=== PATIENT | female | born 1960 | race Caucasian/White ===

== ENCOUNTER 2023-05-18 07:38 | Outpatient (OUT) | payer OTHER, SELFPAY ==
--- NOTE | 2023-05-18 08:07 | P.CN_ITS ---
Consult Note: HPI Data of Consult Patient: new to practice Requesting Physician: Eda Christianson NP Primary Care Provider: Non-Staff Physician, MD Consult Narrative Reason for consult: establish care Narrative: Carmen Casiano a pleasant 62 year old female presents for evaluation and management on right hip pain that radiates into right lateral thigh, also has chronic low back pain with right sided radiculopathy. Pain 8/10 describes as a pulling sensation. Patients family doctor prescribed an anti-inflammatory and flexeril which is providing mild relief. No recent imaging or PT. KYLIE 58% cc:: CC: Eda Christianson NP Review of Systems ROS Status of ROS 10 or more systems reviewed and unremarkable except as noted in history and below Musculoskeletal Reports: back pain Exam Constitutional Documenting provider has reviewed patient's vital signs: yes Common normals: no apparent distress, oriented x3, healthy appearing, alert and well nourished General appearance: cooperative Nutritional appearance: obese HENMT Common normals: normocephalic, hearing grossly normal bilaterally and moist oral mucous membranes Head and scalp: normocephalic Eye Common normals: PERRL Pupil: PERRL Neck & C-Spine Common normals: full ROM General: normal visual inspection Chest Common normals: inspection of chest normal Respiratory Common normals: normal respiratory effort, no retractions and no use of a ccessory muscles Back & Pelvis Lumbar spine/lower back: ROM limited, pain with ROM and straight leg raise positive right Sacroiliac joints: SI joints normal Extremity Common normals: normal to inspection and full ROM Other: negative internal and external rotation of hip, no tenderness over GTB pain and pain with touch over right IT band pattern Extremity image (front): 1. Neuro Common normals: oriented x3, CN's II-XII intact bilaterally, moves all extremities, no focal motor deficits, no sensory deficits noted, deep tendon reflexes 2+ bilaterally and gait normal Sensorium/orientation: alert Motor exam: strength 5/5 throughout and no movement abnormalities noted Psych Common normals: mental status grossly normal, thought process normal, cooperative, affect normal, speech normal and activity/motor behavior normal Speech: normal speech Thought process: normal thought process Assessment and Plan Assessment and Plan (1) Iliotibial band tendonitis of right side: (2) Iliotibial band syndrome: (3) Lumbar stenosis: (4) Lumbar radiculopathy: (5) Lumbar spondylosis: (6) Lumbar degenerative disc disease: (7) Obesity: Assessment and Plan: The patient was counseled that proper dietary changes and consistent participation in a home exercise plan can lead to weight loss. Weight loss can help to improve functionality in patients with chronic pain.? Plan continue current medications through PCP finding benefit start topical OTC difclofenac to affected right IT band as discussed today BID- TID PRN PT for low back pain with radiculopathy and right IT band syndrome/tendonitis, patient would like to go to [facility] right IT band injection with Dr Palmer continue chiropractor care as tolerated no additional imaging at this time, reviewed [facility] spine xray from earlier this year which shows DDD, lumbar facet arthropathy f/u 6 weeks to further evaluate LBP with radiculopathy and assess right IT band pain
== END 2023-05-18 07:39 | disposition home or self-care (01) ==
PROVIDERS: Visit Provider Nurse Practitioner
DX: M76.31 Iliotibial band syndrome, right leg (principal); M77.9 Enthesopathy, unspecified; M48.061 Spinal stenosis, lumbar region without neurogenic claudication; M54.16 Radiculopathy, lumbar region; M47.816 Spondylosis without myelopathy or radiculopathy, lumbar region; M51.36 Other intervertebral disc degeneration, lumbar region; E66.9 Obesity, unspecified
CPT/HCPCS: G0463

== ENCOUNTER 2023-05-30 15:18 | Outpatient (OUT) | payer OTHER, SELFPAY ==
--- NOTE | 2023-05-30 16:00 | PM.CN ---
Consult Note: HPI Data of Consult Patient: known to practice within the last 3 years Consult date: 05/30/23 Requesting Physician: Calvin Palmer MD Primary Care Provider: Non-Staff Physician, Consult Narrative Reason for consult: right hip pain Narrative: 62yof who presents for assessment. pain in right hip with radiation down lateral aspect of right thigh. tenderness to palpation of right greater troch bursa. engages in provider directed home exercise program, with minimal benefit. utilizes celebrex. denies adverse med side effects or loss of bowel or bladder control. cc:: CC: Calvin Palmer MD Review of Systems ROS Status of ROS 10 or more systems reviewed and unremarkable except as noted in history and below Meds Home Medications and Allergies Home Medications Medication Instructions Recorded Confirmed Type aripiprazole 2 mg tablet (Abilify) 2 mg PO DAILY 05/18/23 05/18/23 History celecoxib 200 mg capsule (Celebrex) 200 mg PO BID PRN pain 05/18/23 05/18/23 History cholecalciferol (vitamin D3) 50 50 mcg PO DAILY 05/18/23 05/18/23 History mcg (2,000 unit) capsule (Vitamin D3) empagliflozin 10 mg tablet 10 mg PO DAILY 05/18/23 05/18/23 History (Jardiance) fluoxetine 20 mg capsule 40 mg PO DAILY 05/18/23 05/18/23 History furosemide 40 mg tablet 40 mg PO DAILY 05/18/23 05/18/23 History glipizide 2.5 mg tablet 2.5 mg PO DAILY 05/18/23 05/18/23 History pantoprazole 40 mg tablet,delayed 40 mg PO DAILY 05/18/23 05/18/23 History release potassium chloride 20 mEq 20 meq PO DAILY 05/18/23 05/18/23 History tablet,extended release(part/cryst) (Klor-Con M) rosuvastatin 40 mg tablet 40 mg PO DAILY 05/18/23 05/18/23 History sacubitril 24 mg-valsartan 26 mg 1 tab PO BID 05/18/23 05/18/23 History tablet (Entresto) spironolactone 25 mg tablet 25 mg PO DAILY 05/18/23 05/18/23 History tizanidine 4 mg tablet 4 mg PO TID PRN muscle spasticity 05/18/23 05/18/23 History Allergies Allergy/AdvReac Type Severity Reaction Status Date / Time No Known Drug Allergies Allergy Verified 05/18/23 08:49 Exam Narrative Exam Narrative: Psych-alert and oriented x 3.? Attentive and appropriate, constitutionally normal, displays normal mood and affect per situation.? There are no obvious deficits in memory, reasoning, or intellect.? Skin-no obvious rashes, bruising, erythema noted to the patient's area of pain. Extremities- extremities are warm with minimal edema and palpable pulses. Hip-tenderness to palpation is noted over the right greater trochanter..? Pain is elicited with internal and external rotation of the hip.? Hip provocative maneuvers are positive and consistent with the patient's normal pain.? Coordination remains intact.? Gait remains antalgic. Assessment and Plan Assessment and Plan (1) Lumbar spondylosis: (2) Lumbar stenosis: (3) Trochanteric bursitis of right hip: Plan 62yof who presents for assessment. worsening right sided hip pain. tenderness over right greater trochanter. given symptoms and failure to respond to conservative measures, prudent to attempt right trochanteric bursa injection. she is in agreement. medications reviewed, no changes. follow up in 3 months or sooner, if needed. Procedure: Right greater trochanteric bursa injection Medications: Bupivacaine 0.25% 4cc, kenalog 40mg I explained the details of the procedure to the patient including the risks, benefits and alternatives. We had an informed discussion and the patient verbalized understanding and signed the consent form. All questions were answered appropriately.? A time out was performed.? The skin overlying the right lateral hip was prepped with alcohol x3. A sterile syringe containing the above medication was attached to a 25 gauge, 3.5 inch needle under strict aseptic technique. The greater trochanter and point of tenderness was palpated. At this point, the needle was then advanced through the subcutaneous tissue down to os. The needle was withdrawn slightly and the contents of the syringe were gently injected without any resistance. The needle was removed and pressure was applied to the injection site to decrease the incidence of ecchymosis and hematoma formation.? A sterile bandage was applied. Post procedural instructions were given to the patient.
== END 2023-05-30 15:19 | disposition home or self-care (01) ==
LOC: PM 15:18
PROVIDERS: Visit Provider Anesthesiology
DX: M47.816 Spondylosis without myelopathy or radiculopathy, lumbar region (principal); M48.061 Spinal stenosis, lumbar region without neurogenic claudication; M70.61 Trochanteric bursitis, right hip
CPT/HCPCS: 20610

== ENCOUNTER 2023-06-09 12:48 | Outpatient (OUT) | payer OTHER, SELFPAY ==
--- NOTE | 2023-06-09 15:27 | P.CN_ITS ---
Consult Note: HPI Data of Consult Patient: known to practice within the last 3 years Requesting Physician: Calvin Palmer MD Primary Care Provider: Non-Staff Physician, Consult Narrative Reason for consult: f/u Narrative: Carmen Casiano a pleasant 62 year old female presents for evaluation and management of chronic right hip pain today 02/10. Patient reporting 75% ongoing pain relief from right GTB injection. Patient continues to have throbbing pain in posterior lumbar spine radiating to right hip area. cc:: CC: Calvin Palmer MD Review of Systems ROS Status of ROS 10 or more systems reviewed and unremark able except as noted in history and below Musculoskeletal Reports: back pain Meds Home Medications and Allergies Home Medications Medication Instructions Recorded Confirmed Type aripiprazole 2 mg tablet (Abilify) 2 mg PO DAILY 05/18/23 05/18/23 History celecoxib 200 mg capsule (Celebrex) 200 mg PO BID PRN pain 05/18/23 05/18/23 History cholecalciferol (vitamin D3) 50 50 mcg PO DAILY 05/18/23 05/18/23 History mcg (2,000 unit) capsule (Vitamin D3) empagliflozin 10 mg tablet 10 mg PO DAILY 05/18/23 05/18/23 History (Jardiance) fluoxetine 20 mg capsule 40 mg PO DAILY 05/18/23 05/18/23 History furosemide 40 mg tablet 40 mg PO DAILY 05/18/23 05/18/23 History glipizide 2.5 mg tablet 2.5 mg PO DAILY 05/18/23 05/18/23 History pantoprazole 40 mg tablet,delayed 40 mg PO DAILY 05/18/23 05/18/23 History release potassium chloride 20 mEq 20 meq PO DAILY 05/18/23 05/18/23 History tablet,extended release(part/cryst) (Klor-Con M) rosuvastatin 40 mg tablet 40 mg PO DAILY 05/18/23 05/18/23 History sacubitril 24 mg-valsartan 26 mg 1 tab PO BID 05/18/23 05/18/23 History tablet (Entresto) spironolactone 25 mg tablet 25 mg PO DAILY 05/18/23 05/18/23 History tizanidine 4 mg tablet 4 mg PO TID PRN muscle spasticity 05/18/23 05/18/23 History Allergies Allergy/AdvReac Type Severity Reaction Status Date / Time No Known Drug Allergies Allergy Verified 05/18/23 08:49 Exam Constitutional Documenting provider has reviewed patient's vital signs: yes Common normals: no apparent distress, oriented x3, healthy appearing, alert and well nourished General appearance: cooperative Nutritional appearance: obese HENMT Common normals: normocephalic, hearing grossly normal bilaterally and moist oral mucous membranes Head and scalp: normocephalic Eye Common normals: PERRL Pupil: PERRL Neck & C-Spine Common normals: full ROM General: normal visual inspection Chest Common normals: inspection of chest normal Respiratory Common normals: normal respiratory effort, no retractions and no use of accessory muscles Back & Pelvis Lumbar spine/lower back: ROM limited, pain with ROM and straight leg raise negative bilaterally Sacroiliac joints: SI joints normal Extremity Common normals: normal to inspection and full ROM Other: negative internal and external rotation of hip, no tenderness over GTB Neuro Common normals: oriented x3, CN's II-XII intact bilaterally, moves all extremities, no focal motor deficits, no sensory deficits noted, deep tendon reflexes 2+ bilaterally and gait normal Sensorium/orientation: alert Motor exam: strength 5/5 throughout and no movement abnormalities noted Psych Common normals: mental status grossly normal, thought process normal, cooperative, affect normal, speech normal and activity/motor behavior normal Speech: normal speech Thought process: normal thought process Assessment and Plan Assessment and Plan (1) Lumbar spondylosis: (2) Trochanteric bursitis of right hip: (3) Obesity: Qualifiers: Obesity type: due to excess calories Obesity classification: unspecified obesity classification Serious obesity comorbidity presence: unspecified whether serious comorbidity present Qualified Code(s): E66.09 - Other obesity due to excess calories Plan PT never started, pt will start consider bilateral L4-5 l5-S1 mbb x2 continue current medications f/u 6 weeks
== END 2023-06-09 12:49 | disposition home or self-care (01) ==
LOC: PM 12:48
PROVIDERS: Visit Provider Anesthesiology
DX: M47.816 Spondylosis without myelopathy or radiculopathy, lumbar region (principal); M70.61 Trochanteric bursitis, right hip; E66.09 Other obesity due to excess calories
CPT/HCPCS: G0463

== ENCOUNTER 2024-01-25 12:52 | Outpatient (OUT) | payer OTHER, SELFPAY ==
--- NOTE | 2024-01-25 13:52 | P.CN_ITS ---
Consult Note: HPI Data of Consult Patient: known to practice within the last 3 years Requesting Physician: Eda Christianson NP Primary Care Provider: Non-Staff Physician, MD Consult Narrative Reason for consult: low back right leg pain Narrative: Carmen Casiano a pleasant 63 year old female presents for evaluation and management of lumbar stenosis with NC. Patient following with NS who recommends right L4-5 TFESI prior to surgical intervention. Patient has failed to benefit from greater than 6 weeks of PT/HEP, tylenol, motrin, gabapentin 300mg TID, and tramadol 50mg PRN. cc:: CC: Eda Christianson NP Review of Systems ROS Status of ROS 10 or more systems reviewed and unremark able except as noted in history and below Musculoskeletal Reports: back pain Meds Home Medications and Allergies Home Medications ?Medication ?Instructions ?Recorded ?Confirmed ?Type aripiprazole 2 mg tablet (Abilify) 2 mg PO DAILY 05/18/23 05/18/23 History celecoxib 200 mg capsule (Celebrex) 200 mg PO BID PRN pain 05/18/23 05/18/23 History cholecalciferol (vitamin D3) 50 50 mcg PO DAILY 05/18/23 05/18/23 History mcg (2,000 unit) capsule (Vitamin D3) empagliflozin 10 mg tablet 10 mg PO DAILY 05/18/23 05/18/23 History (Jardiance) fluoxetine 20 mg capsule 40 mg PO DAILY 05/18/23 05/18/23 History furosemide 40 mg tablet 40 mg PO DAILY 05/18/23 05/18/23 History glipizide 2.5 mg tablet 2.5 mg PO DAILY 05/18/23 05/18/23 History pantoprazole 40 mg tablet,delayed 40 mg PO DAILY 05/18/23 05/18/23 History release potassium chloride 20 mEq 20 meq PO DAILY 05/18/23 05/18/23 History tablet,extended release(part/cryst) (Klor-Con M) rosuvastatin 40 mg tablet 40 mg PO DAILY 05/18/23 05/18/23 History sacubitril 24 mg-valsartan 26 mg 1 tab PO BID 05/18/23 05/18/23 History tablet (Entresto) spironolactone 25 mg tablet 25 mg PO DAILY 05/18/23 05/18/23 History tizanidine 4 mg tablet 4 mg PO TID PRN muscle spasticity 05/18/23 05/18/23 History Allergies Allergy/AdvReac Type Severity Reaction Status Date / Time No Known Drug Allergies Allergy Verified 05/18/23 08:49 Exam Constitutional Documenting provider has reviewed patient's vital signs: yes Common normals: no apparent distress, oriented x3, healthy appearing, alert and well nourished General appearance: cooperative Nutritional appearance: obese HENMT Common normals: normocephalic, hearing grossly normal bilaterally and moist oral mucous membranes Head and scalp: normocephalic Eye Common normals: PERRL Pupil: PERRL Neck & C-Spine Common normals: full ROM General: normal visual inspection Chest Common normals: inspection of chest normal Respiratory Common normals: normal respiratory effort, no retractions and no use of accessory muscles Back & Pelvis Lumbar spine/lower back: ROM limited, pain with ROM and straight leg raise positive right Sacroiliac joints: SI joints normal Other: pain following right L4,5,S1 dermatomal pattern strength 4/5 in RLE, 5/5 in LLE Extremity Common normals: normal to inspection and full ROM Other: negative internal and external rotation of hip, no tenderness over GTB Neuro Common normals: oriented x3, CN's II-XII intact bilaterally, moves all extremities, no focal motor deficits, no sensory deficits noted and deep tendon reflexes 2+ bilaterally Sensorium/orientation: alert Gait (neuro): antalgic Motor exam: no movement abnormalities noted Psych Common normals: mental status grossly normal, thought process normal, cooperative, affect normal, speech normal and activity/motor behavior normal Speech: normal speech Thought process: normal thought process Results Additional Findings Additional findings: If on a controlled substance or opioids, I have checked an [place] report on this patient and there are no aberrancies noted in the prescribing history.??If on a controlled substance or opioid a drug screen was completed and reviewed within the last year, and if there has not been a drug screen completed we ordered one today to monitor higher risk, state monitored pain medication use. As part of providing excellent, safe, comprehensive care, the following was completed at our patient's visit: 1. A medication reconciliation and review to ensure accurate knowledge of current/active medications, including asking our patients to inform us about any [id number] medications or herbal remedies/nutritional supplements/alternative remedies. 2. A review to specifically ensure our patients have had annual screening for screening for depression, screening for tobacco use, and screening for unhealthy alcohol use. For concerning screenings had a discussion with the patient, provided patient education, and recommended follow-up with primary care provider when appropriate. If patient noted with a risk of falling, they received education on strength, gait, and balance training to prevent future risk of falling. Assessment and Plan Assessment and Plan (1) Lumbar stenosis with neurogenic claudication: (2) Lumbar radiculopathy: Plan right L4-5 L5-S1 TFESI under fluoroscopy risks vs benefits reviewed continue medications through PCP/NS f/u 2 weeks after RON[facility]
== END 2024-01-25 12:53 | disposition home or self-care (01) ==
LOC: PM 12:53
PROVIDERS: Visit Provider Nurse Practitioner
DX: M48.062 Spinal stenosis, lumbar region with neurogenic claudication (principal); M54.16 Radiculopathy, lumbar region
CPT/HCPCS: G0463

== ENCOUNTER 2024-02-06 08:42 | Day surgery (SDC) | payer OTHER, SELFPAY ==
[2024-02-06 08:53] VITALS: BP 158/89; PULSE 67; TEMP 36.3; O2SAT 97
--- OUTSIDE RECORDS SUMMARY | 2024-02-06 09:03 | XMS_ITS | CCD ---
Author Organization [facility] Inform ion [facility] Care Team Providers Care Metal Grinder Name Role Phone Mulu Dean Primary Care Provider Mulu DEAN Primary Care Physician [phone] Myron Rust Primary Care Physician Jermaine CREDIT COLLECTIONS CLERK - UPPER MARKER, Mulu Primary Care Pro vider NON STAFF Primary Care Provider Unavailabl e DO Joo Ramos Emergency Provider MD Marilyn Sun Admit Provider [phone] MD Marilyn Sun Attending Provider DO Joo Ramos Emergency Provider MD Marilyn Sun Admit Provider MD José Sanchez Attending Provider MD Lupis Schwartz Primary Care Provider Marilyn Sun Admitting Unavailable José Sanchez Attending Unavailable Lupis Schwartz Primary Care Unavailable Lupis SCHWARTZ Primary Care Physician Jermaine CREDIT COLLECTIONS CLERK - UPPER MARKER, Mulu Primary Care Pro vider Yocasta MOREJON - Myron VILLATORO Primary Care Provider MYRON RUST Referring Unavailable MYRON RUST Primary Care Unavailable Myron Rust Primary Care Physician KAMALJIT MENENDEZ Attending Unavailable KAMALJIT MENENDEZ Referring Unavailable YOCASTA, MYRON Primary Care Unavailable ALIRIO RAMIREZ Referring Unavailab le YOCASTA, MYRON Primary Care Unavailable NATHANIEL, MIHIR Referring Unavailable YOCASTA, MYRON Primary Care Unavailable KAMALJIT MENENDEZ Referring Unavailable YOCASTA, MYRON Primary Care Unavailable YOCASTA, MYRON Referring Unavailable YOCASTA, MYRON Primary Care Unavailable YOCASTA, MYRON Referring Unavailable YOCASTA, MYRON Primary Care Unavailable YOCASTA, MYRON Referring Unavailable YOCASTA, MYRON Primary Care Unavailable NATHANIEL, MIHIR Referring Unavailable YOCASTA, MYRON Primary Care Unavailable NATHANIEL, MIHIR Referring Unavailable YOCASTA, MYRON Primary Care Unavailable YOCASTA, MYRON Primary Care Unavailable AURA MENONELIN Attending Unavailable LYNSEY VESELIN Attending Unavailable YOCASTA, MYRON Primary Care Unavailable NATHANIEL, MIHIR Referring Unavailable YOCASTA, MYRON Primary Care Unavailable Alirio Ramirez Referring UnavailAlirio Martinez Admitting UnavailAlirio Martinez Consulting Unavaila Alirio Brandon Attending UnavailMD Alirio Martinez Consulting Unava ilAlirio Bird Consulting Unavaila ble Walker Phillip Attending Unavaila ble Walker Phillip Attending Unavaila Scott Rivera Attending Unavailable Yocasta, MSN, CREDIT COLLECTIONS CLERK-UPPER MARKER Myron Hamilton Attending U navailable Yocasta, MSN, CREDIT COLLECTIONS CLERK-UPPER MARKER Myron Hamilton Attending U navailable Yocasta, MSN, CREDIT COLLECTIONS CLERK-UPPER MARKER Myron Hamilton Attending U navailable Yocasta, MSN, CREDIT COLLECTIONS CLERK-UPPER MARKER Myron Hamilton Attending U navailable Yocasta, MSN, CREDIT COLLECTIONS CLERK-UPPER MARKER Myron Hamilton Attending U navailable Ansley Carrero Attending Unavailable Yocasta, MSN, CREDIT COLLECTIONS CLERK-UPPER MARKER Myron L. Attending U navailable Yocasta, MSN, CREDIT COLLECTIONS CLERK-UPPER MARKER Myron Hamilton Attending U navailable Yocasta, MSN, CREDIT COLLECTIONS CLERK-UPPER MARKER Myron Hamilton Attending U navailable NONE, XXXX Referring Unavailable Alirio Ramirez Attending Unavaila Alirio Brandon Attending Unavaila ble NONE, XXXX Referring Unavailable Walker Phillip Talal Admitting Unavaila ble Walker Phillip Talal Attending Walker Banegas Referring Viktoria velazquez Allergies Allergy Classification Reported Allergen(s) Allergy Type Date of Onset Reaction(s) Facility amLODIPine (1 source) amLODIPine; Translations: [amlodipine] Drug Allergy Leg Edema [facility] Angiotensin Converting Enzyme (DESMOND) Inhibitors (1 source) Lisinopril; Translations: [lisinopril] Drug Allergy Persistent cough (finding), Tongue swelling (finding) [facility] metFORMIN (1 source) metFORMIN; Translations: [metformin] Drug Allergy Diarrhea (finding) [facility] (20 sources) amLODIPine; Translations: [amlodipine] Drug Allergy Leg Edema [facility] (20 sources) Lisinopril; Translations: [lisinopril] Drug Allergy Persistent cough (finding), Tongue swelling (finding) [facility] (20 sources) metFORMIN; Translations: [metformin] Drug Allergy Diarrhea (finding) [facility] (1 source) No Known Medication Allergies; Translations: [No Known Medication Allergies] Propensity to adverse reactions (disorder) [facility] Repository Medications Current Medications Medication Drug Class(es) Dates Sig (Normalized) Sig (Original) albuterol 0.83 mg/ml inhalation solution (20 sources) beta2-Adrenergic Agonist Start: 10-11-2023 take 2.5 mg by inhalation every six hours albuterol 0.083% Inh Rochelle 3 mL 2.5 mg, 3 mL, Inhalation, q6hr Shortness of breath or wheezing, 100 EA, Refill(s) 1, [facility] #[id number], 168, cm, 10/11/23 14:32:00 EDT, Height/Length Dosing, 160.2, kg, 10/11/23 14:32:00 EDT, Weight Dosing Start Date: 10/11/23 Status: Ordered Start: 05-21-2021 albuterol (PRO VENTIL) nebulizer solution 2.5 mg Start: 03-17-2020 albuterol (PRO VENTIL) nebulizer solution 2.5 mg Start: 09-07-2019 albuterol (PRO VENTIL) nebulizer solution 2.5 mg take 2 puff(s) by in halation every four hours as needed for wheezing albuterol sulfate HFA 108 (90 Base) MCG/ACT inhaler Inhale 2 puffs into the lungs every 4 hours as needed for Wheezing 0 Active take 2 puff(s) by in halation every four hours as needed for wheezing albuterol sulfate HFA 108 (90 Base) MCG/ACT inhaler Inhale 2 puffs into the lungs every 4 hours as needed for Wheezing 0 Active Alcohol wipes (20 sources) Start: 04-13-2022 Alcohol wipes Alcohol wipes, See Instructions, 100 EA, 3, Use to check BS daily dx E11.9, [facility] #[id number], Supply, 163, cm, 12/30/21 11:09:00 EDT, Height/Length Dosing, 154, kg, 12/30/21 11:09:00 EDT, Weight Dosing Start Date: 04/13/22 Status: Ordered Start: 06-03-2021 Alcohol wipes Alcohol wipes, See Instructions, 300 EA, 3, Use to check BS TID and PRN dx E11.9, [facility], Supply, 170, cm, 05/27/21 8:31:00 EST, Height/Length Dosing, 157.8, kg, 05/27/21 8:31:00 EST, Weight Dosing Start Date: 06/03/21 Status: Ordered ARIPiprazole 2 mg oral tablet (20 sources) Atypical Antipsychotic Start: 01-19-2024 take 1 tablet by mouth once daily Abilify 2 mg Tab 2 mg = 1 tab(s), Oral, Daily, # 90 tab(s), Refills(s) 3, Pharmacy: [facility] #[id number], 167.6, cm, 12/23/23 10:59:00 EDT, Height/Length Dosing, 136, kg, 12/23/23 10:59:00 EDT, Weight Dosing Start Date: 01/19/24 Status: Ordered Start: 12-30-2021 take 1 tablet by manish th once daily Abilify 2 mg Tab 2 mg = 1 tab(s), Oral, Daily, # 90 tab(s), Refills(s) 3, Pharmacy: [facility] #[id number], 167, cm, 01/11/23 11:15:00 EDT, Height/Length Dosing, 138, kg, 01/11/23 11:15:00 EDT, Weight Dosing Start Date: 01/14/23 Status: Ordered ARIPiprazole (AB ILIFY PO) Abilify 0 Active atorvastatin 80 mg oral tablet (20 sources) HMG-CoA Reductase Inhibitor take 1 tablet by mouth once daily atorvastatin (LIPITOR) 80 MG tablet Take 1 tablet by mouth nightly 0 Active Blood Pressure Kit - XL Cuff (1 source) Start: Blood Pressure Kit - XL Cuff Blood Pressure Kit - XL Cuff, See Instructions, 1 EA, 0, Use at home daily, [facility], Supply, 170, cm, 10/02/19 13:41:00 EDT, Height/Length Measured, 156, kg, 10/02/19 13:41:00 EDT, Weight Measured Start Date: 10/02/19 Status: Ordered calcium chloride 0.0014 meq/ml / potassium chloride 0.004 meq/ml / sodium chloride 0.103 meq/ml / sodium lactate 0.028 meq/ml injectable solution (2 sources) Start: End: lactated ringers infusion celecoxib 200 mg oral capsule (3 sources) Nonsteroidal Anti-inflammatory Drug Start: take 1 capsule by mouth twice daily as needed for pain CeleBREX 200 mg Cap 200 mg = 1 cap(s), Oral, BID, PRN as needed for pain, with food, # 60 cap(s), Refills(s) 0, [facility]: [facility][id number], 167, cm, 05/09/23 8:15:00 EST, Height/Length Dosing, 145.6, kg, 05/09/23 8:15:00 EST, Weight Dosing Start Date: 05/09/23 Status: Ordered cholecalciferol 0.125 mg oral capsule (7 sources) Vitamin D Start: 023 take 1 capsule by mouth once daily at mealtime D 5000 125 MCG (5000 UT) CAPS capsule take 1 capsule by mouth once daily with food 0 10/14/2022 Active 0.5 ml dulaglutide 3 mg/ml auto-injector (20 sources) GLP-1 Receptor Agonist Start: 024 Trulicity Pen 1.5 mg/0.5 mL subcutaneous solution See Instructions, inject 1 AND 1/2 milligrams subcutaneously weekly, # 2 mL, Refills(s) 0, Pharmacy: [facility] #[id number], 167.6, cm, 12/23/23 10:59:00 EDT, Height/Length Dosing, 136, kg, 12/23/23 10:59:00 EDT, Weight Dosing Start Date: 01/17/24 Status: Ordered Start: 12-22-2023 inject 1.5 mg by sub cutaneous injection every week Trulicity Pen 1.5 mg/0.5 mL subcutaneous solution 1.5 mg, SubCutaneous, qWeek, # 4 EA, Refills(s) 0, Pharmacy: [facility] #[id number], 168, cm, 12/06/23 14:55:00 EDT, Height/Length Dosing, 139, kg, 12/06/23 14:55:00 EDT, Weight Dosing Start Date: 12/22/23 Status: Ordered Start: 10-11-2023 inject 1.5 mg by sub cutaneous injection every week Trulicity Pen 1.5 mg/0.5 mL subcutaneous solution 1.5 mg, SubCutaneous, qWeek, # 4 EA, Refills(s) 0, Pharmacy: [facility] #[id number], 168, cm, 10/11/23 14:32:00 EDT, Height/Length Dosing, 160.2, kg, 10/11/23 14:32:00 EDT, Weight Dosing Start Date: 10/11/23 Status: Ordered Start: 09-13-2022 Dulaglutide 0. 75 MG/0.5ML SOPN Inject 0.75 mg into the skin 0 09/13/2022 Active empagliflozin 10 mg oral tablet (20 sources) Sodium-Glucose Cotransporter 2 Inhibitor Start: 08-29-2023 take 1 tablet by mouth once daily Jardiance 10 mg oral tablet 10 mg, Oral, Daily, # 90 tab(s), Refills(s) 2, [id number], 167, cm, 08/10/23 14:24:00 EST, Height/Length Dosing, 151.4, kg, 08/10/23 14:24:00 EST, Weight Dosing Start Date: 08/29/23 Status: Ordered Start: 09-22-2022 empagliflozin (JARDIANCE) 10 MG tablet Take by mouth 0 09/22/2022 Active FLUoxetine 20 mg oral capsule (20 sources) Serotonin Reuptake Inhibitor Start: 09-23-2023 take 2 capsules by mouth once daily FLUoxetine 20 mg Cap 40 mg = 2 cap(s), Oral, Daily, # 180 cap(s), Refills(s) 1, [facility]: [facility] #[id number], 167, cm, 08/10/23 14:24:00 EST, Height/Length Dosing, 151.4, kg, 08/10/23 14:24:00 EST, Weight Dosing Start Date: 09/23/23 Status: Ordered Start: 03-30-2023 take 2 capsules by m outh once daily FLUoxetine 20 mg Cap 40 mg = 2 cap(s), Oral, Daily, covering for Krissy Rust, # 180 cap(s), Refills(s) 1, [facility][id number], 167, cm, 03/18/23 11:56:00 EDT, Height/Length Dosing, 136.6, kg, 03/18/23 11:56:00 EDT, Weight Dosing Start Date: 03/30/23 Status: Ordered Start: 10-08-2022 take 2 capsules by m outh once daily FLUoxetine 20 mg Cap 40 mg = 2 cap(s), Oral, Daily, # 180 cap(s), Refills(s) 1, [facility]acy: [facility] #[id number], 167, cm, 09/29/22 11:37:00 EDT, Height/Length Dosing, 149.2, kg, 09/29/22 11:37:00 EDT, Weight Dosing Start Date: 10/08/22 Status: Ordered Start: 09-10-2022 take 40 mg by mouth once daily Fluoxetine Active 40 MG PO Daily September 10, 2022 1:00am Start: 04-13-2022 take 2 capsules by m outh once daily FLUoxetine 20 mg Cap 40 mg = 2 cap(s), Oral, Daily, # 180 cap(s), Refills(s) 1, [facility][id number], 163, cm, 12/30/21 11:09:00 EDT, Height/Length Dosing, 154, kg, 12/30/21 11:09:00 EDT, Weight Dosing Start Date: 04/13/22 Status: Ordered Start: 04-07-2021 take 2 capsules by m outh once daily FLUoxetine 20 mg Cap 40 mg = 2 cap(s), Oral, Daily, # 180 cap(s), Refills(s) 1, Pharmacy: [facility], 170, cm, 10/13/20 9:06:00 EDT, Height/Length Dosing, 153.3, kg, 10/13/20 9:06:00 EDT, Weight Dosing Start Date: 04/07/21 Status: Ordered take 1 capsule by mo uth once daily FLUoxetine (PROZAC) 40 MG capsule Take 1 capsule by mouth nightly 0 Active fluticasone / salmeterol (20 sources) Corticosteroid, beta2-Adrenergic Agonist Start: 09-16-2022 Fluticasone-Salmeterol (ADVAIR DISKUS IN) See Instructions, Refill(s) 0 0 09/16/2022 Active Start: 09-16-2022 Advair Diskus 100 mcg-50 mcg inhalation powder See Instructions, Refill(s) 0 Start Date: 09/16/22 Status: Ordered Start: 09-14-2022 Fluticasone Pr opion-Salmeterol (Advair Diskus) 100-50 mcg/dose blister with device Active 1 INH INHALATION Twice daily 60 September 14, 2022 12:00am furosemide 40 mg oral tablet (20 sources) Loop Diuretic Start: 08-10-2023 take 1 tablet by mouth once daily furosemide 40 mg Tab 40 mg = 1 tab(s), Oral, Daily, # 90 tab(s), Refills(s) 1, [facility]: [facility] #[id number], 167, cm, 08/10/23 14:24:00 EST, Height/Length Dosing, 151.4, kg, 08/10/23 14:24:00 EST, Weight Dosing Start Date: 08/10/23 Status: Ordered Start: 09-22-2022 Lasix 20 mg Ta b 20 mg = 1 tab(s), Oral, As Directed, # 30 tab(s), Refills(s) 1, [facility]acy: [facility] #[id number], 167, cm, 09/29/22 11:37:00 EDT, Height/Length Dosing, 149.2, kg, 09/29/22 11:37:00 EDT, Weight Dosing Start Date: 09/29/22 Status: Ordered Start: 09-16-2022 take 1 tablet by manish th once daily furosemide 40 mg Tab 40 mg = 1 tab(s), Oral, Daily, # 90 tab(s), Refills(s) 1, Pharmacy: [facility] #[id number], 167, cm, 11/26/22 13:06:00 EDT, Height/Length Dosing, 140, kg, 11/26/22 13:06:00 EDT, Weight Dosing Start Date: 12/27/22 Status: Ordered Start: 09-14-2022 take 1 tablet by manish th once daily Furosemide (Lasix) 40 mg tablet Active 40 MG PO Daily September 14, 2022 12:00am Start: 08-20-2022 take 2 tablets by mo [facility] once daily Lasix 20 mg Tab 40 mg = 2 tab(s), Oral, Daily, Take with potassium supplment., # 180 tab(s), Refills(s) 5, [facility]: [facility] #[id number], 163, cm, 08/20/22 14:05:00 EST, Height/Length Dosing, 155, kg, 08/20/22 14:05:00 EST, Weight Dosing Start Date: 08/20/22 Status: Ordered Start: 07-27-2021 End: 09-14-2022 take 20 mg by mouth once daily Furosemide Discontinued 20 MG PO Daily September 10, 2022 1:00am September 14, 2022 11:24am glipiZIDE er 2.5 mg 24 hr extended release oral tablet (20 sources) Sulfonylurea Start: 09-23-2023 take 1 tablet by mouth once daily glipiZIDE 2.5 mg ER Tab 2.5 mg = 1 tab(s), Oral, Daily, # 90 tab(s), Refills(s) 1, Pharmacy: [facility] #[id number], 167, cm, 08/10/23 14:24:00 EST, Height/Length Dosing, 151.4, kg, 08/10/23 14:24:00 EST, Weight Dosing Start Date: 09/23/23 Status: Ordered Start: 10-08-2022 take 1 tablet by manish th once daily glipiZIDE (GLUCOTROL XL) 2.5 MG extended release tablet Take 1 tablet by mouth daily 0 10/08/2022 Active Start: 04-13-2022 take 1 tablet by manish th once daily glipiZIDE 2.5 mg ER Tab 2.5 mg = 1 tab(s), Oral, Daily, # 90 tab(s), Refills(s) 1, [id number], 163, cm, 12/30/21 11:09:00 EDT, Height/Length Dosing, 154, kg, 12/30/21 11:09:00 EDT, Weight Dosing Start Date: 04/13/22 Status: Ordered Start: 12-30-2021 take 1 tablet by manish once daily glipiZIDE 2.5 mg ER Tab 2.5 mg = 1 tab(s), Oral, Daily, # 90 tab(s), Refills(s) 1, Pharmacy: [facility], 163, cm, 12/30/21 11:09:00 EDT, Height/Length Dosing, 154, kg, 12/30/21 11:09:00 EDT, Weight Dosing Start Date: 12/30/21 Status: Ordered Glucometer (20 sources) Start: 06-03-2021 Glucometer Glucometer, See Instructions, 1 EA, 0, Glucometer to test BS TID and PRN dx E11.9, [facility], Supply, 170, cm, 05/27/21 8:31:00 EST, Height/Length Dosing, 157.8, kg, 05/27/21 8:31:00 EST, Weight Dosing Start Date: 06/03/21 Status: Ordered Glucose (1 source) Start: 06-03-2021 Glucose Kit Glucose Kit, See Instructions, 1 EA, 0, Glucose meter. Include autolet, matching test strips, lancets, & alcohol wipes, #300 or as allowed by insurance; Test TID and PRN. DX: E11.9, [facility], [facility], 170, cm, 05/27/21 8:31:00 EST, Height... Start Date: 06/03/21 Status: Ordered hydroCHLOROthiazide 50 mg oral tablet (20 sources) Thiazide Diuretic Start: 04-13-2022 take 1 tablet by mouth once daily hydrochlorothiazide 50 mg Tab 50 mg = 1 tab(s), Oral, Daily, # 90 tab(s), Refills(s) 1, [facility]: [facility] #[id number], 163, cm, 12/30/21 11:09:00 EDT, Height/Length Dosing, 154, kg, 12/30/21 11:09:00 EDT, Weight Dosing Start Date: 04/13/22 Status: Ordered Start: 08-03-2021 take 1 tablet by [facility] once daily hydrochlorothiazide 50 mg Tab 50 mg = 1 tab(s), Oral, Daily, # 30 tab(s), Refills(s) 5, Pharmacy: [facility], 170, cm, 07/28/21 10:34:00 EST, Height/Length Dosing, 152, kg, 07/28/21 10:34:00 EST, Weight Dosing Start Date: 08/03/21 Status: Ordered take 2 tablets by [facility] once daily hydroCHLOROthiazide (HYDRODIURIL) 25 MG tablet Take 2 tablets by mouth daily 0 Active take 1 tablet by [facility] once daily hydroCHLOROthiazide (HYDRODIURIL) 25 MG tablet Take 25 mg by mouth daily 0 Active icosapent ethyl 1000 mg oral capsule (1 source) Start: 05-29-2021 Vascepa 1 g oral capsule 2 gram = 2 cap(s), Oral, BID, # 120 cap(s), Refills(s) 5, Pharmacy: [facility], 170, cm, 05/27/21 8:31:00 EST, Height/Length Dosing, 157.8, kg, 05/27/21 8:31:00 EST, Weight Dosing Start Date: 05/29/21 Status: Ordered loratadine 10 mg oral tablet (20 sources) Start: 09-23-2020 take 1 tablet by mouth once daily as needed loratadine 10 mg Tab 10 mg = 1 tab(s), Oral, Daily, PRN as needed for allergy symptoms, # 90 tab(s), Refills(s) 3, Pharmacy: [facility] #[id number], 163, cm, 12/30/21 11:09:00 EDT, Height/Length Dosing, 154, kg, 12/30/21 11:09:00 EDT, Weight Dosing Start Date: 04/13/22 Status: Ordered losartan potassium 50 mg oral tablet (17 sources) Angiotensin 2 Receptor Shiv Start: 08-20-2022 losartan (COZAAR) 50 MG tablet Take by mouth 0 08/20/2022 Active meloxicam (7 sources) Nonsteroidal Anti-inflammatory Drug MELOXICAM PO Meloxicam 0 Active metFORMIN hydrochloride 500 mg oral tablet (18 sources) Biguanide Start: 08-24-2021 take 1 tablet by mouth twice daily at mealtime metformin 500 mg oral tablet 500 mg = 1 tab(s), Oral, BID, with meals, # 60 tab(s), Refills(s) 2, Pharmacy: [facility] , 170, cm, 07/28/21 10:34:00 EST, Height/Length Dosing, 152, kg, 07/28/21 10:34:00 EST, Weight Dosing Start Date: 08/24/21 Status: Ordered montelukast 10 mg oral tablet (20 sources) Leukotriene Receptor Antagonist Start: 10-16-2019 take 1 tablet by mouth once daily in the evening Singulair 10 mg Tab 10 mg = 1 tab(s), Oral, qPM, # 30 tab(s), Refills(s) 2, Pharmacy: [facility] , 170, cm, 10/16/19 9:09:00 EDT, Height/Length Measured, 154.3, kg, 10/16/19 9:09:00 EDT, Weight Measured Start Date: 10/16/19 Status: Ordered 24 hr nicotine 0.875 mg/hr transdermal system (6 sources) Cholinergic Nicotinic Agonist Start: 09-22-2022 End: 10-06-2022 nicotine 21 mg/24 hr Transderm ER Film 1 patch(es), Topical, Daily for 14 day(s), 14 EA, Refill(s) 0, [facility] #[id number], 167, cm, 09/22/22 8:24:00 EDT, Height/Length Dosing, 157.4, kg, 09/22/22 8:24:00 EDT, Weight Dosing Start Date: 09/22/22 Stop Date: 10/06/22 Status: Ordered omeprazole 20 mg delayed release oral capsule (17 sources) Proton Pump Inhibitor take 1 capsule by mouth once daily omeprazole (PRILOSEC) 20 MG delayed release capsule Take 1 capsule by mouth daily 0 Active pantoprazole 40 mg delayed release oral tablet (20 sources) Proton Pump Inhibitor Start: 09-01-2019 take 1 tablet by mouth once daily Pantoprazole [address] Tab 40 mg = 1 tab(s), Oral, Daily, # 90 tab(s), Refills(s) 3, [facility]acy: [facility] #[id number], 167, cm, 01/11/23 11:15:00 EDT, Height/Length Dosing, 138, kg, 01/11/23 11:15:00 EDT, Weight Dosing Start Date: 02/10/23 Status: Ordered rosuvastatin calcium 40 mg oral tablet (20 sources) HMG-CoA Reductase Inhibitor Start: 06-28-2023 take 1 tablet by mouth once daily Crestor 40 mg Tab 40 mg = 1 tab(s), Oral, Daily, # 90 tab(s), Refills(s) 3, [facility]acy: [facility] #[id number], 167, cm, 05/09/23 8:15:00 EST, Height/Length Dosing, 145.6, kg, 05/09/23 8:15:00 EST, Weight Dosing Start Date: 06/28/23 Status: Ordered Start: 10-08-2022 take 1 tablet by manish th once daily Crestor 40 mg Tab 40 mg = 1 tab(s), Oral, Daily, # 90 tab(s), Refills(s) 1, [facility]: [facility] #[id number], 167, cm, 09/29/22 11:37:00 EDT, Height/Length Dosing, 149.2, kg, 09/29/22 11:37:00 EDT, Weight Dosing Start Date: 10/08/22 Status: Ordered Start: 04-13-2022 take 1 tablet by manish th once daily Crestor 40 mg Tab 40 mg = 1 tab(s), Oral, Daily, # 90 tab(s), Refills(s) 1, [facility]: [facility] #[id number], 163, cm, 12/30/21 11:09:00 EDT, Height/Length Dosing, 154, kg, 12/30/21 11:09:00 EDT, Weight Dosing Start Date: 04/13/22 Status: Ordered Start: 12-30-2021 take 1 tablet by [facility] once daily Crestor 40 mg Tab 40 mg = 1 tab(s), Oral, Daily, # 30 tab(s), Refills(s) 5, Pharmacy: [facility], 163, cm, 12/30/21 11:09:00 EDT, Height/Length Dosing, 154, kg, 12/30/21 11:09:00 EDT, Weight Dosing Start Date: 12/30/21 Status: Ordered sacubitril 24 mg / valsartan 26 mg oral tablet (18 sources) Angiotensin 2 Receptor Shiv Start: 09-29-2022 End: 05-11-2023 take 1 tablet by mouth twice daily ENTRESTO 24-26 MG per tablet take 1 tablet by mouth twice a day (STOP LOSARTAN 50MG) 0 11/30/2022 Active 0.25 mg, 0.5 mg dose 1.5 ml semaglutide 1.34 mg/ml pen injector (9 sources) Start: 09-06-2022 Semaglutide,0. 25 or 0.5MG/DOS, 2 MG/1.5ML SOPN Inject 0.25 mg into the skin 0 09/06/2022 Active 3 ml sodium chloride 9 mg/ml injection (2 sources) Start: 03-17-2020 sodium chlorid e flush 0.9 % injection 10 mL Start: 03-17-2020 sodium chlorid e flush 0.9 % injection 10 mL spironolactone 25 mg oral tablet (20 sources) Aldosterone Antagonist Start: 10-11-2023 End: 04-08-2024 take 1 tablet by mouth once daily spironolactone 25 mg Tab 25 mg = 1 tab(s), Oral, Daily, X 90 day(s), # 90 tab(s), Refills(s) 1, [facility]: [facility] #[id number], 168, cm, 10/11/23 14:32:00 EDT, Height/Length Dosing, 160.2, kg, 10/11/23 14:32:00 EDT, Weight Dosing Start Date: 10/11/23 Stop Date: 04/08/24 Status: Ordered Start: 12-14-2022 spironolactone (ALDACTONE) 25 MG tablet Start: 09-20-2022 take 1 tablet by manish th twice daily spironolactone 25 mg Tab 25 mg = 1 tab(s), Oral, BID, # 60 tab(s), Refills(s) 4, Pharmacy: [facility] #[id number], 163, cm, 09/06/22 11:28:00 EST, Height/Length Dosing, 154, kg, 09/06/22 11:28:00 EST, Weight Dosing Start Date: 09/20/22 Status: Ordered Start: 09-10-2022 take 25 mg by mouth twice daily Spironolactone Active 25 MG PO Twice daily September 10, 2022 1:00am Start: 08-23-2022 take 1 tablet by manish th twice daily spironolactone 25 mg Tab 25 mg = 1 tab(s), Oral, BID, # 60 tab(s), Refills(s) 0, Pharmacy: [facility] #[id number], 163, cm, 08/20/22 14:05:00 EST, Height/Length Dosing, 155, kg, 08/20/22 14:05:00 EST, Weight Dosing Start Date: 08/23/22 Status: Ordered Symbicort 160/4.5 inhalation aerosol with adapter (5 sources) Start: 07-23-2022 Symbicort 160/ 4.5 inhalation aerosol with adapter 2 puff(s), Inhalation, BID, 1 EA, Refill(s) 5, rinse mouth and throat after use, [facility] #[id number], 163, cm, 12/30/21 11:09:00 EDT, Height/Length Dosing, 154, kg, 12/30/21 11:09:00 EDT, Weight Dosing Start Date: 07/23/22 Status: Ordered Start: 10-26-2021 take 2 puff(s) by in halation twice daily Symbicort 160/4.5 inhalation aerosol with adapter 2 puff(s), Inhalation, BID, 1 EA, Refill(s) 5, rinse mouth and throat after use, [facility], 170, cm, 07/28/21 10:34:00 EST, Height/Length Dosing, 152, kg, 07/28/21 10:34:00 EST, Weight Dosing Start Date: 10/26/21 Status: Ordered 60 actuat tiotropium 0.58714 mg/actuat inhalation spray (20 sources) Anticholinergic Start: 12-30-2021 take 2 puff(s) by inhalation once daily Spiriva Respimat 1.25 mcg/inh inhalation aerosol 2 puff(s), Inhalation, Daily, 3 EA, Refill(s) 3, [facility], 163, cm, 12/30/21 11:09:00 EDT, Height/Length Dosing, 154, kg, 12/30/21 11:09:00 EDT, Weight Dosing Start Date: 12/30/21 Status: Ordered tiotropium (SPIR JOHANN RESPIMAT) 1.25 MCG/ACT AERS inhaler Inhale 2 puffs into the lungs daily 0 Active tiZANidine 4 mg oral tablet (13 sources) Central alpha-2 Adrenergic Agonist Start: 05-09-2023 take 1 tablet by mouth every eight hours as needed for muscle spasms tiZANidine 4 mg Tab 4 mg = 1 tab(s), Oral, q8hr, PRN Spasm, # 30 tab(s), Refills(s) 0, Pharmacy: [facility] #[id number], 167, cm, 05/09/23 8:15:00 EST, Height/Length Dosing, 145.6, kg, 05/09/23 8:15:00 EST, Weight Dosing Start Date: 05/09/23 Status: Ordered Start: 04-26-2023 take 1 tablet by manish th every eight hours as needed for muscle spasms tiZANidine 4 mg Tab 4 mg = 1 tab(s), Oral, q8hr, PRN Spasm, # 20 tab(s), Refills(s) 0, Pharmacy: [facility] #[id number], 167, cm, 04/26/23 11:10:00 EDT, Height/Length Dosing, 141.8, kg, 04/26/23 11:10:00 EDT, Weight Dosing Start Date: 04/26/23 Status: Ordered traMADol hydrochloride 50 mg oral tablet (4 sources) Opioid Agonist Start: 01-09-2024 take 1 tablet by mouth every six hours as needed for pain traMADOL 50 mg Tab 50 mg = 1 tab(s), Oral, q6hr, PRN for pain, # 28 tab(s), Refills(s) 0, Pharmacy: [facility] #[id number], 167.6, cm, 12/23/23 10:59:00 EDT, Height/Length Dosing, 136, kg, 12/23/23 10:59:00 EDT, Weight Dosing Start Date: 01/09/24 Status: Ordered Start: 11-25-2023 take 1 tablet by manish th every six hours as needed for pain traMADOL 50 mg Tab 50 mg = 1 tab(s), Oral, q6hr, PRN for pain, # 28 tab(s), Refills(s) 0, Pharmacy: [facility] #[id number], 168, cm, 11/25/23 14:36:00 EDT, Height/Length Dosing, 141.8, kg, 11/25/23 14:36:00 EDT, Weight Dosing Start Date: 11/25/23 Status: Ordered traZODone hydrochloride 50 mg oral tablet (20 sources) Serotonin Reuptake Inhibitor Start: 10-11-2023 take 1 tablet by mouth once daily at bedtime traZODONE 50 mg Tab 50 mg = 1 tab(s), Oral, Once a day (at bedtime), # 30 tab(s), Refills(s) 0, Pharmacy: [facility] #[id number], 168, cm, 10/11/23 14:32:00 EDT, Height/Length Dosing, 160.2, kg, 10/11/23 14:32:00 EDT, Weight Dosing Start Date: 10/11/23 Status: Ordered Start: 08-10-2023 take 1 tablet by manish once daily at bedtime traZODONE 50 mg Tab 50 mg = 1 tab(s), Oral, Once a day (at bedtime), # 30 tab(s), Refills(s) 0, Pharmacy: [facility] #[id number], 167, cm, 08/10/23 14:24:00 EST, Height/Length Dosing, 151.4, kg, 08/10/23 14:24:00 EST, Weight Dosing Start Date: 08/10/23 Status: Ordered Start: 10-20-2020 take 2 tablets by mo [facility] once daily at bedtime as needed traZODONE 150 mg Tab 300 mg = 2 tab(s), Oral, Once a day (at bedtime), PRN Insomnia, # 180 tab(s), Refills(s) 1, [facility], 170, cm, 10/13/20 9:06:00 EDT, Height/Length Dosing, 153.3, kg, 10/13/20 9:06:00 EDT, Weight Dosing Start Date: 10/20/20 Status: Ordered take 1 tablet by manish th once daily as needed for sleep traZODone (DESYREL) 150 MG tablet Take 1 tablet by mouth nightly as needed for Sleep 0 Active take 2 tablets by mo sch once daily traZODone (DESYREL) 150 MG tablet Take 300 mg by mouth nightly 0 Active varenicline 1 mg oral tablet (16 sources) Partial Cholinergic Nicotinic Agonist Start: 10-18-2022 take 1 tablet by mouth twice daily after mealtime varenicline 1 mg oral tablet 1 mg = 1 tab(s), Oral, BID, after meals, # 60 tab(s), Refills(s) 4, [facility][id number], 167.5, cm, 10/18/22 13:30:00 EDT, Height/Length Dosing, 147, kg, 10/18/22 13:30:00 EDT, Weight Dosing Start Date: 10/18/22 Status: Ordered Start: 10-18-2022 take 1 tablet by manish once daily, then take 1 tablet by mouth twice daily, then take 2 tablets by mouth twice daily varenicline 0.5 mg oral tablet See Instructions, 1 po daily x3 days then 1 po BID x4 days. Follow this with 1 mg BID prescription varenicline, # 11 tab(s), Refills(s) 0, [facility]: [facility] #[id number], 167.5, cm, 10/18/22 13:30:00 EDT, Height/Length Dosing, 147, kg, 10/18/22 13:30:00 EDT, Weight Dosing Start Date: 10/18/22 Status: Ordered Completed/Discontinued Medications Medication Drug Class(es) Dates Sig (Normalized) Sig (Original) 60 actuat budesonide 0.08 mg/actuat / formoterol fumarate 0.0045 mg/actuat metered dose inhaler (20 sources) Corticosteroid, beta2-Adrenergic Agonist Start: 09-11-2019 End: 03-17-2020 take 2 puff(s) by inhalation twice daily budesonide-formoter ol (SYMBICORT) 80-4.5 MCG/ACT AERO Inhale 2 puffs into the lungs 2 times daily 1 Inhaler 3 09/11/2019 03/17/2020 Discontinued (LIST CLEANUP) take 2 puff(s) by in halation twice daily budesonide-formoterol (SYMBICORT) 160-4. 5 MCG/ACT AERO Inhale 2 puffs into the lungs 2 times daily 0 Active iohexol (OMNIPAQUE 240) injection 20 mL (1 source) Start: 02-07-2020 End: 02-07-2020 iohexol (OMNIPAQUE 240) injection 20 mL iopamidol (ISOVUE-370) 76 % injection 75 mL (1 source) Start: 02-07-2020 End: 02-07-2020 iopamidol (ISOVUE-370) 76 % injection 75 mL ipratropium bromide 0.2 mg/ml inhalation solution (1 source) Anticholinergic Start: 10-14-2022 End: 10-14-2022 ipratropium (ATROVENT) 0.02 % nebulizer solution 0.5 mg Nebulizer Machine (20 sources) Start: 10-11-2023 Nebulizer Mach ine Nebulizer Machine, See Instructions, 1 EA, 0, Nebulizer Machine, [facility] #[id number], Supply, 168, cm, 10/11/23 14:32:00 EDT, Height/Length Dosing, 160.2, kg, 10/11/23 14:32:00 EDT, Weight Dosing Start Date: 10/11/23 Status: Ordered Start: 10-02-2019 Nebulizer Mach ine Nebulizer Machine, See Instructions, 1 EA, 0, Nebulizer Machine, [facility] #16, Supply, 170, cm, 10/02/19 13:41:00 EDT, Height/Length Measured, 156, kg, 10/02/19 13:41:00 EDT, Weight Measured Start Date: 10/02/19 Status: Ordered Nebulizer Tubing and Mouthpiece Kit (20 sources) Start: 10-11-2023 Nebulizer Tubi ng and Mouthpiece Kit Nebulizer Tubing and Mouthpiece Kit, See Instructions, 1 kit(s), 0, Nebulizer Tubing and Mouthpiece Kit, [facility] #[id number], Supply, 168, cm, 10/11/23 14:32:00 EDT, Height/Length Dosing, 160.2, kg, 10/11/23 14:32:00 EDT, Weight Dosing Start Date: 10/11/23 Status: Ordered Start: 10-02-2019 Nebulizer Tubi ng and Mouthpiece Kit Nebulizer Tubing and Mouthpiece Kit, See Instructions, 1 kit(s), 0, Nebulizer Tubing and Mouthpiece Kit, [employer] #[id number], Supply, 170, cm, 10/02/19 13:41:00 EDT, Height/Length Measured, 156, kg, 10/02/19 13:41:00 EDT, Weight Measured Start Date: 10/02/19 Status: Ordered polyethylene glycol 3350 529559 mg / potassium chloride 2970 mg / sodium bicarbonate 6740 mg / sodium chloride 5860 mg / sodium sulfate 97898 mg powder for oral solution (1 source) Osmotic Laxative Start: 03-17-2020 End: 03-17-2020 polyethylene glycol (GoLYTELY) solution 4,000 mL Start: 03-17-2020 End: 03-17-2020 polyethylene glycol (GoLYTEL Y) solution 4,000 mL potassium chloride 20 meq extended release oral tablet (20 sources) Start: 08-14-2023 take 1 tablet by mouth once daily as needed potassium chloride 20 mEq ER Tab 20 mEq = 1 tab(s), Oral, Daily, PRN PRN, Take with Lasix, # 30 tab(s), Refills(s) 5, Pharmacy: [facility] #[id number], 167, cm, 08/10/23 14:24:00 EST, Height/Length Dosing, 151.4, kg, 08/10/23 14:24:00 EST, Weight Dosing Start Date: 08/14/23 Status: Ordered Start: 12-12-2022 potassium chlo ride (KLOR-CON M) 20 MEQ extended release tablet Start: 06-15-2021 take 1 tablet by manish th once daily as needed potassium chloride 20 mEq ER Tab 20 mEq = 1 tab(s), Oral, Daily, PRN PRN, Take with Lasix, # 30 tab(s), Refills(s) 5, [facility]: [facility] #[id number], 167, cm, 11/26/22 13:06:00 EDT, Height/Length Dosing, 140, kg, 11/26/22 13:06:00 EDT, Weight Dosing Start Date: 01/10/23 Status: Ordered predniSONE 20 mg oral tablet (11 sources) Start: 04-26-2023 predniSONE 20 mg Tab 20 mg = 1 tab(s), Oral, As Directed, Take three tabs by mouth for one day, then two tabs for one day, then one tab for one day, # 6 tab(s), Refills(s) 0, [facility]acy: [facility] #[id number], 167, cm, 04/26/23 11:10:00 EDT, Height/Length Dosing, 141.8, kg, 04/26/23 11:10:00 EDT, Weight Dosing Start Date: 04/26/23 Status: Ordered Start: 09-16-2022 predniSONE 10 mg Tab See Instructions, take 6 tabs daily x 3days, then 5 tabs daily x 3 days, then 4 tabs daily x 3 days, then 3 tabs daily x 3 days, then 2 tabs daily x 3 days, then 1 tabs daily x 3 days., Refills(s) 0 Start Date: 09/16/22 Status: Ordered Start: 09-14-2022 take 60 mg by mouth once daily, then take 40 mg by mouth once daily, then take 20 mg by mouth once daily, then take 10 mg by mouth once daily Prednisone Active 10 MG PO Daily 40 September 14, 2022 12:00am take 60mg daily for 3 days, then 40mg daily for 3 days, then 20mg daily for 3 days, then 10mg daily for 3 days and stop. Ventolin HFA 90 mcg/inh Aerosol (3 sources) Start: 04-13-2022 take 1 dose by inhalation four times daily Ventolin HFA 90 mcg/inh Aerosol 2 puff(s), Inhalation, QID Cough, 1 EA, Refill(s) 1, [facility] #[id number], 163, cm, 12/30/21 11:09:00 EDT, Height/Length Dosing, 154, kg, 12/30/21 11:09:00 EDT, Weight Dosing Start Date: 04/13/22 Status: Ordered Start: 09-23-2020 take 2 puff(s) by in halation four times daily Ventolin HFA 90 mcg/inh Aerosol 2 puff(s), Inhalation, QID Cough, 1 EA, Refill(s) 0, [facility], 170, cm, 09/22/20 10:15:00 EDT, Height/Length Dosing, 155.5, kg, 09/22/20 10:15:00 EDT, Weight Dosing Start Date: 09/23/20 Status: Ordered Ventolin HFA 90 mcg/inh Aerosol-Adpt (20 sources) Start: 10-01-2022 take 1 dose by inhalation every six hours Ventolin HFA 90 mcg/inh Aerosol-Adpt 2 puff(s), Inhalation, q6hr for wheezing, 1 EA, Refill(s) 1, [facility] #[id number], 167, cm, 09/29/22 11:37:00 EDT, Height/Length Dosing, 149.2, kg, 09/29/22 11:37:00 EDT, Weight Dosing Start Date: 10/01/22 Status: Ordered Start: 07-23-2022 take 2 puff(s) by in halation every six hours for wheezing Ventolin HFA 90 mcg/inh Aerosol-Adpt 2 puff(s), Inhalation, q6hr for wheezing, 18 gram, Refill(s) 1, [facility] #[id number], 163, cm, 12/30/21 11:09:00 EDT, Height/Length Dosing, 154, kg, 12/30/21 11:09:00 EDT, Weight Dosing Start Date: 07/23/22 Status: Ordered Vitamin D3 5000 intl units oral capsule (17 sources) Start: 10-14-2022 take 1 capsule by mouth once daily at mealtime Vitamin D3 5000 intl units oral capsule 5,000 International_Unit = 1 cap(s), Oral, Daily, with food, # 100 cap(s), Refills(s) 1, Pharmacy: [facility] #[id number], 170, cm, 10/13/22 9:06:00 EDT, Height/Length Dosing, 149.2, kg, 09/29/22 11:37:00 EDT, Weight Dosing Start Date: 10/14/22 Status: Ordered Problems Active Problems Problem Classification Problem Date Documented Da te Episodic/Chronic Alcohol-related disorders (20 sources) Alcohol abuse; Translations: [Alcohol abuse, uncomplicated] Onset: 3 Chronic Asthma (20 sources) Uncomplicated moderate persistent asthma; Translations: [Moderate persistent asthma, uncomplicated] Onset: 2 Chronic Benign neoplasm of uterus (20 sources) Uterine leiomyoma 03-04-2020 Episodic Chronic obstructive pulmonary disease and bronchiectasis (20 sources) Acute exacerbation of chronic obstructive airways disease; Translations: [Chronic obstructive pulmonary disease with (acute) exacerbation] Onset: 3 09-10-2022 Chronic Congestive heart failure; nonhypertensive (20 sources) Right ventricular failure; Translations: [Right heart failure, unspecified] Onset: 3 Chronic Diabetes mellitus with complications (20 sources) Complication due to diabetes mellitus; Translations: [Type 2 diabetes mellitus with other specified complication] Onset: 2 Chronic Diabetes mellitus without complication (1 source) Hyperglycemia; Translations: [Elevated blood sugar] Episodic Disorders of lipid metabolism (20 sources) Hyperlipidemia; Translations: [Mixed hyperlipidemia] Onset: 3 03-12-2019 Chronic Esophageal disorders (20 sources) Gastroesophageal reflux disease; Translations: [Gastroesophageal reflux disease without esophagitis] Onset: 3 09-22-2020 Chronic Essential hypertension (20 sources) Essential hypertension; Translations: [Essential (primary) hypertension] Onset: 2 Chronic Fluid and electrolyte disorders (20 sources) Hypokalemia; Translations: [Hypokalemia] Onset: 3 Episodic Gastrointestinal hemorrhage (1 source) Hematochezia 07-28-2021 Episodic Immunizations and screening for infectious disease (1 source) Vaccination given; Translations: [Encounter for immunization] Onset: 3 Episodic Malaise and fatigue (1 source) Fatigue; Translations: [Other fatigue] Episodic Miscellaneous mental health disorders (20 sources) Chronic insomnia; Translations: [Psychophysiologic insomnia] Onset: 3 01-16-2019 Chronic Mood disorders (20 sources) Severe major depression, single episode, without psychotic features; Translations: [Major depressive disorder, single episode, severe without psychotic features] Onset: 2 Chronic Nonspecific chest pain (5 sources) Chest pain; Translations: [Chest pain, unspecified] 09-10-2022 Episodic Nutritional deficiencies (20 sources) Vitamin D deficiency; Translations: [Decreased vitamin D] 01-16-2019 Chronic Osteoarthritis (20 sources) Osteoarthritis; Translations: [Unspecified osteoarthritis, unspecified site] Onset: 8 04-26-2018 Chronic Osteoarthritis (9 sources) Osteoarthritis of left knee joint; Translations: [Degenerative arthritis of left knee] Onset: 8 03-16-2018 Other aftercare (4 sources) Long-term current use of drug therapy; Translations: [Other retirement (current) drug therapy] Onset: 3 Episodic Other and unspecified benign neoplasm (20 sources) Tubular adenoma of colon 03-20-2020 Episodic Other and unspecified benign neoplasm (14 sources) Polyp of colon; Translations: [Polyp of colon] Onset: 3 Episodic Other and unspecified benign neoplasm (8 sources) History of polyp of colon; Translations: [Personal history of colonic polyps] Onset: 4 Episodic Other connective tissue disease (20 sources) Artificial knee joint present; Translations: [Presence of left artificial knee joint] Onset: 8 03-16-2018 Chronic Other connective tissue disease (1 source) History of total knee arthroplasty 01-16-2019 Chronic Other connective tissue disease (1 source) Pain in left lower limb; Translations: [Pain in left leg] Onset: 3 Episodic Other connective tissue disease (1 source) Pain in right lower limb; Translations: [Pain in right leg] Onset: 3 Episodic Other connective tissue disease (17 sources) Weakness of left hand; Translations: [Other symptoms and signs involving the musculoskeletal system] Episodic Other connective tissue disease (1 source) Paraparesis; Translations: [Other symptoms and signs involving the musculoskeletal system] Episodic Other female genital disorders (1 source) Hypertrophy of uterus; Translations: [Hypertrophy of uterus] Episodic Other female genital disorders (1 source) Enlarged uterus 02-13-2020 Episodic Other hereditary and degenerative nervous system conditions (20 sources) Restless legs 01-16-2019 Chronic Other inflammatory condition of skin (20 sources) Granuloma annulare 05-14-2021 Episodic Other liver diseases (20 sources) Steatosis of liver; Translations: [Fatty (change of) liver, not elsewhere classified] Onset: 3 02-13-2020 Chronic Other liver diseases (20 sources) Elevated liver enzymes level 09-06-2022 Episodic Other liver diseases (1 source) Increased aspartate transaminase level; Translations: [Elevation of levels of liver transaminase levels] Onset: 3 Episodic Other liver diseases (9 sources) Large liver; Translations: [Hepatomegaly, not elsewhere classified] Onset: 4 Episodic Other lower respiratory disease (7 sources) Dyspnea; Translations: [Shortness of breath] Episodic Other lower respiratory disease (2 sources) Shortness of breath; Translations: [Shortness of breath] 09-10-2022 Episodic Other lower respiratory disease (1 source) Dyspnea, unspecified; Translations: [Dyspnea, unspecified] Onset: 4 Episodic Other nervous system disorders (16 sources) Neurogenic claudication 10-18-2022 Episodic Other non-traumatic joint disorders (3 sources) Pain in right hip joint; Translations: [Pain in right hip] Onset: 4 Episodic Other non-traumatic joint disorders (14 sources) Hip pain 08-10-2023 Episodic Other non-traumatic joint disorders (3 sources) Pain in right hip; Translations: [Pain in right hip] Onset: 4 Episodic Other nutritional; endocrine; and metabolic disorders (20 sources) Morbid obesity; Translations: [Morbid (severe) obesity due to excess calories] Onset: 2 Chronic Other nutritional; endocrine; and metabolic disorders (20 sources) Body mass index 40+ - severely obese; Translations: [Body mass index (BMI) 50.0-59.9, adult] Onset: 2 Chronic Other nutritional; endocrine; and metabolic disorders (16 sources) Severe obesity 11-25-2022 Chronic Other nutritional; endocrine; and metabolic disorders (1 source) Obesity; Translations: [Other obesity due to excess calories] Chronic Other nutritional; endocrine; and metabolic disorders (2 sources) Morbid (severe) obesity due to excess calories; Translations: [Morbid (severe) obesity due to excess calories] Onset: 4 Chronic Other nutritional; endocrine; and metabolic disorders (2 sources) Body mass index (BMI) 50.0-59.9, adult; Translations: [Body mass index (BMI) 50.0-59.9, adult] Onset: 4 Chronic Other screening for suspected conditions (not mental disorders or infectious disease) (10 sources) Screening for malignant neoplasm of colon done; Translations: [Encounter for screening for malignant neoplasm of colon] Onset: 3 Episodic Other skin disorders (20 sources) Multiple skin tags 05-14-2021 Episodic Other skin disorders (20 sources) Senile hyperkeratosis 08-08-2019 Episodic Residual codes; unclassified (20 sources) Obstructive sleep apnea syndrome; Translations: [Obstructive sleep apnea (adult) (pediatric)] Onset: 3 Chronic Residual codes; unclassified (2 sources) Obstructive sleep apnea (adult) (pediatric); Translations: [Obstructive sleep apnea (adult) (pediatric)] Onset: 4 Chronic Residual codes; unclassified (3 sources) Preoperative state; Translations: [Pre-operative clearance] Episodic Residual codes; unclassified (2 sources) Tobacco user; Translations: [Tobacco use] Episodic Residual codes; unclassified (20 sources) Edema of lower extremity 05-07-2019 Episodic Residual codes; unclassified (1 source) Family history of malignant neoplasm of liver 01-31-2020 Episodic Residual codes; unclassified (1 source) FH: Stomach cancer 01-31-2020 Episodic Residual codes; unclassified (8 sources) Localized edema; Translations: [Localized edema] Onset: 3 Episodic Residual codes; unclassified (1 source) Bilateral lower limb edema; Translations: [Localized edema] Episodic Residual codes; unclassified (3 sources) Current drinker; Translations: [Alcohol use, unspecified, uncomplicated] Onset: 3 Episodic Residual codes; unclassified (1 source) Localized edema; Translations: [Localized edema] Onset: 4 Episodic Respiratory failure; insufficiency; arrest (adult) (4 sources) Acute respiratory failure; Translations: [Acute respiratory failure with hypoxia] 09-10-2022 Episodic Respiratory failure; insufficiency; arrest (adult) (1 source) Respiratory failure; insufficiency; arrest (adult); Translations: [Acute respiratory failure with hypoxia] Onset: 3 Spondylosis; intervertebral disc disorders; other back problems (20 sources) Sciatica; Translations: [Sciatica, unspecified side] Onset: 3 Episodic Substance-related disorders (20 sources) Nicotine dependence; Translations: [Nicotine dependence, cigarettes, uncomplicated] Onset: 3 Chronic Substance-related disorders (6 sources) Marijuana user 10-31-2023 Episodic Unclassified (14 sources) Cancer cervix screening status 08-19-2022 Unclassified (20 sources) Patient encounter status 08-19-2022 Unclassified (16 sources) Finding relating to alcohol drinking behavior 10-18-2022 Unclassified (6 sources) Liver function test increased 10-31-2023 Past or Other Problems Problem Classification Problem Date Documented Da te Episodic/Chronic Abdominal pain (20 sources) Right lower quadrant pain; Translations: [Nonspecific abdominal pain] Onset: 03-17-2020 03-17-2020 Episodic Diseases of mouth; excluding dental (20 sources) Leukedema of tongue; Translations: [Other disturbances of oral epithelium, including tongue] Onset: 10-08-2020 10-08-2020 Episodic Other upper respiratory disease (20 sources) Hoarse; Translations: [Dysphonia] Onset: 10-08-2020 10-08-2020 Episodic Syncope (20 sources) Syncope and collapse; Translations: [Syncope and collapse] Onset: 06-18-2018 06-18-2018 Episodic Results Test Name Value Interpretation Reference Range Facil ity Heart and Vascular Office/Cl inic Noteon 01-28-2024 Heart and Vascular Office/Clinic Note [facility] and V[facility] Office/Clinic Note Chief Complaint 6 week F/U History of Present Illness Carmen Bledsoe is a 63-year-old female patient who presents for a follow up after evaluation for possible congestive heart failure. The patient has undergone a stress test in the past but not recently. She agrees not to undergo a stress test as she is doing well and to do a 6-month follow-up. The patient is experiencing severe hip issues. She had no further questions. The patient is currently in her 61st day of abstinence from alcohol and has reported an overall improvement in her condition. She has not engaged in any rehabilitation programs. Review of Systems PHQ Score Initial Depression Screen Score: 0 SCORE Constitutional: no fever, no sweats, no weakness Skin: no rash, no lesions, no bruising/petechiae ENMT: no sore throat, no congestion, no hoarseness Respiratory: no shortness of breath, no cough, no orthopnea, no wheezing Cardiovascular: no chest pain, no palpitations, no edema Gastrointestinal: no nausea, no vomiting, no diarrhea, no GI bleeding Genitourinary: no anuria/oliguria no hematuria Musculoskeletal: no back pain, no trauma Neurologic: no headache, no dizziness, no numbness, no weakness Psychiatric: no sleeping problems, no irritability, no anxiety/depression. Heme/Lymph: no bleeding tendency, no bruising tendency Allergy/Immunologic: no recurrent infections, no impaired immunity Additional ROS info: Except as noted in the above Review of Systems and in the History of Present Illness all other systems have been reviewed and are negative or noncontributory Physical Exam Vitals & Measurements HR: 86(Peripheral) BP: 124/80 SpO2: 94% HT: 66 in HT: 168 cm WT: 139.0 kg WT: 305.8 lb BMI: 49.25 General: alert, no acute distress Skin: warm, dry intact Head: atraumatic, normocephalic Neck: trachea midline, no JVD, no bruit Eye: normal conjunctiva, sclera clear ENMT: oral mucosa moist Cardiovascular: regular rate and rhythm, no murmur, normal peripheral perfusion Respiratory: lungs CTA, respirations non labored Chest wall: no deformity. Gastrointestinal: soft, non-distended, no tenderness, no guarding. Back: no tenderness, normal ROM, normal alignment. Extremities: no edema, no deformity, no trauma Neurological: oriented x 4, LOC appropriate for age, sensation equal & normal bilaterally, speech normal Psychiatric: cooperative, affect appropriate for age, normal judgement, normal psychiatric thoughts. Assessment/Plan Follow-up for possible congestive heart failure. The patient's laboratory studies suggest she is not in heart failure. Given her overall well-being, a stress test is not deemed necessary at this time. Follow up. The patient is scheduled for a follow-up visit in 6 months. ATTESTATION: Documentation services were performed after patient or guardian consented to allow [employer] to record this visit. BUD military logistics specialist and provider reviewed before signing. BUD: Tyra Manatad/pasted by: Josse Nava Portions of this record may have been created with voice recognition artificial intelligence software, specifically [employer], [employer] and or [employer]. Substitutions may have occurred due to the inherent limitations of voice recognition and artificial intelligence software. Follow-up No qualifying data available Problem List/Past Medical History Ongoing Alcohol problem drinking Benign hypertension Bilateral hip pain Bilateral leg edema BMI 50.0-59.9, adult Chronic insomnia Cigarette smoker Class 3 severe obesity due to excess calories with serious comorbidity in adult Elevated LFTs Elevated liver transaminase level Encounter for medication management Fatty liver GA (granuloma annulare) GERD (gastroesophageal reflux disease) Heart failure with preserved ejection fraction Hepatomegaly History of alcohol abuse History of colon polyps Hypokalemia Left hand weakness Low vitamin D level Marijuana user Medication management Mixed hyperlipidemia Moderate persistent asthma Neurogenic claudication Obstructive sleep apnea Restless leg syndrome Right hip pain Sciatica Seborrheic keratoses Severe major depression Skin tags, multiple acquired Smoker Type 2 diabetes mellitus with morbid obesity Uterine fibroid Historical COPD exacerbation Tubular adenoma of colon Procedure/Surgical History Colonoscopy (03/17/2020), Eye/lens implant bilat, Knee replacement, L foot bunion/reconstruction . Medications Abilify 2 mg Tab, 2 mg= 1 tab(s), Oral, Daily, 3 refills Advair Diskus 100 mcg-50 mcg inhalation powder, See Instructions albuterol 0.083% Inh Rochelle 3 mL, 2.5 mg= 3 mL, Inhalation, q6hr, PRN, 1 refills Alcohol wipes, See Instructions, 3 refills Crestor 40 mg Tab, 40 mg= 1 tab(s), Oral, Daily, 3 refills FLUoxetine 20 mg Cap, 40 mg= 2 cap(s), Oral, Daily, 1 refills furosemide 4 (more content not included)... Normal [facility] Comment on above: Result Comment: Elec tronically Signed By: Adam SAMPSON, Alirio Hooper\.br\Date and Time Signed: 01/28/24 09:35 EDT\.br\Electronically Co-Signed By: Josse Nava\.br\Date and Time Co-Signed: 12/06/23 16:45 EDT Coding Summary.on 12-28-2023 Coding Summary. YAHRLrbf83MJw5cXu+PG h lYWQ+UK5OHZMfX13clEJw gH8tN5NQSPyADrbfVTWOM BsCEfOyjgVrRA5liDNjKU Ju IC8+WD3nHYGoYqechUNad 3M5bYE0G70lvy6nUGmfpM V7LQAuRnQvdbfsg0ormUq 6IDcuNmluOyBt UPCneK88AYZ3aW74Gw11r OAqmZLcf9zujRn6XgOrVI TnTSP3hWbbCHpjs4HaTTN mE57txFNbp2K0 FGVwiNipaZYxVvWetHO4x K5hZKewgzsmx2jnooqcQn x8wm30jLZsd6F6pCK9C9A viwT1CBVojTYk KalbvJYWaO9ehaudf0ogw dqhBdOwAXKbZLt3NGk4PF DpaQshRhJsTV30BFW0XCL zxqAiU5MvWZUo tGxcTyI8i0I1Qt0HC3AHD khrC7WGECTWSDzfcWI+PC 23pc07H5LhPvovZkg5CXK qAEG2aUJ6mP6u IPPbMMatm6U1gQB2C6Jwc cNysi9jg9luPOMfONroU4 1qyOOos6N6FTOuqPN5MOJ dpFsyFlRixQ26 Oyc+XUFbwVitt6AiGwfrz 9zpp0beyNa5RrttMKAehk LbhYtmGIM4f3NiXq1ySWO fsOL9rYL1zM0f NlVlYdV6RXtvL260RdJud BXyAygyF11oS0VpaSG+PH EzEbu3UAPevVhzYW7bX9X hZGRpbmctbGVm xGheIK9eLLVtdwjzIQIpz T7fACEeR7g5JcSyGuP8UI mbM7VlKRRrqaomMa02gB8 fVvKgCzF5RSii G2DjkuV5VRLaaCPsWDouY WB5V52cw7I7JJIcPSEiVV T8wDF5yD2mdZehzbkymHB mdDsgdmVydGlj JAksIXadJ914XSIxbRcnI kNvZGluZyBEYXRlOiAgMD YvMjYvMjAyNDwvdGQ+PHR yNLZ5sInjYDVk gNOcFYekHu4cpIuynYcvP Q9mZANklctxCNGoyA0iPD ZlyEHcrZmrYN7jBXOtjxp vc137XhDoZBB5 EMEbkBZoX6JvdM1iHxFgD BSiHVNbI1JbtPMqROiyK3 40KYniOiO0ICYpsxGaZ8K sLWFsaWduOiB0 i5O1Op1Qn0AqywlbK7Lph EUmQxDjDgdpXSc6U0QcUu wvdHI+WO19QYFsXQ58NCb 9HTB4nZgxTBtf LFQiJ3ZfdM7qNqKgEQYtW GRkOyc+PHRhYmxlIHdpZH RoPScxMDAlJyBzdHlsZT0 eCo9gOKWoILSg lYgytYIgPgGyd5biQCXlT CgfGF0hsPhaV9VehNE1QY Rvf0r6Rv48P68xF9BzqZR +EEKxeTJ5kZA2 aL7bEhVxOkX9OXxgU212W cKwnBLoHccir2wuh4rklT b5YzC2DKNovkYzyTesNIW 1g9KkGq79Q37y IHdpZHRoPSIxNSUiIHZhb Rbwhq0gtJ6aCe6+PGNvbC O8pYO5bA2mKeBkGkC1JVq hS788DrXisEXi Eegtj1hdo5pvyGc9ClLrB ELwgqAwxHloBPX5p9YaDx 72A1GkwNfyt7WhWvz0by5 0jEAmh4E0uJK2 H5PkXLGbwevtuVSpkDtjP K7fHXFxfzccCNGorV2wCW VoN4k8IfTrQhL9WEovJ2K qdqK0ATSopWFs MYEonWYAvB8yyojxf4xrs opwPmPtIQCdUEc5OXk9WS DqgMpyXsNlOJE8VcP8XFU 7wUKrhI3euVdg udmurP3cHem+SKY2iLWti FUEPT7aZmruwSI+PHRkIH Y3zGawIEjyBFDrbO5tWAN pN7v9YhGcWgX9 SPxqN0ZxlsT7EOCbzCWbD LAhfUIBgB1ovvfia0izem pyQsBqJEJlSEp8WQl6HXU saWduOiBsZWZ0 DiB7AZD2rVEjyB4ldEnjs wdukR5sHso+QmlydGggRG N9ZGi8Q0YvTqd0HAYghKq bIF5lyRGvDKph Sl2hfVhnvUgiKC5sCVFmm cznn934JtDkb9yoOZHcqP OzQWlyLQV5I55lf4N7FDR lNVOnDXQ5uDV5 tK1ynHilyrjujELcyAjpg pYbmSudLTziTHtwE878YP UhfEkgVlBkDHx8R6OtIcr 1NUJjiJlfOL5p uSEfDDiuVe3heShexCovR S1oKYRwxljcr099LoMql9 chGHZnrJZgMCgfXZW8S70 nf4F1VEFmGVVy TXC1zFR9aP4kqIxqovkqa GVmdDsgdmVydGljYWwtYW brT340RJIfrUvcWkYbsCg 8H7EzDai5MMOw jSghBN8kpBLeHApbQn6mv ErwoCriLZ9dALSfgclzq0 97VlSnp2vuMDSkdUCrGJq uVGL4B68fm0N8 PHPuVLEsXXA6cQW4jJ1du GlnbjogbGVmdDsgdmVydG hyZIphJEhqI420VHOpePe nPlBhdGllbnQg FKswCDa4T6BoPvllzJX+P R69JOCrDE56zBBppMVta8 tlkFw3QlEvQUMyIFF0sQj sNXikh4GcIAYn U76rmUNnp6S7DHAnmQpjt JFmKsWybJC7bN2lPZuvnt ihv8ovvsslGzktf5aoff4 5xR48B74mVBtg ZHRoPSIzMCUiIHZhbGlnb y6apL6yVi0+AQKswZD0bY C9kL3mDSHdWvR3LQpxB17 9InRvcCIvPjxj l8omk2qmaZj6FjH2ZOBwy nZqyFcvFUM0n9ItJt37R5 9sIHdpZHRoPSIyMCUiIHZ ikLychf8okJ4d Ii8+USFgvOE0qSL4eR2hY lSzUxZ9RQtmQ439NgElhE LpQybxJ22yT1ZofVQ+PHR zSls3FVNpwIuo IH6kuHVhZJmyJf7cGCN9V pJnQhHwLHcdM3LvLGBvpt pnisrtiHH3YXPcYSZwxS2 2Jk0hxBoiCXXy cVCBaV7kgvwll1mtkwdwO cXyLLXuTHk9ZWb5XJCtfP dlTsLvYYA5IeP2JLO5xFP axL3ahDypvdxh mB9sC5YkMLFsqegpZo27y P6kQyKfRvG1WWoeVmo+U0 lEMnUmPItXClRQLZ52MT2 0rIRka8P0iOO3 U7LhIHUmsovyagciuAM0O QBiNGHukE37cNUwBJtaGo 3rk4G3s016URFqPYSycA4 6Jp8kfCoeOLQs uEIRnK2wrkvyu0oeehjrK iQtGTCsQDf6XLy6HSNkbK deIpHdDLW2XlM3FPE6rKG yrB6snQrhrzfr bS6nTwl+MFPfRJDaXGv2J zwvdGQ+HTAiHLU1eZqtWE cwEVSjmN7nUYEwJ2e3LkW pHyX0MWznK2Yl LUUiyxkiKr67gO5cLwEjD iY2MIctL0GiluS0PSFlkV YvPLakFIK9U74kw2D2XRA wQTLbWXU5jDW3 hF3naPimpdkymWVfmKttb cWluNphMTmzTQcaM277TT RvcDsnPjYxIFllYXJzPC9 0ED21cUEem6M6 vTQ7B3CoKSAyhtmusvdck SU2NNLkLMXakS84iSIjYQ icDw3xf7E2r432FOKaAPA plC04Rf1gvNkw PDSjhCYUaS4nqeqip0afq otmGlBvXZCrAVh0DSc6ZA EzaPxeGhQyMSI8OaQ7TDK 3dJGuwG9moCfk gnmqoY1mDyq+RmVtYWxlP I68MJ97gEXek2J2yZV9G4 HpXJNgzpbaczycfQX4SFH nBDQkaU68fQNk UMwyLg1en0N8c846FJLbH AYggK19Uu3qrUaxRONlgI NFsX6iemjpp1gbnwkvVbB uAVAkQOr7HQo0 JFPxxTlgQvJqOQX9AeZ3C ZX0aIOasK3gqBajzidngU 9wOyc+Y0P3kFN3jLXtqZb vdGQ+FX63ii76 G3WuEzjoEkn3EUCgBHC7f CJ1vO7nALWaMEwnw2K3jV N2R7NhstCkja0mb5oeGBX pVZpyB54heGBb r3Y1STPhzJQ7VODdwEflX bHvnI10Muc+PGNvbGdyb3 AtDllzk6mks7yvpRb6OtB wJSIgdmFsaWdu KRZ5c5IvTe76W53sLPpmK HRoPSIzMCUiIHZhbGlnbj 6ysK9nHb6+JTNwjCI0yOJ 7hN3bMkSmJqZ9 URgrU915LoJzmRVfSjhsw 4zdy1skfBs1ZtDzRMHvxa UpoPrtFCY9f0SbNl42H6S isKjjk1QaInq2 uv36jPKqx5J7uJA1F4GdX QDnyjtxlELloGfoOU0dPD DdhuqaVCZmiW8jIIEkY7f 0OsZrWxV1KSav P9JowaI8OFUdmFLlROXhk MWLzE2ytynkz4ejdaqmBy KfLQViTNk7UIx3UCGuzFi lAsCkHGI9EmV4 SIU3xWZthG2icXdmtwfiy G9wOyc+SUw3z0zmsATwQZ 4ksLA1EJ09OC68xGPdp5E 3bKG1M7TfTWIb rfyitbnzcGN7IZZiLDVcp I27Ep7mvWkiHp8tRSEvQK C7IFOoqVIeO8BhvZ3bIkB aVSTsZJSjG0Dv eVAwZSqpK498TBsbRbN2Q RSndyZkC3IiSMEwyKipDz L7a4T4Af1NIC53ZZ40RJ2 5kYAke7H5zJF7 F7QfCCDbilvxwujxrEA5U QRzGSIjwL74Xu8tcYqeCc 7pRTQdCGK2MYKqpTGsA0X awF6fKeJhBPVr FBQxX5OxpXNuQKwsI861E ZlsKaQ4QQLxkyHxG8PrDV SekWptDcL6o7B6Ux4SXv6 2ON36FR55zYBo g1M8mWT3P6PsQURdmhneo rdqdOX2NOBsQDErwY00Ev 7uxXxuWd4tPVCcLXK0FSQ dzQMfY0SrgK2l SsPwYBBeGGJdP0JtoZSbV FazE533ILioTvY6WJGgus VxQ2KcCCQcfZymUfB9d6N 1Le3LZJdwvqu9 N2OnGmcmxLP+SI63JPRyK K57pPHnbVZoy3fklGe6Hj TbWGPxTWT8mIvrSMktg4F oDOCyR06ggDPh p2T5RZSztOeho (more content not included)... Normal [facility] Surgical Pathology Reporton 12-28-2023 Surgical Pathology Report [facility] [address] [place] [address]- Surgical Pathology Report Collected Date/Time: 12/23/2023 12:39 EDT Pathologist: Mariusz Robins MD Received Date/Time: 12/26/2023 07:36 EDT Marjan SAMPSON, Walker Phillip MD, Walker Pritchett 07 Surgical Pathology Report - 12/28/2023 09:37 EDT - Auth (Verified) Final Diagnosis A: POLYP, ASCENDING COLON, POLYPECTOMY: - Tubular adenoma B: POLYP, TRANSVERSE COLON, POLYPECTOMY: - Fragments of tubulovillous adenoma(s) (Electronic Signature) Shahram. Julienne MD 12/28/2023 09:37 Clinical Information Elevated LFTs, history of alcohol abuse, history of colon polyps, smoker Pre-Op Diagnosis: Elevated LFTs, history of alcohol abuse, history of colon polyps, smoker Procedure: Colonoscopy Post-Op Diagnosis: 1. Redundant colon 2. 2.5 cm semipedunculated polyp in the transverse colon, resected using EMR technique, injected 4 ml of Everlift resected using hot snare. Once clip was placed to prevent bleeding at end of the procedure. Specimen(s) Received A: Ascending colon polyp B: Transverse colon polyp Gross Description A: Received in formalin labeled with patient name, number, and ascending colon polyp are multiple fragments of miller tissue ranging from 0.2 cm up to 0.5 cm in greatest dimension measuring in aggregate 0.8 x 0.5 x 0.1 cm. The specimen is entirely submitted in one cassette. B: Received in formalin labeled with patient name, number, and transverse colon polyp are multiple fragments of miller tissue measuring in aggregate 2.5 x 0.8 x 0.1 cm. Also received is a larger polypoid tissue measuring 1.4 x 1.1 x 1 cm. The apparent point of attachment is inked blue. The specimen is trisected and the specimen is entirely submitted in a total of two cassettes: B1 - Multiple fragments B2 - Larger polyp (DC) DC:MCA Microscopic Description Microscopic examination performed unless gross only specified. Normal [facility] Comment on above: Performed By: #### [id number] #### [facility] [address] [place] [address] Consenton 12-26-2023 Consent [id number]# 1.00TIFF Normal [facility] Discharge Instructionson Discharge Instructions [id number]# 1.00TIFF Normal [facility] Main OR Intraoperative Recor don 12-26-2023 Main OR Intraoperative Record IntraOp Document Type FT Summary Primary Physician: Walker Phillip MD Finalized Date/Time: 12/26/23 11:06:58 Pt. Name: CARMEN BLEDSOE/Sex: 1960 Female Med Rec #: [id number] Physician: Walker Phillip MD Financial #: [id number] Pt. Type: O Room/Bed: / Admit/Disch: 12/23/23 10:01:45 - 12/23/23 23:59:59 Institution: Case Times FT Entry 1 Patient Times In Room 12/23/23 12:15:00 Out Room 12/23/23 12:57:00 Procedure Times Start 12/23/23 12:22:00 Stop 12/23/23 12:53:00 Anesthesia Times Start 12/23/23 12:15:00 Stop 12/23/23 12:57:00 Time at [place] 12/23/23 12:34:00 Last Modified By: Migel MURRAY, Felicia Lee 12/23/23 12:57:37 General Comments: 12/26/23 Chart opened for charge review per Barbie Galeano RN. [place] Case Attendance FT Entry 1 Entry 2 Entry 3 Case Attendee Bria PAZ, Charlene Lainez RN, Ray Graham Role Performed Anesthesiologist Old Coin Dealer - Primary Staff - Other General Accounting Manager Time In 12/23/23 12:15:00 12/23/23 12:15:00 12/23/23 12:15:00 Time Out 12/23/23 12:57:00 06/21/24 12:57:00 12/23/23 12:57:00 Procedure COLONOSCOPY(.) COLONOSCOPY(.) COLONOSCOPY(.) Comments Dr. Benz is supervising Last Modified By: Felicia Lainez RN, RN, Felicia Ingram RN 12/23/23 12:57:38 12/23/23 12:57:38 12/23/23 12:57:38 Entry 4 Entry 5 Case Attendee Mini GARZA, Mayte Phillip MD, Walker Pritchett Role Performed Scrub - Primary Surgeon - Primary Time In 12/23/23 12:15:00 12/23/23 12:15:00 Time Out 12/23/23 12:57:00 12/23/23 12:57:00 Procedure COLONOSCOPY(.) COLONOSCOPY(.) Comments Last Modified By: Migel MURRAY, Felicia Ingram RN 12/23/23 12:57:38 12/23/23 12:57:38 Perioperative Protocols FT Pre-Care Text: Implements protective measures prior to operative or invasive procedure, confirms identity before the operative or invasive procedure, verifies operative procedure, surgical site, and laterality Entry 1 Procedure(s) COLONOSCOPY(.) Patient Identity Birthday, ID Band Verified (select at Check, Patient least 2): Participation Consents / H and P Anesthesia Consent, Operative Site N/A Verified HandP, Surgery/Procedure Marking Verified Consent Surgical Site No Laterality Verified n/a Verified Procedure Verified Yes Correct Patient Yes Position Verified Availability Equipment, Medication Prep Dry n/a Verified (If Applicable) PreOp Antibiotic No Time Out Charlene Fraesr CRNA, Given Participants Felicia Lainez RN, Ray Gutierrez Schafer CST, Marjan Mcdermott MD, Walker Pritchett Time Out Complete 12/23/23 12:20:00 Outcomes Met? Yes Last Modified By: Felicia Lainez RN 12/23/23 12:20:53 Post-Care Text: The patient is free from signs and symptoms of injury caused by extraneous objects Allergy Information FT Pre-Care Text: Verifies allergies Entry 1 Allergies Reviewed? Yes Allergies Reviewed Self/Patient With Outcomes Met? Yes Last Modified By: Felicia Lainez RN 12/23/23 12:21:00 Post-Care Text: The patient received appropriate medication(s) safely administered during the perioperative period Surgical Procedures FT Entry 1 Procedure Description Procedure COLONOSCOPY Modifiers . Surgeon Description Colonoscopy with ascending colon polypectomy and transverse colon polyp lifted with everlift, removed with hot snare, x1 hemmoclip applied to site. Primary Procedure Yes Primary Surgeon Marjan SAMPSON, Walker Pritchett Start 12/23/23 12:22:00 Stop 12/23/23 12:53:00 Anesthesia Type General Surgical Service Gastroenterology Wound Class 2 - Clean-Contaminated Last Modified By: Felicia Lainez RN 12/23/23 12:55:34 General Case Data FT Pre-Care Text: Classifies surgical wound, implements aseptic technique, initiates traffic control Entry 1 Case Information OR ENDO 1 FT Case Level Level 2 Wound Class 2 - Clean-Contaminated Specialty Gastroenterology ASA Class 3 Preop Diagnosis Elevated LFTs, history Postop Same As Preop No of alcohol abuse, history of colon polyps, smoker Postop Diagnosis Ascending colon polyp, Outcomes Met? Yes transverse polyps Last Modified By: Froylan MURRAY, BSN, Kimberly 12/26/23 11:06:03 Post-Care Text: The patient is free from signs and symptoms of infection Skin Assessment (Pre Procedure) FT Pre-Care Text: Implements protective measures to prevent skin/ tissue injury due to thermal or mechanical sources Evaluates for signs and symptoms of physical injury to skin and tissue Entry 1 Skin Integrity Intact, [place], Warm, and Skin Abnormality No Dry Outcomes Met? Yes Last Modified By: Felicia Lainez RN 12/23/23 12:25:30 Post-Care Text: The patient is free from signs and symptoms of injury caused by extraneous objects Patient Positioning FT Pre-Care Text: Identifies physical alterations that require additional precautions for procedure-specific posit (more content not included)... [facility] Consent for Treatmenton 12-03 Consent for Treatment [id number]#1 .00TIFF [facility] Discharge Instructionson Discharge Instructions CARMEN BLEDSOE :1960 Visit Date:12/23/2023 Inpatient Discharge Instructions Your Care Team Admitting Physician - Walker Phillip MD Referring Physician - Walker Phillip MD Reason for Your Visit ELEVATED LFTS, HEPATOMEGALY, HX OF ALCOHOL ABUSE, HX OF COLON POLYPS, SMOKER Your Diagnosis Colon polyps Tests Performed Pathology Tissue Exam -- Results Pending -- Please visit your patient portal for your results or contact your primary care physician. This Is Your Medications List Misc Prescription (Alcohol wipes) Misc Prescription (Glucometer) Misc Prescription (Lancets) Misc Prescription (Nebulizer Machine) Misc Prescription (Nebulizer Tubing and Mouthpiece Kit) Misc Prescription (Test Strips) albuterol (Ventolin HFA 90 mcg/inh Aerosol-Adpt) albuterol (albuterol 0.083% Inh Rochelle 3 mL) aripiprazole (Abilify 2 mg Tab) cholecalciferol (Vitamin D3 5000 intl units oral capsule) dulaglutide (Trulicity Pen 1.5 mg/0.5 mL subcutaneous solution) empagliflozin (Jardiance 10 mg oral tablet) fluoxetine (FLUoxetine 20 mg Cap) fluticasone-salmetero l (Advair Diskus 100 mcg-50 mcg inhalation powder) furosemide (furosemide 40 mg Tab) glipiZIDE (glipiZIDE 2.5 mg ER Tab) montelukast (Singulair 10 mg Tab) pantoprazole (Pantoprazole [address] Tab) potassium chloride (potassium chloride 20 mEq ER Tab) rosuvastatin (Crestor 40 mg Tab) spironolactone (spironolactone 25 mg Tab) tiotropium (Spiriva Respimat 1.25 mcg/inh inhalation aerosol) tizanidine (tiZANidine 4 mg Tab) tramadol (traMADOL 50 mg Tab) trazodone (traZODONE 50 mg Tab) Procedure History Colonoscopy (03/17/2020), Eye/lens implant bilat, Knee replacement, L foot bunion/reconstruction . Discharge Vitals Temperature (Temporal Artery) 36.6 ?C Heart Rate (Monitored) 85 Respiratory Rate 15 Blood Pressure 141/95 Height 167.6 cm Weight 136 kg BMI 48.42 What to do next Instructions From Your Doctor Event Name Event Result Discharge Activity Resume normal activities in 24 hours Discharge Restrictions No driving for 24 hrs Call Your Doctor For Persistent or heavy bleeding Discharge Instructions Discharge Instructions Previously Scheduled Follow-Up Appointments Tuesday 10:30 AM EDT With: Where: [facility] Tuesday 10:00 AM EDT With: Walker Phillip MD Where: [facility] [address] [place] [address]- \.br\ Tuesday 1:00 PM EST \.br\ With: Adam SAMPSON, Alirio Hooper\.br\ Where: [facility]\.br\ New Follow Up Appointments after Discharge\.br\ Follow Up with Marjan SAMPSON, Walker Pritchett, [facility] When: \.br\ Comments:\.br\ Call Office in 2 weeks for results or follow-up Appt. \.br\ Where:\.br\ [address], [address] [facility] [address]\.br\ [place] [address]-\.br\ [phone]\.br\ Medications\.br\ What How Much When Why Instructions Next Dose\.br\ Unchanged albuterol (albuterol 0.083% Inh Rochelle 3 mL) 3 Milliliter Inhalation Every 6 hours as needed for Shortness of breath or wheezing\.br\ Unchanged albuterol (Ventolin HFA 90 mcg/ inh Aerosol-Adpt) 2 Puffs Inhalation Every 6 hours as needed for for wheezing\.br\ Unchanged aripiprazole (Abilify 2 mg Tab) 1 Tablets By Mouth Every day\.br\ Unchanged cholecalciferol (Vitamin D3 5000 intl units oral capsule) 1 Capsules By Mouth Every day with food \.br\ Unchanged dulaglutide (Trulicity Pen 1.5 mg/ 0.5 mL subcutaneous solution) 1.5 Milligram Subcutaneous Every week\.br\ Unchanged empagliflozin (Jardiance 10 mg oral tablet) 10 Milligram By Mouth Every day\.br\ Unchanged fluoxetine (FLUoxetine 20 mg Cap) 2 Capsules By Mouth Every day\.br\ Unchanged fluticasone-salm eterol (Advair Diskus 100 mcg-50 mcg inhalation powder) See instructions\.br \ Unchanged furosemide (furosemide 40 mg Tab) 1 Tablets By Mouth Every day\.br\ Unchanged glipiZIDE (glipiZIDE 2.5 mg ER Tab) 1 Tablets By Mouth Every day\.br\ Unchanged Misc Prescription (Alcohol wipes) See instructions Use to check BS daily dx E11.9 \.br\ Unchanged Misc Prescription (Glucometer) See instructions Glucometer to test BS TID and PRN dx E11.9 \.br\ Unchanged Misc Prescription (Lancets) See instructions Use to check BS daily dx E11.9 \.br\ Unchanged Misc Prescription (Nebulizer Machine) See instructions Moderate persistent asthma Nebulizer Machine \.br\ Unchanged Misc Prescription (Nebulizer Tubing and Mouthpiece Kit) See instructions Moderate persistent asthma Nebulizer Tubing and Mouthpiece Kit \.br\ Unchanged Misc Prescription (Test Strips) See instructions Type 2 diabetes mellitus with morbid obesity Use to test BS daily \.br\ Unchanged montelukast (Singulair 10 mg Tab) 1 Tablets By Mouth Once a day (in the evening) Moderate persistent asthma\.br\ Unchanged pantoprazole (Pantoprazole [address] Tab) 1 Tablets By Mouth Every day\.br\ Unchanged potassium chloride (potassium chloride 20 mEq ER Tab) 1 Tablets By Mouth Every day as needed for PRN Take with Lasix \.br\ Unchanged rosuvastatin (Crestor 40 mg Tab) 1 Tablets By Mouth Every day\.br\ Unchanged spironolactone (spironolactone 25 mg Tab) 1 Tablets By Mouth Every day Duration: 90 Days\.br\ Unchanged tiotropium (Spiriva Respimat 1.25 mcg/ inh inhalation aerosol) 2 Puffs Inhalation Every day\.br\ Unchanged tizanidine (tiZANidine 4 mg Tab) 1 Tablets By Mouth Every 8 hours as needed for Spasm\.br\ Unchanged tramadol (traMADOL 50 mg Tab) 1 Tablets By Mouth Every 6 hours as needed for for pain\.br\ Unchanged trazodone (traZODONE 50 mg Tab) 1 Tablets By Mouth Once a day (at bedtime)\.br\ Test Results\.br\ No qualifying data available.\.br\ Allergies\.br\ amLODIPine (Leg Edema)\.br\ lisinopril (Persistent cough, Tongue swelling)\.br\ metFORMIN (Diarrhea)\.br\ Problems\.br\ Ongoing - Any problem that you are currently receiving treatment for.\.br\ Alcohol problem drinking\.br\ Benign hypertension\.br \ Bilateral hip pain\.br\ Bilateral leg edema\.br\ BMI 50.0-59.9, adult\.br\ Chronic insomnia\.br\ Cigarette smoker\.br\ Class 3 severe obesity due to excess calories with serious comorbidity in adult\.br\ Elevated LFTs\.br\ Elevated liver transaminase level\.br\ Encounter for medication management\.br\ Fatty liver\.br\ GA (granuloma annulare)\.br\ GERD (gastroesophagea l reflux disease)\.br\ Heart failure with preserved ejection fraction\.br\ Hepatomegaly\.br \ History of alcohol abuse\.br\ History of colon polyps\.br\ Hypokalemia\.br\ Left hand weakness\.br\ Low vitamin D level\.br\ Marijuana user\.br\ Medication management\.br\ Mixed hyperlipidemia\. br\ Moderate persistent asthma\.br\ Neurogenic claudication\.br \ Obstructive sleep apnea\.br\ Restless leg syndrome\.br\ Right hip pain\.br\ Sciatica\.br\ Seborrheic keratoses\.br\ Severe major depression\.br\ Skin tags, multiple acquired\.br\ Smoker\.br\ Type 2 diabetes mellitus with morbid obesity\.br\ Uterine fibroid\.br\ Historical - Any problem that you are no longer receiving treatment for.\.br\ COPD exacerbation\.br \ Tubular adenoma of colon\.br\ Devices Implanted/Remove d This Visit\.br\ Notice: You have devices implanted this visit that may not be MRI compatible.\.br\ Implanted\.br\ Undefined Procedure\.br\ Body Site Undefined\.br\ CAUTERY ERBE UNIT 12/23/2023\.br\ Education Materials\.br\ \.br\ Colonoscopy\.br\ Care After Surgery\.br\ \.br\ Please read the instructions outlined below and refer to this sheet in the next few weeks. These discharge instructions provide you with general information on caring for yourself after you leave the hospital. Your doctor may also give you specific instructions. While your treatment has been planned according to the most current medical practices available, unavoidable complications occasionally occur. If you have any problems or questions after discharge, please call your doctor.\.br\ \.br\ ACTIVITY\.br\ You may resume your regular activity, but move at a slower pace for the next 24 hours.\.br\ Take frequent rest periods for the next 24 hours.\.br\ Walking will help get rid of the air and reduce the bloated feeling in your abdomen (belly).\.br\ No driving for 24 hours (because of the anesthesia (medicine) used during the test).\.br\ You may shower.\.br\ Do not sign any important legal documents or operate any machinery for 24 hours (because of the anesthesia used during the test).\.br\ \.br\ NUTRITION\.br\ Drink plenty of fluids.\.br\ You may resume your normal diet as instructed by your doctor.\.br\ Begin with a light meal and progress to your normal diet. Heavy or fried foods are harder to digest and may make you feel nauseated (sick to your stomach).\.br\ Avoid alcoholic beverages for 24 hours or as instructed.\.br\ \.br\ MEDICATIONS\.br\ You may resume your normal medications unless your doctor tells you otherwise.\.br\ \.br\ WHAT YOU CAN EXPECT TODAY\.br\ Some feelings of bloating in the abdomen.\.br\ Passage of more gas than usual.\.br\ Spotting of blood in your stool or on the toilet paper.\.br\ \.br\ FOLLOW-UP\.br\ Your doctor will discuss the results of your test with you.\.br\ \.br\ SEEK IMMEDIATE MEDICAL ATTENTION IF:\.br\ There is more than a spotting of blood in your stool.\.br\ There is abdominal distention (your abdomen is swollen).\.br\ There is vomiting.\.br\ You have a temperature over 101.5 F.\.br\ There is abdominal pain or discomfort that is severe or gets worse throughout the day.\.br\ Common Emergency Awareness Tips\.br\ IS IT A STROKE?\.br\ Act FAST and Check for these signs:\.br\ FACE\.br\ Does the face look uneven?\.br\ ARM\.br\ Does one arm drift down?\.br\ SPEECH\.br\ Does their speech sound strange?\.br\ TIME\.br\ Call at any sign of stroke\.br\ Heart Attack Signs\.br\ Chest discomfort: Most heart attacks involve discomf [facility] Comment on above: Result Comment: Elec tronically Signed By: Anais Valentine RN\.br\Date and Time Signed: 12/23/23 13:18 EDT Endoscopic Procedure Report - Otheron 12-23-2023 Endoscopic Procedure Report - Other Patient: CARMEN BLEDSOE Age: 63 years Sex: Female : 1960 Associated Diagnoses: None Author: Walker Phillip MD Pre-Procedure Procedure Date 12/23/2023 12:56:00 . Procedure Type: Colonoscopy with removal of tumor(s), polyp(s), or other lesion(s) by cold snare technique. Procedure provider Performed by Walker Phillip MD. Current history and physical Reviewed. Colonoscopy ([id number]) on 03/17/2020 at 59 Years. L foot bunion/reconstruction . Eye/lens implant bilat. Knee replacement ([id number]).. Past Medical History Resolved Tubular adenoma of colon ([id number]): Resolved. COPD exacerbation ([id number]): Resolved.. Family History Liver cancer Father () Hypertension Sister Brother Mother () Stomach cancer Mother () . Procedure History Colonoscopy ([id number]) on 03/17/2020 at 59 Years. L foot bunion/reconstruction . Eye/lens implant bilat. Knee replacement ([id number]).. Colorectal neoplasm risk assessment High risk Previous history of polyps. . Informed Consent After discussing the rationale, risks and benefits, and alternatives to this procedure, the patient provided signed consent for the procedure. Pre-procedure diagnosis: History of colon polyps. Medications (Selected) Inpatient Medications Ordered Lactated Ringers IV Rochelle 1000 mL 1,000 mL: 1,000 mL, IV, 100 mL/hr, Routine, Start date 12/23/23 10:12:00 EDT, 10 hour(s), Total volume (mL): 1,000, 139 kg, 2.55, m2 Lactated Ringers IV Rochelle 1000 mL 1,000 mL: 1,000 mL, IV, 100 mL/hr, Routine, Start date 12/23/23 11:25:00 EDT, 10 hour(s), Total volume (mL): 1,000, 136 kg, 2.52, m2 Sodium Chloride 0.9% IV Rochelle 1000 mL 1,000 mL: 1,000 mL, IV, 20 mL/hr, Routine, Start date 12/23/23 6:43:00 EDT, 50 hour(s), Total volume (mL): 1,000, 139 kg, 2.55, m2 Prescriptions Prescribed Abilify 2 mg Tab: 2 mg = 1 tab(s), Oral, Daily, # 90 tab(s), Refills(s) 3, Pharmacy: [id number], 167, cm, 01/11/23 11:15:00 EDT, Height/Length Dosing, 138, kg, 01/11/23 11:15:00 EDT, Weight Dosing Alcohol wipes: Alcohol wipes, See Instructions, 100 EA, 3, Use to check BS daily dx E11.9, [id number], Supply, 163, cm, 12/30/21 11:09:00 EDT, Height/Length Dosing, 154, kg, 12/30/21 11:09:00 EDT, Weight Dosing Crestor 40 mg Tab: 40 mg = 1 tab(s), Oral, Daily, # 90 tab(s), Refills(s) 3, Pharmacy: [facility] #[id number], 167, cm, 05/09/23 8:15:00 EST, Height/Length Dosing, 145.6, kg, 05/09/23 8:15:00 EST, Weight Dosing FLUoxetine 20 mg Cap: 40 mg = 2 cap(s), Oral, Daily, # 180 cap(s), Refills(s) 1, Pharmacy: [facility] #[id number], 167, cm, 08/10/23 14:24:00 EST, Height/Length Dosing, 151.4, kg, 08/10/23 14:24:00 EST, Weight Dosing Glucometer: Glucometer, See Instructions, 1 EA, 0, Glucometer to test BS TID and PRN dx E11.9, [facility], Supply, 170, cm, 05/27/21 8:31:00 EST, Height/Length Dosing, 157.8, kg, 05/27/21 8:31:00 EST, Weight Dosing Jardiance 10 mg oral tablet: 10 mg, Oral, Daily, # 90 tab(s), Refills(s) 2, [facility]acy: [facility] #[id number], 167, cm, 08/10/23 14:24:00 EST, Height/Length Dosing, 151.4, kg, 08/10/23 14:24:00 EST, Weight Dosing Lancets: Lancets, See Instructions, 100 EA, 3, Use to check BS daily dx E11.9, [facility] #[id number], Supply, 163, cm, 12/30/21 11:09:00 EDT, Height/Length Dosing, 154, kg, 12/30/21 11:09:00 EDT, Weight Dosing Nebulizer Machine: Nebulizer Machine, See Instructions, 1 EA, 0, Nebulizer Machine, [facility] #[id number], Supply, 168, cm, 10/11/23 14:32:00 EDT, Height/Length Dosing, 160.2, kg, 10/11/23 14:32:00 EDT, Weight Dosing Nebulizer Tubing and Mouthpiece Kit: Nebulizer Tubing and Mouthpiece Kit, See Instructions, 1 kit(s), 0, Nebulizer Tubing and Mouthpiece Kit, [facility] #[id number], Supply, 168, cm, 10/11/23 14:32:00 EDT, Height/Length Dosing, 160.2, kg, 10/11/23 14:32:00 EDT, Weight Dosing Pantoprazole [address] Tab: 40 mg = 1 tab(s), Oral, Daily, # 90 tab(s), Refills(s) 3, [facility]acy: [facility] #[id number], 167, cm, 01/11/23 11:15:00 EDT, Height/Length Dosing, 138, kg, 01/11/23 11:15:00 EDT, Weight Dosing Singulair 10 mg Tab: 10 mg = 1 tab(s), Oral, qPM, # 30 tab(s), Refills(s) 2, Pharmacy: [facility], 170, cm, 10/16/19 9:09:00 EDT, Height/Length Measured, 154.3, kg, 10/16/19 9:09:00 EDT, Weight Measured Spiriva Respimat 1.25 mcg/inh inhalation aerosol: 2 puff(s), Inhalation, Daily, 3 EA, Refill(s) 3, [facility], 163, cm, 12/30/21 11:09:00 EDT, Height/Length Dosing, 154, kg, 12/30/21 11:09:00 EDT, Weight Dosing Test Strips: Test Strips, See Instructions, 100 EA, 3, Use to test BS daily, [facility] #[id number], Supply, 167.5, cm, 10/18/22 13:30:00 EDT, Height/Length Dosing, 147, kg, 10/18/22 13:30:00 EDT, Weight Dosing Trulicity Pen 1.5 mg/0.5 mL subcutaneous solution: 1.5 mg, SubCutaneous, qWeek, # 4 EA, Refills(s) 0, Pharmacy: [facility] #[id number], 168, cm, 12/06/23 14:55:00 EDT, Height/Length Dosing, 139, kg, 12/06/23 14:55:00 EDT, Weight Dosing Ventolin HFA 90 mcg/inh Aerosol-Adpt: 2 (more content not included)... Normal [facility] Comment on above: Result Comment: Elec tronically Signed By: Walker Phillip MD\.br\Date and Time Signed: 12/23/23 12:58 EDT Main OR PACU I Recordon 12-03 Main OR PACU I Record PACU Phase I Document Type FT Summary Primary Physician: Walker Phillip MD Finalized Date/Time: 12/23/23 13:44:10 Pt. Name: CARMEN BLEDSOE/Sex: 1960 Female Med Rec #: [id number] Physician: Walker Phillip MD Financial #: [id number] Pt. Type: O Room/Bed: / Admit/Disch: 12/23/23 10:01:45 - Institution: Case Times PACU I FT Pre-Care Text: Identifies barriers to communication and implements measures to provide psychological support Develops individualized plan of care, and ensures continuity of care Maintains patient's dignity and privacy, and maintains patient confidentiality Identifies and reports philosophical, cultural, and spiritual beliefs and values Identifies individual values and wishes concerning care Implements aseptic technique, and administers prescribed antibiotic therapy and immunizing agents as ordered Evaluates postoperative tissue perfusion Implements thermoregulation measures, and monitors body temperature Evaluates postoperative respiratory status Evaluates postoperative cardiac status Evaluates postoperative neurological status Assesses pain control, collaborated in initiating patient-controlled analgesia and implements alternative methods of pain control Verifies allergies, administers prescribed medications and solutions, evaluates response to medications Entry 1 In PACU I 12/23/23 13:00:00 Discharge from PACU 12/23/23 13:30:00 I Outcomes Met? Yes Last Modified By: Anais Valentine RN 12/23/23 13:43:58 Post-Care Text: The patient demonstrates knowledge of the expected response to the operative or invasive procedure The patient's care is consistent with the individualized perioperative plan of care The patient's right to privacy is maintained The patient's value system, lifestyle, ethnicity, and culture are considered, respected, and incorporated into the perioperative plan of care The patient participates in decisions affecting his or her perioperative plan of care The patient is free from signs and symptoms of infection The patient has wound/tissue perfusion consistent with or improved from baseline levels established preoperatively The patient is at or returning to normothermia at the conclusion of the immediate postoperative period The patient's respiratory function is consistent with or improved from baseline levels established preoperatively The patient's cardiovascular status is consistent with or improved from baseline levels established preoperatively The patient's cardiovascular status is consistent with or improved from baseline levels established preoperatively The patient demonstrates and/or reports adequate pain control throughout the perioperative period The patient received appropriate medication(s), safely administered during the perioperative period Acuity Level PACU I FT Entry 1 Start Time 12/23/23 13:00:00 Stop Time 12/23/23 13:30:00 Acuity Level Acuity Level I Last Modified By: Anais Valentine RN 12/23/23 13:44:08 Finalized By: Anais Valentine RN Document Signatures Signed By: Anais Valentine RN 12/23/23 13:44 [facility] Main OR Preoperative Recordo n 12-23-2023 Main OR Preoperative Record Holding Area Document Type FT Summary Primary Physician: Walker Phillip MD Finalized Date/Time: 12/23/23 10:57:22 Pt. Name: CARMEN BLEDSOE D.O.B./Sex: 1960 Female Med Rec #: [id number] Physician: Walker Phillip MD Financial #: [id number] Pt. Type: O Room/Bed: / Admit/Disch: 12/23/23 10:01:45 - Institution: Case Times Holding FT Pre-Care Text: Verifies consent for planned procedure, identifies individual values and wishes concerning care, includes family members in perioperative teaching Secures patient's records' belongings, and valuables, maintains patient's dignity and privacy, and maintains patient confidentiality Entry 1 In Holding 12/23/23 10:45:00 Outcomes Met? Yes Last Modified By: Jannet Adorno RN 12/23/23 10:56:11 Post-Care Text: The patient participates in decisions affecting his or her perioperative plan of care The patient's right to privacy is maintained Surgery Checklist FT Entry 1 Patient Birthday, ID Band Procedure History and Physical, Identification: Check, Patient Verification: Surgical Consent, With Participation Patient NPO after Midnight: Yes Date/Time: 12/23/23 08:00:00 Personal Items bilateral knee Limitations: n/a Comment: replacement, left foot metal implant, clothes, shoes Complaints of Pain: Yes Pain Comment: 01/10 right hip pain Operative Site n/a Marked By: n/a Marking: Availability Equipment Verified: Does Patient Smoke Yes If Yes to Smoking. 1/2 pack per day Cigars or Cigarettes. How much per day? Patient states Yes Comment - Adult Becca- friend postop adult Supervision supervision available Case Cancelled in No Holding Area see comments below for reason Last Modified By: Jannet Adorno RN 12/23/23 10:57:20 General Comments: Pt finished colon prep at 0800, states stool is clear liquid green, has been NPO since. /,RN Finalized By: Jannet Adorno RN Document Signatures Signed By: Jannet Adorno RN 12/23/23 10:57 Normal [facility] Monitor Recordon 12-23-2023 Monitor Record [id number]# 1.00TIFF Normal [facility] Nursing Narrative Noteon Nursing Narrative Note Unable to obtain accurate testing after attempt x2 RN d/t pt body habitus. Normal [facility] Patient Education - Texton 0 12-23-2023 Patient Education - Text Colonoscopy Care After Surgery Please read the instructions outlined below and refer to this sheet in the next few weeks. These discharge instructions provide you with general information on caring for yourself after you leave the hospital. Your doctor may also give you specific instructions. While your treatment has been planned according to the most current medical practices available, unavoidable complications occasionally occur. If you have any problems or questions after discharge, please call your doctor. ACTIVITY You may resume your regular activity, but move at a slower pace for the next 24 hours. Take frequent rest periods for the next 24 hours. Walking will help get rid of the air and reduce the bloated feeling in your abdomen (belly). No driving for 24 hours (because of the anesthesia (medicine) used during the test). You may shower. Do not sign any important legal documents or operate any machinery for 24 hours (because of the anesthesia used during the test). NUTRITION Drink plenty of fluids. You may resume your normal diet as instructed by your doctor. Begin with a light meal and progress to your normal diet. Heavy or fried foods are harder to digest and may make you feel nauseated (sick to your stomach). Avoid alcoholic beverages for 24 hours or as instructed. MEDICATIONS You may resume your normal medications unless your doctor tells you otherwise. WHAT YOU CAN EXPECT TODAY Some feelings of bloating in the abdomen. Passage of more gas than usual. Spotting of blood in your stool or on the toilet paper. FOLLOW-UP Your doctor will discuss the results of your test with you. SEEK IMMEDIATE MEDICAL ATTENTION IF: There is more than a spotting of blood in your stool. There is abdominal distention (your abdomen is swollen). There is vomiting. You have a temperature over 101.5 F. There is abdominal pain or discomfort that is severe or gets worse throughout the day. Normal [facility] Progress Note-Physicianon Progress Note-Physician Patient: CARMEN BLEDSOE Age: 63 years Sex: Female : 1960 Associated Diagnoses: None Author: Zaid Benz MD Postoperative Information Postoperative disposition: Postoperative disposition: To PACU. Optimetrix number: Optimetrix number [id number]. Anesthetic utilized: General. Health Status Allergies: Allergic Reactions (Selected) Severe AmLODIPine- Leg edema. Lisinopril- Tongue swelling and persistent cough. Nonallergic Reactions (Selected) Severity Not Documented MetFORMIN- Diarrhea. Physical Examination Vital Signs 12/23/2023 13:25 EDT Heart Rate Monitored 78 bpm Respiratory Rate Monitored 24 br/min Systolic Blood Pressure 166 mmHg HI Diastolic Blood Pressure 84 mmHg Mean Arterial Pressure, Cuff 111 mmHg SpO2 98 % 12/23/2023 13:15 EDT Heart Rate Monitored 69 bpm Respiratory Rate Monitored 17 br/min Systolic Blood Pressure 155 mmHg HI Diastolic Blood Pressure 89 mmHg Mean Arterial Pressure, Cuff 111 mmHg SpO2 99 % 12/23/2023 13:10 EDT Heart Rate Monitored 85 bpm Respiratory Rate Monitored 15 br/min Systolic Blood Pressure 141 mmHg HI Diastolic Blood Pressure 95 mmHg HI Mean Arterial Pressure, Cuff 110 mmHg SpO2 99 % 12/23/2023 13:05 EDT Heart Rate Monitored 86 bpm Respiratory Rate Monitored 15 br/min Systolic Blood Pressure 148 mmHg HI Diastolic Blood Pressure 96 mmHg HI Mean Arterial Pressure, Cuff 113 mmHg SpO2 97 % 12/23/2023 13:00 EDT Temperature Temporal Artery 36.5 DegC Heart Rate Monitored 96 bpm Respiratory Rate Monitored 27 br/min Systolic Blood Pressure 141 mmHg HI Diastolic Blood Pressure 74 mmHg Blood Pressure Location Left arm Mean Arterial Pressure, Cuff 96 mmHg SpO2 98 % Pain Assessment: Controlled. General: Awake, Appropriate. Respiratory: Adequate air exchange. Cardiovascular: Stable. Neurological Assessment Anesthetic outcome No anesthetic complications noted. Adequate pain relief. Review / Management Condition: Stable. Plan Transfer/Discharge: Transfer/Discharge Discharge when meets criteria ( To home ). Normal [facility] Comment on above: Result Comment: Elec tronically Signed By: Zaid Benz MD\.br\Date and Time Signed: 12/23/23 14:27 EDT Progress Note-Physician Patient: CARMEN BLEDSOE Age: 63 years Sex: Female : 1960 Associated Diagnoses: None Author: Zaid Benz MD Preoperative Information Anesthesia Preop Info: Time patient last ate or drank 12/23/2023 00:00:00. Anesthesia history: Patient history: None. Family history+: None. Informed consent: Signed by patient. Re-evaluation prior to induction: Initial evaluation reviewed: No significant change. Review of Systems Eye Ear/Nose/Mouth/Throat Respiratory: No shortness of breath, No cough. Cardiovascular: No chest pain, No palpitations, No syncope. Musculoskeletal Neurologic Health Status Allergies: Allergic Reactions (Selected) Severe AmLODIPine- Leg edema. Lisinopril- Tongue swelling and persistent cough. Nonallergic Reactions (Selected) Severity Not Documented MetFORMIN- Diarrhea., Allergies (3) Active Severity Reaction lisinopril Severe Tongue swelling, Persistent cough amLODIPine Severe Leg Edema metFORMIN Diarrhea Current medications: (Selected) Inpatient Medications Ordered Sodium Chloride 0.9% IV Rochelle 1000 mL 1,000 mL: 1,000 mL, IV, 20 mL/hr, Routine, Start date 12/23/23 6:43:00 EDT, 50 hour(s), Total volume (mL): 1,000, 139 kg, 2.55, m2 Prescriptions Prescribed Abilify 2 mg Tab: 2 mg = 1 tab(s), Oral, Daily, # 90 tab(s), Refills(s) 3, Pharmacy: [facility] #[id number], 167, cm, 01/11/23 11:15:00 EDT, Height/Length Dosing, 138, kg, 01/11/23 11:15:00 EDT, Weight Dosing Alcohol wipes: Alcohol wipes, See Instructions, 100 EA, 3, Use to check BS daily dx E11.9, [facility] #[id number], Supply, 163, cm, 12/30/21 11:09:00 EDT, Height/Length Dosing, 154, kg, 12/30/21 11:09:00 EDT, Weight Dosing Crestor 40 mg Tab: 40 mg = 1 tab(s), Oral, Daily, # 90 tab(s), Refills(s) 3, Pharmacy: [facility] #[id number], 167, cm, 05/09/23 8:15:00 EST, Height/Length Dosing, 145.6, kg, 05/09/23 8:15:00 EST, Weight Dosing FLUoxetine 20 mg Cap: 40 mg = 2 cap(s), Oral, Daily, # 180 cap(s), Refills(s) 1, Pharmacy: [facility] #[id number], 167, cm, 08/10/23 14:24:00 EST, Height/Length Dosing, 151.4, kg, 08/10/23 14:24:00 EST, Weight Dosing Glucometer: Glucometer, See Instructions, 1 EA, 0, Glucometer to test BS TID and PRN dx E11.9, [facility], Supply, 170, cm, 05/27/21 8:31:00 EST, Height/Length Dosing, 157.8, kg, 05/27/21 8:31:00 EST, Weight Dosing Jardiance 10 mg oral tablet: 10 mg, Oral, Daily, # 90 tab(s), Refills(s) 2, Pharmacy: [facility] #[id number], 167, cm, 08/10/23 14:24:00 EST, Height/Length Dosing, 151.4, kg, 08/10/23 14:24:00 EST, Weight Dosing Lancets: Lancets, See Instructions, 100 EA, 3, Use to check BS daily dx E11.9, [facility] #[id number], Supply, 163, cm, 12/30/21 11:09:00 EDT, Height/Length Dosing, 154, kg, 12/30/21 11:09:00 EDT, Weight Dosing Nebulizer Machine: Nebulizer Machine, See Instructions, 1 EA, 0, Nebulizer Machine, [facility] #[id number], Supply, 168, cm, 10/11/23 14:32:00 EDT, Height/Length Dosing, 160.2, kg, 10/11/23 14:32:00 EDT, Weight Dosing Nebulizer Tubing and Mouthpiece Kit: Nebulizer Tubing and Mouthpiece Kit, See Instructions, 1 kit(s), 0, Nebulizer Tubing and Mouthpiece Kit, [facility] #38896, Supply, 168, cm, 10/11/23 14:32:00 EDT, Height/Length Dosing, 160.2, kg, 10/11/23 14:32:00 EDT, Weight Dosing Pantoprazole [address] Tab: 40 mg = 1 tab(s), Oral, Daily, # 90 tab(s), Refills(s) 3, Pharmacy: [facility] #[id number], 167, cm, 01/11/23 11:15:00 EDT, Height/Length Dosing, 138, kg, 01/11/23 11:15:00 EDT, Weight Dosing Singulair 10 mg Tab: 10 mg = 1 tab(s), Oral, qPM, # 30 tab(s), Refills(s) 2, Pharmacy: [facility], 170, cm, 10/16/19 9:09:00 EDT, Height/Length Measured, 154.3, kg, 10/16/19 9:09:00 EDT, Weight Measured Spiriva Respimat 1.25 mcg/inh inhalation aerosol: 2 puff(s), Inhalation, Daily, 3 EA, Refill(s) 3, [facility], 163, cm, 12/30/21 11:09:00 EDT, Height/Length Dosing, 154, kg, 12/30/21 11:09:00 EDT, Weight Dosing Test Strips: Test Strips, See Instructions, 100 EA, 3, Use to test BS daily, [facility] #[id number], Supply, 167.5, cm, 10/18/22 13:30:00 EDT, Height/Length Dosing, 147, kg, 10/18/22 13:30:00 EDT, Weight Dosing Trulicity Pen 1.5 mg/0.5 mL subcutaneous solution: 1.5 mg, SubCutaneous, qWeek, # 4 EA, Refills(s) 0, Pharmacy: [facility] #[id number], 168, cm, 12/06/23 14:55:00 EDT, Height/Length Dosing, 139, kg, 12/06/23 14:55:00 EDT, Weight Dosing Ventolin HFA 90 mcg/inh Aerosol-Adpt: 2 puff(s), Inhalation, q6hr for wheezing, 1 EA, Refill(s) 1, [facility] #[id number], 167, cm, 09/29/22 11:37:00 EDT, Height/Length Dosing, 149.2, kg, 09/29/22 11:37:00 EDT, Weight Dosing Vitamin D3 5000 intl units oral capsule: 5,000 International_Unit = 1 cap(s), Oral, Daily, with food, # 100 cap(s), Refills(s) 1, Pharmacy: [facility] #[id number], 170, cm, 10/13/22 9:06:00 EDT, Height/Length Dosing, 149.2, kg, 09/29/22 11:37:00 EDT, Weight Dosing albuterol 0.083% Inh Rochelle 3 mL: 2.5 mg, 3 mL, Inhalation, q6hr Shortness of breath or wheezing, 100 EA, Refill(s) 1, [facility] #85302, 168, cm, 10/11/23 14:32: (more content not included)... Normal [facility] Comment on above: Result Comment: Elec tronically Signed By: Demar SAMPSON, Zaid Hooper\.br\Date and Time Signed: 12/23/23 11:24 EDT RAD - MRI Reporton RAD - MRI Report [id number]#1. 00TIFF Normal [facility] MRI LUMBAR SPINE WO CONTRAST on 12-22-2023 MRI LUMBAR SPINE WO CONTRAST HISTORY: Low back pain with right hip pain for the past 6 months. MRI LUMBAR SPINE WO CONTRAST: 12/19/2023 2:57 PM EDT COMPARISON: Radiographs lumbar spine 10/19/2022. TECHNIQUE: Sagittal T1, T2, STIR, axial T1 and axial T2-weighted images of the lumbar spine were obtained. FINDINGS: Several images are slightly degraded by motion artifact. There is a mild rotatory dextroconvex scoliosis of the lumbar spine centered at the L3-L4 level. There is mild degenerative grade 1 retrolisthesis of 2 mm again seen at the L1-L2 through the L4-L5 level. There is no compression fracture. There is mild chronic anterior wedging of the L1 vertebral body which is probably physiologic in nature. There is multilevel discogenic disease of the visualized lower thoracic spine and lumbar spine. This appears moderately severe on the right at the L4-L5 level. The bone marrow signal intensity appears age appropriate. The conus medullaris is not studied in detail, but it appears grossly unremarkable. T11-T12 level: There is a small right paracentral disc protrusion causing mild narrowing of the right lateral recess. No central spinal canal stenosis or foraminal narrowing. T12-L1 level: No significant disc protrusion, spinal canal stenosis, or foraminal narrowing is seen. L1-L2 level: There is a small posterior disc-osteophyte complex without spinal canal stenosis or foraminal narrowing. There is mild-moderate facet joint arthropathy. L2-L3 level: There is a small posterior disc-osteophyte complex. Superimposed on this disc-osteophyte complex is a small left paracentral/left foraminal disc extrusion with mild cranial and caudal migration into the region of the left lateral recess and the superior aspect of the left foramen. This combines with mild facet joint arthropathy to cause moderate-severe left foraminal narrowing and mild narrowing of the left lateral recess. No central spinal canal stenosis or right foraminal narrowing. L3-L4 level: There is a small posterior disc-osteophyte complex without significant spinal canal stenosis or foraminal narrowing. There is moderate right facet joint arthropathy. L4-L5 level: There is a small posterior disc-osteophyte complex more prominent in the right foraminal/far lateral region and this combines with disc space narrowing and moderate- severe facet joint arthropathy on the right to cause severe right foraminal narrowing. There is also mild left foraminal narrowing. No central spinal canal stenosis. L5-S1 level: There is a small posterior disc bulge causing mild bilateral foraminal narrowing. No central spinal canal stenosis. There is severe facet joint arthropathy and there are bilateral facet joint effusions. There is bone marrow edema-like signal within the adjacent articular processes, worse on the right than the left. This bone marrow edema also extends into the right L5 pedicle. IMPRESSION: 1. Mild rotatory dextroconvex scoliosis of the lumbar spine with multilevel foraminal narrowing at the L2-L3, L4-L5, and L5-S1 level secondary to factors described above. This appears most severe on the right at the L4-L5 level. 2. No central spinal canal stenosis of the lumbar spine. 3. There is multilevel facet joint arthropathy and this appears severe bilaterally at the L5-S1 level where there are bilateral facet joint effusions. There is probable reactive bone marrow edema-like signal within the adjacent articular processes bilaterally at this level, which is worse on the right than the left and this may be a source of pain. Interpreted by: Dwayne Ruffin MD Signed by: Dwayne Ruffin MD 12/22/23 Final result Normal [facility] Insurance Correspondenceon 0 12-13-2023 Insurance Correspondence [id number]# 1.00TIFF [facility] Physician Orderon 12-07-2023 Physician Order [id number]# 1.00TIFF [facility] Ambulatory Visit Summaryon 0 12-06-2023 Ambulatory Visit Summary CARMEN BLEDSOE :1960 Visit Date:12/06/2023 Ambulatory Visit Instructions Your Care Team Attending Physician - Adam SAMPSON, Alirio Hooper Primary Care Physician - Yocasta MSN, CREDIT COLLECTIONS CLERK-UPPER MARKER, Myron Hamilton Referring Physician - NONE, XXXX This Is Your Medications List Misc Prescription (Alcohol wipes) Misc Prescription (Glucometer) Misc Prescription (Lancets) Misc Prescription (Nebulizer Machine) Misc Prescription (Nebulizer Tubing and Mouthpiece Kit) Misc Prescription (Test Strips) albuterol (Ventolin HFA 90 mcg/inh Aerosol-Adpt) albuterol (albuterol 0.083% Inh Rochelle 3 mL) aripiprazole (Abilify 2 mg Tab) cholecalciferol (Vitamin D3 5000 intl units oral capsule) dulaglutide (Trulicity Pen 1.5 mg/0.5 mL subcutaneous solution) empagliflozin (Jardiance 10 mg oral tablet) fluoxetine (FLUoxetine 20 mg Cap) fluticasone-salmetero l (Advair Diskus 100 mcg-50 mcg inhalation powder) furosemide (furosemide 40 mg Tab) glipiZIDE (glipiZIDE 2.5 mg ER Tab) montelukast (Singulair 10 mg Tab) pantoprazole (Pantoprazole [address] Tab) potassium chloride (potassium chloride 20 mEq ER Tab) rosuvastatin (Crestor 40 mg Tab) spironolactone (spironolactone 25 mg Tab) tiotropium (Spiriva Respimat 1.25 mcg/inh inhalation aerosol) tizanidine (tiZANidine 4 mg Tab) tramadol (traMADOL 50 mg Tab) trazodone (traZODONE 50 mg Tab) Procedures Performed Colonoscopy (03/17/2020), Eye/lens implant bilat, Knee replacement, L foot bunion/reconstruction . Discharge Vitals Heart Rate (Peripheral) 86 Blood Pressure 124/80 Height 168 cm Height 66 in Weight 139.0 kg Weight 305.8 lb BMI 49.25 What to do next Scheduled Follow-Up Appointments Tuesday 10:30 AM EDT With: Where: [facility] Tuesday 12:00 PM EDT With: Where: [facility] Tuesday 10:45 AM EDT With: Marjan SAMPSON, Walker Pritchett Where: [facility] Normal [address] [place] [address]- \.br\ Tuesday 1:00 PM EST \.br\ With: Adam SAMPSON, Alirio Hooper\.br\ Where: [facility]\.br\ Medications\.br\ What How Much When Why Instructions\.br \ Unchanged albuterol (albuterol 0.083% Inh Rochelle 3 mL) 3 Milliliter Inhalation Every 6 hours as needed for Shortness of breath or wheezing\.br\ Unchanged albuterol (Ventolin HFA 90 mcg/ inh Aerosol-Adpt) 2 Puffs Inhalation Every 6 hours as needed for for wheezing\.br\ Unchanged aripiprazole (Abilify 2 mg Tab) 1 Tablets By Mouth Every day\.br\ Unchanged cholecalciferol (Vitamin D3 5000 intl units oral capsule) 1 Capsules By Mouth Every day with food \.br\ Unchanged dulaglutide (Trulicity Pen 1.5 mg/ 0.5 mL subcutaneous solution) 1.5 Milligram Subcutaneous Every week\.br\ Unchanged empagliflozin (Jardiance 10 mg oral tablet) 10 Milligram By Mouth Every day\.br\ Unchanged fluoxetine (FLUoxetine 20 mg Cap) 2 Capsules By Mouth Every day\.br\ Unchanged fluticasone-salm eterol (Advair Diskus 100 mcg-50 mcg inhalation powder) See instructions\.br \ Unchanged furosemide (furosemide 40 mg Tab) 1 Tablets By Mouth Every day\.br\ Unchanged glipiZIDE (glipiZIDE 2.5 mg ER Tab) 1 Tablets By Mouth Every day\.br\ Unchanged Misc Prescription (Alcohol wipes) See instructions Use to check BS daily dx E11.9 \.br\ Unchanged Misc Prescription (Glucometer) See instructions Glucometer to test BS TID and PRN dx E11.9 \.br\ Unchanged Misc Prescription (Lancets) See instructions Use to check BS daily dx E11.9 \.br\ Unchanged Misc Prescription (Nebulizer Machine) See instructions Moderate persistent asthma Nebulizer Machine \.br\ Unchanged Misc Prescription (Nebulizer Tubing and Mouthpiece Kit) See instructions Moderate persistent asthma Nebulizer Tubing and Mouthpiece Kit \.br\ Unchanged Misc Prescription (Test Strips) See instructions Type 2 diabetes mellitus with morbid obesity Use to test BS daily \.br\ Unchanged montelukast (Singulair 10 mg Tab) 1 Tablets By Mouth Once a day (in the evening) Moderate persistent asthma\.br\ Unchanged pantoprazole (Pantoprazole [address] Tab) 1 Tablets By Mouth Every day\.br\ Unchanged potassium chloride (potassium chloride 20 mEq ER Tab) 1 Tablets By Mouth Every day as needed for PRN Take with Lasix \.br\ Unchanged rosuvastatin (Crestor 40 mg Tab) 1 Tablets By Mouth Every day\.br\ Unchanged spironolactone (spironolactone 25 mg Tab) 1 Tablets By Mouth Every day Duration: 90 Days\.br\ Unchanged tiotropium (Spiriva Respimat 1.25 mcg/ inh inhalation aerosol) 2 Puffs Inhalation Every day\.br\ Unchanged tizanidine (tiZANidine 4 mg Tab) 1 Tablets By Mouth Every 8 hours as needed for Spasm\.br\ Unchanged tramadol (traMADOL 50 mg Tab) 1 Tablets By Mouth Every 6 hours as needed for for pain\.br\ Unchanged trazodone (traZODONE 50 mg Tab) 1 Tablets By Mouth Once a day (at bedtime)\.br\ Allergies\.br\ amLODIPine (Leg Edema)\.br\ lisinopril (Persistent cough, Tongue swelling)\.br\ metFORMIN (Diarrhea)\.br\ Problems\.br\ Ongoing - Any problem that you are currently receiving treatment for.\.br\ Alcohol problem drinking\.br\ Benign hypertension\.br \ Bilateral hip pain\.br\ Bilateral leg edema\.br\ BMI 50.0-59.9, adult\.br\ Chronic insomnia\.br\ Cigarette smoker\.br\ Class 3 severe obesity due to excess calories with serious comorbidity in adult\.br\ Elevated LFTs\.br\ Elevated liver transaminase level\.br\ Encounter for medication management\.br\ Fatty liver\.br\ GA (granuloma annulare)\.br\ GERD (gastroesophagea l reflux disease)\.br\ Heart failure with preserved ejection fraction\.br\ Hepatomegaly\.br \ History of alcohol abuse\.br\ History of colon polyps\.br\ Hypokalemia\.br\ Left hand weakness\.br\ Low vitamin D level\.br\ Marijuana user\.br\ Medication management\.br\ Mixed hyperlipidemia\. br\ Moderate persistent asthma\.br\ Neurogenic claudication\.br \ Obstructive sleep apnea\.br\ Restless leg syndrome\.br\ Right hip pain\.br\ Sciatica\.br\ Seborrheic keratoses\.br\ Severe major depression\.br\ Skin tags, multiple acquired\.br\ Smoker\.br\ Type 2 diabetes mellitus with morbid obesity\.br\ Uterine fibroid\.br\ Historical - Any problem that you are no longer receiving treatment for.\.br\ COPD exacerbation\.br \ Tubular adenoma of colon\.br\ Patient Survey\.br\ You may receive a survey via text or e-mail asking about your office visit. Please share your experience with us by completing your survey. We appreciate your feedback and thank you for choosing us for your care.\.br\ \.br\ [facility] Consent for Treatmenton 06-0 Consent for Treatment [id number] Normal [facility] Ambulatory Visit Summaryon 0 11-25-2023 Ambulatory Visit Summary CARMEN BLEDSOE :1960 Visit Date:11/25/2023 Ambulatory Visit Instructions Your Diagnosis Benign hypertension Hepatomegaly Type 2 diabetes mellitus with morbid obesity Alcohol problem drinking Class 3 severe obesity due to excess calories with serious comorbidity in adult, Morbid (severe) obesity due to excess calories BMI 50.0-59.9, adult Your Care Team Attending Physician - Yocasta MSN, CREDIT COLLECTIONS CLERK-UPPER MARKER, Myron Hamilton Primary Care Physician - Yocasta MSN, CREDIT COLLECTIONS CLERK-Myron VILLATORO This Is Your Medications List tramadol (traMADOL 50 mg Tab) Contact prescribing physician if questions or concerns Misc Prescription (Alcohol wipes) Misc Prescription (Glucometer) Misc Prescription (Lancets) Misc Prescription (Nebulizer Machine) Misc Prescription (Nebulizer Tubing and Mouthpiece Kit) Misc Prescription (Test Strips) albuterol (Ventolin HFA 90 mcg/inh Aerosol-Adpt) albuterol (albuterol 0.083% Inh Rochelle 3 mL) aripiprazole (Abilify 2 mg Tab) cholecalciferol (Vitamin D3 5000 intl units oral capsule) dulaglutide (Trulicity Pen 1.5 mg/0.5 mL subcutaneous solution) empagliflozin (Jardiance 10 mg oral tablet) fluoxetine (FLUoxetine 20 mg Cap) fluticasone-salmetero l (Advair Diskus 100 mcg-50 mcg inhalation powder) furosemide (furosemide 40 mg Tab) glipiZIDE (glipiZIDE 2.5 mg ER Tab) montelukast (Singulair 10 mg Tab) pantoprazole (Pantoprazole [address] Tab) potassium chloride (potassium chloride 20 mEq ER Tab) rosuvastatin (Crestor 40 mg Tab) spironolactone (spironolactone 25 mg Tab) tiotropium (Spiriva Respimat 1.25 mcg/inh inhalation aerosol) tizanidine (tiZANidine 4 mg Tab) trazodone (traZODONE 50 mg Tab) [Image Removed: STOP]Stop taking these medications predniSONE (predniSONE 20 mg Tab) Procedures Performed Colonoscopy (03/17/2020), Eye/lens implant bilat, Knee replacement, L foot bunion/reconstruction . Discharge Vitals Temperature (Temporal Artery) 36 ?C Heart Rate (Peripheral) 89 Respiratory Rate 22 Blood Pressure 138/80 Height 168 cm Height 66 in Weight 141.8 kg Weight 311.96 lb BMI 50.24 What to do next Scheduled Follow-Up Appointments Tuesday 3:15 PM EDT With: Adam SAMPSON, Alirio Hooper Where: [facility] Tuesday 10:30 AM EDT With: Where: [facility] Tuesday 12:00 PM EDT With: Where: [facility] Tuesday 10:45 AM EDT With: Marjan SAMPSON, Walker Pritchett Where: [facility] Normal [address] [place] [address]- \.br\ You Need to Schedule the Following Appointments\.br \ Follow Up with Yocasta SMITH, CREDIT COLLECTIONS CLERK-IRVING, Myron Hamilton When: In 3 months\.br\ Comments:\.br\ chronic care\.br\ Where:\.br\ [facility]\.br\ [place] [address]\.br\ Medications\.br\ What How Much When Why Instructions\.br \ Changed tramadol (traMADOL 50 mg Tab) 1 Tablets By Mouth Every 6 hours as needed for for pain Pickup at [id number]\.br\ Unchanged albuterol (albuterol 0.083% Inh Rochelle 3 mL) 3 Milliliter Inhalation Every 6 hours as needed for Shortness of breath or wheezing Contact prescribing physician if questions or concerns \.br\ Unchanged albuterol (Ventolin HFA 90 mcg/ inh Aerosol-Adpt) 2 Puffs Inhalation Every 6 hours as needed for for wheezing Contact prescribing physician if questions or concerns \.br\ Unchanged aripiprazole (Abilify 2 mg Tab) 1 Tablets By Mouth Every day Contact prescribing physician if questions or concerns \.br\ Unchanged cholecalciferol (Vitamin D3 5000 intl units oral capsule) 1 Capsules By Mouth Every day with food Contact prescribing physician if questions or concerns \.br\ Unchanged dulaglutide (Trulicity Pen 1.5 mg/ 0.5 mL subcutaneous solution) 1.5 Milligram Subcutaneous Every week Contact prescribing physician if questions or concerns \.br\ Unchanged empagliflozin (Jardiance 10 mg oral tablet) 10 Milligram By Mouth Every day Contact prescribing physician if questions or concerns \.br\ Unchanged fluoxetine (FLUoxetine 20 mg Cap) 2 Capsules By Mouth Every day Contact prescribing physician if questions or concerns \.br\ Unchanged fluticasone-salm eterol (Advair Diskus 100 mcg-50 mcg inhalation powder) See instructions Contact prescribing physician if questions or concerns \.br\ Unchanged furosemide (furosemide 40 mg Tab) 1 Tablets By Mouth Every day Contact prescribing physician if questions or concerns \.br\ Unchanged glipiZIDE (glipiZIDE 2.5 mg ER Tab) 1 Tablets By Mouth Every day Contact prescribing physician if questions or concerns \.br\ Unchanged Misc Prescription (Alcohol wipes) See instructions Use to check BS daily dx E11.9 Contact prescribing physician if questions or concerns \.br\ Unchanged Misc Prescription (Glucometer) See instructions Glucometer to test BS TID and PRN dx E11.9 Contact prescribing physician if questions or concerns \.br\ Unchanged Misc Prescription (Lancets) See instructions Use to check BS daily dx E11.9 Contact prescribing physician if questions or concerns \.br\ Unchanged Misc Prescription (Nebulizer Machine) See instructions Moderate persistent asthma Nebulizer Machine Contact prescribing physician if questions or concerns \.br\ Unchanged Misc Prescription (Nebulizer Tubing and Mouthpiece Kit) See instructions Moderate persistent asthma Nebulizer Tubing and Mouthpiece Kit Contact prescribing physician if questions or concerns \.br\ Unchanged Misc Prescription (Test Strips) See instructions Type 2 diabetes mellitus with morbid obesity Use to test BS daily Contact prescribing physician if questions or concerns \.br\ Unchanged montelukast (Singulair 10 mg Tab) 1 Tablets By Mouth Once a day (in the evening) Moderate persistent asthma Contact prescribing physician if questions or concerns \.br\ Unchanged pantoprazole (Pantoprazole [address] Tab) 1 Tablets By Mouth Every day Contact prescribing physician if questions or concerns \.br\ Unchanged potassium chloride (potassium chloride 20 mEq ER Tab) 1 Tablets By Mouth Every day as needed for PRN Take with Lasix Contact prescribing physician if questions or concerns \.br\ Unchanged rosuvastatin (Crestor 40 mg Tab) 1 Tablets By Mouth Every day Contact prescribing physician if questions or concerns \.br\ Unchanged spironolactone (spironolactone 25 mg Tab) 1 Tablets By Mouth Every day Duration: 90 Days Contact prescribing physician if questions or concerns \.br\ Unchanged tiotropium (Spiriva Respimat 1.25 mcg/ inh inhalation aerosol) 2 Puffs Inhalation Every day Contact prescribing physician if questions or concerns \.br\ Unchanged tizanidine (tiZANidine 4 mg Tab) 1 Tablets By Mouth Every 8 hours as needed for Spasm Contact prescribing physician if questions or concerns \.br\ Unchanged trazodone (traZODONE 50 mg Tab) 1 Tablets By Mouth Once a day (at bedtime) Contact prescribing physician if questions or concerns \.br\ Pharmacy Information\.br\ [id number]: [address] [place], [place] [id number] [phone]\.br\ \.br\ What How Much When Comments\.br\ Stop Taking predniSONE (predniSONE 20 mg Tab) 1 Tablets By Mouth As Directed Take three tabs by mouth for one day, then two tabs for one day, then one tab for one day \.br\ Allergies\.br\ amLODIPine (Leg Edema)\.br\ lisinopril (Persistent cough, Tongue swelling)\.br\ metFORMIN (Diarrhea)\.br\ Problems\.br\ Ongoing - Any problem that you are currently receiving treatment for.\.br\ Alcohol problem drinking\.br\ Benign hypertension\.br \ Bilateral leg edema\.br\ BMI 50.0-59.9, adult\.br\ Chronic insomnia\.br\ Cigarette smoker\.br\ Class 3 severe obesity due to excess calories with serious comorbidity in adult\.br\ Elevated LFTs\.br\ Elevated liver transaminase level\.br\ Encounter for medication management\.br\ Fatty liver\.br\ GA (granuloma annulare)\.br\ GERD (gastroesophagea l reflux disease)\.br\ Heart failure with preserved ejection fraction\.br\ Hepatomegaly\.br \ History of alcohol abuse\.br\ History of colon polyps\.br\ Hypokalemia\.br\ Left hand weakness\.br\ Low vitamin D level\.br\ Marijuana user\.br\ Medication management\.br\ Mixed hyperlipidemia\. br\ Moderate persistent asthma\.br\ Neurogenic claudication\.br \ Obstructive sleep apnea\.br\ Restless leg syndrome\.br\ Right hip pain\.br\ Sciatica\.br\ Seborrheic keratoses\.br\ Severe major depression\.br\ Skin tags, multiple acquired\.br\ Smoker\.br\ Type 2 diabetes mellitus with morbid obesity\.br\ Uterine fibroid\.br\ Historical - Any problem that you are no longer receiving treatment for.\.br\ COPD exacerbation\.br \ Tubular adenoma of colon\.br\ Patient Survey\.br\ You may receive a survey via text or e-mail asking about your office visit. Please share your experience with us by completing your survey. We appreciate your feedback and thank you for choosing us for your care.\.br\ Education Materials\.br\ Hepatomegaly\.br \ \.br\ Hepatomegaly is when a person's liver is larger than normal. Some health problems can cause the liver to get bigger. Some people may have an enlarged liver but do not know it.\.br\ What are the causes?\.br\ This condition may be caused by:\.br\ ? \.br\ Cirrhosis. This is long-term (chronic) liver damage that is often caused by drinking too much alcohol. Cirrhosis is also caused by certain diseases, infection, and some medicines.\.br\ ? \.br\ Hepatitis. This is an infection of the liver.\.br\ ? \.br\ Fatty liver disease.\.br\ ? \.br\ Conditions that cause minerals or trace elements to accumulate in the liver, such as Eliezer disease.\.br\ ? \.br\ Cancer. The disease may start in the liver or start somewhere else in the body and spread to the liver.\.br\ ? \.br\ Heart or blood vessel disease. These can cause hepatomegaly if blood backs up into the liver.\.br\ In some cases, the cause of the condition is not known.\.br\ What increases the risk?\.br\ You are more likely to develop this condition if you:\.br\ ? \.br\ Drink too much alcohol.\.br\ ? \.br\ Have diabetes.\.br\ ? \.br\ Are obese.\.br\ ? \.br\ Are exposed to hepa [facility] Family Medicine Office/Clini c Noteon 11-25-2023 Family Medicine Office/Clinic Note Chief Complaint Here for 1 month follow up HPI Staff Patient is here for follow up on hypertension. How often are you checking your blood pressure? daily What are your average readings? doesnt have with her Are you compliant with your diet? yes Do you exercise? no Are you compliant with your medications? yes Are you having difficulty affording your medications? no Do you have side effects from the medication? no Do you have any of the following symptoms? Chest Pain? no Palpitations? no CARMONA/SOB? no Headache? no Peripheral Edema? no Light Headedness? no Patient is here for follow up on Diabetes. How often are you checking your blood sugars? What are your average readings? Are you compliant with your diet? Do you exercise? Are you compliant with your medications? Yes Last A1c - Hgb A1C %: 6.3 % High (08/20/22 15:02:00) Eye Exam? Foot Exam? Do you have any of the following symptoms? Vision problems? No GI-Nausea/committing/ bloating? No Lightheadedness? No Paresthesias, Ulcerations or sores? No History of Present Illness a 63-year-old female who presents for a 1-month chronic care follow-up. HPI staff / Chief Complaint confirmed with the patient Social: The patient is _ ; _ since _ The patient is _ currently working; _ years The patient has _ child(jesus) _ grandchild(jesus) _ great grandchild(jesus) Screening: Colon Cancer screening: _ with a _ year f/u recommended; this patient does _ have family history of colon cancer Breast cancer screening: _ ; this patient does _ have a family history of breast cancer Pap smear: _ DEXA: _ Labs: 08/10/2023 at [facility] Diabetes/ prediabetes: Eye exam: _ done by _ Foot exam: 08/10/2023 done by Omari VILLATORO A1c: Hgb A1C %: 6.3 % High (08/20/22 15:02:00) Smokers/ former smokers: Low dose lung CT: _ List of Providers: Length Control Tester: DR Ramirez Care Clinician: Dr Phillip Orthopaedics: Dr Martinez LABS Cr/eGFR: eGFR: >60 (08/05/2023) Creatinine: 0.6 mg/dL (08/10/2023) A1c: Hgb A1C %: 5.4% (08/10/2023) TSH: TSH: 4.64 mcIU/mL (08/20/22 15:02:00) Vit D: No qualifying data available. LDL: LDL Direct: 67 mg/dL (08/10/2023) Lipids: Chol: 206 mg/dL (08/10/2023) HDL: 95 mg/dL (08/10/2023) LDL Direct: 67 mg/dL (08/10/2023) Microalbumin: U Microalb: >12 mcg/mL (08/10/2023) Future Appointments [facility] Appt. Date: 12/06/2023 3:15 PM Scheduled Provider: Adam SAMPSON, Alirio Hooper [address] [place] [address], [address] Fax: [phone] [address] [place] [address], [address] Phone: -- Fax: -- [address] [place] [address], [address] Phone: -- Fax: -- [facility] Appt. Date: 12/23/2023 10:30 AM Scheduled Provider: ENDO 3 FT Phone: -- Fax: -- [facility] Appt. Date: 12/23/2023 12:00 PM Scheduled Provider: ENDO 1 FT Phone: -- Fax: -- [facility] App[facility]. Date: 01/13/2024 10:45 AM Scheduled Provider: Walker Phillip MD [address] [place] [address], [address], [address] Phone: [phone] Fax: [phone] The patient has transitioned to using a scooter-like walker instead of a wheelchair. She has multiple appointments scheduled, including scopes and a visit with the GI doctor in 12/2023. She is scheduled for a liver ultrasound and a colonoscopy in 12/2023. She requests a refill for tramadol 50 mg, originally prescribed by Dr. Menendez, an orthopedic surgeon during her visit on 11/21/2023. She adheres to a medication regimen every 6 hours, resulting in partial alleviation of symptoms, but not achieving complete relief. She is currently working on losing weight to alleviate stress on the knees and hips. The patient reports minimal physical activity, primarily involving going up and down the steps to access the laundry room and her house. She mentions being able to descend the steps without difficulty but struggles slightly when ascending. However, she emphasized that she is not sedentary and does not spend much time sitting around at home. She has an appointment with Dr. Menendez, who subsequently ordered a back and hip MRI. The patient will schedule an appointment with him after completing the MRI. The patient reports a significant weight loss of 40 pounds since 10/11/2023. She denies any respiratory issues, including an absence of increased shortness of breath, and no signs of lower extremity edema. She attributes the edema in her lower extremities to alcohol consumption. She has a significant weight loss, going from 350 pounds to 311 pounds. She has been engaging in mindful eating habits and making significant dietary changes by eliminating bread and potatoes from her diet, as well as a reduction in her sodium intake. The patient reports being sober for a period of 51 days and expresses commitment to maintaining sobriety long-term. She expresses fear of consuming alcohol due to past negative relapse experience (more content not included)... Normal [facility] Comment on above: Result Comment: Elec tronically Signed By: Yocasta SMITH, CREDIT COLLECTIONS CLERK- Myron VILLATORO\.br\Date and Time Signed: 11/25/23 20:36 EDT\.br\Electronically Co-Signed By: Seven Ruelas\.br\Date and Time Co-Signed: 11/25/23 16:37 EDT Patient Educationon 11-24-19 Patient Education Hepatomegaly Hepatomegaly is when a person's liver is larger than normal. Some health problems can cause the liver to get bigger. Some people may have an enlarged liver but do not know it. What are the causes? This condition may be caused by: ? Cirrhosis. This is long-term (chronic) liver damage that is often caused by drinking too much alcohol. Cirrhosis is also caused by certain diseases, infection, and some medicines. ? Hepatitis. This is an infection of the liver. ? Fatty liver disease. ? Conditions that cause minerals or trace elements to accumulate in the liver, such as Eliezer disease. ? Cancer. The disease may start in the liver or start somewhere else in the body and spread to the liver. ? Heart or blood vessel disease. These can cause hepatomegaly if blood backs up into the liver. In some cases, the cause of the condition is not known. What increases the risk? You are more likely to develop this condition if you: ? Drink too much alcohol. ? Have diabetes. ? Are obese. ? Are exposed to hepatitis B or hepatitis C. What are the signs or symptoms? Symptoms of this condition include: ? Abdominal pain on the right side. ? Fatigue. ? Loss of appetite. ? Nausea. ? Vomiting. ? The skin or the white parts of your eyes turning yellow (jaundice). In some cases, there are no symptoms of this condition. How is this diagnosed? This condition may be diagnosed with your medical history and a physical exam. Your health care provider may press on the right side of your abdomen to feel your liver. This is a way to check if the edge of your liver sticks out below your rib cage. You may also have other tests, including: ? Blood tests. These tests check whether your liver is working properly. Tests may also check for infection. ? Imaging tests, such as: ? CT scan. ? MRI. ? Ultrasound. ? Liver biopsy. For this test, a small sample of liver tissue is removed to be looked at under a microscope. How is this treated? Treatment for hepatomegaly depends on the cause of your condition. Follow these instructions at home: What you need to do at home depends on what is causing the condition. You may be asked to follow these instructions. Medicines ? Take [id number] and prescription medicines only as told by your health care provider. ? Do not start taking any new medicine unless your health care provider has approved. These include [id number] medicines, vitamins, herbs, and supplements. Some of these can hurt your liver. General instructions ? Maintain a healthy weight. ? Follow a healthy diet. Eat plenty of fruits, vegetables, and whole grains. ? Do not drink alcohol. ? Do not use any products that contain nicotine or tobacco. These products include cigarettes, chewing tobacco, and vaping devices, such as e-cigarettes. If you need help quitting, ask your health care provider. ? Keep all follow-up visits. This is important. Contact a health care provider if: ? You have increased pain in your abdomen. ? You have persistent vomiting. ? You have new symptoms. ? Your symptoms get worse. Get help right away if: ? You have bright red blood in your vomit, or your vomit looks like coffee grounds. ? You have chest pain. ? You have trouble breathing. These symptoms may be an emergency. Get help right away. Call 911. ? Do not wait to see if the symptoms will go away. ? Do not drive yourself to the hospital. Summary ? Hepatomegaly is when a person's liver is larger than normal. ? Symptoms of this condition include pain in the abdomen, fatigue, loss of appetite, nausea, vomiting, and jaundice. ? This condition may be diagnosed with your medical history, a physical exam, and tests. ? Follow instructions about how to care for yourself at home. ? Get help right away if you vomit blood, have chest pain, or have trouble breathing. This information is not intended to replace advice given to you by your health care provider. Make sure you discuss any questions you have with your health care provider. Document Revised: 05/19/2022 Document Reviewed: 05/19/2022 [employer] Patient Education ? 2022 [employer]. Endocrinology Type 2 Diabetes Mellitus, Self-Care, Adult Caring for yourself after you have been diagnosed with type 2 diabetes (type 2 diabetes mellitus) means keeping your blood sugar (glucose) under control with a balance of: ? Nutrition. ? Exercise. ? Lifestyle changes. ? Medicines or insulin, if needed. ? Support from your team of health care providers and others. What are the risks? Having type 2 diabetes can put you at risk for other long-term (chronic) conditions, such as heart disease and kidney disease. Your health care provider may prescribe medicines to help prevent complications from diabetes. How to monitor your blood glucose ? Check your blood glucose every (more content not included)... Normal [facility] Basic Metabolic Profon 11-16 Anion gap [Moles/Vol] 10 mmol/L Normal - [facility] Comment on above: Performed By: #### B MP, BNP ####[facility] [address] [place] [address] Lab Director: Yury Caba MD BUN/CRE Ratio 20 Normal - [facility] Comment on above: Performed By: #### B MP, BNP ####[facility] [address] [place] [address] lab Director: Yury Caba MD Calcium [Mass/Vol] 9.2 mg/dL Normal 8.6-10.4 [facility] Comment on above: Performed By: #### B MP, BNP ####[facility] [address] [place] [address] Lab Director: Yury Caba MD Chloride [Moles/Vol] 99 mmol/L Normal 98-107 [facility] Comment on above: Performed By: #### B MP, BNP ####[facility] [address] [place] [address] lab Director: Yury Caba MD CO2 [Moles/Vol] 24 mmol/L Normal 20-[address] [facility] Comment on above: Performed By: #### B MP, BNP ####[facility] [address] [place] [address] lab Director: Yury Caba MD Creatinine [Mass/Vol] 0.7 mg/dL Normal 0.5-0.9 [facility] Comment on above: Performed By: #### B MP, BNP ####[facility] [address] [place] [address] lab Director: Yury Caba MD GFR/1.73 sq M.predicted among non-blacks MDRD (S/P/Bld) [Vol rate/Area] mL/min/{1.73_m2} Normal >60 [facility] Comment on above: Result Comment: These results are not intended for use in patients <18 years of age. eGFR results are calculated without a race factor using the 2020 CKD-EPI equation. Careful clinical correlation is recommended, particularly when comparing to results calculated using previous equations. The CKD-EPI equation is less accurate in patients with extremes of muscle mass, extra-renal metabolism of creatine, excessive creatine ingestion, or following therapy that affects renal tubular secretion. Performed By: #### B MP, BNP ####[facility] [address] [place] [address] lab Director: Yury Caba MD Glucose [Mass/Vol] 107 mg/dL High 70-99 [facility] Comment on above: Performed By: #### B MP, BNP ####[facility] [address] [place] [address] Lab Director: Yury Caba MD Potassium [Moles/Vol] 4.7 mmol/L Normal 3.7-5.3 [facility] Comment on above: Performed By: #### B MP, BNP ####[facility] [address] [place] [address] Lab Director: Yury Caba MD Sodium [Moles/Vol] 133 mmol/L Low 135-144 [facility] Comment on above: Performed By: #### B MP, BNP ####[facility] [address] [place] [address] lab Director: Yury Caba MD Urea nitrogen [Mass/Vol] 14 mg/dL Normal 8-23 [facility] Comment on above: Performed By: #### B MP, BNP ####[facility] [address] [place] [address] Lab Director: Yury Caba MD Brain Natri. Peptideon 11-16 Natriuretic peptide B (Bld) [Mass/Vol] 164 pg/mL Normal <300 [facility] Comment on above: Result Comment: An age-independent cutoff point of 300 pg/ml has a 98% negative predictive value excluding acute heart failure. Performed By: #### B MP, BNP ####[facility] [address] [place], [place] [phone] Director: Yury Caba MD Outside [facility]son 11-17-2023 Outside Labs [id number] .00TIFF Normal [facility] Consent for Treatmenton Consent for Treatment [id number] .00TIFF Normal [facility] Consent for Procedure/Surger yon 11-04-2023 Consent for Procedure/Surgery [id number] .00TIFF Normal [facility] FL ARTHR/ASP/INJ MAJOR JT/BU RSA RT WO USon 11-04-2023 FL ARTHR/ASP/INJ MAJOR JT/BURSA RT WO US Begin Addendum #1 FLUORO DOSE: 84. 497 mGy Reference air kerma (Ka,r) Interpreted by: Casa Minor Jr., MD Signed by: Casa Minor Jr., MD 11/04/23 Edited Result - FINAL Normal [facility] FL ARTHROGRAM RIGHT HIP S AN D Ion 11-04-2023 FL ARTHROGRAM RIGHT HIP S AND I Begin Addendum #1 FLUORO DOSE: 84. 497 mGy Reference air kerma (Ka,r) Interpreted by: Casa Minor Jr., MD Signed by: Casa Minor Jr., MD 11/04/23 Edited Result - FINAL Normal [facility] FL GUIDED NEEDLE PLACEMENTon 11-04-2023 FL GUIDED NEEDLE PLACEMENT Begin Addendum #1 FLUORO DOSE: 84. 497 mGy Reference air kerma (Ka,r) Interpreted by: Casa Minor Jr., MD Signed by: Casa Minor Jr., MD 11/04/23 Edited Result - FINAL [facility] Ambulatory Visit Summaryon 0 11-02-2023 Ambulatory Visit Summary CARMEN BLEDSOE :1960 Visit Date:11/02/2023 Ambulatory Visit Instructions Your Diagnosis Elevated LFTs Hepatomegaly History of alcohol abuse History of colon polyps Smoker Your Care Team Attending Physician - Marjan SAMPSON, Walker Pritchett Primary Care Physician - Yocasta MSN, CREDIT COLLECTIONS CLERK-UPPER MARKER, Mryon Hamilton This Is Your Medications List Contact prescribing physician if questions or concerns Misc Prescription (Alcohol wipes) Misc Prescription (Glucometer) Misc Prescription (Lancets) Misc Prescription (Nebulizer Machine) Misc Prescription (Nebulizer Tubing and Mouthpiece Kit) Misc Prescription (Test Strips) albuterol (Ventolin HFA 90 mcg/inh Aerosol-Adpt) albuterol (albuterol 0.083% Inh Rochelle 3 mL) aripiprazole (Abilify 2 mg Tab) cholecalciferol (Vitamin D3 5000 intl units oral capsule) dulaglutide (Trulicity Pen 1.5 mg/0.5 mL subcutaneous solution) empagliflozin (Jardiance 10 mg oral tablet) fluoxetine (FLUoxetine 20 mg Cap) fluticasone-salmetero l (Advair Diskus 100 mcg-50 mcg inhalation powder) furosemide (furosemide 40 mg Tab) glipiZIDE (glipiZIDE 2.5 mg ER Tab) montelukast (Singulair 10 mg Tab) pantoprazole (Pantoprazole [address] Tab) potassium chloride (potassium chloride 20 mEq ER Tab) predniSONE (predniSONE 20 mg Tab) rosuvastatin (Crestor 40 mg Tab) spironolactone (spironolactone 25 mg Tab) tiotropium (Spiriva Respimat 1.25 mcg/inh inhalation aerosol) tizanidine (tiZANidine 4 mg Tab) trazodone (traZODONE 50 mg Tab) Procedures Performed Colonoscopy (03/17/2020), Eye/lens implant bilat, Knee replacement, L foot bunion/reconstruction . Discharge Vitals Heart Rate (Peripheral) 78 Respiratory Rate 18 Blood Pressure 118/60 Height 168 cm Height 66 in What to do next Scheduled Follow-Up Appointments Tuesday 3:00 PM EDT With: Where: [facility] 2023 3:00 PM EDT With: Where: [facility] Invalid Interpretation Code [address] [place] [address]- \.br\ Tuesday 3:15 PM EDT \.br\ With: Alirio Ramirez MD\.br\ Where: [facility]\.br\ Tuesday 10:30 AM EDT \.br\ With:\.br\ [facility]br\ Tuesday 12:00 PM EDT \.br\ With:\.br\ [facility]\.br\ Tuesday 10:45 AM EDT \.br\ With: Marjan SAMPSON, Walker Pritchett\.br\ Where: [facility] Gastroenterology Office/Clin ic Noteon 11-02-2023 Gastroenterology Office/Clinic Note Chief Complaint elevated LFT's, hepatomegaly, hx ETOH abuse HPI Staff Patient is a 62 year old female who was referred by Yocasta for elevated LFT's and hepatomegaly. Hx alcohol abuse, current smoker (cigarettes), marijuana user, hx of pain pill use (stopped at age 52). Father had liver cancer. Mother had stomach cancer. No fam. hx colon cancer. Denies blood thinner use. liver 08/24/23 @ [facility]: IMPRESSION: Hepatomegaly and hepatic steatosis. EGD/Colon 03/17/20 @ [facility]: POSTOPERATIVE DIAGNOSES: 1. Antral gastritis. 2. Pedunculated polyp, proximal ascending colon, greater than 1 cm in diameter. 3. Small pedunculated polyps x3 (ascending x2, transverse x1). 4. Sessile polyps x4 (transverse x1, descending x1, sigmoid x2). Pathology: -- Diagnosis -- 1. ANTRUM BIOPSIES: MODERATE CHRONIC INACTIVE GASTRITIS. NEGATIVE FOR HELICOBACTER PYLORI ON IMMUNOSTAIN. 2. TRANSVERSE COLON POLYP BIOPSY: TUBULAR ADENOMA. 3. PROXIMAL AND ASCENDING COLON POLYP BIOPSY: TUBULAR ADENOMA. 4. DESCENDING COLON POLYP BIOPSY: TUBULAR ADENOMA. 5. SIGMOID COLON POLYPSX2: TUBULAR ADENOMAS. 6. ASCENDING COLON POLYP BIOPSY: TUBULAR ADENOMA. CBC/CMP 08/10/23 @ [facility]: RBC: (L) 3.78 MCV (H) 102.6 Alk phos: (H) 169 ALT: (H) 84 AST (H) 83 History of Present Illness stopped drinking 4 weeks ago, asymptomatic Review of Systems PHQ Score Initial Depression Screen Score: 0 SCORE Physical Exam Vitals & Measurements HR: 78(Peripheral) RR: 18 BP: 118/60 HT: 66 in HT: 168 cm General: in Nad Abdomen: Soft, NTND Assessment/Plan 1. Elevated LFTs (R79.89: Other specified abnormal findings of blood chemistry) Mild elevation, AST more than ALT, pattern suggestive of alcohol-related, hepatomegaly is likely due to fatty liver due to alcohol abuse, although she has also high risk for nonalcoholic fatty liver disease with obesity and diabetes Congratulated for alcohol abstinence Will get chronic liver disease panel Ordered: [id number] KIM w/Reflex if POS Antimitochondrial Antibody, Quantitative Colonoscopy (Hospital Procedure) Comprehensive Metabolic Panel Current tobacco smoker 1034F E&M of New Patient Moderate 45-59 Min 94330 EGD Endoscopy (Hospital Procedure) Ferritin Fibroscan (Hospital Procedure) HCV Antibody RFX to Quant PCR Hep B Core Ab, Tot Hepatitis A Virus (HAV) Antibody, Total Hepatitis B Surface Antibody Hepatitis B Surface Antigen IgG, Quant. Iron Level Most recent diastolic blood pressure <80 mm Hg 3078F PT Smooth Muscle Antibody Screen Systolic BP <130 mm Hg (Most Recent) 3074F TIBC Calculated 2. Hepatomegaly (R16.0: Hepatomegaly, not elsewhere classified) Ordered: Colonoscopy (Hospital Procedure) E&M of New Patient Moderate 45-59 Min 06434 EGD Endoscopy (Hospital Procedure) 3. History of alcohol abuse (F10.11: Alcohol abuse, in remission) Ordered: Colonoscopy (Hospital Procedure) E&M of New Patient Moderate 45-59 Min 66080 EGD Endoscopy (Hospital Procedure) 4. History of colon polyps (Z86.010: Personal history of colonic polyps) Had multiple TA's 2019, repeat colonoscopy Ordered: Colonoscopy (Hospital Procedure) E&M of New Patient Moderate 45-59 Min 98299 EGD Endoscopy (Hospital Procedure) 5. Smoker (F17.200: Nicotine dependence, unspecified, uncomplicated) Consulted Ordered: Colonoscopy (Hospital Procedure) E&M of New Patient Moderate 45-59 Min 78670 EGD Endoscopy (Hospital Procedure) Follow-up No qualifying data available Problem List/Past Medical History Ongoing Alcohol problem drinking Benign hypertension Bilateral leg edema BMI 50.0-59.9, adult Chronic insomnia Cigarette smoker Class 3 severe obesity due to excess calories with serious comorbidity in adult Elevated LFTs Elevated liver transaminase level Encounter for medication management Fatty liver GA (granuloma annulare) GERD (gastroesophageal reflux disease) Heart failure with preserved ejection fraction Hepatomegaly History of alcohol abuse History of colon polyps Hypokalemia Left hand weakness Low vitamin D level Marijuana user Medication management Mixed hyperlipidemia Moderate persistent asthma Neurogenic claudication Obstructive sleep apnea Restless leg syndrome Right hip pain Sciatica Seborrheic keratoses Severe major depression Skin tags, multiple acquired Smoker Type 2 diabetes mellitus with morbid obesity Uterine fibroid Historical COPD exacerbation Tubular adenoma of colon Procedure/Surgical History Colonoscopy (03/17/2020), Eye/lens implant bilat, Knee replacement, L foot bunion/reconstruction . Medications Abilify 2 mg Tab, 2 mg= 1 tab(s), Oral, Daily, 3 refills Advair Diskus 100 mcg-50 mcg inhalation powder, See Instructions albuterol 0.083% Inh Rochelle 3 mL, 2.5 mg= 3 mL, Inhalation, q6hr, PRN, 1 refills Alcohol wipes, See Instructions, 3 refills Crestor 40 mg Tab, 4 (more content not included)... Normal [facility] Comment on above: Result Comment: Elec tronically Signed By: Marjan SAMPSON, Walker Pritchett\.br\Date and Time Signed: 11/02/23 11:03 EDT Physician Orderon 10-28-2023 Physician Order [id number]# 1.00TIFF [facility] Family Medicine Office/Clini c Noteon 10-27-2023 Family Medicine Office/Clinic Note Chief Complaint Pt presents for 2 week f/u Valentino leg swelling. No concerns History of Present Illness a 62-year-old female presenting today for a follow-up for dyspnea and bilateral lower extremity edema. Her sister accompanies her to this appointment. HPI staff / Chief Complaint confirmed with the patient Social: The patient is Not ; The patient is _ currently working; _ years The patient has _ child(jesus) _ grandchild(jesus) _ great grandchild(jesus) Screening: Colon Cancer screening: _ with a _ year f/u recommended; this patient does _ have family history of colon cancer Breast cancer screening: _ ; this patient does _ have a family history of breast cancer Pap smear: years DEXA: NA Labs: 2022 Diabetes/ prediabetes: Eye exam: _ done by _ Foot exam: 08/10/2023 done by Omari VILLATORO A1c: Hgb A1C %: 6.3 % High (08/20/22 15:02:00) Smokers/ former smokers: Low dose lung CT: _ List of Providers: Length Control Tester: Dr Ramirez Gastrointestinal: Dr Phillip LABS Cr/eGFR: eGFR: >60 (10/06/22 09:23:00) Creatinine: 0.8 mg/dL (10/06/22 09:23:00) A1c: Hgb A1C %: 6.3 % High (08/20/22 15:02:00) TSH: TSH: 4.64 mcIU/mL (08/20/22 15:02:00) Vit D: No qualifying data available. LDL: LDL Direct: 61 mg/dL (08/20/22 15:02:00) Lipids: Chol: 139 mg/dL (08/20/22 15:02:00) HDL: 61 mg/dL (08/20/22 15:02:00) LDL Direct: 61 mg/dL (08/20/22 15:02:00) Tri mg/dL (08/20/22 15:02:00) VLDL: 28 mg/dL (08/20/22 15:02:00) Microalbumin: U Microalb: 4.6 mcg/mL (08/20/22 15:02:00) Future Appointments [facility] Appt. Date: 11/02/2023 10:30 AM Scheduled Provider: Walker Phillip MD [address] [facility] [address] [place], [address] Phone: [phone] Fax: [phone] [facility] SERGEI Yarbrough Appt. Date: 11/10/2023 3:00 PM Scheduled Provider: SERGEI Yarbrough Nurse Phone: -- Fax: -- .[facility] Appt. Date: 12/06/2023 3:15 PM Scheduled Provider: Adam SAMPSON, Alirio Hooper [address] [place], [address] Fax: [phone] She admitted that she relapsed on her drinking and started drinking heavy on the rum after being sober. States after going to the ER and having a health scare of the heart failure and lower extremity edema and difficulty breathing she has since stopped. Still continues to smoke. States the edema in her legs have since improved. Still feels weak but declines physical therapy. Sisters questioning alcohol rehab or even an AA meeting, patient declines. States she has gotten rid of all of her alcohol out of her house and she is not hiding any bottles anywhere. She is aware that her drinking is what is put her in the situation she is in now. Does have a appointment with the GI doctor up at [facility] for her hepatomegaly and elevated liver. She is due for her colonoscopy, and she is well aware that the GI doctor will probably have her do 1 and she is okay with that. States what ever she needs to do. Still becomes short of breath when ambulating longer distances. Did use the wheelchair to get into the office today Review of Systems PHQ Score Initial Depression Screen Score: 1 SCORE Negative as stated in the HPI. Physical Exam Vitals & Measurements HR: 77(Peripheral) RR: 16 BP: 122/78 SpO2: 99% HT: 66 in HT: 168 cm WT: 148.3 kg WT: 326.26 lb BMI: 52.54 Constitutional: Well-groomed, well-nourished, no signs of acute distress. HEENT: Head normocephalic, sclera is clear. Cardiothoracic: Heart rate and rhythm is regular strong, normal S1 and S2. No murmurs, rubs, or bruits auscultated. Lower extremity edema +1., peripheral pulses +2 Respiratory: Expiratory wheezes noted in the lungs. Respirations regular nonlabored. Abdomen/GI: Abdomen soft nondistended. Active bowel sounds x 4. Musculoskeletal: Gait is steady but weak, full range of motion. Wheelchair used in the office. Integument: No rashes or lesions noted to the exposed skin. Psychiatric: Alert and oriented x 3, pleasant, no mood changes. Assessment/Plan 1. Heart failure with preserved ejection fraction (I50.30: Unspecified diastolic (congestive) heart failure) Does follow-up with Dr. Ramirez in the [place] office. Has been on her Lasix and spironolactone. At her last visit she informing that she was out of her spironolactone so she was just taking the Lasix. The ER doctor had her double up on the Lasix. I did send in for refill on this proctoscopy on the last visit. Overall the swelling has come down her legs. Breathing seems to be better as well. She is following up with Dr. Ramirez in 6 weeks. Will continue to follow his regimen. 2. Bilateral leg edema (R60.0: Localized edema) Lower extremity edema has improved, inform her she still has her compression stockings at home I will start wearing them since her legs are down that will help keep the edema down as well. Continue taking the Lasix and spironolactone as prescribed. If she needs a refill she needs to let the office (more content not included)... Normal [facility] Comment on above: Result Comment: Elec tronically Signed By: Yocasta SMITH, Myron MUÑOZ CNP\.br\Date and Time Signed: 10/27/23 08:09 EDT\.br\Electronically Co-Signed By: Safia Greenberg\.br\Date and Time Co-Signed: 10/26/23 16:02 EDT Ambulatory Visit Summaryon 0 10-26-2023 Ambulatory Visit Summary CARMEN BLEDSOE :1960 Visit Date:10/26/2023 Ambulatory Visit Instructions Your Diagnosis Heart failure with preserved ejection fraction Bilateral leg edema Alcohol problem drinking Class 3 severe obesity due to excess calories with serious comorbidity in adult BMI 50.0-59.9, adult Lipid screening Your Care Team Attending Physician - Yocasta SMITH, Myron ESPINO Primary Care Physician - Yocasta SMITH, Myron ESPINO This Is Your Medications List Misc Prescription (Alcohol wipes) Misc Prescription (Glucometer) Misc Prescription (Lancets) Misc Prescription (Nebulizer Machine) Misc Prescription (Nebulizer Tubing and Mouthpiece Kit) Misc Prescription (Test Strips) albuterol (Ventolin HFA 90 mcg/inh Aerosol-Adpt) albuterol (albuterol 0.083% Inh Rochelle 3 mL) aripiprazole (Abilify 2 mg Tab) cholecalciferol (Vitamin D3 5000 intl units oral capsule) dulaglutide (Trulicity Pen 1.5 mg/0.5 mL subcutaneous solution) empagliflozin (Jardiance 10 mg oral tablet) fluoxetine (FLUoxetine 20 mg Cap) fluticasone-salmetero l (Advair Diskus 100 mcg-50 mcg inhalation powder) furosemide (furosemide 40 mg Tab) glipiZIDE (glipiZIDE 2.5 mg ER Tab) montelukast (Singulair 10 mg Tab) pantoprazole (Pantoprazole [address] Tab) potassium chloride (potassium chloride 20 mEq ER Tab) predniSONE (predniSONE 20 mg Tab) rosuvastatin (Crestor 40 mg Tab) spironolactone (spironolactone 25 mg Tab) tiotropium (Spiriva Respimat 1.25 mcg/inh inhalation aerosol) tizanidine (tiZANidine 4 mg Tab) trazodone (traZODONE 50 mg Tab) Procedures Performed Colonoscopy (03/17/2020), Eye/lens implant bilat, Knee replacement, L foot bunion/reconstruction . Discharge Vitals Heart Rate (Peripheral) 77 Respiratory Rate 16 Blood Pressure 122/78 Height 168 cm Height 66 in Weight 148.3 kg Weight 326.26 lb BMI 52.54 What to do next Scheduled Follow-Up Appointments Tuesday 10:30 AM EDT With: Marjan SAMPSON, Walker Pritchett Where: [facility] Invalid Interpretation Code [address] [place] [address]- \.br\ Tuesday 2:40 PM EDT \.br\ With: Yocasta SMITH, CREDIT COLLECTIONS CLERK-UPPER MARKER, Myron Hamilton\.br\ Where: [facility] Insurance Correspondenceon 0 10-26-2023 Insurance Correspondence [id number]# 1.00TIFF [facility] Patient Educationon 10-26-19 24 Patient Education Cardiovascular Heart Failure, Self-Care Heart failure is a serious condition. The following information explains the things you need to do to take care of yourself after a heart failure diagnosis. You may be asked to change your diet, take certain medicines, and make other lifestyle changes in order to stay as healthy as possible. Your health care provider may also give you more specific instructions. If you have problems or questions, contact your health care provider. What are the risks? Having heart failure puts you at higher risk for certain problems. These problems can get worse if you do not take good care of yourself. Problems may include: ? Damage to the kidneys, liver, or lungs. ? Malnutrition. ? Abnormal heart rhythms. ? Blood clotting issues that could cause a stroke. Supplies needed: ? Scale for monitoring weight. ? Blood pressure monitor. ? Notebook. ? Medicines. How to care for yourself when you have heart failure Medicines Take mtnh-bep-rtaxayy and prescription medicines only as told by your health care provider. Medicines reduce the workload of your heart, slow the progression of heart failure, and improve symptoms. Take your medicines every day. ? Do not stop taking your medicine unless your health care provider tells you to do so. ? Do not skip any dose of medicine. ? Refill your prescriptions before you run out of medicine. ? Talk with your health care provider if you cannot afford your medicines. Eating and drinking ? Eat heart-healthy foods. Talk with a dietitian to make an eating plan that is right for you. ? Limit salt (sodium) if told by your health care provider. Sodium restriction may reduce symptoms of heart failure. Ask a dietitian to recommend heart-healthy seasonings. ? Use healthy cooking methods instead of frying. Healthy methods include roasting, grilling, broiling, baking, poaching, steaming, and stir-frying. ? Choose foods that contain no trans fat and are low in saturated fat and cholesterol. Healthy choices include fresh or frozen fruits and vegetables, fish, lean meats, legumes, fat-free or low-fat dairy products, and whole-grain or high-fiber foods. ? Limit your fluid intake, if directed by your health care provider. Fluid restriction may reduce symptoms of heart failure. Alcohol use ? Do not drink alcohol if: ? Your health care provider tells you not to drink. ? Your heart was damaged by alcohol, or you have severe heart failure. ? You are , may be , or are planning to become . ? If you drink alcohol: ? Limit how much you have to: ? 0?1 drink a day for women. ? 0?2 drinks a day for men. ? Know how much alcohol is in your drink. In the [place] one drink equals one 12 oz bottle of beer (355 mL), one 5 oz glass of wine (148 mL), or one 1? oz glass of hard liquor (44 mL). Lifestyle ? Do not use any products that contain nicotine or tobacco. These products include cigarettes, chewing tobacco, and vaping devices, such as e-cigarettes. If you need help quitting, ask your health care provider. ? Do not use nicotine gum or patches before talking to your health care provider. ? Do not use illegal drugs. ? Work with your health care provider to safely reach the right body weight. ? Do physical activity if told by your health care provider. Talk to your health care provider before you begin an exercise if: ? You are an older adult. ? You have severe heart failure. ? Learn to manage stress. If you need help to do this, ask your health care provider. ? Participate in or seek physical rehabilitation as needed to keep or improve your independence and quality of life. ? Participate in a cardiac rehabilitation program, which is a treatment program to improve your health and well-being through exercise training, education, and counseling. ? Plan rest periods when you get tired. Monitoring important information ? Weigh yourself every day. This will help you to notice if too much fluid is building up in your body. ? Weigh yourself every morning after you urinate and before you eat breakfast. ? Wear the same amount of clothing each time you weigh yourself. ? Record your daily weight. Provide your health care provider with your weight record. ? Monitor and record your pulse and blood pressure as told by your health care provider. Dealing with extreme temperatures ? If the weather is extremely hot: ? Avoid vigorous physical activity. ? Use air conditioning or fans, or find a cooler location. ? Avoid caffeine and alcohol. ? Wear loose-fitting, lightweight, and light-colored clothing. ? If the weather is extremely cold: ? Avoid vigorous activity. ? Layer your clothes. ? Wear mittens or gloves, a hat, and a face covering when you go outside. ? Avoid alcohol. Follow these instructions at home: ? Stay up to date with vaccines. Pneu (more content not included)... Normal [facility] Ambulatory Visit Summaryon 0 10-25-2023 Ambulatory Visit Summary CARMEN BLEDSOE :1960 Visit Date:10/25/2023 Ambulatory Visit Instructions Your Diagnosis Benign hypertension Mixed hyperlipidemia Bilateral leg edema Your Care Team Attending Physician - Adam SAMPSON, Alirio Briggs. Primary Care Physician - Yocasta MSN, CREDIT COLLECTIONS CLERK-UPPER MARKER, Myron Hamilton Referring Physician - NONE, XXXX This Is Your Medications List Misc Prescription (Alcohol wipes) Misc Prescription (Glucometer) Misc Prescription (Lancets) Misc Prescription (Nebulizer Machine) Misc Prescription (Nebulizer Tubing and Mouthpiece Kit) Misc Prescription (Test Strips) albuterol (Ventolin HFA 90 mcg/inh Aerosol-Adpt) albuterol (albuterol 0.083% Inh Rochelle 3 mL) aripiprazole (Abilify 2 mg Tab) cholecalciferol (Vitamin D3 5000 intl units oral capsule) dulaglutide (Trulicity Pen 1.5 mg/0.5 mL subcutaneous solution) empagliflozin (Jardiance 10 mg oral tablet) fluoxetine (FLUoxetine 20 mg Cap) fluticasone-salmetero l (Advair Diskus 100 mcg-50 mcg inhalation powder) furosemide (furosemide 40 mg Tab) glipiZIDE (glipiZIDE 2.5 mg ER Tab) montelukast (Singulair 10 mg Tab) pantoprazole (Pantoprazole [address] Tab) potassium chloride (potassium chloride 20 mEq ER Tab) predniSONE (predniSONE 20 mg Tab) rosuvastatin (Crestor 40 mg Tab) spironolactone (spironolactone 25 mg Tab) tiotropium (Spiriva Respimat 1.25 mcg/inh inhalation aerosol) tizanidine (tiZANidine 4 mg Tab) trazodone (traZODONE 50 mg Tab) Procedures Performed Colonoscopy (03/17/2020), Eye/lens implant bilat, Knee replacement, L foot bunion/reconstruction . Discharge Vitals Heart Rate (Peripheral) 96 Blood Pressure 128/76 Height 168 cm Height 66 in Weight 148.9 kg Weight 327.58 lb BMI 52.76 What to do next Scheduled Follow-Up Appointments Tuesday 1:20 PM EDT With: Yocasta MSN, CREDIT COLLECTIONS CLERK-UPPER MARKER, Myron Hamilton Where: [facility] Invalid Interpretation Code [address] [id number]- \.br\ 2023 3:00 PM EDT \.br\ With:\.br\ [facility] Consent for Treatmenton 10-03 Consent for Treatment [id number] Normal [facility] Heart and Vascular Office/Cl inic Noteon 10-25-2023 Heart and Vascular Office/Clinic Note Chief Complaint B/L EDEMA History of Present Illness 62-year-old female with history of bilateral lower extremity edema and diastolic heart failure as well as obesity, tobacco smoking, hypertension, hyperlipidemia. Negative stress test last year. Recently was having increased shortness of breath and lower extremity swelling went to [facility], and was told to take extra furosemide twice a day for 1 week and then stop. She did this and has lost 14 pounds is feeling much better much less short of breath. She states that just prior to that event she had been drinking quite heavily straight rum in large quantities. She is now sober for 20 days. She also has some kind of liver problem that they are investigating possibly POOLE. Review of Systems PHQ Score Initial Depression Screen Score: 0 SCORE Constitutional: no fever, no chills, no weakness, no fatigue Respiratory: no shortness of breath, no cough, no orthopnea, no wheezing Cardiovascular: no chest pain, no palpitations, no edema Neuro: no dizziness no light headed no syncope Additional ROS info: Except as noted in the above Review of Systems and in the History of Present Illness all other systems have been reviewed and are negative or noncontributory. Physical Exam Vitals & Measurements HR: 96(Peripheral) BP: 128/76 SpO2: 67% HT: 66 in HT: 168 cm WT: 148.9 kg WT: 327.58 lb BMI: 52.76 General: alert, no acute distress Neck: Supple, noJVD nocarotid bruit Cardiovascular: regular rate and rhythm, no murmur normal peripheral perfusion Respiratory: Lungs CTA, respirations non labored Extremities: Trivial to 1+ edema Neurological: oriented x 4, LOC appropriate for age, sensation equal & normal bilaterally, speech normal Skin: Warm, dry, intact- no rash or concerning lesions Assessment/Plan Unclear if patient has developed an episode of diastolic heart failure possibly related to heavy alcohol intake. Could be new systolic heart failure. Will get an echocardiogram and a BNP/BMP and evaluate for heart failure. She is doing better at this point in time so we will not change her diuretics. Her blood pressure is reasonably well-controlled. She will follow-up in 6 weeks and we will discuss medication changes 1. Benign hypertension (I10: Essential (primary) hypertension) 2. Mixed hyperlipidemia (E78.2: Mixed hyperlipidemia) 3. Bilateral leg edema (R60.0: Localized edema) Follow-up No qualifying data available Problem List/Past Medical History Ongoing Alcohol problem drinking Benign hypertension Bilateral leg edema BMI 50.0-59.9, adult Chronic insomnia Cigarette smoker Class 3 severe obesity due to excess calories with serious comorbidity in adult Elevated liver transaminase level Encounter for medication management Fatty liver GA (granuloma annulare) GERD (gastroesophageal reflux disease) Heart failure with preserved ejection fraction Hypokalemia Left hand weakness Low vitamin D level Medication management Mixed hyperlipidemia Moderate persistent asthma Neurogenic claudication Obstructive sleep apnea Restless leg syndrome Right hip pain Sciatica Seborrheic keratoses Severe major depression Skin tags, multiple acquired Type 2 diabetes mellitus with morbid obesity Uterine fibroid Historical COPD exacerbation Tubular adenoma of colon Procedure/Surgical History Colonoscopy (03/17/2020), Eye/lens implant bilat, Knee replacement, L foot bunion/reconstruction . Medications Abilify 2 mg Tab, 2 mg= 1 tab(s), Oral, Daily, 3 refills Advair Diskus 100 mcg-50 mcg inhalation powder, See Instructions albuterol 0.083% Inh Rochelle 3 mL, 2.5 mg= 3 mL, Inhalation, q6hr, PRN, 1 refills Alcohol wipes, See Instructions, 3 refills Crestor 40 mg Tab, 40 mg= 1 tab(s), Oral, Daily, 3 refills FLUoxetine 20 mg Cap, 40 mg= 2 cap(s), Oral, Daily, 1 refills furosemide 40 mg Tab, 40 mg= 1 tab(s), Oral, Daily, 1 refills glipiZIDE 2.5 mg ER Tab, 2.5 mg= 1 tab(s), Oral, Daily, 1 refills Glucometer, See Instructions Jardiance 10 mg oral tablet, 10 mg, Oral, Daily, 2 refills Lancets, See Instructions, 3 refills Nebulizer Machine, See Instructions Nebulizer Tubing and Mouthpiece Kit, See Instructions Pantoprazole [address] Tab, 40 mg= 1 tab(s), Oral, Daily, 3 refills potassium chloride 20 mEq ER Tab, 20 mEq= 1 tab(s), Oral, Daily, PRN, 5 refills predniSONE 20 mg Tab, 20 mg= 1 tab(s), Oral, As Directed Singulair 10 mg Tab, 10 mg= 1 tab(s), Oral, qPM, 2 refills Spiriva Respimat 1.25 mcg/inh inhalation aerosol, 2 puff(s), Inhalation, Daily, 3 refills spironolactone 25 mg Tab, 25 mg= 1 tab(s), Oral, Daily, 1 refills Test Strips, See Instructions, 3 refills tiZANidine 4 mg Tab, 4 mg= 1 tab(s), Oral, q8hr, PRN traZODONE 50 mg Tab, 50 mg= 1 tab(s), Oral, Once a day (at bedtime) Trulicity Pen 1.5 mg/0.5 mL subcutaneous solution, 1.5 mg, SubCutaneous, qWeek Ventolin HFA 90 mcg/inh Aerosol-Adpt, 2 puff(s), Inhalation, q6hr, PRN, 1 refills Vi (more content not included)... Normal [facility] Comment on above: Result Comment: Elec tronically Signed By: Adam SAMPSON, Alirio Hooper\.br\Date and Time Signed: 10/25/23 15:21 EDT Ambulatory Visit Summaryon 0 10-11-2023 Ambulatory Visit Summary CARMEN BLEDSOE :1960 Visit Date:10/11/2023 Ambulatory Visit Instructions Your Diagnosis Heart failure with preserved ejection fraction Type 2 diabetes mellitus with morbid obesity Benign hypertension Class 3 severe obesity due to excess calories with serious comorbidity in adult BMI 50.0-59.9, adult Your Care Team Attending Physician - Yocasta MSN, CREDIT COLLECTIONS CLERK-UPPER MARKERMyron Primary Care Physician - Yocasta MSN, CREDIT COLLECTIONS CLERK-UPPER MARKERMyron This Is Your Medications List Misc Prescription (Nebulizer Machine) Misc Prescription (Nebulizer Tubing and Mouthpiece Kit) albuterol (albuterol 0.083% Inh Rochelle 3 mL) dulaglutide (Trulicity Pen 1.5 mg/0.5 mL subcutaneous solution) spironolactone (spironolactone 25 mg Tab) trazodone (traZODONE 50 mg Tab) Contact prescribing physician if questions or concerns Misc Prescription (Alcohol wipes) Misc Prescription (Glucometer) Misc Prescription (Lancets) [facility] [place] (Test Strips) albuterol (Ventolin HFA 90 mcg/inh Aerosol-Adpt) aripiprazole (Abilify 2 mg Tab) cholecalciferol (Vitamin D3 5000 intl units oral capsule) empagliflozin (Jardiance 10 mg oral tablet) fluoxetine (FLUoxetine 20 mg Cap) fluticasone-salmetero l (Advair Diskus 100 mcg-50 mcg inhalation powder) furosemide (furosemide 40 mg Tab) glipiZIDE (glipiZIDE 2.5 mg ER Tab) montelukast (Singulair 10 mg Tab) pantoprazole (Pantoprazole [address] Tab) potassium chloride (potassium chloride 20 mEq ER Tab) predniSONE (predniSONE 20 mg Tab) rosuvastatin (Crestor 40 mg Tab) tiotropium (Spiriva Respimat 1.25 mcg/inh inhalation aerosol) tizanidine (tiZANidine 4 mg Tab) varenicline (varenicline 0.5 mg oral tablet) varenicline (varenicline 1 mg oral tablet) [Image Removed: STOP]Stop taking these medications celecoxib (CeleBREX 200 mg Cap) Procedures Performed Colonoscopy (03/17/2020), Eye/lens implant bilat, Knee replacement, L foot bunion/reconstruction . Discharge Vitals Temperature (Oral) 37 ?C Heart Rate (Peripheral) 65 Respiratory Rate 20 Blood Pressure 144/90 Height 168 cm Height 66 in Weight 160.2 kg Weight 352.44 lb BMI 56.76 What to do next Scheduled Follow-Up Appointments Tuesday 3:00 PM EDT With: Adam SAMPSON, Alirio Hooper Where: [facility] Tuesday 1:20 PM EDT With: Yocasta SMITH, CREDIT COLLECTIONS CLERK-Myron VILLATORO Where: [facility] [address] [place] [id number] \.br\ You Need to Schedule the Following Appointments\.br \ Follow Up with Yocasta SMITH, DARLEEN-Myron VILLATORO When: In 2 weeks\.br\ Comments:\.br\ chronic care\.br\ Where:\.br\ [facility]\.br\ [place] [address]\.br\ Medications\.br\ What How Much When Why Instructions\.br \ New albuterol (albuterol 0.083% Inh Rochelle 3 mL) 3 Milliliter Inhalation Every 6 hours as needed for Shortness of breath or wheezing Refills: 1 Pickup at [facility] #[id number]\.br\ Changed dulaglutide (Trulicity Pen 1.5 mg/ 0.5 mL subcutaneous solution) 1.5 Milligram Subcutaneous Every week Pickup at [facility] #[id number]\.br\ Changed spironolactone (spironolactone 25 mg Tab) 1 Tablets By Mouth Every day Duration: 90 Days Pickup at [facility] #[id number]\.br\ Unchanged Misc Prescription (Nebulizer Machine) See instructions Moderate persistent asthma Nebulizer Machine Pickup at [facility] #[id number]\.br\ Unchanged Misc Prescription (Nebulizer Tubing and Mouthpiece Kit) See instructions Moderate persistent asthma Nebulizer Tubing and Mouthpiece Kit Pickup at [facility] #[id number]\.br\ Unchanged trazodone (traZODONE 50 mg Tab) 1 Tablets By Mouth Once a day (at bedtime) Pickup at [facility] #[id number]\.br\ Unchanged albuterol (Ventolin HFA 90 mcg/ inh Aerosol-Adpt) 2 Puffs Inhalation Every 6 hours as needed for for wheezing Contact prescribing physician if questions or concerns \.br\ Unchanged aripiprazole (Abilify 2 mg Tab) 1 Tablets By Mouth Every day Contact prescribing physician if questions or concerns \.br\ Unchanged cholecalciferol (Vitamin D3 5000 intl units oral capsule) 1 Capsules By Mouth Every day with food Contact prescribing physician if questions or concerns \.br\ Unchanged empagliflozin (Jardiance 10 mg oral tablet) 10 Milligram By Mouth Every day Contact prescribing physician if questions or concerns \.br\ Unchanged fluoxetine (FLUoxetine 20 mg Cap) 2 Capsules By Mouth Every day Contact prescribing physician if questions or concerns \.br\ Unchanged fluticasone-salm eterol (Advair Diskus 100 mcg-50 mcg inhalation powder) See instructions Contact prescribing physician if questions or concerns \.br\ Unchanged furosemide (furosemide 40 mg Tab) 1 Tablets By Mouth Every day Contact prescribing physician if questions or concerns \.br\ Unchanged glipiZIDE (glipiZIDE 2.5 mg ER Tab) 1 Tablets By Mouth Every day Contact prescribing physician if questions or concerns \.br\ Unchanged Misc Prescription (Alcohol wipes) See instructions Use to check BS daily dx E11.9 Contact prescribing physician if questions or concerns \.br\ Unchanged Misc Prescription (Glucometer) See instructions Glucometer to test BS TID and PRN dx E11.9 Contact prescribing physician if questions or concerns \.br\ Unchanged Misc Prescription (Lancets) See instructions Use to check BS daily dx E11.9 Contact prescribing physician if questions or concerns \.br\ Unchanged Misc Prescription (Test Strips) See instructions Type 2 diabetes mellitus with morbid obesity Use to test BS daily Contact prescribing physician if questions or concerns \.br\ Unchanged montelukast (Singulair 10 mg Tab) 1 Tablets By Mouth Once a day (in the evening) Moderate persistent asthma Contact prescribing physician if questions or concerns \.br\ Unchanged pantoprazole (Pantoprazole [address] Tab) 1 Tablets By Mouth Every day Contact prescribing physician if questions or concerns \.br\ Unchanged potassium chloride (potassium chloride 20 mEq ER Tab) 1 Tablets By Mouth Every day as needed for PRN Take with Lasix Contact prescribing physician if questions or concerns \.br\ Unchanged predniSONE (predniSONE 20 mg Tab) 1 Tablets By Mouth As Directed Take three tabs by mouth for one day, then two tabs for one day, then one tab for one day Contact prescribing physician if questions or concerns \.br\ Unchanged rosuvastatin (Crestor 40 mg Tab) 1 Tablets By Mouth Every day Contact prescribing physician if questions or concerns \.br\ Unchanged tiotropium (Spiriva Respimat 1.25 mcg/ inh inhalation aerosol) 2 Puffs Inhalation Every day Contact prescribing physician if questions or concerns \.br\ Unchanged tizanidine (tiZANidine 4 mg Tab) 1 Tablets By Mouth Every 8 hours as needed for Spasm Contact prescribing physician if questions or concerns \.br\ Unchanged varenicline (varenicline 0.5 mg oral tablet) See instructions 1 po daily x3 days then 1 po BID x4 days. Follow this with 1 mg BID prescription varenicline Contact prescribing physician if questions or concerns \.br\ Unchanged varenicline (varenicline 1 mg oral tablet) 1 Tablets By Mouth 2 times a day after meals Contact prescribing physician if questions or concerns \.br\ Pharmacy Information\.br\ [facility] #[id number]: [address] [place] [id number] [phone]\.br\ \.br\ What How Much When Comments\.br\ Stop Taking celecoxib (CeleBREX 200 mg Cap) 1 Capsules By Mouth 2 times a day as needed for as needed for pain with food \.br\ Allergies\.br\ amLODIPine (Leg Edema)\.br\ lisinopril (Persistent cough, Tongue swelling)\.br\ metFORMIN (Diarrhea)\.br\ Problems\.br\ Ongoing - Any problem that you are currently receiving treatment for.\.br\ Alcohol problem drinking\.br\ Benign hypertension\.br \ Bilateral leg edema\.br\ BMI 50.0-59.9, adult\.br\ Chronic insomnia\.br\ Cigarette smoker\.br\ Class 3 severe obesity due to excess calories with serious comorbidity in adult\.br\ Elevated liver transaminase level\.br\ Encounter for medication management\.br\ Fatty liver\.br\ GA (granuloma annulare)\.br\ GERD (gastroesophagea l reflux disease)\.br\ Heart failure with preserved ejection fraction\.br\ Hypokalemia\.br\ Left hand weakness\.br\ Low vitamin D level\.br\ Medication management\.br\ Mixed hyperlipidemia\. br\ Moderate persistent asthma\.br\ Neurogenic claudication\.br \ Obstructive sleep apnea\.br\ Restless leg syndrome\.br\ Right hip pain\.br\ Sciatica\.br\ Seborrheic keratoses\.br\ Severe major depression\.br\ Skin tags, multiple acquired\.br\ Type 2 diabetes mellitus with morbid obesity\.br\ Uterine fibroid\.br\ Historical - Any problem that you are no longer receiving treatment for.\.br\ COPD exacerbation\.br \ Tubular adenoma of colon\.br\ Patient Survey\.br\ You may receive a survey via text or e-mail asking about your office visit. Please share your experience with us by completing your survey. We appreciate your feedback and thank you for choosing us for your care.\.br\ Education Materials\.br\ Type 2 Diabetes Mellitus, Self-Care, Adult\.br\ Caring for yourself after you have been diagnosed with type 2 diabetes (type 2 diabetes mellitus) means keeping your blood sugar (glucose) under control with a balance of:\.br\ ? \.br\ Nutrition.\.br\ ? \.br\ Exercise.\.br\ ? \.br\ Lifestyle changes.\.br\ ? \.br\ Medicines or insulin, if needed.\.br\ ? \.br\ Support from your team of health care providers and others.\.br\ What are the risks?\.br\ Having type 2 diabetes can put you at risk for other long-term (chronic) conditions, such as heart disease and kidney disease. Your health care provider may prescribe medicines to help prevent complications from diabetes.\.br\ How to monitor your blood glucose\.br\ \.br\ ? \.br\ Check your blood glucose every day or as often as told by your health care provider.\.br\ ? \.br\ Have your A1C (hemoglobin A1C) level checked two or more times a year, or as often as told by your health care provider.\.br\ ? \.br\ Your health care provider will set personalized treatment goals for you. Generally, the [facility] Family Medicine Office/Clini c Noteon 10-11-2023 Family Medicine Office/Clinic Note Chief Complaint Pt presents for [facility] F/U 10/06/23 for difficulty breathing. Valentino leg swelling HPI Staff ER followup: Hospital: [facility] Visit date:[id number] 10/06/23 Symptoms the patient presented with: difficulty breathing Symptom onset/injury onset: Testing Performed: New medications: New specialist involved Therapy ordered: Next appointment date: Current concerns: Pt C/O valentino leg swelling. History of Present Illness a 62-year-old female presenting today for an ER visit due to difficulty breathing. She is accompanied by her sister. She was recently at [facility] for difficulty breathing. She was found to be in congestive heart failure. She ran out of her sporadic down, she says she called the office to get it refilled but has not heard of anything from us. Unable to find any messages sent to the office for refill. ER physician told her to double up on her Lasix for the next 5 days, she states that has helped with the breathing as well as decreasing the edema. She expressed her edema was in all of her extremities her abdomen as well as her face. Her sisters noticed an improvement since doubling up on the Lasix. She also states that she received a breathing treatment and that tremendously helped with her breathing as well. She is inquiring a refill on her nebulizer at home. She has not checked her blood sugars anytime recently. She is currently on Trulicity. She states that the ER physician suggested her switching to Ozempic to help with the weight loss. Does note that she is on a low dose of Trulicity. She knows if she loses weight this will help tremendously with her hip pain. Which she did have steroid injection, that provided relief for her for only 2 weeks. She realizes that on the way she could have surgery on her hip is if she loses the weight. Currently she denies any chest pain or difficulty breathing at rest. She does become short winded when she does anything strenuous. Overall she just wants to get better and finally to improve. She does have an appointment with Dr. Ramirez October 25, 2023 for follow-up. She also received a referral from me to gastrointestinal at [facility] for further evaluation of her hepatomegaly with elevated liver enzymes. Currently denies nausea/vomiting/diarr hea, states swelling continues in her lower extremity well. Denies any headaches or blurry vision. Review of Systems PHQ Score Initial Depression Screen Score: 0 SCORE Negative as stated in the HPI. Physical Exam Vitals & Measurements T: 37 ?C(Oral) HR: 65(Peripheral) RR: 20 BP: 142/90 SpO2: 95% HT: 66 in HT: 168 cm WT: 160.2 kg WT: 352.44 lb BMI: 56.76 Constitutional: Well-groomed, well-nourished, no signs of acute distress. HEENT: Head normocephalic, sclera is clear. Cardiothoracic: Heart rate and rhythm is regular strong, normal S1 and S2. No murmurs, rubs, or bruits auscultated. Bilateral peripheral edema, peripheral pulses +2 Respiratory: Lung sounds with expiratory wheezes posteriorly without crackles or rhonchi, respirations regular nonlabored. Abdomen/GI: Abdomen soft, round, and she is accompanied by her sister. Nondistended. Musculoskeletal: Gait is steady, full range of motion. Integument: No rashes or lesions noted to the exposed skin. Psychiatric: Alert and oriented x 3, pleasant, no mood changes. Assessment/Plan 1. Heart failure with preserved ejection fraction (I50.30: Unspecified diastolic (congestive) heart failure) The patient was recently admitted to [facility] on 10/06/2023 due to respiratory distress, which led to a diagnosis of heart failure. She exhausted her spironolactone supply and was subsequently advised to double her Lasix dosage, with the final dose scheduled for today. We will send her a refill for her spironolactone. She has an appointment scheduled with her lithographic artist, Dr. Ramirez, later this month. Given her recent weight gain, it is evident that fluid accumulation results in a resurgence of her condition. She is also scheduled to consult with a legal billing specialist for an enlarged liver. I am concerned about with everything going on with her and her fluid retention. Lungs actually sound pretty good minus the expiratory wheezes. Will have her follow-up with me every 2 weeks for close the monitoring until we can get her stabilized., She will also monitor her weight at home and report it to Dr. Ramirez. We will wait for the recommendation from Dr. Ramirez. 2. Type 2 diabetes mellitus with morbid obesity (E11.69: Type 2 diabetes mellitus with other specified complication) The patient is advised to continue monitoring her blood glucose levels. Her Trulicity dosage will be increased to 1.5 mg, with the aim of reducing her weight. Jardiance will also be continued. She will follow up with me every 2 weeks until we can get everything situated between her breathing and her diabetes. The importance of the following were all reviewed with the patient: -Take medications as pres (more content not included)... Normal [facility] Comment on above: Result Comment: Elec tronically Signed By: Yocasta SMITH, CREDIT COLLECTIONS CLERK- Myron VILLATORO\.br\Date and Time Signed: 10/11/23 20:33 EDT\.br\Electronically Co-Signed By: Safia Greenberg\.br\Date and Time Co-Signed: 10/11/23 19:41 EDT Patient Educationon 10-10-19 Patient Education Cardiovascular Heart Failure Exacerbation Heart failure is a condition in which the heart has trouble pumping blood. This may mean that the heart cannot pump enough blood out to the body or that the heart does not fill up with enough blood. When this happens, parts of the body do not get the blood and oxygen they need to function properly. This can cause symptoms such as breathing problems, tiredness (fatigue), swelling, and confusion. Heart failure exacerbation refers to heart failure symptoms that get worse. The symptoms may get worse suddenly or develop slowly over time. Heart failure exacerbation is a serious medical problem that should be treated right away. What are the causes? A heart failure exacerbation can be triggered by: ? Not taking your heart failure medicines correctly. ? Infections. ? Eating an unhealthy diet or a diet that is high in salt (sodium). ? Drinking too much fluid. ? Drinking alcohol. ? Using drugs, such as cocaine or methamphetamine. ? Not exercising. Other causes include: ? Other heart conditions such as an irregular heart rhythm (arrhythmia). ? Worsening heart valve function. ? Low blood counts (anemia). ? Other medical problems, such as kidney failure, thyroid problems, or diabetes mellitus. Sometimes the cause of the exacerbation is not known. What are the signs or symptoms? When heart failure symptoms suddenly or slowly get worse, this may be a sign of heart failure exacerbation. Symptoms of heart failure include: ? Shortness of breath during activity or exercise. ? A cough that does not go away. ? Swelling of the legs, ankles, feet, or abdomen. ? Losing or gaining weight for no reason. ? Trouble breathing when lying down. ? Increased heart rate or irregular heartbeat. ? Fatigue. ? Feeling light-headed, dizzy, or close to fainting. ? Nausea or lack of appetite. How is this diagnosed? This condition is diagnosed based on: ? Your symptoms and medical history. ? A physical exam. You may also have tests, including: ? Electrocardiogram (ECG). This test measures the electrical activity of your heart. ? Echocardiogram. This test uses sound waves to take a picture of your heart to see how well it works. ? Blood tests. ? Imaging tests, such as: ? Chest X-ray. ? MRI. ? Ultrasound. ? Stress test. This test examines how well your heart functions while you exercise on a treadmill or exercise bike. If you cannot exercise, medicines may be used to increase your heartbeat in place of exercise. ? Cardiac catheterization. During this test, a thin, flexible tube (catheter) is inserted into a blood vessel and threaded up to your heart. This test allows your health care provider to check the arteries that lead to your heart (coronary arteries). ? Right heart catheterization. During this test, the pressure in your heart is measured. How is this treated? This condition may be treated by: ? Adjusting your heart medicines. ? Maintaining a healthy lifestyle. This includes: ? Eating a heart-healthy diet that is low in sodium. ? Not using products that contain nicotine or tobacco. ? Regular exercise. ? Monitoring your fluid intake. ? Monitoring your weight and reporting changes to your health care provider. ? Not using alcohol or drugs. ? Treating sleep apnea, if you have this condition. ? Surgery. This may include: ? Placing a pacemaker to improve heart function (cardiac resynchronization therapy). ? Implanting a device that can correct heart rhythm problems (implantable cardioverter defibrillator). ? Implanting a pulmonary arterial pressure monitor to monitor your fluid balance. ? Connecting a device to your heart to help it pump blood (ventricular assist device). ? Heart transplant. Follow these instructions at home: Medicines ? Take [id number] and prescription medicines only as told by your health care provider. ? Do not stop taking your medicines or change the amount you take. If you are having problems or side effects from your medicines, talk to your health care provider. ? If you are having difficulty paying for your medicines, contact a case management social worker or your clinic. There are many programs to assist with medicine costs. ? Talk to your health care provider before starting any new medicines or supplements. ? Make sure your health care provider and pharmacist have a list of all the medicines you are taking. Eating and drinking ? Avoid drinking alcohol. ? Eat a heart-healthy diet as told by your health care provider. This includes: ? Plenty of fruits and vegetables. ? Lean proteins. ? Low-fat dairy. ? Whole grains. ? Foods that are low in sodium. Activity ? Exercise regularly as told by your health care provider. Balance exercise with rest. ? Ask your health care provider what activities are safe for you. This includes sexual activity, exercise, and daily tasks (more content not included)... Normal [facility] ED Note-Physicianon 10-07-19 ED Note-Physician [id number] .[id number] Normal [facility] Basic Metabolic Profon 10-05 Anion gap [Moles/Vol] 12 mmol/L Normal 9-17 [facility] Comment on above: Performed By: #### B LOAN REVIEW ANALYST, DIME, BMP, TROPI, CDP #### [facility] [address] [place], [place] [id number] Casing Puller: Yury Caba MD Calcium [Mass/Vol] 9.0 mg/dL Normal 8.6-10.4 [facility] Comment on above: Performed By: #### B LOAN REVIEW ANALYST, DIME, BMP, TROPI, CDP #### [facility] [address] [place] [address] Casing Puller: Yury Caba MD Chloride [Moles/Vol] 100 mmol/L Normal 98-107 [facility] Comment on above: Performed By: #### B LOAN REVIEW ANALYST, DIME, BMP, TROPI, CDP #### [facility] [address] [place] [address] Casing Puller: Yury Caba MD CO2 [Moles/Vol] 24 mmol/L Normal 20-[address] [facility] Comment on above: Performed By: #### B LOAN REVIEW ANALYST, DIME, BMP, TROPI, CDP #### [facility] [address] [place] [address] Casing Puller: Yury Caba MD Creatinine [Mass/Vol] 0.5 mg/dL Normal 0.5-0.9 [facility] Comment on above: Performed By: #### B LOAN REVIEW ANALYST, DIME, BMP, TROPI, CDP #### [facility] [address] [place] [address] Casing Puller: Yury Caba MD GFR/1.73 sq M.predicted among non-blacks MDRD (S/P/Bld) [Vol rate/Area] mL/min/{1.73_m2} Normal >60 [facility] Comment on above: Result Comment: These results are not intended for use in patients <18 years of age. eGFR results are calculated without a race factor using the 2020 CKD-EPI equation. Careful clinical correlation is recommended, particularly when comparing to results calculated using previous equations. The CKD-EPI equation is less accurate in patients with extremes of muscle mass, extra-renal metabolism of creatine, excessive creatine ingestion, or following therapy that affects renal tubular secretion. Performed By: #### B MARCIAL, DIME, BMP, TROPI, CDP #### [facility] [address] [place] [address] Casing Puller: Yury Caba MD Glucose [Mass/Vol] 122 mg/dL High 70-99 [facility] Comment on above: Performed By: #### B MARCIAL DIME BMP, TROPI, CDP #### [facility] [address] [place] [address] Casing Puller: Yury Caba MD Potassium [Moles/Vol] 3.4 mmol/L Low 3.7-5.3 [facility] Comment on above: Performed By: #### B ADRIEL CEJAE, BMP, TROPI, CDP #### [facility] [address] [place] [address] Casing Puller: Yury Caba MD Sodium [Moles/Vol] 136 mmol/L Normal 135-144 [facility] Comment on above: Performed By: #### B MARCIAL, ADRIELE, BMP, TROPI, CDP #### [facility] [address] [place] [address] Casing Puller: Yury Caba MD Urea nitrogen [Mass/Vol] 14 mg/dL Normal 8-23 [facility] Comment on above: Performed By: #### B LOAN REVIEW ANALYST, DIME, BMP, TROPI, CDP #### [facility] [address] [place] [address] Casing Puller: Yury Caba MD Brain Natri. Peptideon 10-05 Natriuretic peptide B (Bld) [Mass/Vol] 3161 pg/mL High <300 [facility] Comment on above: Result Comment: An age-independent cutoff point of 300 pg/ml has a 98% negative predictive value excluding acute heart failure. Performed By: #### B LOAN REVIEW ANALYST, DIME, BMP, TROPI, CDP #### [facility] [address] [place] [id number] Casing Puller: Yury Caba MD CBC with Diffon 10-06-2023 Abs. Basophil 0.02 k/uL Normal 0.00-0.20 [facility] Comment on above: Performed By: #### B LOAN REVIEW ANALYST, DIME, BMP, TROPI, CDP #### [facility] [address] [place] [address] Casing Puller: Yury Caba MD Abs.Imm.Granulocyte 0.02 k/uL Normal 0.00-0.30 [facility] Comment on above: Performed By: #### B LOAN REVIEW ANALYST, DIME, BMP, TROPI, CDP #### [facility] [address] [place] [address] Casing Puller: Yury Caba MD Abs.Neutrophil (Seg) 4.75 k/uL Normal 2.5-7.0 [facility] Comment on above: Performed By: #### B LOAN REVIEW ANALYST, DIME, BMP, TROPI, CDP #### [facility] [address] [place] [address] Casing Puller: Yury Caba MD Basophils/100 WBC (Bld) 0 % Normal 0-2 [facility] Comment on above: Performed By: #### B LOAN REVIEW ANALYST, DIME, BMP, TROPI, CDP #### [facility] [address] [place] [address] Casing Puller: Yury Caba MD Eosinophils (Bld) [#/Vol] 0.03 10*3/uL Normal 0.00-0.40 [facility] Comment on above: Performed By: #### B LOAN REVIEW ANALYST, DIME, BMP, TROPI, CDP #### [facility] [address] [place], [place] [id number] Casing Puller: Yury Caba MD Eosinophils/100 WBC (Bld) 1 % Normal 0-5 [facility] Comment on above: Performed By: #### B LOAN REVIEW ANALYST, DIME, BMP, TROPI, CDP #### [facility] [address] [place] [id number] Casing Puller: Yury Caba MD Erythrocyte distribution width (RBC) [Ratio] 13.8 % Normal 12.1-15.2 [facility] Comment on above: Performed By: #### B LOAN REVIEW ANALYST, DIME, BMP, TROPI, CDP #### [facility] [address] [place] [address] Casing Puller: Yury Caba MD Hematocrit (Bld) [Volume fraction] 36.4 % Normal 36.0-46.0 [facility] Comment on above: Performed By: #### B LOAN REVIEW ANALYST, DIME, BMP, TROPI, CDP #### [facility] [address] [place] [id number] Casing Puller: Yury Caba MD Hemoglobin (Bld) [Mass/Vol] 12.5 g/dL Normal 12.0-16.0 [facility] Comment on above: Performed By: #### B LOAN REVIEW ANALYST, DIME, BMP, TROPI, CDP #### [facility] [address] [place] [address] Casing Puller: Yury Caba MD Immature granulocytes/100 WBC (Bld) 0 % Normal 0-5 [facility] Comment on above: Performed By: #### B LOAN REVIEW ANALYST, DIME, BMP, TROPI, CDP #### [facility] [address] [place] [address] Casing Puller: Yury Caba MD Lymphocytes (Bld) [#/Vol] 0.54 10*3/uL Low 1.00-4.80 [facility] Comment on above: Performed By: #### B LOAN REVIEW ANALYST, DIME, BMP, TROPI, CDP #### [facility] [address] [place] [id number] Casing Puller: Yury Caba MD Lymphocytes/100 WBC (Bld) 9 % Low 15-40 [facility] Comment on above: Performed By: #### B LOAN REVIEW ANALYST, DIME, BMP, TROPI, CDP #### [facility] [address] [place] [address] Casing Puller: Yury Caba MD MCH (RBC) [Entitic mass] 34.1 pg High 26.0-34.0 [facility] Comment on above: Performed By: #### B LOAN REVIEW ANALYST, DIME, BMP, TROPI, CDP #### [facility] [address] [place] [address] Casing Puller: Yury Caba MD MCHC (RBC) [Mass/Vol] 34.3 g/dL Normal 31.0-37.0 [facility] Comment on above: Performed By: #### B LOAN REVIEW ANALYST, DIME, BMP, TROPI, CDP #### [facility] [address] [place] [address] Casing Puller: Yury Caba MD MCV (RBC) [Entitic vol] 99.2 fL Normal 80.0-100.0 [facility] Comment on above: Performed By: #### B LOAN REVIEW ANALYST, DIME, BMP, TROPI, CDP #### [facility] [address] [place] [address] Casing Puller: Yury Caba MD Monocytes (Bld) [#/Vol] 0.47 10*3/uL Normal 0.00-1.00 [facility] Comment on above: Performed By: #### B LOAN REVIEW ANALYST, DIME, BMP, TROPI, CDP #### [facility] [address] [place] [id number] Casing Puller: Yury Caba MD Monocytes/100 WBC (Bld) 8 % Normal 4-8 [facility] Comment on above: Performed By: #### B LOAN REVIEW ANALYST, DIME, BMP, TROPI, CDP #### [facility] [address] [place], [place] [phone] ([phone] Casing Puller: Yury Caba MD Neutrophil (Seg) 82 % High 47-75 [facility] Comment on above: Performed By: #### B LOAN REVIEW ANALYST, DIME, BMP, TROPI, CDP #### [facility] [address] [place], [place] [phone] ([phone] Casing Puller: Yury Caba MD Platelet mean volume (Bld) [Entitic vol] 9.0 fL Normal 6.0-12.0 [facility] Comment on above: Performed By: #### B LOAN REVIEW ANALYST, DIME, BMP, TROPI, CDP #### [facility] [address] [place], [place] [phone] ([phone] Casing Puller: Yury Caba MD Platelets (Bld) [#/Vol] 176 10*3/uL Normal 140-450 [facility] Comment on above: Performed By: #### B LOAN REVIEW ANALYST, DIME, BMP, TROPI, CDP #### [facility] [address] [place], [place] [phone] ([phone] Casing Puller: Yury Caba MD RBC (Bld) [#/Vol] 3.67 10*6/uL Low 4.00-5.20 [facility] Comment on above: Performed By: #### B LOAN REVIEW ANALYST, DIME, BMP, TROPI, CDP #### [facility] [address] [place], [place] [phone] ([phone] Casing Puller: Yury Caba MD WBC (Bld) [#/Vol] 5.8 10*3/uL Normal 3.5-11.0 [facility] Comment on above: Performed By: #### B LOAN REVIEW ANALYST, DIME, BMP, TROPI, CDP #### [facility] [address] [place] [address] Casing Puller: Yury Caba MD D-Dimer Teston 10-06-2023 D-Dimer Test 0.68 ug/mL FEU High 0.00-0.59 [facility] Comment on above: Result Comment: When combined with a low clinical probability, a D dimer value of <0.50 ug/mL FEU is considered negative for DVT and PE (negative predictive value of 98%, sensitivity of 97%). If this test is not being used to help rule out DVT and PE, then the following reference range should be utilized: 0.00 - 0.59 ug/mL FEU. The D-Dimer assay is intended for use as an aid in the diagnosis of venous thromboembolism (DVT and PE) and the results should be interpreted in conjunction with the patient's medical history, clinical presentation, and other findings. Elevated levels of D-dimer activity can be seen in any state of coagulation activation and is not recommended in patients with therapeutic dose anticoagulant therapy for >24 hours, fibrinolytic therapy within the previous 7 days, trauma or surgery within the previous 4 weeks, disseminated malignancies, aortic aneurysm, sepsis, severe infections, pneumonia, severe skin infections, liver cirrhosis, advanced age, coronary disease, diabetes, and . A very low percentage of patients with DVT may yield D-dimer results below the cutoff of 0.5 ug/mL FEU. This is known to be more prevalent in patients with distal DVT. Performed By: #### B LOAN REVIEW ANALYST, DIME, BMP, TROPI, CDP #### [facility] [address] [place], [place] [phone] Casing Puller: Yury Caba MD RAD - MISCon 10-06-2023 RAD - MISC [id number] .00TIFF Normal [facility] Troponinon 10-06-2023 Troponin, High Sens 27 ng/L High 0-14 [facility] Comment on above: Result Comment: High Sensitivity Troponin values cannot be compared with other Troponin methodologies. Performed By: #### B LOAN REVIEW ANALYST, DIME, BMP, TROPI, CDP #### [facility] [address] [place] [address] Casing Puller: Yury Caba MD XR CHEST (2 VW)on 10-06-2023 XR CHEST (2 VW) EXAM: XR CHEST (2 VW ) HISTORY: Shortness of breath COMPARISON: None. IMPRESSION: FINDINGS/IMPRESSION: 1. Shallow breath with clear lungs. 2. Mild cardiomegaly. Interpreted by: Casa Minor Jr., MD Signed by: Casa Minor Jr., MD 10/06/23 Final result Normal [facility] Diagnostic Testson Diagnostic Tests [id number] .00TIFF Normal [facility] RAD - Ultrasound Reporton RAD - Ultrasound Report [id number] .00TIFF Normal [facility] US LIVERon 08-24-2023 US LIVER EXAMINATION: RIGHT UPPER QUADRANT ULTRASOUND 08/24/2023 12:37 pm COMPARISON: None. HISTORY: ORDERING SYSTEM PROVIDED HISTORY: Localized edema FINDINGS: LIVER: Liver shows increased echogenicity suggesting hepatic steatosis without focal lesion. Liver 22 cm in length. BILIARY SYSTEM: Gallbladder is unremarkable without evidence of pericholecystic fluid, wall thickening or stones. Negative sonographic Martinez's sign. Common bile duct is within normal limits measuring 4 mm. RIGHT KIDNEY: The right kidney is grossly unremarkable without evidence of hydronephrosis. PANCREAS: Visualized portions of the pancreas are unremarkable. OTHER: No evidence of right upper quadrant ascites. IMPRESSION: Hepatomegaly and hepatic steatosis. Interpreted by: Braulio Crawley DO Signed by: Braulio Crawley DO 08/24/23 Final result Normal [facility] Phone Visit - Telehealthon 08-11-2023 Family Medicine Phone Visit - Telehealth Chief Complaint Here for 6 month check, right hip pain,, medication refills trazadone, and water pills History of Present Illness 62-year-old female who presents here today for a 6-month chronic care follow-up. She complains of soreness to her bilateral lower extremities, left side greater than other with redness which radiates up to her knees. She had right hip pain.She describes her pain as bone to bone. Her pain is rated as 10 out of 10 today. Her pain is typically rated as a 7 to 8 out of 10. Her symptoms started a couple of days ago. Approximately 3 weeks ago, she attended physical therapy 5 to 6 times. Her pain was severe when coming home from physical therapy, so it was not beneficial for her. She denies any chest pain, or dyspnea. Her that the soreness decreased to the point that it was normal until the soreness suddenly resumed. She tries to elevate her legs especially when she is sitting. Her hip issue had worsen. The patient has not monitored her blood glucose at home recently. Today, she ate eggs, hash, and 1piece of toast with jelly. 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 She denies any blurry vision. She had cataract surgery. Her blood pressure is within normal limits. She denies any polydipsia or polyphagia. She reports of polyuria. She is due for mammogram, Pap smear, and colonoscopy. She has decreased her smoking to 5 to 6 cigarettes per day from 10 cigarettes per day. Review of Systems PHQ Score Initial Depression Screen Score: 0 SCORE Negative as stated in the HPI. Physical Exam Vitals & Measurements T: 36.6 ?C(Temporal Artery) HR: 90(Peripheral) RR: 20 BP: 124/70 SpO2: 95% HT: 66 in HT: 167 cm WT: 151.4 kg WT: 333.08 lb BMI: 54.29 Constitutional: Well-groomed, well-nourished, no signs of acute distress. HEENT: Head normocephalic, sclera is clear. Cardiothoracic: Heart rate and rhythm is regular strong, normal S1 and S2. No murmurs, rubs, or bruits auscultated. Bilateral lower extremity edema +3, left greater than the right lower extremity. peripheral pulses +2 Respiratory: Lung sounds are clear throughout, respirations regular nonlabored. Abdomen/GI: Abdomen soft nondistended. Musculoskeletal: Gait is steady, full range of motion. Integument: Bilateral lower extremity very erythema with warmth. No drainage or open wounds noted Psychiatric: Alert and oriented x 3, pleasant, no mood changes. Diabetic Foot Exam Decreased Monofilament Sensation Foot: Left - Abnormal, Right - Abnormal Bunions/Foot Deformity: Left - Normal, Right - Normal Abnormal Pulse Foot: Left - Normal, Right - Normal Skin Lesions Foot: Left - Normal, Right - Normal Foot Exam Result: Abnormal foot exam Assessment/Plan 1. Type 2 diabetes mellitus with morbid obesity (E11.69: Type 2 diabetes mellitus with other specified complication) The importance of the following were all reviewed with the patient: -Take medications as prescribed. -Exercise and diet as discussed. -Monitoring blood sugar and HgBA1c regularly. -Monitoring urine microalbumin regularly to check for kidney damage. -Annual eye exams to prevent blindness. -Proper foot care and regularly checking feet to prevent sores and possibly loss of limbs. Currently she is not monitoring her blood sugars at home. Highly encouraged her to do so. I am worried about her lower extremity being swollen, will red, and warm to touch. We will go ahead and get some blood work done and check her A1c if well answer glucose. Will continue trulicity, jardiance, and glipizide, will make adjustments accordingly to the lab results.. Ordered: CBC w/ Auto Diff Comprehensive Metabolic Panel HgbA1c Lipid Panel Microalbumin Level Urine 2. Severe major depression (F32.2: Major depressive disorder, single episode, severe without psychotic features) she is currently on abilify and fluoxetine. Her PHQ-9 score was a 3. Notify fluoxetine seems to be working well with her, will continue the medication as previously prescribed. Ordered: CBC w/ Auto Diff Comprehensive Metabolic Panel HgbA1c Lipid Panel Microalbumin Level Urine 3. Heart failure with preserved ejection fraction (I50.30: Unspecified diastolic (congestive) heart failure) She currently follows up with Dr. Ramirez, lithographic artist. She had an echo last done August 2022 which showed EF of 60% and right atrium enlarged. She also had a stress test done October 2022. She last saw him January 11, 2023. He is well aware of the lower leg edema did do a venous duplex which was negative for reflux and clots. She is already on Lasix. Will go ahead and get her annual blood work at this time to reevaluate labs. Ordered: CBC w/ Auto Diff Comprehensive Metabolic Panel HgbA1c Lipid Panel Microalbumin Level Urine 4. Benign hypertension (I10: Essential (primary) hypertension) The importance of the following were all reviewed with the patient: -Take medications as prescribed. There are simple Li (more content not included)... Normal [facility] Comment on above: Result Comment: Elec tronically Signed By: Yocasta SMITH, CREDIT COLLECTIONS CLERK- UPPER MARKER, Myron Hamilton\.br\Date and Time Signed: 08/11/23 13:07 EST\.br\Electronically Co-Signed By: Safia Greenberg\.br\Date and Time Co-Signed: 08/10/23 17:17 EST Hemoglobin A1Con 08-11-2023 Glucose [Mass/Vol] 108 mg/dL Normal [facility] Comment on above: Result Comment: The ADA and AACC recommend providing the estimated average glucose result to permit better patient understanding of their HBA1c result. Performed By: #### G LYHGB, LIPR, URNMAB ####[facility] [address] [place] [address] Lab Director: Agusto Ferrell MD#### DYLAN ANNE CP, ZFAST ####[facility] [address] [place], [place] [address])[phone] Director: Yury Caba MD HbA1c (Bld) [Mass fraction] 5.4 % Normal 4.0-6.0 [facility] Comment on above: Performed By: #### G LYHGB, LIPR, URNMAB ####[facility] [address] [place] [address] lab Director: Agusto Ferrell MD#### DYLAN ANNE CP, ZFAST ####[facility] [address] [place], [place] [address])[phone] Director: Yury Caba MD Lab Reportson 08-11-2023 Lab Reports [id number] .[id number] Normal [facility] Lipid Panelon 08-11-2023 Cholesterol [Mass/Vol] 206 mg/dL High NINF - 200 mg/dL [facility] Comment on above: Cholesterol Guidelines: <200 Desirable 200-240 Borderline >240 Undesirable Cholesterol in HDL [Mass/Vol] 95 mg/dL 40 - PINF mg/dL [facility] Comment on above: HDL Guidelines: <40 Undesirable 40-59 Borderline >59 Desirable Cholesterol in LDL [Mass/Vol] 67 mg/dL 0 - 130 mg/dL [facility] Comment on above: LDL Guidelines: <100 Desirable 100-129 Near to/above Desirable 130-159 Borderline >159 Undesirable Direct (measured) LDL and calculated LDL are not interchangeable tests. Cholesterol.total/Ch olesterol in HDL [Mass ratio] 2.2 {ratio} NINF - 5 [facility] Interpretation and review of laboratory results Abnormal [facility] Triglyceride [Mass/Vol] 221 mg/dL High NINF - 150 mg/dL [facility] Comment on above: Triglyceride Guidelines: <150 Desirable 150-199 Borderline 200-499 High >499 Very high Based on AHA Guidelines for fasting triglyceride, April 2012. [facility] Lipid Profileon 08-11-2023 Cholesterol [Mass/Vol] 206 mg/dL High <200 [facility] Comment on above: Result Comment: Cholesterol Guidelines: <200 Desirable 200-240 Borderline >240 Undesirable Performed By: #### G LYHGB, LIPR, URNMAB ####[facility] [address] [place] [address] Lab Director: Agusto Ferrell MD#### DYLAN ANNE CP, ZFAST ####[facility] [address] [place] [address] lab Director: Yury Caba MD Cholesterol in HDL [Mass/Vol] 95 mg/dL Normal >40 [facility] Comment on above: Result Comment: HDL Guidelines: <40 Undesirable 40-59 Borderline >59 Desirable Performed By: #### G LYHGB, LIPR, URNMAB ####[facility] [address] [place] [address] Lab Director: Agusto Ferrell MD#### DYLAN ANNE CP, ZFAST ####[facility] [address] [place], [place] [id number] Lab Director: Yury Caba MD Cholesterol in LDL [Mass/Vol] 67 mg/dL Normal 0-130 [facility] Comment on above: Result Comment: LDL Guidelines: <100 Desirable 100-129 Near to/above Desirable 130-159 Borderline >159 Undesirable Direct (measured) LDL and calculated LDL are not interchangeable tests. Performed By: #### G LYHGB, LIPR, URNMAB ####[facility] [address] [place] [address] Lab Director: Agusto Ferrell MD#### DYLAN ANNE, TAINA, ZFAST ####[facility] [address] [place], [place] [phone] Director: Yury Caba MD Cholesterol.total/Ch olesterol in HDL [Mass ratio] 2.2 {ratio} Normal <5 [facility] Comment on above: Performed By: #### G LYHGB, LIPR, URNMAB ####[facility] [address] [place] [address] Lab Director: Agusto Ferrell MD#### DYLAN ANNE, TAINA, ZFAST ####[facility] [address] [place] [address] Lab Director: Yury Caba MD Triglyceride [Mass/Vol] 221 mg/dL High <150 [facility] Comment on above: Result Comment: Triglyceride Guidelines: <150 Desirable 150-199 Borderline 200-499 High >499 Very high Based on AHA Guidelines for fasting triglyceride, April 2012. Performed By: #### G LYHGB, LIPR, URNMAB ####[facility] [address] [place] [address] Lab Director: Agusto Ferrell MD#### DYLAN ANNE CP, ZFAST ####[facility] [address] [place], [place] [phone] Director: Yury Caba MD Microalb.,Random Uron 2023 Creatinine [Mass/Vol] 45.3 mg/dL Normal 28.0-217.0 [facility] Comment on above: Performed By: #### G LYHGB, LIPR, URNMAB ####[facility] [address] [place] [address] Lab Director: Agusto Ferrell MD#### DIME, CDP, CP, ZFAST ####[facility] [address] [place] [address] lab Director: Yury Caba MD Microalb/Creat Ratio Can not be calculated Normal <25 [facility] Comment on above: Performed By: #### G LYHGB, LIPR, URNMAB ####[facility] [address] [place] [address] lab Director: Agusto Ferrell MD#### DIME, CDP, CP, ZFAST ####[facility] [address] [place] [address] lab Director: Yury Caba MD Microalbumin conc. <12 Normal <21 [facility] Comment on above: Performed By: #### G LYHGB, LIPR, URNMAB ####[facility] [address] [place] [address] lab Director: Agusto Ferrell MD#### DIMDarlene, CDP, CP, ZFAST ####[facility] [address] [place] [address] Lab Director: Yury Caba MD Microalbumin, Uron 4 Albumin DL <= 20 mg/L (U) [Mass/Vol] mg/L [facility] - 21 mg/L [facility] Albumin/Creatinine DL <= 20 mg/L (U) [Ratio] Can not be calculated [facility] Creatinine (U) [Mass/Vol] 45.3 mg/dL 28.0 - 217.0 mg/dL [facility] Physician Referralon 024 Physician Referral [id number] Normal [facility] RAD - MISCon 08-11-2023 RAD - MIS [id number] .00TIFF Normal [facility] XR HIP 2-3 VW W PELVIS RIGHT on 08-11-2023 XR HIP 2-3 VW W PELVIS RIGHT EXAM: XR HIP 2-3 VW W PELVIS RIGHT to 01/21/2024 HISTORY: Right hip pain COMPARISON: CT pelvis 02/07/2020 TECHNIQUE: AP view the pelvis and AP and lateral views of the right hip FINDINGS: The pelvis shows no fracture. There is no separation of the symphysis pubis or the sacroiliac joints. There is narrowing of the right hip joint space. Right hip shows no fracture or stress injury. IMPRESSION: Moderate degenerative joint space narrowing involves right hip without an acute osseous abnormality identified. Interpreted by: Zaid Romero MD Signed by: Zaid Romero MD 08/11/23 Final result Normal [facility] XR Pelvis and Hip - right 2 Viewson 08-11-2023 Moderate degenerative joint space narrowing involves right hip without an acute osseous abnormality identified. [facility] EXAM: XR HIP 2-3 VW W PELVIS RIGHT to 01/21/2024 HISTORY: Right hip pain COMPARISON: CT pelvis 02/07/2020 TECHNIQUE: AP view the pelvis and AP and lateral views of the right hip FINDINGS: The pelvis shows no fracture. There is no separation of the symphysis pubis or the sacroiliac joints. There is narrowing of the right hip joint space. Right hip shows no fracture or stress injury. [facility] Zaid Romero MD - 08/11/2023 EXAM: XR HIP 2-3 VW W PELVIS RIGHT to 01/21/2024 HISTORY: Right hip pain COMPARISON: CT pelvis 02/07/2020 TECHNIQUE: AP view the pelvis and AP and lateral views of the right hip FINDINGS: The pelvis shows no fracture. There is no separation of the symphysis pubis or the sacroiliac joints. There is narrowing of the right hip joint space. Right hip shows no fracture or stress injury. IMPRESSION: Moderate degenerative joint space narrowing involves right hip without an acute osseous abnormality identified. [facility] XR Pelvis and Hip - right 2 ViewsOrdered By: Zaid Romero on 08-11-2023 [facility] Work Phone: Ambulatory Visit Summaryon 0 08-10-2023 Ambulatory Visit Summary CARMEN BLEDSOE :1960 Visit Date:08/10/2023 Ambulatory Visit Instructions Your Diagnosis Type 2 diabetes mellitus with morbid obesity Severe major depression Heart failure with preserved ejection fraction Benign hypertension Mixed hyperlipidemia Right hip pain Moderate persistent asthma Obstructive sleep apnea Cigarette smoker Class 3 severe obesity due to excess calories with serious comorbidity in adult BMI 50.0-59.9, adult Lipid screening Medication management Bilateral leg edema Tests Performed XR Hip 2-3 Views Right -- Results Pending -- Please visit your patient portal for your results or contact your primary care physician. Your Care Team Attending Physician - Yocasta SMITH, DARLEEN-Myron VILLATORO Primary Care Physician - Yocasta SMITH, CREDIT COLLECTIONS CLERK-Myron VILLATORO This Is Your Medications List furosemide (furosemide 40 mg Tab) trazodone (traZODONE 50 mg Tab) Contact prescribing physician if questions or concerns Misc Prescription (Alcohol wipes) Misc Prescription (Glucometer) Misc Prescription (Lancets) Misc Prescription (Nebulizer Machine) Misc Prescription (Nebulizer Tubing and Mouthpiece Kit) Misc Prescription (Test Strips) albuterol (Ventolin HFA 90 mcg/inh Aerosol-Adpt) aripiprazole (Abilify 2 mg Tab) celecoxib (CeleBREX 200 mg Cap) cholecalciferol (Vitamin D3 5000 intl units oral capsule) dulaglutide (Trulicity Pen 0.75 mg/0.5 mL subcutaneous solution) empagliflozin (Jardiance 10 mg oral tablet) fluoxetine (FLUoxetine 20 mg Cap) fluticasone-salmetero l (Advair Diskus 100 mcg-50 mcg inhalation powder) glipiZIDE (glipiZIDE 2.5 mg ER Tab) montelukast (Singulair 10 mg Tab) pantoprazole (Pantoprazole [address] Tab) potassium chloride (potassium chloride 20 mEq ER Tab) predniSONE (predniSONE 20 mg Tab) rosuvastatin (Crestor 40 mg Tab) tiotropium (Spiriva Respimat 1.25 mcg/inh inhalation aerosol) tizanidine (tiZANidine 4 mg Tab) varenicline (varenicline 0.5 mg oral tablet) varenicline (varenicline 1 mg oral tablet) Procedures Performed Colonoscopy (03/17/2020), Eye/lens implant bilat, Knee replacement, L foot bunion/reconstruction . Discharge Vitals Temperature (Temporal Artery) 36.6 ?C Heart Rate (Peripheral) 90 Respiratory Rate 20 Blood Pressure 124/70 Height 167 cm Height 66 in Weight 151.4 kg Weight 333.08 lb BMI 54.29 What to do next You Need to Schedule the Following Appointments Follow Up with Yocasta MSN, CREDIT COLLECTIONS CLERK-UPPER MARKER, Myron Hamilton When: In 6 months Comments: chronic care Where: [address] [place] [phone] Someone Will Contact You Regarding These Appointments [facility] Referral, Patient choice/referral by family/friend, Orthopaedics, Zenon Segura, 08/10/23 15:07:00 EST, Right hip pain Medications What How Much When Why Instructions New trazodone (traZODONE 50 mg Tab) 1 Tablets By Mouth Once a day (at bedtime) Pickup at [id number] Unchanged furosemide (furosemide 40 mg Tab) 1 Tablets By Mouth Every day Pickup at [facility] #[id number] Unchanged albuterol (Ventolin HFA 90 mcg/ inh Aerosol-Adpt) 2 Puffs Inhalation Every 6 hours as needed for for wheezing Contact prescribing physician if questions or concerns Unchanged aripiprazole (Abilify 2 mg Tab) 1 Tablets By Mouth Every day Contact prescribing physician if questions or concerns Unchanged celecoxib (CeleBREX 200 mg Cap) 1 Capsules By Mouth 2 times a day as needed for as needed for pain with food Contact prescribing physician if questions or concerns Unchanged cholecalciferol (Vitamin D3 5000 intl units oral capsule) 1 Capsules By Mouth Every day with food Contact prescribing physician if questions or concerns Unchanged dulaglutide (Trulicity Pen 0.75 mg/ 0.5 mL subcutaneous solution) 0.75 Milligram Subcutaneous Every week Type 2 diabetes mellitus with morbid obesity Contact prescribing physician if questions or concerns Unchanged empagliflozin (Jardiance 10 mg oral tablet) 10 Milligram By Mouth Every day Contact prescribing physician if questions or concerns Unchanged fluoxetine (FLUoxetine 20 mg Cap) 2 Capsules By Mouth Every day covering for Krissy Rust Contact prescribing physician if questions or concerns Unchanged fluticasone-salmetero l (Advair Diskus 100 mcg-50 mcg inhalation powder) See instructions Contact prescribing physician if questions or concerns Unchanged glipiZIDE (glipiZIDE 2.5 mg ER Tab) 1 Tablets By Mouth Every day Covering for Krissy Rust Contact prescribing physician if questions or concerns Unchanged Misc Prescription (Alcohol wipes) See instructions Use to check BS daily dx E11.9 Contact prescribing physician if questions or concerns Unchanged Misc Prescription (Glucometer) See instructions Glucometer to test BS TID and PRN dx E11.9 Contact prescribing physician if questions or concerns Unchanged Misc Prescription (Lancets) See instructions Use to check BS daily dx E11.9 Contact prescribing (more content not included)... Normal [facility] Ambulatory Visit Summary CARMEN BLEDSOE :1960 Visit Date:08/10/2023 Ambulatory Visit Instructions Your Diagnosis Type 2 diabetes mellitus with morbid obesity Severe major depression Heart failure with preserved ejection fraction Benign hypertension Mixed hyperlipidemia Right hip pain Moderate persistent asthma Obstructive sleep apnea Cigarette smoker Class 3 severe obesity due to excess calories with serious comorbidity in adult BMI 50.0-59.9, adult Lipid screening Medication management Bilateral leg edema Tests Performed XR Hip 2-3 Views Right -- Results Pending -- Please visit your patient portal for your results or contact your primary care physician. Your Care Team Attending Physician - Yocasta SMITH, CREDIT COLLECTIONS CLERK-Myron VILLATORO Primary Care Physician - Yocasta SMITH, CREDIT COLLECTIONS CLERK-Myron VILLATORO This Is Your Medications List furosemide (furosemide 40 mg Tab) trazodone (traZODONE 50 mg Tab) Contact prescribing physician if questions or concerns Misc Prescription (Alcohol wipes) Misc Prescription (Glucometer) Misc Prescription (Lancets) Misc Prescription (Nebulizer Machine) Misc Prescription (Nebulizer Tubing and Mouthpiece Kit) Misc Prescription (Test Strips) albuterol (Ventolin HFA 90 mcg/inh Aerosol-Adpt) aripiprazole (Abilify 2 mg Tab) celecoxib (CeleBREX 200 mg Cap) cholecalciferol (Vitamin D3 5000 intl units oral capsule) dulaglutide (Trulicity Pen 0.75 mg/0.5 mL subcutaneous solution) empagliflozin (Jardiance 10 mg oral tablet) fluoxetine (FLUoxetine 20 mg Cap) fluticasone-salmetero l (Advair Diskus 100 mcg-50 mcg inhalation powder) glipiZIDE (glipiZIDE 2.5 mg ER Tab) montelukast (Singulair 10 mg Tab) pantoprazole (Pantoprazole [address] Tab) potassium chloride (potassium chloride 20 mEq ER Tab) predniSONE (predniSONE 20 mg Tab) rosuvastatin (Crestor 40 mg Tab) tiotropium (Spiriva Respimat 1.25 mcg/inh inhalation aerosol) tizanidine (tiZANidine 4 mg Tab) varenicline (varenicline 0.5 mg oral tablet) varenicline (varenicline 1 mg oral tablet) Procedures Performed Colonoscopy (03/17/2020), Eye/lens implant bilat, Knee replacement, L foot bunion/reconstruction . Discharge Vitals Temperature (Temporal Artery) 36.6 ?C Heart Rate (Peripheral) 90 Respiratory Rate 20 Blood Pressure 124/70 Height 167 cm Height 66 in Weight 151.4 kg Weight 333.08 lb BMI 54.29 What to do next You Need to Schedule the Following Appointments Follow Up with Yocasta SMITH, CREDIT COLLECTIONS CLERK-UPPER MARKER, Myron Hamilton When: In 6 months Comments: chronic care Where: [address] [place] [phone] Someone Will Contact You Regarding These Appointments [facility] [place]ulatory Referral, Patient choice/referral by family/friend, Orthopaedics, Zenon Segura, 08/10/23 15:07:00 EST, Right hip pain Medications What How Much When Why Instructions New trazodone (traZODONE 50 mg Tab) 1 Tablets By Mouth Once a day (at bedtime) Pickup at [facility] #[id number] Unchanged furosemide (furosemide 40 mg Tab) 1 Tablets By Mouth Every day Pickup at [facility] #[id number] Unchanged albuterol (Ventolin HFA 90 mcg/ inh Aerosol-Adpt) 2 Puffs Inhalation Every 6 hours as needed for for wheezing Contact prescribing physician if questions or concerns Unchanged aripiprazole (Abilify 2 mg Tab) 1 Tablets By Mouth Every day Contact prescribing physician if questions or concerns Unchanged celecoxib (CeleBREX 200 mg Cap) 1 Capsules By Mouth 2 times a day as needed for as needed for pain with food Contact prescribing physician if questions or concerns Unchanged cholecalciferol (Vitamin D3 5000 intl units oral capsule) 1 Capsules By Mouth Every day with food Contact prescribing physician if questions or concerns Unchanged dulaglutide (Trulicity Pen 0.75 mg/ 0.5 mL subcutaneous solution) 0.75 Milligram Subcutaneous Every week Type 2 diabetes mellitus with morbid obesity Contact prescribing physician if questions or concerns Unchanged empagliflozin (Jardiance 10 mg oral tablet) 10 Milligram By Mouth Every day Contact prescribing physician if questions or concerns Unchanged fluoxetine (FLUoxetine 20 mg Cap) 2 Capsules By Mouth Every day covering for Krissy Rust Contact prescribing physician if questions or concerns Unchanged fluticasone-salmetero l (Advair Diskus 100 mcg-50 mcg inhalation powder) See instructions Contact prescribing physician if questions or concerns Unchanged glipiZIDE (glipiZIDE 2.5 mg ER Tab) 1 Tablets By Mouth Every day Covering for Krissy Rust Contact prescribing physician if questions or concerns Unchanged Misc Prescription (Alcohol wipes) See instructions Use to check BS daily dx E11.9 Contact prescribing physician if questions or concerns Unchanged Misc Prescription (Glucometer) See instructions Glucometer to test BS TID and PRN dx E11.9 Contact prescribing physician if questions or concerns Unchanged Misc Prescription (Lancets) See instructions Use to check BS daily dx E11.9 Contact prescribing (more content not included)... Normal [facility] CBC with Auto Differentialon 08-10-2023 Basophils (Bld) [#/Vol] 0.03 10*3/uL [facility] Basophils/100 WBC (Bld) 1 % 0 - 2 % [facility] Eosinophils (Bld) [#/Vol] 0.03 10*3/uL [facility] Eosinophils/100 WBC (Bld) 1 % 0 - 5 % [facility] Erythrocyte distribution width (RBC) [Ratio] 14.6 % 12.1 - 15.2 % [facility] Hematocrit (Bld) [Volume fraction] 38.8 % 36.0 - 46.0 % [facility] Hemoglobin (Bld) [Mass/Vol] 12.8 g/dL 12.0 - 16.0 g/dL [facility] Immature granulocytes (Bld) [#/Vol] 0.01 10*3/uL [facility] Immature granulocytes/100 WBC (Bld) 0 % 0 - 5 % [facility] Interpretation and review of laboratory results Abnormal [facility] Lymphocytes/100 WBC (Bld) 22 % 15 - 40 % [facility] Lymphocytes/100 WBC (Bld) 0.98 % Low [facility] MCH (RBC) [Entitic mass] 33.9 pg 26.0 - 34.0 pg [facility] MCHC (RBC) [Mass/Vol] 33.0 g/dL 31.0 - 37.0 g/dL [facility] MCV (RBC) [Entitic vol] 102.6 fL High 80.0 - 100.0 fL [facility] Monocytes/100 WBC (Bld) 8 % 4 - 8 % [facility] Monocytes/100 WBC (Bld) 0.34 % [facility] Neutrophils/100 WBC (Bld) 68 % 47 - 75 % [facility] Platelet mean volume (Bld) [Entitic vol] 9.0 fL 6.0 - 12.0 fL [facility] Platelets (Bld) [#/Vol] 192 10*3/uL [facility] RBC (Bld) [#/Vol] 3.78 10*6/uL Low 4.00 - 5.20 m/uL [facility] Segmented neutrophils/100 WBC (Bld) 2.99 % [facility] WBC other (Bld) [#/Vol] 4.4 [facility] CBC with Diffon 08-10-2023 Abs. Basophil 0.03 k/uL Normal 0.00-0.20 [facility] Comment on above: Performed By: #### G LYHGB, LIPR, URNMAB ####[facility] [address] [place] [address] Lab Director: Agusto Ferrell MD#### DAYANA, DYLAN, CP, ZFAST ####[facility] [address] [place] [address] Lab Director: Yury Caba MD Abs.Imm.Granulocyte 0.01 k/uL Normal 0.00-0.30 [facility] Comment on above: Performed By: #### G LYHGB, LIPR, URNMAB ####[place] [address] Lab Director: Agusto Ferrell MD#### DIME, CDP, CP, ZFAST ####[facility] [address] [place], [place] [address])[phone] Director: Yury Caba MD Abs.Neutrophil (Seg) 2.99 k/uL Normal 2.5-7.0 [facility] Comment on above: Performed By: #### G LYHGB, LIPR, URNMAB ####[place], [place] [address])[phone] Director: Agusto Ferrell MD#### DIME, CDP, CP, ZFAST ####[facility] [address] [place], [place] [address])[phone] Director: Yury Caba MD Basophils/100 WBC (Bld) 1 % Normal 0-2 [facility] Comment on above: Performed By: #### G LYHGB, LIPR, URNMAB ####[place] [address] Lab Director: Agusto Ferrell MD#### DAYANA, CDP, CP, ZFAST ####[facility] [address] [place], [place] [address])[phone] Director: Yury Caba MD Eosinophils (Bld) [#/Vol] 0.03 10*3/uL Normal 0.00-0.40 [facility] Comment on above: Performed By: #### G LYHGB, LIPR, URNMAB ####[place] [address] Lab Director: Agusto Ferrell MD#### DIME, CDP, CP, ZFAST ####[facility] Vgn3731 [place] [address] Lab Director: Yury Caba MD Eosinophils/100 WBC (Bld) 1 % Normal 0-5 [facility] Comment on above: Performed By: #### G LYHGB, LIPR, URNMAB ####[facility] S[address] [place], [place] [id number] Lab Director: Agusto Ferrell MD#### DIME, CDP, CP, ZFAST ####[facility] Sax[address] [place], [place] [id number] Lab Director: Yury Caba MD Erythrocyte distribution width (RBC) [Ratio] 14.6 % Normal 12.1-15.2 [facility] Comment on above: Performed By: #### G LYHGB, LIPR, URNMAB ####[address] [address] Lab Director: Agusto Ferrell MD#### DIME, CDP, CP, ZFAST ####[facility] Xjn1034 [place], [place] [id number] Lab Director: Yury Caba MD Hematocrit (Bld) [Volume fraction] 38.8 % Normal 36.0-46.0 [facility] Comment on above: Performed By: #### G LYHGB, LIPR, URNMAB ####[address] [address] Lab Director: Agusto Ferrell MD#### DIME, CDP, CP, ZFAST ####[facility] Bee0346 [place], [place] [id number] Lab Director: Yury Caba MD Hemoglobin (Bld) [Mass/Vol] 12.8 g/dL Normal 12.0-16.0 [facility] Comment on above: Performed By: #### G LYHGB, LIPR, URNMAB ####[address] [place] [address] Lab Director: Agusto Ferrell MD#### DIMDarlene, DYLAN, CP, ZFAST ####[facility] Azc9177 [place] [address] Lab Director: Yury Caba MD Immature granulocytes/100 WBC (Bld) 0 % Normal 0-5 [facility] Comment on above: Performed By: #### G LYHGB, LIPR, URNMAB ####[facility] Qwebfqrscekb0527 [place] [address] Lab Director: Agusto Ferrell MD#### DIMDarlene, CDP, CP, ZFAST ####[facility] Rgp7690 [place], [place] [phone] Lab Director: Yury Caba MD Lymphocytes (Bld) [#/Vol] 0.98 10*3/uL Low 1.00-4.80 [facility] Comment on above: Performed By: #### G LYHGB, LIPR, URNMAB ####[facility] [place] [address] Lab Director: Agusto Ferrell MD#### DIMDarlene, DYLAN, CP, ZFAST ####[facility] Qfd2080 [place] [address] Lab Director: Yury Caba MD Lymphocytes/100 WBC (Bld) 22 % Normal 15-40 [facility] Comment on above: Performed By: #### G LYHGB, LIPR, URNMAB ####[facility] Iwsmff[address]obvk6444 [place] [address] Lab Director: Agusto Ferrell MD#### DIME, CDP, CP, ZFAST ####[facility] Abd0234 [place], [place] [phone] Director: Yury Caba MD MCH (RBC) [Entitic mass] 33.9 pg Normal 26.0-34.0 [facility] Comment on above: Performed By: #### G LYHGB, LIPR, URNMAB ####[address] [place] [address] Lab Director: Agusto Ferrell MD#### DAYANA, DYLAN, CP, ZFAST ####[facility] Jqu4700 [place] [address] Lab Director: Yury Caba MD MCHC (RBC) [Mass/Vol] 33.0 g/dL Normal 31.0-37.0 [facility] Comment on above: Performed By: #### G LYHGB, LIPR, URNMAB ####[address] [address] Lab Director: Agusto Ferrell MD#### DAYANA, DYLAN, CP, ZFAST ####[facility] [address] [place] [phone] Lab Director: Yury Caba MD MCV (RBC) [Entitic vol] 102.6 fL High 80.0-100.0 [facility] Comment on above: Performed By: #### G LYHGB, LIPR, URNMAB ####[address] [address] Lab Director: Agusto Ferrell MD#### DYLAN ANNE, CP, ZFAST ####[facility] Otu2614 [place] [address] Lab Director: Yury Caba MD Monocytes (Bld) [#/Vol] 0.34 10*3/uL Normal 0.00-1.00 [facility] Comment on above: Performed By: #### G LYHGB, LIPR, URNMAB ####[address] [place], [place] [phone] Lab Director: Agusto Ferrell MD#### DIME, CDP, CP, ZFAST ####[facility] Ncf4897 [place] [address] Lab Director: Yury Caba MD Monocytes/100 WBC (Bld) 8 % Normal 4-8 [facility] Comment on above: Performed By: #### G LYHGB, LIPR, URNMAB ####[facility] [address]fa[address] [place], [place] [address])[phone] Director: Agusto Ferrell MD#### DIME, CDP, CP, ZFAST ####[facility] Ulj[address] [place], [place] [address])[phone] Director: Yury Caba MD Neutrophil (Seg) 68 % Normal 47-75 [facility] Comment on above: Performed By: #### G LYHGB, LIPR, URNMAB ####[place] [address] Lab Director: Agusto Ferrell MD#### DIME, CDP, CP, ZFAST ####[facility] Nsm3644 [place], [place] [address])[phone] Director: Yury Caba MD Platelet mean volume (Bld) [Entitic vol] 9.0 fL Normal 6.0-12.0 [facility] Comment on above: Performed By: #### G LYHGB, LIPR, URNMAB ####[address] [place] [address] Lab Director: Agusto Ferrell MD#### DIME, CDP, CP, ZFAST ####[facility] Hay[address] [place] [address] Lab Director: Yury Caba MD Platelets (Bld) [#/Vol] 192 10*3/uL Normal 140-450 [facility] Comment on above: Performed By: #### G LYHGB, LIPR, URNMAB ####[address] [place] [address] Lab Director: Agusto Ferrell MD#### DIME, CDP, CP, ZFAST ####[facility] Tmk6500 [place] [address] Lab Director: Yury Caba MD RBC (Bld) [#/Vol] 3.78 10*6/uL Low 4.00-5.20 [facility] Comment on above: Performed By: #### G LYHGB, LIPR, URNMAB ####[facility] [address]ia[address] [place] [address] Lab Director: Agusto Ferrell MD#### DIME, CDP, CP, ZFAST ####[facility] Gfx6661 [place] [address] Lab Director: Yury Caba MD WBC (Bld) [#/Vol] 4.4 10*3/uL Normal 3.5-11.0 [facility] Comment on above: Performed By: #### G LYHGB, LIPR, URNMAB ####[facility] Ig[address]mrwlml0238 [place] [address] Lab Director: Agusto Ferrell MD#### DIME, CDP, CP, ZFAST ####[facility] Vcv2273 [place] [address] Lab Director: Yury Caba MD Comp Metabolic Profon 2023 Albumin [Mass/Vol] 4.3 g/dL Normal 3.5-5.2 [facility] Comment on above: Performed By: #### G LYHGB, LIPR, URNMAB ####[facility] Qe[address]ys[address] [place], [place] [phone] Director: Agusto Ferrell MD#### DIME, CDP, CP, ZFAST ####[facility] Psv7569 [place] [address] Lab Director: Yury Caba MD Alkaline Phos 169 U/L High 35-104 [facility] Comment on above: Performed By: #### G LYHGB, LIPR, URNMAB ####[facility] [address]cfli5633 [place] [address] Lab Director: Agusto Ferrell MD#### DAYANA, DYLAN, CP, ZFAST ####[facility] Qul0962 [place], [place] [phone] Director: Yury Caba MD ALT [Catalytic activity/Vol] 84 U/L High 5-33 [facility] Comment on above: Performed By: #### G LYHGB, LIPR, URNMAB ####[address] [place] [address] Lab Director: Agusto Ferrell MD#### DYLAN ANNE, CP, ZFAST ####[facility] Wsw0889 [place] [address] Lab Director: Yury Caba MD Anion gap [Moles/Vol] 13 mmol/L Normal 9-17 [facility] Comment on above: Performed By: #### G LYHGB, LIPR, URNMAB ####[facility] [address]dzkc3544 [place] [address] Lab Director: Agusto Ferrell MD#### DIMDarlene, DYLAN, CP, ZFAST ####[facility] Uhe2050 [place] [address] Lab Director: Yury Caba MD AST [Catalytic activity/Vol] 83 U/L High <32 [facility] Comment on above: Performed By: #### G LYHGB, LIPR, URNMAB ####[facility] [address]tud[address]175 [place] [address] Lab Director: Agusto Ferrell MD#### DIME, CDP, CP, ZFAST ####[facility] Ved2543 [place] [address] lab Director: Yury Caba MD Bilirubin [Mass/Vol] 0.4 mg/dL Normal 0.3-1.2 [facility] Comment on above: Performed By: #### G LYHGB, LIPR, URNMAB ####[facility] [address]ke8577 [place] [address] Lab Director: Agusto Ferrell MD#### DIME, CDP, CP, ZFAST ####[facility] Xbl5900 [place] [address]([facility])[phone] Director: Yury Caba MD BUN/CRE Ratio 17 Normal 9-20 [facility] Comment on above: Performed By: #### G LYHGB, LIPR, URNMAB ####[address] [address] Lab Director: Agusto Ferrell MD#### DAYANA, CDP, CP, ZFAST ####[facility] Zoc8495 [place], [place] 1474690 lab Director: Yury Caba MD Calcium [Mass/Vol] 9.3 mg/dL Normal 8.6-10.4 [facility] Comment on above: Performed By: #### G LYHGB, LIPR, URNMAB ####[facility] [address] [place] [address] Lab Director: Agusto Ferrell MD#### DIME, CDP, CP, ZFAST ####[facility] Bdl5603 [place] [address] Lab Director: Yury Caba MD Chloride [Moles/Vol] 98 mmol/L Normal 98-107 [facility] Comment on above: Performed By: #### G LYHGB, LIPR, URNMAB ####[address] [place] [address] Lab Director: Agusto Ferrell MD#### DYLAN ANNE CP, ZFAST ####[facility] Gyh4038 [place] [address] Lab Director: Yury Caba MD CO2 [Moles/Vol] 26 mmol/L Normal 20-[address] [facility] Comment on above: Performed By: #### G LYHGB, LIPR, URNMAB ####[facility] [address]qs1240 [place] [address] Lab Director: Agusto Ferrell MD#### DYLAN ANNE CP, ZFAST ####[facility] Tml0284 [place], [place] [phone] Lab Director: Yury Caba MD Creatinine [Mass/Vol] 0.6 mg/dL Normal 0.5-0.9 [facility] Comment on above: Performed By: #### G LYHGB, LIPR, URNMAB ####[address] [address] Lab Director: Agusto Ferrell MD#### DYLAN ANNE, CP, ZFAST ####[facility] Qhc9145 [place] [address] Lab Director: Yury Caba MD GFR/1.73 sq M.predicted among non-blacks MDRD (S/P/Bld) [Vol rate/Area] mL/min/{1.73_m2} Normal >60 [facility] Comment on above: Result Comment: These results are not intended for use in patients <18 years of age. eGFR results are calculated without a race factor using the 2020 CKD-EPI equation. Careful clinical correlation is recommended, particularly when comparing to results calculated using previous equations. The CKD-EPI equation is less accurate in patients with extremes of muscle mass, extra-renal metabolism of creatine, excessive creatine ingestion, or following therapy that affects renal tubular secretion. Performed By: #### G LYHGB, LIPR, URNMAB ####[facility] [address]fy[address]99 [place] [address] Lab Director: Agusto Ferrell MD#### DYLAN ANNE, CP, ZFAST ####[facility] S[address] [place] [address] Lab Director: Yury Caba MD Glucose [Mass/Vol] 91 mg/dL Normal 70-99 [facility] Comment on above: Performed By: #### G LYHGB, LIPR, URNMAB ####[facility] M[address]uwc9985 [place] [address] Lab Director: Agusto Ferrell MD#### DYLAN ANNE, CP, ZFAST ####[facility] Ipr7658 [place], [place] [phone] Director: Yury Caba MD Potassium [Moles/Vol] 4.3 mmol/L Normal 3.7-5.3 [facility] Comment on above: Performed By: #### G LYHGB, LIPR, URNMAB ####[facility] [address]j7482 [place] [address] Lab Director: Agusto Ferrell MD#### DYLAN ANNE, CP, ZFAST ####[facility] [address] [place] [address] Lab Director: Yury Caba MD Protein [Mass/Vol] 7.2 g/dL Normal 6.4-8.3 [facility] Comment on above: Performed By: #### G LYHGB, LIPR, URNMAB ####[facility] [address] [place], [place] [phone] Director: Agusto Ferrell MD#### DAYANA, DYLAN, CP, ZFAST ####[facility] Er[address] [place], [place] [phone] Director: Yury Caba MD Sodium [Moles/Vol] 137 mmol/L Normal 135-144 [facility] Comment on above: Performed By: #### G LYHGB, LIPR, URNMAB ####[facility] K[address]jbv[address]152 [place], [place] 1093108 Lab Director: Agusto Ferrell MD#### DYLAN ANNE, CP, ZFAST ####[facility] Jzk6828 [place], [place] [phone] lab Director: Yury Caba MD Urea nitrogen [Mass/Vol] 10 mg/dL Normal 8-23 [facility] Comment on above: Performed By: #### G LYHGB, LIPR, URNMAB ####[facility] F[address] [place], [place] [phone] lab Director: Agusto Ferrell MD#### DYLAN ANNE, CP, ZFAST ####[facility] Ing[address] [place], [place] [phone] lab Director: Yury Caba MD Comprehensive Metabolic Pane [facility] 08-10-2023 Albumin [Mass/Vol] 4.3 g/dL 3.5 - 5.2 g/dL [facility] ALP [Catalytic activity/Vol] 169 U/L High 35 - 104 U/L [facility] ALT [Catalytic activity/Vol] 84 U/L High 5 - 33 U/L [facility] Anion gap [Moles/Vol] 13 mmol/L 9 - 17 mmol/L [facility] AST [Catalytic activity/Vol] 83 U/L High NINF - 32 U/L [facility] Bilirubin [Mass/Vol] 0.4 mg/dL 0.3 - 1.2 mg/dL [facility] Calcium [Mass/Vol] 9.3 mg/dL 8.6 - 10.4 mg/dL [facility] Chloride [Moles/Vol] 98 mmol/L 98 - 107 mmol/L [facility] CO2 [Moles/Vol] 26 mmol/L 20 - 31 mmol/L [facility] Creatinine [Mass/Vol] 0.6 mg/dL 0.5 - 0.9 mg/dL [facility] GFR/1.73 sq M.predicted MDRD (S/P/Bld) [Vol rate/Area] - PINF [facility] Comment on above: These results are not intended for use in patients <18 years of age. eGFR results are calculated without a race factor using the 2020 CKD-EPI equation. Careful clinical correlation is recommended, particularly when comparing to results calculated using previous equations. The CKD-EPI equation is less accurate in patients with extremes of muscle mass, extra-renal metabolism of creatine, excessive creatine ingestion, or following therapy that affects renal tubular secretion. Glucose [Mass/Vol] 91 mg/dL 70 - 99 mg/dL [facility] Interpretation and review of laboratory results Abnormal [facility] Potassium [Moles/Vol] 4.3 mmol/L 3.7 - 5.3 mmol/L [facility] Protein [Mass/Vol] 7.2 g/dL 6.4 - 8.3 g/dL [facility] Sodium [Moles/Vol] 137 mmol/L 135 - 144 mmol/L [facility] Urea nitrogen [Mass/Vol] 10 mg/dL 8 - 23 mg/dL [facility] Urea nitrogen/Creatinine [Mass ratio] 17 mg/mg 9 - 20 [facility] D-Dimer Teston 08-10-2023 D-Dimer Test 0.51 ug/mL FEU Normal 0.00-0.59 [facility] Comment on above: Result Comment: When combined with a low clinical probability, a D dimer value of <0.50 ug/mL FEU is considered negative for DVT and PE (negative predictive value of 98%, sensitivity of 97%). If this test is not being used to help rule out DVT and PE, then the following reference range should be utilized: 0.00 - 0.59 ug/mL FEU. The D-Dimer assay is intended for use as an aid in the diagnosis of venous thromboembolism (DVT and PE) and the results should be interpreted in conjunction with the patient's medical history, clinical presentation, and other findings. Elevated levels of D-dimer activity can be seen in any state of coagulation activation and is not recommended in patients with therapeutic dose anticoagulant therapy for >24 hours, fibrinolytic therapy within the previous 7 days, trauma or surgery within the previous 4 weeks, disseminated malignancies, aortic aneurysm, sepsis, severe infections, pneumonia, severe skin infections, liver cirrhosis, advanced age, coronary disease, diabetes, and . A very low percentage of patients with DVT may yield D-dimer results below the cutoff of 0.5 ug/mL FEU. This is known to be more prevalent in patients with distal DVT. Performed By: #### G LYHGB, LIPR, URNMAB ####[address] [place] [address] Lab Director: Agusto Ferrell MD#### DYLAN ANNE, CP, ZFAST ####[facility] [address] [place], [place] [phone] lab Director: Yury Caba MD D-Dimer, [facility] Fibrin D-dimer FEU (PPP) [Mass/Vol] 0.51 [facility] Comment on above: When combined with a low clinical probability, a D dimer value of <0.50 ug/mL FEU is considered negative for DVT and PE (negative predictive value of 98%, sensitivity of 97%). If this test is not being used to help rule out DVT and PE, then the following reference range should be utilized: 0.00 - 0.59 ug/mL FEU. The D-Dimer assay is intended for use as an aid in the diagnosis of venous thromboembolism (DVT and PE) and the results should be interpreted in conjunction with the patient's medical history, clinical presentation, and other findings. Elevated levels of D-dimer activity can be seen in any state of coagulation activation and is not recommended in patients with therapeutic dose anticoagulant therapy for >24 hours, fibrinolytic therapy within the previous 7 days, trauma or surgery within the previous 4 weeks, disseminated malignancies, aortic aneurysm, sepsis, severe infections, pneumonia, severe skin infections, liver cirrhosis, advanced age, coronary disease, diabetes, and . A very low percentage of patients with DVT may yield D-dimer results below the cutoff of 0.5 ug/mL FEU. This is known to be more prevalent in patients with distal DVT. [facility] Patient fasting?on 4 Patient fasting? Patient Refused Normal [facility] Comment on above: Performed By: #### G LYHGB, LIPR, URNMAB ####[facility] [address] [place] [address] lab Director: Agusto Ferrell MD#### DAYANA, DYLAN, CP, ZFAST ####[facility] [address] [place], [place] [phone] lab Director: Yury Caba MD XR Pelvis and Hip - right 2 Viewson 08-10-2023 Radiology Study observation (narrative) [facility] Patient Educationon 08-09-19 24 Patient Education Cardiovascular Hypertension, Adult High blood pressure (hypertension) is when the force of blood pumping through the arteries is too strong. The arteries are the blood vessels that carry blood from the heart throughout the body. Hypertension forces the heart to work harder to pump blood and may cause arteries to become narrow or stiff. Untreated or uncontrolled hypertension can lead to a heart attack, heart failure, a stroke, kidney disease, and other problems. A blood pressure reading consists of a higher number over a lower number. Ideally, your blood pressure should be below 120/80. The first ( top ) number is called the systolic pressure. It is a measure of the pressure in your arteries as your heart beats. The second ( bottom ) number is called the diastolic pressure. It is a measure of the pressure in your arteries as the heart relaxes. What are the causes? The exact cause of this condition is not known. There are some conditions that result in high blood pressure. What increases the risk? Certain factors may make you more likely to develop high blood pressure. Some of these risk factors are under your control, including: ? Smoking. ? Not getting enough exercise or physical activity. ? Being overweight. ? Having too much fat, sugar, calories, or salt (sodium) in your diet. ? Drinking too much alcohol. Other risk factors include: ? Having a personal history of heart disease, diabetes, high cholesterol, or kidney disease. ? Stress. ? Having a family history of high blood pressure and high cholesterol. ? Having obstructive sleep apnea. ? Age. The risk increases with age. What are the signs or symptoms? High blood pressure may not cause symptoms. Very high blood pressure (hypertensive crisis) may cause: ? Headache. ? Fast or irregular heartbeats (palpitations). ? Shortness of breath. ? Nosebleed. ? Nausea and vomiting. ? Vision changes. ? Severe chest pain, dizziness, and seizures. How is this diagnosed? This condition is diagnosed by measuring your blood pressure while you are seated, with your arm resting on a flat surface, your legs uncrossed, and your feet flat on the floor. The cuff of the blood pressure monitor will be placed directly against the skin of your upper arm at the level of your heart. Blood pressure should be measured at least twice using the same arm. Certain conditions can cause a difference in blood pressure between your right and left arms. If you have a high blood pressure reading during one visit or you have normal blood pressure with other risk factors, you may be asked to: ? Return on a different day to have your blood pressure checked again. ? Monitor your blood pressure at home for 1 week or longer. If you are diagnosed with hypertension, you may have other blood or imaging tests to help your health care provider understand your overall risk for other conditions. How is this treated? This condition is treated by making healthy lifestyle changes, such as eating healthy foods, exercising more, and reducing your alcohol intake. You may be referred for counseling on a healthy diet and physical activity. Your health care provider may prescribe medicine if lifestyle changes are not enough to get your blood pressure under control and if: ? Your systolic blood pressure is above 130. ? Your diastolic blood pressure is above 80. Your personal target blood pressure may vary depending on your medical conditions, your age, and other factors. Follow these instructions at home: Eating and drinking ? Eat a diet that is high in fiber and potassium, and low in sodium, added sugar, and fat. An example of this eating plan is called the DASH diet. DASH stands for Dietary Approaches to Stop Hypertension. To eat this way: ? Eat plenty of fresh fruits and vegetables. Try to fill one half of your plate at each meal with fruits and vegetables. ? Eat whole grains, such as whole-wheat pasta, brown rice, or whole-grain bread. Fill about one fourth of your plate with whole grains. ? Eat or drink low-fat dairy products, such as skim milk or low-fat yogurt. ? Avoid fatty cuts of meat, processed or cured meats, and poultry with skin. Fill about one fourth of your plate with lean proteins, such as fish, chicken without skin, beans, eggs, or tofu. ? Avoid pre-made and processed foods. These tend to be higher in sodium, added sugar, and fat. ? Reduce your daily sodium intake. Many people with hypertension should eat less than 1,500 mg of sodium a day. ? Do not drink alcohol if: ? Your health care provider tells you not to drink. ? You are , may be , or are planning to become . ? If you drink alcohol: ? Limit how much you have to: ? 0?1 drink a day for women. ? 0?2 drinks a day for men. ? Know how much alcohol is in your drink. In the [place] one drink equals one 12 oz bottle of beer (355 mL), one 5 oz glass of wine (148 mL), or one 1? oz glass (more content not included)... Normal [facility] Ambulatory Visit Summaryon 1 07-09-2022 Ambulatory Visit Summary CARMEN BLEDSOE :1960 Visit Date:05/09/2023 Ambulatory Visit Instructions Your Diagnosis BMI 50.0-59.9, adult Class 3 severe obesity due to excess calories with serious comorbidity in adult Lumbar back pain with radiculopathy affecting right lower extremity Your Care Team Attending Physician - Magan LEONARD, Ansley Schneider Primary Care Physician - Yocasta MSN, CREDIT COLLECTIONS CLERK-UPPER MARKER, Myron Hamilton This Is Your Medications List Misc Prescription (Alcohol wipes) Misc Prescription (Glucometer) Misc Prescription (Lancets) Misc Prescription (Nebulizer Machine) Misc Prescription (Nebulizer Tubing and Mouthpiece Kit) Misc Prescription (Test Strips) albuterol (Ventolin HFA 90 mcg/inh Aerosol-Adpt) aripiprazole (Abilify 2 mg Tab) cholecalciferol (Vitamin D3 5000 intl units oral capsule) dulaglutide (Trulicity Pen 0.75 mg/0.5 mL subcutaneous solution) empagliflozin (Jardiance 10 mg oral tablet) fluoxetine (FLUoxetine 20 mg Cap) fluticasone-salmetero l (Advair Diskus 100 mcg-50 mcg inhalation powder) furosemide (furosemide 40 mg Tab) glipiZIDE (glipiZIDE 2.5 mg ER Tab) montelukast (Singulair 10 mg Tab) pantoprazole (Pantoprazole [address] Tab) potassium chloride (potassium chloride 20 mEq ER Tab) predniSONE (predniSONE 20 mg Tab) rosuvastatin (Crestor 40 mg Tab) sacubitril-valsartan (Entresto 24 mg-26 mg oral tablet) tiotropium (Spiriva Respimat 1.25 mcg/inh inhalation aerosol) tizanidine (tiZANidine 4 mg Tab) varenicline (varenicline 0.5 mg oral tablet) varenicline (varenicline 1 mg oral tablet) Procedures Performed Colonoscopy (03/17/2020), Eye/lens implant bilat, Knee replacement, L foot bunion/reconstruction . Discharge Vitals Temperature (Temporal Artery) 36.8 ?C Heart Rate (Peripheral) 77 Respiratory Rate 18 Blood Pressure 120/74 Height 167 cm Height 66 in Weight 145.6 kg Weight 320.32 lb BMI 52.21 What to do next Scheduled Follow-Up Appointments Tuesday 1:00 PM EST With: Where: [facility] Tuesday 2:00 PM EST With: Yocasta MSN, CREDIT COLLECTIONS CLERK-UPPER MARKER, Myron Hamilton Where: [facility] [place] [facility] Family Medicine Office/Clini c Noteon 05-09-2023 Family Medicine Office/Clinic Note Chief Complaint Leg pain- Hip to knee x1 month HPI Staff Back Pain Onset: 1 month Injury: no Location: _ right hip to knee Characteristics: sharp Relief: some movement, Aleve will help some Severity: 04/12 Hx of back issues? no Numbness/Tingling: Numbness in foot Weakness: yes Gait: now using a cane to walk Was in ER, given pain shot only relieved for 4hrs History of Present Illness I have reviewed staff HPI and it is correct. Carmen Bledsoe is a 62-year-old female presents to the office for concerns regarding acute back pain with right sided radiculopathy that has been going on for approximately 1 month. The patient was previously seen in the office on 04/27/2023 for sciatic pain. The patient was prescribed a course of steroids and muscle relaxer. Patient presented to the emergency department on 04/29/2023 with continued concerns. Patient was given Toradol injection while in the emergency room with minimal work-up completed. Patient notes some improvement with Aleve rates the severity as a 10 out of 10 with some numbness and tingling in the foot, in her right foot. She also notes some weaknesses. The patient reports a 1-month history of numbness and tingling in her right foot. She mentions a similar episode 15 years ago but now localized from her hip to knee. She sought emergency care, receiving a pain shot that provided temporary relief for 4 hours. Despite taking the maximum recommended dose of Aleve 3 tablets per day simultaneously, the pain remains largely unrelieved. She described it as sharp, and exacerbated in the morning, severely impeding her ability to walk. The pain is mitigated temporarily by sitting in a recliner and using a heating pad, which offers better relief compared to a cold pad. She is scheduled for her third chiropractic session on 05/10/2023. She underwent bilateral knee replacements 6 weeks apart. She denies recent falls, injuries, or hip surgeries. She has been taking 6 steroids without substantial improvement. She took muscle relaxers, though offering slight relief, also caused drowsiness. She denies there is any swelling on the affected side compared to the other, mentioning she cannot discern any difference because it was fat. She denies experiencing any back pain. She is uncertain about proper cane usage. Her blood sugar levels have remained stable with the use of steroids. She requires a refill for her tizanidine 4 mg. Patient has no other questions or concerns at this time. Review of Systems PHQ Score Initial Depression Screen Score: 0 Negative unless stated in HPI. Physical Exam Vitals & Measurements T: 36.8 ?C(Temporal Artery) HR: 77(Peripheral) RR: 18 BP: 120/74 SpO2: 96% HT: 66 in HT: 167 cm WT: 145.6 kg WT: 320.32 lb BMI: 52.21 General: Morbidly Obese female, well hydrated, appears mildly uncomfortable, in no acute distress. Lungs: Normal respiratory effort and clear to auscultation Cardio: Regular rate and rhythm, normal S1 and S2, no murmur, no rub Neurologic: Grossly normal Lymph Nodes: No cervical adenopathy, nodes normal Mental Status: Alert and oriented x3. Normal mood and affect Musculoskeletal: Significant tenderness over the right SI joint and hip and lateral aspect of the right knee. Difficulty with ambulation due to significant discomfort. Assessment/Plan 1. Lumbar back pain with radiculopathy affecting right lower extremity (M54.16: Radiculopathy, lumbar region) Prescription for Celebrex 200 mg twice daily sent to local pharmacy. Advised the patient to take twice daily and to not use any other anti-inflammatories including Aleve or ibuprofen. In conjunction, advised the patient can use Tylenol for breakthrough pain. Continue with ice and heat alternation as well as stretching. Advised patient referral to pain management will be given. Refill for tizanidine also sent to local pharmacy, reminded patient this medication can be sedating and to use with caution when driving. The patient was also provided with a handout on how to properly walk with a cane for assistance. 2. BMI 50.0-59.9, adult (Z68.43: Body mass index [BMI] 50.0-59.9, adult) The standard range for ages 18 and older is >=18.5 and < 25 kg/m2. Your BMI today was above this range, this falls in the overweight to obese category and there are medical benefits to weight loss. We can offer counselling, referral, and/or medical support in addressing this problem. Your BMI and weight management will be followed at subsequent visits. 3. Class 3 severe obesity due to excess calories with serious comorbidity in adult (E66.01: Morbid (severe) obesity due to excess calories) See above problem #3. Patient verbalized understanding and is agreeable to plan and course of treatment. This documentation was completed by voice-activated device and software. Inaccuracies compared to the original dictation of this provider are possible although this document has been overread and corrected. Portions of this record may h (more content not included)... [facility] Comment on above: Result Comment: Elec tronically Signed By: Ansley Carrero PA-C\.br\Date and Time Signed: 05/09/23 22:11 EST\.br\Electronically Co-Signed By: Grisel Knox.br\Date and Time Co-Signed: 05/09/23 11:41 EST Patient Educationon 05-09-20 23 Patient Education Orthopedics Back Exercises The following exercises strengthen the muscles that help to support the trunk (torso) and back. They also help to keep the lower back flexible. Doing these exercises can help to prevent or lessen existing low back pain. ? If you have back pain or discomfort, try doing these exercises 2?3 times each day or as told by your health care provider. ? As your pain improves, do them once each day, but increase the number of times that you repeat the steps for each exercise (do more repetitions). ? To prevent the recurrence of back pain, continue to do these exercises once each day or as told by your health care provider. Do exercises exactly as told by your health care provider and adjust them as directed. It is normal to feel mild stretching, pulling, tightness, or discomfort as you do these exercises, but you should stop right away if you feel sudden pain or your pain gets worse. Exercises Single knee to chest Repeat these steps 3?5 times for each le. Lie on your back on a firm bed or the floor with your legs extended. 2. Bring one knee to your chest. Your other leg should stay extended and in contact with the floor. 3. Hold your knee in place by grabbing your knee or thigh with both hands and hold. 4. Pull on your knee until you feel a gentle stretch in your lower back or buttocks. 5. Hold the stretch for 10?30 seconds. 6. Slowly release and straighten your leg. Pelvic tilt Repeat these steps 5?10 times: 1. Lie on your back on a firm bed or the floor with your legs extended. 2. Bend your knees so they are pointing toward the ceiling and your feet are flat on the floor. 3. Tighten your lower abdominal muscles to press your lower back against the floor. This motion will tilt your pelvis so your tailbone points up toward the ceiling instead of pointing to your feet or the floor. 4. With gentle tension and even breathing, hold this position for 5?10 seconds. Cat-cow Repeat these steps until your lower back becomes more flexible: 1. Get into a [id number] position on a firm bed or the floor. Keep your hands under your shoulders, and keep your knees under your hips. You may place padding under your knees for comfort. 2. Let your head hang down toward your chest. Contract your abdominal muscles and point your tailbone toward the floor so your lower back becomes rounded like the back of a cat. 3. Hold this position for 5 seconds. 4. Slowly lift your head, let your abdominal muscles relax, and point your tailbone up toward the ceiling so your back forms a sagging arch like the back of a cow. 5. Hold this position for 5 seconds. Press-ups Repeat these steps 5?10 times: 1. Lie on your abdomen (face-down) on a firm bed or the floor. 2. Place your palms near your head, about shoulder-width apart. 3. Keeping your back as relaxed as possible and keeping your hips on the floor, slowly straighten your arms to raise the top half of your body and lift your shoulders. Do not use your back muscles to raise your upper torso. You may adjust the placement of your hands to make yourself more comfortable. 4. Hold this position for 5 seconds while you keep your back relaxed. 5. Slowly return to lying flat on the floor. Bridges Repeat these steps 10 times: 1. Lie on your back on a firm bed or the floor. 2. Bend your knees so they are pointing toward the ceiling and your feet are flat on the floor. Your arms should be flat at your sides, next to your body. 3. Tighten your buttocks muscles and lift your buttocks off the floor until your waist is at almost the same height as your knees. You should feel the muscles working in your buttocks and the back of your thighs. If you do not feel these muscles, slide your feet 1?2 inches (2.5?5 cm) farther away from your buttocks. 4. Hold this position for 3?5 seconds. 5. Slowly lower your hips to the starting position, and allow your buttocks muscles to relax completely. If this exercise is too easy, try doing it with your arms crossed over your chest. Abdominal crunches Repeat these steps 5?10 times: 1. Lie on your back on a firm bed or the floor with your legs extended. 2. Bend your knees so they are pointing toward the ceiling and your feet are flat on the floor. 3. Cross your arms over your chest. 4. Tip your chin slightly toward your chest without bending your neck. 5. Tighten your abdominal muscles and slowly raise your torso high enough to lift your shoulder blades a tiny bit off the floor. Avoid raising your torso higher than that because it can put too much stress on your lower back and does not help to strengthen your abdominal muscles. 6. Slowly return to your starting position. Back lifts Re (more content not included)... [facility] ED Note-Physicianon 05-02-20 ED Note-Physician [id number]#1. 00TIFF [facility] Family Medicine Office/Clini c Noteon 04-27-2023 Family Medicine Office/Clinic Note Chief Complaint Here for groin and outside of right leg from hip to knee pulling in her groin area. Going on for about 2 weeks. Using Aleve, ibuprofen and icy hot heating pad. Nothing helping permanently just temporary reflief. History of Present Illness 62-year-old female presenting today for sciatica pain to the right leg. This has been going on for 2 weeks now, she has been alternating between Motrin and Aleve. She has also been using heating pad as well as ice, but finds that heating pad to be more beneficial. She has not tried any stretches or exercises at home. Does have numbness and tingling sensation going from the right hip area to the groin down to the thigh to the knee. Does states she has had injections many years ago for the pain. Has never tried physical therapy. Besides the heat, nothing else seems to be relieving the pain. Denies any bladder/bowel incontinence. Becoming more difficult to walk. Review of Systems PHQ Score Initial Depression Screen Score: 0 Negative as stated in the HPI. Physical Exam Vitals & Measurements T: 37 ?C(Temporal Artery) HR: 78(Peripheral) RR: 18 BP: 128/70 SpO2: 98% HT: 66 in HT: 167 cm WT: 141.8 kg WT: 311.96 lb BMI: 50.84 Constitutional: Well-groomed, well-nourished, no signs of acute distress. HEENT: Head normocephalic, sclera is clear. Cardiothoracic: Heart rate and rhythm is regular strong, normal S1 and S2. No murmurs, rubs, or bruits auscultated. No peripheral edema, peripheral pulses +2 Respiratory: Lung sounds are clear throughout, respirations regular nonlabored. Abdomen/GI: Abdomen soft nondistended. Musculoskeletal: Gait is steady with a limp, pain to the right leg with maneuver Integument: No rashes or lesions noted to the exposed skin. Psychiatric: Alert and oriented x 3, pleasant, no mood changes. Assessment/Plan 1. Sciatica (M54.30: Sciatica, unspecified side) Has had issues with sciatica pain years ago when she had injection. At this time pain is not getting any better with the use of NSAIDs, ice, and heat. We will go ahead and start her on some oral steroids as well as muscle relaxer. Pamphlet was given on sciatica exercises. Did discuss if no improvement she may need to follow-up with an injection. May need a referral to Ortho for that. We also discussed physical therapy she would like to try these exercises at home first and then will let the office know if symptoms worsen. 2. Type 2 diabetes mellitus with morbid obesity (E11.69: Type 2 diabetes mellitus with other specified complication) The importance of the following were all reviewed with the patient: -Take medications as prescribed. -Exercise and diet as discussed. -Monitoring blood sugar and HgBA1c regularly. -Monitoring urine microalbumin regularly to check for kidney damage. -Annual eye exams to prevent blindness. -Proper foot care and regularly checking feet to prevent sores and possibly loss of limbs. Did discuss that the prednisone side effect could cause the blood sugars to go up even as high as 400. Encouraged her to monitor closely if the blood sugars do not start coming back down after the use of steroids to let the office know. 3. Class 3 severe obesity due to excess calories with serious comorbidity in adult, (E66.01: Morbid (severe) obesity due to excess calories)Morbid (severe) obesity due to excess calories Calorie restriction along with routine aerobic exercises discussed in order to avoid hypertension, osteoarthritis, metabolic syndrome and/or worsening of chronic underlying disease states. Encouraged to limit sugary drinks, foods high in sodium, as well as alcohol. 4. BMI 45.0-49.9, adult (Z68.42: Body mass index [BMI] 45.0-49.9, adult) See #3. This note was created by the assist of a speech-recognition program although the intention is to generate a document that actually reflects the content of the visit, no guarantees can be provided that every mistake has been identified and corrected by editing. Follow-up With When Contact Information Yocasta SMITH, Myron ESPINO Only if needed [address] [place] [phone] Additional Instructions: Patient Education Sciatica Back Exercises Problem List/Past Medical History Ongoing Alcohol problem drinking Benign hypertension Bilateral leg edema BMI 45.0-49.9, adult Breast cancer screening by mammogram Chronic insomnia Cigarette smoker Class 3 severe obesity due to excess calories with serious comorbidity in adult Colon cancer screening Elevated liver transaminase level Encounter for medication management Fatty liver GA (granuloma annulare) GERD (gastroesophageal reflux disease) Heart failure with preserved ejection fraction Hypokalemia Left hand weakness Low vitamin D level Mixed hyperlipidemia Moderate persistent asthma Neurogenic claudication Obstructive sleep apnea Restless leg syndrome Sciatica Screen for colon cancer Seborrheic keratoses Severe major depression Skin (more content not included)... [facility] Comment on above: Result Comment: Elec tronically Signed By: Yocasta SMITH, Myron MUÑOZ CNP\.br\Date and Time Signed: 04/27/23 13:35 EDT Ambulatory Visit Summaryon 1 Ambulatory Visit Summary CARMEN BLEDSOE :1960 Visit Date:04/26/2023 Ambulatory Visit Instructions Your Diagnosis Sciatica Type 2 diabetes mellitus with morbid obesity Class 3 severe obesity due to excess calories with serious comorbidity in adult, Morbid (severe) obesity due to excess calories BMI 45.0-49.9, adult Your Care Team Attending Physician - SRINIVAS Pereyra Tammy L. Primary Care Physician - SRINIVAS Pereyra Tammy L. This Is Your Medications List predniSONE (predniSONE 20 mg Tab) tizanidine (tiZANidine 4 mg Tab) Contact prescribing physician if questions or concerns Misc Prescription (Alcohol wipes) Misc Prescription (Glucometer) Misc Prescription (Lancets) Misc Prescription (Nebulizer Machine) Misc Prescription (Nebulizer Tubing and Mouthpiece Kit) Misc Prescription (Test Strips) albuterol (Ventolin HFA 90 mcg/inh Aerosol-Adpt) aripiprazole (Abilify 2 mg Tab) cholecalciferol (Vitamin D3 5000 intl units oral capsule) dulaglutide (Trulicity Pen 0.75 mg/0.5 mL subcutaneous solution) empagliflozin (Jardiance 10 mg oral tablet) fluoxetine (FLUoxetine 20 mg Cap) fluticasone-salmetero l (Advair Diskus 100 mcg-50 mcg inhalation powder) furosemide (furosemide 40 mg Tab) glipiZIDE (glipiZIDE 2.5 mg ER Tab) montelukast (Singulair 10 mg Tab) pantoprazole (Pantoprazole [address] Tab) potassium chloride (potassium chloride 20 mEq ER Tab) rosuvastatin (Crestor 40 mg Tab) sacubitril-valsartan (Entresto 24 mg-26 mg oral tablet) tiotropium (Spiriva Respimat 1.25 mcg/inh inhalation aerosol) varenicline (varenicline 0.5 mg oral tablet) varenicline (varenicline 1 mg oral tablet) Procedures Performed Colonoscopy (03/17/2020), Eye/lens implant bilat, Knee replacement, L foot bunion/reconstruction . Discharge Vitals Temperature (Temporal Artery) 37 ?C Heart Rate (Peripheral) 78 Respiratory Rate 18 Blood Pressure 128/70 Height 167 cm Height 66 in Weight 141.8 kg Weight 311.96 lb BMI 50.84 What to do next Scheduled Follow-Up Appointments Tuesday 2:00 PM EST With: Yocasta SMITH, CREDIT COLLECTIONS CLERK-IRVING, Myron Hamilton Where: [facility] [place] [facility] Insurance Correspondenceon 1 Insurance Correspondence [id number]# 1.00TIFF [facility] Patient Educationon 04-25-20 Patient Education Orthopedics Sciatica Sciatica is pain, numbness, weakness, or tingling along the path of the sciatic nerve. The sciatic nerve starts in the lower back and runs down the back of each leg. The nerve controls the muscles in the lower leg and in the back of the knee. It also provides feeling (sensation) to the back of the thigh, the lower leg, and the sole of the foot. Sciatica is a symptom of another medical condition that pinches or puts pressure on the sciatic nerve. Sciatica most often only affects one side of the body. Sciatica usually goes away on its own or with treatment. In some cases, sciatica may come back (recur). What are the causes? This condition is caused by pressure on the sciatic nerve or pinching of the nerve. This may be the result of: ? A disk in between the bones of the spine bulging out too far (herniated disk). ? Age-related changes in the spinal disks. ? A pain disorder that affects a muscle in the buttock. ? Extra bone growth near the sciatic nerve. ? A break (fracture) of the pelvis. ? . ? Tumor. This is rare. What increases the risk? The following factors may make you more likely to develop this condition: ? Playing sports that place pressure or stress on the spine. ? Having poor strength and flexibility. ? A history of back injury or surgery. ? Sitting for long periods of time. ? Doing activities that involve repetitive bending or lifting. ? Obesity. What are the signs or symptoms? Symptoms can vary from mild to very severe, and they may include: ? Any of these problems in the lower back, leg, hip, or buttock: ? Mild tingling, numbness, or dull aches. ? Burning sensations. ? Sharp pains. ? Numbness in the back of the calf or the sole of the foot. ? Leg weakness. ? Severe back pain that makes movement difficult. Symptoms may get worse when you cough, sneeze, or laugh, or when you sit or stand for long periods of time. How is this diagnosed? This condition may be diagnosed based on: ? Your symptoms and medical history. ? A physical exam. ? Blood tests. ? Imaging tests, such as: ? X-rays. ? MRI. ? CT scan. How is this treated? In many cases, this condition improves on its own without treatment. However, treatment may include: ? Reducing or modifying physical activity. ? Exercising and stretching. ? Icing and applying heat to the affected area. ? Medicines that help to: ? Relieve pain and swelling. ? Relax your muscles. ? Injections of medicines that help to relieve pain, irritation, and inflammation around the sciatic nerve (steroids). ? Surgery. Follow these instructions at home: Medicines ? Take [id number] and prescription medicines only as told by your health care provider. ? Ask your health care provider if the medicine prescribed to you: ? Requires you to avoid driving or using heavy machinery. ? Can cause constipation. You may need to take these actions to prevent or treat constipation: ? Drink enough fluid to keep your urine pale yellow. ? Take [id number] or prescription medicines. ? Eat foods that are high in fiber, such as beans, whole grains, and fresh fruits and vegetables. ? Limit foods that are high in fat and processed sugars, such as fried or sweet foods. Managing pain ? If directed, put ice on the affected area. ? Put ice in a plastic bag. ? Place a towel between your skin and the bag. ? Leave the ice on for 20 minutes, 2?3 times a day. ? If directed, apply heat to the affected area. Use the heat source that your health care provider recommends, such as a moist heat pack or a heating pad. ? Place a towel between your skin and the heat source. ? Leave the heat on for 20?30 minutes. ? Remove the heat if your skin turns bright red. This is especially important if you are unable to feel pain, heat, or cold. You may have a greater risk of getting burned. Activity ? Return to your normal activities as told by your health care provider. Ask your health care provider what activities are safe for you. ? Avoid activities that make your symptoms worse. ? Take brief periods of rest throughout the day. ? When you rest for longer periods, mix in some mild activity or stretching between periods of rest. This will help to prevent stiffness and pain. ? Avoid sitting for long periods of time without moving. Get up and move around at least one time each hour. ? Exercise and stretch regularly, as told by your health care provider. ? Do not lift anything that is heavier than 10 lb (4.5 kg) while you have symptoms of sciatica. When you do not have symptoms, you should still avoid heavy lifting, especially repetitive heavy lifting. ? When you lift objects, always use proper lifting technique, which includes: ? Bending your knees. ? Keeping the load close to your body. (more content not included)... [facility] Physician Orderon 03-25-2023 Physician Order [id number]:[address] [facility] Ambulatory Visit Summaryon 0 03-18-2023 Ambulatory Visit Summary CARMEN BLEDSOE :1960 Visit Date:03/18/2023 Ambulatory Visit Instructions Your Diagnosis Chronic insomnia Benign hypertension Type 2 diabetes mellitus with morbid obesity Obstructive sleep apnea Cigarette smoker Class 3 severe obesity due to excess calories with serious comorbidity in adult, Morbid (severe) obesity due to excess calories BMI 50.0-59.9, adult Immunization due Your Care Team Attending Physician - Yocasta SMITH, DARLEEN-Myron VILLATORO Primary Care Physician - Yocasta SMITH, DARLEEN-Myron VILLATORO This Is Your Medications List dulaglutide (Trulicity Pen 0.75 mg/0.5 mL subcutaneous solution) Contact prescribing physician if questions or concerns Misc Prescription (Alcohol wipes) Misc Prescription (Glucometer) Misc Prescription (Lancets) Misc Prescription (Nebulizer Machine) Misc Prescription (Nebulizer Tubing and Mouthpiece Kit) Misc Prescription (Test Strips) albuterol (Ventolin HFA 90 mcg/inh Aerosol-Adpt) aripiprazole (Abilify 2 mg Tab) cholecalciferol (Vitamin D3 5000 intl units oral capsule) empagliflozin (Jardiance 10 mg oral tablet) fluoxetine (FLUoxetine 20 mg Cap) fluticasone-salmetero l (Advair Diskus 100 mcg-50 mcg inhalation powder) furosemide (furosemide 40 mg Tab) glipiZIDE (glipiZIDE 2.5 mg ER Tab) montelukast (Singulair 10 mg Tab) pantoprazole (Pantoprazole [address] Tab) potassium chloride (potassium chloride 20 mEq ER Tab) rosuvastatin (Crestor 40 mg Tab) sacubitril-valsartan (Entresto 24 mg-26 mg oral tablet) tiotropium (Spiriva Respimat 1.25 mcg/inh inhalation aerosol) varenicline (varenicline 0.5 mg oral tablet) varenicline (varenicline 1 mg oral tablet) Procedures Performed Colonoscopy (03/17/2020), Eye/lens implant bilat, Knee replacement, L foot bunion/reconstruction . Discharge Vitals Temperature (Temporal Artery) 36.5 ?C Heart Rate (Peripheral) 78 Respiratory Rate 16 Blood Pressure 122/64 Height 167 cm Height 66 in Weight 136.6 kg Weight 300.52 lb BMI 48.98 What to do next Scheduled Follow-Up Appointments Tuesday 10:00 AM EDT With: Adam SAMPSON, Alirio Hooper Where: [facility] [place] Tuesday 2:00 PM EST With: Yocasta SMITH, Myron ESPINO Where: [facility] Family [facility] Ambulatory Visit Summary CARMEN BLEDSOE :1960 Visit Date:03/18/2023 Ambulatory Visit Instructions Your Diagnosis Chronic insomnia Benign hypertension Type 2 diabetes mellitus with morbid obesity Obstructive sleep apnea Cigarette smoker Class 3 severe obesity due to excess calories with serious comorbidity in adult, Morbid (severe) obesity due to excess calories BMI 50.0-59.9, adult Immunization due Your Care Team Attending Physician - SRINIVAS Pereyra Tammy L. Primary Care Physician - SRINIVAS Pereyra Tammy L. This Is Your Medications List dulaglutide (Trulicity Pen 0.75 mg/0.5 mL subcutaneous solution) Contact prescribing physician if questions or concerns Misc Prescription (Alcohol wipes) Misc Prescription (Glucometer) Misc Prescription (Lancets) Misc Prescription (Nebulizer Machine) Misc Prescription (Nebulizer Tubing and Mouthpiece Kit) Misc Prescription (Test Strips) albuterol (Ventolin HFA 90 mcg/inh Aerosol-Adpt) aripiprazole (Abilify 2 mg Tab) cholecalciferol (Vitamin D3 5000 intl units oral capsule) empagliflozin (Jardiance 10 mg oral tablet) fluoxetine (FLUoxetine 20 mg Cap) fluticasone-salmetero l (Advair Diskus 100 mcg-50 mcg inhalation powder) furosemide (furosemide 40 mg Tab) glipiZIDE (glipiZIDE 2.5 mg ER Tab) montelukast (Singulair 10 mg Tab) pantoprazole (Pantoprazole [address] Tab) potassium chloride (potassium chloride 20 mEq ER Tab) rosuvastatin (Crestor 40 mg Tab) sacubitril-valsartan (Entresto 24 mg-26 mg oral tablet) tiotropium (Spiriva Respimat 1.25 mcg/inh inhalation aerosol) varenicline (varenicline 0.5 mg oral tablet) varenicline (varenicline 1 mg oral tablet) Procedures Performed Colonoscopy (03/17/2020), Eye/lens implant bilat, Knee replacement, L foot bunion/reconstruction . Discharge Vitals Temperature (Temporal Artery) 36.5 ?C Heart Rate (Peripheral) 78 Respiratory Rate 16 Blood Pressure 122/64 Height 167 cm Height 66 in Weight 136.6 kg Weight 300.52 lb BMI 48.98 What to do next Scheduled Follow-Up Appointments Tuesday 10:00 AM EDT With: Adam SAMPSON, Alirio Hooper Where: [facility] [place] Tuesday 2:00 PM EST With: Yocasta SMITH, CREDIT COLLECTIONS CLERK-UPPER MARKER, Myron Hamilton Where: [facility] Consent for Flu Vaccineon Consent for Flu Vaccine [id number]:127 [facility] Family Medicine Office/Clini c Noteon 03-18-2023 Family Medicine Office/Clinic Note Chief Complaint Here to discuss insomnia, has been having issues with it for couple months, Tried tylenol pm, trazadone 500mg two nothing helping. Is using her cpap regularly History of Present Illness a 62-year-old female who presents here today for increased insomnia. The patient's sleep quality is poor. She is tired all day, and will doze off, but nothing happens. She averages between 3 to 4 hours of sleep per night and sometimes not even 3 hours. She utilizes a CPAP machine, which keeps track of her sleep. It has been approximately 5 to 10 years since her last sleep study. She has tried trazodone 50 mg, Benadryl, and Tylenol PM in the past, which have not provided her with any relief. She has never tried melatonin. Did express that it has been quite a while since her last sleep study. She feels that this has been greater than 10 years. Her CPAP machine she expresses is just as old, she is even unsure of where she obtained the machine. She has lost 47 pounds. She has been eating a plant-based diet. She is doing well on Trulicity and she believes that it is helping her with her weight. Her blood glucose levels at home have been consistently satisfactory. . She needs a refill on her Trulicity. Review of Systems PHQ Score Initial Depression Screen Score: 0 Negative as stated in the HPI. Physical Exam Vitals & Measurements T: 36.5 ?C(Temporal Artery) HR: 78(Peripheral) RR: 16 BP: 122/64 SpO2: 94% HT: 66 in HT: 167 cm WT: 136.6 kg WT: 300.52 lb BMI: 48.98 Constitutional: Well-groomed, well-nourished, no signs of acute distress. HEENT: Head normocephalic, sclera is clear. Neck circumference is 43 cm. Cardiothoracic: Heart rate and rhythm is regular strong, normal S1 and S2. No murmurs, rubs, or bruits auscultated. No peripheral edema, peripheral pulses +2 Respiratory: Lung sounds are clear throughout, respirations regular nonlabored. Abdomen/GI: Abdomen soft nondistended. Musculoskeletal: Gait is steady, full range of motion. Integument: No rashes or lesions noted to the exposed skin. Psychiatric: Alert and oriented x 3, pleasant, no mood changes. Assessment/Plan 1. Chronic insomnia (F51.04: Psychophysiologic insomnia) She has expressed concerns for increased insomnia, only sleeping 3 to 4 hours at a time and finding herself napping at least an hour during the day. Overall she is trying to lose weight she has already lost 47 pounds and is monitoring her nutrition status much better. Concern for prescribing sleep aid due to her history of sleep apnea as well as a sleep study greater than 10 years. Did discuss obtaining a new sleep study to reevaluate not only her sleep apnea but her machine is well, maybe it needs to be adjusted. Patient expressed that she never thought of that and that would be a good idea. She is even unsure when or how old her machine is. We will go ahead and initiate a sleep study to reevaluate as well as have her try melatonin at night. We will follow-up after her sleep study. Ordered: influenza virus vaccine, inactivated, 0.5 mL, Injection, IntraMuscular, Once, Stop date 03/18/23 13:00:00 EDT, Routine, Start date 03/18/23 13:00:00 EDT Sleep Study with therapy - CPAP 2. Benign hypertension (I10: Essential (primary) hypertension) The importance of the following were all reviewed with the patient: -Take medications as prescribed. There are simple Lifestyle Modifications that you can do to reduce your blood pressure. -Weight Reduction -Follow the DASH eating plan. -Reduce Sodium (Salt) Intake to 2000mg per day. -Use Moderation when consuming alcohol. - To improve your health we recommend increasing your level of moderate exercise to at least 2.5 hrs per week. Since losing weight she has noticed that her blood pressure has been stabilizing and overall controlled. We will continue monitoring and continue her weight loss. Ordered: influenza virus vaccine, inactivated, 0.5 mL, Injection, IntraMuscular, Once, Stop date 03/18/23 13:00:00 EDT, Routine, Start date 03/18/23 13:00:00 EDT 3. Type 2 diabetes mellitus with morbid obesity (E11.69: Type 2 diabetes mellitus with other specified complication) The importance of the following were all reviewed with the patient: -Take medications as prescribed. -Exercise and diet as discussed. -Monitoring blood sugar and HgBA1c regularly. -Monitoring urine microalbumin regularly to check for kidney damage. -Annual eye exams to prevent blindness. -Proper foot care and regularly checking feet to prevent sores and possibly loss of limbs. Since on Trulicity she states that her blood sugar is well managed and controlled at home. She has lost 47 pounds and is continuing monitoring her nutrition status. She has a chronic care follow-up appointment with me in May we will reevaluate her A1c then. Ordered: dulaglutide, 0.75 mg, SubCutaneous, qWeek, # 4 EA, Refills(s) 3, Pharmacy: [facility][id number], 167, cm, 03/18/23 11:56:00 EDT, Height/Length Dosing, 136.6, kg (more content not included)... Normal [facility] Comment on above: Result Comment: Elec tronically Signed By: Yocasta SMITH, CREDIT COLLECTIONS CLERK- Myron VILLATORO\.br\Date and Time Signed: 03/18/23 16:40 EDT\.br\Electronically Co-Signed By: Bevier, Amanda Navarro P\.br\Date and Time Co-Signed: 03/18/23 15:22 EDT\.br\Electronically Co-Signed By: Amanda Lopez\.br\Date and Time Co-Signed: 03/18/23 15:31 EDT Patient Educationon 03-17-20 Patient Education Endocrinology Type 2 Diabetes Mellitus, Self-Care, Adult Caring for yourself after you have been diagnosed with type 2 diabetes (type 2 diabetes mellitus) means keeping your blood sugar (glucose) under control with a balance of: ? Nutrition. ? Exercise. ? Lifestyle changes. ? Medicines or insulin, if needed. ? Support from your team of health care providers and others. What are the risks? Having type 2 diabetes can put you at risk for other long-term (chronic) conditions, such as heart disease and kidney disease. Your health care provider may prescribe medicines to help prevent complications from diabetes. How to monitor your blood glucose ? Check your blood glucose every day or as often as told by your health care provider. ? Have your A1C (hemoglobin A1C) level checked two or more times a year, or as often as told by your health care provider. ? Your health care provider will set personalized treatment goals for you. Generally, the goal of treatment is to maintain the following blood glucose levels: ? Before meals: 80?130 mg/dL (4.4?7.2 mmol/L). ? After meals: below 180 mg/dL (10 mmol/L). ? A1C level: less than 7%. How to manage hyperglycemia and hypoglycemia Hyperglycemia symptoms Hyperglycemia, also called high blood glucose, occurs when blood glucose is too high. Make sure you know the early signs of hyperglycemia, such as: ? Increased thirst. ? Hunger. ? Feeling very tired. ? Needing to urinate more often than usual. ? Blurry vision. Hypoglycemia symptoms Hypoglycemia, also called low blood glucose, occurs with a blood glucose level at or below 70 mg/dL (3.9 mmol/L). Diabetes medicines lower your blood glucose and can cause hypoglycemia. The risk for hypoglycemia increases during or after exercise, during sleep, during illness, and when skipping meals or not eating for a long time (fasting). It is important to know the symptoms of hypoglycemia and treat it right away. Always have a 15-gram rapid-acting carbohydrate snack with you to treat low blood glucose. Family members and close friends should also know the symptoms and understand how to treat hypoglycemia, in case you are not able to treat yourself. Symptoms may include: ? Hunger. ? Anxiety. ? Sweating and feeling clammy. ? Dizziness or feeling light-headed. ? Sleepiness. ? Increased heart rate. ? Irritability. ? Tingling or numbness around the mouth, lips, or tongue. ? Restless sleep. Severe hypoglycemia is when your blood glucose level is at or below 54 mg/dL (3 mmol/L). Severe hypoglycemia is an emergency. Do not wait to see if the symptoms will go away. Get medical help right away. Call your local emergency services (911 in the [place] Do not drive yourself to the hospital. If you have severe hypoglycemia and you cannot eat or drink, you may need glucagon. A family member or close friend should learn how to check your blood glucose and how to give you glucagon. Ask your health care provider if you need to have an emergency glucagon kit available. Follow these instructions at home: Medicines ? Take prescribed insulin or diabetes medicines as told by your health care provider. ? Do not run out of insulin or other diabetes medicines. Plan ahead so you always have these available. ? If you use insulin, adjust your dosage based on your physical activity and what foods you eat. Your health care provider will tell you how to adjust your dosage. ? Take banl-ypc-jyneblk and prescription medicines only as told by your health care provider. Eating and drinking What you eat and drink affects your blood glucose and your insulin dosage. Making good choices helps to control your diabetes and prevent other health problems. A healthy meal plan includes eating lean proteins, complex carbohydrates, fresh fruits and vegetables, low-fat dairy products, and healthy fats. Make an appointment to see a registered dietitian to help you create an eating plan that is right for you. Make sure that you: ? Follow instructions from your health care provider about eating or drinking restrictions. ? Drink enough fluid to keep your urine pale yellow. ? Keep a record of the carbohydrates that you eat. Do this by reading food labels and learning the standard serving sizes of foods. ? Follow your sick-day plan whenever you cannot eat or drink as usual. Make this plan in advance with your health care provider. Activity ? Stay active. Exercise regularly, as told by your health care provider. This may include: ? Stretching and doing strength exercises, such as yoga or weight lifting, two or more times a week. ? Doing 150 minutes or more of moderate-intensity or vigorous-intensity exercise each week. This could be brisk walking, biking, or water aerobics. ? Spread out your activity over 3 or more days of the week. ? Do not go more than 2 days in a row without doing some kind of physical activity. (more content not included)... Normal [facility] VL DUP LOWER EXTREMITY VENOU S BILATERALon 12-01-2022 Negative. [facility] EXAM: VL DUP LOWER EXTREMITY VENOUS BILATERAL REFLUX STUDY. HISTORY: Bilateral leg swelling and pain, 3 months. Fatigue, unspecified type. COMPARISON: None. TECHNIQUE: Compression and augmentation with velocity measurements of the superficial venous system both lower extremities. Evaluation of the deep venous system bilaterally for thrombus. FINDINGS: No reflux. No thrombus from the groin through the calf within the superficial or deep system bilaterally. [facility] Casa Minor Jr., MD - 12/01/2022 EXAM: VL DUP LOWER EXTREMITY VENOUS BILATERAL REFLUX STUDY. HISTORY: Bilateral leg swelling and pain, 3 months. Fatigue, unspecified type. COMPARISON: None. TECHNIQUE: Compression and augmentation with velocity measurements of the superficial venous system both lower extremities. Evaluation of the deep venous system bilaterally for thrombus. FINDINGS: No reflux. No thrombus from the groin through the calf within the superficial or deep system bilaterally. IMPRESSION: Negative. [employer] Phone: Radiology Study observation (narrative) [employer] Phone: VL DUP LOWER EXTREMITY VENOU S BILATERALOrdered By: Casa Minor on 12-01-2022 [employer] Phone: XR CERVICAL SPINE (4-5 VIEWS )on 10-19-2022 FINDINGS/IMPRESSION: 1. Moderate disc space narrowing and anterior osteophyte formation from C4-C5 inferiorly. 2. Intervertebral foramina show minimal narrowing bilaterally due to facet and uncovertebral osteophytes. 3. No fracture. [facility] EXAM: XR CERVICAL SPINE (4-5 VIEWS). HISTORY: Left hand weakness. COMPARISON: None. [facility] Casa Minor Jr., MD - 10/19/2022 EXAM: XR CERVICAL SPINE (4-5 VIEWS). HISTORY: Left hand weakness. COMPARISON: None. IMPRESSION: FINDINGS/IMPRESSION: 1. Moderate disc space narrowing and anterior osteophyte formation from C4-C5 inferiorly. 2. Intervertebral foramina show minimal narrowing bilaterally due to facet and uncovertebral osteophytes. 3. No fracture. [employer] Phone: Radiology Study observation (narrative) [employer] Phone: XR CERVICAL SPINE (4-5 VIEWS )Ordered By: Casa Minor on 10-19-2022 [employer] Phone: XR LUMBAR SPINE (MIN 4 VIEWS )on 10-19-2022 FINDINGS/IMPRESSION: 1. Moderate to moderately severe diffuse disc space narrowing and osteophyte formation similar to previous. 2. Mild facet degenerative change L4-L5 and L5-S1. 3. No fracture or pars defects. 4. Slight convex right lumbar curve unchanged. [facility] EXAM: XR LUMBAR SPIN E (MIN 4 VIEWS) HISTORY: Weakness of both legs COMPARISON: CT abdomen and pelvis 02/07/2020. [facility] Casa Minor Jr., MD - 10/19/2022 EXAM: XR LUMBAR SPINE (MIN 4 VIEWS) HISTORY: Weakness of both legs COMPARISON: CT abdomen and pelvis 02/07/2020. IMPRESSION: FINDINGS/IMPRESSION: 1. Moderate to moderately severe diffuse disc space narrowing and osteophyte formation similar to previous. 2. Mild facet degenerative change L4-L5 and L5-S1. 3. No fracture or pars defects. 4. Slight convex right lumbar curve unchanged. [employer] Phone: Radiology Study observation (narrative) [employer] Phone: XR LUMBAR SPINE (MIN 4 VIEWS )Ordered By: Casa Minor on 10-19-2022 [employer] Phone: Glucose, Whole Bloodon 10-15 Glucose [Mass/Vol] 127 mg/dL High 65 - 99 mg/dL [facility] Interpretation and review of laboratory results Abnormal [facility] POCT glucoseOrdered By: Dilan Prescott on 10-15-2022 Interpretation and review of laboratory results Normal [facility] QC OK? y [facility] Brain Natriuretic Peptideon 10-14-2022 Natriuretic peptide B (Bld) [Mass/Vol] 42 pg/mL NINF - 300 pg/mL [facility] Comment on above: An age-independent cutoff point of 300 pg/ml has a 98% negative predictive value excluding acute heart failure. CBC with Auto Differentialon 10-14-2022 Absolute Eos # 0.10 [place] [facility] Absolute Lymph # 1.60 [facility] Absolute [place] # 0.40 [facility] RS [facility] Basophils (Bld) [#/Vol] 0.00 10*3/uL [facility] Basophils/100 WBC (Bld) 1 % 0 - 2 % [facility] Differential Type YES [facility] Eosinophils/100 WBC (Bld) 2 % 0 - 5 % [facility] Hematocrit (Bld) [Volume fraction] 41.4 % 36 - 46 % [facility] Hemoglobin (Bld) [Mass/Vol] 13.5 g/dL 12.0 - 16.0 g/dL [facility] Interpretation and review of laboratory results Abnormal [facility] Lymphocytes/100 WBC (Bld) 24 % 15 - 40 % [facility] MCH (RBC) [Entitic mass] 30.8 pg 26 - 34 pg [facility] MCHC (RBC) [Mass/Vol] 32.7 g/dL 31 - 37 g/dL [facility] MCV (RBC) [Entitic vol] 94.3 fL 80 - 100 fL [facility] Monocytes/100 WBC (Bld) 5 % 4 - 8 % [facility] Platelet distribution width (Bld) [Ratio] 16.4 % High 12.1 - 15.2 % [facility] Platelets (Bld) [#/Vol] 264 10*3/uL [facility] RBC (Bld) [#/Vol] 4.39 10*6/uL 4.0 - 5.2 m/uL B [facility] Segmented neutrophils/100 WBC (Bld) 68 % 47 - 75 % [facility] Segs Absolute 4.70 [facility] WBC (Bld) [#/Vol] 6.9 10*3/uL [facility] CMPon 10-14-2022 Albumin [Mass/Vol] 4.4 g/dL 3.5 - 5.2 g/dL [facility] ALP [Catalytic activity/Vol] 86 U/L 35 - 104 U/L [facility] ALT [Catalytic activity/Vol] 33 U/L 5 - 33 U/L [facility] Anion gap [Moles/Vol] 14 mmol/L 9 - 17 mmol/L [facility] AST [Catalytic activity/Vol] 29 U/L NINF - 32 U/L [facility] Bilirubin [Mass/Vol] 0.3 mg/dL 0.3 - 1.2 mg/dL [facility] Calcium [Mass/Vol] 8.8 mg/dL 8.6 - 10.4 mg/dL [facility] Chloride [Moles/Vol] 96 mmol/L Low 98 - 107 mmol/L [facility] CO2 [Moles/Vol] 23 mmol/L 20 - 31 mmol/L [facility] Creatinine [Mass/Vol] 0.8 mg/dL 0.50 - 0.90 mg/dL [facility] GFR/1.73 sq M.predicted MDRD (S/P/Bld) [Vol rate/Area] - PINF [facility] Comment on above: These results are not intended for use in patients <18 years of age. eGFR results are calculated without a race factor using the 2020 CKD-EPI equation. Careful clinical correlation is recommended, particularly when comparing to results calculated using previous equations. The CKD-EPI equation is less accurate in patients with extremes of muscle mass, extra-renal metabolism of creatine, excessive creatine ingestion, or following therapy that affects renal tubular secretion. Glucose [Mass/Vol] 108 mg/dL High 70 - 99 mg/dL [facility] Potassium [Moles/Vol] 3.9 mmol/L 3.7 - 5.3 mmol/L [facility] Protein [Mass/Vol] 7.4 g/dL 6.4 - 8.3 g/dL [facility] Sodium [Moles/Vol] 133 mmol/L Low 135 - 144 mmol/L [facility] Urea nitrogen [Mass/Vol] 11 mg/dL 6 - 20 mg/dL [facility] Urea nitrogen/Creatinine (Bld) [Mass ratio] 14 9 - 20 [facility] Ethanolon 10-14-2022 Ethanol [Mass/Vol] 230 mg/dL High NINF - 10 mg/dL [facility] Ethanol percent 0.23 % [facility] No Panel Informationon 10-14 [facility] Interpretation and review of laboratory results Abnormal [facility] Troponinon 10-14-2022 Troponin I.cardiac DL <= 0.01 ng/mL [Mass/Vol] 6 ng/L 0 - 14 ng/L [facility] Comment on above: High Sensitivity Tro ponin values cannot be compared with other Troponin methodologies. XR CHEST PORTABLEon 10-15-19 23 1. Mild cardiomegaly. 2. Mild bibasilar atelectasis. [facility] EXAM: XR CHEST PORTABLE HISTORY: Reason for exam:->sob COMPARISON: Portable chest from 06/18/2018. TECHNIQUE: Portable chest was done at 9:46 PM. FINDINGS: Trachea, mediastinum and diaphragm are unremarkable. Heart size is mildly prominent. Mild bibasilar atelectasis is noted. No effusion or nodule or thorax is noted. Bony elements are intact. [facility] [place], - 10/14/2022 EXAM: XR CHEST PORTABLE HISTORY: Reason for exam:->sob COMPARISON: Portable chest from 06/18/2018. TECHNIQUE: Portable chest was done at 9:46 PM. FINDINGS: Trachea, mediastinum and diaphragm are unremarkable. Heart size is mildly prominent. Mild bibasilar atelectasis is noted. No effusion or nodule or thorax is noted. Bony elements are intact. IMPRESSION: 1. Mild cardiomegaly. 2. Mild bibasilar atelectasis. [employer] Work Phone: Radiology Study observation (narrative) [employer] Phone: XR CHEST PORTABLEOrdered By: Monroe Grant on 10-14-2022 [employer] Work Phone: CKon 10-13-2022 CK [Catalytic activity/Vol] 39 U/L 26 - 192 U/L [employer] [facility] Vitamin D 25 Hydroxyon 10-13 25-hydroxyvitamin D3 [Mass/Vol] 19.9 ng/mL Low 29.9 - PINF ng/mL [employer] Comment on above: Reference Range: Vitamin D status Range Deficiency <20 ng/mL Mild Deficiency 20-30 ng/mL Sufficiency 30-100 ng/mL Toxicity >100 ng/mL Interpretation and review of laboratory results Abnormal [employer] [facility] CHEMISTRYOrdered By: SYSTEM SYSTEM on 10-06-2022 Anion gap [Moles/Vol] 11 mmol/L Normal 6 - 16 mEq/L [facility] Calcium [Mass/Vol] 9.2 mg/dL Normal 8.9 - 11.1 mg/dL [facility] Chloride [Moles/Vol] 100 mmol/L Low 101 - 111 mmol/ L [facility] CO2 [Moles/Vol] 28 mmol/L Normal 21 - 31 mmol/L [facility] Creatinine [Mass/Vol] 0.8 mg/dL Normal 0.5 - 1.3 mg/dL [facility] GFR/1.73 sq M.predicted among blacks MDRD (S/P/Bld) [Vol rate/Area] mL/min/1.73 m2 Normal >=59mL/min/1.[address] [facility] Chem S GFR/1.73 sq M.predicted among non-blacks MDRD (S/P/Bld) [Vol rate/Area] mL/min/1.73 m2 Normal >=59mL/min/1.[address] [facility] Chem S Glucose [Mass/Vol] 180 mg/dL Normal 55 - 199 mg/dL [facility] Remisol Magnesium [Mass/Vol] 2.4 mg/dL Normal 1.3 - 2.4 mg/dL [facility] Remisol Potassium [Moles/Vol] 4.2 mmol/L Normal 3.5 - 5.3 mmol/L [facility] Remisol Sodium [Moles/Vol] 135 mmol/L Normal 135 - 145 mmol/L [facility] Remisol Urea nitrogen [Mass/Vol] 12 mg/dL Normal 5 - 21 mg/dL [facility] Remisol Urea nitrogen/Creatinine [Mass ratio] 15 mg/mg Normal 10 - [address] [facility] Remisol CHEMISTRYOrdered By: SYSTEM SYSTEM on 09-29-2022 Magnesium [Mass/Vol] 2.8 mg/dL High 1.3 - 2.4 mg/dL [facility] Glucometer (BldC) [M ass/Vol]Ordered By: José Sanchez on 09-14-2022 Glucose [Mass/Vol] 248 mg/dL [facility] Comment on above: Random Glucose Refer ence Range is dependent on time and content of last meal. Glucose of more than 200 mg/dL in a nonstressed, ambulatory subject supports the diagnosis of Diabetes Mellitus. Glucose Poct Glucometerson 0 09-14-2022 Glucose [Mass/Vol] 248 mg/dL Normal [facility] Comment on above: Result Comment: [place] Glucose Reference Range is dependent on time and content of last meal. Glucose of more than 200 mg/dL in a nonstressed, ambulatory subject supports the diagnosis of Diabetes Mellitus. PERFORMED BY: [facility] [address] [place] [address] PATHOLOGIST MARKETING SERVICES SPECIALIST EZRA MCCLAIN M.D. Performed By: #### G LULS #### Point of Care testing , Glucose [Mass/Vol] 253 mg/dL Normal [facility] Comment on above: Result Comment: [place] Glucose Reference Range is dependent on time and content of last meal. Glucose of more than 200 mg/dL in a nonstressed, ambulatory subject supports the diagnosis of Diabetes Mellitus. PERFORMED BY: [facility] [address] [place] [address] PATHOLOGIST MARKETING SERVICES SPECIALIST EZRA MCCLAIN M.D. Performed By: #### G FLYNN #### Point of Care testing , Alanine aminotransferase [En zymatic activity/volume] in Serum or PlasmaOrdered By: Obartur Mejiaomar on 09-13-2022 ALT [Catalytic activity/Vol] 59 U/L 7-52 [facility] Albumin [Mass/volume] in Ser um or Plasma by Bromocresol green (BCG) dye binding methoOrdered By: Obsruthidamiryam Mejiaomar on 09-13-2022 Albumin BCG dye [Mass/Vol] 4.6 g/dL 3.5-5.7 [facility] Alkaline phosphatase [Enzyma tic activity/volume] in Serum or PlasmaOrdered By: Obsruthidamiryam Mejiaomar on 09-13-2022 ALP [Catalytic activity/Vol] 103 U/L 34-104 [facility] Aspartate aminotransferase [ Enzymatic activity/volume] in Serum or PlasmaOrdered By: Obsruthidamiryam Mejiaomar on 09-13-2022 AST [Catalytic activity/Vol] 80 U/L 13-39 [facility] Basophils Auto (Bld) [#/Vol] Ordered By: Obsruthida Robertoomar on 09-13-2022 Basophils (Bld) [#/Vol] 0.0 10*3/uL 0.0-0.2 [facility] Basophils/100 WBC Auto (Bld) Ordered By: [facility] Robertoomar on 09-13-2022 Basophils/100 WBC (Bld) 0.2 % . [facility] Bilirubin.total [Mass/volume ] in Serum or PlasmaOrdered By: Obsruthidamiryam Mejiaomar on 09-13-2022 Bilirubin [Mass/Vol] 0.4 mg/dL 0.3-1.0 [facility] Calcium [Mass/volume] in Ser um or PlasmaOrdered By: Obsruthidamiryam Daromar on 09-13-2022 Calcium [Mass/Vol] 9.1 mg/dL 8.6-10.3 [facility] Carbon dioxide, total [Moles /volume] in Serum or PlasmaOrdered By: Obsruthidamiryam Mejiaomar on 09-13-2022 CO2 [Moles/Vol] 29.3 mmol/L 21.0-31.0 [facility] Chloride [Moles/volume] in S caitlyn or PlasmaOrdered By: Marilyn Sun on 09-13-2022 Chloride [Moles/Vol] 96 mmol/L 98-107 [facility] Complete Blood Count Auto Di ffon 09-13-2022 Basophils (Bld) [#/Vol] 0.0 10*3/uL Normal 0.0-0.2 [facility] Comment on above: Result Comment: PERF ORMED BY: [facility] [place] [address] PATHOLOGIST MARKETING SERVICES SPECIALIST EZRA MCCLAIN M.D. Performed By: #### G LULS #### Point of Care testing , Basophils/100 WBC (Bld) 0.2 % Normal . [facility] Comment on above: Performed By: #### G LULS #### Point of Care testing , Eosinophils (Bld) [#/Vol] 0.0 10*3/uL Normal 0.0-0.45 [facility] Comment on above: Performed By: #### G LULS #### Point of Care testing , Eosinophils/100 WBC (Bld) 0.0 % Normal . [facility] Comment on above: Performed By: #### G LULS #### Point of Care testing , Erythrocyte distribution width (RBC) [Ratio] 18.2 % High 11.9-15.3 [facility] Comment on above: Performed By: #### G LULS #### Point of Care testing , Hematocrit (Bld) [Volume fraction] 38.3 % Normal 34.0-46.4 [facility] Comment on above: Performed By: #### G LULS #### Point of Care testing , Hemoglobin (Bld) [Mass/Vol] 12.7 g/dL Normal 11.8-15.4 [facility] Comment on above: Performed By: #### G LULS #### Point of Care testing , Lymphocytes (Bld) [#/Vol] 0.5 10*3/uL Low 1.00-4.8 [facility] Comment on above: Performed By: #### G LULS #### Point of Care testing , Lymphocytes/100 WBC (Bld) 6.4 % Normal . [facility] Comment on above: Performed By: #### G LULS #### Point of Care testing , MCH (RBC) [Entitic mass] 31.7 pg Normal 24.7-34.3 [facility] Comment on above: Performed By: #### G LULS #### Point of Care testing , MCV (RBC) [Entitic vol] 95.9 fL Normal 80-100 [facility] Comment on above: Performed By: #### G LULS #### Point of Care testing , Mean Corpuscular HGB Conc 33.1 g/dL Normal 32.0-35.0 [facility] Comment on above: Performed By: #### G LULS #### Point of Care testing , Monocytes (Bld) [#/Vol] 0.3 10*3/uL Normal 0.0-0.8 [facility] Comment on above: Performed By: #### G LULS #### Point of Care testing , Monocytes/100 WBC (Bld) 3.8 % Normal . [facility] Comment on above: Performed By: #### G LULS #### Point of Care testing , Neutrophils (Bld) [#/Vol] 6.8 10*3/uL Normal 1.8-7.7 [facility] Comment on above: Performed By: #### G LULS #### Point of Care testing , Neutrophils/100 WBC (Bld) 89.6 % Normal . [facility] Comment on above: Performed By: #### G LULS #### Point of Care testing , NRBC% 0.0 /100{WBC} Normal 0-0.5 [facility] Comment on above: Performed By: #### G LULS #### Point of Care testing , Platelet mean volume (Bld) [Entitic vol] 7.5 fL Normal 6.3-10.7 [facility] Comment on above: Performed By: #### G LULS #### Point of Care testing , Platelets (Bld) [#/Vol] 201 10*3/uL Normal 150-450 [facility] Comment on above: Performed By: #### Loly PRUETT #### Point of Care testing , RBC (Bld) [#/Vol] 4.00 10*6/uL Normal 3.60-5.00 [facility] Comment on above: Performed By: #### Loly RPUETT #### Point of Care testing , WBC (Bld) [#/Vol] 7.6 10*3/uL Normal 3.8-11.6 [facility] Comment on above: Performed By: #### Loly PRUETT #### Point of Care testing , Comprehensive Metabolic Pane usman 09-13-2022 Albumin [Mass/Vol] 4.6 g/dL Normal 3.5-5.7 [facility] Comment on above: Performed By: #### Loly PRUETT #### Point of Care testing , Albumin/Globulin [Mass ratio] 1.7 {ratio} Normal [facility] Comment on above: Performed By: ###Kailey PRUETT #### Point of Care testing , ALP [Catalytic activity/Vol] 103 U/L Normal 34-104 [facility] Comment on above: Performed By: ###Kailey PRUETT #### Point of Care testing , ALT [Catalytic activity/Vol] 59 U/L High 7-52 [facility] Comment on above: Performed By: #### Loly PRUETT #### Point of Care testing , Anion gap [Moles/Vol] Not performed Normal 6.0-15.0 [facility] Comment on above: Performed By: #### Loly PRUETT #### Point of Care testing , AST [Catalytic activity/Vol] 80 U/L High 13-39 [facility] Comment on above: Performed By: #### Loly PRUETT #### Point of Care testing , Bilirubin [Mass/Vol] 0.4 mg/dL Normal 0.3-1.0 [facility] Comment on above: Performed By: #### Loly PRUETT #### Point of Care testing , Calcium [Mass/Vol] 9.1 mg/dL Normal 8.6-10.3 [facility] Comment on above: Performed By: #### G ROSALIELS #### Point of Care testing , Chloride [Moles/Vol] 96 mmol/L Low 98-107 [facility] Comment on above: Performed By: #### G ROSALIELS #### Point of Care testing , CO2 [Moles/Vol] 29.3 mmol/L Normal 21.0-31.0 [facility] Comment on above: Performed By: #### G LULS #### Point of Care testing , Creatinine [Mass/Vol] 0.85 mg/dL Normal 0.60-1.20 [facility] Comment on above: Performed By: #### G ROSALIELS #### Point of Care testing , Creatinine Clr Calc Pharmacy 104.67 [facility] Comment on above: Result Comment: PERF ORMED BY: [facility] [address] [place] [address] PATHOLOGIST MARKETING SERVICES SPECIALIST EZRA MCCLAIN M.D. Performed By: #### G LULS #### Point of Care testing , GFR/1.73 sq M.predicted MDRD (S/P/Bld) [Vol rate/Area] mL/min/{1.73_m2} [facility] Comment on above: Performed By: #### G ROSALIELS #### Point of Care testing , Globulin (S) [Mass/Vol] 2.7 g/dL [facility] Comment on above: Performed By: #### G ROSALIELS #### Point of Care testing , Glucose [Mass/Vol] 284 mg/dL High 74-109 [facility] Comment on above: Result Comment: [place] Glucose Reference Range is dependent on time and content of last meal. Glucose of more than 200 mg/dL in a nonstressed, ambulatory subject supports the diagnosis of Diabetes Mellitus. ADA recommended reference range Performed By: #### G LULS #### Point of Care testing , Potassium Normal 3.5-5.1 [facility] Comment on above: Result Comment: Spec imen hemolyzed, redraw requested Performed By: #### G LULS #### Point of Care testing , Protein [Mass/Vol] 7.3 g/dL Normal 6.4-8.9 [facility] Comment on above: Performed By: #### G LULS #### Point of Care testing , Sodium [Moles/Vol] 134 mmol/L Low 136-145 [facility] Comment on above: Performed By: #### G LULS #### Point of Care testing , Urea nitrogen [Mass/Vol] 37 mg/dL High 7-25 [facility] Comment on above: Performed By: #### G LULS #### Point of Care testing , Creatinine [Mass/volume] in Serum or PlasmaOrdered By: Marilyn Sun on 09-13-2022 Creatinine [Mass/Vol] 0.85 mg/dL 0.60-1.20 [facility] Eosinophils Auto (Bld) [#/Vo l]Ordered By: Marilyn Sun on 09-13-2022 Eosinophils (Bld) [#/Vol] 0.0 10*3/uL 0.0-0.45 [facility] Eosinophils/100 WBC Auto (Bl d)Ordered By: Marilyn Riosr on 09-13-2022 Eosinophils/100 WBC (Bld) 0.0 % . [facility] Erythrocyte distribution wid th Auto (RBC) [Ratio]Ordered By: Marilyn Sun on 09-13-2022 Erythrocyte distribution width (RBC) [Ratio] 18.2 % 11.9-15.3 [facility] Globulin Calc (S) [Mass/Vol] Ordered By: Marilyn Sun on 09-13-2022 Globulin (S) [Mass/Vol] 2.7 g/dL [facility] Glucose Poct Glucometerson 0 09-13-2022 Commemt1 Glu2: Cleaned Meter Normal [facility] Comment on above: Result Comment: PERF ORMED BY: [facility] [place] [address] PATHOLOGIST MARKETING SERVICES SPECIALIST EZRA MCCLAIN M.D. Performed By: #### G LULS #### Point of Care testing , Glucose [Mass/Vol] 375 mg/dL Normal [facility] Comment on above: Result Comment: [place] om Glucose Reference Range is dependent on time and content of last meal. Glucose of more than 200 mg/dL in a nonstressed, ambulatory subject supports the diagnosis of Diabetes Mellitus. Performed By: #### G LULS #### Point of Care testing , Glucose [Mass/Vol] 360 mg/dL Normal [facility] Comment on above: Result Comment: [place] om Glucose Reference Range is dependent on time and content of last meal. Glucose of more than 200 mg/dL in a nonstressed, ambulatory subject supports the diagnosis of Diabetes Mellitus. PERFORMED BY: [place] [id number] PATHOLOGIST MARKETING SERVICES SPECIALIST EZRA MCCLAIN M.D. Performed By: #### C MP, CBC #### [address] Glucose [Mass/Vol] 348 mg/dL Normal [facility] Comment on above: Result Comment: [place] om Glucose Reference Range is dependent on time and content of last meal. Glucose of more than 200 mg/dL in a nonstressed, ambulatory subject supports the diagnosis of Diabetes Mellitus. PERFORMED BY: [place] [phone] PATHOLOGIST MARKETING SERVICES SPECIALIST EZRA MCCLAIN M.D. Performed By: #### G LULS #### Point of Care testing , Commemt1 Glu2: Cleaned Meter Normal [facility] Comment on above: Result Comment: PERF ORMED BY: [place] [address] PATHOLOGIST MARKETING SERVICES SPECIALIST EZRA MCCLAIN M.D. Performed By: #### G LULS #### Point of Care testing , Glucose [Mass/Vol] 261 mg/dL Normal [facility] Comment on above: Result Comment: [place] om Glucose Reference Range is dependent on time and content of last meal. Glucose of more than 200 mg/dL in a nonstressed, ambulatory subject supports the diagnosis of Diabetes Mellitus. Performed By: #### G LULS #### Point of Care testing , Glucose [Mass/volume] in Ser um or PlasmaOrdered By: Marilyn Sun on 09-13-2022 Glucose [Mass/Vol] 284 mg/dL 74-109 [facility] Comment on above: ADA recommended refe rence rangeRandom Glucose Reference Range is dependent on time and content of last meal. Glucose of more than 200 mg/dL in a nonstressed, ambulatory subject supports the diagnosis of Diabetes Mellitus. Hematocrit Auto (Bld) [Volum e fraction]Ordered By: Marilyn Sun on 09-13-2022 Hematocrit (Bld) [Volume fraction] 38.3 % 34.0-46.4 [facility] Hemoglobin [Mass/volume] in BloodOrdered By: Marilyn Sun on 09-13-2022 Hemoglobin (Bld) [Mass/Vol] 12.7 g/dL 11.8-15.4 [facility] Laboratory - Chemistry and C hemistry - challengeOrdered By: Marilyn Sun on 09-13-2022 GFR/1.73 sq M.predicted MDRD (S/P/Bld) [Vol rate/Area] mL/min/{1.73_m2} [facility] Leukocytes [#/volume] correc jeffrey for nucleated erythrocytes in Blood by Automated counOrdered By: Marilyn Sun on 09-13-2022 WBC corrected for nucl RBC Auto (Bld) [#/Vol] 7.6 10*3/uL 3.8-11.6 [facility] Lymphocytes Auto (Bld) [#/Vo l]Ordered By: Marilyn Sun on 09-13-2022 Lymphocytes (Bld) [#/Vol] 0.5 10*3/uL 1.00-4.8 [facility] Lymphocytes/100 WBC Auto (Bl d)Ordered By: Marilyn Sun on 09-13-2022 Lymphocytes/100 WBC (Bld) 6.4 % . [facility] MCH Auto (RBC) [Entitic mass ]Ordered By: Marilyn Sun on 09-13-2022 MCH (RBC) [Entitic mass] 31.7 pg 24.7-34.3 [facility] MCHC Auto (RBC) [Mass/Vol]Or dered By: Marilyn Sun on 09-13-2022 MCHC (RBC) [Mass/Vol] 33.1 g/dL 32.0-35.0 [facility] MCV Auto (RBC) [Entitic vol] Ordered By: Marilyn Riosr on 09-13-2022 MCV (RBC) [Entitic vol] 95.9 fL 80-100 [facility] Monocytes Auto (Bld) [#/Vol] Ordered By: Marilyn Riosr on 09-13-2022 Monocytes (Bld) [#/Vol] 0.3 10*3/uL 0.0-0.8 [facility] Monocytes/100 WBC Auto (Bld) Ordered By: Marilyn Riosr on 09-13-2022 Monocytes/100 WBC (Bld) 3.8 % . [facility] Neutrophils Auto (Bld) [#/Vo l]Ordered By: Marilyn Sun on 09-13-2022 Neutrophils (Bld) [#/Vol] 6.8 10*3/uL 1.8-7.7 [facility] Neutrophils/100 WBC Auto (Bl d)Ordered By: Marilyn Sun on 09-13-2022 Neutrophils/100 WBC (Bld) 89.6 % . [facility] No Panel InformationOrdered By: José Sanchez on 09-13-2022 Bedside Glucose Comment Glu2: cleaned meter [facility] No Panel InformationOrdered By: Marilyn Sun on 09-13-2022 Pharmacy Creatinine Clearance (Chem 104.67 [facility] Nucleated erythrocytes [Pres ence] in Blood by Automated countOrdered By: Marilyn Sun on 09-13-2022 Nucleated RBC Auto Ql (Bld) 0.0 /100{WBC} 0-0.5 [facility] Platelet mean volume Auto (B ld) [Entitic vol]Ordered By: Marilyn Sun on 09-13-2022 Platelet mean volume (Bld) [Entitic vol] 7.5 fL 6.3-10.7 [facility] Platelets Auto (Bld) [#/Vol] Ordered By: Obaydah Daromar on 09-13-2022 Platelets (Bld) [#/Vol] 201 10*3/uL 150-450 [facility] Potassium [Moles/volume] in Serum or PlasmaOrdered By: Obaydah Daromar on 09-13-2022 Potassium [Moles/Vol] 4.5 mmol/L 3.5-5.1 [facility] Protein [Mass/volume] in Ser um or PlasmaOrdered By: Obaydah Daromar on 09-13-2022 Protein [Mass/Vol] 7.3 g/dL 6.4-8.9 [facility] RBC Auto (Bld) [#/Vol]Ordere d By: Obsruthidah Daromar on 09-13-2022 RBC (Bld) [#/Vol] 4.00 10*6/uL 3.60-5.00 [facility] Redraw Potassiumon Potassium [Moles/Vol] 4.5 mmol/L Normal 3.5-5.1 [facility] Comment on above: Order Comment: FIRST SPECMEN HEMOLYZED Result Comment: PERF ORMED BY: [facility] [address] [place] [address] PATHOLOGIST MARKETING SERVICES SPECIALIST EZRA MCCLAIN M.D. Performed By: #### G LULS #### Point of Care testing , Serum or plasma albumin/glob ulin mass ratioOrdered By: Rockydamiryam Mejiaomar on 09-13-2022 Albumin/Globulin [Mass ratio] 1.7 {ratio} [facility] Serum or plasma anion gap de terminationOrdered By: Obsruthidah Daromar on 09-13-2022 Anion gap [Moles/Vol] TNP [facility] Comment on above: Test not performed Sodium [Moles/volume] in Ser um or PlasmaOrdered By: Obsruthidah Daromar on 09-13-2022 Sodium [Moles/Vol] 134 mmol/L 136-145 [facility] Urea nitrogen [Mass/volume] in Serum or PlasmaOrdered By: Obsruthidah Robertoomar on 09-13-2022 Urea nitrogen [Mass/Vol] 37 mg/dL 725 [facility] WBC Auto (Bld) [#/Vol]Ordere d By: Marilyn Mejiaomar on 09-13-2022 WBC (Bld) [#/Vol] 7.6 10*3/uL 3.8-11.6 [facility] Complete Blood Count Auto Di ffon 09-12-2022 Basophils (Bld) [#/Vol] 0.0 10*3/uL Normal 0.0-0.2 [facility] Comment on above: Result Comment: PERF ORMED BY: [place] [address] PATHOLOGIST MARKETING SERVICES SPECIALIST EZRA MCCLAIN M.D. Performed By: #### H S TROP #### [address] Basophils/100 WBC (Bld) 0.2 % Normal . [facility] Comment on above: Performed By: #### H S TROP #### [address] Eosinophils (Bld) [#/Vol] 0.0 10*3/uL Normal 0.0-0.45 [facility] Comment on above: Performed By: #### H S TROP #### [address] Eosinophils/100 WBC (Bld) 0.0 % Normal . [facility] Comment on above: Performed By: #### H S TROP #### [address] Erythrocyte distribution width (RBC) [Ratio] 17.5 % High 11.9-15.3 [facility] Comment on above: Performed By: #### H S TROP #### [address] Hematocrit (Bld) [Volume fraction] 36.3 % Normal 34.0-46.4 [facility] Comment on above: Performed By: #### H S TROP #### [place] [address] Hemoglobin (Bld) [Mass/Vol] 12.0 g/dL Normal 11.8-15.4 [facility] Comment on above: Performed By: #### H S TROP #### [address] Lymphocytes (Bld) [#/Vol] 0.3 10*3/uL Low 1.00-4.8 [facility] Comment on above: Performed By: #### H S TROP #### [address] Lymphocytes/100 WBC (Bld) 4.1 % Normal . [facility] Comment on above: Performed By: #### H S TROP #### [address] MCH (RBC) [Entitic mass] 31.7 pg Normal 24.7-34.3 [facility] Comment on above: Performed By: #### H S TROP #### [address] MCV (RBC) [Entitic vol] 95.9 fL Normal 80-100 [facility] Comment on above: Performed By: #### H S TROP #### [address] Mean Corpuscular HGB Conc 33.1 g/dL Normal 32.0-35.0 [facility] Comment on above: Performed By: #### H S TROP #### [address] Monocytes (Bld) [#/Vol] 0.3 10*3/uL Normal 0.0-0.8 [facility] Comment on above: Performed By: #### H S TROP #### [place] [address] [place] Monocytes/100 WBC (Bld) 3.8 % Normal . [facility] Comment on above: Performed By: #### H S TROP #### [place] [address] [place] Neutrophils (Bld) [#/Vol] 6.3 10*3/uL Normal 1.8-7.7 [facility] Comment on above: Performed By: #### H S TROP #### [address] Neutrophils/100 WBC (Bld) 91.9 % Normal . [facility] Comment on above: Performed By: #### H S TROP #### [facility] [address] NRBC% 0.0 /100{WBC} Normal 0-0.5 [facility] Comment on above: Performed By: #### H S TROP #### [address] Platelet mean volume (Bld) [Entitic vol] 7.5 fL Normal 6.3-10.7 [facility] Comment on above: Performed By: #### H S TROP #### [address] Platelets (Bld) [#/Vol] 177 10*3/uL Normal 150-450 [facility] Comment on above: Performed By: #### H S TROP #### [address] RBC (Bld) [#/Vol] 3.79 10*6/uL Normal 3.60-5.00 [facility] Comment on above: Performed By: #### H S TROP #### [address] WBC (Bld) [#/Vol] 6.8 10*3/uL Normal 3.8-11.6 [facility] Comment on above: Performed By: #### H S TROP #### [address] Comprehensive Metabolic Pane usman 09-12-2022 Albumin [Mass/Vol] 4.1 g/dL Normal 3.5-5.7 [facility] Comment on above: Performed By: #### H S TROP #### [address] Albumin/Globulin [Mass ratio] 1.6 {ratio} Normal [facility] Comment on above: Performed By: #### H S TROP #### [facility] [address] [place] [address] ALP [Catalytic activity/Vol] 101 U/L Normal 34-104 [facility] Comment on above: Performed By: #### H S TROP #### [facility] [address] ALT [Catalytic activity/Vol] 45 U/L Normal 7-52 [facility] Comment on above: Performed By: #### H S TROP #### [facility] [address] [place] [address] Anion gap [Moles/Vol] 12.8 mmol/L Normal 6.0-15.0 [facility] Comment on above: Performed By: #### H S TROP #### [facility] [address] [place] [address] AST [Catalytic activity/Vol] 55 U/L High 13-39 [facility] Comment on above: Performed By: #### H S TROP #### [address] Bilirubin [Mass/Vol] 0.4 mg/dL Normal 0.3-1.0 [facility] Comment on above: Performed By: #### H S TROP #### [facility] [address] [place] [address] Calcium [Mass/Vol] 8.8 mg/dL Normal 8.6-10.3 [facility] Comment on above: Performed By: #### H S TROP #### [facility] [address] [place] [address] [place] Chloride [Moles/Vol] 96 mmol/L Low 98-107 [facility] Comment on above: Performed By: #### H S TROP #### [facility] [address] [place] [address] CO2 [Moles/Vol] 28.8 mmol/L Normal 21.0-31.0 [facility] Comment on above: Performed By: #### H S TROP #### [address] Creatinine [Mass/Vol] 0.90 mg/dL Normal 0.60-1.20 [facility] Comment on above: Performed By: #### H S TROP #### [address] Creatinine Clr Calc Pharmacy 100.[address] [facility] Comment on above: Result Comment: PERF ORMED BY: [place] [address] PATHOLOGIST MARKETING SERVICES SPECIALIST EZRA MCCLAIN M.D. Performed By: #### H S TROP #### [address] GFR/1.73 sq M.predicted MDRD (S/P/Bld) [Vol rate/Area] mL/min/{1.73_m2} Normal [facility] Comment on above: Performed By: #### H S TROP #### [address] Globulin (S) [Mass/Vol] 2.5 g/dL Normal [facility] Comment on above: Performed By: #### H S TROP #### [address] Glucose [Mass/Vol] 289 mg/dL High 74-109 [facility] Comment on above: Result Comment: [place] Glucose Reference Range is dependent on time and content of last meal. Glucose of more than 200 mg/dL in a nonstressed, ambulatory subject supports the diagnosis of Diabetes Mellitus. ADA recommended reference range Performed By: #### H S TROP #### [address] Potassium [Moles/Vol] 4.6 mmol/L Normal 3.5-5.1 [facility] Comment on above: Performed By: #### H S TROP #### [address] Protein [Mass/Vol] 6.6 g/dL Normal 6.4-8.9 [facility] Comment on above: Performed By: #### H S TROP #### [facility] [address] [place] [address] [place] Sodium [Moles/Vol] 133 mmol/L Low 136-145 [facility] Comment on above: Performed By: #### H S TROP #### [facility] [address] Urea nitrogen [Mass/Vol] 29 mg/dL High 7-25 [facility] Comment on above: Performed By: #### H S TROP #### [facility] [address] Glucose Poct Glucometerson 0 - Commemt1 Glu2: Cleaned Meter [facility] Comment on above: Result Comment: PERF ORMED BY: [place] [address] PATHOLOGIST MARKETING SERVICES SPECIALIST EZRA MCCLAIN M.D. Performed By: #### C MP, CBC #### [address] Glucose [Mass/Vol] 203 mg/dL Normal [facility] Comment on above: Result Comment: [place] om Glucose Reference Range is dependent on time and content of last meal. Glucose of more than 200 mg/dL in a nonstressed, ambulatory subject supports the diagnosis of Diabetes Mellitus. Performed By: #### C MP, CBC #### [facility] [address] [place] [address] Commemt1 Glu2: Cleaned Meter Normal [facility] Comment on above: Result Comment: PERF ORMED BY: [place] [address] PATHOLOGIST MARKETING SERVICES SPECIALIST EZRA MCCLAIN M.D. Performed By: #### G LULS #### Point of Care testing , Glucose [Mass/Vol] 331 mg/dL Normal [facility] Comment on above: Result Comment: [place] om Glucose Reference Range is dependent on time and content of last meal. Glucose of more than 200 mg/dL in a nonstressed, ambulatory subject supports the diagnosis of Diabetes Mellitus. Performed By: #### G LULS #### Point of Care testing , Commemt1 Glu2: Cleaned Meter Normal [facility] Comment on above: Result Comment: PERF ORMED BY: [place] [address] PATHOLOGIST MARKETING SERVICES SPECIALIST EZRA MCCLAIN M.D. Performed By: #### C MP, CBC #### [address] Glucose [Mass/Vol] 282 mg/dL Normal [facility] Comment on above: Result Comment: [place] om Glucose Reference Range is dependent on time and content of last meal. Glucose of more than 200 mg/dL in a nonstressed, ambulatory subject supports the diagnosis of Diabetes Mellitus. Performed By: #### C MP, CBC #### [address] Commemt1 Glu2: Cleaned Meter Normal [facility] Comment on above: Result Comment: PERF ORMED BY: [place] [address] PATHOLOGIST MARKETING SERVICES SPECIALIST EZRA MCCLAIN M.D. Performed By: #### C MP, CBC #### [address] Glucose [Mass/Vol] 219 mg/dL Normal [facility] Comment on above: Result Comment: [place] om Glucose Reference Range is dependent on time and content of last meal. Glucose of more than 200 mg/dL in a nonstressed, ambulatory subject supports the diagnosis of Diabetes Mellitus. Performed By: #### C MP, CBC #### [address] Complete Blood Count Auto Di ffon 09-11-2022 Basophils (Bld) [#/Vol] 0.1 10*3/uL Normal 0.0-0.2 [facility] Comment on above: Result Comment: PERF ORMED BY: [place] [address] PATHOLOGIST MARKETING SERVICES SPECIALIST EZRA MCCLAIN M.D. Performed By: #### C MP, CBC #### [facility] [address] [place] [address] [place] Basophils/100 WBC (Bld) 1.1 % Normal . [facility] Comment on above: Performed By: #### C MP, CBC #### [facility] [address] [place] [address] [place] Eosinophils (Bld) [#/Vol] 0.0 10*3/uL Normal 0.0-0.45 [facility] Comment on above: Performed By: #### C MP, CBC #### [facility] [address] Eosinophils/100 WBC (Bld) 0.0 % Normal . [facility] Comment on above: Performed By: #### C MP, CBC #### [address] Erythrocyte distribution width (RBC) [Ratio] 17.5 % High 11.9-15.3 [facility] Comment on above: Performed By: #### C MP, CBC #### [address] Hematocrit (Bld) [Volume fraction] 38.9 % Normal 34.0-46.4 [facility] Comment on above: Performed By: #### C MP, CBC #### [address] Hemoglobin (Bld) [Mass/Vol] 12.7 g/dL Normal 11.8-15.4 [facility] Comment on above: Performed By: #### C MP, CBC #### [facility] [address] [place] [address] [place] Lymphocytes (Bld) [#/Vol] 0.3 10*3/uL Low 1.00-4.8 [facility] Comment on above: Performed By: #### C MP, CBC #### [facility] [address] [place] [address] [place] Lymphocytes/100 WBC (Bld) 4.7 % Normal . [facility] Comment on above: Performed By: #### C MP, CBC #### [facility] [address] MCH (RBC) [Entitic mass] 31.7 pg Normal 24.7-34.3 [facility] Comment on above: Performed By: #### C MP, CBC #### [address] MCV (RBC) [Entitic vol] 96.7 fL Normal 80-100 [facility] Comment on above: Performed By: #### C MP, CBC #### [address] Mean Corpuscular HGB Conc 32.8 g/dL Normal 32.0-35.0 [facility] Comment on above: Performed By: #### C MP, CBC #### [address] Monocytes (Bld) [#/Vol] 0.1 10*3/uL Normal 0.0-0.8 [facility] Comment on above: Performed By: #### C MP, CBC #### [address] Monocytes/100 WBC (Bld) 0.9 % Normal . [facility] Comment on above: Performed By: #### C MP, CBC #### [address] Neutrophils (Bld) [#/Vol] 6.0 10*3/uL Normal 1.8-7.7 [facility] Comment on above: Performed By: #### C MP, CBC #### [address] Neutrophils/100 WBC (Bld) 93.3 % Normal . [facility] Comment on above: Performed By: #### C MP, CBC #### [address] NRBC% 0.2 /100{WBC} Normal 0-0.5 [facility] Comment on above: Performed By: #### C MP, CBC #### [address] Platelet mean volume (Bld) [Entitic vol] 7.5 fL Normal 6.3-10.7 [facility] Comment on above: Performed By: #### C MP, CBC #### [address] Platelets (Bld) [#/Vol] 185 10*3/uL Normal 150-450 [facility] Comment on above: Performed By: #### C MP, CBC #### [address] RBC (Bld) [#/Vol] 4.02 10*6/uL Normal 3.60-5.00 [facility] Comment on above: Performed By: #### C MP, CBC #### [address] WBC (Bld) [#/Vol] 6.4 10*3/uL Normal 3.8-11.6 [facility] Comment on above: Performed By: #### C MP, CBC #### [address] Comprehensive Metabolic Pane usman 09-11-2022 Albumin [Mass/Vol] 4.5 g/dL Normal 3.5-5.7 [facility] Comment on above: Performed By: #### C MP, CBC #### [address] Albumin/Globulin [Mass ratio] 1.5 {ratio} Normal [facility] Comment on above: Performed By: #### C MP, CBC #### [address] ALP [Catalytic activity/Vol] 130 U/L High 34-104 [facility] Comment on above: Performed By: #### C MP, CBC #### [address] ALT [Catalytic activity/Vol] 59 U/L High 7-52 [facility] Comment on above: Performed By: #### C MP, CBC #### [address] Anion gap [Moles/Vol] Not performed Normal 6.0-15.0 [facility] Comment on above: Performed By: #### C MP, CBC #### [facility] [address] AST [Catalytic activity/Vol] 90 U/L High 13-39 [facility] Comment on above: Performed By: #### C MP, CBC #### [facility] [address] Bilirubin [Mass/Vol] 0.5 mg/dL Normal 0.3-1.0 [facility] Comment on above: Performed By: #### C MP, CBC #### [facility] [address] Calcium [Mass/Vol] 9.3 mg/dL Normal 8.6-10.3 [facility] Comment on above: Performed By: #### C MP, CBC #### [facility] [address] Chloride [Moles/Vol] 94 mmol/L Low 98-107 [facility] Comment on above: Performed By: #### C MP, CBC #### [facility] [address] [place] [address] CO2 [Moles/Vol] 28.7 mmol/L Normal 21.0-31.0 [facility] Comment on above: Performed By: #### C MP, CBC #### [facility] [address] [place] [address] Creatinine [Mass/Vol] 0.87 mg/dL Normal 0.60-1.20 [facility] Comment on above: Performed By: #### C MP, CBC #### [facility] [address] [place] [address] [place] Creatinine Clr Calc Pharmacy 104.[address] [facility] Comment on above: Result Comment: PERF ORMED BY: [place] [address] PATHOLOGIST MARKETING SERVICES SPECIALIST EZRA MCCLAIN M.D. Performed By: #### C MP, CBC #### [address] GFR/1.73 sq M.predicted MDRD (S/P/Bld) [Vol rate/Area] mL/min/{1.73_m2} Normal [facility] Comment on above: Performed By: #### C MP, CBC #### [address] Globulin (S) [Mass/Vol] 3.0 g/dL Normal [facility] Comment on above: Performed By: #### C MP, CBC #### [address] Glucose [Mass/Vol] 222 mg/dL Significant change up 74-109 [facility] Comment on above: Result Comment: [facility] Glucose Reference Range is dependent on time and content of last meal. Glucose of more than 200 mg/dL in a nonstressed, ambulatory subject supports the diagnosis of Diabetes Mellitus. ADA recommended reference range Performed By: #### C MP, CBC #### [address] Potassium Normal 3.5-5.1 [facility] Comment on above: Result Comment: Spec imen hemolyzed, redraw requested Performed By: #### C MP, CBC #### [address] Protein [Mass/Vol] 7.5 g/dL Normal 6.4-8.9 [facility] Comment on above: Performed By: #### C MP, CBC #### [address] Sodium [Moles/Vol] 135 mmol/L Low 136-145 [facility] Comment on above: Performed By: #### C MP, CBC #### [address] Urea nitrogen [Mass/Vol] 28 mg/dL High 7-25 [facility] Comment on above: Performed By: #### C MP, CBC #### [address] [facility] echo transthoracicon [facility] echo transthoracic [facility] [place] [address] [place] [address] Echocardiogram Signed Patient: Carmen Bledsoe MR#: [id number] 9 : 1960 Acct:[id number] Age/Sex: 61 / F ADM Date: 09/10/22 Loc: Room: [address] [place] [address] Type: ADM IN Attending Dr: Marilyn Sun MD Ordering Provider: Marilyn Sun MD Date of Service: 09/10/2204/25/1327 [facility] echo transthoracic: Chest Pain/CHF Copies to: MD Marilyn Tang MD Weight: 351 lb Performed By: PANTERA Banegas BSA: 2.5 m2 BP: 114/67 mmHg HR: 92 Reason For Study: Chest Pain/CHF History: COPD, HTN, Hyperlipidemia, Sleep apnea, LV Enlargement, Smoker, [place] use Interpretation Summary The left ventricular wall motion is normal. Mild concentric left ventricular hypertrophy. Ejection Fraction = 60-65%. A variety of Doppler measurements indicate impaired left ventricular relaxation, which is associated with grade I/IV or mild diastolic dysfunction. The left atrium appears mildly dilated. Borderline aortic root dilatation. The aortic root is 3.8 cm Trivial valvular aortic stenosis. The aortic valve maximum pressure gradient is 22 mmHg. The aortic valve mean gradient is 12 mmHg. There is no comparison study available. Procedure/Quality: A two-dimensional transthoracic echocardiogram was performed. A two-dimensional transthoracic echocardiogram with color flow and Doppler was performed. The study was technically good in quality. Left Ventricle: The left ventricular size is normal. Mild concentric left ventricular hypertrophy. Ejection Fraction = 60-65%. A variety of Doppler measurements indicate impaired left ventricular relaxation, which is associated with grade I/IV or mild diastolic dysfunction. The left ventricular wall motion is normal. Left Atrium: The left atrium appears mildly dilated. Right Atrium: The right atrium appears normal in size. Right Ventricle: The right ventricular size, thickness and function are normal. Aortic Valve: The aortic valve is not well visualized. Trivial valvular aortic stenosis. The aortic valve maximum pressure gradient is 22 mmHg. The aortic valve mean gradient is 12 mmHg. No aortic regurgitation is present. Mitral Valve: The mitral valve is normal in structure and function. There is no mitral regurgitation noted. Tricuspid Valve: The tricuspid valve is normal in structure and function. No tricuspid regurgitation. Pulmonic Valve: The pulmonic valve is normal in structure and function. Arteries: Borderline aortic root dilatation. The aortic root is 3.8 cm. Pericardium/Pleura: No pericardial effusion seen. There is no pleural effusion. IVC/Hepatic Viens: The inferior vena cava is normal in size, with a normal collapsibility index. Measurements with Normals IVSd: 1.1 cm (0.7-1.1 cm)LVIDd: 5.7 cm (3.7-5.4 cm) LVPWd: 1.2 cm (0.7-1.1 cm)LVIDs: 3.3 cm (2.3-3.6 cm) LA dimension: 4.8 cm (2.3-4.0 cm)Ao root diam: 3.6 cm(2.0-3.6 cm) asc Aorta Diam: 3.7 cm(2.1-3.4cm) Doppler with Normals RVSP(TR): 27.9 mmHg (18-35mmHg) LV V1 max: 113.8 cm/sec (0.7-1.7m/s)MV E max jairon: 123.0 cm/sec(0.8-1.3m/s) MV A max jairon: 142.6 cm/sec(0.0-0.0m/s) MV E/A: 0.86 (<1.5) MMode/2D Measurements Calculations RVDd: 3.5 cm FS: 41.9 % Ao root area: LVOT diam: 2.3 cm TAPSE: 2.2 cm EDV(Teich): 10.3 cm2 LVOT area: 4.1 cm2 RV S Jairon: 159.7 ml 18.8 cm/sec ESV(Teich): 44.4 ml EF(Teich): 72.2 % __ LVLd ap4: 6.9 cm SV(MOD-sp4): LAV(MOD-sp4): LA A2 area: 12.3 cm2 EDV(MOD-sp4): 30.8 ml 49.6 ml 59.0 ml LAV(MOD-sp2): LA A4 area: 19.0 cm2 LVLs ap4: 6.0 cm 27.6 ml LA length (vol): ESV(MOD-sp4): 5.9 cm 28.2 ml LA vol: 33.6 ml EF(MOD-sp4): 52.2 % LA vol index: 13.7 ml/m2 Doppler Measurements Calculations MV V2 max: E/E' lat: 9.5 MV P1/2t max jairon: Ao V2 max: 169.7 cm/sec E/E' med: 5.0 162.9 cm/sec 237.5 cm/sec MV max PG: MV P1/2t: 55.2 msec Ao max P.5 mmHg 22.6 mmHg MV V2 mean: MVA(P1/2t): 4.0 cm2 Ao mean P.2 cm/sec MV dec slope: 12.7 mmHg MV mean P.1 cm/sec2 Ao V2 mean: 5.8 mmHg 169.7 cm/sec MV V2 VTI: 40.8 cm Ao V2 VTI: 49.9 cm MVA(VTI): 2.4 cm2 FLAVIA(I,D): 1.9 cm2 FLAVIA(V,D): 2.0 cm2 __ LV V1 max PG: TV max PG: TR max jairon: 5.2 mmHg 18.0 mmHg 211.7 cm/sec LV V1 mean PG: TR max P.9 mmHg 2.3 mmHg RAP systole: 10.0 mmHg LV V1 mean: 69.3 cm/sec LV V1 VTI: 23.8 cm Transcribed By: SCV Performed At: 09/11/22 0727 Signed By: Maikol Siddiqui MD 09/11/22 1155 [facility] Glucose Poct Glucometerson 0 09-11-2022 Commemt1 Glu2: Cleaned Meter [facility] Comment on above: Result Comment: PERF ORMED BY: [place] [address] PATHOLOGIST MARKETING SERVICES SPECIALIST EZRA MCCLAIN M.D. Performed By: #### C MP, CBC #### [place] [address] [place] Glucose [Mass/Vol] 236 mg/dL Normal [facility] Comment on above: Result Comment: [place] om Glucose Reference Range is dependent on time and content of last meal. Glucose of more than 200 mg/dL in a nonstressed, ambulatory subject supports the diagnosis of Diabetes Mellitus. Performed By: #### C MP, CBC #### [place] [address] [place] Glucose [Mass/Vol] 289 mg/dL Normal [facility] Comment on above: Result Comment: [place] om Glucose Reference Range is dependent on time and content of last meal. Glucose of more than 200 mg/dL in a nonstressed, ambulatory subject supports the diagnosis of Diabetes Mellitus. PERFORMED BY: [place] [address] PATHOLOGIST MARKETING SERVICES SPECIALIST EZRA MCCLAIN M.D. Performed By: #### H S TROP #### [place] [address] [place] Glucose [Mass/Vol] 297 mg/dL Normal [facility] Comment on above: Result Comment: [place] om Glucose Reference Range is dependent on time and content of last meal. Glucose of more than 200 mg/dL in a nonstressed, ambulatory subject supports the diagnosis of Diabetes Mellitus. PERFORMED BY: [facility] [address] [place] [address] PATHOLOGIST MARKETING SERVICES SPECIALIST EZRA MCCLAIN M.D. Performed By: #### C MP, CBC #### [facility] [address] [place], [place] [address] [place] Glucose [Mass/Vol] 226 mg/dL Normal [facility] Comment on above: Result Comment: [place] om Glucose Reference Range is dependent on time and content of last meal. Glucose of more than 200 mg/dL in a nonstressed, ambulatory subject supports the diagnosis of Diabetes Mellitus. PERFORMED BY: [place] [address] PATHOLOGIST MARKETING SERVICES SPECIALIST EZRA MCCLAIN M.D. Performed By: #### G LULS #### Point of Care testing , Redraw Potassiumon Potassium [Moles/Vol] 4.5 mmol/L Normal 3.5-5.1 [facility] Comment on above: Result Comment: PERF ORMED BY: [place] [address] PATHOLOGIST MARKETING SERVICES SPECIALIST EZRA MCCLAIN M.D. Performed By: #### H S TROP #### [facility] [address] [place] [address] Troponin I High Sensitivityo n 09-11-2022 Troponin I High Sensitivity 5.3 pg/mL Normal 0.0-15.0 [facility] Comment on above: Result Comment: PERF ORMED BY: [place] [id number] PATHOLOGIST MARKETING SERVICES SPECIALIST EZRA MCCLAIN M.D. Performed By: #### C MP, CBC #### [facility] [address] [place] [address] [place] A1C with Estimated Average G luon 09-10-2022 Glucose [Mass/Vol] 128 mg/dL Normal [facility] Comment on above: Order Comment: Comme nt add on Result Comment: PERF ORMED BY: [place] [phone] PATHOLOGIST MARKETING SERVICES SPECIALIST EZRA MCCLAIN M.D. Performed By: #### C MP, CBC #### [facility] [address] [place] [address] [place] HbA1c (Bld) [Mass fraction] 6.1 % High 4.3-5.6 [facility] Comment on above: Order Comment: Comme nt add on Result Comment: Incr eased risk for diabetes: 5.7 - 6.4 diabetes: >6.4 glycemic control for adults with diabetes: <7.0 Performed By: #### C MP, CBC #### [facility] [address] Activated partial thrombopla stin time (aPTT) in platelet poor plasma by coagulation aOrdered By: Joo Ramos on 09-10-2022 aPTT Coag (PPP) [Time] 31.2 s 25.1-36.5 [facility] Alanine aminotransferase [En zymatic activity/volume] in Serum or PlasmaOrdered By: Joo Ramos on 09-10-2022 ALT [Catalytic activity/Vol] 50 U/L 7-52 [facility] Albumin [Mass/volume] in Ser um or Plasma by Bromocresol green (BCG) dye binding methoOrdered By: Joo Ramos on 09-10-2022 Albumin BCG dye [Mass/Vol] 4.4 g/dL 3.5-5.7 [facility] Alkaline phosphatase [Enzyma tic activity/volume] in Serum or PlasmaOrdered By: Joo Ramos on 09-10-2022 ALP [Catalytic activity/Vol] 121 U/L 34-104 [facility] Aspartate aminotransferase [ Enzymatic activity/volume] in Serum or PlasmaOrdered By: Joo Ramos on 09-10-2022 AST [Catalytic activity/Vol] 71 U/L 13-39 [facility] B-Type Natriuretic Peptideon 09-10-2022 Natriuretic peptide B (Bld) [Mass/Vol] 6.0 pg/mL Normal 5-100 [facility] Comment on above: Result Comment: PERF ORMED BY: [place] [address] PATHOLOGIST MARKETING SERVICES SPECIALIST EZRA MCCLAIN M.D. Performed By: #### C MP, CBC #### [facility] [address] Basic Metabolic Panelon 09-01 Anion gap [Moles/Vol] 13.7 mmol/L Normal 6.0-15.0 [facility] Comment on above: Performed By: #### C MP, CBC #### [facility] [address] Calcium [Mass/Vol] 9.6 mg/dL Normal 8.6-10.3 [facility] Comment on above: Performed By: #### C MP, CBC #### [facility] [address] [place] [address] [place] Chloride [Moles/Vol] 99 mmol/L Normal 98-107 [facility] Comment on above: Performed By: #### C MP, CBC #### [facility] [address] [place] [address] [place] CO2 [Moles/Vol] 29.0 mmol/L Normal 21.0-31.0 [facility] Comment on above: Performed By: #### C MP, CBC #### [facility] [address] [place] [address] [place] Creatinine [Mass/Vol] 0.83 mg/dL Normal 0.60-1.20 [facility] Comment on above: Performed By: #### C MP, CBC #### [facility] [address] [place] [address] [place] Creatinine Clr Calc Pharmacy 109.[address] [facility] Comment on above: Result Comment: PERF ORMED BY: [place] [address] PATHOLOGIST MARKETING SERVICES SPECIALIST EZRA MCCLAIN M.D. Performed By: #### C MP, CBC #### [facility] [address] [place] [address] [place] GFR/1.73 sq M.predicted MDRD (S/P/Bld) [Vol rate/Area] mL/min/{1.73_m2} Normal [facility] Comment on above: Performed By: #### C MP, CBC #### [facility] [address] [place] [address] [place] Glucose [Mass/Vol] 91 mg/dL Normal 74-109 [facility] Comment on above: Result Comment: [place] Glucose Reference Range is dependent on time and content of last meal. Glucose of more than 200 mg/dL in a nonstressed, ambulatory subject supports the diagnosis of Diabetes Mellitus. ADA recommended reference range Performed By: #### C MP, CBC #### [facility] [address] [place] [address] [place] Potassium [Moles/Vol] 4.7 mmol/L Normal 3.5-5.1 [facility] Comment on above: Performed By: #### C MP, CBC #### [facility] [address] Sodium [Moles/Vol] 137 mmol/L Normal 136-145 [facility] Comment on above: Performed By: #### C MP, CBC #### [facility] [address] Urea nitrogen [Mass/Vol] 24 mg/dL Normal 7-25 [facility] Comment on above: Performed By: #### C MP, CBC #### [facility] [address] Basophils Auto (Bld) [#/Vol] Ordered By: Joo Ramos on 09-10-2022 Basophils (Bld) [#/Vol] 0.1 10*3/uL 0.0-0.2 [facility] Basophils/100 WBC Auto (Bld) Ordered By: Joo Ramos on 09-10-2022 Basophils/100 WBC (Bld) 1.1 % . [facility] Bilirubin Test strip Ql (U)O rdered By: Joo Ramos on 09-10-2022 Bilirubin Ql (U) Negative Negative [facility] Bilirubin.direct [Mass/volum e] in Serum or PlasmaOrdered By: Joo Ramos on 09-10-2022 Bilirubin.direct [Mass/Vol] 0.10 mg/dL 0.03-0.18 [facility] Bilirubin.total [Mass/volume ] in Serum or PlasmaOrdered By: Joo Ramos on 09-10-2022 Bilirubin [Mass/Vol] 0.4 mg/dL 0.3-1.0 [facility] BioFire Not Detectedon 09-10 BioFire Not Detected Not detected Normal Not Detecte [facility] Comment on above: Result Comment: This is a duplicate RP2.1 COVID (PCR) result to be used for statistical tracking purpose only. PERFORMED BY: [facility] [address] [place] [address] PATHOLOGIST MARKETING SERVICES SPECIALIST EZRA MCCLAIN M.D. Performed By: #### C MP, CBC #### [facility] [address] [place] [address] COVID-19 Detected/Not Detect edOrdered By: Marilyn Sun on 09-10-2022 SARS-CoV-2 (COVID-19) RNA TERESO+non-probe Ql (Nph) Not detected Not Detecte [facility] Comment on above: This is a duplicate RP2.1 COVID (PCR) result to be used for statistical tracking purpose only. Calcium [Mass/volume] in Ser um or PlasmaOrdered By: Joo Ramos on 09-10-2022 Calcium [Mass/Vol] 9.6 mg/dL 8.6-10.3 [facility] Carbon dioxide, total [Moles /volume] in Serum or PlasmaOrdered By: Joo Ramos on 09-10-2022 CO2 [Moles/Vol] 29.0 mmol/L 21.0-31.0 [facility] Chloride [Moles/volume] in S caitlyn or PlasmaOrdered By: Joo Ramos on 09-10-2022 Chloride [Moles/Vol] 99 mmol/L 98-107 [facility] Cholesterol [Mass/volume] in Serum or PlasmaOrdered By: Marilyn Sun on 09-10-2022 Cholesterol [Mass/Vol] 169 mg/dL 140-200 [facility] Comment on above: Chol less than 200 m g/dl low riskChol 201-239 mg/dl borderline riskChol 240 mg/dl and greater high risk Cholesterol in LDL Calc [Mas s/Vol]Ordered By: Marilyn Sun on 09-10-2022 Cholesterol in LDL [Mass/Vol] 62 mg/dL 0-100 [facility] Comment on above: LDL ATP III CLASSIFI CATIONLDL less than 100 mg/dL OptimalLDL 100-129 mg/dL Near or above optimalLDL 130-159 mg/dL Borderline highLDL 160-189 mg/dL HighLDL greater than 189 mg/dL Very high Cholesterol in VLDL Calc [Ma ss/Vol]Ordered By: Marilyn Sun on 09-10-2022 Cholesterol in VLDL [Mass/Vol] 34 mg/dL [facility] Color Auto (U)Ordered By: Tod Ramos on 09-10-2022 Color (U) Yellow Yellow [facility] Complete Blood Count Auto Di ffon 09-10-2022 Basophils (Bld) [#/Vol] 0.1 10*3/uL Normal 0.0-0.2 [facility] Comment on above: Result Comment: PERF ORMED BY: [place] [address] PATHOLOGIST MARKETING SERVICES SPECIALIST ERZA MCCLAIN M.D. Performed By: #### C MP, CBC #### [address] Basophils/100 WBC (Bld) 1.1 % Normal . [facility] Comment on above: Performed By: #### C MP, CBC #### [place] [address] [place] Eosinophils (Bld) [#/Vol] 0.1 10*3/uL Normal 0.0-0.45 [facility] Comment on above: Performed By: #### C MP, CBC #### [facility] [address] [place] [address] [place] Eosinophils/100 WBC (Bld) 1.6 % Normal . [facility] Comment on above: Performed By: #### C MP, CBC #### [address] Erythrocyte distribution width (RBC) [Ratio] 17.5 % High 11.9-15.3 [facility] Comment on above: Performed By: #### C MP, CBC #### [facility] [address] [place] [address] [place] Hematocrit (Bld) [Volume fraction] 37.7 % Normal 34.0-46.4 [facility] Comment on above: Performed By: #### C MP, CBC #### [address] Hemoglobin (Bld) [Mass/Vol] 12.5 g/dL Normal 11.8-15.4 [facility] Comment on above: Performed By: #### C MP, CBC #### [facility] [address] Lymphocytes (Bld) [#/Vol] 1.1 10*3/uL Normal 1.00-4.8 [facility] Comment on above: Performed By: #### C MP, CBC #### [facility] [address] Lymphocytes/100 WBC (Bld) 21.5 % Normal . [facility] Comment on above: Performed By: #### C MP, CBC #### [facility] [address] MCH (RBC) [Entitic mass] 31.8 pg Normal 24.7-34.3 [facility] Comment on above: Performed By: #### C MP, CBC #### [address] MCV (RBC) [Entitic vol] 96.1 fL Normal 80-100 [facility] Comment on above: Performed By: #### C MP, CBC #### [address] Mean Corpuscular HGB Conc 33.1 g/dL Normal 32.0-35.0 [facility] Comment on above: Performed By: #### C MP, CBC #### [address] Monocytes (Bld) [#/Vol] 0.3 10*3/uL Normal 0.0-0.8 [facility] Comment on above: Performed By: #### C MP, CBC #### [facility] [address] [place] [address] [place] Monocytes/100 WBC (Bld) 18.14 % Normal 0.00-20.00 [facility] Comment on above: Performed By: #### C MP, CBC #### [facility] [address] [place] [address] [place] Monocytes/100 WBC (Bld) 5.1 % Normal . [facility] Comment on above: Performed By: #### C MP, CBC #### [facility] [address] [place] [id number] [place] Neutrophils (Bld) [#/Vol] 3.7 10*3/uL Normal 1.8-7.7 [facility] Comment on above: Performed By: #### C MP, CBC #### [facility] [address] [place] [id number] [place] Neutrophils/100 WBC (Bld) 70.7 % Normal . [facility] Comment on above: Performed By: #### C MP, CBC #### [facility] [address] [place] [address] [place] NRBC% 0.3 /100{WBC} Normal 0-0.5 [facility] Comment on above: Performed By: #### C MP, CBC #### [facility] [address] Platelet mean volume (Bld) [Entitic vol] 7.2 fL Normal 6.3-10.7 [facility] Comment on above: Performed By: #### C MP, CBC #### [facility] [address] [place] [address] [place] Platelets (Bld) [#/Vol] 180 10*3/uL Normal 150-450 [facility] Comment on above: Performed By: #### C MP, CBC #### [facility] [address] [place] [address] [place] RBC (Bld) [#/Vol] 3.92 10*6/uL Normal 3.60-5.00 [facility] Comment on above: Performed By: #### C MP, CBC #### [facility] [address] [place] [address] [place] WBC (Bld) [#/Vol] 5.2 10*3/uL Normal 3.8-11.6 [facility] Comment on above: Performed By: #### C MP, CBC #### [facility] [address] [place] [id number] [place] Creatine Kinaseon 09-10-2022 CK [Catalytic activity/Vol] 39 U/L Normal 30-223 [facility] Comment on above: Performed By: #### C MP, CBC #### [place] [id number] [facility] Creatine kinase [Enzymatic a ctivity/volume] in Serum or PlasmaOrdered By: Joo Ramos on 09-10-2022 CK [Catalytic activity/Vol] 39 U/L 30-223 [facility] Creatinine [Mass/volume] in Serum or PlasmaOrdered By: Joo Ramos on 09-10-2022 Creatinine [Mass/Vol] 0.83 mg/dL 0.60-1.20 [facility] ECG 12 lead ECGon 09-10-2022 ECG 12 lead ECG [facility] [address] [place] [id number] Electrocardiograph Report Signed Patient: Carmen Bledsoe MR#: [id number] 9 : 1960 Acct:[id number] Age/Sex: 61 / F ADM Date: 09/10/22 Loc: Room: [address] [place] [address] Type: ADM IN Attending Dr: Marilyn Sun MD Ordering Provider: Marilyn Sun MD Date of Service: 09/10/2204/25/1527 ECG/ECG 12 lead ECG: chest pain Copies to: Test Reason : Blood Pressure : / mmHG Vent. Rate : 093 BPM Atrial Rate : 093 BPM P-R Int : 154 ms QRS Dur : 088 ms QT Int : 350 ms P-R-T Axes : 061 -07 049 degrees QTc Int : 435 ms Normal sinus rhythm Cannot rule out Anterior infarct (cited on or before 10-SEP-2022) Abnormal ECG When compared with ECG of 10-SEP-2022 11:23, (Unconfirmed) No significant change was found Confirmed by MAIKOL SIDDIQUI MD ([id number]) on 09/11/2022 6:53:53 AM Referred By: Electronically Signed By:MAIKOL SIDDIQUI MD Transcribed By: MUS Signed By Maikol Siddiqui MD 0 09/11/[address] [facility] ECG 12 lead ECG [facility] [address] [place] [id number] Electrocardiograph Report Signed Patient: Carmen Bledsoe MR#: [id number] 9 : 1960 Acct:[id number] Age/Sex: 61 / F ADM Date: 09/10/22 Loc: Room: [address] [place] [address] Type: ADM IN Attending Dr: Marilyn Sun MD Ordering Provider: Joo Ramos DO Date of Service: 09/10/2204/25/1113 ECG/ECG 12 lead ECG: Chest Pain Copies to: Test Reason : Blood Pressure : / mmHG Vent. Rate : 078 BPM Atrial Rate : 078 BPM P-R Int : 180 ms QRS Dur : 078 ms QT Int : 364 ms P-R-T Axes : 056 027 026 degrees QTc Int : 414 ms Normal sinus rhythm Cannot rule out Anterior infarct , age undetermined Abnormal ECG No previous ECGs available Confirmed by Joo Ramos [place] ([id number]) on 09/10/2022 6:56:24 PM Referred By: Electronically Signed By:Joo Ramos DO Transcribed By: MUS Signed By Joo Ramos DO [address] [facility] Eosinophils Auto (Bld) [#/Vo l]Ordered By: Joo Ramos on 09-10-2022 Eosinophils (Bld) [#/Vol] 0.1 10*3/uL 0.0-0.45 [facility] Eosinophils/100 WBC Auto (Bl d)Ordered By: Joo Ramos on 09-10-2022 Eosinophils/100 WBC (Bld) 1.6 % . [facility] Erythrocyte distribution wid th Auto (RBC) [Ratio]Ordered By: Joo Ramos on 09-10-2022 Erythrocyte distribution width (RBC) [Ratio] 17.5 % 11.9-15.3 [facility] Globulin Calc (S) [Mass/Vol] Ordered By: Joo Ramos on 09-10-2022 Globulin (S) [Mass/Vol] 2.7 g/dL [facility] Glucose Poct Glucometerson 0 09-10-2022 Glucose [Mass/Vol] 188 mg/dL Normal [facility] Comment on above: Result Comment: [place] Glucose Reference Range is dependent on time and content of last meal. Glucose of more than 200 mg/dL in a nonstressed, ambulatory subject supports the diagnosis of Diabetes Mellitus. PERFORMED BY: [facility] [address] [place] [address] PATHOLOGIST MARKETING SERVICES SPECIALIST EZRA MCCLAIN M.D. Performed By: #### G LULS #### Point of Care testing , Glucose [Mass/Vol] 118 mg/dL Normal [facility] Comment on above: Result Comment: [facility] Glucose Reference Range is dependent on time and content of last meal. Glucose of more than 200 mg/dL in a nonstressed, ambulatory subject supports the diagnosis of Diabetes Mellitus. PERFORMED BY: [facility] [address] [place] [address] PATHOLOGIST MARKETING SERVICES SPECIALIST EZRA MCCLAIN M.D. Performed By: #### G LULS #### Point of Care testing , Glucose [Mass/volume] in Ser um or PlasmaOrdered By: Joo Ramos on 09-10-2022 Glucose [Mass/Vol] 91 mg/dL 74-109 [facility] Comment on above: ADA recommended refe rence rangeRandom Glucose Reference Range is dependent on time and content of last meal. Glucose of more than 200 mg/dL in a nonstressed, ambulatory subject supports the diagnosis of Diabetes Mellitus. Glucose mean value [Mass/vol ume] in Blood Estimated from glycated hemoglobinOrdered By: Marilyn Sun on 09-10-2022 Average glucose Estimated from glycated hemoglobin (Bld) [Mass/Vol] 128 mg/dL [facility] Hematocrit Auto (Bld) [Volum e fraction]Ordered By: Joo Ramos on 09-10-2022 Hematocrit (Bld) [Volume fraction] 37.7 % 34.0-46.4 [facility] Hemoglobin A1c percentageOrd ered By: Marilyn Sun on 09-10-2022 HbA1c (Bld) [Mass fraction] 6.1 % 4.3-5.6 [facility] Comment on above: Increased risk for d iabetes: 5.7 - 6.4diabetes: >6.4glycemic control for adults with diabetes: <7.0 Hemoglobin [Mass/volume] in BloodOrdered By: Joo Ramos on 09-10-2022 Hemoglobin (Bld) [Mass/Vol] 12.5 g/dL 11.8-15.4 [facility] Hepatic Panelon 09-10-2022 Albumin [Mass/Vol] 4.4 g/dL Normal 3.5-5.7 [facility] Comment on above: Performed By: #### C MP, CBC #### [facility] [address] Albumin/Globulin [Mass ratio] 1.6 {ratio} Normal [facility] Comment on above: Performed By: #### C MP, CBC #### [facility] [address] ALP [Catalytic activity/Vol] 121 U/L High 34-104 [facility] Comment on above: Performed By: #### C MP, CBC #### [facility] [address] [place] [id number] [facility] ALT [Catalytic activity/Vol] 50 U/L Normal 7-52 [facility] Comment on above: Performed By: #### C MP, CBC #### [facility] [address] [place] [id number] [place] AST [Catalytic activity/Vol] 71 U/L High 13-39 [facility] Comment on above: Performed By: #### C MP, CBC #### [facility] [address] [place] [id number] [facility] Bilirubin [Mass/Vol] 0.4 mg/dL Normal 0.3-1.0 [facility] Comment on above: Performed By: #### C MP, CBC #### [facility] [address] [place] [address] [place] Bilirubin,Indirect 0.3 mg/dL Normal [facility] Comment on above: Performed By: #### C MP, CBC #### [facility] [address] [place] [id number] [place] Bilirubin.indirect [Mass/Vol] 0.10 mg/dL Normal 0.03-0.18 [facility] Comment on above: Performed By: #### C MP, CBC #### [facility] [address] [place] [address] [place] Globulin (S) [Mass/Vol] 2.7 g/dL Normal [facility] Comment on above: Performed By: #### C MP, CBC #### [facility] [address] [place] [address] [facility] Protein [Mass/Vol] 7.1 g/dL Normal 6.4-8.9 [facility] Comment on above: Performed By: #### C MP, CBC #### [facility] [address] [place] [id number] [facility] Ketones Auto test strip (U) [Mass/Vol]Ordered By: Joo Ramos on 09-10-2022 Ketones (U) [Mass/Vol] Negative Negative [facility] Laboratory - Chemistry and C hemistry - challengeOrdered By: Joo Ramos on 09-10-2022 GFR/1.73 sq M.predicted MDRD (S/P/Bld) [Vol rate/Area] mL/min/{1.73_m2} [facility] Laboratory - CoagulationOrde red By: Joo Ramos on 09-10-2022 PT Coag (PPP) [Time] 11.8 s 9.0-12.9 [facility] Leukocytes [#/volume] correc jeffrey for nucleated erythrocytes in Blood by Automated counOrdered By: Joo Ramos on 09-10-2022 WBC corrected for nucl RBC Auto (Bld) [#/Vol] 5.2 10*3/uL 3.8-11.6 [facility] Lipid Panelon 09-10-2022 Cholesterol [Mass/Vol] 169 mg/dL Normal 140-200 [facility] Comment on above: Order Comment: Comme nt add on Result Comment: Chol less than 200 mg/dl low risk Chol 201-239 mg/dl borderline risk Chol 240 mg/dl and greater high risk Performed By: #### C MP, CBC #### [facility] [address] [place] [id number] [place] Cholesterol in HDL [Mass/Vol] 73 mg/dL Normal 35-85 [facility] Comment on above: Order Comment: Comme nt add on Result Comment: HDL CHOL ATP-III CLASSIFICATION Cardiovascular Risk HDL > or equal to 60 mg/dL LOW HDL < 40 mg/dL HIGH Performed By: #### C MP, CBC #### [facility] [address] Cholesterol.total/Ch olesterol in HDL [Mass ratio] 2.3 {ratio} Normal <5.0 [facility] Comment on above: Order Comment: Comme nt add on Result Comment: PERF ORMED BY: [place] [address] PATHOLOGIST MARKETING SERVICES SPECIALIST EZRA MCCLAIN M.D. Performed By: #### C MP, CBC #### [address] LDL Cholesterol,Calculat ed 62 mg/dL Normal 0-100 [facility] Comment on above: Order Comment: Comme nt add on Result Comment: LDL ATP III CLASSIFICATION LDL less than 100 mg/dL Optimal LDL 100-129 mg/dL Near or above optimal LDL 130-159 mg/dL Borderline high LDL 160-189 mg/dL High LDL greater than 189 mg/dL Very high Performed By: #### C MP, CBC #### [address] Triglyceride w/Reflex 172 mg/dL High 0-149 [facility] Comment on above: Order Comment: Comme nt add on Result Comment: TRIG ATP III CLASSIFICATION TRIG less than 150 mg/dL Normal TRIG 150-199 mg/dL Borderline high TRIG 200-500 mg/dL High TRIG greater than 500 mg/dL Very high Standard traceable to the Center for Disease Conrtrol and Prevention (CDC) test method. Performed By: #### C MP, CBC #### [facility] [address] VLDL CHOLESTEROL 34 mg/dL Normal [facility] Comment on above: Order Comment: Comme nt add on Performed By: #### C MP, CBC #### [facility] [address] Lymphocytes Auto (Bld) [#/Vo l]Ordered By: Joo Ramos on 09-10-2022 Lymphocytes (Bld) [#/Vol] 1.1 10*3/uL 1.00-4.8 [facility] Lymphocytes/100 WBC Auto (Bl d)Ordered By: Joo Ramos on 09-10-2022 Lymphocytes/100 WBC (Bld) 21.5 % . [facility] MCH Auto (RBC) [Entitic mass ]Ordered By: Joo Ramos on 09-10-2022 MCH (RBC) [Entitic mass] 31.8 pg 24.7-34.3 [facility] MCHC Auto (RBC) [Mass/Vol]Or dered By: Joo Ramos on 09-10-2022 MCHC (RBC) [Mass/Vol] 33.1 g/dL 32.0-35.0 [facility] MCV Auto (RBC) [Entitic vol] Ordered By: Joo Ramos on 09-10-2022 MCV (RBC) [Entitic vol] 96.1 fL 80-100 [facility] Monocyte distribution width [Entitic volume] in Blood by AutomatedOrdered By: Joo Ramos on 09-10-2022 Monocyte distribution width Auto (Bld) [Entitic vol] 18.14 % 0.00-20.00 [facility] Monocytes Auto (Bld) [#/Vol] Ordered By: Joo Ramos on 09-10-2022 Monocytes (Bld) [#/Vol] 0.3 10*3/uL 0.0-0.8 [facility] Monocytes/100 WBC Auto (Bld) Ordered By: Joo Ramos on 09-10-2022 Monocytes/100 WBC (Bld) 5.1 % . [facility] Natriuretic peptide B [Mass/ Vol]Ordered By: oJo Ramos on 09-10-2022 Natriuretic peptide B (Bld) [Mass/Vol] 6.0 pg/mL 5-100 [facility] Neutrophils Auto (Bld) [#/Vo l]Ordered By: Joo Ramos on 09-10-2022 Neutrophils (Bld) [#/Vol] 3.7 10*3/uL 1.8-7.7 [facility] Neutrophils/100 WBC Auto (Bl d)Ordered By: Joo Ramos on 09-10-2022 Neutrophils/100 WBC (Bld) 70.7 % . [facility] Nitrite Test strip Ql (U)Ord ered By: Joo Ramos on 09-10-2022 Nitrite Ql (U) Negative Negative [facility] No Panel InformationOrdered By: Joo Ramos on 09-10-2022 Pharmacy Creatinine Clearance (Chem 109.50 [facility] Nucleated erythrocytes [Pres ence] in Blood by Automated countOrdered By: Joo Ramos on 09-10-2022 Nucleated RBC Auto Ql (Bld) 0.3 /100{WBC} 0-0.5 [facility] Partial Thromboplastin Timeo n 09-10-2022 aPTT Coag (Bld) [Time] 31.2 s Normal 25.1-36.5 [facility] Comment on above: Result Comment: PERF ORMED BY: [place] [address] PATHOLOGIST MARKETING SERVICES SPECIALIST EZRA MCCLAIN M.D. Performed By: #### C MP, CBC #### [address] Platelet mean volume Auto (B ld) [Entitic vol]Ordered By: Joo Ramos on 09-10-2022 Platelet mean volume (Bld) [Entitic vol] 7.2 fL 6.3-10.7 [facility] Platelet poor plasma interna tional normalized ratio (INR) by coagulation assay (relatOrdered By: Joo Ramos on 09-10-2022 INR Coag (PPP) [Relative time] 1.0 {INR} [facility] Comment on above: INR Therapeutic Rang e A) Pre- and Peroperative OAT started two weeks before surgery. NOT HIP SURGERY: 1.5 - 2.5 HIP SURGERY: 2 - 3B) Primary and secondary prevention of venous THROMBOSIS: 2 - 3C) Active venous thrombosis, pulmonary embolismand prevention of recurrent venous thrombosis: 2 - 3D) Prevention of arterial thromboembolismincluding patients with mechanical heart valves: 3 - 4.5 Platelets Auto (Bld) [#/Vol] Ordered By: Joo Ramos on 09-10-2022 Platelets (Bld) [#/Vol] 180 10*3/uL 150-450 [facility] Potassium [Moles/volume] in Serum or PlasmaOrdered By: Joo Ramos on 09-10-2022 Potassium [Moles/Vol] 4.7 mmol/L 3.5-5.1 [facility] Protein Auto test strip (U) [Mass/Vol]Ordered By: Joo Ramos on 09-10-2022 Protein (U) [Mass/Vol] Negative Negative [facility] Protein [Mass/volume] in Ser um or PlasmaOrdered By: Joo Ramos on 09-10-2022 Protein [Mass/Vol] 7.1 g/dL 6.4-8.9 [facility] Prothrombin Time INRon 09-10 INR Coag (PPP) [Relative time] 1.0 {INR} Normal [facility] Comment on above: Result Comment: INR Therapeutic Range A) Pre- and Peroperative OAT started two weeks before surgery. NOT HIP SURGERY: 1.5 - 2.5 HIP SURGERY: 2 - 3 B) Primary and secondary prevention of venous THROMBOSIS: 2 - 3 C) Active venous thrombosis, pulmonary embolism and prevention of recurrent venous thrombosis: 2 - 3 D) Prevention of arterial thromboembolism including patients with mechanical heart valves: 3 - 4.5 Performed By: #### C MP, CBC #### [facility] [address] PT Coag (PPP) [Time] 11.8 s Normal 9.0-12.9 [facility] Comment on above: Performed By: #### C MP, CBC #### [facility] [address] RBC Auto (Bld) [#/Vol]Ordere d By: Joo Ramos on 09-10-2022 RBC (Bld) [#/Vol] 3.92 10*6/uL 3.60-5.00 [facility] Respiratory (Upper) Panel, P CRon 09-10-2022 Respiratory (Upper) Panel, PCR Adenovirus Not detected Bordetella parapertussis Not detected Chlamydia pneumoniae Not detected Coronavirus 229E Not detected Coronavirus HKU1 Not detected Coronavirus NL63 Not detected Coronavirus OC43 Not detected Influenza A Not detected Influenza B Not detected Human Metapneumovirus Not detected Mycoplasma pneumoniae Not detected Parainfluenza Virus 1 Not detected Parainfluenza Virus 2 Not detected Parainfluenza Virus 3 Not detected Parainfluenza Virus 4 Not detected Bordetella pertussis-ptxP Not detected Human Rhino/Enterovirus Not detected Resp. Syncytial Virus Not detected COVID-19 Detected/Not Detected Not detected PERFORMED BY: [facility] [address] [place] [address] PATHOLOGIST MARKETING SERVICES SPECIALIST EZRA MCCLAIN M.D. Normal [facility] Comment on above: Performed By: #### C MP, CBC #### [facility] [address] Respiratory pathogens DNA an d RNA panel - Nasopharynx by TERESO with non-probe detectionOrdered By: Marilyn Sun on 09-10-2022 Respiratory pathogens DNA and RNA panel TERESO+non-probe (Nph) [facility] Serum or plasma albumin/glob ulin mass ratioOrdered By: Joo Ramos on 09-10-2022 Albumin/Globulin [Mass ratio] 1.6 {ratio} [facility] Serum or plasma anion gap de terminationOrdered By: Joo Ramos on 09-10-2022 Anion gap [Moles/Vol] 13.7 mmol/L 6.0-15.0 [facility] Serum or plasma high density lipoprotein (HDL) cholesterol measurementOrdered By: Marilyn Sun on 09-10-2022 Cholesterol in HDL [Mass/Vol] 73 mg/dL 35-85 [facility] Comment on above: HDL CHOL ATP-III CLA SSIFICATION Cardiovascular RiskHDL > or equal to 60 mg/dL LOWHDL < 40 mg/dL HIGH Serum or plasma non-glucuron idated bilirubin measurement (mass/volume)Ordered By: Joo Ramos on 09-10-2022 Bilirubin.indirect [Mass/Vol] 0.3 mg/dL [facility] Serum or plasma total choles terol/high density lipoprotein (HDL) cholesterol mass ratOrdered By: Marilyn Sun on 09-10-2022 Cholesterol.total/Ch olesterol in HDL [Mass ratio] 2.3 {ratio} <5.0 [facility] Sodium [Moles/volume] in Ser um or PlasmaOrdered By: Joo Ramos on 09-10-2022 Sodium [Moles/Vol] 137 mmol/L 136-145 [facility] Specific gravity Auto test s trip (U) [Rel density]Ordered By: Joo Ramos on 09-10-2022 Specific gravity (U) [Rel density] 1.005 1.001-1.030 [facility] Triglyceride [Mass/volume] i n Serum or PlasmaOrdered By: Marilyn Sun on 09-10-2022 Triglyceride [Mass/Vol] 172 mg/dL 0-149 [facility] Comment on above: TRIG ATP III CLASSIF ICATIONTRIG less than 150 mg/dL NormalTRIG 150-199 mg/dL Borderline highTRIG 200-500 mg/dL High TRIG greater than 500 mg/dL Very highStandard traceable to the Center for Disease Conrtrol and Prevention (CDC) test method. Troponin I High Sensitivityo n 09-10-2022 Troponin I High Sensitivity 6.3 pg/mL Normal 0.0-15.0 [facility] Comment on above: Result Comment: PERF ORMED BY: [place] [address] PATHOLOGIST MARKETING SERVICES SPECIALIST EZRA MCCLAIN M.D. Performed By: #### H S TROP #### [facility] [address] [place] [address] Troponin I High Sensitivity 6.6 pg/mL Normal 0.0-15.0 [facility] Comment on above: Result Comment: PERF ORMED BY: [place] [address] PATHOLOGIST MARKETING SERVICES SPECIALIST EZRA MCCLAIN M.D. Performed By: #### H S TROP #### [facility] [address] [place] [address] Troponin I High Sensitivity 6.3 pg/mL Normal 0.0-15.0 [facility] Comment on above: Result Comment: PERF ORMED BY: [place] [address] PATHOLOGIST MARKETING SERVICES SPECIALIST EZRA MCCLAIN M.D. Performed By: #### C MP, CBC #### [facility] [address] [place] [address] [place] Troponin I.cardiac [Mass/vol ume] in Serum or Plasma by Detection limit <= 0.01 ng/Ordered By: Marilyn Sun on 09-10-2022 Troponin I.cardiac DL <= 0.01 ng/mL [Mass/Vol] 5.3 pg/mL 0.0-15.0 [facility] Troponin I.cardiac [Mass/vol ume] in Serum or Plasma by Detection limit <= 0.01 ng/Ordered By: Joo Ramos on 09-10-2022 Troponin I.cardiac DL <= 0.01 ng/mL [Mass/Vol] 6.3 pg/mL 0.0-15.0 [facility] Urea nitrogen [Mass/volume] in Serum or PlasmaOrdered By: Joo Ramos on 09-10-2022 Urea nitrogen [Mass/Vol] 24 mg/dL 7-25 [facility] Urinalysison 09-10-2022 Appearance (U) Clear Normal Clear [facility] Comment on above: Order Comment: Name Collection Type:: Clean-Voided Midstream Performed By: #### C MP, CBC #### [facility] [address] [place] [address] [place] Bilirubin,Urine Negative Normal Negative [facility] Comment on above: Order Comment: Name Collection Type:: Clean-Voided Midstream Performed By: #### C MP, CBC #### [facility] [address] [place] [address] [place] Color (U) Yellow Normal Yellow [facility] Comment on above: Order Comment: Name Collection Type:: Clean-Voided Midstream Performed By: #### C MP, CBC #### [facility] [address] [place] [id number] [place] Glucose Ql (U) Normal Normal Normal [facility] Comment on above: Order Comment: Name Collection Type:: Clean-Voided Midstream Performed By: #### C MP, CBC #### [facility] [address] [place] [id number] [place] Ketones Ql (U) Negative Normal Negative [facility] Comment on above: Order Comment: Name Collection Type:: Clean-Voided Midstream Performed By: #### C MP, CBC #### [facility] [address] Leukocyte esterase Test strip Ql (U) Negative Normal Negative [facility] Comment on above: Order Comment: Name Collection Type:: Clean-Voided Midstream Performed By: #### C MP, CBC #### [facility] [address] [place] [address] [place] Nitrite,Urine Negative Normal Negative [facility] Comment on above: Order Comment: Name Collection Type:: Clean-Voided Midstream Performed By: #### C MP, CBC #### [address] Occult Blood,Urine Negative Normal Negative [facility] Comment on above: Order Comment: Name Collection Type:: Clean-Voided Midstream Result Comment: PERF ORMED BY: [place] [address] PATHOLOGIST MARKETING SERVICES SPECIALIST EZRA MCCLAIN M.D. Performed By: #### C MP, CBC #### [place] [address] [place] pH (U) 5.5 [pH] Normal 5.0-9.0 [facility] Comment on above: Order Comment: Name Collection Type:: Clean-Voided Midstream Performed By: #### C MP, CBC #### [place] [address] [place] Protein,Urine Negative Normal Negative [facility] Comment on above: Order Comment: Name Collection Type:: Clean-Voided Midstream Performed By: #### C MP, CBC #### [place] [address] [place] Specificy [place],Urine 1.005 Normal 1.001-1.030 [facility] Comment on above: Order Comment: Name Collection Type:: Clean-Voided Midstream Performed By: #### C MP, CBC #### [facility] [address] [place] [address] [place] Urobilinogen,Urine Normal Normal Normal [facility] Comment on above: Order Comment: Name Collection Type:: Clean-Voided Midstream Performed By: #### C MP, CBC #### [facility] [address] Urine clarity by refractomet ry automatedOrdered By: Joo Ramos on 09-10-2022 Clarity Refractometry automated (U) Clear Clear [facility] Urine glucose measurement by automated test strip (mass/volume)Ordered By: Joo Ramos on 09-10-2022 Glucose Auto test strip (U) [Mass/Vol] Normal mg/dL Normal [facility] Urine hemoglobin detection b y automated test stripOrdered By: Joo Ramos on 09-10-2022 Hemoglobin Auto test strip Ql (U) Negative Negative [facility] Urine leukocyte esterase det ection by automated test stripOrdered By: Joo Ramos on 09-10-2022 Leukocyte esterase Auto test strip Ql (U) Negative Negative [facility] Urobilinogen Auto test strip (U) [Mass/Vol]Ordered By: Joo Ramos on 09-10-2022 Urobilinogen (U) [Mass/Vol] Normal mg/dL Normal [facility] WBC Auto (Bld) [#/Vol]Ordere d By: Joo Ramos on 09-10-2022 WBC (Bld) [#/Vol] 5.2 10*3/uL 3.8-11.6 [facility] XR chest 2V*on 09-10-2022 XR chest 2V* [facility] [address] [place] [address] [place] [address] XRay Report Signed Patient: Carmen Bledsoe MR#: [id number] 9 : 1960 Acct:[id number] Age/Sex: 61 / F ADM Date: 09/10/22 Loc: ER Room: Type: PRE ER Attending Dr: Copies to: Joo Ramos DO Ordering Provider: Joo Ramos DO Date of Service: 09/10/22 XR/XR chest 2V*: Chest Pain Chest 2 views CLINICAL HISTORY: Recent diagnosis of enlarged ventricle. Shortness of breath, fatigue, chest pressure, bilateral leg swelling. COMPARISON: None FINDINGS: Cardiomegaly with mild vascular congestion. No consolidation pneumothorax pleural effusion or free air. XR/XR chest 2V* IMPRESSION: CARDIOMEGALY WITH MILD VASCULAR CONGESTION SUGGESTING UNDERLYING CHF. NO CONSOLIDATION TO SUGGEST PNEUMONIA. Impression dictated by: Jacques Vicente Jr., DFrancoOFranco09/10/2022 11:55 AM Dictation Location: [place] [address] Transcribed By: [facility] 09/10/22 115 Dictated By: Jacques Vicente Jr, DO 09/10/22 115 Signed By: 09/10/[address] [facility] pH Auto test strip (U)Ordere d By: Joo Ramos on 09-10-2022 pH (U) 5.5 [pH] 5.0-9.0 [facility] CHEMISTRYOrdered By: SYSTEM SYSTEM on 09-06-2022 Anion gap [Moles/Vol] 12 mmol/L Normal 6 - 16 mEq/L [facility] Calcium [Mass/Vol] 8.9 mg/dL Normal 8.9 - 11.1 mg/dL [facility] Chloride [Moles/Vol] 96 mmol/L Low 101 - 111 mmol/ L [facility] CO2 [Moles/Vol] 29 mmol/L Normal 21 - 31 mmol/L [facility] Creatinine [Mass/Vol] 0.9 mg/dL Normal 0.5 - 1.3 mg/dL [facility] Remisol GFR/1.73 sq M.predicted among blacks MDRD (S/P/Bld) [Vol rate/Area] mL/min/1.73 m2 Normal >=59mL/min/1.[address] [facility] Chem S GFR/1.73 sq M.predicted among non-blacks MDRD (S/P/Bld) [Vol rate/Area] mL/min/1.73 m2 Normal >=59mL/min/1.[address] [facility] Chem S Glucose [Mass/Vol] 102 mg/dL Normal 55 - 199 mg/dL [facility] Potassium [Moles/Vol] 4.3 mmol/L Normal 3.5 - 5.3 mmol/L [facility] Sodium [Moles/Vol] 133 mmol/L Low 135 - 145 mmol/L [facility] Remisol Urea nitrogen [Mass/Vol] 17 mg/dL Normal 5 - 21 mg/dL [facility]isol Urea nitrogen/Creatinine [Mass ratio] 19 mg/mg Normal 10 - 20 [facility] Remisol CHEMISTRYOrdered By: SYSTEM SYSTEM on 08-20-2022 Albumin [Mass/Vol] 4.1 g/dL Normal 3.3 - 5.0 gm/dL [facility] Remisol Albumin/Globulin [Mass ratio] 1.2 {ratio} Normal 1.1 - 2.2 [facility] Remisol ALP [Catalytic activity/Vol] 110 [iU]/d High 21 - 98 Int._Unit/L [facility] Rem[facility] ALT No additional P-5'-P [Catalytic activity/Vol] 55 [iU]/d High 6 - 46 Int._Unit/L [facility] Anion gap [Moles/Vol] 17 mmol/L High 6 - 16 mEq/L [facility] AST [Catalytic activity/Vol] 89 [iU]/d High 5 - 43 Int._Unit/L [facility] Bilirubin [Mass/Vol] 0.7 mg/dL Normal 0.0 - 1.1 mg/dL [facility] Calcium [Mass/Vol] 8.7 mg/dL Low 8.9 - 11.1 mg/dL [facility] Chloride [Moles/Vol] 89 mmol/L Low 101 - 111 mmol/ L [facility] Cholesterol [Mass/Vol] 139 mg/dL Normal 120 - 200 mg/dL [facility] Cholesterol in HDL [Mass/Vol] 61 mg/dL Invalid Interpretation Code [facility] Cholesterol in LDL [Mass/Vol] 61 mg/dL Normal <=129mg/dL [facility] Cholesterol in VLDL [Mass/Vol] 28 mg/dL Normal 7 - 40 mg/dL [facility] CO2 [Moles/Vol] 29 mmol/L Normal 21 - 31 mmol/L [facility] Creatinine [Mass/Vol] 0.7 mg/dL Normal 0.5 - 1.3 mg/dL [facility] GFR/1.73 sq M.predicted among blacks MDRD (S/P/Bld) [Vol rate/Area] mL/min/1.73 m2 Normal >=59mL/min/1.73 m2 [facility] Chem S GFR/1.73 sq M.predicted among non-blacks MDRD (S/P/Bld) [Vol rate/Area] mL/min/1.73 m2 Normal >=59mL/min/1.73 m2 [facility] Chem S Globulin (S) [Mass/Vol] 3.5 g/dL Normal 1.4 - 4.0 gm/dL [facility] Glucose [Mass/Vol] 80 mg/dL Normal 55 - 199 mg/dL [facility] Potassium [Moles/Vol] 3.3 mmol/L Low 3.5 - 5.3 mmol/L [facility] Protein [Mass/Vol] 7.6 g/dL Normal 6.0 - 7.8 gm/dL [facility] Remisol Sodium [Moles/Vol] 132 mmol/L Low 135 - 145 mmol/L [facility] Triglyceride [Mass/Vol] 139 mg/dL Normal <=149mg/dL [facility] TSH Qn 4.64 m[IU]/L Normal 0.34 - 5.60 mcIU/mL [facility] Urea nitrogen [Mass/Vol] 16 mg/dL Normal 5 - 21 mg/dL [facility] Urea nitrogen/Creatinine [Mass ratio] 23 mg/mg High 10 - 20 [facility] CHEMISTRYOrdered By: Hilario Leos on 08-20-2022 Albumin DL <= 20 mg/L (U) [Mass/Vol] 4.6 microgram/mL Normal 0.0 - 19.0 mcg/mL [facility] CHEMISTRYOrdered By: Alfredo wayne on 08-20-2022 HbA1c (Bld) [Mass fraction] 6.3 % High <=5.9% [facility] HEMATOLOGYOrdered By: Arlene Andrade on 08-20-2022 Erythrocyte distribution width (RBC) [Ratio] 16.6 % High 10.9 - 14.2 % [facility] Hematocrit (Bld) [Volume fraction] 42.3 % Normal 34.0 - 46.0 % [facility] Hemoglobin (Bld) [Mass/Vol] 13.7 g/dL Normal 12.0 - 16.0 gm/dL [facility] MCH (RBC) [Entitic mass] 30.6 pg Normal 27.0 - 34.0 pg [facility] MCHC (RBC) [Mass/Vol] 32.4 g/dL Normal 31.4 - 36.0 gm/dL [facility] MCV (RBC) [Entitic vol] 94.5 fL Normal 80.0 - 100.0 fL [facility] Platelet mean volume (Bld) [Entitic vol] 7.7 fL Normal 6.4 - 10.8 fL [facility] Platelets (Bld) [#/Vol] 203.0 E9/L Normal 150.0 - 500.0 E9/L [facility] RBC (Bld) [#/Vol] 4.5 E12/L Normal 4.3 - 5.9 E12/L [facility] WBC corrected for nucl RBC Auto (Bld) [#/Vol] 7.1 E9/L Normal 4.0 - 11.0 E9/L [facility] XR CHEST (2 VW)on 05-21-2021 Negative chest. [facility] RIS CONSOLIDATED EXAM: XR CHEST (2 VW ) HISTORY: R06.02 shortness of breath, obstructive sleep apnea. COMPARISON: Chest 09/06/2019 TECHNIQUE: 2 views chest FINDINGS: Heart size normal. Lungs clear. Bony thorax and upper abdomen normal. [facility] RIS CONSOLIDATED Casa Minor Jr., MD - 05/21/2021 EXAM: XR CHEST (2 VW) HISTORY: R06.02 shortness of breath, obstructive sleep apnea. COMPARISON: Chest 09/06/2019 TECHNIQUE: 2 views chest FINDINGS: Heart size normal. Lungs clear. Bony thorax and upper abdomen normal. IMPRESSION: Negative chest. Rep Phone: Radiology Study observation (narrative) Rep Phone: XR CHEST (2 VW)Ordered By: Chester Minor on 05-21-2021 Rep Phone: COVID-19on 03-17-2020 SARS-CoV-2, Rapid Not Detected Not Detected [place], [place] Comment on above: Rapid NAAT: The specimen is NEGATIVE for SARS-CoV-2, the novel coronavirus associated with COVID-19. The ID NOW COVID-19 assay is designed to detect the virus that causes COVID-19 in patients with signs and symptoms of infection who are suspected of COVID-19. An individual without symptoms of COVID-19 and who is not shedding SARS-CoV-2 virus would expect to have a negative (not detected) result in this assay. Negative results should be treated as presumptive and, if inconsistent with clinical signs and symptoms or necessary for patient management, should be tested with an alternative molecular assay. Negative results do not preclude SARS-CoV-2 infection and should not be used as the sole basis for patient management decisions. Fact sheet for Healthcare Providers: https://www.fda.gov/media/998180/download Fact sheet for Patients: https://www.fda.gov/media/903789/download Methodology: Isothermal Nucleic Acid Amplification Source .THROAT [place], [place] Otheron 03-17-2020 SARS-CoV-2 [place], [place] US PELVIS COMPLETEon 020 1. 8 cm intrauterine fibroid. 2. Likely vascular polyp in the cervix. [place], [place] EXAM: US PELVIS COMPLETE HISTORY: N85.2. Enlarged uterus on CT. COMPARISON: CT abdomen and pelvis 02/07/2020. TECHNIQUE: Transabdominal and transvaginal scan pelvis. FINDINGS: There is a 8 cm intramural uterine fibroid which obscures the endometrial stripe. A vascular polyp 1.2 x 0.5 x 0.3 cm is likely present in the cervix. Uterus: 11.7 cm longitudinal by 7.7 x 5.5 cm. Right ovary: 3.1 x 2.1 x 1.4 cm. Left ovary: 2.8 x 2.0 x 1.3 cm. [place], [place] Dre, pn Incoming Radiant Results From [facility] - 02/19/2020 4:19 PM EDT EXAM: US PELVIS COMPLETE HISTORY: N85.2. Enlarged uterus on CT. COMPARISON: CT abdomen and pelvis 02/07/2020. TECHNIQUE: Transabdominal and transvaginal scan pelvis. FINDINGS: There is a 8 cm intramural uterine fibroid which obscures the endometrial stripe. A vascular polyp 1.2 x 0.5 x 0.3 cm is likely present in the cervix. Uterus: 11.7 cm longitudinal by 7.7 x 5.5 cm. Right ovary: 3.1 x 2.1 x 1.4 cm. Left ovary: 2.8 x 2.0 x 1.3 cm. IMPRESSION: 1. 8 cm intrauterine fibroid. 2. Likely vascular polyp in the cervix. [place], [place] BUN & creatinineon 0 Creatinine [Mass/Vol] 0.81 mg/dL 0.5 - 0.9 mg/dL [place] GFR >60 >60 mL/min [place] GFR Non- >60 >60 mL/min [place] GFR/1.73 sq M predicted among non-blacks MDRD (S/P/Bld) [Vol rate/Area] [place] Comment on above: Average GFR for 50-5 9 years old: 93 mL/min/1.73sq m Chronic Kidney Disease: <60 mL/min/1.73sq m Kidney failure: <15 mL/min/1.73sq m eGFR calculated using average adult body mass. Additional eGFR calculator available at: http://www.[employer]imbix/multiple_crcl_2012.htm GFR/1.73 sq M predicted among non-blacks MDRD (S/P/Bld) [Vol rate/Area] NOT REPORTED [place], [place] Urea nitrogen [Mass/Vol] 15 mg/dL 6 - 20 mg/dL [place] CT ABDOMEN PELVIS W IV CONTR AST Additional Contrast? Oralon 02-07-2020 No acute process in the abdomen or pelvis. Enlarged, fatty liver. Prominent, bulky uterus, a nonspecific finding that may be related to underlying fibroids or adenomyosis. [place], [place] EXAMINATION: CT ABDOMEN PELVIS W IV CONTRAST HISTORY: Right lower quadrant pain and nausea COMPARISON: None. TECHNIQUE: CT examination of the abdomen and pelvis following the administration of 75 mL Isovue-370 intravenous contrast and 20 mL Omnipaque 240 oral contrast. Coronal and sagittal reformations were performed. Dose reduction techniques were achieved by using automated exposure control and/or adjustment of mA and/or kV according to patient size and/or use of iterative reconstruction technique. FINDINGS: The lung bases are clear. The liver is enlarged, measuring up to 22.6 cm in craniocaudal dimension, and demonstrates diffusely decreased attenuation, compatible with steatosis. No definite focal hepatic lesions. No biliary dilation. The spleen, pancreas, and adrenal glands appear unremarkable. The kidneys enhance symmetrically without evidence of focal lesion or hydronephrosis. No bowel wall thickening or dilation. The appendix is unremarkable. The urinary bladder appears unremarkable. The uterus is bulky and prominent in size. No adnexal mass. Atherosclerotic calcification of the normal caliber abdominal aorta and its branches. No lymphadenopathy, free fluid or free air. Chronic degenerative changes in the thoracolumbar spine. [place], [place] Dre, Mhpn Incoming Radiant Results From [employer] - 02/07/2020 3:09 PM EDT EXAMINATION: CT ABDOMEN PELVIS W IV CONTRAST HISTORY: Right lower quadrant pain and nausea COMPARISON: None. TECHNIQUE: CT examination of the abdomen and pelvis following the administration of 75 mL Isovue-370 intravenous contrast and 20 mL Omnipaque 240 oral contrast. Coronal and sagittal reformations were performed. Dose reduction techniques were achieved by using automated exposure control and/or adjustment of mA and/or kV according to patient size and/or use of iterative reconstruction technique. FINDINGS: The lung bases are clear. The liver is enlarged, measuring up to 22.6 cm in craniocaudal dimension, and demonstrates diffusely decreased attenuation, compatible with steatosis. No definite focal hepatic lesions. No biliary dilation. The spleen, pancreas, and adrenal glands appear unremarkable. The kidneys enhance symmetrically without evidence of focal lesion or hydronephrosis. No bowel wall thickening or dilation. The appendix is unremarkable. The urinary bladder appears unremarkable. The uterus is bulky and prominent in size. No adnexal mass. Atherosclerotic calcification of the normal caliber abdominal aorta and its branches. No lymphadenopathy, free fluid or free air. Chronic degenerative changes in the thoracolumbar spine. IMPRESSION: No acute process in the abdomen or pelvis. Enlarged, fatty liver. Prominent, bulky uterus, a nonspecific finding that may be related to underlying fibroids or adenomyosis. [place], [place] CBC Auto Differentialon Basophils (Bld) [#/Vol] 0.00 10*3/uL [place], [place] Basophils/100 WBC (Bld) 0 % 0 - 2 % [place], [place] Differential Type YES [place], [place] Eosinophils (Bld) [#/Vol] 0.10 10*3/uL [place] Eosinophils/100 WBC (Bld) 1 % 0 - 5 % [place] Erythrocyte distribution width (RBC) [Ratio] 15.7 % High 12.1 - 15.2 % [place] Hematocrit (Bld) [Volume fraction] 37.6 % 36 - 46 % [place] Hemoglobin (Bld) [Mass/Vol] 12.4 g/dL 12 - 16 g/dL [place] Interpretation and review of laboratory results Abnormal [place] Lymphocytes (Bld) [#/Vol] 1.40 10*3/uL [place], [place] Lymphocytes/100 WBC (Bld) 20 % 15 - 40 % [place] MCH (RBC) [Entitic mass] 29.0 pg 26 - 34 pg [place] MCHC (RBC) [Mass/Vol] 33.0 g/dL 31 - 37 g/dL [place] MCV (RBC) [Entitic vol] 87.9 fL 80 - 100 fL [place], [place] Monocytes (Bld) [#/Vol] 0.40 10*3/uL [place], [place] Monocytes/100 WBC (Bld) 6 % 4 - 8 % [place] Platelet mean volume (Bld) [Entitic vol] NOT REPORTED 6 - 12 fL [place] Platelets (Bld) [#/Vol] NOT REPORTED [place] Platelets (Bld) [#/Vol] 268 10*3/uL [place] RBC (Bld) [#/Vol] 4.28 10*6/uL 4 - 5.2 m/uL [place] RBC morphology finding Nom (Bld) NOT REPORTED [place] Segmented neutrophils/100 WBC (Bld) 73 % 47 - 75 % [place] Segs Absolute 5.10 [place] WBC (Bld) [#/Vol] 7.1 10*3/uL [place] WBC (Bld) [#/Vol] NOT REPORTED per 100 WBC [place] WBC Morphology NOT REPORTED [place] Comprehensive Metabolic Pane usman 09-06-2019 Albumin [Mass/Vol] 4.5 g/dL 3.5 - 5.2 g/dL [place] Albumin/Globulin [Mass ratio] NOT REPORTED [place] ALP [Catalytic activity/Vol] 92 U/L 35 - 104 U/L [place] ALT [Catalytic activity/Vol] 28 U/L 5 - 33 U/L [place] Anion gap [Moles/Vol] 13 mmol/L 9 - 17 mmol/L [place] AST [Catalytic activity/Vol] 19 U/L <32 [place], [place] Bilirubin Ql (U) 0.40 mg/dL 0.3 - 1.2 mg/dL [place] Bun/Cre Ratio 26 High [place] Calcium [Mass/Vol] 10.2 mg/dL 8.6 - 10.4 mg/dL [place] Chloride [Moles/Vol] 99 mmol/L 98 - 107 mmol/L [place] CO2 [Moles/Vol] 28 mmol/L 20 - 31 mmol/L [place] Creatinine [Mass/Vol] 0.86 mg/dL 0.5 - 0.9 mg/dL [place] GFR >60 >60 mL/min [place] GFR Non- >60 >60 mL/min [place] GFR/1.73 sq M predicted among non-blacks MDRD (S/P/Bld) [Vol rate/Area] NOT REPORTED [place] GFR/1.73 sq M predicted among non-blacks MDRD (S/P/Bld) [Vol rate/Area] [place] Comment on above: Average GFR for 50-5 9 years old: 93 mL/min/1.73sq m Chronic Kidney Disease: <60 mL/min/1.73sq m Kidney failure: <15 mL/min/1.73sq m eGFR calculated using average adult body mass. Additional eGFR calculator available at: http://www.globalrph.com/multiple_crcl_2012.htm Glucose [Mass/Vol] 121 mg/dL High 70 - 99 mg/dL [place] Potassium [Moles/Vol] 4.6 mmol/L 3.7 - 5.3 mmol/L [place] Protein [Mass/Vol] 7.7 g/dL 6.4 - 8.3 g/dL [place] Sodium [Moles/Vol] 140 mmol/L 135 - 144 mmol/L [place] Urea nitrogen [Mass/Vol] 22 mg/dL High 6 - 20 mg/dL [place] Hemoglobin A1Con 09-06-2019 Glucose [Mass/Vol] 128 mg/dL [place], [place] Comment on above: The ADA and AACC rec ommend providing the estimated average glucose result to permit better patient understanding of their HBA1c result. HbA1c (Bld) [Mass fraction] 6.1 % High 4.8 - 5.9 % [place] Interpretation and review of laboratory results Abnormal [place] Lipid Panelon 09-06-2019 Cholesterol [Mass/Vol] 166 mg/dL <200 [place], [place] Comment on above: Cholesterol Guidelines: <200 Desirable 200-240 Borderline >240 Undesirable Cholesterol in HDL [Mass/Vol] 39 mg/dL Low >40 [place] Comment on above: HDL Guidelines: <40 Undesirable 40-59 Borderline >59 Desirable Cholesterol in LDL [Mass/Vol] 71 mg/dL 0 - 130 mg/dL [place] Comment on above: LDL Guidelines: <100 Desirable 100-129 Near to/above Desirable 130-159 Borderline >159 Undesirable Direct (measured) LDL and calculated LDL are not interchangeable tests. Cholesterol in VLDL [Mass/Vol] NOT REPORTED High 1 - 30 mg/dL [place] Cholesterol.total/Ch olesterol in HDL [Mass ratio] 4.3 {ratio} <5 [place] Triglyceride [Mass/Vol] 280 mg/dL High <150 [place] Comment on above: Triglyceride Guidelines: <150 Desirable 150-199 Borderline 200-499 High >499 Very high Based on AHA Guidelines for fasting triglyceride, April 2012. Magnesiumon 09-06-2019 Magnesium [Mass/Vol] 1.9 mg/dL 1.6 - 2.6 mg/dL [facility]2019 Interpretation and review of laboratory results Abnormal [facility] CT Immature granulocytes (Bld) [#/Vol] NOT REPORTED 0 % [place] Patient Fasting?on 0 Patient Fasting? yes Irais [facility] CT TSH with Reflexon 09-06-2019 TSH Qn 2.01 m[IU]/L [place] Vitamin D 25 Hydroxyon 09-05 Interpretation and review of laboratory results Abnormal [place], [place] Vit D, 25-Hydroxy 29.5 ng/mL Low 30 - 100 ng/mL [facility] CT Comment on above: Reference Range: Vitamin D status Range Deficiency <20 ng/mL Mild Deficiency 20-30 ng/mL Sufficiency 30-100 ng/mL Toxicity >100 ng/mL XR CHEST STANDARD (2 VW)on 0 09-06-2019 No evidence of acute disease in the chest or change from 02/23/2018. [place] CHEST, TWO VIEWS, 09/06/2019: CLINICAL HISTORY: Shortness of breath for 2-3 months. TECHNIQUE: A PA view and two lateral views of the chest. COMPARISON: 02/23/2018. FINDINGS: Cardiac size is upper range of normal and unchanged. Pulmonary vascularity is normal. There is a small band of scar in the right mid-lower lung zone, unchanged. The lungs are otherwise clear. The costophrenic angles are sharp. There is mild chronic decrease in height of multiple consecutive mid and lower thoracic vertebral bodies with mild-moderate changes of degenerative disc disease throughout this region of the thoracic spine, unchanged. There is mild atherosclerotic calcification and tortuosity of the thoracic aorta. [place] Dre, Mhpn Incoming Radiant Results From [facility] - 09/06/2019 10:11 PM EST CHEST, TWO VIEWS, 09/06/2019: CLINICAL HISTORY: Shortness of breath for 2-3 months. TECHNIQUE: A PA view and two lateral views of the chest. COMPARISON: 02/23/2018. FINDINGS: Cardiac size is upper range of normal and unchanged. Pulmonary vascularity is normal. There is a small band of scar in the right mid-lower lung zone, unchanged. The lungs are otherwise clear. The costophrenic angles are sharp. There is mild chronic decrease in height of multiple consecutive mid and lower thoracic vertebral bodies with mild-moderate changes of degenerative disc disease throughout this region of the thoracic spine, unchanged. There is mild atherosclerotic calcification and tortuosity of the thoracic aorta. IMPRESSION: No evidence of acute disease in the chest or change from 02/23/2018. [place] Vital Signs Date Time Vital Sign Value Performing Clinician Joaquín rolle 12-23-2023 13:25-0400 Diastolic blood pressure 84 mm[Hg] Cardoso Sarmini [facility] 12-23-2023 13:25-0400 Heart rate 78 /min Cardoso Sarmini [facility] 12-23-2023 13:25-0400 Mean blood pressure 111 mm[Hg] Cardoso Sarmini [facility] 12-23-2023 13:25-0400 Respiratory rate 24 /min Cardoso Sarmini [facility] 12-23-2023 13:25-0400 SaO2% (BldA) [Mass fraction] 98 % Cardoso Sarmini [facility] 12-23-2023 13:25-0400 Systolic blood pressure 166 mm[Hg] Cardoso Sarmini [facility] 12-23-2023 13:15-0400 Diastolic blood pressure 89 mm[Hg] Cardoso Sarmini [facility] [place] 12-23-2023 13:15-0400 Heart rate 69 /min Cardoso Sarmini [facility] 12-23-2023 13:15-0400 Mean blood pressure 111 mm[Hg] Cardoso Sarmini [facility] 12-23-2023 13:15-0400 Respiratory rate 17 /min Cardoso Sarmini [facility] 12-23-2023 13:15-0400 SaO2% (BldA) [Mass fraction] 99 % Cardoso Sarmini [facility] 12-23-2023 13:15-0400 Systolic blood pressure 155 mm[Hg] Cardoso Sarmini [facility] 12-23-2023 13:10-0400 Diastolic blood pressure 95 mm[Hg] Cardoso Sarmini [facility] 12-23-2023 13:10-0400 Heart rate 85 /min Cardoso Sarmini [facility] 12-23-2023 13:10-0400 Mean blood pressure 110 mm[Hg] Cardoso Sarmini [facility] 12-23-2023 13:10-0400 Respiratory rate 15 /min Cardoso Sarmini [facility] 12-23-2023 13:10-0400 SaO2% (BldA) [Mass fraction] 99 % Cardoso Sarmini [facility] 12-23-2023 13:10-0400 Systolic blood pressure 141 mm[Hg] Cardoso Sarmini [facility] 12-23-2023 13:00-0400 Body temperature 97.7 [degF] Cardoso Sarmini [facility] 12-23-2023 10:45-0400 Blood Pressure Location Cardoso Sarmini [facility] 12-23-2023 10:45-0400 Body temperature 97.88 [degF] Walker Phillip [facility] [place] 12-06-2023 14:51-0400 Blood Pressure Location Alirio Ramirez [facility] [place] 12-06-2023 14:51-0400 Diastolic blood pressure 80 mm[Hg] Alirio Ramirez [facility] 12-06-2023 14:51-0400 Heart rate 86 /min Alirio Ramirez [facility] 12-06-2023 14:51-0400 SaO2% (BldA) [Mass fraction] 94 % Alirio Ramirez [facility] 12-06-2023 14:51-0400 Systolic blood pressure 124 mm[Hg] Alirio Ramirez [facility] 11-25-2023 14:30-0400 Blood Pressure Location Myron Rebolledoant [facility] 11-25-2023 14:30-0400 Body temperature 96.8 [degF] Myron Yocasta [facility] 11-25-2023 14:30-0400 Diastolic blood pressure 80 mm[Hg] Myron Yocasta [facility] 11-25-2023 14:30-0400 Heart rate 89 /min Myron Yocasta [facility] 11-25-2023 14:30-0400 Respiratory rate 22 /min Myron Yocasta [facility] 11-25-2023 14:30-0400 SaO2% (BldA) [Mass fraction] 98 % Myron Yocasta [facility] 11-25-2023 14:30-0400 Systolic blood pressure 138 mm[Hg] Myron Yocasta [facility] 11-02-2023 10:06-0400 Blood Pressure Location Cardoso Sarmini [facility] 11-02-2023 10:06-0400 Diastolic blood pressure 60 mm[Hg] Cardoso Sarmini [facility] 11-02-2023 10:06-0400 Heart rate 78 /min Cardoso Sarmini [facility] 11-02-2023 10:06-0400 Respiratory rate 18 /min Cardoso Sarmini [facility] 11-02-2023 10:06-0400 Systolic blood pressure 118 mm[Hg] Cardoso Sarmini [facility] 10-26-2023 13:12-0400 Blood Pressure Location Myron Yocasta [facility] 10-26-2023 13:12-0400 Diastolic blood pressure 78 mm[Hg] Myron Yocasta [facility] 10-26-2023 13:12-0400 Heart rate 77 /min Myron Yocasta [facility] 10-26-2023 13:12-0400 Respiratory rate 16 /min Myron Yocasta [facility] 10-26-2023 13:12-0400 SaO2% (BldA) [Mass fraction] 99 % Myron Yocasta [facility] 10-26-2023 13:12-0400 Systolic blood pressure 122 mm[Hg] Myron Yocasta [facility] 10-25-2023 14:56-0400 Blood Pressure Location Alirio Ramirez [facility] [place] 10-25-2023 14:56-0400 Diastolic blood pressure 76 mm[Hg] Alirio Ramirez [facility] 10-25-2023 14:56-0400 Heart rate 96 /min Alirio Ramirez [facility] 10-25-2023 14:56-0400 SaO2% (BldA) [Mass fraction] 67 % Alirio Ramirez [facility] [place] 10-25-2023 14:56-0400 Systolic blood pressure 128 mm[Hg] Alirio Ramirez [facility] 10-11-2023 17:33-0400 Diastolic blood pressure 90 mm[Hg] Myron Yocasta [facility] 10-11-2023 17:33-0400 Mean blood pressure 107 mm[Hg] Myron Yocasta [facility] 10-11-2023 17:33-0400 Systolic blood pressure 142 mm[Hg] Myron Yocasta [facility] 10-11-2023 14:21-0400 Blood Pressure Location Myron Yocasta [facility] 10-11-2023 14:21-0400 Body temperature 98.6 [degF] Myron Yocasta [facility] 10-11-2023 14:21-0400 Diastolic blood pressure 90 mm[Hg] Myron Yocasta [facility] 10-11-2023 14:21-0400 Heart rate 65 /min Myron Yocasta [facility] 10-11-2023 14:21-0400 Respiratory rate 20 /min Myron Yocasta [facility] 10-11-2023 14:21-0400 SaO2% (BldA) [Mass fraction] 95 % Myron Yocasta [facility] 10-11-2023 14:21-0400 Systolic blood pressure 144 mm[Hg] Myron Yocasta [facility] 08-10-2023 14:19-0500 Blood Pressure Location Myron Yocasta [facility] 08-10-2023 14:19-0500 Body temperature 97.88 [degF] Myron Yocasta [facility] 08-10-2023 14:19-0500 Diastolic blood pressure 70 mm[Hg] Myron Yocasta [facility] 08-10-2023 14:19-0500 Heart rate 90 /min Myron Yocasta [facility] 08-10-2023 14:19-0500 Respiratory rate 20 /min Myron Yocasta [facility] 08-10-2023 14:19-0500 SaO2% (BldA) [Mass fraction] 95 % Myron Yocasta [facility] 08-10-2023 14:19-0500 Systolic blood pressure 124 mm[Hg] Myron Yocasta [facility] 05-09-2023 08:04-0500 Blood Pressure Location Ansley Carrero [facility] 05-09-2023 08:04-0500 Body temperature 98.24 [degF] Ansley Carrero [facility] 05-09-2023 08:04-0500 Diastolic blood pressure 74 mm[Hg] Ansley Carrero [facility] 05-09-2023 08:04-0500 Heart rate 77 /min Ansley Carrero [facility] 05-09-2023 08:04-0500 Respiratory rate 18 /min Ansley Carrero [facility] 05-09-2023 08:04-0500 SaO2% (BldA) [Mass fraction] 96 % Ansley Carrero [facility] 05-09-2023 08:04-0500 Systolic blood pressure 120 mm[Hg] Ansley Carrero [facility] 04-26-2023 10:59-0400 Blood Pressure Location Myron Yocasta [facility] 04-26-2023 10:59-0400 Body temperature 98.6 [degF] Myron Yocasta [facility] 04-26-2023 10:59-0400 Diastolic blood pressure 70 mm[Hg] Myron Yocasta [facility] 04-26-2023 10:59-0400 Heart rate 78 /min Myron Yocasta [facility] 04-26-2023 10:59-0400 Respiratory rate 18 /min Myron Yocasta [facility] 04-26-2023 10:59-0400 SaO2% (BldA) [Mass fraction] 98 % Myron Yocasta [facility] 04-26-2023 10:59-0400 Systolic blood pressure 128 mm[Hg] Myron Yocasta [facility] 03-18-2023 11:51-0400 Blood Pressure Location Myron Yocasta [facility] 03-18-2023 11:51-0400 Body temperature 97.7 [degF] Myron Yocasta [facility] 03-18-2023 11:51-0400 Diastolic blood pressure 64 mm[Hg] Myron Yocasta [facility] 03-18-2023 11:51-0400 Heart rate 78 /min Myron Yocasta [facility] 03-18-2023 11:51-0400 Respiratory rate 16 /min Myron Yocasta [facility] 03-18-2023 11:51-0400 SaO2% (BldA) [Mass fraction] 94 % Myron Yocasta [facility] 03-18-2023 11:51-0400 Systolic blood pressure 122 mm[Hg] Myron Yocasta [facility] 10-15-2022 05:30-0400 Diastolic blood pressure 75 mm[Hg] Demetra Cruz MD [facility]: [facility] 10-15-2022 05:30-0400 Heart rate 98 /min Demetra Cruz MD Work [facility] 10-15-2022 05:30-0400 Respiratory rate 21 /min Demetra Cruz MD Work Phone: [employer] 10-15-2022 05:30-0400 Systolic blood pressure 119 mm[Hg] Demetra Cruz MD Work Phone: [employer] 10-15-2022 05:15-0400 SaO2% (BldA) [Mass fraction] 89 % Demetra Cruz MD Work Phone: [employer] 10-14-2022 21:50-0400 Body height 170.2 cm Demetra Cruz MD Work Phone: [employer] 10-14-2022 21:50-0400 Body mass index (BMI) [Ratio] 51.22 kg/m2 Demetra Cruz MD Work Phone: [employer] 10-14-2022 21:50-0400 Body temperature 98.1 [degF] Demetra Cruz MD Work Phone: [employer] 10-14-2022 21:50-0400 Body weight 148.33 kg Demetra Cruz MD Work Phone: [employer] 10-13-2022 08:55-0400 Blood Pressure Location Carmen Haley [facility] [place] 10-13-2022 08:55-0400 Diastolic blood pressure 76 mm[Hg] Carmen Haley [facility] [place] 10-13-2022 08:55-0400 Heart rate 79 /min Carmen Haley [facility] [place] 10-13-2022 08:55-0400 SaO2% (BldA) [Mass fraction] 93 % Carmen Haley [facility] [place] 10-13-2022 08:55-0400 Systolic blood pressure 128 mm[Hg] Carmen Haley [facility] [place] 09-29-2022 11:33-0400 Blood Pressure Location Carmen Haley [facility] 09-29-2022 11:33-0400 Diastolic blood pressure 72 mm[Hg] Carmen Haley [facility] 09-29-2022 11:33-0400 Heart rate 90 /min Carmen Haley [facility] 09-29-2022 11:33-0400 SaO2% (BldA) [Mass fraction] 93 % Carmen Haley [facility] [place] 09-29-2022 11:33-0400 Systolic blood pressure 128 mm[Hg] Carmen Haley [facility] [place] 09-24-2022 14:40-0400 Blood Pressure Location Lupis Qoture [facility] 09-24-2022 14:40-0400 Body temperature 97.16 [degF] Lupis Qoture [facility] 09-24-2022 14:40-0400 Diastolic blood pressure 82 mm[Hg] Lupis BROWN [facility] 09-24-2022 14:40-0400 Heart rate 83 /min Lupis BROWN [facility] 09-24-2022 14:40-0400 Respiratory rate 24 /min Lupis BROWN [facility] 09-24-2022 14:40-0400 SaO2% (BldA) [Mass fraction] 92 % Lupis BROWN [facility] 09-24-2022 14:40-0400 Systolic blood pressure 106 mm[Hg] Lupis BROWN [facility] 09-22-2022 08:08-0400 Blood Pressure Location Carmen Haley [facility] [place] 09-22-2022 08:08-0400 Diastolic blood pressure 78 mm[Hg] Carmen Marksa [facility] 09-22-2022 08:08-0400 Heart rate 72 /min Carmen Haley [facility] 09-22-2022 08:08-0400 SaO2% (BldA) [Mass fraction] 94 % Carmenkeisha Haley [facility] [place] 09-22-2022 08:08-0400 Systolic blood pressure 136 mm[Hg] Carmen Marksa [facility] [place] 09-14-2022 11:55-0400 Heart rate 79 /min DO Joo Rachel Work Phone: [facility] 09-14-2022 11:55-0400 Respiratory rate 20 /min DO Joo Rachel Work Phone: [facility] 09-14-2022 08:41-0400 SaO2% (BldA) [Mass fraction] 95 % DO Joo Rachel Work Phone: [facility] 09-14-2022 07:36-0400 Diastolic blood pressure 85 mm[Hg] DO Joo Rachel Work Phone: [facility] 09-14-2022 07:36-0400 Systolic blood pressure 134 mm[Hg] DO Joo Rachel Work Phone: [facility] 09-14-2022 05:21-0400 Body weight 153.9 kg DO Joo Rachel Work Phone: [facility] 09-14-2022 03:46-0400 Body temperature 98.1 [degF] DO Joo Rachel Work Phone: [facility] 09-13-2022 15:35-0400 Body height 160.02 cm DO Joo Rachel Work Phone: [facility] 09-11-2022 20:33-0500 Inhaled oxygen flow rate 2 L/min DO Joo Rachel Work Phone: [facility] 09-10-2022 14:03-0500 Diastolic blood pressure 57 mm[Hg] [facility] 09-10-2022 14:03-0500 Heart rate 86 /min [facility] 09-10-2022 14:03-0500 Inhaled oxygen flow rate 2 L/min [facility] 09-10-2022 14:03-0500 Respiratory rate 20 /min [facility] 09-10-2022 14:03-0500 SaO2% (BldA) [Mass fraction] 98 % [facility] 09-10-2022 14:03-0500 Systolic blood pressure 117 mm[Hg] [facility] 09-10-2022 11:11-0500 Body height 160.[address] [facility] 09-10-2022 11:11-0500 Body temperature 97.6 [degF] [facility] 09-10-2022 11:11-0500 Body weight [address] [facility] 09-06-2022 11:23-0500 Blood Pressure Location Lupis Qoture [facility] 09-06-2022 11:23-0500 Body temperature 97.16 [degF] Lupis Qoture [facility] 09-06-2022 11:23-0500 Diastolic blood pressure 80 mm[Hg] Lupis Qoture [facility] 09-06-2022 11:23-0500 Heart rate 83 /min Lupis Qoture [facility] 09-06-2022 11:23-0500 Respiratory rate 28 /min Lupis Qoture [facility] 09-06-2022 11:23-0500 SaO2% (BldA) [Mass fraction] 94 % Lupis Qoture [facility] 09-06-2022 11:23-0500 Systolic blood pressure 138 mm[Hg] Lupis Qoture [facility] 08-20-2022 15:03-0500 Diastolic blood pressure 86 mm[Hg] Lupis Qoture [facility] 08-20-2022 15:03-0500 Mean blood pressure 114 mm[Hg] Lupis Qoture [facility] 08-20-2022 15:03-0500 Systolic blood pressure 170 mm[Hg] Lupis Qoture [facility] 08-20-2022 13:59-0500 Blood Pressure Location Lupis Qoture [facility] 08-20-2022 13:59-0500 Body temperature 96.98 [degF] Lupis Qoture [facility] 08-20-2022 13:59-0500 Diastolic blood pressure 102 mm[Hg] Lupis Qoture [facility] 08-20-2022 13:59-0500 Heart rate 77 /min Lupis Qoture [facility] 08-20-2022 13:59-0500 Respiratory rate 28 /min Lupis Qoture [facility] 08-20-2022 13:59-0500 SaO2% (BldA) [Mass fraction] 97 % Lupis Qoture [facility] 08-20-2022 13:59-0500 Systolic blood pressure 178 mm[Hg] Lupis SCHWARTZ [facility] 12-30-2021 11:01-0400 Blood Pressure Location Parish RUBIO [facility] 12-30-2021 11:01-0400 Body temperature 98.42 [degF] Parish RUBIO [facility] 12-30-2021 11:01-0400 Diastolic blood pressure 90 mm[Hg] Parish RUBIO [facility] 12-30-2021 11:01-0400 Heart rate 73 /min Parish RUBIO [facility] 12-30-2021 11:01-0400 SaO2% (BldA) [Mass fraction] 96 % Parish RUBIO [facility] 12-30-2021 11:01-0400 Systolic blood pressure 124 mm[Hg] Parish RUBIO [facility] 07-09-2021 08:54-0500 Body height 167.6 cm [employer] Work Phone: [employer] 07-09-2021 08:54-0500 Body mass index (BMI) [Ratio] 55.17 kg/m2 [employer] Work Phone: [employer] 07-09-2021 08:54-0500 Body weight 155.04 kg [employer] Work Phone: [employer] 07-02-2021 09:46-0500 Body height 167.6 cm [employer] Work Phone: [employer] 07-02-2021 09:46-0500 Body mass index (BMI) [Ratio] 56.27 kg/m2 [employer] Work Phone: [employer] 07-02-2021 09:46-0500 Body weight 158.12 kg [employer] Work Phone: [employer] 03-17-2020 12:10-0400 BP Diastolic 84 mm[Hg] [employer] [place] 03-17-2020 12:10-0400 BP Systolic 133 mm[Hg] [employer] [facility] [place] 03-17-2020 12:10-0400 Pulse (Heart Rate) 62 /min [facility] [employer] [facility] [place] 03-17-2020 12:10-0400 Pulse Oximetry 99 % [facility] [employer] [facility] [place] 03-17-2020 12:10-0400 Respiratory Rate 18 /min [employer] [place], [place] 03-17-2020 11:39-0400 Body Temperature 98.4 [degF] [employer] [facility], [place] 03-17-2020 08:43-0400 BMI (Body Mass Index) 51.84 kg/m2 [employer] [facility] [place] 03-17-2020 08:43-0400 Body weight 150.14 kg [employer] [facility] [place] 03-17-2020 08:43-0400 Height 170.2 cm [employer] [facility] [place] 09-07-2019 13:09-0500 Pulse [facility]ximetry 97 % [facility] [place] [facility] [place] Encounters Encounter Date Encounter Type Care Provider Facility Start: 01-27-2024 End: 01-27-2024 ambulatory Walker Phillip Facility:[facility] Start: 01-27-2024 End: 01-27-2024 Patient encounter procedure Walker Phillip [facility] Start: 12-23-2023 End: 12-23-2023 ambulatory Cardoso Talal Derekmini [facility] Start: 12-23-2023 End: 12-23-2023 Patient encounter procedure Cardoso Talal Derekmini [facility] [place] Start: 12-19-2023 End: 12-21-2023 ambulatory KAMALJIT Chavez [facility] Start: 12-06-2023 End: 12-06-2023 ambulatory XXXX NONE Facility[facility] Start: 12-06-2023 End: 12-06-2023 Patient encounter procedure Alirio Ramirez [facility] [place] Start: 11-25-2023 End: 11-25-2023 ambulatory LUIS, CREDIT COLLECTIONS CLERK-UPPER MARKER Myron Rust Facility:[facility] Start: 11-25-2023 End: 11-25-2023 Patient encounter procedure Myron Rust [facility] Start: 11-17-2023 End: 11-17-20[facility]: 11-10-2023 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, CREDIT COLLECTIONS CLERK-UPPER MARKER Myron Rust Facility:[facility] Start: 11-08-2023 End: 11-08-2023 ambulatory Alirio Ramirez Facility:[facility] Start: 11-08-2023 End: 11-08-2023 Patient encounter procedure Alirio Ramirez [facility] Start: 11-02-2023 End: 11-02-2023 ambulatory Cardoso Talal Derekmini Facility:[facility] Start: 11-02-2023 End: 11-02-2023 Patient encounter procedure Cardoso Talal Derekmini [facility] Start: 10-26-2023 End: 10-26-2023 ambulatory LUIS, CREDIT COLLECTIONS CLERK-UPPER MARKER Myron Rust Facility:[facility] Start: 10-26-2023 End: 10-26-2023 [facility] Start: 10-25-2023 End: 10-25-2023 ambulatory Alirio Ramirez Facility:[facility] Start: 10-25-2023 End: 10-25-2023 Patient encounter procedure Alirio Ramirez [facility] [place] Start: 10-11-2023 End: 10-11-2023 ambulatory LUIS, CREDIT COLLECTIONS CLERK-UPPER MARKER Myron Rust Facility:[facility] Start: 10-11-2023 End: 10-11-2023 [facility] Start: 10-06-2023 End: 10-06-2023 Emergency department patient visit [facility] Start: 08-30-2023 End: 09-01-2023 ambulatory KAMALJIT Chavez [facility] Start: 08-29-2023 ambulatory Scott Yanes lity:[facility] Start: 08-24-2023 End: 08-27-2023 ambulatory [facility] Start: 08-10-2023 End: 08-12-2023 ambulatory [facility] Start: 08-10-2023 End: 08-12-2023 Subsequent hospital visit by physician Krysten Additional Xray At [facility] Comment on above: Right hip pain Start: 08-10-2023 End: 08-10-2023 ambulatory LUIS, CREDIT COLLECTIONS CLERK-UPPER MARKER Myron Rust Facility:[facility] Start: 08-10-2023 End: 08-10-2023 Patient encounter procedure Myron Rust [facility] Start: 07-21-2023 End: 07-21-2023 Subsequent hospital visit by physician Arlene Dickens [facility] Start: 07-20-2023 End: 07-20-2023 Subsequent hospital visit by physician Monico Sheppard PTA [facility] Start: 07-14-2023 End: 07-14-2023 Subsequent hospital visit by physician Arlene Dickens [facility] Start: 07-11-2023 End: 07-11-2023 ambulatory [facility] Start: 07-08-2023 End: 07-08-2023 Subsequent hospital visit by physician Arlene Dickens [facility] Start: 07-07-2023 End: 07-07-2023 [facility] Start: 07-06-2023 End: 07-06-2023 Subsequent hospital visit by physician Arlene Dickens [facility] Start: 07-06-2023 [facility] Start: 06-21-2023 End: 06-21-2023 [facility] Start: 05-10-2023 End: 06-14-2023 Pre-admission assessment Justyna Grijalva [facility] Start: 05-09-2023 End: 05-09-2023 ambulatory Ansley Carrero Facility:[facility] Start: 05-09-2023 End: 05-09-2023 Patient encounter procedure Ansley Carrero [facility] Start: 04-29-2023 End: 04-29-2023 Emergency department patient visit [facility] Start: 04-26-2023 End: 04-26-2023 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, CREDIT COLLECTIONS CLERK-UPPER MARKER Myron Rust Facility:[facility] Start: 04-26-2023 End: 04-26-2023 Patient encounter procedure Myron Rust [facility] Start: 03-18-2023 End: 03-18-2023 ambulatory DARLEEN SMITH-UPPER MARKER Myron Joy Yocasta Facility:[facility] Start: 03-18-2023 End: 03-18-2023 [facility] Start: 12-01-2022 End: 12-03-2022 [facility] Comment on above: Fatigue, unspecified type; Screening, lipid Start: 11-26-2022 End: 11-26-2022 Patient encounter procedure Myron Rust [facility] Start: 10-19-2022 ambulatory Facility:[id number] Start: 10-19-2022 End: 01-18-2023 Recurring Carmen Haley [facility] Start: 10-19-2022 End: 10-21-2022 Subsequent hospital visit by physician Paul Additional Xray At [facility] Radiology Comment on above: Left hand weakness Weakness of both leg s Start: 10-14-2022 End: 10-15-2022 Emergency department patient visit Demetra Cruz MD Work Phone: [facility] ED Comment on above: Alcohol abuse (Prima ry Dx) Start: 10-13-2022 End: 10-13-2022 Subsequent hospital visit by physician Mulu Dean CREDIT COLLECTIONS CLERK - UPPER MARKER Work Phone: [facility] Laboratory Start: 10-13-2022 End: 10-14-2022 Pre-admission assessment Carmen Haley [facility] Start: 10-06-2022 End: 10-06-2022 Lab Drop off Lupis Chavez EFREN [facility] Start: 10-06-2022 End: 10-06-2022 Patient encounter procedure Lupis Chavez EFREN [facility] Start: 09-29-2022 End: 09-29-2022 Lab Drop off Carmen Kandy Sudha [facility] Start: 09-29-2022 End: 09-30-2022 Pre-admission assessment Carmen Gaitan Jerrivickkasey [facility] Start: 09-27-2022 End: 09-27-2022 Lab Drop off Myron Rust [facility] Start: 09-27-2022 End: 09-27-2022 Patient encounter procedure Myron Rust [facility] Start: 09-24-2022 End: 09-24-2022 Patient encounter procedure Lupis SCHWARTZ [facility] Start: 09-22-2022 End: 09-22-2022 Patient encounter procedure Carmen Gaitan Jerrivickkasey [facility] Start: 09-13-2022 ambulatory Facility:U Start: 09-10-2022 End: 09-14-2022 Evaluation and management of inpatient Marilyn Sun Facility:[facility] Start: 09-10-2022 ambulatory Facility:[id number] Start: 09-10-2022 End: 09-14-2022 Evaluation and management of inpatient [facility] Work Phone: Start: 09-06-2022 End: 09-06-2022 Lab Drop off Lupis Chavez EFREN [facility] Start: 09-06-2022 End: 09-06-2022 Patient encounter procedure Lupis Chavez EFREN [facility] Start: 08-27-2022 End: 08-27-2022 Subsequent hospital visit by physician [facility] Echo Room [facility] ECHO Comment on above: Hypertension, unspec ified type; Bilateral leg edema Start: 08-20-2022 End: 08-20-2022 Lab Drop off Lupis Chavez EFREN [facility] [place] Start: 08-20-2022 End: 08-20-2022 Patient encounter procedure Lupis SCHWARTZ [facility] [place] Start: 12-30-2021 End: 12-30-2021 Patient encounter procedure Parish RUBIO [facility] [place] Start: 07-13-2021 End: 07-13-2021 Subsequent hospital visit by physician CAITLYN Gardner RD Work Phone: [facility] Diet and Nutrition Comment on above: Arrived Start: 07-09-2021 End: 07-09-2021 Subsequent hospital visit by physician [facility] Diabetes Education Work Phone: [facility] Diabetic Education Start: 07-02-2021 End: 07-02-2021 Subsequent hospital visit by physician [facility] Diabetes Education Work Phone: [place] Diabetic Education Start: 05-21-2021 End: 05-23-2021 Subsequent hospital visit by physician [facility] Additional Xray At [facility] Radiology Comment on above: SOB (shortness of br eath); Obstructive sleep apnea (adult) (pediatric); Moderate persistent asthma without complication Start: 05-21-2021 End: 05-23-2021 Subsequent hospital visit by physician [facility] Pulmonary Function formerly [facility] PFT Comment on above: SOB (shortness of br eath); Obstructive sleep apnea syndrome; Moderate persistent asthma without complication; Tobacco abuse Start: 03-17-2020 End: 03-17-2020 Subsequent hospital visit by physician Glenn Malik Work Phone: [facility] Start: 03-17-2020 End: 03-17-2020 Subsequent hospital visit by physician [facility] Covid19 Pat Screening Schedule [facility] PRE ADMIT Comment on above: Arrived Start: 02-19-2020 End: 02-21-2020 Subsequent hospital visit by physician [facility] Ultrasound Room [facility] Ultrasound Comment on above: Hypertrophy of uteru s; Right lower quadrant pain Start: 02-07-2020 End: 02-09-2020 Subsequent hospital visit by physician [facility] Cat Scan Room [facility] CT Scan Comment on above: RLQ abdominal pain Start: 09-07-2019 End: 09-07-2019 Subsequent hospital visit by physician [facility] Pulmonary Function formerly [facility] PFT Comment on above: SOB (shortness of br eath) Start: 09-06-2019 End: 09-08-2019 Subsequent hospital visit by physician [facility] Dig Rad 1 [facility] Laboratory Comment on above: Syncope and collapse ; Pre-operative clearance; Essential hypertension; Hyperlipidemia, unspecified hyperlipidemia type; Vitamin D deficiency; SOB (shortness of breath); Elevated blood sugar Syncope and collapse ; Pre-operative clearance; Essential hypertension; Hyperlipidemia, unspecified hyperlipidemia type; Vitamin D deficiency Procedures Date Procedure Procedure Detail Performing Clinician Start: 12-23-2023 Colonoscopic polypectomy Walker Phillip Start: 08-10-2023 Radex hip unilateral with pelvis 2-3 views Myron Rust CREDIT COLLECTIONS CLERK - UPPER MARKER Work Phone: Start: 08-10-2023 Comprehensive metabo lic panel Myron Rust CREDIT COLLECTIONS CLERK - UPPER MARKER Work Phone: Start: 08-10-2023 Lipid panel Myron Fair nt CREDIT COLLECTIONS CLERK - UPPER MARKER Work Phone: Start: 08-10-2023 Urine albumin quantitative Myron Rust CREDIT COLLECTIONS CLERK - UPPER MARKER Work Phone: Start: 12-01-2022 Dup-scan xtr veins complete bilateral study Carmen Haley DO Work Phone: Start: 10-19-2022 End: 10-19-2022 Radex spine cervical 4 or 5 views Lupis Schwartz MD Work Phone: Start: 10-15-2022 Gluc bld gluc mntr d ev cleared fda spec home use Demetra Cruz MD Work Phone: Start: 10-15-2022 Gluc bld gluc mntr d ev cleared fda spec home use Demetra Cruz MD Work Phone: Start: 10-14-2022 Radiologic exam ches t single view Demetra Cruz MD Work Phone: Start: 10-14-2022 Assay of ethanol Demetra Cruz MD Work Phone: Start: 10-14-2022 Comprehensive metabo lic panel Demetra Cruz MD Work Phone: Start: 10-14-2022 Ecg routine ecg w/le ast 12 lds w/i&r Demetra Cruz MD Work Phone: Start: 10-13-2022 Creatine kinase total K althea Dean CREDIT COLLECTIONS CLERK - UPPER MARKER Work Phone: Start: 09-10-2022 Respiratory Panel (PCR) DO Joo Ramos Work Phone: Start: 09-10-2022 Plain chest X-ray Start: 05-21-2021 Radiologic exam ches t 2 views Mulu Duganjose CREDIT COLLECTIONS CLERK - UPPER MARKER Work Phone: Start: 03-17-2020 Nebulizer therapy Glenn Tracy Malik Work Phone: Start: 03-17-2020 COVID-19 Cameron Jau regui Work Phone: Start: 03-17-2020 Colonoscopy [facility] Jessie briggs Start: 03-17-2020 Colonoscopy Lupis HEART Rosa Start: 02-19-2020 Us pelvic nonobstetr ic real-time image complete Mulu Dean Work Phone: Start: 02-07-2020 Ct abdomen & pelvis w/contrast material Mulu [employer] Work Phone: Start: 02-07-2020 Assay of urea nitrog en quantitative [facility] Trago Work Phone: Start: 09-07-2019 NEBULIZER TX INTERMITTENT Nito Back Work Phone: Start: 09-06-2019 Radiologic exam ches t 2 views Joselito Hsu Work Phone: Start: 09-06-2019 25 hydroxy includes fractions if performed Joselito Hsu Work Phone: Start: 09-06-2019 Assay of magnesium Joselito Hsu Work Phone: Start: 09-06-2019 Assay of thyroid stimulating hormone tsh Joselito Hsu Work Phone: Start: 09-06-2019 Blood count complete auto&auto difrntl wbc Joselito Hsu Work Phone: Start: 09-06-2019 Comprehensive metabo lic panel Joselito Hsu Work Phone: Start: 09-06-2019 Hemoglobin glycosyla jeffrey a1c Joselito Hsu Work Phone: Start: 09-06-2019 Lipid panel Joselito Coco Wendy holleykasey Work Phone: Start: 09-06-2019 PATIENT FASTING? Joselito Hsu Work Phone: Arthroplasty of knee Carmen W iarda Eye/lens implant bilat Parish RUBIO L foot bunion/reconstruction Parish RUBIO Plan of Treatment Date Care Activity Detail Author Start: 04-10-2030 DTaP/Tdap/Td vaccine (3 - Td or Tdap) DTaP/Tdap/Td vaccine (3 - Td or Tdap) [facility] Start: 03-17-2030 Screening for malignant neoplasm of colon [facility] Start: 11-16-2027 Pneumococcal 0-64 years Vaccine (2 of 2 - PPSV23) Pneumococcal 0-64 years Vaccine (2 of 2 - PPSV23) [facility] Start: 10-27-2024 DTaP/Tdap/Td vaccine (2 - Td) DTaP/Tdap/Td vaccine (2 - Td) [facility] [place] Start: 02-22-2024 ambulatory Ambulatory Facility:[facility] Start: 07-21-2023 End: 07-21-2023 Patient encounter procedure 07/21/2023 10:30 AM EST Appointment [facility] [address] [place] [address] Arlene Dickens C-Lumbar DDD-Mihir Nathaniel [facility] Comment on above: [facility]-Lumbar DDD-Mihir Nathaniel Start: 07-19-2023 End: 07-19-2023 Patient encounter procedure 07/19/2023 10:30 AM EST Appointment [facility] [address] [place] [address] Ana Blank, PT [facility]-Lumbar DDD-Mihir Nathaniel [facility] Comment on above: [facility] DDD-Mihir Nathaniel Start: 07-14-2023 End: 07-14-2023 Patient encounter procedure 07/14/2023 10:30 AM EST Appointment [facility] [address] [address] Arlene Dickens C-Lumbar DDD-Mihir Nathaniel [facility] Comment on above: [facility] DDD-Mihir Nathaniel Start: 07-11-2023 End: 07-11-2023 Patient encounter procedure 07/11/2023 10:30 AM EST Appointment [facility] [address] [place] [address] Ana Blank, PT [facility] DDD-Mihir Nathaniel [facility] Comment on above: [facility] Bert Christianson Start: 12-15-2022 End: 12-15-2022 Patient encounter procedure 12/15/2022 Office Visit Gastroenterology Racheal Braden, CREDIT COLLECTIONS CLERK - UPPER MARKER [address] [address] [facility] Gastroenterology Start: 2022 Respiratory Syncytial Virus (RSV) or age 60 yrs+ (1 - 1-dose 60+ series) Respiratory Syncytial Virus (RSV) or age 60 yrs+ (1 - 1-dose 60+ series) [facility] Start: 10-26-2022 End: 10-26-2022 Patient encounter procedure 10/26/2022 Office Visit Cardiology Joselito Hsu MD [address] [place] [id number] [facility] 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 Start: 09-11-2022 Comprehensive metabolic 2000 panel - Serum or Plasma [facility] Start: 09-11-2022 [facility] Start: 09-10-2022 [facility] Start: 09-10-2022 [facility] Start: 09-10-2022 Referral to Java Flex Developer [facility] Start: 09-10-2022 End: 09-10-2022 [facility] Start: 09-10-[address] [facility] Start: 09-10-2022 [facility] Start: 09-08-2021 End: 09-08-2021 Patient encounter procedure 09/08/2021 Appointment Diabetes Services [facility] Diabetic Education Start: 07-13-2021 End: 07-13-2021 Patient encounter procedure 07/13/2021 Appointment IP Unit Case Parish RD, LD [facility] Diet and Nutrition Start: 07-09-2021 End: 07-09-2021 Patient encounter procedure 07/09/2021 Appointment Diabetes Services [facility] Diabetic Education Start: 07-06-2021 End: 07-06-2021 Patient encounter procedure 07/06/2021 Appointment IP Unit Марина Case, RD, LD [facility] Start: 04-10-2021 Pneumococcal 0-64 years Vaccine (2 - PCV) Pneumococcal 0-64 years Vaccine (2 - PCV) [facility] [employer] [facility] Start: 04-07-2021 COVID-19 Vaccine (3 - Booster for Pfizer series) COVID-19 Vaccine (3 - Booster for Pfizer series) [facility] Start: 02-06-2021 Creatinine measurement Creatinine monitoring [facility] Start: 09-29-2020 Breast cancer screen Breast cancer screen [place], [place] Start: 09-29-2020 Screening for malignant neoplasm of breast Breast cancer screen [facility] Start: 09-05-2020 A1C test (Diabetic or Prediabetic) A1C test (Diabetic or Prediabetic) [place] Start: 09-05-2020 Creatinine monitoring Creatinine monitoring [place], [place] Start: 09-05-2020 HbA1c (Bld) [Mass fraction] A1C test (Diabetic or Prediabetic) [place] Start: 09-05-2020 Hemoglobin A1c measurement A1C test (Diabetic or Prediabetic) [facility] Start: 09-05-2020 Lipid panel [facility] Start: 09-05-2020 Lipid screen Lipid screen [place] Start: 09-05-2020 Potassium monitoring Potassium monitoring [facility] Start: 09-03-2020 Shingles Vaccine (2 of 3) Shingles Vaccine (2 of 3) [facility] Start: 09-03-2020 Shingles vaccine (3 of 3) Shingles vaccine (3 of 3) [facility] Start: 03-31-2020 End: 03-31-2020 Office Visit 03/31/2020 Office Visit General Surgery Glenn Malik MD [address] [place] [address] [address] [place] [address] [facility] Case Management Social Worker Claudia Yarbrough Start: 03-04-2020 Influenza vaccination Flu vaccine (#1) [place], [place] Start: 02-28-2020 End: 02-28-2020 Office Visit 02/28/2020 Office Visit General Surgery Glenn Malik MD [address] [place] [address] [address] [place] [address] [phone] [facility] Case Management Social Worker Claudia Yarbrough Start: 09-07-2019 End: 09-07-2019 Appointment 09/07/2019 Appointment Pulmonary Function Testing [facility] PFT Start: 06-19-2019 Creatinine monitoring Creatinine monitoring [place] Start: 06-19-2019 Potassium monitoring Potassium monitoring [place] Start: 2012 Colon cancer screen colonoscopy Colon cancer screen colonoscopy [place], [place] Start: 2012 Screening for malignant neoplasm of colon Colon cancer screen colonoscopy [place], [place] Start: 2012 Shingles Vaccine (1 of 2) Shingles Vaccine (1 of 2) [place] Start: 11-16-2007 Screening for malignant neoplasm of colon [facility] Start: 1992 Screening for malignant neoplasm of cervix [facility] Start: 11-16-1983 Cervical cancer screen Cervical cancer screen [place], [place] Start: 11-16-1983 Screening for malignant neoplasm of cervix [facility] Start: 1980 Hepatitis C screening Hepatitis C screen [facility] Start: 1977 HIV screen HIV screen [place], [place] Start: 1977 HIV screening HIV screen [facility] Start: 1974 Depression Screen Depression Screen [facility] Start: 1972 Lipid screen Lipid screen [place], [place] Start: 1962 Hepatitis C screen Hepatitis C screen [place], [place] Start: 1962 Hepatitis C screening Hepatitis C screen [facility] Calculated LDL cholesterol level [facility] End: 03-17-2020 CEA CEA Lab Routine One Time for 1 Occurrences starting 03/17/2020 until 03/17/2020 [place] Comment on above: One Time for 1 Occurrences starting 03/04 until 03/17/2020 CEA CEA Lab Routine 03/17/2020 12:00 PM EDT [place] Cholesterol.total/Ch ol esterol in HDL [Mass Ratio] in Serum or Plasma [facility] End: 08-27-2022 Echocardiogram complete Echocardiogram complete Echocardiography Routine Hypertension, unspecified type Bilateral leg edema 1 Occurrences starting 08/27/2022 until 08/27/2022 [employer] Phone: Comment on above: 1 Occurrences starting 08/27/2022 until 08/27/2022 EKG 12 Lead EKG 12 Lead ECG Routine Syncope and collapse Pre-operative clearance Essential hypertension Hyperlipidemia, unspecified hyperlipidemia type Vitamin D deficiency 09/06/2019 11:05 AM EST [facility] Lead EKG 12 Lead ECG STAT 10/14/2022 9:44 PM EDT [employer] Phone: End: 09-07-2019 Full PFT Study With Bronchodilator Full PFT Study With Bronchodilator PFT Routine SOB (shortness of breath) 1 Occurrences starting 09/07/2019 until 09/07/2019 [facility] Comment on above: 1 Occurrences starting 09/07/2019 until 09/07/2019 End: 05-21-2021 Full PFT Study With Bronchodilator Full PFT Study With Bronchodilator PFT Routine SOB (shortness of breath) Obstructive sleep apnea syndrome Moderate persistent asthma without complication Tobacco abuse 1 Occurrences starting 05/21/2021 until 05/21/2021 Rep Phone: Comment on above: 1 Occurrences starting 05/21/2021 until 05/21/2021 Glucose measurement estimated from glycated hemoglobin [facility] H. PYLORI DETECTION [facility] Comment on above: Release Upon Ordering for 1 Occurrences starting 03/17/2020 Hemoglobin A1c/Hemoglobin.total in Blood [facility] End: 08-10-2023 Hemoglobin A1c/Hemoglobin.total in Blood [employer] Phone: Comment on above: Once for 1 Occurrences starting 08/10/19 24 until 08/10/2023 Oxygen therapy [Minimum Data Set] Initiate Oxygen Therapy Protocol Respiratory Care Routine Daily until discontinued starting 03/17/2020 [employer] Comment on above: Daily until discontinued starting 2019 End: 10-14-2022 Oxygen therapy [Minimum Data Set] Initiate Oxygen Therapy Protocol Respiratory Care STAT One Time for 1 Occurrences starting 10/14/2022 until 10/14/2022 [employer] Phone: Comment on above: One Time for 1 Occurrences starting 10/02 until 10/14/2022 Patient Education Heart Failure, Adult (DC) [facility] Work Phone: End: 08-10-2023 Patient Fasting? PARIS NORWOODKUNAL SEGURA RORY BARRETO Comment on above: Once for 1 Occurrences starting 08/10/19 24 until 08/10/2023 Patient referral [facility] Work Phone: Surgical Pathology Surgical Path ology Lab Routine Release Upon Ordering for 1 Occurrences starting 03/17/2020 [place] Comment on above: Release Upon Ordering for 1 Occurrences starting 03/17/2020 End: 02-19-2020 US NON OB TRANSVAGINAL US NON OB TRANSVAGINAL Imaging Routine Hypertrophy of uterus Right lower quadrant pain 1 Occurrences starting 02/19/2020 until 02/19/2020 [place] Comment on above: 1 Occurrences starting 02/19/2020 until 02/19/2020 US NON OB TRANSVAGINAL US NON OB TRANSVAGINAL Imaging Routine Hypertrophy of uterus Right lower quadrant pain 02/19/2020 2:36 PM EDT [place], [place] VLDL cholesterol measurement [facility] Immunizations Immunization Date Immunization Notes Care Provider Jeronimo wilcox 03-18-2023 influenza, injectabl e, quadrivalent, preservative free Myron Rust [facility] 05-11-2022 influenza virus vaccine, unspecified formulation Lupis SCHWARTZ [facility] 05-11-2022 SARS-CoV-2 (COVID-19 ) [id number] Lupis SCHWARTZ [facility] 12-15-2021 COVID-19 mRNA, Comirnaty (Pfizer) [facility] 12-15-2021 SARS-CoV-2 mRNA (gpgygxumjyi-xlwc-ormvm se) vaccine Lupis SCHWARTZ [facility] 06-12-2021 SARS-CoV-2 (COVID-19 ) mRNA BNT-162b2 vax [employer] [facility] 05-05-2021 influenza virus vaccine, unspecified formulation LupisLuristic [facility] 10-06-2020 SARS-CoV-2 (COVID-19 ) mRNA BNT-162b2 [employer] [facility] 09-16-2020 SARS-CoV-2 (COVID-19 ) mRNA BNT-162b2 vax [employer] [facility] 07-09-2020 zoster vaccine, live Parish L YNCH [facility] [place] 04-10-2020 influenza virus vaccine, unspecified formulation Parish RUBIO [facility] [place] 04-10-2020 pneumococcal polysaccharide vaccine, 23 valent Parish RUBIO [facility] [place] 04-10-2020 tetanus toxoid, unspecified formulation Parish RUBIO [facility] [place] 04-10-2020 zoster vaccine, live Parish L YNCH [facility] [place] 05-08-2019 influenza virus vaccine, unspecified formulation Parish RUBIO [facility] [place] 04-24-2018 influenza virus vaccine, unspecified formulation Parish RUBIO [facility] [place] 03-19-2018 influenza virus vaccine, unspecified formulation [facility] 12-16-2017 pneumococcal polysaccharide vaccine, 23 valent Lupis EFREN [facility] [place] 10-27-2014 tetanus toxoid, redu karen diphtheria toxoid, and acellular pertussis vaccine, adsorbed Lupis SCHWARTZ [facility] [place] Payers Date Payer Category Payer Self-pay 2017 Private Health Insurance [employer] xxxxxxxxx 2017-Present [phone] [address] [place] [address] xxxxxxxxx [id number] 2017 Private Health Insurance [id number]. [id number] 2017 Private Health Insurance [id number] 1.2.840.144214.1.13.239.2. 7.3.175430.315 1962 Unknown [id number] 2.840.1.593854.3.579.2. 356 1962 Unknown [id number] 2.16840.1.637651.3.579.2. 356 1962 Unknown [id number] 2.16.840.1.443041.3.579.2. 173 1962 Unknown [id number] 2.16.840.1.798547.3.579.2. 174 1962 Unknown [id number] 2.16.840.1.105064.3.579.2. 174 1962 Unknown [id number] 2.16.840.1.529956.3.579.2. 174 1962 Unknown [id number] 2.16840.1.564025.3.579.2. 174 1962 Unknown [id number] 2.16.840.1.356110.3.579.2. 174 1962 Unknown [id number] 2.16.840.1.071242.3.579.2. 174 1962 Unknown [id number] 2.16.840.1.479108.3.579.2. 174 1962 Unknown [id number] 2.16.840.1.325474.3.579.2. 174 1962 Unknown [id number] 2.16.840.1.643522.3.579.2. 174 1962 Unknown [id number] 2.16.840.1.093429.3.579.2. 174 1962 Unknown [id number] 2.16.840.1.147840.3.579.2. 174 1962 Unknown [id number] 2.16.840.1.202013.3.579.2. 174 1962 Unknown [id number] 2.16.840.1.422898.3.579.2. 1962 Unknown [id number] 2.16.840.1.772693.3.579.2. 1962 Unknown [id number] 2.16.840.1.693978.3.579.2. 1962 Unknown [id number] 2.16.840.1.619207.3.579.2. 72 1962 Unknown [id number] 2.16.840.1.487866.3.579.2. 1962 Unknown [id number] 2.16.840.1.129290.3.579.2. 1962 Unknown [id number] 2.16.840.1.031788.3.579.2. 72 1962 Unknown [id number] 2.16.840.1.607151.3.579.2. 727 1962 Unknown [id number] 2.16.840.1.969088.3.579.2. 727 1962 Unknown [id number] 2.16.840.1.232563.3.579.2. 727 1962 Unknown [id number] 2.16.840.1.407488.3.579.2. 727 1962 Unknown [id number] 2.16.840.1.158941.3.579.2. 727 1962 Unknown [id number] 2.16.840.1.726411.3.579.2. 727 1962 Unknown [id number] 2.16.840.1.567742.3.579.2. 727 1962 Unknown [id number] 2.16.840.1.459574.3.579.2. 727 1962 Unknown [id number] 2.16.840.1.074480.3.579.2. 727 Unknown [id number] 2.16.840.1.323241.3.579.2. 531 Social History Date Type Detail Facility Start: 09-06-2019 End: 10-14-2022 Tobacco smoking status NHIS Current every day smoker [place], [place] History of tobacco use Cigarette Smoker [place] Start: 09-06-2019 End: 12-15-2022 Cigarettes smoked current (pack per day) - Reported [place] Start: 09-06-2019 End: 12-15-2022 Alcohol intake Current drinker of alcohol (finding) [place] Start: 02-23-2018 Tobacco Comment 5 cigarettes/day [place] Start: 02-23-2018 Alcohol Comment occas. Irais [place] Start: 1960 Sex Assigned At Not on file [place] Start: 09-06-2019 End: 10-14-2022 Tobacco use and exposure Never used [place] Start: 10-04-2022 End: 10-14-2022 Exposure to SARS-CoV-2 (event) Not sure [place] Start: 12-30-2021 End: 12-06-2023 Tobacco smoking status Heavy tobacco smoker (finding) [facility] [place] Tobacco smoking status Never Gabriella [facility] [place] Start: 10-14-2022 End: 12-15-2022 Sex Assigned At Female [facility] [place] Start: 09-10-2022 End: 09-10-2022 Tobacco smoking status NHIS Smoker (finding) [facility] Start: 1960 Sex Assigned At Female F [facility] Start: 10-15-2022 History SDOH Alcohol Frequency 2 [employer] Work Phone: Start: 10-15-2022 History SDOH Alcohol Std Drinks 5 [employer] Work Phone: Start: 10-15-2022 History SDOH Alcohol Binge 4 [employer] Work Phone: Start: 10-14-2022 Alcohol Comment patient had 2 bottles of rum today [employer] Work Phone: How often to you hav e a drink containing alcohol? Monthly or less [employer] How many standard drinks containing alcohol do you have on a typical day? 10 or more [employer] How often do you hav e 6 or more drinks on 1 occasion? Weekly [employer] Medical Equipment Procedure Code Equipment Code Equipment Origin al Text Equipment Identifier Dates Cement Smartghv W/ Gent 40gr Must Order 20ea [id number] Start: 03-15-2018 Cement Smartghv W/ Gent 40gr Must Order 20ea [id number] Start: 03-15-2018 Cement Smartghv W/ Gent 40gr Must Order 20ea [id number] Start: 04-26-2018 Impl Knee Patell a Asym [id number] Start: 04-26-2018 Lancets, See Instructions, 300 EA, 3, Use to check BS TID and PRN dx E11.9, [facility], Supply, 170, cm, 05/27/21 8:31:00 EST, Height/Length Dosing, 157.8, kg, 05/27/21 8:31:00 EST, Weight Dosing Start: 06-03-2021 Test Strips, See Instructions, 300 EA, 3, Use to test BS TID and PRN dx E11.9, [facility], Supply, 170, cm, 05/27/21 8:31:00 EST, Height/Length Dosing, 157.8, kg, 05/27/21 8:31:00 EST, Weight Dosing Start: 06-03-2021 Lancets, See Instructions, 100 EA, 3, Use to check BS daily dx E11.9, [id number], Supply, 163, cm, 12/30/21 11:09:00 EDT, Height/Length Dosing, 154, kg, 12/30/21 11:09:00 EDT, Weight Dosing Start: 04-13-2022 Test Strips, See Instructions, 100 EA, 3, Use to test BS daily dx E11.9, [id number], Supply, 163, cm, 12/30/21 11:09:00 EDT, Height/Length Dosing, 154, kg, 12/30/21 11:09:00 EDT, Weight Dosing Start: 04-13-2022 Lancets, See Instructions, 100 EA, 3, Use to check BS daily dx E11.9, [facility][id number], Supply, 163, cm, 12/30/21 11:09:00 EDT, Height/Length Dosing, 154, kg, 12/30/21 11:09:00 EDT, Weight Dosing Start: 04-13-2022 Test Strips, See Instructions, 100 EA, 3, Use to test BS daily dx E11.9, [facility][id number], Supply, 163, cm, 12/30/21 11:09:00 EDT, Height/Length Dosing, 154, kg, 12/30/21 11:09:00 EDT, Weight Dosing Start: 04-13-2022 Lancets, See Instructions, 100 EA, 3, Use to check BS daily dx E11.9, [facility][id number], Supply, 163, cm, 12/30/21 11:09:00 EDT, Height/Length Dosing, 154, kg, 12/30/21 11:09:00 EDT, Weight Dosing Start: 04-13-2022 Test Strips, See Instructions, 100 EA, 3, Use to test BS daily dx E11.9, [facility] #[id number], Supply, 163, cm, 12/30/21 11:09:00 EDT, Height/Length Dosing, 154, kg, 12/30/21 11:09:00 EDT, Weight Dosing Start: 04-13-2022 Lancets, See Instructions, 100 EA, 3, Use to check BS daily dx E11.9, [facility] #[id number], Supply, 163, cm, 12/30/21 11:09:00 EDT, Height/Length Dosing, 154, kg, 12/30/21 11:09:00 EDT, Weight Dosing Start: 04-13-2022 Test Strips, See Instructions, 100 EA, 3, Use to test BS daily dx E11.9, [facility] #[id number], Supply, 163, cm, 12/30/21 11:09:00 EDT, Height/Length Dosing, 154, kg, 12/30/21 11:09:00 EDT, Weight Dosing Start: 04-13-2022 Lancets, See Instructions, 100 EA, 3, Use to check BS daily dx E11.9, [facility] #[id number], Supply, 163, cm, 12/30/21 11:09:00 EDT, Height/Length Dosing, 154, kg, 12/30/21 11:09:00 EDT, Weight Dosing Start: 04-13-2022 Test Strips, See Instructions, 100 EA, 3, Use to test BS daily dx E11.9, [facility] #[id number], Supply, 163, cm, 12/30/21 11:09:00 EDT, Height/Length Dosing, 154, kg, 12/30/21 11:09:00 EDT, Weight Dosing Start: 04-13-2022 Lancets, See Instructions, 100 EA, 3, Use to check BS daily dx E11.9, [facility] #[id number], Supply, 163, cm, 12/30/21 11:09:00 EDT, Height/Length Dosing, 154, kg, 12/30/21 11:09:00 EDT, Weight Dosing Start: 04-13-2022 Test Strips, See Instructions, 100 EA, 3, Use to test BS daily dx E11.9, [facility] #[id number], Supply, 163, cm, 12/30/21 11:09:00 EDT, Height/Length Dosing, 154, kg, 12/30/21 11:09:00 EDT, Weight Dosing Start: 04-13-2022 Lancets, See Instructions, 100 EA, 3, Use to check BS daily dx E11.9, [facility] #[id number], Supply, 163, cm, 12/30/21 11:09:00 EDT, Height/Length Dosing, 154, kg, 12/30/21 11:09:00 EDT, Weight Dosing Start: 04-13-2022 Test Strips, See Instructions, 100 EA, 3, Use to test BS daily dx E11.9, [facility] #[id number], Supply, 163, cm, 12/30/21 11:09:00 EDT, Height/Length Dosing, 154, kg, 12/30/21 11:09:00 EDT, Weight Dosing Start: 04-13-2022 Lancets, See Instructions, 100 EA, 3, Use to check BS daily dx E11.9, [facility] #[id number], Supply, 163, cm, 12/30/21 11:09:00 EDT, Height/Length Dosing, 154, kg, 12/30/21 11:09:00 EDT, Weight Dosing Start: 04-13-2022 Test Strips, See Instructions, 100 EA, 3, Use to test BS daily dx E11.9, [facility] #[id number], Supply, 163, cm, 12/30/21 11:09:00 EDT, Height/Length Dosing, 154, kg, 12/30/21 11:09:00 EDT, Weight Dosing Start: 04-13-2022 Lancets, See Instructions, 100 EA, 3, Use to check BS daily dx E11.9, [facility] #[id number], Supply, 163, cm, 12/30/21 11:09:00 EDT, Height/Length Dosing, 154, kg, 12/30/21 11:09:00 EDT, Weight Dosing Start: 04-13-2022 Test Strips, See Instructions, 100 EA, 3, Use to test BS daily dx E11.9, [facility] #[id number], Supply, 163, cm, 12/30/21 11:09:00 EDT, Height/Length Dosing, 154, kg, 12/30/21 11:09:00 EDT, Weight Dosing Start: 04-13-2022 Lancets, See Instructions, 100 EA, 3, Use to check BS daily dx E11.9, [facility] #[id number], Supply, 163, cm, 12/30/21 11:09:00 EDT, Height/Length Dosing, 154, kg, 12/30/21 11:09:00 EDT, Weight Dosing Start: 04-13-2022 Test Strips, See Instructions, 100 EA, 3, Use to test BS daily dx E11.9, [facility] #[id number], Supply, 163, cm, 12/30/21 11:09:00 EDT, Height/Length Dosing, 154, kg, 12/30/21 11:09:00 EDT, Weight Dosing Start: 04-13-2022 Lancets, See Instructions, 100 EA, 3, Use to check BS daily dx E11.9, [facility] #[id number], Supply, 163, cm, 12/30/21 11:09:00 EDT, Height/Length Dosing, 154, kg, 12/30/21 11:09:00 EDT, Weight Dosing Start: 04-13-2022 Test Strips, See Instructions, 100 EA, 3, Use to test BS daily dx E11.9, [facility] #[id number], Supply, 163, cm, 12/30/21 11:09:00 EDT, Height/Length Dosing, 154, kg, 12/30/21 11:09:00 EDT, Weight Dosing Start: 04-13-2022 Lancets, See Instructions, 100 EA, 3, Use to check BS daily dx E11.9, [facility] #[id number], Supply, 163, cm, 12/30/21 11:09:00 EDT, Height/Length Dosing, 154, kg, 12/30/21 11:09:00 EDT, Weight Dosing Start: 04-13-2022 Test Strips, See Instructions, 100 EA, 3, Use to test BS daily dx E11.9, [facility] #[id number], Supply, 163, cm, 12/30/21 11:09:00 EDT, Height/Length Dosing, 154, kg, 12/30/21 11:09:00 EDT, Weight Dosing Start: 04-13-2022 Lancets, See Instructions, 100 EA, 3, Use to check BS daily dx E11.9, [facility] #[id number], Supply, 163, cm, 12/30/21 11:09:00 EDT, Height/Length Dosing, 154, kg, 12/30/21 11:09:00 EDT, Weight Dosing Start: 04-13-2022 Test Strips, See Instructions, 100 EA, 3, Use to test BS daily dx E11.9, [facility] #[id number], Supply, 163, cm, 12/30/21 11:09:00 EDT, Height/Length Dosing, 154, kg, 12/30/21 11:09:00 EDT, Weight Dosing Start: 04-13-2022 Lancets, See Instructions, 100 EA, 3, Use to check BS daily dx E11.9, [facility] #[id number], Supply, 163, cm, 12/30/21 11:09:00 EDT, Height/Length Dosing, 154, kg, 12/30/21 11:09:00 EDT, Weight Dosing Start: 04-13-2022 Test Strips, See Instructions, 100 EA, 3, Use to test BS daily dx E11.9, [facility] #[id number], Supply, 163, cm, 12/30/21 11:09:00 EDT, Height/Length Dosing, 154, kg, 12/30/21 11:09:00 EDT, Weight Dosing Start: 04-13-2022 Lancets, See Instructions, 100 EA, 3, Use to check BS daily dx E11.9, [facility] #[id number], Supply, 163, cm, 12/30/21 11:09:00 EDT, Height/Length Dosing, 154, kg, 12/30/21 11:09:00 EDT, Weight Dosing Start: 04-13-2022 Test Strips, See Instructions, 100 EA, 3, Use to test BS daily, [facility] #[id number], Supply, 167.5, cm, 10/18/22 13:30:00 EDT, Height/Length Dosing, 147, kg, 10/18/22 13:30:00 EDT, Weight Dosing Start: 10-19-2022 Lancets, See Instructions, 100 EA, 3, Use to check BS daily dx E11.9, [facility] #[id number], Supply, 163, cm, 12/30/21 11:09:00 EDT, Height/Length Dosing, 154, kg, 12/30/21 11:09:00 EDT, Weight Dosing Start: 04-13-2022 Test Strips, See Instructions, 100 EA, 3, Use to test BS daily, [facility] #[id number], Supply, 167.5, cm, 10/18/22 13:30:00 EDT, Height/Length Dosing, 147, kg, 10/18/22 13:30:00 EDT, Weight Dosing Start: 10-19-2022 Lancets, See Instructions, 100 EA, 3, Use to check BS daily dx E11.9, [facility] #[id number], Supply, 163, cm, 12/30/21 11:09:00 EDT, Height/Length Dosing, 154, kg, 12/30/21 11:09:00 EDT, Weight Dosing Start: 04-13-2022 Test Strips, See Instructions, 100 EA, 3, Use to test BS daily, [facility] #[id number], Supply, 167.5, cm, 10/18/22 13:30:00 EDT, Height/Length Dosing, 147, kg, 10/18/22 13:30:00 EDT, Weight Dosing Start: 10-19-2022 Lancets, See Instructions, 100 EA, 3, Use to check BS daily dx E11.9, [facility] #[id number], Supply, 163, cm, 12/30/21 11:09:00 EDT, Height/Length Dosing, 154, kg, 12/30/21 11:09:00 EDT, Weight Dosing Start: 04-13-2022 Test Strips, See Instructions, 100 EA, 3, Use to test BS daily, [facility] #[id number], Supply, 167.5, cm, 10/18/22 13:30:00 EDT, Height/Length Dosing, 147, kg, 10/18/22 13:30:00 EDT, Weight Dosing Start: 10-19-2022 Lancets, See Instructions, 100 EA, 3, Use to check BS daily dx E11.9, [facility] #[id number], Supply, 163, cm, 12/30/21 11:09:00 EDT, Height/Length Dosing, 154, kg, 12/30/21 11:09:00 EDT, Weight Dosing Start: 04-13-2022 Test Strips, See Instructions, 100 EA, 3, Use to test BS daily, [facility] #[id number], Supply, 167.5, cm, 10/18/22 13:30:00 EDT, Height/Length Dosing, 147, kg, 10/18/22 13:30:00 EDT, Weight Dosing Start: 10-19-2022 Lancets, See Instructions, 100 EA, 3, Use to check BS daily dx E11.9, [facility] #[id number], Supply, 163, cm, 12/30/21 11:09:00 EDT, Height/Length Dosing, 154, kg, 12/30/21 11:09:00 EDT, Weight Dosing Start: 04-13-2022 Test Strips, See Instructions, 100 EA, 3, Use to test BS daily, [facility] #[id number], Supply, 167.5, cm, 10/18/22 13:30:00 EDT, Height/Length Dosing, 147, kg, 10/18/22 13:30:00 EDT, Weight Dosing Start: 10-19-2022 Lancets, See Instructions, 100 EA, 3, Use to check BS daily dx E11.9, [facility] #[id number], Supply, 163, cm, 12/30/21 11:09:00 EDT, Height/Length Dosing, 154, kg, 12/30/21 11:09:00 EDT, Weight Dosing Start: 04-13-2022 Test Strips, See Instructions, 100 EA, 3, Use to test BS daily, [facility] #[id number], Supply, 167.5, cm, 10/18/22 13:30:00 EDT, Height/Length Dosing, 147, kg, 10/18/22 13:30:00 EDT, Weight Dosing Start: 10-19-2022 Lancets, See Instructions, 100 EA, 3, Use to check BS daily dx E11.9, [facility] #[id number], Supply, 163, cm, 12/30/21 11:09:00 EDT, Height/Length Dosing, 154, kg, 12/30/21 11:09:00 EDT, Weight Dosing Start: 04-13-2022 Test Strips, See Instructions, 100 EA, 3, Use to test BS daily, [facility] #[id number], Supply, 167.5, cm, 10/18/22 13:30:00 EDT, Height/Length Dosing, 147, kg, 10/18/22 13:30:00 EDT, Weight Dosing Start: 10-19-2022 Lancets, See Instructions, 100 EA, 3, Use to check BS daily dx E11.9, [facility] #[id number], Supply, 163, cm, 12/30/21 11:09:00 EDT, Height/Length Dosing, 154, kg, 12/30/21 11:09:00 EDT, Weight Dosing Start: 04-13-2022 Test Strips, See Instructions, 100 EA, 3, Use to test BS daily, [facility] #[id number], Supply, 167.5, cm, 10/18/22 13:30:00 EDT, Height/Length Dosing, 147, kg, 10/18/22 13:30:00 EDT, Weight Dosing Start: 10-19-2022 Lancets, See Instructions, 100 EA, 3, Use to check BS daily dx E11.9, [facility] #[id number], Supply, 163, cm, 12/30/21 11:09:00 EDT, Height/Length Dosing, 154, kg, 12/30/21 11:09:00 EDT, Weight Dosing Start: 04-13-2022 Test Strips, See Instructions, 100 EA, 3, Use to test BS daily, [facility] #[id number], Supply, 167.5, cm, 10/18/22 13:30:00 EDT, Height/Length Dosing, 147, kg, 10/18/22 13:30:00 EDT, Weight Dosing Start: 10-19-2022 Lancets, See Instructions, 100 EA, 3, Use to check BS daily dx E11.9, [facility] #[id number], Supply, 163, cm, 12/30/21 11:09:00 EDT, Height/Length Dosing, 154, kg, 12/30/21 11:09:00 EDT, Weight Dosing Start: 04-13-2022 Test Strips, See Instructions, 100 EA, 3, Use to test BS daily, [facility] #[id number], Supply, 167.5, cm, 10/18/22 13:30:00 EDT, Height/Length Dosing, 147, kg, 10/18/22 13:30:00 EDT, Weight Dosing Start: 10-19-2022 Lancets, See Instructions, 100 EA, 3, Use to check BS daily dx E11.9, [facility] #[id number], Supply, 163, cm, 12/30/21 11:09:00 EDT, Height/Length Dosing, 154, kg, 12/30/21 11:09:00 EDT, Weight Dosing Start: 04-13-2022 Test Strips, See Instructions, 100 EA, 3, Use to test BS daily, [facility] #[id number], Supply, 167.5, cm, 10/18/22 13:30:00 EDT, Height/Length Dosing, 147, kg, 10/18/22 13:30:00 EDT, Weight Dosing Start: 10-19-2022 Lancets, See Instructions, 100 EA, 3, Use to check BS daily dx E11.9, [facility] #[id number], Supply, 163, cm, 12/30/21 11:09:00 EDT, Height/Length Dosing, 154, kg, 12/30/21 11:09:00 EDT, Weight Dosing Start: 04-13-2022 Test Strips, See Instructions, 100 EA, 3, Use to test BS daily, [facility] #[id number], Supply, 167.5, cm, 10/18/22 13:30:00 EDT, Height/Length Dosing, 147, kg, 10/18/22 13:30:00 EDT, Weight Dosing Start: 10-19-2022 Lancets, See Instructions, 100 EA, 3, Use to check BS daily dx E11.9, [facility] #[id number], Supply, 163, cm, 12/30/21 11:09:00 EDT, Height/Length Dosing, 154, kg, 12/30/21 11:09:00 EDT, Weight Dosing Start: 04-13-2022 Test Strips, See Instructions, 100 EA, 3, Use to test BS daily, [facility] #[id number], Supply, 167.5, cm, 10/18/22 13:30:00 EDT, Height/Length Dosing, 147, kg, 10/18/22 13:30:00 EDT, Weight Dosing Start: 10-19-2022 Unknown Unknown 12/23/23 Non Biological Unknown FDA Start: 12-23-2023 Lancets, See Instructions, 100 EA, 3, Use to check BS daily dx E11.9, [facility] #[id number], Supply, 163, cm, 12/30/21 11:09:00 EDT, Height/Length Dosing, 154, kg, 12/30/21 11:09:00 EDT, Weight Dosing Start: 04-13-2022 Test Strips, See Instructions, 100 EA, 3, Use to test BS daily, [facility] #[id number], Supply, 167.5, cm, 10/18/22 13:30:00 EDT, Height/Length Dosing, 147, kg, 10/18/22 13:30:00 EDT, Weight Dosing Start: 10-19-2022 Unknown Unknown 12/23/23 Non Biological Unknown FDA Start: 12-23-2023 Lancets, See Instructions, 100 EA, 3, Use to check BS daily dx E11.9, [facility] #[id number], Supply, 163, cm, 12/30/21 11:09:00 EDT, Height/Length Dosing, 154, kg, 12/30/21 11:09:00 EDT, Weight Dosing Start: 04-13-2022 Test Strips, See Instructions, 100 EA, 3, Use to test BS daily, [facility] #[id number], Supply, 167.5, cm, 10/18/22 13:30:00 EDT, Height/Length Dosing, 147, kg, 10/18/22 13:30:00 EDT, Weight Dosing Start: 10-19-2022 Goals Date Patient Goal Desired Activity /State Functional Status Date Assessment Result Facility 12-23-2023 Functional Status N/A [facility] 12-06-2023 Functional Status No [facility] 11-25-2023 Functional Status N/A [facility] 11-02-2023 Functional Status N/A [facility] 10-26-2023 Functional Status N/A [facility] 10-25-2023 Functional Status No [facility] 10-11-2023 Functional Status N/A [facility] 08-10-2023 Functional Status N/A [facility] 05-09-2023 Functional Status N/A [facility] 04-26-2023 Functional Status N/A [facility] 03-18-2023 Functional Status N/A [facility] 11-26-2022 Functional Status N/A [facility] 10-13-2022 Functional Status No [facility] 09-29-2022 Functional Status No [facility] 09-24-2022 Functional Status N/A [facility] 09-22-2022 Functional Status No [facility] 09-14-2022 Functional status [facility] at [facility] Work Phone: 09-06-2022 Functional Status N/A [facility] 08-20-2022 Functional Status N/A [facility] 12-30-2021 Functional Status N/A [facility] Mental Status Date Assessment Result Facility 09-14-2022 Cognitive function Cognitive Sta tus Patient at [facility] Work Phone: Clinical Notes 07-02-2021 to 12-26-2023 Note Date & Type Note Facility 12-26-2023 Note [id number] [facility] 12-23-2023 Hospital Discharg e instructions Patient Education 12/23/2023 13:17:05 Colonoscopy, Care After Surgery Salam (CUSTOM) Colonoscopy Care After Surgery Please read the instructions outlined below and refer to this sheet in the next few weeks. These discharge instructions provide you with general information on caring for yourself after you leave the hospital. Your doctor may also give you specific instructions. While your treatment has been planned according to the most current medical practices available, unavoidable complications occasionally occur. If you have any problems or questions after discharge, please call your doctor. ACTIVITY You may resume your regular activity, but move at a slower pace for the next 24 hours. Take frequent rest periods for the next 24 hours. Walking will help get rid of the air and reduce the bloated feeling in your abdomen (belly). No driving for 24 hours (because of the anesthesia (medicine) used during the test). You may shower. Do not sign any important legal documents or operate any machinery for 24 hours (because of the anesthesia used during the test). NUTRITION Drink plenty of fluids. You may resume your normal diet as instructed by your doctor. Begin with a light meal and progress to your normal diet. Heavy or fried foods are harder to digest and may make you feel nauseated (sick to your stomach). Avoid alcoholic beverages for 24 hours or as instructed. MEDICATIONS You may resume your normal medications unless your doctor tells you otherwise. WHAT YOU CAN EXPECT TODAY Some feelings of bloating in the abdomen. Passage of more gas than usual. Spotting of blood in your stool or on the toilet paper. FOLLOW-UP Your doctor will discuss the results of your test with you. SEEK IMMEDIATE MEDICAL ATTENTION IF: There is more than a spotting of blood in your stool. There is abdominal distention (your abdomen is swollen). There is vomiting. You have a temperature over 101.5 F. There is abdominal pain or discomfort that is severe or gets worse throughout the day. Follow Up Care 11/02/2023 11:19:36 With:Marjan SAMPSON, KAMALJIT Rosa, [facility] Address: [address] [place] [address], [address] [phone] [phone] When: Unknown Comments:Call Office in 2 weeks for results or follow-up Appt. [facility] 12-23-2023 Evaluation + Plan note Extrac jeffrey from: Title:ANES Post-operative Note---General Author: Zaid Benz MD Date:12/23/23 Plan Transfer/Discharge: Transfer/Discharge Discharge when meets criteria ( To home ). Extracted from: Title:ANES Pre-operative Note 2022 Author:Zaid Rojas Date:12/23/23 Plan [place] [employer] (ASA) physical status classification: Class III. Anesthetic Preoperative Plan: Anesthesia General. Future Appointments Appointment Date:01/27/2024 10:00:00 AM Scheduled Provider:Marjan SAMPSON, Walker Pritchett Location[facility] Appointment Type:BADH Follow Up Appointment Date:02/22/2024 01:20:00 PM Scheduled Provider:Yocasta SMITH, CREDIT COLLECTIONS CLERK-Myron VILLATORO Location:[facility] Appointment Type:FM Open Appointment Date:06/05/2024 01:00:00 PM Scheduled Provider:Alirio Ramirez MD [facility] [place] Appoint[facility] Type:Cardiology Follow Up (FT) Future Scheduled Tests Laboratory* Hep B Core Ab, Tot 11/02/23 * Foghh-3-Kivptyxajna 11/02/23 * B-Type Natriuretic Peptide 10/25/23 * Antimitochondrial Antibody, Quantitative 11/02/23 * Smooth Muscle Antibody Screen 11/02/23 * KIM w/Reflex if POS 11/02/23 * IgG, Quant. 11/02/23 * TIBC Calculated 11/02/23 * Hepatitis A Virus (HAV) Antibody, Total 11/02/23 * HCV Antibody RFX to Quant PCR 11/02/23 * Basic Metabolic Panel 10/25/23 * Comprehensive Metabolic Panel 11/02/23 * Ferritin 11/02/23 * Hepatitis B Surface Antibody 11/02/23 * Hepatitis B Surface Antigen 11/02/23 * Iron Level 11/02/23 * PT 11/02/23 [facility]05-23-2024 Hospital Discharge instructions Patient Education 11/24/2023 19:09:12 Hepatomegaly Hepatomegaly Hepatomegaly is when a person's liver is larger than normal. Some health problems can cause the liver to get bigger. Some people may have an enlarged liver but do not know it. What are the causes? This condition may be caused by: Cirrhosis. This is long-term (chronic) liver damage that is often caused by drinking too much alcohol. Cirrhosis is also caused by certain diseases, infection, and some medicines. Hepatitis. This is an infection of the liver. Fatty liver disease. Conditions that cause minerals or trace elements to accumulate in the liver, such as Eliezer disease. Cancer. The disease may start in the liver or start somewhere else in the body and spread to the liver. Heart or blood vessel disease. These can cause hepatomegaly if blood backs up into the liver. In some cases, the cause of the condition is not known. What increases the risk? You are more likely to develop this condition if you: Drink too much alcohol. Have diabetes. Are obese. Are exposed to hepatitis B or hepatitis C. What are the signs or symptoms? Symptoms of this condition include: Abdominal pain on the right side. Fatigue. Loss of appetite. Nausea. Vomiting. The skin or the white parts of your eyes turning yellow (jaundice). In some cases, there are no symptoms of this condition. How is this diagnosed? This condition may be diagnosed with your medical history and a physical exam. Your health care provider may press on the right side of your abdomen to feel your liver. This is a way to check if the edge of your liver sticks out below your rib cage. You may also have other tests, including: Blood tests. These tests check whether your liver is working properly. Tests may also check for infection. Imaging tests, such as: ?CT scan. ?MRI. ?Ultrasound. Liver biopsy. For this test, a small sample of liver tissue is removed to be looked at under a microscope. How is this treated? Treatment for hepatomegaly depends on the cause of your condition. Follow these instructions at home: What you need to do at home depends on what is causing the condition. You may be asked to follow these instructions. Medicines Take fxrs-sij-ojjwntp and prescription medicines only as told by your health care provider. Do not start taking any new medicine unless your health care provider has approved. These include uctw-zra-vqwzveb medicines, vitamins, herbs, and supplements. Some of these can hurt your liver. General instructions Maintain a healthy weight. Follow a healthy diet. Eat plenty of fruits, vegetables, and whole grains. Do not drink alcohol. Do not use any products that contain nicotine or tobacco. These products include cigarettes, chewing tobacco, and vaping devices, such as e-cigarettes. If you need help quitting, ask your health careprovider. Keep all follow-up visits. This is important. Contact a health care provider if: You have increased pain in your abdomen. You have persistent vomiting. You have new symptoms. Your symptoms get worse. Get help right away if: You have bright red blood in your vomit, or your vomit looks like coffee grounds. You have chest pain. You have trouble breathing. These symptoms may be an emergency. Get help right away. Call 911. Do not wait to see if the symptoms will go away. Do not drive yourself to the hospital. Summary Hepatomegaly is when a person's liver is larger than normal. Symptoms of this condition include pain in the abdomen, fatigue, loss of appetite, nausea, vomiting, and jaundice. This condition may be diagnosed with your medical history, a physical exam, and tests. Follow instructions about how to care for yourself at home. Get help right away if you vomit blood, have chest pain, or have trouble breathing. This information is not intended to replace advice given to you by your health care provider. Make sure you discuss any questions you have with your health care provider. Document Revised: 05/19/2022 Document Reviewed: 05/19/2022 [employer] Patient Education 2022 [employer]. 11/24/2023 19:09:12 Hepatomegaly Hepatomegaly Hepatomegaly is when a person's liver is larger than normal. Some health problems can cause the liver to get bigger. Some people may have an enlarged liver but do not know it. What are the causes? This condition may be caused by: Cirrhosis. This is long-term (chronic) liver damage that is often caused by drinking too much alcohol. Cirrhosis is also caused by certain diseases, infection, and some medicines. Hepatitis. This is an infection of the liver. Fatty liver disease. Conditions that cause minerals or trace elements to accumulate in the liver, such as Eliezer disease. Cancer. The disease may start in the liver or start somewhere else in the body and spread to the liver. Heart or blood vessel disease. These can cause hepatomegaly if blood backs up into the liver. In some cases, the cause of the condition is not known. What increases the risk? You are more likely to develop this condition if you: Drink too much alcohol. Have diabetes. Are obese. Are exposed to hepatitis B or hepatitis C. What are the signs or symptoms? Symptoms of this condition include: Abdominal pain on the right side. Fatigue. Loss of appetite. Nausea. Vomiting. The skin or the white parts of your eyes turning yellow (jaundice). In some cases, there are no symptoms of this condition. How is this diagnosed? This condition may be diagnosed with your medical history and a physical exam. Your health care provider may press on the right side of your abdomen to feel your liver. This is a way to check if the edge of your liver sticks out below your rib cage. You may also have other tests, including: Blood tests. These tests check whether your liver is working properly. Tests may also check for infection. Imaging tests, such as: ?CT scan. ?MRI. ?Ultrasound. Liver biopsy. For this test, a small sample of liver tissue is removed to be looked at under a microscope. How is this treated? Treatment for hepatomegaly depends on the cause of your condition. Follow these instructions at home: What you need to do at home depends on what is causing the condition. You may be asked to follow these instructions. Medicines Take haee-dfn-ukgkhaj and prescription medicines only as told by your health care provider. Do not start taking any new medicine unless your health care provider has approved. These include hgjk-mjp-lwvzbpd medicines, vitamins, herbs, and supplements. Some of these can hurt your liver. General instructions Maintain a healthy weight. Follow a healthy diet. Eat plenty of fruits, vegetables, and whole grains. Do not drink alcohol. Do not use any products that contain nicotine or tobacco. These products include cigarettes, chewing tobacco, and vaping devices, such as e-cigarettes. If you need help quitting, ask your health careprovider. Keep all follow-up visits. This is important. Contact a health care provider if: You have increased pain in your abdomen. You have persistent vomiting. You have new symptoms. Your symptoms get worse. Get help right away if: You have bright red blood in your vomit, or your vomit looks like coffee grounds. You have chest pain. You have trouble breathing. These symptoms may be an emergency. Get help right away. Call 911. Do not wait to see if the symptoms will go away. Do not drive yourself to the hospital. Summary Hepatomegaly is when a person's liver is larger than normal. Symptoms of this condition include pain in the abdomen, fatigue, loss of appetite, nausea, vomiting, and jaundice. This condition may be diagnosed with your medical history, a physical exam, and tests. Follow instructions about how to care for yourself at home. Get help right away if you vomit blood, have chest pain, or have trouble breathing. This information is not intended to replace advice given to you by your health care provider. Make sure you discuss any questions you have with your health care provider. Document Revised: 05/19/2022 Document Reviewed: 05/19/2022 [employer] Patient Education 2022 [employer] 11/24/2023 19:09:07 Type 2 Diabetes Mellitus, Self-Care, Adult Type 2 Diabetes Mellitus, Self-Care, Adult Caring for yourself after you have been diagnosed with type 2 diabetes (type 2 diabetes mellitus) means keeping your blood sugar (glucose) under control with a balance of: Nutrition. Exercise. Lifestyle changes. Medicines or insulin, if needed. Support from your team of health care providers and others. What are the risks? Having type 2 diabetes can put you at risk for other long-term (chronic) conditions, such as heart disease and kidney disease. Your health care provider may prescribe medicines to help prevent complications from diabetes. How to monitor your blood glucose Check your blood glucose every day or as often as told by your health care provider. Have your A1C (hemoglobin A1C) level checked two or more times a year, or as often as told by your health care provider. Your health care provider will set personalized treatment goals for you. Generally, the goal of treatment is to maintain the following blood glucose levels: ?Before meals: 80 130 mg/dL (4.4 7.2 mmol/L). ?After meals: below 180 mg/dL (10 mmol/L). ?A1C level: less than 7%. How to manage hyperglycemia and hypoglycemia Hyperglycemia symptoms Hyperglycemia, also called high blood glucose, occurs when blood glucose is too high. Make sure youknow the early signs of hyperglycemia, such as: Increased thirst. Hunger. Feeling very tired. Needing to urinate more often than usual. Blurry vision. Hypoglycemia symptoms Hypoglycemia, also called low blood glucose, occurs with a blood glucose level at or below 70 mg/dL(3.9 mmol/L). Diabetes medicines lower your blood glucose and can cause hypoglycemia. The risk for hypoglycemia increases during or after exercise, during sleep, during illness, and when skipping meals or not eating for a long time (fasting). It is important to know the symptoms of hypoglycemia and treat it right away. Always have a 85-bncgruzlw-qlcywt carbohydrate snack with you to treat low blood glucose. Family members and close friends should also know the symptoms and understand how to treat hypoglycemia, in case you are not able to treat yourself. Symptoms may include: Hunger. Anxiety. Sweating and feeling clammy. Dizziness or feeling light-headed. Sleepiness. Increased heart rate. Irritability. Tingling or numbness around the mouth, lips, or tongue. Restless sleep. Severe hypoglycemia is when your blood glucose level is at or below 54 mg/dL (3 mmol/L). Severe hypoglycemia is an emergency. Do not wait to see if the symptoms will go away. Get medical help right away. Call your local emergency services (911 in the [place] Do not drive yourself to the hospital. If you have severe hypoglycemia and you cannot eat or drink, you may need glucagon. A family memberor close friend should learn how to check your blood glucose and how to give you glucagon. Ask yourhealth care provider if you need to have an emergency glucagon kit available. Follow these instructions at home: Medicines Take prescribed insulin or diabetes medicines as told by your health care provider. Do not run out of insulin or other diabetes medicines. Plan ahead so you always have these available. If you use insulin, adjust your dosage based on your physical activity and what foods you eat. Yourhealth care provider will tell you how to adjust your dosage. Take okqw-fbo-rqgriro and prescription medicines only as told by your health care provider. Eating and drinking What you eat and drink affects your blood glucose and your insulin dosage. Making good choices helps to control your diabetes and prevent other health problems. A healthy meal plan includes eating lean proteins, complex carbohydrates, fresh fruits and vegetables, low-fat dairy products, and healthy fats. Make an appointment to see a registered dietitian to help you create an eating plan that is right for you. Make sure that you: Follow instructions from your health care provider about eating or drinking restrictions. Drink enough fluid to keep your urine pale yellow. Keep a record of the carbohydrates that you eat. Do this by reading food labels and learning the standard serving sizes of foods. Follow your sick-day plan whenever you cannot eat or drink as usual. Make this plan in advance withyour health care provider. Activity Stay active. Exercise regularly, as told by your health care provider. This may include: ?Stretching and doing strength exercises, such as yoga or weight lifting, two or more times a week. ?Doing 150 minutes or more of moderate-intensity or vigorous-intensity exercise each week. This could be brisk walking, biking, or water aerobics. ?Spread out your activity over 3 or more days of the week. ?Do not go more than 2 days in a row without doing some kind of physical activity. When you start a new exercise or activity, work with your health care provider to adjust your insulin, medicines, or food intake as needed. Lifestyle Do not use any products that contain nicotine or tobacco. These products include cigarettes, chewing tobacco, and vaping devices, such as e-cigarettes. If you need help quitting, ask your health careprovider. If you drink alcohol and your health care provider says that it is safe for you: ?Limit how much you have to: ?0 1 drink a day for women who are not . ?0 2 drinks a day for men. ?Know how much alcohol is in your drink. In the [place] one drink equals one 12 oz bottle of beer (355 mL), one 5 oz glass of wine (148 mL), or one 1 oz glass of hard liquor (44 mL). Learn to manage stress. If you need help with this, ask your health care provider. Take care of your body Keep your immunizations up to date. In addition to getting vaccinations as told by your health careprovider, it is recommended that you get vaccinated against the following illnesses: ?The flu (influenza). Get a flu shot every year. ?Pneumonia. ?Hepatitis B. Schedule an eye exam soon after your diagnosis, and then one time every year after that. Check your skin and feet every day for cuts, bruises, redness, blisters, or sores. Schedule a foot exam with your health care provider once every year. [place] your teeth and gums two times a day, and floss one or more times a day. Visit your dentist one or more times every 6 months. Maintain a healthy weight. General instructions Share your diabetes management plan with people in your workplace, school, and household. Carry a medical alert card or wear medical alert jewelry. Keep all follow-up visits. This is important. Questions to ask your health care provider Should I meet with a certified diabetes care and adult secondary education instructor? Where can I find a support group for people with diabetes? Where to find more information For help and guidance and for more information about diabetes, please visit: [place] Diabetes Association (ADA): www.diabetes.org [place] Association of Diabetes Care and Education Specialists (ADCES): www.diabeteseducator.org International Diabetes Federation (IDF): www.idf.org Summary Caring for yourself after you have been diagnosed with type 2 diabetes (type 2 diabetes mellitus) means keeping your blood sugar (glucose) under control with a balance of nutrition, exercise, lifestyle changes, and medicine. Check your blood glucose every day, as often as told by your health care provider. Having diabetes can put you at risk for other long-term (chronic) conditions, such as heart diseaseand kidney disease. Your health care provider may prescribe medicines to help prevent complicationsfrom diabetes. Share your diabetes management plan with people in your workplace, school, and household. Keep all follow-up visits. This is important. This information is not intended to replace advice given to you by your health care provider. Make sure you discuss any questions you have with your health care provider. Document Revised: 11/18/2021 Document Reviewed: 11/18/2021 [employer] Patient Education 2022 [employer]. 11/24/2023 19:09:06 Mediterranean Diet Mediterranean Diet A Mediterranean diet refers to food and lifestyle choices that are based on the traditions of countries located on the [place] Sea. It focuses on eating more fruits, vegetables, whole grains, beans, nuts, seeds, and heart-healthy fats, and eating less dairy, meat, eggs, and processed foods with added sugar, salt, and fat. This way of eating has been shown to help prevent certain conditions and improve outcomes for people who have chronic diseases, like kidney disease and heart disease. What are tips for following this plan? Reading food labels Check the serving size of packaged foods. For foods such as rice and pasta, the serving size refersto the amount of cooked product, not dry. Check the total fat in packaged foods. Avoid foods that have saturated fat or trans fats. Check the ingredient list for added sugars, such as corn syrup. Shopping Buy a variety of foods that offer a balanced diet, including: ?Fresh fruits and vegetables (produce). ?Grains, beans, nuts, and seeds. Some of these may be available in unpackaged forms or large amounts (in bulk). ?Fresh seafood. ?Poultry and eggs. ?Low-fat dairy products. Buy whole ingredients instead of prepackaged foods. Buy fresh fruits and vegetables in-season from local farmers markets. Buy plain frozen fruits and vegetables. If you do not have access to quality fresh seafood, buy precooked frozen shrimp or canned fish, such as tuna, salmon, or sardines. Stock your pantry so you always have certain foods on hand, such as olive oil, canned tuna, canned tomatoes, rice, pasta, and beans. Cooking Cook foods with extra-virgin olive oil instead of using butter or other vegetable oils. Have meat as a side dish, and have vegetables or grains as your main dish. This means having meat in small portions or adding small amounts of meat to foods like pasta or stew. Use beans or vegetables instead of meat in common dishes like chili or lasagna. [place] with different cooking methods. Try roasting, broiling, steaming, and saut ing vegetables. Add frozen vegetables to soups, stews, pasta, or rice. Add nuts or seeds for added healthy fats and plant protein at each meal. You can add these to yogurt, salads, or vegetable dishes. Marinate fish or vegetables using olive oil, lemon juice, garlic, and fresh herbs. Meal planning Plan to eat one vegetarian meal one day each week. Try to work up to two vegetarian meals, if possible. Eat seafood two or more times a week. Have healthy snacks readily available, such as: ?Vegetable sticks with hummus. ?[place] yogurt. ?Fruit and nut trail mix. Eat balanced meals throughout the week. This includes: ?Fruit: 2 3 servings a day. ?Vegetables: 4 5 servings a day. ?Low-fat dairy: 2 servings a day. ?Fish, poultry, or lean meat: 1 serving a day. ?Beans and legumes: 2 or more servings a week. ?Nuts and seeds: 1 2 servings a day. ?Whole grains: 6 8 servings a day. ?Extra-virgin olive oil: 3 4 servings a day. Limit red meat and sweets to only a few servings a month. Lifestyle Cook and eat meals together with your family, when possible. Drink enough fluid to keep your urine pale yellow. Be physically active every day. This includes: ?Aerobic exercise like running or swimming. ?Leisure activities like gardening, walking, or housework. Get 7 8 hours of sleep each night. If recommended by your health care provider, drink red wine in moderation. This means 1 glass a dayfor non women and 2 glasses a day for men. A glass of wine equals 5 oz (150 mL). What foods should I eat? Fruits Apples. Apricots. Avocado. Berries. Bananas. Cherries. Dates. Figs. Grapes. [place]ilah. Melon. Oranges.Peaches. Plums. Pomegranate. Vegetables Artichokes. Beets. Broccoli. Cabbage. Carrots. Eggplant. Green beans. Chard. Kale. Spinach. Onions.Leeks. Peas. Squash. Tomatoes. Peppers. Radishes. Grains Whole-grain pasta. Brown rice. Bulgur wheat. Polenta. Couscous. Whole-wheat bread. Oatmeal. Quinoa. Meats and other proteins Beans. Almonds. [place] seeds. [place] nuts. Peanuts. Cod. [place]. Scallops. Shrimp. Tuna. Tilapia. Clams. Oysters. Eggs. Poultry without skin. Dairy Low-fat milk. Cheese. [place] yogurt. Fats and oils Extra-virgin olive oil. Avocado oil. Grapeseed oil. Beverages Water. Red wine. Herbal tea. Sweets and desserts [place] yogurt with honey. Baked apples. Poached pears. [place] mix. Seasonings and condiments Basil. Cilantro. Coriander. Cumin. Mint. Parsley. Jose. [place]. Tarragon. Garlic. Oregano. Thyme.Pepper. Balsamic vinegar. Tahini. Hummus. Tomato sauce. Olives. Mushrooms. The items listed above may not be a complete list of foods and beverages you can eat. Contact a dietitian for more information. What foods should I limit? This is a list of foods that should be eaten rarely or only on special occasions. Fruits Fruit canned in syrup. Vegetables Deep-fried potatoes ([place] citizen fries). Grains Prepackaged pasta or rice dishes. Prepackaged cereal with added sugar. Prepackaged snacks with added sugar. Meats and other proteins Beef. Pork. [place]. Poultry with skin. Hot dogs. [place]. Dairy Ice cream. Sour cream. Whole milk. Fats and oils Butter. Canola oil. Vegetable oil. Beef fat (tallow). Lard. Beverages Juice. Sugar-sweetened soft drinks. Beer. Liquor and spirits. Sweets and desserts Cookies. Cakes. Pies. Candy. Seasonings and condiments Mayonnaise. Pre-made sauces and marinades. The items listed above may not be a complete list of foods and beverages you should limit. Contact a dietitian for more information. Summary The Mediterranean diet includes both food and lifestyle choices. Eat a variety of fresh fruits and vegetables, beans, nuts, seeds, and whole grains. Limit the amount of red meat and sweets that you eat. If recommended by your health care provider, drink red wine in moderation. This means 1 glass a dayfor non women and 2 glasses a day for men. A glass of wine equals 5 oz (150 mL). This information is not intended to replace advice given to you by your health care provider. Make sure you discuss any questions you have with your health care provider. Document Revised: 07/25/2020 Document Reviewed: 05/22/2020 [employer] Patient Education 2022 [employer]. Follow Up Care 10/26/2023 14:06:56 With:Yocasta SMITH, CREDIT COLLECTIONS CLERK-UPPER MARKER, Myron Hamilton Address: [address] [place] [phone] When:Within 3 Month(s) Comments:chronic care [facility] [place] 05-09-2024 NoteEchocardiology Procedure Exam Date/Time Accession # Ordering Dr. Ferrer Transthoracic 11/08/2023 15:28 EDT [id number] Adam SAMPSON, Alirio Hooper CPT code 02121 47037 Reason for Exam (Echo Transthoracic Complete) I50.30;Other (please specify) Report [facility] [address] [place] [address] Adult Echocardiogram Report Name: CARMEN BLEDSOE Study Date: 11/08/2023 02:50 PM BP: 128/85 mmHg Patient [place] [id number] [facility] [place] 66 : 1960 Gender: Female Height: 6 in Age: 62 yrs Ethnicity: [facility] Weight: 328 lb Reason For Study: CHF BSA: 0.43 m2 History: High Cholesterol,HTN,Smoker-Yes,Morbid obesity Ordering Physician: Adam^Alirio^D. Referring Physician: Alirio Ramirez Performed By: Philomena Gusman, ALFMS, RVT Interpretation Summary Grossly normal LV and RV. No significant valve disease. Cannot exclude regional wall motion abnormality. No estimated PA pressure. Impaired diastolic relaxation. Procedure A complete two-dimensional transthoracic echocardiogram was performed (2D, M- mode, spectral and color flow Doppler). Study quality is poor. Limited views were obtained. Left Ventricle The left ventricle is normal in size. There is normal left ventricular wall thickness. Ejection Fraction = 60-65%. The left ventricular wall motion is normal. Grade I diastolic dysfunction, (abnormal relaxation pattern). Left Atrium The left atrial size is normal. Right Atrium Right atrial size is normal. Echocardiology Report Right Ventricle The right ventricular systolic function is normal. The right ventricle is normal size. The right ventricular wall motion is normal. Aortic Valve The aortic valve is trileaflet. No aortic regurgitation. There is no aortic stenosis. Mitral Valve The mitral valve is normal in structure and function. There is no mitral regurgitation noted. No mitral valve stenosis. Tricuspid Valve Structurally normal tricuspid valve. No evidence of tricuspid regurgitation. Right ventricular systolic pressure is normal. Pulmonic Valve No evidence of stenosis. There is no pulmonic valve regurgitation. Arteries The aortic root is normal in size. Normal ascending aorta. Pulmonary artery diameter is normal. Venous The inferior vena cava is normal in size, and collapses normally with respiration. Effusion There is no pericardial effusion. MMode/2D Measurements & Calculations RVDd: 3.3 cm LVIDd: 4.9 cm FS: 31.3 % Ao root diam: 3.5 cm IVSd: 1.2 cm LVIDs: 3.4 cm EDV(Teich): 114.4 ml Ao root area: 9.8 cm2 LVPWd: 1.2 cm ESV(Teich): 47.0 ml LA dimension: 4.8 cm EF(Teich): 58.9 % asc Aorta Diam: 4.3 cm LVOT diam: 3.2 cm LVLd ap4: 7.6 cm SV(MOD-sp4): 53.7 ml LVOT area: 8.1 cm2 EDV(MOD-sp4): 91.9 ml LVLs ap4: 6.6 cm ESV(MOD-sp4): 38.2 ml EF(MOD-sp4): 58.4 % TAPSE: 2.5 cm RV Base_phl: 3.7 cm RVIDd/LVIDd: 0.67 RV Length_phl: 7.7 cm RV Mid_phl: 4.3 cm Doppler Measurements & Calculations MV E max jairon: 69.7 cm/sec MV dec time: 0.23 sec Ao V2 max: 134.0 cm/sec LV V1 max P.9 mmHg MV A max jairon: 73.4 cm/sec Ao max P.2 mmHg LV V1 mean P.0 mmHg MV E/A: 0.95 Ao V2 mean: 89.0 cm/sec LV V1 max: 85.4 cm/sec Lat Peak E' Jairon: 8.6 cm/sec Ao mean P.0 mmHg LV V1 mean: 55.5 cm/sec E/E' Lat: 8.1 Ao V2 VTI: 24.7 cm LV V1 VTI: 17.7 cm Echocardiology Report Med Peak E' Jairon: 7.7 cm/sec FLAVIA(I,D): 5.8 cm2 E/E' Med: 9.0 FLAVIA(V,D): 5.1 cm2 SV(LVOT): 142.7 ml AV VR: 0.64 FLAVIA(VTI)/BSA_phl: 13.4 FINAL REPORT Dictated: 11/08/2023 2:50 pm Alirio Ramirez MD Signed (Electronic Signature): 11/10/2023 10:36 am Signed by: Alirio Ramirez MD Transcribed by: [facility] Technologist: [facility]04-24-2024 Hospital Discharge instructions Patient Education 10/26/2023 08:53:49 Peripheral Edema Peripheral Edema Peripheral edema is swelling that is caused by a buildup of fluid. Peripheral edema most often affects the lower legs, ankles, and feet. It can also develop in the arms, hands, and face. The area of the body that has peripheral edema will look swollen. It may also feel heavy or warm. Your clothes may start to feel tight. Pressing on the area may make a temporary dent in your skin (pitting edema).You may not be able to move your swollen arm or leg as much as usual. There are many causes of peripheral edema. It can happen because of a complication of other conditions such as heart failure, kidney disease, or a problem with your circulation. It also can be a sideeffect of certain medicines or happen because of an infection. It often happens to women during . Sometimes, the cause is not known. Follow these instructions at home: Managing pain, stiffness, and swelling Raise (elevate) your legs while you are sitting or lying down. Move around often to prevent stiffness and to reduce swelling. Do not sit or stand for long periods of time. Do not wear tight clothing. Do not wear garters on your upper legs. Exercise your legs to get your circulation going. This helps to move the fluid back into your bloodvessels, and it may help the swelling go down. Wear compression stockings as told by your health care provider. These stockings help to prevent blood clots and reduce swelling in your legs. It is important that these are the correct size. These stockings should be prescribed by your doctor to prevent possible injuries. If elastic bandages or wraps are recommended, use them as told by your health care provider. Medicines Take mjkq-ugy-gjxhxrf and prescription medicines only as told by your health care provider. Your health care provider may prescribe medicine to help your body get rid of excess water (diuretic). Take this medicine if you are told to take it. General instructions Eat a low-salt (low-sodium) diet as told by your health care provider. Sometimes, eating less salt may reduce swelling. Pay attention to any changes in your symptoms. Moisturize your skin daily to help prevent skin from cracking and draining. Keep all follow-up visits. This is important. Contact a health care provider if: You have a fever. You have swelling in only one leg. You have increased swelling, redness, or pain in one or both of your legs. You have drainage or sores at the area where you have edema. Get help right away if: You have edema that starts suddenly or is getting worse, especially if you are or have a medical condition. You develop shortness of breath, especially when you are lying down. You have pain in your chest or abdomen. You feel weak. You feel like you will faint. These symptoms may be an emergency. Get help right away. Call 911. Do not wait to see if the symptoms will go away. Do not drive yourself to the hospital. Summary Peripheral edema is swelling that is caused by a buildup of fluid. Peripheral edema most often affects the lower legs, ankles, and feet. Move around often to prevent stiffness and to reduce swelling. Do not sit or stand for long periodsof time. Pay attention to any changes in your symptoms. Contact a health care provider if you have edema that starts suddenly or is getting worse, especially if you are or have a medical condition. Get help right away if you develop shortness of breath, especially when lying down. This information is not intended to replace advice given to you by your health care provider. Make sure you discuss any questions you have with your health care provider. Document Revised: 02/22/2022 Document Reviewed: 02/22/2022 [employer] Patient Education 2022 [employer]. 10/26/2023 08:53:45 Heart Failure, Self-Care Heart Failure, Self-Care Heart failure is a serious condition. The following information explains the things you need to do to take care of yourself after a heart failure diagnosis. You may be asked to change your diet, takecertain medicines, and make other lifestyle changes in order to stay as healthy as possible. Your health care provider may also give you more specific instructions. If you have problems or questions,contact your health care provider. What are the risks? Having heart failure puts you at higher risk for certain problems. These problems can get worse if you do not take good care of yourself. Problems may include: Damage to the kidneys, liver, or lungs. Malnutrition. Abnormal heart rhythms. Blood clotting issues that could cause a stroke. Supplies needed: Scale for monitoring weight. Blood pressure monitor. Notebook. Medicines. How to care for yourself when you have heart failure Medicines Take ldle-rml-aqehsrp and prescription medicines only as told by your health care provider. Medicines reduce the workload of your heart, slow the progression of heart failure, and improve symptoms. Take your medicines every day. Do not stop taking your medicine unless your health care provider tells you to do so. Do not skip any dose of medicine. Refill your prescriptions before you run out of medicine. Talk with your health care provider if you cannot afford your medicines. Eating and drinking Eat heart-healthy foods. Talk with a dietitian to make an eating plan that is right for you. ?Limit salt (sodium) if told by your health care provider. Sodium restriction may reduce symptoms of heart failure. Ask a dietitian to recommend heart-healthy seasonings. ?Use healthy cooking methods instead of frying. Healthy methods include roasting, grilling, broiling, baking, poaching, steaming, and stir-frying. ?Choose foods that contain no trans fat and are low in saturated fat and cholesterol. Healthy choices include fresh or frozen fruits and vegetables, fish, lean meats, legumes, fat-free or low-fat dairy products, and whole-grain or high-fiber foods. Limit your fluid intake, if directed by your health care provider. Fluid restriction may reduce symptoms of heart failure. Alcohol use Do not drink alcohol if: ?Your health care provider tells you not to drink. ?Your heart was damaged by alcohol, or you have severe heart failure. ?You are , may be , or are planning to become . If you drink alcohol: ?Limit how much you have to: ?0 1 drink a day for women. ?0 2 drinks a day for men. ?Know how much alcohol is in your drink. In the [place] one drink equals one 12 oz bottle of beer (355 mL), one 5 oz glass of wine (148 mL), or one 1 oz glass of hard liquor (44 mL). Lifestyle Do not use any products that contain nicotine or tobacco. These products include cigarettes, chewing tobacco, and vaping devices, such as e-cigarettes. If you need help quitting, ask your health careprovider. ?Do not use nicotine gum or patches before talking to your health care provider. Do not use illegal drugs. Work with your health care provider to safely reach the right body weight. Do physical activity if told by your health care provider. Talk to your health care provider beforeyou begin an exercise if: ?You are an older adult. ?You have severe heart failure. Learn to manage stress. If you need help to do this, ask your health care provider. Participate in or seek physical rehabilitation as needed to keep or improve your independence and quality of life. Participate in a cardiac rehabilitation program, which is a treatment program to improve your health and well-being through exercise training, education, and counseling. Plan rest periods when you get tired. Monitoring important information Weigh yourself every day. This will help you to notice if too much fluid is building up in your body. ?Weigh yourself every morning after you urinate and before you eat breakfast. ?Wear the same amount of clothing each time you weigh yourself. ?Record your daily weight. Provide your health care provider with your weight record. Monitor and record your pulse and blood pressure as told by your health care provider. Dealing with extreme temperatures If the weather is extremely hot: ?Avoid vigorous physical activity. ?Use air conditioning or fans, or find a cooler location. ?Avoid caffeine and alcohol. ?Wear loose-fitting, lightweight, and light-colored clothing. If the weather is extremely cold: ?Avoid vigorous activity. ?Layer your clothes. ?Wear mittens or gloves, a hat, and a face covering when you go outside. ?Avoid alcohol. Follow these instructions at home: Stay up to date with vaccines. Pneumococcal and flu (influenza) vaccines are especially important in preventing infections of the airways. Keep all follow-up visits. This is important. Contact a health care provider if you: Gain 2 3 lb (1 1.4 kg) in 24 hours or 5 lb (2.3 kg) in a week. Have increasing shortness of breath. Are unable to participate in your usual physical activities. Get tired easily. Cough more than normal, especially with physical activity. Lose your appetite or feel nauseous. Have any swelling or more swelling in areas such as your hands, feet, ankles, or abdomen. Are unable to sleep because it is hard to breathe. Feel like your heart is beating quickly (palpitations). Become dizzy or light-headed when you stand up. Have feelings of depression or sadness. Get help right away if you: Have trouble breathing. Notice, or your family notices, a change in your awareness, such as having trouble staying awake orconcentrating. Have pain or discomfort in your chest. Have an episode of fainting (syncope). These symptoms may represent a serious problem that is an emergency. Do not wait to see if the symptoms will go away. Get medical help right away. Call your local emergency services (911 in the [place] Do not drive yourself to the hospital. Summary Heart failure is a serious condition. To care for yourself, you may be asked to change your diet, take certain medicines, and make other lifestyle changes. Take your medicines every day. Do not stop taking them unless your health care provider tells you to do so. Limit salt and eat heart-healthy foods, such as fresh or frozen fruits and vegetables, fish, lean meats, legumes, fat-free or low-fat dairy products, and whole-grain or high-fiber foods. Ask your health care provider if you have any alcohol restrictions. You may have to stop drinking alcohol if you have severe heart failure. Contact your health care provider if you notice problems, such as rapid weight gain or a fast heartbeat. Get help right away if you faint or have chest pain or trouble breathing. This information is not intended to replace advice given to you by your health care provider. Make sure you discuss any questions you have with your health care provider. Document Revised: 09/28/2022 Document Reviewed: 01/10/2021 [employer] Patient Education 2022 [employer]. 10/26/2023 08:53:36 DASH Eating Plan DASH Eating Plan DASH stands for Dietary Approaches to Stop Hypertension. The DASH eating plan is a healthy eating plan that has been shown to: Reduce high blood pressure (hypertension). Reduce your risk for type 2 diabetes, heart disease, and stroke. Help with weight loss. What are tips for following this plan? Reading food labels Check food labels for the amount of salt (sodium) per serving. Choose foods with less than 5 percent of the Daily Value of sodium. Generally, foods with less than 300 milligrams (mg) of sodium per serving fit into this eating plan. To find whole grains, look for the word whole as the first word in the ingredient list. Shopping Buy products labeled as low-sodium or no salt added. Buy fresh foods. Avoid canned foods and pre-made or frozen meals. Cooking Avoid adding salt when cooking. Use salt-free seasonings or herbs instead of table salt or sea salt. Check with your health care provider or pharmacist before using salt substitutes. Do not hodges foods. Cook foods using healthy methods such as baking, boiling, grilling, roasting, andbroiling instead. Cook with heart-healthy oils, such as olive, canola, avocado, soybean, or sunflower oil. Meal planning Eat a balanced diet that includes: ?4 or more servings of fruits and 4 or more servings of vegetables each day. Try to fill one-half of your plate with fruits and vegetables. ?6 8 servings of whole grains each day. ?Less than 6 oz (170 g) of lean meat, poultry, or fish each day. A 3-oz (85-g) serving of meat is about the same size as a deck of cards. One egg equals 1 oz (28 g). ?2 3 servings of low-fat dairy each day. One serving is 1 cup (237 mL). ?1 serving of nuts, seeds, or beans 5 times each week. ?2 3 servings of heart-healthy fats. Healthy fats called omega-3 fatty acids are found in foods such as walnuts, flaxseeds, fortified milks, and eggs. These fats are also found in cold-water fish, such as sardines, salmon, and mackerel. Limit how much you eat of: ?Canned or prepackaged foods. ?Food that is high in trans fat, such as some fried foods. ?Food that is high in saturated fat, such as fatty meat. ?Desserts and other sweets, sugary drinks, and other foods with added sugar. ?Full-fat dairy products. Do not salt foods before eating. Do not eat more than 4 egg yolks a week. Try to eat at least 2 vegetarian meals a week. Eat more home-cooked food and less restaurant, buffet, and fast food. Lifestyle When eating at a restaurant, ask that your food be prepared with less salt or no salt, if possible. If you drink alcohol: ?Limit how much you use to: ?0 1 drink a day for women who are not . ?0 2 drinks a day for men. ?Be aware of how much alcohol is in your drink. In the [place] one drink equals one 12 oz bottle of beer (355 mL), one 5 oz glass of wine (148 mL), or one 1 oz glass of hard liquor (44 mL). General information Avoid eating more than 2,300 mg of salt a day. If you have hypertension, you may need to reduce your sodium intake to 1,500 mg a day. Work with your health care provider to maintain a healthy body weight or to lose weight. Ask what an ideal weight is for you. Get at least 30 minutes of exercise that causes your heart to beat faster (aerobic exercise) most days of the week. Activities may include walking, swimming, or biking. Work with your health care provider or dietitian to adjust your eating plan to your individual calorie needs. What foods should I eat? Fruits All fresh, dried, or frozen fruit. Canned fruit in natural juice (without added sugar). Vegetables Fresh or frozen vegetables (raw, steamed, roasted, or grilled). Low-sodium or reduced-sodium tomatoand vegetable juice. Low-sodium or reduced-sodium tomato sauce and tomato paste. Low-sodium or reduced-sodium canned vegetables. Grains Whole-grain or whole-wheat bread. Whole-grain or whole-wheat pasta. Brown rice. Oatmeal. Quinoa. Bulgur. Whole-grain and low-sodium cereals. Emma bread. Low- fat, low-sodium crackers. Whole-wheat flour tortillas. Meats and other proteins Skinless chicken or turkey. Ground chicken or turkey. Pork with fat trimmed off. Fish and seafood. Egg whites. Dried beans, peas, or lentils. Unsalted nuts, nut butters, and seeds. Unsalted canned beans. Lean cuts of beef with fat trimmed off. Low-sodium, lean precooked or cured meat, such as sausages or meat loaves. Dairy Low-fat (1%) or fat-free (skim) milk. Reduced-fat, low-fat, or fat-free cheeses. Nonfat, low-sodiumricotta or cottage cheese. Low-fat or nonfat yogurt. Low-fat, low-sodium cheese. Fats and oils Soft margarine without trans fats. Vegetable oil. Reduced-fat, low-fat, or light mayonnaise and salad dressings (reduced-sodium). Canola, safflower, olive, avocado, soybean, and sunflower oils. Avocado. Seasonings and condiments Herbs. Spices. Seasoning mixes without salt. Other foods Unsalted popcorn and pretzels. Fat-free sweets. The items listed above may not be a complete list of foods and beverages you can eat. Contact a dietitian for more information. What foods should I avoid? Fruits Canned fruit in a light or heavy syrup. Fried fruit. Fruit in cream or butter sauce. Vegetables Creamed or fried vegetables. Vegetables in a cheese sauce. Regular canned vegetables (not low-sodium or reduced-sodium). Regular canned tomato sauce and paste (not low-sodium or reduced-sodium). Regular tomato and vegetable juice (not low-sodium or reduced-sodium). Pickles. Olives. Grains Baked goods made with fat, such as croissants, muffins, or some breads. Dry pasta or rice meal packs. Meats and other proteins Fatty cuts of meat. Ribs. Fried meat. Manjarrez. Bologna, salami, and other precooked or cured meats, such as sausages or meat loaves. Fat from the back of a pig (fatback). Bratwurst. Salted nuts and seeds. Canned beans with added salt. Canned or smoked fish. Whole eggs or egg yolks. Chicken or turkey with skin. Dairy Whole or 2% milk, cream, and ekrh-nsf-fxuf. Whole or full-fat cream cheese. Whole-fat or sweetened yogurt. Full-fat cheese. Nondairy creamers. Whipped toppings. Processed cheese and cheese spreads. Fats and oils Butter. Stick margarine. Lard. Shortening. Ghee. Manjarrez fat. Tropical oils, such as coconut, palm kernel, or palm oil. Seasonings and condiments Onion salt, garlic salt, seasoned salt, table salt, and sea salt. Worcestershire sauce. Tartar sauce. Barbecue sauce. Teriyaki sauce. Soy sauce, including reduced-sodium. Steak sauce. Canned and packaged gravies. Fish sauce. Oyster sauce. Cocktail sauce. Store-bought horseradish. Ketchup. Mustard. Meat flavorings and tenderizers. Bouillon cubes. Hot sauces. Pre-made or packaged marinades. Pre-made or packaged taco seasonings. Relishes. Regular salad dressings. Other foods Salted popcorn and pretzels. The items listed above may not be a complete list of foods and beverages you should avoid. Contact a dietitian for more information. Where to find more information National Heart, Lung, and Blood [place]: www.nhlbi.nih.gov [employer]: www.heart.org Academy of Nutrition and Dietetics: www.eatright.org National Kidney Foundation: www.kidney.org Summary The DASH eating plan is a healthy eating plan that has been shown to reduce high blood pressure (hypertension). It may also reduce your risk for type 2 diabetes, heart disease, and stroke. When on the DASH eating plan, aim to eat more fresh fruits and vegetables, whole grains, lean proteins, low-fat dairy, and heart-healthy fats. With the DASH eating plan, you should limit salt (sodium) intake to 2,300 mg a day. If you have hypertension, you may need to reduce your sodium intake to 1,500 mg a day. Work with your health care provider or dietitian to adjust your eating plan to your individual calorie needs. This information is not intended to replace advice given to you by your health care provider. Make sure you discuss any questions you have with your health care provider. Document Revised: 05/23/2020 Document Reviewed: 05/23/2020 [employer] Patient Education 2022 [employer]. Follow Up Care 10/11/2023 15:08:26 With:Yocasta SMITH, CREDIT COLLECTIONS CLERK-UPPER MARKER, Myron Hamilton Address: [address] [place] [phone] When:Within 1 Month(s) [facility] [place] 04-08-2024 Hospital Discharge instructions Patient Education 10/10/2023 07:17:25 Type 2 Diabetes Mellitus, Self-Care, Adult Type 2 Diabetes Mellitus, Self-Care, Adult Caring for yourself after you have been diagnosed with type 2 diabetes (type 2 diabetes mellitus) means keeping your blood sugar (glucose) under control with a balance of: Nutrition. Exercise. Lifestyle changes. Medicines or insulin, if needed. Support from your team of health care providers and others. What are the risks? Having type 2 diabetes can put you at risk for other long-term (chronic) conditions, such as heart disease and kidney disease. Your health care provider may prescribe medicines to help prevent complications from diabetes. How to monitor your blood glucose Check your blood glucose every day or as often as told by your health care provider. Have your A1C (hemoglobin A1C) level checked two or more times a year, or as often as told by your health care provider. Your health care provider will set personalized treatment goals for you. Generally, the goal of treatment is to maintain the following blood glucose levels: ?Before meals: 80 130 mg/dL (4.4 7.2 mmol/L). ?After meals: below 180 mg/dL (10 mmol/L). ?A1C level: less than 7%. How to manage hyperglycemia and hypoglycemia Hyperglycemia symptoms Hyperglycemia, also called high blood glucose, occurs when blood glucose is too high. Make sure youknow the early signs of hyperglycemia, such as: Increased thirst. Hunger. Feeling very tired. Needing to urinate more often than usual. Blurry vision. Hypoglycemia symptoms Hypoglycemia, also called low blood glucose, occurs with a blood glucose level at or below 70 mg/dL(3.9 mmol/L). Diabetes medicines lower your blood glucose and can cause hypoglycemia. The risk for hypoglycemia increases during or after exercise, during sleep, during illness, and when skipping meals or not eating for a long time (fasting). It is important to know the symptoms of hypoglycemia and treat it right away. Always have a 16-jahxbdtkl-hlsixl carbohydrate snack with you to treat low blood glucose. Family members and close friends should also know the symptoms and understand how to treat hypoglycemia, in case you are not able to treat yourself. Symptoms may include: Hunger. Anxiety. Sweating and feeling clammy. Dizziness or feeling light-headed. Sleepiness. Increased heart rate. Irritability. Tingling or numbness around the mouth, lips, or tongue. Restless sleep. Severe hypoglycemia is when your blood glucose level is at or below 54 mg/dL (3 mmol/L). Severe hypoglycemia is an emergency. Do not wait to see if the symptoms will go away. Get medical help right away. Call your local emergency services (911 in the [place] Do not drive yourself to the hospital. If you have severe hypoglycemia and you cannot eat or drink, you may need glucagon. A family memberor close friend should learn how to check your blood glucose and how to give you glucagon. Ask yourhealth care provider if you need to have an emergency glucagon kit available. Follow these instructions at home: Medicines Take prescribed insulin or diabetes medicines as told by your health care provider. Do not run out of insulin or other diabetes medicines. Plan ahead so you always have these available. If you use insulin, adjust your dosage based on your physical activity and what foods you eat. Yourhealth care provider will tell you how to adjust your dosage. Take zxfv-gpi-opcdvcf and prescription medicines only as told by your health care provider. Eating and drinking What you eat and drink affects your blood glucose and your insulin dosage. Making good choices helps to control your diabetes and prevent other health problems. A healthy meal plan includes eating lean proteins, complex carbohydrates, fresh fruits and vegetables, low-fat dairy products, and healthy fats. Make an appointment to see a registered dietitian to help you create an eating plan that is right for you. Make sure that you: Follow instructions from your health care provider about eating or drinking restrictions. Drink enough fluid to keep your urine pale yellow. Keep a record of the carbohydrates that you eat. Do this by reading food labels and learning the standard serving sizes of foods. Follow your sick-day plan whenever you cannot eat or drink as usual. Make this plan in advance withyour health care provider. Activity Stay active. Exercise regularly, as told by your health care provider. This may include: ?Stretching and doing strength exercises, such as yoga or weight lifting, two or more times a week. ?Doing 150 minutes or more of moderate-intensity or vigorous-intensity exercise each week. This could be brisk walking, biking, or water aerobics. ?Spread out your activity over 3 or more days of the week. ?Do not go more than 2 days in a row without doing some kind of physical activity. When you start a new exercise or activity, work with your health care provider to adjust your insulin, medicines, or food intake as needed. Lifestyle Do not use any products that contain nicotine or tobacco. These products include cigarettes, chewing tobacco, and vaping devices, such as e-cigarettes. If you need help quitting, ask your health careprovider. If you drink alcohol and your health care provider says that it is safe for you: ?Limit how much you have to: ?0 1 drink a day for women who are not . ?0 2 drinks a day for men. ?Know how much alcohol is in your drink. In the [place] one drink equals one 12 oz bottle of beer (355 mL), one 5 oz glass of wine (148 mL), or one 1 oz glass of hard liquor (44 mL). Learn to manage stress. If you need help with this, ask your health care provider. Take care of your body Keep your immunizations up to date. In addition to getting vaccinations as told by your health careprovider, it is recommended that you get vaccinated against the following illnesses: ?The flu (influenza). Get a flu shot every year. ?Pneumonia. ?Hepatitis B. Schedule an eye exam soon after your diagnosis, and then one time every year after that. Check your skin and feet every day for cuts, bruises, redness, blisters, or sores. Schedule a foot exam with your health care provider once every year. [place] your teeth and gums two times a day, and floss one or more times a day. Visit your dentist one or more times every 6 months. Maintain a healthy weight. General instructions Share your diabetes management plan with people in your workplace, school, and household. Carry a medical alert card or wear medical alert jewelry. Keep all follow-up visits. This is important. Questions to ask your health care provider Should I meet with a certified diabetes care and adult secondary education instructor? Where can I find a support group for people with diabetes? Where to find more information For help and guidance and for more information about diabetes, please visit: [place] Diabetes [employer] (ADA): www.diabetes.org [employer] Diabetes Care and Education Specialists (ADCES): www.diabeteseducator.org International Diabetes Federation (IDF): www.idf.org Summary Caring for yourself after you have been diagnosed with type 2 diabetes (type 2 diabetes mellitus) means keeping your blood sugar (glucose) under control with a balance of nutrition, exercise, lifestyle changes, and medicine. Check your blood glucose every day, as often as told by your health care provider. Having diabetes can put you at risk for other long-term (chronic) conditions, such as heart diseaseand kidney disease. Your health care provider may prescribe medicines to help prevent complicationsfrom diabetes. Share your diabetes management plan with people in your workplace, school, and household. Keep all follow-up visits. This is important. This information is not intended to replace advice given to you by your health care provider. Make sure you discuss any questions you have with your health care provider. Document Revised: 11/18/2021 Document Reviewed: 11/18/2021 [employer] Patient Education 2022 [employer]. 10/10/2023 07:17:21 Heart Failure Exacerbation Heart Failure Exacerbation Heart failure is a condition in which the heart has trouble pumping blood. This may mean that the heart cannot pump enough blood out to the body or that the heart does not fill up with enough blood. When this happens, parts of the body do not get the blood and oxygen they need to function properly.This can cause symptoms such as breathing problems, tiredness (fatigue), swelling, and confusion. Heart failure exacerbation refers to heart failure symptoms that get worse. The symptoms may get worse suddenly or develop slowly over time. Heart failure exacerbation is a serious medical problem that should be treated right away. What are the causes? A heart failure exacerbation can be triggered by: Not taking your heart failure medicines correctly. Infections. Eating an unhealthy diet or a diet that is high in salt (sodium). Drinking too much fluid. Drinking alcohol. Using drugs, such as cocaine or methamphetamine. Not exercising. Other causes include: Other heart conditions such as an irregular heart rhythm (arrhythmia). Worsening heart valve function. Low blood counts (anemia). Other medical problems, such as kidney failure, thyroid problems, or diabetes mellitus. Sometimes the cause of the exacerbation is not known. What are the signs or symptoms? When heart failure symptoms suddenly or slowly get worse, this may be a sign of heart failure exacerbation. Symptoms of heart failure include: Shortness of breath during activity or exercise. A cough that does not go away. Swelling of the legs, ankles, feet, or abdomen. Losing or gaining weight for no reason. Trouble breathing when lying down. Increased heart rate or irregular heartbeat. Fatigue. Feeling light-headed, dizzy, or close to fainting. Nausea or lack of appetite. How is this diagnosed? This condition is diagnosed based on: Your symptoms and medical history. A physical exam. You may also have tests, including: Electrocardiogram (ECG). This test measures the electrical activity of your heart. Echocardiogram. This test uses sound waves to take a picture of your heart to see how well it works. Blood tests. Imaging tests, such as: ?Chest X-ray. ?MRI. ?Ultrasound. Stress test. This test examines how well your heart functions while you exercise on a treadmill or exercise bike. If you cannot exercise, medicines may be used to increase your heartbeat in place of exercise. Cardiac catheterization. During this test, a thin, flexible tube (catheter) is inserted into a blood vessel and threaded up to your heart. This test allows your health care provider to check the arteries that lead to your heart (coronary arteries). Right heart catheterization. During this test, the pressure in your heart is measured. How is this treated? This condition may be treated by: Adjusting your heart medicines. Maintaining a healthy lifestyle. This includes: ?Eating a heart-healthy diet that is low in sodium. ?Not using products that contain nicotine or tobacco. ?Regular exercise. ?Monitoring your fluid intake. ?Monitoring your weight and reporting changes to your health care provider. ?Not using alcohol or drugs. Treating sleep apnea, if you have this condition. Surgery. This may include: ?Placing a pacemaker to improve heart function (cardiac resynchronization therapy). ?Implanting a device that can correct heart rhythm problems (implantable cardioverter defibrillator). ?Implanting a pulmonary arterial pressure monitor to monitor your fluid balance. ?Connecting a device to your heart to help it pump blood (ventricular assist device). ?Heart transplant. Follow these instructions at home: Medicines Take dpdo-czw-cgftlne and prescription medicines only as told by your health care provider. Do not stop taking your medicines or change the amount you take. If you are having problems or sideeffects from your medicines, talk to your health care provider. If you are having difficulty paying for your medicines, contact a case management social worker or your clinic. There are many programs to assist with medicine costs. Talk to your health care provider before starting any new medicines or supplements. Make sure your health care provider and pharmacist have a list of all the medicines you are taking. Eating and drinking Avoid drinking alcohol. Eat a heart-healthy diet as told by your health care provider. This includes: ?Plenty of fruits and vegetables. ?Lean proteins. ?Low-fat dairy. ?Whole grains. ?Foods that are low in sodium. Activity Exercise regularly as told by your health care provider. Balance exercise with rest. Ask your health care provider what activities are safe for you. This includes sexual activity, exercise, and daily tasks at home or work. Lifestyle Do not use any products that contain nicotine or tobacco. These products include cigarettes, chewing tobacco, and vaping devices, such as e-cigarettes. If you need help quitting, ask your health careprovider. Maintain a healthy weight. Ask your health care provider what weight is healthy for you. Consider joining a patient support group. This can help with emotional problems you may have, such as stress and anxiety. Do not use drugs. General instructions Stay up to date with vaccines. Talk to your health care provider about flu and pneumonia vaccines. Keep a list of medicines that you are taking. This may help in emergency situations. Keep all follow-up visits. This is important. Contact a health care provider if: You have questions about your medicines or you miss a dose. You feel anxious, depressed, or stressed. You develop swelling in your feet, ankles, legs, or abdomen. You develop a cough. You have a fever. You have trouble sleeping. You gain 2 3 lb (1 1.4 kg) in 24 hours or 5 lb (2.3 kg) in a week. Get help right away if: You have chest pain or pressure. You have shortness of breath while resting. You have severe fatigue. You are confused. You have severe dizziness. You have a rapid or irregular heartbeat. You have nausea or you vomit. You have a cough that is worse at night or you cannot lie flat. You have severe depression or sadness. These symptoms may represent a serious problem that is an emergency. Do not wait to see if the symptoms will go away. Get medical help right away. Call your local emergency services (911 in the [place] Do not drive yourself to the hospital. Summary When heart failure symptoms get worse, it is called heart failure exacerbation. Common causes of this condition include taking medicines incorrectly, infections, and drinking alcohol. This condition may be treated by adjusting medicines, maintaining a healthy lifestyle, or surgery. Do not stop taking your medicines or change the amount you take. If you are having problems or sideeffects from your medicines, talk to your health care provider. This information is not intended to replace advice given to you by your health care provider. Make sure you discuss any questions you have with your health care provider. Document Revised: 09/28/2022 Document Reviewed: 01/10/2021 [employer] Patient Education 2022 [employer]. Follow Up Care 10/07/2023 10:35:27 With:Yocasta SMITH, CREDIT COLLECTIONS CLERK-Myron VILLATORO Address: [address] [place] [phone] When:Within 2 Week(s) Comments:chronic care [facility] 02-07-2024 Evaluation + Plan note Diagnostic Tests Pending * CBC w/ Auto Diff 08/10/23 * Comprehensive Metabolic Panel 08/10/23 * HgbA1c 08/10/23 * Lipid Panel 08/10/23 * Microalbumin Level Urine 08/10/23 * D-Dimer 08/10/23 Future Scheduled Tests Laboratory* Vitamin D 25 Hydroxy 10/13/22 * Creatine Kinase 10/13/22 Radiology* US LE Venous Duplex Insufficiency Bilat 10/13/22 [facility] 02-06-2024 Hospital Discharge instructions Patient Education 08/09/2023 20:20:17 Managing Depression, Adult Managing Depression, Adult Depression is a mental health condition that affects your thoughts, feelings, and actions. Being diagnosed with depression can bring you relief if you did not know why you have felt or behaved a certain way. It could also leave you feeling overwhelmed with uncertainty about your future. Preparing yourself to manage your symptoms can help you feel more positive about your future. How to manage lifestyle changes Managing stress Stress is your body's reaction to life changes and events, both good and bad. Stress can add to your feelings of depression. Learning to manage your stress can help lessen your feelings of depression. Try some of the following approaches to reducing your stress (stress reduction techniques): Listen to music that you enjoy and that inspires you. Try using a meditation beto or take a meditation class. Develop a practice that helps you connect with your spiritual self. Walk in nature, pray, or go to a place of church. Do some deep breathing. To do this, inhale slowly through your nose. Pause at the top of your inhale for a few seconds and then exhale slowly, letting your muscles relax. Practice yoga to help relax and work your muscles. Choose a stress reduction technique that suits your lifestyle and personality. These techniques take time and practice to develop. Set aside 5 15 minutes a day to do them. Therapists can offer training in these techniques. Other things you can do to manage stress include: Keeping a stress diary. Knowing your limits and saying no when you think something is too much. Paying attention to how you react to certain situations. You may not be able to control everything,but you can change your reaction. Adding humor to your life by watching funny films or TV shows. Making time for activities that you enjoy and that relax you. Medicines Medicines, such as antidepressants, are often a part of treatment for depression. Talk with your pharmacist or health care provider about all the medicines, supplements, and herbal products that you take, their possible side effects, and what medicines and other products are safe to take together. Make sure to report any side effects you may have to your health care provider. Relationships Your health care provider may suggest family therapy, couples therapy, or individual therapy as part of your treatment. How to recognize changes Everyone responds differently to treatment for depression. As you recover from depression, you may start to: Have more interest in doing activities. Feel less hopeless. Have more energy. Overeat less often, or have a better appetite. Have better mental focus. It is important to recognize if your depression is not getting better or is getting worse. The symptoms you had in the beginning may return, such as: Tiredness (fatigue) or low energy. Eating too much or too little. Sleeping too much or too little. Feeling restless, agitated, or hopeless. Trouble focusing or making decisions. Unexplained physical complaints. Feeling irritable, angry, or aggressive. If you or your family members notice these symptoms coming back, let your health care provider knowright away. Follow these instructions at home: Activity Try to get some form of exercise each day, such as walking, biking, swimming, or lifting weights. Practice stress reduction techniques. Engage your mind by taking a class or doing some volunteer work. Lifestyle Get the right amount and quality of sleep. Cut down on using caffeine, tobacco, alcohol, and other potentially harmful substances. Eat a healthy diet that includes plenty of vegetables, fruits, whole grains, low-fat dairy products, and lean protein. Do not eat a lot of foods that are high in solid fats, added sugars, or salt (sodium). General instructions Take qbbj-cla-rcngsvl and prescription medicines only as told by your health care provider. Keep all follow-up visits as told by your health care provider. This is important. Where to find support Talking to others Friends and family members can be sources of support and guidance. Talk to trusted friends or family members about your condition. Explain your symptoms to them, and let them know that you are working with a health care provider to treat your depression. Tell friends and family members how they also can be helpful. Finances Find appropriate mental health providers that fit with your financial situation. Talk with your health care provider about options to get reduced prices on your medicines. Where to find more information You can find support in your area from: Anxiety and Depression Association of [place] (ADAA): www.adaa.org Mental Health [place]: www.mentalhealth[place].net [employer] [place] on Mental Illness: www.param.org Contact a health care provider if: You stop taking your antidepressant medicines, and you have any of these symptoms: ?Nausea. ?Headache. ?Light-headedness. ?Chills and body aches. ?Not being able to sleep (insomnia). You or your friends and family think your depression is getting worse. Get help right away if: You have thoughts of hurting yourself or others. If you ever feel like you may hurt yourself or others, or have thoughts about taking your own life,get help right away. Go to your nearest emergency department or: Call your local emergency services (056 in the [place] Call a suicide crisis helpline, such as the National Suicide Prevention Lifeline at or 786 in the [place] This is open 24 hours a day in the [place] Text the Crisis Text Line at 545852 (in the [place] Summary If you are diagnosed with depression, preparing yourself to manage your symptoms is a good way to feel positive about your future. Work with your health care provider on a management plan that includes stress reduction techniques,medicines (if applicable), therapy, and healthy lifestyle habits. Keep talking with your health care provider about how your treatment is working. If you have thoughts about taking your own life, call a suicide crisis helpline or text a crisis text line. This information is not intended to replace advice given to you by your health care provider. Make sure you discuss any questions you have with your health care provider. Document Revised: 01/13/2022 Document Reviewed: 04/30/2020 [employer] Patient Education 2022 [employer] 08/09/2023 20:20:14 Hypertension, Adult Hypertension, Adult High blood pressure (hypertension) is when the force of blood pumping through the arteries is too strong. The arteries are the blood vessels that carry blood from the heart throughout the body. Hypertension forces the heart to work harder to pump blood and may cause arteries to become narrow or stiff. Untreated or uncontrolled hypertension can lead to a heart attack, heart failure, a stroke, kidney disease, and other problems. A blood pressure reading consists of a higher number over a lower number. Ideally, your blood pressure should be below 120/80. The first ( top ) number is called the systolic pressure. It is a measure of the pressure in your arteries as your heart beats. The second ( bottom ) number is called the diastolic pressure. It is a measure of the pressure in your arteries as the heart relaxes. What are the causes? The exact cause of this condition is not known. There are some conditions that result in high bloodpressure. What increases the risk? Certain factors may make you more likely to develop high blood pressure. Some of these risk factorsare under your control, including: Smoking. Not getting enough exercise or physical activity. Being overweight. Having too much fat, sugar, calories, or salt (sodium) in your diet. Drinking too much alcohol. Other risk factors include: Having a personal history of heart disease, diabetes, high cholesterol, or kidney disease. Stress. Having a family history of high blood pressure and high cholesterol. Having obstructive sleep apnea. Age. The risk increases with age. What are the signs or symptoms? High blood pressure may not cause symptoms. Very high blood pressure (hypertensive crisis) may cause: Headache. Fast or irregular heartbeats (palpitations). Shortness of breath. Nosebleed. Nausea and vomiting. Vision changes. Severe chest pain, dizziness, and seizures. How is this diagnosed? This condition is diagnosed by measuring your blood pressure while you are seated, with your arm resting on a flat surface, your legs uncrossed, and your feet flat on the floor. The cuff of the bloodpressure monitor will be placed directly against the skin of your upper arm at the level of your heart. Blood pressure should be measured at least twice using the same arm. Certain conditions can cause a difference in blood pressure between your right and left arms. If you have a high blood pressure reading during one visit or you have normal blood pressure with other risk factors, you may be asked to: Return on a different day to have your blood pressure checked again. Monitor your blood pressure at home for 1 week or longer. If you are diagnosed with hypertension, you may have other blood or imaging tests to help your health care provider understand your overall risk for other conditions. How is this treated? This condition is treated by making healthy lifestyle changes, such as eating healthy foods, exercising more, and reducing your alcohol intake. You may be referred for counseling on a healthy diet and physical activity. Your health care provider may prescribe medicine if lifestyle changes are not enough to get your blood pressure under control and if: Your systolic blood pressure is above 130. Your diastolic blood pressure is above 80. Your personal target blood pressure may vary depending on your medical conditions, your age, and other factors. Follow these instructions at home: Eating and drinking Eat a diet that is high in fiber and potassium, and low in sodium, added sugar, and fat. An exampleof this eating plan is called the DASH diet. DASH stands for Dietary Approaches to Stop Hypertension. To eat this way: ?Eat plenty of fresh fruits and vegetables. Try to fill one half of your plate at each meal with fruits and vegetables. ?Eat whole grains, such as whole-wheat pasta, brown rice, or whole-grain bread. Fill about one fourth of your plate with whole grains. ?Eat or drink low-fat dairy products, such as skim milk or low-fat yogurt. ?Avoid fatty cuts of meat, processed or cured meats, and poultry with skin. Fill about one fourth of your plate with lean proteins, such as fish, chicken without skin, beans, eggs, or tofu. ?Avoid pre-made and processed foods. These tend to be higher in sodium, added sugar, and fat. Reduce your daily sodium intake. Many people with hypertension should eat less than 1,500 mg of sodium a day. Do not drink alcohol if: ?Your health care provider tells you not to drink. ?You are , may be , or are planning to become . If you drink alcohol: ?Limit how much you have to: ?0 1 drink a day for women. ?0 2 drinks a day for men. ?Know how much alcohol is in your drink. In the [place] one drink equals one 12 oz bottle of beer (355 mL), one 5 oz glass of wine (148 mL), or one 1 oz glass of hard liquor (44 mL). Lifestyle Work with your health care provider to maintain a healthy body weight or to lose weight. Ask what an ideal weight is for you. Get at least 30 minutes of exercise that causes your heart to beat faster (aerobic exercise) most days of the week. Activities may include walking, swimming, or biking. Include exercise to strengthen your muscles (resistance exercise), such as Pilates or lifting weights, as part of your weekly exercise routine. Try to do these types of exercises for 30 minutes at least 3 days a week. Do not use any products that contain nicotine or tobacco. These products include cigarettes, chewing tobacco, and vaping devices, such as e-cigarettes. If you need help quitting, ask your health careprovider. Monitor your blood pressure at home as told by your health care provider. Keep all follow-up visits. This is important. Medicines Take twod-kaw-bvgndyh and prescription medicines only as told by your health care provider. Follow directions carefully. Blood pressure medicines must be taken as prescribed. Do not skip doses of blood pressure medicine. Doing this puts you at risk for problems and can makethe medicine less effective. Ask your health care provider about side effects or reactions to medicines that you should watch for. Contact a health care provider if you: Think you are having a reaction to a medicine you are taking. Have headaches that keep coming back (recurring). Feel dizzy. Have swelling in your ankles. Have trouble with your vision. Get help right away if you: Develop a severe headache or confusion. Have unusual weakness or numbness. Feel faint. Have severe pain in your chest or abdomen. Vomit repeatedly. Have trouble breathing. These symptoms may be an emergency. Get help right away. Call 911. Do not wait to see if the symptoms will go away. Do not drive yourself to the hospital. Summary Hypertension is when the force of blood pumping through your arteries is too strong. If this condition is not controlled, it may put you at risk for serious complications. Your personal target blood pressure may vary depending on your medical conditions, your age, and other factors. For most people, a normal blood pressure is less than 120/80. Hypertension is treated with lifestyle changes, medicines, or a combination of both. Lifestyle changes include losing weight, eating a healthy, low-sodium diet, exercising more, and limiting alcohol. This information is not intended to replace advice given to you by your health care provider. Make sure you discuss any questions you have with your health care provider. Document Revised: 04/27/2022 Document Reviewed: 04/27/2022 [employer] Patient Education 2022 [employer]. 08/09/2023 20:20:10 Type 2 Diabetes Mellitus, Self-Care, Adult Type 2 Diabetes Mellitus, Self-Care, Adult Caring for yourself after you have been diagnosed with type 2 diabetes (type 2 diabetes mellitus) means keeping your blood sugar (glucose) under control with a balance of: Nutrition. Exercise. Lifestyle changes. Medicines or insulin, if needed. Support from your team of health care providers and others. What are the risks? Having type 2 diabetes can put you at risk for other long-term (chronic) conditions, such as heart disease and kidney disease. Your health care provider may prescribe medicines to help prevent complications from diabetes. How to monitor your blood glucose Check your blood glucose every day or as often as told by your health care provider. Have your A1C (hemoglobin A1C) level checked two or more times a year, or as often as told by your health care provider. Your health care provider will set personalized treatment goals for you. Generally, the goal of treatment is to maintain the following blood glucose levels: ?Before meals: 80 130 mg/dL (4.4 7.2 mmol/L). ?After meals: below 180 mg/dL (10 mmol/L). ?A1C level: less than 7%. How to manage hyperglycemia and hypoglycemia Hyperglycemia symptoms Hyperglycemia, also called high blood glucose, occurs when blood glucose is too high. Make sure youknow the early signs of hyperglycemia, such as: Increased thirst. Hunger. Feeling very tired. Needing to urinate more often than usual. Blurry vision. Hypoglycemia symptoms Hypoglycemia, also called low blood glucose, occurs with a blood glucose level at or below 70 mg/dL(3.9 mmol/L). Diabetes medicines lower your blood glucose and can cause hypoglycemia. The risk for hypoglycemia increases during or after exercise, during sleep, during illness, and when skipping meals or not eating for a long time (fasting). It is important to know the symptoms of hypoglycemia and treat it right away. Always have a 51-qdjmuqdjz-xjapsn carbohydrate snack with you to treat low blood glucose. Family members and close friends should also know the symptoms and understand how to treat hypoglycemia, in case you are not able to treat yourself. Symptoms may include: Hunger. Anxiety. Sweating and feeling clammy. Dizziness or feeling light-headed. Sleepiness. Increased heart rate. Irritability. Tingling or numbness around the mouth, lips, or tongue. Restless sleep. Severe hypoglycemia is when your blood glucose level is at or below 54 mg/dL (3 mmol/L). Severe hypoglycemia is an emergency. Do not wait to see if the symptoms will go away. Get medical help right away. Call your local emergency services (911 in the [place] Do not drive yourself to the hospital. If you have severe hypoglycemia and you cannot eat or drink, you may need glucagon. A family memberor close friend should learn how to check your blood glucose and how to give you glucagon. Ask yourhealth care provider if you need to have an emergency glucagon kit available. Follow these instructions at home: Medicines Take prescribed insulin or diabetes medicines as told by your health care provider. Do not run out of insulin or other diabetes medicines. Plan ahead so you always have these available. If you use insulin, adjust your dosage based on your physical activity and what foods you eat. Yourhealth care provider will tell you how to adjust your dosage. Take eipp-uro-zybncle and prescription medicines only as told by your health care provider. Eating and drinking What you eat and drink affects your blood glucose and your insulin dosage. Making good choices helps to control your diabetes and prevent other health problems. A healthy meal plan includes eating lean proteins, complex carbohydrates, fresh fruits and vegetables, low-fat dairy products, and healthy fats. Make an appointment to see a registered dietitian to help you create an eating plan that is right for you. Make sure that you: Follow instructions from your health care provider about eating or drinking restrictions. Drink enough fluid to keep your urine pale yellow. Keep a record of the carbohydrates that you eat. Do this by reading food labels and learning the standard serving sizes of foods. Follow your sick-day plan whenever you cannot eat or drink as usual. Make this plan in advance withyour health care provider. Activity Stay active. Exercise regularly, as told by your health care provider. This may include: ?Stretching and doing strength exercises, such as yoga or weight lifting, two or more times a week. ?Doing 150 minutes or more of moderate-intensity or vigorous-intensity exercise each week. This could be brisk walking, biking, or water aerobics. ?Spread out your activity over 3 or more days of the week. ?Do not go more than 2 days in a row without doing some kind of physical activity. When you start a new exercise or activity, work with your health care provider to adjust your insulin, medicines, or food intake as needed. Lifestyle Do not use any products that contain nicotine or tobacco. These products include cigarettes, chewing tobacco, and vaping devices, such as e-cigarettes. If you need help quitting, ask your health careprovider. If you drink alcohol and your health care provider says that it is safe for you: ?Limit how much you have to: ?0 1 drink a day for women who are not . ?0 2 drinks a day for men. ?Know how much alcohol is in your drink. In the [place] one drink equals one 12 oz bottle of beer (355 mL), one 5 oz glass of wine (148 mL), or one 1 oz glass of hard liquor (44 mL). Learn to manage stress. If you need help with this, ask your health care provider. Take care of your body Keep your immunizations up to date. In addition to getting vaccinations as told by your health careprovider, it is recommended that you get vaccinated against the following illnesses: ?The flu (influenza). Get a flu shot every year. ?Pneumonia. ?Hepatitis B. Schedule an eye exam soon after your diagnosis, and then one time every year after that. Check your skin and feet every day for cuts, bruises, redness, blisters, or sores. Schedule a foot exam with your health care provider once every year. [place] your teeth and gums two times a day, and floss one or more times a day. Visit your dentist one or more times every 6 months. Maintain a healthy weight. General instructions Share your diabetes management plan with people in your workplace, school, and household. Carry a medical alert card or wear medical alert jewelry. Keep all follow-up visits. This is important. Questions to ask your health care provider Should I meet with a certified diabetes care and adult secondary education instructor? Where can I find a support group for people with diabetes? Where to find more information For help and guidance and for more information about diabetes, please visit: [place] Diabetes Association (ADA): www.diabetes.org [place] [employer] of Diabetes Care and Education Specialists (ADCES): www.diabeteseducator.org International Diabetes Federation (IDF): www.idf.org Summary Caring for yourself after you have been diagnosed with type 2 diabetes (type 2 diabetes mellitus) means keeping your blood sugar (glucose) under control with a balance of nutrition, exercise, lifestyle changes, and medicine. Check your blood glucose every day, as often as told by your health care provider. Having diabetes can put you at risk for other long-term (chronic) conditions, such as heart diseaseand kidney disease. Your health care provider may prescribe medicines to help prevent complicationsfrom diabetes. Share your diabetes management plan with people in your workplace, school, and household. Keep all follow-up visits. This is important. This information is not intended to replace advice given to you by your health care provider. Make sure you discuss any questions you have with your health care provider. Document Revised: 11/18/2021 Document Reviewed: 11/18/2021 [employer] Patient Education 2022 [employer]. 08/09/2023 20:20:09 Health Risks of Smoking Health Risks of Smoking Smoking tobacco is very bad for your health. Tobacco smoke contains many toxic chemicals that can damage every part of your body. Secondhand smoke can be harmful to those around you. Tobacco or nicotine use can cause many long-term (chronic) diseases. Smoking is difficult to quit because a chemical in tobacco, called nicotine, causes addiction or dependence. When you smoke and inhale, nicotine is absorbed quickly into your bloodstream through yourlungs. Both inhaled and non-inhaled nicotine may be addictive. How can quitting affect me? There are health benefits of quitting smoking. Some benefits happen right away and others take time. Benefits may include: Blood flow, blood pressure, heart rate, and lung capacity may begin to improve. However, any lung damage that has already occurred cannot be repaired. Respiratory symptoms from smoking, such as nasal congestion and cough, may improve over time. Your risk of heart disease, stroke, and cancer is reduced. The overall quality of your health may improve. You may save money, as you will not spend money on tobacco products and may spend less money on smoking-related health issues. What can increase my risk? Smoking harms nearly every organ in the body. People who smoke tobacco have a shorter life expectancy and an increased risk of many serious medical problems. These include: More respiratory infections, such as colds and pneumonia. Cancer. Heart disease. Stroke. Chronic respiratory diseases. Delayed wound healing and increased risk of complications during surgery. Problems with reproduction, , and childbirth, such as infertility, early (premature) births, stillbirths, and defects. Secondhand smoke exposure to children increases the risk of: Sudden infant syndrome (SIDS). Infections in the nose, throat, or airways (respiratory infections). Chronic respiratory symptoms. What actions can I take to quit? Smoking is an addiction that affects both your body and your mind, and long-time habits can be hardto change. Your health care provider can recommend: Nicotine replacement products, such as patches, gum, and nasal sprays. Use these products only as directed. Do not replace cigarette smoking with electronic cigarettes, which are commonly called e-cigarettes. The safety of e-cigarettes is not known, and some may contain harmful chemicals. Programs and community resources, which may include group support, education, or talk therapy. Prescription medicines to help reduce cravings. A combination of two or more quit methods, which may increase the success of quitting. Where to find support Follow the recommendations from your health care provider about support groups and other assistance. You can also visit: [place]. Department of Health and Human Services: www.smokefree.gov [employer] Lung Association: www.freedomfromsmoking.org [place] Heart Association: www.heart.org Where to find more information Centers for Disease Control and Prevention: www.cdc.gov World Health Organization: www.who.int Summary Smoking tobacco is very bad for your health. Tobacco smoke contains many toxic chemicals that can damage every part of the body. Smoking is difficult to quit because a chemical in tobacco, called nicotine, causes addiction or dependence. There are immediate and long-term health benefits of quitting smoking. A combination of two or more quit methods may increase the success of quitting. This information is not intended to replace advice given to you by your health care provider. Make sure you discuss any questions you have with your health care provider. Document Revised: 06/22/2022 Document Reviewed: 06/22/2022 [employer] Patient Education 2022 [employer] 08/09/2023 20:20:08 DASH Eating Plan DASH Eating Plan DASH stands for Dietary Approaches to Stop Hypertension. The DASH eating plan is a healthy eating plan that has been shown to: Reduce high blood pressure (hypertension). Reduce your risk for type 2 diabetes, heart disease, and stroke. Help with weight loss. What are tips for following this plan? Reading food labels Check food labels for the amount of salt (sodium) per serving. Choose foods with less than 5 percent of the Daily Value of sodium. Generally, foods with less than 300 milligrams (mg) of sodium per serving fit into this eating plan. To find whole grains, look for the word whole as the first word in the ingredient list. Shopping Buy products labeled as low-sodium or no salt added. Buy fresh foods. Avoid canned foods and pre-made or frozen meals. Cooking Avoid adding salt when cooking. Use salt-free seasonings or herbs instead of table salt or sea salt. Check with your health care provider or pharmacist before using salt substitutes. Do not hodges foods. Cook foods using healthy methods such as baking, boiling, grilling, roasting, andbroiling instead. Cook with heart-healthy oils, such as olive, canola, avocado, soybean, or sunflower oil. Meal planning Eat a balanced diet that includes: ?4 or more servings of fruits and 4 or more servings of vegetables each day. Try to fill one-half of your plate with fruits and vegetables. ?6 8 servings of whole grains each day. ?Less than 6 oz (170 g) of lean meat, poultry, or fish each day. A 3-oz (85-g) serving of meat is about the same size as a deck of cards. One egg equals 1 oz (28 g). ?2 3 servings of low-fat dairy each day. One serving is 1 cup (237 mL). ?1 serving of nuts, seeds, or beans 5 times each week. ?2 3 servings of heart-healthy fats. Healthy fats called omega-3 fatty acids are found in foods such as walnuts, flaxseeds, fortified milks, and eggs. These fats are also found in cold-water fish, such as sardines, salmon, and mackerel. Limit how much you eat of: ?Canned or prepackaged foods. ?Food that is high in trans fat, such as some fried foods. ?Food that is high in saturated fat, such as fatty meat. ?Desserts and other sweets, sugary drinks, and other foods with added sugar. ?Full-fat dairy products. Do not salt foods before eating. Do not eat more than 4 egg yolks a week. Try to eat at least 2 vegetarian meals a week. Eat more home-cooked food and less restaurant, buffet, and fast food. Lifestyle When eating at a restaurant, ask that your food be prepared with less salt or no salt, if possible. If you drink alcohol: ?Limit how much you use to: ?0 1 drink a day for women who are not . ?0 2 drinks a day for men. ?Be aware of how much alcohol is in your drink. In the [place] one drink equals one 12 oz bottle of beer (355 mL), one 5 oz glass of wine (148 mL), or one 1 oz glass of hard liquor (44 mL). General information Avoid eating more than 2,300 mg of salt a day. If you have hypertension, you may need to reduce your sodium intake to 1,500 mg a day. Work with your health care provider to maintain a healthy body weight or to lose weight. Ask what an ideal weight is for you. Get at least 30 minutes of exercise that causes your heart to beat faster (aerobic exercise) most days of the week. Activities may include walking, swimming, or biking. Work with your health care provider or dietitian to adjust your eating plan to your individual calorie needs. What foods should I eat? Fruits All fresh, dried, or frozen fruit. Canned fruit in natural juice (without added sugar). Vegetables Fresh or frozen vegetables (raw, steamed, roasted, or grilled). Low-sodium or reduced-sodium tomatoand vegetable juice. Low-sodium or reduced-sodium tomato sauce and tomato paste. Low-sodium or reduced-sodium canned vegetables. Grains Whole-grain or whole-wheat bread. Whole-grain or whole-wheat pasta. Brown rice. Oatmeal. Quinoa. Bulgur. Whole-grain and low-sodium cereals. Emma bread. Low- fat, low-sodium crackers. Whole-wheat flour tortillas. Meats and other proteins Skinless chicken or turkey. Ground chicken or turkey. Pork with fat trimmed off. Fish and seafood. Egg whites. Dried beans, peas, or lentils. Unsalted nuts, nut butters, and seeds. Unsalted canned beans. Lean cuts of beef with fat trimmed off. Low-sodium, lean precooked or cured meat, such as sausages or meat loaves. Dairy Low-fat (1%) or fat-free (skim) milk. Reduced-fat, low-fat, or fat-free cheeses. Nonfat, low-sodiumricotta or cottage cheese. Low-fat or nonfat yogurt. Low-fat, low-sodium cheese. Fats and oils Soft margarine without trans fats. Vegetable oil. Reduced-fat, low-fat, or light mayonnaise and salad dressings (reduced-sodium). Canola, safflower, olive, avocado, soybean, and sunflower oils. Avocado. Seasonings and condiments Herbs. Spices. Seasoning mixes without salt. Other foods Unsalted popcorn and pretzels. Fat-free sweets. The items listed above may not be a complete list of foods and beverages you can eat. Contact a dietitian for more information. What foods should I avoid? Fruits Canned fruit in a light or heavy syrup. Fried fruit. Fruit in cream or butter sauce. Vegetables Creamed or fried vegetables. Vegetables in a cheese sauce. Regular canned vegetables (not low-sodium or reduced-sodium). Regular canned tomato sauce and paste (not low-sodium or reduced-sodium). Regular tomato and vegetable juice (not low-sodium or reduced-sodium). Pickles. Olives. Grains Baked goods made with fat, such as croissants, muffins, or some breads. Dry pasta or rice meal packs. Meats and other proteins Fatty cuts of meat. Ribs. Fried meat. Manjarrez. Bologna, salami, and other precooked or cured meats, such as sausages or meat loaves. Fat from the back of a pig (fatback). Bratwurst. Salted nuts and seeds. Canned beans with added salt. Canned or smoked fish. Whole eggs or egg yolks. Chicken or turkey with skin. Dairy Whole or 2% milk, cream, and [id number]. Whole or full-fat cream cheese. Whole-fat or sweetened yogurt. Full-fat cheese. Nondairy creamers. Whipped toppings. Processed cheese and cheese spreads. Fats and oils Butter. Stick margarine. Lard. Shortening. Ghee. Manjarrez fat. Tropical oils, such as coconut, palm kernel, or palm oil. Seasonings and condiments Onion salt, garlic salt, seasoned salt, table salt, and sea salt. Worcestershire sauce. Tartar sauce. Barbecue sauce. Teriyaki sauce. Soy sauce, including reduced-sodium. Steak sauce. Canned and packaged gravies. Fish sauce. Oyster sauce. Cocktail sauce. Store-bought horseradish. Ketchup. Mustard. Meat flavorings and tenderizers. Bouillon cubes. Hot sauces. Pre-made or packaged marinades. Pre-made or packaged taco seasonings. Relishes. Regular salad dressings. Other foods Salted popcorn and pretzels. The items listed above may not be a complete list of foods and beverages you should avoid. Contact a dietitian for more information. Where to find more information National Heart, Lung, and Blood [place]: www.nhlbi.nih.gov [place] Heart Association: www.heart.org Academy of Nutrition and Dietetics: www.eatright.org National Kidney Foundation: www.kidney.org Summary The DASH eating plan is a healthy eating plan that has been shown to reduce high blood pressure (hypertension). It may also reduce your risk for type 2 diabetes, heart disease, and stroke. When on the DASH eating plan, aim to eat more fresh fruits and vegetables, whole grains, lean proteins, low-fat dairy, and heart-healthy fats. With the DASH eating plan, you should limit salt (sodium) intake to 2,300 mg a day. If you have hypertension, you may need to reduce your sodium intake to 1,500 mg a day. Work with your health care provider or dietitian to adjust your eating plan to your individual calorie needs. This information is not intended to replace advice given to you by your health care provider. Make sure you discuss any questions you have with your health care provider. Document Revised: 05/23/2020 Document Reviewed: 05/23/2020 [employer] Patient Education 2022 [employer]. Follow Up Care 11/26/2022 13:53:51 With:Yocasta SMITH, CREDIT COLLECTIONS CLERK-Myron VILLATORO Address: [address] [place] [id number] When:Within 6 Month(s) Comments:chronic care [facility] [place] 01-18-2024 History of Present illness Narrative* Arlene Zuñiga - 07/21/2023 10:30 AM EST Occupational Therapy [facility] Date: 07/21/2023 Patient Name: Carmen Bledsoe DOB: 1960 Pt Cancelled Appt due to left voice mail with no reason for cancel. Arlene Zuñiga Date: 07/21/2023 [facility] History of Present illness Narrative* Lisseth Luu - 07/20/2023 3:00 PM EST [facility]: [facility] Patient Name: Carmen Bledsoe DOB: 1960 Patient called to cancel Appt., did not state a reason for cancellation. Lisseth Luu Date: 07/20/2023 [facility] History of Present illness Narrative* Lisseth Luu - 07/14/2023 10:30 AM EST [facility]: [facility] Patient Name: Carmen Bledsoe : 1960 Patient called to cancel, did not give a reason. She said she will be at her next scheduled appointment on 07/19/23. Lisseth Luu Date: 07/14/2023 [facility] History of Present illness Narrative* Arlene Zuñiga - 07/08/2023 1:30 PM EST Occupational Therapy [facility] Date: 07/08/2023 Patient Name: Carmen Bledsoe : 1960 Pt Cancelled Appt due to no reason for cancel. Arlene uZñiga Date: 07/08/2023 [facility] History of Present illness Narrative* Shock, Fariba Sepulveda - 07/06/2023 10:30 AM EST Physical Therapy [facility] Date: 07/06/2023 Patient Name: Carmen Bledsoe : 1960 Patient is not able to a make this appointment, she rescheduled for tomorrow. Fariba Omer Date: 07/06/2023 documented in [facility] Hospital Discharge instructions Patient Education 05/09/2023 22:10:36 Back Exercises Back Exercises The following exercises strengthen the muscles that help to support the trunk (torso) and back. They also help to keep the lower back flexible. Doing these exercises can help to prevent or lessen existing low back pain. If you have back pain or discomfort, try doing these exercises 2 3 times each day or as told by your health care provider. As your pain improves, do them once each day, but increase the number of times that you repeat the steps for each exercise (do more repetitions). To prevent the recurrence of back pain, continue to do these exercises once each day or as told by your health care provider. Do exercises exactly as told by your health care provider and adjust them as directed. It is normalto feel mild stretching, pulling, tightness, or discomfort as you do these exercises, but you should stop right away if you feel sudden pain or your pain gets worse. Exercises Single knee to chest Repeat these steps 3 5 times for each le.Lie on your back on a firm bed or the floor with your legs extended. 2.Bring one knee to your chest. Your other leg should stay extended and in contact with the floor. 3.Hold your knee in place by grabbing your knee or thigh with both hands and hold. 4.Pull on your knee until you feel a gentle stretch in your lower back or buttocks. 5.Hold the stretch for 10 30 seconds. 6.Slowly release and straighten your leg. Pelvic tilt Repeat these steps 5 10 times: 1.Lie on your back on a firm bed or the floor with your legs extended. 2.Bend your knees so they are pointing toward the ceiling and your feet are flat on the floor. 3.Tighten your lower abdominal muscles to press your lower back against the floor. This motion willtilt your pelvis so your tailbone points up toward the ceiling instead of pointing to your feet or the floor. 4.With gentle tension and even breathing, hold this position for 5 10 seconds. Cat-cow Repeat these steps until your lower back becomes more flexible: 1.Get into a [id number] position on a firm bed or the floor. Keep your hands under your shoulders, and keep your knees under your hips. You may place padding under your knees for comfort. 2.Let your head hang down toward your chest. Contract your abdominal muscles and point your tailbone toward the floor so your lower back becomes rounded like the back of a cat. 3.Hold this position for 5 seconds. 4.Slowly lift your head, let your abdominal muscles relax, and point your tailbone up toward the ceiling so your back forms a sagging arch like the back of a cow. 5.Hold this position for 5 seconds. Press-ups Repeat these steps 5 10 times: 1.Lie on your abdomen (face-down) on a firm bed or the floor. 2.Place your palms near your head, about shoulder-width apart. 3.Keeping your back as relaxed as possible and keeping your hips on the floor, slowly straighten your arms to raise the top half of your body and lift your shoulders. Do not use your back muscles to raise your upper torso. You may adjust the placement of your hands to make yourself more comfortable. 4.Hold this position for 5 seconds while you keep your back relaxed. 5.Slowly return to lying flat on the floor. Bridges Repeat these steps 10 times: 1.Lie on your back on a firm bed or the floor. 2.Bend your knees so they are pointing toward the ceiling and your feet are flat on the floor. Yourarms should be flat at your sides, next to your body. 3.Tighten your buttocks muscles and lift your buttocks off the floor until your waist is at almost the same height as your knees. You should feel the muscles working in your buttocks and the back of your thighs. If you do not feel these muscles, slide your feet 1 2 inches (2.5 5 cm) farther away from your buttocks. 4.Hold this position for 3 5 seconds. 5.Slowly lower your hips to the starting position, and allow your buttocks muscles to relax completely. If this exercise is too easy, try doing it with your arms crossed over your chest. Abdominal crunches Repeat these steps 5 10 times: 1.Lie on your back on a firm bed or the floor with your legs extended. 2.Bend your knees so they are pointing toward the ceiling and your feet are flat on the floor. 3.Cross your arms over your chest. 4.Tip your chin slightly toward your chest without bending your neck. 5.Tighten your abdominal muscles and slowly raise your torso high enough to lift your shoulder blades a tiny bit off the floor. Avoid raising your torso higher than that because it can put too much stress on your lower back and does not help to strengthen your abdominal muscles. 6.Slowly return to your starting position. Back lifts Repeat these steps 5 10 times: 1.Lie on your abdomen (face-down) with your arms at your sides, and rest your forehead on the floor. 2.Tighten the muscles in your legs and your buttocks. 3.Slowly lift your chest off the floor while you keep your hips pressed to the floor. Keep the backof your head in line with the curve in your back. Your eyes should be looking at the floor. 4.Hold this position for 3 5 seconds. 5.Slowly return to your starting position. Contact a health care provider if: Your back pain or discomfort gets much worse when you do an exercise. Your worsening back pain or discomfort does not lessen within 2 hours after you exercise. If you have any of these problems, stop doing these exercises right away. Do not do them again unless your health care provider says that you can. Get help right away if: You develop sudden, severe back pain. If this happens, stop doing the exercises right away. Do not do them again unless your health care provider says that you can. This information is not intended to replace advice given to you by your health care provider. Make sure you discuss any questions you have with your health care provider. Document Revised: 12/15/2021 Document Reviewed: 09/02/2021 [employer] Patient Education 2022 [employer]. Follow Up Care 05/06/2023 08:05:37 With:Ansley Carrero PA-C Address: [address] [employer], [place] [address], [place] [address] [phone] When: only if needed Comments:Only if needed [facility] [place] 10-23-2023 Hospital Discharge instructions Patient Education 04/25/2023 19:33:58 Sciatica Sciatica Sciatica is pain, numbness, weakness, or tingling along the path of the sciatic nerve. The sciatic nerve starts in the lower back and runs down the back of each leg. The nerve controls the muscles inthe lower leg and in the back of the knee. It also provides feeling (sensation) to the back of the thigh, the lower leg, and the sole of the foot. Sciatica is a symptom of another medical condition th at pinches or puts pressure on the sciatic nerve. Sciatica most often only affects one side of the body. Sciatica usually goes away on its own or with treatment. In some cases, sciatica may come back (recur). What are the causes? This condition is caused by pressure on the sciatic nerve or pinching of the nerve. This may be theresult of: A disk in between the bones of the spine bulging out too far (herniated disk). Age-related changes in the spinal disks. A pain disorder that affects a muscle in the buttock. Extra bone growth near the sciatic nerve. A break (fracture) of the pelvis. . Tumor. This is rare. What increases the risk? The following factors may make you more likely to develop this condition: Playing sports that place pressure or stress on the spine. Having poor strength and flexibility. A history of back injury or surgery. Sitting for long periods of time. Doing activities that involve repetitive bending or lifting. Obesity. What are the signs or symptoms? Symptoms can vary from mild to very severe, and they may include: Any of these problems in the lower back, leg, hip, or buttock: ?Mild tingling, numbness, or dull aches. ?Burning sensations. ?Sharp pains. Numbness in the back of the calf or the sole of the foot. Leg weakness. Severe back pain that makes movement difficult. Symptoms may get worse when you cough, sneeze, or laugh, or when you sit or stand for long periods of time. How is this diagnosed? This condition may be diagnosed based on: Your symptoms and medical history. A physical exam. Blood tests. Imaging tests, such as: ?X-rays. ?MRI. ?CT scan. How is this treated? In many cases, this condition improves on its own without treatment. However, treatment may include: Reducing or modifying physical activity. Exercising and stretching. Icing and applying heat to the affected area. Medicines that help to: ?Relieve pain and swelling. ?Relax your muscles. Injections of medicines that help to relieve pain, irritation, and inflammation around the sciatic nerve (steroids). Surgery. Follow these instructions at home: Medicines Take gjjh-iah-qhremjf and prescription medicines only as told by your health care provider. Ask your health care provider if the medicine prescribed to you: ?Requires you to avoid driving or using heavy machinery. ?Can cause constipation. You may need to take these actions to prevent or treat constipation: ?Drink enough fluid to keep your urine pale yellow. ?Take qhaz-sas-enjoumj or prescription medicines. ?Eat foods that are high in fiber, such as beans, whole grains, and fresh fruits and vegetables. ?Limit foods that are high in fat and processed sugars, such as fried or sweet foods. Managing pain If directed, put ice on the affected area. ?Put ice in a plastic bag. ?Place a towel between your skin and the bag. ?Leave the ice on for 20 minutes, 2 3 times a day. If directed, apply heat to the affected area. Use the heat source that your health care provider recommends, such as a moist heat pack or a heating pad. ?Place a towel between your skin and the heat source. ?Leave the heat on for 20 30 minutes. ?Remove the heat if your skin turns bright red. This is especially important if you are unable to feel pain, heat, or cold. You may have a greater risk of getting burned. Activity Return to your normal activities as told by your health care provider. Ask your health care provider what activities are safe for you. Avoid activities that make your symptoms worse. Take brief periods of rest throughout the day. ?When you rest for longer periods, mix in some mild activity or stretching between periods of rest.This will help to prevent stiffness and pain. ?Avoid sitting for long periods of time without moving. Get up and move around at least one time each hour. Exercise and stretch regularly, as told by your health care provider. Do not lift anything that is heavier than 10 lb (4.5 kg) while you have symptoms of sciatica. When you do not have symptoms, you should still avoid heavy lifting, especially repetitive heavy lifting. When you lift objects, always use proper lifting technique, which includes: ?Bending your knees. ?Keeping the load close to your body. ?Avoiding twisting. General instructions Maintain a healthy weight. Excess weight puts extra stress on your back. Wear supportive, comfortable shoes. Avoid wearing high heels. Avoid sleeping on a mattress that is too soft or too hard. A mattress that is firm enough to support your back when you sleep may help to reduce your pain. Keep all follow-up visits as told by your health care provider. This is important. Contact a health care provider if: You have pain that: ?Wakes you up when you are sleeping. ?Gets worse when you lie down. ?Is worse than you have experienced in the past. ?Lasts longer than 4 weeks. You have an unexplained weight loss. Get help right away if: You are not able to control when you urinate or have bowel movements (incontinence). You have: ?Weakness in your lower back, pelvis, buttocks, or legs that gets worse. ?Redness or swelling of your back. ?A burning sensation when you urinate. Summary Sciatica is pain, numbness, weakness, or tingling along the path of the sciatic nerve. This condition is caused by pressure on the sciatic nerve or pinching of the nerve. Sciatica can cause pain, numbness, or tingling in the lower back, legs, hips, and buttocks. Treatment often includes rest, exercise, medicines, and applying ice or heat. This information is not intended to replace advice given to you by your health care provider. Make sure you discuss any questions you have with your health care provider. Document Revised: 07/09/2019 Document Reviewed: 07/09/2019 [employer] Patient Education 2022 [employer]. 04/25/2023 19:33:56 Back Exercises Back Exercises The following exercises strengthen the muscles that help to support the trunk (torso) and back. They also help to keep the lower back flexible. Doing these exercises can help to prevent or lessen existing low back pain. If you have back pain or discomfort, try doing these exercises 2 3 times each day or as told by your health care provider. As your pain improves, do them once each day, but increase the number of times that you repeat the steps for each exercise (do more repetitions). To prevent the recurrence of back pain, continue to do these exercises once each day or as told by your health care provider. Do exercises exactly as told by your health care provider and adjust them as directed. It is normalto feel mild stretching, pulling, tightness, or discomfort as you do these exercises, but you should stop right away if you feel sudden pain or your pain gets worse. Exercises Single knee to chest Repeat these steps 3 5 times for each le.Lie on your back on a firm bed or the floor with your legs extended. 2.Bring one knee to your chest. Your other leg should stay extended and in contact with the floor. 3.Hold your knee in place by grabbing your knee or thigh with both hands and hold. 4.Pull on your knee until you feel a gentle stretch in your lower back or buttocks. 5.Hold the stretch for 10 30 seconds. 6.Slowly release and straighten your leg. Pelvic tilt Repeat these steps 5 10 times: 1.Lie on your back on a firm bed or the floor with your legs extended. 2.Bend your knees so they are pointing toward the ceiling and your feet are flat on the floor. 3.Tighten your lower abdominal muscles to press your lower back against the floor. This motion willtilt your pelvis so your tailbone points up toward the ceiling instead of pointing to your feet or the floor. 4.With gentle tension and even breathing, hold this position for 5 10 seconds. Cat-cow Repeat these steps until your lower back becomes more flexible: 1.Get into a gaufp-klq-mpbzs position on a firm bed or the floor. Keep your hands under your shoulders, and keep your knees under your hips. You may place padding under your knees for comfort. 2.Let your head hang down toward your chest. Contract your abdominal muscles and point your tailbone toward the floor so your lower back becomes rounded like the back of a cat. 3.Hold this position for 5 seconds. 4.Slowly lift your head, let your abdominal muscles relax, and point your tailbone up toward the ceiling so your back forms a sagging arch like the back of a cow. 5.Hold this position for 5 seconds. Press-ups Repeat these steps 5 10 times: 1.Lie on your abdomen (face-down) on a firm bed or the floor. 2.Place your palms near your head, about shoulder-width apart. 3.Keeping your back as relaxed as possible and keeping your hips on the floor, slowly straighten your arms to raise the top half of your body and lift your shoulders. Do not use your back muscles to raise your upper torso. You may adjust the placement of your hands to make yourself more comfortable. 4.Hold this position for 5 seconds while you keep your back relaxed. 5.Slowly return to lying flat on the floor. Bridges Repeat these steps 10 times: 1.Lie on your back on a firm bed or the floor. 2.Bend your knees so they are pointing toward the ceiling and your feet are flat on the floor. Yourarms should be flat at your sides, next to your body. 3.Tighten your buttocks muscles and lift your buttocks off the floor until your waist is at almost the same height as your knees. You should feel the muscles working in your buttocks and the back of your thighs. If you do not feel these muscles, slide your feet 1 2 inches (2.5 5 cm) farther away from your buttocks. 4.Hold this position for 3 5 seconds. 5.Slowly lower your hips to the starting position, and allow your buttocks muscles to relax completely. If this exercise is too easy, try doing it with your arms crossed over your chest. Abdominal crunches Repeat these steps 5 10 times: 1.Lie on your back on a firm bed or the floor with your legs extended. 2.Bend your knees so they are pointing toward the ceiling and your feet are flat on the floor. 3.Cross your arms over your chest. 4.Tip your chin slightly toward your chest without bending your neck. 5.Tighten your abdominal muscles and slowly raise your torso high enough to lift your shoulder blades a tiny bit off the floor. Avoid raising your torso higher than that because it can put too much stress on your lower back and does not help to strengthen your abdominal muscles. 6.Slowly return to your starting position. Back lifts Repeat these steps 5 10 times: 1.Lie on your abdomen (face-down) with your arms at your sides, and rest your forehead on the floor. 2.Tighten the muscles in your legs and your buttocks. 3.Slowly lift your chest off the floor while you keep your hips pressed to the floor. Keep the backof your head in line with the curve in your back. Your eyes should be looking at the floor. 4.Hold this position for 3 5 seconds. 5.Slowly return to your starting position. Contact a health care provider if: Your back pain or discomfort gets much worse when you do an exercise. Your worsening back pain or discomfort does not lessen within 2 hours after you exercise. If you have any of these problems, stop doing these exercises right away. Do not do them again unless your health care provider says that you can. Get help right away if: You develop sudden, severe back pain. If this happens, stop doing the exercises right away. Do not do them again unless your health care provider says that you can. This information is not intended to replace advice given to you by your health care provider. Make sure you discuss any questions you have with your health care provider. Document Revised: 12/15/2021 Document Reviewed: 09/02/2021 [employer] Patient Education 2022 [employer]. Follow Up Care 04/21/2023 13:02:20 With:Yocasta SMITH, CREDIT COLLECTIONS CLERK-UPPER MARKER, Myron Hamilton Address: [address] [place] [phone] When: only if needed [facility] [place] 09-14-2023 Hospital Discharge instructions Patient Education 03/17/2023 14:43:00 Type 2 Diabetes Mellitus, Self-Care, Adult Type 2 Diabetes Mellitus, Self-Care, Adult Caring for yourself after you have been diagnosed with type 2 diabetes (type 2 diabetes mellitus) means keeping your blood sugar (glucose) under control with a balance of: Nutrition. Exercise. Lifestyle changes. Medicines or insulin, if needed. Support from your team of health care providers and others. What are the risks? Having type 2 diabetes can put you at risk for other long-term (chronic) conditions, such as heart disease and kidney disease. Your health care provider may prescribe medicines to help prevent complications from diabetes. How to monitor your blood glucose Check your blood glucose every day or as often as told by your health care provider. Have your A1C (hemoglobin A1C) level checked two or more times a year, or as often as told by your health care provider. Your health care provider will set personalized treatment goals for you. Generally, the goal of treatment is to maintain the following blood glucose levels: ?Before meals: 80 130 mg/dL (4.4 7.2 mmol/L). ?After meals: below 180 mg/dL (10 mmol/L). ?A1C level: less than 7%. How to manage hyperglycemia and hypoglycemia Hyperglycemia symptoms Hyperglycemia, also called high blood glucose, occurs when blood glucose is too high. Make sure youknow the early signs of hyperglycemia, such as: Increased thirst. Hunger. Feeling very tired. Needing to urinate more often than usual. Blurry vision. Hypoglycemia symptoms Hypoglycemia, also called low blood glucose, occurs with a blood glucose level at or below 70 mg/dL(3.9 mmol/L). Diabetes medicines lower your blood glucose and can cause hypoglycemia. The risk for hypoglycemia increases during or after exercise, during sleep, during illness, and when skipping meals or not eating for a long time (fasting). It is important to know the symptoms of hypoglycemia and treat it right away. Always have a 99-moipmqeow-mzmyyl carbohydrate snack with you to treat low blood glucose. Family members and close friends should also know the symptoms and understand how to treat hypoglycemia, in case you are not able to treat yourself. Symptoms may include: Hunger. Anxiety. Sweating and feeling clammy. Dizziness or feeling light-headed. Sleepiness. Increased heart rate. Irritability. Tingling or numbness around the mouth, lips, or tongue. Restless sleep. Severe hypoglycemia is when your blood glucose level is at or below 54 mg/dL (3 mmol/L). Severe hypoglycemia is an emergency. Do not wait to see if the symptoms will go away. Get medical help right away. Call your local emergency services (911 in the [place] Do not drive yourself to the hospital. If you have severe hypoglycemia and you cannot eat or drink, you may need glucagon. A family memberor close friend should learn how to check your blood glucose and how to give you glucagon. Ask yourhealth care provider if you need to have an emergency glucagon kit available. Follow these instructions at home: Medicines Take prescribed insulin or diabetes medicines as told by your health care provider. Do not run out of insulin or other diabetes medicines. Plan ahead so you always have these available. If you use insulin, adjust your dosage based on your physical activity and what foods you eat. Yourhealth care provider will tell you how to adjust your dosage. Take oohr-ysv-ivjgcoo and prescription medicines only as told by your health care provider. Eating and drinking What you eat and drink affects your blood glucose and your insulin dosage. Making good choices helps to control your diabetes and prevent other health problems. A healthy meal plan includes eating lean proteins, complex carbohydrates, fresh fruits and vegetables, low-fat dairy products, and healthy fats. Make an appointment to see a registered dietitian to help you create an eating plan that is right for you. Make sure that you: Follow instructions from your health care provider about eating or drinking restrictions. Drink enough fluid to keep your urine pale yellow. Keep a record of the carbohydrates that you eat. Do this by reading food labels and learning the standard serving sizes of foods. Follow your sick-day plan whenever you cannot eat or drink as usual. Make this plan in advance withyour health care provider. Activity Stay active. Exercise regularly, as told by your health care provider. This may include: ?Stretching and doing strength exercises, such as yoga or weight lifting, two or more times a week. ?Doing 150 minutes or more of moderate-intensity or vigorous-intensity exercise each week. This could be brisk walking, biking, or water aerobics. ?Spread out your activity over 3 or more days of the week. ?Do not go more than 2 days in a row without doing some kind of physical activity. When you start a new exercise or activity, work with your health care provider to adjust your insulin, medicines, or food intake as needed. Lifestyle Do not use any products that contain nicotine or tobacco. These products include cigarettes, chewing tobacco, and vaping devices, such as e-cigarettes. If you need help quitting, ask your health careprovider. If you drink alcohol and your health care provider says that it is safe for you: ?Limit how much you have to: ?0 1 drink a day for women who are not . ?0 2 drinks a day for men. ?Know how much alcohol is in your drink. In the [place] one drink equals one 12 oz bottle of beer (355 mL), one 5 oz glass of wine (148 mL), or one 1 oz glass of hard liquor (44 mL). Learn to manage stress. If you need help with this, ask your health care provider. Take care of your body Keep your immunizations up to date. In addition to getting vaccinations as told by your health careprovider, it is recommended that you get vaccinated against the following illnesses: ?The flu (influenza). Get a flu shot every year. ?Pneumonia. ?Hepatitis B. Schedule an eye exam soon after your diagnosis, and then one time every year after that. Check your skin and feet every day for cuts, bruises, redness, blisters, or sores. Schedule a foot exam with your health care provider once every year. [place] your teeth and gums two times a day, and floss one or more times a day. Visit your dentist one or more times every 6 months. Maintain a healthy weight. General instructions Share your diabetes management plan with people in your workplace, school, and household. Carry a medical alert card or wear medical alert jewelry. Keep all follow-up visits. This is important. Questions to ask your health care provider Should I meet with a certified diabetes care and adult secondary education instructor? Where can I find a support group for people with diabetes? Where to find more information For help and guidance and for more information about diabetes, please visit: [place] [employer] (ADA): www.diabetes.org [place] [employer] Care and Education Specialists (ADCES): www.diabeteseducator.org International Diabetes Federation (IDF): www.idf.org Summary Caring for yourself after you have been diagnosed with type 2 diabetes (type 2 diabetes mellitus) means keeping your blood sugar (glucose) under control with a balance of nutrition, exercise, lifestyle changes, and medicine. Check your blood glucose every day, as often as told by your health care provider. Having diabetes can put you at risk for other long-term (chronic) conditions, such as heart diseaseand kidney disease. Your health care provider may prescribe medicines to help prevent complicationsfrom diabetes. Share your diabetes management plan with people in your workplace, school, and household. Keep all follow-up visits. This is important. This information is not intended to replace advice given to you by your health care provider. Make sure you discuss any questions you have with your health care provider. Document Revised: 11/18/2021 Document Reviewed: 11/18/2021 [employer] Patient Education 2022 [employer]. 03/17/2023 14:42:58 DASH Eating Plan DASH Eating Plan DASH stands for Dietary Approaches to Stop Hypertension. The DASH eating plan is a healthy eating plan that has been shown to: Reduce high blood pressure (hypertension). Reduce your risk for type 2 diabetes, heart disease, and stroke. Help with weight loss. What are tips for following this plan? Reading food labels Check food labels for the amount of salt (sodium) per serving. Choose foods with less than 5 percent of the Daily Value of sodium. Generally, foods with less than 300 milligrams (mg) of sodium per serving fit into this eating plan. To find whole grains, look for the word whole as the first word in the ingredient list. Shopping Buy products labeled as low-sodium or no salt added. Buy fresh foods. Avoid canned foods and pre-made or frozen meals. Cooking Avoid adding salt when cooking. Use salt-free seasonings or herbs instead of table salt or sea salt. Check with your health care provider or pharmacist before using salt substitutes. Do not hodges foods. Cook foods using healthy methods such as baking, boiling, grilling, roasting, andbroiling instead. Cook with heart-healthy oils, such as olive, canola, avocado, soybean, or sunflower oil. Meal planning Eat a balanced diet that includes: ?4 or more servings of fruits and 4 or more servings of vegetables each day. Try to fill one-half of your plate with fruits and vegetables. ?6 8 servings of whole grains each day. ?Less than 6 oz (170 g) of lean meat, poultry, or fish each day. A 3-oz (85-g) serving of meat is about the same size as a deck of cards. One egg equals 1 oz (28 g). ?2 3 servings of low-fat dairy each day. One serving is 1 cup (237 mL). ?1 serving of nuts, seeds, or beans 5 times each week. ?2 3 servings of heart-healthy fats. Healthy fats called omega-3 fatty acids are found in foods such as walnuts, flaxseeds, fortified milks, and eggs. These fats are also found in cold-water fish, such as sardines, salmon, and mackerel. Limit how much you eat of: ?Canned or prepackaged foods. ?Food that is high in trans fat, such as some fried foods. ?Food that is high in saturated fat, such as fatty meat. ?Desserts and other sweets, sugary drinks, and other foods with added sugar. ?Full-fat dairy products. Do not salt foods before eating. Do not eat more than 4 egg yolks a week. Try to eat at least 2 vegetarian meals a week. Eat more home-cooked food and less restaurant, buffet, and fast food. Lifestyle When eating at a restaurant, ask that your food be prepared with less salt or no salt, if possible. If you drink alcohol: ?Limit how much you use to: ?0 1 drink a day for women who are not . ?0 2 drinks a day for men. ?Be aware of how much alcohol is in your drink. In the [place] one drink equals one 12 oz bottle of beer (355 mL), one 5 oz glass of wine (148 mL), or one 1 oz glass of hard liquor (44 mL). General information Avoid eating more than 2,300 mg of salt a day. If you have hypertension, you may need to reduce your sodium intake to 1,500 mg a day. Work with your health care provider to maintain a healthy body weight or to lose weight. Ask what an ideal weight is for you. Get at least 30 minutes of exercise that causes your heart to beat faster (aerobic exercise) most days of the week. Activities may include walking, swimming, or biking. Work with your health care provider or dietitian to adjust your eating plan to your individual calorie needs. What foods should I eat? Fruits All fresh, dried, or frozen fruit. Canned fruit in natural juice (without added sugar). Vegetables Fresh or frozen vegetables (raw, steamed, roasted, or grilled). Low-sodium or reduced-sodium tomatoand vegetable juice. Low-sodium or reduced-sodium tomato sauce and tomato paste. Low-sodium or reduced-sodium canned vegetables. Grains Whole-grain or whole-wheat bread. Whole-grain or whole-wheat pasta. Brown rice. Oatmeal. Quinoa. Bulgur. Whole-grain and low-sodium cereals. Emma bread. Low- fat, low-sodium crackers. Whole-wheat flour tortillas. Meats and other proteins Skinless chicken or turkey. Ground chicken or turkey. Pork with fat trimmed off. Fish and seafood. Egg whites. Dried beans, peas, or lentils. Unsalted nuts, nut butters, and seeds. Unsalted canned beans. Lean cuts of beef with fat trimmed off. Low-sodium, lean precooked or cured meat, such as sausages or meat loaves. Dairy Low-fat (1%) or fat-free (skim) milk. Reduced-fat, low-fat, or fat-free cheeses. Nonfat, low-sodiumricotta or cottage cheese. Low-fat or nonfat yogurt. Low-fat, low-sodium cheese. Fats and oils Soft margarine without trans fats. Vegetable oil. Reduced-fat, low-fat, or light mayonnaise and salad dressings (reduced-sodium). Canola, safflower, olive, avocado, soybean, and sunflower oils. Avocado. Seasonings and condiments Herbs. Spices. Seasoning mixes without salt. Other foods Unsalted popcorn and pretzels. Fat-free sweets. The items listed above may not be a complete list of foods and beverages you can eat. Contact a dietitian for more information. What foods should I avoid? Fruits Canned fruit in a light or heavy syrup. Fried fruit. Fruit in cream or butter sauce. Vegetables Creamed or fried vegetables. Vegetables in a cheese sauce. Regular canned vegetables (not low-sodium or reduced-sodium). Regular canned tomato sauce and paste (not low-sodium or reduced-sodium). Regular tomato and vegetable juice (not low-sodium or reduced-sodium). Pickles. Olives. Grains Baked goods made with fat, such as croissants, muffins, or some breads. Dry pasta or rice meal packs. Meats and other proteins Fatty cuts of meat. Ribs. Fried meat. Manjarrez. Bologna, salami, and other precooked or cured meats, such as sausages or meat loaves. Fat from the back of a pig (fatback). Bratwurst. Salted nuts and seeds. Canned beans with added salt. Canned or smoked fish. Whole eggs or egg yolks. Chicken or turkey with skin. Dairy Whole or 2% milk, cream, and racv-egm-fynm. Whole or full-fat cream cheese. Whole-fat or sweetened yogurt. Full-fat cheese. Nondairy creamers. Whipped toppings. Processed cheese and cheese spreads. Fats and oils Butter. Stick margarine. Lard. Shortening. Ghee. Manjarrez fat. Tropical oils, such as coconut, palm kernel, or palm oil. Seasonings and condiments Onion salt, garlic salt, seasoned salt, table salt, and sea salt. Worcestershire sauce. Tartar sauce. Barbecue sauce. Teriyaki sauce. Soy sauce, including reduced-sodium. Steak sauce. Canned and packaged gravies. Fish sauce. Oyster sauce. Cocktail sauce. Store-bought horseradish. Ketchup. Mustard. Meat flavorings and tenderizers. Bouillon cubes. Hot sauces. Pre-made or packaged marinades. Pre-made or packaged taco seasonings. Relishes. Regular salad dressings. Other foods Salted popcorn and pretzels. The items listed above may not be a complete list of foods and beverages you should avoid. Contact a dietitian for more information. Where to find more information National Heart, Lung, and Blood [place]: www.nhlbi.nih.gov [place] [employer]: www.heart.org Academy of Nutrition and Dietetics: www.eatright.org National Kidney Foundation: www.kidney.org Summary The DASH eating plan is a healthy eating plan that has been shown to reduce high blood pressure (hypertension). It may also reduce your risk for type 2 diabetes, heart disease, and stroke. When on the DASH eating plan, aim to eat more fresh fruits and vegetables, whole grains, lean proteins, low-fat dairy, and heart-healthy fats. With the DASH eating plan, you should limit salt (sodium) intake to 2,300 mg a day. If you have hypertension, you may need to reduce your sodium intake to 1,500 mg a day. Work with your health care provider or dietitian to adjust your eating plan to your individual calorie needs. This information is not intended to replace advice given to you by your health care provider. Make sure you discuss any questions you have with your health care provider. Document Revised: 05/23/2020 Document Reviewed: 05/23/2020 [employer] Patient Education 2022 [employer]. 03/17/2023 14:42:56 Insomnia Insomnia Insomnia is a sleep disorder that makes it difficult to fall asleep or stay asleep. Insomnia can cause fatigue, low energy, difficulty concentrating, mood swings, and poor performance at work or school. There are three different ways to classify insomnia: Difficulty falling asleep. Difficulty staying asleep. Waking up too early in the morning. Any type of insomnia can be long-term (chronic) or short-term (acute). Both are common. Short-term insomnia usually lasts for 3 months or less. Chronic insomnia occurs at least three times a week forlonger than 3 months. What are the causes? Insomnia may be caused by another condition, situation, or substance, such as: Having certain mental health conditions, such as anxiety and depression. Using caffeine, alcohol, tobacco, or drugs. Having gastrointestinal conditions, such as gastroesophageal reflux disease (GERD). Having certain medical conditions. These include: ?Asthma. ?Alzheimer's disease. ?Stroke. ?Chronic pain. ?An overactive thyroid gland (hyperthyroidism). Other sleep disorders, such as restless legs syndrome and sleep apnea. Menopause. Sometimes, the cause of insomnia may not be known. What increases the risk? Risk factors for insomnia include: Gender. Females are affected more often than males. Age. Insomnia is more common as people get older. Stress and certain medical and mental health conditions. Lack of exercise. Having an irregular work schedule. This may include working night shifts and traveling between different time zones. What are the signs or symptoms? If you have insomnia, the main symptom is having trouble falling asleep or having trouble staying asleep. This may lead to other symptoms, such as: Feeling tired or having low energy. Feeling nervous about going to sleep. Not feeling rested in the morning. Having trouble concentrating. Feeling irritable, anxious, or depressed. How is this diagnosed? This condition may be diagnosed based on: Your symptoms and medical history. Your health care provider may ask about: ?Your sleep habits. ?Any medical conditions you have. ?Your mental health. A physical exam. How is this treated? Treatment for insomnia depends on the cause. Treatment may focus on treating an underlying condition that is causing the insomnia. Treatment may also include: Medicines to help you sleep. Counseling or therapy. Lifestyle adjustments to help you sleep better. Follow these instructions at home: Eating and drinking Limit or avoid alcohol, caffeinated beverages, and products that contain nicotine and tobacco, especially close to bedtime. These can disrupt your sleep. Do not eat a large meal or eat spicy foods right before bedtime. This can lead to digestive discomfort that can make it hard for you to sleep. Sleep habits Keep a sleep diary to help you and your health care provider figure out what could be causing your insomnia. Write down: ?When you sleep. ?When you wake up during the night. ?How well you sleep and how rested you feel the next day. ?Any side effects of medicines you are taking. ?What you eat and drink. Make your bedroom a dark, comfortable place where it is easy to fall asleep. ?Put up shades or blackout curtains to block light from outside. ?Use a white noise machine to block noise. ?Keep the temperature cool. Limit screen use before bedtime. This includes: ?Not watching TV. ?Not using your smartphone, tablet, or computer. Stick to a routine that includes going to bed and waking up at the same times every day and night. This can help you fall asleep faster. Consider making a quiet activity, such as reading, part of your nighttime routine. Try to avoid taking naps during the day so that you sleep better at night. Get out of bed if you are still awake after 15 minutes of trying to sleep. Keep the lights down, but try reading or doing a quiet activity. When you feel sleepy, go back to bed. General instructions Take jeun-bne-ipbvbew and prescription medicines only as told by your health care provider. Exercise regularly as told by your health care provider. However, avoid exercising in the hours right before bedtime. Use relaxation techniques to manage stress. Ask your health care provider to suggest some techniques that may work well for you. These may include: ?Breathing exercises. ?Routines to release muscle tension. ?Visualizing peaceful scenes. Make sure that you drive carefully. Do not drive if you feel very sleepy. Keep all follow-up visits. This is important. Contact a health care provider if: You are tired throughout the day. You have trouble in your daily routine due to sleepiness. You continue to have sleep problems, or your sleep problems get worse. Get help right away if: You have thoughts about hurting yourself or someone else. Get help right away if you feel like you may hurt yourself or others, or have thoughts about takingyour own life. Go to your nearest emergency room or: Call 911. Call the National Suicide Prevention Lifeline at or 149. This is open 24 hours a day. Text the Crisis Text Line at 995760. Summary Insomnia is a sleep disorder that makes it difficult to fall asleep or stay asleep. Insomnia can be long-term (chronic) or short-term (acute). Treatment for insomnia depends on the cause. Treatment may focus on treating an underlying condition that is causing the insomnia. Keep a sleep diary to help you and your health care provider figure out what could be causing your insomnia. This information is not intended to replace advice given to you by your health care provider. Make sure you discuss any questions you have with your health care provider. Document Revised: 05/31/2022 Document Reviewed: 05/31/2022 [employer] Patient Education 2022 [employer]. Follow Up Care 03/15/2023 07:59:17 With:Yocasta SMITH, CREDIT COLLECTIONS CLERK-UPPER MARKER, Myron Hamilton Address: [address] [place] [phone] When: only if needed Comments:keep may appt, fax sleep study to [facility] [place] 05-25-2023 Hospital Discharge instructions Patient Education 11/25/2022 15:14:33 Heart Failure Eating Plan Heart Failure Eating Plan Heart failure, also called congestive heart failure, occurs when your heart does not pump blood well enough to meet your body's needs for oxygen-rich blood. Heart failure is a long-term (chronic) condition. Living with heart failure can be challenging. Following your health care provider's instructions about a healthy lifestyle and working with a dietitian to choose the right foods may help to improve your symptoms. An eating plan for someone with heart failure will include changes that limit the intake of salt (sodium) and unhealthy fat. What are tips for following this plan? Reading food labels Check food labels for the amount of sodium per serving. Choose foods that have less than 140 mg (milligrams) of sodium in each serving. Check food labels for the number of calories per serving. This is important if you need to limit your daily calorie intake to lose weight. Check food labels for the serving size. If you eat more than one serving, you will be eating more sodium and calories than what is listed on the label. Look for foods that are labeled as sodium-free, very low sodium, or low sodium. ?Foods labeled as reduced sodium or lightly salted may still have more sodium than what is recommended for you. Cooking Avoid adding salt when cooking. Ask your health care provider or dietitian before using salt substitutes. Season food with salt-free seasonings, spices, or herbs. Check the label of seasoning mixes to makesure they do not contain salt. Cook with heart-healthy oils, such as olive, canola, soybean, or sunflower oil. Do not hodges foods. Cook foods using low-fat methods, such as baking, boiling, grilling, and broiling. Limit unhealthy fats when cooking by: ?Removing the skin from poultry, such as chicken. ?Removing all visible fats from meats. ?Skimming the fat off from stews, soups, and gravies before serving them. Meal planning Limit your intake of: ?Processed, canned, or prepackaged foods. ?Foods that are high in trans fat, such as fried foods. ?Sweets, desserts, sugary drinks, and other foods with added sugar. ?Full-fat dairy products, such as whole milk. Eat a balanced diet. This may include: ?4 5 servings of fruit each day and 4 5 servings of vegetables each day. At each meal, try to fill one-half of your plate with fruits and vegetables. ?Up to 6 8 servings of whole grains each day. ?Up to 2 servings of lean meat, poultry, or fish each day. One serving of meat is equal to 3 oz (85g). This is about the same size as a deck of cards. ?2 servings of low-fat dairy each day. ?Heart-healthy fats. Healthy fats called omega-3 fatty acids are found in foods such as flaxseed and cold-water fish like sardines, salmon, and mackerel. Aim to eat 25 35 g (grams) of fiber a day. Foods that are high in fiber include apples, broccoli, carrots, beans, peas, and whole grains. Do not add salt or condiments that contain salt (such as soy sauce) to foods before eating. When eating at a restaurant, ask that your food be prepared with less salt or no salt, if possible. Try to eat 2 or more vegetarian meals each week. Eat more home-cooked food and eat less restaurant, buffet, and fast food. General information Do not eat more than 2,300 mg of sodium a day. The amount of sodium that is recommended for you maybe lower, depending on your condition. Maintain a healthy body weight as directed. Ask your health care provider what a healthy weight is for you. ?Check your weight every day. ?Work with your health care provider and dietitian to make a plan that is right for you to lose weight or maintain your current weight. Limit how much fluid you drink. Ask your health care provider or dietitian how much fluid you can have each day. Limit or avoid alcohol as told by your health care provider or dietitian. Recommended foods Fruits All fresh, frozen, and canned fruits. Dried fruits, such as raisins, prunes, and cranberries. Vegetables All fresh vegetables. Vegetables that are frozen without sauce or added salt. Low-sodium or sodium-free canned vegetables. Grains Bread with less than 80 mg of sodium per slice. Whole-wheat pasta, quinoa, and brown rice. Oats andoatmeal. Barley. Millet. Grits and cream of wheat. Whole- grain and whole-wheat cold cereal. Meats and other protein foods Lean cuts of meat. Skinless chicken and turkey. Fish with high omega-3 fatty acids, such as salmon,sardines, and other cold-water fishes. Eggs. Dried beans, peas, and edamame. Unsalted nuts and nut butters. Dairy Low-fat or nonfat (skim) milk and dried milk. Rice milk, soy milk, and almond milk. Low-fat or nonfat yogurt. Small amounts of reduced-sodium block cheese. Low-sodium cottage cheese. Fats and oils [place], canola, soybean, flaxseed, avocado, or sunflower oil. Sweets and desserts Applesauce. Granola bars. Sugar-free pudding and gelatin. Frozen fruit bars. Seasoning and other foods Fresh and dried herbs. Lemon or [place] ore[place] juice. Vinegar. Low-sodium ketchup. Salt- free marinades, saladdressings, sauces, and seasonings. The items listed above may not be a complete list of foods and beverages you can eat. Contact a dietitian for more information. Foods to avoid Fruits Fruits that are dried with sodium-containing preservatives. Vegetables Canned vegetables. Frozen vegetables with sauce or seasonings. Creamed vegetables. Tunisian fries. Onion rings. Pickled vegetables and sauerkraut. Grains Bread with more than 80 mg of sodium per slice. Hot or cold cereal with more than 140 mg sodium perserving. Salted pretzels and crackers. Prepackaged breadcrumbs. Bagels, croissants, and biscuits. Meats and other protein foods Ribs and chicken wings. Manjarrez, ham, pepperoni, bologna, salami, and packaged luncheon meats. Hot dogs, bratwurst, and sausage. Canned meat. Smoked meat and fish. Salted nuts and seeds. Dairy Whole milk, zeym-jle-bnxe, and cream. Buttermilk. Processed cheese, cheese spreads, and cheese curds. Regular cottage cheese. Feta cheese. Shredded cheese. String cheese. Fats and oils Butter, lard, shortening, ghee, and manjarrez fat. Canned and packaged gravies. Seasoning and other foods Onion salt, garlic salt, table salt, and sea salt. Marinades. Regular salad dressings. Relishes, pickles, and olives. Meat flavorings and tenderizers, and bouillon cubes. Horseradish, ketchup, and mustard. [facility] sauce. Teriyaki sauce, soy sauce (including reduced sodium). Hot sauce and Tabasco sauce. Steak sauce, fish sauce, oyster sauce, and cocktail sauce. Taco seasonings. Barbecue sauce. Tartar sauce. The items listed above may not be a complete list of foods and beverages you should avoid. Contact a dietitian for more information. Summary A heart failure eating plan includes changes that limit your intake of sodium and unhealthy fat, and it may help you lose weight or maintain a healthy weight. Your health care provider may also recommend limiting how much fluid you drink. Most people with heart failure should eat no more than 2,300 mg of salt (sodium) a day. The amount of sodium that is recommended for you may be lower, depending on your condition. Contact your health care provider or dietitian before making any major changes to your diet. This information is not intended to replace advice given to you by your health care provider. Make sure you discuss any questions you have with your health care provider. Document Revised: 02/02/2021 Document Reviewed: 02/02/2021 [employer] Patient Education 2022 [employer]. 11/25/2022 15:14:21 DASH Eating Plan DASH Eating Plan DASH stands for Dietary Approaches to Stop Hypertension. The DASH eating plan is a healthy eating plan that has been shown to: Reduce high blood pressure (hypertension). Reduce your risk for type 2 diabetes, heart disease, and stroke. Help with weight loss. What are tips for following this plan? Reading food labels Check food labels for the amount of salt (sodium) per serving. Choose foods with less than 5 percent of the Daily Value of sodium. Generally, foods with less than 300 milligrams (mg) of sodium per serving fit into this eating plan. To find whole grains, look for the word whole as the first word in the ingredient list. Shopping Buy products labeled as low-sodium or no salt added. Buy fresh foods. Avoid canned foods and pre-made or frozen meals. Cooking Avoid adding salt when cooking. Use salt-free seasonings or herbs instead of table salt or sea salt. Check with your health care provider or pharmacist before using salt substitutes. Do not hodges foods. Cook foods using healthy methods such as baking, boiling, grilling, roasting, andbroiling instead. Cook with heart-healthy oils, such as olive, canola, avocado, soybean, or sunflower oil. Meal planning Eat a balanced diet that includes: ?4 or more servings of fruits and 4 or more servings of vegetables each day. Try to fill one-half of your plate with fruits and vegetables. ?6 8 servings of whole grains each day. ?Less than 6 oz (170 g) of lean meat, poultry, or fish each day. A 3-oz (85-g) serving of meat is about the same size as a deck of cards. One egg equals 1 oz (28 g). ?2 3 servings of low-fat dairy each day. One serving is 1 cup (237 mL). ?1 serving of nuts, seeds, or beans 5 times each week. ?2 3 servings of heart-healthy fats. Healthy fats called omega-3 fatty acids are found in foods such as walnuts, flaxseeds, fortified milks, and eggs. These fats are also found in cold-water fish, such as sardines, salmon, and mackerel. Limit how much you eat of: ?Canned or prepackaged foods. ?Food that is high in trans fat, such as some fried foods. ?Food that is high in saturated fat, such as fatty meat. ?Desserts and other sweets, sugary drinks, and other foods with added sugar. ?Full-fat dairy products. Do not salt foods before eating. Do not eat more than 4 egg yolks a week. Try to eat at least 2 vegetarian meals a week. Eat more home-cooked food and less restaurant, buffet, and fast food. Lifestyle When eating at a restaurant, ask that your food be prepared with less salt or no salt, if possible. If you drink alcohol: ?Limit how much you use to: ?0 1 drink a day for women who are not . ?0 2 drinks a day for men. ?Be aware of how much alcohol is in your drink. In the [place] one drink equals one 12 oz bottle of beer (355 mL), one 5 oz glass of wine (148 mL), or one 1 oz glass of hard liquor (44 mL). General information Avoid eating more than 2,300 mg of salt a day. If you have hypertension, you may need to reduce your sodium intake to 1,500 mg a day. Work with your health care provider to maintain a healthy body weight or to lose weight. Ask what an ideal weight is for you. Get at least 30 minutes of exercise that causes your heart to beat faster (aerobic exercise) most days of the week. Activities may include walking, swimming, or biking. Work with your health care provider or dietitian to adjust your eating plan to your individual calorie needs. What foods should I eat? Fruits All fresh, dried, or frozen fruit. Canned fruit in natural juice (without added sugar). Vegetables Fresh or frozen vegetables (raw, steamed, roasted, or grilled). Low-sodium or reduced-sodium tomatoand vegetable juice. Low-sodium or reduced-sodium tomato sauce and tomato paste. Low-sodium or reduced-sodium canned vegetables. Grains Whole-grain or whole-wheat bread. Whole-grain or whole-wheat pasta. Brown rice. Oatmeal. Quinoa. Bulgur. Whole-grain and low-sodium cereals. Emma bread. Low- fat, low-sodium crackers. Whole-wheat flour tortillas. Meats and other proteins Skinless chicken or turkey. Ground chicken or turkey. Pork with fat trimmed off. Fish and seafood. Egg whites. Dried beans, peas, or lentils. Unsalted nuts, nut butters, and seeds. Unsalted canned beans. Lean cuts of beef with fat trimmed off. Low-sodium, lean precooked or cured meat, such as sausages or meat loaves. Dairy Low-fat (1%) or fat-free (skim) milk. Reduced-fat, low-fat, or fat-free cheeses. Nonfat, low-sodiumricotta or cottage cheese. Low-fat or nonfat yogurt. Low-fat, low-sodium cheese. Fats and oils Soft margarine without trans fats. Vegetable oil. Reduced-fat, low-fat, or light mayonnaise and salad dressings (reduced-sodium). Canola, safflower, olive, avocado, soybean, and sunflower oils. Avocado. Seasonings and condiments Herbs. Spices. Seasoning mixes without salt. Other foods Unsalted popcorn and pretzels. Fat-free sweets. The items listed above may not be a complete list of foods and beverages you can eat. Contact a dietitian for more information. What foods should I avoid? Fruits Canned fruit in a light or heavy syrup. Fried fruit. Fruit in cream or butter sauce. Vegetables Creamed or fried vegetables. Vegetables in a cheese sauce. Regular canned vegetables (not low-sodium or reduced-sodium). Regular canned tomato sauce and paste (not low-sodium or reduced-sodium). Regular tomato and vegetable juice (not low-sodium or reduced-sodium). Pickles. Olives. Grains Baked goods made with fat, such as croissants, muffins, or some breads. Dry pasta or rice meal packs. Meats and other proteins Fatty cuts of meat. Ribs. Fried meat. Manjarrez. Bologna, salami, and other precooked or cured meats, such as sausages or meat loaves. Fat from the back of a pig (fatback). Bratwurst. Salted nuts and seeds. Canned beans with added salt. Canned or smoked fish. Whole eggs or egg yolks. Chicken or turkey with skin. Dairy Whole or 2% milk, cream, and [id number]. Whole or full-fat cream cheese. Whole-fat or sweetened yogurt. Full-fat cheese. Nondairy creamers. Whipped toppings. Processed cheese and cheese spreads. Fats and oils Butter. Stick margarine. Lard. Shortening. Ghee. Manjarrez fat. Tropical oils, such as coconut, palm kernel, or palm oil. Seasonings and condiments Onion salt, garlic salt, seasoned salt, table salt, and sea salt. [facility] sauce. Tartar sauce. Barbecue sauce. Teriyaki sauce. Soy sauce, including reduced-sodium. Steak sauce. Canned and packaged gravies. Fish sauce. Oyster sauce. Cocktail sauce. Store-bought horseradish. Ketchup. Mustard. Meat flavorings and tenderizers. Bouillon cubes. Hot sauces. Pre-made or packaged marinades. Pre-made or packaged taco seasonings. Relishes. Regular salad dressings. Other foods Salted popcorn and pretzels. The items listed above may not be a complete list of foods and beverages you should avoid. Contact a dietitian for more information. Where to find more information National Heart, Lung, and Blood [place]: www.nhlbi.nih.gov [place] [employer]: www.heart.org Academy of Nutrition and Dietetics: www.eatright.org National Kidney Foundation: www.kidney.org Summary The DASH eating plan is a healthy eating plan that has been shown to reduce high blood pressure (hypertension). It may also reduce your risk for type 2 diabetes, heart disease, and stroke. When on the DASH eating plan, aim to eat more fresh fruits and vegetables, whole grains, lean proteins, low-fat dairy, and heart-healthy fats. With the DASH eating plan, you should limit salt (sodium) intake to 2,300 mg a day. If you have hypertension, you may need to reduce your sodium intake to 1,500 mg a day. Work with your health care provider or dietitian to adjust your eating plan to your individual calorie needs. This information is not intended to replace advice given to you by your health care provider. Make sure you discuss any questions you have with your health care provider. Document Revised: 05/23/2020 Document Reviewed: 05/23/2020 [employer] Patient Education 2022 [employer]. Follow Up Care 11/10/2022 07:47:50 With:Yocasta SMITH, CREDIT COLLECTIONS CLERK-UPPER MARKER, Myron Hamilton Address: [address] [place] [phone] When:Within 6 Month(s) Comments:chronic care [facility] [place] 04-12-2023 Hospital Discharge instructions Patient Education 10/13/2022 08:14:29 Heart Failure, Self Care Heart Failure, Self Care Heart failure is a serious condition. This document explains the things you need to do to take careof yourself after a heart failure diagnosis. You may be asked to change your diet, take certain medicines, and make other lifestyle changes in order to stay as healthy as possible. Your health care provider may also give you more specific instructions. If you have problems or questions, contact your health care provider. What are the risks? Having heart failure puts you at higher risk for certain problems. These problems can get worse if you do not take good care of yourself. Problems may include: Blood clotting problems. This may cause a stroke. Damage to the kidneys, liver, or lungs. Abnormal heart rhythms. Supplies needed: Scale for monitoring weight. Blood pressure monitor. Notebook. Medicines. How to care for yourself when you have heart failure Medicines Take [id number] and prescription medicines only as told by your health care provider. Medicines reduce the workload of your heart, slow the progression of heart failure, and improve symptoms. Take your medicines every day. Do not stop taking your medicine unless your health care provider tells you to do so. Do not skip any dose of medicine. Refill your prescriptions before you run out of medicine. Eating and drinking Eat heart-healthy foods. Talk with a dietitian to make an eating plan that is right for you. ?Choose foods that contain no trans fat and are low in saturated fat and cholesterol. Healthy choices include fresh or frozen fruits and vegetables, fish, lean meats, legumes, fat-free or low-fat dairy products, and whole-grain or high-fiber foods. ?Limit salt (sodium) if told by your health care provider. Sodium restriction may reduce symptoms of heart failure. Ask a dietitian to recommend heart-healthy seasonings. ?Use healthy cooking methods instead of frying. Healthy methods include roasting, grilling, broiling, baking, poaching, steaming, and stir-frying. Limit your fluid intake, if directed by your health care provider. Fluid restriction may reduce symptoms of heart failure. Alcohol use Do not drink alcohol if: ?Your health care provider tells you not to drink. ?Your heart was damaged by alcohol, or you have severe heart failure. ?You are , may be , or are planning to become . If you drink alcohol: ?Limit how much you use to: ?0 1 drink a day for women. ?0 2 drinks a day for men. ?Be aware of how much alcohol is in your drink. In the [place] one drink equals one 12 oz bottle of beer (355 mL), one 5 oz glass of wine (148 mL), or one 1 oz glass of hard liquor (44 mL). Lifestyle Do not use any products that contain nicotine or tobacco, such as cigarettes, e- cigarettes, and chewing tobacco. If you need help quitting, ask your health care provider. ?Do not use nicotine gum or patches before talking to your health care provider. Do not use illegal drugs. Work with your health care provider to safely reach the right body weight. Do physical activity if told by your health care provider. Talk to your health care provider beforeyou begin an exercise if: ?You are an older adult. ?You have severe heart failure. Learn to manage stress. If you need help to do this, ask your health care provider. Participate in or seek rehabilitation as needed to keep or improve your independence and quality oflife. Plan rest periods when you get tired. Monitoring important information Weigh yourself every day. This will help you to notice if too much fluid is building up in your body. ?Weigh yourself every morning after you urinate and before you eat breakfast. ?Wear the same amount of clothing each time you weigh yourself. ?Record your daily weight. Provide your health care provider with your weight record. Monitor and record your pulse and blood pressure as told by your health care provider. Dealing with extreme temperatures If the weather is extremely hot: ?Avoid vigorous physical activity. ?Use air conditioning or fans, or find a cooler location. ?Avoid caffeine and alcohol. ?Wear loose-fitting, lightweight, and light-colored clothing. If the weather is extremely cold: ?Avoid vigorous activity. ?Layer your clothes. ?Wear mittens or gloves, a hat, and a scarf when you go outside. ?Avoid alcohol. Follow these instructions at home: Stay up to date with vaccines. Pneumococcal and flu (influenza) vaccines are especially important in preventing infections of the airways. Keep all follow-up visits as told by your health care provider. This is important. Contact a health care provider if you: Have a rapid weight gain. Have increasing shortness of breath. Are unable to participate in your usual physical activities. Get tired easily. Cough more than normal, especially with physical activity. Lose your appetite or feel nauseous. Have any swelling or more swelling in areas such as your hands, feet, ankles, or abdomen. Are unable to sleep because it is hard to breathe. Feel like your heart is beating quickly (palpitations). Become dizzy or light-headed when you stand up. Get help right away if you: Have trouble breathing. Notice or your family notices a change in your awareness, such as having trouble staying awake or concentrating. Have pain or discomfort in your chest. Have an episode of fainting (syncope). These symptoms may represent a serious problem that is an emergency. Do not wait to see if the symptoms will go away. Get medical help right away. Call your local emergency services (911 in the [place] Do not drive yourself to the hospital. Summary Heart failure is a serious condition. To care for yourself, you may be asked to change your diet, take certain medicines, and make other lifestyle changes. Take your medicines every day. Do not stop taking them unless your health care provider tells you to do so. Eat heart-healthy foods, such as fresh or frozen fruits and vegetables, fish, lean meats, legumes, fat-free or low-fat dairy products, and whole-grain or high-fiber foods. Ask your health care provider if you have any alcohol restrictions. You may have to stop drinking alcohol if you have severe heart failure. Contact your health care provider if you notice problems, such as rapid weight gain or a fast heartbeat. Get help right away if you faint, or have chest pain or trouble breathing. This information is not intended to replace advice given to you by your health care provider. Make sure you discuss any questions you have with your health care provider. Document Released: 10/03/2019 Document Revised: 10/02/2019 Document Reviewed: 10/03/2019 [employer] Patient Education 2020 [employer]. 10/13/2022 08:14:26 Heart Failure Medicines Heart Failure Medicines Heart failure is a condition in which the heart cannot pump enough blood through the body. This cancause symptoms such as shortness of breath, fatigue, and confusion. There are two types of heart failure: Heart failure with reduced ejection fraction. In this type, the heart muscle is weak. Heart failure with preserved ejection fraction. In this type, the heart muscle does not fill with blood properly and may be stiff. There is no cure for heart failure. However, being treated with medicines and following your healthcare provider's instructions about a healthy lifestyle can help you stay active, avoid problems, and live longer. Talk to your health care provider about all medicines that you are taking, how often you should take them, and what possible problems (side effects) they may cause. Talk with your health care provider if you have difficulty affording your medicines. What are some common medicines for heart failure? The medicines that are prescribed for you will depend on your symptoms, the type of heart failure you have, and the cause of your heart failure. In some cases, you may need to take more than one medicine. You will be prescribed the following medicines according to your type of heart failure: Heart failure with reduced ejection fraction Beta-blockers. Angiotensin-converting enzyme (DESMOND) inhibitors. Angiotensin II receptor blockers (ARBs). Angiotensin receptor neprilysin inhibitors (ARNIs). Aldosterone antagonists. Diuretics. Digoxin. Nitrates. Heart failure with preserved ejection fraction Medicines to control blood pressure, including: ?Beta-blockers. ?Angiotensin-converting enzyme (DESMOND) inhibitors. ?Angiotensin II receptor blockers (ARBs). Diuretics. Aldosterone antagonists. What should I know about beta-blockers? These medicines lower your blood pressure and slow your heart rate. This helps to lessen your heart's workload. They can help to relieve chest pain (angina). They can help to improve your heart's ability to pump. They may cause asthma attacks and shortness of breath. Because these medicines slow your heart rate, it is important not to overwork yourself while exercising. Talk to your health care provider about what your target heart rate should be while you exercise. These medicines can hide the symptoms of low blood sugar (glucose), which is also called hypoglycemia. If you have diabetes, make sure to check your blood glucose carefully. If you have hypoglycemia,talk to your health care provider about adjusting your medicines. Beta-blockers may make you feel dizzy or light-headed at first. Do not drive or use heavy machinerywhen you first start these medicines. Ask your health care provider when it is safe for you to drive. What should I know about DESMOND inhibitors or ARBs? These medicines help to widen arteries and veins. This action lowers your blood pressure and lessens the strain on your heart, making it easier for your heart to pump. They can help to lessen the symptoms of heart failure. ARBs are often used if a person cannot take DESMOND inhibitors. DESMOND inhibitors may cause a dry cough. In rare cases, DESMOND inhibitors and ARBs can cause swelling of the tongue or lips, other swelling, taste problems, and skin rashes. If these symptoms occur, stop taking the medicines and contact your health care provider. Do not take DESMOND inhibitors if you are or may become . These medicines can cause health problems in an unborn baby. These medicines may cause dizziness. You may need regular checkups and blood tests to monitor how they are working. What should I know about ARNIs? These medicines are a combination of an ARB and another medicine. They lower your blood pressure. Side effects may include dry cough, dizziness, low blood pressure, and kidney problems. Do not take ARNIs if you are already taking DESMOND inhibitors or ARBs. You may notice increased urination when taking these medicines. ARNIs can raise the amount of potassium in the blood. Your potassium levels will be monitored regularly by your health care provider. What should I know about aldosterone antagonists? They help the body to remove excess sodium through urination. This helps to lessen the amount of blood that the heart needs to pump. They can also help to lower blood pressure and improve the heart's ability to pump blood. They may cause dizziness, diarrhea, coughing, or flu-like symptoms. They should not be used if you have type 2 diabetes. They can raise the amount of potassium in the blood. Your potassium levels will be monitored regularly by your health care provider. These medicines can make men's breasts large and tender. What should I know about diuretics? Diuretics are medicines that help the body get rid of excess fluid through urination. They can alsohelp lessen your heart's workload. They help to lessen fluid buildup in the lungs, ankles, and feet. They help to lower your blood pressure. They can worsen problems with controlling urination (urinary incontinence). They may cause dizziness, headaches, muscle cramps, and an upset stomach. They can cause weak muscles, dry mouth, or confusion. It is important to drink plenty of fluids while taking these medicines, especially while exercising or on hot days. What should I know about digoxin? Digoxin helps the heart pump more blood efficiently. It also lowers your heart rate. It can help ease heart failure symptoms and may be used if other medicines do not work. It can also help with irregular heartbeat (arrhythmia). It may cause stomach problems, fatigue, headache, drowsiness, or vision problems. What should I know about nitrates? Nitrates relax the blood vessels and increase oxygen and blood supply to the heart. They also lowerthe blood pressure. They are usually taken to lessen chest pain. They may cause headaches, flushing, or irregular heartbeat. Summary A healthy lifestyle and treatment with medicine will relieve symptoms of heart failure. In some cases, you may need to take more than one medicine. It is important to talk to your health care provider about how often you should take your medicines. Do not skip a dose or change your dosage. Talk to your health care provider about possible side effects of these medicines. This information is not intended to replace advice given to you by your health care provider. Make sure you discuss any questions you have with your health care provider. Document Released: 11/04/2017 Document Revised: 07/05/2018 Document Reviewed: 11/04/2017 [employer] Patient Education 2020 [employer]. 10/13/2022 08:14:22 Heart Failure Eating Plan Heart Failure Eating Plan Heart failure, also called congestive heart failure, occurs when your heart does not pump blood well enough to meet your body's needs for oxygen-rich blood. Heart failure is a long-term (chronic) condition. Living with heart failure can be challenging. However, following your health care provider'sinstructions about a healthy lifestyle and working with a diet and youth nutritional monitor (dietitian) to choose the right foods may help to improve your symptoms. What are tips for following this plan? Reading food labels Check food labels for the amount of sodium per serving. Choose foods that have less than 140 mg (milligrams) of sodium in each serving. Check food labels for the number of calories per serving. This is important if you need to limit your daily calorie intake to lose weight. Check food labels for the serving size. If you eat more than one serving, you will be eating more sodium and calories than what is listed on the label. Look for foods that are labeled as sodium-free, very low sodium, or low sodium. ?Foods labeled as reduced sodium or lightly salted may still have more sodium than what is recommended for you. Cooking Avoid adding salt when cooking. Ask your health care provider or dietitian before using salt substitutes. Season food with salt-free seasonings, spices, or herbs. Check the label of seasoning mixes to makesure they do not contain salt. Cook with heart-healthy oils, such as olive, canola, soybean, or sunflower oil. Do not hodges foods. Cook foods using low-fat methods, such as baking, boiling, grilling, and broiling. Limit unhealthy fats when cooking by: ?Removing the skin from poultry, such as chicken. ?Removing all visible fats from meats. ?Skimming the fat off from stews, soups, and gravies before serving them. Meal planning Limit your intake of: ?Processed, canned, or pre-packaged foods. ?Foods that are high in trans fat, such as fried foods. ?Sweets, desserts, sugary drinks, and other foods with added sugar. ?Full-fat dairy products, such as whole milk. Eat a balanced diet that includes: ?4 5 servings of fruit each day and 4 5 servings of vegetables each day. At each meal, try to fill half of your plate with fruits and vegetables. ?Up to 6 8 servings of whole grains each day. ?Up to 2 servings of lean meat, poultry, or fish each day. One serving of meat is equal to 3 oz. This is about the same size as a deck of cards. ?2 servings of low-fat dairy each day. ?Heart-healthy fats. Healthy fats called omega-3 fatty acids are found in foods such as flaxseed and cold-water fish like sardines, salmon, and mackerel. Aim to eat 25 35 g (grams) of fiber a day. Foods that are high in fiber include apples, broccoli, carrots, beans, peas, and whole grains. Do not add salt or condiments that contain salt (such as soy sauce) to foods before eating. When eating at a restaurant, ask that your food be prepared with less salt or no salt, if possible. Try to eat 2 or more vegetarian meals each week. Eat more home-cooked food and eat less restaurant, buffet, and fast food. General information Do not eat more than 2,300 mg of salt (sodium) a day. The amount of sodium that is recommended for you may be lower, depending on your condition. Maintain a healthy body weight as directed. Ask your health care provider what a healthy weight is for you. ?Check your weight every day. ?Work with your health care provider and dietitian to make a plan that is right for you to lose weight or maintain your current weight. Limit how much fluid you drink. Ask your health care provider or dietitian how much fluid you can have each day. Limit or avoid alcohol as told by your health care provider or dietitian. Recommended foods The items listed may not be a complete list. Talk with your dietitian about what dietary choices are best for you. Fruits All fresh, frozen, and canned fruits. Dried fruits, such as raisins, prunes, and cranberries. Vegetables All fresh vegetables. Vegetables that are frozen without sauce or added salt. Low-sodium or sodium-free canned vegetables. Grains Bread with less than 80 mg of sodium per slice. Whole-wheat pasta, quinoa, and brown rice. Oats andoatmeal. Barley. Millet. Grits and cream of wheat. Whole- grain and whole-wheat cold cereal. Meats and other protein foods Lean cuts of meat. Skinless chicken and turkey. Fish with high omega-3 fatty acids, such as salmon,sardines, and other cold-water fishes. Eggs. Dried beans, peas, and edamame. Unsalted nuts and nut butters. Dairy Low-fat or nonfat (skim) milk and dried milk. Rice milk, soy milk, and almond milk. Low-fat or nonfat yogurt. Small amounts of reduced-sodium block cheese. Low-sodium cottage cheese. Fats and oils [place], canola, soybean, flaxseed, or sunflower oil. Avocado. Sweets and desserts Apple sauce. Granola bars. Sugar-free pudding and gelatin. Frozen fruit bars. Seasoning and other foods Fresh and dried herbs. Lemon or [place] ore[place] juice. Vinegar. Low-sodium ketchup. Salt- free marinades, saladdressings, sauces, and seasonings. The items listed above may not be a complete list of foods and beverages you can eat. Contact a dietitian for more information. Foods to avoid The items listed may not be a complete list. Talk with your dietitian about what dietary choices are best for you. Fruits Fruits that are dried with sodium-containing preservatives. Vegetables Canned vegetables. Frozen vegetables with sauce or seasonings. Creamed vegetables. [place] fries. Onion rings. Pickled vegetables and sauerkraut. Grains Bread with more than 80 mg of sodium per slice. Hot or cold cereal with more than 140 mg sodium perserving. Salted pretzels and crackers. Pre-packaged breadcrumbs. Bagels, croissants, and biscuits. Meats and other protein foods Ribs and chicken wings. Manjarrez, ham, pepperoni, bologna, salami, and packaged luncheon meats. Hot dogs, bratwurst, and sausage. Canned meat. Smoked meat and fish. Salted nuts and seeds. Dairy Whole milk, uain-[id number]-rgzs, and cream. Buttermilk. Processed cheese, cheese spreads, and cheese curds. Regular cottage cheese. Feta cheese. Shredded cheese. String cheese. Fats and oils Butter, lard, shortening, ghee, and manjarrez fat. Canned and packaged gravies. Seasoning and other foods Onion salt, garlic salt, table salt, and sea salt. Marinades. Regular salad dressings. Relishes, pickles, and olives. Meat flavorings and tenderizers, and bouillon cubes. Horseradish, ketchup, and mustard. Worcestershire sauce. Teriyaki sauce, soy sauce (including reduced sodium). Hot sauce and Tabasco sauce. Steak sauce, fish sauce, oyster sauce, and cocktail sauce. Taco seasonings. Barbecue sauce. Tartar sauce. The items listed above may not be a complete list of foods and beverages you should avoid. Contact a dietitian for more information. Summary A heart failure eating plan includes changes that limit your intake of sodium and unhealthy fat, and it may help you lose weight or maintain a healthy weight. Your health care provider may also recommend limiting how much fluid you drink. Most people with heart failure should eat no more than 2,300 mg of salt (sodium) a day. The amount of sodium that is recommended for you may be lower, depending on your condition. Contact your health care provider or dietitian before making any major changes to your diet. This information is not intended to replace advice given to you by your health care provider. Make sure you discuss any questions you have with your health care provider. Document Released: 11/04/2017 Document Revised: 08/16/2019 Document Reviewed: 11/04/2017 [employer] Patient Education 2020 [employer] 10/13/2022 08:14:21 Heart Failure and Exercise Heart Failure and Exercise Heart failure is a condition in which the heart does not fill or pump enough blood and oxygen to support your body and its functions. Heart failure is a long-term (chronic) condition. Living with heart failure can be challenging. However, following your health care provider's instructions about a healthy lifestyle may help improve your symptoms. This includes choosing the right exercise plan. Doing daily physical activity is important after a diagnosis of heart failure. You may have some activity restrictions, so talk to your health care provider before doing any exercises. What are the benefits of exercise? Exercise may: Make your heart muscles stronger. Lower your blood pressure. Lower your cholesterol. Help you lose weight. Help your bones stay strong. Improve your blood circulation. Help your body use oxygen better. This relieves symptoms such as fatigue and shortness of breath. Help your mental health by lowering the risk of depression and other problems. Improve your quality of life. Decrease your chance of hospital admission for heart failure. What is an exercise plan? An exercise plan is a set of specific exercises and training activities. You will work with your health care provider to create the exercise plan that works for you. The plan may include: Different types of exercises and how to do them. Cardiac rehabilitation exercises. These are supervised programs that are designed to strengthen your heart. What are strengthening exercises? Strengthening exercises are a type of physical activity that involves using resistance to improve your muscle strength. Strengthening exercises usually have repetitive motions. These types of exercises can include: Lifting weights. Using weight machines. Using resistance tubes and bands. Using kettlebells. Using your body weight, such as doing push-ups or squats. What are balance exercises? Balance exercises are another type of physical activity. They strengthen the muscles of the back, stomach, and pelvis (core muscles) and improve your balance. They can also lower your risk of falling. These types of exercises can include: Standing on one leg. Walking backward, sideways, and in a straight line. Standing up after sitting, without using your hands. Shifting your weight from one leg to the other. Lifting one leg in front of you. Doing olivia chi. This is a type of exercise that uses slow movements and deep breathing. How can I increase my flexibility? Having better flexibility can keep you from falling. It can also lengthen your muscles, improve your range of motion, and help your joints. You can increase your flexibility by: Doing olivia chi. Doing yoga. Stretching. How much aerobic exercise should I get? Aerobic exercises strengthen your breathing and circulation system and increase your body's use of oxygen. Examples of aerobic exercise include biking, walking, running, and swimming. Talk to your health care provider to find out how much aerobic exercise is safe for you. To do these exercises: Start exercising slowly, limiting the amount of time at first. You may need to start with 5 minutesof aerobic exercise every day. Slowly add more minutes until you can safely do at least 30 minutes of exercise at least 4 days a week. Summary Daily physical activity is important after a diagnosis of heart failure. Exercise can make your heart muscles stronger. It also offers other benefits that will improve yourhealth. Talk to your health care provider before doing any exercises. This information is not intended to replace advice given to you by your health care provider. Make sure you discuss any questions you have with your health care provider. Document Released: 11/01/2017 Document Revised: 11/04/2017 Document Reviewed: 11/01/2017 [employer] Patient Education 2020 [employer] 10/13/2022 08:14:18 Form - Daily Weight Record Daily Weight Record It is important to weigh yourself daily. To do this: Make sure you use a reliable scale. Use the same scale each day. Keep this daily weight chart near your scale. Weigh yourself each morning at the same time. Before weighing yourself: ?Take off your shoes. ?Make sure you are wearing the same amount of clothing each day. Write down your weight in the spaces on the form. Compare today's weight to yesterday's weight. Bring this form with you to your follow-up visits with your health care provider. Call your health care provider if you have concerns about your weight, including rapid weight gain or loss. Date: Weight: Date: Weight: Date: Weight: Date: Weight: Date: Weight: Date: Weight: Date: Weight: Date: Weight: Date: Weight: Date: Weight: Date: Weight: Date: Weight: Date: Weight: Date: Weight: Date: Weight: Date: Weight: Date: Weight: Date: Weight: Date: Weight: Date: Weight: Date: Weight: Date: Weight: Date: Weight: Date: Weight: Date: Weight: Date: Weight: Date: Weight: Date: Weight: Date: Weight: Date: Weight: Date: Weight: Date: Weight: Date: Weight: Date: Weight: Date: Weight: Date: Weight: Date: Weight: Date: Weight: Date: Weight: Date: Weight: Date: Weight: Date: Weight: Date: Weight: Date: Weight: Date: Weight: Date: Weight: Date: Weight: Date: Weight: Date: Weight: Date: Weight: This information is not intended to replace advice given to you by your health care provider. Make sure you discuss any questions you have with your health care provider. Document Released: 09/01/2007 Document Revised: 06/19/2018 Document Reviewed: 06/19/2018 [employer] Patient Education 2020 [employer]. Follow Up Care 09/29/2022 12:46:37 With:Carmen Haley DO Address: When:Within 1 Month(s) [facility] [place]03-29-2023 Hospital Discharge instructions Patient Education 09/29/2022 12:38:18 Steps to Quit Smoking Steps to Quit Smoking Smoking tobacco is the leading cause of preventable . It can affect almost every organ in the body. Smoking puts you and those around you at risk for developing many serious chronic diseases. Quitting smoking can be difficult, but it is one of the best things that you can do for your health. It is never too late to quit. How do I get ready to quit? When you decide to quit smoking, create a plan to help you succeed. Before you quit: Pick a date to quit. Set a date within the next 2 weeks to give you time to prepare. Write down the reasons why you are quitting. Keep this list in places where you will see it often. Tell your family, friends, and co-workers that you are quitting. Support from your loved ones can make quitting easier. Talk with your health care provider about your options for quitting smoking. Find out what treatment options are covered by your health insurance. Identify people, places, things, and activities that make you want to smoke (triggers). Avoid them. What first steps can I take to quit smoking? Throw away all cigarettes at home, at work, and in your car. Throw away smoking accessories, such as ashtrays and lighters. Clean your car. Make sure to empty the ashtray. Clean your home, including curtains and carpets. What strategies can I use to quit smoking? Talk with your health care provider about combining strategies, such as taking medicines while you are also receiving in-person counseling. Using these two strategies together makes you more likely to succeed in quitting than if you used either strategy on its own. If you are or , talk with your health care provider about finding counseling or other support strategies to quit smoking. Do not take medicine to help you quit smoking unless your health care provider tells you to do so. To quit smoking: Quit right away Quit smoking completely, instead of gradually reducing how much you smoke over a period of time. Research shows that stopping smoking right away is more successful than gradually quitting. Attend in-person counseling to help you build problem-solving skills. You are more likely to succeed in quitting if you attend counseling sessions regularly. Even short sessions of 10 minutes can be effective. Take medicine You may take medicines to help you quit smoking. Some medicines require a prescription and some youcan purchase [id number]. Medicines may have nicotine in them to replace the nicotine in cigarettes. Medicines may: Help to stop cravings. Help to relieve withdrawal symptoms. Your health care provider may recommend: Nicotine patches, gum, or lozenges. Nicotine inhalers or sprays. Non-nicotine medicine that is taken by mouth. Find resources Find resources and support systems that can help you to quit smoking and remain smoke-free after you quit. These resources are most helpful when you use them often. They include: Online chats with a counselor. Telephone quitlines. Printed self-help materials. Support groups or group counseling. Text messaging programs. Mobile phone apps or applications. Use apps that can help you stick to your quit plan by providing reminders, tips, and encouragement. There are many free apps for mobile devices as well as websites.Examples include Quit Guide from the CDC and smokefree.gov What things can I do to make it easier to quit? Reach out to your family and friends for support and encouragement. Call telephone quitlines (4-107-EPHU-NOW), reach out to support groups, or work with a counselor for support. Ask people who smoke to avoid smoking around you. Avoid places that trigger you to smoke, such as bars, parties, or smoke-break areas at work. Spend time with people who do not smoke. Lessen the stress in your life. Stress can be a smoking trigger for some people. To lessen stress, try: ?Exercising regularly. ?Doing deep-breathing exercises. ?Doing yoga. ?Meditating. ?Performing a body scan. This involves closing your eyes, scanning your body from head to toe, and noticing which parts of your body are particularly tense. Try to relax the muscles in those areas. How will I feel when I quit smoking? Day 1 to 3 weeks Within the first 24 hours of quitting smoking, you may start to feel withdrawal symptoms. These symptoms are usually most noticeable 2 3 days after quitting, but they usually do not last for more than 2 3 weeks. You may experience these symptoms: Mood swings. Restlessness, anxiety, or irritability. Trouble concentrating. Dizziness. Strong cravings for sugary foods and nicotine. Mild weight gain. Constipation. Nausea. Coughing or a sore throat. Changes in how the medicines that you take for unrelated issues work in your body. Depression. Trouble sleeping (insomnia). Week 3 and afterward After the first 2 3 weeks of quitting, you may start to notice more positive results, such as: Improved sense of smell and taste. Decreased coughing and sore throat. Slower heart rate. Lower blood pressure. Clearer skin. The ability to breathe more easily. Fewer sick days. Quitting smoking can be very challenging. Do not get discouraged if you are not successful the first time. Some people need to make many attempts to quit before they achieve long-term success. Do your best to stick to your quit plan, and talk with your health care provider if you have any questionsor concerns. Summary Smoking tobacco is the leading cause of preventable . Quitting smoking is one of the best things that you can do for your health. When you decide to quit smoking, create a plan to help you succeed. Quit smoking right away, not slowly over a period of time. When you start quitting, seek help from your health care provider, family, or friends. This information is not intended to replace advice given to you by your health care provider. Make sure you discuss any questions you have with your health care provider. Document Released: 06/14/2002 Document Revised: 09/07/2019 Document Reviewed: 09/08/2019 [employer] Patient Education 2020 [employer] 09/29/2022 12:38:01 Heart Failure Eating Plan Heart Failure Eating Plan Heart failure, also called congestive heart failure, occurs when your heart does not pump blood well enough to meet your body's needs for oxygen-rich blood. Heart failure is a long-term (chronic) condition. Living with heart failure can be challenging. However, following your health care provider'sinstructions about a healthy lifestyle and working with a diet and youth nutritional monitor (dietitian) to choose the right foods may help to improve your symptoms. What are tips for following this plan? Reading food labels Check food labels for the amount of sodium per serving. Choose foods that have less than 140 mg (milligrams) of sodium in each serving. Check food labels for the number of calories per serving. This is important if you need to limit your daily calorie intake to lose weight. Check food labels for the serving size. If you eat more than one serving, you will be eating more sodium and calories than what is listed on the label. Look for foods that are labeled as sodium-free, very low sodium, or low sodium. ?Foods labeled as reduced sodium or lightly salted may still have more sodium than what is recommended for you. Cooking Avoid adding salt when cooking. Ask your health care provider or dietitian before using salt substitutes. Season food with salt-free seasonings, spices, or herbs. Check the label of seasoning mixes to makesure they do not contain salt. Cook with heart-healthy oils, such as olive, canola, soybean, or sunflower oil. Do not hodges foods. Cook foods using low-fat methods, such as baking, boiling, grilling, and broiling. Limit unhealthy fats when cooking by: ?Removing the skin from poultry, such as chicken. ?Removing all visible fats from meats. ?Skimming the fat off from stews, soups, and gravies before serving them. Meal planning Limit your intake of: ?Processed, canned, or pre-packaged foods. ?Foods that are high in trans fat, such as fried foods. ?Sweets, desserts, sugary drinks, and other foods with added sugar. ?Full-fat dairy products, such as whole milk. Eat a balanced diet that includes: ?4 5 servings of fruit each day and 4 5 servings of vegetables each day. At each meal, try to fill half of your plate with fruits and vegetables. ?Up to 6 8 servings of whole grains each day. ?Up to 2 servings of lean meat, poultry, or fish each day. One serving of meat is equal to 3 oz. This is about the same size as a deck of cards. ?2 servings of low-fat dairy each day. ?Heart-healthy fats. Healthy fats called omega-3 fatty acids are found in foods such as flaxseed and cold-water fish like sardines, salmon, and mackerel. Aim to eat 25 35 g (grams) of fiber a day. Foods that are high in fiber include apples, broccoli, carrots, beans, peas, and whole grains. Do not add salt or condiments that contain salt (such as soy sauce) to foods before eating. When eating at a restaurant, ask that your food be prepared with less salt or no salt, if possible. Try to eat 2 or more vegetarian meals each week. Eat more home-cooked food and eat less restaurant, buffet, and fast food. General information Do not eat more than 2,300 mg of salt (sodium) a day. The amount of sodium that is recommended for you may be lower, depending on your condition. Maintain a healthy body weight as directed. Ask your health care provider what a healthy weight is for you. ?Check your weight every day. ?Work with your health care provider and dietitian to make a plan that is right for you to lose weight or maintain your current weight. Limit how much fluid you drink. Ask your health care provider or dietitian how much fluid you can have each day. Limit or avoid alcohol as told by your health care provider or dietitian. Recommended foods The items listed may not be a complete list. Talk with your dietitian about what dietary choices are best for you. Fruits All fresh, frozen, and canned fruits. Dried fruits, such as raisins, prunes, and cranberries. Vegetables All fresh vegetables. Vegetables that are frozen without sauce or added salt. Low-sodium or sodium-free canned vegetables. Grains Bread with less than 80 mg of sodium per slice. Whole-wheat pasta, quinoa, and brown rice. Oats andoatmeal. Barley. Millet. Grits and cream of wheat. Whole- grain and whole-wheat cold cereal. Meats and other protein foods Lean cuts of meat. Skinless chicken and turkey. Fish with high omega-3 fatty acids, such as salmon,sardines, and other cold-water fishes. Eggs. Dried beans, peas, and edamame. Unsalted nuts and nut butters. Dairy Low-fat or nonfat (skim) milk and dried milk. Rice milk, soy milk, and almond milk. Low-fat or nonfat yogurt. Small amounts of reduced-sodium block cheese. Low-sodium cottage cheese. Fats and oils [place], canola, soybean, flaxseed, or sunflower oil. Avocado. Sweets and desserts Apple sauce. Granola bars. Sugar-free pudding and gelatin. Frozen fruit bars. Seasoning and other foods Fresh and dried herbs. Lemon or [place] ore[place] juice. Vinegar. Low-sodium ketchup. Salt- free marinades, saladdressings, sauces, and seasonings. The items listed above may not be a complete list of foods and beverages you can eat. Contact a dietitian for more information. Foods to avoid The items listed may not be a complete list. Talk with your dietitian about what dietary choices are best for you. Fruits Fruits that are dried with sodium-containing preservatives. Vegetables Canned vegetables. Frozen vegetables with sauce or seasonings. Creamed vegetables. [place] fries. Onion rings. Pickled vegetables and sauerkraut. Grains Bread with more than 80 mg of sodium per slice. Hot or cold cereal with more than 140 mg sodium perserving. Salted pretzels and crackers. Pre-packaged breadcrumbs. Bagels, croissants, and biscuits. Meats and other protein foods Ribs and chicken wings. Manjarrez, ham, pepperoni, bologna, salami, and packaged luncheon meats. Hot dogs, bratwurst, and sausage. Canned meat. Smoked meat and fish. Salted nuts and seeds. Dairy Whole milk, [id number], and cream. Buttermilk. Processed cheese, cheese spreads, and cheese curds. Regular cottage cheese. Feta cheese. Shredded cheese. String cheese. Fats and oils Butter, lard, shortening, ghee, and manjarrez fat. Canned and packaged gravies. Seasoning and other foods Onion salt, garlic salt, table salt, and sea salt. Marinades. Regular salad dressings. Relishes, pickles, and olives. Meat flavorings and tenderizers, and bouillon cubes. Horseradish, ketchup, and mustard. Worcestershire sauce. Teriyaki sauce, soy sauce (including reduced sodium). Hot sauce and Tabasco sauce. Steak sauce, fish sauce, oyster sauce, and cocktail sauce. Taco seasonings. Barbecue sauce. Tartar sauce. The items listed above may not be a complete list of foods and beverages you should avoid. Contact a dietitian for more information. Summary A heart failure eating plan includes changes that limit your intake of sodium and unhealthy fat, and it may help you lose weight or maintain a healthy weight. Your health care provider may also recommend limiting how much fluid you drink. Most people with heart failure should eat no more than 2,300 mg of salt (sodium) a day. The amount of sodium that is recommended for you may be lower, depending on your condition. Contact your health care provider or dietitian before making any major changes to your diet. This information is not intended to replace advice given to you by your health care provider. Make sure you discuss any questions you have with your health care provider. Document Released: 11/04/2017 Document Revised: 08/16/2019 Document Reviewed: 11/04/2017 [employer] Patient Education 2020 [employer] 09/29/2022 12:37:57 Form - Daily Weight Record Daily Weight Record It is important to weigh yourself daily. To do this: Make sure you use a reliable scale. Use the same scale each day. Keep this daily weight chart near your scale. Weigh yourself each morning at the same time. Before weighing yourself: ?Take off your shoes. ?Make sure you are wearing the same amount of clothing each day. Write down your weight in the spaces on the form. Compare today's weight to yesterday's weight. Bring this form with you to your follow-up visits with your health care provider. Call your health care provider if you have concerns about your weight, including rapid weight gain or loss. Date: Weight: Date: Weight: Date: Weight: Date: Weight: Date: Weight: Date: Weight: Date: Weight: Date: Weight: Date: Weight: Date: Weight: Date: Weight: Date: Weight: Date: Weight: Date: Weight: Date: Weight: Date: Weight: Date: Weight: Date: Weight: Date: Weight: Date: Weight: Date: Weight: Date: Weight: Date: Weight: Date: Weight: Date: Weight: Date: Weight: Date: Weight: Date: Weight: Date: Weight: Date: Weight: Date: Weight: Date: Weight: Date: Weight: Date: Weight: Date: Weight: Date: Weight: Date: Weight: Date: Weight: Date: Weight: Date: Weight: Date: Weight: Date: Weight: Date: Weight: Date: Weight: Date: Weight: Date: Weight: Date: Weight: Date: Weight: Date: Weight: Date: Weight: This information is not intended to replace advice given to you by your health care provider. Make sure you discuss any questions you have with your health care provider. Document Released: 09/01/2007 Document Revised: 06/19/2018 Document Reviewed: 06/19/2018 [employer] Patient Education 2019 [employer]. Follow Up Care 09/22/2022 10:08:32 With:Carmen Haley DO Address: When:Within 2 Week(s) [facility] [place]03-24-2023 Hospital Discharge instructions Patient Education 09/24/2022 15:45:06 Blood Glucose Monitoring, Adult Blood Glucose Monitoring, Adult Monitoring your blood sugar (glucose) is an important part of managing your diabetes (diabetes mellitus). Blood glucose monitoring involves checking your blood glucose as often as directed and keeping a record (log) of your results over time. Checking your blood glucose regularly and keeping a blood glucose log can: Help you and your health care provider adjust your diabetes management plan as needed, including your medicines or insulin. Help you understand how food, exercise, illnesses, and medicines affect your blood glucose. Let you know what your blood glucose is at any time. You can quickly find out if you have low bloodglucose (hypoglycemia) or high blood glucose (hyperglycemia). Your health care provider will set individualized treatment goals for you. Your goals will be basedon your age, other medical conditions you have, and how you respond to diabetes treatment. Generally, the goal of treatment is to maintain the following blood glucose levels: Before meals (preprandial): 80 130 mg/dL (4.4 7.2 mmol/L). After meals (postprandial): below 180 mg/dL (10 mmol/L). A1c level: less than 7%. Supplies needed: Blood glucose meter. Test strips for your meter. Each meter has its own strips. You must use the strips that came with your meter. A needle to prick your finger (lancet). Do not use a lancet more than one time. A device that holds the lancet (lancing device). A journal or log book to write down your results. How to check your blood glucose 1.Wash your hands with soap and water. 2.Prick the side of your finger (not the tip) with the lancet. Use a different finger each time. 3.Gently rub the finger until a small drop of blood appears. 4.Follow instructions that come with your meter for inserting the test strip, applying blood to thestrip, and using your blood glucose meter. 5.Write down your result and any notes. Some meters allow you to use areas of your body other than your finger (alternative sites) to test your blood. The most common alternative sites are: Forearm. Thigh. Palm of the hand. If you think you may have hypoglycemia, or if you have a history of not knowing when your blood glucose is getting low (hypoglycemia unawareness), do not use alternative sites. Use your finger instead. Alternative sites may not be as accurate as the fingers, because blood flow is slower in these areas. This means that the result you get may be delayed, and it may be different from the result thatyou would get from your finger. Follow these instructions at home: Blood glucose log Every time you check your blood glucose, write down your result. Also write down any notes about things that may be affecting your blood glucose, such as your diet and exercise for the day. This information can help you and your health care provider: ?Look for patterns in your blood glucose over time. ?Adjust your diabetes management plan as needed. Check if your meter allows you to download your records to a computer. Most glucose meters store a record of glucose readings in the meter. If you have type 1 diabetes: Check your blood glucose 2 or more times a day. Also check your blood glucose: ?Before every insulin injection. ?Before and after exercise. ?Before meals. ?2 hours after a meal. ?Occasionally between 2:00 a.m. and 3:00 a.m., as directed. ?Before potentially dangerous tasks, like driving or using heavy machinery. ?At bedtime. You may need to check your blood glucose more often, up to 6 10 times a day, if you: ?Use an insulin pump. ?Need multiple daily injections (MDI). ?Have diabetes that is not well-controlled. ?Are ill. ?Have a history of severe hypoglycemia. ?Have hypoglycemia unawareness. If you have type 2 diabetes: If you take insulin or other diabetes medicines, check your blood glucose 2 or more times a day. If you are on intensive insulin therapy, check your blood glucose 4 or more times a day. Occasionally, you may also need to check between 2:00 a.m. and 3:00 a.m., as directed. Also check your blood glucose: ?Before and after exercise. ?Before potentially dangerous tasks, like driving or using heavy machinery. You may need to check your blood glucose more often if: ?Your medicine is being adjusted. ?Your diabetes is not well-controlled. ?You are ill. General tips Always keep your supplies with you. If you have questions or need help, all blood glucose meters have a 24-hour hotline phone number that you can call. You may also contact your health care provider. After you use a few boxes of test strips, adjust (calibrate) your blood glucose meter by following instructions that came with your meter. Contact a health care provider if: Your blood glucose is at or above 240 mg/dL (13.3 mmol/L) for 2 days in a row. You have been sick or have had a fever for 2 days or longer, and you are not getting better. You have any of the following problems for more than 6 hours: ?You cannot eat or drink. ?You have nausea or vomiting. ?You have diarrhea. Get help right away if: Your blood glucose is lower than 54 mg/dL (3 mmol/L). You become confused or you have trouble thinking clearly. You have difficulty breathing. You have moderate or large ketone levels in your urine. Summary Monitoring your blood sugar (glucose) is an important part of managing your diabetes (diabetes mellitus). Blood glucose monitoring involves checking your blood glucose as often as directed and keeping a record (log) of your results over time. Your health care provider will set individualized treatment goals for you. Your goals will be basedon your age, other medical conditions you have, and how you respond to diabetes treatment. Every time you check your blood glucose, write down your result. Also write down any notes about things that may be affecting your blood glucose, such as your diet and exercise for the day. This information is not intended to replace advice given to you by your health care provider. Make sure you discuss any questions you have with your health care provider. Document Released: 06/22/2004 Document Revised: 04/13/2019 Document Reviewed: 11/29/2016 [employer] Patient Education 2020 [employer]. Follow Up Care 09/13/2022 14:16:08 With:Yocasta SMITH, CREDIT COLLECTIONS CLERK-UPPER MARKER, Myron Hamilton Address: [address] [place] [phone] When: Unknown Comments:see nurse for Dr Haley's lab Tuesday. Next primary care visit in November [facility] [place] 03-22-2023 Hospital Discharge instructions Patient Education 09/22/2022 09:54:52 Heart Failure, Diagnosis Heart Failure, Diagnosis Heart failure is a condition in which the heart has trouble pumping blood because it has become weak or stiff. This means that the heart does not pump blood well enough for the body to stay healthy. For some people with heart failure, fluid may back up into the lungs. There may also be swelling (edema) in the lower legs. Heart failure is usually a long-term (chronic) condition. It is important for you to take good care of yourself and follow the treatment plan from your health care provider. What are the causes? This condition may be caused by: High blood pressure (hypertension). Hypertension causes the heart muscle to work harder than normal. This makes the heart stiff or weak. Coronary artery disease, or CAD. CAD is the buildup of cholesterol and fat (plaque) in the arteriesof the heart. Heart attack, also called myocardial infarction. This injures the heart muscle, making it hard for the heart to pump blood. Abnormal heart valves. The valves do not open and close properly, forcing the heart to pump harder to keep the blood flowing. Heart muscle disease (cardiomyopathy or myocarditis). This is damage to the heart muscle. It can increase the risk of heart failure. Lung disease. The heart works harder when the lungs are not healthy. Abnormal heart rhythms. These can lead to heart failure. What increases the risk? The risk of heart failure increases as a person ages. This condition is also more likely to developin people who: Are overweight. Are male. Smoke or chew tobacco. Abuse alcohol or illegal drugs. Have taken medicines that can damage the heart, such as chemotherapy drugs. Have diabetes. Have abnormal heart rhythms. Have thyroid problems. Have low blood counts (anemia). What are the signs or symptoms? Symptoms of this condition include: Shortness of breath with activity, such as when climbing stairs. A cough that does not go away. Swelling of the feet, ankles, legs, or abdomen. Losing weight for no reason. Trouble breathing when lying flat (orthopnea). Waking from sleep because of the need to sit up and get more air. Rapid heartbeat. Tiredness (fatigue) and loss of energy. Feeling light-headed, dizzy, or close to fainting. Loss of appetite. Nausea. Waking up more often during the night to urinate (nocturia). Confusion. How is this diagnosed? This condition is diagnosed based on: Your medical history, symptoms, and a physical exam. Diagnostic tests, which may include: ?Echocardiogram. ?Electrocardiogram (ECG). ?Chest X-ray. ?Blood tests. ?Exercise stress test. ?Radionuclide scans. ?Cardiac catheterization and angiogram. How is this treated? Treatment for this condition is aimed at managing the symptoms of heart failure. Medicines Treatment may include medicines that: Help lower blood pressure by relaxing (dilating) the blood vessels. These medicines are called DESMOND inhibitors (angiotensin-converting enzyme) and ARBs (angiotensin receptor blockers). Cause the kidneys to remove salt and water from the blood through urination (diuretics). Improve heart muscle strength and prevent the heart from beating too fast (beta blockers). Increase the force of the heartbeat (digoxin). Healthy behavior changes Treatment may also include making healthy lifestyle changes, such as: Reaching and staying at a healthy weight. Quitting smoking or chewing tobacco. Eating heart-healthy foods. Limiting or avoiding alcohol. Stopping the use of illegal drugs. Being physically active. Other treatments Other treatments may include: Procedures to open blocked arteries or repair damaged valves. Placing a pacemaker to improve heart function (cardiac resynchronization therapy). Placing a device to treat serious abnormal heart rhythms (implantable cardioverter defibrillator, or ICD). Placing a device to improve the pumping ability of the heart (left ventricular assist device, or LVAD). Receiving a healthy heart from a donor (heart transplant). This is done when other treatments have not helped. Follow these instructions at home: Manage other health conditions as told by your health care provider. These may include hypertension, diabetes, thyroid disease, or abnormal heart rhythms. Get ongoing education and support as needed. Learn as much as you can about heart failure. Keep all follow-up visits as told by your health care provider. This is important. Summary Heart failure is a condition in which the heart has trouble pumping blood because it has become weak or stiff. This condition is caused by high blood pressure and other diseases of the heart and lungs. Symptoms of this condition include shortness of breath, tiredness (fatigue), nausea, and swelling of the feet, ankles, legs, or abdomen. Treatments for this condition may include medicines, lifestyle changes, and surgery. Manage other health conditions as told by your health care provider. This information is not intended to replace advice given to you by your health care provider. Make sure you discuss any questions you have with your health care provider. Document Released: 06/20/2006 Document Revised: 09/07/2019 Document Reviewed: 09/07/2019 [employer] Patient Education 2019 [employer]. 09/22/2022 09:54:51 Heart Failure Medicines Heart Failure Medicines Heart failure is a condition in which the heart cannot pump enough blood through the body. This cancause symptoms such as shortness of breath, fatigue, and confusion. There are two types of heart failure: Heart failure with reduced ejection fraction. In this type, the heart muscle is weak. Heart failure with preserved ejection fraction. In this type, the heart muscle does not fill with blood properly and may be stiff. There is no cure for heart failure. However, being treated with medicines and following your healthcare provider's instructions about a healthy lifestyle can help you stay active, avoid problems, and live longer. Talk to your health care provider about all medicines that you are taking, how often you should take them, and what possible problems (side effects) they may cause. Talk with your health care provider if you have difficulty affording your medicines. What are some common medicines for heart failure? The medicines that are prescribed for you will depend on your symptoms, the type of heart failure you have, and the cause of your heart failure. In some cases, you may need to take more than one medicine. You will be prescribed the following medicines according to your type of heart failure: Heart failure with reduced ejection fraction Beta-blockers. Angiotensin-converting enzyme (DESMOND) inhibitors. Angiotensin II receptor blockers (ARBs). Angiotensin receptor neprilysin inhibitors (ARNIs). Aldosterone antagonists. Diuretics. Digoxin. Nitrates. Heart failure with preserved ejection fraction Medicines to control blood pressure, including: ?Beta-blockers. ?Angiotensin-converting enzyme (DESMOND) inhibitors. ?Angiotensin II receptor blockers (ARBs). Diuretics. Aldosterone antagonists. What should I know about beta-blockers? These medicines lower your blood pressure and slow your heart rate. This helps to lessen your heart's workload. They can help to relieve chest pain (angina). They can help to improve your heart's ability to pump. They may cause asthma attacks and shortness of breath. Because these medicines slow your heart rate, it is important not to overwork yourself while exercising. Talk to your health care provider about what your target heart rate should be while you exercise. These medicines can hide the symptoms of low blood sugar (glucose), which is also called hypoglycemia. If you have diabetes, make sure to check your blood glucose carefully. If you have hypoglycemia,talk to your health care provider about adjusting your medicines. Beta-blockers may make you feel dizzy or light-headed at first. Do not drive or use heavy machinerywhen you first start these medicines. Ask your health care provider when it is safe for you to drive. What should I know about DESMOND inhibitors or ARBs? These medicines help to widen arteries and veins. This action lowers your blood pressure and lessens the strain on your heart, making it easier for your heart to pump. They can help to lessen the symptoms of heart failure. ARBs are often used if a person cannot take DESMOND inhibitors. DESMOND inhibitors may cause a dry cough. In rare cases, DESMOND inhibitors and ARBs can cause swelling of the tongue or lips, other swelling, taste problems, and skin rashes. If these symptoms occur, stop taking the medicines and contact your health care provider. Do not take DESMOND inhibitors if you are or may become . These medicines can cause health problems in an unborn baby. These medicines may cause dizziness. You may need regular checkups and blood tests to monitor how they are working. What should I know about ARNIs? These medicines are a combination of an ARB and another medicine. They lower your blood pressure. Side effects may include dry cough, dizziness, low blood pressure, and kidney problems. Do not take ARNIs if you are already taking DESMOND inhibitors or ARBs. You may notice increased urination when taking these medicines. ARNIs can raise the amount of potassium in the blood. Your potassium levels will be monitored regularly by your health care provider. What should I know about aldosterone antagonists? They help the body to remove excess sodium through urination. This helps to lessen the amount of blood that the heart needs to pump. They can also help to lower blood pressure and improve the heart's ability to pump blood. They may cause dizziness, diarrhea, coughing, or flu-like symptoms. They should not be used if you have type 2 diabetes. They can raise the amount of potassium in the blood. Your potassium levels will be monitored regularly by your health care provider. These medicines can make men's breasts large and tender. What should I know about diuretics? Diuretics are medicines that help the body get rid of excess fluid through urination. They can alsohelp lessen your heart's workload. They help to lessen fluid buildup in the lungs, ankles, and feet. They help to lower your blood pressure. They can worsen problems with controlling urination (urinary incontinence). They may cause dizziness, headaches, muscle cramps, and an upset stomach. They can cause weak muscles, dry mouth, or confusion. It is important to drink plenty of fluids while taking these medicines, especially while exercising or on hot days. What should I know about digoxin? Digoxin helps the heart pump more blood efficiently. It also lowers your heart rate. It can help ease heart failure symptoms and may be used if other medicines do not work. It can also help with irregular heartbeat (arrhythmia). It may cause stomach problems, fatigue, headache, drowsiness, or vision problems. What should I know about nitrates? Nitrates relax the blood vessels and increase oxygen and blood supply to the heart. They also lowerthe blood pressure. They are usually taken to lessen chest pain. They may cause headaches, flushing, or irregular heartbeat. Summary A healthy lifestyle and treatment with medicine will relieve symptoms of heart failure. In some cases, you may need to take more than one medicine. It is important to talk to your health care provider about how often you should take your medicines. Do not skip a dose or change your dosage. Talk to your health care provider about possible side effects of these medicines. This information is not intended to replace advice given to you by your health care provider. Make sure you discuss any questions you have with your health care provider. Document Released: 11/04/2017 Document Revised: 07/05/2018 Document Reviewed: 11/04/2017 [employer] Patient Education 2020 [employer]. 09/22/2022 09:54:49 Heart Failure Eating Plan Heart Failure Eating Plan Heart failure, also called congestive heart failure, occurs when your heart does not pump blood well enough to meet your body's needs for oxygen-rich blood. Heart failure is a long-term (chronic) condition. Living with heart failure can be challenging. However, following your health care provider'sinstructions about a healthy lifestyle and working with a diet and youth nutritional monitor (dietitian) to choose the right foods may help to improve your symptoms. What are tips for following this plan? Reading food labels Check food labels for the amount of sodium per serving. Choose foods that have less than 140 mg (milligrams) of sodium in each serving. Check food labels for the number of calories per serving. This is important if you need to limit your daily calorie intake to lose weight. Check food labels for the serving size. If you eat more than one serving, you will be eating more sodium and calories than what is listed on the label. Look for foods that are labeled as sodium-free, very low sodium, or low sodium. ?Foods labeled as reduced sodium or lightly salted may still have more sodium than what is recommended for you. Cooking Avoid adding salt when cooking. Ask your health care provider or dietitian before using salt substitutes. Season food with salt-free seasonings, spices, or herbs. Check the label of seasoning mixes to makesure they do not contain salt. Cook with heart-healthy oils, such as olive, canola, soybean, or sunflower oil. Do not hodges foods. Cook foods using low-fat methods, such as baking, boiling, grilling, and broiling. Limit unhealthy fats when cooking by: ?Removing the skin from poultry, such as chicken. ?Removing all visible fats from meats. ?Skimming the fat off from stews, soups, and gravies before serving them. Meal planning Limit your intake of: ?Processed, canned, or pre-packaged foods. ?Foods that are high in trans fat, such as fried foods. ?Sweets, desserts, sugary drinks, and other foods with added sugar. ?Full-fat dairy products, such as whole milk. Eat a balanced diet that includes: ?4 5 servings of fruit each day and 4 5 servings of vegetables each day. At each meal, try to fill half of your plate with fruits and vegetables. ?Up to 6 8 servings of whole grains each day. ?Up to 2 servings of lean meat, poultry, or fish each day. One serving of meat is equal to 3 oz. This is about the same size as a deck of cards. ?2 servings of low-fat dairy each day. ?Heart-healthy fats. Healthy fats called omega-3 fatty acids are found in foods such as flaxseed and cold-water fish like sardines, salmon, and mackerel. Aim to eat 25 35 g (grams) of fiber a day. Foods that are high in fiber include apples, broccoli, carrots, beans, peas, and whole grains. Do not add salt or condiments that contain salt (such as soy sauce) to foods before eating. When eating at a restaurant, ask that your food be prepared with less salt or no salt, if possible. Try to eat 2 or more vegetarian meals each week. Eat more home-cooked food and eat less restaurant, buffet, and fast food. General information Do not eat more than 2,300 mg of salt (sodium) a day. The amount of sodium that is recommended for you may be lower, depending on your condition. Maintain a healthy body weight as directed. Ask your health care provider what a healthy weight is for you. ?Check your weight every day. ?Work with your health care provider and dietitian to make a plan that is right for you to lose weight or maintain your current weight. Limit how much fluid you drink. Ask your health care provider or dietitian how much fluid you can have each day. Limit or avoid alcohol as told by your health care provider or dietitian. Recommended foods The items listed may not be a complete list. Talk with your dietitian about what dietary choices are best for you. Fruits All fresh, frozen, and canned fruits. Dried fruits, such as raisins, prunes, and cranberries. Vegetables All fresh vegetables. Vegetables that are frozen without sauce or added salt. Low-sodium or sodium-free canned vegetables. Grains Bread with less than 80 mg of sodium per slice. Whole-wheat pasta, quinoa, and brown rice. Oats andoatmeal. Barley. Millet. Grits and cream of wheat. Whole- grain and whole-wheat cold cereal. Meats and other protein foods Lean cuts of meat. Skinless chicken and turkey. Fish with high omega-3 fatty acids, such as salmon,sardines, and other cold-water fishes. Eggs. Dried beans, peas, and edamame. Unsalted nuts and nut butters. Dairy Low-fat or nonfat (skim) milk and dried milk. Rice milk, soy milk, and almond milk. Low-fat or nonfat yogurt. Small amounts of reduced-sodium block cheese. Low-sodium cottage cheese. Fats and oils [place], canola, soybean, flaxseed, or sunflower oil. Avocado. Sweets and desserts Apple sauce. Granola bars. Sugar-free pudding and gelatin. Frozen fruit bars. Seasoning and other foods Fresh and dried herbs. Lemon or [place] juice. Vinegar. Low-sodium ketchup. Salt- free marinades, saladdressings, sauces, and seasonings. The items listed above may not be a complete list of foods and beverages you can eat. Contact a dietitian for more information. Foods to avoid The items listed may not be a complete list. Talk with your dietitian about what dietary choices are best for you. Fruits Fruits that are dried with sodium-containing preservatives. Vegetables Canned vegetables. Frozen vegetables with sauce or seasonings. Creamed vegetables. [place] fries. Onion rings. Pickled vegetables and sauerkraut. Grains Bread with more than 80 mg of sodium per slice. Hot or cold cereal with more than 140 mg sodium perserving. Salted pretzels and crackers. Pre-packaged breadcrumbs. Bagels, croissants, and biscuits. Meats and other protein foods Ribs and chicken wings. Manjarrez, ham, pepperoni, bologna, salami, and packaged luncheon meats. Hot dogs, bratwurst, and sausage. Canned meat. Smoked meat and fish. Salted nuts and seeds. Dairy Whole milk, [id number], and cream. Buttermilk. Processed cheese, cheese spreads, and cheese curds. Regular cottage cheese. Feta cheese. Shredded cheese. String cheese. Fats and oils Butter, lard, shortening, ghee, and manjarrez fat. Canned and packaged gravies. Seasoning and other foods Onion salt, garlic salt, table salt, and sea salt. Marinades. Regular salad dressings. Relishes, pickles, and olives. Meat flavorings and tenderizers, and bouillon cubes. Horseradish, ketchup, and mustard. Worcestershire sauce. Teriyaki sauce, soy sauce (including reduced sodium). Hot sauce and Tabasco sauce. Steak sauce, fish sauce, oyster sauce, and cocktail sauce. Taco seasonings. Barbecue sauce. Tartar sauce. The items listed above may not be a complete list of foods and beverages you should avoid. Contact a dietitian for more information. Summary A heart failure eating plan includes changes that limit your intake of sodium and unhealthy fat, and it may help you lose weight or maintain a healthy weight. Your health care provider may also recommend limiting how much fluid you drink. Most people with heart failure should eat no more than 2,300 mg of salt (sodium) a day. The amount of sodium that is recommended for you may be lower, depending on your condition. Contact your health care provider or dietitian before making any major changes to your diet. This information is not intended to replace advice given to you by your health care provider. Make sure you discuss any questions you have with your health care provider. Document Released: 11/04/2017 Document Revised: 08/16/2019 Document Reviewed: 11/04/2017 [employer] Patient Education 2020 [employer]. 09/22/2022 09:54:44 Heart Failure Action Plan Heart Failure Action Plan A heart failure action plan helps you understand what to do when you have symptoms of heart failure. Follow the plan that was created by you and your health care provider. Review your plan each time you visit your health care provider. Red zone These signs and symptoms mean you should get medical help right away: You have trouble breathing when resting. You have a dry cough that is getting worse. You have swelling or pain in your legs or abdomen that is getting worse. You suddenly gain more than 2 3 lb (0.9 1.4 kg) in a day, or more than 5 lb (2.3 kg) in one week. This amount may be more or less depending on your condition. You have trouble staying awake or you feel confused. You have chest pain. You do not have an appetite. You pass out. If you experience any of these symptoms: Call your local emergency services (911 in the [place] right away or seek help at the emergency department of the nearest hospital. Yellow zone These signs and symptoms mean your condition may be getting worse and you should make some changes: You have trouble breathing when you are active or you need to sleep with extra pillows. You have swelling in your legs or abdomen. You gain 2 3 lb (0.9 1.4 kg) in one day, or 5 lb (2.3 kg) in one week. This amount may be more or less depending on your condition. You get tired easily. You have trouble sleeping. You have a dry cough. If you experience any of these symptoms: Contact your health care provider within the next day. Your health care provider may adjust your medicines. Green zone These signs mean you are doing well and can continue what you are doing: You do not have shortness of breath. You have very little swelling or no new swelling. Your weight is stable (no gain or loss). You have a normal activity level. You do not have chest pain or any other new symptoms. Follow these instructions at home: Take wncn-pav-zrvwjpa and prescription medicines only as told by your health care provider. Weigh yourself daily. Your target weight is lb ( kg). ?Call your health care provider if you gain more than lb ( kg) in a day, or more than lb ( kg) in one week. Eat a heart-healthy diet. Work with a diet and youth nutritional monitor (dietitian) to create an eatingplan that is best for you. Keep all follow-up visits as told by your health care provider. This is important. Where to find more information [place] [employer]: www.heart.org Summary Follow the action plan that was created by you and your health care provider. Get help right away if you have any symptoms in the Red zone. This information is not intended to replace advice given to you by your health care provider. Make sure you discuss any questions you have with your health care provider. Document Released: 07/30/2017 Document Revised: 06/02/2018 Document Reviewed: 07/30/2017 [employer] Patient Education 2020 [employer] 09/22/2022 09:53:36 Pulmonary Edema Pulmonary Edema Pulmonary edema is a condition in which fluid collects in the air sacs of the lung. This makes it hard for the lungs to fill with air. It also prevents the lungs from moving oxygen into the bloodstream, which can affect other organs, such as the brain and kidneys. Pulmonary edema is an emergency and should be treated immediately. There are two main types of pulmonary edema: Cardiogenic. This means the pulmonary edema was caused by a problem with the heart. Noncardiogenic. This means the pulmonary edema was caused by something other than the heart, such as an injury to the lung. What are the causes? This condition is commonly caused by heart failure. When this happens, the heart is not able to properly pump blood through the body. This can lead to increased pressure in the heart and blood building up in the veins around the lungs. When blood builds up in these veins, fluid gets pushed into theair sacs of the lung. Heart failure may be caused by: Coronary artery disease. High blood pressure. Viral infection of the heart (myocarditis). Leaky or stiff heart valves. Irregular heartbeat (arrhythmia). Fluid buildup caused by kidney problems. Other causes include: Infection in the lungs (pneumonia), blood (sepsis), or other part of the body. Severe injury to the chest. Lung injury from heat or toxins, such as breathing in smoke or poisonous gas. Inhaling vomit or water (pulmonaryaspiration). Certain medicines. High altitude. What are the signs or symptoms? Symptoms of this condition include: Shortness of breath. Coughing with frothy or bloody mucus. Wheezing. Feeling like you cannot get enough air. Shallow and fast breathing. Skin that is cool and damp, and has a pale or bluish color. How is this diagnosed? This condition is diagnosed based on: Your medical history. A physical exam. Your symptoms. You may also have other tests, including: Chest X-ray. Chest CT scan. Blood tests, including checking the amount of oxygen in the blood. Sputum culture. This test checks for infection in the mucus that you cough up from your lungs. Electrocardiogram. This measures the electrical signals of the heart. Echocardiogram. This uses an ultrasound to evaluate the health of the heart. How is this treated? Initial treatment for this condition focuses on relieving your symptoms. Treatment depends on the underlying cause of the condition. This may include: Oxygen therapy. The oxygen may be given through tubes in your nose or through a face mask. In severe cases, a breathing tube is inserted into the windpipe and hooked up to a breathing machine (ventilator). Medicines. These may include medicines to: ?Help the body get rid of extra water (diuretics). ?Help the heart pump blood properly. ?Prevent or destroy blood clots. If poor heart function is the cause, treatment may also include: Procedures to open blocked arteries, repair damaged heart valves, or remove some of the damaged heart muscle. A pacemaker to help with heart function. A procedure that uses electric shocks to regulate heart rate (cardioversion). If an infection is the cause, treatment may include antibiotic medicines. Follow these instructions at home: Medicines Take jhcd-xym-gczogzz and prescription medicines only as told by your health care provider. If you were prescribed an antibiotic, take it as told by your health care provider. Do not stop taking the antibiotic even if you start to feel better. Have a plan with information about each medicine you take. This should include: ?Why you take the medicine. ?Possible side effects. ?Best time of day to take it. ?Foods to take with it, or foods to avoid when taking it. ?When to call your health care provider. Make a list of each medicine, vitamin, or herbal supplement you take. Keep the list with you at alltimes. Show it to your health care provider at each visit and before starting a new medicine. Update the list as you add or stop medicines. Lifestyle Exercise regularly as told by your health care provider. It is important to do it safely. You can do this by: ?Pacing your activities to avoid shortness of breath or chest pain. ?Resting for at least 1 hour before and after meals. ?Asking about cardiac rehabilitation programs. These may include education, exercise plans, and counseling. Eat a heart-healthy diet that is low in salt (sodium), saturated fat, and cholesterol. Your health care provider may recommend foods that are high in fiber, such as fresh fruits and vegetables, wholegrains, and beans. Do not use any products that contain nicotine or tobacco, such as cigarettes and e-cigarettes. If you need help quitting, ask your health care provider. General instructions Maintain a healthy weight. Keep a record of your weight: ?Record your hospital or clinic weight. When you get home, compare it to your scale and record yourweight. ?Weigh yourself first thing each morning after you urinate and before you eat breakfast. Wear the same amount of clothing each time. Record the weights. ?Share your weight record with your health care provider. Daily weights are important in detecting the body's retention of excess fluid. ?Tell your health care provider right away if you gain weight quickly. Your medicines may need to be adjusted. Check and record your blood pressure as often as told by your health care provider. Bring the records with you to clinic visits. Consider therapy or joining a support group. This may help with any stress, fear, or anxiety. Keep all follow-up visits as told by your health care provider. This is important. Get help right away if: You gain weight quickly. You have severe chest pain, especially if the pain is crushing or pressure-like and spreads to the arms, back, neck, or jaw. You have more swelling in your hands, feet, ankles, or abdomen. You have nausea. You have unusual sweating or your skin turns blue or pale. Your shortness of breath gets worse. You have dizziness, blurred vision, a headache, or unsteadiness. Your blood pressure is higher than 180/120. You cough up bloody mucus (sputum). You cannot sleep because it is hard to breathe. You feel a racing heart beat (palpitations). You have anxiety or a feeling that you cannot get enough air. These symptoms may represent a serious problem that is an emergency. Do not wait to see if the symptoms will go away. Get medical help right away. Call your local emergency services (911 in the [place] Do not drive yourself to the hospital. Summary Pulmonary edema is a condition in which fluid collects in the air sacs of your lungs. If left untreated, it can lead to a medical emergency. This condition is most commonly caused by heart failure. Other causes can include infections or injury to the lungs. Take ojtl-eyy-bpbupon and prescription medicines only as told by your health care provider. This information is not intended to replace advice given to you by your health care provider. Make sure you discuss any questions you have with your health care provider. Document Released: 09/10/2003 Document Revised: 06/02/2018 Document Reviewed: 08/31/2017 [employer] Patient Education 2020 [employer] 09/22/2022 09:53:16 Steps to Quit Smoking Steps to Quit Smoking Smoking tobacco is the leading cause of preventable . It can affect almost every organ in the body. Smoking puts you and those around you at risk for developing many serious chronic diseases. Quitting smoking can be difficult, but it is one of the best things that you can do for your health. It is never too late to quit. How do I get ready to quit? When you decide to quit smoking, create a plan to help you succeed. Before you quit: Pick a date to quit. Set a date within the next 2 weeks to give you time to prepare. Write down the reasons why you are quitting. Keep this list in places where you will see it often. Tell your family, friends, and co-workers that you are quitting. Support from your loved ones can make quitting easier. Talk with your health care provider about your options for quitting smoking. Find out what treatment options are covered by your health insurance. Identify people, places, things, and activities that make you want to smoke (triggers). Avoid them. What first steps can I take to quit smoking? Throw away all cigarettes at home, at work, and in your car. Throw away smoking accessories, such as ashtrays and lighters. Clean your car. Make sure to empty the ashtray. Clean your home, including curtains and carpets. What strategies can I use to quit smoking? Talk with your health care provider about combining strategies, such as taking medicines while you are also receiving in-person counseling. Using these two strategies together makes you more likely to succeed in quitting than if you used either strategy on its own. If you are or , talk with your health care provider about finding counseling or other support strategies to quit smoking. Do not take medicine to help you quit smoking unless your health care provider tells you to do so. To quit smoking: Quit right away Quit smoking completely, instead of gradually reducing how much you smoke over a period of time. Research shows that stopping smoking right away is more successful than gradually quitting. Attend in-person counseling to help you build problem-solving skills. You are more likely to succeed in quitting if you attend counseling sessions regularly. Even short sessions of 10 minutes can be effective. Take medicine You may take medicines to help you quit smoking. Some medicines require a prescription and some youcan purchase zeux-vfc-pleijub. Medicines may have nicotine in them to replace the nicotine in cigarettes. Medicines may: Help to stop cravings. Help to relieve withdrawal symptoms. Your health care provider may recommend: Nicotine patches, gum, or lozenges. Nicotine inhalers or sprays. Non-nicotine medicine that is taken by mouth. Find resources Find resources and support systems that can help you to quit smoking and remain smoke-free after you quit. These resources are most helpful when you use them often. They include: Online chats with a counselor. Telephone quitlines. Printed self-help materials. Support groups or group counseling. Text messaging programs. Mobile phone apps or applications. Use apps that can help you stick to your quit plan by providing reminders, tips, and encouragement. There are many free apps for mobile devices as well as websites.Examples include Quit Guide from the CDC and smokefree.gov What things can I do to make it easier to quit? Reach out to your family and friends for support and encouragement. Call telephone quitlines (NOW), reach out to support groups, or work with a counselor for support. Ask people who smoke to avoid smoking around you. Avoid places that trigger you to smoke, such as bars, parties, or smoke-break areas at work. Spend time with people who do not smoke. Lessen the stress in your life. Stress can be a smoking trigger for some people. To lessen stress, try: ?Exercising regularly. ?Doing deep-breathing exercises. ?Doing yoga. ?Meditating. ?Performing a body scan. This involves closing your eyes, scanning your body from head to toe, and noticing which parts of your body are particularly tense. Try to relax the muscles in those areas. How will I feel when I quit smoking? Day 1 to 3 weeks Within the first 24 hours of quitting smoking, you may start to feel withdrawal symptoms. These symptoms are usually most noticeable 2 3 days after quitting, but they usually do not last for more than 2 3 weeks. You may experience these symptoms: Mood swings. Restlessness, anxiety, or irritability. Trouble concentrating. Dizziness. Strong cravings for sugary foods and nicotine. Mild weight gain. Constipation. Nausea. Coughing or a sore throat. Changes in how the medicines that you take for unrelated issues work in your body. Depression. Trouble sleeping (insomnia). Week 3 and afterward After the first 2 3 weeks of quitting, you may start to notice more positive results, such as: Improved sense of smell and taste. Decreased coughing and sore throat. Slower heart rate. Lower blood pressure. Clearer skin. The ability to breathe more easily. Fewer sick days. Quitting smoking can be very challenging. Do not get discouraged if you are not successful the first time. Some people need to make many attempts to quit before they achieve long-term success. Do your best to stick to your quit plan, and talk with your health care provider if you have any questionsor concerns. Summary Smoking tobacco is the leading cause of preventable . Quitting smoking is one of the best things that you can do for your health. When you decide to quit smoking, create a plan to help you succeed. Quit smoking right away, not slowly over a period of time. When you start quitting, seek help from your health care provider, family, or friends. This information is not intended to replace advice given to you by your health care provider. Make sure you discuss any questions you have with your health care provider. Document Released: 06/14/2002 Document Revised: 09/07/2019 Document Reviewed: 09/08/2019 [employer] Patient Education 2020 [employer] 09/22/2022 09:53:10 Health Risks of Smoking Health Risks of Smoking Smoking cigarettes is very bad for your health. Tobacco smoke has over 200 known poisons in it. It contains the poisonous gases nitrogen oxide and carbon monoxide. There are over 60 chemicals in tobacco smoke that cause cancer. Smoking is difficult to quit because a chemical in tobacco, called nicotine, causes addiction or dependence. When you smoke and inhale, nicotine is absorbed rapidly into the bloodstream through your lungs. Both inhaled and non-inhaled nicotine may be addictive. What are the risks of cigarette smoke? Cigarette smokers have an increased risk of many serious medical problems, including: Lung cancer. Lung disease, such as pneumonia, bronchitis, and emphysema. Chest pain (angina) and heart attack because the heart is not getting enough oxygen. Heart disease and peripheral blood vessel disease. High blood pressure (hypertension). Stroke. Oral cancer, including cancer of the lip, mouth, or voice box. Bladder cancer. Pancreatic cancer. Cervical cancer. complications, including premature . Stillbirths and smaller babies, defects, and genetic damage to sperm. Early menopause. Lower estrogen level for women. Infertility. Facial wrinkles. Blindness. Increased risk of broken bones (fractures). Senile dementia. Stomach ulcers and internal bleeding. Delayed wound healing and increased risk of complications during surgery. Even smoking lightly shortens your life expectancy by several years. Because of secondhand smoke exposure, children of smokers have an increased risk of the following: Sudden infant syndrome (SIDS). Respiratory infections. Lung cancer. Heart disease. Ear infections. What are the benefits of quitting? There are many health benefits of quitting smoking. Here are some of them: Within days of quitting smoking, your risk of having a heart attack decreases, your blood flow improves, and your lung capacity improves. Blood pressure, pulse rate, and breathing patterns start returning to normal soon after quitting. Within months, your lungs may clear up completely. Quitting for 10 years reduces your risk of developing lung cancer and heart disease to almost that of a nonsmoker. People who quit may see an improvement in their overall quality of life. How do I quit smoking? Smoking is an addiction with both physical and psychological effects, and longtime habits can be hard to change. Your health care provider can recommend: Programs and community resources, which may include group support, education, or talk therapy. Prescription medicines to help reduce cravings. Nicotine replacement products, such as patches, gum, and nasal sprays. Use these products only as directed. Do not replace cigarette smoking with electronic cigarettes, which are commonly called e-cigarettes. The safety of e-cigarettes is not known, and some may contain harmful chemicals. A combination of two or more of these methods. Where to find more information [employer]: www.lung.org [employer]: www.cancer.org Summary Smoking cigarettes is very bad for your health. Cigarette smokers have an increased risk of many serious medical problems, including several cancers, heart disease, and stroke. Smoking is an addiction with both physical and psychological effects, and longtime habits can be hard to change. By stopping right away, you can greatly reduce the risk of medical problems for you and your family. To help you quit smoking, your health care provider can recommend programs, community resources, prescription medicines, and nicotine replacement products such as patches, gum, and nasal sprays. This information is not intended to replace advice given to you by your health care provider. Make sure you discuss any questions you have with your health care provider. Document Released: 07/28/2005 Document Revised: 09/21/2018 Document Reviewed: 06/24/2017 [employer] Patient Education 2020 [employer] 09/22/2022 09:52:53 Cooking With Less Salt Cooking With Less Salt Cooking with less salt is one way to reduce the amount of sodium you get from food. Depending on your condition and overall health, your health care provider or diet and youth nutritional monitor (dietitian) may recommend that you reduce your sodium intake. Most people should have less than 2,300 milligrams (mg) of sodium each day. If you have high blood pressure (hypertension), you may need to limit your sodium to 1,500 mg each day. Follow the tips below to help reduce your sodium intake. What do I need to know about cooking with less salt? Shopping Buy sodium-free or low-sodium products. Look for the following words on food labels: ?Low-sodium. ?Sodium-free. ?Reduced-sodium. ?No salt added. ?Unsalted. Buy fresh or frozen vegetables. Avoid canned vegetables. Avoid buying meats or protein foods that have been injected with broth or saline solution. Avoid cured or smoked meats, such as hot dogs, manjarrez, salami, ham, and bologna. Reading food labels Check the food label before buying or using packaged ingredients. Look for products with no more than 140 mg of sodium in one serving. Do not choose foods with salt as one of the first three ingredients on the ingredients list. If salt is one of the first three ingredients, it usually means the item is high in sodium, because ingredients are listed in order of amount in the food item. Cooking Use herbs, seasonings without salt, and spices as substitutes for salt in foods. Use sodium-free baking soda when baking. [place], braise, or roast foods to add flavor with less salt. Avoid adding salt to pasta, rice, or hot cereals while cooking. Drain and rinse canned vegetables before use. Avoid adding salt when cooking sweets and desserts. Cook with low-sodium ingredients. What are some salt alternatives? The following are herbs, seasonings, and spices that can be used instead of salt to give taste to your food. Herbs should be fresh or dried. Do not choose packaged mixes. Next to the name of the herb, spice, or seasoning are some examples of foods you can pair it with. Herbs [place] leaves Soups, meat and vegetable dishes, and spaghetti sauce. Basil [place] dishes, soups, pasta, and fish dishes. Cilantro Meat, poultry, and vegetable dishes. [place] powder Marinades and [place]inean dishes. Chives Salad dressings and potato dishes. Cumin [place] dishes, couscous, and meat dishes. Dill Fish dishes, sauces, and salads. Fennel Meat and vegetable dishes, breads, and cookies. Garlic (do not use garlic salt) [place] dishes, meat dishes, salad dressings, and sauces. Marjoram Soups, potato dishes, and meat dishes. Oregano Pizza and spaghetti sauce. Parsley Salads, soups, pasta, and meat dishes. Zakia And[place] dishes, salad dressings, soups, and red meats. Saffron Fish dishes, pasta, and some poultry dishes. Jose Stuffings and sauces. Tarragon Fish and poultry dishes. Thyme Stuffing, meat, and fish dishes. Seasonings Lemon juice Fish dishes, poultry dishes, vegetables, and salads. Vinegar Salad dressings, vegetables, and fish dishes. Spices Cinnamon Sweet dishes, such as cakes, cookies, and puddings. Cloves Gingerbread, puddings, and marinades for meats. [place] Vegetable dishes, fish and poultry dishes, and stir-hodges dishes. Kristy Vegetables dishes, fish dishes, and stir-hodges dishes. Nutmeg Pasta, vegetables, poultry, fish dishes, and custard. What are some low-sodium ingredients and foods? Fresh or frozen fruits and vegetables with no sauce added. Fresh or frozen whole meats, poultry, and fish with no sauce added. Eggs. Noodles, pasta, quinoa, rice. Shredded or puffed wheat or puffed rice. Regular or quick oats. Milk, yogurt, hard cheeses, and low-sodium cheeses. Good cheese choices include Serbian, [place], and mozzarella. Always check the label for the serving size and sodium content. Unsalted butter or margarine. Unsalted nuts. Sherbet or ice cream (keep to cup per serving). Homemade pudding. Sodium-free baking soda and baking powder. This is not a complete list of low-sodium ingredients and foods. Contact your dietitian for more options. Summary Cooking with less salt is one way to reduce the amount of sodium that you get from food. Buy sodium-free or low-sodium products. Check the food label before using or buying packaged ingredients. Use herbs, seasonings without salt, and spices as substitutes for salt in foods. This information is not intended to replace advice given to you by your health care provider. Make sure you discuss any questions you have with your health care provider. Document Released: 06/20/2006 Document Revised: 06/02/2018 Document Reviewed: 06/28/2017 [employer] Patient Education 2020 [employer] 09/22/2022 09:52:44 BMI for Adults BMI for Adults Body mass index (BMI) is a number that is calculated from a person's weight and height. BMI may help to estimate how much of a person's weight is composed of fat. BMI can help identify those who may be at higher risk for certain medical problems. How is BMI used with adults? BMI is used as a screening tool to identify possible weight problems. It is used to check whether aperson is obese, overweight, healthy weight, or underweight. How is BMI calculated? BMI measures your weight and compares it to your height. This can be done either in [place] ([place] or metric measurements. Note that charts are available to help you find your BMI quickly and easily without having to do these calculations yourself. To calculate your BMI in [place] measurements, your health care provider will: 1.Measure your weight in pounds (lb). 2.Multiply the number of pounds by 703. For example, for a person who weighs 180 lb, multiply that number by 703, which equals 126,540. 3.Measure your height in inches (in). Then multiply that number by itself to get a measurement called inches squared. For example, for a person who is 70 in tall, the inches squared measurement is 70 in x 70 in, which equals 4900 inches squared. 4.Divide the total from Step 2 (number of lb x 703) by the total from Step 3 (inches squared): 126,540 4900 = 25.8. This is your BMI. To calculate your BMI in metric measurements, your health care provider will: 1.Measure your weight in kilograms (kg). 2.Measure your height in meters (m). Then multiply that number by itself to get a measurement called meters squared. For example, for a person who is 1.75 m tall, the meters squared measurement is 1.75 m x 1.75 m, which is equal to 3.1 meters squared. 3.Divide the number of kilograms (your weight) by the meters squared number. In this example: 70 3.1 = 22.6. This is your BMI. How is BMI interpreted? To interpret your results, your health care provider will use BMI charts to identify whether you are underweight, normal weight, overweight, or obese. The following guidelines will be used: Underweight: BMI less than 18.5. Normal weight: BMI between 18.5 and 24.9. Overweight: BMI between 25 and 29.9. Obese: BMI of 30 and above. Please note: Weight includes both fat and muscle, so someone with a muscular build, such as an athlete, may havea BMI that is higher than 24.9. In cases like these, BMI is not an accurate measure of body fat. To determine if excess body fat is the cause of a BMI of 25 or higher, further assessments may needto be done by a health care provider. BMI is usually interpreted in the same way for men and women. Why is BMI a useful tool? BMI is useful in two ways: Identifying a weight problem that may be related to a medical condition, or that may increase the risk for medical problems. Promoting lifestyle and diet changes in order to reach a healthy weight. Summary Body mass index (BMI) is a number that is calculated from a person's weight and height. BMI may help to estimate how much of a person's weight is composed of fat. BMI can help identify those who may be at higher risk for certain medical problems. BMI can be measured using Maldivian measurements or metric measurements. To interpret your results, your health care provider will use BMI charts to identify whether you are underweight, normal weight, overweight, or obese. This information is not intended to replace advice given to you by your health care provider. Make sure you discuss any questions you have with your health care provider. Document Released: 03/01/2005 Document Revised: 06/02/2018 Document Reviewed: 05/03/2018 [employer] Patient Education 2020 [employer]. Follow Up Care 09/17/2022 09:26:53 With:Carmen Haley DO Address: When:09/29/2022 [facility]03-13-2023 Progress note Author José Sanchez [facility] September 13, 2022 9:31pm Note Date/Time September 13, 2022 9:3 1pm [facility] [address] [place] [address] Hospitalist Progress Note Signed Patient: Carmen Bledsoe MR#: [id number] : 1960 Acct:[id number] Age/Sex: 61 / F Adm Date: 3 Loc: 4 Room: [address] [place] [address] Type: ADM IN Attending Dr: José Sanchez MD Copies to: ~ Date of Service: 09/13/2022 Subjective Subjective Narrative: Patient seen and examined. Per RN patient required Ativan couple hours ago based on CIWA scale. She appears anxious but denies any other withdrawal symptoms. States that she is determined to quit alcohol and has all the supportshe needs at home to help her stay sober and does not want to go to rehab. Exam Physical Exam Vital Signs: Temp Pulse Resp BP Pulse Ox O2 Del Method O2 Flow Rate 97.4 F L 82 20 136/84 93 L Room Air 2 09/13/22 20:00 09/13/22 20:46 09/13/22 20:46 09/13/22 20:00 09/13/22 20:00 09/13/22 20:15 09/11/22 20:33 Narrative: General: Awake, alert, oriented x3 not in acute distress HEENT: Normocephalic, atraumatic, PERRLA, normal mucosa Cardiovascular: Regular rate and rhythm , S1-S2 heard, no murmurs or gallops Lungs: No wheezing or rhonchi heard Gastrointestinal: Soft, nontender, bowel sounds heard Extremities: No edema Neurological: no sensory or motor deficit Skin: Dry and warm, no rashes or lesions Psych: Normal mood and affect Objective Lab Results 09/13/22 03:53 09/13/22 06:31 Meds Allergies and Active Meds Allergies No Known Allergies Allergy (Verified 09/10/22 11:10) Active Meds: Active Medications Generic Name Dose Route Start Last Admin Trade Name Freq PRN Reason Stop Dose Admin Acetaminophen 650 mg 09/10/22 13:25 09/13/22 20:27 Acetaminophen 325 Mg Tablet PO 09/10/23 13:24 650 mg Q6HR PRN Administration Pain Scale 1 - 3 or fever Al Hydrox/Mg Hydrox/Simethicone 30 ml 09/10/22 15:56 Mag Hydrox/Al Hydrox/Simeth 30 Ml Udc PO 09/10/23 15:55 Q4H PRN Indigestion Albuterol 2.5 mg 09/10/22 15:40 Albuterol Neb 2.5 Mg/3 Ml Vial.Neb INHALATION 09/10/23 15:39 Q3H PRN Shortness Of Breath Albuterol/Ipratropium 3 ml 09/10/22 16:00 09/13/22 20:45 Ipratropium/Albuterol 0.5-3 Mg 3 Ml Ampul.Neb INHALATION 09/10/23 15:59 3 ml QID.RESP BRISEIDA Administration Aripiprazole 2 mg 09/11/22 09:00 09/13/22 09:02 Aripiprazole 2 Mg Tablet PO 09/11/23 08:59 2 mg DAILY BRISEIDA Administration Aspirin 81 mg 09/11/22 09:00 09/13/22 09:01 Aspirin 81 Mg Tablet. PO 09/11/23 08:59 81 mg DAILY BRISEIDA Administration Atorvastatin Calcium 20 mg 09/11/22 09:00 09/13/22 09:02 Atorvastatin 20 Mg Tablet PO 09/11/23 08:59 20 mg DAILY BRISEIDA Administration Chlordiazepoxide HCl 50 mg 09/13/22 14:00 09/13/22 13:45 Chlordiazepoxide 25 Mg Capsule PO 03/12/23 13:59 50 mg TID BRISEIDA Administration Dextrose 0 gm 09/10/22 13:38 Dextrose 50% In Water 25 Gm/50 Ml Syringe IV-PUSH 09/10/23 13:37 PRN PRN Hypoglycemia Dextrose 0 gm 09/10/22 15:22 Dextrose 50% In Water 25 Gm/50 Ml Syringe IV-PUSH 09/10/23 15:21 PRN PRN Hypoglycemia Docusate Sodium 100 mg 09/10/22 13:25 Docusate 100 Mg Capsule PO 09/10/23 13:24 BID PRN Constipation Enoxaparin Sodium 40 mg 09/11/22 10:00 09/13/22 11:23 Enoxaparin 40 Mg/0.4 Ml Syringe SUBCUT 09/11/23 09:59 40 mg DAILY@10 BRISEIDA Administration Fluoxetine HCl 40 mg 09/11/22 09:00 09/13/22 09:01 Fluoxetine 20 Mg Capsule PO 09/11/23 08:59 40 mg DAILY BRISEIDA Administration Folic Acid 1 mg 09/11/22 09:00 09/13/22 09:02 Folic Acid 1 Mg Tablet PO 09/11/23 08:59 1 mg DAILY BRISEIDA Administration Furosemide 40 mg 09/10/22 16:00 09/13/22 16:03 Furosemide 40 Mg/4 Ml Vial IV-PUSH 09/10/23 15:59 40 mg BID@0800,1600 BRISEIDA Administration Glipizide 2.5 mg 09/11/22 09:30 09/13/22 09:02 Glipizide 2.5 Mg Tab.Er.24 PO 09/11/23 09:29 2.5 mg DAILY BRISEIDA Administration Glucose 0 gm 09/10/22 13:38 Dextrose 40% Gel 15 Gm Tube PO 09/10/23 13:37 PRN PRN Hypoglycemia Glucose 0 gm 09/10/22 15:22 Dextrose 40% Gel 15 Gm Tube PO 09/10/23 15:21 PRN PRN Hypoglycemia Guaifenesin 1,200 mg 09/10/22 21:00 09/13/22 20:26 Guaifenesin 600 Mg Tab.Er.12h PO 09/10/23 20:59 1,200 mg BID BRISEIDA Administration Hydralazine HCl 10 mg 09/11/22 23:39 09/11/22 23:54 Hydralazine 20 Mg/Ml Vial IV-PUSH 09/11/23 23:38 10 mg Q4H PRN Administration FOR SBP >180 Azithromycin 500 mg in 250 mls @ 250 mls/hr 09/10/22 16:00 09/13/22 16:03 Zithromax IV 09/15/22 15:59 250 mls/hr Q24H BRISEIDA Administration Insulin Aspart 0 units 09/10/22 17:00 09/13/22 16:35 Insulin Aspart 300 Units/3 Ml Insuln.Pen SUBCUT 09/10/23 16:59 12 units TID.WM.HS BRISEIDA Administration Protocol Lorazepam 0 mg 09/10/22 15:56 09/13/22 20:26 Lorazepam 1 Mg Tablet PO 03/09/23 15:55 1 mg PROTOCOL PRN Administration Alcohol Withdrawal Protocol Lorazepam 0 mg 09/10/22 15:56 Lorazepam 2 Mg/Ml Vial IV-PUSH 03/09/23 15:55 PROTOCOL PRN Alcohol Withdrawal Protocol Losartan Potassium 50 mg 09/11/22 09:00 09/13/22 09:02 Losartan 50 Mg Tablet PO 09/11/23 08:59 50 mg DAILY BRISEIDA Administration Methylprednisolone Sodium Succinate 60 mg 09/10/22 15:20 09/13/22 20:27 Methylprednisolone Sod Succ/Pf 40 Mg/Ml (1ml) Vial IV-PUSH 09/10/23 15:19 60 mg Q12HR BRISEIDA Administration Morphine Sulfate 2 mg 09/10/22 13:25 Morphine Sulfate 2 Mg/Ml Vial IV-PUSH Q4H PRN Pain Scale 8 - 10 Multivitamins 1 tab 09/11/22 09:00 09/13/22 09:02 Multivitamin 1 Tab Tablet PO 09/11/23 08:59 1 tab DAILY BRISEIDA Administration Nicotine 1 each 09/10/22 17:30 09/13/22 17:18 Nicotine Patch 14 Mg/24hr 1 Each Patch.Td24 TRANSDERML 09/23/22 17:31 1 each Q24H BRISEIDA Administration Nitroglycerin 0.4 mg 09/10/22 15:38 Nitroglycerin 0.4 Mg Tab.Subl SUBLINGUAL 09/10/23 15:37 Q5MIN.X3 PRN Chest Pain Pantoprazole Sodium 40 mg 09/11/22 09:00 09/13/22 09:02 Pantoprazole 40 Mg Tablet.Dr PO 09/11/23 08:59 40 mg DAILY BRISEIDA Administration Potassium Chloride 20 meq 09/11/22 09:00 09/13/22 09:01 Potassium Chloride Er 20 Meq Tab.Er.Prt PO 09/11/23 08:59 20 meq DAILY BRISEIDA Administration Promethazine HCl 12.5 mg 09/10/22 15:31 09/12/22 05:36 Promethazine 25 Mg/Ml Vial IV-PUSH 09/10/23 15:30 12.5 mg Q6H PRN Administration Nausea And Vomiting Sennosides 1 tab 09/10/22 13:25 Sennosides 8.6 Mg Tablet PO 09/10/23 13:24 BID PRN Constipation Sodium Chloride 0 ml 09/10/22 11:10 09/12/22 21:17 Sodium Chloride 0.9 % 10 Ml Syringe IV-PUSH 09/10/23 11:09 10 ml PRN PRN Administration Flush Sodium Chloride 10 ml 09/10/22 15:31 Sodium Chloride 0.9 % 10 Ml Vial.Pf INJECTION 09/10/23 15:30 PRN PRN Promethazine Dilution Spironolactone 25 mg 09/10/22 21:00 09/13/22 20:27 Spironolactone 25 Mg Tablet PO 09/10/23 20:59 25 mg BID BRISEIDA Administration Thiamine HCl 100 mg 09/10/22 21:00 09/13/22 20:27 Thiamine 100 Mg Tablet PO 09/10/23 20:59 100 mg BID BRISEIDA Administration A&P - Hospitalist Assessment/Plan (1) Acute respiratory failure with hypoxia: (2) Acute exacerbation of CHF (congestive heart failure): (3) COPD with acute exacerbation: Plan Acute hypoxic respiratory failure secondary to acute diastolic CHF and acute COPD exacerbations Acute decompensated systolic vs diastolic Congestive heart failure exacerbation -Patient with leg edema, shortness of breath. BNP WNL which is nonspecific in obesity. -Chest x-ray showed vascular congestion, cardiomegaly -Echocardiogram showed EF 60 to 65%, mild diastolic dysfunction -Fluid restriction 1.5 L daily -Low-sodium diet 2g daily -Continue IV Lasix 40 mg BID -Continue Aldactone -Beta-shiv when patient stabilized -Oxygen supplementation as needed -Monitor electrolytes while on diuretics Acute COPD exacerbation BRENDA on CPAP at home -Afebrile, no leukocytosis -Chest x-ray showing b/l infiltrates -Respiratory panel negative -Continue azithromycin x 5 days -Continue DuoNebs QID -Continue Solumedrol 60 q12h -Mucinex as directed -PEP as directed -Monitor for fever/leukocytosis -BiPAP at night and as needed. May use her home CPAP -Counseled on smoking cessation Chest pain, rule out ACS -Denies chest pain at this time, states it had improved after breathing treatment, likely to be pulmonary related. -Serial troponin negative x 4. -Echo noted and reviewed ? -Given full dose aspirin. Continue Aspirin and continue statin -Patient at high risk for cardiovascular event. Has multiple risk factors, HTN, HLD, DM, Morbid obesity, active smoker -Lipid profile and HbA1c acceptable -Sublingual NG PRN -Monitor for chest pain Alcohol withdrawal syndrome Alcohol use disorder High risk for alcohol withdrawal with impending DTs -Patient drinks multiple mixed drinks of alcohol on daily basis -Continue Thiamine and folate supplements -Continue CIWA protocol. Requiring multiple doses of Ativan -Increased Librium to 100 mg TID standing along with CIWA -Ativan PRN per CIWA -GI ppx with Omeprazole -Monitor for withdrawal symptoms -At high risk for DTs -Low threshold for ICU upgrade if showing any signs of DTs or CIWA >10 -Insert Bueno catheter since patient at risk of imbalance while withdrawing fromalcohol -maintain fall and seizure precautions Chronic conditions DM: insulin sliding scale for now. Adjusted. Continue home meds as appropriate Diet: Carb consistent, healthy heart, fluid restriction DVT ppx: SCDs, Lovenox GI ppx: Protonix Code status: Full Disposition: Anticipate discharge tomorrow Documented By: José Sanchez MD 09/13/222127 Signed By: <Electronically signed by José Sanchez MD> 09/13/222130 [facility] Work Phone: 1(327) 945-710703-12-2023 Progress note Author Marilyn Sun [facility] September 12, 2022 12:22pm Note Date/Time September 12, 2022 12: 13pm [facility] [address] [place] [address] Hospitalist Progress Note Signed Patient: Carmen Bledsoe MR#: [id number] : 1960 Acct:[id number] Age/Sex: 61 / F Adm Date: 3 Loc: Room: [address] [place] [address] Type: ADM IN Attending Dr: Marilyn Sun MD Copies to: ~ Date of Service: 09/12/2022 Subjective Subjective Narrative: Patient was seen and examined at bedside this morning. Respiratory sheppard, she isimproving and responding well to treatment and current management. Had withdrawal symptoms started to show. CIWA score this morning around 5. She is requiring multiple doses of Ativan along with standing doses of Librium. Patient was somnolent this morning, however she was able to answer questions andstates that she is feeling better. She did report nausea and vomiting and occasional headaches. will continue to monitor and provide symptomatic relief. Exam Physical Exam Vital Signs: Temp Pulse Resp BP Pulse Ox O2 Del Method O2 Flow Rate 97.9 F 81 20 155/88 H 94 L Room Air 2 09/12/22 11:59 09/12/22 12:00 09/12/22 12:00 09/12/22 11:59 09/12/22 11:59 09/12/22 11:59 09/11/22 20:33 Narrative: Const General: somnolent, more comfortable today, in no acute distress, morbidly obese HEENT Normal oropharyngeal mucosa without any ulcers or exudates Eyes: Conjunctiva normal Pulmonary Auscultation: diminished breath sounds, no crackles, no wheezes Cardiovascular Rate: normal rate Rhythm: regular rhythm Heart Sounds: S1 normal, S2 normal and no murmurs GI Inspection: obese Palpation: soft, not firm and nontender. No rigidity or rebound. Deferred Neuro General: alert, awake but somnolent. No obvious new focal deficit Musculoskeletal: normal range of motion Extrem General: no cyanosis, + pedal edema b/l Skin: no significant ulcers, no rash noted Psych Appearance: appropriate affect. Grossly normal Objective Lab Results 09/12/22 04:21 09/12/22 04:21 Meds Allergies and Active Meds Allergies No Known Allergies Allergy (Verified 09/10/22 11:10) Active Meds: Active Medications Generic Name Dose Route Start Last Admin Trade Name Freq PRN Reason Stop Dose Admin Acetaminophen 650 mg 09/10/22 13:25 09/12/22 03:31 Acetaminophen 325 Mg Tablet PO 09/10/23 13:24 650 mg Q6HR PRN Administration Pain Scale 1 - 3 or fever Al Hydrox/Mg Hydrox/Simethicone 30 ml 09/10/22 15:56 Mag Hydrox/Al Hydrox/Simeth 30 Ml Udc PO 09/10/23 15:55 Q4H PRN Indigestion Albuterol 2.5 mg 09/10/22 15:40 Albuterol Neb 2.5 Mg/3 Ml Vial.Neb INHALATION 09/10/23 15:39 Q3H PRN Shortness Of Breath Albuterol/Ipratropium 3 ml 09/10/22 16:00 09/12/22 12:00 Ipratropium/Albuterol 0.5-3 Mg 3 Ml Ampul.Neb INHALATION 09/10/23 15:59 3 ml QID.RESP BRISEIDA Administration Aripiprazole 2 mg 09/11/22 09:00 09/12/22 08:58 Aripiprazole 2 Mg Tablet PO 09/11/23 08:59 2 mg DAILY BRISEIDA Administration Aspirin 81 mg 09/11/22 09:00 09/12/22 08:58 Aspirin 81 Mg Tablet.Dr PO 09/11/23 08:59 81 mg DAILY BRISEIDA Administration Atorvastatin Calcium 20 mg 09/11/22 09:00 09/12/22 08:58 Atorvastatin 20 Mg Tablet PO 09/11/23 08:59 20 mg DAILY BRISEIDA Administration Chlordiazepoxide HCl 100 mg 09/11/22 22:00 09/12/22 08:57 Chlordiazepoxide 25 Mg Capsule PO 03/10/23 21:59 100 mg TID BRISEIDA Administration Dextrose 0 gm 09/10/22 13:38 Dextrose 50% In Water 25 Gm/50 Ml Syringe IV-PUSH 09/10/23 13:37 PRN PRN Hypoglycemia Dextrose 0 gm 09/10/22 15:22 Dextrose 50% In Water 25 Gm/50 Ml Syringe IV-PUSH 09/10/23 15:21 PRN PRN Hypoglycemia Docusate Sodium 100 mg 09/10/22 13:25 Docusate 100 Mg Capsule PO 09/10/23 13:24 BID PRN Constipation Enoxaparin Sodium 40 mg 09/11/22 10:00 09/12/22 10:21 Enoxaparin 40 Mg/0.4 Ml Syringe SUBCUT 09/11/23 09:59 40 mg DAILY@10 BRISEIDA Administration Fluoxetine HCl 40 mg 09/11/22 09:00 09/12/22 08:57 Fluoxetine 20 Mg Capsule PO 09/11/23 08:59 40 mg DAILY BRISEIDA Administration Folic Acid 1 mg 09/11/22 09:00 09/12/22 08:57 Folic Acid 1 Mg Tablet PO 09/11/23 08:59 1 mg DAILY BRISEIDA Administration Furosemide 40 mg 09/10/22 16:00 09/12/22 08:57 Furosemide 40 Mg/4 Ml Vial IV-PUSH 09/10/23 15:59 40 mg BID@0800,1600 BRISEIDA Administration Glipizide 2.5 mg 09/11/22 09:30 09/12/22 08:58 Glipizide 2.5 Mg Tab.Er.24 PO 03/10/24 09:29 2.5 mg DAILY BRISEIDA Administration Glucose 0 gm 09/10/22 13:38 Dextrose 40% Gel 15 Gm Tube PO 09/10/23 13:37 PRN PRN Hypoglycemia Glucose 0 gm 09/10/22 15:22 Dextrose 40% Gel 15 Gm Tube PO 09/10/23 15:21 PRN PRN Hypoglycemia Guaifenesin 1,200 mg 09/10/22 21:00 09/12/22 08:57 Guaifenesin 600 Mg Tab.Er.12h PO 09/10/23 20:59 1,200 mg BID BRISEIDA Administration Hydralazine HCl 10 mg 09/11/22 23:39 09/11/22 23:54 Hydralazine 20 Mg/Ml Vial IV-PUSH 09/11/23 23:38 10 mg Q4H PRN Administration FOR SBP >180 Azithromycin 500 mg in 250 mls @ 250 mls/hr 09/10/22 16:00 09/11/22 16:03 Zithromax IV 09/15/22 15:59 250 mls/hr Q24H BRISEIDA Administration Insulin Aspart 0 units 09/10/22 17:00 09/12/22 08:58 Insulin Aspart 300 Units/3 Ml Insuln.Pen SUBCUT 09/10/23 16:59 4 units TID.WM.HS BRISEIDA Administration Protocol Lorazepam 0 mg 09/10/22 15:56 09/12/22 05:33 Lorazepam 1 Mg Tablet PO 03/09/23 15:55 3 mg PROTOCOL PRN Administration Alcohol Withdrawal Protocol Lorazepam 0 mg 09/10/22 15:56 Lorazepam 2 Mg/Ml Vial IV-PUSH 03/09/23 15:55 PROTOCOL PRN Alcohol Withdrawal Protocol Losartan Potassium 50 mg 09/11/22 09:00 09/12/22 08:58 Losartan 50 Mg Tablet PO 09/11/23 08:59 50 mg DAILY BRISEIDA Administration Methylprednisolone Sodium Succinate 60 mg 09/10/22 15:20 09/12/22 08:57 Methylprednisolone Sod Succ/Pf 40 Mg/Ml (1ml) Vial IV-PUSH 09/10/23 15:19 60 mg Q12HR BRISEIDA Administration Morphine Sulfate 2 mg 09/10/22 13:25 Morphine Sulfate 2 Mg/Ml Vial IV-PUSH Q4H PRN Pain Scale 8 - 10 Multivitamins 1 tab 09/11/22 09:00 09/12/22 08:57 Multivitamin 1 Tab Tablet PO 09/11/23 08:59 1 tab DAILY BRISEIDA Administration Nicotine 1 each 09/10/22 17:30 09/11/22 17:16 Nicotine Patch 14 Mg/24hr 1 Each Patch.Td24 TRANSDERML 09/23/22 17:31 1 each Q24H BRISEIDA Administration Nitroglycerin 0.4 mg 09/10/22 15:38 Nitroglycerin 0.4 Mg Tab.Subl SUBLINGUAL 09/10/23 15:37 Q5MIN.X3 PRN Chest Pain Pantoprazole Sodium 40 mg 09/11/22 09:00 09/12/22 08:57 Pantoprazole 40 Mg Tablet.Dr PO 09/11/23 08:59 40 mg DAILY BRISEIDA Administration Potassium Chloride 20 meq 09/11/22 09:00 09/12/22 08:58 Potassium Chloride Er 20 Meq Tab.Er.Prt PO 09/11/23 08:59 20 meq DAILY BRISEIDA Administration Promethazine HCl 12.5 mg 09/10/22 15:31 09/12/22 05:36 Promethazine 25 Mg/Ml Vial IV-PUSH 09/10/23 15:30 12.5 mg Q6H PRN Administration Nausea And Vomiting Sennosides 1 tab 09/10/22 13:25 Sennosides 8.6 Mg Tablet PO 09/10/23 13:24 BID PRN Constipation Sodium Chloride 0 ml 09/10/22 11:10 09/10/22 12:31 Sodium Chloride 0.9 % 10 Ml Syringe IV-PUSH 09/10/23 11:09 10 ml PRN PRN Administration Flush Sodium Chloride 10 ml 09/10/22 15:31 Sodium Chloride 0.9 % 10 Ml Vial.Pf INJECTION 09/10/23 15:30 PRN PRN Promethazine Dilution Spironolactone 25 mg 09/10/22 21:00 09/12/22 08:58 Spironolactone 25 Mg Tablet PO 09/10/23 20:59 25 mg BID BRISEIDA Administration Thiamine HCl 100 mg 09/10/22 21:00 09/12/22 08:57 Thiamine 100 Mg Tablet PO 09/10/23 20:59 100 mg BID BRISEIDA Administration A&P - Hospitalist Assessment/Plan (1) Acute respiratory failure with hypoxia: (2) Acute exacerbation of CHF (congestive heart failure): (3) COPD with acute exacerbation: Plan Acute hypoxic respiratory failure secondary to acute diastolic CHF and acute COPD exacerbations Acute decompensated systolic vs diastolic Congestive heart failure exacerbation -Patient with leg edema, shortness of breath. BNP WNL which is nonspecific in obesity. -Chest x-ray showed vascular congestion, cardiomegaly -Echocardiogram showed EF 60 to 65%, mild diastolic dysfunction -Fluid restriction 1.5 L daily -Low-sodium diet 2g daily -Continue IV Lasix 40 mg BID -Continue Aldactone -Beta-shiv when patient stabilized -Oxygen supplementation as needed -Monitor electrolytes while on diuretics Acute COPD exacerbation BRENDA on CPAP at home -Afebrile, no leukocytosis -Chest x-ray showing b/l infiltrates -Respiratory panel negative -Continue azithromycin x 5 days -Continue DuoNebs QID -Continue Solumedrol 60 q12h -Mucinex as directed -PEP as directed -Monitor for fever/leukocytosis -BiPAP at night and as needed. May use her home CPAP -Counseled on smoking cessation Chest pain, rule out ACS -Denies chest pain at this time, states it had improved after breathing treatment, likely to be pulmonary related. -Serial troponin negative x 4. -Echo noted and reviewed ? -Given full dose aspirin. Continue Aspirin and continue statin -Patient at high risk for cardiovascular event. Has multiple risk factors, HTN, HLD, DM, Morbid obesity, active smoker -Lipid profile and HbA1c acceptable -Sublingual NG PRN -Monitor for chest pain Alcohol withdrawal syndrome Alcohol use disorder High risk for alcohol withdrawal with impending DTs -Patient drinks multiple mixed drinks of alcohol on daily basis -Continue Thiamine and folate supplements -Continue CIWA protocol. Requiring multiple doses of Ativan -Increased Librium to 100 mg TID standing along with CIWA -Ativan PRN per CIWA -She does have nausea, vomiting, will address with IV antiemetics -GI ppx with Omeprazole -Monitor for withdrawal symptoms -At high risk for DTs -Low threshold for ICU upgrade if showing any signs of DTs or CIWA >10 -Insert Bueno catheter since patient at risk of imbalance while withdrawing fromalcohol -maintain fall and seizure precautions Chronic conditions DM: insulin sliding scale for now. Adjusted. Continue home meds as appropriate Diet: Carb consistent, healthy heart, fluid restriction DVT ppx: SCDs, Lovenox GI ppx: Protonix Code status: Full Disposition: inpatient status Patient is improving and responding well to treatment respiratory sheppard, however,she is at high risk for DTs as she started showing symptoms of withdrawal which might get worse over the next 24-48 hours, for which she will need hospitalization with close monitoring and appropriate assessment and medicationsadministrations to control her symptoms. Low threshold for ICU if showing any signs of DTs. Marilyn Escobedo MD Internal Medicine Hospitalist Attending Physician Documented By: Marilyn Sun MD 09/12/22 12 11 Signed By: <Electronically signed by Marilyn Sun MD> 09/12/[address] [facility] Work Phone: [phone]) 570-503303-11-2023 History and physical note Author Marilyn Sun [facility] September 11, 2022 11:38am Note Date/Time September 10, 2022 1:3 6pm [facility] [address] [place] [address] Hospitalist H&P Signed with Addenda Patient: Carmen Bledsoe MR#: [id number] : 1960 Acct:[id number] Age/Sex: 61 / F Adm Date: 3 Loc: Room: [address] [place] [address] Type: ADM IN Attending Dr: Marilyn Sun MD Copies to: NON STAFF Marilyn Sun MD~ ADDENDUM2 My physical exam on admission: Const General: in moderate distress, morbidly obese, ill-appearing. HEENT Normal oropharyngeal mucosa without any ulcers or exudates Eyes: Conjunctiva normal Pulmonary Auscultation: diminished breath sounds, b/l crackles, no wheezes Cardiovascular Rate: normal rate Rhythm: regular rhythm Heart Sounds: S1 normal, S2 normal and no murmurs GI Inspection: obese Palpation: soft, not firm and nontender. No rigidity or rebound. Deferred Neuro General: alert, awake and oriented x3. No obvious new focal deficit Musculoskeletal: normal range of motion Extrem General: no cyanosis,? ++ pedal edema b/l Skin: no significant ulcers, no rash noted Psych Appearance: appropriate affect. Grossly normal Addendum Documented By: Marilyn Sun MD 09/11/22 1138 Addendum Signed By: <Electronically signed by Marilyn Sun MD> 09/11/22 1138 ADDENDUM1 Add to my assessment and plan: Alcohol use disorder High risk for alcohol withdrawal with impending DTs -Patient drinks multiple mixed drinks of alcohol on daily basis -Start Thiamine and folate supplements -initiate CIWA protocol -Will start Librium 25 mg TID standing along with CIWA -Ativan PRN per CIWA -Address nausea, vomiting with IV antiemetics -GI ppx with Omeprazole -Monitor for withdrawal symptoms Addendum Documented By: Marilyn Sun MD 09/10/22 1559 Addendum Signed By: <Electronically signed by Marilyn Sun MD> 09/10/22 1559 HPI DATE OF EXAMINATION: 09/10/22 CHIEF COMPLAINT: Chest pain/SOB HISTORY OF PRESENT ILLNESS: Patient is a 61-year-old female past medical history of diabetes, COPD, CHF, tobacco use, hypertension, GERD, hyperlipidemia, BRENDA on CPAP at home presented to the ER due to chest pain and worsening shortness of breath and lower extremity swelling over the past month. Patient denies any nausea or vomiting. She does report productive cough over the past few days with yellow sputum. Denies any fever or chills. She does report history of COPD, had PFT and was told she has COPD. she admits smoking 1/2 pack daily for many years. Patient also has BRENDA and uses by CPAP at night. In the ER, patient was found with significant lower extremities swelling as well as shortness of breath with desaturation upon minimal exertion. She was placed on oxygen supplements with improvement in saturation. Decision was made to admit for further evaluation and management. Review of Systems Review of Systems All other systems reviewed & are negative unless noted below or in HPI Review of systems: 10 systems are reviewed and are negative except as mentioned elsewhere in the documentation PMFSH Vaccinated for COVID-19?: Yes Medical History Anxiety COPD (chronic obstructive pulmonary disease) Depression Fatty liver HLD (hyperlipidemia) HTN (hypertension) Left ventricular enlargement Sleep apnea Family History Other HTN (hypertension) Social History Smoking Status: Current every day smoker Tobacco Type: cigarettes Substance Use Type: Marijuana Meds Medications and Allergies Allergies No Known Allergies Allergy (Verified 09/10/22 11:10) Home Medications aripiprazole 2 mg tablet 2 mg PO DAILY 09/10/22 [History Confirmed 09/10/22] fluoxetine 20 mg capsule 40 mg PO DAILY 09/10/22 [History Confirmed 09/10/22] furosemide 20 mg tablet 20 mg PO DAILY 09/10/22 [History Confirmed 09/10/22] glipizide 2.5 mg tablet, extended release 24 hr 2.5 mg PO DAILY 09/10/22 [History Confirmed 09/10/22] losartan 50 mg tablet 50 mg PO DAILY 09/10/22 [History Confirmed 09/10/22] pantoprazole 40 mg tablet,delayed release 40 mg PO DAILY 09/10/22 [History Confirmed 09/10/22] potassium chloride 20 mEq tablet,extended release 20 meq PO DAILY 09/10/22 [History Confirmed 09/10/22] rosuvastatin 40 mg tablet 40 mg PO DAILY 09/10/22 [History Confirmed 09/10/22] spironolactone 25 mg tablet 25 mg PO BID 09/10/22 [History Confirmed 09/10/22] Exam Physical Exam Vital Signs: Temp Pulse Resp BP Pulse Ox O2 Del Method 97.6 F 77 20 114/67 94 L Room Air 09/10/22 11:11 09/10/22 12:30 09/10/22 11:11 09/10/22 12:30 09/10/22 11:11 09/10/22 11:11 Results Lab Results Labs: Laboratory Last Values Corrected WBC 5.2 X10E3/uL (3.8-11.6) 09/10/22 11:26 Uncorrected WBC Count 5.2 x10E3/uL (3.8-11.6) 09/10/22 11:26 RBC 3.92 X10E6/uL (3.60-5.00) 09/10/22 11:26 Hgb 12.5 g/dL (11.8-15.4) 09/10/22 11:26 Hct 37.7 % (34.0-46.4) 09/10/22 11:26 MCV 96.1 fl (80-100) 09/10/22 11: MCH 31.8 pg (24.7-34.3) 09/10/22 11: MCHC 33.1 g/dL (32.0-35.0) 09/10/22 11: RDW 17.5 % (11.9-15.3) H 09/10/22 11: Plt Count 180 x10E3/uL (150-450) 09/10/22 11: MPV 7.2 fl (6.3-10.7) 09/10/22 11: Neut % (Auto) 70.7 % (.) 09/10/22 11: Lymph % (Auto) 21.5 % (.) 09/10/22 11: [place] % (Auto) 5.1 % (.) 09/10/22 11: Eos % (Auto) 1.6 % (.) 09/10/22 11: Baso % (Auto) 1.1 % (.) 09/10/22 11: Nucleat RBC Rel Count 0.3 /100 WBC (0-0.5) 09/10/22 11: Neut # (Auto) 3.7 x10E3/uL (1.8-7.7) 09/10/22 11: Lymph # (Auto) 1.1 x10E3/uL (1.00-4.8) 09/10/22 11: [place] # (Auto) 0.3 x10E3/uL (0.0-0.8) 09/10/22 11: Eos # (Auto) 0.1 x10E3/uL (0.0-0.45) 09/10/22 11: Baso # (Auto) 0.1 x10E3/uL (0.0-0.2) 09/10/22 11: Monocyte Dist Width 18.14 % (0.00-20.00) 09/10/22 11: PT 11.8 Seconds (9.0-12.9) 09/10/22 11: INR 1.0 09/10/22 11: APTT 31.2 Seconds (25.1-36.5) 09/10/22 11: PHA Creatinine Clear 109.50 09/10/22 11:26 Sodium 137 mmol/L (136-145) 09/10/22 11:26 Potassium 4.7 mmol/L (3.5-5.1) 09/10/22 11:26 Chloride 99 mmol/L (98-107) 09/10/22 11:26 Carbon Dioxide 29.0 mmol/L (21.0-31.0) 09/10/22 11:26 Anion Gap 13.7 mEq/L (6.0-15.0) 09/10/22 11:26 BUN 24 mg/dL (7-25) 09/10/22 11:26 Creatinine 0.83 mg/dL (0.60-1.20) 09/10/22 11:26 Est GFR (CKD-EPI) > 60.0 09/10/22 11:26 Glucose 91 mg/dL (74-109) 09/10/22 11:26 Calcium 9.6 mg/dL (8.6-10.3) 09/10/22 11:26 Total Bilirubin 0.4 mg/dl (0.3-1.0) 09/10/22 11:26 Direct Bilirubin 0.10 mg/dL (0.03-0.18) 09/10/22 11:26 Indirect Bilirubin 0.3 mg/dL 09/10/22 11:26 AST 71 U/L (13-39) H 09/10/22 11:26 ALT 50 U/L (7-52) 09/10/22 11:26 Alkaline Phosphatase 121 U/L (34-104) H 09/10/22 11:26 Total Creatine Kinase 39 U/L (30-223) 09/10/22 11:26 Troponin I High Sens 6.3 pg/mL (0.0-15.0) 09/10/22 11:26 B-Natriuretic Peptide 6.0 pg/mL (5-100) 09/10/22 11:26 Total Protein 7.1 gm/dL (6.4-8.9) 09/10/22 11:26 Albumin 4.4 gm/dL (3.5-5.7) 09/10/22 11:26 Globulin 2.7 gm/dL 09/10/22 11:26 Albumin/Globulin Ratio 1.6 09/10/22 11:26 A&P - Hospitalist Assessment/Plan (1) Acute respiratory failure with hypoxia: (2) Acute exacerbation of CHF (congestive heart failure): (3) COPD with acute exacerbation: Plan Acute hypoxic respiratory failure secondary to acute CHF and acute COPD exacerbations Acute decompensated systolic vs diastolic Congestive heart failure exacerbation -Patient with leg edema, shortness of breath. BNP WNL which is nonspecific in obesity. -Chest x-ray showed vascular congestion, cardiomegaly -Check echocardiogram -Fluid restriction 1.5 L daily -Low-sodium diet 2g daily -Start IV Lasix 40 mg BID -Continue Aldactone -Beta-shiv when patient stabilized -Oxygen supplementation as needed -Monitor electrolytes while on diuretics Acute COPD exacerbation BRENDA on CPAP at home -Afebrile, no leukocytosis -Chest x-ray showing b/l infiltrates -Check Respiratory panel -Start Azithromycin x 5 days -Start DuoNebs QID -Start Solumedrol 60 q12h -Give Mag sulfate 2 g IV -Mucinex as directed -PEP as directed -Monitor for fever/leukocytosis -BiPAP at night and as needed. May use her home CPAP -Counseled on smoking cessation Chest pain, rule out ACS -Follow up serial troponin and EKG -If troponin trends up, will start full anticoagulation and consult cardiology -Echo ordered -Given full dose aspirin. Start Aspirin and continue statin -Patient at high risk for cardiovascular event. Has multiple risk factors, HTN, HLD, DM, Morbid obesity, active smoker -Check Lipid profile and HbA1c -Sublingual NG PRN -Monitor for chest pain Chronic conditions DM: insulin sliding scale for now Continue home meds as appropriate Diet: Carb consistent, healthy heart, fluid restriction DVT ppx: SCDs, Lovenox GI ppx: Protonix Code status: Full Disposition: inpatient status Discussed with patient at bedside. All questions answered. In agreement with theabove plan -Based on my assessment and evaluation at this time, our working diagnosis as mentioned above, patient will require hospitalization for the reasons as listed above. I anticipate more than two midnights hospital stay to address the underlying acute illness. Marilyn Escobedo MD Internal Medicine Hospitalist Attending Physician Documented By: Marilyn Sun MD 09/10/22 13 34 Signed By: <Electronically signed by Marilyn Sun MD> 09/10/22 2820 [facility] Work Phone: 1(418) 212-712003-11-2023 Progress note Author Marilyn Sun [facility] September 11, 2022 11:36am Note Date/Time September 11, 2022 11: 07am [facility] [address] [place] [address] Hospitalist Progress Note Signed Patient: Carmen Bledsoe MR#: [id number] : 1960 Acct:[id number] Age/Sex: 61 / F Adm Date: 3 Loc: 4N Room: [address] [place] [address] Type: ADM IN Attending Dr: Marilyn Sun MD Copies to: ~ Date of Service: 09/11/2022 Subjective Subjective Narrative: Patient was seen and examined at bedside this morning. She states feeling better respiratory sheppard. Remained afebrile and hemodynamically stable. Denies nausea, vomiting. Weaning off oxygen. She did have tremors, sweating which are withdrawal symptoms from alcohol overnight required higher doses of Ativan and Librium. She is at high risk for DTs given heavy alcohol consumption. Exam Physical Exam Vital Signs: Temp Pulse Resp BP Pulse Ox O2 Del Method O2 Flow Rate 97.6 F 95 H 18 148/92 H 95 Nasal Cannula 1 09/11/22 08:11 09/11/22 08:53 09/11/22 08:53 09/11/22 08:11 09/11/22 08:11 09/11/22 08:53 09/11/22 08:53 Narrative: Const General: cooperative, more comfortable today, in no acute distress, morbidly obese HEENT Normal oropharyngeal mucosa without any ulcers or exudates Eyes: Conjunctiva normal Pulmonary Auscultation: diminished breath sounds, no crackles, no wheezes Cardiovascular Rate: normal rate Rhythm: regular rhythm Heart Sounds: S1 normal, S2 normal and no murmurs GI Inspection: obese Palpation: soft, not firm and nontender. No rigidity or rebound. Deferred Neuro General: alert, awake and oriented x3. No obvious new focal deficit Musculoskeletal: normal range of motion Extrem General: no cyanosis, ++ pedal edema b/l Skin: no significant ulcers, no rash noted Psych Appearance: appropriate affect. Grossly normal Objective Lab Results 09/11/22 04:40 09/11/22 06:06 Microbiology Results Microbiology 09/10/22 16:40 Nasopharyngeal Respiratory Panel (PCR) - Final Meds Allergies and Active Meds Allergies No Known Allergies Allergy (Verified 09/10/22 11:10) Active Meds: Active Medications Generic Name Dose Route Start Last Admin Trade Name Saskia PRN Reason Stop Dose Admin Acetaminophen 650 mg 09/10/22 13:25 09/11/22 04:04 Acetaminophen 325 Mg Tablet PO 09/10/23 13:24 650 mg Q6HR PRN Administration Pain Scale 1 - 3 or fever Al Hydrox/Mg Hydrox/Simethicone 30 ml 09/10/22 15:56 Mag Hydrox/Al Hydrox/Simeth 30 Ml Udc PO 09/10/23 15:55 Q4H PRN Indigestion Albuterol 2.5 mg 09/10/22 15:40 Albuterol Neb 2.5 Mg/3 Ml Vial.Neb INHALATION 09/10/23 15:39 Q3H PRN Shortness Of Breath Albuterol/Ipratropium 3 ml 09/10/22 16:00 09/11/22 08:53 Ipratropium/Albuterol 0.5-3 Mg 3 Ml Ampul.Neb INHALATION 09/10/23 15:59 3 ml QID.RESP BRISEIDA Administration Aripiprazole 2 mg 09/11/22 09:00 09/11/22 08:39 Aripiprazole 2 Mg Tablet PO 09/11/23 08:59 2 mg DAILY BRISEIDA Administration Aspirin 81 mg 09/11/22 09:00 09/11/22 08:38 Aspirin 81 Mg Tablet. PO 09/11/23 08:59 81 mg DAILY BRISEIDA Administration Atorvastatin Calcium 20 mg 09/11/22 09:00 09/11/22 08:38 Atorvastatin 20 Mg Tablet PO 09/11/23 08:59 20 mg DAILY BRISEIDA Administration Chlordiazepoxide HCl 50 mg 09/11/22 09:00 09/11/22 08:38 Chlordiazepoxide 25 Mg Capsule PO 03/10/23 08:59 50 mg TID BRISEIDA Administration Dextrose 0 gm 09/10/22 13:38 Dextrose 50% In Water 25 Gm/50 Ml Syringe IV-PUSH 09/10/23 13:37 PRN PRN Hypoglycemia Dextrose 0 gm 09/10/22 15:22 Dextrose 50% In Water 25 Gm/50 Ml Syringe IV-PUSH 09/10/23 15:21 PRN PRN Hypoglycemia Docusate Sodium 100 mg 09/10/22 13:25 Docusate 100 Mg Capsule PO 09/10/23 13:24 BID PRN Constipation Enoxaparin Sodium 40 mg 09/11/22 10:00 09/11/22 09:49 Enoxaparin 40 Mg/0.4 Ml Syringe SUBCUT 09/11/23 09:59 40 mg DAILY@10 BRISEIDA Administration Fluoxetine HCl 40 mg 09/11/22 09:00 09/11/22 08:39 Fluoxetine 20 Mg Capsule PO 09/11/23 08:59 40 mg DAILY BRISEIDA Administration Folic Acid 1 mg 09/11/22 09:00 09/11/22 08:38 Folic Acid 1 Mg Tablet PO 09/11/23 08:59 1 mg DAILY BRISEIDA Administration Furosemide 40 mg 09/10/22 16:00 09/11/22 08:39 Furosemide 40 Mg/4 Ml Vial IV-PUSH 09/10/23 15:59 40 mg BID@0800,1600 BRISEIDA Administration Glipizide 2.5 mg 09/11/22 09:30 Glipizide 2.5 Mg Tab.Er.24 PO 09/11/23 09:29 DAILY BRISEIDA Glucose 0 gm 09/10/22 13:38 Dextrose 40% Gel 15 Gm Tube PO 09/10/23 13:37 PRN PRN Hypoglycemia Glucose 0 gm 09/10/22 15:22 Dextrose 40% Gel 15 Gm Tube PO 09/10/23 15:21 PRN PRN Hypoglycemia Guaifenesin 1,200 mg 09/10/22 21:00 09/11/22 08:39 Guaifenesin 600 Mg Tab.Er.12h PO 09/10/23 20:59 1,200 mg BID BRISEIDA Administration Azithromycin 500 mg in 250 mls @ 250 mls/hr 09/10/22 16:00 09/10/22 18:30 Zithromax IV 09/15/22 15:59 250 mls/hr Q24H BRISEIDA Administration Insulin Aspart 0 units 09/10/22 17:00 09/11/22 08:40 Insulin Aspart 300 Units/3 Ml Insuln.Pen SUBCUT 09/10/23 16:59 3 units TID.WM.HS BRISEIDA Administration Protocol Lorazepam 0 mg 09/10/22 15:56 09/11/22 04:04 Lorazepam 1 Mg Tablet PO 03/09/23 15:55 3 mg PROTOCOL PRN Administration Alcohol Withdrawal Protocol Lorazepam 0 mg 09/10/22 15:56 Lorazepam 2 Mg/Ml Vial IV-PUSH 03/09/23 15:55 PROTOCOL PRN Alcohol Withdrawal Protocol Losartan Potassium 50 mg 09/11/22 09:00 09/11/22 08:38 Losartan 50 Mg Tablet PO 09/11/23 08:59 50 mg DAILY BRISEIDA Administration Methylprednisolone Sodium Succinate 60 mg 09/10/22 15:20 09/11/22 09:49 Methylprednisolone Sod Succ/Pf 40 Mg/Ml (1ml) Vial IV-PUSH 09/10/23 15:19 60 mg Q12HR BRISEIDA Administration Morphine Sulfate 2 mg 09/10/22 13:25 Morphine Sulfate 2 Mg/Ml Vial IV-PUSH Q4H PRN Pain Scale 8 - 10 Multivitamins 1 tab 09/11/22 09:00 09/11/22 08:38 Multivitamin 1 Tab Tablet PO 09/11/23 08:59 1 tab DAILY BRISEIDA Administration Nicotine 1 each 09/10/22 17:30 09/10/22 17:43 Nicotine Patch 14 Mg/24hr 1 Each Patch.Td24 TRANSDERML 09/23/22 17:31 1 each Q24H BRISEIDA Administration Nitroglycerin 0.4 mg 09/10/22 15:38 Nitroglycerin 0.4 Mg Tab.Subl SUBLINGUAL 09/10/23 15:37 Q5MIN.X3 PRN Chest Pain Pantoprazole Sodium 40 mg 09/11/22 09:00 09/11/22 08:38 Pantoprazole 40 Mg Tablet.Dr PO 09/11/23 08:59 40 mg DAILY BRISEIDA Administration Potassium Chloride 20 meq 09/11/22 09:00 09/11/22 08:38 Potassium Chloride Er 20 Meq Tab.Er.Prt PO 09/11/23 08:59 20 meq DAILY BRISEIDA Administration Promethazine HCl 12.5 mg 09/10/22 15:31 Promethazine 25 Mg/Ml Vial IV-PUSH 09/10/23 15:30 Q6H PRN Nausea And Vomiting Sennosides 1 tab 09/10/22 13:25 Sennosides 8.6 Mg Tablet PO 09/10/23 13:24 BID PRN Constipation Sodium Chloride 0 ml 09/10/22 11:10 09/10/22 12:31 Sodium Chloride 0.9 % 10 Ml Syringe IV-PUSH 09/10/23 11:09 10 ml PRN PRN Administration Flush Sodium Chloride 10 ml 09/10/22 15:31 Sodium Chloride 0.9 % 10 Ml Vial.Pf INJECTION 09/10/23 15:30 PRN PRN Promethazine Dilution Spironolactone 25 mg 09/10/22 21:00 09/11/22 08:39 Spironolactone 25 Mg Tablet PO 09/10/23 20:59 25 mg BID BRISEIDA Administration Thiamine HCl 100 mg 09/10/22 21:00 09/11/22 08:38 Thiamine 100 Mg Tablet PO 09/10/23 20:59 100 mg BID BRISEIDA Administration A&P - Hospitalist Assessment/Plan (1) Acute respiratory failure with hypoxia: (2) Acute exacerbation of CHF (congestive heart failure): (3) COPD with acute exacerbation: Plan Acute hypoxic respiratory failure secondary to acute CHF and acute COPD exacerbations Acute decompensated systolic vs diastolic Congestive heart failure exacerbation -Patient responding well to treatment, feeling better today. Continue to wean off oxygen. -Pending echocardiogram -Fluid restriction 1.5 L daily -Low-sodium diet 2g daily -Continue IV Lasix 40 mg BID -Continue Aldactone -Beta-shiv when patient stabilized -Oxygen supplementation as needed -Monitor electrolytes while on diuretics Acute COPD exacerbation BRENDA on CPAP at home -Remained afebrile, no leukocytosis -Chest x-ray showing b/l infiltrates -Respiratory panel- negative -Continue Azithromycin x 5 days -Continue DuoNebs QID -Continue Solumedrol 60 q12h -Mucinex as directed -PEP as directed -Monitor for fever/leukocytosis -BiPAP at night and as needed. May use her home CPAP -Counseled on smoking cessation Chest pain, rule out ACS -Denies chest pain at this time, states it improves after breathing treatment, likely to be pulmonary related. -Serial troponin negative x 4. -Echo pending -Given full dose aspirin. Start Aspirin and continue statin -Patient at high risk for cardiovascular event. Has multiple risk factors, HTN, HLD, DM, Morbid obesity, active smoker -Lipid profile and HbA1c acceptable -Sublingual NG PRN -Monitor for chest pain Alcohol withdrawal syndrome Alcohol use disorder High risk for alcohol withdrawal with impending DTs -Patient drinks multiple mixed drinks of alcohol on daily basis -Continue Thiamine and folate supplements -initiate CIWA protocol -Increased Librium to 50 mg TID standing along with CIWA -Ativan PRN per CIWA -Address nausea, vomiting with IV antiemetics -GI ppx with Omeprazole -Monitor for withdrawal symptoms -At high risk for DTs -Will transfer to for close monitoring Chronic conditions DM: insulin sliding scale for now Continue home meds as appropriate Diet: Carb consistent, healthy heart, fluid restriction DVT ppx: SCDs, Lovenox GI ppx: Protonix Code status: Full Disposition: inpatient status Discussed with patient and her sister at bedside. All questions answered. In agreement with the above plan Patient is responding well to our medical management, however, she is at high risk for DTs. DTs usually appears at 48-72 hours from last drink. Her last drinkwas Tuesday 3 am. Patient has made her decision to quit alcohol and understands the risks and consequences of alcohol abuse. Discussed with her regarding hospital stay to monitor for DTs and will probably need ICU if this happens. Patient in agreement with the plan. Will transfer to [facility] for now. Marilyn Escobedo MD Internal Medicine Hospitalist Attending Physician Documented By: Marilyn Sun MD 09/11/22 11 04 Signed By: <Electronically signed by Marilyn Sun MD> 09/11/22 1139 [facility] Work Phone: 1(730) 857-486203-06-2023 Hospital Discharge instructions Patient Education 09/06/2022 12:23:58 Hypokalemia Hypokalemia Hypokalemia means that the amount of potassium in the blood is lower than normal. Potassium is a chemical (electrolyte) that helps regulate the amount of fluid in the body. It also stimulates muscle tightening (contraction) and helps nerves work properly. Normally, most of the body's potassium is inside cells, and only a very small amount is in the blood. Because the amount in the blood is so small, minor changes to potassium levels in the blood can be life-threatening. What are the causes? This condition may be caused by: Antibiotic medicine. Diarrhea or vomiting. Taking too much of a medicine that helps you have a bowel movement (laxative)can cause diarrhea and lead to hypokalemia. Chronic kidney disease (CKD). Medicines that help the body get rid of excess fluid (diuretics). Eating disorders, such as bulimia. Low magnesium levels in the body. Sweating a lot. What are the signs or symptoms? Symptoms of this condition include: Weakness. Constipation. Fatigue. Muscle cramps. Mental confusion. Skipped heartbeats or irregular heartbeat (palpitations). Tingling or numbness. How is this diagnosed? This condition is diagnosed with a blood test. How is this treated? This condition may be treated by: Taking potassium supplements by mouth. Adjusting the medicines that you take. Eating more foods that contain a lot of potassium. If your potassium level is very low, you may need to get potassium through an IV and be monitored in the hospital. Follow these instructions at home: Take [id number] and prescription medicines only as told by your health care provider. This includes vitamins and supplements. Eat a healthy diet. A healthy diet includes fresh fruits and vegetables, whole grains, healthy fats, and lean proteins. If instructed, eat more foods that contain a lot of potassium. This includes: ?Nuts, such as peanuts and pistachios. ?Seeds, such as sunflower seeds and pumpkin seeds. ?Peas, lentils, and reaves beans. ?Whole grain and bran cereals and breads. ?Fresh fruits and vegetables, such as apricots, avocado, bananas, cantaloupe, kiwi, oranges, tomatoes, asparagus, and potatoes. ?Jean juice. ?Tomato juice. ?Red meats. ?Yogurt. Keep all follow-up visits as told by your health care provider. This is important. Contact a health care provider if you: Have weakness that gets worse. Feel your heart pounding or racing. Vomit. Have diarrhea. Have diabetes (diabetes mellitus) and you have trouble keeping your blood sugar (glucose) in your target range. Get help right away if you: Have chest pain. Have shortness of breath. Have vomiting or diarrhea that lasts for more than 2 days. Faint. Summary Hypokalemia means that the amount of potassium in the blood is lower than normal. This condition is diagnosed with a blood test. Hypokalemia may be treated by taking potassium supplements, adjusting the medicines that you take, or eating more foods that are high in potassium. If your potassium level is very low, you may need to get potassium through an IV and be monitored in the hospital. This information is not intended to replace advice given to you by your health care provider. Make sure you discuss any questions you have with your health care provider. Document Released: 06/20/2006 Document Revised: 01/31/2019 Document Reviewed: 01/31/2019 [employer] Patient Education 2020 [employer]. Follow Up Care 08/23/2022 15:13:00 With:Yocasta SMITH, CREDIT COLLECTIONS CLERK-UPPER MARKER, Myron Hamilton Address: [address] [place] [phone] When: Unknown Comments:telephone result to maribel. See referrals [facility] [place] 02-09-2023 Hospital Discharge instructions Patient Education 08/12/2022 15:35:40 Diabetes Mellitus and Exercise Diabetes Mellitus and Exercise Exercising regularly is important for your overall health, especially when you have diabetes (diabetes mellitus). Exercising is not only about losing weight. It has many other health benefits, such as increasing muscle strength and bone density and reducing body fat and stress. This leads to improved fitness, flexibility, and endurance, all of which result in better overall health. Exercise has additional benefits for people with diabetes, including: Reducing appetite. Helping to lower and control blood glucose. Lowering blood pressure. Helping to control amounts of fatty substances (lipids) in the blood, such as cholesterol and triglycerides. Helping the body to respond better to insulin (improving insulin sensitivity). Reducing how much insulin the body needs. Decreasing the risk for heart disease by: ?Lowering cholesterol and triglyceride levels. ?Increasing the levels of good cholesterol. ?Lowering blood glucose levels. What is my activity plan? Your health care provider or certified rehabilitation counselor can help you make a plan for the type and frequency of exercise (activity plan) that works for you. Make sure that you: Do at least 150 minutes of moderate-intensity or vigorous-intensity exercise each week. This could be brisk walking, biking, or water aerobics. ?Do stretching and strength exercises, such as yoga or weightlifting, at least 2 times a week. ?Spread out your activity over at least 3 days of the week. Get some form of physical activity every day. ?Do not go more than 2 days in a row without some kind of physical activity. ?Avoid being inactive for more than 30 minutes at a time. Take frequent breaks to walk or stretch. Choose a type of exercise or activity that you enjoy, and set realistic goals. Start slowly, and gradually increase the intensity of your exercise over time. What do I need to know about managing my diabetes? Check your blood glucose before and after exercising. ?If your blood glucose is 240 mg/dL (13.3 mmol/L) or higher before you exercise, check your urine for ketones. If you have ketones in your urine, do not exercise until your blood glucose returns to normal. ?If your blood glucose is 100 mg/dL (5.6 mmol/L) or lower, eat a snack containing 15 20 grams of carbohydrate. Check your blood glucose 15 minutes after the snack to make sure that your level is above 100 mg/dL (5.6 mmol/L) before you start your exercise. Know the symptoms of low blood glucose (hypoglycemia) and how to treat it. Your risk for hypoglycemia increases during and after exercise. Common symptoms of hypoglycemia can include: ?Hunger. ?Anxiety. ?Sweating and feeling clammy. ?Confusion. ?Dizziness or feeling light-headed. ?Increased heart rate or palpitations. ?Blurry vision. ?Tingling or numbness around the mouth, lips, or tongue. ?Tremors or shakes. ?Irritability. Keep a rapid-acting carbohydrate snack available before, during, and after exercise to help preventor treat hypoglycemia. Avoid injecting insulin into areas of the body that are going to be exercised. For example, avoid injecting insulin into: ?The arms, when playing tennis. ?The legs, when jogging. Keep records of your exercise habits. Doing this can help you and your health care provider adjust your diabetes management plan as needed. Write down: ?Food that you eat before and after you exercise. ?Blood glucose levels before and after you exercise. ?The type and amount of exercise you have done. ?When your insulin is expected to peak, if you use insulin. Avoid exercising at times when your insulin is peaking. When you start a new exercise or activity, work with your health care provider to make sure the activity is safe for you, and to adjust your insulin, medicines, or food intake as needed. Drink plenty of water while you exercise to prevent dehydration or heat stroke. Drink enough fluid to keep your urine clear or pale yellow. Summary Exercising regularly is important for your overall health, especially when you have diabetes (diabetes mellitus). Exercising has many health benefits, such as increasing muscle strength and bone density and reducing body fat and stress. Your health care provider or certified rehabilitation counselor can help you make a plan for the type and frequency of exercise (activity plan) that works for you. When you start a new exercise or activity, work with your health care provider to make sure the activity is safe for you, and to adjust your insulin, medicines, or food intake as needed. This information is not intended to replace advice given to you by your health care provider. Make sure you discuss any questions you have with your health care provider. Document Released: 09/09/2004 Document Revised: 01/12/2018 Document Reviewed: 11/29/2016 [employer] Patient Education 2020 [employer]. Follow Up Care 08/12/2022 10:06:58 With:Yocasta SMITH, CREDIT COLLECTIONS CLERK-IRVING, Myron Hamilton Address: [address] [place] [phone] When: Unknown Comments:Echo order for [place]. Telephone result to patient [facility] [place] 06-29-2022 Hospital Discharge instructions Patient Education 12/30/2021 13:01:22 Heart Disease Prevention Heart Disease Prevention Heart disease is the leading cause of in the world. Coronary artery disease is the most common cause of heart disease. This condition results when cholesterol and other substances (plaque) build up inside the alvarado of the blood vessels that supply your heart muscle (arteries). This buildup inarteries is called atherosclerosis. You can take actions to lower your risk of heart disease. How can heart disease affect me? Heart disease can cause many unpleasant symptoms and complications, such as: Chest pain (angina). Reduced or blocked blood flow to your heart. This can cause: ?Irregular heartbeats (arrhythmias). ?Heart attack. ?Heart failure. What can increase my risk? The following factors may make you more likely to develop this condition: High blood pressure (hypertension). High cholesterol. Smoking. A diet high in saturated fats or trans fats. Lack of physical activity. Obesity. Drinking too much alcohol. Diabetes. Having a family history of heart disease. What actions can I take to prevent heart disease? Nutrition Eat a heart-healthy eating plan as told by your health care provider. Examples include the DASH (Dietary Approaches to Stop Hypertension) eating plan or the Mediterranean diet. Generally, it is recommended that you: ?Eat less salt (sodium). Ask your health care provider how much sodium is safe for you. Most peopleshould have less than 2,300 mg each day. ?Limit unhealthy fats, such as saturated and trans fats, in your diet. You can do this by eating low-fat dairy products, eating less red meat, and avoiding processed foods. ?Eat healthy fats (omega-3 fatty acids). These are found in fish, such as mackerel or salmon. ?Eat more fruits and vegetables. You should try to fill one-half of your plate with fruits and vegetables at each meal. ?Eat more whole grains. ?Avoid foods and drinks that have added sugars. Lifestyle Get regular exercise. This is one of the most important things you can do for your health. Generally, it is recommended that you: ?Exercise for at least 30 minutes on most days of the week (150 minutes each week). The exercise should increase your heart rate and make you sweat (aerobic exercise). ?Add strength exercises on at least 2 days each week. Do not use any products that contain nicotine or tobacco, such as cigarettes and e-cigarettes. These can damage your heart and blood vessels. If you need help quitting, ask your health care provider. Alcohol use Do not drink alcohol if: ?Your health care provider tells you not to drink. ?You are , may be , or are planning to become . If you drink alcohol, limit how much you have: ?0 1 drink a day for women. ?0 2 drinks a day for men. Be aware of how much alcohol is in your drink. In the [place] one drink equals one typical bottle of beer (12 oz), one-half glass of wine (5 oz), or one shot of hard liquor (1 oz). Medicines Take [id number] and prescription medicines only as told by your health care provider. Ask your health care provider whether you should take an aspirin every day. Taking aspirin may helpreduce your risk of heart disease and stroke. Depending on your risk factors, your health care provider may prescribe medicines to lower your risk of heart disease or to control related conditions. You may take medicine to: ?Lower cholesterol. ?Control blood pressure. ?Control diabetes. General information Keep your blood pressure under control, as recommended by your health care provider. For most healthy people, the upper number of your blood pressure (systolic) should be no higher than 120, and the lower number (diastolic) no higher than 80. Treatment may be needed if your blood pressure is higherthan 130/80. Have your blood pressure checked at least every two years. Your health care provider may check yourblood pressure more often if you have high blood pressure. After age 20, have your cholesterol checked every 4 6 years. If you have risk factors for heart disease, you may need to have it checked more frequently. Treatment may be needed if your cholesterol is high. Have your body mass index (BMI) checked every year. Your health care provider can calculate your BMI from your height and weight. Work with your health care provider to lose weight, if needed, or to maintain a healthy weight. Where to find more information: Centers for Disease Control and Prevention: www.cdc.gov/heartdisease [place] [employer]: www.heart.org ?Take a free online heart disease risk quiz to better understand your personal risk factors. Summary Heart disease is the leading cause of in the world. Heart disease can cause chest pain, abnormal heart rhythms, heart attack, and heart failure. High blood pressure, high cholesterol, and smoking are the main risk factors for heart disease, although other factors also contribute. You can take actions to lower your chances of developing heart disease. Work with your health care provider to reduce your risk by following a heart-healthy diet, being physically active, and controlling your weight, blood pressure, and cholesterol level. This information is not intended to replace advice given to you by your health care provider. Make sure you discuss any questions you have with your health care provider. Document Released: 02/01/2005 Document Revised: 07/05/2018 Document Reviewed: 07/05/2018 [employer] Patient Education 2020 [employer] Follow Up Care 12/24/2021 08:31:22 With:Parish PATE Address: [address] [place] [phone] When:Within 6 Month(s) [facility] [place] 01-10-2022 History of Present illness Narrative* Case Parish RD, LD - 07/13/2021 10:00 AM EST MNT provided for Diabetes Food and nutrition-related knowledge deficit related to Lack of previous MNT/currently undergoing MNT as evidenced by New diagnosis of Diabetes Client data Ht: 66 Wt: 348.6# BMI: 56.3 (obese III) Weight changes: 340.6# in office CBW: 154.8 kg BMR: 2209 calories Est. total calorie needs: ~[phone] Client overall goal for weight is for weight losses towards a healthier BMI. Current eating patternincludes 2 meals a day usually, not quite adopting the recommended 3 meal eating pattern recommended just yet. Has been cutting out breads and focusing on more protein items. Specifically, using boiled eggs often, or tuna (as entire meal). At other times, will consume 3 pieces of pizza, or consume foods from community, including vincentian food or fast foods. Has not been reading food labels, nor measuring foods. Does not currently look up nutrition information for restaurant items. Her use of whole grains, whole fruits and vegetables appear much lower than recommended quantities. There is an excess of portions and alcohol (whiskey) per recall. Activity includes 10 minutes a day on treadmill. Client presents for MNT today with self. Client was educated on carbohydrate counting with the following goals at meals and snacks: Breakfast: 45 grams Lunch: 45 grams Supper: 45 grams Bedtime Snack: 15 grams Client received information on limiting fat in diet to lessen heart disease risk, with goals of: Total Fat: 50 grams Saturated Fat: 10 grams Trans Fat: 0 grams daily Discussed and provided literature on: Carbohydrate counting, utilizing materials: Choose Your Foodsbook for meal planning, Food Label, MyPlate and individual carbohydrate counts (as noted above). Provided sample menu to illustrate how to incorporate variety 3 meals a day and discussed ways that cli ent could be successful. Reinforced importance of measuring portions and reading food labels for Total Carbohydrate and Serving Sizes. Walked through meal pattern with client, incorporating foods that she likes. Discussed moderation for alcohol and educated on caloric impact (counterproductive to her desired weight losses). Did reinforce the good work she is doing with water consumption and initiating exercise. Client goals: Measure food portions Read food labels for Total Carbohydrate and Serving Size Establish 3 meals daily and keep consistent meal timing Avoid excess fat, saturated fat and trans fats Continue to build up on exercise program Use MyPlate and sample menu as templates for nutrition balance Look up restaurant and fast food information via computer or smartphone Consider getting a food scale to weigh out portions of items like baked potato, home baked goods Limit alcohol (moderation is one drink per day) Continue to utilize water as primary beverage Expected compliance: Fair to Good. Client appeared eager to learn and was attentive throughout our meeting. She desires weight losses and was encouraged that she was 8# down from last value. Client appears to be in a contemplative to action phase of change. Recommend follow up as needed. RD name and phone number provided. Thank you for the referral. Education session duration: 60 minutes; ([phone]). Reminder to ordering Physician/Provider: Diabetes and CKD (non-dialysis) patients may have 2 hours of MNT education in subsequent years. Hours can be spread over any number of visits. documented in this [employer] Phone: [phone] 590-229201-06-2022 History of Present illness Narrative* Sarah Salmon RN - 07/09/2021 9:00 AM EST Diabetes Self-Management Education Record Class3 Topics: 1 The natural course of diabetes 2 Recognizing the fact that it may become more difficult to keep your blood glucose within your target range 3 The potential long-term complications of diabetes 4 How to delay or reduce the risk of long-term complications by keeping your blood glucose on target 5 The importance of checking for long-term complications and knowing your ABCs 6 How oral diabetes medications work 7 How other diabetes medications work 8 Defining the different types of insulin Progress Note: Carmen here for diabetes education class 3. Carmen was recently diagnosed with type 2 DM. Her A1C was 7%. She continues taking metformin 500 mg twice daily with no missed doses this pastweek. She has been monitoring her blood sugar 3 times a day but forgot her blood sugar log. She does not give a range but recalls that her morning sugars are often in the 120's. Glucose this morning at home was 105 then 153 in this office at 0900. She has not eaten yet this morning but has taken her medication. For supper at 4:00 PM yesterday she had chicken strips and salad. She has not eaten since because she thought it was best not to eat at night. Carmen has not been reading labels or counting carbohydrates but states she has been watching portions, cut out bread, and has not been eating anything after supper this past week. Reviewed ADA's recommendation for healthy eating and carbohydrate counting. Reviewed and strongly encouraged eating 3 meals a day at about the same time everyday and adding a small night time snack. She continues to walk on her treadmill for 10 minutes some days but has been finding it more difficult d/t the continued sleepiness and lack of motivation she has been experiencing. Discussed all class 3 topics including a diabetes care schedule. Encouraged to schedule eye and dental exam appts soon. Diabetes education 3 month f/up scheduled for 09-08-21 at 9:00 AM. Will follow and support as needed. Encouraged to call with questions or concerns. Wt Readings from Last 3 Encounters: 07/09/21 (!) 341 lb 12.8 oz (155 kg) 07/02/21 (!) 348 lb 9.6 oz (158.1 kg) 06/17/21 (!) 350 lb 3.2 oz (158.8 kg) Participant Name: Carmen Bledsoe Referring Provider: DARLEEN Bernardo NP [place] to learning: Considerations: []Language []Emotional []Health Literacy []Cognitive []Memory changes []Financial []Cultural []Zoroastrianism []Vision []Hearing []Speech []Lack of desire []Literacy []Psycho- social [x]None [x] Covid-19 group restrictions If considerations are noted, accommodations made: Individual Identified barriers to learning/self management: None The following information was discussed: [x] Diabetes disease process and treatment options [x] Healthy nutrition, carbohydrate counting, meal planning [x] Monitoring blood glucose and other parameters; interpreting and using results [x] Acute complications--prevention, detection and treatment [x] Medication management and safety [x] Incorporating physical activity into lifestyle [x] Exercise for Health, Reducing Risks for Heart Disease, Diabetes and Heart Health [x] Preventing, through risk reduction behaviors, detecting, and treating chronic complications [x] Sick Day management [x] Developing personalized strategies to address psychosocial issues and concerns [x] Developing personalized strategies to promote health and behavior change through goalsetting, behavior change strategies aimed at risk reduction [x] Special situations--disaster planning, travel, social activities [x] Foot, skin, and dental care Session Assessment & Evaluation Ratings: 1=Needs Instruction 2=Needs Review 3=Comprehends Ramirez Points 4=Demonstrates Understanding/Competency NC=Not Covered N/A=Not Applicable Initial Assess Date: 06-11-21 2nd Visit Date: 06/17/21 3rd Visit Date: 07/02/21 4th Visit Date: 07-09-21 Comments S.O.C=Stage of Change/Readiness to change: Pre=Pre-contemplation stage--not thinking about changing C=Contemplation stage ambivalent about changing P=Preparation stage--prepared to made a specific change A=Action stage--committed to modify behaviors M=Maintenance and relapse prevention--incorporating new behavior Participant Stated Goal Healthy eating- Eat 3 meals/day, read labels, count CHO Participant Stated Goal S.O.C [] PRE [] C [x] P [] A [] M S.O.C [] PRE [] C [] P [] A [] M S.O.C [] PRE [] C [] P [x] A [] M S.O.C [] PRE [] C [] P [] A [] M S.O.C [] PRE [] C [] P [x] A [] M S.O.C [] PRE [] C [] P [] A [] M S.O.C [] PRE [] C [] P [] A [x] M S.O.C [] PRE [] C [] P [] A [] M Current main goal attainment frequency: [] Never [x] Some [x] Half 07/09/21 [] Most [] All Participant confidence to master goal this visit: [] Excellent [x] Good [] Fair [] Poor Current main goal attainment frequency: [] Never [] Some [] Half [] Most [] All Participant confidence to master goal this visit: [] Excellent [] Good [] Fair [] Poor Session Topics & Learning Objectives: Comments: Diabetes disease process & Treatment process: Define diabetes & prediabetes; identify own type of diabetes; role of the pancreas; signs/symptoms; diagnostic criteria; prevention and treatmentoptions; contributing factors. Rating [x] 1 [] 2 [] 3 [] 4 [] NC [] N/A Rating [] 1 [] 2 [x] 3 [] 4 [] NC [] N/A Rating [] 1 [x] 2 [] 3 [] 4 [] NC [] N/A Rating [] 1 [] 2 [] 3 [] 4 [] NC [] N/A Incorporating nutritional management into lifestyle: Describe effect of type, amount & timing of food on blood glucose; Describe basic meal planning techniques & current nutrition guidelines;Correctly read food labels & demonstrate CHO counting & portion control with personalized meal plan. Rating [x] 1 [] 2 [] 3 [] 4 [] NC [] N/A Rating [] 1 [] 2 [x] 3 [] 4 [] NC [] N/A Rating [] 1 [x] 2 [] 3 [] 4 [] NC [] N/A Rating [] 1 [x] 2 [] 3 [] 4 [] NC [] N/A 07-02-21 Has not started working on diet because of Abigail. Given a one week food diary and asked to record everything she eats and to bring to next visit. Encouraged set times for meals. She agrees to eat within an hour of getting up, and to eat at regular times throughout the day. Carmen feels she will be able to adhere to this schedule: 5:00 AM check glucose and eat a slice of toast and a boiled egg 10:00 AM have some cottage cheese and peaches 2:00 PM check glucose and have lunch 6:00 PM check glucose and have supper 8:00 PM small bedtime snack with her choice of carb and protein Incorporating physical activity into lifestyle: State effect of exercise on blood glucose levels. Identifies personal exercise plan and contraindications. Discussed safety tips while exercising. Rating [x] 1 [] 2 [] 3 [] 4 [] NC [] N/A Rating [] 1 [] 2 [x] 3 [] 4 [] NC [] N/A Rating [] 1 [x] 2 [] 3 [] 4 [] NC [] N/A Rating [] 1 [] 2 [] 3 [] 4 [] NC [] N/A Using medications safely: State effect of diabetes medicines on diabetes; Name diabetes medication taking, action, timing & side effects. Rating [x] 1 [] 2 [] 3 [] 4 [] NC [] N/A Rating [] 1 [] 2 [] 3 [] 4 [] NC [] N/A Rating [] 1 [] 2 [] 3 [] 4 [] NC [] N/A Rating [] 1 [] 2 [x] 3 [] 4 [] NC [] N/A Described action of metformin and when to take. Insulin/injectable- Appropriate injection site; proper storage; proper technique; safe needle disposal. Rating [] 1 [] 2 [] 3 [] 4 [] NC [] N/A Rating [] 1 [] 2 [] 3 [] 4 [] NC [] N/A Rating [] 1 [] 2 [] 3 [] 4 [] NC [] N/A Rating [] 1 [] 2 [] 3 [] 4 [] NC [] N/A Monitoring blood glucose, interpreting and using results: Identify recommended blood glucose targets, personal targets, A1C target, importance of logging glucose,appropriate techniques and problem solving.Safe lancet disposal. Rating [x] 1 [] 2 [] 3 [] 4 [] NC [] N/A Rating [] 1 [] 2 [x] 3 [] 4 [] NC [] N/A Rating [] 1 [x] 2 [] 3 [] 4 [] NC [] N/A Rating [] 1 [] 2 [] 3 [] 4 [] NC [] N/A Prevention, detection & treatment of acute complications: List symptoms of hyper- and hypoglycemia; Describe how to treat low blood sugar & actions for lowering high blood glucose levels. Prevention and treatment strategies. Rating [x] 1 [] 2 [] 3 [] 4 [] NC [] N/A Rating [] 1 [] 2 [x] 3 [] 4 [] NC [] N/A Rating [] 1 [x] 2 [] 3 [] 4 [] NC [] N/A Rating [] 1 [] 2 [] 3 [] 4 [] NC [] N/A Describe sick day guidelines and indications for physician notification. Rating [] 1 [] 2 [] 3 [] 4 [] NC [] N/A Rating [] 1 [] 2 [] 3 [] 4 [] NC [] N/A Rating [] 1 [] 2 [x] 3 [] 4 [] NC [] N/A Rating [] 1 [] 2 [] 3 [] 4 [] NC [] N/A Prevention, detection & treatment of chronic complications: Define the natural course of diabetes & describe the relationship of blood glucose levels to assistant terminal manager complications of diabetes.Identify preventative measures and standard of care. Rating [] 1 [] 2 [] 3 [] 4 [] NC [] N/A Rating [] 1 [] 2 [] 3 [] 4 [] NC [] N/A Rating [] 1 [] 2 [] 3 [] 4 [] NC [] N/A Rating [] 1 [] 2 [x] 3 [] 4 [] NC [] N/A 07-02-21 Talks about the need to stop smoking. States she has the patches but has not started usingthem yet. Is still in the thinking about it stage because she enjoys it. Encouraged to start bywriting down her goals for the new year and why she wants to make the necessary changes. Developing strategies to address psychosocial issues: Describe feelings about living with diabetes;Identify support needed & support network. Describe how stress, depression, and anxiety affect blood glucose. Identify coping strategies. Rating [x] 1 [] 2 [] 3 [] 4 [] NC [] N/A Rating [] 1 [] 2 [] 3 [] 4 [] NC [] N/A Rating [] 1 [] 2 [] 3 [] 4 [] NC [] N/A Rating [] 1 [] 2 [] 3 [] 4 [] NC [] N/A Developing strategies to promote health/change behavior: Define the ABCs of diabetes; Identify appropriate screenings, schedule & personal plan for screenings. Identify 7 self-care behaviors. Benefits, challenges and strategies for behavioral change. Rating [x] 1 [] 2 [] 3 [] 4 [] NC [] N/A Rating [] 1 [] 2 [] 3 [] 4 [] NC [] N/A Rating [] 1 [] 2 [x] 3 [] 4 [] NC [] N/A Rating [] 1 [] 2 [x] 3 [] 4 [] NC [] N/A Time spent with patient: 65 Minutes Next Appointment: 09-08-21 at 0900 3 month follow-up; 07-13-21 at 1000 with dietitian Instruction Method: [x]Lecture/Discussion []Power Point Presentation [x]Handouts []Return Demonstration Education Materials/Equipment Provided: [x]Self-Management Initial assessment ADA Where do I Begin? Living with Type 2 diabetes booklet; Diet meal planning basics, handout on diabetes education classes, hyper/hypoglycemia signs/symptoms and treatment handout; Diabetes zones; Support plan resource list. [x]Self-Management Class 1 Exercise handouts, Diabetes: Your Take Control Guide booklet. [x] Self-Management Class 2 - Traveling with Diabetes , Dining Out With Diabetes , Coping with Diabetes , Diabetes Disaster Planning , Know Your Numbers/Diabetes Care Checklist , High Blood Sugar, Low Blood Sugar . [x] Self-Management Class 3 Risk Factors for CVD , foot care tips sheet and How to pick the right shoe , Medications Used To Treat Diabetes , How To Care For Your Teeth and Gums , Vaccinations For Adults with Diabetes , Type 2 diabetes and the role of GLP-1 . []Self-Management 3 month follow-up []Glucose Meter []Insulin Kit []Other Handouts/Booklets given: [x] How To Thrive: A Guide for Your Journey with Diabetes [x] Daily Diabetic Meal Planning Guide [] Nutrition in the Fast [place] [x] Resources for People With Diabetes [] Other Diabetes Self Management Support Plan: To assist and support your continued progress in managing your diabetes following education- ( x ) Gym or exercise program of your choice. (Suggestions: [employer], Circuit training, any exercise facility and your local Physical Therapy or Cardiac Rehabilitation exercise Program) ( ) Library ( x ) ADA website: Http://www.diabetes.org ( ) Http: //www.[employer]/-russ/faq.htm ( ) Diabetes Forecast [place] you may get this information on the ADA web site. ( ) Diabetes Interview - [place] ( ) Diabetes Self Management (bi-monthly magazine) ( x ) Support group: [place] third Tuesday of the month at 9 am ( ) Health Journeys Image Paths (relaxation tapes for people with Diabetes) ( ) Your suggestions: Sarah Salmon RN [facility] Diabetes clinic educator 07/09/2021 10:17 AM [facility] Phone: 1(216) 318-527412-30-2021 History of Present illness Narrative* Sarah Salmon RN - 07/02/2021 10:00 AM EST Diabetes Self-Management Education Record Class 2 Topics: 1 What blood glucose and insulin are 2 Blood glucose targets and how you feel when your blood glucose is in and out of your target ranges 3 Monitoring and knowing your A1C 4 What can make blood glucose go up and down and preventing high and low blood glucose 5 Using your monitoring results to manage your diabetes 6 Sick days with diabetes 7 Dining out and special events 8 Diabetes disaster planning Progress Note: Carmen here for diabetes education class 2. Carmen was recently diagnosed with type 2 DM with an A1C of 7%. She is taking metformin 500 mg twice daily with one missed dose. She has been monitoring her blood sugar 3 times a day with her morning blood sugars ranging 112 - 165. Reviewed ramirez times to monitor. Reviewed hyper/hypoglycemia. Blood sugar was 178 in this office at 0940. She has not eaten yet this morning. For supper at 6:30 PM last night she had fried ham and macaroni and cheese. Carmen has not been reading labels or counting carbohydrates. States I haven't been trying because of [place]. She continues to eats 2 main meals a day, never eating breakfast. Reviewed he althy eating and carbohydrate counting, stressing the importance of eating 3 meals a day at about the same time everyday and adding a small night time snack. She continues to walk on her treadmill for 10 minutes some-most days but has not started working onincreasing time. Carmen gets up at around 4 AM daily and gets very sleepy during the day and takes a nap sitting up in [her] chair. States she feels more sleepy and unmotivated lately and wonders if it is related to any new medications she is taking. Discussed all class 2 topics. Diabetes education class 3 scheduled for 07-09-21 at 9:00 AM. Will follow and support as needed. Encouraged to call with questions or concerns. Participant Name: Carmen Bledsoe Referring Provider: DARLEEN Bernardo NP [place] to learning: Considerations: []Language []Emotional []Health Literacy []Cognitive []Memory changes []Financial []Cultural []Zoroastrianism []Vision []Hearing []Speech []Lack of desire []Literacy []Psycho- social [x]None [x] Covid-19 group restrictions If considerations are noted, accommodations made: Individual Identified barriers to learning/self management: None The following information was discussed: [x] Diabetes disease process and treatment options [x] Healthy nutrition, carbohydrate counting, meal planning [x] Monitoring blood glucose and other parameters; interpreting and using results [x] Acute complications--prevention, detection and treatment [] Medication management and safety [x] Incorporating physical activity into lifestyle [x] Exercise for Health, Reducing Risks for Heart Disease, Diabetes and Heart Health [] Preventing, through risk reduction behaviors, detecting, and treating chronic complications [x] Sick Day management [x] Developing personalized strategies to address psychosocial issues and concerns [x] Developing personalized strategies to promote health and behavior change through goalsetting, behavior change strategies aimed at risk reduction [x] Special situations--disaster planning, travel, social activities [] Foot, skin, and dental care Session Assessment & Evaluation Ratings: 1=Needs Instruction 2=Needs Review 3=Comprehends Ramirez Points 4=Demonstrates Understanding/Competency NC=Not Covered N/A=Not Applicable Initial Assess Date: 06-11-21 2nd Visit Date: 06/17/21 3rd Visit Date: 07/02/21 4th Visit Date: Comments S.O.C=Stage of Change/Readiness to change: Pre=Pre-contemplation stage--not thinking about changing C=Contemplation stage ambivalent about changing P=Preparation stage--prepared to made a specific change A=Action stage--committed to modify behaviors M=Maintenance and relapse prevention--incorporating new behavior Participant Stated Goal Healthy eating- Eat 3 meals/day, read labels, count CHO Participant Stated Goal S.O.C [] PRE [] C [x] P [] A [] M S.O.C [] PRE [] C [] P [] A [] M S.O.C [] PRE [] C [] P [x] A [] M S.O.C [] PRE [] C [] P [] A [] M S.O.C [] PRE [] C [] P [x] A [] M S.O.C [] PRE [] C [] P [] A [] M S.O.C [] PRE [] C [] P [] A [] M S.O.C [] PRE [] C [] P [] A [] M Current main goal attainment frequency: [] Never [x] Some [] Half [] Most [] All Participant confidence to master goal this visit: [] Excellent [x] Good [] Fair [] Poor Current main goal attainment frequency: [] Never [] Some [] Half [] Most [] All Participant confidence to master goal this visit: [] Excellent [] Good [] Fair [] Poor Session Topics & Learning Objectives: Comments: Diabetes disease process & Treatment process: Define diabetes & prediabetes; identify own type of diabetes; role of the pancreas; signs/symptoms; diagnostic criteria; prevention and treatmentoptions; contributing factors. Rating [x] 1 [] 2 [] 3 [] 4 [] NC [] N/A Rating [] 1 [] 2 [x] 3 [] 4 [] NC [] N/A Rating [] 1 [x] 2 [] 3 [] 4 [] NC [] N/A Rating [] 1 [] 2 [] 3 [] 4 [] NC [] N/A Incorporating nutritional management into lifestyle: Describe effect of type, amount & timing of food on blood glucose; Describe basic meal planning techniques & current nutrition guidelines;Correctly read food labels & demonstrate CHO counting & portion control with personalized meal plan. Rating [x] 1 [] 2 [] 3 [] 4 [] NC [] N/A Rating [] 1 [] 2 [x] 3 [] 4 [] NC [] N/A Rating [] 1 [x] 2 [] 3 [] 4 [] NC [] N/A Rating [] 1 [] 2 [] 3 [] 4 [] NC [] N/A 07-02-21 Has not started working on diet because of [place]. Given a one week food diary and asked to record everything she eats and to bring to next visit. Encouraged set times for meals. She agrees to eat within an hour of getting up, and to eat at regular times throughout the day. Carmen feels she will be able to adhere to this schedule: 5:00 AM check glucose and eat a slice of toast and a boiled egg 10:00 AM have some cottage cheese and peaches 2:00 PM check glucose and have lunch 6:00 PM check glucose and have supper 8:00 PM small bedtime snack with her choice of carb and protein Incorporating physical activity into lifestyle: State effect of exercise on blood glucose levels. Identifies personal exercise plan and contraindications. Discussed safety tips while exercising. Rating [x] 1 [] 2 [] 3 [] 4 [] NC [] N/A Rating [] 1 [] 2 [x] 3 [] 4 [] NC [] N/A Rating [] 1 [x] 2 [] 3 [] 4 [] NC [] N/A Rating [] 1 [] 2 [] 3 [] 4 [] NC [] N/A Using medications safely: State effect of diabetes medicines on diabetes; Name diabetes medication taking, action, timing & side effects. Rating [x] 1 [] 2 [] 3 [] 4 [] NC [] N/A Rating [] 1 [] 2 [] 3 [] 4 [] NC [] N/A Rating [] 1 [] 2 [] 3 [] 4 [] NC [] N/A Rating [] 1 [] 2 [] 3 [] 4 [] NC [] N/A Described action of metformin and when to take. Insulin/injectable- Appropriate injection site; proper storage; proper technique; safe needle disposal. Rating [] 1 [] 2 [] 3 [] 4 [] NC [] N/A Rating [] 1 [] 2 [] 3 [] 4 [] NC [] N/A Rating [] 1 [] 2 [] 3 [] 4 [] NC [] N/A Rating [] 1 [] 2 [] 3 [] 4 [] NC [] N/A Monitoring blood glucose, interpreting and using results: Identify recommended blood glucose targets, personal targets, A1C target, importance of logging glucose,appropriate techniques and problem solving.Safe lancet disposal. Rating [x] 1 [] 2 [] 3 [] 4 [] NC [] N/A Rating [] 1 [] 2 [x] 3 [] 4 [] NC [] N/A Rating [] 1 [x] 2 [] 3 [] 4 [] NC [] N/A Rating [] 1 [] 2 [] 3 [] 4 [] NC [] N/A Prevention, detection & treatment of acute complications: List symptoms of hyper- and hypoglycemia; Describe how to treat low blood sugar & actions for lowering high blood glucose levels. Prevention and treatment strategies. Rating [x] 1 [] 2 [] 3 [] 4 [] NC [] N/A Rating [] 1 [] 2 [x] 3 [] 4 [] NC [] N/A Rating [] 1 [x] 2 [] 3 [] 4 [] NC [] N/A Rating [] 1 [] 2 [] 3 [] 4 [] NC [] N/A Describe sick day guidelines and indications for physician notification. Rating [] 1 [] 2 [] 3 [] 4 [] NC [] N/A Rating [] 1 [] 2 [] 3 [] 4 [] NC [] N/A Rating [] 1 [] 2 [x] 3 [] 4 [] NC [] N/A Rating [] 1 [] 2 [] 3 [] 4 [] NC [] N/A Prevention, detection & treatment of chronic complications: Define the natural course of diabetes & describe the relationship of blood glucose levels to assistant terminal manager complications of diabetes.Identify preventative measures and standard of care. Rating [] 1 [] 2 [] 3 [] 4 [] NC [] N/A Rating [] 1 [] 2 [] 3 [] 4 [] NC [] N/A Rating [] 1 [] 2 [] 3 [] 4 [] NC [] N/A Rating [] 1 [] 2 [] 3 [] 4 [] NC [] N/A 07-02-21 Talks about the need to stop smoking. States she has the patches but has not started usingthem yet. Is still in the thinking about it stage because she enjoys it. Encouraged to start bywriting down her goals for the new year and why she wants to make the necessary changes. Developing strategies to address psychosocial issues: Describe feelings about living with diabetes;Identify support needed & support network. Describe how stress, depression, and anxiety affect blood glucose. Identify coping strategies. Rating [x] 1 [] 2 [] 3 [] 4 [] NC [] N/A Rating [] 1 [] 2 [] 3 [] 4 [] NC [] N/A Rating [] 1 [] 2 [] 3 [] 4 [] NC [] N/A Rating [] 1 [] 2 [] 3 [] 4 [] NC [] N/A Developing strategies to promote health/change behavior: Define the ABCs of diabetes; Identify appropriate screenings, schedule & personal plan for screenings. Identify 7 self-care behaviors. Benefits, challenges and strategies for behavioral change. Rating [x] 1 [] 2 [] 3 [] 4 [] NC [] N/A Rating [] 1 [] 2 [] 3 [] 4 [] NC [] N/A Rating [] 1 [] 2 [x] 3 [] 4 [] NC [] N/A Rating [] 1 [] 2 [] 3 [] 4 [] NC [] N/A Time spent with patient: 65 Minutes Next Appointment: 07-06-21 at 0900 with dietitian; 07-09-21 at 0900 Instruction Method: [x]Lecture/Discussion []Power Point Presentation [x]Handouts []Return Demonstration Education Materials/Equipment Provided: [x]Self-Management Initial assessment ADA Where do I Begin? Living with Type 2 diabetes booklet; Diet meal planning basics, handout on diabetes education classes, hyper/hypoglycemia signs/symptoms and treatment handout; Diabetes zones; Support plan resource list. [x]Self-Management Class 1 Exercise handouts, Diabetes: Your Take Control Guide booklet. [x] Self-Management Class 2 - Traveling with Diabetes , Dining Out With Diabetes , Coping with Diabetes , Diabetes Disaster Planning , Know Your Numbers/Diabetes Care Checklist , High Blood Sugar, Low Blood Sugar . [] Self-Management Class 3 Risk Factors for CVD , foot care tips sheet and How to pick the right shoe , Medications Used To Treat Diabetes , How To Care For Your Teeth and Gums , Vaccinations ForAdults with Diabetes , Type 2 diabetes and the role of GLP-1 . Healthy Interactions Map Continuing Your Journey . []Self-Management 3 month follow-up []Glucose Meter []Insulin Kit []Other Handouts/Booklets given: [x] How To Thrive: A Guide for Your Journey with Diabetes [x] Daily Diabetic Meal Planning Guide [] Nutrition in the Fast [place] [x] Resources for People With Diabetes [] Other Diabetes Self Management Support Plan: To assist and support your continued progress in managing your diabetes following education- ( x ) Gym or exercise program of your choice. (Suggestions: [employer], Circuit training, any exercise facility and your local Physical Therapy or Cardiac Rehabilitation exercise Program) ( ) Library ( x ) ADA website: Http://www.diabetes.org ( ) Http: //www.[employer]/-russ/faq.htm ( ) Diabetes Forecast [place] you may get this information on the ADA web site. ( ) Diabetes Interview - [place] ( ) Diabetes Self Management (bi-monthly magazine) ( x ) Support group: [place] third Tuesday of the month at 9 am ( ) Health Journeys Image Paths (relaxation tapes for people with Diabetes) ( ) Your suggestions: Sarah Salmon RN [facility] Diabetes clinic educator 07/02/2021 10:41 AM documented in this [facility] Work Phone: evaluation + Plan note Future Appointments Appointment Date:07/09/2022 11:00:00 AM Scheduled Provider:Parish PATE Location:[facility] Appointment Type:[facility] Evaluation + Plan [facility] Evaluation + Plan note Future Appointments Appointment Date:09/24/2022 02:40:00 PM Scheduled Provider:Lupis SCHWARTZ MD, FAAFP Location:[facility] Appointment Type: ER/Hospital Follow Up Appointment Date:09/29/2022 11:30:00 AM Scheduled Provider:Carmen Haley DO [facility] [place] Appointment Type:Cardiology Follow Up (FT) Future Scheduled Tests Laboratory* B-Type Natriuretic Peptide 09/22/22 * Basic Metabolic Panel 09/22/22 * Basic Metabolic Panel 09/22/22 Radiology* NM Myocardial Spect Rest/Stress 2 Day 09/22/[facility] Future Appointments Appointment Date:09/27/2022 10:40:00 AM Scheduled Provider: Location:[facility] Appointment Type:FM Nurse Visit Appointment Date:09/29/2022 11:30:00 AM Scheduled Provider:Carmen Haley DO [facility] Appointment Type:Cardiology Follow Up (FT) Appointment Date:11/26/2022 02:40:00 PM Scheduled Provider:SRINIVAS Pereyra Tammy L. Location:[facility] Appointment Type: Open Future Scheduled Tests Laboratory* B-Type Natriuretic Peptide 09/22/22 * Basic Metabolic Panel 09/22/22 * Basic Metabolic Panel 09/22/22 Radiology* NM Myocardial Spect Rest/Stress 2 Day 09/22/22 [facility] Evaluation + Plan note Future Appointments Appointment Date:09/29/2022 11:30:00 AM Scheduled Provider:Carmen Haley DO Location:[facility] Appointment Type:Cardiology Follow Up (FT) Appointment Date:11/26/2022 02:40:00 PM Scheduled Provider:SRINIVAS Pereyra Tammy L. Location:[facility] Appointment Type: Open Future Scheduled Tests Laboratory* Basic Metabolic Panel 09/22/22 Radiology* NM Myocardial Spect Rest/Stress 2 Day 09/22/22 [facility] Evaluation + Plan note Future Appointments Appointment Date:09/29/2022 11:30:00 AM Scheduled Provider:Carmen Haley DO [facility] Appointment Type:Cardiology Follow Up (FT) Appointment Date:11/26/2022 02:40:00 PM Scheduled Provider:SRINIVAS Pereyra Tammy L. Location:[facility] Appointment Type: Open Diagnostic Tests Pending * Basic Metabolic Panel 09/27/22 Future Scheduled Tests Laboratory* Basic Metabolic Panel 09/22/22 Radiology* NM Myocardial Spect Rest/Stress 2 Day 09/22/22 [facility] Future Appointments Appointment Date:10/13/2022 09:00:00 AM Scheduled Provider:Carmen Haley DO [facility] Appointment Type:Cardiology Follow Up (FT) Appointment Date:10/18/2022 01:40:00 PM Scheduled Provider:Lupis SCHWARTZ MD, FAAFP Location:[facility] Appointment Type: Open Appointment Date:11/26/2022 02:40:00 PM Scheduled Provider:SRINIVAS Pereyra Tammy L. Location:[facility] Appointment Type: Open Future Scheduled Tests Laboratory* Basic Metabolic Panel 09/22/22 Radiology* NM Myocardial Spect Rest/Stress 2 Day 09/22/22 [facility] + Plan note Future Appointments Appointment Date:10/13/2022 09:00:00 AM Scheduled Provider:Carmen Haley DO [facility] Appointment Type:Cardiology Follow Up (FT) Appointment Date:10/18/2022 01:40:00 PM Scheduled Provider:Lupis SCHWARTZ MD, FAAFP Location:[facility] Appointment Type:FM Open Appointment Date:10/19/2022 02:00:00 PM Scheduled Provider: [facility] Appoint[facility] Type:CV EKG (FT) Appointment Date:10/19/2022 02:30:00 PM Scheduled Provider: [facility] Appointment Type:NM Myocard Spect Multi Rest/Stress-Res Appointment Date:10/19/2022 03:30:00 PM Scheduled Provider: [facility] Appointment Type:NM Myocard Spect Multi Rest/Stress - R Appointment Date:10/20/2022 02:30:00 PM Scheduled Provider: [facility] Appointment Type:NM Myocard Spect MultiRest/Stress-Stre Appointment Date:10/20/2022 03:30:00 PM Scheduled Provider: [facility] Appointment Type:NM Myocard Spect Multi Rest/Stress - S Appointment Date:11/26/2022 02:40:00 PM Scheduled Provider:SRINIVAS Pereyra Tammy L. Location:[facility] Appointment Type: Open Future Scheduled Tests Radiology* NM Myocardial Spect Rest/Stress 2 Day 10/19/22 [facility] [place] Evaluation + Plan note Future Appointments Appointment Date:10/18/2022 01:40:00 PM Scheduled Provider:Lupis SCHWARTZ MD, FAAFP Location:[facility] Appointment Type:FM Open Appointment Date:10/19/2022 02:00:00 PM Scheduled Provider: [facility] Appoint[facility] Type:CV EKG () Appointment Date:10/19/2022 02:30:00 PM Scheduled Provider: [facility] Appointment Type:NM Myocard Spect Multi Rest/Stress-Res Appointment Date:10/19/2022 03:30:00 PM Scheduled Provider: [facility] Appointment Type:NM Myocard Spect Multi Rest/Stress - R Appointment Date:10/20/2022 02:30:00 PM Scheduled Provider: [facility] Appointment Type:NM Myocard Spect MultiRest/Stress-Stre Appointment Date:10/20/2022 03:30:00 PM Scheduled Provider: [facility] Appointment Type:NM Myocard Spect Multi Rest/Stress - S Appointment Date:11/26/2022 02:40:00 PM Scheduled Provider:Yocasta SMITH, DARLEEN-Myron VILLATORO Location:[facility] Appointment Type: Open Future Scheduled Tests Laboratory* Vitamin D 25 Hydroxy 10/13/22 * Creatine Kinase 10/13/22 Radiology* US LE Venous Duplex Insufficiency Bilat 10/13/22 * US PVR Lower EXT Complete Bilat 10/13/22 * NM Myocardial Spect Rest/Stress 2 Day 10/19/22 [facility] Future Appointments Appointment Date:05/30/2023 02:00:00 PM Scheduled Provider:Yocasta SMITH, DARLEEN-Myron VILLATORO Location:[facility] Appointment Type: Open Future Scheduled Tests Laboratory* Vitamin D 25 Hydroxy 10/13/22 * Creatine Kinase 10/13/22 Radiology* US LE Venous Duplex Insufficiency Bilat 10/13/22 [facility] [place] Evaluation + Plan note Future Appointments Appointment Date:04/26/2023 10:00:00 AM Scheduled Provider:Alirio Ramirez MD [facility] Appointment Type:Cardiology Follow Up (FT) Appointment Date:05/30/2023 02:00:00 PM Scheduled Provider:SRINIVAS Pereyra Tammy L. Location:[facility] Appointment Type: Open Future Scheduled Tests Laboratory* Vitamin D 25 Hydroxy 10/13/22 * Creatine Kinase 10/13/22 Radiology* US LE Venous Duplex Insufficiency Bilat 10/13/22 * US PVR Lower EXT Complete Bilat 01/11/23 [facility] [place] Future Appointments Appointment Date:05/09/2023 01:00:00 PM Scheduled Provider: [facility] Appoint[facility] Type:US Duplex Procedures (FT) Appointment Date:05/30/2023 02:00:00 PM Scheduled Provider:SRINIVAS Pereyra Tammy L. Location:[facility] Appointment Type: Open Future Scheduled Tests Laboratory* Vitamin D 25 Hydroxy 10/13/22 * Creatine Kinase 10/13/22 Radiology* US PVR w/ Exercise 05/09/23 * US LE Venous Duplex Insufficiency Bilat 10/13/22 [facility] [place] Evaluation + Plan note Future Appointments Appointment Date:07/25/2023 02:00:00 PM Scheduled Provider:SRINIVAS Pereyra Tammy L. Location:[facility] Appointment Type: Open Future Scheduled Tests Laboratory* Vitamin D 25 Hydroxy 10/13/22 * Creatine Kinase 10/13/22 Radiology* US LE Venous Duplex Insufficiency Bilat 10/13/22 [facility] [place] Future Appointments Appointment Date:10/25/2023 03:00:00 PM Scheduled Provider:Alirio Ramirez MD [facility] Appointment Type:Cardiology Follow Up (FT) Appointment Date:10/26/2023 01:20:00 PM Scheduled Provider:SRINIVAS Pereyra Tammy L. Location:[facility] Appointment Type:FM Open Appointment Date:11/02/2023 10:30:00 AM Scheduled Provider:Walker Phillip MD Location[facility] App[facility]ment Type:[facility] New Patient Future Scheduled Tests Laboratory* Vitamin D 25 Hydroxy 10/13/22 * Creatine Kinase 10/13/22 Radiology* US LE Venous Duplex Insufficiency Bilat 10/13/22 [facility] [place] Evaluation + Plan note Future Appointments Appointment Date:10/26/2023 01:20:00 PM Scheduled Provider:SRINIVAS Pereyra Tammy L. [facility]: Open Appointment Date:11/02/2023 10:30:00 AM Scheduled Provider:Walker Phillip MD Location[facility] App[facility]ment Type:[facility] New Patient Appointment Date:11/10/2023 03:00:00 PM Scheduled Provider: [facility]: Nurse Visit Appointment Date:12/06/2023 03:15:00 PM Scheduled Provider:Alirio Ramirez MD [facility] Appointment Type:Cardiology Follow Up (FT) Future Scheduled Tests Laboratory* B-Type Natriuretic Peptide 10/25/23 * Basic Metabolic Panel 10/25/23 Radiology* Echo Transthoracic Complete 10/25/23 [facility] Future Appointments Appointment Date:11/02/2023 10:30:00 AM Scheduled Provider:Walker Phillip MD Location:[facility] Appointment Type:[facility] New Patient Appointment Date:11/08/2023 03:00:00 PM Scheduled Provider: [facility] [place] Appointment Type:CV Echo (FT) Appointment Date:11/10/2023 03:00:00 PM Scheduled Provider: [facility] Type:FM Nurse Visit Appointment Date:11/25/2023 02:40:00 PM Scheduled Provider:SRINIVAS Pereyra Tammy L. [facility] Type: Open Appointment Date:12/06/2023 03:15:00 PM Scheduled Provider:Alirio Ramirez MD [facility] Appointment Type:Cardiology Follow Up (FT) Future Scheduled Tests Laboratory* B-Type Natriuretic Peptide 10/25/23 * Basic Metabolic Panel 10/25/23 Radiology* Echo Transthoracic Complete 11/08/23 [facility] [place] Evaluation + Plan note Future Appointments Appointment Date:11/08/2023 03:00:00 PM Scheduled Provider: [facility] [place] Appointment Type:CV Echo (FT) Appointment Date:11/10/2023 03:00:00 PM Scheduled Provider: [facility] Type:FM Nurse Visit Appointment Date:11/25/2023 02:40:00 PM Scheduled Provider:Yocasta MSN, CREDIT COLLECTIONS CLERK-IRVING, Myron Hamilton [facility] Type:FM Open Appointment Date:12/06/2023 03:15:00 PM Scheduled Provider:Alirio Ramirez MD [facility] [place] Appoint[facility] Type:Cardiology Follow Up (FT) Appointment Date:12/23/2023 10:30:00 AM Scheduled Provider: [facility] Appointment Type:Surgery FT Appointment Date:12/23/2023 12:00:00 PM Scheduled Provider: Location:[facility] Appointment Type:Surgery FT Appointment Date:01/13/2024 10:45:00 AM Scheduled Provider:Walker Phillip MD Location:[facility] Appointment Type:[facility] Follow Up Future Scheduled Tests Laboratory* Hep B Core Ab, Tot 11/02/23 * Ukcsc-6-Jlmvrvtgjnd 11/02/23 * B-Type Natriuretic Peptide 10/25/23 * Antimitochondrial Antibody, Quantitative 11/02/23 * Smooth Muscle Antibody Screen 11/02/23 * KIM w/Reflex if POS 11/02/23 * IgG, Quant. 11/02/23 * TIBC Calculated 11/02/23 * Hepatitis A Virus (HAV) Antibody, Total 11/02/23 * HCV Antibody RFX to Quant PCR 11/02/23 * Basic Metabolic Panel 10/25/23 * Comprehensive Metabolic Panel 11/02/23 * Ferritin 11/02/23 * Hepatitis B Surface Antibody 11/02/23 * Hepatitis B Surface Antigen 11/02/23 * Iron Level 11/02/23 * PT 11/02/23 Radiology* Echo Transthoracic Complete 11/08/23 [facility] Evaluation + Plan note Future Appointments Appointment Date:11/10/2023 03:00:00 PM Scheduled Provider: Location:[facility] Appointment Type:FM Nurse Visit Appointment Date:11/25/2023 02:40:00 PM Scheduled Provider:Yocasta SMITH, CREDIT COLLECTIONS CLERK-Myron VILLATORO Location:[facility] Appointment Type:FM Open Appointment Date:12/06/2023 03:15:00 PM Scheduled Provider:Alirio Ramirez MD [facility] Appointment Type:Cardiology Follow Up (FT) Appointment Date:12/23/2023 10:30:00 AM Scheduled Provider: Location:[facility] Appointment Type:Surgery FT Appointment Date:12/23/2023 12:00:00 PM Scheduled Provider: Location:[facility] Surgical [facility] Appointment Type:Surgery FT Appointment Date:01/13/2024 10:45:00 AM Scheduled Provider:Walker Phillip MD Location:[facility] Appointment Type:[facility] Follow Up Future Scheduled Tests Laboratory* Hep B Core Ab, Tot 11/02/23 * Ffoag-4-Gfrmgdxiibq 11/02/23 * B-Type Natriuretic Peptide 10/25/23 * Antimitochondrial Antibody, Quantitative 11/02/23 * Smooth Muscle Antibody Screen 11/02/23 * KIM w/Reflex if POS 11/02/23 * IgG, Quant. 11/02/23 * TIBC Calculated 11/02/23 * Hepatitis A Virus (HAV) Antibody, Total 11/02/23 * HCV Antibody RFX to Quant PCR 11/02/23 * Basic Metabolic Panel 10/25/23 * Comprehensive Metabolic Panel 11/02/23 * Ferritin 11/02/23 * Hepatitis B Surface Antibody 11/02/23 * Hepatitis B Surface Antigen 11/02/23 * Iron Level 11/02/23 * PT 11/02/23 [facility] Future App[facility]ments Appointment Date:12/06/2023 03:15:00 PM Scheduled Provider:Alriio Ramirez MD [facility] Appointment Type:Cardiology Follow Up (FT) Appointment Date:12/23/2023 10:30:00 AM Scheduled Provider: Location:[facility] Appointment Type:Surgery FT Appointment Date:12/23/2023 12:00:00 PM Scheduled Provider: Location:[facility] Appointment Type:Surgery FT Appointment Date:01/13/2024 10:45:00 AM Scheduled Provider:Walker Phillip MD Location:[facility] Appointment Type:[facility] Follow Up Appointment Date:02/22/2024 01:20:00 PM Scheduled Provider:Yocasta SMITH, Myron ESPINO Location:[facility] Appointment Type: Open Future Scheduled Tests Laboratory* Hep B Core Ab, Tot 11/02/23 * Wlogm-2-Ujgqwcmimsz 11/02/23 * B-Type Natriuretic Peptide 10/25/23 * Antimitochondrial Antibody, Quantitative 11/02/23 * Smooth Muscle Antibody Screen 11/02/23 * KIM w/Reflex if POS 11/02/23 * IgG, Quant. 11/02/23 * TIBC Calculated 11/02/23 * Hepatitis A Virus (HAV) Antibody, Total 11/02/23 * HCV Antibody RFX to Quant PCR 11/02/23 * Basic Metabolic Panel 10/25/23 * Comprehensive Metabolic Panel 11/02/23 * Ferritin 11/02/23 * Hepatitis B Surface Antibody 11/02/23 * Hepatitis B Surface Antigen 11/02/23 * Iron Level 11/02/23 * PT 11/02/23 [facility] [place] Evaluation + Plan note Future Appointments Appointment Date:12/23/2023 10:30:00 AM Scheduled Provider: Location:[facility] Appointment Type:Surgery FT Appointment Date:12/23/2023 12:00:00 PM Scheduled Provider: Location:[facility] Appointment Type:Surgery FT Appointment Date:01/13/2024 10:45:00 AM Scheduled Provider:Walker Phillip MD Location:[facility] Appointment Type:[facility] Follow Up Appointment Date:02/22/2024 01:20:00 PM Scheduled Provider:Yocasta SMITH, Myron ESPINO Location:[facility] Appointment Type: Open Appointment Date:06/05/2024 01:00:00 PM Scheduled Provider:Alirio Ramirez MD [facility] [place] Appoint[facility] Type:Cardiology Follow Up (FT) Future Scheduled Tests Laboratory* Hep B Core Ab, Tot 11/02/23 * Iadvl-2-Pholejjnnac 11/02/23 * B-Type Natriuretic Peptide 10/25/23 * Antimitochondrial Antibody, Quantitative 11/02/23 * Smooth Muscle Antibody Screen 11/02/23 * KIM w/Reflex if POS 11/02/23 * IgG, Quant. 11/02/23 * TIBC Calculated 11/02/23 * Hepatitis A Virus (HAV) Antibody, Total 11/02/23 * HCV Antibody RFX to Quant PCR 11/02/23 * Basic Metabolic Panel 10/25/23 * Comprehensive Metabolic Panel 11/02/23 * Ferritin 11/02/23 * Hepatitis B Surface Antibody 11/02/23 * Hepatitis B Surface Antigen 11/02/23 * Iron Level 11/02/23 * PT 11/02/23 [facility] Future Appointments Appointment Date:02/22/2024 01:20:00 PM Scheduled Provider:Yocasta MSN, CREDIT COLLECTIONS CLERK-UPPER MARKER, Myron Hamilton Location:[facility] [place] Appointment Type: Open Appointment Date:06/05/2024 01:00:00 PM Scheduled Provider:Adam SAMPSON, Alirio Hooper [facility] Appointment Type:Cardiology Follow Up (FT) Future Scheduled Tests Laboratory* Hep B Core Ab, Tot 11/02/23 * Yfbuu-4-Hixlprviwdk 11/02/23 * B-Type Natriuretic Peptide 10/25/23 * Antimitochondrial Antibody, Quantitative 11/02/23 * Smooth Muscle Antibody Screen 11/02/23 * KIM w/Reflex if POS 11/02/23 * IgG, Quant. 11/02/23 * TIBC Calculated 11/02/23 * Hepatitis A Virus (HAV) Antibody, Total 11/02/23 * HCV Antibody RFX to Quant PCR 11/02/23 * Basic Metabolic Panel 10/25/23 * Comprehensive Metabolic Panel 11/02/23 * Ferritin 11/02/23 * Hepatitis B Surface Antibody 11/02/23 * Hepatitis B Surface Antigen 11/02/23 * Iron Level 11/02/23 * PT 11/02/23 [facility] Evaluation note* Diagnosis SOB (shortness of breath) Shortness of breath Obstructive sleep apnea syndrome Obstructive sleep apnea (adult) (pediatric) Moderate persistent asthma without complication Unspecified asthma Tobacco abuse Tobacco use disorder documented in this encounter Rep Phone: evaluation note* Diagnosis SOB (shortness of breath) Shortness of breath Obstructive sleep apnea (adult) (pediatric) Moderate persistent asthma without complication Unspecified asthma documented in this encounter Rep Phone: evaluation note* Diagnosis Hypertension, unspecified type Bilateral leg edema Edema documented in this encounter [employer] Phone: evaluation note* Diagnosis Onset Date Resolution Status Acute congestive heart failure acute Acute exacerbation of CHF (congestive heart failure) acute Acute respiratory failure with hypoxia acute Chest pain acute Shortness of breath [facility] Work Phone: Evaluation note* Diagnosis Onset Date Resolution Status Acute congestive heart failure acute Acute exacerbation of CHF (congestive heart failure) acute Acute respiratory failure with hypoxia acute Chest pain acute COPD with acute exacerbation acute Shortness of breath acute [facility] Work Phone: Evaluation note* Diagnosis Alcohol abuse- Primary Alcohol abuse, unspecified documented in this encounter [employer] Phone: [email or web address] note* Diagnosis Left hand weakness Muscle weakness (generalized) documented in this encounter [employer] Phone: evalrsevja note* Diagnosis Weakness of both legs Other musculoskeletal symptoms referable to limbs documented in this encounter [employer] Work Phone: evaluation note* Diagnosis Fatigue, unspecified type Screening, lipid Screening for lipoid disorders documented in this encounter [employer] Phone: [email or web address] note* Diagnosis Right hip pain Pain in joint, pelvic region and thigh documented in this encounter [facility] Narrative No data available for this section [facility] [place] [facility] Discharge instructions No data available for this section [facility] Additional Instructions Continue use of CPAP as before.[facility] Work Phone: Hospital Discharge instructions* Attachments The following attachments cannot be sent through Care Everywhere. * Alcohol Intoxication: Acute (Maldivian) [facility]: progress note No data available for this section [facility] Rezkhh for referral (narrative) Referred by: Parish PATE [facility] Rennjx for referral (narrative) Referred by: Lupis SCHWARTZ MD, FAAFP Referred by: EFREN SAMPSON FAAFP, Lupis Chavez [facility] reason for referral (narrative) , colonscopy, hx of polyps Referred by: Yocasta SMITH, CREDIT COLLECTIONS CLERK-UPPER MARKER, Myron Hamilton [facility] Regwhp for referral (narrative) , X-ray tonight, failed PT Referred by: Yocasta SMITH, CREDIT COLLECTIONS CLERK-UPPER MARKER, Myron Hamilton [facility] Assessments Diagnosis Syncope and collapse Pre-operative clearance Preoperative examination, unspecified Essential hypertension Unspecified essential hypertension Hyperlipidemia, unspecified hyperlipidemia type Vitamin D deficiency Unspecified vitamin D deficiency SOB (shortness of breath) Shortness of breath Elevated blood sugar Other abnormal glucose Diagnosis Syncope and collapse Pre-operative clearance Preoperative examination, unspecified Essential hypertension Unspecified essential hypertension Hyperlipidemia, unspecified hyperlipidemia type Vitamin D deficiency Unspecified vitamin D deficiency Diagnosis SOB (shortness of breath) Shortness of breath Diagnosis Syncope and collapse Pre-operative clearance Preoperative examination, unspecified Essential hypertension Unspecified essential hypertension Hyperlipidemia, unspecified hyperlipidemia type Vitamin D deficiency Unspecified vitamin D deficiency Diagnosis Hypertrophy of uterus Right lower quadrant pain Abdominal pain, right lower quadrant Diagnosis Pain, abdominal, nonspecific Abdominal pain, unspecified site Diagnosis RLQ abdominal pain Abdominal pain, right lower quadrant Advance Directives No Advanced Directives Records FoundDocuments on File Type Date Recorded 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 Expl 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 Advance Directives and Living Will Power of Bench Chemist Latest Code Status on File Code Status Date Activated Date Inactivated Comments Full Code 06/18/2018 1:23 PM 06/19/2018 8:22 PM Full Code 04/26/2018 5:22 PM 04/27/2018 1:14 PM Full Code 04/26/2018 11:04 AM 04/26/2018 5:16 PM Full Code 03/15/2018 1:38 PM 03/16/2018 3:51 PM Full Code 03/15/2018 8:18 AM 03/15/2018 1:38 PM Documents on File Type Date Recorded 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 Expl anation Advance Directives and Living Will Power of Bench Chemist Latest Code Status on File Code Status Date Activated Date Inactivated Comments Full Code 06/18/2018 1:23 PM 06/19/2018 8:22 PM Full Code 04/26/2018 5:22 PM 04/27/2018 1:14 PM Full Code 04/26/2018 11:04 AM 04/26/2018 5:16 PM Full Code 03/15/2018 1:38 PM 03/16/2018 3:51 PM Full Code 03/15/2018 8:18 AM 03/15/2018 1:38 PM Documents on File Type Date Recorded 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 Expl anation ACP-Advance Directive ACP-Power of Bench Chemist Latest Code Status on File Code Status Date Activated Date Inactivated Comments Full Code 03/17/2020 11:39 AM Full Code 03/17/2020 8:35 AM 03/17/2020 11:39 AM Full Code 06/18/2018 1:23 PM 06/19/2018 8:22 PM Documents on File Type Date Recorded 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 Expl 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 ACP-Advance Directive ACP-Power of Bench Chemist Latest Code Status on File Code Status Date Activated Date Inactivated Comments Full Code 03/17/2020 11:39 AM 03/17/2020 3:44 PM Full Code 03/17/2020 8:35 AM 03/17/2020 11:39 AM Full Code 06/18/2018 1:23 PM 06/19/2018 8:22 PM Latest Code Status on File Code Status Date Activated Date Inactivated Comments Full Code 03/17/2020 11:39 AM 03/17/2020 3:44 PM Advance Directive Response Recorded Date/ Time Advance Directives No September 10, 2 023 12:11pm Advance Directive Response Recorded Date/ Time Advance Directives No September 10, 023 1:11pm Latest Code Status on File Code Status Date Activated Date Inactivated Comments Full Code 03/17/2020 11:39 AM 03/17/2020 3:44 PM Code Status History Code Status Date Activated Date Inactivated Comments Full Code 03/17/2020 8:35 AM 03/17/2020 11:39 AM Full Code 06/18/2018 1:23 PM 06/19/2018 8:22 PM Full Code 04/26/2018 5:22 PM 04/27/2018 1:14 PM Full Code 04/26/2018 11:04 AM 04/26/2018 5:16 PM Latest Code Status on File Code Status Date Activated Date Inactivated Comments Full Code 03/17/2020 11:39 AM 03/17/2020 3:44 PM Code Status History Code Status Date Activated Date Inactivated Comments Full Code 03/17/2020 8:35 AM 03/17/2020 11:39 AM Full Code 06/18/2018 1:23 PM 06/19/2018 8:22 PM Full Code 04/26/2018 5:22 PM 04/27/2018 1:14 PM Full Code 04/26/2018 11:04 AM 04/26/2018 5:16 PM Reason for Referral Status Reason Specialty Diagnoses / Procedures Re ferred By Contact Referred To Contact Open Cardiology Diagnoses Syncope and collapse Pre-operative clearance Essential hypertension Hyperlipidemia, unspecified hyperlipidemia type Vitamin D deficiency Procedures EKG 12 Lead Joselito Hsu MD [address] [place] [id number] Status Reason Specialty Diagnoses / Procedures Referred By Contact Referred To Contact Not Required - [facility] Pulmonary Function Testing Diagnoses SOB (shortness of breath) Procedures Full PFT Study With Bronchodilator HC BEFORE / AFTER BRONCHODILATOR Joselito Hsu MD [address] [place] [id number] [facility] [address] [place] [id number] Status Reason Specialty Diagnoses / Procedures Referred By Contact Referred To Contact Pending Review Radiology Diagnoses Hypertrophy of uterus Right lower quadrant pain Procedures US NON OB TRANSVAGINAL Mulu Dean, CREDIT COLLECTIONS CLERK - UPPER MARKER [address] [place] [address] Status Reason Specialty Diagnoses / Procedures Referre d By Contact Referred To Contact Open Radiology Diagnoses Hypertrophy of uterus Right lower quadrant pain Procedures US PELVIS COMPLETE Mulu Dean APRN - [facility] [address] [place] [address] Status Reason Specialty Diagnoses / Procedures Referre d By Contact Referred To Contact Open Radiology Diagnoses RLQ abdominal pain Procedures CT ABDOMEN PELVIS W IV CONTRAST Additional Contrast? Oral Mulu Dean APRN - [facility] [address] [place] [address] Specialty Diagnoses / Procedures Referred By Contac Referred To Contact Diagnoses SOB (shortness of breath) Obstructive sleep apnea syndrome Moderate persistent asthma without complication Tobacco abuse Procedures Full PFT Study With Bronchodilator Mulu Dean APRN - [facility] [address] [place] [address] Referral ID Status Reason Start Date Expiration Date V isits Requested Visits Authorized [id number] Pending Review 05/15/2021 05/14/2022 1 1 Specialty Diagnoses / Procedures Referred By Contac t Referred To Contact Cardiology Diagnoses Hypertension, unspecified type Bilateral leg edema I10 (ICD-10-CM) - Hypertension, unspecified type Procedures Echocardiogram complete [place] ECHO TTHRC R-T 2D W/WOM-MODE COMPL SPEC&COLR D [address] - [place] ECHO TTHRC R-T 2D W/WOM-MODE COMPL SPEC&COLR D Lupis Schwartz MD [address] [place] [address] Referral ID Status Reason Start Date Expiration Date Visits Re quested Visits Authorized [id number] Closed 08/25/2022 08/20/2023 1 1 Discharge Instructions * Instructions* Echo Paiz RN - 03/17/2020 Discharge Instructions for Colonoscopy Colonoscopy is a visual exam of the lining of the large intestine, also called the bowel or colon, with a colonoscope. A colonoscope is a flexible tube with a light and a viewing device. It allows the doctor to view the inside of the colon through a tiny video camera. Colonoscopy is performed for many reasons: unexplained anemia , pain, diarrhea , bloody stools, cancer screening, among many other reasons. Complications from a colonoscopy are rare. Some possible serious complications include perforated bowel (which might require surgery) and bleeding (which could require blood transfusion ). Minor complications include bloating, gas, and cramping that can last for 1-2 days after the procedure. Because air is put into your colon during the procedure, it is normal to pass large amounts of air from your rectum. You may not have a bowel movement for 1-3 days after the procedure. What You Will Need Someone to drive you home after the procedure Steps to Take Home Care Rest when you get home. Because the sedative will make you drowsy, don't drive, operate machinery, or make important decisions the day of the procedure. Feelings of bloating, gas, or cramping may persist for 24 hours. Diet Try sips of water first. If tolerated, resume regular diet or the diet recommended by your physician. Do not drink alcohol for 24 hours. Physical Activity Ask your doctor when you will be able to return to work. Do not drive, operate heavy machinery, or do activities that require coordination or balance for 24hours. Otherwise, return to your normal routine as soon as you are comfortable to do so, which is usually the next day after the procedure. Medications When taking medications, it's important to: Take your medication as directednot more, not less, not at a different time. Do not stop taking them without consulting your healthcare provider. Don't share them with anyone else. Know what effects and side effects to expect, and report them to your healthcare provider. If you are taking more than one drug, even if it is an wnsz-fdc-mlaaxzp medication, herb, or dietary supplement, be sure to check with a physician or pharmacist about drug interactions. Plan ahead for refills so you don't run out. Lifestyle Changes The results of your colonoscopy will determine if any lifestyle changes are necessary. Follow-up The doctor will usually give you a preliminary report after the medication wears off and you are more alert. The results from a biopsy can take as long as 1-2 weeks to be completed. Schedule a follow-up appointment as directed by your doctor. You should schedule a follow-up colonoscopy as recommended by your doctor. Call Your Doctor If Any of the Following Occurs Monitor your recovery once you leave the hospital. As soon as you have a problem, alert your doctor. If any of the following occur, call your doctor: Bleeding from your rectum; notify your doctor if you pass a teaspoonful or more of blood Black, tarry stools Severe abdominal pain Hard, swollen abdomen Signs of infection, including fever or chills Inability to pass gas or stool Coughing, shortness of breath, chest pain, severe nausea or vomiting In case of an emergency, call 911 immediately. documented in this encounter History of Present Illness * Marina Villasenor RN - 03/17/2020 1:14 PM EDT Discharge Criteria Outpatients must meet criteria 1 through 7. Up to restroom, void sufficient amount. Yes 1. Minimum 30 minutes after last dose of sedative medication, minimum 120 minutes after last dose of reversal agent. Yes 2. Systolic BP stable within 20 mmHg for 30 minutes & systolic BP between 90 & 180 or within 10 mmHg of baseline. Yes 3. Pulse between 60 and 100 or within 10 bpm of baseline. Yes 4. Spontaneous respiratory rate >/= 10 per minute. Yes 5. SaO2 >/= 95 or >/= baseline. Yes 6. Able to cough and swallow or return to baseline function. Yes 7. Alert and oriented or return to baseline mental status. Yes 8. Demonstrates controlled, coordinated movements, ambulates with steady gait, or return to baseline activity function. Yes 9. Minimal or no pain or nausea, or at a level tolerable and acceptable to patient. Yes 10. Takes and retains oral fluids as allowed. Yes 11. Procedural / perioperative site stable. Minimal or no bleeding. Yes 12. If GI endoscopy procedure, minimal or no abdominal distention or passing flatus. Yes 13. Written discharge instructions and emergency telephone number provided. Yes 14. Accompanied by a responsible adult. Yes Adult patient discharged from facility without responsible person meets above criteria plus the following: a) remains awake without stimulus for 30 minutes b) oriented appropriate for age c) all vital signs stable d) no significant risk of losing protective reflexes e) able to maintain pre-procedure mobility without assistance f) no nausea or dizziness g) transportation arrangements that do not require patient to operate motor Vehicle. Yes * Marina Villaesnor RN - 03/17/2020 1:13 PM EDT Pt consumed 90% of the golytely and began having BM's, 2 small chunks of tissue noted in stool and then pt had another large chunk of tissue, all 3 samples collected and taken to lab as directed; * Marina Villasenor RN - 03/17/2020 11:46 AM EDT gave verbal orders for golytely solution due to there was one polyp that he was not able to remove and pt will need to drink the golytely here and expel the polyp, once polyp is expelled then pt may be discharged, order noted and pharmacy made aware; documented in this encounter Chief Complaint and Reason for Visit Chief Complaint chest pain Reason for Visit Acute congestive hea rt failure Acute exacerbation of CHF (congestive heart failure) Acute respiratory failure with hypoxia Chest pain Shortness of breath Chief Complaint chest pain Reason for Visit Acute congestive hea rt failure Acute exacerbation of CHF (congestive heart failure) Acute respiratory failure with hypoxia Chest pain COPD with acute exacerbation Shortness of breath Summary Purpose Family History No Family History Records Found Additional Source Comments Reason for Visit (unrecogniz ed section and content) Status Reason Specialty Diagnoses / Procedures Referred By Contact Referred To Contact Not Required - [facility] Pulmonary Function Testing Diagnoses SOB (shortness of breath) Procedures Full PFT Study With Bronchodilator HC BEFORE / AFTER BRONCHODILATOR Joselito Hsu MD [address] [place] [address] [facility] [address] [place] [address] Status Reason Specialty Diagnoses / Procedures Referred By Contact Referred To Contact Pending Review Radiology Diagnoses Hypertrophy of uterus Right lower quadrant pain Procedures HC US PELVIS COMPLETE Mulu Dean, DARLEEN - [place] [address] [place] [address] [facility] [address] [place] [address] Status Reason Specialty Diagnoses / Procedures Re ferred By Contact Referred To Contact Diagnoses Right lower quadrant abdominal pain Weight gain RIGHT LOWER ABDOMINAL PAIN, [facility] [place] COLONOSCOPY FLX DX W/COLLJ SPEC WHEN PFRMD [place] ESOPHAGOGASTRODUODENOSCOPY TRANSORAL DIAGNOSTIC COLONOSCOPY EGD ESOPHAGOGASTRODUODENOSCOPY Glenn Malik MD [address] [place] [address] [facility] Status Reason Specialty Diagnoses / Procedures Referre d By Contact Referred To Contact Closed Radiology Diagnoses Right lower quadrant pain Procedures CT ABDOMEN PELVIS W CONTRAST Mulu Dean APRN - [facility] [address] [place] [address] Scan [address] [place] [address] Specialty Diagnoses / Procedures Referred By Joan dawson Referred To Contact Diagnoses SOB (shortness of breath) Obstructive sleep apnea syndrome Moderate persistent asthma without complication Tobacco abuse Procedures Full PFT Study With Bronchodilator Mulu Dean APRN [facility] [address] [place] [address] Referral ID Status Reason Start Date Expiration Date V isits Requested Visits Authorized [id number] Pending Review 05/15/2021 05/14/2022 1 1 Reason Comments Education Class Specialty Diagnoses / Procedures Referred By Joan dawson Referred To Contact Cardiology Diagnoses Hypertension, unspecified type Bilateral leg edema I10 (ICD-10-CM) - Hypertension, unspecified type Procedures Echocardiogram complete [place] ECHO TTHRC R-T 2D W/WOM-MODE COMPL SPEC&COLR D 19603 - [place] ECHO TTHRC R-T 2D W/WOM-MODE COMPL SPEC&COLR D Lupis Schwartz MD [address] [place] [address] Referral ID Status Reason Start Date Expiration Date Visits Re quested Visits Authorized [id number] Closed 08/25/2022 08/20/2023 1 1 Reason Comments Chest Pain Chest pain, SOB x1 d ay patient states this started after had 2 bottles of rum today Specialty Diagnoses / Procedures Referred By Joan t Referred To Contact Radiology Diagnoses Fatigue, unspecified type Screening, lipid Procedures VL DUP LOWER EXTREMITY VENOUS BILATERAL US DUP LOWER EXTREMITIES BILATERAL VENOUS Carmen Haley, DO [address] [place] [address] Referral ID Status Reason Start Date Expiration Date Visits Re quested Visits Authorized [id number] Open 11/17/2022 11/17/2023 1 1 Care Teams (unrecognized sec tion and content) Metal Grinder Relationship Specialty Start Date End Date Mulu Dean APRN - CNP [address] [place] [address] PCP - General Family Medicine 02/17/17 Metal Grinder Relationship Specialty Start Date End Date Mulu Dean APRN - CNP [address] [place] [address] PCP - General Family Medicine 02/17/17 Metal Grinder Relationship Specialty Start Date End Date Mulu Dean APRN - CNP [address] [place] [address] PCP - General Family Medicine 02/17/17 Metal Grinder Relationship Specialty Start Date End Date Mulu Dean APRN - CNP [address] [place] [address] PCP - General Family Medicine 02/17/17 Metal Grinder Relationship Specialty Start Date End Date Mulu Dean APRN - CNP [address] [place] [address] PCP - General Family Medicine 02/17/17 Metal Grinder Relationship Specialty Start Date End Date Mulu Dean APRN - CNP [address] [place] [address] PCP - General Family Medicine 02/17/17 Metal Grinder Relationship Specialty Start Date End Date Mulu Dean APRN - CNP [address] [place] [address] PCP - General Family Medicine 02/17/17 Team Status: Active Member Role Status Dates NON STAFF Primary Care Provider Active Team Status: Active Member Role Status Dates NON STAFF Primary Care Provider Active Joo Ramos , DO Emergency Provider Active Marilyn Sun MD Admit Provider, Attending Provi marty Active Team Status: Active Member Role Status Dates Lupis Schwartz MD Primary Care Provider Active Team Status: Inactive Member Role Status Dates Joo Ramos , DO Emergency Provider Active Marilyn Sun MD Admit Provider Active José Sanchez MD Attending Provider Active Lupis Schwartz MD Primary Care Provider Active Metal Grinder Relationship Specialty Start Date End Date Mulu Dean APRN - [employer] [address] [place] [address] PCP - General Family Medicine 02/17/17 Metal Grinder Relationship Specialty Start Date End Date Mulu Dean APRN - [facility] [address] [place] [address] PCP - General Family Medicine 02/17/17 Metal Grinder Relationship Specialty Start Date End Date Mulu Dean APRN - [facility] [address] [place] [address] PCP - General Family Medicine 02/17/17 Metal Grinder Relationship Specialty Start Date End Date Mulu Dean APRN - [employer] PCP - General Family Medicine 02/17/17 Metal Grinder Relationship Specialty Start Date End Date Myron Rust APRN - [facility] [address] [place] [id number] PCP - General Nurse Practitioner [facility] 04/29/23 Metal Grinder Relationship Specialty Start Date End Date Myron Rust APRN - [employer] [address] [place] [id number] PCP - General Nurse Practitioner Family 04/29/23 Metal Grinder Relationship Specialty Start Date End Date Myron RustDARLEEN - [facility] [address] [place] [address] PCP - General Nurse Practitioner Family 04/29/23 Goals (unrecognized section and content) Goals may be documented in a n alternate section INFORMATION SOURCE (unrecogn ized section and content) DATE CREATED AUTHOR 09/18/2022 [facility] DATE CREATED AUTHOR AUTHOR'S ORGANIZ ATION 02/10/2023 [facility] DATE CREATED AUTHOR AUTHOR'S ORGANIZ ATION 09/01/2023 [facility] DATE CREATED AUTHOR AUTHOR'S ORGANIZ ATION 12/23/2023 [facility] DATE CREATED AUTHOR AUTHOR'S ORGANIZ ATION 12/29/2023 [facility] DATE CREATED AUTHOR AUTHOR'S ORGANIZ ATION 01/29/2024 [facility] Scheduled Active and Recently Administ ered Medications (unrecognized section and content) Medication Order 10/13/2022 10/14/2022 10/15/2022 ipratropium (ATROVENT) 0.02 % nebulizer solution 0.5 mg (COMPLETED) 0.5 mg, Nebulization, ONCE, 1 dose, On Mery 10/14/22 at 2200, Initiate RT Bronchodilator Protocol: No 2202 (Given - Provider: Onelia Avalos RCP) FOR RECORDS PERTAINING TO PATIENTS WHO ARE OR HAVE BEEN ENROLLED IN A CHEMICAL DEPENDENCY/SUBSTANCEABUSE PROGRAM, SOME INFORMATION MAY BE OMITTED. This clinical summary was aggregated from multiple sources. Caution should be exercised in using it in the provision of clinical care. This summary normalizes information from multiple sources, and as a consequence, information in this document may materially change the coding, format and clinical context of patient data. In addition, data may be omitted in some cases. CLINICAL DECISIONS SHOULD BE BASED ON THE PRIMARY CLINICAL RECORDS. [facility]. provides no warranty or guarantee of the accuracy or completeness of information in this document.
[2024-02-06] MEDS: 0.9 % SODIUM CHLORIDE 10 ML SYRINGE - SALINE FLUSH INJ (09:35)
[2024-02-06] MEDS: TRIAMCINOLONE ACETONIDE 40 MG/ML VIAL 80 MG INJ (09:35)
[2024-02-06] MEDS: BUPIVACAINE HCL 0.25% PF 25 MG/10 ML VIAL INJ (09:35)
[2024-02-06] MEDS: LIDOCAINE HCL 2% 400 MG/20 ML MDV 5 ML INJ (09:36)
[2024-02-06] MEDS: IOHEXOL 240 MG/ML - 10 ML VIAL INJ (09:36)
[2024-02-06 09:38] VITALS: BP 129/57; BP 131/60; PULSE 72; O2SAT 90; O2SAT 93
--- NOTE | 2024-02-06 09:39 | P.ON_ITS ---
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 Informed consent was obtained and placed on the chart.? Patient was brought to the medical procedure unit and placed in the prone position where a timeout was completed verifying the correct patient, procedure site, position, and planned special equipment using sterile aseptic technique.? Under direct fluoroscopic visualization a 25-gauge Quincke tipped spinal needle was advanced to the designated neural foramen where contrast dye was injected to show adequate spread.? The needle was inserted at level L4-5. There was no evidence of vascular or adverse uptake.? Epidural spread was appreciated.? The above- mentioned injectate was then placed in a 1.5 mL aliquot preceded by negative aspiration.? The needle was removed. The needle was inserted and the procedure repeated at level L5-S1.? The surgery site was covered.? Patient was taken to the postprocedural recovery area and monitored for an appropriate length of time before found suitable for discharge in the accompaniment of a responsible adult. Anesthesia: Local Surgeon: Calvin Palmer Pathology: none sent Condition: stable Disposition: no change
== END 2024-02-06 09:44 | disposition home or self-care (01) ==
LOC: SURGOUT 08:43
PROVIDERS: Visit Provider Anesthesiology
DX: M48.062 Spinal stenosis, lumbar region with neurogenic claudication (principal)
CPT/HCPCS: 64483; 64484; 82948; J0665; J3301; Q9966

== ENCOUNTER 2024-02-16 14:45 | Outpatient (OUT) | payer OTHER, SELFPAY ==
--- NOTE | 2024-02-16 15:05 | P.CN_ITS ---
Consult Note: HPI Data of Consult Patient: known to practice within the last 3 years Requesting Physician: Eda Christianson NP Primary Care Provider: Non-Staff Physician, MD Consult Narrative Reason for consult: low back right leg pain Narrative: Carmen Casiano a pleasant 63 year old female presents for evaluation and management of lumbar stenosis with NC. Patient has failed to benefit from greater than 6 weeks of PT/HEP, tylenol, motrin, gabapentin 300mg TID, and tramadol 50mg PRN. Reporting >50% improvement from recent right L4-5 L5-S1 TFESI. Pain 4/10 increasing to 7/10 with stairs, standing, walking. Pain improved with sitting, reclining, heat. cc:: CC: Eda Christianson NP Review of Systems ROS Status of ROS 10 or more systems reviewed and unremark able except as noted in history and below Musculoskeletal Reports: back pain PFSH PFS Medical History (Updated 02/01/24 @ 10:24 by Ivory Ryan RN) Rheumatoid arthritis ?M06.9 - Rheumatoid arthritis, unspecified (ICD-10) Diabetes ?E11.9 - Type 2 diabetes mellitus without complications (ICD-10) Sleep apnea ?G47.30 - Sleep apnea, unspecified (ICD-10) Asthma ?J45.909 - Unspecified asthma, uncomplicated (ICD-10) CHF (congestive heart failure) ?I50.9 - Heart failure, unspecified (ICD-10) Surgical History History of cataract extraction ?Z98.49 - Cataract extraction status, unspecified eye (ICD-10) History of foot surgery ?Z98.890 - Other specified postprocedural states (ICD-10) History of knee replacement ?Z96.659 - Presence of unspecified artificial knee joint (ICD-10) Meds Home Medications and Allergies Home Medications ?Medication ?Instructions ?Recorded ?Confirmed ?Type aripiprazole 2 mg tablet (Abilify) 2 mg PO DAILY 05/18/23 02/06/24 History cholecalciferol (vitamin D3) 50 50 mcg PO DAILY 05/18/23 02/06/24 History mcg (2,000 unit) capsule (Vitamin D3) empagliflozin 10 mg tablet 10 mg PO DAILY 05/18/23 02/06/24 History (Jardiance) fluoxetine 20 mg capsule 40 mg PO DAILY 05/18/23 02/06/24 History furosemide 40 mg tablet 40 mg PO DAILY 05/18/23 02/06/24 History glipizide 2.5 mg tablet 2.5 mg PO DAILY 05/18/23 02/06/24 History pantoprazole 40 mg tablet,delayed 40 mg PO DAILY 05/18/23 02/06/24 History release potassium chloride 20 mEq 20 meq PO DAILY 05/18/23 02/06/24 History tablet,extended release(part/cryst) (Klor-Con M) rosuvastatin 40 mg tablet 40 mg PO DAILY 05/18/23 02/06/24 History sacubitril 24 mg-valsartan 26 mg 1 tab PO BID 05/18/23 02/06/24 History tablet (Entresto) spironolactone 25 mg tablet 25 mg PO DAILY 05/18/23 02/06/24 History dulaglutide 1.5 mg/0.5 mL 1.5 mg subcut QWEEK 01/26/24 02/06/24 History subcutaneous pen injector (Trulicity) gabapentin 300 mg capsule 300 mg PO TID 01/26/24 02/06/24 History tramadol 50 mg tablet 50 mg PO DAILY 01/26/24 02/06/24 History trazodone 50 mg tablet 50 mg PO DAILY 01/26/24 02/06/24 History diazepam 10 mg tablet 10 mg PO Q1H PRN sedation 02/06/24 02/06/24 History Allergies Allergy/AdvReac Type Severity Reaction Status Date / Time No Known Drug Allergies Allergy Verified 02/06/24 08:48 Exam Constitutional Documenting provider has reviewed patient's vital signs: yes Common normals: no apparent distress, oriented x3, healthy appearing, alert and well nourished General appearance: cooperative Nutritional appearance: obese HENMT Common normals: normocephalic, hearing grossly normal bilaterally and moist oral mucous membranes Head and scalp: normocephalic Eye Common normals: PERRL Pupil: PERRL Neck & C-Spine Common normals: full ROM General: normal visual inspection Chest Common normals: inspection of chest normal Respiratory Common normals: normal respiratory effort, no retractions and no use of accessory muscles Back & Pelvis Lumbar spine/lower back: ROM limited, pain with ROM and straight leg raise negative bilaterally Sacroiliac joints: SI joints normal Other: sensation intact BLE strength 5/5 in BLE positive axial facet loading bilaterally, right greater than left tenderness over L4-S1 facets Extremity Common normals: normal to inspection and full ROM Other: negative internal and external rotation of hip, no tenderness over GTB Neuro Common normals: oriented x3, CN's II-XII intact bilaterally, moves all extremities, no focal motor deficits, no sensory deficits noted, deep tendon reflexes 2+ bilaterally and gait normal Sensorium/orientation: alert Motor exam: strength 5/5 throughout and no movement abnormalities noted Psych Common normals: mental status grossly normal, thought process normal, cooperative, affect normal, speech normal and activity/motor behavior normal Speech: normal speech Thought process: normal thought process Results Additional Findings Additional findings: If on a controlled substance or opioids, I have checked an [place] report on this patient and there are no aberrancies noted in the prescribing history.??If on a controlled substance or opioid a drug screen was completed and reviewed within the last year, and if there has not been a drug screen completed we ordered one today to monitor higher risk, state monitored pain medication use. As part of providing excellent, safe, comprehensive care, the following was completed at our patient's visit: 1. A medication reconciliation and review to ensure accurate knowledge of current/active medications, including asking our patients to inform us about any bwlw-bnd-rjfhqrs medications or herbal remedies/nutritional supplements/alternative remedies. 2. A review to specifically ensure our patients have had annual screening for screening for depression, screening for tobacco use, and screening for unhealthy alcohol use. For concerning screenings had a discussion with the patient, provided patient education, and recommended follow-up with primary care provider when appropriate. If patient noted with a risk of falling, they received education on strength, gait, and balance training to prevent future risk of falling. Assessment and Plan Assessment and Plan (1) Lumbar spondylosis: Assessment and Plan: The patient has had over 3 months of moderate to severe low back pain with functional impairment and inadequate response to conservative care including NSAIDS (unless there are contraindication such as concurrent blood thinners), multiple oral or topical pain medications, and home exercise program/physical therapy.? Patient has completed >6 weeks of guided home exercise program and/or formal physical therapy program without relief of their symptoms.? I have reviewed the imaging of the lumbar and no red flags were identified.? We discussed the risks and benefits of the procedure with the patient, and we are NOT planning on using sedation as outlined in the guidelines from Medicare unless there is a documented reason that sedation would be strongly recommended.?? The procedure will be completed with fluoroscopic guidance.? (2) Lumbar radiculopathy: (3) Lumbar stenosis with neurogenic claudication: Plan bilateral L4-5 L5-S1 facet medial branch block x2 working towards thermal RFA, pt to call to schedule continue current medications continue HEP as tolerated f/u after each injection or in 3 months
== END 2024-02-16 14:46 | disposition home or self-care (01) ==
LOC: PM 14:45
PROVIDERS: Visit Provider Nurse Practitioner
DX: M47.816 Spondylosis without myelopathy or radiculopathy, lumbar region (principal); M54.16 Radiculopathy, lumbar region; M48.062 Spinal stenosis, lumbar region with neurogenic claudication
CPT/HCPCS: G0463

== ENCOUNTER 2024-05-10 12:17 | Outpatient (OUT) | payer OTHER, SELFPAY ==
--- NOTE | 2024-05-10 12:39 | P.CN_ITS ---
Consult Note: HPI Data of Consult Patient: known to practice within the last 3 years Requesting Physician: Eda Christianson NP Primary Care Provider: Non-Staff Physician, MD Consult Narrative Reason for consult: low back bilateral leg pain Narrative: Carmen Casiano a pleasant 63 year old female presents for evaluation and management of lumbar stenosis with NC. Patient has failed to benefit from greater than 6 weeks of PT/HEP, tylenol, motrin, gabapentin 300mg TID, and tramadol 50mg PRN in the past, stopped gabapentin 1 month ago with increased pain. previous right L4- 5 L5-S1 TFESI provided >50% improvement for at least 3 months. Pain 9/10 increasing to 10/10 with stairs, standing, walking. Pain improved with sitting, reclining, heat. cc:: CC: Eda Christianson NP Review of Systems ROS Status of ROS 10 or more systems reviewed and unremark able except as noted in history and below Musculoskeletal Reports: back pain, extremity pain and joint pain PFSH PFSH Medical History (Updated 05/10/24 @ 12:41 by Eda Christianson NP) Rheumatoid arthritis ?M06.9 - Rheumatoid arthritis, unspecified (ICD-10) Diabetes ?E11.9 - Type 2 diabetes mellitus without complications (ICD-10) Sleep apnea ?G47.30 - Sleep apnea, unspecified (ICD-10) Asthma ?J45.909 - Unspecified asthma, uncomplicated (ICD-10) CHF (congestive heart failure) ?I50.9 - Heart failure, unspecified (ICD-10) Surgical History History of cataract extraction ?Z98.49 - Cataract extraction status, unspecified eye (ICD-10) History of foot surgery ?Z98.890 - Other specified postprocedural states (ICD-10) History of knee replacement ?Z96.659 - Presence of unspecified artificial knee joint (ICD-10) Meds Home Medications and Allergies Home Medications ?Medication ?Instructions ?Recorded ?Confirmed ?Type aripiprazole 2 mg tablet (Abilify) 2 mg PO DAILY 05/18/23 02/06/24 History cholecalciferol (vitamin D3) 50 50 mcg PO DAILY 05/18/23 02/06/24 History mcg (2,000 unit) capsule (Vitamin D3) empagliflozin 10 mg tablet 10 mg PO DAILY 05/18/23 02/06/24 History (Jardiance) fluoxetine 20 mg capsule 40 mg PO DAILY 05/18/23 02/06/24 History furosemide 40 mg tablet 40 mg PO DAILY 05/18/23 02/06/24 History glipizide 2.5 mg tablet 2.5 mg PO DAILY 05/18/23 02/06/24 History pantoprazole 40 mg tablet,delayed 40 mg PO DAILY 05/18/23 02/06/24 History release potassium chloride 20 mEq 20 meq PO DAILY 05/18/23 02/06/24 History tablet,extended release(part/cryst) (Klor-Con M) rosuvastatin 40 mg tablet 40 mg PO DAILY 05/18/23 02/06/24 History sacubitril 24 mg-valsartan 26 mg 1 tab PO BID 05/18/23 02/06/24 History tablet (Entresto) spironolactone 25 mg tablet 25 mg PO DAILY 05/18/23 02/06/24 History dulaglutide 1.5 mg/0.5 mL 1.5 mg subcut QWEEK 01/26/24 02/06/24 History subcutaneous pen injector (Trulicity) gabapentin 300 mg capsule 300 mg PO TID 01/26/24 02/06/24 History tramadol 50 mg tablet 50 mg PO DAILY 01/26/24 02/06/24 History trazodone 50 mg tablet 50 mg PO DAILY 01/26/24 02/06/24 History diazepam 10 mg tablet 10 mg PO Q1H PRN sedation 02/06/24 02/06/24 History Allergies Allergy/AdvReac Type Severity Reaction Status Date / Time No Known Drug Allergies Allergy Verified 02/06/24 08:48 Exam Constitutional Documenting provider has reviewed patient's vital signs: yes Common normals: no apparent distress, oriented x3, healthy appearing, alert and well nourished General appearance: cooperative Nutritional appearance: obese HENMT Common normals: normocephalic, hearing grossly normal bilaterally and moist oral mucous membranes Head and scalp: normocephalic Eye Common normals: PERRL Pupil: PERRL Neck & C-Spine Common normals: full ROM General: normal visual inspection Chest Common normals: inspection of chest normal Respiratory Common normals: normal respiratory effort, no retractions and no use of accessory muscles Back & Pelvis Lumbar spine/lower back: ROM limited, pain with ROM, straight leg raise positive right and straight leg raise positive left Sacroiliac joints: SI joint(s) abnormal Other: decreased sensation to bilateral L4,5,S1 bilateral sij positive aliyah(patricks), gaenslens, thigh thrust, compression test strength 4/5 in BLE increased pain with standing walking improved with sitting and forward flexion positive axial facet loading bilaterally, right greater than left tenderness over L4-S1 facets Extremity Common normals: normal to inspection and full ROM Other: negative internal and external rotation of hip, no tenderness over GTB Neuro Common normals: oriented x3, CN's II-XII intact bilaterally, moves all extremities, no focal motor deficits, no sensory deficits noted and deep tendon reflexes 2+ bilaterally Sensorium/orientation: alert Motor exam: strength 5/5 throughout and no movement abnormalities noted Psych Common normals: mental status grossly normal, thought process normal, cooperative, affect normal, speech normal and activity/motor behavior normal Speech: normal speech Thought process: normal thought process Results Additional Findings Additional findings: If on a controlled substance or opioids, I have checked an [place] report on this patient and there are no aberrancies noted in the prescribing history.??If on a controlled substance or opioid a drug screen was completed and reviewed within the last year, and if there has not been a drug screen completed we ordered one today to monitor higher risk, state monitored pain medication use. As part of providing excellent, safe, comprehensive care, the following was completed at our patient's visit: 1. A medication reconciliation and review to ensure accurate knowledge of current/active medications, including asking our patients to inform us about any bbwd-bnr-bwoaxze medications or herbal remedies/nutritional supplements/alternative remedies. 2. A review to specifically ensure our patients have had annual screening for screening for depression, screening for tobacco use, and screening for unhealthy alcohol use. For concerning screenings had a discussion with the patient, provided patient education, and recommended follow-up with primary care provider when appropriate. If patient noted with a risk of falling, they received education on strength, gait, and balance training to prevent future risk of falling. Assessment and Plan Assessment and Plan (1) Lumbar stenosis with neurogenic claudication: (2) Lumbar degenerative disc disease: (3) Lumbar spondylosis: (4) Myalgia: Plan bilateral L5-S1 TFESI under fluoroscopy for lumbar stenosis with NC, risks vs benefits reviewed. procedure to be completed with 10mg po valium 30-60mins prior to procedure for anxiolysis consider bilateral SIJ injection in the future restart gabapentin 300mg TID, risks vs benefits reviewed start flexeril 10mg TID PRN pain/spasms continue HEP as tolerated update UDS today f/u after injection
== END 2024-05-10 12:18 | disposition home or self-care (01) ==
LOC: PM 12:18
PROVIDERS: Visit Provider Nurse Practitioner
DX: M51.369 Other intervertebral disc degeneration, lumbar region without mention of lumbar back pain or lower extremity pain (principal); M47.816 Spondylosis without myelopathy or radiculopathy, lumbar region; M79.18 Myalgia, other site
CPT/HCPCS: G0463

== ENCOUNTER 2024-05-21 09:03 | Day surgery (SDC) | payer OTHER, SELFPAY ==
[2024-05-21 09:13] VITALS: BP 114/73; PULSE 91; TEMP 36.6; O2SAT 95
[2024-05-21 09:21] LABS: Glucometer 99 mg/dL (74-106)
[2024-05-21 10:03] VITALS: BP 131/78; PULSE 83; O2SAT 96
[2024-05-21] MEDS: 0.9 % SODIUM CHLORIDE 10 ML SYRINGE - SALINE FLUSH INJ (10:03)
[2024-05-21] MEDS: IOHEXOL 240 MG/ML - 10 ML VIAL INJ (10:04)
[2024-05-21] MEDS: BUPIVACAINE HCL 0.25% PF 25 MG/10 ML VIAL INJ (10:04)
[2024-05-21] MEDS: TRIAMCINOLONE ACETONIDE 40 MG/ML VIAL 80 MG INJ (10:04)
[2024-05-21] MEDS: LIDOCAINE HCL 2% 400 MG/20 ML MDV 5 ML INJ (10:04)
[2024-05-21 10:06] VITALS: BP 128/76; PULSE 82; O2SAT 97
--- NOTE | 2024-05-21 10:07 | W.PM.PROCNOT ---
Date of procedure: 05/21/24 Pre-op diagnosis: Pain due to lumbar stenosis with neurogenic claudication Post-op diagnosis: same as pre-op Procedure: Procedure: Bilateral L5-S1 transforaminal epidural steroid injection Medications: Bupivacaine 0.25% 2cc, lidocaine 2% 1cc, kenalog 80mg The patient was seen and examined in the preoperative holding area.? Informed consent was obtained and placed on the chart.? Patient was brought to the medical procedure unit and placed in the prone position where a timeout was completed verifying the correct patient, procedure site, position, and planned special equipment using sterile aseptic technique.? Under direct fluoroscopic visualization a 25-gauge Quincke tipped spinal needle was advanced at level left L5-S1 to the designated neural foramen where contrast dye was injected to show adequate spread.? There was no evidence of vascular or adverse uptake.? Epidural spread was appreciated.? The above-mentioned injectate was then placed in a 1.5 mL aliquot preceded by negative aspiration.? The needle was removed. The same procedure, at the same level, was completed on the opposite side. ? Patient was taken to the postprocedural recovery area and monitored for an appropriate length of time before found suitable for discharge in the accompaniment of a responsible adult. Anesthesia: Local Surgeon: Calvin Palmer Pathology: none sent Condition: stable Disposition: no change
== END 2024-05-21 10:18 | disposition home or self-care (01) ==
LOC: SURGOUT 09:04
PROVIDERS: Visit Provider Anesthesiology
DX: M48.062 Spinal stenosis, lumbar region with neurogenic claudication (principal); E11.9 Type 2 diabetes mellitus without complications; Z79.84 Long term (current) use of oral hypoglycemic drugs; Z79.85 Long-term (current) use of injectable non-insulin antidiabetic drugs
CPT/HCPCS: 36415; 64483; 82948; J0665; J3301; Q9966

== ENCOUNTER 2024-07-23 10:41 | Outpatient (OUT) | payer OTHER, SELFPAY ==
--- NOTE | 2024-07-23 11:40 | P.CN_ITS ---
Consult Note: HPI Data of Consult Patient: known to practice within the last 3 years Consult date: 07/23/24 Requesting Physician: Calvin Palmer MD Primary Care Provider: Non-Staff Physician, Consult Narrative Reason for consult: low back, hip pain Narrative: 63yof who presents for assessment. she notes significant relief after recent lumbar tfesi. still notes some symptoms into bilateral hips. continues on gabapentin. cc:: CC: Calvin Palmer MD Review of Systems ROS Status of ROS 10 or more systems reviewed and unremark able except as noted in history and below PFSH PFS Medical History Rheumatoid arthritis ?M06.9 - Rheumatoid arthritis, unspecified (ICD-10) Diabetes ?E11.9 - Type 2 diabetes mellitus without complications (ICD-10) Sleep apnea ?G47.30 - Sleep apnea, unspecified (ICD-10) Asthma ?J45.909 - Unspecified asthma, uncomplicated (ICD-10) CHF (congestive heart failure) ?I50.9 - Heart failure, unspecified (ICD-10) Surgical History History of cataract extraction ?Z98.49 - Cataract extraction status, unspecified eye (ICD-10) History of foot surgery ?Z98.890 - Other specified postprocedural states (ICD-10) History of knee replacement ?Z96.659 - Presence of unspecified artificial knee joint (ICD-10) Meds Home Medications and Allergies Home Medications ?Medication ?Instructions ?Recorded ?Confirmed ?Type aripiprazole 2 mg tablet (Abilify) 2 mg PO DAILY 05/18/23 05/21/24 History cholecalciferol (vitamin D3) 50 50 mcg PO DAILY 05/18/23 05/21/24 History mcg (2,000 unit) capsule (Vitamin D3) empagliflozin 10 mg tablet 10 mg PO DAILY 05/18/23 05/21/24 History (Jardiance) fluoxetine 20 mg capsule 40 mg PO DAILY 05/18/23 05/21/24 History furosemide 40 mg tablet 40 mg PO DAILY 05/18/23 05/21/24 History glipizide 2.5 mg tablet 2.5 mg PO DAILY 05/18/23 05/21/24 History pantoprazole 40 mg tablet,delayed 40 mg PO DAILY 05/18/23 05/21/24 History release potassium chloride 20 mEq 20 meq PO DAILY 05/18/23 05/21/24 History tablet,extended release(part/cryst) (Klor-Con M) rosuvastatin 40 mg tablet 40 mg PO DAILY 05/18/23 05/21/24 History sacubitril 24 mg-valsartan 26 mg 1 tab PO BID 05/18/23 05/21/24 History tablet (Entresto) spironolactone 25 mg tablet 25 mg PO DAILY 05/18/23 05/21/24 History dulaglutide 1.5 mg/0.5 mL 1.5 mg subcut QWEEK 01/26/24 05/21/24 History subcutaneous pen injector (Trulicity) tramadol 50 mg tablet 50 mg PO DAILY 01/26/24 05/21/24 History cyclobenzaprine 10 mg tablet 10 mg PO TID PRN muscle spasm #90 05/10/24 05/21/24 Rx tabs diazepam 10 mg tablet (Valium) 10 mg PO ONCE PRN anxiety #1 tab 05/10/24 05/21/24 Rx gabapentin 300 mg capsule 300 mg PO TID #90 caps 05/10/24 05/21/24 Rx Allergies Allergy/AdvReac Type Severity Reaction Status Date / Time No Known Drug Allergies Allergy Verified 05/21/24 09:19 Exam Narrative Exam Narrative: Psych-alert and oriented x 3. Attentive and appropriate, constitutionally normal, displays normal mood and affect per situation.? There are no obvious deficits in memory, reasoning, or intellect.? Skin-no obvious rashes, bruising, erythema noted to the patient's area of pain. Extremities- extremities are warm with minimal edema and palpable pulses. Lumbar-no significant tenderness to palpation noted in the lumbar spine and paraspinal musculature.? Pain is elicited with extension, and lateral rotation of the lumbar spine. Range of motion is slightly diminished with these motions due to pain. Coordination remains intact.? Gait remains non-antalgic. Assessment and Plan Assessment and Plan (1) Lumbar stenosis with neurogenic claudication: (2) Lumbar spondylosis: Plan 63yof who presents for assessment. i am glad that she had significant relief with her lumbar tfesi. she would like to continue with the gabapentin to help with her persistent hip symptoms. i suspect that many of her symptoms in her hips are a consequence of her severe facet arthropathy in the lower lumbar spine, so she likely would benefit from bilateral l4-5, l5-s1 mbb with possible rfa if symptoms persist. medications reviewed, will continue gabapentin. follow up in 3 months or sooner, if needed.
== END 2024-07-23 10:42 | disposition home or self-care (01) ==
LOC: PM 10:42
PROVIDERS: Visit Provider Anesthesiology
DX: M48.062 Spinal stenosis, lumbar region with neurogenic claudication (principal); M47.816 Spondylosis without myelopathy or radiculopathy, lumbar region
CPT/HCPCS: G0463

== ENCOUNTER 2024-10-17 10:19 | Outpatient (OUT) | payer OTHER, SELFPAY ==
--- NOTE | 2024-10-17 10:43 | PM.CN ---
Consult Note: HPI Data of Consult Patient: known to practice within the last 3 years Requesting Physician: Eda Christianson NP Primary Care Provider: Non-Staff Physician, Consult Narrative Reason for consult: f/u Narrative: Carmen Casiano a 63 year old female presents for evaluation and management of chronic low back pain and bilateral leg pain. hx of lumbar stenosis, lumbar ddd, and lumbar spondylosis per prior lumbar MRI and xray. pt has failed to benefit from > 6 weeks of PT and provider guided HEP, heat, ice, tylenol, and ibuprofen. pain today 8/10 increasing to 10/10 with standing and walking. pain improves with sitting and forward flexion. previously underwent bilateral L5-S1 TFESI with >50% improvement for 3 months and would like to discuss repeating. cc:: CC: Eda Christianson NP Review of Systems ROS Status of ROS 10 or more systems reviewed and unremarkable except as noted in history and below Musculoskeletal Reports: back pain and extremity pain PFSH PFSH Medical History Rheumatoid arthritis ?M06.9 - Rheumatoid arthritis, unspecified (ICD-10) Diabetes ?E11.9 - Type 2 diabetes mellitus without complications (ICD-10) Sleep apnea ?G47.30 - Sleep apnea, unspecified (ICD-10) Asthma ?J45.909 - Unspecified asthma, uncomplicated (ICD-10) CHF (congestive heart failure) ?I50.9 - Heart failure, unspecified (ICD-10) Surgical History History of cataract extraction ?Z98.49 - Cataract extraction status, unspecified eye (ICD-10) History of foot surgery ?Z98.890 - Other specified postprocedural states (ICD-10) History of knee replacement ?Z96.659 - Presence of unspecified artificial knee joint (ICD-10) Meds Home Medications and Allergies Home Medications ?Medication ?Instructions ?Recorded ?Confirmed ?Type aripiprazole 2 mg tablet (Abilify) 2 mg PO DAILY 05/18/23 05/21/24 History cholecalciferol (vitamin D3) 50 50 mcg PO DAILY 05/18/23 05/21/24 History mcg (2,000 unit) capsule (Vitamin D3) empagliflozin 10 mg tablet 10 mg PO DAILY 05/18/23 05/21/24 History (Jardiance) fluoxetine 20 mg capsule 40 mg PO DAILY 05/18/23 05/21/24 History furosemide 40 mg tablet 40 mg PO DAILY 05/18/23 05/21/24 History glipizide 2.5 mg tablet 2.5 mg PO DAILY 05/18/23 05/21/24 History pantoprazole 40 mg tablet,delayed 40 mg PO DAILY 05/18/23 05/21/24 History release potassium chloride 20 mEq 20 meq PO DAILY 05/18/23 05/21/24 History tablet,extended release(part/cryst) (Klor-Con M) rosuvastatin 40 mg tablet 40 mg PO DAILY 05/18/23 05/21/24 History sacubitril 24 mg-valsartan 26 mg 1 tab PO BID 05/18/23 05/21/24 History tablet (Entresto) spironolactone 25 mg tablet 25 mg PO DAILY 05/18/23 05/21/24 History dulaglutide 1.5 mg/0.5 mL 1.5 mg subcut QWEEK 01/26/24 05/21/24 History subcutaneous pen injector (Trulicity) cyclobenzaprine 10 mg tablet 10 mg PO TID PRN muscle spasm #90 05/10/24 05/21/24 Rx tabs gabapentin 300 mg capsule 300 mg PO TID #90 caps 05/10/24 05/21/24 Rx gabapentin 300 mg capsule 300 mg PO TID #90 caps 07/23/24 Rx Allergies Allergy/AdvReac Type Severity Reaction Status Date / Time No Known Drug Allergies Allergy Verified 05/21/24 09:19 Exam Constitutional Documenting provider has reviewed patient's vital signs: yes Common normals: no apparent distress, oriented x3, healthy appearing, alert and well nourished General appearance: cooperative [facility] Common normals: normocephalic, hearing grossly normal bilaterally and moist oral mucous membranes Head and scalp: normocephalic Eye Common normals: PERRL Pupil: PERRL Neck & C-Spine Common normals: full ROM General: normal visual inspection Chest Common normals: inspection of chest normal Respiratory Common normals: normal respiratory effort, no retractions and no use of accessory muscles Back & Pelvis Lumbar spine/lower back: ROM limited, pain with ROM and straight leg raise negative bilaterally Other: decreased sensation bilateral L5/S1 strength 4/5 in BLE Neuro Common normals: oriented x3 Sensorium/orientation: alert Psych Common normals: mental status grossly normal, thought process normal, cooperative, affect normal, speech normal and activity/motor behavior normal Speech: normal speech Thought process: normal thought process Results Additional Findings Additional findings: If on a controlled substance or opioids, I have checked an [place] report on this patient and there are no aberrancies noted in the prescribing history.??If on a controlled substance or opioid a drug screen was completed and reviewed within the last year, and if there has not been a drug screen completed we ordered one today to monitor higher risk, state monitored pain medication use. As part of providing excellent, safe, comprehensive care, the following was completed at our patient's visit: 1. A medication reconciliation and review to ensure accurate knowledge of current/active medications, including asking our patients to inform us about any [id number] medications or herbal remedies/nutritional supplements/alternative remedies. 2. A review to specifically ensure our patients have had annual screening for screening for depression, screening for tobacco use, and screening for unhealthy alcohol use. For concerning screenings had a discussion with the patient, provided patient education, and recommended follow-up with primary care provider when appropriate. If patient noted with a risk of falling, they received education on strength, gait, and balance training to prevent future risk of falling. Portions of this note may have been carried over from the previous visit and updated as appropriate. Please note this office utilizes paper charting in addition to the electronic medical record. A list of current medications, vitals, and PMH is available there as the clinical staff outside of myself do not have access to [employer] charting during the clinic day operations. As part of providing quality comprehensive care the current medications, vitals, and PMH were reviewed in the paper chart. Assessment and Plan Assessment and Plan (1) Lumbar stenosis with neurogenic claudication: (2) Lumbar spondylosis: (3) Lumbar degenerative disc disease: Plan The patient has had over 3 months of moderate to severe low back and BLE pain with functional impairment and inadequate response to conservative care including NSAIDS (unless there are contraindication such as concurrent blood thinners), multiple oral or topical pain medications, and home exercise program/physical therapy.? Patient has completed >6 weeks of guided home exercise program and/or formal physical therapy program without relief of their symptoms.? I have reviewed the imaging of the lumbar spine and no red flags were identified.? The Oswestry Disability Index was completed, and the patient scored a 60%.?previously 16% The patient noted the following:?? moderate to severe pain with standing, walking, lifting, pain impacting sleep, social life, and travel We discussed the risks and benefits of the procedure with the patient, and we are NOT planning on using sedation as outlined in the guidelines from Medicare unless there is a documented reason that sedation would be strongly recommended.?? ?The procedure will be completed with fluoroscopic guidance.? repeat bilateral L5-S1 TFESI under fluoroscopy, previous injection provided >50% improvement greater than 3 months dc ibuprofen, start meloxicam 7.5mg BID PRN pain. take with food. risks vs benefits reviewed continue flexeril 10mg HS PRN pain/spasms continue HEP as tolerated f/u 2 weeks after injection, consider lumbar MBBs for axial facet mediated low back pain
== END 2024-10-17 10:20 | disposition home or self-care (01) ==
LOC: PM 10:19
PROVIDERS: Visit Provider Nurse Practitioner
DX: M48.062 Spinal stenosis, lumbar region with neurogenic claudication (principal); M47.816 Spondylosis without myelopathy or radiculopathy, lumbar region; M51.369 Other intervertebral disc degeneration, lumbar region without mention of lumbar back pain or lower extremity pain
CPT/HCPCS: G0463

== ENCOUNTER 2024-10-29 09:08 | Day surgery (SDC) | payer OTHER, SELFPAY ==
[2024-10-29 09:59] LABS: Glucometer 99 mg/dL (74-106)
[2024-10-29 10:02] VITALS: BP 133/74; PULSE 91; TEMP 36.2; O2SAT 97
[2024-10-29 10:18] VITALS: BP 132/79; PULSE 91; O2SAT 98
[2024-10-29 10:19] VITALS: BP 146/87; PULSE 84; O2SAT 95
[2024-10-29] MEDS: IOHEXOL 240 MG/ML - 10 ML VIAL 24 MG INJ (10:20)
[2024-10-29] MEDS: BUPIVACAINE HCL 0.25% PF 25 MG/10 ML VIAL INJ (10:20)
[2024-10-29] MEDS: 0.9 % SODIUM CHLORIDE 10 ML SYRINGE - SALINE FLUSH INJ (10:20)
[2024-10-29] MEDS: LIDOCAINE HCL 2% 400 MG/20 ML MDV 3 ML INJ (10:21)
[2024-10-29] MEDS: METHYLPREDNISOLONE ACETATE 80 MG/ML VIAL INJ (10:21)
--- NOTE | 2024-10-29 10:24 | W.PM.PROCNOT ---
Date of procedure: 10/29/24 Pre-op diagnosis: Pain due to lumbar stenosis with neurogenic claudication Post-op diagnosis: same as pre-op Procedure: Procedure: Bilateral L5-S1 transforaminal epidural steroid injection Medications: Bupivacaine 0.25% 2cc, lidocaine 2% 1cc, depomedrol 80mg The patient was seen and examined in the preoperative holding area.? Informed consent was obtained and placed on the chart.? Patient was brought to the medical procedure unit and placed in the prone position where a timeout was completed verifying the correct patient, procedure site, position, and planned special equipment using sterile aseptic technique.? Under direct fluoroscopic visualization a 25-gauge Quincke tipped spinal needle was advanced at level left L5-S1 to the designated neural foramen where contrast dye was injected to show adequate spread.? There was no evidence of vascular or adverse uptake.? Epidural spread was appreciated.? The above-mentioned injectate was then placed in a 1.5 mL aliquot preceded by negative aspiration.? The needle was removed. The same procedure, at the same level, was completed on the opposite side. ? Patient was taken to the postprocedural recovery area and monitored for an appropriate length of time before found suitable for discharge in the accompaniment of a responsible adult. Anesthesia: Local Surgeon: Calvin Palmer Pathology: none sent Condition: stable Disposition: no change
== END 2024-10-29 10:27 | disposition home or self-care (01) ==
LOC: SURGOUT 09:10
PROVIDERS: Visit Provider Anesthesiology
DX: M48.062 Spinal stenosis, lumbar region with neurogenic claudication (principal); M54.50 Low back pain, unspecified; E11.8 Type 2 diabetes mellitus with unspecified complications; Z79.85 Long-term (current) use of injectable non-insulin antidiabetic drugs; Z79.84 Long term (current) use of oral hypoglycemic drugs
CPT/HCPCS: 36415; 64483; 82948; J0665; J1010; Q9966

== ENCOUNTER 2024-11-15 12:52 | Outpatient (OUT) | payer OTHER, SELFPAY ==
--- NOTE | 2024-11-15 13:06 | PM.CN ---
Consult Note: HPI Data of Consult Patient: known to practice within the last 3 years Requesting Physician: Eda Christianson NP Primary Care Provider: Non-Staff Physician, Consult Narrative Reason for consult: f/u Narrative: Carmen Casiano a 64 year old female presents for evaluation and management of chronic low back pain and bilateral leg pain. hx of lumbar stenosis, lumbar ddd, and lumbar spondylosis per prior lumbar MRI and xray. pt has failed to benefit from > 6 weeks of PT and provider guided HEP, heat, ice, tylenol, and ibuprofen. pain today 0/10 increasing to 0/10. recently underwent bilateral L5/S1 TFESI with >80% improvement ongoing cc:: CC: Eda Christianson NP Review of Systems ROS Status of ROS 10 or more systems reviewed and unremarkable except as noted in history and below Musculoskeletal Reports: back pain and extremity pain PFSH PFSH Medical History Rheumatoid arthritis ?M06.9 - Rheumatoid arthritis, unspecified (ICD-10) Diabetes ?E11.9 - Type 2 diabetes mellitus without complications (ICD-10) Sleep apnea ?G47.30 - Sleep apnea, unspecified (ICD-10) Asthma ?J45.909 - Unspecified asthma, uncomplicated (ICD-10) CHF (congestive heart failure) ?I50.9 - Heart failure, unspecified (ICD-10) Surgical History History of cataract extraction ?Z98.49 - Cataract extraction status, unspecified eye (ICD-10) History of foot surgery ?Z98.890 - Other specified postprocedural states (ICD-10) History of knee replacement ?Z96.659 - Presence of unspecified artificial knee joint (ICD-10) Meds Home Medications and Allergies Home Medications ?Medication ?Instructions ?Recorded ?Confirmed ?Type aripiprazole 2 mg tablet (Abilify) 2 mg PO DAILY 05/18/23 10/29/24 History cholecalciferol (vitamin D3) 50 50 mcg PO DAILY 05/18/23 10/29/24 History mcg (2,000 unit) capsule (Vitamin D3) empagliflozin 10 mg tablet 10 mg PO DAILY 05/18/23 10/29/24 History (Jardiance) fluoxetine 20 mg capsule 40 mg PO DAILY 05/18/23 10/29/24 History furosemide 40 mg tablet 40 mg PO DAILY 05/18/23 10/29/24 History glipizide 2.5 mg tablet 2.5 mg PO DAILY 05/18/23 10/29/24 History pantoprazole 40 mg tablet,delayed 40 mg PO DAILY 05/18/23 10/29/24 History release potassium chloride 20 mEq 20 meq PO DAILY 05/18/23 10/29/24 History tablet,extended release(part/cryst) (Klor-Con M) rosuvastatin 40 mg tablet 40 mg PO DAILY 05/18/23 10/29/24 History sacubitril 24 mg-valsartan 26 mg 1 tab PO BID 05/18/23 10/29/24 History tablet (Entresto) spironolactone 25 mg tablet 25 mg PO DAILY 05/18/23 10/29/24 History dulaglutide 1.5 mg/0.5 mL 1.5 mg subcut QWEEK 01/26/24 10/29/24 History subcutaneous pen injector (Trulicity) cyclobenzaprine 10 mg tablet 10 mg PO TID PRN muscle spasm #90 05/10/24 10/29/24 Rx tabs gabapentin 300 mg capsule 300 mg PO TID #90 caps 05/10/24 10/29/24 Rx gabapentin 300 mg capsule 300 mg PO TID #90 caps 07/23/24 10/29/24 Rx meloxicam 7.5 mg tablet 7.5 mg PO BID 10/17/24 10/29/24 History gabapentin 300 mg capsule 300 mg PO TID #90 caps 10/25/24 10/29/24 Rx Allergies Allergy/AdvReac Type Severity Reaction Status Date / Time No Known Drug Allergies Allergy Verified 10/29/24 10:01 Exam Constitutional Documenting provider has reviewed patient's vital signs: yes Common normals: no apparent distress, oriented x3, healthy appearing, alert and well nourished General appearance: cooperative [facility] Common normals: normocephalic, hearing grossly normal bilaterally and moist oral mucous membranes Head and scalp: normocephalic Eye Common normals: PERRL Pupil: PERRL Neck & C-Spine Common normals: full ROM General: normal visual inspection Chest Common normals: inspection of chest normal Respiratory Common normals: normal respiratory effort, no retractions and no use of accessory muscles Back & Pelvis Lumbar spine/lower back: straight leg raise negative bilaterally; ROM not limited, no pain with ROM and no lumbar spinal tenderness Other: sensation intact BLE strength 5/5 in BLE Neuro Common normals: oriented x3 Sensorium/orientation: alert Psych Common normals: mental status grossly normal, thought process normal, cooperative, affect normal, speech normal and activity/motor behavior normal Speech: normal speech Thought process: normal thought process Results Additional Findings Additional findings: If on a controlled substance or opioids, I have checked an [place] report on this patient and there are no aberrancies noted in the prescribing history.??If on a controlled substance or opioid a drug screen was completed and reviewed within the last year, and if there has not been a drug screen completed we ordered one today to monitor higher risk, state monitored pain medication use. As part of providing excellent, safe, comprehensive care, the following was completed at our patient's visit: 1. A medication reconciliation and review to ensure accurate knowledge of current/active medications, including asking our patients to inform us about any [id number] medications or herbal remedies/nutritional supplements/alternative remedies. 2. A review to specifically ensure our patients have had annual screening for screening for depression, screening for tobacco use, and screening for unhealthy alcohol use. For concerning screenings had a discussion with the patient, provided patient education, and recommended follow-up with primary care provider when appropriate. If patient noted with a risk of falling, they received education on strength, gait, and balance training to prevent future risk of falling. Portions of this note may have been carried over from the previous visit and updated as appropriate. Please note this office utilizes paper charting in addition to the electronic medical record. A list of current medications, vitals, and PMH is available there as the clinical staff outside of myself do not have access to [employer] charting during the clinic day operations. As part of providing quality comprehensive care the current medications, vitals, and PMH were reviewed in the paper chart. Assessment and Plan Assessment and Plan (1) Lumbar stenosis with neurogenic claudication: (2) Lumbar spondylosis: (3) Lumbar degenerative disc disease: Plan repeat bilateral L5-S1 TFESI providing significant improvement ongoing continue meloxicam 7.5mg BID PRN pain. take with food. risks vs benefits reviewed continue flexeril 10mg HS PRN pain/spasms continue HEP as tolerated f/u 3 months, sooner if needed
== END 2024-11-15 12:53 | disposition home or self-care (01) ==
LOC: PM 12:52
PROVIDERS: Visit Provider Nurse Practitioner
DX: M48.062 Spinal stenosis, lumbar region with neurogenic claudication (principal); M47.816 Spondylosis without myelopathy or radiculopathy, lumbar region; M51.369 Other intervertebral disc degeneration, lumbar region without mention of lumbar back pain or lower extremity pain
CPT/HCPCS: G0463

== ENCOUNTER 2025-01-03 12:44 | Outpatient (OUT) | payer OTHER, SELFPAY ==
--- NOTE | 2025-01-03 13:09 | PM.CN ---
Consult Note: HPI Data of Consult Patient: known to practice within the last 3 years Consult date: 01/03/25 Requesting Physician: Eda Christianson NP Primary Care Provider: Non-Staff Physician, Consult Narrative Reason for consult: f/u Narrative: Carmen Casiano a 64 year old female presents for evaluation and management of chronic low back pain. hx of lumbar stenosis, lumbar ddd, and lumbar spondylosis per prior lumbar MRI and xray. pt has failed to benefit from > 6 weeks of PT and provider guided HEP, heat, ice, tylenol, and ibuprofen. pain today 8/10 throbbing in right hip and low back, increasing to 10/10 with standing, walking, activity. denies numbness, tingling, weakness to LE. has not been utilizing flexeril or mobic, utilizing gabapentin 300mg TID with mild relief. cc:: CC: Eda Christianson NP Review of Systems ROS Status of ROS 10 or more systems reviewed and unremarkable except as noted in history and below Musculoskeletal Reports: back pain and extremity pain PFSH PFSH Medical History Rheumatoid arthritis �M06.9 - Rheumatoid arthritis, unspecified (ICD-10) Diabetes �E11.9 - Type 2 diabetes mellitus without complications (ICD-10) Sleep apnea �G47.30 - Sleep apnea, unspecified (ICD-10) Asthma �J45.909 - Unspecified asthma, uncomplicated (ICD-10) CHF (congestive heart failure) �I50.9 - Heart failure, unspecified (ICD-10) Surgical History History of cataract extraction �Z98.49 - Cataract extraction status, unspecified eye (ICD-10) History of foot surgery �Z98.890 - Other specified postprocedural states (ICD-10) History of knee replacement �Z96.659 - Presence of unspecified artificial knee joint (ICD-10) Meds Home Medications and Allergies Home Medications �Medication �Instructions �Recorded �Confirmed �Type aripiprazole 2 mg tablet (Abilify) 2 mg PO DAILY 05/18/23 10/29/24 History cholecalciferol (vitamin D3) 50 50 mcg PO DAILY 05/18/23 10/29/24 History mcg (2,000 unit) capsule (Vitamin D3) empagliflozin 10 mg tablet 10 mg PO DAILY 05/18/23 10/29/24 History (Jardiance) fluoxetine 20 mg capsule 40 mg PO DAILY 05/18/23 10/29/24 History furosemide 40 mg tablet 40 mg PO DAILY 05/18/23 10/29/24 History glipizide 2.5 mg tablet 2.5 mg PO DAILY 05/18/23 10/29/24 History pantoprazole 40 mg tablet,delayed 40 mg PO DAILY 05/18/23 10/29/24 History release potassium chloride 20 mEq 20 meq PO DAILY 05/18/23 10/29/24 History tablet,extended release(part/cryst) (Klor-Con M) rosuvastatin 40 mg tablet 40 mg PO DAILY 05/18/23 10/29/24 History sacubitril 24 mg-valsartan 26 mg 1 tab PO BID 05/18/23 10/29/24 History tablet (Entresto) spironolactone 25 mg tablet 25 mg PO DAILY 05/18/23 10/29/24 History dulaglutide 1.5 mg/0.5 mL 1.5 mg subcut QWEEK 01/26/24 10/29/24 History subcutaneous pen injector (Trulicity) cyclobenzaprine 10 mg tablet 10 mg PO TID PRN muscle spasm #90 05/10/24 10/29/24 Rx tabs gabapentin 300 mg capsule 300 mg PO TID #90 caps 05/10/24 10/29/24 Rx gabapentin 300 mg capsule 300 mg PO TID #90 caps 07/23/24 10/29/24 Rx meloxicam 7.5 mg tablet 7.5 mg PO BID 10/17/24 10/29/24 History gabapentin 300 mg capsule 300 mg PO TID #90 caps 10/25/24 10/29/24 Rx Allergies Allergy/AdvReac Type Severity Reaction Status Date / Time No Known Drug Allergies Allergy Verified 10/29/24 10:01 Exam Constitutional Documenting provider has reviewed patient's vital signs: yes Common normals: no apparent distress, oriented x3, healthy appearing, alert and well nourished General appearance: cooperative HENVT Common normals: normocephalic, hearing grossly normal bilaterally and moist oral mucous membranes Head and scalp: normocephalic Eye Common normals: PERRL Pupil: PERRL Neck & C-Spine Common normals: full ROM General: normal visual inspection Chest Common normals: inspection of chest normal Respiratory Common normals: normal respiratory effort, no retractions and no use of accessory muscles Back & Pelvis Lumbar spine/lower back: ROM limited, pain with ROM and straight leg raise negative bilaterally; no lumbar spinal tenderness Sacroiliac joints: SI joint(s) abnormal Other: sensation intact BLE strength 5/5 in BLE right sij positive aliyah(patricks), gaenslens, thigh thrust, compression test Neuro Common normals: oriented x3 Sensorium/orientation: alert Psych Common normals: mental status grossly normal, thought process normal, cooperative, affect normal, speech normal and activity/motor behavior normal Speech: normal speech Thought process: normal thought process Results Additional Findings Additional findings: If on a controlled substance or opioids, I have checked an [place] report on this patient and there are no aberrancies noted in the prescribing history.��If on a controlled substance or opioid a drug screen was completed and reviewed within the last year, and if there has not been a drug screen completed we ordered one today to monitor higher risk, state monitored pain medication use. As part of providing excellent, safe, comprehensive care, the following was completed at our patient's visit: 1. A medication reconciliation and review to ensure accurate knowledge of current/active medications, including asking our patients to inform us about any [id number] medications or herbal remedies/nutritional supplements/alternative remedies. 2. A review to specifically ensure our patients have had annual screening for screening for depression, screening for tobacco use, and screening for unhealthy alcohol use. For concerning screenings had a discussion with the patient, provided patient education, and recommended follow-up with primary care provider when appropriate. If patient noted with a risk of falling, they received education on strength, gait, and balance training to prevent future risk of falling. Portions of this note may have been carried over from the previous visit and updated as appropriate. Please note this office utilizes paper charting in addition to the electronic medical record. A list of current medications, vitals, and PMH is available there as the clinical staff outside of myself do not have access to [employer] charting during the clinic day operations. As part of providing quality comprehensive care the current medications, vitals, and PMH were reviewed in the paper chart. Assessment and Plan Assessment and Plan (1) Sacroiliitis: Assessment and Plan: The patient has had over 3 months of moderate to severe low back and right SIJ pain with functional impairment and inadequate response to conservative care including NSAIDS (unless there are contraindication such as concurrent blood thinners), multiple oral or topical pain medications, and home exercise program/physical therapy.� Patient has completed >6 weeks of guided home exercise program and/or formal physical therapy program without relief of their symptoms.� The Oswestry Disability Index was completed, and the patient scored a 54%.� The patient noted the following:�� moderate to severe pain impacting ADLs, sitting, standing, walking, sleeping, social life, travel We discussed the risks and benefits of the procedure with the patient, and we are NOT planning on using sedation as outlined in the guidelines from Medicare unless there is a documented reason that sedation would be strongly recommended.�� �The procedure will be completed with fluoroscopic guidance.� (2) Lumbar stenosis with neurogenic claudication: (3) Lumbar spondylosis: (4) Lumbar degenerative disc disease: Plan right SIJ injection under fluoroscopy restart meloxicam 7.5mg BID PRN pain. take with food. risks vs benefits reviewed restart flexeril 10mg TID PRN pain/spasms continue HEP as tolerated f/u 2 weeks after injection
== END 2025-01-03 12:45 | disposition home or self-care (01) ==
LOC: PM 12:44
PROVIDERS: Visit Provider Nurse Practitioner
DX: M46.1 Sacroiliitis, not elsewhere classified (principal); M48.062 Spinal stenosis, lumbar region with neurogenic claudication; M47.816 Spondylosis without myelopathy or radiculopathy, lumbar region; M51.369 Other intervertebral disc degeneration, lumbar region without mention of lumbar back pain or lower extremity pain
CPT/HCPCS: G0463

== ENCOUNTER 2025-01-21 07:59 | Day surgery (SDC) | payer OTHER, SELFPAY ==
[2025-01-21 08:29] VITALS: BP 145/92; PULSE 75; TEMP 36.5; O2SAT 93
[2025-01-21 09:16] VITALS: BP 124/76; PULSE 82; O2SAT 90
[2025-01-21] MEDS: IOHEXOL 240 MG/ML - 10 ML VIAL 24 MG INJ (09:17)
[2025-01-21] MEDS: BUPIVACAINE HCL 0.25% PF 25 MG/10 ML VIAL 2 ML INJ (09:17)
[2025-01-21] MEDS: LIDOCAINE HCL 2% 400 MG/20 ML MDV INJ (09:18)
[2025-01-21] MEDS: METHYLPREDNISOLONE ACETATE 40 MG/ML VIAL INJ (09:18)
[2025-01-21 09:19] VITALS: BP 144/80; PULSE 79; O2SAT 92
--- NOTE | 2025-01-21 09:21 | W.PM.PROCNOT ---
Date of procedure: 01/21/25 Pre-op diagnosis: Pain due to bilateral sacroiliitis Post-op diagnosis: same as pre-op Procedure: Procedure: Bilateral sacroiliac joint injection Medications: Bupivacaine 0.25% 3cc, depomedrol 40mg x2 After informed consent was obtained, the patient was brought to the medical procedure unit and placed in the prone position, when a timeout was completed verifying correct patient, procedure, site, positioning, implant, and/or special equipment.? The skin overlying the area was prepped and draped in standard sterile fashion using alcohol.? A 25-gauge needle was inserted towards the left sacroiliac joint under direct fluoroscopic imaging.? Needle tip was advanced until the joint was encountered.? We instilled a total of 2 mL of solution.? The same procedure was then completed on the right side.? Postoperatively needles were removed.? The patient tolerated the procedure well without complication.? The patient reported reduction in pain symptoms postoperatively. Anesthesia: Local Surgeon: Calvin Palmer Pathology: none sent Condition: stable Disposition: no change
== END 2025-01-21 09:25 | disposition home or self-care (01) ==
PROVIDERS: Visit Provider Anesthesiology
DX: M46.1 Sacroiliitis, not elsewhere classified (principal)
CPT/HCPCS: 27096; 36415; 82948; J0665; J1010; Q9966

== ENCOUNTER 2025-01-30 13:02 | Outpatient (OUT) | payer OTHER, SELFPAY ==
--- NOTE | 2025-01-30 14:09 | PM.CN ---
Consult Note: HPI Data of Consult Patient: known to practice within the last 3 years Consult date: 01/03/25 Requesting Physician: Eda Christianson NP Primary Care Provider: Non-Staff Physician, Consult Narrative Reason for consult: f/u Narrative: Carmen Casiano a 64 year old female presents for evaluation and management of chronic low back pain. hx of lumbar stenosis, lumbar ddd, and lumbar spondylosis per prior lumbar MRI and xray. pt has failed to benefit from > 6 weeks of PT and provider guided HEP, heat, ice, tylenol, and ibuprofen. pain today 10/10 in left thigh and hip with standing, walking, activity. denies numbness, tingling, weakness to LE. has not been utilizing flexeril or mobic, utilizing gabapentin 300mg TID with mild relief. notes significant relief on the right low back from bilateral SIJ injection, no improvement on the left. pt falling frequently. recent er visit due to fall/pain. cc:: CC: Eda Christianson NP Review of Systems ROS Status of ROS 10 or more systems reviewed and unremarkable except as noted in history and below Musculoskeletal Reports: back pain and extremity pain PFSH PFSH Medical History Rheumatoid arthritis ?M06.9 - Rheumatoid arthritis, unspecified (ICD-10) Diabetes ?E11.9 - Type 2 diabetes mellitus without complications (ICD-10) Sleep apnea ?G47.30 - Sleep apnea, unspecified (ICD-10) Asthma ?J45.909 - Unspecified asthma, uncomplicated (ICD-10) CHF (congestive heart failure) ?I50.9 - Heart failure, unspecified (ICD-10) Surgical History History of cataract extraction ?Z98.49 - Cataract extraction status, unspecified eye (ICD-10) History of foot surgery ?Z98.890 - Other specified postprocedural states (ICD-10) History of knee replacement ?Z96.659 - Presence of unspecified artificial knee joint (ICD-10) Meds Home Medications and Allergies Home Medications ?Medication ?Instructions ?Recorded ?Confirmed ?Type aripiprazole 2 mg tablet (Abilify) 2 mg PO DAILY 05/18/23 01/21/25 History cholecalciferol (vitamin D3) 50 50 mcg PO DAILY 05/18/23 01/21/25 History mcg (2,000 unit) capsule (Vitamin D3) empagliflozin 10 mg tablet 10 mg PO DAILY 05/18/23 01/21/25 History (Jardiance) fluoxetine 20 mg capsule 40 mg PO DAILY 05/18/23 01/21/25 History furosemide 40 mg tablet 40 mg PO DAILY 05/18/23 01/21/25 History glipizide 2.5 mg tablet 2.5 mg PO DAILY 05/18/23 01/21/25 History pantoprazole 40 mg tablet,delayed 40 mg PO DAILY 05/18/23 01/21/25 History release potassium chloride 20 mEq 20 meq PO DAILY 05/18/23 01/21/25 History tablet,extended release(part/cryst) (Klor-Con M) rosuvastatin 40 mg tablet 40 mg PO DAILY 05/18/23 01/21/25 History sacubitril 24 mg-valsartan 26 mg 1 tab PO BID 05/18/23 01/21/25 History tablet (Entresto) spironolactone 25 mg tablet 25 mg PO DAILY 05/18/23 01/21/25 History dulaglutide 1.5 mg/0.5 mL 1.5 mg subcut QWEEK 01/26/24 01/21/25 History subcutaneous pen injector (Trulicity) cyclobenzaprine 10 mg tablet 10 mg PO TID PRN muscle spasm #90 05/10/24 01/21/25 Rx tabs gabapentin 300 mg capsule 300 mg PO TID #90 caps 05/10/24 01/21/25 Rx gabapentin 300 mg capsule 300 mg PO TID #90 caps 07/23/24 01/21/25 Rx meloxicam 7.5 mg tablet 7.5 mg PO BID 10/17/24 01/21/25 History gabapentin 300 mg capsule 300 mg PO TID #90 caps 10/25/24 01/21/25 Rx Allergies Allergy/AdvReac Type Severity Reaction Status Date / Time No Known Drug Allergies Allergy Verified 01/21/25 08:39 Exam Constitutional Documenting provider has reviewed patient's vital signs: yes Common normals: no apparent distress, oriented x3, healthy appearing, alert and well nourished General appearance: cooperative HENMT Common normals: normocephalic, hearing grossly normal bilaterally and moist oral mucous membranes Head and scalp: normocephalic Eye Common normals: PERRL Pupil: PERRL Neck & C-Spine Common normals: full ROM General: normal visual inspection Chest Common normals: inspection of chest normal Respiratory Common normals: normal respiratory effort, no retractions and no use of accessory muscles Back & Pelvis Lumbar spine/lower back: ROM limited, pain with ROM and straight leg raise positive left; no lumbar spinal tenderness Sacroiliac joints: SI joint(s) abnormal Other: decreased sensation left L4/5 l5/s1 strength 4/5 in RLE and 5/5 in LLE left sij positive aliyah(patricks), gaenslens, thigh thrust, compression test Neuro Common normals: oriented x3 Sensorium/orientation: alert Gait (neuro): assistive device used walker Psych Common normals: mental status grossly normal, thought process normal, cooperative, affect normal, speech normal and activity/motor behavior normal Speech: normal speech Thought process: normal thought process Results Additional Findings Additional findings: If on a controlled substance or opioids, I have checked an [place] report on this patient and there are no aberrancies noted in the prescribing history.??If on a controlled substance or opioid a drug screen was completed and reviewed within the last year, and if there has not been a drug screen completed we ordered one today to monitor higher risk, state monitored pain medication use. As part of providing excellent, safe, comprehensive care, the following was completed at our patient's visit: 1. A medication reconciliation and review to ensure accurate knowledge of current/active medications, including asking our patients to inform us about any uatk-ttu-vsqzurp medications or herbal remedies/nutritional supplements/alternative remedies. 2. A review to specifically ensure our patients have had annual screening for screening for depression, screening for tobacco use, and screening for unhealthy alcohol use. For concerning screenings had a discussion with the patient, provided patient education, and recommended follow-up with primary care provider when appropriate. If patient noted with a risk of falling, they received education on strength, gait, and balance training to prevent future risk of falling. Portions of this note may have been carried over from the previous visit and updated as appropriate. Please note this office utilizes paper charting in addition to the electronic medical record. A list of current medications, vitals, and PMH is available there as the clinical staff outside of myself do not have access to [employer] charting during the clinic day operations. As part of providing quality comprehensive care the current medications, vitals, and PMH were reviewed in the paper chart. Assessment and Plan Assessment and Plan (1) Sacroiliitis: (2) Lumbar stenosis with neurogenic claudication: Assessment and Plan: The patient has had over 3 months of moderate to severe low back and right SIJ pain with functional impairment and inadequate response to conservative care including NSAIDS (unless there are contraindication such as concurrent blood thinners), multiple oral or topical pain medications, and home exercise program/physical therapy.? Patient has completed >6 weeks of guided home exercise program and/or formal physical therapy program without relief of their symptoms.? The Oswestry Disability Index was completed, and the patient scored a 68%.? The patient noted the following:?? moderate to severe pain impacting ADLs, sitting, standing, walking, sleeping, social life, travel We discussed the risks and benefits of the procedure with the patient, and we are NOT planning on using sedation as outlined in the guidelines from Medicare unless there is a documented reason that sedation would be strongly recommended.?? ?The procedure will be completed with fluoroscopic guidance.? (3) Lumbar spondylosis: (4) Lumbar degenerative disc disease: Plan left L4-5 L5-S1 TFESI under fluoroscopy increase gabapentin 400mg BID continue HEP as tolerated continue flexeril 10mg tid prn pain spasms continue mobic 7.5mg bid prn pain f/u 2 weeks after injection. pt interested in scs if fails RONEL as previously discussed with Dr Palmer per pt
== END 2025-01-30 13:03 | disposition home or self-care (01) ==
LOC: PM 13:03
PROVIDERS: Visit Provider Nurse Practitioner
DX: M46.1 Sacroiliitis, not elsewhere classified (principal); M48.062 Spinal stenosis, lumbar region with neurogenic claudication; M47.816 Spondylosis without myelopathy or radiculopathy, lumbar region; M51.369 Other intervertebral disc degeneration, lumbar region without mention of lumbar back pain or lower extremity pain
CPT/HCPCS: G0463

== ENCOUNTER 2025-02-11 11:43 | Day surgery (SDC) | payer OTHER, SELFPAY ==
[2025-02-11 11:48] VITALS: BP 148/87; PULSE 82; TEMP 36.3; O2SAT 98
[2025-02-11 12:28] VITALS: BP 137/85; PULSE 82; O2SAT 96
[2025-02-11 12:30] VITALS: BP 159/110
[2025-02-11] MEDS: 0.9 % SODIUM CHLORIDE 10 ML SYRINGE - SALINE FLUSH INJ (12:30)
[2025-02-11] MEDS: LIDOCAINE HCL 2% 400 MG/20 ML MDV INJ (12:31)
[2025-02-11] MEDS: IOHEXOL 240 MG/ML - 10 ML VIAL INJ (12:31)
[2025-02-11] MEDS: BUPIVACAINE HCL 0.25% PF 25 MG/10 ML VIAL INJ (12:31)
[2025-02-11 12:32] VITALS: PULSE 73; O2SAT 94
[2025-02-11] MEDS: METHYLPREDNISOLONE ACETATE 80 MG/ML VIAL INJ (12:32)
--- NOTE | 2025-02-11 12:37 | P.ON_ITS ---
Date of procedure: 02/11/25 Pre-op diagnosis: Pain due to lumbar stenosis with neurogenic claudication Post-op diagnosis: same as pre-op Procedure: Procedure: Left L4-5, L5-S1 transforaminal epidural steroid injection Medications: Bupivacaine 0.25% 2cc, lidocaine 2% 1cc, depomedrol 80mg The patient was seen and examined in the preoperative holding area.? Informed consent was obtained and placed on the chart.? Patient was brought to the medical procedure unit and placed in the prone position where a timeout was completed verifying the correct patient, procedure site, position, and planned special equipment using sterile aseptic technique.? Under direct fluoroscopic visualization a 25-gauge Quincke tipped spinal needle was advanced to the designated neural foramen where contrast dye was injected to show adequate spread.? The needle was inserted at level left L4-5. There was no evidence of vascular or adverse uptake.? Epidural spread was appreciated.? The above- mentioned injectate was then placed in a 1.5 mL aliquot preceded by negative aspiration.? The needle was removed. The needle was inserted and the procedure repeated at level left L5-S1.? The surgery site was covered.? Patient was taken to the postprocedural recovery area and monitored for an appropriate length of time before found suitable for discharge in the accompaniment of a responsible adult. Anesthesia: Local Surgeon: Calvin Palmer Pathology: none sent Condition: stable Disposition: no change
== END 2025-02-11 12:40 | disposition home or self-care (01) ==
LOC: SURGOUT 11:43
PROVIDERS: Visit Provider Anesthesiology
DX: M48.062 Spinal stenosis, lumbar region with neurogenic claudication (principal); M54.50 Low back pain, unspecified; E11.8 Type 2 diabetes mellitus with unspecified complications; Z79.85 Long-term (current) use of injectable non-insulin antidiabetic drugs
CPT/HCPCS: 36415; 64483; 64484; 82948; J0665; J1010; Q9966

== ENCOUNTER 2025-02-20 12:59 | Outpatient (OUT) | payer OTHER, SELFPAY ==
--- OUTSIDE RECORDS SUMMARY | 2025-02-20 13:02 | XMS_ITS | Encounter Summary ---
Author Organization [facility] Address [address], [address] [place] [address] Care Team Providers Care Crew Attendant Name Role Phone Paris Manning APRN, CNP Primary Care Provider + Reason for Referral * Imaging (Routine) - Closed Specialty Diagnoses / Procedures Referred By Contac t Referred To Contact Radiology Diagnoses Localized edema Hypouricemia Procedures US LIVER Paris Manning APRN - CNP [address] [place] [address] Phone: tel: fax: Referral ID Status Reason Start Date Expiration Date Visits Re quested Visits Authorized [id number] Closed 08/15/2023 08/14/2024 1 1 Encounter Details Date Type Department Care Team (Latest Contact Info) Description 08/15/2023 Transcribe Orders [facility] [address] [place], [place] [id number] Paris Manning APRN - CNP [address] [place] [address] Localized edema (Primary Dx); Hypouricemia Social History Tobacco Use Types Packs/Day Years Used Date Smoking Tobacco: Every Day Cigarettes Smokeless Tobacco: Never Alcohol Use Standard Drinks/Week Comments Yes 0 (1 standard drink = 0.6 oz pure alcohol) patient had 2 bottles of rum today AUDIT-C Answer Date Recorded Q1: How often do you have a drink containing alc ohol? Monthly or less 10/14/2022 Q2: How many drinks containi ng alcohol do you have on a typical day when you are drinking? 10 or more 10/14/2022 Q3: How often do you have si x or more drinks on one occasion? Weekly 10/14/2022 Interpersonal Safety Domain Source: IP Abuse Scr eening Answer Date Recorded How often does anyone, shakeel hernandez family and friends, physically hurt you? Not on file 04/29/2023 How often does anyone, shakeel hernandez family and friends, scream or curse at you? Not on file 04/29/2023 How often does anyone, shakeel hernandez family and friends, insult or talk down to you? Not on file 04/29/2023 How often does anyone, shakeel hernandez family and friends, threaten you with harm? Not on file 04/29/2023 Read-Only, Retired: Physical Abuse Denies 04/29/2023 Read-Only, Retired: Verbal Abuse Denies 04/29/2023 Read-Only, Retired: Emotional abuse Denies 04/29/2023 Financial abuse Not on file 04/29/2023 Sexual abuse Not on file 04/29/2023 Comments No Sex and Gender Information Value Date Recorded Sex Assigned at Not on file Legal Sex Female 11:43 AM EDT Gender Identity Not on file Sexual Orientation Not on file documented as of this encounter Plan of Treatment Not on file documented as of this encounter Results * US LIVER (08/24/2023 1:03 PM EST) Anatomical Region Laterality Modality Abdomen Ultrasound 08/24/2023 7:07 PM EST Impressions 08/24/2023 7:08 PM EST Hepatomegaly and hepatic steatosis. Narrative 08/24/2023 7:08 PM EST EXAMINATION: RIGHT UPPER QUADRANT ULTRASOUND 08/24/2023 12:37 [...] No evidence of right upper quadrant ascites. Procedure Note Braulio Crawley, DO - 08/24/2023 EXAMINATION: RIGHT UPPER QUADRANT ULTRASOUND 08/24/2023 12:37 [...] The right kidney is grossly unremarkable without evidenceof hydronephrosis. PANCREAS: Visualized portions of the pancreas are unremarkable. OTHER: No evidence of right upper quadrant ascites. IMPRESSION: Hepatomegaly and hepatic steatosis. us Paris Taylor CNP IMG US ORDERABLES Final Result documented in this encounter Visit Diagnoses Diagnosis Localized edema- Primary Edema Hypouricemia Other abnormal blood chemistry Localized edema Edema Hypouricemia Other abnormal blood chemistry documented in this encounter Care Teams Crew Attendant Relationship Specialty Start Date End Date Paris Manning APRN - CNP [address] [place] [address] PCP - General Nurse Practitioner, Family 04/29/23 documented as of this encounter
--- OUTSIDE RECORDS SUMMARY | 2025-02-20 13:02 | XMS_ITS | Encounter Summary ---
Author Organization [facility] Address [address], [address] [place] [address] Care Team Providers Care Underwriter Mortgage Loan Name Role Phone Paris Manning DARLEEN - SENIOR JAVA DATA ARCHITECT Primary Care Provider + Reason for Referral * Imaging (Routine) - Closed Specialty Diagnoses / Procedures Referred By Contac t Referred To Contact Radiology Diagnoses Pain in right hip Procedures MRI LUMBAR SPINE WO CONTRAST Gio Menendez DO [address] [place] [address] Phone: tel: Referral ID Status Reason Start Date Expiration Date Visits Re quested Visits Authorized [id number] Closed 11/30/2023 01/14/2024 1 1 Encounter Details Date Type Department Care Team (Latest Contact Info) Description 12/12/2023 Transcribe Orders Esteban Pre Access [address] [place] [address] Gio Menendez DO [address] [place] [address] Pain in right hip (Primary Dx) Social History Tobacco Use Types Packs/Day Years Used Date Smoking Tobacco: Every Day Cigarettes Smokeless Tobacco: Never Alcohol Use Standard Drinks/Week Comments Yes 0 (1 standard drink = 0.6 oz pure alcohol) patient had 2 bottles of rum today AUDIT-C Answer Date Recorded Q1: How often do you have a drink containing alcohol? 4 or more times a week 10/06/2023 Q2: How many drinks containi ng alcohol do you have on a typical day when you are drinking? 1 or 2 Q3: How often do you have si x or more drinks on one occasion? Never 10/06/2023 Interpersonal Safety Domain Source: IP Abuse Scr [...] documented as of this encounter Results * MRI LUMBAR SPINE WO CONTRAST (12/19/2023 2:57 PM EDT) Anatomical Region Laterality Modality T-spine, L-spine, Pelvis Magneti c Resonance 12/19/2023 2:57 PM EDT Impressions 12/22/2023 4:51 PM EDT 1. Mild rotatory dextroconvex scoliosis of the [...] this may be a source of pain. Narrative 12/22/2023 4:51 PM EDT HISTORY: Low back pain with right hip [...] also extends into the right L5 pedicle. Procedure Note [place], Dwayne Elliott MD - 12/22/2023 HISTORY: Low back pain with right hip pain for the past 6 months. MRI LUMBAR SPINE WO CONTRAST: 12/19/2023 2:57 PM EDT COMPARISON: Radiographs lumbar spine 10/19/2022. TECHNIQUE: Sagittal T1, T2, STIR, axial T1 and axial T2-weighted images ofthe lumbar spine were obtained. FINDINGS: Several images are slightly degraded by motion artifact. Thereis a mild rotatory dextroconvex scoliosis of the lumbar spine centered at theL3-L4 level. There is mild degenerative grade 1 retrolisthesis of 2 mm againseen at the L1-L2 through the L4-L5 level. There is no compression fracture. Thereis mild chronic anterior wedging of the L1 vertebral body which is probably physiologic in nature. There is multilevel discogenic disease of thevisualized lower thoracic spine and lumbar spine. This appears moderately severe onthe right at the L4-L5 level. The bone marrow signal intensity appears age appropriate. The conus medullaris is not studied in detail, but it appears grossly unremarkable. T11-T12 level: There is a small right paracentral disc protrusion causingmild narrowing of the right lateral recess. No central spinal canal stenosis or foraminal narrowing. T12-L1 level: No significant disc protrusion, spinal canal stenosis, or foraminal narrowing is seen. L1-L2 level: There is a small posterior disc-osteophyte complex withoutspinal canal stenosis or foraminal narrowing. There is mild-moderate facet joint arthropathy. L2-L3 level: There is a small posterior disc-osteophyte complex.Superimposed on this disc-osteophyte complex is a small left paracentral/left foraminaldisc extrusion with mild cranial and caudal migration into the region of theleft lateral recess and the superior aspect of the left foramen. This combineswith mild facet joint arthropathy to cause moderate-severe left foraminalnarrowing and mild narrowing of the left lateral recess. No central spinal canalstenosis or right foraminal narrowing. L3-L4 level: There is a small posterior disc-osteophyte complex without significant spinal canal stenosis or foraminal narrowing. There ismoderate right facet joint arthropathy. L4-L5 level: There is a small posterior disc-osteophyte complex moreprominent in the right foraminal/far lateral region and this combines with discspace narrowing and moderate- severe facet joint arthropathy on the right tocause severe right foraminal narrowing. There is also mild left foraminalnarrowing. No central spinal canal stenosis. L5-S1 level: There is a small posterior disc bulge causing mild bilateral foraminal narrowing. No central spinal canal stenosis. There is severefacet joint arthropathy and there are bilateral facet joint effusions. There isbone marrow edema-like signal within the adjacent articular processes, worse onthe right than the left. This bone marrow edema also extends into the right L5 pedicle. IMPRESSION: 1. Mild rotatory dextroconvex scoliosis of the lumbar spine withmultilevel foraminal narrowing at the L2-L3, L4-L5, and L5-S1 level secondary tofactors described above. This appears most severe on the right at the L4-E5hdpmr. 2. No central spinal canal stenosis of the lumbar spine. 3. There is multilevel facet joint arthropathy and this appears severe bilaterally at the L5-S1 level where there are bilateral facet jointeffusions. There is probable reactive bone marrow edema-like signal within theadjacent articular processes bilaterally at this level, which is worse on the rightthan the left and this may be a source of pain. us Gio Menendez DO IMG MRI ORDERABLES Final Resu lt documented in this encounter Visit Diagnoses Diagnosis Pain in right hip- Primary Pain in joint, pelvic region and thigh Pain in right hip Pain in joint, pelvic region and thigh documented in this encounter Care Teams Underwriter Mortgage Loan Relationship Specialty Start Date End Date Paris Manning APRN - SENIOR JAVA DATA ARCHITECT [address] [place] [address] PCP - General Nurse Practitioner, Family 04/29/23 documented as of this encounter
--- OUTSIDE RECORDS SUMMARY | 2025-02-20 13:02 | XMS_ITS | Encounter Summary ---
Author Organization [facility] Address [address], [address] [place] [address] Care Team Providers Care Crew Clerk Name Role Phone Paris Manning APRN, CNP Primary Care Provider + Encounter Details Date Type Department Care Team ([facility] st Contact Info) Description 11/08/2017 FollowUp Telephone Encounter [facility] [address] [place] [address] Yuliana Esparza Social History Tobacco Use Types Packs/Day Years Used Date Smoking Tobacco: Never Assessed Comments Unknown Sex and Gender Information Value Date Recorded Sex Assigned at Not on file Legal Sex Female 11:43 AM EDT Gender Identity Not on file Sexual Orientation Not on file documented as of this encounter Progress Notes * Yuliana Esparza - 11/08/2017 2:13 PM EDT Sleep Lab - Unable to leave message for patient. Voicemail is full. Called to do CPAP assessment and FOSQ. documented in this encounter Plan of Treatment Not on file documented as of this encounter Visit Diagnoses Not on filedocumented in this encounter Additional Health Concerns Infection Onset Date Last Indicated Resolved Time COVID-19 (Rule Out) 03/17/2020 03/17/2020 03/17/20 20 8:13 AM EDT documented as of this encounter Care Teams Crew Clerk Relationship Specialty Start Date End Date Paris Manning APRN - CNP [address] [place] [address] PCP - General Nurse Practitioner, Family 04/29/23 documented as of this encounter
--- OUTSIDE RECORDS SUMMARY | 2025-02-20 13:02 | XMS_ITS | Encounter Summary ---
Author Organization [facility] Address [address], [address] [place] [address] Care Team Providers Care Lumber Stacker Driver Name Role Phone NigelScottmy DARLEEN Taylor CNP Primary Care Provider + Reason for Referral * Other (Routine) - Closed Specialty Diagnoses / Procedures Referred By Contac t Referred To Contact Diagnoses SOB (shortness of breath) Obstructive sleep apnea syndrome Moderate persistent asthma without complication Tobacco abuse Procedures Full PFT Study With Bronchodilator Mulu Dean APRN - CNP Phone: tel: fax: Referral ID Status Reason Start Date Expiration Date Visits Re quested Visits Authorized [id number] Closed 05/15/2021 05/14/2022 1 1 Encounter Details Date Type Department Care Team (Late st Contact Info) Description 05/14/2021 Transcribe Orders Esteban Pre Access [address] [place] [address] Mulu Dean APRN - CNP [address] [place] [address] SOB (shortness of breath) (Primary Dx); Obstructive sleep apnea syndrome; Moderate persistent asthma without complication; Tobacco abuse Social History Tobacco Use Types Packs/Day Years Used Date Smoking Tobacco: Every Day Cigarettes Smokeless Tobacco: Never Comments:5 cigarettes/day Alcohol Use Standard Drinks/Week Comments Yes 0 (1 standard drink = 0.6 oz pur e alcohol) occas. Comments No Sex and Gender Information Value Date Recorded Sex Assigned at Not on file Legal Sex Female 11:43 AM EDT Gender Identity Not on file Sexual Orientation Not on file documented as of this encounter Plan of Treatment Not on file documented as of this encounter Results * Full PFT Study With Bronchodilator (05/21/2021 12:12 PM EST) Narrative Procedure Note Denver Robins MD - 05/21/2021 12:12 [place] [address] PULMONARY FUNCTION PATIENT NAME: TIFFANIE BLEDSOE : 1960 MED REC NO: [id number] ROOM: ACCOUNT NO: [id number] ADMIT DATE: 05/21/2021 PROVIDER: Denver Robins DATE OF PROCEDURE: 05/21/2021 PULMONARY FUNCTION TESTS WITH BRONCHODILATOR AND DLCO ATTENDING PROVIDER: Mulu Dean CNP REASON FOR TEST: Shortness of breath. SUMMARY: 1. Respiratory therapist reports the patient's effort as being good. 2. The forced vital capacity is decreased at 71% of predicted. 3. The forced exhaled volume in 1 second is decreased at 74% of predicted. 4. The forced exhaled volume in 1 second/forced vital capacity is normal at 102% of predicted. 5. The forced exhaled flow at 25-75% is decreased at 72% of predicted. 6. A significant improvement was seen only in the forced exhaled flow at 25-75% after one-time dose of bronchodilator. 7. Total lung capacity is normal at 81% of predicted. 8. The DLCO is decreased at 78% of predicted, the DLCO/VA is normal at 92% of predicted. IMPRESSION: 1. Relatively normal prebronchodilator pulmonary function tests. 2. A significant improvement was seen only in the forced exhaled flow at 25-75% after one-time dose of bronchodilator to suggest a possible reversible small airway disease (asthma), please correlate clinically. 3. The DLCO is mildly decreased, but the DLCO/VA is normal. DENVER ROBINS [id number] Doc#: [id number] CC: Mulu Dean APRN - MEN'S LEATHER DRESS BELT MAKER PFT ORDERABLES F inal Result documented in this encounter Visit Diagnoses Diagnosis SOB (shortness of breath)- Primary Shortness of breath Obstructive sleep apnea syndrome Obstructive sleep apnea (adult) (pediatric) Moderate persistent asthma without complication Unspecified asthma Tobacco abuse Tobacco use disorder SOB (shortness of breath) Shortness of breath Obstructive sleep apnea syndrome Obstructive sleep apnea (adult) (pediatric) Moderate persistent asthma without complication Unspecified asthma Tobacco abuse Tobacco use disorder documented in this encounter Care Teams Lumber Stacker Driver Relationship Specialty Start Date End Date Paris Manning APRN - CNP [address] [place] [address] PCP - General Nurse Practitioner, Family 04/29/23 documented as of this encounter
--- OUTSIDE RECORDS SUMMARY | 2025-02-20 13:02 | XMS_ITS | Clinical Summary ---
Author Organization [facility] Address [address], [address] [place] [address] Care Team Providers Care Special Programs Director Name Role Phone Nigel Paris DARLEEN - BENCH JEWELER Primary Care Provider + Allergies No known active allergies Medications ARIPiprazole (ABILIFY) 2 MG tablet Take 1 tablet by mouth nightly Active atorvastatin (LIPITOR) 80 MG tablet Take 1 tablet by mouth nightly Active FLUoxetine (PROZAC) 40 MG capsule Take 1 capsule by mouth nightly Active albuterol sulfate HFA 108 (90 Base) MCG/ACT inhaler Inhale 2 puffs into the lungs every 4 hours as needed for Wheezing Active pantoprazole (PROTONIX) 40 MG tabletIndication s:Gastroesophage al reflux disease, esophagitis presence not specified Take 1 tablet by mouth daily 30 tablet 3 0 Active hydroCHLOROthiaz osvaldo (HYDRODIURIL) 25 MG tablet Take 2 tablets by mouth daily Active metFORMIN (GLUCOPHAGE) 500 MG tablet Take 1 tablet by mouth 2 times daily (with meals) Active furosemide (LASIX) 20 MG tablet Take 2 tablets by mouth daily as needed Active loratadine (CLARITIN) 10 MG tablet Take 1 tablet by mouth daily Active omeprazole (PRILOSEC) 20 MG delayed release capsule Take 1 capsule by mouth daily Active montelukast (SINGULAIR) 10 MG tablet Take 1 tablet by mouth nightly Active traZODone (DESYREL) 150 MG tablet Take 1 tablet by mouth nightly as needed for Sleep Active tiotropium (SPIRIVA RESPIMAT) 1.25 MCG/ACT AERS inhaler Inhale 2 puffs into the lungs daily Active budesonide-formo terol (SYMBICORT) 160-4.5 MCG/ACT AERO Inhale 2 puffs into the lungs 2 times daily Active D 5000 125 MCG (5000 UT) CAPS capsule take 1 capsule by mouth once daily with food 3 Active Dulaglutide 0.75 MG/0.5ML SOPN Inject 0.75 mg into the skin 3 Active empagliflozin (JARDIANCE) 10 MG tablet Take by mouth 3 Active glipiZIDE (GLUCOTROL XL) 2.5 MG extended release tablet Take 1 tablet by mouth daily 3 Active losartan (COZAAR) 50 MG tablet Take by mouth 3 Active potassium chloride (KLOR-CON M) 20 MEQ extended release tablet 3 Active ENTRESTO 24-26 MG per tablet take 1 tablet by mouth twice a day (STOP LOSARTAN 50MG) 3 Active Semaglutide,0.25 or 0.5MG/DOS, 2 MG/1.5ML SOPN Inject 0.25 mg into the skin 3 Active spironolactone (ALDACTONE) 25 MG tablet 3 Active MELOXICAM PO Meloxicam Active ARIPiprazole (ABILIFY PO) Abilify Active Fluticasone-Salm eterol (ADVAIR DISKUS IN) See Instructions, Refill(s) 0 3 Active Active Problems Problem Noted Date Diagnosed Date Leukedema of tongue 10/08/2020 Hoarse 10/08/2020 Pain, abdominal, nonspecific 03/17/2020 Syncope and collapse 06/18/2018 Degenerative arthritis of left knee 03/16/2018 Presence of left artificial knee joint 8 DJD (degenerative joint disease) 03/15/2018 Immunizations Immunization Administration Dates Next Due Influenza Virus Vaccine 03/19/2018 Family History Relation Name Status Comments Brother 1 Alive Brother 2 Alive Brother 3 Alive Father Maternal Grandfather Maternal Grandmother Mother Paternal Grandfather Paternal Grandmother Sister Alive Social History Tobacco Use Types Packs/Day Years Used Date Smoking Tobacco: Every Day Cigarettes Smokeless Tobacco: Never Tobacco Cessation:Ready to Q uit: Not Asked; Counseling Given: Not Answered Alcohol Use Standard Drinks/Week Comments Yes 0 [...] on file Sexual Orientation Not on file Last Filed Vital Signs Vital Sign Reading Time Taken Comments Blood Pressure 142/73 10/06/2023 10:01 AM EDT Pulse 71 10/06/2023 10:27 AM EDT Temperature 36.8 C (98.2 F) 10/06/2023 9:12 AM EDT Respiratory Rate 14 10/06/2023 10:27 AM EDT Oxygen Saturation 95% 10/06/2023 10:27 AM EDT Inhaled Oxygen Concentration - - Weight 161.9 kg (357 lb) 10/06/2023 9:10 AM EDT Height 167.6 cm (5' 6 ) 10/06/2023 9:10 AM EDT Body Mass Index 57.62 10/06/2023 9:10 AM EDT Plan of Treatment Health Maintenance Due Date Last Done Comments Depression Screen 1974 HIV screen 1977 Hepatitis C screen 1980 Pap smear 11/16/1983 Cervical cancer screen 1992 HPV (without or with Pap) 1992 FIT/FOBT: Average risk 11/16/2007 Fecal-DNA (Cologuard): Average risk 11/16/2007 Sigmoidoscopy/CT colonography 11/16/2007 Shingles vaccine (3 of 3) 09/03/20202020, 07/09/2020, 04/10/2020, Additional history exists Breast cancer screen 09/29/2020 09/29/2018, 06/30/20 17 Pneumococcal 50+ years Vaccine (2 of 2 - PCV) 04/10/2021 04/10/2020, 12/16/2017 Respiratory Syncytial Virus (RSV) or age 60 yrs+ (1 - Risk 60-74 years 1-dose series) 2022 COVID-19 Vaccine ( season) 2024 05/31/2023, 05/11/2022, 12/15/2021, Additional history exists Lipids 08/10/2024 08/10/2023, 09/06/2019 Flu vaccine (#1) 02/01/2025 03/18/2023, 02/2022, 05/05/2021, Additional history exists Colonoscopy 03/17/2030 03/17/2020 Colorectal Cancer Screen 03/17/2030 DTaP/Tdap/Td vaccine (3 - Td or Tdap) 04/10/2030 04/10/2020, 10/27/2014 Pneumococcal 0-49 years Vaccine Discontinued 04/10/2020, 12/16/2017 A1C test (Diabetic or Prediabetic) Discontinued 08/10/2023, 09/06/2019 Diabetes screen Discontinued 08/10/2023, 09/06/2019 Hepatitis A vaccine Aged Out No longe r eligible based on patient's age to complete this topic Hepatitis B vaccine Aged Out No longe r eligible based on patient's age to complete this topic Hib vaccine Aged Out No longer eligi ble based on patient's age to complete this topic Meningococcal (ACWY) vaccine Aged Out No longer eligible based on patient's age to complete this topic Meningococcal B vaccine Aged Out No l onger eligible based on patient's age to complete this topic Polio vaccine Aged Out No longer elig ible based on patient's age to complete this topic Medical Devices Implanted Type Area Marketing Program Coordinator Device Identifier Shelf Expiration Date Model / Serial / Lot Cement Smartghv W/ Gent 40gr Must Order 20ea Implanted:Qty : 1 on 03/15/2018 by Yury Gonsalez DO at [facility] Cement Left: Knee JNJ: [employer]-M 04/02/2019 [id number] / / [id number] Cement Smartghv W/ Gent 40gr Must Order 20ea Implanted:Qty : 1 on 03/15/2018 by Yury Gonsalez DO at [facility] Cement Left: Knee JNJ: [employer]-PMM 01/31/2019 [id number] / / [id number] Cement Smartghv W/ Gent 40gr Must Order 20ea Implanted:Qty : 2 on 04/26/2018 by Yury Gonsalez DO at [facility] Cement Right: Knee JNJ: [employer]-M 08/03/2019 [id number] / / [id number] Impl Knee Patella Asym X3 [id number] Implanted:Qty : 1 on 04/26/2018 by Yury Gonsalez DO at [facility] Knee Right: Knee BAR: ORTHOP[employer]-PM 02/26/2023 [id number] / / [id number] Procedures Procedure Name Priority Date/Time Associated Diagnosis Comments LIPID PANEL Routine 08/10/2023 3:41 PM EST HEMOGLOBIN A1C Routine 08/10/2023 3:41 PM EST WANG DIGITAL SCREEN W OR WO CAD BILATERAL Routine 09/29/2018 10:49 AM EDT Breast cancer screening from Last 3 Months or Most Recently Relevant to Health Maintenance Results * Hemoglobin A1C (08/10/2023 3:41 PM EST) Hemoglobin A1C 5.4 4.0 - 6.0 % 08/10/2023 3:41 PM EST [employer] Estimated Avg Glucose 108 mg/dL 08/10/2023 3:41 PM EST [employer] Comment: The ADA and AACC recommend providing the estimated average glucose result to permit better patient understanding of their HBA1c result. 08/10/2023 3:41 PM EST 08/10/2023 3:42 PM EST Paris Manning INSURANCE ATTORNEY [facility] CHEMISTRY ORDERABLES Fin al Result Performing Organization Address [facility] Co de Phone Number [facility] [address] [place] [address], [facility] [phone] [facility] [address] [place] [address], [facility] [phone] * (ABNORMAL) Lipid Panel (08/10/2023 3:41 PM EST) Cholesterol 206(H) <200 mg/dL 08/10/2023 3:41 PM EST [facility] Comment: Cholesterol Guidelines: <200 Desirable 200-240 Borderline >240 Undesirable HDL 95 >40 mg/dL 08/10/2023 3:41 PM EST [employer] Comment: HDL Guidelines: <40 Undesirable 40-59 Borderline >59 Desirable LDL Cholesterol 67 0 - 130 mg/dL 08/10/2023 3:41 PM EST [employer] Comment: LDL Guidelines: <100 Desirable 100-129 Near to/above Desirable 130-159 Borderline >159 Undesirable Direct (measured) LDL and calculated LDL are not interchangeable tests. Chol/HDL Ratio 2.2 <5 08/10/2023 3:41 PM EST [employer] Comment: Triglycerides 221(H) <150 mg/dL 08/10/2023 3:41 PM EST [employer] Comment: Triglyceride Guidelines: <150 Desirable 150-199 Borderline 200-499 High >499 Very high Based on AHA Guidelines for fasting triglyceride, April 2012. 08/10/2023 3:41 PM EST 08/10/2023 3:42 PM EST Paris Manning INSURANCE ATTORNEY [facility] CHEMISTRY ORDERABLES Fin al Result Performing Organization Address City/[facility]/ZIP Co de Phone Number [facility] [address] [place] [address], [facility] [phone] [facility] [employer] [address] [id number], [facility] [phone] * WANG DIGITAL SCREEN W OR WO CAD BILATERAL (09/29/2018 10:49 AM EDT) Anatomical Region Laterality Modality Breast Bilateral Mammography 09/29/2018 10:5 0 AM EDT Impressions 10/03/2018 9:21 AM EDT BI-RADS 1 - Negative, no evidence of malignancy. Normal interval followup in 12 months. OVERALL ASSESSMENT- NEGATIVE A letter of notification will be sent to the patient regarding the results. Narrative 10/03/2018 9:21 AM EDT HISTORY: Screening. TECHNIQUE: Bilateral digital mammogram with CAD. FINDINGS: Two views of each breast show scattered areas of fibroglandular density. No change from 06/22/2017. Suspicious calcifications: None. Suspicious mass: None. Benign calcifications: None. (If skin markers were applied, circles represent skin lesions and linear markers represent scars.) Procedure Note Casa Minor Jr., MD - 10/03/2018 HISTORY: Screening. TECHNIQUE: Bilateral digital mammogram with CAD. FINDINGS: Two views of each breast show scattered areas of fibroglandular density. No change from 06/22/2017. Suspicious calcifications: None. Suspicious mass: None. Benign calcifications: None. (If skin markers were applied, circles represent skin lesions and linear markers represent scars.) IMPRESSION: BI-RADS 1 - Negative, no evidence of malignancy. Normal interval followupin 12 months. OVERALL ASSESSMENT- NEGATIVE A letter of notification will be sent to the patient regarding theresults. Mulu Dean APRN - BENCH JEWELER IMG MAMMOGRAPHY O RDERABLES Final Result from Last 3 Months or Most Recently Relevant to Health Maintenance Insurance [facility] [place] Advance Directives * Full Code (Latest Code Status on File) Date Activated Date Inactivated Comments 03/17/2020 11:39 AM 03/17/2020 3:44 PM * Full Code Date Activated Date Inactivated Comments 03/17/2020 8:35 AM 03/17/2020 11:39 AM * Full Code Date Activated Date Inactivated Comments 06/18/2018 1:23 PM 06/19/2018 8:22 PM * Full Code Date Activated Date Inactivated Comments 04/26/2018 5:22 PM 04/27/2018 1:14 PM * Full Code Date Activated Date Inactivated Comments 04/26/2018 11:04 AM 04/26/2018 5:16 PM Care Teams Special Programs Director Relationship Specialty Start Date End Date Paris Manning APRN - [place] [address] [place] [address] PCP - General Nurse Practitioner, Family 04/29/23
--- OUTSIDE RECORDS SUMMARY | 2025-02-20 13:02 | XMS_ITS | Patient Health Record ---
Author Organization [facility] Address [address] [place] [address] Care Team Providers Care Teacher Learning Disabled Name Role Phone Gio Menendez Unavailable [phone] Allergies No Known Allergies Reason For Referral No Information Medications Medication SIG (Take, Route, Frequency, Duration) Notes Start Date End Date Status spironolactone 25 mg for 90 Days Active ARIPiprazole 2 mg for 90 Days Active rosuvastatin 11/21/2023 Active gabapentin 300 mg 1 cap(s) orally 1 pi ll once a day for 3 days, 1 pill twice a day for 3 days, 1 pill three times a day there after for 30 day(s) 01/10/2024 Active TRAZODONE HCL 50 MG take 1 tablet by manish th at bedtime for 30 Days Active Potassium Chloride (Eqv-K-Tab) 20 mEq for 30 Days Active pantoprazole 40 mg take 1 tablet by manish th once daily for 90 Days Active Medrol Dose Pack 4 mg as directed ORAL DIRECTED Active albuterol 11/21/2023 Active furosemide 40 mg for 90 Days A ctive glipiZIDE 11/21/2023 Active Trulicity Pen 1.5 mg/0.5 mL inject 1 and 1/2 milligram subcutaneously every week for 28 Days Active Jardiance 10 mg for 90 Days Ac tive FLUoxetine HCl 20 MG for 90 Days Active Social History Tobacco Use: Social History Observation Description Date Details (start date - stop date) Current Smoker NA - NA Smoking History Question Answer Notes Smoking Status Current Smoker Alcohol Screening Question Answer Notes Did you have a drink containging alcohol in the last year? Yes Points 0 Interpretation Negative Problems Problem Type SNOMED Code ICD Code Onset Dates Problem Status W/U Status Risk Notes Problem 850381089731598 Right hip pain (M25.551) Active confirmed Problem 812966257 Lumbar radiculopathy (M54.16) Active confirmed Problem 429605564045198 Pain in right hip (M25.551) Active confirmed Problem 434494784151795 Trochanteric bursitis of right hip (M70.61) Active confirmed Problem 415345920765510 Unilateral primary osteoarthritis, right hip (M16.11) Active confirmed Problem Lumbar radiculopathy (651043606) Radiculopathy, lumbar region (M54.16) Active confirmed Problem Lumbosacral spondylosis with radiculopathy (504416535) Lumbosacral spondylosis with radiculopathy (M47.27) Active confirmed Problem Lumbosacral spinal stenosis (M48.07) Active confirmed Problem 37797733 DDD (degenerative disc disease), lumbosacral (M51.37) Active confirmed Problem 95135781 Degenerative lumbar disc (M51.36) Active confirmed Plan Of Treatment Pending Test Test Name Order Date MRI : Lumbosacral Spine W/O Contrast - 7 214711/21/2023 DJM-Hip Injection with Inter ventional Radiology (Skin Injection: 1% Lidocaine without Epinephrine, Hip Injection: 2ml 0.2.5% Marcaine, 2ml 1% Lidocaine, 1ml Depomedrol 80mg/ml) 08/22/2023 Insurance Providers Payer Name Payer Address Payer Phone Subscriber Number Group Number Insured Name Patient Relationship to Insured Coverage Start Date Coverage End Date Medicaid [employer] [place] [address] [place] [address] [id number] TIFFANIE BLEDSOE Self - patient is the insured Medical (General) History Medical History History ICD Code Asthma/COPD Type II diabetes Depression Anxiety Sleep apnea CPAP Machine: Do you use the CPAP machine? Yes
--- OUTSIDE RECORDS SUMMARY | 2025-02-20 13:02 | XMS_ITS | Encounter Summary ---
Author Organization [facility] Address [address] [place] [address] Care Team Providers Care Rib Puller Name Role Phone Unavailable Primary Care Provider Unavailabl e Encounter Details Date Type Department Care Team (Late st Contact Info) Description 12/01/2022 Clinisync Result Encounter [facility] External Department Unsolicited Mulu Dean NP [address] [place] [address] Social History Tobacco Use Types Packs/Day Years Used Date Smoking Tobacco: Never Assessed Comments Unknown Sex and Gender Information Value Date Recorded Sex Assigned at Not on file Legal Sex Female 8:15 PM EDT Gender Identity Not on file Sexual Orientation Not on file documented as of this encounter Plan of Treatment Not on file documented as of this encounter Procedures Procedure Name Priority Date/Time Associated Diagnosis Comments VL DUP LOWER EXTREMITY VENOUS BILATERAL 12/01/2022 4:48 PM EDT documented in this encounter Results * VL DUP LOWER EXTREMITY VENOUS BILATERAL (12/01/2022 4:48 PM EDT) Anatomical Region Laterality Modality Other 12/01/2022 4:48 PM EDT Narrative 12/17/2022 4:15 PM EDT EXAM: VL DUP LOWER EXTREMITY VENOUS BILATERAL [...] superficial or deep system bilaterally. IMPRESSION: Negative. Interpreted by: Casa Minor Jr., MD Signed by: Casa Minor Jr., MD 12/01/22 Final result Procedure Note Radiology, Radiologist, - 12/17/2022 EXAM: VL DUP LOWER EXTREMITY VENOUS BILATERAL REFLUX STUDY. HISTORY: Bilateral leg swelling and pain, 3 months. Fatigue, unspecifiedtype. COMPARISON: None. TECHNIQUE: Compression and augmentation with velocity measurements of the superficial venous system both lower extremities. Evaluation of the deepvenous system bilaterally for thrombus. FINDINGS: No reflux. No thrombus from the groin through the calf withinthe superficial or deep system bilaterally. IMPRESSION: Negative. Interpreted by: Caas Minor Jr., MD Signed by: Casa Minor Jr., MD 12/01/22 Final result Mulu Dean NP [facility] Final Result documented in this encounter Visit Diagnoses Not on filedocumented in this encounter
--- OUTSIDE RECORDS SUMMARY | 2025-02-20 13:02 | XMS_ITS | Encounter Summary ---
Author Organization [facility] Address [address], [address] [place] [address] Care Team Providers Care Salvage Inspector Name Role Phone Paris Manning APRN, CNP Primary Care Provider + Reason for Referral * Other (Routine) - Closed Specialty Diagnoses / Procedures Referred By Contac t Referred To Contact Radiology Diagnoses Encounter for screening mammogram for malignant neoplasm of breast Procedures WANG KM DIGITAL SCREEN BILATERAL Paris Manning APRN - CNP Phone: tel: fax: Referral ID Status Reason Start Date Expiration Date Visits Re quested Visits Authorized [id number] Closed 12/01/2022 12/01/2023 1 1 Encounter Details Date Type Department Care Team (Latest Contact Info) Description 12/01/2022 Transcribe Orders [facility] Pre Access [address] [phone] Paris Manning APRN - CNP [address] [phone] Encounter for screening mammogram for malignant neoplasm of breast (Primary Dx) Social History Tobacco Use Types [...] more drinks on one occasion? Weekly 10/14/2022 Comments No Sex and Gender Information Value Date Recorded Sex Assigned at Not on file Legal Sex Female 11:43 AM EDT Gender Identity Not on file Sexual Orientation Not on file documented as of this encounter Plan of Treatment Scheduled Orders Name Type Priority Associated Diagnoses Orde r Schedule WANG KM DIGITAL SCREEN BILATERAL Imaging Routine Encounter for screening mammogram for malignant neoplasm of breast Expected: 12/01/2022, Expires: 12/02/2023 documented as of this encounter Visit Diagnoses Diagnosis Encounter for screening mammogram for malignant neoplasm of breast- Primary Other screening mammogram documented in this encounter Care Teams Salvage Inspector Relationship Specialty Start Date End Date Paris Manning APRN - AGRICULTURAL EQUIPMENT OPERATOR [address] [place] [address] PCP - General Nurse Practitioner, Family 04/29/23 documented as of this encounter
--- OUTSIDE RECORDS SUMMARY | 2025-02-20 13:02 | XMS_ITS | Clinical Summary ---
Author Organization [employer] Address [address] [place] [address] Care Team Providers Care Cleaning Maid Name Role Phone Paris Manning IRVING Primary Care Provider [phone] Allergies Active Allergy Reactions Criticality Noted Date Comments Amlodipine High 11/07/2024 Other Reaction(s): Leg Edema Metformin Diarrhea 11/07/2024 Medications Albuterol 108 (90 Base) MCG/ACT Aero Soln inhaler Inhale 2 puffs every 4 hours as needed for Wheezing. Active Aripiprazole 5 MG tablet Take 1 tablet by mouth daily. Active atorvastatin 80 MG tablet Take 1 tablet by mouth Every night. Active Trulicity 3 MG/0.5ML Solution Auto-injector Inject 3 mg under the skin once a week. 10/26/2024 Active Jardiance 10 MG tablet Take 1 tablet by mouth daily. Active FLUoxetine 20 MG capsule Take 2 capsules by mouth daily. Active furOSEmide 40 MG tablet Take 1 tablet by mouth daily. 06/05/2024 Active Gabapentin 300 MG capsule Take 1 capsule by mouth 3 times daily. Active glipiZIDE 2.5 MG tablet XL Take 1 tablet by mouth daily. 12/20/2023 Active Pantoprazole [address] tablet DR Take 1 tablet by mouth daily. 05/07/2024 Active Potassium Chloride ER 20 MEQ Tab CR tablet take 1 tablet by mouth once daily WITH LASIX Active Crestor 40 MG tablet Take 1 tablet by mouth daily. 06/05/2024 Active Spironolactone 25 MG tablet Take 1 tablet by mouth daily. Active Active Problems Problem Noted Date Diagnosed Date Morbid obesity with body mass index of 50 or hig her 11/07/2024 Encounters Date Type Department Care Team Description 01/17/2025 Telephone [facility] [address] [place] [phone] Veroromel Rene, LPN Other 01/17/2025 Telephone [facility] Family Medicine [address] [place] [phone] Luís Otto PsyD Reschedule 01/01/2025 Telephone [facility] Psychology [address] [place] [phone] Luís Otto, Jessica Reschedule from Last 3 Months Social History Tobacco Use Types Packs/Day Years Used Date Smoking Tobacco: Every Day Cigarettes 0.5 45.6 Started: 07/04/1979 Smokeless Tobacco: Never Tobacco Cessation:Ready to Q uit: Yes; Counseling Given: No Alcohol Use Standard Drinks/Week Comments Yes 0 (1 standard drink = 0.6 oz pur e alcohol) occasionally Comments No Sex and Gender Information Value Date Recorded Sex Assigned at Not on file Legal Sex Female 1:05 PM EDT Gender Identity Not on file Sexual Orientation Not on file Last Filed Vital Signs Vital Sign Reading Time Taken Comments Blood Pressure 122/82 11/07/2024 9:58 AM EDT Pulse 85 11/07/2024 9:58 AM EDT Temperature - - Respiratory Rate 22 11/07/2024 9:58 AM EDT Oxygen Saturation 97% 11/07/2024 9:58 AM EDT Inhaled Oxygen Concentration - - Weight 153.8 kg (339 lb) 11/07/2024 9:58 AM EDT Height 167.6 cm (5' 6 ) 11/07/2024 9:58 AM EDT Body Mass Index 54.72 11/07/2024 9:58 AM EDT Plan of Treatment Upcoming Encounters Date Type Department Care Team (Late st Contact Info) Description 03/25/2025 1:20 PM EDT Office Visit [facility] Cardiology [address] [place] [phone] Hilario Hensley MD [address] [place] [address] Health Maintenance Due Date Last Done Comments HEPATITIS C VIRUS SCREENING 1962 POTASSIUM 1962 HIV SCREENING DISCUSSION 1977 CERVICAL CANCER SCREENING DISCUSSION 11/16/1983 LIPID SCREENING 2002 COLORECTAL CANCER SCREENING DISCUSSION 11/16/2007 LUNG CANCER SCREENING 2012 MAMMOGRAM SCREENING DISCUSSION 09/30/2019 09/29/2018, 06/30/2017 PNEUMOCOCCAL VACCINE SERIES (2 of 2 - PCV) 04/10/2021 04/10/2020, 12/16/2017 RSV VACCINE (1 - Risk 60-74 years 1-dose series) 2022 COVID-19 VACCINE ( season) 2024 05/31/2023, 05/11/2022, 12/15/2021, Additional history exists INFLUENZA VACCINE (#1) 2025 , 03/18/2023, 05/11/2022, Additional history exists TETANUS 04/10/2030 04/10/2020, 10/27/2014 TDAP (ADULT) Completed 04/10/2020, 10/27/2014 ZOSTER (SHINGLES) VACCINE Completed 2020, 07/09/2020, 04/10/2020, Additional history exists HEP B VACCINE Aged Out No longer elig ible based on patient's age to complete this topic Insurance [facility] Medicaid Community Plan Care Teams Cleaning Maid Relationship Specialty Start Date End Date Paris Manning, CVT TECH [address] [place] [address] PCP - General Nurse Practitioner - Family 11/07/24
--- OUTSIDE RECORDS SUMMARY | 2025-02-20 13:02 | XMS_ITS | Clinical Summary ---
Author Organization [facility] Address [address] [facility] [place] [address] Care Team Providers Care Export Sales Assistant Name Role Phone Unavailable Primary Care Provider Unavailabl e Social History Tobacco Use Types Packs/Day Years Used Date Smoking Tobacco: Never Assessed Comments Unknown Sex and Gender Information Value Date Recorded Sex Assigned at Not on file Legal Sex Female 8:15 PM EDT Gender Identity Not on file Sexual Orientation Not on file Last Filed Vital Signs Vital Sign Reading Time Taken Comments Blood Pressure 143/94 06/01/2018 12:00 PM EST Pulse - - Temperature - - Respiratory Rate - - Oxygen Saturation - - Inhaled Oxygen Concentration - - Weight 134 kg (295 lb 6.4 oz) 06/01/2018 12:00 P M EST Height 166.4 cm (5' 5.5 ) 06/01/2018 12:00 PM ES T Body Mass Index 48.41 06/01/2018 12:00 PM EST Plan of Treatment Not on file Insurance [facility] MEDICAID
--- OUTSIDE RECORDS SUMMARY | 2025-02-20 13:10 | XMS_ITS | CCD ---
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 Name Role Phone Mulu Dean Primary Care Provider Mulu DEAN Primary Care Physician Myron Rust Primary Care Physician [phone] Jermaine MOREJON - PINSETTER MECHANIC AUTOMATIC, Mulu Primary Care Pro vider NON STAFF Primary Care Provider Unavailabl e DO Joo Ramos Emergency Provider [phone] MD Marilyn Sun Admit Provider MD Marilyn uSn Attending Provider [phone] DO Joo Ramos Emergency Provider [phone] MD Marilyn Sun Admit Provider [phone] MD José Sanchez Attending Provider MD Lupis Schwartz Primary Care Provider Marilyn Sun Admitting Unavailable José Sanchez Attending Unavailable Lupis Schwartz Primary Care Unavailable Lupis SCHWARTZ Primary Care Physician Jermaine MOREJON - IRVING, Mulu Primary Care Pro vider Yocasta MOREJON - Myron VILLATORO Primary Care Provider MYRON RUST Referring Unavailable MYRON RUST Primary Care Unavailable Myron Rust Primary Care Physician KAMALJIT MENENDEZ Attending Unavailable KAMALJIT MENENDEZ Referring Unavailable MYRON RUST Primary Care Unavailable ALIRIO RAMIREZ Referring Unavailab le YOCASTA, MYRON Primary Care Unavailable MEGHAN, MIHIR Referring Unavailable YOCASTA, MYRON Primary Care Unavailable KAMALJIT MENENDEZ Referring Unavailable YOCASTA, MYRON Primary Care Unavailable YOCASTA, MYRON Referring Unavailable YOCASTA, MYRON Primary Care Unavailable YOCASTA, MYRON Referring Unavailable YOCASTA, MYRON Primary Care Unavailable YOCASTA, MYRON Referring Unavailable YOCASTA, MYRON Primary Care Unavailable MEGHAN, MIHIR Referring Unavailable YOCASTA, MYRON Primary Care Unavailable MEGHAN, MIHIR Referring Unavailable YOCASTA, MYRON Primary Care Unavailable YOCASTA, MYRON Primary Care Unavailable LYNSEY, VESELIN Attending Unavailable LYNSEY, VESELIN Attending Unavailable YOCASTA, MYRON Primary Care Unavailable MEGHAN, MIHIR Referring Unavailable YOCASTA, MYRON Primary Care Unavailable Yocasta, MSN, 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PINSETTER MECHANIC AUTOMATIC Myron Hamilton Attending U jesika Rust, MSN, 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PINSETTER MECHANIC AUTOMATIC Myron Hamilton Admitting U jesika CARBAJAL, XXXX Referring Unavailable Alirio Ramirez Attending Unavaila AISHA Enriquez Attending Unavailable NONE, XXXX Referring Unavailable Walker Phillip Talal Admitting Unavaila Walker Wesley Attending Unavaila Walker Wesley Referring Unavaila Alirio Brandon Consulting Unavaila Alirio Brandon Attending Alirio Lovell Referring Unavaila Alirio Brandon Admitting Unavaila MD Alirio Brandon Consulting Ailynva ilAlirio Bird Consulting Unavaila ble Walker Phillip Attending Unavaila Walker Wesley Attending Unavaila caroline Rust, MSN, 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IRVING Hamilton Attending U jesika Rust, MSN, 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PINSETTER MECHANIC AUTOMATIC Myron Hamilton Attending U jesika Rust, MSN, 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PINSETTER MECHANIC AUTOMATIC Myron Hamilton Attending U jesika Rust, MSN, 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PINSETTER MECHANIC AUTOMATIC Myron Hamilton Attending U jesika Rust, MSN, 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PINSETTER MECHANIC AUTOMATIC Myron Hamilton Attending U Alirio Ennis Attending Unavaila caroline NONE, XXXX Referring Unavailable Myron Rust CNP Primary Care Provider Yocasta, Myron L. Attending Unavailable Yocasta, Myron L. Attending Unavailable Yocasta, Myron L. Attending Unavailable Yocasta, Myron L. Admitting Unavailable Ycoasta, MSN, 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PINSETTER MECHANIC AUTOMATIC Myron L. Admitting U navailable Yocasta, MSN, 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PINSETTER MECHANIC AUTOMATIC Myron L. Attending U navailable Whit Simms H Attending Unavailable Abisai Kaur Attending Unavailable Abisai Kaur Admitting Unavailable Othman, Mahmoud Consulting Unavailable Othman, Mahmoud Consulting Unavailable Othman, Mahmoud Consulting Unavailable Yocasta, Myron L. Attending Unavailable Yocasta, Myron L. Admitting Unavailable Yocasta, Myron L. Attending Unavailable Yocasta, Myron L. Attending Unavailable Yocasta, Myron L. Attending Unavailable Yocasta, Myron L. Attending Unavailable Rick Hernandez Attending Unavailable NONE, XXXX Referring Unavailable Yocasta, Myron L. Attending Unavailable Yocasta, Myron L. Admitting Unavailable Yocasta, Myron L. Admitting Unavailable Yocasta, Myron L. Attending Unavailable Yocasta, Myron L. Admitting Unavailable Yocasta, Myron L. Attending Unavailable Yocasta, Myron L. Attending Unavailable Yocasta, Myron L. Attending Unavailable Yocasta, MSN, 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PINSETTER MECHANIC AUTOMATIC Myron L. Admitting U navailable Yocasta, MSN, 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PINSETTER MECHANIC AUTOMATIC Myron L. Attending U navailable Yocasta, Myron L. Admitting Unavailable Yocasta, Myron L. Attending Unavailable Yocasta, Myron L. Referring Unavailable Abisai Kaur Attending Unavailable Abisai Kaur Admitting Unavailable Oneal Newman Attending Unavailable Coco DEAN Attending Unavailabl e AVITA OUTSIDE ORDER, OTHER Referring Unava ilable Giedraitis , Andrius Hunt Attending Unavailable Giedraitis , Andrius Vmat Attending Unavailable Giedraitis , Andrius Vytbrant Attending Unavailable Giedraitis , Andrius Vytbrant Attending Unavailable Giedraitis , Andrius Hunt Attending Unavailable Yocasta, Myron L. Admitting Unavailable Yocasta, Myron L. Attending Unavailable Yocasta, Myron LFranco Admitting Unavailable Yocasta, Myron L. Attending Unavailable Yocasta, MSN, 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PINSETTER MECHANIC AUTOMATIC Myron Hamilton Attending U AISHA Peacock Attending Unavailable NONE, XXXX Referring Unavailable Oneal Newman Attending Unavailable Allergies Allergy Classification Reported Allergen(s) Allergy Type Date of Onset Reaction(s) Facility amLODIPine (1 source) amLODIPine; Translations: [amlodipine] Drug Allergy Leg Edema [facility] Angiotensin Converting Enzyme (DESMOND) Inhibitors (1 source) Lisinopril; Translations: [lisinopril] Drug Allergy Persistent cough (finding), Tongue swelling (finding) [facility] metFORMIN (1 source) metFORMIN; Translations: [metformin] Drug Allergy Diarrhea (finding) [facility] (20 sources) amLODIPine; Translations: [amlodipine] Drug Allergy 5 Leg Edema [facility] (20 sources) Lisinopril; Translations: [lisinopril] Drug Allergy Persistent cough (finding), Tongue swelling (finding) [facility] (20 sources) metFORMIN; Translations: [metformin] Drug Allergy 5 Diarrhea (finding), Diarrhea [facility] (13 sources) No Known Medication Allergies; Translations: [No Known Medication Allergies] Propensity to adverse reactions (disorder) [facility] Repository Medications Current Medications Medication Drug Class(es) Dates Sig (Normalized) Sig (Original) 0.25 MG, 0.5 MG Dose 3 ML semaglutide 0.68 MG/ML Pen Injector [Ozempic] (4 sources) Start: 07-18-2024 inject 0.5 mg by subcutaneous injection every week Ozempic 2 mg/3 mL (0.25 mg or 0.5 mg dose) subcutaneous solution 0.5 mg, SubCutaneous, qWeek, # 2 EA, Refills(s) 0, Pharmacy: [facility] #[id number], 168, cm, 07/18/24 11:59:00 EST, Height/Length Dosing, 148.4, kg, 07/18/24 11:59:00 EST, Weight Dosing Start Date: 07/18/24 Status: Ordered Advair HFA 115 mcg-21 mcg/inh inhalation aerosol with adapter (1 source) Start: 01-29-2025 take 2 puff(s) by inhalation twice daily Advair HFA 115 mcg-21 mcg/inh inhalation aerosol with adapter 2 puff(s), Inhalation, BID, 8 gm, Refill(s) 1, [facility] #[id number], 168, cm, 01/29/25 8:19:00 EDT, Height/Length Dosing, 159, kg, 01/24/25 8:55:00 EDT, Weight Dosing Start Date: 01/29/25 Status: Ordered Quantity: 8.0 Unit: g Repeat number: 2 Indications: Moderate persistent asthma, uncomplicated; albuterol 0.83 mg/ml inhalation solution (20 sources) beta2-Adrenergic Agonist Start: 10-11-2023 take 2.5 mg by inhalation every six hours albuterol 0.083% Inh Rochelle 3 mL 2.5 mg, 3 mL, Inhalation, q6hr Shortness of breath or wheezing, 100 EA, Refill(s) 1, [facility] #[id number], 168, cm, 10/11/23 14:32:00 EDT, Height/Length Dosing, 160.2, kg, 10/11/23 14:32:00 EDT, Weight Dosing Start Date: 10/11/23 Status: Ordered Start: 05-21-2021 albuterol (PRO VENTIL) nebulizer solution 2.5 mg Start: 03-17-2020 albuterol (PRO VENTIL) nebulizer solution 2.5 mg Start: 09-07-2019 albuterol (PRO VENTIL) nebulizer solution 2.5 mg take 2 puff(s) by in halation every four hours as needed for wheezing Albuterol 108 (90 Base) MCG/ACT Aero Soln inhaler Inhale 2 puffs every 4 hours as needed for Wheezing. Active take 2 puff(s) by in halation every four hours as needed for wheezing albuterol sulfate HFA 108 (90 Base) MCG/ACT inhaler Inhale 2 puffs into the lungs every 4 hours as needed for Wheezing 0 Active Albuterol (Eqv-Ventolin HFA) 90 mcg/inh inhalation aerosol (10 sources) Start: 12-29-2024 take 2 puff(s) by inhalation every six hours Albuterol (Eqv-Ventolin HFA) 90 mcg/inh inhalation aerosol 2 puff(s), Inhalation, q6hr Shortness of breath or wheezing, 6.7 gm, Refill(s) 1, [facility] #[id number], 168, cm, 12/27/24 10:40:00 EDT, Height/Length Dosing, 165.6, kg, 12/27/24 10:40:00 EDT, Weight Dosing Start Date: 12/29/24 Status: Ordered Quantity: 6.7 Unit: g Repeat number: 2 Indications: Chronic obstructive pulmonary disease with (acute) exacerbation; Start: 11-27-2024 take 2 puff(s) by in halation every six hours Albuterol (Eqv-Ventolin HFA) 90 mcg/inh inhalation aerosol 2 puff(s), Inhalation, q6hr Shortness of breath or wheezing, 6.7 gm, Refill(s) 3, [facility] #[id number], 168, cm, 11/27/24 14:20:00 EDT, Height/Length Dosing, 159.8, kg, 11/27/24 14:20:00 EDT, Weight Dosing Start Date: 11/27/24 Status: Ordered Quantity: 6.7 Unit: g Repeat number: 4 Alcohol wipes (20 sources) Start: 04-13-2022 Alcohol wipes Alcohol wipes, See Instructions, 100 EA, 3, Use to check BS daily dx E11.9, [facility] #[id number], Supply, 163, cm, 12/30/21 11:09:00 EDT, Height/Length Dosing, 154, kg, 12/30/21 11:09:00 EDT, Weight Dosing Start Date: 04/13/22 Status: Ordered Quantity: 100.0 Unit: EA Repeat number: 4 Start: 04-13-2022 Alcohol wipes Alcohol wipes, See Instructions, 100 EA, 3, Use to check BS daily dx E11.9, [facility] #[id number], Supply, 163, cm, 12/30/21 11:09:00 EDT, Height/Length Dosing, 154, kg, 12/30/21 11:09:00 EDT, Weight Dosing Start Date: 10/11/22 Status: Ordered Start: 06-03-2021 Alcohol wipes Alcohol wipes, See Instructions, 300 EA, 3, Use to check BS TID and PRN dx E11.9, [facility], 170, cm, 05/27/21 8:31:00 EST, Height/Length Dosing, 157.8, kg, 05/27/21 8:31:00 EST, Weight Dosing Start Date: 06/03/21 Status: Ordered ARIPiprazole 5 mg oral tablet (20 sources) Atypical Antipsychotic Start: 02-22-2024 take 1 tablet by mouth once daily Abilify 5 mg Tab 5 mg = 1 tab(s), Oral, Daily, # 90 tab(s), Refills(s) 4, Pharmacy: [facility] #[id number], 167, cm, 02/22/24 13:09:00 EDT, Height/Length Dosing, 137, kg, 02/22/24 13:09:00 EDT, Weight Dosing Start Date: 05/07/24 Status: Ordered Quantity: 90.0 Unit: tab(s) Repeat number: 5 Start: 01-19-2024 take 1 tablet by manish th once daily Abilify 2 mg Tab 2 mg = 1 tab(s), Oral, Daily, # 90 tab(s), Refills(s) 3, Pharmacy: [facility] #[id number], 167.6, cm, 12/23/23 10:59:00 EDT, Height/Length Dosing, 136, kg, 12/23/23 10:59:00 EDT, Weight Dosing Start Date: 01/19/24 Status: Ordered Start: 12-30-2021 take 1 tablet by manish th once daily Abilify 2 mg Tab 2 mg = 1 tab(s), Oral, Daily, # 90 tab(s), Refills(s) 3, Pharmacy: [facility] #[id number], 167, cm, 01/11/23 11:15:00 EDT, Height/Length Dosing, 138, kg, 01/11/23 11:15:00 EDT, Weight Dosing Start Date: 01/14/23 Status: Ordered ARIPiprazole (AB ILIFY PO) Abilify 0 Active atorvastatin 80 mg oral tablet (20 sources) HMG-CoA Reductase Inhibitor take 1 tablet by mouth once daily atorvastatin 80 MG tablet Take 1 tablet by mouth Every night. Active azithromycin 250 mg oral tablet (1 source) Macrolide Antimicrobial Start: 2024 End: 2024 take 1 tablet by mouth once daily azithromycin 250 mg Tab 250 mg = 1 tab(s), Oral, Daily, X 3 day(s), # 3 tab(s), Refills(s) 0, Pharmacy: [facility] #[id number], 168, cm, 12/27/24 10:40:00 EDT, Height/Length Dosing, 165.6, kg, 12/27/24 10:40:00 EDT, Weight Dosing Start Date: 12/29/24 Stop Date: 01/01/25 Status: Ordered Quantity: 3.0 Unit: tab(s) Repeat number: 1 Indications: Chronic obstructive pulmonary disease with (acute) exacerbation; Blood Pressure Kit - XL Cuff (1 source) Start: 2019 Blood Pressure Kit - XL Cuff Blood Pressure Kit - XL Cuff, See Instructions, 1 EA, 0, Use at home daily, [facility] #16, Supply, 170, cm, 10/02/19 13:41:00 EDT, Height/Length Measured, 156, kg, 10/02/19 13:41:00 EDT, Weight Measured Start Date: 10/02/19 Status: Ordered 24 hr buPROPion hydrochloride 150 mg extended release oral tablet (1 source) Aminoketone Start: 2024 take 1 tablet by mouth every twenty-four hours buPROPion 150 mg/24 hours XL Tab 150 mg = 1 tab(s), Oral, q24hr, # 30 tab(s), Refills(s) 0, Pharmacy: [facility] #16, 168, cm, 02/04/25 13:39:00 EDT, Height/Length Dosing, 155.1, kg, 02/04/25 13:39:00 EDT, Weight Dosing Start Date: 02/04/25 Status: Ordered Quantity: 30.0 Unit: tab(s) Repeat number: 1 calcium chloride 0.0014 meq/ml / potassium chloride 0.004 meq/ml / sodium chloride 0.103 meq/ml / sodium lactate 0.028 meq/ml injectable solution (2 sources) Start: 2019 End: 2019 lactated ringers infusion celecoxib 200 mg oral capsule (3 sources) Nonsteroidal Anti-inflammatory Drug Start: 2022 take 1 capsule by mouth twice daily as needed for pain CeleBREX 200 mg Cap 200 mg = 1 cap(s), Oral, BID, PRN as needed for pain, with food, # 60 cap(s), Refills(s) 0, Pharmacy: [facility] #[id number], 167, cm, 05/09/23 8:15:00 EST, Height/Length Dosing, 145.6, kg, 05/09/23 8:15:00 EST, Weight Dosing Start Date: 05/09/23 Status: Ordered cephalexin 500 mg oral capsule (4 sources) Cephalosporin Antibacterial Start: 2024 End: 2024 take 1 capsule by mouth four times daily cephalexin 500 mg Cap 500 mg = 1 cap(s), Oral, QID, X 8 day(s), # 32 cap(s), Refills(s) 0, Pharmacy: [facility] #16, 168, cm, 12/27/24 10:40:00 EDT, Height/Length Dosing, 165.6, kg, 12/27/24 10:40:00 EDT, Weight Dosing Start Date: 12/29/24 Stop Date: 01/06/25 Status: Ordered Quantity: 32.0 Unit: cap(s) Repeat number: 1 Indications: Cellulitis of unspecified part of limb; cholecalciferol 0.125 mg oral capsule (7 sources) Vitamin D Start: 2022 take 1 capsule by mouth once daily at mealtime D 5000 125 MCG (5000 UT) CAPS capsule take 1 capsule by mouth once daily with food 0 10/14/2022 Active dicyclomine hydrochloride 10 mg oral capsule (7 sources) Anticholinergic Start: 2024 take 2 capsules by mouth four times daily as needed for pain Bentyl 10 mg Cap 20 mg = 2 cap(s), Oral, QID, PRN Pain, # 21 cap(s), Refills(s) 0, Pharmacy: [facility] #[id number], 168, cm, 07/11/24 11:16:00 EST, Height/Length Dosing, 152.8, kg, 07/11/24 11:21:00 EST, Weight Dosing Start Date: 07/11/24 Status: Ordered 0.5 ML dulaglutide 6 MG/ML Auto-Injector [Trulicity] (20 sources) GLP-1 Receptor Agonist Start: 2024 inject 3 mg by subcutaneous injection every week Trulicity Pen 3 mg/0.5 mL subcutaneous solution See Instructions, ADMINISTER 3 MG UNDER THE SKIN EVERY WEEK, # 2 mL, Refills(s) 0, Pharmacy: [facility] #[id number], 168, cm, 01/29/25 8:19:00 EDT, Height/Length Dosing, 159, kg, 01/24/25 8:55:00 EDT, Weight Dosing Start Date: 01/29/25 Status: Ordered Quantity: 2.0 Unit: mL Repeat number: 1 Start: 12-17-2024 inject 3 mg by subcu taneous injection every week Trulicity Pen 3 mg/0.5 mL subcutaneous solution See Instructions, ADMINISTER 3 MG UNDER THE SKIN EVERY WEEK, # 2 mL, Refills(s) 0, Pharmacy: [facility] #[id number], 168, cm, 11/27/24 14:20:00 EDT, Height/Length Dosing, 159.8, kg, 11/27/24 14:20:00 EDT, Weight Dosing Start Date: 12/17/24 Status: Ordered Quantity: 2.0 Unit: mL Repeat number: 1 Start: 10-01-2024 inject 3 mg by subcu taneous injection every week Trulicity Pen 3 mg/0.5 mL subcutaneous solution 3 mg, SubCutaneous, qWeek, # 2 mL, Refills(s) 2, Pharmacy: [facility] #[id number], 168, cm, 09/12/24 13:00:00 EDT, Height/Length Dosing, 154.1, kg, 09/12/24 13:00:00 EDT, Weight Dosing Start Date: 10/01/24 Status: Ordered Quantity: 2.0 Unit: mL Repeat number: 3 Indications: Type 2 diabetes mellitus with other specified complication; Start: 02-22-2024 inject 3 mg by subcu taneous injection every week Trulicity Pen 3 mg/0.5 mL subcutaneous solution 3 mg, SubCutaneous, qWeek, # 4 EA, Refills(s) 2, Pharmacy: [facility] #[id number], 167, cm, 02/22/24 13:09:00 EDT, Height/Length Dosing, 137, kg, 02/22/24 13:09:00 EDT, Weight Dosing Start Date: 02/22/24 Status: Ordered Start: 01-17-2024 Trulicity Pen 1.5 mg/0.5 mL subcutaneous solution See Instructions, inject 1 AND 1/2 milligrams subcutaneously weekly, # 2 mL, Refills(s) 0, Pharmacy: [facility] #[id number], 167.6, cm, 12/23/23 10:59:00 EDT, Height/Length Dosing, 136, kg, 12/23/23 10:59:00 EDT, Weight Dosing Start Date: 01/17/24 Status: Ordered Start: 12-22-2023 inject 1.5 mg by sub cutaneous injection every week Trulicity Pen 1.5 mg/0.5 mL subcutaneous solution 1.5 mg, SubCutaneous, qWeek, # 4 EA, Refills(s) 0, Pharmacy: [facility] #[id number], 168, cm, 12/06/23 14:55:00 EDT, Height/Length Dosing, 139, kg, 12/06/23 14:55:00 EDT, Weight Dosing Start Date: 12/22/23 Status: Ordered Start: 10-11-2023 inject 1.5 mg by sub cutaneous injection every week Trulicity Pen 1.5 mg/0.5 mL subcutaneous solution 1.5 mg, SubCutaneous, qWeek, # 4 EA, Refills(s) 0, Pharmacy: [facility] #[id number], 168, cm, 10/11/23 14:32:00 EDT, Height/Length Dosing, 160.2, kg, 10/11/23 14:32:00 EDT, Weight Dosing Start Date: 10/11/23 Status: Ordered Start: 09-13-2022 Dulaglutide 0. 75 MG/0.5ML SOPN Inject 0.75 mg into the skin 0 09/13/2022 Active empagliflozin 10 mg oral tablet (20 sources) Sodium-Glucose Cotransporter 2 Inhibitor Start: 01-29-2025 take 1 tablet by mouth once daily Jardiance 10 mg oral tablet 10 mg, Oral, Daily, # 90 tab(s), Refills(s) 4, Pharmacy: [facility] #16, 168, cm, 01/29/25 8:19:00 EDT, Height/Length Dosing, 159, kg, 01/24/25 8:55:00 EDT, Weight Dosing Start Date: 01/29/25 Status: Ordered Quantity: 90.0 Unit: tab(s) Repeat number: 5 Start: 09-22-2022 take 1 tablet by manish once daily Jardiance 10 mg oral tablet 10 mg, Oral, Daily, # 90 tab(s), Refills(s) 4, Pharmacy: [facility] #[id number], 168, cm, 09/12/24 13:00:00 EDT, Height/Length Dosing, 154.1, kg, 09/12/24 13:00:00 EDT, Weight Dosing Start Date: 10/26/24 Status: Ordered Quantity: 90.0 Unit: tab(s) Repeat number: 5 FLUoxetine 20 mg oral capsule (20 sources) Serotonin Reuptake Inhibitor Start: 01-29-2025 take 2 capsules by mouth once daily FLUoxetine 20 mg Cap 40 mg = 2 cap(s), Oral, Daily, # 180 cap(s), Refills(s) 4, Pharmacy: [facility] #[id number], 168, cm, 01/29/25 8:19:00 EDT, Height/Length Dosing, 159, kg, 01/24/25 8:55:00 EDT, Weight Dosing Start Date: 01/29/25 Status: Ordered Quantity: 180.0 Unit: cap(s) Repeat number: 5 Start: 09-10-2022 take 40 mg by mouth once daily Fluoxetine Active 40 MG PO Daily September 10, 2022 1:00am Start: 04-07-2021 take 2 capsules by m outh once daily FLUoxetine 20 mg Cap 40 mg = 2 cap(s), Oral, Daily, # 180 cap(s), Refills(s) 4, Pharmacy: [facility] #[id number], 168, cm, 09/12/24 13:00:00 EDT, Height/Length Dosing, 154.1, kg, 09/12/24 13:00:00 EDT, Weight Dosing Start Date: 10/01/24 Status: Ordered Quantity: 180.0 Unit: cap(s) Repeat number: 5 take 1 capsule by mo uth once daily FLUoxetine (PROZAC) 40 MG capsule Take 1 capsule by mouth nightly 0 Active fluticasone / salmeterol (20 sources) Corticosteroid, beta2-Adrenergic Agonist Start: 11-27-2024 End: 12-27-2024 take 1 puff(s) by inhalation twice daily Advair Diskus 250 mcg-50 mcg inhalation powder 1 puff(s), Inhalation, BID for 30 day(s), 60 blister(s), Refill(s) 0, [facility] #[id number], 168, cm, 11/27/24 14:20:00 EDT, Height/Length Dosing, 159.8, kg, 11/27/24 14:20:00 EDT, Weight Dosing Start Date: 11/27/24 Stop Date: 12/27/24 Status: Ordered Quantity: 60.0 Unit: blister(s) Repeat number: 1 Start: 09-16-2022 Fluticasone-Sa lmeterol (ADVAIR DISKUS IN) See Instructions, Refill(s) 0 0 09/16/2022 Active Start: 09-16-2022 Advair Diskus 100 mcg-50 mcg inhalation powder See Instructions, Refill(s) 0 Start Date: 09/16/22 Status: Ordered Start: 09-14-2022 Fluticasone Pr opion-Salmeterol (Advair Diskus) 100-50 mcg/dose blister with device Active 1 INH INHALATION Twice daily 60 September 14, 2022 12:00am furosemide 40 mg oral tablet (20 sources) Loop Diuretic Start: 01-01-2025 take 1 tablet by mouth twice daily furosemide 40 mg Tab 40 mg = 1 tab(s), Oral, BID, # 60 tab(s), Refills(s) 2, Pharmacy: [facility] #[id number], 168, cm, 01/01/25 13:49:00 EDT, Height/Length Dosing, 161.7, kg, 01/01/25 13:49:00 EDT, Weight Dosing Start Date: 01/01/25 Status: Ordered Quantity: 60.0 Unit: tab(s) Repeat number: 3 Indications: Unspecified diastolic (congestive) heart failure; Localized edema; Start: 12-29-2024 take 1 tablet by manish twice daily furosemide 40 mg Tab 40 mg = 1 tab(s), Oral, BID, # 60 tab(s), Refills(s) 0, Pharmacy: [facility] #16, 168, cm, 12/27/24 10:40:00 EDT, Height/Length Dosing, 165.6, kg, 12/27/24 10:40:00 EDT, Weight Dosing Start Date: 12/29/24 Status: Ordered Quantity: 60.0 Unit: tab(s) Repeat number: 1 Indications: Localized edema; Acute on chronic diastolic (congestive) heart failure; Start: 06-05-2024 take 1 tablet by manish once daily furosemide 40 mg Tab 40 mg = 1 tab(s), Oral, Daily, # 90 tab(s), Refills(s) 1, Pharmacy: [facility] #[id number], 168, cm, 06/05/24 13:03:00 EST, Height/Length Dosing, 145.9, kg, 06/05/24 13:03:00 EST, Weight Dosing Start Date: 06/05/24 Status: Ordered Quantity: 90.0 Unit: tab(s) Repeat number: 2 Indications: Localized edema; Start: 01-31-2024 take 1 tablet by [facility] once daily furosemide 40 mg Tab 40 mg = 1 tab(s), Oral, Daily, # 90 tab(s), Refills(s) 1, Pharmacy: [facility] #[id number], 167.6, cm, 12/23/23 10:59:00 EDT, Height/Length Dosing, 136, kg, 12/23/23 10:59:00 EDT, Weight Dosing Start Date: 01/31/24 Status: Ordered Start: 08-10-2023 take 1 tablet by [facility] once daily furosemide 40 mg Tab 40 mg = 1 tab(s), Oral, Daily, # 90 tab(s), Refills(s) 1, Pharmacy: [facility] #[id number], 167, cm, 08/10/23 14:24:00 EST, Height/Length Dosing, 151.4, kg, 08/10/23 14:24:00 EST, Weight Dosing Start Date: 08/10/23 Status: Ordered Start: 09-22-2022 Lasix 20 mg Ta b 20 mg = 1 tab(s), Oral, As Directed, # 30 tab(s), Refills(s) 1, Pharmacy: [facility] #[id number], 167, cm, 09/29/22 11:37:00 EDT, Height/Length Dosing, 149.2, kg, 09/29/22 11:37:00 EDT, Weight Dosing Start Date: 09/29/22 Status: Ordered Start: 09-16-2022 take 1 tablet by manish once daily furosemide 40 mg Tab 40 mg = 1 tab(s), Oral, Daily, # 90 tab(s), Refills(s) 1, Pharmacy: [facility] #[id number], 167, cm, 11/26/22 13:06:00 EDT, Height/Length Dosing, 140, kg, 11/26/22 13:06:00 EDT, Weight Dosing Start Date: 12/27/22 Status: Ordered Start: 09-14-2022 take 1 tablet by manish once daily Furosemide (Lasix) 40 mg tablet Active 40 MG PO Daily September 14, 2022 12:00am Start: 08-20-2022 take 2 tablets by mo [facility] once daily Lasix 20 mg Tab 40 mg = 2 tab(s), Oral, Daily, Take with potassium supplment., # 180 tab(s), Refills(s) 5, Pharmacy: [facility] #[id number], 163, cm, 08/20/22 14:05:00 EST, Height/Length Dosing, 155, kg, 08/20/22 14:05:00 EST, Weight Dosing Start Date: 08/20/22 Status: Ordered Start: 07-27-2021 End: 09-14-2022 take 20 mg by mouth once daily Furosemide Discontinued 20 MG PO Daily September 10, 2022 1:00am September 14, 2022 11:24am gabapentin 300 mg oral capsule (20 sources) Anti-epileptic Agent Start: 02-22-2024 gabapenti n 300 mg Cap 300 mg = 1 cap(s), TID, Refills(s) 0 Start Date: 02/22/24 Status: Ordered Repeat number: 1 glipiZIDE er 2.5 mg 24 hr extended release oral tablet (20 sources) Sulfonylurea Start: 11-27-2024 take 1 tablet by mouth once daily glipiZIDE 2.5 mg ER Tab 2.5 mg = 1 tab(s), Oral, Daily, # 90 tab(s), Refills(s) 1, Pharmacy: [facility] #[id number], 168, cm, 11/27/24 14:20:00 EDT, Height/Length Dosing, 159.8, kg, 11/27/24 14:20:00 EDT, Weight Dosing Start Date: 11/27/24 Status: Ordered Quantity: 90.0 Unit: tab(s) Repeat number: 2 Start: 09-23-2023 take 1 tablet by [facility] once daily glipiZIDE 2.5 MG tablet XL Take 1 tablet by mouth daily. 12/20/2023 Active Start: 10-08-2022 take 1 tablet by manish th once daily glipiZIDE (GLUCOTROL XL) 2.5 MG extended release tablet Take 1 tablet by mouth daily 0 10/08/2022 Active Start: 04-13-2022 take 1 tablet by manish th once daily glipiZIDE 2.5 mg ER Tab 2.5 mg = 1 tab(s), Oral, Daily, # 90 tab(s), Refills(s) 1, [facility]: [id number], 163, cm, 12/30/21 11:09:00 EDT, Height/Length Dosing, 154, kg, 12/30/21 11:09:00 EDT, Weight Dosing Start Date: 04/13/22 Status: Ordered Start: 12-30-2021 take 1 tablet by manish th once daily glipiZIDE 2.5 mg ER Tab 2.5 mg = 1 tab(s), Oral, Daily, # 90 tab(s), Refills(s) 1, [facility]: [facility], 163, cm, 12/30/21 11:09:00 EDT, Height/Length Dosing, 154, kg, 12/30/21 11:09:00 EDT, Weight Dosing Start Date: 12/30/21 Status: Ordered Glucometer (20 sources) Start: 06-03-2021 Glucometer Glu cometer, See Instructions, 1 EA, 0, Glucometer to test BS TID and PRN dx E11.9, [facility] [address] , Supply, 170, cm, 05/27/21 8:31:00 EST, Height/Length Dosing, 157.8, kg, 05/27/21 8:31:00 EST, Weight Dosing Start Date: 06/03/21 Status: Ordered Quantity: 1.0 Unit: EA Repeat number: 1 Start: 06-03-2021 Glucometer Glu cometer, See Instructions, 1 EA, 0, Glucometer to test BS TID and PRN dx E11.9, [facility] [address], Supply, 170, cm, 05/27/21 8:31:00 EST, Height/Length Dosing, 157.8, kg, 05/27/21 8:31:00 EST, Weight Dosing Start Date: 06/03/21 Status: Ordered Glucose (1 source) Start: 06-03-2021 Glucose Kit Glucose Kit, See Instructions, 1 EA, 0, Glucose meter. Include autolet, matching test strips, lancets, & alcohol wipes, #300 or as allowed by insurance; Test TID and PRN. DX: E11.9, [facility] [address] , Supply, 170, cm, 05/27/21 8:31:00 EST, Height... Start Date: 06/03/21 Status: Ordered hydroCHLOROthiazide 50 mg oral tablet (20 sources) Thiazide Diuretic Start: 04-13-2022 take 1 tablet by mouth once daily hydrochlorothiazide 50 mg Tab 50 mg = 1 tab(s), Oral, Daily, # 90 tab(s), Refills(s) 1, [facility]acy: [facility] #[id number], 163, cm, 12/30/21 11:09:00 EDT, Height/Length Dosing, 154, kg, 12/30/21 11:09:00 EDT, Weight Dosing Start Date: 04/13/22 Status: Ordered Start: 08-03-2021 take 1 tablet by manish th once daily hydrochlorothiazide 50 mg Tab 50 mg = 1 tab(s), Oral, Daily, # 30 tab(s), Refills(s) 5, Pharmacy: [facility] [address] , 170, cm, 07/28/21 10:34:00 EST, Height/Length Dosing, 152, kg, 07/28/21 10:34:00 EST, Weight Dosing Start Date: 08/03/21 Status: Ordered take 2 tablets by mo [facility] once daily hydroCHLOROthiazide (HYDRODIURIL) 25 MG tablet Take 2 tablets by mouth daily 0 Active take 1 tablet by [facility] once daily hydroCHLOROthiazide (HYDRODIURIL) 25 MG tablet Take 25 mg by mouth daily 0 Active icosapent ethyl 1000 mg oral capsule (1 source) Start: 05-29-2021 Vascepa 1 g oral capsule 2 gram = 2 cap(s), Oral, BID, # 120 cap(s), Refills(s) 5, Pharmacy: [email or web address], 170, cm, 05/27/21 8:31:00 EST, Height/Length Dosing, 157.8, kg, 05/27/21 8:31:00 EST, Weight Dosing Start Date: 05/29/21 Status: Ordered loratadine 10 mg oral tablet (20 sources) Start: 09-23-2020 take 1 tablet by mouth once daily as needed loratadine 10 mg Tab 10 mg = 1 tab(s), Oral, Daily, PRN as needed for allergy symptoms, # 90 tab(s), Refills(s) 3, Pharmacy: [facility] #[id number], 163, cm, 12/30/21 11:09:00 EDT, Height/Length Dosing, [...] meals, # 60 tab(s), Refills(s) 2, Pharmacy: [facility] [place] , 170, cm, 07/28/21 10:34:00 EST, Height/Length Dosing, 152, kg, 07/28/21 10:34:00 EST, Weight Dosing Start Date: 08/24/21 Status: Ordered montelukast 10 mg oral tablet (20 sources) Leukotriene Receptor Antagonist Start: 10-16-2019 take 1 tablet by mouth once daily in the evening Singulair 10 mg Tab 10 mg = 1 tab(s), Oral, qPM, # 30 tab(s), Refills(s) 2, Pharmacy: [facility], 170, cm, 10/16/19 9:09:00 EDT, Height/Length Measured, 154.3, kg, 10/16/19 9:09:00 EDT, Weight Measured Start Date: 10/16/19 Status: Ordered 24 hr nicotine 0.875 mg/hr transdermal system (9 sources) Cholinergic Nicotinic Agonist Start: 01-02-2025 End: 01-23-2025 nicotine 21 mg/24 hr Transderm ER Film 1 patch(es), Topical, q24hr for 21 day(s), 21 patch(es), Refill(s) 0, wear only one patch at a time, for 24 hours only, [facility], 168, cm, 01/02/25 13:43:00 EDT, Height/Length Dosing, 159, kg, 01/02/25 13:43:00 EDT, Weight Dosing Start Date: 01/02/25 Stop Date: 01/23/25 Status: Ordered Quantity: 21.0 Unit: patch(es) Repeat number: 1 Start: 09-22-2022 End: 10-06-2022 nicotine 21 mg/24 hr Transde rm ER Film 1 patch(es), Topical, Daily for 14 day(s), 14 EA, Refill(s) 0, [facility] #[id number], 167, cm, 09/22/22 8:24:00 EDT, Height/Length Dosing, 157.4, kg, 09/22/22 8:24:00 EDT, Weight Dosing Start Date: 09/22/22 Stop Date: 10/06/22 Status: Ordered nystatin 100 unt/mg topical powder (3 sources) Polyene Antifungal Start: 01-02-2025 nystatin Top 100,000 units/g Pwdr 1 beto, Topical, BID, 15 gram, Refill(s) 1, [facility] #16, 168, cm, 01/02/25 13:43:00 EDT, Height/Length Dosing, 159, kg, 01/02/25 13:43:00 EDT, Weight Dosing Start Date: 01/02/25 Status: Ordered Quantity: 15.0 Unit: g Repeat number: 2 omeprazole 20 mg delayed release oral capsule (17 sources) Proton Pump Inhibitor take 1 capsule by mouth once daily omeprazole (PRILOSEC) 20 MG delayed release capsule Take 1 capsule by mouth daily 0 Active pantoprazole 40 mg delayed release oral tablet (20 sources) Proton Pump Inhibitor Start: 01-15-2025 take 1 tablet by mouth once daily Pantoprazole [address] Tab 40 mg = 1 tab(s), Oral, Daily, # 90 tab(s), Refills(s) 4, Pharmacy: [facility]16, 168, cm, 01/02/25 13:43:00 EDT, Height/Length Dosing, 159, kg, 01/02/25 13:43:00 EDT, Weight Dosing Start Date: 01/15/25 Status: Ordered Quantity: 90.0 Unit: tab(s) Repeat number: 5 Start: 05-07-2024 take 1 tablet by manish th once daily Pantoprazole [address] Tab 40 mg = 1 tab(s), Oral, Daily, # 90 tab(s), Refills(s) 3, Pharmacy: [facility] #[id number], 167, cm, 02/22/24 13:09:00 EDT, Height/Length Dosing, 137, kg, 02/22/24 13:09:00 EDT, Weight Dosing Start Date: 05/07/24 Status: Ordered Quantity: 90.0 Unit: tab(s) Repeat number: 4 Start: 02-20-2024 take 1 tablet by manish th once daily Pantoprazole [address] Tab 40 mg = 1 tab(s), Oral, Daily, # 90 tab(s), Refills(s) 3, Pharmacy: [facility][id number], 167.6, cm, 12/23/23 10:59:00 EDT, Height/Length Dosing, 136, kg, 12/23/23 10:59:00 EDT, Weight Dosing Start Date: 02/20/24 Status: Ordered Start: 09-01-2019 take 1 tablet by manish th once daily Pantoprazole [address] Tab 40 mg = 1 tab(s), Oral, Daily, # 90 tab(s), Refills(s) 3, [facility]acy: [facility] #[id number], 167, cm, 01/11/23 11:15:00 EDT, Height/Length Dosing, 138, kg, 01/11/23 11:15:00 EDT, Weight Dosing Start Date: 02/10/23 Status: Ordered rosuvastatin calcium 40 mg oral tablet (20 sources) HMG-CoA Reductase Inhibitor Start: 11-27-2024 take 1 tablet by mouth once daily Crestor 40 mg Tab 40 mg = 1 tab(s), Oral, Daily, # 90 tab(s), Refills(s) 3, Pharmacy: [facility] #[id number], 168, cm, 11/27/24 14:20:00 EDT, Height/Length Dosing, 159.8, kg, 11/27/24 14:20:00 EDT, Weight Dosing Start Date: 11/27/24 Status: Ordered Quantity: 90.0 Unit: tab(s) Repeat number: 4 Indications: Mixed hyperlipidemia; Start: 06-05-2024 take 1 tablet by manish th once daily Crestor 40 MG tablet Take 1 tablet by mouth daily. 06/05/2024 Active Start: 06-28-2023 take 1 tablet by manish th once daily Crestor 40 mg Tab 40 mg = 1 tab(s), Oral, Daily, # 90 tab(s), Refills(s) 3, Pharmacy: [facility] #[id number], 167, cm, 05/09/23 8:15:00 EST, Height/Length Dosing, 145.6, kg, 05/09/23 8:15:00 EST, Weight Dosing Start Date: 06/28/23 Status: Ordered Start: 10-08-2022 take 1 tablet by manish th once daily Crestor 40 mg Tab 40 mg = 1 tab(s), Oral, Daily, # 90 tab(s), Refills(s) 1, Pharmacy: [facility] #[id number], 167, cm, 09/29/22 11:37:00 EDT, Height/Length Dosing, 149.2, kg, 09/29/22 11:37:00 EDT, Weight Dosing Start Date: 10/08/22 Status: Ordered Start: 04-13-2022 take 1 tablet by manish th once daily Crestor 40 mg Tab 40 mg = 1 tab(s), Oral, Daily, # 90 tab(s), Refills(s) 1, Pharmacy: [facility] #[id number], 163, cm, 12/30/21 11:09:00 EDT, Height/Length Dosing, 154, kg, 12/30/21 11:09:00 EDT, Weight Dosing Start Date: 04/13/22 Status: Ordered Start: 12-30-2021 take 1 tablet by manish once daily Crestor 40 mg Tab 40 mg = 1 tab(s), Oral, Daily, # 30 tab(s), Refills(s) 5, Pharmacy: [facility], 163, cm, 12/30/21 11:09:00 EDT, Height/Length [...] oral tablet (20 sources) Aldosterone Antagonist Start: 01-15-2025 take 1 tablet by mouth once daily spironolactone 25 mg Tab 25 mg = 1 tab(s), Oral, Daily, # 90 tab(s), Refills(s) 4, Pharmacy: [facility] #16, 168, cm, 01/02/25 13:43:00 EDT, Height/Length Dosing, 159, kg, 01/02/25 13:43:00 EDT, Weight Dosing Start Date: 01/15/25 Status: Ordered Quantity: 90.0 Unit: tab(s) Repeat number: 5 Indications: Essential (primary) hypertension; Start: 06-05-2024 take 1 tablet by manish th once daily spironolactone 25 mg Tab 25 mg = 1 tab(s), Oral, Daily, # 90 tab(s), Refills(s) 1, Pharmacy: [facility] #[id number], 168, cm, 06/05/24 13:03:00 EST, Height/Length Dosing, 145.9, kg, 06/05/24 13:03:00 EST, Weight Dosing Start Date: 06/05/24 Status: Ordered Quantity: 90.0 Unit: tab(s) Repeat number: 2 Indications: Essential (primary) hypertension; Start: 12-14-2022 End: 04-08-2024 take 1 tablet by mouth once daily spironolactone 25 mg Tab 25 mg = 1 tab(s), Oral, Daily, X 90 day(s), # 90 tab(s), Refills(s) 1, Pharmacy: [facility] #[id number], 168, cm, 10/11/23 14:32:00 EDT, Height/Length Dosing, 160.2, kg, 10/11/23 14:32:00 EDT, Weight Dosing Start Date: 10/11/23 Stop Date: 04/08/24 Status: Ordered Start: 09-20-2022 take 1 tablet by manish th twice daily spironolactone 25 mg Tab 25 mg = 1 tab(s), Oral, BID, # 60 tab(s), Refills(s) 4, Pharmacy: [facility] #[id number], 163, cm, 09/06/22 11:28:00 EST, Height/Length Dosing, 154, kg, 09/06/22 11:28:00 EST, Weight Dosing Start Date: 09/20/22 Status: Ordered Start: 09-10-2022 take 25 mg by mouth twice daily Spironolactone Active 25 MG PO Twice daily September 10, 2022 1:00am Start: 08-23-2022 take 1 tablet by manish twice daily spironolactone 25 mg Tab 25 mg = 1 tab(s), Oral, BID, # 60 tab(s), Refills(s) 0, Pharmacy: [facility] #[id number], 163, cm, 08/20/22 14:05:00 EST, Height/Length Dosing, 155, kg, 08/20/22 14:05:00 EST, Weight Dosing Start Date: 08/23/22 Status: Ordered Symbicort 160/4.5 inhalation aerosol with adapter (5 sources) Start: 07-23-2022 Symbicort 160/ 4.5 inhalation aerosol with adapter 2 puff(s), Inhalation, BID, 1 EA, Refill(s) 5, rinse mouth and throat after use, [facility] #[id number], 163, cm, 12/30/21 11:09:00 EDT, Height/Length Dosing, 154, kg, 12/30/21 11:09:00 EDT, Weight Dosing Start Date: 07/23/22 Status: Ordered Start: 10-26-2021 take 2 puff(s) by in halation twice daily Symbicort 160/4.5 inhalation aerosol with adapter 2 puff(s), Inhalation, BID, 1 EA, Refill(s) 5, rinse mouth and throat after use, [facility], 170, cm, 07/28/21 10:34:00 EST, Height/Length Dosing, 152, kg, 07/28/21 10:34:00 EST, Weight Dosing Start Date: 10/26/21 Status: Ordered 60 actuat tiotropium 0.95816 mg/actuat inhalation spray (20 sources) Anticholinergic Start: 12-30-2021 take 2 puff(s) by inhalation once daily Spiriva Respimat 1.25 mcg/inh inhalation aerosol 2 puff(s), Inhalation, Daily, 3 EA, Refill(s) 3, [facility], 163, cm, 12/30/21 11:09:00 EDT, Height/Length Dosing, 154, kg, 12/30/21 11:09:00 EDT, Weight Dosing Start Date: 12/30/21 Status: Ordered tiotropium (SPIR JOHANN RESPIMAT) 1.25 MCG/ACT AERS inhaler Inhale 2 puffs into the lungs daily 0 Active tiZANidine 4 mg oral tablet (20 sources) Central alpha-2 Adrenergic Agonist Start: 05-09-2023 take 1 tablet by mouth every eight hours as needed for muscle spasms tiZANidine 4 mg Tab 4 mg = 1 tab(s), Oral, q8hr, PRN Spasm, # 30 tab(s), Refills(s) 0, Pharmacy: [facility] #[id number], 167, cm, 05/09/23 8:15:00 EST, Height/Length Dosing, 145.6, kg, 05/09/23 8:15:00 EST, Weight Dosing Start Date: 05/09/23 Status: Ordered Start: 04-26-2023 take 1 tablet by manish th every eight hours as needed for muscle spasms tiZANidine 4 mg Tab 4 mg = 1 tab(s), Oral, q8hr, PRN Spasm, # 20 tab(s), Refills(s) 0, Pharmacy: [facility] #[id number], 167, cm, 04/26/23 11:10:00 EDT, Height/Length Dosing, 141.8, kg, 04/26/23 11:10:00 EDT, Weight Dosing Start Date: 04/26/23 Status: Ordered traMADol hydrochloride 50 mg oral tablet (4 sources) Opioid Agonist Start: 01-09-2024 take 1 tablet by mouth every six hours as needed for pain traMADOL 50 mg Tab 50 mg = 1 tab(s), Oral, q6hr, PRN for pain, # 28 tab(s), Refills(s) 0, Pharmacy: [facility] #[id number], 167.6, cm, 12/23/23 10:59:00 EDT, Height/Length Dosing, 136, kg, 12/23/23 10:59:00 EDT, Weight Dosing Start Date: 01/09/24 Status: Ordered Start: 11-25-2023 take 1 tablet by manish th every six hours as needed for pain traMADOL 50 mg Tab 50 mg = 1 tab(s), Oral, q6hr, PRN for pain, # 28 tab(s), Refills(s) 0, Pharmacy: [facility] #[id number], 168, cm, 11/25/23 14:36:00 EDT, Height/Length Dosing, 141.8, kg, 11/25/23 14:36:00 EDT, Weight Dosing Start Date: 11/25/23 Status: Ordered traZODone hydrochloride 50 mg oral tablet (20 sources) Serotonin Reuptake Inhibitor Start: 10-11-2023 take 1 tablet by mouth once daily at bedtime traZODONE 50 mg Tab 50 mg = 1 tab(s), Oral, Once a day (at bedtime), # 30 tab(s), Refills(s) 0, Pharmacy: [facility] #[id number], 168, cm, 10/11/23 14:32:00 EDT, Height/Length Dosing, 160.2, kg, 10/11/23 14:32:00 EDT, Weight Dosing Start Date: 10/11/23 Status: Ordered Start: 08-10-2023 take 1 tablet by manish th once daily at bedtime traZODONE 50 mg Tab 50 mg = 1 tab(s), Oral, Once a day (at bedtime), # 30 tab(s), Refills(s) 0, Pharmacy: [facility] #[id number], 167, cm, 08/10/23 14:24:00 EST, Height/Length Dosing, 151.4, kg, 08/10/23 14:24:00 EST, Weight Dosing Start Date: 08/10/23 Status: Ordered Start: 10-20-2020 take 2 tablets by mo uth once daily at bedtime as needed traZODONE 150 mg Tab 300 mg = 2 tab(s), Oral, Once a day (at bedtime), PRN Insomnia, # 180 tab(s), Refills(s) 1, Pharmacy: [facility], 170, cm, 10/13/20 9:06:00 EDT, Height/Length Dosing, 153.3, kg, 10/13/20 9:06:00 EDT, Weight Dosing Start Date: 10/20/20 Status: Ordered take 1 tablet by manish th once daily as needed for sleep traZODone (DESYREL) 150 MG tablet Take 1 tablet by mouth nightly as needed for Sleep 0 Active take 2 tablets by mo uth once daily traZODone (DESYREL) 150 MG tablet Take 300 mg by mouth nightly 0 Active Trulicity 3 MG/0.5ML Solution Auto-injector (1 source) Start: 10-26-2024 inject 3 mg by subcutaneous injection every week Trulicity 3 MG/0.5ML Solution Auto-injector Inject 3 mg under the skin once a week. 10/26/2024 Active varenicline 1 mg oral tablet (16 sources) Partial Cholinergic Nicotinic Agonist Start: 10-18-2022 take 1 tablet by mouth twice daily after mealtime varenicline 1 mg oral tablet 1 mg = 1 tab(s), Oral, BID, after meals, # 60 tab(s), Refills(s) 4, Pharmacy: [facility] #[id number], 167.5, cm, 10/18/22 13:30:00 EDT, Height/Length Dosing, 147, kg, 10/18/22 13:30:00 EDT, Weight Dosing Start Date: 10/18/22 Status: Ordered Start: 10-18-2022 take 1 tablet by [facility] once daily, then take 1 tablet by mouth twice daily, then take 2 tablets by mouth twice daily varenicline 0.5 mg oral tablet See Instructions, 1 po daily x3 days then 1 po BID x4 days. Follow this with 1 mg BID prescription varenicline, # 11 tab(s), Refills(s) 0, Pharmacy: [facility] #[id number], 167.5, cm, 10/18/22 13:30:00 EDT, Height/Length Dosing, 147, kg, 10/18/22 13:30:00 EDT, Weight Dosing Start Date: 10/18/22 Status: Ordered Completed/Discontinued Medications Medication Drug Class(es) Dates Sig (Normalized) Sig (Original) Bariatric transfer bench shower chair w/back rest (1 source) Start: 01-28-2025 Bariatric transfer bench shower chair w/back rest Bariatric transfer bench shower chair w/back rest, See Instructions, 1 EA, 0, to be used in the shower, Supply Start Date: 01/28/25 Status: Ordered Quantity: 1.0 Unit: EA Repeat number: 1 Indications: Body mass index (BMI) 50.0-59.9, adult; Right heart failure, unspecified; Localized edema; 60 actuat budesonide 0.08 mg/actuat / formoterol [...] the lungs 2 times daily 0 Active fluconazole 150 mg oral tablet (3 sources) Azole Antifungal Start: 01-02-2025 Diflucan 150 mg Tab 150 mg = 1 tab(s), Oral, Once, one tablet now and repeat in 72 hours, # 2 tab(s), Refills(s) 0, Pharmacy: [facility] #16, 168, cm, 01/02/25 13:43:00 EDT, Height/Length Dosing, 159, kg, 01/02/25 13:43:00 EDT, Weight Dosing Start Date: 01/02/25 Status: Ordered Quantity: 2.0 Unit: tab(s) Repeat number: 1 iohexol (OMNIPAQUE 240) injection 20 mL (1 [...] 1 EA, 0, Nebulizer Machine, [facility] #[id number], Supply, 168, cm, 04/09/24 14:32:00 EDT, Height/Length Dosing, 160.2, kg, 10/11/23 14:32:00 EDT, Weight Dosing Start Date: 10/11/23 Status: Ordered Quantity: 1.0 Unit: EA Repeat number: 1 Indications: Moderate persistent asthma, uncomplicated; Start: 10-11-2023 Nebulizer Mach ine Nebulizer Machine, See Instructions, 1 EA, 0, Nebulizer Machine, [facility] #[id number], Supply, 168, cm, 10/11/23 14:32:00 EDT, Height/Length Dosing, 160.2, kg, 10/11/23 14:32:00 EDT, Weight Dosing Start Date: 10/11/23 Status: Ordered Start: 10-02-2019 Nebulizer Mach ine Nebulizer Machine, See Instructions, 1 EA, 0, Nebulizer Machine, [facility] #16, Supply, 170, cm, 10/02/19 13:41:00 EDT, Height/Length Measured, 156, kg, 10/02/19 13:41:00 EDT, Weight Measured Start Date: 10/02/19 Status: Ordered Nebulizer Tubing and Mouthpiece Kit (20 sources) Start: 10-11-2023 Nebulizer Tubi ng and Mouthpiece Kit Nebulizer Tubing and Mouthpiece Kit, See Instructions, 1 kit(s), 0, Nebulizer Tubing and Mouthpiece Kit, [facility] #[id number], Supply, 168, cm, 10/11/23 14:32:00 EDT, Height/Length Dosing, 160.2, kg, 10/11/23 14:32:00 EDT, Weight Dosing Start Date: 10/11/23 Status: Ordered Quantity: 1.0 Unit: kit(s) Repeat number: 1 Indications: Moderate persistent asthma, uncomplicated; Start: 10-11-2023 Nebulizer Tubi ng and Mouthpiece Kit Nebulizer Tubing and Mouthpiece Kit, See Instructions, 1 kit(s), 0, Nebulizer Tubing and Mouthpiece Kit, [facility] #[id number], Supply, 168, cm, 10/11/23 14:32:00 EDT, Height/Length Dosing, 160.2, kg, 10/11/23 14:32:00 EDT, Weight Dosing Start Date: 10/11/23 Status: Ordered Start: 10-02-2019 Nebulizer Tubi ng and Mouthpiece Kit Nebulizer Tubing and Mouthpiece Kit, See Instructions, 1 kit(s), 0, Nebulizer Tubing and Mouthpiece Kit, [facility] #16, Supply, 170, cm, 10/02/19 13:41:00 EDT, Height/Length Measured, 156, kg, 10/02/19 13:41:00 EDT, Weight Measured Start Date: 10/02/19 Status: Ordered polyethylene glycol 3350 [id number] mg / potassium chloride 2970 mg / sodium bicarbonate 6740 mg / sodium chloride 5860 mg / sodium sulfate 71126 mg powder for oral solution (1 source) Osmotic Laxative Start: 03-17-2020 End: 03-17-2020 polyethylene glycol (GoLYTELY) solution 4,000 mL Start: 03-17-2020 End: 03-17-2020 polyethylene glycol (GoLYTEL Y) solution 4,000 mL potassium chloride 20 meq extended release oral tablet (20 sources) Start: 01-29-2025 take 1 tablet by mouth once daily potassium chloride 20 mEq ER Tab 20 mEq = 1 tab(s), Oral, Daily, Take with Lasix, # 90 tab(s), Refills(s) 4, Pharmacy: [facility] #16, 168, cm, 01/29/25 8:19:00 EDT, Height/Length Dosing, 159, kg, 01/24/25 8:55:00 EDT, Weight Dosing Start Date: 01/29/25 Status: Ordered Quantity: 90.0 Unit: tab(s) Repeat number: 5 Indications: Localized edema; Start: 12-12-2022 potassium chlo ride (KLOR-CON M) 20 MEQ extended release tablet Start: 06-15-2021 End: 08-08-2024 take 1 tablet by mouth once daily potassium chloride 20 mEq ER Tab 20 mEq = 1 tab(s), Oral, Daily, Take with Lasix, # 90 tab(s), Refills(s) 1, Pharmacy: [facility] #[id number], 168, cm, 06/05/24 13:03:00 EST, Height/Length Dosing, 145.9, kg, 06/05/24 13:03:00 EST, Weight Dosing Start Date: 06/05/24 Status: Ordered Quantity: 90.0 Unit: tab(s) Repeat number: 2 Indications: Localized edema; predniSONE 10 mg oral tablet (16 sources) Start: 12-29-2024 predniSONE 10 mg Tab 10 mg = 1 tab(s), Oral, As Directed, 4 tabs for 2 days,3 tabs for 2 days,2 tabs for 2 days,1 tab for 2 days, # 20 tab(s), Refills(s) 0, Pharmacy: [facility] #16, 168, cm, 12/27/24 10:40:00 EDT, Height/Length Dosing, 165.6, kg, 12/27/24 10:40:00 EDT, Weight Dosing Start Date: 12/29/24 Status: Ordered Quantity: 20.0 Unit: tab(s) Repeat number: 1 Indications: Chronic obstructive pulmonary disease with (acute) exacerbation; Start: 04-26-2023 predniSONE 20 mg Tab 20 mg = 1 tab(s), Oral, As Directed, Take three tabs by mouth for one day, then two tabs for one day, then one tab for one day, # 6 tab(s), Refills(s) 0, Pharmacy: [facility] #[id number], 167, cm, 04/26/23 11:10:00 EDT, Height/Length Dosing, [...] daily Prednisone Active 10 MG PO Daily September 14, 2022 12:00am take 60mg daily for 3 days, then 40mg daily for 3 days, then 20mg daily for 3 days, then 10mg daily for 3 days and stop. Ventolin HFA 90 mcg/inh Aerosol (3 sources) Start: 04-13-2022 take 1 dose by inhalation four times daily Ventolin HFA 90 mcg/inh Aerosol 2 puff(s), Inhalation, QID Cough, 1 EA, Refill(s) 1, [facility] #[id number], 163, cm, 12/30/21 11:09:00 EDT, Height/Length Dosing, 154, kg, 12/30/21 11:09:00 EDT, Weight Dosing Start Date: 04/13/22 Status: Ordered Start: 09-23-2020 take 2 puff(s) by in halation four times daily Ventolin HFA 90 mcg/inh Aerosol 2 puff(s), Inhalation, QID Cough, 1 EA, Refill(s) 0, [facility] [address], 170, cm, 09/22/20 10:15:00 EDT, Height/Length Dosing, 155.5, kg, 09/22/20 10:15:00 EDT, Weight Dosing Start Date: 09/23/20 Status: Ordered Ventolin HFA 90 mcg/inh Aerosol-Adpt (20 sources) Start: 10-01-2022 take 1 dose by inhalation every six hours Ventolin HFA 90 mcg/inh Aerosol-Adpt 2 puff(s), Inhalation, q6hr for wheezing, 1 EA, Refill(s) 1, [facility] #[id number], 167, cm, 09/29/22 11:37:00 EDT, Height/Length Dosing, 149.2, kg, 09/29/22 11:37:00 EDT, Weight Dosing Start Date: 10/01/22 Status: Ordered Start: 07-23-2022 take 2 puff(s) by in halation every six hours for wheezing Ventolin HFA 90 mcg/inh Aerosol-Adpt 2 puff(s), Inhalation, q6hr for wheezing, 18 gram, Refill(s) 1, [facility] #[id number], 163, cm, 12/30/21 11:09:00 EDT, Height/Length Dosing, 154, kg, 12/30/21 11:09:00 EDT, Weight Dosing Start Date: 07/23/22 Status: Ordered Vitamin D3 5000 intl units oral capsule (20 sources) Start: 10-14-2022 take 1 capsule by mouth once daily at mealtime Vitamin D3 5000 intl units oral capsule 5,000 International_Unit = 1 cap(s), Oral, Daily, with food, # 100 cap(s), Refills(s) 1, [facility]: [facility] #[id number], 170, cm, 10/13/22 9:06:00 EDT, Height/Length Dosing, [...] Onset: 2 Chronic Diabetes mellitus without complication (12 sources) Type 2 diabetes mellitus; Translations: [Type 2 diabetes mellitus without complications] Onset: 5 11-07-2024 Chronic Diabetes mellitus without complication (1 source) [...] Episodic Immunizations and screening for infectious disease (2 sources) Vaccination given; Translations: [Encounter for immunization] Onset: 3 Episodic Malaise and fatigue (1 source) Fatigue; Translations: [Other fatigue] Episodic Miscellaneous mental health disorders (20 sources) Chronic insomnia; Translations: [Psychophysiologic insomnia] Onset: 3 01-16-2019 Chronic Mood disorders (20 sources) Severe major depression, single episode, without psychotic features; Translations: [Major depressive disorder, single episode, severe without psychotic features] Onset: 2 Chronic Mycoses (5 sources) Candidal paronychia ; Translations: [Candidiasis of skin and nail] Onset: 5 Episodic Nonspecific chest pain (5 sources) Chest pain; [...] current use of drug therapy; Translations: [Other adjunct faculty for medical terminology (current) drug therapy] Onset: 3 Episodic Other and unspecified benign neoplasm (20 sources) Tubular adenoma of colon 03-20-2020 Episodic Other and unspecified benign neoplasm (14 sources) Polyp of colon; Translations: [Polyp of colon] Onset: 3 Episodic Other and unspecified benign neoplasm (20 sources) History of polyp of colon; Translations: [...] Onset: 3 Episodic Other connective tissue disease (20 sources) Weakness of left hand; Translations: [Other symptoms and signs involving the musculoskeletal system] Episodic Other connective tissue disease (1 source) Paraparesis; Translations: [Other symptoms and signs involving the musculoskeletal system] Episodic Other female genital disorders (1 source) Hypertrophy of uterus; Translations: [Hypertrophy of uterus] Episodic Other female genital disorders (1 source) Enlarged uterus 02-13-2020 Episodic Other gastrointestinal disorders (4 sources) Diarrhea; Translations: [Diarrhea, unspecified] Onset: 5 Episodic Other hereditary and degenerative nervous system conditions (20 sources) Restless legs 01-16-2019 Chronic Other inflammatory condition of skin (20 sources) Granuloma annulare 05-14-2021 Episodic Other liver diseases (20 sources) Steatosis of liver; Translations: [Fatty (change of) liver, not elsewhere classified] Onset: 3 02-13-2020 Chronic Other liver diseases (20 sources) Elevated liver enzymes level 09-06-2022 Episodic Other liver diseases (2 sources) Increased aspartate transaminase level; Translations: [Elevation of levels of liver transaminase levels] Onset: 3 Episodic Other liver diseases (20 sources) Large liver; Translations: [Hepatomegaly, not elsewhere classified] Onset: 4 Episodic Other lower respiratory disease (9 sources) Dyspnea; Translations: [Shortness of breath] Onset: 5 Episodic Other lower respiratory disease (2 sources) Shortness of breath; Translations: [Shortness of breath] 09-10-2022 Episodic Other lower respiratory disease (1 source) Dyspnea, unspecified; Translations: [Dyspnea, unspecified] Onset: 4 Episodic Other lower respiratory disease (10 sources) Dyspnea on exertion 11-27-2024 Episodic Other nervous system disorders (20 sources) Neurogenic claudication 10-18-2022 Episodic Other non-traumatic joint disorders (4 sources) Pain in right hip joint; Translations: [Pain in right hip] Onset: 4 Episodic Other non-traumatic joint disorders (20 sources) Hip pain 08-10-2023 Episodic Other non-traumatic [...] Chronic Other nutritional; endocrine; and metabolic disorders (18 sources) Severe obesity 11-25-2022 Chronic Other nutritional; [...] conditions (not mental disorders or infectious disease) (12 sources) Screening for malignant neoplasm of colon [...] Stomach cancer 01-31-2020 Episodic Residual codes; unclassified (12 sources) Localized edema; Translations: [Localized edema] Onset: 3 Episodic Residual codes; unclassified (1 source) Bilateral lower limb edema; Translations: [Localized edema] Episodic Residual codes; unclassified (9 sources) Current drinker; Translations: [Alcohol use, unspecified, uncomplicated] Onset: 3 Episodic Residual codes; unclassified (1 source) Localized edema; Translations: [Localized edema] Onset: 4 Episodic Respiratory failure; insufficiency; arrest (adult) (4 sources) Acute respiratory failure; Translations: [Acute respiratory failure with hypoxia] 09-10-2022 Episodic Respiratory failure; insufficiency; arrest (adult) (1 source) Respiratory failure; insufficiency; arrest (adult); Translations: [Acute respiratory failure with hypoxia] Onset: 3 Skin and subcutaneous tissue infections (2 sources) Cellulitis, unspecified; Translations: [Cellulitis] Onset: 5 Episodic Spondylosis; intervertebral disc disorders; other back problems (20 sources) Sciatica; Translations: [Sciatica, unspecified side] Onset: 3 Episodic Substance-related disorders (20 sources) Nicotine dependence; Translations: [Nicotine dependence, cigarettes, uncomplicated] Onset: 3 Chronic Substance-related disorders (20 sources) Marijuana user; Translations: [Cannabis misuse] Onset: 5 10-31-2023 Episodic Unclassified (14 sources) Cancer cervix screening status 08-19-2022 Unclassified (20 sources) Patient encounter status 08-19-2022 Unclassified (20 sources) Finding relating to alcohol drinking behavior 10-18-2022 Unclassified (20 sources) Liver function test increased 10-31-2023 Past [...] Name Value Interpretation Reference Range Facil ity Ambulatory Visit Summaryon 0 02-04-2025 Ambulatory Visit Summary Ambulatory Visit Summary CARMEN BLEDSOE :1960 Visit Date:02/04/2025 Ambulatory Visit Instructions Your Diagnosis Moderate persistent asthma Type 2 diabetes mellitus with morbid obesity Morbid obesity with BMI of 50.0-59.9, adult, Morbid (severe) obesity due to excess calories BMI 50.0-59.9, adult, Body mass index [BMI] 50.0-59.9, adult Cigarette smoker Your Care Team Attending Physician - Yocasta SMITH, 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Myron VILLATORO Primary Care Physician - Yocasta SMITH, 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Myron VILLATORO This Is Your Medications List buPROPion (buPROPion 150 mg/24 hours XL Tab) Contact prescribing physician if questions or concerns Misc Prescription (Alcohol wipes) Misc Prescription (Bariatric transfer bench shower chair w/back rest) Misc Prescription (Glucometer) Misc Prescription (Lancets) Misc Prescription (Nebulizer Machine) Misc Prescription (Nebulizer Tubing and Mouthpiece Kit) Misc Prescription (Test Strips) albuterol (Albuterol (Eqv-Ventolin HFA) 90 mcg/inh inhalation aerosol) aripiprazole (Abilify 5 mg Tab) dulaglutide (Trulicity Pen 3 mg/0.5 mL subcutaneous solution) empagliflozin (Jardiance 10 mg oral tablet) fluoxetine (FLUoxetine 20 mg Cap) fluticasone-salmetero l (Advair HFA 115 mcg-21 mcg/inh inhalation aerosol with adapter) furosemide (furosemide 40 mg Tab) gabapentin (gabapentin 300 mg Cap) glipiZIDE (glipiZIDE 2.5 mg ER Tab) pantoprazole (Pantoprazole [address] Tab) potassium chloride (potassium chloride 20 mEq ER Tab) rosuvastatin (Crestor 40 mg Tab) spironolactone (spironolactone 25 mg Tab) Procedures Performed Colonoscopic polypectomy (12/23/2023), Colonoscopy (03/17/2020), Eye/lens implant bilat, Knee replacement, L foot bunion/reconstruction . Discharge Vitals Heart Rate (Peripheral) 78 Respiratory Rate 18 Blood Pressure 132/76 Height 168 cm Height 66 in Weight 155.1 kg Weight 341.937 lb BMI 54.95 What to do next Scheduled Follow-Up Appointments Tuesday 1:00 PM EDT With: Yocasta SMITH, DARLEEN-IRVING, Myron Hamilton Where: [facility] [address] [place] [address]- Tuesday 1:15 PM EDT With: Rick Hernandez PA-C Where: [facility] You Need to Schedule the Following Appointments Follow Up with Yocasta SMITH, SRINIVAS, Myron Hamilton When: In 1 month Comments: weight loss, initial 40 min Where: [address] [place] [phone] Medications What How Much When Why Instructions New buPROPion (buPROPion 150 mg/ 24 hours XL Tab) 1 Tablets By Mouth Every 24 hours Pickup at [facility] Unchanged albuterol (Albuterol (Eqv-Ventolin HFA) 90 mcg/ inh inhalation aerosol) 2 Puffs Inhalation Every 6 hours as needed for Shortness of breath or wheezing COPD with acute exacerbation Contact prescribing physician if questions or concerns Unchanged aripiprazole (Abilify 5 mg Tab) 1 Tablets By Mouth Every day Contact prescribing physician if questions or concerns Unchanged dulaglutide (Trulicity Pen 3 mg/ 0.5 mL subcutaneous solution) See instructions ADMINISTER 3 MG UNDER THE SKIN EVERY WEEK Contact prescribing physician if questions or concerns Unchanged empagliflozin (Jardiance 10 mg oral tablet) 10 Milligram By Mouth Every day Contact prescribing physician if questions or concerns Unchanged fluoxetine (FLUoxetine 20 mg Cap) 2 Capsules By Mouth Every day Contact prescribing physician if questions or concerns Unchanged fluticasone-salmetero l (Advair HFA 115 mcg-21 mcg/ inh inhalation aerosol with adapter) 2 Puffs Inhalation 2 times a day Moderate persistent asthma Contact prescribing physician if questions or concerns Unchanged furosemide (furosemide 40 mg Tab) 1 Tablets By Mouth 2 times a day Peripheral edema (HFpEF) heart failure with preserved ejection fraction Contact prescribing physician if questions or concerns Unchanged gabapentin (gabapentin 300 mg Cap) 1 Capsules 3 times a day Contact prescribing physician if questions or concerns Unchanged glipiZIDE (glipiZIDE 2.5 mg ER Tab) 1 Tablets By Mouth Every day Contact prescribing physician if questions or concerns Unchanged Misc Prescription (Alcohol wipes) See instructions Use to check BS daily dx E11.9 Contact prescribing physician if questions or concerns Unchanged Misc Prescription (Bariatric transfer bench shower chair w/ back rest) See instructions Right heart failure, unspecified Bilateral leg edema BMI 50.0-59.9, adult to be used in the shower Contact prescribing physician if questions or concerns Unchanged Misc Prescription (Glucometer) See instructions Glucometer to test BS TID and PRN dx E11.9 Contact prescribing physician if questions or concerns Unchanged Misc Prescription (Lancets) See instructions Use to check BS daily dx E11.9 Contact prescribing physician if questions or concerns Unchanged Misc Prescription (Nebulizer Machine) See instructions Moderate pe (more content not included)... Normal [facility] Family Medicine Office/Clini c Noteon 02-04-2025 Family Medicine Office/Clinic Note Family Medicine Office/Clinic Note Chief Complaint The patient presents with hip pain and asthma exacerbation. HPI Staff Asthma: Patient stated that breathing is 100% better than the last visit here. Assessment of control: Frequency of daytime attacks: none Frequency of nighttime attacks: none Rescue therapy use since last visit: none Currently having attack: no Refills needed: History of Present Illness The patient is a 64-year-old female presenting with asthma exacerbation and hip pain. HPI has been reviewed with the patient. The asthma has been worsening, necessitating the addition of Advair for maintenance therapy. The patient reports significant improvement in asthma symptoms with Advair, although wheezing persists but does not become short of breath. The patient also reports chronic hip pain, which is a significant concern during this visit. The pain has been persistent and impacts her daily activities. Has talked about getting steroid injection. The patient has a history of morbid obesity with a BMI of 50.0-59.9, which has been a longstanding issue. She has considered bariatric surgery but has placed it on hold due to personal reasons and concerns about the procedure. The patient has previously lost 50 pounds through diet and exercise but struggles with maintaining weight loss. The patient has type 2 diabetes mellitus, which is currently managed with Trulicity, maintaining her A1c at 6.1%. She has not experienced any kidney issues and is exploring other medication options for better weight management. The patient is a cigarette smoker, which complicates her respiratory condition. She has been advised to quit smoking and is considering bupropion to aid in cessation. 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 There was a good response in the FEV1 to bronchodilator therapy. [1] Review of Systems PHQ Score Initial Depression Screen Score: 0 SCORE - Respiratory: Reports wheezing and asthma exacerbation. Denies cough or hemoptysis. - Musculoskeletal: Reports chronic hip pain. - Endocrine: Denies any symptoms of hypoglycemia. - Renal: Denies any kidney issues. Physical Exam Vitals & Measurements HR: 78(Peripheral) RR: 18 BP: 132/76 SpO2: 97% HT: 168 cm HT: 66 in WT: 155.1 kg WT: 341.937 lb BMI: 54.95 Constitutional: Well-groomed, well-nourished, no signs of acute distress. HEENT: Head normocephalic, sclera is clear. Cardiothoracic: Heart rate and rhythm is regular strong, normal S1 and S2. No murmurs, rubs, or bruits auscultated. No peripheral edema, peripheral pulses +2 Respiratory: Lung sounds with expiratory wheezes throughout serially, respirations regular nonlabored, Abdomen/GI: Abdomen soft nondistended. Musculoskeletal: Gait is steady with a walker, full range of motion, Integument: No rashes or lesions noted to the exposed skin. Psychiatric: Alert and oriented x 3, pleasant, no mood changes. Assessment/Plan 1. Moderate persistent asthma (J45.40: Moderate persistent asthma, uncomplicated) Patient is been on Advair for 2 weeks now and has noticed an improvement in the symptoms. Breathing has become easier without any shortness of breath. At this time we will continue the Advair as prescribed. 2. Type 2 diabetes mellitus with morbid [...] prevent sores and possibly loss of limbs. The patient's diabetes is managed with Trulicity, maintaining an A1c of 6.1%. Exploration of additional medication options for weight management is ongoing. 3. Morbid obesity with BMI of 50.0-59.9, adult, (E66.01: Morbid (severe) obesity due to excess calories) Calorie restriction along with routine aerobic exercises discussed in order to avoid hypertension, osteoarthritis, metabolic syndrome and/or worsening of chronic underlying disease states. Encouraged to limit sugary drinks, foods high in sodium, as well as alcohol. Morbid (severe) obesity due to excess calories 4. BMI 50.0-59.9, adult, (Z68.43: Body mass index [BMI] 50.0-59.9, adult)Body mass index [BMI] 50.0-59.9, adult Will follow-up with me in 1 month for initial weight loss. Would like to trial bupropion to help with the weight as well as smoking sensation. Did encourage her to explore on the Internet and YouTube for chair exercises to start initiating. Ordered: Most recent diastolic blood pressure <80 mm Hg 3078F Systolic BP 130-139 mm Hg (Most Recent) 3075F 5. Cigarette smoker (F17.210: Nicotine dependence, cigarettes, uncomplicated) (more content not included)... Normal [facility] Comment on above: Result Comment: Elec tronically Signed By: Yocasta SMITH, DARLEEN- IRVING, Myron Hamilton\.br\Date and Time Signed: 02/04/25 15:13 EDT Ambulatory Visit Summaryon 0 01-29-2025 Ambulatory Visit Summary Ambulatory Visit Summary CARMEN BLEDSOE :1960 Visit Date:01/29/2025 Ambulatory Visit Instructions Your Diagnosis Heart failure with preserved ejection fraction Benign hypertension Mixed hyperlipidemia Your Care Team Attending Physician - Rick Hernandez PA-C Primary Care Physician - Yocasta MSN, DARLEEN-IRVING, Myron Hamilton Referring Physician - NONE, XXXX This Is Your Medications List Misc Prescription (Alcohol wipes) Misc Prescription (Bariatric transfer bench shower chair w/back rest) Misc Prescription (Glucometer) Misc Prescription (Lancets) Misc Prescription (Nebulizer Machine) Mis Prescription (Nebulizer Tubing and Mouthpiece Kit) [facility] Prescription (Test Strips) albuterol (Albuterol (Eqv-Ventolin HFA) 90 mcg/inh inhalation aerosol) aripiprazole (Abilify 5 mg Tab) azithromycin (azithromycin 250 mg Tab) dulaglutide (Trulicity Pen 3 mg/0.5 mL subcutaneous solution) empagliflozin (Jardiance 10 mg oral tablet) fluconazole (Diflucan 150 mg Tab) fluoxetine (FLUoxetine 20 mg Cap) furosemide (furosemide 40 mg Tab) gabapentin (gabapentin 300 mg Cap) glipiZIDE (glipiZIDE 2.5 mg ER Tab) methylPREDNISolone (Medrol 4 mg Tab) nystatin (nystatin 100,000 units/mL Oral Susp) nystatin topical (nystatin Top 100,000 units/g Pwdr) pantoprazole (Pantoprazole [address] Tab) potassium chloride (potassium chloride 20 mEq ER Tab) predniSONE (predniSONE 10 mg Tab) rosuvastatin (Crestor 40 mg Tab) spironolactone (spironolactone 25 mg Tab) Procedures Performed Colonoscopic polypectomy (12/23/2023), Colonoscopy (03/17/2020), Eye/lens implant bilat, Knee replacement, L foot bunion/reconstruction . Discharge Vitals Heart Rate (Peripheral) 6 Respiratory Rate 20 Blood Pressure 140/80 Height 168 cm Height 66 in What to do next Scheduled Follow-Up Appointments Tuesday 1:40 PM EDT With: Yocasta SMITH, 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[employer], Myron Hamilton Where: [facility] [address] [place] [address]- Tuesday 1:15 PM EDT With: David LEONARD, Rick Gipson Where: [facility] Medications What How Much When Why Instructions Unchanged albuterol (Albuterol (Eqv-Ventolin HFA) 90 mcg/ inh inhalation aerosol) 2 Puffs Inhalation Every 6 hours as needed for Shortness of breath or wheezing COPD with acute exacerbation Unchanged aripiprazole (Abilify 5 mg Tab) 1 Tablets By Mouth Every day Unchanged azithromycin (azithromycin 250 mg Tab) 1 Packets By Mouth As Directed Duration: 5 Days as directed on package labeling Unchanged dulaglutide (Trulicity Pen 3 mg/ 0.5 mL subcutaneous solution) See instructions ADMINISTER 3 MG UNDER THE SKIN EVERY WEEK Unchanged empagliflozin (Jardiance 10 mg oral tablet) 10 Milligram By Mouth Every day Unchanged fluconazole (Diflucan 150 mg Tab) 1 Tablets By Mouth Once one tablet now and repeat in 72 hours Unchanged fluoxetine (FLUoxetine 20 mg Cap) 2 Capsules By Mouth Every day Unchanged furosemide (furosemide 40 mg Tab) 1 Tablets By Mouth 2 times a day Peripheral edema (HFpEF) heart failure with preserved ejection fraction Unchanged gabapentin (gabapentin 300 mg Cap) 1 Capsules 3 times a day Unchanged glipiZIDE (glipiZIDE 2.5 mg ER Tab) 1 Tablets By Mouth Every day Unchanged methylPREDNISolone (Medrol 4 mg Tab) 1 Packets By Mouth As Directed Duration: 6 Days as directed on package labeling Unchanged Misc Prescription (Alcohol wipes) See instructions Use to check BS daily dx E11.9 Unchanged Misc Prescription (Bariatric transfer bench shower chair w/ back rest) See instructions Right heart failure, unspecified Bilateral leg edema BMI 50.0-59.9, adult to be used in the shower Unchanged Misc Prescription (Glucometer) See instructions Glucometer to test BS TID and PRN dx E11.9 Unchanged Misc Prescription (Lancets) See instructions Use to check BS daily dx E11.9 Unchanged Misc Prescription (Nebulizer Machine) See instructions Moderate persistent asthma Nebulizer Machine Unchanged Misc Prescription (Nebulizer Tubing and Mouthpiece Kit) See instructions Moderate persistent asthma Nebulizer Tubing and Mouthpiece Kit Unchanged Misc Prescription (Test Strips) See instructions Type 2 diabetes mellitus with morbid obesity Use to test BS daily Unchanged nystatin (nystatin 100,000 units/ mL Oral Susp) 5 Milliliter Oral-Swish &Swallow 4 times a day Duration: 14 Days Unchanged nystatin topical (nystatin Top 100,000 units/ g Pwdr) 1 Application Topical 2 times a day Unchanged pantoprazole (Pantoprazole [address] Tab) 1 Tablets By Mouth Every day Unchanged potassium chloride (potassium chloride 20 mEq ER Tab) 1 Tablets By Mouth Every day Peripheral edema Take with Lasix Unchanged predniSONE (predniSONE 10 mg Tab) 1 Tablets By Mouth As Directed COPD with acute exacerbation 4 tabs for 2 days,3 tabs for 2 days,2 tabs for 2 days,1 tab for 2 days Unchanged rosuvastatin (Crestor 40 mg Tab) 1 (more content not included)... Normal [facility] Heart and Vascular Office/Cl inic Noteon 01-29-2025 Heart and Vascular Office/Clinic Note Heart and Vascular Office/Clinic Note Chief Complaint 4 week F/U History of Present Illness Patient is a 64-year-old female with past medical history of hypertension, cigarette smoking, GERD, HFpEF, history of alcohol abuse, hyperlipidemia, asthma, BRENDA, type 2 diabetes. Echo from 11/2023 showed grossly normal EF with normal LV and RV and no significant valve disease, regional wall motion abnormality could not be excluded. Patient comes in for 1 month follow-up today. Reviewed prior echoes. At last visit, I saw patient which time she was continued on current medications, but schedule close follow-up to recheck swelling. Patient reports that she did have some increased swelling and cellulitis diagnosed since her last office visit with me. Patient reports that they started to swell and get red at the same time. She has continued taking Lasix 40 mg twice daily since last visit. She was treated with antibiotics which then helped her swelling in lower extremities. She is still having more swelling in her left lower extremity compared to right, but they are both down compared to when they were infected with cellulitis. Patient reports that lower extremities were a little painful and that has resolved. Patient is still compliant with Jardiance and spironolactone as well for heart/swelling. Patient does feel that her swelling is still significantly better since taking Lasix twice daily compared to when she was only taking it once daily. Patient recently did complete her heart testing, but has not followed up with PCP yet about further management of shortness of breath. She reports that shortness of breath is not much change at all since last visit. Patient denies chest pain, heart palpitations, dizziness/lightheaded ness. REVIEWED PRIOR NOTE FROM 01/01/2025: Patient comes in for 6-month follow-up today. Reviewed prior echoes. At last visit, I saw patient at which time she was continued on current medications. Patient was hospitalized since her last visit with me from 12/27/2024 through 12/29/2024 due to swelling in lower extremities and shortness of breath. Patient was diagnosed with acute heart failure exacerbation while she was in the hospital and Lasix was increased to 40 mg twice daily upon discharge. Patient is also taking Jardiance, spironolactone to help out with heart/swelling. Patient reports that she has been doing much better since being discharged from the hospital a few days ago. Patient reports that she is not having nearly as much swelling as she was prior to hospitalization. Patient reports that she has been compliant with increased dose of Lasix to 40 mg twice daily and that has been helping to keep her swelling down. Patient is still taking potassium supplementation of KCl 20M EQ daily. Patient reports that her breathing has improved as well. She states that she still is having some shortness of breath, but is not nearly as bad as it was. She does have PFTs scheduled for tomorrow or in the near future to look into COPD further. Did discuss getting a stress test given patient's ongoing issues with shortness of breath, but she believes they are lung related would like to see how she is doing at next follow-up before getting stress test. Patient denies chest pain, heart palpitations, dizziness/lightheaded ness. Review of Systems PHQ Score Initial Depression Screen Score: 0 SCORE ROS - Provider Constitutional: no fever, no chills, no sweats, no weakness Respiratory: yes shortness of breath, no cough Cardiovascular: no chest pain, positive for swelling to lower extremities Neuro: no dizziness. no loss of consciousness Physical Exam Vitals & Measurements HR: 6(Peripheral) RR: 20 BP: 140/80 SpO2: 93% HT: 168 cm HT: 66 in General: alert, no acute distress Cardiovascular: regular rate and rhythm, no murmur normal peripheral perfusion Respiratory: Lungs: Mild expiratory wheeze in right lower lobe. All other lung ortega clear to auscultation, respirations non labored Extremities: no edema left lower extremity. no edema right lower extremity. Patient does have mild erythema to both lower extremities and does appear to have some mild nonpitting edema bilaterally Neurological: oriented x 4, LOC appropriate for age, speech normal Skin: Warm, dry, intact- no rash or concerning lesions Cardiac Diagnostics (12/28/2024 10:03 EDT Echo Transthoracic Complete) Interpretation Summary The left ventricle is normal in size. mild left ventricular hypertrophy. Ejection Fraction = 60-65%. Grade I diastolic dysfunction, (abnormal relaxation pattern). [1] (11/08/2023 15:28 EDT Echo Transthoracic Complete) Interpretation Summary Grossly normal LV and RV. No significant valve disease. Cannot exclude regional wall motion abnormality. No estimated PA pressure. Impaired diastolic relaxation. Assessment/Plan 1. Heart failure with preserved ejection fraction (I50.30: Unspecified diastolic (congestive) heart failure) Patient has history of per (more content not included)... Normal [facility] Comment on above: Result Comment: Elec tronically Signed By: Rick Hernandez PA-C.[email or web address]\Date and Time Signed: 01/29/25 10:10 EDT [facility] 01-29-20 [facility] Case Information Case Priority: None Programs: -- Referral Source: System Operation Superintendent Referral Reason: Care coordination Case Type: Transition Care Management Risk Score: -- Case Status: Enrolled (December 31, 2024) Date Assigned: December 31, 2024 Assigned By: Gracy Maxwell R.N. Date Enrolled: December 31, 2024 Assigned Primary Personnel: Gracy Maxwell R.N. Assigned Secondary Personnel: -- Case Physician: Yocasta SMITH, 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[employer], Myron Hamilton Problems Ongoing Alcohol abuse, in remission Alcohol problem drinking Benign hypertension Bilateral hip pain Bilateral leg edema BMI 50.0-59.9, adult Candidiasis of skin Chronic insomnia Cigarette smoker Elevated LFTs Elevated liver transaminase level Fatty liver GA (granuloma annulare) GERD (gastroesophageal reflux disease) Heart failure with preserved ejection fraction Hepatomegaly History of alcohol abuse History of colon polyps Hypokalemia Left hand weakness Low vitamin D level Marijuana user Mixed hyperlipidemia Moderate persistent asthma Morbid obesity with BMI of 50.0-59.9, adult Neurogenic claudication Non-insulin dependent type 2 diabetes mellitus Obstructive sleep apnea Restless leg syndrome Right hip pain Sciatica Seborrheic keratoses Severe major depression Shortness of breath on exertion Skin tags, multiple acquired Smoker Type 2 diabetes mellitus with morbid obesity Uterine fibroid Historical COPD exacerbation Tubular adenoma of colon Procedure/Surgical History Colonoscopic polypectomy (12/23/2023), Colonoscopy (03/17/2020), Eye/lens implant bilat, Knee replacement, L foot bunion/reconstruction . Home Medications Abilify 5 mg Tab, 5 mg= 1 tab(s), Oral, Daily, 4 refills Albuterol (Eqv-Ventolin HFA) 90 mcg/inh inhalation aerosol, 2 puff(s), Inhalation, q6hr, PRN, 1 refills Alcohol wipes, See Instructions, 3 refills azithromycin 250 mg Tab, 1 packet(s), Oral, As Directed Bariatric transfer bench shower chair w/back rest, See Instructions Crestor 40 mg Tab, 40 mg= 1 tab(s), Oral, Daily, 3 refills Diflucan 150 mg Tab, 150 mg= 1 tab(s), Oral, Once FLUoxetine 20 mg Cap, 40 mg= 2 cap(s), Oral, Daily, 4 refills furosemide 40 mg Tab, 40 mg= 1 tab(s), Oral, BID, 2 refills gabapentin 300 mg Cap, 300 mg= 1 cap(s), TID glipiZIDE 2.5 mg ER Tab, 2.5 mg= 1 tab(s), Oral, Daily, 1 refills Glucometer, See Instructions Jardiance 10 mg oral tablet, 10 mg, Oral, Daily, 4 refills Lancets, See Instructions, 3 refills Medrol 4 mg Tab, 1 packet(s), Oral, As Directed Nebulizer Machine, See Instructions Nebulizer Tubing and Mouthpiece Kit, See Instructions nystatin 100,000 units/mL Oral Susp, 671200 unit(s)= 5 mL, Oral-Swish&Swallow, QID nystatin Top 100,000 units/g Pwdr, 1 beto, Topical, BID, 1 refills Pantoprazole [address] Tab, 40 mg= 1 tab(s), Oral, Daily, 4 refills potassium chloride 20 mEq ER Tab, 20 mEq= 1 tab(s), Oral, Daily, 1 refills predniSONE 10 mg Tab, 10 mg= 1 tab(s), Oral, As Directed spironolactone 25 mg Tab, 25 mg= 1 tab(s), Oral, Daily, 4 refills Test Strips, See Instructions, 3 refills Trulicity Pen 3 mg/0.5 mL subcutaneous solution, See Instructions Allergies amLODIPine (Leg Edema) lisinopril (Persistent cough, Tongue swelling) metFORMIN (Diarrhea) Social History Alcohol Current, 1-2 times per week, Alcohol use interferes with work or home: No. Drinks more than intended: No. Others hurt by drinking: No. Ready to change: No. Household alcohol concerns: No., 12/27/2024 1-2 times per month, 12/27/2024 Past, Liquor, Daily, 16 drinks/episode average. 16.00 drinks/episode maximum. Started age 18 Years. Stopped age 61 Years. Previous treatment: Inpatient. Alcohol use interferes with work or home: No. Drinks more than intended: Yes. Others hurt by drinking: No. Household alcohol concerns: No., 11/02/2023 Substance Abuse Marijuana, 1-2 times per year, 12/27/2024 Current, Marijuana, pain pills, 1-2 times per month, Previous treatment: Treatment center. Started age 42 Years. Stopped age 52 Years. IV drug use: No. Drug use interferes with work/home: Yes. Ready to change: Yes. Household substance abuse concerns: No., 09/24/2022 DENIES, Household substance abuse concerns: No., 09/22/2022 Tobacco 10 or more cigarettes (1/2 pack or more)/day in last 30 days Tobacco Use:. Never Smokeless Tobacco Use:. Cigarettes, 1 per day. 43 year(s). Total pack years: 15. Started age 18.0 Years. Previous treatment: None. Ready to change: Yes. Household tobacco concerns: No., 01/02/2025 10 or more cigarettes (1/2 pack or more)/day in last 30 days Tobacco Use:. Yes, 01/01/2025 10 or more cigarettes (1/2 pack or more)/day in last 30 days Tobacco Use:. Never Smokeless Tobacco Use:. Cigarettes, Started age 17.0 Years., 12/27/2024 Family History Hypertension: Mother, Sister and Brother. Liver cancer: Father. Stomach cancer: Mother. Screenings and Assessments 12/31/24 09:55: (more content not included)... Normal [facility] BNPon 01-24-2025 Int Ctr BNP Pass Normal [facility] Comment on above: Performed By: #### 1 [id number] #### [facility] [address] [place] [address] Natriuretic peptide B (Bld) [Mass/Vol] 20 pg/mL Normal 5-80 [facility] Comment on above: Performed By: #### 1 [id number] #### [facility] [address] [place] [address] CBC w/ Auto Diffon 5 Basophil Absolute 0.2 E9/L Normal 0.0-0.2 [facility] Comment on above: Performed By: #### 2 [id number] #### [facility] [address] [place] [address] Basophils/100 WBC (Bld) 3.1 % High 0.0-2.0 [facility] Comment on above: Performed By: #### 2 [id number] #### [facility] [address] [place] [address] Eos Absolute 0.1 E9/L Normal 0.0-0.5 [facility] Comment on above: Performed By: #### 2 [id number] #### [facility] [address] [place] [address] Eosinophils/100 WBC (Bld) 2.7 % Normal 0.0-8.0 [facility] Comment on above: Performed By: #### 2 [id number] #### [facility] [address] [place] [address] Erythrocyte distribution width (RBC) [Ratio] 15.8 % High 10.9-14.2 [facility] Comment on above: Performed By: #### 2 [id number] #### [facility] [address] [place] [address] Hematocrit (Bld) [Volume fraction] 38.3 % Normal 34.0-46.0 [facility] Comment on above: Performed By: #### 2 [id number] #### [facility] [address] [place] [address] Hemoglobin (Bld) [Mass/Vol] 13.0 g/dL Normal 12.0-16.0 [facility] Comment on above: Performed By: #### 2 [id number] #### [facility] [address] [place] [address] Lymph Absolute 0.8 E9/L Low 1.0-4.0 [facility] Comment on above: Performed By: #### 2 [id number] #### [facility] [address] [place] [address] Lymphocytes/100 WBC (Bld) 15.4 % Normal 14.0-50.0 [facility] Comment on above: Performed By: #### 2 [id number] #### [facility] [address] [place] [address] MCH (RBC) [Entitic mass] 31.3 pg Normal 27.0-34.0 [facility] Comment on above: Performed By: #### 2 [id number] #### [facility] [address] [place] [address] MCHC (RBC) [Mass/Vol] 33.9 g/dL Normal 31.4-36.0 [facility] Comment on above: Performed By: #### 2 [id number] #### [facility] [address] [place] [address] MCV (RBC) [Entitic vol] 92.2 fL Normal 80.0-100.0 [facility] Comment on above: Performed By: #### 2 [id number] #### [facility] [address] [place] [address] [place] Absolute 0.4 E9/L Normal 0.2-1.0 [facility] Comment on above: Performed By: #### 2 [id number] #### [facility] [address] [place] [address] Monocytes/100 WBC (Bld) 7.3 % Normal 4.0-14.0 [facility] Comment on above: Performed By: #### 2 [id number] #### [facility] [address] [place] [address] Neutro Absolute 3.6 E9/L Normal 2.0-7.[address] [facility] Comment on above: Performed By: #### 2 [id number] #### [facility] [address] [place] [address] Neutro Auto 71.5 % Normal 36.0-75.0 [facility] Comment on above: Performed By: #### 2 [id number] #### [facility] [address] [place] [address] Platelet 243.0 E9/L Normal 150.0-500.0 [facility] Comment on above: Performed By: #### 2 [id number] #### [facility] [address] [place] [address] Platelet mean volume (Bld) [Entitic vol] 7.2 fL Normal 6.4-10.8 [facility] Comment on above: Performed By: #### 2 [id number] #### [facility] [address] [place] [address] RBC 4.2 E12/L Low 4.3-5.9 [facility] Comment on above: Performed By: #### 2 [id number] #### [facility] [address] [place] [address] WBC 5.0 E9/L Normal 4.0-11.0 [facility] Comment on above: Performed By: #### 2 [id number] #### [facility] [address] [place] [address] CMPon 01-24-2025 Albumin [Mass/Vol] 4.3 g/dL Normal 3.3-5.0 [facility] Comment on above: Performed By: #### 2 [id number] #### [facility] [address] [place] [address] Albumin/Globulin [Mass ratio] 1.5 {ratio} Normal 1.1-2.2 [facility] Comment on above: Performed By: #### 2 [id number] #### [facility] [address] [place] [address] Alk Phos 61 Int._Unit/L Normal 21-98 [facility] Comment on above: Performed By: #### 2 [id number] #### [facility] [address] [place] [address] ALT 28 Int._Unit/L Normal 6-46 [facility] Comment on above: Performed By: #### 2 [id number] #### [facility] [address] [place] [address] Anion gap [Moles/Vol] 10 mmol/L Normal 6-16 [facility] Comment on above: Performed By: #### 2 [id number] #### [facility] [address] [place] [address] AST 22 Int._Unit/L Normal 5-43 [facility] Comment on above: Performed By: #### 2 [id number] #### [facility] [address] [place] [address] Bili Total 0.4 mg/dL Normal 0.0-1.1 [facility] Comment on above: Performed By: #### 2 [id number] #### [facility] [address] [place] [address] BUN/Creat Ratio 20 No Units Normal 10-20 [facility] Comment on above: Performed By: #### 2 [id number] #### [facility] [address] [place] [address] Calcium [Mass/Vol] 9.3 mg/dL Normal 8.9-11.1 [facility] Comment on above: Performed By: #### 2 [id number] #### [facility] [address] [place] [address] Chloride [Moles/Vol] 100 mmol/L Low 101-111 [facility] Comment on above: Performed By: #### 2 [id number] #### [facility] [address] [place] [address] CO2 [Moles/Vol] 33 mmol/L High 21-[address] [facility] Comment on above: Performed By: #### 2 [id number] #### [facility] [address] [place] [address] Creatinine [Mass/Vol] 0.8 mg/dL Normal 0.5-1.3 [facility] Comment on above: Performed By: #### 2 [id number] #### [facility] [address] [place] [address] Globulin (S) [Mass/Vol] 2.9 g/dL Normal 1.4-4.0 [facility] Comment on above: Performed By: #### 2 [id number] #### [facility] [address] [place] [address] Glucose [Mass/Vol] 114 mg/dL Normal 55-199 [facility] Comment on above: Performed By: #### 2 [id number] #### [facility] [address] [place] [address] Potassium [Moles/Vol] 3.7 mmol/L Normal 3.5-5.3 [facility] Comment on above: Performed By: #### 2 [id number] #### [facility] [address] [place] [address] Protein [Mass/Vol] 7.2 g/dL Normal 6.0-7.8 [facility] Comment on above: Performed By: #### 2 [id number] #### [facility] [address] [place] [address] Sodium [Moles/Vol] 139 mmol/L Normal 135-145 [facility] Comment on above: Performed By: #### 2 [id number] #### [facility] [address] [place] [address] Urea nitrogen [Mass/Vol] 16 mg/dL Normal 5-21 [facility] Comment on above: Performed By: #### 2 [id number] #### [facility] [address] [place] [address] CT Abdomen/Pelvis w/ Contras ton 01-24-2025 CT Abdomen/Pelvis w/ Contrast Exam Date/Time: 01/24/2025 11:09 EDT Reason for Exam: Back and hip pain;Other (please specify) Report IMPRESSION: NO ACUTE INTRA-ABDOMINAL PROCESS IDENTIFIED. EXAM: CT Abdomen/Pelvis w/ Contrast DATE: 01/24/2025 10:49 AM CLINICAL HISTORY: Back and hip pain. Technologist Comments: Pt reports 4 falls this past week, states had back injections for pain a week ago. states last fall yesterday and has left hip pain and cut her left ear. COMPARISON: None available. TECHNIQUE: Spiral imaging was obtained of the abdomen and pelvis after the uneventful infusion of intravenous contrast. All CT scans at this facility use dose modulation, iterative reconstruction, and/or weight based dosing when appropriate to reduce radiation dose to as low as reasonably achievable. Unless otherwise stated, incidental findings identified in this report do not require routine follow-up imaging. FINDINGS: Motion artifact mildly limits detail. Liver: Mildly enlarged with moderate fatty infiltration. No suspicious mass or lesion. Biliary: The gallbladder is unremarkable. No abnormal biliary ductal dilatation. Pancreas: No suspicious mass, organized fluid collection, surrounding inflammation, or abnormal pancreatic ductal dilatation. Spleen: Within normal limits. Adrenals: Within normal limits. Kidneys: No hydronephrosis, significant urinary tract calculi, or suspicious mass. GI tract: No abnormal dilation, wall thickening, or suspicious mass. Normal appendix. Lymph nodes: No pathologically enlarged lymph nodes. Vasculature: No aneurysm or dissection. Mild calcified atherosclerotic plaquing. Mesentery/peritoneum/ retroperitoneum: No ascites, organized fluid collection, inflammatory changes, or suspicious mass. Pelvis: The urinary bladder, uterus, and adnexa appear within normal limits. Musculoskeletal: No acute osseous findings identified. Moderate degenerative changes Lower thorax: Mild probable atelectasis and/or scarring of the visualized lung bases.. GFR (mL/min/1/73m2) >60 Contrast: Isovue 300 Contrast amount in ml's: 100.00 Report Ordering Provider: Lui Christiansen FINAL REPORT Dictated: 01/24/2025 11:19 am Byron Grider MD Signed (Electronic Signature): 01/24/2025 11:19 am Signed by: Byron Grider MD Transcribed by: KARSTEN Technologist: LAURA Rodríguez [facility] ED Clinical Summaryon 2024 ED Clinical Summary ED Clinical Summary [place] [id number] ED Clinical Summary Person Information [facility]: [facility] Age[facility] 64 Years : 1960 Sex: Female Language: Latvian PCP: Yocasta MSN, 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PINSETTER MECHANIC AUTOMATICMyron Marital Status: Single Visit Id: Visit Reason: Hip pain-swelling; Ear laceration; Multiple falls; FALL - LT HIP PAIN, LAC ON LT EAR, NO THINNERS Speciality: Acuity: 3 Enc Type: Emergency Med Service: Emergency Arrival: 01/24/2025 08:46:49 Discharge: 01/24/2025 13:34:30 LOS: 000 04:48 Checkin: 01/24/2025 08:46:49 Checkout: 01/24/2025 13:34:30 Dispo Type: Home (Routine DC) EVENTS: Event Name Event Status Request Date/Time Start Date/Time Complete Date/Time Arrive Complete 01/24/2025 08:46:49 01/24/2025 08:46:49 01/24/2025 08:46:49 Document Home Meds Request 01/24/2025 08:46:49 Triage Complete 01/24/2025 08:46:49 01/24/2025 08:55:08 01/24/2025 08:55:08 Bed Assign Complete 01/24/2025 08:52:17 01/24/2025 08:52:17 01/24/2025 08:52:17 Dr Exam Complete 01/24/2025 08:52:17 01/24/2025 08:52:33 01/24/2025 08:52:33 RN Exam Complete 01/24/2025 08:52:17 01/24/2025 09:29:40 01/24/2025 09:29:40 Registration Complete 01/24/2025 08:52:33 01/24/2025 09:11:24 01/24/2025 09:11:24 Patient Care Request 01/24/2025 08:54:14 30 Day Return Request 01/24/2025 08:55:09 EKG Complete 01/24/2025 09:06:21 01/24/2025 09:15:55 Pending Labs Complete 01/24/2025 09:06:21 01/24/2025 10:51:17 Lab Complete 01/24/2025 09:06:21 01/24/2025 10:28:24 Meds Admin Complete 01/24/2025 09:06:21 01/24/2025 09:56:30 Patient Care Complete 01/24/2025 09:06:21 01/24/2025 10:36:48 X-Ray Complete 01/24/2025 09:06:21 01/24/2025 09:21:06 01/24/2025 09:47:25 RT Request 01/24/2025 09:06:21 RT Tx/ABG Request 01/24/2025 09:06:22 RT Tx/ABG Request 01/24/2025 09:06:22 X-Ray Complete 01/24/2025 09:06:48 01/24/2025 09:21:06 01/24/2025 09:47:25 Meds Admin Complete 01/24/2025 09:07:32 01/24/2025 09:56:31 Pending Labs Complete 01/24/2025 09:08:03 01/24/2025 12:27:45 Reg Complete Request 01/24/2025 09:11:24 Reg Bed Request Complete 01/24/2025 09:11:24 01/24/2025 09:11:24 01/24/2025 09:11:24 Fall Risk Request 01/24/2025 09:29:41 Pending Labs Complete 01/24/2025 09:39:19 01/24/2025 09:39:19 01/24/2025 10:03:19 Lab Complete 01/24/2025 09:39:19 01/24/2025 09:39:19 01/24/2025 10:03:19 Wet Read Request 01/24/2025 09:47:25 CT Complete 01/24/2025 10:43:58 01/24/2025 10:49:40 01/24/2025 11:09:00 Pending Labs Complete 01/24/2025 12:15:32 01/24/2025 12:15:32 01/24/2025 12:15:32 US Complete 01/24/2025 12:26:51 01/24/2025 12:31:49 01/24/2025 13:05:25 Discharge Complete 01/24/2025 13:17:37 01/24/2025 13:34:37 01/24/2025 13:34:37 Transfer Complete 01/24/2025 13:34:37 01/24/2025 13:34:37 01/24/2025 13:34:37 ADDRESS: [address] [place] [address] [place] [id number] [facility] DOC NOTES: MEDICAL INFORMATION: Prescriptions Given: New Medications [facility], [address], [place] [id number], [phone] acetaminophen-hydroco done ([place] 325 mg-5 mg oral tablet) 1 Tablets By Mouth every 6 hours as needed for pain for 3 Days. Refills: 0. azithromycin (azithromycin 250 mg Tab) 1 Packets By Mouth As Directed for 5 Days. as directed on package labeling. Refills: 0. methylPREDNISolone (Medrol 4 mg Tab) 1 Packets By Mouth As Directed for 6 Days. as directed on package labeling. Refills: 0. nystatin (nystatin 100,000 units/mL Oral Susp) 5 Milliliter Oral-Swish &Swallow 4 times a day for 14 Days. Refills: 0. Medications to Continue with No Changes Other Medications albuterol (Albuterol (Eqv-Ventolin HFA) 90 mcg/inh inhalation aerosol) 2 Puffs Inhalation every 6 hours as needed Shortness of breath or wheezing. Refills: 1. aripiprazole (Abilify 5 mg Tab) 1 Tablets By Mouth every day. Refills: 4. dulaglutide (Trulicity Pen 3 mg/0.5 mL subcutaneous solution) ADMINISTER 3 MG UNDER THE SKIN EVERY WEEK. Refills: 0. empagliflozin (Jardiance 10 mg oral tablet) 10 Milligram By Mouth every day. Refills: 4. fluconazole (Diflucan 150 mg Tab) 1 Tablets By Mouth Once. one tablet now and repeat in 72 hours. Refills: 0. fluoxetine (FLUoxetine 20 mg Cap) 2 Capsules By Mouth every day. Refills: 4. furosemide (furosemide 40 mg Tab) 1 Tablets By Mouth 2 times a day. Refills: 2. gabapentin (gabapentin 300 mg Cap) 1 Capsules 3 times a day. glipiZIDE (glipiZIDE 2.5 mg ER Tab) 1 Tablets By Mouth every day. Refills: 1. Misc Prescription (Alcohol wipes) Use to check BS daily dx E11.9. Refills: 3. Misc Prescription (Glucometer) Glucometer to test BS TID and PRN dx E11.9. Refills: 0. Misc Prescription (Lancets) Use to check BS daily dx E11.9. Refills: 3. Misc Prescription (Nebulizer Machine) Nebulizer Machine. Refills: 0. Misc Prescription (Nebulizer Tubing and Mouthpiece Kit) Nebulizer Tubing and Mouthpiece Kit. Refills: 0. Misc Prescription (Test Strips) Use to test BS daily. Refills: 3. (more content not included)... Normal [facility] ED Note-Physicianon 01-25-20 ED Note-Physician ED Note-Physician Basic Information Time Seen: Lui Christiansen PA-C 01/24/2025 08:52 Chief Complaint PT REPORTS 4 FALLS THIS PAST WEEK, STATES HAD BACK INJECTIONS FOR PAIN A WEEK AGO. STATES LAST FALL YESTERDAY AND HAS L HIP PAIN AND CUT HER L EAR. UTD ON TDAP History of Present Illness Patient is a 64-year-old female that presents today for evaluation after multiple falls. Patient states that she had injections for her back pain about a week ago. She has had 4 falls since. She feels like her left hip continues to give out on her. She does catch herself each time she falls. She states that she had 1 earlier this morning and somehow cut her left ear but did not hit her head, lose consciousness and she is not on any blood thinners. She is up-to-date on her tetanus. She has been having some shortness of breath and chest tightness which has been ongoing for over a week. She has been using her inhalers as well as taking her medication without relief. Denies any nausea, vomiting, abdominal pain. Denies any headache or dizziness. Denies any neck or back pain. Review of Systems No other aggravating or relieving factors no other associated symptoms no other prior treatments or complaints. Family: Reviewed and noncontributory Social: lives at home Review of systems negative unless otherwise specified in the HPI. Physical Exam Vitals & Measurements T: 36.6 ???C(Oral) HR: 91(Monitored) RR: 20 BP: 154/95 SpO2: 95% HT: 168 cm WT: 159 kg BMI: 56.34 Nurses note and vital signs reviewed and noted. General: The patient appears well and in no apparent distress. Patient is resting comfortably on cart. GCS = 15. Skin: Warm, dry, no pallor noted. Head: Normocephalic. 2 cm nongaping laceration noted to the superior aspect of the left auricle of the left ear. Neck: Supple, trachea mid-line, no tenderness, no lymphadenopathy. No cervical spinal tenderness. The patient has no step-offs or crepitus noted Eyes: PERRLA, EOMI ENT: No rae sign, no raccoon eyes, no blood in posterior oropharynx, no dental injuries. White plaques noted to the tongue diffusely. Cardiovascular: Regular Rate and Rhythm, normal peripheral perfusion Respiratory: no distress, no accessory muscle use, no obvious wheezing Chest Wall: no tenderness, no flail chest, contusion, abrasion, or signs of trauma. Back: Back has no evidence of trauma, including contusion, abrasion, swelling or ecchymosis. The patient had no evidence of step-offs or crepitus noted. No tenderness to palpation. Musculoskeletal: Limited painful range of motion to the left hip with tenderness in this area. Pulses at femoral, DP, PT, and popiteal were 2+ bilaterally. Moves all four extremities in all modalities with 5/5 strength. GI: Soft, no tenderness to palpation, no masses appreciated. No rebound, guarding, or rigidity noted. Neurological: A&O, normal equal boat outfitter strength, normal speech, normal coordination, normal motor, normal sensory. Psychiatric: Cooperative Procedure Wound closure with glue- 2 cm nongaping laceration noted to the superior aspect of the left auricle of the left ear. I thoroughly irrigated the wound with copious amounts of normal saline. The laceration was inspected for evidence of foreign body. Given the superficial component of the laceration closure with suture was not necessary. Skin glue was placed superficially over top of the superficial laceration in order to help close the wound. Patient tolerated procedure well and no immediate complications were identified. Medical Decision Making Patient is a 64-year-old female who presents today for evaluation of her multiple falls. She had back injections about a week ago and has had 4 falls since. She feels like her left hip continues to give out on her which caused her to fall. She does usually catch herself. She had 1 earlier this morning and somehow cut her left ear but did not hit her head, lose conscious and she is not on any blood thinners. She is up-to-date on tetanus. She has been having shortness of breath and chest tightness has been ongoing for over a week now. On exam patient is afebrile and nontoxic-appearing. She is not tachycardic or hypotensive. No tachypnea. SpO2 95% room air. GCS of 15. PERRLA, EOMI. Unremarkable neuroexam. No chest wall or abdominal tenderness. Limited painful range of motion of the left hip with tenderness in the area. There is to palpation to the thoracic or lumbar spine. There is a 2 cm nongaping laceration noted to the superior aspect of the left auricle of the ear. Wound was closed with skin glue (please see above procedure note). EKG demonstrates NSR. Labs are WNL aside from chronic elevation in CO2 at 33 secondary to COPD. Troponin and BNP and WBC are all WNL. UA negative for UTI. Initially patient had an x-ray of the left hip and AP pelvis which demonstrated mild degenerative changes but no acute abnormality. Patient still had pain with difficulty walking and therefore CT was obtained. CT of the abdomen and p (more content not included)... Normal [facility] Comment on above: Result Comment: Elec tronically Signed By: Lui Christiansen PA-C\.br\Date and Time Signed: 01/24/25 16:12 EDT\.br\Electronically Co-Signed By: Oneal Newman DO\.br\Date and Time Co-Signed: 01/24/25 19:04 EDT ED Patient Summaryon 025 ED Patient Summary ED Patient Summary [place] [id number] Patient Discharge Instructions Person Information Name: CARMEN BLEDSOE Age: 64 Years Arrival Date: 01/24/2025 08:46:49 Discharge Diagnosis: COPD exacerbation; Laceration of left ear; Left hip pain; Low back pain; Multiple falls; Oral thrush; Osteoarthritis of hip; Shortness of breath Primary Care Physician: Yocasta MSN, 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PINSETTER MECHANIC AUTOMATIC, Myron Hamilton Provider Information Primary Provider: [employer] Ironworker:Lui Christiansen PA-C The exam and treatment you received in the Emergency Department were for an urgent problem and are not intended as complete care. It is important that you follow up with a doctor, nurse practitioner, or physician???s urology physician assistant for ongoing care. If your symptoms become worse or you do not improve as expected and you are unable to reach your usual health care provider, you should return to the Emergency Department. We are available 24 hours a day. CARMEN BLEDSOE has been given the following list of patient education materials, prescriptions and follow-up instructions: Follow-up Instructions: With: Address: When: Myron [address] [place] [id number] ScaleBase (1) In 3 days 01/27/2025 Comments: Please call primary care office for close outpatient follow-up regarding thrush, back and hip pain, COPD exacerbation. Take medication as prescribed. Return to ED if symptoms worsen or new symptoms arise. Please ambulate with assistance at home to prevent further falls. Return to ED if you have another fall. With: Address: When: [facility] [address] [place] [phone] [employer] (1) In 3 days 01/27/2025 Comments: Please call pain management clinic for close outpatient follow-up regarding lower back pain and left hip pain leading to multiple falls. Ambulate with assistance until follow-up. Return to ED if symptoms worsen or new symptoms arise. In the event that this physician does not participate in your insurance network, please consult with your insurance company to find a nearby participating provider. Patient Education Materials: Chronic Obstructive Pulmonary Disease Exacerbation; Tissue Adhesive Wound Care; Laceration Care, Adult; Fall Prevention in the Home, Adult; Osteoarthritis; Hip Pain A MESSAGE TO ALL PATIENTS REGARDING OPIOIDS PRESCRIPTION OPIOIDS: WHAT YOU NEED TO KNOW Prescription opioids can be used to help relieve agtesaje-ff-ivhhrs pain and are often prescribed following a surgery or injury, or for certain health conditions. These medications can be an important part of the treatment but also come with serious risks. It is important to work with your healthcare provider to make sure you are getting the safest, most effective care. WHAT ARE THE RISKS AND SIDE EFFECTS OF OPIOID USE? Prescription opioids carry serious risks of addiction and overdose, especially with prolonged use. An opioid overdose, often marked by slowed breathing, can cause sudden . The use of prescription opioids can have a number of side effects as well, even when taken as directed: ??? Tolerance???meaning you might need to take more of the medication for the same pain relief ??? Physical dependence???meaning you have symptoms of withdrawal when a medication is stopped ??? Increased sensitivity to pain ??? Constipation ??? Nausea, vomiting, and dry mouth ??? Sleepiness and dizziness ??? Confusion ??? Depression ??? Low levels of testosterone that can result in lower sex drive, energy, and strength ??? Itching and sweating RISKS ARE GREATER WITH: ??? History of drug misuse, substance use disorder, or overdose ??? Mental health conditions (such as depression or anxiety) ??? Sleep apnea ??? Older age (65 years and older) ??? Avoid alcohol while taking prescription opioids. Also, unless specifically advised by your health care provider, medications to avoid include: ??? Benzodiazepines (such as Xanax or Valium) ??? Muscle relaxants (such as Soma or Flexeril) ??? Hypnotics (such as Ambien or Lunesta) ??? Other prescription opioids KNOW YOUR OPTIONS Talk to your health care provider about ways to manage your pain that don???t involve prescription opioids. Some of these options may actually work better and have fewer risks and side effects. Options may include: ??? Pain relievers such as acetaminophen, ibuprofen, and naproxen ??? Some medication that are also used for depression or seizures ??? Physical therapy and exercise ??? Cognitive behavioral therapy, a psychological, goal-directed approach, in which patients learn how to modify physical, behavioral, and emotional triggers of pain and stress. IF YOU ARE PRESCRIBED OPIOIDS FOR PAIN: ??? Never take opioids in greater amounts or more often than prescribed. ??? Follow up with your prima (more content not included)... Normal [facility] PT & PTTon 01-24-2025 INR Coag (PPP) [Relative time] 1.00 {INR} Invalid Interpretation Code [facility] Comment on above: Result Comment: INR results are specifically intended to assess patients stabilized on long-term Anticoagulation therapy suggested INR???s ???Less Intensive Anticoagulation??? 2.0 ??? 3.0 Conventional Range 3.0 ??? 4.5 Performed By: #### 1 [id number] #### [facility] [address] [place] [address] PT 11.2 second(s) Normal 9.4-12.5 [facility] Comment on above: Result Comment: 15 d ays - 4 weeks 1 - 5 months 6 -11 months 1- 5 years 6-10 years 11 -17 years Mean: 11.2 (9.5-12.6) Mean: 11.0 (9.7-12.8) Mean: 11.0 (9.8-13.0) Mean: 11.3 (9.9-13.4) Mean: 11.7 (10.0-14.6) Mean: 11.8 (10.0 - 14.1) Pediatric Reference ranges were obtained from a study by adan Cruz prepared from 1437 samples obtained at 7 different centers using the same coagulation reagent and instrumentation as [facility]. Currently there are no coagulation studies available worldwide for children to 14 days, and no normal ranges. Performed By: #### 1 [id number] #### [facility] [address] [place] [address] PTT 32.6 second(s) Normal 25.1-36.5 [facility] Comment on above: Result Comment: Para meter 15 days - 4 weeks 1 - 5 months 6 - 11 months 1 - 5 years 6 - 10 years 11 - 17 years PTT Mean: 35.4 (27.6-45.6) Mean: 33.5 (24.8-40.7) Mean: 32.4 (25.1-40.7) Mean: 31.6 (24.0-39.2) Mean: 31.6 (26.9-38.7) Mean: 31.0 (24.6-38.4) Pediatric Reference ranges were obtained from a study by adan Cruz prepared from 1437 samples obtained at 7 different centers using the same coagulation reagent and instrumentation as [facility]. Currently there are no coagulation studies available worldwide for children to 14 days, and no normal ranges. Heparin therapeutic range (represented by Anti-Factor Xa activity of 0.2 - 0.4 U/mL) corresponds to PTT of 56.6 - 109.0 sec. Performed By: #### 1 [id number] #### [facility] [address] [place] [address] Troponin 0 Hr.on 01-24-2025 Troponin HS 4.50 pg/mL Low 10.10-27.10 [facility] Comment on above: Result Comment: The 95% CI (Confidence Interval) PPV (Positive Predictive Value) for myocardial infarction in females is 38 pg/mL, in males 51 pg/mL. The results should be used in conjunction with clinical conditions of myocardial infarction. (Access High Sensitivity Troponin I Instructions For Use, [employer], February 2018) Performed By: #### 1 [id number] #### [facility] [address] [place] [address] Troponin 1 Hr.on 01-24-2025 Troponin HS 3.90 pg/mL Low 10.10-27.10 [facility] Comment on above: Result Comment: The 95% CI (Confidence Interval) PPV (Positive Predictive Value) for myocardial infarction in females is 38 pg/mL, in males 51 pg/mL. The results should be used in conjunction with clinical conditions of myocardial infarction. (Access High Sensitivity Troponin I Instructions For Use, [employer], February 2018) Performed By: #### 1 [id number] #### [facility] [address] [place] [address] UA with Cult Rflxon 01-25-20 25 Color (U) Colorless Abnormal Yellow [facility] Comment on above: Result Comment: Micr oscopic readings are only performed on those samples that meet specific criteria set forth by [facility]. Performed By: #### 4 [id number] #### [facility] [address] [place] [address] Ketones Ql (U) Negative Normal Negative [facility] Comment on above: Performed By: #### 4 [id number] #### [facility] [address] [place] [address] UA Blood Negative Normal Negative [facility] Comment on above: Performed By: #### 4 [id number] #### [facility] [address] [place] [address] UA Clarity Clear Normal Clear [facility] Comment on above: Performed By: #### 4 [id number] #### [facility] [address] [place] [address] UA Glucose 3+ mg/dL Abnormal Negative [facility] Comment on above: Performed By: #### 4 [id number] #### [facility] [address] [place] [address] UA Leuk Est Negative Normal Negative [facility] Comment on above: Performed By: #### 4 [id number] #### [facility] [address] [place] [address] UA Nitrite Negative Normal Negative [facility] Comment on above: Performed By: #### 4 [id number] #### [facility] [address] [place] [address] UA pH 5.0 Invalid Interpretation Code 5.0-9.0 [facility] Comment on above: Performed By: #### 4 [id number] #### [facility] [address] [place] [address] UA Protein Negative Normal Negative [facility] Comment on above: Performed By: #### 4 [id number] #### [facility] [address] [place] [address] UA Spec Grav 1.016 Invalid Interpretation Code 1.005-1.030 [facility] Comment on above: Performed By: #### 4 [id number] #### [facility] [address] [place] [address] UA Urobilinogen Negative Normal Negative [facility] Comment on above: Performed By: #### 4 [id number] #### [facility] [address] [place] [address] Urobilinogen (U) [Mass/Vol] Negative Normal Negative [facility] Comment on above: Performed By: #### 4 [id number] #### [facility] [address] [place] [address] UA Spec Desc Clean Catch Normal [facility] Comment on above: Performed By: #### 4 [id number] #### [facility] [address] [place] [address] US Lower Extremity Venous Du plex Lefton 01-24-2025 US Lower Extremity Venous Duplex Left Exam Date/Time: 01/24/2025 13:05 EDT Reason for Exam: Pain Report IMPRESSION: NO LEFT LOWER EXTREMITY DVT IDENTIFIED. EXAM: US Lower Extremity Venous Duplex Left DATE: 01/24/2025 12:31 PM CLINICAL HISTORY: Pain. Technologist Comments: lt leg pain/edema. COMPARISON: CT abdomen and pelvis with contrast from earlier 01/24/2025, and bilateral lower extremity venous ultrasound 12/27/2024. TECHNIQUE: Grayscale, compression, color and waveform Doppler analysis of the left lower extremity venous systems was performed with augmentation. Spectral Doppler waveforms were evaluated for spontaneity, phasicity and appropriate augmentation. FINDINGS: The study is mild to moderately limited secondary to the patient's body habitus and lower extremity edema. There is no deep or superficial venous thrombosis, abnormal masses, organized fluid collections, or other findings of concern identified within the left lower extremity. No DVT present within the visualized right common femoral vein. Ordering Provider: Lui Christiansen FINAL REPORT Dictated: 01/24/2025 1:36 pm Byron Grider MD Signed (Electronic Signature): 01/24/2025 1:36 pm Signed by: Byron Grider MD Transcribed by: KARSTEN Technologist: Marcos RUBIN [facility] XR Chest Single Viewon 01-24 XR Chest Single View Exam Date/Time: 01/24/2025 09:47 EDT Reason for Exam: Cough Report IMPRESSION: CARDIOMEGALY AND PULMONARY VASCULAR CONGESTION. EXAM: XR Chest Single View History: Cough Technique: Portable AP view of the chest. Comparison: 12/27/2024 Findings: Heart size is mildly enlarged. Pulmonary vascular congestion. No pneumothorax, pleural effusion, or consolidation. No acute osseous abnormality. Ordering Provider: Lui Christiansen FINAL REPORT Dictated: 01/24/2025 11:01 am Braxton Norris DO Signed (Electronic Signature): 01/24/2025 11:01 am Signed by: Braxton Norris DO Transcribed by: KARSTEN Technologist: NICHOLAS Rodríguez [facility] XR Hip 2-3 Views Left + Pelv paola 01-24-2025 XR Hip 2-3 Views Left + Pelvis Exam Date/Time: 01/24/2025 09:47 EDT Reason for Exam: Pain, Traumatic Report IMPRESSION: NO ACUTE OSSEOUS ABNORMALITY. EXAMINATION: XR Hip 2-3 Views Left + Pelvis HISTORY: Hip pain COMPARISONS: None available TECHNIQUE: Frontal view of the pelvis and frontal and lateral views of the hip. FINDINGS: No acute proximal femur fracture. No hip dislocation. Mild left and moderate to advanced right hip osteoarthritis. Degenerative changes of the lower lumbar spine. Visualized bones of the pelvis are within normal limits. Soft tissues are within normal limits. Ordering Provider: Lui Christiansen FINAL REPORT Dictated: 01/24/2025 11:01 am Braxton Norris DO Signed (Electronic Signature): 01/24/2025 11:01 am Signed by: Braxton Norris DO Transcribed by: KARSTEN Technologist: NICHOLAS Normal [facility] eGFRon 01-24-2025 eGFR 83 mL/min/1.73 m2 Normal >=59 [facility] Comment on above: Performed By: #### 1 [id number] #### [facility] [address] [place] [address] Reminderson 01-21-2025 Reminders Reminders From: Gracy Maxwell R.N. To: [facility] Lacing String Cutter; Gracy Maxwell R.N.; Sent: 01/21/2025 12:29:37 EDT Show up: 01/21/2025 12:29:00 EDT Subject: theo #2 final Due Date/Time: 01/28/2025 12:29:00 EDT Reminder/Recall Normal [facility] Pulmonary Function Studieson 01-16-2025 Pulmonary Function Studies Pulmonary Function Studies PULMONARY FUNCTION TEST: 01/07/2025 REQUESTING PROVIDER: CARLO Atkinson REASON FOR TESTING: Moderate persistent asthma. Spirometry results are acceptable and reproducible. The FVC was 2.06 liters or 65% of predicted. FEV1 was 1.45 liters or 58% of predicted with a ratio of 71%. There was significant improvement in the FEV1 with the administration of bronchodilators of 15% from baseline. Lung volumes showed a total lung capacity of 84% of predicted, residual volume of 131% of predicted with a ratio of 55%. Diffusion capacity for carbon monoxide was 88% of predicted and when adjusted to alveolar volume at 120% of predicted. 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 There was a good response in the FEV1 to bronchodilator therapy. READ BY: Javier Hall M.D. ca Dictated: 01/12/2025 [id number] Transcribed: 01/15/2025 cc:CARLO Atkinson [facility] Comment on above: Result Comment: Elec tronically Signed By: Isabel SAMPSON, Javier Fernandes\.br\Date and Time Signed: 01/16/25 10:16 EDT Ambulatory Visit Summaryon 0 01-02-2025 Ambulatory Visit Summary Ambulatory Visit Summary CARMEN BLEDSOE :1960 Visit Date:01/02/2025 Ambulatory Visit Instructions Your Diagnosis Heart failure with preserved ejection fraction Obstructive sleep apnea Type 2 diabetes mellitus with morbid obesity Cigarette smoker Morbid obesity with BMI of 50.0-59.9, adult, Morbid (severe) obesity due to excess calories Your Care Team Attending Physician - Yocasta MSN, 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PINSETTER MECHANIC AUTOMATICMyron Primary Care Physician - Yocasta MSN, 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PINSETTER MECHANIC AUTOMATICMyron This Is Your Medications List nicotine (nicotine 21 mg/24 hr Transderm ER Film) Contact prescribing physician if questions or concerns Misc Prescription (Alcohol wipes) Misc Prescription (Glucometer) Misc Prescription (Lancets) Misc Prescription (Nebulizer Machine) Misc Prescription (Nebulizer Tubing and Mouthpiece Kit) Misc Prescription (Test Strips) albuterol (Albuterol (Eqv-Ventolin HFA) 90 mcg/inh inhalation aerosol) aripiprazole (Abilify 5 mg Tab) cephalexin (cephalexin 500 mg Cap) dulaglutide (Trulicity Pen 3 mg/0.5 mL subcutaneous solution) empagliflozin (Jardiance 10 mg oral tablet) fluoxetine (FLUoxetine 20 mg Cap) furosemide (furosemide 40 mg Tab) gabapentin (gabapentin 300 mg Cap) glipiZIDE (glipiZIDE 2.5 mg ER Tab) pantoprazole (Pantoprazole [address] Tab) potassium chloride (potassium chloride 20 mEq ER Tab) predniSONE (predniSONE 10 mg Tab) rosuvastatin (Crestor 40 mg Tab) spironolactone (spironolactone 25 mg Tab) Procedures Performed Colonoscopic polypectomy (12/23/2023), Colonoscopy (03/17/2020), Eye/lens implant bilat, Knee replacement, L foot bunion/reconstruction . Discharge Vitals Heart Rate (Peripheral) 78 Respiratory Rate 18 Blood Pressure 140/102 Height 168 cm Height 66 in Weight 159 kg Weight 350.535 lb BMI 56.34 What to do next Scheduled Follow-Up Appointments Tuesday 12:30 PM EDT With: Where: [facility] Tuesday 1:40 PM EDT With: Yocasta SMITH, Myron ESPINO Where: [place] [address] [place] [address]- You Need to Schedule the Following Appointments Follow Up with Yocasta SMITH, SRINIVAS, Myron Hamilton When: In 1 month Where: [address] [place] [phone] Medications What How Much When Why Instructions New nicotine (nicotine 21 mg/ 24 hr Transderm ER Film) 1 Patches Topical Every 24 hours Duration: 21 Days wear only one patch at a time, for 24 hours only Pickup at [facility] Unchanged albuterol (Albuterol (Eqv-Ventolin HFA) 90 mcg/ inh inhalation aerosol) 2 Puffs Inhalation Every 6 hours as needed for Shortness of breath or wheezing COPD with acute exacerbation Contact prescribing physician if questions or concerns Unchanged aripiprazole (Abilify 5 mg Tab) 1 Tablets By Mouth Every day Contact prescribing physician if questions or concerns Unchanged cephalexin (cephalexin 500 mg Cap) 1 Capsules By Mouth 4 times a day Cellulitis of leg Duration: 8 Days Contact prescribing physician if questions or concerns Unchanged dulaglutide (Trulicity Pen 3 mg/ 0.5 mL subcutaneous solution) See instructions ADMINISTER 3 MG UNDER THE SKIN EVERY WEEK Contact prescribing physician if questions or concerns Unchanged empagliflozin (Jardiance 10 mg oral tablet) 10 Milligram By Mouth Every day Contact prescribing physician if questions or concerns Unchanged fluoxetine (FLUoxetine 20 mg Cap) 2 Capsules By Mouth Every day Contact prescribing physician if questions or concerns Unchanged furosemide (furosemide 40 mg Tab) 1 Tablets By Mouth 2 times a day Peripheral edema (HFpEF) heart failure with preserved ejection fraction Contact prescribing physician if questions or concerns Unchanged gabapentin (gabapentin 300 mg Cap) 1 Capsules 3 times a day Contact prescribing physician if questions or [...] if questions or concerns Unchanged Misc Prescription (Nebulizer Machine) See instructions Moderate persistent asthma Nebulizer Machine Contact prescribing physician if questions or concerns Unchanged Misc Prescription (Nebulizer Tubing and Mouthpiece Kit) See instructions Moderate persistent asthma Nebulizer Tubing and Mouthpiece Kit Contact prescribing physician if questions or concerns Unchanged Misc Prescription (Test Strips) See instructions Type 2 diabetes mellitus with morbid obes (more content not included)... Normal [facility] CHEMISTRYOrdered By: Felicity Marin on 01-02-2025 Albumin DL <= 20 mg/L (U) [Mass/Vol] mg/dL Normal 0.0 - 1.9 mg/dL [facility] Albumin/Creatinine DL <= 20 mg/L (U) [Mass ratio] NOT CALCULATED Invalid Interpretation Code 0.0 - 30.0 [facility] Comment on above: Interpretive Data: 3 0-300 mg/g Cr indicates an increased risk for diabetic nephropathy. >300 mg/g Cr is consistent with clinical nephropathy. U Creatinine 17.8 mg/dL Invalid Interpretation Code [facility] Family Medicine Office/Clini c Noteon 01-02-2025 Family Medicine Office/Clinic Note Family Medicine Office/Clinic Note Chief Complaint Patient presents today for 2 week follow up and hospital follow up. The patient presents for management of multiple chronic conditions including heart failure, obesity, and diabetes. HPI Staff Patient is here for follow up on hypertension. How often are you checking your blood pressure? Not checking What are your average readings? n/a Are you compliant with your diet? yes Do you exercise? no Are you compliant with your medications? yes Do you have side effects from the medication? no Do you have any of the following symptoms? Chest Pain? no Palpitations? no CARMONA/SOB? yes Headache? no Peripheral Edema? no Light Headedness? no Patient is here for follow up on Diabetes. How often are you checking your blood sugars? 0 times per day What are your average readings? N/A Do you have low blood sugar readings/symptoms? Denies Do you have high blood sugar readings/symptoms? Denies Are you compliant with your diet? yes Do you exercise? no Are you compliant with your medications? Yes Having difficulty affording your medications? No Do you have any of the following symptoms? Vision problems? Denies GI-Nausea/committing/ bloating? Denies Lightheadedness? Denies Paresthesias, Ulcerations or sores? Denies History of Present Illness 64 Years old Female here for hospital follow-up for heart failure, accompanied by her friend. HPI staff / Chief Complaint confirmed with the patient Screening: Colon Cancer screenin12/23/2023 with a 3 months f/u recommended; this patient does _ have family history of colon cancer Breast cancer screenin ; this patient does _ have a family history of breast cancer Pap smear: 2019 DEXA: NA Labs: 07/13/2024 Diabetes/ prediabetes: Eye exam: few years ago, had cataract surgery Foot exam: 08/10/2023 done by [facility] A1c: Hgb A1C %: 6.1 % High (12/19/24 13:38:00) Hgb A1c POC: 5.1 % (02/22/24 13:58:00) Smokers/ former smokers: Low dose lung CT: _ Stress test: 10/20/2022: CONCLUSIONS: Negative Lexiscan nuclear stress test, overall low risk stress. Images were of fair quality due to large body habitus. Echocardiogram 11/08/2023: Interpretation Summary Grossly normal LV and RV. No significant valve disease. Cannot exclude regional wall motion abnormality. No estimated PA pressure. Impaired diastolic relaxation. (12/28/2024 10:03 EDT Echo Transthoracic Complete) Interpretation Summary The left ventricle is normal in size. mild left ventricular hypertrophy. Ejection Fraction = 60-65%. Grade I diastolic dysfunction, (abnormal relaxation pattern). [1] List of Providers Mathematical Physicist: Rick Hernandez PA-C Food Service Hotel Runner: Dr Phillip Orthopaedics: Dr Martinez LABS Cr/eGFR: eGFR: 98 mL/min/1.73 m2 (12/29/24 06:37:00) Creatinine: 0.7 mg/dL (12/29/24 06:37:00) A1c: Hgb A1C %: 6.1 % High (12/19/24 13:38:00) Hgb A1c POC: 5.1 % (02/22/24 13:58:00) TSH: TSH: 2.71 mcIU/mL (12/27/24 10:54:00) Vit D: No qualifying data available. LDL: LDL Direct: 97 mg/dL (07/13/24 11:18:00) Lipids: Chol: 163 mg/dL (07/13/24 11:18:00) HDL: 47 mg/dL (07/13/24 11:18:00) LDL Direct: 97 mg/dL (07/13/24 11:18:00) Tri mg/dL High (07/13/24 11:18:00) VLDL: 42 mg/dL High (07/13/24 11:18:00) Microalbumin: No qualifying data available. INR: INR: 0.96 (12/27/24 10:43:00) Future Appointments .CARDIO Appt. Date: 01/07/2025 12:30 PM Scheduled Provider: [facility] Pulmonary Function Lab Phone: -- Fax: -- The patient is presenting with management of heart failure, obesity, diabetes, and smoking cessation. She was admitted into the hospital and was discharged on 12/29/2024. The patient has a history of heart failure with preserved ejection fraction, which has been managed with diuretics such as Lasix and spironolactone. She recently had an exacerbation requiring hospitalization, where 13 pounds of fluid were removed with the help of IV Lasix. The patient was advised to avoid alcohol to prevent further complications. She did follow-up with her finished garment inspector yesterday and she is to follow-up with him in a month. The patient is also dealing with morbid obesity, with a BMI between 50.0 and 59.9. She has not been engaging in regular exercise due to difficulty breathing and physical limitations. The patient is considering chair exercises as a potential form of physical activity. The patient has type 2 diabetes mellitus, which is complicated by her obesity. She is currently on Trulicity and is awaiting a sleep study to potentially switch to another medication. Her blood sugar levels have been stable during hospital visits, but she does not monitor them regularly at home. The patient reports a yeast infection, likely secondary to antibiotic use, presenting as a rash along the panting line and under the arms. She has been prescribed Diflucan and a fungal powder for treatment. The patient also has a history of cellulitis, (more content not included)... Normal [facility] Comment on above: Result Comment: Elec tronically Signed By: Yocasta SMITH, 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 [employer], Myron Hamilton\.br\Date and Time Signed: 01/02/25 15:41 EDT U MA/Cr Ratioon 01-02-2025 Microalb/Cr Ratio NOT CALCULATED Invalid Interpretation Code .0-30.0 [facility] Comment on above: Result Comment: 30-3 00 mg/g Cr indicates an increased risk for diabetic nephropathy. >300 mg/g Cr is consistent with clinical nephropathy. Performed By: #### 1 [id number] #### [facility] [address] [place] [address] U Creatinine 17.8 mg/dL Invalid Interpretation Code [facility] Comment on above: Performed By: #### 1 [id number] #### [facility] [address] [place] [address] U Microalb <0.7 Normal 0.0-1.9 [facility] Comment on above: Performed By: #### 1 [id number] #### [facility] [address] [place] [address] Heart and Vascular Office/Cl inic Noteon 01-01-2025 Heart and Vascular Office/Clinic Note Heart and Vascular Office/Clinic Note Chief Complaint 6 month follow up, HTN, Peripheral edema, HLD History of Present Illness Patient is a 64-year-old female with past medical history of hypertension, cigarette smoking, GERD, HFpEF, history of alcohol abuse, hyperlipidemia, asthma, BRENDA, type 2 diabetes. Echo from 11/2023 showed grossly normal EF with normal LV and RV and no significant valve disease, regional wall motion abnormality could not be excluded. Patient comes in for 6-month follow-up today. Reviewed prior echoes. At last visit, I saw patient at which time she was continued on current medications. Patient was hospitalized since her last visit with me from 12/27/2024 through 12/29/2024 due to swelling in lower extremities and shortness of breath. Patient was diagnosed with acute heart failure exacerbation while she was in the hospital and Lasix was increased to 40 mg twice daily upon discharge. Patient is also taking Jardiance, spironolactone to help out with heart/swelling. Patient reports that she has been doing much better since being discharged from the hospital a few days ago. Patient reports that she is not having nearly as much swelling as she was prior to hospitalization. Patient reports that she has been compliant with increased dose of Lasix to 40 mg twice daily and that has been helping to keep her swelling down. Patient is still taking potassium supplementation of KCl 20M EQ daily. Patient reports that her breathing has improved as well. She states that she still is having some shortness of breath, but is not nearly as bad as it was. She does have PFTs scheduled for tomorrow or in the near future to look into COPD further. Did discuss getting a stress test given patient's ongoing issues with shortness of breath, but she believes they are lung related would like to see how she is doing at next follow-up before getting stress test. Patient denies chest pain, heart palpitations, dizziness/lightheaded ness. REVIEWED PRIOR NOTE FROM 06/05/2024: Patient comes in for 6-month follow-up today. At last visit, patient saw Dr. Ramirez at which time she was continued on current medications. Patient reports that she has been doing well since last visit. Patient reports that she is diagnosed with congestive heart failure 1 time when she went to the ER and she was very full fluid. However, patient reports she is not sure if this was an accurate diagnosis and she states she was drinking alcohol very heavily at the time. She states that she has been 8 months sober now and has been doing very well. She states that she has not had any swelling at all here in the recent past. She is compliant with Lasix 40 mg daily, spironolactone 25 mg daily, potassium chloride 20 mEq daily. Patient has well-controlled blood pressure in the office today. She is not taking any additional medications for blood pressure other than what is listed above. Patient denies chest pain, shortness of breath, heart palpitations, dizziness/lightheaded ness, and swelling in lower legs. Review of Systems PHQ Score Initial Depression Screen Score: 0 SCORE ROS - Provider Constitutional: no fever, no chills, no sweats, no weakness Respiratory: yes shortness of breath, no cough Cardiovascular: no chest pain, positive for swelling to lower extremities Neuro: no dizziness. no loss of consciousness Physical Exam Vitals & Measurements HR: 74(Peripheral) RR: 22 BP: 130/80 SpO2: 95% HT: 66 in HT: 168 cm WT: 356.487 lb WT: 161.7 kg BMI: 57.29 General: alert, no acute distress Cardiovascular: regular rate and rhythm, no murmur normal peripheral perfusion Respiratory: Lungs: Mild expiratory wheeze in right upper lobe and right lower lobe. Left lobes clear to also Tatian, respirations non labored Extremities: 1+ edema left lower extremity. Trace edema right lower extremity Neurological: oriented x 4, LOC appropriate for age, speech normal Skin: Warm, dry, intact- no rash or concerning lesions Cardiac Diagnostics (12/28/2024 10:03 EDT Echo Transthoracic Complete) Interpretation Summary The left ventricle is normal in size. mild left ventricular hypertrophy. Ejection Fraction = 60-65%. Grade I diastolic dysfunction, (abnormal relaxation pattern). [1] (11/08/2023 15:28 EDT Echo Transthoracic Complete) Interpretation Summary Grossly normal LV and RV. No significant valve disease. Cannot exclude regional wall motion abnormality. No estimated PA pressure. Impaired diastolic relaxation. Assessment/Plan 1. (HFpEF) heart failure with preserved ejection fraction (I50.30: Unspecified diastolic (congestive) heart failure) Patient has history of peripheral edema. She was diagnosed with acute diastolic heart failure when she was in the hospital in 12/2024. Lasix dose was increased to 40 mg twice daily which patient reports has significantly helped her swelling. Patient does admit to drinking some alcohol since last visit and that is what initially led to swelling, but (more content not included)... Normal [facility] Comment on above: Result Comment: Elec tronically Signed By: David LEONARD, Rick Gipson\.hardik\Date and Time Signed: 01/01/25 14:28 EDT [facility] 01-01-20 [facility] Case Information Case Priority: None Programs: -- Referral Source: System Operation Superintendent Referral Reason: Care coordination Case Type: Transition Care Management Risk Score: -- Case Status: Enrolled (December 31, 2024) Date Assigned: December 31, 2024 Assigned By: Gracy Maxwell R.N. Date Enrolled: December 31, 2024 Assigned Primary Personnel: Gracy Maxwell R.N. Assigned Secondary Personnel: -- Case Physician: Yocasta SMITH, 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[employer], Myron Hamilton Problems Ongoing Alcohol abuse, in remission Alcohol problem drinking Benign hypertension Bilateral hip pain Bilateral leg edema BMI 50.0-59.9, adult Chronic insomnia Cigarette smoker Elevated LFTs Elevated liver transaminase level Fatty liver GA (granuloma annulare) GERD (gastroesophageal reflux disease) Heart failure with preserved ejection fraction Hepatomegaly History of alcohol abuse History of colon polyps Hypokalemia Left hand weakness Low vitamin D level Marijuana user Mixed hyperlipidemia Moderate persistent asthma Morbid obesity with BMI of 50.0-59.9, adult Neurogenic claudication Non-insulin dependent type 2 diabetes mellitus Obstructive sleep apnea Restless leg syndrome Right hip pain Sciatica Seborrheic keratoses Severe major depression Shortness of breath on exertion Skin tags, multiple acquired Smoker Type 2 diabetes mellitus with morbid obesity Uterine fibroid Historical COPD exacerbation Tubular adenoma of colon Procedure/Surgical History Colonoscopic polypectomy (12/23/2023), Colonoscopy (03/17/2020), Eye/lens implant bilat, Knee replacement, L foot bunion/reconstruction . Home Medications Abilify 5 mg Tab, 5 mg= 1 tab(s), Oral, Daily, 4 refills Albuterol (Eqv-Ventolin HFA) 90 mcg/inh inhalation aerosol, 2 puff(s), Inhalation, q6hr, PRN, 1 refills Alcohol wipes, See Instructions, 3 refills azithromycin 250 mg Tab, 250 mg= 1 tab(s), Oral, Daily cephalexin 500 mg Cap, 500 mg= 1 cap(s), Oral, QID Crestor 40 mg Tab, 40 mg= 1 tab(s), Oral, Daily, 3 refills FLUoxetine 20 mg Cap, 40 mg= 2 cap(s), Oral, Daily, 4 refills furosemide 40 mg Tab, 40 mg= 1 tab(s), Oral, BID gabapentin 300 mg Cap, 300 mg= 1 cap(s), TID glipiZIDE 2.5 mg ER Tab, 2.5 mg= 1 tab(s), Oral, Daily, 1 refills Glucometer, See Instructions Jardiance 10 mg oral tablet, 10 mg, Oral, Daily, 4 refills Lancets, See Instructions, 3 refills Nebulizer Machine, See Instructions Nebulizer Tubing and Mouthpiece Kit, See Instructions Pantoprazole [address] Tab, 40 mg= 1 tab(s), Oral, Daily, 3 refills potassium chloride 20 mEq ER Tab, 20 mEq= 1 tab(s), Oral, Daily, 1 refills predniSONE 10 mg Tab, 10 mg= 1 tab(s), Oral, As Directed spironolactone 25 mg Tab, 25 mg= 1 tab(s), Oral, Daily, 1 refills Test Strips, See Instructions, 3 refills Trulicity Pen 3 mg/0.5 mL subcutaneous solution, See Instructions Allergies amLODIPine (Leg Edema) lisinopril (Persistent cough, Tongue swelling) metFORMIN (Diarrhea) Social History Alcohol Current, 1-2 times per week, Alcohol use interferes with work or home: No. Drinks more than intended: No. Others hurt by drinking: No. Ready to change: No. Household alcohol concerns: No., 12/27/2024 1-2 times per month, 12/27/2024 Past, Liquor, Daily, 16 drinks/episode average. 16.00 drinks/episode maximum. Started age 18 Years. Stopped age 61 Years. Previous treatment: Inpatient. Alcohol use interferes with work or home: No. Drinks more than intended: Yes. Others hurt by drinking: No. Household alcohol concerns: No., 11/02/2023 Substance Abuse Marijuana, 1-2 times per year, 12/27/2024 Current, Marijuana, pain pills, 1-2 times per month, Previous treatment: Treatment center. Started age 42 Years. Stopped age 52 Years. IV drug use: No. Drug use interferes with work/home: Yes. Ready to change: Yes. Household substance abuse concerns: No., 09/24/2022 DENIES, Household substance abuse concerns: No., 09/22/2022 Tobacco 10 or more cigarettes (1/2 pack or more)/day in last 30 days Tobacco Use:. Never Smokeless Tobacco Use:. Cigarettes, Started age 17.0 Years., 12/27/2024 10 or more cigarettes (1/2 pack or more)/day in last 30 days Tobacco Use:., 12/27/2024 10 or more cigarettes (1/2 pack or more)/day in last 30 days Tobacco Use:. Never Smokeless Tobacco Use:. Cigarettes, 1 per day. 43 year(s). Total pack years: 15. Started age 18.0 Years. Previous treatment: None. Ready to change: Yes. Household tobacco concerns: No., 12/19/2024 Family History Hypertension: Mother, Sister and Brother. Liver cancer: Father. Stomach cancer: Mother. Screenings and Assessments 12/31/24 09:55:00 Result Name Value Comment Phone Call Monitoring Consent Agreed to continue call Phone Verification Patient Information Full name, street address and date of verified CM Program Enrollment Provides verbal consent for enrollment Goals and Intervention (more content not included)... Normal [facility] Coding Queryon 12-30-2024 Coding Query Coding Query From: Catarino Wood RN To: Abisai Kaur III, DO; Sent: 12/28/2024 06:54:34 EDT ! Subject: Coding Query Due Date/Time: 12/29/2024 06:53:00 EDT Caller Name: CARMEN BLEDSOE; Caller Number: Cuca , Mita Clinical evidence indicates that this patient has used drugs. 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 Please select at least one item from each category. Substance [___]Opioid [___]Other psychoactive substance [___]Other: Use: [___]Abuse Complication: [___]In remission [___]Other: In responding to this request, please exercise your independent professional judgement. The fact that a question is asked does not imply that any particular answer is desired or expected. Thank you![email or web address] [phone] Opioid abuse in remission From: Abisai Kaur III, DO To: Catarino Wood RN; Sent: 12/30/2024 13:50:00 EDT Subject: RE: Coding Query Caller Name: CARMEN BLEDSOE; Caller Number: Cuca , M Normal [facility] BMPon 12-29-2024 Anion gap [Moles/Vol] 10 mmol/L Normal 6-16 [facility] Comment on above: Performed By: #### 2 [id number] #### [facility] [address] [place] [address] BUN/Creat Ratio 30 No Units High 10-20 [facility] Comment on above: Performed By: #### 2 [id number] #### [facility] [address] [place] [address] Calcium [Mass/Vol] 9.1 mg/dL Normal 8.9-11.1 [facility] Comment on above: Performed By: #### 2 [id number] #### [facility] [address] [place] [address] Chloride [Moles/Vol] 98 mmol/L Low 101-111 [facility] Comment on above: Performed By: #### 2 [id number] #### [facility] [address] [place] [address] CO2 [Moles/Vol] 31 mmol/L Normal 21-[address] [facility] Comment on above: Performed By: #### 2 [id number] #### [facility] [address] [place] [address] Creatinine [Mass/Vol] 0.7 mg/dL Normal 0.5-1.3 [facility] Comment on above: Performed By: #### 2 [id number] #### [facility] [address] [place] [address] Glucose [Mass/Vol] 185 mg/dL Normal 55-199 [facility] Comment on above: Performed By: #### 2 [id number] #### [facility] [address] [place] [address] Potassium [Moles/Vol] 4.2 mmol/L Normal 3.5-5.3 [facility] Comment on above: Performed By: #### 2 [id number] #### [facility] [address] [place] [address] Sodium [Moles/Vol] 135 mmol/L Normal 135-145 [facility] Comment on above: Performed By: #### 2 [id number] #### [facility] [address] [place] [address] Urea nitrogen [Mass/Vol] 21 mg/dL Normal 5-21 [facility] Comment on above: Performed By: #### 2 [id number] #### [facility] [address] [place] [address] CBC w/ Auto Diffon 12-29- 5 Basophil Absolute 0.1 E9/L Normal 0.0-0.2 [facility] Comment on above: Performed By: #### 2 [id number] #### [facility] [address] [place] [address] Basophils/100 WBC (Bld) 0.6 % Normal 0.0-2.0 [facility] Comment on above: Performed By: #### 2 [id number] #### [facility] [address] [place] [address] Eos Absolute 0.0 E9/L Normal 0.0-0.5 [facility] Comment on above: Performed By: #### 2 [id number] #### [facility] [address] [place] [address] Eosinophils/100 WBC (Bld) 0.0 % Normal 0.0-8.0 [facility] Comment on above: Performed By: #### 2 [id number] #### [facility] [address] [place] [address] Erythrocyte distribution width (RBC) [Ratio] 15.6 % High 10.9-14.2 [facility] Comment on above: Performed By: #### 2 [id number] #### [facility] [address] [place] [address] Hematocrit (Bld) [Volume fraction] 39.3 % Normal 34.0-46.0 [facility] Comment on above: Performed By: #### 2 [id number] #### [facility] [address] [place] [address] Hemoglobin (Bld) [Mass/Vol] 13.0 g/dL Normal 12.0-16.0 [facility] Comment on above: Performed By: #### 2 [id number] #### [facility] [address] [place] [address] Lymph Absolute 0.6 E9/L Low 1.0-4.0 [facility] Comment on above: Performed By: #### 2 [id number] #### [facility] [address] [place] [address] Lymphocytes/100 WBC (Bld) 6.3 % Low 14.0-50.0 [facility] Comment on above: Performed By: #### 2 [id number] #### [facility] [address] [place] [address] MCH (RBC) [Entitic mass] 30.4 pg Normal 27.0-34.0 [facility] Comment on above: Performed By: #### 2 [id number] #### [facility] [address] [place] [address] MCHC (RBC) [Mass/Vol] 33.2 g/dL Normal 31.4-36.0 [facility] Comment on above: Performed By: #### 2 [id number] #### [facility] [address] [place] [address] MCV (RBC) [Entitic vol] 91.6 fL Normal 80.0-100.0 [facility] Comment on above: Performed By: #### 2 [id number] #### [facility] [address] [place] [address] [place] Absolute 0.5 E9/L Normal 0.2-1.0 [facility] Comment on above: Performed By: #### 2 [id number] #### [facility] [address] [place] [address] Monocytes/100 WBC (Bld) 5.0 % Normal 4.0-14.0 [facility] Comment on above: Performed By: #### 2 [id number] #### [facility] [address] [place] [address] Neutro Absolute 8.3 E9/L High 2.0-7.[address] [facility] Comment on above: Performed By: #### 2 [id number] #### [facility] [address] [place] [address] Neutro Auto 88.1 % High 36.0-75.0 [facility] Comment on above: Performed By: #### 2 [id number] #### [facility] [address] [place] [address] Platelet 286.0 E9/L Normal 150.0-500.0 [facility] Comment on above: Performed By: #### 2 [id number] #### [facility] [address] [place] [address] Platelet mean volume (Bld) [Entitic vol] 7.3 fL Normal 6.4-10.8 [facility] Comment on above: Performed By: #### 2 [id number] #### [facility] [address] [place] [address] RBC 4.3 E12/L Normal 4.3-5.9 [facility] Comment on above: Performed By: #### 2 [id number] #### [facility] [address] [place] [address] WBC 9.4 E9/L Normal 4.0-11.0 [facility] Comment on above: Performed By: #### 2 [id number] #### [facility] [address] [place] [address] CHEMISTRYOrdered By: Vandana YAN User on 12-29-2024 Glucose [Mass/Vol] 200 mg/dL High 55 - 99 mg/dL [facility] C POC Subsection Comment on above: Result Comment: Loraine peralta RN/ POC Username JUSTYNA BARNES Invalid Interpretation Code [facility] POC Subsection Sodium [Moles/Vol] [id number] mmol/L Invalid Interpretation Code [facility] POC Subsection Sodium [Moles/Vol] [id number] mmol/L Invalid Interpretation Code [facility] POC Subsection Glucose [Mass/Vol] 166 mg/dL High 55 - 99 mg/dL [facility] C POC Subsection Comment on above: Result Comment: Loraine peralta RN/ POC UsernamHAYDEN Crotez Invalid Interpretation Code [facility] POC Subsection Sodium [Moles/Vol] [id number] mmol/L Invalid Interpretation Code [facility] POC Subsection Sodium [Moles/Vol] [id number] mmol/L Invalid Interpretation Code [facility] POC Subsection CHEMISTRYOrdered By: SYSTEM SYSTEM on 12-29-2024 Anion gap [Moles/Vol] 10 mmol/L Normal 6 - 16 mEq/L [facility] Calcium [Mass/Vol] 9.1 mg/dL Normal 8.9 - 11.1 mg/dL [facility] Chloride [Moles/Vol] 98 mmol/L Low 101 - 111 mmol/ L [facility] CO2 [Moles/Vol] 31 mmol/L Normal 21 - 31 mmol/L Remis ol Chem Creatinine [Mass/Vol] 0.7 mg/dL Normal 0.5 - 1.3 mg/dL [facility] GFR/1.73 sq M.predicted MDRD (S/P/Bld) [Vol rate/Area] 98 mL/min/1.73 m2 Normal >=59mL/min/1.73 m2 [facility] Chem Glucose [Mass/Vol] 185 mg/dL Normal 55 - 199 mg/dL Re misol Chem Potassium [Moles/Vol] 4.2 mmol/L Normal 3.5 - 5.3 mmol/L Remisol Chem Sodium [Moles/Vol] 135 mmol/L Normal 135 - 145 mmol/L Remisol Chem Urea nitrogen [Mass/Vol] 21 mg/dL Normal 5 - 21 mg/dL Remisol Chem Urea nitrogen/Creatinine [Mass ratio] 30 mg/mg High 10 - 20 Remisol Chem Capillary Glucose POCon 12-03 Glucose [Mass/Vol] 200 mg/dL High 55-99 [facility] Comment on above: Result Comment: Loraine GODOY Performed By: #### 2 [id number] #### [facility] [address] [place] [address] Glucose [Mass/Vol] 166 mg/dL High 55-99 [facility] Comment on above: Result Comment: Loraine peralta RN/ Performed By: #### 2 [id number] #### [facility] [address] [place] [address] HEMATOLOGYOrdered By: SYSTEM SYSTEM on 12-29-2024 Basophils/100 WBC (Bld) 0.6 % Normal 0.0 - 2.0 % Remisol Heme Basophils/Leukocytes Auto (Bld) [Pure # fraction] 0.1 E9/L Normal 0.0 - 0.2 E9/L Remisol Heme Eosinophils (Bld) [#/Vol] 0.0 E9/L Normal 0.0 - 0.5 E9/L Remisol Heme Eosinophils/100 WBC (Bld) 0.0 % Normal 0.0 - 8.0 % Remisol Heme Erythrocyte distribution width (RBC) [Ratio] 15.6 % High 10.9 - 14.2 % Remisol Heme Hematocrit (Bld) [Volume fraction] 39.3 % Normal 34.0 - 46.0 % Remisol Heme Hemoglobin (Bld) [Mass/Vol] 13.0 g/dL Normal 12.0 - 16.0 gm/dL Remisol Heme Lymphocytes (Bld) [#/Vol] 0.6 E9/L Low 1.0 - 4.0 E9/L Remisol Heme Lymphocytes/100 WBC (Bld) 6.3 % Low 14.0 - 50.0 % Remisol Heme MCH (RBC) [Entitic mass] 30.4 pg Normal 27.0 - 34.0 pg Remisol Heme MCHC (RBC) [Mass/Vol] 33.2 g/dL Normal 31.4 - 36.0 gm/dL Remisol Heme MCV (RBC) [Entitic vol] 91.6 fL Normal 80.0 - 100.0 fL Remisol Heme Monocytes (Bld) [#/Vol] 0.5 E9/L Normal 0.2 - 1.0 E9/L Remisol Heme Monocytes/100 WBC (Bld) 5.0 % Normal 4.0 - 14.0 % Remisol Heme Neutrophils (Bld) [#/Vol] 8.3 E9/L High 2.0 - 7.5 E9/L Remisol Heme Neutrophils/100 WBC (Bld) 88.1 % High 36.0 - 75.0 % Remisol Heme Platelet mean volume (Bld) [Entitic vol] 7.3 fL Normal 6.4 - 10.8 fL Remisol Heme Platelets (Bld) [#/Vol] 286.0 E9/L Normal 150.0 - 500.0 E9/L Remisol Heme RBC (Bld) [#/Vol] 4.3 E12/L Normal 4.3 - 5.9 E12/L Re misol Heme WBC corrected for nucl RBC Auto (Bld) [#/Vol] 9.4 E9/L Normal 4.0 - 11.0 E9/L Remisol Heme Inpatient Patient Summaryon 12-29-2024 Inpatient Patient Summary Inpatient Patient Summary CARMEN BLEDSOE :1960 Visit Date:12/27/2024 Inpatient Discharge Instructions Your Care Team Admitting Physician - Abisai Kaur III, DO Reason for Your Visit Shortness od breath, edema Your Diagnosis Acute on chronic heart failure with preserved ejection fraction COPD with acute exacerbation Cellulitis of leg Elevated troponin Alcohol abuse, in remission Non-insulin dependent type 2 diabetes mellitus Morbid obesity with BMI of 50.0-59.9, adult Obstructive sleep apnea Severe major depression GERD (gastroesophageal reflux disease) Nicotine use disorder Benign hypertension Edema Mixed hyperlipidemia Peripheral edema Shortness of breath Wheezing Tests Performed Echo Transthoracic Complete Lower Extremity Venous Duplex US Bilateral XR Chest Single View This Is Your Medications List Misc Prescription (Alcohol wipes) Misc Prescription (Glucometer) Misc Prescription (Lancets) Misc Prescription (Nebulizer Machine) Misc Prescription (Nebulizer Tubing and Mouthpiece Kit) Misc Prescription (Test Strips) albuterol (Albuterol (Eqv-Ventolin HFA) 90 mcg/inh inhalation aerosol) aripiprazole (Abilify 5 mg Tab) azithromycin (azithromycin 250 mg Tab) cephalexin (cephalexin 500 mg Cap) dulaglutide (Trulicity Pen 3 mg/0.5 mL subcutaneous solution) empagliflozin (Jardiance 10 mg oral tablet) fluoxetine (FLUoxetine 20 mg Cap) furosemide (furosemide 40 mg Tab) gabapentin (gabapentin 300 mg Cap) glipiZIDE (glipiZIDE 2.5 mg ER Tab) pantoprazole (Pantoprazole [address] Tab) potassium chloride (potassium chloride 20 mEq ER Tab) predniSONE (predniSONE 10 mg Tab) rosuvastatin (Crestor 40 mg Tab) spironolactone (spironolactone 25 mg Tab) Procedure History Colonoscopic polypectomy (12/23/2023), Colonoscopy (03/17/2020), Eye/lens implant bilat, Knee replacement, L foot bunion/reconstruction . Discharge Vitals Temperature (Oral) 36.7 ???C Heart Rate (Monitored) 64 Respiratory Rate 18 Blood Pressure 151/78 What to do next Instructions From Your Doctor Event Name Event Result Discharge Activity Ambulate as tolerated Discharge Diet(s) Regular Pending Diagnostic Test Results None Discharge Instructions Wear compression socks/stockings daily and off at night. Discuss inceased lasix dose with your finished garment inspector. May discuss adding Entresto or Losartan as outpatient too to help with your heart failure. Return to ER if symptoms return or wrosen Previously Scheduled Follow-Up Appointments Tuesday 2:00 PM EDT With: David LEONARD, Rick Gipson Where: [facility] [place] Tuesday 1:40 PM EDT With: Yocasta MSN, 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, Myron Hamilton Where: [facility] [place] [address] [place] [address]- Tuesday 12:30 PM EDT With: Where: [facility] New Follow Up Appointments after Discharge Follow Up with Follow up with your finished garment inspector as Scheduled January 01 When: Follow Up with Myron Rust When: Within 7 to 10 days Comments: Call for followup appointment Where: [address] [place] [address] [phone] Business (1) Medications What How Much When Why Instructions Next Dose New azithromycin (azithromycin 250 mg Tab) 1 Tablets By Mouth Every day COPD with acute exacerbation Duration: 3 Days Pickup at [facility] New predniSONE (predniSONE 10 mg Tab) 1 Tablets By Mouth As Directed COPD with acute exacerbation 4 tabs for 2 days,3 tabs for 2 days,2 tabs for 2 days,1 tab for 2 days Pickup at [facility] Changed cephalexin (cephalexin 500 mg Cap) 1 Capsules By Mouth 4 times a day Cellulitis of leg Duration: 8 Days Pickup at [facility] Changed furosemide (furosemide 40 mg Tab) 1 Tablets By Mouth 2 times a day Peripheral edema Acute on chronic heart failure with preserved ejection fraction Pickup at [facility] Unchanged albuterol (Albuterol (Eqv-Ventolin HFA) 90 mcg/ inh inhalation aerosol) 2 Puffs Inhalation Every 6 hours as needed for Shortness of breath or wheezing COPD with acute exacerbation Pickup at [facility] Unchanged aripiprazole (Abilify 5 mg Tab) 1 Tablets By Mouth Every day Unchanged dulaglutide (Trulicity Pen 3 mg/ 0.5 mL subcutaneous solution) See instructions ADMINISTER 3 MG UNDER THE SKIN EVERY WEEK Unchanged empagliflozin (Jardiance 10 mg oral tablet) 10 Milligram By Mouth Every day Unchanged fluoxetine (FLUoxetine 20 mg Cap) 2 Capsules By Mouth Every day Unchanged gabapentin (gabapentin 300 mg Cap) 1 Capsules 3 times a day Unchanged glipiZIDE (glipiZIDE 2.5 mg ER Tab) 1 Tablets By Mouth Every day Unchanged Misc Prescription (Alcohol wipes) See instructions Use to check BS daily dx E11.9 Unchanged Misc Prescription (Glucometer) See instructions Glucometer to test BS TID and P (more content not included)... Normal [facility] eGFRon 12-29-2024 eGFR 98 mL/min/1.73 m2 Normal >=59 [facility] Comment on above: Performed By: #### 1 [id number] #### [facility] [address] [place] [address] CBC w/ Auto Diffon 5 Basophil Absolute 0.1 E9/L Normal 0.0-0.2 [facility] Comment on above: Performed By: #### 2 [id number] #### [facility] [address] [place] [address] Basophils/100 WBC (Bld) 1.6 % Normal 0.0-2.0 [facility] Comment on above: Performed By: #### 2 [id number] #### [facility] [address] [place] [address] Eos Absolute 0.0 E9/L Normal 0.0-0.5 [facility] Comment on above: Performed By: #### 2 [id number] #### [facility] [address] [place] [address] Eosinophils/100 WBC (Bld) 0.1 % Normal 0.0-8.0 [facility] Comment on above: Performed By: #### 2 [id number] #### [facility] [address] [place] [address] Erythrocyte distribution width (RBC) [Ratio] 15.7 % High 10.9-14.2 [facility] Comment on above: Performed By: #### 2 [id number] #### [facility] [address] [place] [address] Hematocrit (Bld) [Volume fraction] 40.0 % Normal 34.0-46.0 [facility] Comment on above: Performed By: #### 2 [id number] #### [facility] [address] [place] [address] Hemoglobin (Bld) [Mass/Vol] 13.7 g/dL Normal 12.0-16.0 [facility] Comment on above: Performed By: #### 2 [id number] #### [facility] [address] [place] [address] Lymph Absolute 0.4 E9/L Low 1.0-4.0 [facility] Comment on above: Performed By: #### 2 [id number] #### [facility] [address] [place] [address] Lymphocytes/100 WBC (Bld) 4.8 % Low 14.0-50.0 [facility] Comment on above: Performed By: #### 2 [id number] #### [facility] [address] [place] [address] MCH (RBC) [Entitic mass] 31.4 pg Normal 27.0-34.0 [facility] Comment on above: Performed By: #### 2 [id number] #### [facility] [address] [place] [address] MCHC (RBC) [Mass/Vol] 34.3 g/dL Normal 31.4-36.0 [facility] Comment on above: Performed By: #### 2 [id number] #### [facility] [address] [place] [address] MCV (RBC) [Entitic vol] 91.7 fL Normal 80.0-100.0 [facility] Comment on above: Performed By: #### 2 [id number] #### [facility] [address] [place] [address] [place] Absolute 0.1 E9/L Low 0.2-1.0 [facility] Comment on above: Performed By: #### 2 [id number] #### [facility] [address] [place] [address] Monocytes/100 WBC (Bld) 1.8 % Low 4.0-14.0 [facility] Comment on above: Performed By: #### 2 [id number] #### [facility] [address] [place] [address] Neutro Absolute 7.4 E9/L Normal 2.0-7.[address] [facility] Comment on above: Performed By: #### 2 [id number] #### [facility] [address] [place] [address] Neutro Auto 91.7 % High 36.0-75.0 [facility] Comment on above: Performed By: #### 2 [id number] #### [facility] [address] [place] [address] Platelet 274.0 E9/L Normal 150.0-500.0 [facility] Comment on above: Performed By: #### 2 [id number] #### [facility] [address] [place] [address] Platelet mean volume (Bld) [Entitic vol] 7.4 fL Normal 6.4-10.8 [facility] Comment on above: Performed By: #### 2 [id number] #### [facility] [address] [place] [address] RBC 4.4 E12/L Normal 4.3-5.9 [facility] Comment on above: Performed By: #### 2 [id number] #### [facility] [address] [place] [address] WBC 8.1 E9/L Normal 4.0-11.0 [facility] Comment on above: Performed By: #### 2 [id number] #### [facility] [address] [place] [address] CHEMISTRYOrdered By: Lab ROP User on 12-28-2024 Glucose [Mass/Vol] 217 mg/dL High 55 - 99 mg/dL [facility] C POC Subsection Comment on above: Result Comment: Loraine peralta RN/ POC Username HAYDEN MAYERS Invalid Interpretation Code [facility] POC Subsection Sodium [Moles/Vol] [id number] mmol/L Invalid Interpretation Code [facility] POC Subsection Sodium [Moles/Vol] [id number] mmol/L Invalid Interpretation Code [facility] POC Subsection CHEMISTRYOrdered By: SYSTEM SYSTEM on 12-28-2024 Albumin [Mass/Vol] 4.5 g/dL Normal 3.3 - 5.0 gm/dL R emisol Chem Albumin/Globulin [Mass ratio] 1.4 {ratio} Normal 1.1 - 2.2 Remisol Chem ALP [Catalytic activity/Vol] 62 [iU]/d Normal 21 - 98 Int._Unit/L Remisol Chem ALT No additional P-5'-P [Catalytic activity/Vol] 24 [iU]/d Normal 6 - 46 Int._Unit/L Remisol Chem Anion gap [Moles/Vol] 14 mmol/L Normal 6 - 16 mEq/L Remisol Chem AST [Catalytic activity/Vol] 20 [iU]/d Normal 5 - 43 Int._Unit/L Remisol Chem Bilirubin [Mass/Vol] 0.4 mg/dL Normal 0.0 - 1.1 mg/dL Remisol Chem Calcium [Mass/Vol] 9.2 mg/dL Normal 8.9 - 11.1 mg/dL Remisol Chem Chloride [Moles/Vol] 97 mmol/L Low 101 - 111 mmol/ L Remisol Chem CO2 [Moles/Vol] 28 mmol/L Normal 21 - 31 mmol/L Remis ol Chem Creatinine [Mass/Vol] 0.7 mg/dL Normal 0.5 - 1.3 mg/dL Remisol Chem GFR/1.73 sq M.predicted MDRD (S/P/Bld) [Vol rate/Area] 98 mL/min/1.73 m2 Normal >=59mL/min/1.73 m2 Remisol Chem Globulin (S) [Mass/Vol] 3.3 g/dL Normal 1.4 - 4.0 gm/dL Remisol Chem Glucose [Mass/Vol] 157 mg/dL Normal 55 - 199 mg/dL Re misol Chem Potassium [Moles/Vol] 4.0 mmol/L Normal 3.5 - 5.3 mmol/L Remisol Chem Protein [Mass/Vol] 7.8 g/dL Normal 6.0 - 7.8 gm/dL R emisol Chem Sodium [Moles/Vol] 135 mmol/L Normal 135 - 145 mmol/L Remisol Chem Urea nitrogen [Mass/Vol] 14 mg/dL Normal 5 - 21 mg/dL Remisol Chem Urea nitrogen/Creatinine [Mass ratio] 20 mg/mg Normal 10 - 20 Remisol Chem CMPon 12-28-2024 Albumin [Mass/Vol] 4.5 g/dL Normal 3.3-5.0 [facility] Comment on above: Performed By: #### 2 [id number] #### [facility] [address] [place] [address] Albumin/Globulin [Mass ratio] 1.4 {ratio} Normal 1.1-2.2 [facility] Comment on above: Performed By: #### 2 [id number] #### [facility] [address] [place] [address] Alk Phos 62 Int._Unit/L Normal 21-98 [facility] Comment on above: Performed By: #### 2 [id number] #### [facility] [address] [place] [address] ALT 24 Int._Unit/L Normal 6-46 [facility] Comment on above: Performed By: #### 2 [id number] #### [facility] [address] [place] [address] Anion gap [Moles/Vol] 14 mmol/L Normal 6-16 [facility] Comment on above: Performed By: #### 2 [id number] #### [facility] [address] [place] [address] AST 20 Int._Unit/L Normal 5-43 [facility] Comment on above: Performed By: #### 2 [id number] #### [facility] [address] [place] [address] Bili Total 0.4 mg/dL Normal 0.0-1.1 [facility] Comment on above: Performed By: #### 2 [id number] #### [facility] [address] [place] [address] BUN/Creat Ratio 20 No Units Normal 10-20 [facility] Comment on above: Performed By: #### 2 [id number] #### [facility] [address] [place] [address] Calcium [Mass/Vol] 9.2 mg/dL Normal 8.9-11.1 [facility] Comment on above: Performed By: #### 2 [id number] #### [facility] [address] [place] [address] Chloride [Moles/Vol] 97 mmol/L Low 101-111 [facility] Comment on above: Performed By: #### 2 [id number] #### [facility] [address] [place] [address] CO2 [Moles/Vol] 28 mmol/L Normal 21-[address] [facility] Comment on above: Performed By: #### 2 [id number] #### [facility] [address] [place] [address] Creatinine [Mass/Vol] 0.7 mg/dL Normal 0.5-1.3 [facility] Comment on above: Performed By: #### 2 [id number] #### [facility] [address] [place] [address] Globulin (S) [Mass/Vol] 3.3 g/dL Normal 1.4-4.0 [facility] Comment on above: Performed By: #### 2 [id number] #### [facility] [address] [place] [address] Glucose [Mass/Vol] 157 mg/dL Normal 55-199 [facility] Comment on above: Performed By: #### 2 [id number] #### [facility] [address] [place] [address] Potassium [Moles/Vol] 4.0 mmol/L Normal 3.5-5.3 [facility] Comment on above: Performed By: #### 2 [id number] #### [facility] [address] [place] [address] Protein [Mass/Vol] 7.8 g/dL Normal 6.0-7.8 [facility] Comment on above: Performed By: #### 2 [id number] #### [facility] [address] [place] [address] Sodium [Moles/Vol] 135 mmol/L Normal 135-145 [facility] Comment on above: Performed By: #### 2 [id number] #### [facility] [address] [place] [address] Urea nitrogen [Mass/Vol] 14 mg/dL Normal 5-21 [facility] Comment on above: Performed By: #### 2 [id number] #### [facility] [address] [place] [address] Capillary Glucose POCon 12-03 Glucose [Mass/Vol] 217 mg/dL High 55-99 [facility] Comment on above: Result Comment: Loraine GODOY Performed By: #### 2 [id number] #### [facility] [address] [place] [address] Glucose [Mass/Vol] 193 mg/dL High 55-99 [facility] Comment on above: Result Comment: Loraine GODOY Performed By: #### 2 [id number] #### [facility] [address] [place] [address] Glucose [Mass/Vol] 162 mg/dL High 55-99 [facility] Comment on above: Result Comment: Loraine GODOY Performed By: #### 2 [id number] #### [facility] [address] [place] [address] Glucose [Mass/Vol] 154 mg/dL High 55-99 [facility] Comment on above: Result Comment: Loraine GODOY Performed By: #### 2 [id number] #### [facility] [address] [place] [address] Coding Queryon 12-28-2024 Coding Query Coding Query From: Catarino Wood RN To: Abisai Kaur III, DO; Sent: 12/28/2024 06:54:34 EDT ! Subject: Coding Query Due Date/Time: 12/29/2024 06:53:00 EDT Caller Name: CARMEN BLEDSOE; Caller Number: Cuca , Mita Clinical evidence indicates that this patient has used drugs. 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 Please select at least one item from each category. Substance [___]Opioid [___]Other psychoactive substance [___]Other: Use: [___]Abuse Complication: [___]In remission [___]Other: In responding to this request, please exercise your independent professional judgement. The fact that a question is asked does not imply that any particular answer is desired or expected. Thank you![email or web address] [id number] Normal [facility] HEMATOLOGYOrdered By: SYSTEM SYSTEM on 12-28-2024 Basophils/100 WBC (Bld) 1.6 % Normal 0.0 - 2.0 % Remisol Heme Basophils/Leukocytes Auto (Bld) [Pure # fraction] 0.1 E9/L Normal 0.0 - 0.2 E9/L Remisol Heme Eosinophils (Bld) [#/Vol] 0.0 E9/L Normal 0.0 - 0.5 E9/L Remisol Heme Eosinophils/100 WBC (Bld) 0.1 % Normal 0.0 - 8.0 % Remisol Heme Erythrocyte distribution width (RBC) [Ratio] 15.7 % High 10.9 - 14.2 % Remisol Heme Hematocrit (Bld) [Volume fraction] 40.0 % Normal 34.0 - 46.0 % Remisol Heme Hemoglobin (Bld) [Mass/Vol] 13.7 g/dL Normal 12.0 - 16.0 gm/dL Remisol Heme Lymphocytes (Bld) [#/Vol] 0.4 E9/L Low 1.0 - 4.0 E9/L Remisol Heme Lymphocytes/100 WBC (Bld) 4.8 % Low 14.0 - 50.0 % Remisol Heme MCH (RBC) [Entitic mass] 31.4 pg Normal 27.0 - 34.0 pg Remisol Heme MCHC (RBC) [Mass/Vol] 34.3 g/dL Normal 31.4 - 36.0 gm/dL Remisol Heme MCV (RBC) [Entitic vol] 91.7 fL Normal 80.0 - 100.0 fL Remisol Heme Monocytes (Bld) [#/Vol] 0.1 E9/L Low 0.2 - 1.0 E9/L Remisol Heme Monocytes/100 WBC (Bld) 1.8 % Low 4.0 - 14.0 % Remisol Heme Neutrophils (Bld) [#/Vol] 7.4 E9/L Normal 2.0 - 7.5 E9/L Remisol Heme Neutrophils/100 WBC (Bld) 91.7 % High 36.0 - 75.0 % Remisol Heme Platelet mean volume (Bld) [Entitic vol] 7.4 fL Normal 6.4 - 10.8 fL Remisol Heme Platelets (Bld) [#/Vol] 274.0 E9/L Normal 150.0 - 500.0 E9/L Remisol Heme RBC (Bld) [#/Vol] 4.4 E12/L Normal 4.3 - 5.9 E12/L Re misol Heme WBC corrected for nucl RBC Auto (Bld) [#/Vol] 8.1 E9/L Normal 4.0 - 11.0 E9/L Remisol Heme Interdisciplinary Note - Janak e Manageron 12-28-2024 Interdisciplinary Note - Transplant Case Manager Interdisciplinary Note - Transplant Case Manager CRM to room 321 Patient is awake, alert and oriented. Patient is from home lives with her Brother. Patient neighbor is her ride at [place]. Patient PLOF is independent in self care. She does not use DME but does have cane and walker. Patient verified her DME, PCP and insurance. Patient is an inpatient. Patient came in with CP, SOB Swelling. Patient has h/o CHF. Patient is assigned to Dr Kaur, see notes. Patient was on oxygen but has been weaned to RA. Patient declined any concerns to return home. Patient declined any needs for DME, HH or Paramed. Patient was provided CRM contact, white board updated. CRM following CRM will get updates at 10 AM huddle with hospitalists ECHO today Possible [facility] Comment on above: Result Comment: Elec tronically Signed By: Clara Gold\.br\Date and Time Signed: 12/28/24 12:02 EDT Interdisciplinary Note - Transplant Case Manager Interdisciplinary Note - Transplant Case Manager CRM to room 321 Patient is awake, alert and oriented. Patient is from home lives with her Brother. Patient neighbor is her ride at [place]. Patient PLOF is independent in self care. She does not use DME but does have cane and walker. Patient verified her DME, PCP and insurance. Patient is an inpatient. Patient came in with CP, SOB Swelling. Patient has h/o CHF. Patient is assigned to Dr Kaur, see notes. Patient was on oxygen but has been weaned to RA. Patient declined any concerns to return home. Patient declined any needs for DME, HH or Paramed. Patient was provided CRM contact, white board updated. CRM following CRM will get updates at 10 AM huddle with hospitalists [facility] Comment on above: Result Comment: Elec tronically Signed By: Clara Gold\.br\Date and Time Signed: 12/28/24 08:39 EDT US Lower Extremity Venous Du plex Bilateralon 12-28-2024 Lower Extremity Venous Duplex Bilateral Exam Date/Time: 12/27/2024 18:23 EDT Reason for Exam: Edema Report IMPRESSION: Limitations from patient body habitus. Some vessels not visualized. No evidence for DVT in the visualized veins of the bilateral legs. CLINICAL HISTORY: Bilateral leg swelling and calf pain. TECHNIQUE: Jackson scale with compression maneuvers, Color Doppler and Spectral Doppler at rest and with augmentation of the BILATERAL leg proximal deep veins as below. Darling scale with compression maneuvers of the peroneal and posterior tibial veins was performed. Images were obtained and stored in a permanent archive. COMPARISON: None. RESULT: Limitations from patient body habitus. RIGHT LEG: PROXIMAL DEEP VEINS: External iliac vein: Not visualized. Common Femoral Vein: Compressibility with spontaneous phasic flow and augmentation. Deep Femoral Vein: Not visualized. Femoral Vein: Compressibility with spontaneous phasic flow and augmentation. Not visualized in mid segment. Popliteal Vein: Compressibility with spontaneous phasic flow and augmentation. DEEP CALF VEINS: Posterior Tibial Vein: Normal compression Peroneal Vein: Not visualized. SUPERFICIAL VEIN: Greater Saphenous Vein: Compressible with spontaneous phasic flow were visualized, not well visualized at the junction. LEFT LEG: PROXIMAL DEEP VEINS: External iliac vein: Not visualized. Common Femoral Vein: Compressibility with spontaneous phasic flow and augmentation. Deep Femoral Vein: Not visualized. Femoral Vein: Compressibility with spontaneous phasic flow and augmentation. Not visualized in mid segment. Popliteal Vein: Compressibility with spontaneous phasic flow and augmentation. DEEP CALF VEINS: Posterior Tibial Vein: Normal compression Peroneal Vein: Not visualized. SUPERFICIAL VEIN: Greater Saphenous Vein: Compressibility with spontaneous phasic flow where visualized, not visualized at the junction. Report Ordering Provider: Abisai Kaur FINAL REPORT Dictated: 12/28/2024 10:18 am Sathya Christianson MD Signed (Electronic Signature): 12/28/2024 10:18 am Signed by: Sathya Christianson MD Transcribed by: KARSTEN Technologist: SRB Normal [facility] eGFRon 12-28-2024 eGFR 98 mL/min/1.73 m2 Normal >=59 [facility] Comment on above: Performed By: #### 1 [id number] #### [facility] [address] [place] [address] BMPon 12-27-2024 Anion gap [Moles/Vol] 12 mmol/L Normal 6-16 [facility] Comment on above: Performed By: #### 2 [id number] #### [facility] [address] [place] [address] BUN/Creat Ratio 18 No Units Normal 10-20 [facility] Comment on above: Performed By: #### 2 [id number] #### [facility] [address] [place] [address] Calcium [Mass/Vol] 8.9 mg/dL Normal 8.9-11.1 [facility] Comment on above: Performed By: #### 2 [id number] #### [facility] [address] [place] [address] Chloride [Moles/Vol] 100 mmol/L Low 101-111 [facility] Comment on above: Performed By: #### 2 [id number] #### [facility] [address] [place] [address] CO2 [Moles/Vol] 27 mmol/L Normal 21-[address] [facility] Comment on above: Performed By: #### 2 [id number] #### [facility] [address] [place] [address] Creatinine [Mass/Vol] 0.8 mg/dL Normal 0.5-1.3 [facility] Comment on above: Performed By: #### 2 [id number] #### [facility] [address] [place] [address] Glucose [Mass/Vol] 147 mg/dL Normal 55-199 [facility] Comment on above: Performed By: #### 2 [id number] #### [facility] [address] [place] [address] Potassium [Moles/Vol] 3.9 mmol/L Normal 3.5-5.3 [facility] Comment on above: Performed By: #### 2 [id number] #### [facility] [address] [place] [address] Sodium [Moles/Vol] 135 mmol/L Normal 135-145 [facility] Comment on above: Performed By: #### 2 [id number] #### [facility] [address] [place] [address] Urea nitrogen [Mass/Vol] 14 mg/dL Normal 5-21 [facility] Comment on above: Performed By: #### 2 [id number] #### [facility] [address] [place] [address] BNPon 12-27-2024 Int Ctr BNP Pass Normal [facility] Comment on above: Performed By: #### 1 [id number] #### [facility] [address] [place] [address] Natriuretic peptide B (Bld) [Mass/Vol] 20 pg/mL Normal 5-80 [facility] Comment on above: Performed By: #### 1 [id number] #### [facility] [address] [place] [address] CBC w/ Auto Diffon 5 Basophil Absolute 0.1 E9/L Normal 0.0-0.2 [facility] Comment on above: Performed By: #### 2 [id number] #### [facility] [address] [place] [address] Basophils/100 WBC (Bld) 0.8 % Normal 0.0-2.0 [facility] Comment on above: Performed By: #### 2 [id number] #### [facility] [address] [place] [address] Eos Absolute 0.1 E9/L Normal 0.0-0.5 [facility] Comment on above: Performed By: #### 2 [id number] #### [facility] [address] [place] [address] Eosinophils/100 WBC (Bld) 1.0 % Normal 0.0-8.0 [facility] Comment on above: Performed By: #### 2 [id number] #### [facility] [address] [place] [address] Erythrocyte distribution width (RBC) [Ratio] 15.6 % High 10.9-14.2 [facility] Comment on above: Performed By: #### 2 [id number] #### [facility] [address] [place] [address] Hematocrit (Bld) [Volume fraction] 37.2 % Normal 34.0-46.0 [facility] Comment on above: Performed By: #### 2 [id number] #### [facility] [address] [place] [address] Hemoglobin (Bld) [Mass/Vol] 13.2 g/dL Normal 12.0-16.0 [facility] Comment on above: Performed By: #### 2 [id number] #### [facility] [address] [place] [address] Lymph Absolute 0.9 E9/L Low 1.0-4.0 [facility] Comment on above: Performed By: #### 2 [id number] #### [facility] [address] [place] [address] Lymphocytes/100 WBC (Bld) 12.1 % Low 14.0-50.0 [facility] Comment on above: Performed By: #### 2 [id number] #### [facility] [address] [place] [address] MCH (RBC) [Entitic mass] 32.2 pg Normal 27.0-34.0 [facility] Comment on above: Performed By: #### 2 [id number] #### [facility] [address] [place] [address] MCHC (RBC) [Mass/Vol] 35.5 g/dL Normal 31.4-36.0 [facility] Comment on above: Performed By: #### 2 [id number] #### [facility] [address] [place] [address] MCV (RBC) [Entitic vol] 90.8 fL Normal 80.0-100.0 [facility] Comment on above: Performed By: #### 2 [id number] #### [facility] [address] [place] [address] [place] Absolute 0.4 E9/L Normal 0.2-1.0 [facility] Comment on above: Performed By: #### 2 [id number] #### [facility] [address] [place] [address] Monocytes/100 WBC (Bld) 5.3 % Normal 4.0-14.0 [facility] Comment on above: Performed By: #### 2 [id number] #### [facility] [address] [place] [address] Neutro Absolute 5.8 E9/L Normal 2.0-7.[address] [facility] Comment on above: Performed By: #### 2 [id number] #### [facility] [address] [place] [address] Neutro Auto 80.8 % High 36.0-75.0 [facility] Comment on above: Performed By: #### 2 [id number] #### [facility] [address] [place] [address] Platelet 240.0 E9/L Normal 150.0-500.0 [facility] Comment on above: Performed By: #### 2 [id number] #### [facility] [address] [place] [address] Platelet mean volume (Bld) [Entitic vol] 7.2 fL Normal 6.4-10.8 [facility] Comment on above: Performed By: #### 2 [id number] #### [facility] [address] [place] [address] RBC 4.1 E12/L Low 4.3-5.9 [facility] Comment on above: Performed By: #### 2 [id number] #### [facility] [address] [place] [address] WBC 7.2 E9/L Normal 4.0-11.0 [facility] Comment on above: Performed By: #### 2 [id number] #### [facility] [address] [place] [address] CHEMISTRYOrdered By: SYSTEM SYSTEM on 12-27-2024 Troponin HS 27.70 pg/mL High 10.10 - 27.10 pg/mL [facility] Comment on above: Interpretive Data: T he 95% CI (Confidence Interval) PPV (Positive Predictive Value) for myocardial infarction in females is 38 pg/mL, in males 51 pg/mL. The results should be used in conjunction with clinical conditions of myocardial infarction. (Access High Sensitivity Troponin I Instructions For Use, [employer], February 2018) Troponin HS 28.80 pg/mL High 10.10 - 27.10 pg/mL [facility] Comment on above: Interpretive Data: T he 95% CI (Confidence Interval) PPV (Positive Predictive Value) for myocardial infarction in females is 38 pg/mL, in males 51 pg/mL. The results should be used in conjunction with clinical conditions of myocardial infarction. (Access High Sensitivity Troponin I Instructions For Use, [employer], February 2018) Troponin HS 28.80 pg/mL High 10.10 - 27.10 pg/mL [facility] Comment on above: Interpretive Data: T he 95% CI (Confidence Interval) PPV (Positive Predictive Value) for myocardial infarction in females is 38 pg/mL, in males 51 pg/mL. The results should be used in conjunction with clinical conditions of myocardial infarction. (Access High Sensitivity Troponin I Instructions For Use, [employer], February 2018) Albumin [Mass/Vol] 4.3 g/dL Normal 3.3 - 5.0 gm/dL R emisol Chem Albumin/Globulin [Mass ratio] 1.4 {ratio} Normal 1.1 - 2.2 [facility] ALP [Catalytic activity/Vol] 62 [iU]/d Normal 21 - 98 Int._Unit/L [facility] ALT No additional P-5'-P [Catalytic activity/Vol] 23 [iU]/d Normal 6 - 46 Int._Unit/L [facility] Anion gap [Moles/Vol] 12 mmol/L Normal 6 - 16 mEq/L [facility] AST [Catalytic activity/Vol] 21 [iU]/d Normal 5 - 43 Int._Unit/L [facility] Bilirubin [Mass/Vol] 0.4 mg/dL Normal 0.0 - 1.1 mg/dL [facility] Bilirubin.direct [Mass/Vol] 0.1 mg/dL Normal 0.0 - 0.4 mg/dL [facility] Bilirubin.indirect [Mass or moles/Vol] 0.3 mg/dL Normal 0.1 - 0.9 mg/dL [facility] Calcium [Mass/Vol] 8.9 mg/dL Normal 8.9 - 11.1 mg/dL [facility] Chloride [Moles/Vol] 100 mmol/L Low 101 - 111 mmol/ L [facility] CO2 [Moles/Vol] 27 mmol/L Normal 21 - 31 mmol/L Remis ol Chem Creatinine [Mass/Vol] 0.8 mg/dL Normal 0.5 - 1.3 mg/dL [facility] GFR/1.73 sq M.predicted MDRD (S/P/Bld) [Vol rate/Area] 83 mL/min/1.73 m2 Normal >=59mL/min/1.73 m2 [facility] Globulin (S) [Mass/Vol] 3.0 g/dL Normal 1.4 - 4.0 gm/dL [facility] Glucose [Mass/Vol] 147 mg/dL Normal 55 - 199 mg/dL Re misol Chem Lactate [Moles/Vol] 1.2 mmol/L Normal 0.5 - 2.2 mmol/L [facility] Potassium [Moles/Vol] 3.9 mmol/L Normal 3.5 - 5.3 mmol/L [facility] Procalcitonin 0.08 ng/mL Normal 0.00 - 0.50 ng/mL [facility] Comment on above: Interpretive Data: < 0.5 ng/mL Low risk of severe sepsis and/or shock >2.0 ng/mL High risk of severe sepsis and/or shock Concentrations under 0.5 ng/mL do not exclude local infections or systemic infections in their initial stages (e.g.. under six hours from onset of illness). PCT concentrations between 0.5 and 2.0 ng/mL should be interpreted with consideration of the patient's history. In this range, it is recommended to retest PCT within 6 to 24 hours. Protein [Mass/Vol] 7.3 g/dL Normal 6.0 - 7.8 gm/dL R emisol Chem Sodium [Moles/Vol] 135 mmol/L Normal 135 - 145 mmol/L [facility] TSH Qn 2.71 m[IU]/L Normal 0.34 - 5.60 mcIU/mL [facility] Urea nitrogen [Mass/Vol] 14 mg/dL Normal 5 - 21 mg/dL [facility] Urea nitrogen/Creatinine [Mass ratio] 18 mg/mg Normal 10 - 20 [facility] CHEMISTRYOrdered By: Liv newsome on 12-27-2024 Natriuretic peptide B (Bld) [Mass/Vol] 20 pg/mL Normal 5 - 80 pg/mL [facility] COAGULATIONOrdered By: Liv John on 12-27-2024 aPTT Coag (PPP) [Time] 31.4 s Normal 25.1 - 36.5 second(s) [facility] Comment on above: Interpretive Data: P karolina 15 days - 4 weeks 1 - 5 months 6 - 11 months 1 - 5 years 6 - 10 years 11 - 17 years PTT Mean: 35.4 (27.6-45.6) Mean: 33.5 (24.8-40.7) Mean: 32.4 (25.1-40.7) Mean: 31.6 (24.0-39.2) Mean: 31.6 (26.9-38.7) Mean: 31.0 (24.6-38.4) Pediatric Reference ranges were obtained from a study by Minor Choudhury et al. prepared from 1437 samples obtained at 7 different centers using the same coagulation reagent and instrumentation as [facility]. Currently there are no coagulation studies available worldwide for children to 14 days, and no normal ranges. Heparin therapeutic range (represented by Anti-Factor Xa activity of 0.2 - 0.4 U/mL) corresponds to PTT of 56.6 - 109.0 sec. INR Coag (PPP) [Relative time] 0.96 {INR} Invalid Interpretation Code [facility] Comment on above: Interpretive Data: I NR results are specifically intended to assess patients stabilized on long-term Anticoagulation therapy suggested INR s Less Intensive Anticoagulation 2.0 3.0 Conventional Range 3.0 4.5 PT Coag (PPP) [Time] 10.7 s Normal 9.4 - 1 2.5 second(s) [facility] Comment on above: Interpretive Data: 1 5 days - 4 weeks 1 - 5 months 6 -11 months 1-5 years 6-10 years 11 -17 years Mean: 11.2 (9.5-12.6) Mean: 11.0 (9.7-12.8) Mean: 11.0 (9.8-13.0) Mean: 11.3 (9.9-13.4) Mean: 11.7 (10.0-14.6) Mean: 11.8 (10.0 - 14.1) Pediatric Reference ranges were obtained from a study by Minor Choudhury et al. prepared from 1437 samples obtained at 7 different centers using the same coagulation reagent and instrumentation as [facility]. Currently there are no coagulation studies available worldwide for children to 14 days, and no normal ranges. Capillary Glucose POCon 12-03 Glucose [Mass/Vol] 157 mg/dL High 55-99 [facility] Comment on above: Result Comment: Loraine GODOY Performed By: #### 2 [id number] #### [facility] [address] [place] [address] Glucose [Mass/Vol] 87 mg/dL Normal 55-99 [facility] Comment on above: Result Comment: Loraine GODOY Performed By: #### 2 [id number] #### [facility] [address] [place] [id number] ED Clinical Summaryon 2024 ED Clinical Summary ED Clinical Summary [address] [address] ED Clinical Summary Person Information Name: CARMEN BLEDSOE/[facility] Age: 64 Years : 1960 Sex: Female Language: Latvian PCP: Yocasta SMITH, 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Myron VILLATORO Marital Status: Single Visit Id: Visit Reason: Wheezing; Shortness of breath; Edema; cp, sob, swelled feet and legs Speciality: Acuity: 2 Enc Type: Inpatient Med Service: Medical Arrival: 12/27/2024 10:31:36 Discharge: LOS: 000 04:47 Checkin: 12/27/2024 10:31:36 Checkout: 12/27/2024 15:18:27 Dispo Type: Admitted as IP to this [facility] EVENTS: Event Name Event Status Request Date/Time Start Date/Time Complete Date/Time Arrive Complete 12/27/2024 10:31:36 12/27/2024 10:31:36 12/27/2024 10:31:36 Document Home Meds Request 12/27/2024 10:31:36 Triage Complete 12/27/2024 10:31:36 12/27/2024 10:40:46 12/27/2024 10:40:46 Bed Assign Complete 12/27/2024 10:34:40 12/27/2024 10:34:40 12/27/2024 10:34:40 Dr Exam Complete 12/27/2024 10:34:40 12/27/2024 10:36:07 12/27/2024 10:36:07 RN Exam Complete 12/27/2024 10:34:40 12/27/2024 11:00:53 12/27/2024 11:00:53 Registration Complete 12/27/2024 10:36:07 12/27/2024 10:36:56 12/27/2024 10:36:56 Reg Complete Request 12/27/2024 10:36:56 Reg Bed Request Complete 12/27/2024 10:36:56 12/27/2024 10:36:56 12/27/2024 10:36:56 EKG Complete 12/27/2024 10:38:09 12/27/2024 10:43:50 Pending Labs Inlab 12/27/2024 10:47:54 Lab Inlab 12/27/2024 10:47:54 Meds Admin Complete 12/27/2024 10:47:54 12/27/2024 10:58:04 Patient Care Request 12/27/2024 10:47:54 X-Ray Complete 12/27/2024 10:47:54 12/27/2024 10:58:13 12/27/2024 11:06:50 RT Request 12/27/2024 10:47:54 RT Tx/ABG Request 12/27/2024 10:47:55 RT Tx/ABG Request 12/27/2024 10:47:55 Pending Labs Complete 12/27/2024 10:51:33 12/27/2024 10:51:33 12/27/2024 11:18:55 Lab Complete 12/27/2024 10:51:33 12/27/2024 10:51:33 12/27/2024 11:18:55 Pending Labs Cancel 12/27/2024 10:59:53 12/27/2024 11:01:02 Pending Labs Complete 12/27/2024 11:01:25 12/27/2024 11:01:25 12/27/2024 11:25:48 Wet Read Request 12/27/2024 11:06:50 Pending Labs Complete 12/27/2024 11:19:03 12/27/2024 11:19:03 12/27/2024 11:19:03 Meds Admin Complete 12/27/2024 11:39:23 12/27/2024 11:56:03 Meds Admin Complete 12/27/2024 11:39:45 12/27/2024 11:56:04 Consult Request 12/27/2024 11:40:39 Hospitalist Consult Request 12/27/2024 11:40:40 Pending Labs Request 12/27/2024 12:01:00 Meds Admin Complete 12/27/2024 12:02:54 12/27/2024 12:05:06 RT Tx/ABG Request 12/27/2024 12:02:54 RT Tx/ABG Request 12/27/2024 12:02:54 Meds Admin Complete 12/27/2024 12:52:21 12/27/2024 14:03:13 Admit Request 12/27/2024 13:58:50 Patient Care Request 12/27/2024 13:58:50 Patient Care Request 12/27/2024 13:58:51 Patient Care Request 12/27/2024 13:58:51 Patient Care Request 12/27/2024 13:58:51 Patient Care Request 12/27/2024 13:58:51 Patient Care Request 12/27/2024 13:58:53 Patient Care Request 12/27/2024 13:58:53 Pending Labs Request 12/27/2024 13:59:15 Lab Request 12/27/2024 13:59:15 Patient Care Request 12/27/2024 14:03:23 Meds Admin Request 12/27/2024 14:03:23 Echo Request 12/27/2024 14:06:57 Meds Admin Request 12/27/2024 14:06:57 Pending Labs Request 12/27/2024 14:06:57 RT Tx/ABG Request 12/27/2024 14:06:58 RT Tx/ABG Request 12/27/2024 14:06:58 RT Tx/ABG Request 12/27/2024 14:06:59 RT Tx/ABG Request 12/27/2024 14:06:59 Meds Admin Request 12/27/2024 14:13:03 US Request 12/27/2024 14:13:45 ADDRESS: [facility] [place] [id number] PHYS DOC NOTES: MEDICAL INFORMATION: Prescriptions Given: Medications to Continue with No Changes Other Medications albuterol (Albuterol (Eqv-Ventolin HFA) 90 mcg/inh inhalation aerosol) 2 Puffs Inhalation every 6 hours as needed Shortness of breath or wheezing. Refills: 3. aripiprazole (Abilify 5 mg Tab) 1 Tablets By Mouth every day. Refills: 4. cephalexin (cephalexin 500 mg Cap) 1 Capsules By Mouth every 12 hours for 10 Days. Refills: 0. dulaglutide (Trulicity Pen 3 mg/0.5 mL subcutaneous solution) ADMINISTER 3 MG UNDER THE SKIN EVERY WEEK. Refills: 0. empagliflozin (Jardiance 10 mg oral tablet) 10 Milligram By Mouth every day. Refills: 4. fluoxetine (FLUoxetine 20 mg Cap) 2 Capsules By Mouth every day. Refills: 4. furosemide (furosemide 40 mg Tab) 1 Tablets By Mouth every day. Refills: 1. gabapentin (gabapentin 300 mg Cap) 1 Capsules 3 times a day. glipiZIDE (glipiZIDE 2.5 mg ER Tab) 1 Tablets By Mouth every day. Refills: 1. Misc Prescription (Alcohol wipes) Use to check BS daily dx E11.9. Refills: 3. Misc Prescription (Glucometer) Glucometer to test BS TID and PRN dx E11.9. Refills: 0. Misc Prescription (Lancets) Use to check BS daily dx E11.9. Refills: 3. Misc Prescription (Nebulizer Machine) Nebulizer Machine. Refills: 0. Misc Prescription (Nebulizer Tubing and Mouthpiece Kit) Nebulizer Tubing and Mouthpiece Kit. Refills: 0. Misc Pr (more content not included)... Normal [facility] ED Note-Physicianon 12-28-19 ED Note-Physician ED Note-Physician Basic Information Time Seen: Mendez Spain Whit Thurman 12/27/2024 10:36 Chief Complaint Pt presents to ED with complaints of generalized edema and SOB x1 week. History of Present Illness The patient is a 64-year-old female past medical history of COPD, congestive heart failure, diabetes, hypertension, hypercholesterolemia who presented to the emergency room for increasing shortness of breath. The patient states for the past 1 week her shortness of breath has gotten worse. The patient states she gets short of breath with laying down flat. The patient states she sleeps in a recliner now because of the shortness of breath. The patient states she has been having swelling on her leg that is getting worse. She is seen her primary doctor who increased her Lasix to 40 mg twice a day. The patient states her primary doctor 3 days ago prescribed antibiotic for the cellulitis of her leg. The patient reports some dry cough. She denies any fever, denies any chills. The patient reports some tightness on her chest. The patient denies any other associated symptoms. Review of Systems Additional ROS info: Except as noted in the above Review of Systems and in the History of Present Illness all other systems have been reviewed and are negative or noncontributory. Physical Exam Vitals & Measurements T: 36.5 ???C(Oral) HR: 71(Monitored) RR: 20 BP: 140/85 SpO2: 100% HT: 168 cm WT: 165.6 kg BMI: 58.67 General: alert, mild distress Skin: warm, dry Head: no trauma, normocephalic Neck: Trachea midline, no tenderness, supple Eye: normal conjunctiva, sclera clear, PERRL, EOMI, vision unchanged ENMT: Oral mucosa moist, no pharyngeal erythema or exudate Cardiovascular: regular rate and rhythm Respiratory: Lungs expiratory wheezes, respirations demonstrate accessory muscle use, breath sounds equal Gastrointestinal: soft, non distended, no tenderness, no guarding Extremities: no deformity, no trauma, bilateral pitting edema. There is erythema on the lower legs anteriorly more on the right with warmth and tenderness to palpation Neurological: Alert and oriented, speech normal, no focal neuro deficits Psychiatric: cooperative, affect appropriate for age Medical Decision Making MEDICAL DECISION MAKING Number and Complexity of Problems Differential Diagnosis: [] [facility] Data External documents reviewed: [] My EKG interpretation: [] My CT interpretation: [] My X-ray interpretation: [] My Ultrasound interpretation: [] Decision rules/scores evaluated: [] Discussed with: Hospitalist Treatment and Disposition ED Course: The patient presented with increasing shortness of breath cough. She reports orthopnea. More likely her shortness of breath is due to acute exacerbation of her heart failure as well as exacerbation of her COPD. The patient has bilateral lower leg cellulitis more pronounced on the right leg. The chest x-ray shows no acute cardiopulmonary disease. Blood work reviewed. Her troponin is slightly elevated. More likely troponin leak from the heart failure. The patient was given breathing treatment in the emergency room and her wheezing and shortness of breath improved. The patient was started on Unasyn. We gave her Zithromax for the COPD exacerbation. The patient received Lasix 40 mg IV. Blood cultures were obtained. Lactic acid was normal. The case was discussed with the hospitalist and the patient will be admitted to the hospitalist services. Shared decision making: [] Code status: [] Critical Care Time: 40 minutes, critical care time is separate from any procedures that are performed. The following was considered in the determination of critical care but not limited to the level medical decision-making, intensive cardiac and/or respiratory monitor, frequent vital sign monitoring, evaluation of laboratory studies, evaluation of a radiographic studies, oxygen monitoring and constant monitoring. Assessment/Plan 1. Acute exacerbation of congestive heart failure (I50.9: Heart failure, unspecified) 2. COPD with acute exacerbation (J44.1: Chronic obstructive pulmonary disease with (acute) exacerbation) 3. Cellulitis of leg (L03.119: Cellulitis of unspecified part of limb) 4. Elevated troponin (R79.89: Other specified abnormal findings of blood chemistry) Orders: albuterol-ipratropium , 3 mL, Soln-Inh, Inhalation, Once, Stop date 12/27/24 12:02:00 EDT, STAT, Start date 12/27/24 12:02:00 EDT albuterol-ipratropium , 3 mL, Soln-Inh, Inhalation, Once, Stop date 12/27/24 10:47:00 EDT, STAT, Start date 12/27/24 10:47:00 EDT ampicillin-sulbactam + Sodium Chloride 0.9% intravenous solution 100 mL, 3 gram = 1 EA, Injection, IV Piggyback, Once, Stop date 12/27/24 11:38:00 EDT, STAT, Start date 12/27/24 11:38:00 EDT, 200 mL/hr, Infuse over 30 minute(s) azithromycin + Sodium Chloride 0.9% intravenous solution 250 mL, 500 mg = 1 EA, Injection, IV Piggyback, Once, Stop date 12/27/24 12:52:00 EDT, STAT, (more content not included)... Normal [facility] Comment on above: Result Comment: Elec tronically Signed By: Mendez Spain, Whit Thurman\.br\Date and Time Signed: 12/27/24 13:59 EDT ED Patient Education Noteon 12-27-2024 ED Patient Education Note ED Patient Education Note Normal [facility] ED Patient Summaryon 025 ED Patient Summary ED Patient Summary [place] [id number] Patient Discharge Instructions Person Information Name: CARMEN BLEDSOE Age: 64 Years Arrival Date: 12/27/2024 10:31:36 Discharge Diagnosis: 1:Acute on chronic heart failure with preserved ejection fraction; 2:COPD with acute exacerbation; 3:Cellulitis of leg; 4:Elevated troponin; 5:Alcohol abuse, in remission; 6:Non-insulin dependent type 2 diabetes mellitus; 7:Morbid obesity with BMI of 50.0-59.9, adult; 8:Obstructive sleep apnea; 9:Severe major depression; 10:GERD (gastroesophageal reflux disease); Body mass index [BMI] 50.0-59.9, adult Primary Care Physician: Yocasta MSN, 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PINSETTER [employer]CH[employer]IC [employer], Myron Hamilton Provider Information Primary Provider: Whit Simms M.D. [employer] Building [employer] Ironworker:None The exam and treatment you received in the Emergency Department were for an urgent problem and are not intended as complete care. It is important that you follow up with a doctor, nurse practitioner, or physician???s urology physician assistant for ongoing care. If your symptoms become worse or you do not improve as expected and you are unable to reach your usual health care provider, you should return to the Emergency Department. We are available 24 hours a day. CARMEN BLEDSOE has been given the following list of patient education materials, prescriptions and follow-up instructions: Follow-up Instructions: In the event that this physician does not participate in your insurance network, please consult with your insurance company to find a nearby participating provider. Patient Education Materials: A MESSAGE TO ALL PATIENTS REGARDING OPIOIDS PRESCRIPTION OPIOIDS: WHAT YOU NEED TO KNOW Prescription opioids can be used to help relieve ucpncqvb-hb-uqahet pain and are often prescribed following a surgery or injury, or for certain health conditions. These medications can be an important part of the treatment but also come with serious risks. It is important to work with your healthcare provider to make sure you are getting the safest, most effective care. WHAT ARE THE RISKS AND SIDE EFFECTS OF OPIOID USE? Prescription opioids carry serious risks of addiction and overdose, especially with prolonged use. An opioid overdose, often marked by slowed breathing, can cause sudden . The use of prescription opioids can have a number of side effects as well, even when taken as directed: ??? Tolerance???meaning you might need to take more of the medication for the same pain relief ??? Physical dependence???meaning you have symptoms of withdrawal when a medication is stopped ??? Increased sensitivity to pain ??? Constipation ??? Nausea, vomiting, and dry mouth ??? Sleepiness and dizziness ??? Confusion ??? Depression ??? Low levels of testosterone that can result in lower sex drive, energy, and strength ??? Itching and sweating RISKS ARE GREATER WITH: ??? History of drug misuse, substance use disorder, or overdose ??? Mental health conditions (such as depression or anxiety) ??? Sleep apnea ??? Older age (65 years and older) ??? Avoid alcohol while taking prescription opioids. Also, unless specifically advised by your health care provider, medications to avoid include: ??? Benzodiazepines (such as Xanax or Valium) ??? Muscle relaxants (such as Soma or Flexeril) ??? Hypnotics (such as Ambien or Lunesta) ??? Other prescription opioids KNOW YOUR OPTIONS Talk to your health care provider about ways to manage your pain that don???t involve prescription opioids. Some of these options may actually work better and have fewer risks and side effects. Options may include: ??? Pain relievers such as acetaminophen, ibuprofen, and naproxen ??? Some medication that are also used for depression or seizures ??? Physical therapy and exercise ??? Cognitive behavioral therapy, a psychological, goal-directed approach, in which patients learn how to modify physical, behavioral, and emotional triggers of pain and stress. IF YOU ARE PRESCRIBED OPIOIDS FOR PAIN: ??? Never take opioids in greater amounts or more often than prescribed. ??? Follow up with your primary health care provider. o Work together to create a plan on how to manage your pain. o Talk about ways to help manage your pain that don???t involve prescription opioids. o Talk about any and all concerns and side effects. ??? Help prevent misuse and abuse o Never sell or share prescription opioids. o Never use another person???s prescription opioids. ??? Store prescription opioids in a secure place and out of reach of others (this may include visitors, children, friends, and family). ??? Safely dispose of unused prescription opioids: Find your community drug take-back program or your pharmacy mail-back program, or flush them down the toilet, following guidance from the Food and Drug Administration (www (more content not included)... Normal [facility] HEMATOLOGYOrdered By: SYSTEM SYSTEM on 12-27-2024 Basophils/100 WBC (Bld) 0.8 % Normal 0.0 - 2.0 % Remisol Heme Basophils/Leukocytes Auto (Bld) [Pure # fraction] 0.1 E9/L Normal 0.0 - 0.2 E9/L Remisol Heme Eosinophils (Bld) [#/Vol] 0.1 E9/L Normal 0.0 - 0.5 E9/L Remisol Heme Eosinophils/100 WBC (Bld) 1.0 % Normal 0.0 - 8.0 % Remisol Heme Erythrocyte distribution width (RBC) [Ratio] 15.6 % High 10.9 - 14.2 % Remisol Heme Hematocrit (Bld) [Volume fraction] 37.2 % Normal 34.0 - 46.0 % Remisol Heme Hemoglobin (Bld) [Mass/Vol] 13.2 g/dL Normal 12.0 - 16.0 gm/dL Remisol Heme Lymphocytes (Bld) [#/Vol] 0.9 E9/L Low 1.0 - 4.0 E9/L Remisol Heme Lymphocytes/100 WBC (Bld) 12.1 % Low 14.0 - 50.0 % Remisol Heme MCH (RBC) [Entitic mass] 32.2 pg Normal 27.0 - 34.0 pg Remisol Heme MCHC (RBC) [Mass/Vol] 35.5 g/dL Normal 31.4 - 36.0 gm/dL Remisol Heme MCV (RBC) [Entitic vol] 90.8 fL Normal 80.0 - 100.0 fL Remisol Heme Monocytes (Bld) [#/Vol] 0.4 E9/L Normal 0.2 - 1.0 E9/L Remisol Heme Monocytes/100 WBC (Bld) 5.3 % Normal 4.0 - 14.0 % Remisol Heme Neutrophils (Bld) [#/Vol] 5.8 E9/L Normal 2.0 - 7.5 E9/L Remisol Heme Neutrophils/100 WBC (Bld) 80.8 % High 36.0 - 75.0 % Remisol Heme Platelet mean volume (Bld) [Entitic vol] 7.2 fL Normal 6.4 - 10.8 fL Remisol Heme Platelets (Bld) [#/Vol] 240.0 E9/L Normal 150.0 - 500.0 E9/L Remisol Heme RBC (Bld) [#/Vol] 4.1 E12/L Low 4.3 - 5.9 E12/L Re misol Heme WBC corrected for nucl RBC Auto (Bld) [#/Vol] 7.2 E9/L Normal 4.0 - 11.0 E9/L Remisol Heme Hep Func Panelon 12-27-2024 Albumin [Mass/Vol] 4.3 g/dL Normal 3.3-5.0 [facility] Comment on above: Performed By: #### 2 [id number] #### [facility] [address] [place] [address] Albumin/Globulin [Mass ratio] 1.4 {ratio} Normal 1.1-2.2 [facility] Comment on above: Performed By: #### 2 [id number] #### [facility] [address] [place] [address] Alk Phos 62 Int._Unit/L Normal 21-98 [facility] Comment on above: Performed By: #### 2 [id number] #### [facility] [address] [place] [address] ALT 23 Int._Unit/L Normal 6-46 [facility] Comment on above: Performed By: #### 2 [id number] #### [facility] [address] [place] [address] AST 21 Int._Unit/L Normal 5-43 [facility] Comment on above: Performed By: #### 2 [id number] #### [facility] [address] [place] [address] Bili Direct 0.1 mg/dL Normal 0.0-0.4 [facility] Comment on above: Performed By: #### 2 [id number] #### [facility] [address] [place] [address] Bili Indirect 0.3 mg/dL Normal 0.1-0.9 [facility] Comment on above: Performed By: #### 2 [id number] #### [facility] [address] [place] [address] Bili Total 0.4 mg/dL Normal 0.0-1.1 [facility] Comment on above: Performed By: #### 2 [id number] #### [facility] [address] [place] [address] Globulin (S) [Mass/Vol] 3.0 g/dL Normal 1.4-4.0 [facility] Comment on above: Performed By: #### 2 [id number] #### [facility] [address] [place] [address] Protein [Mass/Vol] 7.3 g/dL Normal 6.0-7.8 [facility] Comment on above: Performed By: #### 2 [id number] #### [facility] [address] [place] [address] Interdisciplinary Note - Janak e Manageron 12-27-2024 Interdisciplinary Note - Transplant Case Manager Interdisciplinary Note - Transplant Case Manager CRM did chart review Patient was just admitted this afternoon CRM will round for DC needs on 12/28 Normal [facility] Comment on above: Result Comment: Elec tronically Signed By: Clara Gold\.hardik\Date and Time Signed: 12/27/24 16:41 EDT Lactic Acidon 12-27-2024 Lactic Acid Lvl 1.2 mmol/L Normal 0.5-2.[address] [facility] Comment on above: Performed By: #### 2 [id number] #### [facility] [address] [place] [address] No Panel InformationOrdered By: [facility] on 12-27-2024 Blood Culture Charcoal No growth at 2 days. Final to follow at 7 days. [facility] Blood Culture Charcoal No growth at 2 days. Final to follow at 7 days. [facility] PT & PTTon 12-27-2024 INR Coag (PPP) [Relative time] 0.96 {INR} Invalid Interpretation Code [facility] Comment on above: Result Comment: INR results are specifically intended to assess patients stabilized on long-term Anticoagulation therapy suggested INR???s ???Less Intensive Anticoagulation??? 2.0 ??? 3.0 Conventional Range 3.0 ??? 4.5 Performed By: #### 1 [id number] #### [facility] [address] [place] [address] PT 10.7 second(s) Normal 9.4-12.5 [facility] Comment on above: Result Comment: 15 d ays - 4 weeks 1 - 5 months 6 -11 months 1- 5 years 6-10 years 11 -17 years Mean: 11.2 (9.5-12.6) Mean: 11.0 (9.7-12.8) Mean: 11.0 (9.8-13.0) Mean: 11.3 (9.9-13.4) Mean: 11.7 (10.0-14.6) Mean: 11.8 (10.0 - 14.1) Pediatric Reference ranges were obtained from a study by adan Cruz prepared from 1437 samples obtained at 7 different centers using the same coagulation reagent and instrumentation as [facility]. Currently there are no coagulation studies available worldwide for children to 14 days, and no normal ranges. Performed By: #### 1 [id number] #### [facility] [address] [place] [address] PTT 31.4 second(s) Normal 25.1-36.5 [facility] Comment on above: Result Comment: Para meter 15 days - 4 weeks 1 - 5 months 6 - 11 months 1 - 5 years 6 - 10 years 11 - 17 years PTT Mean: 35.4 (27.6-45.6) Mean: 33.5 (24.8-40.7) Mean: 32.4 (25.1-40.7) Mean: 31.6 (24.0-39.2) Mean: 31.6 (26.9-38.7) Mean: 31.0 (24.6-38.4) Pediatric Reference ranges were obtained from a study by Minor Choudhury et al. prepared from 1437 samples obtained at 7 different centers using the same coagulation reagent and instrumentation as [facility]. Currently there are no coagulation studies available worldwide for children to 14 days, and no normal ranges. Heparin therapeutic range (represented by Anti-Factor Xa activity of 0.2 - 0.4 U/mL) corresponds to PTT of 56.6 - 109.0 sec. Performed By: #### 1 [id number] #### [facility] [address] [place] [address] Procalcitoninon 12-27-2024 Procalcitonin .08 ng/mL Normal .00-.50 [facility] Comment on above: Result Comment: <0.5 ng/mL Low risk of severe sepsis and/or shock >2.0 ng/mL High risk of severe sepsis and/or shock Concentrations under 0.5 ng/mL do not exclude local infections or systemic infections in their initial stages (e.g.. under six hours from onset of illness). PCT concentrations between 0.5 and 2.0 ng/mL should be interpreted with consideration of the patient's history. In this range, it is recommended to retest PCT within 6 to 24 hours. Performed By: #### 2 [id number] #### [facility] [address] [place] [address] Respiratory Panel by PCRon 0 12-27-2024 Adenovirus Not detected Normal [facility] Comment on above: Result Comment: Test ing was performed using nucleic acid amplification including Influenza A, Influenza A H1, Influenza A H3, Influenza B, RSV A, RSV B, Adenovirus, Human Metapneumovirus, Parainfluenza 1,2,3, and 4, Rhinovirus, Bordetella parapertussis/bronchiseptica, Bordetella holmesii, and Bordetella pertussis. Performed By: #### 1 [id number] #### [facility] [address] [place] [address] B. holmesii Not detected Normal [facility] Comment on above: Performed By: #### 1 [id number] #### [facility] [address] [place] [address] B. parapertussis/bronch iseptica Not detected Normal Not Detected [facility] Comment on above: Performed By: #### 1 [id number] #### [facility] [address] [place] [address] B. pertussis Not detected Normal Not Detected [facility] Comment on above: Performed By: #### 1 [id number] #### [facility] [address] [place] [address] Human Metapneumovirus Not detected Normal [facility] Comment on above: Result Comment: This test result should be correlated with clinical presentations and medical history by a healthcare provider to determine its clinical significance. Performed By: #### 1 [id number] #### [facility] [address] [place] [address] Influenza A Not detected Normal [facility] Comment on above: Performed By: #### 1 [id number] #### [facility] [address] [place] [address] Influenza A (subtype H1) Not detected Normal [facility] Comment on above: Performed By: #### 1 [id number] #### [facility] [address] [place] [address] Influenza A (subtype H3) Not detected Normal [facility] Comment on above: Performed By: #### 1 [id number] #### [facility] [address] [place] [address] Influenza B Not detected Normal [facility] Comment on above: Performed By: #### 1 [id number] #### [facility] [address] [place] [address] Parainfluenza 1 Not detected Normal [facility] Comment on above: Performed By: #### 1 [id number] #### [facility] [address] [place] [address] Parainfluenza 2 Not detected Normal [facility] Comment on above: Performed By: #### 1 [id number] #### [facility] [address] [place] [address] Parainfluenza 3 Not detected Normal [facility] Comment on above: Performed By: #### 1 [id number] #### [facility] [address] [place] [address] Parainfluenza 4 Not detected Normal [facility] Comment on above: Performed By: #### 1 [id number] #### [facility] [address] [place] [address] Resp Panel Intrl QC Pass Normal [facility] Comment on above: Performed By: #### 1 [id number] #### [facility] [address] [place] [address] Rhinovirus Not detected Normal [facility] Comment on above: Performed By: #### 1 [id number] #### [facility] [address] [place] [address] RSV A Not detected Normal [facility] Comment on above: Performed By: #### 1 [id number] #### [facility] [address] [place] [address] RSV B Not detected Normal [facility] Comment on above: Performed By: #### 1 [id number] #### [facility] [address] [place] [address] TSH With T4fr Reflexon 12-27 TSH Qn 2.71 m[IU]/L Normal 0.34-5.60 [facility] Comment on above: Performed By: #### 1 [id number] #### [facility] [address] [place] [address] Troponin 0 Hr.on 12-27-2024 Troponin HS 32.40 pg/mL High 10.10-27.10 [facility] Comment on above: Result Comment: The 95% CI (Confidence Interval) PPV (Positive Predictive Value) for myocardial infarction in females is 38 pg/mL, in males 51 pg/mL. The results should be used in conjunction with clinical conditions of myocardial infarction. (Access High Sensitivity Troponin I Instructions For Use, [employer], February 2018) Performed By: #### 1 [id number] #### [facility] [address] [place] [address] Troponin 1 Hr.on 12-27-2024 Troponin HS 28.80 pg/mL High 10.10-27.10 [facility] Comment on above: Order Comment: 1143 Result Comment: The 95% CI (Confidence Interval) PPV (Positive Predictive Value) for myocardial infarction in females is 38 pg/mL, in males 51 pg/mL. The results should be used in conjunction with clinical conditions of myocardial infarction. (Access High Sensitivity Troponin I Instructions For Use, [employer], February 2018) Performed By: #### 1 [id number] #### [facility] [address] [place] [address] Troponin 3 Hr.on 12-27-2024 Troponin HS 28.80 pg/mL High 10.10-27.10 [facility] Comment on above: Result Comment: The 95% CI (Confidence Interval) PPV (Positive Predictive Value) for myocardial infarction in females is 38 pg/mL, in males 51 pg/mL. The results should be used in conjunction with clinical conditions of myocardial infarction. (Access High Sensitivity Troponin I Instructions For Use, [employer] KentFebruary 2018) Performed By: #### 1 [id number] #### [facility] [address] [place] [address] Troponin 6 Hr.on 12-27-2024 Troponin HS 27.70 pg/mL High 10.10-27.10 [facility] Comment on above: Result Comment: The 95% CI (Confidence Interval) PPV (Positive Predictive Value) for myocardial infarction in females is 38 pg/mL, in males 51 pg/mL. The results should be used in conjunction with clinical conditions of myocardial infarction. (Access High Sensitivity Troponin I Instructions For Use, [employer], February 2018) Performed By: #### 1 [id number] #### [facility] [address] [place] [address] XR Chest Single Viewon 12-27 XR Chest Single View Exam Date/Time: 12/27/2024 11:06 EDT Reason for Exam: Difficulty breathing Report IMPRESSION: No acute findings by portable radiography. EXAMINATION/TECHNIQUE : XR Chest Single View HISTORY: Difficulty breathing. COMPARISON: 12/19/2024. RESULT: Shallow inspiration. Limitations from patient body habitus. Mildly coarsened lung markings, grossly unchanged. No distinct focal consolidation within limitations of the study. No large pleural effusion. No pneumothorax. Stable cardiomediastinal silhouette. No acute osseous findings Ordering Provider: Whit Simms FINAL REPORT Dictated: 12/27/2024 11:12 am Sathya Christianson MD Signed (Electronic Signature): 12/27/2024 11:12 am Signed by: Sathya Christianson MD Transcribed by: KARSTEN Technologist: CC Normal [facility] eGFRon 12-27-2024 eGFR 83 mL/min/1.73 m2 Normal >=59 [facility] Comment on above: Performed By: #### 1 [id number] #### [facility] [address] [place] [address] Ambulatory Visit Summaryon 0 12-19-2024 Ambulatory Visit Summary Ambulatory Visit Summary CARMEN BLEDSOE :1960 Visit Date:12/19/2024 Ambulatory Visit Instructions Your Diagnosis Type 2 diabetes mellitus with morbid obesity Shortness of breath on exertion Benign hypertension Chronic insomnia Heart failure with preserved ejection fraction Obstructive sleep apnea History of alcohol abuse Morbid obesity with BMI of 50.0-59.9, adult BMI 50.0-59.9, adult Your Care Team Attending Physician - SRINIVAS Pereyra Tammy L. Primary Care Physician - SRINIVAS Pereyra Tammy L. This Is Your Medications List Contact prescribing physician if questions or concerns Misc Prescription (Alcohol wipes) Misc Prescription (Glucometer) Misc Prescription (Lancets) Misc Prescription (Nebulizer Machine) Misc Prescription (Nebulizer Tubing and Mouthpiece Kit) Misc Prescription (Test Strips) albuterol (Albuterol (Eqv-Ventolin HFA) 90 mcg/inh inhalation aerosol) aripiprazole (Abilify 5 mg Tab) dulaglutide (Trulicity Pen 3 mg/0.5 mL subcutaneous solution) empagliflozin (Jardiance 10 mg oral tablet) fluoxetine (FLUoxetine 20 mg Cap) fluticasone-salmetero l (Advair Diskus 250 mcg-50 mcg inhalation powder) furosemide (furosemide 40 mg Tab) gabapentin (gabapentin 300 mg Cap) glipiZIDE (glipiZIDE 2.5 mg ER Tab) pantoprazole (Pantoprazole [address] Tab) potassium chloride (potassium chloride 20 mEq ER Tab) rosuvastatin (Crestor 40 mg Tab) spironolactone (spironolactone 25 mg Tab) Procedures Performed Colonoscopic polypectomy (12/23/2023), Colonoscopy (03/17/2020), Eye/lens implant bilat, Knee replacement, L foot bunion/reconstruction . Discharge Vitals Heart Rate (Peripheral) 72 Respiratory Rate 18 Blood Pressure 140/82 Height 168 cm Height 66 in Weight 164.3 kg Weight 362.219 lb BMI 58.21 What to do next Scheduled Follow-Up Appointments Tuesday 2:00 PM EDT With: Rick Hernandez PA-C Where: [facility] Tuesday 1:40 PM EDT With: SRINIVAS Pereyra Tammy L. Where: [facility] [place] [address] [place] [address]- You Need to Schedule the Following Appointments Follow Up with SRINIVAS Pereyra Tammy L. When: In 2 weeks Comments: chronic care Where: [address] [place] [id number] You Need to Complete the Following Microalbumin Level Urine, Urine, Routine collect, 12/19/24, Order for future visit, Nurse collect, Type 2 diabetes mellitus with morbid obesity Shortness of breath on exertion Benign hypertension Chronic insomnia Heart failure with preserved ejection fraction Obstruc... Urine Microalbumin/Creatini ne Ratio, Urine, Routine collect, 12/19/24, Order for future visit, Nurse collect, Type 2 diabetes mellitus with morbid obesity Shortness of breath on exertion Benign hypertension Chronic insomnia Heart failure with preserved ejection fraction Obstruc... Medications What How Much When Why Instructions Unchanged albuterol (Albuterol (Eqv-Ventolin HFA) 90 mcg/ inh inhalation aerosol) 2 Puffs Inhalation Every 6 hours as needed for Shortness of breath or wheezing Contact prescribing physician if questions or concerns Unchanged aripiprazole (Abilify 5 mg Tab) 1 Tablets By Mouth Every day Contact prescribing physician if questions or concerns Unchanged dulaglutide (Trulicity Pen 3 mg/ 0.5 mL subcutaneous solution) See instructions ADMINISTER 3 MG UNDER THE SKIN EVERY WEEK Contact prescribing physician if questions or concerns Unchanged empagliflozin (Jardiance 10 mg oral tablet) 10 Milligram By Mouth Every day Contact prescribing physician if questions or concerns Unchanged fluoxetine (FLUoxetine 20 mg Cap) 2 Capsules By Mouth Every day Contact prescribing physician if questions or concerns Unchanged fluticasone-salmetero l (Advair Diskus 250 mcg-50 mcg inhalation powder) 1 Puffs Inhalation 2 times a day Duration: 30 Days Contact prescribing physician if questions or concerns Unchanged furosemide (furosemide 40 mg Tab) 1 Tablets By Mouth Every day Peripheral edema Contact prescribing physician if questions or concerns Unchanged gabapentin (gabapentin 300 mg Cap) 1 Capsules 3 times a day Contact prescribing physician if questions or [...] if questions or concerns Unchanged Misc Prescription (Nebulizer Machine) See instru (more content not included)... Normal [facility] CHEMISTRYOrdered By: SYSTEM SYSTEM on 12-19-2024 Albumin [Mass/Vol] 4.4 g/dL Normal 3.3 - 5.0 gm/dL R emisol Chem Albumin/Globulin [Mass ratio] 1.5 {ratio} Normal 1.1 - 2.2 Remisol Chem ALP [Catalytic activity/Vol] 60 [iU]/d Normal 21 - 98 Int._Unit/L Remisol Chem ALT No additional P-5'-P [Catalytic activity/Vol] 31 [iU]/d Normal 6 - 46 Int._Unit/L Remisol Chem Anion gap [Moles/Vol] 13 mmol/L Normal 6 - 16 mEq/L [facility] Chem AST [Catalytic activity/Vol] 29 [iU]/d Normal 5 - 43 Int._Unit/L Remisol Chem Bilirubin [Mass/Vol] 0.4 mg/dL Normal 0.0 - 1.1 mg/dL [facility] Calcium [Mass/Vol] 9.4 mg/dL Normal 8.9 - 11.1 mg/dL [facility] Chloride [Moles/Vol] 95 mmol/L Low 101 - 111 mmol/ L [facility] CO2 [Moles/Vol] 30 mmol/L Normal 21 - 31 mmol/L Remis ol Chem Creatinine [Mass/Vol] 0.7 mg/dL Normal 0.5 - 1.3 mg/dL Rem[facility] Chem GFR/1.73 sq M.predicted MDRD (S/P/Bld) [Vol rate/Area] 98 mL/min/1.73 m2 Normal >=59mL/min/1.73 m2 Rem[facility] Chem Globulin (S) [Mass/Vol] 2.9 g/dL Normal 1.4 - 4.0 gm/dL Remisol [facility] Glucose [Mass/Vol] 88 mg/dL Normal 55 - 199 mg/dL Re misol Chem Potassium [Moles/Vol] 4.0 mmol/L Normal 3.5 - 5.3 mmol/L Remisol Chem Protein [Mass/Vol] 7.3 g/dL Normal 6.0 - 7.8 gm/dL R emisol Chem Sodium [Moles/Vol] 134 mmol/L Low 135 - 145 mmol/L Remisol Chem Urea nitrogen [Mass/Vol] 8 mg/dL Normal 5 - 21 mg/dL Remisol Chem Urea nitrogen/Creatinine [Mass ratio] 11 mg/mg Normal 10 - 20 [facility] CHEMISTRYOrdered By: Katya Preciado on 12-19-2024 HbA1c (Bld) [Mass fraction] 6.1 % High <=5.9% [facility] ChemAutoSS CMPon 12-19-2024 Albumin [Mass/Vol] 4.4 g/dL Normal 3.3-5.0 [facility] Comment on above: Performed By: #### 2 [id number] #### [facility] [address] [place] [address] Albumin/Globulin [Mass ratio] 1.5 {ratio} Normal 1.1-2.2 [facility] Comment on above: Performed By: #### 2 [id number] #### [facility] [address] [place] [address] Alk Phos 60 Int._Unit/L Normal 21-98 [facility] Comment on above: Performed By: #### 2 [id number] #### [facility] [address] [place] [address] ALT 31 Int._Unit/L Normal 6-46 [facility] Comment on above: Performed By: #### 2 [id number] #### [facility] [address] [place] [address] Anion gap [Moles/Vol] 13 mmol/L Normal 6-16 [facility] Comment on above: Performed By: #### 2 [id number] #### [facility] [address] [place] [address] AST 29 Int._Unit/L Normal 5-43 [facility] Comment on above: Performed By: #### 2 [id number] #### [facility] [address] [place] [address] Bili Total 0.4 mg/dL Normal 0.0-1.1 [facility] Comment on above: Performed By: #### 2 [id number] #### [facility] [address] [place] [address] BUN/Creat Ratio 11 No Units Normal 10-20 [facility] Comment on above: Performed By: #### 2 [id number] #### [facility] [address] [place] [address] Calcium [Mass/Vol] 9.4 mg/dL Normal 8.9-11.1 [facility] Comment on above: Performed By: #### 2 [id number] #### [facility] [address] [place] [address] Chloride [Moles/Vol] 95 mmol/L Low 101-111 [facility] Comment on above: Performed By: #### 2 [id number] #### [facility] [address] [place] [address] CO2 [Moles/Vol] 30 mmol/L Normal 21-[address] [facility] Comment on above: Performed By: #### 2 [id number] #### [facility] [address] [place] [address] Creatinine [Mass/Vol] 0.7 mg/dL Normal 0.5-1.3 [facility] Comment on above: Performed By: #### 2 [id number] #### [facility] [address] [place] [address] Globulin (S) [Mass/Vol] 2.9 g/dL Normal 1.4-4.0 [facility] Comment on above: Performed By: #### 2 [id number] #### [facility] [address] [place] [address] Glucose [Mass/Vol] 88 mg/dL Normal 55-199 [facility] Comment on above: Performed By: #### 2 [id number] #### [facility] [address] [place] [address] Potassium [Moles/Vol] 4.0 mmol/L Normal 3.5-5.3 [facility] Comment on above: Performed By: #### 2 [id number] #### [facility] [address] [place] [address] Protein [Mass/Vol] 7.3 g/dL Normal 6.0-7.8 [facility] Comment on above: Performed By: #### 2 [id number] #### [facility] [address] [place] [address] Sodium [Moles/Vol] 134 mmol/L Low 135-145 [facility] Comment on above: Performed By: #### 2 [id number] #### [facility] [address] [place] [address] Urea nitrogen [Mass/Vol] 8 mg/dL Normal 5- [facility] Comment on above: Performed By: #### 2 [id number] #### [facility] [address] [place] [address] Family Medicine Office/Clini c Noteon 12-19-2024 Family Medicine Office/Clinic Note Family Medicine Office/Clinic Note Chief Complaint Patient presents today for 3 month check up. Patient states SOB also leg and feet swelling. The patient reports difficulty breathing and swelling in her feet and legs. HPI Staff Patient presents today for chronic care for diabetes mellitus type 2. Not checking blood sugars. Patients states getting SOB. History of Present Illness 64 Years old Female here for 3 month chronic care HPI staff / Chief Complaint confirmed with the patient Screening: Colon Cancer screenin12/23/2023 with a 3 months f/u recommended; this patient does _ have family history of colon cancer Breast cancer screenin ; this patient does _ have a family history of breast cancer Pap smear: 2019 DEXA: NA Labs: 07/13/2024 Diabetes/ prediabetes: Eye exam: few years ago, had cataract surgery Foot exam: 08/10/2023 done by Omari VILLATORO A1c: Hgb A1C %: 5.7 % (07/13/24 11:18:00) Hgb A1c POC: 5.1 % (02/22/24 13:58:00) Smokers/ former smokers: Low dose lung CT: _ Stress test: 10/20/2022: CONCLUSIONS: Negative Lexiscan nuclear stress test, overall low risk stress. Images were of fair quality due to large body habitus. Echocardiogram 11/08/2023: Interpretation Summary Grossly normal LV and RV. No significant valve disease. Cannot exclude regional wall motion abnormality. No estimated PA pressure. Impaired diastolic relaxation. List of Providers: Mathematical Physicist: Rick Hernandez PA-C Food Service Hotel Runner: Dr Phillip Orthopaedics: Dr Juan BENAVIDES Cr/eGFR: eGFR: 98 mL/min/1.73 m2 (09/12/24 13:35:00) Creatinine: 0.7 mg/dL (09/12/24 13:35:00) A1c: Hgb A1C %: 5.7 % (07/13/24 11:18:00) Hgb A1c POC: 5.1 % (02/22/24 13:58:00) TSH: No qualifying data available. Vit D: No qualifying data available. LDL: LDL Direct: 97 mg/dL (07/13/24 11:18:00) Lipids: Chol: 163 mg/dL (07/13/24 11:18:00) HDL: 47 mg/dL (07/13/24 11:18:00) LDL Direct: 97 mg/dL (07/13/24 11:18:00) Tri mg/dL High (07/13/24 11:18:00) VLDL: 42 mg/dL High (07/13/24 11:18:00) Future [facility] Date: 01/01/2025 2:00 PM Scheduled Provider: Rick Hernandez PA-C [address] [place] [address], [address] Phone: [phone] Fax: [phone] The patient is presenting with shortness of breath on exertion and concerns related to her weight and sleep apnea management. The patient reports experiencing shortness of breath on exertion, which has been persistent and troubling. She has been using an inhaler and undergoing breathing treatments, although these have provided limited relief. The patient is currently on Lasix 40 mg and spironolactone for fluid management. The patient has a history of alcohol abuse, with a recent episode of alcohol consumption occurring a couple of weeks ago. She acknowledges the adverse effects of alcohol on her health and has been advised to abstain completely. The patient has been diagnosed with obstructive sleep apnea and uses a CPAP machine regularly. Her last sleep study was conducted several years ago, and a repeat study is being considered due to insurance requirements and potential gastric bypass surgery. The patient is morbidly obese with a BMI of 50.0-59.9, and she has been exploring weight loss surgery options. She has met with a weight loss clinic and is considering gastric bypass surgery, although she expresses some apprehension about the procedure. Review of Systems PHQ Score Initial Depression Screen Score: 0 SCORE - Respiratory: Reports dyspnea on exertion. Denies cough or wheezing. - Cardiovascular: Reports swelling in feet and legs. - Neurological: Denies headaches or dizziness. Physical Exam Vitals & Measurements HR: 72(Peripheral) RR: 18 BP: 140/82 SpO2: 96% HT: 168 cm HT: 66 in WT: 164.3 kg WT: 362.219 lb BMI: 58.21 Constitutional: Well-groomed, well-nourished, no signs of acute distress. HEENT: Head normocephalic, sclera is clear. Cardiothoracic: Heart rate and rhythm is regular strong, normal S1 and S2. No murmurs, rubs, or bruits auscultated. Generalized lower peripheral edema, Respiratory: Lung sounds are clear throughout, respirations regular nonlabored. Noticeable shortness of breath on exertion Abdomen/GI: Abdomen soft nondistended. Musculoskeletal: Gait is steady, full range of motion. Integument: No rashes or lesions noted to the exposed skin. Psychiatric: Alert and oriented x 3, pleasant, no mood changes. Assessment/Plan 1. Type 2 diabetes mellitus with [...] to prevent sores and possibly loss of l (more content not included)... Normal [facility] Comment on above: Result Comment: Elec tronically Signed By: Yocasta SMITH, 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 [place], Myron Hamilton\.br\Date and Time Signed: 12/19/24 16:05 EDT [id number] 12-19-2024 HbA1c (Bld) [Mass fraction] 6.1 % High <=5.9 [facility] Comment on above: Performed By: #### [id number] #### [facility] [address] [place] [address] XR Chest 2 Viewson XR Chest 2 Views Exam Date/Time: 12/19/2024 13:31 EDT Reason for Exam: Shortness of breath (SOB) Report IMPRESSION: NO RADIOGRAPHIC EVIDENCE OF ACTIVE DISEASE IN THE CHEST. CLINICAL INFORMATION: Shortness of breath (SOB) COMPARISON: None available. FINDINGS: Two views of the chest were obtained. Heart and mediastinum appear normal. The lungs appear clear. Visualized bony thorax and remainder of the chest appears unremarkable. Ordering Provider: Myron Rust FINAL REPORT Dictated: 12/19/2024 1:34 pm Mark Stevens MD Signed (Electronic Signature): 12/19/2024 1:34 pm Signed by: Mark Stevens MD Transcribed by: KARSTEN Technologist: KORIN Rodríguez [facility] eGFRon 12-19-2024 eGFR 98 mL/min/1.73 m2 Normal >=59 [facility] Comment on above: Performed By: #### 1 [id number] #### [facility] [address] [place] [address] Ambulatory Visit Summaryon 0 11-27-2024 Ambulatory Visit Summary Ambulatory Visit Summary CARMEN BLEDSOE :1960 Visit Date:11/27/2024 Ambulatory Visit Instructions Your Diagnosis Type 2 diabetes mellitus with morbid obesity Bilateral leg edema Shortness of breath on exertion Alcohol problem drinking Cigarette smoker Morbid obesity, Morbid (severe) obesity due to excess calories BMI 50.0-59.9, adult Your Care Team Attending Physician - Yocasta MSN, 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Myron VILLATORO Primary Care Physician - Yocasta MSN, 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Myron VILLATORO This Is Your Medications List albuterol (Albuterol (Eqv-Ventolin HFA) 90 mcg/inh inhalation aerosol) fluticasone-salmetero l (Advair Diskus 250 mcg-50 mcg inhalation powder) glipiZIDE (glipiZIDE 2.5 mg ER Tab) rosuvastatin (Crestor 40 mg Tab) Contact prescribing physician if questions or concerns Misc Prescription (Alcohol wipes) Misc Prescription (Glucometer) Misc Prescription (Lancets) Misc Prescription (Nebulizer Machine) Mis Prescription (Nebulizer Tubing and Mouthpiece Kit) [facility] Prescription (Test Strips) aripiprazole (Abilify 5 mg Tab) dulaglutide (Trulicity Pen 3 mg/0.5 mL subcutaneous solution) empagliflozin (Jardiance 10 mg oral tablet) fluoxetine (FLUoxetine 20 mg Cap) furosemide (furosemide 40 mg Tab) gabapentin (gabapentin 300 mg Cap) pantoprazole (Pantoprazole [address] Tab) potassium chloride (potassium chloride 20 mEq ER Tab) spironolactone (spironolactone 25 mg Tab) Procedures Performed Colonoscopic polypectomy (12/23/2023), Colonoscopy (03/17/2020), Eye/lens implant bilat, Knee replacement, L foot bunion/reconstruction . Discharge Vitals Heart Rate (Peripheral) 86 Respiratory Rate 18 Blood Pressure 122/88 Height 168 cm Height 66 in Weight 159.8 kg Weight 352.298 lb BMI 56.62 What to do next Scheduled Follow-Up Appointments Tuesday 12:40 PM EDT With: Yocasta SMITH, Myron ESPINO Where: [facility] [place] [address] [place] [address]- Tuesday 2:00 PM EDT With: Rick Hernandez PA-C Where: [facility] [place] You Need to Schedule the Following Appointments Follow Up with Yocasta SMITH, Myron ESPINO When: Only if needed Where: [address] [place] [phone] Medications What How Much When Why Instructions New albuterol (Albuterol (Eqv-Ventolin HFA) 90 mcg/ inh inhalation aerosol) 2 Puffs Inhalation Every 6 hours as needed for Shortness of breath or wheezing Refills: 3 Pickup at [facility] #[id number] New fluticasone-salmetero l (Advair Diskus 250 mcg-50 mcg inhalation powder) 1 Puffs Inhalation 2 times a day Duration: 30 Days Pickup at [facility] #[id number] Unchanged glipiZIDE (glipiZIDE 2.5 mg ER Tab) 1 Tablets By Mouth Every day Pickup at [facility] #[id number] Unchanged rosuvastatin (Crestor 40 mg Tab) 1 Tablets By Mouth Every day Mixed hyperlipidemia Pickup at [facility] #[id number] Unchanged aripiprazole (Abilify 5 mg Tab) 1 Tablets By Mouth Every day Contact prescribing physician if questions or concerns Unchanged dulaglutide (Trulicity Pen 3 mg/ 0.5 mL subcutaneous solution) 3 Milligram Subcutaneous Every week Type 2 diabetes mellitus with morbid obesity Contact prescribing physician if questions or concerns Unchanged empagliflozin (Jardiance 10 mg oral tablet) 10 Milligram By Mouth Every day Contact prescribing physician if questions or concerns Unchanged fluoxetine (FLUoxetine 20 mg Cap) 2 Capsules By Mouth Every day Contact prescribing physician if questions or concerns Unchanged furosemide (furosemide 40 mg Tab) 1 Tablets By Mouth Every day Peripheral edema Contact prescribing physician if questions or concerns Unchanged gabapentin (gabapentin 300 mg Cap) 1 Capsules 3 times a day Contact prescribing physician if questions or [...] if questions or concerns Unchanged Misc Prescription (Nebulizer Machine) See instructions Moderate persistent asthma Nebulizer Machine Contact prescribing physician if questions or concerns Unchanged Misc Prescription (Nebulizer Tubing and Mouthpiece Kit) See instructions Moderate persistent asthma Nebulizer Tubing and Mouthpiece Kit Contact prescribing physician if questions or concerns Unchanged Misc Prescription (Test Strips) See instructions Type 2 diabetes mellitus with morbid obesity Use to test BS daily Contact prescribing physician if questions or concerns Unchanged pantoprazole (Pantoprazole [address] Tab) 1 Tablets By Mouth Every day Contact prescr (more content not included)... Normal [facility] Family Medicine Office/Clini c Noteon 11-27-2024 Family Medicine Office/Clinic Note Family Medicine Office/Clinic Note Chief Complaint The patient presents for management of obesity-related complications and assessment of respiratory symptoms. HPI Staff C/O: Edema Onset: 2 weeks ago mainly at night Location: [place] feet and lower legs Symptoms: increased SOB had increased her spironolactone to 2 days and is now back down to 1 daily History of Present Illness The patient is a 64-year-old female presenting with type 2 diabetes mellitus and follow-up for lower extremity edema. Staff HPI has been reviewed with the patient. She is engaging in efforts to steer clear from substances like alcohol, having discontinued use, but continues smoking. Respiratory distress related to her obesity has prompted asthma management with albuterol, though pulmonary function testing is pending, particularly vital for impending bariatric surgery. Current inadequate insurance coverage creates hurdles in their treatment plan implementation. She demonstrates bilateral leg edema with recent marked improvement after medication adjustment with Aldactone where she doubled up per suggestion of the on-call physician. Would like to discuss switching from Trulicity to Mounjaro to aid with her diabetes as well as weight loss. She is hoping the Mounjaro would help her better especially since she has sleep apnea and the difficulty breathing. Various components of her management plan are aligned with pending medical evaluations, including pulmonary and cardiology assessments. Review of Systems PHQ Score Initial Depression Screen Score: 0 SCORE - Respiratory: Reports shortness of breath on exertion; intermittently uses albuterol inhaler. - Cardiovascular: Denies chest pain or pressure. - Gastrointestinal: Denies recent alcohol consumption; reports dietary modifications in progress. - Extremities: Denies current leg swelling; reports previous occurrences. - Metabolic/Endocrine: Reports weight increase and plans for weight-loss surgery; has Type 2 diabetes. - Behavioral/Social: Reports cessation of alcohol consumption and plans to quit smoking. Physical Exam Vitals & Measurements HR: 86(Peripheral) RR: 18 BP: 122/88 SpO2: 95% HT: 168 cm HT: 66 in WT: 159.8 kg WT: 352.298 lb BMI: 56.62 Constitutional: Well-groomed, well-nourished, no signs of acute distress. HEENT: Head normocephalic, sclera is clear. Cardiothoracic: Heart rate and rhythm is regular strong, normal S1 and S2. No murmurs, rubs, or bruits auscultated. +1 peripheral edema, peripheral pulses +2 Respiratory: Lung sounds are clear throughout, respirations regular nonlabored. Dyspnea on exertion Abdomen/GI: Abdomen soft nondistended. Musculoskeletal: Gait is steady, full range of motion. Integument: No rashes or lesions noted to the exposed skin Psychiatric: Alert and oriented x 3, pleasant, no mood changes. Assessment/Plan 1. Type 2 diabetes mellitus with [...] prevent sores and possibly loss of limbs. Focus on diet and medication management, with further potential medical options pending insurance approval for the [facility]. Preparation for potential bariatric intervention continues with existing plans and future assessments. Ordered: Current tobacco smoker 1034F Depression Screening Negative 3352F Most recent diastolic blood pressure 80-89 mm Hg 3079F Systolic BP <130 mm Hg (Most Recent) 3074F 2. Bilateral leg edema (R60.0: Localized edema) Medication adjustment successful; symptoms alleviated. Monitoring in place to reassess should symptoms manifest again. Will continue following up with the finished garment inspector. Ordered: Current tobacco smoker 1034F Depression Screening Negative 3352F Most recent diastolic blood pressure 80-89 mm Hg 3079F Systolic BP <130 mm Hg (Most Recent) 3074F 3. Shortness of breath on exertion (R06.02: Shortness of breath) Encouraged to continue using the inhalers will try increasing the Advair from 100 mcg to the 250 mcg 1 puff twice a day. She has an appointment with me on the of next month we will reevaluate. Hopefully at that time she is already seeing the enterprise mobility architect and they have ordered the PFT if not we will go ahead and get that PFT completed. Shortness of breath can also be due to her weight as well as her smoking. No improvement with the increase Advair may need to use trial Trelegy. Ordered: Current tobacco smoker 1034F Depression Screening Negative 3352F Most recent diastolic blood pressure 80-89 mm Hg 3079F Systolic BP <130 mm Hg (Most Recent) 3074F 4. Alcohol problem drinking (F10.90: Alcohol u (more content not included)... Normal [facility] Comment on above: Result Comment: Elec tronically Signed By: Yocasta SMITH, 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 [place], Myron Hamilton\.hardik\Date and Time Signed: 11/27/24 17:35 EDT Ambulatory Visit Summaryon 0 09-12-2024 Ambulatory Visit Summary Ambulatory Visit Summary CARMEN BLEDSOE :1960 Visit Date:09/12/2024 Ambulatory Visit Instructions Your Diagnosis Type 2 diabetes mellitus with morbid obesity Benign hypertension Heart failure with preserved ejection fraction Mixed hyperlipidemia Obstructive sleep apnea Bilateral leg edema Alcohol problem drinking Cigarette smoker Morbid obesity BMI 50.0-59.9, adult Medication management Your Care Team Attending Physician - Yocasta SMITH, Myron ESPINO Primary Care Physician - Yocasta SMITH, Myron ESPINO This Is Your Medications List Misc Prescription (Alcohol wipes) Misc Prescription (Glucometer) Misc Prescription (Lancets) Misc Prescription (Nebulizer Machine) Misc Prescription (Nebulizer Tubing and Mouthpiece Kit) Misc Prescription (Test Strips) albuterol (Ventolin HFA 90 mcg/inh Aerosol-Adpt) albuterol (albuterol 0.083% Inh Rochelle 3 mL) aripiprazole (Abilify 5 mg Tab) cholecalciferol (Vitamin D3 5000 intl units oral capsule) dicyclomine (Bentyl 10 mg Cap) empagliflozin (Jardiance 10 mg oral tablet) fluoxetine (FLUoxetine 20 mg Cap) fluoxetine (FLUoxetine 20 mg Cap) fluticasone-salmetero l (Advair Diskus 100 mcg-50 mcg inhalation powder) furosemide (furosemide 40 mg Tab) gabapentin (gabapentin 300 mg Cap) glipiZIDE (glipiZIDE 2.5 mg ER Tab) montelukast (Singulair 10 mg Tab) pantoprazole (Pantoprazole [address] Tab) potassium chloride (potassium chloride 20 mEq ER Tab) rosuvastatin (Crestor 40 mg Tab) semaglutide (Ozempic 2 mg/3 mL (0.25 mg or 0.5 mg dose) subcutaneous solution) spironolactone (spironolactone 25 mg Tab) tiotropium (Spiriva Respimat 1.25 mcg/inh inhalation aerosol) tizanidine (tiZANidine 4 mg Tab) Procedures Performed Colonoscopic polypectomy (12/23/2023), Colonoscopy (03/17/2020), Eye/lens implant bilat, Knee replacement, L foot bunion/reconstruction . Discharge Vitals Temperature (Temporal Artery) 36.6 ???C Heart Rate (Peripheral) 78 Respiratory Rate 20 Blood Pressure 136/84 Height 168 cm Height 66 in Weight 154.1 kg Weight 339.732 lb BMI 54.6 What to do next Scheduled Follow-Up Appointments Tuesday 11:00 AM EDT With: Rick Hernandez PA-C Where: [facility] [place] Tuesday 12:40 PM EDT With: Yocasta SMITH, DARLEEN-Myron VILLATORO Where: [place] [address] [place] [address]- You Need to Schedule the Following Appointments Follow Up with Yocasta SMITH, SRINIVAS, Myron Hamilton When: In 3 months Comments: chronic care Where: [address] [place] [phone] Someone Will Contact You Regarding These Appointments [facility] External Ambulatory Referral, Surgery, Kevan Bariatric surgery, 09/12/24 13:11:00 EDT, Morbid obesity BMI 50.0-59.9, adult Type 2 diabetes mellitus with morbid obesity Benign hypertension Obstructive sleep apnea Medications What How Much When Why Instructions Unchanged albuterol (albuterol 0.083% Inh Rochelle 3 mL) 3 Milliliter Inhalation Every 6 hours as needed for Shortness of breath or wheezing Unchanged albuterol (Ventolin HFA 90 mcg/ inh Aerosol-Adpt) 2 Puffs Inhalation Every 6 hours as needed for for wheezing Unchanged aripiprazole (Abilify 5 mg Tab) 1 Tablets By Mouth Every day Unchanged cholecalciferol (Vitamin D3 5000 intl units oral capsule) 1 Capsules By Mouth Every day with food Unchanged dicyclomine (Bentyl 10 mg Cap) 2 Capsules By Mouth 4 times a day as needed for Pain Unchanged empagliflozin (Jardiance 10 mg oral tablet) 10 Milligram By Mouth Every day Unchanged fluoxetine (FLUoxetine 20 mg Cap) 2 Capsules By Mouth Every day Unchanged fluoxetine (FLUoxetine 20 mg Cap) 2 Capsules By Mouth Every day Unchanged fluticasone-salmetero l (Advair Diskus 100 mcg-50 mcg inhalation powder) See instructions Unchanged furosemide (furosemide 40 mg Tab) 1 Tablets By Mouth Every day Peripheral edema Unchanged gabapentin (gabapentin 300 mg Cap) 1 Capsules 3 times a day Unchanged glipiZIDE (glipiZIDE 2.5 mg ER Tab) 1 Tablets By Mouth Every day Unchanged Misc Prescription (Alcohol wipes) See instructions Use to check BS daily dx E11.9 Unchanged Misc Prescription (Glucometer) See instructions Glucometer to test BS TID and PRN dx E11.9 Unchanged Misc Prescription (Lancets) See instructions Use to check BS daily dx E11.9 Unchanged Misc Prescription (Nebulizer Machine) See instructions Moderate persistent asthma Nebulizer Machine Unchanged Misc Prescription (Nebulizer Tubing and Mouthpiece Kit) See instructions Moderate persistent asthma Nebulizer Tubing and Mouthpiece Kit Unchanged Misc Prescription (Test Strips) See instructions Type 2 diabetes mellitus with morbid obesity Use to test BS daily Unchanged montelukast (Singulair 10 mg Tab) 1 Tablets By Mouth Once a day (in the evening) Moderate persistent asthma Unchanged pantoprazole (Pantopr (more content not included)... Normal [facility] CHEMISTRYOrdered By: SYSTEM SYSTEM on 09-12-2024 Albumin [Mass/Vol] 4.3 g/dL Normal 3.3 - 5.0 gm/dL R emisol Chem Albumin/Globulin [Mass ratio] 1.5 {ratio} Normal 1.1 - 2.2 Remisol Chem ALP [Catalytic activity/Vol] 54 [iU]/d Normal 21 - 98 Int._Unit/L Remisol Chem ALT No additional P-5'-P [Catalytic activity/Vol] 18 [iU]/d Normal 6 - 46 Int._Unit/L Remisol Chem Anion gap [Moles/Vol] 11 mmol/L Normal 6 - 16 mEq/L Remisol Chem AST [Catalytic activity/Vol] 18 [iU]/d Normal 5 - 43 Int._Unit/L Remisol Chem Bilirubin [Mass/Vol] 0.4 mg/dL Normal 0.0 - 1.1 mg/dL Remisol Chem Calcium [Mass/Vol] 9.1 mg/dL Normal 8.9 - 11.1 mg/dL Remisol Chem Chloride [Moles/Vol] 98 mmol/L Low 101 - 111 mmol/ L Remisol Chem CO2 [Moles/Vol] 27 mmol/L Normal 21 - 31 mmol/L Remis ol Chem Creatinine [Mass/Vol] 0.7 mg/dL Normal 0.5 - 1.3 mg/dL Remisol Chem eGFR 98 mL/min/1.73 m2 Normal >=59mL/min /1.73 m2 Remisol Chem Globulin (S) [Mass/Vol] 2.8 g/dL Normal 1.4 - 4.0 gm/dL Remisol Chem Glucose [Mass/Vol] 95 mg/dL Normal 55 - 199 mg/dL Re misol Chem Potassium [Moles/Vol] 4.0 mmol/L Normal 3.5 - 5.3 mmol/L Remisol Chem Protein [Mass/Vol] 7.1 g/dL Normal 6.0 - 7.8 gm/dL R emisol Chem Sodium [Moles/Vol] 132 mmol/L Low 135 - 145 mmol/L Remisol Chem Urea nitrogen [Mass/Vol] 12 mg/dL Normal 5 - 21 mg/dL Remisol Chem Urea nitrogen/Creatinine [Mass ratio] 17 mg/mg Normal 10 - 20 Remisol Chem CMPon 09-12-2024 Albumin [Mass/Vol] 4.3 g/dL Normal 3.3-5.0 [facility] Comment on above: Performed By: #### 2 [id number] #### [facility] [address] [place] [address] Albumin/Globulin (S) [Mass conc ratio] 1.5 Normal 1.1-2.2 [facility] Comment on above: Performed By: #### 2 [id number] #### [facility] [address] [place] [address] ALP [Catalytic activity/Vol] 54 Int._Unit/L Normal 21-98 [facility] Comment on above: Performed By: #### 2 [id number] #### [facility] [address] [place] [address] ALT No additional P-5'-P [Catalytic activity/Vol] 18 Int._Unit/L Normal 6-46 [facility] Comment on above: Performed By: #### 2 [id number] #### [facility] [address] [place] [address] Anion gap [Moles/Vol] 11 mmol/L Normal 6-16 [facility] Comment on above: Performed By: #### 2 [id number] #### [facility] [address] [place] [address] AST [Catalytic activity/Vol] 18 Int._Unit/L Normal 5-43 [facility] Comment on above: Performed By: #### 2 [id number] #### [facility] [address] [place] [address] Bilirubin [Mass/Vol] 0.4 mg/dL Normal 0.0-1.1 [facility] Comment on above: Performed By: #### 2 [id number] #### [facility] [address] [place] [address] Calcium [Mass/Vol] 9.1 mg/dL Normal 8.9-11.1 [facility] Comment on above: Performed By: #### 2 [id number] #### [facility] [address] [place] [address] Chloride [Moles/Vol] 98 mmol/L Low 101-111 [facility] Comment on above: Performed By: #### 2 [id number] #### [facility] [address] [place] [address] CO2 [Moles/Vol] 27 mmol/L Normal 21-[address] [facility] Comment on above: Performed By: #### 2 [id number] #### [facility] [address] [place] [address] Creatinine [Mass/Vol] 0.7 mg/dL Normal 0.5-1.3 [facility] Comment on above: Performed By: #### 2 [id number] #### [facility] [address] [place] [address] Globulin (S) [Mass/Vol] 2.8 g/dL Normal 1.4-4.0 [facility] Comment on above: Performed By: #### 2 [id number] #### [facility] [address] [place] [address] Glucose [Mass/Vol] 95 mg/dL Normal 55-199 [facility] Comment on above: Performed By: #### 2 [id number] #### [facility] [address] [place] [address] Potassium [Moles/Vol] 4.0 mmol/L Normal 3.5-5.3 [facility] Comment on above: Performed By: #### 2 [id number] #### [facility] [address] [place] [address] Protein [Mass/Vol] 7.1 g/dL Normal 6.0-7.8 [facility] Comment on above: Performed By: #### 2 [id number] #### [facility] [address] [place] [address] Sodium [Moles/Vol] 132 mmol/L Low 135-145 [facility] Comment on above: Performed By: #### 2 [id number] #### [facility] [address] [place] [address] Urea nitrogen [Mass/Vol] 12 mg/dL Normal 5-21 [facility] Comment on above: Performed By: #### 2 [id number] #### [facility] [address] [place] [address] Urea nitrogen/Creatinine [Mass ratio] 17 No Units Normal 10-20 [facility] Comment on above: Performed By: #### 2 [id number] #### [facility] [address] [place] [address] Family Medicine Office/Clini c Noteon 09-12-2024 Family Medicine Office/Clinic Note Family Medicine Office/Clinic Note Chief Complaint Desire for gastric sleeve surgery and management of associated health issues. HPI Staff Patient is here for follow up on hypertension. How often are you checking your blood pressure? Not checking What are your average readings? Are you compliant with your diet? yes Do you exercise? no Are you compliant with your medications? yes Are you having difficulty affording your medications? no Do you have side effects from the medication? no Do you have any of the following symptoms? Chest Pain? no Palpitations? no CARMONA/SOB? yes Headache? no Peripheral Edema? yes Light Headedness? no Patient is here for follow up on Diabetes. Hgb A1C %: 5.7 % (07/13/24 11:18:00) Hgb A1c POC: 5.1 % (02/22/24 13:58:00) How often are you checking your blood sugars? 0 times per day What are your average readings? Do you have low blood sugar readings/symptoms? Denies Do you have high blood sugar readings/symptoms? Denies Are you compliant with your diet? yes Do you exercise? no Are you compliant with your medications? Yes Having difficulty affording your medications? No Do you have any of the following symptoms? Vision problems? Denies GI-Nausea/committing/ bloating? Denies Lightheadedness? Denies Paresthesias, Ulcerations or sores? Denies History of Present Illness 63 Years old Female here for r/s-6mo f/u, [facility] staff / Chief Complaint confirmed with the patient Screening: Colon Cancer screenin12/23/2023 with a 3 months f/u recommended; this patient does _ have family history of colon cancer Breast cancer screenin ; this patient does _ have a family history of breast cancer Pap smear: 2019 DEXA: NA Labs: 07/13/2024 Diabetes/ prediabetes: Eye exam: few years ago, had cataract surgery Foot exam: 08/10/2023 done by Omari VILLATORO A1c: Hgb A1C %: 5.7 % (07/13/24 11:18:00) Hgb A1c POC: 5.1 % (02/22/24 13:58:00) Smokers/ former smokers: Low dose lung CT: _ Stress test: 10/20/2022: CONCLUSIONS: Negative Lexiscan nuclear stress test, overall low risk stress. Images were of fair quality due to large body habitus. Echocardiogram 11/08/2023: Interpretation Summary Grossly normal LV and RV. No significant valve disease. Cannot exclude regional wall motion abnormality. No estimated PA pressure. Impaired diastolic relaxation. List of Providers: Mathematical Physicist: Rick Hernandez PA-C Food Service Hotel Runner: Dr Phillip Orthopaedics: Dr Martinez LABS Cr/eGFR: eGFR: 98 mL/min/1.73 m2 (07/13/24 11:18:00) Creatinine: 0.7 mg/dL (07/13/24 11:18:00) A1c: Hgb A1C %: 5.7 % (07/13/24 11:18:00) Hgb A1c POC: 5.1 % (02/22/24 13:58:00) TSH: No qualifying data available. Vit D: No qualifying data available. LDL: LDL Direct: 97 mg/dL (07/13/24 11:18:00) Lipids: Chol: 163 mg/dL (07/13/24 11:18:00) HDL: 47 mg/dL (07/13/24 11:18:00) LDL Direct: 97 mg/dL (07/13/24 11:18:00) Tri mg/dL High (07/13/24 11:18:00) VLDL: 42 mg/dL High (07/13/24 11:18:00) Future Appointments [facility] Date: 12/18/2024 11:00 AM Scheduled Provider: [place], [address] Phone: [phone] Fax: [phone] The patient is presenting with concerns surrounding obesity and evaluating eligibility for a gastric sleeve operation. The patient is significantly distressed by her morbid obesity, reporting fluctuations in her body weight, and inquiring about surgical options. She has experienced bilateral leg edema intermittently, with a recent history of swelling resolving in the past week. Her history includes alcohol use disorder, last addressed with abstinence for one to two months, but with noted prior challenges. She continues to smoke cigarettes and admits to the occasional use of marijuana which she acknowledges as contributing to weight gain. Other significant medical history includes Type 2 Diabetes Mellitus, complicated by her current obesity, and poorly managed obstructive sleep apnea due to noncompliance with CPAP. The patient understands the need for comprehensive cardiac clearance due to her history of heart failure with preserved ejection fraction and benign hypertension, as well as her mixed hyperlipidemia, prior to any potential bariatric surgery. Her last cardiac check-up, including stress testing in 2022 and echocardiograms last year, was conducted within the past year. She has reports of shortness of breath with prior diagnostic work-up findings under assessment. Colonoscopy evaluations have shown complications with polyps, with follow-up procedures pending. Review of Systems PHQ Score Initial Depression Screen Score: 0 SCORE - Cardiovascular: Denies current leg edema; reports history of shortness of breath. - Respiratory: Denies regular use of CPAP machine despite BRENDA diagnosis. - Gastrointestinal: Reports previous colonoscopy with polyps; pending follow-up. - Hematologic/Lymphatic : Denies current e (more content not included)... Normal [facility] Comment on above: Result Comment: Elec tronically Signed By: Yocasta SMITH, Myron MUÑOZ CNP\.br\Date and Time Signed: 09/12/24 15:31 EDT eGFRon 09-12-2024 eGFR 98 mL/min/1.73 m2 Normal >=59 [facility] Comment on above: Performed By: #### 1 [id number] #### [facility] [address] [place] [address] Provider Letteron 09-04-2024 Provider Letter Provider Letter September 04, 2024 CARMEN BLEDSOE [address] [place] [address] : 1960 Dear Carmen, We have been trying to reach you with no success. Please call us at [phone] in regards to rescheduling your Colonoscopy. Thank you for your prompt attention to this matter. Sincerely, [facility] Normal [facility] Ambulatory Visit Summaryon 0 07-18-2024 Ambulatory Visit Summary Ambulatory Visit Summary LADIJASONEN :1960 Visit Date:07/18/2024 Ambulatory Visit Instructions Your Diagnosis Type 2 diabetes mellitus with morbid obesity Alcohol problem drinking Bilateral leg edema Morbid obesity, Morbid (severe) obesity due to excess calories BMI 50.0-59.9, adult Your Care Team Attending Physician - Yocasta SMITH, Myron ESPINO Primary Care Physician - Yocasta SMITH, Myron ESPINO This Is Your Medications List semaglutide (Ozempic 2 mg/3 mL (0.25 mg or 0.5 mg dose) subcutaneous solution) Contact prescribing physician if questions or concerns Misc Prescription (Alcohol wipes) Misc Prescription (Glucometer) Misc Prescription (Lancets) Misc Prescription (Nebulizer Machine) Misc Prescription (Nebulizer Tubing and Mouthpiece Kit) Misc Prescription (Test Strips) albuterol (Ventolin HFA 90 mcg/inh Aerosol-Adpt) albuterol (albuterol 0.083% Inh Rochelle 3 mL) aripiprazole (Abilify 5 mg Tab) cholecalciferol (Vitamin D3 5000 intl units oral capsule) dicyclomine (Bentyl 10 mg Cap) empagliflozin (Jardiance 10 mg oral tablet) fluoxetine (FLUoxetine 20 mg Cap) fluticasone-salmetero l (Advair Diskus 100 mcg-50 mcg inhalation powder) furosemide (furosemide 40 mg Tab) gabapentin (gabapentin 300 mg Cap) glipiZIDE (glipiZIDE 2.5 mg ER Tab) montelukast (Singulair 10 mg Tab) pantoprazole (Pantoprazole [address] Tab) potassium chloride (potassium chloride 20 mEq ER Tab) rosuvastatin (Crestor 40 mg Tab) spironolactone (spironolactone 25 mg Tab) tiotropium (Spiriva Respimat 1.25 mcg/inh inhalation aerosol) tizanidine (tiZANidine 4 mg Tab) [Image Removed: STOP]Stop taking these medications dulaglutide (Trulicity Pen 3 mg/0.5 mL subcutaneous solution) Procedures Performed Colonoscopic polypectomy (12/23/2023), Colonoscopy (03/17/2020), Eye/lens implant bilat, Knee replacement, L foot bunion/reconstruction . Discharge Vitals Temperature (Temporal Artery) 36.4 ???C Heart Rate (Peripheral) 78 Respiratory Rate 18 Blood Pressure 138/82 Height 168 cm Height 66 in Weight 148.4 kg Weight 327.166 lb BMI 52.58 What to do next Scheduled Follow-Up Appointments Tuesday 1:00 PM EST With: Yocasta SMITH, 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Myron VILLATORO Where: [address] [address]- Tuesday 11:00 AM EST With: Where: [facility] Tuesday 11:00 AM EDT With: Rick Hernandez PA-C Where: [facility] [place] You Need to Schedule the Following Appointments Follow Up with Yocasta SMITH, 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[employer], Myron Hamilton When: Only if needed Comments: keep next month appt Where: [address] [place] [phone] Medications What How Much When Why Instructions New semaglutide (Ozempic 2 mg/ 3 mL (0.25 mg or 0.5 mg dose) subcutaneous solution) 0.5 Milligram Subcutaneous Every week Type 2 diabetes mellitus with morbid obesity Pickup at [id number] Unchanged albuterol (albuterol 0.083% Inh Rochelle 3 mL) 3 Milliliter Inhalation Every 6 hours as needed for Shortness of breath or wheezing Contact prescribing physician if questions or concerns Unchanged albuterol (Ventolin HFA 90 mcg/ inh Aerosol-Adpt) 2 Puffs Inhalation Every 6 hours as needed for for wheezing Contact prescribing physician if questions or concerns Unchanged aripiprazole (Abilify 5 mg Tab) 1 Tablets By Mouth Every day Contact prescribing physician if questions or concerns Unchanged cholecalciferol (Vitamin D3 5000 intl units oral capsule) 1 Capsules By Mouth Every day with food Contact prescribing physician if questions or concerns Unchanged dicyclomine (Bentyl 10 mg Cap) 2 Capsules By Mouth 4 times a day as needed for Pain Contact prescribing physician if questions or concerns [...] prescribing physician if questions or concerns Unchanged furosemide (furosemide 40 mg Tab) 1 Tablets By Mouth Every day Peripheral edema Contact prescribing physician if questions or concerns Unchanged gabapentin (gabapentin 300 mg Cap) 1 Capsules 3 times a day Contact prescribing physician if questions or [...] test BS TID and PRN dx E11.9 Co (more content not included)... Normal [facility] Family Medicine Office/Clini c Noteon 07-18-2024 Family Medicine Office/Clinic Note Family Medicine Office/Clinic Note Chief Complaint The patient presents for the management of Type 2 diabetes mellitus and obesity, with consideration for altering diabetes medication. HPI Staff C/O: Diarrhea (resolved) Onset: Location: Symptoms: none History of Present Illness The patient is a 63-year-old female presenting with concerns related to Type 2 diabetes mellitus and obesity management. HPI staff has been reviewed with the patient for its accuracy. She has a history of morbid obesity, with prior treatment involving Trulicity for diabetes management. Recently, blood work indicated an A1c level of 5.7%, suggestive of well-controlled diabetes, yet she expresses interest in switching from Trulicity to Ozempic or Mounjaro. The motivation for this switch is partially grounded in potential weight loss benefits as well as maintain good diabetic control. She acknowledges that insurance coverage may be restrictive. Additionally, the patient reports no recent alcohol consumption and has experienced bilateral leg edema, presumably linked to previous drinking episodes, which were hinted as possibly exacerbating her symptoms, including diarrhea and shortness of breath. She denies current alcohol use and describes shortness of breath as ongoing, despite no active drinking. Review of Systems PHQ Score Initial Depression Screen Score: 0 SCORE - Gastrointestinal: Reports prior episodes of diarrhea. - Respiratory: Reports persistent shortness of breath. Physical Exam Vitals & Measurements T: 36.4 ???C(Temporal Artery) HR: 78(Peripheral) RR: 18 BP: 138/82 SpO2: 98% HT: 66 in HT: 168 cm WT: 148.4 kg WT: 327.166 lb BMI: 52.58 Constitutional: Well-groomed, well-nourished, no signs of acute distress. HEENT: Head normocephalic, sclera is clear. Cardiothoracic: Heart rate and rhythm is regular strong, normal S1 and S2. No murmurs auscultated. Respiratory: Lung sounds are clear throughout, respirations regular nonlabored. Abdomen/GI: Abdomen soft nondistended. Musculoskeletal: Gait is steady, full range of motion. Integument: No rashes or lesions noted to the exposed skin. Psychiatric: Alert and oriented x 3, pleasant, no mood changes. Assessment/Plan 1. Type 2 diabetes mellitus with morbid obesity (E11.69: Type 2 diabetes mellitus with other specified complication) The patient is advised to switch from Trulicity to Ozempic, starting with a lower dose of 0.25 mg to assess tolerance before titrating. The management plan involves ensuring appropriate insurance authorization. The goal is to maintain glycemic control while aiding in weight management. Continued monitoring of blood glucose levels and A1c will be conducted, with adjustments as needed. Ordered: semaglutide, 0.5 mg, SubCutaneous, qWeek, # 2 EA, Refills(s) 0, Pharmacy: [facility] #[id number], 168, cm, 07/18/24 11:59:00 EST, Height/Length Dosing, 148.4, kg, 07/18/24 11:59:00 EST, Weight Dosing HgbA1c 2. Alcohol problem drinking (F10.90: Alcohol use, unspecified, uncomplicated) Maintain abstinence from alcohol. Acknowledgment of good compliance with no recent incidents reported. Monitor for potential relapse and consider behavioral therapy if future issues arise. Ordered: HgbA1c 3. Morbid obesity (E66.01: Morbid (severe) obesity due to excess calories) Calorie restriction along with routine aerobic exercises discussed in order to avoid hypertension, osteoarthritis, metabolic syndrome and/or worsening of chronic underlying disease states. Encouraged to limit sugary drinks, foods high in sodium, as well as alcohol. Ordered: HgbA1c 4. BMI 50.0-59.9, adult (Z68.43: Body mass index [BMI] 50.0-59.9, adult) see #3 This note was created by the assist of a speech-recognition program although the intention is to generate a document that actually reflects the content of the visit, no guarantees can be provided that every mistake has been identified and corrected by editing. Follow-up With When Contact Information Yocasta SMITH, 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Myron VILLATORO Only if needed [address] [place] [phone] Additional Instructions: keep next month appt Patient Education Alcohol Misuse and Dependence Information, Adult Type 2 Diabetes Mellitus, Self-Care, Adult Problem List/Past Medical History Ongoing Alcohol problem drinking Benign hypertension Bilateral hip pain Bilateral leg edema Chronic insomnia Cigarette smoker Elevated LFTs Elevated liver transaminase level Encounter for medication management Fatty liver GA (granuloma annulare) GERD (gastroesophageal reflux disease) Heart failure with preserved ejection fraction Hepatomegaly History of alcohol abuse History of colon polyps Hypokalemia Left hand weakness Low vitamin D level Marijuana user Medication management Mixed hyperlipidemia Moderate persistent asthma Morbid obesity Neurogenic claudication Obstructive sleep apnea Restless leg syndrome Right hip p (more content not included)... Normal [facility] Comment on above: Result Comment: Elec tronically Signed By: Yocasta SMITH, 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 [employer], Myron Hamilton\.br\Date and Time Signed: 07/18/24 12:22 EST EtiT1pel 07-17-2024 HbA1c (Bld) [Mass fraction] 5.7 % Normal <=5.9 [facility] Comment on above: Performed By: #### [id number] #### [facility] [address] [place] [address] Ambulatory Visit Summaryon 0 07-13-2024 Ambulatory Visit Summary Ambulatory Visit Summary CARMEN BLEDSOE :1960 Visit Date:07/13/2024 Ambulatory Visit Instructions Your Care Team Attending Physician - Yocasta MSN, 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PINSETTER MECHANIC AUTOMATICMyron Primary Care Physician - Yocasta MSN, 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PINSETTER MECHANIC AUTOMATICMyron This Is Your Medications List Misc Prescription (Alcohol wipes) Misc Prescription (Glucometer) Misc Prescription (Lancets) Misc Prescription (Nebulizer Machine) Misc Prescription (Nebulizer Tubing and Mouthpiece Kit) Misc Prescription (Test Strips) albuterol (Ventolin HFA 90 mcg/inh Aerosol-Adpt) albuterol (albuterol 0.083% Inh Rochelle 3 mL) aripiprazole (Abilify 5 mg Tab) cholecalciferol (Vitamin D3 5000 intl units oral capsule) dicyclomine (Bentyl 10 mg Cap) dulaglutide (Trulicity Pen 3 mg/0.5 mL subcutaneous solution) empagliflozin (Jardiance 10 mg oral tablet) fluoxetine (FLUoxetine 20 mg Cap) fluticasone-salmetero l (Advair Diskus 100 mcg-50 mcg inhalation powder) furosemide (furosemide 40 mg Tab) gabapentin (gabapentin 300 mg Cap) glipiZIDE (glipiZIDE 2.5 mg ER Tab) montelukast (Singulair 10 mg Tab) pantoprazole (Pantoprazole [address] Tab) potassium chloride (potassium chloride 20 mEq ER Tab) rosuvastatin (Crestor 40 mg Tab) spironolactone (spironolactone 25 mg Tab) tiotropium (Spiriva Respimat 1.25 mcg/inh inhalation aerosol) tizanidine (tiZANidine 4 mg Tab) Procedures Performed Colonoscopic polypectomy (12/23/2023), Colonoscopy (03/17/2020), Eye/lens implant bilat, Knee replacement, L foot bunion/reconstruction . What to do next Scheduled Follow-Up Appointments Tuesday 12:00 PM EST With: Yocasta SMITH, Myron ESPINO Where: [facility] [address] [place] [address]- Tuesday 1:00 PM EST With: Yocasta SMITH, Myron ESPINO Where: [facility] [address] [place] [address]- Tuesday 11:00 AM EST With: Where: [facility] Tuesday 11:00 AM EDT With: Rick Hernandez PA-C Where: [facility] [place] Medications What How Much When Why Instructions Unchanged albuterol (albuterol 0.083% Inh Rochelle 3 mL) 3 Milliliter Inhalation Every 6 hours as needed for Shortness of breath or wheezing Unchanged albuterol (Ventolin HFA 90 mcg/ inh Aerosol-Adpt) 2 Puffs Inhalation Every 6 hours as needed for for wheezing Unchanged aripiprazole (Abilify 5 mg Tab) 1 Tablets By Mouth Every day Unchanged cholecalciferol (Vitamin D3 5000 intl units oral capsule) 1 Capsules By Mouth Every day with food Unchanged dicyclomine (Bentyl 10 mg Cap) 2 Capsules By Mouth 4 times a day as needed for Pain Unchanged dulaglutide (Trulicity Pen 3 mg/ 0.5 mL subcutaneous solution) 3 Milligram Subcutaneous Every week Type 2 diabetes mellitus with morbid obesity Unchanged empagliflozin (Jardiance 10 mg oral tablet) 10 Milligram By Mouth Every day Unchanged fluoxetine (FLUoxetine 20 mg Cap) 2 Capsules By Mouth Every day Unchanged fluticasone-salmetero l (Advair Diskus 100 mcg-50 mcg inhalation powder) See instructions Unchanged furosemide (furosemide 40 mg Tab) 1 Tablets By Mouth Every day Peripheral edema Unchanged gabapentin (gabapentin 300 mg Cap) 1 Capsules 3 times a day Unchanged glipiZIDE (glipiZIDE 2.5 mg ER Tab) 1 Tablets By Mouth Every day Unchanged Misc Prescription (Alcohol wipes) See instructions Use to check BS daily dx E11.9 Unchanged Misc Prescription (Glucometer) See instructions Glucometer to test BS TID and PRN dx E11.9 Unchanged Misc Prescription (Lancets) See instructions Use to check BS daily dx E11.9 Unchanged Misc Prescription (Nebulizer Machine) See instructions Moderate persistent asthma Nebulizer Machine Unchanged Misc Prescription (Nebulizer Tubing and Mouthpiece Kit) See instructions Moderate persistent asthma Nebulizer Tubing and Mouthpiece Kit Unchanged Misc Prescription (Test Strips) See instructions Type 2 diabetes mellitus with morbid obesity Use to test BS daily Unchanged montelukast (Singulair 10 mg Tab) 1 Tablets By Mouth Once a day (in the evening) Moderate persistent asthma Unchanged pantoprazole (Pantoprazole [address] Tab) 1 Tablets By Mouth Every day Unchanged potassium chloride (potassium chloride 20 mEq ER Tab) 1 Tablets By Mouth Every day Peripheral edema Take with Lasix Unchanged rosuvastatin (Crestor 40 mg Tab) 1 Tablets By Mouth Every day Mixed hyperlipidemia Unchanged spironolactone (spironolactone 25 mg Tab) 1 Tablets By Mouth Every day Benign hypertension Unchanged tiotropium (Spiriva Respimat 1.25 mcg/ inh inhalation aerosol) 2 Puffs Inhalation Every day Unchanged tizanidine (tiZANidine 4 mg Tab) 1 Tablets By Mouth Every 8 hours as needed for Spasm Allergies amLODIPine (Leg Edema) lisinopril (Persistent cough, Tongue swelling) metFORMIN (Diarrhea) Problems Ongoing - Any problem that you are (more content not included)... Normal [facility] Ambulatory Visit Summary Ambulatory Visit Summary CARMEN BLEDSOE :1960 Visit Date:10/18/2018 Ambulatory Visit Instructions Your Diagnosis Benign hypertension Obstructive sleep apnea BMI 50.0-59.9, adult Moderate persistent asthma Tubular adenoma of colon Type 2 diabetes mellitus with morbid obesity Right heart failure, unspecified Bilateral leg edema Alcohol problem drinking Morbid (severe) obesity due to excess calories Heart failure with preserved ejection fraction Severe major depression Tests Performed US Liver -- Results Pending -- Please visit your patient portal for your results or contact your primary care physician. Your Care Team Primary Care Physician - Yocasta MSN, 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[employer], Myron Hamilton This Is Your Medications List Misc Prescription (Alcohol wipes) Misc Prescription (Glucometer) Misc Prescription (Lancets) Misc Prescription (Nebulizer Machine) Misc Prescription (Nebulizer Tubing and Mouthpiece Kit) Misc Prescription (Test Strips) albuterol (Ventolin HFA 90 mcg/inh Aerosol-Adpt) albuterol (albuterol 0.083% Inh Rochelle 3 mL) aripiprazole (Abilify 5 mg Tab) cholecalciferol (Vitamin D3 5000 intl units oral capsule) dicyclomine (Bentyl 10 mg Cap) dulaglutide (Trulicity Pen 3 mg/0.5 mL subcutaneous solution) empagliflozin (Jardiance 10 mg oral tablet) fluoxetine (FLUoxetine 20 mg Cap) fluticasone-salmetero l (Advair Diskus 100 mcg-50 mcg inhalation powder) furosemide (furosemide 40 mg Tab) gabapentin (gabapentin 300 mg Cap) glipiZIDE (glipiZIDE 2.5 mg ER Tab) montelukast (Singulair 10 mg Tab) pantoprazole (Pantoprazole [address] Tab) potassium chloride (potassium chloride 20 mEq ER Tab) rosuvastatin (Crestor 40 mg Tab) spironolactone (spironolactone 25 mg Tab) tiotropium (Spiriva Respimat 1.25 mcg/inh inhalation aerosol) tizanidine (tiZANidine 4 mg Tab) [Image Removed: STOP]Stop taking these medications atorvastatin (atorvastatin 80 mg Tab) lisinopril (lisinopril 20 mg Tab) omeprazole (omeprazole 20 mg Cap-DR) trazodone (traZODONE 150 mg Tab) Procedures Performed Colonoscopic polypectomy (12/23/2023), Colonoscopy (03/17/2020), Eye/lens implant bilat, Knee replacement, L foot bunion/reconstruction . What to do next Scheduled Follow-Up Appointments Tuesday 12:00 PM EST With: Yocasta SMITH, Myron ESPINO Where: [facility] [address] [place] [address]- Tuesday 1:00 PM EST With: Yocasta SMITH, Myron ESPINO Where: [facility] [address] [place] [address]- Tuesday 11:00 AM EST With: Where: [facility] Surgical Services Tuesday 11:00 AM EDT With: David LEONARD, Rick Gipson Where: [facility] You Need to Complete the Following [id number], Blood, Routine collect, 11/02/23, Order for future visit, Lab Collect, Elevated LFTs, Print Label By Order Location KIM w/Reflex if POS, Blood, Routine collect, 11/02/23, Order for future visit, Lab Collect, Elevated LFTs, Print Label By Order Location Antimitochondrial Antibody, Quantitative, Blood, Routine collect, 11/02/23, Order for future visit, Lab Collect, Elevated LFTs, Print Label By Order Location B-Type Natriuretic Peptide, Blood, Routine collect, 07/11/24, Order for future visit, Lab Collect, Benign hypertension Obstructive sleep apnea BMI 50.0-59.9, adult Moderate persistent asthma Tubular adenoma of colon Type 2 diabetes mellitus with morbid obesity Right... B-Type Natriuretic Peptide, Blood, Routine collect, 10/25/23, Order for future visit, Lab Collect, Diastolic CHF, Print Label By Order Location Basic Metabolic Panel, Blood, Routine collect, 10/25/23, Order for future visit, Lab Collect, Diastolic CHF, Print Label By Order Location CBC w/ Auto Diff, Blood, Routine collect, 07/11/24, Order for future visit, Lab Collect, Benign hypertension Obstructive sleep apnea BMI 50.0-59.9, adult Moderate persistent asthma Tubular adenoma of colon Type 2 diabetes mellitus with morbid obesity Right... Comprehensive Metabolic Panel, Blood, Routine collect, 07/11/24, Order for future visit, Lab Collect, Benign hypertension Obstructive sleep apnea BMI 50.0-59.9, adult Moderate persistent asthma Tubular adenoma of colon Type 2 diabetes mellitus with morbid obesity Right... Comprehensive Metabolic Panel, Blood, Routine collect, 11/02/23, Order for future visit, Lab Collect, Elevated LFTs, Print Label By Order Location Ferritin, Blood, Routine collect, 11/02/23, Order for future visit, Lab Collect, Elevated LFTs, Print Label By Order Location HCV Antibody RFX to Quant PCR, Blood, Routine collect, 11/02/23, Order for future visit, Lab Collect, Elevated LFTs, Print Label By Order Location Hep B Core Ab, Tot, Blood, Routine collect, 11/02/23, Order for future visit, Lab Collec (more content not included)... Normal [facility] BNPon 07-13-2024 Int Ctr BNP Pass Normal [facility] Comment on above: Performed By: #### 1 [id number] #### [facility] [address] [place] [address] Natriuretic peptide B (Bld) [Mass/Vol] 39 pg/mL Normal 5-80 [facility] Comment on above: Performed By: #### 1 [id number] #### [facility] [address] [place] [address] CBC w/ Auto Diffon Basophils/100 WBC (Bld) 0.7 % Normal 0.0-2.0 [facility] Comment on above: Performed By: #### 2 [id number] #### [facility] [address] [place] [address] Basophils/Leukocytes Auto (Bld) [Pure # fraction] 0.0 E9/L Normal 0.0-0.2 [facility] Comment on above: Performed By: #### 2 [id number] #### [facility] [address] [place] [address] Eosinophils (Bld) [#/Vol] 0.1 E9/L Normal 0.0-0.5 [facility] Comment on above: Performed By: #### 2 [id number] #### [facility] [address] [place] [address] Eosinophils/100 WBC (Bld) 1.1 % Normal 0.0-8.0 [facility] Comment on above: Performed By: #### 2 [id number] #### [facility] [address] [place] [address] Erythrocyte distribution width (RBC) [Ratio] 15.5 % High 10.9-14.2 [facility] Comment on above: Performed By: #### 2 [id number] #### [facility] [address] [place] [address] Hematocrit (Bld) [Volume fraction] 41.1 % Normal 34.0-46.0 [facility] Comment on above: Performed By: #### 2 [id number] #### [facility] [address] [place] [address] Hemoglobin (Bld) [Mass/Vol] 14.2 g/dL Normal 12.0-16.0 [facility] Comment on above: Performed By: #### 2 [id number] #### [facility] [address] [place] [address] Lymphocytes (Bld) [#/Vol] 1.2 E9/L Normal 1.0-4.0 [facility] Comment on above: Performed By: #### 2 [id number] #### [facility] [address] [place] [address] Lymphocytes/100 WBC (Bld) 18.3 % Normal 14.0-50.0 [facility] Comment on above: Performed By: #### 2 [id number] #### [facility] [address] [place] [address] MCH (RBC) [Entitic mass] 32.3 pg Normal 27.0-34.0 [facility] Comment on above: Performed By: #### 2 [id number] #### [facility] [address] [place] [address] MCHC (RBC) [Mass/Vol] 34.5 g/dL Normal 31.4-36.0 [facility] Comment on above: Performed By: #### 2 [id number] #### [facility] [address] [place] [address] MCV (RBC) [Entitic vol] 93.7 fL Normal 80.0-100.0 [facility] Comment on above: Performed By: #### 2 [id number] #### [facility] [address] [place] [address] Monocytes (Bld) [#/Vol] 0.4 E9/L Normal 0.2-1.0 [facility] Comment on above: Performed By: #### 2 [id number] #### [facility] [address] [place] [address] Neutrophils (Bld) [#/Vol] 4.8 E9/L Normal 2.0-7.5 [facility] Comment on above: Performed By: #### 2 [id number] #### [facility] [address] [place] [address] Neutrophils/100 WBC (Bld) 74.5 % Normal 36.0-75.0 [facility] Comment on above: Performed By: #### 2 [id number] #### [facility] [address] [place] [address] Platelet mean volume (Bld) [Entitic vol] 8.3 fL Normal 6.4-10.8 [facility] Comment on above: Performed By: #### 2 [id number] #### [facility] [address] [place] [address] Platelets (Bld) [#/Vol] 239.0 E9/L Normal 150.0-500.0 [facility] Comment on above: Performed By: #### 2 [id number] #### [facility] [address] [place] [address] RBC (Bld) [#/Vol] 4.4 E12/L Normal 4.3-5.9 [facility] Comment on above: Performed By: #### 2 [id number] #### [facility] [address] [place] [address] WBC corrected for nucl RBC Auto (Bld) [#/Vol] 6.5 E9/L Normal 4.0-11.0 [facility] Comment on above: Performed By: #### 2 [id number] #### [facility] [address] [place] [address] CHEMISTRYOrdered By: SYSTEM SYSTEM on 07-13-2024 Albumin [Mass/Vol] 4.3 g/dL Normal 3.3 - 5.0 gm/dL R emisol Chem Albumin/Globulin [Mass ratio] 1.3 {ratio} Normal 1.1 - 2.2 [facility] ALP [Catalytic activity/Vol] 66 [iU]/d Normal 21 - 98 Int._Unit/L [facility] ALT No additional P-5'-P [Catalytic activity/Vol] 23 [iU]/d Normal 6 - 46 Int._Unit/L [facility] Anion gap [Moles/Vol] 12 mmol/L Normal 6 - 16 mEq/L [facility] AST [Catalytic activity/Vol] 18 [iU]/d Normal 5 - 43 Int._Unit/L [facility] Bilirubin [Mass/Vol] 0.5 mg/dL Normal 0.0 - 1.1 mg/dL [facility] Calcium [Mass/Vol] 9.8 mg/dL Normal 8.9 - 11.1 mg/dL [facility] Chloride [Moles/Vol] 100 mmol/L Low 101 - 111 mmol/ L [facility] Cholesterol [Mass/Vol] 163 mg/dL Normal 120 - 200 mg/dL [facility] Cholesterol in HDL [Mass/Vol] 47 mg/dL Invalid Interpretation Code [facility] Comment on above: Result Comment: '>= 60 LOW RISK' '<= 40 HIGH RISK' Cholesterol in LDL [Mass/Vol] 97 mg/dL Normal <=129mg/dL [facility] Cholesterol in VLDL [Mass/Vol] 42 mg/dL High 7 - 40 mg/dL [facility] CO2 [Moles/Vol] 27 mmol/L Normal 21 - 31 mmol/L Remis ol Chem Cobalamin (Vitamin B12) [Mass/Vol] 191 pg/mL Normal 50 - 1500 pg/mL [facility] Creatinine [Mass/Vol] 0.7 mg/dL Normal 0.5 - 1.3 mg/dL [facility] eGFR 98 mL/min/1.73 m2 Normal >=59mL/min /1.73 m2 [facility] Globulin (S) [Mass/Vol] 3.2 g/dL Normal 1.4 - 4.0 gm/dL [facility] Glucose [Mass/Vol] 88 mg/dL Normal 55 - 199 mg/dL Re misol Chem Potassium [Moles/Vol] 4.3 mmol/L Normal 3.5 - 5.3 mmol/L [facility] Protein [Mass/Vol] 7.5 g/dL Normal 6.0 - 7.8 gm/dL R emisol Chem Sodium [Moles/Vol] 135 mmol/L Normal 135 - 145 mmol/L [facility] Triglyceride [Mass/Vol] 208 mg/dL High <=149mg/dL [facility] Urea nitrogen [Mass/Vol] 14 mg/dL Normal 5 - 21 mg/dL [facility] Urea nitrogen/Creatinine [Mass ratio] 20 mg/mg Normal 10 - 20 [facility] CHEMISTRYOrdered By: Alfredo wayne on 07-13-2024 Natriuretic peptide B (Bld) [Mass/Vol] 39 pg/mL Normal 5 - 80 pg/mL [facility] [place] [facility] HemeMan CMPon 07-13-2024 Albumin [Mass/Vol] 4.3 g/dL Normal 3.3-5.0 [facility] Comment on above: Performed By: #### 2 [id number] #### [facility] [address] [place] [address] Albumin/Globulin (S) [Mass conc ratio] 1.3 Normal 1.1-2.2 [facility] Comment on above: Performed By: #### 2 [id number] #### [facility] [address] [place] [address] ALP [Catalytic activity/Vol] 66 Int._Unit/L Normal 21-98 [facility] Comment on above: Performed By: #### 2 [id number] #### [facility] [address] [place] [address] ALT No additional P-5'-P [Catalytic activity/Vol] 23 Int._Unit/L Normal 6-46 [facility] Comment on above: Performed By: #### 2 [id number] #### [facility] [address] [place] [address] Anion gap [Moles/Vol] 12 mmol/L Normal 6-16 [facility] Comment on above: Performed By: #### 2 [id number] #### [facility] [address] [place] [address] AST [Catalytic activity/Vol] 18 Int._Unit/L Normal 5-43 [facility] Comment on above: Performed By: #### 2 [id number] #### [facility] [address] [place] [address] Bilirubin [Mass/Vol] 0.5 mg/dL Normal 0.0-1.1 [facility] Comment on above: Performed By: #### 2 [id number] #### [facility] [address] [place] [address] Calcium [Mass/Vol] 9.8 mg/dL Normal 8.9-11.1 [facility] Comment on above: Performed By: #### 2 [id number] #### [facility] [address] [place] [address] Chloride [Moles/Vol] 100 mmol/L Low 101-111 [facility] Comment on above: Performed By: #### 2 [id number] #### [facility] [address] [place] [address] CO2 [Moles/Vol] 27 mmol/L Normal 21-[address] [facility] Comment on above: Performed By: #### 2 [id number] #### [facility] [address] [place] [address] Creatinine [Mass/Vol] 0.7 mg/dL Normal 0.5-1.3 [facility] Comment on above: Performed By: #### 2 [id number] #### [facility] [address] [place] [address] Globulin (S) [Mass/Vol] 3.2 g/dL Normal 1.4-4.0 [facility] Comment on above: Performed By: #### 2 [id number] #### [facility] [address] [place] [address] Glucose [Mass/Vol] 88 mg/dL Normal 55-199 [facility] Comment on above: Performed By: #### 2 [id number] #### [facility] [address] [place] [address] Potassium [Moles/Vol] 4.3 mmol/L Normal 3.5-5.3 [facility] Comment on above: Performed By: #### 2 [id number] #### [facility] [address] [place] [address] Protein [Mass/Vol] 7.5 g/dL Normal 6.0-7.8 [facility] Comment on above: Performed By: #### 2 [id number] #### [facility] [address] [place] [address] Sodium [Moles/Vol] 135 mmol/L Normal 135-145 [facility] Comment on above: Performed By: #### 2 [id number] #### [facility] [address] [place] [address] Urea nitrogen [Mass/Vol] 14 mg/dL Normal 5-21 [facility] Comment on above: Performed By: #### 2 [id number] #### [facility] [address] [place] [address] Urea nitrogen/Creatinine [Mass ratio] 20 No Units Normal 10-20 [facility] Comment on above: Performed By: #### 2 [id number] #### [facility] [address] [place] [address] HEMATOLOGYOrdered By: SYSTEM SYSTEM on 07-13-2024 Basophils/100 WBC (Bld) 0.7 % Normal 0.0 - 2.0 % [facility] Basophils/Leukocytes Auto (Bld) [Pure # fraction] 0.0 E9/L Normal 0.0 - 0.2 E9/L [facility] Eosinophils (Bld) [#/Vol] 0.1 E9/L Normal 0.0 - 0.5 E9/L [facility] Eosinophils/100 WBC (Bld) 1.1 % Normal 0.0 - 8.0 % [facility] Erythrocyte distribution width (RBC) [Ratio] 15.5 % High 10.9 - 14.2 % [facility] Hematocrit (Bld) [Volume fraction] 41.1 % Normal 34.0 - 46.0 % [facility] Hemoglobin (Bld) [Mass/Vol] 14.2 g/dL Normal 12.0 - 16.0 gm/dL [facility] Lymphocytes (Bld) [#/Vol] 1.2 E9/L Normal 1.0 - 4.0 E9/L [facility] Lymphocytes/100 WBC (Bld) 18.3 % Normal 14.0 - 50.0 % [facility] MCH (RBC) [Entitic mass] 32.3 pg Normal 27.0 - 34.0 pg [facility] MCHC (RBC) [Mass/Vol] 34.5 g/dL Normal 31.4 - 36.0 gm/dL [facility] MCV (RBC) [Entitic vol] 93.7 fL Normal 80.0 - 100.0 fL [facility] Monocytes (Bld) [#/Vol] 0.4 E9/L Normal 0.2 - 1.0 E9/L [facility] Monocytes/100 WBC (Bld) 5.4 % Normal 4.0 - 14.0 % [facility] Neutrophils (Bld) [#/Vol] 4.8 E9/L Normal 2.0 - 7.5 E9/L [facility] Neutrophils/100 WBC (Bld) 74.5 % Normal 36.0 - 75.0 % [facility] Platelet mean volume (Bld) [Entitic vol] 8.3 fL Normal 6.4 - 10.8 fL [facility] Platelets (Bld) [#/Vol] 239.0 E9/L Normal 150.0 - 500.0 E9/L [facility] RBC (Bld) [#/Vol] 4.4 E12/L Normal 4.3 - 5.9 E12/L Re misol Heme WBC corrected for nucl RBC Auto (Bld) [#/Vol] 6.5 E9/L Normal 4.0 - 11.0 E9/L [facility] Lipid Panelon 07-13-2024 Cholesterol [Mass/Vol] 163 mg/dL Normal 120-200 [facility] Comment on above: Performed By: #### 2 [id number] #### [facility] [address] [place] [address] Cholesterol in HDL [Mass/Vol] 47 mg/dL Invalid Interpretation Code [facility] Comment on above: Result Comment: '>= 60 LOW RISK' '<= 40 HIGH RISK' Performed By: #### 2 [id number] #### [facility] [address] [place] [address] Cholesterol in LDL [Mass/Vol] 97 mg/dL Normal <=129 [facility] Comment on above: Performed By: #### 2 [id number] #### [facility] [address] [place] [address] Cholesterol in VLDL [Mass/Vol] 42 mg/dL High 7-40 [facility] Comment on above: Performed By: #### 2 [id number] #### [facility] [address] [place] [address] Triglyceride [Mass/Vol] 208 mg/dL High <=149 [facility] Comment on above: Performed By: #### 2 [id number] #### [facility] [address] [place] [address] Vit B12on 07-13-2024 Cobalamin (Vitamin B12) [Mass/Vol] 191 pg/mL Normal 50-1500 [facility] Comment on above: Performed By: #### 2 [id number] #### [facility] [address] [place] [address] eGFRon 07-13-2024 eGFR 98 mL/min/1.73 m2 Normal >=59 [facility] Comment on above: Performed By: #### 1 [id number] #### [facility] [address] [place] [address] Family Medicine Office/Clini c Noteon 07-12-2024 Family Medicine Office/Clinic Note Family Medicine Office/Clinic Note HPI Staff Stomach pain: Diarrhea / vomiting Onset: 1 week Location: generalized Duration: daily randomly Characteristics: sharp pains, watery stools, vomits yellow phlegm Aggravated by: nothing Relieved by: [employer] History of Present Illness 63-year-old female presenting today for diarrhea with nausea vomiting for a week She has been experiencing diarrhea x1 week: with N/V. States overall her appetite is good. She is maintaining good hydration with water. Describes watery stool is yellow and has been daily. Last colonoscopy was 2023 which she was post to repeat it in 3 months but has not completed. Denies any changes with any of her medications. She has not been in contact with any 1 that has been ill. She is not been out to diners to eat in quite a while. Denies any fever as well as fatigue. Also denies any use of antibiotics recently. She has noticed increased swelling with the legs. Upon asking if she started back up drinking, she states I would not like to and has admitted that she is drinking alcohol again. But did express that she is not drinking as much she did previously. Denies chest pain but is complaining of increased shortness of breath on exertion. She is due for all of her blood work. She does follow-up with Rick Hernandez PA-C regularly for her cardiology. Review of Systems PHQ Score Initial Depression Screen Score: 0 SCORE Negative unless stated in HPI. Physical Exam Vitals & Measurements T: 36.4 ???C(Temporal Artery) HR: 92(Peripheral) RR: 18 BP: 118/78 SpO2: 99% HT: 66 in HT: 168 cm WT: 152.8 kg WT: 336.866 lb BMI: 54.14 Constitutional: Well-groomed, well-nourished, no signs of acute distress. HEENT: Head normocephalic, sclera is clear. Cardiothoracic: Heart rate and rhythm is regular strong, normal S1 and S2. No murmurs, rubs, or bruits auscultated. +2 lower extremity edema Respiratory: Lung sounds are clear throughout, respirations regular nonlabored. Abdomen/GI: Abdomen soft nondistended. Bowel sounds active x 4 Musculoskeletal: Gait is steady, full range of motion. Integument: No rashes or lesions noted to the exposed skin. Psychiatric: Alert and oriented x 3, pleasant, no mood changes. Assessment/Plan 1. Diarrhea (R19.7: Diarrhea, unspecified) Questioning if this is gastritis versus associated with her drinking again. Highly encouraged to avoid alcohol altogether. Encouraged bland diet, maintaining good hydration with water, go ahead and get her annual blood work since she is due, continue with [employer], will send in for Bertha to help with the cramping. Did encouraged to follow-up with bi consultant if no improvement. 2. Alcohol problem drinking (F10.90: Alcohol use, unspecified, uncomplicated) Admitted been drinking again. She was highly advised to cease drinking altogether any alcohol in the house should be removed. Labs have been placed she will get them done within the next day or 2. We did include a BNP as well as a vitamin B. Inform her that I will update Rick Hernandez PA-C. 3. Morbid (severe) obesity due to excess calories (E66.01: Morbid (severe) obesity due to excess calories) Calorie restriction along with routine aerobic exercises discussed in order to avoid hypertension, osteoarthritis, metabolic syndrome and/or worsening of chronic underlying disease states. Encouraged to limit sugary drinks, foods high in sodium, as well as alcohol. 4. BMI 50.0-59.9, adult (Z68.43: Body mass index [BMI] 50.0-59.9, adult) see #3 5. Immunization due (Z23: Encounter for immunization) This note was created by the assist of a speech-recognition program although the intention is to generate a document that actually reflects the content of the visit, no guarantees can be provided that every mistake has been identified and corrected by editing. Follow-up With When Contact Information nurse visit Within 2 to 3 days Additional Instructions: fasting labs Yocasta SMITH, Myron ESPINO In [address] [place] [id number] Additional Instructions: chronic care Patient Education Alcohol Misuse and Dependence Information, Adult Diarrhea, Adult Problem List/Past Medical History Ongoing Alcohol problem drinking Benign hypertension Bilateral hip pain Bilateral leg edema Chronic insomnia Cigarette smoker Diarrhea Elevated LFTs Elevated liver transaminase level Encounter [...] major depression Skin tags, multiple acquired Smoker (more content not included)... Normal [facility] Comment on above: Result Comment: Elec tronically Signed By: Yocasta SMITH, Myron MUÑOZ CNP\.br\Date and Time Signed: 07/12/24 20:01 EST Ambulatory Visit Summaryon 0 07-11-2024 Ambulatory Visit Summary Ambulatory Visit Summary CARMEN BLEDSOE :1960 Visit Date:07/11/2024 Ambulatory Visit Instructions Your Diagnosis Diarrhea Alcohol problem drinking Morbid (severe) obesity due to excess calories BMI 50.0-59.9, adult Immunization due Your Care Team Attending Physician - SRINIVAS Pereyra Tammy L. Primary Care Physician - SRINIVAS Pereyra Tammy L. This Is Your Medications List dicyclomine (Bentyl 10 mg Cap) Contact prescribing physician if questions or concerns Misc Prescription (Alcohol wipes) Misc Prescription (Glucometer) Misc Prescription (Lancets) Misc Prescription (Nebulizer Machine) Misc Prescription (Nebulizer Tubing and Mouthpiece Kit) Misc Prescription (Test Strips) albuterol (Ventolin HFA 90 mcg/inh Aerosol-Adpt) albuterol (albuterol 0.083% Inh Rochelle 3 mL) aripiprazole (Abilify 5 mg Tab) cholecalciferol (Vitamin D3 5000 intl units oral capsule) dulaglutide (Trulicity Pen 3 mg/0.5 mL subcutaneous solution) empagliflozin (Jardiance 10 mg oral tablet) fluoxetine (FLUoxetine 20 mg Cap) fluticasone-salmetero l (Advair Diskus 100 mcg-50 mcg inhalation powder) furosemide (furosemide 40 mg Tab) gabapentin (gabapentin 300 mg Cap) glipiZIDE (glipiZIDE 2.5 mg ER Tab) montelukast (Singulair 10 mg Tab) pantoprazole (Pantoprazole [address] Tab) potassium chloride (potassium chloride 20 mEq ER Tab) rosuvastatin (Crestor 40 mg Tab) spironolactone (spironolactone 25 mg Tab) tiotropium (Spiriva Respimat 1.25 mcg/inh inhalation aerosol) tizanidine (tiZANidine 4 mg Tab) Procedures Performed Colonoscopic polypectomy (12/23/2023), Colonoscopy (03/17/2020), Eye/lens implant bilat, Knee replacement, L foot bunion/reconstruction . Discharge Vitals Temperature (Temporal Artery) 36.4 ???C Heart Rate (Peripheral) 92 Respiratory Rate 18 Blood Pressure 118/78 Height 168 cm Height 66 in Weight 152.8 kg Weight 336.866 lb BMI 54.14 What to do next Scheduled Follow-Up Appointments Tuesday 11:00 AM EST With: Where: [facility] [address] [place] [address]- Tuesday 12:00 PM EST With: Yocasta SMITH, Myron ESPINO Where: [facility] [address] [place] [address]- Tuesday 1:00 PM EST With: Yocasta SMITH, DARLEEN-Myron VILLATORO Where: [facility] [address] [place] [address]- Tuesday 11:00 AM EST With: Where: [facility] Tuesday 11:00 AM EDT With: Rick Hernandez PA-C Where: [facility] You Need to Schedule the Following Appointments Follow Up with nurse visit When: Within 2 to 3 days Comments: fasting labs Where: Follow Up with Yocasta SMITH, DARLEEN-Myron VILLATORO When: In 1 week Comments: chronic care Where: [address] [place] [id number] You Need to Complete the Following B-Type Natriuretic Peptide, Blood, Routine collect, 07/11/24, Order for future visit, Lab Collect, Benign hypertension Obstructive sleep apnea BMI 50.0-59.9, adult Moderate persistent asthma Tubular adenoma of colon Type 2 diabetes mellitus with morbid obesity Right... CBC w/ Auto Diff, Blood, Routine collect, 07/11/24, Order for future visit, Lab Collect, Benign hypertension Obstructive sleep apnea BMI 50.0-59.9, adult Moderate persistent asthma Tubular adenoma of colon Type 2 diabetes mellitus with morbid obesity Right... Comprehensive Metabolic Panel, Blood, Routine collect, 07/11/24, Order for future visit, Lab Collect, Benign hypertension Obstructive sleep apnea BMI 50.0-59.9, adult Moderate persistent asthma Tubular adenoma of colon Type 2 diabetes mellitus with morbid obesity Right... HgbA1c, Blood, Routine collect, 07/11/24, Order for future visit, Lab Collect, Benign hypertension Obstructive sleep apnea BMI 50.0-59.9, adult Moderate persistent asthma Tubular adenoma of colon Type 2 diabetes mellitus with morbid obesity Right... Lipid Panel, Blood, Routine collect, 07/11/24, Order for future visit, Lab Collect, Benign hypertension Obstructive sleep apnea BMI 50.0-59.9, adult Moderate persistent asthma Tubular adenoma of colon Type 2 diabetes mellitus with morbid obesity Right... Vitamin B12 Level, Blood, Routine collect, 07/11/24, Order for future visit, Lab Collect, Benign hypertension Obstructive sleep apnea BMI 50.0-59.9, adult Moderate persistent asthma Tubular adenoma of colon Type 2 diabetes mellitus with morbid obesity Right... Medications What How Much When Why Instructions New dicyclomine (Bentyl 10 mg Cap) 2 Capsules By Mouth 4 times a day as needed for Pain Pickup at [id number] Unchanged albuterol (albuterol 0.083% Inh Rochelle 3 mL) 3 Shanta (more content not included)... Normal [facility] Ambulatory Visit Summaryon 1 08-06-2023 Ambulatory Visit Summary Ambulatory Visit Summary CARMEN BLEDSOE :1960 Visit Date:06/05/2024 Ambulatory Visit Instructions Your Diagnosis Benign hypertension Mixed hyperlipidemia Peripheral edema Your Care Team Attending Physician - David LEONARD, Rick Gipson Primary Care Physician - Yocasta MSN, 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[employer], Myron Hamilton Referring Physician - NONE, XXXX This Is Your Medications List Misc Prescription (Alcohol wipes) Misc Prescription (Glucometer) Misc Prescription (Lancets) Misc Prescription (Nebulizer Machine) Misc Prescription (Nebulizer Tubing and Mouthpiece Kit) Misc Prescription (Test Strips) albuterol (Ventolin HFA 90 mcg/inh Aerosol-Adpt) albuterol (albuterol 0.083% Inh Rochelle 3 mL) aripiprazole (Abilify 5 mg Tab) cholecalciferol (Vitamin D3 5000 intl units oral capsule) dulaglutide (Trulicity Pen 3 mg/0.5 mL subcutaneous solution) empagliflozin (Jardiance 10 mg oral tablet) fluoxetine (FLUoxetine 20 mg Cap) fluticasone-salmetero l (Advair Diskus 100 mcg-50 mcg inhalation powder) furosemide (furosemide 40 mg Tab) gabapentin (gabapentin 300 mg Cap) glipiZIDE (glipiZIDE 2.5 mg ER Tab) montelukast (Singulair 10 mg Tab) pantoprazole (Pantoprazole [address] Tab) potassium chloride (potassium chloride 20 mEq ER Tab) rosuvastatin (Crestor 40 mg Tab) spironolactone (spironolactone 25 mg Tab) tiotropium (Spiriva Respimat 1.25 mcg/inh inhalation aerosol) tizanidine (tiZANidine 4 mg Tab) Procedures Performed Colonoscopic polypectomy (12/23/2023), Colonoscopy (03/17/2020), Eye/lens implant bilat, Knee replacement, L foot bunion/reconstruction . Discharge Vitals Heart Rate (Peripheral) 90 Respiratory Rate 16 Blood Pressure 126/80 Height 168 cm Height 66 in Weight 145.9 kg Weight 321.654 lb BMI 51.69 What to do next Scheduled Follow-Up Appointments Tuesday 1:00 PM EST With: Yocasta MSN, 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, Myron Hamilton Where: [facility] [address] [place] [address]- Tuesday 11:00 AM EST With: Where: [facility] Tuesday 11:00 AM EDT With: David LEONARD, Rick Gipson Where: [facility] Medications What How Much When Why Instructions Unchanged albuterol (albuterol 0.083% Inh Rochelle 3 mL) 3 Milliliter Inhalation Every 6 hours as needed for Shortness of breath or wheezing Unchanged albuterol (Ventolin HFA 90 mcg/ inh Aerosol-Adpt) 2 Puffs Inhalation Every 6 hours as needed for for wheezing Unchanged aripiprazole (Abilify 5 mg Tab) 1 Tablets By Mouth Every day Unchanged cholecalciferol (Vitamin D3 5000 intl units oral capsule) 1 Capsules By Mouth Every day with food Unchanged dulaglutide (Trulicity Pen 3 mg/ 0.5 mL subcutaneous solution) 3 Milligram Subcutaneous Every week Type 2 diabetes mellitus with morbid obesity Unchanged empagliflozin (Jardiance 10 mg oral tablet) 10 Milligram By Mouth Every day Unchanged fluoxetine (FLUoxetine 20 mg Cap) 2 Capsules By Mouth Every day Unchanged fluticasone-salmetero l (Advair Diskus 100 mcg-50 mcg inhalation powder) See instructions Unchanged furosemide (furosemide 40 mg Tab) 1 Tablets By Mouth Every day Unchanged gabapentin (gabapentin 300 mg Cap) 1 Capsules 3 times a day Unchanged glipiZIDE (glipiZIDE 2.5 mg ER Tab) 1 Tablets By Mouth Every day Unchanged Misc Prescription (Alcohol wipes) See instructions Use to check BS daily dx E11.9 Unchanged Misc Prescription (Glucometer) See instructions Glucometer to test BS TID and PRN dx E11.9 Unchanged Misc Prescription (Lancets) See instructions Use to check BS daily dx E11.9 Unchanged Misc Prescription (Nebulizer Machine) See instructions Moderate persistent asthma Nebulizer Machine Unchanged Misc Prescription (Nebulizer Tubing and Mouthpiece Kit) See instructions Moderate persistent asthma Nebulizer Tubing and Mouthpiece Kit Unchanged Misc Prescription (Test Strips) See instructions Type 2 diabetes mellitus with morbid obesity Use to test BS daily Unchanged montelukast (Singulair 10 mg Tab) 1 Tablets By Mouth Once a day (in the evening) Moderate persistent asthma Unchanged pantoprazole (Pantoprazole [address] Tab) 1 Tablets By Mouth Every day Unchanged potassium chloride (potassium chloride 20 mEq ER Tab) 1 Tablets By Mouth Every day Duration: 90 Days Take with Lasix Unchanged rosuvastatin (Crestor 40 mg Tab) 1 Tablets By Mouth Every day Unchanged spironolactone (spironolactone 25 mg Tab) 1 Tablets By Mouth Every day Duration: 90 Days Unchanged tiotropium (Spiriva Respimat 1.25 mcg/ inh inhalation aerosol) 2 Puffs Inhalation Every day Unchanged tizanidine (tiZANidine 4 mg Tab) 1 Tablets By Mouth Every 8 hours as needed for Spasm Allergies amLODIPine (Leg Edema) lisinopril (Persistent cough, Tongue swelling) metFORMIN (Diarrhea) Problems Ongoing - Any problem that you are currently receiving treatment for. Alcohol problem jeramie (more content not included)... Normal [facility] Heart and Vascular Office/Cl inic Noteon 06-05-2024 Heart and Vascular Office/Clinic Note Heart and Vascular Office/Clinic Note Chief Complaint 6 mo f/u hx of htn, hld History of Present Illness Patient is a 63-year-old female with past medical history of hypertension, cigarette smoking, GERD, HFpEF, history of alcohol abuse, hyperlipidemia, asthma, BRENDA, type 2 diabetes. Echo from 11/2023 showed grossly normal EF with normal LV and RV and no significant valve disease, regional wall motion abnormality could not be excluded. Patient comes in for 6-month follow-up today. At last visit, patient saw Dr. Ramirez at which time she was continued on current medications. Patient reports that she has been doing well since last visit. Patient reports that she is diagnosed with congestive heart failure 1 time when she went to the ER and she was very full fluid. However, patient reports she is not sure if this was an accurate diagnosis and she states she was drinking alcohol very heavily at the time. She states that she has been 8 months sober now and has been doing very well. She states that she has not had any swelling at all here in the recent past. She is compliant with Lasix 40 mg daily, spironolactone 25 mg daily, potassium chloride 20 mEq daily. Patient has well-controlled blood pressure in the office today. She is not taking any additional medications for blood pressure other than what is listed above. Patient denies chest pain, shortness of breath, heart palpitations, dizziness/lightheaded ness, and swelling in lower legs. Review of Systems PHQ Score Initial Depression Screen Score: 0 SCORE ROS - Provider Constitutional: no fever, no chills, no sweats, no weakness Respiratory: no shortness of breath, no cough Cardiovascular: no chest pain Neuro: no dizziness. no loss of consciousness Physical Exam Vitals & Measurements HR: 90(Peripheral) RR: 16 BP: 126/80 SpO2: 96% HT: 66 in HT: 168 cm WT: 145.9 kg WT: 321.654 lb BMI: 51.69 General: alert, no acute distress Cardiovascular: regular rate and rhythm, no murmur normal peripheral perfusion Respiratory: Lungs CTAB, respirations non labored Extremities: no edema left lower extremity. no edema right lower extremity Neurological: oriented x 4, LOC appropriate for age, speech normal Skin: Warm, dry, intact- no rash or concerning lesions Cardiac Diagnostics (11/08/2023 15:28 EDT Echo Transthoracic Complete) Interpretation Summary Grossly normal LV and RV. No significant valve disease. Cannot exclude regional wall motion abnormality. No estimated PA pressure. Impaired diastolic relaxation. [1] Assessment/Plan 1. Benign hypertension (I10: Essential (primary) hypertension) Blood pressure is well-controlled in the office today. Is currently taking spironolactone 25 mg daily and furosemide 40 mg daily that would affect her blood pressure. Continue with current medications Ordered: spironolactone, 25 mg = 1 tab(s), Oral, Daily, # 90 tab(s), Refills(s) 1, Pharmacy: [facility] #[id number], 168, cm, 06/05/24 13:03:00 EST, Height/Length Dosing, 145.9, kg, 06/05/24 13:03:00 EST, Weight Dosing 2. Mixed hyperlipidemia (E78.2: Mixed hyperlipidemia) Patient is currently taking rosuvastatin 40 mg daily for HLD. Continue with current medication Ordered: rosuvastatin, 40 mg = 1 tab(s), Oral, Daily, # 90 tab(s), Refills(s) 3, Pharmacy: [facility] #[id number], 168, cm, 06/05/24 13:03:00 EST, Height/Length Dosing, 145.9, kg, 06/05/24 13:03:00 EST, Weight Dosing 3. Peripheral edema (R60.0: Localized edema) Patient has history of peripheral edema. She states she has not any issues here in quite some time. She does admit to drinking very heavily when she had more edema. She has been sober for 8 months now. Patient is still compliant with Lasix 40 mg daily, spironolactone 25 mg daily, potassium chloride 20 mEq daily. Since patient has been doing well and no swelling, suggest she continue with current medication. Patient most recent echo from 11/2023 showed normal EF. Ordered: furosemide, 40 mg = 1 tab(s), Oral, Daily, # 90 tab(s), Refills(s) 1, Pharmacy: [facility] #[id number], 168, cm, 06/05/24 13:03:00 EST, Height/Length Dosing, 145.9, kg, 06/05/24 13:03:00 EST, Weight Dosing potassium chloride, 20 mEq = 1 tab(s), Oral, Daily, Take with Lasix, # 90 tab(s), Refills(s) 1, Pharmacy: [facility] #[id number], 168, cm, 06/05/24 13:03:00 EST, Height/Length Dosing, 145.9, kg, 06/05/24 13:03:00 EST, Weight Dosing Follow-up with me in 6 months or sooner if needed Portions of this record may have been created with voice recognition artificial intelligence software, specifically [employer], [employer] and or [employer]. Substitutions may have occurred due to the inherent limitations of voice recognition and artificial intelligence software. Follow-up No qualifying data available Problem List/Past Medical History Ongoing Alcohol problem drinking Benign hypertension Bilateral hip pain Bilateral leg edema BMI 45.0-49.9, adult (more content not included)... Normal [facility] Comment on above: Result Comment: Elec tronically Signed By: David LEONARD, Rick Oliveros\Date and Time Signed: 06/05/24 13:24 EST Family Medicine Office/Clini c Noteon 02-23-2024 Family Medicine Office/Clinic Note Family Medicine Office/Clinic Note Chief Complaint 3 month follow up, DM, HTN HPI Staff Patient is here for follow up on Diabetes. Hgb A1C %: 6.3 % High (08/20/22 15:02:00) How often are you checking your blood sugars? 1 time every so often What are your average readings? Do you have low blood sugar readings/symptoms? Denies Do you have high blood sugar readings/symptoms? Denies Are you compliant with your diet? yes Do you exercise? no Are you compliant with your medications? Yes Having difficulty affording your medications? No Do you have any of the following symptoms? Vision problems? Denies GI-Nausea/committing/ bloating? Denies Lightheadedness? Denies Paresthesias, Ulcerations or sores? Denies Patient is here for follow up on hypertension. How often are you checking your blood pressure? Not checking What are your average readings? Are you compliant with your diet? yes Do you exercise? no Are you compliant with your medications? yes Are you having difficulty affording your medications? no Do you have side effects from the medication? no Do you have any of the following symptoms? Chest Pain? no Palpitations? no CARMONA/SOB? no Headache? no Peripheral Edema? no Light Headedness? no Chol: 139 mg/dL (08/20/22 15:02:00) HDL: 61 mg/dL (08/20/22 15:02:00) LDL Direct: 61 mg/dL (08/20/22 15:02:00) Tri mg/dL (08/20/22 15:02:00) VLDL: 28 mg/dL (08/20/22 15:02:00) History of Present Illness a 63-year-old female presenting today for a 3-month follow-up. HPI staff / Chief Complaint confirmed with the patient Social: The patient is NOT ; _ since _ The patient is NOT currently working; retired Screening: Colon Cancer screenin12/23/2023 with a 3 months f/u recommended; this patient does _ have family history of colon cancer Breast cancer screenin ; this patient does _ have a family history of breast cancer Pap smear: 2019 DEXA: NA Labs: 08/10/2023 at [facility] Diabetes/ prediabetes: Eye exam: few years ago, had cataract surgery Foot exam: 08/10/2023 done by Omari VILLATORO A1c: Hgb A1C %: 6.3 % High (08/20/22 15:02:00) Smokers/ former smokers: Low dose lung CT: _ List of Providers: Mathematical Physicist: Dr Ramirez Food Service Hotel Runner: Dr Phillip Orthopaedics: Dr Juan BENAVIDES Cr/eGFR: eGFR: >90 (11/17/2023) Creatinine: 0.7 mg/dL (11/17/2023) A1c: Hgb A1C %: 6.3 % High (08/20/22 15:02:00) TSH: TSH: 4.64 mcIU/mL (08/20/22 15:02:00) Vit D: No qualifying data available. LDL: LDL Direct: 67 mg/dL (08/10/2023) Lipids: Chol: 1206 mg/dL (08/10/2023) HDL: 95 mg/dL (08/10/2023) LDL Direct: 67 mg/dL (08/10/2023) Trimg/dL (08/10/2023)) VLDL: 28 mg/dL (08/20/22 15:02:00) Microalbumin: U Microalb: 4.6 mcg/mL (08/20/22 15:02:00) . Future Appointments [facility] Appt. Date: 02/22/2024 1:20 PM Scheduled Provider: Myron Macias [address] [place], [address] Phone: [phone] Fax: [phone] [address], [place], [phone] Phone: -- Fax: -- [facility] Appt. Date: 06/05/2024 1:00 PM Scheduled Provider: Adam SAMPSON, [place], [address] Fax: [phone] [address] [place] [address], [address] Phone: -- Fax: -- [address] [place] [address], [address] Phone: -- Fax: -- [facility] Appt. Date: 08/31/2024 11:00 AM Scheduled Provider: LADY [address] [place], [phone] Fax: -- She reports feeling well with no swelling. Her mobility has improved by 50% following an epidural injection administered to her back on 02/06/2024. She received an epidural through pain management. She no longer requires a walker for ambulation but continues to experience pain, albeit less severe than before. They are planning for nerve ablation but she is not willing for this. She was prescribed gabapentin by her back surgeon. Currently, she is not on tramadol. She recalls that tramadol was anyway not beneficial for her. She is experiencing heightened anxiety. She recalls feeling anxious due to fear of getting lost when she was travelling to a new place. She feels all tore up inside particularly about twice a week. Her current medications include Abilify 2 mg and fluoxetine 20 mg 2 tablets. She has not tried hydroxyzine. She reports no chest pain or palpitations. She reports no nausea, vomiting, or diarrhea. She is currently on Trulicity 1.5 mg and is interested in increasing the dosage to aid in weight loss. She weighed 352 pounds in 10/2023. She has lost 50 pounds and currently weighs about 301 pounds. She reports no new liver issues. She occasionally checks her blood sugar at home. Her last HbA1c was 5.4% when checked at [facility]. She has discontinued her trazodone for sleep but continues to use a CPAP machine. She has already had a colonoscopy, and there is another scheduled in 3 months. Her last mammogram was (more content not included)... Normal [facility] Comment on above: Result Comment: Elec tronically Signed By: Yocasta MSN, 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 [employer], Myron Hamilton\.br\Date and Time Signed: 02/23/24 15:15 EDT\.br\Electronically Co-Signed By: MEGHAN KRAUSE.hardik\Date and Time Co-Signed: 02/22/24 16:47 EDT Ambulatory Visit Summaryon 0 02-22-2024 Ambulatory Visit Summary Ambulatory Visit Summary CARMEN BLEDSOE :1960 Visit Date:02/22/2024 Ambulatory Visit Instructions Your Diagnosis Type 2 diabetes mellitus with morbid obesity Benign hypertension Chronic insomnia Bilateral hip pain Alcohol problem drinking Cigarette smoker Class 3 severe obesity due to excess calories with serious comorbidity in adult BMI 45.0-49.9, adult Your Care Team Attending Physician - Yocasta SMITH, 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Myron VILLATORO Primary Care Physician - Yocasta SMITH, 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Myron VILLATORO This Is Your Medications List aripiprazole (Abilify 5 mg Tab) dulaglutide (Trulicity Pen 3 mg/0.5 mL subcutaneous solution) Contact prescribing physician if questions or concerns Misc Prescription (Alcohol wipes) Misc Prescription (Glucometer) Misc Prescription (Lancets) Misc Prescription (Nebulizer Machine) Misc Prescription (Nebulizer Tubing and Mouthpiece Kit) Misc Prescription (Test Strips) albuterol (Ventolin HFA 90 mcg/inh Aerosol-Adpt) albuterol (albuterol 0.083% Inh Rochelle 3 mL) cholecalciferol (Vitamin D3 5000 intl units oral capsule) empagliflozin (Jardiance 10 mg oral tablet) fluoxetine (FLUoxetine 20 mg Cap) fluticasone-salmetero l (Advair Diskus 100 mcg-50 mcg inhalation powder) furosemide (furosemide 40 mg Tab) gabapentin (gabapentin 300 mg Cap) glipiZIDE (glipiZIDE 2.5 mg ER Tab) montelukast (Singulair 10 mg Tab) pantoprazole (Pantoprazole [address] Tab) potassium chloride (potassium chloride 20 mEq ER Tab) rosuvastatin (Crestor 40 mg Tab) spironolactone (spironolactone 25 mg Tab) tiotropium (Spiriva Respimat 1.25 mcg/inh inhalation aerosol) tizanidine (tiZANidine 4 mg Tab) [Image Removed: STOP]Stop taking these medications tramadol (traMADOL 50 mg Tab) trazodone (traZODONE 50 mg Tab) Procedures Performed Colonoscopic polypectomy (12/23/2023), Colonoscopy (03/17/2020), Eye/lens implant bilat, Knee replacement, L foot bunion/reconstruction . Discharge Vitals Temperature (Temporal Artery) 36.6 ?C Heart Rate (Peripheral) 63 Respiratory Rate 18 Blood Pressure 118/68 Height 167 cm Height 66 in Weight 137 kg Weight 301.4 lb BMI 49.12 What to do next Scheduled Follow-Up Appointments Tuesday 1:00 PM EST With: Adam SAMPSON, Alirio Hooper Where: [facility] Tuesday 1:00 PM EST With: Yocasta SMITH, Myron ESPINO Where: [facility] [place] [address] [place] [address]- Tuesday 11:00 AM EST With: Where: [facility] Surgical Services You Need to Schedule the Following Appointments Follow Up with Yocasta SMITH, SRINIVAS, Myron Hamilton When: In 6 months Comments: chronic care Where: [address] [place] [phone] Medications What How Much When Why Instructions Changed aripiprazole (Abilify 5 mg Tab) 1 Tablets By Mouth Every day Changed dulaglutide (Trulicity Pen 3 mg/ 0.5 mL subcutaneous solution) 3 Milligram Subcutaneous Every week Type 2 diabetes mellitus with morbid obesity Pickup at [id number] Unchanged albuterol (albuterol 0.083% Inh Rochelle 3 mL) 3 Milliliter Inhalation Every 6 hours as needed for Shortness of breath or wheezing Contact prescribing physician if questions or concerns Unchanged albuterol (Ventolin HFA 90 mcg/ inh [...] prescribing physician if questions or concerns Unchanged furosemide (furosemide 40 mg Tab) 1 Tablets By Mouth Every day Contact prescribing physician if questions or concerns Unchanged gabapentin (gabapentin 300 mg Cap) 1 Capsules 3 times a day Contact prescribing physician if questions or [...] if questions or concerns Unchanged Misc Prescription (more content not included)... Normal [facility] Heart and Vascular Office/Cl inic Noteon 01-28-2024 [...] after patient or guardian consented to allow Desktime to record this visit. BUD senior loss control specialist and provider reviewed before signing. BUD: Tyra Manatad/pasted by: Josse Nava Portions of this record may have been created with voice recognition artificial intelligence software, specifically [employer], [employer] and or [employer]ounge[employer]. Substitutions may have occurred due to the [...] furosemide 4 (more content not included)... Normal [facility] Comment on above: Result Comment: Elec tronically Signed By: Adam SAMPSON, Alirio Hooper\.br\Date and Time Signed: 01/28/24 09:35 EDT\.br\Electronically Co-Signed By: Josse Nava\.br\Date and Time Co-Signed: 12/06/23 16:45 EDT Consenton 12-26-2023 Consent [id number]# 1.00TIFF [facility] Discharge Instructionson Discharge Instructions [id number]# 1.00TIFF [facility] Main OR Intraoperative Recor don 12-26-2023 Main OR Intraoperative Record IntraOp Document Type FT Summary Primary Physician: Walker Phillip MD Finalized Date/Time: 12/26/23 11:06:58 Pt. Name: CARMEN BLEDSOE/Sex: 1960 Female Med Rec #: [id number] Physician: Marjan SAMPSON, Walker Pritchett Financial #: [id number] Pt. Type: O Room/Bed: / Admit/Disch: 12/23/23 10:01:45 - 12/23/23 23:59:59 Institution: Case Times FT Entry 1 Patient Times In Room 12/23/23 12:15:00 Out Room 12/23/23 12:57:00 Procedure Times Start 12/23/23 12:22:00 Stop 12/23/23 12:53:00 Anesthesia Times Start 12/23/23 12:15:00 Stop 12/23/23 12:57:00 Time at [facility] 12/23/23 12:34:00 Last Modified By: Felicia Lainez RN 12/23/23 12:57:37 General Comments: 12/26/23 Chart opened for charge review per Barbie Galeano RN. [place] Case Attendance FT Entry 1 Entry 2 Entry 3 Case Attendee Bria PAZ, Charlene Lainez RN, Ray Graham Role Performed Anesthesiologist Nailhead Puncher - Primary Staff - Other Meter Attendant Time In 12/23/23 12:15:00 12/23/23 12:15:00 12/23/23 12:15:00 Time Out 12/23/23 12:57:00 12/23/23 12:57:00 12/23/23 12:57:00 Procedure COLONOSCOPY(.) COLONOSCOPY(.) COLONOSCOPY(.) Comments Dr. Benz is supervising Last Modified By: Migel MURRAY, Felicia Lainez RN, Felicia Lainez RN, Felicia Lee 12/23/23 12:57:38 12/23/23 12:57:38 12/23/23 12:57:38 Entry 4 Entry 5 Case Attendee Mini GARZA, Mayte Phillip MD, Walker Pritchett Role Performed Scrub - Primary Surgeon - Primary Time In 12/23/23 12:15:00 12/23/23 12:15:00 Time Out 12/23/23 12:57:00 12/23/23 12:57:00 Procedure COLONOSCOPY(.) COLONOSCOPY(.) Comments Last Modified By: Migel MURRAY, Felicia Lainez RN, Felicia Lee 12/23/23 12:57:38 12/23/23 12:57:38 Perioperative Protocols FT [...] Applicable) PreOp Antibiotic No Time Out Charlene Fraser CRNA, Given Participants Felicia Lainez RN, Ray Gutierrez, Mini GARZA, Marjan Mcdermott MD, Walker Pritchett Time Out [...] and tissue Entry 1 Skin Integrity Intact, Aguila, Warm, and Skin Abnormality No Dry Outcomes Met? Yes Last Modified By: Felicia Lainez RN 12/23/23 12:25:30 Post-Care Text: The patient is free from signs and symptoms of injury caused by extraneous objects Patient Positioning FT Pre-Care Text: Identifies physical alterations that require additional precautions for procedure-specific posit (more content not included)... [facility] Consent for Treatmenton 12-03 Consent for Treatment [id number]#1 .00TIFF [facility] Discharge Instructionson Discharge Instructions CARMEN BLEDSOE [...] 10:30 AM EDT With: Where: [facility] Tuesday 10:00 AM EDT With: Marjan SAMPSON, Walker Pritchett Where: [facility] Normal [address] [place] [address]- \.br\ Tuesday 1:00 PM EST \.br\ With: Adam SAMPSON, Alirio Hooper\.br\ Where: [facility]\.br\ New Follow Up Appointments after Discharge\.br\ Follow Up with Marjan SAMPSON, Walker Pritchett, [facility] When: \.br\ Comments:\.br\ Call Office in 2 weeks for results or follow-up Appt. \.br\ Where:\.br\ [facility] Du[facility] [address] [facility] [address]\.br\ [place] [address].br\ [id number]\.br\ Medications\.br\ What How Much When Why Instructions [...] Chest discomfort: Most heart attacks involve discomf [facility] Comment on above: Result Comment: Elec tronically Signed By: Catarino Valentine RN\.br\Date and Time Signed: 12/23/23 13:18 [...] MD. Current history and physical Reviewed. Colonoscopy ([id number]) on 03/17/2020 at 59 Years. L foot bunion/reconstruction . Eye/lens implant bilat. Knee replacement ([id number]).. Past Medical History Resolved Tubular adenoma of colon ([id number]): Resolved. COPD exacerbation ([id number]): Resolved.. Family History Liver cancer Father () Hypertension Sister Brother Mother () Stomach cancer Mother () . Procedure History Colonoscopy ([id number]) on 03/17/2020 at 59 Years. L foot bunion/reconstruction . Eye/lens implant bilat. Knee replacement ([id number]).. Colorectal neoplasm risk assessment High risk Previous [...] 90 tab(s), Refills(s) 3, [facility]: [id number], 167, cm, 01/11/23 11:15:00 EDT, Height/Length Dosing, 138, kg, 01/11/23 11:15:00 EDT, Weight Dosing Alcohol wipes: Alcohol wipes, See Instructions, 100 EA, 3, Use to check BS daily dx E11.9, [facility] #[id number], Supply, 163, cm, 12/30/21 11:09:00 EDT, Height/Length Dosing, 154, kg, 12/30/21 11:09:00 EDT, Weight Dosing Crestor 40 mg Tab: 40 mg = 1 tab(s), Oral, Daily, # 90 tab(s), Refills(s) 3, [facility]acy: [facility] #[id number], 167, cm, 05/09/23 8:15:00 EST, Height/Length Dosing, 145.6, kg, 05/09/23 8:15:00 EST, Weight Dosing FLUoxetine 20 mg Cap: 40 mg = 2 cap(s), Oral, Daily, # 180 cap(s), Refills(s) 1, Pharmacy: [facility] #[id number], 167, cm, 08/10/23 14:24:00 EST, Height/Length Dosing, [...] 90 tab(s), Refills(s) 2, Pharmacy: [facility] #[id number], 167, cm, 08/10/23 14:24:00 EST, Height/Length Dosing, 151.4, kg, 08/10/23 14:24:00 EST, Weight Dosing Lancets: Lancets, See Instructions, 100 EA, 3, Use to check BS daily dx E11.9, [facility] #[id number], Supply, 163, cm, 12/30/21 11:09:00 EDT, Height/Length Dosing, 154, kg, 12/30/21 11:09:00 EDT, Weight Dosing Nebulizer Machine: Nebulizer Machine, See Instructions, 1 EA, 0, Nebulizer Machine, [facility] #43366, Supply, 168, cm, 10/11/23 14:32:00 EDT, Height/Length Dosing, 160.2, kg, 10/11/23 14:32:00 EDT, Weight Dosing Nebulizer Tubing and Mouthpiece Kit: Nebulizer Tubing and Mouthpiece Kit, See Instructions, 1 kit(s), 0, Nebulizer Tubing and Mouthpiece Kit, [facility] #51659, Supply, 168, cm, 10/11/23 14:32:00 EDT, Height/Length Dosing, 160.2, kg, 10/11/23 14:32:00 EDT, Weight Dosing Pantoprazole [address] Tab: 40 mg = 1 tab(s), Oral, Daily, # 90 tab(s), Refills(s) 3, Pharmacy: [facility] #[id number], 167, cm, 01/11/23 11:15:00 EDT, Height/Length Dosing, [...] Use to test BS daily, [facility] #89173, Supply, 167.5, cm, 10/18/22 13:30:00 EDT, Height/Length Dosing, 147, kg, 10/18/22 13:30:00 EDT, Weight Dosing Trulicity Pen 1.5 mg/0.5 mL subcutaneous solution: 1.5 mg, SubCutaneous, qWeek, # 4 EA, Refills(s) 0, Pharmacy: [facility] #[id number], 168, cm, 12/06/23 14:55:00 EDT, Height/Length Dosing, 139, kg, 12/06/23 14:55:00 EDT, Weight Dosing Ventolin HFA 90 mcg/inh Aerosol-Adpt: 2 (more content not included)... Normal [facility] Comment on above: Result Comment: Elec tronically Signed By: Walker Phillip MD\.br\Date and Time Signed: 12/23/23 12:58 EDT Main OR PACU I Recordon 12-03 Main OR PACU I Record PACU Phase I Document Type FT Summary Primary Physician: Walker Phillip MD Finalized Date/Time: 12/23/23 13:44:10 Pt. Name: CARMEN BLEDSOE/Sex: 1960 Female Med Rec #: [id number] Physician: Walker Phillip MD Financial #: [id number] Pt. Type: O Room/Bed: / Admit/Disch: 12/23/23 [...] I Outcomes Met? Yes Last Modified By: Catarino Valentine RN 12/23/23 13:43:58 Post-Care Text: The [...] Level Acuity Level I Last Modified By: Catarino Valentine RN 12/23/23 13:44:08 Finalized By: Catarino Valentine RN Document Signatures Signed By: Catarino Valentine RN 12/23/23 13:44 Normal [facility] Main OR Preoperative Recordo n 12-23-2023 Main OR Preoperative Record Holding Area Document Type FT Summary Primary Physician: Walker Phillip MD Finalized Date/Time: 12/23/23 10:57:22 Pt. Name: JASON BLEDSOEJACINDA Braswell/Sex: 1960 Female Med Rec #: [id number] Physician: Walker Phillip MD Financial #: [id number] Pt. Type: O Room/Bed: / Admit/Disch: 12/23/23 10:01:45 - Institution: Case Times Holding FT Pre-Care Text: Verifies consent for planned procedure, identifies individual values and wishes concerning care, includes family members in perioperative teaching Secures patient's records' belongings, and valuables, maintains patient's dignity and privacy, and maintains patient confidentiality Entry 1 In Holding 12/23/23 10:45:00 Outcomes Met? Yes Last Modified By: Kyree MURRAY, Jannet Day 12/23/23 10:56:11 Post-Care Text: The patient participates [...] clear liquid green, has been NPO since. /MDRN Finalized By: Jannet Adorno RN Document Signatures Signed By: Jannet Adorno RN 12/23/23 10:57 Normal [facility] Monitor Recordon 12-23-2023 Monitor Record [id number]# 1.00TIFF Normal [facility] Nursing Narrative Noteon Nursing Narrative Note Unable to obtain accurate testing after attempt x2 RN d/t pt body habitus. Normal [facility] Patient Education - Texton 0 12-23-2023 [...] or gets worse throughout the day. Normal [facility] Progress Note-Physicianon Progress Note-Physician Patient: CARMEN BLEDSOE Age: 63 years Sex: Female : 1960 Associated Diagnoses: None Author: Demar SAMPSON, Zaid Hooper Postoperative Information Postoperative disposition: Postoperative disposition: To PACU. Optimetrix number: Optimetrix number [id number]. Anesthetic utilized: General. Health Status Allergies: Allergic [...] when meets criteria ( To home ). [facility] Comment on above: Result Comment: Elec tronically [...] Daily, # 90 tab(s), Refills(s) 3, [facility]acy: [facility] #[id number], 167, cm, 01/11/23 11:15:00 EDT, Height/Length Dosing, 138, kg, 01/11/23 11:15:00 EDT, Weight Dosing Alcohol wipes: Alcohol wipes, See Instructions, 100 EA, 3, Use to check BS daily dx E11.9, [facility] #53871, Supply, 163, cm, 12/30/21 11:09:00 EDT, Height/Length Dosing, 154, kg, 12/30/21 11:09:00 EDT, Weight Dosing Crestor 40 mg Tab: 40 mg = 1 tab(s), Oral, Daily, # 90 tab(s), Refills(s) 3, Pharmacy: [facility] #[id number], 167, cm, 05/09/23 8:15:00 EST, Height/Length Dosing, 145.6, kg, 05/09/23 8:15:00 EST, Weight Dosing FLUoxetine 20 mg Cap: 40 mg = 2 cap(s), Oral, Daily, # 180 cap(s), Refills(s) 1, Pharmacy: [facility] #88179, 167, cm, 08/10/23 14:24:00 EST, Height/Length Dosing, 151.4, kg, 08/10/23 14:24:00 EST, Weight Dosing Glucometer: Glucometer, See Instructions, 1 EA, 0, Glucometer to test BS TID and PRN dx E11.9, [facility], 170, cm, 05/27/21 8:31:00 EST, Height/Length Dosing, 157.8, kg, 05/27/21 8:31:00 EST, Weight Dosing Jardiance 10 mg oral tablet: 10 mg, Oral, Daily, # 90 tab(s), Refills(s) 2, Pharmacy: [facility] #22474, 167, cm, 08/10/23 14:24:00 EST, Height/Length Dosing, 151.4, kg, 08/10/23 14:24:00 EST, Weight Dosing Lancets: Lancets, See Instructions, 100 EA, 3, Use to check BS daily dx E11.9, [facility] #36978, Supply, 163, cm, 12/30/21 11:09:00 EDT, Height/Length Dosing, 154, kg, 12/30/21 11:09:00 EDT, Weight Dosing Nebulizer Machine: Nebulizer Machine, See Instructions, 1 EA, 0, Nebulizer Machine, [facility] #92071, Supply, 168, cm, 10/11/23 14:32:00 EDT, Height/Length Dosing, 160.2, kg, 10/11/23 14:32:00 EDT, Weight Dosing Nebulizer Tubing and Mouthpiece Kit: Nebulizer Tubing and Mouthpiece Kit, See Instructions, 1 kit(s), 0, Nebulizer Tubing and Mouthpiece Kit, [facility] #26642, Supply, 168, cm, 10/11/23 14:32:00 EDT, Height/Length Dosing, 160.2, kg, 10/11/23 14:32:00 EDT, Weight Dosing Pantoprazole [address] Tab: 40 mg = 1 tab(s), Oral, Daily, # 90 tab(s), Refills(s) 3, Pharmacy: [facility] #46288, 167, cm, 01/11/23 11:15:00 EDT, Height/Length Dosing, [...] Use to test BS daily, [facility] #32134, Supply, 167.5, cm, 10/18/22 13:30:00 EDT, Height/Length Dosing, 147, kg, 10/18/22 13:30:00 EDT, Weight Dosing Trulicity Pen 1.5 mg/0.5 mL subcutaneous solution: 1.5 mg, SubCutaneous, qWeek, # 4 EA, Refills(s) 0, Pharmacy: [facility] #04366, 168, cm, 12/06/23 14:55:00 EDT, Height/Length Dosing, 139, kg, 12/06/23 14:55:00 EDT, Weight Dosing Ventolin HFA 90 mcg/inh Aerosol-Adpt: 2 puff(s), Inhalation, q6hr for wheezing, 1 EA, Refill(s) 1, [facility] #43982, 167, cm, 09/29/22 11:37:00 EDT, Height/Length Dosing, 149.2, kg, 09/29/22 11:37:00 EDT, Weight Dosing Vitamin D3 5000 intl units oral capsule: 5,000 International_Unit = 1 cap(s), Oral, Daily, with food, # 100 cap(s), Refills(s) 1, Pharmacy: [facility] #98921, 170, cm, 10/13/22 9:06:00 EDT, Height/Length Dosing, 149.2, kg, 09/29/22 11:37:00 EDT, Weight Dosing albuterol 0.083% Inh Rochelle 3 mL: 2.5 mg, 3 mL, Inhalation, q6hr Shortness of breath or wheezing, 100 EA, Refill(s) 1, [facility] #08416, 168, cm, 10/11/23 14:32: (more content not included)... [facility] Comment on above: Result Comment: Elec tronically Signed By: Demar SAMPSON, Zaid Hooper\.br\Date and Time Signed: 12/23/23 11:24 EDT RAD - MRI Reporton 4 RAD - MRI Report [id number]#1. 00TIFF [facility] MRI LUMBAR SPINE WO CONTRAST on 12-22-2023 [...] Dwayne Ruffin MD 12/22/23 Final result Normal [facility] Insurance Correspondenceon 0 12-13-2023 Insurance Correspondence [id number]# 1.00TIFF [facility] Physician Orderon 12-07-2023 Physician Order [id number]# 1.00TIFF [facility] Ambulatory Visit Summaryon 0 12-06-2023 Ambulatory Visit Summary CARMEN BLEDSOE :1960 Visit Date:12/06/2023 Ambulatory Visit Instructions Your Care Team Attending Physician - Adam SAMPSON, Alirio Briggs. Primary Care Physician - Yocasta MSN, 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PINSETTER MECH[employer], Myron Hamilton Referring Physician - NONE, XXXX This Is Your Medications List Misc Prescription (Alcohol wipes) Misc Prescription (Glucometer) Misc Prescription (Lancets) Misc Prescription (Nebulizer Machine) Misc Prescription (Nebulizer Tubing and Mouthpiece Kit) [facility] Prescription (Test Strips) albuterol (Ventolin HFA 90 [...] 10:30 AM EDT With: Where: [facility] Tuesday 12:00 PM EDT With: Where: [facility] Tuesday 10:45 AM EDT With: Marjan SAMPSON, Walker Pritchett Where: [facility] Normal [address] [place] [address]- \.br\ Tuesday 1:00 PM EST \.br\ With: Adam SAMPSON, Alirio Hooper\.br\ Where: [facility]\.br\ Medications\.br\ What How Much When Why Instructions\.br [...] for choosing us for your care.\.br\ \.br\ [facility] Consent for Treatmenton Consent for Treatment [id number]#1 .00TIFF Normal [facility] Ambulatory Visit Summaryon 0 11-25-2023 Ambulatory Visit Summary CARMEN BLEDSOE :1960 Visit Date:11/25/2023 Ambulatory Visit Instructions Your Diagnosis Benign hypertension Hepatomegaly Type 2 diabetes mellitus with morbid obesity Alcohol problem drinking Class 3 severe obesity due to excess calories with serious comorbidity in adult, Morbid (severe) obesity due to excess calories BMI 50.0-59.9, adult Your Care Team Attending Physician - Yocasta SMITH, 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Myron VILLATORO Primary Care Physician - Yocasta SMITH, 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PINSETTER MECHANIC AUTOMATICMyron. This Is Your Medications List tramadol (traMADOL [...] Adam SAMPSON, Alirio Hooper Where: [facility] Tuesday 10:30 AM EDT With: Where: [facility] Tuesday 12:00 PM EDT With: Where: [facility] Tuesday 10:45 AM EDT With: Marjan SAMPSON, Walker Pritchett Where: [facility] Normal [address] [place] [address]- \.br\ You Need to Schedule the Following Appointments\.br \ Follow Up with Yocasta MSN, 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PINSETTER [employer]CH[employer], Myron Hamilton When: In 3 months\.br\ Comments:\.br\ chronic care\.br\ Where:\.br\ [address]\.br\ [place] [address]\.br\ Medications\.br\ What How Much When Why Instructions\.br \ Changed tramadol (traMADOL 50 mg Tab) 1 Tablets By Mouth Every 6 hours as needed for for pain Pickup at [facility] #39589\.br\ Unchanged albuterol (albuterol 0.083% Inh Rochelle 3 [...] if questions or concerns \.br\ Pharmacy Information\.br\ [facility] #57889: [address], [place] [phone]\.br\ \.br\ What How Much When Comments\.br\ Stop [...] ? \.br\ Are exposed to hepa [facility] Family Medicine Office/Clini c Hemaon 11-25-2023 Family Medicine Office/Clinic Note Chief Complaint [...] smear: _ DEXA: _ Labs: 08/10/2023 at [facility] Diabetes/ prediabetes: Eye exam: _ done by _ Foot exam: 08/10/2023 done by Omari VILLATORO A1c: Hgb A1C %: 6.3 % High (08/20/22 15:02:00) Smokers/ former smokers: Low dose lung CT: _ List of Providers: Mathematical Physicist: DR Ramirez Food Service Hotel Runner: Dr Phillip Orthopaedics: Dr Martinez LABS Cr/eGFR: eGFR: >60 (08/05/2023) Creatinine: 0.6 mg/dL (08/10/2023) A1c: Hgb A1C %: 5.4% (08/10/2023) TSH: TSH: 4.64 mcIU/mL (08/20/22 15:02:00) Vit D: No qualifying data available. LDL: LDL Direct: 67 mg/dL (08/10/2023) Lipids: Chol: 206 mg/dL (08/10/2023) HDL: 95 mg/dL (08/10/2023) LDL Direct: 67 mg/dL (08/10/2023) Microalbumin: U Microalb: >12 mcg/mL (08/10/2023) Future Appointments FT.[facility] Appt. Date: 12/06/2023 3:15 PM Scheduled Provider: Adam SAMPSON, Alirio Hooper [address] [place] [address], [address] Fax: [phone] [address] [place] [address], [address] Phone: -- Fax: -- [address] [place] [address], [address] Phone: -- Fax: -- [facility] Appt. Date: 12/23/2023 10:30 AM Scheduled Provider: LADY 3 FT Phone: -- Fax: -- [facility] Appt. Date: 12/23/2023 12:00 PM Scheduled Provider: LADY 1 FT Phone: -- Fax: -- [facility] Appt. Date: 01/13/2024 10:45 AM Scheduled Provider: [facility] [address], [address] Phone: [phone] Fax: [phone] The patient has transitioned to using a [...] negative relapse experience (more content not included)... [facility] Comment on above: Result Comment: Elec tronically Signed By: Yocasta SMITH, Myron MUÑOZ CNP\.br\Date and Time Signed: 11/25/23 20:36 EDT\.br\Electronically Co-Signed [...] to follow these instructions. Medicines ? Take fmgj-gcd-kagbuqx and prescription medicines only as told by your health care provider. ? Do not start taking any new medicine unless your health care provider has approved. These include hcas-cck-sllqqpj medicines, vitamins, herbs, and supplements. Some of [...] provider. Document Revised: 05/19/2022 Document Reviewed: 05/19/2022 [employer] Patient Education ? 2022 [employer] Endocrinology Type 2 Diabetes Mellitus, Self-Care, Adult [...] glucose every (more content not included)... Normal [facility] Basic Metabolic Profon 11-16 Anion gap [Moles/Vol] 10 mmol/L Normal - [facility] Comment on above: Performed By: #### B MP, BNP ####[facility] Mwl1246 [facility] [place] [address] Lab Director: Yury Caba MD BUN/CRE Ratio 20 Normal 9- [facility] Comment on above: Performed By: #### B MP, BNP ####[facility] Iwh2876 [facility] [place], [place] [phone] Director: Yury Caba MD Calcium [Mass/Vol] 9.2 mg/dL Normal 8.6-10.4 [facility] Comment on above: Performed By: #### B MP, BNP ####[facility] Wey0695 [facility] [place] [phone] Director: Yury Caba MD Chloride [Moles/Vol] 99 mmol/L Normal 98-107 [facility] Comment on above: Performed By: #### B MP, BNP ####[facility] Lhf2603 [facility], [place] [phone] Director: Yury Caba MD CO2 [Moles/Vol] 24 mmol/L Normal 20-31 [facility] Comment on above: Performed By: #### B MP, BNP ####[facility] Tet9853 [facility] [place] [phone] Director: Yury Caba MD Creatinine [Mass/Vol] 0.7 mg/dL Normal 0.5-0.9 [facility] Comment on above: Performed By: #### B MP, BNP ####[facility] Lvs[address] [place] [address] Lab Director: Yury Caba MD GFR/1.73 sq M.predicted among non-blacks MDRD (S/P/Bld) [Vol rate/Area] mL/min/{1.73_m2} Normal >60 [facility] Comment on above: Result Comment: These results [...] secretion. Performed By: #### B MP, BNP ####[facility] Cfr6385 [place] [address] Lab Director: Yury Caba MD Glucose [Mass/Vol] 107 mg/dL High 70-99 [facility] Comment on above: Performed By: #### B MP, BNP ####[facility] Bie3487 [place] [address] Lab Director: Yury Caba MD Potassium [Moles/Vol] 4.7 mmol/L Normal 3.7-5.3 [facility] Comment on above: Performed By: #### B MP, BNP ####[facility] Ypm37[address] [place] [address] Lab Director: Yury Caba MD Sodium [Moles/Vol] 133 mmol/L Low 135-144 [facility] Comment on above: Performed By: #### B MP, BNP ####[facility] [address] [place] [address] Lab Director: Yury Caba MD Urea nitrogen [Mass/Vol] 14 mg/dL Normal 8-23 [facility] Comment on above: Performed By: #### B MP, BNP ####[facility] [address] [place] [address] lab Director: Yury Caba MD Brain Natri. Peptideon 11-16 Natriuretic peptide B (Bld) [Mass/Vol] 164 pg/mL Normal <300 [facility] Comment on above: Result Comment: An age-independent cutoff point of 300 pg/ml has a 98% negative predictive value excluding acute heart failure. Performed By: #### B MP, BNP ####[facility] [id number] [place] [address] lab Director: Yury Caba MD Outside Labson 11-17-2023 Outside Labs [id number]#1 .00TIFF Normal [facility] Consent for Treatmenton Consent for Treatment [id number] .00TIFF Normal [facility] Consent for Procedure/Surger yon 11-04-2023 Consent for Procedure/Surgery [id number]#1 .00TIFF Normal [facility] FL ARTHR/ASP/INJ MAJOR JT/BU RSA RT WO USon 11-04-2023 FL ARTHR/ASP/INJ MAJOR JT/BURSA RT WO US Begin Addendum #1 FLUORO DOSE: 84. 497 mGy Reference air kerma (Ka,r) Interpreted by: Casa Minor Jr., MD Signed by: Casa Minor Jr., MD 11/04/23 Edited Result - FINAL Normal [facility] FL ARTHROGRAM RIGHT HIP S AN D Ion 11-04-2023 FL ARTHROGRAM RIGHT HIP S AND I Begin Addendum #1 FLUORO DOSE: 84. 497 mGy Reference air kerma (Ka,r) Interpreted by: Casa Minor Jr., MD Signed by: Casa Minor Jr., MD 11/04/23 Edited Result - FINAL Normal [facility] FL GUIDED NEEDLE PLACEMENTon 11-04-2023 FL GUIDED NEEDLE PLACEMENT Begin Addendum #1 FLUORO DOSE: 84. 497 mGy Reference air kerma (Ka,r) Interpreted by: Casa Minor Jr., MD Signed by: Casa Minor Jr., MD 11/04/23 Edited Result - FINAL Normal [facility] Ambulatory Visit Summaryon 0 11-02-2023 Ambulatory Visit Summary CARMEN BLEDSOE :1960 Visit Date:11/02/2023 Ambulatory Visit Instructions Your Diagnosis Elevated LFTs Hepatomegaly History of alcohol abuse History of colon polyps Smoker Your Care Team Attending Physician - Marjan SAMPSON, Walker Pritchett Primary Care Physician - Yocasta MSN, 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PINSETTER MECH[employer], Myron Hamilton This Is Your Medications List Contact [...] Appointments Tuesday 3:00 PM EDT With: Where: [facility] [place] 2023 3:00 PM EDT With: Where: [facility] Invalid Interpretation Code [address] [place] [address]- \.br\ Tuesday 3:15 PM EDT \.br\ With: Adam SAMPSON, Alirio Hooper\.br\ Where: [facility] [place]\.br\ Tuesday 10:30 AM EDT \.br\ With:\.br\ Where: [facility]\.br\ Tuesday 12:00 PM EDT \.br\ With:\.br\ Where: [facility]\.br\ Tuesday 10:45 AM EDT \.br\ With: Marjan SAMPSON, Walker Pritchett\.br\ Where: [facility] Gastroenterology Office/Clin ic Noteon 11-02-2023 Gastroenterology [...] hx colon cancer. Denies blood thinner use. US liver 08/24/23 @ [facility]: IMPRESSION: Hepatomegaly and hepatic steatosis. EGD/Colon 03/17/20 @ [facility]: POSTOPERATIVE DIAGNOSES: 1. Antral gastritis. 2. Pedunculated [...] POLYP BIOPSY: TUBULAR ADENOMA. CBC/CMP 08/10/23 @ [facility]: RBC: (L) 3.78 MCV (H) 102.6 [...] Will get chronic liver disease panel Ordered: [id number] KIM w/Reflex if POS Antimitochondrial Antibody, Quantitative Colonoscopy (Hospital Procedure) Comprehensive Metabolic Panel Current tobacco smoker 1034F E&M of New Patient Moderate 45-59 Min 46716 EGD Endoscopy (Hospital Procedure) Ferritin Fibroscan (Hospital [...] E&M of New Patient Moderate 45-59 Min 05470 EGD Endoscopy (Hospital Procedure) 3. 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 History of colon polyps (Z86.010: Personal history of colonic polyps) Had multiple TA's 2020, repeat colonoscopy Ordered: Colonoscopy (Hospital Procedure) E&M of New Patient Moderate 45-59 Min 75204 EGD Endoscopy (Hospital Procedure) 5. Smoker (F17.200: Nicotine dependence, unspecified, uncomplicated) Consulted Ordered: Colonoscopy (Hospital Procedure) E&M of New Patient Moderate 45-59 Min 42285 EGD Endoscopy (Hospital Procedure) Follow-up No qualifying [...] Tab, 4 (more content not included)... Normal [facility] Comment on above: Result Comment: Elec tronically Signed By: Marjan SAMPSON, Walker Pritchett\.br\Date and Time Signed: 11/02/23 11:03 EDT Physician Orderon 10-28-2023 Physician Order [id number]# 1.00TIFF Normal [facility] Family Medicine Office/Clini c Noteon 10-27-2023 Family [...] dose lung CT: _ List of Providers: Mathematical Physicist: Dr Ramirez Gastrointestinal: Dr Marjan BENAVIDES Cr/eGFR: eGFR: >60 (10/06/22 09:23:00) Creatinine: 0.8 [...] Microalb: 4.6 mcg/mL (08/20/22 15:02:00) Future Appointments [facility] Appt. Date: 11/02/2023 10:30 AM Scheduled Provider: Marjan SAMPSON, Walker Pritchett [address], [address] [facility] [address] [place], [address] Phone: [phone] Fax: [phone] [facility] SERGEI Yarbrough Appt. Date: 11/10/2023 3:00 PM Scheduled Provider: SERGEI Yarbrough Nurse Phone: -- Fax: -- .[facility] [place] Appt. Date: 12/06/2023 3:15 PM Scheduled Provider: Adam SAMPSON, Alirio Hooper [address] [place], [address] Fax: [phone] She admitted that she relapsed on her [...] appointment with the GI doctor up at [facility] for her hepatomegaly and elevated liver. She [...] Does follow-up with Dr. Ramirez in the [place] office. Has been on her Lasix and [...] the office (more content not included)... Normal [facility] Comment on above: Result Comment: Elec tronically Signed By: Yocasta SMITH, 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 PINSETTER MECHANIC AUTOMATICMyorn\.br\Date and Time Signed: 10/27/23 08:09 EDT\.br\Electronically Co-Signed [...] Primary Care Physician - Yocasta SMITH, Myron ESPINO. This Is Your Medications List Misc Prescription [...] Follow-Up Appointments Tuesday 10:30 AM EDT With: Walker Phillip MD Where: [facility] Invalid Interpretation Code [address] [place] [address]- \.br\ Tuesday 2:40 PM EDT \.br\ With: Yocasta SMITH, 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PINSETTER [employer], Myron Hamilton\.br\ Where: [facility] [place] [facility] Insurance Correspondenceon 0 10-26-2023 Insurance Correspondence [id number]# 1.00TIFF Normal [facility] Patient Educationon 10-26-19 Patient Education Cardiovascular Heart Failure, Self-Care Heart [...] when you have heart failure Medicines Take oiqx-gss-yqhqkjt and prescription medicines only as told by [...] vaccines. Pneu (more content not included)... Normal [facility] Ambulatory Visit Summaryon 0 10-25-2023 Ambulatory Visit Summary CARMEN BLEDSOE :1960 Visit Date:10/25/2023 Ambulatory Visit Instructions Your Diagnosis Benign hypertension Mixed hyperlipidemia Bilateral leg edema Your Care Team Attending Physician - Adam SAMPSON, Alirio Briggs. Primary Care Physician - Yocasta MSN, 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PINSETTER [employer], Myron Hamilton Referring Physician - NONE, XXXX [...] Appointments Tuesday 1:20 PM EDT With: Yocasta SMITH, 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PINSETTER [employer], Myron Hamilton Where: [facility] Invalid Interpretation Code [address] [place] [address]- \.br\ 2023 3:00 PM EDT \.br\ With:\.br\ Where: [facility] Consent for Treatmenton 10-03 Consent for Treatment [id number] .00TIFF Normal [facility] Heart and Vascular Office/Cl inic Noteon 10-25-2023 Heart and Vascular Office/Clinic Note Chief Complaint B/L EDEMA History of Present Illness 62-year-old female with history of bilateral lower extremity edema and diastolic heart failure as well as obesity, tobacco smoking, hypertension, hyperlipidemia. Negative stress test last year. Recently was having increased shortness of breath and lower extremity swelling went to [facility], and was told to take extra [...] 1 refills Vi (more content not included)... [facility] Comment on above: Result Comment: Elec tronically [...] Care Team Attending Physician - Yocasta SMITH, 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Myron VILLATORO Primary Care Physician - Yocasta SMITH, DARLEEN-Myron VILLATORO This Is Your Medications List Misc Prescription (Nebulizer Machine) Misc Prescription (Nebulizer Tubing and Mouthpiece Kit) albuterol (albuterol 0.083% Inh Rochelle 3 mL) dulaglutide (Trulicity Pen 1.5 mg/0.5 mL subcutaneous solution) spironolactone (spironolactone 25 mg Tab) trazodone (traZODONE 50 mg Tab) Contact prescribing physician if questions or concerns Misc Prescription (Alcohol wipes) Misc Prescription (Glucometer) Misc Prescription (Lancets) Misc Prescription (Test Strips) albuterol (Ventolin HFA [...] Adam SAMPSON, Alirio Hooper Where: [facility] [place] Tuesday 1:20 PM EDT With: Yocasta SMITH, Myron ESPINO Where: [facility] [place] Normal [address] [place] [address]- \.br\ You Need to Schedule the Following Appointments\.br \ Follow Up with Yocasta SMITH, SRINIVAS, Myron Hamilton When: In 2 weeks\.br\ Comments:\.br\ chronic care\.br\ Where:\.br\ [facility] [employer]\.br\ [place] [address]\.br\ Medications\.br\ What How Much When Why Instructions\.br \ New albuterol (albuterol 0.083% Inh Rochelle 3 mL) 3 Milliliter Inhalation Every 6 hours as needed for Shortness of breath or wheezing Refills: 1 Pickup at [facility] #35003\.br\ Changed dulaglutide (Trulicity Pen 1.5 mg/ 0.5 mL subcutaneous solution) 1.5 Milligram Subcutaneous Every week Pickup at [facility] #51623\.br\ Changed spironolactone (spironolactone 25 mg Tab) 1 Tablets By Mouth Every day Duration: 90 Days Pickup at [facility] #07331\.br\ Unchanged Misc Prescription (Nebulizer Machine) See instructions Moderate persistent asthma Nebulizer Machine Pickup at [facility] #44262\.br\ Unchanged Misc Prescription (Nebulizer Tubing and Mouthpiece Kit) See instructions Moderate persistent asthma Nebulizer Tubing and Mouthpiece Kit Pickup at [facility] #92529\.br\ Unchanged trazodone (traZODONE 50 mg Tab) 1 Tablets By Mouth Once a day (at bedtime) Pickup at [facility] #60541\.br\ Unchanged albuterol (Ventolin HFA 90 mcg/ inh [...] if questions or concerns \.br\ Pharmacy Information\.br\ [id number]: [address], [place] [id number] [phone]\.br\ \.br\ What How Much When Comments\.br\ Stop [...] personalized treatment goals for you. Generally, the [facility] Family Medicine Office/Clini c Hemaon 10-11-2023 Family Medicine Office/Clinic Note Chief Complaint Pt presents for [facility] ER F/U 10/06/23 for difficulty breathing. Valentino leg swelling HPI Staff ER followup: Hospital: [facility] Visit date:FGDL7T 10/06/23 Symptoms the patient [...] recently at [facility] for difficulty breathing. She was found [...] from me to gastrointestinal at [facility] for further evaluation of her hepatomegaly with [...] failure) The patient was recently admitted to [facility] on 10/06/2023 due to respiratory distress, which led to a diagnosis of heart failure. She exhausted her spironolactone supply and was subsequently advised to double her Lasix dosage, with the final dose scheduled for today. We will send her a refill for her spironolactone. She has an appointment scheduled with her finished garment inspector, Dr. Ramirez, later this month. Given her recent weight gain, it is evident that fluid accumulation results in a resurgence of her condition. She is also scheduled to consult with a bi consultant for an enlarged liver. I am concerned [...] as pres (more content not included)... Normal [facility] Comment on above: Result Comment: Elec tronically Signed By: Yocasta SMITH, 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 Myron VILLATORO\.br\Date and Time Signed: 10/11/23 20:33 EDT\.br\Electronically Co-Signed By: Safia Greenberg\.br\Date and Time Co-Signed: 10/11/23 19:41 EDT Patient Educationon 10-10-19 24 Patient Education Cardiovascular Heart Failure Exacerbation Heart [...] these instructions at home: Medicines ? Take iftx-kqn-jdjoiqg and prescription medicines only as told by your health care provider. ? Do not stop taking your medicines or change the amount you take. If you are having problems or side effects from your medicines, talk to your health care provider. ? If you are having difficulty paying for your medicines, contact a social welfare research worker or your clinic. There are many [...] daily tasks (more content not included)... Normal [facility] ED Note-Physicianon 10-07-19 24 ED Note-Physician [id number] .00TIFF Normal [facility] Basic Metabolic Profon 10-05 Anion gap [Moles/Vol] 12 mmol/L Normal 9-17 [facility] Comment on above: Performed By: #### B DAYANA CEJA BMP, TROPI, CDP #### [facility] [address] [place] [id number] Print Decorator: Yury Caba MD Calcium [Mass/Vol] 9.0 mg/dL Normal 8.6-10.4 [facility] Comment on above: Performed By: #### B DAYANA CEJA BMP, ZACH, CDP #### [facility] [address] [place] [id number] Print Decorator: Yury Caba MD Chloride [Moles/Vol] 100 mmol/L Normal 98-107 [facility] Comment on above: Performed By: #### B DIRECTOR OF STRATEGIC PARTNERSHIPS, DIME, BMP, TROPI, CDP #### [facility] [address] [place], [place] [id number] Print Decorator: Yury Caba MD CO2 [Moles/Vol] 24 mmol/L Normal 20-31 [facility] Comment on above: Performed By: #### B DIRECTOR OF STRATEGIC PARTNERSHIPS, DIME, BMP, TROPI, CDP #### [facility] [address] [place], [place] [phone] Print Decorator: Yury Caba MD Creatinine [Mass/Vol] 0.5 mg/dL Normal 0.5-0.9 [facility] Comment on above: Performed By: #### B DIRECTOR OF STRATEGIC PARTNERSHIPS, DIME, BMP, TROPI, CDP #### [facility] [address] [place] [address] Print Decorator: Yury Caba MD GFR/1.73 sq M.predicted among non-blacks MDRD (S/P/Bld) [Vol rate/Area] mL/min/{1.73_m2} Normal >60 [facility] Comment on above: Result Comment: These results [...] renal tubular secretion. Performed By: #### B DIRECTOR OF STRATEGIC PARTNERSHIPS, DIME, BMP, TROPI, CDP #### [facility] [address] [place], [place] [address] Print Decorator: Yury Caba MD Glucose [Mass/Vol] 122 mg/dL High 70-99 [facility] Comment on above: Performed By: #### B DIRECTOR OF STRATEGIC PARTNERSHIPS, DIME, BMP, TROPI, CDP #### [facility] [address] [place], [place] [phone] Print Decorator: Yury Caba MD Potassium [Moles/Vol] 3.4 mmol/L Low 3.7-5.3 [facility] Comment on above: Performed By: #### B DIRECTOR OF STRATEGIC PARTNERSHIPS, DIME, BMP, TROPI, CDP #### [facility] [address] [place], [place] [id number] Print Decorator: Yury Caba MD Sodium [Moles/Vol] 136 mmol/L Normal 135-144 [facility] Comment on above: Performed By: #### B DIRECTOR OF STRATEGIC PARTNERSHIPS, DIME, BMP, TROPI, CDP #### [facility] [address] [place] [phone] Print Decorator: Yury Caba MD Urea nitrogen [Mass/Vol] 14 mg/dL Normal 8-23 [facility] Comment on above: Performed By: #### B MARCIAL, ADRIELE, BMP, TROPI, CDP #### [facility] [address] [place] [address] Print Decorator: Yury Caba MD Brain Natri. Peptideon 10-05 Natriuretic peptide B (Bld) [Mass/Vol] 3161 pg/mL High <300 [facility] Comment on above: Result Comment: An age-independent cutoff point of 300 pg/ml has a 98% negative predictive value excluding acute heart failure. Performed By: #### B DIRECTOR OF STRATEGIC PARTNERSHIPS, ADRIELE, BMP, TROPI, CDP #### [facility] [address] [place] [phone] Print Decorator: Yury Caba MD CBC with Diffon 10-06-2023 Abs. Basophil 0.02 k/uL Normal 0.00-0.20 [facility] Comment on above: Performed By: #### B DIRECTOR OF STRATEGIC PARTNERSHIPS, ADRIELE, BMP, TROPI, CDP #### [facility] [address] [place] [address] Print Decorator: Yury Caba MD Abs.Imm.Granulocyte 0.02 k/uL Normal 0.00-0.30 [facility] Comment on above: Performed By: #### B DIRECTOR OF STRATEGIC PARTNERSHIPS, DIME, BMP, TROPI, CDP #### [facility] [address] [place] [address] Print Decorator: Yury Caba MD Abs.Neutrophil (Seg) 4.75 k/uL Normal 2.5-7.0 [facility] Comment on above: Performed By: #### B DIRECTOR OF STRATEGIC PARTNERSHIPS, DIME, BMP, TROPI, CDP #### [facility] [address] [place] [phone] Print Decorator: Yury Caba MD Basophils/100 WBC (Bld) 0 % Normal 0-2 [facility] Comment on above: Performed By: #### B DIRECTOR OF STRATEGIC PARTNERSHIPS, DIME, BMP, TROPI, CDP #### [facility] [address] [place] [phone] Print Decorator: Yury Caba MD Eosinophils (Bld) [#/Vol] 0.03 10*3/uL Normal 0.00-0.40 [facility] Comment on above: Performed By: #### B DIRECTOR OF STRATEGIC PARTNERSHIPS, DIME, BMP, TROPI, CDP #### [facility] [address] [place] [address] Print Decorator: Yury Caba MD Eosinophils/100 WBC (Bld) 1 % Normal 0-5 [facility] Comment on above: Performed By: #### B DIRECTOR OF STRATEGIC PARTNERSHIPS, DIME, BMP, TROPI, CDP #### [facility] [address] [place] [phone] Print Decorator: Yury Caba MD Erythrocyte distribution width (RBC) [Ratio] 13.8 % Normal 12.1-15.2 [facility] Comment on above: Performed By: #### B DIRECTOR OF STRATEGIC PARTNERSHIPS, DIME, BMP, TROPI, CDP #### [facility] [address] [place] [phone] Print Decorator: Yury Caba MD Hematocrit (Bld) [Volume fraction] 36.4 % Normal 36.0-46.0 [facility] Comment on above: Performed By: #### B DIRECTOR OF STRATEGIC PARTNERSHIPS, DIME, BMP, TROPI, CDP #### [facility] [address] [place] [address] Print Decorator: Yury Caba MD Hemoglobin (Bld) [Mass/Vol] 12.5 g/dL Normal 12.0-16.0 [facility] Comment on above: Performed By: #### B DIRECTOR OF STRATEGIC PARTNERSHIPS, DIME, BMP, TROPI, CDP #### [facility] [address] [place] [address] Print Decorator: Yury Caba MD Immature granulocytes/100 WBC (Bld) 0 % Normal 0-5 [facility] Comment on above: Performed By: #### B DIRECTOR OF STRATEGIC PARTNERSHIPS, DIME, BMP, TROPI, CDP #### [facility] [address] [place] [address] Print Decorator: Yury Caba MD Lymphocytes (Bld) [#/Vol] 0.54 10*3/uL Low 1.00-4.80 [facility] Comment on above: Performed By: #### B DIRECTOR OF STRATEGIC PARTNERSHIPS, DIME, BMP, TROPI, CDP #### [facility] [address] [place] [phone] Print Decorator: Yury Caba MD Lymphocytes/100 WBC (Bld) 9 % Low 15-40 [facility] Comment on above: Performed By: #### B DIRECTOR OF STRATEGIC PARTNERSHIPS, DIME, BMP, TROPI, CDP #### [facility] [address] [place] [address] Print Decorator: Yury Caba MD MCH (RBC) [Entitic mass] 34.1 pg High 26.0-34.0 [facility] Comment on above: Performed By: #### B DIRECTOR OF STRATEGIC PARTNERSHIPS, DIME, BMP, TROPI, CDP #### [facility] [address] [place] [address] Print Decorator: Yury Caba MD MCHC (RBC) [Mass/Vol] 34.3 g/dL Normal 31.0-37.0 [facility] Comment on above: Performed By: #### B DIRECTOR OF STRATEGIC PARTNERSHIPS, DIME, BMP, TROPI, CDP #### [facility] [address] [place] [address] Print Decorator: Yury Caba MD MCV (RBC) [Entitic vol] 99.2 fL Normal 80.0-100.0 [facility] Comment on above: Performed By: #### B DIRECTOR OF STRATEGIC PARTNERSHIPS, DIME, BMP, TROPI, CDP #### [facility] [address] [place] [address] Print Decorator: Yury Caba MD Monocytes (Bld) [#/Vol] 0.47 10*3/uL Normal 0.00-1.00 [facility] Comment on above: Performed By: #### B DIRECTOR OF STRATEGIC PARTNERSHIPS, DIME, BMP, TROPI, CDP #### [facility] [address] [place] [address] Print Decorator: Yury Caba MD Monocytes/100 WBC (Bld) 8 % Normal 4-8 [facility] Comment on above: Performed By: #### B DIRECTOR OF STRATEGIC PARTNERSHIPS, DIME, BMP, TROPI, CDP #### [facility] [address] [place] [address] (349) Print Decorator: Yury Caba MD Neutrophil (Seg) 82 % High 47-75 [facility] Comment on above: Performed By: #### B DIRECTOR OF STRATEGIC PARTNERSHIPS, DIME, BMP, TROPI, CDP #### [facility] [address] [place] [address] Print Decorator: Yury Caba MD Platelet mean volume (Bld) [Entitic vol] 9.0 fL Normal 6.0-12.0 [facility] Comment on above: Performed By: #### B DIRECTOR OF STRATEGIC PARTNERSHIPS, DIME, BMP, TROPI, CDP #### [facility] [address] [place] [address] (109) Print Decorator: Yury Caba MD Platelets (Bld) [#/Vol] 176 10*3/uL Normal 140-450 [facility] Comment on above: Performed By: #### B DIRECTOR OF STRATEGIC PARTNERSHIPS, DIME, BMP, TROPI, CDP #### [facility] [address] [place], [place] [phone] (730) Print Decorator: Yury Caba MD RBC (Bld) [#/Vol] 3.67 10*6/uL Low 4.00-5.20 [facility] Comment on above: Performed By: #### B DIRECTOR OF STRATEGIC PARTNERSHIPS, DIME, BMP, TROPI, CDP #### [facility] [address] [place] [address] (329) Print Decorator: Yury Caba MD WBC (Bld) [#/Vol] 5.8 10*3/uL Normal 3.5-11.0 [facility] Comment on above: Performed By: #### B DIRECTOR OF STRATEGIC PARTNERSHIPS, DIME, BMP, TROPI, CDP #### [facility] [address] [place] [address] Print Decorator: Yury Caba MD D-Dimer Teston 10-06-2023 D-Dimer Test 0.68 ug/mL FEU High 0.00-0.59 [facility] Comment on above: Result Comment: When combined [...] with distal DVT. Performed By: #### B DIRECTOR OF STRATEGIC PARTNERSHIPS, DAYANA BMP, TROPI, CDP #### [facility] [address] [place] [address] Print Decorator: Yury Caba MD RAD - MISCon 10-06-2023 RAD - MISC [id number] .00TIFF Normal [facility] Troponinon 10-06-2023 Troponin, High Sens 27 ng/L High 0-14 [facility] Comment on above: Result Comment: High Sensitivity Troponin values cannot be compared with other Troponin methodologies. Performed By: #### B MARCIAL, DALY ANNE, TROPI, CDP #### [facility] [address] [place], [place] [id number] Print Decorator: Yury Caba MD XR CHEST (2 VW)on 10-06-2023 XR CHEST (2 VW) EXAM: XR CHEST (2 VW ) HISTORY: Shortness of breath COMPARISON: None. IMPRESSION: FINDINGS/IMPRESSION: 1. Shallow breath with clear lungs. 2. Mild cardiomegaly. Interpreted by: Casa Minor Jr., MD Signed by: Casa Minor Jr., MD 10/06/23 Final result Normal [facility] US LIVERon 08-24-2023 US LIVER EXAMINATION: RIGHT [...] Braulio Crawley DO 08/24/23 Final result Normal [facility] Hemoglobin A1Con 08-11-2023 Glucose [Mass/Vol] 108 mg/dL Normal [facility] Comment on above: Result Comment: The ADA and AACC recommend providing the estimated average glucose result to permit better patient understanding of their HBA1c result. Performed By: #### G LYHGB, LIPR, URNMAB ####[facility] T[address]hk[address]50 [place] [address] Lab Director: Agusto Ferrell MD#### DYLAN ANNE CP, ZFAST ####[facility] Ngq9887 [place] [address] lab Director: Yury Caba MD HbA1c (Bld) [Mass fraction] 5.4 % Normal 4.0-6.0 [facility] Comment on above: Performed By: #### G LYHGB, LIPR, URNMAB ####[facility] Wwqglhxgfel[address]6477 [place] [address] lab Director: Agusto Ferrell MD#### DYLAN ANNE CP, ZFAST ####[facility] Xjy2283 [place] [address] lab Director: Yury Caba MD Lipid Panelon 08-11-2023 Cholesterol [Mass/Vol] 206 mg/dL High NINF - 200 mg/dL [facility] [employer] Comment on above: Cholesterol Guidelines: <200 Desirable 200-240 Borderline >240 Undesirable Cholesterol in HDL [Mass/Vol] 95 mg/dL 40 - PINF mg/dL [employer] Comment on above: HDL Guidelines: <40 Undesirable 40-59 Borderline >59 Desirable Cholesterol in LDL [Mass/Vol] 67 mg/dL 0 - 130 mg/dL [facility] Comment on above: LDL Guidelines: <100 Desirable 100-129 Near to/above Desirable 130-159 Borderline >159 Undesirable Direct (measured) LDL and calculated LDL are not interchangeable tests. Cholesterol.total/Ch olesterol in HDL [Mass ratio] 2.2 {ratio} NINF - 5 [facility] Interpretation and review of laboratory results Abnormal [facility] Triglyceride [Mass/Vol] 221 mg/dL High NINF - 150 mg/dL [facility] Comment on above: Triglyceride Guidelines: <150 Desirable 150-199 Borderline 200-499 High >499 Very high Based on AHA Guidelines for fasting triglyceride, April 2012. [facility] Lipid Profileon 08-11-2023 Cholesterol [Mass/Vol] 206 mg/dL High <200 [facility] Comment on above: Result Comment: Cholesterol Guidelines: <200 Desirable 200-240 Borderline >240 Undesirable Performed By: #### G LYHGB, LIPR, URNMAB ####[facility] [address]am5620 [place] [address] Lab Director: Agusto Ferrell MD#### DYLAN ANNE, CP, ZFAST ####[facility] Fpc0908 [place] [address] Lab Director: Yury Caba MD Cholesterol in HDL [Mass/Vol] 95 mg/dL Normal >40 [facility] Comment on above: Result Comment: HDL Guidelines: <40 Undesirable 40-59 Borderline >59 Desirable Performed By: #### G LYHGB, LIPR, URNMAB ####[facility] Vdlqc[address]yt[address]5762 [place] [address] Lab Director: Agusto Ferrell MD#### DYLAN ANNE, CP, ZFAST ####[facility] Eqx3482 [place] [address] Lab Director: Yury Caba MD Cholesterol in LDL [Mass/Vol] 67 mg/dL Normal 0-130 [facility] Comment on above: Result Comment: LDL Guidelines: <100 Desirable 100-129 Near to/above Desirable 130-159 Borderline >159 Undesirable Direct (measured) LDL and calculated LDL are not interchangeable tests. Performed By: #### G LYHGB, LIPR, URNMAB ####[facility] Qaaukfytyibc2615 [place] [address] Lab Director: Agusto Ferrell MD#### DYLAN ANNE, CP, ZFAST ####[facility] Ikd4749 [place] [address] Lab Director: Yury Caba MD Cholesterol.total/Ch olesterol in HDL [Mass ratio] 2.2 {ratio} Normal <5 [facility] Comment on above: Performed By: #### G LYHGB, LIPR, URNMAB ####[facility] Dkdljliogoie5709 [place] [address] Lab Director: Agusto Ferrell MD#### DYLAN ANNE, TAINA, ZFAST ####[facility] Bfn8168 [place] [address] Lab Director: Yury Caba MD Triglyceride [Mass/Vol] 221 mg/dL High <150 [facility] Comment on above: Result Comment: Triglyceride Guidelines: <150 Desirable 150-199 Borderline 200-499 High >499 Very high Based on AHA Guidelines for fasting triglyceride, April 2012. Performed By: #### G LYHGB, LIPR, URNMAB ####[facility] [address]ab[address]x2141 [place] [address] Lab Director: Agusto Ferrell MD#### DYLAN ANNE, CP, ZFAST ####[facility] Bat[address] [place] [address] Lab Director: Yury Caba MD Microalb.,Random Uron 2023 Creatinine [Mass/Vol] 45.3 mg/dL Normal 28.0-217.0 [facility] Comment on above: Performed By: #### G LYHGB, LIPR, URNMAB ####[facility] Ygcjoyiargxd8304 [place], [place] [id number] lab Director: Agusto Ferrell MD#### DYLAN ANNE, CP, ZFAST ####[facility] Hjd7122 [place], [place] 0872090 lab Director: Yury Caba MD Microalb/Creat Ratio Can not be calculated Normal <25 [facility] Comment on above: Performed By: #### G LYHGB, LIPR, URNMAB ####[facility] N[address]baut[address] [place], [place] [id number] lab Director: Agusto Ferrell MD#### DYLAN ANNE, CP, ZFAST ####[facility] Vjp6154 [place], [place] 6455490 lab Director: Yury Caba MD Microalbumin conc. <12 Normal <21 [facility] Comment on above: Performed By: #### G LYHGB, LIPR, URNMAB ####[facility] S[address]kw[address]ffrxb[address]6399 [place], [place] [id number] lab Director: Agusto Ferrell MD#### DYLAN ANNE, CP, ZFAST ####[facility] Spa[address] [place], [place] [id number] lab Director: Yury Caba MD Microalbumin, Uron 4 Albumin DL <= 20 mg/L (U) [Mass/Vol] mg/L [facility] - 21 mg/L [facility] Albumin/Creatinine DL <= 20 mg/L (U) [Ratio] Can not be calculated [facility] Creatinine (U) [Mass/Vol] 45.3 mg/dL 28.0 - 217.0 mg/dL [facility] XR HIP 2-3 VW W PELVIS RIGHT [...] Zaid Romero MD 08/11/23 Final result Normal [facility] XR Pelvis and Hip - right 2 Viewson 08-11-2023 Moderate degenerative joint space narrowing involves right hip without an acute osseous abnormality identified. [facility] EXAM: XR HIP 2-3 VW W [...] hip shows no fracture or stress injury. [facility] Zaid Romero MD - 08/11/2023 EXAM: [...] hip without an acute osseous abnormality identified. [facility] XR Pelvis and Hip - right 2 ViewsOrdered By: Zaid Romero on 08-11-2023 [facility] Work Phone: CBC with Auto Differentialon 08-10-2023 Basophils (Bld) [#/Vol] 0.03 10*3/uL [facility] [employer] Basophils/100 WBC (Bld) 1 % 0 - 2 % [facility] Eosinophils (Bld) [#/Vol] 0.03 10*3/uL [facility] [employer] Eosinophils/100 WBC (Bld) 1 % 0 - 5 % [facility] Erythrocyte distribution width (RBC) [Ratio] 14.6 % 12.1 - 15.2 % [facility] Hematocrit (Bld) [Volume fraction] 38.8 % 36.0 - 46.0 % [facility] Hemoglobin (Bld) [Mass/Vol] 12.8 g/dL 12.0 - 16.0 g/dL [facility] Immature granulocytes (Bld) [#/Vol] 0.01 10*3/uL [facility] Immature granulocytes/100 WBC (Bld) 0 % 0 - 5 % [facility] Interpretation and review of laboratory results Abnormal [facility] Lymphocytes/100 WBC (Bld) 22 % 15 - 40 % [facility] Lymphocytes/100 WBC (Bld) 0.98 % Low [facility] MCH (RBC) [Entitic mass] 33.9 pg 26.0 - 34.0 pg [facility] MCHC (RBC) [Mass/Vol] 33.0 g/dL 31.0 - 37.0 g/dL [facility] MCV (RBC) [Entitic vol] 102.6 fL High 80.0 - 100.0 fL [facility] Monocytes/100 WBC (Bld) 8 % 4 - 8 % [facility] Monocytes/100 WBC (Bld) 0.34 % [facility] Neutrophils/100 WBC (Bld) 68 % 47 - 75 % [facility] Platelet mean volume (Bld) [Entitic vol] 9.0 fL 6.0 - 12.0 fL [facility] Platelets (Bld) [#/Vol] 192 10*3/uL [facility] RBC (Bld) [#/Vol] 3.78 10*6/uL Low 4.00 - 5.20 m/uL [facility] Segmented neutrophils/100 WBC (Bld) 2.99 % [facility] WBC other (Bld) [#/Vol] 4.4 [facility] CBC with Diffon 08-10-2023 Abs. Basophil 0.03 k/uL Normal 0.00-0.20 [facility] Comment on above: Performed By: #### G LYHGB, LIPR, URNMAB ####[address] [place] [address] Lab Director: Agusto Ferrell MD#### DIME, CDP, CP, ZFAST ####[facility] Oao07[address] [place], [place] [address])[phone] Director: Yury Caba MD Abs.Imm.Granulocyte 0.01 k/uL Normal 0.00-0.30 [facility] Comment on above: Performed By: #### G LYHGB, LIPR, URNMAB ####[place] [address] Lab Director: Agusto Ferrell MD#### DIME, CDP, CP, ZFAST ####[facility] Twy[address] [place], [place] [address])[phone] Director: Yury Caba MD Abs.Neutrophil (Seg) 2.99 k/uL Normal 2.5-7.0 [facility] Comment on above: Performed By: #### G LYHGB, LIPR, URNMAB ####[place] [address] Lab Director: Agusto Ferrell MD#### DIME, CDP, CP, ZFAST ####[facility] Hkl4413 [place], [place] [address])[phone] Director: Yury Caba MD Basophils/100 WBC (Bld) 1 % Normal 0-2 [facility] Comment on above: Performed By: #### G LYHGB, LIPR, URNMAB ####[address] [address] Lab Director: Agusto Ferrell MD#### DIME, CDP, CP, ZFAST ####[facility] Znk5231 [place] [address] Lab Director: Yury Caba MD Eosinophils (Bld) [#/Vol] 0.03 10*3/uL Normal 0.00-0.40 [facility] Comment on above: Performed By: #### G LYHGB, LIPR, URNMAB ####[place] [address] Lab Director: Agusto Ferrell MD#### DIME, CDP, CP, ZFAST ####[facility] Uby8975 [place], [place] [address])[phone] Director: Yury Caba MD Eosinophils/100 WBC (Bld) 1 % Normal 0-5 [facility] Comment on above: Performed By: #### G LYHGB, LIPR, URNMAB ####[place] [address] Lab Director: Agusto Ferrell MD#### DIME, CDP, CP, ZFAST ####[facility] Pwx0166 [place], [place] [address])[phone] Director: Yury Caba MD Erythrocyte distribution width (RBC) [Ratio] 14.6 % Normal 12.1-15.2 [facility] Comment on above: Performed By: #### G LYHGB, LIPR, URNMAB ####[place] [address] Lab Director: Agusto Ferrell MD#### DIME, CDP, CP, ZFAST ####[facility] Kfj0684 [place], [place] [address])[phone] Director: Yury Caba MD Hematocrit (Bld) [Volume fraction] 38.8 % Normal 36.0-46.0 [facility] Comment on above: Performed By: #### G LYHGB, LIPR, URNMAB ####[address] [place] [address] Lab Director: Agusto Ferrell MD#### DIME, CDP, CP, ZFAST ####[facility] Bqs9352 [place] [address] Lab Director: Yury Caba MD Hemoglobin (Bld) [Mass/Vol] 12.8 g/dL Normal 12.0-16.0 [facility] Comment on above: Performed By: #### G LYHGB, LIPR, URNMAB ####[address] [address] Lab Director: Agusto Ferrell MD#### DIMDarlene, CDP, CP, ZFAST ####[facility] Oee[address] [place] [address] Lab Director: Yury Caba MD Immature granulocytes/100 WBC (Bld) 0 % Normal 0-5 [facility] Comment on above: Performed By: #### G LYHGB, LIPR, URNMAB ####[address] [address] Lab Director: Agusto Ferrell MD#### DIMDarlene, CDP, CP, ZFAST ####[facility] Sgd2507 [place] [address] Lab Director: Yury Caba MD Lymphocytes (Bld) [#/Vol] 0.98 10*3/uL Low 1.00-4.80 [facility] Comment on above: Performed By: #### G LYHGB, LIPR, URNMAB ####[address] [address] Lab Director: Agusto Ferrell MD#### DIME, CDP, CP, ZFAST ####[facility] Bbg3313 [place] [address] Lab Director: Yury Caba MD Lymphocytes/100 WBC (Bld) 22 % Normal 15-40 [facility] Comment on above: Performed By: #### G LYHGB, LIPR, URNMAB ####[address] [address] Lab Director: Agusto Ferrell MD#### DIME, CDP, CP, ZFAST ####[facility] [address] [place] [phone] Lab Director: Yury Caba MD MCH (RBC) [Entitic mass] 33.9 pg Normal 26.0-34.0 [facility] Comment on above: Performed By: #### G LYHGB, LIPR, URNMAB ####[address] [address] Lab Director: Agusto Ferrell MD#### DIME, CDP, CP, ZFAST ####[facility] Dqk9285 [place] [address] lab Director: Yury Caba MD MCHC (RBC) [Mass/Vol] 33.0 g/dL Normal 31.0-37.0 [facility] Comment on above: Performed By: #### G LYHGB, LIPR, URNMAB ####[address] [address] Lab Director: Agusto Ferrell MD#### DIME, CDP, CP, ZFAST ####[facility] [address] [place] [phone] Lab Director: Yury Caba MD MCV (RBC) [Entitic vol] 102.6 fL High 80.0-100.0 [facility] Comment on above: Performed By: #### G LYHGB, LIPR, URNMAB ####[address] [address] Lab Director: Agusto Ferrell MD#### DIME, CDP, CP, ZFAST ####[facility] Xvs3789 [place] [address] Lab Director: Yury Caba MD Monocytes (Bld) [#/Vol] 0.34 10*3/uL Normal 0.00-1.00 [facility] Comment on above: Performed By: #### G LYHGB, LIPR, URNMAB ####[address] [address] Lab Director: Agusto Ferrell MD#### DIME, CDP, CP, ZFAST ####[facility] Qdt6164 [place] [address] Lab Director: Yury Caba MD Monocytes/100 WBC (Bld) 8 % Normal 4-8 [facility] Comment on above: Performed By: #### G LYHGB, LIPR, URNMAB ####[address] [address] Lab Director: Agusto Ferrell MD#### DIMDarlene, DYLAN, CP, ZFAST ####[facility] Lnu4495 [place] [address] Lab Director: Yury Caba MD Neutrophil (Seg) 68 % Normal 47-75 [facility] Comment on above: Performed By: #### G LYHGB, LIPR, URNMAB ####[address] [address] Lab Director: Agusto Ferrell MD#### DIME, CDP, CP, ZFAST ####[facility] Evz0359 [place] [address] Lab Director: Yury Caba MD Platelet mean volume (Bld) [Entitic vol] 9.0 fL Normal 6.0-12.0 [facility] Comment on above: Performed By: #### G LYHGB, LIPR, URNMAB ####[address] [place], [place] [phone])[phone] Director: Agusto Ferrell MD#### DIME, CDP, CP, ZFAST ####[facility] E[address] [place], [place] [phone] Director: Yury Caba MD Platelets (Bld) [#/Vol] 192 10*3/uL Normal 140-450 [facility] Comment on above: Performed By: #### G LYHGB, LIPR, URNMAB ####[facility] Pwnimealphra4030 [place], [place] [phone] Director: Agusto Ferrell MD#### DIME, CDP, CP, ZFAST ####[facility] Vtq4045 [place], [place] 26446419)[phone] Director: Yury Caba MD RBC (Bld) [#/Vol] 3.78 10*6/uL Low 4.00-5.20 [facility] Comment on above: Performed By: #### G LYHGB, LIPR, URNMAB ####[facility] Lggmjffupusu7394 [place], [place] [phone])[phone] Director: Agusto Ferrell MD#### DIME, CDP, CP, ZFAST ####[facility] Wuf4030 [place], [place] [phone])[phone] Director: Yury Caba MD WBC (Bld) [#/Vol] 4.4 10*3/uL Normal 3.5-11.0 [facility] Comment on above: Performed By: #### G LYHGB, LIPR, URNMAB ####[facility] [address]zf[address]f55[address] [place], [place] [phone] Director: Agusto Ferrell MD#### DIME, CDP, CP, ZFAST ####[facility] Szh3897 [place], [place] [phone] Director: Yury Caba MD Comp Metabolic Profon 2023 Albumin [Mass/Vol] 4.3 g/dL Normal 3.5-5.2 [facility] Comment on above: Performed By: #### G LYHGB, LIPR, URNMAB ####[facility] Nrmf[address]izn7655 [place] [address] Lab Director: Agusto Ferrell MD#### DYLAN ANNE, CP, ZFAST ####[facility] Ifb4384 [place] [address] Lab Director: Yury Caba MD Alkaline Phos 169 U/L High 35-104 [facility] Comment on above: Performed By: #### G LYHGB, LIPR, URNMAB ####[facility] A[address]zynqcd7083 [place] [address] Lab Director: Agusto Ferrell MD#### DYLAN ANNE, CP, ZFAST ####[facility] Otb7187 [place] [address] Lab Director: Yury Caba MD ALT [Catalytic activity/Vol] 84 U/L High 5-33 [facility] Comment on above: Performed By: #### G LYHGB, LIPR, URNMAB ####[facility] Y[address]buah4832 [place] [address] Lab Director: Agusto Ferrell MD#### DYLAN ANNE, CP, ZFAST ####[facility] Zhh9296 [place] [address] Lab Director: Yury Caba MD Anion gap [Moles/Vol] 13 mmol/L Normal 9-17 [facility] Comment on above: Performed By: #### G LYHGB, LIPR, URNMAB ####[facility] Betc[address]qiwj8625 [place] [address] Lab Director: Agusto Ferrell MD#### DIME, CDP, CP, ZFAST ####[facility] Sgb1578 [place] [address] Lab Director: Yury Caba MD AST [Catalytic activity/Vol] 83 U/L High <32 [facility] Comment on above: Performed By: #### G LYHGB, LIPR, URNMAB ####[address] [place] [address] Lab Director: Agusto Ferrell MD#### DIME, CDP, CP, ZFAST ####[facility] Rmq0657 [place], [place] 7583890 Lab Director: Yury Caba MD Bilirubin [Mass/Vol] 0.4 mg/dL Normal 0.3-1.2 [facility] Comment on above: Performed By: #### G LYHGB, LIPR, URNMAB ####[address] [address] Lab Director: Agusto Ferrell MD#### DIMDarlene, CDP, CP, ZFAST ####[facility] Vjp3364 [place], [place] 9240590 Lab Director: Yury Caba MD BUN/CRE Ratio 17 Normal 9-20 [facility] Comment on above: Performed By: #### G LYHGB, LIPR, URNMAB ####[facility] [address] [place] [address] Lab Director: Agusto Ferrell MD#### DIME, CDP, CP, ZFAST ####[facility] Dcx2373 [place], [place] 7283490 Lab Director: Yury Caba MD Calcium [Mass/Vol] 9.3 mg/dL Normal 8.6-10.4 [facility] Comment on above: Performed By: #### G LYHGB, LIPR, URNMAB ####[address] [place] [address] Lab Director: Agusto Ferrell MD#### DYLAN ANNE, CP, ZFAST ####[facility] Xrp2006 [place] [address] Lab Director: Yury Caba MD Chloride [Moles/Vol] 98 mmol/L Normal 98-107 [facility] Comment on above: Performed By: #### G LYHGB, LIPR, URNMAB ####[facility] Vpxrclmbttao2249 [place] [address] Lab Director: Agusto Ferrell MD#### DYLAN ANNE CP, ZFAST ####[facility] Wac8272 [place] [address] Lab Director: Yury Caba MD CO2 [Moles/Vol] 26 mmol/L Normal 20-31 [facility] Comment on above: Performed By: #### G LYHGB, LIPR, URNMAB ####[facility] [place] [address] Lab Director: Agusto Ferrell MD#### DYLAN ANNE, CP, ZFAST ####[facility] Tki3259 [place] [address] Lab Director: Yury Caba MD Creatinine [Mass/Vol] 0.6 mg/dL Normal 0.5-0.9 [facility] Comment on above: Performed By: #### G LYHGB, LIPR, URNMAB ####[facility] [place] [address] Lab Director: Agusto Ferrell MD#### DYLAN ANNE, CP, ZFAST ####[facility] Fjh6745 [place] [address] Lab Director: Yury Caba MD GFR/1.73 sq M.predicted among non-blacks MDRD (S/P/Bld) [Vol rate/Area] mL/min/{1.73_m2} Normal >60 [facility] Comment on above: Result Comment: These results [...] Performed By: #### G LYHGB, LIPR, URNMAB ####[address] [place], [place] 330[address]8 Lab Director: Agusto Ferrell MD#### DYLAN ANNE CP, ZFAST ####[facility] Uni[address] [place], [place] 6684590 Lab Director: Yury Caba MD Glucose [Mass/Vol] 91 mg/dL Normal 70-99 [facility] Comment on above: Performed By: #### G LYHGB, LIPR, URNMAB ####[facility] [address] [place] [address] Lab Director: Agusto Ferrell MD#### DYLAN ANNE CP, ZFAST ####[facility] Ijm4990 [place] [address] Lab Director: Yury Caba MD Potassium [Moles/Vol] 4.3 mmol/L Normal 3.7-5.3 [facility] Comment on above: Performed By: #### G LYHGB, LIPR, URNMAB ####[facility] [address] [place] [address] Lab Director: Agusto Ferrell MD#### DYLAN ANNE CP, ZFAST ####[facility] Akj5955 [place], [place] 8176290 Lab Director: Yury Caba MD Protein [Mass/Vol] 7.2 g/dL Normal 6.4-8.3 [facility] Comment on above: Performed By: #### G LYHGB, LIPR, URNMAB ####[facility] [address] [place] [address] Lab Director: Agusto Ferrell MD#### DYLAN ANNE, CP, ZFAST ####[facility] Jvh2494 [place] [address] Lab Director: Yury Caba MD Sodium [Moles/Vol] 137 mmol/L Normal 135-144 [facility] Comment on above: Performed By: #### G LYHGB, LIPR, URNMAB ####[facility] [address]5661 [place] [address] Lab Director: Agusto Ferrell MD#### DYLAN ANNE, TAINA, ZFAST ####[facility] Jxd5601 [place] [address] Lab Director: Yury Caba MD Urea nitrogen [Mass/Vol] 10 mg/dL Normal 8-23 [facility] Comment on above: Performed By: #### G LYHGB, LIPR, URNMAB ####[facility] [address]fibc[address] [place] [address] Lab Director: Agusto Ferrell MD#### DYLAN ANNE, CP, ZFAST ####[facility] Zbl6923 [place] [address] Lab Director: Yury Caba MD Comprehensive Metabolic Pane usman 08-10-2023 Albumin [Mass/Vol] 4.3 g/dL 3.5 - 5.2 g/dL [facility] ALP [Catalytic activity/Vol] 169 U/L High 35 - 104 U/L [facility] ALT [Catalytic activity/Vol] 84 U/L High 5 - 33 U/L [facility] Anion gap [Moles/Vol] 13 mmol/L 9 - 17 mmol/L [facility] AST [Catalytic activity/Vol] 83 U/L High NINF - 32 U/L [facility] Bilirubin [Mass/Vol] 0.4 mg/dL 0.3 - 1.2 mg/dL [facility] Calcium [Mass/Vol] 9.3 mg/dL 8.6 - 10.4 mg/dL [facility] Chloride [Moles/Vol] 98 mmol/L 98 - 107 mmol/L [facility] CO2 [Moles/Vol] 26 mmol/L 20 - 31 mmol/L [facility] Creatinine [Mass/Vol] 0.6 mg/dL 0.5 - 0.9 mg/dL [facility] GFR/1.73 sq M.predicted MDRD (S/P/Bld) [Vol rate/Area] - PINF [facility] Comment on above: These results are [...] [Mass/Vol] 91 mg/dL 70 - 99 mg/dL [facility] Interpretation and review of laboratory results Abnormal [facility] Potassium [Moles/Vol] 4.3 mmol/L 3.7 - 5.3 mmol/L [facility] Protein [Mass/Vol] 7.2 g/dL 6.4 - 8.3 g/dL [facility] Sodium [Moles/Vol] 137 mmol/L 135 - 144 mmol/L [facility] Urea nitrogen [Mass/Vol] 10 mg/dL 8 - 23 mg/dL [facility] Urea nitrogen/Creatinine [Mass ratio] 17 mg/mg 9 - 20 [facility] D-Dimer Teston 08-10-2023 D-Dimer Test 0.51 ug/mL FEU Normal 0.00-0.59 [facility] Comment on above: Result Comment: When combined [...] Performed By: #### G LYHGB, LIPR, URNMAB ####[facility] [id number] [place] [address] Lab Director: Agusto Ferrell MD#### DYLAN ANNE, CP, ZFAST ####[facility] [id number] [place], [place] [id number] Lab Director: Yury Caba MD D-Dimer, Quantitativeon Fibrin D-dimer FEU (PPP) [Mass/Vol] 0.51 [facility] Comment on above: When combined with [...] more prevalent in patients with distal DVT. [facility] Patient fasting?on 4 Patient fasting? Patient Refused Normal [facility] Comment on above: Performed By: #### G LYHGB, LIPR, URNMAB ####[facility] [id number] [place] [address] Lab Director: Agusto Ferrell MD#### DAYANA, DYLAN, CP, ZFAST ####[facility] [id number] [place] [address] Lab Director: Yury Caba MD XR Pelvis and Hip - right 2 Viewson 08-10-2023 Radiology Study observation (narrative) [facility] VL DUP LOWER EXTREMITY VENOU S BILATERALon 12-01-2022 Negative. [facility] EXAM: VL DUP LOWER EXTREMITY VENOUS [...] within the superficial or deep system bilaterally. [facility] Casa Minor Jr., MD - 12/01/2022 [...] superficial or deep system bilaterally. IMPRESSION: Negative. [employer] Phone: Radiology Study observation (narrative) [employer] Phone: VL DUP LOWER EXTREMITY VENOU S BILATERALOrdered By: Casa Minor on 12-01-2022 [employer] Phone: XR CERVICAL SPINE (4-5 VIEWS )on 10-19-2022 FINDINGS/IMPRESSION: 1. Moderate disc space narrowing and anterior osteophyte formation from C4-C5 inferiorly. 2. Intervertebral foramina show minimal narrowing bilaterally due to facet and uncovertebral osteophytes. 3. No fracture. [facility] EXAM: XR CERVICAL SPINE (4-5 VIEWS). HISTORY: Left hand weakness. COMPARISON: None. [facility] Casa Minor Jr., MD - 10/19/2022 EXAM: XR CERVICAL SPINE (4-5 VIEWS). HISTORY: Left hand weakness. COMPARISON: None. IMPRESSION: FINDINGS/IMPRESSION: 1. Moderate disc space narrowing and anterior osteophyte formation from C4-C5 inferiorly. 2. Intervertebral foramina show minimal narrowing bilaterally due to facet and uncovertebral osteophytes. 3. No fracture. [employer] Phone: Radiology Study observation (narrative) [employer] Phone: XR CERVICAL SPINE (4-5 VIEWS )Ordered By: Casa Minor on 10-19-2022 [employer] Phone: XR LUMBAR SPINE (MIN 4 VIEWS )on 10-19-2022 FINDINGS/IMPRESSION: 1. Moderate to moderately severe diffuse disc space narrowing and osteophyte formation similar to previous. 2. Mild facet degenerative change L4-L5 and L5-S1. 3. No fracture or pars defects. 4. Slight convex right lumbar curve unchanged. [facility] EXAM: XR LUMBAR SPIN E (MIN 4 VIEWS) HISTORY: Weakness of both legs COMPARISON: CT abdomen and pelvis 02/07/2020. [facility] RIS CONSOL[facility] Casa Minor Jr., MD - 10/19/2022 EXAM: XR LUMBAR SPINE (MIN 4 VIEWS) HISTORY: Weakness of both legs COMPARISON: CT abdomen and pelvis 02/07/2020. IMPRESSION: FINDINGS/IMPRESSION: 1. Moderate to moderately severe diffuse disc space narrowing and osteophyte formation similar to previous. 2. Mild facet degenerative change L4-L5 and L5-S1. 3. No fracture or pars defects. 4. Slight convex right lumbar curve unchanged. [employer] Work Phone: Radiology Study observation (narrative) Anteryon [facility] happn [employer] Work Phone: XR LUMBAR SPINE (MIN 4 VIEWS )Ordered By: Casa Minor on 10-19-2022 [facility] [employer] Work Phone: Glucose, Whole Bloodon 10-15 Glucose [Mass/Vol] 127 mg/dL High 65 - 99 mg/dL [facility] Interpretation and review of laboratory results Abnormal [facility] POCT glucoseOrdered By: Dilan Prescott on 10-15-2022 Interpretation and review of laboratory results Normal [facility] happn [employer] QC OK? y [facility] [employer] Brain Natriuretic Peptideon 10-14-2022 Natriuretic peptide B (Bld) [Mass/Vol] 42 pg/mL NINF - 300 pg/mL [facility] [employer] Comment on above: An age-independent cutoff point of 300 pg/ml has a 98% negative predictive value excluding acute heart failure. CBC with Auto Differentialon 10-14-2022 Absolute Eos # 0.10 [place] [facility] Absolute Lymph # 1.60 [facility] Absolute Ait[place] # 0.40 [facility] [employer] Basophils (Bld) [#/Vol] 0.00 10*3/uL [facility] Basophils/100 WBC (Bld) 1 % 0 - 2 % [facility] Differential Type YES [facility] Eosinophils/100 WBC (Bld) 2 % 0 - 5 % [facility] Hematocrit (Bld) [Volume fraction] 41.4 % 36 - 46 % [facility] Hemoglobin (Bld) [Mass/Vol] 13.5 g/dL 12.0 - 16.0 g/dL [facility] Interpretation and review of laboratory results Abnormal [facility] Lymphocytes/100 WBC (Bld) 24 % 15 - 40 % [facility] MCH (RBC) [Entitic mass] 30.8 pg 26 - 34 pg [facility] MCHC (RBC) [Mass/Vol] 32.7 g/dL 31 - 37 g/dL [facility] MCV (RBC) [Entitic vol] 94.3 fL 80 - 100 fL [facility] Monocytes/100 WBC (Bld) 5 % 4 - 8 % [facility] Platelet distribution width (Bld) [Ratio] 16.4 % High 12.1 - 15.2 % [facility] Platelets (Bld) [#/Vol] 264 10*3/uL [facility] RBC (Bld) [#/Vol] 4.39 10*6/uL 4.0 - 5.2 m/uL [facility] Segmented neutrophils/100 WBC (Bld) 68 % 47 - 75 % [facility] Segs Absolute 4.70 [facility] WBC (Bld) [#/Vol] 6.9 10*3/uL [facility] CMPon 10-14-2022 Albumin [Mass/Vol] 4.4 g/dL 3.5 - 5.2 g/dL [facility] ALP [Catalytic activity/Vol] 86 U/L 35 - 104 U/L [facility] ALT [Catalytic activity/Vol] 33 U/L 5 - 33 U/L [facility] Anion gap [Moles/Vol] 14 mmol/L 9 - 17 mmol/L [facility] AST [Catalytic activity/Vol] 29 U/L NINF - 32 U/L [facility] Bilirubin [Mass/Vol] 0.3 mg/dL 0.3 - 1.2 mg/dL [facility] Calcium [Mass/Vol] 8.8 mg/dL 8.6 - 10.4 mg/dL [facility] Chloride [Moles/Vol] 96 mmol/L Low 98 - 107 mmol/L [facility] CO2 [Moles/Vol] 23 mmol/L 20 - 31 mmol/L [facility] Creatinine [Mass/Vol] 0.8 mg/dL 0.50 - 0.90 mg/dL [facility] GFR/1.73 sq M.predicted MDRD (S/P/Bld) [Vol rate/Area] - PINF [facility] Comment on above: These results are [...] 108 mg/dL High 70 - 99 mg/dL [facility] Potassium [Moles/Vol] 3.9 mmol/L 3.7 - 5.3 mmol/L [facility] Protein [Mass/Vol] 7.4 g/dL 6.4 - 8.3 g/dL [facility] Sodium [Moles/Vol] 133 mmol/L Low 135 - 144 mmol/L [facility] Urea nitrogen [Mass/Vol] 11 mg/dL 6 - 20 mg/dL [facility] Urea nitrogen/Creatinine (Bld) [Mass ratio] 14 9 - 20 [facility] Ethanolon 10-14-2022 Ethanol [Mass/Vol] 230 mg/dL High NINF - 10 mg/dL B ON [facility] Ethanol percent 0.23 % [facility] No Panel Informationon 10-14 [facility] Interpretation and review of laboratory results Abnormal [facility] Troponinon 10-14-2022 Troponin I.cardiac DL <= 0.01 ng/mL [Mass/Vol] 6 ng/L 0 - 14 ng/L [facility] Comment on above: High Sensitivity Tro [...] are intact. [facility] RIS CONSOLIDATED Monroe Grant, DO - 10/14/2022 EXAM: XR CHEST PORTABLE HISTORY: Reason for exam:->sob COMPARISON: Portable chest from 06/18/2018. TECHNIQUE: Portable chest was done at 9:46 PM. FINDINGS: Trachea, mediastinum and diaphragm are unremarkable. Heart size is mildly prominent. Mild bibasilar atelectasis is noted. No effusion or nodule or thorax is noted. Bony elements are intact. IMPRESSION: 1. Mild cardiomegaly. 2. Mild bibasilar atelectasis. [employer] Work Phone: Radiology Study observation (narrative) [employer] Work Phone: XR CHEST PORTABLEOrdered By: Monroe Grant on 10-14-2022 [employer] Work Phone: CKon 10-13-2022 CK [Catalytic activity/Vol] 39 U/L 26 - 192 U/L [employer] Vitamin D 25 Hydroxyon 10-13 25-hydroxyvitamin D3 [Mass/Vol] 19.9 ng/mL Low 29.9 - PINF ng/mL [employer] Comment on above: Reference Range: Vitamin D status Range Deficiency <20 ng/mL Mild Deficiency 20-30 ng/mL Sufficiency 30-100 ng/mL Toxicity >100 ng/mL Interpretation and review of laboratory results Abnormal [facility] CHEMISTRYOrdered By: SYSTEM SYSTEM on 10-06-2022 Anion gap [Moles/Vol] 11 mmol/L Normal 6 - 16 mEq/L [facility] Remisol Calcium [Mass/Vol] 9.2 mg/dL Normal 8.9 - 11.1 mg/dL [facility] Remisol Chloride [Moles/Vol] 100 mmol/L Low 101 - 111 mmol/ L [facility] Remisol CO2 [Moles/Vol] 28 mmol/L Normal 21 - 31 mmol/L [facility] Remisol Creatinine [Mass/Vol] 0.8 mg/dL Normal 0.5 - 1.3 mg/dL [facility] Remisol GFR/1.73 sq M.predicted among blacks MDRD (S/P/Bld) [Vol rate/Area] mL/min/1.73 m2 Normal >=59mL/min/1.73 m2 [facility] Chem S GFR/1.73 sq M.predicted among non-blacks MDRD (S/P/Bld) [Vol rate/Area] mL/min/1.73 m2 Normal >=59mL/min/1.73 m2 [facility] Chem S Glucose [Mass/Vol] 180 mg/dL Normal 55 - 199 mg/dL [facility] Remisol Magnesium [Mass/Vol] 2.4 mg/dL Normal 1.3 - 2.4 mg/dL [facility] Remisol Potassium [Moles/Vol] 4.2 mmol/L Normal 3.5 - 5.3 mmol/L [facility] Remisol Sodium [Moles/Vol] 135 mmol/L Normal 135 - 145 mmol/L [facility] Remisol Urea nitrogen [Mass/Vol] 12 mg/dL Normal 5 - 21 mg/dL [facility] Remisol Urea nitrogen/Creatinine [Mass ratio] 15 mg/mg Normal 10 - 20 [facility] Remisol CHEMISTRYOrdered By: SYSTEM SYSTEM on 09-29-2022 Magnesium [Mass/Vol] 2.8 mg/dL High 1.3 - 2.4 mg/dL [facility] Remisol Glucose Glucometer (BldC) [M ass/Vol]Ordered By: José Sanchez on 09-14-2022 Glucose [Mass/Vol] 248 mg/dL [facility] Comment on above: Random Glucose Refer ence Range is dependent on time and content of last meal. Glucose of more than 200 mg/dL in a nonstressed, ambulatory subject supports the diagnosis of Diabetes Mellitus. Glucose Poct Glucometerson 0 09-14-2022 Glucose [Mass/Vol] 248 mg/dL Normal [facility] Comment on above: Result Comment: [facility] Glucose Reference Range is dependent on time and content of last meal. Glucose of more than 200 mg/dL in a nonstressed, ambulatory subject supports the diagnosis of Diabetes Mellitus. PERFORMED BY: [facility] [address] [place] [address] PATHOLOGIST SURVIVAL SPECIALIST EZRA MCCLAIN M.D. Performed By: #### G LULS #### Point of Care testing , Glucose [Mass/Vol] 253 mg/dL Normal [facility] Comment on above: Result Comment: [facility] Glucose Reference Range is dependent on time and content of last meal. Glucose of more than 200 mg/dL in a nonstressed, ambulatory subject supports the diagnosis of Diabetes Mellitus. PERFORMED BY: [facility] [address] [place] [address] PATHOLOGIST SURVIVAL SPECIALIST EZRA MCCLAIN M.D. Performed By: #### G LUGI #### Point of Care testing , Alanine aminotransferase [En zymatic activity/volume] in Serum or PlasmaOrdered By: Obaydah Daromar on 09-13-2022 ALT [Catalytic activity/Vol] 59 U/L 7-52 [facility] Albumin [Mass/volume] in Ser um or Plasma by Bromocresol green (BCG) dye binding methoOrdered By: Obaydah Daromar on 09-13-2022 Albumin BCG dye [Mass/Vol] 4.6 g/dL 3.5-5.7 [facility] Alkaline phosphatase [Enzyma tic activity/volume] in Serum or PlasmaOrdered By: Obaydah Daromar on 09-13-2022 ALP [Catalytic activity/Vol] 103 U/L 34-104 [facility] Aspartate aminotransferase [ Enzymatic activity/volume] in Serum or PlasmaOrdered By: Obaydah Daromar on 09-13-2022 AST [Catalytic activity/Vol] 80 U/L 13-39 [facility] Basophils Auto (Bld) [#/Vol] Ordered By: Obaydah Daromar on 09-13-2022 Basophils (Bld) [#/Vol] 0.0 10*3/uL 0.0-0.2 [facility] Basophils/100 WBC Auto (Bld) Ordered By: Marilyn Sun on 09-13-2022 Basophils/100 WBC (Bld) 0.2 % . [facility] Bilirubin.total [Mass/volume ] in Serum or PlasmaOrdered By: Obsruthidacuca Mejiaomar on 09-13-2022 Bilirubin [Mass/Vol] 0.4 mg/dL 0.3-1.0 [facility] Calcium [Mass/volume] in Ser um or PlasmaOrdered By: Obsruthidacuca Mejiaomar on 09-13-2022 Calcium [Mass/Vol] 9.1 mg/dL 8.6-10.3 [facility] Carbon dioxide, total [Moles /volume] in Serum or PlasmaOrdered By: Obartur Mejiaomar on 09-13-2022 CO2 [Moles/Vol] 29.3 mmol/L 21.0-31.0 [facility] Chloride [Moles/volume] in S caitlyn or PlasmaOrdered By: Obartur Mejiaomar on 09-13-2022 Chloride [Moles/Vol] 96 mmol/L 98-107 [facility] Complete Blood Count Auto Di ffon 09-13-2022 Basophils (Bld) [#/Vol] 0.0 10*3/uL Normal 0.0-0.2 [facility] Comment on above: Result Comment: PERF ORMED BY: [facility] [address] [place] [address] PATHOLOGIST SURVIVAL SPECIALIST EZRA MCCLAIN M.D. Performed By: #### G LULS #### Point of Care testing , Basophils/100 WBC (Bld) 0.2 % Normal . [facility] Comment on above: Performed By: #### G LULS #### Point of Care testing , Eosinophils (Bld) [#/Vol] 0.0 10*3/uL Normal 0.0-0.45 [facility] Comment on above: Performed By: #### G LULS #### Point of Care testing , Eosinophils/100 WBC (Bld) 0.0 % Normal . [facility] Comment on above: Performed By: #### G ROSALIELS #### Point of Care testing , Erythrocyte distribution width (RBC) [Ratio] 18.2 % High 11.9-15.3 [facility] Comment on above: Performed By: #### G ROSALIELS #### Point of Care testing , Hematocrit (Bld) [Volume fraction] 38.3 % Normal 34.0-46.4 [facility] Comment on above: Performed By: #### G ROSALIELS #### Point of Care testing , Hemoglobin (Bld) [Mass/Vol] 12.7 g/dL Normal 11.8-15.4 [facility] Comment on above: Performed By: #### G ROSALIELS #### Point of Care testing , Lymphocytes (Bld) [#/Vol] 0.5 10*3/uL Low 1.00-4.8 [facility] Comment on above: Performed By: #### G ROSALIELS #### Point of Care testing , Lymphocytes/100 WBC (Bld) 6.4 % Normal . [facility] Comment on above: Performed By: #### G ROSALIELS #### Point of Care testing , MCH (RBC) [Entitic mass] 31.7 pg Normal 24.7-34.3 [facility] Comment on above: Performed By: #### G ROSALIELS #### Point of Care testing , MCV (RBC) [Entitic vol] 95.9 fL Normal 80-100 [facility] Comment on above: Performed By: #### G ROSALIELS #### Point of Care testing , Mean Corpuscular HGB Conc 33.1 g/dL Normal 32.0-35.0 [facility] Comment on above: Performed By: #### G ROSALIELS #### Point of Care testing , Monocytes (Bld) [#/Vol] 0.3 10*3/uL Normal 0.0-0.8 [facility] Comment on above: Performed By: #### G ROSALIELS #### Point of Care testing , Monocytes/100 WBC (Bld) 3.8 % Normal . [facility] Comment on above: Performed By: #### G ROSALIELS #### Point of Care testing , Neutrophils (Bld) [#/Vol] 6.8 10*3/uL Normal 1.8-7.7 [facility] Comment on above: Performed By: #### Loly PRUETT #### Point of Care testing , Neutrophils/100 WBC (Bld) 89.6 % Normal . [facility] Comment on above: Performed By: #### Loly PRUETT #### Point of Care testing , NRBC% 0.0 /100{WBC} Normal 0-0.5 [facility] Comment on above: Performed By: #### Loly PRUETT #### Point of Care testing , Platelet mean volume (Bld) [Entitic vol] 7.5 fL Normal 6.3-10.7 [facility] Comment on above: Performed By: #### Loly PRUETT #### Point of Care testing , Platelets (Bld) [#/Vol] 201 10*3/uL Normal 150-450 [facility] Comment on above: Performed By: #### Loly PRUETT #### Point of Care testing , RBC (Bld) [#/Vol] 4.00 10*6/uL Normal 3.60-5.00 [facility] Comment on above: Performed By: #### Loly PRUETT #### Point of Care testing , WBC (Bld) [#/Vol] 7.6 10*3/uL Normal 3.8-11.6 [facility] Comment on above: Performed By: #### Loly PRUETT #### Point of Care testing , Comprehensive Metabolic Pane usman 09-13-2022 Albumin [Mass/Vol] 4.6 g/dL Normal 3.5-5.7 [facility] Comment on above: Performed By: ###Kailey PRUETT #### Point of Care testing , Albumin/Globulin [Mass ratio] 1.7 {ratio} Normal [facility] Comment on above: Performed By: #### Loly PRUETT #### Point of Care testing , ALP [Catalytic activity/Vol] 103 U/L Normal 34-104 [facility] Comment on above: Performed By: #### G LULS #### Point of Care testing , ALT [Catalytic activity/Vol] 59 U/L High 7-52 [facility] Comment on above: Performed By: #### G ROSALIELS #### Point of Care testing , Anion gap [Moles/Vol] Not performed Normal 6.0-15.0 [facility] Comment on above: Performed By: #### G ROSALIELS #### Point of Care testing , AST [Catalytic activity/Vol] 80 U/L High 13-39 [facility] Comment on above: Performed By: #### G ROSALIELS #### Point of Care testing , Bilirubin [Mass/Vol] 0.4 mg/dL Normal 0.3-1.0 [facility] Comment on above: Performed By: #### G ROSALIELS #### Point of Care testing , Calcium [Mass/Vol] 9.1 mg/dL Normal 8.6-10.3 [facility] Comment on above: Performed By: #### G ROSALIELS #### Point of Care testing , Chloride [Moles/Vol] 96 mmol/L Low 98-107 [facility] Comment on above: Performed By: #### G ROSALIELS #### Point of Care testing , CO2 [Moles/Vol] 29.3 mmol/L Normal 21.0-31.0 [facility] Comment on above: Performed By: #### G ROSALIELS #### Point of Care testing , Creatinine [Mass/Vol] 0.85 mg/dL Normal 0.60-1.20 [facility] Comment on above: Performed By: #### G ROSALIELS #### Point of Care testing , Creatinine Clr Calc Pharmacy 104.67 [facility] Comment on above: Result Comment: PERF ORMED BY: [facility] [address] [place] [address] PATHOLOGIST SURVIVAL SPECIALIST EZRA MCCLAIN M.D. Performed By: #### G ROSALIELS #### Point of Care testing , GFR/1.73 sq M.predicted MDRD (S/P/Bld) [Vol rate/Area] mL/min/{1.73_m2} [facility] Comment on above: Performed By: #### G LULS #### Point of Care testing , Globulin (S) [Mass/Vol] 2.7 g/dL Normal [facility] Comment on above: Performed By: #### G LULS #### Point of Care testing , Glucose [Mass/Vol] 284 mg/dL High 74-109 [facility] Comment on above: Result Comment: [place] Glucose Reference Range is dependent on time and content of last meal. Glucose of more than 200 mg/dL in a nonstressed, ambulatory subject supports the diagnosis of Diabetes Mellitus. ADA recommended reference range Performed By: #### G LULS #### Point of Care testing , Potassium Normal 3.5-5.1 [facility] Comment on above: Result Comment: Spec imen hemolyzed, redraw requested Performed By: #### G LULS #### Point of Care testing , Protein [Mass/Vol] 7.3 g/dL Normal 6.4-8.9 [facility] Comment on above: Performed By: #### G LULS #### Point of Care testing , Sodium [Moles/Vol] 134 mmol/L Low 136-145 [facility] Comment on above: Performed By: #### G LULS #### Point of Care testing , Urea nitrogen [Mass/Vol] 37 mg/dL High 7-25 [facility] Comment on above: Performed By: #### G LULS #### Point of Care testing , Creatinine [Mass/volume] in Serum or PlasmaOrdered By: Marilyn Sun on 09-13-2022 Creatinine [Mass/Vol] 0.85 mg/dL 0.60-1.20 [facility] Eosinophils Auto (Bld) [#/Vo l]Ordered By: Marilyn Sun on 09-13-2022 Eosinophils (Bld) [#/Vol] 0.0 10*3/uL 0.0-0.45 [facility] Eosinophils/100 WBC Auto (Bl d)Ordered By: Marilyn Sun on 09-13-2022 Eosinophils/100 WBC (Bld) 0.0 % . [facility] Erythrocyte distribution wid th Auto (RBC) [Ratio]Ordered By: Obaydah Daromar on 09-13-2022 Erythrocyte distribution width (RBC) [Ratio] 18.2 % 11.9-15.3 [facility] Globulin Calc (S) [Mass/Vol] Ordered By: Obaydah Daromar on 09-13-2022 Globulin (S) [Mass/Vol] 2.7 g/dL [facility] Glucose Poct Glucometerson 0 09-13-2022 Commemt1 Glu2: Cleaned Meter Normal [facility] Comment on above: Result Comment: PERF ORMED BY: [place] [address] PATHOLOGIST SURVIVAL SPECIALIST EZRA MCCLAIN M.D. Performed By: #### G LULS #### Point of Care testing , Glucose [Mass/Vol] 375 mg/dL Normal [facility] Comment on above: Result Comment: [facility] Glucose Reference Range is dependent on time and content of last meal. Glucose of more than 200 mg/dL in a nonstressed, ambulatory subject supports the diagnosis of Diabetes Mellitus. Performed By: #### G LULS #### Point of Care testing , Glucose [Mass/Vol] 360 mg/dL Normal [facility] Comment on above: Result Comment: [facility] Glucose Reference Range is dependent on time and content of last meal. Glucose of more than 200 mg/dL in a nonstressed, ambulatory subject supports the diagnosis of Diabetes Mellitus. PERFORMED BY: [place] [address] PATHOLOGIST SURVIVAL SPECIALIST EZRA MCCLAIN M.D. Performed By: #### C MP, CBC #### [address] Glucose [Mass/Vol] 348 mg/dL Normal [facility] Comment on above: Result Comment: [facility] Glucose Reference Range is dependent on time and content of last meal. Glucose of more than 200 mg/dL in a nonstressed, ambulatory subject supports the diagnosis of Diabetes Mellitus. PERFORMED BY: [place] [phone] PATHOLOGIST SURVIVAL SPECIALIST EZRA MCCLAIN M.D. Performed By: #### G LULS #### Point of Care testing , Commemt1 Glu2: Cleaned Meter Normal [facility] Comment on above: Result Comment: PERF ORMED BY: [facility] [address] [place] [address] PATHOLOGIST SURVIVAL SPECIALIST EZRA MCCLAIN M.D. Performed By: #### G LULS #### Point of Care testing , Glucose [Mass/Vol] 261 mg/dL Normal [facility] Comment on above: Result Comment: [place] Glucose Reference Range is dependent on time and content of last meal. Glucose of more than 200 mg/dL in a nonstressed, ambulatory subject supports the diagnosis of Diabetes Mellitus. Performed By: #### G LULS #### Point of Care testing , Glucose [Mass/volume] in Ser um or PlasmaOrdered By: Marilyn Sun on 09-13-2022 Glucose [Mass/Vol] 284 mg/dL 74-109 [facility] Comment on above: ADA recommended refe rence rangeRandom Glucose Reference Range is dependent on time and content of last meal. Glucose of more than 200 mg/dL in a nonstressed, ambulatory subject supports the diagnosis of Diabetes Mellitus. Hematocrit Auto (Bld) [Volum e fraction]Ordered By: Marilyn Sun on 09-13-2022 Hematocrit (Bld) [Volume fraction] 38.3 % 34.0-46.4 [facility] Hemoglobin [Mass/volume] in BloodOrdered By: Marilyn Sun on 09-13-2022 Hemoglobin (Bld) [Mass/Vol] 12.7 g/dL 11.8-15.4 [facility] Laboratory - Chemistry and C hemistry - challengeOrdered By: Marilyn Sun on 09-13-2022 GFR/1.73 sq M.predicted MDRD (S/P/Bld) [Vol rate/Area] mL/min/{1.73_m2} [facility] Leukocytes [#/volume] correc jeffrey for nucleated erythrocytes in Blood by Automated counOrdered By: Marilyn Mejiaomar on 09-13-2022 WBC corrected for nucl RBC Auto (Bld) [#/Vol] 7.6 10*3/uL 3.8-11.6 [facility] Lymphocytes Auto (Bld) [#/Vo l]Ordered By: Obsruthidacuca Mejiaomar on 09-13-2022 Lymphocytes (Bld) [#/Vol] 0.5 10*3/uL 1.00-4.8 [facility] Lymphocytes/100 WBC Auto (Bl d)Ordered By: Obsruthidacuca Mejiaomar on 09-13-2022 Lymphocytes/100 WBC (Bld) 6.4 % . [facility] MCH Auto (RBC) [Entitic mass ]Ordered By: Obartur Mejiaomar on 09-13-2022 MCH (RBC) [Entitic mass] 31.7 pg 24.7-34.3 [facility] MCHC Auto (RBC) [Mass/Vol]Or dered By: Obsruthidacuca Mejiaomar on 09-13-2022 MCHC (RBC) [Mass/Vol] 33.1 g/dL 32.0-35.0 [facility] MCV Auto (RBC) [Entitic vol] Ordered By: Obsruthidacuca Mejiaomar on 09-13-2022 MCV (RBC) [Entitic vol] 95.9 fL 80-100 [facility] Monocytes Auto (Bld) [#/Vol] Ordered By: Obsruthidacuca Mejiaomar on 09-13-2022 Monocytes (Bld) [#/Vol] 0.3 10*3/uL 0.0-0.8 [facility] Monocytes/100 WBC Auto (Bld) Ordered By: Obsruthidacuca Mejiaomar on 09-13-2022 Monocytes/100 WBC (Bld) 3.8 % . [facility] Neutrophils Auto (Bld) [#/Vo l]Ordered By: Obartur Mejiaomar on 09-13-2022 Neutrophils (Bld) [#/Vol] 6.8 10*3/uL 1.8-7.7 [facility] Neutrophils/100 WBC Auto (Bl d)Ordered By: Obsruthidacuca Mejiaomar on 09-13-2022 Neutrophils/100 WBC (Bld) 89.6 % . [facility] No Panel InformationOrdered By: José Sanchez on 09-13-2022 Bedside Glucose Comment Glu2: cleaned meter [facility] No Panel InformationOrdered By: Marilyn Sun on 09-13-2022 Pharmacy Creatinine Clearance (Chem 104.67 [facility] Nucleated erythrocytes [Pres ence] in Blood by Automated countOrdered By: Marilyn Sun on 09-13-2022 Nucleated RBC Auto Ql (Bld) 0.0 /100{WBC} 0-0.5 [facility] Platelet mean volume Auto (B ld) [Entitic vol]Ordered By: Marilyn Riosr on 09-13-2022 Platelet mean volume (Bld) [Entitic vol] 7.5 fL 6.3-10.7 [facility] Platelets Auto (Bld) [#/Vol] Ordered By: Marilyn Mejiaomar on 09-13-2022 Platelets (Bld) [#/Vol] 201 10*3/uL 150-450 [facility] Potassium [Moles/volume] in Serum or PlasmaOrdered By: Marilyn Mejiaomar on 09-13-2022 Potassium [Moles/Vol] 4.5 mmol/L 3.5-5.1 [facility] Protein [Mass/volume] in Ser um or PlasmaOrdered By: Marilyn Mejiaomar on 09-13-2022 Protein [Mass/Vol] 7.3 g/dL 6.4-8.9 [facility] RBC Auto (Bld) [#/Vol]Ordere d By: Marilyn Mejiaomar on 09-13-2022 RBC (Bld) [#/Vol] 4.00 10*6/uL 3.60-5.00 [facility] Redraw Potassiumon Potassium [Moles/Vol] 4.5 mmol/L Normal 3.5-5.1 [facility] Comment on above: Order Comment: FIRST SPECMEN HEMOLYZED Result Comment: PERF ORMED BY: [facility] [address] [place], [place] [address] PATHOLOGIST SURVIVAL SPECIALIST EZRA MCCLAIN M.D. Performed By: #### G LULS #### Point of Care testing , Serum or plasma albumin/glob ulin mass ratioOrdered By: Marilyn Mejiaomar on 09-13-2022 Albumin/Globulin [Mass ratio] 1.7 {ratio} [facility] Serum or plasma anion gap de terminationOrdered By: Rockydacuca Mejiaomar on 09-13-2022 Anion gap [Moles/Vol] TNP [facility] Comment on above: Test not performed Sodium [Moles/volume] in Ser um or PlasmaOrdered By: Obsruthidacuca Daromar on 09-13-2022 Sodium [Moles/Vol] 134 mmol/L 136-145 [facility] Urea nitrogen [Mass/volume] in Serum or PlasmaOrdered By: Obsruthidacuca Mejiaomar on 09-13-2022 Urea nitrogen [Mass/Vol] 37 mg/dL 7-25 [facility] WBC Auto (Bld) [#/Vol]Ordere d By: Marilyn Mejiaomar on 09-13-2022 WBC (Bld) [#/Vol] 7.6 10*3/uL 3.8-11.6 [facility] Complete Blood Count Auto Di ffon 09-12-2022 Basophils (Bld) [#/Vol] 0.0 10*3/uL Normal 0.0-0.2 [facility] Comment on above: Result Comment: PERF ORMED BY: [place] [address] PATHOLOGIST SURVIVAL SPECIALIST EZRA MCCLAIN M.D. Performed By: #### H S TROP #### [facility] [address] [place] [address] [place] Basophils/100 WBC (Bld) 0.2 % Normal . [facility] Comment on above: Performed By: #### H S TROP #### [facility] [address] [place] [address] Eosinophils (Bld) [#/Vol] 0.0 10*3/uL Normal 0.0-0.45 [facility] Comment on above: Performed By: #### H S TROP #### [place] [address] [place] Eosinophils/100 WBC (Bld) 0.0 % Normal . [facility] Comment on above: Performed By: #### H S TROP #### [address] Erythrocyte distribution width (RBC) [Ratio] 17.5 % High 11.9-15.3 [facility] Comment on above: Performed By: #### H S TROP #### [address] Hematocrit (Bld) [Volume fraction] 36.3 % Normal 34.0-46.4 [facility] Comment on above: Performed By: #### H S TROP #### [address] Hemoglobin (Bld) [Mass/Vol] 12.0 g/dL Normal 11.8-15.4 [facility] Comment on above: Performed By: #### H S TROP #### [address] Lymphocytes (Bld) [#/Vol] 0.3 10*3/uL Low 1.00-4.8 [facility] Comment on above: Performed By: #### H S TROP #### [address] Lymphocytes/100 WBC (Bld) 4.1 % Normal . [facility] Comment on above: Performed By: #### H S TROP #### [address] MCH (RBC) [Entitic mass] 31.7 pg Normal 24.7-34.3 [facility] Comment on above: Performed By: #### H S TROP #### [address] MCV (RBC) [Entitic vol] 95.9 fL Normal 80-100 [facility] Comment on above: Performed By: #### H S TROP #### [facility] [address] Mean Corpuscular HGB Conc 33.1 g/dL Normal 32.0-35.0 [facility] Comment on above: Performed By: #### H S TROP #### [address] Monocytes (Bld) [#/Vol] 0.3 10*3/uL Normal 0.0-0.8 [facility] Comment on above: Performed By: #### H S TROP #### [address] Monocytes/100 WBC (Bld) 3.8 % Normal . [facility] Comment on above: Performed By: #### H S TROP #### [address] Neutrophils (Bld) [#/Vol] 6.3 10*3/uL Normal 1.8-7.7 [facility] Comment on above: Performed By: #### H S TROP #### [address] Neutrophils/100 WBC (Bld) 91.9 % Normal . [facility] Comment on above: Performed By: #### H S TROP #### [address] NRBC% 0.0 /100{WBC} Normal 0-0.5 [facility] Comment on above: Performed By: #### H S TROP #### [address] Platelet mean volume (Bld) [Entitic vol] 7.5 fL Normal 6.3-10.7 [facility] Comment on above: Performed By: #### H S TROP #### [place] [address] [place] Platelets (Bld) [#/Vol] 177 10*3/uL Normal 150-450 [facility] Comment on above: Performed By: #### H S TROP #### [place] [address] [place] RBC (Bld) [#/Vol] 3.79 10*6/uL Normal 3.60-5.00 [facility] Comment on above: Performed By: #### H S TROP #### [address] WBC (Bld) [#/Vol] 6.8 10*3/uL Normal 3.8-11.6 [facility] Comment on above: Performed By: #### H S TROP #### [address] Comprehensive Metabolic Pane usman 09-12-2022 Albumin [Mass/Vol] 4.1 g/dL Normal 3.5-5.7 [facility] Comment on above: Performed By: #### H S TROP #### [address] Albumin/Globulin [Mass ratio] 1.6 {ratio} Normal [facility] Comment on above: Performed By: #### H S TROP #### [address] ALP [Catalytic activity/Vol] 101 U/L Normal 34-104 [facility] Comment on above: Performed By: #### H S TROP #### [address] ALT [Catalytic activity/Vol] 45 U/L Normal 7-52 [facility] Comment on above: Performed By: #### H S TROP #### [address] Anion gap [Moles/Vol] 12.8 mmol/L Normal 6.0-15.0 [facility] Comment on above: Performed By: #### H S TROP #### [address] AST [Catalytic activity/Vol] 55 U/L High 13-39 [facility] Comment on above: Performed By: #### H S TROP #### [address] Bilirubin [Mass/Vol] 0.4 mg/dL Normal 0.3-1.0 [facility] Comment on above: Performed By: #### H S TROP #### [facility] [address] [place] [address] Calcium [Mass/Vol] 8.8 mg/dL Normal 8.6-10.3 [facility] Comment on above: Performed By: #### H S TROP #### [facility] [address] Chloride [Moles/Vol] 96 mmol/L Low 98-107 [facility] Comment on above: Performed By: #### H S TROP #### [address] CO2 [Moles/Vol] 28.8 mmol/L Normal 21.0-31.0 [facility] Comment on above: Performed By: #### H S TROP #### [address] Creatinine [Mass/Vol] 0.90 mg/dL Normal 0.60-1.20 [facility] Comment on above: Performed By: #### H S TROP #### [place] [address] [place] Creatinine Clr Calc Pharmacy 100.98 [facility] Comment on above: Result Comment: PERF ORMED BY: [place] [address] PATHOLOGIST SURVIVAL SPECIALIST EZRA MCCLAIN M.D. Performed By: #### H S TROP #### [address] GFR/1.73 sq M.predicted MDRD (S/P/Bld) [Vol rate/Area] mL/min/{1.73_m2} [facility] Comment on above: Performed By: #### H S TROP #### [place] [address] [place] Globulin (S) [Mass/Vol] 2.5 g/dL [facility] Comment on above: Performed By: #### H S TROP #### [place] [id number] [place] Glucose [Mass/Vol] 289 mg/dL High 74-109 [facility] Comment on above: Result Comment: [place] om Glucose Reference Range is dependent on time and content of last meal. Glucose of more than 200 mg/dL in a nonstressed, ambulatory subject supports the diagnosis of Diabetes Mellitus. ADA recommended reference range Performed By: #### H S TROP #### [facility] [address] [place] [address] [place] Potassium [Moles/Vol] 4.6 mmol/L Normal 3.5-5.1 [facility] Comment on above: Performed By: #### H S TROP #### [facility] [address] Protein [Mass/Vol] 6.6 g/dL Normal 6.4-8.9 [facility] Comment on above: Performed By: #### H S TROP #### [facility] [address] Sodium [Moles/Vol] 133 mmol/L Low 136-145 [facility] Comment on above: Performed By: #### H S TROP #### [facility] [address] Urea nitrogen [Mass/Vol] 29 mg/dL High 7-25 [facility] Comment on above: Performed By: #### H S TROP #### [facility] [address] Glucose Poct Glucometerson 0 09-12-2022 Commemt1 Glu2: Cleaned Meter Normal [facility] Comment on above: Result Comment: PERF ORMED BY: [facility] [address] [place] [address] PATHOLOGIST SURVIVAL SPECIALIST EZRA MCCLAIN M.D. Performed By: #### C MP, CBC #### [facility] [place] [facility] [address] [place] [address] [place] Glucose [Mass/Vol] 203 mg/dL Normal [facility] Comment on above: Result Comment: [place] om Glucose Reference Range is dependent on time and content of last meal. Glucose of more than 200 mg/dL in a nonstressed, ambulatory subject supports the diagnosis of Diabetes Mellitus. Performed By: #### C MP, CBC #### [address] Commemt1 Glu2: Cleaned Meter [facility] Comment on above: Result Comment: PERF ORMED BY: [place] [address] PATHOLOGIST SURVIVAL SPECIALIST EZRA MCCLAIN M.D. Performed By: #### G LULS #### Point of Care testing , Glucose [Mass/Vol] 331 mg/dL Normal [facility] Comment on above: Result Comment: [place] om Glucose Reference Range is dependent on time and content of last meal. Glucose of more than 200 mg/dL in a nonstressed, ambulatory subject supports the diagnosis of Diabetes Mellitus. Performed By: #### G LULS #### Point of Care testing , Commemt1 Glu2: Cleaned Meter [facility] Comment on above: Result Comment: PERF ORMED BY: [place] [address] PATHOLOGIST SURVIVAL SPECIALIST EZRA MCCLAIN M.D. Performed By: #### C MP, CBC #### [address] Glucose [Mass/Vol] 282 mg/dL Normal [facility] Comment on above: Result Comment: [place] om Glucose Reference Range is dependent on time and content of last meal. Glucose of more than 200 mg/dL in a nonstressed, ambulatory subject supports the diagnosis of Diabetes Mellitus. Performed By: #### C MP, CBC #### [address] Commemt1 Glu2: Cleaned Meter [facility] Comment on above: Result Comment: PERF ORMED BY: [place] [address] PATHOLOGIST SURVIVAL SPECIALIST EZRA MCCLAIN M.D. Performed By: #### C MP, CBC #### [address] Glucose [Mass/Vol] 219 mg/dL Normal [facility] Comment on above: Result Comment: [facility] Glucose Reference Range is dependent on time and content of last meal. Glucose of more than 200 mg/dL in a nonstressed, ambulatory subject supports the diagnosis of Diabetes Mellitus. Performed By: #### C MP, CBC #### [facility] [place] [facility] [address] Complete Blood Count Auto Di ffon 09-11-2022 Basophils (Bld) [#/Vol] 0.1 10*3/uL Normal 0.0-0.2 [facility] Comment on above: Result Comment: PERF ORMED BY: [place] [address] PATHOLOGIST SURVIVAL SPECIALIST EZRA MCCLAIN M.D. Performed By: #### C MP, CBC #### [address] Basophils/100 WBC (Bld) 1.1 % Normal . [facility] Comment on above: Performed By: #### C MP, CBC #### [address] Eosinophils (Bld) [#/Vol] 0.0 10*3/uL Normal 0.0-0.45 [facility] Comment on above: Performed By: #### C MP, CBC #### [address] Eosinophils/100 WBC (Bld) 0.0 % Normal . [facility] Comment on above: Performed By: #### C MP, CBC #### [facility] [address] Erythrocyte distribution width (RBC) [Ratio] 17.5 % High 11.9-15.3 [facility] Comment on above: Performed By: #### C MP, CBC #### [facility] [address] Hematocrit (Bld) [Volume fraction] 38.9 % Normal 34.0-46.4 [facility] Comment on above: Performed By: #### C MP, CBC #### [facility] [address] Hemoglobin (Bld) [Mass/Vol] 12.7 g/dL Normal 11.8-15.4 [facility] Comment on above: Performed By: #### C MP, CBC #### [facility] [address] Lymphocytes (Bld) [#/Vol] 0.3 10*3/uL Low 1.00-4.8 [facility] Comment on above: Performed By: #### C MP, CBC #### [facility] [address] Lymphocytes/100 WBC (Bld) 4.7 % Normal . [facility] Comment on above: Performed By: #### C MP, CBC #### [facility] [address] MCH (RBC) [Entitic mass] 31.7 pg Normal 24.7-34.3 [facility] Comment on above: Performed By: #### C MP, CBC #### [facility] [address] MCV (RBC) [Entitic vol] 96.7 fL Normal 80-100 [facility] Comment on above: Performed By: #### C MP, CBC #### [facility] [address] Mean Corpuscular HGB Conc 32.8 g/dL Normal 32.0-35.0 [facility] Comment on above: Performed By: #### C MP, CBC #### [facility] [address] [place] [address] [place] Monocytes (Bld) [#/Vol] 0.1 10*3/uL Normal 0.0-0.8 [facility] Comment on above: Performed By: #### C MP, CBC #### [facility] [address] [place] [address] [place] Monocytes/100 WBC (Bld) 0.9 % Normal . [facility] Comment on above: Performed By: #### C MP, CBC #### [facility] [address] [place] [address] [place] Neutrophils (Bld) [#/Vol] 6.0 10*3/uL Normal 1.8-7.7 [facility] Comment on above: Performed By: #### C MP, CBC #### [facility] [address] Neutrophils/100 WBC (Bld) 93.3 % Normal . [facility] Comment on above: Performed By: #### C MP, CBC #### [facility] [address] NRBC% 0.2 /100{WBC} Normal 0-0.5 [facility] Comment on above: Performed By: #### C MP, CBC #### [facility] [address] Platelet mean volume (Bld) [Entitic vol] 7.5 fL Normal 6.3-10.7 [facility] Comment on above: Performed By: #### C MP, CBC #### [facility] [address] [place] [address] [place] Platelets (Bld) [#/Vol] 185 10*3/uL Normal 150-450 [facility] Comment on above: Performed By: #### C MP, CBC #### [facility] [address] RBC (Bld) [#/Vol] 4.02 10*6/uL Normal 3.60-5.00 [facility] Comment on above: Performed By: #### C MP, CBC #### [facility] [address] [place] [address] [place] WBC (Bld) [#/Vol] 6.4 10*3/uL Normal 3.8-11.6 [facility] Comment on above: Performed By: #### C MP, CBC #### [facility] [address] Comprehensive Metabolic Pane usman 09-11-2022 Albumin [Mass/Vol] 4.5 g/dL Normal 3.5-5.7 [facility] Comment on above: Performed By: #### C MP, CBC #### [facility] [address] [place] [address] Albumin/Globulin [Mass ratio] 1.5 {ratio} Normal [facility] Comment on above: Performed By: #### C MP, CBC #### [address] ALP [Catalytic activity/Vol] 130 U/L High 34-104 [facility] Comment on above: Performed By: #### C MP, CBC #### [address] ALT [Catalytic activity/Vol] 59 U/L High 7-52 [facility] Comment on above: Performed By: #### C MP, CBC #### [address] Anion gap [Moles/Vol] Not performed Normal 6.0-15.0 [facility] Comment on above: Performed By: #### C MP, CBC #### [facility] [address] [place] [address] AST [Catalytic activity/Vol] 90 U/L High 13-39 [facility] Comment on above: Performed By: #### C MP, CBC #### [address] Bilirubin [Mass/Vol] 0.5 mg/dL Normal 0.3-1.0 [facility] Comment on above: Performed By: #### C MP, CBC #### [facility] [address] [place] [address] Calcium [Mass/Vol] 9.3 mg/dL Normal 8.6-10.3 [facility] Comment on above: Performed By: #### C MP, CBC #### [facility] [address] [place] [address] Chloride [Moles/Vol] 94 mmol/L Low 98-107 [facility] Comment on above: Performed By: #### C MP, CBC #### [facility] [address] [place] [address] [place] CO2 [Moles/Vol] 28.7 mmol/L Normal 21.0-31.0 [facility] Comment on above: Performed By: #### C MP, CBC #### [facility] [address] Creatinine [Mass/Vol] 0.87 mg/dL Normal 0.60-1.20 [facility] Comment on above: Performed By: #### C MP, CBC #### [facility] [address] Creatinine Clr Calc Pharmacy 104.46 Normal [facility] Comment on above: Result Comment: PERF ORMED BY: [place] [address] PATHOLOGIST SURVIVAL SPECIALIST EZRA MCCLAIN M.D. Performed By: #### C MP, CBC #### [address] GFR/1.73 sq M.predicted MDRD (S/P/Bld) [Vol rate/Area] mL/min/{1.73_m2} [facility] Comment on above: Performed By: #### C MP, CBC #### [facility] [address] Globulin (S) [Mass/Vol] 3.0 g/dL [facility] Comment on above: Performed By: #### C MP, CBC #### [address] Glucose [Mass/Vol] 222 mg/dL Significant change up 74-109 [facility] Comment on above: Result Comment: [facility] Glucose Reference Range is dependent on time and content of last meal. Glucose of more than 200 mg/dL in a nonstressed, ambulatory subject supports the diagnosis of Diabetes Mellitus. ADA recommended reference range Performed By: #### C MP, CBC #### [facility] [address] Potassium Normal 3.5-5.1 [facility] Comment on above: Result Comment: Spec imen hemolyzed, redraw requested Performed By: #### C MP, CBC #### [facility] [address] Protein [Mass/Vol] 7.5 g/dL Normal 6.4-8.9 [facility] Comment on above: Performed By: #### C MP, CBC #### [facility] [address] Sodium [Moles/Vol] 135 mmol/L Low 136-145 [facility] Comment on above: Performed By: #### C MP, CBC #### [facility] [address] Urea nitrogen [Mass/Vol] 28 mg/dL High 7-25 [facility] Comment on above: Performed By: #### C MP, CBC #### [address] ECH echo transthoracicon ECH echo transthoracic [facility] Main [place] [address] [place] [address] Echocardiogram Signed Patient: Carmen Bledsoe MR#: [id number] 9 : 1960 Acct:[id number] Age/Sex: 61 / F ADM Date: 09/10/22 Loc: Room: [address] [place] [address] Type: ADM IN Attending Dr: Marilyn Sun MD Ordering Provider: Marilyn uSn MD Date of Service: 09/10/2204/25/1327 ECH/ECH echo transthoracic: Chest Pain/CHF Copies to: MD [...] LV V1 VTI: 23.8 cm Transcribed By: ROWAN Performed At: 09/11/22 0727 Signed By: Maikol Siddiqui MD 09/11/22 1155 [facility] Glucose Poct Glucometerson 0 09-11-2022 Commemt1 Glu2: Cleaned Meter [facility] Comment on above: Result Comment: PERF ORMED BY: [place] [address] PATHOLOGIST SURVIVAL SPECIALIST EZRA MCCLAIN M.D. Performed By: #### C MP, CBC #### [facility] [address] [place] [address] [place] Glucose [Mass/Vol] 236 mg/dL Normal [facility] Comment on above: Result Comment: [place] Glucose Reference Range is dependent on time and content of last meal. Glucose of more than 200 mg/dL in a nonstressed, ambulatory subject supports the diagnosis of Diabetes Mellitus. Performed By: #### C MP, CBC #### [facility] [address] [place] [address] [place] Glucose [Mass/Vol] 289 mg/dL Normal [facility] Comment on above: Result Comment: [place] om Glucose Reference Range is dependent on time and content of last meal. Glucose of more than 200 mg/dL in a nonstressed, ambulatory subject supports the diagnosis of Diabetes Mellitus. PERFORMED BY: [place] [address] PATHOLOGIST SURVIVAL SPECIALIST EZRA MCCLAIN M.D. Performed By: #### H S TROP #### [place] [address] [place] Glucose [Mass/Vol] 297 mg/dL Normal [facility] Comment on above: Result Comment: [place] om Glucose Reference Range is dependent on time and content of last meal. Glucose of more than 200 mg/dL in a nonstressed, ambulatory subject supports the diagnosis of Diabetes Mellitus. PERFORMED BY: [place] [address] PATHOLOGIST SURVIVAL SPECIALIST EZRA MCCLAIN M.D. Performed By: #### C MP, CBC #### [address] Glucose [Mass/Vol] 226 mg/dL Normal [facility] Comment on above: Result Comment: [place] Glucose Reference Range is dependent on time and content of last meal. Glucose of more than 200 mg/dL in a nonstressed, ambulatory subject supports the diagnosis of Diabetes Mellitus. PERFORMED BY: [place] [address] PATHOLOGIST SURVIVAL SPECIALIST EZRA MCCLAIN M.D. Performed By: #### G LULS #### Point of Care testing , Redraw Potassiumon 3 Potassium [Moles/Vol] 4.5 mmol/L Normal 3.5-5.1 [facility] Comment on above: Result Comment: PERF ORMED BY: [place] [address] PATHOLOGIST SURVIVAL SPECIALIST EZRA MCCLAIN M.D. Performed By: #### H S TROP #### [place] [address] [place] Troponin I High Sensitivityo n 09-11-2022 Troponin I High Sensitivity 5.3 pg/mL Normal 0.0-15.0 [facility] Comment on above: Result Comment: PERF ORMED BY: [place] [address] PATHOLOGIST SURVIVAL SPECIALIST EZRA MCCLAIN M.D. Performed By: #### C MP, CBC #### [place] [address] [place] A1C with Estimated Average G luon 09-10-2022 Glucose [Mass/Vol] 128 mg/dL Normal [facility] Comment on above: Order Comment: Comme nt add on Result Comment: PERF ORMED BY: [place] [address] PATHOLOGIST SURVIVAL SPECIALIST EZRA MCCLAIN M.D. Performed By: #### C MP, CBC #### [facility] [address] [place] [address] HbA1c (Bld) [Mass fraction] 6.1 % High 4.3-5.6 [facility] Comment on above: Order Comment: Comme nt add on Result Comment: Incr eased risk for diabetes: 5.7 - 6.4 diabetes: >6.4 glycemic control for adults with diabetes: <7.0 Performed By: #### C MP, CBC #### [facility] [address] [place] [address] Activated partial thrombopla stin time (aPTT) in platelet poor plasma by coagulation aOrdered By: Joo Ramos on 09-10-2022 aPTT Coag (PPP) [Time] 31.2 s 25.1-36.5 [facility] Alanine aminotransferase [En zymatic activity/volume] in Serum or PlasmaOrdered By: Joo Ramos on 09-10-2022 ALT [Catalytic activity/Vol] 50 U/L 7-52 [facility] Albumin [Mass/volume] in Ser um or Plasma by Bromocresol green (BCG) dye binding methoOrdered By: Joo Ramos on 09-10-2022 Albumin BCG dye [Mass/Vol] 4.4 g/dL 3.5-5.7 [facility] Alkaline phosphatase [Enzyma tic activity/volume] in Serum or PlasmaOrdered By: Joo Ramos on 09-10-2022 ALP [Catalytic activity/Vol] 121 U/L 34-104 [facility] Aspartate aminotransferase [ Enzymatic activity/volume] in Serum or PlasmaOrdered By: Joo Ramos on 09-10-2022 AST [Catalytic activity/Vol] 71 U/L 13-39 [facility] B-Type Natriuretic Peptideon 09-10-2022 Natriuretic peptide B (Bld) [Mass/Vol] 6.0 pg/mL Normal 5-100 [facility] Comment on above: Result Comment: PERF ORMED BY: [place] [address] PATHOLOGIST SURVIVAL SPECIALIST EZRA MCCLAIN M.D. Performed By: #### C MP, CBC #### [facility] [address] Basic Metabolic Panelon 09-01 Anion gap [Moles/Vol] 13.7 mmol/L Normal 6.0-15.0 [facility] Comment on above: Performed By: #### C MP, CBC #### [facility] [address] Calcium [Mass/Vol] 9.6 mg/dL Normal 8.6-10.3 [facility] Comment on above: Performed By: #### C MP, CBC #### [facility] [address] Chloride [Moles/Vol] 99 mmol/L Normal 98-107 [facility] Comment on above: Performed By: #### C MP, CBC #### [facility] [address] CO2 [Moles/Vol] 29.0 mmol/L Normal 21.0-31.0 [facility] Comment on above: Performed By: #### C MP, CBC #### [facility] [address] [place] [address] Creatinine [Mass/Vol] 0.83 mg/dL Normal 0.60-1.20 [facility] Comment on above: Performed By: #### C MP, CBC #### [facility] [address] [place] [address] [place] Creatinine Clr Calc Pharmacy 109.50 Normal [facility] Comment on above: Result Comment: PERF ORMED BY: [place] [address] PATHOLOGIST SURVIVAL SPECIALIST EZRA MCCLAIN M.D. Performed By: #### C MP, CBC #### [facility] 1[address] [place] [address] [place] GFR/1.73 sq M.predicted MDRD (S/P/Bld) [Vol rate/Area] mL/min/{1.73_m2} Normal [facility] Comment on above: Performed By: #### C MP, CBC #### [address] Glucose [Mass/Vol] 91 mg/dL Normal 74-109 [facility] Comment on above: Result Comment: [facility] Glucose Reference Range is dependent on time and content of last meal. Glucose of more than 200 mg/dL in a nonstressed, ambulatory subject supports the diagnosis of Diabetes Mellitus. ADA recommended reference range Performed By: #### C MP, CBC #### [address] Potassium [Moles/Vol] 4.7 mmol/L Normal 3.5-5.1 [facility] Comment on above: Performed By: #### C MP, CBC #### [place] [address] [place] Sodium [Moles/Vol] 137 mmol/L Normal 136-145 [facility] Comment on above: Performed By: #### C MP, CBC #### [address] Urea nitrogen [Mass/Vol] 24 mg/dL Normal 7-25 [facility] Comment on above: Performed By: #### C MP, CBC #### [place] [address] [place] Basophils Auto (Bld) [#/Vol] Ordered By: Joo Ramos on 09-10-2022 Basophils (Bld) [#/Vol] 0.1 10*3/uL 0.0-0.2 [facility] Basophils/100 WBC Auto (Bld) Ordered By: Joo Ramos on 09-10-2022 Basophils/100 WBC (Bld) 1.1 % . [facility] Bilirubin Test strip Ql (U)O rdered By: Joo Ramos on 09-10-2022 Bilirubin Ql (U) Negative Negative [facility] Bilirubin.direct [Mass/volum e] in Serum or PlasmaOrdered By: Joo Ramos on 09-10-2022 Bilirubin.direct [Mass/Vol] 0.10 mg/dL 0.03-0.18 [facility] Bilirubin.total [Mass/volume ] in Serum or PlasmaOrdered By: Joo Ramos on 09-10-2022 Bilirubin [Mass/Vol] 0.4 mg/dL 0.3-1.0 [facility] BioFire Not Detectedon 09-10 BioFire Not Detected Not detected Normal Not Detecte F [facility] Comment on above: Result Comment: This is a duplicate RP2.1 COVID (PCR) result to be used for statistical tracking purpose only. PERFORMED BY: [place] [address] PATHOLOGIST SURVIVAL SPECIALIST EZRA MCCLAIN M.D. Performed By: #### C MP, CBC #### [address] COVID-19 Detected/Not Detect edOrdered By: Marilyn Sun on 09-10-2022 SARS-CoV-2 (COVID-19) RNA TERESO+non-probe Ql (Nph) Not detected Not Detecte [facility] Comment on above: This is a duplicate RP2.1 COVID (PCR) result to be used for statistical tracking purpose only. Calcium [Mass/volume] in Ser um or PlasmaOrdered By: Joo Ramos on 09-10-2022 Calcium [Mass/Vol] 9.6 mg/dL 8.6-10.3 [facility] Carbon dioxide, total [Moles /volume] in Serum or PlasmaOrdered By: Joo Ramos on 09-10-2022 CO2 [Moles/Vol] 29.0 mmol/L 21.0-31.0 [facility] Chloride [Moles/volume] in S caitlyn or PlasmaOrdered By: Joo Ramos on 09-10-2022 Chloride [Moles/Vol] 99 mmol/L 98-107 [facility] Cholesterol [Mass/volume] in Serum or PlasmaOrdered By: Marilyn Sun on 09-10-2022 Cholesterol [Mass/Vol] 169 mg/dL 140-200 [facility] Comment on above: Chol less than 200 m g/dl low riskChol 201-239 mg/dl borderline riskChol 240 mg/dl and greater high risk Cholesterol in LDL Calc [Mas s/Vol]Ordered By: Marilyn Sun on 09-10-2022 Cholesterol in LDL [Mass/Vol] 62 mg/dL 0-100 [facility] Comment on above: LDL ATP III CLASSIFI CATIONLDL less than 100 mg/dL OptimalLDL 100-129 mg/dL Near or above optimalLDL 130-159 mg/dL Borderline highLDL 160-189 mg/dL HighLDL greater than 189 mg/dL Very high Cholesterol in VLDL Calc [Ma ss/Vol]Ordered By: Marilyn Sun on 09-10-2022 Cholesterol in VLDL [Mass/Vol] 34 mg/dL [facility] Color Auto (U)Ordered By: Tod red Rachel on 09-10-2022 Color (U) Yellow Yellow [facility] Complete Blood Count Auto Di ffon 09-10-2022 Basophils (Bld) [#/Vol] 0.1 10*3/uL Normal 0.0-0.2 [facility] Comment on above: Result Comment: PERF ORMED BY: [place] [address] PATHOLOGIST SURVIVAL SPECIALIST EZRA MCCLAIN M.D. Performed By: #### C MP, CBC #### [facility] [address] [place] [address] [place] Basophils/100 WBC (Bld) 1.1 % Normal . [facility] Comment on above: Performed By: #### C MP, CBC #### [facility] [address] [place] [address] [place] Eosinophils (Bld) [#/Vol] 0.1 10*3/uL Normal 0.0-0.45 [facility] Comment on above: Performed By: #### C MP, CBC #### [facility] [address] [place] [address] [place] Eosinophils/100 WBC (Bld) 1.6 % Normal . [facility] Comment on above: Performed By: #### C MP, CBC #### [facility] [address] Erythrocyte distribution width (RBC) [Ratio] 17.5 % High 11.9-15.3 [facility] Comment on above: Performed By: #### C MP, CBC #### [facility] [address] Hematocrit (Bld) [Volume fraction] 37.7 % Normal 34.0-46.4 [facility] Comment on above: Performed By: #### C MP, CBC #### [facility] [address] Hemoglobin (Bld) [Mass/Vol] 12.5 g/dL Normal 11.8-15.4 [facility] Comment on above: Performed By: #### C MP, CBC #### [address] Lymphocytes (Bld) [#/Vol] 1.1 10*3/uL Normal 1.00-4.8 [facility] Comment on above: Performed By: #### C MP, CBC #### [place] [address] [place] Lymphocytes/100 WBC (Bld) 21.5 % Normal . [facility] Comment on above: Performed By: #### C MP, CBC #### [facility] [address] MCH (RBC) [Entitic mass] 31.8 pg Normal 24.7-34.3 [facility] Comment on above: Performed By: #### C MP, CBC #### [facility] [address] [place] [address] [place] MCV (RBC) [Entitic vol] 96.1 fL Normal 80-100 [facility] Comment on above: Performed By: #### C MP, CBC #### [address] Mean Corpuscular HGB Conc 33.1 g/dL Normal 32.0-35.0 [facility] Comment on above: Performed By: #### C MP, CBC #### [facility] [address] [place] [address] [place] Monocytes (Bld) [#/Vol] 0.3 10*3/uL Normal 0.0-0.8 [facility] Comment on above: Performed By: #### C MP, CBC #### [facility] [address] [place] [address] [place] Monocytes/100 WBC (Bld) 18.14 % Normal 0.00-20.00 [facility] Comment on above: Performed By: #### C MP, CBC #### [facility] [address] [place] [address] [place] Monocytes/100 WBC (Bld) 5.1 % Normal . [facility] Comment on above: Performed By: #### C MP, CBC #### [facility] [address] Neutrophils (Bld) [#/Vol] 3.7 10*3/uL Normal 1.8-7.7 [facility] Comment on above: Performed By: #### C MP, CBC #### [facility] [address] [place] [address] [place] Neutrophils/100 WBC (Bld) 70.7 % Normal . [facility] Comment on above: Performed By: #### C MP, CBC #### [facility] [address] [place] [address] [place] NRBC% 0.3 /100{WBC} Normal 0-0.5 [facility] Comment on above: Performed By: #### C MP, CBC #### [facility] [address] [place] [address] [place] Platelet mean volume (Bld) [Entitic vol] 7.2 fL Normal 6.3-10.7 [facility] Comment on above: Performed By: #### C MP, CBC #### [facility] [address] [place] [address] [place] Platelets (Bld) [#/Vol] 180 10*3/uL Normal 150-450 [facility] Comment on above: Performed By: #### C MP, CBC #### [facility] [address] RBC (Bld) [#/Vol] 3.92 10*6/uL Normal 3.60-5.00 [facility] Comment on above: Performed By: #### C MP, CBC #### [facility] [address] WBC (Bld) [#/Vol] 5.2 10*3/uL Normal 3.8-11.6 [facility] Comment on above: Performed By: #### C MP, CBC #### [facility] [address] [place] [id number] [facility] Creatine Kinaseon 09-10-2022 CK [Catalytic activity/Vol] 39 U/L Normal [facility] Comment on above: Performed By: #### C MP, CBC #### [facility] [address] [place] [address] Creatine kinase [Enzymatic a ctivity/volume] in Serum or PlasmaOrdered By: Joo Ramos on 09-10-2022 CK [Catalytic activity/Vol] 39 U/L [facility] Creatinine [Mass/volume] in Serum or PlasmaOrdered By: Joo Ramos on 09-10-2022 Creatinine [Mass/Vol] 0.83 mg/dL 0.60-1.20 [facility] ECG 12 lead ECGon 09-10-2022 ECG 12 lead ECG [facility] Main [place] [address] [place] [address] Electrocardiograph Report Signed Patient: Carmen Bledsoe MR#: [id number] 9 : 1960 Acct:[id number] Age/Sex: 61 / F ADM Date: 09/10/22 Loc: Room: [address] [place] [address] Type: ADM IN Attending Dr: Marilyn Sun [...] By Maikol Siddiqui MD 0 09/11/22 0653 [facility] ECG 12 lead ECG [facility] [place] [address] Electrocardiograph Report Signed Patient: Carmen Bledsoe MR#: [id number] 9 : 1960 Acct:[id number] Age/Sex: 61 / F ADM Date: 09/10/22 Loc: Room: [address] [place] [address] Type: ADM IN Attending Dr: Marilyn Sun [...] ECGs available Confirmed by Joo Ramos DO ([id number]) on 09/10/2022 6:56:24 PM Referred By: Electronically Signed By:Joo Ramos DO Transcribed By: MANUEL Signed By Joo Ramos DO 3 1856 [facility] Eosinophils Auto (Bld) [#/Vo l]Ordered By: Joo Ramos on 09-10-2022 Eosinophils (Bld) [#/Vol] 0.1 10*3/uL 0.0-0.45 [facility] Eosinophils/100 WBC Auto (Bl d)Ordered By: Joo Ramos on 09-10-2022 Eosinophils/100 WBC (Bld) 1.6 % . [facility] Erythrocyte distribution wid th Auto (RBC) [Ratio]Ordered By: Joo Ramos on 09-10-2022 Erythrocyte distribution width (RBC) [Ratio] 17.5 % 11.9-15.3 [facility] Globulin Calc (S) [Mass/Vol] Ordered By: Joo Ramos on 09-10-2022 Globulin (S) [Mass/Vol] 2.7 g/dL [facility] Glucose Poct Glucometerson 0 09-10-2022 Glucose [Mass/Vol] 188 mg/dL Normal [facility] Comment on above: Result Comment: [place] om Glucose Reference Range is dependent on time and content of last meal. Glucose of more than 200 mg/dL in a nonstressed, ambulatory subject supports the diagnosis of Diabetes Mellitus. PERFORMED BY: [facility] [address] [facility] [place] [address] PATHOLOGIST SURVIVAL SPECIALIST EZRA MCCLAIN M.D. Performed By: #### G LULS #### Point of Care testing , Glucose [Mass/Vol] 118 mg/dL Normal [facility] Comment on above: Result Comment: [place] Glucose Reference Range is dependent on time and content of last meal. Glucose of more than 200 mg/dL in a nonstressed, ambulatory subject supports the diagnosis of Diabetes Mellitus. PERFORMED BY: [facility] [address] [facility] [place] [address] PATHOLOGIST SURVIVAL SPECIALIST EZRA MCCLAIN M.D. Performed By: #### G LULS #### Point of Care testing , Glucose [Mass/volume] in Ser um or PlasmaOrdered By: Joo Ramos on 09-10-2022 Glucose [Mass/Vol] 91 mg/dL 74-109 [facility] Comment on above: ADA recommended refe rence rangeRandom Glucose Reference Range is dependent on time and content of last meal. Glucose of more than 200 mg/dL in a nonstressed, ambulatory subject supports the diagnosis of Diabetes Mellitus. Glucose mean value [Mass/vol ume] in Blood Estimated from glycated hemoglobinOrdered By: Marilyn Sun on 09-10-2022 Average glucose Estimated from glycated hemoglobin (Bld) [Mass/Vol] 128 mg/dL [facility] Hematocrit Auto (Bld) [Volum e fraction]Ordered By: Joo Ramos on 09-10-2022 Hematocrit (Bld) [Volume fraction] 37.7 % 34.0-46.4 [facility] Hemoglobin A1c percentageOrd ered By: Marilyn Sun on 09-10-2022 HbA1c (Bld) [Mass fraction] 6.1 % 4.3-5.6 [facility] Comment on above: Increased risk for d iabetes: 5.7 - 6.4diabetes: >6.4glycemic control for adults with diabetes: <7.0 Hemoglobin [Mass/volume] in BloodOrdered By: Joo Ramos on 09-10-2022 Hemoglobin (Bld) [Mass/Vol] 12.5 g/dL 11.8-15.4 [facility] Hepatic Panelon 09-10-2022 Albumin [Mass/Vol] 4.4 g/dL Normal 3.5-5.7 [facility] Comment on above: Performed By: #### C MP, CBC #### [facility] [address] Albumin/Globulin [Mass ratio] 1.6 {ratio} Normal [facility] Comment on above: Performed By: #### C MP, CBC #### [facility] [address] [place] [id number] [place] ALP [Catalytic activity/Vol] 121 U/L High 34-104 [facility] Comment on above: Performed By: #### C MP, CBC #### [facility] [address] [place] [id number] [place] ALT [Catalytic activity/Vol] 50 U/L Normal 7-52 [facility] Comment on above: Performed By: #### C MP, CBC #### [facility] [address] [place] [id number] [place] AST [Catalytic activity/Vol] 71 U/L High 13-39 [facility] Comment on above: Performed By: #### C MP, CBC #### [facility] [address] Bilirubin [Mass/Vol] 0.4 mg/dL Normal 0.3-1.0 [facility] Comment on above: Performed By: #### C MP, CBC #### [facility] [address] Bilirubin,Indirect 0.3 mg/dL Normal [facility] Comment on above: Performed By: #### C MP, CBC #### [facility] [address] Bilirubin.indirect [Mass/Vol] 0.10 mg/dL Normal 0.03-0.18 [facility] Comment on above: Performed By: #### C MP, CBC #### [facility] [address] Globulin (S) [Mass/Vol] 2.7 g/dL Normal [facility] Comment on above: Performed By: #### C MP, CBC #### [facility] [address] Protein [Mass/Vol] 7.1 g/dL Normal 6.4-8.9 [facility] Comment on above: Performed By: #### C MP, CBC #### [facility] [address] [place] [address] Ketones Auto test strip (U) [Mass/Vol]Ordered By: Joo Ramos on 09-10-2022 Ketones (U) [Mass/Vol] Negative Negative [facility] Laboratory - Chemistry and C hemistry - challengeOrdered By: Joo Ramos on 09-10-2022 GFR/1.73 sq M.predicted MDRD (S/P/Bld) [Vol rate/Area] mL/min/{1.73_m2} [facility] Laboratory - CoagulationOrde red By: Joo Ramos on 09-10-2022 PT Coag (PPP) [Time] 11.8 s 9.0-12.9 [facility] Leukocytes [#/volume] correc jeffrey for nucleated erythrocytes in Blood by Automated counOrdered By: Joo Ramos on 09-10-2022 WBC corrected for nucl RBC Auto (Bld) [#/Vol] 5.2 10*3/uL 3.8-11.6 [facility] Lipid Panelon 09-10-2022 Cholesterol [Mass/Vol] 169 mg/dL Normal 140-200 [facility] Comment on above: Order Comment: Comme nt add on Result Comment: Chol less than 200 mg/dl low risk Chol 201-239 mg/dl borderline risk Chol 240 mg/dl and greater high risk Performed By: #### C MP, CBC #### [facility] [address] Cholesterol in HDL [Mass/Vol] 73 mg/dL Normal 35-85 [facility] [facility] Comment on above: Order Comment: Comme nt add on Result Comment: HDL CHOL ATP-III CLASSIFICATION Cardiovascular Risk HDL > or equal to 60 mg/dL LOW HDL < 40 mg/dL HIGH Performed By: #### C MP, CBC #### [facility] [address] Cholesterol.total/Ch olesterol in HDL [Mass ratio] 2.3 {ratio} Normal <5.0 [facility] Comment on above: Order Comment: Comme nt add on Result Comment: PERF ORMED BY: [place] [address] PATHOLOGIST SURVIVAL SPECIALIST EZRA MCCLAIN M.D. Performed By: #### C MP, CBC #### [facility] [address] LDL Cholesterol,Calculat ed 62 mg/dL Normal 0-100 [facility] Comment on above: Order Comment: Comme nt add on Result Comment: LDL ATP III CLASSIFICATION LDL less than 100 mg/dL Optimal LDL 100-129 mg/dL Near or above optimal LDL 130-159 mg/dL Borderline high LDL 160-189 mg/dL High LDL greater than 189 mg/dL Very high Performed By: #### C MP, CBC #### [facility] [address] [place] [address] [place] Triglyceride w/Reflex 172 mg/dL High 0-149 [facility] Comment on above: Order Comment: Comme nt add on Result Comment: TRIG ATP III CLASSIFICATION TRIG less than 150 mg/dL Normal TRIG 150-199 mg/dL Borderline high TRIG 200-500 mg/dL High TRIG greater than 500 mg/dL Very high Standard traceable to the Center for Disease Conrtrol and Prevention (CDC) test method. Performed By: #### C MP, CBC #### [facility] [address] VLDL CHOLESTEROL 34 mg/dL Normal [facility] Comment on above: Order Comment: Comme nt add on Performed By: #### C MP, CBC #### [facility] [address] Lymphocytes Auto (Bld) [#/Vo l]Ordered By: Joo Ramos on 09-10-2022 Lymphocytes (Bld) [#/Vol] 1.1 10*3/uL 1.00-4.8 [facility] Lymphocytes/100 WBC Auto (Bl d)Ordered By: Joo Ramos on 09-10-2022 Lymphocytes/100 WBC (Bld) 21.5 % . [facility] MCH Auto (RBC) [Entitic mass ]Ordered By: Joo Ramos on 09-10-2022 MCH (RBC) [Entitic mass] 31.8 pg 24.7-34.3 [facility] MCHC Auto (RBC) [Mass/Vol]Or dered By: Joo Ramos on 09-10-2022 MCHC (RBC) [Mass/Vol] 33.1 g/dL 32.0-35.0 [facility] MCV Auto (RBC) [Entitic vol] Ordered By: Joo Ramos on 09-10-2022 MCV (RBC) [Entitic vol] 96.1 fL 80-100 [facility] Monocyte distribution width [Entitic volume] in Blood by AutomatedOrdered By: Joo Ramos on 09-10-2022 Monocyte distribution width Auto (Bld) [Entitic vol] 18.14 % 0.00-20.00 [facility] Monocytes Auto (Bld) [#/Vol] Ordered By: Joo Ramos on 09-10-2022 Monocytes (Bld) [#/Vol] 0.3 10*3/uL 0.0-0.8 [facility] Monocytes/100 WBC Auto (Bld) Ordered By: Joo Ramos on 09-10-2022 Monocytes/100 WBC (Bld) 5.1 % . [facility] Natriuretic peptide B [Mass/ Vol]Ordered By: Joo Ramos on 09-10-2022 Natriuretic peptide B (Bld) [Mass/Vol] 6.0 pg/mL 5-100 [facility] Neutrophils Auto (Bld) [#/Vo l]Ordered By: Joo Ramos on 09-10-2022 Neutrophils (Bld) [#/Vol] 3.7 10*3/uL 1.8-7.7 [facility] Neutrophils/100 WBC Auto (Bl d)Ordered By: Joo Ramos on 09-10-2022 Neutrophils/100 WBC (Bld) 70.7 % . [facility] Nitrite Test strip Ql (U)Ord ered By: Joo Ramos on 09-10-2022 Nitrite Ql (U) Negative Negative [facility] No Panel InformationOrdered By: Joo Ramos on 09-10-2022 Pharmacy Creatinine Clearance (Chem 109.50 [facility] Nucleated erythrocytes [Pres ence] in Blood by Automated countOrdered By: Joo Ramos on 09-10-2022 Nucleated RBC Auto Ql (Bld) 0.3 /100{WBC} 0-0.5 [facility] Partial Thromboplastin Timeo n 09-10-2022 aPTT Coag (Bld) [Time] 31.2 s Normal 25.1-36.5 [facility] Comment on above: Result Comment: PERF ORMED BY: [place] [address] PATHOLOGIST SURVIVAL SPECIALIST EZRA MCCLAIN M.D. Performed By: #### C MP, CBC #### [address] Platelet mean volume Auto (B ld) [Entitic vol]Ordered By: Joo Ramos on 09-10-2022 Platelet mean volume (Bld) [Entitic vol] 7.2 fL 6.3-10.7 [facility] Platelet poor plasma interna tional normalized ratio (INR) by coagulation assay (relatOrdered By: Joo Ramos on 09-10-2022 INR Coag (PPP) [Relative time] 1.0 {INR} [facility] Comment on above: INR Therapeutic Rang e [...] 09-10-2022 Platelets (Bld) [#/Vol] 180 10*3/uL 150-450 [facility] Potassium [Moles/volume] in Serum or PlasmaOrdered By: Joo Ramos on 09-10-2022 Potassium [Moles/Vol] 4.7 mmol/L 3.5-5.1 [facility] Protein Auto test strip (U) [Mass/Vol]Ordered By: Joo Ramos on 09-10-2022 Protein (U) [Mass/Vol] Negative Negative [facility] Protein [Mass/volume] in Ser um or PlasmaOrdered By: Joo Ramos on 09-10-2022 Protein [Mass/Vol] 7.1 g/dL 6.4-8.9 [facility] Prothrombin Time INRon 09-10 INR Coag (PPP) [Relative time] 1.0 {INR} Normal [facility] Comment on above: Result Comment: INR Therapeutic [...] Performed By: #### C MP, CBC #### [address] PT Coag (PPP) [Time] 11.8 s Normal 9.0-12.9 [facility] Comment on above: Performed By: #### C MP, CBC #### [facility] [address] [place] [address] RBC Auto (Bld) [#/Vol]Ordere d By: Joo Ramos on 09-10-2022 RBC (Bld) [#/Vol] 3.92 10*6/uL 3.60-5.00 [facility] Respiratory (Upper) Panel, P CRon 09-10-2022 Respiratory [...] COVID-19 Detected/Not Detected Not detected PERFORMED BY: [place] [address] PATHOLOGIST SURVIVAL SPECIALIST EZRA MCCLAIN M.D. [facility] Comment on above: Performed By: #### C MP, CBC #### [address] Respiratory pathogens DNA an d RNA panel - Nasopharynx by TERESO with non-probe detectionOrdered By: Marilyn Sun on 09-10-2022 Respiratory pathogens DNA and RNA panel TERESO+non-probe (Nph) [facility] Serum or plasma albumin/glob ulin mass ratioOrdered By: Joo Ramos on 09-10-2022 Albumin/Globulin [Mass ratio] 1.6 {ratio} [facility] Serum or plasma anion gap de terminationOrdered By: Joo Ramos on 09-10-2022 Anion gap [Moles/Vol] 13.7 mmol/L 6.0-15.0 [facility] Serum or plasma high density lipoprotein (HDL) cholesterol measurementOrdered By: Marilyn Sun on 09-10-2022 Cholesterol in HDL [Mass/Vol] 73 mg/dL 35-85 [facility] Comment on above: HDL CHOL ATP-III CLA SSIFICATION Cardiovascular RiskHDL > or equal to 60 mg/dL LOWHDL < 40 mg/dL HIGH Serum or plasma non-glucuron idated bilirubin measurement (mass/volume)Ordered By: Joo Ramos on 09-10-2022 Bilirubin.indirect [Mass/Vol] 0.3 mg/dL [facility] Serum or plasma total choles terol/high density lipoprotein (HDL) cholesterol mass ratOrdered By: Marilyn Sun on 09-10-2022 Cholesterol.total/Ch olesterol in HDL [Mass ratio] 2.3 {ratio} <5.0 [facility] Sodium [Moles/volume] in Ser um or PlasmaOrdered By: Joo Ramos on 09-10-2022 Sodium [Moles/Vol] 137 mmol/L 136-145 [facility] Specific gravity Auto test s trip (U) [Rel density]Ordered By: Joo Ramos on 09-10-2022 Specific gravity (U) [Rel density] 1.005 1.001-1.030 [facility] Triglyceride [Mass/volume] i n Serum or PlasmaOrdered By: Marilyn Sun on 09-10-2022 Triglyceride [Mass/Vol] 172 mg/dL 0-149 [facility] Comment on above: TRIG ATP III CLASSIF ICATIONTRIG less than 150 mg/dL NormalTRIG 150-199 mg/dL Borderline highTRIG 200-500 mg/dL High TRIG greater than 500 mg/dL Very highStandard traceable to the Center for Disease Conrtrol and Prevention (CDC) test method. Troponin I High Sensitivityo n 09-10-2022 Troponin I High Sensitivity 6.3 pg/mL Normal 0.0-15.0 [facility] Comment on above: Result Comment: PERF ORMED BY: [facility] [address] [place] [address] PATHOLOGIST SURVIVAL SPECIALIST EZRA MCCLAIN M.D. Performed By: #### H S TROP #### [facility] [address] [place] [address] [place] Troponin I High Sensitivity 6.6 pg/mL Normal 0.0-15.0 [facility] Comment on above: Result Comment: PERF ORMED BY: [place] [address] PATHOLOGIST SURVIVAL SPECIALIST EZRA MCCLAIN M.D. Performed By: #### H S TROP #### [facility] [address] [place] [address] [place] Troponin I High Sensitivity 6.3 pg/mL Normal 0.0-15.0 [facility] Comment on above: Result Comment: PERF ORMED BY: [place] [address] PATHOLOGIST SURVIVAL SPECIALIST EZRA MCCLAIN M.D. Performed By: #### C MP, CBC #### [facility] [address] [place] [address] Troponin I.cardiac [Mass/vol ume] in Serum or Plasma by Detection limit <= 0.01 ng/Ordered By: Marilyn Sun on 09-10-2022 Troponin I.cardiac DL <= 0.01 ng/mL [Mass/Vol] 5.3 pg/mL 0.0-15.0 [facility] Troponin I.cardiac [Mass/vol ume] in Serum or Plasma by Detection limit <= 0.01 ng/Ordered By: Joo Ramos on 09-10-2022 Troponin I.cardiac DL <= 0.01 ng/mL [Mass/Vol] 6.3 pg/mL 0.0-15.0 [facility] Urea nitrogen [Mass/volume] in Serum or PlasmaOrdered By: Joo Ramos on 09-10-2022 Urea nitrogen [Mass/Vol] 24 mg/dL 7- [facility] Urinalysison 09-10-2022 Appearance (U) Clear Normal Clear [facility] Comment on above: Order Comment: Name Collection Type:: Clean-Voided Midstream Performed By: #### C MP, CBC #### [facility] [address] [place] [address] [place] Bilirubin,Urine Negative Normal Negative [facility] Comment on above: Order Comment: Name Collection Type:: Clean-Voided Midstream Performed By: #### C MP, CBC #### [facility] [address] [place] [address] [place] Color (U) Yellow Normal Yellow [facility] Comment on above: Order Comment: Name Collection Type:: Clean-Voided Midstream Performed By: #### C MP, CBC #### [facility] [address] [place] [address] Glucose Ql (U) Normal Normal Normal [facility] Comment on above: Order Comment: Name Collection Type:: Clean-Voided Midstream Performed By: #### C MP, CBC #### [address] Ketones Ql (U) Negative Normal Negative [facility] Comment on above: Order Comment: Name Collection Type:: Clean-Voided Midstream Performed By: #### C MP, CBC #### [address] Leukocyte esterase Test strip Ql (U) Negative Normal Negative [facility] Comment on above: Order Comment: Name Collection Type:: Clean-Voided Midstream Performed By: #### C MP, CBC #### [place] [address] [place] Nitrite,Urine Negative Normal Negative [facility] Comment on above: Order Comment: Name Collection Type:: Clean-Voided Midstream Performed By: #### C MP, CBC #### [facility] [address] [place] [address] [place] Occult Blood,Urine Negative Normal Negative [facility] Comment on above: Order Comment: Name Collection Type:: Clean-Voided Midstream Result Comment: PERF ORMED BY: [place] [address] PATHOLOGIST SURVIVAL SPECIALIST EZRA MCCLAIN M.D. Performed By: #### C MP, CBC #### [facility] [address] [place] [address] pH (U) 5.5 [pH] Normal 5.0-9.0 [facility] Comment on above: Order Comment: Name Collection Type:: Clean-Voided Midstream Performed By: #### C MP, CBC #### [facility] [address] [place] [address] [place] Protein,Urine Negative Normal Negative [facility] Comment on above: Order Comment: Name Collection Type:: Clean-Voided Midstream Performed By: #### C MP, CBC #### [facility] [address] Specificy [place],Urine 1.005 Normal 1.001-1.030 [facility] Comment on above: Order Comment: Name Collection Type:: Clean-Voided Midstream Performed By: #### C MP, CBC #### [address] Urobilinogen,Urine Normal Normal Normal [facility] Comment on above: Order Comment: Name Collection Type:: Clean-Voided Midstream Performed By: #### C MP, CBC #### [address] Urine clarity by refractomet ry automatedOrdered By: Joo Ramos on 09-10-2022 Clarity Refractometry automated (U) Clear Clear [facility] Urine glucose measurement by automated test strip (mass/volume)Ordered By: Joo Ramos on 09-10-2022 Glucose Auto test strip (U) [Mass/Vol] Normal mg/dL Normal [facility] Urine hemoglobin detection b y automated test stripOrdered By: Joo Ramos on 09-10-2022 Hemoglobin Auto test strip Ql (U) Negative Negative [facility] Urine leukocyte esterase det ection by automated test stripOrdered By: Joo Ramos on 09-10-2022 Leukocyte esterase Auto test strip Ql (U) Negative Negative [facility] Urobilinogen Auto test strip (U) [Mass/Vol]Ordered By: Joo Ramos on 09-10-2022 Urobilinogen (U) [Mass/Vol] Normal mg/dL Normal [facility] WBC Auto (Bld) [#/Vol]Ordere d By: Joo Ramos on 09-10-2022 WBC (Bld) [#/Vol] 5.2 10*3/uL 3.8-11.6 [facility] XR chest 2V*on 09-10-2022 XR chest 2V* [facility] [place] [address] XRay Report Signed Patient: Carmen Bledsoe MR#: [id number] 9 : 1960 Acct:[id number] Age/Sex: 61 / F ADM Date: 09/10/22 [...] PNEUMONIA. Impression dictated by: Jacques Vicente Jr., SandieOFranco09/10/2022 11:55 AM Dictation Location: [place] [address] Transcribed By: [facility] 09/10/22 1155 Dictated By: Jacques Vicente Jr, DO 09/10/22 1155 Signed By: 09/10/22 1155 Normal [facility] pH Auto test strip (U)Ordere d By: Joo Ramos on 09-10-2022 pH (U) 5.5 [pH] 5.0-9.0 [facility] CHEMISTRYOrdered By: SYSTEM SYSTEM on 09-06-2022 Anion gap [Moles/Vol] 12 mmol/L Normal 6 - 16 mEq/L [facility] Rem[facility] Calcium [Mass/Vol] 8.9 mg/dL Normal 8.9 - 11.1 mg/dL [facility] Chloride [Moles/Vol] 96 mmol/L Low 101 - 111 mmol/ L [facility] CO2 [Moles/Vol] 29 mmol/L Normal 21 - 31 mmol/L [facility] Creatinine [Mass/Vol] 0.9 mg/dL Normal 0.5 - 1.3 mg/dL [facility] Rem[facility] GFR/1.73 sq M.predicted among blacks MDRD (S/P/Bld) [Vol rate/Area] mL/min/1.73 m2 Normal >=59mL/min/1.73 m2 [facility] Chem S GFR/1.73 sq M.predicted among non-blacks MDRD (S/P/Bld) [Vol rate/Area] mL/min/1.73 m2 Normal >=59mL/min/1.73 m2 [facility] Chem S Glucose [Mass/Vol] 102 mg/dL Normal 55 - 199 mg/dL [facility] Potassium [Moles/Vol] 4.3 mmol/L Normal 3.5 - 5.3 mmol/L [facility] Sodium [Moles/Vol] 133 mmol/L Low 135 - 145 mmol/L [facility] Urea nitrogen [Mass/Vol] 17 mg/dL Normal 5 - 21 mg/dL [facility] Urea nitrogen/Creatinine [Mass ratio] 19 mg/mg Normal 10 - 20 [facility] CHEMISTRYOrdered By: SYSTEM SYSTEM on 08-20-2022 Albumin [Mass/Vol] 4.1 g/dL Normal 3.3 - 5.0 gm/dL [facility] Remisol Albumin/Globulin [Mass ratio] 1.2 {ratio} Normal 1.1 - 2.2 [facility] ALP [Catalytic activity/Vol] 110 [iU]/d High 21 - 98 Int._Unit/L [facility] ALT No additional P-5'-P [Catalytic activity/Vol] 55 [iU]/d High 6 - 46 Int._Unit/L [facility] Anion gap [Moles/Vol] 17 mmol/L High 6 - 16 mEq/L [facility] AST [Catalytic activity/Vol] 89 [iU]/d High 5 - 43 Int._Unit/L [facility] Bilirubin [Mass/Vol] 0.7 mg/dL Normal 0.0 - 1.1 mg/dL [facility] Calcium [Mass/Vol] 8.7 mg/dL Low 8.9 [...] m2 Normal >=59mL/min/1.73 m2 FT Chem S GFR/1.73 sq M.predicted among non-blacks MDRD (S/P/Bld) [Vol rate/Area] mL/min/1.73 m2 Normal >=59mL/min/1.73 m2 [facility] Chem S Globulin (S) [Mass/Vol] 3.5 g/dL Normal 1.4 - 4.0 gm/dL [facility] Glucose [Mass/Vol] 80 mg/dL Normal 55 - 199 mg/dL [facility] Potassium [Moles/Vol] 3.3 mmol/L Low 3.5 - 5.3 mmol/L [facility] Protein [Mass/Vol] 7.6 g/dL Normal 6.0 - 7.8 gm/dL [facility] Rem[facility] Sodium [Moles/Vol] 132 mmol/L Low 135 - 145 mmol/L [facility] Triglyceride [Mass/Vol] 139 mg/dL Normal <=149mg/dL [facility] TSH Qn 4.64 m[IU]/L Normal 0.34 - 5.60 mcIU/mL [facility] Urea nitrogen [Mass/Vol] 16 mg/dL Normal 5 - 21 mg/dL [facility] Urea nitrogen/Creatinine [Mass ratio] 23 mg/mg High 10 - 20 [facility] CHEMISTRYOrdered By: Hilario Leos on 08-20-2022 Albumin DL <= 20 mg/L (U) [Mass/Vol] 4.6 microgram/mL Normal 0.0 - 19.0 mcg/mL [facility] CHEMISTRYOrdered By: Alfredo wayne on 08-20-2022 HbA1c (Bld) [Mass fraction] 6.3 % High <=5.9% [facility] ChemAutoSS HEMATOLOGYOrdered By: Arlene Andrade on 08-20-2022 Erythrocyte distribution width (RBC) [Ratio] 16.6 % High 10.9 - 14.2 % [facility] HemeAutoSS Hematocrit (Bld) [Volume fraction] 42.3 % Normal 34.0 - 46.0 % [facility] HemeAutoSS Hemoglobin (Bld) [Mass/Vol] 13.7 g/dL Normal 12.0 - 16.0 gm/dL [facility] HemeAutoSS MCH (RBC) [Entitic mass] 30.6 pg Normal 27.0 - 34.0 pg [facility] HemeAutoSS MCHC (RBC) [Mass/Vol] 32.4 g/dL Normal 31.4 - 36.0 gm/dL [facility] HemeAutoSS MCV (RBC) [Entitic vol] 94.5 fL Normal 80.0 - 100.0 fL [facility]eAutoSS Platelet mean volume (Bld) [Entitic vol] 7.7 fL Normal 6.4 - 10.8 fL [facility]eAutoSS Platelets (Bld) [#/Vol] 203.0 E9/L Normal 150.0 - 500.0 E9/L [facility] HemeAutoSS RBC (Bld) [#/Vol] 4.5 E12/L Normal 4.3 - 5.9 E12/L [facility] HemeAutoSS WBC corrected for nucl RBC Auto (Bld) [#/Vol] 7.1 E9/L Normal 4.0 - 11.0 E9/L [facility] HemeAutoSS XR CHEST (2 VW)on 05-21-2021 Negative [...] and upper abdomen normal. IMPRESSION: Negative chest. [id number] Phone: Radiology Study observation (narrative) [id number] Phone: XR CHEST (2 VW)Ordered By: Chester Minor on 05-21-2021 [employer] Phone: COVID-19on 03-17-2020 SARS-CoV-2, Rapid Not Detected Not Detected [place], [place] Comment on above: Rapid NAAT: The [...] management decisions. Fact sheet for Healthcare Providers: https://www.fda.gov/media/901943/download Fact sheet for Patients: https://www.fda.gov/media/410722/download Methodology: Isothermal Nucleic Acid Amplification Source .THROAT [place], [place] Otheron 03-17-2020 SARS-CoV-2 [place] US PELVIS COMPLETEon 020 1. 8 cm intrauterine fibroid. 2. Likely vascular polyp in the cervix. [place] EXAM: US PELVIS COMPLETE HISTORY: N85.2. [...] ovary: 2.8 x 2.0 x 1.3 cm. [place] Dre, [facility] Incoming Radiant Results From [facility] - 02/19/2020 4:19 PM EDT EXAM: US [...] 2. Likely vascular polyp in the cervix. [place] BUN & creatinineon 0 Creatinine [Mass/Vol] 0.81 mg/dL 0.5 - 0.9 mg/dL [place] GFR >60 >60 mL/min [place] GFR Non- >60 >60 mL/min [place] GFR/1.73 sq M predicted among non-blacks MDRD (S/P/Bld) [Vol rate/Area] [place] Comment on above: Average GFR for 50-5 9 years old: 93 mL/min/1.73sq m Chronic Kidney Disease: <60 mL/min/1.73sq m Kidney failure: <15 mL/min/1.73sq m eGFR calculated using average adult body mass. Additional eGFR calculator available at: http://www.[employer]/multiple_crcl_2012.htm GFR/1.73 sq M predicted among non-blacks MDRD (S/P/Bld) [Vol rate/Area] NOT REPORTED [place] Urea nitrogen [Mass/Vol] 15 mg/dL 6 - 20 mg/dL [place] CT ABDOMEN PELVIS W IV CONTR AST Additional Contrast? Oralon 02-07-2020 No acute process in the abdomen or pelvis. Enlarged, fatty liver. Prominent, bulky uterus, a nonspecific finding that may be related to underlying fibroids or adenomyosis. [place] EXAMINATION: CT ABDOMEN PELVIS W IV [...] Chronic degenerative changes in the thoracolumbar spine. [place] Dre, Mhpn Incoming Radiant Results From [employer] - 02/07/2020 3:09 PM EDT EXAMINATION: CT [...] be related to underlying fibroids or adenomyosis. [place] CBC Auto Differentialon 03-0 5-2020 Basophils (Bld) [#/Vol] 0.00 10*3/uL [place] Basophils/100 WBC (Bld) 0 % 0 - 2 % [place] Differential Type YES [place] Eosinophils (Bld) [#/Vol] 0.10 10*3/uL [place] Eosinophils/100 WBC (Bld) 1 % 0 - 5 % [place] Erythrocyte distribution width (RBC) [Ratio] 15.7 % High 12.1 - 15.2 % [place] Hematocrit (Bld) [Volume fraction] 37.6 % 36 - 46 % [place] Hemoglobin (Bld) [Mass/Vol] 12.4 g/dL 12 - 16 g/dL [place] Interpretation and review of laboratory results Abnormal [place] Lymphocytes (Bld) [#/Vol] 1.40 10*3/uL [place] Lymphocytes/100 WBC (Bld) 20 % 15 - 40 % [place] MCH (RBC) [Entitic mass] 29.0 pg 26 - 34 pg [place] MCHC (RBC) [Mass/Vol] 33.0 g/dL 31 - 37 g/dL [place] MCV (RBC) [Entitic vol] 87.9 fL 80 - 100 fL [place] Monocytes (Bld) [#/Vol] 0.40 10*3/uL [place] Monocytes/100 WBC (Bld) 6 % 4 - 8 % [place] Platelet mean volume (Bld) [Entitic vol] NOT REPORTED 6 - 12 fL [place] Platelets (Bld) [#/Vol] NOT REPORTED [place] Platelets (Bld) [#/Vol] 268 10*3/uL [place] RBC (Bld) [#/Vol] 4.28 10*6/uL 4 - 5.2 m/uL [place] RBC morphology finding Nom (Bld) NOT REPORTED [place] Segmented neutrophils/100 WBC (Bld) 73 % 47 - 75 % [place] Segs Absolute 5.10 [place] WBC (Bld) [#/Vol] 7.1 10*3/uL [place] WBC (Bld) [#/Vol] NOT REPORTED per 100 WBC [place] WBC Morphology NOT REPORTED [place] Comprehensive Metabolic Pane usman 09-06-2019 Albumin [Mass/Vol] 4.5 g/dL 3.5 - 5.2 g/dL [place] Albumin/Globulin [Mass ratio] NOT REPORTED [place] ALP [Catalytic activity/Vol] 92 U/L 35 - 104 U/L [place] ALT [Catalytic activity/Vol] 28 U/L 5 - 33 U/L [place] Anion gap [Moles/Vol] 13 mmol/L 9 - 17 mmol/L [place] AST [Catalytic activity/Vol] 19 U/L <32 [place] Bilirubin Ql (U) 0.40 mg/dL 0.3 - 1.2 mg/dL [place] Bun/Cre Ratio 26 High [place] Calcium [Mass/Vol] 10.2 mg/dL 8.6 - 10.4 mg/dL [place] Chloride [Moles/Vol] 99 mmol/L 98 - 107 mmol/L [place] CO2 [Moles/Vol] 28 mmol/L 20 - 31 mmol/L [place] Creatinine [Mass/Vol] 0.86 mg/dL 0.5 - 0.9 mg/dL [place] GFR >60 >60 mL/min [place] GFR Non- >60 >60 mL/min [place] GFR/1.73 sq M predicted among non-blacks MDRD (S/P/Bld) [Vol rate/Area] NOT REPORTED [place] GFR/1.73 sq M predicted among non-blacks MDRD (S/P/Bld) [Vol rate/Area] [place] Comment on above: Average GFR for 50-5 9 years old: 93 mL/min/1.73sq m Chronic Kidney Disease: <60 mL/min/1.73sq m Kidney failure: <15 mL/min/1.73sq m eGFR calculated using average adult body mass. Additional eGFR calculator available at: http://www.[employer]/multiple_crcl_2012.htm Glucose [Mass/Vol] 121 mg/dL High 70 - 99 mg/dL [place] Potassium [Moles/Vol] 4.6 mmol/L 3.7 - 5.3 mmol/L [place] Protein [Mass/Vol] 7.7 g/dL 6.4 - 8.3 g/dL [place] Sodium [Moles/Vol] 140 mmol/L 135 - 144 mmol/L [place] Urea nitrogen [Mass/Vol] 22 mg/dL High 6 - 20 mg/dL [place] Hemoglobin A1Con 09-06-2019 Glucose [Mass/Vol] 128 mg/dL [place] Comment on above: The ADA and AACC rec ommend providing the estimated average glucose result to permit better patient understanding of their HBA1c result. HbA1c (Bld) [Mass fraction] 6.1 % High 4.8 - 5.9 % [place] Interpretation and review of laboratory results Abnormal [place] Lipid Panelon 09-06-2019 Cholesterol [Mass/Vol] 166 mg/dL <200 [place] Comment on above: Cholesterol Guidelines: <200 Desirable 200-240 Borderline >240 Undesirable Cholesterol in HDL [Mass/Vol] 39 mg/dL Low >40 [place] Comment on above: HDL Guidelines: <40 Undesirable 40-59 Borderline >59 Desirable Cholesterol in LDL [Mass/Vol] 71 mg/dL 0 - 130 mg/dL [place] Comment on above: LDL Guidelines: <100 Desirable 100-129 Near to/above Desirable 130-159 Borderline >159 Undesirable Direct (measured) LDL and calculated LDL are not interchangeable tests. Cholesterol in VLDL [Mass/Vol] NOT REPORTED High 1 - 30 mg/dL [place] Cholesterol.total/Ch olesterol in HDL [Mass ratio] 4.3 {ratio} <5 [place] Triglyceride [Mass/Vol] 280 mg/dL High <150 [place] Comment on above: Triglyceride Guidelines: <150 Desirable 150-199 Borderline 200-499 High >499 Very high Based on AHA Guidelines for fasting triglyceride, April 2012. Magnesiumon 09-06-2019 Magnesium [Mass/Vol] 1.9 mg/dL 1.6 - 2.6 mg/dL [place] Otheron 09-06-2019 Interpretation and review of laboratory results Abnormal [place] Immature granulocytes (Bld) [#/Vol] NOT REPORTED 0 % [place] Patient Fasting?on 0 Patient Fasting? yes [place] TSH with Reflexon 09-06-2019 TSH Qn 2.01 m[IU]/L [place], [place] Vitamin D 25 Hydroxyon 09-05 Interpretation and review of laboratory results Abnormal [place] Vit D, 25-Hydroxy 29.5 ng/mL Low 30 - 100 ng/mL [place] Comment on above: Reference Range: Vitamin D status Range Deficiency <20 ng/mL Mild Deficiency 20-30 ng/mL Sufficiency 30-100 ng/mL Toxicity >100 ng/mL XR CHEST STANDARD (2 VW)on 0 09-06-2019 No evidence of acute disease in the chest or change from 02/23/2018. [place] CHEST, TWO VIEWS, 09/06/2019: CLINICAL HISTORY: [...] calcification and tortuosity of the thoracic aorta. [place] Dre, [facility] Incoming Radiant Results From [employer] - 09/06/2019 10:11 PM EST CHEST, TWO [...] in the chest or change from 02/23/2018. [facility] [place] Vital Signs Date Time Vital Sign Value Performing Clinician Idalmisi aquilino 11-07-2024 09:58-0400 Body height 167.6 cm MALINA Dean MD Work Phone: [facility] [employer] [facility] 11-07-2024 09:58-0400 Body mass index (BMI) [Ratio] 54.72 kg/m2 MALINA Dean MD [facility]: [facility] 11-07-2024 09:58-0400 Body weight 153.77 kg MALINA Dean MD Work Phone: [facility] 11-07-2024 09:58-0400 Diastolic blood pressure 82 mm[Hg] MALINA Dean MD Work Phone: [facility] 11-07-2024 09:58-0400 Heart rate 85 /min MALINA Dean MD Work Phone: [facility] 11-07-2024 09:58-0400 Respiratory rate 22 /min MALINA Dean MD Work Phone: [facility] 11-07-2024 09:58-0400 SaO2% (BldA) [Mass fraction] 97 % MALINA Dean MD Work Phone: [facility] 11-07-2024 09:58-0400 Systolic blood pressure 122 mm[Hg] MALINA Dean MD Work Phone: [facility] 07-18-2024 11:52-0500 Blood Pressure Location Myron Yocasta [facility] 07-18-2024 11:52-0500 Body temperature 97.52 [degF] Myron Yocasta [facility] 07-18-2024 11:52-0500 Diastolic blood pressure 82 mm[Hg] Myron Yocasta [facility] 07-18-2024 11:52-0500 Heart rate 78 /min Myron Yocasta [facility] 07-18-2024 11:52-0500 Respiratory rate 18 /min Myron Yocasta [facility] 07-18-2024 11:52-0500 SaO2% (BldA) [Mass fraction] 98 % Myron Yocasta [facility] 07-18-2024 11:52-0500 Systolic blood pressure 138 mm[Hg] Myron Yocasta [facility] 07-11-2024 11:15-0500 Blood Pressure Location Myron Yocasta [facility] 07-11-2024 11:15-0500 Body temperature 97.52 [degF] Myron Rust [facility] 07-11-2024 11:15-0500 Diastolic blood pressure 78 mm[Hg] Myron Yocasta [facility] 07-11-2024 11:15-0500 Heart rate 92 /min Myron Yocasta [facility] 07-11-2024 11:15-0500 Respiratory rate 18 /min Myron Yocasta [facility] 07-11-2024 11:15-0500 SaO2% (BldA) [Mass fraction] 99 % Myronross Rebolledoant [facility] 07-11-2024 11:15-0500 Systolic blood pressure 118 mm[Hg] Myronross Rust [facility] 06-05-2024 12:57-0500 Blood Pressure Location Rick Hernandez [facility] 06-05-2024 12:57-0500 Diastolic blood pressure 80 mm[Hg] Rick Hernandez [facility] 06-05-2024 12:57-0500 Heart rate 90 /min Rick Hernandez [facility] 06-05-2024 12:57-0500 Respiratory rate 16 /min Rick Hernandez [facility] 06-05-2024 12:57-0500 SaO2% (BldA) [Mass fraction] 96 % Rick Hernandez [facility] 06-05-2024 12:57-0500 Systolic blood pressure 126 mm[Hg] Rick Hernandez [facility] 02-22-2024 13:08-0400 Blood Pressure Location Myron Rust [facility] 02-22-2024 13:08-0400 Body temperature 97.88 [degF] Myron Yocasta [facility] 02-22-2024 13:08-0400 Diastolic blood pressure 68 mm[Hg] Myron Yocasta [facility] 02-22-2024 13:08-0400 Heart rate 63 /min Myron Yocasta [facility] 02-22-2024 13:08-0400 Respiratory rate 18 /min Myron Yocasta [facility] 02-22-2024 13:08-0400 SaO2% (BldA) [Mass fraction] 99 % Myron Rebolledoant [facility] 02-22-2024 13:08-0400 Systolic blood pressure 118 mm[Hg] Myron Yocasta [facility] 12-23-2023 13:25-0400 Diastolic blood pressure 84 mm[Hg] Cardoso Sarmini [facility] 12-23-2023 13:25-0400 Heart rate 78 /min Cardoso Sarmini [facility] 12-23-2023 13:25-0400 Mean blood pressure 111 mm[Hg] Cardoso Sarmini [facility] 12-23-2023 13:25-0400 Respiratory rate 24 /min Cardoso Sarmini [facility] 12-23-2023 13:25-0400 SaO2% (BldA) [Mass fraction] 98 % Cardoso Sarmini [facility] 12-23-2023 13:25-0400 Systolic blood pressure 166 mm[Hg] Cardoso Sarmini [facility] 12-23-2023 13:15-0400 Diastolic blood pressure 89 mm[Hg] Cardoso Sarmini [facility] 12-23-2023 13:15-0400 Heart rate 69 /min Cardoso Sarmini [facility] 12-23-2023 13:15-0400 Mean blood pressure 111 mm[Hg] Cardoso Sarmini [facility] 12-23-2023 13:15-0400 Respiratory rate 17 /min Cardoso Sarmini [facility] 12-23-2023 13:15-0400 SaO2% (BldA) [Mass fraction] 99 % Cardoso Sarmini [facility] 12-23-2023 13:15-0400 Systolic blood pressure 155 mm[Hg] Cardoso Sarmini [facility] 12-23-2023 13:10-0400 Diastolic blood pressure 95 mm[Hg] Cardoso Sarmini [facility] 12-23-2023 13:10-0400 Heart rate 85 /min Cardoso Sarmini [facility] 12-23-2023 13:10-0400 Mean blood pressure 110 mm[Hg] Cardoso Sarmini [facility] 12-23-2023 13:10-0400 Respiratory rate 15 /min Cardoso Sarmini [facility] 12-23-2023 13:10-0400 SaO2% (BldA) [Mass fraction] 99 % Cardoso Derekmini [facility] 12-23-2023 13:10-0400 Systolic blood pressure 141 mm[Hg] Cardoso Derekmini [facility] 12-23-2023 13:00-0400 Body temperature 97.7 [degF] Cardoso Derekmini [facility] 12-23-2023 10:45-0400 Blood Pressure Location Walker Reedmini [facility] 12-23-2023 10:45-0400 Body temperature 97.88 [degF] Cardoso Derekmini [facility] 12-06-2023 14:51-0400 Blood Pressure Location Alirio Adam [facility] 12-06-2023 14:51-0400 Diastolic blood pressure 80 mm[Hg] Alirio Adam [facility] 12-06-2023 14:51-0400 Heart rate 86 /min Alirio Ramirez [facility] 12-06-2023 14:51-0400 SaO2% (BldA) [Mass fraction] 94 % Alirio Adam [facility] 12-06-2023 14:51-0400 Systolic blood pressure 124 mm[Hg] Alirio Christofferson [facility] 11-25-2023 14:30-0400 Blood Pressure Location Myron Rust [facility] 11-25-2023 14:30-0400 Body temperature 96.8 [degF] Myron Rust [facility] 11-25-2023 14:30-0400 Diastolic blood pressure 80 mm[Hg] Myron Yocasta [facility] 11-25-2023 14:30-0400 Heart rate 89 /min Myron Yocasta [facility] 11-25-2023 14:30-0400 Respiratory rate 22 /min Myron Yocasta [facility] 11-25-2023 14:30-0400 SaO2% (BldA) [Mass fraction] 98 % Myron Yocasta [facility] 11-25-2023 14:30-0400 Systolic blood pressure 138 mm[Hg] Myron Yocasta [facility] 11-02-2023 10:06-0400 Blood Pressure Location Cardoso Sarmini [facility] 11-02-2023 10:06-0400 Diastolic blood pressure 60 mm[Hg] Cardoso Sarmini [facility] 11-02-2023 10:06-0400 Heart rate 78 /min Cardoso Sarmini [facility] 11-02-2023 10:06-0400 Respiratory rate 18 /min Cardoso Sarmini [facility] 11-02-2023 10:06-0400 Systolic blood pressure 118 mm[Hg] Cardoso Sarmini [facility] 10-26-2023 13:12-0400 Blood Pressure Location Myron Yocasta [facility] 10-26-2023 13:12-0400 Diastolic blood pressure 78 mm[Hg] Myron Yocasta [facility] 10-26-2023 13:12-0400 Heart rate 77 /min Myron Yocasta [facility] 10-26-2023 13:12-0400 Respiratory rate 16 /min Myron Yocasta [facility] 10-26-2023 13:12-0400 SaO2% (BldA) [Mass fraction] 99 % Myron Yocasta [facility] 10-26-2023 13:12-0400 Systolic blood pressure 122 mm[Hg] Myron Yocasta [facility] 10-25-2023 14:56-0400 Blood Pressure Location Alirio Christofferson [facility] 10-25-2023 14:56-0400 Diastolic blood pressure 76 mm[Hg] Alirio Christofferson [facility] 10-25-2023 14:56-0400 Heart rate 96 /min Alirio Christofferson [facility] 10-25-2023 14:56-0400 SaO2% (BldA) [Mass fraction] 67 % Alirio Christofferson [facility] 10-25-2023 14:56-0400 Systolic blood pressure 128 mm[Hg] Alirio Christofferson [facility] 10-11-2023 17:33-0400 Diastolic blood pressure 90 mm[Hg] Myron Yocasta [facility] 10-11-2023 17:33-0400 Mean blood pressure 107 mm[Hg] Myron Yocasta [facility] 10-11-2023 17:33-0400 Systolic blood pressure 142 mm[Hg] Myron Yocasta [facility] 10-11-2023 14:21-0400 Blood Pressure Location Myron Yocasta [facility] 10-11-2023 14:21-0400 Body temperature 98.6 [degF] Myron Yocasta [facility] 10-11-2023 14:21-0400 Diastolic blood pressure 90 mm[Hg] Myron Yocasta [facility] 10-11-2023 14:21-0400 Heart rate 65 /min Myron Yocasta [facility] 10-11-2023 14:21-0400 Respiratory rate 20 /min Myron Yocasta [facility] 10-11-2023 14:21-0400 SaO2% (BldA) [Mass fraction] 95 % Myron Yocasta [facility] 10-11-2023 14:21-0400 Systolic blood pressure 144 mm[Hg] Myron Yocasta [facility] 08-10-2023 14:19-0500 Blood Pressure Location Myron Yocasta [facility] 08-10-2023 14:19-0500 Body temperature 97.88 [degF] Myron Yocasta [facility] 08-10-2023 14:19-0500 Diastolic blood pressure 70 mm[Hg] Myron Yocasta [facility] 08-10-2023 14:19-0500 Heart rate 90 /min Myron Yocasta [facility] 08-10-2023 14:19-0500 Respiratory rate 20 /min Myron Rebolledoant [facility] 08-10-2023 14:19-0500 SaO2% (BldA) [Mass fraction] 95 % Myron Yocasta [facility] 08-10-2023 14:19-0500 Systolic blood pressure 124 mm[Hg] Myron Yocasta [facility] 05-09-2023 08:04-0500 Blood Pressure Location Ansley Carrero [facility] 05-09-2023 08:04-0500 Body temperature 98.24 [degF] Ansley Carrero [facility] 05-09-2023 08:04-0500 Diastolic blood pressure 74 mm[Hg] Ansley Carrero [facility] 05-09-2023 08:04-0500 Heart rate 77 /min Ansley Carrero [facility] 05-09-2023 08:04-0500 Respiratory rate 18 /min Ansley Carrero [facility] 05-09-2023 08:04-0500 SaO2% (BldA) [Mass fraction] 96 % Ansley Carrero [facility] 05-09-2023 08:04-0500 Systolic blood pressure 120 mm[Hg] Ansley Carrero [facility] 04-26-2023 10:59-0400 Blood Pressure Location Myron Rust [facility] 04-26-2023 10:59-0400 Body temperature 98.6 [degF] Myron Yocasta [facility] 04-26-2023 10:59-0400 Diastolic blood pressure 70 mm[Hg] Myron Yocasta [facility] 04-26-2023 10:59-0400 Heart rate 78 /min Myron Yocasta [facility] 04-26-2023 10:59-0400 Respiratory rate 18 /min Myron Yocasta [facility] 04-26-2023 10:59-0400 SaO2% (BldA) [Mass fraction] 98 % Myron Yocasta [facility] 04-26-2023 10:59-0400 Systolic blood pressure 128 mm[Hg] Myron Yocasta [facility] 03-18-2023 11:51-0400 Blood Pressure Location Myron Yocasta [facility] 03-18-2023 11:51-0400 Body temperature 97.7 [degF] Myron Yocasta [facility] 03-18-2023 11:51-0400 Diastolic blood pressure 64 mm[Hg] Myron Yocasta [facility] 03-18-2023 11:51-0400 Heart rate 78 /min Myron Yocasta [facility] 03-18-2023 11:51-0400 Respiratory rate 16 /min Myron Yocasta [facility] 03-18-2023 11:51-0400 SaO2% (BldA) [Mass fraction] 94 % Myron Rust [facility] 03-18-2023 11:51-0400 Systolic blood pressure 122 mm[Hg] Myron Rust [facility] 10-15-2022 05:30-0400 Diastolic blood pressure 75 mm[Hg] Demetra Cruz MD Work Phone: [employer] 10-15-2022 05:30-0400 Heart rate 98 /min Demetra Cruz MD Work Phone: [employer] 10-15-2022 05:30-0400 Respiratory rate 21 /min Demetra Cruz MD Work Phone: [employer] 10-15-2022 05:30-0400 Systolic blood pressure 119 mm[Hg] Demetra Cruz MD Work Phone: [employer] 10-15-2022 05:15-0400 SaO2% (BldA) [Mass fraction] 89 % Demetra Cruz MD Work Phone: [employer] 10-14-2022 21:50-0400 Body height 170.2 cm Demetra Cruz MD Work Phone: [employer] 10-14-2022 21:50-0400 Body mass index (BMI) [Ratio] 51.22 kg/m2 Demetra Cruz MD Work Phone: [employer] 10-14-2022 21:50-0400 Body temperature 98.1 [degF] Demetra Cruz MD Work Phone: [employer] 10-14-2022 21:50-0400 Body weight 148.33 kg Demetra Cruz MD Work Phone: [employer] 10-13-2022 08:55-0400 Blood Pressure Location Carmen Haley [facility] 10-13-2022 08:55-0400 Diastolic blood pressure 76 mm[Hg] Carmen Marksa [facility] 10-13-2022 08:55-0400 Heart rate 79 /min Carmen Marksa [facility] 10-13-2022 08:55-0400 SaO2% (BldA) [Mass fraction] 93 % Carmen Marksa [facility] 10-13-2022 08:55-0400 Systolic blood pressure 128 mm[Hg] Carmen Marksa [facility] 09-29-2022 11:33-0400 Blood Pressure Location Carmen Marksa [facility] 09-29-2022 11:33-0400 Diastolic blood pressure 72 mm[Hg] Carmen Marksa [facility] 09-29-2022 11:33-0400 Heart rate 90 /min Carmen Marksa [facility] 09-29-2022 11:33-0400 SaO2% (BldA) [Mass fraction] 93 % Cramen Marksa [facility] 09-29-2022 11:33-0400 Systolic blood pressure 128 mm[Hg] Carmen Marksa [facility] 09-24-2022 14:40-0400 Blood Pressure Location Lupis farmbuy [facility] 09-24-2022 14:40-0400 Body temperature 97.16 [degF] Lupis BROWN [facility] 09-24-2022 14:40-0400 Diastolic blood pressure 82 mm[Hg] Lupis BROWN [facility] 09-24-2022 14:40-0400 Heart rate 83 /min Lupis SCHWARTZ [facility] 09-24-2022 14:40-0400 Respiratory rate 24 /min Lupis SCHWARTZ [facility] 09-24-2022 14:40-0400 SaO2% (BldA) [Mass fraction] 92 % Lupis SCHWARTZ [facility] 09-24-2022 14:40-0400 Systolic blood pressure 106 mm[Hg] Lupis SCHWARTZ [facility] 09-22-2022 08:08-0400 Blood Pressure Location Carmen Haley [facility] 09-22-2022 08:08-0400 Diastolic blood pressure 78 mm[Hg] Carmen Haley [facility] 09-22-2022 08:08-0400 Heart rate 72 /min Carmen Haley [facility] 09-22-2022 08:08-0400 SaO2% (BldA) [Mass fraction] 94 % Carmen Haley [facility] 09-22-2022 08:08-0400 Systolic blood pressure 136 mm[Hg] Carmen Haley [facility] 09-14-2022 11:55-0400 Heart rate 79 /min DO Joo Rachel Work Phone: [facility] 09-14-2022 11:55-0400 Respiratory rate 20 /min DO Joo Rachel Work Phone: [facility] 09-14-2022 08:41-0400 SaO2% (BldA) [Mass fraction] 95 % DO Joo Rachel Work Phone: [facility] 09-14-2022 07:36-0400 Diastolic blood pressure 85 mm[Hg] DO Joo Rachel Work Phone: [facility] 09-14-2022 07:36-0400 Systolic blood pressure 134 mm[Hg] DO Joo Rachel Work Phone: [facility] 09-14-2022 05:21-0400 Body weight 153.9 kg DO Joo Rachel Work Phone: [facility] 09-14-2022 03:46-0400 Body temperature 98.1 [degF] DO Joo Rachel Work Phone: [facility] 09-13-2022 15:35-0400 Body height 160.02 cm DO Joo Rachel Work Phone: [facility] 09-11-2022 20:33-0500 Inhaled oxygen flow rate 2 L/min DO Joo Rachel Work Phone: [facility] 09-10-2022 14:03-0500 Diastolic blood pressure 57 mm[Hg] [facility] 09-10-2022 14:03-0500 Heart rate 86 /min [facility] 09-10-2022 14:03-0500 Inhaled oxygen flow rate 2 L/min [facility] 09-10-2022 14:03-0500 Respiratory rate 20 /min [facility] 09-10-2022 14:03-0500 SaO2% (BldA) [Mass fraction] 98 % [facility] 09-10-2022 14:03-0500 Systolic blood pressure 117 mm[Hg] [facility] 09-10-2022 11:11-0500 Body height 160.02 cm [facility] 09-10-2022 11:11-0500 Body temperature 97.6 [degF] [facility] 09-10-2022 11:11-0500 Body weight 159 kg [facility] 09-06-2022 11:23-0500 Blood Pressure Location Lupis SCHWARTZ [facility] 09-06-2022 11:23-0500 Body temperature 97.16 [degF] Lupis [employer] [facility] 09-06-2022 11:23-0500 Diastolic blood pressure 80 mm[Hg] Lupis [employer]buy [facility] [employer] 09-06-2022 11:23-0500 Heart rate 83 /min Lupis [employer] [facility] [employer] 09-06-2022 11:23-0500 Respiratory rate 28 /min [employer] [facility] [place] 09-06-2022 11:23-0500 SaO2% (BldA) [Mass fraction] 94 % [employer] [facility] 09-06-2022 11:23-0500 Systolic blood pressure 138 mm[Hg] Lupis [employer] [facility] 08-20-2022 15:03-0500 Diastolic blood pressure 86 mm[Hg] [employer] [facility] 08-20-2022 15:03-0500 Mean blood pressure 114 mm[Hg] Lupis [employer] [facility] 08-20-2022 15:03-0500 Systolic blood pressure 170 mm[Hg] Lupis [employer] [facility] 08-20-2022 13:59-0500 Blood Pressure Location Lupis [employer] [facility] 08-20-2022 13:59-0500 Body temperature 96.98 [degF] Lupis [employer] [facility] [place] 08-20-2022 13:59-0500 Diastolic blood pressure 102 mm[Hg] Lupis [employer] [facility] 08-20-2022 13:59-0500 Heart rate 77 /min Lupis SCHWARTZ [facility] 08-20-2022 13:59-0500 Respiratory rate 28 /min Lupis SCHWARTZ [facility] 08-20-2022 13:59-0500 SaO2% (BldA) [Mass fraction] 97 % Lupis SCHWARTZ [facility] 08-20-2022 13:59-0500 Systolic blood pressure 178 mm[Hg] Lupis SCHWARTZ [facility] 12-30-2021 11:01-0400 Blood Pressure Location Parish RUBIO [facility] [employer] 12-30-2021 11:01-0400 Body temperature 98.42 [degF] Parish RUBIO [facility] [place] 12-30-2021 11:01-0400 Diastolic blood pressure 90 mm[Hg] Parish RUBIO [facility] [place] 12-30-2021 11:01-0400 Heart rate 73 /min Parish RUBIO [facility] [place] 12-30-2021 11:01-0400 SaO2% (BldA) [Mass fraction] 96 % Parish RUBIO [facility] [place] 12-30-2021 11:01-0400 Systolic blood pressure 124 mm[Hg] Parishdaron RUBIO [facility] [place] 07-09-2021 08:54-0500 Body height 167.6 cm [employer] Work Phone: [employer] 07-09-2021 08:54-0500 Body mass index (BMI) [Ratio] 55.17 kg/m2 [employer] Work Phone: [employer] 07-09-2021 08:54-0500 Body weight 155.04 kg [employer] Work Phone: [employer] 07-02-2021 09:46-0500 Body height 167.6 cm [employer] Work Phone: [employer] 07-02-2021 09:46-0500 Body mass index (BMI) [Ratio] 56.27 kg/m2 [employer] Work Phone: [employer] 07-02-2021 09:46-0500 Body weight 158.12 kg [employer] Work Phone: [employer] 03-17-2020 12:10-0400 BP Diastolic 84 mm[Hg] [facility] [place] 03-17-2020 12:10-0400 BP Systolic 133 mm[Hg] [facility] [place] 03-17-2020 12:10-0400 Pulse (Heart Rate) 62 /min [facility] [place] 03-17-2020 12:10-0400 Pulse Oximetry 99 % [facility] [place] 03-17-2020 12:10-0400 Respiratory Rate 18 /min [facility] [place] 03-17-2020 11:39-0400 Body Temperature 98.4 [degF] [facility] [place] 03-17-2020 08:43-0400 BMI (Body Mass Index) 51.84 kg/m2 [facility] [place] 03-17-2020 08:43-0400 Body weight 150.14 kg Glenn Malik [facility] 03-17-2020 08:43-0400 Height 170.2 cm [facility] 09-07-2019 13:09-0500 Pulse Oximetry 97 % [facility] [place] Encounters Encounter Date Encounter Type Care Provider Facility Start: 03-05-2025 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, 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 Myron Rust Facility:[facility] Start: 02-04-2025 End: 02-04-2025 ambulatory Myron Rust Facility:[facility] Start: 02-04-2025 End: 02-04-2025 Patient encounter procedure Myron Rust [facility] Start: 01-29-2025 End: 01-29-2025 ambulatory AISHA Hernandez Facility:[facility] Start: 01-24-2025 End: 01-24-2025 Emergency department patient visit Oneal Newman Facility:[facility] Start: 01-21-2025 End: 01-21-2025 ambulatory Calvin Palmer MD Facility:[facility] Start: 01-07-2025 End: 01-07-2025 ambulatory Myron Rust Facility:[facility] Start: 01-07-2025 End: 01-07-2025 Patient encounter procedure Myron Rust [facility] Start: 01-02-2025 End: 01-02-2025 Lab Drop off Myron Rust [facility] Start: 01-02-2025 End: 01-02-2025 ambulatory Myron Rust Facility:[facility] Start: 01-02-2025 End: 01-02-2025 Patient encounter procedure Myron Rust [facility] [place] Start: 01-01-2025 End: 01-01-2025 ambulatory Rick Hernandez Facility:[facility] Start: 01-01-2025 End: 01-01-2025 Patient encounter procedure Rick Hernandez [facility] Start: 12-31-2024 End: 01-31-2025 ambulatory Myron MachadoFranco Yocasta Facility:CD:[id number] Start: 12-27-2024 End: 12-29-2024 Evaluation and management of inpatient Abisai Kaur Facility:[facility] Start: 12-27-2024 Emergency department patient visit Whit Simms Facility:[facility] Start: 12-27-2024 End: 12-29-2024 Evaluation and management of inpatient Abisai Kaur III [facility] Start: 12-19-2024 End: 12-19-2024 ambulatory Myron Rust Facility:[facility] Start: 12-19-2024 End: 12-19-2024 Patient encounter procedure Myron LFranco RebolledoYocasta [facility] Start: 12-19-2024 End: 12-19-2024 Lab Drop off Myron L. Yocasta [facility] Start: 12-19-2024 End: 12-19-2024 ambulatory Myron L. Yocasta Facility:[facility] Start: 12-19-2024 End: 12-19-2024 Patient encounter procedure Myron L. Yocasta [facility] [place] Start: 11-27-2024 End: 11-27-2024 ambulatory Myron L. Yocasta Facility:[facility] Start: 11-27-2024 End: 11-27-2024 Patient encounter procedure Myron L. Yocasta [facility] [place] Start: 11-07-2024 End: 11-07-2024 Office outpatient new 60 minutes Coco Dean MD Work Phone: [facility] Comment on above: Gastroesophageal ref lux disease, unspecified whether esophagitis present (Primary Dx); Morbid obesity with BMI of 50.0-59.9, adult; BRENDA (obstructive sleep apnea); Type 2 diabetes mellitus without complication, without long-term current use of insulin Start: 11-07-2024 ambulatory Coco DEAN [facility] Start: 10-29-2024 End: 10-29-2024 ambulatory Calvin Palmer MD Facility: [facility] Start: 09-12-2024 End: 09-12-2024 Lab Drop off Myron Rust [facility] Start: 09-12-2024 End: 09-12-2024 ambulatory Myron L. Yocasta Facility:[facility] Start: 08-29-2024 End: 08-29-2024 ambulatory Myron L. Yocasta Facility: [place] Start: 08-29-2024 End: 08-29-2024 Patient encounter procedure Myron Rebolledoant [facility] [place] Start: 07-23-2024 End: 07-23-2024 ambulatory Calvin Palmer MD Facility: [facility] Start: 07-18-2024 End: 07-18-2024 ambulatory Myron L. Yocasta Facility: [place] Start: 07-18-2024 End: 07-18-2024 Patient encounter procedure Myron Machado. Yocasta [facility] [place] Start: 07-13-2024 End: 07-13-2024 Lab Drop off Myron Rust [facility] Start: 07-13-2024 End: 07-13-2024 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, 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[employer] Myron Rust Facility:[facility] Start: 07-13-2024 End: 07-13-2024 Patient encounter procedure Myron Rust [facility] [place] Start: 07-11-2024 End: 07-11-2024 ambulatory Myron Rust Facility:[facility] Start: 07-11-2024 End: 07-11-2024 Patient encounter procedure Myron Rebolledoant [facility] [place] Start: 06-05-2024 End: 06-05-2024 ambulatory AISHA Hernandez Facility:[facility] Start: 06-05-2024 End: 06-05-2024 Patient encounter procedure Rick Hernandez [facility] Start: 05-21-2024 End: 05-21-2024 ambulatory Calvin Palmer MD Facility: [facility] Start: 02-22-2024 End: 02-22-2024 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, 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[employer] Myron Rust Facility:[facility] Start: 02-22-2024 End: 02-22-2024 Patient encounter procedure Myron JeannetteFranco Rust [facility] [place] Start: 02-10-2024 End: 09-01-2024 Pre-admission assessment Walker Phillip [facility] Start: 02-06-2024 End: 02-06-2024 ambulatory Calvin Palmer MD Facility: [facility] Start: 01-27-2024 End: 01-27-2024 ambulatory Cardoso Nitinal Sarmini Facility:[facility] Start: 01-27-2024 End: 01-27-2024 Patient encounter procedure Walker Quirozi [facility] Start: 12-23-2023 End: 12-23-2023 ambulatory Walker Quirozi Facility:[facility] Start: 12-23-2023 End: 12-23-2023 Patient encounter procedure Walker Quirozi [facility] Start: 12-19-2023 End: 12-21-2023 ambulatory KAMALJIT Kathy [facility] Start: 12-06-2023 End: 12-06-2023 ambulatory Alirio Ramirez Facility:[facility] Start: 12-06-2023 End: 12-06-2023 Patient encounter procedure Alirio Ramirez [facility] Start: 11-25-2023 End: 11-25-2023 ambulatory LUIS, 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[employer] Myron Rust Facility:[facility] Start: 11-25-2023 End: 11-25-2023 Patient encounter procedure Myron Rust [facility] [place] Start: 11-17-2023 End: 11-17-2023 [facility] Start: 11-10-2023 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, 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[employer]TER [employer] Myron Rust Facility:[facility] Start: 11-08-2023 End: 11-08-2023 ambulatory Alirio Ramirez Facility:[facility] Start: 11-08-2023 End: 11-08-2023 Patient encounter procedure Alirio Ramirez [facility] Start: 11-02-2023 End: 11-02-2023 ambulatory Walker Phillip Facility:[facility] Start: 11-02-2023 End: 11-02-2023 Patient encounter procedure Walker Phillip [facility] Start: 10-26-2023 End: 10-26-2023 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, 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[employer]TER [employer] Myron Rust [facility] Start: 10-26-2023 End: 10-26-2023 Patient encounter procedure Myron Rust [facility] [place] Start: 10-25-2023 End: 10-25-2023 ambulatory XXXX NONE Facility:[facility] Start: 10-25-2023 End: 10-25-2023 Patient encounter procedure Alirio Ramirez [facility] Start: 10-11-2023 End: 10-11-2023 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, 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[employer] Myron Rust Facility:[facility] Start: 10-11-2023 End: 10-11-2023 Patient encounter procedure Myron Rust [facility] [place] Start: 10-06-2023 End: 10-06-2023 Emergency department patient visit [facility] Start: 08-30-2023 End: 09-01-2023 ambulatory [facility] Start: 08-24-2023 End: 08-27-2023 ambulatory [facility] Start: 08-10-2023 End: 08-12-2023 ambulatory [facility] Start: 08-10-2023 End: 08-12-2023 Subsequent hospital visit by physician Krysten Additional Xray At [facility] Comment on above: Right hip pain Start: 08-10-2023 End: 08-10-2023 Patient encounter procedure Myron Rust [facility] [place] Start: 07-21-2023 End: 07-21-2023 Subsequent hospital visit by physician Arlene Dickens [facility] Start: 07-20-2023 End: 07-20-2023 Subsequent hospital visit by physician Monico Sheppard PTA [facility] Therapy Start: 07-14-2023 End: 07-14-2023 Subsequent hospital visit by physician Arlene Dickens [facility] Therapy Start: 07-11-2023 End: 07-11-2023 [facility] Start: 07-08-2023 End: 07-08-2023 Subsequent hospital visit by physician Arlene Dickens [facility] Therapy Start: 07-07-2023 End: 07-07-2023 [facility] Start: 07-06-2023 End: 07-06-2023 Subsequent hospital visit by physician Arlene Dickens [facility] Therapy Start: 07-06-2023 [facility] Start: 06-21-2023 End: 06-21-2023 [facility] Start: 05-10-2023 End: 06-14-2023 Pre-admission assessment Justyna Grijalva [facility] Start: 05-09-2023 End: 05-09-2023 Patient encounter procedure Ansley Carrero [facility] Start: 04-29-2023 End: 04-29-2023 Emergency department patient visit [facility] Start: 04-26-2023 End: 04-26-2023 Patient encounter procedure [facility] Start: 03-18-2023 End: 03-18-2023 Patient encounter procedure Myron Rust [facility] [place] Start: 12-01-2022 End: 12-03-2022 [facility] Comment on above: Fatigue, unspecified type; Screening, lipid Start: 11-26-2022 End: 11-26-2022 Patient encounter procedure Myron Rust [facility] [place] Start: 10-19-2022 ambulatory Facility:[id number] Start: 10-19-2022 End: 01-18-2023 Recurring Carmen Haley [facility] Start: 10-19-2022 End: 10-21-2022 Subsequent hospital visit by physician Paul Additional Xray At [facility] Radiology Comment on above: Left hand weakness Weakness of both leg s Start: 10-14-2022 End: 10-15-2022 Emergency department patient visit Demetra Cruz MD Work Phone: [facility] ED Comment on above: Alcohol abuse (Prima ry Dx) Start: 10-13-2022 End: 10-13-2022 Subsequent hospital visit by physician Mulu Dean SIGNS AND DISPLAYS SALESPERSON - [employer] Work Phone: [facility] Laboratory Start: 10-13-2022 End: 10-14-2022 Pre-admission assessment Carmen Haley [facility] Start: 10-06-2022 End: 10-06-2022 Lab Drop off Lupis SCHWARTZ [facility] Start: 10-06-2022 End: 10-06-2022 Patient encounter procedure L[facility]Z [facility] Start: 09-29-2022 End: 09-29-2022 Lab Drop off Carmen Haley [facility] Start: 09-29-2022 End: 09-30-2022 Pre-admission assessment Carmen MolinaFranco Sudha [facility] Start: 09-27-2022 End: 09-27-2022 Lab Drop off Myron Rust [facility] Start: 09-27-2022 End: 09-27-2022 Patient encounter procedure Myron Rust [facility] [place] Start: 09-24-2022 End: 09-24-2022 Patient encounter procedure [facility]WARTZ [facility] Start: 09-22-2022 End: 09-22-2022 Patient encounter procedure Carmen Haley [facility] Start: 09-13-2022 ambulatory Facility:U Start: 09-10-2022 End: 09-14-2022 Evaluation and management of inpatient Obaydah M Daromar Facility:[facility] Start: 09-10-2022 ambulatory Facility:[id number] Start: 09-10-2022 End: 09-14-2022 Evaluation and management of inpatient [facility] Work Phone: Start: 09-06-2022 End: 09-06-2022 Lab Drop off Lupis SCHWARTZ [facility] Start: 09-06-2022 End: 09-06-2022 Patient encounter procedure Lupis Kathy EFREN [facility] [place] Start: 08-27-2022 End: 08-27-2022 Subsequent hospital visit by physician [facility] Echo Room [facility] ECHO Comment on above: Hypertension, unspec ified type; Bilateral leg edema Start: 08-20-2022 End: 08-20-2022 Lab Drop off Lupis SCHWARTZ [facility] Start: 08-20-2022 End: 08-20-2022 Patient encounter procedure Lupis Chavez EFREN [facility] [place] Start: 12-30-2021 End: 12-30-2021 Patient encounter procedure Parish RUBIO [facility] [place] Start: 07-13-2021 End: 07-13-2021 Subsequent hospital visit by physician CAITLYN Gardner RD Work Phone: [facility] Diet and Nutrition Comment on above: Arrived Start: 07-09-2021 End: 07-09-2021 Subsequent hospital visit by physician [facility] Work Phone: [facility] Start: 07-02-2021 End: 07-02-2021 Subsequent hospital visit by physician [facility] Work Phone: [employer] Start: 05-21-2021 End: 05-23-2021 Subsequent hospital visit by physician [facility] Additional Xray At [facility] Radiology Comment on above: SOB (shortness of br eath); Obstructive sleep apnea (adult) (pediatric); Moderate persistent asthma without complication Start: 05-21-2021 End: 05-23-2021 Subsequent hospital visit by physician [facility] Pulmonary Function Rm [facility] PFT Comment on above: SOB (shortness of br eath); Obstructive sleep apnea syndrome; Moderate persistent asthma without complication; Tobacco abuse Start: 03-17-2020 End: 03-17-2020 Subsequent hospital visit by physician Glenn Malik Work Phone: [facility] Start: 03-17-2020 End: 03-17-2020 Subsequent hospital visit by physician [facility] Covid19 Pat Screening Schedule [facility] PRE ADMIT Comment on above: Arrived Start: 02-19-2020 End: 02-21-2020 Subsequent hospital visit by physician [facility] Ultrasound Room [facility] Ultrasound Comment on above: Hypertrophy of uteru s; Right lower quadrant pain Start: 02-07-2020 End: 02-09-2020 Subsequent hospital visit by physician [facility] Cat Scan Room [facility] CT Scan Comment on above: RLQ abdominal pain Start: 09-07-2019 End: 09-07-2019 Subsequent hospital visit by physician [facility] Pulmonary Function Rm [facility] PFT Comment on above: SOB (shortness of br eath) Start: 09-06-2019 End: 09-08-2019 Subsequent hospital visit by physician [facility] Dig Rad 1 [facility] Laboratory Comment on [...] unilateral with pelvis 2-3 views Myron Rust SIGNS AND DISPLAYS SALESPERSON - [employer] Work Phone: Start: 08-10-2023 Comprehensive metabo lic panel Myron Rust SIGNS AND DISPLAYS SALESPERSON - [employer] Work Phone: Start: 08-10-2023 Lipid panel Myron Fair nt SIGNS AND DISPLAYS SALESPERSON - [employer] Work Phone: Start: 08-10-2023 Urine albumin quantitative Myron Rust SIGNS AND DISPLAYS SALESPERSON - [employer] Work Phone: Start: 12-01-2022 Dup-scan xtr veins [...] Start: 10-13-2022 Creatine kinase total K althea Olverar SIGNS AND DISPLAYS SALESPERSON - [employer] Work Phone: Start: 09-10-2022 Respiratory Panel (PCR) DO Joo Ramos Work Phone: Start: 09-10-2022 Plain chest X-ray Start: 05-21-2021 Radiologic exam ches t 2 views Mulu Olverar SIGNS AND DISPLAYS SALESPERSON - [employer] Work Phone: Start: 03-17-2020 Nebulizer therapy Glenn P Helena Work Phone: Start: 03-17-2020 COVID-19 Cameron Jau regui Work Phone: Start: 03-17-2020 Colonoscopy Krysten briggs Start: 03-17-2020 Colonoscopy Lupis Lee Start: 02-19-2020 Us pelvic nonobstetr ic real-time image complete Mulu Prafullesleeiller Work Phone: Start: 02-07-2020 Ct abdomen & pelvis w/contrast material [facility] Work Phone: Start: 02-07-2020 Assay of urea nitrog en quantitative [facility] Work Phone: Start: 09-07-2019 NEBULIZER TX INTERMITTENT [...] Work Phone: Start: 09-06-2019 Lipid panel Joselito meadows Work Phone: Start: 09-06-2019 PATIENT FASTING? Joselito Hsu Work Phone: Arthroplasty of knee Carmen cm Eye/lens implant bilat Parish RUBIO L foot bunion/reconstruction Parish RUBIO Plan of Treatment Date Care Activity Detail Author Start: 2037 RSV VACCINE (1 - 1-dose 75+ series) RSV VACCINE (1 - 1-dose 75+ series) [facility] Start: 04-10-2030 DTaP/Tdap/Td vaccine (3 - Td or Tdap) DTaP/Tdap/Td vaccine (3 - Td or Tdap) [facility] Start: 04-10-2030 Tetanus vaccination TETANUS [facility] Start: 03-17-2030 Screening for malignant neoplasm of colon [facility] Start: 11-16-2027 Pneumococcal 0-64 years Vaccine (2 of 2 - PPSV23) Pneumococcal 0-64 years Vaccine (2 of 2 - PPSV23) [facility] Start: 11-07-2024 End: 11-07-2025 B12/folate level B12 & FOLATE Lab Routine Gastroesophageal reflux disease, unspecified whether esophagitis present Morbid obesity with BMI of 50.0-59.9, adult BRENDA (obstructive sleep apnea) Type 2 diabetes mellitus without complication, without long-term current use of insulin Expected: 11/07/2024, Expires: 11/07/2025 [facility] Comment on above: Expected: 11/07/2024, Expires: Start: 11-07-2024 End: 11-07-2025 Basic metabolic 2000 panel - Serum or Plasma BASIC METABOLIC PANEL Lab Routine Gastroesophageal reflux disease, unspecified whether esophagitis present Morbid obesity with BMI of 50.0-59.9, adult BRENDA (obstructive sleep apnea) Type 2 diabetes mellitus without complication, without long-term current use of insulin Expected: 11/07/2024, Expires: 11/07/2025 [facility] Comment on above: Expected: 11/07/2024, Expires: Start: 11-07-2024 End: 11-07-2025 CBC,PLATELETS CBC,PLATELETS Lab Routine Gastroesophageal reflux disease, unspecified whether esophagitis present Morbid obesity with BMI of 50.0-59.9, adult BRENDA (obstructive sleep apnea) Type 2 diabetes mellitus without complication, without long-term current use of insulin Expected: 11/07/2024, Expires: 11/07/2025 [facility] Comment on above: Expected: 11/07/2024, Expires: Start: 11-07-2024 End: 11-07-2025 DIAGNOSTIC UPPER ENDOSCOPY DIAGNOSTIC UPPER ENDOSCOPY GI/Bronch Routine Gastroesophageal reflux disease, unspecified whether esophagitis present Expected: 11/07/2024, Expires: 11/07/2025 [facility] Comment on above: Expected: 11/07/2024, Expires: Start: 11-07-2024 End: 11-07-2025 Ferritin [Mass/volume] in Serum or Plasma FERRITIN Lab Routine Gastroesophageal reflux disease, unspecified whether esophagitis present Morbid obesity with BMI of 50.0-59.9, adult BRENDA (obstructive sleep apnea) Type 2 diabetes mellitus without complication, without long-term current use of insulin Expected: 11/07/2024, Expires: 11/07/2025 [facility] Comment on above: Expected: 11/07/2024, Expires: Start: 11-07-2024 End: 11-07-2025 Hemoglobin A1c/Hemoglobin.total in Blood HEMOGLOBIN A1C Lab Routine Gastroesophageal reflux disease, unspecified whether esophagitis present Morbid obesity with BMI of 50.0-59.9, adult BRENDA (obstructive sleep apnea) Type 2 diabetes mellitus without complication, without long-term current use of insulin Expected: 11/07/2024, Expires: 11/07/2025 [facility] Comment on above: Expected: 11/07/2024, Expires: Start: 11-07-2024 End: 11-07-2025 Hepatic function 2000 panel - Serum or Plasma HEPATIC FUNCTION PANEL Lab Routine Gastroesophageal reflux disease, unspecified whether esophagitis present Morbid obesity with BMI of 50.0-59.9, adult BRENDA (obstructive sleep apnea) Type 2 diabetes mellitus without complication, without long-term current use of insulin Expected: 11/07/2024, Expires: 11/07/2025 [facility] Comment on above: Expected: 11/07/2024, Expires: Start: 11-07-2024 End: 11-07-2025 IRON/IRON BINDING/TRANSFERRIN IRON/IRON BINDING/TRANSFERRIN Lab Routine Gastroesophageal reflux disease, unspecified whether esophagitis present Morbid obesity with BMI of 50.0-59.9, adult BRENDA (obstructive sleep apnea) Type 2 diabetes mellitus without complication, without long-term current use of insulin Expected: 11/07/2024, Expires: 11/07/2025 [facility] Comment on above: Expected: 11/07/2024, Expires: Start: 11-07-2024 End: 11-07-2025 LIPID PANEL W CALCULATED LDL LIPID PANEL W CALCULATED LDL Lab Routine Gastroesophageal reflux disease, unspecified whether esophagitis present Morbid obesity with BMI of 50.0-59.9, adult BRENDA (obstructive sleep apnea) Type 2 diabetes mellitus without complication, without long-term current use of insulin Expected: 11/07/2024, Expires: 11/07/2025 [facility] Comment on above: Expected: 11/07/2024, Expires: Start: 11-07-2024 End: 11-07-2025 Magnesium [Mass/volume] in Serum or Plasma MAGNESIUM Lab Routine Gastroesophageal reflux disease, unspecified whether esophagitis present Morbid obesity with BMI of 50.0-59.9, adult BRENDA (obstructive sleep apnea) Type 2 diabetes mellitus without complication, without long-term current use of insulin Expected: 11/07/2024, Expires: 11/07/2025 [facility] Comment on above: Expected: 11/07/2024, Expires: Start: 11-07-2024 End: 11-07-2025 PHOSPHATE, INORGANIC PHOSPHATE, INORGANIC Lab Routine Gastroesophageal reflux disease, unspecified whether esophagitis present Morbid obesity with BMI of 50.0-59.9, adult BRENDA (obstructive sleep apnea) Type 2 diabetes mellitus without complication, without long-term current use of insulin Expected: 11/07/2024, Expires: 11/07/2025 [facility] Comment on above: Expected: 11/07/2024, Expires: Start: 11-07-2024 End: 11-07-2025 PROTIME-INR PROTIME-INR Lab Routine Gastroesophageal reflux disease, unspecified whether esophagitis present Morbid obesity with BMI of 50.0-59.9, adult BRENDA (obstructive sleep apnea) Type 2 diabetes mellitus without complication, without long-term current use of insulin Expected: 11/07/2024, Expires: 11/07/2025 [facility] Comment on above: Expected: 11/07/2024, Expires: Start: 11-07-2024 End: 11-07-2025 PTH INTACT PTH INTACT Lab Routine Gastroesophageal reflux disease, unspecified whether esophagitis present Morbid obesity with BMI of 50.0-59.9, adult BRENDA (obstructive sleep apnea) Type 2 diabetes mellitus without complication, without long-term current use of insulin Expected: 11/07/2024, Expires: 11/07/2025 [facility] Comment on above: Expected: 11/07/2024, Expires: Start: 11-07-2024 End: 11-07-2025 TSH W/FT4 REFLEX TSH W/FT4 REFLEX Lab Routine Gastroesophageal reflux disease, unspecified whether esophagitis present Morbid obesity with BMI of 50.0-59.9, adult BRENDA (obstructive sleep apnea) Type 2 diabetes mellitus without complication, without long-term current use of insulin Expected: 11/07/2024, Expires: 11/07/2025 [facility] Comment on above: Expected: 11/07/2024, Expires: Start: 11-07-2024 End: 11-07-2025 VITAMIN D (25-HYDROXY,TOTAL) VITAMIN D (25-HYDROXY,TOTAL) Lab Routine Gastroesophageal reflux disease, unspecified whether esophagitis present Morbid obesity with BMI of 50.0-59.9, adult BRENDA (obstructive sleep apnea) Type 2 diabetes mellitus without complication, without long-term current use of insulin Expected: 11/07/2024, Expires: 11/07/2025 [facility] Comment on above: Expected: 11/07/2024, Expires: Start: 10-27-2024 DTaP/Tdap/Td vaccine (2 - Td) DTaP/Tdap/Td vaccine (2 - Td) [place], [place] Start: 03-04-2024 COVID-19 VACCINE ( season) COVID-19 VACCINE ( season) [facility] Start: 07-21-2023 End: 07-21-2023 Patient encounter procedure 07/21/2023 10:30 AM EST Appointment [facility] [address] [place] [address] Arlene Dickens [facility]ir Meg[facility] Comment on above: [facility] Start: 07-19-2023 End: 07-19-2023 Patient encounter procedure 07/19/2023 10:30 AM EST Appointment [facility] [address] [place] [address] Ana Blank, PT [facility] Comment on above: [facility] Start: 07-14-2023 End: 07-14-2023 Patient encounter procedure 07/14/2023 10:30 AM EST Appointment [facility] [address] [place] [address] Arlene Dickens [facility] Comment on above: [facility] Start: 07-11-2023 End: 07-11-2023 Patient encounter procedure 07/11/2023 10:30 AM EST Appointment [facility] [address] [facility] [place] [address] Ana Blank, PT [facility] Comment on above: [facility] Start: 12-15-2022 End: 12-15-2022 Patient encounter procedure 12/15/2022 Office Visit Gastroenterology Racheal Braden, SIGNS AND DISPLAYS SALESPERSON - [employer] [address] [address] [facility] Start: 2022 Respiratory Syncytial Virus (RSV) or age 60 yrs+ (1 - 1-dose 60+ series) Respiratory Syncytial Virus (RSV) or age 60 yrs+ (1 - 1-dose 60+ series) [facility] Start: 10-26-2022 End: 10-26-2022 Patient encounter procedure 10/26/2022 Office Visit Cardiology Joselito Hsu MD [address], [place] [address] [facility] [employer] Start: 09-14-2022 [facility] Start: 09-11-2022 Comprehensive metabolic 2000 panel - Serum or Plasma [facility] Start: 09-11-2022 [facility] Start: 09-10-2022 [facility] Start: 09-10-2022 [facility] Start: 09-10-2022 Referral to Samples And Repairs Preparer [facility] Start: 09-10-2022 End: 09-10-2022 [facility] Start: 09-10-2022 Hospital admission [facility] Start: 09-10-2022 [facility] Start: 09-08-2021 End: 09-08-2021 Patient encounter procedure 09/08/2021 Appointment Diabetes Services [facility] Diabetic Education Start: 07-13-2021 End: 07-13-2021 Patient encounter procedure 07/13/2021 Appointment IP Unit Case [place], ALF, LD [facility] Diet and Nutrition Start: 07-09-2021 End: 07-09-2021 Patient encounter procedure 07/09/2021 Appointment Diabetes Services [facility] Diabetic Education Start: 07-06-2021 End: 07-06-2021 Patient encounter procedure 07/06/2021 Appointment IP Unit Case [facility], ALF, LD [facility] Diet and Nutrition Start: 04-10-2021 Pneumococcal 0-64 years Vaccine (2 - PCV) Pneumococcal 0-64 years Vaccine (2 - PCV) [facility] Start: 04-10-2021 Pneumococcal vaccination PNEUMOCOCCAL VACCINE SERIES (2 of 2 - PCV) [facility] Start: 04-07-2021 COVID-19 Vaccine (3 - Booster for Pfizer series) COVID-19 Vaccine (3 - Booster for Pfizer series) [facility] Start: 02-06-2021 Creatinine measurement Creatinine monitoring [facility] Start: 09-29-2020 Breast cancer screen Breast cancer screen [place], [place] Start: 09-29-2020 Screening for malignant neoplasm of breast Breast cancer screen [facility] Start: 09-05-2020 A1C test (Diabetic or Prediabetic) A1C test (Diabetic or Prediabetic) [place] Start: 09-05-2020 Creatinine monitoring Creatinine monitoring [place] Start: 09-05-2020 HbA1c (Bld) [Mass fraction] A1C test (Diabetic or Prediabetic) [place] Start: 09-05-2020 Hemoglobin A1c measurement A1C test (Diabetic or Prediabetic) [facility] Start: 09-05-2020 Lipid panel [facility] Start: 09-05-2020 Lipid screen Lipid screen [place] Start: 09-05-2020 Potassium monitoring Potassium monitoring [facility] Start: 09-03-2020 Shingles Vaccine (2 of 3) Shingles Vaccine (2 of 3) [facility] Start: 09-03-2020 Shingles vaccine (3 of 3) Shingles vaccine (3 of 3) [facility] Start: 03-31-2020 End: 03-31-2020 Office Visit 03/31/2020 Office Visit General Surgery Glenn Malik MD [address] [place] [address] [facility] 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 - [place] Start: 03-04-2020 Influenza vaccination Flu vaccine (#1) [place] Start: 02-28-2020 End: 02-28-2020 Office Visit 02/28/2020 Office Visit General Surgery Glenn Malik MD [address] [place] [address] [facility] 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 - [place] Start: 09-30-2019 Screening for malignant neoplasm of breast MAMMOGRAM SCREENING DISCUSSION [facility] Start: 09-07-2019 End: 09-07-2019 Appointment 09/07/2019 Appointment Pulmonary Function Testing [facility] Start: 06-19-2019 Creatinine monitoring Creatinine monitoring [place], [place] Start: 06-19-2019 Potassium monitoring Potassium monitoring [place] Start: 2012 Colon cancer screen colonoscopy Colon cancer screen colonoscopy [place] Start: 2012 Screening for malignant neoplasm of colon Colon cancer screen colonoscopy [place] Start: 2012 Shingles Vaccine (1 of 2) Shingles Vaccine (1 of 2) [place] Start: 11-16-2007 Screening for malignant neoplasm of colon [facility] Start: 2002 Lipid panel LIPID SCREENING [facility] Start: 1992 Screening for malignant neoplasm of cervix [facility] Start: 11-16-1983 Cervical cancer screen Cervical cancer screen [place], [place] Start: 11-16-1983 Screening for malignant neoplasm of cervix [facility] Start: 1980 Hepatitis C screening Hepatitis C screen [facility] [employer] Start: 1977 HIV screen HIV screen [place], [place] Start: 1977 HIV screening [facility] [employer] Start: 1974 Depression Screen Depression Screen [facility] [employer] Start: 1972 Lipid screen Lipid screen [place], [place] Start: 1962 Hepatitis C screen Hepatitis C screen [place], [place] Start: 1962 Hepatitis C screening [facility] Calculated LDL cholesterol level [facility] End: 03-17-2020 CEA CEA Lab Routine One Time for 1 Occurrences starting 03/17/2020 until 03/17/2020 [place] Comment on above: One Time for 1 Occurrences starting 03/04 until 03/17/2020 CEA CEA Lab Routine 03/17/2020 12:00 PM EDT [place] Cholesterol.total/Ch ol esterol in HDL [Mass Ratio] in Serum or Plasma [facility] End: 08-27-2022 Echocardiogram complete Echocardiogram complete Echocardiography Routine Hypertension, unspecified type Bilateral leg edema 1 Occurrences starting 08/27/2022 until 08/27/2022 [employer] Phone: Comment on above: 1 Occurrences starting 08/27/2022 until 08/27/2022 EKG 12 Lead EKG 12 Lead ECG Routine Syncope and collapse Pre-operative clearance Essential hypertension Hyperlipidemia, unspecified hyperlipidemia type Vitamin D deficiency 09/06/2019 11:05 AM EST [facility] [place] EKG 12 Lead EKG 12 Lead ECG STAT 10/14/2022 9:44 PM EDT [employer] Phone: End: 09-07-2019 Full PFT Study With Bronchodilator Full PFT Study With Bronchodilator PFT Routine SOB (shortness of breath) 1 Occurrences starting 09/07/2019 until 09/07/2019 [facility] [place] Comment on above: 1 Occurrences starting 09/07/2019 until 09/07/2019 End: 05-21-2021 Full PFT Study With Bronchodilator Full PFT Study With Bronchodilator PFT Routine SOB (shortness of breath) Obstructive sleep apnea syndrome Moderate persistent asthma without complication Tobacco abuse 1 Occurrences starting 05/21/2021 until 05/21/2021 [employer] Work Phone: Comment on above: 1 Occurrences starting 05/21/2021 until 05/21/2021 Glucose measurement estimated from glycated hemoglobin [facility] H. PYLORI DETECTION [facility] Comment on above: Release Upon Ordering for 1 Occurrences starting 03/17/2020 Hemoglobin A1c/Hemoglobin.total in Blood [facility] End: 08-10-2023 Hemoglobin A1c/Hemoglobin.total in Blood [facility] [employer] [facility] [employer] Work Phone: Comment on above: Once for 1 Occurrences starting 08/10/19 until 08/10/2023 Oxygen therapy [Minimum Data Set] Initiate Oxygen Therapy Protocol Respiratory Care Routine Daily until discontinued starting 03/17/2020 [facility] Comment on above: Daily until discontinued starting 2019 End: 10-14-2022 Oxygen therapy [Minimum Data Set] Initiate Oxygen Therapy Protocol Respiratory Care STAT One Time for 1 Occurrences starting 10/14/2022 until 10/14/2022 [facility] [employer] Work Phone: Comment on above: One Time for 1 Occurrences starting 10/02 until 10/14/2022 Patient Education Heart Failure, Adult (DC) [facility] Work Phone: End: 08-10-2023 Patient Fasting? [place] [employer] [facility] Comment on above: Once for 1 Occurrences starting 08/10/19 until 08/10/2023 Patient referral [facility] Work Phone: Surgical Pathology Surgical Path ology Lab Routine Release Upon Ordering for 1 Occurrences starting 03/17/2020 [facility] Comment on above: Release Upon Ordering for 1 Occurrences starting 03/17/2020 End: 02-19-2020 US NON OB TRANSVAGINAL US NON OB TRANSVAGINAL Imaging Routine Hypertrophy of uterus Right lower quadrant pain 1 Occurrences starting 02/19/2020 until 02/19/2020 [facility] Comment on above: 1 Occurrences starting 02/19/2020 until 02/19/2020 US NON OB TRANSVAGINAL US NON OB TRANSVAGINAL Imaging Routine Hypertrophy of uterus Right lower quadrant pain 02/19/2020 2:36 PM EDT [facility] [place], [place] VLDL cholesterol measurement [facility] Immunizations Immunization Date Immunization Notes Care Provider Jeronimo anakika 07-11-2024 influenza, seasonal, injectable, preservative free; Translations: [Fluzone TIV PF ] Myron Rust [facility] 03-18-2023 influenza, injectabl e, quadrivalent, preservative free Myron Rust [facility] 05-11-2022 influenza virus vaccine, unspecified formulation [employer] [facility] 05-11-2022 SARS-CoV-2 (COVID-19 ) [id number] [employer] [facility] 12-15-2021 COVID-19 mRNA, Comirnaty (Pfizer) [facility] 12-15-2021 SARS-CoV-2 mRNA (gdwmwnaarkp-iipl-xnfhy se) vaccine [employer] [facility] 06-12-2021 SARS-CoV-2 (COVID-19 ) mRNA BNT-162b2 vax [employer] [facility] 05-05-2021 influenza virus vaccine, unspecified formulation [employer] [facility] 10-06-2020 SARS-CoV-2 (COVID-19 ) mRNA BNT-162b2 [employer] [facility] 09-16-2020 SARS-CoV-2 (COVID-19 ) mRNA BNT-162b2 [employer] [facility] 07-09-2020 zoster vaccine, live [facility] L [facility] [place] 04-10-2020 influenza virus vaccine, unspecified formulation Parish RUBIO [facility] 04-10-2020 pneumococcal polysaccharide vaccine, 23 valent [place] RUBIO [facility] [place] 04-10-2020 tetanus toxoid, unspecified formulation Parish RUBIO [facility] [place] 04-10-2020 zoster vaccine, live Parish Machado [employer] [facility] [place] 05-08-2019 influenza virus vaccine, unspecified formulation Parish RUBIO [facility] [place] 04-24-2018 influenza virus vaccine, unspecified formulation Parish RUBIO [facility] [place] 03-19-2018 influenza virus vaccine, unspecified formulation [facility] 12-16-2017 pneumococcal polysaccharide vaccine, 23 valent Lupis SCHWARTZ [facility] [place] 10-27-2014 tetanus toxoid, redu karen diphtheria toxoid, and acellular pertussis vaccine, adsorbed Lupis BROWN [facility] [place] Payers Date Payer Category Payer Medicaid (Managed Care) [facility] [id number] 2024 Medicaid [id number] 2023 Private Health Insurance 2022 Self-pay 2017 Private Health Insurance [facility] [place]xxxxxxxx 2017-Present [phone] [address] [place] [address] xxxxxxxxx [id number]. [id number] 2017 Private Health Insurance [id number]. [id number] 2017 Private Health Insurance [id number] 1.2.840.240262.1.13.239.2. [id number] 1962 Unknown [id number] 2.16.840.1.630639.3.579.2. 356 1962 Unknown [id number] 2.16.840.1.987407.3.579.2. 356 1962 Unknown [id number] 2.16.840.1.347818.3.579.2. 173 1962 Unknown [id number] 2.16.840.1.405057.3.579.2. 174 1962 Unknown [id number] 2.16.840.1.231909.3.579.2. 174 1962 Unknown [id number] 2.16.840.1.544834.3.579.2. 174 1962 Unknown [id number] 2.16.840.1.074015.3.579.2. 174 1962 Unknown [id number] 2.16.840.1.778626.3.579.2. 174 1962 Unknown [id number] 2.16.840.1.044599.3.579.2. 174 1962 Unknown [id number] 2.16.840.1.327376.3.579.2. 174 1962 Unknown [id number] 2.16.840.1.704465.3.579.2. 174 1962 Unknown [id number] 2.16.840.1.324246.3.579.2. 174 1962 Unknown [id number] 2.16.840.1.060957.3.579.2. 174 1962 Unknown [id number] 2.16.840.1.865750.3.579.2. 174 1962 Unknown [id number] 2.16.840.1.268979.3.579.2. 174 1962 Unknown [id number] 2.16.840.1.022698.3.579.2. 1962 Unknown [id number] 2.16.840.1.350896.3.579.2. 1962 Unknown [id number] 2.16.840.1.320299.3.579.2. 1962 Unknown [id number] 2.16.840.1.688044.3.579.2. 1962 Unknown [id number] 2.16.840.1.065686.3.579.2. 72 1962 Unknown [id number] 2.16.840.1.354432.3.579.2. 1962 Unknown [id number] 2.16.840.1.434681.3.579.2. 1962 Unknown [id number] 2.16.840.1.845121.3.579.2. 1962 Unknown [id number] 2.16.840.1.886754.3.579.2 1962 Unknown [id number] 2.16.840.1.317700.3.579.2 1962 Unknown [id number] 2.16.840.1.093237.3.579.2 1962 Unknown [id number] 2.16.840.1.730449.3.579.2 1962 Unknown [id number] 2.16.840.1.827409.3.579.2 1962 Unknown [id number] 2.16.840.1.618974.3.579. 1962 Unknown [id number] 2.16.840.1.001243.3.579. 1962 Unknown [id number] 2.16.840.1.741336.3.579. 1962 Unknown [id number] 2.16.840.1.302374.3.579. 1962 Unknown [id number] 2.16.840.1.863266.3.579. 1962 Unknown [id number] 2.16.840.1.892067.3.579.2 1962 Unknown [id number] 2.16.840.1.828363.3.579.2 1962 Unknown [id number] 2.16.840.1.798810.3.579.2 1962 Unknown [id number] 2.16.840.1.936454.3.579.2 1962 Unknown [id number] 2.16.840.1.105381.3.579.2 1962 Unknown [id number] 2.16.840.1.878911.3.579.2. 1962 Unknown [id number] 2.16.840.1.184294.3.579.2. 1962 Unknown [id number] 2.16.840.1.355382.3.579.2 1962 Unknown [id number] 2.16.840.1.233799.3.579.2. 1962 Unknown [id number] 2.16.840.1.259725.3.579.2 1962 Unknown [id number] 2.16.840.1.031914.3.579.2 1962 Unknown [id number] 2.16.840.1.725568.3.579.2 1962 Unknown [id number] 2.16.840.1.246094.3.579.2 1962 Unknown [id number] 2.16.840.1.843319.3.579.2 1962 Unknown [id number] 2.16.840.1.860887.3.579.2 1962 Unknown [id number] 2.16.840.1.619061.3.579.2 1962 Unknown [id number] 2.16.840.1.503199.3.579.2. 983 1962 Unknown [id number] 2.16.840.1.750731.3.579.2. 1962 Unknown [id number] 2.16.840.1.626611.3.579.2. 1962 Unknown [id number] 2.16.840.1.478148.3.579.2. 1962 Unknown [id number] 2.16.840.1.669792.3.579.2. 1962 Unknown [id number] 2.16.840.1.480619.3.579.2. 196 1962 Unknown [id number] 2.16.840.1.411795.3.579.2. 727 1962 Unknown [id number] 2.16.840.1.994773.3.579.2. 727 1962 Unknown [id number] 2.16.840.1.007395.3.579.2. 727 1962 Unknown [id number] 2.16.840.1.411813.3.579.2. 727 1962 Unknown [id number] 2.16.840.1.335760.3.579.2. 727 1962 Unknown [id number] 2.16.840.1.307368.3.579.2. 727 Unknown [id number] 2.16.840.1.738842.3.579.2. 531 Social History Date Type Detail Facility Start: 07-04-1979 End: 11-07-2024 Tobacco smoking status NHIS Current every day smoker [place] Start: 07-04-1979 History of tobacco use Cigarette Smo ker [place] Start: 09-06-2019 End: 11-07-2024 Cigarettes smoked current (pack per day) - Reported [place] Start: 09-06-2019 End: 11-07-2024 Alcohol intake Current drinker of alcohol (finding) [place] Start: 02-23-2018 Tobacco Comment 5 cigarettes/day [place] Start: 02-23-2018 Alcohol Comment occas. [place] Start: 1960 Sex Assigned At Not on file [place] Start: 09-06-2019 End: 11-07-2024 Tobacco use and exposure Never used [place] Start: 10-04-2022 End: 10-14-2022 Exposure to SARS-CoV-2 (event) Not sure [place] Start: 12-30-2021 End: 02-04-2025 Tobacco smoking status Heavy tobacco smoker (finding) [facility] [place] Tobacco [facility] status [facility] [place] Start: 10-14-2022 End: 11-07-2024 Sex Assigned At Female Cecilio [facility] [place] Start: 09-10-2022 End: 09-10-2022 Tobacco smoking status NHIS Smoker (finding) [facility] Start: 1960 Sex Assigned At Female Shay [facility] [place] Start: 10-15-2022 History SDOH Alcohol Frequency 2 [employer] Work Phone: Start: 10-15-2022 History SDOH Alcohol Std Drinks 5 [employer] Work Phone: Start: 10-15-2022 History SDOH Alcohol Binge 4 [employer] Work Phone: Start: 10-14-2022 Alcohol Comment patient had 2 bottles of rum today [employer] Work Phone: How often to you hav e a drink containing alcohol? Monthly or less [employer] How many standard drinks containing alcohol do you have on a typical day? 10 or more [employer] How often do you hav e 6 or more drinks on 1 occasion? Weekly [employer] Start: 11-07-2024 Alcohol Comment occasionally [facility] Start: 11-08-2016 End: 09-28-2024 Sex Female (finding) [employer] Sexual Orientation [facility] [place] Medical Equipment Procedure Code Equipment Code Equipment Origin al Text Equipment Identifier Dates Cement Smartghv W/ Gent 40gr Must Order 20ea [id number] Start: 03-15-2018 Cement Smartghv W/ Gent 40gr Must Order 20ea [id number] Start: 03-15-2018 Cement Smartghv W/ Gent 40gr Must Order 20ea [id number] Start: 04-26-2018 Impl Knee Patell a Asym X3 [id number] Start: 04-26-2018 Lancets, See Instructions, 300 [...] check BS daily dx E11.9, [facility] #[id number], Supply, 163, cm, 12/30/21 11:09:00 EDT, Height/Length Dosing, 154, kg, 12/30/21 11:09:00 EDT, Weight Dosing Start: 04-13-2022 Test Strips, See Instructions, 100 EA, 3, Use to test BS daily dx E11.9, [facility] #[id number], Supply, 163, cm, 12/30/21 11:09:00 EDT, Height/Length Dosing, 154, kg, 12/30/21 11:09:00 EDT, Weight Dosing Start: 04-13-2022 Lancets, See Instructions, 100 EA, 3, Use to check BS daily dx E11.9, [facility] #[id number], Supply, 163, cm, 12/30/21 11:09:00 EDT, Height/Length Dosing, 154, kg, 12/30/21 11:09:00 EDT, Weight Dosing Start: 04-13-2022 Test Strips, See Instructions, 100 EA, 3, Use to test BS daily dx E11.9, [facility] #[id number], Supply, 163, cm, 12/30/21 11:09:00 EDT, Height/Length Dosing, 154, kg, 12/30/21 11:09:00 EDT, Weight Dosing Start: 04-13-2022 Lancets, See Instructions, 100 EA, 3, Use to check BS daily dx E11.9, [facility] #[id number], Supply, 163, cm, 12/30/21 11:09:00 EDT, Height/Length Dosing, 154, kg, 12/30/21 11:09:00 EDT, Weight Dosing Start: 04-13-2022 Test Strips, See Instructions, 100 EA, 3, Use to test BS daily dx E11.9, [facility] #[id number], Supply, 163, cm, 12/30/21 11:09:00 EDT, Height/Length Dosing, 154, kg, 12/30/21 11:09:00 EDT, Weight Dosing Start: 04-13-2022 Lancets, See Instructions, 100 EA, 3, Use to check BS daily dx E11.9, [facility] #[id number], Supply, 163, cm, 12/30/21 11:09:00 EDT, Height/Length Dosing, 154, kg, 12/30/21 11:09:00 EDT, Weight Dosing Start: 04-13-2022 Test Strips, See Instructions, 100 EA, 3, Use to test BS daily dx E11.9, [facility] #[id number], Supply, 163, cm, 12/30/21 11:09:00 EDT, Height/Length Dosing, 154, kg, 12/30/21 11:09:00 EDT, Weight Dosing Start: 04-13-2022 Lancets, See Instructions, 100 EA, 3, Use to check BS daily dx E11.9, [facility] #[id number], Supply, 163, cm, 12/30/21 11:09:00 EDT, Height/Length Dosing, 154, kg, 12/30/21 11:09:00 EDT, Weight Dosing Start: 04-13-2022 Test Strips, See Instructions, 100 EA, 3, Use to test BS daily dx E11.9, [facility] #[id number], Supply, 163, cm, 12/30/21 11:09:00 EDT, Height/Length Dosing, 154, kg, 12/30/21 11:09:00 EDT, Weight Dosing Start: 04-13-2022 Lancets, See Instructions, 100 EA, 3, Use to check BS daily dx E11.9, [facility] #[id number], Supply, 163, cm, 12/30/21 11:09:00 EDT, Height/Length Dosing, 154, kg, 12/30/21 11:09:00 EDT, Weight Dosing Start: 04-13-2022 Test Strips, See Instructions, 100 EA, 3, Use to test BS daily dx E11.9, [facility] #[id number], Supply, 163, cm, 12/30/21 11:09:00 EDT, Height/Length Dosing, 154, kg, 12/30/21 11:09:00 EDT, Weight Dosing Start: 04-13-2022 Lancets, See Instructions, 100 EA, 3, Use to check BS daily dx E11.9, [facility] #[id number], Supply, 163, cm, 12/30/21 11:09:00 EDT, Height/Length Dosing, 154, kg, 12/30/21 11:09:00 EDT, Weight Dosing Start: 04-13-2022 Test Strips, See Instructions, 100 EA, 3, Use to test BS daily dx E11.9, [facility] #[id number], Supply, 163, cm, 12/30/21 11:09:00 EDT, Height/Length Dosing, 154, kg, 12/30/21 11:09:00 EDT, Weight Dosing Start: 04-13-2022 Lancets, See Instructions, 100 EA, 3, Use to check BS daily dx E11.9, [facility] #[id number], Supply, 163, cm, 12/30/21 11:09:00 EDT, Height/Length Dosing, 154, kg, 12/30/21 11:09:00 EDT, Weight Dosing Start: 04-13-2022 Test Strips, See Instructions, 100 EA, 3, Use to test BS daily dx E11.9, [facility] #[id number], Supply, 163, cm, 12/30/21 11:09:00 EDT, Height/Length Dosing, 154, kg, 12/30/21 11:09:00 EDT, Weight Dosing Start: 04-13-2022 Lancets, See Instructions, 100 EA, 3, Use to check BS daily dx E11.9, [facility] #[id number], Supply, 163, cm, 12/30/21 11:09:00 EDT, Height/Length Dosing, 154, kg, 12/30/21 11:09:00 EDT, Weight Dosing Start: 04-13-2022 Test Strips, See Instructions, 100 EA, 3, Use to test BS daily dx E11.9, [facility] #[id number], Supply, 163, cm, 12/30/21 11:09:00 EDT, Height/Length Dosing, 154, kg, 12/30/21 11:09:00 EDT, Weight Dosing Start: 04-13-2022 Lancets, See Instructions, 100 EA, 3, Use to check BS daily dx E11.9, [facility] #[id number], Supply, 163, cm, 12/30/21 11:09:00 EDT, Height/Length Dosing, 154, kg, 12/30/21 11:09:00 EDT, Weight Dosing Start: 04-13-2022 Test Strips, See Instructions, 100 EA, 3, Use to test BS daily dx E11.9, [facility] #[id number], Supply, 163, cm, 12/30/21 11:09:00 EDT, Height/Length Dosing, 154, kg, 12/30/21 11:09:00 EDT, Weight Dosing Start: 04-13-2022 Lancets, See Instructions, 100 EA, 3, Use to check BS daily dx E11.9, [facility] #[id number], Supply, 163, cm, 12/30/21 11:09:00 EDT, Height/Length Dosing, 154, kg, 12/30/21 11:09:00 EDT, Weight Dosing Start: 04-13-2022 Test Strips, See Instructions, 100 EA, 3, Use to test BS daily dx E11.9, [facility] #[id number], Supply, 163, cm, 12/30/21 11:09:00 EDT, Height/Length Dosing, 154, kg, 12/30/21 11:09:00 EDT, Weight Dosing Start: 04-13-2022 Lancets, See Instructions, 100 EA, 3, Use to check BS daily dx E11.9, [facility] #[id number], Supply, 163, cm, 12/30/21 11:09:00 EDT, Height/Length Dosing, 154, kg, 12/30/21 11:09:00 EDT, Weight Dosing Start: 04-13-2022 Test Strips, See Instructions, 100 EA, 3, Use to test BS daily dx E11.9, [facility] #[id number], Supply, 163, cm, 12/30/21 11:09:00 EDT, Height/Length Dosing, 154, kg, 12/30/21 11:09:00 EDT, Weight Dosing Start: 04-13-2022 Lancets, See Instructions, 100 EA, 3, Use to check BS daily dx E11.9, [facility] #[id number], Supply, 163, cm, 12/30/21 11:09:00 EDT, Height/Length Dosing, 154, kg, 12/30/21 11:09:00 EDT, Weight Dosing Start: 04-13-2022 Test Strips, See Instructions, 100 EA, 3, Use to test BS daily dx E11.9, [facility] #[id number], Supply, 163, cm, 12/30/21 11:09:00 EDT, Height/Length Dosing, 154, kg, 12/30/21 11:09:00 EDT, Weight Dosing Start: 04-13-2022 Lancets, See Instructions, 100 EA, 3, Use to check BS daily dx E11.9, [facility] #[id number], Supply, 163, cm, 12/30/21 11:09:00 EDT, Height/Length Dosing, 154, kg, 12/30/21 11:09:00 EDT, Weight Dosing Start: 04-13-2022 Test Strips, See Instructions, 100 EA, 3, Use to test BS daily dx E11.9, [facility] #[id number], Supply, 163, cm, 12/30/21 11:09:00 EDT, Height/Length Dosing, 154, kg, 12/30/21 11:09:00 EDT, Weight Dosing Start: 04-13-2022 Lancets, See Instructions, 100 EA, 3, Use to check BS daily dx E11.9, [facility] #[id number], Supply, 163, cm, 12/30/21 11:09:00 EDT, Height/Length Dosing, 154, kg, 12/30/21 11:09:00 EDT, Weight Dosing Start: 04-13-2022 Test Strips, See Instructions, 100 EA, 3, Use to test BS daily, [facility] #[id number], Supply, 167.5, cm, 04/17/23 13:30:00 EDT, Height/Length Dosing, 147, kg, 10/18/22 13:30:00 EDT, Weight Dosing Start: 10-19-2022 Lancets, See Instructions, 100 EA, 3, Use to check BS daily dx E11.9, [facility] #[id number], Supply, 163, cm, 12/30/21 11:09:00 EDT, Height/Length Dosing, 154, kg, 12/30/21 11:09:00 EDT, Weight Dosing Start: 04-13-2022 Test Strips, See Instructions, 100 EA, 3, Use to test BS daily, [facility] #[id number], Supply, 167.5, cm, 10/18/22 13:30:00 EDT, Height/Length Dosing, 147, kg, 10/18/22 13:30:00 EDT, Weight Dosing Start: 10-19-2022 Lancets, See Instructions, 100 EA, 3, Use to check BS daily dx E11.9, [facility] #[id number], Supply, 163, cm, 12/30/21 11:09:00 EDT, Height/Length Dosing, 154, kg, 12/30/21 11:09:00 EDT, Weight Dosing Start: 04-13-2022 Test Strips, See Instructions, 100 EA, 3, Use to test BS daily, [facility] #[id number], Supply, 167.5, cm, 10/18/22 13:30:00 EDT, Height/Length Dosing, 147, kg, 10/18/22 13:30:00 EDT, Weight Dosing Start: 10-19-2022 Lancets, See Instructions, 100 EA, 3, Use to check BS daily dx E11.9, [facility] #[id number], Supply, 163, cm, 12/30/21 11:09:00 EDT, Height/Length Dosing, 154, kg, 12/30/21 11:09:00 EDT, Weight Dosing Start: 04-13-2022 Test Strips, See Instructions, 100 EA, 3, Use to test BS daily, [facility] #[id number], Supply, 167.5, cm, 10/18/22 13:30:00 EDT, Height/Length Dosing, 147, kg, 10/18/22 13:30:00 EDT, Weight Dosing Start: 10-19-2022 Lancets, See Instructions, 100 EA, 3, Use to check BS daily dx E11.9, [facility] #[id number], Supply, 163, cm, 12/30/21 11:09:00 EDT, Height/Length Dosing, 154, kg, 12/30/21 11:09:00 EDT, Weight Dosing Start: 04-13-2022 Test Strips, See Instructions, 100 EA, 3, Use to test BS daily, [facility] #[id number], Supply, 167.5, cm, 10/18/22 13:30:00 EDT, Height/Length Dosing, 147, kg, 10/18/22 13:30:00 EDT, Weight Dosing Start: 10-19-2022 Lancets, See Instructions, 100 EA, 3, Use to check BS daily dx E11.9, [facility] #[id number], Supply, 163, cm, 12/30/21 11:09:00 EDT, Height/Length Dosing, 154, kg, 12/30/21 11:09:00 EDT, Weight Dosing Start: 04-13-2022 Test Strips, See Instructions, 100 EA, 3, Use to test BS daily, [facility] #[id number], Supply, 167.5, cm, 10/18/22 13:30:00 EDT, Height/Length Dosing, 147, kg, 10/18/22 13:30:00 EDT, Weight Dosing Start: 10-19-2022 Lancets, See Instructions, 100 EA, 3, Use to check BS daily dx E11.9, [facility] #[id number], Supply, 163, cm, 12/30/21 11:09:00 EDT, Height/Length Dosing, 154, kg, 12/30/21 11:09:00 EDT, Weight Dosing Start: 04-13-2022 Test Strips, See Instructions, 100 EA, 3, Use to test BS daily, [facility] #[id number], Supply, 167.5, cm, 10/18/22 13:30:00 EDT, Height/Length Dosing, 147, kg, 10/18/22 13:30:00 EDT, Weight Dosing Start: 10-19-2022 Lancets, See Instructions, 100 EA, 3, Use to check BS daily dx E11.9, [facility] #[id number], Supply, 163, cm, 12/30/21 11:09:00 EDT, Height/Length Dosing, 154, kg, 12/30/21 11:09:00 EDT, Weight Dosing Start: 04-13-2022 Test Strips, See Instructions, 100 EA, 3, Use to test BS daily, [facility] #[id number], Supply, 167.5, cm, 10/18/22 13:30:00 EDT, Height/Length Dosing, 147, kg, 10/18/22 13:30:00 EDT, Weight Dosing Start: 10-19-2022 Lancets, See Instructions, 100 EA, 3, Use to check BS daily dx E11.9, [facility] #[id number], Supply, 163, cm, 12/30/21 11:09:00 EDT, Height/Length Dosing, 154, kg, 12/30/21 11:09:00 EDT, Weight Dosing Start: 04-13-2022 Test Strips, See Instructions, 100 EA, 3, Use to test BS daily, [facility] #[id number], Supply, 167.5, cm, 10/18/22 13:30:00 EDT, Height/Length Dosing, 147, kg, 10/18/22 13:30:00 EDT, Weight Dosing Start: 10-19-2022 Lancets, See Instructions, 100 EA, 3, Use to check BS daily dx E11.9, [facility] #[id number], Supply, 163, cm, 12/30/21 11:09:00 EDT, Height/Length Dosing, 154, kg, 12/30/21 11:09:00 EDT, Weight Dosing Start: 04-13-2022 Test Strips, See Instructions, 100 EA, 3, Use to test BS daily, [facility] #[id number], Supply, 167.5, cm, 10/18/22 13:30:00 EDT, Height/Length Dosing, 147, kg, 10/18/22 13:30:00 EDT, Weight Dosing Start: 10-19-2022 Lancets, See Instructions, 100 EA, 3, Use to check BS daily dx E11.9, [facility] #[id number], Supply, 163, cm, 12/30/21 11:09:00 EDT, Height/Length Dosing, 154, kg, 12/30/21 11:09:00 EDT, Weight Dosing Start: 04-13-2022 Test Strips, See Instructions, 100 EA, 3, Use to test BS daily, [facility] #[id number], Supply, 167.5, cm, 10/18/22 13:30:00 EDT, Height/Length Dosing, 147, kg, 10/18/22 13:30:00 EDT, Weight Dosing Start: 10-19-2022 Lancets, See Instructions, 100 EA, 3, Use to check BS daily dx E11.9, [facility] #[id number], Supply, 163, cm, 12/30/21 11:09:00 EDT, Height/Length Dosing, 154, kg, 12/30/21 11:09:00 EDT, Weight Dosing Start: 04-13-2022 Test Strips, See Instructions, 100 EA, 3, Use to test BS daily, [facility] #[id number], Supply, 167.5, cm, 10/18/22 13:30:00 EDT, Height/Length Dosing, 147, kg, 10/18/22 13:30:00 EDT, Weight Dosing Start: 10-19-2022 Lancets, See Instructions, 100 EA, 3, Use to check BS daily dx E11.9, [facility] #[id number], Supply, 163, cm, 12/30/21 11:09:00 EDT, Height/Length Dosing, 154, kg, 12/30/21 11:09:00 EDT, Weight Dosing Start: 04-13-2022 Test Strips, See Instructions, 100 EA, 3, Use to test BS daily, [facility] #[id number], Supply, 167.5, cm, 10/18/22 13:30:00 EDT, Height/Length Dosing, 147, kg, 10/18/22 13:30:00 EDT, Weight Dosing Start: 10-19-2022 Lancets, See Instructions, 100 EA, 3, Use to check BS daily dx E11.9, [facility] #[id number], Supply, 163, cm, 12/30/21 11:09:00 EDT, Height/Length Dosing, 154, kg, 12/30/21 11:09:00 EDT, Weight Dosing Start: 04-13-2022 Test Strips, See Instructions, 100 EA, 3, Use to test BS daily, [facility] #[id number], Supply, 167.5, cm, 10/18/22 13:30:00 EDT, Height/Length Dosing, 147, kg, 10/18/22 13:30:00 EDT, Weight Dosing Start: 10-19-2022 Unknown Unknown 12/23/23 Non Biological Unknown FDA Start: 12-23-2023 Lancets, See Instructions, 100 EA, 3, Use to check BS daily dx E11.9, [facility] #[id number], Supply, 163, cm, 12/30/21 11:09:00 EDT, Height/Length Dosing, 154, kg, 12/30/21 11:09:00 EDT, Weight Dosing Start: 04-13-2022 Test Strips, See Instructions, 100 EA, 3, Use to test BS daily, [facility] #[id number], Supply, 167.5, cm, 10/18/22 13:30:00 EDT, Height/Length Dosing, 147, kg, 10/18/22 13:30:00 EDT, Weight Dosing Start: 10-19-2022 Unknown Unknown 12/23/23 Non Biological Unknown FDA Start: 12-23-2023 Lancets, See Instructions, 100 EA, 3, Use to check BS daily dx E11.9, [facility] #[id number], Supply, 163, cm, 12/30/21 11:09:00 EDT, Height/Length Dosing, 154, kg, 12/30/21 11:09:00 EDT, Weight Dosing Start: 04-13-2022 Test Strips, See Instructions, 100 EA, 3, Use to test BS daily, [facility] #[id number], Supply, 167.5, cm, 10/18/22 13:30:00 EDT, Height/Length Dosing, 147, kg, 10/18/22 13:30:00 EDT, Weight Dosing Start: 10-19-2022 Unknown Unknown 12/23/23 Non Biological Unknown FDA Start: 12-23-2023 Lancets, See Instructions, 100 EA, 3, Use to check BS daily dx E11.9, [facility] #[id number], Supply, 163, cm, 12/30/21 11:09:00 EDT, Height/Length Dosing, 154, kg, 12/30/21 11:09:00 EDT, Weight Dosing Start: 04-13-2022 Test Strips, See Instructions, 100 EA, 3, Use to test BS daily, [facility] #[id number], Supply, 167.5, cm, 10/18/22 13:30:00 EDT, Height/Length Dosing, 147, kg, 10/18/22 13:30:00 EDT, Weight Dosing Start: 10-19-2022 Unknown Unknown 12/23/23 Non Biological Unknown FDA Start: 12-23-2023 Lancets, See Instructions, 100 EA, 3, Use to check BS daily dx E11.9, [facility] #[id number], Supply, 163, cm, 12/30/21 11:09:00 EDT, Height/Length Dosing, 154, kg, 12/30/21 11:09:00 EDT, Weight Dosing Start: 04-13-2022 Test Strips, See Instructions, 100 EA, 3, Use to test BS daily, [facility] #[id number], Supply, 167.5, cm, 10/18/22 13:30:00 EDT, Height/Length Dosing, 147, kg, 10/18/22 13:30:00 EDT, Weight Dosing Start: 10-19-2022 Unknown Unknown 12/23/23 Non Biological Unknown FDA Start: 12-23-2023 Lancets, See Instructions, 100 EA, 3, Use to check BS daily dx E11.9, [facility] #[id number], Supply, 163, cm, 12/30/21 11:09:00 EDT, Height/Length Dosing, 154, kg, 12/30/21 11:09:00 EDT, Weight Dosing Start: 04-13-2022 Test Strips, See Instructions, 100 EA, 3, Use to test BS daily, [facility] #[id number], Supply, 167.5, cm, 10/18/22 13:30:00 EDT, Height/Length Dosing, 147, kg, 10/18/22 13:30:00 EDT, Weight Dosing Start: 10-19-2022 Unknown Unknown 12/23/23 Non Biological Unknown FDA Start: 12-23-2023 Lancets, See Instructions, 100 EA, 3, Use to check BS daily dx E11.9, [facility] #[id number], Supply, 163, cm, 12/30/21 11:09:00 EDT, Height/Length Dosing, 154, kg, 12/30/21 11:09:00 EDT, Weight Dosing Start: 04-13-2022 Test Strips, See Instructions, 100 EA, 3, Use to test BS daily, [facility] #[id number], Supply, 167.5, cm, 10/18/22 13:30:00 EDT, Height/Length Dosing, 147, kg, 10/18/22 13:30:00 EDT, Weight Dosing Start: 10-19-2022 Unknown Unknown 12/23/23 Non Biological Unknown FDA Start: 12-23-2023 Lancets, See Instructions, 100 EA, 3, Use to check BS daily dx E11.9, [facility] #[id number], Supply, 163, cm, 12/30/21 11:09:00 EDT, Height/Length Dosing, 154, kg, 12/30/21 11:09:00 EDT, Weight Dosing Start: 04-13-2022 Test Strips, See Instructions, 100 EA, 3, Use to test BS daily, [facility] #[id number], Supply, 167.5, cm, 10/18/22 13:30:00 EDT, Height/Length Dosing, 147, kg, 10/18/22 13:30:00 EDT, Weight Dosing Start: 10-19-2022 Unknown Unknown 12/23/23 Non Biological Unknown FDA Start: 12-23-2023 Lancets, See Instructions, 100 EA, 3, Use to check BS daily dx E11.9, [facility] #[id number], Supply, 163, cm, 12/30/21 11:09:00 EDT, Height/Length Dosing, 154, kg, 12/30/21 11:09:00 EDT, Weight Dosing Start: 04-13-2022 Test Strips, See Instructions, 100 EA, 3, Use to test BS daily, [facility] #[id number], Supply, 167.5, cm, 10/18/22 13:30:00 EDT, Height/Length Dosing, 147, kg, 10/18/22 13:30:00 EDT, Weight Dosing Start: 10-19-2022 Unknown Unknown 12/23/23 Non Biological Unknown FDA Start: 06-21-2024 Lancets, See Instructions, 100 EA, 3, Use to check BS daily dx E11.9, [facility] #[id number], Supply, 163, cm, 12/30/21 11:09:00 EDT, Height/Length Dosing, 154, kg, 12/30/21 11:09:00 EDT, Weight Dosing Start: 04-13-2022 Test Strips, See Instructions, 100 EA, 3, Use to test BS daily, [facility] #[id number], Supply, 167.5, cm, 10/18/22 13:30:00 EDT, Height/Length Dosing, 147, kg, 10/18/22 13:30:00 EDT, Weight Dosing Start: 10-19-2022 Unknown Unknown 12/23/23 Non Biological Unknown FDA Start: 12-23-2023 Lancets, See Instructions, 100 EA, 3, Use to check BS daily dx E11.9, [facility] #[id number], Supply, 163, cm, 12/30/21 11:09:00 EDT, Height/Length Dosing, 154, kg, 12/30/21 11:09:00 EDT, Weight Dosing Start: 04-13-2022 Test Strips, See Instructions, 100 EA, 3, Use to test BS daily, [facility] #[id number], Supply, 167.5, cm, 10/18/22 13:30:00 EDT, Height/Length Dosing, 147, kg, 10/18/22 13:30:00 EDT, Weight Dosing Start: 10-19-2022 Unknown Unknown 12/23/23 Non Biological Unknown FDA Start: 12-23-2023 Lancets, See Instructions, 100 EA, 3, Use to check BS daily dx E11.9, [facility] #[id number], Supply, 163, cm, 12/30/21 11:09:00 EDT, Height/Length Dosing, 154, kg, 12/30/21 11:09:00 EDT, Weight Dosing Start: 04-13-2022 Test Strips, See Instructions, 100 EA, 3, Use to test BS daily, [facility] #[id number], Supply, 167.5, cm, 10/18/22 13:30:00 EDT, Height/Length Dosing, 147, kg, 10/18/22 13:30:00 EDT, Weight Dosing Start: 10-19-2022 Unknown Unknown 12/23/23 Non Biological Unknown FDA Start: 12-23-2023 Lancets, See Instructions, 100 EA, 3, Use to check BS daily dx E11.9, [facility] #[id number], Supply, 163, cm, 12/30/21 11:09:00 EDT, Height/Length Dosing, 154, kg, 12/30/21 11:09:00 EDT, Weight Dosing Start: 04-13-2022 Test Strips, See Instructions, 100 EA, 3, Use to test BS daily, [facility] #[id number], Supply, 167.5, cm, 10/18/22 13:30:00 EDT, Height/Length Dosing, 147, kg, 10/18/22 13:30:00 EDT, Weight Dosing Start: 10-19-2022 Unknown Unknown 12/23/23 Non Biological Unknown FDA Start: 12-23-2023 Lancets, See Instructions, 100 EA, 3, Use to check BS daily dx E11.9, [facility] #[id number], Supply, 163, cm, 12/30/21 11:09:00 EDT, Height/Length Dosing, 154, kg, 12/30/21 11:09:00 EDT, Weight Dosing Start: 04-13-2022 Test Strips, See Instructions, 100 EA, 3, Use to test BS daily, [facility] #[id number], Supply, 167.5, cm, 10/18/22 13:30:00 EDT, Height/Length Dosing, 147, kg, 10/18/22 13:30:00 EDT, Weight Dosing Start: 10-19-2022 Unknown Unknown 12/23/23 Non Biological Unknown FDA Start: 12-23-2023 Lancets, See Instructions, 100 EA, 3, Use to check BS daily dx E11.9, [facility] #[id number], Supply, 163, cm, 12/30/21 11:09:00 EDT, Height/Length Dosing, 154, kg, 12/30/21 11:09:00 EDT, Weight Dosing Start: 04-13-2022 Test Strips, See Instructions, 100 EA, 3, Use to test BS daily, [facility] #[id number], Supply, 167.5, cm, 10/18/22 13:30:00 EDT, Height/Length Dosing, 147, kg, 10/18/22 13:30:00 EDT, Weight Dosing Start: 10-19-2022 Unknown Unknown 12/23/23 Non Biological Unknown FDA Start: 12-23-2023 Lancets, See Instructions, 100 EA, 3, Use to check BS daily dx E11.9, [facility] #[id number], Supply, 163, cm, 12/30/21 11:09:00 EDT, Height/Length Dosing, 154, kg, 12/30/21 11:09:00 EDT, Weight Dosing Start: 04-13-2022 Test Strips, See Instructions, 100 EA, 3, Use to test BS daily, [facility] #[id number], Supply, 167.5, cm, 10/18/22 13:30:00 EDT, Height/Length Dosing, 147, kg, 10/18/22 13:30:00 EDT, Weight Dosing Start: 10-19-2022 Unknown Unknown 12/23/23 Non Biological Unknown FDA Start: 12-23-2023 Lancets, See Instructions, 100 EA, 3, Use to check BS daily dx E11.9, [facility] #[id number], Supply, 163, cm, 12/30/21 11:09:00 EDT, Height/Length Dosing, 154, kg, 12/30/21 11:09:00 EDT, Weight Dosing Start: 04-13-2022 Test Strips, See Instructions, 100 EA, 3, Use to test BS daily, [facility] #[id number], Supply, 167.5, cm, 10/18/22 13:30:00 EDT, Height/Length Dosing, 147, kg, 10/18/22 13:30:00 EDT, Weight Dosing Start: 10-19-2022 Unknown Unknown 12/23/23 Non Biological Unknown FDA Start: 12-23-2023 Lancets, See Instructions, 100 EA, 3, Use to check BS daily dx E11.9, [facility] #[id number], Supply, 163, cm, 12/30/21 11:09:00 EDT, Height/Length Dosing, 154, kg, 12/30/21 11:09:00 EDT, Weight Dosing Start: 04-13-2022 Test Strips, See Instructions, 100 EA, 3, Use to test BS daily, [facility] #[id number], Supply, 167.5, cm, 10/18/22 13:30:00 EDT, Height/Length Dosing, 147, kg, 10/18/22 13:30:00 EDT, Weight Dosing Start: 10-19-2022 Unknown Unknown 12/23/23 Non Biological Unknown FDA Start: 12-23-2023 Lancets, See Instructions, 100 EA, 3, Use to check BS daily dx E11.9, [facility] #[id number], Supply, 163, cm, 12/30/21 11:09:00 EDT, Height/Length Dosing, 154, kg, 12/30/21 11:09:00 EDT, Weight Dosing Start: 04-13-2022 Test Strips, See Instructions, 100 EA, 3, Use to test BS daily, [facility] #[id number], Supply, 167.5, cm, 10/18/22 13:30:00 EDT, Height/Length Dosing, 147, kg, 10/18/22 13:30:00 EDT, Weight Dosing Start: 10-19-2022 Unknown Unknown 12/23/23 Non Biological Unknown FDA Start: 12-23-2023 Lancets, See Instructions, 100 EA, 3, Use to check BS daily dx E11.9, [facility] #[id number], Supply, 163, cm, 12/30/21 11:09:00 EDT, Height/Length Dosing, 154, kg, 12/30/21 11:09:00 EDT, Weight Dosing Start: 04-13-2022 Test Strips, See Instructions, 100 EA, 3, Use to test BS daily, [facility] #[id number], Supply, 167.5, cm, 10/18/22 13:30:00 EDT, Height/Length Dosing, 147, kg, 10/18/22 13:30:00 EDT, Weight Dosing Start: 10-19-2022 Unknown Unknown 12/23/23 Non Biological Unknown FDA Start: 12-23-2023 Lancets, See Instructions, 100 EA, 3, Use to check BS daily dx E11.9, [facility] #[id number], Supply, 163, cm, 12/30/21 11:09:00 EDT, Height/Length Dosing, 154, kg, 12/30/21 11:09:00 EDT, Weight Dosing Start: 04-13-2022 Test Strips, See Instructions, 100 EA, 3, Use to test BS daily, [facility] #[id number], Supply, 167.5, cm, 10/18/22 13:30:00 EDT, Height/Length Dosing, 147, kg, 10/18/22 13:30:00 EDT, Weight Dosing Start: 10-19-2022 Unknown Unknown 12/23/23 Non Biological Unknown FDA Start: 12-23-2023 Lancets, See Instructions, 100 EA, 3, Use to check BS daily dx E11.9, [facility] #[id number], Supply, 163, cm, 12/30/21 11:09:00 EDT, Height/Length Dosing, 154, kg, 12/30/21 11:09:00 EDT, Weight Dosing Start: 04-13-2022 Test Strips, See Instructions, 100 EA, 3, Use to test BS daily, [facility] #[id number], Supply, 167.5, cm, 10/18/22 13:30:00 EDT, Height/Length Dosing, 147, kg, 10/18/22 13:30:00 EDT, Weight Dosing Start: 10-19-2022 Goals Date Patient Goal Desired Activity /State Functional Status Date Assessment Result Facility 07-18-2024 Functional Status N/A [facility] 07-11-2024 Functional Status N/A [facility] 06-05-2024 Functional Status N/A [facility] 02-22-2024 Functional Status N/A [facility] 12-23-2023 Functional Status N/A [facility] 12-06-2023 Functional Status No [facility] 11-25-2023 Functional Status N/A [facility] 11-02-2023 Functional Status N/A [facility] 10-26-2023 Functional Status N/A [facility] 10-25-2023 Functional Status No [facility] 10-11-2023 Functional Status N/A [facility] 08-10-2023 Functional Status N/A [facility] 05-09-2023 Functional Status N/A [facility] [place] 04-26-2023 Functional Status N/A [facility] 03-18-2023 Functional Status N/A [facility] 11-26-2022 Functional Status N/A [facility] 10-13-2022 Functional Status No [facility] 09-29-2022 Functional Status No [facility] 09-24-2022 Functional Status N/A [facility] 09-22-2022 Functional Status No [facility] 09-14-2022 Functional status Patient at [facility] Work Phone: 09-06-2022 Functional Status N/A [facility] 08-20-2022 Functional Status N/A [facility] 12-30-2021 Functional Status N/A [facility] [place] Mental Status Date Assessment Result Facility 09-14-2022 Cognitive function Cognitive Sta tus Patient at [facility] Work Phone: Clinical Notes 07-02-2021 to 02-04-2025 Note Date & Type Note Facility 02-04-2025 Hospital Discharg e instructions Patient Education 02/04/2025 15:12:35 Exercising to Lose Weight Exercising to Lose Weight Getting regular exercise is important for everyone. It is especially important if you are overweight. Being overweight increases your risk of heart disease, stroke, diabetes, high blood pressure, and several types of cancer. Exercising, and reducing the calories you consume, can help you lose weight and improve fitness and health. Exercise can be moderate or vigorous intensity. To lose weight, most people need to do a certain amount of moderate or vigorous-intensity exercise each week. How can exercise affect me? You lose weight when you exercise enough to burn more calories than you eat. Exercise also reduces body fat and builds muscle. The more muscle you have, the more calories you burn. Exercise also: Improves mood. Reduces stress and tension. Improves your overall fitness, flexibility, and endurance. Increases bone strength. Moderate-intensity exercise Moderate-intensity exercise is any activity that gets you moving enough to burn at least three times more energy (calories) than if you were sitting. Examples of moderate exercise include: Walking a mile in 15 minutes. Doing light yard work. Biking at an easy pace. Most people should get at least 150 minutes of moderate-intensity exercise a week to maintain their body weight. Vigorous-intensity exercise Vigorous-intensity exercise is any activity that gets you moving enough to burn at least six times more calories than if you were sitting. When you exercise at this intensity, you should be working hard enough that you are not able to carry on a conversation. Examples of vigorous exercise include: Running. Playing a team sport, such as football, basketball, and soccer. Jumping rope. Most people should get at least 75 minutes a week of vigorous exercise to maintain their body weight. What actions can I take to lose weight? The amount of exercise you need to lose weight depends on: Your age. The type of exercise. Any health conditions you have. Your overall physical ability. Talk to your health care provider about how much exercise you need and what types of activities are safe for you. Nutrition Make changes to your diet as told by your health care provider or diet and nutrition consultant (dietitian). This may include: ?Eating fewer calories. ?Eating more protein. ?Eating less unhealthy fats. ?Eating a diet that includes fresh fruits and vegetables, whole grains, low-fat dairy products, and lean protein. ?Avoiding foods with added fat, salt, and sugar. Drink plenty of water while you exercise to prevent dehydration or heat stroke. Activity Choose an activity that you enjoy and set realistic goals. Your health care provider can help you make an exercise plan that works for you. Exercise at a moderate or vigorous intensity most days of the week. ?The intensity of exercise may vary from person to person. You can tell how intense a workout is for you by paying attention to your breathing and heartbeat. Most people will notice their breathing and heartbeat get faster with more intense exercise. Do resistance training twice each week, such as: ?Push-ups. ?Sit-ups. ?Lifting weights. ?Using resistance bands. Getting short amounts of exercise can be just as helpful as long, structured periods of exercise. If you have trouble finding time to exercise, try doing these things as part of your daily routine: ?Get up, stretch, and walk around every 30 minutes throughout the day. ?Go for a walk during your lunch break. ?Park your car farther away from your destination. ?If you take public transportation, get off one stop early and walk the rest of the way. ?Make phone calls while standing up and walking around. ?Take the stairs instead of elevators or escalators. Wear comfortable clothes and shoes with good support. Do not exercise so much that you hurt yourself, feel dizzy, or get very short of breath. Where to find more information [place] Department of Health and Human Services: www.hhs.gov Centers for Disease Control and Prevention: www.cdc.gov Contact a health care provider: Before starting a new exercise program. If you have questions or concerns about your weight. If you have a medical problem that keeps you from exercising. Get help right away if: You have any of the following while exercising: ?Injury. ?Dizziness. ?Difficulty breathing or shortness of breath that does not go away when you stop exercising. ?Chest pain. ?Rapid heartbeat. These symptoms may represent a serious problem that is an emergency. Do not wait to see if the symptoms will go away. Get medical help right away. Call your local emergency services (911 in the [place] Do not drive yourself to the hospital. Summary Getting regular exercise is especially important if you are overweight. Being overweight increases your risk of heart disease, stroke, diabetes, high blood pressure, and several types of cancer. Losing weight happens when you burn more calories than you eat. Reducing the amount of calories you eat, and getting regular moderate or vigorous exercise each week, helps you lose weight. This information is not intended to replace advice given to you by your health care provider. Make sure you discuss any questions you have with your health care provider. Document Revised: 08/16/2021 Document Reviewed: 08/16/2021 [employer] Patient Education 2023 [employer] 02/04/2025 15:12:32 Type 2 Diabetes Mellitus, Self-Care, Adult Type [...] you how to adjust your dosage. Take [id number] and prescription medicines only as told by [...] advance with your health care provider. Activity Stay active. Exercise [...] help quitting, ask your health care provider. If you drink alcohol and your health [...] getting vaccinations as told by your health care provider, it is recommended that you get vaccinated [...] your health care provider once every year. [place] your teeth and gums two times a [...] meet with a certified diabetes care and individualized education plan aide? Where can I find a support group for people with diabetes? Where to find more information For help and guidance and for more information about diabetes, please visit: [place] [employer] (ADA): www.diabetes.org [place] [employer] Education [employer] [...] medicines to help prevent complications from diabetes. Share your diabetes management plan with people in your workplace, school, and household. Keep all follow-up visits. This is important. This information is not intended to replace advice given to you by your health care provider. Make sure you discuss any questions you have with your health care provider. Document Revised: 11/18/2021 Document Reviewed: 11/18/2021 [employer] Patient Education 2023 [employer]. 02/04/2025 15:12:29 Asthma, Adult Asthma, Adult Asthma is a long-term (chronic) condition that causes recurrent episodes in which the lower airways in the lungs become tight and narrow. The narrowing is caused by inflammation and tightening of the smooth muscle around the lower airways. Asthma episodes, also called asthma attacks or asthma flares, may cause coughing, making high-pitched whistling sounds when you breathe, most often when you breathe out (wheezing), shortness of breath, and chest pain. The airways may produce extra mucus caused by the inflammation and irritation. During an attack, it can be difficult to breathe. Asthma attacks can range from minor to life-threatening. Asthma cannot be cured, but medicines and lifestyle changes can help control it and treat acute attacks. It is important to keep your asthma well controlled so the condition does not interfere with your daily life. What are the causes? This condition is believed to be caused by inherited (genetic) and environmental factors, but its exact cause is not known. What can trigger an asthma attack? Many things can bring on an asthma attack or make symptoms worse. These triggers are different for every person. Common triggers include: Allergens and irritants like mold, dust, pet dander, cockroaches, pollen, air pollution, and chemical odors. Cigarette smoke. Weather changes and cold air. Stress and strong emotional responses such as crying or laughing hard. Certain medications such as aspirin or beta blockers. Infections and inflammatory conditions, such as the flu, a cold, pneumonia, or inflammation of the nasal membranes (rhinitis). Gastroesophageal reflux disease (GERD). What are the signs or symptoms? Symptoms may occur right after exposure to an asthma trigger or hours later and can vary by person. Common signs and symptoms include: Wheezing. Trouble breathing (shortness of breath). Excessive nighttime or cargo service agent coughing. Chest tightness. Tiredness (fatigue) with minimal activity. Difficulty talking in complete sentences. Poor exercise tolerance. How is this diagnosed? This condition is diagnosed based on: A physical exam and your medical history. Tests, which may include: ?Lung function studies to evaluate the flow of air in your lungs. ?Allergy tests. ?Imaging tests, such as X-rays. How is this treated? There is no cure, but symptoms can be controlled with proper treatment. Treatment usually involves: Identifying and avoiding your asthma triggers. Inhaled medicines. Two types are commonly used to treat asthma, depending on severity: ?Controller medicines. These help prevent asthma symptoms from occurring. They are taken every day. ?Fast-acting reliever or rescue medicines. These quickly relieve asthma symptoms. They are used as needed and provide short-term relief. Using other medicines, such as: ?Allergy medicines, such as antihistamines, if your asthma attacks are triggered by allergens. ?Immune medicines (immunomodulators). These are medicines that help control the immune system. Using supplemental oxygen. This is only needed during a severe episode. Creating an asthma action plan. An asthma action plan is a written plan for managing and treating your asthma attacks. This plan includes: ?A list of your asthma triggers and how to avoid them. ?Information about when medicines should be taken and when their dosage should be changed. ?Instructions about using a device called a peak flow meter. A peak flow meter measures how well the lungs are working and the severity of your asthma. It helps you monitor your condition. Follow these instructions at home: Take uzrf-yah-ftfkbli and prescription medicines only as told by your health care provider. Stay up to date on all vaccinations as recommended by your healthcare provider, including vaccines for the flu and pneumonia. Use a peak flow meter and keep track of your peak flow readings. Understand and use your asthma action plan to address any asthma flares. Do not smoke or allow anyone to smoke in your home. Contact a health care provider if: You have wheezing, shortness of breath, or a cough that is not responding to medicines. Your medicines are causing side effects, such as a rash, itching, swelling, or trouble breathing. You need to use a reliever medicine more than 2 3 times a week. Your peak flow reading is still at 50 79% of your personal best after following your action plan for 1 hour. You have a fever and shortness of breath. Get help right away if: You are getting worse and do not respond to treatment during an asthma attack. You are short of breath when at rest or when doing very little physical activity. You have difficulty eating, drinking, or talking. You have chest pain or tightness. You develop a fast heartbeat or palpitations. You have a bluish color to your lips or fingernails. You are light-headed or dizzy, or you faint. Your peak flow reading is less than 50% of your personal best. You feel too tired to breathe normally. These symptoms may be an emergency. Get help right away. Call 911. Do not wait to see if the symptoms will go away. Do not drive yourself to the hospital. Summary Asthma is a long-term (chronic) condition that causes recurrent episodes in which the airways become tight and narrow. Asthma episodes, also called asthma attacks or asthma flares, can cause coughing, wheezing, shortness of breath, and chest pain. Asthma cannot be cured, but medicines and lifestyle changes can help keep it well controlled and prevent asthma flares. Make sure you understand how to avoid triggers and how and when to use your medicines. Asthma attacks can range from minor to life-threatening. Get help right away if you have an asthma attack and do not respond to treatment with your usual rescue medicines. This information is not intended to replace advice given to you by your health care provider. Make sure you discuss any questions you have with your health care provider. Document Revised: 04/07/2022 Document Reviewed: 03/29/2022 [employer] Patient Education 2023 [employer]. Follow Up Care 01/02/2025 14:24:55 With:Yocasta SMITH, 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PINSETTER MECHANIC AUTOMATICMyron Address: [address] [place] [id number] When:Within 1 Month(s) Comments:weight loss, initial 40 min [facility] [place] 02-04-2025 Note Patient Education Endocrinology Type 2 Diabetes Mellitus, Self-Care, Adult Caring for yourself after you have been diagnosed with type 2 diabetes (type 2 diabetes mellitus) means keeping your blood sugar (glucose) under control with a balance of: ??? Nutrition. ??? Exercise. ??? Lifestyle changes. ??? Medicines or insulin, if needed. ??? Support from your team of health care providers and others. What are the risks? Having type 2 diabetes can put you at risk for other long-term (chronic) conditions, such as heart disease and kidney disease. Your health care provider may prescribe medicines to help prevent complications from diabetes. How to monitor your blood glucose ??? Check your blood glucose every day or as often as told by your health care provider. ??? Have your A1C (hemoglobin A1C) level checked two or more times a year, or as often as told by your health care provider. ??? Your health care provider will set personalized [...] the early signs of hyperglycemia, such as: ??? Increased thirst. ??? Hunger. ??? Feeling very tired. ??? Needing to urinate more often than usual. ??? Blurry vision. Hypoglycemia symptoms Hypoglycemia, also called [...] able to treat yourself. Symptoms may include: ??? Hunger. ??? Anxiety. ??? Sweating and feeling clammy. ??? Dizziness or feeling light-headed. ??? Sleepiness. ??? Increased heart rate. ??? Irritability. ??? Tingling or numbness around the mouth, lips, or tongue. ??? Restless sleep. Severe hypoglycemia is when your [...] available. Follow these instructions at home: Medicines ??? Take prescribed insulin or diabetes medicines as told by your health care provider. ??? Do not run out of insulin or other diabetes medicines. Plan ahead so you always have these available. ??? If you use insulin, adjust your dosage based on your physical activity and what foods you eat. Your health care provider will tell you how to adjust your dosage. ??? Take todg-hof-gfrkrer and prescription medicines only as told by [...] right for you. Make sure that you: ??? Follow instructions from your health care provider about eating or drinking restrictions. ??? Drink enough fluid to keep your urine pale yellow. ??? Keep a record of the carbohydrates that you eat. Do this by reading food labels and learning the standard serving sizes of foods. ??? Follow your sick-day plan whenever you cannot eat or drink as usual. Make this plan in advance with your health care provider. Activity ??? Stay active. Exercise regularly, as told by [...] or more days of the week. ? (more content not included)... [facility] 01-24-2025 Note ED Patient Education Note Caregiving Tissue Adhesive Wound Care Some cuts, wounds, lacerations, and incisions can be repaired by using tissue adhesive, also called skin glue. It holds the skin together so healing can happen faster. It forms a strong venegas on the skin in about 1 minute, and it reaches its full strength in about 2?3 minutes. The adhesive goes away on its own while the wound is healing. It is important to take good care of your wound while it heals. Follow these instructions at home: Wound care ??? If a bandage (dressing) has been applied, keep it clean and dry. ??? Follow instructions from your health care provider about how often to change the dressing. Make sure you: ? Wash your hands with soap and water for at least 20 seconds before and after you change your dressing. If soap and water are not available, use hand chief operating engineer. ? Change your dressing as told by your health care provider. ? Leave tissue adhesive in place. It will come off on its own after 7?10 days. ??? Do not scratch, rub, or pick at the adhesive. ??? Do not place tape over the adhesive. The adhesive could come off the wound when you pull the tape off. ??? Check the wound daily to make sure it is not starting to reopen. ??? Protect the wound from further injury until it is healed. ??? Check your wound area every day for signs of infection. Check for: ? More redness, swelling, or pain. ? Fluid or blood. ? Warmth or a rash around the wound. ? Pus or a bad smell. ? Hardness or a lump that is not from the adhesive. Bathing ??? Do not take baths, swim, or use a hot tub until your health care provider approves. Ask your health care provider if you may take showers. You may only be allowed to take sponge baths. ? You can usually shower after the first 24 hours. ? Cover the dressing with a watertight covering when you take a shower. ??? Do not soak the area where there is tissue adhesive. ??? Do not use any soaps, petroleum jelly products, or ointments on the wound. Certain ointments can weaken the adhesive. Eating and drinking ??? Eat healthy foods to help the wound heal. As told by your health care provider, eat foods rich in: ? Protein. These include meat, fish, eggs, dairy, beans, and nuts. ? Vitamin A. These include carrots and dark green, leafy vegetables. ? Vitamin C. These include citrus fruits, tomatoes, broccoli, and peppers. ??? Drink enough fluid to keep your urine pale yellow. General instructions ??? Protect your wound from the sun when you are outside for the first 6 months, or for as long as told by your health care provider. Apply sunscreen with an SPF of 30 or higher around the scar, or cover it up. ??? Take crdf-lqi-wxpamus and prescription medicines only as told by your health care provider. ??? Do not use any products that contain nicotine or tobacco. These products include cigarettes, chewing tobacco, and vaping devices, such as e-cigarettes. These can delay wound healing. If you need help quitting, ask your health care provider. ??? Keep all follow-up visits. This is important. Contact a health care provider if: ??? The tissue adhesive becomes soaked with blood or falls off before your wound has healed. The adhesive may need to be replaced. ??? You have a fever or chills. ??? You have redness, swelling, or pain around the wound. ??? You have fluid or blood coming from the wound. ??? You develop a rash after the adhesive is applied. ??? You have hardness around the wound site. Get help right away if: ??? Your wound reopens. ??? You have a red streak at the area around the wound. ??? You have pus or a bad smell coming from the wound. Summary ??? The adhesive goes away on its own while the wound is healing. It is important to take good care of your wound at home while it heals. ??? Always wash your hands with soap and water for at least 20 seconds before and after changing your bandage (dressing). ??? To help with healing, eat foods that are rich in protein, vitamin A, and vitamin C. ??? Check your wound area every day for signs of infection. This information is not intended to replace advice given to you by your health care provider. Make sure you discuss any questions you have with your health care provider. Document Revised: 10/26/2021 Document Reviewed: 10/26/2021 Elsevier Patient Education ? 2023 [employer] Fall Prevention in the Home, Adult Falls can cause injuries and affect people of all ages. There are many simple things that you can do to make your home safe and to help prevent falls. If you need it, ask for help making these changes. What actions can I take to prevent falls? General information ??? Use good lighting in all rooms. Make sure to: ? Replace any light bulbs that burn out. ? Turn on lights if it is dark and use night-lights. ??? Keep items that you use often in tecw-ag-ohhhz places. Lower t (more content not included)... [facility] 01-03-2025 Note Microbiology PROCEDURE: Blood Culture Charcoal [R1] SOURCE: Blood BODY SITE: Arm L COLLECTED DATE/TIME: 12/27/2024 10:54 EDT RECEIVED DATE/TIME: 12/27/2024 11:21 EDT START DATE/TIME: 12/27/2024 11:21 EDT FREE TEXT SOURCE: Mendez Spain, Whit Simms M.D., Whit Thurman FINAL REPORTS Final Report [] Verified Date/Time: 01/03/2025 12:00 EDT No growth at 7 days. Performing Locations R1: This test was performed at: [facility], [address] [place] [address], [id number], [facility] Comment on above: Performed By: #### 1 [id number] #### [facility] [address] [place] [address] 01-03-2025 Note Microbiology PROCEDURE: Blood Culture Charcoal [R1] SOURCE: Blood BODY SITE: Arm R COLLECTED DATE/TIME: 12/27/2024 10:56 EDT RECEIVED DATE/TIME: 12/27/2024 11:21 EDT START DATE/TIME: 12/27/2024 11:21 EDT FREE TEXT SOURCE: IV Martine Simms M.D., Whit Simms M.D., Whit Thurman FINAL REPORTS Final Report [] Verified Date/Time: 01/03/2025 12:00 EDT No growth at 7 days. Performing Locations R1: This test was performed at: [facility], [address] [place] [address], [id number] , [place], [facility] Comment on above: Performed By: #### 1 [id number] #### [facility] [address] [place] [id number] 01-02-2025 Hospital Discharg e instructions Patient Education 01/02/2025 06:50:40 Type 2 Diabetes Mellitus, Self-Care, Adult Type [...] you how to adjust your dosage. Take cqyx-wsy-zljbirj and prescription medicines only as told by [...] advance with your health care provider. Activity Stay active. Exercise [...] help quitting, ask your health care provider. If you drink alcohol and your health [...] getting vaccinations as told by your health care provider, it is recommended that you get vaccinated [...] your health care provider once every year. [place] your teeth and gums two times a [...] meet with a certified diabetes care and individualized education plan aide? Where can I find a support group for people with diabetes? Where to find more information For help and guidance and for more information about diabetes, please visit: [place] [employer] (ADA): www.diabetes.org [place] [employer] Care and Education Specialists [...] medicines to help prevent complications from diabetes. Share your diabetes management plan with people in your workplace, school, and household. Keep all follow-up visits. This is important. This information is not intended to replace advice given to you by your health care provider. Make sure you discuss any questions you have with your health care provider. Document Revised: 11/18/2021 Document Reviewed: 11/18/2021 Streamfile Patient Education 2023 [employer]. 01/02/2025 06:50:38 Sleep Apnea Sleep Apnea Sleep apnea is a condition in which breathing pauses or becomes shallow during sleep. People with sleep apnea usually snore loudly. They may have times when they gasp and stop breathing for 10 seconds or more during sleep. This may happen many times during the night. Sleep apnea disrupts your sleep and keeps your body from getting the rest that it needs. This condition can increase your risk of certain health problems, including: Heart attack. Stroke. Obesity. Type 2 diabetes. Heart failure. Irregular heartbeat. High blood pressure. The goal of treatment is to help you breathe normally again. What are the causes? The most common cause of sleep apnea is a collapsed or blocked airway. There are three kinds of sleep apnea: Obstructive sleep apnea. This kind is caused by a blocked or collapsed airway. Central sleep apnea. This kind happens when the part of the brain that controls breathing does not send the correct signals to the muscles that control breathing. Mixed sleep apnea. This is a combination of obstructive and central sleep apnea. What increases the risk? You are more likely to develop this condition if you: Are overweight. Smoke. Have a smaller than normal airway. Are older. Are male. Drink alcohol. Take sedatives or tranquilizers. Have a family history of sleep apnea. Have a tongue or tonsils that are larger than normal. What are the signs or symptoms? Symptoms of this condition include: Trouble staying asleep. Loud snoring. Morning headaches. Waking up gasping. Dry mouth or sore throat in the morning. Daytime sleepiness and tiredness. If you have daytime fatigue because of sleep apnea, you may be more likely to have: Trouble concentrating. Forgetfulness. Irritability or mood swings. Personality changes. Feelings of depression. Sexual dysfunction. This may include loss of interest if you are female, or erectile dysfunction if you are male. How is this diagnosed? This condition may be diagnosed with: A medical history. A physical exam. A series of tests that are done while you are sleeping (sleep study). These tests are usually done in a sleep lab, but they may also be done at home. How is this treated? Treatment for this condition aims to restore normal breathing and to ease symptoms during sleep. It may involve managing health issues that can affect breathing, such as high blood pressure or obesity. Treatment may include: Sleeping on your side. Using a decongestant if you have nasal congestion. Avoiding the use of depressants, including alcohol, sedatives, and narcotics. Losing weight if you are overweight. Making changes to your diet. Quitting smoking. Using a device to open your airway while you sleep, such as: ?An oral appliance. This is a custom-made mouthpiece that shifts your lower jaw forward. ?A continuous positive airway pressure (CPAP) device. This device blows air through a mask when you breathe out (exhale). ?A nasal expiratory positive airway pressure (EPAP) device. This device has valves that you put into each nostril. ?A bi-level positive airway pressure (BIPAP) device. This device blows air through a mask when you breathe in (inhale) and breathe out (exhale). Having surgery if other treatments do not work. During surgery, excess tissue is removed to create a wider airway. Follow these instructions at home: Lifestyle Make any lifestyle changes that your health care provider recommends. Eat a healthy, well-balanced diet. Take steps to lose weight if you are overweight. Avoid using depressants, including alcohol, sedatives, and narcotics. Do not use any products that contain nicotine or tobacco. These products include cigarettes, chewing tobacco, and vaping devices, such as e-cigarettes. If you need help quitting, ask your health care provider. General instructions Take ougo-mtj-hmzdkbh and prescription medicines only as told by your health care provider. If you were given a device to open your airway while you sleep, use it only as told by your health care provider. If you are having surgery, make sure to tell your health care provider you have sleep apnea. You may need to bring your device with you. Keep all follow-up visits. This is important. Contact a health care provider if: The device that you received to open your airway during sleep is uncomfortable or does not seem to be working. Your symptoms do not improve. Your symptoms get worse. Get help right away if: You develop: ?Chest pain. ?Shortness of breath. ?Discomfort in your back, arms, or stomach. You have: ?Trouble speaking. ?Weakness on one side of your body. ?Drooping in your face. These symptoms may represent a serious problem that is an emergency. Do not wait to see if the symptoms will go away. Get medical help right away. Call your local emergency services (911 in the [place] Do not drive yourself to the hospital. Summary Sleep apnea is a condition in which breathing pauses or becomes shallow during sleep. The most common cause is a collapsed or blocked airway. The goal of treatment is to restore normal breathing and to ease symptoms during sleep. This information is not intended to replace advice given to you by your health care provider. Make sure you discuss any questions you have with your health care provider. Document Revised: 01/27/2022 Document Reviewed: 05/29/2021 [employer] Patient Education 2023 [employer]. 01/02/2025 06:50:35 Heart Failure, Self-Care Heart Failure, Self-Care Heart [...] when you have heart failure Medicines Take xaor-pfc-aythlcf and prescription medicines only as told by [...] provider before you begin an exercise if: ?You are an [...] provider. Document Revised: 09/28/2022 Document Reviewed: 01/10/2021 [employer] Patient Education 2023 [employer] 01/02/2025 06:50:34 Health Risks of Smoking Health Risks of [...] is absorbed quickly into your bloodstream through your lungs. Both inhaled and [...] your mind, and long-time habits can be hard to change. Your [...] Department of Health and Human Services: www.smokefree.gov [place] [employer]: www.freedomfromsmoking.org [place] [employer]: www.heart.org Where to find more [...] provider. Document Revised: 06/22/2022 Document Reviewed: 06/22/2022 [employer] Patient Education 2023 [employer]. Follow Up Care 12/19/2024 13:33:44 With:Yocasta SMITH, 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PINSETTER [employer], Myron Hamilton Address: [address] [place] [phone] When:Within 1 Month(s) [facility] [place] 01-02-2025 Note Patient Education Cardiovascular Heart Failure, Self-Care Heart [...] good care of yourself. Problems may include: ??? Damage to the kidneys, liver, or lungs. ??? Malnutrition. ??? Abnormal heart rhythms. ??? Blood clotting issues that could cause a stroke. Supplies needed: ??? Scale for monitoring weight. ??? Blood pressure monitor. ??? Notebook. ??? Medicines. How to care for yourself when you have heart failure Medicines Take vlbq-tpn-zestmum and prescription medicines only as told by your health care provider. Medicines reduce the workload of your heart, slow the progression of heart failure, and improve symptoms. Take your medicines every day. ??? Do not stop taking your medicine unless your health care provider tells you to do so. ??? Do not skip any dose of medicine. ??? Refill your prescriptions before you run out of medicine. ??? Talk with your health care provider if you cannot afford your medicines. Eating and drinking ??? Eat heart-healthy foods. Talk with a dietitian [...] dairy products, and whole-grain or high-fiber foods. ??? Limit your fluid intake, if directed by your health care provider. Fluid restriction may reduce symptoms of heart failure. Alcohol use ??? Do not drink alcohol if: ? Your health care provider tells you not to drink. ? Your heart was damaged by alcohol, or you have severe heart failure. ? You are , may be , or are planning to become . ??? If you drink alcohol: ? Limit how [...] glass of hard liquor (44 mL). Lifestyle ??? Do not use any products that contain nicotine or tobacco. These products include cigarettes, chewing tobacco, and vaping devices, such as e-cigarettes. If you need help quitting, ask your health care provider. ? Do not use nicotine gum or patches before talking to your health care provider. ??? Do not use illegal drugs. ??? Work with your health care provider to safely reach the right body weight. ??? Do physical activity if told by your health care provider. Talk to your health care provider before you begin an exercise if: ? You are an older adult. ? You have severe heart failure. ??? Learn to manage stress. If you need help to do this, ask your health care provider. ??? Participate in or seek physical rehabilitation as needed to keep or improve your independence and quality of life. ??? Participate in a cardiac rehabilitation program, which is a treatment program to improve your health and well-being through exercise training, education, and counseling. ??? Plan rest periods when you get tired. Monitoring important information ??? Weigh yourself every day. This will help you to notice if too much fluid is building up in your body. ? Weigh yourself every morning after you urinate and before you eat breakfast. ? Wear the same amount of clothing each time you weigh yourself. ? Record your daily weight. Provide your health care provider with your weight record. ??? Monitor and record your pulse and blood pressure as told by your health care provider. Dealing with extreme temperatures ??? If the weather is extremely hot: ? Avoid vigorous physical activity. ? Use air conditioning or fans, or find a cooler location. ? Avoid caffeine and alcohol. ? Wear loose-fitting, lightweight, and light-colored clothing. ??? If the weather is extremely cold: ? Avoid vigorous activity. ? Layer your clothes. ? Wear mittens or gloves, a hat, and a face covering when you go outside. ? Avoid alcohol. (more content not included)... [facility] 12-29-2024 Evaluation + Plan note Extrac jeffrey from: Title:Discharge Note Author:Winnie Kaur III, DO Date:12/29/24 Discharge To, Anticipated II - Home with responsible caregiver Discharged to - Home with family care Discharge Diet(s): Regular (12/29/24 11:02:00) Prescriptions Abilify 5 mg Tab, 5 mg= 1 tab(s), Oral, Daily, 4 refills Albuterol (Eqv-Ventolin HFA) 90 mcg/inh inhalation aerosol, 2 puff(s), Inhalation, q6hr, PRN, 1 refills Alcohol wipes, See Instructions, 3 refills azithromycin 250 mg Tab, 250 mg= 1 tab(s), Oral, Daily cephalexin 500 mg Cap, 500 mg= 1 cap(s), Oral, QID Crestor 40 mg Tab, 40 mg= 1 tab(s), Oral, Daily, 3 refills FLUoxetine 20 mg Cap, 40 mg= 2 cap(s), Oral, Daily, 4 refills furosemide 40 mg Tab, 40 mg= 1 tab(s), Oral, BID glipiZIDE 2.5 mg ER Tab, 2.5 mg= 1 tab(s), Oral, Daily, 1 refills Glucometer, See Instructions Jardiance 10 mg oral tablet, 10 mg, Oral, Daily, 4 refills Lancets, See Instructions, 3 refills Nebulizer Machine, See Instructions Nebulizer Tubing and Mouthpiece Kit, See Instructions Pantoprazole [address] Tab, 40 mg= 1 tab(s), Oral, Daily, 3 refills potassium chloride 20 mEq ER Tab, 20 mEq= 1 tab(s), Oral, Daily, 1 refills predniSONE 10 mg Tab, 10 mg= 1 tab(s), Oral, As Directed spironolactone 25 mg Tab, 25 mg= 1 tab(s), Oral, Daily, 1 refills Test Strips, See Instructions, 3 refills Trulicity Pen 3 mg/0.5 mL subcutaneous solution, See Instructions Home gabapentin 300 mg Cap, 300 mg= 1 cap(s), TID With When Contact Information Follow up with your finished garment inspector as Scheduled January 01 Additional Instructions: Myron Rust Within 7 to [address] [place] [id number] [phone] [facility] (1) Additional Instructions: Call for followup appointment Cellulitis, Adult Fluid Restriction Heart Failure Action Plan Form - Daily Weight Record Extracted from: Title:APSO Note Author:Abisai Kaur III, DO Date:12/28/24 Patient is a 64-year-old fem nazanin with past medical history of tobacco abuse, HTN, HFpEF, GERD, history of alcohol abuse, HLD, asthma, BRENDA, morbid obesity (BMI 58.6), nrc-hzjaaqt-yxoihxhbe type 2 diabetes, marijuana use, COPD not on home oxygen, hypertension, history of volume overload especially with heavy alcohol use admitted to [facility] on 12/27/2024 for treatment of acute COPD exacerbation and acute heart failure exacerbation. 1. Acute on chronic heart failure with preserved ejection fraction (I50.33: Acute on chronic diastolic (congestive) heart failure) Echo shows mild LVH, EF of 60 to 65%, and grade 1 diastolic dysfunction. Worsening lower extremity edema despite increase Lasix dose at home, orthopnea. Admit to telemetry Strict I's and O's/daily weights Cardiac diet with 2 g sodium restriction and 2 L fluid restriction Lasix 40 mg IV twice daily Continue home spironolactone Monitor renal function with increased diuresis 2. COPD with acute exacerbation (J44.1: Chronic obstructive pulmonary disease with (acute) exacerbation) Respiratory PCR negative DuoNebs 4 times daily, budesonide nebs twice daily Solu-Medrol 40 mg IV twice daily Azithromycin 500 mg p.o. daily 3. Cellulitis of leg (L03.119: Cellulitis of unspecified part of limb) Failed outpatient treatment. Improving with IV antibiotics. Ceftriaxone 2 g daily B/L LE Duplex: Poor quality because of leg size/body habitus, however, no DVT seen 4. Elevated troponin (R79.89: Other specified abnormal findings of blood chemistry) Mild elevation. Downtrended. Possible demand ischemia. Will trend. EKG nonischemic. 5. Alcohol abuse, in remission (F10.11: Alcohol abuse, in remission) Has not drank in several months. 6. Non-insulin dependent type 2 diabetes mellitus (E11.9: Type 2 diabetes mellitus without complications) Glucose less than 180. Add BGT ACHS checks and sliding scale insulin if needed Continue home cardia's. Hold glipizide while inpatient. 7. Morbid obesity with BMI of 50.0-59.9, adult (E66.01: Morbid (severe) obesity due to excess calories) BMI is 57. With chronic shortness of breath, BRENDA and likely OHS this is contributing to her comorbid states. Would benefit from lifestyle modification and weight loss. Will discuss possible medical weight loss follow-up as outpatient. 8. Obstructive sleep apnea (G47.33: Obstructive sleep apnea (adult) (pediatric)) Compliant with her CPAP. Continue CPAP at night. Settings are 16 cm of water. 9. Severe major depression (F32.2: Major depressive disorder, single episode, severe without psychotic features) fluoxetine 10. GERD (gastroesophageal reflux disease) (K21.9: Gastro-esophageal reflux disease without esophagitis) PPI 11. Nicotine use disorder (F17.200: Nicotine dependence, unspecified, uncomplicated) Counseled on cessation. Nicotine patch and gum as needed. Orders: methylPREDNISolone, 40 mg = 1 mL, Injection, IV Push, BID, Routine, Start date 12/27/24 21:00:00 EDT nicotine, 2 mg = 1 EA, Gum, Chewed, q2hr PRN Smoking cessation, Routine, Start date 12/27/24 16:29:00 EDT, 12/27/24 16:29:00 EDT nicotine, 14 mg, 1 patch(es), Patch-ER, TransDermal, q24hr, NOW, Start date 12/27/24 16:29:00 EDT Ambulate with Assistance Capillary Glucose POC Capillary Glucose POC Capillary Glucose POC Capillary Glucose POC CBC w/ Auto Diff Comprehensive Metabolic Panel Continuous Positive Airway Pressure Echo Transthoracic Complete eGFR Respiratory Panel by PCR US Lower Extremity Venous Duplex Bilateral Disposition: Continue IV antibiotics and IV diuresis as well as aggressive treatment for COPD exacerbation. Likely discharge over the weekend Tuesday or Tuesday. I discussed the diagnosis and plan of care with the patient at the bedside. Moderate level of MDM based on addressing above issues. I spent 40 minutes on care including chart review, ordering, documentation, exam, discussion of care plan with patient. This documentation was transcribed using voice recognition software. Several attempts were made to ensure accuracy. However inadvertent computerized medical transcription editor errors may be present. Extracted from: Title:Admission H & P Author:Law jt Kaur III, DO Date:12/27/24 Patient is a 64-year-old fem nazanin with past medical history of tobacco abuse, HTN, HFpEF, GERD, history of alcohol abuse, HLD, asthma, BRENDA, morbid obesity (BMI 58.6), vrm-rsuwmxp-wbjwlnxpk type 2 diabetes, marijuana use, COPD not on home oxygen, hypertension, history of volume overload especially with heavy alcohol use admitted to [facility] on 12/27/2024 for treatment of acute COPD exacerbation and acute heart failure exacerbation. 1. Acute on chronic heart failure with preserved ejection fraction (I50.33: Acute on chronic diastolic (congestive) heart failure) Worsening lower extremity edema despite increase Lasix dose at home, orthopnea. Admit to telemetry Strict I's and O's/daily weights Cardiac diet with 2 g sodium restriction and 2 L fluid restriction Lasix 40 mg IV twice daily Continue home spironolactone Monitor renal function with increased diuresis Check echo. Optimize GDMT 2. COPD with acute exacerbation (J44.1: Chronic obstructive pulmonary disease with (acute) exacerbation) Check respiratory PCR testing DuoNebs 4 times daily, budesonide nebs twice daily Solu-Medrol 40 mg IV twice daily Azithromycin 500 mg p.o. daily 3. Cellulitis of leg (L03.119: Cellulitis of unspecified part of limb) Failed outpatient treatment. Ceftriaxone 2 g daily Check B/L LE Duplex Ordered: ceftriaxone + Sodium Chloride 0.9% intravenous solution 50 mL, 2,000 mg = 1 EA, Injection, IV Piggyback, Daily, Routine, Start date 12/27/24 18:00:00 EDT, 100 mL/hr, Infuse over 30 minute(s) 4. Elevated troponin (R79.89: Other specified abnormal findings of blood chemistry) Mild elevation. Downtrended. Possible demand ischemia. Will trend. EKG nonischemic. 5. Alcohol abuse, in remission (F10.11: Alcohol abuse, in remission) Has not drank in several months. 6. Non-insulin dependent type 2 diabetes mellitus (E11.9: Type 2 diabetes mellitus without complications) Glucose less than 180. Add BGT ACHS checks and sliding scale insulin if needed Continue home cardia's. Hold glipizide while inpatient. 7. Morbid obesity with BMI of 50.0-59.9, adult (E66.01: Morbid (severe) obesity due to excess calories) BMI is 57. With chronic shortness of breath, BRENDA and likely OHS this is contributing to her comorbid states. Would benefit from lifestyle modification and weight loss. Will discuss possible medical weight loss follow-up as outpatient. 8. Obstructive sleep apnea (G47.33: Obstructive sleep apnea (adult) (pediatric)) Compliant with her CPAP. Continue CPAP at night. Settings are 16 cm of water. 9. Severe major depression (F32.2: Major depressive disorder, single episode, severe without psychotic features) Continue fluoxetine 10. GERD (gastroesophageal reflux disease) (K21.9: Gastro-esophageal reflux disease without esophagitis) PPI 11. Nicotine use disorder (F17.200: Nicotine dependence, unspecified, uncomplicated) Counseled on cessation. Nicotine patch and gum as needed. Body mass index [BMI] 50.0-59.9, adult (Z68.43: Body mass index [BMI] 50.0-59.9, adult) Orders: acetaminophen, 650 mg = 2 tab(s), Tab, Oral, q6hr PRN Pain, Routine, Start date 12/27/24 14:03:00 EDT, 12/27/24 14:03:00 EDT albuterol-ipratropium, 3 mL, Soln-Inh, Inhalation, QID, Routine, Start date 12/27/24 16:00:00 EDT azithromycin, 500 mg = 2 tab(s), Tab, Oral, Daily for 4 day(s), Stop date 01/01/25 8:59:00 EDT, Routine, Start date 12/28/24 9:00:00 EDT, 12/27/24 14:12:00 EDT budesonide, 0.5 mg = 2 mL, Susp-Inh, NEB, BID, Routine, Start date 12/27/24 20:00:00 EDT, 12/27/24 14:05:00 EDT enoxaparin, 60 mg = 0.6 mL, Injection, SubCutaneous, BID for 30 day(s), Stop date 01/26/25 20:59:00 EDT, Routine, Start date 12/27/24 21:00:00 EDT, 12/27/24 14:03:00 EDT furosemide, 40 mg = 4 mL, Injection, IV Push, BID, Routine, Start date 12/27/24 17:00:00 EDT, 12/27/24 14:04:00 EDT nicotine, 2 mg = 1 EA, Gum, Chewed, q2hr PRN Smoking cessation, Routine, Start date 12/27/24 16:29:00 EDT, 12/27/24 16:29:00 EDT nicotine, 14 mg, 1 patch(es), Patch-ER, TransDermal, q24hr, NOW, Start date 12/27/24 16:29:00 EDT ondansetron, 4 mg = 2 mL, Injection, IV Push, q6hr PRN Nausea, Routine, Start date 12/27/24 14:03:00 EDT, 12/27/24 14:03:00 EDT predniSONE, 40 mg = 2 tab(s), Tab, Oral, Daily, Routine, Start date 12/27/24 16:00:00 EDT Activity As Tolerated Ambulate with Assistance Below the Knee Intermittent Pneumatic Compression Device Capillary Glucose POC Cardiac Diet Cardiac Monitoring CBC w/ Auto Diff Comprehensive Metabolic Panel Echo Transthoracic Complete Initial Hospital Care/Day Moderate 55 Minutes [id number] Notify Provider Vital Signs Notify Provider Vital Signs Respiratory Panel by PCR Resuscitation Status - Full US Lower Extremity Venous Duplex Bilateral Vital Signs Weight Full code, regular diet, will ask for DVT prophylaxis Moderate level of MDM based on addressing above issues. I spent 65 minutes on care including chart review, ordering, documentation, exam, discussion of care plan with patient. This documentation was transcribed using voice recognition software. Several attempts were made to ensure accuracy. However inadvertent computerized medical transcription editor errors may be present. Addendum by Abisai Kaur III, DO on December 28, 2024 14:19:55 EDT Disregard above physical exam. Typo and was a free populated physical exam. See below for actual physical exam. General: alert, mild respiratory distress, morbidly obese, pleasant and conversational. On room air. ENMT:Normal oropharynx Cardiovascular: regular rate and rhythm, normal peripheral perfusion Respiratory: Lungs significant diffuse expiratory wheezes and diminished throughout, respirations labored Extremities: no deformity, no trauma, bilateral lower extremity edema. There is associated venous stasis changes, however, appears the patient has a superimposed right lower extremity cellulitis. No skin breakdown or ulcerations. Neurological: oriented x 4, LOC appropriate for age, CN II-XII intact, motor strength equal & normal bilaterally, sensation equal & normal bilaterally, speech normal Extracted from: Title:ED Note Author:Mendez Spain, Whit Nugent te:12/27/24 1. Acute exacerbation of con gestive heart failure (I50.9: Heart failure, unspecified) 2. COPD with acute exacerbation (J44.1: Chronic obstructive pulmonary disease with (acute) exacerbation) 3. Cellulitis of leg (L03.119: Cellulitis of unspecified part of limb) 4. Elevated troponin (R79.89: Other specified abnormal findings of blood chemistry) Orders: albuterol-ipratropium, 3 mL, Soln-Inh, Inhalation, Once, Stop date 12/27/24 12:02:00 EDT, STAT, Start date 12/27/24 12:02:00 EDT albuterol-ipratropium, 3 mL, Soln-Inh, Inhalation, Once, Stop date 12/27/24 10:47:00 EDT, STAT, Start date 12/27/24 10:47:00 EDT ampicillin-sulbactam + Sodium Chloride 0.9% intravenous solution 100 mL, 3 gram = 1 EA, Injection, IV Piggyback, Once, Stop date 12/27/24 11:38:00 EDT, STAT, Start date 12/27/24 11:38:00 EDT, 200 mL/hr, Infuse over 30 minute(s) azithromycin + Sodium Chloride 0.9% intravenous solution 250 mL, 500 mg = 1 EA, Injection, IV Piggyback, Once, Stop date 12/27/24 12:52:00 EDT, STAT, Start date 12/27/24 12:52:00 EDT, 250 mL/hr, Infuse over 60 minute(s) furosemide, 40 mg = 4 mL, Injection, IV Push, Once, Stop date 12/27/24 11:39:00 EDT, STAT, Start date 12/27/24 11:39:00 EDT, 12/27/24 11:39:00 EDT B-Type Natriuretic Peptide Basic Metabolic Panel Blood Culture Charcoal Blood Culture Charcoal CBC w/ Auto Diff Continuous Pulse Oximetry ED Cardiac Monitoring ED Physician consult Hospitalist for continued care eGFR Extra SST Tube Hepatic Function Panel Lactic Acid Oxygen Therapy Procalcitonin PT & PTT Saline Lock Insert Troponin 0 Hr. Troponin 1 Hr. Troponin 3 Hr. Troponin 6 Hr. TSH With T4fr Reflex XR Chest Single View Future Appointments Appointment Date:01/01/2025 02:00:00 PM Scheduled Provider:David LEONARD, Rick Gipson [facility] [place] [facility] Type:Cardiology Follow Up (FT) Appointment Date:01/02/2025 01:40:00 PM Scheduled Provider:Yocasta SMITH, 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, Myron Hamilton Location:[facility] [place] Appointment Type:FM Open Appointment Date:01/07/2025 12:30:00 PM Scheduled Provider: Location:[facility] Appointment Type:PUL Pulmonary Function Test (FT) Future Scheduled Tests Laboratory* Microalbumin Level Urine 12/19/24 * Urine Microalbumin/Creatinine Ratio 12/19/24 [facility] 06-28-2025 Hospital Discharge instructions Patient Education 12/29/2024 11:04:44 Cellulitis, Adult Cellulitis, Adult Cellulitis is a skin infection. The infected area is usually warm, red, swollen, and tender. It most commonly occurs on the lower body, such as the legs, feet, and toes, but this condition can occur on any part of the body. The infection can travel to the muscles, blood, and underlying tissue and become life- threatening without treatment. It is important to get medical treatment right away for this condition. What are the causes? Cellulitis is caused by bacteria. The bacteria enter through a break in the skin, such as a cut, burn, insect or animal bite, open sore, or crack. What increases the risk? This condition is more likely to occur in people who: Have a weak body's defense system (immune system). Are older than 60 years old. Have diabetes. Have a type of long-term (chronic) liver disease (cirrhosis) or kidney disease. Are obese. Have a skin condition such as: ?An itchy rash, such as eczema or psoriasis. ?A fungal rash on the feet or in skinfolds. ?Blistering rashes, such as shingles or chickenpox. ?Slow movement of blood in the veins (venous stasis). ?Fluid buildup below the skin (edema). Have open wounds on the skin, such as cuts, puncture wounds, yadav, bites, scrapes, tattoos, piercings, or wounds from surgery. Have had radiation therapy. Use IV drugs. What are the signs or symptoms? Symptoms of this condition include: Skin that looks red, purple, or slightly darker than your usual skin color. Streaks or spots on the skin. Swollen area of the skin. Tenderness or pain when an area of the skin is touched. Warm skin. Fever or chills. Blisters. Tiredness (fatigue). How is this diagnosed? This condition is diagnosed based on a medical history and physical exam. You may also have tests, including: Blood tests. Imaging tests. Tests on a sample of fluid taken from the wound (wound culture). How is this treated? Treatment for this condition may include: Medicines. These may include antibiotics or medicines to treat allergies (antihistamines). Rest. Applying cold or warm wet cloths (compresses) to the skin. If the condition is severe, you may need to stay in the hospital and get antibiotics through an IV. The infection usually starts to get better within 1 2 days of treatment. Follow these instructions at home: Medicines Take suap-pex-arleevu and prescription medicines only as told by your health care provider. If you were prescribed antibiotics, take them as told by your provider. Do not stop using the antibiotic even if you start to feel better. General instructions Drink enough fluid to keep your pee (urine) pale yellow. Do not touch or rub the infected area. Raise (elevate) the infected area above the level of your heart while you are sitting or lying down. Return to your normal activities as told by your provider. Ask your provider what activities are safe for you. Apply warm or cold compresses to the affected area as told by your provider. Keep all follow-up visits. Your provider will need to make sure that a more serious infection is not developing. Contact a health care provider if: You have a fever. Your symptoms do not improve within 1 2 days of starting treatment or you develop new symptoms. Your bone or joint underneath the infected area becomes painful after the skin has healed. Your infection returns in the same area or another area. Signs of this may include: ?You notice a swollen bump in the infected area. ?Your red area gets larger, turns dark in color, or becomes more painful. ?Drainage increases. ?Pus or a bad smell develops in your infected area. ?You have more pain. You feel ill and have muscle aches and weakness. You develop vomiting or diarrhea that will not go away. Get help right away if: You notice red streaks coming from the infected area. You notice the skin turns purple or black and falls off. This symptom may be an emergency. Get help right away. Call 911. Do not wait to see if the symptom will go away. Do not drive yourself to the hospital. This information is not intended to replace advice given to you by your health care provider. Make sure you discuss any questions you have with your health care provider. Document Revised: 02/15/2023 Document Reviewed: 02/15/2023 Elsevier Patient Education 2023 [employer]. 12/29/2024 11:04:37 Fluid Restriction Fluid Restriction Fluid restriction means that a person needs to limit the amount of fluid he or she drinks each day due to certain health conditions. The amount of fluid that a person is allowed each day (fluid allowance) may depend on several things, such as: Kidney function. How much fluid the body is holding on to (retaining). Blood pressure. Heart function. Blood sodium level. It is important to carefully measure and keep track of the amount of fluid that is consumed each day. What is my plan? Your health care provider recommends that you limit your fluid intake to per day. What counts toward my fluid intake? Your fluid intake includes all liquids that you drink and any foods that become liquid at room temperature. Examples of some fluids that you will have to limit include: Tea, coffee, soda, lemonade, milk, water, juice, sports drinks, and nutritional supplement beverages. Alcoholic beverages. Cream. Gravy. Ice cubes. Soup and broth. The following are examples of foods that become liquid at room temperature. These foods will also count toward your fluid intake. Ice cream and ice milk. Frozen yogurt and sherbet. Frozen ice pops. Flavored gelatin. How do I keep track of my fluid intake? Each morning, fill a jug with the amount of water that is equal to your daily fluid allowance. You can use this water as a guideline for fluid allowance. Each time you take in any form of fluid (including ice cubes and foods that become liquid at room temperature), pour an equal amount of water outof the container. This helps you to see how much fluid you are consuming and how much more fluid you can take in during the rest of the day. The following conversions may also be helpful in measuring your fluid intake: 1 cup equals 8 oz (240 mL). cup equals 6 oz (180 mL). ? cup equals 5? oz (160 mL). cup equals 4 oz (120 mL). ? cup equals 2? oz (80 mL). cup equals 2 oz (60 mL). 2 Tbsp equals 1 oz (30 mL). What are tips for following this plan? General instructions Make sure that you stay within your recommended fluid allowance each day. Always measure and keep track of your fluids, including ice cubes and foods that become liquid at room temperature. Use small cups and glasses and learn to sip fluids slowly. Try eating frozen fruits between meals, such as grapes or strawberries. These can satisfy thirst without adding to your fluid intake. Swallow your pills with meals or soft foods, such as applesauce or mashed potatoes, instead of withliquids. Doing this helps you save your fluid allowance for something that you enjoy. Weigh yourself each day Weigh yourself every day. Keeping track of your daily weight can help you and your health care provider notice as soon as possible if your body is retaining fluid. Follow this sequence every mornin.Urinate. 2.Weigh yourself. 3.Eat breakfast. Wear the same amount of clothing each time you weigh yourself. Write down your daily weight. Give this weight record to your health care provider. If your weight is going up, you may be retaining too much fluid. Every 1 lb (0.45 kg) of body weight that you gain is a sign that your body is retaining 2 cups (480 mL) of fluid. Manage your thirst Add lemon juice or a slice of fresh lemon to water or ice. Doing this helps to satisfy your thirst. Freeze fruit juice or water in an ice cube tray. Use this as part of your fluid allowance. These cubes are useful for quenching your thirst. Before you freeze the juice or water, measure how much liquid you use to fill a cube section of the ice tray. Subtract this amount from your day's allowance each time you consume a frozen cube. Avoid salty, or high sodium, foods. These foods make you thirsty and make it more difficult to staywithin your daily fluid allowance. Keep the temperature in your home at a cooler level. Keep the air in your home as humid as possible. Dry air increases thirst. Avoid being out in the hot sun. This can cause you to sweat and become thirsty. To help avoid dry mouth, brush your teeth often or rinse out your mouth with mouthwash. Lemon wedges, hard sour candies, chewing gum, or breath spray may also help to moisten your mouth. What are some signs that I may be taking in too much fluid? You may be taking in too much fluid if: Your weight increases. Contact your health care provider if you gain weight rapidly. Your face, hands, legs, feet, and abdomen start to swell. You have trouble breathing. Summary Fluid restriction means that a person needs to limit the amount of fluid he or she drinks each day due to certain health conditions. The amount of fluid that you are allowed each day may depend on kidney function and other factors. It is important to carefully measure and keep track of the amount of fluid that you consume each day. Your fluid intake includes all liquids that you drink, as well as any foods that become liquid at room temperature, such as ice cream, ice cubes, and gelatin. You may be taking in too much fluid if your weight increases, your body starts to swell, or you have trouble breathing. This information is not intended to replace advice given to you by your health care provider. Make sure you discuss any questions you have with your health care provider. Document Revised: 04/07/2021 Document Reviewed: 04/07/2021 [employer] Patient Education 2023 [employer]. 12/29/2024 11:04:35 Heart Failure Action Plan Heart Failure Action Plan A heart failure action plan helps you understand what to do when you have symptoms of heart failure. Your action plan is a color-coded plan that lists the symptoms to watch for and indicates what actions to take. If you have symptoms in the red zone, you need medical care right away. If you have symptoms in the yellow zone, you are having problems. If you have symptoms in the green zone, you are doing well. Follow the plan that was created by [...] 2 3 lb (0.9 1.4 kg) in 24 hours, or more than 5 lb (2.3 kg) in a week. This amount may be more or less depending on your condition. You have trouble staying awake or you feel confused. You have chest pain. You do not have an appetite. You pass out. You have worsening sadness or depression. If you have any of these symptoms, call your local emergency services (911 in the [place] right away.Do not drive yourself to the hospital. Yellow zone These signs and symptoms mean your condition may be getting worse and you should make some changes: You have trouble breathing when you are active, or you need to sleep with your head raised on extrapillows to help you breathe. You have swelling in your legs or abdomen. You gain 2 3 lb (0.9 1.4 kg) in 24 hours, or 5 lb (2.3 kg) in a week. This amount may be more or less depending on your condition. You get tired easily. You have trouble sleeping. You have a dry cough. If you have any of these symptoms: Contact your health [...] symptoms. Follow these instructions at home: Take ftex-wgj-prljvdf and prescription medicines only as told by your health care provider. Weigh yourself daily. Your target weight is lb ( kg). ?Call your health care provider if you gain more than lb ( kg) in 24 hours, ormore than lb ( kg) in a week. ?Health care provider name: ?Health care provider phone number: Eat a heart-healthy diet. Work with a diet and nutrition consultant (dietitian) to create an eatingplan that is best for you. Keep all follow-up visits. This is important. Where to find more information [employer] [place]: Summary A heart failure action plan helps you understand what to do when you have symptoms of heart failure. Follow the action plan that was created by you and your health care provider. Get help right away if you have any symptoms in the red zone. This information is not intended to replace advice given to you by your health care provider. Make sure you discuss any questions you have with your health care provider. Document Revised: 09/28/2022 Document Reviewed: 02/02/2021 [employer] Patient Education 2023 [employer] 12/29/2024 11:04:33 Form - Daily Weight Record Daily Weight Record It is important to weigh yourself daily. To do this: Make sure you use a reliable scale. Use the same scale each day. Keep this daily weight chart near your scale. Weigh yourself each morning at the same time after you use the bathroom. Before weighing yourself: ?Take off your shoes. [...] with your health care provider. Document Revised: 02/23/2022 Document Reviewed: 02/23/2022 [employer] Patient Education 2023 Radha Romero Follow Up Care 12/27/2024 10:32:55 With:Follow up with your finished garment inspector as Scheduled January 01 Address:Unknown When: Unknown With:Myron Rust Address: [address] [place] [phone] Business (1) When:7 to 10 days Comments:Call for followup appointment [facility] 06-28-2025 NoteDischarge Summary Admission and Discharge Information Admit Date/Time:12/27/2024 13:58 Admitting Physician - Abisai Kaur III, DO Admitting Diagnoses: Discharge Order Date Discharge Patient - Ordered -- 12/29/24 11:05:00 EDT Discharge Diagnoses 1. Acute on chronic heart failure with preserved ejection fraction, 12/27/2024 2. COPD with acute exacerbation, 12/27/2024 3. Cellulitis of leg, 12/27/2024 4. Elevated troponin, 12/27/2024 5. Alcohol abuse, in remission, 12/27/2024 6. Non-insulin dependent type 2 diabetes mellitus, 12/27/2024 7. Morbid obesity with BMI of 50.0-59.9, adult, 12/27/2024 8. Obstructive sleep apnea, 12/27/2024 9. Severe major depression, 12/27/2024 10. GERD (gastroesophageal reflux disease), 12/27/2024 11. Nicotine use disorder, 12/27/2024 Benign hypertension, 12/29/2024 Edema, 12/27/2024 Mixed hyperlipidemia, 12/29/2024 Peripheral edema, 12/29/2024 Shortness of breath, 12/27/2024 Wheezing, 12/27/2024 Procedure History Colonoscopic polypectomy (12/23/2023), Colonoscopy (03/17/2020), Eye/lens implant bilat, Knee replacement, L foot bunion/reconstruction. Hospital Course Patient is a 64-year-old female with past medical history of tobacco abuse, HTN, HFpEF, GERD, history of alcohol abuse, HLD, asthma, BRENDA, morbid obesity (BMI 58.6), imh-gqsdfgq-ylnhxuydz type 2 diabetes, marijuana use, COPD not on home oxygen, hypertension, history of volume overload especially with heavy alcohol use admitted to [facility] on 12/27/2024 for treatment of right lower extremity cellulitis, acute COPD exacerbation and acute heart failure exacerbation. On admission, patient was started on IV Lasix twice daily, IV steroid, scheduled bronchodilators, azithromycin, and ceftriaxone. She diuresed well. Weight decreased by approximately 5 kg with IV diuresis. She stated that her shortness of breath significantly improved. Her wheezing also improved with steroids and bronchodilator therapy as well as azithromycin. Her right lower extremity cellulitis also improved. She was given Tubigrip's and put in place on her lower legs and instructed to wear Tubigrip's or compression socks on 12 hours during the day and off at night. Echo shows mild LVH, EF of 60 to 65%, and grade 1 diastolic dysfunction. Bilateral lower extremity duplex was negative for DVT. Regarding guideline directed medical therapy patient was already on Jardiance, Lasix, spironolactone. Increased Lasix dose to 40 mg p.o. twice daily on discharge. Patient could also consider adding Entresto/losartan and I recommended discussing this with her cardiologistas an outpatient. She reports that she has an outpatient follow-up appointment on January 01. With improvement in patient's symptoms she was medically stable to discharge home on 12/29/2024. Follow-up PCP 7 to 10 days Cardiology January 01 Medication changes ??? Maintain compression stockings/socks daily on 12 hours and off at night ??? Increase Lasix to 40 mg p.o. twice daily from once daily ??? Continue Jardiance and spironolactone dosing ??? Prednisone taper, azithromycin x 3 days to complete 5-day course ??? Refilled albuterol rescue inhaler ??? Keflex 500 mg p.o. 4 times daily x 8 days to complete 10-day course. Patient had been on Keflexprior to admission, however, was only on it twice daily and did not experience a significant improvement. Underdosed. Will try 4 times daily dosing for cellulitis. Physical Exam Vitals & Measurements T: 36.7 ???C(Oral) TMIN: 36.3 ???C(Oral) TMAX: 36.7 ???C(Oral) HR: 62(Monitored) RR: 19 BP: 151/78 SpO2: 92% General: alert, no acute distress, morbidly obese, pleasant and conversational. On room air. ENMT:Normal oropharynx Cardiovascular: regular rate and rhythm, normal peripheral perfusion Respiratory: Lungs diminished to auscultation bilaterally with significant improvement in inspiratory and expiratory wheezing versus admission, respirations non labored Extremities: no deformity, no trauma, bilateral lower extremity edema. There is associated venous stasis changes, however, appears the patient has a superimposed right lower extremity cellulitis -> improving. No skin breakdown or ulcerations. Neurological: oriented x 4, LOC appropriate for age, CN II-XII intact, motor strength equal & normal bilaterally, sensation equal & normal bilaterally, speech normal Tests Performed Echo Transthoracic Complete Lower Extremity Venous Duplex US Bilateral XR Chest Single View Discharge Plan Discharge Disposition Discharge To, Anticipated II - Home with responsible caregiver Discharged to - Home with family care Discharge Diet Discharge Diet(s): Regular (12/29/24 11:02:00) Discharge Medication List Prescriptions Abilify 5 mg Tab, 5 mg= 1 tab(s), Oral, Daily, 4 refills Albuterol (Eqv-Ventolin HFA) 90 mcg/inh inhalation aerosol, 2 puff(s), Inhalation, q6hr, PRN, 1 refills Alcohol wipes, See Instructions, 3 refills azithromycin 250 mg Tab, 250 mg= 1 tab(s) (more content not included)...[facility]Result Comment: Electronically Signed By: Abisai Kaur III, DO.br\Date and Time Signed: 12/29/24 11:11 EDT 12-28-2024 NoteProgress Note-Physician Assessment/Plan Patient is a 64-year-old female with past medical history of tobacco abuse, HTN, HFpEF, GERD, history of alcohol abuse, HLD, asthma, BRENDA, morbid obesity (BMI 58.6), cwp-wvypdyx-glrsfxaqv type 2 diabetes, marijuana use, COPD not on home oxygen, hypertension, history of volume overload especially with heavy alcohol use admitted to [facility] on 12/27/2024 for treatment of acute COPD exacerbation and acute heart failure exacerbation. 1. Acute on chronic heart failure with preserved ejection fraction (I50.33: Acute on chronic diastolic (congestive) heart failure) Echo shows mild LVH, EF of 60 to 65%, and grade 1 diastolic dysfunction. Worsening lower extremity edema despite increase Lasix dose at home, orthopnea. Admit to telemetry Strict I's and O's/daily weights Cardiac diet with 2 g sodium restriction and 2 L fluid restriction Lasix 40 mg IV twice daily Continue home spironolactone Monitor renal function with increased diuresis 2. COPD with acute exacerbation (J44.1: Chronic obstructive pulmonary disease with (acute) exacerbation) Respiratory PCR negative DuoNebs 4 times daily, budesonide nebs twice daily Solu-Medrol 40 mg IV twice daily Azithromycin 500 mg p.o. daily 3. Cellulitis of leg (L03.119: Cellulitis of unspecified part of limb) Failed outpatient treatment. Improving with IV antibiotics. Ceftriaxone 2 g daily B/L LE Duplex: Poor quality because of leg size/body habitus, however, no DVT seen 4. Elevated troponin (R79.89: Other specified abnormal findings of blood chemistry) Mild elevation. Downtrended. Possible demand ischemia. Will trend. EKG nonischemic. 5. Alcohol abuse, in remission (F10.11: Alcohol abuse, in remission) Has not drank in several months. 6. Non-insulin dependent type 2 diabetes mellitus (E11.9: Type 2 diabetes mellitus without complications) Glucose less than 180. Add BGT ACHS checks and sliding scale insulin if needed Continue home cardia's. Hold glipizide while inpatient. 7. Morbid obesity with BMI of 50.0-59.9, adult (E66.01: Morbid (severe) obesity due to excess calories) BMI is 57. With chronic shortness of breath, BRENDA and likely OHS this is contributing to her comorbid states. Would benefit from lifestyle modification and weight loss. Will discuss possible medical weight loss follow-up as outpatient. 8. Obstructive sleep apnea (G47.33: Obstructive sleep apnea (adult) (pediatric)) Compliant with her CPAP. Continue CPAP at night. Settings are 16 cm of water. 9. Severe major depression (F32.2: Major depressive disorder, single episode, severe without psychotic features) fluoxetine 10. GERD (gastroesophageal reflux disease) (K21.9: Gastro-esophageal reflux disease without esophagitis) PPI 11. Nicotine use disorder (F17.200: Nicotine dependence, unspecified, uncomplicated) Counseled on cessation. Nicotine patch and gum as needed. Orders: methylPREDNISolone, 40 mg = 1 mL, Injection, IV Push, BID, Routine, Start date 12/27/24 21:00:00 EDT nicotine, 2 mg = 1 EA, Gum, Chewed, q2hr PRN Smoking cessation, Routine, Start date 12/27/24 16:29:00 EDT, 12/27/24 16:29:00 EDT nicotine, 14 mg, 1 patch(es), Patch-ER, TransDermal, q24hr, NOW, Start date 12/27/24 16:29:00 EDT Ambulate with Assistance Capillary Glucose POC Capillary Glucose POC Capillary Glucose POC Capillary Glucose POC CBC w/ Auto Diff Comprehensive Metabolic Panel Continuous Positive Airway Pressure Echo Transthoracic Complete eGFR Respiratory Panel by PCR US Lower Extremity Venous Duplex Bilateral Disposition: Continue IV antibiotics and IV diuresis as well as aggressive treatment for COPD exacerbation. Likely discharge over the weekend Tuesday or Tuesday. I discussed the diagnosis and plan of care with the patient at the bedside. Moderate level of MDM based on addressing above issues. I spent 40 minutes on care including chart review, ordering, documentation, exam, discussion of care plan with patient. This documentation was transcribed using voice recognition software. Several attempts were made to ensure accuracy. However inadvertent computerized medical transcription editor errors may be present. Subjective Patient seen at bedside and is feeling significantly better. Her wheezing significantly improved and she has much better air movement on exam today. Erythema is improving somewhat on her right lower extremity cellulitis. She is diuresing well. Had echo today which shows diastolic dysfunction. Patient eager to discharge home as soon as she can. Will continue IV diuresis and IV antibiotics through today and possible discharge tomorrow. Patient tolerating diet. Objective Vitals & Measurements T: 36.3 ???C(Oral) TMIN: 36.3 ???C(Oral) TMAX: 36.8 ???C(Oral) HR: 77(Monitored) RR: 18 BP: 148/80 SpO2: 93% HT: 167.64 cm WT: 160.3 kg Intake & Output This visit (24 hour periods starting at 07:00 EDT) 12/28/24 * 12/27/24 12/26/24 Total Summary Intake mL 125 4,209 (more content not included)...[facility]Comment on above: Result Comment: Electronically Signed By: Abisai Kaur III, DO\elsie\Date and Time Signed: 12/28/24 14:25 [id number] NoteHistory and Physical Basic Information Admit Date/Time:12/27/2024 13:58 Chief Complaint Shortness od breath, edema History of Present Illness Patient is a 64-year-old female with past medical history of tobacco abuse, HTN, HFpEF, GERD, history of alcohol abuse, HLD, asthma, BRENDA, morbid obesity (BMI 58.6), muc-ecqjhrq-zvdckoiff type 2 diabetes, marijuana use, COPD not on home oxygen, hypertension, history of volume overload especially with heavy alcohol use who presents to [facility] on 12/27/2024 with chief complaint of increasinglower extremity edema, shortness of breath, and concern for cellulitis of lower extremities becauseof erythema. She had been taking spironolactone and Lasix chronically for lower extremity edema, however, she has had increasing edema over the past several months. She also endorses increasing cough, increasing wheeze, increasing lower extremity edema bilaterally with recent erythema of bilateral lower extremities worse on the right. She also endorses orthopnea. She has BRENDA and is compliant withher CPAP. Setting 16. She still actively smoking. Denies any recent illness, fevers, chills. Review of Systems Constitutional: no fever, no chills, no sweats, no weakness Respiratory: severe shortness of breath, moderate cough, no orthopnea, severe wheezing Cardiovascular: no chest pain, no palpitations, severe edema Additional ROS info: Except as noted in the above Review of Systems and in the History of Present Illness all other systems have been reviewed and are negative or noncontributory. Scoring Arnold Fall Risk Score: 45 High (12/27/24) Physical Exam Vitals & Measurements T: 36.8 ???C(Oral) TMIN: 36.5 ???C(Oral) TMAX: 36.8 ???C(Oral) HR: 79(Monitored) RR: 15 BP: 124/72 SpO2: 95% HT: 167.64 cm WT: 162.2 kg General: alert, no acute distress ENMT: TM's clear, oral mucosa moist, no pharyngeal erythema or exudate Cardiovascular: regular rate and rhythm, normal peripheral perfusion Respiratory: Lungs CTA, respirations non labored Extremities: no deformity, no trauma Neurological: oriented x 4, LOC appropriate for age, CN II-XII intact, motor strength equal & normal bilaterally, sensation equal & normal bilaterally, speech normal Lab Results WBC: 7.2 E9/L (12/27/24 10:54:00) RBC: 4.1 E12/L Low (12/27/24 10:54:00) HGB: 13.2 gm/dL (12/27/24 10:54:00) Hct: 37.2 % (12/27/24 10:54:00) MCV: 90.8 fL (12/27/24 10:54:00) MCH: 32.2 pg (12/27/24 10:54:00) MCHC: 35.5 gm/dL (12/27/24 10:54:00) RDW: 15.6 % High (12/27/24 10:54:00) Platelet: 240 E9/L (12/27/24 10:54:00) MPV: 7.2 fL (12/27/24 10:54:00) Neutro Auto: 80.8 % High (12/27/24 10:54:00) Lymph Auto: 12.1 % Low (12/27/24 10:54:00) [place] Auto: 5.3 % (12/27/24 10:54:00) Eos Auto: 1 % (12/27/24 10:54:00) Basophil Auto: 0.8 % (12/27/24 10:54:00) Neutro Absolute: 5.8 E9/L (12/27/24 10:54:00) Lymph Absolute: 0.9 E9/L Low (12/27/24 10:54:00) [place] Absolute: 0.4 E9/L (12/27/24 10:54:00) Eos Absolute: 0.1 E9/L (12/27/24 10:54:00) Basophil Absolute: 0.1 E9/L (12/27/24 10:54:00) PT: 10.7 second(s) (12/27/24 10:43:00) INR: 0.96 (12/27/24 10:43:00) PTT: 31.4 second(s) (12/27/24 10:43:00) Glucose Lvl: 147 mg/dL (12/27/24 10:54:00) BUN: 14 mg/dL (12/27/24 10:54:00) Creatinine: 0.8 mg/dL (12/27/24 10:54:00) eGFR: 83 mL/min/1.73 m2 (12/27/24 10:54:00) BUN/Creat Ratio: 18 (12/27/24 10:54:00) Sodium Lvl: 135 mmol/L (12/27/24 10:54:00) Potassium Lvl: 3.9 mmol/L (12/27/24 10:54:00) Chloride: 100 mmol/L Low (12/27/24 10:54:00) CO2: 27 mmol/L (12/27/24 10:54:00) AGAP: 12 mEq/L (12/27/24 10:54:00) Calcium Lvl: 8.9 mg/dL (12/27/24 10:54:00) Alk Phos: 62 Int._Unit/L (12/27/24 10:54:00) ALT: 23 Int._Unit/L (12/27/24 10:54:00) AST: 21 Int._Unit/L (12/27/24 10:54:00) Total Protein: 7.3 gm/dL (12/27/24 10:54:00) Albumin Lvl: 4.3 gm/dL (12/27/24 10:54:00) Globulin: 3 gm/dL (12/27/24 10:54:00) A/G Ratio: 1.4 (12/27/24 10:54:00) Bili Total: 0.4 mg/dL (12/27/24 10:54:00) Bili Direct: 0.1 mg/dL (12/27/24 10:54:00) Bili Indirect: 0.3 mg/dL (12/27/24 10:54:00) Lactic Acid Lvl: 1.2 mmol/L (12/27/24 10:54:00) TSH: 2.71 mcIU/mL (12/27/24 10:54:00) Troponin HS: 27.7 pg/mL High (12/27/24 16:12:00) BNP: 20 pg/mL (12/27/24 10:43:00) Procalcitonin: 0.08 ng/mL (12/27/24 10:54:00) Glucose Cap: 87 mg/dL (12/27/24 16:55:00) POC Device SN: [id number] (12/27/24 16:55:00) POC User ID: [id number] (12/27/24 16:55:00) POC Username: MIKEY CADET (12/27/24 16:55:00) Assessment/Plan Patient is a 64-year-old female with past medical history of tobacco abuse, HTN, HFpEF, GERD, history of alcohol abuse, HLD, asthma, BRENDA, morbid obesity (BMI 58.6), nrx-risoqee-hvrdbwiks type 2 diabetes, marijuana use, COPD not on home oxygen, hypertension, history of volume overload especially with heavy alcohol use admitted to [facility] on 12/27/2024 for treatment of acute COPD exacerbation and acute heart failure exacerbation. 1. Acute on chronic heart failure (more content not included)...[facility]:Result Comment: Electronically Signed By: Abisai Kaur III, DO\.br\Date and Time Signed: 12/28/24 14:21 [id number] Note Echocardiology Procedure Exam Date/Time Accession # Ordering Echo Transthoracic 12/28/2024 10:03 EDT [id number] Abisai Kaur III, DO CPT code [id number] Reason for Exam (Echo Transthoracic Complete) Congestive Heart Failure Report [facility] [address] [place] [address] Adult Echocardiogram Report Name: CARMEN BLEDSOE Study Date: 12/28/2024 09:14 AM BP: 131/72 mmHg Patient Location: [address] [place] [address] HR: 73 : 1960 Gender: Female Height: 65.5 in Age: 64 yrs Ethnicity: [facility] Weight: 353 lb Reason For Study: Congestive Heart Failure BSA: 2.5 m2 History: HTN,Diabetes,BRENDA, Asthma, Smoker Alcohol abuse- remission Ordering Physician: Natasha^Surendra Performed By: Annabel Oconnell [facility] Interpretation Summary The left ventricle is normal in size. mild left ventricular hypertrophy. Ejection Fraction = 60-65%. Grade I diastolic dysfunction, (abnormal relaxation pattern). Procedure A complete two-dimensional transthoracic echocardiogram was performed (2D, M- mode, spectral and color flow Doppler). Study quality is technically suboptimal. Left Ventricle The left ventricle is normal in size. mild left ventricular hypertrophy. The left ventricular ejection fraction is normal. Ejection Fraction = 60-65%. Grade I diastolic dysfunction, (abnormal relaxation pattern). Left Atrium The left atrium is mildly dilated. Right Atrium The right atrium is grossly normal. Right Ventricle The right ventricular systolic function is normal. Echocardiology Report Aortic Valve There is mild aortic valve thickening. No aortic regurgitation. There is no aortic stenosis. Mitral Valve Mitral valve structure is normal. Tricuspid Valve The tricuspid valve is grossly normal. Estimated RVSP is 24.8 mmHg. Pulmonic Valve Not well seen. Arteries The aortic root is normal in size. Venous The inferior vena cava was not visualized during the exam. Effusion There is no pericardial effusion. MMode/2D Measurements & Calculations RVDd: 4.3 cm LVIDd: 4.6 cm FS: 53.7 % Ao root diam: 2.2 cm IVSd: 1.2 cm LVIDs: 2.1 cm EDV(Teich): 95.5 ml LVPWd: 1.1 cm ESV(Teich): 14.6 ml Ao root area: 3.9 cm2 EF(Teich): 84.7 % LA dimension: 4.3 cm asc Aorta Diam: 3.5 cm LVOT diam: 1.8 cm LVLd ap4: 9.2 cm EDV(MOD-sp2): 108.0 ml LVOT area: 2.6 cm2 EDV(MOD-sp4): 163.0 ml ESV(MOD-sp2): 40.0 ml LVLs ap4: 7.2 cm EF(MOD-sp2): 63.0 % ESV(MOD-sp4): 53.9 ml EF(MOD-sp4): 66.9 % SV(MOD-sp4): 109.1 ml Ao Sinus of Valsalva: 3.3 cm Ao Sinotubular Junction: 2.7 cm RVIDd/LVIDd: 0.95 EF (MOD-bp): 65.7 % LA Vol Index: 27.6 ml/m2 Doppler Measurements & Calculations MV E max jairon: 133.5 cm/sec MV dec time: 0.18 sec Ao V2 max: 286.0 cm/sec LV V1 max P.2 mmHg MV A max jairon: 145.0 cm/sec Ao max P.7 mmHg LV V1 mean P.0 mmHg MV E/A: 0.92 Ao V2 mean: 204.0 cm/sec LV V1 max: 114.0 cm/sec Lat Peak E' Jairon: 6.7 cm/sec Ao mean P.0 mmHg LV V1 mean: 73.7 cm/sec E/E' Lat: 20.0 Ao V2 VTI: 57.6 cm LV V1 VTI: 20.0 cm Med Peak E' Jairon: 9.6 cm/sec E/E' Med: 13.9 FLAVIA(I,D): 0.91 cm2 FLAVIA(V,D): 1.0 cm2 Echocardiology Report SV(LVOT): 52.2 ml TR max jairon: 248.9 cm/sec AV VR: 0.40 TR max P.8 mmHg FLAVIA(VTI)/BSA_phl: 0.35 FINAL REPORT Dictated: 12/28/2024 9:14 am Winter Coe MD Signed (Electronic Signature): 12/28/2024 12:09 pm Signed by: Winter Coe MD Transcribed by: RUBEN Technologist: [facility]06-26-2025 Note History and Physical Basic Information Admit Date/Time:12/27/2024 13:58 Chief Complaint Shortness od breath, edema History of Present Illness Patient is a 64-year-old female with past medical history of tobacco abuse, HTN, HFpEF, GERD, history of alcohol abuse, HLD, asthma, BRENDA, morbid obesity (BMI 58.6), qfq-wogmipk-fjntxzvww type 2 diabetes, marijuana use, COPD not on home oxygen, hypertension, history of volume overload especially with heavy alcohol use who presents to [facility] on 12/27/2024 with chief complaint of increasinglower extremity edema, shortness of breath, and concern for cellulitis of lower extremities becauseof erythema. She had been taking spironolactone and Lasix chronically for lower extremity edema, however, she has had increasing edema over the past several months. She also endorses increasing cough, increasing wheeze, increasing lower extremity edema bilaterally with recent erythema of bilateral lower extremities worse on the right. She also endorses orthopnea. She has BRENDA and is compliant withher CPAP. Setting 16. She still actively smoking. Denies any recent illness, fevers, chills. Review of Systems Constitutional: no fever, no chills, no sweats, no weakness Respiratory: severe shortness of breath, moderate cough, no orthopnea, severe wheezing Cardiovascular: no chest pain, no palpitations, severe edema Additional ROS info: Except as noted in the above Review of Systems and in the History of Present Illness all other systems have been reviewed and are negative or noncontributory. Scoring Arnold Fall Risk Score: 45 High (12/27/24) Physical Exam Vitals & Measurements T: 36.8 ???C(Oral) TMIN: 36.5 ???C(Oral) TMAX: 36.8 ???C(Oral) HR: 79(Monitored) RR: 15 BP: 124/72 SpO2: 95% HT: 167.64 cm WT: 162.2 kg General: alert, no acute distress ENMT: TM's clear, oral mucosa moist, no pharyngeal erythema or exudate Cardiovascular: regular rate and rhythm, normal peripheral perfusion Respiratory: Lungs CTA, respirations non labored Extremities: no deformity, no trauma Neurological: oriented x 4, LOC appropriate for age, CN II-XII intact, motor strength equal & normal bilaterally, sensation equal & normal bilaterally, speech normal Lab Results WBC: 7.2 E9/L (12/27/24 10:54:00) RBC: 4.1 E12/L Low (12/27/24 10:54:00) HGB: 13.2 gm/dL (12/27/24 10:54:00) Hct: 37.2 % (12/27/24 10:54:00) MCV: 90.8 fL (12/27/24 10:54:00) MCH: 32.2 pg (12/27/24 10:54:00) MCHC: 35.5 gm/dL (12/27/24 10:54:00) RDW: 15.6 % High (12/27/24 10:54:00) Platelet: 240 E9/L (12/27/24 10:54:00) MPV: 7.2 fL (12/27/24 10:54:00) Neutro Auto: 80.8 % High (12/27/24 10:54:00) Lymph Auto: 12.1 % Low (12/27/24 10:54:00) [place] Auto: 5.3 % (12/27/24 10:54:00) Eos Auto: 1 % (12/27/24 10:54:00) Basophil Auto: 0.8 % (12/27/24 10:54:00) Neutro Absolute: 5.8 E9/L (12/27/24 10:54:00) Lymph Absolute: 0.9 E9/L Low (12/27/24 10:54:00) [place] Absolute: 0.4 E9/L (12/27/24 10:54:00) Eos Absolute: 0.1 E9/L (12/27/24 10:54:00) Basophil Absolute: 0.1 E9/L (12/27/24 10:54:00) PT: 10.7 second(s) (12/27/24 10:43:00) INR: 0.96 (12/27/24 10:43:00) PTT: 31.4 second(s) (12/27/24 10:43:00) Glucose Lvl: 147 mg/dL (12/27/24 10:54:00) BUN: 14 mg/dL (12/27/24 10:54:00) Creatinine: 0.8 mg/dL (12/27/24 10:54:00) eGFR: 83 mL/min/1.73 m2 (12/27/24 10:54:00) BUN/Creat Ratio: 18 (12/27/24 10:54:00) Sodium Lvl: 135 mmol/L (12/27/24 10:54:00) Potassium Lvl: 3.9 mmol/L (12/27/24 10:54:00) Chloride: 100 mmol/L Low (12/27/24 10:54:00) CO2: 27 mmol/L (12/27/24 10:54:00) AGAP: 12 mEq/L (12/27/24 10:54:00) Calcium Lvl: 8.9 mg/dL (12/27/24 10:54:00) Alk Phos: 62 Int._Unit/L (12/27/24 10:54:00) ALT: 23 Int._Unit/L (12/27/24 10:54:00) AST: 21 Int._Unit/L (12/27/24 10:54:00) Total Protein: 7.3 gm/dL (12/27/24 10:54:00) Albumin Lvl: 4.3 gm/dL (12/27/24 10:54:00) Globulin: 3 gm/dL (12/27/24 10:54:00) A/G Ratio: 1.4 (12/27/24 10:54:00) Bili Total: 0.4 mg/dL (12/27/24 10:54:00) Bili Direct: 0.1 mg/dL (12/27/24 10:54:00) Bili Indirect: 0.3 mg/dL (12/27/24 10:54:00) Lactic Acid Lvl: 1.2 mmol/L (12/27/24 10:54:00) TSH: 2.71 mcIU/mL (12/27/24 10:54:00) Troponin HS: 27.7 pg/mL High (12/27/24 16:12:00) BNP: 20 pg/mL (12/27/24 10:43:00) Procalcitonin: 0.08 ng/mL (12/27/24 10:54:00) Glucose Cap: 87 mg/dL (12/27/24 16:55:00) POC Device SN: [id number] (12/27/24 16:55:00) POC User ID: [id number] (12/27/24 16:55:00) POC Username: MIKEY CADET (12/27/24 16:55:00) Assessment/Plan Patient is a 64-year-old female with past medical history of tobacco abuse, HTN, HFpEF, GERD, history of alcohol abuse, HLD, asthma, BRENDA, morbid obesity (BMI 58.6), vnt-eqtsydz-xzedmahus type 2 diabetes, marijuana use, COPD not on home oxygen, hypertension, history of volume overload especially with heavy alcohol use admitted to [facility] on 12/27/2024 for treatment of acute COPD exacerbation and acute heart failure exacerbation. 1. Acute on chronic heart failure (more content not included)...[facility]Result Comment: Electronically Signed By: Abisai Kaur III, DO.br\Date and Time Signed: 12/27/24 17:49 [id number] Hospital Discharge instructions Patient Education 12/19/2024 06:38:27 Type 2 Diabetes Mellitus, Self-Care, Adult Type [...] treat it right away. Always have a 53-wqufwdjuh-uxeqwr carbohydrate snack with you to treat low [...] you how to adjust your dosage. Take vxej-zrh-cphppng and prescription medicines only as told by [...] your health care provider once every year. [place] your teeth and gums two times a [...] meet with a certified diabetes care and individualized education plan aide? Where can I find a support group for people with diabetes? Where to find more information For help and guidance and for more information about diabetes, please visit: [place] [employer] (ADA): www.diabetes.org [place] [employer] Care and Education Specialists [...] provider. Document Revised: 11/18/2021 Document Reviewed: 11/18/2021 Stream[employer] Patient Education 2023 [employer]. 12/19/2024 06:38:26 Hypertension, Adult Hypertension, Adult High blood pressure [...] follow-up visits. This is important. Medicines Take utsr-pgs-bsyilpi and prescription medicines only as told by [...] provider. Document Revised: 04/27/2022 Document Reviewed: 04/27/2022 [employer] Patient Education 2023 [employer]. 12/19/2024 06:38:25 Heart Failure, Self-Care Heart Failure, Self-Care Heart [...] when you have heart failure Medicines Take rjev-qrd-dpspftf and prescription medicines only as told by [...] provider. Document Revised: 09/28/2022 Document Reviewed: 01/10/2021 [employer] Patient Education 2023 [employer]. Follow Up Care 09/12/2024 13:36:39 With:Yocasta SMITH, 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, Myron Hamilton Address: [address] [place] [phone] When:Within 2 Week(s) Comments:chronic care [facility] [place] 06-18-2025 NotePatient Education Cardiovascular Hypertension, Adult High blood pressure [...] these risk factorsare under your control, including: ??? Smoking. ??? Not getting enough exercise or physical activity. ??? Being overweight. ??? Having too much fat, sugar, calories, or salt (sodium) in your diet. ??? Drinking too much alcohol. Other risk factors include: ??? Having a personal history of heart disease, diabetes, high cholesterol, or kidney disease. ??? Stress. ??? Having a family history of high blood pressure and high cholesterol. ??? Having obstructive sleep apnea. ??? Age. The risk increases with age. What are the signs or symptoms? High blood pressure may not cause symptoms. Very high blood pressure (hypertensive crisis) may cause: ??? Headache. ??? Fast or irregular heartbeats (palpitations). ??? Shortness of breath. ??? Nosebleed. ??? Nausea and vomiting. ??? Vision changes. ??? Severe chest pain, dizziness, and seizures. How [...] risk factors, you may be asked to: ??? Return on a different day to have your blood pressure checked again. ??? Monitor your blood pressure at home for [...] your blood pressure under control and if: ??? Your systolic blood pressure is above 130. ??? Your diastolic blood pressure is above 80. Your personal target blood pressure may vary depending on your medical conditions, your age, and other factors. Follow these instructions at home: Eating and drinking ??? Eat a diet that is high in [...] higher in sodium, added sugar, and fat. ??? Reduce your daily sodium intake. Many people with hypertension should eat less than 1,500 mg ofsodium a day. ??? Do not drink alcohol if: ? Your health care provider tells you not to drink. ? You are , may be , or are planning to become . ??? If you drink alcohol: ? Limit how much you have to: ? 0?1 drink a day for women. ? 0?2 drinks a day for men. ? Know how much alcohol is in your drink. In the [place] one drink equals one 12 oz bottle (more content not included)...[facility]05[facility] Hospital Discharge instructions Patient Education 11/27/2024 17:34:22 Shortness of Breath, Adult Shortness of Breath, Adult Shortness of breath is when a person has trouble breathing or when a person feels like she or he ishaving trouble breathing in enough air. Shortness of breath could be a sign of a medical problem. Follow these instructions at home: Pollutants Do not use any products that contain nicotine or tobacco. These products include cigarettes, chewing tobacco, and vaping devices, such as e-cigarettes. This also includes cigars and pipes. If you need help quitting, ask your health care provider. Avoid things that can irritate your airways, including: ?Smoke. This includes campfire smoke, forest fire smoke, and secondhand smoke from tobacco products. Do not smoke or allow others to smoke in your home. ?Mold. ?Dust. ?Air pollution. ?Chemical fumes. ?Things that can give you an allergic reaction (allergens) if you have allergies. Common allergens include pollen from grasses or trees and animal dander. Keep your living space clean and free of mold and dust. General instructions Pay attention to any changes in your symptoms. Take hmgx-uwt-yjdncti and prescription medicines only as told by your health care provider. This includes oxygen therapy and inhaled medicines. Rest as needed. Return to your normal activities as told by your health care provider. Ask your health care provider what activities are safe for you. Keep all follow-up visits. This is important. Contact a health care provider if: Your condition does not improve as soon as expected. You have a hard time doing your normal activities, even after you rest. You have new symptoms. You cannot walk up stairs or exercise the way that you normally do. Get help right away if: Your shortness of breath gets worse. You have shortness of breath when you are resting. You feel light-headed or you faint. You have a cough that is not controlled with medicines. You cough up blood. You have pain with breathing. You have pain in your chest, arms, shoulders, or abdomen. You have a fever. These symptoms may be an emergency. Get help right away. Call 911. Do not wait to see if the symptoms will go away. Do not drive yourself to the hospital. Summary Shortness of breath is when a person has trouble breathing enough air. It can be a sign of a medical problem. Avoid things that irritate your lungs, such as smoking, pollution, mold, and dust. Pay attention to changes in your symptoms and contact your health care provider if you have a hard time completing daily activities because of shortness of breath. This information is not intended to replace advice given to you by your health care provider. Make sure you discuss any questions you have with your health care provider. Document Revised: 02/06/2022 Document Reviewed: 02/06/2022 Streamfile Patient Education 2023 [employer]. 11/27/2024 17:34:19 Type 2 Diabetes Mellitus, Self-Care, Adult Type [...] treat it right away. Always have a 21-yezjoaoai-qcldcl carbohydrate snack with you to treat low [...] you how to adjust your dosage. Take jurv-smw-hlthjid and prescription medicines only as told by [...] your health care provider once every year. [place] your teeth and gums two times a [...] meet with a certified diabetes care and individualized education plan aide? Where can I find a support group for people with diabetes? Where to find more information For help and guidance and for more information about diabetes, please visit: [place] [employer] (ADA): www.diabetes.org [place] [employer] Care and Education Specialists [...] provider. Document Revised: 11/18/2021 Document Reviewed: 11/18/2021 Streamfile Patient Education 2023 [employer]. 11/26/2024 10:15:58 Peripheral Edema Peripheral Edema Peripheral edema is [...] by your health care provider. Medicines Take uqro-rvo-wtwhlnw and prescription medicines only as told by [...] provider. Document Revised: 02/22/2022 Document Reviewed: 02/22/2022 Streamfile Patient Education 2023 [employer]. 11/26/2024 10:15:55 Health Risks of Smoking Health Risks of [...] to children increases the risk of: Sudden syndrome (SIDS). Infections in the nose, throat, [...] Department of Health and Human Services: www.smokefree.gov [place] [employer]: www.freedomfromsmoking.org [place] [employer]: www.heart.org Where to find more [...] provider. Document Revised: 06/22/2022 Document Reviewed: 06/22/2022 Streamfile Patient Education 2023 [employer]. Follow Up Care 11/12/2024 15:55:00 With:Yocasta SMITH, 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, Myron Hamilton Address: [address] [place] [phone] When: only if needed [facility] [place] 05-27-2025 NotePatient Education Endocrinology Type 2 Diabetes Mellitus, Self-Care, Adult Caring for yourself after you have been diagnosed with type 2 diabetes (type 2 diabetes mellitus) means keeping your blood sugar (glucose) under control with a balance of: ??? Nutrition. ??? Exercise. ??? Lifestyle changes. ??? Medicines or insulin, if needed. ??? Support from your team of health care providers and others. What are the risks? Having type 2 diabetes can put you at risk for other long-term (chronic) conditions, such as heart disease and kidney disease. Your health care provider may prescribe medicines to help prevent complications from diabetes. How to monitor your blood glucose ??? Check your blood glucose every day or as often as told by your health care provider. ??? Have your A1C (hemoglobin A1C) level checked two or more times a year, or as often as told by your health care provider. ??? Your health care provider will set personalized treatment goals for you. Generally, the goal oftreatment is to maintain the following blood glucose levels: ? Before meals: 80?130 mg/dL (4.4?7.2 mmol/L). ? After meals: below 180 mg/dL (10 mmol/L). ? A1C level: less than 7%. How to manage hyperglycemia and hypoglycemia Hyperglycemia symptoms Hyperglycemia, also called high blood glucose, occurs when blood glucose is too high. Make sure youknow the early signs of hyperglycemia, such as: ??? Increased thirst. ??? Hunger. ??? Feeling very tired. ??? Needing to urinate more often than usual. ??? Blurry vision. Hypoglycemia symptoms Hypoglycemia, also called [...] treat it right away. Always have a 45-fafbivlgp-ajwdcy carbohydrate snack with you to treat low blood glucose. Family members and close friends should also know the symptoms and understand how to treat hypoglycemia, in case you are not able to treat yourself. Symptoms may include: ??? Hunger. ??? Anxiety. ??? Sweating and feeling clammy. ??? Dizziness or feeling light-headed. ??? Sleepiness. ??? Increased heart rate. ??? Irritability. ??? Tingling or numbness around the mouth, lips, or tongue. ??? Restless sleep. Severe hypoglycemia is when your [...] available. Follow these instructions at home: Medicines ??? Take prescribed insulin or diabetes medicines as told by your health care provider. ??? Do not run out of insulin or other diabetes medicines. Plan ahead so you always have these available. ??? If you use insulin, adjust your dosage based on your physical activity and what foods you eat. Your health care provider will tell you how to adjust your dosage. ??? Take suvp-yvu-aecwznq and prescription medicines only as told by [...] right for you. Make sure that you: ??? Follow instructions from your health care provider about eating or drinking restrictions. ??? Drink enough fluid to keep your urine pale yellow. ??? Keep a record of the carbohydrates that you eat. Do this by reading food labels and learning the standard serving sizes of foods. ??? Follow your sick-day plan whenever you cannot eat or drink as usual. Make this plan in advance with your health care provider. Activity ??? Stay active. Exercise regularly, as told by [...] or more days of the week. ? (more content not included)...[facility] History of Present illness Narrative* Susu Moody - 11/07/2024 10:00 AM EDT BRENDA on CPAP machine * Coco Dean MD - 11/07/2024 10:00 AM EDT BARIATRIC SURGERY NEW PATIENT CONSULTATION HISTORY AND PHYSICAL Date: 11/07/2024 Time: 10:47 AM Name: Carmen Bledsoe PCP: Myron Rust Insurance: Payor: [facility] [employer]ICA[employer]AN / Plan: [facility] [employer]ICA[employer] COMM[employer]ITY PLAN / Product Type: *No Product type* / Reason for visit: Medically refractory morbid obesity HPI: Ms. Bledsoe is a 63 y.o. female with morbid obesity (Body mass index is 54.72 kg/m .) who presents toclinic for consideration of bariatric surgery. Has tried numerous weight loss interventions, including diet and exercise programs (which are documented in Medical Questionnaire) and has been unable to achieve significant, sustained weight loss. Heaviest wt: 339 Duration: entire life Best weight loss / intervention: 50 lbs on keto last year Weight loss goal with surgery: 200 lbs NSAIDS: no PAST MEDICAL HISTORY: Past Medical History: Diagnosis Date Arthritis Asthma Congestive heart failure Depression Diabetes mellitus Essential hypertension, benign GERD (gastroesophageal reflux disease) BRENDA (obstructive sleep apnea) PAST SURGICAL HISTORY: Past Surgical History: Procedure Laterality Date FOOT SURGERY Left KNEE REPLACEMENT Bilateral REMOVAL CATARACT (PEM) Bilateral FAMILY HISTORY: History reviewed. No pertinent family history. denies personal/family hx of VTE. yes personal/family hx of cancer - mother - stomach cancer - father - liver cancer no personal/family hx of premature cardiac issues SOCIAL HISTORY: Social History Tobacco Use Smoking status: Every Day Current packs/day: 0.50 Average packs/day: 0.5 packs/day for 45.3 years (22.7 ttl pk-yrs) Types: Cigarettes Start date: 07/04/1979 Smokeless tobacco: Never Vaping Use Vaping status: Never Used Substance Use Topics Alcohol use: Yes Comment: occasionally Drug use: Never Denies significant EtOH/drug use. Smokin/2 ppd MEDICATIONS: Prior to Admission Medications: Current Outpatient Medications Medication Sig Last Dose Start Date End Date Authorizing Provider Crestor 40 MG tablet 40 mg, DAILY Taking 06/05/24 Historical Provider furOSEmide 40 MG tablet 40 mg, DAILY Taking 06/05/24 Historical Provider glipiZIDE 2.5 MG tablet XL 1 tablet, DAILY Taking 12/20/23 Historical Provider Pantoprazole [address] tablet DR 40 mg, DAILY Taking 05/07/24 Historical Provider Trulicity 3 MG/0.5ML Solution Auto-injector 3 mg, WEEKLY Taking 10/26/24 Historical Provider Albuterol 108 (90 Base) MCG/ACT Aero Soln inhaler 2 puffs, EVERY 4 HOURS NEEDED Taking Historical Provider Aripiprazole 5 MG tablet 5 mg, DAILY Taking Historical Provider atorvastatin 80 MG tablet 80 mg, NOCTURNAL Taking Historical Provider FLUoxetine 20 MG capsule 40 mg, DAILY Taking Historical Provider Gabapentin 300 MG capsule 300 mg, 3 TIMES DAILY Taking Historical Provider Jardiance 10 MG tablet 10 mg, DAILY Taking Historical Provider Potassium Chloride ER 20 MEQ Tab CR tablet take 1 tablet by mouth once daily WITH LASIX Taking Historical Provider Spironolactone 25 MG tablet 25 mg, DAILY Taking Historical Provider ALLERGIES: Allergies Allergen Reactions Amlodipine Other Reaction(s): Leg Edema Metformin Diarrhea REVIEW OF SYSTEMS: GENERAL: Negative for malaise, significant weight loss and fever HEAD: Negative for headache, swelling. NECK: Negative for lumps, goiter, pain and significant neck swelling RESPIRATORY: Negative for cough, wheezing or shortness of breath. CARDIOVASCULAR: Negative for chest pain, leg swelling or palpitations. GI: Negative for abdominal discomfort, blood in stools or black stools or change in bowel habits : No history of dysuria, frequency or incontinence MUSCULOSKELETAL: Negative for joint pain or swelling, back pain or muscle pain. SKIN: Negative for lesions, rash, and itching. PSYCH: Negative for sleep disturbance, mood disorder and recent psychosocial stressors. ENDOCRINE: Negative for cold or heat intolerance, polyuria, polydipsia and goiter. PHYSICAL EXAM: Visit Vitals BP 122/82 (BP Location: Left arm, BP Position: Sitting) Pulse 85 Resp 22 Ht 1.676 m (5' 6 ) Wt (!) 153.8 kg (339 lb) SpO2 97% BMI 54.72 kg/m Body mass index is 54.72 kg/m . General appearance: obese, NAD Neuro: AOx3 Head: EOMI; no swelling or lesions of scalp or face ENT: no lumps or lymphadenopathy, thyroid normal to palpation; oropharynx clear, no swelling or erythema Skin: warm, no erythema or rashes Lungs: clear to percussion and auscultation Heart: regular rhythm and S1, S2 normal Abdomen: obese, soft, non-tender, no masses, no organomegaly no scars Extremities: Normal exam of the extremities. No swelling or pain. Psych: no hurried speech, no flight of ideas, normal affect Assessment: Carmen Bledsoe is a 63 y.o. female who had a diagnosis of Morbid Obesity, a chronic illness that threatens bodily function and significantly increases the risk of future obesity related comorbidities. This threat, along with the already established impact on bodily function and comorbidities, in my opinion justifies consideration of major surgery, such as bariatric surgery. Despite numerous medical interventions, patient has been unable to achieve significant and durable weight loss. I think the patient would benefit from weight loss surgery, but stressed that the decision to proceed with surgery is complex and requires careful analysis of the risks and benefits of surgery vs. continued morbid obesity. These were discussed at the time of visit. I also stressed the importance of weighing the pros and cons of each individual procedure and tailoring the decision to patient's expectations, goals and medical/surgical history. This visit involved complex medical decision making related to the potential of major abdominal surgery, that involves potentially significant morbidity. The visit included both, counseling the patient on the best procedure and tailoring their work up and consultations to meet both the requirementsof their insurance provider as well as appropriate medical evaluations to properly prepare and evaluate the patient's ultimate candidacy for surgery. This complex decision making involved reviewing significant amounts of medical data in the patient's EMR including but not limited to lab work, imaging (including personally reviewing the images themselves), previous procedures including endoscopy and confirming medications and medical history. The risks of sleeve gastrectomy, Nii-en-Y gastric bypass, and duodenal switch surgery including bleeding, leak, wound infection, dehydration, ulcers, internal hernia, DVT/PE, prolonged nausea/vomiting, incomplete resolution of associated medical conditions, reflux, weight regain, vitamin/mineral deficiencies, and have been explained to the patient and Carmen Bledsoe has expressed understanding and acceptance of them. During the visit we used a print out from the MBSAQIP risk calculator which outlined the patients inherent risks, expected weight loss at 1 year, and chances of obesity related comorbidity resolution. The benefits of the above surgeries including weight loss, improvement/resolution of associated medical and mental health conditions, improved mobility, and decreased mortality have been explained the the patient and Carmen Bledsoe has expressed understanding and acceptance of them. - Labs were independently reviewed and interpreted by me. Any abnormal/normal results are indicatedbelow along with any plan of action from: August 10, 2023 HbA1c is 5.4 normal, well-controlled on medication - Imaging was independently reviewed and interpreted by me. Any abnormal/normal results are indicated below along with any plan of action from: none Plan: - I have arranged for the patient to see the following consultants:. - Bariatric pre-operative lab work - Mental Health Provider for the 'psych eval - [employer] - Will obtain old medical records to establish timeline and severity of morbid obesity - GI: Gastroesophageal reflux disease, we will need an EGD - Sleep: Stop Bang: Not required, currently has a diagnosis of sleep apnea And uses a CPAP - pulmonology: We will refer for clearance - Cardiac: We will refer for clearance - need cotinine prior to surgery due to history of smoking - MBSAQIP risk calculator print out was provided to the patient that included perioperative and postoperative risks, weight loss expectations during the first year and chances of obesity related medical comorbidity resolution Patient is interested in: Gastric bypass I spent greater than 60 minutes in total reviewing the patient's chart, interviewing the patient, and documenting today's visit. Coco Dean MD Bariatric and Minimally Invasive General Surgery documented in this [facility]03-12-2025 NotePatient Education Health Risks of Smoking Smoking tobacco is [...] and others take time. Benefits may include: ??? Blood flow, blood pressure, heart rate, and lung capacity may begin to improve. However, any lung damage that has already occurred cannot be repaired. ??? Respiratory symptoms from smoking, such as nasal congestion and cough, may improve over time. ??? Your risk of heart disease, stroke, and cancer is reduced. ??? The overall quality of your health may improve. ??? You may save money, as you will not spend money on tobacco products and may spend less money onsmoking-related health issues. What can increase my risk? Smoking harms nearly every organ in the body. People who smoke tobacco have a shorter life expectancy and an increased risk of many serious medical problems. These include: ??? More respiratory infections, such as colds and pneumonia. ??? Cancer. ??? Heart disease. ??? Stroke. ??? Chronic respiratory diseases. ??? Delayed wound healing and increased risk of complications during surgery. ??? Problems with reproduction, , and childbirth, such as infertility, early (premature) births, stillbirths, and defects. Secondhand smoke exposure to children increases the risk of: ??? Sudden infant syndrome (SIDS). ??? Infections in the nose, throat, or airways (respiratory infections). ??? Chronic respiratory symptoms. What actions can I take to quit? Smoking is an addiction that affects both your body and your mind, and long-time habits can be hardto change. Your health care provider can recommend: ??? Nicotine replacement products, such as patches, gum, and nasal sprays. Use these products only as directed. Do not replace cigarette smoking with electronic cigarettes, which are commonly called e-cigarettes. The safety of e- cigarettes is not known, and some may contain harmful chemicals. ??? Programs and community resources, which may include group support, education, or talk therapy. ??? Prescription medicines to help reduce cravings. ??? A combination of two or more quit methods, which may increase the success of quitting. Where to find support Follow the recommendations from your health care provider about support groups and other assistance. You can also visit: ??? [place]. Department of Health and Human Services: www.smokefree.gov ??? [place] [employer]: www.freedomfromsmoking.org ??? [place] [employer]: www.heart.org Where to find more information ??? Centers for Disease Control and Prevention: www.cdc.gov ??? World Health Organization: www.who.int Summary ??? Smoking tobacco is very bad for your health. Tobacco smoke contains many toxic chemicals that can damage every part of the body. ??? Smoking is difficult to quit because a chemical in tobacco, called nicotine, causes addiction or dependence. ??? There are immediate and long-term health benefits of quitting smoking. ??? A combination of two or more quit methods may increase the success of quitting. This information is not intended to replace advice given to you by your health care provider. Make sure you discuss any questions you have with your health care provider. Document Revised: 06/22/2022 Document Reviewed: 06/22/2022 Streamfile Patient Education ? 2023 [employer]. Cardiovascular Hypertension, Adult High blood pressure (hypertension) [...] conditions that result in high bloodpressure. What (more content not included)...[facility]02-26-2025 Hospital Discharge instructions Patient Education 08/29/2024 08:03:27 Type 2 Diabetes Mellitus, Self-Care, Adult Type [...] treat it right away. Always have a 74-odjjwqfdt-vkwuta carbohydrate snack with you to treat low [...] you how to adjust your dosage. Take xicd-nsd-ddknmap and prescription medicines only as told by [...] your health care provider once every year. [place] your teeth and gums two times a [...] meet with a certified diabetes care and individualized education plan aide? Where can I find a support group for people with diabetes? Where to find more information For help and guidance and for more information about diabetes, please visit: [place] [employer] (ADA): www.diabetes.org [place] [employer] Care and Education Specialists [...] provider. Document Revised: 11/18/2021 Document Reviewed: 11/18/2021 Streamfile Patient Education 2023 [employer]. 08/29/2024 08:03:26 Hypertension, Adult Hypertension, Adult High blood pressure [...] follow-up visits. This is important. Medicines Take xhcy-wqg-jjcvpzn and prescription medicines only as told by [...] provider. Document Revised: 04/27/2022 Document Reviewed: 04/27/2022 Streamfile Patient Education 2023 [employer]. 08/29/2024 08:03:25 High Cholesterol High Cholesterol High cholesterol is a condition in which the blood has high levels of a white, waxy substance similar to fat (cholesterol). The liver makes all the cholesterol that the body needs. The human body needs small amounts of cholesterol to help build cells. A person gets extra or excess cholesterol from the food that he or she eats. The blood carries cholesterol from the liver to the rest of the body. If you have high cholesterol,deposits (plaques) may build up on the alvarado of your arteries. Arteries are the blood vessels that carry blood away from your heart. These plaques make the arteries narrow and stiff. Cholesterol plaques increase your risk for heart attack and stroke. Work with your health care provider to keep your cholesterol levels in a healthy range. What increases the risk? The following factors may make you more likely to develop this condition: Eating foods that are high in animal fat (saturated fat) or cholesterol. Being overweight. Not getting enough exercise. A family history of high cholesterol (familial hypercholesterolemia). Use of tobacco products. Having diabetes. What are the signs or symptoms? In most cases, high cholesterol does not usually cause any symptoms. In severe cases, very high cholesterol levels can cause: Fatty bumps under the skin (xanthomas). A white or jackson ring around the black center (pupil) of the eye. How is this diagnosed? This condition may be diagnosed based on the results of a blood test. If you are older than 20 years of age, your health care provider may check your cholesterol levels every 4 6 years. You may be checked more often if you have high cholesterol or other risk factors for heart disease. The blood test for cholesterol measures: Bad cholesterol, or LDL cholesterol. This is the main type of cholesterol that causes heart disease. The desired level is less than 100 mg/dL (2.59 mmol/L). Good cholesterol, or HDL cholesterol. HDL helps protect against heart disease by cleaning the arteries and carrying the LDL to the liver for processing. The desired level for HDL is 60 mg/dL (1.55 mmol/L) or higher. Triglycerides. These are fats that your body can store or burn for energy. The desired level is less than 150 mg/dL (1.69 mmol/L). Total cholesterol. This measures the total amount of cholesterol in your blood and includes LDL, HDL, and triglycerides. The desired level is less than 200 mg/dL (5.17 mmol/L). How is this treated? Treatment for high cholesterol starts with lifestyle changes, such as diet and exercise. Diet changes. You may be asked to eat foods that have more fiber and less saturated fats or added sugar. Lifestyle changes. These may include regular exercise, maintaining a healthy weight, and quitting use of tobacco products. Medicines. These are given when diet and lifestyle changes have not worked. You may be prescribed astatin medicine to help lower your cholesterol levels. Follow these instructions at home: Eating and drinking Eat a healthy, balanced diet. This diet includes: ? Daily servings of a variety of fresh, frozen, or canned fruits and vegetables. ?Daily servings of whole grain foods that are rich in fiber. ?Foods that are low in saturated fats and trans fats. These include poultry and fish without skin, lean cuts of meat, and low-fat dairy products. ?A variety of fish, especially oily fish that contain omega-3 fatty acids. Aim to eat fish at least2 times a week. Avoid foods and drinks that have added sugar. Use healthy cooking methods, such as roasting, grilling, broiling, baking, poaching, steaming, and stir-frying. Do not hodges your food except for stir-frying. If you drink alcohol: ?Limit how much you have to: ?0 1 drink a day for women who are not . ?0 2 drinks a day for men. ?Know how much alcohol is in a drink. In the [place] one drink equals one 12 oz bottle of beer (355 mL), one 5 oz glass of wine (148 mL), or one 1 oz glass of hard liquor (44 mL). Lifestyle Get regular exercise. Aim to exercise for a total of 150 minutes a week. Increase your activity level by doing activities such as gardening, walking, and taking the stairs. Do not use any products that contain nicotine or tobacco. These products include cigarettes, chewing tobacco, and vaping devices, such as e-cigarettes. If you need help quitting, ask your health careprovider. General instructions Take luxo-gci-aievsgy and prescription medicines only as told by your health care provider. Keep all follow-up visits. This is important. Where to find more information [place] [employer]: www.heart.org National Heart, Lung, and Blood Guide [place]: www.nhlbi.nih.gov Contact a health care provider if: You have trouble achieving or maintaining a healthy diet or weight. You are starting an exercise program. You are unable to stop smoking. Get help right away if: You have chest pain. You have trouble breathing. You have discomfort or pain in your jaw, neck, back, shoulder, or arm. You have any symptoms of a stroke. BE FAST is an easy way to remember the main warning signs of astroke: ?B - Balance. Signs are dizziness, sudden trouble walking, or loss of balance. ?E - Eyes. Signs are trouble seeing or a sudden change in vision. ?F - Face. Signs are sudden weakness or numbness of the face, or the face or eyelid drooping on oneside. ?A - Arms. Signs are weakness or numbness in an arm. This happens suddenly and usually on one side of the body. ?S - Speech. Signs are sudden trouble speaking, slurred speech, or trouble understanding what people say. ?T - Time. Time to call emergency services. Write down what time symptoms started. You have other signs of a stroke, such as: ?A sudden, severe headache with no known cause. ?Nausea or vomiting. ?Seizure. These symptoms may represent a serious problem that is an emergency. Do not wait to see if the symptoms will go away. Get medical help right away. Call your local emergency services (911 in the [place] Do not drive yourself to the hospital. Summary Cholesterol plaques increase your risk for heart attack and stroke. Work with your health care provider to keep your cholesterol levels in a healthy range. Eat a healthy, balanced diet, get regular exercise, and maintain a healthy weight. Do not use any products that contain nicotine or tobacco. These products include cigarettes, chewing tobacco, and vaping devices, such as e-cigarettes. Get help right away if you have any symptoms of a stroke. This information is not intended to replace advice given to you by your health care provider. Make sure you discuss any questions you have with your health care provider. Document Revised: 01/21/2023 Document Reviewed: 08/24/2021 Elsevier Patient Education 2023 [employer]. Follow Up Care 02/22/2024 14:05:28 With:Yocasta SMITH, 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, Myron Hamilton Address: [address] [place] [phone] When:Within 6 Month(s) Comments:chronic care [facility] 02-26-2025 NotePatient Education Cardiovascular Hypertension, Adult High blood pressure [...] these risk factorsare under your control, including: ??? Smoking. ??? Not getting enough exercise or physical activity. ??? Being overweight. ??? Having too much fat, sugar, calories, or salt (sodium) in your diet. ??? Drinking too much alcohol. Other risk factors include: ??? Having a personal history of heart disease, diabetes, high cholesterol, or kidney disease. ??? Stress. ??? Having a family history of high blood pressure and high cholesterol. ??? Having obstructive sleep apnea. ??? Age. The risk increases with age. What are the signs or symptoms? High blood pressure may not cause symptoms. Very high blood pressure (hypertensive crisis) may cause: ??? Headache. ??? Fast or irregular heartbeats (palpitations). ??? Shortness of breath. ??? Nosebleed. ??? Nausea and vomiting. ??? Vision changes. ??? Severe chest pain, dizziness, and seizures. How [...] risk factors, you may be asked to: ??? Return on a different day to have your blood pressure checked again. ??? Monitor your blood pressure at home for [...] your blood pressure under control and if: ??? Your systolic blood pressure is above 130. ??? Your diastolic blood pressure is above 80. Your personal target blood pressure may vary depending on your medical conditions, your age, and other factors. Follow these instructions at home: Eating and drinking ??? Eat a diet that is high in [...] higher in sodium, added sugar, and fat. ??? Reduce your daily sodium intake. Many people with hypertension should eat less than 1,500 mg ofsodium a day. ??? Do not drink alcohol if: ? Your health care provider tells you not to drink. ? You are , may be , or are planning to become . ??? If you drink alcohol: ? Limit how much you have to: ? 0?1 drink a day for women. ? 0?2 drinks a day for men. ? Know how much alcohol is in your drink. In the [place] one drink equals one 12 oz bottle (more content not included)...[facility]01-15-2025 Hospital Discharge instructions Patient Education 07/18/2024 12:21:31 Alcohol Misuse and Dependence Information, Adult Alcohol Misuse and Dependence Information, Adult Alcohol is a widely available drug and people choose to drink alcohol in different amounts. Alcoholmisuse and dependence can have a negative effect on your life. Alcohol misuse is when you use alcohol too much or too often. You may have a hard time setting a limit on the amount you drink. Alcohol dependence is when you use alcohol consistently for a period of time, and your body changesas a result. Alcohol dependence can make it hard for you to stop drinking because you may start to feel sick or different when you do not drink alcohol. These symptoms are known as withdrawal. People who drink alcohol very often and in large amounts, may develop what is called an alcohol usedisorder. How can alcohol misuse and dependence affect me? Drinking too much can lead to addiction. You may feel like you need alcohol to function normally. You may drink alcohol before work in the morning, during the day, or as soon as you get home from work in the evening. These actions can result in: Poor work performance. Job loss. Financial problems. Car crashes or criminal charges from driving after drinking alcohol. Problems in your relationships with friends and family. Losing the trust and respect of coworkers, friends, and family. Drinking heavily over a long period of time can permanently damage your body and brain, and can cause lifelong health issues, such as: Damage to your liver or pancreas. Heart problems, high blood pressure, or stroke. Certain cancers. Decreased ability to fight infections. Brain or nerve damage. Depression. Early , also called premature . If you are careless or you crave alcohol, it is easy to drink more than your body can handle (overdose). Alcohol overdose is a serious situation that requires hospitalization. It may lead to permanent injuries or . What can increase my risk? Having a family history of alcohol misuse. Having depression or other mental health conditions. Beginning to drink at an early age. Binge drinking often. Experiencing trauma, stress, and an unstable home life during childhood. Spending time with people who drink often. What actions can I take to prevent alcohol misuse and dependence? Do not drink alcohol if: ?Your health [...] oz glass of hard liquor (44 mL). If you think you have an alcohol dependency problem, decide to stop drinking. This can be very hardto do if you are used to frequently drinking alcohol. If you begin to have withdrawal symptoms, talk with your health care provider or a person that you trust. These symptoms may include anxiety, shaky hands, headache, nausea, sweating, or not being able to sleep. Choose to drink nonalcoholic beverages in social gatherings and places where there may be alcohol. Activity Spend more time on activities that you enjoy that do not involve alcohol, like hobbies or exercise. Find healthy ways to cope with stress, such as meditation or spending time with people you care about. General information Talk to your family, coworkers, and friends about supporting you in your efforts to stop drinking. If they drink, ask them not to drink around you. Spend more time with people who do not drink alcohol. If you think that you have an alcohol dependency problem: ?Tell friends or family about your concerns. ?Talk with your health care provider or another health professional about where to get help. ?Work with a therapist and a chemical dependency counselor. ?Consider joining a support group for people who struggle with alcohol misuse and dependence. Where to find support Your health care provider. SMART Recovery: smartrecovery.org Local treatment centers or chemical dependency counselors. Local AA groups in your community: aa.org Where to find more information Centers for Disease Control and Prevention: cdc.gov National Guide [place] on Alcohol Abuse and Alcoholism: niaaa.nih.gov Alcoholics Anonymous (AA): aa.org Contact a health care provider if: You drank more or for longer than you intended on more than one occasion. You often drink to the point of vomiting or passing out. You have problems in your life due to drinking, but you continue to drink. You keep drinking even though you feel anxious, depressed, or have experienced memory loss. You have stopped doing the things you used to enjoy in order to drink. You have to drink more than you used to in order to get the effect you want. You experience anxiety, sweating, nausea, shakiness, and trouble sleeping when you try to stop drinking. Get help right away if: You have serious withdrawal symptoms, including: ?Confusion. ?Racing heart. ?High blood pressure. ?Fever. These symptoms may be an emergency. Get help right away. Call 911. Do not wait to see if the symptoms will go away. Do not drive yourself to the hospital. Also, get help right away if: You have thoughts about hurting yourself or others. Take one of these steps if you feel like you may hurt yourself or others, or have thoughts about taking your own life: Call 911. Call the National Suicide Prevention Lifeline at or 160. This is open 24 hours a day. Text the Crisis Text Line at 517060. Summary Alcohol misuse and dependence can have a negative effect on your life. Drinking too much or too often can lead to addiction. If you drink alcohol, limit how much you use. If you are having trouble keeping your drinking under control, find ways to change your behavior. Hobbies, calming activities, exercise, or support groups can help. If you feel you need help with changing your drinking habits, talk with your health care provider, a good friend, or a therapist, or go to a support group. This information is not intended to replace advice given to you by your health care provider. Make sure you discuss any questions you have with your health care provider. Document Revised: 08/25/2022 Document Reviewed: 08/25/2022 Streamfile Patient Education 2023 [employer]. 07/18/2024 12:21:13 Type 2 Diabetes Mellitus, Self-Care, Adult Type [...] treat it right away. Always have a 00-jzrwcqkaq-odjift carbohydrate snack with you to treat low [...] you how to adjust your dosage. Take hlep-fgf-zpnwdcs and prescription medicines only as told by [...] your health care provider once every year. [place] your teeth and gums two times a [...] meet with a certified diabetes care and individualized education plan aide? Where can I find a support group for people with diabetes? Where to find more information For help and guidance and for more information about diabetes, please visit: [place] [employer] (ADA): www.diabetes.org [place] [employer] Diabetes Care and Education Specialists [...] provider. Document Revised: 11/18/2021 Document Reviewed: 11/18/2021 Streamfile Patient Education 2023 [employer]. Follow Up Care 07/11/2024 12:07:33 With:Yocasta SMITH, 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, Myron Hamilton Address: [address] [place] [phone] When: only if needed Comments:keep next month appt [facility] 01-15-2025 NotePatient Education Endocrinology Type 2 Diabetes Mellitus, Self-Care, Adult Caring for yourself after you have been diagnosed with type 2 diabetes (type 2 diabetes mellitus) means keeping your blood sugar (glucose) under control with a balance of: ??? Nutrition. ??? Exercise. ??? Lifestyle changes. ??? Medicines or insulin, if needed. ??? Support from your team of health care providers and others. What are the risks? Having type 2 diabetes can put you at risk for other long-term (chronic) conditions, such as heart disease and kidney disease. Your health care provider may prescribe medicines to help prevent complications from diabetes. How to monitor your blood glucose ??? Check your blood glucose every day or as often as told by your health care provider. ??? Have your A1C (hemoglobin A1C) level checked two or more times a year, or as often as told by your health care provider. ??? Your health care provider will set personalized treatment goals for you. Generally, the goal oftreatment is to maintain the following blood glucose levels: ? Before meals: 80?130 mg/dL (4.4?7.2 mmol/L). ? After meals: below 180 mg/dL (10 mmol/L). ? A1C level: less than 7%. How to manage hyperglycemia and hypoglycemia Hyperglycemia symptoms Hyperglycemia, also called high blood glucose, occurs when blood glucose is too high. Make sure youknow the early signs of hyperglycemia, such as: ??? Increased thirst. ??? Hunger. ??? Feeling very tired. ??? Needing to urinate more often than usual. ??? Blurry vision. Hypoglycemia symptoms Hypoglycemia, also called [...] treat it right away. Always have a 23-evnidutbt-jjpweo carbohydrate snack with you to treat low blood glucose. Family members and close friends should also know the symptoms and understand how to treat hypoglycemia, in case you are not able to treat yourself. Symptoms may include: ??? Hunger. ??? Anxiety. ??? Sweating and feeling clammy. ??? Dizziness or feeling light-headed. ??? Sleepiness. ??? Increased heart rate. ??? Irritability. ??? Tingling or numbness around the mouth, lips, or tongue. ??? Restless sleep. Severe hypoglycemia is when your [...] available. Follow these instructions at home: Medicines ??? Take prescribed insulin or diabetes medicines as told by your health care provider. ??? Do not run out of insulin or other diabetes medicines. Plan ahead so you always have these available. ??? If you use insulin, adjust your dosage based on your physical activity and what foods you eat. Your health care provider will tell you how to adjust your dosage. ??? Take sjik-thq-kdwexry and prescription medicines only as told by [...] right for you. Make sure that you: ??? Follow instructions from your health care provider about eating or drinking restrictions. ??? Drink enough fluid to keep your urine pale yellow. ??? Keep a record of the carbohydrates that you eat. Do this by reading food labels and learning the standard serving sizes of foods. ??? Follow your sick-day plan whenever you cannot eat or drink as usual. Make this plan in advance with your health care provider. Activity ??? Stay active. Exercise regularly, as told by [...] or more days of the week. ? (more content not included)...[facility]01-10-2025 NoteNurse Consultation Note Reason for Visit fasting labs Assessment/Plan 1. Benign hypertension (I10: Essential (primary) hypertension) 2. Alcohol problem drinking (F10.90: Alcohol use, unspecified, uncomplicated) 3. Elevated LFTs (R79.89: Other specified abnormal findings of blood chemistry) 4. Elevated liver transaminase level (R74.01: Elevation of levels of liver transaminase levels) 5. Fatty liver (K76.0: Fatty (change of) liver, not elsewhere classified) 6. Hepatomegaly (R16.0: Hepatomegaly, not elsewhere classified) Medications Abilify 5 mg Tab, 5 mg= 1 tab(s), Oral, Daily, 4 refills Advair Diskus 100 mcg-50 mcg inhalation powder, See Instructions albuterol 0.083% Inh Rochelle 3 mL, 2.5 mg= 3 mL, Inhalation, q6hr, PRN, 1 refills Alcohol wipes, See Instructions, 3 refills Bentyl 10 mg Cap, 20 mg= 2 cap(s), Oral, QID, PRN Crestor 40 mg Tab, 40 mg= 1 tab(s), Oral, Daily, 3 refills FLUoxetine 20 mg Cap, 40 mg= 2 cap(s), Oral, Daily, 1 refills furosemide 40 mg Tab, 40 mg= 1 tab(s), Oral, Daily, 1 refills gabapentin 300 mg Cap, 300 mg= 1 cap(s), TID glipiZIDE 2.5 mg ER Tab, 2.5 mg= 1 tab(s), Oral, Daily, 1 refills Glucometer, See Instructions Jardiance 10 mg oral tablet, 10 mg, Oral, Daily, 3 refills Lancets, See Instructions, 3 refills Nebulizer Machine, See Instructions Nebulizer Tubing and Mouthpiece Kit, See Instructions Pantoprazole [address] Tab, 40 mg= 1 tab(s), Oral, Daily, 3 refills potassium chloride 20 mEq ER Tab, 20 mEq= 1 tab(s), Oral, Daily, 1 refills Singulair 10 mg Tab, 10 mg= 1 tab(s), Oral, qPM, 2 refills Spiriva Respimat 1.25 mcg/inh inhalation aerosol, 2 puff(s), Inhalation, Daily, 3 refills spironolactone 25 mg Tab, 25 mg= 1 tab(s), Oral, Daily, 1 refills Test Strips, See Instructions, 3 refills tiZANidine 4 mg Tab, 4 mg= 1 tab(s), Oral, q8hr, PRN Trulicity Pen 3 mg/0.5 mL subcutaneous solution, 3 mg, SubCutaneous, qWeek, 2 refills Ventolin HFA 90 mcg/inh Aerosol-Adpt, 2 puff(s), Inhalation, q6hr, PRN, 1 refills Vitamin D3 5000 intl units oral capsule, 5000 International_Unit= 1 cap(s), Oral, Daily, 1 refills Allergies amLODIPine (Leg Edema) lisinopril (Persistent cough, Tongue swelling) metFORMIN (Diarrhea) Immunizations Vaccine Date Status influenza virus vaccine, inactivated 07/11/2024 Given influenza virus vaccine, inactivated 03/18/2023 Given influenza virus vaccine, inactivated 05/11/2022 Recorded SARS-CoV-2 (COVID-19) mRNAMUL.ORD![id number] 05/11/2022 Recorded SARSCoV2 mRNA(ifkdiypth-fvea-kvizlr) vac 12/15/2021 Recorded SARS-CoV-2 (COVID-19) mRNA BNT-162b2 vax 06/12/2021 Recorded influenza virus vaccine, inactivated 05/05/2021 Recorded SARS-CoV-2 (COVID-19) mRNA BNT-162b2 vax 10/06/2020 Recorded SARS-CoV-2 (COVID-19) mRNA BNT-162b2 vax 09/16/2020 Recorded zoster vaccine live 07/09/2020 Recorded pneumococcal 23-valent vaccine 04/10/2020 Recorded zoster vaccine live 04/10/2020 Recorded tetanus toxoid 04/10/2020 Recorded influenza virus vaccine, inactivated 04/10/2020 Recorded influenza virus vaccine, inactivated 05/08/2019 Recorded influenza virus vaccine, inactivated 04/24/2018 Recorded influenza virus vaccine, inactivated 03/19/2018 Recorded pneumococcal 23-valent vaccine 12/16/2017 Recorded diphtheria/pertussis, acel/tetanus adult 10/27/2014 [facility] NotePatient Education Infectious Disease Diarrhea, Adult Diarrhea is frequent loose and sometimes watery bowel movements. Diarrhea can make you feel weak and cause you to become dehydrated. Dehydration is a condition in which there is not enough water or other fluids in the body. Dehydration can make you tired and thirsty, cause you to have a dry mouth, and decrease how often you urinate. Diarrhea typically lasts 2?3 days. However, it can last longer if it is a sign of something more serious. It is important to treat your diarrhea as told by your health care provider. Follow these instructions at home: Eating and drinking Follow these recommendations as told by your health care provider: ??? Take an oral rehydration solution (ORS). This is an jfgf-wmk-fgvydar medicine that helps returnyour body to its normal balance of nutrients and water. It is found at pharmacies and retail stores. ??? Drink enough fluid to keep your urine pale yellow. ? Drink fluids such as water, diluted fruit juice, and low-calorie sports drinks. You can drink milk also, if desired. Sucking on ice chips is another way to get fluids. ? Avoid drinking fluids that contain a lot of sugar or caffeine, such as soda, energy drinks, and regular sports drinks. ? Avoid alcohol. ??? Eat bland, elmv-lg-lwmcoc foods in small amounts as you are able. These foods include bananas, applesauce, rice, lean meats, toast, and crackers. ??? Avoid spicy or fatty foods. Medicines ??? Take ncgi-fyj-ntfmlsn and prescription medicines only as told by your health care provider. ??? If you were prescribed antibiotics, take them as told by your health care provider. Do not stopusing the antibiotic even if you start to feel better. General instructions ??? Wash your hands often using soap and water for at least 20 seconds. If soap and water are not available, use hand chief operating engineer. Others in the household should wash their hands as well. Hands should be washed: ? After using the toilet or changing a diaper. ? Before preparing, cooking, or serving food. ? While caring for a sick person or while visiting someone in a hospital. ??? Rest at home while you recover. ??? Take a warm bath to relieve any burning or pain from frequent diarrhea episodes. ??? Watch your condition for any changes. Contact a health care provider if: ??? You have a fever. ??? Your diarrhea gets worse. ??? You have new symptoms. ??? You vomit every time you eat or drink. ??? You feel light-headed, dizzy, or have a headache. ??? You have muscle cramps. ??? You have signs of dehydration, such as: ? Dark urine, very little urine, or no urine. ? Cracked lips. ? Dry mouth. ? Sunken eyes. ? Sleepiness. ? Weakness. ??? You have bloody or black stools or stools that look like tar. ??? You have severe pain, cramping, or bloating in your abdomen. ??? Your skin feels cold and clammy. ??? You feel confused. Get help right away if: ??? You have chest pain or your heart is beating very quickly. ??? You have trouble breathing or you are breathing very quickly. ??? You feel extremely weak or you faint. These symptoms may be an emergency. Get help right away. Call 911. ??? Do not wait to see if the symptoms will go away. ??? Do not drive yourself to the hospital. This information is not intended to replace advice given to you by your health care provider. Make sure you discuss any questions you have with your health care provider. Document Revised: 12/07/2022 Document Reviewed: 12/07/2022 Elsevier Patient Education ? 2023 [employer]. Mental and Behavioral Health Alcohol Misuse and Dependence Information, Adult Alcohol is a widely available drug and people choose to drink alcohol in different amounts. Alcoholmisuse and dependence can have a negative effect on your life. Alcohol misuse is when you use alcohol too much or too often. You may have a hard time setting a limit on the amount you drink. Alcohol dependence is when you use alcohol consistently for a period of time, and your body changesas a result. Alcohol dependence can make it hard for you to stop drinking because you may start to feel sick or different when you do not drink alcohol. These symptoms are known as withdrawal. People who drink alcohol very often and in large amounts, may develop what is called an alcohol usedisorder. How can alcohol misuse and dependence affect me? Drinking too much can lead to addiction. You may feel like you need alcohol to function normally. You may drink alcohol before work in the morning, during the day, or as soon as you get home from work in the evening. These actions can result in: ??? Poor work performance. ??? Job loss. ??? Financial problems. ??? Car crashes or criminal charges from driving after drinking alcohol. ??? Problems in your relationships with friends and family. ??? (more content not included)...[facility]01-02-2025 Hospital Discharge instructions Follow Up Care 07/05/2024 08:14:42 With:nurse visit Address: When:2 to 3 days Comments:fasting labs With:Yocasta MSN, 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[employer], Myron Hamilton Address: [address] [place] [phone] When:Within 1 Week(s) Comments:chronic care [facility] [place] 08-21-2024 Hospital Discharge instructions Patient Education 02/22/2024 08:31:38 Type 2 Diabetes Mellitus, Self-Care, Adult Type [...] treat it right away. Always have a 15-gzxjxqohf-srdbjz carbohydrate snack with you to treat low [...] you how to adjust your dosage. Take jjeq-wno-ectowsq and prescription medicines only as told by [...] your health care provider once every year. [place] your teeth and gums two times a [...] meet with a certified diabetes care and individualized education plan aide? Where can I find a support group for people with diabetes? Where to find more information For help and guidance and for more information about diabetes, please visit: [place] [employer] (ADA): www.diabetes.org [place] [employer] of Diabetes Care and Education Specialists [...] provider. Document Revised: 11/18/2021 Document Reviewed: 11/18/2021 Streamfile Patient Education 2022 [employer]. 02/22/2024 08:31:36 Mediterranean Diet Mediterranean Diet A Mediterranean diet [...] in common dishes like chili or lasagna. Staley with different cooking methods. Try roasting, broiling, [...] available, such as: ?Vegetable sticks with hummus. ?British yogurt. ?Fruit and nut trail mix. Eat [...] Quinoa. Meats and other proteins Beans. Almonds. [place] seeds. [place] nuts. Peanuts. Cod. [place]. Scallops. Shrimp. Tuna. Tilapia. Clams. Oysters. Eggs. Poultry without skin. Dairy Low-fat milk. Cheese. British yogurt. Fats and oils Extra-virgin olive oil. Avocado oil. Grapeseed oil. Beverages Water. Red wine. Herbal tea. Sweets and desserts British yogurt with honey. Baked apples. Poached pears. [place] mix. Seasonings and condiments Basil. Cilantro. Coriander. [...] Fruit canned in syrup. Vegetables Deep-fried potatoes (brazilian fries). Grains Prepackaged pasta or rice dishes. [...] provider. Document Revised: 07/25/2020 Document Reviewed: 05/22/2020 Streamfile Patient Education 2022 [employer]. 02/22/2024 08:31:35 Hypertension, Adult Hypertension, Adult High blood pressure [...] follow-up visits. This is important. Medicines Take iwgh-vyq-hxpfsug and prescription medicines only as told by [...] provider. Document Revised: 04/27/2022 Document Reviewed: 04/27/2022 [employer] Patient Education 2022 [employer]. 02/22/2024 08:31:33 Health Risks of Smoking Health Risks of [...] Department of Health and Human Services: www.smokefree.gov [place] [employer]: www.freedomfromsmoking.org [place] [employer] Association: www.heart.org Where to find more [...] provider. Document Revised: 06/22/2022 Document Reviewed: 06/22/2022 Streamfile Patient Education 2022 [employer]. Follow Up Care 11/25/2023 14:56:18 With:Yocasta SMITH, 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[employer], Myron Hamilton Address: [address] [place] [phone] When:Within 6 Month(s) Comments:chronic care [facility] [place] 08-21-2024 NotePatient Education Cardiovascular Hypertension, Adult High blood pressure [...] these risk factorsare under your control, including: ? Smoking. ? [...] 5 oz glass of wine (148 mL), (more content not included)...[facility]06-24-2024 Note [id number] Hospital Discharge instructions Patient Education 12/23/2023 13:17:05 Colonoscopy, Care After Surgery Heather (CUSTOM) Colonoscopy Care After Surgery Please read the instructions outlined below and refer to this sheet in the next few weeks. These discharge instructions provide you with general information on caring [facility] Your doctor may also give you [...] Heavy or fried foods are harder to digestand may make you feel nauseated (sick to [...] Follow Up Care 11/02/2023 11:19:36 With:Marjan SAMPSON, Walker Pritchett, KAMALJIT, [facility] Address: [address] [place] [address], [address] [phone] When: Unknown Comments:Call Office in 2 weeks for results or follow-up Appt. [facility]06-21-2024 Evaluation + Plan noteExtracted from: Title:ANES Post-operative Note---General Author: Zaid Benz MD Date:12/23/23 Plan Transfer/Discharge: Transfer/Discharge Discharge when meets criteria ( To home ). Extracted from: Title:ANES Pre-operative Note 2022 Author:Zaid Rojas Date:12/23/23 Plan [place] [employer] of Anesthesiologists (ASA) physical status classification: Class III. Anesthetic Preoperative Plan: Anesthesia General. Future Appointments Appointment Date:01/27/2024 10:00:00 AM Scheduled Provider:Walker Phillip MD Location:[facility] Digestive Health Appointment Type:BADH Follow Up Appointment Date:02/22/2024 01:20:00 PM Scheduled Provider:Yocasta SMITH, 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Myron VILLATORO Location:[facility] [place] Appointment Type:FM Open Appointment Date:06/05/2024 01:00:00 PM Scheduled Provider:Alirio Ramirez MD [facility] [place] [facility] Type:Cardiology Follow Up (FT) Future Scheduled Tests Laboratory* Hep B Core Ab, Tot 11/02/23 * Mcgeq-3-Tpkippuorsv 11/02/23 * B-Type Natriuretic Peptide 10/25/23 * [...] * Iron Level 11/02/23 * PT 11/02/23 [facility]05-23-2024 Hospital Discharge instructions Patient Education 11/24/2023 19:09:12 [...] asked to follow these instructions. Medicines Take qqhk-mxf-owmblge and prescription medicines only as told by your health care provider. Do not start taking any new medicine unless your health care provider has approved. These include soix-fwh-hgaqitt medicines, vitamins, herbs, and supplements. Some of [...] provider. Document Revised: 05/19/2022 Document Reviewed: 05/19/2022 Streamfile Patient Education 2022 [employer]. 11/24/2023 19:09:12 Hepatomegaly Hepatomegaly Hepatomegaly is when [...] asked to follow these instructions. Medicines Take nukd-xjp-uvmpziw and prescription medicines only as told by your health care provider. Do not start taking any new medicine unless your health care provider has approved. These include lyop-nnx-mpyfalq medicines, vitamins, herbs, and supplements. Some of [...] provider. Document Revised: 05/19/2022 Document Reviewed: 05/19/2022 Streamfile Patient Education 2022 [employer]. 11/24/2023 19:09:07 Type 2 Diabetes Mellitus, Self-Care, [...] treat it right away. Always have a 12-hoozwztdd-xptqyj carbohydrate snack with you to treat low [...] you how to adjust your dosage. Take bwlv-ntn-uqedtzk and prescription medicines only as told by [...] your health care provider once every year. [place] your teeth and gums two times a [...] meet with a certified diabetes care and individualized education plan aide? Where can I find a support group for people with diabetes? Where to find more information For help and guidance and for more information about diabetes, please visit: [place] [employer] Association (ADA): www.diabetes.org [place] [employer] of Diabetes Care and Education Specialists [...] provider. Document Revised: 11/18/2021 Document Reviewed: 11/18/2021 Streamfile Patient Education 2022 [employer]. 11/24/2023 19:09:06 Mediterranean Diet Mediterranean Diet A [...] in common dishes like chili or lasagna. Staley with different cooking methods. Try roasting, broiling, [...] available, such as: ?Vegetable sticks with hummus. ?British yogurt. ?Fruit and nut trail mix. Eat [...] Quinoa. Meats and other proteins Beans. Almonds. [place] seeds. [place] nuts. Peanuts. Cod. [place]. Scallops. Shrimp. Tuna. Tilapia. Clams. Oysters. Eggs. Poultry without skin. Dairy Low-fat milk. Cheese. British yogurt. Fats and oils Extra-virgin olive oil. Avocado oil. Grapeseed oil. Beverages Water. Red wine. Herbal tea. Sweets and desserts British yogurt with honey. Baked apples. Poached pears. [place] mix. Seasonings and condiments Basil. Cilantro. Coriander. [...] Fruit canned in syrup. Vegetables Deep-fried potatoes (brazilian fries). Grains Prepackaged pasta or rice dishes. [...] provider. Document Revised: 07/25/2020 Document Reviewed: 05/22/2020 Streamfile Patient Education 2022 [employer] Follow Up Care 10/26/2023 14:06:56 With:Yocasta SMITH, 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[employer], Myron Hamilton Address: [address] [place] [phone] When:Within 3 Month(s) Comments:chronic care [facility] [place] 05-09-2024 NoteEchocardiology Procedure Exam Date/Time Accession # Ordering Dr. Ferrer Transthoracic 11/08/2023 15:28 EDT [id number] Alirio Ramirez MD CPT code 26611 [id number] Reason for Exam (Echo Transthoracic Complete) I50.30;Other (please specify) Report [address] [address] Adult Echocardiogram Report Name: CARMEN BLEDSOE Study Date: 11/08/2023 02:50 PM BP: 128/85 mmHg Patient Location: CD:[id number] [facility] HR: 66 : 1960 Gender: Female Height: 6 in Age: 62 yrs Ethnicity: [facility] Weight: 328 lb Reason For Study: CHF BSA: 0.43 m2 History: High Cholesterol,HTN,Smoker-Yes,Morbid obesity Ordering Physician: Adam^Alirio^Sandie Referring Physician: Alirio Ramirez Performed By: Philomena Gusman, MARIA R, RVT Interpretation Summary Grossly normal LV and [...] Signed by: Alirio Ramirez MD Transcribed by: [facility] Technologist: [facility]04-24-2024 Hospital Discharge instructions Patient Education 10/26/2023 08:53:49 [...] by your health care provider. Medicines Take xbzg-mrv-iebcfpl and prescription medicines only as told by [...] provider. Document Revised: 02/22/2022 Document Reviewed: 02/22/2022 Streamfile Patient Education 2022 [employer] 10/26/2023 08:53:45 Heart Failure, Self-Care Heart Failure, [...] when you have heart failure Medicines Take wyno-zoy-webphlf and prescription medicines only as told by [...] provider. Document Revised: 09/28/2022 Document Reviewed: 01/10/2021 Streamfile Patient Education 2022 [employer]. 10/26/2023 08:53:36 DASH Eating Plan DASH Eating [...] Dairy Whole or 2% milk, cream, and vmhw-ixi-zwcj. Whole or full-fat cream cheese. Whole-fat or [...] more information National Heart, Lung, and Blood Guide [place]: www.nhlbi.nih.gov [place] [employer] Association: www.heart.org Academy of Nutrition and [...] provider. Document Revised: 05/23/2020 Document Reviewed: 05/23/2020 Streamfile Patient Education 2022 [employer]. Follow Up Care 10/11/2023 15:08:26 With:Yocasta SMITH, 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[employer]SETTER [employer], Myron Hamilton Address: [address] [place] [phone] When:Within 1 Month(s) [facility] [place] 04-08-2024 Hospital Discharge instructions [...] treat it right away. Always have a 25-sxmeotbyt-kspdjk carbohydrate snack with you to treat low [...] you how to adjust your dosage. Take egwt-xaw-dpdumrr and prescription medicines only as told by [...] your health care provider once every year. [place] your teeth and gums two times a [...] meet with a certified diabetes care and individualized education plan aide? Where can I find a support group for people with diabetes? Where to find more information For help and guidance and for more information about diabetes, please visit: [place] [employer] Association (ADA): www.diabetes.org [place] [employer] of Diabetes Care and Education Specialists [...] provider. Document Revised: 11/18/2021 Document Reviewed: 11/18/2021 Streamfile Patient Education 2022 [employer]. 10/10/2023 07:17:21 Heart Failure Exacerbation Heart Failure [...] Follow these instructions at home: Medicines Take tipe-hrr-yvlbalb and prescription medicines only as told by your health care provider. Do not stop taking your medicines or change the amount you take. If you are having problems or sideeffects from your medicines, talk to your health care provider. If you are having difficulty paying for your medicines, contact a social welfare research worker or your clinic. There are many [...] provider. Document Revised: 09/28/2022 Document Reviewed: 01/10/2021 Streamfile Patient Education 2022 [employer]. Follow Up Care 10/07/2023 10:35:27 With:Yocasta SMITH, 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PINSETTER [employer], Myron Hamilton Address: [address] [place] [phone] When:Within 2 Week(s) Comments:chronic care [facility] [place] 02-07-2024 Evaluation + Plan note Diagnostic Tests Pending * CBC w/ Auto Diff 08/10/23 * Comprehensive Metabolic Panel 08/10/23 * HgbA1c 08/10/23 * Lipid Panel 08/10/23 * Microalbumin Level Urine 08/10/23 * D-Dimer 08/10/23 Future Scheduled Tests Laboratory* Vitamin D 25 Hydroxy 10/13/22 * Creatine Kinase 10/13/22 Radiology* US LE Venous Duplex Insufficiency Bilat 10/13/22 [facility] [place] 02-06-2024 Hospital Discharge instructions Patient Education [...] pray, or go to a place of congregational. Do some deep breathing. To do this, [...] sugars, or salt (sodium). General instructions Take ejgc-cex-wldbzpl and prescription medicines only as told by [...] (ADAA): www.adaa.org Mental Health [place]: www.mentalhealthamerica.net National [place] on Mental Illness: www.param.org Contact a health [...] department or: Call your local emergency services (911 in the U.S.). Call a suicide crisis helpline, such as the National Suicide Prevention Lifeline at or 040 in the U.S. This is open 24 hours a day in the [place] Text the Crisis Text Line at 707712 (in the [place].S.). Summary If you are [...] provider. Document Revised: 01/13/2022 Document Reviewed: 04/30/2020 Streamfile Patient Education 2022 [employer]. 08/09/2023 20:20:14 Hypertension, Adult Hypertension, Adult High [...] follow-up visits. This is important. Medicines Take ykzs-hkz-thwehgf and prescription medicines only as told by [...] provider. Document Revised: 04/27/2022 Document Reviewed: 04/27/2022 Streamfile Patient Education 2022 [employer]. 08/09/2023 20:20:10 Type 2 Diabetes Mellitus, Self-Care, [...] treat it right away. Always have a 08-bmfsysxpi-ndaalz carbohydrate snack with you to treat low [...] you how to adjust your dosage. Take gaia-mmd-qtmmkfq and prescription medicines only as told by [...] your health care provider once every year. [place] your teeth and gums two times a [...] meet with a certified diabetes care and individualized education plan aide? Where can I find a support group for people with diabetes? Where to find more information For help and guidance and for more information about diabetes, please visit: [place] Diabetes Association (ADA): www.diabetes.org [place] Association of Diabetes Care and Education Specialists [...] provider. Document Revised: 11/18/2021 Document Reviewed: 11/18/2021 Streamfile Patient Education 2022 [employer]. 08/09/2023 20:20:09 Health Risks of Smoking Health [...] Department of Health and Human Services: www.smokefree.gov [place] Lung Association: www.freedomfromsmoking.org [place] Heart Association: www.heart.org Where to find more [...] provider. Document Revised: 06/22/2022 Document Reviewed: 06/22/2022 Streamfile Patient Education 2022 [employer]. 08/09/2023 20:20:08 DASH Eating Plan DASH Eating [...] Dairy Whole or 2% milk, cream, and nsay-xni-wtky. Whole or full-fat cream cheese. Whole-fat or sweetened yogurt. Full-fat cheese. Nondairy creamers. Whipped toppings. Processed cheese and cheese spreads. Fats and oils Butter. Stick margarine. Lard. Shortening. Ghee. Manjarrez fat. Tropical oils, such as coconut, palm kernel, or palm oil. Seasonings and condiments Onion salt, garlic salt, seasoned salt, table salt, and sea salt. [facility] sauce. Tartar sauce. Barbecue sauce. Teriyaki sauce. [...] more information National Heart, Lung, and Blood Guide Rock: www.nhlbi.nih.gov [place] Heart Association: www.heart.org Academy of Nutrition and [...] provider. Document Revised: 05/23/2020 Document Reviewed: 05/23/2020 Streamfile Patient Education 2022 [employer]. Follow Up Care 11/26/2022 13:53:51 With:Yocasta SMITH, 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[employer], Myron Machado. Address: [address] [place], [place] [phone] When:Within 6 Month(s) Comments:chronic care [facility] [place] 01-18-2024 History of Present illness Narrative* Arlene Zuñiga - 07/21/2023 10:30 AM EST Occupational Therapy [facility] Date: 07/21/2023 Patient Name: Carmen Bledsoe : 1960 Pt Cancelled Appt due to left voice mail with no reason for cancel. Arlene Zuñiga Date: 07/21/2023 [facility] History of Present illness Narrative* Lisseth Luu - 07/20/2023 3:00 PM EST Physical Therapy [facility] Date: 07/20/2023 Patient Name: Carmen Bledsoe DOB: 1960 Patient called to cancel Appt., did not state a reason for cancellation. Lisseth Bell Date: 07/20/2023 [facility] History of Present illness Narrative* DrakeClaudiaLisseth Moreno - 07/14/2023 10:30 AM EST Physical Therapy [facility] Date: 07/14/2023 Patient Name: Carmen Bledsoe DOB: 1960 Patient called to cancel, did not give a reason. She said she will be at her next scheduled appointment on 07/19/23. Lisseth Bell Date: 07/14/2023 documented in [facility] History of Present illness Narrative* Arlene Zuñiga - 07/08/2023 1:30 PM EST Occupational Therapy [facility] Date: 07/08/2023 Patient Name: Carmen Bledsoe DOB: 1960 Pt Cancelled Appt due to no reason for cancel. Arlene Zuñiga Date: 07/08/2023 [facility] History of Present illness Narrative* Negra, Fariba S - 07/06/2023 10:30 AM EST Physical Therapy [facility] Date: 07/06/2023 Patient Name: Carmen Bledsoe DOB: 1960 Patient is not able to a make this appointment, she rescheduled for tomorrow. Fariba Sepulveda Shock Date: 07/06/2023 documented in [facility] Hospital Discharge instructions Patient Education 05/09/2023 22:10:36 [...] back becomes more flexible: 1.Get into a wiqum-mqq-clzro position on a firm bed or the [...] provider. Document Revised: 12/15/2021 Document Reviewed: 09/02/2021 Streamfile Patient Education 2022 [employer]. Follow Up Care 05/06/2023 08:05:37 With:Ansley Carrero PA-C Address: [address] [place] [phone] When: only if needed Comments:Only if needed [facility] [place] 10-23-2023 Hospital Discharge instructions [...] Follow these instructions at home: Medicines Take utsh-xls-agztkln and prescription medicines only as told by your health care provider. Ask your health care provider if the medicine prescribed to you: ?Requires you to avoid driving or using heavy machinery. ?Can cause constipation. You may need to take these actions to prevent or treat constipation: ?Drink enough fluid to keep your urine pale yellow. ?Take ddom-baa-ipeaayb or prescription medicines. ?Eat foods that are [...] provider. Document Revised: 07/09/2019 Document Reviewed: 07/09/2019 Streamfile Patient Education 2022 [employer]. 04/25/2023 19:33:56 Back Exercises Back Exercises The [...] back becomes more flexible: 1.Get into a gxydr-dvf-ghwsv position on a firm bed or the [...] provider. Document Revised: 12/15/2021 Document Reviewed: 09/02/2021 Streamfile Patient Education 2022 [employer]. Follow Up Care 04/21/2023 13:02:20 With:Yocasta SMITH, 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, Myron Hamilton Address: [address] [place] [phone] When: only if needed [facility] [place] 09-14-2023 Hospital Discharge instructions [...] treat it right away. Always have a 00-dewdexyjx-fupfpo carbohydrate snack with you to treat low [...] you how to adjust your dosage. Take nval-pst-zflfgts and prescription medicines only as told by [...] your health care provider once every year. [place] your teeth and gums two times a [...] meet with a certified diabetes care and individualized education plan aide? Where can I find a support group for people with diabetes? Where to find more information For help and guidance and for more information about diabetes, please visit: [place] Diabetes Association (ADA): www.diabetes.org [place] Association of Diabetes Care and Education Specialists [...] provider. Document Revised: 11/18/2021 Document Reviewed: 11/18/2021 Streamfile Patient Education 2022 [employer]. 03/17/2023 14:42:58 DASH Eating Plan DASH Eating [...] Dairy Whole or 2% milk, cream, and prqy-kmb-pvab. Whole or full-fat cream cheese. Whole-fat or [...] more information National Heart, Lung, and Blood Guide [place]: www.nhlbi.nih.gov [place] Heart Association: www.heart.org Academy of Nutrition and [...] provider. Document Revised: 05/23/2020 Document Reviewed: 05/23/2020 Streamfile Patient Education 2022 [employer]. 03/17/2023 14:42:56 Insomnia Insomnia Insomnia is a [...] go back to bed. General instructions Take bdha-prp-mqkgnge and prescription medicines only as told by [...] the National Suicide Prevention Lifeline at or 182. This is open 24 hours a day. Text the Crisis Text Line at 314783. Summary Insomnia is a sleep disorder that [...] provider. Document Revised: 05/31/2022 Document Reviewed: 05/31/2022 Streamfile Patient Education 2022 [employer]. Follow Up Care 03/15/2023 07:59:17 With:Yocasta SMITH, 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, Myron Hamilton Address: [address] [place] [phone] When: only if needed Comments:keep may appt, fax sleep study to [facility] [place] 05-25-2023 Hospital Discharge instructions Patient Education 11/25/2022 [...] cheese. Low-sodium cottage cheese. Fats and oils [place], canola, soybean, flaxseed, avocado, or sunflower oil. Sweets and desserts Applesauce. Granola bars. Sugar-free pudding and gelatin. Frozen fruit bars. Seasoning and other foods Fresh and dried herbs. Lemon or algaaciq juice. Vinegar. Low-sodium ketchup. Salt- free marinades, saladdressings, sauces, and seasonings. The items listed above may not be a complete list of foods and beverages you can eat. Contact a dietitian for more information. Foods to avoid Fruits Fruits that are dried with sodium-containing preservatives. Vegetables Canned vegetables. Frozen vegetables with sauce or seasonings. Creamed vegetables. Monegasque fries. Onion rings. Pickled vegetables and sauerkraut. [...] Salted nuts and seeds. Dairy Whole milk, infq-xur-qoub, and cream. Buttermilk. Processed cheese, cheese spreads, [...] provider. Document Revised: 02/02/2021 Document Reviewed: 02/02/2021 Streamfile Patient Education 2022 [employer]. 11/25/2022 15:14:21 DASH Eating Plan DASH Eating [...] Dairy Whole or 2% milk, cream, and lqge-pga-cexk. Whole or full-fat cream cheese. Whole-fat or [...] more information National Heart, Lung, and Blood Guide [place]: www.nhlbi.nih.gov [place] Heart Association: www.heart.org Academy of Nutrition and [...] provider. Document Revised: 05/23/2020 Document Reviewed: 05/23/2020 Streamfile Patient Education 2022 [employer]. Follow Up Care 11/10/2022 07:47:50 With:Yocasta SMITH, 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, Myron Hamilton Address: [address] [place] [phone] When:Within 6 Month(s) Comments:chronic care [facility] [place] 04-12-2023 Hospital Discharge instructions Patient Education 10/13/2022 [...] when you have heart failure Medicines Take bthr-svt-eagoahq and prescription medicines only as told by [...] 10/03/2019 Document Revised: 10/02/2019 Document Reviewed: 10/03/2019 Streamfile Patient Education 2019 [employer]. 10/13/2022 08:14:26 Heart Failure Medicines Heart Failure [...] 11/04/2017 Document Revised: 07/05/2018 Document Reviewed: 11/04/2017 Streamfile Patient Education 2020 [employer]. 10/13/2022 08:14:22 Heart Failure Eating Plan Heart [...] lifestyle and working with a diet and nutrition consultant (dietitian)to choose the right foods may help to [...] cheese. Low-sodium cottage cheese. Fats and oils [place], canola, soybean, flaxseed, or sunflower oil. Avocado. Sweets and desserts Apple sauce. Granola bars. Sugar-free pudding and gelatin. Frozen fruit bars. Seasoning and other foods Fresh and dried herbs. Lemon or algaaciq juice. Vinegar. Low-sodium ketchup. Salt- free marinades, [...] vegetables with sauce or seasonings. Creamed vegetables. Monegasque fries. Onion rings. Pickled vegetables and sauerkraut. [...] Salted nuts and seeds. Dairy Whole milk, ebcm-iks-acpa, and cream. Buttermilk. Processed cheese, cheese spreads, [...] 11/04/2017 Document Revised: 08/16/2019 Document Reviewed: 11/04/2017 Streamfile Patient Education 2020 [employer]. 10/13/2022 08:14:21 Heart Failure and Exercise [...] 11/01/2017 Document Revised: 11/04/2017 Document Reviewed: 11/01/2017 Elsevier Patient Education 2020 Radha Andres. 10/13/2022 08:14:18 Form - Daily Weight Record [...] 09/01/2007 Document Revised: 06/19/2018 Document Reviewed: 06/19/2018 Elsevier Patient Education 2020 Elsevier Inc. Follow Up Care 09/29/2022 12:46:37 With:Carmen Haley DO Address: When:Within 1 Month(s) [facility]03-29-2023 Hospital Discharge instructions Patient Education 09/29/2022 12:38:18 [...] require a prescription and some youcan purchase blbd-yeo-aviiemw. Medicines may have nicotine in them to [...] for support and encouragement. Call telephone quitlines (-NOW), reach out to support groups, or work [...] 06/14/2002 Document Revised: 09/07/2019 Document Reviewed: 09/08/2019 Streamfile Patient Education 2020 [employer]. 09/29/2022 12:38:01 Heart Failure Eating Plan Heart [...] lifestyle and working with a diet and nutrition consultant (dietitian)to choose the right foods may help to [...] cheese. Low-sodium cottage cheese. Fats and oils [place], canola, soybean, flaxseed, or sunflower oil. Avocado. Sweets and desserts Apple sauce. Granola bars. Sugar-free pudding and gelatin. Frozen fruit bars. Seasoning and other foods Fresh and dried herbs. Lemon or algaaciq juice. Vinegar. Low-sodium ketchup. Salt- free marinades, [...] vegetables with sauce or seasonings. Creamed vegetables. Monegasque fries. Onion rings. Pickled vegetables and sauerkraut. [...] Salted nuts and seeds. Dairy Whole milk, kkoi-teb-hglx, and cream. Buttermilk. Processed cheese, cheese spreads, [...] 11/04/2017 Document Revised: 08/16/2019 Document Reviewed: 11/04/2017 Elsevier Patient Education 2020 Elsevier Inc. 09/29/2022 12:37:57 Form - Daily Weight [...] 09/01/2007 Document Revised: 06/19/2018 Document Reviewed: 06/19/2018 Elsevier Patient Education 2020 [employer] Inc. Follow Up Care 09/22/2022 10:08:32 With:Carmen Haley DO Address: When:Within 2 Week(s) [facility]03-24-2023 Hospital Discharge instructions Patient Education 09/24/2022 15:45:06 [...] 06/22/2004 Document Revised: 04/13/2019 Document Reviewed: 11/29/2016 Streamfile Patient Education 2020 [employer]. Follow Up Care 09/13/2022 14:16:08 With:Yocasta SMITH, 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[employer], Myron Hamilton Address: [address] [place] [phone] When: Unknown Comments:see nurse for Dr Haley's lab Tuesday. Next primary care visit in November [facility] [place] 03-22-2023 Hospital Discharge instructions Patient Education 09/22/2022 [...] 06/20/2006 Document Revised: 09/07/2019 Document Reviewed: 09/07/2019 Streamfile Patient Education 2020 [employer]. 09/22/2022 09:54:51 Heart Failure Medicines Heart Failure [...] 11/04/2017 Document Revised: 07/05/2018 Document Reviewed: 11/04/2017 Streamfile Patient Education 2020 [employer]. 09/22/2022 09:54:49 Heart Failure Eating Plan Heart [...] lifestyle and working with a diet and nutrition consultant (dietitian)to choose the right foods may help to [...] cheese. Low-sodium cottage cheese. Fats and oils [place], canola, soybean, flaxseed, or sunflower oil. Avocado. Sweets and desserts Apple sauce. Granola bars. Sugar-free pudding and gelatin. Frozen fruit bars. Seasoning and other foods Fresh and dried herbs. Lemon or algaaciq juice. Vinegar. Low-sodium ketchup. Salt- free marinades, [...] vegetables with sauce or seasonings. Creamed vegetables. Monegasque fries. Onion rings. Pickled vegetables and sauerkraut. [...] Salted nuts and seeds. Dairy Whole milk, fuuz-pkz-teho, and cream. Buttermilk. Processed cheese, cheese spreads, [...] and bouillon cubes. Horseradish, ketchup, and mustard. [facility] Hospital[facility] sauce. Teriyaki sauce, soy sauce (including reduced [...] 11/04/2017 Document Revised: 08/16/2019 Document Reviewed: 11/04/2017 Streamfile Patient Education 2019 [employer]. 09/22/2022 09:54:44 Heart Failure Action Plan Heart [...] symptoms. Follow these instructions at home: Take ysyz-byt-ttcgpzh and prescription medicines only as told by your health care provider. Weigh yourself daily. Your target weight is lb ( kg). ?Call your health care provider if you gain more than lb ( kg) in a day, or more than lb ( kg) in one week. Eat a heart-healthy diet. Work with a diet and nutrition consultant (dietitian) to create an eatingplan that is best for you. Keep all follow-up visits as told by your health care provider. This is important. Where to find more information [place] Heart Association: www.heart.org Summary Follow the action [...] 07/30/2017 Document Revised: 06/02/2018 Document Reviewed: 07/30/2017 Streamfile Patient Education 2020 [employer]. 09/22/2022 09:53:36 Pulmonary Edema Pulmonary Edema Pulmonary [...] Follow these instructions at home: Medicines Take rcjo-icv-hcgchme and prescription medicines only as told by [...] infections or injury to the lungs. Take bpbi-zvr-ppukzch and prescription medicines only as told by your health care provider. This information is not intended to replace advice given to you by your health care provider. Make sure you discuss any questions you have with your health care provider. Document Released: 09/10/2003 Document Revised: 06/02/2018 Document Reviewed: 08/31/2017 Streamfile Patient Education 2020 [employer]. 09/22/2022 09:53:16 Steps to Quit Smoking Steps [...] require a prescription and some youcan purchase zubb-ayg-isfhtny. Medicines may have nicotine in them to [...] for support and encouragement. Call telephone quitlines (-NOW), reach out to support groups, or work [...] 06/14/2002 Document Revised: 09/07/2019 Document Reviewed: 09/08/2019 Streamfile Patient Education 2020 [employer]. 09/22/2022 09:53:10 Health Risks of Smoking Health [...] an increased risk of the following: Sudden syndrome (SIDS). Respiratory infections. Lung cancer. Heart [...] these methods. Where to find more information [place] Lung Association: www.lung.org [place] Cancer Society: www.cancer.org Summary Smoking cigarettes is [...] 07/28/2005 Document Revised: 09/21/2018 Document Reviewed: 06/24/2017 Streamfile Patient Education 2020 [employer]. 09/22/2022 09:52:53 Cooking With Less Salt Cooking With Less Salt Cooking with less salt is one way to reduce the amount of sodium you get from food. Depending on your condition and overall health, your health care provider or diet and nutrition consultant (dietitian) may recommend that you reduce your [...] foods. Use sodium-free baking soda when baking. [place], braise, or roast foods to add flavor [...] foods you can pair it with. Herbs [place] leaves Soups, meat and vegetable dishes, and spaghetti sauce. Basil Paraguayan dishes, soups, pasta, and fish dishes. Cilantro Meat, poultry, and vegetable dishes. [place] powder Marinades and Rwandan dishes. Chives Salad dressings and potato dishes. Cumin Rwandan dishes, couscous, and meat dishes. Dill Fish dishes, sauces, and salads. Fennel Meat and vegetable dishes, breads, and cookies. Garlic (do not use garlic salt) Paraguayan dishes, meat dishes, salad dressings, and sauces. Marjoram Soups, potato dishes, and meat dishes. Oregano Pizza and spaghetti sauce. Parsley Salads, soups, pasta, and meat dishes. Zakia Par[place]ayan dishes, salad dressings, soups, and red meats. [...] and low-sodium cheeses. Good cheese choices include [place], [place] Kameron, and mozzarella. Always check the label [...] 06/20/2006 Document Revised: 06/02/2018 Document Reviewed: 06/28/2017 Streamfile Patient Education 2020 [employer]. 09/22/2022 09:52:44 BMI for Adults BMI for [...] height. This can be done either in [place]vian ([place] or metric measurements. Note that charts are available to help you find your BMI quickly and easily without having to do these calculations yourself. To calculate your BMI in [place]vian ([place] measurements, your health care provider will: [...] medical problems. BMI can be measured using Latvian measurements or metric measurements. To interpret your [...] 03/01/2005 Document Revised: 06/02/2018 Document Reviewed: 05/03/2018 Streamfile Patient Education 2020 [employer]. Follow Up Care 09/17/2022 09:26:53 With:Carmen Haley DO Address: When:09/29/2022 [facility]03-13-2023 Progress note Author José Sanchez [facility] September 13, 2022 9:31pm Note Date/Time September 13, 2022 9:3 1pm [facility] [address] [place] [address] Hospitalist Progress Note Signed Patient: Carmen Bledsoe MR#: [id number] : 1960 Acct:[id number] Age/Sex: 61 / F Adm Date: 3 Loc: 4P Room: 6C0889-8 Type: ADM IN Attending Dr: José Sanchez [...] 09/11/22 09:00 09/13/22 09:01 Aspirin 81 Mg Tablet.Dr PO 09/11/23 08:59 [...] Vial IV-PUSH 09/10/23 15:19 60 mg Q12HR BIRSEIDA Administration Morphine Sulfate 2 mg 09/10/22 13:25 [...] <Electronically signed by José Sanchez MD> 09/13/222130 [facility] Work Phone: 1(200) 717-903203-12-2023 Progress note Author Marilyn Sun [facility] September 12, 2022 12:22pm Note Date/Time September 12, 2022 12: 13pm [facility] [address] [place] [address] Hospitalist Progress Note Signed Patient: Carmen Bledsoe MR#: [id number] : 1960 Acct:[id number] Age/Sex: 61 / F Adm Date: 3 Loc: Room: [address] [place] [address] Type: ADM IN Attending Dr: Marilyn Sun [...] 09/12/22 08:58 Glipizide 2.5 Mg Tab.Er.24 PO 09/11/23 09:29 [...] <Electronically signed by Marilyn Sun MD> 09/12/22 1222 [facility] Work Phone: 1(297) 795-194603-11-2023 History and physical note Author Marilyn Sun [facility] September 11, 2022 11:38am Note Date/Time September 10, 2022 1:3 6pm [facility] [address] [place] [address] Hospitalist H&P Signed with Anastacio Patient: Carmen Bledsoe MR#: [id number] : 1960 Acct:[id number] Age/Sex: 61 / F Adm Date: 3 Loc: 4 Room: [address] [place] [address] Type: ADM IN Attending Dr: Marilyn Sun [...] 09/10/22 11:26 MCV 96.1 fl (80-100) 09/10/22 11:26 MCH 31.8 pg (24.7-34.3) 09/10/22 11:26 MCHC 33.1 g/dL (32.0-35.0) 09/10/22 11:26 RDW 17.5 % (11.9-15.3) H 09/10/22 11:26 Plt Count 180 x10E3/uL (150-450) 09/10/22 11:26 MPV 7.2 fl (6.3-10.7) 09/10/22 11:26 Neut % (Auto) 70.7 % (.) 09/10/22 11:26 Lymph % (Auto) 21.5 % (.) 09/10/22 11:26 [place] % (Auto) 5.1 % (.) 09/10/22 11:26 Eos % (Auto) 1.6 % (.) 09/10/22 11:26 Baso % (Auto) 1.1 % (.) 09/10/22 11: Nucleat RBC Rel Count 0.3 /100 WBC (0-0.5) 09/10/22 11:26 Neut # (Auto) 3.7 x10E3/uL (1.8-7.7) 09/10/22 11: Lymph # (Auto) 1.1 x10E3/uL (1.00-4.8) 09/10/22 11: [place] # (Auto) 0.3 x10E3/uL (0.0-0.8) 09/10/22 11: Eos # (Auto) 0.1 x10E3/uL (0.0-0.45) 09/10/22 11:26 Baso # (Auto) 0.1 x10E3/uL (0.0-0.2) 09/10/22 11: Monocyte Dist Width 18.14 % (0.00-20.00) 09/10/22 11: PT 11.8 Seconds (9.0-12.9) 09/10/22 11: INR 1.0 09/10/22 11: APTT 31.2 Seconds (25.1-36.5) 09/10/22 11:26 PHA Creatinine Clear 109.50 09/10/22 11:26 Sodium 137 mmol/L (136-145) 09/10/22 11:26 Potassium 4.7 mmol/L (3.5-5.1) 09/10/22 11: Chloride 99 mmol/L (98-107) 09/10/22 11:26 Carbon Dioxide 29.0 mmol/L (21.0-31.0) 09/10/22 11: Anion Gap 13.7 mEq/L (6.0-15.0) 09/10/22 11: BUN 24 mg/dL (7-25) 09/10/22 11: Creatinine 0.83 mg/dL (0.60-1.20) 09/10/22 11:26 Est [...] bedside. All questions answered. [facility] with the[facility] -Based on my assessment and evaluation [...] <Electronically signed by Marilyn Sun MD> 09/10/22 154 [facility] Work Phone: 1(664) 856-824803-11-2023 Progress note Author Marilyn Sun [facility] September 11, 2022 11:36am Note Date/Time September 11, 2022 11: 07am [facility] [address] [place] [address] Hospitalist Progress Note Signed Patient: Carmen Bledsoe MR#: [id number] : 1960 Acct:[id number] Age/Sex: 61 / F Adm Date: 3 Loc: 4N Room: 5S3441-5 Type: ADM IN Attending Dr: Marilyn Sun [...] 09/11/22 09:00 09/11/22 08:38 Aspirin 81 Mg Tablet.Dr PO 09/11/23 08:59 [...] agreement with the plan. Will transfer to [facility] for now. Marilyn Escobedo MD Internal Medicine Hospitalist Attending Physician Documented By: Marilyn Sun MD 09/11/22 11 04 Signed By: <Electronically signed by Marilyn Sun MD> 09/11/22 4[address] [facility] Work Phone: 1(350) 717-323203-06-2023 Hospital Discharge instructions Patient Education 09/06/2022 12:23:58 [...] hospital. Follow these instructions at home: Take akzz-dik-essnuzm and prescription medicines only as told by [...] cantaloupe, kiwi, oranges, tomatoes, asparagus, and potatoes. ?Citrus juice. ?Tomato juice. ?Red meats. ?Yogurt. Keep [...] 06/20/2006 Document Revised: 01/31/2019 Document Reviewed: 01/31/2019 Streamfile Patient Education 2020 [employer]. Follow Up Care 08/23/2022 15:13:00 With:Yocasta SMITH, DARLEEN-Myron VILLATORO Address: [address] [place] [id number] When: Unknown Comments:telephone result to maribel. See referrals [facility] [place] 02-09-2023 Hospital Discharge instructions [...] plan? Your health care provider or certified drug counselor can help you make a plan [...] stress. Your health care provider or certified drug counselor can help you make a plan [...] 09/09/2004 Document Revised: 01/12/2018 Document Reviewed: 11/29/2016 Streamfile Patient Education 2020 [employer]. Follow Up Care 08/12/2022 10:06:58 With:Yocasta SMITH, 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Myron VILLATORO Address: [address] [place], [place] [address] [address] When: Unknown Comments:Echo order for [place]. Telephone result to patient [facility] [place] 06-29-2022 Hospital Discharge instructions [...] of hard liquor (1 oz). Medicines Take sfui-njb-kxecljm and prescription medicines only as told by [...] Centers for Disease Control and Prevention: www.cdc.gov/heartdisease [place] [employer]: www.heart.org ?Take a free online [...] 02/01/2005 Document Revised: 07/05/2018 Document Reviewed: 07/05/2018 Streamfile Patient Education 2020 [employer]. Follow Up Care 12/24/2021 08:31:22 With:Parish PATE Address: [address] [place], [place] [id number]- When:Within 6 Month(s) [facility] [place] 01-10-2022 History of Present illness Narrative* Case [...] BMR: 2209 calories Est. total calorie needs: ~8294-5501 Client overall goal for weight is for [...] pizza, or consume foods from community, including [employer] or fast foods. Has not been [...] the referral. Education session duration: 60 minutes; ([id number]). Reminder to ordering Physician/Provider: Diabetes and CKD (non-dialysis) patients may have 2 hours of MNT education in subsequent years. Hours can be spread over any number of visits. documented [facility] Work Phone: 1([phone]) 579-777201-06-2022 History of Present illness Narrative* Sarah Salmon [...] Carmen Bledsoe Referring Provider: DARLEEN Bernardo NP [place] to learning: Considerations: []Language []Emotional []Health Literacy []Cognitive []Memory changes []Financial []Cultural []Buddhism []Vision []Hearing []Speech []Lack of desire []Literacy [...] not started working on diet because of [place]. Given a one week food diary and [...] the relationship of blood glucose levels to alf complications of diabetes.Identify preventative measures and standard [...] tips sheet and How to pick the rightshoe , Medications Used To Treat Diabetes , [...] ) ADA website: Http://www.diabetes.org ( ) Http: //www.[place]/-russ/faq.htm ( ) Diabetes Forecast Roc[place]le you may get this information on the ADA web site. ( ) Diabetes Interview - [place] ( ) Diabetes Self Management (bi-monthly magazine) ( x ) Support group: [place] tuesday of the month at 9 am ( ) Health Journeys Image Paths (relaxation tapes for people with Diabetes) ( ) Your suggestions: Sarah Salmon RN [facility] Diabetes clinic educator 07/09/2021 10:17 AM documented in this [facility] [employer] Work Phone: 1(640) 287-651912-30-2021 History of Present illness Narrative* Sarah Salmon [...] Carmen Bledsoe Referring Provider: DARLEEN Bernardo NP [place] to learning: Considerations: []Language []Emotional []Health Literacy []Cognitive []Memory changes []Financial []Cultural []Buddhism []Vision []Hearing []Speech []Lack of desire []Literacy [...] the relationship of blood glucose levels to adjunct faculty for medical terminology complications of diabetes.Identify preventative measures and standard [...] ) ADA website: Http://www.diabetes.org ( ) Http: //www.[place].com.com/-russ/faq.htm ( ) Diabetes Forecast [place]le you may get this information on the ADA web site. ( ) Diabetes Interview - [place] ( ) Diabetes Self Management (bi-monthly magazine) ( x ) Support group: [place] tuesday of the month at 9 am ( ) Health Journeys Image Paths (relaxation tapes for people with Diabetes) ( ) Your suggestions: Sarah Salmon RN [facility] Diabetes clinic educator 07/02/2021 10:41 AM documented in this [facility] Work Phone: evaluation + Plan note Future Appointments Appointment Date:07/09/2022 11:00:00 AM Scheduled Provider:Parish PATE Location:[facility] Appointment Type: Open [facility] Evaluation + Plan [facility] Evaluation + Plan note Future Appointments Appointment Date:09/24/2022 02:40:00 PM Scheduled Provider:Lupis SCHWARTZ MD, FAAFP Location:[facility] Appointment Type: ER/Hospital Follow Up Appointment Date:09/29/2022 11:30:00 AM Scheduled Provider:Carmen Haley DO [facility] Appointment Type:Cardiology Follow Up (FT) Future Scheduled Tests Laboratory* B-Type Natriuretic Peptide 09/22/22 * Basic Metabolic Panel 09/22/22 * Basic Metabolic Panel 09/22/22 Radiology* NM Myocardial Spect Rest/Stress 2 Day 09[facility]22[facility]22 [facility]ments Appointment Date:09/27/2022 10:40:00 AM Scheduled Provider: Location:[facility] Appointment Type: Nurse Visit Appointment Date:09/29/2022 11:30:00 AM Scheduled Provider:Carmen Haley DO [facility] Appointment Type:Cardiology Follow Up (FT) Appointment Date:11/26/2022 02:40:00 PM Scheduled Provider:Yocasta SMITH, 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PINSETTER MECHANIC AUTOMATICMyron Location:[facility] Appointment Type: Open Future Scheduled Tests Laboratory* B-Type Natriuretic Peptide 09/22/22 * Basic Metabolic Panel 09/22/22 * Basic Metabolic Panel 09/22/22 Radiology* NM Myocardial Spect Rest/Stress 2 Day 09/22/22 [facility] Evaluation + Plan note Future Appointments Appointment Date:09/29/2022 11:30:00 AM Scheduled Provider:Carmen Haley DO Location:[facility] Appointment Type:Cardiology Follow Up (FT) Appointment Date:11/26/2022 02:40:00 PM Scheduled Provider:SRINIVAS Pereyra Tammy L. Location:[facility] Appointment Type: Open Future Scheduled Tests Laboratory* Basic Metabolic Panel 09/22/22 Radiology* NM Myocardial Spect Rest/Stress 2 Day 09/22/22 [facility] Evaluation + Plan note Future Appointments Appointment Date:09/29/2022 11:30:00 AM Scheduled Provider:Carmen Haley DO [facility] Appointment Type:Cardiology Follow Up (FT) Appointment Date:11/26/2022 02:40:00 PM Scheduled Provider:SRINIVAS Pereyra Tammy L. Location:[facility] Appointment Type: Open Diagnostic Tests Pending * Basic Metabolic Panel 09/27/22 Future Scheduled Tests Laboratory* Basic Metabolic Panel 09/22/22 Radiology* NM Myocardial Spect Rest/Stress 2 Day 09/22/22 [facility] Appointment Date:10/13/2022 09:00:00 AM Scheduled Provider:Carmen Haley DO [facility] Appointment Type:Cardiology Follow Up (FT) Appointment Date:10/18/2022 01:40:00 PM Scheduled Provider:Lupis SCHWARTZ MD, FAAFP Location:[facility] Appointment Type:FM Open Appointment Date:11/26/2022 02:40:00 PM Scheduled Provider:SRINIVAS Pereyra Tammy L. Location:[facility] Appointment Type: Open Future Scheduled Tests Laboratory* Basic Metabolic Panel 09/22/22 Radiology* NM Myocardial Spect Rest/Stress 2 Day 09/22/22 [facility]ments Appointment Date:10/13/2022 09:00:00 AM Scheduled Provider:Carmen Haley DO [facility] [place] Appointment Type:Cardiology Follow Up (FT) Appointment Date:10/18/2022 01:40:00 PM Scheduled Provider:Lupis SCHWARTZ MD, FAAFP Location:[facility] Appointment Type:FM Open Appointment Date:10/19/2022 02:00:00 PM Scheduled Provider: Location[facility] Appointment Type:CV EKG (FT) Appointment Date:10/19/2022 02:30:00 PM Scheduled Provider: Location[facility] Appointment Type:NM Myocard Spect Multi Rest/Stress-Res Appointment Date:10/19/2022 03:30:00 PM Scheduled Provider: [facility] Appointment Type:NM Myocard Spect Multi Rest/Stress - R Appointment Date:10/20/2022 02:30:00 PM Scheduled Provider: [facility] Appointment Type:NM Myocard Spect MultiRest/Stress-Stre Appointment Date:10/20/2022 03:30:00 PM Scheduled Provider: [facility] Appointment Type:NM Myocard Spect Multi Rest/Stress - S Appointment Date:11/26/2022 02:40:00 PM Scheduled Provider:Yocasta SMITH, DARLEEN-Myron VILLATORO Location:[facility] Appointment Type: Open Future Scheduled Tests Radiology* NM Myocardial Spect Rest/Stress 2 Day 10/19/22 [facility] [place] Evaluation + Plan note Future Appointments Appointment Date:10/18/2022 01:40:00 PM Scheduled Provider:Lupis SCHWARTZ MD, FAAFP Location:[facility] Appointment Type:FM Open Appointment Date:10/19/2022 02:00:00 PM Scheduled Provider: [facility] Type:CV EKG (FT) Appointment Date:10/19/2022 02:30:00 PM Scheduled Provider: Location[facility] Appointment Type:NM Myocard Spect Multi Rest/Stress-Res Appointment Date:10/19/2022 03:30:00 PM Scheduled Provider: Location[facility] Appointment Type:NM Myocard Spect Multi Rest/Stress - R Appointment Date:10/20/2022 02:30:00 PM Scheduled Provider: [facility] Appointment Type:NM Myocard Spect MultiRest/Stress-Stre Appointment Date:10/20/2022 03:30:00 PM Scheduled Provider: [facility] Appointment Type:NM Myocard Spect Multi Rest/Stress - S Appointment Date:11/26/2022 02:40:00 PM Scheduled Provider:SRINIVAS Pereyra Tammy L. Location:[facility] Appointment Type: Open Future Scheduled Tests Laboratory* Vitamin D 25 Hydroxy 10/13/22 * Creatine Kinase 10/13/22 Radiology* US LE Venous Duplex Insufficiency Bilat 10/13/22 * US PVR Lower EXT Complete Bilat 10/13/22 * NM Myocardial Spect Rest/Stress 2 Day 10/19/22 [facility] App[facility]ments Appointment Date:05/30/2023 02:00:00 PM Scheduled Provider:SRINIVAS Pereyra Tammy L. Location:[facility] Appointment Type: Open Future Scheduled Tests Laboratory* Vitamin D 25 Hydroxy 10/13/22 * Creatine Kinase 10/13/22 Radiology* US LE Venous Duplex Insufficiency Bilat 10/13/22 [facility] [place] Evaluation + Plan note Future Appointments Appointment Date:04/26/2023 10:00:00 AM Scheduled Provider:Alirio Ramirez MD [facility] [place] Appointment Type:Cardiology Follow Up (FT) Appointment Date:05/30/2023 02:00:00 PM Scheduled Provider:SRINIVAS Pereyra Tammy L. Location:[facility] Appointment Type: Open Future Scheduled Tests Laboratory* Vitamin D 25 Hydroxy 10/13/22 * Creatine Kinase 10/13/22 Radiology* US LE Venous Duplex Insufficiency Bilat 10/13/22 * US PVR Lower EXT Complete Bilat 01/11/23 [facility] App[facility]ments Appointment Date:05/09/2023 01:00:00 PM Scheduled Provider: [facility] Appoint[facility] Type:US Duplex Procedures (FT) Appointment Date:05/30/2023 02:00:00 PM Scheduled Provider:SRINIVAS Pereyra Tammy L. Location:[facility] Appointment Type: Open Future Scheduled Tests Laboratory* Vitamin D 25 Hydroxy 10/13/22 * Creatine Kinase 10/13/22 Radiology* US PVR w/ Exercise 05/09/23 * US LE Venous Duplex Insufficiency Bilat 10/13/22 [facility] Evaluation + Plan note Future Appointments Appointment Date:07/25/2023 02:00:00 PM Scheduled Provider:SRINIVAS Pereyra Tammy L. Location:[facility] Appointment Type: Open Future Scheduled Tests Laboratory* Vitamin D 25 Hydroxy 10/13/22 * Creatine Kinase 10/13/22 Radiology* US LE Venous Duplex Insufficiency Bilat 10/13/22 [facility] App[facility]ments Appointment Date:10/25/2023 03:00:00 PM Scheduled Provider:Alirio Ramirez MD [facility] [place] Appointment Type:Cardiology Follow Up (FT) Appointment Date:10/26/2023 01:20:00 PM Scheduled Provider:SRINIVAS Pereyra Tammy L. Location:[facility] Appointment Type: Open Appointment Date:11/02/2023 10:30:00 AM Scheduled Provider:Walker Phillip MD Location:[facility] Appointment Type:[facility] New Patient Future Scheduled Tests Laboratory* Vitamin D 25 Hydroxy 10/13/22 * Creatine Kinase 10/13/22 Radiology* US LE Venous Duplex Insufficiency Bilat 10/13/22 [facility] Evaluation + Plan note Future Appointments Appointment Date:10/26/2023 01:20:00 PM Scheduled Provider:SRINIVAS Pereyra Tammy L. Location:[facility] Appointment Type: Open Appointment Date:11/02/2023 10:30:00 AM Scheduled Provider:Walker Phillip MD Location:[facility] Appointment Type:BAD New Patient Appointment Date:11/10/2023 03:00:00 PM Scheduled Provider: Location:[facility] Appointment Type: Nurse Visit Appointment Date:12/06/2023 03:15:00 PM Scheduled Provider:Alirio Ramirez MD [facility] Appointment Type:Cardiology Follow Up (FT) Future Scheduled Tests Laboratory* B-Type Natriuretic Peptide 10/25/23 * Basic Metabolic Panel 10/25/23 Radiology* Echo Transthoracic Complete 10/25/23 [facility] App[facility]ments Appointment Date:11/02/2023 10:30:00 AM Scheduled Provider:Walker Phillip MD Location:[facility] Appointment Type:BAD New Patient Appointment Date:11/08/2023 03:00:00 PM Scheduled Provider: [facility] [place] Appointment Type:CV Echo (FT) Appointment Date:11/10/2023 03:00:00 PM Scheduled Provider: [facility] App[facility] Type:FM Nurse Visit Appointment Date:11/25/2023 02:40:00 PM Scheduled Provider:SRINIVAS Pereyra Tammy L. Location:[facility] Appointment Type: Open Appointment Date:12/06/2023 03:15:00 PM Scheduled Provider:Alirio Ramirez MD Location:[facility] Appointment Type:Cardiology Follow Up (FT) Future Scheduled Tests Laboratory* B-Type Natriuretic Peptide 10/25/23 * Basic Metabolic Panel 10/25/23 Radiology* Echo Transthoracic Complete 11/08/23 [facility] [place] Evaluation + Plan note Future Appointments Appointment Date:11/08/2023 03:00:00 PM Scheduled Provider: [facility] [place] Appointment Type:CV Echo (FT) Appointment Date:11/10/2023 03:00:00 PM Scheduled Provider: [facility] Appointment Type:FM Nurse Visit Appointment Date:11/25/2023 02:40:00 PM Scheduled Provider:SRINIVAS Pereyra Tammy L. [facility] Appointment Type:FM Open Appointment Date:12/06/2023 03:15:00 PM Scheduled Provider:Alirio Ramirez MD [facility] Appointment Type:Cardiology Follow Up (FT) Appointment Date:12/23/2023 10:30:00 AM Scheduled Provider: Location:[facility] Appointment Type:Surgery FT Appointment Date:12/23/2023 12:00:00 PM Scheduled Provider: Location:[facility] Appointment Type:Surgery FT Appointment Date:01/13/2024 10:45:00 AM Scheduled Provider:Walker Phillip MD Location:[facility] Appointment Type:[facility] Follow Up Future Scheduled Tests Laboratory* Hep B Core Ab, Tot 11/02/23 * Rkasc-3-Ilnpkqixgkq 11/02/23 * B-Type Natriuretic Peptide 10/25/23 * [...] PT 11/02/23 Radiology* Echo Transthoracic Complete 11/08/23 [facility] Evaluation + Plan note Future Appointments Appointment Date:11/10/2023 03:00:00 PM Scheduled Provider: Location:[facility] [place] Appointment Type:FM Nurse Visit Appointment Date:11/25/2023 02:40:00 PM Scheduled Provider:Yocasta MSN, 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PINSETTER MECHANIC AUTOMATIC, Myron Hamilton Location:[facility] [place] Appointment Type:FM Open Appointment Date:12/06/2023 03:15:00 PM Scheduled Provider:Adam SAMPSON, Alirio Hooper [facility] [place] Appointment Type:Cardiology Follow Up (FT) Appointment Date:12/23/2023 10:30:00 AM Scheduled Provider: [facility] Appointment Type:Surgery FT Appointment Date:12/23/2023 12:00:00 PM Scheduled Provider: Location:[facility] Appointment Type:Surgery FT Appointment Date:01/13/2024 10:45:00 AM Scheduled Provider:Walker Phillip MD Location:[facility] Appointment Type:[facility] Follow Up Future Scheduled Tests Laboratory* Hep B Core Ab, Tot 11/02/23 * Feids-1-Bjzqdknszdi 11/02/23 * B-Type Natriuretic Peptide 10/25/23 * [...] * Iron Level 11/02/23 * PT 11/02/23 [facility]ments Appointment Date:12/06/2023 03:15:00 PM Scheduled Provider:Adam SAMPSON, Alirio Hooper [facility] [place] Appointment Type:Cardiology Follow Up (FT) Appointment Date:12/23/2023 10:30:00 AM Scheduled Provider: Location:[facility] Appointment Type:Surgery FT Appointment Date:12/23/2023 12:00:00 PM Scheduled Provider: Location:[facility] Appointment Type:Surgery FT Appointment Date:01/13/2024 10:45:00 AM Scheduled Provider:Walker Phillip MD Location:[facility] Appointment Type:[facility] Follow Up Appointment Date:02/22/2024 01:20:00 PM Scheduled Provider:Yocasta MSN, 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PINSETTER MECHANIC AUTOMATICMyron Location:[facility] Appointment Type: Open Future Scheduled Tests Laboratory* Hep B Core Ab, Tot 11/02/23 * Elfbe-2-Ntdcofxnzmv 11/02/23 * B-Type Natriuretic Peptide 10/25/23 * [...] * Iron Level 11/02/23 * PT 11/02/23 [facility] [place] Evaluation + Plan note Future Appointments Appointment Date:12/23/2023 10:30:00 AM Scheduled Provider: Location:[facility] Appointment Type:Surgery FT Appointment Date:12/23/2023 12:00:00 PM Scheduled Provider: Location:[facility] Appointment Type:Surgery FT Appointment Date:01/13/2024 10:45:00 AM Scheduled Provider:Marjan SAMPSON, Walker Pritchett Location:[facility] Appointment Type:BADH Follow Up Appointment Date:02/22/2024 01:20:00 PM Scheduled Provider:Yocasta MSN, 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PINSETTER MECHANIC AUTOMATIC, Myron Hamilton Location:[facility] [place] Appointment Type:FM Open Appointment Date:06/05/2024 01:00:00 PM Scheduled Provider:Adam SAMPSON, Alirio Hooper [facility] [place] Appointment Type:Cardiology Follow Up (FT) Future Scheduled Tests Laboratory* Hep B Core Ab, Tot 11/02/23 * Oofwj-1-Lhodwbelzeu 11/02/23 * B-Type Natriuretic Peptide 10/25/23 * [...] * Iron Level 11/02/23 * PT [facility]/02/23 [facility] Appointment Date:02/22/2024 01:20:00 PM Scheduled Provider:Yocasta SMITH, Myron ESPINO [facility] Appointment Type: Open Appointment Date:06/05/2024 01:00:00 PM Scheduled Provider:Alirio Ramirez MD [facility] Appointment Type:Cardiology Follow Up (FT) Future Scheduled Tests Laboratory* Hep B Core Ab, Tot 11/02/23 * Blcwh-0-Byzxjfofcly 11/02/23 * B-Type Natriuretic Peptide 10/25/23 * [...] * Iron Level 11/02/23 * PT 11/02/23 [facility] Evaluation + Plan note Future Appointments Appointment Date:06/05/2024 01:00:00 PM Scheduled Provider:Alirio Ramirez MD [facility] Appointment Type:Cardiology Follow Up (FT) Appointment Date:08/29/2024 01:00:00 PM Scheduled Provider:Yocasta SMITH, Myron ESPINO Location:[facility] Appointment Type: Open Appointment Date:08/31/2024 11:00:00 AM Scheduled Provider: Location:[facility] Appointment Type:Surgery FT Future Scheduled Tests Laboratory* Hep B Core Ab, Tot 11/02/23 * Qnqep-2-Mnxzttgdriz 11/02/23 * B-Type Natriuretic Peptide 10/25/23 * [...] * Iron Level 11/02/23 * PT 11/02/23 [facility] [place] Evaluation + Plan note Future Appointments Appointment Date:08/29/2024 01:00:00 PM Scheduled Provider:Yocasta MSN, 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IRVING, Myron Hamilton [facility] Appointment Type: Open Appointment Date:08/31/2024 11:00:00 AM Scheduled Provider: Location:[facility] Appointment Type:Surgery FT Appointment Date:12/18/2024 11:00:00 AM Scheduled Provider:Rick Hernandez PA-C [facility] [place] Appointment Type:Cardiology Follow Up (FT) Future Scheduled Tests Laboratory* Hep B Core Ab, Tot 11/02/23 * Hzeka-1-Nnxzyrjyyhm 11/02/23 * B-Type Natriuretic Peptide 10/25/23 * [...] * Iron Level 11/02/23 * PT 11/02/23 [facility] Evaluation + Plan note Future Appointments Appointment Date:07/13/2024 11:00:00 AM Scheduled Provider: Location:[facility] [place] Appointment Type:FM Nurse Visit Appointment Date:07/18/2024 12:00:00 PM Scheduled Provider:SRINIVAS Pereyra Tammy L. [facility] Appointment Type: Open Appointment Date:08/29/2024 01:00:00 PM Scheduled Provider:SRINIVAS Pereyra Tammy L. Location:[facility] Appointment Type: Open Appointment Date:08/31/2024 11:00:00 AM Scheduled Provider: Location:[facility] Appointment Type:Surgery FT Appointment Date:12/18/2024 11:00:00 AM Scheduled Provider:Rick Hernandez PA-C Location[facility] [place] Appointment Type:Cardiology Follow Up (FT) Future Scheduled Tests Laboratory* Hep B Core Ab, Tot 11/02/23 * HgbA1c 07/11/24 * Bpqzw-6-Upmlybsuqvj 11/02/23 * B-Type Natriuretic Peptide 07/11/24 * B-Type Natriuretic Peptide 10/25/23 * Antimitochondrial Antibody, Quantitative 11/02/23 * Smooth Muscle Antibody Screen 11/02/23 * KIM w/Reflex if POS 11/02/23 * IgG, Quant. 11/02/23 * TIBC Calculated 11/02/23 * Hepatitis A Virus (HAV) Antibody, Total 11/02/23 * HCV Antibody RFX to Quant PCR 11/02/23 * Basic Metabolic Panel 10/25/23 * CBC w/ Auto Diff 07/11/24 * Comprehensive Metabolic Panel 07/11/24 * Comprehensive Metabolic Panel 11/02/23 * Ferritin 11/02/23 * Hepatitis B Surface Antibody 11/02/23 * Hepatitis B Surface Antigen 11/02/23 * Iron Level 11/02/23 * Lipid Panel 07/11/24 * PT 11/02/23 * Vitamin B12 Level 07/11/24 [facility] Evaluation + Plan note Future Appointments Appointment Date:07/18/2024 12:00:00 PM Scheduled Provider:SRINIVAS Pereyra Tammy L. [facility] Appointment Type: Open Appointment Date:08/29/2024 01:00:00 PM Scheduled Provider:SRINIVAS Pereyra Tammy L. Location[facility] Appointment Type: Open Appointment Date:08/31/2024 11:00:00 AM Scheduled Provider: Location:[facility] Appointment Type:Surgery FT Appointment Date:12/18/2024 11:00:00 AM Scheduled Provider:Rick Hernandez PA-C [facility] [place] [facility] Type:Cardiology Follow Up (FT) Future Scheduled Tests Laboratory* Hep B Core Ab, Tot 11/02/23 * Dzgnf-8-Extbejfsadw 11/02/23 * B-Type Natriuretic Peptide 10/25/23 * [...] * Iron Level 11/02/23 * PT 11/02/23 [facility] Evaluation + Plan note Future Appointments Appointment Date:07/18/2024 12:00:00 PM Scheduled Provider:Yocasta SMITH, Myron ESPINO Location[facility] Appointment Type: Open Appointment Date:08/29/2024 01:00:00 PM Scheduled Provider:Yocasta SMITH, Myron ESPINO [facility] Appointment Type: Open Appointment Date:08/31/2024 11:00:00 AM Scheduled Provider: Location:[facility] Appointment Type:Surgery FT Appointment Date:12/18/2024 11:00:00 AM Scheduled Provider:Rick Hernandez PA-C [facility] Appoint[facility] Type:Cardiology Follow Up (FT) Diagnostic Tests Pending * HgbA1c 07/13/24 Future Scheduled Tests Laboratory* Hep B Core Ab, Tot 11/02/23 * Pebqd-9-Pzxicppqldo 11/02/23 * B-Type Natriuretic Peptide 10/25/23 * [...] * Iron Level 11/02/23 * PT 11/02/23 [facility] Evaluation + Plan note Future Appointments Appointment Date:08/31/2024 11:00:00 AM Scheduled Provider: Location:[facility] Appointment Type:Surgery FT Appointment Date:09/12/2024 01:00:00 PM Scheduled Provider:Yocasta MSN, 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PINSETTER [employer], Myron Hamilton Location:[facility] Appointment Type: Open Appointment Date:12/18/2024 11:00:00 AM Scheduled Provider:Rick Hernandez PA-C [facility] [place] App[facility] Type:Cardiology Follow Up (FT) Future Scheduled Tests Laboratory* Hep B Core Ab, Tot 11/02/23 * Ctcex-4-Hwldwfcradt 11/02/23 * B-Type Natriuretic Peptide 10/25/23 * [...] * Iron Level 11/02/23 * PT 11/02/23 [facility] Evaluation + Plan note Future Appointments Appointment Date:09/12/2024 01:00:00 PM Scheduled Provider:Yocasta SMITH, Myron ESPINO [facility] Appointment Type: Open Appointment Date:12/18/2024 11:00:00 AM Scheduled Provider:Rick Hernandez PA-C [facility] Appointment Type:Cardiology Follow Up (FT) Future Scheduled Tests Laboratory* Hep B Core Ab, Tot 11/02/23 * Rkjaa-3-Tolkpdtjzsn 11/02/23 * B-Type Natriuretic Peptide 10/25/23 * [...] * Iron Level 11/02/23 * PT 11/02/23 [facility] Evaluation + Plan note Future Appointments Appointment Date:12/18/2024 11:00:00 AM Scheduled Provider:Rick Hernandez PA-C [facility] Appointment Type:Cardiology Follow Up (FT) Appointment Date:12/19/2024 12:40:00 PM Scheduled Provider:Yocasta SMITH, Myron ESPINO Location:[facility] Appointment Type: Open Future Scheduled Tests Laboratory* Hep B Core Ab, Tot 11/02/23 * Ysfpf-2-Iyrvfsiiizv 11/02/23 * B-Type Natriuretic Peptide 10/25/23 * [...] * Iron Level 11/02/23 * PT 11/02/23 [facility] evaluation + Plan note Future Appointments Appointment Date:12/19/2024 12:40:00 PM Scheduled Provider:SRINIVAS Pereyra Tammy L. Location:[facility] Appointment Type: Open Appointment Date:01/01/2025 02:00:00 PM Scheduled Provider:Rick Hernandez PA-C [facility] Appointment Type:Cardiology Follow Up (FT) [facility] evaluecfby + Plan note Future Appointments Appointment Date:01/01/2025 02:00:00 PM Scheduled Provider:Rick Hernandez PA-C [facility] Appointment Type:Cardiology Follow Up (FT) Appointment Date:01/02/2025 01:40:00 PM Scheduled Provider:SRINIVAS Pereyra Tammy L. Location:[facility] Appointment Type: Open Future Scheduled Tests Laboratory* Microalbumin Level Urine 12/19/24 * Urine Microalbumin/Creatinine Ratio 12/19/24 [facility] evaluation + Plan note Future Appointments Appointment Date:01/02/2025 01:40:00 PM Scheduled Provider:SRINIVAS Pereyra Tammy L. Location:[facility] Appointment Type: Open Appointment Date:01/07/2025 12:30:00 PM Scheduled Provider: [facility] Type:PUL Pulmonary Function Test (FT) Future Scheduled Tests Laboratory* Microalbumin Level Urine 12/19/24 * Urine Microalbumin/Creatinine Ratio 12/19/24 * Basic Metabolic Panel 01/02/25 [facility] evaluation + Plan note Future Appointments Appointment Date:01/07/2025 12:30:00 PM Scheduled Provider: [facility] Type:PUL Pulmonary Function Test (FT) Appointment Date:01/29/2025 08:30:00 AM Scheduled Provider:Rick Hernandez PA-C [facility] Appointment Type:Cardiology Follow Up (FT) Appointment Date:02/04/2025 01:40:00 PM Scheduled Provider:SRINIVAS Pereyra Tammy L. Location:[facility] Appointment Type: Open Future Scheduled Tests Laboratory* Basic Metabolic Panel 01/02/25 [facility] Evaluation + Plan note Future Appointments Appointment Date:01/29/2025 08:30:00 AM Scheduled Provider:Rick Hernandez PA-C [facility] Appointment Type:Cardiology Follow Up (FT) Appointment Date:02/04/2025 01:40:00 PM Scheduled Provider:SRINIVAS Pereyra Tammy L. Location:[facility] Appointment Type: Open Future Scheduled Tests Laboratory* Basic Metabolic Panel 01/02/25 [facility] Evaluation + Plan note Future Appointments Appointment Date:03/05/2025 01:00:00 PM Scheduled Provider:SRINIVAS Pereyra Tammy L. Location:[facility] Appointment Type: Open Appointment Date:03/12/2025 01:15:00 PM Scheduled Provider:Rick Hernandez PA-C [facility] Appointment Type:Cardiology Follow Up (FT) Future Scheduled Tests Laboratory* Basic Metabolic Panel 01/02/25 [facility] Evaluation note* Diagnosis SOB (shortness of breath) Shortness of breath Obstructive sleep apnea syndrome Obstructive sleep apnea (adult) (pediatric) Moderate persistent asthma without complication Unspecified asthma Tobacco abuse Tobacco use disorder documented in this encounter [employer] Phone: evaluation note* Diagnosis SOB (shortness of breath) Shortness of breath Obstructive sleep apnea (adult) (pediatric) Moderate persistent asthma without complication Unspecified asthma documented in this encounter [employer] Phone: evaluation note* Diagnosis Hypertension, unspecified type Bilateral leg edema Edema documented in this encounter [employer] Phone: evalfnovrl note* Diagnosis Onset Date Resolution Status Acute congestive heart failure acute Acute exacerbation of CHF (congestive heart failure) acute Acute respiratory failure with hypoxia acute Chest pain acute Shortness of breath acute [facility] Work Phone: Evaluation note* Diagnosis Onset Date Resolution Status Acute congestive heart failure acute Acute exacerbation of CHF (congestive heart failure) acute Acute respiratory failure with hypoxia acute Chest pain acute COPD with acute exacerbation acute Shortness of breath acute [facility] Work Phone: Evaluation note* Diagnosis Alcohol abuse- Primary Alcohol abuse, unspecified documented in this encounter [employer] Phone: [email or web address] note* Diagnosis Left hand weakness Muscle weakness (generalized) documented in this encounter [employer] Phone: evaluation note* Diagnosis Weakness of both legs Other musculoskeletal symptoms referable to limbs documented in this encounter [employer] Phone: evaluation note* Diagnosis Fatigue, unspecified type Screening, lipid Screening for lipoid disorders documented in this encounter [employer] Phone: evalshmmpm note* Diagnosis Right hip pain Pain in joint, pelvic region and thigh documented in this encounter [employer] note* Diagnosis Gastroesophageal reflux disease, unspecified whether esophagitis present- Primary Morbid obesity with BMI of 50.0-59.9, adult BRENDA (obstructive sleep apnea) Obstructive sleep apnea (adult) (pediatric) Type 2 diabetes mellitus without complication, without long-term current use of insulin [facility] N[facility] No data available for this section [facility] Discharge instructions No data available for this section [facility] Additional Instructions Continue use of CPAP as before.[facility] Work Phone: Hospital Discharge instructions* Attachments The following attachments cannot be sent through Care Everywhere. * Alcohol Intoxication: Acute (Latvian) [facility] [employer] Work Phone: progress note No data available for this section [facility] [employer] for referral (narrative) Referred by: Parish PATE [facility] [employer] for referral (narrative) Referred by: Lupis SCHWARTZ MD, FAAFP Referred by: Lupis SCHWARTZ MD, FAAFP [facility] [employer] for referral (narrative) , colonscopy, hx of polyps Referred by: Yocasta SMITH, 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PINSETTER MECH[employer], Myron Hamilton [facility] [employer] for referral (narrative) , X-ray tonight, failed PT Referred by: Yocasta SMITH, 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PINSETTER MECH[employer], Myron Hamilton [facility] Assessments Diagnosis Syncope and collapse Pre-operative clearance [...] FoundDocuments on File Type Date Recorded Patient Weld Engineer Expl anation Advance Directives and Living Will Power of Cloud Engineer Latest Code Status on File Code Status Date Activated Date Inactivated Comments Full Code 06/18/2018 1:23 PM 06/19/2018 8:22 PM Full Code 04/26/2018 5:22 PM 04/27/2018 1:14 PM Full Code 04/26/2018 11:04 AM 04/26/2018 5:16 PM Full Code 03/15/2018 1:38 PM 03/16/2018 3:51 PM Full Code 03/15/2018 8:18 AM 03/15/2018 1:38 PM Documents on File Type Date Recorded Patient Weld Engineer Expl anation Advance Directives and Living Will Power of Cloud Engineer Latest Code Status on File Code Status Date Activated Date Inactivated Comments Full Code 06/18/2018 1:23 PM 06/19/2018 8:22 PM Full Code 04/26/2018 5:22 PM 04/27/2018 1:14 PM Full Code 04/26/2018 11:04 AM 04/26/2018 5:16 PM Full Code 03/15/2018 1:38 PM 03/16/2018 3:51 PM Full Code 03/15/2018 8:18 AM 03/15/2018 1:38 PM Documents on File Type Date Recorded Patient Weld Engineer Expl anation ACP-Advance Directive ACP-Power of Cloud Engineer Latest Code Status on File Code Status Date Activated Date Inactivated Comments Full Code 03/17/2020 11:39 AM Full Code 03/17/2020 8:35 AM 03/17/2020 11:39 AM Full Code 06/18/2018 1:23 PM 06/19/2018 8:22 PM Documents on File Type Date Recorded Patient Weld Engineer Expl anation ACP-Advance Directive ACP-Power of Cloud Engineer Latest Code Status on File Code Status [...] Recorded Date/ Time Advance Directives No September 10 023 12:11pm Advance Directive Response Recorded Date/ Time Advance Directives No September 10 023 1:11pm Latest Code Status on File [...] EKG 12 Lead Joselito Hsu MD [address] [place] [address] Status Reason Specialty Diagnoses / Procedures Referred By Contact Referred To Contact Not Required - [facility] Pulmonary Function Testing Diagnoses SOB (shortness of breath) Procedures Full PFT Study With Bronchodilator HC BEFORE / AFTER BRONCHODILATOR Joselito Hsu MD [address] [place] [address] [facility] [address] [place] [address] Status Reason Specialty Diagnoses / Procedures Referred By Contact Referred To Contact Pending Review Radiology Diagnoses Hypertrophy of uterus Right lower quadrant pain Procedures US NON OB TRANSVAGINAL Mulu Dean APRN - [employer] [address] [place] [address] Status Reason Specialty Diagnoses / Procedures Referre d By Contact Referred To Contact Open Radiology Diagnoses Hypertrophy of uterus Right lower quadrant pain Procedures US PELVIS COMPLETE Mulu Dean APRN - [employer] [address] [place] [address] Status Reason Specialty Diagnoses / Procedures Referre d By Contact Referred To Contact Open Radiology Diagnoses RLQ abdominal pain Procedures CT ABDOMEN PELVIS W IV CONTRAST Additional Contrast? Oral Mulu Dean APRN - CNP [address] [place] [address] Specialty Diagnoses / Procedures Referred By Joan dawson Referred To Contact Diagnoses SOB (shortness of breath) Obstructive sleep apnea syndrome Moderate persistent asthma without complication Tobacco abuse Procedures Full PFT Study With Bronchodilator Mulu Dean APRN - [facility] [address] [place] [address] Referral ID Status Reason Start Date Expiration Date V isits Requested Visits Authorized [id number] Pending Review 05/15/2021 05/14/2022 1 1 Specialty Diagnoses / Procedures Referred By Joan dawson Referred To Contact Cardiology Diagnoses Hypertension, unspecified type Bilateral leg edema I10 (ICD-10-CM) - Hypertension, unspecified type Procedures Echocardiogram complete ME ECHO TTHRC R-T 2D W/WOM-MODE COMPL SPEC&COLR D 37888 - ME ECHO TTHRC R-T 2D W/WOM-MODE COMPL SPEC&COLR D Lupis Schwartz MD [address] [place] [address] Referral ID Status Reason Start Date Expiration Date Visits Re quested Visits Authorized [id number] Closed 08/25/2022 08/20/2023 1 1 Discharge Instructions [...] one drug, even if it is an njvj-jmu-yspprfn medication, herb, or dietary supplement, be sure [...] to operate motor Vehicle. Yes * Marina Villasenor RN - 03/17/2020 1:13 PM EDT Pt [...] / AFTER BRONCHODILATOR Joselito Hsu MD [address] [place] [address] [facility] [address] [place] [address] Status Reason Specialty Diagnoses / Procedures Referred By Contact Referred To Contact Pending Review Radiology Diagnoses Hypertrophy of uterus Right lower quadrant pain Procedures HC US PELVIS COMPLETE Mulu Dean, SIGNS AND DISPLAYS SALESPERSON - [employer] [address] [place] [address] [facility] [address] [place] [address] Status Reason Specialty Diagnoses / Procedures Re ferred By Contact Referred To Contact Diagnoses Right lower quadrant abdominal pain Weight gain RIGHT LOWER ABDOMINAL PAIN, WEIGHT GAIN Procedures ME COLONOSCOPY FLX DX W/COLLJ SPEC WHEN PFRMD ME ESOPHAGOGASTRODUODENOSCOPY TRANSORAL DIAGNOSTIC COLONOSCOPY EGD ESOPHAGOGASTRODUODENOSCOPY Glenn Malik MD [address] [facility] [address] [place] [address] [facility] Status Reason Specialty Diagnoses / Procedures Referre d By Contact Referred To Contact Closed Radiology Diagnoses Right lower quadrant pain Procedures CT ABDOMEN PELVIS W CONTRAST Mulu Dean APRN - CNP [address] [place] [address] [place] [address] Specialty Diagnoses / Procedures Referred By Joan dawson Referred To Contact Diagnoses SOB (shortness of breath) Obstructive sleep apnea syndrome Moderate persistent asthma without complication Tobacco abuse Procedures Full PFT Study With Bronchodilator Mulu Dean APRN - CNP [address] [place] [address] Referral ID Status Reason Start Date Expiration Date V isits Requested Visits Authorized [id number] Pending Review 05/15/2021 05/14/2022 1 1 Reason Comments Education Class Specialty Diagnoses / Procedures Referred By Joan dawson Referred To Contact Cardiology Diagnoses Hypertension, unspecified type Bilateral leg edema I10 (ICD-10-CM) - Hypertension, unspecified type Procedures Echocardiogram complete ME ECHO TTHRC R-T 2D W/WOM-MODE COMPL SPEC&COLR D 42558 - ME ECHO TTHRC R-T 2D W/WOM-MODE COMPL SPEC&COLR D Lupis Schwartz MD [address] [place] [address] Referral ID Status Reason Start Date Expiration Date Visits Re quested Visits Authorized [id number] Closed 08/25/2022 08/20/2023 1 1 Reason Comments Chest Pain Chest pain, SOB x1 d ay patient states this started after had 2 bottles of rum today Specialty Diagnoses / Procedures Referred By Joan t Referred To Contact Radiology Diagnoses Fatigue, unspecified type Screening, lipid Procedures VL DUP LOWER EXTREMITY VENOUS BILATERAL US DUP LOWER EXTREMITIES BILATERAL VENOUS Carmen Haley, DO [address] [place] [address] Referral ID Status Reason Start Date Expiration Date Visits Re quested Visits Authorized [id number] Open 11/17/2022 11/17/2023 1 1 Reason Comments New Patient Carmen is interested in bariatric surgery for weight loss and improvement of comorbid conditions. Specialty Diagnoses / Procedures Referred By Contmick t Referred To Contact Multispecialty Diagnoses Morbid obesity with BMI of 50.0-59.9, adult BRENDA (obstructive sleep apnea) Type 2 diabetes mellitus with morbid obesity Benign hypertension [employer] [facility] [address] [place] [address] Phone: tel: Coco Dean MD [address] [place] [address] Phone: tel: Referral ID Status Reason Start Date Expiration Date V isits Requested Visits Authorized [id number] Pending Review 09/28/2024 10/23/2025 1 1 Care Teams (unrecognized sec tion and content) Chucking And Sawing 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 Relationship Specialty Start Date End Date Mulu Dean SIGNS AND DISPLAYS SALESPERSON - PINSETTER [employer]CH[employer]IC [employer] [address] [place] [address] PCP - General Family Medicine 02/17/17 Chucking And Sawing 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 Relationship Specialty Start Date End Date Mulu Dean APRN - [employer] [address] [place] [address] PCP - General Family Medicine 02/17/17 Chucking And Sawing 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 Relationship Specialty Start Date End Date Mulu Dean SIGNS AND DISPLAYS SALESPERSON - PINSETTER [employer] [address] [place] [address] PCP - General Family Medicine 02/17/17 Chucking And Sawing 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 Relationship Specialty Start Date End Date Mulu Dean APRN - [employer] [address] [place] [address] PCP - General Family Medicine 02/17/17 Chucking And Sawing 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 Relationship Specialty Start Date End Date Mulu Dean SIGNS AND DISPLAYS SALESPERSON - PINSETTER [employer] [address] [place] [address] PCP - General Family Medicine 02/17/17 Chucking And Sawing 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 Relationship Specialty Start Date End Date Mulu Dean SIGNS AND DISPLAYS SALESPERSON - PINSETTER [employer]CH[employer] [address] [place] [address] PCP - General Family Medicine 02/17/17 Chucking And Sawing 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 Relationship Specialty Start Date End Date Mulu Dean SIGNS AND DISPLAYS SALESPERSON - PINSETTER [employer]CH[employer] [address] [place] [address] PCP - General Family Medicine 02/17/17 Team [...] Lupis Schwartz MD Primary Care Provider Active Chucking And Sawing 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 Relationship Specialty Start Date End Date Cash Deaneidenver SIGNS AND DISPLAYS SALESPERSON - [employer] [address] [place] [address] PCP - General Family Medicine 02/17/17 Chucking And Sawing 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 Relationship Specialty Start Date End Date Mulu Dean SIGNS AND DISPLAYS SALESPERSON - PINSETTER [employer]CH[employer]IC [employer] [address] [place] [address] PCP - General Family Medicine 02/17/17 Chucking And Sawing 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 Relationship Specialty Start Date End Date Mulu Dean SIGNS AND DISPLAYS SALESPERSON - [employer] [address] [place] [address] PCP - General Family Medicine 02/17/17 Chucking And Sawing 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 Relationship Specialty Start Date End Date Mulu Dean SIGNS AND DISPLAYS SALESPERSON - PINSETTER [employer]CH[employer] PCP - General Family Medicine 02/17/17 Chucking And Sawing 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 Relationship Specialty Start Date End Date Yocasta, MyronDARLEEN CNP [address] [place] [address] PCP - General Nurse Practitioner Family 04/29/23 Chucking And Sawing 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 Relationship Specialty Start Date End Date Myron Rust APRN - [employer] [address] [place] [address] PCP - General Nurse Practitioner [facility] 04/29/23 Chucking And Sawing 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 Relationship Specialty Start Date End Date Myron Rust APRN - CNP [address] [place] [address] PCP - General Nurse Practitioner Family 04/29/23 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 Sawing 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 Relationship Specialty Start Date End Date Myron Rust [employer] [address] [place] [address] PCP - General Nurse Practitioner - Family 11/07/24 Goals (unrecognized section and content) Goals may be documented in a n alternate section INFORMATION SOURCE (unrecogn ized section and content) DATE CREATED AUTHOR 09/18/2022 [facility] DATE CREATED AUTHOR AUTHOR'S ORGANIZ ATION 02/10/2023 [facility] DATE CREATED AUTHOR AUTHOR'S ORGANIZ ATION 09/01/2023 [facility] DATE CREATED AUTHOR AUTHOR'S ORGANIZ ATION 12/23/2023 [facility] DATE CREATED AUTHOR AUTHOR'S ORGANIZ ATION 07/18/2024 [facility] DATE CREATED AUTHOR AUTHOR'S ORGANIZ ATION 09/06/2024 [facility] DATE CREATED AUTHOR AUTHOR'S ORGANIZ ATION 09/15/2024 [place] [facility] DATE CREATED AUTHOR AUTHOR'S ORGANIZ ATION 12/21/2024 [facility] DATE CREATED AUTHOR AUTHOR'S ORGANIZ ATION 12/23/2024 [facility] DATE CREATED AUTHOR AUTHOR'S ORGANIZ ATION 12/27/2024 [facility] DATE CREATED AUTHOR AUTHOR'S ORGANIZ ATION 12/28/2024 [facility] DATE CREATED AUTHOR AUTHOR'S ORGANIZ ATION 12/29/2024 [facility] DATE CREATED AUTHOR AUTHOR'S ORGANIZ ATION 12/30/2024 [facility] DATE CREATED AUTHOR AUTHOR'S ORGANIZ ATION 01/03/2025 [facility] DATE CREATED AUTHOR AUTHOR'S ORGANIZ ATION 01/04/2025 [facility] DATE CREATED AUTHOR AUTHOR'S ORGANIZ ATION 01/06/2025 [facility] DATE CREATED AUTHOR AUTHOR'S ORGANIZ ATION 01/13/2025 [facility] DATE CREATED AUTHOR AUTHOR'S ORGANIZ ATION 01/25/2025 [facility] DATE CREATED AUTHOR AUTHOR'S ORGANIZ ATION 01/31/2025 [facility] DATE CREATED AUTHOR AUTHOR'S ORGANIZ ATION 02/01/2025 [facility] DATE CREATED AUTHOR AUTHOR'S ORGANIZ ATION 02/06/2025 [facility] Scheduled Active and Recently Administ ered [...] BE BASED ON THE PRIMARY CLINICAL RECORDS. [facility]. provides no warranty or guarantee of the accuracy or completeness of information in this document.
--- NOTE | 2025-02-20 13:37 | PM.CN ---
Consult Note: HPI Data of Consult Patient: known to practice within the last 3 years Consult date: 02/20/25 Requesting Physician: Eda Christianson NP Primary Care Provider: Non-Staff Physician, MD Consult Narrative Reason for consult: f/u Narrative: Carmen Casiano a 64 year old female presents for evaluation and management of chronic low back pain. hx of lumbar stenosis, lumbar ddd, and lumbar spondylosis per prior lumbar MRI and xray. pt has failed to benefit from > 6 weeks of PT and provider guided HEP, heat, ice, tylenol, and ibuprofen. pain today 8/10 in left thigh and hip with standing, walking, activity. notes worsening numbness to bilateral feet since last visit. utilizing flexeril 10mg tid prn, meloxicam 7.5mg bid prn, and gabapentin 400mg TID without side effects, no significant improvement. pt interested in further working up for scs trial/implant. cc:: CC: Eda Christianson NP Review of Systems ROS Musculoskeletal Reports: back pain and extremity pain PFSH PFSH Medical History Rheumatoid arthritis ?M06.9 - Rheumatoid arthritis, unspecified (ICD-10) Diabetes ?E11.9 - Type 2 diabetes mellitus without complications (ICD-10) Sleep apnea ?G47.30 - Sleep apnea, unspecified (ICD-10) Asthma ?J45.909 - Unspecified asthma, uncomplicated (ICD-10) CHF (congestive heart failure) ?I50.9 - Heart failure, unspecified (ICD-10) Surgical History History of cataract extraction ?Z98.49 - Cataract extraction status, unspecified eye (ICD-10) History of foot surgery ?Z98.890 - Other specified postprocedural states (ICD-10) History of knee replacement ?Z96.659 - Presence of unspecified artificial knee joint (ICD-10) Meds Home Medications and Allergies Home Medications ?Medication ?Instructions ?Recorded ?Confirmed ?Type aripiprazole 2 mg tablet (Abilify) 2 mg PO DAILY 05/18/23 02/11/25 History cholecalciferol (vitamin D3) 50 50 mcg PO DAILY 05/18/23 02/11/25 History mcg (2,000 unit) capsule (Vitamin D3) empagliflozin 10 mg tablet 10 mg PO DAILY 05/18/23 02/11/25 History (Jardiance) fluoxetine 20 mg capsule 40 mg PO DAILY 05/18/23 02/11/25 History furosemide 40 mg tablet 40 mg PO DAILY 05/18/23 02/11/25 History glipizide 2.5 mg tablet 2.5 mg PO DAILY 05/18/23 02/11/25 History pantoprazole 40 mg tablet,delayed 40 mg PO DAILY 05/18/23 02/11/25 History release potassium chloride 20 mEq 20 meq PO DAILY 05/18/23 02/11/25 History tablet,extended release(part/cryst) (Klor-Con M) rosuvastatin 40 mg tablet 40 mg PO DAILY 05/18/23 02/11/25 History sacubitril 24 mg-valsartan 26 mg 1 tab PO BID 05/18/23 02/11/25 History tablet (Entresto) spironolactone 25 mg tablet 25 mg PO DAILY 05/18/23 02/11/25 History dulaglutide 1.5 mg/0.5 mL 1.5 mg subcut QWEEK 01/26/24 02/11/25 History subcutaneous pen injector (Trulicity) cyclobenzaprine 10 mg tablet 10 mg PO TID PRN muscle spasm #90 05/10/24 02/11/25 Rx tabs meloxicam 7.5 mg tablet 7.5 mg PO BID 10/17/24 02/11/25 History gabapentin 300 mg capsule 300 mg PO TID #90 caps 10/25/24 02/11/25 Rx Allergies Allergy/AdvReac Type Severity Reaction Status Date / Time No Known Drug Allergies Allergy Verified 02/11/25 11:50 Exam Constitutional Documenting provider has reviewed patient's vital signs: yes Common normals: no apparent distress, oriented x3, healthy appearing, alert and well nourished General appearance: cooperative HENMT Common normals: normocephalic, hearing grossly normal bilaterally and moist oral mucous membranes Head and scalp: normocephalic Eye Common normals: PERRL Pupil: PERRL Neck & C-Spine Common normals: full ROM General: normal visual inspection Chest Common normals: inspection of chest normal Respiratory Common normals: normal respiratory effort, no retractions and no use of accessory muscles Back & Pelvis Lumbar spine/lower back: ROM limited, pain with ROM and straight leg raise positive left; no lumbar spinal tenderness Sacroiliac joints: SI joint(s) abnormal Other: decreased sensation left L4/5 l5/s1 strength 4/5 in RLE and 5/5 in LLE left sij positive aliyah(patricks), gaenslens, thigh thrust, compression test Neuro Common normals: oriented x3 Sensorium/orientation: alert Gait (neuro): assistive device used walker Psych Common normals: mental status grossly normal, thought process normal, cooperative, affect normal, speech normal and activity/motor behavior normal Speech: normal speech Thought process: normal thought process Results Additional Findings Additional findings: If on a controlled substance or opioids, I have checked an OARRS report on this patient and there are no aberrancies noted in the prescribing history.??If on a controlled substance or opioid a drug screen was completed and reviewed within the last year, and if there has not been a drug screen completed we ordered one today to monitor higher risk, state monitored pain medication use. As part of providing excellent, safe, comprehensive care, the following was completed at our patient's visit: 1. A medication reconciliation and review to ensure accurate knowledge of current/active medications, including asking our patients to inform us about any [id number]-[id number] medications or herbal remedies/nutritional supplements/alternative remedies. 2. A review to specifically ensure our patients have had annual screening for screening for depression, screening for tobacco use, and screening for unhealthy alcohol use. For concerning screenings had a discussion with the patient, provided patient education, and recommended follow-up with primary care provider when appropriate. If patient noted with a risk of falling, they received education on strength, gait, and balance training to prevent future risk of falling. Portions of this note may have been carried over from the previous visit and updated as appropriate. Please note this office utilizes paper charting in addition to the electronic medical record. A list of current medications, vitals, and PMH is available there as the clinical staff outside of myself do not have access to [facility] charting during the clinic day operations. As part of providing quality comprehensive care the current medications, vitals, and PMH were reviewed in the paper chart. Assessment and Plan Assessment and Plan (1) Lumbar stenosis with neurogenic claudication: Assessment and Plan: The patient has had over 3 months of moderate to severe low back and right SIJ pain with functional impairment and inadequate response to conservative care including NSAIDS (unless there are contraindication such as concurrent blood thinners), multiple oral or topical pain medications, and home exercise program/physical therapy.? Patient has completed >6 weeks of guided home exercise program and/or formal physical therapy program without relief of their symptoms.? The Oswestry Disability Index was completed, and the patient scored a 62%.? The patient noted the following:?? moderate to severe pain impacting ADLs, sitting, standing, walking, sleeping, social life, travel (2) Lumbar spondylosis: (3) Lumbar degenerative disc disease: (4) Sacroiliitis: (5) Lumbar radiculopathy: Plan update lumbar MRI without contrast to assess lumbar stenosis with NC, lumbar radiculopathy, lumbar spondylosis continue HEP as tolerated continue flexeril 10mg tid prn pain spasms continue mobic 7.5mg bid prn pain increase gabapentin 800mg TID, risks vs benefits reviewed will refer to NS for evaluation once MRI updated f/u after NS consultation, consider scs trial
== END 2025-02-20 13:00 | disposition home or self-care (01) ==
PROVIDERS: Visit Provider Nurse Practitioner
DX: M48.062 Spinal stenosis, lumbar region with neurogenic claudication (principal); M47.816 Spondylosis without myelopathy or radiculopathy, lumbar region; M51.369 Other intervertebral disc degeneration, lumbar region without mention of lumbar back pain or lower extremity pain; M46.1 Sacroiliitis, not elsewhere classified; M54.16 Radiculopathy, lumbar region
CPT/HCPCS: G0463

== ENCOUNTER 2025-03-06 12:33 | Outpatient (OUT) | payer OTHER, SELFPAY ==
--- OUTSIDE RECORDS SUMMARY | 2025-03-06 12:35 | XMS_ITS | Encounter Summary ---
Author Organization [facility] Address [address] [place] [address] Care Team Providers Care Splitting 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 Name Role Phone Unavailable Primary Care Provider Unavailabl e Encounter Details Date Type Department Care Team (Late st Contact Info) Description 12/01/2022 Clinisync Result Encounter [facility] External Department Unsolicited Mulu Dean NP [address] [place] [address] Social History Tobacco Use Types [...]
--- OUTSIDE RECORDS SUMMARY | 2025-03-06 12:35 | XMS_ITS | Clinical Summary ---
Author Organization [facility] Address [address] [facility] [place] [address] Care Team Providers Care Business Taxes Specialist Name Role Phone Unavailable Primary Care Provider [...] Plan of Treatment Not on file Insurance [facility] MEDICAID
--- OUTSIDE RECORDS SUMMARY | 2025-03-06 12:35 | XMS_ITS | Clinical Summary ---
Author Organization [facility] Address [address], [address] [place] [address] Care Team Providers Care Plunger Scoop Operator Name Role Phone Nigel, Paris DARLEEN - SHINGLE CARRIER Primary Care Provider + Allergies No known [...] this topic Medical Devices Implanted Type Area Horse Riding Coach Or Instructor Device Identifier Shelf Expiration Date Model / Serial / Lot Cement Smartghv W/ Gent 40gr Must Order 20ea Implanted:Qty : 1 on 03/15/2018 by Yury Gonsalez DO at [facility] Cement Left: Knee JNJ: [employer]-M 04/02/2019 [id number] / / [id number] Cement Smartghv W/ Gent 40gr Must Order 20ea Implanted:Qty : 1 on 03/15/2018 by Yury Gonsalez DO at [facility] Cement Left: Knee JNJ: [employer]-PMM 01/31/2019 [id number] / / [id number] Cement Smartghv W/ Gent 40gr Must Order 20ea Implanted:Qty : 2 on 04/26/2018 by Yury Gonsalez DO at [facility] Cement Right: Knee JNJ: [employer]-M 08/03/2019 [id number] / / [id number] Impl Knee Patella Asym X3 [id number] Implanted:Qty : 1 on 04/26/2018 by Yury Gonsalez DO at [facility] Knee Right: Knee BAR: ORTHOPAED[employer]-PM 02/26/2023 [id number] / / [id number] Procedures Procedure Name Priority [...] - 6.0 % 08/10/2023 3:41 PM EST [employer] Estimated Avg Glucose 108 mg/dL 08/10/2023 3:41 PM EST [employer] Comment: The ADA and AACC recommend providing the estimated average glucose result to permit better patient understanding of their HBA1c result. 08/10/2023 3:41 PM EST 08/10/2023 3:42 PM EST Paris Manning STAFF DEVELOPER [facility] SAULT CHEMISTRY ORDERABLES Fin al Result Performing Organization Address [facility] Co de Phone Number [facility] [address] [place] [address], [facility] [phone] [facility] [address] [place] [address], [facility] [phone] * (ABNORMAL) Lipid Panel (08/10/2023 3:41 PM EST) Cholesterol 206(H) <200 mg/dL 08/10/2023 3:41 PM EST [employer] Comment: Cholesterol Guidelines: <200 Desirable 200-240 Borderline >240 Undesirable HDL 95 >40 mg/dL 08/10/2023 3:41 PM EST [employer] Comment: HDL Guidelines: <40 Undesirable 40-59 Borderline >59 Desirable LDL Cholesterol 67 0 - 130 mg/dL 08/10/2023 3:41 PM EST [employer] Comment: LDL Guidelines: <100 Desirable 100-129 Near to/above Desirable 130-159 Borderline >159 Undesirable Direct (measured) LDL and calculated LDL are not interchangeable tests. Chol/HDL Ratio 2.2 <5 08/10/2023 3:41 PM EST [employer] Comment: Triglycerides 221(H) <150 mg/dL 08/10/2023 3:41 PM EST [employer] Comment: Triglyceride Guidelines: <150 Desirable 150-199 Borderline 200-499 High >499 Very high Based on AHA Guidelines for fasting triglyceride, April 2012. 08/10/2023 3:41 PM EST 08/10/2023 3:42 PM EST Paris Manning STAFF DEVELOPER [facility] SAULT CHEMISTRY ORDERABLES Fin al Result Performing Organization Address City/[facility]/ZIP Co de Phone Number [facility] [address] [place] [address], [facility] [phone] [facility] [employer] [address] [id number], [facility] [phone] * WANG DIGITAL SCREEN W OR WO [...] patient regarding theresults. Mulu Dean APRN - SHINGLE CARRIER IMG MAMMOGRAPHY O RDERABLES Final Result from Last 3 Months or Most Recently Relevant to Health Maintenance Insurance [facility] [place] Advance Directives * Full Code (Latest [...] 11:04 AM 04/26/2018 5:16 PM Care Teams Plunger Scoop Operator Relationship Specialty Start Date End Date Paris Manning APRN - [place] [address] [place] [address] PCP - General Nurse Practitioner, Family 04/29/23
--- NOTE | 2025-03-06 12:36 | MR_ITS ---
The [address] [address] Patient Name: TIFFANIE BLEDSOE MRN: [id number] date: 1960 Sex: F Assigned Patient Location: MRI Current Patient Location: MRI Accession/Order Number: [id number] Exam Date: 03/06/2025 13:40 Report Date: 03/06/2025 20:20 At the request of: MIHIR ARMSTRONG NP Procedure: MR lumbar spine wo con MR lumbar spine wo con 03/06/2025 2:28 PM SIGNS AND SYMPTOMS: ^Lumbar Stenosis With Neuro Claudication PROTOCOL: Multiplanar multisequence MR images of the lumbar spine without IV contrast COMPARISON: None. FINDINGS: The bones of the lumbar spine are in anatomic alignment. There is preservation of vertebral body heights. There is mild disc height loss throughout the lumbar spine. There is Modic type II fatty endplate degenerative change at T10-T11 and T12 11 T12. Modic type II fatty endplate degenerative change is also noted at L1-L2 and L4-5. The conus terminates at the superior endplate of the L2 vertebral body level. No epidural or paraspinous fluid collection is appreciated. At T12-L1: There is a normal disc, central canal, and neural foramen. At L1-L2: There is a broad-based disc bulge with facet hypertrophy and ligamentum flavum thickening. There is mild spinal canal stenosis without significant neural foraminal stenosis. At L2-L3: There is a broad-based disc bulge with facet hypertrophy and ligamentum flavum thickening. There is mild spinal canal stenosis with moderate to severe left and mild right neural foraminal narrowing. There is mild mass effect on the exiting left L2 nerve roots. At L3-L4: There is a broad-based disc bulge with facet hypertrophy. There is mild spinal canal stenosis with mild bilateral neural foraminal narrowing. At L4-L5: There is a circumferential disc bulge with facet hypertrophy and ligamentum flavum thickening. There is mild spinal canal stenosis with moderate to severe right and moderate left neural foraminal narrowing. This mild mass effect on the exiting right L4 nerve roots. At L5-S1: There is a circumferential disc bulge with facet hypertrophy and small bilateral facet effusions. There is no spinal canal narrowing. There is moderate to severe bilateral neural foraminal narrowing with mild mass effect on the exiting L5 nerve roots bilaterally. MR/MR lumbar spine wo con IMPRESSION: At L2-L3: There is a broad-based disc bulge with facet hypertrophy and ligamentum flavum thickening. There is mild spinal canal stenosis with moderate to severe left and mild right neural foraminal narrowing. There is mild mass effect on the exiting left L2 nerve roots. At L4-L5: There is a circumferential disc bulge with facet hypertrophy and ligamentum flavum thickening. There is mild spinal canal stenosis with moderate to severe right and moderate left neural foraminal narrowing. This mild mass effect on the exiting right L4 nerve roots. At L5-S1: There is a circumferential disc bulge with facet hypertrophy and small bilateral facet effusions. There is no spinal canal narrowing. There is moderate to severe bilateral neural foraminal narrowing with mild mass effect on the exiting L5 nerve roots bilaterally. Lesser degrees of degenerative changes are noted as above. Impression dictated by: Tony Becker M.D. 03/06/2025 8:20 PM Dictation Location: [place] [address] Electronically authenticated by: [id number] Y Date: 03/06/2025 20:20
--- OUTSIDE RECORDS SUMMARY | 2025-03-06 12:37 | XMS_ITS | Encounter Summary ---
Author Organization [facility] Address [address], [address] [place] [address] Care Team Providers Care Ends Down Checker Name Role Phone Parsi Manning APRN, CNP Primary Care Provider + Encounter Details Date Type Department Care Team ([facility] st Contact Info) Description 11/08/2017 FollowUp Telephone Encounter [facility] [address] [place] [address] Yuliana Esparza Social History Tobacco [...] documented as of this encounter Care Teams Ends Down Checker Relationship Specialty Start Date End Date Paris Manning APRN - CNP [address] [place] [address] PCP - General Nurse Practitioner, Family 04/29/23 documented as of this encounter
--- OUTSIDE RECORDS SUMMARY | 2025-03-06 12:37 | XMS_ITS | Clinical Summary ---
Author Organization [facility] Address [address] [place] [address] Care Team Providers Care Hand Stone Polisher Name Role Phone Paris Manning [place] Primary Care Provider [phone] Allergies Active Allergy Reactions Criticality Noted Date [...] Type Department Care Team Description 01/17/2025 Telephone [facility] [address] [place] [phone] Veroromel Rene, LPN Other 01/17/2025 Telephone [facility] [address] [place] [phone] Luís Otto PsyD Reschedule 01/01/2025 Telephone [facility] Psychology [address] [place] [phone] Luís Otto, Jessica Reschedule from Last 3 Months Social History Tobacco Use Types Packs/Day Years Used Date Smoking Tobacco: Every Day Cigarettes 0.5 45.7 Started: 07/04/1979 Smokeless Tobacco: Never Tobacco Cessation:Ready [...] Description 03/25/2025 1:20 PM EDT Office Visit [facility] Cardiology [address] [place] [phone] Hilario Hensley MD [address] [place] [address] Health Maintenance Due Date Last Done Comments [...] years 1-dose series) 2022 COVID-19 VACCINE ( - 2024- season) 2025 05/31/2023, 05/11/2022, 12/15/2021, Additional history exists INFLUENZA VACCINE (#1) 2025 , 03/18/2023, 05/11/2022, Additional history exists TETANUS 04/10/2030 04/10/2020, 10/27/2014 TDAP (ADULT) Completed 04/10/2020, 10/27/2014 ZOSTER (SHINGLES) VACCINE Completed 2020, 07/09/2020, 04/10/2020, Additional history exists HEP B VACCINE Aged Out No longer elig ible based on patient's age to complete this topic Insurance [facility] Medicaid Community Plan Care Teams Hand Stone Polisher Relationship Specialty Start Date End Date Paris Manning, SUPERINTENDENT [employer]RI[employer] [address] [place] [address] PCP - General Nurse Practitioner - Family 11/07/24
--- OUTSIDE RECORDS SUMMARY | 2025-03-06 12:37 | XMS_ITS | Encounter Summary ---
Author Organization [facility] Address [address], [address] [place] [address] Care Team Providers Care Cloth Weigher Name Role Phone NigelcSottmy DARLEEN Taylor CNP Primary Care Provider + Reason for Referral * Other (Routine) - Closed Specialty Diagnoses / Procedures Referred By Contmick t Referred To Contact Diagnoses SOB (shortness of breath) Obstructive sleep apnea syndrome Moderate persistent asthma without complication Tobacco abuse Procedures Full PFT Study With Bronchodilator Mulu Dean APRN - CNP Phone: tel: fax: Referral ID Status Reason Start Date Expiration Date Visits Re quested Visits Authorized [id number] Closed 05/15/2021 05/14/2022 1 1 Encounter Details Date Type Department Care Team (Late st Contact Info) Description 05/14/2021 Transcribe Orders [facility] [address] [place] [address] Mulu Dean APRN - CNP [address] [place] [address] SOB (shortness of breath) (Primary [...] Robins MD - 05/21/2021 12:12 [place] [address] PULMONARY FUNCTION PATIENT NAME: TIFFANIE BLEDSOE : 1960 MED REC NO: [id number] ROOM: ACCOUNT NO: [id number] ADMIT DATE: 05/21/2021 PROVIDER: Denver Robins DATE [...] DLCO/VA is normal. DENVER ROBINS [id number] Doc#: [id number] CC: Mulu Dean APRN - EXTRUSION PRESS SUPERVISOR PFT ORDERABLES F inal Result documented in [...] disorder documented in this encounter Care Teams Cloth Weigher Relationship Specialty Start Date End Date Paris Manning APRN - CNP [address] [place] [address] PCP - General Nurse Practitioner, Family 04/29/23 documented as of this encounter
--- OUTSIDE RECORDS SUMMARY | 2025-03-06 12:37 | XMS_ITS | Encounter Summary ---
Author Organization [facility] Address [address], [address] [place] [address] Care Team Providers Care Information Security Consultant Name Role Phone Paris Manning APRN, CNP Primary Care Provider + Reason for Referral * Imaging (Routine) - Closed Specialty Diagnoses / Procedures Referred By Contac t Referred To Contact Radiology Diagnoses Localized edema Hypouricemia Procedures US LIVER Paris Manning APRN - CNP [address] [place] [address] Phone: tel: fax: Referral ID Status Reason Start Date Expiration Date Visits Re quested Visits Authorized [id number] Closed 08/15/2023 08/14/2024 1 1 Encounter Details Date Type Department Care Team (Latest Contact Info) Description 08/15/2023 Transcribe Orders [facility] Pre Access [address] [place], [place] [phone] Paris Manning APRN - CNP [address] [place] [address] Localized edema (Primary Dx); Hypouricemia [...] chemistry documented in this encounter Care Teams Information Security Consultant Relationship Specialty Start Date End Date Paris Manning APRN - CNP [address] [place] [address] PCP - General Nurse Practitioner, Family 04/29/23 documented as of this encounter
--- OUTSIDE RECORDS SUMMARY | 2025-03-06 12:37 | XMS_ITS | Encounter Summary ---
Author Organization [facility] Address [address] [facility], [address] [place] [address] Care Team Providers Care Tomographic Tech Name Role Phone Nigel Paris DARLEEN - BOX GLUER Primary Care Provider + Reason for Referral * Imaging (Routine) - Closed Specialty Diagnoses / Procedures Referred By Contac t Referred To Contact Radiology Diagnoses Pain in right hip Procedures MRI LUMBAR SPINE WO CONTRAST Gio Menendez DO [address] [place] [address] Phone: tel: Referral ID Status Reason Start Date Expiration Date Visits Re quested Visits Authorized [id number] Closed 11/30/2023 01/14/2024 1 1 Encounter Details Date Type Department Care Team (Latest Contact Info) Description 12/12/2023 Transcribe Orders [facility] Pre Access [address] [place] [address] Gio Menendez DO [address] [place] [address] Pain in right hip (Primary Dx) Social [...] into the right L5 pedicle. Procedure Note [place], Dwayne Elliott MD - 12/22/2023 HISTORY: Low [...] most severe on the right at the L4-A4cgyio. 2. No central spinal canal stenosis of [...] thigh documented in this encounter Care Teams Tomographic Tech Relationship Specialty Start Date End Date Paris Mannnig APRN - BOX GLUER [address] [place] [address] PCP - General Nurse Practitioner, Family 04/29/23 documented as of this encounter
--- OUTSIDE RECORDS SUMMARY | 2025-03-06 12:37 | XMS_ITS | Encounter Summary ---
Author Organization [facility] Address [address], [address] [place] [address] Care Team Providers Care Associate Partner Name Role Phone Paris Manning APRN, CNP [...] Expiration Date Visits Re quested Visits Authorized [id number] Closed 12/01/2022 12/01/2023 1 1 Encounter Details Date Type Department Care Team (Latest Contact Info) Description 12/01/2022 Transcribe Orders [facility] Pre Access [address] [place] [id number] Paris Manning APRN - CNP [address] [place] [phone] Encounter for screening mammogram for malignant neoplasm [...] mammogram documented in this encounter Care Teams Associate Partner Relationship Specialty Start Date End Date Paris Manning APRN - WEAVING MACHINE OPERATOR [address] [place] [address] PCP - General Nurse Practitioner, Family 04/29/23 documented as of this encounter
--- OUTSIDE RECORDS SUMMARY | 2025-03-06 17:35 | XMS_ITS | CCD ---
Author Organization [facility] Care Team Providers Care Car Racer Name Role Phone Mulu Dean Primary Care Provider Mulu DEAN Primary Care Physician Myron Rust Primary Care Physician Jermaine MOREJON - CERTIFIED CODER, Mulu Primary Care Pro vider NON STAFF Primary Care Provider Unavailabl e DO Joo Ramos Emergency Provider [phone] MD Marilyn Sun Admit Provider MD Marilyn Sun Attending Provider DO Joo [...] le YOCASTA, MYRON Primary Care Unavailable MEGHAN, EDA Referring Unavailable YOCASTA, MYRON Primary Care Unavailable KAMALJIT MENENDEZ Referring Unavailable YOCASTA, MYRON Primary Care Unavailable YOCASTA, MYRON Referring Unavailable YOCASTA, MYRON Primary Care Unavailable YOCASTA, MYRON Referring Unavailable YOCASTA, MYRON Primary Care Unavailable YOCASTA, MYRON Referring Unavailable YOCASTA, MYRON Primary Care Unavailable MEGHAN, EDA Referring Unavailable YOCASTA, MYRON Primary Care Unavailable MEGHAN, EDA Referring Unavailable YOCASTA, MYRON Primary Care Unavailable YOCASTA, MYRON Primary Care Unavailable LYNSEY, VESELIN Attending Unavailable LYNSEY, VESELIN Attending Unavailable YOCASTA, MYRON Primary Care Unavailable MEGHAN, EDA Referring Unavailable YOCASTA, MYRON Primary Care Unavailable Yocasta, MSN, MASTER SCHEDULER-CERTIFIED CODER Myron Hamilton Attending U jesika Rust, MSN, MASTER SCHEDULER-CERTIFIED CODER Myron Hamilton Admitting U jesika CARBAJAL, XXXX [...] Walker Wesley Attending Unavaila caroline Rust, MSN, MASTER SCHEDULER-IRVING Hamilton Attending U jesika Rust, MSN, MASTER SCHEDULER-CERTIFIED CODER Myron Hamilton Attending U jesika Rust, MSN, MASTER SCHEDULER-CERTIFIED CODER Myron Hamilton Attending U jesika Rust, MSN, MASTER SCHEDULER-CERTIFIED CODER Myron Hamilton Attending U jesika Rust, MSN, MASTER SCHEDULER-CERTIFIED CODER Myron Hamilton Attending U Alirio Ennis Attending Unavaila caroline NONE, XXXX Referring Unavailable Myron Rust CNP Primary Care Provider Yocasta, Myron L. Attending Unavailable Yocasta, Myron L. Attending Unavailable Yocasta, Myron L. Attending Unavailable Yocasta, Myron L. Admitting Unavailable Yocasta, MSN, MASTER SCHEDULER-CERTIFIED CODER Myron L. Admitting U navailable Yocasta, MSN, MASTER SCHEDULER-CERTIFIED CODER Myron L. Attending U navailable Mendez, Astrit H Attending Unavailable Abisai Kaur Attending Unavailable [...] Yocasta, Myron L. Attending Unavailable Yocasta, MSN, MASTER SCHEDULER-CERTIFIED CODER Myron L. Admitting U navailable Yocasta, MSN, MASTER SCHEDULER-CERTIFIED CODER Myron L. Attending U navailable Yocasta, Myron L. Admitting Unavailable Yocasta, Myron L. Attending Unavailable Yocasta, Myron L. Referring Unavailable Abisai Kaur Attending Unavailable Abisai Kaur Admitting Unavailable Oneal Newman Attending Unavailable Coco DEAN Attending Unavailabl e AVITA OUTSIDE ORDER, OTHER Referring Unava ilable Yocasta, Myron L. Admitting Unavailable Yocasta, Myron L. Attending Unavailable Yocasta, Myron L. Admitting Unavailable Yocasta, Myron L. Attending Unavailable Giedraitis , Calvin Hunt Attending Unavailable Giedraitis , Calvin Hunt Attending Unavailable Gimarleyitis , Calvin Hunt Attending Unavailable Gimarleyitis , Calvin Hunt Attending Unavailable Giedraitis , Calvin Hunt Attending Unavailable Yocasta, MSN, MASTER SCHEDULER-CERTIFIED CODER Myron Hamilton Attending U AISHA Peacock Attending Unavailable NONE, XXXX Referring Unavailable Oneal Newman Attending Unavailable Allergies Allergy Classification Reported Allergen(s) Allergy Type Date of Onset Reaction(s) Facility amLODIPine (1 source) amLODIPine; Translations: [amlodipine] Drug Allergy Leg Edema [facility] Angiotensin Converting Enzyme (DESMOND) Inhibitors (1 source) Lisinopril; Translations: [lisinopril] Drug Allergy Persistent cough (finding), Tongue swelling (finding) [facility] metFORMIN (1 source) metFORMIN; Translations: [metformin] Drug Allergy Diarrhea (finding) [facility] (20 sources) amLODIPine; Translations: [amlodipine] Drug Allergy 5 Leg Edema [facility] (20 sources) Lisinopril; Translations: [lisinopril] Drug Allergy Persistent cough (finding), Tongue swelling (finding) [facility] (20 sources) metFORMIN; Translations: [metformin] Drug Allergy 5 Diarrhea (finding), Diarrhea [facility] (13 sources) No Known Medication Allergies; Translations: [No Known Medication Allergies] Propensity to adverse reactions (disorder) [facility] Repository Medications Current Medications Medication Drug Class(es) Dates Sig (Normalized) Sig (Original) 0.25 MG, 0.5 MG Dose 3 ML semaglutide 0.68 MG/ML Pen Injector [Ozempic] (4 sources) Start: 07-18-2024 inject 0.5 mg by subcutaneous injection every week Ozempic 2 mg/3 mL (0.25 mg or 0.5 mg dose) subcutaneous solution 0.5 mg, SubCutaneous, qWeek, # 2 EA, Refills(s) 0, Pharmacy: [facility] #[id number], 168, cm, 07/18/24 11:59:00 EST, Height/Length Dosing, 148.4, kg, 07/18/24 11:59:00 EST, Weight Dosing Start Date: 07/18/24 Status: Ordered Advair HFA 115 mcg-21 mcg/inh inhalation aerosol with adapter (2 sources) Start: 01-29-2025 take 2 puff(s) by inhalation twice daily Advair HFA 115 mcg-21 mcg/inh inhalation aerosol with adapter 2 puff(s), Inhalation, BID, 8 gm, Refill(s) 1, [facility], 168, cm, 01/29/25 8:19:00 EDT, Height/Length [...] breath or wheezing, 100 EA, Refill(s) 1, [facility] #[id number], 168, cm, 10/11/23 14:32:00 EDT, Height/Length Dosing, [...] Albuterol (Eqv-Ventolin HFA) 90 mcg/inh inhalation aerosol (11 sources) Start: 12-29-2024 take 2 puff(s) by inhalation every six hours Albuterol (Eqv-Ventolin HFA) 90 mcg/inh inhalation aerosol 2 puff(s), Inhalation, q6hr Shortness of breath or wheezing, 6.7 gm, Refill(s) 1, [facility], 168, cm, 12/27/24 10:40:00 EDT, Height/Length [...] breath or wheezing, 6.7 gm, Refill(s) 3, [facility] #[id number], 168, cm, 11/27/24 14:20:00 EDT, Height/Length Dosing, 159.8, kg, 11/27/24 14:20:00 EDT, Weight Dosing Start Date: 11/27/24 Status: Ordered Quantity: 6.7 Unit: g Repeat number: 4 Alcohol wipes (20 sources) Start: 04-13-2022 Alcohol wipes Alcohol wipes, See Instructions, 100 EA, 3, Use to check BS daily dx E11.9, [facility] #[id number], Supply, 163, cm, 12/30/21 11:09:00 EDT, Height/Length Dosing, 154, kg, 12/30/21 11:09:00 EDT, Weight Dosing Start Date: 04/13/22 Status: Ordered Quantity: 100.0 Unit: EA Repeat number: 4 Start: 04-13-2022 Alcohol wipes Alcohol wipes, See Instructions, 100 EA, 3, Use to check BS daily dx E11.9, [facility] #[id number], Supply, 163, cm, 12/30/21 11:09:00 EDT, Height/Length Dosing, 154, kg, 12/30/21 11:09:00 EDT, Weight Dosing Start Date: 10/11/22 Status: Ordered Start: 06-03-2021 Alcohol wipes Alcohol wipes, See Instructions, 300 EA, 3, Use to check BS TID and PRN dx E11.9, [facility], 170, cm, 05/27/21 8:31:00 EST, Height/Length Dosing, 157.8, kg, 05/27/21 8:31:00 EST, Weight Dosing Start Date: 06/03/21 Status: Ordered ARIPiprazole 5 mg oral tablet (20 sources) Atypical Antipsychotic Start: 02-22-2024 take 1 tablet by mouth once daily Abilify 5 mg Tab 5 mg = 1 tab(s), Oral, Daily, # 90 tab(s), Refills(s) 4, Pharmacy: [facility] #[id number], 167, cm, 02/22/24 13:09:00 EDT, Height/Length Dosing, 137, kg, 02/22/24 13:09:00 EDT, Weight Dosing Start Date: 05/07/24 Status: Ordered Quantity: 90.0 Unit: tab(s) Repeat number: 5 Start: 01-19-2024 take 1 tablet by manish th once daily Abilify 2 mg Tab 2 mg = 1 tab(s), Oral, Daily, # 90 tab(s), Refills(s) 3, [facility]acy: [facility] #[id number], 167.6, cm, 12/23/23 10:59:00 EDT, Height/Length Dosing, 136, kg, 12/23/23 10:59:00 EDT, Weight Dosing Start Date: 01/19/24 Status: Ordered Start: 12-30-2021 take 1 tablet by manish th once daily Abilify 2 mg Tab 2 mg = 1 tab(s), Oral, Daily, # 90 tab(s), Refills(s) 3, Pharmacy: [facility] #[id number], 167, cm, 01/11/23 11:15:00 EDT, Height/Length Dosing, [...] day(s), # 3 tab(s), Refills(s) 0, Pharmacy: [facility], 168, cm, 12/27/24 10:40:00 EDT, Height/Length [...] 1 EA, 0, Use at home daily, [facility], Supply, 170, cm, 10/02/19 13:41:00 EDT, Height/Length Measured, 156, kg, 10/02/19 13:41:00 EDT, Weight Measured Start Date: 10/02/19 Status: Ordered 24 hr buPROPion hydrochloride 150 mg extended release oral tablet (2 sources) Aminoketone Start: 2024 take 1 tablet by mouth every twenty-four hours buPROPion 150 mg/24 hours XL Tab 150 mg = 1 tab(s), Oral, q24hr, # 30 tab(s), Refills(s) 0, Pharmacy: [facility], 168, cm, 02/04/25 13:39:00 EDT, Height/Length [...] food, # 60 cap(s), Refills(s) 0, Pharmacy: [facility] #[id number], 167, cm, 05/09/23 8:15:00 EST, Height/Length Dosing, 145.6, kg, 05/09/23 8:15:00 EST, Weight Dosing Start Date: 05/09/23 Status: Ordered cephalexin 500 mg oral capsule (4 sources) Cephalosporin Antibacterial Start: 2024 End: 2024 take 1 capsule by mouth four times daily cephalexin 500 mg Cap 500 mg = 1 cap(s), Oral, QID, X 8 day(s), # 32 cap(s), Refills(s) 0, Pharmacy: [facility], 168, cm, 12/27/24 10:40:00 EDT, Height/Length [...] Pain, # 21 cap(s), Refills(s) 0, Pharmacy: [facility] #[id number], 168, cm, 07/11/24 11:16:00 EST, Height/Length Dosing, 152.8, kg, 07/11/24 11:21:00 EST, Weight Dosing Start Date: 07/11/24 Status: Ordered 0.5 ML dulaglutide 6 MG/ML Auto-Injector [Trulicity] (20 sources) GLP-1 Receptor Agonist Start: 2024 inject 3 mg by subcutaneous injection every week Trulicity Pen 3 mg/0.5 mL subcutaneous solution See Instructions, INJECT 3 (THREE) MG UNDER THE SKIN EVERY WEEK., # 2 mL, Refills(s) 0, Pharmacy: [facility], 168, cm, 02/04/25 13:39:00 EDT, Height/Length Dosing, 155.1, kg, 02/04/25 13:39:00 EDT, Weight Dosing Start Date: 02/25/25 Status: Ordered Quantity: 2.0 Unit: mL Repeat number: 1 Start: 01-29-2025 inject 3 mg by subcu taneous injection every week Trulicity Pen 3 mg/0.5 mL subcutaneous solution See Instructions, ADMINISTER 3 MG UNDER THE SKIN EVERY WEEK, # 2 mL, Refills(s) 0, Pharmacy: [facility], 168, cm, 01/29/25 8:19:00 EDT, Height/Length Dosing, 159, kg, 01/24/25 8:55:00 EDT, Weight Dosing Start Date: 01/29/25 Status: Ordered Quantity: 2.0 Unit: mL Repeat number: 1 Start: 12-17-2024 inject 3 mg by subcu taneous injection every week Trulicity Pen 3 mg/0.5 mL subcutaneous solution See Instructions, ADMINISTER 3 MG UNDER THE SKIN EVERY WEEK, # 2 mL, Refills(s) 0, Pharmacy: [facility] #[id number], 168, cm, 11/27/24 14:20:00 EDT, Height/Length Dosing, 159.8, kg, 11/27/24 14:20:00 EDT, Weight Dosing Start Date: 12/17/24 Status: Ordered Quantity: 2.0 Unit: mL Repeat number: 1 Start: 10-01-2024 inject 3 mg by subcu taneous injection every week Trulicity Pen 3 mg/0.5 mL subcutaneous solution 3 mg, SubCutaneous, qWeek, # 2 mL, Refills(s) 2, Pharmacy: [facility] #[id number], 168, cm, 09/12/24 13:00:00 EDT, Height/Length Dosing, 154.1, kg, 09/12/24 13:00:00 EDT, Weight Dosing Start Date: 10/01/24 Status: Ordered Quantity: 2.0 Unit: mL Repeat number: 3 Indications: Type 2 diabetes mellitus with other specified complication; Start: 02-22-2024 inject 3 mg by subcu taneous injection every week Trulicity Pen 3 mg/0.5 mL subcutaneous solution 3 mg, SubCutaneous, qWeek, # 4 EA, Refills(s) 2, Pharmacy: [facility] #[id number], 167, cm, 02/22/24 13:09:00 EDT, Height/Length Dosing, 137, kg, 02/22/24 13:09:00 EDT, Weight Dosing Start Date: 02/22/24 Status: Ordered Start: 01-17-2024 Trulicity Pen 1.5 mg/0.5 mL subcutaneous solution See Instructions, inject 1 AND 1/2 milligrams subcutaneously weekly, # 2 mL, Refills(s) 0, Pharmacy: [facility] #[id number], 167.6, cm, 12/23/23 10:59:00 EDT, Height/Length Dosing, 136, kg, 12/23/23 10:59:00 EDT, Weight Dosing Start Date: 01/17/24 Status: Ordered Start: 12-22-2023 inject 1.5 mg by sub cutaneous injection every week Trulicity Pen 1.5 mg/0.5 mL subcutaneous solution 1.5 mg, SubCutaneous, qWeek, # 4 EA, Refills(s) 0, Pharmacy: [facility] #[id number], 168, cm, 12/06/23 14:55:00 EDT, Height/Length Dosing, 139, kg, 12/06/23 14:55:00 EDT, Weight Dosing Start Date: 12/22/23 Status: Ordered Start: 10-11-2023 inject 1.5 mg by sub cutaneous injection every week Trulicity Pen 1.5 mg/0.5 mL subcutaneous solution 1.5 mg, SubCutaneous, qWeek, # 4 EA, Refills(s) 0, Pharmacy: [facility] #[id number], 168, cm, 10/11/23 14:32:00 EDT, Height/Length Dosing, [...] Daily, # 90 tab(s), Refills(s) 4, Pharmacy: [facility], 168, cm, 01/29/25 8:19:00 EDT, Height/Length Dosing, 159, kg, 01/24/25 8:55:00 EDT, Weight Dosing Start Date: 01/29/25 Status: Ordered Quantity: 90.0 Unit: tab(s) Repeat number: 5 Start: 09-22-2022 take 1 tablet by manish th once daily Jardiance 10 mg oral tablet 10 mg, Oral, Daily, # 90 tab(s), Refills(s) 4, Pharmacy: [email or web address] #[id number], 168, cm, 09/12/24 13:00:00 EDT, Height/Length Dosing, 154.1, kg, 09/12/24 13:00:00 EDT, Weight Dosing Start Date: 10/26/24 Status: Ordered Quantity: 90.0 Unit: tab(s) Repeat number: 5 FLUoxetine 20 mg oral capsule (20 sources) Serotonin Reuptake Inhibitor Start: 01-29-2025 take 2 capsules by mouth once daily FLUoxetine 20 mg Cap 40 mg = 2 cap(s), Oral, Daily, # 180 cap(s), Refills(s) 4, Pharmacy: [facility], 168, cm, 01/29/25 8:19:00 EDT, Height/Length [...] Daily, # 180 cap(s), Refills(s) 4, Pharmacy: [facility] #[id number], 168, cm, 09/12/24 13:00:00 EDT, Height/Length Dosing, [...] for 30 day(s), 60 blister(s), Refill(s) 0, [facility] #[id number], 168, cm, 11/27/24 14:20:00 EDT, Height/Length Dosing, [...] BID, # 60 tab(s), Refills(s) 2, Pharmacy: [facility], 168, cm, 01/01/25 13:49:00 EDT, Height/Length Dosing, 161.7, kg, 01/01/25 13:49:00 EDT, Weight Dosing Start Date: 01/01/25 Status: Ordered Quantity: 60.0 Unit: tab(s) Repeat number: 3 Indications: Unspecified diastolic (congestive) heart failure; Localized edema; Start: 12-29-2024 take 1 tablet by manish th twice daily furosemide 40 mg Tab 40 mg = 1 tab(s), Oral, BID, # 60 tab(s), Refills(s) 0, Pharmacy: [facility], 168, cm, 12/27/24 10:40:00 EDT, Height/Length [...] Daily, # 90 tab(s), Refills(s) 1, Pharmacy: [facility] #[id number], 168, cm, 06/05/24 13:03:00 EST, Height/Length Dosing, 145.9, kg, 06/05/24 13:03:00 EST, Weight Dosing Start Date: 06/05/24 Status: Ordered Quantity: 90.0 Unit: tab(s) Repeat number: 2 Indications: Localized edema; Start: 01-31-2024 take 1 tablet by manish th once daily furosemide 40 mg Tab 40 mg = 1 tab(s), Oral, Daily, # 90 tab(s), Refills(s) 1, Pharmacy: [facility] #[id number], 167.6, cm, 12/23/23 10:59:00 EDT, Height/Length Dosing, 136, kg, 12/23/23 10:59:00 EDT, Weight Dosing Start Date: 01/31/24 Status: Ordered Start: 08-10-2023 take [address] [facility] once daily furosemide 40 mg Tab 40 mg = 1 tab(s), Oral, Daily, # 90 tab(s), Refills(s) 1, Pharmacy: [facility] #[id number], 167, cm, 08/10/23 14:24:00 EST, Height/Length Dosing, 151.4, kg, 08/10/23 14:24:00 EST, Weight Dosing Start Date: 08/10/23 Status: Ordered Start: 09-22-2022 Lasix 20 mg Ta b 20 mg = 1 tab(s), Oral, As Directed, # 30 tab(s), Refills(s) 1, Pharmacy: [facility] #[id number], 167, cm, 09/29/22 11:37:00 EDT, Height/Length Dosing, 149.2, kg, 09/29/22 11:37:00 EDT, Weight Dosing Start Date: 09/29/22 Status: Ordered Start: 09-16-2022 take [address] [facility] once daily furosemide 40 mg Tab 40 mg = 1 tab(s), Oral, Daily, # 90 tab(s), Refills(s) 1, [facility]acy: [facility] #[id number], 167, cm, 11/26/22 13:06:00 EDT, Height/Length Dosing, 140, kg, 11/26/22 13:06:00 EDT, Weight Dosing Start Date: 12/27/22 Status: Ordered Start: 09-14-2022 take [address] [facility] once daily Furosemide (Lasix) 40 mg tablet Active 40 MG PO Daily September 14, 2022 12:00am Start: 08-20-2022 take 2 tablets by [facility] once daily Lasix 20 mg Tab 40 mg = 2 tab(s), Oral, Daily, Take with potassium supplment., # 180 tab(s), Refills(s) 5, [facility]acy: [facility] #[id number], 163, cm, 08/20/22 14:05:00 EST, Height/Length Dosing, [...] Daily, # 90 tab(s), Refills(s) 1, Pharmacy: [facility] #[id number], 168, cm, 11/27/24 14:20:00 EDT, Height/Length Dosing, [...] # 90 tab(s), Refills(s) 1, Pharmacy: [facility] #[id number], 163, cm, 12/30/21 11:09:00 EDT, Height/Length Dosing, 154, kg, 12/30/21 11:09:00 EDT, Weight Dosing Start Date: 04/13/22 Status: Ordered Start: 12-30-2021 take 1 tablet by manish th once daily glipiZIDE 2.5 mg ER Tab 2.5 mg = 1 tab(s), Oral, Daily, # 90 tab(s), Refills(s) 1, [facility], 163, cm, 12/30/21 11:09:00 EDT, Height/Length Dosing, 154, kg, 12/30/21 11:09:00 EDT, Weight Dosing Start Date: 12/30/21 Status: Ordered Glucometer (20 sources) Start: 06-03-2021 Glucometer Glu cometer, See Instructions, 1 EA, 0, Glucometer to test BS TID and PRN dx E11.9, [facility] , [facility], 170, cm, 05/27/21 8:31:00 EST, Height/Length Dosing, 157.8, kg, 05/27/21 8:31:00 EST, Weight Dosing Start Date: 06/03/21 Status: Ordered Quantity: 1.0 Unit: EA Repeat number: 1 Start: 06-03-2021 Glucometer Glu cometer, See Instructions, 1 EA, 0, Glucometer to test BS TID and PRN dx E11.9, [facility] , [facility], 170, cm, 05/27/21 8:31:00 EST, Height/Length Dosing, 157.8, kg, 05/27/21 8:31:00 EST, Weight Dosing Start Date: 06/03/21 Status: Ordered Glucose (1 source) Start: 06-03-2021 Glucose Kit Glucose Kit, See Instructions, 1 EA, 0, Glucose meter. Include autolet, matching test strips, lancets, & alcohol wipes, #300 or as allowed by insurance; Test TID and PRN. DX: E11.9, [facility], [facility], 170, cm, 05/27/21 8:31:00 EST, Height... Start Date: 06/03/21 Status: Ordered hydroCHLOROthiazide 50 mg oral tablet (20 sources) Thiazide Diuretic Start: 04-13-2022 take 1 tablet by mouth once daily hydrochlorothiazide 50 mg Tab 50 mg = 1 tab(s), Oral, Daily, # 90 tab(s), Refills(s) 1, Pharmacy: [facility] #[id number], 163, cm, 12/30/21 11:09:00 EDT, Height/Length Dosing, 154, kg, 12/30/21 11:09:00 EDT, Weight Dosing Start Date: 04/13/22 Status: Ordered Start: 08-03-2021 take 1 tablet by manish once daily hydrochlorothiazide 50 mg Tab 50 mg = 1 tab(s), Oral, Daily, # 30 tab(s), Refills(s) 5, Pharmacy: [facility], 170, cm, 07/28/21 10:34:00 EST, Height/Length Dosing, 152, kg, 07/28/21 10:34:00 EST, Weight Dosing Start Date: 08/03/21 Status: Ordered take 2 tablets by mo [facility] once daily hydroCHLOROthiazide (HYDRODIURIL) 25 MG tablet Take 2 tablets by mouth daily 0 Active take 1 tablet by manish once daily hydroCHLOROthiazide (HYDRODIURIL) 25 MG tablet Take 25 mg by mouth daily 0 Active icosapent ethyl 1000 mg oral capsule (1 source) Start: 05-29-2021 Vascepa 1 g oral capsule 2 gram = 2 cap(s), Oral, BID, # 120 cap(s), Refills(s) 5, [facility], 170, cm, 05/27/21 8:31:00 EST, Height/Length Dosing, 157.8, kg, 05/27/21 8:31:00 EST, Weight Dosing Start Date: 05/29/21 Status: Ordered loratadine 10 mg oral tablet (20 sources) Start: 09-23-2020 take 1 tablet by mouth once daily as needed loratadine 10 mg Tab 10 mg = 1 tab(s), Oral, Daily, PRN as needed for allergy symptoms, # 90 tab(s), Refills(s) 3, Pharmacy: [facility] #[id number], 163, cm, 12/30/21 11:09:00 EDT, Height/Length Dosing, [...] meals, # 60 tab(s), Refills(s) 2, Pharmacy: [facility] , 170, cm, 07/28/21 10:34:00 EST, Height/Length Dosing, 152, kg, 07/28/21 10:34:00 EST, Weight Dosing Start Date: 08/24/21 Status: Ordered montelukast 10 mg oral tablet (20 sources) Leukotriene Receptor Antagonist Start: 10-16-2019 take 1 tablet by mouth once daily in the evening Singulair 10 mg Tab 10 mg = 1 tab(s), Oral, qPM, # 30 tab(s), Refills(s) 2, Pharmacy: [facility] , 170, cm, 10/16/19 9:09:00 EDT, Height/Length [...] at a time, for 24 hours only, [facility], 168, cm, 01/02/25 13:43:00 EDT, Height/Length Dosing, 159, kg, 01/02/25 13:43:00 EDT, Weight Dosing Start Date: 01/02/25 Stop Date: 01/23/25 Status: Ordered Quantity: 21.0 Unit: patch(es) Repeat number: 1 Start: 09-22-2022 End: 10-06-2022 nicotine 21 mg/24 hr Transde rm ER Film 1 patch(es), Topical, Daily for 14 day(s), 14 EA, Refill(s) 0, [facility] #[id number], 167, cm, 09/22/22 8:24:00 EDT, Height/Length Dosing, 157.4, kg, 09/22/22 8:24:00 EDT, Weight Dosing Start Date: 09/22/22 Stop Date: 10/06/22 Status: Ordered nystatin 100 unt/mg topical powder (3 sources) Polyene Antifungal Start: 01-02-2025 nystatin Top 100,000 units/g Pwdr 1 beto, Topical, BID, 15 gram, Refill(s) 1, [facility], 168, cm, 01/02/25 13:43:00 EDT, Height/Length [...] Daily, # 90 tab(s), Refills(s) 4, Pharmacy: [facility], 168, cm, 01/02/25 13:43:00 EDT, Height/Length Dosing, 159, kg, 01/02/25 13:43:00 EDT, Weight Dosing Start Date: 01/15/25 Status: Ordered Quantity: 90.0 Unit: tab(s) Repeat number: 5 Start: 05-07-2024 take 1 tablet by [facility] once daily Pantoprazole [address] Tab 40 mg = 1 tab(s), Oral, Daily, # 90 tab(s), Refills(s) 3, Pharmacy: [facility] #[id number], 167, cm, 02/22/24 13:09:00 EDT, Height/Length Dosing, 137, kg, 02/22/24 13:09:00 EDT, Weight Dosing Start Date: 05/07/24 Status: Ordered Quantity: 90.0 Unit: tab(s) Repeat number: 4 Start: 02-20-2024 take 1 tablet by manish th once daily Pantoprazole [address] Tab 40 mg = 1 tab(s), Oral, Daily, # 90 tab(s), Refills(s) 3, Pharmacy: [facility] #[id number], 167.6, cm, 12/23/23 10:59:00 EDT, Height/Length Dosing, 136, kg, 12/23/23 10:59:00 EDT, Weight Dosing Start Date: 02/20/24 Status: Ordered Start: 09-01-2019 take 1 tablet by manish th once daily Pantoprazole [address] Tab 40 mg = 1 tab(s), Oral, Daily, # 90 tab(s), Refills(s) 3, Pharmacy: [facility] #[id number], 167, cm, 01/11/23 11:15:00 EDT, Height/Length Dosing, 138, kg, 01/11/23 11:15:00 EDT, Weight Dosing Start Date: 02/10/23 Status: Ordered rosuvastatin calcium 40 mg oral tablet (20 sources) HMG-CoA Reductase Inhibitor Start: 11-27-2024 take 1 tablet by mouth once daily Crestor 40 mg Tab 40 mg = 1 tab(s), Oral, Daily, # 90 tab(s), Refills(s) 3, Pharmacy: [facility] #[id number], 168, cm, 11/27/24 14:20:00 EDT, Height/Length Dosing, [...] Daily, # 90 tab(s), Refills(s) 3, Pharmacy: [facility] #[id number], 167, cm, 05/09/23 8:15:00 EST, Height/Length Dosing, 145.6, kg, 05/09/23 8:15:00 EST, Weight Dosing Start Date: 06/28/23 Status: Ordered Start: 10-08-2022 take 1 tablet by manish once daily Crestor 40 mg Tab 40 mg = 1 tab(s), Oral, Daily, # 90 tab(s), Refills(s) 1, [id number], 167, cm, 09/29/22 11:37:00 EDT, Height/Length Dosing, 149.2, kg, 09/29/22 11:37:00 EDT, Weight Dosing Start Date: 10/08/22 Status: Ordered Start: 04-13-2022 take [address] [facility] once daily Crestor 40 mg Tab 40 mg = 1 tab(s), Oral, Daily, # 90 tab(s), Refills(s) 1, Pharmacy: [facility] #[id number], 163, cm, 12/30/21 11:09:00 EDT, Height/Length Dosing, 154, kg, 12/30/21 11:09:00 EDT, Weight Dosing Start Date: 04/13/22 Status: Ordered Start: 12-30-2021 take [address] [facility] once daily Crestor 40 mg Tab 40 mg = 1 tab(s), Oral, Daily, # 30 tab(s), Refills(s) 5, [facility]: [facility], 163, cm, 12/30/21 11:09:00 EDT, Height/Length Dosing, [...] Daily, # 90 tab(s), Refills(s) 4, [facility]acy: [id number], 168, cm, 01/02/25 13:43:00 EDT, Height/Length Dosing, 159, kg, 01/02/25 13:43:00 EDT, Weight Dosing Start Date: 01/15/25 Status: Ordered Quantity: 90.0 Unit: tab(s) Repeat number: 5 Indications: Essential (primary) hypertension; Start: 06-05-2024 take 1 tablet by [facility] once daily spironolactone 25 mg Tab 25 mg = 1 tab(s), Oral, Daily, # 90 tab(s), Refills(s) 1, Pharmacy: [facility] #[id number], 168, cm, 06/05/24 13:03:00 EST, Height/Length Dosing, 145.9, kg, 06/05/24 13:03:00 EST, Weight Dosing Start Date: 06/05/24 Status: Ordered Quantity: 90.0 Unit: tab(s) Repeat number: 2 Indications: Essential (primary) hypertension; Start: 12-14-2022 End: 04-08-2024 take 1 tablet by mouth once daily spironolactone 25 mg Tab 25 mg = 1 tab(s), Oral, Daily, X 90 day(s), # 90 tab(s), Refills(s) 1, Pharmacy: [facility] #[id number], 168, cm, 10/11/23 14:32:00 EDT, Height/Length Dosing, 160.2, kg, 10/11/23 14:32:00 EDT, Weight Dosing Start Date: 10/11/23 Stop Date: 04/08/24 Status: Ordered Start: 09-20-2022 take 1 tablet by manish th twice daily spironolactone 25 mg Tab 25 mg = 1 tab(s), Oral, BID, # 60 tab(s), Refills(s) 4, [facility]: [facility] #[id number], 163, cm, 09/06/22 11:28:00 EST, Height/Length Dosing, [...] 60 tab(s), Refills(s) 0, Pharmacy: [facility] #[id number], 163, cm, 08/20/22 14:05:00 EST, Height/Length Dosing, 155, kg, 08/20/22 14:05:00 EST, Weight Dosing Start Date: 08/23/22 Status: Ordered Symbicort 160/4.5 inhalation aerosol with adapter (5 sources) Start: 07-23-2022 Symbicort 160/ 4.5 inhalation aerosol with adapter 2 puff(s), Inhalation, BID, 1 EA, Refill(s) 5, rinse mouth and throat after use, [facility] #[id number], 163, cm, 12/30/21 11:09:00 EDT, Height/Length Dosing, 154, kg, 12/30/21 11:09:00 EDT, Weight Dosing Start Date: 07/23/22 Status: Ordered Start: 10-26-2021 take 2 puff(s) by in halation twice daily Symbicort 160/4.5 inhalation aerosol with adapter 2 puff(s), Inhalation, BID, 1 EA, Refill(s) 5, rinse mouth and throat after use, [facility], 170, cm, 07/28/21 10:34:00 EST, Height/Length Dosing, 152, kg, 07/28/21 10:34:00 EST, Weight Dosing Start Date: 10/26/21 Status: Ordered 60 actuat tiotropium 0.32825 mg/actuat inhalation spray (20 sources) Anticholinergic Start: 12-30-2021 take 2 puff(s) by inhalation once daily Spiriva Respimat 1.25 mcg/inh inhalation aerosol 2 puff(s), Inhalation, Daily, 3 EA, Refill(s) 3, [facility], 163, cm, 12/30/21 11:09:00 EDT, Height/Length Dosing, [...] Spasm, # 30 tab(s), Refills(s) 0, Pharmacy: [facility] #[id number], 167, cm, 05/09/23 8:15:00 EST, Height/Length Dosing, 145.6, kg, 05/09/23 8:15:00 EST, Weight Dosing Start Date: 05/09/23 Status: Ordered Start: 04-26-2023 take 1 tablet by manish th every eight hours as needed for muscle spasms tiZANidine 4 mg Tab 4 mg = 1 tab(s), Oral, q8hr, PRN Spasm, # 20 tab(s), Refills(s) 0, [facility]acy: [facility] #[id number], 167, cm, 04/26/23 11:10:00 EDT, Height/Length Dosing, [...] 28 tab(s), Refills(s) 0, Pharmacy: [facility] #[id number], 167.6, cm, 12/23/23 10:59:00 EDT, Height/Length Dosing, 136, kg, 12/23/23 10:59:00 EDT, Weight Dosing Start Date: 01/09/24 Status: Ordered Start: 11-25-2023 take 1 tablet by manish every six hours as needed for pain traMADOL 50 mg Tab 50 mg = 1 tab(s), Oral, q6hr, PRN for pain, # 28 tab(s), Refills(s) 0, Pharmacy: [facility] #[id number], 168, cm, 11/25/23 14:36:00 EDT, Height/Length Dosing, [...] 30 tab(s), Refills(s) 0, Pharmacy: [facility] #[id number], 168, cm, 10/11/23 14:32:00 EDT, Height/Length Dosing, 160.2, kg, 10/11/23 14:32:00 EDT, Weight Dosing Start Date: 10/11/23 Status: Ordered Start: 08-10-2023 take 1 tablet by manish once daily at bedtime traZODONE 50 mg Tab 50 mg = 1 tab(s), Oral, Once a day (at bedtime), # 30 tab(s), Refills(s) 0, Pharmacy: [facility] #[id number], 167, cm, 08/10/23 14:24:00 EST, Height/Length Dosing, 151.4, kg, 08/10/23 14:24:00 EST, Weight Dosing Start Date: 08/10/23 Status: Ordered Start: 10-20-2020 take 2 tablets by mo [facility] once daily at bedtime as needed traZODONE 150 mg Tab 300 mg = 2 tab(s), Oral, Once a day (at bedtime), PRN Insomnia, # 180 tab(s), Refills(s) 1, [facility]: [facility], 170, cm, 10/13/20 9:06:00 EDT, Height/Length Dosing, 153.3, kg, 10/13/20 9:06:00 EDT, Weight Dosing Start Date: 10/20/20 Status: Ordered take 1 tablet by manish th once daily as needed for sleep traZODone (DESYREL) 150 MG tablet Take 1 tablet by mouth nightly as needed for Sleep 0 Active take 2 tablets by mo [facility] once daily traZODone (DESYREL) 150 MG tablet [...] meals, # 60 tab(s), Refills(s) 4, [facility]: [facility] #[id number], 167.5, cm, 10/18/22 13:30:00 EDT, Height/Length Dosing, 147, kg, 10/18/22 13:30:00 EDT, Weight Dosing Start Date: 10/18/22 Status: Ordered Start: 10-18-2022 take 1 tablet by manish th once daily, then take 1 tablet by mouth twice daily, then take 2 tablets by mouth twice daily varenicline 0.5 mg oral tablet See Instructions, 1 po daily x3 days then 1 po BID x4 days. Follow this with 1 mg BID prescription varenicline, # 11 tab(s), Refills(s) 0, Pharmacy: [facility] #[id number], 167.5, cm, 10/18/22 13:30:00 EDT, Height/Length Dosing, 147, kg, 10/18/22 13:30:00 EDT, Weight Dosing Start Date: 10/18/22 Status: Ordered Completed/Discontinued Medications Medication Drug Class(es) Dates Sig (Normalized) Sig (Original) Bariatric transfer bench shower chair w/back rest (2 sources) Start: 01-28-2025 Bariatric transfer bench shower chair [...] hours, # 2 tab(s), Refills(s) 0, Pharmacy: [facility], 168, cm, 01/02/25 13:43:00 EDT, Height/Length [...] 1 EA, 0, Nebulizer Machine, [facility] #[id number], Supply, 168, cm, 10/11/23 14:32:00 EDT, Height/Length Dosing, 160.2, kg, 10/11/23 14:32:00 EDT, Weight Dosing Start Date: 10/11/23 Status: Ordered Quantity: 1.0 Unit: EA Repeat number: 1 Indications: Moderate persistent asthma, uncomplicated; Start: 10-11-2023 Nebulizer Mach ine Nebulizer Machine, See Instructions, 1 EA, 0, Nebulizer Machine, [facility] #[id number], Supply, 168, cm, 10/11/23 14:32:00 EDT, Height/Length Dosing, 160.2, kg, 10/11/23 14:32:00 EDT, Weight Dosing Start Date: 10/11/23 Status: Ordered Start: 10-02-2019 Nebulizer Mach ine Nebulizer Machine, See Instructions, 1 EA, 0, Nebulizer Machine, [facility] #16, Supply, 170, cm, 10/02/19 13:41:00 EDT, Height/Length Measured, 156, kg, 10/02/19 13:41:00 EDT, Weight Measured Start Date: 10/02/19 Status: Ordered Nebulizer Tubing and Mouthpiece Kit (20 sources) Start: 10-11-2023 Nebulizer Tubi ng and Mouthpiece Kit Nebulizer Tubing and Mouthpiece Kit, See Instructions, 1 kit(s), 0, Nebulizer Tubing and Mouthpiece Kit, [facility] #[id number], Supply, 168, cm, 10/11/23 14:32:00 EDT, Height/Length Dosing, 160.2, kg, 10/11/23 14:32:00 EDT, Weight Dosing Start Date: 10/11/23 Status: Ordered Quantity: 1.0 Unit: kit(s) Repeat number: 1 Indications: Moderate persistent asthma, uncomplicated; Start: 10-11-2023 Nebulizer Tubi ng and Mouthpiece Kit Nebulizer Tubing and Mouthpiece Kit, See Instructions, 1 kit(s), 0, Nebulizer Tubing and Mouthpiece Kit, [facility] #[id number], Supply, 168, cm, 10/11/23 14:32:00 EDT, Height/Length Dosing, 160.2, kg, 10/11/23 14:32:00 EDT, Weight Dosing Start Date: 10/11/23 Status: Ordered Start: 10-02-2019 Nebulizer Tubi ng and Mouthpiece Kit Nebulizer Tubing and Mouthpiece Kit, See Instructions, 1 kit(s), 0, Nebulizer Tubing and Mouthpiece Kit, [facility], Supply, 170, cm, 10/02/19 13:41:00 EDT, Height/Length Measured, 156, kg, 10/02/19 13:41:00 EDT, Weight Measured Start Date: 10/02/19 Status: Ordered polyethylene glycol 3350 012049 mg / potassium chloride 2970 mg / sodium bicarbonate 6740 mg / sodium chloride 5860 mg / sodium sulfate 51843 mg powder for oral solution (1 source) [...] Lasix, # 90 tab(s), Refills(s) 4, Pharmacy: [facility], 168, cm, 01/29/25 8:19:00 EDT, Height/Length [...] Lasix, # 90 tab(s), Refills(s) 1, Pharmacy: [facility] #[id number], 168, cm, 06/05/24 13:03:00 EST, Height/Length Dosing, [...] days, # 20 tab(s), Refills(s) 0, Pharmacy: [facility], 168, cm, 12/27/24 10:40:00 EDT, Height/Length [...] day, # 6 tab(s), Refills(s) 0, Pharmacy: [facility] #[id number], 167, cm, 04/26/23 11:10:00 EDT, Height/Length Dosing, [...] Cough, 1 EA, Refill(s) 1, [facility] #[id number], 163, cm, 12/30/21 11:09:00 EDT, Height/Length Dosing, 154, kg, 12/30/21 11:09:00 EDT, Weight Dosing Start Date: 04/13/22 Status: Ordered Start: 09-23-2020 take 2 puff(s) by in halation four times daily Ventolin HFA 90 mcg/inh Aerosol 2 puff(s), Inhalation, QID Cough, 1 EA, Refill(s) 0, [facility], 170, cm, 09/22/20 10:15:00 EDT, Height/Length Dosing, 155.5, kg, 09/22/20 10:15:00 EDT, Weight Dosing Start Date: 09/23/20 Status: Ordered Ventolin HFA 90 mcg/inh Aerosol-Adpt (20 sources) Start: 10-01-2022 take 1 dose by inhalation every six hours Ventolin HFA 90 mcg/inh Aerosol-Adpt 2 puff(s), Inhalation, q6hr for wheezing, 1 EA, Refill(s) 1, [facility] #[id number], 167, cm, 09/29/22 11:37:00 EDT, Height/Length Dosing, 149.2, kg, 09/29/22 11:37:00 EDT, Weight Dosing Start Date: 10/01/22 Status: Ordered Start: 07-23-2022 take 2 puff(s) by in halation every six hours for wheezing Ventolin HFA 90 mcg/inh Aerosol-Adpt 2 puff(s), Inhalation, q6hr for wheezing, 18 gram, Refill(s) 1, [facility] #[id number], 163, cm, 12/30/21 11:09:00 EDT, Height/Length Dosing, 154, kg, 12/30/21 11:09:00 EDT, Weight Dosing Start Date: 07/23/22 Status: Ordered Vitamin D3 5000 intl units oral capsule (20 sources) Start: 10-14-2022 take 1 capsule by mouth once daily at mealtime Vitamin D3 5000 intl units oral capsule 5,000 International_Unit = 1 cap(s), Oral, Daily, with food, # 100 cap(s), Refills(s) 1, Pharmacy: [facility] #[id number], 170, cm, 10/13/22 9:06:00 EDT, Height/Length Dosing, 149.2, kg, 09/29/22 11:37:00 EDT, Weight Dosing Start Date: 10/14/22 Status: Ordered Problems Active Problems Problem Classification Problem Date Documented Da te Episodic/Chronic Administrative/social admission (1 source) Patient encounter status; Translations: [Persons encountering health services in other specified circumstances] Onset: 5 Episodic Alcohol-related disorders (20 sources) Alcohol abuse; Translations: [...] Onset: 2 Chronic Diabetes mellitus without complication (13 sources) Type 2 diabetes mellitus; Translations: [Type [...] without psychotic features] Onset: 2 Chronic Mycoses (6 sources) Candidal paronychia ; Translations: [Candidiasis of [...] current use of drug therapy; 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] Onset: 3 Episodic Other [...] Onset: 4 Episodic Other lower respiratory disease (11 sources) Dyspnea on exertion 11-27-2024 Episodic Other [...] Care Team Attending Physician - Yocasta MSN, MASTER SCHEDULER-CERTIFIED CODERMyron Primary Care Physician - Yocasta MSN, MASTER SCHEDULER-Myron VILLATORO This Is Your Medications List buPROPion [...] Tuesday 1:00 PM EDT With: Yocasta SMITH, DARLEEN-Myron VILLATORO Where: [facility] [address] [address]- Tuesday 1:15 PM EDT With: Rick Hernandez PA-C Where: [facility] You Need to Schedule the Following Appointments Follow Up with Yocasta SMITH, DARLEEN-Myron VILLATORO When: In 1 month Comments: weight loss, initial 40 min Where: [address] [place] [id number] Medications What How Much When Why Instructions New buPROPion (buPROPion 150 mg/ 24 hours XL Tab) 1 Tablets By Mouth Every 24 hours Pickup at [facility] Unchanged albuterol (Albuterol (Eqv-Ventolin HFA) 90 [...] Moderate pe (more content not included)... Normal [facility] Family Medicine Office/Clini c Noteon 02-04-2025 [...] cigarettes, uncomplicated) (more content not included)... Normal [facility] Comment on above: Result Comment: Elec tronically Signed By: Yocasta MSN, Myron MUÑOZ CNP\.br\Date and Time Signed: 02/04/25 15:13 EDT Ambulatory Visit Summaryon 0 01-29-2025 Ambulatory Visit Summary Ambulatory Visit Summary CARMEN BLEDSOE :1960 Visit Date:01/29/2025 Ambulatory Visit Instructions Your Diagnosis Heart failure with preserved ejection fraction Benign hypertension Mixed hyperlipidemia Your Care Team Attending Physician - Rick Hernandez PA-C Primary Care Physician - Yocasta SMITH, Myron ESPINO Referring Physician - NONE, XXXX This Is [...] EDT With: Yocasta SMITH, Myron ESPINO Where: [facility] [place] [address] [place] [address]- Tuesday 1:15 PM EDT With: David LEONARD, Rick Giposn Where: [facility] Medications What How Much When Why Instructions [...] Tab) 1 (more content not included)... Normal [facility] Heart and Vascular Office/Cl inic Noteon 01-29-2025 [...] of per (more content not included)... Normal [facility] Comment on above: Result Comment: Elec tronically Signed By: Rick Hernandez PA-C\.br\Date and Time Signed: 01/29/25 10:10 EDT [facility] 01-29-20 [facility] Case Information Case Priority: None Programs: -- Referral Source: Team Manager Referral Reason: Care coordination Case Type: Transition Care Management Risk Score: -- Case Status: Enrolled (December 31, 2024) Date Assigned: December 31, 2024 Assigned By: Gracy Maxwell R.N. Date Enrolled: December 31, 2024 Assigned Primary Personnel: Gracy Maxwell R.N. Assigned Secondary Personnel: -- Case Physician: Yocasta MSN, MASTER SCHEDULER-CERTIFIED CODER, Myron Hamilton Problems Ongoing Alcohol abuse, in [...] See Instructions nystatin 100,000 units/mL Oral Susp, 886416 unit(s)= 5 mL, Oral-Swish&Swallow, QID nystatin Top [...] 12/31/24 09:55: (more content not included)... Normal [facility] BNPon 01-24-2025 Int Ctr BNP Pass Normal [facility] Comment on above: Performed By: #### 1 [id number] #### [facility] [address] [place] [address] Natriuretic peptide B (Bld) [Mass/Vol] 20 pg/mL Normal 5-80 [facility] Comment on above: Performed By: #### 1 [id number] #### [facility] [address] [place] [address] CBC w/ Auto Diffon 5 Basophil Absolute 0.2 E9/L Normal 0.0-0.2 [facility] Comment on above: Performed By: #### 2 [id number] #### [facility] [address] [place] [address] Basophils/100 WBC (Bld) 3.1 % High 0.0-2.0 [facility] Comment on above: Performed By: #### 2 [id number] #### [facility] [address] [place] [address] Eos Absolute 0.1 E9/L Normal 0.0-0.5 [facility] Comment on above: Performed By: #### 2 [id number] #### [facility] [address] [place] [address] Eosinophils/100 WBC (Bld) 2.7 % Normal 0.0-8.0 [facility] Comment on above: Performed By: #### 2 [id number] #### [facility] [address] [place] [address] Erythrocyte distribution width (RBC) [Ratio] 15.8 % High 10.9-14.2 [facility] Comment on above: Performed By: #### 2 [id number] #### [facility] [address] [place] [address] Hematocrit (Bld) [Volume fraction] 38.3 % Normal 34.0-46.0 [facility] Comment on above: Performed By: #### 2 [id number] #### [facility] [address] [place] [address] Hemoglobin (Bld) [Mass/Vol] 13.0 g/dL Normal 12.0-16.0 [facility] Comment on above: Performed By: #### 2 [id number] #### [facility] [address] [place] [address] Lymph Absolute 0.8 E9/L Low 1.0-4.0 [facility] Comment on above: Performed By: #### 2 677504 #### [facility] [address] [place] [address] Lymphocytes/100 WBC (Bld) 15.4 % Normal 14.0-50.0 [facility] Comment on above: Performed By: #### 2 538990 #### [facility] [address] [place] [address] MCH (RBC) [Entitic mass] 31.3 pg Normal 27.0-34.0 [facility] Comment on above: Performed By: #### 2 [id number] #### [facility] [address] [place] [address] MCHC (RBC) [Mass/Vol] 33.9 g/dL Normal 31.4-36.0 [facility] Comment on above: Performed By: #### 2 [id number] #### [facility] [address] [place] [address] MCV (RBC) [Entitic vol] 92.2 fL Normal 80.0-100.0 [facility] Comment on above: Performed By: #### 2 112852 #### [facility] [address] [place] [address] Canyon Absolute 0.4 E9/L Normal 0.2-1.0 [facility] Comment on above: Performed By: #### 2 [id number] #### [facility] [address] [place] [address] Monocytes/100 WBC (Bld) 7.3 % Normal 4.0-14.0 [facility] Comment on above: Performed By: #### 2 316687 #### [facility] [address] [place] [address] Neutro Absolute 3.6 E9/L Normal 2.0-7.5 [facility] Comment on above: Performed By: #### 2 146245 #### [facility] [address] [place] [address] Neutro Auto 71.5 % Normal 36.0-75.0 [facility] Comment on above: Performed By: #### 2 885676 #### [facility] [address] [place] [address] Platelet 243.0 E9/L Normal 150.0-500.0 [facility] Comment on above: Performed By: #### 2 599703 #### [facility] [address] [place] [address] Platelet mean volume (Bld) [Entitic vol] 7.2 fL Normal 6.4-10.8 [facility] Comment on above: Performed By: #### 2 554873 #### [facility] [address] [place] [address] RBC 4.2 E12/L Low 4.3-5.9 [facility] Comment on above: Performed By: #### 2 789306 #### [facility] [address] [place] [address] WBC 5.0 E9/L Normal 4.0-11.0 [facility] Comment on above: Performed By: #### 2 [id number] #### [facility] [address] [place] [address] CMPon 01-24-2025 Albumin [Mass/Vol] 4.3 g/dL Normal 3.3-5.0 [facility] Comment on above: Performed By: #### 2 [id number] #### [facility] [address] [place] [address] Albumin/Globulin [Mass ratio] 1.5 {ratio} Normal 1.1-2.2 [facility] Comment on above: Performed By: #### 2 439606 #### [facility] [address] [place] [address] Alk Phos 61 Int._Unit/L Normal 21-98 [facility] Comment on above: Performed By: #### 2 [id number] #### [facility] [address] [place] [address] ALT 28 Int._Unit/L Normal 6-46 [facility] Comment on above: Performed By: #### 2 938472 #### [facility] [address] [place] [address] Anion gap [Moles/Vol] 10 mmol/L Normal 6-16 [facility] Comment on above: Performed By: #### 2 712835 #### [facility] [address] [place] [address] AST 22 Int._Unit/L Normal 5-43 [facility] Comment on above: Performed By: #### 2 568197 #### [facility] [address] [place] [address] Bili Total 0.4 mg/dL Normal 0.0-1.1 [facility] Comment on above: Performed By: #### 2 729746 #### [facility] [address] [place] [address] BUN/Creat Ratio 20 No Units Normal 10-20 [facility] Comment on above: Performed By: #### 2 [id number] #### [facility] [address] [place] [address] Calcium [Mass/Vol] 9.3 mg/dL Normal 8.9-11.1 [facility] Comment on above: Performed By: #### 2 346029 #### [facility] [address] [place] [address] Chloride [Moles/Vol] 100 mmol/L Low 101-111 [facility] Comment on above: Performed By: #### 2 068173 #### [facility] [address] [place] [address] CO2 [Moles/Vol] 33 mmol/L High 21-31 [facility] Comment on above: Performed By: #### 2 070890 #### [facility] [address] [place] [address] Creatinine [Mass/Vol] 0.8 mg/dL Normal 0.5-1.3 [facility] Comment on above: Performed By: #### 2 184727 #### [facility] [address] [place] [address] Globulin (S) [Mass/Vol] 2.9 g/dL Normal 1.4-4.0 [facility] Comment on above: Performed By: #### 2 579706 #### [facility] [address] [place] [address] Glucose [Mass/Vol] 114 mg/dL Normal 55-199 [facility] Comment on above: Performed By: #### 2 599961 #### [facility] [address] [place] [address] Potassium [Moles/Vol] 3.7 mmol/L Normal 3.5-5.3 [facility] Comment on above: Performed By: #### 2 360476 #### [facility] [address] [place] [address] Protein [Mass/Vol] 7.2 g/dL Normal 6.0-7.8 [facility] Comment on above: Performed By: #### 2 547648 #### [facility] [address] [place] [address] Sodium [Moles/Vol] 139 mmol/L Normal 135-145 [facility] Comment on above: Performed By: #### 2 224624 #### [facility] [address] [place] [address] Urea nitrogen [Mass/Vol] 16 mg/dL Normal 5-21 [facility] Comment on above: Performed By: #### 2 149500 #### [facility] [address] [place] [address] CT Abdomen/Pelvis w/ Contras ton 01-24-2025 CT [...] Grider MD Transcribed by: KARSTEN Technologist: LAURA Magana [facility] ED Clinical Summaryon 2024 ED Clinical Summary ED Clinical Summary [place] [id number] ED Clinical Summary Person Information Name: CARMEN BLEDSOE/Reagan Age: 64 Years : 1960 Sex: Female Language: Stateless PCP: Yocasta MSN, MASTER SCHEDULER-CERTIFIED CODER, Myron Hamilton Marital Status: Single Visit Id: Visit Reason: [...] 01/24/2025 13:34:37 01/24/2025 13:34:37 01/24/2025 13:34:37 ADDRESS: [facility] [id number] PHYS DOC NOTES: MEDICAL INFORMATION: Prescriptions Given: New Medications [facility], [address], [place] [id number], [phone] acetaminophen-hydroco done ([place] 325 mg-5 mg oral tablet) 1 Tablets [...] Refills: 3. (more content not included)... Normal [facility] ED Note-Physicianon 01-25-20 ED Note-Physician ED [...] or rigidity noted. 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 Normal [facility] Comment on above: Result Comment: Elec tronically Signed By: Lui Christiansen PA-C\.br\Date and Time Signed: 01/24/25 16:12 EDT\.br\Electronically Co-Signed By: Oneal Newman DO\.br\Date and Time Co-Signed: 01/24/25 19:04 EDT ED Patient Summaryon 025 ED Patient Summary ED Patient Summary [place] [id number] Patient Discharge Instructions Person Information Name: CARMEN BLEDSOE Age: 64 Years Arrival Date: 01/24/2025 08:46:49 Discharge Diagnosis: COPD exacerbation; Laceration of left ear; Left hip pain; Low back pain; Multiple falls; Oral thrush; Osteoarthritis of hip; Shortness of breath Primary Care Physician: Yocasta MSN, MASTER SCHEDULER-CERTIFIED CODER, Myron Hamilton Provider Information Primary Provider: Advanced Machine Technician:Lui Christiansen PA-C The exam and treatment you received in the Emergency Department were for an urgent problem and are not intended as complete care. It is important that you follow up with a doctor, nurse practitioner, or physician???s design assistant for ongoing care. If your symptoms [...] Follow-up Instructions: With: Address: When: Myron Rust [address] [place] [phone] Episencial () In 3 days 01/27/2025 Comments: Please call primary care office for close outpatient follow-up regarding thrush, back and hip pain, COPD exacerbation. Take medication as prescribed. Return to ED if symptoms worsen or new symptoms arise. Please ambulate with assistance at home to prevent further falls. Return to ED if you have another fall. With: Address: When: [facility] [address] [place] [id number] [phone] Episencial () In 3 days 01/27/2025 Comments: Please call [...] opioids can be used to help relieve aloboate-kq-fioorv pain and are often prescribed following a [...] your prima (more content not included)... Normal [facility] PT & PTTon 01-24-2025 INR Coag (PPP) [Relative time] 1.00 {INR} Invalid Interpretation Code [facility] Comment on above: Result Comment: INR results are specifically intended to assess patients stabilized on long-term Anticoagulation therapy suggested INR???s ???Less Intensive Anticoagulation??? 2.0 ??? 3.0 Conventional Range 3.0 ??? 4.5 Performed By: #### 1 [id number] #### [facility] [facility] [address] [place] [address] PT 11.2 second(s) Normal 9.4-12.5 [facility] Comment on above: Result Comment: 15 d [...] the same coagulation reagent and instrumentation as [facility]. Currently there are no coagulation studies available worldwide for children to 14 days, and no normal ranges. Performed By: #### 1 [id number] #### [facility] [address] [place] [address] PTT 32.6 second(s) Normal 25.1-36.5 [facility] Comment on above: Result Comment: Para meter [...] the same coagulation reagent and instrumentation as [facility]. Currently there are no coagulation studies available worldwide for children to 14 days, and no normal ranges. Heparin therapeutic range (represented by Anti-Factor Xa activity of 0.2 - 0.4 U/mL) corresponds to PTT of 56.6 - 109.0 sec. Performed By: #### 1 [id number] #### [facility] [address] [place] [address] Troponin 0 Hr.on 01-24-2025 Troponin HS 4.50 pg/mL Low 10.10-27.10 [facility] Comment on above: Result Comment: The 95% CI (Confidence Interval) PPV (Positive Predictive Value) for myocardial infarction in females is 38 pg/mL, in males 51 pg/mL. The results should be used in conjunction with clinical conditions of myocardial infarction. (Access High Sensitivity Troponin I Instructions For Use, [employer], February 2018) Performed By: #### 1 [id number] #### [facility] [address] [place] [address] Troponin 1 Hr.on 01-24-2025 Troponin HS 3.90 pg/mL Low 10.10-27.10 [facility] Comment on above: Result Comment: The 95% CI (Confidence Interval) PPV (Positive Predictive Value) for myocardial infarction in females is 38 pg/mL, in males 51 pg/mL. The results should be used in conjunction with clinical conditions of myocardial infarction. (Access High Sensitivity Troponin I Instructions For Use, [employer], February 2018) Performed By: #### 1 [id number] #### [facility] [address] [place] [address] UA with Cult Rflxon 01-25-20 25 Color (U) Colorless Abnormal Yellow [facility] Comment on above: Result Comment: Micr oscopic readings are only performed on those samples that meet specific criteria set forth by [facility]. Performed By: #### 4 [id number] #### [facility] [address] [place] [address] Ketones Ql (U) Negative Normal Negative [facility] Comment on above: Performed By: #### 4 [id number] #### [facility] [address] [place] [address] UA Blood Negative Normal Negative [facility] Comment on above: Performed By: #### 4 [id number] #### [facility] [address] [place] [address] UA Clarity Clear Normal Clear [facility] Comment on above: Performed By: #### 4 [id number] #### [facility] [address] [place] [address] UA Glucose 3+ mg/dL Abnormal Negative [facility] Comment on above: Performed By: #### 4 [id number] #### [facility] [address] [place] [address] UA Leuk Est Negative Normal Negative [facility] Comment on above: Performed By: #### 4 [id number] #### [facility] [address] [place] [address] UA Nitrite Negative Normal Negative [facility] Comment on above: Performed By: #### 4 [id number] #### [facility] [address] [place] [address] UA pH 5.0 Invalid Interpretation Code 5.0-9.0 [facility] Comment on above: Performed By: #### 4 [id number] #### [facility] [address] [place] [address] UA Protein Negative Normal Negative [facility] Comment on above: Performed By: #### 4 [id number] #### [facility] [address] [place] [address] UA Spec Grav 1.016 Invalid Interpretation Code 1.005-1.030 [facility] Comment on above: Performed By: #### 4 [id number] #### [facility] [address] [place] [address] UA Urobilinogen Negative Normal Negative [facility] Comment on above: Performed By: #### 4 [id number] #### [facility] [address] [place] [address] Urobilinogen (U) [Mass/Vol] Negative Normal Negative [facility] Comment on above: Performed By: #### 4 [id number] #### [facility] [address] [place] [address] UA Spec Desc Clean Catch Normal [facility] Comment on above: Performed By: #### 4 [id number] #### [facility] [address] [place] [address] US Lower Extremity Venous Du plex Lefton [...] MD Transcribed by: KARSTEN Technologist: Marcos RUBIN [facility] XR Chest Single Viewon 01-24 XR [...] DO Transcribed by: KARSTEN Technologist: NICHOLAS Normal [facility] XR Hip 2-3 Views Left + [...] DO Transcribed by: KARSTEN Technologist: NICHOLAS Normal [facility] eGFRon 01-24-2025 eGFR 83 mL/min/1.73 m2 Normal >=59 [facility] Comment on above: Performed By: #### 1 [id number] #### [facility] [address] [place] [address] Reminderson 01-21-2025 Reminders Reminders From: Gracy Maxwell R.N. To: [facility] Return Clerk; Gracy Maxwell R.N.; Sent: 01/21/2025 12:29:37 EDT Show up: 01/21/2025 12:29:00 EDT Subject: tcm #2 final Due Date/Time: 01/28/2025 12:29:00 EDT Reminder/Recall Normal [facility] Pulmonary Function Studieson 01-16-2025 Pulmonary Function [...] BY: Javier Hall M.D. ca Dictated: 01/12/2025 [id number] Transcribed: 01/15/2025 cc:CARLO Atkinson [facility] Comment on above: Result Comment: Elec [...] Myron ESPINO This Is Your Medications List nicotine (nicotine [...] EDT With: Yocasta SMITH, Myron ESPINO Where: [address] [address]- You Need to Schedule the Following Appointments Follow Up with Yocasta SMITH, Myron ESPINO When: In 1 month Where: [address] [place] [phone] Medications What How Much When Why Instructions New nicotine (nicotine 21 mg/ 24 hr Transderm ER Film) 1 Patches Topical Every 24 hours Duration: 21 Days wear only one patch at a time, for 24 hours only Pickup at [facility] Unchanged albuterol (Albuterol (Eqv-Ventolin HFA) 90 [...] morbid obes (more content not included)... Normal [facility] CHEMISTRYOrdered By: Felicity Marin on 01-02-2025 [...] (abnormal relaxation pattern). [1] List of Providers Inserter: Rick Hernandez PA-C Twx Operator: Dr Phillip Orthopaedics: Dr Martinez LABS Cr/eGFR: [...] Appt. Date: 01/07/2025 12:30 PM Scheduled Provider: [facility] Pulmonary Function Lab Phone: -- Fax: -- [...] further complications. 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 Normal [facility] Comment on above: Result Comment: Elec tronically Signed By: Yocasta SMITH, MASTER SCHEDULER- CERTIFIED CODER, Myron Hamilton\.br\Date and Time Signed: 01/02/25 15:41 EDT U MA/Cr Ratioon 01-02-2025 Microalb/Cr Ratio NOT CALCULATED Invalid Interpretation Code .0-30.0 [facility] Comment on above: Result Comment: 30-3 00 mg/g Cr indicates an increased risk for diabetic nephropathy. >300 mg/g Cr is consistent with clinical nephropathy. Performed By: #### 1 [id number] #### [facility] [address] [place] [address] U Creatinine 17.8 mg/dL Invalid Interpretation Code [facility] Comment on above: Performed By: #### 1 [id number] #### [facility] [address] [place] [address] U Microalb <0.7 Normal 0.0-1.9 [facility] Comment on above: Performed By: #### 1 [id number] #### [facility] [address] [place] [address] Heart and Vascular Office/Cl inbuddy Noteon 01-01-2025 Heart and Vascular Office/Clinic Note [...] swelling, but (more content not included)... Normal [facility] Comment on above: Result Comment: Elec tronically Signed By: David LEONARD, Rick Gipson\.hardik\Date and Time Signed: 01/01/25 14:28 EDT [facility] 01-01-20 [facility] Case Information Case Priority: None Programs: -- Referral Source: Team Manager Referral Reason: Care coordination Case Type: Transition Care Management Risk Score: -- Case Status: Enrolled (December 31, 2024) Date Assigned: December 31, 2024 Assigned By: Gracy Maxwell R.N. Date Enrolled: December 31, 2024 Assigned Primary Personnel: Gracy Maxwell R.N. Assigned Secondary Personnel: -- Case Physician: Yocasta MSN, MASTER SCHEDULER-CERTIFIED CODER, Myron Hamilton Problems Ongoing Alcohol abuse, in [...] and Intervention (more content not included)... Normal [facility] Coding Queryon 12-30-2024 Coding Query Coding Query From: Catarino Wood RN To: Abisai Kaur III, DO; Sent: 12/28/2024 06:54:34 EDT ! Subject: Coding Query Due Date/Time: 12/29/2024 06:53:00 EDT Caller Name: CARMEN BLEDSOE; Caller Number: Cuca , M Clinical evidence indicates that this patient has [...] remission From: Abisai Kaur III, DO To: Close RN, Catarino Gipson; Sent: 12/30/2024 13:50:00 EDT Subject: RE: Coding Query Caller Name: CARMEN BLEDSOE; Caller Number: Cuca , M Normal [facility] BMPon 12-29-2024 Anion gap [Moles/Vol] 10 mmol/L Normal 6-16 [facility] Comment on above: Performed By: #### 2 [id number] #### [facility] [address] [place] [address] BUN/Creat Ratio 30 No Units High 10-20 [facility] Comment on above: Performed By: #### 2 [id number] #### [facility] [address] [place] [address] Calcium [Mass/Vol] 9.1 mg/dL Normal 8.9-11.1 [facility] Comment on above: Performed By: #### 2 [id number] #### [facility] [address] [place] [address] Chloride [Moles/Vol] 98 mmol/L Low 101-111 [facility] Comment on above: Performed By: #### 2 [id number] #### [facility] [address] [place] [address] CO2 [Moles/Vol] 31 mmol/L Normal 21-31 [facility] Comment on above: Performed By: #### 2 [id number] #### [facility] [address] [place] [address] Creatinine [Mass/Vol] 0.7 mg/dL Normal 0.5-1.3 [facility] Comment on above: Performed By: #### 2 [id number] #### [facility] [address] [place] [address] Glucose [Mass/Vol] 185 mg/dL Normal 55-199 [facility] Comment on above: Performed By: #### 2 [id number] #### [facility] [address] [place] [address] Potassium [Moles/Vol] 4.2 mmol/L Normal 3.5-5.3 [facility] Comment on above: Performed By: #### 2 [id number] #### [facility] [address] [place] [address] Sodium [Moles/Vol] 135 mmol/L Normal 135-145 [facility] Comment on above: Performed By: #### 2 [id number] #### [facility] [address] [place] [address] Urea nitrogen [Mass/Vol] 21 mg/dL Normal 5-21 [facility] Comment on above: Performed By: #### 2 [id number] #### [facility] [address] [place] [address] CBC w/ Auto Diffon 5 Basophil Absolute 0.1 E9/L Normal 0.0-0.2 [facility] Comment on above: Performed By: #### 2 [id number] #### [facility] [address] [place] [address] Basophils/100 WBC (Bld) 0.6 % Normal 0.0-2.0 [facility] Comment on above: Performed By: #### 2 [id number] #### [facility] [address] [place] [address] Eos Absolute 0.0 E9/L Normal 0.0-0.5 [facility] Comment on above: Performed By: #### 2 [id number] #### [facility] [address] [place] [address] Eosinophils/100 WBC (Bld) 0.0 % Normal 0.0-8.0 [facility] Comment on above: Performed By: #### 2 [id number] #### [facility] [address] [place] [address] Erythrocyte distribution width (RBC) [Ratio] 15.6 % High 10.9-14.2 [facility] Comment on above: Performed By: #### 2 [id number] #### [facility] [address] [place] [address] Hematocrit (Bld) [Volume fraction] 39.3 % Normal 34.0-46.0 [facility] Comment on above: Performed By: #### 2 [id number] #### [facility] [address] [place] [address] Hemoglobin (Bld) [Mass/Vol] 13.0 g/dL Normal 12.0-16.0 [facility] Comment on above: Performed By: #### 2 [id number] #### [facility] [address] [place] [address] Lymph Absolute 0.6 E9/L Low 1.0-4.0 [facility] Comment on above: Performed By: #### 2 [id number] #### [facility] [address] [place] [address] Lymphocytes/100 WBC (Bld) 6.3 % Low 14.0-50.0 [facility] Comment on above: Performed By: #### 2 [id number] #### [facility] [address] [place] [address] MCH (RBC) [Entitic mass] 30.4 pg Normal 27.0-34.0 [facility] Comment on above: Performed By: #### 2 [id number] #### [facility] [address] [place] [address] MCHC (RBC) [Mass/Vol] 33.2 g/dL Normal 31.4-36.0 [facility] Comment on above: Performed By: #### 2 [id number] #### [facility] [address] [place] [address] MCV (RBC) [Entitic vol] 91.6 fL Normal 80.0-100.0 [facility] Comment on above: Performed By: #### 2 [id number] #### [facility] [address] [place] [address] Canyon Absolute 0.5 E9/L Normal 0.2-1.0 [facility] Comment on above: Performed By: #### 2 [id number] #### [facility] [address] [place] [address] Monocytes/100 WBC (Bld) 5.0 % Normal 4.0-14.0 [facility] Comment on above: Performed By: #### 2 [id number] #### [facility] [address] [place] [address] Neutro Absolute 8.3 E9/L High 2.0-7.5 [facility] Comment on above: Performed By: #### 2 [id number] #### [facility] [address] [place] [address] Neutro Auto 88.1 % High 36.0-75.0 [facility] Comment on above: Performed By: #### 2 [id number] #### [facility] [address] [place] [address] Platelet 286.0 E9/L Normal 150.0-500.0 [facility] Comment on above: Performed By: #### 2 [id number] #### [facility] [address] [place] [address] Platelet mean volume (Bld) [Entitic vol] 7.3 fL Normal 6.4-10.8 [facility] Comment on above: Performed By: #### 2 [id number] #### [facility] [address] [place] [address] RBC 4.3 E12/L Normal 4.3-5.9 [facility] Comment on above: Performed By: #### 2 [id number] #### [facility] [address] [place] [address] WBC 9.4 E9/L Normal 4.0-11.0 [facility] Comment on above: Performed By: #### 2 [id number] #### [facility] [address] [place] [address] CHEMISTRYOrdered By: Lab ROP User on 12-29-2024 Glucose [Mass/Vol] 200 mg/dL High 55 - 99 mg/dL [facility] C POC Subsection Comment on above: Result Comment: Loraine peralta RN/ POC Username JUSTYNA BARNES Invalid Interpretation Code [facility] POC Subsection Sodium [Moles/Vol] [id number] mmol/L Invalid Interpretation Code [facility] POC Subsection Sodium [Moles/Vol] [id number] mmol/L Invalid Interpretation Code [facility] POC Subsection Glucose [Mass/Vol] 166 mg/dL High 55 - 99 mg/dL [facility] POC Subsection Comment on above: Result Comment: Loraine peralta RN/ POC Username HAYDEN MAYERS Invalid Interpretation Code [facility] POC Subsection Sodium [Moles/Vol] [id number] mmol/L Invalid Interpretation Code [facility] POC Subsection Sodium [Moles/Vol] [id number] mmol/L Invalid Interpretation Code [facility] POC Subsection CHEMISTRYOrdered By: SYSTEM SYSTEM on [...] 12-03 Glucose [Mass/Vol] 200 mg/dL High 55-99 [facility] Comment on above: Result Comment: Loraine GODOY Performed By: #### 2 [id number] #### [facility] [address] [place] [address] Glucose [Mass/Vol] 166 mg/dL High 55-99 [facility] Comment on above: Result Comment: Loraine GODOY Performed By: #### 2 [id number] #### [facility] [address] [place] [address] HEMATOLOGYOrdered By: SYSTEM SYSTEM on 12-29-2024 Basophils/100 [...] night. 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 May discuss adding Entresto or Losartan as outpatient too to help with your heart failure. 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 as Scheduled January 01 When: Follow Up with Myron Rust When: Within 7 to 10 days Comments: Call for followup appointment Where: [place] [address] [phone] Business (1) Medications What How Much When Why Instructions Next Dose New azithromycin (azithromycin 250 mg Tab) 1 Tablets By Mouth Every day COPD with acute exacerbation Duration: 3 Days Pickup at [facility] New predniSONE (predniSONE 10 mg Tab) 1 Tablets By Mouth As Directed COPD with acute exacerbation 4 tabs for 2 days,3 tabs for 2 days,2 tabs for 2 days,1 tab for 2 days Pickup at [facility] Changed cephalexin (cephalexin 500 mg Cap) 1 Capsules By Mouth 4 times a day Cellulitis of leg Duration: 8 Days Pickup at [facility] Changed furosemide (furosemide 40 mg Tab) 1 Tablets By Mouth 2 times a day Peripheral edema Acute on chronic heart failure with preserved ejection fraction Pickup at [facility] Unchanged albuterol (Albuterol (Eqv-Ventolin HFA) 90 mcg/ inh inhalation aerosol) 2 Puffs Inhalation Every 6 hours as needed for Shortness of breath or wheezing COPD with acute exacerbation Pickup at [facility] Unchanged aripiprazole (Abilify 5 mg Tab) [...] and P (more content not included)... Normal [facility] eGFRon 12-29-2024 eGFR 98 mL/min/1.73 m2 Normal >=59 [facility] Comment on above: Performed By: #### 1 [id number] #### [facility] [address] [place] [address] CBC w/ Auto Diffon 12-28- 5 Basophil Absolute 0.1 E9/L Normal 0.0-0.2 [facility] Comment on above: Performed By: #### 2 [id number] #### [facility] [address] [place] [address] Basophils/100 WBC (Bld) 1.6 % Normal 0.0-2.0 [facility] Comment on above: Performed By: #### 2 [id number] #### [facility] [address] [place] [address] Eos Absolute 0.0 E9/L Normal 0.0-0.5 [facility] Comment on above: Performed By: #### 2 [id number] #### [facility] [address] [place] [address] Eosinophils/100 WBC (Bld) 0.1 % Normal 0.0-8.0 [facility] Comment on above: Performed By: #### 2 [id number] #### [facility] [address] [place] [address] Erythrocyte distribution width (RBC) [Ratio] 15.7 % High 10.9-14.2 [facility] Comment on above: Performed By: #### 2 [id number] #### [facility] [address] [place] [address] Hematocrit (Bld) [Volume fraction] 40.0 % Normal 34.0-46.0 [facility] Comment on above: Performed By: #### 2 [id number] #### [facility] [address] [place] [address] Hemoglobin (Bld) [Mass/Vol] 13.7 g/dL Normal 12.0-16.0 [facility] Comment on above: Performed By: #### 2 [id number] #### [facility] [address] [place] [address] Lymph Absolute 0.4 E9/L Low 1.0-4.0 [facility] Comment on above: Performed By: #### 2 [id number] #### [facility] [address] [place] [address] Lymphocytes/100 WBC (Bld) 4.8 % Low 14.0-50.0 [facility] Comment on above: Performed By: #### 2 [id number] #### [facility] [address] [place] [address] MCH (RBC) [Entitic mass] 31.4 pg Normal 27.0-34.0 [facility] Comment on above: Performed By: #### 2 [id number] #### [facility] [address] [place] [address] MCHC (RBC) [Mass/Vol] 34.3 g/dL Normal 31.4-36.0 [facility] Comment on above: Performed By: #### 2 [id number] #### [facility] [address] [place] [address] MCV (RBC) [Entitic vol] 91.7 fL Normal 80.0-100.0 [facility] Comment on above: Performed By: #### 2 [id number] #### [facility] [address] [place] [address] Canyon Absolute 0.1 E9/L Low 0.2-1.0 [facility] Comment on above: Performed By: #### 2 [id number] #### [facility] [address] [place] [address] Monocytes/100 WBC (Bld) 1.8 % Low 4.0-14.0 [facility] Comment on above: Performed By: #### 2 [id number] #### [facility] [address] [place] [address] Neutro Absolute 7.4 E9/L Normal 2.0-7.5 [facility] Comment on above: Performed By: #### 2 [id number] #### [facility] [address] [place] [address] Neutro Auto 91.7 % High 36.0-75.0 [facility] Comment on above: Performed By: #### 2 [id number] #### [facility] [address] [place] [address] Platelet 274.0 E9/L Normal 150.0-500.0 [facility] Comment on above: Performed By: #### 2 [id number] #### [facility] [address] [place] [address] Platelet mean volume (Bld) [Entitic vol] 7.4 fL Normal 6.4-10.8 [facility] Comment on above: Performed By: #### 2 [id number] #### [facility] [address] [place] [address] RBC 4.4 E12/L Normal 4.3-5.9 [facility] Comment on above: Performed By: #### 2 [id number] #### [facility] [address] [place] [address] WBC 8.1 E9/L Normal 4.0-11.0 [facility] Comment on above: Performed By: #### 2 [id number] #### [facility] [address] [place] [address] CHEMISTRYOrdered By: Lab ROP User on 12-28-2024 Glucose [Mass/Vol] 217 mg/dL High 55 - 99 mg/dL [facility] C POC Subsection Comment on above: Result Comment: Loraine peralta RN/ POC Username HAYDEN MAYERS Invalid Interpretation Code [facility] POC Subsection Sodium [Moles/Vol] [id number] mmol/L Invalid Interpretation Code [facility] POC Subsection Sodium [Moles/Vol] [id number] mmol/L Invalid Interpretation Code [facility] POC Subsection CHEMISTRYOrdered By: SYSTEM SYSTEM on [...] 12-28-2024 Albumin [Mass/Vol] 4.5 g/dL Normal 3.3-5.0 [facility] Comment on above: Performed By: #### 2 [id number] #### [facility] [address] [place] [address] Albumin/Globulin [Mass ratio] 1.4 {ratio} Normal 1.1-2.2 [facility] Comment on above: Performed By: #### 2 [id number] #### [facility] [address] [place] [address] Alk Phos 62 Int._Unit/L Normal 21-98 [facility] Comment on above: Performed By: #### 2 [id number] #### [facility] [address] [place] [address] ALT 24 Int._Unit/L Normal 6-46 [facility] Comment on above: Performed By: #### 2 [id number] #### [facility] [address] [place] [address] Anion gap [Moles/Vol] 14 mmol/L Normal 6-16 [facility] Comment on above: Performed By: #### 2 536956 #### [facility] Laboratory [address] [place] [address] AST 20 Int._Unit/L Normal 5-43 [facility] Comment on above: Performed By: #### 2 [id number] #### [facility] Laboratory [address] [place] [address] Bili Total 0.4 mg/dL Normal 0.0-1.1 [facility] Comment on above: Performed By: #### 2 [id number] #### [facility] [address] [place] [address] BUN/Creat Ratio 20 No Units Normal 10-20 [facility] Comment on above: Performed By: #### 2 [id number] #### [facility] [address] [place] [address] Calcium [Mass/Vol] 9.2 mg/dL Normal 8.9-11.1 [facility] Comment on above: Performed By: #### 2 [id number] #### [facility] [address] [place] [address] Chloride [Moles/Vol] 97 mmol/L Low 101-111 [facility] Comment on above: Performed By: #### 2 [id number] #### [facility] [address] [place] [address] CO2 [Moles/Vol] 28 mmol/L Normal 21-31 [facility] Comment on above: Performed By: #### 2 [id number] #### [facility] [address] [place] [address] Creatinine [Mass/Vol] 0.7 mg/dL Normal 0.5-1.3 [facility] Comment on above: Performed By: #### 2 [id number] #### [facility] [address] [place] [address] Globulin (S) [Mass/Vol] 3.3 g/dL Normal 1.4-4.0 [facility] Comment on above: Performed By: #### 2 [id number] #### [facility] [address] [place] [address] Glucose [Mass/Vol] 157 mg/dL Normal 55-199 [facility] Comment on above: Performed By: #### 2 [id number] #### [facility] [address] [place] [address] Potassium [Moles/Vol] 4.0 mmol/L Normal 3.5-5.3 [facility] Comment on above: Performed By: #### 2 [id number] #### [facility] [address] [place] [address] Protein [Mass/Vol] 7.8 g/dL Normal 6.0-7.8 [facility] Comment on above: Performed By: #### 2 [id number] #### [facility] [address] [place] [address] Sodium [Moles/Vol] 135 mmol/L Normal 135-145 [facility] Comment on above: Performed By: #### 2 [id number] #### [facility] [address] [place] [address] Urea nitrogen [Mass/Vol] 14 mg/dL Normal 5-21 [facility] Comment on above: Performed By: #### 2 [id number] #### [facility] [address] [place] [address] Capillary Glucose POCon 06-2 7-2025 Glucose [Mass/Vol] 217 mg/dL High 55-99 [facility] Comment on above: Result Comment: Loraine GODOY Performed By: #### 2 [id number] #### [facility] [address] [place] [address] Glucose [Mass/Vol] 193 mg/dL High 55-99 [facility] Comment on above: Result Comment: Loraine GODOY Performed By: #### 2 [id number] #### [facility] [address] [place] [address] Glucose [Mass/Vol] 162 mg/dL High 55-99 [facility] Comment on above: Result Comment: Loraine GODOY Performed By: #### 2 [id number] #### [facility] [address] [place] [address] Glucose [Mass/Vol] 154 mg/dL High 55-99 [facility] Comment on above: Result Comment: Loraine GODOY Performed By: #### 2 [id number] #### [facility] [address] [place] [address] Coding Queryon 12-28-2024 Coding Query Coding Query From: Catarino Wood RN To: Abisai Kaur III, DO; Sent: 12/28/2024 06:54:34 EDT ! Subject: Coding Query Due Date/Time: 12/29/2024 06:53:00 EDT Caller Name: CARMEN BLEDSOE; Caller Number: Cuca , M Clinical evidence indicates that this patient has [...] desired or expected. Thank you![email or web address] [phone] Normal [facility] HEMATOLOGYOrdered By: SYSTEM SYSTEM on 12-28-2024 [...] Janak e Manageron 12-28-2024 Interdisciplinary Note - Sales Development Director Interdisciplinary Note - Sales Development Director CRM to room 321 Patient is awake, alert and oriented. Patient is from home lives with her Brother. Patient neighbor is her ride at [place]. Patient PLOF is independent in self care. She does not use DME but does have cane and walker. Patient verified her DME, PCP and insurance. Patient is an inpatient. Patient came in with CP, SOB Swelling. Patient has h/o CHF. Patient is assigned to john Campos notes. Patient was on oxygen but has been weaned to RA. Patient declined any concerns to return home. Patient declined any needs for DME, HH or Paramed. Patient was provided CRM contact, white board updated. CRM following CRM will get updates at 10 AM huddle with hospitalists ECHO today Possible weekend DC Normal [facility] Comment on above: Result Comment: Elec tronically Signed By: Clara Gold\.hardik\Date and Time Signed: 12/28/24 12:02 EDT Interdisciplinary Note - Sales Development Director Interdisciplinary Note - Sales Development Director CRM to room 321 Patient is awake, [...] has h/o CHF. Patient is assigned to john Campos notes. Patient was on oxygen but has been weaned to RA. Patient declined any concerns to return home. Patient declined any needs for DME, HH or Paramed. Patient was provided CRM contact, white board updated. CRM following CRM will get updates at 10 AM hudmay with hospitalists Marcos [facility] Comment on above: Result Comment: Elec tronically Signed By: Clara Gold\.br\Date and Time Signed: 12/28/24 08:39 EDT US Lower Extremity Venous Du plex Bilateralon 12-28-2024 US Lower Extremity Venous Duplex Bilateral Exam Date/Time: [...] BILATERAL leg proximal deep veins as below. Darlign scale with compression maneuvers of the peroneal [...] Sathya Christianson MD Transcribed by: KARSTEN Technologist: RENATA Normal [facility] eGFRon 12-28-2024 eGFR 98 mL/min/1.73 m2 Normal >=59 [facility] Comment on above: Performed By: #### 1 [id number] #### [facility] [address] [place] [address] BMPon 12-27-2024 Anion gap [Moles/Vol] 12 mmol/L Normal 6-16 [facility] Comment on above: Performed By: #### 2 [id number] #### [facility] [address] [place] [address] BUN/Creat Ratio 18 No Units Normal 10-20 [facility] Comment on above: Performed By: #### 2 [id number] #### [facility] [address] [place] [address] Calcium [Mass/Vol] 8.9 mg/dL Normal 8.9-11.1 [facility] Comment on above: Performed By: #### 2 [id number] #### [facility] [address] [place] [address] Chloride [Moles/Vol] 100 mmol/L Low 101-111 [facility] Comment on above: Performed By: #### 2 [id number] #### [facility] [address] [place] [address] CO2 [Moles/Vol] 27 mmol/L Normal 21-31 [facility] Comment on above: Performed By: #### 2 [id number] #### [facility] [address] [place] [address] Creatinine [Mass/Vol] 0.8 mg/dL Normal 0.5-1.3 [facility] Comment on above: Performed By: #### 2 [id number] #### [facility] [address] [place] [address] Glucose [Mass/Vol] 147 mg/dL Normal 55-199 [facility] Comment on above: Performed By: #### 2 [id number] #### [facility] [address] [place] [address] Potassium [Moles/Vol] 3.9 mmol/L Normal 3.5-5.3 [facility] Comment on above: Performed By: #### 2 [id number] #### [facility] [address] [place] [address] Sodium [Moles/Vol] 135 mmol/L Normal 135-145 [facility] Comment on above: Performed By: #### 2 [id number] #### [facility] [address] [place] [address] Urea nitrogen [Mass/Vol] 14 mg/dL Normal 5-21 [facility] Comment on above: Performed By: #### 2 [id number] #### [facility] [address] [place] [address] BNPon 12-27-2024 Int Ctr BNP Pass Normal [facility] Comment on above: Performed By: #### 1 [id number] #### [facility] [address] [place] [address] Natriuretic peptide B (Bld) [Mass/Vol] 20 pg/mL Normal 5-80 [facility] Comment on above: Performed By: #### 1 [id number] #### [facility] [address] [place] [address] CBC w/ Auto Diffon 5 Basophil Absolute 0.1 E9/L Normal 0.0-0.2 [facility] Comment on above: Performed By: #### 2 [id number] #### [facility] [address] [place] [address] Basophils/100 WBC (Bld) 0.8 % Normal 0.0-2.0 [facility] Comment on above: Performed By: #### 2 [id number] #### [facility] [address] [place] [address] Eos Absolute 0.1 E9/L Normal 0.0-0.5 [facility] Comment on above: Performed By: #### 2 [id number] #### [facility] [address] [place] [address] Eosinophils/100 WBC (Bld) 1.0 % Normal 0.0-8.0 [facility] Comment on above: Performed By: #### 2 240394 #### [facility] [address] [place] [address] Erythrocyte distribution width (RBC) [Ratio] 15.6 % High 10.9-14.2 [facility] Comment on above: Performed By: #### 2 [id number] #### [facility] [address] [place] [address] Hematocrit (Bld) [Volume fraction] 37.2 % Normal 34.0-46.0 [facility] Comment on above: Performed By: #### 2 [id number] #### [facility] [address] [place] [address] Hemoglobin (Bld) [Mass/Vol] 13.2 g/dL Normal 12.0-16.0 [facility] Comment on above: Performed By: #### 2 [id number] #### [facility] [address] [place] [address] Lymph Absolute 0.9 E9/L Low 1.0-4.0 [facility] Comment on above: Performed By: #### 2 [id number] #### [facility] [address] [place] [address] Lymphocytes/100 WBC (Bld) 12.1 % Low 14.0-50.0 [facility] Comment on above: Performed By: #### 2 [id number] #### [facility] [address] [place] [address] MCH (RBC) [Entitic mass] 32.2 pg Normal 27.0-34.0 [facility] Comment on above: Performed By: #### 2 [id number] #### [facility] [address] [place] [address] MCHC (RBC) [Mass/Vol] 35.5 g/dL Normal 31.4-36.0 [facility] Comment on above: Performed By: #### 2 [id number] #### [facility] [address] [place] [address] MCV (RBC) [Entitic vol] 90.8 fL Normal 80.0-100.0 [facility] Comment on above: Performed By: #### 2 [id number] #### [facility] [address] [place] [address] Canyon Absolute 0.4 E9/L Normal 0.2-1.0 [facility] Comment on above: Performed By: #### 2 [id number] #### [facility] [address] [place] [address] Monocytes/100 WBC (Bld) 5.3 % Normal 4.0-14.0 [facility] Comment on above: Performed By: #### 2 130805 #### [facility] [address] [place] [address] Neutro Absolute 5.8 E9/L Normal 2.0-7.5 [facility] Comment on above: Performed By: #### 2 [id number] #### [facility] [address] [place] [address] Neutro Auto 80.8 % High 36.0-75.0 [facility] Comment on above: Performed By: #### 2 [id number] #### [facility] [address] [place] [address] Platelet 240.0 E9/L Normal 150.0-500.0 [facility] Comment on above: Performed By: #### 2 [id number] #### [facility] [address] [place] [address] Platelet mean volume (Bld) [Entitic vol] 7.2 fL Normal 6.4-10.8 [facility] Comment on above: Performed By: #### 2 [id number] #### [facility] [address] [place] [address] RBC 4.1 E12/L Low 4.3-5.9 [facility] Comment on above: Performed By: #### 2 [id number] #### [facility] [address] [place] [address] WBC 7.2 E9/L Normal 4.0-11.0 [facility] Comment on above: Performed By: #### 2 [id number] #### [facility] [address] [place] [address] CHEMISTRYOrdered By: SYSTEM SYSTEM on 12-27-2024 Troponin [...] High Sensitivity Troponin I Instructions For Use, [employer], February 2018) Troponin HS 28.80 pg/mL High 10.10 - 27.10 pg/mL [facility] Comment on above: Interpretive Data: T he 95% CI (Confidence Interval) PPV (Positive Predictive Value) for myocardial infarction in females is 38 pg/mL, in males 51 pg/mL. The results should be used in conjunction with clinical conditions of myocardial infarction. (Access High Sensitivity Troponin I Instructions For Use, [employer], February 2018) Troponin HS 28.80 pg/mL High 10.10 - 27.10 pg/mL [facility] Comment on above: Interpretive Data: T he 95% CI (Confidence Interval) PPV (Positive Predictive Value) for myocardial infarction in females is 38 pg/mL, in males 51 pg/mL. The results should be used in conjunction with clinical conditions of myocardial infarction. (Access High Sensitivity Troponin I Instructions For Use, [employer], February 2018) Albumin [Mass/Vol] 4.3 g/dL Normal [...] 20 pg/mL Normal 5 - 80 pg/mL [facility] COAGULATIONOrdered By: Liv John on 12-27-2024 aPTT Coag (PPP) [Time] 31.4 s Normal 25.1 - 36.5 second(s) [facility] Comment on above: Interpretive Data: Tracy turcios 15 days - 4 weeks 1 - [...] the same coagulation reagent and instrumentation as [facility]. Currently there are no coagulation studies available worldwide for children to 14 days, and no normal ranges. Heparin therapeutic range (represented by Anti-Factor Xa activity of 0.2 - 0.4 U/mL) corresponds to PTT of 56.6 - 109.0 sec. INR Coag (PPP) [Relative time] 0.96 {INR} Invalid Interpretation Code [facility] Comment on above: Interpretive Data: I NR results are specifically intended to assess patients stabilized on long-term Anticoagulation therapy suggested INR s Less Intensive Anticoagulation 2.0 3.0 Conventional Range 3.0 4.5 PT Coag (PPP) [Time] 10.7 s Normal 9.4 - 1 2.5 second(s) [facility] Comment on above: Interpretive Data: 1 5 days - 4 weeks 1 - 5 months 6 -11 months 1-5 years 6-10 years 11 -17 years Mean: 11.2 (9.5-12.6) Mean: 11.0 (9.7-12.8) Mean: 11.0 (9.8-13.0) Mean: 11.3 (9.9-13.4) Mean: 11.7 (10.0-14.6) Mean: 11.8 (10.0 - 14.1) Pediatric Reference ranges were obtained from a study by flor Cruz al. prepared from 1437 samples obtained at 7 different centers using the same coagulation reagent and instrumentation as [facility]. Currently there are no coagulation studies available worldwide for children to 14 days, and no normal ranges. Capillary Glucose POCon 12-03 Glucose [Mass/Vol] 157 mg/dL High 55-99 [facility] Comment on above: Result Comment: Loraine GODOY Performed By: #### 2 [id number] #### [facility] [address] [place] [address] Glucose [Mass/Vol] 87 mg/dL Normal 55-99 [facility] Comment on above: Result Comment: Loraine GODOY Performed By: #### 2 [id number] #### [facility] [address] [place] [address] ED Clinical Summaryon 2024 ED Clinical Summary ED Clinical Summary [address] [address] ED Clinical Summary Person Information Name: CARMEN BLEDSOE/New_[place] Age: 64 Years : 1960 Sex: Female Language: Stateless PCP: Yocasta SMITH, MASTER SCHEDULER-IRVING, Myron Hamilton Marital Status: Single Visit Id: Visit Reason: Wheezing; Shortness of breath; Edema; cp, sob, swelled feet and legs Speciality: Acuity: 2 Enc Type: Inpatient Med Service: Medical Arrival: 12/27/2024 10:31:36 Discharge: LOS: 000 04:47 Checkin: 12/27/2024 10:31:36 Checkout: 12/27/2024 15:18:27 Dispo Type: Admitted as IP to this [facility] EVENTS: Event Name Event Status Request Date/Time [...] 12/27/2024 14:13:03 [place] Request 12/27/2024 14:13:45 ADDRESS: [address] [place] [address] [place] [phone] PHYS DOC NOTES: MEDICAL INFORMATION: Prescriptions Given: [...] Misc Pr (more content not included)... Normal [facility] ED Note-Physicianon 12-28-19 ED Note-Physician ED Note-Physician Basic Information Time Seen: Whit Simms M.D. 12/27/2024 10:36 Chief Complaint Pt presents to [...] and Complexity of Problems Differential Diagnosis: [] [facility] Data External documents reviewed: [] My [...] EDT, STAT, (more content not included)... Normal [facility] Comment on above: Result Comment: Elec tronically Signed By: Whit Simms M.D.\.hardik\Date and Time Signed: 12/27/24 13:59 EDT ED Patient Education Noteon 12-27-2024 ED Patient Education Note ED Patient Education Note Normal [facility] ED Patient Summaryon 025 ED Patient Summary ED Patient Summary [address] [address] Patient Discharge Instructions Person Information Name: CARMEN [...] [BMI] 50.0-59.9, adult Primary Care Physician: Yocasta SMITH, MASTER SCHEDULER-IRVING, Myron Hamilton Provider Information Primary Provider: Whit Simms M.D. Advanced Machine Technician:None The exam and treatment you received in the Emergency Department were for an urgent problem and are not intended as complete care. It is important that you follow up with a doctor, nurse practitioner, or physician???s design assistant for ongoing care. If your symptoms [...] opioids can be used to help relieve uxkdmbvz-cu-jkktab pain and are often prescribed following a [...] Administration (www (more content not included)... Normal [facility] HEMATOLOGYOrdered By: SYSTEM SYSTEM on 12-27-2024 [...] 12-27-2024 Albumin [Mass/Vol] 4.3 g/dL Normal 3.3-5.0 [facility] Comment on above: Performed By: #### 2 [id number] #### [facility] [address] [place] [address] Albumin/Globulin [Mass ratio] 1.4 {ratio} Normal 1.1-2.2 [facility] Comment on above: Performed By: #### 2 [id number] #### [facility] [address] [place] [address] Alk Phos 62 Int._Unit/L Normal 21-98 [facility] Comment on above: Performed By: #### 2 [id number] #### [facility] [address] [place] [address] ALT 23 Int._Unit/L Normal 6-46 [facility] Comment on above: Performed By: #### 2 [id number] #### [facility] [address] [place] [address] AST 21 Int._Unit/L Normal 5-43 [facility] Comment on above: Performed By: #### 2 [id number] #### [facility] [address] [place] [address] Bili Direct 0.1 mg/dL Normal 0.0-0.4 [facility] Comment on above: Performed By: #### 2 [id number] #### [facility] [address] [place] [address] Bili Indirect 0.3 mg/dL Normal 0.1-0.9 [facility] Comment on above: Performed By: #### 2 [id number] #### [facility] [address] [place] [address] Bili Total 0.4 mg/dL Normal 0.0-1.1 [facility] Comment on above: Performed By: #### 2 [id number] #### [facility] [address] [place] [address] Globulin (S) [Mass/Vol] 3.0 g/dL Normal 1.4-4.0 [facility] Comment on above: Performed By: #### 2 [id number] #### [facility] [address] [place] [address] Protein [Mass/Vol] 7.3 g/dL Normal 6.0-7.8 [facility] Comment on above: Performed By: #### 2 [id number] #### [facility] [address] [place] [address] Interdisciplinary Note - Janak e Manageron 12-27-2024 Interdisciplinary Note - Sales Development Director Interdisciplinary Note - Sales Development Director CRM did chart review Patient was just admitted this afternoon CRM will round for DC needs on 12/28 Normal [facility] Comment on above: Result Comment: Elec tronically Signed By: Clara Gold\.br\Date and Time Signed: 12/27/24 16:41 EDT Lactic Acidon 12-27-2024 Lactic Acid Lvl 1.2 mmol/L Normal 0.5-2.2 [facility] Comment on above: Performed By: #### 2 [id number] #### [facility] [address] [place] [address] No Panel InformationOrdered By: [facility] on 12-27-2024 Blood Culture Charcoal No growth at 2 days. Final to follow at 7 days. [facility] Blood Culture Charcoal No growth at 2 days. Final to follow at 7 days. [facility] PT & PTTon 12-27-2024 INR Coag (PPP) [Relative time] 0.96 {INR} Invalid Interpretation Code [facility] Comment on above: Result Comment: INR results are specifically intended to assess patients stabilized on long-term Anticoagulation therapy suggested INR???s ???Less Intensive Anticoagulation??? 2.0 ??? 3.0 Conventional Range 3.0 ??? 4.5 Performed By: #### 1 [id number] #### [facility] [address] [place] [address] PT 10.7 second(s) Normal 9.4-12.5 [facility] Comment on above: Result Comment: 15 d ays - 4 weeks 1 - 5 months 6 -11 months 1- 5 years 6-10 years 11 -17 years Mean: 11.2 (9.5-12.6) Mean: 11.0 (9.7-12.8) Mean: 11.0 (9.8-13.0) Mean: 11.3 (9.9-13.4) Mean: 11.7 (10.0-14.6) Mean: 11.8 (10.0 - 14.1) Pediatric Reference ranges were obtained from a study by ricardo Cruz. prepared from 1437 samples obtained at 7 different centers using the same coagulation reagent and instrumentation as [facility]. Currently there are no coagulation studies available worldwide for children to 14 days, and no normal ranges. Performed By: #### 1 [id number] #### [facility] [address] [place] [address] PTT 31.4 second(s) Normal 25.1-36.5 [facility] Comment on above: Result Comment: Para meter 15 days - 4 weeks 1 - 5 months 6 - 11 months 1 - 5 years 6 - 10 years 11 - 17 years PTT Mean: 35.4 (27.6-45.6) Mean: 33.5 (24.8-40.7) Mean: 32.4 (25.1-40.7) Mean: 31.6 (24.0-39.2) Mean: 31.6 (26.9-38.7) Mean: 31.0 (24.6-38.4) Pediatric Reference ranges were obtained from a study by ricardo Cruz. prepared from 1437 samples obtained at 7 different centers using the same coagulation reagent and instrumentation as [facility]. Currently there are no coagulation studies available worldwide for children to 14 days, and no normal ranges. Heparin therapeutic range (represented by Anti-Factor Xa activity of 0.2 - 0.4 U/mL) corresponds to PTT of 56.6 - 109.0 sec. Performed By: #### 1 [id number] #### [facility] [address] [place] [address] Procalcitoninon 12-27-2024 Procalcitonin .08 ng/mL Normal .00-.50 [facility] Comment on above: Result Comment: <0.5 ng/mL [...] to 24 hours. Performed By: #### 2 [id number] #### [facility] [address] [place] [address] Respiratory Panel by PCRon 0 12-27-2024 Adenovirus Not detected Normal [facility] Comment on above: Result Comment: Test ing was performed using nucleic acid amplification including Influenza A, Influenza A H1, Influenza A H3, Influenza B, RSV A, RSV B, Adenovirus, Human Metapneumovirus, Parainfluenza 1,2,3, and 4, Rhinovirus, Bordetella parapertussis/bronchiseptica, Bordetella holmesii, and Bordetella pertussis. Performed By: #### 1 [id number] #### [facility] [address] [place] [address] B. holmesii Not detected Normal [facility] Comment on above: Performed By: #### 1 [id number] #### [facility] [address] [place] [address] B. parapertussis/bronch iseptica Not detected Normal Not Detected [facility] Comment on above: Performed By: #### 1 [id number] #### [facility] [address] [place] [address] B. pertussis Not detected Normal Not Detected [facility] Comment on above: Performed By: #### 1 [id number] #### [facility] [address] [place] [address] Human Metapneumovirus Not detected Normal [facility] Comment on above: Result Comment: This test result should be correlated with clinical presentations and medical history by a healthcare provider to determine its clinical significance. Performed By: #### 1 [id number] #### [facility] [address] [place] [address] Influenza A Not detected Normal [facility] Comment on above: Performed By: #### 1 [id number] #### [facility] [address] [place] [address] Influenza A (subtype H1) Not detected Normal [facility] Comment on above: Performed By: #### 1 [id number] #### [facility] [address] [place] [address] Influenza A (subtype H3) Not detected Normal [facility] Comment on above: Performed By: #### 1 [id number] #### [facility] [address] [place] [address] Influenza B Not detected Normal [facility] Comment on above: Performed By: #### 1 [id number] #### [facility] [address] [place] [address] Parainfluenza 1 Not detected Normal [facility] Comment on above: Performed By: #### 1 [id number] #### [facility] [address] [place] [address] Parainfluenza 2 Not detected Normal [facility] Comment on above: Performed By: #### 1 [id number] #### [facility] [address] [place] [address] Parainfluenza 3 Not detected Normal [facility] Comment on above: Performed By: #### 1 [id number] #### [facility] [address] [place] [address] Parainfluenza 4 Not detected Normal [facility] Comment on above: Performed By: #### 1 [id number] #### [facility] [address] [place] [address] Resp Panel Intrl QC Pass Normal [facility] Comment on above: Performed By: #### 1 [id number] #### [facility] [address] [place] [address] Rhinovirus Not detected Normal [facility] Comment on above: Performed By: #### 1 [id number] #### [facility] [address] [place] [address] RSV A Not detected Normal [facility] Comment on above: Performed By: #### 1 [id number] #### [facility] [address] [place] [address] RSV B Not detected Normal [facility] Comment on above: Performed By: #### 1 [id number] #### [facility] [address] [place] [address] TSH With T4fr Reflexon 12-27 TSH Qn 2.71 m[IU]/L Normal 0.34-5.60 [facility] Comment on above: Performed By: #### 1 [id number] #### [facility] [address] [place] [address] Troponin 0 Hr.on 12-27-2024 Troponin HS 32.40 pg/mL High 10.10-27.10 [facility] Comment on above: Result Comment: The 95% CI (Confidence Interval) PPV (Positive Predictive Value) for myocardial infarction in females is 38 pg/mL, in males 51 pg/mL. The results should be used in conjunction with clinical conditions of myocardial infarction. (Access High Sensitivity Troponin I Instructions For Use, Дмитрий Kayla, February 2018) Performed By: #### 1 [id number] #### [facility] [address] [place] [address] Troponin 1 Hr.on 12-27-2024 Troponin HS 28.80 pg/mL High 10.10-27.10 [facility] Comment on above: Order Comment: 1143 Result Comment: The 95% CI (Confidence Interval) PPV (Positive Predictive Value) for myocardial infarction in females is 38 pg/mL, in males 51 pg/mL. The results should be used in conjunction with clinical conditions of myocardial infarction. (Access High Sensitivity Troponin I Instructions For Use, [employer], February 2018) Performed By: #### 1 [id number] #### [facility] [address] [place] [address] Troponin 3 Hr.on 12-27-2024 Troponin HS 28.80 pg/mL High 10.10-27.10 [facility] Comment on above: Result Comment: The 95% CI (Confidence Interval) PPV (Positive Predictive Value) for myocardial infarction in females is 38 pg/mL, in males 51 pg/mL. The results should be used in conjunction with clinical conditions of myocardial infarction. (Access High Sensitivity Troponin I Instructions For Use, [employer], February 2018) Performed By: #### 1 [id number] #### [facility] [address] [place] [address] Troponin 6 Hr.on 12-27-2024 Troponin HS 27.70 pg/mL High 10.10-27.10 [facility] Comment on above: Result Comment: The 95% CI (Confidence Interval) PPV (Positive Predictive Value) for myocardial infarction in females is 38 pg/mL, in males 51 pg/mL. The results should be used in conjunction with clinical conditions of myocardial infarction. (Access High Sensitivity Troponin I Instructions For Use, [employer], February 2018) Performed By: #### 1 [id number] #### [facility] [address] [place] [address] XR Chest Single Viewon 12-27 XR Chest [...] Sathya Christianson MD Transcribed by: KARSTEN Technologist: DEDRICK Normal [facility] eGFRon 12-27-2024 eGFR 83 mL/min/1.73 m2 Normal >=59 [facility] Comment on above: Performed By: #### 1 [id number] #### [facility] [address] [place] [address] Ambulatory Visit Summaryon 0 12-19-2024 Ambulatory Visit [...] VILLATORO Primary Care Physician - Yocasta SMITH, MASTER SCHEDULER-Myron VILLATORO This Is Your Medications List Contact prescribing [...] Follow-Up Appointments Tuesday 2:00 PM EDT With: Rikc Hernandez PA-C Where: [facility] Tuesday 1:40 PM EDT With: Yocasta SMITH, SRINIVAS, Myron Hamilton Where: [facility] [address] [place] [address]- You Need to Schedule the Following Appointments Follow Up with Yocasta SMITH, SRINIVAS, Myron Hamilton When: In 2 weeks Comments: chronic care Where: [address] [place] [phone] You Need to Complete the Following Microalbumin [...] See instru (more content not included)... Normal [facility] CHEMISTRYOrdered By: SYSTEM SYSTEM on 12-19-2024 [...] (Bld) [Mass fraction] 6.1 % High <=5.9% [facility] ChemAutoSS CMPon 12-19-2024 Albumin [Mass/Vol] 4.4 g/dL Normal 3.3-5.0 [facility] Comment on above: Performed By: #### 2 [id number] #### [facility] [address] [place] [address] Albumin/Globulin [Mass ratio] 1.5 {ratio} Normal 1.1-2.2 [facility] Comment on above: Performed By: #### 2 [id number] #### [facility] [address] [place] [address] Alk Phos 60 Int._Unit/L Normal 21-98 [facility] Comment on above: Performed By: #### 2 [id number] #### [facility] [address] [place] [address] ALT 31 Int._Unit/L Normal 6-46 [facility] Comment on above: Performed By: #### 2 [id number] #### [facility] [address] [place] [address] Anion gap [Moles/Vol] 13 mmol/L Normal 6-16 [facility] Comment on above: Performed By: #### 2 [id number] #### [facility] [address] [place] [address] AST 29 Int._Unit/L Normal 5-43 [facility] Comment on above: Performed By: #### 2 [id number] #### [facility] [address] [place] [address] Bili Total 0.4 mg/dL Normal 0.0-1.1 [facility] Comment on above: Performed By: #### 2 [id number] #### [facility] [address] [place] [address] BUN/Creat Ratio 11 No Units Normal 10-20 [facility] Comment on above: Performed By: #### 2 [id number] #### [facility] [address] [place] [address] Calcium [Mass/Vol] 9.4 mg/dL Normal 8.9-11.1 [facility] Comment on above: Performed By: #### 2 [id number] #### [facility] [address] [place] [address] Chloride [Moles/Vol] 95 mmol/L Low 101-111 [facility] Comment on above: Performed By: #### 2 [id number] #### [facility] [address] [place] [address] CO2 [Moles/Vol] 30 mmol/L Normal 21-31 [facility] Comment on above: Performed By: #### 2 [id number] #### [facility] [address] [place] [address] Creatinine [Mass/Vol] 0.7 mg/dL Normal 0.5-1.3 [facility] Comment on above: Performed By: #### 2 [id number] #### [facility] [address] [place] [address] Globulin (S) [Mass/Vol] 2.9 g/dL Normal 1.4-4.0 [facility] Comment on above: Performed By: #### 2 [id number] #### [facility] [address] [place] [address] Glucose [Mass/Vol] 88 mg/dL Normal 55-199 [facility] Comment on above: Performed By: #### 2 [id number] #### [facility] [address] [place] [address] Potassium [Moles/Vol] 4.0 mmol/L Normal 3.5-5.3 [facility] Comment on above: Performed By: #### 2 [id number] #### [facility] [address] [place] [address] Protein [Mass/Vol] 7.3 g/dL Normal 6.0-7.8 [facility] Comment on above: Performed By: #### 2 [id number] #### [facility] [address] [place] [address] Sodium [Moles/Vol] 134 mmol/L Low 135-145 [facility] Comment on above: Performed By: #### 2 [id number] #### [facility] [address] [place] [address] Urea nitrogen [Mass/Vol] 8 mg/dL Normal 5-21 [facility] Comment on above: Performed By: #### 2 [id number] #### [facility] [address] [place] [address] Family Medicine Office/Clini c Noteon 12-19-2024 Family [...] pressure. Impaired diastolic relaxation. List of Providers: Inserter: Rick Hernandez PA-C Twx Operator: Dr Phillip Orthopaedics: Dr Martinez LABS Cr/eGFR: eGFR: 98 mL/min/1.73 m2 (09/12/24 13:35:00) [...] High (07/13/24 11:18:00) Future Appointments [facility] Date: 01/01/2025 2:00 PM Scheduled Provider: Rick Hernandez PA-C [address] [place] [address], [address] Phone: [phone] Fax: [phone] The patient is presenting with shortness of [...] of l (more content not included)... Normal [facility] Comment on above: Result Comment: Elec tronically Signed By: Yocasta MSN, MASTER SCHEDULER- CERTIFIED CODER, Myron Hamilton\.br\Date and Time Signed: 12/19/24 16:05 EDT [id number] 12-19-2024 HbA1c (Bld) [Mass fraction] 6.1 % High <=5.9 [facility] Comment on above: Performed By: #### 7 [id number] #### [facility] [address] [place] [address] XR Chest 2 Viewson XR Chest 2 [...] Stevens MD Transcribed by: KARSTEN Technologist: KORIN Normal [facility] eGFRon 12-19-2024 eGFR 98 mL/min/1.73 m2 Normal >=59 [facility] Comment on above: Performed By: #### 1 [id number] #### [facility] [address] [place] [address] Ambulatory Visit Summaryon 0 11-27-2024 Ambulatory Visit [...] Tammy L. This Is Your Medications List albuterol (Albuterol [...] and Mouthpiece Kit) Misc Prescription (Test Strips) aripiprazole (Abilify 5 mg [...] Follow-Up Appointments Tuesday 12:40 PM EDT With: SRINIVAS Pereyra Tammy L. Where: [facility] [address] [place] [address]- Tuesday 2:00 PM EDT With: Rick Hernandez PA-C Where: [facility] You Need to Schedule the Following Appointments Follow Up with SRINIVAS Pereyra Tammy L. When: Only if needed Where: [address] [place] [phone] Medications What How Much When Why Instructions New albuterol (Albuterol (Eqv-Ventolin HFA) 90 mcg/ inh inhalation aerosol) 2 Puffs Inhalation Every 6 hours as needed for Shortness of breath or wheezing Refills: 3 Pickup at [email or web address]33565 New fluticasone-salmetero l (Advair Diskus 250 mcg-50 mcg inhalation powder) 1 Puffs Inhalation 2 times a day Duration: 30 Days Pickup at [facility] #09857 Unchanged glipiZIDE (glipiZIDE 2.5 mg ER Tab) 1 Tablets By Mouth Every day Pickup at [facility] #31660 Unchanged rosuvastatin (Crestor 40 mg Tab) 1 Tablets By Mouth Every day Mixed hyperlipidemia Pickup at [facility] #35283 Unchanged aripiprazole (Abilify 5 mg Tab) 1 [...] Contact prescr (more content not included)... Normal [facility] Family Medicine Office/Clini c Noteon 11-27-2024 [...] medical options pending insurance approval for the [facility]. Preparation for potential bariatric intervention continues [...] again. 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 Ordered: Current tobacco smoker 1034F Depression Screening [...] that time she is already seeing the weld inspector and they have ordered the PFT if [...] Alcohol u (more content not included)... Normal [facility] Comment on above: Result Comment: Elec tronically Signed By: Yocasta SMITH, DARLEEN- Myron VILLATORO\.br\Date and Time Signed: 11/27/24 17:35 EDT Ambulatory [...] With: Rick Hernandez PA-C Where: [facility] Tuesday 12:40 PM EDT With: Yocasta SMITH, Myron ESPINO Where: [facility] [address] [place] [address]- You Need to Schedule the Following Appointments Follow Up with Yocasta SMITH, Myron ESPINO When: In 3 months Comments: chronic care Where: [address] [place] [phone] Someone Will Contact You Regarding These Appointments [facility] External Ambulatory Referral, Surgery, [facility] Bariatric surgery, 09/12/24 13:11:00 EDT, Morbid obesity [...] pantoprazole (Pantopr (more content not included)... Normal [facility] CHEMISTRYOrdered By: SYSTEM SYSTEM on 09-12-2024 [...] 09-12-2024 Albumin [Mass/Vol] 4.3 g/dL Normal 3.3-5.0 [facility] Comment on above: Performed By: #### 2 [id number] #### [facility] [address] [place] [address] Albumin/Globulin (S) [Mass conc ratio] 1.5 Normal 1.1-2.2 [facility] Comment on above: Performed By: #### 2 [id number] #### [facility] [address] [place] [address] ALP [Catalytic activity/Vol] 54 Int._Unit/L Normal 21-98 [facility] Comment on above: Performed By: #### 2 [id number] #### [facility] [address] [place] [address] ALT No additional P-5'-P [Catalytic activity/Vol] 18 Int._Unit/L Normal 6-46 [facility] Comment on above: Performed By: #### 2 [id number] #### [facility] [address] [place] [address] Anion gap [Moles/Vol] 11 mmol/L Normal 6-16 [facility] Comment on above: Performed By: #### 2 [id number] #### [facility] [address] [place] [address] AST [Catalytic activity/Vol] 18 Int._Unit/L Normal 5-43 [facility] Comment on above: Performed By: #### 2 [id number] #### [facility] [address] [place] [address] Bilirubin [Mass/Vol] 0.4 mg/dL Normal 0.0-1.1 [facility] Comment on above: Performed By: #### 2 [id number] #### [facility] [address] [place] [address] Calcium [Mass/Vol] 9.1 mg/dL Normal 8.9-11.1 [facility] Comment on above: Performed By: #### 2 [id number] #### [facility] [address] [place] [address] Chloride [Moles/Vol] 98 mmol/L Low 101-111 [facility] Comment on above: Performed By: #### 2 [id number] #### [facility] [address] [place] [address] CO2 [Moles/Vol] 27 mmol/L Normal 21-31 [facility] Comment on above: Performed By: #### 2 [id number] #### [facility] [address] [place] [address] Creatinine [Mass/Vol] 0.7 mg/dL Normal 0.5-1.3 [facility] Comment on above: Performed By: #### 2 [id number] #### [facility] [address] [place] [address] Globulin (S) [Mass/Vol] 2.8 g/dL Normal 1.4-4.0 [facility] Comment on above: Performed By: #### 2 [id number] #### [facility] [address] [place] [address] Glucose [Mass/Vol] 95 mg/dL Normal 55-199 [facility] Comment on above: Performed By: #### 2 [id number] #### [facility] [address] [place] [address] Potassium [Moles/Vol] 4.0 mmol/L Normal 3.5-5.3 [facility] Comment on above: Performed By: #### 2 [id number] #### [facility] [address] [place] [address] Protein [Mass/Vol] 7.1 g/dL Normal 6.0-7.8 [facility] Comment on above: Performed By: #### 2 480310 #### [facility] [address] [place] [address] Sodium [Moles/Vol] 132 mmol/L Low 135-145 [facility] Comment on above: Performed By: #### 2 529885 #### [facility] [address] [place] [address] Urea nitrogen [Mass/Vol] 12 mg/dL Normal 5-21 [facility] Comment on above: Performed By: #### 2 [id number] #### [facility] [address] [place] [address] Urea nitrogen/Creatinine [Mass ratio] 17 No Units Normal 10-20 [facility] Comment on above: Performed By: #### 2 [id number] #### [facility] [address] [place] [address] Family Medicine Office/Clini c Noteon 09-12-2024 Family [...] Years old Female here for r/s-6mo f/u, HPI staff / Chief Complaint confirmed with [...] pressure. Impaired diastolic relaxation. List of Providers: Inserter: Rick Hernandez PA-C Twx Operator: Dr Phillip Orthopaedics: Dr Martinez LABS Cr/eGFR: [...] High (07/13/24 11:18:00) Future Appointments [facility]. Date: 12/18/2024 11:00 AM Scheduled Provider: [place], [address] Phone: [phone] Fax: [phone] The patient is presenting with concerns surrounding [...] current e (more content not included)... Normal [facility] Comment on above: Result Comment: Elec tronically Signed By: Yocasta SMITH, MASTER SCHEDULER- CERTIFIED CODERMyron\.br\Date and Time Signed: 09/12/24 15:31 EDT eGFRon 09-12-2024 eGFR 98 mL/min/1.73 m2 Normal >=59 [facility] Comment on above: Performed By: #### 1 [id number] #### [facility] [address] [place] [address] Provider Letteron 09-04-2024 Provider Letter Provider Letter September 04, 2024 CARMEN BLEDSOE [address] [place] [address] : 1960 Dear Carmen, We have been trying to reach you with no success. Please call us at [phone] in regards to rescheduling your Colonoscopy. Thank you for your prompt attention to this matter. Sincerely, [facility] Normal [facility] Ambulatory Visit Summaryon 0 07-18-2024 Ambulatory Visit Summary Ambulatory Visit Summary CARMEN BLEDSOE :1960 Visit Date:07/18/2024 Ambulatory Visit Instructions Your Diagnosis Type 2 diabetes mellitus with morbid obesity Alcohol problem drinking Bilateral leg edema Morbid obesity, Morbid (severe) obesity due to excess calories BMI 50.0-59.9, adult Your Care Team Attending Physician - Yocasta SMITH, MASTER SCHEDULER-CERTIFIED CODERMyron Primary Care Physician - Yocasta MSN, MASTER SCHEDULER-CERTIFIED CODERMyron This Is Your Medications List semaglutide (Ozempic [...] Tuesday 1:00 PM EST With: Yocasta SMITH, MASTER SCHEDULER-CERTIFIED CODERMyron Where: [facility] [place] [address] [place] [address]- Tuesday 11:00 AM EST With: Where: [facility] Tuesday 11:00 AM EDT With: Rick Hernandez PA-C Where: [facility] You Need to Schedule the Following Appointments Follow Up with Yocasta SMITH, MASTER SCHEDULER-IRVING, Myron Hamilton When: Only if needed Comments: keep next month appt Where: [address] [place] [phone] Medications What How Much When Why Instructions New semaglutide (Ozempic 2 mg/ 3 mL (0.25 mg or 0.5 mg dose) subcutaneous solution) 0.5 Milligram Subcutaneous Every week Type 2 diabetes mellitus with morbid obesity Pickup at [facility] #68999 Unchanged albuterol (albuterol 0.083% Inh Rochelle 3 [...] E11.9 Co (more content not included)... Normal [facility] Family Medicine Office/Clini c Noteon 07-18-2024 [...] qWeek, # 2 EA, Refills(s) 0, Pharmacy: [facility] #[id number], 168, cm, 07/18/24 11:59:00 EST, Height/Length Dosing, [...] Follow-up With When Contact Information Yocasta SMITH, MASTER SCHEDULER-CERTIFIED CODER, Myron Hamilton Only if needed [address] [place] [phone] Additional Instructions: keep next month appt Patient [...] hip p (more content not included)... Normal [facility] Comment on above: Result Comment: Elec tronically Signed By: Yocasat SMITH, Myron MUÑOZ CNP\.br\Date and Time Signed: 07/18/24 12:22 EST [id number] 07-17-2024 HbA1c (Bld) [Mass fraction] 5.7 % Normal <=5.9 [facility] Comment on above: Performed By: #### 7 [id number] #### [facility] [address] [place] [address] Ambulatory Visit Summaryon 0 07-13-2024 Ambulatory Visit [...] Tuesday 12:00 PM EST With: Yocasta SMITH, DARLEEN-Myron VILLATORO Where: [address] [address]- Tuesday 1:00 PM EST With: Yocasta SMITH, DARLEEN-Myron VILLATORO Where: [address] [address]- Tuesday 11:00 AM EST With: Where: [facility] Tuesday 11:00 AM EDT With: Rick Hernandez PA-C Where: [facility] Medications What How Much When Why Instructions [...] you are (more content not included)... Normal [facility] Ambulatory Visit Summary Ambulatory Visit Summary [...] Team Primary Care Physician - Yocasta MSN, MASTER SCHEDULER-CERTIFIED CODER, Myron Hamilton This Is Your Medications List [...] Appointments Tuesday 12:00 PM EST With: Yocasta SMTIH, MASTER SCHEDULER-CERTIFIED CODERMyron Where: [facility] [address] [place] [address]- Tuesday 1:00 PM EST With: Yocasta SMITH, MASTER SCHEDULER-CERTIFIED CODERMyron Where: [facility] [address] [place] [address]- Tuesday 11:00 AM EST With: Where: [facility] Tuesday 11:00 AM EDT With: Rick Hernandez PA-C Where: [facility] You Need to Complete the Following [id number], Blood, Routine collect, 11/02/23, Order for future [...] Lab Collec (more content not included)... Normal [facility] BNPon 07-13-2024 Int Ctr BNP Pass Normal [facility] Comment on above: Performed By: #### 1 [id number] #### [facility] [address] [place] [address] Natriuretic peptide B (Bld) [Mass/Vol] 39 pg/mL Normal 5-80 [facility] Comment on above: Performed By: #### 1 [id number] #### [facility] [address] [place] [address] CBC w/ Auto Diffon 5 Basophils/100 WBC (Bld) 0.7 % Normal 0.0-2.0 [facility] Comment on above: Performed By: #### 2 [id number] #### [facility] [address] [place] [address] Basophils/Leukocytes Auto (Bld) [Pure # fraction] 0.0 E9/L Normal 0.0-0.2 [facility] Comment on above: Performed By: #### 2 [id number] #### [facility] [address] [place] [address] Eosinophils (Bld) [#/Vol] 0.1 E9/L Normal 0.0-0.5 [facility] Comment on above: Performed By: #### 2 [id number] #### [facility] [address] [place] [address] Eosinophils/100 WBC (Bld) 1.1 % Normal 0.0-8.0 [facility] Comment on above: Performed By: #### 2 [id number] #### [facility] [address] [place] [address] Erythrocyte distribution width (RBC) [Ratio] 15.5 % High 10.9-14.2 [facility] Comment on above: Performed By: #### 2 [id number] #### [facility] [address] [place] [address] Hematocrit (Bld) [Volume fraction] 41.1 % Normal 34.0-46.0 [facility] Comment on above: Performed By: #### 2 [id number] #### [facility] [address] [place] [address] Hemoglobin (Bld) [Mass/Vol] 14.2 g/dL Normal 12.0-16.0 [facility] Comment on above: Performed By: #### 2 [id number] #### [facility] [address] [place] [address] Lymphocytes (Bld) [#/Vol] 1.2 E9/L Normal 1.0-4.0 [facility] [facility] Comment on above: Performed By: #### 2 [id number] #### [facility] [address] [place] [address] Lymphocytes/100 WBC (Bld) 18.3 % Normal 14.0-50.0 [facility] Comment on above: Performed By: #### 2 [id number] #### [facility] [address] [place] [address] MCH (RBC) [Entitic mass] 32.3 pg Normal 27.0-34.0 [facility] Comment on above: Performed By: #### 2 [id number] #### [facility] [address] [place] [address] MCHC (RBC) [Mass/Vol] 34.5 g/dL Normal 31.4-36.0 [facility] Comment on above: Performed By: #### 2 069335 #### [facility] [address] [place] [address] MCV (RBC) [Entitic vol] 93.7 fL Normal 80.0-100.0 [facility] Comment on above: Performed By: #### 2 686816 #### [facility] [address] [place] [address] Monocytes (Bld) [#/Vol] 0.4 E9/L Normal 0.2-1.0 [facility] Comment on above: Performed By: #### 2 792337 #### [facility] [address] [place] [address] Neutrophils (Bld) [#/Vol] 4.8 E9/L Normal 2.0-7.5 [facility] Comment on above: Performed By: #### 2 950346 #### [facility] [address] [place] [address] Neutrophils/100 WBC (Bld) 74.5 % Normal 36.0-75.0 [facility] Comment on above: Performed By: #### 2 [id number] #### [facility] [address] [place] [address] Platelet mean volume (Bld) [Entitic vol] 8.3 fL Normal 6.4-10.8 [facility] Comment on above: Performed By: #### 2 341803 #### [facility] [address] [place] [address] Platelets (Bld) [#/Vol] 239.0 E9/L Normal 150.0-500.0 [facility] Comment on above: Performed By: #### 2 819268 #### [facility] [address] [place] [address] RBC (Bld) [#/Vol] 4.4 E12/L Normal 4.3-5.9 [facility] Comment on above: Performed By: #### 2 070886 #### [facility] [address] [place] [address] WBC corrected for nucl RBC Auto (Bld) [#/Vol] 6.5 E9/L Normal 4.0-11.0 [facility] Comment on above: Performed By: #### 2 000691 #### [facility] [address] [place] [address] CHEMISTRYOrdered By: SYSTEM SYSTEM on 07-13-2024 Albumin [...] 39 pg/mL Normal 5 - 80 pg/mL [facility] CMPon 07-13-2024 Albumin [Mass/Vol] 4.3 g/dL Normal 3.3-5.0 [facility] Comment on above: Performed By: #### 2 520867 #### [facility] [address] [place] [address] Albumin/Globulin (S) [Mass conc ratio] 1.3 Normal 1.1-2.2 [facility] Comment on above: Performed By: #### 2 843321 #### [facility] [address] [place] [address] ALP [Catalytic activity/Vol] 66 Int._Unit/L Normal 21-98 [facility] Comment on above: Performed By: #### 2 609855 #### [facility] [address] [place] [address] ALT No additional P-5'-P [Catalytic activity/Vol] 23 Int._Unit/L Normal 6-46 [facility] Comment on above: Performed By: #### 2 573283 #### [facility] [address] [place] [address] Anion gap [Moles/Vol] 12 mmol/L Normal 6-16 [facility] Comment on above: Performed By: #### 2 884261 #### [facility] [address] [place] [address] AST [Catalytic activity/Vol] 18 Int._Unit/L Normal 5-43 [facility] Comment on above: Performed By: #### 2 396881 #### [facility] [address] [place] [address] Bilirubin [Mass/Vol] 0.5 mg/dL Normal 0.0-1.1 [facility] Comment on above: Performed By: #### 2 472151 #### [facility] [address] [place] [address] Calcium [Mass/Vol] 9.8 mg/dL Normal 8.9-11.1 [facility] Comment on above: Performed By: #### 2 198053 #### [facility] [address] [place] [address] Chloride [Moles/Vol] 100 mmol/L Low 101-111 [facility] Comment on above: Performed By: #### 2 314960 #### [facility] [address] [place] [address] CO2 [Moles/Vol] 27 mmol/L Normal 21-31 [facility] Comment on above: Performed By: #### 2 258044 #### [facility] [address] [place] [address] Creatinine [Mass/Vol] 0.7 mg/dL Normal 0.5-1.3 [facility] Comment on above: Performed By: #### 2 029748 #### [facility] [address] [place] [address] Globulin (S) [Mass/Vol] 3.2 g/dL Normal 1.4-4.0 [facility] Comment on above: Performed By: #### 2 839261 #### [facility] [address] [place] [address] Glucose [Mass/Vol] 88 mg/dL Normal 55-199 [facility] Comment on above: Performed By: #### 2 204081 #### [facility] [address] [place] [address] Potassium [Moles/Vol] 4.3 mmol/L Normal 3.5-5.3 [facility] Comment on above: Performed By: #### 2 576305 #### [facility] [address] [place] [address] Protein [Mass/Vol] 7.5 g/dL Normal 6.0-7.8 [facility] Comment on above: Performed By: #### 2 533606 #### [facility] [address] [place] [address] Sodium [Moles/Vol] 135 mmol/L Normal 135-145 [facility] Comment on above: Performed By: #### 2 826247 #### [facility] [address] [place] [address] Urea nitrogen [Mass/Vol] 14 mg/dL Normal 5-21 [facility] Comment on above: Performed By: #### 2 994174 #### [facility] [address] [place] [address] Urea nitrogen/Creatinine [Mass ratio] 20 No Units Normal 10-20 [facility] Comment on above: Performed By: #### 2 504791 #### [facility] [address] [place] [address] HEMATOLOGYOrdered By: SYSTEM SYSTEM on 07-13-2024 Basophils/100 [...] 07-13-2024 Cholesterol [Mass/Vol] 163 mg/dL Normal 120-200 [facility] Comment on above: Performed By: #### 2 217957 #### [facility] [address] [place] [address] Cholesterol in HDL [Mass/Vol] 47 mg/dL Invalid Interpretation Code [facility] Comment on above: Result Comment: '>= 60 LOW RISK' '<= 40 HIGH RISK' Performed By: #### 2 284223 #### [facility] [address] [place] [address] Cholesterol in LDL [Mass/Vol] 97 mg/dL Normal <=129 [facility] Comment on above: Performed By: #### 2 109598 #### [facility] [address] [place] [address] Cholesterol in VLDL [Mass/Vol] 42 mg/dL High 7-40 [facility] Comment on above: Performed By: #### 2 011153 #### [facility] [address] [place] [address] Triglyceride [Mass/Vol] 208 mg/dL High <=149 [facility] Comment on above: Performed By: #### 2 472364 #### [facility] [address] [place] [address] Vit B12on 07-13-2024 Cobalamin (Vitamin B12) [Mass/Vol] 191 pg/mL Normal 50-1500 [facility] Comment on above: Performed By: #### 2 968970 #### [facility] [address] [place] [address] eGFRon 07-13-2024 eGFR 98 mL/min/1.73 m2 Normal >=59 [facility] Comment on above: Performed By: #### 1 [id number] #### [facility] [address] [place] [address] Family Medicine Office/Clini c Noteon 07-12-2024 Family [...] the cramping. Did encouraged to follow-up with director school of nursing if no improvement. 2. Alcohol problem drinking [...] 3 days Additional Instructions: fasting labs Yocasta MSN, MASTER SCHEDULER-CERTIFIED CODER, Myron Hamilton In [address] [place] [phone] Additional Instructions: chronic care Patient Education Alcohol [...] acquired Smoker (more content not included)... Normal [facility] Comment on above: Result Comment: Elec [...] Myron ESPINO This Is Your Medications List dicyclomine (Bentyl [...] Appointments Tuesday 11:00 AM EST With: Where: [facility] [address] [place] [address]- Tuesday 12:00 PM EST With: Yocasta SMITH, DARLEEN-Myron VILLATORO Where: [facility] [address] [place] [address]- Tuesday 1:00 PM EST With: Yocasta SMITH, DARLEEN-Myron VILLATORO Where: [facility] [address] [place] [address]- Tuesday 11:00 AM EST With: Where: [facility] Tuesday 11:00 AM EDT With: Rick Hernandez PA-C Where: [facility] You Need to Schedule the Following Appointments Follow Up with nurse visit When: Within 2 to 3 days Comments: fasting labs Where: Follow Up with Yocasta SMITH, DARLEEN-Myron VILLATORO When: In 1 week Comments: chronic care Where: [address] [place] [phone] You Need to Complete the Following B-Type [...] day as needed for Pain Pickup at [facility] #[id number] Unchanged albuterol (albuterol 0.083% Inh Rochelle 3 mL) 3 Shanta (more content not included)... Normal [facility] Ambulatory Visit Summaryon 1 08-06-2023 Ambulatory Visit Summary Ambulatory Visit Summary CARMEN BLEDSOE :1960 Visit Date:06/05/2024 Ambulatory Visit Instructions Your Diagnosis Benign hypertension Mixed hyperlipidemia Peripheral edema Your Care Team Attending Physician - David LEONARD, Rick Gipson Primary Care Physician - Yocasta MSN, MASTER SCHEDULER-CERTIFIED CODER, Myron Hamilton Referring Physician - NONE, XXXX [...] Tuesday 1:00 PM EST With: Yocasta MSN, MASTER SCHEDULER-CERTIFIED CODER, Myron Hamilton Where: [facility] [place] [address] [place] [address]- Tuesday 11:00 AM EST With: Where: [facility] Tuesday 11:00 AM EDT With: David LEONARD, Rick Gipson Where: [facility] Medications What How Much When Why Instructions [...] are currently receiving treatment for. Alcohol problem drin (more content not included)... Normal [facility] Vascular Office/Cl inic Noteon 06-05-2024 [...] Daily, # 90 tab(s), Refills(s) 1, Pharmacy: [facility] #[id number], 168, cm, 06/05/24 13:03:00 EST, Height/Length Dosing, 145.9, kg, 06/05/24 13:03:00 EST, Weight Dosing 2. Mixed hyperlipidemia (E78.2: Mixed hyperlipidemia) Patient is currently taking rosuvastatin 40 mg daily for HLD. Continue with current medication Ordered: rosuvastatin, 40 mg = 1 tab(s), Oral, Daily, # 90 tab(s), Refills(s) 3, Pharmacy: [facility] #[id number], 168, cm, 06/05/24 13:03:00 EST, Height/Length Dosing, [...] Daily, # 90 tab(s), Refills(s) 1, Pharmacy: [facility] #[id number], 168, cm, 06/05/24 13:03:00 EST, Height/Length Dosing, 145.9, kg, 06/05/24 13:03:00 EST, Weight Dosing potassium chloride, 20 mEq = 1 tab(s), Oral, Daily, Take with Lasix, # 90 tab(s), Refills(s) 1, Pharmacy: [facility] #[id number], 168, cm, 06/05/24 13:03:00 EST, Height/Length Dosing, 145.9, kg, 06/05/24 13:03:00 EST, Weight Dosing Follow-up with me in 6 months or sooner if needed Portions of this record may have been created with voice recognition artificial intelligence software, specifically [employer], [employer] and or [employer]. Substitutions may have occurred due to the inherent limitations of voice recognition and artificial intelligence software. Follow-up No qualifying data available Problem List/Past Medical History Ongoing Alcohol problem drinking Benign hypertension Bilateral hip pain Bilateral leg edema BMI 45.0-49.9, adult (more content not included)... Normal [facility] Comment on above: Result Comment: Elec tronically Signed By: David LEONARD, Rick Gipson\.br\Date and Time Signed: 06/05/24 13:24 EST Family [...] smear: 2019 DEXA: NA Labs: 08/10/2023 at [facility] Diabetes/ prediabetes: Eye exam: few years ago, had cataract surgery Foot exam: 08/10/2023 done by Omari VILLATORO A1c: Hgb A1C %: 6.3 % High (08/20/22 15:02:00) Smokers/ former smokers: Low dose lung CT: _ List of Providers: Inserter: Dr Ramirez Twx Operator: Dr Phillip Orthopaedics: Dr Martinez LABS Cr/eGFR: eGFR: >90 (11/17/2023) Creatinine: 0.7 mg/dL [...] 4.6 mcg/mL (08/20/22 15:02:00) . Future Appointments [facility] Appt. Date: 02/22/2024 1:20 PM Scheduled Provider: Myron Macias [address] [place], [address] Phone: [phone] Fax: [phone] [address], [place], [phone] Phone: -- Fax: -- [facility] Appt. Date: 06/05/2024 1:00 PM Scheduled Provider: Alirio Ramirez MD [address] [place], [address] Fax: [phone] [address] [place] [address], [address] Phone: -- Fax: -- [address] [place] [address], [address] Phone: -- Fax: -- [facility] Appt. Date: 08/31/2024 11:00 AM Scheduled Provider: ENDO 1 [facility] [address] [place], [phone] Fax: -- She reports feeling well with [...] last HbA1c was 5.4% when checked at [facility]. She has discontinued her trazodone for sleep but continues to use a CPAP machine. She has already had a colonoscopy, and there is another scheduled in 3 months. Her last mammogram was (more content not included)... Normal [facility] Comment on above: Result Comment: Elec tronically Signed By: WANDA Pereyra CNP, Tammy L.\.br\Date and Time Signed: 02/23/24 15:15 EDT\.br\Electronically Co-Signed By: MEGHAN KRAUSE\.br\Date and Time Co-Signed: 02/22/24 16:47 EDT Ambulatory [...] Tammy L. This Is Your Medications List aripiprazole (Abilify [...] Adam SAMPSON, Alirio Hooper Where: [facility] Tuesday 1:00 PM EST With: Yocasta SMITH, MASTER SCHEDULER-Myron VILLATORO Where: [place] [address] [place] [address]- Tuesday 11:00 AM EST With: Where: [facility] You Need to Schedule the Following Appointments Follow Up with Yocasta SMITH, MASTER SCHEDULER-Myron VILLATORO When: In 6 months Comments: chronic care Where: [address] [place] [phone] Medications What How Much When Why Instructions Changed aripiprazole (Abilify 5 mg Tab) 1 Tablets By Mouth Every day Changed dulaglutide (Trulicity Pen 3 mg/ 0.5 mL subcutaneous solution) 3 Milligram Subcutaneous Every week Type 2 diabetes mellitus with morbid obesity Pickup at [facility] #[id number] Unchanged albuterol (albuterol 0.083% Inh Rochelle 3 [...] Misc Prescription (more content not included)... Normal [facility] Heart and Vascular Office/Cl inic Noteon [...] after patient or guardian consented to allow [facility] to record this visit. BUD field technical specialist and provider reviewed before signing. BUD: Tyra Manatad/pasted by: Josse Nava Portions of this record may have been created with voice recognition artificial intelligence software, specifically [employer], [employer] and or Vyatta. Substitutions may have occurred due to the [...] furosemide 4 (more content not included)... Normal [facility] Comment on above: Result Comment: Elec tronically Signed By: Adam SAMPSON, Alirio Hooper\.br\Date and Time Signed: 01/28/24 09:35 EDT\.br\Electronically Co-Signed By: Josse Nava\.br\Date and Time Co-Signed: 12/06/23 16:45 EDT Consenton 12-26-2023 Consent [id number]# 1.00TIFF Normal [facility] Discharge Instructionson Discharge Instructions [id number]# 1.00TIFF Normal [facility] Main OR Intraoperative Recor don 12-26-2023 Main OR Intraoperative Record IntraOp Document Type FT Summary Primary Physician: Walker Phillip MD Finalized Date/Time: 12/26/23 11:06:58 Pt. Name: CARMEN BLEDSOE/Sex: 1960 Female Med Rec #: [id number] Physician: Walker Phillip MD Financial #: [id number] Pt. Type: O Room/Bed: / Admit/Disch: 12/23/23 [...] Lainez RN, Ray Graham Role Performed Anesthesiologist Associate Director Financial Aid - Primary Staff - Other Vp Client Services Time In 12/23/23 12:15:00 12/23/23 12:15:00 12/23/23 12:15:00 Time Out 12/23/23 12:57:00 12/23/23 12:57:00 12/23/23 12:57:00 Procedure COLONOSCOPY(.) COLONOSCOPY(.) COLONOSCOPY(.) Comments Dr. Benz is supervising Last Modified By: Felicia Lainez RN, RN, Felicia Lainez RN, Felicia Lee 12/23/23 12:57:38 12/23/23 12:57:38 12/23/23 12:57:38 Entry 4 Entry 5 Case Attendee Mini GARZA, Mayte Phillip MD, Walker Pritchett Role Performed Scrub - Primary Surgeon - Primary Time In 12/23/23 12:15:00 12/23/23 12:15:00 Time Out 12/23/23 12:57:00 12/23/23 12:57:00 Procedure COLONOSCOPY(.) COLONOSCOPY(.) Comments Last Modified By: Felicia Lainez RN, RN, Kristin N 12/23/23 12:57:38 12/23/23 12:57:38 Perioperative Protocols FT [...] Fraser CRNA, Given Participants Felicia Lainez RN, Sparks, Micala E, Schafer CST, Marjan Mcdermott MD, Walker Pritchett [...] and tissue Entry 1 Skin Integrity Intact, [place], Warm, and Skin Abnormality No Dry Outcomes Met? Yes Last Modified By: Felicia Lainez RN 12/23/23 12:25:30 Post-Care Text: The patient is free from signs and symptoms of injury caused by extraneous objects Patient Positioning FT Pre-Care Text: Identifies physical alterations that require additional precautions for procedure-specific posit (more content not included)... Normal [facility] Consent for Treatmenton 12-03 Consent for Treatment [id number] .00TIFF Normal [facility] Discharge Instructionson Discharge Instructions LADICARMEN :1960 Visit Date:12/23/2023 Inpatient Discharge Instructions Your [...] Appointments Tuesday 10:30 AM EDT With: Where: [facility] Tuesday 10:00 AM EDT With: Marjan SAMPSON, Walker Pritchett Where: [facility] Normal [address] [place] [address]- \.br\ Tuesday 1:00 PM EST \.br\ With: Alirio Ramirez MD\.br\ Where: [facility]\.br\ New Follow Up Appointments after Discharge\.br\ Follow Up with Marjan SAMPSON, Walker Pritchett, GAS, MED When: \.br\ Comments:\.br\ Call Office in 2 weeks for results or follow-up Appt. \.br\ Where:\.br\ [address], [address] [facility] 3\.br\ [place] [address]-\.br\ [phone]\.br\ Medications\.br\ What How Much When Why Instructions [...] Chest discomfort: Most heart attacks involve discomf [facility] Comment on above: Result Comment: Elec tronically Signed By: Serge MURRAY, Catarino\.hardik\Date and Time Signed: 12/23/23 13:18 EDT Endoscopic [...] MD. Current history and physical Reviewed. Colonoscopy ([id number]) on 03/17/2020 at 59 Years. L foot bunion/reconstruction . Eye/lens implant bilat. Knee replacement ([id number]).. Past Medical History Resolved Tubular adenoma of colon ([id number]): Resolved. COPD exacerbation (071939060): Resolved.. Family History Liver cancer Father () Hypertension Sister Brother Mother () Stomach cancer Mother () . Procedure History Colonoscopy ([id number]) on 03/17/2020 at 59 Years. L foot bunion/reconstruction . Eye/lens implant bilat. Knee replacement ([id number]).. Colorectal neoplasm risk assessment High risk Previous [...] 90 tab(s), Refills(s) 3, Pharmacy: [facility] #[id number], 167, cm, 01/11/23 11:15:00 EDT, Height/Length Dosing, 138, kg, 01/11/23 11:15:00 EDT, Weight Dosing Alcohol wipes: Alcohol wipes, See Instructions, 100 EA, 3, Use to check BS daily dx E11.9, [facility] #[id number], Supply, 163, cm, 12/30/21 11:09:00 EDT, Height/Length Dosing, 154, kg, 12/30/21 11:09:00 EDT, Weight Dosing Crestor 40 mg Tab: 40 mg = 1 tab(s), Oral, Daily, # 90 tab(s), Refills(s) 3, Pharmacy: [facility] #[id number], 167, cm, 05/09/23 8:15:00 EST, Height/Length Dosing, 145.6, kg, 05/09/23 8:15:00 EST, Weight Dosing FLUoxetine 20 mg Cap: 40 mg = 2 cap(s), Oral, Daily, # 180 cap(s), Refills(s) 1, Pharmacy: [facility] #[id number], 167, cm, 08/10/23 14:24:00 EST, Height/Length Dosing, 151.4, kg, 08/10/23 14:24:00 EST, Weight Dosing Glucometer: Glucometer, See Instructions, 1 EA, 0, Glucometer to test BS TID and PRN dx E11.9, [facility], Supply, 170, cm, 05/27/21 8:31:00 EST, Height/Length Dosing, 157.8, kg, 05/27/21 8:31:00 EST, Weight Dosing Jardiance 10 mg oral tablet: 10 mg, Oral, Daily, # 90 tab(s), Refills(s) 2, Pharmacy: [facility] #[id number], 167, cm, 08/10/23 14:24:00 EST, Height/Length Dosing, 151.4, kg, 08/10/23 14:24:00 EST, Weight Dosing Lancets: Lancets, See Instructions, 100 EA, 3, Use to check BS daily dx E11.9, [facility] #[id number], Supply, 163, cm, 12/30/21 11:09:00 EDT, Height/Length Dosing, 154, kg, 12/30/21 11:09:00 EDT, Weight Dosing Nebulizer Machine: Nebulizer Machine, See Instructions, 1 EA, 0, Nebulizer Machine, [facility] #[id number], Supply, 168, cm, 10/11/23 14:32:00 EDT, Height/Length Dosing, 160.2, kg, 10/11/23 14:32:00 EDT, Weight Dosing Nebulizer Tubing and Mouthpiece Kit: Nebulizer Tubing and Mouthpiece Kit, See Instructions, 1 kit(s), 0, Nebulizer Tubing and Mouthpiece Kit, [facility] #[id number], Supply, 168, cm, 10/11/23 14:32:00 EDT, Height/Length Dosing, 160.2, kg, 10/11/23 14:32:00 EDT, Weight Dosing Pantoprazole [address] Tab: 40 mg = 1 tab(s), Oral, Daily, # 90 tab(s), Refills(s) 3, Pharmacy: [facility] #[id number], 167, cm, 01/11/23 11:15:00 EDT, Height/Length Dosing, 138, kg, 01/11/23 11:15:00 EDT, Weight Dosing Singulair 10 mg Tab: 10 mg = 1 tab(s), Oral, qPM, # 30 tab(s), Refills(s) 2, Pharmacy: [facility], 170, cm, 10/16/19 9:09:00 EDT, Height/Length [...] Use to test BS daily, [facility] #[id number], Supply, 167.5, cm, 10/18/22 13:30:00 EDT, Height/Length Dosing, 147, kg, 10/18/22 13:30:00 EDT, Weight Dosing Trulicity Pen 1.5 mg/0.5 mL subcutaneous solution: 1.5 mg, SubCutaneous, qWeek, # 4 EA, Refills(s) 0, [facility]acy: [facility] #[id number], 168, cm, 12/06/23 14:55:00 EDT, Height/Length Dosing, 139, kg, 12/06/23 14:55:00 EDT, Weight Dosing Ventolin HFA 90 mcg/inh Aerosol-Adpt: 2 (more content not included)... Normal [facility] Comment on above: Result Comment: Elec tronically Signed By: Walker Phillip MD\.br\Date and Time Signed: 12/23/23 12:58 EDT Main OR PACU I Recordon 12-03 Main OR PACU I Record PACU Phase I Document Type FT Summary Primary Physician: Walker Phillip MD Finalized Date/Time: 12/23/23 13:44:10 Pt. Name: CARMEN BLEDSOE/Sex: 1960 Female Med Rec #: [id number] Physician: Walker Phillip MD Financial #: [id number] Pt. Type: O Room/Bed: / Admit/Disch: 12/23/23 [...] By: Catarino Valentine RN 12/23/23 13:44 Normal [facility] Main OR Preoperative Recordo n 12-23-2023 Main OR Preoperative Record Holding Area Document Type FT Summary Primary Physician: Walker Phillip MD Finalized Date/Time: 12/23/23 10:57:22 Pt. Name: CARMEN BLEDSOE/Sex: 1960 Female Med Rec #: [id number] Physician: Walker Phillip MD Financial #: [id number] Pt. Type: O Room/Bed: / Admit/Disch: 12/23/23 [...] By: Jannet Adorno RN 12/23/23 10:57 Normal [facility] Monitor Recordon 12-23-2023 Monitor Record [id number] 1.00TIFF [facility] Nursing Narrative Noteon Nursing Narrative Note Unable to obtain accurate testing after attempt x2 RN d/t pt body habitus. Normal [facility] Patient Education - Texton 0 12-23-2023 [...] or gets worse throughout the day. Normal [facility] Progress Note-Physicianon Progress Note-Physician Patient: CARMEN BLEDSOE Age: 63 years Sex: Female : 1960 Associated Diagnoses: None Author: Zaid Benz MD Postoperative Information Postoperative disposition: Postoperative disposition: To PACU. Optimetrix number: Optimetrix number [id number]. Anesthetic utilized: General. Health Status Allergies: Allergic [...] meets criteria ( To home ). Normal [facility] Comment on above: Result Comment: Elec [...] Daily, # 90 tab(s), Refills(s) 3, Pharmacy: [facility] #[id number], 167, cm, 01/11/23 11:15:00 EDT, Height/Length Dosing, 138, kg, 01/11/23 11:15:00 EDT, Weight Dosing Alcohol wipes: Alcohol wipes, See Instructions, 100 EA, 3, Use to check BS daily dx E11.9, [facility] #[id number], Supply, 163, cm, 12/30/21 11:09:00 EDT, Height/Length Dosing, 154, kg, 12/30/21 11:09:00 EDT, Weight Dosing Crestor 40 mg Tab: 40 mg = 1 tab(s), Oral, Daily, # 90 tab(s), Refills(s) 3, [facility]acy: [facility] #[id number], 167, cm, 05/09/23 8:15:00 EST, Height/Length Dosing, 145.6, kg, 05/09/23 8:15:00 EST, Weight Dosing FLUoxetine 20 mg Cap: 40 mg = 2 cap(s), Oral, Daily, # 180 cap(s), Refills(s) 1, Pharmacy: [facility] #[id number], 167, cm, 08/10/23 14:24:00 EST, Height/Length Dosing, 151.4, kg, 08/10/23 14:24:00 EST, Weight Dosing Glucometer: Glucometer, See Instructions, 1 EA, 0, Glucometer to test BS TID and PRN dx E11.9, [facility], Supply, 170, cm, 05/27/21 8:31:00 EST, Height/Length Dosing, 157.8, kg, 05/27/21 8:31:00 EST, Weight Dosing Jardiance 10 mg oral tablet: 10 mg, Oral, Daily, # 90 tab(s), Refills(s) 2, Pharmacy: [facility] #[id number], 167, cm, 08/10/23 14:24:00 EST, Height/Length Dosing, 151.4, kg, 08/10/23 14:24:00 EST, Weight Dosing Lancets: Lancets, See Instructions, 100 EA, 3, Use to check BS daily dx E11.9, [facility] #[id number], Supply, 163, cm, 12/30/21 11:09:00 EDT, Height/Length Dosing, 154, kg, 12/30/21 11:09:00 EDT, Weight Dosing Nebulizer Machine: Nebulizer Machine, See Instructions, 1 EA, 0, Nebulizer Machine, [facility] #[id number], Supply, 168, cm, 10/11/23 14:32:00 EDT, Height/Length Dosing, 160.2, kg, 10/11/23 14:32:00 EDT, Weight Dosing Nebulizer Tubing and Mouthpiece Kit: Nebulizer Tubing and Mouthpiece Kit, See Instructions, 1 kit(s), 0, Nebulizer Tubing and Mouthpiece Kit, [facility] #48473, Supply, 168, cm, 10/11/23 14:32:00 EDT, Height/Length Dosing, 160.2, kg, 10/11/23 14:32:00 EDT, Weight Dosing Pantoprazole [address] Tab: 40 mg = 1 tab(s), Oral, Daily, # 90 tab(s), Refills(s) 3, Pharmacy: [facility] #[id number], 167, cm, 01/11/23 11:15:00 EDT, Height/Length Dosing, 138, kg, 01/11/23 11:15:00 EDT, Weight Dosing Singulair 10 mg Tab: 10 mg = 1 tab(s), Oral, qPM, # 30 tab(s), Refills(s) 2, Pharmacy: [facility], 170, cm, 10/16/19 9:09:00 EDT, Height/Length Measured, 154.3, kg, 10/16/19 9:09:00 EDT, Weight Measured Spiriva Respimat 1.25 mcg/inh inhalation aerosol: 2 puff(s), Inhalation, Daily, 3 EA, Refill(s) 3, [facility], 163, cm, 12/30/21 11:09:00 EDT, Height/Length Dosing, 154, kg, 12/30/21 11:09:00 EDT, Weight Dosing Test Strips: Test Strips, See Instructions, 100 EA, 3, Use to test BS daily, [facility] #[id number], Supply, 167.5, cm, 10/18/22 13:30:00 EDT, Height/Length Dosing, 147, kg, 10/18/22 13:30:00 EDT, Weight Dosing Trulicity Pen 1.5 mg/0.5 mL subcutaneous solution: 1.5 mg, SubCutaneous, qWeek, # 4 EA, Refills(s) 0, Pharmacy: [facility] #[id number], 168, cm, 12/06/23 14:55:00 EDT, Height/Length Dosing, 139, kg, 12/06/23 14:55:00 EDT, Weight Dosing Ventolin HFA 90 mcg/inh Aerosol-Adpt: 2 puff(s), Inhalation, q6hr for wheezing, 1 EA, Refill(s) 1, [facility] #38443, 167, cm, 09/29/22 11:37:00 EDT, Height/Length Dosing, 149.2, kg, 09/29/22 11:37:00 EDT, Weight Dosing Vitamin D3 5000 intl units oral capsule: 5,000 International_Unit = 1 cap(s), Oral, Daily, with food, # 100 cap(s), Refills(s) 1, Pharmacy: [facility] #[id number], 170, cm, 10/13/22 9:06:00 EDT, Height/Length Dosing, 149.2, kg, 09/29/22 11:37:00 EDT, Weight Dosing albuterol 0.083% Inh Rochelle 3 mL: 2.5 mg, 3 mL, Inhalation, q6hr Shortness of breath or wheezing, 100 EA, Refill(s) 1, [facility] #08400, 168, cm, 10/11/23 14:32: (more content not included)... Normal [facility] Comment on above: Result Comment: Elec tronically Signed By: Demar SAMPSON, Zaid Hooper\.br\Date and Time Signed: 12/23/23 11:24 EDT RAD - MRI Reporton RAD - MRI Report [id number]#1. 00TIFF Normal [facility] MRI LUMBAR SPINE WO CONTRAST on [...] Dwayne Ruffin MD 12/22/23 Final result Normal [facility] Insurance Correspondenceon 0 12-13-2023 Insurance Correspondence [id number]# 1.00TIFF Normal [facility] Physician Orderon 12-07-2023 Physician Order [id number]# 1.00TIFF Mracos Mag[facility] Ambulatory Visit Summaryon 0 12-06-2023 Ambulatory Visit Summary CARMEN BLEDSOE :1960 Visit Date:12/06/2023 Ambulatory Visit Instructions Your Care Team Attending Physician - Adam SAMPSON, Alirio Briggs. Primary Care Physician - Yocasta MSN, MASTER SCHEDULER-CERTIFIED CODER, Myron Hamilton Referring Physician - NONE, XXXX [...] Appointments Tuesday 10:30 AM EDT With: Where: [facility] Tuesday 12:00 PM EDT With: Where: [facility] Tuesday 10:45 AM EDT With: Marjan SAMPSON, Walker Pritchett Where: [facility] Normal [address] [place] [address]- \.br\ Tuesday 1:00 PM EST \.br\ With: Adam SAMPSON, Alirio Hooper\.br\ Where: [facility] [place]\.br\ Medications\.br\ What How Much When Why Instructions\.br [...] for choosing us for your care.\.br\ \.br\ [facility] Consent for Treatmenton 06-0 Consent for Treatment [id number]#1 .00TIFF Normal [facility] Ambulatory Visit Summaryon 0 11-25-2023 Ambulatory Visit Summary CARMEN BLEDSOE :1960 Visit Date:11/25/2023 Ambulatory Visit Instructions Your Diagnosis Benign hypertension Hepatomegaly Type 2 diabetes mellitus with morbid obesity Alcohol problem drinking Class 3 severe obesity due to excess calories with serious comorbidity in adult, Morbid (severe) obesity due to excess calories BMI 50.0-59.9, adult Your Care Team Attending Physician - Yocasta MSN, MASTER SCHEDULER-CERTIFIED CODERMyron Primary Care Physician - Yocasta MSN, MASTER SCHEDULER-CERTIFIED CODERMyron This Is Your Medications List tramadol (traMADOL [...] Adam SAMPSON, Alirio Hooper Where: [facility] [place] Tuesday 10:30 AM EDT With: Where: [facility] Tuesday 12:00 PM EDT With: Where: [facility] Tuesday 10:45 AM EDT With: Marjan SAMPSON, Walker Pritchett Where: [facility] Normal [address] [place] [address]- \.br\ You Need to Schedule the Following Appointments\.br \ Follow Up with Yocasta SMITH, MASTER SCHEDULER-Myron VILLATORO When: In 3 months\.br\ Comments:\.br\ chronic care\.br\ Where:\.br\ [address]\.br\ [place] [address]\.br\ Medications\.br\ What How Much When Why Instructions\.br \ Changed tramadol (traMADOL 50 mg Tab) 1 Tablets By Mouth Every 6 hours as needed for for pain Pickup at [facility] #77609\.br\ Unchanged albuterol (albuterol 0.083% Inh Rochelle 3 [...] or concerns \.br\ Pharmacy Information\.br\ [facility] #[id number]: [address], [place] [phone]\.br\ \.br\ What How Much When Comments\.br\ Stop [...] ? \.br\ Are exposed to hepa Magana [facility] Family Medicine Office/Clini c Noteon 11-25-2023 Family [...] smear: _ DEXA: _ Labs: 08/10/2023 at [facility] Diabetes/ prediabetes: Eye exam: _ done by _ Foot exam: 08/10/2023 done by Omari VILLATORO A1c: Hgb A1C %: 6.3 % High (08/20/22 15:02:00) Smokers/ former smokers: Low dose lung CT: _ List of Providers: Inserter: DR Ramirez Twx Operator: Dr Phillip Orthopaedics: Dr Martinez LABS Cr/eGFR: eGFR: >60 (08/05/2023) Creatinine: 0.6 mg/dL (08/10/2023) A1c: Hgb A1C %: 5.4% (08/10/2023) TSH: TSH: 4.64 mcIU/mL (08/20/22 15:02:00) Vit D: No qualifying data available. LDL: LDL Direct: 67 mg/dL (08/10/2023) Lipids: Chol: 206 mg/dL (08/10/2023) HDL: 95 mg/dL (08/10/2023) LDL Direct: 67 mg/dL (08/10/2023) Microalbumin: U Microalb: >12 mcg/mL (08/10/2023) Future Appointments [facility]y. Date: 12/06/2023 3:15 PM Scheduled Provider: Adam SAMPSON, Alirio Hooper [address] [place], [address] Fax: [phone] [address] [place] [address], [address] Phone: -- Fax: -- [address] [place], [address] Phone: -- Fax: -- [facility] Appt. Date: 12/23/2023 10:30 AM Scheduled Provider: ENDO 3 FT Phone: -- Fax: -- [facility] Appt. Date: 12/23/2023 12:00 PM Scheduled Provider: ENDO 1 FT Phone: -- Fax: -- [facility] Appt. Date: 01/13/2024 10:45 AM Scheduled Provider: Walker Phillip MD [address] [facility], [address], [address] Phone: [phone] Fax: [phone] The patient has transitioned to using a [...] relapse experience (more content not included)... Normal [facility] Comment on above: Result Comment: Elec tronically Signed By: Yocasta SMITH, MASTER SCHEDULER- Myron VILLATORO\.br\Date and Time Signed: 11/25/23 20:36 [...] to follow these instructions. Medicines ? Take gywp-gka-njayvtu and prescription medicines only as told by your health care provider. ? Do not start taking any new medicine unless your health care provider has approved. These include hmux-mdt-utitcmm medicines, vitamins, herbs, and supplements. Some of [...] provider. Document Revised: 05/19/2022 Document Reviewed: 05/19/2022 [employer] Patient Education ? 2022 [employer]. Endocrinology Type 2 Diabetes Mellitus, Self-Care, Adult [...] glucose every (more content not included)... Normal [facility] Basic Metabolic Profon 11-16 Anion gap [Moles/Vol] 10 mmol/L Normal - [facility] Comment on above: Performed By: #### B MP, BNP ####[facility] Dwm[address] [facility] [place] [address] Lab Director: Yury Caba MD BUN/CRE Ratio 20 Normal - [facility] Comment on above: Performed By: #### B MP, BNP ####[facility] Sxv[address] [facility] [place] [address] Lab Director: Yury Caba MD Calcium [Mass/Vol] 9.2 mg/dL Normal 8.6-10.4 [facility] Comment on above: Performed By: #### B MP, BNP ####[facility] [address] [place] [address] Lab Director: Yury Caba MD Chloride [Moles/Vol] 99 mmol/L Normal 98-107 [facility] Comment on above: Performed By: #### B MP, BNP ####[facility] Apb[address] [place] [address] Lab Director: Yury Caba MD CO2 [Moles/Vol] 24 mmol/L Normal 20-31 [facility] Comment on above: Performed By: #### B MP, BNP ####[facility] Tco[address]82 [place] [address] Lab Director: Yury Caba MD Creatinine [Mass/Vol] 0.7 mg/dL Normal 0.5-0.9 [facility] Comment on above: Performed By: #### B MP, BNP ####[facility] Wsg7768 [place] [address] Lab Director: Yury Caba MD GFR/1.73 sq M.predicted among non-blacks MDRD (S/P/Bld) [Vol rate/Area] mL/min/{1.73_m2} Normal >60 [facility] Comment on above: Result Comment: These [...] secretion. Performed By: #### B MP, BNP ####[facility] Xtr[address] [address] Lab Director: Yury Caba MD Glucose [Mass/Vol] 107 mg/dL High 70-99 [facility] Comment on above: Performed By: #### B MP, BNP ####[facility] Hgh[address] [facility] [place] [address] Lab Director: Yury Caba MD Potassium [Moles/Vol] 4.7 mmol/L Normal 3.7-5.3 [facility] Comment on above: Performed By: #### B MP, BNP ####[facility] Uar[address] [place] [address] lab Director: Yury Caba MD Sodium [Moles/Vol] 133 mmol/L Low 135-144 [facility] Comment on above: Performed By: #### B MP, BNP ####[facility] Olr45[address] [place] [address] lab Director: Yury Caba MD Urea nitrogen [Mass/Vol] 14 mg/dL Normal 8-23 [facility] Comment on above: Performed By: #### B MP, BNP ####[facility] Sjn7672 [place] [address] lab Director: Yury Caba MD Brain Natri. Peptideon 11-16 Natriuretic peptide B (Bld) [Mass/Vol] 164 pg/mL Normal <300 [facility] Comment on above: Result Comment: An age-independent cutoff point of 300 pg/ml has a 98% negative predictive value excluding acute heart failure. Performed By: #### B MP, BNP ####[facility] Yrv6912 [place] [address] lab Director: Yury Caba MD Outside Labson 11-17-2023 Outside Labs [id number]#1 .00TIFF Normal [facility] Consent for Treatmenton 0 Consent for Treatment [id number]#1 .00TIFF Normal [facility] Consent for Procedure/Surger yon 11-04-2023 Consent for Procedure/Surgery [id number]#1 .00TIFF Normal [facility] FL ARTHR/ASP/INJ MAJOR JT/BU RSA RT WO USon 11-04-2023 FL ARTHR/ASP/INJ MAJOR JT/BURSA RT WO US Begin Addendum #1 FLUORO DOSE: 84. 497 mGy Reference air kerma (Ka,r) Interpreted by: Casa Minor Jr., MD Signed by: Casa Minor Jr., MD 11/04/23 Edited Result - FINAL Normal [facility] FL ARTHROGRAM RIGHT HIP S AN D Ion 11-04-2023 FL ARTHROGRAM RIGHT HIP S AND I Begin Addendum #1 FLUORO DOSE: 84. 497 mGy Reference air kerma (Ka,r) Interpreted by: Casa Minor Jr., MD Signed by: Casa Minor Jr., MD 11/04/23 Edited Result - FINAL [facility] FL GUIDED NEEDLE PLACEMENTon 11-04-2023 FL GUIDED NEEDLE PLACEMENT Begin Addendum #1 FLUORO DOSE: 84. 497 mGy Reference air kerma (Ka,r) Interpreted by: Casa Minor Jr., MD Signed by: Casa Minor Jr., MD 11/04/23 Edited Result - FINAL [facility] Ambulatory Visit Summaryon 0 11-02-2023 Ambulatory Visit Summary CARMEN BLEDSOE :1960 Visit Date:11/02/2023 Ambulatory Visit Instructions Your Diagnosis Elevated LFTs Hepatomegaly History of alcohol abuse History of colon polyps Smoker Your Care Team Attending Physician - Marjan SAMPSON, Walker Pritchett Primary Care Physician - Yocasta MSN, MASTER SCHEDULER-CERTIFIED CODER, Myron Hamilton This Is Your Medications List [...] Tuesday 3:00 PM EDT With: Where: [facility] 2023 3:00 PM EDT With: Where: [facility] [place] Invalid Interpretation Code [address] [place] [address]- \.br\ Tuesday 3:15 PM EDT \.br\ With: Adam SAMPSON, Alirio Hooper\.br\ Where: [facility] [place]\.br\ Tuesday 10:30 AM EDT \.br\ With:\.br\ Where: [facility]\.br\ Tuesday 12:00 PM EDT \.br\ With:\.br\ Where: [facility]\.br\ Tuesday 10:45 AM EDT \.br\ With: Walker Phillip MD\.br\ Where: [facility] Gastroenterology Office/Clin ic Noteon 11-02-2023 Gastroenterology [...] Denies blood thinner use. liver 08/24/23 @ [facility]: IMPRESSION: Hepatomegaly and hepatic steatosis. EGD/Colon 03/17/20 @ [facility]: POSTOPERATIVE DIAGNOSES: 1. Antral gastritis. 2. [...] POLYP BIOPSY: TUBULAR ADENOMA. CBC/CMP 08/10/23 @ [facility]: RBC: (L) 3.78 MCV (H) 102.6 [...] Will get chronic liver disease panel Ordered: Egizu-3-Xsbvjyssduh KIM w/Reflex if POS Antimitochondrial Antibody, Quantitative Colonoscopy (Hospital Procedure) Comprehensive Metabolic Panel Current tobacco smoker 1034F E&M of [facility] Patient Moderate 45-59 Min 88987 EGD Endoscopy (Hospital Procedure) Ferritin Fibroscan (Hospital [...] E&M of New Patient Moderate 45-59 Min 09477 EGD Endoscopy (Hospital Procedure) 3. History of alcohol abuse (F10.11: Alcohol abuse, in remission) Ordered: Colonoscopy (Hospital Procedure) E&M of New Patient Moderate 45-59 Min 59565 EGD Endoscopy (Hospital Procedure) 4. History of colon polyps (Z86.010: Personal history of colonic polyps) Had multiple TA's 2019, repeat colonoscopy Ordered: Colonoscopy (Hospital Procedure) E&M of New Patient Moderate 45-59 Min 04989 EGD Endoscopy (Hospital Procedure) 5. Smoker (F17.200: Nicotine dependence, unspecified, uncomplicated) Consulted Ordered: Colonoscopy (Hospital Procedure) E&M of New Patient Moderate 45-59 Min 36705 EGD Endoscopy (Hospital Procedure) Follow-up No qualifying [...] Tab, 4 (more content not included)... Normal [facility] Comment on above: Result Comment: Elec tronically Signed By: Marjan SAMPSON, Walker Pritchett\.br\Date and Time Signed: 11/02/23 11:03 EDT Physician Orderon 10-28-2023 Physician Order [id number]# 1.00TIFF Normal [facility] Family Medicine Office/Clini c Noteon 10-27-2023 [...] dose lung CT: _ List of Providers: Inserter: Dr Ramirez Gastrointestinal: Dr Phillip LABS Cr/eGFR: [...] Microalb: 4.6 mcg/mL (08/20/22 15:02:00) Future Appointments [facility] Appt. Date: 11/02/2023 10:30 AM Scheduled Provider: Marjan SAMPSON, Walker Pritchett [address], [address] [facility] [address] [place], [address] Phone: [phone] Fax: [phone] [facility] Appt. Date: 11/10/2023 3:00 PM Scheduled Provider: SERGEI Yarbrough Nurse Phone: -- Fax: -- [facility] Appt. Date: 12/06/2023 3:15 PM Scheduled Provider: Adam SAMPSON, Alirio Hooper [address] [place], [address] Fax: [phone] She admitted that she relapsed on her [...] appointment with the GI doctor up at [facility] for her hepatomegaly and elevated liver. She [...] Does follow-up with Dr. Ramirez in the [place] office. Has been on her Lasix and [...] the office (more content not included)... Normal [facility] Comment on above: Result Comment: [...] screening Your Care Team Attending Physician - SRINIVAS Pereyra Tammy L. Primary Care Physician - SRINIVAS Pereyra Tammy L. This Is Your Medications List Misc Prescription [...] EDT With: Marjan SAMPSON, Walker Pritchett Where: [facility] Invalid Interpretation Code [address] [place] [address]- \.br\ Tuesday 2:40 PM EDT \.br\ With: Yocasta SMITH, MASTER SCHEDULER-CERTIFIED CODERMyron\.br\ Where: [facility] Insurance Correspondenceon 0 10-26-2023 Insurance Correspondence [id number]# 1.00TIFF Normal [facility] Patient Educationon 10-26-19 24 Patient Education Cardiovascular [...] when you have heart failure Medicines Take hfdu-kie-kegyifl and prescription medicines only as told by [...] vaccines. Pneu (more content not included)... Normal [facility] Ambulatory Visit Summaryon 0 10-25-2023 Ambulatory Visit Summary CARMEN BLEDSOE :1960 Visit Date:10/25/2023 Ambulatory Visit Instructions Your Diagnosis Benign hypertension Mixed hyperlipidemia Bilateral leg edema Your Care Team Attending Physician - Adam SAMPSON, Alirio Briggs. Primary Care Physician - Yocasta MSN, MASTER SCHEDULER-CERTIFIED CODER, Myron Hamilton Referring Physician - NONE, XXXX [...] Tuesday 1:20 PM EDT With: Yocasta SMITH, MASTER SCHEDULER-CERTIFIED CODER, Myron Hamilton [facility] Interpretation Code [address] [address]- \.br\ 2023 3:00 PM EDT \.br\ With:\.br\ [facility] Consent for Treatmenton 10-03 Consent for Treatment [id number] .00TIFF Normal [facility] Heart and Vascular Office/Cl inic Noteon 10-25-2023 Heart and Vascular Office/Clinic Note Chief Complaint B/L EDEMA History of Present Illness 62-year-old female with history of bilateral lower extremity edema and diastolic heart failure as well as obesity, tobacco smoking, hypertension, hyperlipidemia. Negative stress test last year. Recently was having increased shortness of breath and lower extremity swelling went to [facility] and was told to take extra furosemide [...] refills Vi (more content not included)... Normal [facility] Comment on above: Result Comment: Elec [...] Care Team Attending Physician - Yocasta MSN, MASTER SCHEDULER-Myron VILLATORO Primary Care Physician - Yocasta MSN, MASTER SCHEDULER-Myron VILLATORO This Is Your Medications List Misc [...] Adam SAMPSON, Alirio Hooper Where: [facility] [place] Tuesday 1:20 PM EDT With: Yocasta SMITH, DARLEEN-Myron VILLATORO Where: [facility] [address] [place] [address]- \.br\ You Need to Schedule the Following Appointments\.br \ Follow Up with Yocasta SMITH, MASTER SCHEDULER-Myron VILLATORO When: In 2 weeks\.br\ Comments:\.br\ chronic care\.br\ Where:\.br\ [facility] [address]\ [place] [address]\.br\ Medications\.br\ What How Much When Why Instructions\.br \ New albuterol (albuterol 0.083% Inh Rochelle 3 mL) 3 Milliliter Inhalation Every 6 hours as needed for Shortness of breath or wheezing Refills: 1 Pickup at [facility] #12263\.br\ Changed dulaglutide (Trulicity Pen 1.5 mg/ 0.5 mL subcutaneous solution) 1.5 Milligram Subcutaneous Every week Pickup at [facility] #78610\.br\ Changed spironolactone (spironolactone 25 mg Tab) 1 Tablets By Mouth Every day Duration: 90 Days Pickup at [facility] #22403\.br\ Unchanged Misc Prescription (Nebulizer Machine) See instructions Moderate persistent asthma Nebulizer Machine Pickup at [facility] #71202\.br\ Unchanged Misc Prescription (Nebulizer Tubing and Mouthpiece Kit) See instructions Moderate persistent asthma Nebulizer Tubing and Mouthpiece Kit Pickup at [facility] #74160\.br\ Unchanged trazodone (traZODONE 50 mg Tab) 1 Tablets By Mouth Once a day (at bedtime) Pickup at [facility] #10564\.br\ Unchanged albuterol (Ventolin HFA 90 mcg/ inh [...] or concerns \.br\ Pharmacy Information\.br\ [facility] #10626: [address], [place] [phone]\.br\ \.br\ What How Much When Comments\.br\ Stop [...] personalized treatment goals for you. Generally, the [facility] Family Medicine Office/Clini c Hemaon 10-11-2023 Family Medicine Office/Clinic Note Chief Complaint Pt presents for [facility] F/U 10/06/23 for difficulty breathing. Valentino leg swelling HPI Staff ER followup: Hospital: [facility] Visit date:FGDL7T 10/06/23 Symptoms the patient presented with: difficulty breathing Symptom onset/injury onset: Testing Performed: New medications: New specialist involved Therapy ordered: Next appointment date: Current concerns: Pt C/O valentino leg swelling. History of Present Illness a 62-year-old female presenting today for an ER visit due to difficulty breathing. She is accompanied by her sister. She was recently at [facility] for difficulty breathing. She was found to [...] a referral from me to gastrointestinal at [facility] for further evaluation of her hepatomegaly with [...] failure) The patient was recently admitted to [facility] on 10/06/2023 due to respiratory distress, which led to a diagnosis of heart failure. She exhausted her spironolactone supply and was subsequently advised to double her Lasix dosage, with the final dose scheduled for today. We will send her a refill for her spironolactone. 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 Given her recent weight gain, it is evident that fluid accumulation results in a resurgence of her condition. She is also scheduled to consult with a director school of nursing for an enlarged liver. I am concerned [...] as pres (more content not included)... Normal [facility] Comment on above: Result Comment: Elec tronically Signed By: Yocasta SMITH, MASTER SCHEDULER- Myron VILLATORO\.br\Date and Time Signed: 10/11/23 20:33 [...] these instructions at home: Medicines ? Take bmee-ojf-ynedmfh and prescription medicines only as told by your health care provider. ? Do not stop taking your medicines or change the amount you take. If you are having problems or side effects from your medicines, talk to your health care provider. ? If you are having difficulty paying for your medicines, contact a transition social worker or your clinic. There are [...] daily tasks (more content not included)... Normal [facility] ED Note-Physicianon 10-07-19 ED Note-Physician [id number] Normal [facility] Basic Metabolic Profon 10-05 Anion gap [Moles/Vol] 12 mmol/L Normal 9-17 [facility] Comment on above: Performed By: #### B UNION ORGANISER, DIME, BMP, TROPI, CDP #### [facility] [address] [place] [address] Sales Merchandiser: Yury Caba MD Calcium [Mass/Vol] 9.0 mg/dL Normal 8.6-10.4 [facility] Comment on above: Performed By: #### B UNION ORGANISER, DIME, BMP, TROPI, CDP #### [facility] [address] [place] [phone] Sales Merchandiser: Yury Caba MD Chloride [Moles/Vol] 100 mmol/L Normal 98-107 [facility] Comment on above: Performed By: #### B UNION ORGANISER, DIME, BMP, TROPI, CDP #### [facility] [address] [place] [address] Sales Merchandiser: Yury Caba MD CO2 [Moles/Vol] 24 mmol/L Normal 20-31 [facility] Comment on above: Performed By: #### B UNION ORGANISER, DIME, BMP, TROPI, CDP #### [facility] [address] [place] [address] Sales Merchandiser: Yury Caba MD Creatinine [Mass/Vol] 0.5 mg/dL Normal 0.5-0.9 [facility] Comment on above: Performed By: #### B UNION ORGANISER, DIME, BMP, TROPI, CDP #### [facility] [address] [phone] Sales Merchandiser: Yury Caba MD GFR/1.73 sq M.predicted among non-blacks MDRD (S/P/Bld) [Vol rate/Area] mL/min/{1.73_m2} Normal >60 [facility] Comment on above: Result Comment: These [...] renal tubular secretion. Performed By: #### B DAYANA CEJA BMP, TROPI, CDP #### [facility] [address] [place] [address] Sales Merchandiser: Yury Caba MD Glucose [Mass/Vol] 122 mg/dL High 70-99 [facility] Comment on above: Performed By: #### B MARCIAL, DIME BMP, TROPI, CDP #### [facility] [address] [place] [address] Sales Merchandiser: Yury Caba MD Potassium [Moles/Vol] 3.4 mmol/L Low 3.7-5.3 [facility] Comment on above: Performed By: #### B DAYANA CEJA BMP, TROPI, CDP #### [facility] [address] [place] [address] Sales Merchandiser: Yury Caba MD Sodium [Moles/Vol] 136 mmol/L Normal 135-144 [facility] Comment on above: Performed By: #### B DAYANA CEJA BMP, TROPI, CDP #### [facility] [address] [place] [address] Sales Merchandiser: Yury Caba MD Urea nitrogen [Mass/Vol] 14 mg/dL Normal 8-23 [facility] Comment on above: Performed By: #### B MARCIAL, DIME, BMP, TROPI, CDP #### [facility] [address] [place] [address] Sales Merchandiser: Yury Caba MD Brain Natri. Peptideon 10-05 Natriuretic peptide B (Bld) [Mass/Vol] 3161 pg/mL High <300 [facility] Comment on above: Result Comment: An age-independent cutoff point of 300 pg/ml has a 98% negative predictive value excluding acute heart failure. Performed By: #### B ADRIEL CEJAE BMP, TROPI, CDP #### [facility] [address] [phone] Sales Merchandiser: Yury Caba MD CBC with Diffon 10-06-2023 Abs. Basophil 0.02 k/uL Normal 0.00-0.20 [facility] Comment on above: Performed By: #### B UNION ORGANISER, DIME, BMP, TROPI, CDP #### [facility] [address] [place] [address] Sales Merchandiser: Yury Caba MD Abs.Imm.Granulocyte 0.02 k/uL Normal 0.00-0.30 [facility] Comment on above: Performed By: #### B UNION ORGANISER, DIME, BMP, TROPI, CDP #### [facility] [address] [place] [address] Sales Merchandiser: Yury Caba MD Abs.Neutrophil (Seg) 4.75 k/uL Normal 2.5-7.0 [facility] Comment on above: Performed By: #### B UNION ORGANISER, DIME, BMP, TROPI, CDP #### [facility] [address] [place] [address] Sales Merchandiser: Yury Caba MD Basophils/100 WBC (Bld) 0 % Normal 0-2 [facility] Comment on above: Performed By: #### B UNION ORGANISER, DIME, BMP, TROPI, CDP #### [facility] [address] [place] [address] Sales Merchandiser: Yury Caba MD Eosinophils (Bld) [#/Vol] 0.03 10*3/uL Normal 0.00-0.40 [facility] Comment on above: Performed By: #### B UNION ORGANISER, DIME, BMP, TROPI, CDP #### [facility] [address] [phone] Sales Merchandiser: Yury Caba MD Eosinophils/100 WBC (Bld) 1 % Normal 0-5 [facility] Comment on above: Performed By: #### B UNION ORGANISER, DIME, BMP, TROPI, CDP #### [facility] [address] [place], [place] [phone] Sales Merchandiser: Yury Caba MD Erythrocyte distribution width (RBC) [Ratio] 13.8 % Normal 12.1-15.2 [facility] Comment on above: Performed By: #### B UNION ORGANISER, DIME, BMP, TROPI, CDP #### [facility] [address] [place] [address] Sales Merchandiser: Yury Caba MD Hematocrit (Bld) [Volume fraction] 36.4 % Normal 36.0-46.0 [facility] Comment on above: Performed By: #### B UNION ORGANISER, DIME, BMP, TROPI, CDP #### [facility] [address] [place] [address] Sales Merchandiser: Yury Caba MD Hemoglobin (Bld) [Mass/Vol] 12.5 g/dL Normal 12.0-16.0 [facility] Comment on above: Performed By: #### B UNION ORGANISER, DIME, BMP, TROPI, CDP #### [facility] [address] [place], [place] [phone] Sales Merchandiser: Yury Caba MD Immature granulocytes/100 WBC (Bld) 0 % Normal 0-5 [facility] Comment on above: Performed By: #### B UNION ORGANISER, DIME, BMP, TROPI, CDP #### [facility] [address] [phone] Sales Merchandiser: Yury Caba MD Lymphocytes (Bld) [#/Vol] 0.54 10*3/uL Low 1.00-4.80 [facility] Comment on above: Performed By: #### B UNION ORGANISER, DIME, BMP, TROPI, CDP #### [facility] [address] [phone] Sales Merchandiser: Yury Caba MD Lymphocytes/100 WBC (Bld) 9 % Low 15-40 [facility] Comment on above: Performed By: #### B UNION ORGANISER, DIME, BMP, TROPI, CDP #### [facility] [address] [place] [address] Sales Merchandiser: Yury Caba MD MCH (RBC) [Entitic mass] 34.1 pg High 26.0-34.0 [facility] Comment on above: Performed By: #### B UNION ORGANISER, DIME, BMP, TROPI, CDP #### [facility] [address] [place] [address] Sales Merchandiser: Yury Caba MD MCHC (RBC) [Mass/Vol] 34.3 g/dL Normal 31.0-37.0 [facility] Comment on above: Performed By: #### B UNION ORGANISER, DIME, BMP, TROPI, CDP #### [facility] [address] [place] [address] Sales Merchandiser: Yury Caba MD MCV (RBC) [Entitic vol] 99.2 fL Normal 80.0-100.0 [facility] Comment on above: Performed By: #### B UNION ORGANISER, DIME, BMP, TROPI, CDP #### [facility] [address] [place] [address] Sales Merchandiser: Yury Caba MD Monocytes (Bld) [#/Vol] 0.47 10*3/uL Normal 0.00-1.00 [facility] Comment on above: Performed By: #### B UNION ORGANISER, DIME, BMP, TROPI, CDP #### [facility] [address] [place] [address] Sales Merchandiser: Yury Caba MD Monocytes/100 WBC (Bld) 8 % Normal 4-8 [facility] Comment on above: Performed By: #### B UNION ORGANISER, DIME, BMP, TROPI, CDP #### [facility] [address] [place] [address] [phone] Sales Merchandiser: Yury Caba MD Neutrophil (Seg) 82 % High 47-75 [facility] Comment on above: Performed By: #### B UNION ORGANISER, DIME, BMP, TROPI, CDP #### [facility] [address] [place] [address] [phone] Sales Merchandiser: Yury Caba MD Platelet mean volume (Bld) [Entitic vol] 9.0 fL Normal 6.0-12.0 [facility] Comment on above: Performed By: #### B UNION ORGANISER, DIME, BMP, TROPI, CDP #### [facility] [address] [place], [place] [phone] Sales Merchandiser: Yury Caba MD Platelets (Bld) [#/Vol] 176 10*3/uL Normal 140-450 [facility] Comment on above: Performed By: #### B UNION ORGANISER, DIME, BMP, TROPI, CDP #### [facility] [address] [place] [address] [phone] Sales Merchandiser: Yury Caba MD RBC (Bld) [#/Vol] 3.67 10*6/uL Low 4.00-5.20 [facility] Comment on above: Performed By: #### B UNION ORGANISER, DIME, BMP, TROPI, CDP #### [facility] [address] [place], [place] [phone] Sales Merchandiser: Yury Caba MD WBC (Bld) [#/Vol] 5.8 10*3/uL Normal 3.5-11.0 [facility] Comment on above: Performed By: #### B UNION ORGANISER, DIME, BMP, TROPI, CDP #### [facility] [address] [place], [place] [phone] Sales Merchandiser: Yury Caba MD D-Dimer Teston 10-06-2023 D-Dimer Test 0.68 ug/mL FEU High 0.00-0.59 [facility] Comment on above: Result Comment: When combined [...] with distal DVT. Performed By: #### B MARCIAL, DALY ANNE, TROPI, CDP #### [facility] [address] [place] [address] Sales Merchandiser: Yury Caba MD RAD - MISCon 10-06-2023 RAD - MISC [id number] .00TIFF Normal [facility] Troponinon 10-06-2023 Troponin, High Sens 27 ng/L High 0-14 [facility] Comment on above: Result Comment: High Sensitivity Troponin values cannot be compared with other Troponin methodologies. Performed By: #### B MARCIAL, DALY ANNE, TROPI, CDP #### [facility] [address] [place] [address] Sales Merchandiser: Yury Caba MD XR CHEST (2 VW)on 10-06-2023 XR CHEST (2 VW) EXAM: XR CHEST (2 VW ) HISTORY: Shortness of breath COMPARISON: None. IMPRESSION: FINDINGS/IMPRESSION: 1. Shallow breath with clear lungs. 2. Mild cardiomegaly. Interpreted by: Casa Minor Jr., MD Signed by: Casa Minor Jr., MD 10/06/23 Final result Normal [facility] US LIVERon 08-24-2023 US LIVER EXAMINATION: [...] Braulio Crawley DO 08/24/23 Final result Normal [facility] Hemoglobin A1Con 08-11-2023 Glucose [Mass/Vol] 108 mg/dL Normal [facility] Comment on above: Result Comment: The ADA and AACC recommend providing the estimated average glucose result to permit better patient understanding of their HBA1c result. Performed By: #### G LYHGB, LIPR, URNMAB ####[facility] [address] [place] [address] Lab Director: Agusto Ferrell MD#### DYLAN ANNE, CP, ZFAST ####[facility] [address] [place], [place] [phone] lab Director: Yury Caba MD HbA1c (Bld) [Mass fraction] 5.4 % Normal 4.0-6.0 [facility] Comment on above: Performed By: #### G LYHGB, LIPR, URNMAB ####[facility] [address] [place] [address] Lab Director: Agusto Ferrell MD#### DYLAN ANNE CP, ZFAST ####[facility] [address] [place], [place] [phone] lab Director: Yury Caba MD Lipid Panelon 08-11-2023 Cholesterol [Mass/Vol] 206 mg/dL High NINF - 200 mg/dL [facility] Comment on above: Cholesterol Guidelines: <200 Desirable 200-240 Borderline >240 Undesirable Cholesterol in HDL [Mass/Vol] 95 mg/dL 40 - PINF mg/dL [facility] Comment on above: HDL Guidelines: <40 Undesirable 40-59 Borderline >59 Desirable Cholesterol in LDL [Mass/Vol] 67 mg/dL 0 - 130 mg/dL [facility] Comment on above: LDL Guidelines: <100 Desirable 100-129 Near to/above Desirable 130-159 Borderline >159 Undesirable Direct (measured) LDL and calculated LDL are not interchangeable tests. Cholesterol.total/Ch olesterol in HDL [Mass ratio] 2.2 {ratio} NINF - 5 [facility] Interpretation and review of laboratory results Abnormal [facility] Triglyceride [Mass/Vol] 221 mg/dL High NINF - 150 mg/dL [facility] Comment on above: Triglyceride Guidelines: <150 Desirable 150-199 Borderline 200-499 High >499 Very high Based on AHA Guidelines for fasting triglyceride, April 2012. [facility] Lipid Profileon 08-11-2023 Cholesterol [Mass/Vol] 206 mg/dL High <200 [facility] Comment on above: Result Comment: Cholesterol Guidelines: <200 Desirable 200-240 Borderline >240 Undesirable Performed By: #### G LYHGB, LIPR, URNMAB ####[facility] [address] [place], [place] [phone] Lab Director: Agusto Ferrell MD#### DYLAN ANNE CP, [place] ####[facility] [address] [place], [place] [phone] lab Director: Yury Caba MD Cholesterol in HDL [Mass/Vol] 95 mg/dL Normal >40 [facility] Comment on above: Result Comment: HDL Guidelines: <40 Undesirable 40-59 Borderline >59 Desirable Performed By: #### G LYHGB, LIPR, URNMAB ####[facility] [address] [place] [address] Lab Director: Agusto Ferrell MD#### DYLAN ANNE, CP, ZFAST ####[facility] [address] [place] [address] Lab Director: Yury Caba MD Cholesterol in LDL [Mass/Vol] 67 mg/dL Normal 0-130 [facility] Comment on above: Result Comment: LDL Guidelines: <100 Desirable 100-129 Near to/above Desirable 130-159 Borderline >159 Undesirable Direct (measured) LDL and calculated LDL are not interchangeable tests. Performed By: #### G LYHGB, LIPR, URNMAB ####[address] [place] [address] Lab Director: Agusto Ferrell MD#### DYLAN ANNE, CP, ZFAST ####[facility] [address] [place] [address] Lab Director: Yury Caba MD Cholesterol.total/Ch olesterol in HDL [Mass ratio] 2.2 {ratio} Normal <5 [facility] Comment on above: Performed By: #### G LYHGB, LIPR, URNMAB ####[facility] [address] [place] [address] Lab Director: Agusto Ferrell MD#### DYLAN ANNE, CP, ZFAST ####[facility] [address] [place] [address] Lab Director: Yury Caba MD Triglyceride [Mass/Vol] 221 mg/dL High <150 [facility] Comment on above: Result Comment: Triglyceride Guidelines: <150 Desirable 150-199 Borderline 200-499 High >499 Very high Based on AHA Guidelines for fasting triglyceride, April 2012. Performed By: #### G LYHGB, LIPR, URNMAB ####[facility] [address] [place], [place] [phone] Director: Agusto Ferrell MD#### DIME, CDP, CP, ZFAST ####[facility] [address] [place], [place] [phone] Director: Yury Caba MD Microalb.,Random Uron 2023 Creatinine [Mass/Vol] 45.3 mg/dL Normal 28.0-217.0 [facility] Comment on above: Performed By: #### G LYHGB, LIPR, URNMAB ####[address] [place], [place] [phone] Director: Agusto Ferrell MD#### DIME, CDP, CP, ZFAST ####[facility] [address] [place], [place] [address])[phone] Director: Yury Caba MD Microalb/Creat Ratio Can not be calculated Normal <25 [facility] Comment on above: Performed By: #### G LYHGB, LIPR, URNMAB ####[facility] [address] [place], [place] [phone] Director: Agusto Ferrell MD#### DIME, CDP, CP, ZFAST ####[facility] [address] [place], [place] [phone] Director: Yury Caba MD Microalbumin conc. <12 Normal <21 [facility] Comment on above: Performed By: #### G LYHGB, LIPR, URNMAB ####[facility] [address] [place], [place] [phone] Director: Agusto Ferrell MD#### DIME, CDP, CP, ZFAST ####[facility] [address] [place], [place] [phone] Director: Yury Caba MD Microalbumin, Uron Albumin DL <= 20 mg/L (U) [Mass/Vol] mg/L NINF - 21 mg/L [facility] Albumin/Creatinine DL <= 20 mg/L (U) [Ratio] Can not be calculated [facility] Creatinine (U) [Mass/Vol] 45.3 mg/dL 28.0 - 217.0 mg/dL [facility] XR HIP 2-3 VW W PELVIS RIGHT [...] Zaid Romero MD 08/11/23 Final result Normal [facility] XR Pelvis and Hip - right 2 Viewson 08-11-2023 Moderate degenerative joint space narrowing involves right hip without an acute osseous abnormality identified. [facility]IS CONSOLIDATED EXAM: XR HIP 2-3 VW W [...] shows no fracture or stress injury. [facility] CONSOLID[facility] Zaid Romero MD - 08/11/2023 [...] hip without an acute osseous abnormality identified. [facility] Ophis Vape XR Pelvis and Hip - right 2 ViewsOrdered By: Zaid Romero on 08-11-2023 [facility] Work Phone: CBC with Auto Differentialon 08-10-2023 Basophils (Bld) [#/Vol] 0.03 10*3/uL [facility] Basophils/100 WBC (Bld) 1 % 0 - 2 % [facility] Eosinophils (Bld) [#/Vol] 0.03 10*3/uL [facility] Eosinophils/100 WBC (Bld) 1 % 0 - 5 % [facility] Erythrocyte distribution width (RBC) [Ratio] 14.6 % 12.1 - 15.2 % [facility] Hematocrit (Bld) [Volume fraction] 38.8 % 36.0 - 46.0 % [facility] Hemoglobin (Bld) [Mass/Vol] 12.8 g/dL 12.0 - 16.0 g/dL [facility] Immature granulocytes (Bld) [#/Vol] 0.01 10*3/uL [facility] Immature granulocytes/100 WBC (Bld) 0 % 0 - 5 % [facility] Interpretation and review of laboratory results Abnormal [facility] Lymphocytes/100 WBC (Bld) 22 % 15 - 40 % [facility] Lymphocytes/100 WBC (Bld) 0.98 % Low [facility] MCH (RBC) [Entitic mass] 33.9 pg 26.0 - 34.0 pg [facility] MCHC (RBC) [Mass/Vol] 33.0 g/dL 31.0 - 37.0 g/dL [facility] MCV (RBC) [Entitic vol] 102.6 fL High 80.0 - 100.0 fL [facility] Monocytes/100 WBC (Bld) 8 % 4 - 8 % [facility] Monocytes/100 WBC (Bld) 0.34 % [facility] Neutrophils/100 WBC (Bld) 68 % 47 - 75 % [facility] Platelet mean volume (Bld) [Entitic vol] 9.0 fL 6.0 - 12.0 fL [facility] Platelets (Bld) [#/Vol] 192 10*3/uL [facility] RBC (Bld) [#/Vol] 3.78 10*6/uL Low 4.00 - 5.20 m/uL [facility] Segmented neutrophils/100 WBC (Bld) 2.99 % [facility] WBC other (Bld) [#/Vol] 4.4 [facility] CBC with Diffon 08-10-2023 Abs. Basophil 0.03 k/uL Normal 0.00-0.20 [facility] Comment on above: Performed By: #### G LYHGB, LIPR, URNMAB ####[facility] [address] [place], [place] [address])[phone] Director: Agusto Ferrell MD#### DYLAN ANNE, CP, ZFAST ####[facility] [address] [place] [phone] Lab Director: Yury Caba MD Abs.Imm.Granulocyte 0.01 k/uL Normal 0.00-0.30 [facility] Comment on above: Performed By: #### G LYHGB, LIPR, URNMAB ####[facility] [address] [place] [address] Lab Director: Agusto Ferrell MD#### DYLAN ANNE, CP, ZFAST ####[facility] [address] [place] [phone] Lab Director: Yury Caba MD Abs.Neutrophil (Seg) 2.99 k/uL Normal 2.5-7.0 [facility] Comment on above: Performed By: #### G LYHGB, LIPR, URNMAB ####[facility] [address] [place] [phone] Lab Director: Agusto Ferrell MD#### DIME, CDP, CP, ZFAST ####[facility] [address] [place] [address] Lab Director: Yury Caba MD Basophils/100 WBC (Bld) 1 % Normal 0-2 [facility] Comment on above: Performed By: #### G LYHGB, LIPR, URNMAB ####[facility] [address] [address] [place] [address] Lab Director: Agusto Ferrell MD#### DIME, CDP, CP, ZFAST ####[facility] [address] [place] [address] Lab Director: Yury Caba MD Eosinophils (Bld) [#/Vol] 0.03 10*3/uL Normal 0.00-0.40 [facility] Comment on above: Performed By: #### G LYHGB, LIPR, URNMAB ####[address] [place] [address] Lab Director: Agusto Ferrell MD#### DIME, CDP, CP, ZFAST ####[facility] [address] [place] [address] Lab Director: Yury Caba MD Eosinophils/100 WBC (Bld) 1 % Normal 0-5 [facility] Comment on above: Performed By: #### G LYHGB, LIPR, URNMAB ####[facility] [address] [place] [address] Lab Director: Agusto Ferrell MD#### DIME, CDP, CP, ZFAST ####[facility] [address] [place] [address] Lab Director: Yury Caba MD Erythrocyte distribution width (RBC) [Ratio] 14.6 % Normal 12.1-15.2 [facility] Comment on above: Performed By: #### G LYHGB, LIPR, URNMAB ####[facility] [address] [place] [address] Lab Director: Agusto Ferrell MD#### DIME, CDP, CP, ZFAST ####[facility] [address] [place] [address] Lab Director: Yury Caba MD Hematocrit (Bld) [Volume fraction] 38.8 % Normal 36.0-46.0 [facility] Comment on above: Performed By: #### G LYHGB, LIPR, URNMAB ####[address] [address] Lab Director: Agusto Ferrell MD#### DIME, CDP, CP, ZFAST ####[facility] [address] [place] [address] Lab Director: Yury Caba MD Hemoglobin (Bld) [Mass/Vol] 12.8 g/dL Normal 12.0-16.0 [facility] Comment on above: Performed By: #### G LYHGB, LIPR, URNMAB ####[address] [address] Lab Director: Agusto Ferrell MD#### DIME, CDP, CP, ZFAST ####[facility] [address] [place] [phone] Lab Director: Yury Caba MD Immature granulocytes/100 WBC (Bld) 0 % Normal 0-5 [facility] Comment on above: Performed By: #### G LYHGB, LIPR, URNMAB ####[address] [place] [address] Lab Director: Agusto Ferrell MD#### DIME, CDP, CP, ZFAST ####[facility] [address] [place] [address]([facility])[phone] Director: Yury Caba MD Lymphocytes (Bld) [#/Vol] 0.98 10*3/uL Low 1.00-4.80 [facility] Comment on above: Performed By: #### G LYHGB, LIPR, URNMAB ####[facility] [address] [place], [place] [phone] Lab Director: Agusto Ferrell MD#### DIME, CDP, CP, ZFAST ####[facility] [address] [place] [address] Lab Director: Yury Caba MD Lymphocytes/100 WBC (Bld) 22 % Normal 15-40 [facility] Comment on above: Performed By: #### G LYHGB, LIPR, URNMAB ####[address] [place], [place] [phone] Lab Director: Agusto Ferrell MD#### DIME, CDP, CP, ZFAST ####[facility] [address] [place] [address] Lab Director: Yury Caba MD MCH (RBC) [Entitic mass] 33.9 pg Normal 26.0-34.0 [facility] Comment on above: Performed By: #### G LYHGB, LIPR, URNMAB ####[facility] [address] [place] [address] Lab Director: Agusto Ferrell MD#### DIME, CDP, CP, ZFAST ####[facility] [address] [place] [address] Lab Director: Yury Caba MD MCHC (RBC) [Mass/Vol] 33.0 g/dL Normal 31.0-37.0 [facility] Comment on above: Performed By: #### G LYHGB, LIPR, URNMAB ####[address] [phone] Lab Director: Agusto Ferrell MD#### DIMDarlene, DYLAN, CP, ZFAST ####[facility] [address] [place] [address] Lab Director: Yury Caba MD MCV (RBC) [Entitic vol] 102.6 fL High 80.0-100.0 [facility] Comment on above: Performed By: #### G LYHGB, LIPR, URNMAB ####[facility] [address] [place] [address] Lab Director: Agusto Ferrell MD#### DAYANA, DYLAN, CP, ZFAST ####[facility] [address] [place] [address] Lab Director: Yury Caba MD Monocytes (Bld) [#/Vol] 0.34 10*3/uL Normal 0.00-1.00 [facility] Comment on above: Performed By: #### G LYHGB, LIPR, URNMAB ####[facility] [address] [place] [address] Lab Director: Agusto Ferrell MD#### DIMDarlene, CDP, CP, ZFAST ####[facility] [address] [place], [place] [phone] Lab Director: Yury Caba MD Monocytes/100 WBC (Bld) 8 % Normal 4-8 [facility] Comment on above: Performed By: #### G LYHGB, LIPR, URNMAB ####[facility] [address] [place] [address] Lab Director: Agusto Ferrell MD#### DIME, CDP, CP, ZFAST ####[facility] [address] [place] [address] Lab Director: Yury Caba MD Neutrophil (Seg) 68 % Normal 47-75 [facility] Comment on above: Performed By: #### G LYHGB, LIPR, URNMAB ####[facility] [address] [place], [place] [phone] Director: Agusto Ferrell MD#### DIME, CDP, CP, ZFAST ####[facility] [address] [place], [place] [phone] Director: Yury Caba MD Platelet mean volume (Bld) [Entitic vol] 9.0 fL Normal 6.0-12.0 [facility] Comment on above: Performed By: #### G LYHGB, LIPR, URNMAB ####[address] [phone] Director: Agusto Ferrell MD#### DIME, CDP, CP, ZFAST ####[facility] [address] [place] [address]([facility])[phone] Director: Yury Caba MD Platelets (Bld) [#/Vol] 192 10*3/uL Normal 140-450 [facility] Comment on above: Performed By: #### G LYHGB, LIPR, URNMAB ####[address] [address] Lab Director: Agusto Ferrell MD#### DIME, CDP, CP, ZFAST ####[facility] [id number] [place] [address] Lab Director: Yury Caba MD RBC (Bld) [#/Vol] 3.78 10*6/uL Low 4.00-5.20 [facility] Comment on above: Performed By: #### G LYHGB, LIPR, URNMAB ####[address] [place] [address] Lab Director: Agusto Ferrell MD#### DIME, CDP, CP, ZFAST ####[facility] [address] [place], [place] [phone] Director: Yury Caba MD WBC (Bld) [#/Vol] 4.4 10*3/uL Normal 3.5-11.0 [facility] Comment on above: Performed By: #### G LYHGB, LIPR, URNMAB ####[facility] [address] [place], [place] [phone])[phone] Director: Agusto Ferrell MD#### DYLAN ANNE, CP, ZFAST ####[facility] [address] [place], [place] [phone] Director: Yury Caba MD Comp Metabolic Profon 2023 Albumin [Mass/Vol] 4.3 g/dL Normal 3.5-5.2 [facility] Comment on above: Performed By: #### G LYHGB, LIPR, URNMAB ####[facility] [place] [place], [place] [phone] Director: Agusto Ferrell MD#### DYLAN ANNE, CP, ZFAST ####[facility] [address] [place], [place] [phone] Director: Yury Caba MD Alkaline Phos 169 U/L High 35-104 [facility] Comment on above: Performed By: #### G LYHGB, LIPR, URNMAB ####[facility] [address] [place], [place] [phone])[phone] Director: Agusto Ferrell MD#### DYLAN ANNE, CP, ZFAST ####[facility] [address] [place], [place] [phone] Director: Yury Caba MD ALT [Catalytic activity/Vol] 84 U/L High 5-33 [facility] Comment on above: Performed By: #### G LYHGB, LIPR, URNMAB ####[facility] [address] [place] [address] Lab Director: Agusto Ferrell MD#### DYLAN ANNE, CP, ZFAST ####[facility] [address] [place] [address] Lab Director: Yury Caba MD Anion gap [Moles/Vol] 13 mmol/L Normal 9-17 [facility] Comment on above: Performed By: #### G LYHGB, LIPR, URNMAB ####[facility] [address] [place] [address] Lab Director: Agusto Ferrell MD#### DYLAN ANNE, TAINA, ZFAST ####[facility] [address] [place] [address] Lab Director: Yury Caba MD AST [Catalytic activity/Vol] 83 U/L High <32 [facility] Comment on above: Performed By: #### G LYHGB, LIPR, URNMAB ####[facility] [address] [place] [address] Lab Director: Agusto Ferrell MD#### DYLAN ANNE, CP, ZFAST ####[facility] [address] [place] [address] Lab Director: Yury Caba MD Bilirubin [Mass/Vol] 0.4 mg/dL Normal 0.3-1.2 [facility] Comment on above: Performed By: #### G LYHGB, LIPR, URNMAB ####[facility] [address] [place] [address] Lab Director: Agusto Ferrell MD#### DYLAN ANNE, CP, ZFAST ####[facility] [address]km[address] [place] [address] Lab Director: Yury Caba MD BUN/CRE Ratio 17 Normal 9-20 [facility] Comment on above: Performed By: #### G LYHGB, LIPR, URNMAB ####[facility] [address] [place] [address] Lab Director: Agusto Ferrell MD#### DIME, CDP, CP, ZFAST ####[facility] [address] [place] [address] Lab Director: Yury Caba MD Calcium [Mass/Vol] 9.3 mg/dL Normal 8.6-10.4 [facility] Comment on above: Performed By: #### G LYHGB, LIPR, URNMAB ####[address] [place] [address] Lab Director: Agusto Ferrell MD#### DIME, CDP, CP, ZFAST ####[facility] [address] [place] [address] Lab Director: Yury Caba MD Chloride [Moles/Vol] 98 mmol/L Normal 98-107 [facility] Comment on above: Performed By: #### G LYHGB, LIPR, URNMAB ####[address] [place] [address] Lab Director: Agusto Ferrell MD#### DIME, CDP, CP, ZFAST ####[facility] [address] [place] [address] Lab Director: Yury Caba MD CO2 [Moles/Vol] 26 mmol/L Normal 20-31 [facility] Comment on above: Performed By: #### G LYHGB, LIPR, URNMAB ####[facility] [address] [place] [place] [address] Lab Director: Agusto Ferrell MD#### DIME, CDP, CP, ZFAST ####[facility] [address] [place], [place] [phone] lab Director: Yury Caba MD Creatinine [Mass/Vol] 0.6 mg/dL Normal 0.5-0.9 [facility] Comment on above: Performed By: #### G LYJAME LIPR, URNMAB ####[facility] [address] [place], [place] [phone] Lab Director: Agusto Ferrell MD#### DYLAN ANNE CP, ZFAST ####[facility] [address] [place] [address] lab Director: Yury Caba MD GFR/1.73 sq M.predicted among non-blacks MDRD (S/P/Bld) [Vol rate/Area] mL/min/{1.73_m2} Normal >60 [facility] Comment on above: Result Comment: These [...] renal tubular secretion. Performed By: #### G LYRAQUEL KILGORER, URNMAB ####[facility] [address] [place] [place], [place] [phone] Lab Director: Agusto Ferrell MD#### DYLAN ANNE CP, ZFAST ####[facility] [address] [place], [place] [phone] Lab Director: Yury Caba MD Glucose [Mass/Vol] 91 mg/dL Normal 70-99 [facility] Comment on above: Performed By: #### G LYHGB, LIPR, URNMAB ####[facility] [address] [place], [place] [id number] Lab Director: Agusto Ferrell MD#### DYLAN ANNE CP, ZFAST ####[facility] [address] [place] [address] Lab Director: Yury Caba MD Potassium [Moles/Vol] 4.3 mmol/L Normal 3.7-5.3 [facility] Comment on above: Performed By: #### G LYHGB, LIPR, URNMAB ####[facility] [address] [place] [address] Lab Director: Agusto Ferrell MD#### DIME, CDP, CP, ZFAST ####[facility] [address] [place] [address] Lab Director: Yury Caba MD Protein [Mass/Vol] 7.2 g/dL Normal 6.4-8.3 [facility] Comment on above: Performed By: #### G LYHGB, LIPR, URNMAB ####[facility] [address] [place] [address] Lab Director: Agusto Ferrell MD#### DIMDarlene, CDP, CP, ZFAST ####[facility] [address] [place] [address] Lab Director: Yury Caba MD Sodium [Moles/Vol] 137 mmol/L Normal 135-144 [facility] Comment on above: Performed By: #### G LYHGB, LIPR, URNMAB ####[facility] [address] [place] [address] Lab Director: Agusto Ferrell MD#### DIMDarlene, CDP, CP, ZFAST ####[facility] [address] [place] [address] Lab Director: Yury Caba MD Urea nitrogen [Mass/Vol] 10 mg/dL Normal 8-23 [facility] Comment on above: Performed By: #### G LYHGB, LIPR, URNMAB ####[facility] [address] [place] [address] lab Director: Agusto Ferrell MD#### DAYANA, CDP, CP, ZFAST ####[facility] [address] [place] [address] lab Director: Yury Caba MD Comprehensive Metabolic Pane [facility] 08-10-2023 Albumin [Mass/Vol] 4.3 g/dL 3.5 - 5.2 g/dL [facility] ALP [Catalytic activity/Vol] 169 U/L High 35 - 104 U/L [facility] ALT [Catalytic activity/Vol] 84 U/L High 5 - 33 U/L [facility] Anion gap [Moles/Vol] 13 mmol/L 9 - 17 mmol/L [facility] AST [Catalytic activity/Vol] 83 U/L High NINF - 32 U/L [facility] Bilirubin [Mass/Vol] 0.4 mg/dL 0.3 - 1.2 mg/dL [facility] Calcium [Mass/Vol] 9.3 mg/dL 8.6 - 10.4 mg/dL [facility] Chloride [Moles/Vol] 98 mmol/L 98 - 107 mmol/L [facility] CO2 [Moles/Vol] 26 mmol/L 20 - 31 mmol/L [facility] Creatinine [Mass/Vol] 0.6 mg/dL 0.5 - 0.9 mg/dL [facility] GFR/1.73 sq M.predicted MDRD (S/P/Bld) [Vol rate/Area] - PINF [facility] Comment on above: These results are [...] [Mass/Vol] 91 mg/dL 70 - 99 mg/dL [facility] Interpretation and review of laboratory results Abnormal [facility] Potassium [Moles/Vol] 4.3 mmol/L 3.7 - 5.3 mmol/L [facility] Protein [Mass/Vol] 7.2 g/dL 6.4 - 8.3 g/dL [facility] Sodium [Moles/Vol] 137 mmol/L 135 - 144 mmol/L [facility] Urea nitrogen [Mass/Vol] 10 mg/dL 8 - 23 mg/dL [facility] Urea nitrogen/Creatinine [Mass ratio] 17 mg/mg 9 - 20 [facility] D-Dimer Teston 08-10-2023 D-Dimer Test 0.51 ug/mL FEU Normal 0.00-0.59 [facility] Comment on above: Result Comment: When combined [...] with distal DVT. Performed By: #### G LYJAME, LIPR, URNMAB ####[facility] [address] [place] [address] [facility] Director: Agusto Ferrell MD#### DAYANA, DYLAN, CP, ZFAST ####[facility] [address] [place] [address] lab Director: Yury Caba MD D-Dimer, Quantitativeon Fibrin D-dimer FEU (PPP) [Mass/Vol] 0.51 [facility] Comment on above: When combined with [...] more prevalent in patients with distal DVT. [facility] Patient fasting?on 4 Patient fasting? Patient Refused Normal [facility] Comment on above: Performed By: #### G LYHGB, LIPR, URNMAB ####[facility] [address] [place] [address] Lab Director: Agusto Ferrell MD#### DYLAN ANNE, CP, ZFAST ####[facility] [address] [place], [place] [phone] lab Director: Yury Caba MD XR Pelvis and Hip - right 2 Viewson 08-10-2023 Radiology Study observation (narrative) [facility] VL DUP LOWER EXTREMITY VENOU S BILATERALon 05-31-2023 Negative. [facility] RIS CONSOLIDATED EXAM: VL DUP LOWER EXTREMITY VENOUS [...] the superficial or deep system bilaterally. [facility] Casa De Leon Jr., MD - 12/01/2022 EXAM: VL DUP [...] superficial or deep system bilaterally. IMPRESSION: Negative. [employer] Phone: Radiology Study observation (narrative) [employer] Phone: VL DUP LOWER EXTREMITY VENOU S BILATERALOrdered By: Casa Minor on 12-01-2022 [employer] Phone: XR CERVICAL SPINE (4-5 VIEWS )on 10-19-2022 FINDINGS/IMPRESSION: 1. Moderate disc space narrowing and anterior osteophyte formation from C4-C5 inferiorly. 2. Intervertebral foramina show minimal narrowing bilaterally due to facet and uncovertebral osteophytes. 3. No fracture. [facility] CONSOLIDATED EXAM: XR CERVICAL SPINE (4-5 VIEWS). HISTORY: Left hand weakness. COMPARISON: None. [facility] Casa De Leon Jr., MD - 10/19/2022 EXAM: XR CERVICAL SPINE (4-5 VIEWS). HISTORY: Left hand weakness. COMPARISON: None. IMPRESSION: FINDINGS/IMPRESSION: 1. Moderate disc space narrowing and anterior osteophyte formation from C4-C5 inferiorly. 2. Intervertebral foramina show minimal narrowing bilaterally due to facet and uncovertebral osteophytes. 3. No fracture. [employer] Phone: Radiology Study observation (narrative) [employer] Phone: XR CERVICAL SPINE (4-5 VIEWS )Ordered By: Casa Minor on 10-19-2022 [employer] Phone: XR LUMBAR SPINE (MIN 4 VIEWS )on 10-19-2022 FINDINGS/IMPRESSION: 1. Moderate to moderately severe diffuse disc space narrowing and osteophyte formation similar to previous. 2. Mild facet degenerative change L4-L5 and L5-S1. 3. No fracture or pars defects. 4. Slight convex right lumbar curve unchanged. [facility] CONSOLIDATED EXAM: XR LUMBAR SPIN E (MIN 4 VIEWS) HISTORY: Weakness of both legs COMPARISON: CT abdomen and pelvis 02/07/2020. [facility] CONSOLIDATED Casa Minor Jr., MD - [...] 4. Slight convex right lumbar curve unchanged. [employer] Work Phone: Radiology Study observation (narrative) [employer] Work Phone: XR LUMBAR SPINE (MIN 4 VIEWS )Ordered By: Casa Minor on 10-19-2022 [employer] Phone: Glucose, Whole Bloodon 10-15 Glucose [Mass/Vol] 127 mg/dL High 65 - 99 mg/dL [facility] Interpretation and review [facility] laboratory results Abnormal [facility] POCT glucoseOrdered By: Dilan Prescott on 10-15-2022 Interpretation and review of laboratory results Normal [employer] QC OK? y [employer] [facility] Brain Natriuretic Peptideon 10-14-2022 Natriuretic peptide B (Bld) [Mass/Vol] 42 pg/mL NINF - 300 pg/mL [facility] Comment on above: An age-independent cutoff point of 300 pg/ml has a 98% negative predictive value excluding acute heart failure. CBC with Auto Differentialon 10-14-2022 Absolute Eos # 0.10 [facility] Absolute Lymph # 1.60 [facility] Absolute Canyon # 0.40 [facility] Basophils (Bld) [#/Vol] 0.00 10*3/uL [facility] Basophils/100 WBC (Bld) 1 % 0 - 2 % [facility] Differential Type YES [facility] Eosinophils/100 WBC (Bld) 2 % 0 - 5 % [facility] Hematocrit (Bld) [Volume fraction] 41.4 % 36 - 46 % [facility] Hemoglobin (Bld) [Mass/Vol] 13.5 g/dL 12.0 - 16.0 g/dL [facility] Interpretation and review of laboratory results Abnormal [facility] Lymphocytes/100 WBC (Bld) 24 % 15 - 40 % [facility] MCH (RBC) [Entitic mass] 30.8 pg 26 - 34 pg [facility] MCHC (RBC) [Mass/Vol] 32.7 g/dL 31 - 37 g/dL [facility] MCV (RBC) [Entitic vol] 94.3 fL 80 - 100 fL [facility] Monocytes/100 WBC (Bld) 5 % 4 - 8 % [facility] Platelet distribution width (Bld) [Ratio] 16.4 % High 12.1 - 15.2 % [facility] Platelets (Bld) [#/Vol] 264 10*3/uL [facility] RBC (Bld) [#/Vol] 4.39 10*6/uL 4.0 - 5.2 m/uL B [facility] Segmented neutrophils/100 WBC (Bld) 68 % 47 - 75 % [facility] Segs Absolute 4.70 [facility] WBC (Bld) [#/Vol] 6.9 10*3/uL [facility] CMPon 10-14-2022 Albumin [Mass/Vol] 4.4 g/dL 3.5 - 5.2 g/dL N [facility] ALP [Catalytic activity/Vol] 86 U/L 35 - 104 U/L [facility] ALT [Catalytic activity/Vol] 33 U/L 5 - 33 U/L [facility] Anion gap [Moles/Vol] 14 mmol/L 9 - 17 mmol/L [facility] AST [Catalytic activity/Vol] 29 U/L NINF - 32 U/L [facility] Bilirubin [Mass/Vol] 0.3 mg/dL 0.3 - 1.2 mg/dL [facility] Calcium [Mass/Vol] 8.8 mg/dL 8.6 - 10.4 mg/dL [facility] Chloride [Moles/Vol] 96 mmol/L Low 98 - 107 mmol/L [facility] CO2 [Moles/Vol] 23 mmol/L 20 - 31 mmol/L [facility] Creatinine [Mass/Vol] 0.8 mg/dL 0.50 - 0.90 mg/dL [facility] GFR/1.73 sq M.predicted MDRD (S/P/Bld) [Vol rate/Area] - PINF [facility] Comment on above: These results are [...] 108 mg/dL High 70 - 99 mg/dL [facility] Potassium [Moles/Vol] 3.9 mmol/L 3.7 - 5.3 mmol/L [facility] Protein [Mass/Vol] 7.4 g/dL 6.4 - 8.3 g/dL [facility] Sodium [Moles/Vol] 133 mmol/L Low 135 - 144 mmol/L [facility] Urea nitrogen [Mass/Vol] 11 mg/dL 6 - 20 mg/dL [facility] Urea nitrogen/Creatinine (Bld) [Mass ratio] 14 9 - 20 [facility] Ethanolon 10-14-2022 Ethanol [Mass/Vol] 230 mg/dL High NINF - 10 mg/dL B ON [facility] Ethanol percent 0.23 % [facility] No Panel Informationon 10-14 [facility] Interpretation and review of laboratory results Abnormal [facility] Troponinon 10-14-2022 Troponin I.cardiac DL <= 0.01 ng/mL [Mass/Vol] 6 ng/L 0 - 14 ng/L [facility] Comment on above: High Sensitivity Tro ponin values cannot be compared with other Troponin methodologies. XR CHEST PORTABLEon 10-15-19 23 1. Mild cardiomegaly. 2. Mild bibasilar atelectasis. [facility] RIS CONSOLIDATED EXAM: XR CHEST PORTABLE HISTORY: Reason for exam:->sob COMPARISON: Portable chest from 06/18/2018. TECHNIQUE: Portable chest was done at 9:46 PM. FINDINGS: Trachea, mediastinum and diaphragm are unremarkable. Heart size is mildly prominent. Mild bibasilar atelectasis is noted. No effusion or nodule or thorax is noted. Bony elements are intact. [facility] RIS CONSOLIDATED Monroe Grant, DO - 10/14/2022 [...] 1. Mild cardiomegaly. 2. Mild bibasilar atelectasis. [facility] Work Phone: Radiology Study observation (narrative) [facility] Work Phone: XR CHEST PORTABLEOrdered By: Monroe Grant on 10-14-2022 [facility] Work Phone: CKon 10-13-2022 CK [Catalytic activity/Vol] 39 U/L 26 - 192 U/L [facility] Vitamin D 25 Hydroxyon 10-13 25-hydroxyvitamin D3 [Mass/Vol] 19.9 ng/mL Low 29.9 - PINF ng/mL [facility] Comment on above: Reference Range: Vitamin D status Range Deficiency <20 ng/mL Mild Deficiency 20-30 ng/mL Sufficiency 30-100 ng/mL Toxicity >100 ng/mL Interpretation and review of laboratory results Abnormal [facility] CHEMISTRYOrdered By: SYSTEM SYSTEM on 10-06-2022 Anion [...] [Vol rate/Area] mL/min/1.73 m2 Normal >=59mL/min/1.73 m2 [facility] Chem S GFR/1.73 sq M.predicted among non-blacks MDRD (S/P/Bld) [Vol rate/Area] mL/min/1.73 m2 Normal >=59mL/min/1.73 m2 [facility] Chem S Glucose [Mass/Vol] 180 mg/dL Normal 55 - 199 mg/dL [facility] Magnesium [Mass/Vol] 2.4 mg/dL Normal 1.3 - 2.4 mg/dL [facility] Potassium [Moles/Vol] 4.2 mmol/L Normal 3.5 - 5.3 mmol/L [facility] Sodium [Moles/Vol] 135 mmol/L Normal 135 - 145 mmol/L [facility] Urea nitrogen [Mass/Vol] 12 mg/dL Normal 5 - 21 mg/dL [facility] Urea nitrogen/Creatinine [Mass ratio] 15 mg/mg Normal 10 - 20 [facility] Remisol CHEMISTRYOrdered By: SYSTEM SYSTEM on 09-29-2022 Magnesium [Mass/Vol] 2.8 mg/dL High 1.3 - 2.4 mg/dL [facility] Remisol Glucose Glucometer (BldC) [M ass/Vol]Ordered By: José Sanchez on 09-14-2022 Glucose [Mass/Vol] 248 mg/dL [facility] Comment on above: Random Glucose Refer ence Range is dependent on time and content of last meal. Glucose of more than 200 mg/dL in a nonstressed, ambulatory subject supports the diagnosis of Diabetes Mellitus. Glucose Poct Glucometerson 0 09-14-2022 Glucose [Mass/Vol] 248 mg/dL Normal [facility] Comment on above: Result Comment: [place] om Glucose Reference Range is dependent on time and content of last meal. Glucose of more than 200 mg/dL in a nonstressed, ambulatory subject supports the diagnosis of Diabetes Mellitus. PERFORMED BY: [facility] [address] [place] [address] PATHOLOGIST WIRE COINER EZRA MCCLAIN M.D. Performed By: #### G LULS #### Point of Care testing , Glucose [Mass/Vol] 253 mg/dL Normal [facility] Comment on above: Result Comment: [facility] om Glucose Reference Range is dependent on time and content of last meal. Glucose of more than 200 mg/dL in a nonstressed, ambulatory subject supports the diagnosis of Diabetes Mellitus. PERFORMED BY: [facility] [address] [place] [address] PATHOLOGIST WIRE COINER EZRA MCCLAIN M.D. Performed By: #### G LULS #### Point of Care testing , Alanine aminotransferase [En zymatic activity/volume] in Serum or PlasmaOrdered By: Marilyn Sun on 09-13-2022 ALT [Catalytic activity/Vol] 59 U/L 7-52 [facility] Albumin [Mass/volume] in Ser um or Plasma by Bromocresol green (BCG) dye binding methoOrdered By: Marilyn Sun on 09-13-2022 Albumin BCG dye [Mass/Vol] 4.6 g/dL 3.5-5.7 [facility] Alkaline phosphatase [Enzyma tic activity/volume] in Serum or PlasmaOrdered By: Marilyn Riosr on 09-13-2022 ALP [Catalytic activity/Vol] 103 U/L 34-104 [facility] Aspartate aminotransferase [ Enzymatic activity/volume] in Serum or PlasmaOrdered By: Marilyn Mejiaomar on 09-13-2022 AST [Catalytic activity/Vol] 80 U/L 13-39 [facility] Basophils Auto (Bld) [#/Vol] Ordered By: Obartur Mejiaomar on 09-13-2022 Basophils (Bld) [#/Vol] 0.0 10*3/uL 0.0-0.2 [facility] Basophils/100 WBC Auto (Bld) Ordered By: Marilyn Riosr on 09-13-2022 Basophils/100 WBC (Bld) 0.2 % . [facility] Bilirubin.total [Mass/volume ] in Serum or PlasmaOrdered By: Marilyn Sun on 09-13-2022 Bilirubin [Mass/Vol] 0.4 mg/dL 0.3-1.0 [facility] Calcium [Mass/volume] in Ser um or PlasmaOrdered By: Marilyn Riosr on 09-13-2022 Calcium [Mass/Vol] 9.1 mg/dL 8.6-10.3 [facility] Carbon dioxide, total [Moles /volume] in Serum or PlasmaOrdered By: Marilyn Sun on 09-13-2022 CO2 [Moles/Vol] 29.3 mmol/L 21.0-31.0 [facility] Chloride [Moles/volume] in S caitlyn or PlasmaOrdered By: Marilyn Sun on 09-13-2022 Chloride [Moles/Vol] 96 mmol/L 98-107 [facility] Complete Blood Count Auto Di ffon 09-13-2022 Basophils (Bld) [#/Vol] 0.0 10*3/uL Normal 0.0-0.2 [facility] Comment on above: Result Comment: PERF ORMED BY: [facility] [place] [address] PATHOLOGIST W[employer] COINER EZRA MCCLAIN M.D. Performed By: #### G ROSALIELS #### Point of Care testing , Basophils/100 WBC (Bld) 0.2 % Normal . [facility] Comment on above: Performed By: #### G ROSALIELS #### Point of Care testing , Eosinophils (Bld) [#/Vol] 0.0 10*3/uL Normal 0.0-0.45 [facility] Comment on above: Performed By: #### G LULS #### Point of Care testing , Eosinophils/100 WBC (Bld) 0.0 % Normal . [facility] Comment on above: Performed By: #### G LULS #### Point of Care testing , Erythrocyte distribution width (RBC) [Ratio] 18.2 % High 11.9-15.3 [facility] Comment on above: Performed By: #### G LULS #### Point of Care testing , Hematocrit (Bld) [Volume fraction] 38.3 % Normal 34.0-46.4 [facility] Comment on above: Performed By: #### G LULS #### Point of Care testing , Hemoglobin (Bld) [Mass/Vol] 12.7 g/dL Normal 11.8-15.4 [facility] Comment on above: Performed By: #### G LULS #### Point of Care testing , Lymphocytes (Bld) [#/Vol] 0.5 10*3/uL Low 1.00-4.8 [facility] Comment on above: Performed By: #### G LULS #### Point of Care testing , Lymphocytes/100 WBC (Bld) 6.4 % Normal . [facility] Comment on above: Performed By: #### G LULS #### Point of Care testing , MCH (RBC) [Entitic mass] 31.7 pg Normal 24.7-34.3 [facility] Comment on above: Performed By: #### G LULS #### Point of Care testing , MCV (RBC) [Entitic vol] 95.9 fL Normal 80-100 [facility] Comment on above: Performed By: #### Loly PRUETT #### Point of Care testing , Mean Corpuscular HGB Conc 33.1 g/dL Normal 32.0-35.0 [facility] Comment on above: Performed By: #### Loly PRUETT #### Point of Care testing , Monocytes (Bld) [#/Vol] 0.3 10*3/uL Normal 0.0-0.8 [facility] Comment on above: Performed By: #### Loly PRUETT #### Point of Care testing , Monocytes/100 WBC (Bld) 3.8 % Normal . [facility] Comment on above: Performed By: #### Loly PRUETT #### Point of Care testing , Neutrophils (Bld) [#/Vol] 6.8 10*3/uL Normal 1.8-7.7 [facility] Comment on above: Performed By: #### Loly PRUETT #### Point of Care testing , Neutrophils/100 WBC (Bld) 89.6 % Normal . [facility] Comment on above: Performed By: #### Loly PRUETT #### Point of Care testing , NRBC% 0.0 /100{WBC} Normal 0-0.5 [facility] Comment on above: Performed By: #### Loly PRUETT #### Point of Care testing , Platelet mean volume (Bld) [Entitic vol] 7.5 fL Normal 6.3-10.7 [facility] Comment on above: Performed By: #### Loly PRUETT #### Point of Care testing , Platelets (Bld) [#/Vol] 201 10*3/uL Normal 150-450 [facility] Comment on above: Performed By: #### Loly PRUETT #### Point of Care testing , RBC (Bld) [#/Vol] 4.00 10*6/uL Normal 3.60-5.00 [facility] Comment on above: Performed By: #### Loly PRUETT #### Point of Care testing , WBC (Bld) [#/Vol] 7.6 10*3/uL Normal 3.8-11.6 [facility] Comment on above: Performed By: #### Loly PRUETT #### Point of Care testing , Comprehensive Metabolic Pane usman 09-13-2022 Albumin [Mass/Vol] 4.6 g/dL Normal 3.5-5.7 [facility] Comment on above: Performed By: #### Loly PRUETT #### Point of Care testing , Albumin/Globulin [Mass ratio] 1.7 {ratio} Normal [facility] Comment on above: Performed By: #### Loly PRUETT #### Point of Care testing , ALP [Catalytic activity/Vol] 103 U/L Normal 34-104 [facility] Comment on above: Performed By: #### Loly PRUETT #### Point of Care testing , ALT [Catalytic activity/Vol] 59 U/L High 7-52 [facility] Comment on above: Performed By: #### Loly PRUETT #### Point of Care testing , Anion gap [Moles/Vol] Not performed Normal 6.0-15.0 [facility] Comment on above: Performed By: #### Loly PRUETT #### Point of Care testing , AST [Catalytic activity/Vol] 80 U/L High 13-39 [facility] Comment on above: Performed By: #### Loly PRUETT #### Point of Care testing , Bilirubin [Mass/Vol] 0.4 mg/dL Normal 0.3-1.0 [facility] Comment on above: Performed By: #### Loly PRUETT #### Point of Care testing , Calcium [Mass/Vol] 9.1 mg/dL Normal 8.6-10.3 [facility] Comment on above: Performed By: #### Loly PRUETT #### Point of Care testing , Chloride [Moles/Vol] 96 mmol/L Low 98-107 [facility] Comment on above: Performed By: #### Loly PRUETT #### Point of Care testing , CO2 [Moles/Vol] 29.3 mmol/L Normal 21.0-31.0 [facility] Comment on above: Performed By: #### G LULS #### Point of Care testing , Creatinine [Mass/Vol] 0.85 mg/dL Normal 0.60-1.20 [facility] Comment on above: Performed By: #### G LULS #### Point of Care testing , Creatinine Clr Calc Pharmacy 104.67 [facility] Comment on above: Result Comment: PERF ORMED BY: [facility] [place] [address] PATHOLOGIST WIRE COINER EZRA MCCLAIN M.D. Performed By: #### G LULS #### Point of Care testing , GFR/1.73 sq M.predicted MDRD (S/P/Bld) [Vol rate/Area] mL/min/{1.73_m2} [facility] Comment on above: Performed By: #### G LULS #### Point of Care testing , Globulin (S) [Mass/Vol] 2.7 g/dL Normal [facility] Comment on above: Performed By: #### G LULS #### Point of Care testing , Glucose [Mass/Vol] 284 mg/dL High 74-109 [facility] Comment on above: Result Comment: [place] Glucose Reference Range is dependent on time and content of last meal. Glucose of more than 200 mg/dL in a nonstressed, ambulatory subject supports the diagnosis of Diabetes Mellitus. ADA recommended reference range Performed By: #### G LULS #### Point of Care testing , Potassium Normal 3.5-5.1 [facility] Comment on above: Result Comment: Spec imen hemolyzed, redraw requested Performed By: #### G LULS #### Point of Care testing , Protein [Mass/Vol] 7.3 g/dL Normal 6.4-8.9 [facility] Comment on above: Performed By: #### G LULS #### Point of Care testing , Sodium [Moles/Vol] 134 mmol/L Low 136-145 [facility] Comment on above: Performed By: #### G LULS #### Point of Care testing , Urea nitrogen [Mass/Vol] 37 mg/dL High 7-25 [facility] Comment on above: Performed By: #### G LULS #### Point of Care testing , Creatinine [Mass/volume] in Serum or PlasmaOrdered By: Marilyn Sun on 09-13-2022 Creatinine [Mass/Vol] 0.85 mg/dL 0.60-1.20 [facility] Eosinophils Auto (Bld) [#/Vo l]Ordered By: Marilyn Sun on 09-13-2022 Eosinophils (Bld) [#/Vol] 0.0 10*3/uL 0.0-0.45 [facility] Eosinophils/100 WBC Auto (Bl d)Ordered By: Marilyn Riosr on 09-13-2022 Eosinophils/100 WBC (Bld) 0.0 % . [facility] Erythrocyte distribution wid th Auto (RBC) [Ratio]Ordered By: Marilyn Sun on 09-13-2022 Erythrocyte distribution width (RBC) [Ratio] 18.2 % 11.9-15.3 [facility] Globulin Calc (S) [Mass/Vol] Ordered By: Marilyn Sun on 09-13-2022 Globulin (S) [Mass/Vol] 2.7 g/dL [facility] Glucose Poct Glucometerson 0 09-13-2022 Commemt1 Glu2: Cleaned Meter Normal [facility] Comment on above: Result Comment: PERF ORMED BY: [facility] [address] [place] [address] PATHOLOGIST WIRE COINER EZRA MCCLAIN M.D. Performed By: #### G LULS #### Point of Care testing , Glucose [Mass/Vol] 375 mg/dL Normal [facility] Comment on above: Result Comment: [facility] Glucose Reference Range is dependent on time and content of last meal. Glucose of more than 200 mg/dL in a nonstressed, ambulatory subject supports the diagnosis of Diabetes Mellitus. Performed By: #### G LULS #### Point of Care testing , Glucose [Mass/Vol] 360 mg/dL Normal [facility] Comment on above: Result Comment: [facility] Glucose Reference Range is dependent on time and content of last meal. Glucose of more than 200 mg/dL in a nonstressed, ambulatory subject supports the diagnosis of Diabetes Mellitus. PERFORMED BY: [place] [address] PATHOLOGIST WIRE COINER EZRA MCCLAIN M.D. Performed By: #### C MP, CBC #### [address] Glucose [Mass/Vol] 348 mg/dL Normal [facility] Comment on above: Result Comment: [place] [facility] Glucose Reference Range is dependent on time and content of last meal. Glucose of more than 200 mg/dL in a nonstressed, ambulatory subject supports the diagnosis of Diabetes Mellitus. PERFORMED BY: [place] [address] PATHOLOGIST WIRE COINER EZRA MCCLAIN M.D. Performed By: #### G LULS #### Point of Care testing , Commemt1 Glu2: Cleaned Meter Normal [facility] Comment on above: Result Comment: PERF ORMED BY: [place] [address] PATHOLOGIST WIRE COINER EZRA MCCLAIN M.D. Performed By: #### G LULS #### Point of Care testing , Glucose [Mass/Vol] 261 mg/dL Normal [facility] Comment on above: Result Comment: [place] [facility] Glucose Reference Range is dependent on time and content of last meal. Glucose of more than 200 mg/dL in a nonstressed, ambulatory subject supports the diagnosis of Diabetes Mellitus. Performed By: #### G LULS #### Point of Care testing , Glucose [Mass/volume] in Ser um or PlasmaOrdered By: Marilyn Sun on 09-13-2022 Glucose [Mass/Vol] 284 mg/dL 74-109 [facility] Comment on above: ADA recommended refe rence rangeRandom Glucose Reference Range is dependent on time and content of last meal. Glucose of more than 200 mg/dL in a nonstressed, ambulatory subject supports the diagnosis of Diabetes Mellitus. Hematocrit Auto (Bld) [Volum e fraction]Ordered By: Marilyn Sun on 09-13-2022 Hematocrit (Bld) [Volume fraction] 38.3 % 34.0-46.4 [facility] Hemoglobin [Mass/volume] in BloodOrdered By: Marilyn Sun on 09-13-2022 Hemoglobin (Bld) [Mass/Vol] 12.7 g/dL 11.8-15.4 [facility] Laboratory - Chemistry and C hemistry - challengeOrdered By: Marilyn Sun on 09-13-2022 GFR/1.73 sq M.predicted MDRD (S/P/Bld) [Vol rate/Area] mL/min/{1.73_m2} [facility] Leukocytes [#/volume] correc jeffrey for nucleated erythrocytes in Blood by Automated counOrdered By: Marilyn Sun on 09-13-2022 WBC corrected for nucl RBC Auto (Bld) [#/Vol] 7.6 10*3/uL 3.8-11.6 [facility] Lymphocytes Auto (Bld) [#/Vo l]Ordered By: Marilyn Sun on 09-13-2022 Lymphocytes (Bld) [#/Vol] 0.5 10*3/uL 1.00-4.8 [facility] Lymphocytes/100 WBC Auto (Bl d)Ordered By: Marilyn Sun on 09-13-2022 Lymphocytes/100 WBC (Bld) 6.4 % . [facility] MCH Auto (RBC) [Entitic mass ]Ordered By: Marilyn Sun on 09-13-2022 MCH (RBC) [Entitic mass] 31.7 pg 24.7-34.3 [facility] MCHC Auto (RBC) [Mass/Vol]Or dered By: Marilyn Sun on 09-13-2022 MCHC (RBC) [Mass/Vol] 33.1 g/dL 32.0-35.0 [facility] MCV Auto (RBC) [Entitic vol] Ordered By: Marilyn Sun on 09-13-2022 MCV (RBC) [Entitic vol] 95.9 fL 80-100 [facility] Monocytes Auto (Bld) [#/Vol] Ordered By: Marilyn Sun on 09-13-2022 Monocytes (Bld) [#/Vol] 0.3 10*3/uL 0.0-0.8 [facility] Monocytes/100 WBC Auto (Bld) Ordered By: Marilyn Riosr on 09-13-2022 Monocytes/100 WBC (Bld) 3.8 % . [facility] Neutrophils Auto (Bld) [#/Vo l]Ordered By: Marilyn Riosr on 09-13-2022 Neutrophils (Bld) [#/Vol] 6.8 10*3/uL 1.8-7.7 [facility] Neutrophils/100 WBC Auto (Bl d)Ordered By: Marilyn Sun on 09-13-2022 Neutrophils/100 WBC (Bld) 89.6 % . [facility] No Panel InformationOrdered By: José Sanchez on 09-13-2022 Bedside Glucose Comment Glu2: cleaned meter [facility] No Panel InformationOrdered By: Marilyn Sun on 09-13-2022 Pharmacy Creatinine Clearance (Chem 104.67 [facility] Nucleated erythrocytes [Pres ence] in Blood by Automated countOrdered By: Marilyn Sun on 09-13-2022 Nucleated RBC Auto Ql (Bld) 0.0 /100{WBC} 0-0.5 [facility] Platelet mean volume Auto (B ld) [Entitic vol]Ordered By: Marilyn Sun on 09-13-2022 Platelet mean volume (Bld) [Entitic vol] 7.5 fL 6.3-10.7 [facility] Platelets Auto (Bld) [#/Vol] Ordered By: Marilyn Sun on 09-13-2022 Platelets (Bld) [#/Vol] 201 10*3/uL 150-450 [facility] Potassium [Moles/volume] in Serum or PlasmaOrdered By: Marilyn Sun on 09-13-2022 Potassium [Moles/Vol] 4.5 mmol/L 3.5-5.1 [facility] Protein [Mass/volume] in Ser um or PlasmaOrdered By: Marilyn Sun on 09-13-2022 Protein [Mass/Vol] 7.3 g/dL 6.4-8.9 [facility] RBC Auto (Bld) [#/Vol]Ordere d By: Marilyn Mejiaomacortes on 09-13-2022 RBC (Bld) [#/Vol] 4.00 10*6/uL 3.60-5.00 [facility] Redraw Potassiumon Potassium [Moles/Vol] 4.5 mmol/L Normal 3.5-5.1 [facility] Comment on above: Order Comment: FIRST SPECMEN HEMOLYZED Result Comment: PERF ORMED BY: [facility] [place] [address] PATHOLOGIST WIRE COINER EZRA MCCLAIN M.D. Performed By: #### G LULS #### Point of Care testing , Serum or plasma albumin/glob ulin mass ratioOrdered By: Marilyn Sun on 09-13-2022 Albumin/Globulin [Mass ratio] 1.7 {ratio} [facility] Serum or plasma anion gap de terminationOrdered By: Marilyn Sun on 09-13-2022 Anion gap [Moles/Vol] TNP [facility] Comment on above: Test not performed Sodium [Moles/volume] in Ser um or PlasmaOrdered By: Marilyn Sun on 09-13-2022 Sodium [Moles/Vol] 134 mmol/L 136-145 [facility] Urea nitrogen [Mass/volume] in Serum or PlasmaOrdered By: Marilyn Sun on 09-13-2022 Urea nitrogen [Mass/Vol] 37 mg/dL 7-25 [facility] WBC Auto (Bld) [#/Vol]Ordere d By: Marilyn Mejiaomar on 09-13-2022 WBC (Bld) [#/Vol] 7.6 10*3/uL 3.8-11.6 [facility] Complete Blood Count Auto Di ffon 09-12-2022 Basophils (Bld) [#/Vol] 0.0 10*3/uL Normal 0.0-0.2 [facility] Comment on above: Result Comment: PERF ORMED BY: [place] [address] PATHOLOGIST WIRE COINER EZRA MCCLAIN M.D. Performed By: #### H S TROP #### [address] Basophils/100 WBC (Bld) 0.2 % Normal . [facility] Comment on above: Performed By: #### H S TROP #### [address] Eosinophils (Bld) [#/Vol] 0.0 10*3/uL Normal 0.0-0.45 [facility] Comment on above: Performed By: #### H S TROP #### [address] Eosinophils/100 WBC (Bld) 0.0 % Normal . [facility] Comment on above: Performed By: #### H S TROP #### [address] Erythrocyte distribution width (RBC) [Ratio] 17.5 % High 11.9-15.3 [facility] Comment on above: Performed By: #### H S TROP #### [address] Hematocrit (Bld) [Volume fraction] 36.3 % Normal 34.0-46.4 [facility] Comment on above: Performed By: #### H S TROP #### [address] Hemoglobin (Bld) [Mass/Vol] 12.0 g/dL Normal 11.8-15.4 [facility] Comment on above: Performed By: #### H S TROP #### [address] Lymphocytes (Bld) [#/Vol] 0.3 10*3/uL Low 1.00-4.8 [facility] Comment on above: Performed By: #### H S TROP #### [address] [place] [address] [place] Lymphocytes/100 WBC (Bld) 4.1 % Normal . [facility] Comment on above: Performed By: #### H S TROP #### [address] MCH (RBC) [Entitic mass] 31.7 pg Normal 24.7-34.3 [facility] Comment on above: Performed By: #### H S TROP #### [address] MCV (RBC) [Entitic vol] 95.9 fL Normal 80-100 [facility] Comment on above: Performed By: #### H S TROP #### [address] Mean Corpuscular HGB Conc 33.1 g/dL Normal 32.0-35.0 [facility] Comment on above: Performed By: #### H S TROP #### [address] Monocytes (Bld) [#/Vol] 0.3 10*3/uL Normal 0.0-0.8 [facility] Comment on above: Performed By: #### H S TROP #### [address] Monocytes/100 WBC (Bld) 3.8 % Normal . [facility] Comment on above: Performed By: #### H S TROP #### [address] Neutrophils (Bld) [#/Vol] 6.3 10*3/uL Normal 1.8-7.7 [facility] Comment on above: Performed By: #### H S TROP #### [address] Neutrophils/100 WBC (Bld) 91.9 % Normal . [facility] Comment on above: Performed By: #### H S TROP #### [address] NRBC% 0.0 /100{WBC} Normal 0-0.5 [facility] Comment on above: Performed By: #### H S TROP #### [address] Platelet mean volume (Bld) [Entitic vol] 7.5 fL Normal 6.3-10.7 [facility] Comment on above: Performed By: #### H S TROP #### [address] Platelets (Bld) [#/Vol] 177 10*3/uL Normal 150-450 [facility] Comment on above: Performed By: #### H S TROP #### [address] RBC (Bld) [#/Vol] 3.79 10*6/uL Normal 3.60-5.00 [facility] Comment on above: Performed By: #### H S TROP #### [address] WBC (Bld) [#/Vol] 6.8 10*3/uL Normal 3.8-11.6 [facility] Comment on above: Performed By: #### H S TROP #### [address] Comprehensive Metabolic Pane usman 09-12-2022 Albumin [Mass/Vol] 4.1 g/dL Normal 3.5-5.7 [facility] Comment on above: Performed By: #### H S TROP #### [address] Albumin/Globulin [Mass ratio] 1.6 {ratio} Normal [facility] Comment on above: Performed By: #### H S TROP #### [address] ALP [Catalytic activity/Vol] 101 U/L Normal 34-104 [facility] Comment on above: Performed By: #### H S TROP #### [address] ALT [Catalytic activity/Vol] 45 U/L Normal 7-52 [facility] Comment on above: Performed By: #### H S TROP #### [facility] [address] Anion gap [Moles/Vol] 12.8 mmol/L Normal 6.0-15.0 [facility] Comment on above: Performed By: #### H S TROP #### [facility] [address] AST [Catalytic activity/Vol] 55 U/L High 13-39 [facility] Comment on above: Performed By: #### H S TROP #### [facility] [address] Bilirubin [Mass/Vol] 0.4 mg/dL Normal 0.3-1.0 [facility] Comment on above: Performed By: #### H S TROP #### [facility] [address] [place] [address] Calcium [Mass/Vol] 8.8 mg/dL Normal 8.6-10.3 [facility] Comment on above: Performed By: #### H S TROP #### [facility] [address] [place] [address] [place] Chloride [Moles/Vol] 96 mmol/L Low 98-107 [facility] Comment on above: Performed By: #### H S TROP #### [facility] [address] [place] [address] CO2 [Moles/Vol] 28.8 mmol/L Normal 21.0-31.0 [facility] Comment on above: Performed By: #### H S TROP #### [facility] [address] [place] [address] Creatinine [Mass/Vol] 0.90 mg/dL Normal 0.60-1.20 [facility] Comment on above: Performed By: #### H S TROP #### [facility] [address] [place] [address] Creatinine Clr Calc Pharmacy 100.98 Normal [facility] Comment on above: Result Comment: PERF ORMED BY: [place] [address] PATHOLOGIST WIRE COINER EZRA MCCLAIN M.D. Performed By: #### H S TROP #### [facility] [address] [place] [address] [place] GFR/1.73 sq M.predicted MDRD (S/P/Bld) [Vol rate/Area] mL/min/{1.73_m2} Normal [facility] Comment on above: Performed By: #### H S TROP #### [facility] [address] [place] [address] [place] Globulin (S) [Mass/Vol] 2.5 g/dL Normal [facility] Comment on above: Performed By: #### H S TROP #### [address] Glucose [Mass/Vol] 289 mg/dL High 74-109 [facility] Comment on above: Result Comment: [place] Glucose Reference Range is dependent on time and content of last meal. Glucose of more than 200 mg/dL in a nonstressed, ambulatory subject supports the diagnosis of Diabetes Mellitus. ADA recommended reference range Performed By: #### H S TROP #### [place] [address] [place] Potassium [Moles/Vol] 4.6 mmol/L Normal 3.5-5.1 [facility] Comment on above: Performed By: #### H S TROP #### [place] [address] [place] Protein [Mass/Vol] 6.6 g/dL Normal 6.4-8.9 [facility] Comment on above: Performed By: #### H S TROP #### [facility] [address] [place] [address] [place] Sodium [Moles/Vol] 133 mmol/L Low 136-145 [facility] Comment on above: Performed By: #### H S TROP #### [facility] [address] [place] [address] [place] Urea nitrogen [Mass/Vol] 29 mg/dL High 7-25 [facility] Comment on above: Performed By: #### H S TROP #### [address] Glucose Poct Glucometerson 0 09-12-2022 Commemt1 Glu2: Cleaned Meter [facility] Comment on above: Result Comment: PERF ORMED BY: [place] [address] PATHOLOGIST WIRE COINER EZRA MCCLAIN M.D. Performed By: #### C MP, CBC #### [address] Glucose [Mass/Vol] 203 mg/dL Normal [facility] Comment on above: Result Comment: [place] om Glucose Reference Range is dependent on time and content of last meal. Glucose of more than 200 mg/dL in a nonstressed, ambulatory subject supports the diagnosis of Diabetes Mellitus. Performed By: #### C MP, CBC #### [address] Commemt1 Glu2: Cleaned Meter [facility] Comment on above: Result Comment: PERF ORMED BY: [place] [address] PATHOLOGIST WIRE COINER EZRA MCCLAIN M.D. Performed By: #### G LULS #### Point of Care testing , Glucose [Mass/Vol] 331 mg/dL Normal [facility] Comment on above: Result Comment: [place] om Glucose Reference Range is dependent on time and content of last meal. Glucose of more than 200 mg/dL in a nonstressed, ambulatory subject supports the diagnosis of Diabetes Mellitus. Performed By: #### G LULS #### Point of Care testing , Commemt1 Glu2: Cleaned Meter [facility] Comment on above: Result Comment: PERF ORMED BY: [place] [address] PATHOLOGIST WIRE COINER EZRA MCCLAIN M.D. Performed By: #### C MP, CBC #### [address] Glucose [Mass/Vol] 282 mg/dL Normal [facility] Comment on above: Result Comment: [place] om Glucose Reference Range is dependent on time and content of last meal. Glucose of more than 200 mg/dL in a nonstressed, ambulatory subject supports the diagnosis of Diabetes Mellitus. Performed By: #### C MP, CBC #### [address] Commemt1 Glu2: Cleaned Meter Normal [facility] Comment on above: Result Comment: PERF ORMED BY: [place] [address] PATHOLOGIST WIRE COINER EZRA MCCLAIN M.D. Performed By: #### C MP, CBC #### [address] Glucose [Mass/Vol] 219 mg/dL Normal [facility] Comment on above: Result Comment: [place] om Glucose Reference Range is dependent on time and content of last meal. Glucose of more than 200 mg/dL in a nonstressed, ambulatory subject supports the diagnosis of Diabetes Mellitus. Performed By: #### C MP, CBC #### [address] Complete Blood Count Auto Di ffon 09-11-2022 Basophils (Bld) [#/Vol] 0.1 10*3/uL Normal 0.0-0.2 [facility] Comment on above: Result Comment: PERF ORMED BY: [place] [address] PATHOLOGIST WIRE COINER EZRA MCCLAIN M.D. Performed By: #### C MP, CBC #### [place] [address] [place] Basophils/100 WBC (Bld) 1.1 % Normal . [facility] Comment on above: Performed By: #### C MP, CBC #### [address] Eosinophils (Bld) [#/Vol] 0.0 10*3/uL Normal 0.0-0.45 [facility] Comment on above: Performed By: #### C MP, CBC #### [address] Eosinophils/100 WBC (Bld) 0.0 % Normal . [facility] Comment on above: Performed By: #### C MP, CBC #### [address] Erythrocyte distribution width (RBC) [Ratio] 17.5 % High 11.9-15.3 [facility] Comment on above: Performed By: #### C MP, CBC #### [address] Hematocrit (Bld) [Volume fraction] 38.9 % Normal 34.0-46.4 [facility] Comment on above: Performed By: #### C MP, CBC #### [address] Hemoglobin (Bld) [Mass/Vol] 12.7 g/dL Normal 11.8-15.4 [facility] Comment on above: Performed By: #### C MP, CBC #### [address] Lymphocytes (Bld) [#/Vol] 0.3 10*3/uL Low 1.00-4.8 [facility] Comment on above: Performed By: #### C MP, CBC #### [address] Lymphocytes/100 WBC (Bld) 4.7 % Normal . [facility] Comment on above: Performed By: #### C MP, CBC #### [address] MCH (RBC) [Entitic mass] 31.7 pg Normal 24.7-34.3 [facility] Comment on above: Performed By: #### C MP, CBC #### [address] MCV (RBC) [Entitic vol] 96.7 fL Normal 80-100 [facility] Comment on above: Performed By: #### C MP, CBC #### [address] Mean Corpuscular HGB Conc 32.8 g/dL Normal 32.0-35.0 [facility] Comment on above: Performed By: #### C MP, CBC #### [address] Monocytes (Bld) [#/Vol] 0.1 10*3/uL Normal 0.0-0.8 [facility] Comment on above: Performed By: #### C MP, CBC #### [address] Monocytes/100 WBC (Bld) 0.9 % Normal . [facility] Comment on above: Performed By: #### C MP, CBC #### [address] Neutrophils (Bld) [#/Vol] 6.0 10*3/uL Normal 1.8-7.7 [facility] Comment on above: Performed By: #### C MP, CBC #### [address] Neutrophils/100 WBC (Bld) 93.3 % Normal . [facility] Comment on above: Performed By: #### C MP, CBC #### [address] NRBC% 0.2 /100{WBC} Normal 0-0.5 [facility] Comment on above: Performed By: #### C MP, CBC #### [address] Platelet mean volume (Bld) [Entitic vol] 7.5 fL Normal 6.3-10.7 [facility] Comment on above: Performed By: #### C MP, CBC #### [address] Platelets (Bld) [#/Vol] 185 10*3/uL Normal 150-450 [facility] Comment on above: Performed By: #### C MP, CBC #### [address] RBC (Bld) [#/Vol] 4.02 10*6/uL Normal 3.60-5.00 [facility] Comment on above: Performed By: #### C MP, CBC #### [address] WBC (Bld) [#/Vol] 6.4 10*3/uL Normal 3.8-11.6 [facility] Comment on above: Performed By: #### C MP, CBC #### [address] Comprehensive Metabolic Pane usman 09-11-2022 Albumin [Mass/Vol] 4.5 g/dL Normal 3.5-5.7 [facility] Comment on above: Performed By: #### C MP, CBC #### [address] Albumin/Globulin [Mass ratio] 1.5 {ratio} Normal [facility] Comment on above: Performed By: #### C MP, CBC #### [address] ALP [Catalytic activity/Vol] 130 U/L High 34-104 [facility] Comment on above: Performed By: #### C MP, CBC #### [address] ALT [Catalytic activity/Vol] 59 U/L High 7-52 [facility] Comment on above: Performed By: #### C MP, CBC #### [address] Anion gap [Moles/Vol] Not performed Normal 6.0-15.0 [facility] Comment on above: Performed By: #### C MP, CBC #### [facility] [address] [place] [address] AST [Catalytic activity/Vol] 90 U/L High 13-39 [facility] Comment on above: Performed By: #### C MP, CBC #### [address] Bilirubin [Mass/Vol] 0.5 mg/dL Normal 0.3-1.0 [facility] Comment on above: Performed By: #### C MP, CBC #### [facility] [address] Calcium [Mass/Vol] 9.3 mg/dL Normal 8.6-10.3 [facility] Comment on above: Performed By: #### C MP, CBC #### [facility] [address] Chloride [Moles/Vol] 94 mmol/L Low 98-107 [facility] Comment on above: Performed By: #### C MP, CBC #### [facility] [address] CO2 [Moles/Vol] 28.7 mmol/L Normal 21.0-31.0 [facility] Comment on above: Performed By: #### C MP, CBC #### [address] Creatinine [Mass/Vol] 0.87 mg/dL Normal 0.60-1.20 [facility] Comment on above: Performed By: #### C MP, CBC #### [facility] [address] [place] [address] [place] Creatinine Clr Calc Pharmacy 104.46 [facility] Comment on above: Result Comment: PERF ORMED BY: [place] [address] PATHOLOGIST WIRE COINER EZRA MCCLAIN M.D. Performed By: #### C MP, CBC #### [facility] [address] [place] [address] [place] GFR/1.73 sq M.predicted MDRD (S/P/Bld) [Vol rate/Area] mL/min/{1.73_m2} [facility] Comment on above: Performed By: #### C MP, CBC #### [facility] [address] [place] [address] [place] Globulin (S) [Mass/Vol] 3.0 g/dL [facility] Comment on above: Performed By: #### C MP, CBC #### [facility] [address] Glucose [Mass/Vol] 222 mg/dL Significant change up 74-109 [facility] Comment on above: Result Comment: [facility] Glucose Reference Range is dependent on time and content of last meal. Glucose of more than 200 mg/dL in a nonstressed, ambulatory subject supports the diagnosis of Diabetes Mellitus. ADA recommended reference range Performed By: #### C MP, CBC #### [facility] [address] Potassium Normal 3.5-5.1 [facility] Comment on above: Result Comment: Spec imen hemolyzed, redraw requested Performed By: #### C MP, CBC #### [facility] [address] Protein [Mass/Vol] 7.5 g/dL Normal 6.4-8.9 [facility] Comment on above: Performed By: #### C MP, CBC #### [facility] [address] Sodium [Moles/Vol] 135 mmol/L Low 136-145 [facility] Comment on above: Performed By: #### C MP, CBC #### [address] Urea nitrogen [Mass/Vol] 28 mg/dL High 7-25 [facility] Comment on above: Performed By: #### C MP, CBC #### [address] [facility] echo transthoracicon [facility] echo transthoracic [facility] Main [place] [address] [place] [address] Echocardiogram Signed Patient: Carmen Bledsoe MR#: [id number] 9 : 1960 Acct:[id number] Age/Sex: 61 / F ADM Date: 09/10/22 Loc: 4N Room: 0R3830-8 Type: ADM IN Attending Dr: Marilyn Sun MD Ordering Provider: Marilyn Sun MD Date of Service: 09/10/2204/25/1327 [facility] echo transthoracic: Chest Pain/CHF Copies to: MD [...] Signed By: Maikol Siddiqui MD 09/11/22 1155 [facility] Glucose Poct Glucometerson 0 09-11-2022 Commemt1 Glu2: Cleaned Meter [facility] Comment on above: Result Comment: PERF ORMED BY: [facility] [address] [place] [address] PATHOLOGIST WIRE COINER EZRA MCCLAIN M.D. Performed By: #### C MP, CBC #### [facility] [address] Glucose [Mass/Vol] 236 mg/dL [facility] Comment on above: Result Comment: [facility] Glucose Reference Range is dependent on time and content of last meal. Glucose of more than 200 mg/dL in a nonstressed, ambulatory subject supports the diagnosis of Diabetes Mellitus. Performed By: #### C MP, CBC #### [facility] [address] [place] [address] [place] Glucose [Mass/Vol] 289 mg/dL Normal [facility] Comment on above: Result Comment: [facility] Glucose Reference Range is dependent on time and content of last meal. Glucose of more than 200 mg/dL in a nonstressed, ambulatory subject supports the diagnosis of Diabetes Mellitus. PERFORMED BY: [place] [address] PATHOLOGIST WIRE COINER EZRA MCCLAIN M.D. Performed By: #### H S TROP #### [place] [address] [place] Glucose [Mass/Vol] 297 mg/dL Normal [facility] Comment on above: Result Comment: [facility] Glucose Reference Range is dependent on time and content of last meal. Glucose of more than 200 mg/dL in a nonstressed, ambulatory subject supports the diagnosis of Diabetes Mellitus. PERFORMED BY: [place] [address] PATHOLOGIST WIRE COINER EZRA MCCLAIN M.D. Performed By: #### C MP, CBC #### [place] [address] [place] Glucose [Mass/Vol] 226 mg/dL Normal [facility] Comment on above: Result Comment: [facility] Glucose Reference Range is dependent on time and content of last meal. Glucose of more than 200 mg/dL in a nonstressed, ambulatory subject supports the diagnosis of Diabetes Mellitus. PERFORMED BY: [place] [address] PATHOLOGIST WIRE COINER EZRA MCCLAIN M.D. Performed By: #### G LULS #### Point of Care testing , Redraw Potassiumon 3 Potassium [Moles/Vol] 4.5 mmol/L Normal 3.5-5.1 [facility] Comment on above: Result Comment: PERF ORMED BY: [place] [address] PATHOLOGIST WIRE COINER EZRA MCCLAIN M.D. Performed By: #### H S TROP #### [address] Troponin I High Sensitivityo n 09-11-2022 Troponin I High Sensitivity 5.3 pg/mL Normal 0.0-15.0 [facility] Comment on above: Result Comment: PERF ORMED BY: [place] [address] PATHOLOGIST WIRE COINER EZRA MCCLAIN M.D. Performed By: #### C MP, CBC #### [facility] [address] [place] [address] A1C with Estimated Average G constantin 09-10-2022 Glucose [Mass/Vol] 128 mg/dL Normal [facility] Comment on above: Order Comment: Comme nt add on Result Comment: PERF ORMED BY: [place] [address] PATHOLOGIST WIRE COINER EZRA MCCLAIN M.D. Performed By: #### C MP, CBC #### [facility] [address] [place] [address] HbA1c (Bld) [Mass fraction] 6.1 % High 4.3-5.6 [facility] Comment on above: Order Comment: Comme nt add on Result Comment: Incr eased risk for diabetes: 5.7 - 6.4 diabetes: >6.4 glycemic control for adults with diabetes: <7.0 Performed By: #### C MP, CBC #### [facility] [address] [place] [address] Activated partial thrombopla stin time (aPTT) in platelet poor plasma by coagulation aOrdered By: Joo Ramos on 09-10-2022 aPTT Coag (PPP) [Time] 31.2 s 25.1-36.5 [facility] Alanine aminotransferase [En zymatic activity/volume] in Serum or PlasmaOrdered By: Joo Ramos on 09-10-2022 ALT [Catalytic activity/Vol] 50 U/L 7-52 [facility] Albumin [Mass/volume] in Ser um or Plasma by Bromocresol green (BCG) dye binding methoOrdered By: Joo Ramos on 09-10-2022 Albumin BCG dye [Mass/Vol] 4.4 g/dL 3.5-5.7 [facility] Alkaline phosphatase [Enzyma tic activity/volume] in Serum or PlasmaOrdered By: Joo Ramos on 09-10-2022 ALP [Catalytic activity/Vol] 121 U/L 34-104 [facility] Aspartate aminotransferase [ Enzymatic activity/volume] in Serum or PlasmaOrdered By: Joo Ramos on 09-10-2022 AST [Catalytic activity/Vol] 71 U/L 13-39 [facility] B-Type Natriuretic Peptideon 09-10-2022 Natriuretic peptide B (Bld) [Mass/Vol] 6.0 pg/mL Normal 5-100 [facility] Comment on above: Result Comment: PERF ORMED BY: [place] [address] PATHOLOGIST WIRE COINER EZRA MCCLAIN M.D. Performed By: #### C MP, CBC #### [facility] [address] Basic Metabolic Panelon 09-01 Anion gap [Moles/Vol] 13.7 mmol/L Normal 6.0-15.0 [facility] Comment on above: Performed By: #### C MP, CBC #### [facility] [address] [place] [id number] [place] Calcium [Mass/Vol] 9.6 mg/dL Normal 8.6-10.3 [facility] Comment on above: Performed By: #### C MP, CBC #### [facility] [address] [place] [id number] [place] Chloride [Moles/Vol] 99 mmol/L Normal 98-107 [facility] Comment on above: Performed By: #### C MP, CBC #### [facility] [address] [place] [address] [place] CO2 [Moles/Vol] 29.0 mmol/L Normal 21.0-31.0 [facility] Comment on above: Performed By: #### C MP, CBC #### [facility] [address] [place] [address] [place] Creatinine [Mass/Vol] 0.83 mg/dL Normal 0.60-1.20 [facility] Comment on above: Performed By: #### C MP, CBC #### [facility] [address] [place] [address] [place] Creatinine Clr Calc Pharmacy 109.50 Normal [facility] Comment on above: Result Comment: PERF ORMED BY: [facility] [address] [place] [address] PATHOLOGIST WIRE COINER EZRA MCCLAIN M.D. Performed By: #### C MP, CBC #### [facility] [address] [place] [address] [place] GFR/1.73 sq M.predicted MDRD (S/P/Bld) [Vol rate/Area] mL/min/{1.73_m2} Normal [facility] Comment on above: Performed By: #### C MP, CBC #### [facility] [address] [place] [address] [place] Glucose [Mass/Vol] 91 mg/dL Normal 74-109 [facility] Comment on above: Result Comment: [facility] Glucose Reference Range is dependent on time and content of last meal. Glucose of more than 200 mg/dL in a nonstressed, ambulatory subject supports the diagnosis of Diabetes Mellitus. ADA recommended reference range Performed By: #### C MP, CBC #### [facility] [address] [place] [address] [place] Potassium [Moles/Vol] 4.7 mmol/L Normal 3.5-5.1 [facility] Comment on above: Performed By: #### C MP, CBC #### [facility] [address] [place] [address] [place] Sodium [Moles/Vol] 137 mmol/L Normal 136-145 [facility] Comment on above: Performed By: #### C MP, CBC #### [facility] [address] [place] [address] [place] Urea nitrogen [Mass/Vol] 24 mg/dL Normal 7-25 [facility] Comment on above: Performed By: #### C MP, CBC #### [facility] [address] Basophils Auto (Bld) [#/Vol] Ordered By: Joo Ramos on 09-10-2022 Basophils (Bld) [#/Vol] 0.1 10*3/uL 0.0-0.2 [facility] Basophils/100 WBC Auto (Bld) Ordered By: Joo Ramos on 09-10-2022 Basophils/100 WBC (Bld) 1.1 % . [facility] Bilirubin Test strip Ql (U)O rdered By: Joo Ramos on 09-10-2022 Bilirubin Ql (U) Negative Negative [facility] Bilirubin.direct [Mass/volum e] in Serum or PlasmaOrdered By: Joo Ramos on 09-10-2022 Bilirubin.direct [Mass/Vol] 0.10 mg/dL 0.03-0.18 [facility] Bilirubin.total [Mass/volume ] in Serum or PlasmaOrdered By: Joo Ramos on 09-10-2022 Bilirubin [Mass/Vol] 0.4 mg/dL 0.3-1.0 [facility] BioFire Not Detectedon 09-10 BioFire Not Detected Not detected Normal Not Detecte [facility] Comment on above: Result Comment: This is a duplicate RP2.1 COVID (PCR) result to be used for statistical tracking purpose only. PERFORMED BY: [place] [address] PATHOLOGIST WIRE COINER EZRA MCCLAIN M.D. Performed By: #### C MP, CBC #### [facility] [address] COVID-19 Detected/Not Detect edOrdered By: Marilyn Sun on 09-10-2022 SARS-CoV-2 (COVID-19) RNA TERESO+non-probe Ql (Nph) Not detected Not Detecte [facility] Comment on above: This is a duplicate RP2.1 COVID (PCR) result to be used for statistical tracking purpose only. Calcium [Mass/volume] in Ser um or PlasmaOrdered By: Joo Ramos on 09-10-2022 Calcium [Mass/Vol] 9.6 mg/dL 8.6-10.3 [facility] Carbon dioxide, total [Moles /volume] in Serum or PlasmaOrdered By: Joo Ramos on 09-10-2022 CO2 [Moles/Vol] 29.0 mmol/L 21.0-31.0 [facility] Chloride [Moles/volume] in S caitlyn or PlasmaOrdered By: Joo Ramos on 09-10-2022 Chloride [Moles/Vol] 99 mmol/L 98-107 [facility] Cholesterol [Mass/volume] in Serum or PlasmaOrdered By: Marilyn Sun on 09-10-2022 Cholesterol [Mass/Vol] 169 mg/dL 140-200 [facility] Comment on above: Chol less than 200 m g/dl low riskChol 201-239 mg/dl borderline riskChol 240 mg/dl and greater high risk Cholesterol in LDL Calc [Mas s/Vol]Ordered By: Marilyn Sun on 09-10-2022 Cholesterol in LDL [Mass/Vol] 62 mg/dL 0-100 [facility] Comment on above: LDL ATP III CLASSIFI CATIONLDL less than 100 mg/dL OptimalLDL 100-129 mg/dL Near or above optimalLDL 130-159 mg/dL Borderline highLDL 160-189 mg/dL HighLDL greater than 189 mg/dL Very high Cholesterol in VLDL Calc [Ma ss/Vol]Ordered By: Marilyn Sun on 09-10-2022 Cholesterol in VLDL [Mass/Vol] 34 mg/dL [facility] Color Auto (U)Ordered By: Tod Ramos on 09-10-2022 Color (U) Yellow Yellow [facility] Complete Blood Count Auto Di ffon 09-10-2022 Basophils (Bld) [#/Vol] 0.1 10*3/uL Normal 0.0-0.2 [facility] Comment on above: Result Comment: PERF ORMED BY: [facility] [address] [place] [address] PATHOLOGIST WIRE COINER EZRA MCCLAIN M.D. Performed By: #### C MP, CBC #### [facility] [address] [place] [address] [place] Basophils/100 WBC (Bld) 1.1 % Normal . [facility] Comment on above: Performed By: #### C MP, CBC #### [facility] [address] Eosinophils (Bld) [#/Vol] 0.1 10*3/uL Normal 0.0-0.45 [facility] Comment on above: Performed By: #### C MP, CBC #### [facility] [address] Eosinophils/100 WBC (Bld) 1.6 % Normal . [facility] Comment on above: Performed By: #### C MP, CBC #### [address] Erythrocyte distribution width (RBC) [Ratio] 17.5 % High 11.9-15.3 [facility] Comment on above: Performed By: #### C MP, CBC #### [address] Hematocrit (Bld) [Volume fraction] 37.7 % Normal 34.0-46.4 [facility] Comment on above: Performed By: #### C MP, CBC #### [address] Hemoglobin (Bld) [Mass/Vol] 12.5 g/dL Normal 11.8-15.4 [facility] Comment on above: Performed By: #### C MP, CBC #### [facility] [address] [place] [address] [place] Lymphocytes (Bld) [#/Vol] 1.1 10*3/uL Normal 1.00-4.8 [facility] Comment on above: Performed By: #### C MP, CBC #### [place] [address] [place] Lymphocytes/100 WBC (Bld) 21.5 % Normal . [facility] Comment on above: Performed By: #### C MP, CBC #### [facility] [address] MCH (RBC) [Entitic mass] 31.8 pg Normal 24.7-34.3 [facility] Comment on above: Performed By: #### C MP, CBC #### [facility] [address] MCV (RBC) [Entitic vol] 96.1 fL Normal 80-100 [facility] Comment on above: Performed By: #### C MP, CBC #### [facility] [address] Mean Corpuscular HGB Conc 33.1 g/dL Normal 32.0-35.0 [facility] Comment on above: Performed By: #### C MP, CBC #### [address] Monocytes (Bld) [#/Vol] 0.3 10*3/uL Normal 0.0-0.8 [facility] Comment on above: Performed By: #### C MP, CBC #### [place] [address] [place] Monocytes/100 WBC (Bld) 18.14 % Normal 0.00-20.00 [facility] Comment on above: Performed By: #### C MP, CBC #### [place] [address] [place] Monocytes/100 WBC (Bld) 5.1 % Normal . [facility] Comment on above: Performed By: #### C MP, CBC #### [facility] [address] [place] [address] [place] Neutrophils (Bld) [#/Vol] 3.7 10*3/uL Normal 1.8-7.7 [facility] Comment on above: Performed By: #### C MP, CBC #### [address] Neutrophils/100 WBC (Bld) 70.7 % Normal . [facility] Comment on above: Performed By: #### C MP, CBC #### [place] [id number] [place] NRBC% 0.3 /100{WBC} Normal 0-0.5 [facility] Comment on above: Performed By: #### C MP, CBC #### [address] Platelet mean volume (Bld) [Entitic vol] 7.2 fL Normal 6.3-10.7 [facility] Comment on above: Performed By: #### C MP, CBC #### [address] Platelets (Bld) [#/Vol] 180 10*3/uL Normal 150-450 [facility] Comment on above: Performed By: #### C MP, CBC #### [address] RBC (Bld) [#/Vol] 3.92 10*6/uL Normal 3.60-5.00 [facility] Comment on above: Performed By: #### C MP, CBC #### [address] WBC (Bld) [#/Vol] 5.2 10*3/uL Normal 3.8-11.6 [facility] Comment on above: Performed By: #### C MP, CBC #### [address] Creatine Kinaseon 09-10-2022 CK [Catalytic activity/Vol] 39 U/L Normal 30-223 [facility] Comment on above: Performed By: #### C MP, CBC #### [place] [address] [place] Creatine kinase [Enzymatic a ctivity/volume] in Serum or PlasmaOrdered By: Joo Ramos on 09-10-2022 CK [Catalytic activity/Vol] 39 U/L [facility] Creatinine [Mass/volume] in Serum or PlasmaOrdered By: Joo Ramos on 09-10-2022 Creatinine [Mass/Vol] 0.83 mg/dL 0.60-1.20 [facility] ECG 12 lead ECGon 09-10-2022 ECG 12 lead ECG [facility] Main [address] [address] Electrocardiograph Report Signed Patient: Carmen Bledsoe MR#: [id number] 9 : 1960 Acct:[id number] Age/Sex: 61 / F ADM Date: 09/10/22 Loc: Room: [address] [place] [address] Type: ADM IN Attending Dr: Marilyn Sun [...] Maikol Siddiqui MD 0 09/11/22 0653 Normal [facility] ECG 12 lead ECG [facility] Main [place] [id number] Electrocardiograph Report Signed Patient: Carmen Bledsoe MR#: [id number] 9 : 1960 Acct:[id number] Age/Sex: 61 / F ADM Date: 09/10/22 Loc: Room: [address] [place] [address] Type: ADM IN Attending Dr: Marilyn Sun [...] ECGs available Confirmed by Joo Ramos DO ([id number]) on 09/10/2022 6:56:24 PM Referred By: Electronically Signed By:Joo Ramos DO Transcribed By: MUS Signed By Joo Ramos DO 3 1856 Normal [facility] Eosinophils Auto (Bld) [#/Vo l]Ordered By: Joo Ramos on 09-10-2022 Eosinophils (Bld) [#/Vol] 0.1 10*3/uL 0.0-0.45 [facility] Eosinophils/100 WBC Auto (Bl d)Ordered By: Joo Ramos on 09-10-2022 Eosinophils/100 WBC (Bld) 1.6 % . [facility] Erythrocyte distribution wid th Auto (RBC) [Ratio]Ordered By: Joo Ramos on 09-10-2022 Erythrocyte distribution width (RBC) [Ratio] 17.5 % 11.9-15.3 [facility] Globulin Calc (S) [Mass/Vol] Ordered By: Joo Ramos on 09-10-2022 Globulin (S) [Mass/Vol] 2.7 g/dL [facility] Glucose Poct Glucometerson 0 09-10-2022 Glucose [Mass/Vol] 188 mg/dL Normal [facility] Comment on above: Result Comment: [facility] Glucose Reference Range is dependent on time and content of last meal. Glucose of more than 200 mg/dL in a nonstressed, ambulatory subject supports the diagnosis of Diabetes Mellitus. PERFORMED BY: [facility] [address] [place] [address] PATHOLOGIST WIRE COINER EZRA MCCLAIN M.D. Performed By: #### G LULS #### Point of Care testing , Glucose [Mass/Vol] 118 mg/dL Normal [facility] Comment on above: Result Comment: [facility] Glucose Reference Range is dependent on time and content of last meal. Glucose of more than 200 mg/dL in a nonstressed, ambulatory subject supports the diagnosis of Diabetes Mellitus. PERFORMED BY: [place] [address] PATHOLOGIST WIRE COINER EZRA MCCLAIN M.D. Performed By: #### G LULS #### Point of Care testing , Glucose [Mass/volume] in Ser um or PlasmaOrdered By: Joo Ramos on 09-10-2022 Glucose [Mass/Vol] 91 mg/dL 74-109 [facility] Comment on above: ADA recommended [...] from glycated hemoglobin (Bld) [Mass/Vol] 128 mg/dL [facility] Hematocrit Auto (Bld) [Volum e fraction]Ordered By: Joo Ramos on 09-10-2022 Hematocrit (Bld) [Volume fraction] 37.7 % 34.0-46.4 [facility] Hemoglobin A1c percentageOrd ered By: Marilyn Sun on 09-10-2022 HbA1c (Bld) [Mass fraction] 6.1 % 4.3-5.6 [facility] Comment on above: Increased risk for d iabetes: 5.7 - 6.4diabetes: >6.4glycemic control for adults with diabetes: <7.0 Hemoglobin [Mass/volume] in BloodOrdered By: Joo Ramos on 09-10-2022 Hemoglobin (Bld) [Mass/Vol] 12.5 g/dL 11.8-15.4 [facility] Hepatic Panelon 09-10-2022 Albumin [Mass/Vol] 4.4 g/dL Normal 3.5-5.7 [facility] Comment on above: Performed By: #### C MP, CBC #### [facility] [address] [place] [address] [place] Albumin/Globulin [Mass ratio] 1.6 {ratio} Normal [facility] Comment on above: Performed By: #### C MP, CBC #### [facility] [address] ALP [Catalytic activity/Vol] 121 U/L High 34-104 [facility] Comment on above: Performed By: #### C MP, CBC #### [facility] [address] ALT [Catalytic activity/Vol] 50 U/L Normal 7-52 [facility] Comment on above: Performed By: #### C MP, CBC #### [facility] [address] [place] [address] AST [Catalytic activity/Vol] 71 U/L High 13-39 [facility] Comment on above: Performed By: #### C MP, CBC #### [facility] [address] [place] [address] Bilirubin [Mass/Vol] 0.4 mg/dL Normal 0.3-1.0 [facility] Comment on above: Performed By: #### C MP, CBC #### [address] Bilirubin,Indirect 0.3 mg/dL Normal [facility] Comment on above: Performed By: #### C MP, CBC #### [facility] [address] [place] [address] Bilirubin.indirect [Mass/Vol] 0.10 mg/dL Normal 0.03-0.18 [facility] Comment on above: Performed By: #### C MP, CBC #### [facility] [address] [place] [address] [place] Globulin (S) [Mass/Vol] 2.7 g/dL Normal [facility] Comment on above: Performed By: #### C MP, CBC #### [facility] [address] [place] [address] Protein [Mass/Vol] 7.1 g/dL Normal 6.4-8.9 [facility] Comment on above: Performed By: #### C MP, CBC #### [facility] [address] [place] [address] [place] Ketones Auto test strip (U) [Mass/Vol]Ordered By: Joo Ramos on 09-10-2022 Ketones (U) [Mass/Vol] Negative Negative [facility] - Chemistry and C hemistry - challengeOrdered By: Joo Ramos on 09-10-2022 GFR/1.73 sq M.predicted MDRD (S/P/Bld) [Vol rate/Area] mL/min/{1.73_m2} [facility] - CoagulationOrde red By: Joo Ramos on 09-10-2022 PT Coag (PPP) [Time] 11.8 s 9.0-12.9 [facility] Leukocytes [#/volume] correc jeffrey for nucleated erythrocytes in Blood by Automated counOrdered By: Joo Ramos on 09-10-2022 WBC corrected for nucl RBC Auto (Bld) [#/Vol] 5.2 10*3/uL 3.8-11.6 [facility] Lipid Panelon 09-10-2022 Cholesterol [Mass/Vol] 169 mg/dL Normal 140-200 [facility] Comment on above: Order Comment: Comme nt add on Result Comment: Chol less than 200 mg/dl low risk Chol 201-239 mg/dl borderline risk Chol 240 mg/dl and greater high risk Performed By: #### C MP, CBC #### [facility] [address] Cholesterol in HDL [Mass/Vol] 73 mg/dL Normal 35-85 [facility] Comment on above: Order Comment: Comme nt add on Result Comment: HDL CHOL ATP-III CLASSIFICATION Cardiovascular Risk HDL > or equal to 60 mg/dL LOW HDL < 40 mg/dL HIGH Performed By: #### C MP, CBC #### [facility] [address] Cholesterol.total/Ch olesterol in HDL [Mass ratio] 2.3 {ratio} Normal <5.0 [facility] Comment on above: Order Comment: Comme nt add on Result Comment: PERF ORMED BY: [facility] [facility] [place] [id number] PATHOLOGIST WIRE COINER EZRA MCCLAIN M.D. Performed By: #### C MP, CBC #### [facility] [address] LDL Cholesterol,Calculat ed 62 mg/dL Normal 0-100 [facility] Comment on above: Order Comment: Comme nt add on Result Comment: LDL ATP III CLASSIFICATION LDL less than 100 mg/dL Optimal LDL 100-129 mg/dL Near or above optimal LDL 130-159 mg/dL Borderline high LDL 160-189 mg/dL High LDL greater than 189 mg/dL Very high Performed By: #### C MP, CBC #### [facility] [address] Triglyceride w/Reflex 172 mg/dL High 0-149 [facility] Comment on above: Order Comment: Comme nt add on Result Comment: TRIG ATP III CLASSIFICATION TRIG less than 150 mg/dL Normal TRIG 150-199 mg/dL Borderline high TRIG 200-500 mg/dL High TRIG greater than 500 mg/dL Very high Standard traceable to the Center for Disease Conrtrol and Prevention (CDC) test method. Performed By: #### C MP, CBC #### [facility] [address] VLDL CHOLESTEROL 34 mg/dL Normal [facility] Comment on above: Order Comment: Comme nt add on Performed By: #### C MP, CBC #### [facility] [address] Lymphocytes Auto (Bld) [#/Vo l]Ordered By: Joo Ramos on 09-10-2022 Lymphocytes (Bld) [#/Vol] 1.1 10*3/uL 1.00-4.8 [facility] Lymphocytes/100 WBC Auto (Bl d)Ordered By: Joo Ramos on 09-10-2022 Lymphocytes/100 WBC (Bld) 21.5 % . [facility] MCH Auto (RBC) [Entitic mass ]Ordered By: Joo Ramos on 09-10-2022 MCH (RBC) [Entitic mass] 31.8 pg 24.7-34.3 [facility] MCHC Auto (RBC) [Mass/Vol]Or dered By: Joo Ramos on 09-10-2022 MCHC (RBC) [Mass/Vol] 33.1 g/dL 32.0-35.0 [facility] MCV Auto (RBC) [Entitic vol] Ordered By: Joo Ramos on 09-10-2022 MCV (RBC) [Entitic vol] 96.1 fL 80-100 [facility] Monocyte distribution width [Entitic volume] in Blood by AutomatedOrdered By: Joo Ramos on 09-10-2022 Monocyte distribution width Auto (Bld) [Entitic vol] 18.14 % 0.00-20.00 [facility] Monocytes Auto (Bld) [#/Vol] Ordered By: Joo Ramos on 09-10-2022 Monocytes (Bld) [#/Vol] 0.3 10*3/uL 0.0-0.8 [facility] Monocytes/100 WBC Auto (Bld) Ordered By: Joo Ramos on 09-10-2022 Monocytes/100 WBC (Bld) 5.1 % . [facility] Natriuretic peptide B [Mass/ Vol]Ordered By: Joo Ramos on 09-10-2022 Natriuretic peptide B (Bld) [Mass/Vol] 6.0 pg/mL 5-100 [facility] Neutrophils Auto (Bld) [#/Vo l]Ordered By: Joo Ramos on 09-10-2022 Neutrophils (Bld) [#/Vol] 3.7 10*3/uL 1.8-7.7 [facility] Neutrophils/100 WBC Auto (Bl d)Ordered By: Joo Ramos on 09-10-2022 Neutrophils/100 WBC (Bld) 70.7 % . [facility] Nitrite Test strip Ql (U)Ord ered By: Joo Ramos on 09-10-2022 Nitrite Ql (U) Negative Negative [facility] No Panel InformationOrdered By: Joo Ramos on 09-10-2022 Pharmacy Creatinine Clearance (Chem 109.50 [facility] Nucleated erythrocytes [Pres ence] in Blood by Automated countOrdered By: Joo Ramos on 09-10-2022 Nucleated RBC Auto Ql (Bld) 0.3 /100{WBC} 0-0.5 [facility] Partial Thromboplastin Timeo n 09-10-2022 aPTT Coag (Bld) [Time] 31.2 s Normal 25.1-36.5 [facility] Comment on above: Result Comment: PERF ORMED BY: [place] [address] PATHOLOGIST WIRE COINER EZRA MCCLAIN M.D. Performed By: #### C MP, CBC #### [address] Platelet mean volume Auto (B ld) [Entitic vol]Ordered By: Joo Ramos on 09-10-2022 Platelet mean volume (Bld) [Entitic vol] 7.2 fL 6.3-10.7 [facility] Platelet poor plasma interna tional normalized ratio (INR) by coagulation assay (relatOrdered By: Joo Ramos on 09-10-2022 INR Coag (PPP) [Relative time] 1.0 {INR} [facility] Comment on above: INR Therapeutic Rang [...] 09-10-2022 Platelets (Bld) [#/Vol] 180 10*3/uL 150-450 [facility] Potassium [Moles/volume] in Serum or PlasmaOrdered By: Joo Ramos on 09-10-2022 Potassium [Moles/Vol] 4.7 mmol/L 3.5-5.1 [facility] Protein Auto test strip (U) [Mass/Vol]Ordered By: Joo Ramos on 09-10-2022 Protein (U) [Mass/Vol] Negative Negative [facility] Protein [Mass/volume] in Ser um or PlasmaOrdered By: Joo Ramos on 09-10-2022 Protein [Mass/Vol] 7.1 g/dL 6.4-8.9 [facility] Prothrombin Time INRon 09-10 INR Coag (PPP) [Relative time] 1.0 {INR} Normal [facility] Comment on above: Result Comment: INR [...] Performed By: #### C MP, CBC #### [facility] [address] PT Coag (PPP) [Time] 11.8 s Normal 9.0-12.9 [facility] Comment on above: Performed By: #### C MP, CBC #### [facility] [address] RBC Auto (Bld) [#/Vol]Ordere d By: Joo Ramos on 09-10-2022 RBC (Bld) [#/Vol] 3.92 10*6/uL 3.60-5.00 [facility] Respiratory (Upper) Panel, P CRon 09-10-2022 Respiratory [...] COVID-19 Detected/Not Detected Not detected PERFORMED BY: [place] [address] PATHOLOGIST WIRE COINER EZRA MCCLAIN M.D. [facility] Comment on above: Performed By: #### C MP, CBC #### [facility] [address] [place] [id number] [facility] Respiratory pathogens DNA an d RNA panel - Nasopharynx by TERESO with non-probe detectionOrdered By: Marilyn Sun on 09-10-2022 Respiratory pathogens DNA and RNA panel TERESO+non-probe (Nph) [facility] Serum or plasma albumin/glob ulin mass ratioOrdered By: Joo Ramos on 09-10-2022 Albumin/Globulin [Mass ratio] 1.6 {ratio} [facility] Serum or plasma anion gap de terminationOrdered By: Joo Ramos on 09-10-2022 Anion gap [Moles/Vol] 13.7 mmol/L 6.0-15.0 [facility] Serum or plasma high density lipoprotein (HDL) cholesterol measurementOrdered By: Marilyn Sun on 09-10-2022 Cholesterol in HDL [Mass/Vol] 73 mg/dL 35-85 [facility] Comment on above: HDL CHOL ATP-III CLA SSIFICATION Cardiovascular RiskHDL > or equal to 60 mg/dL LOWHDL < 40 mg/dL HIGH Serum or plasma non-glucuron idated bilirubin measurement (mass/volume)Ordered By: Joo Ramos on 09-10-2022 Bilirubin.indirect [Mass/Vol] 0.3 mg/dL [facility] Serum or plasma total choles terol/high density lipoprotein (HDL) cholesterol mass ratOrdered By: Marilyn Sun on 09-10-2022 Cholesterol.total/Ch olesterol in HDL [Mass ratio] 2.3 {ratio} <5.0 [facility] Sodium [Moles/volume] in Ser um or PlasmaOrdered By: Joo Ramos on 09-10-2022 Sodium [Moles/Vol] 137 mmol/L 136-145 [facility] Specific gravity Auto test s trip (U) [Rel density]Ordered By: Joo Ramos on 09-10-2022 Specific gravity (U) [Rel density] 1.005 1.001-1.030 [facility] Triglyceride [Mass/volume] i n Serum or PlasmaOrdered By: Marilyn Sun on 09-10-2022 Triglyceride [Mass/Vol] 172 mg/dL 0-149 [facility] Comment on above: TRIG ATP III CLASSIF ICATIONTRIG less than 150 mg/dL NormalTRIG 150-199 mg/dL Borderline highTRIG 200-500 mg/dL High TRIG greater than 500 mg/dL Very highStandard traceable to the Center for Disease Conrtrol and Prevention (CDC) test method. Troponin I High Sensitivityo n 09-10-2022 Troponin I High Sensitivity 6.3 pg/mL Normal 0.0-15.0 [facility] Comment on above: Result Comment: PERF ORMED BY: [facility] [address] [place] [address] PATHOLOGIST WIRE COINER EZRA MCCLAIN M.D. Performed By: #### H S TROP #### [facility] [address] [place] [address] Troponin I High Sensitivity 6.6 pg/mL Normal 0.0-15.0 [facility] Comment on above: Result Comment: PERF ORMED BY: [facility] [address] [place] [address] PATHOLOGIST WIRE COINER EZRA MCCLAIN M.D. Performed By: #### H S TROP #### [facility] [address] [place] [address] Troponin I High Sensitivity 6.3 pg/mL Normal 0.0-15.0 [facility] Comment on above: Result Comment: PERF ORMED BY: [place] [address] PATHOLOGIST WIRE COINER EZRA MCCLAIN M.D. Performed By: #### C MP, CBC #### [facility] [address] [place] [address] Troponin I.cardiac [Mass/vol ume] in Serum or Plasma by Detection limit <= 0.01 ng/Ordered By: Marilyn Sun on 09-10-2022 Troponin I.cardiac DL <= 0.01 ng/mL [Mass/Vol] 5.3 pg/mL 0.0-15.0 [facility] Troponin I.cardiac [Mass/vol ume] in Serum or Plasma by Detection limit <= 0.01 ng/Ordered By: Joo Ramos on 09-10-2022 Troponin I.cardiac DL <= 0.01 ng/mL [Mass/Vol] 6.3 pg/mL 0.0-15.0 [facility] Urea nitrogen [Mass/volume] in Serum or PlasmaOrdered By: Joo Ramos on 09-10-2022 Urea nitrogen [Mass/Vol] 24 mg/dL 7-25 [facility] Urinalysison 09-10-2022 Appearance (U) Clear Normal Clear [facility] Comment on above: Order Comment: Name Collection Type:: Clean-Voided Midstream Performed By: #### C MP, CBC #### [facility] [address] [place] [id number] [place] Bilirubin,Urine Negative Normal Negative [facility] Comment on above: Order Comment: Name Collection Type:: Clean-Voided Midstream Performed By: #### C MP, CBC #### [facility] [address] [place] [address] [place] Color (U) Yellow Normal Yellow [facility] Comment on above: Order Comment: Name Collection Type:: Clean-Voided Midstream Performed By: #### C MP, CBC #### [facility] [address] [place] [id number] [place] Glucose Ql (U) Normal Normal Normal [facility] Comment on above: Order Comment: Name Collection Type:: Clean-Voided Midstream Performed By: #### C MP, CBC #### [facility] [address] [place] [id number] [place] Ketones Ql (U) Negative Normal Negative [facility] Comment on above: Order Comment: Name Collection Type:: Clean-Voided Midstream Performed By: #### C MP, CBC #### [facility] [address] [place] [address] [place] Leukocyte esterase Test strip Ql (U) Negative Normal Negative [facility] Comment on above: Order Comment: Name Collection Type:: Clean-Voided Midstream Performed By: #### C MP, CBC #### [facility] [address] [place] [id number] [place] Nitrite,Urine Negative Normal Negative [facility] Comment on above: Order Comment: Name Collection Type:: Clean-Voided Midstream Performed By: #### C MP, CBC #### [place] [address] [place] Occult Blood,Urine Negative Normal Negative [facility] Comment on above: Order Comment: Name Collection Type:: Clean-Voided Midstream Result Comment: PERF ORMED BY: [place] [address] PATHOLOGIST WIRE COINER EZRA MCCLAIN M.D. Performed By: #### C MP, CBC #### [address] pH (U) 5.5 [pH] Normal 5.0-9.0 [facility] Comment on above: Order Comment: Name Collection Type:: Clean-Voided Midstream Performed By: #### C MP, CBC #### [place] [address] [place] Protein,Urine Negative Normal Negative [facility] Comment on above: Order Comment: Name Collection Type:: Clean-Voided Midstream Performed By: #### C MP, CBC #### [address] Specificy [place],Urine 1.005 Normal 1.001-1.030 [facility] Comment on above: Order Comment: Name Collection Type:: Clean-Voided Midstream Performed By: #### C MP, CBC #### [place] [address] [place] Urobilinogen,Urine Normal Normal Normal [facility] Comment on above: Order Comment: Name Collection Type:: Clean-Voided Midstream Performed By: #### C MP, CBC #### [address] Urine clarity by refractomet ry automatedOrdered By: Joo Ramos on 09-10-2022 Clarity Refractometry automated (U) Clear Clear [facility] Urine glucose measurement by automated test strip (mass/volume)Ordered By: Joo Ramos on 09-10-2022 Glucose Auto test strip (U) [Mass/Vol] Normal mg/dL Normal [facility] Urine hemoglobin detection b y automated test stripOrdered By: Joo Ramos on 09-10-2022 Hemoglobin Auto test strip Ql (U) Negative Negative [facility] Urine leukocyte esterase det ection by automated test stripOrdered By: Joo Ramos on 09-10-2022 Leukocyte esterase Auto test strip Ql (U) Negative Negative [facility] Urobilinogen Auto test strip (U) [Mass/Vol]Ordered By: Joo Ramos on 09-10-2022 Urobilinogen (U) [Mass/Vol] Normal mg/dL Normal [facility] WBC Auto (Bld) [#/Vol]Ordere d By: Joo Ramos on 09-10-2022 WBC (Bld) [#/Vol] 5.2 10*3/uL 3.8-11.6 [facility] XR chest 2V*on 09-10-2022 XR chest 2V* [facility] [place] [address] XRay Report Signed Patient: Carmen Bledsoe MR#: [id number] 9 : 1960 Acct:[id number] Age/Sex: 61 / F ADM Date: 09/10/22 [...] PNEUMONIA. Impression dictated by: Jacques Vicente Jr., D.O.09/10/2022 11:55 AM Dictation Location: [place] [address] Transcribed By: [facility] 09/10/22 1155 Dictated By: Jacques Vicente Jr, DO 09/10/22 1155 Signed By: 09/10/22 1155 Normal [facility] pH Auto test strip (U)Ordere d By: Joo Ramos on 09-10-2022 pH (U) 5.5 [pH] 5.0-9.0 [facility] CHEMISTRYOrdered By: SYSTEM SYSTEM on 09-06-2022 Anion gap [Moles/Vol] 12 mmol/L Normal 6 - 16 mEq/L [facility] Calcium [Mass/Vol] 8.9 mg/dL Normal 8.9 - 11.1 mg/dL [facility] Chloride [Moles/Vol] 96 mmol/L Low 101 - 111 mmol/ L [facility] CO2 [Moles/Vol] 29 mmol/L Normal 21 - 31 mmol/L [facility] Creatinine [Mass/Vol] 0.9 mg/dL Normal 0.5 - 1.3 mg/dL [facility] Remisol GFR/1.73 sq M.predicted among blacks MDRD (S/P/Bld) [Vol rate/Area] mL/min/1.73 m2 Normal >=59mL/min/1.73 m2 [facility] Chem S GFR/1.73 sq M.predicted among non-blacks MDRD (S/P/Bld) [Vol rate/Area] mL/min/1.73 m2 Normal >=59mL/min/1.73 m2 [facility] Chem S Glucose [Mass/Vol] 102 mg/dL Normal [...] g/dL Normal 3.3 - 5.0 gm/dL [facility] Remisol Albumin/Globulin [Mass ratio] 1.2 {ratio} Normal [...] [Vol rate/Area] mL/min/1.73 m2 Normal >=59mL/min/1.73 m2 [facility] Chem S GFR/1.73 sq M.predicted among non-blacks MDRD (S/P/Bld) [Vol rate/Area] mL/min/1.73 m2 Normal >=59mL/min/1.73 m2 [facility] S Globulin (S) [Mass/Vol] 3.5 g/dL Normal 1.4 - 4.0 gm/dL [facility] Remisol Glucose [Mass/Vol] 80 mg/dL Normal 55 - 199 mg/dL [facility] Remisol Potassium [Moles/Vol] 3.3 mmol/L Low 3.5 - 5.3 mmol/L [facility] Remisol Protein [Mass/Vol] 7.6 g/dL Normal 6.0 - 7.8 gm/dL [facility] Remisol Sodium [Moles/Vol] 132 mmol/L Low 135 [...] 19.0 mcg/mL [facility] Remisol CHEMISTRYOrdered By: Alfredo salcidoolagustavo on 08-20-2022 HbA1c (Bld) [Mass fraction] 6.3 [...] 4.5 E12/L Normal 4.3 - 5.9 E12/L [facility] HemeAutoSS WBC corrected for nucl RBC Auto (Bld) [#/Vol] 7.1 E9/L Normal 4.0 - 11.0 E9/L [facility] HemeAutoSS XR CHEST (2 VW)on 05-21-2021 Negative [...] and upper abdomen normal. IMPRESSION: Negative chest. gAuto Phone: Radiology Study observation (narrative) gAuto Phone: XR CHEST (2 VW)Ordered By: Chester Minor on 05-21-2021 gAuto Phone: COVID-19on 03-17-2020 SARS-CoV-2, Rapid Not Detected Not Detected [place], [place] Comment on above: Rapid NAAT: The [...] management decisions. Fact sheet for Healthcare Providers: https://www.fda.gov/media/478922/download Fact sheet for Patients: https://www.fda.gov/media/283617/download Methodology: Isothermal Nucleic Acid Amplification Source .THROAT [place] Otheron 03-17-2020 SARS-CoV-2 [place] PELVIS COMPLETEon 020 1. 8 cm intrauterine fibroid. 2. Likely vascular polyp in the cervix. [place] EXAM: [place] PELVIS COMPLETE HISTORY: N85.2. [...] ovary: 2.8 x 2.0 x 1.3 cm. [place] Dre, Mhpn Incoming Radiant Results From [facility] - 02/19/2020 4:19 PM EDT EXAM: US [...] 2. Likely vascular polyp in the cervix. [place] BUN & creatinineon 0 Creatinine [Mass/Vol] 0.81 mg/dL 0.5 - 0.9 mg/dL [place] GFR >60 >60 mL/min [place] GFR Non- >60 >60 mL/min [place] GFR/1.73 sq M predicted among non-blacks MDRD (S/P/Bld) [Vol rate/Area] [place] Comment on above: Average GFR for 50-5 9 years old: 93 mL/min/1.73sq m Chronic Kidney Disease: <60 mL/min/1.73sq m Kidney failure: <15 mL/min/1.73sq m eGFR calculated using average adult body mass. Additional eGFR calculator available at: http://www.NeuString/multiple_crcl_2012.htm GFR/1.73 sq M predicted among non-blacks MDRD (S/P/Bld) [Vol rate/Area] NOT REPORTED [place] Urea nitrogen [Mass/Vol] 15 mg/dL 6 - 20 mg/dL [place] ABDOMEN PELVIS W IV CONTR AST Additional Contrast? Oralon 02-07-2020 No acute process in the abdomen or pelvis. Enlarged, fatty liver. Prominent, bulky uterus, a nonspecific finding that may be related to underlying fibroids or adenomyosis. [place] EXAMINATION: CT ABDOMEN PELVIS W IV [...] Chronic degenerative changes in the thoracolumbar spine. [place] Dre, Mhpn Incoming Radiant Results From [facility]/[employer] 02/07/2020 3:09 PM EDT EXAMINATION: CT ABDOMEN [...] be related to underlying fibroids or adenomyosis. [place] CBC Auto Differentialon 0 Basophils (Bld) [#/Vol] 0.00 10*3/uL [place] Basophils/100 WBC (Bld) 0 % 0 - 2 % [place] Differential Type YES [place] Eosinophils (Bld) [#/Vol] 0.10 10*3/uL [place] Eosinophils/100 WBC (Bld) 1 % 0 - 5 % [place] Erythrocyte distribution width (RBC) [Ratio] 15.7 % High 12.1 - 15.2 % [place] Hematocrit (Bld) [Volume fraction] 37.6 % 36 - 46 % [place] Hemoglobin (Bld) [Mass/Vol] 12.4 g/dL 12 - 16 g/dL [place] Interpretation and review of laboratory results Abnormal [place] Lymphocytes (Bld) [#/Vol] 1.40 10*3/uL [place] Lymphocytes/100 WBC (Bld) 20 % 15 - 40 % [place] MCH (RBC) [Entitic mass] 29.0 pg 26 - 34 pg [place] MCHC (RBC) [Mass/Vol] 33.0 g/dL 31 - 37 g/dL [place] MCV (RBC) [Entitic vol] 87.9 fL 80 - 100 fL [place] Monocytes (Bld) [#/Vol] 0.40 10*3/uL [place] Monocytes/100 WBC (Bld) 6 % 4 - 8 % [place] Platelet mean volume (Bld) [Entitic vol] NOT REPORTED 6 - 12 fL [place] Platelets (Bld) [#/Vol] NOT REPORTED [place] Platelets (Bld) [#/Vol] 268 10*3/uL [place] RBC (Bld) [#/Vol] 4.28 10*6/uL 4 - 5.2 m/uL [place] RBC morphology finding Nom (Bld) NOT REPORTED [place] Segmented neutrophils/100 WBC (Bld) 73 % 47 - 75 % [place] Segs Absolute 5.10 [place] WBC (Bld) [#/Vol] 7.1 10*3/uL [place] WBC (Bld) [#/Vol] NOT REPORTED per 100 WBC [place] WBC Morphology NOT REPORTED [place] Comprehensive Metabolic Pane usman 09-06-2019 Albumin [Mass/Vol] 4.5 g/dL 3.5 - 5.2 g/dL [place] Albumin/Globulin [Mass ratio] NOT REPORTED [place] ALP [Catalytic activity/Vol] 92 U/L 35 - 104 U/L [place] ALT [Catalytic activity/Vol] 28 U/L 5 - 33 U/L [place] Anion gap [Moles/Vol] 13 mmol/L 9 - 17 mmol/L [place] AST [Catalytic activity/Vol] 19 U/L <32 [place] Bilirubin Ql (U) 0.40 mg/dL 0.3 - 1.2 mg/dL [place] Bun/Cre Ratio 26 High [place] Calcium [Mass/Vol] 10.2 mg/dL 8.6 - 10.4 mg/dL [place] Chloride [Moles/Vol] 99 mmol/L 98 - 107 mmol/L [place] CO2 [Moles/Vol] 28 mmol/L 20 - 31 mmol/L [place] Creatinine [Mass/Vol] 0.86 mg/dL 0.5 - 0.9 mg/dL [place] GFR >60 >60 mL/min [place] GFR Non- >60 >60 mL/min [place] GFR/1.73 sq M predicted among non-blacks MDRD (S/P/Bld) [Vol rate/Area] NOT REPORTED [place] GFR/1.73 sq M predicted among non-blacks MDRD (S/P/Bld) [Vol rate/Area] [place] Comment on above: Average GFR for 50-5 9 years old: 93 mL/min/1.73sq m Chronic Kidney Disease: <60 mL/min/1.73sq m Kidney failure: <15 mL/min/1.73sq m eGFR calculated using average adult body mass. Additional eGFR calculator available at: http://www.Bomboard.Farmol/multiple_crcl_2012.htm Glucose [Mass/Vol] 121 mg/dL High 70 - 99 mg/dL [place] Potassium [Moles/Vol] 4.6 mmol/L 3.7 - 5.3 mmol/L [place] Protein [Mass/Vol] 7.7 g/dL 6.4 - 8.3 g/dL [place] Sodium [Moles/Vol] 140 mmol/L 135 - 144 mmol/L [place] Urea nitrogen [Mass/Vol] 22 mg/dL High 6 - 20 mg/dL [place] Hemoglobin A1Con 09-06-2019 Glucose [Mass/Vol] 128 mg/dL [place] Comment on above: The ADA and AACC rec ommend providing the estimated average glucose result to permit better patient understanding of their HBA1c result. HbA1c (Bld) [Mass fraction] 6.1 % High 4.8 - 5.9 % [place] Interpretation and review of laboratory results Abnormal [place] Lipid Panelon 09-06-2019 Cholesterol [Mass/Vol] 166 mg/dL <200 [place] Comment on above: Cholesterol Guidelines: <200 Desirable 200-240 Borderline >240 Undesirable Cholesterol in HDL [Mass/Vol] 39 mg/dL Low >40 [place] Comment on above: HDL Guidelines: <40 Undesirable 40-59 Borderline >59 Desirable Cholesterol in LDL [Mass/Vol] 71 mg/dL 0 - 130 mg/dL [place] Comment on above: LDL Guidelines: <100 Desirable 100-129 Near to/above Desirable 130-159 Borderline >159 Undesirable Direct (measured) LDL and calculated LDL are not interchangeable tests. Cholesterol in VLDL [Mass/Vol] NOT REPORTED High 1 - 30 mg/dL [place] Cholesterol.total/Ch olesterol in HDL [Mass ratio] 4.3 {ratio} <5 [place] Triglyceride [Mass/Vol] 280 mg/dL High <150 [place] Comment on above: Triglyceride Guidelines: <150 Desirable 150-199 Borderline 200-499 High >499 Very high Based on AHA Guidelines for fasting triglyceride, April 2012. Magnesiumon 09-06-2019 Magnesium [Mass/Vol] 1.9 mg/dL 1.6 - 2.6 mg/dL [place] Otheron 09-06-2019 Interpretation and review of laboratory results Abnormal [place] Immature granulocytes (Bld) [#/Vol] NOT REPORTED 0 % [place] Patient Fasting?on 0 Patient Fasting? yes [place] TSH with Reflexon 09-06-2019 TSH Qn 2.01 m[IU]/L [place] Vitamin D 25 Hydroxyon 09-05 Interpretation and review of laboratory results Abnormal [place] Vit D, 25-Hydroxy 29.5 ng/mL Low 30 - 100 ng/mL [place] Comment on above: Reference Range: Vitamin D status Range Deficiency <20 ng/mL Mild Deficiency 20-30 ng/mL Sufficiency 30-100 ng/mL Toxicity >100 ng/mL XR CHEST STANDARD (2 VW)on 0 09-06-2019 No evidence of acute disease in the chest or change from 02/23/2018. [place] CHEST, TWO VIEWS, 09/06/2019: CLINICAL HISTORY: [...] calcification and tortuosity of the thoracic aorta. [place] Dre, Mhpn Incoming Radiant Results From [facility] - 09/06/2019 10:11 PM EST CHEST, TWO [...] in the chest or change from 02/23/2018. [place] Vital Signs Date Time Vital Sign Value Performing Clinician Joaquín rolle 11-07-2024 09:58-0400 Body height 167.6 cm MALINA Dean MD Work Phone: [facility] 11-07-2024 09:58-0400 Body mass index (BMI) [Ratio] 54.72 kg/m2 MALINA Dean MD Work Phone: [facility] 11-07-2024 09:58-0400 Body weight 153.77 kg MALINA Dean MD Work Phone: [facility] 11-07-2024 09:58-0400 Diastolic blood pressure 82 mm[Hg] MALINA Dean MD Work Phone: [phone] [place] [address] 11-07-2024 09:58-0400 Heart rate 85 /min MALINA Dean MD Work Phone: [facility] 11-07-2024 09:58-0400 Respiratory rate 22 /min MALINA Dean MD Work Phone: [phone] [place] [address] 11-07-2024 09:58-0400 SaO2% (BldA) [Mass fraction] 97 % MALINA Dean MD Work Phone: [facility] 11-07-2024 09:58-0400 Systolic blood pressure 122 mm[Hg] MALINA Dean MD Work Phone: [facility] 07-18-2024 11:52-0500 Blood Pressure Location Myron Rust [facility] 07-18-2024 11:52-0500 Body temperature 97.52 [degF] Myron [facility] [facility] 11:52-0500 Diastolic blood pressure 82 mm[Hg] Myron Rebolledoant [facility] 07-18-2024 11:52-0500 Heart rate 78 /min Myron Rebolledoant [facility] 07-18-2024 11:52-0500 Respiratory rate 18 /min Myron Yocasta [facility] 07-18-2024 11:52-0500 SaO2% (BldA) [Mass fraction] 98 % Myron Yocasta [facility] 07-18-2024 11:52-0500 Systolic blood pressure 138 mm[Hg] Myron Yocasta [facility] 07-11-2024 11:15-0500 Blood Pressure Location Myron Yocasta [facility] 07-11-2024 11:15-0500 Body temperature 97.52 [degF] Myron Yocasta [facility] 07-11-2024 11:15-0500 Diastolic blood pressure 78 mm[Hg] Myron Yocasta [facility] 07-11-2024 11:15-0500 Heart rate 92 /min Myron Yocasta [facility] 07-11-2024 11:15-0500 Respiratory rate 18 /min Myron Yocasta [facility] 07-11-2024 11:15-0500 SaO2% (BldA) [Mass fraction] 99 % Myron Yocasta [facility] 07-11-2024 11:15-0500 Systolic blood pressure 118 mm[Hg] Myron Yocasta [facility] 06-05-2024 12:57-0500 Blood Pressure Location Rick Hernandez [facility] 06-05-2024 12:57-0500 Diastolic blood pressure 80 mm[Hg] Rick Hernandez [facility] 06-05-2024 12:57-0500 Heart rate 90 /min Rick Hernandez [facility] 06-05-2024 12:57-0500 Respiratory rate 16 /min Rick Hernandez [facility] 06-05-2024 12:57-0500 SaO2% (BldA) [Mass fraction] 96 % Rick Hernandez [facility] 06-05-2024 12:57-0500 Systolic blood pressure 126 mm[Hg] Rick Hernandez [facility] 02-22-2024 13:08-0400 Blood Pressure Location Myronross Rust [facility] 02-22-2024 13:08-0400 Body temperature 97.88 [degF] Myron Yocasta [facility] 02-22-2024 13:08-0400 Diastolic blood pressure 68 mm[Hg] Myron Yocasta [facility] 02-22-2024 13:08-0400 Heart rate 63 /min Myron Yocasta [facility] 02-22-2024 13:08-0400 Respiratory rate 18 /min Myron Yocasta [facility] 02-22-2024 13:08-0400 SaO2% (BldA) [Mass fraction] 99 % Myron Yocasta [facility] 02-22-2024 13:08-0400 Systolic blood pressure 118 mm[Hg] Myron Yocasta [facility] 12-23-2023 13:25-0400 Diastolic blood pressure 84 mm[Hg] Walker Phillip [facility] 12-23-2023 13:25-0400 Heart rate 78 /min Cardoso Sarmini [facility] 12-23-2023 13:25-0400 Mean blood pressure 111 mm[Hg] Cardoso Sarmini [facility] 12-23-2023 13:25-0400 Respiratory rate 24 /min Cardoso Sarmini [facility] 12-23-2023 13:25-0400 SaO2% (BldA) [Mass fraction] 98 % Cardoso Sarmini [facility] 12-23-2023 13:25-0400 Systolic blood pressure 166 mm[Hg] Cardoso Sarmini [facility] 12-23-2023 13:15-0400 Diastolic blood pressure 89 mm[Hg] Cardoso Sarmini [facility] 12-23-2023 13:15-0400 Heart rate 69 /min Cardoso Sarmini [facility] 12-23-2023 13:15-0400 Mean blood pressure 111 mm[Hg] Cardoso Sarmini [facility] 12-23-2023 13:15-0400 Respiratory rate 17 /min Cardoso Sarmini [facility] 12-23-2023 13:15-0400 SaO2% (BldA) [Mass fraction] 99 % Cardoso Sarmini [facility] 12-23-2023 13:15-0400 Systolic blood pressure 155 mm[Hg] Cardoso Sarmini [facility] 12-23-2023 13:10-0400 Diastolic blood pressure 95 mm[Hg] Cardoso Sarmini [facility] 12-23-2023 13:10-0400 Heart rate 85 /min Cardoso Sarmini [facility] 12-23-2023 13:10-0400 Mean blood pressure 110 mm[Hg] Cardoso Sarmini [facility] 12-23-2023 13:10-0400 Respiratory rate 15 /min Cardoso Sarmini [facility] 12-23-2023 13:10-0400 SaO2% (BldA) [Mass fraction] 99 % Cardoso Sarmini [facility] 12-23-2023 13:10-0400 Systolic blood pressure 141 mm[Hg] Cardoso Sarmini [facility] 12-23-2023 13:00-0400 Body temperature 97.7 [degF] Cardoso Sarmini [facility] 12-23-2023 10:45-0400 Blood Pressure Location Cardoso Sarmini [facility] 12-23-2023 10:45-0400 Body temperature 97.88 [degF] Cardoso Sarmini [facility] 12-06-2023 14:51-0400 Blood Pressure Location Alirio Ramirez [facility] 12-06-2023 14:51-0400 Diastolic blood pressure 80 mm[Hg] Alirio Ramirez [facility] 12-06-2023 14:51-0400 Heart rate 86 /min Alirio Ramirez [facility] 12-06-2023 14:51-0400 SaO2% (BldA) [Mass fraction] 94 % Alirio Adam [facility] 12-06-2023 14:51-0400 Systolic blood pressure 124 mm[Hg] Alirio Ramirez [facility] 11-25-2023 14:30-0400 Blood Pressure Location Myronross Rust [facility] 11-25-2023 14:30-0400 Body temperature 96.8 [degF] Myron Yocasta [facility] 11-25-2023 14:30-0400 Diastolic blood pressure 80 mm[Hg] Myron Yocasta [facility] 11-25-2023 14:30-0400 Heart rate 89 /min Myron Yocasta [facility] 11-25-2023 14:30-0400 Respiratory rate 22 /min Myron Yocasta [facility] 11-25-2023 14:30-0400 SaO2% (BldA) [Mass fraction] 98 % Myron Yocasta [facility] 11-25-2023 14:30-0400 Systolic blood pressure 138 mm[Hg] Myron Yocasta [facility] 11-02-2023 10:06-0400 Blood Pressure Location Cardoso Sarmini [facility] 11-02-2023 10:06-0400 Diastolic blood pressure 60 mm[Hg] Cardoso Sarmini [facility] 11-02-2023 10:06-0400 Heart rate 78 /min Cardoso Sarmini [facility] 11-02-2023 10:06-0400 Respiratory rate 18 /min Walker Quirozi [facility] 11-02-2023 10:06-0400 Systolic blood pressure 118 mm[Hg] Walker Quirozi [facility] 10-26-2023 13:12-0400 Blood Pressure Location Myron Yocasta [facility] 10-26-2023 13:12-0400 Diastolic blood pressure 78 mm[Hg] Myron Yocasta [facility] 10-26-2023 13:12-0400 Heart rate 77 /min Myron Yocasta [facility] 10-26-2023 13:12-0400 Respiratory rate 16 /min Myron Yocasta [facility] 10-26-2023 13:12-0400 SaO2% (BldA) [Mass fraction] 99 % Myron Yocasta [facility] 10-26-2023 13:12-0400 Systolic blood pressure 122 mm[Hg] Myron Yocasta [facility] 10-25-2023 14:56-0400 Blood Pressure Location Ailrio Ramirez [facility] 10-25-2023 14:56-0400 Diastolic blood pressure 76 mm[Hg] Alirio Ramirez [facility] 10-25-2023 14:56-0400 Heart rate 96 /min Alirio Ramirez [facility] 10-25-2023 14:56-0400 SaO2% (BldA) [Mass fraction] 67 % Alirio Adam [facility] 10-25-2023 14:56-0400 Systolic blood pressure 128 mm[Hg] Alirio Ramirez [facility] 10-11-2023 17:33-0400 Diastolic blood pressure 90 mm[Hg] Myron Yocasta [facility] 10-11-2023 17:33-0400 Mean blood pressure 107 mm[Hg] Myron Yocasta [facility] 10-11-2023 17:33-0400 Systolic blood pressure 142 mm[Hg] Myron Yocasta [facility] 10-11-2023 14:21-0400 Blood Pressure Location Myron Yocasta [facility] 10-11-2023 14:21-0400 Body temperature 98.6 [degF] Myron Yocasta [facility] 10-11-2023 14:21-0400 Diastolic blood pressure 90 mm[Hg] Myron Yocasta [facility] 10-11-2023 14:21-0400 Heart rate 65 /min Myron Yocasta [facility] 10-11-2023 14:21-0400 Respiratory rate 20 /min Myron Yocasta [facility] 10-11-2023 14:21-0400 SaO2% (BldA) [Mass fraction] 95 % Myron Yocasta [facility] 10-11-2023 14:21-0400 Systolic blood pressure 144 mm[Hg] Myron Yocasta [facility] 08-10-2023 14:19-0500 Blood Pressure Location Myron Yocasta [facility] 08-10-2023 14:19-0500 Body temperature 97.88 [degF] Myron Yocasta [facility] 08-10-2023 14:19-0500 Diastolic blood pressure 70 mm[Hg] Myron Yocasta [facility] 08-10-2023 14:19-0500 Heart rate 90 /min Myron Yocasta [facility] 08-10-2023 14:19-0500 Respiratory rate 20 /min Myron Yocasta [facility] 08-10-2023 14:19-0500 SaO2% (BldA) [Mass fraction] 95 % Myron Yocasta [facility] 08-10-2023 14:19-0500 Systolic blood pressure 124 mm[Hg] Myron Yocasta [facility] 05-09-2023 08:04-0500 Blood Pressure Location Ansley Carrero [facility] 05-09-2023 08:04-0500 Body temperature 98.24 [degF] Ansley Carrero [facility] 05-09-2023 08:04-0500 Diastolic blood pressure 74 mm[Hg] Ansley Carrero [facility] 05-09-2023 08:04-0500 Heart rate 77 /min Ansley Carrero [facility] 05-09-2023 08:04-0500 Respiratory rate 18 /min Ansley Howardzier [facility] 05-09-2023 08:04-0500 SaO2% (BldA) [Mass fraction] 96 % Ansley Howardzier [facility] 05-09-2023 08:04-0500 Systolic blood pressure 120 mm[Hg] Ansley Howardzier [facility] 04-26-2023 10:59-0400 Blood Pressure Location Myron Yocasta [facility] 04-26-2023 10:59-0400 Body temperature 98.6 [degF] Myron Yocasta [facility] 04-26-2023 10:59-0400 Diastolic blood pressure 70 mm[Hg] Myron Yocasta [facility] 04-26-2023 10:59-0400 Heart rate 78 /min Myron Yocasta [facility] 04-26-2023 10:59-0400 Respiratory rate 18 /min Myron Yocasta [facility] 04-26-2023 10:59-0400 SaO2% (BldA) [Mass fraction] 98 % Myron Yocasta [facility] 04-26-2023 10:59-0400 Systolic blood pressure 128 mm[Hg] Myron Yocasta [facility] 03-18-2023 11:51-0400 Blood Pressure Location Myron Yocasta [facility] 03-18-2023 11:51-0400 Body temperature 97.7 [degF] Myron Rust [facility] 03-18-2023 11:51-0400 Diastolic blood pressure 64 mm[Hg] Myron Rebolledoant [facility] 03-18-2023 11:51-0400 Heart rate 78 /min Myron Rebolledoant [facility] 03-18-2023 11:51-0400 Respiratory rate 16 /min Myron Rust [facility] 03-18-2023 11:51-0400 SaO2% (BldA) [Mass fraction] 94 % Myron Rust [facility] 03-18-2023 11:51-0400 Systolic blood pressure 122 mm[Hg] Myron Rust [facility] 10-15-2022 05:30-0400 Diastolic blood pressure 75 mm[Hg] Demetra Cruz MD Work Phone: [employer] 10-15-2022 05:30-0400 Heart rate 98 /min Demetra Cruz MD Work Phone: [employer] 10-15-2022 05:30-0400 Respiratory rate 21 /min Demetra Cruz MD Work Phone: [employer] 10-15-2022 05:30-0400 Systolic blood pressure 119 mm[Hg] Demetra Cruz MD Work Phone: [employer] 10-15-2022 05:15-0400 SaO2% (BldA) [Mass fraction] 89 % Demetra Cruz MD Work Phone: [employer] 10-14-2022 21:50-0400 Body height 170.2 cm Demetra Cruz MD Work Phone: [employer] 10-14-2022 21:50-0400 Body mass index (BMI) [Ratio] 51.22 kg/m2 Demetra Cruz MD Work Phone: [facility] 10-14-2022 21:50-0400 Body temperature 98.1 [degF] Demetra Cruz MD Work Phone: [facility] 10-14-2022 21:50-0400 Body weight 148.33 kg Demetra Cruz MD Work Phone: [facility] 10-13-2022 08:55-0400 Blood Pressure Location Carmen Marksa [facility] 10-13-2022 08:55-0400 Diastolic blood pressure 76 mm[Hg] Carmen Wiarda [facility] 10-13-2022 08:55-0400 Heart rate 79 /min Carmen Guthriearda [facility] 10-13-2022 08:55-0400 SaO2% (BldA) [Mass fraction] 93 % Carmen Wiarda [facility] 10-13-2022 08:55-0400 Systolic blood pressure 128 mm[Hg] Carmen Jerriarda [facility] 09-29-2022 11:33-0400 Blood Pressure Location Carmen Marksa [facility] 09-29-2022 11:33-0400 Diastolic blood pressure 72 mm[Hg] Carmen Guthriearda [facility] 09-29-2022 11:33-0400 Heart rate 90 /min Carmen Guthriearda [facility] 09-29-2022 11:33-0400 SaO2% (BldA) [Mass fraction] 93 % Carmen Wiarda [facility] 09-29-2022 11:33-0400 Systolic blood pressure 128 mm[Hg] Carmen Haley [facility] 09-24-2022 14:40-0400 Blood Pressure Location [employer] [facility] 09-24-2022 14:40-0400 Body temperature 97.16 [degF] [employer] [facility] 09-24-2022 14:40-0400 Diastolic blood pressure 82 mm[Hg] [employer] [facility] 09-24-2022 14:40-0400 Heart rate 83 /min [employer] [facility] 09-24-2022 14:40-0400 Respiratory rate 24 /min [employer] [facility] 09-24-2022 14:40-0400 SaO2% (BldA) [Mass fraction] 92 % [employer] [facility] 09-24-2022 14:40-0400 Systolic blood pressure 106 mm[Hg] [employer] [facility] 09-22-2022 08:08-0400 Blood Pressure Location Carmen Haley [facility] 09-22-2022 08:08-0400 Diastolic blood pressure 78 mm[Hg] Carmen Marksa [facility] 09-22-2022 08:08-0400 Heart rate 72 /min Carmen Haley [facility] 09-22-2022 08:08-0400 SaO2% (BldA) [Mass fraction] 94 % Carmen Haley [facility] 09-22-2022 08:08-0400 Systolic blood pressure 136 mm[Hg] Carmen Haley [facility] 09-14-2022 11:55-0400 Heart rate 79 /min DO Joo Rachel Work Phone: [facility] 09-14-2022 11:55-0400 Respiratory rate 20 /min DO Joo Rachel Work Phone: [facility] 09-14-2022 08:41-0400 SaO2% (BldA) [Mass fraction] 95 % DO Joo Rachel Work Phone: [facility] 09-14-2022 07:36-0400 Diastolic blood pressure 85 mm[Hg] DO Joo Rachel Work Phone: [facility] 09-14-2022 07:36-0400 Systolic blood pressure 134 mm[Hg] DO Joo Rachel Work Phone: [facility] 09-14-2022 05:21-0400 Body weight 153.9 kg DO Joo Rachel Work Phone: [facility] 09-14-2022 03:46-0400 Body temperature 98.1 [degF] DO Joo Rachel Work Phone: [facility] 09-13-2022 15:35-0400 Body height 160.02 cm DO Joo Rachel Work Phone: [facility] 09-11-2022 20:33-0500 Inhaled oxygen flow rate 2 L/min DO Joo Rachel Work Phone: [facility] 09-10-2022 14:03-0500 Diastolic blood pressure 57 mm[Hg] [facility] 09-10-2022 14:03-0500 Heart rate 86 /min [facility] 09-10-2022 14:03-0500 Inhaled oxygen flow rate 2 L/min [facility] 09-10-2022 14:03-0500 Respiratory rate 20 /min [facility] 09-10-2022 14:03-0500 SaO2% (BldA) [Mass fraction] 98 % [facility] 09-10-2022 14:03-0500 Systolic blood pressure 117 mm[Hg] [facility] 09-10-2022 11:11-0500 Body height 160.02 cm [facility] 09-10-2022 11:11-0500 Body temperature 97.6 [degF] [facility] 09-10-2022 11:11-0500 Body weight 159 kg [facility] 09-06-2022 11:23-0500 Blood Pressure Location [employer] [facility] 09-06-2022 11:23-0500 Body temperature 97.16 [degF] [employer] [facility] 09-06-2022 11:23-0500 Diastolic blood pressure 80 mm[Hg] [employer] [facility] 09-06-2022 11:23-0500 Heart rate 83 /min [employer] [facility] 09-06-2022 11:23-0500 Respiratory rate 28 /min [employer] [facility] 09-06-2022 11:23-0500 SaO2% (BldA) [Mass fraction] 94 % [employer] [facility] 09-06-2022 11:23-0500 Systolic blood pressure 138 mm[Hg] [employer] [facility] 08-20-2022 15:03-0500 Diastolic blood pressure 86 mm[Hg] [employer] [facility] 08-20-2022 15:03-0500 Mean blood pressure 114 mm[Hg] Lupis BROWN [facility] 08-20-2022 15:03-0500 Systolic blood pressure 170 mm[Hg] Lupis BROWN [facility] 08-20-2022 13:59-0500 Blood Pressure Location Lupis SCHWARTZ [facility] 08-20-2022 13:59-0500 Body temperature 96.98 [degF] Lupis SCHWARTZ [facility] 08-20-2022 13:59-0500 Diastolic blood pressure 102 mm[Hg] Lupis SCHWARTZ [facility] 08-20-2022 13:59-0500 Heart rate 77 /min Lupis SCHWARTZ [facility] 08-20-2022 13:59-0500 Respiratory rate 28 /min Lupis SCHWARTZ [facility] 08-20-2022 13:59-0500 SaO2% (BldA) [Mass fraction] 97 % Lupis SCHWARTZ [facility] 08-20-2022 13:59-0500 Systolic blood pressure 178 mm[Hg] Lupis SCHWARTZ [facility] 12-30-2021 11:01-0400 [facility]30-[facility] 11:01-0400 Body temperature 98.42 [degF] Parish RUBIO [facility] 12-30-2021 11:01-0400 Diastolic blood pressure 90 mm[Hg] Parish RUBIO [facility] 12-30-2021 11:01-0400 Heart rate 73 /min Parish RUBIO [facility] 12-30-2021 11:01-0400 SaO2% (BldA) [Mass fraction] 96 % Parish RUBIO [facility] 12-30-2021 11:01-0400 Systolic blood pressure 124 mm[Hg] Parish RUBIO [facility] 07-09-2021 08:54-0500 Body height 167.6 cm [employer] Work Phone: [employer] 07-09-2021 08:54-0500 Body mass index (BMI) [Ratio] 55.17 kg/m2 [employer] Work Phone: [employer] 07-09-2021 08:54-0500 Body weight 155.04 kg [employer] Work Phone: [employer] 07-02-2021 09:46-0500 Body height 167.6 cm [employer] Work Phone: [employer] 07-02-2021 09:46-0500 Body mass index (BMI) [Ratio] 56.27 kg/m2 [employer] Work Phone: [employer] 07-02-2021 09:46-0500 Body weight 158.12 kg [employer] Work Phone: [employer] 03-17-2020 12:10-0400 BP Diastolic 84 mm[Hg] Glenn Malik [employer] [place] 03-17-2020 12:10-0400 BP Systolic 133 mm[Hg] Glenn Helena [employer] [place] 03-17-2020 12:10-0400 Pulse (Heart Rate) 62 /min Glenn Malik [facility], [place] 03-17-2020 12:10-0400 Pulse Oximetry 99 % Glenn Malik [facility] , [place] 03-17-2020 12:10-0400 Respiratory Rate 18 /min [facility] [place] 03-17-2020 11:39-0400 Body Temperature 98.4 [degF] [facility] [place] 03-17-2020 08:43-0400 BMI (Body Mass Index) 51.84 kg/m2 [facility] [place] 03-17-2020 08:43-0400 Body weight 150.14 kg [facility] [place] 03-17-2020 08:43-0400 Height 170.2 cm [facility] [place] 09-07-2019 13:09-0500 Pulse Oximetry 97 % [facility] , [place] Encounters Encounter Date Encounter Type Care Provider Facility Start: 03-05-2025 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, MASTER SCHEDULER-CERTIFIED CODER Myron Rust Facility: [facility] Start: 03-05-2025 End: 03-05-2025 Patient encounter procedure Myron Rust [facility] Start: 02-11-2025 End: 02-11-2025 ambulatory Calvin Palmer MD Facility:[facility] Start: 02-04-2025 End: 02-04-2025 ambulatory Myron Rust Facility: [facility] Start: 02-04-2025 End: 02-04-2025 Patient encounter procedure Myron Rust [facility] Start: 01-29-2025 End: 01-29-2025 ambulatory AISHA Hernandez [place] Start: 01-24-2025 End: 01-24-2025 Emergency department patient visit Oneal Newman [place] Start: 01-21-2025 End: 01-21-2025 ambulatory Calvin Palmer MD Facility:[facility] Start: 01-07-2025 End: 01-07-2025 ambulatory Myron Rust [facility] Start: 01-07-2025 End: 01-07-2025 Patient encounter procedure Myron Rust [facility] Start: 01-02-2025 End: 01-02-2025 Lab Drop off Myron Rust [facility] Start: 01-02-2025 End: 01-02-2025 [facility] Start: 01-02-2025 End: 01-02-2025 Patient encounter procedure Myron Rust [facility] [place] Start: 01-01-2025 End: 01-01-2025 ambulatory Rick Hernandez [place] Start: 01-01-2025 End: 01-01-2025 Patient encounter procedure Rick Hernandez [facility] Start: 12-31-2024 End: 01-31-2025 ambulatory Myron Rust Facility:[id number] Start: 12-27-2024 End: 12-29-2024 Evaluation and management of inpatient Abisai Kaur [place] Start: 12-27-2024 Emergency department patient visit Whit Simms [facility] Start: 12-27-2024 End: 12-29-2024 Evaluation and management of inpatient Abisai Kaur III [facility] Start: 12-19-2024 End: 12-19-2024 ambulatory Myron Rust [place] Start: 12-19-2024 End: 12-19-2024 Patient encounter procedure Myron Rust [facility] Start: 12-19-2024 End: 12-19-2024 Lab Drop off Myron Rust [facility] Start: 12-19-2024 End: 12-19-2024 ambulatory Myron Rust Facility: [facility] Start: 12-19-2024 End: 12-19-2024 Patient encounter procedure Myron Rust [facility] Start: 11-27-2024 End: 11-27-2024 ambulatory Myron Rust Facility: [facility] Start: 11-27-2024 End: 11-27-2024 Patient encounter procedure Myron Rust [facility] Start: 11-07-2024 End: 11-07-2024 Office outpatient new 60 minutes Coco Dean MD Work Phone: [facility] Comment on above: Gastroesophageal ref lux disease, unspecified whether esophagitis present (Primary Dx); Morbid obesity with BMI of 50.0-59.9, adult; BRENDA (obstructive sleep apnea); Type 2 diabetes mellitus without complication, without long-term current use of insulin Start: 11-07-2024 ambulatory Coco DEAN [facility] Start: 10-29-2024 End: 10-29-2024 ambulatory Calvin Palmer MD Facility: [facility] Start: 09-12-2024 End: 09-12-2024 Lab Drop off Myron Rust [facility] Start: 09-12-2024 End: 09-12-2024 ambulatory [facility] Start: 08-29-2024 End: 08-29-2024 ambulatory Myron Rust Facility:[facility] Start: 08-29-2024 End: 08-29-2024 Patient encounter procedure Myron Rust [facility] [place] Start: 07-23-2024 End: 07-23-2024 ambulatory Calvin Palmer MD Facility: [facility] Start: 07-18-2024 End: 07-18-2024 ambulatory Myron Rust Facility:[facility] Start: 07-18-2024 End: 07-18-2024 Patient encounter procedure Myron Rust [facility] [place] Start: 07-13-2024 End: 07-13-2024 Lab Drop off Myron Rust [facility] Start: 07-13-2024 End: 07-13-2024 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, MASTER SCHEDULER-CERTIFIED CODER Myron Rust [place] Start: 07-13-2024 End: 07-13-2024 Patient encounter procedure Myron Rust [facility] Start: 07-11-2024 End: 07-11-2024 ambulatory Myron Rust Facility:[facility] Start: 07-11-2024 End: 07-11-2024 Patient encounter procedure Myron Rust [facility] Start: 06-05-2024 End: 06-05-2024 ambulatory AISHA Hernandez [place] Start: 06-05-2024 End: 06-05-2024 Patient encounter procedure Rick Hernandez [facility] Start: 05-21-2024 End: 05-21-2024 ambulatory Calvin Palmer MD Facility:[facility] Start: 02-22-2024 End: 02-22-2024 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, MASTER SCHEDULER-CERTIFIED CODER Myron Rust Facility: [facility] Start: 02-22-2024 End: 02-22-2024 Patient encounter procedure Myron Rust [facility] Start: 02-10-2024 End: 09-01-2024 Pre-admission assessment Cardoso Talal Sarmini [facility] Start: 01-27-2024 End: 01-27-2024 ambulatory Cardoso Talal Sarmini Facility:[facility] Start: 01-27-2024 End: 01-27-2024 Patient encounter procedure Cardoso Talal Sarmini [facility] Start: 12-23-2023 End: 12-23-2023 ambulatory Cardoso Talal Sarmini [facility] Start: 12-23-2023 End: 12-23-2023 Patient encounter procedure Cardoso Talal Sarmini [facility] Start: 12-19-2023 End: 12-21-2023 ambulatory [facility] Start: 12-06-2023 End: 12-06-2023 ambulatory Alirio Ramirez Facility:[facility] Start: 12-06-2023 End: 12-06-2023 Patient encounter procedure Alirio Ramirez [facility] Start: 11-25-2023 End: 11-25-2023 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, MASTER SCHEDULER-IRVING Rust Facility:[facility] Start: 11-25-2023 End: 11-25-2023 Patient encounter procedure Myron Rust [facility] Start: 11-17-2023 End: 11-17-2023 ambulatory ALIRIO RAMIREZ [facility] Start: 11-10-2023 ambulatory LUIS MASTER SCHEDULER-IRVING Rust Facility:[facility] Start: 11-08-2023 End: 11-08-2023 ambulatory Alirio Ramirez Facility[facility] Start: 11-08-2023 End: 11-08-2023 Patient encounter procedure Alirio Ramirez [facility] Start: 11-02-2023 End: 11-02-2023 ambulatory Cardoso Talal Sarmini Facility:[facility] Start: 11-02-2023 End: 11-02-2023 Patient encounter procedure Cardoso Talal Sarmini [facility] Start: 10-26-2023 End: 10-26-2023 ambulatory LUIS MASTER SCHEDULER-IRVING Rust Facility:[facility] Start: 10-26-2023 End: 10-26-2023 [facility] Start: 10-25-2023 End: 10-25-2023 ambulatory XXXX NONE Facility:[facility] Start: 10-25-2023 End: 10-25-2023 Patient encounter procedure Alirio Ramirez [facility] Start: 10-11-2023 End: 10-11-2023 ambulatory LUIS MASTER SCHEDULER-IRVING Rust Facility:[facility] Start: 10-11-2023 End: 10-11-2023 Patient encounter procedure [facility] Start: 10-06-2023 End: 10-06-2023 Emergency department patient visit [facility] Start: 08-30-2023 End: 09-01-2023 ambulatory KAMALJIT Chavez [facility] Start: 08-24-2023 End: 08-27-2023 ambulatory [facility] Start: 08-10-2023 End: 08-12-2023 ambulatory [facility] Start: 08-10-2023 End: 08-12-2023 Subsequent hospital visit by physician Krysten Additional Xray At [facility] Comment on above: Right hip pain Start: 08-10-2023 End: 08-10-2023 Patient encounter [facility] Start: 07-21-2023 End: 07-21-2023 Subsequent hospital visit by physician Arlene Dickens [facility] Start: 07-20-2023 End: 07-20-2023 Subsequent hospital visit by physician Monico Sheppard PTA [facility] Start: 07-14-2023 End: 07-14-2023 Subsequent hospital visit by physician Arlene Dickens [facility] Start: 07-11-2023 End: 07-11-2023 [facility] Start: 07-08-2023 End: 07-08-2023 Subsequent hospital visit by physician Arlene Dickens [facility] Start: 07-07-2023 End: 07-07-2023 [facility] Start: 07-06-2023 End: 07-06-2023 Subsequent hospital visit by physician Arlene Dickens [facility] Start: 07-06-2023 [facility] Start: 06-21-2023 End: 06-21-2023 ambulatory [facility] Start: 05-10-2023 End: 06-14-2023 Pre-admission assessment Justyna Rudi [facility] Start: 05-09-2023 End: 05-09-2023 Patient encounter procedure Ansley Carrero [facility] Start: 04-29-2023 End: 04-29-2023 [facility]: 04-26-2023 End: 04-26-2023 Patient encounter procedure Myron Rust [facility] Start: 03-18-2023 End: 03-18-2023 Patient encounter procedure Myron Rust [facility] Start: 12-01-2022 End: 12-03-2022 Subsequent hospital visit by physician Krysten [facility] Comment on above: Fatigue, unspecified type; Screening, lipid Start: 11-26-2022 End: 11-26-2022 Patient encounter procedure Myron Rust [facility] Start: 10-19-2022 ambulatory Facility:1 [id number] Start: 10-19-2022 End: 01-18-2023 Recurring Carmen Haley [facility] Start: 10-19-2022 End: 10-21-2022 Subsequent hospital visit by physician Paul Additional Xray At [facility] Radiology Comment on above: Left hand weakness Weakness of both leg s Start: 10-14-2022 End: 10-15-2022 Emergency department patient visit Demetra Cruz MD Work Phone: [facility] ED Comment on above: Alcohol abuse (Prima ry Dx) Start: 10-13-2022 End: 10-13-2022 Subsequent hospital visit by physician Mulu Taylor CNP Work Phone: [facility] Start: 10-13-2022 End: 10-14-2022 Pre-admission assessment Carmen P. Sudha [facility] Start: 10-06-2022 End: 10-06-2022 Lab Drop off Lupis SCHWARTZ [facility] Start: 10-06-2022 End: 10-06-2022 Patient encounter procedure Lupis SCHWARTZ [facility] Start: 09-29-2022 End: 09-29-2022 Lab Drop off Carmen Haley [facility] Start: 09-29-2022 End: 09-30-2022 Pre-admission assessment Carmen Haley [facility] Start: 09-27-2022 End: 09-27-2022 Lab Drop off Myron Rust [facility] Start: 09-27-2022 End: 09-27-2022 Patient encounter procedure Myron Rust [facility] Start: 09-24-2022 End: 09-24-2022 Patient encounter [facility] Start: 09-22-2022 End: 09-22-2022 Patient encounter procedure Carmen Haley [facility] Start: 09-13-2022 ambulatory Facility:U Start: 09-10-2022 End: 09-14-2022 Evaluation and management of inpatient Obaydah M Daromar Facility:[facility] Start: 09-10-2022 ambulatory Facility:[id number] Start: 09-10-2022 End: 09-14-2022 Evaluation and management of inpatient [facility] Work Phone: Start: 09-06-2022 End: 09-06-2022 Lab Drop off Lupis SCHWARTZ [facility] Start: 09-06-2022 End: 09-06-2022 Patient encounter procedure [facility] Start: 08-27-2022 End: 08-27-2022 Subsequent hospital visit by physician Krysten Echo Room [facility] ECHO Comment on above: Hypertension, unspec ified type; Bilateral leg edema Start: 08-20-2022 End: 08-20-2022 Lab Drop off Lupis SCHWARTZ [facility] Start: 08-20-2022 End: 08-20-2022 Patient encounter procedure [facility] Start: 12-30-2021 End: 12-30-2021 Patient encounter procedure Parish RUBIO [facility] Start: 07-13-2021 End: 07-13-2021 Subsequent hospital visit by physician Case Parish RD, LD Work Phone: [facility] Diet and Nutrition Comment on above: Arrived Start: 07-09-2021 End: 07-09-2021 Subsequent hospital visit by physician [facility] Diabetes Education Work Phone: [facility] Diabetic Education Start: 07-02-2021 End: 07-02-2021 Subsequent hospital visit by physician [facility] Diabetes Education Work Phone: [facility] Diabetic Education Start: 05-21-2021 End: 05-23-2021 Subsequent hospital visit by physician [facility] Additional Xray At [facility] Radiology Comment on above: SOB (shortness of br eath); Obstructive sleep apnea (adult) (pediatric); Moderate persistent asthma without complication Start: 05-21-2021 End: 05-23-2021 Subsequent hospital visit by physician [facility] Pulmonary Function [facility] Comment on above: SOB (shortness of br eath); Obstructive sleep apnea syndrome; Moderate persistent asthma without complication; Tobacco abuse Start: 03-17-2020 End: 03-17-2020 Subsequent hospital visit by physician Glenn Malik Work Phone: [facility] Start: 03-17-2020 End: 03-17-2020 Subsequent hospital visit by physician [facility] Covid19 Pat Screening Schedule [facility] PRE ADMIT Comment on above: Arrived Start: 02-19-2020 End: 02-21-2020 Subsequent hospital visit by physician [facility] Ultrasound Room [facility] Ultrasound Comment on above: Hypertrophy of uteru s; Right lower quadrant pain Start: 02-07-2020 End: 02-09-2020 Subsequent hospital visit by physician [facility] Cat Scan Room [facility] CT Scan Comment on above: RLQ abdominal pain Start: 09-07-2019 End: 09-07-2019 Subsequent hospital visit by physician [facility] Pulmonary Function Rm [facility] Comment on above: SOB (shortness of br eath) Start: 09-06-2019 End: 09-08-2019 Subsequent hospital visit by physician [facility] Dig Rad 1 [facility] Comment [...] unilateral with pelvis 2-3 views Myron Rust MASTER SCHEDULER - CERTIFIED CODER Work Phone: Start: 08-10-2023 Comprehensive metabo lic panel Myron Rust MASTER SCHEDULER - [facility] Work Phone: Start: 08-10-2023 Lipid panel Myron Fair nt MASTER SCHEDULER - CERTIFIED CODER Work Phone: Start: 08-10-2023 Urine albumin quantitative Myron Rust MASTER SCHEDULER [employer] [facility] Work Phone: Start: 12-01-2022 Dup-scan xtr veins [...] 10-13-2022 Creatine kinase total K althea Dean MASTER SCHEDULER - CERTIFIED CODER Work Phone: Start: 09-10-2022 Respiratory Panel (PCR) DO Joo Ramos Work Phone: Start: 09-10-2022 Plain chest X-ray Start: 05-21-2021 Radiologic exam ches t 2 views Mulu Dean MASTER SCHEDULER - CERTIFIED CODER Work Phone: Start: 03-17-2020 Nebulizer therapy Glenn P Helena Work Phone: Start: 03-17-2020 COVID-19 Cameron Jau regui Work Phone: Start: 03-17-2020 Colonoscopy [facility] Start: 03-17-2020 Colonoscopy Lupis BROW N Start: 02-19-2020 Us pelvic nonobstetr ic real-time image complete Mulu Dean Work Phone: Start: 02-07-2020 Ct abdomen & pelvis w/contrast material Mulu Dean Work Phone: Start: 02-07-2020 Assay of urea nitrog en quantitative Casa Oscar Alegreailyn Work Phone: Start: 09-07-2019 NEBULIZER TX INTERMITTENT Nito Back Work Phone: Start: 09-06-2019 Radiologic exam ches t 2 views Joselito Hsu Work Phone: Start: 09-06-2019 25 hydroxy includes fractions if performed Joselito Sepulveda Kinseyflakito Work Phone: Start: 09-06-2019 Assay of magnesium Joselito Hsu Work Phone: Start: 09-06-2019 Assay of thyroid stimulating hormone tsh Joselito Hsu Work Phone: Start: 09-06-2019 Blood count complete auto&auto difrntl wbc Joselito Hsu Work Phone: Start: 09-06-2019 Comprehensive metabo lic panel Joselito Nguyendangflakito Work Phone: Start: 09-06-2019 Hemoglobin glycosyla jeffrey [...] RSV VACCINE (1 - 1-dose 75+ series) [facility] Start: 04-10-2030 DTaP/Tdap/Td vaccine (3 - Td or Tdap) DTaP/Tdap/Td vaccine (3 - Td or Tdap) [facility] Start: 04-10-2030 Tetanus vaccination TETANUS [facility] Start: 03-17-2030 Screening for malignant neoplasm of colon [facility] Start: 11-16-2027 Pneumococcal 0-64 years Vaccine (2 of 2 - PPSV23) Pneumococcal 0-64 years Vaccine (2 of 2 - PPSV23) [facility] Start: 11-07-2024 End: 11-07-2025 B12/folate level B12 & FOLATE Lab Routine Gastroesophageal reflux disease, unspecified whether esophagitis present Morbid obesity with BMI of 50.0-59.9, adult BRENDA (obstructive sleep apnea) Type 2 diabetes mellitus without complication, without long-term current use of insulin Expected: 11/07/2024, Expires: 11/07/2025 [facility] Comment on above: Expected: 11/07/2024, Expires: Start: 11-07-2024 End: 11-07-2025 Basic metabolic 2000 panel - Serum or Plasma BASIC METABOLIC PANEL Lab Routine Gastroesophageal reflux disease, unspecified whether esophagitis present Morbid obesity with BMI of 50.0-59.9, adult BRENDA (obstructive sleep apnea) Type 2 diabetes mellitus without complication, without long-term current use of insulin Expected: 11/07/2024, Expires: 11/07/2025 [facility] Comment on above: Expected: 11/07/2024, Expires: Start: 11-07-2024 End: 11-07-2025 CBC,PLATELETS CBC,PLATELETS Lab Routine Gastroesophageal reflux disease, unspecified whether esophagitis present Morbid obesity with BMI of 50.0-59.9, adult BRENDA (obstructive sleep apnea) Type 2 diabetes mellitus without complication, without long-term current use of insulin Expected: 11/07/2024, Expires: 11/07/2025 [facility] Comment on above: Expected: 11/07/2024, Expires: Start: 11-07-2024 End: 11-07-2025 DIAGNOSTIC UPPER ENDOSCOPY DIAGNOSTIC UPPER ENDOSCOPY GI/Bronch Routine Gastroesophageal reflux disease, unspecified whether esophagitis present Expected: 11/07/2024, Expires: 11/07/2025 [facility] Comment on above: Expected: 11/07/2024, Expires: Start: 11-07-2024 End: 11-07-2025 Ferritin [Mass/volume] in Serum or Plasma FERRITIN Lab Routine Gastroesophageal reflux disease, unspecified whether esophagitis present Morbid obesity with BMI of 50.0-59.9, adult BRENDA (obstructive sleep apnea) Type 2 diabetes mellitus without complication, without long-term current use of insulin Expected: 11/07/2024, Expires: 11/07/2025 [facility] Comment on above: Expected: 11/07/2024, Expires: Start: 11-07-2024 End: 11-07-2025 Hemoglobin A1c/Hemoglobin.total in Blood HEMOGLOBIN A1C Lab Routine Gastroesophageal reflux disease, unspecified whether esophagitis present Morbid obesity with BMI of 50.0-59.9, adult BRENDA (obstructive sleep apnea) Type 2 diabetes mellitus without complication, without long-term current use of insulin Expected: 11/07/2024, Expires: 11/07/2025 [facility] Comment on above: Expected: 11/07/2024, Expires: Start: 11-07-2024 End: 11-07-2025 Hepatic function 2000 panel - Serum or Plasma HEPATIC FUNCTION PANEL Lab Routine Gastroesophageal reflux disease, unspecified whether esophagitis present Morbid obesity with BMI of 50.0-59.9, adult BRENDA (obstructive sleep apnea) Type 2 diabetes mellitus without complication, without long-term current use of insulin Expected: 11/07/2024, Expires: 11/07/2025 [facility] Comment on above: Expected: 11/07/2024, Expires: Start: 11-07-2024 End: 11-07-2025 IRON/IRON BINDING/TRANSFERRIN IRON/IRON BINDING/TRANSFERRIN Lab Routine Gastroesophageal reflux disease, unspecified whether esophagitis present Morbid obesity with BMI of 50.0-59.9, adult BRENDA (obstructive sleep apnea) Type 2 diabetes mellitus without complication, without long-term current use of insulin Expected: 11/07/2024, Expires: 11/07/2025 [facility] Comment on above: Expected: 11/07/2024, Expires: Start: 11-07-2024 End: 11-07-2025 LIPID PANEL W CALCULATED LDL LIPID PANEL W CALCULATED LDL Lab Routine Gastroesophageal reflux disease, unspecified whether esophagitis present Morbid obesity with BMI of 50.0-59.9, adult BRENDA (obstructive sleep apnea) Type 2 diabetes mellitus without complication, without long-term current use of insulin Expected: 11/07/2024, Expires: 11/07/2025 [facility] Comment on above: Expected: 11/07/2024, Expires: Start: 11-07-2024 End: 11-07-2025 Magnesium [Mass/volume] in Serum or Plasma MAGNESIUM Lab Routine Gastroesophageal reflux disease, unspecified whether esophagitis present Morbid obesity with BMI of 50.0-59.9, adult BRENDA (obstructive sleep apnea) Type 2 diabetes mellitus without complication, without long-term current use of insulin Expected: 11/07/2024, Expires: 11/07/2025 [facility] Comment on above: Expected: 11/07/2024, Expires: Start: 11-07-2024 End: 11-07-2025 PHOSPHATE, INORGANIC PHOSPHATE, INORGANIC Lab Routine Gastroesophageal reflux disease, unspecified whether esophagitis present Morbid obesity with BMI of 50.0-59.9, adult BRENDA (obstructive sleep apnea) Type 2 diabetes mellitus without complication, without long-term current use of insulin Expected: 11/07/2024, Expires: 11/07/2025 [facility] Comment on above: Expected: 11/07/2024, Expires: Start: 11-07-2024 End: 11-07-2025 PROTIME-INR PROTIME-INR Lab Routine Gastroesophageal reflux disease, unspecified whether esophagitis present Morbid obesity with BMI of 50.0-59.9, adult BRENDA (obstructive sleep apnea) Type 2 diabetes mellitus without complication, without long-term current use of insulin Expected: 11/07/2024, Expires: 11/07/2025 [facility] Comment on above: Expected: 11/07/2024, Expires: Start: 11-07-2024 End: 11-07-2025 PTH INTACT PTH INTACT Lab Routine Gastroesophageal reflux disease, unspecified whether esophagitis present Morbid obesity with BMI of 50.0-59.9, adult BRENDA (obstructive sleep apnea) Type 2 diabetes mellitus without complication, without long-term current use of insulin Expected: 11/07/2024, Expires: 11/07/2025 [facility] Comment on above: Expected: 11/07/2024, Expires: Start: 11-07-2024 End: 11-07-2025 TSH W/FT4 REFLEX TSH W/FT4 REFLEX Lab Routine Gastroesophageal reflux disease, unspecified whether esophagitis present Morbid obesity with BMI of 50.0-59.9, adult BRENDA (obstructive sleep apnea) Type 2 diabetes mellitus without complication, without long-term current use of insulin Expected: 11/07/2024, Expires: 11/07/2025 [facility] Comment on above: Expected: 11/07/2024, Expires: Start: 11-07-2024 End: 11-07-2025 VITAMIN D (25-HYDROXY,TOTAL) VITAMIN D (25-HYDROXY,TOTAL) Lab Routine Gastroesophageal reflux disease, unspecified whether esophagitis present Morbid obesity with BMI of 50.0-59.9, adult BRENDA (obstructive sleep apnea) Type 2 diabetes mellitus without complication, without long-term current use of insulin Expected: 11/07/2024, Expires: 11/07/2025 [facility] Comment on above: Expected: 11/07/2024, Expires: Start: 10-27-2024 DTaP/Tdap/Td vaccine (2 - Td) DTaP/Tdap/Td vaccine (2 - Td) [facility] Start: 03-04-2024 COVID-19 VACCINE ( season) COVID-19 VACCINE ( season) [facility] Start: 07-21-2023 End: 07-21-2023 Patient encounter procedure 07/21/2023 10:30 AM EST Appointment [facility] [address] [facility] [place] [address] Arlene Dickens [facility] D[facility]-Eda Meghan [facility] Comment on above: [facility]-Eda Meghan Start: 07-19-2023 End: 07-19-2023 Patient encounter procedure 07/19/2023 10:30 AM EST Appointment [facility] [address] [facility] [place] [address] Ana Blank, PT [facility]-Eda Meghan [facility] Comment on above: [facility] DDD-Eda Meghan Start: 07-14-2023 End: 07-14-2023 Patient encounter procedure 07/14/2023 10:30 AM EST Appointment [facility] [address] [facility] [place] [address] Arlene Dickens [facility] DDD-Eda Meghan [facility] Comment on above: [facility] DDD-Eda Meghan Start: 07-11-2023 End: 07-11-2023 Patient encounter procedure 07/11/2023 10:30 AM EST Appointment [facility] [address] [facility] [place] [address] Ana Blank, PT [facility] DDD-Eda Meghan [facility] Comment on above: [facility] DDD-Eda Meghan Start: 12-15-2022 End: 12-15-2022 Patient encounter procedure 12/15/2022 Office Visit Gastroenterology Racheal Braden, MASTER SCHEDULER - CERTIFIED CODER [address] [address] [facility] Start: 2022 Respiratory Syncytial Virus (RSV) or age 60 yrs+ (1 - 1-dose 60+ series) Respiratory Syncytial Virus (RSV) or age 60 yrs+ (1 - 1-dose 60+ series) [facility] Start: 10-26-2022 End: 10-26-2022 Patient encounter procedure 10/26/2022 Office Visit Cardiology Joselito Hsu MD [address] [place] [address] [facility] Start: 09-14-2022 [facility] Start: 09-11-2022 Comprehensive metabolic 2000 panel - Serum or Plasma [facility] Start: 09-11-2022 [facility] Start: 09-10-2022 [facility] Start: 09-10-2022 [facility] Start: 09-10-2022 Referral to Raw Cheese Worker [facility] Start: 09-10-2022 End: 09-10-2022 [facility] Start: 09-10-2022 Hospital admission [facility] Start: 09-10-2022 [facility] Start: 09-08-2021 End: 09-08-2021 Patient encounter procedure 09/08/2021 Appointment Diabetes Services [facility] Diabetic Education Start: 07-13-2021 End: 07-13-2021 Patient encounter procedure 07/13/2021 Appointment IP Unit Case Parish RD, LD [facility] Diet and Nutrition Start: 07-09-2021 End: 07-09-2021 Patient encounter procedure 07/09/2021 Appointment Diabetes Services [facility] Start: 07-06-2021 End: 07-06-2021 Patient encounter procedure 07/06/2021 Appointment IP Unit Case Parish RD, LD [facility] Diet and Nutrition Start: 04-10-2021 Pneumococcal 0-64 years Vaccine (2 - PCV) Pneumococcal 0-64 years Vaccine (2 - PCV) [facility] Start: 04-10-2021 Pneumococcal vaccination PNEUMOCOCCAL VACCINE SERIES (2 of 2 - PCV) [facility] Start: 04-07-2021 COVID-19 Vaccine (3 - Booster for Pfizer series) COVID-19 Vaccine (3 - Booster for Pfizer series) [facility] Start: 02-06-2021 Creatinine measurement Creatinine monitoring [facility] Start: 09-29-2020 Breast cancer screen Breast cancer screen [place], [place] Start: 09-29-2020 Screening for malignant neoplasm of breast Breast cancer screen [facility] Start: 09-05-2020 A1C test (Diabetic or Prediabetic) A1C test (Diabetic or Prediabetic) [place], [place] Start: 09-05-2020 Creatinine monitoring Creatinine monitoring [place], [place] Start: 09-05-2020 HbA1c (Bld) [Mass fraction] A1C test (Diabetic or Prediabetic) [place], [place] Start: 09-05-2020 Hemoglobin A1c measurement A1C test (Diabetic or Prediabetic) [facility] Start: 09-05-2020 Lipid panel [facility] Start: 09-05-2020 Lipid screen Lipid screen [place], [place] Start: 09-05-2020 Potassium monitoring Potassium monitoring [facility] Start: 09-03-2020 Shingles Vaccine (2 of 3) Shingles Vaccine (2 of 3) [facility] Start: 09-03-2020 Shingles vaccine (3 of 3) Shingles vaccine (3 of 3) [place] [facility] Start: 03-31-2020 End: 03-31-2020 Office Visit 03/31/2020 Office Visit General Surgery Glenn Malik MD [address] [place] [address] [address] [place] [address] [facility] Start: 03-04-2020 Influenza vaccination Flu vaccine (#1) [place], [place] Start: 02-28-2020 End: 02-28-2020 Office Visit 02/28/2020 Office Visit General Surgery Glenn Malik MD [address] [place] [address] [address] [place] [address] [facility] Start: 09-30-2019 Screening for malignant neoplasm of breast MAMMOGRAM SCREENING DISCUSSION [facility] Start: 09-07-2019 End: 09-07-2019 Appointment 09/07/2019 Appointment Pulmonary Function Testing [facility] Start: 06-19-2019 Creatinine monitoring Creatinine monitoring [place], [place] Start: 06-19-2019 Potassium monitoring Potassium monitoring [place], [place] Start: 2012 Colon cancer screen colonoscopy Colon cancer screen colonoscopy [place] Start: 2012 Screening for malignant neoplasm of colon Colon cancer screen colon[place] Start: 2012 Shingles Vaccine (1 of 2) Shingles Vaccine (1 of 2) [place] Start: 11-16-2007 [facility]ening for malignant neoplasm of [facility] Start: 2002 Lipid panel LIPID SCREENING [facility] Start: 1992 Screening for malignant neoplasm of cervix [facility] Start: 11-16-1983 Cervical cancer screen Cervical cancer screen [place] Start: 11-16-1983 Screening for malignant neoplasm of cervix [facility] [employer] Start: 1980 Hepatitis C screening Hepatitis C screen [facility] Start: 1977 HIV screen HIV screen [place] Start: 1977 HIV screening [facility] Start: 1974 Depression Screen Depression Screen [facility] [employer] Start: 1972 Lipid screen Lipid screen [place] Start: 1962 Hepatitis C screen Hepatitis C screen [place] Start: 1962 Hepatitis C screening [facility] Calculated LDL cholesterol level [facility] End: 03-17-2020 CEA CEA Lab Routine One Time for 1 Occurrences starting 03/17/2020 until 03/17/2020 [place] Comment on above: One Time for 1 Occurrences starting 03/04 until 03/17/2020 CEA CEA Lab Routine 03/17/2020 12:00 PM EDT [place] Cholesterol.total/Ch ol esterol in HDL [Mass Ratio] in Serum or Plasma [facility] End: 08-27-2022 Echocardiogram complete Echocardiogram complete Echocardiography Routine Hypertension, unspecified type Bilateral leg edema 1 Occurrences starting 08/27/2022 until 08/27/2022 [facility] Phone: Comment on above: 1 Occurrences starting 08/27/2022 until 08/27/2022 EKG 12 Lead EKG 12 Lead ECG Routine Syncope and collapse Pre-operative clearance Essential hypertension Hyperlipidemia, unspecified hyperlipidemia type Vitamin D deficiency 09/06/2019 11:05 AM EST [facility] 12 Lead EKG 12 Lead ECG STAT 10/14/2022 9:44 PM EDT [employer] Phone: End: 09-07-2019 Full PFT Study With Bronchodilator Full PFT Study With Bronchodilator PFT Routine SOB (shortness of breath) 1 Occurrences starting 09/07/2019 until 09/07/2019 [facility] Comment on above: 1 Occurrences starting 09/07/2019 until 09/07/2019 End: 05-21-2021 Full PFT Study With Bronchodilator Full PFT Study With Bronchodilator PFT Routine SOB (shortness of breath) Obstructive sleep apnea syndrome Moderate persistent asthma without complication Tobacco abuse 1 Occurrences starting 05/21/2021 until 05/21/2021 [employer] Phone: Comment on above: 1 Occurrences starting 05/21/2021 until 05/21/2021 Glucose measurement estimated from glycated hemoglobin [facility]. PYLORI DETECTION Irais [facility] Comment on above: Release Upon Ordering for 1 Occurrences starting 03/17/2020 Hemoglobin A1c/Hemoglobin.total in Blood [facility] End: 08-10-2023 Hemoglobin A1c/Hemoglobin.total in Blood [employer] Phone: Comment on above: Once for 1 Occurrences starting 08/10/19 24 until 08/10/2023 Oxygen therapy [Minimum Data Set] Initiate Oxygen Therapy Protocol Respiratory Care Routine Daily until discontinued starting 03/17/2020 [email or web address] Comment on above: Daily until discontinued starting 2019 End: 10-14-2022 Oxygen therapy [Minimum Data Set] Initiate Oxygen Therapy Protocol Respiratory Care STAT One Time for 1 Occurrences starting 10/14/2022 until 10/14/2022 [employer] Phone: Comment on above: One Time for 1 Occurrences starting 10/02 until 10/14/2022 Patient Education Heart Failure, Adult (DC) [facility] Work Phone: End: 08-10-2023 Patient Fasting? [facility] Comment on above: Once for 1 Occurrences starting 08/10/19 24 until 08/10/2023 Patient referral [facility] Work Phone: Surgical Pathology Surgical Path ology Lab Routine Release Upon Ordering for 1 Occurrences starting 03/17/[address] [facility] [address] Comment on above: Release Upon Ordering for 1 Occurrences starting 03/17/2020 End: 02-19-2020 US NON OB TRANSVAGINAL US NON OB TRANSVAGINAL Imaging Routine Hypertrophy of uterus Right lower quadrant pain 1 Occurrences starting 02/19/2020 until 02/19/[address] [facility] [address] Comment on above: 1 Occurrences starting 02/19/2020 until 02/19/2020 US NON OB TRANSVAGINAL US NON OB TRANSVAGINAL Imaging Routine Hypertrophy of uterus Right lower quadrant pain 02/19/2020 2:36 PM EDT [facility] VLDL cholesterol measurement [facility] Immunizations Immunization Date Immunization Notes Care Provider [facility] 07-11-2024 influenza, seasonal, injectable, preservative free; Translations: [Fluzone TIV PF ] Myron Rust [facility] 03-18-2023 influenza, injectabl e, quadrivalent, preservative free Myron Rust [facility] 05-11-2022 influenza virus vaccine, unspecified formulation Lupis SCHWARTZ [facility] 05-11-2022 SARS-CoV-2 (COVID-19 ) [id number] Lupis SCHWARTZ [facility] 12-15-2021 COVID-19 mRNA, Comirnaty (Pfizer) [facility] 12-15-2021 SARS-CoV-2 mRNA (dwvaowvyltl-iclb-bsehk se) vaccine [id number] [facility] 06-12-2021 SARS-CoV-2 (COVID-19 ) mRNA BNT-162b2 vax [id number] [facility] 05-05-2021 influenza virus vaccine, unspecified formulation L[employer]isDirectly [facility] 10-06-2020 SARS-CoV-2 (COVID-19 ) mRNA BNT-162b2 [id number] [facility] 09-16-2020 SARS-CoV-2 (COVID-19 ) mRNA BNT-162b2 [id number] [facility] 07-09-2020 zoster vaccine, live [facility] L YNCH [facility] [employer] 04-10-2020 influenza virus vaccine, unspecified formulation Parish RUBIO [facility] [employer] 04-10-2020 pneumococcal polysaccharide vaccine, 23 valent Parish RUBIO [facility] [employer] 04-10-2020 tetanus toxoid, unspecified formulation Parish RUBIO [facility] [employer] 04-10-2020 zoster vaccine, live Parish L YNCH [facility] [employer] 05-08-2019 influenza virus vaccine, unspecified formulation Parish RUBIO [facility] 04-24-2018 influenza virus vaccine, unspecified formulation [facility] JOANNE [facility] [employer] 03-19-2018 influenza virus vaccine, unspecified formulation Mulu Dean [facility] 12-16-2017 pneumococcal polysaccharide vaccine, 23 valent Lupis SCHWARTZ [facility] [employer] 10-27-2014 tetanus toxoid, redu karen diphtheria toxoid, and acellular pertussis vaccine, adsorbed Lupis SCHWARTZ [facility] [employer] Payers Date Payer Category Payer Medicaid (Managed Care) [facility] COMM[facility] [id number] 2024 Medicaid [id number] 2023 Private Health Insurance 2022 Self-pay 2017 Private Health Insurance [facility] COMM[facility] xxxxxxxxx 2017-Present [phone] [address] [place] [address] xxxxxxxxx [id number] 2017 Private Health Insurance [id number]. [id number] 2017 Private Health Insurance [id number] 1.2.840.364598.1.13.239.2. [id number] 1962 Unknown [id number] 2.16.840.1.554539.3.579.2. 356 1962 Unknown [id number] 2.16.840.1.993439.3.579.2. 356 1962 Unknown [id number] 2.16.840.1.388536.3.579.2. 173 1962 Unknown [id number] 2.16.840.1.423683.3.579.2. 174 1962 Unknown [id number] 2.16.840.1.367285.3.579.2. 174 1962 Unknown [id number] 2.16.840.1.033878.3.579.2. 174 1962 Unknown [id number] 2.16.840.1.931097.3.579.2. 174 1962 Unknown [id number] 2.16.840.1.247522.3.579.2. 174 1962 Unknown [id number] 2.16.840.1.503381.3.579.2. 174 1962 Unknown [id number] 2.16.840.1.915248.3.579.2. 174 1962 Unknown [id number] 2.16.840.1.887187.3.579.2. 174 1962 Unknown [id number] 2.16.840.1.359576.3.579.2. 174 1962 Unknown [id number] 2.16.840.1.919813.3.579.2. 174 1962 Unknown [id number] 2.16.840.1.227489.3.579.2. 174 1962 Unknown [id number] 2.16.840.1.211144.3.579.2. 174 1962 Unknown [id number] 2.16.840.1.268051.3.579.2. 727 1963 Unknown [id number] 2.16.840.1.527088.3.579.2 1962 Unknown [id number] 2.16.840.1.168656.3.579.2 1962 Unknown [id number] 2.16.840.1.072443.3.579.2 1962 Unknown [id number] 2.16.840.1.229281.3.579. 1962 Unknown [id number] 2.16.840.1.054167.3.579. 1962 Unknown [id number] 2.16.840.1.058743.3.579. 1962 Unknown [id number] 2.16.840.1.977854.3.579.2 1962 Unknown [id number] 2.16.840.1.388859.3.579. 1962 Unknown [id number] 2.16.840.1.693715.3.579. 1962 Unknown [id number] 2.16.840.1.019528.3.579.2 1962 Unknown [id number] 2.16.840.1.993810.3.579.2 1962 Unknown [id number] 2.16.840.1.819272.3.579.2 1962 Unknown [id number] 2.16.840.1.814683.3.579.2 1962 Unknown [id number] 2.16.840.1.528175.3.579. 1962 Unknown [id number] 2.16.840.1.220141.3.579.2 1962 Unknown [id number] 2.16.840.1.747849.3.579.2 1962 Unknown [id number] 2.16.840.1.007851.3.579.2 1962 Unknown [id number] 2.16.840.1.477816.3.579.2 1962 Unknown [id number] 2.16.840.1.707588.3.579.2 1962 Unknown [id number] 2.16.840.1.030111.3.579.2 1962 Unknown [id number] 2.16.840.1.310160.3.579. 1962 Unknown [id number] 2.16.840.1.800070.3.579. 1962 Unknown [id number] 2.16.840.1.653717.3.579. 1962 Unknown [id number] 2.16.840.1.415764.3.579. 1962 Unknown [id number] 2.16.840.1.103774.3.579. 1962 Unknown [id number] 2.16.840.1.782719.3.579.2 1962 Unknown [id number] 2.16.840.1.786832.3.579.2 1962 Unknown [id number] 2.16.840.1.958595.3.579.2 1962 Unknown [id number] 2.16.840.1.778735.3.579.2 1962 Unknown [id number] 2.16.840.1.072557.3.579.2 1962 Unknown [id number] 2.16.840.1.669474.3.579.2 1962 Unknown [id number] 2.16.840.1.324548.3.579.2. 727 1962 Unknown [id number] 2.16.840.1.717656.3.579.2. 727 1962 Unknown [id number] 2.16.840.1.405308.3.579.2. 983 1962 Unknown [id number] 2.16.840.1.524100.3.579.2. 727 1962 Unknown [id number] 2.16.840.1.387460.3.579.2. 727 1962 Unknown [id number] 2.16.840.1.669485.3.579.2. 727 1962 Unknown [id number] 2.16.840.1.464180.3.579.2. 196 1962 Unknown [id number] 2.16.840.1.241306.3.579.2. 196 1962 Unknown [id number] 2.16.840.1.891314.3.579.2. 196 1962 Unknown [id number] 2.16.840.1.576231.3.579.2. 196 1962 Unknown [id number] 2.16.840.1.066884.3.579.2. 196 1962 Unknown [id number] 2.16.840.1.055286.3.579.2. 727 1962 Unknown [id number] 2.16.840.1.514459.3.579.2. 727 1962 Unknown [id number] 2.16.840.1.743252.3.579.2. 727 Unknown [id number] 2.16.840.1.137912.3.579.2. 531 Social History Date Type Detail Facility Start: 07-04-1979 End: 11-07-2024 Tobacco smoking status NHIS Current every day smoker [place] Start: 07-04-1979 History of tobacco use Cigarette Smo ker [place] Start: 09-06-2019 End: 11-07-2024 Cigarettes smoked current (pack per day) - Reported [place] Start: 09-06-2019 End: 11-07-2024 Alcohol intake Current drinker of alcohol (finding) [place] Start: 02-23-2018 Tobacco Comment 5 cigarettes/day [place] Start: 02-23-2018 Alcohol Comment occas. Irais Thurman [place], [place] Start: 1960 Sex Assigned At Not on file [place] Start: 09-06-2019 End: 11-07-2024 Tobacco use and exposure Never used [place] Start: 10-04-2022 End: 10-14-2022 Exposure to SARS-CoV-2 (event) Not sure [place] Start: 12-30-2021 End: 02-04-2025 Tobacco smoking status Heavy tobacco smoker (finding) [facility] [employer] Tobacco smoking status Never [facility] [employer] Start: 10-14-2022 End: 11-07-2024 Sex Assigned At Female [facility] [employer] Start: 09-10-2022 End: 09-10-2022 Tobacco smoking status NHIS Smoker (finding) [facility] Start: 1960 Sex Assigned At Female F [facility] Start: 10-15-2022 History SDOH Alcohol Frequency 2 [employer] Phone: Start: 10-15-2022 History SDOH Alcohol Std Drinks 5 [employer] Phone: Start: 10-15-2022 History SDOH Alcohol Binge 4 [employer] Phone: Start: 10-14-2022 Alcohol Comment patient had 2 bottles of rum today [employer] Phone: How often to you hav e a drink containing alcohol? Monthly or less Ch[facility] How many standard drinks containing alcohol do you have on a typical day? 10 or more Chrends How often do you hav e 6 or more drinks on 1 occasion? Weekly [employer] Start: 11-07-2024 Alcohol Comment occasionally [employer] Start: 11-08-2016 End: 09-28-2024 Sex Female (finding) [employer] Sexual Orientation [facility] [employer] [facility] Equipment Procedure Code Equipment Code Equipment Origin al Text Equipment Identifier Dates Cement Smartghv W/ Gent 40gr Must Order 20ea [id number] Start: 03-15-2018 Cement Smartghv W/ Gent 40gr Must Order 20ea [id number] Start: 03-15-2018 Cement Smartghv W/ Gent 40gr Must Order 20ea [id number] Start: 04-26-2018 Impl Knee Patell a Asym X3 [id number] Start: 04-26-2018 Lancets, See Instructions, 300 EA, 3, Use to check BS TID and PRN dx E11.9, [facility] [employer], Supply, 170, cm, 05/27/21 8:31:00 EST, Height/Length Dosing, 157.8, kg, 05/27/21 8:31:00 EST, Weight Dosing Start: 06-03-2021 Test Strips, See Instructions, 300 EA, 3, Use to test BS TID and PRN dx E11.9, [facility] [employer], Supply, 170, cm, 05/27/21 8:31:00 EST, Height/Length Dosing, 157.8, kg, 05/27/21 8:31:00 EST, Weight Dosing Start: 06-03-2021 Lancets, See Instructions, 100 EA, 3, Use to check BS daily dx E11.9, [facility] #[id number], Supply, 163, cm, 12/30/21 11:09:00 EDT, Height/Length Dosing, 154, kg, 12/30/21 11:09:00 EDT, Weight Dosing Start: 04-13-2022 Test Strips, See Instructions, 100 EA, 3, Use to test BS daily dx E11.9, [facility] #[id number], Supply, 163, cm, 12/30/21 11:09:00 EDT, Height/Length Dosing, 154, kg, 12/30/21 11:09:00 EDT, Weight Dosing Start: 04-13-2022 Lancets, See Instructions, 100 EA, 3, Use to check BS daily dx E11.9, [facility] #[id number], Supply, 163, cm, 12/30/21 11:09:00 EDT, Height/Length Dosing, 154, kg, 12/30/21 11:09:00 EDT, Weight Dosing Start: 04-13-2022 Test Strips, See Instructions, 100 EA, 3, Use to test BS daily dx E11.9, [facility] #[id number], Supply, 163, cm, 12/30/21 11:09:00 EDT, Height/Length Dosing, 154, kg, 12/30/21 11:09:00 EDT, Weight Dosing Start: 04-13-2022 Lancets, See Instructions, 100 EA, 3, Use to check BS daily dx E11.9, [facility] #[id number], Supply, 163, cm, 12/30/21 11:09:00 EDT, Height/Length Dosing, 154, kg, 12/30/21 11:09:00 EDT, Weight Dosing Start: 04-13-2022 Test Strips, See Instructions, 100 EA, 3, Use to test BS daily dx E11.9, [facility] #[id number], Supply, 163, cm, 12/30/21 11:09:00 EDT, Height/Length Dosing, 154, kg, 12/30/21 11:09:00 EDT, Weight Dosing Start: 04-13-2022 Lancets, See Instructions, 100 EA, 3, Use to check BS daily dx E11.9, [facility] #[id number], Supply, 163, cm, 12/30/21 11:09:00 EDT, Height/Length Dosing, 154, kg, 12/30/21 11:09:00 EDT, Weight Dosing Start: 04-13-2022 Test Strips, See Instructions, 100 EA, 3, Use to test BS daily dx E11.9, [facility] #[id number], Supply, 163, cm, 12/30/21 11:09:00 EDT, Height/Length Dosing, 154, kg, 12/30/21 11:09:00 EDT, Weight Dosing Start: 04-13-2022 Lancets, See Instructions, 100 EA, 3, Use to check BS daily dx E11.9, [facility] #[id number], Supply, 163, cm, 12/30/21 11:09:00 EDT, Height/Length Dosing, 154, kg, 12/30/21 11:09:00 EDT, Weight Dosing Start: 04-13-2022 Test Strips, See Instructions, 100 EA, 3, Use to test BS daily dx E11.9, [facility] #[id number], Supply, 163, cm, 12/30/21 11:09:00 EDT, Height/Length Dosing, 154, kg, 12/30/21 11:09:00 EDT, Weight Dosing Start: 04-13-2022 Lancets, See Instructions, 100 EA, 3, Use to check BS daily dx E11.9, [facility] #[id number], Supply, 163, cm, 12/30/21 11:09:00 EDT, Height/Length Dosing, 154, kg, 12/30/21 11:09:00 EDT, Weight Dosing Start: 04-13-2022 Test Strips, See Instructions, 100 EA, 3, Use to test BS daily dx E11.9, [facility] #[id number], Supply, 163, cm, 12/30/21 11:09:00 EDT, Height/Length Dosing, 154, kg, 12/30/21 11:09:00 EDT, Weight Dosing Start: 04-13-2022 Lancets, See Instructions, 100 EA, 3, Use to check BS daily dx E11.9, [facility] #[id number], Supply, 163, cm, 12/30/21 11:09:00 EDT, Height/Length Dosing, 154, kg, 12/30/21 11:09:00 EDT, Weight Dosing Start: 04-13-2022 Test Strips, See Instructions, 100 EA, 3, Use to test BS daily dx E11.9, [facility] #[id number], Supply, 163, cm, 12/30/21 11:09:00 EDT, Height/Length Dosing, 154, kg, 12/30/21 11:09:00 EDT, Weight Dosing Start: 04-13-2022 Lancets, See Instructions, 100 EA, 3, Use to check BS daily dx E11.9, [facility] #[id number], Supply, 163, cm, 12/30/21 11:09:00 EDT, Height/Length Dosing, 154, kg, 12/30/21 11:09:00 EDT, Weight Dosing Start: 04-13-2022 Test Strips, See Instructions, 100 EA, 3, Use to test BS daily dx E11.9, [facility] #[id number], Supply, 163, cm, 12/30/21 11:09:00 EDT, Height/Length Dosing, 154, kg, 12/30/21 11:09:00 EDT, Weight Dosing Start: 04-13-2022 Lancets, See Instructions, 100 EA, 3, Use to check BS daily dx E11.9, [facility] #[id number], Supply, 163, cm, 12/30/21 11:09:00 EDT, Height/Length Dosing, 154, kg, 12/30/21 11:09:00 EDT, Weight Dosing Start: 04-13-2022 Test Strips, See Instructions, 100 EA, 3, Use to test BS daily dx E11.9, [facility] #[id number], Supply, 163, cm, 12/30/21 11:09:00 EDT, Height/Length Dosing, 154, kg, 12/30/21 11:09:00 EDT, Weight Dosing Start: 04-13-2022 Lancets, See Instructions, 100 EA, 3, Use to check BS daily dx E11.9, [facility] #[id number], Supply, 163, cm, 12/30/21 11:09:00 EDT, Height/Length Dosing, 154, kg, 12/30/21 11:09:00 EDT, Weight Dosing Start: 04-13-2022 Test Strips, See Instructions, 100 EA, 3, Use to test BS daily dx E11.9, [facility] #[id number], Supply, 163, cm, 12/30/21 11:09:00 EDT, Height/Length Dosing, 154, kg, 12/30/21 11:09:00 EDT, Weight Dosing Start: 04-13-2022 Lancets, See Instructions, 100 EA, 3, Use to check BS daily dx E11.9, [facility] #[id number], Supply, 163, cm, 12/30/21 11:09:00 EDT, Height/Length Dosing, 154, kg, 12/30/21 11:09:00 EDT, Weight Dosing Start: 04-13-2022 Test Strips, See Instructions, 100 EA, 3, Use to test BS daily dx E11.9, [facility] #[id number], Supply, 163, cm, 12/30/21 11:09:00 EDT, Height/Length Dosing, 154, kg, 12/30/21 11:09:00 EDT, Weight Dosing Start: 04-13-2022 Lancets, See Instructions, 100 EA, 3, Use to check BS daily dx E11.9, [facility] #[id number], Supply, 163, cm, 12/30/21 11:09:00 EDT, Height/Length Dosing, 154, kg, 12/30/21 11:09:00 EDT, Weight Dosing Start: 04-13-2022 Test Strips, See Instructions, 100 EA, 3, Use to test BS daily dx E11.9, [facility] #[id number], Supply, 163, cm, 12/30/21 11:09:00 EDT, Height/Length Dosing, 154, kg, 12/30/21 11:09:00 EDT, Weight Dosing Start: 04-13-2022 Lancets, See Instructions, 100 EA, 3, Use to check BS daily dx E11.9, [facility] #[id number], Supply, 163, cm, 12/30/21 11:09:00 EDT, Height/Length Dosing, 154, kg, 12/30/21 11:09:00 EDT, Weight Dosing Start: 04-13-2022 Test Strips, See Instructions, 100 EA, 3, Use to test BS daily dx E11.9, [facility] #[id number], Supply, 163, cm, 12/30/21 11:09:00 EDT, Height/Length Dosing, 154, kg, 12/30/21 11:09:00 EDT, Weight Dosing Start: 04-13-2022 Lancets, See Instructions, 100 EA, 3, Use to check BS daily dx E11.9, [facility] #[id number], Supply, 163, cm, 12/30/21 11:09:00 EDT, Height/Length Dosing, 154, kg, 12/30/21 11:09:00 EDT, Weight Dosing Start: 04-13-2022 Test Strips, See Instructions, 100 EA, 3, Use to test BS daily dx E11.9, [facility] #[id number], Supply, 163, cm, 12/30/21 11:09:00 EDT, Height/Length Dosing, 154, kg, 12/30/21 11:09:00 EDT, Weight Dosing Start: 04-13-2022 Lancets, See Instructions, 100 EA, 3, Use to check BS daily dx E11.9, [facility] #[id number], Supply, 163, cm, 12/30/21 11:09:00 EDT, Height/Length Dosing, 154, kg, 12/30/21 11:09:00 EDT, Weight Dosing Start: 04-13-2022 Test Strips, See Instructions, 100 EA, 3, Use to test BS daily, [facility] #[id number], Supply, 167.5, cm, 10/18/22 13:30:00 EDT, Height/Length Dosing, 147, kg, 10/18/22 13:30:00 EDT, Weight Dosing Start: 10-19-2022 Lancets, See Instructions, 100 EA, 3, Use to check BS daily dx E11.9, [facility] #[id number], Supply, 163, cm, 12/30/21 11:09:00 EDT, Height/Length Dosing, 154, kg, 12/30/21 11:09:00 EDT, Weight Dosing Start: 04-13-2022 Test Strips, See Instructions, 100 EA, 3, Use to test BS daily, [facility] #[id number], Supply, 167.5, cm, 10/18/22 13:30:00 EDT, Height/Length Dosing, 147, kg, 10/18/22 13:30:00 EDT, Weight Dosing Start: 10-19-2022 Lancets, See Instructions, 100 EA, 3, Use to check BS daily dx E11.9, [facility] #[id number], Supply, 163, cm, 12/30/21 11:09:00 EDT, Height/Length Dosing, 154, kg, 12/30/21 11:09:00 EDT, Weight Dosing Start: 04-13-2022 Test Strips, See Instructions, 100 EA, 3, Use to test BS daily, [facility] #[id number], Supply, 167.5, cm, 10/18/22 13:30:00 EDT, Height/Length Dosing, 147, kg, 10/18/22 13:30:00 EDT, Weight Dosing Start: 10-19-2022 Lancets, See Instructions, 100 EA, 3, Use to check BS daily dx E11.9, [facility] #[id number], Supply, 163, cm, 12/30/21 11:09:00 EDT, Height/Length Dosing, 154, kg, 12/30/21 11:09:00 EDT, Weight Dosing Start: 04-13-2022 Test Strips, See Instructions, 100 EA, 3, Use to test BS daily, [facility] #[id number], Supply, 167.5, cm, 10/18/22 13:30:00 EDT, Height/Length Dosing, 147, kg, 10/18/22 13:30:00 EDT, Weight Dosing Start: 10-19-2022 Lancets, See Instructions, 100 EA, 3, Use to check BS daily dx E11.9, [facility] #[id number], Supply, 163, cm, 12/30/21 11:09:00 EDT, Height/Length Dosing, 154, kg, 12/30/21 11:09:00 EDT, Weight Dosing Start: 04-13-2022 Test Strips, See Instructions, 100 EA, 3, Use to test BS daily, [facility] #[id number], Supply, 167.5, cm, 10/18/22 13:30:00 EDT, Height/Length Dosing, 147, kg, 10/18/22 13:30:00 EDT, Weight Dosing Start: 10-19-2022 Lancets, See Instructions, 100 EA, 3, Use to check BS daily dx E11.9, [facility] #[id number], Supply, 163, cm, 12/30/21 11:09:00 EDT, Height/Length Dosing, 154, kg, 12/30/21 11:09:00 EDT, Weight Dosing Start: 04-13-2022 Test Strips, See Instructions, 100 EA, 3, Use to test BS daily, [facility] #[id number], Supply, 167.5, cm, 10/18/22 13:30:00 EDT, Height/Length Dosing, 147, kg, 10/18/22 13:30:00 EDT, Weight Dosing Start: 10-19-2022 Lancets, See Instructions, 100 EA, 3, Use to check BS daily dx E11.9, [facility] #[id number], Supply, 163, cm, 12/30/21 11:09:00 EDT, Height/Length Dosing, 154, kg, 12/30/21 11:09:00 EDT, Weight Dosing Start: 04-13-2022 Test Strips, See Instructions, 100 EA, 3, Use to test BS daily, [facility] #[id number], Supply, 167.5, cm, 10/18/22 13:30:00 EDT, Height/Length Dosing, 147, kg, 10/18/22 13:30:00 EDT, Weight Dosing Start: 10-19-2022 Lancets, See Instructions, 100 EA, 3, Use to check BS daily dx E11.9, [facility] #[id number], Supply, 163, cm, 12/30/21 11:09:00 EDT, Height/Length Dosing, 154, kg, 12/30/21 11:09:00 EDT, Weight Dosing Start: 04-13-2022 Test Strips, See Instructions, 100 EA, 3, Use to test BS daily, [facility] #[id number], Supply, 167.5, cm, 10/18/22 13:30:00 EDT, Height/Length Dosing, 147, kg, 10/18/22 13:30:00 EDT, Weight Dosing Start: 10-19-2022 Lancets, See Instructions, 100 EA, 3, Use to check BS daily dx E11.9, [facility] #[id number], Supply, 163, cm, 12/30/21 11:09:00 EDT, Height/Length Dosing, 154, kg, 12/30/21 11:09:00 EDT, Weight Dosing Start: 04-13-2022 Test Strips, See Instructions, 100 EA, 3, Use to test BS daily, [facility] #[id number], Supply, 167.5, cm, 10/18/22 13:30:00 EDT, Height/Length Dosing, 147, kg, 10/18/22 13:30:00 EDT, Weight Dosing Start: 10-19-2022 Lancets, See Instructions, 100 EA, 3, Use to check BS daily dx E11.9, [facility] #[id number], Supply, 163, cm, 12/30/21 11:09:00 EDT, Height/Length Dosing, 154, kg, 12/30/21 11:09:00 EDT, Weight Dosing Start: 04-13-2022 Test Strips, See Instructions, 100 EA, 3, Use to test BS daily, [facility] #[id number], Supply, 167.5, cm, 10/18/22 13:30:00 EDT, Height/Length Dosing, 147, kg, 10/18/22 13:30:00 EDT, Weight Dosing Start: 10-19-2022 Lancets, See Instructions, 100 EA, 3, Use to check BS daily dx E11.9, [facility] #[id number], Supply, 163, cm, 12/30/21 11:09:00 EDT, Height/Length Dosing, 154, kg, 12/30/21 11:09:00 EDT, Weight Dosing Start: 04-13-2022 Test Strips, See Instructions, 100 EA, 3, Use to test BS daily, [facility] #[id number], Supply, 167.5, cm, 10/18/22 13:30:00 EDT, Height/Length Dosing, 147, kg, 10/18/22 13:30:00 EDT, Weight Dosing Start: 10-19-2022 Lancets, See Instructions, 100 EA, 3, Use to check BS daily dx E11.9, [facility] #[id number], Supply, 163, cm, 12/30/21 11:09:00 EDT, Height/Length Dosing, 154, kg, 12/30/21 11:09:00 EDT, Weight Dosing Start: 04-13-2022 Test Strips, See Instructions, 100 EA, 3, Use to test BS daily, [facility] #[id number], Supply, 167.5, cm, 10/18/22 13:30:00 EDT, Height/Length Dosing, 147, kg, 10/18/22 13:30:00 EDT, Weight Dosing Start: 10-19-2022 Lancets, See Instructions, 100 EA, 3, Use to check BS daily dx E11.9, [facility] #[id number], Supply, 163, cm, 12/30/21 11:09:00 EDT, Height/Length Dosing, 154, kg, 12/30/21 11:09:00 EDT, Weight Dosing Start: 04-13-2022 Test Strips, See Instructions, 100 EA, 3, Use to test BS daily, [facility] #[id number], Supply, 167.5, cm, 10/18/22 13:30:00 EDT, Height/Length Dosing, 147, kg, 10/18/22 13:30:00 EDT, Weight Dosing Start: 10-19-2022 Lancets, See Instructions, 100 EA, 3, Use to check BS daily dx E11.9, [facility] #[id number], Supply, 163, cm, 12/30/21 11:09:00 EDT, Height/Length Dosing, 154, kg, 12/30/21 11:09:00 EDT, Weight Dosing Start: 04-13-2022 Test Strips, See Instructions, 100 EA, 3, Use to test BS daily, [facility] #[id number], Supply, 167.5, cm, 10/18/22 13:30:00 EDT, Height/Length Dosing, 147, kg, 10/18/22 13:30:00 EDT, Weight Dosing Start: 10-19-2022 Unknown Unknown 12/23/23 Non Biological Unknown FDA Start: 12-23-2023 Lancets, See Instructions, 100 EA, 3, Use to check BS daily dx E11.9, [facility] #[id number], Supply, 163, cm, 12/30/21 11:09:00 EDT, Height/Length Dosing, 154, kg, 12/30/21 11:09:00 EDT, Weight Dosing Start: 04-13-2022 Test Strips, See Instructions, 100 EA, 3, Use to test BS daily, [facility] #[id number], Supply, 167.5, cm, 10/18/22 13:30:00 EDT, Height/Length Dosing, 147, kg, 10/18/22 13:30:00 EDT, Weight Dosing Start: 10-19-2022 Unknown Unknown 12/23/23 Non Biological Unknown FDA Start: 12-23-2023 Lancets, See Instructions, 100 EA, 3, Use to check BS daily dx E11.9, [facility] #[id number], Supply, 163, cm, 12/30/21 11:09:00 EDT, Height/Length Dosing, 154, kg, 12/30/21 11:09:00 EDT, Weight Dosing Start: 04-13-2022 Test Strips, See Instructions, 100 EA, 3, Use to test BS daily, [facility] #[id number], Supply, 167.5, cm, 10/18/22 13:30:00 EDT, Height/Length Dosing, 147, kg, 10/18/22 13:30:00 EDT, Weight Dosing Start: 10-19-2022 Unknown Unknown 12/23/23 Non Biological Unknown FDA Start: 12-23-2023 Lancets, See Instructions, 100 EA, 3, Use to check BS daily dx E11.9, [facility] #[id number], Supply, 163, cm, 12/30/21 11:09:00 EDT, Height/Length Dosing, 154, kg, 12/30/21 11:09:00 EDT, Weight Dosing Start: 04-13-2022 Test Strips, See Instructions, 100 EA, 3, Use to test BS daily, [facility] #[id number], Supply, 167.5, cm, 10/18/22 13:30:00 EDT, Height/Length Dosing, 147, kg, 10/18/22 13:30:00 EDT, Weight Dosing Start: 10-19-2022 Unknown Unknown 12/23/23 Non Biological Unknown FDA Start: 12-23-2023 Lancets, See Instructions, 100 EA, 3, Use to check BS daily dx E11.9, [facility] #[id number], Supply, 163, cm, 12/30/21 11:09:00 EDT, Height/Length Dosing, 154, kg, 12/30/21 11:09:00 EDT, Weight Dosing Start: 04-13-2022 Test Strips, See Instructions, 100 EA, 3, Use to test BS daily, [facility] #[id number], Supply, 167.5, cm, 10/18/22 13:30:00 EDT, Height/Length Dosing, 147, kg, 10/18/22 13:30:00 EDT, Weight Dosing Start: 10-19-2022 Unknown Unknown 12/23/23 Non Biological Unknown FDA Start: 12-23-2023 Lancets, See Instructions, 100 EA, 3, Use to check BS daily dx E11.9, [facility] #[id number], Supply, 163, cm, 12/30/21 11:09:00 EDT, Height/Length Dosing, 154, kg, 12/30/21 11:09:00 EDT, Weight Dosing Start: 04-13-2022 Test Strips, See Instructions, 100 EA, 3, Use to test BS daily, [facility] #[id number], Supply, 167.5, cm, 10/18/22 13:30:00 EDT, Height/Length Dosing, 147, kg, 10/18/22 13:30:00 EDT, Weight Dosing Start: 10-19-2022 Unknown Unknown 12/23/23 Non Biological Unknown FDA Start: 12-23-2023 Lancets, See Instructions, 100 EA, 3, Use to check BS daily dx E11.9, [facility] #[id number], Supply, 163, cm, 12/30/21 11:09:00 EDT, Height/Length Dosing, 154, kg, 12/30/21 11:09:00 EDT, Weight Dosing Start: 04-13-2022 Test Strips, See Instructions, 100 EA, 3, Use to test BS daily, [facility] #[id number], Supply, 167.5, cm, 10/18/22 13:30:00 EDT, Height/Length Dosing, 147, kg, 10/18/22 13:30:00 EDT, Weight Dosing Start: 10-19-2022 Unknown Unknown 12/23/23 Non Biological Unknown FDA Start: 12-23-2023 Lancets, See Instructions, 100 EA, 3, Use to check BS daily dx E11.9, [facility] #[id number], Supply, 163, cm, 12/30/21 11:09:00 EDT, Height/Length Dosing, 154, kg, 12/30/21 11:09:00 EDT, Weight Dosing Start: 04-13-2022 Test Strips, See Instructions, 100 EA, 3, Use to test BS daily, [facility] #[id number], Supply, 167.5, cm, 10/18/22 13:30:00 EDT, Height/Length Dosing, 147, kg, 10/18/22 13:30:00 EDT, Weight Dosing Start: 10-19-2022 Unknown Unknown 12/23/23 Non Biological Unknown FDA Start: 12-23-2023 Lancets, See Instructions, 100 EA, 3, Use to check BS daily dx E11.9, [facility] #[id number], Supply, 163, cm, 12/30/21 11:09:00 EDT, Height/Length Dosing, 154, kg, 12/30/21 11:09:00 EDT, Weight Dosing Start: 04-13-2022 Test Strips, See Instructions, 100 EA, 3, Use to test BS daily, [facility] #[id number], Supply, 167.5, cm, 10/18/22 13:30:00 EDT, Height/Length Dosing, 147, kg, 10/18/22 13:30:00 EDT, Weight Dosing Start: 10-19-2022 Unknown Unknown 12/23/23 Non Biological Unknown FDA Start: 12-23-2023 Lancets, See Instructions, 100 EA, 3, Use to check BS daily dx E11.9, [facility] #[id number], Supply, 163, cm, 12/30/21 11:09:00 EDT, Height/Length Dosing, 154, kg, 12/30/21 11:09:00 EDT, Weight Dosing Start: 04-13-2022 Test Strips, See Instructions, 100 EA, 3, Use to test BS daily, [facility] #[id number], Supply, 167.5, cm, 10/18/22 13:30:00 EDT, Height/Length Dosing, 147, kg, 10/18/22 13:30:00 EDT, Weight Dosing Start: 10-19-2022 Unknown Unknown 12/23/23 Non Biological Unknown FDA Start: 12-23-2023 Lancets, See Instructions, 100 EA, 3, Use to check BS daily dx E11.9, [facility] #[id number], Supply, 163, cm, 12/30/21 11:09:00 EDT, Height/Length Dosing, 154, kg, 12/30/21 11:09:00 EDT, Weight Dosing Start: 04-13-2022 Test Strips, See Instructions, 100 EA, 3, Use to test BS daily, [facility] #[id number], Supply, 167.5, cm, 10/18/22 13:30:00 EDT, Height/Length Dosing, 147, kg, 10/18/22 13:30:00 EDT, Weight Dosing Start: 10-19-2022 Unknown Unknown 12/23/23 Non Biological Unknown FDA Start: 12-23-2023 Lancets, See Instructions, 100 EA, 3, Use to check BS daily dx E11.9, [facility] #[id number], Supply, 163, cm, 12/30/21 11:09:00 EDT, Height/Length Dosing, 154, kg, 12/30/21 11:09:00 EDT, Weight Dosing Start: 04-13-2022 Test Strips, See Instructions, 100 EA, 3, Use to test BS daily, [facility] #[id number], Supply, 167.5, cm, 10/18/22 13:30:00 EDT, Height/Length Dosing, 147, kg, 10/18/22 13:30:00 EDT, Weight Dosing Start: 10-19-2022 Unknown Unknown 12/23/23 Non Biological Unknown FDA Start: 12-23-2023 Lancets, See Instructions, 100 EA, 3, Use to check BS daily dx E11.9, [facility] #[id number], Supply, 163, cm, 12/30/21 11:09:00 EDT, Height/Length Dosing, 154, kg, 12/30/21 11:09:00 EDT, Weight Dosing Start: 04-13-2022 Test Strips, See Instructions, 100 EA, 3, Use to test BS daily, [facility] #[id number], Supply, 167.5, cm, 10/18/22 13:30:00 EDT, Height/Length Dosing, 147, kg, 10/18/22 13:30:00 EDT, Weight Dosing Start: 10-19-2022 Unknown Unknown 12/23/23 Non Biological Unknown FDA Start: 12-23-2023 Lancets, See Instructions, 100 EA, 3, Use to check BS daily dx E11.9, [facility] #[id number], Supply, 163, cm, 12/30/21 11:09:00 EDT, Height/Length Dosing, 154, kg, 12/30/21 11:09:00 EDT, Weight Dosing Start: 04-13-2022 Test Strips, See Instructions, 100 EA, 3, Use to test BS daily, [facility] #[id number], Supply, 167.5, cm, 10/18/22 13:30:00 EDT, Height/Length Dosing, 147, kg, 10/18/22 13:30:00 EDT, Weight Dosing Start: 10-19-2022 Unknown Unknown 12/23/23 Non Biological Unknown FDA Start: 12-23-2023 Lancets, See Instructions, 100 EA, 3, Use to check BS daily dx E11.9, [facility] #[id number], Supply, 163, cm, 12/30/21 11:09:00 EDT, Height/Length Dosing, 154, kg, 12/30/21 11:09:00 EDT, Weight Dosing Start: 04-13-2022 Test Strips, See Instructions, 100 EA, 3, Use to test BS daily, [facility] #[id number], Supply, 167.5, cm, 10/18/22 13:30:00 EDT, Height/Length Dosing, 147, kg, 10/18/22 13:30:00 EDT, Weight Dosing Start: 10-19-2022 Unknown Unknown 12/23/23 Non Biological Unknown FDA Start: 12-23-2023 Lancets, See Instructions, 100 EA, 3, Use to check BS daily dx E11.9, [facility] #[id number], Supply, 163, cm, 12/30/21 11:09:00 EDT, Height/Length Dosing, 154, kg, 12/30/21 11:09:00 EDT, Weight Dosing Start: 04-13-2022 Test Strips, See Instructions, 100 EA, 3, Use to test BS daily, [facility] #[id number], Supply, 167.5, cm, 10/18/22 13:30:00 EDT, Height/Length Dosing, 147, kg, 10/18/22 13:30:00 EDT, Weight Dosing Start: 10-19-2022 Unknown Unknown 12/23/23 Non Biological Unknown FDA Start: 12-23-2023 Lancets, See Instructions, 100 EA, 3, Use to check BS daily dx E11.9, [facility] #[id number], Supply, 163, cm, 12/30/21 11:09:00 EDT, Height/Length Dosing, 154, kg, 12/30/21 11:09:00 EDT, Weight Dosing Start: 04-13-2022 Test Strips, See Instructions, 100 EA, 3, Use to test BS daily, [facility] #[id number], Supply, 167.5, cm, 10/18/22 13:30:00 EDT, Height/Length Dosing, 147, kg, 10/18/22 13:30:00 EDT, Weight Dosing Start: 10-19-2022 Unknown Unknown 12/23/23 Non Biological Unknown FDA Start: 12-23-2023 Lancets, See Instructions, 100 EA, 3, Use to check BS daily dx E11.9, [facility] #[id number], Supply, 163, cm, 12/30/21 11:09:00 EDT, Height/Length Dosing, 154, kg, 12/30/21 11:09:00 EDT, Weight Dosing Start: 04-13-2022 Test Strips, See Instructions, 100 EA, 3, Use to test BS daily, [facility] #[id number], Supply, 167.5, cm, 10/18/22 13:30:00 EDT, Height/Length Dosing, 147, kg, 10/18/22 13:30:00 EDT, Weight Dosing Start: 10-19-2022 Unknown Unknown 12/23/23 Non Biological Unknown FDA Start: 12-23-2023 Lancets, See Instructions, 100 EA, 3, Use to check BS daily dx E11.9, [facility] #[id number], Supply, 163, cm, 12/30/21 11:09:00 EDT, Height/Length Dosing, 154, kg, 12/30/21 11:09:00 EDT, Weight Dosing Start: 04-13-2022 Test Strips, See Instructions, 100 EA, 3, Use to test BS daily, [facility] #[id number], Supply, 167.5, cm, 10/18/22 13:30:00 EDT, Height/Length Dosing, 147, kg, 10/18/22 13:30:00 EDT, Weight Dosing Start: 10-19-2022 Unknown Unknown 12/23/23 Non Biological Unknown FDA Start: 12-23-2023 Lancets, See Instructions, 100 EA, 3, Use to check BS daily dx E11.9, [facility] #[id number], Supply, 163, cm, 12/30/21 11:09:00 EDT, Height/Length Dosing, 154, kg, 12/30/21 11:09:00 EDT, Weight Dosing Start: 04-13-2022 Test Strips, See Instructions, 100 EA, 3, Use to test BS daily, [facility] #[id number], Supply, 167.5, cm, 10/18/22 13:30:00 EDT, Height/Length Dosing, 147, kg, 10/18/22 13:30:00 EDT, Weight Dosing Start: 10-19-2022 Unknown Unknown 12/23/23 Non Biological Unknown FDA Start: 12-23-2023 Lancets, See Instructions, 100 EA, 3, Use to check BS daily dx E11.9, [facility] #[id number], Supply, 163, cm, 12/30/21 11:09:00 EDT, Height/Length Dosing, 154, kg, 12/30/21 11:09:00 EDT, Weight Dosing Start: 04-13-2022 Test Strips, See Instructions, 100 EA, 3, Use to test BS daily, [facility] #[id number], Supply, 167.5, cm, 10/18/22 13:30:00 EDT, Height/Length Dosing, 147, kg, 10/18/22 13:30:00 EDT, Weight Dosing Start: 10-19-2022 Unknown Unknown 12/23/23 Non Biological Unknown FDA Start: 12-23-2023 Lancets, See Instructions, 100 EA, 3, Use to check BS daily dx E11.9, [facility] #[id number], Supply, 163, cm, 12/30/21 11:09:00 EDT, Height/Length Dosing, 154, kg, 12/30/21 11:09:00 EDT, Weight Dosing Start: 04-13-2022 Test Strips, See Instructions, 100 EA, 3, Use to test BS daily, [facility] #[id number], Supply, 167.5, cm, 10/18/22 13:30:00 EDT, Height/Length Dosing, 147, kg, 10/18/22 13:30:00 EDT, Weight Dosing Start: 10-19-2022 Unknown Unknown 12/23/23 Non Biological Unknown FDA Start: 12-23-2023 Lancets, See Instructions, 100 EA, 3, Use to check BS daily dx E11.9, [facility] #[id number], Supply, 163, cm, 12/30/21 11:09:00 EDT, Height/Length Dosing, 154, kg, 12/30/21 11:09:00 EDT, Weight Dosing Start: 04-13-2022 Test Strips, See Instructions, 100 EA, 3, Use to test BS daily, [facility] #[id number], Supply, 167.5, cm, 10/18/22 13:30:00 EDT, Height/Length Dosing, 147, kg, 10/18/22 13:30:00 EDT, Weight Dosing Start: 10-19-2022 Goals Date Patient Goal Desired Activity /State Functional Status Date Assessment Result Facility 07-18-2024 Functional Status N/A [facility] 07-11-2024 Functional Status N/A [facility] 06-05-2024 Functional Status N/A [facility] 02-22-2024 Functional Status N/A [facility] 12-23-2023 Functional Status N/A [facility] 12-06-2023 Functional Status No [facility] 11-25-2023 Functional Status N/A [facility] 11-02-2023 Functional Status N/A [facility] 10-26-2023 Functional Status N/A [facility] 10-25-2023 Functional Status No [facility] 10-11-2023 Functional Status N/A [facility] 08-10-2023 Functional Status N/A [facility] 05-09-2023 Functional Status N/A [facility] 04-26-2023 Functional Status N/A [facility] 03-18-2023 Functional Status N/A [facility] 11-26-2022 Functional Status N/A [facility] 10-13-2022 Functional Status No [facility] 09-29-2022 Functional Status No [facility] 09-24-2022 Functional Status N/A [facility] 09-22-2022 Functional Status No [facility] 09-14-2022 Functional status Patient at Baseline [facility] Work Phone: 09-06-2022 Functional Status N/A [facility] 08-20-2022 Functional Status N/A [facility] 12-30-2021 Functional Status N/A [facility] Mental Status Date Assessment Result Facility 09-14-2022 Cognitive function Cognitive Sta tus Patient at Baseline [facility] Work Phone: Clinical Notes 07-02-2021 to 03-04-2025 Note Date & Type Note Facility 03-04-2025 Hospital Discharg e instructions Patient Education 03/04/2025 12:44:29 Asthma, Adult Asthma, Adult Asthma is a [...] breathing (shortness of breath). Excessive nighttime or die maker trim coughing. Chest tightness. Tiredness (fatigue) with minimal [...] condition. Follow these instructions at home: Take uazu-aye-ckbemtr and prescription medicines only as told by [...] provider. Document Revised: 04/07/2022 Document Reviewed: 03/29/2022 [employer] Patient Education 2023 [employer]. 03/04/2025 12:44:27 Exercising to Lose Weight Exercising to Lose [...] health care provider or diet and nutrition instructor (dietitian). This may include: ?Eating fewer calories. [...] provider. Document Revised: 08/16/2021 Document Reviewed: 08/16/2021 [employer] Patient Education 2023 [employer]. 03/04/2025 12:44:24 Type 2 Diabetes Mellitus, Self-Care, Adult Type [...] you how to adjust your dosage. Take taze-ais-vczbdln and prescription medicines only as told by [...] your health care provider once every year. [place] your teeth and gums two times a [...] meet with a certified diabetes care and education trainer? Where can I find a support group for people with diabetes? Where to find more information For help and guidance and for more information about diabetes, please visit: [place] [employer] (ADA): www.diabetes.org [place] [employer] Care and Education Specialists [...] provider. Document Revised: 11/18/2021 Document Reviewed: 11/18/2021 [employer] Patient Education 2023 [employer]. [facility] [place] 03-04-2025 Note Patient Education Endocrinology Type 2 Diabetes [...] how to adjust your dosage. ??? Take exsz-aib-rznlopn and prescription medicines only as told by [...] the week. ? (more content not included)... [facility] 02-04-2025 Hospital Discharg e instructions Patient Education [...] health care provider or diet and nutrition instructor (dietitian). This may include: ?Eating fewer calories. [...] provider. Document Revised: 08/16/2021 Document Reviewed: 08/16/2021 [employer] Patient Education 2023 [employer]. 02/04/2025 15:12:32 Type 2 Diabetes Mellitus, Self-Care, [...] you how to adjust your dosage. Take chot-ivk-ukfqeyt and prescription medicines only as told by [...] your health care provider once every year. [place] your teeth and gums two times a [...] meet with a certified diabetes care and education trainer? Where can I find a support group for people with diabetes? Where to find more information For help and guidance and for more information about diabetes, please visit: [place] [employer] (ADA): www.diabetes.org [place] Care and Education Specialists [...] provider. Document Revised: 11/18/2021 Document Reviewed: 11/18/2021 [employer] Patient Education 2023 [employer]. 02/04/2025 15:12:29 Asthma, Adult Asthma, Adult Asthma [...] breathing (shortness of breath). Excessive nighttime or die maker trim coughing. Chest tightness. Tiredness (fatigue) with minimal [...] condition. Follow these instructions at home: Take comc-wmb-fjtwcrw and prescription medicines only as told by [...] provider. Document Revised: 04/07/2022 Document Reviewed: 03/29/2022 [employer] Patient Education 2023 [employer]. Follow Up Care 01/02/2025 14:24:55 With:Yocasta SMITH, MASTER SCHEDULER-IRVING, Myron Hamilton Address: [address] [place] [id number] When:Within 1 Month(s) Comments:weight loss, initial 40 min [facility] [place] 02-04-2025 Note Patient Education [...] how to adjust your dosage. ??? Take tmqi-mpk-rmkwplc and prescription medicines only as told by [...] the week. ? (more content not included)... [facility] 01-24-2025 Note ED Patient Education Note [...] and water are not available, use hand director it project. ? Change your dressing as told by [...] scar, or cover it up. ??? Take eeyu-wsg-nuhjoer and prescription medicines only as told by [...] Reviewed: 10/26/2021 Else[employer] Patient Education ? 2023 [employer] Fall Prevention in the Home, Adult [...] Keep items that you use often in xoop-jv-miwvr places. Lower t (more content not included)... [facility] 01-03-2025 Note Microbiology PROCEDURE: Blood Culture Charcoal [R1] SOURCE: Blood BODY SITE: Arm L COLLECTED DATE/TIME: 12/27/2024 10:54 EDT RECEIVED DATE/TIME: 12/27/2024 11:21 EDT START DATE/TIME: 12/27/2024 11:21 EDT FREE TEXT SOURCE: Mendez Spain, Whit Simms M.D., Whit Thurman FINAL REPORTS Final Report [] Verified Date/Time: 01/03/2025 12:00 EDT No growth at 7 days. Performing Locations R1: This test was performed at: [facility], [address] [place] [address], [facility] , , [facility] Comment on above: Performed By: #### 1 [id number] #### [facility] [address] [place] [address] 01-03-2025 Note Microbiology PROCEDURE: Blood Culture Charcoal [R1] SOURCE: Blood BODY SITE: Arm R COLLECTED DATE/TIME: 12/27/2024 10:56 EDT RECEIVED DATE/TIME: 12/27/2024 11:21 EDT START DATE/TIME: 12/27/2024 11:21 EDT FREE TEXT SOURCE: ADAMARIS Simms M.D., Whit Simms M.D., Whit Thurman FINAL REPORTS Final Report [] Verified Date/Time: 01/03/2025 12:00 EDT No growth at 7 days. Performing Locations R1: This test was performed at: [facility], [address] [place] [address], [id number] , , [facility] Comment on above: Performed By: #### 1 [id number] #### [facility] [address] [place] [address] 01-02-2025 Hospital Discharg e instructions Patient Education [...] you how to adjust your dosage. Take oxuc-lcd-ezbqpma and prescription medicines only as told by [...] your health care provider once every year. [place] your teeth and gums two times a [...] meet with a certified diabetes care and education trainer? Where can I find a support group for people with diabetes? Where to find more information For help and guidance and for more information about diabetes, please visit: [place] [employer] (ADA): www.diabetes.org [place] Care and Education Specialists [...] provider. Document Revised: 11/18/2021 Document Reviewed: 11/18/2021 [employer] Patient Education 2023 [employer]. 01/02/2025 06:50:38 Sleep Apnea Sleep Apnea Sleep [...] your health care provider. General instructions Take pfch-ozd-apbwgoi and prescription medicines only as told by [...] provider. Document Revised: 01/27/2022 Document Reviewed: 05/29/2021 [employer] Patient Education 2023 [employer]. 01/02/2025 06:50:35 Heart Failure, Self-Care Heart Failure, [...] when you have heart failure Medicines Take aoyr-vce-ykbjfyg and prescription medicines only as told by [...] provider. Document Revised: 09/28/2022 Document Reviewed: 01/10/2021 [employer] Patient Education 2023 [employer]. 01/02/2025 06:50:34 Health Risks of Smoking Health [...] Department of Health and Human Services: www.smokefree.gov [place] [employer]: www.freedomfromsmoking.org [place] [employer]: www.heart.org Where to find more [...] provider. Document Revised: 06/22/2022 Document Reviewed: 06/22/2022 [employer] Patient Education 2023 [employer]. Follow Up Care 12/19/2024 13:33:44 With:Yocasta SMITH, MASTER SCHEDULER-CERTIFIED CODER, Myron Hamilton Address: [address] [place] [phone] When:Within 1 Month(s) [facility] [place] 01-02-2025 Note Patient Education Cardiovascular Heart Failure, [...] when you have heart failure Medicines Take eqvz-pyi-mzfffzi and prescription medicines only as told by [...] ? Avoid alcohol. (more content not included)... 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 as Scheduled January 01 Additional Instructions: Myron Rust Within 7 to 10 days [address] [place] [address] [phone] [facility] (1) Additional Instructions: Call for followup appointment Cellulitis, Adult Fluid Restriction Heart Failure Action Plan Form - Daily Weight Record Extracted from: Title:APSO Note Author:Abisai Kaur III, DO Date:12/28/24 Patient is a 64-year-old fem nazanin with past medical history of tobacco abuse, HTN, HFpEF, GERD, history of alcohol abuse, HLD, asthma, BRENDA, morbid obesity (BMI 58.6), bvp-yhrbfnh-nbltrvamu type 2 diabetes, marijuana use, COPD not on home oxygen, hypertension, history of volume overload especially with heavy alcohol use admitted to [facility] on 12/27/2024 for treatment of acute COPD [...] made to ensure accuracy. However inadvertent computerized concrete floor installer errors may be present. Extracted from: Title:Admission H & P Author:Law jt Kaur III, DO Date:12/27/24 Patient is a 64-year-old fem nazanin with past medical history of tobacco abuse, HTN, HFpEF, GERD, history of alcohol abuse, HLD, asthma, BRENDA, morbid obesity (BMI 58.6), brh-imhzspo-nyatljdsv type 2 diabetes, marijuana use, COPD not on home oxygen, hypertension, history of volume overload especially with heavy alcohol use admitted to [facility] on 12/27/2024 for treatment of acute COPD [...] Complete Initial Hospital Care/Day Moderate 55 Minutes [id number] Notify Provider Vital Signs Notify Provider Vital [...] made to ensure accuracy. However inadvertent computerized concrete floor installer errors may be present. Addendum by Abisai [...] Date:01/01/2025 02:00:00 PM Scheduled Provider:Rick Hernandez PA-C [facility] [place] Appoint[facility] Type:Cardiology Follow Up () Appointment Date:01/02/2025 01:40:00 PM Scheduled Provider:Yocasta SMITH, MASTER SCHEDULER-IRVING, Myron Hamilton Location:[facility] [place] Appointment Type: Open Appointment Date:01/07/2025 12:30:00 PM Scheduled Provider: Location:.CARDIO Appointment Type:PUL Pulmonary Function Test () Future Scheduled Tests Laboratory* Microalbumin Level Urine 12/19/24 * Urine Microalbumin/Creatinine Ratio 12/19/24 [facility] 06-28-2025 Hospital Discharge instructions Patient Education [...] Follow these instructions at home: Medicines Take fauu-xut-xenolba and prescription medicines only as told by [...] provider. Document Revised: 02/15/2023 Document Reviewed: 02/15/2023 Mix[employer] Patient Education 2023 [employer]. 12/29/2024 11:04:37 Fluid Restriction Fluid Restriction Fluid [...] provider. Document Revised: 04/07/2021 Document Reviewed: 04/07/2021 Mixify Patient Education 2023 [employer]. 12/29/2024 11:04:35 Heart Failure Action Plan Heart [...] symptoms. Follow these instructions at home: Take eock-vpi-divarqp and prescription medicines only as told by [...] diet. Work with a diet and nutrition instructor (dietitian) to create an eatingplan that is best for you. Keep all follow-up visits. This is important. Where to find more information [place] Heart Association: Summary A heart failure action [...] provider. Document Revised: 09/28/2022 Document Reviewed: 02/02/2021 Mixify Patient Education 2023 [employer]. 12/29/2024 11:04:33 Form - Daily Weight [...] provider. Document Revised: 02/23/2022 Document Reviewed: 02/23/2022 Elsevier Patient Education 2023 Else[employer] Inc. 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 as Scheduled January 01 Address:Unknown When: Unknown With:Myron Rust Address: [place] [address] [phone] Business (1) When:7 to 10 days Comments:Call for followup appointment [facility] 06-28-2025 NoteDischarge Summary Admission and Discharge [...] HLD, asthma, BRENDA, morbid obesity (BMI 58.6), iii-yljktpf-puowngvqo type 2 diabetes, marijuana use, COPD not on home oxygen, hypertension, history of volume overload especially with heavy alcohol use admitted to [facility] on 12/27/2024 for treatment of right lower [...] 250 mg= 1 tab(s) (more content not included)...[facility]:Result Comment: Electronically Signed By: Abisai Kaur III, DO\.br\Date and Time Signed: 12/29/24 11:11 EDT 12-28-2024 NoteProgress Note-Physician Assessment/Plan Patient is a 64-year-old female with past medical history of tobacco abuse, HTN, HFpEF, GERD, history of alcohol abuse, HLD, asthma, BRENDA, morbid obesity (BMI 58.6), ywk-ywujjes-smmqmzuem type 2 diabetes, marijuana use, COPD not on home oxygen, hypertension, history of volume overload especially with heavy alcohol use admitted to [facility] on 12/27/2024 for treatment of acute COPD [...] made to ensure accuracy. However inadvertent computerized concrete floor installer errors may be present. Subjective Patient seen [...] Intake mL 125 4,209 (more content not included)...[facility] Hospital[facility] on above: Result Comment: Electronically Signed By: Abisai Kaur III, DO\Date and Time Signed: 12/28/24 14:25 [id number] NoteHistory and Physical Basic Information Admit Date/Time:12/27/2024 13:58 Chief Complaint Shortness od breath, edema History of Present Illness Patient is a 64-year-old female with past medical history of tobacco abuse, HTN, HFpEF, GERD, history of alcohol abuse, HLD, asthma, BRENDA, morbid obesity (BMI 58.6), lfz-spnfylv-bsyjbhbph type 2 diabetes, marijuana use, COPD not on home oxygen, hypertension, history of volume overload especially with heavy alcohol use who presents to [facility] on 12/27/2024 with chief complaint of increasinglower [...] Lymph Auto: 12.1 % Low (12/27/24 10:54:00) Canyon Auto: 5.3 % (12/27/24 10:54:00) Eos Auto: 1 % (12/27/24 10:54:00) Basophil Auto: 0.8 % (12/27/24 10:54:00) Neutro Absolute: 5.8 E9/L (12/27/24 10:54:00) Lymph Absolute: 0.9 E9/L Low (12/27/24 10:54:00) Canyon Absolute: 0.4 E9/L (12/27/24 10:54:00) Eos Absolute: [...] 87 mg/dL (12/27/24 16:55:00) POC Device SN: [id number] (12/27/24 16:55:00) POC User ID: [id number] (12/27/24 16:55:00) POC Username: MIKEY CADET (12/27/24 16:55:00) Assessment/Plan Patient is a 64-year-old female with past medical history of tobacco abuse, HTN, HFpEF, GERD, history of alcohol abuse, HLD, asthma, BRENDA, morbid obesity (BMI 58.6), zim-vzlvxqv-vyepgioyc type 2 diabetes, marijuana use, COPD not on home oxygen, hypertension, history of volume overload especially with heavy alcohol use admitted to [facility] on 12/27/2024 for treatment of acute COPD exacerbation and acute heart failure exacerbation. 1. Acute on chronic heart failure (more content not included)...[facility] HospitalComment on above:Result Comment: Electronically Signed By: Abisai Kaur III, DO\.br\Date and Time Signed: 12/28/24 14:21 [id number] Note Echocardiology Procedure Exam Date/Time Accession # Ordering Echo Transthoracic 12/28/2024 10:03 EDT [id number] Abisai Kaur III, DO CPT code 78727 [id number] Reason for Exam (Echo Transthoracic Complete) Congestive Heart Failure Report [address] [address] Adult Echocardiogram Report Name: CARMEN BLEDSOE Study Date: 12/28/2024 09:14 AM BP: 131/72 mmHg Patient Location: [address] [place] [address] HR: 73 : 1960 Gender: Female Height: 65.5 in Age: 64 yrs Ethnicity: [facility] Weight: 353 lb Reason For Study: Congestive Heart Failure BSA: 2.5 m2 History: HTN,Diabetes,BRENDA, Asthma, Smoker Alcohol abuse- remission Ordering Physician: Shanika Performed By: Annabel Oconnell, [facility] Interpretation Summary The left ventricle is normal [...] Winter Coe MD Transcribed by: RUBEN Technologist[facility] Note History and Physical Basic Information Admit Date/Time:12/27/2024 13:58 Chief Complaint Shortness od breath, edema History of Present Illness Patient is a 64-year-old female with past medical history of tobacco abuse, HTN, HFpEF, GERD, history of alcohol abuse, HLD, asthma, BRENDA, morbid obesity (BMI 58.6), dco-vqvteww-rjggaarrb type 2 diabetes, marijuana use, COPD not on home oxygen, hypertension, history of volume overload especially with heavy alcohol use who presents to [facility] on 12/27/2024 with chief complaint of increasinglower [...] Lymph Auto: 12.1 % Low (12/27/24 10:54:00) Canyon Auto: 5.3 % (12/27/24 10:54:00) Eos Auto: 1 % (12/27/24 10:54:00) Basophil Auto: 0.8 % (12/27/24 10:54:00) Neutro Absolute: 5.8 E9/L (12/27/24 10:54:00) Lymph Absolute: 0.9 E9/L Low (12/27/24 10:54:00) Canyon Absolute: 0.4 E9/L (12/27/24 10:54:00) Eos Absolute: [...] 87 mg/dL (12/27/24 16:55:00) POC Device SN: [id number] (12/27/24 16:55:00) POC User ID: [id number] (12/27/24 16:55:00) POC Username: MIKEY CADET (12/27/24 16:55:00) Assessment/Plan Patient is a 64-year-old female with past medical history of tobacco abuse, HTN, HFpEF, GERD, history of alcohol abuse, HLD, asthma, BRENDA, morbid obesity (BMI 58.6), ola-jxjtwkw-sswinrjus type 2 diabetes, marijuana use, COPD not on home oxygen, hypertension, history of volume overload especially with heavy alcohol use admitted to [facility] on 12/27/2024 for treatment of acute COPD exacerbation and acute heart failure exacerbation. 1. Acute on chronic heart failure (more content not included)...[facility] HospitalComment on above:Result Comment: Electronically Signed By: Abisai Kaur III, DO.br\Date and Time Signed: 12/27/24 17:49 [id number] Hospital Discharge instructions Patient Education 12/19/2024 06:38:27 [...] treat it right away. Always have a 78-yipfunoph-wwilyb carbohydrate snack with you to treat low [...] you how to adjust your dosage. Take jrcb-hjh-oxnocna and prescription medicines only as told by [...] your health care provider once every year. [place] your teeth and gums two times a [...] meet with a certified diabetes care and education trainer? Where can I find a support group for people with diabetes? Where to find more information For help and guidance and for more information about diabetes, please visit: [place] Diabetes Association (ADA): www.diabetes.org [place] Association of Diabetes Care and Education Specialists [...] provider. Document Revised: 11/18/2021 Document Reviewed: 11/18/2021 Mixify Patient Education 2023 [employer]. 12/19/2024 06:38:26 Hypertension, Adult Hypertension, Adult High [...] follow-up visits. This is important. Medicines Take auki-aue-mclueki and prescription medicines only as told by [...] provider. Document Revised: 04/27/2022 Document Reviewed: 04/27/2022 Mixify Patient Education 2023 [employer]. 12/19/2024 06:38:25 Heart Failure, Self-Care Heart Failure, [...] when you have heart failure Medicines Take ztzp-lmx-jlshvie and prescription medicines only as told by [...] provider. Document Revised: 09/28/2022 Document Reviewed: 01/10/2021 Mixify Patient Education 2023 [employer]. Follow Up Care 09/12/2024 13:36:39 With:Yocasta SMITH, MASTER SCHEDULER-Myron VILLATORO Address: [address] [place] [phone] When:Within 2 Week(s) Comments:chronic care [facility] 06-18-2025 NotePatient Education Cardiovascular Hypertension, Adult High [...] one 12 oz bottle (more content not included)...[facility] Hospital Discharge instructions Patient Education 11/27/2024 [...] to any changes in your symptoms. Take fxat-dit-ujyxbol and prescription medicines only as told by [...] provider. Document Revised: 02/06/2022 Document Reviewed: 02/06/2022 Mixify Patient Education 2023 [employer]. 11/27/2024 17:34:19 Type 2 Diabetes Mellitus, Self-Care, [...] treat it right away. Always have a 51-ymwcflycc-wxlxpk carbohydrate snack with you to treat low [...] you how to adjust your dosage. Take xgno-idk-erqfajp and prescription medicines only as told by [...] your health care provider once every year. [place] your teeth and gums two times a [...] meet with a certified diabetes care and education trainer? Where can I find a support group for people with diabetes? Where to find more information For help and guidance and for more information about diabetes, please visit: [place] Diabetes Association (ADA): www.diabetes.org [place]ese Association of Diabetes Care and Education Specialists [...] provider. Document Revised: 11/18/2021 Document Reviewed: 11/18/2021 Mixify Patient Education 2023 [employer]. 11/26/2024 10:15:58 Peripheral Edema Peripheral Edema Peripheral [...] by your health care provider. Medicines Take yjzr-noj-rwpcefl and prescription medicines only as told by [...] provider. Document Revised: 02/22/2022 Document Reviewed: 02/22/2022 Mixify Patient Education 2023 [employer]. 11/26/2024 10:15:55 Health Risks of Smoking Health [...] Department of Health and Human Services: www.smokefree.gov [place] Lung Association: www.freedomfromsmoking.org [place] Heart Association: www.heart.org Where to find more [...] provider. Document Revised: 06/22/2022 Document Reviewed: 06/22/2022 Mixify Patient Education 2023 [employer]. Follow Up Care 11/12/2024 15:55:00 With:Yocasta SMITH, MASTER SCHEDULER-CERTIFIED CODER, Myron Hamilton Address: [address] [place] [phone] When: only if needed [facility] [place] 05-27-2025 NotePatient Education Endocrinology Type 2 Diabetes [...] treat it right away. Always have a 74-yiwuyhise-pnxszm carbohydrate snack with you to treat low [...] how to adjust your dosage. ??? Take bpzw-gjv-nzrdtia and prescription medicines only as told by [...] of the week. ? (more content not included)...[facility] History of Present illness Narrative* Susu Moody - 11/07/2024 10:00 AM EDT BRENDA on CPAP machine * S Dylon Dean MD - 11/07/2024 10:00 AM EDT BARIATRIC SURGERY NEW PATIENT CONSULTATION HISTORY AND PHYSICAL Date: 11/07/2024 Time: 10:47 AM Name: Carmen Bledsoe PCP: Myron Rust Insurance: Payor: [employer] MEDICAID COMMUNITY PLAN / Plan: [facility] MEDICAID COMMUNITY PLAN / Product Type: *No [...] Health Provider for the 'psych eval - Lacrosse Coach - Will obtain old medical records to [...] Minimally Invasive General Surgery [facility] NotePatient Education Health Risks of Smoking [...] of Health and Human Services: www.smokefree.gov ??? [place] Lung Association: www.freedomfromsmoking.org ??? [place] Heart Association: www.heart.org Where to find more [...] provider. Document Revised: 06/22/2022 Document Reviewed: 06/22/2022 Elsevier Patient Education ? 2023 [employer]. Cardiovascular Hypertension, Adult High blood pressure (hypertension) [...] in high bloodpressure. What (more content not included)...[facility] Hospital Discharge instructions Patient Education 08/29/2024 [...] treat it right away. Always have a 66-mehwttugs-kzkaek carbohydrate snack with you to treat low [...] you how to adjust your dosage. Take fbup-zrr-ifxybhi and prescription medicines only as told by [...] your health care provider once every year. [place] your teeth and gums two times a [...] meet with a certified diabetes care and education trainer? Where can I find a support group for people with diabetes? Where to find more information For help and guidance and for more information about diabetes, please visit: [place] Diabetes Association (ADA): www.diabetes.org [place] Association of Diabetes Care and Education Specialists [...] provider. Document Revised: 11/18/2021 Document Reviewed: 11/18/2021 Mixify Patient Education 2023 [employer]. 08/29/2024 08:03:26 Hypertension, Adult Hypertension, Adult High [...] follow-up visits. This is important. Medicines Take jooo-oud-xfdlbqm and prescription medicines only as told by [...] provider. Document Revised: 04/27/2022 Document Reviewed: 04/27/2022 Mixify Patient Education 2023 [employer]. 08/29/2024 08:03:25 High Cholesterol High Cholesterol High [...] under the skin (xanthomas). A white or jacksno ring around the black center (pupil) of [...] ask your health careprovider. General instructions Take uhth-bkr-rszmmhh and prescription medicines only as told by your health care provider. Keep all follow-up visits. This is important. Where to find more information [place] Heart Association: www.heart.org National Heart, Lung, and Blood [place]: www.nhlbi.nih.gov Contact a health care provider if: [...] provider. Document Revised: 01/21/2023 Document Reviewed: 08/24/2021 Mixify Patient Education 2023 [employer]. Follow Up Care 02/22/2024 14:05:28 With:Yocasta SMITH, MASTER SCHEDULER-Myron VILLATORO Address: [address] [place] [phone] When:Within 6 Month(s) Comments:chronic care [facility] [place] 02-26-2025 NotePatient Education Cardiovascular [...] one 12 oz bottle (more content not included)...[facility] Hospital Discharge instructions Patient Education 07/18/2024 [...] for Disease Control and Prevention: cdc.gov National [place] on Alcohol Abuse and Alcoholism: niaaa.nih.gov Alcoholics [...] the National Suicide Prevention Lifeline at or 274. This is open 24 hours a day. Text the Crisis Text Line at 806875. Summary Alcohol misuse and dependence can have [...] provider. Document Revised: 08/25/2022 Document Reviewed: 08/25/2022 Mixify Patient Education 2023 [employer]. 07/18/2024 12:21:13 Type 2 Diabetes Mellitus, Self-Care, [...] treat it right away. Always have a 31-rfqbuafsq-hrrypv carbohydrate snack with you to treat low [...] you how to adjust your dosage. Take mych-ifw-bpnhcwv and prescription medicines only as told by [...] your health care provider once every year. [place] your teeth and gums two times a [...] meet with a certified diabetes care and education trainer? Where can I find a support group for people with diabetes? Where to find more information For help and guidance and for more information about diabetes, please visit: [place] Diabetes Association (ADA): www.diabetes.org [place] Association of Diabetes Care and Education Specialists [...] provider. Document Revised: 11/18/2021 Document Reviewed: 11/18/2021 Mixify Patient Education 2023 [employer]. Follow Up Care 07/11/2024 12:07:33 With:Yocasta SMITH, MASTER SCHEDULER-CERTIFIED CODER, Myron Hamilton Address: [address] [place] [phone] When: only if needed Comments:keep next month appt [facility] [place] 01-15-2025 NotePatient Education Endocrinology [...] treat it right away. Always have a 04-ydrkskbln-mdujir carbohydrate snack with you to treat low [...] how to adjust your dosage. ??? Take cogw-mri-mvkbrxq and prescription medicines only as told by [...] of the week. ? (more content not included)...[facility] NoteNurse Consultation Note Reason for Visit [...] virus vaccine, inactivated 05/11/2022 Recorded SARS-CoV-2 (COVID-19) [id number] 05/11/2022 Recorded SARSCoV2 mRNA(tajrobbli-xqyk-wcajen) vac 12/15/2021 Recorded SARS-CoV-2 (COVID-19) mRNA BNT-162b2 [...] vaccine 12/16/2017 Recorded diphtheria/pertussis, acel/tetanus adult 10/27/2014 [facility]ed[facility]-2025 NotePatient Education Infectious Disease Diarrhea, Adult [...] oral rehydration solution (ORS). This is an khne-zrw-ybfvpbr medicine that helps returnyour body to its [...] drinks. ? Avoid alcohol. ??? Eat bland, esrm-qh-cmgnjh foods in small amounts as you are able. These foods include bananas, applesauce, rice, lean meats, toast, and crackers. ??? Avoid spicy or fatty foods. Medicines ??? Take wwyd-fcc-rbdbfgs and prescription medicines only as told by your health care provider. ??? If you were prescribed antibiotics, take them as told by your health care provider. Do not stopusing the antibiotic even if you start to feel better. General instructions ??? Wash your hands often using soap and water for at least 20 seconds. If soap and water are not available, use hand director it project. Others in the household should wash their [...] provider. Document Revised: 12/07/2022 Document Reviewed: 12/07/2022 Mixify Patient Education ? 2023 [employer]. Mental and Behavioral Health Alcohol Misuse and [...] friends and family. ??? (more content not included)...[facility] Hospital Discharge instructions Follow Up Care 07/05/2024 08:14:42 With:nurse visit Address: When:2 to 3 days Comments:fasting labs With:Yocasta SMITH, MASTER SCHEDULER-IRVING, Myron Hamilton Address: [address] [place] [phone] When:Within 1 Week(s) Comments:chronic care [facility] [place] 08-21-2024 Hospital Discharge instructions [...] treat it right away. Always have a 01-ehtkeaoxj-oqwyde carbohydrate snack with you to treat low [...] you how to adjust your dosage. Take ilnj-vva-lvnhuhi and prescription medicines only as told by [...] your health care provider once every year. [place] your teeth and gums two times a [...] meet with a certified diabetes care and education trainer? Where can I find a support group for people with diabetes? Where to find more information For help and guidance and for more information about diabetes, please visit: [place] Diabetes Association (ADA): www.diabetes.org [place] Association of Diabetes Care and Education Specialists [...] provider. Document Revised: 11/18/2021 Document Reviewed: 11/18/2021 Mixify Patient Education 2022 [employer]. 02/22/2024 08:31:36 Mediterranean Diet Mediterranean Diet A [...] in common dishes like chili or lasagna. [place] with different cooking methods. Try roasting, broiling, [...] available, such as: ?Vegetable sticks with hummus. ?[place]izen [place] yogurt. ?Fruit and nut trail mix. Eat [...] Quinoa. Meats and other proteins Beans. Almonds. [place] seeds. [place] nuts. Peanuts. Cod. Redgranite. Scallops. Shrimp. Tuna. Tilapia. Clams. Oysters. Eggs. Poultry without skin. Dairy Low-fat milk. Cheese. Citizen [place] yogurt. Fats and oils Extra-virgin olive oil. Avocado oil. Grapeseed oil. Beverages Water. Red wine. Herbal tea. Sweets and desserts Citizen [place] yogurt with honey. Baked apples. Poached pears. [place] mix. Seasonings and condiments Basil. Cilantro. Coriander. [...] Fruit canned in syrup. Vegetables Deep-fried potatoes (moldovan fries). Grains Prepackaged pasta or rice dishes. Prepackaged cereal with added sugar. Prepackaged snacks with added sugar. Meats and other proteins Beef. Pork. [place]artuhr. Poultry with skin. Hot dogs. Manjarrez. Dairy [...] provider. Document Revised: 07/25/2020 Document Reviewed: 05/22/2020 Mixify Patient Education 2022 [employer]. 02/22/2024 08:31:35 Hypertension, Adult Hypertension, Adult High [...] follow-up visits. This is important. Medicines Take tibk-hpt-egkvttk and prescription medicines only as told by [...] provider. Document Revised: 04/27/2022 Document Reviewed: 04/27/2022 Mixify Patient Education 2022 [employer]. 02/22/2024 08:31:33 Health Risks of Smoking Health [...] Department of Health and Human Services: www.smokefree.gov [place] Lung Association: www.freedomfromsmoking.org [place] Heart Association: www.heart.org Where to find more [...] provider. Document Revised: 06/22/2022 Document Reviewed: 06/22/2022 Mix[employer] Patient Education 2022 [employer]. Follow Up Care 11/25/2023 14:56:18 With:Yocasta SMITH, MASTER SCHEDULER-CERTIFIED CODER, Myron Hamilton Address: [address] [place] [phone] When:Within 6 Month(s) Comments:chronic care [facility] [place] 08-21-2024 NotePatient Education Cardiovascular Hypertension, Adult High [...] wine (148 mL), (more content not included)...[place] [facility]06-24-2024 Note [id number] Francisco [facility] 12-23-2023 Hospital Discharge instructions Patient Education 12/23/2023 13:17:05 Colonoscopy, Care After Surgery [place] (CUSTOM) Colonoscopy Care After Surgery Please read the instructions outlined below and refer to this sheet in the next few weeks. These discharge instructions provide you with general information on caring for yourself after [facility] Your doctor may also give you specific [...] Care 11/02/2023 11:19:36 With:Marjan SAMPSON, KAMALJIT Rosa, [facility] Address: [address] [place] [address], [address] [phone] When: Unknown Comments:Call Office in 2 weeks for results or follow-up Appt. [facility]06-21-2024 Evaluation + Plan noteExtracted from: Title:ANES Post-operative Note---General Author: Zaid Benz MD Date:12/23/23 Plan Transfer/Discharge: Transfer/Discharge Discharge when meets criteria ( To home ). Extracted from: Title:ANES Pre-operative Note 2022 Author:Zaid Rojas Date:12/23/23 Plan [place] [employer] (ASA) physical status classification: Class III. Anesthetic Preoperative Plan: Anesthesia General. Future Appointments Appointment Date:01/27/2024 10:00:00 AM Scheduled Provider:Walker Phillip MD [place] Type[facility] Follow Up Appointment Date:02/22/2024 01:20:00 PM Scheduled Provider:Yocasta SMITH, MASTER SCHEDULER-CERTIFIED CODER, Myron Hamilton Location:[facility] [place] Appointment Type: Open Appointment Date:06/05/2024 01:00:00 PM Scheduled Provider:Alirio Ramirez MD Location[facility] [place] Appointment Type:Cardiology Follow Up (FT) Future Scheduled Tests Laboratory* Hep B Core Ab, Tot 11/02/23 * Lclhd-8-Akuoytvbfvi 11/02/23 * B-Type Natriuretic Peptide 10/25/23 * [...] * Iron Level 11/02/23 * PT 11/02/23 [facility]05-23-2024 Hospital Discharge instructions Patient Education 11/24/2023 [...] asked to follow these instructions. Medicines Take yjda-dhl-twtgueb and prescription medicines only as told by your health care provider. Do not start taking any new medicine unless your health care provider has approved. These include pydi-uyf-iulwvnj medicines, vitamins, herbs, and supplements. Some of [...] provider. Document Revised: 05/19/2022 Document Reviewed: 05/19/2022 Mixify Patient Education 2022 [employer]. 11/24/2023 19:09:12 Hepatomegaly Hepatomegaly Hepatomegaly is when [...] asked to follow these instructions. Medicines Take nuif-rfy-ounuszy and prescription medicines only as told by your health care provider. Do not start taking any new medicine unless your health care provider has approved. These include huon-lzo-ghvrlyl medicines, vitamins, herbs, and supplements. Some of [...] provider. Document Revised: 05/19/2022 Document Reviewed: 05/19/2022 Mixify Patient Education 2022 [employer]. 11/24/2023 19:09:07 Type 2 Diabetes Mellitus, Self-Care, [...] treat it right away. Always have a 99-iimfrdzlm-loqzow carbohydrate snack with you to treat low [...] you how to adjust your dosage. Take blzu-vis-ipbobfh and prescription medicines only as told by [...] your health care provider once every year. [place] your teeth and gums two times a [...] meet with a certified diabetes care and education trainer? Where can I find a support group for people with diabetes? Where to find more information For help and guidance and for more information about diabetes, please visit: [place] Diabetes Association (ADA): www.diabetes.org [place] Association of Diabetes Care and Education Specialists [...] provider. Document Revised: 11/18/2021 Document Reviewed: 11/18/2021 Mixify Patient Education 2022 [employer]. 11/24/2023 19:09:06 Mediterranean Diet Mediterranean Diet A [...] in common dishes like chili or lasagna. [place] with different cooking methods. Try roasting, broiling, [...] available, such as: ?Vegetable sticks with hummus. ?[place] yogurt. ?Fruit and nut trail mix. Eat [...] Quinoa. Meats and other proteins Beans. Almonds. [place] seeds. [place] nuts. Peanuts. Cod. [place]gran[place]. Scallops. Shrimp. Tuna. Tilapia. Clams. Oysters. Eggs. Poultry without skin. Dairy Low-fat milk. Cheese. [place] yogurt. Fats and oils Extra-virgin olive oil. Avocado oil. Grapeseed oil. Beverages Water. Red wine. Herbal tea. Sweets and desserts [place] yogurt with honey. Baked apples. Poached pears. [place] mix. Seasonings and condiments Basil. Cilantro. Coriander. [...] Fruit canned in syrup. Vegetables Deep-fried potatoes (moldovan fries). Grains Prepackaged pasta or rice dishes. [...] provider. Document Revised: 07/25/2020 Document Reviewed: 05/22/2020 Mixify Patient Education 2022 [employer]. Follow Up Care 10/26/2023 14:06:56 With:Yocasta SMITH, MASTER SCHEDULER-CERTIFIED CODERMyron Address: [address] [place], [place] [id number] When:Within 3 Month(s) Comments:chronic care [facility] [place] 05-09-2024 NoteEchocardiology Procedure Exam Date/Time Accession # Ordering Dr. Ferrer Transthoracic 11/08/2023 15:28 EDT [id number] Adam SAMPSON, Alirio Hooper CPT code [id number] Reason for Exam (Echo Transthoracic Complete) I50.30;Other (please specify) [place] [address] Adult Echocardiogram Report Name: CARMEN BLEDSOE Study Date: 11/08/2023 02:50 PM BP: 128/85 mmHg Patient Location: [id number] [facility] [place]: 66 : 1960 Gender: Female Height: 6 in Age: 62 yrs Ethnicity: [facility] Weight: 328 lb Reason For Study: CHF BSA: 0.43 m2 History: High Cholesterol,HTN,Smoker-Yes,Morbid obesity Ordering Physician: Adam^Alirio^Sandie Referring Physician: Alirio Ramirez Performed By: Philomena Gusman, RDMS, RVT Interpretation Summary Grossly normal LV and [...] Signed by: Alirio Ramirez MD Transcribed by: [facility] Technologist: [facility]04-24-2024 Hospital Discharge instructions Patient Education 10/26/2023 08:53:49 [...] by your health care provider. Medicines Take iwzd-ccc-vrtydab and prescription medicines only as told by [...] provider. Document Revised: 02/22/2022 Document Reviewed: 02/22/2022 Mix[employer] Patient Education 2022 [employer]. 10/26/2023 08:53:45 Heart Failure, Self-Care Heart Failure, [...] when you have heart failure Medicines Take krei-eje-olofazu and prescription medicines only as told by [...] provider. Document Revised: 09/28/2022 Document Reviewed: 01/10/2021 Radha Patient Education 2022 [employer]. 10/26/2023 08:53:36 DASH Eating Plan DASH Eating [...] Dairy Whole or 2% milk, cream, and ervq-fvw-embb. Whole or full-fat cream cheese. Whole-fat or [...] more information National Heart, Lung, and Blood [place]: www.nhlbi.nih.gov [place] Heart Association: www.heart.org Academy of Nutrition and [...] provider. Document Revised: 05/23/2020 Document Reviewed: 05/23/2020 Elsevier Patient Education 2022 [employer]. Follow Up Care 10/11/2023 15:08:26 With:Yocasta SMITH, MASTER SCHEDULER-Myron VILLATORO Address: [address] [place] [phone] When:Within 1 Month(s) [facility] [place] 04-08-2024 Hospital Discharge [...] treat it right away. Always have a 66-ydyvezypk-fjvruy carbohydrate snack with you to treat low [...] you how to adjust your dosage. Take cixt-uoc-wnllsww and prescription medicines only as told by [...] your health care provider once every year. [place] your teeth and gums two times a [...] meet with a certified diabetes care and education trainer? Where can I find a support group for people with diabetes? Where to find more information For help and guidance and for more information about diabetes, please visit: [place] Diabetes Association (ADA): www.diabetes.org [place] Association of Diabetes Care and Education Specialists [...] provider. Document Revised: 11/18/2021 Document Reviewed: 11/18/2021 Mix[employer] Patient Education 2022 [employer]. 10/10/2023 07:17:21 Heart Failure Exacerbation Heart Failure [...] Follow these instructions at home: Medicines Take pihd-zgl-ncufmiw and prescription medicines only as told by your health care provider. Do not stop taking your medicines or change the amount you take. If you are having problems or sideeffects from your medicines, talk to your health care provider. If you are having difficulty paying for your medicines, contact a transition social worker or your clinic. There are [...] provider. Document Revised: 09/28/2022 Document Reviewed: 01/10/2021 Mix[employer] Patient Education 2022 [employer]. Follow Up Care 10/07/2023 10:35:27 With:Yocasta SMITH, MASTER SCHEDULER-CERTIFIED CODER, Myron Hamiltno Address: [address] [place] [phone] When:Within 2 Week(s) Comments:chronic care [facility] [place] 02-07-2024 Evaluation + Plan note Diagnostic Tests Pending * CBC w/ Auto Diff 08/10/23 * Comprehensive Metabolic Panel 08/10/23 * HgbA1c 08/10/23 * Lipid Panel 08/10/23 * Microalbumin Level Urine 08/10/23 * D-Dimer 08/10/23 Future Scheduled Tests Laboratory* Vitamin D 25 Hydroxy 10/13/22 * Creatine Kinase 10/13/22 Radiology* US LE Venous Duplex Insufficiency Bilat [facility] Discharge instructions Patient Education 08/09/2023 [...] pray, or go to a place of evangelical. Do some deep breathing. To do this, [...] sugars, or salt (sodium). General instructions Take jfbv-ynw-ttkbdih and prescription medicines only as told by [...] (ADAA): www.adaa.org Mental Health [place]: www.mentalhealthamerica.net National [place] on Mental Illness: www.param.org Contact a health [...] department or: Call your local emergency services (701 in the [place] Call a suicide crisis helpline, such as the National Suicide Prevention Lifeline at or 048 in the [place] This is open 24 hours a day in the [place] Text the Crisis Text Line at 364092 (in the [place] Summary If you are [...] provider. Document Revised: 01/13/2022 Document Reviewed: 04/30/2020 Mixify Patient Education 2022 [employer]. 08/09/2023 20:20:14 Hypertension, Adult Hypertension, Adult High [...] follow-up visits. This is important. Medicines Take yrfh-rip-hxjnpzu and prescription medicines only as told by [...] provider. Document Revised: 04/27/2022 Document Reviewed: 04/27/2022 Mixify Patient Education 2022 [employer]. 08/09/2023 20:20:10 Type 2 Diabetes Mellitus, Self-Care, [...] treat it right away. Always have a 63-edeqiltnm-oluhac carbohydrate snack with you to treat low [...] you how to adjust your dosage. Take mazp-ujn-hgtwzso and prescription medicines only as told by [...] your health care provider once every year. [place] your teeth and gums two times a [...] meet with a certified diabetes care and education trainer? Where can I find a support group for people with diabetes? Where to find more information For help and guidance and for more information about diabetes, please visit: [place] Diabetes Association (ADA): www.diabetes.org [place] Association of Diabetes Care and Education Specialists [...] provider. Document Revised: 11/18/2021 Document Reviewed: 11/18/2021 Mixify Patient Education 2022 [employer]. 08/09/2023 20:20:09 Health Risks of Smoking Health [...] Department of Health and Human Services: www.smokefree.gov [place] Lung Association: www.freedomfromsmoking.org [place] Heart Association: www.heart.org Where to find more [...] provider. Document Revised: 06/22/2022 Document Reviewed: 06/22/2022 Mixify Patient Education 2022 [employer]. 08/09/2023 20:20:08 DASH Eating Plan DASH Eating [...] Dairy Whole or 2% milk, cream, and fmjp-sdr-pjwh. Whole or full-fat cream cheese. Whole-fat or [...] more information National Heart, Lung, and Blood [place]: www.nhlbi.nih.gov [place] Heart Association: www.heart.org Academy of Nutrition and [...] provider. Document Revised: 05/23/2020 Document Reviewed: 05/23/2020 Mixify Patient Education 2022 [employer]. Follow Up Care 11/26/2022 13:53:51 With:Yocasta SMITH, MASTER SCHEDULER-Myron VILLATORO. Address: [address] [place] [phone] When:Within 6 Month(s) Comments:chronic care [facility] [place] 01-18-2024 History of Present illness Narrative* Arlene Zuñiga - 07/21/2023 10:30 AM EST Occupational Therapy [facility] Date: 07/21/2023 Patient Name: Carmen Bledsoe : 1960 Pt Cancelled Appt due to left voice mail with no reason for cancel. Arlene Zuñiga Date: 07/21/2023 [facility] of Present illness Narrative* Lisseth Luu - 07/20/2023 3:00 PM EST Physical Therapy [facility] Date: 07/20/2023 Patient Name: Carmen Bledsoe DOB: 1960 Patient called to cancel Appt., did not state a reason for cancellation. Lisseth Kasiater Date: 07/20/2023 [facility] History of Present illness Narrative* Lisseth Luu - 07/14/2023 10:30 AM EST Physical [facility] Date: 07/14/2023 Patient Name: Carmen Bledsoe DOB: 1960 Patient called to cancel, did not give a reason. She said she will be at her next scheduled appointment on 07/19/23. Lisseth Bell Date: 07/14/2023 [facility] History of Present illness Narrative* Arlene Zuñiga - 07/08/2023 1:30 PM EST Occupational Therapy [facility] Date: 07/08/2023 Patient Name: Carmen Bledsoe : 1960 Pt Cancelled Appt due to no reason for cancel. Arlene Zuñiga Date: 07/08/2023 [facility] History of Present illness Narrative* Shock, Fariba S - 07/06/2023 10:30 AM EST Physical [facility] Date: 07/06/2023 Patient Name: Carmen Bledsoe : 1960 Patient is not able to a make this appointment, she rescheduled for tomorrow. Fariba Sepulveda Shock Date: 07/06/2023 [facility] Hospital Discharge instructions Patient Education 05/09/2023 22:10:36 [...] back becomes more flexible: 1.Get into a ckiwi-rqh-amcmk position on a firm bed or the [...] provider. Document Revised: 12/15/2021 Document Reviewed: 09/02/2021 Elsevier Patient Education 2022 [employer]. Follow Up Care 05/06/2023 08:05:37 With:Ansley Carrero PA-C Address: [address] [place] [phone] When: only if needed Comments:Only if needed [facility] 10-23-2023 Hospital Discharge instructions Patient Education 04/25/2023 [...] Follow these instructions at home: Medicines Take mzis-mbg-drcispc and prescription medicines only as told by your health care provider. Ask your health care provider if the medicine prescribed to you: ?Requires you to avoid driving or using heavy machinery. ?Can cause constipation. You may need to take these actions to prevent or treat constipation: ?Drink enough fluid to keep your urine pale yellow. ?Take nfmh-tva-nzdlipa or prescription medicines. ?Eat foods that are [...] provider. Document Revised: 07/09/2019 Document Reviewed: 07/09/2019 Mixify Patient Education 2022 [employer]. 04/25/2023 19:33:56 Back Exercises Back Exercises The [...] back becomes more flexible: 1.Get into a jlvyv-muv-hcgaz position on a firm bed or the [...] provider. Document Revised: 12/15/2021 Document Reviewed: 09/02/2021 ElseShipey Patient Education 2022 [employer]. Follow Up Care 04/21/2023 13:02:20 With:Yocasta SMITH, MASTER SCHEDULER-CERTIFIED CODER, Myron Hamilton Address: [address] [place] [phone] When: only if needed [facility] [place] 09-14-2023 Hospital Discharge [...] treat it right away. Always have a 52-sdskqvdkr-ddbsrj carbohydrate snack with you to treat low [...] you how to adjust your dosage. Take jfoz-flg-qyozdqk and prescription medicines only as told by [...] your health care provider once every year. [place] your teeth and gums two times a [...] meet with a certified diabetes care and education trainer? Where can I find a support group for people with diabetes? Where to find more information For help and guidance and for more information about diabetes, please visit: [place] Diabetes Association (ADA): www.diabetes.org [place] Association of Diabetes Care and Education Specialists [...] provider. Document Revised: 11/18/2021 Document Reviewed: 11/18/2021 Mixify Patient Education 2022 [employer]. 03/17/2023 14:42:58 DASH Eating Plan DASH Eating [...] Dairy Whole or 2% milk, cream, and plzw-qbv-tiiy. Whole or full-fat cream cheese. Whole-fat or [...] more information National Heart, Lung, and Blood [place]: www.nhlbi.nih.gov [place] Heart Association: www.heart.org Academy of Nutrition and [...] provider. Document Revised: 05/23/2020 Document Reviewed: 05/23/2020 Mixify Patient Education 2022 [employer]. 03/17/2023 14:42:56 Insomnia Insomnia Insomnia is a [...] go back to bed. General instructions Take bmvl-tuc-pruovqk and prescription medicines only as told by [...] to your nearest emergency room or: Call 998. Call the National Suicide Prevention Lifeline at or 798. This is open 24 hours a day. Text the Crisis Text Line at 675176. Summary Insomnia is a sleep disorder that [...] provider. Document Revised: 05/31/2022 Document Reviewed: 05/31/2022 Mixify Patient Education 2022 [employer]. Follow Up Care 03/15/2023 07:59:17 With:Yocasta SMITH, MASTER SCHEDULER-IRVING, Myron Hamilton Address: [address] [place] [phone] When: only if needed Comments:keep may appt, fax sleep study to [facility] [place] 05-25-2023 Hospital Discharge instructions Patient Education 11/25/2022 [...] cheese. Low-sodium cottage cheese. Fats and oils [place], canola, soybean, flaxseed, avocado, or sunflower oil. Sweets and desserts Applesauce. Granola bars. Sugar-free pudding and gelatin. Frozen fruit bars. Seasoning and other foods Fresh and dried herbs. Lemon or [place] juice. Vinegar. Low-sodium ketchup. Salt- free marinades, saladdressings, sauces, and seasonings. The items listed above may not be a complete list of foods and beverages you can eat. Contact a dietitian for more information. Foods to avoid Fruits Fruits that are dried with sodium-containing preservatives. Vegetables Canned vegetables. Frozen vegetables with sauce or seasonings. Creamed vegetables. [place] fries. Onion rings. Pickled vegetables and sauerkraut. [...] Salted nuts and seeds. Dairy Whole milk, itep-qfk-jxfn, and cream. Buttermilk. Processed cheese, cheese spreads, [...] and bouillon cubes. Horseradish, ketchup, and mustard. [facility] [place] sauce. Teriyaki sauce, soy sauce (including reduced [...] provider. Document Revised: 02/02/2021 Document Reviewed: 02/02/2021 Mixify Patient Education 2022 [employer]. 11/25/2022 15:14:21 DASH Eating Plan DASH Eating [...] Dairy Whole or 2% milk, cream, and yjxp-wwb-zqod. Whole or full-fat cream cheese. Whole-fat or [...] more information National Heart, Lung, and Blood [place]: www.nhlbi.nih.gov [place] Heart Association: www.heart.org Academy of Nutrition and [...] provider. Document Revised: 05/23/2020 Document Reviewed: 05/23/2020 Mixify Patient Education 2022 [employer]. Follow Up Care 11/10/2022 07:47:50 With:Yocasta SMITH, MASTER SCHEDULER-CERTIFIED CODER, Myron Hamilton Address: [address] [place] [phone] When:Within 6 Month(s) Comments:chronic care [facility] [place] 04-12-2023 Hospital Discharge instructions Patient Education 10/13/2022 [...] when you have heart failure Medicines Take ezut-ecp-udipcuo and prescription medicines only as told by [...] 10/03/2019 Document Revised: 10/02/2019 Document Reviewed: 10/03/2019 Mixify Patient Education 2020 [employer]. 10/13/2022 08:14:26 Heart Failure Medicines Heart Failure [...] 11/04/2017 Document Revised: 07/05/2018 Document Reviewed: 11/04/2017 Mixify Patient Education 2020 [employer]. 10/13/2022 08:14:22 Heart Failure Eating Plan Heart [...] and working with a diet and nutrition instructor (dietitian)to choose the right foods may help [...] cheese. Low-sodium cottage cheese. Fats and oils [place], canola, soybean, flaxseed, or sunflower oil. Avocado. Sweets and desserts Apple sauce. Granola bars. Sugar-free pudding and gelatin. Frozen fruit bars. Seasoning and other foods Fresh and dried herbs. Lemon or [place] juice. Vinegar. Low-sodium ketchup. Salt- free marinades, [...] vegetables with sauce or seasonings. Creamed vegetables. [place] fries. Onion rings. Pickled vegetables and sauerkraut. [...] Salted nuts and seeds. Dairy Whole milk, aoen-tsr-evcr, and cream. Buttermilk. Processed cheese, cheese spreads, [...] 11/04/2017 Document Revised: 08/16/2019 Document Reviewed: 11/04/2017 Mixify Patient Education 2020 [employer]. 10/13/2022 08:14:21 Heart Failure and Exercise Heart [...] You can increase your flexibility by: Doing oliiva chi. Doing yoga. Stretching. How much aerobic [...] Document Reviewed: 11/01/2017 Elsevier Patient Education 2020 [employer] Inc. 10/13/2022 08:14:18 Form - Daily Weight [...] With:Carmen Haley DO Address: When:Within 1 Month(s) [facility]03-[facility]-2023 Hospital Discharge instructions Patient Education 09/29/2022 [...] require a prescription and some youcan purchase bgmm-kwd-qcsjcsk. Medicines may have nicotine in them to [...] for support and encouragement. Call telephone quitlines (), reach out to support groups, or work [...] 06/14/2002 Document Revised: 09/07/2019 Document Reviewed: 09/08/2019 Mixify Patient Education 2020 [employer]. 09/29/2022 12:38:01 Heart Failure Eating Plan Heart [...] and working with a diet and nutrition instructor (dietitian)to choose the right foods may help [...] cheese. Low-sodium cottage cheese. Fats and oils [place], canola, soybean, flaxseed, or sunflower oil. Avocado. Sweets and desserts Apple sauce. Granola bars. Sugar-free pudding and gelatin. Frozen fruit bars. Seasoning and other foods Fresh and dried herbs. Lemon or [place] juice. Vinegar. Low-sodium ketchup. Salt- free marinades, [...] vegetables with sauce or seasonings. Creamed vegetables. [place] fries. Onion rings. Pickled vegetables and sauerkraut. [...] Salted nuts and seeds. Dairy Whole milk, owma-nog-kwbv, and cream. Buttermilk. Processed cheese, cheese spreads, [...] Document Reviewed: 11/04/2017 Elsevier Patient Education 2020 [employer] 09/29/2022 12:37:57 Form - Daily Weight [...] With:Carmen Haley DO Address: When:Within 2 Week(s) [facility]03-[facility]23 Hospital Discharge instructions Patient Education 09/24/2022 [...] 06/22/2004 Document Revised: 04/13/2019 Document Reviewed: 11/29/2016 Mixify Patient Education 2020 [employer]. Follow Up Care 09/13/2022 14:16:08 With:Yocasta SMITH, MASTER SCHEDULER-CERTIFIED CODER, Myron Hamilton Address: [address] [place] [phone] When: Unknown Comments:see nurse for Dr Haley's lab Tuesday. Next primary care visit in November [facility] [place] 03-22-2023 Hospital Discharge instructions Patient Education 09/22/2022 [...] 06/20/2006 Document Revised: 09/07/2019 Document Reviewed: 09/07/2019 Mixify Patient Education 2020 [employer]. 09/22/2022 09:54:51 Heart Failure Medicines Heart Failure [...] 11/04/2017 Document Revised: 07/05/2018 Document Reviewed: 11/04/2017 Mixify Patient Education 2020 [employer]. 09/22/2022 09:54:49 Heart Failure Eating Plan Heart [...] and working with a diet and nutrition instructor (dietitian)to choose the right foods may help [...] cheese. Low-sodium cottage cheese. Fats and oils [place], canola, soybean, flaxseed, or sunflower oil. Avocado. Sweets and desserts Apple sauce. Granola bars. Sugar-free pudding and gelatin. Frozen fruit bars. Seasoning and other foods Fresh and dried herbs. Lemon or [place] juice. Vinegar. Low-sodium ketchup. Salt- free marinades, [...] vegetables with sauce or seasonings. Creamed vegetables. [place] fries. Onion rings. Pickled vegetables and sauerkraut. [...] Salted nuts and seeds. Dairy Whole milk, vzbt-ley-vaxs, and cream. Buttermilk. Processed cheese, cheese spreads, [...] bouillon cubes. Horseradish, ketchup, and mustard. [facility] sauce. Teriyaki sauce, soy sauce (including reduced [...] 11/04/2017 Document Revised: 08/16/2019 Document Reviewed: 11/04/2017 [employer] Patient Education 2019 [employer]. 09/22/2022 09:54:44 Heart Failure Action Plan Heart [...] symptoms. Follow these instructions at home: Take ffes-ioz-ljwzowt and prescription medicines only as told by your health care provider. Weigh yourself daily. Your target weight is lb ( kg). ?Call your health care provider if you gain more than lb ( kg) in a day, or more than lb ( kg) in one week. Eat a heart-healthy diet. Work with a diet and nutrition instructor (dietitian) to create an eatingplan that is best for you. Keep all follow-up visits as told by your health care provider. This is important. Where to find more information [place] Association: www.heart.org Summary Follow the action [...] 07/30/2017 Document Revised: 06/02/2018 Document Reviewed: 07/30/2017 [employer] Patient Education 2020 [employer] 09/22/2022 09:53:36 Pulmonary Edema Pulmonary Edema [...] Follow these instructions at home: Medicines Take kyqo-kda-ktlczkc and prescription medicines only as told by [...] infections or injury to the lungs. Take zroo-slm-tuilqwr and prescription medicines only as told by your health care provider. This information is not intended to replace advice given to you by your health care provider. Make sure you discuss any questions you have with your health care provider. Document Released: 09/10/2003 Document Revised: 06/02/2018 Document Reviewed: 08/31/2017 [employer] Patient Education 2020 [employer]. 09/22/2022 09:53:16 Steps to Quit Smoking Steps [...] require a prescription and some youcan purchase nycl-rqj-bkihaxz. Medicines may have nicotine in them to [...] for support and encouragement. Call telephone quitlines (2-476-QVKONOW), reach out to support groups, or work [...] 06/14/2002 Document Revised: 09/07/2019 Document Reviewed: 09/08/2019 [employer] Patient Education 2020 [employer]. 09/22/2022 09:53:10 Health Risks of Smoking Health [...] these methods. Where to find more information [place]: www.lung.org [place]: www.cancer.org Summary Smoking cigarettes is [...] 07/28/2005 Document Revised: 09/21/2018 Document Reviewed: 06/24/2017 [employer] Patient Education 2020 [employer]. 09/22/2022 09:52:53 Cooking With Less Salt Cooking With Less Salt Cooking with less salt is one way to reduce the amount of sodium you get from food. Depending on your condition and overall health, your health care provider or diet and nutrition instructor (dietitian) may recommend that you reduce your [...] foods. Use sodium-free baking soda when baking. [place], braise, or roast foods to add flavor [...] foods you can pair it with. Herbs [place] leaves Soups, meat and vegetable dishes, and spaghetti sauce. Basil Zambian dishes, soups, pasta, and fish dishes. Cilantro Meat, poultry, and vegetable dishes. [place] powder Marinades and Ukrainian dishes. Chives Salad dressings and potato dishes. Cumin Ukrainian dishes, couscous, and meat dishes. Dill Fish dishes, sauces, and salads. Fennel Meat and vegetable dishes, breads, and cookies. Garlic (do not use garlic salt) Zambian dishes, meat dishes, salad dressings, and sauces. Marjoram Soups, potato dishes, and meat dishes. Oregano Pizza and spaghetti sauce. Parsley Salads, soups, pasta, and meat dishes. Zakia Zambian dishes, salad dressings, soups, and red meats. [...] and low-sodium cheeses. Good cheese choices include Macedonian, Hartline Kameron, and mozzarella. Always check the label [...] 06/20/2006 Document Revised: 06/02/2018 Document Reviewed: 06/28/2017 [employer] Patient Education 2020 [employer]. 09/22/2022 09:52:44 BMI for Adults BMI for [...] height. This can be done either in Stateless (U.S[place] or metric measurements. Note that charts are available to help you find your BMI quickly and easily without having to do these calculations yourself. To calculate your BMI in Stateless (U.S[place] measurements, your health care provider will: [...] medical problems. BMI can be measured using Stateless measurements or metric measurements. To interpret your [...] 03/01/2005 Document Revised: 06/02/2018 Document Reviewed: 05/03/2018 [employer] Patient Education 2020 [employer]. Follow Up Care 09/17/2022 09:26:53 With:Carmen Haley DO Address: When:09/29/2022 [facility]03-13-2023 Progress note Author José Sanchez [facility] September 13, 2022 9:31pm Note Date/Time September 13, 2022 9:3 1pm [facility] [address] [place] [address] Hospitalist Progress Note Signed Patient: Carmen Bledsoe MR#: [id number] : 1960 Acct:[id number] Age/Sex: 61 / F Adm Date: 3 Loc: 4 Room: [address] [place] [address] Type: ADM IN Attending Dr: José Sanchez [...] 09/11/22 09:00 09/13/22 09:02 Pantoprazole 40 Mg Tablet. PO 09/11/23 08:59 40 mg DAILY BRISEIDA [...] 09/13/22 20:27 Thiamine 100 Mg Tablet PO 03/09/24 20:59 100 mg BID BRISEIDA Administration A&P [...] <Electronically signed by José Sanchez MD> 09/13/222130 [facility] Work Phone: 1(886) 496-303403-12-2023 Progress note Author Marilyn Sun [facility] September 12, 2022 12:22pm Note Date/Time September 12, 2022 12: 13pm [facility] [address] [place] [address] Hospitalist Progress Note Signed Patient: Carmen Bledsoe MR#: [id number] : 1960 Acct:[id number] Age/Sex: 61 / F Adm Date: 3 Loc: Room: [address] [place] [address] Type: ADM IN Attending Dr: Marilyn Sun [...] 09/11/22 09:00 09/12/22 08:58 Aspirin 81 Mg Tablet. PO 09/11/23 08:59 [...] 09:00 09/12/22 08:57 Pantoprazole 40 Mg Tablet.Dr [place] 09/11/23 08:59 40 mg DAILY BRISEIDA Administration [...] <Electronically signed by Marilyn Sun MD> 09/12/22 1220 [facility] Work Phone: 1(891) 155-148903-11-2023 History and physical note Author Marilyn Sun [facility] September 11, 2022 11:38am Note Date/Time September 10, 2022 1:3 6pm [facility] [address] [place] [address] Hospitalist H&P Signed with Anastacio Patient: Carmen Bledsoe MR#: [id number] : 1960 Acct:[id number] Age/Sex: 61 / F Adm Date: 3 Loc: Room: [address] [place] [address] Type: ADM IN Attending Dr: Marilyn Sun [...] Addendum Documented By: Marilyn Sun MD 09/10/22 2609 Addendum Signed By: <Electronically signed by Marilyn [...] % (Auto) 21.5 % (.) 09/10/22 11: Canyon % (Auto) 5.1 % (.) 09/10/22 11: Eos % (Auto) 1.6 % (.) 09/10/22 11: Baso % (Auto) 1.1 % (.) 09/10/22 11: Nucleat RBC Rel Count 0.3 /100 WBC (0-0.5) 09/10/22 11: Neut # (Auto) 3.7 x10E3/uL (1.8-7.7) 09/10/22 11: Lymph # (Auto) 1.1 x10E3/uL (1.00-4.8) 09/10/22 11: Canyon # (Auto) 0.3 x10E3/uL (0.0-0.8) 09/10/22 11: [...] 09/10/22 11: Chloride 99 mmol/L (98-107) 09/10/22 11: Carbon Dioxide 29.0 mmol/L (21.0-31.0) 09/10/22 11: Anion Gap 13.7 mEq/L (6.0-15.0) 09/10/22 11:26 BUN 24 mg/dL (7-25) 09/10/22 11: Creatinine [...] bedside. All questions answered. In agreement with theove plan -Based on my assessment and evaluation [...] signed by Marilyn Sun MD> 09/10/22 154 [facility] Work Phone: 1(811) 629-134903-11-2023 Progress note Author Marilyn Sun [facility] September 11, 2022 11:36am Note Date/Time September 11, 2022 11: 07am [facility] [address] [place] [address] Hospitalist Progress Note Signed Patient: Carmen Bledsoe MR#: [id number] : 1960 Acct:[id number] Age/Sex: 61 / F Adm Date: 3 Loc: 4N Room: [address] [place] [address] Type: ADM IN Attending Dr: Marilyn Sun [...] agreement with the plan. Will transfer to [facility] for now. Marilyn Escobedo MD Internal Medicine Hospitalist Attending Physician Documented By: Marilyn Sun MD 09/11/22 11 04 Signed By: <Electronically signed by Marilyn Sun MD> 09/11/22 1136 [facility] Work Phone: 1(444) 610-274603-06-2023 Hospital Discharge instructions Patient Education 09/06/2022 12:23:58 [...] hospital. Follow these instructions at home: Take jipw-juc-nmzigof and prescription medicines only as told by [...] cantaloupe, kiwi, oranges, tomatoes, asparagus, and potatoes. ?[place] juice. ?Tomato juice. ?Red meats. ?Yogurt. Keep [...] 06/20/2006 Document Revised: 01/31/2019 Document Reviewed: 01/31/2019 [employer] Patient Education 2020 [employer]. Follow Up Care 08/23/2022 15:13:00 With:Yocasta SMITH, Myron ESPINO Address: [address] [place] [phone] When: Unknown Comments:telephone result to maribel. See referrals [facility] 02-09-2023 Hospital Discharge [...] plan? Your health care provider or certified surgical technologist can help you make a plan for [...] stress. Your health care provider or certified surgical technologist can help you make a plan for [...] 09/09/2004 Document Revised: 01/12/2018 Document Reviewed: 11/29/2016 [employer] Patient Education 2020 [employer]. Follow Up Care 08/12/2022 10:06:58 With:Yocasta SMITH, MASTER SCHEDULER-CERTIFIED CODER, Myron Hamilton Address: [address] [place] [phone] When: Unknown Comments:Echo order for [facility]. Telephone result to patient [facility] 06-29-2022 Hospital Discharge instructions Patient Education 12/30/2021 [...] of hard liquor (1 oz). Medicines Take qqcg-itm-zbxjncf and prescription medicines only as told by [...] Centers for Disease Control and Prevention: www.cdc.gov/heartdisease [place] Heart Association: www.heart.org ?Take a free online [...] 02/01/2005 Document Revised: 07/05/2018 Document Reviewed: 07/05/2018 [employer] Patient Education [employer]. Follow Up Care 12/24/2021 08:31:22 With:Parish PATE Address: [address] [place] [address]- When:Within 6 Month(s) [facility] 01-10-2022 History of Present [...] BMR: 2209 calories Est. total calorie needs: ~9679-1851 Client overall goal for weight is for [...] pizza, or consume foods from community, including malay food or fast foods. Has not been [...] the referral. Education session duration: 60 minutes; ([id number]). Reminder to ordering Physician/Provider: Diabetes and CKD (non-dialysis) patients may have 2 hours of MNT education in subsequent years. Hours can be spread over any number of visits. documented in this [employer] Phone: 1(454) 387-962501-06-2022 History of Present illness Narrative* Sarah Salmon [...] Carmen Bledsoe Referring Provider: DARLEEN Bernardo NP [place] to learning: Considerations: []Language []Emotional []Health Literacy []Cognitive []Memory changes []Financial []Cultural []Yarsani []Vision []Hearing []Speech []Lack of desire []Literacy [...] not started working on diet because of [place]. Given a one week food diary and [...] the relationship of blood glucose levels to intermediate school teacher complications of diabetes.Identify preventative measures and standard [...] ) ADA website: Http://www.diabetes.org ( ) Http: //www.[employer]/-russ/faq.htm ( ) Diabetes Forecast Alcove you may get this information on the ADA web site. ( ) Diabetes Interview - Alcove ( ) Diabetes Self Management (bi-monthly magazine) ( x ) Support group: [place] third Tuesday of the month at 9 am ( ) Health Journeys Image Paths (relaxation tapes for people with Diabetes) ( ) Your suggestions: Sarah Salmon RN [facility] Diabetes clinic educator 07/09/2021 10:17 AM [facility] Phone: 1(921) 363-752412-30-2021 History of Present illness Narrative* Sarah Salmon [...] events 8 Diabetes disaster planning Progress Note: aCrmen here for diabetes education class 2. Carmen [...] Carmen Bledsoe Referring Provider: DARLEEN Bernardo NP [place] to learning: Considerations: []Language []Emotional []Health Literacy []Cognitive []Memory changes []Financial []Cultural []Yarsani []Vision []Hearing []Speech []Lack of desire []Literacy [...] not started working on diet because of [place]. Given a one week food diary and [...] the relationship of blood glucose levels to intermediate school teacher complications of diabetes.Identify preventative measures and standard [...] ) ADA website: Http://www.diabetes.org ( ) Http: //www.[employer].Farmol/-russ/faq.htm ( ) Diabetes Forecast Alcove you may get this information on the ADA web site. ( ) Diabetes Interview - Alcove ( ) Diabetes Self Management (bi-monthly magazine) ( x ) Support group: [facility] third Tuesday of the month at 9 am ( ) Health Journeys Image Paths (relaxation tapes for people with Diabetes) ( ) Your suggestions: Sarah Salmon RN [facility] Diabetes clinic educator 07/02/2021 10:41 AM documented in this [facility] Work Phone: evaluation + Plan note Future Appointments Appointment Date:07/09/2022 11:00:00 AM Scheduled Provider:Parish PATE Location:[facility] Appointment Type:[facility] Evaluation + Plan [facility] Evaluation + Plan note Future Appointments Appointment Date:09/24/2022 02:40:00 PM Scheduled Provider:EFREN GRIFFINFPLupis Location:[facility] Appointment Type: ER/Hospital Follow Up Appointment Date:09/29/2022 11:30:00 AM Scheduled Provider:Carmen Haley DO [facility] Appointment Type:Cardiology Follow Up (FT) Future Scheduled Tests Laboratory* B-Type Natriuretic Peptide 09/22/22 * Basic Metabolic Panel 09/22/22 * Basic Metabolic Panel 09/22/22 Radiology* NM Myocardial Spect Rest/Stress 2 Day 09/22/22 [facility] Future Appointments Appointment Date:09/27/2022 10:40:00 AM Scheduled Provider: Location:[facility] Appointment Type: Nurse Visit Appointment Date:09/29/2022 11:30:00 AM Scheduled Provider:Carmen Haley DO [facility] Appointment Type:Cardiology Follow Up (FT) Appointment Date:11/26/2022 02:40:00 PM Scheduled Provider:Yocasta SMITH, MASTER SCHEDULER-CERTIFIED CODERMyron Location:[facility] Appointment Type: Open Future Scheduled Tests Laboratory* B-Type Natriuretic Peptide 09/22/22 * Basic Metabolic Panel 09/22/22 * Basic Metabolic Panel 09/22/22 Radiology* NM Myocardial Spect Rest/Stress 2 Day 09/22/22 [facility] Evaluation + Plan note Future Appointments Appointment Date:09/29/2022 11:30:00 AM Scheduled Provider:Carmen Haley DO [facility] Appointment Type:Cardiology Follow Up (FT) Appointment Date:11/26/2022 02:40:00 PM Scheduled Provider:SRINIVAS Pereyra Tammy L. Location:[facility] Appointment Type: Open Future Scheduled Tests Laboratory* Basic Metabolic Panel 09/22/22 Radiology* NM Myocardial Spect Rest/Stress 2 Day 09/22/22 [facility] Evaluation + Plan note Future Appointments Appointment Date:09/29/2022 11:30:00 AM Scheduled Provider:Carmen Haley DO Location:[facility] Appointment Type:Cardiology Follow Up (FT) Appointment Date:11/26/2022 02:40:00 PM Scheduled Provider:SRINIVAS Pereyra Tammy L. Location:[facility] Appointment Type: Open Diagnostic Tests Pending * Basic Metabolic Panel 09/27/22 Future Scheduled Tests Laboratory* Basic Metabolic Panel 09/22/22 Radiology* NM Myocardial Spect Rest/Stress 2 Day 09/22/22 [facility] Future Appointments Appointment Date:10/13/2022 09:00:00 AM Scheduled Provider:Carmen Haley DO [facility] Appointment Type:Cardiology Follow Up (FT) Appointment Date:10/18/2022 01:40:00 PM Scheduled Provider:Lupis SCHWARTZ MD, FAAFP Location:[facility] Appointment Type: Open Appointment Date:11/26/2022 02:40:00 PM Scheduled Provider:SRINIVAS Pereyra Tammy L. Location:[facility] Appointment Type: Open Future Scheduled Tests Laboratory* Basic Metabolic Panel 09/22/22 Radiology* NM Myocardial Spect Rest/Stress 2 Day 09/22/22 [facility] Future Appointments Appointment Date:10/13/2022 09:00:00 AM Scheduled Provider:Carmen Haley DO [facility] [place] Appointment Type:Cardiology Follow Up (FT) Appointment Date:10/18/2022 01:40:00 PM Scheduled Provider:Lupis SCHWARTZ MD, FAAFP [facility] Type:FM Open Appointment Date:10/19/2022 02:00:00 PM Scheduled Provider: [facility] Appoint[facility] Type:CV EKG (FT) Appointment [...] Appointment Date:11/26/2022 02:40:00 PM Scheduled Provider:Yocasta SMITH, MASTER SCHEDULER-Myron VILLATORO Location:[facility] Appointment Type: Open Future Scheduled Tests Radiology* NM Myocardial Spect Rest/Stress 2 Day 10/19/22 [facility] [place] Evaluation + Plan note Future Appointments Appointment Date:10/18/2022 01:40:00 PM Scheduled Provider:Lupis SCHWARTZ MD, FAAFP [facility] App[facility] Type:FM Open Appointment Date:10/19/2022 02:00:00 PM Scheduled Provider: [facility] Appoint[facility] Type:CV EKG (FT) Appointment Date:10/19/2022 02:30:00 PM Scheduled Provider: Location[facility] Appointment Type:NM Myocard Spect Multi Rest/Stress-Res Appointment Date:10/19/2022 03:30:00 PM Scheduled Provider: [facility] App[facility] Type:NM Myocard Spect Multi Rest/Stress - R Appointment Date:10/20/2022 02:30:00 PM Scheduled Provider: [facility] Appointment Type:NM Myocard Spect MultiRest/Stress-Stre Appointment Date:10/20/2022 03:30:00 PM Scheduled Provider: [facility] Appointment Type:NM Myocard Spect Multi Rest/Stress - S Appointment Date:11/26/2022 02:40:00 PM Scheduled Provider:SRINIVAS Pereyra Tammy L. [facility] Type: Open Future Scheduled Tests Laboratory* Vitamin D 25 Hydroxy 10/13/22 * Creatine Kinase 10/13/22 Radiology* US LE Venous Duplex Insufficiency Bilat 10/13/22 * US PVR Lower EXT Complete Bilat 10/13/22 * NM Myocardial Spect Rest/Stress 2 Day 10/19/22 [facility] Future Appointments Appointment Date:05/30/2023 02:00:00 PM Scheduled Provider:SRINIVAS Pereyra Tammy L. Location:[facility] Appointment Type: Open Future Scheduled Tests Laboratory* Vitamin D 25 Hydroxy 10/13/22 * Creatine Kinase 10/13/22 Radiology* US LE Venous Duplex Insufficiency Bilat 10/13/22 [facility] Evaluation + Plan note Future Appointments Appointment Date:04/26/2023 10:00:00 AM Scheduled Provider:Alirio Ramirez MD [facility] [place] Appointment Type:Cardiology Follow Up (FT) Appointment Date:05/30/2023 02:00:00 PM Scheduled Provider:SRINIVAS Pereyra Tammy L. [facility] Type: Open Future Scheduled Tests Laboratory* Vitamin D 25 Hydroxy 10/13/22 * Creatine Kinase 10/13/22 Radiology* US LE Venous Duplex Insufficiency Bilat 10/13/22 * US PVR Lower EXT Complete Bilat 01/11/23 [facility] Future Appointments Appointment Date:05/09/2023 01:00:00 PM Scheduled Provider: [facility] Appoint[facility] Type:US Duplex Procedures (FT) Appointment Date:05/30/2023 02:00:00 PM Scheduled Provider:SRINIVAS Pereyra Tammy L. Location:[facility] Appointment Type: Open Future Scheduled Tests Laboratory* Vitamin D 25 Hydroxy 10/13/22 * Creatine Kinase 10/13/22 Radiology* US PVR w/ Exercise 05/09/23 * US LE Venous Duplex Insufficiency Bilat 10/13/22 [facility] Evaluation + Plan note Future Appointments Appointment Date:07/25/2023 02:00:00 PM Scheduled Provider:SRINIVAS Pereyra Tammy L. Location:[facility] Appointment Type: Open Future Scheduled Tests Laboratory* Vitamin D 25 Hydroxy 10/13/22 * Creatine Kinase 10/13/22 Radiology* US LE Venous Duplex Insufficiency Bilat 10/13/22 [facility] Future Appointments Appointment Date:10/25/2023 03:00:00 PM Scheduled Provider:Alirio Ramirez MD [facility] [place] Appointment Type:Cardiology Follow Up (FT) Appointment Date:10/26/2023 01:20:00 PM Scheduled Provider:SRINIVAS Pereyra Tammy L. Location:[facility] Appointment Type: Open Appointment Date:11/02/2023 10:30:00 AM Scheduled Provider:Walker Phillip MD [facility] Type[facility] New Patient Future Scheduled Tests Laboratory* Vitamin D 25 Hydroxy 10/13/22 * Creatine Kinase 10/13/22 Radiology* US LE Venous Duplex Insufficiency Bilat 10/13/22 [facility] Evaluation + Plan note Future Appointments Appointment Date:10/26/2023 01:20:00 PM Scheduled Provider:SRINIVAS Pereyra Tammy L. Location:[facility] Appointment Type: Open Appointment Date:11/02/2023 10:30:00 AM Scheduled Provider:Walker Phillip MD [facility] Appointment Type:BAD New Patient Appointment Date:11/10/2023 03:00:00 PM Scheduled Provider: Location:[facility] Appointment Type:FM Nurse Visit Appointment Date:12/06/2023 03:15:00 PM Scheduled Provider:Alirio Ramirez MD [facility] Appointment Type:Cardiology Follow Up (FT) Future Scheduled Tests Laboratory* B-Type Natriuretic Peptide 10/25/23 * Basic Metabolic Panel 10/25/23 Radiology* Echo Transthoracic Complete 10/25/23 [facility] Future Appointments Appointment Date:11/02/2023 10:30:00 AM Scheduled Provider:Walker Phillip MD [facility] Type:[facility] New Patient Appointment Date:11/08/2023 03:00:00 PM Scheduled Provider: [facility] [place] Appointment Type:CV Echo (FT) Appointment Date:11/10/2023 03:00:00 PM Scheduled Provider: Location:[facility] Appointment Type: Nurse Visit Appointment Date:11/25/2023 02:40:00 PM Scheduled Provider:SRINIVAS Pereyra Tammy L. Location:[facility] Appointment Type: Open Appointment Date:12/06/2023 03:15:00 PM Scheduled Provider:Alirio Ramirez MD [facility] Appointment Type:Cardiology Follow Up (FT) Future Scheduled Tests Laboratory* B-Type Natriuretic Peptide 10/25/23 * Basic Metabolic Panel 10/25/23 Radiology* Echo Transthoracic Complete 11/08/23 [facility] [place] Evaluation + Plan note Future Appointments Appointment Date:11/08/2023 03:00:00 PM Scheduled Provider: [facility] [place] Appointment Type:CV Echo (FT) Appointment Date:11/10/2023 03:00:00 PM Scheduled Provider: [facility] Type: Nurse Visit Appointment Date:11/25/2023 02:40:00 PM Scheduled Provider:SRINIVAS Pereyra Tammy L. Location:[facility] Appointment Type: Open Appointment Date:12/06/2023 03:15:00 PM Scheduled Provider:Alirio Ramirez MD [facility] Appointment Type:Cardiology Follow Up (FT) Appointment Date:12/23/2023 10:30:00 AM Scheduled Provider: Location:[facility] Appointment Type:Surgery FT Appointment Date:12/23/2023 12:00:00 PM Scheduled Provider: Location:[facility] Appointment Type:Surgery FT Appointment Date:01/13/2024 10:45:00 AM Scheduled Provider:Walker Phillip MD [facility] Future [facility]uled Tests Laboratory* Hep B Core Ab, Tot 11/02/23 * Kdspx-4-Nznasxgnchj 11/02/23 * B-Type Natriuretic Peptide 10/25/23 * [...] PT 11/02/23 Radiology* Echo Transthoracic Complete 11/08/23 [facility] Evaluation + Plan note Future Appointments Appointment Date:11/10/2023 03:00:00 PM Scheduled Provider: Location:[facility] Appointment Type:FM Nurse Visit Appointment Date:11/25/2023 02:40:00 PM Scheduled Provider:Yocasta MSN, MASTER SCHEDULER-CERTIFIED CODER, Myron Hamilton Location:[facility] Appointment Type:FM Open Appointment Date:12/06/2023 03:15:00 PM Scheduled Provider:Alirio Ramirez MD [facility] Appointment Type:Cardiology Follow Up (FT) Appointment Date:12/23/2023 10:30:00 AM Scheduled Provider: Location:[facility] Appointment Type:Surgery FT Appointment Date:12/23/2023 12:00:00 PM Scheduled Provider: Location:[facility] Appointment Type:Surgery FT Appointment Date:01/13/2024 10:45:00 AM Scheduled Provider:Walker Phillip MD [place] Appointment Type:[facility] Follow Up Future Scheduled Tests Laboratory* Hep B Core Ab, Tot 11/02/23 * Ccxie-3-Rvwycxrdepg 11/02/23 * B-Type Natriuretic Peptide 10/25/23 * [...] * Iron Level 11/02/23 * [facility] Appointment Date:12/06/2023 03:15:00 PM Scheduled Provider:Adam SAMPSON, Alirio Hooper [facility] [place] Appointment Type:Cardiology Follow Up (FT) Appointment Date:12/23/2023 10:30:00 AM Scheduled Provider: Location:[facility] Appointment Type:Surgery FT Appointment Date:12/23/2023 12:00:00 PM Scheduled Provider: Location:[facility] Appointment Type:Surgery FT Appointment Date:01/13/2024 10:45:00 AM Scheduled Provider:Walker Phillip MD [place] Appointment Type:[facility] Follow Up Appointment Date:02/22/2024 01:20:00 PM Scheduled Provider:Yocasta SMITH, MASTER SCHEDULER-CERTIFIED CODERMyron Location:[facility] Appointment Type: Open Future Scheduled Tests Laboratory* Hep B Core Ab, Tot 11/02/23 * Svtez-6-Ingqflgtjrb 11/02/23 * B-Type Natriuretic Peptide 10/25/23 * [...] * Iron Level 11/02/23 * PT 11/02/23 [facility] [place] Evaluation + Plan note Future Appointments Appointment Date:12/23/2023 10:30:00 AM Scheduled Provider: Location:[facility] Appointment Type:Surgery FT Appointment Date:12/23/2023 12:00:00 PM Scheduled Provider: Location:[facility] Appointment Type:Surgery FT Appointment Date:01/13/2024 10:45:00 AM Scheduled Provider:Walker Phillip MD [place] Appointment Type:[facility] Follow Up Appointment Date:02/22/2024 01:20:00 PM Scheduled Provider:Yocasta MSN, MASTER SCHEDULER-CERTIFIED CODER, Myron Hamilton Location:[facility] Appointment Type:FM Open Appointment Date:06/05/2024 01:00:00 PM Scheduled Provider:Adam SAMPSON, Alirio Hooper [facility] [place] Appointment Type:Cardiology Follow Up (FT) Future Scheduled Tests Laboratory* Hep B Core Ab, Tot 11/02/23 * Nqlyv-6-Rtylxtmvpln 11/02/23 * B-Type Natriuretic Peptide 10/25/23 * [...] * Iron Level 11/02/23 * PT [facility]/02/23 [facility] App[facility]ments Appointment Date:02/22/2024 01:20:00 PM Scheduled Provider:Yocasta SMITH, Myron ESPINO Location:[facility] Appointment Type: Open Appointment Date:06/05/2024 01:00:00 PM Scheduled Provider:Alirio Ramirez MD [facility] Appointment Type:Cardiology Follow Up (FT) Future Scheduled Tests Laboratory* Hep B Core Ab, Tot 11/02/23 * Ytins-3-Crrhhfuebse 11/02/23 * B-Type Natriuretic Peptide 10/25/23 * [...] * Iron Level 11/02/23 * PT 11/02/23 [facility] Evaluation + Plan note Future Appointments Appointment Date:06/05/2024 01:00:00 PM Scheduled Provider:Alirio Ramirez MD [facility] Appointment Type:Cardiology Follow Up (FT) Appointment Date:08/29/2024 01:00:00 PM Scheduled Provider:Yocasta SMITH, Myron ESPINO Location:[facility] Appointment Type: Open Appointment Date:08/31/2024 11:00:00 AM Scheduled Provider: Location:[facility] Appointment Type:Surgery FT Future Scheduled Tests Laboratory* Hep B Core Ab, Tot 11/02/23 * Moxjv-5-Dattdzltgfw 11/02/23 * B-Type Natriuretic Peptide 10/25/23 * [...] * Iron Level 11/02/23 * PT 11/02/23 [facility] [place] Evaluation + Plan note Future Appointments Appointment Date:08/29/2024 01:00:00 PM Scheduled Provider:Yocasta MSN, MASTER SCHEDULER-CERTIFIED CODER, Myron Hamilton Location:[facility] Appointment Type: Open Appointment Date:08/31/2024 11:00:00 AM Scheduled Provider: Location:[facility] Appointment Type:Surgery FT Appointment Date:12/18/2024 11:00:00 AM Scheduled Provider:Rick Hernandez PA-C [facility] [place] Appointment Type:Cardiology Follow Up (FT) Future Scheduled Tests Laboratory* Hep B Core Ab, Tot 11/02/23 * Hcxnp-5-Fvuupcnnpvx 11/02/23 * B-Type Natriuretic Peptide 10/25/23 * [...] * Iron Level 11/02/23 * PT 11/02/23 [facility] Evaluation + Plan note Future Appointments Appointment Date:07/13/2024 11:00:00 AM Scheduled Provider: [facility] Type:FM Nurse Visit Appointment Date:07/18/2024 12:00:00 PM Scheduled Provider:SRINIVAS Pereyra Tammy L. Location:[facility] Appointment Type: Open Appointment Date:08/29/2024 01:00:00 PM Scheduled Provider:SRINIVAS Pereyra Tammy L. Location:[facility] Appointment Type: Open Appointment Date:08/31/2024 11:00:00 AM Scheduled Provider: Location:[facility] Appointment Type:Surgery FT Appointment Date:12/18/2024 11:00:00 AM Scheduled Provider:Rick Hernandez PA-C [facility] [place] Appointment Type:Cardiology Follow Up (FT) Future Scheduled Tests Laboratory* Hep B Core Ab, Tot 11/02/23 * HgbA1c 07/11/24 * Fwwan-3-Sumczeckwrv 11/02/23 * B-Type Natriuretic Peptide 07/11/24 * [...] PT 11/02/23 * Vitamin B12 Level 07/11/24 [facility] [place] Evaluation + Plan note Future Appointments Appointment Date:07/18/2024 12:00:00 PM Scheduled Provider:SRINIVAS Pereyra Tammy L. [facility]: Open Appointment Date:08/29/2024 01:00:00 PM Scheduled Provider:SRINIVAS Pereyra Tammy L. [facility] Type: Open Appointment Date:08/31/2024 11:00:00 AM Scheduled Provider: Location:[facility] Appointment Type:Surgery FT Appointment Date:12/18/2024 11:00:00 AM Scheduled Provider:Rick Hernandez PA-C [facility] Appointment Type:Cardiology Follow Up (FT) Future Scheduled Tests Laboratory* Hep B Core Ab, Tot 11/02/23 * Hgeqr-9-Lqxhclxvdlb 11/02/23 * B-Type Natriuretic Peptide 10/25/23 * [...] * Iron Level 11/02/23 * PT 11/02/23 [facility] [place] Evaluation + Plan note Future Appointments Appointment Date:07/18/2024 12:00:00 PM Scheduled Provider:SRINIVAS Pereyra Tammy L. [facility] Type: Open Appointment Date:08/29/2024 01:00:00 PM Scheduled Provider:SRINIVAS Pereyra Tammy L. [facility] Type: Open Appointment Date:08/31/2024 11:00:00 AM Scheduled Provider: Location:[facility] Appointment Type:Surgery FT Appointment Date:12/18/2024 11:00:00 AM Scheduled Provider:Rick Hernandez PA-C [facility] Appointment Type:Cardiology Follow Up (FT) Diagnostic Tests Pending * HgbA1c 07/13/24 Future Scheduled Tests Laboratory* Hep B Core Ab, Tot 11/02/23 * Tyjyf-8-Iipbibqrvzp 11/02/23 * B-Type Natriuretic Peptide 10/25/23 * [...] * Iron Level 11/02/23 * PT 11/02/23 [facility] Evaluation + Plan note Future Appointments Appointment Date:08/31/2024 11:00:00 AM Scheduled Provider: Location:[facility] Appointment Type:Surgery FT Appointment Date:09/12/2024 01:00:00 PM Scheduled Provider:Yocasta MSN, MASTER SCHEDULER-CERTIFIED CODER, Myron Hamilton [facility] Type: Open Appointment Date:12/18/2024 11:00:00 AM Scheduled Provider:Rick Hernandez PA-C [facility] [place] Appointment Type:Cardiology Follow Up (FT) Future Scheduled Tests Laboratory* Hep B Core Ab, Tot 11/02/23 * Zqgil-1-Sqadzmjjtxe 11/02/23 * B-Type Natriuretic Peptide 10/25/23 * [...] * Iron Level 11/02/23 * PT 11/02/23 [facility] [place] Evaluation + Plan note Future Appointments Appointment Date:09/12/2024 01:00:00 PM Scheduled Provider:Yocasta SMITH, Myron ESPINO [facility] Type: Open Appointment Date:12/18/2024 11:00:00 AM Scheduled Provider:Rick Hernandez PA-C [facility] [place] Appointment Type:Cardiology Follow Up (FT) Future Scheduled Tests Laboratory* Hep B Core Ab, Tot 11/02/23 * Kqlae-5-Yduxgxmckzy 11/02/23 * B-Type Natriuretic Peptide 10/25/23 * [...] * Iron Level 11/02/23 * PT 11/02/23 [facility] Evaluation + Plan note Future Appointments Appointment Date:12/18/2024 11:00:00 AM Scheduled Provider:Rick Hernandez PA-C [facility] Appointment Type:Cardiology Follow Up (FT) Appointment Date:12/19/2024 12:40:00 PM Scheduled Provider:Yocasta SMITH, SRINIVAS, Myron Hamilton [facility] Type: Open Future Scheduled Tests Laboratory* Hep B Core Ab, Tot 11/02/23 * Vksjv-1-Vutnopzlpsf 11/02/23 * B-Type Natriuretic Peptide 10/25/23 * [...] * Iron Level 11/02/23 * PT 11/02/23 [facility] Evaluation + Plan note Future Appointments Appointment Date:12/19/2024 12:40:00 PM Scheduled Provider:SRINIVAS Pereyra Tammy L. Location:[facility] Appointment Type: Open Appointment Date:01/01/2025 02:00:00 PM Scheduled Provider:Rick Hernandez PA-C [facility] Appointment Type:Cardiology Follow Up (FT) [facility] Evaluation + Plan note Future Appointments Appointment Date:01/01/2025 02:00:00 PM Scheduled Provider:Rick Hernandez PA-C [facility] Appointment Type:Cardiology Follow Up (FT) Appointment Date:01/02/2025 01:40:00 PM Scheduled Provider:SRINIVAS Pereyra Tammy L. Location:[facility] Appointment Type: Open Future Scheduled Tests Laboratory* Microalbumin Level Urine 12/19/24 * Urine Microalbumin/Creatinine Ratio 12/19/24 [facility] Evaluation + Plan note Future Appointments Appointment Date:01/02/2025 01:40:00 PM Scheduled Provider:SRINIVAS Pereyra Tammy L. Location:[facility] Appointment Type: Open Appointment Date:01/07/2025 12:30:00 PM Scheduled Provider: [facility] Type:PUL Pulmonary Function Test (FT) Future Scheduled Tests Laboratory* Microalbumin Level Urine 12/19/24 * Urine Microalbumin/Creatinine Ratio 12/19/24 * Basic Metabolic Panel 01/02/25 [facility] evaluation + Plan note Future Appointments Appointment Date:01/07/2025 12:30:00 PM Scheduled Provider: [facility] Appoint[facility] Type:PUL Pulmonary Function Test (FT) Appointment Date:01/29/2025 08:30:00 AM Scheduled Provider:Rick Hernandez PA-C [facility] Appointment Type:Cardiology Follow Up (FT) Appointment Date:02/04/2025 01:40:00 PM Scheduled Provider:SRINIVAS Pereyra Tammy L. Location:[facility] Appointment Type: Open Future Scheduled Tests Laboratory* Basic Metabolic Panel 01/02/25 [facility] evaluation + Plan note Future Appointments Appointment Date:01/29/2025 08:30:00 AM Scheduled Provider:Rick Hernandez PA-C [facility] Appointment Type:Cardiology Follow Up (FT) Appointment Date:02/04/2025 01:40:00 PM Scheduled Provider:SRINIVAS Pereyra Tammy L. Location:[facility] Appointment Type: Open Future Scheduled Tests Laboratory* Basic Metabolic Panel 01/02/25 [facility] evaluation + Plan note Future Appointments Appointment Date:03/05/2025 01:00:00 PM Scheduled Provider:SRINIVAS Pereyra Tammy L. Location:[facility] Appointment Type:FM Open Appointment Date:03/12/2025 01:15:00 PM Scheduled Provider:Rick Hernandez PA-C [facility] Appointment Type:Cardiology Follow Up (FT) Future Scheduled Tests Laboratory* Basic Metabolic Panel 01/02/25 [facility] evaluation + Plan note Future Appointments Appointment Date:03/12/2025 01:15:00 PM Scheduled Provider:Rick Hernandez PA-C [facility] Appointment Type:Cardiology Follow Up (FT) Future Scheduled Tests Laboratory* Basic Metabolic Panel 01/02/25 [facility] [place] Evaluation note* Diagnosis SOB (shortness of breath) Shortness of breath Obstructive sleep apnea syndrome Obstructive sleep apnea (adult) (pediatric) Moderate persistent asthma without complication Unspecified asthma Tobacco abuse Tobacco use disorder documented in this encounter [employer] Phone: [email or web address] note* Diagnosis SOB (shortness of breath) Shortness of breath Obstructive sleep apnea (adult) (pediatric) Moderate persistent asthma without complication Unspecified asthma documented in this encounter [employer] Phone: evaluation note* Diagnosis Hypertension, unspecified type Bilateral leg edema Edema documented in this encounter [employer] Phone: evallqijii note* Diagnosis Onset Date Resolution Status Acute congestive heart failure acute Acute exacerbation of CHF (congestive heart failure) acute Acute respiratory failure with hypoxia acute Chest pain acute Shortness of breath acute [facility] Work Phone: Evaluation note* Diagnosis Onset Date Resolution Status Acute congestive heart failure acute Acute exacerbation of CHF (congestive heart failure) acute Acute respiratory failure with hypoxia acute Chest pain acute COPD with acute exacerbation acute Shortness of breath acute [facility] Work Phone: Evaluation note* Diagnosis Alcohol abuse- Primary Alcohol abuse, unspecified documented in this encounter [employer] Phone: [email or web address] note* Diagnosis Left hand weakness Muscle weakness (generalized) documented in this encounter [employer] Phone: evaluation note* Diagnosis Weakness of both legs Other musculoskeletal symptoms referable to limbs documented in this encounter [employer] Phone: evaluation note* Diagnosis Fatigue, unspecified type Screening, lipid Screening for lipoid disorders documented in this encounter [employer] Phone: [email or web address] note* Diagnosis Right hip pain Pain in joint, pelvic region and thigh documented in this encounter [employer] note* Diagnosis Gastroesophageal reflux disease, unspecified whether esophagitis present- Primary Morbid obesity with BMI of 50.0-59.9, adult BRENDA (obstructive sleep apnea) Obstructive sleep apnea (adult) (pediatric) Type 2 diabetes mellitus without complication, without long-term current use of insulin [facility] N[facility] No data available for this section [facility] [place] [facility] Discharge instructions No data available for this section [facility] Additional Instructions Continue use of CPAP as before.[facility] Work Phone: Hospital Discharge instructions* Attachments The following attachments cannot be sent through Care Everywhere. * Alcohol Intoxication: Acute (Stateless) [facility]: progress note No data available for this section [facility] [place] Reason for referral (narrative) Referred by: Parish PATE [facility] [place] Reraep for referral (narrative) Referred by: Lupis SCHWARTZ MD, FAAFP Referred by: Lupis SCHWARTZ MD, FAAFP [facility] [place] Regtji for referral (narrative) , colonscopy, hx of polyps Referred by: Yocasta SMITH, MASTER SCHEDULER-Myron VILLATORO [facility] [place] Reason for referral (narrative) , X-ray tonight, failed PT Referred by: Yocasta SMITH, MASTER SCHEDULER-CERTIFIED CODERMyron [facility] Assessments Diagnosis Syncope and collapse Pre-operative [...] Abdominal pain, right lower quadrant Advance Directives Documents on File Type Date Recorded Patient Javascript Software Engineer Expl anation Advance Directives and Living Will Power of Eating Disorder Psychologist Latest Code Status on File Code Status Date Activated Date Inactivated Comments Full Code 06/18/2018 1:23 PM 06/19/2018 8:22 PM Full Code 04/26/2018 5:22 PM 04/27/2018 1:14 PM Full Code 04/26/2018 11:04 AM 04/26/2018 5:16 PM Full Code 03/15/2018 1:38 PM 03/16/2018 3:51 PM Full Code 03/15/2018 8:18 AM 03/15/2018 1:38 PM Documents on File Type Date Recorded Patient Javascript Software Engineer Expl anation Advance Directives and Living Will Power of Eating Disorder Psychologist Latest Code Status on File Code Status Date Activated Date Inactivated Comments Full Code 06/18/2018 1:23 PM 06/19/2018 8:22 PM Full Code 04/26/2018 5:22 PM 04/27/2018 1:14 PM Full Code 04/26/2018 11:04 AM 04/26/2018 5:16 PM Full Code 03/15/2018 1:38 PM 03/16/2018 3:51 PM Full Code 03/15/2018 8:18 AM 03/15/2018 1:38 PM Documents on File Type Date Recorded Patient Javascript Software Engineer Expl anation ACP-Advance Directive ACP-Power of Eating Disorder Psychologist Latest Code Status on File Code Status Date Activated Date Inactivated Comments Full Code 03/17/2020 11:39 AM Full Code 03/17/2020 8:35 AM 03/17/2020 11:39 AM Full Code 06/18/2018 1:23 PM 06/19/2018 8:22 PM Documents on File Type Date Recorded Patient Javascript Software Engineer Expl anation ACP-Advance Directive ACP-Power of Eating Disorder Psychologist Latest Code Status on File Code Status [...] Procedures EKG 12 Lead Joselito Hsu MD [address] [place] [address] Status Reason Specialty Diagnoses / Procedures Referred By Contact Referred To Contact Not Required - [facility] Pulmonary Function Testing Diagnoses SOB (shortness of breath) Procedures Full PFT Study With Bronchodilator HC BEFORE / AFTER BRONCHODILATOR Joselito Hsu MD [address] [place] [address] [facility] [address] [place] [id number] Status Reason Specialty Diagnoses / Procedures Referred By Contact Referred To Contact Pending Review Radiology Diagnoses Hypertrophy of uterus Right lower quadrant pain Procedures US NON OB TRANSVAGINAL Mulu Dean APRN [facility] [address] [place] [address] Status Reason Specialty Diagnoses / Procedures Referre d By Contact Referred To Contact Open Radiology Diagnoses Hypertrophy of uterus Right lower quadrant pain Procedures US PELVIS COMPLETE Mulu Dean [address] [place] [address] Status Reason Specialty Diagnoses / Procedures Referre d By Contact Referred To Contact Open Radiology Diagnoses RLQ abdominal pain Procedures CT ABDOMEN PELVIS W IV CONTRAST Additional Contrast? Oral Mulu Dean APRN [address] [place] [address] Specialty Diagnoses / Procedures Referred By Contac Referred To Contact Diagnoses SOB (shortness of breath) Obstructive sleep apnea syndrome Moderate persistent asthma without complication Tobacco abuse Procedures Full PFT Study With Bronchodilator Mulu Dean [address] [place] [address] Referral ID Status Reason Start Date Expiration Date V isits Requested Visits Authorized [id number] Pending Review 05/15/2021 05/14/2022 1 1 Specialty Diagnoses / Procedures Referred By Contac t Referred To Contact Cardiology Diagnoses Hypertension, unspecified type Bilateral leg edema I10 (ICD-10-CM) - Hypertension, unspecified type Procedures Echocardiogram complete [place] ECHO TTHRC R-T 2D W/WOM-MODE COMPL SPEC&COLR D 32159 - [place] ECHO TTHRC R-T 2D W/WOM-MODE COMPL SPEC&COLR D Lupis Schwartz MD [address] [place] [address] Referral ID Status Reason Start Date Expiration Date Visits Re quested Visits Authorized [id number] Closed 08/25/2022 08/20/2023 1 1 Discharge Instructions [...] one drug, even if it is an cnvf-brs-jefoviy medication, herb, or dietary supplement, be sure [...] / AFTER BRONCHODILATOR Joselito Hsu MD [address] [place] [address] [facility] [address] [place] [address] Status Reason Specialty Diagnoses / Procedures Referred By Contact Referred To Contact Pending Review Radiology Diagnoses Hypertrophy of uterus Right lower quadrant pain Procedures HC US PELVIS COMPLETE Mulu Dean APRN - CERTIFIED CODER [address] [place] [address] [facility] [address] [place] [address] Status Reason Specialty Diagnoses / Procedures Re ferred By Contact Referred To Contact Diagnoses Right lower quadrant abdominal pain Weight gain RIGHT LOWER ABDOMINAL PAIN, WEIGHT GAIN Procedures NJ COLONOSCOPY FLX DX W/COLLJ SPEC WHEN PFRMD [place] ESOPHAGOGASTRODUODENOSCOPY TRANSORAL DIAGNOSTIC COLONOSCOPY EGD ESOPHAGOGASTRODUODENOSCOPY Glenn Malik MD [address] [facility] [address] [place] [address] [facility] Status Reason Specialty Diagnoses / Procedures Referre d By Contact Referred To Contact Closed Radiology Diagnoses Right lower quadrant pain Procedures CT ABDOMEN PELVIS W CONTRAST Mulu Dean APRN [facility] [address] [place] [address] [place] [address] Specialty Diagnoses / Procedures Referred By Contac Referred To Contact Diagnoses SOB (shortness of breath) Obstructive sleep apnea syndrome Moderate persistent asthma without complication Tobacco abuse Procedures Full PFT Study With Bronchodilator Mulu Dean APRN - CERTIFIED CODER [address] [place] [address] Referral ID Status Reason Start Date Expiration Date V isits Requested Visits Authorized [id number] Pending Review 05/15/2021 05/14/2022 1 1 Reason Comments Education Class Specialty Diagnoses / Procedures Referred By Contac t Referred To Contact Cardiology Diagnoses Hypertension, unspecified type Bilateral leg edema I10 (ICD-10-CM) - Hypertension, unspecified type Procedures Echocardiogram complete [place] [facility] R-T 2D W/WOM-MODE COMPL SPEC&COLR D [id number] - [place] [facility] R-T 2D W/WOM-MODE COMPL SPEC&COLR D Lupis Schwartz MD [address] [place], [place] [address] Referral ID Status Reason Start Date Expiration Date Visits Re quested Visits Authorized [id number] Closed 08/25/2022 08/20/2023 1 1 Reason Comments Chest Pain Chest pain, SOB x1 d ay patient states this started after had 2 bottles of rum today Specialty Diagnoses / Procedures Referred By Contac t Referred To Contact Radiology Diagnoses Fatigue, unspecified type Screening, lipid Procedures VL DUP LOWER EXTREMITY VENOUS BILATERAL US DUP LOWER EXTREMITIES BILATERAL VENOUS SelinaCarmen gipson Tracy, DO [address] [place] [address] Referral ID Status Reason Start Date Expiration Date Visits Re quested Visits Authorized [id number] Open 11/17/2022 11/17/2023 1 1 Reason Comments New Patient Carmen is interested in bariatric surgery for weight loss and improvement of comorbid conditions. Specialty Diagnoses / Procedures Referred By Contac t Referred To Contact Multispecialty Diagnoses Morbid obesity with BMI of 50.0-59.9, adult BRENDA (obstructive sleep apnea) Type 2 diabetes mellitus with morbid obesity Benign hypertension [facility] [address] [place] [address] Phone: tel: Coco Dean MD [address] [place] [address] Phone: tel: Referral ID Status Reason Start Date Expiration Date V isits Requested Visits Authorized [id number] Pending Review 09/28/2024 10/23/2025 1 1 Care Teams (unrecognized sec tion and content) Personnel Name: Yocasta SMITH, MASTER SCHEDULER-CERTIFIED CODERMyron Address: [address], [place] [address] Telecom: Car Racer Relationship Specialty Start Date End Date Mulu Dean APRN - CNP [address] [place] [address] PCP - General Family Medicine 02/17/17 Car Racer Relationship Specialty Start Date End Date Mulu Dean APRN - CNP [address] [place] [address] PCP - General Family Medicine 02/17/17 Car Racer Relationship Specialty Start Date End Date Mulu Dean MASTER SCHEDULER - CERTIFIED CODER [address] [place] [address] PCP - General Family Medicine 02/17/17 Car Racer Relationship Specialty Start Date End Date Mulu Dean MASTER SCHEDULER - CERTIFIED CODER [address] [place] [address] PCP - General Family Medicine 02/17/17 Car Racer Relationship Specialty Start Date End Date Mulu Dean MASTER SCHEDULER - CERTIFIED CODER [address] [place] [address] PCP - General Family Medicine 02/17/17 Car Racer Relationship Specialty Start Date End Date Mulu Dean MASTER SCHEDULER - CERTIFIED CODER [address] [place] [address] PCP - General Family Medicine 02/17/17 Car Racer Relationship Specialty Start Date End Date Mulu Dean, MASTER SCHEDULER - CERTIFIED CODER [address] [place] [address] PCP - General Family Medicine 02/17/17 Team Status: Active Member Role Status Dates NON STAFF Primary Care Provider Active Team Status: Active Member Role Status Dates NON STAFF Primary Care Provider Active Joo Ramos DO Emergency Provider Active Marilyn Sun MD Admit Provider, Attending Provi marty Active Team Status: Active Member Role Status Dates Lupis Schwartz MD Primary Care Provider Active Team Status: Inactive Member Role Status Dates Joo Ramos DO Emergency Provider Active Marilyn Sun MD Admit Provider Active José Sanchez MD Attending Provider Active Lupis Schwartz MD Primary Care Provider Active Car Racer Relationship Specialty Start Date End Date Mulu Dean, MASTER SCHEDULER - CERTIFIED CODER [address] [place] [address] PCP - General Family Medicine 02/17/17 Car Racer Relationship Specialty Start Date End Date Mulu Dean APRN - CERTIFIED CODER [address] [place] [address] PCP - General Family Medicine 02/17/17 Car Racer Relationship Specialty Start Date End Date Mulu Dean APRN - CERTIFIED CODER [address] [place] [address] PCP - General Family Medicine 02/17/17 Car Racer Relationship Specialty Start Date End Date Mulu Dean APRN - CNP PCP - General Family Medicine 02/17/17 Car Racer Relationship Specialty Start Date End Date Myron Rust APRN - [place] [address] [place], [place] [id number] PCP - General Nurse Practitioner [facility] 04/29/23 Car Racer Relationship Specialty Start Date End Date Myron Rust APRN - CNP [address] [place] [address] PCP - General Nurse Practitioner Family 04/29/23 Car Racer Relationship Specialty Start Date End Date Myron Rust APRN - CNP [address] [place], [place] [id number] PCP - General Nurse Practitioner Family 04/29/23 Car Racer Relationship Specialty Start Date End Date Myron Rust CNP [address] [place] [address] PCP - General Nurse Practitioner - Family 11/07/24 Goals (unrecognized section and content) Goals may be documented in a n alternate section INFORMATION SOURCE (unrecogn ized section and content) DATE CREATED AUTHOR 09/18/2022 [facility] DATE CREATED AUTHOR AUTHOR'S ORGANIZ ATION 02/10/2023 [facility] DATE CREATED AUTHOR AUTHOR'S ORGANIZ ATION 09/01/2023 [facility] DATE CREATED AUTHOR AUTHOR'S ORGANIZ ATION 12/23/2023 [facility] DATE CREATED AUTHOR AUTHOR'S ORGANIZ ATION 07/18/2024 [facility] DATE CREATED AUTHOR AUTHOR'S ORGANIZ ATION 09/06/2024 [facility] DATE CREATED AUTHOR AUTHOR'S ORGANIZ ATION 09/15/2024 [facility] DATE CREATED AUTHOR AUTHOR'S ORGANIZ ATION 12/21/2024 [facility] DATE CREATED AUTHOR AUTHOR'S ORGANIZ ATION 12/23/2024 [facility] DATE CREATED AUTHOR AUTHOR'S ORGANIZ ATION 12/27/2024 [facility] DATE CREATED AUTHOR AUTHOR'S ORGANIZ ATION 12/28/2024 [facility] DATE CREATED AUTHOR AUTHOR'S ORGANIZ ATION 12/29/2024 [facility] DATE CREATED AUTHOR AUTHOR'S ORGANIZ ATION 12/30/2024 [facility] DATE CREATED AUTHOR AUTHOR'S ORGANIZ ATION 01/03/2025 [facility] DATE CREATED AUTHOR AUTHOR'S ORGANIZ ATION 01/04/2025 [facility] DATE CREATED AUTHOR AUTHOR'S ORGANIZ ATION 01/06/2025 [facility] DATE CREATED AUTHOR AUTHOR'S ORGANIZ ATION 01/13/2025 [facility] DATE CREATED AUTHOR AUTHOR'S ORGANIZ ATION 01/25/2025 [facility] DATE CREATED AUTHOR AUTHOR'S ORGANIZ ATION 01/31/2025 [facility] DATE CREATED AUTHOR AUTHOR'S ORGANIZ ATION 02/06/2025 [facility] DATE CREATED AUTHOR AUTHOR'S ORGANIZ ATION 02/21/[address] [facility] DATE CREATED AUTHOR AUTHOR'S ORGANIZ ATION 03/04/2025 [facility] Scheduled Active [...] BE BASED ON THE PRIMARY CLINICAL RECORDS. [employer] [facility]. provides no warranty or guarantee of the accuracy or completeness of information in this document.
== END 2025-03-06 12:34 | disposition home or self-care (01) ==
LOC: MRI 12:33
PROVIDERS: Visit Provider Nurse Practitioner
DX: M48.062 Spinal stenosis, lumbar region with neurogenic claudication (principal); M51.369 Other intervertebral disc degeneration, lumbar region without mention of lumbar back pain or lower extremity pain
CPT/HCPCS: 72148

== ENCOUNTER 2025-04-11 14:57 | Outpatient (OUT) | payer OTHER, SELFPAY ==
--- OUTSIDE RECORDS SUMMARY | 2025-04-11 15:04 | XMS_ITS | CCD ---
Author Organization [facility] Inform ion [facility] Care Team Providers Care Rig Operator Name Role Phone Mulu Dean Primary Care Provider Mulu DEAN Primary Care Physician [phone] Myron Rust Primary Care Physician Jermaine MOREJON - BUFFER OPERATOR, Mulu Primary Care Pro vider NON STAFF Primary Care Provider Unavailabl e DO Joo Ramos Emergency Provider MD Marilyn Sun Admit Provider MD Marilyn Sun Attending Provider DO Joo Ramos Emergency Provider MD Marilyn Sun Admit Provider MD José Sanchez Attending Provider MD Lupis Schwartz Primary Care Provider Marilyn Sun Admitting Unavailable José Sanchez Attending Unavailable Lupis Schwartz Primary Care Unavailable Lupis SCHWARTZ Primary Care Physician Jermaine HEATER OPERATOR HELPER - BUFFER OPERATOR, Mulu Primary Care Pro vider Yocasta MOREJON - Myron VILLATORO Primary Care Provider MYRON RUST Referring Unavailable MYRON RUST Primary Care Unavailable Myron Rust Primary Care Physician KAMALJIT MENENDEZ Attending Unavailable KAMALJIT MENENDEZ Referring Unavailable YOCASTA, MYRON Primary Care Unavailable ALIRIO RAMIREZ Referring Unavailab le YOCASTA, MYRON Primary Care Unavailable MEGHAN, MIHIR Referring Unavailable YOCASTA, MYRON Primary Care Unavailable MENENDEZKAMALJIT Referring Unavailable YOCASTA, MYRON Primary Care Unavailable YOCASTA, MYRON Referring Unavailable YOCASTA, MYRON Primary Care Unavailable YOCASTA, MYRON Referring Unavailable YOCASTA, MYRON Primary Care Unavailable YOCASTA, MRYON Referring Unavailable YOCASTA, MYRON Primary Care Unavailable MEGHAN, MIHIR Referring Unavailable YOCASTA, MYRON Primary Care Unavailable MEGHAN, MIHIR Referring Unavailable YOCASTA, MYRON Primary Care Unavailable YOCASTA, MYRON Primary Care Unavailable LYNSEY, VESELIN Attending Unavailable LYNSEY, VESELIN Attending Unavailable YOCASTA, MYRON Primary Care Unavailable MEGHAN, MIHIR Referring Unavailable YOCASTA, MYRON Primary Care Unavailable Yocasta, MSN, HEATER OPERATOR HELPER-BUFFER OPERATOR Myron Hamilton Attending U jesika Rust, MSN, HEATER OPERATOR HELPER-BUFFER OPERATOR Myron Hamilton Admitting U jesika CARBAJAL, XXXX Referring Unavailable Alirio Ramirez Attending Unavaila AISHA Enriquez Attending Unavailable NONE, XXXX Referring Unavailable Walker Phillip Talal Admitting Unavaila Walker Wesley Attending Unavaila Walker Wesley Referring Unavaila Alirio Brandon Consulting Unavaila Alirio Brandon Attending Unavaila Alirio Brandon Referring Unavaila Alirio Brandon Admitting Unavaila MD Alirio Brandon Consulting Unava ilAlirio Bird Consulting Unavaila ble Walker Phillip Attending Unavaila ble Walker Phillip Attending Unavaila caroline Rust, MSN, HEATER OPERATOR HELPER-IRVING Hamilton Attending U jesika Rust, MSN, HEATER OPERATOR HELPER-IRVING Hamilton Attending U jesika Rust, MSN, HEATER OPERATOR HELPER-BUFFER OPERATOR Myron Hamilton Attending U jesika Rust, MSN, HEATER OPERATOR HELPER-IRVING Hamilton Attending U jesika Rust, MSN, HEATER OPERATOR HELPER-BUFFER OPERATOR Myron Hamilton Attending U Alirio Ennis Attending Unavaila ble NONE, XXXX Referring Unavailable YocastaMyron pugh CNP Primary Care Provider Yocasta, Myron L. Attending Unavailable Yocasta, Myron L. Attending Unavailable Yocasta, Myron L. Attending Unavailable Yocasta, Myron L. Admitting Unavailable Yocasta, MSN, HEATER OPERATOR HELPER-BUFFER OPERATOR Myron L. Admitting U navailable Yocasta, MSN, HEATER OPERATOR HELPER-BUFFER OPERATOR Myron Machado. Attending U navailable Whit Simms H Attending [...] Yocasta, Myron L. Attending Unavailable Yocasta, MSN, HEATER OPERATOR HELPER-BUFFER OPERATOR Myron L. Admitting U navailable Yocasta, MSN, HEATER OPERATOR HELPER-BUFFER OPERATOR Myron L. Attending U navailable Yocasta, Myron [...] Yocasta, Myron L. Attending Unavailable Giedraitis , Andrius Hunt Attending Unavailable Giedraitis , Andrius Gilbert Attending Unavailable Rosiitis , Andrius Hunt Attending Unavailable Spencer SAMPSON, Andrius Vytbrant Attending Unavailable Giedraitis , Calvin Hunt Attending Unavailable Glenn Perkins DO Attending Provider Myron Bruce Primary Care Provider [phone] NONE, XXXX Referring Unavailable Rick Hernandez Attending Unavailable NONE, XXXX Referring Unavailable Rick Hernandez Attending Unavailable Oneal Newman Attending Unavailable Myron Rust Attending Unavailable Myron Rust Attending Unavailable Allergies Allergy Classification Reported Allergen(s) Allergy Type Date of Onset Reaction(s) Facility amLODIPine (1 source) amLODIPine; Translations: [amlodipine] Drug Allergy Leg Edema [facility] Angiotensin Converting Enzyme (DESMOND) Inhibitors (1 source) Lisinopril; Translations: [lisinopril] Drug Allergy Persistent cough (finding), Tongue swelling (finding) [facility] metFORMIN (1 source) metFORMIN; Translations: [metformin] Drug Allergy Diarrhea (finding) [facility] (20 sources) amLODIPine; Translations: [amlodipine] Drug Allergy 5 Leg Edema [facility] (20 sources) Lisinopril; Translations: [lisinopril] Drug Allergy Persistent cough (finding), Tongue swelling (finding) [facility] (20 sources) metFORMIN; Translations: [metformin] Drug Allergy 5 Diarrhea (finding), Diarrhea [facility] (13 sources) No Known Medication Allergies; Translations: [No Known Medication Allergies] Propensity to adverse reactions (disorder) [facility] Repository Medications Current Medications Medication Drug Class(es) Dates Sig (Normalized) Sig (Original) 0.25 MG, 0.5 MG Dose 3 ML semaglutide 0.68 MG/ML Pen Injector [Ozempic] (4 sources) Start: 07-18-2024 inject 0.5 mg by subcutaneous injection every week Ozempic 2 mg/3 mL (0.25 mg or 0.5 mg dose) subcutaneous solution 0.5 mg, SubCutaneous, qWeek, # 2 EA, Refills(s) 0, Pharmacy: [facility] #[id number], 168, cm, 07/18/24 11:59:00 EST, Height/Length Dosing, 148.4, kg, 07/18/24 11:59:00 EST, Weight Dosing Start Date: 07/18/24 Status: Ordered Advair HFA 115 mcg-21 mcg/inh inhalation aerosol with adapter (3 sources) Start: 01-29-2025 take 2 puff(s) by inhalation twice daily Advair HFA 115 mcg-21 mcg/inh inhalation aerosol with adapter 2 puff(s), Inhalation, BID, 8 gm, Refill(s) 1, [facility] #[facility], 168, cm, 01/29/25 8:19:00 EDT, Height/Length Dosing, 159, kg, 01/24/25 8:55:00 EDT, Weight Dosing Start Date: 01/29/25 Status: Ordered Quantity: 8.0 Unit: g Repeat number: 2 Indications: Moderate persistent asthma, uncomplicated; albuterol 0.83 mg/ml inhalation solution (20 sources) beta2-Adrenergic Agonist Start: 04-09-2025 take 2.5 mg by inhalation every six hours albuterol 0.083% Inh Rochelle 3 mL 2.5 mg, 3 mL, NEB, q6hr Shortness of breath or wheezing, 100 EA, Refill(s) 1, [facility] #16, 168, cm, 04/09/25 11:43:00 EDT, Height/Length Dosing, 160.8, kg, 04/09/25 11:43:00 EDT, Weight Dosing Start Date: 04/09/25 Status: Ordered Quantity: 100.0 Unit: EA Repeat number: 2 Indications: Moderate persistent asthma, uncomplicated; Start: 10-11-2023 take 2.5 mg by inhal ation every six hours albuterol 0.083% Inh Rochelle 3 mL 2.5 mg, 3 mL, Inhalation, q6hr Shortness of breath or wheezing, 100 EA, Refill(s) 1, [facility] #[id number], 168, cm, 10/11/23 14:32:00 EDT, Height/Length Dosing, [...] Albuterol (Eqv-Ventolin HFA) 90 mcg/inh inhalation aerosol (12 sources) Start: 04-09-2025 take 2 puff(s) by inhalation every six hours Albuterol (Eqv-Ventolin HFA) 90 mcg/inh inhalation aerosol 2 puff(s), Inhalation, q6hr Shortness of breath or wheezing, 6.7 gm, Refill(s) 1, [facility] #16, 168, cm, 04/09/25 11:43:00 EDT, Height/Length Dosing, 160.8, kg, 04/09/25 11:43:00 EDT, Weight Dosing Start Date: 04/09/25 Status: Ordered Quantity: 6.7 Unit: g Repeat number: 2 Indications: Chronic obstructive pulmonary disease with (acute) exacerbation; Start: 12-29-2024 take 2 puff(s) by in halation every six hours Albuterol (Eqv-Ventolin HFA) 90 mcg/inh inhalation aerosol 2 puff(s), Inhalation, q6hr Shortness of breath or wheezing, 6.7 gm, Refill(s) 1, [email or web address] #[id number], 168, cm, 12/27/24 10:40:00 EDT, Height/Length [...] breath or wheezing, 6.7 gm, Refill(s) 3, [facility] #[id number], 168, cm, 11/27/24 14:20:00 EDT, Height/Length Dosing, 159.8, kg, 11/27/24 14:20:00 EDT, Weight Dosing Start Date: 11/27/24 Status: Ordered Quantity: 6.7 Unit: g Repeat number: 4 Alcohol wipes (20 sources) Start: 04-13-2022 Alcohol wipes Alcohol wipes, See Instructions, 100 EA, 3, Use to check BS daily dx E11.9, [facility] #[id number], Supply, 163, cm, 12/30/21 11:09:00 EDT, Height/Length Dosing, 154, kg, 12/30/21 11:09:00 EDT, Weight Dosing Start Date: 04/13/22 Status: Ordered Quantity: 100.0 Unit: EA Repeat number: 4 Start: 04-13-2022 Alcohol wipes Alcohol wipes, See Instructions, 100 EA, 3, Use to check BS daily dx E11.9, [facility] #[id number], Supply, 163, cm, 12/30/21 11:09:00 EDT, Height/Length Dosing, 154, kg, 12/30/21 11:09:00 EDT, Weight Dosing Start Date: 04/13/22 Status: Ordered Start: 06-03-2021 Alcohol wipes Alcohol wipes, See Instructions, 300 EA, 3, Use to check BS TID and PRN dx E11.9, [facility], Supply, 170, cm, 05/27/21 8:31:00 EST, Height/Length Dosing, 157.8, kg, 05/27/21 8:31:00 EST, Weight Dosing Start Date: 06/03/21 Status: Ordered amoxicillin 875 mg / clavulanate 125 mg oral tablet (1 source) Penicillin-class Antibacterial Start: 04-09-2025 End: 04-16-2025 Augmentin 875 mg-125 mg Tab 1 tab(s), Oral, q12hr for 7 day(s), 14 tab(s), Refill(s) 0, [facility], 168, cm, 04/09/25 11:43:00 EDT, Height/Length Dosing, 160.8, kg, 04/09/25 11:43:00 EDT, Weight Dosing Start Date: 04/09/25 Stop Date: 04/16/25 Status: Ordered Quantity: 14.0 Unit: tab(s) Repeat number: 1 ARIPiprazole 5 mg oral tablet (20 sources) Atypical Antipsychotic Start: 02-22-2024 take 1 tablet by mouth once daily Abilify 5 mg Tab 5 mg = 1 tab(s), Oral, Daily, # 90 tab(s), Refills(s) 4, Pharmacy: [facility] #[id number], 167, cm, 02/22/24 13:09:00 EDT, Height/Length Dosing, 137, kg, 02/22/24 13:09:00 EDT, Weight Dosing Start Date: 05/07/24 Status: Ordered Quantity: 90.0 Unit: tab(s) Repeat number: 5 Start: 12-30-2021 take 1 tablet by manish th once daily Abilify 2 mg Tab 2 mg = 1 tab(s), Oral, Daily, # 90 tab(s), Refills(s) 3, Pharmacy: [facility] #[id number], 167.6, cm, 12/23/23 10:59:00 EDT, Height/Length Dosing, 136, kg, 12/23/23 10:59:00 EDT, Weight Dosing Start Date: 01/19/24 Status: Ordered ARIPiprazole (AB ILIFY PO) Abilify 0 Active atorvastatin 80 mg oral tablet (20 sources) HMG-CoA Reductase Inhibitor take 1 tablet by mouth once daily atorvastatin 80 MG tablet Take 1 tablet by mouth Every night. Active azithromycin 250 mg oral tablet (1 source) Macrolide Antimicrobial Start: 025 End: 025 take 1 tablet by mouth once daily azithromycin 250 mg Tab 250 mg = 1 tab(s), Oral, Daily, X 3 day(s), # 3 tab(s), Refills(s) 0, Pharmacy: [facility], 168, cm, 12/27/24 10:40:00 EDT, Height/Length [...] 1 EA, 0, Use at home daily, [facility], Supply, 170, cm, 10/02/19 13:41:00 EDT, Height/Length Measured, 156, kg, 10/02/19 13:41:00 EDT, Weight Measured Start Date: 10/02/19 Status: Ordered 24 hr buPROPion hydrochloride 150 mg extended release oral tablet (3 sources) Aminoketone Start: take 1 tablet by mouth every twenty-four hours buPROPion 150 mg/24 hours XL Tab 150 mg = 1 tab(s), Oral, q24hr, # 30 tab(s), Refills(s) 0, Pharmacy: [facility] #16, 168, cm, 02/04/25 13:39:00 EDT, Height/Length [...] capsule (3 sources) Nonsteroidal Anti-inflammatory Drug Start: 023 take 1 capsule by mouth twice daily as needed for pain CeleBREX 200 mg Cap 200 mg = 1 cap(s), Oral, BID, PRN as needed for pain, with food, # 60 cap(s), Refills(s) 0, Pharmacy: [facility] #[id number], 167, cm, 05/09/23 8:15:00 EST, Height/Length Dosing, 145.6, kg, 05/09/23 8:15:00 EST, Weight Dosing Start Date: 05/09/23 Status: Ordered cephalexin 500 mg oral capsule (4 sources) Cephalosporin Antibacterial Start: End: 025 take 1 capsule by mouth four times daily cephalexin 500 mg Cap 500 mg = 1 cap(s), Oral, QID, X 8 day(s), # 32 cap(s), Refills(s) 0, Pharmacy: [facility]16, 168, cm, 12/27/24 10:40:00 EDT, Height/Length [...] mg oral capsule (7 sources) Anticholinergic Start: 025 take 2 capsules by mouth four times daily as needed for pain Bentyl 10 mg Cap 20 mg = 2 cap(s), Oral, QID, PRN Pain, # 21 cap(s), Refills(s) 0, Pharmacy: [facility] #[id number], 168, cm, 07/11/24 11:16:00 EST, Height/Length Dosing, 152.8, kg, 07/11/24 11:21:00 EST, Weight Dosing Start Date: 07/11/24 Status: Ordered Dulaglutide (20 sources) GLP-1 Receptor Agonist Start: Dulaglutide (Trulicity) 3 mg/0.5 mL pen injector Active MG SUBCUT April 03, 2025 12:00am Complies with drug therapy Start: 04-01-2025 inject 3 mg by subcu taneous injection every week Trulicity Pen 3 mg/0.5 mL subcutaneous solution See Instructions, inject 3 (THREE) mg under the skin EVERY week, # 2 mL, Refills(s) 3, Pharmacy: [facility] #16, 168, cm, 03/12/25 13:02:00 EDT, Height/Length Dosing, 154.2, kg, 03/12/25 13:02:00 EDT, Weight Dosing Start Date: 04/01/25 Status: Ordered Quantity: 2.0 Unit: mL Repeat number: 1 Start: 02-25-2025 inject 3 mg by subcu taneous injection every week Trulicity Pen 3 mg/0.5 mL subcutaneous solution See Instructions, INJECT 3 (THREE) MG UNDER THE SKIN EVERY WEEK., # 2 mL, Refills(s) 0, Pharmacy: [facility] #16, 168, cm, 02/04/25 13:39:00 EDT, Height/Length Dosing, 155.1, kg, 02/04/25 13:39:00 EDT, Weight Dosing Start Date: 02/25/25 Status: Ordered Quantity: 2.0 Unit: mL Repeat number: 1 Start: 01-29-2025 inject 3 mg by subcu taneous injection every week Trulicity Pen 3 mg/0.5 mL subcutaneous solution See Instructions, ADMINISTER 3 MG UNDER THE SKIN EVERY WEEK, # 2 mL, Refills(s) 0, Pharmacy: [facility] #16, 168, cm, 01/29/25 8:19:00 EDT, Height/Length Dosing, 159, kg, 01/24/25 8:55:00 EDT, Weight Dosing Start Date: 01/29/25 Status: Ordered Quantity: 2.0 Unit: mL Repeat number: 1 Start: 12-17-2024 inject 3 mg by subcu taneous injection every week Trulicity Pen 3 mg/0.5 mL subcutaneous solution See Instructions, ADMINISTER 3 MG UNDER THE SKIN EVERY WEEK, # 2 mL, Refills(s) 0, Pharmacy: [facility] #[id number], 168, cm, 11/27/24 14:20:00 EDT, Height/Length Dosing, 159.8, kg, 11/27/24 14:20:00 EDT, Weight Dosing Start Date: 12/17/24 Status: Ordered Quantity: 2.0 Unit: mL Repeat number: 1 Start: 10-01-2024 inject 3 mg by subcu taneous injection every week Trulicity Pen 3 mg/0.5 mL subcutaneous solution 3 mg, SubCutaneous, qWeek, # 2 mL, Refills(s) 2, Pharmacy: [facility] #[id number], 168, cm, 09/12/24 13:00:00 EDT, Height/Length Dosing, 154.1, kg, 09/12/24 13:00:00 EDT, Weight Dosing Start Date: 10/01/24 Status: Ordered Quantity: 2.0 Unit: mL Repeat number: 3 Indications: Type 2 diabetes mellitus with other specified complication; Start: 02-22-2024 inject 3 mg by subcu taneous injection every week Trulicity Pen 3 mg/0.5 mL subcutaneous solution 3 mg, SubCutaneous, qWeek, # 4 EA, Refills(s) 2, Pharmacy: [facility] #[id number], 167, cm, 02/22/24 13:09:00 EDT, Height/Length Dosing, 137, kg, 02/22/24 13:09:00 EDT, Weight Dosing Start Date: 02/22/24 Status: Ordered Start: 01-17-2024 Trulicity Pen 1.5 mg/0.5 mL subcutaneous solution See Instructions, inject 1 AND 1/2 milligrams subcutaneously weekly, # 2 mL, Refills(s) 0, Pharmacy: [facility] #[id number], 167.6, cm, 12/23/23 10:59:00 EDT, Height/Length Dosing, 136, kg, 12/23/23 10:59:00 EDT, Weight Dosing Start Date: 01/17/24 Status: Ordered Start: 12-22-2023 inject 1.5 mg by sub cutaneous injection every week Trulicity Pen 1.5 mg/0.5 mL subcutaneous solution 1.5 mg, SubCutaneous, qWeek, # 4 EA, Refills(s) 0, Pharmacy: [facility] #[id number], 168, cm, 12/06/23 14:55:00 EDT, Height/Length Dosing, 139, kg, 12/06/23 14:55:00 EDT, Weight Dosing Start Date: 12/22/23 Status: Ordered Start: 10-11-2023 inject 1.5 mg by sub cutaneous injection every week Trulicity Pen 1.5 mg/0.5 mL subcutaneous solution 1.5 mg, SubCutaneous, qWeek, # 4 EA, Refills(s) 0, Pharmacy: [facility] #[id number], 168, cm, 10/11/23 14:32:00 EDT, Height/Length Dosing, 160.2, kg, 10/11/23 14:32:00 EDT, Weight Dosing Start Date: 10/11/23 Status: Ordered Start: 09-13-2022 Dulaglutide 0. 75 MG/0.5ML SOPN Inject 0.75 mg into the skin 0 09/13/2022 Active empagliflozin 10 mg oral tablet (20 sources) Sodium-Glucose Cotransporter 2 Inhibitor Start: 01-29-2025 take 1 tablet by mouth once daily Empagliflozin (Jardiance) 10 mg tablet Active 10 MG PO Daily April 03, 2025 12:00am Complies with drug therapy Start: 09-22-2022 take 1 tablet by manish th once daily Jardiance 10 mg oral tablet 10 mg, Oral, Daily, # 90 tab(s), Refills(s) 4, Pharmacy: [facility] #[id number], 168, cm, 09/12/24 13:00:00 EDT, Height/Length Dosing, 154.1, kg, 09/12/24 13:00:00 EDT, Weight Dosing Start Date: 10/26/24 Status: Ordered Quantity: 90.0 Unit: tab(s) Repeat number: 5 FLUoxetine 20 mg oral capsule (20 sources) Serotonin Reuptake Inhibitor Start: 09-10-2022 take 40 mg by mouth once daily Fluoxetine Active 40 MG PO Daily September 10, 2022 1:00am Start: 04-07-2021 take 2 capsules by m outh once daily FLUoxetine 20 mg Cap 40 mg = 2 cap(s), Oral, Daily, # 180 cap(s), Refills(s) 4, Pharmacy: [facility] #16, 168, cm, 01/29/25 8:19:00 EDT, Height/Length Dosing, 159, kg, 01/24/25 8:55:00 EDT, Weight Dosing Start Date: 01/29/25 Status: Ordered Quantity: 180.0 Unit: cap(s) Repeat number: 5 take 1 capsule by mo ut once daily FLUoxetine (PROZAC) 40 MG capsule Take 1 capsule by mouth nightly 0 Active fluticasone propionate 0.05 mg/actuat metered dose nasal spray (1 source) Corticosteroid Start: 04-09-2025 Flonase 0.05 mg/inh [place] 2 spray(s), Nasal, Daily, 16 gram, Refill(s) 0, each nostril, [facility], 168, cm, 04/09/25 11:43:00 EDT, Height/Length Dosing, 160.8, kg, 04/09/25 11:43:00 EDT, Weight Dosing Start Date: 04/09/25 Status: Ordered Quantity: 16.0 Unit: g Repeat number: 1 fluticasone / salmeterol (20 sources) Corticosteroid, beta2-Adrenergic Agonist Start: 11-27-2024 End: 12-27-2024 take 1 puff(s) by inhalation twice daily Advair Diskus 250 mcg-50 mcg inhalation powder 1 puff(s), Inhalation, BID for 30 day(s), 60 blister(s), Refill(s) 0, [facility] #[id number], 168, cm, 11/27/24 14:20:00 EDT, Height/Length Dosing, 159.8, kg, 11/27/24 14:20:00 EDT, Weight Dosing Start Date: 11/27/24 Stop Date: 12/27/24 Status: Ordered Quantity: 60.0 Unit: blister(s) Repeat number: 1 Start: 09-16-2022 Fluticasone-Sa lmeterol (ADVAIR DISKUS IN) See Instructions, Refill(s) 0 0 09/16/2022 Active Start: 09-16-2022 Advair Diskus 100 mcg-50 mcg inhalation powder See Instructions, Refill(s) 0 Start Date: 09/16/22 Status: Ordered Start: 09-14-2022 Start: 09-14-2022 Fluticasone Pr opion-Salmeterol (Advair Diskus) 100-50 mcg/dose blister with device Active 1 INH INHALATION Twice daily 60 September 14, 2022 12:00am furosemide 40 mg oral tablet (20 sources) Loop Diuretic Start: 01-01-2025 take 1 tablet by mouth twice daily furosemide 40 mg Tab 40 mg = 1 tab(s), Oral, BID, # 60 tab(s), Refills(s) 2, Pharmacy: [facility] #16, 168, cm, 01/01/25 13:49:00 EDT, Height/Length Dosing, 161.7, kg, 01/01/25 13:49:00 EDT, Weight Dosing Start Date: 01/01/25 Status: Ordered Quantity: 60.0 Unit: tab(s) Repeat number: 3 Indications: Unspecified diastolic (congestive) heart failure; Localized edema; Start: 12-29-2024 take 1 tablet by manish th twice daily furosemide 40 mg Tab 40 mg = 1 tab(s), Oral, BID, # 60 tab(s), Refills(s) 0, Pharmacy: [facility] #16, 168, cm, 12/27/24 10:40:00 EDT, Height/Length [...] Daily, # 90 tab(s), Refills(s) 1, Pharmacy: [facility] #[id number], 168, cm, 06/05/24 13:03:00 EST, Height/Length Dosing, 145.9, kg, 06/05/24 13:03:00 EST, Weight Dosing Start Date: 06/05/24 Status: Ordered Quantity: 90.0 Unit: tab(s) Repeat number: 2 Indications: Localized edema; Start: 09-22-2022 Lasix 20 mg Ta b 20 mg = 1 tab(s), Oral, As Directed, # 30 tab(s), Refills(s) 1, Pharmacy: [facility] #[id number], 167, cm, 09/29/22 11:37:00 EDT, Height/Length Dosing, 149.2, kg, 09/29/22 11:37:00 EDT, Weight Dosing Start Date: 09/29/22 Status: Ordered Start: 09-14-2022 take 1 tablet by manish once daily furosemide 40 mg Tab 40 mg = 1 tab(s), Oral, Daily, # 90 tab(s), Refills(s) 1, Pharmacy: [facility] #[id number], 167.6, cm, 12/23/23 10:59:00 EDT, Height/Length Dosing, 136, kg, 12/23/23 10:59:00 EDT, Weight Dosing Start Date: 01/31/24 Status: Ordered Start: 08-20-2022 take 2 tablets by mo [facility] once daily Lasix 20 mg Tab 40 mg = 2 tab(s), Oral, Daily, Take with potassium supplment., # 180 tab(s), Refills(s) 5, Pharmacy: [facility] #[id number], 163, cm, 08/20/22 14:05:00 EST, Height/Length Dosing, 155, kg, 08/20/22 14:05:00 EST, Weight Dosing Start Date: 08/20/22 Status: Ordered Start: 07-27-2021 End: 09-14-2022 take 1 tablet by mouth once daily Furosemide 20 mg Tablet Discontinued 20 MG PO Daily September 10, 2022 1:00am September 14, 2022 11:24am gabapentin 800 mg oral tablet (20 sources) Anti-epileptic Agent Start: 04-03-2025 take 1 tablet by mouth three times daily Gabapentin 800 mg tablet Active 800 MG PO Three times daily April 03, 2025 12:00am Complies with drug therapy Start: 02-22-2024 gabapentin 300 mg Cap 300 mg = 1 cap(s), TID, Refills(s) 0 Start Date: 02/22/24 Status: Ordered Repeat number: 1 glipiZIDE er 2.5 mg 24 hr extended release oral tablet (20 sources) Sulfonylurea Start: 04-09-2025 take 1 tablet by mouth once daily glipiZIDE 2.5 mg ER Tab 2.5 mg = 1 tab(s), Oral, Daily, # 90 tab(s), Refills(s) 3, Pharmacy: [facility] #16, 168, cm, 04/09/25 11:43:00 EDT, Height/Length Dosing, 160.8, kg, 04/09/25 11:43:00 EDT, Weight Dosing Start Date: 04/09/25 Status: Ordered Quantity: 90.0 Unit: tab(s) Repeat number: 4 Start: 11-27-2024 take 1 tablet by manish th once daily glipiZIDE 2.5 mg ER Tab 2.5 mg = 1 tab(s), Oral, Daily, # 90 tab(s), Refills(s) 1, Pharmacy: [facility] #[id number], 168, cm, 11/27/24 14:20:00 EDT, Height/Length Dosing, 159.8, kg, 11/27/24 14:20:00 EDT, Weight Dosing Start Date: 11/27/24 Status: Ordered Quantity: 90.0 Unit: tab(s) Repeat number: 2 Start: 04-13-2022 take 1 tablet by manish th once daily glipiZIDE 2.5 MG tablet XL Take 1 tablet by mouth daily. 12/20/2023 Active Start: 12-30-2021 take 1 tablet by manish th once daily glipiZIDE 2.5 mg ER Tab 2.5 mg = 1 tab(s), Oral, Daily, # 90 tab(s), Refills(s) 1, Pharmacy: [facility] [place] [address], 163, cm, 12/30/21 11:09:00 EDT, Height/Length Dosing, 154, kg, 12/30/21 11:09:00 EDT, Weight Dosing Start Date: 12/30/21 Status: Ordered Glucometer (20 sources) Start: 06-03-2021 Glucometer Glu cometer, See Instructions, 1 EA, 0, Glucometer to test BS TID and PRN dx E11.9, [facility], Supply, 170, cm, 05/27/21 8:31:00 EST, Height/Length Dosing, 157.8, kg, 05/27/21 8:31:00 EST, Weight Dosing Start Date: 06/03/21 Status: Ordered Quantity: 1.0 Unit: EA Repeat number: 1 Start: 06-03-2021 Glucometer Glu cometer, See Instructions, 1 EA, 0, Glucometer to test BS TID and PRN dx E11.9, [facility], Supply, 170, cm, 05/27/21 8:31:00 EST, Height/Length Dosing, 157.8, kg, 05/27/21 8:31:00 EST, Weight Dosing Start Date: 06/03/21 Status: Ordered Glucose (1 source) Start: 06-03-2021 Glucose Kit Glucose Kit, See Instructions, 1 EA, 0, Glucose meter. Include autolet, matching test strips, lancets, & alcohol wipes, #300 or as allowed by insurance; Test TID and PRN. DX: E11.9, [facility], Supply, 170, cm, 05/27/21 8:31:00 EST, Height... Start Date: 06/03/21 Status: Ordered hydroCHLOROthiazide 50 mg oral tablet (20 sources) Thiazide Diuretic Start: 04-13-2022 take 1 tablet by mouth once daily hydrochlorothiazide 50 mg Tab 50 mg = 1 tab(s), Oral, Daily, # 90 tab(s), Refills(s) 1, [facility]acy: [facility] #[id number], 163, cm, 12/30/21 11:09:00 EDT, Height/Length Dosing, 154, kg, 12/30/21 11:09:00 EDT, Weight Dosing Start Date: 04/13/22 Status: Ordered Start: 08-03-2021 take 1 tablet by manish once daily hydrochlorothiazide 50 mg Tab 50 mg = 1 tab(s), Oral, Daily, # 30 tab(s), Refills(s) 5, Pharmacy: [facility] [employer], 170, cm, 07/28/21 10:34:00 EST, Height/Length Dosing, 152, kg, 07/28/21 10:34:00 EST, Weight Dosing Start Date: 08/03/21 Status: Ordered take 2 tablets by mo [facility] once daily hydroCHLOROthiazide (HYDRODIURIL) 25 MG tablet Take 2 tablets by mouth daily 0 Active take 1 tablet by manish th once daily hydroCHLOROthiazide (HYDRODIURIL) 25 MG tablet Take 25 mg by mouth daily 0 Active icosapent ethyl 1000 mg oral capsule (1 source) Start: 05-29-2021 Vascepa 1 g oral capsule 2 gram = 2 cap(s), Oral, BID, # 120 cap(s), Refills(s) 5, Pharmacy: [facility], 170, cm, 05/27/21 8:31:00 EST, Height/Length Dosing, 157.8, kg, 05/27/21 8:31:00 EST, Weight Dosing Start Date: 05/29/21 Status: Ordered loratadine 10 mg oral tablet (20 sources) Start: 09-23-2020 take 1 tablet by mouth once daily as needed loratadine 10 mg Tab 10 mg = 1 tab(s), Oral, Daily, PRN as needed for allergy symptoms, # 90 tab(s), Refills(s) 3, [facility]acy: [facility] #[id number], 163, cm, 12/30/21 11:09:00 EDT, Height/Length Dosing, 154, kg, 12/30/21 11:09:00 EDT, Weight Dosing Start Date: 04/13/22 Status: Ordered losartan potassium 50 mg oral tablet (18 sources) Angiotensin 2 Receptor Shiv Start: 08-20-2022 take 1 tablet by mouth once daily meloxicam (7 sources) Nonsteroidal Anti-inflammatory Drug MELOXICAM PO Meloxicam 0 Active metFORMIN hydrochloride 500 mg oral tablet (18 sources) Biguanide Start: 08-24-2021 take 1 tablet by mouth twice daily at mealtime metformin 500 mg oral tablet 500 mg = 1 tab(s), Oral, BID, with meals, # 60 tab(s), Refills(s) 2, Pharmacy: [facility], 170, cm, 07/28/21 10:34:00 EST, Height/Length Dosing, 152, kg, 07/28/21 10:34:00 EST, Weight Dosing Start Date: 08/24/21 Status: Ordered methylPREDNISolone 4 mg oral tablet (1 source) Corticosteroid Start: 04-09-2025 End: 04-15-2025 Medrol 4 mg Tab = 1 packet(s), Oral, As Directed, as directed on package labeling, X 6 day(s), # 21 tab(s), Refills(s) 0, Pharmacy: [facility], 168, cm, 04/09/25 11:43:00 EDT, Height/Length Dosing, 160.8, kg, 04/09/25 11:43:00 EDT, Weight Dosing Start Date: 04/09/25 Stop Date: 04/15/25 Status: Ordered Quantity: 21.0 Unit: tab(s) Repeat number: 1 montelukast 10 mg oral tablet (20 sources) Leukotriene Receptor Antagonist Start: 04-09-2025 take 1 tablet by mouth once daily in the evening Singulair 10 mg Tab 10 mg = 1 tab(s), Oral, qPM, # 90 tab(s), Refills(s) 2, Pharmacy: [facility], 168, cm, 04/09/25 11:43:00 EDT, Height/Length Dosing, 160.8, kg, 04/09/25 11:43:00 EDT, Weight Dosing Start Date: 04/09/25 Status: Ordered Quantity: 90.0 Unit: tab(s) Repeat number: 3 Start: 10-16-2019 take 1 tablet by manish th once daily in the evening Singulair 10 mg Tab 10 mg = 1 tab(s), Oral, qPM, # 30 tab(s), Refills(s) 2, Pharmacy: [address], 170, cm, 10/16/19 9:09:00 EDT, Height/Length Measured, [...] at a time, for 24 hours only, [facility], 168, cm, 01/02/25 13:43:00 EDT, Height/Length Dosing, 159, kg, 01/02/25 13:43:00 EDT, Weight Dosing Start Date: 01/02/25 Stop Date: 01/23/25 Status: Ordered Quantity: 21.0 Unit: patch(es) Repeat number: 1 Start: 09-22-2022 End: 10-06-2022 nicotine 21 mg/24 hr Transde rm ER Film 1 patch(es), Topical, Daily for 14 day(s), 14 EA, Refill(s) 0, [facility] #[id number], 167, cm, 09/22/22 8:24:00 EDT, Height/Length Dosing, 157.4, kg, 09/22/22 8:24:00 EDT, Weight Dosing Start Date: 09/22/22 Stop Date: 10/06/22 Status: Ordered nystatin 100 unt/mg topical powder (3 sources) Polyene Antifungal Start: 01-02-2025 nystatin Top 100,000 units/g Pwdr 1 beto, Topical, BID, 15 gram, Refill(s) 1, [facility], 168, cm, 01/02/25 13:43:00 EDT, Height/Length [...] Daily, # 90 tab(s), Refills(s) 4, Pharmacy: [facility], 168, cm, 01/02/25 13:43:00 EDT, Height/Length Dosing, 159, kg, 01/02/25 13:43:00 EDT, Weight Dosing Start Date: 01/15/25 Status: Ordered Quantity: 90.0 Unit: tab(s) Repeat number: 5 Start: 09-01-2019 take 1 tablet by manish th once daily Pantoprazole [address] Tab 40 mg = 1 tab(s), Oral, Daily, # 90 tab(s), Refills(s) 3, Pharmacy: [facility] #[id number], 167, cm, 02/22/24 13:09:00 EDT, Height/Length Dosing, 137, kg, 02/22/24 13:09:00 EDT, Weight Dosing Start Date: 05/07/24 Status: Ordered Quantity: 90.0 Unit: tab(s) Repeat number: 4 rosuvastatin calcium 40 mg oral tablet (20 sources) HMG-CoA Reductase Inhibitor Start: 04-09-2025 take 1 tablet by mouth once daily Crestor 40 mg Tab 40 mg = 1 tab(s), Oral, Daily, # 90 tab(s), Refills(s) 3, Pharmacy: [facility], 168, cm, 04/09/25 11:43:00 EDT, Height/Length Dosing, 160.8, kg, 04/09/25 11:43:00 EDT, Weight Dosing Start Date: 04/09/25 Status: Ordered Quantity: 90.0 Unit: tab(s) Repeat number: 4 Indications: Mixed hyperlipidemia; Start: 11-27-2024 take 1 tablet by manish once daily Crestor 40 mg Tab 40 mg = 1 tab(s), Oral, Daily, # 90 tab(s), Refills(s) 3, [id number], 168, cm, 11/27/24 14:20:00 EDT, Height/Length Dosing, 159.8, kg, 11/27/24 14:20:00 EDT, Weight Dosing Start Date: 11/27/24 Status: Ordered Quantity: 90.0 Unit: tab(s) Repeat number: 4 Indications: Mixed hyperlipidemia; Start: 06-05-2024 take 1 tablet by manish th once daily Crestor 40 MG tablet Take 1 tablet by mouth daily. 06/05/2024 Active Start: 04-13-2022 take 1 tablet by manish th once daily Crestor 40 mg Tab 40 mg = 1 tab(s), Oral, Daily, # 90 tab(s), Refills(s) 3, Pharmacy: [facility] #[id number], 167, cm, 05/09/23 8:15:00 EST, Height/Length Dosing, 145.6, kg, 05/09/23 8:15:00 EST, Weight Dosing Start Date: 06/28/23 Status: Ordered Start: 12-30-2021 take 1 tablet by manish th once daily Crestor 40 mg Tab 40 mg = 1 tab(s), Oral, Daily, # 30 tab(s), Refills(s) 5, Pharmacy: [facility], 163, cm, 12/30/21 11:09:00 EDT, Height/Length [...] Daily, # 90 tab(s), Refills(s) 4, Pharmacy: [facility], 168, cm, 01/02/25 13:43:00 EDT, Height/Length Dosing, 159, kg, 01/02/25 13:43:00 EDT, Weight Dosing Start Date: 01/15/25 Status: Ordered Quantity: 90.0 Unit: tab(s) Repeat number: 5 Indications: Essential (primary) hypertension; Start: 06-05-2024 take 1 tablet by manish th once daily spironolactone 25 mg Tab 25 mg = 1 tab(s), Oral, Daily, # 90 tab(s), Refills(s) 1, Pharmacy: [facility] #[id number], 168, cm, 06/05/24 13:03:00 EST, Height/Length Dosing, 145.9, kg, 06/05/24 13:03:00 EST, Weight Dosing Start Date: 06/05/24 Status: Ordered Quantity: 90.0 Unit: tab(s) Repeat number: 2 Indications: Essential (primary) hypertension; Start: 12-14-2022 End: 04-08-2024 take 1 tablet by mouth once daily spironolactone 25 mg Tab 25 mg = 1 tab(s), Oral, Daily, X 90 day(s), # 90 tab(s), Refills(s) 1, Pharmacy: [facility] #[id number], 168, cm, 10/11/23 14:32:00 EDT, Height/Length Dosing, 160.2, kg, 10/11/23 14:32:00 EDT, Weight Dosing Start Date: 10/11/23 Stop Date: 04/08/24 Status: Ordered Start: 09-10-2022 take 1 tablet by manish th twice daily spironolactone 25 mg Tab 25 mg = 1 tab(s), Oral, BID, # 60 tab(s), Refills(s) 4, Pharmacy: [facility] #[id number], 163, cm, 09/06/22 11:28:00 EST, Height/Length Dosing, 154, kg, 09/06/22 11:28:00 EST, Weight Dosing Start Date: 09/20/22 Status: Ordered Start: 08-23-2022 take 1 tablet by manish th twice daily spironolactone 25 mg Tab 25 mg = 1 tab(s), Oral, BID, # 60 tab(s), Refills(s) 0, Pharmacy: [facility] #[id number], 163, cm, 08/20/22 14:05:00 EST, Height/Length Dosing, 155, kg, 08/20/22 14:05:00 EST, Weight Dosing Start Date: 08/23/22 Status: Ordered Symbicort 160/4.5 inhalation aerosol with adapter (5 sources) Start: 07-23-2022 Symbicort 160/ 4.5 inhalation aerosol with adapter 2 puff(s), Inhalation, BID, 1 EA, Refill(s) 5, rinse mouth and throat after use, [facility] #[id number], 163, cm, 12/30/21 11:09:00 EDT, Height/Length Dosing, 154, kg, 12/30/21 11:09:00 EDT, Weight Dosing Start Date: 07/23/22 Status: Ordered Start: 10-26-2021 take 2 puff(s) by in halation twice daily Symbicort 160/4.5 inhalation aerosol with adapter 2 puff(s), Inhalation, BID, 1 EA, Refill(s) 5, rinse mouth and throat after use, [facility], 170, cm, 07/28/21 10:34:00 EST, Height/Length Dosing, 152, kg, 07/28/21 10:34:00 EST, Weight Dosing Start Date: 10/26/21 Status: Ordered 60 actuat tiotropium 0.32071 mg/actuat inhalation spray (20 sources) Anticholinergic Start: 12-30-2021 take 2 puff(s) by inhalation once daily Spiriva Respimat 1.25 mcg/inh inhalation aerosol 2 puff(s), Inhalation, Daily, 3 EA, Refill(s) 3, [facility], 163, cm, 12/30/21 11:09:00 EDT, Height/Length [...] Spasm, # 30 tab(s), Refills(s) 0, Pharmacy: [facility] #[id number], 167, cm, 05/09/23 8:15:00 EST, Height/Length Dosing, 145.6, kg, 05/09/23 8:15:00 EST, Weight Dosing Start Date: 05/09/23 Status: Ordered Start: 04-26-2023 take 1 tablet by manish th every eight hours as needed for muscle spasms tiZANidine 4 mg Tab 4 mg = 1 tab(s), Oral, q8hr, PRN Spasm, # 20 tab(s), Refills(s) 0, [facility]acy: [facility] #[id number], 167, cm, 04/26/23 11:10:00 EDT, Height/Length Dosing, 141.8, kg, 04/26/23 11:10:00 EDT, Weight Dosing Start Date: 04/26/23 Status: Ordered traMADol hydrochloride 50 mg oral tablet (4 sources) Opioid Agonist Start: 01-09-2024 take 1 tablet by mouth every six hours as needed for pain traMADOL 50 mg Tab 50 mg = 1 tab(s), Oral, q6hr, PRN for pain, # 28 tab(s), Refills(s) 0, Pharmacy: [facility] #[id number], 167.6, cm, 12/23/23 10:59:00 EDT, Height/Length Dosing, 136, kg, 12/23/23 10:59:00 EDT, Weight Dosing Start Date: 01/09/24 Status: Ordered Start: 11-25-2023 take 1 tablet by manish th every six hours as needed for pain traMADOL 50 mg Tab 50 mg = 1 tab(s), Oral, q6hr, PRN for pain, # 28 tab(s), Refills(s) 0, Pharmacy: [facility] #[id number], 168, cm, 11/25/23 14:36:00 EDT, Height/Length Dosing, 141.8, kg, 11/25/23 14:36:00 EDT, Weight Dosing Start Date: 11/25/23 Status: Ordered traZODone hydrochloride 50 mg oral tablet (20 sources) Serotonin Reuptake Inhibitor Start: 10-11-2023 take 1 tablet by mouth once daily at bedtime traZODONE 50 mg Tab 50 mg = 1 tab(s), Oral, Once a day (at bedtime), # 30 tab(s), Refills(s) 0, [facility]acy: [facility] #[id number], 168, cm, 10/11/23 14:32:00 EDT, Height/Length Dosing, 160.2, kg, 10/11/23 14:32:00 EDT, Weight Dosing Start Date: 10/11/23 Status: Ordered Start: 08-10-2023 take 1 tablet by manish once daily at bedtime traZODONE 50 mg Tab 50 mg = 1 tab(s), Oral, Once a day (at bedtime), # 30 tab(s), Refills(s) 0, Pharmacy: [facility] #[id number], 167, cm, 08/10/23 14:24:00 EST, Height/Length Dosing, 151.4, kg, 08/10/23 14:24:00 EST, Weight Dosing Start Date: 08/10/23 Status: Ordered Start: 10-20-2020 take 2 tablets by mo [facility] once daily at bedtime as needed traZODONE 150 mg Tab 300 mg = 2 tab(s), Oral, Once a day (at bedtime), PRN Insomnia, # 180 tab(s), Refills(s) 1, Pharmacy: [facility], 170, cm, 10/13/20 9:06:00 EDT, Height/Length Dosing, 153.3, kg, 10/13/20 9:06:00 EDT, Weight Dosing Start Date: 10/20/20 Status: Ordered take 1 tablet by manish once daily as needed for sleep traZODone (DESYREL) 150 MG tablet Take 1 tablet by mouth nightly as needed for Sleep 0 Active take 2 tablets by mo [facility] once daily traZODone (DESYREL) 150 MG [...] meals, # 60 tab(s), Refills(s) 4, Pharmacy: [facility] #[id number], 167.5, cm, 10/18/22 13:30:00 EDT, Height/Length Dosing, [...] varenicline, # 11 tab(s), Refills(s) 0, Pharmacy: [facility] #[id number], 167.5, cm, 10/18/22 13:30:00 EDT, Height/Length Dosing, 147, kg, 10/18/22 13:30:00 EDT, Weight Dosing Start Date: 10/18/22 Status: Ordered Completed/Discontinued Medications Medication Drug Class(es) Dates Sig (Normalized) Sig (Original) Bariatric transfer bench shower chair w/back rest (3 sources) Start: 01-28-2025 Bariatric transfer bench shower [...] hours, # 2 tab(s), Refills(s) 0, Pharmacy: [facility], 168, cm, 01/02/25 13:43:00 EDT, Height/Length [...] 1 EA, 0, Nebulizer Machine, [facility] #[id number], Supply, 168, cm, 10/11/23 14:32:00 EDT, Height/Length Dosing, 160.2, kg, 10/11/23 14:32:00 EDT, Weight Dosing Start Date: 10/11/23 Status: Ordered Quantity: 1.0 Unit: EA Repeat number: 1 Indications: Moderate persistent asthma, uncomplicated; Start: 10-11-2023 Nebulizer Mach ine Nebulizer Machine, See Instructions, 1 EA, 0, Nebulizer Machine, [facility] #[id number], Supply, 168, cm, 10/11/23 14:32:00 EDT, Height/Length Dosing, 160.2, kg, 10/11/23 14:32:00 EDT, Weight Dosing Start Date: 10/11/23 Status: Ordered Start: 10-02-2019 Nebulizer Mach ine Nebulizer Machine, See Instructions, 1 EA, 0, Nebulizer Machine, [email or web address], Supply, 170, cm, 10/02/19 13:41:00 EDT, Height/Length Measured, 156, kg, 10/02/19 13:41:00 EDT, Weight Measured Start Date: 10/02/19 Status: Ordered Nebulizer Tubing and Mouthpiece Kit (20 sources) Start: 10-11-2023 Nebulizer Tubi ng and Mouthpiece Kit Nebulizer Tubing and Mouthpiece Kit, See Instructions, 1 kit(s), 0, Nebulizer Tubing and Mouthpiece Kit, [facility] #[id number], Supply, 168, cm, 10/11/23 14:32:00 EDT, Height/Length Dosing, 160.2, kg, 10/11/23 14:32:00 EDT, Weight Dosing Start Date: 10/11/23 Status: Ordered Quantity: 1.0 Unit: kit(s) Repeat number: 1 Indications: Moderate persistent asthma, uncomplicated; Start: 10-11-2023 Nebulizer Tubi ng and Mouthpiece Kit Nebulizer Tubing and Mouthpiece Kit, See Instructions, 1 kit(s), 0, Nebulizer Tubing and Mouthpiece Kit, [facility] #[id number], Supply, 168, cm, 10/11/23 14:32:00 EDT, Height/Length Dosing, 160.2, kg, 10/11/23 14:32:00 EDT, Weight Dosing Start Date: 10/11/23 Status: Ordered Start: 10-02-2019 Nebulizer Tubi ng and Mouthpiece Kit Nebulizer Tubing and Mouthpiece Kit, See Instructions, 1 kit(s), 0, Nebulizer Tubing and Mouthpiece Kit, [email or web address] #16, Supply, 170, cm, 10/02/19 13:41:00 EDT, Height/Length Measured, 156, kg, 10/02/19 13:41:00 EDT, Weight Measured Start Date: 10/02/19 Status: Ordered polyethylene glycol 3350 [id number] mg / potassium chloride 2970 mg / sodium bicarbonate 6740 mg / sodium chloride 5860 mg / sodium sulfate 18429 mg powder for oral solution (1 source) [...] Lasix, # 90 tab(s), Refills(s) 4, Pharmacy: [facility], 168, cm, 01/29/25 8:19:00 EDT, Height/Length [...] Lasix, # 90 tab(s), Refills(s) 4, Pharmacy: [facility], 168, cm, 01/29/25 8:19:00 EDT, Height/Length Dosing, 159, kg, 01/24/25 8:55:00 EDT, Weight Dosing Start Date: 01/29/25 Status: Ordered Quantity: 90.0 Unit: tab(s) Repeat number: 5 Indications: Localized edema; predniSONE 10 mg oral tablet (17 sources) Start: 12-29-2024 predniSONE 10 mg Tab 10 mg = 1 tab(s), Oral, As Directed, 4 tabs for 2 days,3 tabs for 2 days,2 tabs for 2 days,1 tab for 2 days, # 20 tab(s), Refills(s) 0, Pharmacy: [facility], 168, cm, 12/27/24 10:40:00 EDT, Height/Length [...] day, # 6 tab(s), Refills(s) 0, [facility]acy: [facility] #[id number], 167, cm, 04/26/23 11:10:00 EDT, Height/Length Dosing, [...] Start Date: 09/16/22 Status: Ordered Start: 09-14-2022 Ventolin HFA 90 mcg/inh Aerosol (3 sources) Start: 04-13-2022 take 1 dose by inhalation four times daily Ventolin HFA 90 mcg/inh Aerosol 2 puff(s), Inhalation, QID Cough, 1 EA, Refill(s) 1, [facility] #[id number], 163, cm, 12/30/21 11:09:00 EDT, Height/Length Dosing, 154, kg, 12/30/21 11:09:00 EDT, Weight Dosing Start Date: 04/13/22 Status: Ordered Start: 09-23-2020 take 2 puff(s) by in halation four times daily Ventolin HFA 90 mcg/inh Aerosol 2 puff(s), Inhalation, QID Cough, 1 EA, Refill(s) 0, [facility], 170, cm, 09/22/20 10:15:00 EDT, Height/Length Dosing, 155.5, kg, 09/22/20 10:15:00 EDT, Weight Dosing Start Date: 09/23/20 Status: Ordered Ventolin HFA 90 mcg/inh Aerosol-Adpt (20 sources) Start: 10-01-2022 take 1 dose by inhalation every six hours Ventolin HFA 90 mcg/inh Aerosol-Adpt 2 puff(s), Inhalation, q6hr for wheezing, 1 EA, Refill(s) 1, [facility] #[id number], 167, cm, 09/29/22 11:37:00 EDT, Height/Length Dosing, 149.2, kg, 09/29/22 11:37:00 EDT, Weight Dosing Start Date: 10/01/22 Status: Ordered Start: 07-23-2022 take 2 puff(s) by in halation every six hours for wheezing Ventolin HFA 90 mcg/inh Aerosol-Adpt 2 puff(s), Inhalation, q6hr for wheezing, 18 gram, Refill(s) 1, [facility] #[id number], 163, cm, 12/30/21 11:09:00 EDT, Height/Length Dosing, 154, kg, 12/30/21 11:09:00 EDT, Weight Dosing Start Date: 07/23/22 Status: Ordered Vitamin D3 5000 intl units oral capsule (20 sources) Start: 10-14-2022 take 1 capsule by mouth once daily at mealtime Vitamin D3 5000 intl units oral capsule 5,000 International_Unit = 1 cap(s), Oral, Daily, with food, # 100 cap(s), Refills(s) 1, Pharmacy: [facility] #[id number], 170, cm, 10/13/22 9:06:00 EDT, Height/Length Dosing, 149.2, kg, 09/29/22 11:37:00 EDT, Weight Dosing Start Date: 10/14/22 Status: Ordered Problems Active Problems Problem Classification Problem Date Documented Da te Episodic/Chronic Acute bronchitis (2 sources) Acute bronchitis; Translations: [Acute bronchitis, unspecified] Onset: 5 Episodic Administrative/social admission (1 source) Patient encounter status; [...] with (acute) exacerbation] Onset: 3 09-10-2022 Chronic Comment on above: Problem List clean-u p per request of Phys. EHR Cmte Congestive heart failure; nonhypertensive (20 sources) Right ventricular failure; Translations: [Right heart failure, unspecified] Onset: 3 Chronic Comment on above: Problem List clean-u p per request of Phys. EHR Cmte Diabetes mellitus with complications (20 sources) Complication due to diabetes mellitus; Translations: [Type 2 diabetes mellitus with other specified complication] Onset: 2 Chronic Diabetes mellitus without complication (14 sources) Type 2 diabetes mellitus; Translations: [Type [...] without psychotic features] Onset: 2 Chronic Mycoses (7 sources) Candidal paronychia ; Translations: [Candidiasis of skin and nail] Onset: 5 Episodic Nonspecific chest pain (6 sources) Chest pain; Translations: [Chest pain, unspecified] 09-10-2022 Episodic Comment on above: Problem List clean-u p per request of Phys. 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 EHR Cmte Other lower respiratory disease (2 sources) Shortness of breath; Translations: [Shortness of breath] 09-10-2022 Episodic Other lower respiratory disease (1 source) Dyspnea, unspecified; Translations: [Dyspnea, unspecified] Onset: 4 Episodic Other lower respiratory disease (12 sources) Dyspnea on exertion 11-27-2024 Episodic Other [...] 4 Episodic Respiratory failure; insufficiency; arrest (adult) (5 sources) Acute respiratory failure; Translations: [Acute respiratory failure with hypoxia] 09-10-2022 Episodic Comment on above: Problem List clean-u p per request of Phys. EHR Cmte Respiratory failure; insufficiency; arrest (adult) (1 source) [...] Reference Range Facil ity Ambulatory Visit Summaryon 1 Ambulatory Visit Summary Ambulatory Visit Summary CARMEN BLEDSOE :1960 Visit Date:04/09/2025 Ambulatory Visit Instructions Your Diagnosis Moderate persistent asthma Morbid obesity with BMI of 50.0-59.9, adult, Morbid (severe) obesity due to excess calories BMI 50.0-59.9, adult, Body mass index [BMI] 50.0-59.9, adult Your Care Team Attending Physician - Yocasta SMITH, HEATER OPERATOR HELPER-BUFFER OPERATORMyron Primary Care Physician - Yocasta SMITH, HEATER OPERATOR HELPER-BUFFER OPERATORMyron This Is Your Medications List albuterol (Albuterol (Eqv-Ventolin HFA) 90 mcg/inh inhalation aerosol) albuterol (albuterol 0.083% Inh [place] 3 mL) amoxicillin-clavulana te (Augmentin 875 mg-125 mg Tab) fluticasone nasal (Flonase 0.05 mg/inh [place]) glipiZIDE (glipiZIDE 2.5 mg ER Tab) methylPREDNISolone (Medrol 4 mg Tab) montelukast (Singulair 10 mg Tab) rosuvastatin (Crestor 40 mg Tab) Contact prescribing physician if questions or concerns Misc Prescription (Alcohol wipes) Misc Prescription (Bariatric transfer bench shower chair w/back rest) Misc Prescription (Glucometer) Misc Prescription (Lancets) Misc Prescription (Nebulizer Machine) Misc Prescription (Nebulizer Tubing and Mouthpiece Kit) Misc Prescription (Test Strips) aripiprazole (Abilify 5 mg Tab) buPROPion (buPROPion 150 mg/24 hours XL Tab) dulaglutide (Trulicity Pen 3 mg/0.5 mL [...] bunion/reconstruction . Discharge Vitals Heart Rate (Peripheral) 84 Respiratory Rate 16 Blood Pressure 126/88 Height 168 cm Height 66 in Weight 160.8 kg Weight 354.503 lb BMI 56.97 What to do next Scheduled Follow-Up Appointments Tuesday 8:00 AM EST With: Where: [facility] Tuesday 9:00 AM EST With: David LEONARD, Rick Gipson Where: [facility] [place] You Need to Schedule the Following Appointments Follow Up with Yocasta MSN, HEATER OPERATOR HELPER-BUFFER OPERATOR, Myron Hamilton When: In 3 months Comments: chronic care Where: [address] [place] [id number] Medications What How Much When Why Instructions New amoxicillin-clavulana te (Augmentin 875 mg-125 mg Tab) 1 Tablets By Mouth Every 12 hours Duration: 7 Days Pickup at [email or web address] New fluticasone nasal (Flonase 0.05 mg/ inh [place]) 2 Sprays Nasal Inhalation Every day each nostril Pickup at [email or web address]16 New methylPREDNISolone (Medrol 4 mg Tab) 1 Packets By Mouth As Directed Duration: 6 Days as directed on package labeling Pickup at [facility] New montelukast (Singulair 10 mg Tab) 1 Tablets By Mouth Once a day (in the evening) Refills: 2 Pickup at [email or web address]16 Changed albuterol (Albuterol (Eqv-Ventolin HFA) 90 mcg/ inh inhalation aerosol) 2 Puffs Inhalation Every 6 hours as needed for Shortness of breath or wheezing COPD with acute exacerbation Pickup at [email or web address]16 Changed albuterol (albuterol 0.083% Inh [place] 3 mL) 3 Milliliter Nebulized inhalation (aerosol) Every 6 hours as needed for Shortness of breath or wheezing Moderate persistent asthma Pickup at [email or web address] Unchanged glipiZIDE (glipiZIDE 2.5 mg ER Tab) 1 Tablets By Mouth Every day Pickup at [email or web address]16 Unchanged rosuvastatin (Crestor 40 mg Tab) 1 Tablets By Mouth Every day Mixed hyperlipidemia Pickup at [email or web address]16 Unchanged aripiprazole (Abilify 5 mg Tab) 1 Tablets By Mouth Every day Contact prescribing physician if questions or concerns Unchanged buPROPion (buPROPion 150 mg/ 24 hours XL Tab) 1 Tablets By Mouth Every 24 hours Contact prescribing physician if questions or concerns Unchanged dulaglutide (Trulicity Pen 3 mg/ 0.5 mL subcutaneous solution) See instructions inject 3 (THREE) mg under the skin EVERY week Contact prescribing physician if questions or [...] (HFpEF) heart failure with preserved ejection fraction Co (more content not included)... Normal [facility] Family Medicine Office/Clini c Noteon 04-09-2025 Family Medicine Office/Clinic Note Family Medicine Office/Clinic Note Chief Complaint Patient presents today for sore throat, congestion, poor appetite, and runny nose. The patient reports worsening shortness of breath and difficulty managing weight. HPI Staff Respiratory C/O: Duration: 04/05 Body aches: Yes Chest congestion: Denies Chills: yes Cough: yes Ear complaints: Denies Eye itching/watering: Denies Fever: Denies Headache: yes Nasal congestion: yes Nasal discharge: yes Poor appetite: yes Reduced activity: yes Sinus pain/pressure: Denies Sneezing: Denies Sputum production: Denies Wheezing: yes Ill contacts: Denies Remedies tried: _ _ _ History of Present Illness The patient is a 64-year-old female presenting with management of asthma and obesity. Staff HPI has been reviewed with the patient. The patient has a history of moderate persistent asthma, which has been managed with Advair. Initially, the medication appeared effective, but the patient reports a return of symptoms, including severe shortness of breath. Then she develops this respiratory infection. Taking gidh-tav-ukvlixn medication to help with the symptoms with no relief. Increased wheezing and difficulty breathing has been noticeable. The patient also has a history of morbid obesity with a BMI of 50.0-59.9. She is considering weight loss surgery as a potential intervention to alleviate some of the respiratory burden. Review of Systems PHQ Score Initial Depression Screen Score: 0 SCORE - Respiratory: Reports severe dyspnea, dry cough, and nasal congestion. Denies productive cough. - General: Reports feeling better today compared to yesterday. Denies recent fever. Physical Exam Vitals & Measurements HR: 84(Peripheral) RR: 16 BP: 126/88 SpO2: 96% HT: 66 in HT: 168 cm WT: 160.8 kg WT: 354.503 lb BMI: 56.97 Constitutional: Well-groomed, well-nourished, no signs of acute distress. HEENT: Head normocephalic, sclera is clear, bilateral ear canals patent minimal cerumen TMs visualized without any erythema or bulging, no palpable cervical lymph nodes, nares patent turbinates mildly inflamed, no rhinorrhea, mucous membranes are pink and moist no petechiae or stay noted to the posterior throat. Cardiothoracic: Heart rate and rhythm is regular strong, normal S1 and S2. No murmurs, rubs, or bruits auscultated. No peripheral edema, peripheral pulses +2 Respiratory: Lung sounds with audible expiratory wheezes throughout, respirations regular nonlabored, shortness of breath noted on ambulating Abdomen/GI: Abdomen soft nondistended. Musculoskeletal: Gait is steady, full range of motion. Integument: No rashes or lesions noted to the exposed skin. Psychiatric: Alert and oriented x 3, pleasant, no mood changes. Assessment/Plan 1. Acute bronchitis (J20.9: Acute bronchitis, unspecified) With her known respiratory history we will go ahead and get her on Augmentin since she was on a Z-Richi few months back, as well as some steroids. She is out of nebulizer solution we will go ahead and get that sent in as well as refill of her albuterol inhaler to be used as needed. Acetaminophen as needed for fever and pain. If no improvement she will let the office know we will do a chest x-ray. 2. Moderate persistent asthma (J45.40: Moderate persistent asthma, uncomplicated) The patient's asthma is currently managed with Advair, but symptoms have returned, indicating a need for reassessment of the treatment plan. Consideration is being given to trying Trelegy if insurance coverage allows, as it may provide better symptom control. The patient is advised to check with her insurance regarding coverage for Trelegy and to report back for further management. Will initiate Singulair as well. Ordered: albuterol, 2.5 mg, 3 mL, NEB, q6hr Shortness of breath or wheezing, 100 EA, Refill(s) 1, [email or web address], 168, cm, 04/09/25 11:43:00 EDT, Height/Length Dosing, 160.8, kg, 04/09/25 11:43:00 EDT, Weight Dosing 3. Morbid obesity with BMI of 50.0-59.9, adult [...] mass index [BMI] 50.0-59.9, adult) see #3 Orders: albuterol, 2 puff(s), Inhalation, q6hr Shortness of breath or wheezing, 6.7 gm, Refill(s) 1, [email or web address] #16, 168, cm, 04/09/25 11:43:00 EDT, Height/Length Dosing, 160.8, kg, 04/09/25 11:43:00 EDT, Weight Dosing amoxicillin-clavulana te, 1 tab(s), Oral, q12hr for 7 day(s), 14 tab(s), Refill(s) 0, [facility], 168, cm, 04/09/25 11:43:00 EDT, Height/Length Dosing, 160.8, kg, 04/09/25 11:43:00 EDT, Weight Dosing fluticasone nasal, 2 spray(s), Nasal, Daily, 16 gram, Refill(s) 0, each nostril, [facility] (more content not included)... Normal [facility] Comment on above: Result Comment: Elec tronically Signed By: Yocasta MSN, HEATER OPERATOR HELPER- BUFFER OPERATOR, Myron Hamilton\.br\Date and Time Signed: 04/09/25 12:15 EDT Heart and Vascular Office/Cl inic Noteon 03-12-2025 Heart and Vascular Office/Clinic Note Heart and Vascular Office/Clinic Note Chief Complaint 6 week F/U History of Present Illness Patient is a 64-year-old female with past medical history of hypertension, cigarette smoking, GERD, HFpEF, history of alcohol abuse, hyperlipidemia, asthma, BRENDA, type 2 diabetes. Echo from 11/2023 showed grossly normal EF with normal LV and RV and no significant valve disease, regional wall motion abnormality could not be excluded. Patient comes in for 6-week follow-up today. Reviewed prior echoes. At last visit, I saw patient at which time she was continued on current medications, but wanted a close follow-up to ensure she was stable. Patient reports that swelling to her lower extremities has been stable since last visit. She has been taking Lasix 40 mg twice daily and that regimen has been successful for her. She reports that she is not swelling much up at all right now and is tolerating the Lasix well. Patient has no further cellulitis or discoloration to her lower extremities since last visit. No pain to lower extremities at all either. Patient is still compliant with Jardiance and spironolactone as well for heart/swelling. Patient still does complain of shortness of breath. Patient reports that she still having about the same shortness of breath that she 2 at last visit. She reports that pretty much any activity causes her to be short of breath. However, patient also reports that she is getting a little bit of shortness of breath even when just sitting and resting at times. She states that this is fairly new and has been scary for her. She states that she has been using inhalers that have been prescribed which have been helpful, but she is still having about the same shortness of breath. Patient did have a negative nuc med stress test in 10/2022. Patient denies chest pain, heart palpitations, dizziness/lightheaded ness. REVIEWED PRIOR NOTE FROM 01/29/2025 Patient comes in for 1 month follow-up [...] consciousness Physical Exam Vitals & Measurements HR: 75(Peripheral) RR: 20 BP: 128/82 SpO2: 95% HT: 66 in HT: 168 cm WT: 339.952 lb WT: 154.2 kg BMI: 54.63 General: alert, no acute distress Cardiovascular: regular [...] No estimated PA pressure. Impaired diastolic relaxation. (10/20/2022 15:43 EDT NM Myocardial Spect Multi Stress) FINDINGS: Images were only of fair quality. Uptake of the tracer was patchy but not in a particular distribution. Overall, no jayme (more content not included)... Normal [facility] Comment on above: Result Comment: Elec tronically Signed By: David LEONARD, Rick Gipson\elsie\Date and Time Signed: 03/12/25 13:37 EDT Ambulatory Visit Summaryon 0 02-04-2025 Ambulatory Visit [...] Care Team Attending Physician - Yocasta MSN, HEATER OPERATOR HELPER-BUFFER OPERATORMyron. Primary Care Physician - Yocasta SMITH, HEATER OPERATOR HELPER-BUFFER OPERATORMyron. This Is Your Medications List buPROPion (buPROPion [...] With: Yocasta SMITH, DARLEEN-IRVING, Myron Hamilton Where: [facility] [address] [place] [address]- Tuesday 1:15 PM EDT With: Rick Hernandez PA-C Where: [facility] [place] You Need to Schedule the Following Appointments Follow Up with Yocasta SMITH, DARLEEN-IRVING, Myron Hamilton When: In 1 month Comments: weight loss, initial 40 min Where: [address] [place] [phone] Medications What How Much When Why Instructions New buPROPion (buPROPion 150 mg/ 24 hours XL Tab) 1 Tablets By Mouth Every 24 hours Pickup at [facility] Unchanged albuterol (Albuterol (Eqv-Ventolin HFA) 90 [...] Moderate pe (more content not included)... Normal [facility] Family Medicine Office/Clini c Noteon 02-04-2025 [...] cigarettes, uncomplicated) (more content not included)... Normal [facility] Comment on above: Result Comment: Elec tronically Signed By: Yocasta SMITH, Myron MUÑOZ CNP\.br\Date and Time Signed: 02/04/25 15:13 EDT Ambulatory Visit Summaryon 0 01-29-2025 Ambulatory Visit Summary Ambulatory Visit Summary CARMEN BLEDSOE :1960 Visit Date:01/29/2025 Ambulatory Visit Instructions Your Diagnosis Heart failure with preserved ejection fraction Benign hypertension Mixed hyperlipidemia Your Care Team Attending Physician - Rick Hernandez PA-C Primary Care Physician - Yocasta SMITH, SRINIVAS, Myron Hamilton Referring Physician - NONE, XXXX [...] Appointments Tuesday 1:40 PM EDT With: Yocasta MSN, HEATER OPERATOR HELPER-BUFFER OPERATOR, Myron Hamilton Where: [facility] [place] [address] [place] [address]- Tuesday 1:15 PM EDT With: David LEONARD, Rick Gipson Where: [facility] Medications What How Much When Why Instructions [...] 1 (more content not included)... Normal [facility] Heart and Vascular Office/Cl inic [...] of per (more content not included)... Normal [facility] Comment on above: Result Comment: Elec tronically Signed By: Rick Hernandez PA-C\elsie\Date and Time Signed: 01/29/25 10:10 EDT [facility] 01-29-20 [facility] Case Information Case Priority: None Programs: -- Referral Source: Lathe Operator Contact Lens Referral Reason: Care coordination Case Type: Transition Care Management Risk Score: -- Case Status: Enrolled (December 31, 2024) Date Assigned: December 31, 2024 Assigned By: Gracy Maxwell R.N. Date Enrolled: December 31, 2024 Assigned Primary Personnel: Gracy Maxwell R.N. Assigned Secondary Personnel: -- Case Physician: Yocasta MSN, HEATER OPERATOR HELPER-BUFFER OPERATOR, Myron Hamilton Problems Ongoing Alcohol abuse, in [...] See Instructions nystatin 100,000 units/mL Oral Susp, 324903 unit(s)= 5 mL, Oral-Swish&Swallow, QID nystatin Top [...] 12/31/24 09:55: (more content not included)... Normal [facility] BNPon 01-24-2025 Int Ctr BNP Pass Normal [facility] Comment on above: Performed By: #### 1 [id number] #### [facility] [address] [place] [address] Natriuretic peptide B (Bld) [Mass/Vol] 20 pg/mL Normal 5-80 [facility] Comment on above: Performed By: #### 1 [id number] #### [facility] [address] [place] [address] CBC w/ Auto Diffon 5 Basophil Absolute 0.2 E9/L Normal 0.0-0.2 [facility] Comment on above: Performed By: #### 2 [id number] #### [facility] [address] [place] [address] Basophils/100 WBC (Bld) 3.1 % High 0.0-2.0 [facility] Comment on above: Performed By: #### 2 [id number] #### [facility] [address] [place] [address] Eos Absolute 0.1 E9/L Normal 0.0-0.5 [facility] Comment on above: Performed By: #### 2 [id number] #### [facility] [address] [place] [address] Eosinophils/100 WBC (Bld) 2.7 % Normal 0.0-8.0 [facility] Comment on above: Performed By: #### 2 [id number] #### [facility] [address] [place] [address] Erythrocyte distribution width (RBC) [Ratio] 15.8 % High 10.9-14.2 [facility] Comment on above: Performed By: #### 2 [id number] #### [facility] [address] [place] [address] Hematocrit (Bld) [Volume fraction] 38.3 % Normal 34.0-46.0 [facility] Comment on above: Performed By: #### 2 [id number] #### [facility] [address] [place] [address] Hemoglobin (Bld) [Mass/Vol] 13.0 g/dL Normal 12.0-16.0 [facility] Comment on above: Performed By: #### 2 [id number] #### [facility] [address] [place] [address] Lymph Absolute 0.8 E9/L Low 1.0-4.0 [facility] Comment on above: Performed By: #### 2 [id number] #### [facility] [address] [place] [address] Lymphocytes/100 WBC (Bld) 15.4 % Normal 14.0-50.0 [facility] Comment on above: Performed By: #### 2 744535 #### [facility] [address] [place] [address] MCH (RBC) [Entitic mass] 31.3 pg Normal 27.0-34.0 [facility] Comment on above: Performed By: #### 2 [id number] #### [facility] [address] [place] [address] MCHC (RBC) [Mass/Vol] 33.9 g/dL Normal 31.4-36.0 [facility] Comment on above: Performed By: #### 2 089422 #### [facility] [address] [place] [address] MCV (RBC) [Entitic vol] 92.2 fL Normal 80.0-100.0 [facility] Comment on above: Performed By: #### 2 139043 #### [facility] [address] [place] [address] [place]de Absolute 0.4 E9/L Normal 0.2-1.0 [facility] Comment on above: Performed By: #### 2 786188 #### [facility] [address] [place] [address] Monocytes/100 WBC (Bld) 7.3 % Normal 4.0-14.0 [facility] Comment on above: Performed By: #### 2 700257 #### [facility] [address] [place] [address] Neutro Absolute 3.6 E9/L Normal 2.0-7.5 [facility] Comment on above: Performed By: #### 2 155271 #### [facility] [address] [place] [address] Neutro Auto 71.5 % Normal 36.0-75.0 [facility] Comment on above: Performed By: #### 2 336159 #### [facility] [address] [place] [address] Platelet 243.0 E9/L Normal 150.0-500.0 [facility] Comment on above: Performed By: #### 2 950241 #### [facility] [address] [place] [address] Platelet mean volume (Bld) [Entitic vol] 7.2 fL Normal 6.4-10.8 [facility] Comment on above: Performed By: #### 2 944981 #### [facility] [address] [place] [address] RBC 4.2 E12/L Low 4.3-5.9 [facility] Comment on above: Performed By: #### 2 786569 #### [facility] [address] [place] [address] WBC 5.0 E9/L Normal 4.0-11.0 [facility] Comment on above: Performed By: #### 2 823541 #### [facility] [address] [place] [address] CMPon 01-24-2025 Albumin [Mass/Vol] 4.3 g/dL Normal 3.3-5.0 [facility] Comment on above: Performed By: #### 2 248868 #### [facility] [address] [place] [address] Albumin/Globulin [Mass ratio] 1.5 {ratio} Normal 1.1-2.2 [facility] Comment on above: Performed By: #### 2 549121 #### [facility] [address] [place] [address] Alk Phos 61 Int._Unit/L Normal 21-98 [facility] Comment on above: Performed By: #### 2 258883 #### [facility] [address] [place] [address] ALT 28 Int._Unit/L Normal 6-46 [facility] Comment on above: Performed By: #### 2 130282 #### [facility] [address] [place] [address] Anion gap [Moles/Vol] 10 mmol/L Normal 6-16 [facility] Comment on above: Performed By: #### 2 772107 #### [facility] [address] [place] [address] AST 22 Int._Unit/L Normal 5-43 [facility] Comment on above: Performed By: #### 2 792645 #### [facility] [address] [place] [address] Bili Total 0.4 mg/dL Normal 0.0-1.1 [facility] Comment on above: Performed By: #### 2 817647 #### [facility] [address] [place] [address] BUN/Creat Ratio 20 No Units Normal 10-20 [facility] Comment on above: Performed By: #### 2 850049 #### [facility] [address] [place] [address] Calcium [Mass/Vol] 9.3 mg/dL Normal 8.9-11.1 [facility] Comment on above: Performed By: #### 2 540726 #### [facility] [address] [place] [address] Chloride [Moles/Vol] 100 mmol/L Low 101-111 [facility] Comment on above: Performed By: #### 2 130540 #### [facility] [address] [place] [address] CO2 [Moles/Vol] 33 mmol/L High 21-31 [facility] Comment on above: Performed By: #### 2 841624 #### [facility] [address] [place] [address] Creatinine [Mass/Vol] 0.8 mg/dL Normal 0.5-1.3 [facility] Comment on above: Performed By: #### 2 130100 #### [facility] [address] [place] [address] Globulin (S) [Mass/Vol] 2.9 g/dL Normal 1.4-4.0 [facility] Comment on above: Performed By: #### 2 315288 #### [facility] [address] [place] [address] Glucose [Mass/Vol] 114 mg/dL Normal 55-199 [facility] Comment on above: Performed By: #### 2 890967 #### [facility] [address] [place] [address] Potassium [Moles/Vol] 3.7 mmol/L Normal 3.5-5.3 [facility] Comment on above: Performed By: #### 2 270733 #### [facility] [address] [place] [address] Protein [Mass/Vol] 7.2 g/dL Normal 6.0-7.8 [facility] Comment on above: Performed By: #### 2 378938 #### [facility] [address] [place] [address] Sodium [Moles/Vol] 139 mmol/L Normal 135-145 [facility] Comment on above: Performed By: #### 2 908825 #### [facility] [address] [place] [address] Urea nitrogen [Mass/Vol] 16 mg/dL Normal 5-21 [facility] Comment on above: Performed By: #### 2 541107 #### [facility] [address] [place] [address] CT Abdomen/Pelvis w/ Contras ton 01-24-2025 CT [...] MD Transcribed by: KARSTEN Technologist: LAURA Rodríguez [facility] ED Clinical Summaryon 2024 ED Clinical Summary ED Clinical Summary [place] [id number] ED Clinical Summary Person Information Name: CARMEN BLEDSOE[place] Age: 64 Years : 1960 Sex: Female Language: Sierra Leonean PCP: Yocasta SMITH, HEATER OPERATOR HELPER-BUFFER OPERATORMyron Marital Status: Single Visit Id: Visit Reason: [...] 01/24/2025 13:34:37 01/24/2025 13:34:37 01/24/2025 13:34:37 ADDRESS: [address] [place] [phone] PHYS DOC NOTES: MEDICAL INFORMATION: Prescriptions Given: New Medications [facility], [address], [place] [id number], [phone] acetaminophen-hydroco done ([place] 325 mg-5 mg oral tablet) 1 Tablets [...] Refills: 3. (more content not included)... Normal [facility] ED Note-Physicianon 01-25-20 ED Note-Physician ED Note-Physician Basic Information Time Seen: Kuldip LEONARD, Lui Hagan 01/24/2025 08:52 Chief Complaint PT REPORTS 4 [...] or rigidity noted. Neurological: A&O, normal equal plowing gardens strength, normal speech, normal coordination, normal motor, [...] and p (more content not included)... Normal [facility] Comment on above: Result Comment: Elec tronically Signed By: Lui Christiansen PA-C\.br\Date and Time Signed: 01/24/25 16:12 EDT\.br\Electronically Co-Signed By: Oneal Newman DO\.br\Date and Time Co-Signed: 01/24/25 19:04 EDT ED Patient Summaryon 025 ED Patient Summary ED Patient Summary [place] [id number] Patient Discharge Instructions Person Information Name: CARMEN BLEDSOE Age: 64 Years Arrival Date: 01/24/2025 08:46:49 Discharge Diagnosis: COPD exacerbation; Laceration of left ear; Left hip pain; Low back pain; Multiple falls; Oral thrush; Osteoarthritis of hip; Shortness of breath Primary Care Physician: Yocasta MSN, HEATER OPERATOR HELPER-BUFFER OPERATOR, Myron Hamilton Provider Information Primary Provider: Advanced Career Manager:Lui Christiansen PA-C The exam and treatment you received in the Emergency Department were for an urgent problem and are not intended as complete care. It is important that you follow up with a doctor, nurse practitioner, or physician???s workers compensation claims assistant for ongoing care. If your symptoms [...] Follow-up Instructions: With: Address: When: Myron Rust [address] [facility], [place], [place] [phone] fflap (1) In 3 days 01/27/2025 Comments: Please call primary care office for close outpatient follow-up regarding thrush, back and hip pain, COPD exacerbation. Take medication as prescribed. Return to ED if symptoms worsen or new symptoms arise. Please ambulate with assistance at home to prevent further falls. Return to ED if you have another fall. With: Address: When: [facility] [address] [place] [phone] fflap (1) In 3 days 01/27/2025 Comments: Please [...] opioids can be used to help relieve hrgbnytn-ij-qznzkr pain and are often prescribed following a [...] your prima (more content not included)... Normal [facility] PT & PTTon 01-24-2025 INR Coag (PPP) [Relative time] 1.00 {INR} Invalid Interpretation Code [facility] Comment on above: Result Comment: INR results are specifically intended to assess patients stabilized on long-term Anticoagulation therapy suggested INR???s ???Less Intensive Anticoagulation??? 2.0 ??? 3.0 Conventional Range 3.0 ??? 4.5 Performed By: #### 1 [id number] #### [facility] [address] [place] [address] PT 11.2 second(s) Normal 9.4-12.5 [facility] Comment on above: Result Comment: 15 d [...] the same coagulation reagent and instrumentation as [facility]. Currently there are no coagulation studies available worldwide for children to 14 days, and no normal ranges. Performed By: #### 1 [id number] #### [facility] [address] [place] [address] PTT 32.6 second(s) Normal 25.1-36.5 [facility] Comment on above: Result Comment: Para meter [...] the same coagulation reagent and instrumentation as [facility]. Currently there are no coagulation studies available worldwide for children to 14 days, and no normal ranges. Heparin therapeutic range (represented by Anti-Factor Xa activity of 0.2 - 0.4 U/mL) corresponds to PTT of 56.6 - 109.0 sec. Performed By: #### 1 [id number] #### [facility] [address] [place] [address] Troponin 0 Hr.on 01-24-2025 Troponin HS 4.50 pg/mL Low 10.10-27.10 [facility] Comment on above: Result Comment: The 95% CI (Confidence Interval) PPV (Positive Predictive Value) for myocardial infarction in females is 38 pg/mL, in males 51 pg/mL. The results should be used in conjunction with clinical conditions of myocardial infarction. (Access High Sensitivity Troponin I Instructions For Use, [employer], February 2018) Performed By: #### 1 [id number] #### [facility] [address] [place] [address] Troponin 1 Hr.on 01-24-2025 Troponin HS 3.90 pg/mL Low 10.10-27.10 [facility] Comment on above: Result Comment: The 95% CI (Confidence Interval) PPV (Positive Predictive Value) for myocardial infarction in females is 38 pg/mL, in males 51 pg/mL. The results should be used in conjunction with clinical conditions of myocardial infarction. (Access High Sensitivity Troponin I Instructions For Use, [employer], February 2018) Performed By: #### 1 [id number] #### [facility] [address] [place] [address] UA with Cult [employer]xon 01-25-20 25 Color (U) Colorless Abnormal Yellow [facility] Comment on above: Result Comment: Micr oscopic readings are only performed on those samples that meet specific criteria set forth by [facility]. Performed By: #### 4 [id number] #### [facility] [address] [place] [address] Ketones Ql (U) Negative Normal Negative [facility] Comment on above: Performed By: #### 4 [id number] #### [facility] [address] [place] [address] UA Blood Negative Normal Negative [facility] Comment on above: Performed By: #### 4 [id number] #### [facility] [address] [place] [address] UA Clarity Clear Normal Clear [facility] Comment on above: Performed By: #### 4 [id number] #### [facility] [address] [place] [address] UA Glucose 3+ mg/dL Abnormal Negative [facility] Comment on above: Performed By: #### 4 [id number] #### [facility] [address] [place] [address] UA Leuk Est Negative Normal Negative [facility] Comment on above: Performed By: #### 4 [id number] #### [facility] [address] [place] [address] UA Nitrite Negative Normal Negative [facility] Comment on above: Performed By: #### 4 [id number] #### [facility] [address] [place] [address] UA pH 5.0 Invalid Interpretation Code 5.0-9.0 [facility] Comment on above: Performed By: #### 4 [id number] #### [facility] [address] [place] [address] UA Protein Negative Normal Negative [facility] Comment on above: Performed By: #### 4 [id number] #### [facility] [address] [place] [address] UA Spec Grav 1.016 Invalid Interpretation Code 1.005-1.030 [facility] Comment on above: Performed By: #### 4 [id number] #### [facility] [address] [place] [address] UA Urobilinogen Negative Normal Negative [facility] Comment on above: Performed By: #### 4 [id number] #### [facility] [address] [place] [address] Urobilinogen (U) [Mass/Vol] Negative Normal Negative [facility] Comment on above: Performed By: #### 4 [id number] #### [facility] [address] [place] [address] UA Spec Desc Clean Catch Normal [facility] Comment on above: Performed By: #### 4 [id number] #### [facility] [address] [place] [address] US Lower Extremity Venous Du plex Lefton [...] MD Transcribed by: KARSTEN Technologist: Marcos RUBIN [facility] XR Chest Single Viewon 01-24 XR [...] Norris DO Transcribed by: KARSTEN Technologist: NICHOLAS [facility] XR Hip 2-3 Views Left + [...] DO Transcribed by: KARSTEN Technologist: NICHOLAS Rodríguez [facility] eGFRon 01-24-2025 eGFR 83 mL/min/1.73 m2 Normal >=59 [facility] Comment on above: Performed By: #### 1 [id number] #### [facility] [address] [place] [address] Reminderson 01-21-2025 Reminders Reminders From: Gracy Maxwell R.N. To: [facility] Database Administration Associate; Gracy Maxwell R.N.; Sent: 01/21/2025 12:29:37 EDT Show up: 01/21/2025 12:29:00 EDT Subject: theo #2 final Due Date/Time: 01/28/2025 12:29:00 EDT Reminder/Recall Normal [facility] Pulmonary Function Studieson 01-16-2025 Pulmonary Function [...] the FEV1 to bronchodilator therapy. READ BY: Judit Sandoval Dictated: 01/12/2025 [id number] Transcribed: 01/15/2025 cc:Myron Rust, PHILLY-Rory [facility] Comment on above: Result Comment: [...] Care Team Attending Physician - Yocasta MSN, HEATER OPERATOR HELPER-BUFFER OPERATORMyron Primary Care Physician - Yocasta MSN, HEATER OPERATOR HELPER-BUFFER OPERATORMyron This Is Your Medications List nicotine (nicotine [...] Appointments Tuesday 12:30 PM EDT With: Where: [facility] Tuesday 1:40 PM EDT With: Yocasta SMITH, SRINIVAS, Myron Hamilton Where: [place] [address] [id number]- You Need to Schedule the Following Appointments Follow Up with Yocasta SMITH, SRINIVAS, Myron Hamilton When: In 1 month Where: [address] [place] [phone] Medications What How Much When Why Instructions New nicotine (nicotine 21 mg/ 24 hr Transderm ER Film) 1 Patches Topical Every 24 hours Duration: 21 Days wear only one patch at a time, for 24 hours only Pickup at [facility] #16 Unchanged albuterol (Albuterol (Eqv-Ventolin HFA) 90 [...] morbid obes (more content not included)... Normal [facility] CHEMISTRYOrdered By: Felicity Marin on 01-02-2025 [...] (abnormal relaxation pattern). [1] List of Providers Linux Engineer: Rick Hernandez PA-C Business Performance Advisor: Dr Phillip Orthopaedics: Dr Martinez LABS Cr/eGFR: [...] Appt. Date: 01/07/2025 12:30 PM Scheduled Provider: [facility] Pulmonary Function Lab Phone: -- Fax: [...] further complications. She did follow-up with her blocker and sewer yesterday and she is to follow-up with [...] of cellulitis, (more content not included)... Normal [facility] Comment on above: Result Comment: Elec tronically Signed By: Yocasta SMITH, HEATER OPERATOR HELPER- [place], Myron Hamilton\.br\Date and Time Signed: 01/02/25 15:41 EDT U MA/Cr Ratioon 01-02-2025 Microalb/Cr Ratio NOT CALCULATED Invalid Interpretation Code .0-30.0 [facility] Comment on above: Result Comment: 30-3 00 mg/g Cr indicates an increased risk for diabetic nephropathy. >300 mg/g Cr is consistent with clinical nephropathy. Performed By: #### 1 [id number] #### [facility] [address] [place] [address] U Creatinine 17.8 mg/dL Invalid Interpretation Code [facility] Comment on above: Performed By: #### 1 [id number] #### [facility] [address] [place] [address] U Microalb <0.7 Normal 0.0-1.9 [facility] Comment on above: Performed By: #### 1 [id number] #### [facility] [address] [place] [address] Heart and Vascular Office/Cl inic Noteon 01-01-2025 [...] swelling, but (more content not included)... Normal [facility] Comment on above: Result Comment: Elec tronically Signed By: Rick Hernandez PA-C\.hardik\Date and Time Signed: 01/01/25 14:28 EDT [facility] 01-01-20 [facility] Case Information Case Priority: None Programs: -- Referral Source: Lathe Operator Contact Lens Referral Reason: Care coordination Case Type: Transition Care Management Risk Score: -- Case Status: Enrolled (December 31, 2024) Date Assigned: December 31, 2024 Assigned By: Gracy Maxwell R.N. Date Enrolled: December 31, 2024 Assigned Primary Personnel: Gracy Maxwell R.N. Assigned Secondary Personnel: -- Case Physician: Yocasta SMITH, HEATER OPERATOR HELPER-BUFFER OPERATOR, Myron Hamilton Problems Ongoing Alcohol abuse, in [...] and Intervention (more content not included)... Normal [facility] Coding Queryon 12-30-2024 Coding Query Coding [...] CARMEN BLEDSOE; Caller Number: Cuca , Mita Normal [facility] BMPon 12-29-2024 Anion gap [Moles/Vol] 10 mmol/L Normal 6-16 [facility] Comment on above: Performed By: #### 2 [id number] #### [facility] [address] [place] [address] BUN/Creat Ratio 30 No Units High 10-20 [facility] Comment on above: Performed By: #### 2 [id number] #### [facility] [address] [place] [address] Calcium [Mass/Vol] 9.1 mg/dL Normal 8.9-11.1 [facility] Comment on above: Performed By: #### 2 [id number] #### [facility] [address] [place] [address] Chloride [Moles/Vol] 98 mmol/L Low 101-111 [facility] Comment on above: Performed By: #### 2 [id number] #### [facility] [address] [place] [address] CO2 [Moles/Vol] 31 mmol/L Normal 21-31 [facility] Comment on above: Performed By: #### 2 [id number] #### [facility] [address] [place] [address] Creatinine [Mass/Vol] 0.7 mg/dL Normal 0.5-1.3 [facility] Comment on above: Performed By: #### 2 069710 #### [facility] [address] [place] [address] Glucose [Mass/Vol] 185 mg/dL Normal 55-199 [facility] Comment on above: Performed By: #### 2 513091 #### [facility] [address] [place] [address] Potassium [Moles/Vol] 4.2 mmol/L Normal 3.5-5.3 [facility] Comment on above: Performed By: #### 2 089791 #### [facility] [address] [place] [address] Sodium [Moles/Vol] 135 mmol/L Normal 135-145 [facility] Comment on above: Performed By: #### 2 020051 #### [facility] [address] [place] [address] Urea nitrogen [Mass/Vol] 21 mg/dL Normal 5-21 [facility] Comment on above: Performed By: #### 2 [id number] #### [facility] [address] [place] [address] CBC w/ Auto Diffon 5 Basophil Absolute 0.1 E9/L Normal 0.0-0.2 [facility] Comment on above: Performed By: #### 2 [id number] #### [facility] [address] [place] [address] Basophils/100 WBC (Bld) 0.6 % Normal 0.0-2.0 [facility] Comment on above: Performed By: #### 2 [id number] #### [facility] [address] [place] [address] Eos Absolute 0.0 E9/L Normal 0.0-0.5 [facility] Comment on above: Performed By: #### 2 [id number] #### [facility] [address] [place] [address] Eosinophils/100 WBC (Bld) 0.0 % Normal 0.0-8.0 [facility] Comment on above: Performed By: #### 2 002515 #### [facility] [address] [place] [address] Erythrocyte distribution width (RBC) [Ratio] 15.6 % High 10.9-14.2 [facility] Comment on above: Performed By: #### 2 [id number] #### [facility] [address] [place] [address] Hematocrit (Bld) [Volume fraction] 39.3 % Normal 34.0-46.0 [facility] Comment on above: Performed By: #### 2 650653 #### [facility] [address] [place] [address] Hemoglobin (Bld) [Mass/Vol] 13.0 g/dL Normal 12.0-16.0 [facility] Comment on above: Performed By: #### 2 530891 #### [facility] [address] [place] [address] Lymph Absolute 0.6 E9/L Low 1.0-4.0 [facility] Comment on above: Performed By: #### 2 569774 #### [facility] [address] [place] [address] Lymphocytes/100 WBC (Bld) 6.3 % Low 14.0-50.0 [facility] Comment on above: Performed By: #### 2 112941 #### [facility] [address] [place] [address] MCH (RBC) [Entitic mass] 30.4 pg Normal 27.0-34.0 [facility] Comment on above: Performed By: #### 2 480749 #### [facility] [address] [place] [address] MCHC (RBC) [Mass/Vol] 33.2 g/dL Normal 31.4-36.0 [facility] Comment on above: Performed By: #### 2 053752 #### [facility] [address] [place] [address] MCV (RBC) [Entitic vol] 91.6 fL Normal 80.0-100.0 [facility] Comment on above: Performed By: #### 2 681911 #### [facility] [address] [place] [address] Uvalde Absolute 0.5 E9/L Normal 0.2-1.0 [facility] Comment on above: Performed By: #### 2 [id number] #### [facility] [address] [place] [address] Monocytes/100 WBC (Bld) 5.0 % Normal 4.0-14.0 [facility] Comment on above: Performed By: #### 2 [id number] #### [facility] [address] [place] [address] Neutro Absolute 8.3 E9/L High 2.0-7.5 [facility] Comment on above: Performed By: #### 2 608299 #### [facility] [address] [place] [address] Neutro Auto 88.1 % High 36.0-75.0 [facility] Comment on above: Performed By: #### 2 302700 #### [facility] [address] [place] [address] Platelet 286.0 E9/L Normal 150.0-500.0 [facility] Comment on above: Performed By: #### 2 989358 #### [facility] [address] [place] [address] Platelet mean volume (Bld) [Entitic vol] 7.3 fL Normal 6.4-10.8 [facility] Comment on above: Performed By: #### 2 406208 #### [facility] [address] [place] [address] RBC 4.3 E12/L Normal 4.3-5.9 [facility] Comment on above: Performed By: #### 2 946946 #### [facility] [address] [place] [address] WBC 9.4 E9/L Normal 4.0-11.0 [facility] Comment on above: Performed By: #### 2 998967 #### [facility] [address] [place] [address] CHEMISTRYOrdered By: Vandana ROP User on 12-29-2024 Glucose [Mass/Vol] 200 mg/dL High 55 - 99 mg/dL FTM C POC Subsection Comment on above: Result Comment: Loraine peralta RN/ POC UsernamJUSTYNA Hearn Invalid Interpretation Code [facility] POC Subsection Sodium [Moles/Vol] [id number] mmol/L Invalid Interpretation Code [facility] POC Subsection Sodium [Moles/Vol] 858246574791 mmol/L Invalid Interpretation Code [facility] POC Subsection Glucose [Mass/Vol] 166 mg/dL High 55 - 99 mg/dL [facility] C POC Subsection Comment on above: Result Comment: Loraine peralta RN/ POC Username HAYDEN MAYERS Invalid Interpretation Code [facility] POC Subsection Sodium [Moles/Vol] 568033336 mmol/L Invalid Interpretation Code [facility] POC Subsection Sodium [Moles/Vol] 347036103154 mmol/L Invalid Interpretation Code [facility] POC Subsection CHEMISTRYOrdered By: SYSTEM SYSTEM [...] 12-03 Glucose [Mass/Vol] 200 mg/dL High 55-99 [facility] Comment on above: Result Comment: Loraine peralta RN/ Performed By: #### 2 [id number] #### [facility] [address] [place] [address] Glucose [Mass/Vol] 166 mg/dL High 55-99 [facility] Comment on above: Result Comment: Loraine peralta RN/ Performed By: #### 2 [id number] #### [facility] [address] [place] [address] HEMATOLOGYOrdered By: SYSTEM SYSTEM on 12-29-2024 Basophils/100 [...] night. Discuss inceased lasix dose with your blocker and sewer. May discuss adding Entresto or Losartan as outpatient too to help with your heart failure. Return to ER if symptoms return or wrosen Previously Scheduled Follow-Up Appointments Tuesday 2:00 PM EDT With: David LEONARD, Rick Gipson Where: [facility] [place] Tuesday 1:40 PM EDT With: Yocasta MSN, HEATER OPERATOR HELPER-BUFFER OPERATOR, Myron Hamilton Where: [facility] [place] [address] [place] [address]- Tuesday 12:30 PM EDT With: Where: [facility] New Follow Up Appointments after Discharge Follow Up with Follow up with your blocker and sewer as Scheduled January 01 When: Follow Up with Myron Rust When: Within 7 to 10 days Comments: Call for followup appointment Where: [address] [place] [phone] Business (1) Medications What How Much When Why Instructions Next Dose New azithromycin (azithromycin 250 mg Tab) 1 Tablets By Mouth Every day COPD with acute exacerbation Duration: 3 Days Pickup at [email or web address] #16 New predniSONE (predniSONE 10 mg Tab) 1 Tablets By Mouth As Directed COPD with acute exacerbation 4 tabs for 2 days,3 tabs for 2 days,2 tabs for 2 days,1 tab for 2 days Pickup at [facility] [place] [facility] #16 Changed cephalexin (cephalexin 500 mg Cap) 1 Capsules By Mouth 4 times a day Cellulitis of leg Duration: 8 Days Pickup at [facility] [place] [facility] #16 Changed furosemide (furosemide 40 mg Tab) 1 Tablets By Mouth 2 times a day Peripheral edema Acute on chronic heart failure with preserved ejection fraction Pickup at [facility] #16 Unchanged albuterol (Albuterol (Eqv-Ventolin HFA) 90 mcg/ inh inhalation aerosol) 2 Puffs Inhalation Every 6 hours as needed for Shortness of breath or wheezing COPD with acute exacerbation Pickup at [facility] #16 Unchanged aripiprazole (Abilify 5 mg Tab) [...] and P (more content not included)... Normal [facility] eGFRon 12-29-2024 eGFR 98 mL/min/1.73 m2 Normal >=59 [facility] Comment on above: Performed By: #### 1 [id number] #### [facility] [address] [place] [address] CBC w/ Auto Diffon 5 Basophil Absolute 0.1 E9/L Normal 0.0-0.2 [facility] Comment on above: Performed By: #### 2 180414 #### [facility] [address] [place] [address] Basophils/100 WBC (Bld) 1.6 % Normal 0.0-2.0 [facility] Comment on above: Performed By: #### 2 684059 #### [facility] [address] [place] [address] Eos Absolute 0.0 E9/L Normal 0.0-0.5 [facility] Comment on above: Performed By: #### 2 809694 #### [facility] [address] [place] [address] Eosinophils/100 WBC (Bld) 0.1 % Normal 0.0-8.0 [facility] Comment on above: Performed By: #### 2 871689 #### [facility] [address] [place] [address] Erythrocyte distribution width (RBC) [Ratio] 15.7 % High 10.9-14.2 [facility] Comment on above: Performed By: #### 2 267172 #### [facility] [address] [place] [address] Hematocrit (Bld) [Volume fraction] 40.0 % Normal 34.0-46.0 [facility] Comment on above: Performed By: #### 2 980257 #### [facility] [address] [place] [address] Hemoglobin (Bld) [Mass/Vol] 13.7 g/dL Normal 12.0-16.0 [facility] Comment on above: Performed By: #### 2 816792 #### [facility] [address] [place] [address] Lymph Absolute 0.4 E9/L Low 1.0-4.0 [facility] Comment on above: Performed By: #### 2 159157 #### [facility] [address] [place] [address] Lymphocytes/100 WBC (Bld) 4.8 % Low 14.0-50.0 [facility] Comment on above: Performed By: #### 2 440612 #### [facility] [address] [place] [address] MCH (RBC) [Entitic mass] 31.4 pg Normal 27.0-34.0 [facility] Comment on above: Performed By: #### 2 642512 #### [facility] [address] [place] [address] MCHC (RBC) [Mass/Vol] 34.3 g/dL Normal 31.4-36.0 [facility] Comment on above: Performed By: #### 2 212160 #### [facility] [address] [place] [address] MCV (RBC) [Entitic vol] 91.7 fL Normal 80.0-100.0 [facility] Comment on above: Performed By: #### 2 873405 #### [facility] [address] [place] [address] Uvalde Absolute 0.1 E9/L Low 0.2-1.0 [facility] Comment on above: Performed By: #### 2 456225 #### [facility] [address] [place] [address] Monocytes/100 WBC (Bld) 1.8 % Low 4.0-14.0 [facility] Comment on above: Performed By: #### 2 334668 #### [facility] [address] [place] [address] Neutro Absolute 7.4 E9/L Normal 2.0-7.5 [facility] Comment on above: Performed By: #### 2 534585 #### [facility] [address] [place] [address] Neutro Auto 91.7 % High 36.0-75.0 [facility] Comment on above: Performed By: #### 2 631441 #### [facility] [address] [place] [address] Platelet 274.0 E9/L Normal 150.0-500.0 [facility] Comment on above: Performed By: #### 2 864586 #### [facility] [address] [place] [address] Platelet mean volume (Bld) [Entitic vol] 7.4 fL Normal 6.4-10.8 [facility] Comment on above: Performed By: #### 2 443255 #### [facility] [address] [place] [address] RBC 4.4 E12/L Normal 4.3-5.9 [facility] Comment on above: Performed By: #### 2 037316 #### [facility] [address] [place] [address] WBC 8.1 E9/L Normal 4.0-11.0 [facility] Comment on above: Performed By: #### 2 969104 #### [facility] [address] [place] [address] CHEMISTRYOrdered By: Lab ROP User on 12-28-2024 Glucose [Mass/Vol] 217 mg/dL High 55 - 99 mg/dL [facility] C POC Subsection Comment on above: Result Comment: Loraine peralta RN/ POC Username HAYDEN MAYERS Invalid Interpretation Code [facility] POC Subsection Sodium [Moles/Vol] [id number] mmol/L Invalid Interpretation Code [facility] POC Subsection Sodium [Moles/Vol] [id number] mmol/L Invalid Interpretation Code [facility] POC Subsection CHEMISTRYOrdered By: SYSTEM SYSTEM [...] 12-28-2024 Albumin [Mass/Vol] 4.5 g/dL Normal 3.3-5.0 [facility] Comment on above: Performed By: #### 2 512730 #### [facility] [address] [place] [address] Albumin/Globulin [Mass ratio] 1.4 {ratio} Normal 1.1-2.2 [facility] Comment on above: Performed By: #### 2 924239 #### [facility] [address] [place] [address] Alk Phos 62 Int._Unit/L Normal 21-98 [facility] Comment on above: Performed By: #### 2 804868 #### [facility] [address] [place] [address] ALT 24 Int._Unit/L Normal 6-46 [facility] Comment on above: Performed By: #### 2 034603 #### [facility] [address] [place] [address] Anion gap [Moles/Vol] 14 mmol/L Normal 6-16 [facility] Comment on above: Performed By: #### 2 967139 #### [facility] [address] [place] [address] AST 20 Int._Unit/L Normal 5-43 [facility] Comment on above: Performed By: #### 2 803523 #### [facility] [address] [place] [address] Bili Total 0.4 mg/dL Normal 0.0-1.1 [facility] Comment on above: Performed By: #### 2 928565 #### [facility] [address] [place] [address] BUN/Creat Ratio 20 No Units Normal 10-20 [facility] Comment on above: Performed By: #### 2 511619 #### [facility] [address] [place] [address] Calcium [Mass/Vol] 9.2 mg/dL Normal 8.9-11.1 [facility] Comment on above: Performed By: #### 2 910684 #### [facility] [address] [place] [address] Chloride [Moles/Vol] 97 mmol/L Low 101-111 [facility] Comment on above: Performed By: #### 2 159868 #### [facility] [address] [place] [address] CO2 [Moles/Vol] 28 mmol/L Normal 21-31 [facility] Comment on above: Performed By: #### 2 645277 #### [facility] [address] [place] [address] Creatinine [Mass/Vol] 0.7 mg/dL Normal 0.5-1.3 [facility] Comment on above: Performed By: #### 2 591365 #### [facility] [address] [place] [address] Globulin (S) [Mass/Vol] 3.3 g/dL Normal 1.4-4.0 [facility] Comment on above: Performed By: #### 2 833805 #### [facility] [address] [place] [address] Glucose [Mass/Vol] 157 mg/dL Normal 55-199 [facility] Comment on above: Performed By: #### 2 181940 #### [facility] [address] [place] [address] Potassium [Moles/Vol] 4.0 mmol/L Normal 3.5-5.3 [facility] Comment on above: Performed By: #### 2 330712 #### [facility] [address] [place] [address] Protein [Mass/Vol] 7.8 g/dL Normal 6.0-7.8 [facility] Comment on above: Performed By: #### 2 681879 #### [facility] [address] [place] [address] Sodium [Moles/Vol] 135 mmol/L Normal 135-145 [facility] Comment on above: Performed By: #### 2 511381 #### [facility] [address] [place] [address] Urea nitrogen [Mass/Vol] 14 mg/dL Normal 5-21 [facility] Comment on above: Performed By: #### 2 231227 #### [facility] [address] [place] [address] Capillary Glucose POCon 12-03 Glucose [Mass/Vol] 217 mg/dL High 55-99 [facility] Comment on above: Result Comment: Loraine GODOY Performed By: #### 2 [id number] #### [facility] [address] [place] [address] Glucose [Mass/Vol] 193 mg/dL High 55-99 [facility] Comment on above: Result Comment: Loraine GODOY Performed By: #### 2 [id number] #### [facility] [address] [place] [address] Glucose [Mass/Vol] 162 mg/dL High 55-99 [facility] Comment on above: Result Comment: Loraine peralta RN/ Performed By: #### 2 [id number] #### [facility] [address] [place] [address] Glucose [Mass/Vol] 154 mg/dL High 55-99 [facility] Comment on above: Result Comment: Loraine GODOY Performed By: #### 2 [id number] #### [facility] [address] [place] [address] Coding Queryon 12-28-2024 Coding Query Coding Query [...] desired or expected. Thank you!catarino [address] [facility] HEMATOLOGYOrdered By: SYSTEM SYSTEM on 12-28-2024 [...] Janak e Manageron 12-28-2024 Interdisciplinary Note - Mangle Feeder Interdisciplinary Note - Mangle Feeder CRM to room 321 Patient is awake, [...] huddle with hospitalists ECHO today Possible weekend [facility] Comment on above: Result Comment: Elec tronically Signed By: Clara Gold\.br\Date and Time Signed: 12/28/24 12:02 EDT Interdisciplinary Note - Mangle Feeder Interdisciplinary Note - Mangle Feeder CRM to room 321 Patient is awake, [...] updates at 10 AM huddle with hospitalists [facility] Comment on above: Result Comment: [...] Signed by: Sathya Christianson MD Transcribed by: KARSTNE Technologist: RENATA Normal [facility] eGFRon 12-28-2024 eGFR 98 mL/min/1.73 m2 Normal >=59 [facility] Comment on above: Performed By: #### 1 [id number] #### [facility] [address] [place] [address] BMPon 12-27-2024 Anion gap [Moles/Vol] 12 mmol/L Normal 6-16 [facility] Comment on above: Performed By: #### 2 [id number] #### [facility] [address] [place] [address] BUN/Creat Ratio 18 No Units Normal 10-20 [facility] Comment on above: Performed By: #### 2 [id number] #### [facility] [address] [place] [address] Calcium [Mass/Vol] 8.9 mg/dL Normal 8.9-11.1 [facility] Comment on above: Performed By: #### 2 [id number] #### [facility] [address] [place] [address] Chloride [Moles/Vol] 100 mmol/L Low 101-111 [facility] Comment on above: Performed By: #### 2 [id number] #### [facility] [address] [place] [address] CO2 [Moles/Vol] 27 mmol/L Normal 21-31 [facility] Comment on above: Performed By: #### 2 [id number] #### [facility] [address] [place] [address] Creatinine [Mass/Vol] 0.8 mg/dL Normal 0.5-1.3 [facility] Comment on above: Performed By: #### 2 [id number] #### [facility] [address] [place] [address] Glucose [Mass/Vol] 147 mg/dL Normal 55-199 [facility] Comment on above: Performed By: #### 2 [id number] #### [facility] [address] [place] [address] Potassium [Moles/Vol] 3.9 mmol/L Normal 3.5-5.3 [facility] Comment on above: Performed By: #### 2 [id number] #### [facility] [address] [place] [address] Sodium [Moles/Vol] 135 mmol/L Normal 135-145 [facility] Comment on above: Performed By: #### 2 [id number] #### [facility] [address] [place] [address] Urea nitrogen [Mass/Vol] 14 mg/dL Normal 5-21 [facility] Comment on above: Performed By: #### 2 [id number] #### [facility] [address] [place] [address] BNPon 12-27-2024 Int Ctr BNP Pass Normal [facility] Comment on above: Performed By: #### 1 [id number] #### [facility] [address] [place] [address] Natriuretic peptide B (Bld) [Mass/Vol] 20 pg/mL Normal 5-80 [facility] Comment on above: Performed By: #### 1 [id number] #### [facility] [address] [place] [address] CBC w/ Auto Diffon 5 Basophil Absolute 0.1 E9/L Normal 0.0-0.2 [facility] Comment on above: Performed By: #### 2 [id number] #### [facility] [address] [place] [address] Basophils/100 WBC (Bld) 0.8 % Normal 0.0-2.0 [facility] Comment on above: Performed By: #### 2 [id number] #### [facility] [address] [place] [address] Eos Absolute 0.1 E9/L Normal 0.0-0.5 [facility] Comment on above: Performed By: #### 2 [id number] #### [facility] [address] [place] [address] Eosinophils/100 WBC (Bld) 1.0 % Normal 0.0-8.0 [facility] Comment on above: Performed By: #### 2 599885 #### [facility] [address] [place] [address] Erythrocyte distribution width (RBC) [Ratio] 15.6 % High 10.9-14.2 [facility] Comment on above: Performed By: #### 2 [id number] #### [facility] [address] [place] [address] Hematocrit (Bld) [Volume fraction] 37.2 % Normal 34.0-46.0 [facility] Comment on above: Performed By: #### 2 908405 #### [facility] [address] [place] [address] Hemoglobin (Bld) [Mass/Vol] 13.2 g/dL Normal 12.0-16.0 [facility] Comment on above: Performed By: #### 2 705572 #### [facility] [address] [place] [address] Lymph Absolute 0.9 E9/L Low 1.0-4.0 [facility] Comment on above: Performed By: #### 2 [id number] #### [facility] [address] [place] [address] Lymphocytes/100 WBC (Bld) 12.1 % Low 14.0-50.0 [facility] Comment on above: Performed By: #### 2 [id number] #### [facility] [address] [place] [address] MCH (RBC) [Entitic mass] 32.2 pg Normal 27.0-34.0 [facility] Comment on above: Performed By: #### 2 [id number] #### [facility] [address] [place] [address] MCHC (RBC) [Mass/Vol] 35.5 g/dL Normal 31.4-36.0 [facility] Comment on above: Performed By: #### 2 [id number] #### [facility] [address] [place] [address] MCV (RBC) [Entitic vol] 90.8 fL Normal 80.0-100.0 [facility] Comment on above: Performed By: #### 2 149219 #### [facility] [address] [place] [address] Uvalde Absolute 0.4 E9/L Normal 0.2-1.0 [facility] Comment on above: Performed By: #### 2 [id number] #### [facility] [address] [place] [address] Monocytes/100 WBC (Bld) 5.3 % Normal 4.0-14.0 [facility] Comment on above: Performed By: #### 2 134715 #### [facility] [address] [place] [address] Neutro Absolute 5.8 E9/L Normal 2.0-7.5 [facility] Comment on above: Performed By: #### 2 047626 #### [facility] [address] [place] [address] Neutro Auto 80.8 % High 36.0-75.0 [facility] Comment on above: Performed By: #### 2 270244 #### [facility] [address] [place] [address] Platelet 240.0 E9/L Normal 150.0-500.0 [facility] Comment on above: Performed By: #### 2 424130 #### [facility] [address] [place] [address] Platelet mean volume (Bld) [Entitic vol] 7.2 fL Normal 6.4-10.8 [facility] Comment on above: Performed By: #### 2 098696 #### [facility] [address] [place] [address] RBC 4.1 E12/L Low 4.3-5.9 [facility] Comment on above: Performed By: #### 2 715682 #### [facility] [address] [place] [address] WBC 7.2 E9/L Normal 4.0-11.0 [facility] Comment on above: Performed By: #### 2 225252 #### [facility] [address] [place] [address] CHEMISTRYOrdered By: SYSTEM SYSTEM on 12-27-2024 Troponin [...] High Sensitivity Troponin I Instructions For Use, [employer], February 2018) Troponin HS 28.80 pg/mL High 10.10 - 27.10 pg/mL [facility] Comment on above: Interpretive Data: T he 95% CI (Confidence Interval) PPV (Positive Predictive Value) for myocardial infarction in females is 38 pg/mL, in males 51 pg/mL. The results should be used in conjunction with clinical conditions of myocardial infarction. (Access High Sensitivity Troponin I Instructions For Use, [employer], February 2018) Troponin HS 28.80 pg/mL High 10.10 - 27.10 pg/mL [facility] Comment on above: Interpretive Data: T he 95% CI (Confidence Interval) PPV (Positive Predictive Value) for myocardial infarction in females is 38 pg/mL, in males 51 pg/mL. The results should be used in conjunction with clinical conditions of myocardial infarction. (Access High Sensitivity Troponin I Instructions For Use, [employer], February 2018) Albumin [Mass/Vol] 4.3 g/dL Normal [...] 20 pg/mL Normal 5 - 80 pg/mL [facility] COAGULATIONOrdered By: Liv John on 12-27-2024 aPTT Coag (PPP) [Time] 31.4 s Normal 25.1 - 36.5 second(s) [facility] Auto Co[facility] Comment on above: Interpretive [...] the same coagulation reagent and instrumentation as [facility]. Currently there are no coagulation studies available worldwide for children to 14 days, and no normal ranges. Heparin therapeutic range (represented by Anti-Factor Xa activity of 0.2 - 0.4 U/mL) corresponds to PTT of 56.6 - 109.0 sec. INR Coag (PPP) [Relative time] 0.96 {INR} Invalid Interpretation Code [facility] Comment on above: Interpretive Data: I NR results are specifically intended to assess patients stabilized on long-term Anticoagulation therapy suggested INR s Less Intensive Anticoagulation 2.0 3.0 Conventional Range 3.0 4.5 PT Coag (PPP) [Time] 10.7 s Normal 9.4 - 1 2.5 second(s) [facility] Auto Coag Comment on above: Interpretive [...] the same coagulation reagent and instrumentation as [facility]. Currently there are no coagulation studies available worldwide for children to 14 days, and no normal ranges. Capillary Glucose POCon 12-03 Glucose [Mass/Vol] 157 mg/dL High 55-99 [facility] Comment on above: Result Comment: Loraine GODOY Performed By: #### 2 [id number] #### [facility] [address] [place] [address] Glucose [Mass/Vol] 87 mg/dL Normal 55-99 [facility] Comment on above: Result Comment: Loraine GODOY Performed By: #### 2 [id number] #### [facility] [address] [place] [address] ED Clinical Summaryon 2024 ED Clinical Summary ED Clinical Summary [address] [address] ED Clinical Summary Person Information [facility]: [facility] Age[facility] 64 Years : 1960 Sex: Female Language: Sierra Leonean PCP: Yocasta SMITH, HEATER OPERATOR HELPER-BUFFER OPERATORMyron Marital Status: Single Visit Id: Visit Reason: Wheezing; Shortness of breath; Edema; cp, sob, swelled feet and legs Speciality: Acuity: 2 Enc Type: Inpatient Med Service: Medical Arrival: 12/27/2024 10:31:36 Discharge: LOS: 000 04:47 Checkin: 12/27/2024 10:31:36 Checkout: 12/27/2024 15:18:27 Dispo Type: Admitted as IP to this [facility] EVENTS: Event Name Event Status Request Date/Time [...] 12/27/2024 14:13:03 [place] Request 12/27/2024 14:13:45 ADDRESS: [facility] [place] [id number] PHYS DOC NOTES: MEDICAL INFORMATION: Prescriptions Given: [...] Misc Pr (more content not included)... Normal [facility] ED Note-Physicianon 12-28-19 ED Note-Physician ED Note-Physician Basic Information Time Seen: Mendez SpainWhit 12/27/2024 10:36 Chief Complaint Pt presents to [...] and Complexity of Problems Differential Diagnosis: [] MDM Data External documents reviewed: [] My EKG [...] EDT, STAT, (more content not included)... Normal [facility] Comment on above: Result Comment: Elec tronically Signed By: Mendez Spain, Whit Thurman\.br\Date and Time Signed: 12/27/24 13:59 EDT ED Patient Education Noteon 12-27-2024 ED Patient Education Note ED Patient Education Note Normal [facility] ED Patient Summaryon 025 ED Patient Summary ED Patient Summary [place] [id number] Patient Discharge Instructions Person Information Name: CARMEN [...] 50.0-59.9, adult Primary Care Physician: Yocasta MSN, HEATER OPERATOR HELPER-BUFFER OPERATOR, Myron Hamilton Provider Information Primary Provider: Whit Simms M.D. Advanced Career Manager:None The exam and treatment you received in the Emergency Department were for an urgent problem and are not intended as complete care. It is important that you follow up with a doctor, nurse practitioner, or physician???s workers compensation claims assistant for ongoing care. If your symptoms become worse or you do not improve as expected and you are unable to reach your usual health care provider, you should return to the Emergency Department. We are available 24 hours a day. LADI CARMEN has been given the following list of [...] opioids can be used to help relieve mblcbmze-tq-pmfffe pain and are often prescribed following a [...] Administration (www (more content not included)... Normal [facility] HEMATOLOGYOrdered By: SYSTEM SYSTEM on 12-27-2024 [...] 12-27-2024 Albumin [Mass/Vol] 4.3 g/dL Normal 3.3-5.0 [facility] Comment on above: Performed By: #### 2 [id number] #### [facility] [address] [place] [address] Albumin/Globulin [Mass ratio] 1.4 {ratio} Normal 1.1-2.2 [facility] Comment on above: Performed By: #### 2 [id number] #### [facility] [address] [place] [address] Alk Phos 62 Int._Unit/L Normal 21-98 [facility] Comment on above: Performed By: #### 2 [id number] #### [facility] [address] [place] [address] ALT 23 Int._Unit/L Normal 6-46 [facility] Comment on above: Performed By: #### 2 365574 #### [facility] [address] [place] [address] AST 21 Int._Unit/L Normal 5-43 [facility] Comment on above: Performed By: #### 2 [id number] #### [facility] [address] [place] [address] Bili Direct 0.1 mg/dL Normal 0.0-0.4 [facility] Comment on above: Performed By: #### 2 [id number] #### [facility] [address] [place] [address] Bili Indirect 0.3 mg/dL Normal 0.1-0.9 [facility] Comment on above: Performed By: #### 2 832327 #### [facility] [address] [place] [address] Bili Total 0.4 mg/dL Normal 0.0-1.1 [facility] Comment on above: Performed By: #### 2 [id number] #### [facility] [address] [place] [address] Globulin (S) [Mass/Vol] 3.0 g/dL Normal 1.4-4.0 [facility] Comment on above: Performed By: #### 2 [id number] #### [facility] [address] [place] [address] Protein [Mass/Vol] 7.3 g/dL Normal 6.0-7.8 [facility] Comment on above: Performed By: #### 2 [id number] #### [facility] [address] [place] [address] Interdisciplinary Note - Janak e Manageron 12-27-2024 Interdisciplinary Note - Mangle Feeder Interdisciplinary Note - Mangle Feeder CRM did chart review Patient was just admitted this afternoon CRM will round for DC needs on 12/[address] [facility] Comment on above: Result Comment: Elec tronically Signed By: Clara Gold\.br\Date and Time Signed: 12/27/24 16:41 EDT Lactic Acidon 12-27-2024 Lactic Acid Lvl 1.2 mmol/L Normal 0.5-2.2 [facility] Comment on above: Performed By: #### 2 [id number] #### [facility] [address] [place] [address] No Panel InformationOrdered By: [facility] on 12-27-2024 Blood Culture Charcoal No growth at 2 days. Final to follow at 7 days. [facility] Blood Culture Charcoal No growth at 2 days. Final to follow at 7 days. [facility] PT & PTTon 12-27-2024 INR Coag (PPP) [Relative time] 0.96 {INR} Invalid Interpretation Code [facility] Comment on above: Result Comment: INR results are specifically intended to assess patients stabilized on long-term Anticoagulation therapy suggested INR???s ???Less Intensive Anticoagulation??? 2.0 ??? 3.0 Conventional Range 3.0 ??? 4.5 Performed By: #### 1 [id number] #### [facility] [address] [place] [address] PT 10.7 second(s) Normal 9.4-12.5 [facility] Comment on above: Result Comment: 15 d [...] the same coagulation reagent and instrumentation as [facility]. Currently there are no coagulation studies available worldwide for children to 14 days, and no normal ranges. Performed By: #### 1 [id number] #### [facility] [address] [place] [address] PTT 31.4 second(s) Normal 25.1-36.5 [facility] Comment on above: Result Comment: Para meter [...] the same coagulation reagent and instrumentation as [facility]. Currently there are no coagulation studies available worldwide for children to 14 days, and no normal ranges. Heparin therapeutic range (represented by Anti-Factor Xa activity of 0.2 - 0.4 U/mL) corresponds to PTT of 56.6 - 109.0 sec. Performed By: #### 1 [id number] #### [facility] [address] [place] [address] Procalcitoninon 12-27-2024 Procalcitonin .08 ng/mL Normal .00-.50 [facility] Comment on above: Result Comment: <0.5 [...] to 24 hours. Performed By: #### 2 [id number] #### [facility] [address] [place] [address] Respiratory Panel by PCRon 0 12-27-2024 Adenovirus Not detected Normal [facility] Comment on above: Result Comment: Test ing was performed using nucleic acid amplification including Influenza A, Influenza A H1, Influenza A H3, Influenza B, RSV A, RSV B, Adenovirus, Human Metapneumovirus, Parainfluenza 1,2,3, and 4, Rhinovirus, Bordetella parapertussis/bronchiseptica, Bordetella holmesii, and Bordetella pertussis. Performed By: #### 1 [id number] #### [facility] [address] [place] [address] B. holmesii Not detected Normal [facility] Comment on above: Performed By: #### 1 [id number] #### [facility] [address] [place] [address] B. parapertussis/bronch iseptica Not detected Normal Not Detected [facility] Comment on above: Performed By: #### 1 [id number] #### [facility] [address] [place] [address] B. pertussis Not detected Normal Not Detected [facility] Comment on above: Performed By: #### 1 [id number] #### [facility] [address] [place] [address] Human Metapneumovirus Not detected Normal [facility] Comment on above: Result Comment: This test result should be correlated with clinical presentations and medical history by a healthcare provider to determine its clinical significance. Performed By: #### 1 [id number] #### [facility] [address] [place] [address] Influenza A Not detected Normal [facility] Comment on above: Performed By: #### 1 [id number] #### [facility] [address] [place] [address] Influenza A (subtype H1) Not detected Normal [facility] Comment on above: Performed By: #### 1 [id number] #### [facility] [address] [place] [address] Influenza A (subtype H3) Not detected Normal [facility] Comment on above: Performed By: #### 1 [id number] #### [facility] [address] [place] [address] Influenza B Not detected Normal [facility] Comment on above: Performed By: #### 1 [id number] #### [facility] [address] [place] [address] Parainfluenza [address] [facility] Comment on above: Performed By: #### 1 [id number] #### [facility] [address] [place] [address] Parainfluenza [address] [facility] Comment on above: Performed By: #### 1 [id number] #### [facility] [address] [place] [address] Parainfluenza [address] [facility] Comment on above: Performed By: #### 1 [id number] #### [facility] [address] [place] [address] Parainfluenza [address] [facility] Comment on above: Performed By: #### 1 [id number] #### [facility] [address] [place] [address] Resp Panel Intrl QC Pass Normal [facility] Comment on above: Performed By: #### 1 [id number] #### [facility] [address] [place] [address] Rhinovirus Not detected Normal [facility] Comment on above: Performed By: #### 1 [id number] #### [facility] [address] [place] [address] RSV A Not detected Normal [facility] Comment on above: Performed By: #### 1 [id number] #### [facility] [address] [place] [address] RSV B Not detected Normal [facility] Comment on above: Performed By: #### 1 [id number] #### [facility] [address] [place] [address] TSH With T4fr Reflexon 12-27 TSH Qn 2.71 m[IU]/L Normal 0.34-5.60 [facility] Comment on above: Performed By: #### 1 [id number] #### [facility] [address] [place] [address] Troponin 0 Hr.on 12-27-2024 Troponin HS 32.40 pg/mL High 10.10-27.10 [facility] Comment on above: Result Comment: The 95% CI (Confidence Interval) PPV (Positive Predictive Value) for myocardial infarction in females is 38 pg/mL, in males 51 pg/mL. The results should be used in conjunction with clinical conditions of myocardial infarction. (Access High Sensitivity Troponin I Instructions For Use, [employer], February 2018) Performed By: #### 1 [id number] #### [facility] [address] [place] [address] Troponin 1 Hr.on 12-27-2024 Troponin HS 28.80 pg/mL High 10.10-27.10 [facility] Comment on above: Order Comment: 1143 Result Comment: The 95% CI (Confidence Interval) PPV (Positive Predictive Value) for myocardial infarction in females is 38 pg/mL, in males 51 pg/mL. The results should be used in conjunction with clinical conditions of myocardial infarction. (Access High Sensitivity Troponin I Instructions For Use, [employer], February 2018) Performed By: #### 1 [id number] #### [facility] [address] [place] [address] Troponin 3 Hr.on 12-27-2024 Troponin HS 28.80 pg/mL High 10.10-27.10 [facility] Comment on above: Result Comment: The 95% CI (Confidence Interval) PPV (Positive Predictive Value) for myocardial infarction in females is 38 pg/mL, in males 51 pg/mL. The results should be used in conjunction with clinical conditions of myocardial infarction. (Access High Sensitivity Troponin I Instructions For Use, [employer], February 2018) Performed By: #### 1 [id number] #### [facility] [address] [place] [address] Troponin 6 Hr.on 12-27-2024 Troponin HS 27.70 pg/mL High 10.10-27.10 [facility] Comment on above: Result Comment: The 95% CI (Confidence Interval) PPV (Positive Predictive Value) for myocardial infarction in females is 38 pg/mL, in males 51 pg/mL. The results should be used in conjunction with clinical conditions of myocardial infarction. (Access High Sensitivity Troponin I Instructions For Use, [employer], February 2018) Performed By: #### 1 [id number] #### [facility] [address] [place] [address] XR Chest Single Viewon 12-27 XR Chest [...] MD Transcribed by: KARSTEN Technologist: DEDRICK Normal [facility] eGFRon 12-27-2024 eGFR 83 mL/min/1.73 m2 Normal >=59 [facility] Comment on above: Performed By: #### 1 [id number] #### [facility] [address] [place] [address] Ambulatory Visit Summaryon 0 12-19-2024 Ambulatory Visit Summary Ambulatory Visit Summary LADICARMEN :1960 Visit Date:12/19/2024 Ambulatory Visit Instructions Your [...] Myron ESPINO This Is Your Medications List Contact prescribing [...] Appointments Tuesday 2:00 PM EDT With: Rick Hrenandez PA-C Where: [facility] Tuesday 1:40 PM EDT With: Yocasta SMITH, Myron ESPINO Where: [place] [address] [place] [address]- You Need to Schedule the Following Appointments Follow Up with Yocasta MSN, HEATER OPERATOR HELPER-BUFFER OPERATOR, Myron Hamilton When: In 2 weeks Comments: chronic care Where: [address] [place] [phone] You Need to Complete the Following Microalbumin [...] See instru (more content not included)... Normal [facility] CHEMISTRYOrdered By: SYSTEM SYSTEM on 12-19-2024 [...] (Bld) [Mass fraction] 6.1 % High <=5.9% [facility] ChemAutoSS CMPon 12-19-2024 Albumin [Mass/Vol] 4.4 g/dL Normal 3.3-5.0 [facility] Comment on above: Performed By: #### 2 [id number] #### [facility] [address] [place] [address] Albumin/Globulin [Mass ratio] 1.5 {ratio} Normal 1.1-2.2 [facility] Comment on above: Performed By: #### 2 [id number] #### [facility] [address] [place] [address] Alk Phos 60 Int._Unit/L Normal 21-98 [facility] Comment on above: Performed By: #### 2 881378 #### [facility] [address] [place] [address] ALT 31 Int._Unit/L Normal 6-46 [facility] Comment on above: Performed By: #### 2 130618 #### [facility] [address] [place] [address] Anion gap [Moles/Vol] 13 mmol/L Normal 6-16 [facility] Comment on above: Performed By: #### 2 899609 #### [facility] [address] [place] [address] AST 29 Int._Unit/L Normal 5-43 [facility] Comment on above: Performed By: #### 2 188255 #### [facility] [address] [place] [address] Bili Total 0.4 mg/dL Normal 0.0-1.1 [facility] Comment on above: Performed By: #### 2 059119 #### [facility] [address] [place] [address] BUN/Creat Ratio 11 No Units Normal 10-20 [facility] Comment on above: Performed By: #### 2 721625 #### [facility] [address] [place] [address] Calcium [Mass/Vol] 9.4 mg/dL Normal 8.9-11.1 [facility] Comment on above: Performed By: #### 2 490866 #### [facility] [address] [place] [address] Chloride [Moles/Vol] 95 mmol/L Low 101-111 [facility] Comment on above: Performed By: #### 2 601628 #### [facility] [address] [place] [address] CO2 [Moles/Vol] 30 mmol/L Normal 21-31 [facility] Comment on above: Performed By: #### 2 739482 #### [facility] [address] [place] [address] Creatinine [Mass/Vol] 0.7 mg/dL Normal 0.5-1.3 [facility] Comment on above: Performed By: #### 2 056344 #### [facility] [address] [place] [address] Globulin (S) [Mass/Vol] 2.9 g/dL Normal 1.4-4.0 [facility] Comment on above: Performed By: #### 2 087774 #### [facility] [address] [place] [address] Glucose [Mass/Vol] 88 mg/dL Normal 55-199 [facility] Comment on above: Performed By: #### 2 744779 #### [facility] [address] [place] [address] Potassium [Moles/Vol] 4.0 mmol/L Normal 3.5-5.3 [facility] Comment on above: Performed By: #### 2 102519 #### [facility] [address] [place] [address] Protein [Mass/Vol] 7.3 g/dL Normal 6.0-7.8 [facility] Comment on above: Performed By: #### 2 033723 #### [facility] [address] [place] [address] Sodium [Moles/Vol] 134 mmol/L Low 135-145 [facility] Comment on above: Performed By: #### 2 243463 #### [facility] [address] [place] [address] Urea nitrogen [Mass/Vol] 8 mg/dL Normal 5-21 [facility] Comment on above: Performed By: #### 2 943453 #### [facility] [address] [place] [address] Family Medicine Office/Clini c Noteon 12-19-2024 Family [...] pressure. Impaired diastolic relaxation. List of Providers: Linux Engineer: Rick Hernandez PA-C Business Performance Advisor: Dr Phillip Orthopaedics: Dr Martinez LABS Cr/eGFR: [...] High (07/13/24 11:18:00) Future Appointments [facility]. Date: 01/01/2025 2:00 PM Scheduled Provider: [place], [address] Phone: [phone] Fax: [phone] The patient is presenting with shortness of [...] of l (more content not included)... Normal [facility] Comment on above: Result Comment: Elec tronically Signed By: Yocasta SMITH, HEATER OPERATOR HELPER- Myron VILLATORO\.br\Date and Time Signed: 12/19/24 16:05 EDT [id number] 12-19-2024 HbA1c (Bld) [Mass fraction] 6.1 % High <=5.9 [facility] Comment on above: Performed By: #### 7 [id number] #### [place] [facility] [address] [place] [address] XR Chest 2 Viewson XR Chest 2 [...] MD Transcribed by: KARSTEN Technologist: KORIN Normal [facility] eGFRon 12-19-2024 eGFR 98 mL/min/1.73 m2 Normal >=59 [facility] Comment on above: Performed By: #### 1 [id number] #### [place] [facility] [address] [place] [address] Ambulatory Visit Summaryon 0 11-27-2024 Ambulatory Visit Summary Ambulatory Visit Summary CARMEN BLEDSOE :1960 Visit Date:11/27/2024 Ambulatory Visit Instructions Your Diagnosis Type 2 diabetes mellitus with morbid obesity Bilateral leg edema Shortness of breath on exertion Alcohol problem drinking Cigarette smoker Morbid obesity, Morbid (severe) obesity due to excess calories BMI 50.0-59.9, adult Your Care Team Attending Physician - Yocasta MSN, HEATER OPERATOR HELPER-Myron VILLATORO Primary Care Physician - Yocasta MSN, HEATER OPERATOR HELPER-Myron VILLATORO This Is Your Medications List albuterol [...] EDT With: Yocasta SMITH, Myron ESPINO Where: [place] [address] [place] [address]- Tuesday 2:00 PM EDT With: Rick Hernandez PA-C Where: [facility] [place] You Need to Schedule the Following Appointments Follow Up with Yocasta SMITH, Myron ESPINO When: Only if needed Where: [address] [place] [phone] Medications What How Much When Why Instructions New albuterol (Albuterol (Eqv-Ventolin HFA) 90 mcg/ inh inhalation aerosol) 2 Puffs Inhalation Every 6 hours as needed for Shortness of breath or wheezing Refills: 3 Pickup at [facility] #72879 New fluticasone-salmetero l (Advair Diskus 250 mcg-50 mcg inhalation powder) 1 Puffs Inhalation 2 times a day Duration: 30 Days Pickup at [facility] #43415 Unchanged glipiZIDE (glipiZIDE 2.5 mg ER Tab) 1 Tablets By Mouth Every day Pickup at [facility][id number] Unchanged rosuvastatin (Crestor 40 mg Tab) 1 Tablets By Mouth Every day Mixed hyperlipidemia Pickup at [facility] #[id number] Unchanged aripiprazole (Abilify 5 mg Tab) 1 [...] Contact prescr (more content not included)... Normal [facility] Family Medicine Office/Clini c Noteon 11-27-2024 [...] medical options pending insurance approval for the [facility]. Preparation for potential bariatric intervention continues [...] again. Will continue following up with the blocker and sewer. Ordered: Current tobacco smoker 1034F Depression Screening [...] has an appointment with me on the 18th of next month we will reevaluate. Hopefully at that time she is already seeing the rotary shear worker helper and they have ordered the PFT if [...] Alcohol u (more content not included)... Normal [facility] Comment on above: Result Comment: Elec tronically Signed By: Yocasta MSN, HEATER OPERATOR HELPER- BUFFER OPERATOR, Myron Hamilton\.br\Date and Time Signed: 11/27/24 17:35 EDT Ambulatory [...] Care Team Attending Physician - Yocasta MSN, HEATER OPERATOR HELPER-Myron VILLATORO Primary Care Physician - Yocasta SMITH, HEATER OPERATOR HELPER-Myron VILLATORO This Is Your Medications List Misc [...] With: Rick Hernandez PA-C Where: [facility] [place] Tuesday 12:40 PM EDT With: Yocasta SMITH, DARLEEN-IRVING, Myron Hamilton Where: [facility] [address] [id number]- You Need to Schedule the Following Appointments Follow Up with Yocasta SMITH, DARLEEN-IRVING, Myron Hamilton When: In 3 months Comments: chronic care Where: [address] [place] [phone] Someone Will Contact You Regarding These Appointments [facility] External Ambulatory Referral, Surgery, Kevan Bariatric [...] pantoprazole (Pantopr (more content not included)... Normal [facility] CHEMISTRYOrdered By: SYSTEM SYSTEM on 09-12-2024 [...] 09-12-2024 Albumin [Mass/Vol] 4.3 g/dL Normal 3.3-5.0 [facility] Comment on above: Performed By: #### 2 594647 #### [facility] [address] [place] [address] Albumin/Globulin (S) [Mass conc ratio] 1.5 Normal 1.1-2.2 [facility] Comment on above: Performed By: #### 2 692247 #### [facility] [address] [place] [address] ALP [Catalytic activity/Vol] 54 Int._Unit/L Normal 21-98 [facility] Comment on above: Performed By: #### 2 403457 #### [facility] [address] [place] [address] ALT No additional P-5'-P [Catalytic activity/Vol] 18 Int._Unit/L Normal 6-46 [facility] Comment on above: Performed By: #### 2 246108 #### [facility] [address] [place] [address] Anion gap [Moles/Vol] 11 mmol/L Normal 6-16 [facility] Comment on above: Performed By: #### 2 430344 #### [facility] [address] [place] [address] AST [Catalytic activity/Vol] 18 Int._Unit/L Normal 5-43 [facility] Comment on above: Performed By: #### 2 225649 #### [facility] [address] [place] [address] Bilirubin [Mass/Vol] 0.4 mg/dL Normal 0.0-1.1 [facility] Comment on above: Performed By: #### 2 580502 #### [facility] [address] [place] [address] Calcium [Mass/Vol] 9.1 mg/dL Normal 8.9-11.1 [facility] Comment on above: Performed By: #### 2 530760 #### [facility] [address] [place] [address] Chloride [Moles/Vol] 98 mmol/L Low 101-111 [facility] Comment on above: Performed By: #### 2 037283 #### [facility] [address] [place] [address] CO2 [Moles/Vol] 27 mmol/L Normal 21-31 [facility] Comment on above: Performed By: #### 2 500487 #### [facility] [address] [place] [address] Creatinine [Mass/Vol] 0.7 mg/dL Normal 0.5-1.3 [facility] Comment on above: Performed By: #### 2 543425 #### [facility] [address] [place] [address] Globulin (S) [Mass/Vol] 2.8 g/dL Normal 1.4-4.0 [facility] Comment on above: Performed By: #### 2 699969 #### [facility] [address] [place] [address] Glucose [Mass/Vol] 95 mg/dL Normal 55-199 [facility] Comment on above: Performed By: #### 2 365165 #### [facility] [address] [place] [address] Potassium [Moles/Vol] 4.0 mmol/L Normal 3.5-5.3 [facility] Comment on above: Performed By: #### 2 411527 #### [facility] [address] [place] [address] Protein [Mass/Vol] 7.1 g/dL Normal 6.0-7.8 [facility] Comment on above: Performed By: #### 2 242597 #### [facility] [address] [place] [address] Sodium [Moles/Vol] 132 mmol/L Low 135-145 [facility] Comment on above: Performed By: #### 2 078115 #### [facility] [address] [place] [address] Urea nitrogen [Mass/Vol] 12 mg/dL Normal 5-21 [facility] Comment on above: Performed By: #### 2 005070 #### [facility] [address] [place] [address] Urea nitrogen/Creatinine [Mass ratio] 17 No Units Normal 10-20 [facility] Comment on above: Performed By: #### 2 075017 #### [facility] [address] [place] [address] Family Medicine Office/Clini c Noteon 09-12-2024 Family [...] pressure. Impaired diastolic relaxation. List of Providers: Linux Engineer: Rick Hernandez PA-C Business Performance Advisor: Dr Phillip Orthopaedics: Dr Martinez LABS Cr/eGFR: [...] (07/13/24 11:18:00) Future Appointments [facility] Date: 12/18/2024 11:00 AM Scheduled Provider: [place], [address] Phone: [phone] Fax: [phone] The patient is presenting with concerns surrounding [...] current e (more content not included)... Normal [facility] Comment on above: Result Comment: Elec tronically Signed By: Yocasta SMITH, Myron MUÑOZ CNP\.br\Date and Time Signed: 09/12/24 15:31 EDT eGFRon 09-12-2024 eGFR 98 mL/min/1.73 m2 Normal >=59 [facility] Comment on above: Performed By: #### 1 [id number] #### [facility] [address] [place] [address] Provider Letteron 09-04-2024 Provider Letter Provider Letter September 04, 2024 CARMEN BLEDSOE [address] [place] [address] : 1960 Dear Carmen, We have been trying to reach you with no success. Please call us at [phone] in regards to rescheduling your Colonoscopy. Thank you for your prompt attention to this matter. Sincerely, [facility] Normal [facility] Ambulatory Visit Summaryon 0 07-18-2024 Ambulatory Visit Summary Ambulatory Visit Summary LADI CARMEN :1960 Visit Date:07/18/2024 Ambulatory Visit Instructions Your Diagnosis Type 2 diabetes mellitus with morbid obesity Alcohol problem drinking Bilateral leg edema Morbid obesity, Morbid (severe) obesity due to excess calories BMI 50.0-59.9, adult Your Care Team Attending Physician - SRINIVAS Pereyra Tammy L. Primary Care Physician - SRINIVAS Pereyra Tammy L. This Is Your Medications List semaglutide (Ozempic [...] EST With: Yocasta SMITH, Myron ESPINO Where: [facility] [place] [address] [place] [address]- Tuesday 11:00 AM EST With: Where: [facility] Tuesday 11:00 AM EDT With: Rick Hernandez PA-C Where: [facility] [place] You Need to Schedule the Following Appointments Follow Up with Yocasta SMITH, DARLEEN-IRVING, Myron Hamilton When: Only if needed Comments: keep next month appt Where: [address] [place] [phone] Medications What How Much When Why Instructions New semaglutide (Ozempic 2 mg/ 3 mL (0.25 mg or 0.5 mg dose) subcutaneous solution) 0.5 Milligram Subcutaneous Every week Type 2 diabetes mellitus with morbid obesity Pickup at [facility] #[id number] Unchanged albuterol (albuterol 0.083% Inh Rochelle 3 [...] E11.9 Co (more content not included)... Normal [facility] Family Medicine Office/Clini c Noteon 07-18-2024 [...] qWeek, # 2 EA, Refills(s) 0, Pharmacy: [facility] #[id number], 168, cm, 07/18/24 11:59:00 EST, Height/Length Dosing, [...] Follow-up With When Contact Information Yocasta SMITH, HEATER OPERATOR HELPER-BUFFER OPERATORMyron Only if needed [address] [place] [phone] Additional Instructions: keep next month appt Patient [...] hip p (more content not included)... Normal [facility] Comment on above: Result Comment: Elec tronically Signed By: oYcasta SMITH, HEATER OPERATOR HELPER- Myron VILLATORO\.br\Date and Time Signed: 07/18/24 12:22 EST [id number] 07-17-2024 HbA1c (Bld) [Mass fraction] 5.7 % Normal <=5.9 [facility] Comment on above: Performed By: #### 7 [id number] #### [facility] [address] [place] [address] Ambulatory Visit Summaryon 0 07-13-2024 Ambulatory Visit [...] EST With: Yocasta SMITH, Myron ESPINO Where: [facility] [address] [place] [address]- Tuesday 1:00 PM EST With: Yocasta SMITH, Myron ESPINO Where: [facility] [address] [place] [address]- Tuesday 11:00 AM EST With: Where: [facility] Tuesday 11:00 AM EDT With: Rick Hernandez PA-C Where: [facility] [place] Medications What How Much When Why Instructions [...] you are (more content not included)... Normal [facility] Ambulatory Visit Summary Ambulatory Visit Summary [...] Team Primary Care Physician - Yocasta MSN, HEATER OPERATOR HELPER-BUFFER OPERATOR, Myron Hamilton This Is Your Medications List [...] EST With: Yocasta SMITH, Myron ESPINO Where: [facility] [address] [place] [address]- Tuesday 1:00 PM EST With: SRINIVAS Pereyra Tammy L. Where: [facility] [address] [place] [address]- Tuesday 11:00 AM EST With: Where: [facility] Tuesday 11:00 AM EDT With: Rick Hernandez PA-C Where: [facility] You Need to Complete the Following [id number], Blood, Routine collect, 11/02/23, Order for future [...] Lab Collec (more content not included)... Normal [facility] BNPon 07-13-2024 [facility] BNP Pass Normal [facility] Comment on above: Performed By: #### 1 [id number] #### [facility] [address] [place] [address] Natriuretic peptide B (Bld) [Mass/Vol] 39 pg/mL Normal 5-80 [facility] Comment on above: Performed By: #### 1 [id number] #### [facility] [address] [place] [address] CBC w/ Auto Diffon 5 Basophils/100 WBC (Bld) 0.7 % Normal 0.0-2.0 [facility] Comment on above: Performed By: #### 2 414488 #### [facility] [address] [place] [address] Basophils/Leukocytes Auto (Bld) [Pure # fraction] 0.0 E9/L Normal 0.0-0.2 [facility] Comment on above: Performed By: #### 2 005827 #### [facility] [address] [place] [address] Eosinophils (Bld) [#/Vol] 0.1 E9/L Normal 0.0-0.5 [facility] Comment on above: Performed By: #### 2 032000 #### [facility] [address] [place] [address] Eosinophils/100 WBC (Bld) 1.1 % Normal 0.0-8.0 [facility] Comment on above: Performed By: #### 2 567228 #### [facility] [address] [place] [address] Erythrocyte distribution width (RBC) [Ratio] 15.5 % High 10.9-14.2 [facility] Comment on above: Performed By: #### 2 875305 #### [facility] [address] [place] [address] Hematocrit (Bld) [Volume fraction] 41.1 % Normal 34.0-46.0 [facility] Comment on above: Performed By: #### 2 450913 #### [facility] [address] [place] [address] Hemoglobin (Bld) [Mass/Vol] 14.2 g/dL Normal 12.0-16.0 [facility] Comment on above: Performed By: #### 2 615478 #### [facility] [address] [place] [address] Lymphocytes (Bld) [#/Vol] 1.2 E9/L Normal 1.0-4.0 [facility] Comment on above: Performed By: #### 2 471321 #### [facility] [address] [place] [address] Lymphocytes/100 WBC (Bld) 18.3 % Normal 14.0-50.0 [facility] Comment on above: Performed By: #### 2 144423 #### [facility] [address] [place] [address] MCH (RBC) [Entitic mass] 32.3 pg Normal 27.0-34.0 [facility] Comment on above: Performed By: #### 2 031521 #### [facility] [address] [place] [address] MCHC (RBC) [Mass/Vol] 34.5 g/dL Normal 31.4-36.0 [facility] Comment on above: Performed By: #### 2 658010 #### [facility] [address] [place] [address] MCV (RBC) [Entitic vol] 93.7 fL Normal 80.0-100.0 [facility] Comment on above: Performed By: #### 2 603737 #### [facility] [address] [place] [address] Monocytes (Bld) [#/Vol] 0.4 E9/L Normal 0.2-1.0 [facility] Comment on above: Performed By: #### 2 582978 #### [facility] [address] [place] [address] Neutrophils (Bld) [#/Vol] 4.8 E9/L Normal 2.0-7.5 [facility] Comment on above: Performed By: #### 2 893253 #### [facility] [address] [place] [address] Neutrophils/100 WBC (Bld) 74.5 % Normal 36.0-75.0 [facility] Comment on above: Performed By: #### 2 663186 #### [facility] [address] [place] [address] Platelet mean volume (Bld) [Entitic vol] 8.3 fL Normal 6.4-10.8 [facility] Comment on above: Performed By: #### 2 108196 #### [facility] [address] [place] [address] Platelets (Bld) [#/Vol] 239.0 E9/L Normal 150.0-500.0 [facility] Comment on above: Performed By: #### 2 492201 #### [facility] [address] [place] [address] RBC (Bld) [#/Vol] 4.4 E12/L Normal 4.3-5.9 [facility] Comment on above: Performed By: #### 2 026205 #### [facility] [address] [place] [address] WBC corrected for nucl RBC Auto (Bld) [#/Vol] 6.5 E9/L Normal 4.0-11.0 [facility] Comment on above: Performed By: #### 2 333909 #### [facility] [address] [place] [address] CHEMISTRYOrdered By: SYSTEM SYSTEM on 07-13-2024 Albumin [...] 39 pg/mL Normal 5 - 80 pg/mL [facility] HemeManSS CMPon 07-13-2024 Albumin [Mass/Vol] 4.3 g/dL Normal 3.3-5.0 [facility] Comment on above: Performed By: #### 2 194106 #### [facility] [address] [place] [address] Albumin/Globulin (S) [Mass conc ratio] 1.3 Normal 1.1-2.2 [facility] Comment on above: Performed By: #### 2 674756 #### [facility] [address] [place] [address] ALP [Catalytic activity/Vol] 66 Int._Unit/L Normal 21-98 [facility] Comment on above: Performed By: #### 2 993278 #### [facility] [address] [place] [address] ALT No additional P-5'-P [Catalytic activity/Vol] 23 Int._Unit/L Normal 6-46 [facility] Comment on above: Performed By: #### 2 844420 #### [facility] [address] [place] [address] Anion gap [Moles/Vol] 12 mmol/L Normal 6-16 [facility] Comment on above: Performed By: #### 2 688612 #### [facility] [address] [place] [address] AST [Catalytic activity/Vol] 18 Int._Unit/L Normal 5-43 [facility] Comment on above: Performed By: #### 2 889481 #### [facility] [address] [place] [address] Bilirubin [Mass/Vol] 0.5 mg/dL Normal 0.0-1.1 [facility] Comment on above: Performed By: #### 2 438643 #### [facility] [address] [place] [address] Calcium [Mass/Vol] 9.8 mg/dL Normal 8.9-11.1 [facility] Comment on above: Performed By: #### 2 798350 #### [facility] [address] [place] [address] Chloride [Moles/Vol] 100 mmol/L Low 101-111 [facility] Comment on above: Performed By: #### 2 439608 #### [facility] [address] [place] [address] CO2 [Moles/Vol] 27 mmol/L Normal 21-31 [facility] Comment on above: Performed By: #### 2 107661 #### [facility] [address] [place] [address] Creatinine [Mass/Vol] 0.7 mg/dL Normal 0.5-1.3 [facility] Comment on above: Performed By: #### 2 567794 #### [facility] [address] [place] [address] Globulin (S) [Mass/Vol] 3.2 g/dL Normal 1.4-4.0 [facility] Comment on above: Performed By: #### 2 465809 #### [facility] [address] [place] [address] Glucose [Mass/Vol] 88 mg/dL Normal 55-199 [facility] Comment on above: Performed By: #### 2 685461 #### [facility] [address] [place] [address] Potassium [Moles/Vol] 4.3 mmol/L Normal 3.5-5.3 [facility] Comment on above: Performed By: #### 2 294879 #### [facility] [address] [place] [address] Protein [Mass/Vol] 7.5 g/dL Normal 6.0-7.8 [facility] Comment on above: Performed By: #### 2 800034 #### [facility] [address] [place] [address] Sodium [Moles/Vol] 135 mmol/L Normal 135-145 [facility] Comment on above: Performed By: #### 2 587448 #### [facility] [address] [place] [address] Urea nitrogen [Mass/Vol] 14 mg/dL Normal 5-21 [facility] Comment on above: Performed By: #### 2 364958 #### [facility] [address] [place] [address] Urea nitrogen/Creatinine [Mass ratio] 20 No Units Normal 10-20 [facility] Comment on above: Performed By: #### 2 679874 #### [facility] [facility] [address] [place] [address] HEMATOLOGYOrdered By: SYSTEM SYSTEM on 07-13-2024 Basophils/100 [...] 07-13-2024 Cholesterol [Mass/Vol] 163 mg/dL Normal 120-200 [facility] Comment on above: Performed By: #### 2 [id number] #### [facility] [address] [place] [address] Cholesterol in HDL [Mass/Vol] 47 mg/dL Invalid Interpretation Code [facility] Comment on above: Result Comment: '>= 60 LOW RISK' '<= 40 HIGH RISK' Performed By: #### 2 [id number] #### [facility] [address] [place] [address] Cholesterol in LDL [Mass/Vol] 97 mg/dL Normal <=129 [facility] Comment on above: Performed By: #### 2 [id number] #### [facility] [address] [place] [address] Cholesterol in VLDL [Mass/Vol] 42 mg/dL High 7-40 [facility] Comment on above: Performed By: #### 2 [id number] #### [facility] [address] [place] [address] Triglyceride [Mass/Vol] 208 mg/dL High <=149 [facility] Comment on above: Performed By: #### 2 [id number] #### [facility] [address] [place] [address] Vit B12on 07-13-2024 Cobalamin (Vitamin B12) [Mass/Vol] 191 pg/mL Normal 50-1500 [facility] Comment on above: Performed By: #### 2 [id number] #### [facility] [address] [place] [address] eGFRon 07-13-2024 eGFR 98 mL/min/1.73 m2 Normal >=59 [facility] Comment on above: Performed By: #### 1 [id number] #### [facility] [address] [place] [address] Family Medicine Office/Clini c Noteon 07-12-2024 Family [...] the cramping. Did encouraged to follow-up with kilnman if no improvement. 2. Alcohol problem drinking [...] days Additional Instructions: fasting labs Yocasta SMITH, HEATER OPERATOR HELPER-BUFFER OPERATORMyron In [address] [place] [phone] Additional Instructions: chronic care Patient Education Alcohol [...] acquired Smoker (more content not included)... Normal [facility] Comment on above: Result Comment: Elec tronically Signed By: Yocasta SMITH, HEATER OPERATOR HELPER- BUFFER OPERATORMyron\.br\Date and Time Signed: 07/12/24 20:01 EST Ambulatory Visit Summaryon 0 07-11-2024 Ambulatory Visit Summary Ambulatory Visit Summary CARMEN BLEDSOE :1960 Visit Date:07/11/2024 Ambulatory Visit Instructions Your Diagnosis Diarrhea Alcohol problem drinking Morbid (severe) obesity due to excess calories BMI 50.0-59.9, adult Immunization due Your Care Team Attending Physician - Yocasta MSN, HEATER OPERATOR HELPER-Myron VILLATORO Primary Care Physician - Yocasta SMITH, HEATER OPERATOR HELPER-Myron VILLATORO This Is Your Medications List dicyclomine (Bentyl [...] Appointments Tuesday 11:00 AM EST With: Where: [address] [address]- Tuesday 12:00 PM EST With: Yocasta SMITH, DARLEEN-Myron VILLATORO Where: [facility] [address] [place] [address]- Tuesday 1:00 PM EST With: Yocasta SMITH, DARLEEN-Myron VILLATORO Where: [facility] [address] [place] [address]- Tuesday 11:00 AM EST With: Where: [facility] Tuesday 11:00 AM EDT With: Rick Hernandez PA-C Where: [facility] You Need to Schedule the Following Appointments Follow Up with nurse visit When: Within 2 to 3 days Comments: fasting labs Where: Follow Up with Yocasta SMITH, DARLEEN-Myron VILLATORO When: In 1 week Comments: chronic care Where: [address] [place] [phone] You Need to Complete the Following B-Type [...] day as needed for Pain Pickup at [facility] #[id number] Unchanged albuterol (albuterol 0.083% Inh Rochelle 3 mL) 3 Shanta (more content not included)... Normal [facility] Ambulatory Visit Summaryon 1 08-06-2023 Ambulatory Visit Summary Ambulatory Visit Summary CARMEN BLEDSOE :1960 Visit Date:06/05/2024 Ambulatory Visit Instructions Your Diagnosis Benign hypertension Mixed hyperlipidemia Peripheral edema Your Care Team Attending Physician - David LEONARD, Rick Gipson Primary Care Physician - Yocasta MSN, HEATER OPERATOR HELPER-BUFFER OPERATOR, Myron Hamilton Referring Physician - NONE, XXXX [...] Tuesday 1:00 PM EST With: Yocasta MSN, HEATER OPERATOR HELPER-BUFFER OPERATOR, Myron Hamilton Where: [place] [address] [place] [address]- Tuesday 11:00 AM EST With: Where: [facility] Tuesday 11:00 AM EDT With: David LEONARD, Rick Gipson Where: [facility] Medications What How Much When Why Instructions [...] problem jeramie (more content not included)... Normal [facility] Heart and Vascular Office/Cl inic Noteon [...] Daily, # 90 tab(s), Refills(s) 1, Pharmacy: [facility] #[id number], 168, cm, 06/05/24 13:03:00 EST, Height/Length Dosing, 145.9, kg, 06/05/24 13:03:00 EST, Weight Dosing 2. Mixed hyperlipidemia (E78.2: Mixed hyperlipidemia) Patient is currently taking rosuvastatin 40 mg daily for HLD. Continue with current medication Ordered: rosuvastatin, 40 mg = 1 tab(s), Oral, Daily, # 90 tab(s), Refills(s) 3, Pharmacy: [facility] #[id number], 168, cm, 06/05/24 13:03:00 EST, Height/Length Dosing, [...] Daily, # 90 tab(s), Refills(s) 1, Pharmacy: [facility] #[id number], 168, cm, 06/05/24 13:03:00 EST, Height/Length Dosing, 145.9, kg, 06/05/24 13:03:00 EST, Weight Dosing potassium chloride, 20 mEq = 1 tab(s), Oral, Daily, Take with Lasix, # 90 tab(s), Refills(s) 1, Pharmacy: [facility] #[id number], 168, cm, 06/05/24 13:03:00 EST, Height/Length Dosing, 145.9, kg, 06/05/24 13:03:00 EST, Weight Dosing Follow-up with me in 6 months or sooner if needed Portions of this record may have been created with voice recognition artificial intelligence software, specifically [employer], [employer] and or [employer] Daily Deals. Substitutions may have occurred due to the inherent limitations of voice recognition and artificial intelligence software. Follow-up No qualifying data available Problem List/Past Medical History Ongoing Alcohol problem drinking Benign hypertension Bilateral hip pain Bilateral leg edema BMI 45.0-49.9, adult (more content not included)... Normal [facility] Comment on above: Result Comment: Elec [...] smear: 2019 DEXA: NA Labs: 08/10/2023 at [facility] Diabetes/ prediabetes: Eye exam: few years ago, had cataract surgery Foot exam: 08/10/2023 done by Omari VILLATORO A1c: Hgb A1C %: 6.3 % High (08/20/22 15:02:00) Smokers/ former smokers: Low dose lung CT: _ List of Providers: Linux Engineer: Dr Ramirez Business Performance Advisor: Dr Phillip Orthopaedics: Dr Juan BENAVIDES Cr/eGFR: [...] 4.6 mcg/mL (08/20/22 15:02:00) . Future Appointments [facility] Appt. Date: 02/22/2024 1:20 PM Scheduled Provider: Myron Macias [address] [place], [address] Phone: [phone] Fax: [phone] [address] [place], [place], [phone] Phone: -- Fax: -- [facility] Appt. Date: 06/05/2024 1:00 PM Scheduled Provider: Adam SAMPSON, Alirio Hooper [address] [place], [address] Fax: [phone] [address] [place] [address], [address] Phone: -- Fax: -- [address] [place] [address], [address] Phone: -- Fax: -- [facility] Appt. Date: 08/31/2024 11:00 AM Scheduled Provider: LADY 1 [facility] [address] [place], [phone] Fax: -- She reports feeling well with [...] last HbA1c was 5.4% when checked at [facility]. She has discontinued her trazodone for sleep but continues to use a CPAP machine. She has already had a colonoscopy, and there is another scheduled in 3 months. Her last mammogram was (more content not included)... Normal [facility] Comment on above: Result Comment: Elec tronically Signed By: Yocasta MSN, Myron MUÑOZ CNP\.br\Date and Time Signed: 02/23/24 15:15 EDT\.br\Electronically Co-Signed [...] Adam SAMPSON, Alirio Hooper Where: [facility] Tuesday 1:00 PM EST With: Yocasta SMITH, SRINIVAS, Myron Hamilton Where: [facility] [address] [place] [address]- Tuesday 11:00 AM EST With: Where: [facility] You Need to Schedule the Following Appointments Follow Up with Yocasta SMITH, SRINIVAS, Myron Hamilton When: In 6 months Comments: chronic care Where: [address] [place] [phone] Medications What How Much When Why Instructions Changed aripiprazole (Abilify 5 mg Tab) 1 Tablets By Mouth Every day Changed dulaglutide (Trulicity Pen 3 mg/ 0.5 mL subcutaneous solution) 3 Milligram Subcutaneous Every week Type 2 diabetes mellitus with morbid obesity Pickup at [facility] #[id number] Unchanged albuterol (albuterol 0.083% Inh Rochelle 3 [...] Misc Prescription (more content not included)... Normal [facility] Heart and Vascular Office/Cl inic Noteon [...] after patient or guardian consented to allow [employer] to record this visit. BUD psych specialist and provider reviewed before signing. BUD: Tyra Manatad/pasted by: Josse Nava Portions of this record may have been created with voice recognition artificial intelligence software, specifically Playrific, [employer] and or [employer] Daily [employer]. Substitutions may have occurred due to the [...] furosemide 4 (more content not included)... Normal [facility] Comment on above: Result Comment: Elec tronically Signed By: Adam SAMPSON, Alirio Hooper\.br\Date and Time Signed: 01/28/24 09:35 EDT\.br\Electronically Co-Signed By: Josse Nava\.br\Date and Time Co-Signed: 12/06/23 16:45 EDT [place] 12-26-2023 Consent [id number]# 1.00TIFF [facility] Discharge Instructionson Discharge Instructions [id number]# 1.00TIFF [facility] Main OR Intraoperative Recor don 12-26-2023 Main OR Intraoperative Record IntraOp Document Type FT Summary Primary Physician: Walker Phillip MD Finalized Date/Time: 12/26/23 11:06:58 Pt. Name: CARMEN BLEDSOE French/Sex: 1960 Female Med Rec #: [id number] Physician: Marjan SAMPSON, Walker Pritchett Financial #: [id number] Pt. Type: O Room/Bed: / Admit/Disch: 12/23/23 [...] Lainez RN, [place] Role Performed Anesthesiologist [employer]vac Residential Service Technician - Primary Staff - Other Repairing Calibrator Time In 12/23/23 12:15:00 12/23/23 12:15:00 12/23/23 [...] Class 2 - Clean-Contaminated Last Modified By: eFlicia Lainez RN 12/23/23 12:55:34 General Case Data [...] and tissue Entry 1 Skin Integrity Intact, [place], Warm, and Skin Abnormality No Dry Outcomes Met? Yes Last Modified By: Felicia Lainez RN 12/23/23 12:25:30 Post-Care Text: The patient is free from signs and symptoms of injury caused by extraneous objects Patient Positioning FT Pre-Care Text: Identifies physical alterations that require additional precautions for procedure-specific posit (more content not included)... [facility] Consent for Treatmenton 12-03 Consent for Treatment [id number]#1 .00TIFF [facility] Discharge Instructionson Discharge Instructions CARMEN BLEDSOE :1960 [...] Appointments Tuesday 10:30 AM EDT With: Where: [facility] Tuesday 10:00 AM EDT With: Walker Phillip MD Where: [facility] Normal [address] [place] [address]- \.br\ Tuesday 1:00 PM EST \.br\ With: Adam SAMPSON, Alirio Hooper\.br\ Where: [facility]\.br\ New Follow Up Appointments after Discharge\.br\ Follow Up with Marjan SAMPSON, Walker Pritchett, GAS, MED When: \.br\ Comments:\.br\ Call Office in 2 weeks for results or follow-up Appt. \.br\ Where:\.br\ [address], [address] [facility] 3\.br\ [place] [address].br\ [phone]\.br\ Medications\.br\ What How Much When Why Instructions [...] Chest discomfort: Most heart attacks involve discomf [facility] Comment on above: Result Comment: Elec [...] MD. Current history and physical Reviewed. Colonoscopy ([id number]) on 03/17/2020 at 59 Years. L foot bunion/reconstruction . Eye/lens implant bilat. Knee replacement ([id number]).. Past Medical History Resolved Tubular adenoma of colon ([id number]): Resolved. COPD exacerbation (173720940): Resolved.. Family History Liver cancer Father () Hypertension Sister Brother Mother () Stomach cancer Mother () . Procedure History Colonoscopy ([id number]) on 03/17/2020 at 59 Years. L foot bunion/reconstruction . Eye/lens implant bilat. Knee replacement ([id number]).. Colorectal neoplasm risk assessment High risk Previous [...] Daily, # 90 tab(s), Refills(s) 3, Pharmacy: [facility] #[id number], 167, cm, 01/11/23 11:15:00 EDT, Height/Length Dosing, 138, kg, 01/11/23 11:15:00 EDT, Weight Dosing Alcohol wipes: Alcohol wipes, See Instructions, 100 EA, 3, Use to check BS daily dx E11.9, [facility] #[id number], Supply, 163, cm, 12/30/21 11:09:00 EDT, Height/Length Dosing, 154, kg, 12/30/21 11:09:00 EDT, Weight Dosing Crestor 40 mg Tab: 40 mg = 1 tab(s), Oral, Daily, # 90 tab(s), Refills(s) 3, Pharmacy: [facility] #[id number], 167, cm, 05/09/23 8:15:00 EST, Height/Length Dosing, 145.6, kg, 05/09/23 8:15:00 EST, Weight Dosing FLUoxetine 20 mg Cap: 40 mg = 2 cap(s), Oral, Daily, # 180 cap(s), Refills(s) 1, Pharmacy: [facility] #[id number], 167, cm, 08/10/23 14:24:00 EST, Height/Length Dosing, 151.4, kg, 08/10/23 14:24:00 EST, Weight Dosing Glucometer: Glucometer, See Instructions, 1 EA, 0, Glucometer to test BS TID and PRN dx E11.9, [facility], Supply, 170, cm, 05/27/21 8:31:00 EST, Height/Length Dosing, 157.8, kg, 05/27/21 8:31:00 EST, Weight Dosing Jardiance 10 mg oral tablet: 10 mg, Oral, Daily, # 90 tab(s), Refills(s) 2, Pharmacy: [facility] #[id number], 167, cm, 08/10/23 14:24:00 EST, Height/Length Dosing, 151.4, kg, 08/10/23 14:24:00 EST, Weight Dosing Lancets: Lancets, See Instructions, 100 EA, 3, Use to check BS daily dx E11.9, [facility] #[id number], Supply, 163, cm, 12/30/21 11:09:00 EDT, Height/Length Dosing, 154, kg, 12/30/21 11:09:00 EDT, Weight Dosing Nebulizer Machine: Nebulizer Machine, See Instructions, 1 EA, 0, Nebulizer Machine, [facility] #[id number], Supply, 168, cm, 10/11/23 14:32:00 EDT, Height/Length Dosing, 160.2, kg, 10/11/23 14:32:00 EDT, Weight Dosing Nebulizer Tubing and Mouthpiece Kit: Nebulizer Tubing and Mouthpiece Kit, See Instructions, 1 kit(s), 0, Nebulizer Tubing and Mouthpiece Kit, [facility] #86407, Supply, 168, cm, 10/11/23 14:32:00 EDT, Height/Length Dosing, 160.2, kg, 10/11/23 14:32:00 EDT, Weight Dosing Pantoprazole [address] Tab: 40 mg = 1 tab(s), Oral, Daily, # 90 tab(s), Refills(s) 3, Pharmacy: [facility] #[id number], 167, cm, 01/11/23 11:15:00 EDT, Height/Length Dosing, 138, kg, 01/11/23 11:15:00 EDT, Weight Dosing Singulair 10 mg Tab: 10 mg = 1 tab(s), Oral, qPM, # 30 tab(s), Refills(s) 2, Pharmacy: [facility], 170, cm, 10/16/19 9:09:00 EDT, Height/Length Measured, 154.3, kg, 10/16/19 9:09:00 EDT, Weight Measured Spiriva Respimat 1.25 mcg/inh inhalation aerosol: 2 puff(s), Inhalation, Daily, 3 EA, Refill(s) 3, [facility], 163, cm, 12/30/21 11:09:00 EDT, Height/Length Dosing, 154, kg, 12/30/21 11:09:00 EDT, Weight Dosing Test Strips: Test Strips, See Instructions, 100 EA, 3, Use to test BS daily, [facility] #[id number], Supply, 167.5, cm, 10/18/22 13:30:00 EDT, Height/Length Dosing, 147, kg, 10/18/22 13:30:00 EDT, Weight Dosing Trulicity Pen 1.5 mg/0.5 mL subcutaneous solution: 1.5 mg, SubCutaneous, qWeek, # 4 EA, Refills(s) 0, Pharmacy: [facility] #[id number], 168, cm, 12/06/23 14:55:00 EDT, Height/Length Dosing, 139, kg, 12/06/23 14:55:00 EDT, Weight Dosing Ventolin HFA 90 mcg/inh Aerosol-Adpt: 2 (more content not included)... Normal [facility] Comment on above: Result Comment: Elec tronically Signed By: Walker Phillip MD\.br\Date and Time Signed: 12/23/23 12:58 EDT Main OR PACU I Recordon 12-03 Main OR PACU I Record PACU Phase I Document Type FT Summary Primary Physician: Walker Phillip MD Finalized Date/Time: 12/23/23 13:44:10 Pt. Name: CARMEN BLEDSOE/Sex: 1960 Female Med Rec #: [id number] Physician: Walker Phillip MD Financial #: [id number] Pt. Type: O Room/Bed: / Admit/Disch: 12/23/23 [...] By: Catarino Valentine RN 12/23/23 13:[address] [facility] Main OR Preoperative Recordo n 12-23-2023 Main OR Preoperative Record Holding Area Document Type FT Summary Primary Physician: Walker Phillip MD Finalized Date/Time: 12/23/23 10:57:22 Pt. Name: CARMEN BLEDSOE/Sex: 1960 Female Med Rec #: [id number] Physician: Walker Phillip MD Financial #: [id number] Pt. Type: O Room/Bed: / Admit/Disch: 12/23/23 [...] By: Jannet Adorno RN 12/23/23 10:[address] [facility] Monitor Recordon 12-23-2023 Monitor Record [id number]# 1.00TIFF Normal [facility] Nursing Narrative Noteon Nursing Narrative Note Unable to obtain accurate testing after attempt x2 RN d/t pt body habitus. Normal [facility] Patient Education - Texton 0 12-23-2023 [...] or gets worse throughout the day. Normal [facility] Progress Note-Physicianon Progress Note-Physician Patient: CARMEN BLEDSOE Age: 63 years Sex: Female : 1960 Associated Diagnoses: None Author: Demar SAMPSON, Zadi Hooper Postoperative Information Postoperative disposition: Postoperative disposition: To PACU. Optimetrix number: Optimetrix number [id number]. Anesthetic utilized: General. Health Status Allergies: Allergic [...] meets criteria ( To home ). Normal [facility] Comment on above: Result Comment: Elec [...] 90 tab(s), Refills(s) 3, Pharmacy: [facility] #[id number], 167, cm, 01/11/23 11:15:00 EDT, Height/Length Dosing, 138, kg, 01/11/23 11:15:00 EDT, Weight Dosing Alcohol wipes: Alcohol wipes, See Instructions, 100 EA, 3, Use to check BS daily dx E11.9, [facility] #56760, Supply, 163, cm, 12/30/21 11:09:00 EDT, Height/Length Dosing, 154, kg, 12/30/21 11:09:00 EDT, Weight Dosing Crestor 40 mg Tab: 40 mg = 1 tab(s), Oral, Daily, # 90 tab(s), Refills(s) 3, Pharmacy: [facility] #[id number], 167, cm, 05/09/23 8:15:00 EST, Height/Length Dosing, 145.6, kg, 05/09/23 8:15:00 EST, Weight Dosing FLUoxetine 20 mg Cap: 40 mg = 2 cap(s), Oral, Daily, # 180 cap(s), Refills(s) 1, Pharmacy: [facility] #02325, 167, cm, 08/10/23 14:24:00 EST, Height/Length Dosing, 151.4, kg, 08/10/23 14:24:00 EST, Weight Dosing Glucometer: Glucometer, See Instructions, 1 EA, 0, Glucometer to test BS TID and PRN dx E11.9, [facility], 170, cm, 05/27/21 8:31:00 EST, Height/Length Dosing, 157.8, kg, 05/27/21 8:31:00 EST, Weight Dosing Jardiance 10 mg oral tablet: 10 mg, Oral, Daily, # 90 tab(s), Refills(s) 2, Pharmacy: [facility] #[id number], 167, cm, 08/10/23 14:24:00 EST, Height/Length Dosing, 151.4, kg, 08/10/23 14:24:00 EST, Weight Dosing Lancets: Lancets, See Instructions, 100 EA, 3, Use to check BS daily dx E11.9, [facility] #64710, Supply, 163, cm, 12/30/21 11:09:00 EDT, Height/Length Dosing, 154, kg, 12/30/21 11:09:00 EDT, Weight Dosing Nebulizer Machine: Nebulizer Machine, See Instructions, 1 EA, 0, Nebulizer Machine, [facility] #25403, Supply, 168, cm, 10/11/23 14:32:00 EDT, Height/Length Dosing, 160.2, kg, 10/11/23 14:32:00 EDT, Weight Dosing Nebulizer Tubing and Mouthpiece Kit: Nebulizer Tubing and Mouthpiece Kit, See Instructions, 1 kit(s), 0, Nebulizer Tubing and Mouthpiece Kit, [facility] #24150, Supply, 168, cm, 10/11/23 14:32:00 EDT, Height/Length Dosing, 160.2, kg, 10/11/23 14:32:00 EDT, Weight Dosing Pantoprazole [address] Tab: 40 mg = 1 tab(s), Oral, Daily, # 90 tab(s), Refills(s) 3, Pharmacy: [facility] #[id number], 167, cm, 01/11/23 11:15:00 EDT, Height/Length Dosing, 138, kg, 01/11/23 11:15:00 EDT, Weight Dosing Singulair 10 mg Tab: 10 mg = 1 tab(s), Oral, qPM, # 30 tab(s), Refills(s) 2, Pharmacy: [facility], 170, cm, 10/16/19 9:09:00 EDT, Height/Length Measured, 154.3, kg, 10/16/19 9:09:00 EDT, Weight Measured Spiriva Respimat 1.25 mcg/inh inhalation aerosol: 2 puff(s), Inhalation, Daily, 3 EA, Refill(s) 3, [facility], 163, cm, 12/30/21 11:09:00 EDT, Height/Length Dosing, 154, kg, 12/30/21 11:09:00 EDT, Weight Dosing Test Strips: Test Strips, See Instructions, 100 EA, 3, Use to test BS daily, [facility] #57068, Supply, 167.5, cm, 10/18/22 13:30:00 EDT, Height/Length Dosing, 147, kg, 10/18/22 13:30:00 EDT, Weight Dosing Trulicity Pen 1.5 mg/0.5 mL subcutaneous solution: 1.5 mg, SubCutaneous, qWeek, # 4 EA, Refills(s) 0, Pharmacy: [facility] #32503, 168, cm, 12/06/23 14:55:00 EDT, Height/Length Dosing, 139, kg, 12/06/23 14:55:00 EDT, Weight Dosing Ventolin HFA 90 mcg/inh Aerosol-Adpt: 2 puff(s), Inhalation, q6hr for wheezing, 1 EA, Refill(s) 1, [facility] #16309, 167, cm, 09/29/22 11:37:00 EDT, Height/Length Dosing, 149.2, kg, 09/29/22 11:37:00 EDT, Weight Dosing Vitamin D3 5000 intl units oral capsule: 5,000 International_Unit = 1 cap(s), Oral, Daily, with food, # 100 cap(s), Refills(s) 1, Pharmacy: [facility] #68197, 170, cm, 10/13/22 9:06:00 EDT, Height/Length Dosing, 149.2, kg, 09/29/22 11:37:00 EDT, Weight Dosing albuterol 0.083% Inh Rochelle 3 mL: 2.5 mg, 3 mL, Inhalation, q6hr Shortness of breath or wheezing, 100 EA, Refill(s) 1, [facility] #65448, 168, cm, 10/11/23 14:32: (more content not included)... Normal [facility] Comment on above: Result Comment: Elec tronically Signed By: Demar SAMPSON, Zaid Hooper\.br\Date and Time Signed: 12/23/23 11:24 EDT RAD - MRI Reporton 4 RAD - MRI Report [id number]#1. 00TIFF Normal [facility] MRI LUMBAR SPINE WO CONTRAST on [...] Dwayne Ruffin MD 12/22/23 Final result Normal [facility] Insurance Correspondenceon 0 12-13-2023 Insurance Correspondence [id number]# 1.00TIFF Normal [facility] Physician Orderon 12-07-2023 Physician Order [id number]# 1.00TIFF Normal [facility] Ambulatory Visit Summaryon 0 12-06-2023 Ambulatory Visit Summary CARMEN BLEDSOE :1960 Visit Date:12/06/2023 Ambulatory Visit Instructions Your Care Team Attending Physician - dAam SAMPSON, Alirio Briggs. Primary Care Physician - Yocasta MSN, HEATER OPERATOR HELPER-BUFFER OPERATOR, Myron Hamilton Referring Physician - NONE, XXXX [...] Appointments Tuesday 10:30 AM EDT With: Where: [facility] Tuesday 12:00 PM EDT With: Where: [facility] Tuesday 10:45 AM EDT With: Marjan SAMPSON, Walker Pritchett Where: [facility] Normal [address] [place] [address]- \.br\ Tuesday 1:00 PM EST \.br\ With: Adam SAMPSON, Alirio D.\.br\ Where: [facility]\.br\ Medications\.br\ What How Much When Why Instructions\.br [...] for choosing us for your care.\.br\ \.br\ [facility] Consent for Treatmenton Consent for Treatment [id number] [facility] Ambulatory Visit Summaryon 0 11-25-2023 Ambulatory Visit Summary CARMEN BLEDSOE :1960 Visit Date:11/25/2023 Ambulatory Visit Instructions Your Diagnosis Benign hypertension Hepatomegaly Type 2 diabetes mellitus with morbid obesity Alcohol problem drinking Class 3 severe obesity due to excess calories with serious comorbidity in adult, Morbid (severe) obesity due to excess calories BMI 50.0-59.9, adult Your Care Team Attending Physician - Yocasta SMITH, HEATER OPERATOR HELPER-Myron VILLATORO Primary Care Physician - Yocasta SMITH, HEATER OPERATOR HELPER-BUFFER OPERATORMyron. This Is Your Medications List tramadol (traMADOL [...] Adam SAMPSON, Alirio Hooper Where: [facility] Tuesday 10:30 AM EDT With: Where: [facility] Tuesday 12:00 PM EDT With: Where: [facility] Tuesday 10:45 AM EDT With: Marjan SAMPSON, Walker Pritchett Where: [facility] Normal [address] [place] [address]- \.br\ You Need to Schedule the Following Appointments\.br \ Follow Up with Yocasta MSN, HEATER OPERATOR HELPER-BUFFER OPERATOR, Myron Hamilton When: In 3 months\.br\ Comments:\.br\ chronic care\.br\ Where:\.br\ [address]\.br\ [place] [address]\.br\ Medications\.br\ What How Much When Why Instructions\.br \ Changed tramadol (traMADOL 50 mg Tab) 1 Tablets By Mouth Every 6 hours as needed for for pain Pickup at [id number]\.br\ Unchanged albuterol (albuterol 0.083% Inh Rochelle 3 [...] if questions or concerns \.br\ Pharmacy Information\.br\ [id number]: [address], [place] [id number] [phone]\.br\ \.br\ What How Much When Comments\.br\ Stop [...] ? \.br\ Are exposed to hepa Magana [facility] Family Medicine Office/Clini c Noteon 11-25-2023 [...] smear: _ DEXA: _ Labs: 08/10/2023 at [facility] Diabetes/ prediabetes: Eye exam: _ done by _ Foot exam: 08/10/2023 done by Omari BUFFER OPERATOR A1c: Hgb A1C %: 6.3 % High (08/20/22 15:02:00) Smokers/ former smokers: Low dose lung CT: _ List of Providers: Linux Engineer: DR Ramirez Business Performance Advisor: Dr Phillip Orthopaedics: Dr Juan BENAVIDES Cr/eGFR: eGFR: >60 (08/05/2023) Creatinine: 0.6 mg/dL (08/10/2023) A1c: Hgb A1C %: 5.4% (08/10/2023) TSH: TSH: 4.64 mcIU/mL (08/20/22 15:02:00) Vit D: No qualifying data available. LDL: LDL Direct: 67 mg/dL (08/10/2023) Lipids: Chol: 206 mg/dL (08/10/2023) HDL: 95 mg/dL (08/10/2023) LDL Direct: 67 mg/dL (08/10/2023) Microalbumin: U Microalb: >12 mcg/mL (08/10/2023) Future Appointments [facility] [place] Appt. Date: 12/06/2023 3:15 PM Scheduled Provider: Adam SAMPSON, Alirio Hooper [address] [place] [address], [address] Fax: [phone] [address] [place] [address], [address] Phone: -- Fax: -- [address] [place] [address], [address] Phone: -- Fax: -- [facility] Appt. Date: 12/23/2023 10:30 AM Scheduled Provider: LADY 3 FT Phone: -- Fax: -- [facility] Appt. Date: 12/23/2023 12:00 PM Scheduled Provider: ENDO 1 FT Phone: -- Fax: -- [facility] Appt. Date: 01/13/2024 10:45 AM Scheduled Provider: Marjan SAMPSON, Walker Reyes, [address], [address] Phone: [phone] Fax: [phone] The patient has transitioned to using a [...] relapse experience (more content not included)... Normal [facility] Comment on above: Result Comment: Elec tronically Signed By: Yocasta SMITH, HEATER OPERATOR HELPER- [place], Myron Hamilton\.br\Date and Time Signed: 11/25/23 20:36 EDT\.br\Electronically Co-Signed By: Jessenia Seven N\.br\Date and Time Co-Signed: 11/25/23 16:37 EDT Patient [...] to follow these instructions. Medicines ? Take duak-nvb-djrldms and prescription medicines only as told by your health care provider. ? Do not start taking any new medicine unless your health care provider has approved. These include dojg-awo-qrfmbkz medicines, vitamins, herbs, and supplements. Some of [...] provider. Document Revised: 05/19/2022 Document Reviewed: 05/19/2022 [employer] Patient Education ? 2022 [employer] Endocrinology Type 2 Diabetes Mellitus, Self-Care, [...] glucose every (more content not included)... Normal [facility] Basic Metabolic Profon 11-16 Anion gap [Moles/Vol] 10 mmol/L Normal - [facility] Comment on above: Performed By: #### B MP, BNP ####[facility] Hck5531 [facility], [place] [phone] Director: Yury Caba MD BUN/CRE Ratio 20 Normal 9- [facility] Comment on above: Performed By: #### B MP, BNP ####[facility] Aow8648 [facility] [place] [phone] Director: Yury Caba MD Calcium [Mass/Vol] 9.2 mg/dL Normal 8.6-10.4 [facility] Comment on above: Performed By: #### B MP, BNP ####[facility] Ctb5312 [facility], [place] [phone] Director: Yury Caba MD Chloride [Moles/Vol] 99 mmol/L Normal 98-107 [facility] Comment on above: Performed By: #### B MP, BNP ####[facility] Sol4255 [facility], [place] [phone] Director: Yury Caba MD CO2 [Moles/Vol] 24 mmol/L Normal 20-31 [facility] Comment on above: Performed By: #### B MP, BNP ####[facility] Wjq3513 [facility] [place], [place] [phone] Director: Yury Caba MD Creatinine [Mass/Vol] 0.7 mg/dL Normal 0.5-0.9 [facility] Comment on above: Performed By: #### B MARIANA, BNP ####[facility] Ser0368 [place] [address] Lab Director: Yury Caba MD GFR/1.73 sq M.predicted among non-blacks MDRD (S/P/Bld) [Vol rate/Area] mL/min/{1.73_m2} Normal >60 [facility] Comment on above: Result Comment: These [...] renal tubular secretion. Performed By: #### B MARIANA, BNP ####[facility] Vjf5467 [place] [address] Lab Director: Yury Caba MD Glucose [Mass/Vol] 107 mg/dL High 70-99 [facility] Comment on above: Performed By: #### B MARIANA, BNP ####[facility] Sov6609 [place] [address] Lab Director: Yury Caba MD Potassium [Moles/Vol] 4.7 mmol/L Normal 3.7-5.3 [facility] Comment on above: Performed By: #### B MARIANA, BNP ####[facility] Zrg[address] [facility] [place] [address] Lab Director: Yury Caba MD Sodium [Moles/Vol] 133 mmol/L Low 135-144 [facility] Comment on above: Performed By: #### B MARIANA, BNP ####[facility] [address] [place] [address] Lab Director: Yury Caba MD Urea nitrogen [Mass/Vol] 14 mg/dL Normal 8-23 [facility] Comment on above: Performed By: #### B MP, BNP ####[facility] Ifq8852 [place] [address] lab Director: Yury Caba MD Brain Natri. Peptideon 11-16 Natriuretic peptide B (Bld) [Mass/Vol] 164 pg/mL Normal <300 [facility] Comment on above: Result Comment: An age-independent cutoff point of 300 pg/ml has a 98% negative predictive value excluding acute heart failure. Performed By: #### B MP, BNP ####[facility] Ldx8223 [place] [address] lab Director: Yury Caba MD Outside Labson 11-17-2023 Outside Labs [id number]#1 .00TIFF [facility] Consent for Treatmenton 0 Consent for Treatment [id number]#1 .00TIFF [facility] Consent for Procedure/Surger yon 11-04-2023 Consent for Procedure/Surgery [id number]#[address] [facility] FL ARTHR/ASP/INJ MAJOR JT/BU RSA RT WO USon 11-04-2023 FL ARTHR/ASP/INJ MAJOR JT/BURSA RT WO US Begin Addendum #1 FLUORO DOSE: 84. 497 mGy Reference air kerma (Ka,r) Interpreted by: Casa Minor Jr., MD Signed by: Casa Minor Jr., MD 11/04/23 Edited Result - FINAL [facility] [place] ARTHROGRAM RIGHT HIP S AN D Ion 11-04-2023 FL ARTHROGRAM RIGHT HIP S AND I Begin Addendum #1 FLUORO DOSE: 84. 497 mGy Reference air kerma (Ka,r) Interpreted by: Casa Minor Jr., MD Signed by: Casa Minor Jr., MD 11/04/23 Edited Result - FINAL Normal [facility] FL GUIDED NEEDLE PLACEMENTon 11-04-2023 FL GUIDED NEEDLE PLACEMENT Begin Addendum #1 FLUORO DOSE: 84. 497 mGy Reference air kerma (Ka,r) Interpreted by: Casa Minor Jr., MD Signed by: Casa Minor Jr., MD 11/04/23 Edited Result - FINAL Normal [facility] Ambulatory Visit Summaryon 0 11-02-2023 Ambulatory Visit Summary CARMEN BLEDSOE :1960 Visit Date:11/02/2023 Ambulatory Visit Instructions Your Diagnosis Elevated LFTs Hepatomegaly History of alcohol abuse History of colon polyps Smoker Your Care Team Attending Physician - Marjan SAMPSON, Walker Pritchett Primary Care Physician - Yocasta MSN, HEATER OPERATOR HELPER-BUFFER OPERATOR, Myron Hamilton This Is Your Medications List [...] Tuesday 3:00 PM EDT With: Where: [facility] [place] 2023 3:00 PM EDT With: Where: [facility] Invalid Interpretation Code [address] [place] [address]- \.br\ Tuesday 3:15 PM EDT \.br\ With: Adam SAMPSON, Alirio Hooper\.br\ Where: [facility] [place]\.br\ Tuesday 10:30 AM EDT \.br\ With:\.br\ Where: [facility]\.br\ Tuesday 12:00 PM EDT \.br\ With:\.br\ Where: [facility]\.br\ Tuesday 10:45 AM EDT \.br\ With: Marjan SAMPSON, Walker Pritchett\.br\ Where: [facility] Gastroenterology Office/Clin ic Noteon 11-02-2023 Gastroenterology [...] POLYP BIOPSY: TUBULAR ADENOMA. CBC/CMP 08/10/23 @ [facility]: RBC: (L) 3.78 MCV (H) 102.6 Alk [...] Will get chronic liver disease panel Ordered: Evynp-1-Esbputaiwhy KIM w/Reflex if POS Antimitochondrial Antibody, Quantitative Colonoscopy (Hospital Procedure) Comprehensive Metabolic Panel Current tobacco smoker 1034F E&M of New Patient Moderate 45-59 Min 35148 EGD Endoscopy (Hospital Procedure) Ferritin Fibroscan (Hospital [...] E&M of New Patient Moderate 45-59 Min 35096 EGD Endoscopy (Hospital Procedure) 3. 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 History of colon polyps (Z86.010: Personal history of colonic polyps) Had multiple TA's 2019, repeat colonoscopy Ordered: Colonoscopy (Hospital Procedure) E&M of New Patient Moderate 45-59 Min 59203 EGD Endoscopy (Hospital Procedure) 5. Smoker (F17.200: Nicotine dependence, unspecified, uncomplicated) Consulted Ordered: Colonoscopy (Hospital Procedure) E&M of New Patient Moderate 45-59 Min 62899 EGD Endoscopy (Hospital Procedure) Follow-up No qualifying [...] Tab, 4 (more content not included)... Normal [facility] Comment on above: Result Comment: Elec tronically Signed By: Marjan SAMPSON, Walker Pritchett\.br\Date and Time Signed: 11/02/23 11:03 EDT Physician Orderon 10-28-2023 Physician Order [id number]# 1.00TIFF Marcos Magana [facility] Family Medicine Office/Clini c Noteon [...] dose lung CT: _ List of Providers: Linux Engineer: Dr Ramirez Gastrointestinal: Dr Phillip LABS Cr/eGFR: [...] Microalb: 4.6 mcg/mL (08/20/22 15:02:00) Future Appointments [facility] Appt. Date: 11/02/2023 10:30 AM Scheduled Provider: Marjan SAMPSON, Walker Pritchett [address], [address] [facility] [address] [place], [address] Phone: [phone] Fax: [phone] [facility] Appt. Date: 11/10/2023 3:00 PM Scheduled Provider: SERGEI Yarbrough Nurse Phone: -- Fax: -- [facility] [place] Appt. Date: 12/06/2023 3:15 PM Scheduled Provider: Adam SAMPSON, Alirio Hooper [address] [place], [address] Fax: [phone] She admitted that she relapsed on her [...] appointment with the GI doctor up at [facility] for her hepatomegaly and elevated liver. [...] Does follow-up with Dr. Ramirez in the [place] office. Has been on her Lasix and [...] the office (more content not included)... Normal [facility] Comment on above: Result Comment: Elec tronically Signed By: Yocasta SMITH, HEATER OPERATOR HELPER- BUFFER OPERATOR, Myron Hamilton\.br\Date and Time Signed: 10/27/23 08:09 EDT\.br\Electronically Co-Signed [...] What to do next Scheduled Follow-Up Appointments Tuesday. 2023 10:30 AM EDT With: Marjan SAMPSON, Walker Pritchett Where: [facility] Invalid Interpretation Code [address] [place] [address]- \.br\ Tuesday 2:40 PM EDT \.br\ With: Yocasta SMITH, HEATER OPERATOR HELPER-BUFFER OPERATOR, Myron Hamilton\.br\ Where: [facility] Insurance Correspondenceon 0 10-26-2023 Insurance Correspondence [id number]# 1.00TIFF Normal [facility] Patient Educationon 10-26-19 Patient Education Cardiovascular [...] when you have heart failure Medicines Take ptbz-kzd-ygzzrqb and prescription medicines only as told by [...] vaccines. Pneu (more content not included)... Normal [facility] Ambulatory Visit Summaryon 0 10-25-2023 Ambulatory Visit Summary CARMEN BLEDSOE :1960 Visit Date:10/25/2023 Ambulatory Visit Instructions Your Diagnosis Benign hypertension Mixed hyperlipidemia Bilateral leg edema Your Care Team Attending Physician - Adam SAMPSON, Alirio Briggs. Primary Care Physician - Yocasta MSN, HEATER OPERATOR HELPER-BUFFER OPERATOR, Myron Hamilton Referring Physician - NONE, XXXX [...] Tuesday 1:20 PM EDT With: Yocasta SMITH, HEATER OPERATOR HELPER-BUFFER OPERATOR, Myron Hamilton Where: [facility] Invalid Interpretation Code [address] [id number] \.br\ 2023 3:00 PM EDT \.br\ With:\.br\ Where: [facility] Consent for Treatmenton 10-03 Consent for Treatment [id number] [facility] Heart and Vascular Office/Cl inic Noteon 10-25-2023 Heart and Vascular Office/Clinic Note Chief Complaint B/L EDEMA History of Present Illness 62-year-old female with history of bilateral lower extremity edema and diastolic heart failure as well as obesity, tobacco smoking, hypertension, hyperlipidemia. Negative stress test last year. Recently was having increased shortness of breath and lower extremity swelling went to [facility], and was told to take extra furosemide [...] refills Vi (more content not included)... Normal [facility] Comment on above: Result Comment: Elec [...] Adam SAMPSON, Alirio Hooper Where: [facility] [place] Tuesday 1:20 PM EDT With: Yocasta SMITH, Myron ESPINO Where: [facility] Medicine [facility] [address] [place] [address]- \.br\ You Need to Schedule the Following Appointments\.br \ Follow Up with Yocasta SMITH, SRINIVAS, Myron Hamilton When: In 2 weeks\.br\ Comments:\.br\ chronic care\.br\ Where:\.br\ [facility] Local[facility]\.br\ [place] [address]\.br\ Medications\.br\ What How Much When Why Instructions\.br \ New albuterol (albuterol 0.083% Inh Rochelle 3 mL) 3 Milliliter Inhalation Every 6 hours as needed for Shortness of breath or wheezing Refills: 1 Pickup at [facility] #72052\.br\ Changed dulaglutide (Trulicity Pen 1.5 mg/ 0.5 mL subcutaneous solution) 1.5 Milligram Subcutaneous Every week Pickup at [facility] #27785\.br\ Changed spironolactone (spironolactone 25 mg Tab) 1 Tablets By Mouth Every day Duration: 90 Days Pickup at [facility] #25317\.br\ Unchanged Misc Prescription (Nebulizer Machine) See instructions Moderate persistent asthma Nebulizer Machine Pickup at [facility] #36876\.br\ Unchanged Misc Prescription (Nebulizer Tubing and Mouthpiece Kit) See instructions Moderate persistent asthma Nebulizer Tubing and Mouthpiece Kit Pickup at [facility] #14242\.br\ Unchanged trazodone (traZODONE 50 mg Tab) 1 Tablets By Mouth Once a day (at bedtime) Pickup at [facility] #85820\.br\ Unchanged albuterol (Ventolin HFA 90 mcg/ inh [...] or concerns \.br\ Pharmacy Information\.br\ [facility] #[id number]: [address], [place] [id number] [phone]\.br\ \.br\ What How Much When Comments\.br\ Stop [...] personalized treatment goals for you. Generally, the [facility] Office/Mika Guzman 10-11-2023 Family Medicine Office/Clinic Note Chief Complaint Pt presents for [facility] ER F/U 10/06/23 for difficulty breathing. Valentino leg swelling HPI Staff ER followup: Hospital: [facility] Visit date:FGDL7T 10/06/23 Symptoms the patient presented with: difficulty breathing Symptom onset/injury onset: Testing Performed: New medications: New specialist involved Therapy ordered: Next appointment date: Current concerns: Pt C/O valentino leg swelling. History of Present Illness a 62-year-old female presenting today for an ER visit due to difficulty breathing. She is accompanied by her sister. She was recently at [facility] for difficulty breathing. She was found [...] a referral from me to gastrointestinal at [facility] for further evaluation of her hepatomegaly with [...] patient was recently admitted to [facility] on 10/06/2023 due to respiratory distress, which led to a diagnosis of heart failure. She exhausted her spironolactone supply and was subsequently advised to double her Lasix dosage, with the final dose scheduled for today. We will send her a refill for her spironolactone. She has an appointment scheduled with her blocker and sewer, Dr. Ramirez, later this month. Given her recent weight gain, it is evident that fluid accumulation results in a resurgence of her condition. She is also scheduled to consult with a kilnman for an enlarged liver. I am concerned [...] as pres (more content not included)... Normal [facility] Comment on above: Result Comment: Elec tronically Signed By: Yocasta SMITH, HEATER OPERATOR HELPER- Myron VILLATORO\.br\Date and Time Signed: 10/11/23 20:33 [...] these instructions at home: Medicines ? Take djxt-jim-gltignh and prescription medicines only as told by your health care provider. ? Do not stop taking your medicines or change the amount you take. If you are having problems or side effects from your medicines, talk to your health care provider. ? If you are having difficulty paying for your medicines, contact a social media specialist or your clinic. There are many programs [...] daily tasks (more content not included)... Normal [facility] ED Note-Physicianon 10-07-19 ED Note-Physician [id number] .00TIFF [facility] Basic Metabolic Profon 10-05 Anion gap [Moles/Vol] 12 mmol/L Normal 9-17 [facility] Comment on above: Performed By: #### B DAYANA CEJA BMP, TROPI, CDP #### [facility] [address] [place] [address] Bag Patcher: Yury Caba MD Calcium [Mass/Vol] 9.0 mg/dL Normal 8.6-10.4 [facility] Comment on above: Performed By: #### B DAYANA CEJA BMP, TROPI, CDP #### [facility] [address] [place] [address] Bag Patcher: Yury Caba MD Chloride [Moles/Vol] 100 mmol/L Normal 98-107 [facility] Comment on above: Performed By: #### B ACID DUMPER, DIME, BMP, TROPI, CDP #### [facility] [address] [place] [address] Bag Patcher: Yury Caba MD CO2 [Moles/Vol] 24 mmol/L Normal 20-31 [facility] Comment on above: Performed By: #### B ACID DUMPER, DIME, BMP, TROPI, CDP #### [facility] [address] [place] [address] Bag Patcher: Yury Caba MD Creatinine [Mass/Vol] 0.5 mg/dL Normal 0.5-0.9 [facility] Comment on above: Performed By: #### B ACID DUMPER, DIME, BMP, TROPI, CDP #### [facility] [address] [place] [address] Bag Patcher: Yury Caba MD GFR/1.73 sq M.predicted among non-blacks MDRD (S/P/Bld) [Vol rate/Area] mL/min/{1.73_m2} Normal >60 [facility] Comment on above: Result Comment: These [...] renal tubular secretion. Performed By: #### B ACID DUMPER, DIME, BMP, TROPI, CDP #### [facility] [address] [place] [address] Bag Patcher: Yury Caba MD Glucose [Mass/Vol] 122 mg/dL High 70-99 [facility] Comment on above: Performed By: #### B ACID DUMPER, DIME, BMP, TROPI, CDP #### [facility] [address] [place] [id number] Bag Patcher: Yury Caba MD Potassium [Moles/Vol] 3.4 mmol/L Low 3.7-5.3 [facility] Comment on above: Performed By: #### B ACID DUMPER, DIME, BMP, TROPI, CDP #### [facility] [address] [place], [place] [phone] Bag Patcher: Yury Caba MD Sodium [Moles/Vol] 136 mmol/L Normal 135-144 [facility] Comment on above: Performed By: #### B ACID DUMPER, DIME, BMP, TROPI, CDP #### [facility] [address] [place] [address] Bag Patcher: Yury Caba MD Urea nitrogen [Mass/Vol] 14 mg/dL Normal 8-23 [facility] Comment on above: Performed By: #### B ACID DUMPER, DIME, BMP, TROPI, CDP #### [facility] [address] [place] [id number] Bag Patcher: Yury Caba MD Brain Natri. Peptideon 10-05 Natriuretic peptide B (Bld) [Mass/Vol] 3161 pg/mL High <300 [facility] Comment on above: Result Comment: An age-independent cutoff point of 300 pg/ml has a 98% negative predictive value excluding acute heart failure. Performed By: #### B ACID DUMPER, DIME, BMP, TROPI, CDP #### [facility] [address] [place] [id number] Bag Patcher: Yury Caba MD CBC with Diffon 10-06-2023 Abs. Basophil 0.02 k/uL Normal 0.00-0.[address] [facility] Comment on above: Performed By: #### B ACID DUMPER, DIME, BMP, TROPI, CDP #### [facility] [address] [place], [place] [phone] Bag Patcher: Yury Caba MD Abs.Imm.Granulocyte 0.02 k/uL Normal 0.00-0.30 [facility] Comment on above: Performed By: #### B ACID DUMPER, DIME, BMP, TROPI, CDP #### [facility] [address] [place] [address] Bag Patcher: Yury Caba MD Abs.Neutrophil (Seg) 4.75 k/uL Normal 2.5-7.0 [facility] Comment on above: Performed By: #### B ACID DUMPER, DIME, BMP, TROPI, CDP #### [facility] [address] [place] [address] Bag Patcher: Yury Caba MD Basophils/100 WBC (Bld) 0 % Normal 0-2 [facility] Comment on above: Performed By: #### B ACID DUMPER, DIME, BMP, TROPI, CDP #### [facility] [address] [place] [address] Bag Patcher: Yury Caba MD Eosinophils (Bld) [#/Vol] 0.03 10*3/uL Normal 0.00-0.40 [facility] Comment on above: Performed By: #### B ACID DUMPER, DIME, BMP, TROPI, CDP #### [facility] [address] [place] [phone] Bag Patcher: Yury Caba MD Eosinophils/100 WBC (Bld) 1 % Normal 0-5 [facility] Comment on above: Performed By: #### B ACID DUMPER, DIME, BMP, TROPI, CDP #### [facility] [address] [place] [phone] Bag Patcher: Yury Caba MD Erythrocyte distribution width (RBC) [Ratio] 13.8 % Normal 12.1-15.2 [facility] Comment on above: Performed By: #### B ACID DUMPER, DIME, BMP, TROPI, CDP #### [facility] [address] [place] [id number] Bag Patcher: Yury Caba MD Hematocrit (Bld) [Volume fraction] 36.4 % Normal 36.0-46.0 [facility] Comment on above: Performed By: #### B ACID DUMPER, DIME, BMP, TROPI, CDP #### [facility] [address] [place] [address] Bag Patcher: Yury Caba MD Hemoglobin (Bld) [Mass/Vol] 12.5 g/dL Normal 12.0-16.0 [facility] Comment on above: Performed By: #### B ACID DUMPER, DIME, BMP, TROPI, CDP #### [facility] [address] [place] [address] Bag Patcher: Yury Caba MD Immature granulocytes/100 WBC (Bld) 0 % Normal 0-5 [facility] Comment on above: Performed By: #### B ACID DUMPER, DIME, BMP, TROPI, CDP #### [facility] [address] [place] [address] Bag Patcher: Yury Caba MD Lymphocytes (Bld) [#/Vol] 0.54 10*3/uL Low 1.00-4.80 [facility] Comment on above: Performed By: #### B ACID DUMPER, DIME, BMP, TROPI, CDP #### [facility] [address] [place] [address] Bag Patcher: Yury Caba MD Lymphocytes/100 WBC (Bld) 9 % Low 15-40 [facility] Comment on above: Performed By: #### B ACID DUMPER, DIME, BMP, TROPI, CDP #### [facility] [address] [place] [address] Bag Patcher: Yury Caba MD MCH (RBC) [Entitic mass] 34.1 pg High 26.0-34.0 [facility] Comment on above: Performed By: #### B ACID DUMPER, DIME, BMP, TROPI, CDP #### [facility] [address] [place] [address] Bag Patcher: Yury Caba MD MCHC (RBC) [Mass/Vol] 34.3 g/dL Normal 31.0-37.0 [facility] Comment on above: Performed By: #### B ACID DUMPER, DIME, BMP, TROPI, CDP #### [facility] [address] [place] [address] Bag Patcher: Yury Caba MD MCV (RBC) [Entitic vol] 99.2 fL Normal 80.0-100.0 [facility] Comment on above: Performed By: #### B ACID DUMPER, DIME, BMP, TROPI, CDP #### [facility] [address] [place] [address] Bag Patcher: Yury Caba MD Monocytes (Bld) [#/Vol] 0.47 10*3/uL Normal 0.00-1.00 [facility] Comment on above: Performed By: #### B ACID DUMPER, DIME, BMP, TROPI, CDP #### [facility] [address] [place] [address] Bag Patcher: Yury Caba MD Monocytes/100 WBC (Bld) 8 % Normal 4-8 [facility] Comment on above: Performed By: #### B ACID DUMPER, DIME, BMP, TROPI, CDP #### [facility] [address] [place] [phone] Bag Patcher: Yury Caba MD Neutrophil (Seg) 82 % High 47-75 [facility] Comment on above: Performed By: #### B ACID DUMPER, DIME, BMP, TROPI, CDP #### [facility] [address] [place] [address] Bag Patcher: Yury Caba MD Platelet mean volume (Bld) [Entitic vol] 9.0 fL Normal 6.0-12.0 [facility] Comment on above: Performed By: #### B ACID DUMPER, DIME, BMP, TROPI, CDP #### [facility] [address] [place] [address] Bag Patcher: Yury Caba MD Platelets (Bld) [#/Vol] 176 10*3/uL Normal 140-450 [facility] Comment on above: Performed By: #### B ACID DUMPER, DIME, BMP, TROPI, CDP #### [facility] [address] [place] [address] [phone] Bag Patcher: Yury Caba MD RBC (Bld) [#/Vol] 3.67 10*6/uL Low 4.00-5.20 [facility] Comment on above: Performed By: #### B ACID DUMPER, DIME, BMP, TROPI, CDP #### [facility] [address] [place] [address] Bag Patcher: Yury Caba MD WBC (Bld) [#/Vol] 5.8 10*3/uL Normal 3.5-11.0 [facility] Comment on above: Performed By: #### B ACID DUMPER, DIME, BMP, TROPI, CDP #### [facility] [address] [place] [address] Bag Patcher: Yury Caba MD D-Dimer Teston 10-06-2023 D-Dimer Test 0.68 ug/mL FEU High 0.00-0.59 [facility] Comment on above: Result Comment: When [...] B MARCIAL, DALY ANNE, TROPI, CDP #### [facility] [address] [place] [address] Bag Patcher: Yury Caba MD RAD - MISCon 10-06-2023 RAD - MISC [id number] [facility] Troponinon 10-06-2023 Troponin, High Sens 27 ng/L High 0-14 [facility] Comment on above: Result Comment: High Sensitivity Troponin values cannot be compared with other Troponin methodologies. Performed By: #### B MARCIAL, DALY ANNE, TROPI, CDP #### [facility] [address] [place] [address] Bag Patcher: Yury Caba MD XR CHEST (2 VW)on 10-06-2023 XR CHEST (2 VW) EXAM: XR CHEST (2 VW ) HISTORY: Shortness of breath COMPARISON: None. IMPRESSION: FINDINGS/IMPRESSION: 1. Shallow breath with clear lungs. 2. Mild cardiomegaly. Interpreted by: Casa Minor Jr., MD Signed by: Casa Minor Jr., MD 10/06/23 Final result Normal [facility] US LIVERon 08-24-2023 US LIVER [...] Braulio Crawley DO 08/24/23 Final result Normal [facility] Hemoglobin A1Con 08-11-2023 Glucose [Mass/Vol] 108 mg/dL Normal [facility] Comment on above: Result Comment: The ADA and AACC recommend providing the estimated average glucose result to permit better patient understanding of their HBA1c result. Performed By: #### G LYHGB, LIPR, URNMAB ####[facility] [address] [place] [address] Lab Director: Agusto Ferrell MD#### DYLAN ANNE CP, ZFAST ####[facility] [address] [place] [address] lab Director: Yury Caba MD HbA1c (Bld) [Mass fraction] 5.4 % Normal 4.0-6.0 [facility] Comment on above: Performed By: #### G LYHGB, LIPR, URNMAB ####[facility] [address] [place] [address] lab Director: Agusto Ferrell MD#### DYLAN ANNE CP, ZFAST ####[facility] [address] [place] [address] lab Director: Yury Caba MD Lipid Panelon 08-11-2023 Cholesterol [Mass/Vol] 206 mg/dL High NINF - 200 mg/dL [facility] Comment on above: Cholesterol Guidelines: <200 Desirable 200-240 Borderline >240 Undesirable Cholesterol in HDL [Mass/Vol] 95 mg/dL 40 - PINF mg/dL [facility] Comment on above: HDL Guidelines: <40 Undesirable 40-59 Borderline >59 Desirable Cholesterol in LDL [Mass/Vol] 67 mg/dL 0 - 130 mg/dL [facility] Comment on above: LDL Guidelines: <100 Desirable 100-129 Near to/above Desirable 130-159 Borderline >159 Undesirable Direct (measured) LDL and calculated LDL are not interchangeable tests. Cholesterol.total/Ch olesterol in HDL [Mass ratio] 2.2 {ratio} NINF - 5 [facility] Interpretation and review of laboratory results Abnormal [facility] Triglyceride [Mass/Vol] 221 mg/dL High NINF - 150 mg/dL [facility] Comment on above: Triglyceride Guidelines: <150 Desirable 150-199 Borderline 200-499 High >499 Very high Based on AHA Guidelines for fasting triglyceride, April 2012. [facility] Lipid Profileon 08-11-2023 Cholesterol [Mass/Vol] 206 mg/dL High <200 [facility] Comment on above: Result Comment: Cholesterol Guidelines: <200 Desirable 200-240 Borderline >240 Undesirable Performed By: #### G LYHGB, LIPR, URNMAB ####[facility] [address] [place] [address] Lab Director: Agusto Ferrell MD#### DYLAN ANNE CP, ZFAST ####[facility] [address] [place] [address] lab Director: Yury Caba MD Cholesterol in HDL [Mass/Vol] 95 mg/dL Normal >40 [facility] Comment on above: Result Comment: HDL Guidelines: <40 Undesirable 40-59 Borderline >59 Desirable Performed By: #### G LYHGB, LIPR, URNMAB ####[facility] [address] [place] [address] Lab Director: Agusto Ferrell MD#### DYLAN ANNE CP, ZFAST ####[facility] [address] [place], [place] [phone] Lab Director: Yury Caba MD Cholesterol in LDL [Mass/Vol] 67 mg/dL Normal 0-130 [facility] Comment on above: Result Comment: LDL Guidelines: <100 Desirable 100-129 Near to/above Desirable 130-159 Borderline >159 Undesirable Direct (measured) LDL and calculated LDL are not interchangeable tests. Performed By: #### G LYHGB, LIPR, URNMAB ####[facility] [address] [place] [address] Lab Director: Agusto Ferrell MD#### DYLAN ANNE, TAINA, ZFAST ####[facility] [address] [place], [place] [address])[phone] Director: Yury Caba MD Cholesterol.total/Ch olesterol in HDL [Mass ratio] 2.2 {ratio} Normal <5 [facility] Comment on above: Performed By: #### G LYHGB, LIPR, URNMAB ####[address] [address] Lab Director: Agusto Ferrell MD#### DYLAN ANNE, TAINA, ZFAST ####[facility] [address] [place], [place] [address])[phone] Director: Yury Caba MD Triglyceride [Mass/Vol] 221 mg/dL High <150 [facility] Comment on above: Result Comment: Triglyceride Guidelines: <150 Desirable 150-199 Borderline 200-499 High >499 Very high Based on AHA Guidelines for fasting triglyceride, April 2012. Performed By: #### G LYHGB, LIPR, URNMAB ####[facility] [address] [place] [address] Lab Director: Agusto Ferrell MD#### DYLAN ANNE, CP, ZFAST ####[facility] [address] [place], [place] [address])[phone] Director: Yury Caba MD Microalb.,Random Uron 2023 Creatinine [Mass/Vol] 45.3 mg/dL Normal 28.0-217.0 [facility] Comment on above: Performed By: #### G LYHGB, LIPR, URNMAB ####[facility] [address] [place] [address] Lab Director: Agusto Ferrell MD#### DYLAN ANNE, CP, ZFAST ####[facility] Ykl7126 [place] [address] lab Director: Yury Caba MD Microalb/Creat Ratio Can not be calculated Normal <25 [facility] Comment on above: Performed By: #### G LYHGB, LIPR, URNMAB ####[facility] [address] [place], [place] [phone] lab Director: Agusto Ferrell MD#### DYLAN ANNE, CP, ZFAST ####[facility] F[address] [place], [place] [phone] lab Director: Yury Caba MD Microalbumin conc. <12 Normal <21 [facility] Comment on above: Performed By: #### G LYHGB, LIPR, URNMAB ####[facility] [address] [place], [place] [phone] lab Director: Agusto Ferrell MD#### DYLAN ANNE, CP, ZFAST ####[facility] [address] [place], [place] [phone] lab Director: Yury Caba MD Microalbumin, Uron Albumin DL <= 20 mg/L (U) [Mass/Vol] mg/L [facility] - 21 mg/L [facility] Albumin/Creatinine DL <= 20 mg/L (U) [Ratio] Can not be calculated [facility] Creatinine (U) [Mass/Vol] 45.3 mg/dL 28.0 - 217.0 mg/dL [facility] XR HIP 2-3 VW W PELVIS RIGHT [...] Zaid Romero MD 08/11/23 Final result Normal [facility] XR Pelvis and Hip - right 2 Viewson 08-11-2023 Moderate degenerative joint space narrowing involves right hip without an acute osseous abnormality identified. [facility] CONSOLIDATED EXAM: XR HIP [...] hip shows no fracture or stress injury. [facility] CONSOLIDATED Zaid Romero MD - 08/11/2023 EXAM: [...] hip without an acute osseous abnormality identified. [facility] XR Pelvis and Hip - right 2 ViewsOrdered By: Zaid Romero on 08-11-2023 W[email or web address] Work Phone: CBC with Auto Differentialon 08-10-2023 Basophils (Bld) [#/Vol] 0.03 10*3/uL [facility] Basophils/100 WBC (Bld) 1 % 0 - 2 % [facility] Eosinophils (Bld) [#/Vol] 0.03 10*3/uL [facility] Eosinophils/100 WBC (Bld) 1 % 0 - 5 % [facility] Erythrocyte distribution width (RBC) [Ratio] 14.6 % 12.1 - 15.2 % [facility] Hematocrit (Bld) [Volume fraction] 38.8 % 36.0 - 46.0 % [facility] Hemoglobin (Bld) [Mass/Vol] 12.8 g/dL 12.0 - 16.0 g/dL [facility] Immature granulocytes (Bld) [#/Vol] 0.01 10*3/uL [facility] Immature granulocytes/100 WBC (Bld) 0 % 0 - 5 % [facility] Interpretation and review of laboratory results Abnormal [facility] Lymphocytes/100 WBC (Bld) 22 % 15 - 40 % [facility] Lymphocytes/100 WBC (Bld) 0.98 % Low [facility] MCH (RBC) [Entitic mass] 33.9 pg 26.0 - 34.0 pg [facility] MCHC (RBC) [Mass/Vol] 33.0 g/dL 31.0 - 37.0 g/dL [facility] MCV (RBC) [Entitic vol] 102.6 fL High 80.0 - 100.0 fL [facility] Monocytes/100 WBC (Bld) 8 % 4 - 8 % [facility] Monocytes/100 WBC (Bld) 0.34 % [facility] Neutrophils/100 WBC (Bld) 68 % 47 - 75 % [facility] Platelet mean volume (Bld) [Entitic vol] 9.0 fL 6.0 - 12.0 fL [facility] Platelets (Bld) [#/Vol] 192 10*3/uL [facility] RBC (Bld) [#/Vol] 3.78 10*6/uL Low 4.00 - 5.20 m/uL [facility] Segmented neutrophils/100 WBC (Bld) 2.99 % [facility] WBC other (Bld) [#/Vol] 4.4 [facility] CBC with Diffon 08-10-2023 Abs. Basophil 0.03 k/uL Normal 0.00-0.[address] [facility] Comment on above: Performed By: #### G LYHGB, LIPR, URNMAB ####[facility] [address] [place], [place] [phone] Director: Agusto Ferrell MD#### DYLAN ANNE, CP, ZFAST ####[facility] [address] [place], [place] [address])[phone] Director: Yury Caba MD Abs.Imm.Granulocyte 0.01 k/uL Normal 0.00-0.30 [facility] Comment on above: Performed By: #### G LYHGB, LIPR, URNMAB ####[place] [address] [place], [place] [address])[phone] Director: Agusto Ferrell MD#### DYLAN ANNE, CP, ZFAST ####[facility] [address] [place], [place] [address])[phone] Director: Yury Caba MD Abs.Neutrophil (Seg) 2.99 k/uL Normal 2.5-7.0 [facility] Comment on above: Performed By: #### G LYHGB, LIPR, URNMAB ####[place] [address] [place], [place] [address])[phone] Director: Agusto Ferrell MD#### DIMDarlene, DYLAN, CP, ZFAST ####[facility] [address] [place], [place] [address])[phone] Director: Yury Caba MD Basophils/100 WBC (Bld) 1 % Normal 0-2 [facility] Comment on above: Performed By: #### G LYHGB, LIPR, URNMAB ####[place] [address] [place] [address] Lab Director: Agusto Ferrell MD#### DIME, CDP, CP, ZFAST ####[facility] [address] [place], [place] [address])[phone] Director: Yury Caba MD Eosinophils (Bld) [#/Vol] 0.03 10*3/uL Normal 0.00-0.40 [facility] Comment on above: Performed By: #### G LYHGB, LIPR, URNMAB ####[address] [address])[phone] Director: Agusto Ferrell MD#### DIMDarlene, CDP, CP, ZFAST ####[facility] [address] [place], [place] [address])[phone] Director: Yury Caba MD Eosinophils/100 WBC (Bld) 1 % Normal 0-5 [facility] Comment on above: Performed By: #### G LYHGB, LIPR, URNMAB ####[place] [address] Lab Director: Agusto Ferrell MD#### DYLAN ANNE, CP, ZFAST ####[facility] [address] [place], [place] [address])[phone] Director: Yury Caab MD Erythrocyte distribution width (RBC) [Ratio] 14.6 % Normal 12.1-15.2 [facility] Comment on above: Performed By: #### G LYHGB, LIPR, URNMAB ####[facility] [address] [place] [address])[phone] Director: Agusto Ferrell MD#### DIMDYLAN Colon, CP, ZFAST ####[facility] [address] [place], [place] [address])[phone] Director: Yury Caba MD Hematocrit (Bld) [Volume fraction] 38.8 % Normal 36.0-46.0 [facility] Comment on above: Performed By: #### G LYHGB, LIPR, URNMAB ####[facility] [address] [place], [place] [phone])[phone] Director: Agusto Ferrell MD#### DIME, CDP, CP, ZFAST ####[facility] [address]64 [place] [address] Lab Director: Yury Caba MD Hemoglobin (Bld) [Mass/Vol] 12.8 g/dL Normal 12.0-16.0 [facility] Comment on above: Performed By: #### G LYHGB, LIPR, URNMAB ####[place] [address] [place], [place] [id number])[phone] Director: Agusto Ferrell MD#### DIME, CDP, CP, ZFAST ####[facility] [address] [place], [place] [address])[phone] Director: Yury Caba MD Immature granulocytes/100 WBC (Bld) 0 % Normal 0-5 [facility] Comment on above: Performed By: #### G LYHGB, LIPR, URNMAB ####[place] [place] [address] Lab Director: Agusto Ferrell MD#### DIMDarlene, CDP, CP, ZFAST ####[facility] Ymk[address]602 [place] [address] Lab Director: Yury Caba MD Lymphocytes (Bld) [#/Vol] 0.98 10*3/uL Low 1.00-4.80 [facility] Comment on above: Performed By: #### G LYHGB, LIPR, URNMAB ####[facility] [address] [place] [address] Lab Director: Agusto Ferrell MD#### DIME, CDP, CP, ZFAST ####[facility] N[address] [place], [place] [phone] Lab Director: Yury Caba MD Lymphocytes/100 WBC (Bld) 22 % Normal 15-40 [facility] Comment on above: Performed By: #### G LYHGB, LIPR, URNMAB ####[facility] [address] [place], [place] [address] Lab Director: Agusto Ferrell MD#### DIME, CDP, CP, ZFAST ####[facility] [address] [place], [place] [phone] Lab Director: Yury Caba MD MCH (RBC) [Entitic mass] 33.9 pg Normal 26.0-34.0 [facility] Comment on above: Performed By: #### G LYHGB, LIPR, URNMAB ####[address] [phone] Lab Director: Agusto Ferrell MD#### DIME, CDP, CP, ZFAST ####[facility] [address]37 [place] [address] Lab Director: Yury Caba MD MCHC (RBC) [Mass/Vol] 33.0 g/dL Normal 31.0-37.0 [facility] Comment on above: Performed By: #### G LYHGB, LIPR, URNMAB ####[facility] [address] [place] [address] Lab Director: Agusto Ferrell MD#### DIME, CDP, CP, ZFAST ####[facility] [address] [place], [place] [phone] Lab Director: Yury Caba MD MCV (RBC) [Entitic vol] 102.6 fL High 80.0-100.0 [facility] Comment on above: Performed By: #### G LYHGB, LIPR, URNMAB ####[facility] [address] [place] [address] Lab Director: Agusto Ferrell MD#### DIMDarlene, DYLAN, CP, ZFAST ####[facility] [address]16 [place] [address] Lab Director: Yury Caba MD Monocytes (Bld) [#/Vol] 0.34 10*3/uL Normal 0.00-1.00 [facility] Comment on above: Performed By: #### G LYHGB, LIPR, URNMAB ####[facility] [place] [address] [phone] Lab Director: Agusto Ferrell MD#### DYLAN ANNE, CP, ZFAST ####[facility] K[address]44 [place], [place] [phone] Lab Director: Yury Caba MD Monocytes/100 WBC (Bld) 8 % Normal 4-8 [facility] Comment on above: Performed By: #### G LYHGB, LIPR, URNMAB ####[address] [address] Lab Director: Agusto Ferrell MD#### DYLAN ANNE, CP, ZFAST ####[facility] [address]3671 [place] [address] Lab Director: Yury Caba MD Neutrophil (Seg) 68 % Normal 47-75 [facility] Comment on above: Performed By: #### G LYHGB, LIPR, URNMAB ####[facility] [place] [address] Lab Director: Agusto Ferrell MD#### DAYANA, DYLAN, CP, ZFAST ####[facility] [address] [place], [place] [phone] Lab Director: Yury Caba MD Platelet mean volume (Bld) [Entitic vol] 9.0 fL Normal 6.0-12.0 [facility] Comment on above: Performed By: #### G LYHGB, LIPR, URNMAB ####[facility] [address] [place], [place] [phone])[phone] Director: Agusto Ferrell MD#### DIME, CDP, CP, ZFAST ####[facility] Q[address] [place], [place] [phone] Director: Yury Caba MD Platelets (Bld) [#/Vol] 192 10*3/uL Normal 140-450 [facility] Comment on above: Performed By: #### G LYHGB, LIPR, URNMAB ####[facility] [address] [place], [place] [phone] Director: Agusto Ferrell MD#### DIME, CDP, CP, ZFAST ####[facility] [address] [place], [place] [phone] Director: Yury Caba MD RBC (Bld) [#/Vol] 3.78 10*6/uL Low 4.00-5.20 [facility] Comment on above: Performed By: #### G LYHGB, LIPR, URNMAB ####[facility] [address] [place], [place] [phone])[phone] Director: Agusto Ferrell MD#### DIME, CDP, CP, ZFAST ####[facility] Crp[address]78 [place], [place] [phone] Director: Yury Caba MD WBC (Bld) [#/Vol] 4.4 10*3/uL Normal 3.5-11.0 [facility] Comment on above: Performed By: #### G LYHGB, LIPR, URNMAB ####[facility] [address] [place], [place] [phone])[phone] Director: Agusto Ferrell MD#### DIME, CDP, CP, ZFAST ####[facility] [address]q3722 [place] [address] Lab Director: Yury Caba MD Comp Metabolic Profon 2023 Albumin [Mass/Vol] 4.3 g/dL Normal 3.5-5.2 [facility] Comment on above: Performed By: #### G LYHGB, LIPR, URNMAB ####[facility] [address] [place] [address] Lab Director: Agusto Ferrell MD#### DIME, CDP, CP, ZFAST ####[facility] [address]273 [place] [address] Lab Director: Yury Caba MD Alkaline Phos 169 U/L High 35-[address] [facility] Comment on above: Performed By: #### G LYHGB, LIPR, URNMAB ####[facility] [address] [place] [address] Lab Director: Agusto Ferrell MD#### DAYANA, DYLAN, CP, ZFAST ####[facility] [address] [place] [address] Lab Director: Yury Caba MD ALT [Catalytic activity/Vol] 84 U/L High 5-33 [facility] Comment on above: Performed By: #### G LYHGB, LIPR, URNMAB ####[facility] [address] [place] [address] Lab Director: Agusto Ferrell MD#### DIMDarlene, CDP, CP, ZFAST ####[facility] Fjx3985 [place] [address] Lab Director: Yury Caba MD Anion gap [Moles/Vol] 13 mmol/L Normal 9-17 [facility] Comment on above: Performed By: #### G LYHGB, LIPR, URNMAB ####[facility] [address] [place] [address] Lab Director: Agusto Ferrell MD#### DYLAN ANNE, CP, ZFAST ####[facility] Ecv4053 [place] [address] Lab Director: Yury Caba MD AST [Catalytic activity/Vol] 83 U/L High <32 [facility] Comment on above: Performed By: #### G LYHGB, LIPR, URNMAB ####[facility] [address]xl[address] [place] [address] Lab Director: Agusto Ferrell MD#### DYLAN ANNE, CP, ZFAST ####[facility] [address] [place], [place] [phone] Lab Director: Yury Caba MD Bilirubin [Mass/Vol] 0.4 mg/dL Normal 0.3-1.2 [facility] Comment on above: Performed By: #### Loly LYHGB, LIPR, URNMAB ####[facility] [place] [address] Lab Director: Agusto Ferrell MD#### DYLAN ANNE, CP, ZFAST ####[facility] Lmg6866 [place] [address] Lab Director: Yury Caba MD BUN/CRE Ratio 17 Normal 9-[address] [facility] Comment on above: Performed By: #### Loly LYHGB, LIPR, URNMAB ####[facility] [place] [address] Lab Director: Agusto Ferrell MD#### DYLAN ANNE, CP, ZFAST ####[facility] [address] [place] [address] Lab Director: Yury Caba MD Calcium [Mass/Vol] 9.3 mg/dL Normal 8.6-10.4 [facility] Comment on above: Performed By: #### G LYHGB, LIPR, URNMAB ####[facility] [address] [place] [address] Lab Director: Agusto Ferrell MD#### DIME, CDP, CP, ZFAST ####[facility] [address]26 [place] [address] Lab Director: Yury Caba MD Chloride [Moles/Vol] 98 mmol/L Normal 98-107 [facility] Comment on above: Performed By: #### G LYHGB, LIPR, URNMAB ####[facility] [address] [place] [address] Lab Director: Agusto Ferrell MD#### DIME, CDP, CP, ZFAST ####[facility] [address]34 [place] [address] Lab Director: Yury Caba MD CO2 [Moles/Vol] 26 mmol/L Normal 20-31 [facility] Comment on above: Performed By: #### G LYHGB, LIPR, URNMAB ####[facility] [place] [address] Lab Director: Agusto Ferrell MD#### DIME, CDP, CP, ZFAST ####[facility] Fpr[address]12 [place] [address] Lab Director: Yury Caba MD Creatinine [Mass/Vol] 0.6 mg/dL Normal 0.5-0.9 [facility] Comment on above: Performed By: #### G LYHGB, LIPR, URNMAB ####[facility] [address] [place] [address] Lab Director: Agusto Ferrell MD#### DIME, CDP, CP, ZFAST ####[facility] Qrl1595 [place] [address] Lab Director: Yury Caba MD GFR/1.73 sq M.predicted among non-blacks MDRD (S/P/Bld) [Vol rate/Area] mL/min/{1.73_m2} Normal >60 [facility] Comment on above: Result Comment: These [...] renal tubular secretion. Performed By: #### G LYJAME LIPR, URNMAB ####[address] [address] Lab Director: Agusto Ferrell MD#### DYLAN ANNE CP, ZFAST ####[facility] [id number] [place] [id number] lab Director: Yury Caba MD Glucose [Mass/Vol] 91 mg/dL Normal 70-99 [facility] Comment on above: Performed By: #### Loly RAMSEY, LIPR, URNMAB ####[address] [address] Lab Director: Agusto Ferrell MD#### DYLAN ANNE CP, ZFAST ####[facility] [id number] [place] [address] lab Director: Yury Caba MD Potassium [Moles/Vol] 4.3 mmol/L Normal 3.7-5.3 [facility] Comment on above: Performed By: #### G LYHGB, LIPR, URNMAB ####[address] [id number] Lab Director: Agusto Ferrell MD#### DYLAN ANNE CP, ZFAST ####[facility] [id number] [facility] [place] [address] Lab Director: Yury Caba MD Protein [Mass/Vol] 7.2 g/dL Normal 6.4-8.3 [facility] Comment on above: Performed By: #### G LYHGB, LIPR, URNMAB ####[facility] [address] [place] [address] Lab Director: Agusto Ferrell MD#### DAYANA, DYLAN, CP, ZFAST ####[facility] [id number] [place] [address] Lab Director: Yury Caba MD Sodium [Moles/Vol] 137 mmol/L Normal 135-144 [facility] Comment on above: Performed By: #### G LYHGB, LIPR, URNMAB ####[facility] [address] [place] [address] Lab Director: Agusto Ferrell MD#### DYLAN ANNE, CP, ZFAST ####[facility] [id number] [place], [place] [id number] Lab Director: Yury Caba MD Urea nitrogen [Mass/Vol] 10 mg/dL Normal 8-23 [facility] Comment on above: Performed By: #### G LYHGB, LIPR, URNMAB ####[facility] [address] [place] [address] Lab Director: Agusto Ferrell MD#### DAYANA, DYLAN, CP, ZFAST ####[facility] [id number] [place], [place] [id number] Lab Director: Yury Caba MD Comprehensive Metabolic Pane usman 08-10-2023 Albumin [Mass/Vol] 4.3 g/dL 3.5 - 5.2 g/dL [facility] ALP [Catalytic activity/Vol] 169 U/L High 35 - 104 U/L [facility] ALT [Catalytic activity/Vol] 84 U/L High 5 - 33 U/L [facility] Anion gap [Moles/Vol] 13 mmol/L 9 - 17 mmol/L [facility] AST [Catalytic activity/Vol] 83 U/L High NINF - 32 U/L [facility] Bilirubin [Mass/Vol] 0.4 mg/dL 0.3 - 1.2 mg/dL [facility] Calcium [Mass/Vol] 9.3 mg/dL 8.6 - 10.4 mg/dL [facility] Chloride [Moles/Vol] 98 mmol/L 98 - 107 mmol/L [facility] CO2 [Moles/Vol] 26 mmol/L 20 - 31 mmol/L [facility] Creatinine [Mass/Vol] 0.6 mg/dL 0.5 - 0.9 mg/dL [facility] GFR/1.73 sq M.predicted MDRD (S/P/Bld) [Vol rate/Area] - PINF [facility] Comment on above: These results are not [...] [Mass/Vol] 91 mg/dL 70 - 99 mg/dL [facility] Interpretation and review of laboratory results Abnormal [facility] Potassium [Moles/Vol] 4.3 mmol/L 3.7 - 5.3 mmol/L [facility] Protein [Mass/Vol] 7.2 g/dL 6.4 - 8.3 g/dL [facility] Sodium [Moles/Vol] 137 mmol/L 135 - 144 mmol/L [facility] Urea nitrogen [Mass/Vol] 10 mg/dL 8 - 23 mg/dL [facility] Urea nitrogen/Creatinine [Mass ratio] 17 mg/mg 9 - 20 [facility] D-Dimer Teston 08-10-2023 D-Dimer Test 0.51 ug/mL FEU Normal 0.00-0.59 [facility] Comment on above: Result Comment: When [...] Performed By: #### G LYHGB, LIPR, URNMAB ####[address] [place] [address] Lab Director: Agusto Ferrell MD#### DAYANA, DYLAN, CP, ZFAST ####[facility] [address] [place], [place] [id number] Lab Director: Yury Caba MD D-Dimer, Quantitativeon -0 Fibrin D-dimer FEU (PPP) [Mass/Vol] 0.51 [facility] Comment on above: When combined with a [...] more prevalent in patients with distal DVT. [facility] Patient fasting?on 4 Patient fasting? Patient Refused Normal [facility] Comment on above: Performed By: #### G LYHGB, LIPR, URNMAB ####[facility] [address] [place], [place] [id number] Lab Director: Agusto Ferrell MD#### DAYANA, DYLAN, CP, ZFAST ####[facility] [id number] [place], [place] [id number] Lab Director: Yury Caba MD XR Pelvis and Hip - right 2 Viewson 08-10-2023 Radiology Study observation (narrative) [facility] DUP LOWER EXTREMITY VENOU S BILATERALon 12-01-2022 Negative. [facility] CONSOLIDATED EXAM: VL DUP LOWER EXTREMITY VENOUS [...] within the superficial or deep system bilaterally. [facility] CONSOLIDATED Casa Minor Jr., MD - 12/01/2022 [...] superficial or deep system bilaterally. IMPRESSION: Negative. [employer] Phone: Radiology Study observation (narrative) [employer] Phone: VL DUP LOWER EXTREMITY VENOU S BILATERALOrdered By: Casa Minor on 12-01-2022 [employer] Phone: XR CERVICAL SPINE (4-5 VIEWS )on 10-19-2022 FINDINGS/IMPRESSION: 1. Moderate disc space narrowing and anterior osteophyte formation from C4-C5 inferiorly. 2. Intervertebral foramina show minimal narrowing bilaterally due to facet and uncovertebral osteophytes. 3. No fracture. [facility] RIS CONSOLIDATED EXAM: XR CERVICAL SPINE (4-5 VIEWS). HISTORY: Left hand weakness. COMPARISON: None. [facility] CONSOLIDATED Casa Minor Jr., MD - 10/19/2022 EXAM: XR CERVICAL SPINE (4-5 VIEWS). HISTORY: Left hand weakness. COMPARISON: None. IMPRESSION: FINDINGS/IMPRESSION: 1. Moderate disc space narrowing and anterior osteophyte formation from C4-C5 inferiorly. 2. Intervertebral foramina show minimal narrowing bilaterally due to facet and uncovertebral osteophytes. 3. No fracture. [employer] Phone: Radiology Study observation (narrative) [employer] Phone: XR CERVICAL SPINE (4-5 VIEWS )Ordered By: Casa Minor on 10-19-2022 [employer] Phone: XR LUMBAR SPINE (MIN 4 VIEWS )on 10-19-2022 FINDINGS/IMPRESSION: 1. Moderate to moderately severe diffuse disc space narrowing and osteophyte formation similar to previous. 2. Mild facet degenerative change L4-L5 and L5-S1. 3. No fracture or pars defects. 4. Slight convex right lumbar curve unchanged. [facility] RIS CONSOLIDATED EXAM: XR LUMBAR SPIN E (MIN 4 VIEWS) HISTORY: Weakness of both legs COMPARISON: CT abdomen and pelvis 02/07/2020. [facility] RIS CONSOLIDATED Casa Minor Jr., [...] 4. Slight convex right lumbar curve unchanged. [facility] [employer] Work Phone: Radiology Study observation (narrative) [facility] [employer] Work Phone: XR LUMBAR SPINE (MIN 4 VIEWS )Ordered By: Casa Minor on 10-19-2022 [facility] [employer] Work Phone: Glucose, Whole Bloodon 10-15 Glucose [Mass/Vol] 127 mg/dL High 65 - 99 mg/dL [facility] Interpretation and review of laboratory results Abnormal [facility] POCT glucoseOrdered By: Dilan Prescott on 10-15-2022 Interpretation and review of laboratory results Normal [facility] [employer] QC OK? y [facility] [employer] Brain Natriuretic Peptideon 10-14-2022 Natriuretic peptide B (Bld) [Mass/Vol] 42 pg/mL NINF - 300 pg/mL [facility] [employer] Comment on above: An age-independent cutoff point of 300 pg/ml has a 98% negative predictive value excluding acute heart failure. CBC with Auto Differentialon 10-14-2022 Absolute Eos # 0.10 [facility] Absolute Lymph # 1.60 [facility] SECO URS [facility] Absolute Uvalde # 0.40 [facility] RS [facility] [employer] Basophils (Bld) [#/Vol] 0.00 10*3/uL [facility] Basophils/100 WBC (Bld) 1 % 0 - 2 % [facility] Differential Type YES [facility] Eosinophils/100 WBC (Bld) 2 % 0 - 5 % [facility] Hematocrit (Bld) [Volume fraction] 41.4 % 36 - 46 % [facility] Hemoglobin (Bld) [Mass/Vol] 13.5 g/dL 12.0 - 16.0 g/dL [facility] Interpretation and review of laboratory results Abnormal [facility] Lymphocytes/100 WBC (Bld) 24 % 15 - 40 % [facility] MCH (RBC) [Entitic mass] 30.8 pg 26 - 34 pg [facility] MCHC (RBC) [Mass/Vol] 32.7 g/dL 31 - 37 g/dL [facility] MCV (RBC) [Entitic vol] 94.3 fL 80 - 100 fL [facility] Monocytes/100 WBC (Bld) 5 % 4 - 8 % [facility] Platelet distribution width (Bld) [Ratio] 16.4 % High 12.1 - 15.2 % [facility] Platelets (Bld) [#/Vol] 264 10*3/uL [facility] RBC (Bld) [#/Vol] 4.39 10*6/uL 4.0 - 5.2 m/uL B [facility] Segmented neutrophils/100 WBC (Bld) 68 % 47 - 75 % [facility] Segs Absolute 4.70 [facility] WBC (Bld) [#/Vol] 6.9 10*3/uL [facility] CMPon 10-14-2022 Albumin [Mass/Vol] 4.4 g/dL 3.5 - 5.2 g/dL [facility] ALP [Catalytic activity/Vol] 86 U/L 35 - 104 U/L [facility] ALT [Catalytic activity/Vol] 33 U/L 5 - 33 U/L [facility] Anion gap [Moles/Vol] 14 mmol/L 9 - 17 mmol/L [facility] AST [Catalytic activity/Vol] 29 U/L NINF - 32 U/L [facility] Bilirubin [Mass/Vol] 0.3 mg/dL 0.3 - 1.2 mg/dL [facility] Calcium [Mass/Vol] 8.8 mg/dL 8.6 - 10.4 mg/dL [facility] Chloride [Moles/Vol] 96 mmol/L Low 98 - 107 mmol/L [facility] CO2 [Moles/Vol] 23 mmol/L 20 - 31 mmol/L [facility] Creatinine [Mass/Vol] 0.8 mg/dL 0.50 - 0.90 mg/dL [facility] GFR/1.73 sq M.predicted MDRD (S/P/Bld) [Vol rate/Area] - PINF [facility] Comment on above: These results are not [...] 108 mg/dL High 70 - 99 mg/dL [facility] Potassium [Moles/Vol] 3.9 mmol/L 3.7 - 5.3 mmol/L [facility] Protein [Mass/Vol] 7.4 g/dL 6.4 - 8.3 g/dL [facility] Sodium [Moles/Vol] 133 mmol/L Low 135 - 144 mmol/L [facility] Urea nitrogen [Mass/Vol] 11 mg/dL 6 - 20 mg/dL [facility] Urea nitrogen/Creatinine (Bld) [Mass ratio] 14 9 - 20 [facility] Ethanolon 10-14-2022 Ethanol [Mass/Vol] 230 mg/dL High NINF - 10 mg/dL B [facility] Ethanol percent 0.23 % [facility] No Panel Informationon 10-14 [facility] Interpretation and review of laboratory results Abnormal [facility] Troponinon 10-14-2022 Troponin I.cardiac DL <= 0.01 ng/mL [Mass/Vol] 6 ng/L 0 - 14 ng/L [facility] Comment on above: High Sensitivity Tro ponin [...] thorax is noted. Bony elements are intact. PN RIS CONSOLIDATED Monroe Grant, DO - 10/14/2022 [...] 1. Mild cardiomegaly. 2. Mild bibasilar atelectasis. [employer] Work Phone: Radiology Study observation (narrative) [employer] Work Phone: XR CHEST PORTABLEOrdered By: Monroe Grant on 10-14-2022 [employer] Work Phone: CKon 10-13-2022 CK [Catalytic activity/Vol] 39 U/L 26 - 192 U/L Fon [facility] Vitamin D 25 Hydroxyon 10-13 25-hydroxyvitamin D3 [Mass/Vol] 19.9 ng/mL Low 29.9 - PINF ng/mL [employer] Comment on above: Reference Range: Vitamin D status Range Deficiency <20 ng/mL Mild Deficiency 20-30 ng/mL Sufficiency 30-100 ng/mL Toxicity >100 ng/mL Interpretation and review of laboratory results Abnormal [employer] CHEMISTRYOrdered By: SYSTEM SYSTEM on 10-06-2022 Anion gap [Moles/Vol] 11 mmol/L Normal 6 - 16 mEq/L [facility] Remisol Calcium [Mass/Vol] 9.2 mg/dL Normal 8.9 - 11.1 mg/dL [facility] Remisol Chloride [Moles/Vol] 100 mmol/L Low 101 - 111 mmol/ L [facility] Remisol CO2 [Moles/Vol] 28 mmol/L Normal 21 - 31 mmol/L [facility] Remisol Creatinine [Mass/Vol] 0.8 mg/dL Normal 0.5 - 1.3 mg/dL [facility] Remisol GFR/1.73 sq M.predicted among blacks MDRD (S/P/Bld) [Vol rate/Area] mL/min/1.73 m2 Normal >=59mL/min/1.73 m2 [facility] Chem S GFR/1.73 sq M.predicted among non-blacks MDRD (S/P/Bld) [Vol rate/Area] mL/min/1.73 m2 Normal >=59mL/min/1.73 m2 [facility] Chem S Glucose [Mass/Vol] 180 mg/dL Normal 55 - 199 mg/dL [facility] Remisol Magnesium [Mass/Vol] 2.4 mg/dL Normal 1.3 - 2.4 mg/dL [facility] Remisol Potassium [Moles/Vol] 4.2 mmol/L Normal 3.5 - 5.3 mmol/L [facility] Remisol Sodium [Moles/Vol] 135 mmol/L Normal 135 - 145 mmol/L [facility] Remisol Urea nitrogen [Mass/Vol] 12 mg/dL Normal 5 - 21 mg/dL [facility] Remisol Urea nitrogen/Creatinine [Mass ratio] 15 mg/mg Normal 10 - 20 [facility] Remisol CHEMISTRYOrdered By: SYSTEM SYSTEM on 09-29-2022 Magnesium [Mass/Vol] 2.8 mg/dL High 1.3 - 2.4 mg/dL [facility] Remisol Glucose Glucometer (BldC) [M ass/Vol]Ordered By: José Sanchez on 09-14-2022 Glucose [Mass/Vol] 248 mg/dL [facility] Comment on above: Random Glucose Refer ence Range is dependent on time and content of last meal. Glucose of more than 200 mg/dL in a nonstressed, ambulatory subject supports the diagnosis of Diabetes Mellitus. Glucose Poct Glucometerson 0 09-14-2022 Glucose [Mass/Vol] 248 mg/dL Normal [facility] Comment on above: Result Comment: [facility] Glucose Reference Range is dependent on time and content of last meal. Glucose of more than 200 mg/dL in a nonstressed, ambulatory subject supports the diagnosis of Diabetes Mellitus. PERFORMED BY: [facility] [address] [place] [address] PATHOLOGIST RELEASE MANAGER EZRA MCCLAIN M.D. Performed By: #### G LULS #### Point of Care testing , Glucose [Mass/Vol] 253 mg/dL Normal [facility] Comment on above: Result Comment: [facility] Glucose Reference Range is dependent on time and content of last meal. Glucose of more than 200 mg/dL in a nonstressed, ambulatory subject supports the diagnosis of Diabetes Mellitus. PERFORMED BY: [facility] [address] [place] [address] PATHOLOGIST RELEASE MANAGER EZRA MCCLAIN M.D. Performed By: #### G LULS #### Point of Care testing , Alanine aminotransferase [En zymatic activity/volume] in Serum or PlasmaOrdered By: Rockydacuca Riosr on 09-13-2022 ALT [Catalytic activity/Vol] 59 U/L 7-[address] [facility] Albumin [Mass/volume] in Ser um or Plasma by Bromocresol green (BCG) dye binding methoOrdered By: Obsruthidacuca Mejiaomar on 09-13-2022 Albumin BCG dye [Mass/Vol] 4.6 g/dL 3.5-5.[address] [facility] Alkaline phosphatase [Enzyma tic activity/volume] in Serum or PlasmaOrdered By: Obaydah Robertoomar on 09-13-2022 ALP [Catalytic activity/Vol] 103 U/L 34-[address] [facility] Aspartate aminotransferase [ Enzymatic activity/volume] in Serum or PlasmaOrdered By: Obaydah Robertoomar on 09-13-2022 AST [Catalytic activity/Vol] 80 U/L 13-[address] [facility] Basophils Auto (Bld) [#/Vol] Ordered By: Obsruthidacuca Mejiaomar on 09-13-2022 Basophils (Bld) [#/Vol] 0.0 10*3/uL 0.0-0.[address] [facility] Basophils/100 WBC Auto (Bld) Ordered By: Obartur Mejiaomar on 09-13-2022 Basophils/100 WBC (Bld) 0.2 % . [facility] Bilirubin.total [Mass/volume ] in Serum or PlasmaOrdered By: Obsruthidacuca Daromar on 09-13-2022 Bilirubin [Mass/Vol] 0.4 mg/dL 0.3-1.0 [facility] Calcium [Mass/volume] in Ser um or PlasmaOrdered By: Obaydacuca Daromar on 09-13-2022 Calcium [Mass/Vol] 9.1 mg/dL 8.6-10.3 [facility] Carbon dioxide, total [Moles /volume] in Serum or PlasmaOrdered By: Obsruthidacuca Daromar on 09-13-2022 CO2 [Moles/Vol] 29.3 mmol/L 21.0-31.0 [facility] Chloride [Moles/volume] in S caitlyn or PlasmaOrdered By: Obsruthidacuca Daromar on 09-13-2022 Chloride [Moles/Vol] 96 mmol/L 98-107 [facility] Complete Blood Count Auto Di ffon 09-13-2022 Basophils (Bld) [#/Vol] 0.0 10*3/uL Normal 0.0-0.[address] [facility] Comment on above: Result Comment: PERF ORMED BY: [facility] [address] [place] [address] PATHOLOGIST RELEASE MANAGER EZRA MCCLAIN M.D. Performed By: #### G LULS #### Point of Care testing , Basophils/100 WBC (Bld) 0.2 % Normal . [facility] Comment on above: Performed By: #### G LULS #### Point of Care testing , Eosinophils (Bld) [#/Vol] 0.0 10*3/uL Normal 0.0-0.[address] [facility] Comment on above: Performed By: #### G LULS #### Point of Care testing , Eosinophils/100 WBC (Bld) 0.0 % Normal . [facility] Comment on above: Performed By: #### Loly WIGGINSLS #### Point of Care testing , Erythrocyte distribution width (RBC) [Ratio] 18.2 % High 11.9-15.[address] [facility] Comment on above: Performed By: #### Loly WIGGINSLS #### Point of Care testing , Hematocrit (Bld) [Volume fraction] 38.3 % Normal 34.0-46.[address] [facility] Comment on above: Performed By: #### Loly PRUETT #### Point of Care testing , Hemoglobin (Bld) [Mass/Vol] 12.7 g/dL Normal 11.8-15.[address] [facility] Comment on above: Performed By: #### Loly PRUETT #### Point of Care testing , Lymphocytes (Bld) [#/Vol] 0.5 10*3/uL Low 1.00-4.[address] [facility] Comment on above: Performed By: #### Loly WIGGINSLS #### Point of Care testing , Lymphocytes/100 WBC (Bld) 6.4 % Normal . [facility] Comment on above: Performed By: #### Loly PRUETT #### Point of Care testing , MCH (RBC) [Entitic mass] 31.7 pg Normal 24.7-34.[address] [facility] Comment on above: Performed By: #### Loly PRUETT #### Point of Care testing , MCV (RBC) [Entitic vol] 95.9 fL Normal 80-[address] [facility] Comment on above: Performed By: #### Loly PRUETT #### Point of Care testing , Mean Corpuscular HGB Conc 33.1 g/dL Normal 32.0-35.[address] [facility] Comment on above: Performed By: #### Loly WIGGINSLS #### Point of Care testing , Monocytes (Bld) [#/Vol] 0.3 10*3/uL Normal 0.0-0.[address] [facility] Comment on above: Performed By: #### Loly PRUETT #### Point of Care testing , Monocytes/100 WBC (Bld) 3.8 % Normal . [facility] Comment on above: Performed By: #### Loly PRUETT #### Point of Care testing , Neutrophils (Bld) [#/Vol] 6.8 10*3/uL Normal 1.8-7.[address] [facility] Comment on above: Performed By: #### Loly WIGGINSLS #### Point of Care testing , Neutrophils/100 WBC (Bld) 89.6 % Normal . [facility] Comment on above: Performed By: #### Loly WIGGINSLS #### Point of Care testing , NRBC% 0.0 /100{WBC} Normal 0-0.[address] [facility] Comment on above: Performed By: #### Loly WIGGINSLS #### Point of Care testing , Platelet mean volume (Bld) [Entitic vol] 7.5 fL Normal 6.3-10.[address] [facility] Comment on above: Performed By: #### Loly PRUETT #### Point of Care testing , Platelets (Bld) [#/Vol] 201 10*3/uL Normal 150-[address] [facility] Comment on above: Performed By: #### Loly PRUETT #### Point of Care testing , RBC (Bld) [#/Vol] 4.00 10*6/uL Normal 3.60-5.00 [facility] Comment on above: Performed By: #### Loly PRUETT #### Point of Care testing , WBC (Bld) [#/Vol] 7.6 10*3/uL Normal 3.8-11.6 [facility] Comment on above: Performed By: #### Loly WIGGINSLS #### Point of Care testing , Comprehensive Metabolic Pane usman 09-13-2022 Albumin [Mass/Vol] 4.6 g/dL Normal 3.5-5.7 [facility] Comment on above: Performed By: #### Loly WIGGINSLS #### Point of Care testing , Albumin/Globulin [Mass ratio] 1.7 {ratio} Normal [facility] Comment on above: Performed By: #### Loly WIGGINSLS #### Point of Care testing , ALP [Catalytic activity/Vol] 103 U/L Normal 34-[address] [facility] Comment on above: Performed By: #### G ROSALIELS #### Point of Care testing , ALT [Catalytic activity/Vol] 59 U/L High 7-[address] [facility] Comment on above: Performed By: #### G ROSALIELS #### Point of Care testing , Anion gap [Moles/Vol] Not performed Normal 6.0-15.[address] [facility] Comment on above: Performed By: #### G ROSALIELS #### Point of Care testing , AST [Catalytic activity/Vol] 80 U/L High 13-[address] [facility] Comment on above: Performed By: #### G ROSALIELS #### Point of Care testing , Bilirubin [Mass/Vol] 0.4 mg/dL Normal 0.3-1.0 [facility] Comment on above: Performed By: #### G ROSALIELS #### Point of Care testing , Calcium [Mass/Vol] 9.1 mg/dL Normal 8.6-10.3 [facility] Comment on above: Performed By: #### G ROSALIELS #### Point of Care testing , Chloride [Moles/Vol] 96 mmol/L Low 98-107 [facility] Comment on above: Performed By: #### G ROSALIELS #### Point of Care testing , CO2 [Moles/Vol] 29.3 mmol/L Normal 21.0-31.0 [facility] Comment on above: Performed By: #### G ROSALIELS #### Point of Care testing , Creatinine [Mass/Vol] 0.85 mg/dL Normal 0.60-1.[address] [facility] Comment on above: Performed By: #### G ROSALIELS #### Point of Care testing , Creatinine Clr Calc Pharmacy 104.[address] [facility] Comment on above: Result Comment: PERF ORMED BY: [facility] [address] [place] [address] PATHOLOGIST RELEASE MANAGER EZRA MCCLAIN M.D. Performed By: #### G ROSALIELS #### Point of Care testing , GFR/1.73 sq M.predicted MDRD (S/P/Bld) [Vol rate/Area] mL/min/{1.73_m2} Normal [facility] Comment on above: Performed By: #### G LFYNN #### Point of Care testing , Globulin (S) [Mass/Vol] 2.7 g/dL Normal [facility] Comment on above: Performed By: #### G ROSALIELS #### Point of Care testing , Glucose [Mass/Vol] 284 mg/dL High 74-109 [facility] Comment on above: Result Comment: [facility] Glucose Reference Range is dependent on time and content of last meal. Glucose of more than 200 mg/dL in a nonstressed, ambulatory subject supports the diagnosis of Diabetes Mellitus. ADA recommended reference range Performed By: #### G ROSALIELS #### Point of Care testing , Potassium Normal 3.5-5.[address] [facility] Comment on above: Result Comment: Spec imen hemolyzed, redraw requested Performed By: #### G ROSALIELS #### Point of Care testing , Protein [Mass/Vol] 7.3 g/dL Normal 6.4-8.9 [facility] Comment on above: Performed By: #### G FLYNN #### Point of Care testing , Sodium [Moles/Vol] 134 mmol/L Low 136-145 [facility] Comment on above: Performed By: #### G ROSALIELS #### Point of Care testing , Urea nitrogen [Mass/Vol] 37 mg/dL High 7-[address] [facility] Comment on above: Performed By: #### G FLYNN #### Point of Care testing , Creatinine [Mass/volume] in Serum or PlasmaOrdered By: Marilyn Sun on 09-13-2022 Creatinine [Mass/Vol] 0.85 mg/dL 0.60-1.[address] [facility] Eosinophils Auto (Bld) [#/Vo l]Ordered By: Marilyn Sun on 09-13-2022 Eosinophils (Bld) [#/Vol] 0.0 10*3/uL 0.0-0.[address] [facility] Eosinophils/100 WBC Auto (Bl d)Ordered By: Marilyn Sun on 09-13-2022 Eosinophils/100 WBC (Bld) 0.0 % . [facility] Erythrocyte distribution wid th Auto (RBC) [Ratio]Ordered By: Obartur Robertoomar on 09-13-2022 Erythrocyte distribution width (RBC) [Ratio] 18.2 % 11.9-15.[address] [facility] Globulin Calc (S) [Mass/Vol] Ordered By: Obsruthidacuca Robertoomar on 09-13-2022 Globulin (S) [Mass/Vol] 2.7 g/dL [facility] Glucose Poct Glucometerson 0 09-13-2022 Commemt1 Glu2: Cleaned Meter Normal [facility] Comment on above: Result Comment: PERF ORMED BY: [facility] [address] [place] [address] PATHOLOGIST RELEASE MANAGER EZRA MCCLAIN M.D. Performed By: #### G LULS #### Point of Care testing , Glucose [Mass/Vol] 375 mg/dL Normal [facility] Comment on above: Result Comment: [facility] Glucose Reference Range is dependent on time and content of last meal. Glucose of more than 200 mg/dL in a nonstressed, ambulatory subject supports the diagnosis of Diabetes Mellitus. Performed By: #### G LULS #### Point of Care testing , Glucose [Mass/Vol] 360 mg/dL Normal [facility] Comment on above: Result Comment: [facility] Glucose Reference Range is dependent on time and content of last meal. Glucose of more than 200 mg/dL in a nonstressed, ambulatory subject supports the diagnosis of Diabetes Mellitus. PERFORMED BY: [facility] [address] [place] [address] PATHOLOGIST RELEASE MANAGER EZRA MCCLAIN M.D. Performed By: #### C MP, CBC #### [address] Glucose [Mass/Vol] 348 mg/dL Normal [facility] Comment on above: Result Comment: [facility] Glucose Reference Range is dependent on time and content of last meal. Glucose of more than 200 mg/dL in a nonstressed, ambulatory subject supports the diagnosis of Diabetes Mellitus. PERFORMED BY: [facility] [address] [place] [place] [id number] PATHOLOGIST RELEASE MANAGER EZRA MCCLAIN M.D. Performed By: #### G FLYNN #### Point of Care testing , Commemt1 Glu2: Cleaned Meter Normal [facility] Comment on above: Result Comment: PERF ORMED BY: [facility] [address] [place] [address] PATHOLOGIST RELEASE MANAGER EZRA MCCLAIN M.D. Performed By: #### G LULS #### Point of Care testing , Glucose [Mass/Vol] 261 mg/dL Normal [facility] Comment on above: Result Comment: [place] Glucose Reference Range is dependent on time and content of last meal. Glucose of more than 200 mg/dL in a nonstressed, ambulatory subject supports the diagnosis of Diabetes Mellitus. Performed By: #### G LULS #### Point of Care testing , Glucose [Mass/volume] in Ser um or PlasmaOrdered By: Marilyn Sun on 09-13-2022 Glucose [Mass/Vol] 284 mg/dL 74-109 [facility] Comment on above: ADA recommended refe rence rangeRandom Glucose Reference Range is dependent on time and content of last meal. Glucose of more than 200 mg/dL in a nonstressed, ambulatory subject supports the diagnosis of Diabetes Mellitus. Hematocrit Auto (Bld) [Volum e fraction]Ordered By: Marilyn Sun on 09-13-2022 Hematocrit (Bld) [Volume fraction] 38.3 % 34.0-46.[address] [facility] Hemoglobin [Mass/volume] in BloodOrdered By: Marilyn Sun on 09-13-2022 Hemoglobin (Bld) [Mass/Vol] 12.7 g/dL 11.8-15.[address] [facility] Laboratory - Chemistry and C hemistry - challengeOrdered By: Marilyn Sun on 09-13-2022 GFR/1.73 sq M.predicted MDRD (S/P/Bld) [Vol rate/Area] mL/min/{1.73_m2} [facility] Leukocytes [#/volume] correc jeffrey for nucleated erythrocytes in Blood by Automated counOrdered By: Marilyn Mejiaomar on 09-13-2022 WBC corrected for nucl RBC Auto (Bld) [#/Vol] 7.6 10*3/uL 3.8-11.[address] [facility] Lymphocytes Auto (Bld) [#/Vo l]Ordered By: Obartur Mejiaomar on 09-13-2022 Lymphocytes (Bld) [#/Vol] 0.5 10*3/uL 1.00-4.[address] [facility] Lymphocytes/100 WBC Auto (Bl d)Ordered By: Obartur Mejiaomar on 09-13-2022 Lymphocytes/100 WBC (Bld) 6.4 % . [facility] MCH Auto (RBC) [Entitic mass ]Ordered By: Marilyn Mejiaomar on 09-13-2022 MCH (RBC) [Entitic mass] 31.7 pg 24.7-34.[address] [facility] MCHC Auto (RBC) [Mass/Vol]Or dered By: Obartur Mejiaomar on 09-13-2022 MCHC (RBC) [Mass/Vol] 33.1 g/dL 32.0-35.[address] [facility] MCV Auto (RBC) [Entitic vol] Ordered By: Marilyn Mejiaomar on 09-13-2022 MCV (RBC) [Entitic vol] 95.9 fL 80-[address] [facility] Monocytes Auto (Bld) [#/Vol] Ordered By: Marilyn Mejiaomar on 09-13-2022 Monocytes (Bld) [#/Vol] 0.3 10*3/uL 0.0-0.[address] [facility] Monocytes/100 WBC Auto (Bld) Ordered By: Obsruthidacuca Mejiaomar on 09-13-2022 Monocytes/100 WBC (Bld) 3.8 % . [facility] Neutrophils Auto (Bld) [#/Vo l]Ordered By: Obartur Mejiaomar on 09-13-2022 Neutrophils (Bld) [#/Vol] 6.8 10*3/uL 1.8-7.[address] [facility] Neutrophils/100 WBC Auto (Bl d)Ordered By: Marilyn Sun on 09-13-2022 Neutrophils/100 WBC (Bld) 89.6 % . [facility] No Panel InformationOrdered By: José Sanchez on 09-13-2022 Bedside Glucose Comment Glu2: cleaned meter [facility] No Panel InformationOrdered By: Marilyn Sun on 09-13-2022 Pharmacy Creatinine Clearance (Chem 104.[address] [facility] Nucleated erythrocytes [Pres ence] in Blood by Automated countOrdered By: Marilyn Sun on 09-13-2022 Nucleated RBC Auto Ql (Bld) 0.0 /100{WBC} 0-0.[address] [facility] Platelet mean volume Auto (B ld) [Entitic vol]Ordered By: Marilyn Sun on 09-13-2022 Platelet mean volume (Bld) [Entitic vol] 7.5 fL 6.3-10.[address] [facility] Platelets Auto (Bld) [#/Vol] Ordered By: Marilyn Sun on 09-13-2022 Platelets (Bld) [#/Vol] 201 10*3/uL 150-[address] [facility] Potassium [Moles/volume] in Serum or PlasmaOrdered By: Marilyn Sun on 09-13-2022 Potassium [Moles/Vol] 4.5 mmol/L 3.5-5.[address] [facility] Protein [Mass/volume] in Ser um or PlasmaOrdered By: Marilyn Sun on 09-13-2022 Protein [Mass/Vol] 7.3 g/dL 6.4-8.9 [facility] RBC Auto (Bld) [#/Vol]Ordere d By: Marilyn Mejiaomar on 09-13-2022 RBC (Bld) [#/Vol] 4.00 10*6/uL 3.60-5.00 [facility] Redraw Potassiumon Potassium [Moles/Vol] 4.5 mmol/L Normal 3.5-5.[address] [facility] Comment on above: Order Comment: FIRST SPECMEN HEMOLYZED Result Comment: PERF ORMED BY: [place] [address] PATHOLOGIST RELEASE MANAGER ZERA MCCLAIN M.D. Performed By: #### G LUGI #### Point of Care testing , Serum or plasma albumin/glob ulin mass ratioOrdered By: Marilyn Mejiaomar on 09-13-2022 Albumin/Globulin [Mass ratio] 1.7 {ratio} [facility] Serum or plasma anion gap de terminationOrdered By: Obsruthidacuca Daromar on 09-13-2022 Anion gap [Moles/Vol] TNP [facility] Comment on above: Test not performed Sodium [Moles/volume] in Ser um or PlasmaOrdered By: Obsruthidacuca Daromar on 09-13-2022 Sodium [Moles/Vol] 134 mmol/L 136-145 [facility] Urea nitrogen [Mass/volume] in Serum or PlasmaOrdered By: Obsruthidacuca Daromar on 09-13-2022 Urea nitrogen [Mass/Vol] 37 mg/dL 7-[address] [facility] WBC Auto (Bld) [#/Vol]Ordere d By: Obsruthidacuca Mejiaomar on 09-13-2022 WBC (Bld) [#/Vol] 7.6 10*3/uL 3.8-11.6 [facility] Complete Blood Count Auto Di ffon 09-12-2022 Basophils (Bld) [#/Vol] 0.0 10*3/uL Normal 0.0-0.[address] [facility] Comment on above: Result Comment: PERF ORMED BY: [place] [address] PATHOLOGIST RELEASE MANAGER EZRA MCCLAIN M.D. Performed By: #### H S TROP #### [facility] [address] [place] [address] [place] Basophils/100 WBC (Bld) 0.2 % Normal . [facility] Comment on above: Performed By: #### H S TROP #### [facility] [address] [place] [address] [place] Eosinophils (Bld) [#/Vol] 0.0 10*3/uL Normal 0.0-0.[address] [facility] Comment on above: Performed By: #### H S TROP #### [address] Eosinophils/100 WBC (Bld) 0.0 % Normal . [facility] Comment on above: Performed By: #### H S TROP #### [address] Erythrocyte distribution width (RBC) [Ratio] 17.5 % High 11.9-15.[address] [facility] Comment on above: Performed By: #### H S TROP #### [address] Hematocrit (Bld) [Volume fraction] 36.3 % Normal 34.0-46.[address] [facility] Comment on above: Performed By: #### H S TROP #### [address] Hemoglobin (Bld) [Mass/Vol] 12.0 g/dL Normal 11.8-15.[address] [facility] Comment on above: Performed By: #### H S TROP #### [address] Lymphocytes (Bld) [#/Vol] 0.3 10*3/uL Low 1.00-4.[address] [facility] Comment on above: Performed By: #### H S TROP #### [address] Lymphocytes/100 WBC (Bld) 4.1 % Normal . [facility] Comment on above: Performed By: #### H S TROP #### [address] MCH (RBC) [Entitic mass] 31.7 pg Normal 24.7-34.[address] [facility] Comment on above: Performed By: #### H S TROP #### [address] MCV (RBC) [Entitic vol] 95.9 fL Normal 80-[address] [facility] Comment on above: Performed By: #### H S TROP #### [facility] [address] Mean Corpuscular HGB Conc 33.1 g/dL Normal 32.0-35.[address] [facility] Comment on above: Performed By: #### H S TROP #### [facility] [address] [place] [address] [place] Monocytes (Bld) [#/Vol] 0.3 10*3/uL Normal 0.0-0.[address] [facility] Comment on above: Performed By: #### H S TROP #### [place] [address] [place] Monocytes/100 WBC (Bld) 3.8 % Normal . [facility] Comment on above: Performed By: #### H S TROP #### [address] Neutrophils (Bld) [#/Vol] 6.3 10*3/uL Normal 1.8-7.[address] [facility] Comment on above: Performed By: #### H S TROP #### [place] [address] [place] Neutrophils/100 WBC (Bld) 91.9 % Normal . [facility] Comment on above: Performed By: #### H S TROP #### [address] NRBC% 0.0 /100{WBC} Normal 0-0.[address] [facility] Comment on above: Performed By: #### H S TROP #### [place] [address] [place] Platelet mean volume (Bld) [Entitic vol] 7.5 fL Normal 6.3-10.[address] [facility] Comment on above: Performed By: #### H S TROP #### [place] [address] [place] Platelets (Bld) [#/Vol] 177 10*3/uL Normal 150-[address] [facility] Comment on above: Performed By: #### H S TROP #### [facility] [address] [place] [address] RBC (Bld) [#/Vol] 3.79 10*6/uL Normal 3.60-5.00 [facility] Comment on above: Performed By: #### H S TROP #### [address] WBC (Bld) [#/Vol] 6.8 10*3/uL Normal 3.8-11.6 [facility] Comment on above: Performed By: #### H S TROP #### [address] Comprehensive Metabolic Pane usman 09-12-2022 Albumin [Mass/Vol] 4.1 g/dL Normal 3.5-5.7 [facility] Comment on above: Performed By: #### H S TROP #### [address] Albumin/Globulin [Mass ratio] 1.6 {ratio} Normal [facility] Comment on above: Performed By: #### H S TROP #### [address] ALP [Catalytic activity/Vol] 101 U/L Normal 34-[address] [facility] Comment on above: Performed By: #### H S TROP #### [address] ALT [Catalytic activity/Vol] 45 U/L Normal 7-[address] [facility] Comment on above: Performed By: #### H S TROP #### [address] Anion gap [Moles/Vol] 12.8 mmol/L Normal 6.0-15.[address] [facility] Comment on above: Performed By: #### H S TROP #### [address] AST [Catalytic activity/Vol] 55 U/L High 13-[address] [facility] Comment on above: Performed By: #### H S TROP #### [place] [address] [place] Bilirubin [Mass/Vol] 0.4 mg/dL Normal 0.3-1.0 [facility] Comment on above: Performed By: #### H S TROP #### [facility] [address] Calcium [Mass/Vol] 8.8 mg/dL Normal 8.6-10.3 [facility] Comment on above: Performed By: #### H S TROP #### [facility] [address] Chloride [Moles/Vol] 96 mmol/L Low 98-107 [facility] Comment on above: Performed By: #### H S TROP #### [address] CO2 [Moles/Vol] 28.8 mmol/L Normal 21.0-31.0 [facility] Comment on above: Performed By: #### H S TROP #### [facility] [address] [place] [address] Creatinine [Mass/Vol] 0.90 mg/dL Normal 0.60-1.[address] [facility] Comment on above: Performed By: #### H S TROP #### [facility] [address] [place] [address] Creatinine Clr Calc Pharmacy 100.98 [facility] Comment on above: Result Comment: PERF ORMED BY: [place] [address] PATHOLOGIST RELEASE MANAGER EZRA MCCLAIN M.D. Performed By: #### H S TROP #### [facility] [address] [place] [address] GFR/1.73 sq M.predicted MDRD (S/P/Bld) [Vol rate/Area] mL/min/{1.73_m2} [facility] Comment on above: Performed By: #### H S TROP #### [facility] [address] [place] [address] Globulin (S) [Mass/Vol] 2.5 g/dL [facility] Comment on above: Performed By: #### H S TROP #### [facility] [address] [place] [address] [place] Glucose [Mass/Vol] 289 mg/dL High 74-109 [facility] Comment on above: Result Comment: [place] Glucose Reference Range is dependent on time and content of last meal. Glucose of more than 200 mg/dL in a nonstressed, ambulatory subject supports the diagnosis of Diabetes Mellitus. ADA recommended reference range Performed By: #### H S TROP #### [facility] [address] Potassium [Moles/Vol] 4.6 mmol/L Normal 3.5-5.[address] [facility] Comment on above: Performed By: #### H S TROP #### [address] Protein [Mass/Vol] 6.6 g/dL Normal 6.4-8.9 [facility] Comment on above: Performed By: #### H S TROP #### [address] Sodium [Moles/Vol] 133 mmol/L Low 136-145 [facility] Comment on above: Performed By: #### H S TROP #### [address] Urea nitrogen [Mass/Vol] 29 mg/dL High 7-[address] [facility] Comment on above: Performed By: #### H S TROP #### [place] [address] [place] Glucose Poct Glucometerson 0 09-12-2022 Commemt1 Glu2: Cleaned Meter Normal [facility] Comment on above: Result Comment: PERF ORMED BY: [place] [address] PATHOLOGIST RELEASE MANAGER EZRA MCCLAIN M.D. Performed By: #### C MP, CBC #### [facility] [address] [place] [address] [place] Glucose [Mass/Vol] 203 mg/dL Normal [facility] Comment on above: Result Comment: [place] om Glucose Reference Range is dependent on time and content of last meal. Glucose of more than 200 mg/dL in a nonstressed, ambulatory subject supports the diagnosis of Diabetes Mellitus. Performed By: #### C MP, CBC #### [address] Commemt1 Glu2: Cleaned Meter [facility] Comment on above: Result Comment: PERF ORMED BY: [place] [address] PATHOLOGIST RELEASE MANAGER EZRA MCCLAIN M.D. Performed By: #### G LULS #### Point of Care testing , Glucose [Mass/Vol] 331 mg/dL Normal [facility] Comment on above: Result Comment: [place] om Glucose Reference Range is dependent on time and content of last meal. Glucose of more than 200 mg/dL in a nonstressed, ambulatory subject supports the diagnosis of Diabetes Mellitus. Performed By: #### G LULS #### Point of Care testing , Commemt1 Glu2: Cleaned Meter [facility] Comment on above: Result Comment: PERF ORMED BY: [place] [address] PATHOLOGIST RELEASE MANAGER EZRA MCCLAIN M.D. Performed By: #### C MP, CBC #### [address] Glucose [Mass/Vol] 282 mg/dL Normal [facility] Comment on above: Result Comment: [place] om Glucose Reference Range is dependent on time and content of last meal. Glucose of more than 200 mg/dL in a nonstressed, ambulatory subject supports the diagnosis of Diabetes Mellitus. Performed By: #### C MP, CBC #### [facility] [address] [place] [address] Commemt1 Glu2: Cleaned Meter [facility] Comment on above: Result Comment: PERF ORMED BY: [place] [address] PATHOLOGIST RELEASE MANAGER EZRA MCCLAIN M.D. Performed By: #### C MP, CBC #### [address] Glucose [Mass/Vol] 219 mg/dL Normal [facility] Comment on above: Result Comment: [facility] Glucose Reference Range is dependent on time and content of last meal. Glucose of more than 200 mg/dL in a nonstressed, ambulatory subject supports the diagnosis of Diabetes Mellitus. Performed By: #### C MP, CBC #### [address] Complete Blood Count Auto Di ffon 09-11-2022 Basophils (Bld) [#/Vol] 0.1 10*3/uL Normal 0.0-0.[address] [facility] Comment on above: Result Comment: PERF ORMED BY: [place] [address] PATHOLOGIST RELEASE MANAGER EZRA MCCLAIN M.D. Performed By: #### C MP, CBC #### [address] Basophils/100 WBC (Bld) 1.1 % Normal . [facility] Comment on above: Performed By: #### C MP, CBC #### [address] Eosinophils (Bld) [#/Vol] 0.0 10*3/uL Normal 0.0-0.[address] [facility] Comment on above: Performed By: #### C MP, CBC #### [address] Eosinophils/100 WBC (Bld) 0.0 % Normal . [facility] Comment on above: Performed By: #### C MP, CBC #### [address] Erythrocyte distribution width (RBC) [Ratio] 17.5 % High 11.9-15.[address] [facility] Comment on above: Performed By: #### C MP, CBC #### [address] Hematocrit (Bld) [Volume fraction] 38.9 % Normal 34.0-46.[address] [facility] Comment on above: Performed By: #### C MP, CBC #### [facility] [address] Hemoglobin (Bld) [Mass/Vol] 12.7 g/dL Normal 11.8-15.[address] [facility] Comment on above: Performed By: #### C MP, CBC #### [facility] [address] Lymphocytes (Bld) [#/Vol] 0.3 10*3/uL Low 1.00-4.[address] [facility] Comment on above: Performed By: #### C MP, CBC #### [facility] [address] Lymphocytes/100 WBC (Bld) 4.7 % Normal . [facility] Comment on above: Performed By: #### C MP, CBC #### [facility] [address] MCH (RBC) [Entitic mass] 31.7 pg Normal 24.7-34.[address] [facility] Comment on above: Performed By: #### C MP, CBC #### [facility] [address] MCV (RBC) [Entitic vol] 96.7 fL Normal 80-[address] [facility] Comment on above: Performed By: #### C MP, CBC #### [facility] [address] Mean Corpuscular HGB Conc 32.8 g/dL Normal 32.0-35.[address] [facility] Comment on above: Performed By: #### C MP, CBC #### [facility] [address] [place] [address] [place] Monocytes (Bld) [#/Vol] 0.1 10*3/uL Normal 0.0-0.[address] [facility] Comment on above: Performed By: #### C MP, CBC #### [facility] [address] [place] [address] [place] Monocytes/100 WBC (Bld) 0.9 % Normal . [facility] Comment on above: Performed By: #### C MP, CBC #### [facility] [address] [place] [address] [place] Neutrophils (Bld) [#/Vol] 6.0 10*3/uL Normal 1.8-7.[address] [facility] Comment on above: Performed By: #### C MP, CBC #### [facility] [address] [place] [address] [place] Neutrophils/100 WBC (Bld) 93.3 % Normal . [facility] Comment on above: Performed By: #### C MP, CBC #### [facility] [address] NRBC% 0.2 /100{WBC} Normal 0-0.[address] [facility] Comment on above: Performed By: #### C MP, CBC #### [facility] [address] Platelet mean volume (Bld) [Entitic vol] 7.5 fL Normal 6.3-10.[address] [facility] Comment on above: Performed By: #### C MP, CBC #### [facility] [address] [place] [address] [place] Platelets (Bld) [#/Vol] 185 10*3/uL Normal 150-[address] [facility] Comment on above: Performed By: #### C MP, CBC #### [facility] [address] [place] [address] [place] RBC (Bld) [#/Vol] 4.02 10*6/uL Normal 3.60-5.00 [facility] Comment on above: Performed By: #### C MP, CBC #### [facility] [address] [place] [address] [place] WBC (Bld) [#/Vol] 6.4 10*3/uL Normal 3.8-11.6 [facility] Comment on above: Performed By: #### C MP, CBC #### [facility] [address] Comprehensive Metabolic Pane usman 09-11-2022 Albumin [Mass/Vol] 4.5 g/dL Normal 3.5-5.7 [facility] Comment on above: Performed By: #### C MP, CBC #### [facility] [address] Albumin/Globulin [Mass ratio] 1.5 {ratio} Normal [facility] Comment on above: Performed By: #### C MP, CBC #### [facility] [address] ALP [Catalytic activity/Vol] 130 U/L High 34-[address] [facility] Comment on above: Performed By: #### C MP, CBC #### [facility] [address] ALT [Catalytic activity/Vol] 59 U/L High 7-[address] [facility] Comment on above: Performed By: #### C MP, CBC #### [facility] [address] Anion gap [Moles/Vol] Not performed Normal 6.0-15.[address] [facility] Comment on above: Performed By: #### C MP, CBC #### [facility] [address] AST [Catalytic activity/Vol] 90 U/L High 13-[address] [facility] Comment on above: Performed By: #### C MP, CBC #### [facility] [address] Bilirubin [Mass/Vol] 0.5 mg/dL Normal 0.3-1.0 [facility] Comment on above: Performed By: #### C MP, CBC #### [facility] [address] Calcium [Mass/Vol] 9.3 mg/dL Normal 8.6-10.3 [facility] Comment on above: Performed By: #### C MP, CBC #### [facility] [address] Chloride [Moles/Vol] 94 mmol/L Low 98-107 [facility] Comment on above: Performed By: #### C MP, CBC #### [facility] [address] CO2 [Moles/Vol] 28.7 mmol/L Normal 21.0-31.0 [facility] Comment on above: Performed By: #### C MP, CBC #### [facility] [address] Creatinine [Mass/Vol] 0.87 mg/dL Normal 0.60-1.[address] [facility] Comment on above: Performed By: #### C MP, CBC #### [facility] [address] Creatinine Clr Calc Pharmacy 104.[address] [facility] Comment on above: Result Comment: PERF ORMED BY: [place] [address] PATHOLOGIST RELEASE MANAGER EZRA MCCLAIN M.D. Performed By: #### C MP, CBC #### [address] GFR/1.73 sq M.predicted MDRD (S/P/Bld) [Vol rate/Area] mL/min/{1.73_m2} Normal [facility] Comment on above: Performed By: #### C MP, CBC #### [address] Globulin (S) [Mass/Vol] 3.0 g/dL Normal [facility] Comment on above: Performed By: #### C MP, CBC #### [address] Glucose [Mass/Vol] 222 mg/dL Significant change up 74-[address] [facility] Comment on above: Result Comment: [place] Glucose Reference Range is dependent on time and content of last meal. Glucose of more than 200 mg/dL in a nonstressed, ambulatory subject supports the diagnosis of Diabetes Mellitus. ADA recommended reference range Performed By: #### C MP, CBC #### [address] Potassium Normal 3.5-5.[address] [facility] Comment on above: Result Comment: Spec imen hemolyzed, redraw requested Performed By: #### C MP, CBC #### [facility] [address] Protein [Mass/Vol] 7.5 g/dL Normal 6.4-8.9 [facility] Comment on above: Performed By: #### C MP, CBC #### [facility] [address] Sodium [Moles/Vol] 135 mmol/L Low 136-145 [facility] Comment on above: Performed By: #### C MP, CBC #### [facility] [address] Urea nitrogen [Mass/Vol] 28 mg/dL High 7-[address] [facility] Comment on above: Performed By: #### C MP, CBC #### [address] [facility] echo transthoracicon [facility] echo transthoracic [facility] Main [place] [address] [place] [address] Echocardiogram Signed Patient: Carmen Bledsoe MR#: [id number] 9 : 1960 Acct:[id number] Age/Sex: 61 / F ADM Date: 09/10/22 Loc: Room: [address] [place] [address] Type: ADM IN Attending Dr: Marilyn Sun MD Ordering Provider: Marilyn Sun MD Date of Service: 09/10/2204/25/1327 ECH/ECH echo [...] 23.8 cm Transcribed By: ROWAN Performed At: 09/11/22726 Signed By: Maikol Siddiqui MD 09/11/22 1155 [facility] Glucose Poct Glucometerson 0 09-11-2022 Commemt1 Glu2: Cleaned Meter [facility] Comment on above: Result Comment: PERF ORMED BY: [place] [address] PATHOLOGIST RELEASE MANAGER EZRA MCCLAIN M.D. Performed By: #### C MP, CBC #### [facility] [address] Glucose [Mass/Vol] 236 mg/dL Normal [facility] Comment on above: Result Comment: [place] Glucose Reference Range is dependent on time and content of last meal. Glucose of more than 200 mg/dL in a nonstressed, ambulatory subject supports the diagnosis of Diabetes Mellitus. Performed By: #### C MP, CBC #### [facility] [address] [place] [address] [place] Glucose [Mass/Vol] 289 mg/dL Normal [facility] Comment on above: Result Comment: [place] Glucose Reference Range is dependent on time and content of last meal. Glucose of more than 200 mg/dL in a nonstressed, ambulatory subject supports the diagnosis of Diabetes Mellitus. PERFORMED BY: [facility] [address] [place] [address] PATHOLOGIST RELEASE MANAGER EZRA MCCLAIN M.D. Performed By: #### H S TROP #### [place] [address] [place] Glucose [Mass/Vol] 297 mg/dL Normal [facility] Comment on above: Result Comment: [place] Glucose Reference Range is dependent on time and content of last meal. Glucose of more than 200 mg/dL in a nonstressed, ambulatory subject supports the diagnosis of Diabetes Mellitus. PERFORMED BY: [place] [address] PATHOLOGIST RELEASE MANAGER EZRA MCCLAIN M.D. Performed By: #### C MP, CBC #### [place] [address] [place] Glucose [Mass/Vol] 226 mg/dL Normal [facility] Comment on above: Result Comment: [place] Glucose Reference Range is dependent on time and content of last meal. Glucose of more than 200 mg/dL in a nonstressed, ambulatory subject supports the diagnosis of Diabetes Mellitus. PERFORMED BY: [place] [address] PATHOLOGIST RELEASE MANAGER EZRA MCCLAIN M.D. Performed By: #### G LULS #### Point of Care testing , Redraw Potassiumon 3 Potassium [Moles/Vol] 4.5 mmol/L Normal 3.5-5.[address] [facility] Comment on above: Result Comment: PERF ORMED BY: [place] [address] PATHOLOGIST RELEASE MANAGER EZRA MCCLAIN M.D. Performed By: #### H S TROP #### [place] [address] [place] Troponin I High Sensitivityo n 09-11-2022 Troponin I High Sensitivity 5.3 pg/mL Normal 0.0-15.[address] [facility] Comment on above: Result Comment: PERF ORMED BY: [place] [address] PATHOLOGIST RELEASE MANAGER EZRA MCCLAIN M.D. Performed By: #### C MP, CBC #### [facility] [address] A1C with Estimated Average G radhan 09-10-2022 Glucose [Mass/Vol] 128 mg/dL Normal [facility] Comment on above: Order Comment: Comme nt add on Result Comment: PERF ORMED BY: [place] [address] PATHOLOGIST RELEASE MANAGER EZRA MCCLAIN M.D. Performed By: #### C MP, CBC #### [facility] [address] HbA1c (Bld) [Mass fraction] 6.1 % High 4.3-5.[address] [facility] Comment on above: Order Comment: Comme nt add on Result Comment: Incr eased risk for diabetes: 5.7 - 6.4 diabetes: >6.4 glycemic control for adults with diabetes: <7.0 Performed By: #### C MP, CBC #### [facility] [address] [place] [address] Activated partial thrombopla stin time (aPTT) in platelet poor plasma by coagulation aOrdered By: Joo Ramos on 09-10-2022 aPTT Coag (PPP) [Time] 31.2 s 25.1-36.[address] [facility] Alanine aminotransferase [En zymatic activity/volume] in Serum or PlasmaOrdered By: Joo Ramos on 09-10-2022 ALT [Catalytic activity/Vol] 50 U/L 7-[address] [facility] Albumin [Mass/volume] in Ser um or Plasma by Bromocresol green (BCG) dye binding methoOrdered By: Joo Ramos on 09-10-2022 Albumin BCG dye [Mass/Vol] 4.4 g/dL 3.5-5.[address] [facility] Alkaline phosphatase [Enzyma tic activity/volume] in Serum or PlasmaOrdered By: Joo Ramos on 09-10-2022 ALP [Catalytic activity/Vol] 121 U/L 34-[address] [facility] Aspartate aminotransferase [ Enzymatic activity/volume] in Serum or PlasmaOrdered By: Joo Ramos on 09-10-2022 AST [Catalytic activity/Vol] 71 U/L 13-[address] [facility] B-Type Natriuretic Peptideon 09-10-2022 Natriuretic peptide B (Bld) [Mass/Vol] 6.0 pg/mL Normal 5-[address] [facility] Comment on above: Result Comment: PERF ORMED BY: [place] [address] PATHOLOGIST RELEASE MANAGER EZRA MCCLAIN M.D. Performed By: #### C MP, CBC #### [facility] [address] Basic Metabolic Panelon 09-01 Anion gap [Moles/Vol] 13.7 mmol/L Normal 6.0-15.[address] [facility] Comment on above: Performed By: #### C MP, CBC #### [facility] [address] Calcium [Mass/Vol] 9.6 mg/dL Normal 8.6-10.3 [facility] Comment on above: Performed By: #### C MP, CBC #### [facility] [address] [place] [address] [place] Chloride [Moles/Vol] 99 mmol/L Normal 98-107 [facility] Comment on above: Performed By: #### C MP, CBC #### [facility] [address] CO2 [Moles/Vol] 29.0 mmol/L Normal 21.0-31.0 [facility] Comment on above: Performed By: #### C MP, CBC #### [facility] [address] [place] [address] [place] Creatinine [Mass/Vol] 0.83 mg/dL Normal 0.60-1.[address] [facility] Comment on above: Performed By: #### C MP, CBC #### [facility] [address] [place] [address] [place] Creatinine Clr Calc Pharmacy 109.[address] [facility] Comment on above: Result Comment: PERF ORMED BY: [facility] [address] [place] [address] PATHOLOGIST RELEASE MANAGER EZRA MCCLAIN M.D. Performed By: #### C MP, CBC #### [place] [address] [place] GFR/1.73 sq M.predicted MDRD (S/P/Bld) [Vol rate/Area] mL/min/{1.73_m2} Normal [facility] Comment on above: Performed By: #### C MP, CBC #### [address] Glucose [Mass/Vol] 91 mg/dL Normal 74-109 [facility] Comment on above: Result Comment: [facility] Glucose Reference Range is dependent on time and content of last meal. Glucose of more than 200 mg/dL in a nonstressed, ambulatory subject supports the diagnosis of Diabetes Mellitus. ADA recommended reference range Performed By: #### C MP, CBC #### [address] Potassium [Moles/Vol] 4.7 mmol/L Normal 3.5-5.[address] [facility] Comment on above: Performed By: #### C MP, CBC #### [address] Sodium [Moles/Vol] 137 mmol/L Normal 136-145 [facility] Comment on above: Performed By: #### C MP, CBC #### [address] Urea nitrogen [Mass/Vol] 24 mg/dL Normal 7-[address] [facility] Comment on above: Performed By: #### C MP, CBC #### [place] [address] [place] Basophils Auto (Bld) [#/Vol] Ordered By: Joo Ramos on 09-10-2022 Basophils (Bld) [#/Vol] 0.1 10*3/uL 0.0-0.[address] [facility] Basophils/100 WBC Auto (Bld) Ordered By: Joo Ramos on 09-10-2022 Basophils/100 WBC (Bld) 1.1 % . [facility] Bilirubin Test strip Ql (U)O rdered By: Joo Ramos on 09-10-2022 Bilirubin Ql (U) Negative Negative [facility] Bilirubin.direct [Mass/volum e] in Serum or PlasmaOrdered By: Joo Ramos on 09-10-2022 Bilirubin.direct [Mass/Vol] 0.10 mg/dL 0.03-0.[address] [facility] Bilirubin.total [Mass/volume ] in Serum or PlasmaOrdered By: Joo Ramos on 09-10-2022 Bilirubin [Mass/Vol] 0.4 mg/dL 0.3-1.0 [facility] BioFire Not Detectedon 09-10 BioFire Not Detected Not detected Normal Not Detecte [facility] Comment on above: Result Comment: This is a duplicate RP2.1 COVID (PCR) result to be used for statistical tracking purpose only. PERFORMED BY: [place] [address] PATHOLOGIST RELEASE MANAGER ZERA MCCLAIN M.D. Performed By: #### C MP, CBC #### [address] COVID-19 Detected/Not Detect edOrdered By: Marilyn Sun on 09-10-2022 SARS-CoV-2 (COVID-19) RNA TERESO+non-probe Ql (Nph) Not detected Not Detecte [facility] Comment on above: This is a duplicate RP2.1 COVID (PCR) result to be used for statistical tracking purpose only. Calcium [Mass/volume] in Ser um or PlasmaOrdered By: Joo Ramos on 09-10-2022 Calcium [Mass/Vol] 9.6 mg/dL 8.6-10.3 [facility] Carbon dioxide, total [Moles /volume] in Serum or PlasmaOrdered By: Joo Ramos on 09-10-2022 CO2 [Moles/Vol] 29.0 mmol/L 21.0-31.0 [facility] Chloride [Moles/volume] in S caitlyn or PlasmaOrdered By: Joo Ramos on 09-10-2022 Chloride [Moles/Vol] 99 mmol/L 98-107 [facility] Cholesterol [Mass/volume] in Serum or PlasmaOrdered By: Marilyn Sun on 09-10-2022 Cholesterol [Mass/Vol] 169 mg/dL 140-[address] [facility] Comment on above: Chol less than 200 m g/dl low riskChol 201-239 mg/dl borderline riskChol 240 mg/dl and greater high risk Cholesterol in LDL Calc [Mas s/Vol]Ordered By: Marilyn Sun on 09-10-2022 Cholesterol in LDL [Mass/Vol] 62 mg/dL 0-[address] [facility] Comment on above: LDL ATP III CLASSIFI CATIONLDL less than 100 mg/dL OptimalLDL 100-129 mg/dL Near or above optimalLDL 130-159 mg/dL Borderline highLDL 160-189 mg/dL HighLDL greater than 189 mg/dL Very high Cholesterol in VLDL Calc [Ma ss/Vol]Ordered By: Marilyn Sun on 09-10-2022 Cholesterol in VLDL [Mass/Vol] 34 mg/dL [facility] Color Auto (U)Ordered By: Tod Ramos on 09-10-2022 Color (U) Yellow Yellow [facility] Complete Blood Count Auto Di ffon 09-10-2022 Basophils (Bld) [#/Vol] 0.1 10*3/uL Normal 0.0-0.[address] [facility] Comment on above: Result Comment: PERF ORMED BY: [place] [address] PATHOLOGIST RELEASE MANAGER EZRA MCCLAIN M.D. Performed By: #### C MP, CBC #### [facility] [address] [place] [address] Basophils/100 WBC (Bld) 1.1 % Normal . [facility] Comment on above: Performed By: #### C MP, CBC #### [facility] [address] [place] [address] [place] Eosinophils (Bld) [#/Vol] 0.1 10*3/uL Normal 0.0-0.[address] [facility] Comment on above: Performed By: #### C MP, CBC #### [facility] [address] Eosinophils/100 WBC (Bld) 1.6 % Normal . [facility] Comment on above: Performed By: #### C MP, CBC #### [address] Erythrocyte distribution width (RBC) [Ratio] 17.5 % High 11.9-15.[address] [facility] Comment on above: Performed By: #### C MP, CBC #### [address] Hematocrit (Bld) [Volume fraction] 37.7 % Normal 34.0-46.[address] [facility] Comment on above: Performed By: #### C MP, CBC #### [address] Hemoglobin (Bld) [Mass/Vol] 12.5 g/dL Normal 11.8-15.[address] [facility] Comment on above: Performed By: #### C MP, CBC #### [address] Lymphocytes (Bld) [#/Vol] 1.1 10*3/uL Normal 1.00-4.[address] [facility] Comment on above: Performed By: #### C MP, CBC #### [address] Lymphocytes/100 WBC (Bld) 21.5 % Normal . [facility] Comment on above: Performed By: #### C MP, CBC #### [address] MCH (RBC) [Entitic mass] 31.8 pg Normal 24.7-34.[address] [facility] Comment on above: Performed By: #### C MP, CBC #### [address] MCV (RBC) [Entitic vol] 96.1 fL Normal 80-[address] [facility] Comment on above: Performed By: #### C MP, CBC #### [address] Mean Corpuscular HGB Conc 33.1 g/dL Normal 32.0-35.[address] [facility] Comment on above: Performed By: #### C MP, CBC #### [facility] [address] [place] [address] [place] Monocytes (Bld) [#/Vol] 0.3 10*3/uL Normal 0.0-0.[address] [facility] Comment on above: Performed By: #### C MP, CBC #### [facility] [address] [place] [address] [place] Monocytes/100 WBC (Bld) 18.14 % Normal 0.00-20.[address] [facility] Comment on above: Performed By: #### C MP, CBC #### [place] [address] [place] Monocytes/100 WBC (Bld) 5.1 % Normal . [facility] Comment on above: Performed By: #### C MP, CBC #### [facility] [address] [place] [address] [place] Neutrophils (Bld) [#/Vol] 3.7 10*3/uL Normal 1.8-7.[address] [facility] Comment on above: Performed By: #### C MP, CBC #### [place] [address] [place] Neutrophils/100 WBC (Bld) 70.7 % Normal . [facility] Comment on above: Performed By: #### C MP, CBC #### [facility] [address] [place] [address] [place] NRBC% 0.3 /100{WBC} Normal 0-0.[address] [facility] Comment on above: Performed By: #### C MP, CBC #### [place] [address] [place] Platelet mean volume (Bld) [Entitic vol] 7.2 fL Normal 6.3-10.[address] [facility] Comment on above: Performed By: #### C MP, CBC #### [place] [address] [place] Platelets (Bld) [#/Vol] 180 10*3/uL Normal 150-[address] [facility] Comment on above: Performed By: #### C MP, CBC #### [facility] [address] [place] [address] RBC (Bld) [#/Vol] 3.92 10*6/uL Normal 3.60-5.00 [facility] Comment on above: Performed By: #### C MP, CBC #### [facility] [address] [place] [address] WBC (Bld) [#/Vol] 5.2 10*3/uL Normal 3.8-11.6 [facility] Comment on above: Performed By: #### C MP, CBC #### [address] Creatine Kinaseon 09-10-2022 CK [Catalytic activity/Vol] 39 U/L Normal 30-[address] [facility] Comment on above: Performed By: #### C MP, CBC #### [address] Creatine kinase [Enzymatic a ctivity/volume] in Serum or PlasmaOrdered By: Joo Ramos on 09-10-2022 CK [Catalytic activity/Vol] 39 U/L 30-[address] [facility] Creatinine [Mass/volume] in Serum or PlasmaOrdered By: Joo Ramos on 09-10-2022 Creatinine [Mass/Vol] 0.83 mg/dL 0.60-1.[address] [facility] ECG 12 lead ECGon 09-10-2022 ECG 12 lead ECG [facility] [place] [address] [place] [address] Electrocardiograph Report Signed Patient: Carmen Bledsoe MR#: [id number] 9 : 1960 Acct:[id number] Age/Sex: 61 / F ADM Date: 09/10/22 Loc: Room: [address] [place] [address] Type: ADM IN Attending Dr: Marilyn Sun [...] By Maikol Siddiqui MD 0 09/11/22 0653 [facility] ECG 12 lead ECG [place] [address] Electrocardiograph Report Signed Patient: Carmen Bledsoe MR#: [id number] 9 : 1960 Acct:[id number] Age/Sex: 61 / F ADM Date: 09/10/22 Loc: Room: [address] [place] [address] Type: ADM IN Attending Dr: Marilyn Sun [...] ECGs available Confirmed by Joo Ramos DO ([id number]) on 09/10/2022 6:56:24 PM Referred By: Electronically Signed By:Joo Ramos DO Transcribed By: MANUEL Signed By Joo Ramos DO 3 1856 [facility] Eosinophils Auto (Bld) [#/Vo l]Ordered By: Joo Ramos on 09-10-2022 Eosinophils (Bld) [#/Vol] 0.1 10*3/uL 0.0-0.[address] [facility] Eosinophils/100 WBC Auto (Bl d)Ordered By: Joo Ramos on 09-10-2022 Eosinophils/100 WBC (Bld) 1.6 % . [facility] Erythrocyte distribution wid th Auto (RBC) [Ratio]Ordered By: Joo Ramos on 09-10-2022 Erythrocyte distribution width (RBC) [Ratio] 17.5 % 11.9-15.[address] [facility] Globulin Calc (S) [Mass/Vol] Ordered By: Joo Ramos on 09-10-2022 Globulin (S) [Mass/Vol] 2.7 g/dL [facility] Glucose Poct Glucometerson 0 09-10-2022 Glucose [Mass/Vol] 188 mg/dL Normal [facility] Comment on above: Result Comment: [facility] Glucose Reference Range is dependent on time and content of last meal. Glucose of more than 200 mg/dL in a nonstressed, ambulatory subject supports the diagnosis of Diabetes Mellitus. PERFORMED BY: [facility] [address] [place] [address] PATHOLOGIST RELEASE MANAGER EZRA MCCLAIN M.D. Performed By: #### G LULS #### Point of Care testing , Glucose [Mass/Vol] 118 mg/dL Normal [facility] Comment on above: Result Comment: [facility] Glucose Reference Range is dependent on time and content of last meal. Glucose of more than 200 mg/dL in a nonstressed, ambulatory subject supports the diagnosis of Diabetes Mellitus. PERFORMED BY: [facility] [address] [facility] [place] [address] PATHOLOGIST RELEASE MANAGER EZRA MCCLAIN M.D. Performed By: #### G LULS #### Point of Care testing , Glucose [Mass/volume] in Ser um or PlasmaOrdered By: Joo Ramos on 09-10-2022 Glucose [Mass/Vol] 91 mg/dL 74-109 [facility] Comment on above: ADA recommended refe [...] from glycated hemoglobin (Bld) [Mass/Vol] 128 mg/dL [facility] Hematocrit Auto (Bld) [Volum e fraction]Ordered By: Joo Ramos on 09-10-2022 Hematocrit (Bld) [Volume fraction] 37.7 % 34.0-46.[address] [facility] Hemoglobin A1c percentageOrd ered By: Marilyn Sun on 09-10-2022 HbA1c (Bld) [Mass fraction] 6.1 % 4.3-5.[address] [facility] Comment on above: Increased risk for d iabetes: 5.7 - 6.4diabetes: >6.4glycemic control for adults with diabetes: <7.0 Hemoglobin [Mass/volume] in BloodOrdered By: Joo Ramos on 09-10-2022 Hemoglobin (Bld) [Mass/Vol] 12.5 g/dL 11.8-15.[address] [facility] Hepatic Panelon 09-10-2022 Albumin [Mass/Vol] 4.4 g/dL Normal 3.5-5.7 [facility] Comment on above: Performed By: #### C MP, CBC #### [facility] [address] Albumin/Globulin [Mass ratio] 1.6 {ratio} Normal [facility] Comment on above: Performed By: #### C MP, CBC #### [facility] [address] [place] [address] [place] ALP [Catalytic activity/Vol] 121 U/L High 34-[address] [facility] Comment on above: Performed By: #### C MP, CBC #### [facility] [address] [place] [address] [place] ALT [Catalytic activity/Vol] 50 U/L Normal 7-[address] [facility] Comment on above: Performed By: #### C MP, CBC #### [facility] [address] AST [Catalytic activity/Vol] 71 U/L High 13-[address] [facility] Comment on above: Performed By: #### C MP, CBC #### [facility] [address] Bilirubin [Mass/Vol] 0.4 mg/dL Normal 0.3-1.0 [facility] Comment on above: Performed By: #### C MP, CBC #### [facility] [address] Bilirubin,Indirect 0.3 mg/dL Normal [facility] Comment on above: Performed By: #### C MP, CBC #### [facility] [address] Bilirubin.indirect [Mass/Vol] 0.10 mg/dL Normal 0.03-0.[address] [facility] Comment on above: Performed By: #### C MP, CBC #### [address] Globulin (S) [Mass/Vol] 2.7 g/dL Normal [facility] Comment on above: Performed By: #### C MP, CBC #### [address] Protein [Mass/Vol] 7.1 g/dL Normal 6.4-8.9 [facility] Comment on above: Performed By: #### C MP, CBC #### [address] Ketones Auto test strip (U) [Mass/Vol]Ordered By: Joo Ramos on 09-10-2022 Ketones (U) [Mass/Vol] Negative Negative [facility] - Chemistry and C hemistry - challengeOrdered By: Joo Ramos on 09-10-2022 GFR/1.73 sq M.predicted MDRD (S/P/Bld) [Vol rate/Area] mL/min/{1.73_m2} [facility] - CoagulationOrde red By: Joo Ramos on 09-10-2022 PT Coag (PPP) [Time] 11.8 s 9.0-12.9 [facility] Leukocytes [#/volume] correc jeffrey for nucleated erythrocytes in Blood by Automated counOrdered By: Joo Ramos on 09-10-2022 WBC corrected for nucl RBC Auto (Bld) [#/Vol] 5.2 10*3/uL 3.8-11.[address] [facility] Lipid Panelon 09-10-2022 Cholesterol [Mass/Vol] 169 mg/dL Normal 140-[address] [facility] Comment on above: Order Comment: Comme nt add on Result Comment: Chol less than 200 mg/dl low risk Chol 201-239 mg/dl borderline risk Chol 240 mg/dl and greater high risk Performed By: #### C MP, CBC #### [facility] [address] [place] [id number] [facility] Cholesterol in HDL [Mass/Vol] 73 mg/dL Normal 35-[address] [facility] Comment on above: Order Comment: Comme nt add on Result Comment: HDL CHOL ATP-III CLASSIFICATION Cardiovascular Risk HDL > or equal to 60 mg/dL LOW HDL < 40 mg/dL HIGH Performed By: #### C MP, CBC #### [facility] [address] [place] [address] [facility] Cholesterol.total/Ch olesterol in HDL [Mass ratio] 2.3 {ratio} Normal <5.[address] [facility] Comment on above: Order Comment: Comme nt add on Result Comment: PERF ORMED BY: [place] [address] PATHOLOGIST RELEASE MANAGER EZRA MCCLAIN M.D. Performed By: #### C MP, CBC #### [facility] [address] [place] [address] [place] LDL Cholesterol,Calculat ed 62 mg/dL Normal 0-[address] [facility] Comment on above: Order Comment: Comme nt add on Result Comment: LDL ATP III CLASSIFICATION LDL less than 100 mg/dL Optimal LDL 100-129 mg/dL Near or above optimal LDL 130-159 mg/dL Borderline high LDL 160-189 mg/dL High LDL greater than 189 mg/dL Very high Performed By: #### C MP, CBC #### [facility] [address] Triglyceride w/Reflex 172 mg/dL High 0-[address] [facility] Comment on above: Order Comment: Comme nt add on Result Comment: TRIG ATP III CLASSIFICATION TRIG less than 150 mg/dL Normal TRIG 150-199 mg/dL Borderline high TRIG 200-500 mg/dL High TRIG greater than 500 mg/dL Very high Standard traceable to the Center for Disease Conrtrol and Prevention (CDC) test method. Performed By: #### C MP, CBC #### [facility] [address] VLDL CHOLESTEROL 34 mg/dL Normal [facility] Comment on above: Order Comment: Comme nt add on Performed By: #### C MP, CBC #### [facility] [address] Lymphocytes Auto (Bld) [#/Vo l]Ordered By: Joo Ramos on 09-10-2022 Lymphocytes (Bld) [#/Vol] 1.1 10*3/uL 1.00-4.[address] [facility] Lymphocytes/100 WBC Auto (Bl d)Ordered By: Joo Ramos on 09-10-2022 Lymphocytes/100 WBC (Bld) 21.5 % . [facility] MCH Auto (RBC) [Entitic mass ]Ordered By: Joo Ramos on 09-10-2022 MCH (RBC) [Entitic mass] 31.8 pg 24.7-34.[address] [facility] MCHC Auto (RBC) [Mass/Vol]Or dered By: Joo Ramos on 09-10-2022 MCHC (RBC) [Mass/Vol] 33.1 g/dL 32.0-35.[address] [facility] MCV Auto (RBC) [Entitic vol] Ordered By: Joo Ramos on 09-10-2022 MCV (RBC) [Entitic vol] 96.1 fL 80-[address] [facility] Monocyte distribution width [Entitic volume] in Blood by AutomatedOrdered By: Joo Ramos on 09-10-2022 Monocyte distribution width Auto (Bld) [Entitic vol] 18.14 % 0.00-20.[address] [facility] Monocytes Auto (Bld) [#/Vol] Ordered By: Joo Ramos on 09-10-2022 Monocytes (Bld) [#/Vol] 0.3 10*3/uL 0.0-0.[address] [facility] Monocytes/100 WBC Auto (Bld) Ordered By: Joo Ramos on 09-10-2022 Monocytes/100 WBC (Bld) 5.1 % . [facility] Natriuretic peptide B [Mass/ Vol]Ordered By: Joo Ramos on 09-10-2022 Natriuretic peptide B (Bld) [Mass/Vol] 6.0 pg/mL 5-[address] [facility] Neutrophils Auto (Bld) [#/Vo l]Ordered By: Joo Ramos on 09-10-2022 Neutrophils (Bld) [#/Vol] 3.7 10*3/uL 1.8-7.[address] [facility] Neutrophils/100 WBC Auto (Bl d)Ordered By: Joo Ramos on 09-10-2022 Neutrophils/100 WBC (Bld) 70.7 % . [facility] Nitrite Test strip Ql (U)Ord ered By: Joo Ramos on 09-10-2022 Nitrite Ql (U) Negative Negative [facility] No Panel InformationOrdered By: Joo Ramos on 09-10-2022 Pharmacy Creatinine Clearance (Chem 109.[address] [facility] Nucleated erythrocytes [Pres ence] in Blood by Automated countOrdered By: Joo Ramos on 09-10-2022 Nucleated RBC Auto Ql (Bld) 0.3 /100{WBC} 0-0.[address] [facility] Partial Thromboplastin Timeo n 09-10-2022 aPTT Coag (Bld) [Time] 31.2 s Normal 25.1-36.[address] [facility] Comment on above: Result Comment: PERF ORMED BY: [place] [address] PATHOLOGIST RELEASE MANAGER EZRA MCCLAIN M.D. Performed By: #### C MP, CBC #### [address] Platelet mean volume Auto (B ld) [Entitic vol]Ordered By: Joo Ramos on 09-10-2022 Platelet mean volume (Bld) [Entitic vol] 7.2 fL 6.3-10.[address] [facility] Platelet poor plasma interna tional normalized ratio (INR) by coagulation assay (relatOrdered By: Joo Ramos on 09-10-2022 INR Coag (PPP) [Relative time] 1.0 {INR} [facility] Comment on above: INR Therapeutic Rang [...] 09-10-2022 Platelets (Bld) [#/Vol] 180 10*3/uL 150-[address] [facility] Potassium [Moles/volume] in Serum or PlasmaOrdered By: Joo Ramos on 09-10-2022 Potassium [Moles/Vol] 4.7 mmol/L 3.5-5.[address] [facility] Protein Auto test strip (U) [Mass/Vol]Ordered By: Joo Ramos on 09-10-2022 Protein (U) [Mass/Vol] Negative Negative [facility] Protein [Mass/volume] in Ser um or PlasmaOrdered By: Joo Ramos on 09-10-2022 Protein [Mass/Vol] 7.1 g/dL 6.4-8.9 [facility] Prothrombin Time INRon 09-10 INR Coag (PPP) [Relative time] 1.0 {INR} Normal [facility] Comment on above: Result Comment: INR [...] Performed By: #### C MP, CBC #### [facility] [address] [id number] [facility] PT Coag (PPP) [Time] 11.8 s Normal 9.0-12.9 [facility] Comment on above: Performed By: #### C MP, CBC #### [facility] [address] [place] [address] RBC Auto (Bld) [#/Vol]Ordere d By: Joo Ramos on 09-10-2022 RBC (Bld) [#/Vol] 3.92 10*6/uL 3.60-5.00 [facility] Respiratory (Upper) Panel, P CRon 09-10-2022 Respiratory [...] COVID-19 Detected/Not Detected Not detected PERFORMED BY: [place] [address] PATHOLOGIST RELEASE MANAGER EZRA MCCLAIN M.D. [facility] Comment on above: Performed By: #### C MP, CBC #### [facility] [address] [place] [address] Respiratory pathogens DNA an d RNA panel - Nasopharynx by TERESO with non-probe detectionOrdered By: Marilyn Sun on 09-10-2022 Respiratory pathogens DNA and RNA panel TERESO+non-probe (Nph) [facility] Serum or plasma albumin/glob ulin mass ratioOrdered By: Joo Ramos on 09-10-2022 Albumin/Globulin [Mass ratio] 1.6 {ratio} [facility] Serum or plasma anion gap de terminationOrdered By: Joo Ramos on 09-10-2022 Anion gap [Moles/Vol] 13.7 mmol/L 6.0-15.[address] [facility] Serum or plasma high density lipoprotein (HDL) cholesterol measurementOrdered By: Marilyn Sun on 09-10-2022 Cholesterol in HDL [Mass/Vol] 73 mg/dL 35-[address] [facility] Comment on above: HDL CHOL ATP-III CLA SSIFICATION Cardiovascular RiskHDL > or equal to 60 mg/dL LOWHDL < 40 mg/dL HIGH Serum or plasma non-glucuron idated bilirubin measurement (mass/volume)Ordered By: Joo Ramos on 09-10-2022 Bilirubin.indirect [Mass/Vol] 0.3 mg/dL [facility] Serum or plasma total choles terol/high density lipoprotein (HDL) cholesterol mass ratOrdered By: Marilyn Sun on 09-10-2022 Cholesterol.total/Ch olesterol in HDL [Mass ratio] 2.3 {ratio} <5.[address] [facility] Sodium [Moles/volume] in Ser um or PlasmaOrdered By: Joo Ramos on 09-10-2022 Sodium [Moles/Vol] 137 mmol/L 136-145 [facility] Specific gravity Auto test s trip (U) [Rel density]Ordered By: Joo Ramos on 09-10-2022 Specific gravity (U) [Rel density] 1.005 1.001-1.[address] [facility] Triglyceride [Mass/volume] i n Serum or PlasmaOrdered By: Marilyn Sun on 09-10-2022 Triglyceride [Mass/Vol] 172 mg/dL 0-[address] [facility] Comment on above: TRIG ATP III CLASSIF ICATIONTRIG less than 150 mg/dL NormalTRIG 150-199 mg/dL Borderline highTRIG 200-500 mg/dL High TRIG greater than 500 mg/dL Very highStandard traceable to the Center for Disease Conrtrol and Prevention (CDC) test method. Troponin I High Sensitivityo n 09-10-2022 Troponin I High Sensitivity 6.3 pg/mL Normal 0.0-15.[address] [facility] Comment on above: Result Comment: PERF ORMED BY: [facility] [address] [place] [address] PATHOLOGIST RELEASE MANAGER EZRA MCCLAIN M.D. Performed By: #### H S TROP #### [place] [address] [place] Troponin I High Sensitivity 6.6 pg/mL Normal 0.0-15.[address] [facility] Comment on above: Result Comment: PERF ORMED BY: [place] [address] PATHOLOGIST RELEASE MANAGER EZRA MCCLAIN M.D. Performed By: #### H S TROP #### [address] Troponin I High Sensitivity 6.3 pg/mL Normal 0.0-15.[address] [facility] Comment on above: Result Comment: PERF ORMED BY: [place] [address] PATHOLOGIST RELEASE MANAGER EZRA MCCLAIN M.D. Performed By: #### C MP, CBC #### [address] Troponin I.cardiac [Mass/vol ume] in Serum or Plasma by Detection limit <= 0.01 ng/Ordered By: Marilyn Sun on 09-10-2022 Troponin I.cardiac DL <= 0.01 ng/mL [Mass/Vol] 5.3 pg/mL 0.0-15.[address] [facility] Troponin I.cardiac [Mass/vol ume] in Serum or Plasma by Detection limit <= 0.01 ng/Ordered By: Joo Ramos on 09-10-2022 Troponin I.cardiac DL <= 0.01 ng/mL [Mass/Vol] 6.3 pg/mL 0.0-15.[address] [facility] Urea nitrogen [Mass/volume] in Serum or PlasmaOrdered By: Joo Ramos on 09-10-2022 Urea nitrogen [Mass/Vol] 24 mg/dL 01-[address] [facility] Urinalysison 09-10-2022 Appearance (U) Clear Normal Clear [facility] Comment on above: Order Comment: Name Collection Type:: Clean-Voided Midstream Performed By: #### C MP, CBC #### [address] [place] [address] [place] Bilirubin,Urine Negative Normal Negative [facility] Comment on above: Order Comment: Name Collection Type:: Clean-Voided Midstream Performed By: #### C MP, CBC #### [place] [id number] [place] Color (U) Yellow Normal Yellow [facility] Comment on above: Order Comment: Name Collection Type:: Clean-Voided Midstream Performed By: #### C MP, CBC #### [place] [address] [place] Glucose Ql (U) Normal Normal Normal [facility] Comment on above: Order Comment: Name Collection Type:: Clean-Voided Midstream Performed By: #### C MP, CBC #### [place] [address] [place] Ketones Ql (U) Negative Normal Negative [facility] Comment on above: Order Comment: Name Collection Type:: Clean-Voided Midstream Performed By: #### C MP, CBC #### [place] [address] [place] Leukocyte esterase Test strip Ql (U) Negative Normal Negative [facility] Comment on above: Order Comment: Name Collection Type:: Clean-Voided Midstream Performed By: #### C MP, CBC #### [place] [address] [place] Nitrite,Urine Negative Normal Negative [facility] Comment on above: Order Comment: Name Collection Type:: Clean-Voided Midstream Performed By: #### C MP, CBC #### [facility] [address] [place] [address] [place] Occult Blood,Urine Negative Normal Negative [facility] Comment on above: Order Comment: Name Collection Type:: Clean-Voided Midstream Result Comment: PERF ORMED BY: [place] [address] PATHOLOGIST RELEASE MANAGER EZRA MCCLAIN M.D. Performed By: #### C MP, CBC #### [facility] [address] [place] [address] [place] pH (U) 5.5 [pH] Normal 5.0-9.[address] [facility] Comment on above: Order Comment: Name Collection Type:: Clean-Voided Midstream Performed By: #### C MP, CBC #### [facility] [address] [place] [address] [place] Protein,Urine Negative Normal Negative [facility] Comment on above: Order Comment: Name Collection Type:: Clean-Voided Midstream Performed By: #### C MP, CBC #### [facility] [address] Specificy [place],Urine 1.005 Normal 1.001-1.[address] [facility] Comment on above: Order Comment: Name Collection Type:: Clean-Voided Midstream Performed By: #### C MP, CBC #### [address] Urobilinogen,Urine Normal Normal Normal [facility] Comment on above: Order Comment: Name Collection Type:: Clean-Voided Midstream Performed By: #### C MP, CBC #### [address] Urine clarity by refractomet ry automatedOrdered By: Joo Ramos on 09-10-2022 Clarity Refractometry automated (U) Clear Clear [facility] Urine glucose measurement by automated test strip (mass/volume)Ordered By: Joo Ramos on 09-10-2022 Glucose Auto test strip (U) [Mass/Vol] Normal mg/dL Normal [facility] Urine hemoglobin detection b y automated test stripOrdered By: Joo Ramos on 09-10-2022 Hemoglobin Auto test strip Ql (U) Negative Negative [facility] Urine leukocyte esterase det ection by automated test stripOrdered By: Joo Ramos on 09-10-2022 Leukocyte esterase Auto test strip Ql (U) Negative Negative [facility] Urobilinogen Auto test strip (U) [Mass/Vol]Ordered By: Joo Ramos on 09-10-2022 Urobilinogen (U) [Mass/Vol] Normal mg/dL Normal [facility] WBC Auto (Bld) [#/Vol]Ordere d By: Joo Ramos on 09-10-2022 WBC (Bld) [#/Vol] 5.2 10*3/uL 3.8-11.6 [facility] XR chest 2V*on 09-10-2022 XR chest 2V* [facility] [place] [address] [place] [id number] XRay Report Signed Patient: Carmen Bledsoe MR#: [id number] 9 : 1960 Acct:[id number] Age/Sex: 61 / F ADM Date: 09/10/22 [...] Vicente Jr., SandieOFranco09/10/2022 11:55 AM Dictation Location: [place] [address] Transcribed By: [facility] 09/10/22 1155 Dictated By: Jacques Vicente Jr, DO 09/10/22 1155 Signed By: 09/10/[address] [facility] pH Auto test strip (U)Ordere d By: Joo Ramos on 09-10-2022 pH (U) 5.5 [pH] 5.0-9.[address] [facility] CHEMISTRYOrdered By: SYSTEM SYSTEM on 09-06-2022 [...] [Vol rate/Area] mL/min/1.73 m2 Normal >=59mL/min/1.73 m2 [facility] Chem S Glucose [Mass/Vol] 102 mg/dL [...] g/dL Normal 3.3 - 5.0 gm/dL F [facility] Remisol Albumin/Globulin [Mass ratio] 1.2 {ratio} Normal [...] and upper abdomen normal. IMPRESSION: Negative chest. [facility] Phone: Radiology Study observation (narrative) [facility] Phone: XR CHEST (2 VW)Ordered By: Chester Minor on 05-21-2021 [facility] [employer] Phone: COVID-19on 03-17-2020 SARS-CoV-2, Rapid Not Detected Not Detected [place], [place] Comment on above: Rapid NAAT: The [...] management decisions. Fact sheet for Healthcare Providers: https://www.fda.gov/media/349484/download Fact sheet for Patients: https://www.fda.gov/media/101296/download Methodology: Isothermal Nucleic Acid Amplification Source .THROAT [place] Otheron 03-17-2020 SARS-CoV-2 [place] US PELVIS COMPLETEon 020 1. 8 cm intrauterine fibroid. 2. Likely vascular polyp in the cervix. [place] EXAM: US PELVIS COMPLETE HISTORY: N85.2. [...] ovary: 2.8 x 2.0 x 1.3 cm. [place] Dre, Mhpn Incoming Radiant Results From [employer] - 02/19/2020 4:19 PM EDT EXAM: US [...] 2. Likely vascular polyp in the cervix. [place] BUN & creatinineon 0 Creatinine [Mass/Vol] 0.81 mg/dL 0.5 - 0.9 mg/dL [place] GFR >60 >60 mL/min [place] GFR Non- >60 >60 mL/min [place] GFR/1.73 sq M predicted among non-blacks MDRD (S/P/Bld) [Vol rate/Area] [place] Comment on above: Average GFR for 50-5 9 years old: 93 mL/min/1.73sq m Chronic Kidney Disease: <60 mL/min/1.73sq m Kidney failure: <15 mL/min/1.73sq m eGFR calculated using average adult body mass. Additional eGFR calculator available at: http://www.Netviewer.[employer]/multiple_crcl_2012.htm GFR/1.73 sq M predicted among non-blacks MDRD (S/P/Bld) [Vol rate/Area] NOT REPORTED [place] Urea nitrogen [Mass/Vol] 15 mg/dL 6 - 20 mg/dL [place] CT ABDOMEN PELVIS W IV CONTR AST Additional Contrast? Oralon 02-07-2020 No acute process in the abdomen or pelvis. Enlarged, fatty liver. Prominent, bulky uterus, a nonspecific finding that may be related to underlying fibroids or adenomyosis. [place] EXAMINATION: CT ABDOMEN PELVIS W IV [...] Chronic degenerative changes in the thoracolumbar spine. [place] Dre, Mhpn Incoming Radiant Results From [employer] - 02/07/2020 3:09 PM EDT EXAMINATION: CT [...] be related to underlying fibroids or adenomyosis. [place] CBC Auto Differentialon 03-0 5-2020 Basophils (Bld) [#/Vol] 0.00 10*3/uL [place] Basophils/100 WBC (Bld) 0 % 0 - 2 % [place] Differential Type YES [place] Eosinophils (Bld) [#/Vol] 0.10 10*3/uL [place] Eosinophils/100 WBC (Bld) 1 % 0 - 5 % [place] Erythrocyte distribution width (RBC) [Ratio] 15.7 % High 12.1 - 15.2 % [place] Hematocrit (Bld) [Volume fraction] 37.6 % 36 - 46 % [place] Hemoglobin (Bld) [Mass/Vol] 12.4 g/dL 12 - 16 g/dL [place] Interpretation and review of laboratory results Abnormal [place] Lymphocytes (Bld) [#/Vol] 1.40 10*3/uL [place] Lymphocytes/100 WBC (Bld) 20 % 15 - 40 % [place] MCH (RBC) [Entitic mass] 29.0 pg 26 - 34 pg [place] MCHC (RBC) [Mass/Vol] 33.0 g/dL 31 - 37 g/dL [place] MCV (RBC) [Entitic vol] 87.9 fL 80 - 100 fL [place] Monocytes (Bld) [#/Vol] 0.40 10*3/uL [place] Monocytes/100 WBC (Bld) 6 % 4 - 8 % [place] Platelet mean volume (Bld) [Entitic vol] NOT REPORTED 6 - 12 fL [place] Platelets (Bld) [#/Vol] NOT REPORTED [place] Platelets (Bld) [#/Vol] 268 10*3/uL [place] RBC (Bld) [#/Vol] 4.28 10*6/uL 4 - 5.2 m/uL [place] RBC morphology finding Nom (Bld) NOT REPORTED [place] Segmented neutrophils/100 WBC (Bld) 73 % 47 - 75 % [place] Segs Absolute 5.10 [place] WBC (Bld) [#/Vol] 7.1 10*3/uL [place] WBC (Bld) [#/Vol] NOT REPORTED per 100 WBC [place] WBC Morphology NOT REPORTED [place] Comprehensive Metabolic Pane usman 09-06-2019 Albumin [Mass/Vol] 4.5 g/dL 3.5 - 5.2 g/dL [place] Albumin/Globulin [Mass ratio] NOT REPORTED [place] ALP [Catalytic activity/Vol] 92 U/L 35 - 104 U/L [place] ALT [Catalytic activity/Vol] 28 U/L 5 - 33 U/L [place] Anion gap [Moles/Vol] 13 mmol/L 9 - 17 mmol/L [place] AST [Catalytic activity/Vol] 19 U/L <32 [place] Bilirubin Ql (U) 0.40 mg/dL 0.3 - 1.2 mg/dL [place] Bun/Cre Ratio 26 High [place] Calcium [Mass/Vol] 10.2 mg/dL 8.6 - 10.4 mg/dL [place] Chloride [Moles/Vol] 99 mmol/L 98 - 107 mmol/L [place] CO2 [Moles/Vol] 28 mmol/L 20 - 31 mmol/L [place] Creatinine [Mass/Vol] 0.86 mg/dL 0.5 - 0.9 mg/dL [place] GFR >60 >60 mL/min [place] GFR Non- >60 >60 mL/min [place] GFR/1.73 sq M predicted among non-blacks MDRD (S/P/Bld) [Vol rate/Area] NOT REPORTED [place] GFR/1.73 sq M predicted among non-blacks MDRD (S/P/Bld) [Vol rate/Area] [place] Comment on above: Average GFR for 50-5 9 years old: 93 mL/min/1.73sq m Chronic Kidney Disease: <60 mL/min/1.73sq m Kidney failure: <15 mL/min/1.73sq m eGFR calculated using average adult body mass. Additional eGFR calculator available at: http://www.[employer]That/multiple_crcl_2011.htm Glucose [Mass/Vol] 121 mg/dL High 70 - 99 mg/dL [place], [place] Potassium [Moles/Vol] 4.6 mmol/L 3.7 - 5.3 mmol/L [place] Protein [Mass/Vol] 7.7 g/dL 6.4 - 8.3 g/dL [place] Sodium [Moles/Vol] 140 mmol/L 135 - 144 mmol/L [place] Urea nitrogen [Mass/Vol] 22 mg/dL High 6 - 20 mg/dL [place] Hemoglobin A1Con 09-06-2019 Glucose [Mass/Vol] 128 mg/dL [place] Comment on above: The ADA and AACC rec ommend providing the estimated average glucose result to permit better patient understanding of their HBA1c result. HbA1c (Bld) [Mass fraction] 6.1 % High 4.8 - 5.9 % [place] Interpretation and review of laboratory results Abnormal [place] Lipid Panelon 09-06-2019 Cholesterol [Mass/Vol] 166 mg/dL <200 [place] Comment on above: Cholesterol Guidelines: <200 Desirable 200-240 Borderline >240 Undesirable Cholesterol in HDL [Mass/Vol] 39 mg/dL Low >40 [place] Comment on above: HDL Guidelines: <40 Undesirable 40-59 Borderline >59 Desirable Cholesterol in LDL [Mass/Vol] 71 mg/dL 0 - 130 mg/dL [place] Comment on above: LDL Guidelines: <100 Desirable 100-129 Near to/above Desirable 130-159 Borderline >159 Undesirable Direct (measured) LDL and calculated LDL are not interchangeable tests. Cholesterol in VLDL [Mass/Vol] NOT REPORTED High 1 - 30 mg/dL [place] Cholesterol.total/Ch olesterol in HDL [Mass ratio] 4.3 {ratio} <5 [place] Triglyceride [Mass/Vol] 280 mg/dL High <150 [place] Comment on above: Triglyceride Guidelines: <150 Desirable 150-199 Borderline 200-499 High >499 Very high Based on AHA Guidelines for fasting triglyceride, April 2012. Magnesiumon 09-06-2019 Magnesium [Mass/Vol] 1.9 mg/dL 1.6 - 2.6 mg/dL [place] Otheron 09-06-2019 Interpretation and review of laboratory results Abnormal [place] Immature granulocytes (Bld) [#/Vol] NOT REPORTED 0 % [place] Patient Fasting?on 0 Patient Fasting? yes [place] TSH with Reflexon 09-06-2019 TSH Qn 2.01 m[IU]/L [place] Vitamin D 25 Hydroxyon 09-05 Interpretation and review of laboratory results Abnormal [place] Vit D, 25-Hydroxy 29.5 ng/mL Low 30 - 100 ng/mL [place], [place] Comment on above: Reference Range: Vitamin D status Range Deficiency <20 ng/mL Mild Deficiency 20-30 ng/mL Sufficiency 30-100 ng/mL Toxicity >100 ng/mL XR CHEST STANDARD (2 VW)on 0 09-06-2019 No evidence of acute disease in the chest or change from 02/23/2018. [place] CHEST, TWO VIEWS, 09/06/2019: CLINICAL HISTORY: [...] calcification and tortuosity of the thoracic aorta. [place], [place] Dre, Mhpn Incoming Radiant Results From [employer] - 09/06/2019 10:11 PM EST CHEST, TWO [...] in the chest or change from 02/23/2018. [place] Vital Signs Date Time Vital Sign Value Performing Clinician Faci lity 04-03-2025 09:54-0400 Body height 160.02 cm Myron WATERMAN Work Phone: [facility] 04-03-2025 09:54-0400 Body mass index (BMI) [Ratio] 62.8 kg/m2 Myron WATERMAN Work Phone: [facility] 04-03-2025 09:54-0400 Body weight 161.02 kg Myron WATERMAN Work Phone: [facility] 11-07-2024 09:58-0400 Body height 167.6 cm MALINA Dean MD Work Phone: [facility] 11-07-2024 09:58-0400 Body mass index (BMI) [Ratio] 54.72 kg/m2 MALINA Dean MD Work Phone: [facility] 11-07-2024 09:58-0400 Body weight 153.77 kg MALINA Dean MD Work Phone: [facility] 11-07-2024 09:58-0400 Diastolic blood pressure 82 mm[Hg] MALINA Dean MD Work Phone: [facility] 11-07-2024 09:58-0400 Heart rate 85 /min MALINA Dena MD Work Phone: [facility] 11-07-2024 09:58-0400 Respiratory rate 22 /min MALINA Dean MD Work Phone: [facility] 11-07-2024 09:58-0400 SaO2% (BldA) [Mass fraction] 97 % MALINA Dean MD Work Phone: [facility] 11-07-2024 09:58-0400 Systolic blood pressure 122 mm[Hg] MALINA Dean MD Work Phone: [facility] 07-18-2024 11:52-0500 Blood Pressure Location Myron Rust [facility] 07-18-2024 11:52-0500 Body temperature 97.52 [degF] Myron Yocasta [facility] 07-18-2024 11:52-0500 Diastolic blood pressure 82 mm[Hg] Myron Yocasta [facility] 07-18-2024 11:52-0500 Heart rate 78 /min Myron Yocasta [facility] 07-18-2024 11:52-0500 Respiratory rate 18 /min Myron Yocasta [facility] 07-18-2024 11:52-0500 SaO2% (BldA) [Mass fraction] 98 % Myron Yocasta [facility] 07-18-2024 11:52-0500 Systolic blood pressure 138 mm[Hg] Myron Yocasta [facility] 07-11-2024 11:15-0500 Blood Pressure Location Myron Yocasta [facility] 07-11-2024 11:15-0500 Body temperature 97.52 [degF] Myron Yocasta [facility] 07-11-2024 11:15-0500 Diastolic blood pressure 78 mm[Hg] Myron Yocasta [facility] 07-11-2024 11:15-0500 Heart rate 92 /min Myron Yocasta [facility] 07-11-2024 11:15-0500 Respiratory rate 18 /min Myron Yocasta [facility] 07-11-2024 11:15-0500 SaO2% (BldA) [Mass fraction] 99 % Myron Yocasta [facility] 07-11-2024 11:15-0500 Systolic blood pressure 118 mm[Hg] Myron Yocasta [facility] 06-05-2024 12:57-0500 Blood Pressure Location Rick Hernandez [facility] 06-05-2024 12:57-0500 Diastolic blood pressure 80 mm[Hg] Rick Hernandez [facility] 06-05-2024 12:57-0500 Heart rate 90 /min Rick Hernandez [facility] 06-05-2024 12:57-0500 Respiratory rate 16 /min Rick Hernandez [facility] 06-05-2024 12:57-0500 SaO2% (BldA) [Mass fraction] 96 % Rick Hernandez [facility] 06-05-2024 12:57-0500 Systolic blood pressure 126 mm[Hg] Rick Hernandez [facility] 02-22-2024 13:08-0400 Blood Pressure Location Myron Yocasta [facility] 02-22-2024 13:08-0400 Body temperature 97.88 [degF] Myron Yocasta [facility] 02-22-2024 13:08-0400 Diastolic blood pressure 68 mm[Hg] Myron Yocasta [facility] 02-22-2024 13:08-0400 Heart rate 63 /min Myron Yocasta [facility] 02-22-2024 13:08-0400 Respiratory rate 18 /min Myron Yocasta [facility] 02-22-2024 13:08-0400 SaO2% (BldA) [Mass fraction] 99 % Myron Yocasta [facility] 02-22-2024 13:08-0400 Systolic blood pressure 118 mm[Hg] Myron Yocasta [facility] 12-23-2023 13:25-0400 Diastolic blood pressure 84 mm[Hg] Walker Phillip [facility] 12-23-2023 13:25-0400 Heart rate 78 /min Cardoso Sarmini [facility] 12-23-2023 13:25-0400 Mean blood pressure 111 mm[Hg] Cardoso Sarmini [facility] 12-23-2023 13:25-0400 Respiratory rate 24 /min Cardoso Sarmini [facility] 12-23-2023 13:25-0400 SaO2% (BldA) [Mass fraction] 98 % Cardoso Sarmini [facility] 12-23-2023 13:25-0400 Systolic blood pressure 166 mm[Hg] Cardoso Sarmini [facility] 12-23-2023 13:15-0400 Diastolic blood pressure 89 mm[Hg] Cardoso Sarmini [facility] 12-23-2023 13:15-0400 Heart rate 69 /min Cardoso Sarmini [facility] 12-23-2023 13:15-0400 Mean blood pressure 111 mm[Hg] Cardoso Sarmini [facility] 12-23-2023 13:15-0400 Respiratory rate 17 /min Cardoso Sarmini [facility] 12-23-2023 13:15-0400 SaO2% (BldA) [Mass fraction] 99 % Cardoso Sarmini [facility] 12-23-2023 13:15-0400 Systolic blood pressure 155 mm[Hg] Cardoso Sarmini [facility] 12-23-2023 13:10-0400 Diastolic blood pressure 95 mm[Hg] Cardoso Sarmini [facility] 12-23-2023 13:10-0400 Heart rate 85 /min Cardoso Sarmini [facility] 12-23-2023 13:10-0400 Mean blood pressure 110 mm[Hg] Cardoso Sarmini [facility] 12-23-2023 13:10-0400 Respiratory rate 15 /min Cardoso Sarmini [facility] 12-23-2023 13:10-0400 SaO2% (BldA) [Mass fraction] 99 % Cardoso Derekmini [facility] 12-23-2023 13:10-0400 Systolic blood pressure 141 mm[Hg] Cardoso Sarmini [facility] 12-23-2023 13:00-0400 Body temperature 97.7 [degF] Cardoso Sarmini [facility] 12-23-2023 10:45-0400 Blood Pressure Location Cardoso Derekmini [facility] 12-23-2023 10:45-0400 Body temperature 97.88 [degF] Cardoso Derekmini [facility] 12-06-2023 14:51-0400 Blood Pressure Location Alirio Adam [facility] 12-06-2023 14:51-0400 Diastolic blood pressure 80 mm[Hg] Alirio Ramirez [facility] 12-06-2023 14:51-0400 Heart rate 86 /min Alirio Ramirez [facility] 12-06-2023 14:51-0400 SaO2% (BldA) [Mass fraction] 94 % Alirio Adam [facility] 12-06-2023 14:51-0400 Systolic blood pressure 124 mm[Hg] Alirio Ramirez [facility] 11-25-2023 14:30-0400 Blood Pressure Location Myronross Rust [facility] 11-25-2023 14:30-0400 Body temperature 96.8 [degF] Myron Yocasta [facility] 11-25-2023 14:30-0400 Diastolic blood pressure 80 mm[Hg] Myron Yocasta [facility] 11-25-2023 14:30-0400 Heart rate 89 /min Myron Yocasta [facility] 11-25-2023 14:30-0400 Respiratory rate 22 /min Myron Yocasta [facility] 11-25-2023 14:30-0400 SaO2% (BldA) [Mass fraction] 98 % Myron Yocasta [facility] 11-25-2023 14:30-0400 Systolic blood pressure 138 mm[Hg] Myron Yocasta [facility] 11-02-2023 10:06-0400 Blood Pressure Location Cardoso Sarmini [facility] 11-02-2023 10:06-0400 Diastolic blood pressure 60 mm[Hg] Cardoso Sarmini [facility] 11-02-2023 10:06-0400 Heart rate 78 /min Cardoso Sarmini [facility] 11-02-2023 10:06-0400 Respiratory rate 18 /min Walker Reedmini [facility] 11-02-2023 10:06-0400 Systolic blood pressure 118 mm[Hg] Walker Reedmini [facility] 10-26-2023 13:12-0400 Blood Pressure Location Myron Yocasta [facility] 10-26-2023 13:12-0400 Diastolic blood pressure 78 mm[Hg] Myron Yocasta [facility] 10-26-2023 13:12-0400 Heart rate 77 /min Myron Yocasta [facility] 10-26-2023 13:12-0400 Respiratory rate 16 /min Myron Yocasta [facility] 10-26-2023 13:12-0400 SaO2% (BldA) [Mass fraction] 99 % Myron Yocasta [facility] 10-26-2023 13:12-0400 Systolic blood pressure 122 mm[Hg] Myron Yocasta [facility] 10-25-2023 14:56-0400 Blood Pressure Location Alirio Ramirez [facility] 10-25-2023 14:56-0400 Diastolic blood pressure 76 mm[Hg] Alirio Ramirez [facility] 10-25-2023 14:56-0400 Heart rate 96 /min Alirio Ramirez [facility] 10-25-2023 14:56-0400 SaO2% (BldA) [Mass fraction] 67 % Alirio Ramirez [facility] 10-25-2023 14:56-0400 Systolic blood pressure 128 mm[Hg] Alirio Ramirez [facility] 10-11-2023 17:33-0400 Diastolic blood pressure 90 mm[Hg] Myron Yocasta [facility] 10-11-2023 17:33-0400 Mean blood pressure 107 mm[Hg] Myron Yocasta [facility] 10-11-2023 17:33-0400 Systolic blood pressure 142 mm[Hg] Myron Yocasta [facility] 10-11-2023 14:21-0400 Blood Pressure Location Myron Yocasta [facility] 10-11-2023 14:21-0400 Body temperature 98.6 [degF] Myron Yocasta [facility] 10-11-2023 14:21-0400 Diastolic blood pressure 90 mm[Hg] Myron Yocasta [facility] 10-11-2023 14:21-0400 Heart rate 65 /min Myron Yocasta [facility] 10-11-2023 14:21-0400 Respiratory rate 20 /min Myron Yocasta [facility] 10-11-2023 14:21-0400 SaO2% (BldA) [Mass fraction] 95 % Myron Yocasta [facility] 10-11-2023 14:21-0400 Systolic blood pressure 144 mm[Hg] Myron Yocasta [facility] 08-10-2023 14:19-0500 Blood Pressure Location Myronross Rebolledoant [facility] 08-10-2023 14:19-0500 Body temperature 97.88 [degF] Myron Yocasta [facility] 08-10-2023 14:19-0500 Diastolic blood pressure 70 mm[Hg] Myron Yocasta [facility] 08-10-2023 14:19-0500 Heart rate 90 /min Myron Yocasta [facility] 08-10-2023 14:19-0500 Respiratory rate 20 /min Myron Yocasta [facility] 08-10-2023 14:19-0500 SaO2% (BldA) [Mass fraction] 95 % Myronross Rebolledoant [facility] 08-10-2023 14:19-0500 Systolic blood pressure 124 mm[Hg] Myron Yocasta [facility] 05-09-2023 08:04-0500 Blood Pressure Location nAsley Carrero [facility] 05-09-2023 08:04-0500 Body temperature 98.24 [degF] Ansley Carrero [facility] 05-09-2023 08:04-0500 Diastolic blood pressure 74 mm[Hg] Ansley Carrero [facility] 05-09-2023 08:04-0500 Heart rate 77 /min Ansley Carrero [facility] 05-09-2023 08:04-0500 Respiratory rate 18 /min Ansley Howardzier [facility] 05-09-2023 08:04-0500 SaO2% (BldA) [Mass fraction] 96 % Ansley Howardzier [facility] 05-09-2023 08:04-0500 Systolic blood pressure 120 mm[Hg] Ansley Howardzier [facility] 04-26-2023 10:59-0400 Blood Pressure Location Myron Yocasta [facility] 04-26-2023 10:59-0400 Body temperature 98.6 [degF] Myron Yocasta [facility] 04-26-2023 10:59-0400 Diastolic blood pressure 70 mm[Hg] Myron Yocasta [facility] 04-26-2023 10:59-0400 Heart rate 78 /min Myron Yocasta [facility] 04-26-2023 10:59-0400 Respiratory rate 18 /min Myron Yocasta [facility] 04-26-2023 10:59-0400 SaO2% (BldA) [Mass fraction] 98 % Myron Yocasta [facility] 04-26-2023 10:59-0400 Systolic blood pressure 128 mm[Hg] Myron Yocasta [facility] 03-18-2023 11:51-0400 Blood Pressure Location Myron Yocasta [facility] 03-18-2023 11:51-0400 Body temperature 97.7 [degF] Myron Yocasta [facility] 03-18-2023 11:51-0400 Diastolic blood pressure 64 mm[Hg] Myron Rebolledoant [facility] 03-18-2023 11:51-0400 Heart rate 78 /min Myron Rebolledoant [facility] 03-18-2023 11:51-0400 Respiratory rate 16 /min Myron Rust [facility] 03-18-2023 11:51-0400 SaO2% (BldA) [Mass fraction] 94 % Myron Rust [facility] 03-18-2023 11:51-0400 Systolic blood pressure 122 mm[Hg] Myron Rust [facility] 10-15-2022 05:30-0400 Diastolic blood pressure 75 mm[Hg] Demetra Cruz MD Work Phone: [employer] 10-15-2022 05:30-0400 Heart rate 98 /min Demetra Cruz MD Work Phone: [employer] [employer] 10-15-2022 05:30-0400 Respiratory rate 21 /min Demetra Cruz MD Work Phone: [employer] 10-15-2022 05:30-0400 Systolic blood pressure 119 mm[Hg] Demetra Cruz MD Work Phone: [employer] [employer] 10-15-2022 05:15-0400 SaO2% (BldA) [Mass fraction] 89 % Demetra Cruz MD Work Phone: [employer] [employer] 10-14-2022 21:50-0400 Body height 170.2 cm Demetra Cruz MD Work Phone: [facility] 04-13-2023 21:50-0400 Body mass index (BMI) [Ratio] 51.22 kg/m2 Demetra Cruz MD Work [facility] 10-14-2022 21:50-0400 Body temperature 98.1 [degF] Demetra Cruz MD Work Phone: [facility] 10-14-2022 21:50-0400 Body weight 148.33 kg Demetra Cruz MD Work Phone: [facility] 10-13-2022 08:55-0400 Blood Pressure Location Carmenkeisha Marksa [facility] 10-13-2022 08:55-0400 Diastolic blood pressure 76 mm[Hg] Carmen Jerriarda [facility] 10-13-2022 08:55-0400 Heart rate 79 /min Carmen Wiarda [facility] 10-13-2022 08:55-0400 SaO2% (BldA) [Mass fraction] 93 % Carmen Wiarda [facility] 10-13-2022 08:55-0400 Systolic blood pressure 128 mm[Hg] Carmen Wiarda [facility] 09-29-2022 11:33-0400 Blood Pressure Location Carmen Guthriearda [facility] 09-29-2022 11:33-0400 Diastolic blood pressure 72 mm[Hg] Carmen Wiarda [facility] 09-29-2022 11:33-0400 Heart rate 90 /min Carmen Jerriarda [facility] 09-29-2022 11:33-0400 SaO2% (BldA) [Mass fraction] 93 % Carmen Jerriarda [facility] 09-29-2022 11:33-0400 Systolic blood pressure 128 mm[Hg] Carmen Haley [facility] 09-24-2022 14:40-0400 Blood Pressure Location Lupis Blurtt [facility] 09-24-2022 14:40-0400 Body temperature 97.16 [degF] Lupis Blurtt [facility] 09-24-2022 14:40-0400 Diastolic blood pressure 82 mm[Hg] Lupis Blurtt [facility] 09-24-2022 14:40-0400 Heart rate 83 /min Lupis Blurtt [facility] 09-24-2022 14:40-0400 Respiratory rate 24 /min Lupis Blurtt [facility] 09-24-2022 14:40-0400 SaO2% (BldA) [Mass fraction] 92 % Lupis Blurtt [facility] 09-24-2022 14:40-0400 Systolic blood pressure 106 mm[Hg] Lupis Blurtt [facility] 09-22-2022 08:08-0400 Blood Pressure Location Carmen Haley [facility] 09-22-2022 08:08-0400 Diastolic blood pressure 78 mm[Hg] Carmen Haley [facility] 09-22-2022 08:08-0400 Heart rate 72 /min Carmen Marksa [facility] 09-22-2022 08:08-0400 SaO2% (BldA) [Mass fraction] 94 % Carmen Marksa [facility] 09-22-2022 08:08-0400 Systolic blood pressure 136 mm[Hg] Carmen Haley [facility] 09-14-2022 11:55-0400 Heart rate 79 /min DO Joo Rachel Work Phone: [facility] 09-14-2022 11:55-0400 Respiratory rate 20 /min DO Joo Rachel Work Phone: [facility] 09-14-2022 08:41-0400 SaO2% (BldA) [Mass fraction] 95 % DO Joo Rachel Work Phone: [facility] 09-14-2022 07:36-0400 Diastolic blood pressure 85 mm[Hg] DO Joo Rachel Work Phone: [facility] 09-14-2022 07:36-0400 Systolic blood pressure 134 mm[Hg] DO Joo Rachel Work Phone: [facility] 09-14-2022 05:21-0400 Body weight 153.9 kg DO Joo Rachel Work Phone: [facility] 09-14-2022 03:46-0400 Body temperature 98.1 [degF] DO Joo Rachel Work Phone: [facility] 09-13-2022 15:35-0400 Body height 160.02 cm DO Joo Rachel Work Phone: [facility] 09-11-2022 20:33-0500 Inhaled oxygen flow rate 2 L/min DO Joo Rachel Work Phone: [facility] 09-10-2022 14:03-0500 Diastolic blood pressure 57 mm[Hg] [facility] 09-10-2022 14:03-0500 Heart rate 86 /min [facility] 09-10-2022 14:03-0500 Inhaled oxygen flow rate 2 L/min [facility] 09-10-2022 14:03-0500 Respiratory rate 20 /min [facility] 09-10-2022 14:03-0500 SaO2% (BldA) [Mass fraction] 98 % [facility] 09-10-2022 14:03-0500 Systolic blood pressure 117 mm[Hg] [facility] 09-10-2022 11:11-0500 Body height 160.[address] [facility] 09-10-2022 11:11-0500 Body temperature 97.6 [degF] [facility] 09-10-2022 11:11-0500 Body weight [address] [facility] 09-06-2022 11:23-0500 Blood Pressure Location [email or web address] [facility] 09-06-2022 11:23-0500 Body temperature 97.16 [degF] [email or web address] [facility] 09-06-2022 11:23-0500 Diastolic blood pressure 80 mm[Hg] [email or web address] [facility] 09-06-2022 11:23-0500 Heart rate 83 /min [employer] [facility] 09-06-2022 11:23-0500 Respiratory rate 28 /min [email or web address] [facility] 09-06-2022 11:23-0500 SaO2% (BldA) [Mass fraction] 94 % [email or web address] [facility] 09-06-2022 11:23-0500 Systolic blood pressure 138 mm[Hg] [email or web address] [facility] 08-20-2022 15:03-0500 Diastolic blood pressure 86 mm[Hg] [email or web address] [facility] 08-20-2022 15:03-0500 Mean blood pressure 114 mm[Hg] Lupis Blurtt [facility] 08-20-2022 15:03-0500 Systolic blood pressure 170 mm[Hg] Lupis SCHWARTZ [facility] 08-20-2022 13:59-0500 Blood Pressure Location Lupis SCHWARTZ [facility] 08-20-2022 13:59-0500 Body temperature 96.98 [degF] Lupis SCHWARTZ [facility] 08-20-2022 13:59-0500 Diastolic blood pressure 102 mm[Hg] Lupis SCHWARTZ [facility] 08-20-2022 13:59-0500 Heart rate 77 /min Lupis SCHWARTZ [facility] 08-20-2022 13:59-0500 Respiratory rate 28 /min Lupis SCHWARTZ [facility] 08-20-2022 13:59-0500 SaO2% (BldA) [Mass fraction] 97 % Lupis SCHWARTZ [facility] 08-20-2022 13:59-0500 Systolic blood pressure 178 mm[Hg] Lupis SCHWARTZ [facility] 12-30-2021 11:01-0400 Blood Pressure Location Parish RUBIO [facility] [place] 12-30-2021 11:01-0400 Body temperature 98.42 [degF] Parish RUBIO [facility] [place] 12-30-2021 11:01-0400 Diastolic blood pressure 90 mm[Hg] Parish RUBIO [facility] [place] 12-30-2021 11:01-0400 Heart rate 73 /min Parish RUBIO [facility] [place] 12-30-2021 11:01-0400 SaO2% (BldA) [Mass fraction] 96 % Parish RUBIO [facility] [place] 12-30-2021 11:01-0400 Systolic blood pressure 124 mm[Hg] Parish RUBIO [facility] [place] 07-09-2021 08:54-0500 Body height 167.6 cm [employer] Work Phone: [employer] 07-09-2021 08:54-0500 Body mass index (BMI) [Ratio] 55.17 kg/m2 [employer] Work Phone: [employer] 07-09-2021 08:54-0500 Body weight 155.04 kg [employer] Work Phone: [employer] 07-02-2021 09:46-0500 Body height 167.6 cm [employer] Work Phone: [employer] 07-02-2021 09:46-0500 Body mass index (BMI) [Ratio] 56.27 kg/m2 [employer] Work Phone: [employer] 07-02-2021 09:46-0500 Body weight 158.12 kg [employer] Work Phone: [employer] 03-17-2020 12:10-0400 BP Diastolic 84 mm[Hg] [facility] [place] 03-17-2020 12:10-0400 BP Systolic 133 mm[Hg] Glenn Mainorrejilillieileana Moz[place] , [place] 03-17-2020 12:10-0400 Pulse (Heart Rate) 62 /min Glenn Malik [facility] 03-17-2020 12:10-0400 Pulse Oximetry 99 % Glenn Malik [facility] [place] , [place] 03-17-2020 12:10-0400 Respiratory Rate 18 /min Glenn Braxton [facility] 03-17-2020 11:39-0400 Body Temperature 98.4 [degF] [facility] [place] 03-17-2020 08:43-0400 BMI (Body Mass Index) 51.84 kg/m2 Glenn Malik [facility] [place], [place] 03-17-2020 08:43-0400 Body weight 150.14 kg Glenn Malik [facility] , [place] 03-17-2020 08:43-0400 Height 170.2 cm Glenn Malik [facility] , [place] 09-07-2019 13:09-0500 Pulse Oximetry 97 % [facility] Irais [facility] , [place] Encounters Encounter Date Encounter Type Care Provider Facility Start: 04-09-2025 End: 04-09-2025 [facility] Start: 04-09-2025 End: 04-09-2025 Patient encounter procedure Myron Rust [facility] [place] Start: 04-03-2025 End: 04-03-2025 ambulatory Myron Rust AC[facility]ER[facility] Work Phone: [facility] Work Phone: Start: 04-03-2025 End: 04-03-2025 Patient encounter procedure Glenn Perkins [facility] Work Phone: Start: 03-12-2025 End: 03-12-2025 ambulatory XXXX NONE Facility:[facility] Start: 03-05-2025 End: 03-05-2025 ambulatory Myron Rust Facility: [place] Start: 03-05-2025 End: 03-05-2025 Patient encounter procedure Myron Rust [facility] [place] Start: 02-11-2025 End: 02-11-2025 ambulatory Calvin Palmer MD Facility: [facility] Start: 02-04-2025 End: 02-04-2025 ambulatory Myron Rust Facility:[facility] Start: 02-04-2025 End: 02-04-2025 Patient encounter procedure Myron Rust [facility] [place] Start: 01-29-2025 End: 01-29-2025 ambulatory XXXX NONE Facility:[facility] Start: 01-24-2025 End: 01-24-2025 Emergency department patient visit Oneal Newman Facility:[facility] Start: 01-21-2025 End: 01-21-2025 ambulatory Calvin Palmer MD Facility: [facility] Start: 01-07-2025 End: 01-07-2025 ambulatory Myron Rust Facility:[facility] Start: 01-07-2025 End: 01-07-2025 Patient encounter procedure Myron Rust [facility] Start: 01-02-2025 End: 01-02-2025 Lab Drop off Myron Rust [facility] Start: 01-02-2025 End: 01-02-2025 ambulatory Myron Rust Facility:[facility] Start: 01-02-2025 End: 01-02-2025 Patient encounter procedure Myron Rust [facility] [place] Start: 01-01-2025 End: 01-01-2025 ambulatory Rick Hernandez Facility:[facility] Start: 01-01-2025 End: 01-01-2025 Patient encounter procedure Rick Hernandez [facility] Start: 12-31-2024 End: 01-31-2025 ambulatory Myron L. Yocasta Facility:[id number] Start: 12-27-2024 End: 12-29-2024 Evaluation and management of inpatient Abisai Kaur Facility:[facility] Start: 12-27-2024 Emergency department patient visit Whit Simms Facility:[facility] Start: 12-27-2024 End: 12-29-2024 Evaluation and management of inpatient Abisai Fontaineermoshe III [facility] Start: 12-19-2024 End: 12-19-2024 ambulatory Myron L. Yocasta Facility:[facility] Start: 12-19-2024 End: 12-19-2024 Patient encounter procedure Myron L. Yocasta [facility] Start: 12-19-2024 End: 12-19-2024 Lab Drop off Myron Rust [facility] Start: 12-19-2024 End: 12-19-2024 ambulatory Myron MachadoFranco Yocasta Facility: [place] Start: 12-19-2024 End: 12-19-2024 Patient encounter procedure Myron Rust [facility] [place] Start: 11-27-2024 End: 11-27-2024 ambulatory Myron LFranco Yocasta Facility: [place] Start: 11-27-2024 End: 11-27-2024 Patient encounter procedure Myron Joy Yocasta [facility] [place] Start: 11-07-2024 End: 11-07-2024 Office outpatient new 60 minutes S Dylon Dean MD Work Phone: [facility] Comment on above: Gastroesophageal ref lux disease, unspecified whether esophagitis present (Primary Dx); Morbid obesity with BMI of 50.0-59.9, adult; BRENDA (obstructive sleep apnea); Type 2 diabetes mellitus without complication, without long-term current use of insulin Start: 11-07-2024 ambulatory Coco Fan [facility] Start: 10-29-2024 End: 10-29-2024 ambulatory Calvin Palmer MD Facility: [facility] Start: 09-12-2024 End: 09-12-2024 Lab Drop off Myron Rust [facility] Start: 09-12-2024 End: 09-12-2024 ambulatory Myron Rust Facility: [place] Start: 08-29-2024 End: 08-29-2024 ambulatory Myron Rust Facility: [place] Start: 08-29-2024 End: 08-29-2024 Patient encounter procedure Myron Rust [facility] [place] Start: 07-23-2024 End: 07-23-2024 ambulatory Calvin Palmer MD Facility: [facility] Start: 07-18-2024 End: 07-18-2024 ambulatory Myron Rust Facility: [place] Start: 07-18-2024 End: 07-18-2024 Patient encounter procedure Myron Rust [facility] [place] Start: 07-13-2024 End: 07-13-2024 Lab Drop off Myron Rust [facility] Start: 07-13-2024 End: 07-13-2024 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, HEATER OPERATOR HELPER-BUFFER OPERATOR Myron Rust Facility:[facility] Start: 07-13-2024 End: 07-13-2024 Patient encounter procedure Myron Rust [facility] [place] Start: 07-11-2024 End: 07-11-2024 ambulatory Myron Rust Facility: [place] Start: 07-11-2024 End: 07-11-2024 Patient encounter procedure Myron Rust [facility] [place] Start: 06-05-2024 End: 06-05-2024 ambulatory AISHA Hernandez Facility:[facility] Start: 06-05-2024 End: 06-05-2024 Patient encounter procedure Rick Hernandez [facility] Start: 05-21-2024 End: 05-21-2024 ambulatory Calvin Palmer MD Facility:[facility] Start: 02-22-2024 End: 02-22-2024 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, HEATER OPERATOR HELPER-BUFFER OPERATOR Myron Rust Facility: [place] Start: 02-22-2024 End: 02-22-2024 Patient encounter procedure Myron Rust [facility] [place] Start: 02-10-2024 End: 09-01-2024 Pre-admission assessment Cardoso Talal Sarmini [facility] Start: 01-27-2024 End: 01-27-2024 ambulatory [facility] Start: 01-27-2024 End: 01-27-2024 Patient encounter procedure Cardoso Talal Sarmini [facility] Start: 12-23-2023 End: 12-23-2023 ambulatory Cardoso Talal Sarmini Facility:[facility] Start: 12-23-2023 End: 12-23-2023 Patient encounter procedure Walker Phillip [facility] Start: 12-19-2023 End: 12-21-2023 ambulatory KAMALJIT J [facility] Start: 12-06-2023 End: 12-06-2023 ambulatory Alirio Ramirez Facility:[facility] Start: 12-06-2023 End: 12-06-2023 Patient encounter procedure Alirio Ramirez [facility] Start: 11-25-2023 End: 11-25-2023 ambulatory LUIS, HEATER OPERATOR HELPER-BUFFER OPERATOR Myron Rust Facility:[facility] Start: 11-25-2023 End: 11-25-2023 Patient encounter procedure Myron Rust [facility] Start: 11-17-2023 End: 11-17-2023 [facility] Start: 11-10-2023 ambulatory LUIS, HEATER OPERATOR HELPER-IRVING Rust Facility:[facility] Start: 11-08-2023 End: 11-08-2023 ambulatory Alirio Ramirez Facility:[facility] Start: 11-08-2023 End: 11-08-2023 Patient encounter procedure Alirio Ramirez [facility] Start: 11-02-2023 End: 11-02-2023 ambulatory [facility] Start: 11-02-2023 End: 11-02-2023 Patient encounter procedure Walker Phillip [facility] Start: 10-26-2023 End: 10-26-2023 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, HEATER OPERATOR HELPER-BUFFER OPERATOR Myron Rust Facility:[facility] Start: 10-26-2023 End: 10-26-2023 Patient encounter procedure Myron Rust [facility] [place] Start: 10-25-2023 End: 10-25-2023 ambulatory XXXX NONE Facility:[facility] Start: 10-25-2023 End: 10-25-2023 Patient encounter procedure Alirio Ramirez [facility] Start: 10-11-2023 End: 10-11-2023 ambulatory LUIS, HEATER OPERATOR HELPER-BUFFER OPERATOR Myron Rust Facility:[facility] Start: 10-11-2023 End: 10-11-2023 [facility] Start: 10-06-2023 End: 10-06-2023 Emergency department [facility] Start: 08-30-2023 End: 09-01-2023 ambulatory [facility] Start: 08-24-2023 End: 08-27-2023 ambulatory [facility] Start: 08-10-2023 End: 08-12-2023 ambulatory [facility] Start: 08-10-2023 End: 08-12-2023 Subsequent hospital visit by physician Krysten Additional X[facility] At [facility] Comment on above: Right hip pain Start: 08-10-2023 End: 08-10-2023 Patient encounter procedure Myron Rust [facility] [place] Start: 07-21-2023 End: 07-21-2023 Subsequent hospital visit by physician Arlene Dickens [facility] Start: 07-20-2023 End: 07-20-2023 Subsequent hospital visit by physician Monico Sheppard PTA [facility] Start: 07-14-2023 End: 07-14-2023 Subsequent hospital visit by physician Arlene Dickens [facility] Start: 07-11-2023 End: 07-11-2023 [facility] Start: 07-08-2023 End: 07-08-2023 Subsequent hospital visit by physician Arlene Dickens [facility] Start: 07-07-2023 End: 07-07-2023 [facility] Start: 07-06-2023 End: 07-06-2023 Subsequent hospital visit by physician Arlene Dickens [facility] Start: 07-06-2023 [facility] Start: 06-21-2023 End: 06-21-2023 [facility] Start: 05-10-2023 End: 06-14-2023 Pre-admission assessment Justyna Grijalva [facility] Start: 05-09-2023 End: 05-09-2023 Patient encounter procedure Ansley Carrero [facility] Start: 04-29-2023 End: 04-29-2023 Emergency department patient visit [facility] Start: 04-26-2023 End: 04-26-2023 Patient encounter procedure Myron Rust [facility] Start: 03-18-2023 End: 03-18-2023 Patient encounter procedure Myron Rust [facility] Start: 12-01-2022 End: 12-03-2022 [facility] on above: Fatigue, unspecified type; Screening, lipid Start: 11-26-2022 End: 11-26-2022 [facility] Start: 10-19-2022 ambulatory Facility:[id number] Start: 10-19-2022 End: 01-18-2023 Recurring Carmen Haley [facility] Start: 10-19-2022 End: 10-21-2022 Subsequent hospital visit by physician [facility] Additional Xray At [facility] Comment on above: Left hand weakness Weakness of both leg s Start: 10-14-2022 End: 10-15-2022 Emergency department patient visit Demetra Cruz MD Work Phone: [facility] Comment on above: Alcohol abuse (Prima ry Dx) Start: 10-13-2022 End: 10-13-2022 Subsequent hospital visit by physician Mulu Taylor CNP Work Phone: [facility] Start: 10-13-2022 End: 10-14-2022 Pre-admission assessment Carmen Haley [facility] Start: 10-06-2022 End: 10-06-2022 Lab Drop off Lupis SCHWARTZ [facility] Start: 10-06-2022 End: 10-06-2022 Patient encounter procedure Lupis SCHWARTZ [facility] [place] Start: 09-29-2022 End: 09-29-2022 Lab Drop off Carmen Haley [facility] Start: 09-29-2022 End: 09-30-2022 Pre-admission assessment Carmen Haley [facility] Start: 09-27-2022 End: 09-27-2022 Lab Drop off Myron Joy Rust [facility] [facility] Start: 09-27-2022 End: 09-27-2022 Patient encounter procedure Myron Rust [facility] Start: 09-24-2022 End: 09-24-2022 [facility] Start: 09-22-2022 End: 09-22-2022 Patient encounter procedure Carmen Haley [facility] Start: 09-13-2022 ambulatory Facility:U Start: 09-10-2022 End: 09-14-2022 Evaluation and management of inpatient Obaydah M Daromar Facility:[facility] Start: 09-10-2022 ambulatory Facility: [id number] Start: 09-10-2022 End: 09-14-2022 Evaluation and management of inpatient [facility] Work Phone: Start: 09-06-2022 End: 09-06-2022 Lab Drop off Lupis SCHWARTZ [facility] Start: 09-06-2022 End: 09-06-2022 Patient encounter [facility] Start: 08-27-2022 End: 08-27-2022 Subsequent hospital visit by physician Krysten Echo Room Irais Yarbrough [facility] ECHO Comment on above: Hypertension, unspec ified type; Bilateral leg edema Start: 08-20-2022 End: 08-20-2022 Lab Drop off Lupis SCHWARTZ [facility] Start: 08-20-2022 End: 08-20-2022 Patient encounter procedure Lupis SCHWARTZ [facility] Start: 12-30-2021 End: 12-30-2021 Patient encounter procedure Parish A JOANNE [facility] Start: 07-13-2021 End: 07-13-2021 Subsequent hospital visit by physician Case Parish RD, LD Work Phone: [facility] Diet and Nutrition Comment on above: Arrived Start: 07-09-2021 End: 07-09-2021 Subsequent hospital visit by physician [facility] Diabetes Education Work Phone: [id number] Diabetic Education Start: 07-02-2021 End: 07-02-2021 Subsequent hospital visit by physician [facility] Diabetes Education Work Phone: [facility] Diabetic Education Start: 05-21-2021 End: 05-23-2021 Subsequent hospital visit by physician [facility] Additional Xray At [facility] Radiology Comment on above: SOB (shortness of br eath); Obstructive sleep apnea (adult) (pediatric); Moderate persistent asthma without complication Start: 05-21-2021 End: 05-23-2021 Subsequent hospital visit by physician [facility] Pulmonary Function Rm [facility] PFT Comment on above: SOB (shortness of br eath); Obstructive sleep apnea syndrome; Moderate persistent asthma without complication; Tobacco abuse Start: 03-17-2020 End: 03-17-2020 Subsequent hospital visit by physician Glenn Malik Work Phone: [id number] Endoscopy Start: 03-17-2020 End: 03-17-2020 Subsequent hospital visit by physician [facility] Covid19 Pat Screening Schedule MW PRE ADMIT Comment on above: Arrived Start: 02-19-2020 End: 02-21-2020 Subsequent hospital visit by physician Paul Ultrasound Room [facility] Ultrasound Comment on above: Hypertrophy of uteru s; Right lower quadrant pain Start: 02-07-2020 End: 02-09-2020 Subsequent hospital visit by physician Krysten Cat Scan Room [facility] CT Scan Comment on above: RLQ abdominal pain Start: 09-07-2019 End: 09-07-2019 Subsequent hospital visit by physician Krysten Pulmonary Function Rm [facility] PFT Comment on above: SOB (shortness of br eath) Start: 09-06-2019 End: 09-08-2019 Subsequent hospital visit by physician Krysten Dig Rad 1 [facility] Comment on [...] Radex hip unilateral with pelvis 2-3 views Myronross Rebolledoant HEATER OPERATOR HELPER - BUFFER OPERATOR Work Phone: Start: 08-10-2023 Comprehensive metabo lic panel Myron Rebolledoant HEATER OPERATOR HELPER - BUFFER OPERATOR Work Phone: Start: 08-10-2023 Lipid panel Myron Fair nt HEATER OPERATOR HELPER - BUFFER OPERATOR Work Phone: Start: 08-10-2023 Urine albumin quantitative Myron Rust HEATER OPERATOR HELPER - BUFFER OPERATOR Work Phone: Start: 12-01-2022 Dup-scan xtr veins [...] Start: 10-13-2022 Creatine kinase total K althea Olveracortes HEATER OPERATOR HELPER - BUFFER OPERATOR Work Phone: Start: 09-10-2022 Respiratory Panel (PCR) DO Joo Ramos Work Phone: Start: 09-10-2022 Plain chest X-ray Start: 05-21-2021 Radiologic exam ches t 2 views Mulu Prafullesleemanasar HEATER OPERATOR HELPER - BUFFER OPERATOR Work Phone: Start: 03-17-2020 Nebulizer therapy Glenn P Helena Work Phone: Start: 03-17-2020 COVID-19 Cameron Todu faraz Work Phone: Start: 03-17-2020 Colonoscopy Mw Willshavon d Start: 03-17-2020 Colonoscopy Lupis BROW N Start: 02-19-2020 Us pelvic nonobstetr ic real-time image complete Mulu Prafullesleeiller Work Phone: Start: 02-07-2020 Ct abdomen & pelvis w/contrast material Mulu Prafullesleejose Work Phone: Start: 02-07-2020 Assay of urea [...] RSV VACCINE (1 - 1-dose 75+ series) [facility] Start: 04-10-2030 DTaP/Tdap/Td vaccine (3 - Td or Tdap) DTaP/Tdap/Td vaccine (3 - Td or Tdap) [facility] Start: 04-10-2030 Tetanus vaccination TETANUS [facility] Start: 03-17-2030 Screening for malignant neoplasm of colon [facility] Start: 11-16-2027 Pneumococcal 0-64 years Vaccine (2 of 2 - PPSV23) Pneumococcal 0-64 years Vaccine (2 of 2 - PPSV23) [facility] Start: 11-07-2024 End: 11-07-2025 B12/folate level B12 & FOLATE Lab Routine Gastroesophageal reflux disease, unspecified whether esophagitis present Morbid obesity with BMI of 50.0-59.9, adult BRENDA (obstructive sleep apnea) Type 2 diabetes mellitus without complication, without long-term current use of insulin Expected: 11/07/2024, Expires: 11/07/2025 [facility] Comment on above: Expected: 11/07/2024, Expires: Start: 11-07-2024 End: 11-07-2025 Basic metabolic 2000 panel - Serum or Plasma BASIC METABOLIC PANEL Lab Routine Gastroesophageal reflux disease, unspecified whether esophagitis present Morbid obesity with BMI of 50.0-59.9, adult BRENDA (obstructive sleep apnea) Type 2 diabetes mellitus without complication, without long-term current use of insulin Expected: 11/07/2024, Expires: 11/07/2025 [facility] Comment on above: Expected: 11/07/2024, Expires: Start: 11-07-2024 End: 11-07-2025 CBC,PLATELETS CBC,PLATELETS Lab Routine Gastroesophageal reflux disease, unspecified whether esophagitis present Morbid obesity with BMI of 50.0-59.9, adult BRENDA (obstructive sleep apnea) Type 2 diabetes mellitus without complication, without long-term current use of insulin Expected: 11/07/2024, Expires: 11/07/2025 [facility] Comment on above: Expected: 11/07/2024, Expires: Start: 11-07-2024 End: 11-07-2025 DIAGNOSTIC UPPER ENDOSCOPY DIAGNOSTIC UPPER ENDOSCOPY GI/Bronch Routine Gastroesophageal reflux disease, unspecified whether esophagitis present Expected: 11/07/2024, Expires: 11/07/2025 [facility] Comment on above: Expected: 11/07/2024, Expires: Start: 11-07-2024 End: 11-07-2025 Ferritin [Mass/volume] in Serum or Plasma FERRITIN Lab Routine Gastroesophageal reflux disease, unspecified whether esophagitis present Morbid obesity with BMI of 50.0-59.9, adult BRENDA (obstructive sleep apnea) Type 2 diabetes mellitus without complication, without long-term current use of insulin Expected: 11/07/2024, Expires: 11/07/2025 [facility] Comment on above: Expected: 11/07/2024, Expires: Start: 11-07-2024 End: 11-07-2025 Hemoglobin A1c/Hemoglobin.total in Blood HEMOGLOBIN A1C Lab Routine Gastroesophageal reflux disease, unspecified whether esophagitis present Morbid obesity with BMI of 50.0-59.9, adult BRENDA (obstructive sleep apnea) Type 2 diabetes mellitus without complication, without long-term current use of insulin Expected: 11/07/2024, Expires: 11/07/2025 [facility] Comment on above: Expected: 11/07/2024, Expires: Start: 11-07-2024 End: 11-07-2025 Hepatic function 2000 panel - Serum or Plasma HEPATIC FUNCTION PANEL Lab Routine Gastroesophageal reflux disease, unspecified whether esophagitis present Morbid obesity with BMI of 50.0-59.9, adult BRENDA (obstructive sleep apnea) Type 2 diabetes mellitus without complication, without long-term current use of insulin Expected: 11/07/2024, Expires: 11/07/2025 [facility] Comment on above: Expected: 11/07/2024, Expires: Start: 11-07-2024 End: 11-07-2025 IRON/IRON BINDING/TRANSFERRIN IRON/IRON BINDING/TRANSFERRIN Lab Routine Gastroesophageal reflux disease, unspecified whether esophagitis present Morbid obesity with BMI of 50.0-59.9, adult BRENDA (obstructive sleep apnea) Type 2 diabetes mellitus without complication, without long-term current use of insulin Expected: 11/07/2024, Expires: 11/07/2025 [facility] Comment on above: Expected: 11/07/2024, Expires: Start: 11-07-2024 End: 11-07-2025 LIPID PANEL W CALCULATED LDL LIPID PANEL W CALCULATED LDL Lab Routine Gastroesophageal reflux disease, unspecified whether esophagitis present Morbid obesity with BMI of 50.0-59.9, adult BRENDA (obstructive sleep apnea) Type 2 diabetes mellitus without complication, without long-term current use of insulin Expected: 11/07/2024, Expires: 11/07/2025 [facility] Comment on above: Expected: 11/07/2024, Expires: Start: 11-07-2024 End: 11-07-2025 Magnesium [Mass/volume] in Serum or Plasma MAGNESIUM Lab Routine Gastroesophageal reflux disease, unspecified whether esophagitis present Morbid obesity with BMI of 50.0-59.9, adult BRENDA (obstructive sleep apnea) Type 2 diabetes mellitus without complication, without long-term current use of insulin Expected: 11/07/2024, Expires: 11/07/2025 [facility] Comment on above: Expected: 11/07/2024, Expires: Start: 11-07-2024 End: 11-07-2025 PHOSPHATE, INORGANIC PHOSPHATE, INORGANIC Lab Routine Gastroesophageal reflux disease, unspecified whether esophagitis present Morbid obesity with BMI of 50.0-59.9, adult BRENDA (obstructive sleep apnea) Type 2 diabetes mellitus without complication, without long-term current use of insulin Expected: 11/07/2024, Expires: 11/07/2025 [facility] Comment on above: Expected: 11/07/2024, Expires: Start: 11-07-2024 End: 11-07-2025 PROTIME-INR PROTIME-INR Lab Routine Gastroesophageal reflux disease, unspecified whether esophagitis present Morbid obesity with BMI of 50.0-59.9, adult BRENDA (obstructive sleep apnea) Type 2 diabetes mellitus without complication, without long-term current use of insulin Expected: 11/07/2024, Expires: 11/07/2025 [facility] Comment on above: Expected: 11/07/2024, Expires: Start: 11-07-2024 End: 11-07-2025 PTH INTACT PTH INTACT Lab Routine Gastroesophageal reflux disease, unspecified whether esophagitis present Morbid obesity with BMI of 50.0-59.9, adult BRENDA (obstructive sleep apnea) Type 2 diabetes mellitus without complication, without long-term current use of insulin Expected: 11/07/2024, Expires: 11/07/2025 [facility] Comment on above: Expected: 11/07/2024, Expires: Start: 11-07-2024 End: 11-07-2025 TSH W/FT4 REFLEX TSH W/FT4 REFLEX Lab Routine Gastroesophageal reflux disease, unspecified whether esophagitis present Morbid obesity with BMI of 50.0-59.9, adult BRENDA (obstructive sleep apnea) Type 2 diabetes mellitus without complication, without long-term current use of insulin Expected: 11/07/2024, Expires: 11/07/2025 [facility] Comment on above: Expected: 11/07/2024, Expires: Start: 11-07-2024 End: 11-07-2025 VITAMIN D (25-HYDROXY,TOTAL) VITAMIN D (25-HYDROXY,TOTAL) Lab Routine Gastroesophageal reflux disease, unspecified whether esophagitis present Morbid obesity with BMI of 50.0-59.9, adult BRENDA (obstructive sleep apnea) Type 2 diabetes mellitus without complication, without long-term current use of insulin Expected: 11/07/2024, Expires: 11/07/2025 [facility] Comment on above: Expected: 11/07/2024, Expires: Start: 10-27-2024 DTaP/Tdap/Td vaccine (2 - Td) DTaP/Tdap/Td vaccine (2 - Td) [place], [place] Start: 03-04-2024 COVID-19 VACCINE ( season) COVID-19 VACCINE ( season) [facility] Start: 07-21-2023 End: 07-21-2023 Patient encounter procedure 07/21/2023 10:30 AM EST Appointment [facility] [address] [place] [address] Arlene Dikcens [facility]ir [facility] Comment on above: [facility]ir [facility] Start: 07-19-2023 End: 07-19-2023 Patient encounter procedure 07/19/2023 10:30 AM EST Appointment [facility] [address] [place] [address] Ana Blank, PT [facility] Comment on above: [facility] Start: 07-14-2023 End: 07-14-2023 Patient encounter procedure 07/14/2023 10:30 AM EST Appointment [facility] [address] [place] [address] Arlene Dickens [facility] D[facility]-Mihir Meg[facility] Comment on above: [facility] DDD-Mihir Meghan Start: 07-11-2023 End: 07-11-2023 Patient encounter procedure 07/11/2023 10:30 AM EST Appointment [facility] [address] [place] [address] Ana Blank, PT [facility] D[facility]-Mihir Meg[facility] Comment on above: [facility] DDD-Mihir Meghan Start: 12-15-2022 End: 12-15-2022 Patient encounter procedure 12/15/2022 Office Visit Gastroenterology Racheal Braden, HEATER OPERATOR HELPER - BUFFER OPERATOR [address] [address] [facility] Gastroenterology Start: 2022 Respiratory Syncytial Virus (RSV) or age 60 yrs+ (1 - 1-dose 60+ series) Respiratory Syncytial Virus (RSV) or age 60 yrs+ (1 - 1-dose 60+ series) [facility] Start: 10-26-2022 End: 10-26-2022 Patient encounter procedure 10/26/2022 Office Visit Cardiology Joselito Hsu MD [address] [place] [address] [facility] Process Validation Engineer Start: 09-14-[address] [facility] Start: 09-11-2022 Comprehensive metabolic 2000 panel - Serum or Plasma [facility] Start: 09-11-[address] [facility] Start: 09-10-[address] [facility] Start: 09-10-[address] [facility] Start: 09-10-2022 Referral to Serials Librarian [facility] Start: 09-10-2022 End: 09-10-[address] [facility] Start: 09-10-[address] [facility] Start: 09-10-[address] [facility] Start: 09-08-2021 End: 09-08-2021 Patient encounter procedure 09/08/2021 Appointment Diabetes Services [facility] Diabetic Education Start: 07-13-2021 End: 07-13-2021 Patient encounter procedure 07/13/2021 Appointment IP Unit Case Parish RD, LD [facility] Diet and Nutrition Start: 07-09-2021 End: 07-09-2021 Patient encounter procedure 07/09/2021 Appointment Diabetes Services [facility] Diabetic Education Start: 07-06-2021 End: 07-06-2021 Patient encounter procedure 07/06/2021 Appointment IP Unit Case Parish RD, LD [facility] Diet and Nutrition Start: 04-10-2021 Pneumococcal 0-64 years Vaccine (2 - PCV) Pneumococcal 0-64 years Vaccine (2 - PCV) [facility] Start: 04-10-2021 Pneumococcal vaccination PNEUMOCOCCAL VACCINE SERIES (2 of 2 - PCV) [facility] Start: 04-07-2021 COVID-19 Vaccine (3 - Booster for Pfizer series) COVID-19 Vaccine (3 - Booster for Pfizer series) [facility] Start: 02-06-2021 Creatinine measurement Creatinine monitoring [facility] Start: 09-29-2020 Breast cancer screen Breast cancer screen [place], [place] Start: 09-29-2020 Screening for malignant neoplasm of breast Breast cancer screen [facility] Start: 09-05-2020 A1C test (Diabetic or Prediabetic) A1C test (Diabetic or Prediabetic) [place] Start: 09-05-2020 Creatinine monitoring Creatinine monitoring [place], [place] Start: 09-05-2020 HbA1c (Bld) [Mass fraction] A1C test (Diabetic or Prediabetic) [place] Start: 09-05-2020 Hemoglobin A1c measurement A1C test (Diabetic or Prediabetic) [facility] Start: 09-05-2020 Lipid panel [facility] Start: 09-05-2020 Lipid screen Lipid screen [place], [place] Start: 09-05-2020 Potassium monitoring Potassium monitoring [facility] Start: 09-03-2020 Shingles Vaccine (2 of 3) Shingles Vaccine (2 of 3) [facility] Start: 09-03-2020 Shingles vaccine (3 of 3) Shingles vaccine (3 of 3) [facility] Start: 03-31-2020 End: 03-31-2020 Office Visit 03/31/2020 Office Visit General Surgery Glenn Malik MD [address] [place] [address] [facility] Director Of Officiating [facility] Start: 03-04-2020 Influenza vaccination Flu vaccine (#1) [place], [place] Start: 02-28-2020 End: 02-28-2020 Office Visit 02/28/2020 Office Visit General Surgery Glenn Malik MD [address] [place] [address] [facility] Director Of Officiating [facility] Start: 09-30-2019 Screening for malignant neoplasm of breast MAMMOGRAM SCREENING DISCUSSION [facility] Start: 09-07-2019 End: 09-07-2019 Appointment 09/07/2019 Appointment Pulmonary Function Testing [facility] Start: 06-19-2019 Creatinine monitoring Creatinine monitoring [place], [place] Start: 06-19-2019 Potassium monitoring Potassium monitoring [place], [place] Start: 2012 Colon cancer screen colonoscopy Colon cancer screen colonoscopy [place], [place] Start: 2012 Screening for malignant neoplasm of colon Colon cancer screen colonoscopy [place], [place] Start: 2012 Shingles Vaccine (1 of 2) Shingles Vaccine (1 of 2) [place] Start: 11-16-2007 Screening for malignant neoplasm of colon [facility] Start: 2002 Lipid panel LIPID SCREENING [facility] Start: 1992 Screening for malignant neoplasm of cervix [facility] Start: 11-16-1983 Cervical cancer screen Cervical cancer screen [place], [place] Start: 11-16-1983 Screening for malignant neoplasm of cervix [facility] Start: 1980 Hepatitis C screening Hepatitis C screen [facility] Start: 1977 HIV screen HIV screen [place], [place] Start: 1977 HIV screening [facility] Start: 1974 Depression Screen Depression Screen [facility] Start: 1972 Lipid screen Lipid screen [place], [place] Start: 1962 Hepatitis C screen [facility] screen [facility] Start: 1962 Hepatitis C screening [facility] [employer] Calculated LDL cholesterol level [facility] End: 03-17-2020 CEA CEA Lab Routine One Time for 1 Occurrences starting 03/17/2020 until 03/17/2020 [facility] Comment on above: One Time for 1 Occurrences starting 03/04 until 03/17/2020 CEA CEA Lab Routine 03/17/2020 12:00 PM EDT [facility] Cholesterol.total/Ch ol esterol in HDL [Mass Ratio] in Serum or Plasma [facility] End: 08-27-2022 Echocardiogram complete Echocardiogram complete Echocardiography Routine Hypertension, unspecified type Bilateral leg edema 1 Occurrences starting 08/27/2022 until 08/27/2022 [place] [employer] Phone: Comment on above: 1 Occurrences starting 08/27/2022 until 08/27/2022 EKG 12 Lead EKG 12 Lead ECG Routine Syncope and collapse Pre-operative clearance Essential hypertension Hyperlipidemia, unspecified hyperlipidemia type Vitamin D deficiency 09/06/2019 11:05 AM EST [facility] 12 Lead EKG 12 Lead ECG STAT 10/14/2022 9:44 PM EDT [employer] Phone: End: 09-07-2019 Full PFT Study With Bronchodilator Full PFT Study With Bronchodilator PFT Routine SOB (shortness of breath) 1 Occurrences starting 09/07/2019 until 09/07/2019 [facility] Comment on above: 1 Occurrences starting 09/07/2019 until 09/07/2019 End: 05-21-2021 Full PFT Study With Bronchodilator Full PFT Study With Bronchodilator PFT Routine SOB (shortness of breath) Obstructive sleep apnea syndrome Moderate persistent asthma without complication Tobacco abuse 1 Occurrences starting 05/21/2021 until 05/21/2021 [employer] Phone: Comment on above: 1 Occurrences starting 05/21/2021 until 05/21/2021 Glucose measurement estimated from glycated hemoglobin [facility]YLORI [facility] Comment on above: Release Upon Ordering for 1 Occurrences starting 03/17/2020 Hemoglobin A1c/Hemoglobin.total in Blood [facility] End: 08-10-2023 Hemoglobin A1c/Hemoglobin.total in Blood [employer] Work Phone: Comment on above: Once for 1 Occurrences starting 08/10/19 until 08/10/2023 Oxygen therapy [Minimum Data Set] Initiate Oxygen Therapy Protocol Respiratory Care Routine Daily until discontinued starting 03/17/2020 [facility] Comment on above: Daily until discontinued starting 2019 End: 10-14-2022 Oxygen therapy [Minimum Data Set] Initiate Oxygen Therapy Protocol Respiratory Care STAT One Time for 1 Occurrences starting 10/14/2022 until 10/14/2022 [employer] Work Phone: Comment on above: One Time for 1 Occurrences starting 10/02 until 10/14/2022 Patient Education Heart Failure, Adult (DC) [facility] Work Phone: End: 08-10-2023 Patient Fasting? PAYMEY [facility] Comment on above: Once for 1 Occurrences starting 08/10/19 until 08/10/2023 Patient referral [facility] Work Phone: Surgical Pathology Surgical Path ology Lab Routine Release Upon Ordering for 1 Occurrences starting 03/17/2020 [facility] Comment on above: Release Upon Ordering for 1 Occurrences starting 03/17/2020 End: 02-19-2020 US NON OB TRANSVAGINAL US NON OB TRANSVAGINAL Imaging Routine Hypertrophy of uterus Right lower quadrant pain 1 Occurrences starting 02/19/2020 until 02/19/2020 [facility] Comment on above: 1 Occurrences starting 02/19/2020 until 02/19/2020 US NON OB TRANSVAGINAL US NON OB TRANSVAGINAL Imaging Routine Hypertrophy of uterus Right lower quadrant pain 02/19/2020 2:36 PM EDT [facility] VLDL cholesterol measurement [facility] XR Lumbar spine Views [facility] Immunizations Immunization Date Immunization Notes Care Provider Fa cility 07-11-2024 influenza, seasonal, injectable, preservative free; Translations: [Fluzone TIV PF ] Myron Rust [facility] 03-18-2023 influenza, injectabl e, quadrivalent, preservative free Myron Rust [facility] 05-11-2022 influenza virus vaccine, unspecified formulation Lupis SCHWARTZ [facility] 05-11-2022 SARS-CoV-2 (COVID-19 ) [id number] Lupis SCHWARTZ [facility] 12-15-2021 COVID-19 mRNA, Comirnaty (Pfizer) [facility] 12-15-2021 SARS-CoV-2 mRNA ([id number] se) vaccine Lupis SCHWARTZ [facility] 06-12-2021 SARS-CoV-2 (COVID-19 ) mRNA BNT-162b2 vax Lupis SCHWARTZ [facility] 05-05-2021 influenza virus vaccine, unspecified formulation Lupis SCHWARTZ [facility] 10-06-2020 SARS-CoV-2 (COVID-19 ) mRNA BNT-162b2 [employer] Lupis Blurtt [facility] 09-16-2020 SARS-CoV-2 (COVID-19 ) mRNA BNT-162b2 [employer] Lupis Blurtt [facility] 07-09-2020 zoster vaccine, live Parish CALZADA [facility] 04-10-2020 influenza virus vaccine, unspecified formulation Parish RUBIO [facility] 04-10-2020 pneumococcal polysaccharide vaccine, 23 valent Parish RUBIO [facility] 04-10-2020 tetanus toxoid, unspecified formulation Parish RUBIO [facility] [place] 04-10-2020 zoster vaccine, live Parish Machado YNCH [facility] 05-08-2019 influenza virus vaccine, unspecified formulation Parish RUBIO [facility] 04-24-2018 influenza virus vaccine, unspecified formulation Parish RUBIO [facility] 03-19-2018 influenza virus vaccine, unspecified formulation [facility] 12-16-2017 pneumococcal polysaccharide vaccine, 23 valent Lupis SCHWARTZ [facility] [place] 10-27-2014 tetanus toxoid, redu karen diphtheria toxoid, and acellular pertussis vaccine, adsorbed Lupis SCHWARTZ [facility] [place] Payers Date Payer Category Payer Medicaid (Managed Care) [facility] [id number] 2024 Medicaid [id number] 2023 Private Health Insurance 2022 Self-pay 2017 Private Health Insurance [facility] xxxxxxxxx 2017-Present [phone] [address] [place] [address] xxxxxxxxx [id number]. [id number] 2017 Private Health Insurance [id number] 1.2.840.352488.1.13.239.2. [id number] 2017 Private Health Insurance [id number] 1.2.840.587393.1.13.239.2. [id number] 1962 Unknown [id number] 2.16.840.1.998452.3.579.2. 356 1962 Unknown [id number] 2.16.840.1.478832.3.579.2. 356 1962 Unknown [id number] 2.16.840.1.164861.3.579.2. 173 1962 Unknown [id number] 2.16.840.1.532617.3.579.2. 174 1962 Unknown [id number] 2.16.840.1.088484.3.579.2. 174 1962 Unknown [id number] 2.16.840.1.301900.3.579.2. 174 1962 Unknown [id number] 2.16.840.1.728808.3.579.2. 174 1962 Unknown [id number] 2.16.840.1.066053.3.579.2. 174 1962 Unknown [id number] 2.16.840.1.372594.3.579.2. 174 1962 Unknown [id number] 2.16.840.1.553814.3.579.2. 174 1962 Unknown [id number] 2.16.840.1.648494.3.579.2. 174 1962 Unknown [id number] 2.16.840.1.767542.3.579.2. 174 1962 Unknown [id number] 2.16.840.1.633040.3.579.2. 174 1962 Unknown [id number] 2.16.840.1.862091.3.579.2. 1962 Unknown [id number] 2.16.840.1.810142.3.579.2. 1962 Unknown [id number] 2.16.840.1.817110.3.579.2. 1962 Unknown [id number] 2.16.840.1.484521.3.579.2. 1962 Unknown [id number] 2.16.840.1.569907.3.579.2 1962 Unknown [id number] 2.16.840.1.543289.3.579.2. 1962 Unknown [id number] 2.16.840.1.186285.3.579.2 1962 Unknown [id number] 2.16.840.1.119013.3.579.2 1962 Unknown [id number] 2.16.840.1.272250.3.579.2 1962 Unknown [id number] 2.16.840.1.132276.3.579.2 1962 Unknown [id number] 2.16.840.1.477134.3.579.2 1962 Unknown [id number] 2.16.840.1.493013.3.579.2 1962 Unknown [id number] 2.16.840.1.033064.3.579.2 1962 Unknown [id number] 2.16.840.1.077495.3.579.2 1962 Unknown [id number] 2.16.840.1.303140.3.579.2 1962 Unknown [id number] 2.16.840.1.245731.3.579. 1962 Unknown [id number] 2.16.840.1.983564.3.579.2 1962 Unknown [id number] 2.16.840.1.005252.3.579. 1962 Unknown [id number] 2.16.840.1.661048.3.579. 1962 Unknown [id number] 2.16.840.1.563737.3.579. 1962 Unknown [id number] 2.16.840.1.965128.3.579. 1962 Unknown [id number] 2.16.840.1.902705.3.579. 1962 Unknown [id number] 2.16.840.1.669732.3.579. 1962 Unknown [id number] 2.16.840.1.226938.3.579. 1962 Unknown [id number] 2.16.840.1.066091.3.579.2 1962 Unknown [id number] 2.16.840.1.924001.3.579. 1962 Unknown [id number] 2.16.840.1.997726.3.579. 1962 Unknown [id number] 2.16.840.1.389911.3.579. 1962 Unknown [id number] 2.16.840.1.967124.3.579.2. 1962 Unknown [id number] 2.16.840.1.102821.3.579.2. 1962 Unknown [id number] 2.16.840.1.502020.3.579.2. 1962 Unknown [id number] 2.16.840.1.785163.3.579.2. 1962 Unknown [id number] 2.16.840.1.098433.3.579.2. 1962 Unknown [id number] 2.16.840.1.186127.3.579.2 1962 Unknown [id number] 2.16.840.1.752504.3.579.2. 1962 Unknown [id number] 2.16.840.1.757178.3.579.2. 1962 Unknown [id number] 2.16.840.1.632044.3.579.2. 3 1962 Unknown [id number] 2.16.840.1.691260.3.579.2 1962 Unknown [id number] 2.16.840.1.679142.3.579.2. 1962 Unknown [id number] 2.16.840.1.807950.3.579.2. 1962 Unknown [id number] 2.16.840.1.932733.3.579.2. 1962 Unknown [id number] 2.16.840.1.332593.3.579.2. 1962 Unknown [id number] 2.16.840.1.416302.3.579.2. 1962 Unknown [id number] 2.16.840.1.580601.3.579.2. 1962 Unknown [id number] 2.16.840.1.064698.3.579.2. 196 1962 Unknown [id number] 2.16.840.1.701611.3.579.2. 727 1962 Unknown [id number] 2.16.840.1.387895.3.579.2. 727 1962 Unknown [id number] 2.16.840.1.571838.3.579.2. 727 1962 Unknown [id number] 2.16.840.1.047189.3.579.2. 727 1962 Unknown [id number] 2.16.840.1.570245.3.579.2. 727 Unknown [id number] 2.16.840.1.588644.3.579.2. 531 Social History Date Type Detail Facility Start: 09-06-2019 End: 09-10-2022 Tobacco smoking status NHIS Current every day smoker [place], [place] Start: 07-04-1979 History of tobacco use Cigarette Smo ker [place] Start: 09-06-2019 End: 11-07-2024 Cigarettes smoked current (pack per day) - Reported [place] Start: 09-06-2019 End: 11-07-2024 Alcohol intake Current drinker of alcohol (finding) [place] Start: 02-23-2018 Tobacco Comment 5 cigarettes/day [place], [place] Start: 02-23-2018 Alcohol Comment occas. Irais Thurman [place], [place] Start: 1960 Sex Assigned At Not on file [place] Start: 09-06-2019 End: 11-07-2024 Tobacco use and exposure Never used [place] Start: 10-04-2022 End: 10-14-2022 Exposure to SARS-CoV-2 (event) Not sure [place] Start: 12-30-2021 End: 04-09-2025 Tobacco smoking status Heavy tobacco smoker (finding) [facility] [place] [facility] [place] Start: 10-14-2022 End: 11-07-2024 Sex Assigned At Female Cec[facility] [place] Start: 09-10-2022 End: 09-10-2022 Tobacco smoking status NHIS Smoker (finding) [facility] Start: 1960 Sex Assigned At Female F [facility] Start: 10-15-2022 History SDOH Alcohol Frequency 2 Zhilian Zhaopin Work Phone: Start: 10-15-2022 History SDOH Alcohol Std Drinks 5 Zhilian Zhaopin Work Phone: Start: 10-15-2022 History SDOH Alcohol Binge 4 Zhilian Zhaopin Work Phone: Start: 10-14-2022 Alcohol Comment patient had 2 bottles of rum today Zhilian Zhaopin Work Phone: How often to you hav e a drink containing alcohol? Monthly or less Zhilian Zhaopin How many standard drinks containing alcohol do you have on a typical day? 10 or more Zhilian Zhaopin How often do you hav e 6 or more drinks on 1 occasion? Weekly Zhilian Zhaopin Start: 11-07-2024 Alcohol Comment occasionally [employer] Start: 11-08-2016 End: 09-28-2024 Sex Female (finding) [facility] Sexual Orientation [facility] [place] Medical Equipment Procedure Code Equipment Code Equipment Origin al Text Equipment Identifier Dates Cement Smartghv W/ Gent 40gr Must Order 20ea [id number] Start: 03-15-2018 Cement Smartghv W/ Gent 40gr Must Order 20ea [id number] Start: 03-15-2018 Cement Smartghv W/ Gent 40gr Must Order 20ea [id number] Start: 04-26-2018 Impl Knee Patell a Asym [id number] Start: 04-26-2018 Lancets, See Instructions, 300 [...] check BS daily dx E11.9, [facility][id number], Supply, 163, cm, 12/30/21 11:09:00 EDT, Height/Length Dosing, 154, kg, 12/30/21 11:09:00 EDT, Weight Dosing Start: 04-13-2022 Test Strips, See Instructions, 100 EA, 3, Use to test BS daily dx E11.9, [facility] #[id number], Supply, 163, cm, 12/30/21 11:09:00 EDT, Height/Length Dosing, 154, kg, 12/30/21 11:09:00 EDT, Weight Dosing Start: 04-13-2022 Lancets, See Instructions, 100 EA, 3, Use to check BS daily dx E11.9, [facility] #[id number], Supply, 163, cm, 12/30/21 11:09:00 EDT, Height/Length Dosing, 154, kg, 12/30/21 11:09:00 EDT, Weight Dosing Start: 04-13-2022 Test Strips, See Instructions, 100 EA, 3, Use to test BS daily dx E11.9, [facility] #[id number], Supply, 163, cm, 12/30/21 11:09:00 EDT, Height/Length Dosing, 154, kg, 12/30/21 11:09:00 EDT, Weight Dosing Start: 04-13-2022 Lancets, See Instructions, 100 EA, 3, Use to check BS daily dx E11.9, [facility] #[id number], Supply, 163, cm, 12/30/21 11:09:00 EDT, Height/Length Dosing, 154, kg, 12/30/21 11:09:00 EDT, Weight Dosing Start: 04-13-2022 Test Strips, See Instructions, 100 EA, 3, Use to test BS daily dx E11.9, [facility] #[id number], Supply, 163, cm, 12/30/21 11:09:00 EDT, Height/Length Dosing, 154, kg, 12/30/21 11:09:00 EDT, Weight Dosing Start: 04-13-2022 Lancets, See Instructions, 100 EA, 3, Use to check BS daily dx E11.9, [facility] #[id number], Supply, 163, cm, 12/30/21 11:09:00 EDT, Height/Length Dosing, 154, kg, 12/30/21 11:09:00 EDT, Weight Dosing Start: 04-13-2022 Test Strips, See Instructions, 100 EA, 3, Use to test BS daily dx E11.9, [facility] #[id number], Supply, 163, cm, 12/30/21 11:09:00 EDT, Height/Length Dosing, 154, kg, 12/30/21 11:09:00 EDT, Weight Dosing Start: 04-13-2022 Lancets, See Instructions, 100 EA, 3, Use to check BS daily dx E11.9, [facility] #[id number], Supply, 163, cm, 12/30/21 11:09:00 EDT, Height/Length Dosing, 154, kg, 12/30/21 11:09:00 EDT, Weight Dosing Start: 04-13-2022 Test Strips, See Instructions, 100 EA, 3, Use to test BS daily dx E11.9, [facility] #[id number], Supply, 163, cm, 12/30/21 11:09:00 EDT, Height/Length Dosing, 154, kg, 12/30/21 11:09:00 EDT, Weight Dosing Start: 04-13-2022 Lancets, See Instructions, 100 EA, 3, Use to check BS daily dx E11.9, [facility] #[id number], Supply, 163, cm, 12/30/21 11:09:00 EDT, Height/Length Dosing, 154, kg, 12/30/21 11:09:00 EDT, Weight Dosing Start: 04-13-2022 Test Strips, See Instructions, 100 EA, 3, Use to test BS daily dx E11.9, [facility] #[id number], Supply, 163, cm, 12/30/21 11:09:00 EDT, Height/Length Dosing, 154, kg, 12/30/21 11:09:00 EDT, Weight Dosing Start: 04-13-2022 Lancets, See Instructions, 100 EA, 3, Use to check BS daily dx E11.9, [facility] #[id number], Supply, 163, cm, 12/30/21 11:09:00 EDT, Height/Length Dosing, 154, kg, 12/30/21 11:09:00 EDT, Weight Dosing Start: 04-13-2022 Test Strips, See Instructions, 100 EA, 3, Use to test BS daily dx E11.9, [facility] #[id number], Supply, 163, cm, 12/30/21 11:09:00 EDT, Height/Length Dosing, 154, kg, 12/30/21 11:09:00 EDT, Weight Dosing Start: 04-13-2022 Lancets, See Instructions, 100 EA, 3, Use to check BS daily dx E11.9, [facility] #[id number], Supply, 163, cm, 12/30/21 11:09:00 EDT, Height/Length Dosing, 154, kg, 12/30/21 11:09:00 EDT, Weight Dosing Start: 04-13-2022 Test Strips, See Instructions, 100 EA, 3, Use to test BS daily dx E11.9, [facility] #[id number], Supply, 163, cm, 12/30/21 11:09:00 EDT, Height/Length Dosing, 154, kg, 12/30/21 11:09:00 EDT, Weight Dosing Start: 04-13-2022 Lancets, See Instructions, 100 EA, 3, Use to check BS daily dx E11.9, [facility] #[id number], Supply, 163, cm, 12/30/21 11:09:00 EDT, Height/Length Dosing, 154, kg, 12/30/21 11:09:00 EDT, Weight Dosing Start: 04-13-2022 Test Strips, See Instructions, 100 EA, 3, Use to test BS daily dx E11.9, [facility] #[id number], Supply, 163, cm, 12/30/21 11:09:00 EDT, Height/Length Dosing, 154, kg, 12/30/21 11:09:00 EDT, Weight Dosing Start: 04-13-2022 Lancets, See Instructions, 100 EA, 3, Use to check BS daily dx E11.9, [facility] #[id number], Supply, 163, cm, 12/30/21 11:09:00 EDT, Height/Length Dosing, 154, kg, 12/30/21 11:09:00 EDT, Weight Dosing Start: 04-13-2022 Test Strips, See Instructions, 100 EA, 3, Use to test BS daily dx E11.9, [facility] #[id number], Supply, 163, cm, 12/30/21 11:09:00 EDT, Height/Length Dosing, 154, kg, 12/30/21 11:09:00 EDT, Weight Dosing Start: 04-13-2022 Lancets, See Instructions, 100 EA, 3, Use to check BS daily dx E11.9, [facility] #[id number], Supply, 163, cm, 12/30/21 11:09:00 EDT, Height/Length Dosing, 154, kg, 12/30/21 11:09:00 EDT, Weight Dosing Start: 04-13-2022 Test Strips, See Instructions, 100 EA, 3, Use to test BS daily dx E11.9, [facility] #[id number], Supply, 163, cm, 12/30/21 11:09:00 EDT, Height/Length Dosing, 154, kg, 12/30/21 11:09:00 EDT, Weight Dosing Start: 04-13-2022 Lancets, See Instructions, 100 EA, 3, Use to check BS daily dx E11.9, [facility] #[id number], Supply, 163, cm, 12/30/21 11:09:00 EDT, Height/Length Dosing, 154, kg, 12/30/21 11:09:00 EDT, Weight Dosing Start: 04-13-2022 Test Strips, See Instructions, 100 EA, 3, Use to test BS daily dx E11.9, [facility] #[id number], Supply, 163, cm, 12/30/21 11:09:00 EDT, Height/Length Dosing, 154, kg, 12/30/21 11:09:00 EDT, Weight Dosing Start: 04-13-2022 Lancets, See Instructions, 100 EA, 3, Use to check BS daily dx E11.9, [facility] #[id number], Supply, 163, cm, 12/30/21 11:09:00 EDT, Height/Length Dosing, 154, kg, 12/30/21 11:09:00 EDT, Weight Dosing Start: 04-13-2022 Test Strips, See Instructions, 100 EA, 3, Use to test BS daily dx E11.9, [facility] #[id number], Supply, 163, cm, 12/30/21 11:09:00 EDT, Height/Length Dosing, 154, kg, 12/30/21 11:09:00 EDT, Weight Dosing Start: 04-13-2022 Lancets, See Instructions, 100 EA, 3, Use to check BS daily dx E11.9, [facility] #[id number], Supply, 163, cm, 12/30/21 11:09:00 EDT, Height/Length Dosing, 154, kg, 12/30/21 11:09:00 EDT, Weight Dosing Start: 04-13-2022 Test Strips, See Instructions, 100 EA, 3, Use to test BS daily dx E11.9, [facility] #[id number], Supply, 163, cm, 12/30/21 11:09:00 EDT, Height/Length Dosing, 154, kg, 12/30/21 11:09:00 EDT, Weight Dosing Start: 04-13-2022 Lancets, See Instructions, 100 EA, 3, Use to check BS daily dx E11.9, [facility] #[id number], Supply, 163, cm, 12/30/21 11:09:00 EDT, Height/Length Dosing, 154, kg, 12/30/21 11:09:00 EDT, Weight Dosing Start: 04-13-2022 Test Strips, See Instructions, 100 EA, 3, Use to test BS daily, [facility] #[id number], Supply, 167.5, cm, 10/18/22 13:30:00 EDT, Height/Length Dosing, 147, kg, 10/18/22 13:30:00 EDT, Weight Dosing Start: 10-19-2022 Lancets, See Instructions, 100 EA, 3, Use to check BS daily dx E11.9, [facility] #[id number], Supply, 163, cm, 12/30/21 11:09:00 EDT, Height/Length Dosing, 154, kg, 12/30/21 11:09:00 EDT, Weight Dosing Start: 04-13-2022 Test Strips, See Instructions, 100 EA, 3, Use to test BS daily, [facility] #[id number], Supply, 167.5, cm, 10/18/22 13:30:00 EDT, Height/Length Dosing, 147, kg, 10/18/22 13:30:00 EDT, Weight Dosing Start: 10-19-2022 Lancets, See Instructions, 100 EA, 3, Use to check BS daily dx E11.9, [facility] #[id number], Supply, 163, cm, 12/30/21 11:09:00 EDT, Height/Length Dosing, 154, kg, 12/30/21 11:09:00 EDT, Weight Dosing Start: 04-13-2022 Test Strips, See Instructions, 100 EA, 3, Use to test BS daily, [facility] #[id number], Supply, 167.5, cm, 10/18/22 13:30:00 EDT, Height/Length Dosing, 147, kg, 10/18/22 13:30:00 EDT, Weight Dosing Start: 10-19-2022 Lancets, See Instructions, 100 EA, 3, Use to check BS daily dx E11.9, [facility] #[id number], Supply, 163, cm, 12/30/21 11:09:00 EDT, Height/Length Dosing, 154, kg, 12/30/21 11:09:00 EDT, Weight Dosing Start: 04-13-2022 Test Strips, See Instructions, 100 EA, 3, Use to test BS daily, [facility] #[id number], Supply, 167.5, cm, 10/18/22 13:30:00 EDT, Height/Length Dosing, 147, kg, 10/18/22 13:30:00 EDT, Weight Dosing Start: 10-19-2022 Lancets, See Instructions, 100 EA, 3, Use to check BS daily dx E11.9, [facility] #[id number], Supply, 163, cm, 12/30/21 11:09:00 EDT, Height/Length Dosing, 154, kg, 12/30/21 11:09:00 EDT, Weight Dosing Start: 04-13-2022 Test Strips, See Instructions, 100 EA, 3, Use to test BS daily, [facility] #[id number], Supply, 167.5, cm, 10/18/22 13:30:00 EDT, Height/Length Dosing, 147, kg, 10/18/22 13:30:00 EDT, Weight Dosing Start: 10-19-2022 Lancets, See Instructions, 100 EA, 3, Use to check BS daily dx E11.9, [facility] #[id number], Supply, 163, cm, 12/30/21 11:09:00 EDT, Height/Length Dosing, 154, kg, 12/30/21 11:09:00 EDT, Weight Dosing Start: 04-13-2022 Test Strips, See Instructions, 100 EA, 3, Use to test BS daily, [facility] #[id number], Supply, 167.5, cm, 10/18/22 13:30:00 EDT, Height/Length Dosing, 147, kg, 10/18/22 13:30:00 EDT, Weight Dosing Start: 10-19-2022 Lancets, See Instructions, 100 EA, 3, Use to check BS daily dx E11.9, [facility] #[id number], Supply, 163, cm, 12/30/21 11:09:00 EDT, Height/Length Dosing, 154, kg, 12/30/21 11:09:00 EDT, Weight Dosing Start: 04-13-2022 Test Strips, See Instructions, 100 EA, 3, Use to test BS daily, [facility] #[id number], Supply, 167.5, cm, 10/18/22 13:30:00 EDT, Height/Length Dosing, 147, kg, 10/18/22 13:30:00 EDT, Weight Dosing Start: 10-19-2022 Lancets, See Instructions, 100 EA, 3, Use to check BS daily dx E11.9, [facility] #[id number], Supply, 163, cm, 12/30/21 11:09:00 EDT, Height/Length Dosing, 154, kg, 12/30/21 11:09:00 EDT, Weight Dosing Start: 04-13-2022 Test Strips, See Instructions, 100 EA, 3, Use to test BS daily, [facility] #[id number], Supply, 167.5, cm, 10/18/22 13:30:00 EDT, Height/Length Dosing, 147, kg, 10/18/22 13:30:00 EDT, Weight Dosing Start: 10-19-2022 Lancets, See Instructions, 100 EA, 3, Use to check BS daily dx E11.9, [facility] #[id number], Supply, 163, cm, 12/30/21 11:09:00 EDT, Height/Length Dosing, 154, kg, 12/30/21 11:09:00 EDT, Weight Dosing Start: 04-13-2022 Test Strips, See Instructions, 100 EA, 3, Use to test BS daily, [facility] #[id number], Supply, 167.5, cm, 10/18/22 13:30:00 EDT, Height/Length Dosing, 147, kg, 10/18/22 13:30:00 EDT, Weight Dosing Start: 10-19-2022 Lancets, See Instructions, 100 EA, 3, Use to check BS daily dx E11.9, [facility] #[id number], Supply, 163, cm, 12/30/21 11:09:00 EDT, Height/Length Dosing, 154, kg, 12/30/21 11:09:00 EDT, Weight Dosing Start: 04-13-2022 Test Strips, See Instructions, 100 EA, 3, Use to test BS daily, [facility] #[id number], Supply, 167.5, cm, 10/18/22 13:30:00 EDT, Height/Length Dosing, 147, kg, 10/18/22 13:30:00 EDT, Weight Dosing Start: 10-19-2022 Lancets, See Instructions, 100 EA, 3, Use to check BS daily dx E11.9, [facility] #[id number], Supply, 163, cm, 12/30/21 11:09:00 EDT, Height/Length Dosing, 154, kg, 12/30/21 11:09:00 EDT, Weight Dosing Start: 04-13-2022 Test Strips, See Instructions, 100 EA, 3, Use to test BS daily, [facility] #[id number], Supply, 167.5, cm, 10/18/22 13:30:00 EDT, Height/Length Dosing, 147, kg, 10/18/22 13:30:00 EDT, Weight Dosing Start: 10-19-2022 Lancets, See Instructions, 100 EA, 3, Use to check BS daily dx E11.9, [facility] #[id number], Supply, 163, cm, 12/30/21 11:09:00 EDT, Height/Length Dosing, 154, kg, 12/30/21 11:09:00 EDT, Weight Dosing Start: 04-13-2022 Test Strips, See Instructions, 100 EA, 3, Use to test BS daily, [facility] #[id number], Supply, 167.5, cm, 10/18/22 13:30:00 EDT, Height/Length Dosing, 147, kg, 10/18/22 13:30:00 EDT, Weight Dosing Start: 10-19-2022 Lancets, See Instructions, 100 EA, 3, Use to check BS daily dx E11.9, [facility] #[id number], Supply, 163, cm, 12/30/21 11:09:00 EDT, Height/Length Dosing, 154, kg, 12/30/21 11:09:00 EDT, Weight Dosing Start: 04-13-2022 Test Strips, See Instructions, 100 EA, 3, Use to test BS daily, [facility] #[id number], Supply, 167.5, cm, 10/18/22 13:30:00 EDT, Height/Length Dosing, 147, kg, 10/18/22 13:30:00 EDT, Weight Dosing Start: 10-19-2022 Lancets, See Instructions, 100 EA, 3, Use to check BS daily dx E11.9, [facility] #[id number], Supply, 163, cm, 12/30/21 11:09:00 EDT, Height/Length Dosing, 154, kg, 12/30/21 11:09:00 EDT, Weight Dosing Start: 04-13-2022 Test Strips, See Instructions, 100 EA, 3, Use to test BS daily, [facility] #[id number], Supply, 167.5, cm, 10/18/22 13:30:00 EDT, Height/Length Dosing, 147, kg, 10/18/22 13:30:00 EDT, Weight Dosing Start: 10-19-2022 Unknown Unknown 12/23/23 Non Biological Unknown FDA Start: 12-23-2023 Lancets, See Instructions, 100 EA, 3, Use to check BS daily dx E11.9, [facility] #[id number], Supply, 163, cm, 12/30/21 11:09:00 EDT, Height/Length Dosing, 154, kg, 12/30/21 11:09:00 EDT, Weight Dosing Start: 04-13-2022 Test Strips, See Instructions, 100 EA, 3, Use to test BS daily, [facility] #[id number], Supply, 167.5, cm, 10/18/22 13:30:00 EDT, Height/Length Dosing, 147, kg, 10/18/22 13:30:00 EDT, Weight Dosing Start: 10-19-2022 Unknown Unknown 12/23/23 Non Biological Unknown FDA Start: 12-23-2023 Lancets, See Instructions, 100 EA, 3, Use to check BS daily dx E11.9, [facility] #[id number], Supply, 163, cm, 12/30/21 11:09:00 EDT, Height/Length Dosing, 154, kg, 12/30/21 11:09:00 EDT, Weight Dosing Start: 04-13-2022 Test Strips, See Instructions, 100 EA, 3, Use to test BS daily, [facility] #[id number], Supply, 167.5, cm, 10/18/22 13:30:00 EDT, Height/Length Dosing, 147, kg, 10/18/22 13:30:00 EDT, Weight Dosing Start: 10-19-2022 Unknown Unknown 12/23/23 Non Biological Unknown FDA Start: 12-23-2023 Lancets, See Instructions, 100 EA, 3, Use to check BS daily dx E11.9, [facility] #[id number], Supply, 163, cm, 12/30/21 11:09:00 EDT, Height/Length Dosing, 154, kg, 12/30/21 11:09:00 EDT, Weight Dosing Start: 04-13-2022 Test Strips, See Instructions, 100 EA, 3, Use to test BS daily, [facility] #[id number], Supply, 167.5, cm, 10/18/22 13:30:00 EDT, Height/Length Dosing, 147, kg, 10/18/22 13:30:00 EDT, Weight Dosing Start: 10-19-2022 Unknown Unknown 12/23/23 Non Biological Unknown FDA Start: 12-23-2023 Lancets, See Instructions, 100 EA, 3, Use to check BS daily dx E11.9, [facility] #[id number], Supply, 163, cm, 12/30/21 11:09:00 EDT, Height/Length Dosing, 154, kg, 12/30/21 11:09:00 EDT, Weight Dosing Start: 04-13-2022 Test Strips, See Instructions, 100 EA, 3, Use to test BS daily, [facility] #[id number], Supply, 167.5, cm, 10/18/22 13:30:00 EDT, Height/Length Dosing, 147, kg, 10/18/22 13:30:00 EDT, Weight Dosing Start: 10-19-2022 Unknown Unknown 12/23/23 Non Biological Unknown FDA Start: 12-23-2023 Lancets, See Instructions, 100 EA, 3, Use to check BS daily dx E11.9, [facility] #[id number], Supply, 163, cm, 12/30/21 11:09:00 EDT, Height/Length Dosing, 154, kg, 12/30/21 11:09:00 EDT, Weight Dosing Start: 04-13-2022 Test Strips, See Instructions, 100 EA, 3, Use to test BS daily, [facility] #[id number], Supply, 167.5, cm, 10/18/22 13:30:00 EDT, Height/Length Dosing, 147, kg, 10/18/22 13:30:00 EDT, Weight Dosing Start: 10-19-2022 Unknown Unknown 12/23/23 Non Biological Unknown FDA Start: 12-23-2023 Lancets, See Instructions, 100 EA, 3, Use to check BS daily dx E11.9, [facility] #[id number], Supply, 163, cm, 12/30/21 11:09:00 EDT, Height/Length Dosing, 154, kg, 12/30/21 11:09:00 EDT, Weight Dosing Start: 04-13-2022 Test Strips, See Instructions, 100 EA, 3, Use to test BS daily, [facility] #[id number], Supply, 167.5, cm, 10/18/22 13:30:00 EDT, Height/Length Dosing, 147, kg, 10/18/22 13:30:00 EDT, Weight Dosing Start: 10-19-2022 Unknown Unknown 12/23/23 Non Biological Unknown FDA Start: 12-23-2023 Lancets, See Instructions, 100 EA, 3, Use to check BS daily dx E11.9, [facility] #[id number], Supply, 163, cm, 12/30/21 11:09:00 EDT, Height/Length Dosing, 154, kg, 12/30/21 11:09:00 EDT, Weight Dosing Start: 04-13-2022 Test Strips, See Instructions, 100 EA, 3, Use to test BS daily, [facility] #[id number], Supply, 167.5, cm, 10/18/22 13:30:00 EDT, Height/Length Dosing, 147, kg, 10/18/22 13:30:00 EDT, Weight Dosing Start: 10-19-2022 Unknown Unknown 12/23/23 Non Biological Unknown FDA Start: 12-23-2023 Lancets, See Instructions, 100 EA, 3, Use to check BS daily dx E11.9, [facility] #[id number], Supply, 163, cm, 12/30/21 11:09:00 EDT, Height/Length Dosing, 154, kg, 12/30/21 11:09:00 EDT, Weight Dosing Start: 04-13-2022 Test Strips, See Instructions, 100 EA, 3, Use to test BS daily, [facility] #[id number], Supply, 167.5, cm, 10/18/22 13:30:00 EDT, Height/Length Dosing, 147, kg, 10/18/22 13:30:00 EDT, Weight Dosing Start: 10-19-2022 Unknown Unknown 12/23/23 Non Biological Unknown FDA Start: 12-23-2023 Lancets, See Instructions, 100 EA, 3, Use to check BS daily dx E11.9, [facility] #[id number], Supply, 163, cm, 12/30/21 11:09:00 EDT, Height/Length Dosing, 154, kg, 12/30/21 11:09:00 EDT, Weight Dosing Start: 04-13-2022 Test Strips, See Instructions, 100 EA, 3, Use to test BS daily, [facility] #[id number], Supply, 167.5, cm, 10/18/22 13:30:00 EDT, Height/Length Dosing, 147, kg, 10/18/22 13:30:00 EDT, Weight Dosing Start: 10-19-2022 Unknown Unknown 12/23/23 Non Biological Unknown FDA Start: 12-23-2023 Lancets, See Instructions, 100 EA, 3, Use to check BS daily dx E11.9, [facility] #[id number], Supply, 163, cm, 12/30/21 11:09:00 EDT, Height/Length Dosing, 154, kg, 12/30/21 11:09:00 EDT, Weight Dosing Start: 04-13-2022 Test Strips, See Instructions, 100 EA, 3, Use to test BS daily, [facility] #[id number], Supply, 167.5, cm, 10/18/22 13:30:00 EDT, Height/Length Dosing, 147, kg, 10/18/22 13:30:00 EDT, Weight Dosing Start: 10-19-2022 Unknown Unknown 12/23/23 Non Biological Unknown FDA Start: 12-23-2023 Lancets, See Instructions, 100 EA, 3, Use to check BS daily dx E11.9, [facility] #[id number], Supply, 163, cm, 12/30/21 11:09:00 EDT, Height/Length Dosing, 154, kg, 12/30/21 11:09:00 EDT, Weight Dosing Start: 04-13-2022 Test Strips, See Instructions, 100 EA, 3, Use to test BS daily, [facility] #[id number], Supply, 167.5, cm, 10/18/22 13:30:00 EDT, Height/Length Dosing, 147, kg, 10/18/22 13:30:00 EDT, Weight Dosing Start: 04-18-2023 Unknown Unknown 12/23/23 Non Biological Unknown FDA Start: 12-23-2023 Lancets, See Instructions, 100 EA, 3, Use to check BS daily dx E11.9, [facility] #[id number], Supply, 163, cm, 12/30/21 11:09:00 EDT, Height/Length Dosing, 154, kg, 12/30/21 11:09:00 EDT, Weight Dosing Start: 04-13-2022 Test Strips, See Instructions, 100 EA, 3, Use to test BS daily, [facility] #[id number], Supply, 167.5, cm, 10/18/22 13:30:00 EDT, Height/Length Dosing, 147, kg, 10/18/22 13:30:00 EDT, Weight Dosing Start: 10-19-2022 Unknown Unknown 12/23/23 Non Biological Unknown FDA Start: 12-23-2023 Lancets, See Instructions, 100 EA, 3, Use to check BS daily dx E11.9, [facility] #[id number], Supply, 163, cm, 12/30/21 11:09:00 EDT, Height/Length Dosing, 154, kg, 12/30/21 11:09:00 EDT, Weight Dosing Start: 04-13-2022 Test Strips, See Instructions, 100 EA, 3, Use to test BS daily, [facility] #[id number], Supply, 167.5, cm, 10/18/22 13:30:00 EDT, Height/Length Dosing, 147, kg, 10/18/22 13:30:00 EDT, Weight Dosing Start: 10-19-2022 Unknown Unknown 12/23/23 Non Biological Unknown FDA Start: 12-23-2023 Lancets, See Instructions, 100 EA, 3, Use to check BS daily dx E11.9, [facility] #[id number], Supply, 163, cm, 12/30/21 11:09:00 EDT, Height/Length Dosing, 154, kg, 12/30/21 11:09:00 EDT, Weight Dosing Start: 04-13-2022 Test Strips, See Instructions, 100 EA, 3, Use to test BS daily, [facility] #[id number], Supply, 167.5, cm, 10/18/22 13:30:00 EDT, Height/Length Dosing, 147, kg, 10/18/22 13:30:00 EDT, Weight Dosing Start: 10-19-2022 Unknown Unknown 12/23/23 Non Biological Unknown FDA Start: 12-23-2023 Lancets, See Instructions, 100 EA, 3, Use to check BS daily dx E11.9, [facility] #[id number], Supply, 163, cm, 12/30/21 11:09:00 EDT, Height/Length Dosing, 154, kg, 12/30/21 11:09:00 EDT, Weight Dosing Start: 04-13-2022 Test Strips, See Instructions, 100 EA, 3, Use to test BS daily, [facility] #[id number], Supply, 167.5, cm, 10/18/22 13:30:00 EDT, Height/Length Dosing, 147, kg, 10/18/22 13:30:00 EDT, Weight Dosing Start: 10-19-2022 Unknown Unknown 12/23/23 Non Biological Unknown FDA Start: 12-23-2023 Lancets, See Instructions, 100 EA, 3, Use to check BS daily dx E11.9, [facility] #[id number], Supply, 163, cm, 12/30/21 11:09:00 EDT, Height/Length Dosing, 154, kg, 12/30/21 11:09:00 EDT, Weight Dosing Start: 04-13-2022 Test Strips, See Instructions, 100 EA, 3, Use to test BS daily, [facility] #[id number], Supply, 167.5, cm, 10/18/22 13:30:00 EDT, Height/Length Dosing, 147, kg, 10/18/22 13:30:00 EDT, Weight Dosing Start: 10-19-2022 Unknown Unknown 12/23/23 Non Biological Unknown FDA Start: 12-23-2023 Lancets, See Instructions, 100 EA, 3, Use to check BS daily dx E11.9, [facility] #[id number], Supply, 163, cm, 12/30/21 11:09:00 EDT, Height/Length Dosing, 154, kg, 12/30/21 11:09:00 EDT, Weight Dosing Start: 04-13-2022 Test Strips, See Instructions, 100 EA, 3, Use to test BS daily, [facility] #[id number], Supply, 167.5, cm, 10/18/22 13:30:00 EDT, Height/Length Dosing, 147, kg, 10/18/22 13:30:00 EDT, Weight Dosing Start: 10-19-2022 Unknown Unknown 12/23/23 Non Biological Unknown FDA Start: 12-23-2023 Lancets, See Instructions, 100 EA, 3, Use to check BS daily dx E11.9, [facility] #[id number], Supply, 163, cm, 12/30/21 11:09:00 EDT, Height/Length Dosing, 154, kg, 12/30/21 11:09:00 EDT, Weight Dosing Start: 04-13-2022 Test Strips, See Instructions, 100 EA, 3, Use to test BS daily, [facility] #[id number], Supply, 167.5, cm, 10/18/22 13:30:00 EDT, Height/Length Dosing, 147, kg, 10/18/22 13:30:00 EDT, Weight Dosing Start: 10-19-2022 Unknown Unknown 12/23/23 Non Biological Unknown FDA Start: 12-23-2023 Lancets, See Instructions, 100 EA, 3, Use to check BS daily dx E11.9, [facility] #[id number], Supply, 163, cm, 12/30/21 11:09:00 EDT, Height/Length Dosing, 154, kg, 12/30/21 11:09:00 EDT, Weight Dosing Start: 04-13-2022 Test Strips, See Instructions, 100 EA, 3, Use to test BS daily, [facility] #[id number], Supply, 167.5, cm, 10/18/22 13:30:00 EDT, Height/Length Dosing, 147, kg, 10/18/22 13:30:00 EDT, Weight Dosing Start: 10-19-2022 Unknown Unknown 12/23/23 Non Biological Unknown FDA Start: 12-23-2023 Lancets, See Instructions, 100 EA, 3, Use to check BS daily dx E11.9, [facility] #[id number], Supply, 163, cm, 12/30/21 11:09:00 EDT, Height/Length Dosing, 154, kg, 12/30/21 11:09:00 EDT, Weight Dosing Start: 04-13-2022 Test Strips, See Instructions, 100 EA, 3, Use to test BS daily, [facility] #[id number], Supply, 167.5, cm, 10/18/22 13:30:00 EDT, Height/Length Dosing, 147, kg, 10/18/22 13:30:00 EDT, Weight Dosing Start: 10-19-2022 Unknown Unknown 12/23/23 Non Biological Unknown FDA Start: 12-23-2023 Lancets, See Instructions, 100 EA, 3, Use to check BS daily dx E11.9, [facility] #[id number], Supply, 163, cm, 12/30/21 11:09:00 EDT, Height/Length Dosing, 154, kg, 12/30/21 11:09:00 EDT, Weight Dosing Start: 04-13-2022 Test Strips, See Instructions, 100 EA, 3, Use to test BS daily, [facility] #[id number], Supply, 167.5, cm, 10/18/22 13:30:00 EDT, Height/Length Dosing, 147, kg, 10/18/22 13:30:00 EDT, Weight Dosing Start: 10-19-2022 Unknown Unknown 12/23/23 Non Biological Unknown FDA Start: 12-23-2023 Lancets, See Instructions, 100 EA, 3, Use to check BS daily dx E11.9, [facility] #[id number], Supply, 163, cm, 12/30/21 11:09:00 EDT, Height/Length Dosing, 154, kg, 12/30/21 11:09:00 EDT, Weight Dosing Start: 04-13-2022 Test Strips, See Instructions, 100 EA, 3, Use to test BS daily, [facility] #[id number], Supply, 167.5, cm, 10/18/22 13:30:00 EDT, Height/Length Dosing, 147, kg, 10/18/22 13:30:00 EDT, Weight Dosing Start: 10-19-2022 Unknown Unknown 12/23/23 Non Biological Unknown FDA Start: 12-23-2023 Lancets, See Instructions, 100 EA, 3, Use to check BS daily dx E11.9, [facility] #[id number], Supply, 163, cm, 12/30/21 11:09:00 EDT, Height/Length Dosing, 154, kg, 12/30/21 11:09:00 EDT, Weight Dosing Start: 04-13-2022 Test Strips, See Instructions, 100 EA, 3, Use to test BS daily, [facility] #[id number], Supply, 167.5, cm, 10/18/22 13:30:00 EDT, Height/Length Dosing, 147, kg, 10/18/22 13:30:00 EDT, Weight Dosing Start: 10-19-2022 Goals Date Patient Goal Desired Activity /State Functional Status Date Assessment Result Facility 07-18-2024 Functional Status N/A [facility] 07-11-2024 Functional Status N/A [facility] 06-05-2024 Functional Status N/A [facility] 02-22-2024 Functional Status N/A [facility] 12-23-2023 Functional Status N/A [facility] 12-06-2023 Functional Status No [facility] 11-25-2023 Functional Status N/A [facility] 11-02-2023 Functional Status N/A [facility] 10-26-2023 Functional Status N/A [facility] 10-25-2023 Functional Status No [facility] 10-11-2023 Functional Status N/A [facility] 08-10-2023 Functional Status N/A [facility] 05-09-2023 Functional Status N/A [facility] 04-26-2023 Functional Status N/A [facility] 03-18-2023 Functional Status N/A [facility] 11-26-2022 Functional Status N/A [facility] 10-13-2022 Functional Status No [facility] 09-29-2022 Functional Status No [facility] 09-24-2022 Functional Status N/A [facility] 09-22-2022 Functional Status No [facility] 09-14-2022 Functional status [facility] at [facility] Work Phone: 09-06-2022 Functional Status N/A [facility] 08-20-2022 Functional Status N/A [facility] 12-30-2021 Functional Status N/A [facility] Mental Status Date Assessment Result Facility 09-14-2022 Cognitive function Cognitive Sta tus Patient at [facility] Work Phone: Clinical Notes 07-02-2021 to 04-09-2025 Note Date & Type Note Facility 04-09-2025 Hospital Discharg e instructions Patient Education 04/09/2025 12:14:37 Acute Bronchitis, Adult Acute Bronchitis, Adult Acute bronchitis is sudden inflammation of the main airways (bronchi) that come off the windpipe (trachea) in the lungs. The swelling causes the airways to get smaller and make more mucus than normal. This can make it hard to breathe and can cause coughing or noisy breathing (wheezing). Acute bronchitis may last several weeks. The cough may last longer. Allergies, asthma, and exposure to smoke may make the condition worse. What are the causes? This condition can be caused by germs and by substances that irritate the lungs, including: Cold and flu viruses. The most common cause of this condition is the virus that causes the common cold. Bacteria. This is less common. Breathing in substances that irritate the lungs, including: ?Smoke from cigarettes and other forms of tobacco. ?Dust and pollen. ?Fumes from household cleaning products, gases, or burned fuel. ?Indoor or outdoor air pollution. What increases the risk? The following factors may make you more likely to develop this condition: A weak body's defense system, also called the immune system. A condition that affects your lungs and breathing, such as asthma. What are the signs or symptoms? Common symptoms of this condition include: Coughing. This may bring up clear, yellow, or green mucus from your lungs (sputum). Wheezing. Runny or stuffy nose. Having too much mucus in your lungs (chest congestion). Shortness of breath. Aches and pains, including sore throat or chest. How is this diagnosed? This condition is usually diagnosed based on: Your symptoms and medical history. A physical exam. You may also have other tests, including tests to rule out other conditions, such as pneumonia. These tests include: A test of lung function. Test of a mucus sample to look for the presence of bacteria. Tests to check the oxygen level in your blood. Blood tests. Chest X-ray. How is this treated? Most cases of acute bronchitis clear up over time without treatment. Your health care provider may recommend: Drinking more fluids to help thin your mucus so it is easier to cough up. Taking inhaled medicine (inhaler) to improve air flow in and out of your lungs. Using a vaporizer or a humidifier. These are machines that add water to the air to help you breathe better. Taking a medicine that thins mucus and clears congestion (expectorant). Taking a medicine that prevents or stops coughing (cough suppressant). It is not common to take an antibiotic medicine for this condition. Follow these instructions at home: Take vbba-wmu-agcacpi and prescription medicines only as told by your health care provider. Use an inhaler, vaporizer, or humidifier as told by your health care provider. Take two teaspoons (10 mL) of honey at bedtime to lessen coughing at night. Drink enough fluid to keep your urine pale yellow. Do not use any products that contain nicotine or tobacco. These products include cigarettes, chewing tobacco, and vaping devices, such as e-cigarettes. If you need help quitting, ask your health care provider. Get plenty of rest. Return to your normal activities as told by your health care provider. Ask your health care provider what activities are safe for you. Keep all follow-up visits. This is important. How is this prevented? To lower your risk of getting this condition again: Wash your hands often with soap and water for at least 20 seconds. If soap and water are not available, use hand director of strategic initiatives. Avoid contact with people who have cold symptoms. Try not to touch your mouth, nose, or eyes with your hands. Avoid breathing in smoke or chemical fumes. Breathing smoke or chemical fumes will make your condition worse. Get the flu shot every year. Contact a health care provider if: Your symptoms do not improve after 2 weeks. You have trouble coughing up the mucus. Your cough keeps you awake at night. You have a fever. Get help right away if you: Cough up blood. Feel pain in your chest. Have severe shortness of breath. Faint or keep feeling like you are going to faint. Have a severe headache. Have a fever or chills that get worse. These symptoms may represent a serious problem that is an emergency. Do not wait to see if the symptoms will go away. Get medical help right away. Call your local emergency services (911 in the [place] Do not drive yourself to the hospital. Summary Acute bronchitis is inflammation of the main airways (bronchi) that come off the windpipe (trachea) in the lungs. The swelling causes the airways to get smaller and make more mucus than normal. Drinking more fluids can help thin your mucus so it is easier to cough up. Take hqyn-tuv-ylidsge and prescription medicines only as told by your health care provider. Do not use any products that contain nicotine or tobacco. These products include cigarettes, chewing tobacco, and vaping devices, such as e-cigarettes. If you need help quitting, ask your health care provider. Contact a health care provider if your symptoms do not improve after 2 weeks. This information is not intended to replace advice given to you by your health care provider. Make sure you discuss any questions you have with your health care provider. Document Revised: 09/30/2022 Document Reviewed: 10/21/2021 [employer] Patient Education 2023 [employer]. 04/09/2025 06:41:02 Sleep Apnea Sleep Apnea Sleep apnea is [...] your health care provider. General instructions Take ldep-kxh-oztnfqq and prescription medicines only as told by [...] provider. Document Revised: 01/27/2022 Document Reviewed: 05/29/2021 [employer] Patient Education 2023 [employer]. 04/09/2025 06:41:00 Type 2 Diabetes Mellitus, Self-Care, Adult Type [...] you how to adjust your dosage. Take krse-zpt-dykgjbp and prescription medicines only as told by [...] your health care provider once every year. Thayne your teeth and gums two times a [...] with a certified diabetes care and education rn? Where can I find a support group for people with diabetes? Where to find more information For help and guidance and for more information about diabetes, please visit: [place] [employer] (ADA): www.diabetes.org [place] [employer] Care and Education Specialists [...] provider. Document Revised: 11/18/2021 Document Reviewed: 11/18/2021 [employer] Patient Education 2023 [employer]. 04/09/2025 06:40:57 Asthma, Adult Asthma, Adult Asthma is a [...] breathing (shortness of breath). 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 Chest tightness. Tiredness (fatigue) with minimal [...] condition. Follow these instructions at home: Take unzg-caa-mzlzedx and prescription medicines only as told by [...] provider. Document Revised: 04/07/2022 Document Reviewed: 03/29/2022 [employer] Patient Education 2023 [employer]. Follow Up Care 04/08/2025 08:18:43 With:Yocasta SMITH, HEATER OPERATOR HELPER-BUFFER OPERATORMyron Address: [address] [place] [phone] When:Within 3 Month(s) Comments[facility] Patient Education ENT Sleep Apnea Sleep apnea is a condition [...] your risk of certain health problems, including: ??? Heart attack. ??? Stroke. ??? Obesity. ??? Type 2 diabetes. ??? Heart failure. ??? Irregular heartbeat. ??? High blood pressure. The goal of treatment is to help you breathe normally again. What are the causes? The most common cause of sleep apnea is a collapsed or blocked airway. There are three kinds of sleep apnea: ??? Obstructive sleep apnea. This kind is caused by a blocked or collapsed airway. ??? Central sleep apnea. This kind happens when the part of the brain that controls breathing does not send the correct signals to the muscles that control breathing. ??? Mixed sleep apnea. This is a combination of obstructive and central sleep apnea. What increases the risk? You are more likely to develop this condition if you: ??? Are overweight. ??? Smoke. ??? Have a smaller than normal airway. ??? Are older. ??? Are male. ??? Drink alcohol. ??? Take sedatives or tranquilizers. ??? Have a family history of sleep apnea. ??? Have a tongue or tonsils that are larger than normal. What are the signs or symptoms? Symptoms of this condition include: ??? Trouble staying asleep. ??? Loud snoring. ??? Morning headaches. ??? Waking up gasping. ??? Dry mouth or sore throat in the morning. ??? Daytime sleepiness and tiredness. If you have daytime fatigue because of sleep apnea, you may be more likely to have: ??? Trouble concentrating. ??? Forgetfulness. ??? Irritability or mood swings. ??? Personality changes. ??? Feelings of depression. ??? Sexual dysfunction. This may include loss of interest if you are female, or erectile dysfunction if you are male. How is this diagnosed? This condition may be diagnosed with: ??? A medical history. ??? A physical exam. ??? A series of tests that are done [...] blood pressure or obesity. Treatment may include: ??? Sleeping on your side. ??? Using a decongestant if you have nasal congestion. ??? Avoiding the use of depressants, including alcohol, sedatives, and narcotics. ??? Losing weight if you are overweight. ??? Making changes to your diet. ??? Quitting smoking. ??? Using a device to open your airway while you sleep, such as: ? An oral appliance. This is a custom-made mouthpiece that shifts your lower jaw forward. ? A continuous positive airway pressure (CPAP) device. This device blows air through a mask when you breathe out (exhale). ? A nasal expiratory positive airway pressure (EPAP) device. This device has valves that you put into each nostril. ? A bi-level positive airway pressure (BIPAP) device. This device blows air through a mask when you breathe in (inhale) and breathe out (exhale). ??? Having surgery if other treatments do not work. During surgery, excess tissue is removed to create a wider airway. Follow these instructions at home: Lifestyle ??? Make any lifestyle changes that your health care provider recommends. ??? Eat a healthy, well-balanced diet. ??? Take steps to lose weight if you are overweight. ??? Avoid using depressants, including alcohol, sedatives, and narcotics. ??? Do not use any products that contain nicotine or tobacco. These products include cigarettes, chewing tobacco, and vaping devices, such as e-cigarettes. If you need help quitting, ask your health care provider. General instructions ??? Take pzsv-qbd-cspvtxk and prescription medicines only as told by your health care provider. ??? If you were given a device to open your airway while you sleep, use it only as told by your health care provider. ??? If you are having surgery, make sure to tell your health care provider you have sleep apnea. You may need to bring your device with you. ??? Keep all follow-up visits. This is important. Contact a health care provider if: ??? The device that you received to open your airway during sleep is uncomfortable or does not seem to be working. ??? Your symptoms do not improve. ??? Your symptoms get worse. Get help right away if: ??? You develop: ? Chest pain. ? Shortness of breath. ? Discomfort in your back, arms, or stomach. ??? You have: ? Trouble speak (more content not included)... [facility] 03-04-2025 Hospital Discharg e instructions Patient Education [...] breathing (shortness of breath). 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 Chest tightness. Tiredness (fatigue) with minimal [...] condition. Follow these instructions at home: Take sqwa-avd-tmmmerl and prescription medicines only as told by [...] provider. Document Revised: 04/07/2022 Document Reviewed: 03/29/2022 [employer] Patient Education 2023 [employer]. 03/04/2025 12:44:27 Exercising to Lose Weight Exercising [...] your health care provider or diet and geospatial specialist (dietitian). This may include: ?Eating fewer calories. [...] provider. Document Revised: 08/16/2021 Document Reviewed: 08/16/2021 [employer] Patient Education 2023 [employer] 03/04/2025 12:44:24 Type 2 Diabetes Mellitus, Self-Care, [...] you how to adjust your dosage. Take abvw-wbk-cmfhfif and prescription medicines only as told by [...] your health care provider once every year. Thayne your teeth and gums two times a [...] with a certified diabetes care and education rn? Where can I find a support group for people with diabetes? Where to find more information For help and guidance and for more information about diabetes, please visit: [place] [employer] (ADA): www.diabetes.org [place] [employer] Care and Education Specialists [...] provider. Document Revised: 11/18/2021 Document Reviewed: 11/18/2021 [employer] Patient Education 2023 [employer]. [facility] 03-04-2025 Note Patient Education [...] how to adjust your dosage. ??? Take mckq-qsc-wkrahqu and prescription medicines only as told by [...] the week. ? (more content not included)... [facility] 02-04-2025 Hospital Discharg e instructions Patient [...] your health care provider or diet and geospatial specialist (dietitian). This may include: ?Eating fewer calories. [...] provider. Document Revised: 08/16/2021 Document Reviewed: 08/16/2021 [employer] Patient Education 2023 [employer]. 02/04/2025 15:12:32 Type 2 Diabetes Mellitus, Self-Care, [...] you how to adjust your dosage. Take tmxu-dqv-eszgahj and prescription medicines only as told by [...] your health care provider once every year. Thayne your teeth and gums two times a [...] with a certified diabetes care and education rn? Where can I find a support group for people with diabetes? Where to find more information For help and guidance and for more information about diabetes, please visit: [place] [employer] (ADA): www.diabetes.org [place] [employer] Care and Education Specialists [...] provider. Document Revised: 11/18/2021 Document Reviewed: 11/18/2021 [employer] Patient Education 2023 [employer]. 02/04/2025 15:12:29 Asthma, Adult Asthma, Adult Asthma [...] breathing (shortness of breath). 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 Chest tightness. Tiredness (fatigue) with minimal [...] condition. Follow these instructions at home: Take kude-kfy-cnurcmc and prescription medicines only as told by [...] provider. Document Revised: 04/07/2022 Document Reviewed: 03/29/2022 [employer] Patient Education 2023 CIR[employer]Y. Follow Up Care 01/02/2025 14:24:55 With:Yocasta SMITH, HEATER OPERATOR HELPER-BUFFER OPERATOR, Myron Hamilton Address: [address] [place] [phone] When:Within 1 Month(s) Comments:weight loss, initial 40 min [facility] 02-04-2025 Note Patient [...] how to adjust your dosage. ??? Take luys-cir-dhhjurf and prescription medicines only as told by [...] the week. ? (more content not included)... [facility] 01-24-2025 Note ED Patient Education Note [...] water are not available, use hand director of strategic initiatives. ? Change your dressing as told by [...] scar, or cover it up. ??? Take naqn-hnj-mksqxfn and prescription medicines only as told by [...] provider. Document Revised: 10/26/2021 Document Reviewed: 10/26/2021 [employer] Patient Education ? 2023 [employer] Fall Prevention in the Home, Adult [...] Keep items that you use often in cfzg-wg-mrhuy places. Lower t (more content not included)... [facility] 01-03-2025 Note Microbiology PROCEDURE: Blood Culture Charcoal [R1] SOURCE: Blood BODY SITE: Arm L COLLECTED DATE/TIME: 12/27/2024 10:54 EDT RECEIVED DATE/TIME: 12/27/2024 11:21 EDT START DATE/TIME: 12/27/2024 11:21 EDT FREE TEXT SOURCE: Mendez Spain, Whit Simms M.D., Whit Thurman FINAL REPORTS Final Report [] Verified Date/Time: 01/03/2025 12:00 EDT No growth at 7 days. Performing Locations R1: [facility], [address] [place] [address], [facility] Comment on above: Performed By: #### [id number] #### [facility] [address] [place] [address] 01-03-2025 Note Microbiology PROCEDURE: Blood Culture Charcoal [...] Locations R1: [facility] performed at: [facility], [address] [place] [address], [address] [place] [address], [facility] Comment on above: Performed By: #### [id number] #### [facility] [facility] [address] [place] [address] 01-02-2025 Hospital Discharg e instructions Patient Education [...] you how to adjust your dosage. Take csiw-hnq-powknsx and prescription medicines only as told by [...] your health care provider once every year. Thayne your teeth and gums two times a [...] with a certified diabetes care and education rn? Where can I find a support group for people with diabetes? Where to find more information For help and guidance and for more information about diabetes, please visit: [place] Diabetes Association (ADA): www.diabetes.org [place] Association of Diabetes Care and Education Specialists [...] provider. Document Revised: 11/18/2021 Document Reviewed: 11/18/2021 TrashOut Patient Education 2023 CIRQY. 01/02/2025 06:50:38 Sleep Apnea Sleep Apnea Sleep [...] your health care provider. General instructions Take ktgh-caq-qibbsmc and prescription medicines only as told by [...] provider. Document Revised: 01/27/2022 Document Reviewed: 05/29/2021 TrashOut Patient Education 2023 CIRQY. 01/02/2025 06:50:35 Heart Failure, Self-Care Heart Failure, [...] when you have heart failure Medicines Take ljhi-kaf-rlrwmfy and prescription medicines only as told by [...] provider. Document Revised: 09/28/2022 Document Reviewed: 01/10/2021 TrashOut Patient Education 2023 [employer]. 01/02/2025 06:50:34 Health Risks of Smoking [...] Department of Health and Human Services: www.smokefree.gov [place] [employer]: www.freedomfromsmoking.org [place] Heart Association: www.heart.org Where to find more [...] provider. Document Revised: 06/22/2022 Document Reviewed: 06/22/2022 TrashOut Patient Education 2023 CIRQY. Follow Up Care 12/19/2024 13:33:44 With:Yocasta SMITH, HEATER OPERATOR HELPER-BUFFER OPERATOR, Myron Hamilton Address: [address] [place] [phone] When:Within 1 Month(s) [facility] [place] 01-02-2025 Note Patient Education Cardiovascular Heart Failure, [...] when you have heart failure Medicines Take mdly-fcn-jhzobyb and prescription medicines only as told by [...] ? Avoid alcohol. (more content not included)... [facility] 12-29-2024 Evaluation + Plan note Extrac [...] When Contact Information Follow up with your blocker and sewer as Scheduled January 01 Additional Instructions: Myron Rust Within 7 to 10 days [address] [place] [address] [phone] [facility] (1) Additional Instructions: Call for followup appointment Cellulitis, Adult Fluid Restriction Heart Failure Action Plan Form - Daily Weight Record Extracted from: Title:APSO Note Author:Abisai Kaur III, DO Date:12/28/24 Patient is a 64-year-old fem nazanin with past medical history of tobacco abuse, HTN, HFpEF, GERD, history of alcohol abuse, HLD, asthma, BRENDA, morbid obesity (BMI 58.6), nmg-wbktann-kxyxrdlvn type 2 diabetes, marijuana use, COPD not on home oxygen, hypertension, history of volume overload especially with heavy alcohol use admitted to [facility] on 12/27/2024 for treatment of acute COPD [...] made to ensure accuracy. However inadvertent computerized licensing court magistrate errors may be present. Extracted from: Title:Admission H & P Author:Law jt Kaur III, DO Date:12/27/24 Patient is a 64-year-old fem nazanin with past medical history of tobacco abuse, HTN, HFpEF, GERD, history of alcohol abuse, HLD, asthma, BRNEDA, morbid obesity (BMI 58.6), gfk-mygsfgp-tfoeetwls type 2 diabetes, marijuana use, COPD not on home oxygen, hypertension, history of volume overload especially with heavy alcohol use admitted to [facility] on 12/27/2024 for treatment of acute COPD [...] Pain, Routine, Start date 12/27/24 14:03:00 EDT, 06/26/25 14:03:00 EDT albuterol-ipratropium, 3 mL, Soln-Inh, Inhalation, [...] Complete Initial Hospital Care/Day Moderate 55 Minutes [id number] Notify Provider Vital Signs Notify Provider Vital [...] made to ensure accuracy. However inadvertent computerized licensing court magistrate errors may be present. Addendum by Abisai [...] bilaterally, speech normal Extracted from: Title:ED Note Author:Whit Simms M.D. te:12/27/24 1. Acute exacerbation of con gestive [...] Date:01/01/2025 02:00:00 PM Scheduled Provider:Rick Hernandez PA-C [facility] [place] Appointment Type:Cardiology Follow Up (FT) Appointment Date:01/02/2025 01:40:00 PM Scheduled Provider:Yocasta MSN, HEATER OPERATOR HELPER-IRVING, Myron Hamilton [facility] Open Appointment Date:01/07/2025 12:30:00 PM Scheduled Provider: [facility]oint[facility] Type:PUL Pulmonary Function Test (FT) Future Scheduled Tests Laboratory* Microalbumin Level Urine 12/19/24 * Urine Microalbumin/Creatinine Ratio 12/19/24 [facility] 06-28-2025 Hospital Discharge instructions Patient Education [...] Follow these instructions at home: Medicines Take jnvg-uho-szfedrp and prescription medicines only as told by [...] provider. Document Revised: 02/15/2023 Document Reviewed: 02/15/2023 TrashOut Patient Education 2023 [employer]. 12/29/2024 11:04:37 Fluid Restriction Fluid Restriction Fluid [...] provider. Document Revised: 04/07/2021 Document Reviewed: 04/07/2021 [employer]ashOut Patient Education 2023 CIRQY. 12/29/2024 11:04:35 Heart Failure Action Plan Heart [...] symptoms. Follow these instructions at home: Take xoft-afd-fwewhcd and prescription medicines only as told by your health care provider. Weigh yourself daily. Your target weight is lb ( kg). ?Call your health care provider if you gain more than lb ( kg) in 24 hours, ormore than lb ( kg) in a week. ?Health care provider name: ?Health care provider phone number: Eat a heart-healthy diet. Work with a diet and geospatial specialist (dietitian) to create an eatingplan that is best for you. Keep all follow-up visits. This is important. Where to find more information [place] [employer] Association: Summary A heart failure action [...] provider. Document Revised: 09/28/2022 Document Reviewed: 02/02/2021 Elsevier Patient Education 2023 Elsevier Inc. 12/29/2024 11:04:33 Form - Daily Weight [...] Care 12/27/2024 10:32:55 With:Follow up with your blocker and sewer as Scheduled January 01 Address:Unknown When: Unknown With:Myron Rust Address: [address] [facility] [place] [phone] [facility] (1) When:7 to 10 days Comments:Call for followup appointment [facility] 06-28-2025 NoteDischarge Summary Admission and Discharge [...] HLD, asthma, BRENDA, morbid obesity (BMI 58.6), sgu-psdslle-yuehlujox type 2 diabetes, marijuana use, COPD not on home oxygen, hypertension, history of volume overload especially with heavy alcohol use admitted to [facility] on 12/27/2024 for treatment of right lower [...] 250 mg= 1 tab(s) (more content not included)...[facility]Result Comment: Electronically Signed By: Abisai Kaur III, DO.hardik\Date and Time Signed: 12/29/24 11:11 EDT 12-28-2024 NoteProgress Note-Physician Assessment/Plan Patient is a 64-year-old female with past medical history of tobacco abuse, HTN, HFpEF, GERD, history of alcohol abuse, HLD, asthma, BRENDA, morbid obesity (BMI 58.6), byj-tannbhy-fjogjlhov type 2 diabetes, marijuana use, COPD not on home oxygen, hypertension, history of volume overload especially with heavy alcohol use admitted to [facility] on 12/27/2024 for treatment of acute COPD [...] made to ensure accuracy. However inadvertent computerized licensing court magistrate errors may be present. Subjective Patient seen [...] Intake mL 125 4,209 (more content not included)...[facility]: Result Comment: Electronically Signed By: Abisai Kaur III, DO\.br\Date and Time Signed: 12/28/24 14:25 [id number] NoteHistory and Physical Basic Information Admit Date/Time:12/27/2024 13:58 Chief Complaint Shortness od breath, edema History of Present Illness Patient is a 64-year-old female with past medical history of tobacco abuse, HTN, HFpEF, GERD, history of alcohol abuse, HLD, asthma, BRENDA, morbid obesity (BMI 58.6), sbo-cmqyfcz-gnbcmqgjn type 2 diabetes, marijuana use, COPD not on home oxygen, hypertension, history of volume overload especially with heavy alcohol use who presents to [facility] ER on 12/27/2024 with chief complaint of [...] Lymph Auto: 12.1 % Low (12/27/24 10:54:00) [place] Auto: 5.3 % (12/27/24 10:54:00) Eos Auto: 1 % (12/27/24 10:54:00) Basophil Auto: 0.8 % (12/27/24 10:54:00) Neutro Absolute: 5.8 E9/L (12/27/24 10:54:00) Lymph Absolute: 0.9 E9/L Low (12/27/24 10:54:00) [place] Absolute: 0.4 E9/L (12/27/24 10:54:00) Eos Absolute: [...] 87 mg/dL (12/27/24 16:55:00) POC Device SN: [id number] (12/27/24 16:55:00) POC User ID: [id number] (12/27/24 16:55:00) POC Username: MIKEY CADET (12/27/24 16:55:00) Assessment/Plan Patient is a 64-year-old female with past medical history of tobacco abuse, HTN, HFpEF, GERD, history of alcohol abuse, HLD, asthma, BRENDA, morbid obesity (BMI 58.6), mib-jzkibzi-ebhummtud type 2 diabetes, marijuana use, COPD not on home oxygen, hypertension, history of volume overload especially with heavy alcohol use admitted to [facility] on 12/27/2024 for treatment of acute COPD exacerbation and acute heart failure exacerbation. 1. Acute on chronic heart failure (more content not included)...[facility]:Result Comment: Electronically Signed By: Abisai Kaur III, DO\.br\Date and Time Signed: 12/28/24 14:21 [id number] Note Echocardiology Procedure Exam Date/Time Accession # Ordering Echo Transthoracic 12/28/2024 10:03 EDT [id number] Abisai Kaur III, DO CPT code 46575 [id number] Reason for Exam (Echo Transthoracic Complete) Congestive Heart Failure Report [facility] [address] [place] [address] Adult Echocardiogram Report Name: CARMEN BLEDSOE Study Date: 12/28/2024 09:14 AM BP: 131/72 mmHg Patient Location: [address] [place] [address] HR: 73 : 1960 Gender: Female Height: 65.5 in Age: 64 yrs Ethnicity: [facility] Weight: 353 lb Reason For Study: Congestive Heart Failure BSA: 2.5 m2 History: HTN,Diabetes,BRENDA, Asthma, Smoker Alcohol abuse- remission Ordering Physician: Natasha^Surendra Performed By: Annabel Oconnell, [facility] Interpretation Summary The left ventricle is [...] Winter Coe MD Transcribed by: RUBEN Technologist: [facility]06-26-2025 Note History and Physical Basic Information Admit Date/Time:12/27/2024 13:58 Chief Complaint Shortness od breath, edema History of Present Illness Patient is a 64-year-old female with past medical history of tobacco abuse, HTN, HFpEF, GERD, history of alcohol abuse, HLD, asthma, BRENDA, morbid obesity (BMI 58.6), ymy-gyhlwlo-ssgtnrrgn type 2 diabetes, marijuana use, COPD not on home oxygen, hypertension, history of volume overload especially with heavy alcohol use who presents to [facility] on 12/27/2024 with chief complaint [...] Lymph Auto: 12.1 % Low (12/27/24 10:54:00) [place] Auto: 5.3 % (12/27/24 10:54:00) Eos Auto: 1 % (12/27/24 10:54:00) Basophil Auto: 0.8 % (12/27/24 10:54:00) Neutro Absolute: 5.8 E9/L (12/27/24 10:54:00) Lymph Absolute: 0.9 E9/L Low (12/27/24 10:54:00) [place] Absolute: 0.4 E9/L (12/27/24 10:54:00) Eos Absolute: [...] 87 mg/dL (12/27/24 16:55:00) POC Device SN: [id number] (12/27/24 16:55:00) POC User ID: [id number] (12/27/24 16:55:00) POC Username: MIKEY CADET (12/27/24 16:55:00) Assessment/Plan Patient is a 64-year-old female with past medical history of tobacco abuse, HTN, HFpEF, GERD, history of alcohol abuse, HLD, asthma, BRENDA, morbid obesity (BMI 58.6), hwx-bqgaqef-tliqblahm type 2 diabetes, marijuana use, COPD not on home oxygen, hypertension, history of volume overload especially with heavy alcohol use admitted to [facility] on 12/27/2024 for treatment of acute COPD exacerbation and acute heart failure exacerbation. 1. Acute on chronic heart failure (more content not included)...[facility]:Result Comment: Electronically Signed By: Abisai Kaur III, DO.hardik\Date and Time Signed: 12/27/24 17:49 [id number] Hospital Discharge instructions Patient Education 12/19/2024 06:38:27 [...] treat it right away. Always have a 33-oirwznmuv-qsiwdh carbohydrate snack with you to treat low [...] you how to adjust your dosage. Take bfle-gwx-wlcyjcx and prescription medicines only as told by [...] your health care provider once every year. Thayne your teeth and gums two times a [...] with a certified diabetes care and education rn? Where can I find a support group for people with diabetes? Where to find more information For help and guidance and for more information about diabetes, please visit: [place] Diabetes Association (ADA): www.diabetes.org [place] Association of Diabetes Care and Education Specialists [...] provider. Document Revised: 11/18/2021 Document Reviewed: 11/18/2021 TrashOut Patient Education 2023 CIRQY. 12/19/2024 06:38:26 Hypertension, Adult Hypertension, Adult High [...] follow-up visits. This is important. Medicines Take podg-jgv-ilxonmb and prescription medicines only as told by [...] provider. Document Revised: 04/27/2022 Document Reviewed: 04/27/2022 TrashOut Patient Education 2023 CIRQY. 12/19/2024 06:38:25 Heart Failure, Self-Care Heart Failure, [...] when you have heart failure Medicines Take exvm-kao-gcqscax and prescription medicines only as told by [...] provider. Document Revised: 09/28/2022 Document Reviewed: 01/10/2021 TrashOut Patient Education 2023 CIRQY. Follow Up Care 09/12/2024 13:36:39 With:Yocasta SMITH, HEATER OPERATOR HELPER-BUFFER OPERATOR, Myron Hamilton Address: [address] [place] [phone] When:Within 2 Week(s) Comments:chronic care [facility] [place] 06-18-2025 NotePatient Education Cardiovascular Hypertension, Adult High [...] one 12 oz bottle (more content not included)...[facility] Hospital Discharge instructions Patient Education 11/27/2024 [...] to any changes in your symptoms. Take ssvc-ima-kvpflhi and prescription medicines only as told by [...] provider. Document Revised: 02/06/2022 Document Reviewed: 02/06/2022 TrashOut Patient Education 2023 [employer]. 11/27/2024 17:34:19 Type 2 Diabetes Mellitus, Self-Care, [...] treat it right away. Always have a 69-hgompexqe-bmrcpa carbohydrate snack with you to treat low [...] you how to adjust your dosage. Take mvzp-lbn-ywmtmub and prescription medicines only as told by [...] your health care provider once every year. Thayne your teeth and gums two times a [...] with a certified diabetes care and education rn? Where can I find a support group for people with diabetes? Where to find more information For help and guidance and for more information about diabetes, please visit: [place] Diabetes Association (ADA): www.diabetes.org [place] Association of Diabetes Care and Education Specialists [...] provider. Document Revised: 11/18/2021 Document Reviewed: 11/18/2021 TrashOut Patient Education 2023 CIRQY. 11/26/2024 10:15:58 Peripheral Edema Peripheral Edema Peripheral [...] by your health care provider. Medicines Take rbpr-vde-jjnzyvp and prescription medicines only as told by [...] provider. Document Revised: 02/22/2022 Document Reviewed: 02/22/2022 TrashOut Patient Education 2023 CIRQY. 11/26/2024 10:15:55 Health Risks of Smoking Health [...] Department of Health and Human Services: www.smokefree.gov [place] Lung Association: www.freedomfromsmoking.org [place] Heart Association: www.heart.org Where to find more [...] provider. Document Revised: 06/22/2022 Document Reviewed: 06/22/2022 TrashOut Patient Education 2023 CIRQY. Follow Up Care 11/12/2024 15:55:00 With:Yocasta SMITH, HEATER OPERATOR HELPER-BUFFER OPERATOR, Myron Hamilton Address: [address] [place] [phone] When: only if needed [facility] [place] 05-27-2025 NotePatient Education Endocrinology Type 2 Diabetes [...] treat it right away. Always have a 14-ouuwyrwtt-nthecp carbohydrate snack with you to treat low [...] how to adjust your dosage. ??? Take kbox-quf-dfofrcw and prescription medicines only as told by [...] of the week. ? (more content not included)...[facility] History of Present illness Narrative* Susu Moody - 11/07/2024 10:00 AM EDT BRENDA on CPAP machine * Coco Dean MD - 11/07/2024 10:00 AM EDT BARIATRIC SURGERY NEW PATIENT CONSULTATION HISTORY AND PHYSICAL Date: 11/07/2024 Time: 10:47 AM Name: Carmen Bledsoe PCP: Myron Rust Insurance: Payor: [facility] MED[employer]ID [employer]AN / Plan: [facility] [employer] / Product Type: *No [...] Health Provider for the 'psych eval - Wave Solder Offbearer - Will obtain old medical records to [...] surgery due to history of smoking - [facility] print out was provided to [...] Minimally Invasive General [facility] NotePatient Education Health Risks of Smoking [...] of Health and Human Services: www.smokefree.gov ??? [place] Lung Association: www.freedomfromsmoking.org ??? [place] Heart Association: www.heart.org Where to find more [...] provider. Document Revised: 06/22/2022 Document Reviewed: 06/22/2022 TrashOut Patient Education ? 2023 [employer]Out Inc. Cardiovascular Hypertension, Adult High blood pressure [...] in high bloodpressure. What (more content not included)...[facility] Hospital Discharge instructions Patient Education 08/29/2024 [...] treat it right away. Always have a 68-hzxdjcqmt-jdbahv carbohydrate snack with you to treat low [...] you how to adjust your dosage. Take qlug-orr-btpekqa and prescription medicines only as told by [...] your health care provider once every year. Thayne your teeth and gums two times a [...] with a certified diabetes care and education rn? Where can I find a support group for people with diabetes? Where to find more information For help and guidance and for more information about diabetes, please visit: [place] Diabetes Association (ADA): www.diabetes.org [place] Association of Diabetes Care and Education Specialists [...] provider. Document Revised: 11/18/2021 Document Reviewed: 11/18/2021 TrashOut Patient Education 2023 CIRQY. 08/29/2024 08:03:26 Hypertension, Adult Hypertension, Adult High [...] follow-up visits. This is important. Medicines Take xgve-nwt-sslboxj and prescription medicines only as told by [...] provider. Document Revised: 04/27/2022 Document Reviewed: 04/27/2022 TrashOut Patient Education 2023 [employer]. 08/29/2024 08:03:25 High Cholesterol High Cholesterol High [...] ask your health careprovider. General instructions Take ruqc-mxg-jiqfzlp and prescription medicines only as told by your health care provider. Keep all follow-up visits. This is important. Where to find more information [place] Heart Association: www.heart.org National Heart, Lung, and Blood [place]: www.nhlbi.nih.gov Contact a health care provider if: [...] provider. Document Revised: 01/21/2023 Document Reviewed: 08/24/2021 ElseConjure Patient Education 2023 CIRQY. Follow Up Care 02/22/2024 14:05:28 With:Yocasta SMITH, HEATER OPERATOR HELPER-Myron VILLATORO Address: [address] [place] [phone] When:Within 6 Month(s) Comments:chronic care [facility] [place] 02-26-2025 NotePatient Education Cardiovascular Hypertension, Adult [...] one 12 oz bottle (more content not included)...[facility] Hospital Discharge instructions Patient Education 07/18/2024 [...] for Disease Control and Prevention: cdc.gov National [place] on Alcohol Abuse and Alcoholism: niaaa.nih.gov Alcoholics [...] the National Suicide Prevention Lifeline at or 844. This is open 24 hours a day. Text the Crisis Text Line at 134077. Summary Alcohol misuse and dependence can have [...] provider. Document Revised: 08/25/2022 Document Reviewed: 08/25/2022 TrashOut Patient Education 2023 [employer] Inc. 07/18/2024 12:21:13 Type 2 Diabetes Mellitus, Self-Care, [...] treat it right away. Always have a 44-wiixucsea-hooibh carbohydrate snack with you to treat low [...] you how to adjust your dosage. Take trww-cku-btuzpyi and prescription medicines only as told by [...] your health care provider once every year. Thayne your teeth and gums two times a [...] with a certified diabetes care and education rn? Where can I find a support group for people with diabetes? Where to find more information For help and guidance and for more information about diabetes, please visit: [place] Diabetes Association (ADA): www.diabetes.org [place] Association of Diabetes Care and Education Specialists [...] provider. Document Revised: 11/18/2021 Document Reviewed: 11/18/2021 TrashOut Patient Education 2023 CIRQY. Follow Up Care 07/11/2024 12:07:33 With:Yocasta SMITH, HEATER OPERATOR HELPER-BUFFER OPERATOR, Myron Hamilton Address: [address] [place] [phone] When: only if needed Comments:keep next month appt [facility] [place] 01-15-2025 NotePatient Education [...] treat it right away. Always have a 38-ucrxisxsd-dojxhu carbohydrate snack with you to treat low [...] how to adjust your dosage. ??? Take ziup-tgi-nqtuxdd and prescription medicines only as told by [...] of the week. ? (more content not included)...[facility]01-[facility] NoteNurse Consultation Note Reason for Visit [...] virus vaccine, inactivated 05/11/2022 Recorded SARS-CoV-2 (COVID-19) [id number] 05/11/2022 Recorded SARSCoV2 mRNA(woswkcevd-ghsx-dmhxyq) vac 12/15/2021 Recorded SARS-CoV-2 (COVID-19) mRNA BNT-162b2 [...] vaccine 12/16/2017 Recorded diphtheria/pertussis, acel/tetanus adult 10/27/2014 [facility]ed[facility] NotePatient Education Infectious Disease Diarrhea, Adult [...] oral rehydration solution (ORS). This is an zncy-gjg-vpyaviu medicine that helps returnyour body to its [...] drinks. ? Avoid alcohol. ??? Eat bland, ggwx-ki-icglyl foods in small amounts as you are able. These foods include bananas, applesauce, rice, lean meats, toast, and crackers. ??? Avoid spicy or fatty foods. Medicines ??? Take vzqe-ihb-zbcavno and prescription medicines only as told by [...] water are not available, use hand director of strategic initiatives. Others in the household should wash their [...] provider. Document Revised: 12/07/2022 Document Reviewed: 12/07/2022 ElseConjure Patient Education ? 2023 CIRQY. Mental and Behavioral Health Alcohol Misuse and [...] friends and family. ??? (more content not included)...[facility]01-[facility]25 Hospital Discharge instructions Follow Up Care 07/05/2024 08:14:42 With:nurse visit Address: When:2 to 3 days Comments:fasting labs With:Yocasta SMITH, HEATER OPERATOR HELPER-BUFFER OPERATOR, Myron Hamilton Address: [address] [place] [phone] When:Within 1 Week(s) Comments:chronic care [facility] [place] 08-21-2024 Hospital Discharge [...] treat it right away. Always have a 92-kskiodrva-nxiagi carbohydrate snack with you to treat low [...] you how to adjust your dosage. Take mbus-icq-sbpuidc and prescription medicines only as told by [...] your health care provider once every year. Thayne your teeth and gums two times a [...] with a certified diabetes care and education rn? Where can I find a support group for people with diabetes? Where to find more information For help and guidance and for more information about diabetes, please visit: [place] Diabetes Association (ADA): www.diabetes.org [place] Association of Diabetes Care and Education Specialists [...] provider. Document Revised: 11/18/2021 Document Reviewed: 11/18/2021 TrashOut Patient Education 2022 CIRQY. 02/22/2024 08:31:36 Mediterranean Diet Mediterranean Diet A [...] in common dishes like chili or lasagna. [place] with different cooking methods. Try roasting, broiling, [...] available, such as: ?Vegetable sticks with hummus. ?Bel[place]ian yogurt. ?Fruit and nut trail mix. Eat [...] Quinoa. Meats and other proteins Beans. Almonds. [place] seeds. Gem nuts. Peanuts. Cod. [place]. Scallops. Shrimp. Tuna. Tilapia. Clams. Oysters. Eggs. Poultry without skin. Dairy Low-fat milk. Cheese. Belarusian yogurt. Fats and oils Extra-virgin olive oil. Avocado oil. Grapeseed oil. Beverages Water. Red wine. Herbal tea. Sweets and desserts Belarusian yogurt with honey. Baked apples. Poached pears. [place] mix. Seasonings and condiments Basil. Cilantro. Coriander. [...] Fruit canned in syrup. Vegetables Deep-fried potatoes (cook islander fries). Grains Prepackaged pasta or rice dishes. [...] provider. Document Revised: 07/25/2020 Document Reviewed: 05/22/2020 TrashOut Patient Education 2022 CIRQY. 02/22/2024 08:31:35 Hypertension, Adult Hypertension, Adult High [...] follow-up visits. This is important. Medicines Take whka-fuj-qqczzlo and prescription medicines only as told by [...] provider. Document Revised: 04/27/2022 Document Reviewed: 04/27/2022 TrashOut Patient Education 2022 CIRQY. 02/22/2024 08:31:33 Health Risks of Smoking Health [...] Department of Health and Human Services: www.smokefree.gov [place] Lung Association: www.freedomfromsmoking.org [place] Heart Association: www.heart.org Where to find more [...] provider. Document Revised: 06/22/2022 Document Reviewed: 06/22/2022 TrashOut Patient Education 2022 CIRQY. Follow Up Care 11/25/2023 14:56:18 With:Yocasta SMITH, HEATER OPERATOR HELPER-BUFFER OPERATOR, Myron Joy Address: [address] [place] [phone] When:Within 6 Month(s) Comments:chronic care [facility] [place] 08-21-2024 NotePatient Education Cardiovascular [...] of wine (148 mL), (more content not included)...Magana [facility]06-24-2024 Note [id number] antonio [facility] 12-23-2023 Hospital Discharge instructions Patient Education 12/23/2023 13:17:05 Colonoscopy, Care After Surgery Salam (CUSTOM) Colonoscopy Care After Surgery Please read the instructions outlined below and refer to this sheet in the next few weeks. These discharge instructions provide you with general information on caring for yourself after you leave thespital. Your doctor may also give you specific [...] Care 11/02/2023 11:19:36 With:Marjan SAMPSON, Walker Pritchett, [facility], [facility] Address: [address] [place], [place] [address]di[facility] Hospital[facility]arl[facility], [address] [phone] When: Unknown Comments:Call Office in 2 weeks for results or follow-up Appt. [facility]06-21-2024 Evaluation + Plan noteExtracted from: Title:ANES Post-operative Note---General Author: Zaid Benz MD Date:12/23/23 Plan Transfer/Discharge: Transfer/Discharge Discharge when meets criteria ( To home ). Extracted from: Title:ANES Pre-operative Note 2022 Author:Zaid Rojas Date:12/23/23 Plan [place] Society of Anesthesiologists (ASA) physical status classification: Class III. Anesthetic Preoperative Plan: Anesthesia General. Future Appointments Appointment Date:01/27/2024 10:00:00 AM Scheduled Provider:Walker Phillip MD Location:[facility] Appointment Type:[facility] Follow Up Appointment Date:02/22/2024 01:20:00 PM Scheduled Provider:Yocasta SMITH, HEATER OPERATOR HELPER-Myron VILLATORO Location:[facility] [place] Appointment Type: Open Appointment Date:06/05/2024 01:00:00 PM Scheduled Provider:Alirio Ramirez MD [facility] [place] Appoint[place] Type:Cardiology Follow Up (FT) Future Scheduled Tests Laboratory* Hep B Core Ab, Tot 11/02/23 * Qusut-3-Ieozmxbvmfi 11/02/23 * B-Type Natriuretic Peptide 10/25/23 * [...] * Iron Level 11/02/23 * PT 11/02/23 [facility]05-23-2024 Hospital Discharge instructions Patient Education 11/24/2023 [...] asked to follow these instructions. Medicines Take srlh-dtv-iglptsa and prescription medicines only as told by your health care provider. Do not start taking any new medicine unless your health care provider has approved. These include znzx-bus-zuezlxk medicines, vitamins, herbs, and supplements. Some of [...] provider. Document Revised: 05/19/2022 Document Reviewed: 05/19/2022 TrashOut Patient Education 2022 CIRQY. 11/24/2023 19:09:12 Hepatomegaly Hepatomegaly Hepatomegaly is when [...] asked to follow these instructions. Medicines Take sewq-url-bhmmlif and prescription medicines only as told by your health care provider. Do not start taking any new medicine unless your health care provider has approved. These include ejqd-idj-zengsxn medicines, vitamins, herbs, and supplements. Some of [...] provider. Document Revised: 05/19/2022 Document Reviewed: 05/19/2022 TrashOut Patient Education 2022 CIRQY. 11/24/2023 19:09:07 Type 2 Diabetes Mellitus, Self-Care, [...] treat it right away. Always have a 43-szeqemnvl-hrxzjb carbohydrate snack with you to treat low [...] you how to adjust your dosage. Take wryr-hcf-vzmcncz and prescription medicines only as told by [...] your health care provider once every year. Thayne your teeth and gums two times a [...] with a certified diabetes care and education rn? Where can I find a support group for people with diabetes? Where to find more information For help and guidance and for more information about diabetes, please visit: [place] Diabetes Association (ADA): www.diabetes.org [place] Association of Diabetes Care and Education Specialists [...] provider. Document Revised: 11/18/2021 Document Reviewed: 11/18/2021 TrashOut Patient Education 2022 CIRQY. 11/24/2023 19:09:06 Mediterranean Diet Mediterranean Diet A [...] fresh fruits and vegetables in-season from local [place] markets. Buy plain frozen fruits and vegetables. [...] in common dishes like chili or lasagna. [place] with different cooking methods. Try roasting, broiling, [...] available, such as: ?Vegetable sticks with hummus. ?[place]arusian yogurt. ?Fruit and nut trail mix. Eat [...] Quinoa. Meats and other proteins Beans. Almonds. [place] seeds. Gem nuts. Peanuts. Cod. [place]. Scallops. Shrimp. Tuna. Tilapia. Clams. Oysters. Eggs. Poultry without skin. Dairy Low-fat milk. Cheese. Belarusian yogurt. Fats and oils Extra-virgin olive oil. Avocado oil. Grapeseed oil. Beverages Water. Red wine. Herbal tea. Sweets and desserts Belarusian yogurt with honey. Baked apples. Poached pears. [place] mix. Seasonings and condiments Basil. Cilantro. Coriander. [...] Fruit canned in syrup. Vegetables Deep-fried potatoes (cook islander fries). Grains Prepackaged pasta or rice dishes. [...] provider. Document Revised: 07/25/2020 Document Reviewed: 05/22/2020 TrashOut Patient Education 2022 CIRQY. Follow Up Care 10/26/2023 14:06:56 With:Yocasta MSN, HEATER OPERATOR HELPER-BUFFER OPERATOR, Myron Hamilton Address: [address] [place] [phone] When:Within 3 Month(s) Comments:chronic care [facility] [place] 05-09-2024 NoteEchocardiology Procedure Exam Date/Time Accession # Ordering Echo Transthoracic 11/08/2023 15:28 EDT [id number] Adma SAMPSON, Alirio Hooper CPT code 36017 [id number] Reason for Exam (Echo Transthoracic Complete) I50.30;Other (please specify) Report [address] [address] Adult Echocardiogram Report Name: CARMEN BLEDSOE Study Date: 11/08/2023 02:50 PM BP: 128/85 mmHg Patient Location: CD:[id number] [facility] HR: 66 : 1960 Gender: Female Height: 6 in Age: 62 yrs Ethnicity: [facility] Weight: 328 lb Reason For Study: CHF [...] Signed by: Alirio Ramirez MD Transcribed by: [facility] Technologist: [facility]04-24-2024 Hospital Discharge instructions Patient Education 10/26/2023 [...] by your health care provider. Medicines Take fjpy-kns-jbavjxw and prescription medicines only as told by [...] provider. Document Revised: 02/22/2022 Document Reviewed: 02/22/2022 TrashOut Patient Education 2022 CIRQY. 10/26/2023 08:53:45 Heart Failure, Self-Care Heart Failure, [...] when you have heart failure Medicines Take jqao-cov-qpbgbur and prescription medicines only as told by [...] provider. Document Revised: 09/28/2022 Document Reviewed: 01/10/2021 TrashOut Patient Education 2022 CIRQY. 10/26/2023 08:53:36 DASH Eating Plan DASH Eating [...] Dairy Whole or 2% milk, cream, and uxmb-hxp-dimv. Whole or full-fat cream cheese. Whole-fat or [...] more information National Heart, Lung, and Blood [place]: www.nhlbi.nih.gov [place] Heart Association: www.heart.org Academy of Nutrition and [...] provider. Document Revised: 05/23/2020 Document Reviewed: 05/23/2020 TrashOut Patient Education 2022 CIRQY. Follow Up Care 10/11/2023 15:08:26 With:Yocasta SMITH, HEATER OPERATOR HELPER-IRVING, Myron Hamilton Address: [address] [place] [phone] When:Within 1 Month(s) [facility] 04-08-2024 Hospital Discharge instructions Patient Education 10/10/2023 [...] treat it right away. Always have a 44-lxlgpszvo-rvikag carbohydrate snack with you to treat low [...] you how to adjust your dosage. Take vmsk-hkh-qklypwl and prescription medicines only as told by [...] your health care provider once every year. Thayne your teeth and gums two times a [...] with a certified diabetes care and education rn? Where can I find a support group for people with diabetes? Where to find more information For help and guidance and for more information about diabetes, please visit: [place] Diabetes Association (ADA): www.diabetes.org [place] Association of Diabetes Care and Education Specialists [...] provider. Document Revised: 11/18/2021 Document Reviewed: 11/18/2021 TrashOut Patient Education 2022 CIRQY. 10/10/2023 07:17:21 Heart Failure Exacerbation Heart Failure [...] Follow these instructions at home: Medicines Take qasy-ebk-blmifae and prescription medicines only as told by your health care provider. Do not stop taking your medicines or change the amount you take. If you are having problems or sideeffects from your medicines, talk to your health care provider. If you are having difficulty paying for your medicines, contact a social media specialist or your clinic. There are many programs [...] provider. Document Revised: 09/28/2022 Document Reviewed: 01/10/2021 TrashOut Patient Education 2022 CIRQY. Follow Up Care 10/07/2023 10:35:27 With:Yocasta MSN, HEATER OPERATOR HELPER-BUFFER OPERATOR, Myron Hamilton Address: [address] [place] [phone] When:Within 2 Week(s) [facility] + Plan note Diagnostic Tests Pending * CBC w/ Auto Diff 08/10/23 * Comprehensive Metabolic Panel 08/10/23 * HgbA1c 08/10/23 * Lipid Panel 08/10/23 * Microalbumin Level Urine 08/10/23 * D-Dimer 08/10/23 Future Scheduled Tests Laboratory* Vitamin D 25 Hydroxy 10/13/22 * Creatine Kinase 10/13/22 Radiology* US LE Venous Duplex Insufficiency Bilat 10/13/22 [facility] [place] 02-06-2024 Hospital Discharge instructions Patient Education [...] pray, or go to a place of mosque. Do some deep breathing. To do this, [...] sugars, or salt (sodium). General instructions Take hszx-tzu-nrlsazl and prescription medicines only as told by [...] (ADAA): www.adaa.org Mental Health [place]: www.mentalhealthamerica.net National [place] on Mental Illness: www.param.org Contact a health [...] department or: Call your local emergency services (882 in the [place] Call a suicide crisis helpline, such as the National Suicide Prevention Lifeline at or 983 in the [place] This is open 24 hours a day in the [place] Text the Crisis Text Line at 522628 (in the [place] Summary If you are [...] provider. Document Revised: 01/13/2022 Document Reviewed: 04/30/2020 TrashOut Patient Education 2022 CIRQY. 08/09/2023 20:20:14 Hypertension, Adult Hypertension, Adult High [...] follow-up visits. This is important. Medicines Take qmvg-rqk-wbfygij and prescription medicines only as told by [...] provider. Document Revised: 04/27/2022 Document Reviewed: 04/27/2022 TrashOut Patient Education 2022 CIRQY. 08/09/2023 20:20:10 Type 2 Diabetes Mellitus, Self-Care, [...] treat it right away. Always have a 30-xnemdowrd-mghuqw carbohydrate snack with you to treat low [...] you how to adjust your dosage. Take oagw-tnf-cjckwhs and prescription medicines only as told by [...] your health care provider once every year. Thayne your teeth and gums two times a [...] with a certified diabetes care and education rn? Where can I find a support group for people with diabetes? Where to find more information For help and guidance and for more information about diabetes, please visit: [place] Diabetes Association (ADA): www.diabetes.org [place] Association of Diabetes Care and Education Specialists [...] provider. Document Revised: 11/18/2021 Document Reviewed: 11/18/2021 TrashOut Patient Education 2022 CIRQY. 08/09/2023 20:20:09 Health Risks of Smoking Health [...] Department of Health and Human Services: www.smokefree.gov [place] Lung Association: www.freedomfromsmoking.org [place] Heart Association: www.heart.org Where to find more [...] provider. Document Revised: 06/22/2022 Document Reviewed: 06/22/2022 TrashOut Patient Education 2022 CIRQY. 08/09/2023 20:20:08 DASH Eating Plan DASH Eating [...] Dairy Whole or 2% milk, cream, and cbkh-ghj-ophz. Whole or full-fat cream cheese. Whole-fat or [...] more information National Heart, Lung, and Blood [place]: www.nhlbi.nih.gov [place] Heart Association: www.heart.org Academy of Nutrition and [...] provider. Document Revised: 05/23/2020 Document Reviewed: 05/23/2020 TrashOut Patient Education 2022 CIRQY. Follow Up Care 11/26/2022 13:53:51 With:Yocasta SMITH, HEATER OPERATOR HELPER-BUFFER OPERATOR, Myron Hamilton Address: [address] [place] [phone] When:Within 6 Month(s) Comments:chronic care [facility] [place] 01-18-2024 History of Present illness Narrative* Arlene Zuñiga - 07/21/2023 10:30 AM EST Occupational Therapy [facility] Date: 07/21/2023 Patient Name: Carmen Bledsoe : 1960 Pt Cancelled Appt due to left voice mail with no reason for cancel. Arlene Zuñiga Date: 07/21/2023 [facility] History of Present illness Narrative* Lisseth Luu - 07/20/2023 3:00 PM EST Physical Therapy [facility] Date: 07/20/2023 Patient Name: Carmen Bledsoe : 1960 Patient called to cancel Appt., did not state a reason for cancellation. Lisseth Luu Date: 07/20/2023 [facility] History of Present illness Narrative* Lisseth Luu - 07/14/2023 10:30 AM EST Physical Therapy [facility] Date: 07/14/2023 Patient Name: Carmen Bledsoe : 1960 Patient called to cancel, did not give a reason. She said she will be at her next scheduled appointment on 07/19/23. Lisseth Bell Date: 07/14/2023 [facility] History of Present illness Narrative* Arlene Zuñiga - 07/08/2023 1:30 PM EST Occupational Therapy [facility] Date: 07/08/2023 Patient Name: Carmen Bledsoe : 1960 Pt Cancelled Appt due to no reason for cancel. Arlene Zuñiga Date: 07/08/2023 [facility] History of Present illness Narrative* Negra, Fariba S - 07/06/2023 10:30 AM EST Physical Therapy [facility] Date: 07/06/2023 Patient Name: Carmen Bledsoe : 1960 Patient is not able to a make this appointment, she rescheduled for tomorrow. Fariba S Shock Date: 07/06/2023 documented in this [facility]11-07-2023 Hospital Discharge instructions Patient Education 05/09/2023 22:10:36 [...] back becomes more flexible: 1.Get into a zjzxv-vqr-fxyqa position on a firm bed or the [...] provider. Document Revised: 12/15/2021 Document Reviewed: 09/02/2021 TrashOut Patient Education 2022 CIRQY. Follow Up Care 05/06/2023 08:05:37 With:Ansley Carrero PA-C Address: [address] [place] [phone] When: only if needed Comments:Only if needed [facility] [place] 10-23-2023 Hospital Discharge instructions Patient [...] Follow these instructions at home: Medicines Take vkkq-kum-zbxyuxq and prescription medicines only as told by your health care provider. Ask your health care provider if the medicine prescribed to you: ?Requires you to avoid driving or using heavy machinery. ?Can cause constipation. You may need to take these actions to prevent or treat constipation: ?Drink enough fluid to keep your urine pale yellow. ?Take uaxu-ywk-uqnnwiw or prescription medicines. ?Eat foods that are [...] provider. Document Revised: 07/09/2019 Document Reviewed: 07/09/2019 TrashOut Patient Education 2022 CIRQY. 04/25/2023 19:33:56 Back Exercises Back Exercises The [...] back becomes more flexible: 1.Get into a nhmqc-hda-hzjxi position on a firm bed or the [...] provider. Document Revised: 12/15/2021 Document Reviewed: 09/02/2021 TrashOut Patient Education 2022 CIRQY. Follow Up Care 04/21/2023 13:02:20 With:Yocasta SMITH, HEATER OPERATOR HELPER-BUFFER OPERATOR, Myron Hamilton Address: [address] [place] [phone] When: only if needed [facility] [place] 09-14-2023 Hospital Discharge [...] treat it right away. Always have a 43-auxeyqxwr-nftnoo carbohydrate snack with you to treat low [...] you how to adjust your dosage. Take olbu-avz-bpflicj and prescription medicines only as told by [...] your health care provider once every year. Thayne your teeth and gums two times a [...] with a certified diabetes care and education rn? Where can I find a support group for people with diabetes? Where to find more information For help and guidance and for more information about diabetes, please visit: [place] Diabetes Association (ADA): www.diabetes.org [place] Association of Diabetes Care and Education Specialists [...] provider. Document Revised: 11/18/2021 Document Reviewed: 11/18/2021 TrashOut Patient Education 2022 CIRQY. 03/17/2023 14:42:58 DASH Eating Plan DASH Eating [...] Dairy Whole or 2% milk, cream, and ewdo-knl-brql. Whole or full-fat cream cheese. Whole-fat or [...] more information National Heart, Lung, and Blood [place]: www.nhlbi.nih.gov [place] Heart Association: www.heart.org Academy of Nutrition and [...] provider. Document Revised: 05/23/2020 Document Reviewed: 05/23/2020 TrashOut Patient Education 2022 CIRQY. 03/17/2023 14:42:56 Insomnia Insomnia Insomnia is a [...] go back to bed. General instructions Take hmiy-crn-dupbrao and prescription medicines only as told by [...] the National Suicide Prevention Lifeline at or 406. This is open 24 hours a day. Text the Crisis Text Line at 113974. Summary Insomnia is a sleep disorder that [...] provider. Document Revised: 05/31/2022 Document Reviewed: 05/31/2022 Elsevier Patient Education 2022 CIRQY. Follow Up Care 03/15/2023 07:59:17 With:Yocasta SMITH, HEATER OPERATOR HELPER-IRVING, Myron Hamilton Address: [address] [place] [phone] When: only if needed Comments:keep may appt, fax sleep study to [facility] [place] 05-25-2023 Hospital Discharge instructions Patient [...] cheese. Low-sodium cottage cheese. Fats and oils [place], canola, soybean, flaxseed, avocado, or sunflower oil. Sweets and desserts Applesauce. Granola bars. Sugar-free pudding and gelatin. Frozen fruit bars. Seasoning and other foods Fresh and dried herbs. Lemon or [place] juice. Vinegar. Low-sodium ketchup. Salt- free marinades, saladdressings, sauces, and seasonings. The items listed above may not be a complete list of foods and beverages you can eat. Contact a dietitian for more information. Foods to avoid Fruits Fruits that are dried with sodium-containing preservatives. Vegetables Canned vegetables. Frozen vegetables with sauce or seasonings. Creamed vegetables. Pakistani fries. Onion rings. Pickled vegetables and sauerkraut. [...] Salted nuts and seeds. Dairy Whole milk, dcek-dtn-kgxc, and cream. Buttermilk. Processed cheese, cheese spreads, [...] provider. Document Revised: 02/02/2021 Document Reviewed: 02/02/2021 TrashOut Patient Education 2022 [employer]Out Inc. 11/25/2022 15:14:21 DASH Eating Plan DASH Eating [...] Dairy Whole or 2% milk, cream, and qtxh-bju-vptd. Whole or full-fat cream cheese. Whole-fat or [...] more information National Heart, Lung, and Blood [place]: www.nhlbi.nih.gov [place] Heart Association: www.heart.org Academy of Nutrition and [...] provider. Document Revised: 05/23/2020 Document Reviewed: 05/23/2020 TrashOut Patient Education 2022 CIRQY. Follow Up Care 11/10/2022 07:47:50 With:Yocasta SMITH, HEATER OPERATOR HELPER-IRVING, Myron Hamilton Address: [address] [place] [phone] When:Within 6 Month(s) Comments:chronic care [facility] [place] 04-12-2023 Hospital Discharge [...] when you have heart failure Medicines Take xowi-chl-icppmdn and prescription medicines only as told by [...] 10/03/2019 Document Revised: 10/02/2019 Document Reviewed: 10/03/2019 TrashOut Patient Education 2020 [employer]. 10/13/2022 08:14:26 Heart Failure Medicines Heart Failure [...] 11/04/2017 Document Revised: 07/05/2018 Document Reviewed: 11/04/2017 TrashOut Patient Education 2020 CIRQY. 10/13/2022 08:14:22 Heart Failure Eating Plan Heart [...] lifestyle and working with a diet and geospatial specialist (dietitian)to choose the right foods may help [...] cheese. Low-sodium cottage cheese. Fats and oils [place], canola, soybean, flaxseed, or sunflower oil. Avocado. Sweets and desserts Apple sauce. Granola bars. Sugar-free pudding and gelatin. Frozen fruit bars. Seasoning and other foods Fresh and dried herbs. Lemon or [place] juice. Vinegar. Low-sodium ketchup. Salt- free marinades, [...] vegetables with sauce or seasonings. Creamed vegetables. Pakistani fries. Onion rings. Pickled vegetables and sauerkraut. [...] Salted nuts and seeds. Dairy Whole milk, giiz-dez-xkcy, and cream. Buttermilk. Processed cheese, cheese spreads, [...] 11/04/2017 Document Revised: 08/16/2019 Document Reviewed: 11/04/2017 TrashOut Patient Education 2020 [employer]. 10/13/2022 08:14:21 Heart Failure and Exercise [...] 11/01/2017 Document Revised: 11/04/2017 Document Reviewed: 11/01/2017 TrashOut Patient Education 2020 [employer]. 10/13/2022 08:14:18 Form - Daily Weight [...] 09/01/2007 Document Revised: 06/19/2018 Document Reviewed: 06/19/2018 ElseConjure Patient Education 2020 CIRQY. Follow Up Care 09/29/2022 12:46:37 With:Carmen Haley DO Address: When:Within 1 Month(s) [facility]03-29-2023 Hospital Discharge instructions Patient Education 09/29/2022 [...] require a prescription and some youcan purchase ekde-sfv-erogjaf. Medicines may have nicotine in them to [...] for support and encouragement. Call telephone quitlines (4-428-AHZHNOW), reach out to support groups, or work [...] 06/14/2002 Document Revised: 09/07/2019 Document Reviewed: 09/08/2019 TrashOut Patient Education 2020 CIRQY. 09/29/2022 12:38:01 Heart Failure Eating Plan Heart [...] lifestyle and working with a diet and geospatial specialist (dietitian)to choose the right foods may help [...] cheese. Low-sodium cottage cheese. Fats and oils [place], canola, soybean, flaxseed, or sunflower oil. Avocado. Sweets and desserts Apple sauce. Granola bars. Sugar-free pudding and gelatin. Frozen fruit bars. Seasoning and other foods Fresh and dried herbs. Lemon or [place] juice. Vinegar. Low-sodium ketchup. Salt- free marinades, [...] vegetables with sauce or seasonings. Creamed vegetables. Pakistani fries. Onion rings. Pickled vegetables and sauerkraut. [...] Salted nuts and seeds. Dairy Whole milk, zypo-bia-blzt, and cream. Buttermilk. Processed cheese, cheese spreads, [...] 11/04/2017 Document Revised: 08/16/2019 Document Reviewed: 11/04/2017 [employer] Patient Education 2020 [employer] 09/29/2022 12:37:57 Form - Daily Weight [...] 09/01/2007 Document Revised: 06/19/2018 Document Reviewed: 06/19/2018 [employer] Patient Education 2019 [employer]. Follow Up Care 09/22/2022 10:08:32 With:Carmen Haley DO Address: When:Within 2 Week(s) [facility]2023 Hospital Discharge instructions Patient Education 09/24/2022 [...] 06/22/2004 Document Revised: 04/13/2019 Document Reviewed: 11/29/2016 [employer] Patient Education 2020 GPal Follow Up Care 09/13/2022 14:16:08 With:Yocasta SMITH, HEATER OPERATOR HELPER-BUFFER OPERATOR, Myron Hamilton Address: [address] [place] [phone] When: Unknown Comments:see nurse for Dr Haley's lab Tuesday. Next primary care visit in November [facility] [place] 03-22-2023 Hospital Discharge instructions [...] 06/20/2006 Document Revised: 09/07/2019 Document Reviewed: 09/07/2019 [employer] Patient Education 2020 [employer]. 09/22/2022 09:54:51 Heart Failure Medicines Heart Failure [...] 11/04/2017 Document Revised: 07/05/2018 Document Reviewed: 11/04/2017 [employer] Patient Education 2020 [employer]. 09/22/2022 09:54:49 Heart Failure Eating Plan Heart [...] lifestyle and working with a diet and geospatial specialist (dietitian)to choose the right foods may help [...] cheese. Low-sodium cottage cheese. Fats and oils [place], canola, soybean, flaxseed, or sunflower oil. Avocado. Sweets and desserts Apple sauce. Granola bars. Sugar-free pudding and gelatin. Frozen fruit bars. Seasoning and other foods Fresh and dried herbs. Lemon or akiachak juice. Vinegar. Low-sodium ketchup. Salt- free marinades, [...] vegetables with sauce or seasonings. Creamed vegetables. Pakistani fries. Onion rings. Pickled vegetables and sauerkraut. [...] Salted nuts and seeds. Dairy Whole milk, asrq-lks-ixmj, and cream. Buttermilk. Processed cheese, cheese spreads, [...] 11/04/2017 Document Revised: 08/16/2019 Document Reviewed: 11/04/2017 [employer] Patient Education 2020 [employer] 09/22/2022 09:54:44 Heart Failure Action Plan [...] symptoms. Follow these instructions at home: Take dzud-ewp-bhjjfys and prescription medicines only as told by your health care provider. Weigh yourself daily. Your target weight is lb ( kg). ?Call your health care provider if you gain more than lb ( kg) in a day, or more than lb ( kg) in one week. Eat a heart-healthy diet. Work with a diet and geospatial specialist (dietitian) to create an eatingplan that is best for you. Keep all follow-up visits as told by your health care provider. This is important. Where to find more information [place] [employer]: www.heart.org Summary Follow the action [...] 07/30/2017 Document Revised: 06/02/2018 Document Reviewed: 07/30/2017 [employer] Patient Education 2020 [employer]Y. 09/22/2022 09:53:36 Pulmonary Edema Pulmonary Edema Pulmonary [...] Follow these instructions at home: Medicines Take nozc-lkr-dgywspc and prescription medicines only as told by [...] infections or injury to the lungs. Take wutv-hhr-ebbdkdz and prescription medicines only as told by your health care provider. This information is not intended to replace advice given to you by your health care provider. Make sure you discuss any questions you have with your health care provider. Document Released: 09/10/2003 Document Revised: 06/02/2018 Document Reviewed: 08/31/2017 [employer] Patient Education 2020 [employer]. 09/22/2022 09:53:16 Steps to Quit Smoking Steps [...] require a prescription and some youcan purchase ixtr-kcz-toimfgx. Medicines may have nicotine in them to [...] for support and encouragement. Call telephone quitlines (6-653-OXBG-NOW), reach out to support groups, or work [...] 06/14/2002 Document Revised: 09/07/2019 Document Reviewed: 09/08/2019 [employer]Out Patient Education 2020 [employer] 09/22/2022 09:53:10 Health Risks of Smoking Health [...] these methods. Where to find more information [place] [employer]: www.lung.org [place] [employer]: www.cancer.org Summary Smoking cigarettes is [...] 07/28/2005 Document Revised: 09/21/2018 Document Reviewed: 06/24/2017 [employer] Patient Education 2020 [employer]. 09/22/2022 09:52:53 Cooking With Less Salt Cooking With Less Salt Cooking with less salt is one way to reduce the amount of sodium you get from food. Depending on your condition and overall health, your health care provider or diet and geospatial specialist (dietitian) may recommend that you reduce your [...] foods. Use sodium-free baking soda when baking. [place], braise, or roast foods to add flavor [...] foods you can pair it with. Herbs Rosebud leaves Soups, meat and vegetable dishes, and spaghetti sauce. Basil Guyanese dishes, soups, pasta, and fish dishes. Cilantro Meat, poultry, and vegetable dishes. Lucas powder Marinades and Tristanian dishes. Chives Salad dressings and potato dishes. Cumin Tristanian dishes, couscous, and meat dishes. Dill Fish dishes, sauces, and salads. Fennel Meat and vegetable dishes, breads, and cookies. Garlic (do not use garlic salt) Guyanese dishes, meat dishes, salad dressings, and sauces. Marjoram Soups, potato dishes, and meat dishes. Oregano Pizza and spaghetti sauce. Parsley Salads, soups, pasta, and meat dishes. Zakia Guyanese dishes, salad dressings, soups, and red meats. [...] and low-sodium cheeses. Good cheese choices include Moroccan, [place] Kameron, and mozzarella. Always check the label [...] 06/20/2006 Document Revised: 06/02/2018 Document Reviewed: 06/28/2017 [employer] Patient Education 2020 [employer]Y. 09/22/2022 09:52:44 BMI for Adults BMI for [...] height. This can be done either in [place] (U.S[place] or metric measurements. Note that charts are available to help you find your BMI quickly and easily without having to do these calculations yourself. To calculate your BMI in [place] ([place] measurements, your health care provider will: [...] medical problems. BMI can be measured using [place] measurements or metric measurements. To interpret your [...] 03/01/2005 Document Revised: 06/02/2018 Document Reviewed: 05/03/2018 [employer] Patient Education 2020 CIR[employer]Y. Follow Up Care 09/17/2022 09:26:53 With:Carmen Haley DO Address: When:09/29/2022 [facility]03-13-2023 Progress note Author José Sanchez [facility] September 13, 2022 9:31pm Note Date/Time September 13, 2022 9:3 1pm [facility] [address] [place] [address] Hospitalist Progress Note Signed Patient: Carmen Bledsoe MR#: [id number] : 1960 Acct:[id number] Age/Sex: 61 / F Adm Date: 3 Loc: Room: [address] [place] [address] Type: ADM IN Attending Dr: José Sanchez [...] 09/10/22 15:38 Nitroglycerin 0.4 Mg Tab.Subl SUBLINGUAL 03/09/24 15:37 Q5MIN.X3 PRN Chest Pain Pantoprazole Sodium [...] <Electronically signed by José Sanchez MD> 09/13/222130 [facility] Work Phone: 1(723) 704-743803-12-2023 Progress note Author Marilyn Sun [facility] September 12, 2022 12:22pm Note Date/Time September 12, 2022 12: 13pm [facility] [address] [place] [address] Hospitalist Progress Note Signed Patient: Carmen Bledsoe MR#: [id number] : 1960 Acct:[id number] Age/Sex: 61 / F Adm Date: 3 Loc: 4P Room: [address] [place] [address] Type: ADM IN Attending Dr: Marilyn Sun [...] <Electronically signed by Marilyn Sun MD> 09/12/22 [facility] Work Phone: 1(856) 159-137203-11-2023 History and physical note Author Marilyn Sun [facility] September 11, 2022 11:38am Note Date/Time September 10, 2022 1:3 6pm [facility] [address] [place] [address] Hospitalist H&P Signed with Anastacio Patient: Carmen Bledsoe MR#: [id number] : 1960 Acct:[id number] Age/Sex: 61 / F Adm Date: 3 Loc: 4N Room: 8M7025-9 Type: ADM IN Attending Dr: Marilyn Sun [...] % (Auto) 21.5 % (.) 09/10/22 11:26 [place] % (Auto) 5.1 % (.) 09/10/22 11:26 Eos % (Auto) 1.6 % (.) 09/10/22 11:26 Baso % (Auto) 1.1 % (.) 09/10/22 11:26 Nucleat RBC Rel Count 0.3 /100 WBC (0-0.5) 09/10/22 11:26 Neut # (Auto) 3.7 x10E3/uL (1.8-7.7) 09/10/22 11:26 Lymph # (Auto) 1.1 x10E3/uL (1.00-4.8) 09/10/22 11:26 [place] # (Auto) 0.3 x10E3/uL (0.0-0.8) 09/10/22 11: Eos # (Auto) 0.1 x10E3/uL (0.0-0.45) 09/10/22 11:26 Baso # (Auto) 0.1 x10E3/uL (0.0-0.2) 09/10/22 11:26 Monocyte Dist Width 18.14 % (0.00-20.00) 09/10/22 [...] 11:26 Total Bilirubin 0.4 mg/dl (0.3-1.0) 09/10/22 11: Direct Bilirubin 0.10 mg/dL (0.03-0.18) 09/10/22 11:26 [...] <Electronically signed by Marilyn Sun MD> 09/10/22 1541 [facility] Work Phone: 1(942) 901-574903-11-2023 Progress note Author Marilyn Sun [facility] September 11, 2022 11:36am Note Date/Time September 11, 2022 11: 07am [facility] [address] [place] [address] Hospitalist Progress Note Signed Patient: Carmen Bledsoe MR#: [id number] : 1960 Acct:[id number] Age/Sex: 61 / F Adm Date: 3 Loc: N Room: [address] [place] [address] Type: ADM IN Attending Dr: Marilyn Sun [...] agreement with the plan. Will transfer to [facility] for now. Marilyn Escobedo MD Internal Medicine Hospitalist Attending Physician Documented By: Marilyn Sun MD 09/11/22 11 04 Signed By: <Electronically signed by Marilyn Sun MD> 09/11/22 3435 [facility] Work Phone: 1(504) 792-765203-06-2023 Hospital Discharge instructions Patient Education 09/06/2022 12:23:58 [...] hospital. Follow these instructions at home: Take gjcl-cjp-ntvlofx and prescription medicines only as told by [...] cantaloupe, kiwi, oranges, tomatoes, asparagus, and potatoes. ?[place] juice. ?Tomato juice. ?Red meats. ?Yogurt. Keep [...] 06/20/2006 Document Revised: 01/31/2019 Document Reviewed: 01/31/2019 [employer]ashOut Patient Education 2020 [employer]Y. Follow Up Care 08/23/2022 15:13:00 With:Yocasta SMITH, HEATER OPERATOR HELPER-BUFFER OPERATOR, Myron Hamilton Address: [address] [place] [phone] When: Unknown Comments:telephone result to maribel. See referrals [facility] [place] 02-09-2023 Hospital Discharge instructions Patient Education 08/12/2022 [...] plan? Your health care provider or certified shorthand reporter can help you make a plan for [...] stress. Your health care provider or certified shorthand reporter can help you make a plan for [...] 09/09/2004 Document Revised: 01/12/2018 Document Reviewed: 11/29/2016 [employer]ashOut Patient Education 2020 CIRQY. Follow Up Care 08/12/2022 10:06:58 With:Yocasta SMITH, HEATER OPERATOR HELPER-BUFFER OPERATOR, Myron Hamilton Address: [address] [place] [phone] When: Unknown Comments:Echo order for [place]. Telephone result to patient [facility] [place] 06-29-2022 Hospital Discharge [...] of hard liquor (1 oz). Medicines Take rvbr-omj-cuztncr and prescription medicines only as told by [...] Centers for Disease Control and Prevention: www.cdc.gov/heartdisease [place] Heart Association: www.heart.org ?Take a free online [...] 02/01/2005 Document Revised: 07/05/2018 Document Reviewed: 07/05/2018 [employer]ashOut Patient Education Memobox. Follow Up Care 12/24/2021 08:31:22 With:Parish PATE Address: [address] [place], [place] [address] [address]- When:Within 6 Month(s) [facility] [place] 01-10-2022 History of Present illness [...] BMR: 2209 calories Est. total calorie needs: ~4207-5613 Client overall goal for weight is for [...] pizza, or consume foods from community, including english food or fast foods. Has not been [...] the referral. Education session duration: 60 minutes; ([phone]). Reminder to ordering Physician/Provider: Diabetes and CKD (non-dialysis) patients may have 2 hours of MNT education in subsequent years. Hours can be spread over any number of visits. [facility] Phone: [phone]) [phone] History of Present illness Narrative* Sarah Salmon [...] Carmen Bledsoe Referring Provider: DARLEEN Bernardo NP [place] to learning: Considerations: []Language []Emotional []Health Literacy []Cognitive []Memory changes []Financial []Cultural []Congregation []Vision []Hearing []Speech []Lack of desire []Literacy [...] the relationship of blood glucose levels to laborer marine terminal complications of diabetes.Identify preventative measures and standard [...] ) ADA website: Http://www.diabetes.org ( ) Http: //www.Sighter.[employer] Compliance Solutions/-russ/faq.htm ( ) Diabetes Forecast [place] you may get this information on the ADA web site. ( ) Diabetes Interview - [place] ( ) Diabetes Self Management (bi-monthly magazine) ( x ) Support group: [place] third Tuesday of the month at 9 am ( ) Health Journeys Image Paths (relaxation tapes for people with Diabetes) ( ) Your suggestions: Sarah Salmon RN [facility] Diabetes clinic educator 07/09/2021 10:17 AM documented in this [facility] [employer] Work Phone: 1([phone]) 765-533512-30-2021 History of Present illness Narrative* Sarah Salmon [...] Carmen Bledsoe Referring Provider: DARLEEN Bernardo NP [place] to learning: Considerations: []Language []Emotional []Health Literacy []Cognitive []Memory changes []Financial []Cultural []Congregation []Vision []Hearing []Speech []Lack of desire []Literacy [...] not started working on diet because of [place]. Given a one week food diary and [...] the relationship of blood glucose levels to laborer marine terminal complications of diabetes.Identify preventative measures and standard [...] ) ADA website: Http://www.diabetes.org ( ) Http: //www.Sighter.[employer]/-russ/faq.htm ( ) Diabetes Forecast [place] you may get this information on the ADA web site. ( ) Diabetes Interview - [place] ( ) Diabetes Self Management (bi-monthly magazine) ( x ) Support group: [place] tuesday of the month at 9 am ( ) Health Journeys Image Paths (relaxation tapes for people with Diabetes) ( ) Your suggestions: Sarah Salmon RN [facility] Diabetes clinic educator 07/02/2021 10:41 AM documented in this [facility] [employer] Work Phone: evaluation + Plan note Future Appointments Appointment Date:07/09/2022 11:00:00 AM Scheduled Provider:Parish PATE Location:[facility] Appointment Type: Open [facility] Evaluation + Plan [facility] Evaluation + Plan note Future Appointments Appointment Date:09/24/2022 02:40:00 PM Scheduled Provider:EFREN GRIFFINFPLupis Location:[facility] Appointment Type: ER/Hospital Follow Up Appointment Date:09/29/2022 11:30:00 AM Scheduled Provider:Carmen Haley DO [facility] Appointment Type:Cardiology Follow Up (FT) Future Scheduled Tests Laboratory* B-Type Natriuretic Peptide 09/22/22 * Basic Metabolic Panel 09/22/22 * Basic Metabolic Panel 09/22/22 Radiology* NM Myocardial Spect Rest/Stress 2 Day [facility] Future App[facility]ments Appointment Date:09/27/2022 10:40:00 AM Scheduled Provider: Location:[facility] Appointment Type: Nurse Visit Appointment Date:09/29/2022 11:30:00 AM Scheduled Provider:Carmen Haley DO [facility] Appointment Type:Cardiology Follow Up (FT) Appointment Date:11/26/2022 02:40:00 PM Scheduled Provider:Yocasta SMITH, HEATER OPERATOR HELPER-Myron VILLATORO Location:[facility] Appointment Type: Open Future Scheduled Tests Laboratory* B-Type Natriuretic Peptide 09/22/22 * Basic Metabolic Panel 09/22/22 * Basic Metabolic Panel 09/22/22 Radiology* NM Myocardial Spect Rest/Stress 2 Day 09/22/22 [facility] Evaluation + Plan note Future Appointments Appointment Date:09/29/2022 11:30:00 AM Scheduled Provider:Carmen Haley DO [facility] Appointment Type:Cardiology Follow Up (FT) Appointment Date:11/26/2022 02:40:00 PM Scheduled Provider:SRINIVAS Pereyra Tammy L. Location:[facility] Appointment Type: Open Future Scheduled Tests Laboratory* Basic Metabolic Panel 09/22/22 Radiology* NM Myocardial Spect Rest/Stress 2 Day 09/22/22 [facility] [place] Evaluation + Plan note Future Appointments Appointment Date:09/29/2022 11:30:00 AM Scheduled Provider:Carmen Haley DO [facility] Appointment Type:Cardiology Follow Up (FT) Appointment Date:11/26/2022 02:40:00 PM Scheduled Provider:SRINIVAS Pereyra Tammy L. Location:[facility] Appointment Type: Open Diagnostic Tests Pending * Basic Metabolic Panel 09/27/22 Future Scheduled Tests Laboratory* Basic Metabolic Panel 09/22/22 Radiology* NM Myocardial Spect Rest/Stress 2 Day 09/22/22 [facility] App[facility]ments Appointment Date:10/13/2022 09:00:00 AM Scheduled Provider:Carmen Haley DO [facility] Appointment Type:Cardiology Follow Up (FT) Appointment Date:10/18/2022 01:40:00 PM Scheduled Provider:Lupis SCHWARTZ MD, FAAFP Location:[facility] Appointment Type: Open Appointment Date:11/26/2022 02:40:00 PM Scheduled Provider:SRINIVAS Pereyra Tammy L. Location:[facility] Appointment Type: Open Future Scheduled Tests Laboratory* Basic Metabolic Panel 09/22/22 Radiology* NM Myocardial Spect Rest/Stress 2 Day 09/22/22 [facility] Future Appointments Appointment Date:10/13/2022 09:00:00 AM Scheduled Provider:Carmen Haley DO [facility] Appointment Type:Cardiology Follow Up (FT) Appointment Date:10/18/2022 01:40:00 PM Scheduled Provider:Lupis SCHWARTZ MD, FAAFP Location:[facility] Appointment Type:FM Open Appointment Date:10/19/2022 02:00:00 PM Scheduled Provider: Location:FT.[facility] Appointment Type:CV EKG (FT) Appointment Date:10/19/2022 02:30:00 [...] 02:40:00 PM Scheduled Provider:SRINIVAS Pereyra Tammy L. [facility]: Open Future Scheduled Tests Radiology* NM Myocardial Spect Rest/Stress 2 Day 10/19/22 [facility] [place] Evaluation + Plan note Future Appointments Appointment Date:10/18/2022 01:40:00 PM Scheduled Provider:Lupis SCHWARTZ MD, FAAFP Location:[facility] Appointment Type:FM Open Appointment Date:10/19/2022 02:00:00 PM Scheduled Provider: [facility] Type:CV EKG () Appointment Date:10/19/2022 02:30:00 PM Scheduled Provider: Location[facility] Appointment Type:NM Myocard Spect Multi Rest/Stress-Res Appointment Date:10/19/2022 03:30:00 PM Scheduled Provider: Location[facility] Appointment Type:NM Myocard Spect Multi Rest/Stress - R Appointment Date:10/20/2022 02:30:00 PM Scheduled Provider: [facility] Appointment Type:NM Myocard Spect MultiRest/Stress-Stre Appointment Date:10/20/2022 03:30:00 PM Scheduled Provider: [facility] Appointment Type:NM Myocard Spect Multi Rest/Stress - S Appointment Date:11/26/2022 02:40:00 PM Scheduled Provider:SRINIVAS Pereyra Tammy L. [facility]: Open Future Scheduled Tests Laboratory* Vitamin D 25 Hydroxy 10/13/22 * Creatine Kinase 10/13/22 Radiology* US LE Venous Duplex Insufficiency Bilat 10/13/22 * US PVR Lower EXT Complete Bilat 10/13/22 * NM Myocardial Spect Rest/Stress 2 Day 10/19/22 [facility] App[facility]ments Appointment Date:05/30/2023 02:00:00 PM Scheduled Provider:SRINIVAS Pereyra Tammy L. Location:[facility] Appointment Type: Open Future Scheduled Tests Laboratory* Vitamin D 25 Hydroxy 10/13/22 * Creatine Kinase 10/13/22 Radiology* US LE Venous Duplex Insufficiency Bilat 10/13/22 [facility] Evaluation + Plan note Future Appointments Appointment Date:04/26/2023 10:00:00 AM Scheduled Provider:Alirio Ramirez MD [facility] [place] Appointment Type:Cardiology Follow Up (FT) Appointment Date:05/30/2023 02:00:00 PM Scheduled Provider:SRINIVAS Peryera Tammy L. Location:[facility] Appointment Type: Open Future Scheduled Tests Laboratory* Vitamin D 25 Hydroxy 10/13/22 * Creatine Kinase 10/13/22 Radiology* US LE Venous Duplex Insufficiency Bilat 10/13/22 * US PVR Lower EXT Complete Bilat [facility]/11/23 [facility] App[facility]ments Appointment Date:05/09/2023 01:00:00 PM Scheduled Provider: [facility] Appointment Type:US Duplex Procedures (FT) Appointment Date:05/30/2023 02:00:00 PM Scheduled Provider:SRINIVAS Pereyra Tammy L. Location:[facility] Appointment Type: Open Future Scheduled Tests Laboratory* Vitamin D 25 Hydroxy 10/13/22 * Creatine Kinase 10/13/22 Radiology* US PVR w/ Exercise 05/09/23 * US LE Venous Duplex Insufficiency Bilat 10/13/22 [facility] Evaluation + Plan note Future Appointments Appointment Date:07/25/2023 02:00:00 PM Scheduled Provider:SRINIVAS Pereyra Tammy L. Location:[facility] Appointment Type: Open Future Scheduled Tests Laboratory* Vitamin D 25 Hydroxy 10/13/22 * Creatine Kinase 10/13/22 Radiology* US LE Venous Duplex Insufficiency Bilat 10/13/22 [facility] Future Appointments Appointment Date:10/25/2023 03:00:00 PM Scheduled Provider:Alirio Ramirez MD [facility] Appointment Type:Cardiology Follow Up (FT) Appointment Date:10/26/2023 01:20:00 PM Scheduled Provider:SRINIVAS Pereyra Tammy L. Location:[facility] Appointment Type: Open Appointment Date:11/02/2023 10:30:00 AM Scheduled Provider:Walker Phillip MD [facility] Appointment Type:[facility] New Patient Future Scheduled Tests Laboratory* Vitamin D 25 Hydroxy 10/13/22 * Creatine Kinase 10/13/22 Radiology* US LE Venous Duplex Insufficiency Bilat 10/13/22 [facility] [place] Evaluation + Plan note Future Appointments Appointment Date:10/26/2023 01:20:00 PM Scheduled Provider:SRINIVAS Pereyra Tammy L. Location:[facility] Appointment Type: Open Appointment Date:11/02/2023 10:30:00 AM Scheduled Provider:Walker Phillip MD [facility] Appointment Type:BAD New Patient Appointment Date:11/10/2023 03:00:00 PM Scheduled Provider: Location:[facility] Appointment Type: Nurse Visit Appointment Date:12/06/2023 03:15:00 PM Scheduled Provider:Alirio Ramirez MD [facility] Appointment Type:Cardiology Follow Up (FT) Future Scheduled Tests Laboratory* B-Type Natriuretic Peptide 10/25/23 * Basic Metabolic Panel 10/25/23 Radiology* Echo Transthoracic Complete 10/25/23 [facility] App[facility]ments Appointment Date:11/02/2023 10:30:00 AM Scheduled Provider:Walker hPillip MD Location:[facility] Appointment Type:BAD New Patient Appointment Date:11/08/2023 03:00:00 PM Scheduled Provider: Location:[facility] Appointment Type:CV Echo (FT) Appointment Date:11/10/2023 03:00:00 PM Scheduled Provider: [facility] [facility] Appointment Type:FM Nurse Visit Appointment Date:11/25/2023 02:40:00 PM Scheduled Provider:SRINIVAS Pereyra Tammy L. Location:[facility] Appointment Type: Open Appointment Date:12/06/2023 03:15:00 PM Scheduled Provider:Alirio Ramirez MD [facility] Appointment Type:Cardiology Follow Up (FT) Future Scheduled Tests Laboratory* B-Type Natriuretic Peptide 10/25/23 * Basic Metabolic Panel 10/25/23 Radiology* Echo Transthoracic Complete 11/08/23 [facility] [place] Evaluation + Plan note Future Appointments Appointment Date:11/08/2023 03:00:00 PM Scheduled Provider: [facility] [place] Appointment Type:CV Echo (FT) Appointment Date:11/10/2023 03:00:00 PM Scheduled Provider: Location:[facility] Appointment Type:FM Nurse Visit Appointment Date:11/25/2023 02:40:00 PM Scheduled Provider:SRINIVAS Pereyra Tammy L. Location:[facility] Appointment Type: Open Appointment Date:12/06/2023 03:15:00 PM Scheduled Provider:Alirio Ramirez MD [facility] Appointment Type:Cardiology Follow Up (FT) Appointment Date:12/23/2023 10:30:00 AM Scheduled Provider: Location:[facility] Appointment Type:Surgery FT Appointment Date:12/23/2023 12:00:00 PM Scheduled Provider: [facility] Appointment Type:Surgery FT Appointment Date:01/13/2024 10:45:00 AM Scheduled Provider:Walker Phillip MD Location:[facility] Appointment Type:[facility] Follow Up Future Scheduled Tests Laboratory* Hep B Core Ab, Tot 11/02/23 * Bwlkl-1-Lwijcpphmqg 11/02/23 * B-Type Natriuretic Peptide 10/25/23 * [...] PT 11/02/23 Radiology* Echo Transthoracic Complete 11/08/23 [facility] Evaluation + Plan note Future Appointments Appointment Date:11/10/2023 03:00:00 PM Scheduled [facility]: [facility] Nurse Visit Appointment Date:11/25/2023 02:40:00 PM Scheduled Provider:Yocasta MSN, HEATER OPERATOR HELPER-BUFFER OPERATOR, Myron Hamilton Location:[facility] Appointment Type:FM Open Appointment Date:12/06/2023 03:15:00 PM Scheduled Provider:Adam SAMPSON, Alirio Hooper [facility] [place] Appointment Type:Cardiology Follow Up (FT) Appointment Date:12/23/2023 10:30:00 AM Scheduled Provider: Location:[facility] Appointment Type:Surgery FT Appointment Date:12/23/2023 12:00:00 PM Scheduled Provider: Location:[facility] Appointment Type:Surgery FT Appointment Date:01/13/2024 10:45:00 AM Scheduled Provider:Walker Phillip MD Location:[facility] Future Scheduled Tests Laboratory* Hep B Core Ab, Tot 11/02/23 * Sboxr-4-Pzumkfewdlh 11/02/23 * B-Type Natriuretic Peptide 10/25/23 * [...] * Iron Level 11/02/23 * [facility] Appointment Date:12/06/2023 03:15:00 PM Scheduled Provider:Adam SAMPSON, Alirio Hooper [facility] [place] Appointment Type:Cardiology Follow Up (FT) Appointment Date:12/23/2023 10:30:00 AM Scheduled Provider: Location:[facility] Appointment Type:Surgery FT Appointment Date:12/23/2023 12:00:00 PM Scheduled Provider: Location:[facility] Appointment Type:Surgery FT Appointment Date:01/13/2024 10:45:00 AM Scheduled Provider:Walker Phillip MD Location:[facility] Appointment Type:BAD[facility] Follow Up Appointment Date:02/22/2024 01:20:00 PM Scheduled Provider:Yocasta MSN, HEATER OPERATOR HELPER-BUFFER OPERATOR, Myron Hamilton Location:[facility] Appointment Type: Open Future Scheduled Tests Laboratory* Hep B Core Ab, Tot 11/02/23 * Lzmbi-2-Fwyiesrnkvj 11/02/23 * B-Type Natriuretic Peptide 10/25/23 * [...] * Iron Level 11/02/23 * PT 11/02/23 [facility] [place] Evaluation + Plan note Future Appointments Appointment Date:12/23/2023 10:30:00 AM Scheduled Provider: Location:[facility] Appointment Type:Surgery FT Appointment Date:12/23/2023 12:00:00 PM Scheduled Provider: Location:[facility] Appointment Type:Surgery FT Appointment Date:01/13/2024 10:45:00 AM Scheduled Provider:Walker Phillip MD Location:[facility] Appointment Type:BADH Follow Up Appointment Date:02/22/2024 01:20:00 PM Scheduled Provider:Yocasta SMITH, Myron ESPINO Location:[facility] Appointment Type: Open Appointment Date:06/05/2024 01:00:00 PM Scheduled Provider:Alirio Ramirez MD [facility] [place] Appointment Type:Cardiology Follow Up (FT) Future Scheduled Tests Laboratory* Hep B Core Ab, Tot 11/02/23 * Xkamg-3-Qxfwvsocnmh 11/02/23 * B-Type Natriuretic Peptide 10/25/23 * [...] * Iron Level 11/02/23 * PT [facility]/02/23 [facility] Appointment Date:02/22/2024 01:20:00 PM Scheduled Provider:Yocasta MSITH, Myron ESPINO [facility] Open Appointment Date:06/05/2024 01:00:00 PM Scheduled Provider:Alirio Ramirez MD [facility] [place] Appointment Type:Cardiology Follow Up (FT) Future Scheduled Tests Laboratory* Hep B Core Ab, Tot 11/02/23 * Rcytq-1-Podqmktijbw 11/02/23 * B-Type Natriuretic Peptide 10/25/23 * [...] * Iron Level 11/02/23 * PT 11/02/23 [facility] Evaluation + Plan note Future Appointments Appointment Date:06/05/2024 01:00:00 PM Scheduled Provider:Adam SAMPSON, Alirio Hooper [facility] [place] Appointment Type:Cardiology Follow Up (FT) Appointment Date:08/29/2024 01:00:00 PM Scheduled Provider:Yocasta MSN, HEATER OPERATOR HELPER-BUFFER OPERATOR, Myron Hamilton Location:[facility] [place] Appointment Type: Open Appointment Date:08/31/2024 11:00:00 AM Scheduled Provider: Location:[facility] Appointment Type:Surgery FT Future Scheduled Tests Laboratory* Hep B Core Ab, Tot 11/02/23 * Igfvn-2-Iktpbbognxe 11/02/23 * B-Type Natriuretic Peptide 10/25/23 * [...] * Iron Level 11/02/23 * PT 11/02/23 [facility] [place] Evaluation + Plan note Future Appointments Appointment Date:08/29/2024 01:00:00 PM Scheduled Provider:SRINIVAS Pereyra Tammy L. Location:[facility] [place] Appointment Type:FM Open Appointment Date:08/31/2024 11:00:00 AM Scheduled Provider: Location:[facility] Appointment Type:Surgery FT Appointment Date:12/18/2024 11:00:00 AM Scheduled Provider:Rick Hernandez PA-C Location[facility] Appointment Type:Cardiology Follow Up (FT) Future Scheduled Tests Laboratory* Hep B Core Ab, Tot 11/02/23 * Wayud-1-Dctczsrwoid 11/02/23 * B-Type Natriuretic Peptide 10/25/23 * [...] * Iron Level 11/02/23 * PT 11/02/23 [facility] Evaluation + Plan note Future Appointments Appointment Date:07/13/2024 11:00:00 AM Scheduled Provider: Location:[facility] [place] Appointment Type:FM Nurse Visit Appointment Date:07/18/2024 12:00:00 PM Scheduled Provider:SRINIVAS Pereyra Tammy L. Location:[facility] [place] Appointment Type: Open Appointment Date:08/29/2024 01:00:00 PM Scheduled Provider:SRINIVAS Pereyra Tammy L. Location:[facility] [place] Appointment Type: Open Appointment Date:08/31/2024 11:00:00 AM Scheduled Provider: Location:[facility] Appointment Type:Surgery FT Appointment Date:12/18/2024 11:00:00 AM Scheduled Provider:Rick Hernandez PA-C Location:[facility] Appointment Type:Cardiology Follow Up (FT) Future Scheduled Tests Laboratory* Hep B Core Ab, Tot 11/02/23 * HgbA1c 07/11/24 * Fedcc-0-Zemvudimqcv 11/02/23 * B-Type Natriuretic Peptide 07/11/24 * [...] PT 11/02/23 * Vitamin B12 Level 07/11/24 [facility] [place] Evaluation + Plan note Future Appointments Appointment Date:07/18/2024 12:00:00 PM Scheduled Provider:Yocasta SMITH, Myron ESPINO Location:[facility] [place] Appointment Type: Open Appointment Date:08/29/2024 01:00:00 PM Scheduled Provider:SRINIVAS Pereyra Tammy L. Location:[facility] [place] Appointment Type: Open Appointment Date:08/31/2024 11:00:00 AM Scheduled Provider: Location:[facility] Appointment Type:Surgery FT Appointment Date:12/18/2024 11:00:00 AM Scheduled Provider:Rick Hernandez PA-C Location[facility] [place] Appointment Type:Cardiology Follow Up (FT) Future Scheduled Tests Laboratory* Hep B Core Ab, Tot 11/02/23 * Svicf-0-Hhmhnbocjoc 11/02/23 * B-Type Natriuretic Peptide 10/25/23 * [...] * Iron Level 11/02/23 * PT 11/02/23 [facility] [place] Evaluation + Plan note Future Appointments Appointment Date:07/18/2024 12:00:00 PM Scheduled Provider:Yocasta SMITH, DARLEEN-Myron VILLATORO Location:[facility] [place] Appointment Type: Open Appointment Date:08/29/2024 01:00:00 PM Scheduled Provider:Yocasta SMITH, Myron ESPINO [facility] Open Appointment Date:08/31/2024 11:00:00 AM Scheduled Provider: Location:[facility] Appointment Type:Surgery FT Appointment Date:12/18/2024 11:00:00 AM Scheduled Provider:Rick Hernandez PA-C Location[facility] [place] Appointment Type:Cardiology Follow Up (FT) Diagnostic Tests Pending * HgbA1c 07/13/24 Future Scheduled Tests Laboratory* Hep B Core Ab, Tot 11/02/23 * Cafei-1-Kifyguulqze 11/02/23 * B-Type Natriuretic Peptide 10/25/23 * [...] * Iron Level 11/02/23 * PT 11/02/23 [facility] Evaluation + Plan note Future Appointments Appointment Date:08/31/2024 11:00:00 AM Scheduled Provider: Location:[facility] Appointment Type:Surgery FT Appointment Date:09/12/2024 01:00:00 PM Scheduled Provider:Yocasta SMITH, Myron ESPINO Location:[facility] Appointment Type: Open Appointment Date:12/18/2024 11:00:00 AM Scheduled Provider:Rick Hernandez PA-C [facility] Appointment Type:Cardiology Follow Up (FT) Future Scheduled Tests Laboratory* Hep B Core Ab, Tot 11/02/23 * Rbygx-2-Xxzusozknza 11/02/23 * B-Type Natriuretic Peptide 10/25/23 * [...] * Iron Level 11/02/23 * PT 11/02/23 [facility] [place] Evaluation + Plan note Future Appointments Appointment Date:09/12/2024 01:00:00 PM Scheduled Provider:Yocasta SMITH, Myron ESPINO Location:[facility] Appointment Type:FM Open Appointment Date:12/18/2024 11:00:00 AM Scheduled Provider:Rick Hernandez PA-C [facility] Appointment Type:Cardiology Follow Up (FT) Future Scheduled Tests Laboratory* Hep B Core Ab, Tot 11/02/23 * Nuqun-0-Ivajfptwrmm 11/02/23 * B-Type Natriuretic Peptide 10/25/23 * [...] * Iron Level 11/02/23 * PT 11/02/23 [facility] Evaluation + Plan note Future Appointments Appointment Date:12/18/2024 11:00:00 AM Scheduled Provider:Rick Hernandez PA-C [facility] [place] Appointment Type:Cardiology Follow Up (FT) Appointment Date:12/19/2024 12:40:00 PM Scheduled Provider:Yocasta MSN, HEATER OPERATOR HELPER-BUFFER OPERATOR, Myron Hamilton Location:[facility] [place] Appointment Type: Open [facility] Scheduled Tests Laboratory* Hep B Core Ab, Tot 11/02/23 * Xjglh-1-Zaqzmjxwjjf 11/02/23 * B-Type Natriuretic Peptide 10/25/23 * [...] * Iron Level 11/02/23 * PT 11/02/23 [facility] Evaluation + Plan note Future Appointments Appointment Date:12/19/2024 12:40:00 PM Scheduled Provider:SRINIVAS Pereyra Tammy L. Location:[facility] Appointment Type:FM Open Appointment Date:01/01/2025 02:00:00 PM Scheduled Provider:Rick Hernandez PA-C [facility] Appointment Type:Cardiology Follow Up (FT) [facility] evaluation + Plan note Future Appointments Appointment Date:01/01/2025 02:00:00 PM Scheduled Provider:Rick Hernandez PA-C [facility] Appointment Type:Cardiology Follow Up (FT) Appointment Date:01/02/2025 01:40:00 PM Scheduled Provider:SRINIVAS Pereyra Tammy L. Location:[facility] Appointment Type: Open Future Scheduled Tests Laboratory* Microalbumin Level Urine 12/19/24 * Urine Microalbumin/Creatinine Ratio 12/19/24 [facility] evaluation + Plan note Future Appointments Appointment Date:01/02/2025 01:40:00 PM Scheduled Provider:SRINIVAS Pereyra Tammy L. Location:[facility] Appointment Type:FM Open Appointment Date:01/07/2025 12:30:00 PM Scheduled Provider: [facility] Type:PUL Pulmonary Function Test (FT) Future Scheduled Tests Laboratory* Microalbumin Level Urine 12/19/24 * Urine Microalbumin/Creatinine Ratio 12/19/24 * Basic Metabolic Panel 01/02/25 [facility] evaluation + Plan note Future Appointments Appointment Date:01/07/2025 12:30:00 PM Scheduled Provider: Location:FT.[facility] Appointment Type:PUL Pulmonary Function Test (FT) Appointment Date:01/29/2025 08:30:00 AM Scheduled Provider:Rick Hernandez PA-C [facility] Appointment Type:Cardiology Follow Up (FT) Appointment Date:02/04/2025 01:40:00 PM Scheduled Provider:SRINIVAS Pereyra Tammy L. Location:[facility] Appointment Type: Open Future Scheduled Tests Laboratory* Basic Metabolic Panel 01/02/25 [facility] evaluation + Plan note Future Appointments Appointment Date:01/29/2025 08:30:00 AM Scheduled Provider:Rick Hernandez PA-C [facility] Appointment Type:Cardiology Follow Up (FT) Appointment Date:02/04/2025 01:40:00 PM Scheduled Provider:SRINIVAS Pereyra Tammy L. Location:[facility] Appointment Type: Open Future Scheduled Tests Laboratory* Basic Metabolic Panel 01/02/25 [facility] evaluation + Plan note Future Appointments Appointment Date:03/05/2025 01:00:00 PM Scheduled Provider:SRINIVAS Pereyra Tammy L. Location:[facility] Appointment Type: Open Appointment Date:03/12/2025 01:15:00 PM Scheduled Provider:Rick Hernandez PA-C [facility] Appointment Type:Cardiology Follow Up (FT) Future Scheduled Tests Laboratory* Basic Metabolic Panel 01/02/25 [facility] evaluation + Plan note Future Appointments Appointment Date:03/12/2025 01:15:00 PM Scheduled Provider:Rick Hernandez PA-C [facility] Appointment Type:Cardiology Follow Up (FT) Future Scheduled Tests Laboratory* Basic Metabolic Panel 01/02/25 [facility] Evaluation + Plan note Future Appointments Appointment Date:05/21/2025 08:00:00 AM Scheduled Provider: [facility]oint[facility] Type:CV Echo Stress (FT) Appointment Date:06/04/2025 09:00:00 AM Scheduled Provider:Rick Hernandez PA-C [facility] Appointment Type:Cardiology Follow Up (FT) Future Scheduled Tests Laboratory* Basic Metabolic Panel 01/02/25 Radiology* EC Stress Echo Complete w/ Contrast 05/21/25 [facility] Evaluation note* Diagnosis SOB (shortness of breath) Shortness of breath Obstructive sleep apnea syndrome Obstructive sleep apnea (adult) (pediatric) Moderate persistent asthma without complication Unspecified asthma Tobacco abuse Tobacco use disorder documented in this encounter [employer] Phone: evaloxxuzm note* Diagnosis SOB (shortness of breath) Shortness of breath Obstructive sleep apnea (adult) (pediatric) Moderate persistent asthma without complication Unspecified asthma documented in this encounter [employer] Phone: evaluation note* Diagnosis Hypertension, unspecified type Bilateral leg edema Edema documented in this encounter [employer] Phone: [email or web address] note* Diagnosis Onset Date Resolution Status Acute congestive heart failure acute Acute exacerbation of CHF (congestive heart failure) acute Acute respiratory failure with hypoxia acute Chest pain acute Shortness of breath [facility] Work Phone: Evaluation note* Diagnosis Onset Date Resolution Status Acute congestive heart failure acute Acute exacerbation of CHF (congestive heart failure) acute Acute respiratory failure with hypoxia acute Chest pain acute COPD with acute exacerbation acute Shortness of breath acute [facility] Work Phone: Evaluation note* Diagnosis Alcohol abuse- Primary Alcohol abuse, unspecified documented in this encounter [employer] Phone: evalsmwhxz note* Diagnosis Left hand weakness Muscle weakness (generalized) documented in this encounter [employer] Phone: evalexemch note* Diagnosis Weakness of both legs Other musculoskeletal symptoms referable to limbs documented in this encounter [employer] Phone: evalftzulz note* Diagnosis Fatigue, unspecified type Screening, lipid Screening for lipoid disorders documented in this encounter [employer] Phone: [email or web address] note* Diagnosis Right hip pain Pain in joint, pelvic region and thigh documented in this encounter [employer] note* Diagnosis Gastroesophageal reflux disease, unspecified whether esophagitis present- Primary Morbid obesity with BMI of 50.0-59.9, adult BRENDA (obstructive sleep apnea) Obstructive sleep apnea (adult) (pediatric) Type 2 diabetes mellitus without complication, without long-term current use of insulin [facility] Diagnosis Onset Date Resolution Status Admit Date Lumbar radiculopathy acute Octo 2024 9:52am [facility] Work Phone: Hospital course Narrative No data available for this section [facility] Hospital Discharge instructions No data available for this section [facility] Additional Instructions Continue use of CPAP as before.[facility] Work Phone: Hospital Discharge instructions* Attachments The following attachments cannot be sent through Care Everywhere. * Alcohol Intoxication: Acute ([place]) [facility]: progress note No data available for this section [facility] Rezxkv for referral (narrative) Referred by: Parish PATE [facility] Relhue for referral (narrative) Referred by: Lupis SCHWARTZ MD, FAAFP Referred by: Lupis SCHWARTZ MD, FAAFP [facility] Refgti for referral (narrative) , colonscopy, hx of polyps Referred by: Yocasta SMITH, HEATER OPERATOR HELPER-BUFFER OPERATORMyron [facility] Rekstg for referral (narrative) , X-ray tonight, failed PT Referred by: Yocasta SMITH, HEATER OPERATOR HELPER-BUFFER OPERATORMyron [facility] Reulrl for referral (narrative)No reason for referral information available[facility] Work Phone: Assessments Diagnosis Syncope and collapse Pre-operative clearance [...] Documents on File Type Date Recorded Patient 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 Drafting Officer Expl anation Advance Directives and Living Will Power of Learning Program Manager Latest Code Status on File Code Status Date Activated Date Inactivated Comments Full Code 06/18/2018 1:23 PM 06/19/2018 8:22 PM Full Code 04/26/2018 5:22 PM 04/27/2018 1:14 PM Full Code 04/26/2018 11:04 AM 04/26/2018 5:16 PM Full Code 03/15/2018 1:38 PM 03/16/2018 3:51 PM Full Code 03/15/2018 8:18 AM 03/15/2018 1:38 PM Documents on File Type Date Recorded Patient 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 Drafting Officer Expl anation Advance Directives and Living Will Power of Learning Program Manager Latest Code Status on File Code Status Date Activated Date Inactivated Comments Full Code 06/18/2018 1:23 PM 06/19/2018 8:22 PM Full Code 04/26/2018 5:22 PM 04/27/2018 1:14 PM Full Code 04/26/2018 11:04 AM 04/26/2018 5:16 PM Full Code 03/15/2018 1:38 PM 03/16/2018 3:51 PM Full Code 03/15/2018 8:18 AM 03/15/2018 1:38 PM Documents on File Type Date Recorded Patient 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 Drafting Officer Expl anation ACP-Advance Directive ACP-Power of Learning Program Manager Latest Code Status on File Code Status Date Activated Date Inactivated Comments Full Code 03/17/2020 11:39 AM Full Code 03/17/2020 8:35 AM 03/17/2020 11:39 AM Full Code 06/18/2018 1:23 PM 06/19/2018 8:22 PM Documents on File Type Date Recorded Patient 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 Drafting Officer Expl anation ACP-Advance Directive ACP-Power of Learning Program Manager Latest Code Status on File Code Status [...] Procedures EKG 12 Lead Joselito Hsu MD [address] [place] [address] Status Reason Specialty Diagnoses / Procedures Referred By Contact Referred To Contact Not Required - [place] Pulmonary Function Testing Diagnoses SOB (shortness of breath) Procedures Full PFT Study With Bronchodilator HC BEFORE / AFTER BRONCHODILATOR Joselito Hsu MD [address] [place] [address] [address] [place] [address] Status Reason Specialty Diagnoses / Procedures Referred By Contact Referred To Contact Pending Review Radiology Diagnoses Hypertrophy of uterus Right lower quadrant pain Procedures US NON OB TRANSVAGINAL Mulu Dean APRN - [place] [address] [place] [address] Status Reason Specialty Diagnoses / Procedures Referre d By Contact Referred To Contact Open Radiology Diagnoses Hypertrophy of uterus Right lower quadrant pain Procedures US PELVIS COMPLETE Mulu Dean APRN - CNP [facility] [place] [address] Status Reason Specialty Diagnoses / Procedures Referre d By Contact Referred To Contact Open Radiology Diagnoses RLQ abdominal pain Procedures CT ABDOMEN PELVIS W IV CONTRAST Additional Contrast? Oral Mulu Dean APRN - [address] [address] Specialty Diagnoses / Procedures Referred By Joan dawson Referred To Contact Diagnoses SOB (shortness of breath) Obstructive sleep apnea syndrome Moderate persistent asthma without complication Tobacco abuse Procedures Full PFT Study With Bronchodilator Mulu Dean [place]N - [place] [address] [place] [address] Referral ID Status Reason Start Date Expiration Date V isits Requested Visits Authorized [id number] Pending Review 05/15/2021 05/14/2022 1 1 Specialty Diagnoses / Procedures Referred By Joan dawson Referred To Contact Cardiology Diagnoses Hypertension, unspecified type Bilateral leg edema I10 (ICD-10-CM) - Hypertension, unspecified type Procedures Echocardiogram complete DE ECHO TTHRC R-T 2D W/WOM-MODE COMPL SPEC&COLR D [id number] - DE ECHO TTHRC R-T 2D W/WOM-MODE COMPL SPEC&COLR D Lupis Schwartz MD [address] [place] [address] Dr. Yarbrough, [place] 0 Referral ID Status Reason Start Date Expiration Date Visits Re quested Visits Authorized [id number] Closed 08/25/2022 08/20/2023 1 1 Discharge Instructions [...] one drug, even if it is an tbvv-owe-judcxyx medication, herb, or dietary supplement, be sure [...] COPD with acute exacerbation Shortness of breath Chief Complaint Admit Date Spinal Stenosis - Lumbar Region April 03, 2025 9:52am Reason for Visit Admit Date Lumbar radiculopathy April 03, 2025 9 :52am Summary Purpose Family History No Family History Records Found Additional Source Comments Reason for Visit (unrecogniz ed section and content) Status Reason Specialty Diagnoses / Procedures Referred By Contact Referred To Contact Not Required - [facility] Pulmonary Function Testing Diagnoses SOB (shortness of breath) Procedures Full PFT Study With Bronchodilator HC BEFORE / AFTER BRONCHODILATOR Joselito Hsu MD [address] [place] [address] [facility] [address] [place] [address] Status Reason Specialty Diagnoses / Procedures Referred By Contact Referred To Contact Pending Review Radiology Diagnoses Hypertrophy of uterus Right lower quadrant pain Procedures HC US PELVIS COMPLETE Mulu Dean APRN - BUFFER OPERATOR [address] [place] [address] [facility] [address] [place] [address] Status Reason Specialty Diagnoses / Procedures Re ferred By Contact Referred To Contact Diagnoses Right lower quadrant abdominal pain Weight gain RIGHT LOWER ABDOMINAL PAIN, WEIGHT GAIN Procedures DE COLONOSCOPY FLX DX W/COLLJ SPEC WHEN PFRMD DE ESOPHAGOGASTRODUODENOSCOPY TRANSORAL DIAGNOSTIC COLONOSCOPY EGD ESOPHAGOGASTRODUODENOSCOPY Glenn Malik MD [address] [facility] [address] [place] [address] [facility] Status Reason Specialty Diagnoses / Procedures Referre d By Contact Referred To Contact Closed Radiology Diagnoses Right lower quadrant pain Procedures CT ABDOMEN PELVIS W CONTRAST Mulu Dean APRN - BUFFER OPERATOR [address] [place] [address] [place] [address] Specialty Diagnoses / Procedures Referred By Contmick t Referred To Contact Diagnoses SOB (shortness of breath) Obstructive sleep apnea syndrome Moderate persistent asthma without complication Tobacco abuse Procedures Full PFT Study With Bronchodilator Mulu Dean APRN - CNP [address] [place] [address] Referral ID Status Reason Start Date Expiration Date V isits Requested Visits Authorized [id number] Pending Review 05/15/2021 05/14/2022 1 1 Reason Comments Education Class Specialty Diagnoses / Procedures Referred By Contac t Referred To Contact Cardiology Diagnoses Hypertension, unspecified type Bilateral leg edema I10 (ICD-10-CM) - Hypertension, unspecified type Procedures Echocardiogram complete DE ECHO TTHRC R-T 2D W/WOM-MODE COMPL SPEC&COLR D 66788 - DE ECHO TTHRC R-T 2D W/WOM-MODE COMPL SPEC&COLR D Lupis Schwartz MD [address] [place] [address] Referral ID Status Reason Start Date Expiration Date Visits Re quested Visits Authorized [id number] Closed 08/25/2022 08/20/2023 1 1 Reason Comments Chest Pain Chest pain, SOB x1 d ay patient states this started after had 2 bottles of rum today Specialty Diagnoses / Procedures [facility] Referred To Contact Radiology Diagnoses Fatigue, unspecified type Screening, lipid Procedures VL DUP LOWER EXTREMITY VENOUS BILATERAL US DUP LOWER EXTREMITIES BILATERAL VENOUS Carmne Haley, DO [address] [place] [address] Referral ID Status Reason Start Date Expiration Date Visits Re quested Visits Authorized [id number] Open 11/17/2022 11/17/2023 1 1 Reason Comments New Patient Carmen is interested in bariatric surgery for weight loss and improvement of comorbid conditions. Specialty Diagnoses / Procedures [facility] Referred To Contact Multispecialty Diagnoses Morbid obesity with BMI of 50.0-59.9, adult BRENDA (obstructive sleep apnea) Type 2 diabetes mellitus with morbid obesity Benign hypertension [facility] Other [address] [place] [address] Phone: tel: Coco Dean MD [address] [place] [address] Phone: tel: Referral ID Status Reason Start Date Expiration Date V isits Requested Visits Authorized [id number] Pending Review 09/28/2024 10/23/2025 1 1 Care Teams (unrecognized sec tion and content) Personnel Name: Yocasta SMITH, HEATER OPERATOR HELPER-BUFFER OPERATOR, Myron Hamilton Address: [address] [place] [address]- Telecom: Rig Operator Relationship Specialty Start Date End Date Donnamiller, Muul, HEATER OPERATOR HELPER - BUFFER OPERATOR [address] [place] [address] PCP - General Family Medicine 02/17/17 Rig Operator Relationship Specialty Start Date End Date Mulu Dean HEATER OPERATOR HELPER - BUFFER OPERATOR [address] [place] [address] PCP - General Family Medicine 02/17/17 Rig Operator Relationship Specialty Start Date End Date Mulu Dean HEATER OPERATOR HELPER - BUFFER OPERATOR [address] [place] [address] PCP - General Family Medicine 02/17/17 Rig Operator Relationship Specialty Start Date End Date Mulu Dean HEATER OPERATOR HELPER - BUFFER OPERATOR [address] [place] [address] PCP - General Family Medicine 02/17/17 Rig Operator Relationship Specialty Start Date End Date Mulu Dean HEATER OPERATOR HELPER - BUFFER OPERATOR [address] [place] [address] PCP - General Family Medicine 02/17/17 Rig Operator Relationship Specialty Start Date End Date Mulu Dean HEATER OPERATOR HELPER - BUFFER OPERATOR [address] [place] [address] PCP - General Family Medicine 02/17/17 Rig Operator Relationship Specialty Start Date End Date Mulu Dean, HEATER OPERATOR HELPER - BUFFER OPERATOR [address] [place] [address] PCP - General Family Medicine 02/17/17 Team [...] Lupis Schwartz MD Primary Care Provider Active Rig Operator Relationship Specialty Start Date End Date Mulu Dean, HEATER OPERATOR HELPER - BUFFER OPERATOR [address] [place] [address] PCP - General Family Medicine 02/17/17 Rig Operator Relationship Specialty Start Date End Date Mulu Dean, HEATER OPERATOR HELPER - BUFFER OPERATOR [address] [place] [address] PCP - General Family Medicine 02/17/17 Rig Operator Relationship Specialty Start Date End Date Mulu Dean, HEATER OPERATOR HELPER - BUFFER OPERATOR [address] [place] [address] PCP - General Family Medicine 02/17/17 Rig Operator Relationship Specialty Start Date End Date Mulu Dean, HEATER OPERATOR HELPER - BUFFER OPERATOR PCP - General Family Medicine 02/17/17 Rig Operator Relationship Specialty Start Date End Date Myron Rust HEATER OPERATOR HELPER - BUFFER OPERATOR [address] [place] [address] PCP - General Nurse Practitioner Family 04/29/23 Rig Operator Relationship Specialty Start Date End Date Myron Rust, HEATER OPERATOR HELPER - BUFFER OPERATOR [address] [place] [address] PCP - General Nurse Practitioner Family 04/29/23 Rig Operator Relationship Specialty Start Date End Date Myron Rust HEATER OPERATOR HELPER - BUFFER OPERATOR [address] [place] [address] [address] PCP - General Nurse Practitioner Family 04/29/23 Rig Operator Relationship Specialty Start Date End Date Myron Rust CNP [address] [phone] PCP - General Nurse Practitioner - Family 11/07/24 Team Status: Active Member Role Status Dates COLUMBA Webb Primary Care Provider Active Team Status: Inactive Member Role Status Dates Glenn Perkins DO Attending Provider Active S tart: April 03, 2025 End: April 03, 2025 COLUMBA Webb Primary Care Provider Active Start: April 03, 2025 End: April 03, 2025 Goals (unrecognized section and content) Goals may be documented in a n alternate section INFORMATION SOURCE (unrecogn ized section and content) DATE CREATED AUTHOR 09/18/2022 [facility] DATE CREATED AUTHOR AUTHOR'S ORGANIZ ATION 02/10/2023 [facility] DATE CREATED AUTHOR AUTHOR'S ORGANIZ ATION 09/01/2023 [facility] DATE CREATED AUTHOR AUTHOR'S ORGANIZ ATION 12/23/2023 [facility] [place] [facility] DATE CREATED AUTHOR AUTHOR'S ORGANIZ ATION 07/18/2024 [facility] DATE CREATED AUTHOR AUTHOR'S ORGANIZ ATION 09/06/2024 [facility] DATE CREATED AUTHOR AUTHOR'S ORGANIZ ATION 09/15/2024 [facility] DATE CREATED AUTHOR AUTHOR'S ORGANIZ ATION 12/21/2024 [facility] DATE CREATED AUTHOR AUTHOR'S ORGANIZ ATION 12/23/2024 [facility] DATE CREATED AUTHOR AUTHOR'S ORGANIZ ATION 12/27/2024 [facility] DATE CREATED AUTHOR AUTHOR'S ORGANIZ ATION 12/28/2024 [facility] DATE CREATED AUTHOR AUTHOR'S ORGANIZ ATION 12/29/2024 [facility] DATE CREATED AUTHOR AUTHOR'S ORGANIZ ATION 12/30/2024 [facility] DATE CREATED AUTHOR AUTHOR'S ORGANIZ ATION 01/03/2025 [facility] DATE CREATED AUTHOR AUTHOR'S ORGANIZ ATION 01/04/2025 [facility] DATE CREATED AUTHOR AUTHOR'S ORGANIZ ATION 01/06/2025 [facility] DATE CREATED AUTHOR AUTHOR'S ORGANIZ ATION 01/13/2025 [facility] DATE CREATED AUTHOR AUTHOR'S ORGANIZ ATION 01/25/2025 [facility] DATE CREATED AUTHOR AUTHOR'S ORGANIZ ATION 01/31/2025 [facility] DATE CREATED AUTHOR AUTHOR'S ORGANIZ ATION 02/06/2025 [facility] DATE CREATED AUTHOR AUTHOR'S ORGANIZ ATION 02/21/2025 [facility] DATE CREATED AUTHOR AUTHOR'S ORGANIZ ATION 04/10/2025 [facility] Scheduled Active and Recently Administ ered [...] BE BASED ON THE PRIMARY CLINICAL RECORDS. [employer] [facility]. provides no warranty or guarantee of the accuracy or completeness of information in this document.
--- NOTE | 2025-04-11 15:39 | PM.CN ---
Consult Note: HPI Data of Consult Patient: known to practice within the last 3 years Consult date: 04/11/25 Requesting Physician: Eda Christianson NP Primary Care Provider: Non-Staff Physician, Consult Narrative Reason for consult: f/u Narrative: Carmen Casiano a 64 year old female presents for evaluation and management of chronic low back pain. hx of lumbar stenosis, lumbar ddd, and lumbar spondylosis per prior lumbar MRI and xray. pt has failed to benefit from > 6 weeks of PT and provider guided HEP, heat, ice, tylenol, and ibuprofen. pain today 8/10 in low back and BLE with standing, walking, activity. notes worsening numbness to bilateral feet since last visit. utilizing flexeril 10mg tid prn, meloxicam 7.5mg bid prn, and gabapentin 800mg TID without side effects, no significant improvement. pt interested in further working up for scs trial/implant however needs to lose weight first. pt interested in repeating bilateral L5-S1 TFESI as she noted significant relief from prior TFESI in october cc:: CC: Eda Christianson NP Review of Systems ROS Musculoskeletal Reports: back pain and extremity pain PFSH PFSH Medical History Rheumatoid arthritis ?M06.9 - Rheumatoid arthritis, unspecified (ICD-10) Diabetes ?E11.9 - Type 2 diabetes mellitus without complications (ICD-10) Sleep apnea ?G47.30 - Sleep apnea, unspecified (ICD-10) Asthma ?J45.909 - Unspecified asthma, uncomplicated (ICD-10) CHF (congestive heart failure) ?I50.9 - Heart failure, unspecified (ICD-10) Surgical History History of cataract extraction ?Z98.49 - Cataract extraction status, unspecified eye (ICD-10) History of foot surgery ?Z98.890 - Other specified postprocedural states (ICD-10) History of knee replacement ?Z96.659 - Presence of unspecified artificial knee joint (ICD-10) Meds Home Medications and Allergies Home Medications ?Medication ?Instructions ?Recorded ?Confirmed ?Type aripiprazole 2 mg tablet (Abilify) 2 mg PO DAILY 05/18/23 02/11/25 History cholecalciferol (vitamin D3) 50 50 mcg PO DAILY 05/18/23 02/11/25 History mcg (2,000 unit) capsule (Vitamin D3) empagliflozin 10 mg tablet 10 mg PO DAILY 05/18/23 02/11/25 History (Jardiance) fluoxetine 20 mg capsule 40 mg PO DAILY 05/18/23 02/11/25 History furosemide 40 mg tablet 40 mg PO DAILY 05/18/23 02/11/25 History glipizide 2.5 mg tablet 2.5 mg PO DAILY 05/18/23 02/11/25 History pantoprazole 40 mg tablet,delayed 40 mg PO DAILY 05/18/23 02/11/25 History release potassium chloride 20 mEq 20 meq PO DAILY 05/18/23 02/11/25 History tablet,extended release(part/cryst) (Klor-Con M) rosuvastatin 40 mg tablet 40 mg PO DAILY 05/18/23 02/11/25 History sacubitril 24 mg-valsartan 26 mg 1 tab PO BID 05/18/23 02/11/25 History tablet (Entresto) spironolactone 25 mg tablet 25 mg PO DAILY 05/18/23 02/11/25 History dulaglutide 1.5 mg/0.5 mL 1.5 mg subcut QWEEK 01/26/24 02/11/25 History subcutaneous pen injector (Trulicity) cyclobenzaprine 10 mg tablet 10 mg PO TID PRN muscle spasm #90 05/10/24 02/11/25 Rx tabs meloxicam 7.5 mg tablet 7.5 mg PO BID 10/17/24 02/11/25 History gabapentin 300 mg capsule 300 mg PO TID #90 caps 10/25/24 02/11/25 Rx gabapentin 800 mg tablet 800 mg PO TID #90 tabs 02/20/25 Rx Allergies Allergy/AdvReac Type Severity Reaction Status Date / Time No Known Drug Allergies Allergy Verified 02/11/25 11:50 Exam Constitutional Documenting provider has reviewed patient's vital signs: yes Common normals: no apparent distress, oriented x3, healthy appearing, alert and well nourished General appearance: cooperative HENMD Common normals: normocephalic, hearing grossly normal bilaterally and moist oral mucous membranes Head and scalp: normocephalic Eye Common normals: PERRL Pupil: PERRL Neck & C-Spine Common normals: full ROM General: normal visual inspection Chest Common normals: inspection of chest normal Respiratory Common normals: normal respiratory effort, no retractions and no use of accessory muscles Back & Pelvis Lumbar spine/lower back: ROM limited, pain with ROM, lumbar spinal tenderness, straight leg raise positive right and straight leg raise positive left Sacroiliac joints: SI joint(s) abnormal Other: decreased sensation bilateral L4,5,S1 strength 4/5 in BLE left > right sij positive aliyah(patricks), gaenslens, thigh thrust, compression test Neuro Common normals: oriented x3 Sensorium/orientation: alert Psych Common normals: mental status grossly normal, thought process normal, cooperative, affect normal, speech normal and activity/motor behavior normal Speech: normal speech Thought process: normal thought process Results Additional Findings Additional findings: If on a controlled substance or opioids, I have checked an [place] report on this patient and there are no aberrancies noted in the prescribing history.??If on a controlled substance or opioid a drug screen was completed and reviewed within the last year, and if there has not been a drug screen completed we ordered one today to monitor higher risk, state monitored pain medication use. As part of providing excellent, safe, comprehensive care, the following was completed at our patient's visit: 1. A medication reconciliation and review to ensure accurate knowledge of current/active medications, including asking our patients to inform us about any expo-gms-eyebsca medications or herbal remedies/nutritional supplements/alternative remedies. 2. A review to specifically ensure our patients have had annual screening for screening for depression, screening for tobacco use, and screening for unhealthy alcohol use. For concerning screenings had a discussion with the patient, provided patient education, and recommended follow-up with primary care provider when appropriate. If patient noted with a risk of falling, they received education on strength, gait, and balance training to prevent future risk of falling. Portions of this note may have been carried over from the previous visit and updated as appropriate. Please note this office utilizes paper charting in addition to the electronic medical record. A list of current medications, vitals, and PMH is available there as the clinical staff outside of myself do not have access to [employer] charting during the clinic day operations. As part of providing quality comprehensive care the current medications, vitals, and PMH were reviewed in the paper chart. Assessment and Plan Assessment and Plan (1) Lumbar stenosis with neurogenic claudication: Assessment and Plan: The patient has had over 3 months of moderate to severe low back, BLE, and bilateral SIJ pain with functional impairment and inadequate response to conservative care including NSAIDS (unless there are contraindication such as concurrent blood thinners), multiple oral or topical pain medications, and home exercise program/physical therapy.? Patient has completed >6 weeks of guided home exercise program and/or formal physical therapy program without relief of their symptoms.? The Oswestry Disability Index was completed, and the patient scored a 62%.? The patient noted the following:?? moderate to severe pain impacting ADLs, sitting, standing, walking, sleeping, social life, travel (2) Lumbar spondylosis: (3) Lumbar degenerative disc disease: (4) Sacroiliitis: (5) Lumbar radiculopathy: Plan BMI >50 at this time, continue weight loss efforts. cannot undergo scs trial with BMI >50 repeat bilateral L5-S1 TFESI under fluoroscopy for lumbar stenosis with NC, per pt noted >50% improvement for at least 3 months in NC symptoms continue HEP as tolerated continue flexeril 10mg tid prn pain spasms continue mobic 7.5mg bid prn pain continue gabapentin 800mg TID f/u 2 weeks after RONEL
== END 2025-04-11 14:58 | disposition home or self-care (01) ==
LOC: PM 14:58
PROVIDERS: Visit Provider Nurse Practitioner
DX: M48.062 Spinal stenosis, lumbar region with neurogenic claudication (principal); M47.816 Spondylosis without myelopathy or radiculopathy, lumbar region; M51.369 Other intervertebral disc degeneration, lumbar region without mention of lumbar back pain or lower extremity pain; M46.1 Sacroiliitis, not elsewhere classified; M54.16 Radiculopathy, lumbar region
CPT/HCPCS: G0463

== ENCOUNTER 2025-04-22 10:43 | Day surgery (SDC) | payer OTHER, SELFPAY ==
--- OUTSIDE RECORDS SUMMARY | 2025-04-22 10:50 | XMS_ITS | CCD ---
Author Organization [facility] Inform ion [facility] Care Team Providers Care Placement Specialist Name Role Phone Mulu Dean Primary Care Provider Mulu DEAN Primary Care Physician [phone] Myron Rust Primary Care Physician Jermaine MOREJON - CHART COLLECTOR, Mulu Primary Care Pro vider NON STAFF Primary Care Provider Unavailabl e DO Joo Ramos Emergency Provider [phone] MD Marilyn Sun Admit Provider [phone] MD Marilyn Sun Attending Provider DO oJo Ramos Emergency Provider MD Marilyn Sun Admit Provider MD José Sanchez Attending Provider MD Lupis Schwartz Primary Care Provider Marilyn Sun Admitting Unavailable José Sanchez Attending Unavailable Lupis Schwartz Primary Care Unavailable Lupis SCHWARTZ Primary Care Physician Jermaine WARDROBE CUSTODIAN - CHART COLLECTOR, Mulu Primary Care Pro vider Yocasta MOREJON - Myron VILLATORO Primary Care Provider MYRON RUST Referring Unavailable MYRON RUST Primary Care Unavailable Myron Rust Primary Care Physician KAMALJIT MENENDEZ Attending Unavailable KAMALJIT MENENDEZ Referring Unavailable YOCASTA, MYRON Primary Care Unavailable ALIRIO RAMIREZ Referring Unavailab le YOCASTA, MYRON Primary Care Unavailable MEGHAN, MIHIR Referring Unavailable YOCASTA, MYRON Primary Care Unavailable MENENDEZKAMALJIT Referring Unavailable YOCASAT, MYRON Primary Care Unavailable YOCASTA, MYRON Referring Unavailable YOCASTA, MYRON Primary Care Unavailable YOCASTA, MYRON Referring Unavailable YOCASTA, MYRON Primary Care Unavailable YOCASTA, MYRON Referring Unavailable YOCASTA, MYRON Primary Care Unavailable MEGHAN, MIHIR Referring Unavailable YOCASTA, MYRON Primary Care Unavailable MEGHAN, MIHIR Referring Unavailable YOCASTA, MYRON Primary Care Unavailable YOCASTA, MYRON Primary Care Unavailable LYNSEY, VESELIN Attending Unavailable LYNSEY, VESELIN Attending Unavailable YOCASTA, MRYON Primary Care Unavailable MEGHAN, MIHIR Referring Unavailable YOCASTA, MYRON Primary Care Unavailable Yocasta, MSN, WARDROBE CUSTODIAN-CHART COLLECTOR Myron Hamilton Attending U jesika Rust, MSN, WARDROBE CUSTODIAN-CHART COLLECTOR Myron Hamilton Admitting U jesika CARBAJAL, XXXX [...] Walker Phillip Attending Unavaila caroline Rust, MSN, WARDROBE CUSTODIAN-IRVING Hamilton Attending U jesika Rust, MSN, WARDROBE CUSTODIAN-IRVING Hamilton Attending U jesika Rust, MSN, WARDROBE CUSTODIAN-CHART COLLECTOR Myron Hamilton Attending U jesika Rust, MSN, WARDROBE CUSTODIAN-IRVING Hamilton Attending U jesika Rust, MSN, WARDROBE CUSTODIAN-CHART COLLECTOR Myron Hamilton Attending U Alirio Ennis Attending Unavaila ble NONE, XXXX Referring Unavailable YocastaMyron pugh CNP Primary Care Provider Yocasta, Myron L. Attending Unavailable Yocasta, Myron L. Attending Unavailable Yocasta, Myron L. Attending Unavailable Yocasta, Myron L. Admitting Unavailable Yocasta, MSN, WARDROBE CUSTODIAN-CHART COLLECTOR Myron L. Admitting U navailable Yocasta, MSN, WARDROBE CUSTODIAN-CHART COLLECTOR Myron Machado. Attending U navailable Whit Simms [...] Yocasta, Myron L. Attending Unavailable Yocasta, MSN, WARDROBE CUSTODIAN-CHART COLLECTOR Myron L. Admitting U navailable Yocasta, MSN, WARDROBE CUSTODIAN-CHART COLLECTOR Myron L. Attending U navailable Yocasta, Myron [...] Attending Provider Myron Bruce Primary Care Provider [phone] NONE, XXXX Referring Unavailable Rick Hernandez Attending Unavailable NONE, XXXX Referring Unavailable Rick Hernandez Attending Unavailable Oneal Newman Attending Unavailable Myron Rust Attending Unavailable Myron Rust Attending Unavailable Allergies Allergy Classification Reported Allergen(s) Allergy Type Date of Onset Reaction(s) Facility amLODIPine (1 source) amLODIPine; Translations: [amlodipine] Drug Allergy Leg Edema [facility] Angiotensin Converting Enzyme (DESMOND) Inhibitors (1 source) Lisinopril; Translations: [lisinopril] Drug Allergy Persistent cough (finding), Tongue swelling (finding) [facility] metFORMIN (1 source) metFORMIN; Translations: [metformin] Drug Allergy Diarrhea (finding) [facility] (20 sources) amLODIPine; Translations: [amlodipine] Drug Allergy 5 Leg Edema [facility] (20 sources) Lisinopril; Translations: [lisinopril] Drug Allergy Persistent cough (finding), Tongue swelling (finding) [facility] (20 sources) metFORMIN; Translations: [metformin] Drug Allergy 5 Diarrhea (finding), Diarrhea [facility] (13 sources) No Known Medication Allergies; Translations: [No Known Medication Allergies] Propensity to adverse reactions (disorder) [facility] Repository Medications Current Medications Medication Drug Class(es) Dates Sig (Normalized) Sig (Original) 0.25 MG, 0.5 MG Dose 3 ML semaglutide 0.68 MG/ML Pen Injector [Ozempic] (4 sources) Start: 07-18-2024 inject 0.5 mg by subcutaneous injection every week Ozempic 2 mg/3 mL (0.25 mg or 0.5 mg dose) subcutaneous solution 0.5 mg, SubCutaneous, qWeek, # 2 EA, Refills(s) 0, Pharmacy: [facility] #[id number], 168, cm, 07/18/24 11:59:00 EST, Height/Length Dosing, 148.4, kg, 07/18/24 11:59:00 EST, Weight Dosing Start Date: 07/18/24 Status: Ordered Advair HFA 115 mcg-21 mcg/inh inhalation aerosol with adapter (3 sources) Start: 01-29-2025 take 2 puff(s) by inhalation twice daily Advair HFA 115 mcg-21 mcg/inh inhalation aerosol with adapter 2 puff(s), Inhalation, BID, 8 gm, Refill(s) 1, [facility], 168, cm, 01/29/25 8:19:00 EDT, Height/Length [...] breath or wheezing, 100 EA, Refill(s) 1, [facility], 168, cm, 04/09/25 11:43:00 EDT, Height/Length [...] breath or wheezing, 100 EA, Refill(s) 1, [facility] #[id number], 168, cm, 10/11/23 14:32:00 EDT, Height/Length Dosing, [...] breath or wheezing, 6.7 gm, Refill(s) 1, [facility], 168, cm, 04/09/25 11:43:00 EDT, Height/Length [...] breath or wheezing, 6.7 gm, Refill(s) 1, [facility], 168, cm, 12/27/24 10:40:00 EDT, [...] breath or wheezing, 6.7 gm, Refill(s) 3, [facility] #[id number], 168, cm, 11/27/24 14:20:00 EDT, Height/Length Dosing, 159.8, kg, 11/27/24 14:20:00 EDT, Weight Dosing Start Date: 11/27/24 Status: Ordered Quantity: 6.7 Unit: g Repeat number: 4 Alcohol wipes (20 sources) Start: 04-13-2022 Alcohol wipes Alcohol wipes, See Instructions, 100 EA, 3, Use to check BS daily dx E11.9, [facility] #[id number], Supply, 163, cm, 12/30/21 11:09:00 EDT, Height/Length Dosing, 154, kg, 12/30/21 11:09:00 EDT, Weight Dosing Start Date: 04/13/22 Status: Ordered Quantity: 100.0 Unit: EA Repeat number: 4 Start: 04-13-2022 Alcohol wipes Alcohol wipes, See Instructions, 100 EA, 3, Use to check BS daily dx E11.9, [facility] #[id number], Supply, 163, cm, 12/30/21 11:09:00 EDT, Height/Length Dosing, 154, kg, 12/30/21 11:09:00 EDT, Weight Dosing Start Date: 04/13/22 Status: Ordered Start: 06-03-2021 Alcohol wipes Alcohol wipes, See Instructions, 300 EA, 3, Use to check BS TID and PRN dx E11.9, [facility], Supply, 170, cm, 05/27/21 8:31:00 EST, Height/Length Dosing, 157.8, kg, 05/27/21 8:31:00 EST, Weight Dosing Start Date: 06/03/21 Status: Ordered amoxicillin 875 mg / clavulanate 125 mg oral tablet (1 source) Penicillin-class Antibacterial Start: 04-09-2025 End: 04-16-2025 Augmentin 875 mg-125 mg Tab 1 tab(s), Oral, q12hr for 7 day(s), 14 tab(s), Refill(s) 0, [facility], 168, cm, 04/09/25 11:43:00 EDT, Height/Length [...] Daily, # 90 tab(s), Refills(s) 4, Pharmacy: [facility] #[id number], 167, cm, 02/22/24 13:09:00 EDT, Height/Length Dosing, 137, kg, 02/22/24 13:09:00 EDT, Weight Dosing Start Date: 05/07/24 Status: Ordered Quantity: 90.0 Unit: tab(s) Repeat number: 5 Start: 12-30-2021 take 1 tablet by manish th once daily Abilify 2 mg Tab 2 mg = 1 tab(s), Oral, Daily, # 90 tab(s), Refills(s) 3, Pharmacy: [facility] #[id number], 167.6, cm, 12/23/23 10:59:00 EDT, Height/Length Dosing, [...] day(s), # 3 tab(s), Refills(s) 0, Pharmacy: [facility], 168, cm, 12/27/24 10:40:00 EDT, Height/Length [...] 1 EA, 0, Use at home daily, [facility]16, Supply, 170, cm, 10/02/19 13:41:00 EDT, Height/Length Measured, 156, kg, 10/02/19 13:41:00 EDT, Weight Measured Start Date: 10/02/19 Status: Ordered 24 hr buPROPion hydrochloride 150 mg extended release oral tablet (3 sources) Aminoketone Start: take 1 tablet by mouth every twenty-four hours buPROPion 150 mg/24 hours XL Tab 150 mg = 1 tab(s), Oral, q24hr, # 30 tab(s), Refills(s) 0, Pharmacy: [facility] #16, 168, cm, 02/04/25 13:39:00 EDT, Height/Length [...] food, # 60 cap(s), Refills(s) 0, Pharmacy: [facility] #[id number], 167, cm, 05/09/23 8:15:00 EST, Height/Length Dosing, 145.6, kg, 05/09/23 8:15:00 EST, Weight Dosing Start Date: 05/09/23 Status: Ordered cephalexin 500 mg oral capsule (4 sources) Cephalosporin Antibacterial Start: End: 025 take 1 capsule by mouth four times daily cephalexin 500 mg Cap 500 mg = 1 cap(s), Oral, QID, X 8 day(s), # 32 cap(s), Refills(s) 0, Pharmacy: [facility], 168, cm, 12/27/24 10:40:00 EDT, Height/Length [...] Pain, # 21 cap(s), Refills(s) 0, Pharmacy: [facility] #[id number], 168, cm, 07/11/24 11:16:00 EST, Height/Length Dosing, [...] week, # 2 mL, Refills(s) 3, Pharmacy: [facility]16, 168, cm, 03/12/25 13:02:00 EDT, Height/Length Dosing, 154.2, kg, 03/12/25 13:02:00 EDT, Weight Dosing Start Date: 04/01/25 Status: Ordered Quantity: 2.0 Unit: mL Repeat number: 1 Start: 02-25-2025 inject 3 mg by subcu taneous injection every week Trulicity Pen 3 mg/0.5 mL subcutaneous solution See Instructions, INJECT 3 (THREE) MG UNDER THE SKIN EVERY WEEK., # 2 mL, Refills(s) 0, Pharmacy: [facility] #16, 168, cm, 02/04/25 13:39:00 EDT, Height/Length Dosing, 155.1, kg, 02/04/25 13:39:00 EDT, Weight Dosing Start Date: 02/25/25 Status: Ordered Quantity: 2.0 Unit: mL Repeat number: 1 Start: 01-29-2025 inject 3 mg by subcu taneous injection every week Trulicity Pen 3 mg/0.5 mL subcutaneous solution See Instructions, ADMINISTER 3 MG UNDER THE SKIN EVERY WEEK, # 2 mL, Refills(s) 0, Pharmacy: [facility] #16, 168, cm, 01/29/25 8:19:00 EDT, Height/Length Dosing, 159, kg, 01/24/25 8:55:00 EDT, Weight Dosing Start Date: 01/29/25 Status: Ordered Quantity: 2.0 Unit: mL Repeat number: 1 Start: 12-17-2024 inject 3 mg by subcu taneous injection every week Trulicity Pen 3 mg/0.5 mL subcutaneous solution See Instructions, ADMINISTER 3 MG UNDER THE SKIN EVERY WEEK, # 2 mL, Refills(s) 0, Pharmacy: [facility] #[id number], 168, cm, 11/27/24 14:20:00 EDT, Height/Length Dosing, 159.8, kg, 11/27/24 14:20:00 EDT, Weight Dosing Start Date: 12/17/24 Status: Ordered Quantity: 2.0 Unit: mL Repeat number: 1 Start: 10-01-2024 inject 3 mg by subcu taneous injection every week Trulicity Pen 3 mg/0.5 mL subcutaneous solution 3 mg, SubCutaneous, qWeek, # 2 mL, Refills(s) 2, Pharmacy: [facility] #[id number], 168, cm, 09/12/24 13:00:00 EDT, Height/Length Dosing, 154.1, kg, 09/12/24 13:00:00 EDT, Weight Dosing Start Date: 10/01/24 Status: Ordered Quantity: 2.0 Unit: mL Repeat number: 3 Indications: Type 2 diabetes mellitus with other specified complication; Start: 02-22-2024 inject 3 mg by subcu taneous injection every week Trulicity Pen 3 mg/0.5 mL subcutaneous solution 3 mg, SubCutaneous, qWeek, # 4 EA, Refills(s) 2, Pharmacy: [facility] #[id number], 167, cm, 02/22/24 13:09:00 EDT, Height/Length Dosing, 137, kg, 02/22/24 13:09:00 EDT, Weight Dosing Start Date: 02/22/24 Status: Ordered Start: 01-17-2024 Trulicity Pen 1.5 mg/0.5 mL subcutaneous solution See Instructions, inject 1 AND 1/2 milligrams subcutaneously weekly, # 2 mL, Refills(s) 0, Pharmacy: [facility] #[id number], 167.6, cm, 12/23/23 10:59:00 EDT, Height/Length Dosing, 136, kg, 12/23/23 10:59:00 EDT, Weight Dosing Start Date: 01/17/24 Status: Ordered Start: 12-22-2023 inject 1.5 mg by sub cutaneous injection every week Trulicity Pen 1.5 mg/0.5 mL subcutaneous solution 1.5 mg, SubCutaneous, qWeek, # 4 EA, Refills(s) 0, Pharmacy: [facility] #[id number], 168, cm, 12/06/23 14:55:00 EDT, Height/Length Dosing, 139, kg, 12/06/23 14:55:00 EDT, Weight Dosing Start Date: 12/22/23 Status: Ordered Start: 10-11-2023 inject 1.5 mg by sub cutaneous injection every week Trulicity Pen 1.5 mg/0.5 mL subcutaneous solution 1.5 mg, SubCutaneous, qWeek, # 4 EA, Refills(s) 0, Pharmacy: [facility] #[id number], 168, cm, 10/11/23 14:32:00 EDT, Height/Length Dosing, [...] Daily, # 90 tab(s), Refills(s) 4, Pharmacy: [facility] #[id number], 168, cm, 09/12/24 13:00:00 EDT, Height/Length Dosing, [...] Daily, # 180 cap(s), Refills(s) 4, Pharmacy: [facility] #16, 168, cm, 01/29/25 8:19:00 EDT, Height/Length [...] source) Corticosteroid Start: 04-09-2025 Flonase 0.05 mg/inh Billings 2 spray(s), Nasal, Daily, 16 gram, Refill(s) 0, each nostril, [facility] #16, 168, cm, 04/09/25 11:43:00 EDT, Height/Length [...] for 30 day(s), 60 blister(s), Refill(s) 0, [facility] #[id number], 168, cm, 11/27/24 14:20:00 EDT, Height/Length Dosing, [...] BID, # 60 tab(s), Refills(s) 2, Pharmacy: [facility] #16, 168, cm, 01/01/25 13:49:00 EDT, Height/Length Dosing, 161.7, kg, 01/01/25 13:49:00 EDT, Weight Dosing Start Date: 01/01/25 Status: Ordered Quantity: 60.0 Unit: tab(s) Repeat number: 3 Indications: Unspecified diastolic (congestive) heart failure; Localized edema; Start: 12-29-2024 take 1 tablet by manish th twice daily furosemide 40 mg Tab 40 mg = 1 tab(s), Oral, BID, # 60 tab(s), Refills(s) 0, Pharmacy: [facility] #16, 168, cm, 12/27/24 10:40:00 EDT, Height/Length [...] Daily, # 90 tab(s), Refills(s) 1, Pharmacy: [facility] #[id number], 168, cm, 06/05/24 13:03:00 EST, Height/Length Dosing, 145.9, kg, 06/05/24 13:03:00 EST, Weight Dosing Start Date: 06/05/24 Status: Ordered Quantity: 90.0 Unit: tab(s) Repeat number: 2 Indications: Localized edema; Start: 09-22-2022 Lasix 20 mg Ta b 20 mg = 1 tab(s), Oral, As Directed, # 30 tab(s), Refills(s) 1, Pharmacy: [facility] #[id number], 167, cm, 09/29/22 11:37:00 EDT, Height/Length Dosing, 149.2, kg, 09/29/22 11:37:00 EDT, Weight Dosing Start Date: 09/29/22 Status: Ordered Start: 09-14-2022 take 1 tablet by manish once daily furosemide 40 mg Tab 40 mg = 1 tab(s), Oral, Daily, # 90 tab(s), Refills(s) 1, Pharmacy: [facility] #[id number], 167.6, cm, 12/23/23 10:59:00 EDT, Height/Length Dosing, 136, kg, 12/23/23 10:59:00 EDT, Weight Dosing Start Date: 01/31/24 Status: Ordered Start: 08-20-2022 take 2 tablets by mo [facility] once daily Lasix 20 mg Tab 40 mg = 2 tab(s), Oral, Daily, Take with potassium supplment., # 180 tab(s), Refills(s) 5, Pharmacy: [facility] #[id number], 163, cm, 08/20/22 14:05:00 EST, Height/Length Dosing, [...] Daily, # 90 tab(s), Refills(s) 3, Pharmacy: [facility] #16, 168, cm, 04/09/25 11:43:00 EDT, Height/Length Dosing, 160.8, kg, 04/09/25 11:43:00 EDT, Weight Dosing Start Date: 04/09/25 Status: Ordered Quantity: 90.0 Unit: tab(s) Repeat number: 4 Start: 11-27-2024 take 1 tablet by manish th once daily glipiZIDE 2.5 mg ER Tab 2.5 mg = 1 tab(s), Oral, Daily, # 90 tab(s), Refills(s) 1, Pharmacy: [facility] #[id number], 168, cm, 11/27/24 14:20:00 EDT, Height/Length Dosing, [...] # 90 tab(s), Refills(s) 1, Pharmacy: [facility] [place] [address], 163, cm, 12/30/21 11:09:00 EDT, Height/Length Dosing, 154, kg, 12/30/21 11:09:00 EDT, Weight Dosing Start Date: 12/30/21 Status: Ordered Glucometer (20 sources) Start: 06-03-2021 Glucometer Glu cometer, See Instructions, 1 EA, 0, Glucometer to test BS TID and PRN dx E11.9, [facility], Supply, 170, cm, 05/27/21 8:31:00 EST, Height/Length Dosing, 157.8, kg, 05/27/21 8:31:00 EST, Weight Dosing Start Date: 06/03/21 Status: Ordered Quantity: 1.0 Unit: EA Repeat number: 1 Start: 06-03-2021 Glucometer Glu cometer, See Instructions, 1 EA, 0, Glucometer to test BS TID and PRN dx E11.9, [facility], [facility], 170, cm, 05/27/21 8:31:00 EST, Height/Length Dosing, 157.8, kg, 05/27/21 8:31:00 EST, Weight Dosing Start Date: 06/03/21 Status: Ordered Glucose (1 source) Start: 06-03-2021 Glucose Kit Glucose Kit, See Instructions, 1 EA, 0, Glucose meter. Include autolet, matching test strips, lancets, & alcohol wipes, #300 or as allowed by insurance; Test TID and PRN. DX: E11.9, [facility], [facility], 170, cm, 05/27/21 8:31:00 EST, Height... Start Date: 06/03/21 Status: Ordered hydroCHLOROthiazide 50 mg oral tablet (20 sources) Thiazide Diuretic Start: 04-13-2022 take 1 tablet by mouth once daily hydrochlorothiazide 50 mg Tab 50 mg = 1 tab(s), Oral, Daily, # 90 tab(s), Refills(s) 1, [facility]acy: [facility] #[id number], 163, cm, 12/30/21 11:09:00 EDT, Height/Length Dosing, 154, kg, 12/30/21 11:09:00 EDT, Weight Dosing Start Date: 04/13/22 Status: Ordered Start: 08-03-2021 take 1 tablet by manish once daily hydrochlorothiazide 50 mg Tab 50 mg = 1 tab(s), Oral, Daily, # 30 tab(s), Refills(s) 5, Pharmacy: [facility] [employer], 170, cm, 07/28/21 10:34:00 EST, Height/Length Dosing, 152, kg, 07/28/21 10:34:00 EST, Weight Dosing Start Date: 08/03/21 Status: Ordered take 2 tablets by mo [facility] once daily hydroCHLOROthiazide (HYDRODIURIL) [...] cap(s), Refills(s) 5, Pharmacy: [facility], 170, cm, 05/27/21 8:31:00 EST, Height/Length Dosing, 157.8, kg, 05/27/21 8:31:00 EST, Weight Dosing Start Date: 05/29/21 Status: Ordered loratadine 10 mg oral tablet (20 sources) Start: 09-23-2020 take 1 tablet by mouth once daily as needed loratadine 10 mg Tab 10 mg = 1 tab(s), Oral, Daily, PRN as needed for allergy symptoms, # 90 tab(s), Refills(s) 3, Pharmacy: [facility] #[id number], 163, cm, 12/30/21 11:09:00 EDT, Height/Length Dosing, [...] 60 tab(s), Refills(s) 2, Pharmacy: [facility], 170, cm, 07/28/21 10:34:00 EST, Height/Length Dosing, 152, kg, 07/28/21 10:34:00 EST, Weight Dosing Start Date: 08/24/21 Status: Ordered methylPREDNISolone 4 mg oral tablet (1 source) Corticosteroid Start: 04-09-2025 End: 04-15-2025 Medrol 4 mg Tab = 1 packet(s), Oral, As Directed, as directed on package labeling, X 6 day(s), # 21 tab(s), Refills(s) 0, Pharmacy: [facility] #[facility], 168, cm, 04/09/25 11:43:00 EDT, Height/Length [...] qPM, # 90 tab(s), Refills(s) 2, Pharmacy: [facility] #[facility], 168, cm, 04/09/25 11:43:00 EDT, Height/Length Dosing, 160.8, kg, 04/09/25 11:43:00 EDT, Weight Dosing Start Date: 04/09/25 Status: Ordered Quantity: 90.0 Unit: tab(s) Repeat number: 3 Start: 10-16-2019 take 1 tablet by manish th once daily in the evening Singulair 10 mg Tab 10 mg = 1 tab(s), Oral, qPM, # 30 tab(s), Refills(s) 2, Pharmacy: [address], 170, cm, 10/16/19 9:09:00 EDT, Height/Length [...] at a time, for 24 hours only, [facility], 168, cm, 01/02/25 13:43:00 EDT, Height/Length Dosing, 159, kg, 01/02/25 13:43:00 EDT, Weight Dosing Start Date: 01/02/25 Stop Date: 01/23/25 Status: Ordered Quantity: 21.0 Unit: patch(es) Repeat number: 1 Start: 09-22-2022 End: 10-06-2022 nicotine 21 mg/24 hr Transde rm ER Film 1 patch(es), Topical, Daily for 14 day(s), 14 EA, Refill(s) 0, [facility] #[id number], 167, cm, 09/22/22 8:24:00 EDT, Height/Length Dosing, 157.4, kg, 09/22/22 8:24:00 EDT, Weight Dosing Start Date: 09/22/22 Stop Date: 10/06/22 Status: Ordered nystatin 100 unt/mg topical powder (3 sources) Polyene Antifungal Start: 01-02-2025 nystatin Top 100,000 units/g Pwdr 1 beto, Topical, BID, 15 gram, Refill(s) 1, [facility], 168, cm, 01/02/25 13:43:00 EDT, Height/Length [...] Daily, # 90 tab(s), Refills(s) 4, Pharmacy: [facility], 168, cm, 01/02/25 13:43:00 EDT, Height/Length Dosing, 159, kg, 01/02/25 13:43:00 EDT, Weight Dosing Start Date: 01/15/25 Status: Ordered Quantity: 90.0 Unit: tab(s) Repeat number: 5 Start: 09-01-2019 take 1 tablet by manish th once daily Pantoprazole [address] Tab 40 mg = 1 tab(s), Oral, Daily, # 90 tab(s), Refills(s) 3, Pharmacy: [facility] #[id number], 167, cm, 02/22/24 13:09:00 EDT, Height/Length Dosing, 137, kg, 02/22/24 13:09:00 EDT, Weight Dosing Start Date: 05/07/24 Status: Ordered Quantity: 90.0 Unit: tab(s) Repeat number: 4 rosuvastatin calcium 40 mg oral tablet (20 sources) HMG-CoA Reductase Inhibitor Start: 04-09-2025 take 1 tablet by mouth once daily Crestor 40 mg Tab 40 mg = 1 tab(s), Oral, Daily, # 90 tab(s), Refills(s) 3, Pharmacy: [facility] #16, 168, cm, 04/09/25 11:43:00 EDT, Height/Length Dosing, 160.8, kg, 04/09/25 11:43:00 EDT, Weight Dosing Start Date: 04/09/25 Status: Ordered Quantity: 90.0 Unit: tab(s) Repeat number: 4 Indications: Mixed hyperlipidemia; Start: 11-27-2024 take 1 tablet by manish once daily Crestor 40 mg Tab 40 mg = 1 tab(s), Oral, Daily, # 90 tab(s), Refills(s) 3, [id number], 168, cm, 11/27/24 14:20:00 EDT, Height/Length Dosing, [...] Daily, # 90 tab(s), Refills(s) 3, Pharmacy: [facility] #[id number], 167, cm, 05/09/23 8:15:00 EST, Height/Length Dosing, 145.6, kg, 05/09/23 8:15:00 EST, Weight Dosing Start Date: 06/28/23 Status: Ordered Start: 12-30-2021 take 1 tablet by manish th once daily Crestor 40 mg Tab 40 mg = 1 tab(s), Oral, Daily, # 30 tab(s), Refills(s) 5, Pharmacy: [facility], 163, cm, 12/30/21 11:09:00 EDT, Height/Length [...] Daily, # 90 tab(s), Refills(s) 4, Pharmacy: [facility]16, 168, cm, 01/02/25 13:43:00 EDT, Height/Length Dosing, 159, kg, 01/02/25 13:43:00 EDT, Weight Dosing Start Date: 01/15/25 Status: Ordered Quantity: 90.0 Unit: tab(s) Repeat number: 5 Indications: Essential (primary) hypertension; Start: 06-05-2024 take 1 tablet by mainsh th once daily spironolactone 25 mg Tab 25 mg = 1 tab(s), Oral, Daily, # 90 tab(s), Refills(s) 1, Pharmacy: [facility] #[id number], 168, cm, 06/05/24 13:03:00 EST, Height/Length Dosing, 145.9, kg, 06/05/24 13:03:00 EST, Weight Dosing Start Date: 06/05/24 Status: Ordered Quantity: 90.0 Unit: tab(s) Repeat number: 2 Indications: Essential (primary) hypertension; Start: 12-14-2022 End: 04-08-2024 take 1 tablet by mouth once daily spironolactone 25 mg Tab 25 mg = 1 tab(s), Oral, Daily, X 90 day(s), # 90 tab(s), Refills(s) 1, Pharmacy: [facility] #[id number], 168, cm, 10/11/23 14:32:00 EDT, Height/Length Dosing, 160.2, kg, 10/11/23 14:32:00 EDT, Weight Dosing Start Date: 10/11/23 Stop Date: 04/08/24 Status: Ordered Start: 09-10-2022 take 1 tablet by manish th twice daily spironolactone 25 mg Tab 25 mg = 1 tab(s), Oral, BID, # 60 tab(s), Refills(s) 4, [facility]acy: [facility] #[id number], 163, cm, 09/06/22 11:28:00 EST, Height/Length Dosing, 154, kg, 09/06/22 11:28:00 EST, Weight Dosing Start Date: 09/20/22 Status: Ordered Start: 08-23-2022 take 1 tablet by manish th twice daily spironolactone 25 mg Tab 25 mg = 1 tab(s), Oral, BID, # 60 tab(s), Refills(s) 0, Pharmacy: [facility] #[id number], 163, cm, 08/20/22 14:05:00 EST, Height/Length Dosing, 155, kg, 08/20/22 14:05:00 EST, Weight Dosing Start Date: 08/23/22 Status: Ordered Symbicort 160/4.5 inhalation aerosol with adapter (5 sources) Start: 07-23-2022 Symbicort 160/ 4.5 inhalation aerosol with adapter 2 puff(s), Inhalation, BID, 1 EA, Refill(s) 5, rinse mouth and throat after use, [facility] #[id number], 163, cm, 12/30/21 11:09:00 EDT, Height/Length Dosing, 154, kg, 12/30/21 11:09:00 EDT, Weight Dosing Start Date: 07/23/22 Status: Ordered Start: 10-26-2021 take 2 puff(s) by in halation twice daily Symbicort 160/4.5 inhalation aerosol with adapter 2 puff(s), Inhalation, BID, 1 EA, Refill(s) 5, rinse mouth and throat after use, [facility], 170, cm, 07/28/21 10:34:00 EST, Height/Length Dosing, 152, kg, 07/28/21 10:34:00 EST, Weight Dosing Start Date: 10/26/21 Status: Ordered 60 actuat tiotropium 0.24058 mg/actuat inhalation spray (20 sources) Anticholinergic Start: 12-30-2021 take 2 puff(s) by inhalation once daily Spiriva Respimat 1.25 mcg/inh inhalation aerosol 2 puff(s), Inhalation, Daily, 3 EA, Refill(s) 3, [facility], 163, cm, 12/30/21 11:09:00 EDT, Height/Length [...] 30 tab(s), Refills(s) 0, Pharmacy: [facility] #[id number], 167, cm, 05/09/23 8:15:00 EST, Height/Length Dosing, 145.6, kg, 05/09/23 8:15:00 EST, Weight Dosing Start Date: 05/09/23 Status: Ordered Start: 04-26-2023 take 1 tablet by manish th every eight hours as needed for muscle spasms tiZANidine 4 mg Tab 4 mg = 1 tab(s), Oral, q8hr, PRN Spasm, # 20 tab(s), Refills(s) 0, [facility]: [id number], 167, cm, 04/26/23 11:10:00 EDT, Height/Length Dosing, [...] 28 tab(s), Refills(s) 0, [facility]: [facility] #[id number], 167.6, cm, 12/23/23 10:59:00 EDT, Height/Length Dosing, 136, kg, 12/23/23 10:59:00 EDT, Weight Dosing Start Date: 01/09/24 Status: Ordered Start: 11-25-2023 take 1 tablet by manish th every six hours as needed for pain traMADOL 50 mg Tab 50 mg = 1 tab(s), Oral, q6hr, PRN for pain, # 28 tab(s), Refills(s) 0, [facility]: [facility] #[id number], 168, cm, 11/25/23 14:36:00 EDT, Height/Length Dosing, [...] 30 tab(s), Refills(s) 0, [facility]: [facility] #[id number], 168, cm, 10/11/23 14:32:00 EDT, Height/Length Dosing, 160.2, kg, 10/11/23 14:32:00 EDT, Weight Dosing Start Date: 10/11/23 Status: Ordered Start: 08-10-2023 take 1 tablet by manish once daily at bedtime traZODONE 50 mg Tab 50 mg = 1 tab(s), Oral, Once a day (at bedtime), # 30 tab(s), Refills(s) 0, Pharmacy: [facility] #[id number], 167, cm, 08/10/23 14:24:00 EST, Height/Length Dosing, 151.4, kg, 08/10/23 14:24:00 EST, Weight Dosing Start Date: 08/10/23 Status: Ordered Start: 10-20-2020 take 2 tablets by mo [facility] once daily at bedtime as needed traZODONE 150 mg Tab 300 mg = 2 tab(s), Oral, Once a day (at bedtime), PRN Insomnia, # 180 tab(s), Refills(s) 1, [facility]: [facility], 170, cm, 10/13/20 9:06:00 EDT, Height/Length Dosing, 153.3, kg, 10/13/20 9:06:00 EDT, Weight Dosing Start Date: 10/20/20 Status: Ordered take 1 tablet by manish once daily as needed for sleep traZODone (DESYREL) 150 MG tablet Take 1 tablet by mouth nightly as needed for Sleep 0 Active take 2 tablets by mo [facility] once daily traZODone (DESYREL) 150 [...] meals, # 60 tab(s), Refills(s) 4, Pharmacy: [facility] #[id number], 167.5, cm, 10/18/22 13:30:00 EDT, Height/Length Dosing, [...] varenicline, # 11 tab(s), Refills(s) 0, Pharmacy: [facility] #[id number], 167.5, cm, 10/18/22 13:30:00 EDT, Height/Length Dosing, [...] hours, # 2 tab(s), Refills(s) 0, Pharmacy: [facility], 168, cm, 01/02/25 13:43:00 EDT, Height/Length [...] 1 EA, 0, Nebulizer Machine, [facility] #[id number], Supply, 168, cm, 10/11/23 14:32:00 EDT, Height/Length Dosing, 160.2, kg, 10/11/23 14:32:00 EDT, Weight Dosing Start Date: 10/11/23 Status: Ordered Quantity: 1.0 Unit: EA Repeat number: 1 Indications: Moderate persistent asthma, uncomplicated; Start: 10-11-2023 Nebulizer Mach ine Nebulizer Machine, See Instructions, 1 EA, 0, Nebulizer Machine, [facility] #[id number], Supply, 168, cm, 10/11/23 14:32:00 EDT, Height/Length Dosing, 160.2, kg, 10/11/23 14:32:00 EDT, Weight Dosing Start Date: 10/11/23 Status: Ordered Start: 10-02-2019 Nebulizer Mach ine Nebulizer Machine, See Instructions, 1 EA, 0, Nebulizer Machine, [facility], Supply, 170, cm, 10/02/19 13:41:00 EDT, Height/Length Measured, 156, kg, 10/02/19 13:41:00 EDT, Weight Measured Start Date: 10/02/19 Status: Ordered Nebulizer Tubing and Mouthpiece Kit (20 sources) Start: 10-11-2023 Nebulizer Tubi ng and Mouthpiece Kit Nebulizer Tubing and Mouthpiece Kit, See Instructions, 1 kit(s), 0, Nebulizer Tubing and Mouthpiece Kit, [facility] #[id number], Supply, 168, cm, 10/11/23 14:32:00 EDT, Height/Length Dosing, 160.2, kg, 10/11/23 14:32:00 EDT, Weight Dosing Start Date: 10/11/23 Status: Ordered Quantity: 1.0 Unit: kit(s) Repeat number: 1 Indications: Moderate persistent asthma, uncomplicated; Start: 10-11-2023 Nebulizer Tubi ng and Mouthpiece Kit Nebulizer Tubing and Mouthpiece Kit, See Instructions, 1 kit(s), 0, Nebulizer Tubing and Mouthpiece Kit, [facility] #[id number], Supply, 168, cm, 10/11/23 14:32:00 EDT, Height/Length Dosing, 160.2, kg, 10/11/23 14:32:00 EDT, Weight Dosing Start Date: 10/11/23 Status: Ordered Start: 10-02-2019 Nebulizer Tubi ng and Mouthpiece Kit Nebulizer Tubing and Mouthpiece Kit, See Instructions, 1 kit(s), 0, Nebulizer Tubing and Mouthpiece Kit, [facility], Supply, 170, cm, 10/02/19 13:41:00 EDT, Height/Length Measured, 156, kg, 10/02/19 13:41:00 EDT, Weight Measured Start Date: 10/02/19 Status: Ordered polyethylene glycol 3350 [id number] mg / potassium chloride 2970 mg / sodium bicarbonate 6740 mg / sodium chloride 5860 mg / sodium sulfate 50166 mg powder for oral solution (1 source) [...] Lasix, # 90 tab(s), Refills(s) 4, Pharmacy: [facility], 168, cm, 01/29/25 8:19:00 EDT, Height/Length [...] Lasix, # 90 tab(s), Refills(s) 4, Pharmacy: [facility], 168, cm, 01/29/25 8:19:00 EDT, Height/Length [...] days, # 20 tab(s), Refills(s) 0, Pharmacy: [facility], 168, cm, 12/27/24 10:40:00 EDT, Height/Length [...] 6 tab(s), Refills(s) 0, [facility]acy: [facility] #[id number], 167, cm, 04/26/23 11:10:00 EDT, Height/Length Dosing, [...] Cough, 1 EA, Refill(s) 1, [facility] #[id number], 163, cm, 12/30/21 11:09:00 EDT, Height/Length Dosing, 154, kg, 12/30/21 11:09:00 EDT, Weight Dosing Start Date: 04/13/22 Status: Ordered Start: 09-23-2020 take 2 puff(s) by in halation four times daily Ventolin HFA 90 mcg/inh Aerosol 2 puff(s), Inhalation, QID Cough, 1 EA, Refill(s) 0, [facility], 170, cm, 09/22/20 10:15:00 EDT, Height/Length Dosing, 155.5, kg, 09/22/20 10:15:00 EDT, Weight Dosing Start Date: 09/23/20 Status: Ordered Ventolin HFA 90 mcg/inh Aerosol-Adpt (20 sources) Start: 10-01-2022 take 1 dose by inhalation every six hours Ventolin HFA 90 mcg/inh Aerosol-Adpt 2 puff(s), Inhalation, q6hr for wheezing, 1 EA, Refill(s) 1, [facility] #[id number], 167, cm, 09/29/22 11:37:00 EDT, Height/Length Dosing, 149.2, kg, 09/29/22 11:37:00 EDT, Weight Dosing Start Date: 10/01/22 Status: Ordered Start: 07-23-2022 take 2 puff(s) by in halation every six hours for wheezing Ventolin HFA 90 mcg/inh Aerosol-Adpt 2 puff(s), Inhalation, q6hr for wheezing, 18 gram, Refill(s) 1, [facility] #[id number], 163, cm, 12/30/21 11:09:00 EDT, Height/Length Dosing, 154, kg, 12/30/21 11:09:00 EDT, Weight Dosing Start Date: 07/23/22 Status: Ordered Vitamin D3 5000 intl units oral capsule (20 sources) Start: 10-14-2022 take 1 capsule by mouth once daily at mealtime Vitamin D3 5000 intl units oral capsule 5,000 International_Unit = 1 cap(s), Oral, Daily, with food, # 100 cap(s), Refills(s) 1, Pharmacy: [facility] #[id number], 170, cm, 10/13/22 9:06:00 EDT, Height/Length Dosing, [...] current use of drug therapy; Translations: [Other supervisor intermediates (current) drug therapy] Onset: 3 Episodic Other [...] Care Team Attending Physician - Yocasta SMITH, WARDROBE CUSTODIAN-CHART COLLECTORMyron Primary Care Physician - Yocasta SMITH, WARDROBE CUSTODIAN-CHART COLLECTORMyron This Is Your Medications List albuterol (Albuterol (Eqv-Ventolin HFA) 90 mcg/inh inhalation aerosol) albuterol (albuterol 0.083% Inh Rochelle 3 mL) amoxicillin-clavulana te (Augmentin 875 mg-125 mg Tab) fluticasone nasal (Flonase 0.05 mg/inh [place]) glipiZIDE (glipiZIDE 2.5 mg ER Tab) methylPREDNISolone [...] LEONARD, Rick Gipson Where: [facility] You Need to Schedule the Following Appointments Follow Up with Yocasta MSN, WARDROBE CUSTODIAN-CHART COLLECTOR, Myron Hamilton When: In 3 months Comments: chronic care Where: [address] [place] [phone] Medications What How Much When Why Instructions New amoxicillin-clavulana te (Augmentin 875 mg-125 mg Tab) 1 Tablets By Mouth Every 12 hours Duration: 7 Days Pickup at [facility] New fluticasone nasal (Flonase 0.05 mg/ inh [place]) 2 Sprays Nasal Inhalation Every day each nostril Pickup at [facility] New methylPREDNISolone (Medrol 4 mg Tab) 1 Packets By Mouth As Directed Duration: 6 Days as directed on package labeling [facility] New montelukast (Singulair 10 mg Tab) 1 Tablets By Mouth Once a day (in the evening) Refills: 2 Pickup at [facility] Changed albuterol (Albuterol (Eqv-Ventolin HFA) 90 mcg/ inh inhalation aerosol) 2 Puffs Inhalation Every 6 hours as needed for Shortness of breath or wheezing COPD with acute exacerbation Pickup at [facility] Changed albuterol (albuterol 0.083% Inh Rochelle 3 mL) 3 Milliliter Nebulized inhalation (aerosol) Every 6 hours as needed for Shortness of breath or wheezing Moderate persistent asthma Pickup at [facility] Unchanged glipiZIDE (glipiZIDE 2.5 mg ER Tab) 1 Tablets By Mouth Every day Pickup at [facility] Unchanged rosuvastatin (Crestor 40 mg Tab) 1 Tablets By Mouth Every day Mixed hyperlipidemia Pickup at [facility] Unchanged aripiprazole (Abilify 5 mg [...] fraction Co (more content not included)... Normal [facility] Family Medicine Office/Clini c Noteon 04-09-2025 Family [...] Then she develops this respiratory infection. Taking ckgs-txi-cskjksq medication to help with the symptoms with [...] breath or wheezing, 100 EA, Refill(s) 1, [facility], 168, cm, 04/09/25 11:43:00 EDT, [...] breath or wheezing, 6.7 gm, Refill(s) 1, [facility], 168, cm, 04/09/25 11:43:00 EDT, Height/Length Dosing, 160.8, kg, 04/09/25 11:43:00 EDT, Weight Dosing amoxicillin-clavulana te, 1 tab(s), Oral, q12hr for 7 day(s), 14 tab(s), Refill(s) 0, [facility], 168, cm, 04/09/25 11:43:00 EDT, Height/Length Dosing, 160.8, kg, 04/09/25 11:43:00 EDT, Weight Dosing fluticasone nasal, 2 spray(s), Nasal, Daily, 16 gram, Refill(s) 0, each nostril, [facility] (more content not included)... Normal [facility] Comment on above: Result Comment: Elec tronically Signed By: Yocasta MSN, WARDROBE CUSTODIAN- CHART COLLECTOR, Myron Hamilton\.br\Date and Time Signed: 04/09/25 12:15 [...] no jayme (more content not included)... Normal [facility] Comment on above: Result Comment: [...] Care Team Attending Physician - Yocasta MSN, WARDROBE CUSTODIAN-CHART COLLECTORMyron. Primary Care Physician - Yocasta SMITH, WARDROBE CUSTODIAN-CHART COLLECTORMyron. This Is Your Medications List buPROPion (buPROPion [...] With: Yocasta SMITH, DARLEEN-IRVING, Myron Hamilton Where: [facility] [address] [place] [address]- Tuesday 1:15 PM EDT With: Rick Hernandez PA-C Where: [facility] You Need to Schedule the Following Appointments Follow Up with Yocasta SMITH, DARLEEN-IRVING, Myron Hamilton When: In 1 month Comments: weight loss, initial 40 min Where: [address] [place] [phone] Medications What How Much When Why Instructions New buPROPion (buPROPion 150 mg/ 24 hours XL Tab) 1 Tablets By Mouth Every 24 hours Pickup at [facility] Unchanged albuterol (Albuterol (Eqv-Ventolin HFA) 90 [...] Moderate pe (more content not included)... Normal [facility] Family Medicine Office/Clini c Noteon 02-04-2025 Family [...] cigarettes, uncomplicated) (more content not included)... Normal [facility] Comment on above: Result Comment: [...] Tuesday 1:40 PM EDT With: Yocasta MSN, WARDROBE CUSTODIAN-CHART COLLECTOR, Myron Hamilton Where: [facility] [address] [place] [address]- Tuesday 1:15 PM EDT With: David LEONARD, Rick Gipson Where: [facility] Medications What How Much [...] 1 (more content not included)... Normal [facility] Office/Cl inic Noteon [...] of per (more content not included)... Normal [facility] Comment on above: Result Comment: Elec tronically Signed By: Rick Hernandez PA-C\elsie\Date and Time Signed: 01/29/25 10:10 EDT [facility] 01-29-20 [facility] Case Information Case Priority: None Programs: -- Referral Source: System Engineer Referral Reason: Care coordination Case Type: Transition Care Management Risk Score: -- Case Status: Enrolled (December 31, 2024) Date Assigned: December 31, 2024 Assigned By: Gracy Maxwell R.N. Date Enrolled: December 31, 2024 Assigned Primary Personnel: Gracy Maxwell R.N. Assigned Secondary Personnel: -- Case Physician: Yocasta MSN, WARDROBE CUSTODIAN-CHART COLLECTOR, Myron Hamilton Problems Ongoing Alcohol abuse, in [...] See Instructions nystatin 100,000 units/mL Oral Susp, 168127 unit(s)= 5 mL, Oral-Swish&Swallow, QID nystatin Top [...] 12/31/24 09:55: (more content not included)... Normal [facility] BNPon 01-24-2025 Int Ctr BNP Pass Normal [facility] Comment on above: Performed By: #### 1 [id number] #### [facility] [address] [place] [address] Natriuretic peptide B (Bld) [Mass/Vol] 20 pg/mL Normal 5-80 [facility] Comment on above: Performed By: #### 1 [id number] #### [facility] [address] [place] [address] CBC w/ Auto Diffon 5 Basophil Absolute 0.2 E9/L Normal 0.0-0.2 [facility] Comment on above: Performed By: #### 2 [id number] #### [facility] [address] [place] [address] Basophils/100 WBC (Bld) 3.1 % High 0.0-2.0 [facility] Comment on above: Performed By: #### 2 [id number] #### [facility] [address] [place] [address] Eos Absolute 0.1 E9/L Normal 0.0-0.5 [facility] Comment on above: Performed By: #### 2 [id number] #### [facility] [address] [place] [address] Eosinophils/100 WBC (Bld) 2.7 % Normal 0.0-8.0 [facility] Comment on above: Performed By: #### 2 [id number] #### [facility] [address] [place] [address] Erythrocyte distribution width (RBC) [Ratio] 15.8 % High 10.9-14.2 [facility] Comment on above: Performed By: #### 2 [id number] #### [facility] [address] [place] [address] Hematocrit (Bld) [Volume fraction] 38.3 % Normal 34.0-46.0 [facility] Comment on above: Performed By: #### 2 [id number] #### [facility] [address] [place] [address] Hemoglobin (Bld) [Mass/Vol] 13.0 g/dL Normal 12.0-16.0 [facility] Comment on above: Performed By: #### 2 [id number] #### [facility] [address] [place] [address] Lymph Absolute 0.8 E9/L Low 1.0-4.0 [facility] Comment on above: Performed By: #### 2 [id number] #### [facility] [address] [place] [address] Lymphocytes/100 WBC (Bld) 15.4 % Normal 14.0-50.0 [facility] Comment on above: Performed By: #### 2 [id number] #### [facility] [address] [place] [address] MCH (RBC) [Entitic mass] 31.3 pg Normal 27.0-34.0 [facility] Comment on above: Performed By: #### 2 [id number] #### [facility] [address] [place] [address] MCHC (RBC) [Mass/Vol] 33.9 g/dL Normal 31.4-36.0 [facility] Comment on above: Performed By: #### 2 [id number] #### [facility] [address] [place] [address] MCV (RBC) [Entitic vol] 92.2 fL Normal 80.0-100.0 [facility] Comment on above: Performed By: #### 2 [id number] #### [facility] [address] [place] [address] [place] Absolute 0.4 E9/L Normal 0.2-1.0 [facility] Comment on above: Performed By: #### 2 [id number] #### [facility] [address] [place] [address] Monocytes/100 WBC (Bld) 7.3 % Normal 4.0-14.0 [facility] Comment on above: Performed By: #### 2 [id number] #### [facility] [address] [place] [address] Neutro Absolute 3.6 E9/L Normal 2.0-7.5 [facility] Comment on above: Performed By: #### 2 [id number] #### [facility] [address] [place] [address] Neutro Auto 71.5 % Normal 36.0-75.0 [facility] Comment on above: Performed By: #### 2 [id number] #### [facility] [address] [place] [address] Platelet 243.0 E9/L Normal 150.0-500.0 [facility] Comment on above: Performed By: #### 2 [id number] #### [facility] [address] [place] [address] Platelet mean volume (Bld) [Entitic vol] 7.2 fL Normal 6.4-10.8 [facility] Comment on above: Performed By: #### 2 727493 #### [facility] [address] [place] [address] RBC 4.2 E12/L Low 4.3-5.9 [facility] Comment on above: Performed By: #### 2 [id number] #### [facility] [address] [place] [address] WBC 5.0 E9/L Normal 4.0-11.0 [facility] Comment on above: Performed By: #### 2 [id number] #### [facility] [address] [place] [address] CMPon 01-24-2025 Albumin [Mass/Vol] 4.3 g/dL Normal 3.3-5.0 [facility] Comment on above: Performed By: #### 2 [id number] #### [facility] [address] [place] [address] Albumin/Globulin [Mass ratio] 1.5 {ratio} Normal 1.1-2.2 [facility] Comment on above: Performed By: #### 2 [id number] #### [facility] [address] [place] [address] Alk Phos 61 Int._Unit/L Normal 21-98 [facility] Comment on above: Performed By: #### 2 286103 #### [facility] [address] [place] [address] ALT 28 Int._Unit/L Normal 6-46 [facility] Comment on above: Performed By: #### 2 [id number] #### [facility] [address] [place] [address] Anion gap [Moles/Vol] 10 mmol/L Normal 6-16 [facility] Comment on above: Performed By: #### 2 934508 #### [facility] [address] [place] [address] AST 22 Int._Unit/L Normal 5-43 [facility] Comment on above: Performed By: #### 2 [id number] #### [facility] [address] [place] [address] Bili Total 0.4 mg/dL Normal 0.0-1.1 [facility] Comment on above: Performed By: #### 2 324994 #### [facility] [address] [place] [address] BUN/Creat Ratio 20 No Units Normal 10-20 [facility] Comment on above: Performed By: #### 2 [id number] #### [facility] [address] [place] [address] Calcium [Mass/Vol] 9.3 mg/dL Normal 8.9-11.1 [facility] Comment on above: Performed By: #### 2 570862 #### [facility] [address] [place] [address] Chloride [Moles/Vol] 100 mmol/L Low 101-111 [facility] Comment on above: Performed By: #### 2 710042 #### [facility] [address] [place] [address] CO2 [Moles/Vol] 33 mmol/L High 21-31 [facility] Comment on above: Performed By: #### 2 [id number] #### [facility] [address] [place] [address] Creatinine [Mass/Vol] 0.8 mg/dL Normal 0.5-1.3 [facility] Comment on above: Performed By: #### 2 355940 #### [facility] [address] [place] [address] Globulin (S) [Mass/Vol] 2.9 g/dL Normal 1.4-4.0 [facility] Comment on above: Performed By: #### 2 [id number] #### [facility] [address] [place] [address] Glucose [Mass/Vol] 114 mg/dL Normal 55-199 [facility] Comment on above: Performed By: #### 2 [id number] #### [facility] [address] [place] [address] Potassium [Moles/Vol] 3.7 mmol/L Normal 3.5-5.3 [facility] Comment on above: Performed By: #### 2 828727 #### [facility] [address] [place] [address] Protein [Mass/Vol] 7.2 g/dL Normal 6.0-7.8 [facility] Comment on above: Performed By: #### 2 [id number] #### [facility] [address] [place] [address] Sodium [Moles/Vol] 139 mmol/L Normal 135-145 [facility] Comment on above: Performed By: #### 2 [id number] #### [facility] [address] [place] [address] Urea nitrogen [Mass/Vol] 16 mg/dL Normal 5-21 [facility] Comment on above: Performed By: #### 2 311104 #### [facility] [address] [place] [address] CT Abdomen/Pelvis w/ Contras ton 01-24-2025 CT [...] MD Transcribed by: KARSTEN Technologist: LAURA Rodríguez [facility] ED Clinical Summaryon 2024 ED Clinical Summary ED Clinical Summary [place] [id number] ED Clinical Summary Person Information Name: CARMEN BLEDSOE/[place] Age: 64 Years : 1960 Sex: Female Language: Bhutanese PCP: Yocasta SMITH, WARDROBE CUSTODIAN-CHART COLLECTORMyron Marital Status: Single Visit Id: Visit Reason: [...] 01/24/2025 13:34:37 01/24/2025 13:34:37 01/24/2025 13:34:37 ADDRESS: [address] [place] [id number] PHYS DOC NOTES: MEDICAL INFORMATION: Prescriptions Given: New Medications [facility], [address], [place] [id number], [phone] acetaminophen-hydroco done (Blue Grass 325 mg-5 mg oral tablet) 1 Tablets [...] Refills: 3. (more content not included)... Normal [facility] ED Note-Physicianon 01-25-20 ED Note-Physician ED Note-Physician [...] or rigidity noted. Neurological: A&O, normal equal car sweeper strength, normal speech, normal coordination, normal motor, [...] and p (more content not included)... Normal [facility] Comment on above: Result Comment: Elec tronically Signed By: Lui Christiansen PA-C\.br\Date and Time Signed: 01/24/25 16:12 EDT\.br\Electronically Co-Signed By: Oneal Newman DO\.br\Date and Time Co-Signed: 01/24/25 19:04 EDT ED Patient Summaryon 025 ED Patient Summary ED Patient Summary [place] [address] Patient Discharge Instructions Person Information Name: CARMEN BLEDSOE Age: 64 Years Arrival Date: 01/24/2025 08:46:49 Discharge Diagnosis: COPD exacerbation; Laceration of left ear; Left hip pain; Low back pain; Multiple falls; Oral thrush; Osteoarthritis of hip; Shortness of breath Primary Care Physician: Yocasta MSN, WARDROBE CUSTODIAN-CHART COLLECTOR, Myron Hamilton Provider Information Primary Provider: [employer] Salesperson:Lui Christiansen PA-C The exam and treatment you received in the Emergency Department were for an urgent problem and are not intended as complete care. It is important that you follow up with a doctor, nurse practitioner, or physician???s licensed sales assistant for ongoing care. If your symptoms [...] With: Address: When: Myron Rust [address] [facility], [place], [place] [phone] [employer] (1) In 3 days 01/27/2025 Comments: Please call primary care office for close outpatient follow-up regarding thrush, back and hip pain, COPD exacerbation. Take medication as prescribed. Return to ED if symptoms worsen or new symptoms arise. Please ambulate with assistance at home to prevent further falls. Return to ED if you have another fall. With: Address: When: [facility] [address] [place] [phone] [employer] (1) In 3 days 01/27/2025 Comments: Please [...] opioids can be used to help relieve lalvjtws-xa-lfeouq pain and are often prescribed following a [...] your prima (more content not included)... Normal [facility] PT & PTTon 01-24-2025 INR Coag (PPP) [Relative time] 1.00 {INR} Invalid Interpretation Code [facility] Comment on above: Result Comment: INR results are specifically intended to assess patients stabilized on long-term Anticoagulation therapy suggested INR???s ???Less Intensive Anticoagulation??? 2.0 ??? 3.0 Conventional Range 3.0 ??? 4.5 Performed By: #### 1 [id number] #### [facility] [address] [place] [address] PT 11.2 second(s) Normal 9.4-12.5 [facility] Comment on above: Result Comment: 15 [...] the same coagulation reagent and instrumentation as [facility]. Currently there are no coagulation studies available worldwide for children to 14 days, and no normal ranges. Performed By: #### 1 [id number] #### [facility] [address] [place] [address] PTT 32.6 second(s) Normal 25.1-36.5 [facility] Comment on above: Result Comment: Para [...] the same coagulation reagent and instrumentation as [facility]. Currently there are no coagulation studies available worldwide for children to 14 days, and no normal ranges. Heparin therapeutic range (represented by Anti-Factor Xa activity of 0.2 - 0.4 U/mL) corresponds to PTT of 56.6 - 109.0 sec. Performed By: #### 1 [id number] #### [facility] [address] [place] [address] Troponin 0 Hr.on 01-24-2025 Troponin HS 4.50 pg/mL Low 10.10-27.10 [facility] Comment on above: Result Comment: The 95% CI (Confidence Interval) PPV (Positive Predictive Value) for myocardial infarction in females is 38 pg/mL, in males 51 pg/mL. The results should be used in conjunction with clinical conditions of myocardial infarction. (Access High Sensitivity Troponin I Instructions For Use, [employer], February 2018) Performed By: #### 1 [id number] #### [facility] [address] [place] [address] Troponin 1 Hr.on 01-24-2025 Troponin HS 3.90 pg/mL Low 10.10-27.10 [facility] Comment on above: Result Comment: The 95% CI (Confidence Interval) PPV (Positive Predictive Value) for myocardial infarction in females is 38 pg/mL, in males 51 pg/mL. The results should be used in conjunction with clinical conditions of myocardial infarction. (Access High Sensitivity Troponin I Instructions For Use, [employer], February 2018) Performed By: #### 1 [id number] #### [facility] [address] [place] [address] UA with Cult Rflxon 01-25-20 25 Color (U) Colorless Abnormal Yellow [facility] Comment on above: Result Comment: Micr oscopic readings are only performed on those samples that meet specific criteria set forth by [facility]. Performed By: #### 4 [id number] #### [facility] [address] [place] [address] Ketones Ql (U) Negative Normal Negative [facility] Comment on above: Performed By: #### 4 [id number] #### [facility] [address] [place] [address] UA Blood Negative Normal Negative [facility] Comment on above: Performed By: #### 4 [id number] #### [facility] [address] [place] [address] UA Clarity Clear Normal Clear [facility] Comment on above: Performed By: #### 4 [id number] #### [facility] [address] [place] [address] UA Glucose 3+ mg/dL Abnormal Negative [facility] Comment on above: Performed By: #### 4 [id number] #### [facility] [address] [place] [address] UA Leuk Est Negative Normal Negative [facility] Comment on above: Performed By: #### 4 [id number] #### [facility] [address] [place] [address] UA Nitrite Negative Normal Negative [facility] Comment on above: Performed By: #### 4 [id number] #### [facility] [address] [place] [address] UA pH 5.0 Invalid Interpretation Code 5.0-9.0 [facility] Comment on above: Performed By: #### 4 [id number] #### [facility] [address] [place] [address] UA Protein Negative Normal Negative [facility] Comment on above: Performed By: #### 4 [id number] #### [facility] [address] [place] [address] UA Spec Grav 1.016 Invalid Interpretation Code 1.005-1.030 [facility] Comment on above: Performed By: #### 4 [id number] #### [facility] [address] [place] [address] UA Urobilinogen Negative Normal Negative [facility] Comment on above: Performed By: #### 4 [id number] #### [facility] [address] [place] [address] Urobilinogen (U) [Mass/Vol] Negative Normal Negative [facility] Comment on above: Performed By: #### 4 [id number] #### [facility] [address] [place] [address] UA Spec Desc Clean Catch Normal [facility] Comment on above: Performed By: #### 4 [id number] #### [facility] [address] [place] [address] US Lower Extremity Venous Du plex Lefton [...] FINAL REPORT Dictated: 01/24/2025 1:36 pm Byron Grdier MD Signed (Electronic Signature): 01/24/2025 1:36 pm Signed by: Byron Grider MD Transcribed by: KARSTEN Technologist: Marcos RUBIN [facility] XR Chest Single Viewon 01-24 XR Chest [...] Norris DO Transcribed by: KARSTEN Technologist: NICHOLAS [facility] XR Hip 2-3 Views Left + [...] DO Transcribed by: KARSTEN Technologist: NICHOLAS Rodríguez [facility] eGFRon 01-24-2025 eGFR 83 mL/min/1.73 m2 Normal >=59 [facility] Comment on above: Performed By: #### 1 [id number] #### [facility] [address] [place] [address] Reminderson 01-21-2025 Reminders Reminders From: Gracy Maxwell R.N. To: [facility] Sewer Connector; Gracy Maxwell R.N.; Sent: 01/21/2025 12:29:37 EDT Show up: 01/21/2025 12:29:00 EDT Subject: theo #2 final Due Date/Time: 01/28/2025 12:29:00 EDT Reminder/Recall Normal [facility] Pulmonary Function Studieson 01-16-2025 Pulmonary Function Studies [...] therapy. READ BY: Judit Sandoval Dictated: 01/12/2025 [id number] Transcribed: 01/15/2025 cc:Myron Rust, PHILLY-Rory [facility] Comment on above: Result Comment: Elec [...] Care Team Attending Physician - Yocasta MSN, WARDROBE CUSTODIAN-CHART COLLECTORMyron Primary Care Physician - Yocasta MSN, WARDROBE CUSTODIAN-CHART COLLECTORMyron This Is Your Medications List nicotine (nicotine [...] With: Yocasta SMITH, SRINIVAS, Myron Hamilton Where: [place] [address] [phone]- You Need to Schedule the Following Appointments Follow Up with Ycoasta SMITH, SRINIVAS, Myron Hamilton When: In 1 month Where: [address] [place] [phone] Medications What How Much When Why Instructions New nicotine (nicotine 21 mg/ 24 hr Transderm ER Film) 1 Patches Topical Every 24 hours Duration: 21 Days wear only one patch at a time, for 24 hours only Pickup at [facility] #16 Unchanged albuterol (Albuterol (Eqv-Ventolin HFA) 90 [...] morbid obes (more content not included)... Normal [facility] CHEMISTRYOrdered By: Felicity Marin on 01-02-2025 Albumin [...] (abnormal relaxation pattern). [1] List of Providers Oracle Manager: Rick Hernandez PA-C Montessori Toddler Teacher: Dr Phillip Orthopaedics: Dr Martinez LABS Cr/eGFR: [...] Appt. Date: 01/07/2025 12:30 PM Scheduled Provider: [facility] Pulmonary Function Lab Phone: -- Fax: -- [...] further complications. She did follow-up with her senior ssis developer yesterday and she is to follow-up with [...] of cellulitis, (more content not included)... Normal [facility] Comment on above: Result Comment: Elec tronically Signed By: Yocasta SMITH, WARDROBE CUSTODIAN- [place], Myron Hamilton\.br\Date and Time Signed: 01/02/25 15:41 EDT U MA/Cr Ratioon 01-02-2025 Microalb/Cr Ratio NOT CALCULATED Invalid Interpretation Code .0-30.0 [facility] Comment on above: Result Comment: 30-3 00 mg/g Cr indicates an increased risk for diabetic nephropathy. >300 mg/g Cr is consistent with clinical nephropathy. Performed By: #### 1 [id number] #### [facility] [address] [place] [address] U Creatinine 17.8 mg/dL Invalid Interpretation Code [facility] Comment on above: Performed By: #### 1 [id number] #### [facility] [address] [place] [address] U Microalb <0.7 Normal 0.0-1.9 [facility] Comment on above: Performed By: #### 1 [id number] #### [facility] [address] [place] [address] Heart and Vascular Office/Cl inic Noteon 01-01-2025 [...] swelling, but (more content not included)... Normal [facility] Comment on above: Result Comment: Elec tronically Signed By: Rick Hernandez PA-C\.hardik\Date and Time Signed: 01/01/25 14:28 EDT [facility] 01-01-20 [facility] Case Information Case Priority: None Programs: -- Referral Source: System Engineer Referral Reason: Care coordination Case Type: Transition Care Management Risk Score: -- Case Status: Enrolled (December 31, 2024) Date Assigned: December 31, 2024 Assigned By: Gracy Maxwell R.N. Date Enrolled: December 31, 2024 Assigned Primary Personnel: Gracy Maxwell R.N. Assigned Secondary Personnel: -- Case Physician: Yocasta SMITH, WARDROBE CUSTODIAN-CHART COLLECTOR, Myron Hamilton Problems Ongoing Alcohol abuse, in [...] and Intervention (more content not included)... Normal [facility] Coding Queryon 12-30-2024 Coding Query Coding Query [...] [place]; Caller Number: Cuca , Mita Normal [facility] BMPon 12-29-2024 Anion gap [Moles/Vol] 10 mmol/L Normal 6-16 [facility] Comment on above: Performed By: #### 2 [id number] #### [facility] [address] [place] [address] BUN/Creat Ratio 30 No Units High 10-20 [facility] Comment on above: Performed By: #### 2 [id number] #### [facility] [address] [place] [address] Calcium [Mass/Vol] 9.1 mg/dL Normal 8.9-11.1 [facility] Comment on above: Performed By: #### 2 [id number] #### [facility] [address] [place] [address] Chloride [Moles/Vol] 98 mmol/L Low 101-111 [facility] Comment on above: Performed By: #### 2 [id number] #### [facility] [address] [place] [address] CO2 [Moles/Vol] 31 mmol/L Normal 21-31 [facility] Comment on above: Performed By: #### 2 [id number] #### [facility] [address] [place] [address] Creatinine [Mass/Vol] 0.7 mg/dL Normal 0.5-1.3 [facility] Comment on above: Performed By: #### 2 [id number] #### [facility] [address] [place] [address] Glucose [Mass/Vol] 185 mg/dL Normal 55-199 [facility] Comment on above: Performed By: #### 2 [id number] #### [facility] [address] [place] [address] Potassium [Moles/Vol] 4.2 mmol/L Normal 3.5-5.3 [facility] Comment on above: Performed By: #### 2 [id number] #### [facility] [address] [place] [address] Sodium [Moles/Vol] 135 mmol/L Normal 135-145 [facility] Comment on above: Performed By: #### 2 [id number] #### [facility] [address] [place] [address] Urea nitrogen [Mass/Vol] 21 mg/dL Normal 5-21 [facility] Comment on above: Performed By: #### 2 [id number] #### [facility] [address] [place] [address] CBC w/ Auto Diffon 5 Basophil Absolute 0.1 E9/L Normal 0.0-0.2 [facility] Comment on above: Performed By: #### 2 [id number] #### [facility] [address] [place] [address] Basophils/100 WBC (Bld) 0.6 % Normal 0.0-2.0 [facility] Comment on above: Performed By: #### 2 [id number] #### [facility] [address] [place] [address] Eos Absolute 0.0 E9/L Normal 0.0-0.5 [facility] Comment on above: Performed By: #### 2 [id number] #### [facility] [address] [place] [address] Eosinophils/100 WBC (Bld) 0.0 % Normal 0.0-8.0 [facility] Comment on above: Performed By: #### 2 [id number] #### [facility] [address] [place] [address] Erythrocyte distribution width (RBC) [Ratio] 15.6 % High 10.9-14.2 [facility] Comment on above: Performed By: #### 2 [id number] #### [facility] [address] [place] [address] Hematocrit (Bld) [Volume fraction] 39.3 % Normal 34.0-46.0 [facility] Comment on above: Performed By: #### 2 [id number] #### [facility] [address] [place] [address] Hemoglobin (Bld) [Mass/Vol] 13.0 g/dL Normal 12.0-16.0 [facility] Comment on above: Performed By: #### 2 [id number] #### [facility] [address] [place] [address] Lymph Absolute 0.6 E9/L Low 1.0-4.0 [facility] Comment on above: Performed By: #### 2 [id number] #### [facility] [address] [place] [address] Lymphocytes/100 WBC (Bld) 6.3 % Low 14.0-50.0 [facility] Comment on above: Performed By: #### 2 [id number] #### [facility] [address] [place] [address] MCH (RBC) [Entitic mass] 30.4 pg Normal 27.0-34.0 [facility] Comment on above: Performed By: #### 2 [id number] #### [facility] [address] [place] [address] MCHC (RBC) [Mass/Vol] 33.2 g/dL Normal 31.4-36.0 [facility] Comment on above: Performed By: #### 2 [id number] #### [facility] [address] [place] [address] MCV (RBC) [Entitic vol] 91.6 fL Normal 80.0-100.0 [facility] Comment on above: Performed By: #### 2 [id number] #### [facility] [address] [place] [address] [place] Absolute 0.5 E9/L Normal 0.2-1.0 [facility] Comment on above: Performed By: #### 2 [id number] #### [facility] [address] [place] [address] Monocytes/100 WBC (Bld) 5.0 % Normal 4.0-14.0 [facility] Comment on above: Performed By: #### 2 [id number] #### [facility] [address] [place] [address] Neutro Absolute 8.3 E9/L High 2.0-7.5 [facility] Comment on above: Performed By: #### 2 [id number] #### [facility] [address] [place] [address] Neutro Auto 88.1 % High 36.0-75.0 [facility] Comment on above: Performed By: #### 2 [id number] #### [facility] [address] [place] [address] Platelet 286.0 E9/L Normal 150.0-500.0 [facility] Comment on above: Performed By: #### 2 [id number] #### [facility] [address] [place] [address] Platelet mean volume (Bld) [Entitic vol] 7.3 fL Normal 6.4-10.8 [facility] Comment on above: Performed By: #### 2 [id number] #### [facility] [address] [place] [address] RBC 4.3 E12/L Normal 4.3-5.9 [facility] Comment on above: Performed By: #### 2 [id number] #### [facility] [address] [place] [address] WBC 9.4 E9/L Normal 4.0-11.0 [facility] Comment on above: Performed By: #### 2 [id number] #### [facility] [address] [place] [address] CHEMISTRYOrdered By: Vandana ROP User on 12-29-2024 Glucose [Mass/Vol] 200 mg/dL High 55 - 99 mg/dL FTM C POC Subsection Comment on above: Result Comment: Loraine peralta RN/ POC UsernamJUSTYNA Hearn Invalid Interpretation Code [facility] POC Subsection Sodium [Moles/Vol] [id number] mmol/L Invalid Interpretation Code [facility] POC Subsection Sodium [Moles/Vol] [id number] mmol/L Invalid Interpretation Code [facility] POC Subsection Glucose [Mass/Vol] 166 mg/dL High 55 - 99 mg/dL [facility] C POC Subsection Comment on above: Result Comment: Loraine peralta RN/ POC Username HAYDEN MAYERS Invalid Interpretation Code [facility] POC Subsection Sodium [Moles/Vol] [id number] mmol/L Invalid Interpretation Code [facility] POC Subsection Sodium [Moles/Vol] [id number] mmol/L Invalid Interpretation Code [facility] POC Subsection CHEMISTRYOrdered By: SYSTEM SYSTEM on [...] 12-03 Glucose [Mass/Vol] 200 mg/dL High 55-99 [facility] Comment on above: Result Comment: Loraine peralta RN/ Performed By: #### 2 [id number] #### [facility] [address] [place] [address] Glucose [Mass/Vol] 166 mg/dL High 55-99 [facility] Comment on above: Result Comment: Loraine peralta RN/ Performed By: #### 2 [id number] #### [facility] [address] [place] [address] HEMATOLOGYOrdered By: SYSTEM SYSTEM on 12-29-2024 Basophils/100 [...] night. Discuss inceased lasix dose with your senior ssis developer. May discuss adding Entresto or Losartan as outpatient too to help with your heart failure. Return to ER if symptoms return or wrosen Previously Scheduled Follow-Up Appointments Tuesday 2:00 PM EDT With: David LEONARD, Rick Gipson Where: [facility] Tuesday 1:40 PM EDT With: Yocasta MSN, WARDROBE CUSTODIAN-CHART COLLECTOR, Myron Hamilton Where: [facility] [address] [place] [address]- Tuesday 12:30 PM EDT With: Where: [facility] New Follow Up Appointments after Discharge Follow Up with Follow up with your senior ssis developer as Scheduled January 01 When: Follow Up with Myron Rust When: Within 7 to 10 days Comments: Call for followup appointment Where: [address] [place] [phone] Business (1) Medications What How Much When Why Instructions Next Dose New azithromycin (azithromycin 250 mg Tab) 1 Tablets By Mouth Every day COPD with acute exacerbation Duration: 3 Days Pickup at [facility] #16 New predniSONE (predniSONE 10 mg Tab) 1 Tablets By Mouth As Directed COPD with acute exacerbation 4 tabs for 2 days,3 tabs for 2 days,2 tabs for 2 days,1 tab for [address] [facility] #16 Changed cephalexin (cephalexin 500 mg Cap) 1 Capsules By Mouth 4 times a day Cellulitis of leg Duration: [address] [facility]16 Changed furosemide (furosemide 40 mg Tab) 1 Tablets By Mouth 2 times a day Peripheral edema Acute on chronic heart failure with preserved ejection fraction Pickup at [facility] #16 Unchanged albuterol (Albuterol (Eqv-Ventolin HFA) 90 mcg/ inh inhalation aerosol) 2 Puffs Inhalation Every 6 hours as needed for Shortness of breath or wheezing COPD with acute exacerbation Pickup at [facility] #16 Unchanged aripiprazole (Abilify 5 mg [...] and P (more content not included)... Normal [facility] eGFRon 12-29-2024 eGFR 98 mL/min/1.73 m2 Normal >=59 [facility] Comment on above: Performed By: #### 1 [id number] #### [facility] [address] [place] [address] CBC w/ Auto Diffon 5 Basophil Absolute 0.1 E9/L Normal 0.0-0.2 [facility] Comment on above: Performed By: #### 2 [id number] #### [facility] [address] [place] [address] Basophils/100 WBC (Bld) 1.6 % Normal 0.0-2.0 [facility] Comment on above: Performed By: #### 2 [id number] #### [facility] [address] [place] [address] Eos Absolute 0.0 E9/L Normal 0.0-0.5 [facility] Comment on above: Performed By: #### 2 [id number] #### [facility] [address] [place] [address] Eosinophils/100 WBC (Bld) 0.1 % Normal 0.0-8.0 [facility] Comment on above: Performed By: #### 2 [id number] #### [facility] [address] [place] [address] Erythrocyte distribution width (RBC) [Ratio] 15.7 % High 10.9-14.2 [facility] Comment on above: Performed By: #### 2 [id number] #### [facility] [address] [place] [address] Hematocrit (Bld) [Volume fraction] 40.0 % Normal 34.0-46.0 [facility] Comment on above: Performed By: #### 2 [id number] #### [facility] [address] [place] [address] Hemoglobin (Bld) [Mass/Vol] 13.7 g/dL Normal 12.0-16.0 [facility] Comment on above: Performed By: #### 2 [id number] #### [facility] [address] [place] [address] Lymph Absolute 0.4 E9/L Low 1.0-4.0 [facility] Comment on above: Performed By: #### 2 [id number] #### [facility] [address] [place] [address] Lymphocytes/100 WBC (Bld) 4.8 % Low 14.0-50.0 [facility] Comment on above: Performed By: #### 2 [id number] #### [facility] [address] [place] [address] MCH (RBC) [Entitic mass] 31.4 pg Normal 27.0-34.0 [facility] Comment on above: Performed By: #### 2 [id number] #### [facility] [address] [place] [address] MCHC (RBC) [Mass/Vol] 34.3 g/dL Normal 31.4-36.0 [facility] Comment on above: Performed By: #### 2 [id number] #### [facility] Laboratory [address] [place] [address] MCV (RBC) [Entitic vol] 91.7 fL Normal 80.0-100.0 [facility] Comment on above: Performed By: #### 2 [id number] #### [facility] [address] [place] [address] [place] Absolute 0.1 E9/L Low 0.2-1.0 [facility] Comment on above: Performed By: #### 2 [id number] #### [facility] [address] [place] [address] Monocytes/100 WBC (Bld) 1.8 % Low 4.0-14.0 [facility] Comment on above: Performed By: #### 2 [id number] #### [facility] [address] [place] [address] Neutro Absolute 7.4 E9/L Normal 2.0-7.5 [facility] Comment on above: Performed By: #### 2 [id number] #### [facility] [address] [place] [address] Neutro Auto 91.7 % High 36.0-75.0 [facility] Comment on above: Performed By: #### 2 [id number] #### [facility] [address] [place] [address] Platelet 274.0 E9/L Normal 150.0-500.0 [facility] Comment on above: Performed By: #### 2 [id number] #### [facility] [address] [place] [address] Platelet mean volume (Bld) [Entitic vol] 7.4 fL Normal 6.4-10.8 [facility] Comment on above: Performed By: #### 2 [id number] #### [facility] [address] [place] [address] RBC 4.4 E12/L Normal 4.3-5.9 [facility] Comment on above: Performed By: #### 2 525251 #### [facility] [address] [place] [address] WBC 8.1 E9/L Normal 4.0-11.0 [facility] Comment on above: Performed By: #### 2 [id number] #### [facility] [address] [place] [address] CHEMISTRYOrdered By: Lab ROP User on 12-28-2024 Glucose [Mass/Vol] 217 mg/dL High 55 - 99 mg/dL [facility] POC Subsection Comment on above: Result Comment: Loraine peralta RN/ POC Username HAYDEN MAYERS Invalid Interpretation Code [facility] POC Subsection Sodium [Moles/Vol] [id number] mmol/L Invalid Interpretation Code [facility] POC Subsection Sodium [Moles/Vol] [id number] mmol/L Invalid Interpretation Code [facility] POC Subsection CHEMISTRYOrdered By: SYSTEM SYSTEM on [...] 12-28-2024 Albumin [Mass/Vol] 4.5 g/dL Normal 3.3-5.0 [facility] Comment on above: Performed By: #### 2 [id number] #### [facility] [address] [place] [address] Albumin/Globulin [Mass ratio] 1.4 {ratio} Normal 1.1-2.2 [facility] Comment on above: Performed By: #### 2 [id number] #### [facility] [address] [place] [address] Alk Phos 62 Int._Unit/L Normal 21-98 [facility] Comment on above: Performed By: #### 2 [id number] #### [facility] [address] [place] [address] ALT 24 Int._Unit/L Normal 6-46 [facility] Comment on above: Performed By: #### 2 [id number] #### [facility] [address] [facility] [place] [address] Anion gap [Moles/Vol] 14 mmol/L Normal 6-16 [facility] Comment on above: Performed By: #### 2 [id number] #### [facility] [address] [place] [address] AST 20 Int._Unit/L Normal 5-43 [facility] Comment on above: Performed By: #### 2 [id number] #### [facility] [address] [place] [address] Bili Total 0.4 mg/dL Normal 0.0-1.1 [facility] Comment on above: Performed By: #### 2 658778 #### [facility] [address] [place] [address] BUN/Creat Ratio 20 No Units Normal 10-20 [facility] Comment on above: Performed By: #### 2 067516 #### [facility] [address] [place] [address] Calcium [Mass/Vol] 9.2 mg/dL Normal 8.9-11.1 [facility] Comment on above: Performed By: #### 2 555186 #### [facility] [address] [place] [address] Chloride [Moles/Vol] 97 mmol/L Low 101-111 [facility] Comment on above: Performed By: #### 2 655594 #### [facility] [address] [place] [address] CO2 [Moles/Vol] 28 mmol/L Normal 21-31 [facility] Comment on above: Performed By: #### 2 907900 #### [facility] [address] [place] [address] Creatinine [Mass/Vol] 0.7 mg/dL Normal 0.5-1.3 [facility] Comment on above: Performed By: #### 2 852586 #### [facility] [address] [place] [address] Globulin (S) [Mass/Vol] 3.3 g/dL Normal 1.4-4.0 [facility] Comment on above: Performed By: #### 2 [id number] #### [facility] [address] [place] [address] Glucose [Mass/Vol] 157 mg/dL Normal 55-199 [facility] Comment on above: Performed By: #### 2 265029 #### [facility] [address] [place] [address] Potassium [Moles/Vol] 4.0 mmol/L Normal 3.5-5.3 [facility] Comment on above: Performed By: #### 2 088236 #### [facility] [address] [place] [address] Protein [Mass/Vol] 7.8 g/dL Normal 6.0-7.8 [facility] Comment on above: Performed By: #### 2 [id number] #### [facility] [address] [place] [address] Sodium [Moles/Vol] 135 mmol/L Normal 135-145 [facility] Comment on above: Performed By: #### 2 067221 #### [facility] [address] [place] [address] Urea nitrogen [Mass/Vol] 14 mg/dL Normal 5-21 [facility] Comment on above: Performed By: #### 2 240972 #### [facility] [address] [place] [address] Capillary Glucose POCon 12-03 Glucose [Mass/Vol] 217 mg/dL High 55-99 [facility] Comment on above: Result Comment: Loraine GODOY Performed By: #### 2 [id number] #### [facility] [address] [place] [address] Glucose [Mass/Vol] 193 mg/dL High 55-99 [facility] Comment on above: Result Comment: Loraine GODOY Performed By: #### 2 [id number] #### [facility] [address] [place] [address] Glucose [Mass/Vol] 162 mg/dL High 55-99 [facility] Comment on above: Result Comment: Loraine peralta RN/ Performed By: #### 2 [id number] #### [facility] [address] [place] [address] Glucose [Mass/Vol] 154 mg/dL High 55-99 [facility] Comment on above: Result Comment: Loraine GODOY Performed By: #### 2 [id number] #### [facility] [address] [place] [address] Coding Queryon 12-28-2024 Coding Query Coding Query From: Catarino Wood RN To: Abisai Kuar III, DO; Sent: 12/28/2024 06:54:34 EDT ! [...] desired or expected. Thank you!catarino [phone] Normal [facility] HEMATOLOGYOrdered By: SYSTEM SYSTEM on 12-28-2024 Basophils/100 [...] Janak e Manageron 12-28-2024 Interdisciplinary Note - Can Closing 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 Interdisciplinary Note - Can Closing 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 CRM to room 321 Patient is awake, [...] huddle with hospitalists ECHO today Possible weekend [facility] Comment on above: Result Comment: Elec tronically Signed By: Clara Gold\.br\Date and Time Signed: 12/28/24 12:02 EDT Interdisciplinary Note - Can Closing 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 Interdisciplinary Note - Can Closing 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 CRM to room 321 Patient is awake, [...] updates at 10 AM huddle with hospitalists [facility] Comment on above: Result Comment: Elec [...] MD Transcribed by: KARSTEN Technologist: RENATA Normal [facility] eGFRon 12-28-2024 eGFR 98 mL/min/1.73 m2 Normal >=59 [facility] Comment on above: Performed By: #### 1 [id number] #### [facility] [address] [place] [address] BMPon 12-27-2024 Anion gap [Moles/Vol] 12 mmol/L Normal 6-16 [facility] Comment on above: Performed By: #### 2 665419 #### [facility] [address] [place] [address] BUN/Creat Ratio 18 No Units Normal 10-20 [facility] Comment on above: Performed By: #### 2 255287 #### [facility] [address] [place] [address] Calcium [Mass/Vol] 8.9 mg/dL Normal 8.9-11.1 [facility] Comment on above: Performed By: #### 2 124492 #### [facility] [address] [place] [address] Chloride [Moles/Vol] 100 mmol/L Low 101-111 [facility] Comment on above: Performed By: #### 2 570747 #### [facility] [address] [place] [address] CO2 [Moles/Vol] 27 mmol/L Normal 21-31 [facility] Comment on above: Performed By: #### 2 470787 #### [facility] [address] [place] [address] Creatinine [Mass/Vol] 0.8 mg/dL Normal 0.5-1.3 [facility] Comment on above: Performed By: #### 2 463513 #### [facility] [address] [place] [address] Glucose [Mass/Vol] 147 mg/dL Normal 55-199 [facility] Comment on above: Performed By: #### 2 906934 #### [facility] [address] [place] [address] Potassium [Moles/Vol] 3.9 mmol/L Normal 3.5-5.3 [facility] Comment on above: Performed By: #### 2 413551 #### [facility] [address] [place] [address] Sodium [Moles/Vol] 135 mmol/L Normal 135-145 [facility] Comment on above: Performed By: #### 2 515357 #### [facility] [address] [place] [address] Urea nitrogen [Mass/Vol] 14 mg/dL Normal 5-21 [facility] Comment on above: Performed By: #### 2 874759 #### [facility] [address] [place] [address] BNPon 12-27-2024 Int Ctr BNP Pass Normal [facility] Comment on above: Performed By: #### 1 [id number] #### [facility] [address] [place] [address] Natriuretic peptide B (Bld) [Mass/Vol] 20 pg/mL Normal 5-80 [facility] Comment on above: Performed By: #### 1 [id number] #### [facility] Laboratory [address] [place] [address] CBC w/ Auto Diffon 5 Basophil Absolute 0.1 E9/L Normal 0.0-0.2 [facility] Comment on above: Performed By: #### 2 194946 #### [facility] [address] [place] [address] Basophils/100 WBC (Bld) 0.8 % Normal 0.0-2.0 [facility] Comment on above: Performed By: #### 2 [id number] #### [facility] [address] [place] [address] Eos Absolute 0.1 E9/L Normal 0.0-0.5 [facility] Comment on above: Performed By: #### 2 638881 #### [facility] [address] [place] [address] Eosinophils/100 WBC (Bld) 1.0 % Normal 0.0-8.0 [facility] Comment on above: Performed By: #### 2 [id number] #### [facility] [address] [place] [address] Erythrocyte distribution width (RBC) [Ratio] 15.6 % High 10.9-14.2 [facility] Comment on above: Performed By: #### 2 100730 #### [facility] [address] [place] [address] Hematocrit (Bld) [Volume fraction] 37.2 % Normal 34.0-46.0 [facility] Comment on above: Performed By: #### 2 [id number] #### [facility] [address] [place] [address] Hemoglobin (Bld) [Mass/Vol] 13.2 g/dL Normal 12.0-16.0 [facility] Comment on above: Performed By: #### 2 362237 #### [facility] [address] [place] [address] Lymph Absolute 0.9 E9/L Low 1.0-4.0 [facility] Comment on above: Performed By: #### 2 477110 #### [facility] [address] [place] [address] Lymphocytes/100 WBC (Bld) 12.1 % Low 14.0-50.0 [facility] Comment on above: Performed By: #### 2 [id number] #### [facility] [address] [place] [address] MCH (RBC) [Entitic mass] 32.2 pg Normal 27.0-34.0 [facility] Comment on above: Performed By: #### 2 [id number] #### [facility] [address] [place] [address] MCHC (RBC) [Mass/Vol] 35.5 g/dL Normal 31.4-36.0 [facility] Comment on above: Performed By: #### 2 744740 #### [facility] [address] [place] [address] MCV (RBC) [Entitic vol] 90.8 fL Normal 80.0-100.0 [facility] Comment on above: Performed By: #### 2 392995 #### [facility] [address] [place] [address] [place] Absolute 0.4 E9/L Normal 0.2-1.0 [facility] Comment on above: Performed By: #### 2 157266 #### [facility] [address] [place] [address] Monocytes/100 WBC (Bld) 5.3 % Normal 4.0-14.0 [facility] Comment on above: Performed By: #### 2 850586 #### [facility] [address] [place] [address] Neutro Absolute 5.8 E9/L Normal 2.0-7.5 [facility] Comment on above: Performed By: #### 2 170404 #### [facility] [address] [place] [address] Neutro Auto 80.8 % High 36.0-75.0 [facility] Comment on above: Performed By: #### 2 963092 #### [facility] [address] [place] [address] Platelet 240.0 E9/L Normal 150.0-500.0 [facility] Comment on above: Performed By: #### 2 [id number] #### [facility] [address] [place] [address] Platelet mean volume (Bld) [Entitic vol] 7.2 fL Normal 6.4-10.8 [facility] Comment on above: Performed By: #### 2 146275 #### [facility] [address] [place] [address] RBC 4.1 E12/L Low 4.3-5.9 [facility] Comment on above: Performed By: #### 2 619494 #### [facility] [address] [place] [address] WBC 7.2 E9/L Normal 4.0-11.0 [facility] Comment on above: Performed By: #### 2 958277 #### [facility] [address] [place] [address] CHEMISTRYOrdered By: SYSTEM SYSTEM on 12-27-2024 Troponin [...] High Sensitivity Troponin I Instructions For Use, [employer], February 2018) Troponin HS 28.80 pg/mL High 10.10 - 27.10 pg/mL [facility] Comment on above: Interpretive Data: T he 95% CI (Confidence Interval) PPV (Positive Predictive Value) for myocardial infarction in females is 38 pg/mL, in males 51 pg/mL. The results should be used in conjunction with clinical conditions of myocardial infarction. (Access High Sensitivity Troponin I Instructions For Use, [employer], February 2018) Troponin HS 28.80 pg/mL High 10.10 - 27.10 pg/mL [facility] Comment on above: Interpretive Data: T he 95% CI (Confidence Interval) PPV (Positive Predictive Value) for myocardial infarction in females is 38 pg/mL, in males 51 pg/mL. The results should be used in conjunction with clinical conditions of myocardial infarction. (Access High Sensitivity Troponin I Instructions For Use, [employer], February 2018) Albumin [Mass/Vol] 4.3 g/dL Normal [...] 20 pg/mL Normal 5 - 80 pg/mL [facility] COAGULATIONOrdered By: Liv John on 12-27-2024 aPTT Coag (PPP) [Time] 31.4 s Normal 25.1 - 36.5 second(s) [facility] Auto Coag Comment on above: Interpretive Data: [...] the same coagulation reagent and instrumentation as [facility]. Currently there are no coagulation studies available worldwide for children to 14 days, and no normal ranges. Heparin therapeutic range (represented by Anti-Factor Xa activity of 0.2 - 0.4 U/mL) corresponds to PTT of 56.6 - 109.0 sec. INR Coag (PPP) [Relative time] 0.96 {INR} Invalid Interpretation Code [facility] Auto Coag Comment on above: Interpretive Data: I NR results are specifically intended to assess patients stabilized on long-term Anticoagulation therapy suggested INR s Less Intensive Anticoagulation 2.0 3.0 Conventional Range 3.0 4.5 PT Coag (PPP) [Time] 10.7 s Normal 9.4 - 1 2.5 second(s) [facility] Auto Coag Comment on above: Interpretive Data: [...] the same coagulation reagent and instrumentation as [facility]. Currently there are no coagulation studies available worldwide for children to 14 days, and no normal ranges. Capillary Glucose POCon 12-03 Glucose [Mass/Vol] 157 mg/dL High 55-99 [facility] Comment on above: Result Comment: Loraine GODOY Performed By: #### 2 [id number] #### [facility] [address] [place] [address] Glucose [Mass/Vol] 87 mg/dL Normal 55-99 [facility] Comment on above: Result Comment: Loraine GODOY Performed By: #### 2 [id number] #### [facility] Laboratory [address] [place] [address] ED Clinical Summaryon 2024 ED Clinical Summary ED Clinical Summary [address] [address] ED Clinical Summary Person Information Name: CARMEN BLEDSO[facility]Brennan Age: 64 Years : 1960 Sex: Female Language: Bhutanese PCP: Yocasta SMITH, WARDROBE CUSTODIAN-CHART COLLECTORMyron Marital Status: Single Visit Id: Visit Reason: Wheezing; Shortness of breath; Edema; cp, sob, swelled feet and legs Speciality: Acuity: 2 Enc Type: Inpatient Med Service: Medical Arrival: 12/27/2024 10:31:36 Discharge: LOS: 000 04:47 Checkin: 12/27/2024 10:31:36 Checkout: 12/27/2024 15:18:27 Dispo Type: Admitted as IP to this [facility] EVENTS: Event Name Event Status Request [...] 12/27/2024 14:13:03 [place] Request 12/27/2024 14:13:45 AD[address]: [facility] [place] [id number] PHYS DOC NOTES: MEDICAL INFORMATION: Prescriptions Given: [...] Misc Pr (more content not included)... Normal [facility] ED Note-Physicianon 12-28-19 ED Note-Physician ED Note-Physician [...] EDT, STAT, (more content not included)... Normal [facility] Comment on above: Result Comment: Elec tronically Signed By: Mendez Spain, Whit Thurman\.br\Date and Time Signed: 12/27/24 13:59 EDT ED Patient Education Noteon 12-27-2024 ED Patient Education Note ED Patient Education Note Normal [facility] ED Patient Summaryon 025 ED Patient Summary ED Patient Summary [place] [id number] Patient Discharge Instructions Person Information Name: CARMEN [...] 50.0-59.9, adult Primary Care Physician: Yocasta MSN, WARDROBE CUSTODIAN-CHART COLLECTOR, Myron Hamilton Provider Information Primary Provider: Whit Simms M.D. [employer] Salesperson:None The exam and treatment you received in the Emergency Department were for an urgent problem and are not intended as complete care. It is important that you follow up with a doctor, nurse practitioner, or physician???s licensed sales assistant for ongoing care. If your symptoms [...] opioids can be used to help relieve jbigwrog-ln-dwaeav pain and are often prescribed following a [...] Administration (www (more content not included)... Normal [facility] HEMATOLOGYOrdered By: SYSTEM SYSTEM on 12-27-2024 Basophils/100 [...] 12-27-2024 Albumin [Mass/Vol] 4.3 g/dL Normal 3.3-5.0 [facility] Comment on above: Performed By: #### 2 [id number] #### [facility] Laboratory [address] [place] [address] Albumin/Globulin [Mass ratio] 1.4 {ratio} Normal 1.1-2.2 [facility] Comment on above: Performed By: #### 2 [id number] #### [facility] [address] [place] [address] Alk Phos 62 Int._Unit/L Normal 21-98 [facility] Comment on above: Performed By: #### 2 [id number] #### [facility] [address] [place] [address] ALT 23 Int._Unit/L Normal 6-46 [facility] Comment on above: Performed By: #### 2 160241 #### [facility] [address] [place] [address] AST 21 Int._Unit/L Normal 5-43 [facility] Comment on above: Performed By: #### 2 [id number] #### [facility] [address] [place] [address] Bili Direct 0.1 mg/dL Normal 0.0-0.4 [facility] Comment on above: Performed By: #### 2 [id number] #### [facility] [address] [place] [address] Bili Indirect 0.3 mg/dL Normal 0.1-0.9 [facility] Comment on above: Performed By: #### 2 [id number] #### [facility] [address] [place] [address] Bili Total 0.4 mg/dL Normal 0.0-1.1 [facility] Comment on above: Performed By: #### 2 [id number] #### [facility] [address] [place] [address] Globulin (S) [Mass/Vol] 3.0 g/dL Normal 1.4-4.0 [facility] Comment on above: Performed By: #### 2 418225 #### [facility] [address] [place] [address] Protein [Mass/Vol] 7.3 g/dL Normal 6.0-7.8 [facility] Comment on above: Performed By: #### 2 [id number] #### [facility] [address] [place] [address] Interdisciplinary Note - Janak e Manageron 12-27-2024 Interdisciplinary Note - Can Closing 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 Interdisciplinary Note - Can Closing 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 CRM did chart review Patient was just admitted this afternoon CRM will round for DC needs on 12/28 Normal [facility] Comment on above: Result Comment: Elec tronically Signed By: Clara Gold\.br\Date and Time Signed: 12/27/24 16:41 EDT Lactic Acidon 12-27-2024 Lactic Acid Lvl 1.2 mmol/L Normal 0.5-2.2 [facility] Comment on above: Performed By: #### 2 [id number] #### [facility] [facility] [address] [place] [address] No Panel InformationOrdered By: [facility] on 12-27-2024 Blood Culture Charcoal No growth at 2 days. Final to follow at 7 days. [facility] Blood Culture Charcoal No growth at 2 days. Final to follow at 7 days. [facility] PT & PTTon 12-27-2024 INR Coag (PPP) [Relative time] 0.96 {INR} Invalid Interpretation Code [facility] Comment on above: Result Comment: INR results are specifically intended to assess patients stabilized on long-term Anticoagulation therapy suggested INR???s ???Less Intensive Anticoagulation??? 2.0 ??? 3.0 Conventional Range 3.0 ??? 4.5 Performed By: #### 1 [id number] #### [facility] [address] [place] [address] PT 10.7 second(s) Normal 9.4-12.5 [facility] Comment on above: Result Comment: 15 [...] the same coagulation reagent and instrumentation as [facility]. Currently there are no coagulation studies available worldwide for children to 14 days, and no normal ranges. Performed By: #### 1 [id number] #### [facility] [address] [place] [address] PTT 31.4 second(s) Normal 25.1-36.5 [facility] Comment on above: Result Comment: Para [...] the same coagulation reagent and instrumentation as [facility]. Currently there are no coagulation studies available worldwide for children to 14 days, and no normal ranges. Heparin therapeutic range (represented by Anti-Factor Xa activity of 0.2 - 0.4 U/mL) corresponds to PTT of 56.6 - 109.0 sec. Performed By: #### 1 [id number] #### [facility] [address] [place] [address] Procalcitoninon 12-27-2024 Procalcitonin .08 ng/mL Normal .00-.50 [facility] Comment on above: Result Comment: <0.5 [...] to 24 hours. Performed By: #### 2 [id number] #### [facility] [address] [place] [address] Respiratory Panel by PCRon 0 12-27-2024 Adenovirus Not detected Normal [facility] Comment on above: Result Comment: Test ing was performed using nucleic acid amplification including Influenza A, Influenza A H1, Influenza A H3, Influenza B, RSV A, RSV B, Adenovirus, Human Metapneumovirus, Parainfluenza 1,2,3, and 4, Rhinovirus, Bordetella parapertussis/bronchiseptica, Bordetella holmesii, and Bordetella pertussis. Performed By: #### 1 [id number] #### [facility] [address] [place] [address] B. holmesii Not detected Normal [facility] Comment on above: Performed By: #### 1 [id number] #### [facility] [address] [place] [address] B. parapertussis/bronch iseptica Not detected Normal Not Detected [facility] Comment on above: Performed By: #### 1 [id number] #### [facility] [address] [place] [address] B. pertussis Not detected Normal Not Detected [facility] Comment on above: Performed By: #### 1 [id number] #### [facility] [address] [place] [address] Human Metapneumovirus Not detected Normal [facility] Comment on above: Result Comment: This test result should be correlated with clinical presentations and medical history by a healthcare provider to determine its clinical significance. Performed By: #### 1 [id number] #### [facility] [address] [place] [address] Influenza A Not detected Normal [facility] Comment on above: Performed By: #### 1 [id number] #### [facility] [address] [place] [address] Influenza A (subtype H1) Not detected Normal [facility] Comment on above: Performed By: #### 1 [id number] #### [facility] [address] [place] [address] Influenza A (subtype H3) Not detected Normal [facility] Comment on above: Performed By: #### 1 [id number] #### [facility] [address] [place] [address] Influenza B Not detected Normal [facility] Comment on above: Performed By: #### 1 [id number] #### [facility] [address] [place] [address] Parainfluenza 1 Not detected Normal [facility] Comment on above: Performed By: #### 1 [id number] #### [facility] [address] [place] [address] Parainfluenza 2 Not detected Normal [facility] Comment on above: Performed By: #### 1 [id number] #### [facility] [address] [place] [address] Parainfluenza 3 Not detected Normal [facility] Comment on above: Performed By: #### 1 [id number] #### [facility] [address] [place] [address] Parainfluenza 4 Not detected Normal [facility] Comment on above: Performed By: #### 1 [id number] #### [facility] [address] [place] [address] Resp Panel Intrl QC Pass Normal [facility] Comment on above: Performed By: #### 1 [id number] #### [facility] [address] [place] [address] Rhinovirus Not detected Normal [facility] Comment on above: Performed By: #### 1 [id number] #### [facility] [address] [place] [address] RSV A Not detected Normal [facility] Comment on above: Performed By: #### 1 [id number] #### [facility] [address] [place] [address] RSV B Not detected Normal [facility] Comment on above: Performed By: #### 1 [id number] #### [facility] [address] [place] [address] TSH With T4fr Reflexon 12-27 TSH Qn 2.71 m[IU]/L Normal 0.34-5.60 [facility] Comment on above: Performed By: #### 1 [id number] #### [facility] [address] [place] [address] Troponin 0 Hr.on 12-27-2024 Troponin HS 32.40 pg/mL High 10.10-27.10 [facility] Comment on above: Result Comment: The 95% CI (Confidence Interval) PPV (Positive Predictive Value) for myocardial infarction in females is 38 pg/mL, in males 51 pg/mL. The results should be used in conjunction with clinical conditions of myocardial infarction. (Access High Sensitivity Troponin I Instructions For Use, [employer], February 2018) Performed By: #### 1 [id number] #### [facility] [address] [place] [address] Troponin 1 Hr.on 12-27-2024 Troponin HS 28.80 pg/mL High 10.10-27.10 [facility] Comment on above: Order Comment: 1143 Result Comment: The 95% CI (Confidence Interval) PPV (Positive Predictive Value) for myocardial infarction in females is 38 pg/mL, in males 51 pg/mL. The results should be used in conjunction with clinical conditions of myocardial infarction. (Access High Sensitivity Troponin I Instructions For Use, [employer], February 2018) Performed By: #### 1 [id number] #### [facility] [address] [place] [address] Troponin 3 Hr.on 12-27-2024 Troponin HS 28.80 pg/mL High 10.10-27.10 [facility] Comment on above: Result Comment: The 95% CI (Confidence Interval) PPV (Positive Predictive Value) for myocardial infarction in females is 38 pg/mL, in males 51 pg/mL. The results should be used in conjunction with clinical conditions of myocardial infarction. (Access High Sensitivity Troponin I Instructions For Use, [employer], February 2018) Performed By: #### 1 [id number] #### [facility] [address] [place] [address] Troponin 6 Hr.on 12-27-2024 Troponin HS 27.70 pg/mL High 10.10-27.10 [facility] Comment on above: Result Comment: The 95% CI (Confidence Interval) PPV (Positive Predictive Value) for myocardial infarction in females is 38 pg/mL, in males 51 pg/mL. The results should be used in conjunction with clinical conditions of myocardial infarction. (Access High Sensitivity Troponin I Instructions For Use, [employer], February 2018) Performed By: #### 1 [id number] #### [facility] [address] [place] [address] XR Chest Single Viewon 12-27 XR Chest [...] MD Transcribed by: KARSTEN Technologist: DEDRICK Normal [facility] eGFRon 12-27-2024 eGFR 83 mL/min/1.73 m2 Normal >=59 [facility] Comment on above: Performed By: #### 1 [id number] #### [facility] [address] [place] [address] Ambulatory Visit Summaryon 0 12-19-2024 Ambulatory Visit [...] With: Rick Hernandez PA-C Where: [facility] Tuesday 1:40 PM EDT With: Yocasta SMITH, Myron ESPINO Where: [place] [address] [place] [address]- You Need to Schedule the Following Appointments Follow Up with Yocasta MSN, WARDROBE CUSTODIAN-CHART COLLECTOR, Myron Hamilton When: In 2 weeks Comments: chronic care Where: [address] [place] [phone] You Need to Complete the Following Microalbumin [...] See instru (more content not included)... Normal [facility] CHEMISTRYOrdered By: SYSTEM SYSTEM on 12-19-2024 Albumin [...] (Bld) [Mass fraction] 6.1 % High <=5.9% [facility] ChemAutoSS CMPon 12-19-2024 Albumin [Mass/Vol] 4.4 g/dL Normal 3.3-5.0 [facility] Comment on above: Performed By: #### 2 [id number] #### [facility] [address] [place] [address] Albumin/Globulin [Mass ratio] 1.5 {ratio} Normal 1.1-2.2 [facility] Comment on above: Performed By: #### 2 [id number] #### [facility] [address] [place] [address] Alk Phos 60 Int._Unit/L Normal 21-98 [facility] Comment on above: Performed By: #### 2 [id number] #### [facility] [address] [place] [address] ALT 31 Int._Unit/L Normal 6-46 [facility] Comment on above: Performed By: #### 2 [id number] #### [facility] [address] [place] [address] Anion gap [Moles/Vol] 13 mmol/L Normal 6-16 [facility] Comment on above: Performed By: #### 2 [id number] #### [facility] [address] [place] [address] AST 29 Int._Unit/L Normal 5-43 [facility] Comment on above: Performed By: #### 2 [id number] #### [facility] [address] [place] [address] Bili Total 0.4 mg/dL Normal 0.0-1.1 [facility] Comment on above: Performed By: #### 2 [id number] #### [facility] [address] [place] [address] BUN/Creat Ratio 11 No Units Normal 10-20 [facility] Comment on above: Performed By: #### 2 [id number] #### [facility] [address] [place] [address] Calcium [Mass/Vol] 9.4 mg/dL Normal 8.9-11.1 [facility] Comment on above: Performed By: #### 2 [id number] #### [facility] [address] [place] [address] Chloride [Moles/Vol] 95 mmol/L Low 101-111 [facility] Comment on above: Performed By: #### 2 [id number] #### [facility] [address] [place] [address] CO2 [Moles/Vol] 30 mmol/L Normal 21-31 [facility] Comment on above: Performed By: #### 2 [id number] #### [facility] [address] [place] [address] Creatinine [Mass/Vol] 0.7 mg/dL Normal 0.5-1.3 [facility] Comment on above: Performed By: #### 2 [id number] #### [facility] [address] [place] [address] Globulin (S) [Mass/Vol] 2.9 g/dL Normal 1.4-4.0 [facility] Comment on above: Performed By: #### 2 [id number] #### [facility] [address] [place] [address] Glucose [Mass/Vol] 88 mg/dL Normal 55-199 [facility] Comment on above: Performed By: #### 2 [id number] #### [facility] [address] [place] [address] Potassium [Moles/Vol] 4.0 mmol/L Normal 3.5-5.3 [facility] Comment on above: Performed By: #### 2 [id number] #### [facility] [address] [place] [address] Protein [Mass/Vol] 7.3 g/dL Normal 6.0-7.8 [facility] Comment on above: Performed By: #### 2 [id number] #### [facility] [address] [place] [address] Sodium [Moles/Vol] 134 mmol/L Low 135-145 [facility] Comment on above: Performed By: #### 2 [id number] #### [facility] [address] [place] [address] Urea nitrogen [Mass/Vol] 8 mg/dL Normal 5-21 [facility] Comment on above: Performed By: #### 2 [id number] #### [facility] [address] [place] [address] Family Medicine Office/Clini c Noteon 12-19-2024 Family [...] pressure. Impaired diastolic relaxation. List of Providers: Oracle Manager: Rick Hernandez PA-C Montessori Toddler Teacher: Dr Phillip Orthopaedics: Dr Martinez LABS Cr/eGFR: [...] High (07/13/24 11:18:00) Future Appointments [facility]. Date: 01/01/2025 2:00 PM Scheduled Provider: [place], [address] Phone: [phone] Fax: [phone] The patient is presenting with shortness of [...] of l (more content not included)... Normal [facility] Comment on above: Result Comment: Elec tronically Signed By: Yocasta SMITH, WARDROBE CUSTODIAN- Myron VILLATORO\.br\Date and Time Signed: 12/19/24 16:05 EDT [id number] 12-19-2024 HbA1c (Bld) [Mass fraction] 6.1 % High <=5.9 [facility] Comment on above: Performed By: #### 7 [id number] #### [facility] [address] [place] [address] XR Chest 2 Viewson XR Chest 2 [...] MD Transcribed by: KARSTEN Technologist: KORIN Normal [facility] eGFRon 12-19-2024 eGFR 98 mL/min/1.73 m2 Normal >=59 [facility] Comment on above: Performed By: #### 1 [id number] #### [facility] [address] [place] [address] Ambulatory Visit Summaryon 0 11-27-2024 Ambulatory Visit Summary Ambulatory Visit Summary CARMEN BLEDSOE :1960 Visit Date:11/27/2024 Ambulatory Visit Instructions Your Diagnosis Type 2 diabetes mellitus with morbid obesity Bilateral leg edema Shortness of breath on exertion Alcohol problem drinking Cigarette smoker Morbid obesity, Morbid (severe) obesity due to excess calories BMI 50.0-59.9, adult Your Care Team Attending Physician - Yocasta MSN, WARDROBE CUSTODIAN-Myron VILLATORO Primary Care Physician - Yocasta MSN, WARDROBE CUSTODIAN-Myron VILLATORO This Is Your Medications List albuterol [...] EDT With: Yocasta SMITH, Myron ESPINO Where: [place] [place] [address]- Tuesday 2:00 PM EDT With: Rick Hernandez PA-C Where: [facility] You Need to Schedule the Following Appointments Follow Up with Yocasta SMITH, Myron ESPINO When: Only if needed Where: [address] [place] [phone] Medications What How Much When Why Instructions New albuterol (Albuterol (Eqv-Ventolin HFA) 90 mcg/ inh inhalation aerosol) 2 Puffs Inhalation Every 6 hours as needed for Shortness of breath or wheezing Refills: 3 Pickup at [facility] #78849 New fluticasone-salmetero l (Advair Diskus 250 mcg-50 mcg inhalation powder) 1 Puffs Inhalation 2 times a day Duration: 30 Days Pickup at [facility] #44365 Unchanged glipiZIDE (glipiZIDE 2.5 mg ER Tab) 1 Tablets By Mouth Every day Pickup at [facility] #77113 Unchanged rosuvastatin (Crestor 40 mg Tab) 1 Tablets By Mouth Every day Mixed hyperlipidemia Pickup at [facility]15368 Unchanged aripiprazole (Abilify 5 mg Tab) 1 [...] Contact prescr (more content not included)... Normal [facility] Family Medicine Office/Clini c Noteon 11-27-2024 Family [...] medical options pending insurance approval for the [facility]. Preparation for potential bariatric intervention continues [...] again. Will continue following up with the senior ssis developer. Ordered: Current tobacco smoker 1034F Depression Screening [...] that time she is already seeing the highway engineering teacher and they have ordered the PFT if [...] Alcohol u (more content not included)... Normal [facility] Comment on above: Result Comment: Elec tronically Signed By: Yocasta MSN, WARDROBE CUSTODIAN- CHART COLLECTOR, Myron Hamilton\.br\Date and Time Signed: 11/27/24 17:35 [...] Care Team Attending Physician - Yocasta MSN, WARDROBE CUSTODIAN-Myron VILLATORO Primary Care Physician - Yocasta SMITH, WARDROBE CUSTODIAN-Myron VILLATORO This Is Your Medications List Misc [...] With: Rick Hernandez PA-C Where: [facility] Tuesday 12:40 PM EDT With: Yocasta SMITH, DARLEEN-IRVING, Myron Hamilton Where: [facility] [address] [id number]- You Need to Schedule the Following Appointments Follow Up with Yocasta SMITH, DARLEEN-IRVING, Myron Hamilton When: In 3 months Comments: chronic care Where: [address] [place] [phone] Someone Will Contact You Regarding These Appointments [facility] External Ambulatory Referral, Surgery, Kevan Bariatric surgery, [...] pantoprazole (Pantopr (more content not included)... Normal [facility] CHEMISTRYOrdered By: SYSTEM SYSTEM on 09-12-2024 Albumin [...] 09-12-2024 Albumin [Mass/Vol] 4.3 g/dL Normal 3.3-5.0 [facility] Comment on above: Performed By: #### 2 [id number] #### [facility] [address] [place] [address] Albumin/Globulin (S) [Mass conc ratio] 1.5 Normal 1.1-2.2 [facility] Comment on above: Performed By: #### 2 [id number] #### [facility] [address] [place] [address] ALP [Catalytic activity/Vol] 54 Int._Unit/L Normal 21-98 [facility] Comment on above: Performed By: #### 2 [id number] #### [facility] [address] [place] [address] ALT No additional P-5'-P [Catalytic activity/Vol] 18 Int._Unit/L Normal 6-46 [facility] Comment on above: Performed By: #### 2 [id number] #### [facility] [address] [place] [address] Anion gap [Moles/Vol] 11 mmol/L Normal 6-16 [facility] Comment on above: Performed By: #### 2 [id number] #### [facility] [address] [place] [address] AST [Catalytic activity/Vol] 18 Int._Unit/L Normal 5-43 [facility] Comment on above: Performed By: #### 2 [id number] #### [facility] [address] [place] [address] Bilirubin [Mass/Vol] 0.4 mg/dL Normal 0.0-1.1 [facility] Comment on above: Performed By: #### 2 [id number] #### [facility] [address] [place] [address] Calcium [Mass/Vol] 9.1 mg/dL Normal 8.9-11.1 [facility] Comment on above: Performed By: #### 2 [id number] #### [facility] [address] [place] [address] Chloride [Moles/Vol] 98 mmol/L Low 101-111 [facility] Comment on above: Performed By: #### 2 [id number] #### [facility] [address] [place] [address] CO2 [Moles/Vol] 27 mmol/L Normal 21-31 [facility] Comment on above: Performed By: #### 2 [id number] #### [facility] [address] [place] [address] Creatinine [Mass/Vol] 0.7 mg/dL Normal 0.5-1.3 [facility] Comment on above: Performed By: #### 2 [id number] #### [facility] [address] [place] [address] Globulin (S) [Mass/Vol] 2.8 g/dL Normal 1.4-4.0 [facility] Comment on above: Performed By: #### 2 [id number] #### [facility] [address] [place] [address] Glucose [Mass/Vol] 95 mg/dL Normal 55-199 [facility] Comment on above: Performed By: #### 2 105606 #### [facility] [address] [place] [address] Potassium [Moles/Vol] 4.0 mmol/L Normal 3.5-5.3 [facility] Comment on above: Performed By: #### 2 [id number] #### [facility] [address] [place] [address] Protein [Mass/Vol] 7.1 g/dL Normal 6.0-7.8 [facility] Comment on above: Performed By: #### 2 [id number] #### [facility] [address] [place] [address] Sodium [Moles/Vol] 132 mmol/L Low 135-145 [facility] Comment on above: Performed By: #### 2 [id number] #### [facility] [address] [place] [address] Urea nitrogen [Mass/Vol] 12 mg/dL Normal 5-21 [facility] Comment on above: Performed By: #### 2 [id number] #### [facility] [address] [place] [address] Urea nitrogen/Creatinine [Mass ratio] 17 No Units Normal 10-20 [facility] Comment on above: Performed By: #### 2 [id number] #### [facility] [address] [place] [address] Family Medicine Office/Clini c Noteon 09-12-2024 Family [...] pressure. Impaired diastolic relaxation. List of Providers: Oracle Manager: Rick Hernandez PA-C Montessori Toddler Teacher: Dr Phillip Orthopaedics: Dr Martinez LABS Cr/eGFR: [...] (07/13/24 11:18:00) [facility]: 12/18/2024 11:00 AM Scheduled Provider: [place], [address] Phone: [phone] Fax: [phone] The patient is presenting with concerns surrounding [...] current e (more content not included)... Normal [facility] Comment on above: Result Comment: Elec tronically Signed By: Yocasta SMITH, Myron MUÑOZ CNP\.br\Date and Time Signed: 09/12/24 15:31 EDT eGFRon 09-12-2024 eGFR 98 mL/min/1.73 m2 Normal >=59 [facility] Comment on above: Performed By: #### 1 [id number] #### [facility] [address] [place] [address] Provider Letteron 09-04-2024 Provider Letter Provider Letter September 04, 2024 CARMEN BLEDSOE [address] [place] [address] : 1960 Dear Carmen, We have been trying to reach you with no success. Please call us at [phone] in regards to rescheduling your Colonoscopy. Thank you for your prompt attention to this matter. Sincerely, [facility] [facility] Normal [facility] Ambulatory Visit Summaryon 0 07-18-2024 Ambulatory Visit [...] EST With: Yocasta SMITH, Myron ESPINO Where: [facility] [place] [address] [place] [address]- Tuesday 11:00 AM EST With: Where: [facility] Services Tuesday 11:00 AM EDT With: Rick Hernandez PA-C Where: [facility] [place] You Need to Schedule the Following Appointments Follow Up with Yocasta SMITH, DARLEEN-IRVING, Myron Hamilton When: Only if needed Comments: keep next month appt Where: [address] [place] [phone] Medications What How Much When Why Instructions New semaglutide (Ozempic 2 mg/ 3 mL (0.25 mg or 0.5 mg dose) subcutaneous solution) 0.5 Milligram Subcutaneous Every week Type 2 diabetes mellitus with morbid obesity Pickup at [id number] Unchanged albuterol (albuterol 0.083% Inh Rochelle 3 [...] E11.9 Co (more content not included)... Normal [facility] Family Medicine Office/Clini c Noteon 07-18-2024 Family [...] qWeek, # 2 EA, Refills(s) 0, Pharmacy: [facility] #[id number], 168, cm, 07/18/24 11:59:00 EST, Height/Length Dosing, [...] Follow-up With When Contact Information Yocasta SMITH, WARDROBE CUSTODIAN-CHART COLLECTORMyron Only if needed [address] [place] [phone] Additional Instructions: keep next month appt Patient [...] hip p (more content not included)... Normal [facility] Comment on above: Result Comment: Elec tronically Signed By: Yocasta SMITH, WARDROBE CUSTODIAN- Myron VILLATORO\.br\Date and Time Signed: 07/18/24 12:22 EST [id number] 07-17-2024 HbA1c (Bld) [Mass fraction] 5.7 % Normal <=5.9 [facility] Comment on above: Performed By: #### 7 [id number] #### [facility] Laboratory [address] [place] [address] Ambulatory Visit Summaryon 0 07-13-2024 Ambulatory Visit [...] EST With: Yocasta SMITH, Myron ESPINO Where: [facility] [address] [place] [address]- Tuesday 1:00 PM EST With: Yocasta SMITH, Myron ESPINO Where: [facility] [address] [place] [address]- Tuesday 11:00 AM EST With: Where: [facility] Services Tuesday 11:00 AM EDT With: Rick Hernandez PA-C Where: [facility] [place] Medications What How Much When Why Instructions [...] you are (more content not included)... Normal [facility] Ambulatory Visit Summary Ambulatory Visit Summary CARMEN [...] Team Primary Care Physician - Yocasta MSN, WARDROBE CUSTODIAN-CHART COLLECTOR, Myron Hamilton This Is Your Medications List [...] EST With: Yocasta SMITH, Myron ESPINO Where: [facility] [address] [place] [address]- Tuesday 1:00 PM EST With: SRINIVAS Pereyra Tammy L. Where: [facility] [address] [place] [address]- Tuesday 11:00 AM EST With: Where: [facility] Tuesday 11:00 AM EDT With: Rick Hernandez PA-C Where: [facility] [place] You Need to Complete the Following [id number], Blood, Routine collect, 11/02/23, Order for future [...] Lab Collec (more content not included)... Normal [facility] BNPon 07-13-2024 Int Ctr BNP Pass Normal [facility] Comment on above: Performed By: #### 1 [id number] #### [facility] Laboratory [address] [place] [address] Natriuretic peptide B (Bld) [Mass/Vol] 39 pg/mL Normal 5-80 [facility] Comment on above: Performed By: #### 1 [id number] #### [facility] Laboratory [address] [place] [address] CBC w/ Auto Diffon 5 Basophils/100 WBC (Bld) 0.7 % Normal 0.0-2.0 [facility] Comment on above: Performed By: #### 2 [id number] #### [facility] Laboratory [address] [place] [address] Basophils/Leukocytes Auto (Bld) [Pure # fraction] 0.0 E9/L Normal 0.0-0.2 [facility] Comment on above: Performed By: #### 2 [id number] #### [facility] Laboratory [address] [place] [address] Eosinophils (Bld) [#/Vol] 0.1 E9/L Normal 0.0-0.5 [facility] Comment on above: Performed By: #### 2 [id number] #### [facility] Laboratory [address] [place] [address] Eosinophils/100 WBC (Bld) 1.1 % Normal 0.0-8.0 [facility] Comment on above: Performed By: #### 2 [id number] #### [facility] Laboratory [address] [place] [address] Erythrocyte distribution width (RBC) [Ratio] 15.5 % High 10.9-14.2 [facility] Comment on above: Performed By: #### 2 [id number] #### [facility] Laboratory [address] [place] [address] Hematocrit (Bld) [Volume fraction] 41.1 % Normal 34.0-46.0 [facility] Comment on above: Performed By: #### 2 130206 #### [facility] Laboratory [address] [place] [address] Hemoglobin (Bld) [Mass/Vol] 14.2 g/dL Normal 12.0-16.0 [facility] Comment on above: Performed By: #### 2 [id number] #### [facility] Laboratory [address] [place] [address] Lymphocytes (Bld) [#/Vol] 1.2 E9/L Normal 1.0-4.0 [facility] Comment on above: Performed By: #### 2 043419 #### [facility] Laboratory [address] [place] [address] Lymphocytes/100 WBC (Bld) 18.3 % Normal 14.0-50.0 [facility] Comment on above: Performed By: #### 2 919142 #### [facility] Laboratory [address] [place] [address] MCH (RBC) [Entitic mass] 32.3 pg Normal 27.0-34.0 [facility] Comment on above: Performed By: #### 2 048971 #### [facility] Laboratory [address] [place] [address] MCHC (RBC) [Mass/Vol] 34.5 g/dL Normal 31.4-36.0 [facility] Comment on above: Performed By: #### 2 [id number] #### [facility] [address] [place] [address] MCV (RBC) [Entitic vol] 93.7 fL Normal 80.0-100.0 [facility] Comment on above: Performed By: #### 2 894566 #### [facility] Laboratory [address] [place] [address] Monocytes (Bld) [#/Vol] 0.4 E9/L Normal 0.2-1.0 [facility] Comment on above: Performed By: #### 2 168632 #### [facility] [address] [place] [address] Neutrophils (Bld) [#/Vol] 4.8 E9/L Normal 2.0-7.5 [facility] Comment on above: Performed By: #### 2 701289 #### [facility] Laboratory [address] [place] [address] Neutrophils/100 WBC (Bld) 74.5 % Normal 36.0-75.0 [facility] Comment on above: Performed By: #### 2 608630 #### [facility] Laboratory [address] [place] [address] Platelet mean volume (Bld) [Entitic vol] 8.3 fL Normal 6.4-10.8 [facility] Comment on above: Performed By: #### 2 [id number] #### [facility] Laboratory [address] [place] [address] Platelets (Bld) [#/Vol] 239.0 E9/L Normal 150.0-500.0 [facility] Comment on above: Performed By: #### 2 405411 #### [facility] Laboratory [address] [place] [address] RBC (Bld) [#/Vol] 4.4 E12/L Normal 4.3-5.9 [facility] Comment on above: Performed By: #### 2 061183 #### [facility] Laboratory [address] [place] [address] WBC corrected for nucl RBC Auto (Bld) [#/Vol] 6.5 E9/L Normal 4.0-11.0 [facility] Comment on above: Performed By: #### 2 530566 #### [facility] Laboratory [address] [place] [address] CHEMISTRYOrdered By: SYSTEM SYSTEM on 07-13-2024 Albumin [...] 39 pg/mL Normal 5 - 80 pg/mL [facility] HemeManSS CMPon 07-13-2024 Albumin [Mass/Vol] 4.3 g/dL Normal 3.3-5.0 [facility] Comment on above: Performed By: #### 2 [id number] #### [facility] Laboratory [address] [place] [address] Albumin/Globulin (S) [Mass conc ratio] 1.3 Normal 1.1-2.2 [facility] Comment on above: Performed By: #### 2 222015 #### [facility] [address] [place] [address] ALP [Catalytic activity/Vol] 66 Int._Unit/L Normal 21-98 [facility] Comment on above: Performed By: #### 2 351181 #### [facility] Laboratory [address] [place] [address] ALT No additional P-5'-P [Catalytic activity/Vol] 23 Int._Unit/L Normal 6-46 [facility] Comment on above: Performed By: #### 2 796432 #### [facility] Laboratory [address] [place] [address] Anion gap [Moles/Vol] 12 mmol/L Normal 6-16 [facility] Comment on above: Performed By: #### 2 [id number] #### [facility] Laboratory [address] [place] [address] AST [Catalytic activity/Vol] 18 Int._Unit/L Normal 5-43 [facility] Comment on above: Performed By: #### 2 854462 #### [facility] Laboratory [address] [place] [address] Bilirubin [Mass/Vol] 0.5 mg/dL Normal 0.0-1.1 [facility] Comment on above: Performed By: #### 2 826000 #### [facility] [address] [place] [address] Calcium [Mass/Vol] 9.8 mg/dL Normal 8.9-11.1 [facility] Comment on above: Performed By: #### 2 818979 #### [facility] [address] [place] [address] Chloride [Moles/Vol] 100 mmol/L Low 101-111 [facility] Comment on above: Performed By: #### 2 126555 #### [facility] Laboratory [address] [place] [address] CO2 [Moles/Vol] 27 mmol/L Normal 21-31 [facility] Comment on above: Performed By: #### 2 117819 #### [facility] [address] [place] [address] Creatinine [Mass/Vol] 0.7 mg/dL Normal 0.5-1.3 [facility] Comment on above: Performed By: #### 2 255958 #### [facility] [address] [place] [address] Globulin (S) [Mass/Vol] 3.2 g/dL Normal 1.4-4.0 [facility] Comment on above: Performed By: #### 2 353629 #### [facility] Laboratory [address] [place] [address] Glucose [Mass/Vol] 88 mg/dL Normal 55-199 [facility] Comment on above: Performed By: #### 2 428615 #### [facility] [address] [place] [address] Potassium [Moles/Vol] 4.3 mmol/L Normal 3.5-5.3 [facility] Comment on above: Performed By: #### 2 026577 #### [facility] [address] [place] [address] Protein [Mass/Vol] 7.5 g/dL Normal 6.0-7.8 [facility] Comment on above: Performed By: #### 2 875054 #### [facility] [address] [place] [address] Sodium [Moles/Vol] 135 mmol/L Normal 135-145 [facility] Comment on above: Performed By: #### 2 460856 #### [facility] [address] [place] [address] Urea nitrogen [Mass/Vol] 14 mg/dL Normal 5-21 [facility] Comment on above: Performed By: #### 2 661170 #### [facility] [address] [place] [address] Urea nitrogen/Creatinine [Mass ratio] 20 No Units Normal 10-20 [facility] Comment on above: Performed By: #### 2 208714 #### [facility] Laboratory [address] [place] [address] HEMATOLOGYOrdered By: SYSTEM SYSTEM on 07-13-2024 Basophils/100 [...] 07-13-2024 Cholesterol [Mass/Vol] 163 mg/dL Normal 120-200 [facility] Comment on above: Performed By: #### 2 591062 #### [facility] Laboratory [address] [place] [address] Cholesterol in HDL [Mass/Vol] 47 mg/dL Invalid Interpretation Code [facility] Comment on above: Result Comment: '>= 60 LOW RISK' '<= 40 HIGH RISK' Performed By: #### 2 300303 #### [facility] [address] [place] [address] Cholesterol in LDL [Mass/Vol] 97 mg/dL Normal <=129 [facility] Comment on above: Performed By: #### 2 391120 #### [facility] [address] [place] [address] Cholesterol in VLDL [Mass/Vol] 42 mg/dL High 7-40 [facility] Comment on above: Performed By: #### 2 861478 #### [facility] [address] [place] [address] Triglyceride [Mass/Vol] 208 mg/dL High <=149 [facility] Comment on above: Performed By: #### 2 193784 #### [facility] [address] [place] [address] Vit B12on 07-13-2024 Cobalamin (Vitamin B12) [Mass/Vol] 191 pg/mL Normal 50-1500 [facility] Comment on above: Performed By: #### 2 474082 #### [facility] [address] [place] [address] eGFRon 07-13-2024 eGFR 98 mL/min/1.73 m2 Normal >=59 [facility] Comment on above: Performed By: #### 1 [id number] #### [facility] Laboratory [address] [place] [address] Family Medicine Office/Clini c Noteon 07-12-2024 Family [...] the cramping. Did encouraged to follow-up with warper fixer if no improvement. 2. Alcohol problem drinking [...] days Additional Instructions: fasting labs Yocasta SMITH, WARDROBE CUSTODIAN-CHART COLLECTORMyron In [address] [place] [phone] Additional Instructions: chronic care Patient Education Alcohol [...] acquired Smoker (more content not included)... Normal [facility] Comment on above: Result Comment: Elec tronically Signed By: Yocasta SMITH, WARDROBE CUSTODIAN- CHART COLLECTORMyron\.br\Date and Time Signed: 07/12/24 20:01 EST Ambulatory Visit Summaryon 0 07-11-2024 Ambulatory Visit Summary Ambulatory Visit Summary CARMEN BLEDSOE :1960 Visit Date:07/11/2024 Ambulatory Visit Instructions Your Diagnosis Diarrhea Alcohol problem drinking Morbid (severe) obesity due to excess calories BMI 50.0-59.9, adult Immunization due Your Care Team Attending Physician - Yocasta MSN, WARDROBE CUSTODIAN-Myron VILLATORO Primary Care Physician - Yocasta SMITH, WARDROBE CUSTODIAN-Myron VILLATORO This Is Your Medications List dicyclomine [...] Appointments Tuesday 11:00 AM EST With: Where: [address] [address]- Tuesday 12:00 PM EST With: Yocasta SMITH, DARLEEN-Myron VILLATORO Where: [facility] [address] [place] [address]- Tuesday 1:00 PM EST With: Yocasta SMITH, DARLEEN-Myron VILLATORO Where: [facility] [address] [place] [address]- Tuesday 11:00 AM EST With: Where: [facility] Tuesday 11:00 AM EDT With: Rick Hernandez PA-C Where: [facility] [place] You Need to Schedule the Following Appointments Follow Up with nurse visit When: Within 2 to 3 days Comments: fasting labs Where: Follow Up with Yocasta SMTIH, DARLEEN-Myron VILLATORO When: In 1 week Comments: chronic care Where: [address] [place] [phone] You Need to Complete the Following B-Type [...] day as needed for Pain Pickup at [facility] #[id number] Unchanged albuterol (albuterol 0.083% Inh Rochelle 3 mL) 3 Shanta (more content not included)... Normal [facility] Ambulatory Visit Summaryon 1 08-06-2023 Ambulatory Visit Summary Ambulatory Visit Summary CARMEN BLEDSOE :1960 Visit Date:06/05/2024 Ambulatory Visit Instructions Your Diagnosis Benign hypertension Mixed hyperlipidemia Peripheral edema Your Care Team Attending Physician - David LEONARD, Rick Gipson Primary Care Physician - Yocasta MSN, WARDROBE CUSTODIAN-CHART COLLECTOR, Myron Hamilton Referring Physician - NONE, XXXX [...] Tuesday 1:00 PM EST With: Yocasta MSN, WARDROBE CUSTODIAN-CHART COLLECTOR, Myron Hamilton Where: [place] [address] [place] [address]- Tuesday 11:00 AM EST With: Where: [facility] Tuesday 11:00 AM EDT With: David LEONARD, Rick Gipson Where: [facility] [place] Medications What How Much When Why Instructions [...] problem jeramie (more content not included)... Normal [facility] Heart and Vascular Office/Cl inic [...] Daily, # 90 tab(s), Refills(s) 1, Pharmacy: [facility] #[id number], 168, cm, 06/05/24 13:03:00 EST, Height/Length Dosing, 145.9, kg, 06/05/24 13:03:00 EST, Weight Dosing 2. Mixed hyperlipidemia (E78.2: Mixed hyperlipidemia) Patient is currently taking rosuvastatin 40 mg daily for HLD. Continue with current medication Ordered: rosuvastatin, 40 mg = 1 tab(s), Oral, Daily, # 90 tab(s), Refills(s) 3, Pharmacy: [facility] #[id number], 168, cm, 06/05/24 13:03:00 EST, Height/Length Dosing, [...] Daily, # 90 tab(s), Refills(s) 1, Pharmacy: [facility] #[id number], 168, cm, 06/05/24 13:03:00 EST, Height/Length Dosing, 145.9, kg, 06/05/24 13:03:00 EST, Weight Dosing potassium chloride, 20 mEq = 1 tab(s), Oral, Daily, Take with Lasix, # 90 tab(s), Refills(s) 1, Pharmacy: [facility] #[id number], 168, cm, 06/05/24 13:03:00 EST, Height/Length Dosing, 145.9, kg, 06/05/24 13:03:00 EST, Weight Dosing Follow-up with me in 6 months or sooner if needed Portions of this record may have been created with voice recognition artificial intelligence software, specifically CareToSave, Ubookoo and or Patient Feed. Substitutions may have occurred due to the inherent limitations of voice recognition and artificial intelligence software. Follow-up No qualifying data available Problem List/Past Medical History Ongoing Alcohol problem drinking Benign hypertension Bilateral hip pain Bilateral leg edema BMI 45.0-49.9, adult (more content not included)... Normal [facility] Comment on above: Result Comment: [...] smear: 2019 DEXA: NA Labs: 08/10/[address] [facility] Diabetes/ prediabetes: Eye exam: few years ago, had cataract surgery Foot exam: 08/10/2023 done by Omari VILLATORO A1c: Hgb A1C %: 6.3 % High (08/20/22 15:02:00) Smokers/ former smokers: Low dose lung CT: _ List of Providers: Oracle Manager: Dr Ramirez Montessori Toddler Teacher: Dr Phillip Orthopaedics: Dr Juan BENAVIDES Cr/eGFR: [...] 4.6 mcg/mL (08/20/22 15:02:00) . Future Appointments [facility] Appt. Date: 02/22/2024 1:20 PM Scheduled Provider: Myron Macias [address] [place], [address] Phone: [phone] Fax: [phone] [address], [place], [id number] Phone: -- Fax: -- [facility] Appt. Date: 06/05/2024 1:00 PM Scheduled Provider: Adam SAMPSON, Alirio Hooper [address] [place], [address] Fax: [phone] [address] [place] [address], [address] Phone: -- Fax: -- [address] [place] [address], [address] Phone: -- Fax: -- [facility] Appt. Date: 08/31/2024 11:00 AM Scheduled Provider: LADY 1 FT [address] [place], [phone] Fax: -- She reports feeling well with [...] last HbA1c was 5.4% when checked at [facility]. She has discontinued her trazodone for sleep but continues to use a CPAP machine. She has already had a colonoscopy, and there is another scheduled in 3 months. Her last mammogram was (more content not included)... Normal [facility] Comment on above: Result Comment: [...] Adam SAMPSON, Alirio Hooper Where: [facility] [place] Tuesday 1:00 PM EST With: Yocasta SMITH, SRINIVAS, Myron Hamilton Where: [facility] [address] [place] [address]- Tuesday 11:00 AM EST With: Where: [facility] You Need to Schedule the Following Appointments Follow Up with Yocasta SMITH, SRINIVAS, Myron Hamilton When: In 6 months Comments: chronic care Where: [address] [place] [phone] Medications What How Much When Why Instructions Changed aripiprazole (Abilify 5 mg Tab) 1 Tablets By Mouth Every day Changed dulaglutide (Trulicity Pen 3 mg/ 0.5 mL subcutaneous solution) 3 Milligram Subcutaneous Every week Type 2 diabetes mellitus with morbid obesity Pickup at [facility] #88047 Unchanged albuterol (albuterol 0.083% Inh Rochelle 3 [...] Misc Prescription (more content not included)... Normal [facility] Heart and Vascular Office/Cl inic Noteon 01-28-2024 [...] after patient or guardian consented to allow [employer] to record this visit. BUD development disability specialist and provider reviewed before signing. BUD: Tyra Manatad/pasted by: Josse Nava Portions of this record may have been created with voice recognition artificial intelligence software, specifically CareToSave, Ubookoo and or Patient Feed. Substitutions may have occurred due to the [...] furosemide 4 (more content not included)... Normal [facility] Comment on above: Result Comment: Elec tronically Signed By: Adam SAMPSON, Alirio Hooper\.br\Date and Time Signed: 01/28/24 09:35 EDT\.br\Electronically Co-Signed By: Josse Nava\.br\Date and Time Co-Signed: 12/06/23 16:45 EDT [place] 12-26-2023 Consent [id number]# 1.00TIFF [facility] Discharge Instructionson Discharge Instructions [id number] 1.00TIFF [facility] Main OR Intraoperative Recor don 12-26-2023 Main OR Intraoperative Record IntraOp Document Type FT Summary Primary Physician: Walker Phillip MD Finalized Date/Time: 12/26/23 11:06:58 Pt. Name: CARMEN BLEDSOE French/Sex: 1960 Female Med Rec #: [id number] Physician: Marjan SAMPSON, Walker [employer] #: [id number] Pt. Type: O Room/Bed: / Admit/Disch: 12/23/23 [...] Lainez RN, Ray Graham Role Performed Anesthesiologist Cosmetic Chemist - Primary Staff - Other Architectural Renderer Time In 12/23/23 12:15:00 12/23/23 12:15:00 12/23/23 [...] and tissue Entry 1 Skin Integrity Intact, [place], Warm, and Skin Abnormality No Dry Outcomes Met? Yes Last Modified By: Felicia Lainez RN 12/23/23 12:25:30 Post-Care Text: The patient is free from signs and symptoms of injury caused by extraneous objects Patient Positioning FT Pre-Care Text: Identifies physical alterations that require additional precautions for procedure-specific posit (more content not included)... [facility] Consent for Treatmenton 12-03 Consent for Treatment [id number]#1 .00TIFF [facility] Discharge Instructionson Discharge Instructions CARMEN BLEDSOE [...] Appointments Tuesday 10:30 AM EDT With: Where: [facility] Tuesday 10:00 AM EDT With: Walker Phillip MD Where: [facility] Normal [address] [place] [address]- \.br\ Tuesday 1:00 PM EST \.br\ With: Adam SAMPSON, lAirio Hooper\.br\ Where: [facility]\.br\ New Follow Up Appointments after Discharge\.br\ Follow Up with Marjan SAMPSON, Walker Pritchett, GAS, MED When: \.br\ Comments:\.br\ Call Office in 2 weeks for results or follow-up Appt. \.br\ Where:\.br\ [address], [address] [facility] 3\.br\ [place] [address]-\.br\ [phone]\.br\ Medications\.br\ What How Much When Why Instructions [...] Chest discomfort: Most heart attacks involve discomf [facility] Comment on above: Result Comment: [...] MD. Current history and physical Reviewed. Colonoscopy ([id number]) on 03/17/2020 at 59 Years. L foot bunion/reconstruction . Eye/lens implant bilat. Knee replacement ([id number]).. Past Medical History Resolved Tubular adenoma of colon ([id number]): Resolved. COPD exacerbation ([id number]): Resolved.. Family History Liver cancer Father () Hypertension Sister Brother Mother () Stomach cancer Mother () . Procedure History Colonoscopy ([id number]) on 03/17/2020 at 59 Years. L foot bunion/reconstruction . Eye/lens implant bilat. Knee replacement ([id number]).. Colorectal neoplasm risk assessment High risk Previous [...] Daily, # 90 tab(s), Refills(s) 3, Pharmacy: [facility] #[id number], 167, cm, 01/11/23 11:15:00 EDT, Height/Length Dosing, 138, kg, 01/11/23 11:15:00 EDT, Weight Dosing Alcohol wipes: Alcohol wipes, See Instructions, 100 EA, 3, Use to check BS daily dx E11.9, [facility] #[id number], Supply, 163, cm, 12/30/21 11:09:00 EDT, Height/Length Dosing, 154, kg, 12/30/21 11:09:00 EDT, Weight Dosing Crestor 40 mg Tab: 40 mg = 1 tab(s), Oral, Daily, # 90 tab(s), Refills(s) 3, Pharmacy: [facility] #[id number], 167, cm, 05/09/23 8:15:00 EST, Height/Length Dosing, 145.6, kg, 05/09/23 8:15:00 EST, Weight Dosing FLUoxetine 20 mg Cap: 40 mg = 2 cap(s), Oral, Daily, # 180 cap(s), Refills(s) 1, Pharmacy: [facility] #[id number], 167, cm, 08/10/23 14:24:00 EST, Height/Length Dosing, 151.4, kg, 08/10/23 14:24:00 EST, Weight Dosing Glucometer: Glucometer, See Instructions, 1 EA, 0, Glucometer to test BS TID and PRN dx E11.9, [facility], Supply, 170, cm, 05/27/21 8:31:00 EST, Height/Length Dosing, 157.8, kg, 05/27/21 8:31:00 EST, Weight Dosing Jardiance 10 mg oral tablet: 10 mg, Oral, Daily, # 90 tab(s), Refills(s) 2, Pharmacy: [facility] #[id number], 167, cm, 08/10/23 14:24:00 EST, Height/Length Dosing, 151.4, kg, 08/10/23 14:24:00 EST, Weight Dosing Lancets: Lancets, See Instructions, 100 EA, 3, Use to check BS daily dx E11.9, [facility] #55246, Supply, 163, cm, 12/30/21 11:09:00 EDT, Height/Length Dosing, 154, kg, 12/30/21 11:09:00 EDT, Weight Dosing Nebulizer Machine: Nebulizer Machine, See Instructions, 1 EA, 0, Nebulizer Machine, [facility] #51902, Supply, 168, cm, 10/11/23 14:32:00 EDT, Height/Length Dosing, 160.2, kg, 10/11/23 14:32:00 EDT, Weight Dosing Nebulizer Tubing and Mouthpiece Kit: Nebulizer Tubing and Mouthpiece Kit, See Instructions, 1 kit(s), 0, Nebulizer Tubing and Mouthpiece Kit, [facility] #17677, Supply, 168, cm, 10/11/23 14:32:00 EDT, Height/Length Dosing, 160.2, kg, 10/11/23 14:32:00 EDT, Weight Dosing Pantoprazole [address] Tab: 40 mg = 1 tab(s), Oral, Daily, # 90 tab(s), Refills(s) 3, Pharmacy: [facility] #[id number], 167, cm, 01/11/23 11:15:00 EDT, Height/Length Dosing, 138, kg, 01/11/23 11:15:00 EDT, Weight Dosing Singulair 10 mg Tab: 10 mg = 1 tab(s), Oral, qPM, # 30 tab(s), Refills(s) 2, Pharmacy: [facility], 170, cm, 10/16/19 9:09:00 EDT, Height/Length Measured, 154.3, kg, 10/16/19 9:09:00 EDT, Weight Measured Spiriva Respimat 1.25 mcg/inh inhalation aerosol: 2 puff(s), Inhalation, Daily, 3 EA, Refill(s) 3, [facility], 163, cm, 12/30/21 11:09:00 EDT, Height/Length Dosing, 154, kg, 12/30/21 11:09:00 EDT, Weight Dosing Test Strips: Test Strips, See Instructions, 100 EA, 3, Use to test BS daily, [facility] #[id number], Supply, 167.5, cm, 10/18/22 13:30:00 EDT, Height/Length Dosing, 147, kg, 10/18/22 13:30:00 EDT, Weight Dosing Trulicity Pen 1.5 mg/0.5 mL subcutaneous solution: 1.5 mg, SubCutaneous, qWeek, # 4 EA, Refills(s) 0, Pharmacy: [facility] #[id number], 168, cm, 12/06/23 14:55:00 EDT, Height/Length Dosing, 139, kg, 12/06/23 14:55:00 EDT, Weight Dosing Ventolin HFA 90 mcg/inh Aerosol-Adpt: 2 (more content not included)... Normal [facility] Comment on above: Result Comment: Elec tronically Signed By: Walker Phillip MD\.br\Date and Time Signed: 12/23/23 12:58 EDT Main OR PACU I Recordon 12-03 Main OR PACU I Record PACU Phase I Document Type FT Summary Primary Physician: Walker Phillip MD Finalized Date/Time: 12/23/23 13:44:10 Pt. Name: CARMEN BLEDSOE/Sex: 1960 Female Med Rec #: [id number] Physician: Walker Phillip MD Financial #: [id number] Pt. Type: O Room/Bed: / Admit/Disch: 12/23/23 [...] By: Catarino Valentine RN 12/23/23 13:44 Normal [facility] Main OR Preoperative Recordo n 12-23-2023 Main OR Preoperative Record Holding Area Document Type FT Summary Primary Physician: Walker Phillip MD Finalized Date/Time: 12/23/23 10:57:22 Pt. Name: CARMEN BLEDSOE/Sex: 1960 Female Med Rec #: [id number] Physician: Walker Phillip MD Financial #: [id number] Pt. Type: O Room/Bed: / Admit/Disch: 12/23/23 [...] By: Jannet Adorno RN 12/23/23 10:57 Normal [facility] Monitor Recordon 12-23-2023 Monitor Record [id number]# 1.00TIFF Normal [facility] Nursing Narrative Noteon Nursing Narrative Note Unable to obtain accurate testing after attempt x2 RN d/t pt body habitus. Normal [facility] Patient Education - Texton 0 12-23-2023 Patient [...] or gets worse throughout the day. Normal [facility] Progress Note-Physicianon Progress Note-Physician Patient: CARMEN BLEDSOE Age: 63 years Sex: Female : 1960 Associated Diagnoses: None Author: Demar SAMPSON, Zaid Hooper Postoperative Information Postoperative disposition: Postoperative disposition: To PACU. Optimetrix number: Optimetrix number [id number]. Anesthetic utilized: General. Health Status Allergies: Allergic [...] meets criteria ( To home ). Normal [facility] Comment on above: Result Comment: [...] 90 tab(s), Refills(s) 3, Pharmacy: [facility] #[id number], 167, cm, 01/11/23 11:15:00 EDT, Height/Length Dosing, 138, kg, 01/11/23 11:15:00 EDT, Weight Dosing Alcohol wipes: Alcohol wipes, See Instructions, 100 EA, 3, Use to check BS daily dx E11.9, [facility] #94380, Supply, 163, cm, 12/30/21 11:09:00 EDT, Height/Length Dosing, 154, kg, 12/30/21 11:09:00 EDT, Weight Dosing Crestor 40 mg Tab: 40 mg = 1 tab(s), Oral, Daily, # 90 tab(s), Refills(s) 3, Pharmacy: [facility] #42988, 167, cm, 05/09/23 8:15:00 EST, Height/Length Dosing, 145.6, kg, 05/09/23 8:15:00 EST, Weight Dosing FLUoxetine 20 mg Cap: 40 mg = 2 cap(s), Oral, Daily, # 180 cap(s), Refills(s) 1, Pharmacy: [facility] #63215, 167, cm, 08/10/23 14:24:00 EST, Height/Length Dosing, 151.4, kg, 08/10/23 14:24:00 EST, Weight Dosing Glucometer: Glucometer, See Instructions, 1 EA, 0, Glucometer to test BS TID and PRN dx E11.9, [facility] [facility], 170, cm, 05/27/21 8:31:00 EST, Height/Length Dosing, 157.8, kg, 05/27/21 8:31:00 EST, Weight Dosing Jardiance 10 mg oral tablet: 10 mg, Oral, Daily, # 90 tab(s), Refills(s) 2, Pharmacy: [facility] #69433, 167, cm, 08/10/23 14:24:00 EST, Height/Length Dosing, 151.4, kg, 08/10/23 14:24:00 EST, Weight Dosing Lancets: Lancets, See Instructions, 100 EA, 3, Use to check BS daily dx E11.9, [facility] #61286, Supply, 163, cm, 12/30/21 11:09:00 EDT, Height/Length Dosing, 154, kg, 12/30/21 11:09:00 EDT, Weight Dosing Nebulizer Machine: Nebulizer Machine, See Instructions, 1 EA, 0, Nebulizer Machine, [facility] #14324, Supply, 168, cm, 10/11/23 14:32:00 EDT, Height/Length Dosing, 160.2, kg, 10/11/23 14:32:00 EDT, Weight Dosing Nebulizer Tubing and Mouthpiece Kit: Nebulizer Tubing and Mouthpiece Kit, See Instructions, 1 kit(s), 0, Nebulizer Tubing and Mouthpiece Kit, [facility] #97064, Supply, 168, cm, 10/11/23 14:32:00 EDT, Height/Length Dosing, 160.2, kg, 10/11/23 14:32:00 EDT, Weight Dosing Pantoprazole [address] Tab: 40 mg = 1 tab(s), Oral, Daily, # 90 tab(s), Refills(s) 3, Pharmacy: [facility] #32457, 167, cm, 01/11/23 11:15:00 EDT, Height/Length Dosing, 138, kg, 01/11/23 11:15:00 EDT, Weight Dosing Singulair 10 mg Tab: 10 mg = 1 tab(s), Oral, qPM, # 30 tab(s), Refills(s) 2, Pharmacy: [facility], 170, cm, 10/16/19 9:09:00 EDT, Height/Length [...] Use to test BS daily, [facility] #51712, Supply, 167.5, cm, 10/18/22 13:30:00 EDT, Height/Length Dosing, 147, kg, 10/18/22 13:30:00 EDT, Weight Dosing Trulicity Pen 1.5 mg/0.5 mL subcutaneous solution: 1.5 mg, SubCutaneous, qWeek, # 4 EA, Refills(s) 0, Pharmacy: [facility] #[id number], 168, cm, 12/06/23 14:55:00 EDT, Height/Length Dosing, 139, kg, 12/06/23 14:55:00 EDT, Weight Dosing Ventolin HFA 90 mcg/inh Aerosol-Adpt: 2 puff(s), Inhalation, q6hr for wheezing, 1 EA, Refill(s) 1, [facility] #54556, 167, cm, 09/29/22 11:37:00 EDT, Height/Length Dosing, 149.2, kg, 09/29/22 11:37:00 EDT, Weight Dosing Vitamin D3 5000 intl units oral capsule: 5,000 International_Unit = 1 cap(s), Oral, Daily, with food, # 100 cap(s), Refills(s) 1, Pharmacy: [facility] #57158, 170, cm, 10/13/22 9:06:00 EDT, Height/Length Dosing, 149.2, kg, 09/29/22 11:37:00 EDT, Weight Dosing albuterol 0.083% Inh Rochelle 3 mL: 2.5 mg, 3 mL, Inhalation, q6hr Shortness of breath or wheezing, 100 EA, Refill(s) 1, [facility] #06713, 168, cm, 10/11/23 14:32: (more content not included)... Normal [facility] Comment on above: Result Comment: Elec tronically Signed By: Demar SAMPSON, Zaid Hooper\.br\Date and Time Signed: 12/23/23 11:24 EDT RAD - MRI Reporton 4 RAD - MRI Report [id number]#1. 00TIFF Normal [facility] MRI LUMBAR SPINE WO CONTRAST on [...] Dwayne Ruffin MD 12/22/23 Final result Normal [facility] Insurance Correspondenceon 0 12-13-2023 Insurance Correspondence [id number]# 1.00TIFF Normal [facility] Physician Orderon 12-07-2023 Physician Order [id number]# 1.00TIFF Normal [facility] Ambulatory Visit Summaryon 0 12-06-2023 Ambulatory Visit Summary CARMEN BLEDSOE :1960 Visit Date:12/06/2023 Ambulatory Visit Instructions Your Care Team Attending Physician - Adam SAMPSON, Alirio Briggs. Primary Care Physician - Yocasta MSN, WARDROBE CUSTODIAN-CHART COLLECTOR, Myron Hamilton Referring Physician - NONE, XXXX [...] Appointments Tuesday 10:30 AM EDT With: Where: [facility] Tuesday 12:00 PM EDT With: Where: [facility] Tuesday 10:45 AM EDT With: Marjan SAMPSON, Walker Pritchett Where: [facility] Normal [address] [place] [address]- \.br\ Tuesday 1:00 PM EST \.br\ With: [...] for choosing us for your care.\.br\ \.br\ [facility] Consent for Treatmenton Consent for Treatment [id number]#1 .00TIFF Normal [facility] Ambulatory Visit Summaryon 0 11-25-2023 Ambulatory Visit Summary CARMEN BLEDSOE :1960 Visit Date:11/25/2023 Ambulatory Visit Instructions Your Diagnosis Benign hypertension Hepatomegaly Type 2 diabetes mellitus with morbid obesity Alcohol problem drinking Class 3 severe obesity due to excess calories with serious comorbidity in adult, Morbid (severe) obesity due to excess calories BMI 50.0-59.9, adult Your Care Team Attending Physician - Yocasta SMITH, WARDROBE CUSTODIAN-Myron VILLATORO Primary Care Physician - Yocasta SMITH, WARDROBE CUSTODIAN-CHART COLLECTORMyron. This Is Your Medications List tramadol (traMADOL [...] Adam SAMPSON, Alirio Hooper Where: [facility] Tuesday 10:30 AM EDT With: Where: [facility] Tuesday 12:00 PM EDT With: Where: [facility] Tuesday 10:45 AM EDT With: Marjan SAMPSON, Walker Pritchett Where: [facility] Normal [address] [place] [address]- \.br\ You Need to Schedule the Following Appointments\.br \ Follow Up with Yocasta MSN, WARDROBE CUSTODIAN-CHART COLLECTOR, Myron Hamilton When: In 3 months\.br\ Comments:\.br\ chronic care\.br\ Where:\.br\ [address]\.br\ [place] [address]\.br\ Medications\.br\ What How Much When Why Instructions\.br \ Changed tramadol (traMADOL 50 mg Tab) 1 Tablets By Mouth Every 6 hours as needed for for pain Pickup at [facility] #79158\.br\ Unchanged albuterol (albuterol 0.083% Inh Rochelle 3 [...] or concerns \.br\ Pharmacy Information\.br\ [facility] #[id number]: [address], [place] [phone]\.br\ \.br\ What How Much When Comments\.br\ Stop [...] [facility] Office/Clini c Noteon 11-25-2023 [...] smear: _ DEXA: _ Labs: 08/10/[address] [facility] Diabetes/ prediabetes: Eye exam: _ done by _ Foot exam: 08/10/2023 done by Omari CHART COLLECTOR A1c: Hgb A1C %: 6.3 % High (08/20/22 15:02:00) Smokers/ former smokers: Low dose lung CT: _ List of Providers: Oracle Manager: DR Ramirez Montessori Toddler Teacher: Dr Phillip Orthopaedics: Dr Juan BENAVIDES Cr/eGFR: eGFR: >60 (08/05/2023) Creatinine: 0.6 mg/dL (08/10/2023) A1c: Hgb A1C %: 5.4% (08/10/2023) TSH: TSH: 4.64 mcIU/mL (08/20/22 15:02:00) Vit D: No qualifying data available. LDL: LDL Direct: 67 mg/dL (08/10/2023) Lipids: Chol: 206 mg/dL (08/10/2023) HDL: 95 mg/dL (08/10/2023) LDL Direct: 67 mg/dL (08/10/2023) Microalbumin: U Microalb: >12 mcg/mL (08/10/2023) Future Appointments [facility] Appt. Date: 12/06/2023 3:15 PM Scheduled Provider: Adam SAMPSON, Alirio Hooper [address] [place] [address], [address] Fax: [phone] [address] [place] [address], [address] Phone: -- Fax: -- [address] [place] [address], [address] Phone: -- Fax: -- [facility] Appt. Date: 12/23/2023 10:30 AM Scheduled Provider: LADY 3 FT Phone: -- Fax: -- [facility] Appt. Date: 12/23/2023 12:00 PM Scheduled Provider: ENDO 1 FT Phone: -- Fax: -- [facility] Appt. Date: 01/13/2024 10:45 AM Scheduled Provider: Marjan SAMPSON, Walker Reyes, [address], [address] Phone: [phone] Fax: [phone] The patient has transitioned to using a [...] relapse experience (more content not included)... Normal [facility] Comment on above: Result Comment: Elec tronically Signed By: Yocasta SMITH, WARDROBE CUSTODIAN- [place], Myron Hamilton\.br\Date and Time Signed: 11/25/23 [...] to follow these instructions. Medicines ? Take vjga-jaz-rhxddwn and prescription medicines only as told by your health care provider. ? Do not start taking any new medicine unless your health care provider has approved. These include vyst-ffh-uoyxxle medicines, vitamins, herbs, and supplements. Some of [...] provider. Document Revised: 05/19/2022 Document Reviewed: 05/19/2022 [employer] Patient Education ? 2022 [employer] Endocrinology Type 2 Diabetes Mellitus, Self-Care, [...] glucose every (more content not included)... Normal [facility] Basic Metabolic Profon 11-16 Anion gap [Moles/Vol] 10 mmol/L Normal - [facility] Comment on above: Performed By: #### B MP, BNP ####[facility] Jre[address] [facility] [place], [place] [phone] Director: Yury Caba MD BUN/CRE Ratio 20 Normal 9- [facility] Comment on above: Performed By: #### B MP, BNP ####[facility] Ykb6433 [facility] [place] [phone] Director: Yury Caba MD Calcium [Mass/Vol] 9.2 mg/dL Normal 8.6-10.4 [facility] Comment on above: Performed By: #### B MP, BNP ####[facility] Mka9032 [facility] [place] [phone] Director: Yury Caba MD Chloride [Moles/Vol] 99 mmol/L Normal 98-107 [facility] Comment on above: Performed By: #### B MP, BNP ####[facility] Ayl3699 [facility] [place] [phone] Director: Yury Caba MD CO2 [Moles/Vol] 24 mmol/L Normal 20-31 [facility] Comment on above: Performed By: #### B MP, BNP ####[facility] Zfk3758 [facility] [place], [place] [phone] Director: Yury Caba MD Creatinine [Mass/Vol] 0.7 mg/dL Normal 0.5-0.9 [facility] Comment on above: Performed By: #### B MARIANA, BNP ####[facility] Pck3466 [place] [address] Lab Director: Yury Caba MD GFR/1.73 sq M.predicted among non-blacks MDRD (S/P/Bld) [Vol rate/Area] mL/min/{1.73_m2} Normal >60 [facility] Comment on above: Result Comment: [...] secretion. Performed By: #### B MARIANA, BNP ####[facility] Qvh0291 [place] [address] Lab Director: Yury Caba MD Glucose [Mass/Vol] 107 mg/dL High 70-99 [facility] Comment on above: Performed By: #### B MARIANA, BNP ####[facility] Qih1467 [place] [address] Lab Director: Yury Caba MD Potassium [Moles/Vol] 4.7 mmol/L Normal 3.7-5.3 [facility] Comment on above: Performed By: #### B MARIANA, BNP ####[facility] Fgo6635 [facility] [place] [address] Lab Director: Yury Caba MD Sodium [Moles/Vol] 133 mmol/L Low 135-144 [facility] Comment on above: Performed By: #### B MARIANA, BNP ####[facility] [address] [place] [address] Lab Director: Yury Caba MD Urea nitrogen [Mass/Vol] 14 mg/dL Normal 8-23 [facility] Comment on above: Performed By: #### B MP, BNP ####[facility] Ebn2516 [place] [address] lab Director: Yury Caba MD Brain Natri. Peptideon 11-16 Natriuretic peptide B (Bld) [Mass/Vol] 164 pg/mL Normal <300 [facility] Comment on above: Result Comment: An age-independent cutoff point of 300 pg/ml has a 98% negative predictive value excluding acute heart failure. Performed By: #### B MP, BNP ####[facility] Ivn6482 [place] [address] lab Director: Yury Caba MD Outside [facility] 11-17-2023 Outside Labs [id number]#1 .00TIFF [facility] Consent for Treatmenton 0 Consent for Treatment [id number]#1 .00TIFF [facility] Consent for Procedure/Surger yon 11-04-2023 Consent for Procedure/Surgery [id number]#1 .00TIFF Normal [facility] FL ARTHR/ASP/INJ MAJOR JT/BU RSA RT WO USon 11-04-2023 FL ARTHR/ASP/INJ MAJOR JT/BURSA RT WO US Begin Addendum #1 FLUORO DOSE: 84. 497 mGy Reference air kerma (Ka,r) Interpreted by: Casa Minor Jr., MD Signed by: Casa Minor Jr., MD 11/04/23 Edited Result - FINAL [facility] FL ARTHROGRAM RIGHT HIP S AN D Ion 11-04-2023 FL ARTHROGRAM RIGHT HIP S AND I Begin Addendum #1 FLUORO DOSE: 84. 497 mGy Reference air kerma (Ka,r) Interpreted by: Casa Minor Jr., MD Signed by: Casa Minor Jr., MD 11/04/23 Edited Result - FINAL Normal [facility] FL GUIDED NEEDLE PLACEMENTon 11-04-2023 FL GUIDED NEEDLE PLACEMENT Begin Addendum #1 FLUORO DOSE: 84. 497 mGy Reference air kerma (Ka,r) Interpreted by: Casa Minor Jr., MD Signed by: Casa Minor Jr., MD 11/04/23 Edited Result - FINAL Normal [facility] Ambulatory Visit Summaryon 0 11-02-2023 Ambulatory Visit Summary CARMEN BLEDSOE :1960 Visit Date:11/02/2023 Ambulatory Visit Instructions Your Diagnosis Elevated LFTs Hepatomegaly History of alcohol abuse History of colon polyps Smoker Your Care Team Attending Physician - Marjan SAMPSON, Walker Pritchett Primary Care Physician - Yocasta MSN, WARDROBE CUSTODIAN-CHART COLLECTOR, Myron Hamilton This Is Your Medications List [...] Tuesday 3:00 PM EDT With: Where: [facility] [place] 2023 3:00 PM EDT With: Where: [facility] Invalid Interpretation Code [address] [place] [address]- \.br\ Tuesday 3:15 PM EDT \.br\ With: Adam SAMPSON, Alirio Hooper\.br\ Where: [facility]\.br\ Tuesday 10:30 AM EDT \.br\ With:\.br\ Where: [facility]\.br\ Tuesday 12:00 PM EDT \.br\ With:\.br\ Where: [facility]\.br\ Tuesday 10:45 AM EDT \.br\ With: Marjan SAMPSON, Walker Pritchett\.br\ Where: [facility] Gastroenterology Office/Clin ic Noteon 11-02-2023 Gastroenterology Office/Clinic [...] POLYP BIOPSY: TUBULAR ADENOMA. CBC/CMP 08/10/[address] [facility]: RBC: (L) 3.78 MCV (H) 102.6 [...] Will get chronic liver disease panel Ordered: Zoxko-8-Erjljeusqpw KIM w/Reflex if POS Antimitochondrial Antibody, Quantitative Colonoscopy (Hospital Procedure) Comprehensive Metabolic Panel Current tobacco smoker 1034F E&M of New Patient Moderate 45-59 Min 20290 EGD Endoscopy (Hospital Procedure) Ferritin Fibroscan (Hospital [...] E&M of New Patient Moderate 45-59 Min 69663 EGD Endoscopy (Hospital Procedure) 3. 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 History of colon polyps (Z86.010: Personal history of colonic polyps) Had multiple TA's 2019, repeat colonoscopy Ordered: Colonoscopy (Hospital Procedure) E&M of New Patient Moderate 45-59 Min 46107 EGD Endoscopy (Hospital Procedure) 5. Smoker (F17.200: Nicotine dependence, unspecified, uncomplicated) Consulted Ordered: Colonoscopy (Hospital Procedure) E&M of New Patient Moderate 45-59 Min 17980 EGD Endoscopy (Hospital Procedure) Follow-up No qualifying [...] Tab, 4 (more content not included)... Normal [facility] Comment on above: Result Comment: Elec tronically Signed By: Marjan SAMPSON, Walker Pritchett\.br\Date and Time Signed: 11/02/23 11:03 EDT Physician Orderon 10-28-2023 Physician Order [id number]# 1.00TIFF Marcos Magana [facility] Family Medicine Office/Clini c Noteon 10-27-2023 [...] dose lung CT: _ List of Providers: Oracle Manager: Dr Ramirez Gastrointestinal: Dr Phillip LABS Cr/eGFR: [...] Microalb: 4.6 mcg/mL (08/20/22 15:02:00) Future Appointments [facility] Appt. Date: 11/02/2023 10:30 AM Scheduled Provider: Marjan SAMPSON, Walker Pritchett [address], [address] [facility] [address] [place], [address] Phone: [phone] Fax: [phone] [facility] [place] Appt. Date: 11/10/2023 3:00 PM Scheduled Provider: SERGEI Yarbrough Nurse Phone: -- Fax: -- [facility] [place] Appt. Date: 12/06/2023 3:15 PM Scheduled Provider: Adam SAMPSON, Alirio Hooper [address] [place], [address] Fax: [phone] She admitted that she relapsed on her [...] appointment with the GI doctor up at [facility] for her hepatomegaly and elevated liver. She [...] Does follow-up with Dr. Ramirez in the [place] office. Has been on her Lasix and [...] the office (more content not included)... Normal [facility] Comment on above: Result Comment: Elec tronically Signed By: Yocasta SMITH, WARDROBE CUSTODIAN- CHART COLLECTOR, Myron Hamilton\.br\Date and Time Signed: 10/27/23 08:09 [...] Marjan SAMPSON, Walker Pritchett Where: [facility] Invalid Interpretation Code [address] [place] [address]- \.br\ Tuesday 2:40 PM EDT \.br\ With: Yocasta SMITH, WARDROBE CUSTODIAN-CHART COLLECTOR, Myron Hamilton\.br\ Where: [facility] Insurance Correspondenceon 0 10-26-2023 Insurance Correspondence [id number]# 1.00TIFF Normal [facility] Patient Educationon 10-26-19 Patient Education Cardiovascular Heart [...] when you have heart failure Medicines Take wupt-fcy-tbxuvsk and prescription medicines only as told by [...] vaccines. Pneu (more content not included)... Normal [facility] Ambulatory Visit Summaryon 0 10-25-2023 Ambulatory Visit Summary CARMEN BLEDSOE :1960 Visit Date:10/25/2023 Ambulatory Visit Instructions Your Diagnosis Benign hypertension Mixed hyperlipidemia Bilateral leg edema Your Care Team Attending Physician - Adam SAMPSON, Alirio Briggs. Primary Care Physician - Yocasta MSN, WARDROBE CUSTODIAN-CHART COLLECTOR, Myron Hamilton Referring Physician - NONE, XXXX [...] Tuesday 1:20 PM EDT With: Yocasta SMITH, WARDROBE CUSTODIAN-CHART COLLECTOR, Myron Hamilton Where: [facility] Invalid Interpretation Code [address] [id number] \.br\ 2023 3:00 PM EDT \.br\ With:\.br\ Where: [facility] Consent for Treatmenton 10-03 Consent for Treatment [id number] .00TIFF Normal [facility] Heart and Vascular Office/Cl inic Noteon 10-25-2023 Heart and Vascular Office/Clinic Note Chief Complaint B/L EDEMA History of Present Illness 62-year-old female with history of bilateral lower extremity edema and diastolic heart failure as well as obesity, tobacco smoking, hypertension, hyperlipidemia. Negative stress test last year. Recently was having increased shortness of breath and lower extremity swelling went to [facility], and was told to take extra [...] refills Vi (more content not included)... Normal [facility] Comment on above: Result Comment: [...] Adam SAMPSON, Alirio Hooper Where: [facility] Tuesday 1:20 PM EDT With: Yocasta SMITH, Myron ESPINO Where: [facility] Medicine [facility] [address] [place] [address]- \.br\ You Need to Schedule the Following Appointments\.br \ Follow Up with Yocasta SMITH, SRINIVAS, Myron Hamilton When: In 2 weeks\.br\ Comments:\.br\ chronic care\.br\ Where:\.br\ [facility]\.br\ [place] [address]\.br\ Medications\.br\ What How Much When Why Instructions\.br \ New albuterol (albuterol 0.083% Inh Rochelle 3 mL) 3 Milliliter Inhalation Every 6 hours as needed for Shortness of breath or wheezing Refills: 1 Pickup at [facility] #[id number]\.br\ Changed dulaglutide (Trulicity Pen 1.5 mg/ 0.5 mL subcutaneous solution) 1.5 Milligram Subcutaneous Every week Pickup at [facility] #[id number]\.br\ Changed spironolactone (spironolactone 25 mg Tab) 1 Tablets By Mouth Every day Duration: 90 Days Pickup at [facility] #[id number]\.br\ Unchanged Misc Prescription (Nebulizer Machine) See instructions Moderate persistent asthma Nebulizer Machine Pickup at [facility] #[id number]\.br\ Unchanged Misc Prescription (Nebulizer Tubing and Mouthpiece Kit) See instructions Moderate persistent asthma Nebulizer Tubing and Mouthpiece Kit Pickup at [facility] #[id number]\.br\ Unchanged trazodone (traZODONE 50 mg Tab) 1 Tablets By Mouth Once a day (at bedtime) Pickup at [facility] #[id number]\.br\ Unchanged albuterol (Ventolin HFA 90 mcg/ inh [...] or concerns \.br\ Pharmacy Information\.br\ [facility] #[id number]: [address], [place] [id number] [phone]\.br\ \.br\ What How Much When Comments\.br\ Stop [...] personalized treatment goals for you. Generally, the [facility] Family Medicine Office/Mika Guzman 10-11-2023 Family Medicine Office/Clinic Note Chief Complaint Pt presents for [facility] ER F/U 10/06/23 for difficulty breathing. Valentino leg swelling HPI Staff ER followup: Hospital: [facility] Visit date:FGDL7T 10/06/23 Symptoms the patient [...] recently at [facility] for difficulty breathing. She was [...] a referral from me to gastrointestinal at [facility] for further evaluation of her hepatomegaly [...] failure) The patient was recently admitted to [facility] on 10/06/2023 due to respiratory distress, which led to a diagnosis of heart failure. She exhausted her spironolactone supply and was subsequently advised to double her Lasix dosage, with the final dose scheduled for today. We will send her a refill for her spironolactone. She has an appointment scheduled with her senior ssis developer, Dr. Ramirez, later this month. Given her recent weight gain, it is evident that fluid accumulation results in a resurgence of her condition. She is also scheduled to consult with a warper fixer for an enlarged liver. I am concerned [...] as pres (more content not included)... Normal [facility] Comment on above: Result Comment: Elec tronically Signed By: Yocasta SMITH, WARDROBE CUSTODIAN- Myron VILLATORO\.br\Date and Time Signed: 10/11/23 20:33 [...] these instructions at home: Medicines ? Take blsr-rsq-sseezav and prescription medicines only as told by your health care provider. ? Do not stop taking your medicines or change the amount you take. If you are having problems or side effects from your medicines, talk to your health care provider. ? If you are having difficulty paying for your medicines, contact a social services designee or your clinic. There are many programs [...] daily tasks (more content not included)... Normal [facility] ED Note-Physicianon 10-07-19 ED Note-Physician [id number]#1 .00TIFF [facility] Basic Metabolic Profon 10-05 Anion gap [Moles/Vol] 12 mmol/L Normal 9-17 [facility] Comment on above: Performed By: #### B DAYANA ECJA BMP, TROPI, CDP #### [facility] [address] [place] [address] Yard Driver: Yury Caba MD Calcium [Mass/Vol] 9.0 mg/dL Normal 8.6-10.4 [facility] Comment on above: Performed By: #### B DAYANA CEJA BMP, TROPI, CDP #### [facility] [address] [place] [address] Yard Driver: Yury Caba MD Chloride [Moles/Vol] 100 mmol/L Normal 98-107 [facility] Comment on above: Performed By: #### B PRINT PRESS OPERATOR, DIME, BMP, TROPI, CDP #### [facility] [address] [place] [address] Yard Driver: Yury Caba MD CO2 [Moles/Vol] 24 mmol/L Normal 20-31 [facility] Comment on above: Performed By: #### B PRINT PRESS OPERATOR, DIME, BMP, TROPI, CDP #### [facility] [address] [place] [address] Yard Driver: Yury Caba MD Creatinine [Mass/Vol] 0.5 mg/dL Normal 0.5-0.9 [facility] Comment on above: Performed By: #### B PRINT PRESS OPERATOR, DIME, BMP, TROPI, CDP #### [facility] [address] [place] [address] Yard Driver: Yury Caba MD GFR/1.73 sq M.predicted among non-blacks MDRD (S/P/Bld) [Vol rate/Area] mL/min/{1.73_m2} Normal >60 [facility] Comment on above: Result Comment: [...] renal tubular secretion. Performed By: #### B PRINT PRESS OPERATOR, DIME, BMP, TROPI, CDP #### [facility] [address] [place] [address] Yard Driver: Yury Caba MD Glucose [Mass/Vol] 122 mg/dL High 70-99 [facility] Comment on above: Performed By: #### B PRINT PRESS OPERATOR, DIME, BMP, TROPI, CDP #### [facility] [address] [phone] Yard Driver: Yury Caba MD Potassium [Moles/Vol] 3.4 mmol/L Low 3.7-5.3 [facility] Comment on above: Performed By: #### B PRINT PRESS OPERATOR, DIME, BMP, TROPI, CDP #### [facility] [address] [place], [place] [phone] Yard Driver: Yury Caba MD Sodium [Moles/Vol] 136 mmol/L Normal 135-144 [facility] Comment on above: Performed By: #### B PRINT PRESS OPERATOR, DIME, BMP, TROPI, CDP #### [facility] [address] [place] [address] Yard Driver: Yury Caba MD Urea nitrogen [Mass/Vol] 14 mg/dL Normal 8-23 [facility] Comment on above: Performed By: #### B PRINT PRESS OPERATOR, DIME, BMP, TROPI, CDP #### [facility] [address] [phone] Yard Driver: Yury Caba MD Brain Natri. Peptideon 10-05 Natriuretic peptide B (Bld) [Mass/Vol] 3161 pg/mL High <300 [facility] Comment on above: Result Comment: An age-independent cutoff point of 300 pg/ml has a 98% negative predictive value excluding acute heart failure. Performed By: #### B PRINT PRESS OPERATOR, DIME, BMP, TROPI, CDP #### [facility] [address] [phone] Yard Driver: Yury Caba MD CBC with Diffon 10-06-2023 Abs. Basophil 0.02 k/uL Normal 0.00-0.20 [facility] Comment on above: Performed By: #### B PRINT PRESS OPERATOR, DIME, BMP, TROPI, CDP #### [facility] [address] [place], [place] [phone] Yard Driver: Yury Caba MD Abs.Imm.Granulocyte 0.02 k/uL Normal 0.00-0.30 [facility] Comment on above: Performed By: #### B PRINT PRESS OPERATOR, DIME, BMP, TROPI, CDP #### [facility] [address] [place] [address] Yard Driver: Yury Caba MD Abs.Neutrophil (Seg) 4.75 k/uL Normal 2.5-7.0 [facility] Comment on above: Performed By: #### B PRINT PRESS OPERATOR, DIME, BMP, TROPI, CDP #### [facility] [address] [place] [address] Yard Driver: Yury Caba MD Basophils/100 WBC (Bld) 0 % Normal 0-2 [facility] Comment on above: Performed By: #### B PRINT PRESS OPERATOR, DIME, BMP, TROPI, CDP #### [facility] [address] [place] [address] Yard Driver: Yury Caba MD Eosinophils (Bld) [#/Vol] 0.03 10*3/uL Normal 0.00-0.40 [facility] Comment on above: Performed By: #### B PRINT PRESS OPERATOR, DIME, BMP, TROPI, CDP #### [facility] [address] [phone] Yard Driver: Yury Caba MD Eosinophils/100 WBC (Bld) 1 % Normal 0-5 [facility] Comment on above: Performed By: #### B PRINT PRESS OPERATOR, DIME, BMP, TROPI, CDP #### [facility] [address] [phone] Yard Driver: Yury Caba MD Erythrocyte distribution width (RBC) [Ratio] 13.8 % Normal 12.1-15.2 [facility] Comment on above: Performed By: #### B PRINT PRESS OPERATOR, DIME, BMP, TROPI, CDP #### [facility] [address] [phone] Yard Driver: Yury Caba MD Hematocrit (Bld) [Volume fraction] 36.4 % Normal 36.0-46.0 [facility] Comment on above: Performed By: #### B PRINT PRESS OPERATOR, DIME, BMP, TROPI, CDP #### [facility] [address] [place] [address] Yard Driver: Yury Caba MD Hemoglobin (Bld) [Mass/Vol] 12.5 g/dL Normal 12.0-16.0 [facility] Comment on above: Performed By: #### B PRINT PRESS OPERATOR, DIME, BMP, TROPI, CDP #### [facility] [address] [place] [address] Yard Driver: Yury Caba MD Immature granulocytes/100 WBC (Bld) 0 % Normal 0-5 [facility] Comment on above: Performed By: #### B PRINT PRESS OPERATOR, DIME, BMP, TROPI, CDP #### [facility] [address] [place] [address] Yard Driver: Yury Caba MD Lymphocytes (Bld) [#/Vol] 0.54 10*3/uL Low 1.00-4.80 [facility] Comment on above: Performed By: #### B PRINT PRESS OPERATOR, DIME, BMP, TROPI, CDP #### [facility] [address] [place] [address] Yard Driver: Yury Caba MD Lymphocytes/100 WBC (Bld) 9 % Low 15-40 [facility] Comment on above: Performed By: #### B PRINT PRESS OPERATOR, DIME, BMP, TROPI, CDP #### [facility] [address] [place] [address] Yard Driver: Yury Caba MD MCH (RBC) [Entitic mass] 34.1 pg High 26.0-34.0 [facility] Comment on above: Performed By: #### B PRINT PRESS OPERATOR, DIME, BMP, TROPI, CDP #### [facility] [address] [place] [address] Yard Driver: Yury Caba MD MCHC (RBC) [Mass/Vol] 34.3 g/dL Normal 31.0-37.0 [facility] Comment on above: Performed By: #### B PRINT PRESS OPERATOR, DIME, BMP, TROPI, CDP #### [facility] [address] [place] [address] Yard Driver: Yury Caba MD MCV (RBC) [Entitic vol] 99.2 fL Normal 80.0-100.0 [facility] Comment on above: Performed By: #### B PRINT PRESS OPERATOR, DIME, BMP, TROPI, CDP #### [facility] [address] [place] [address] Yard Driver: Yury Caba MD Monocytes (Bld) [#/Vol] 0.47 10*3/uL Normal 0.00-1.00 [facility] Comment on above: Performed By: #### B PRINT PRESS OPERATOR, DIME, BMP, TROPI, CDP #### [facility] [address] [place] [address] Yard Driver: Yury Caba MD Monocytes/100 WBC (Bld) 8 % Normal 4-8 [facility] Comment on above: Performed By: #### B PRINT PRESS OPERATOR, DIME, BMP, TROPI, CDP #### [facility] [address] [phone] Yard Driver: Yury Caba MD Neutrophil (Seg) 82 % High 47-75 [facility] Comment on above: Performed By: #### B PRINT PRESS OPERATOR, DIME, BMP, TROPI, CDP #### [facility] [address] [place] [address] Yard Driver: Yury Caba MD Platelet mean volume (Bld) [Entitic vol] 9.0 fL Normal 6.0-12.0 [facility] Comment on above: Performed By: #### B PRINT PRESS OPERATOR, DIME, BMP, TROPI, CDP #### [facility] [address] [place] [address] Yard Driver: Yury Caba MD Platelets (Bld) [#/Vol] 176 10*3/uL Normal 140-450 [facility] Comment on above: Performed By: #### B PRINT PRESS OPERATOR, DIME, BMP, TROPI, CDP #### [facility] [address] [place] [address] (830) Yard Driver: Yury Caba MD RBC (Bld) [#/Vol] 3.67 10*6/uL Low 4.00-5.20 [facility] Comment on above: Performed By: #### B PRINT PRESS OPERATOR, DIME, BMP, TROPI, CDP #### [facility] [address] [place] [address] Yard Driver: Yury Caba MD WBC (Bld) [#/Vol] 5.8 10*3/uL Normal 3.5-11.0 [facility] Comment on above: Performed By: #### B PRINT PRESS OPERATOR, DIME, BMP, TROPI, CDP #### [facility] [address] [place] [address] Yard Driver: Yury Caba MD D-Dimer Teston 10-06-2023 D-Dimer Test 0.68 ug/mL FEU High 0.00-0.59 [facility] Comment on above: Result Comment: When [...] B MARCIAL, DALY ANNE, TROPI, CDP #### [facility] [address] [place] [address] Yard Driver: Yury Caba MD RAD - MISCon 10-06-2023 RAD - MISC [id number] .00TIFF Normal [facility] Troponinon 10-06-2023 Troponin, High Sens 27 ng/L High 0-14 [facility] Comment on above: Result Comment: High Sensitivity Troponin values cannot be compared with other Troponin methodologies. Performed By: #### B MARCIAL, DALY ANNE, TROPI, CDP #### [facility] [address] [place] [address] Yard Driver: Yury Caba MD XR CHEST (2 VW)on 10-06-2023 XR CHEST (2 VW) EXAM: XR CHEST (2 VW ) HISTORY: Shortness of breath COMPARISON: None. IMPRESSION: FINDINGS/IMPRESSION: 1. Shallow breath with clear lungs. 2. Mild cardiomegaly. Interpreted by: Casa Minor Jr., MD Signed by: Casa Minor Jr., MD 10/06/23 Final result Normal [facility] US LIVERon 08-24-2023 US LIVER [...] Braulio Crawley DO 08/24/23 Final result Normal [facility] Hemoglobin A1Con 08-11-2023 Glucose [Mass/Vol] 108 mg/dL Normal [facility] Comment on above: Result Comment: The ADA and AACC recommend providing the estimated average glucose result to permit better patient understanding of their HBA1c result. Performed By: #### G LYHGB, LIPR, URNMAB ####[facility] [address] [place] [address] Lab Director: Agusto Ferrell MD#### DYLAN ANNE CP, ZFAST ####[facility] [address] [place] [address] lab Director: Yury Caba MD HbA1c (Bld) [Mass fraction] 5.4 % Normal 4.0-6.0 [facility] Comment on above: Performed By: #### G LYHGB, LIPR, URNMAB ####[facility] [address] [place] [address] lab Director: Agusto Ferrlel MD#### DYLAN ANNE CP, ZFAST ####[facility] [address] [place] [address] lab Director: Yury Caba MD Lipid Panelon 08-11-2023 Cholesterol [Mass/Vol] 206 mg/dL High NINF - 200 mg/dL [facility] Comment on above: Cholesterol Guidelines: <200 Desirable 200-240 Borderline >240 Undesirable Cholesterol in HDL [Mass/Vol] 95 mg/dL 40 - PINF mg/dL [facility] Comment on above: HDL Guidelines: <40 Undesirable 40-59 Borderline >59 Desirable Cholesterol in LDL [Mass/Vol] 67 mg/dL 0 - 130 mg/dL [facility] Comment on above: LDL Guidelines: <100 Desirable 100-129 Near to/above Desirable 130-159 Borderline >159 Undesirable Direct (measured) LDL and calculated LDL are not interchangeable tests. Cholesterol.total/Ch olesterol in HDL [Mass ratio] 2.2 {ratio} NINF - 5 [facility] Interpretation and review of laboratory results Abnormal [facility] Triglyceride [Mass/Vol] 221 mg/dL High NINF - 150 mg/dL [facility] Comment on above: Triglyceride Guidelines: <150 Desirable 150-199 Borderline 200-499 High >499 Very high Based on AHA Guidelines for fasting triglyceride, April 2012. [facility] Lipid Profileon 08-11-2023 Cholesterol [Mass/Vol] 206 mg/dL High <200 [facility] Comment on above: Result Comment: Cholesterol Guidelines: <200 Desirable 200-240 Borderline >240 Undesirable Performed By: #### G LYHGB, LIPR, URNMAB ####[facility] [address] [place] [address] Lab Director: Agusto Ferrell MD#### DYLAN ANNE CP, ZFAST ####[facility] [address] [place] [address] lab Director: Yury Caba MD Cholesterol in HDL [Mass/Vol] 95 mg/dL Normal >40 [facility] Comment on above: Result Comment: HDL Guidelines: <40 Undesirable 40-59 Borderline >59 Desirable Performed By: #### G LYHGB, LIPR, URNMAB ####[facility] [address] [place] [address] Lab Director: Agusto Ferrell MD#### DYLAN ANNE CP, ZFAST ####[facility] [address] [place], [place] [id number] Lab Director: Yury Caba MD Cholesterol in LDL [Mass/Vol] 67 mg/dL Normal 0-130 [facility] Comment on above: Result Comment: LDL Guidelines: <100 Desirable 100-129 Near to/above Desirable 130-159 Borderline >159 Undesirable Direct (measured) LDL and calculated LDL are not interchangeable tests. Performed By: #### G LYHGB, LIPR, URNMAB ####[facility] [address] [place] [address] Lab Director: Agusto Ferrell MD#### DYLAN ANNE, TAINA, ZFAST ####[facility] [address] [place], [place] [address])[phone] Director: Yury Caba MD Cholesterol.total/Ch olesterol in HDL [Mass ratio] 2.2 {ratio} Normal <5 [facility] Comment on above: Performed By: #### G LYHGB, LIPR, URNMAB ####[address] [address] Lab Director: Agusto Ferrell MD#### DYLAN ANNE, TAINA, ZFAST ####[facility] [address] [place], [place] [address])[phone] Director: Yury Caba MD Triglyceride [Mass/Vol] 221 mg/dL High <150 [facility] Comment on above: Result Comment: Triglyceride Guidelines: <150 Desirable 150-199 Borderline 200-499 High >499 Very high Based on AHA Guidelines for fasting triglyceride, April 2012. Performed By: #### G LYHGB, LIPR, URNMAB ####[facility] [address] [place] [address] Lab Director: Agusto Ferrell MD#### DYLAN ANNE, CP, ZFAST ####[facility] [address] [place], [place] [address])[phone] Director: Yury Caba MD Microalb.,Random Uron 2023 Creatinine [Mass/Vol] 45.3 mg/dL Normal 28.0-217.0 [facility] Comment on above: Performed By: #### G LYHGB, LIPR, URNMAB ####[facility] [address] [place] [address] Lab Director: Agusto Ferrell MD#### DYLAN ANNE, CP, ZFAST ####[facility] [address] [place] [address] lab Director: Yury Caba MD Microalb/Creat Ratio Can not be calculated Normal <25 [facility] Comment on above: Performed By: #### G LYHGB, LIPR, URNMAB ####[facility] [address] [place], [place] [address] lab Director: Agusto Ferrell MD#### DYLAN ANNE, CP, ZFAST ####[facility] [address] [place], [place] [id number] lab Director: Yury Caba MD Microalbumin conc. <12 Normal <21 [facility] Comment on above: Performed By: #### G LYHGB, LIPR, URNMAB ####[facility] [address] [place], [place] [phone] lab Director: Agusto Ferrell MD#### DYLAN ANNE, CP, ZFAST ####[facility] [address] [place], [place] [phone] lab Director: Yury Caba MD Microalbumin, Uron Albumin DL <= 20 mg/L (U) [Mass/Vol] mg/L [facility] - 21 mg/L [facility] Albumin/Creatinine DL <= 20 mg/L (U) [Ratio] Can not be calculated [facility] Creatinine (U) [Mass/Vol] 45.3 mg/dL 28.0 - 217.0 mg/dL [facility] XR HIP 2-3 VW W PELVIS RIGHT [...] Zaid Romero MD 08/11/23 Final result Normal [facility] XR Pelvis and Hip - right 2 Viewson 08-11-2023 Moderate degenerative joint space narrowing involves right hip without an acute osseous abnormality identified. [facility] RIS CONSOLIDATED EXAM: XR HIP 2-3 VW [...] hip shows no fracture or stress injury. [facility] CON[facility] Zaid Romero MD - 08/11/2023 [...] hip without an acute osseous abnormality identified. [facility] TV XR Pelvis and Hip - right 2 ViewsOrdered By: Zaid Romero on 08-11-2023 [employer] [facility] Work Phone: CBC with Auto Differentialon 08-10-2023 Basophils (Bld) [#/Vol] 0.03 10*3/uL N[facility] TV Basophils/100 WBC (Bld) 1 % 0 - 2 % [facility] Eosinophils (Bld) [#/Vol] 0.03 10*3/uL [facility] Eosinophils/100 WBC (Bld) 1 % 0 - 5 % [facility] Erythrocyte distribution width (RBC) [Ratio] 14.6 % 12.1 - 15.2 % [facility] Hematocrit (Bld) [Volume fraction] 38.8 % 36.0 - 46.0 % [facility] Hemoglobin (Bld) [Mass/Vol] 12.8 g/dL 12.0 - 16.0 g/dL [facility] Immature granulocytes (Bld) [#/Vol] 0.01 10*3/uL [facility] Immature granulocytes/100 WBC (Bld) 0 % 0 - 5 % [facility] Interpretation and review of laboratory results Abnormal [facility] Lymphocytes/100 WBC (Bld) 22 % 15 - 40 % [facility] Lymphocytes/100 WBC (Bld) 0.98 % Low [facility] MCH (RBC) [Entitic mass] 33.9 pg 26.0 - 34.0 pg [facility] MCHC (RBC) [Mass/Vol] 33.0 g/dL 31.0 - 37.0 g/dL [facility] MCV (RBC) [Entitic vol] 102.6 fL High 80.0 - 100.0 fL [facility] Monocytes/100 WBC (Bld) 8 % 4 - 8 % [facility] Monocytes/100 WBC (Bld) 0.34 % [facility] Neutrophils/100 WBC (Bld) 68 % 47 - 75 % [facility] Platelet mean volume (Bld) [Entitic vol] 9.0 fL 6.0 - 12.0 fL [facility] Platelets (Bld) [#/Vol] 192 10*3/uL [facility] RBC (Bld) [#/Vol] 3.78 10*6/uL Low 4.00 - 5.20 m/uL [facility] Segmented neutrophils/100 WBC (Bld) 2.99 % [facility] WBC other (Bld) [#/Vol] 4.4 [facility] CBC with Diffon 08-10-2023 Abs. Basophil 0.03 k/uL Normal 0.00-0.20 [facility] Comment on above: Performed By: #### G LYHGB, LIPR, URNMAB ####[facility] As[address] [place], [place] [id number])[phone] Director: Agusto Ferrell MD#### DYLAN ANNE, CP, ZFAST ####[facility] Nfn5747 [place], [place] [address])[phone] Director: Yury Caba MD Abs.Imm.Granulocyte 0.01 k/uL Normal 0.00-0.30 [facility] Comment on above: Performed By: #### G LYHGB, LIPR, URNMAB ####[address] [place], [place] [address])[phone] Director: Agusto Ferrell MD#### DYLAN ANNE, CP, ZFAST ####[facility] Ixs9280 [place], [place] [address])[phone] Director: Yury Caba MD Abs.Neutrophil (Seg) 2.99 k/uL Normal 2.5-7.0 [facility] Comment on above: Performed By: #### G LYHGB, LIPR, URNMAB ####[address] [place], [place] [address])[phone] Director: Agusto Ferrell MD#### DIMDarlene, DYLAN, CP, ZFAST ####[facility] Cos[address] [place], [place] [address])[phone] Director: Yury Caba MD Basophils/100 WBC (Bld) 1 % Normal 0-2 [facility] Comment on above: Performed By: #### G LYHGB, LIPR, URNMAB ####[address] [place] [address] Lab Director: Agusto Ferrell MD#### DIME, CDP, CP, ZFAST ####[facility] Gwx6331 [place], [place] [address])[phone] Director: Yury Caba MD Eosinophils (Bld) [#/Vol] 0.03 10*3/uL Normal 0.00-0.40 [facility] Comment on above: Performed By: #### G LYHGB, LIPR, URNMAB ####[address] [address])[phone] Director: Agusto Ferrell MD#### DIMDarlene, CDP, CP, ZFAST ####[facility] Vjl7171 [place], [place] [address])[phone] Director: Yury Caba MD Eosinophils/100 WBC (Bld) 1 % Normal 0-5 [facility] Comment on above: Performed By: #### G LYHGB, LIPR, URNMAB ####[place] [address] Lab Director: Agusto Ferrell MD#### DYLAN ANNE, CP, ZFAST ####[facility] [address] [place], [place] [address])[phone] Director: Yury Caba MD Erythrocyte distribution width (RBC) [Ratio] 14.6 % Normal 12.1-15.2 [facility] Comment on above: Performed By: #### G LYHGB, LIPR, URNMAB ####[facility] [address] [place] [address])[phone] Director: Agusto Ferrell MD#### DIMDYLAN Colon, CP, ZFAST ####[facility] Fjx[address] [place], [place] [address])[phone] Director: Yury Caba MD Hematocrit (Bld) [Volume fraction] 38.8 % Normal 36.0-46.0 [facility] Comment on above: Performed By: #### G LYHGB, LIPR, URNMAB ####[facility] [address] [place], [place] [phone] Director: Agusto Ferrell MD#### DIME, CDP, CP, ZFAST ####[facility] Ulz1384 [place] [address] Lab Director: Yury Caba MD Hemoglobin (Bld) [Mass/Vol] 12.8 g/dL Normal 12.0-16.0 [facility] Comment on above: Performed By: #### G LYHGB, LIPR, URNMAB ####[address] [place], [place] [phone] Director: Agusto Ferrell MD#### DIME, CDP, CP, ZFAST ####[facility] Qqj2025 [place], [place] [address])[phone] Director: Yury Caba MD Immature granulocytes/100 WBC (Bld) 0 % Normal 0-5 [facility] Comment on above: Performed By: #### G LYHGB, LIPR, URNMAB ####[address] [place] [address] Lab Director: Agusto Ferrell MD#### DIMDarlene, CDP, CP, ZFAST ####[facility] Rab5636 [place] [address] Lab Director: Yury Caba MD Lymphocytes (Bld) [#/Vol] 0.98 10*3/uL Low 1.00-4.80 [facility] Comment on above: Performed By: #### G LYHGB, LIPR, URNMAB ####[facility] [address]gzh[address]qtwy[address]2 [place] [address] Lab Director: Agusto Ferrell MD#### DIME, CDP, CP, ZFAST ####[facility] Ngn1194 [place], [place] [phone] Lab Director: Yury Caba MD Lymphocytes/100 WBC (Bld) 22 % Normal 15-40 [facility] Comment on above: Performed By: #### G LYHGB, LIPR, URNMAB ####[facility] [address] [place], [place] 2645508 Lab Director: Agusto Ferrell MD#### DIME, CDP, CP, ZFAST ####[facility] Auh3759 [place], [place] [phone] Lab Director: Yury Caba MD MCH (RBC) [Entitic mass] 33.9 pg Normal 26.0-34.0 [facility] Comment on above: Performed By: #### G LYHGB, LIPR, URNMAB ####[address] [phone] Lab Director: Agusto Ferrell MD#### DIME, CDP, CP, ZFAST ####[facility] Emf2965 [place] [address] Lab Director: Yury Caba MD MCHC (RBC) [Mass/Vol] 33.0 g/dL Normal 31.0-37.0 [facility] Comment on above: Performed By: #### G LYHGB, LIPR, URNMAB ####[facility] [address]73 [place] [address] Lab Director: Agusto Ferrell MD#### DIME, CDP, CP, ZFAST ####[facility] Cvs8921 [place], [place] [phone] Lab Director: Yury Caba MD MCV (RBC) [Entitic vol] 102.6 fL High 80.0-100.0 [facility] Comment on above: Performed By: #### G LYHGB, LIPR, URNMAB ####[facility] Ulfdetrqahfv5360 [place] [address] Lab Director: Agusto Ferrell MD#### DIMDarlene, DYLAN, CP, ZFAST ####[facility] Bhq9879 [place] [address] Lab Director: Yury Caba MD Monocytes (Bld) [#/Vol] 0.34 10*3/uL Normal 0.00-1.00 [facility] Comment on above: Performed By: #### G LYHGB, LIPR, URNMAB ####[facility] [place] [address] [id number] Lab Director: Agusto Ferrell MD#### DYLAN ANNE, CP, ZFAST ####[facility] Pxo1657 [place], [place] 4378190 Lab Director: Yury Caba MD Monocytes/100 WBC (Bld) 8 % Normal 4-8 [facility] Comment on above: Performed By: #### G LYHGB, LIPR, URNMAB ####[address] [address] Lab Director: Agusto Ferrell MD#### DYLAN ANNE, CP, ZFAST ####[facility] Qrd7574 [place] [address] Lab Director: Yury Caba MD Neutrophil (Seg) 68 % Normal 47-75 [facility] Comment on above: Performed By: #### G LYHGB, LIPR, URNMAB ####[facility] [place] [address] Lab Director: Agusto Ferrell MD#### DAYANA, DYLAN, CP, ZFAST ####[facility] Coi7528 [place], [place] [phone] Lab Director: Yury Caba MD Platelet mean volume (Bld) [Entitic vol] 9.0 fL Normal 6.0-12.0 [facility] Comment on above: Performed By: #### G LYHGB, LIPR, URNMAB ####[facility] Nifx[address]qla6[address] [place], [place] [phone] Director: Agusto Ferrell MD#### DIME, CDP, CP, ZFAST ####[facility] Kbc2795 [place], [place] [phone] Director: Yury Caba MD Platelets (Bld) [#/Vol] 192 10*3/uL Normal 140-450 [facility] Comment on above: Performed By: #### G LYHGB, LIPR, URNMAB ####[facility] Trp[address]xyhmd[address] [place], [place] [phone])[phone] Director: Agusto Ferrell MD#### DIME, CDP, CP, ZFAST ####[facility] Wzt1571 [place], [place] [phone])[phone] Director: Yury Caba MD RBC (Bld) [#/Vol] 3.78 10*6/uL Low 4.00-5.20 [facility] Comment on above: Performed By: #### G LYHGB, LIPR, URNMAB ####[facility] Hgoyx[address]ifqxnv5843 [place], [place] [phone] Director: Agusto Ferrell MD#### DIME, CDP, CP, ZFAST ####[facility] Ooi9552 [place], [place] [phone] Director: Yury Caba MD WBC (Bld) [#/Vol] 4.4 10*3/uL Normal 3.5-11.0 [facility] Comment on above: Performed By: #### G LYHGB, LIPR, URNMAB ####[facility] Ujji[address]igzo24[address] [place], [place] [phone] Director: Agusto Ferrell MD#### DIME, CDP, CP, ZFAST ####[facility] Kgq1789 [place] [address] Lab Director: Yury Caba MD Comp Metabolic Profon 2023 Albumin [Mass/Vol] 4.3 g/dL Normal 3.5-5.2 [facility] Comment on above: Performed By: #### G LYHGB, LIPR, URNMAB ####[facility] Bhcz[address]jhizfs4178 [place] [address] Lab Director: Agusto Ferrell MD#### DIME, CDP, CP, ZFAST ####[facility] Cro0937 [place] [address] Lab Director: Yury Caba MD Alkaline Phos 169 U/L High 35-104 [facility] Comment on above: Performed By: #### G LYHGB, LIPR, URNMAB ####[facility] Je[address]jwpagn[address]5 [place] [address] Lab Director: Agusto Ferrell MD#### DAYANA, DYLAN, CP, ZFAST ####[facility] Lxy5199 [place] [address] Lab Director: Yury Caba MD ALT [Catalytic activity/Vol] 84 U/L High 5-33 [facility] Comment on above: Performed By: #### G LYHGB, LIPR, URNMAB ####[facility] Uag[address]zgx4795 [place] [address] Lab Director: Agusto Ferrell MD#### DIMDarlene, CDP, CP, ZFAST ####[facility] Vca8765 [place] [address] Lab Director: Yury Caba MD Anion gap [Moles/Vol] 13 mmol/L Normal 9-17 [facility] Comment on above: Performed By: #### G LYHGB, LIPR, URNMAB ####[facility] Jtwif[address]ht[address]147 [place] [address] Lab Director: Agusto Ferrell MD#### DYLAN ANNE, CP, ZFAST ####[facility] Ham3604 [place] [address] Lab Director: Yury Caba MD AST [Catalytic activity/Vol] 83 U/L High <32 [facility] Comment on above: Performed By: #### G LYHGB, LIPR, URNMAB ####[facility] Ow[address]imvri4513 [place] [address] Lab Director: Agusto Ferrell MD#### DYLAN ANNE, CP, ZFAST ####[facility] Pio4770 [place], [place] 8131990 Lab Director: Yury Caba MD Bilirubin [Mass/Vol] 0.4 mg/dL Normal 0.3-1.2 [facility] Comment on above: Performed By: #### Loly LYHGB, LIPR, URNMAB ####[facility] [place] [address] Lab Director: Agusto Ferrell MD#### DYLAN ANNE, CP, ZFAST ####[facility] Rnx9653 [place] [address] Lab Director: Yury Caba MD BUN/CRE Ratio 17 Normal 9-20 [facility] Comment on above: Performed By: #### Loly LYHGB, LIPR, URNMAB ####[facility] [place] [address] Lab Director: Agusto Ferrell MD#### DYLAN ANNE, CP, ZFAST ####[facility] Ski0350 [place] [address] Lab Director: Yury Caba MD Calcium [Mass/Vol] 9.3 mg/dL Normal 8.6-10.4 [facility] Comment on above: Performed By: #### G LYHGB, LIPR, URNMAB ####[facility] Kab[address]u3905 [place] [address] Lab Director: Agusto Ferrell MD#### DIME, CDP, CP, ZFAST ####[facility] Lzh2571 [place] [address] Lab Director: Yury Caba MD Chloride [Moles/Vol] 98 mmol/L Normal 98-107 [facility] Comment on above: Performed By: #### G LYHGB, LIPR, URNMAB ####[facility] Dh[address]oqx6564 [place] [address] Lab Director: Agusto Ferrell MD#### DIME, CDP, CP, ZFAST ####[facility] Cvr9921 [place] [address] Lab Director: Yury Caba MD CO2 [Moles/Vol] 26 mmol/L Normal 20-31 [facility] Comment on above: Performed By: #### G LYHGB, LIPR, URNMAB ####[facility] [place] [address] Lab Director: Agusto Ferrell MD#### DIME, CDP, CP, ZFAST ####[facility] Bfk2430 [place] [address] Lab Director: Yury Caba MD Creatinine [Mass/Vol] 0.6 mg/dL Normal 0.5-0.9 [facility] Comment on above: Performed By: #### G LYHGB, LIPR, URNMAB ####[facility] [address]js[address]3149 [place] [address] Lab Director: Agusto Ferrell MD#### DIME, CDP, CP, ZFAST ####[facility] Stw8730 [place] [address] Lab Director: Yury Caba MD GFR/1.73 sq M.predicted among non-blacks MDRD (S/P/Bld) [Vol rate/Area] mL/min/{1.73_m2} Normal >60 [facility] Comment on above: Result Comment: [...] Performed By: #### G LYJAME LIPR, URNMAB ####[address] [address] Lab Director: Agusto Ferrell MD#### DYLAN ANNE CP, ZFAST ####[facility] C[address] [place] [id number] lab Director: Yury Caba MD Glucose [Mass/Vol] 91 mg/dL Normal 70-99 [facility] Comment on above: Performed By: #### Loly RAMSEY, LIPR, URNMAB ####[address] [address] Lab Director: Agusto Ferrell MD#### DYLAN ANNE CP, ZFAST ####[facility] Gim[address] [place] [address] lab Director: Yury Caba MD Potassium [Moles/Vol] 4.3 mmol/L Normal 3.7-5.3 [facility] Comment on above: Performed By: #### G LYHGB, LIPR, URNMAB ####[address] [id number] Lab Director: Agusto Ferrell MD#### DYLAN ANNE CP, ZFAST ####[facility] Baz5279 [facility] [place] [address] Lab Director: Yury Caba MD Protein [Mass/Vol] 7.2 g/dL Normal 6.4-8.3 [facility] Comment on above: Performed By: #### G LYHGB, LIPR, URNMAB ####[facility] Y[address]sp[address] [place] [address] Lab Director: Agusto Ferrell MD#### DAYANA, DYLAN, CP, ZFAST ####[facility] Q[address] [place] [address] Lab Director: Yury Caba MD Sodium [Moles/Vol] 137 mmol/L Normal 135-144 [facility] Comment on above: Performed By: #### G LYHGB, LIPR, URNMAB ####[facility] [address] [place] [address] Lab Director: Agusto Ferrell MD#### DYLAN ANNE, CP, ZFAST ####[facility] Fbu6803 [place], [place] 5364190 Lab Director: Yury Caba MD Urea nitrogen [Mass/Vol] 10 mg/dL Normal 8-23 [facility] Comment on above: Performed By: #### G LYHGB, LIPR, URNMAB ####[facility] Tsq[address]jlancf0259 [place] [address] Lab Director: Agusto Ferrell MD#### DAYANA, DYLAN, CP, ZFAST ####[facility] Snf8477 [address] [place], [place] 1089190 Lab Director: Yury Caba MD Comprehensive Metabolic Pane usman 08-10-2023 Albumin [Mass/Vol] 4.3 g/dL 3.5 - 5.2 g/dL [facility] ALP [Catalytic activity/Vol] 169 U/L High 35 - 104 U/L [facility] ALT [Catalytic activity/Vol] 84 U/L High 5 - 33 U/L [facility] Anion gap [Moles/Vol] 13 mmol/L 9 - 17 mmol/L [facility] AST [Catalytic activity/Vol] 83 U/L High NINF - 32 U/L [facility] Bilirubin [Mass/Vol] 0.4 mg/dL 0.3 - 1.2 mg/dL [facility] Calcium [Mass/Vol] 9.3 mg/dL 8.6 - 10.4 mg/dL [facility] Chloride [Moles/Vol] 98 mmol/L 98 - 107 mmol/L [facility] CO2 [Moles/Vol] 26 mmol/L 20 - 31 mmol/L [facility] Creatinine [Mass/Vol] 0.6 mg/dL 0.5 - 0.9 mg/dL [facility] GFR/1.73 sq M.predicted MDRD (S/P/Bld) [Vol rate/Area] - PINF [facility] Comment on above: These results are not [...] 91 mg/dL 70 - 99 mg/dL [facility] Interpretation and review of laboratory results Abnormal [facility] Potassium [Moles/Vol] 4.3 mmol/L 3.7 - 5.3 mmol/L [facility] Protein [Mass/Vol] 7.2 g/dL 6.4 - 8.3 g/dL [facility] Sodium [Moles/Vol] 137 mmol/L 135 - 144 mmol/L [facility] Urea nitrogen [Mass/Vol] 10 mg/dL 8 - 23 mg/dL [facility] Urea nitrogen/Creatinine [Mass ratio] 17 mg/mg 9 - 20 [facility] D-Dimer Teston 08-10-2023 D-Dimer Test 0.51 ug/mL FEU Normal 0.00-0.59 [facility] Comment on above: Result Comment: When [...] Performed By: #### G LYHGB, LIPR, URNMAB ####[facility] [place] [address] Lab Director: Agusto Ferrell MD#### DAYANA, DYLAN, CP, ZFAST ####[facility] Xpm[address] [place], [place] [phone] Lab Director: Yury Caba MD D-Dimer, Quantitativeon -0 Fibrin D-dimer FEU (PPP) [Mass/Vol] 0.51 [facility] Comment on above: When combined with a [...] prevalent in patients with distal DVT. [facility] Patient fasting?on 4 Patient fasting? Patient Refused Normal [facility] Comment on above: Performed By: #### G LYHGB, LIPR, URNMAB ####[facility] [address] [place], [place] [id number] Lab Director: Agusto Ferrell MD#### DAYANA, DYLAN, CP, ZFAST ####[facility] [address] [place], [place] [phone] Lab Director: Yury Caba MD XR Pelvis and Hip - right 2 Viewson 08-10-2023 Radiology Study observation (narrative) [facility] DUP LOWER EXTREMITY VENOU S BILATERALon 12-01-2022 Negative. [facility] CON[facility] EXAM: VL DUP LOWER EXTREMITY [...] within the superficial or deep system bilaterally. [facility] Casa Minor Jr., MD - [...] superficial or deep system bilaterally. IMPRESSION: Negative. [employer] Phone: Radiology Study observation (narrative) [employer] Phone: VL DUP LOWER EXTREMITY VENOU S BILATERALOrdered By: Casa Minor on 12-01-2022 [employer] Phone: XR CERVICAL SPINE (4-5 VIEWS )on 10-19-2022 FINDINGS/IMPRESSION: 1. Moderate disc space narrowing and anterior osteophyte formation from C4-C5 inferiorly. 2. Intervertebral foramina show minimal narrowing bilaterally due to facet and uncovertebral osteophytes. 3. No fracture. [facility]IS CONSOLIDATED EXAM: XR CERVICAL SPINE (4-5 VIEWS). HISTORY: Left hand weakness. COMPARISON: None. [facility] Casa Minor Jr., MD - 10/19/2022 EXAM: XR CERVICAL SPINE (4-5 VIEWS). HISTORY: Left hand weakness. COMPARISON: None. IMPRESSION: FINDINGS/IMPRESSION: 1. Moderate disc space narrowing and anterior osteophyte formation from C4-C5 inferiorly. 2. Intervertebral foramina show minimal narrowing bilaterally due to facet and uncovertebral osteophytes. 3. No fracture. [employer] Phone: Radiology Study observation (narrative) [employer] Phone: XR CERVICAL SPINE (4-5 VIEWS )Ordered By: Casa Minor on 10-19-2022 [employer] Phone: XR LUMBAR SPINE (MIN 4 VIEWS )on 10-19-2022 FINDINGS/IMPRESSION: 1. Moderate to moderately severe diffuse disc space narrowing and osteophyte formation similar to previous. 2. Mild facet degenerative change L4-L5 and L5-S1. 3. No fracture or pars defects. 4. Slight convex right lumbar curve unchanged. [facility] R[facility] CONSOLIDATED EXAM: XR LUMBAR SPIN E (MIN 4 VIEWS) HISTORY: Weakness of both legs COMPARISON: CT abdomen and pelvis 02/07/2020. [facility] Casa Minor Jr., MD - [...] 4. Slight convex right lumbar curve unchanged. [facility] [employer] Phone: Radiology Study observation (narrative) [facility] [employer] Work Phone: XR LUMBAR SPINE (MIN 4 VIEWS )Ordered By: Casa Minor on 10-19-2022 [facility] [employer] Work Phone: Glucose, Whole Bloodon 10-15 Glucose [Mass/Vol] 127 mg/dL High 65 - 99 mg/dL [facility] Interpretation and review of laboratory results Abnormal [facility] POCT glucoseOrdered By: Dilan Prescott on 10-15-2022 Interpretation and review of laboratory results Normal [facility] [employer] [place]? y [facility] [employer] Brain Natriuretic Peptideon 10-14-2022 Natriuretic peptide B (Bld) [Mass/Vol] 42 pg/mL NINF - 300 pg/mL [facility] [employer] Comment on above: An age-independent cutoff point of 300 pg/ml has a 98% negative predictive value excluding acute heart failure. CBC with Auto Differentialon 10-14-2022 Absolute Eos # 0.10 [facility] Absolute Lymph # 1.60 [facility] SECO URS [facility] Absolute [place] # 0.40 [facility] RS [facility] [employer] Basophils (Bld) [#/Vol] 0.00 10*3/uL [facility] Basophils/100 WBC (Bld) 1 % 0 - 2 % [facility] Differential Type YES [facility] Eosinophils/100 WBC (Bld) 2 % 0 - 5 % [facility] Hematocrit (Bld) [Volume fraction] 41.4 % 36 - 46 % [facility] Hemoglobin (Bld) [Mass/Vol] 13.5 g/dL 12.0 - 16.0 g/dL [facility] Interpretation and review of laboratory results Abnormal [facility] Lymphocytes/100 WBC (Bld) 24 % 15 - 40 % [facility] MCH (RBC) [Entitic mass] 30.8 pg 26 - 34 pg [facility] MCHC (RBC) [Mass/Vol] 32.7 g/dL 31 - 37 g/dL [facility] MCV (RBC) [Entitic vol] 94.3 fL 80 - 100 fL [facility] Monocytes/100 WBC (Bld) 5 % 4 - 8 % [facility] Platelet distribution width (Bld) [Ratio] 16.4 % High 12.1 - 15.2 % [facility] Platelets (Bld) [#/Vol] 264 10*3/uL [facility] RBC (Bld) [#/Vol] 4.39 10*6/uL 4.0 - 5.2 m/uL B [facility] Segmented neutrophils/100 WBC (Bld) 68 % 47 - 75 % [facility] Segs Absolute 4.70 [facility] WBC (Bld) [#/Vol] 6.9 10*3/uL [facility] CMPon 10-14-2022 Albumin [Mass/Vol] 4.4 g/dL 3.5 - 5.2 g/dL [facility] ALP [Catalytic activity/Vol] 86 U/L 35 - 104 U/L [facility] ALT [Catalytic activity/Vol] 33 U/L 5 - 33 U/L [facility] Anion gap [Moles/Vol] 14 mmol/L 9 - 17 mmol/L [facility] AST [Catalytic activity/Vol] 29 U/L NINF - 32 U/L [facility] Bilirubin [Mass/Vol] 0.3 mg/dL 0.3 - 1.2 mg/dL [facility] Calcium [Mass/Vol] 8.8 mg/dL 8.6 - 10.4 mg/dL [facility] Chloride [Moles/Vol] 96 mmol/L Low 98 - 107 mmol/L [facility] CO2 [Moles/Vol] 23 mmol/L 20 - 31 mmol/L [facility] Creatinine [Mass/Vol] 0.8 mg/dL 0.50 - 0.90 mg/dL [facility] GFR/1.73 sq M.predicted MDRD (S/P/Bld) [Vol rate/Area] - PINF [facility] Comment on above: These results are not [...] mg/dL High 70 - 99 mg/dL [facility] Potassium [Moles/Vol] 3.9 mmol/L 3.7 - 5.3 mmol/L [facility] Protein [Mass/Vol] 7.4 g/dL 6.4 - 8.3 g/dL [facility] Sodium [Moles/Vol] 133 mmol/L Low 135 - 144 mmol/L [facility] Urea nitrogen [Mass/Vol] 11 mg/dL 6 - 20 mg/dL [facility] [facility] Urea nitrogen/Creatinine (Bld) [Mass ratio] 14 9 - 20 [facility] Ethanolon 10-14-2022 Ethanol [Mass/Vol] 230 mg/dL High NINF - 10 mg/dL B ON [facility] Ethanol percent 0.23 % [facility] No Panel Informationon 10-14 [facility] Interpretation and review of laboratory results Abnormal [facility] Troponinon 10-14-2022 Troponin I.cardiac DL <= 0.01 ng/mL [Mass/Vol] 6 ng/L 0 - 14 ng/L [facility] Comment on above: High Sensitivity Tro ponin [...] 1. Mild cardiomegaly. 2. Mild bibasilar atelectasis. [employer] Work Phone: Radiology Study observation (narrative) [employer] Work Phone: XR CHEST PORTABLEOrdered By: Monroe Grant on 10-14-2022 [employer] Work Phone: CKon 10-13-2022 CK [Catalytic activity/Vol] 39 U/L 26 - 192 U/L [employer] [facility] Vitamin D 25 Hydroxyon 10-13 25-hydroxyvitamin D3 [Mass/Vol] 19.9 ng/mL Low 29.9 - PINF ng/mL [employer] Comment on above: Reference Range: Vitamin D status Range Deficiency <20 ng/mL Mild Deficiency 20-30 ng/mL Sufficiency 30-100 ng/mL Toxicity >100 ng/mL Interpretation and review of laboratory results Abnormal [employer] CHEMISTRYOrdered By: SYSTEM SYSTEM on 10-06-2022 Anion gap [Moles/Vol] 11 mmol/L Normal 6 - 16 mEq/L [facility] Remisol Calcium [Mass/Vol] 9.2 mg/dL Normal 8.9 - 11.1 mg/dL [facility] Remisol Chloride [Moles/Vol] 100 mmol/L Low 101 - 111 mmol/ L [facility] Remisol CO2 [Moles/Vol] 28 mmol/L Normal 21 - 31 mmol/L [facility] Remisol Creatinine [Mass/Vol] 0.8 mg/dL Normal 0.5 - 1.3 mg/dL [facility] Remisol GFR/1.73 sq M.predicted among blacks MDRD (S/P/Bld) [Vol rate/Area] mL/min/1.73 m2 Normal >=59mL/min/1.73 m2 [facility] Chem S GFR/1.73 sq M.predicted among non-blacks MDRD (S/P/Bld) [Vol rate/Area] mL/min/1.73 m2 Normal >=59mL/min/1.73 m2 [facility] Chem S Glucose [Mass/Vol] 180 mg/dL Normal 55 - 199 mg/dL [facility] Remisol Magnesium [Mass/Vol] 2.4 mg/dL Normal 1.3 - 2.4 mg/dL [facility] Remisol Potassium [Moles/Vol] 4.2 mmol/L Normal 3.5 - 5.3 mmol/L [facility] Remisol Sodium [Moles/Vol] 135 mmol/L Normal 135 - 145 mmol/L [facility] Remisol Urea nitrogen [Mass/Vol] 12 mg/dL Normal 5 - 21 mg/dL [facility] Remisol Urea nitrogen/Creatinine [Mass ratio] 15 mg/mg Normal 10 - 20 [facility] Remisol CHEMISTRYOrdered By: SYSTEM SYSTEM on 09-29-2022 Magnesium [Mass/Vol] 2.8 mg/dL High 1.3 - 2.4 mg/dL [facility] Remisol Glucose Glucometer (BldC) [M ass/Vol]Ordered By: José Sanchez on 09-14-2022 Glucose [Mass/Vol] 248 mg/dL [facility] Comment on above: Random Glucose Refer ence Range is dependent on time and content of last meal. Glucose of more than 200 mg/dL in a nonstressed, ambulatory subject supports the diagnosis of Diabetes Mellitus. Glucose Poct Glucometerson 0 09-14-2022 Glucose [Mass/Vol] 248 mg/dL Normal [facility] Comment on above: Result Comment: [facility] Glucose Reference Range is dependent on time and content of last meal. Glucose of more than 200 mg/dL in a nonstressed, ambulatory subject supports the diagnosis of Diabetes Mellitus. PERFORMED BY: [facility] [address] [place] [address] PATHOLOGIST INSTRUMENT SPECIALIST EZRA MCCLAIN M.D. Performed By: #### G LULS #### Point of Care testing , Glucose [Mass/Vol] 253 mg/dL Normal [facility] Comment on above: Result Comment: [facility] Glucose Reference Range is dependent on time and content of last meal. Glucose of more than 200 mg/dL in a nonstressed, ambulatory subject supports the diagnosis of Diabetes Mellitus. PERFORMED BY: [facility] [address] [place] [address] PATHOLOGIST INSTRUMENT SPECIALIST EZRA MCCLAIN M.D. Performed By: #### G LULS #### Point of Care testing , Alanine aminotransferase [En zymatic activity/volume] in Serum or PlasmaOrdered By: Rockydacuca Riosr on 09-13-2022 ALT [Catalytic activity/Vol] 59 U/L 7-52 [facility] Albumin [Mass/volume] in Ser um or Plasma by Bromocresol green (BCG) dye binding methoOrdered By: Obsruthidacuca Mejiaomar on 09-13-2022 Albumin BCG dye [Mass/Vol] 4.6 g/dL 3.5-5.7 [facility] Alkaline phosphatase [Enzyma tic activity/volume] in Serum or PlasmaOrdered By: Obaydah Robertoomar on 09-13-2022 ALP [Catalytic activity/Vol] 103 U/L 34-104 [facility] Aspartate aminotransferase [ Enzymatic activity/volume] in Serum or PlasmaOrdered By: Obaydah Robertoomar on 09-13-2022 AST [Catalytic activity/Vol] 80 U/L 13-39 [facility] Basophils Auto (Bld) [#/Vol] Ordered By: Obsruthidacuca Mejiaomar on 09-13-2022 Basophils (Bld) [#/Vol] 0.0 10*3/uL 0.0-0.2 [facility] Basophils/100 WBC Auto (Bld) Ordered By: Obartur Mejiaomar on 09-13-2022 Basophils/100 WBC (Bld) 0.2 % . [facility] Bilirubin.total [Mass/volume ] in Serum or PlasmaOrdered By: Obsruthidacuca Daromar on 09-13-2022 Bilirubin [Mass/Vol] 0.4 mg/dL 0.3-1.0 [facility] Calcium [Mass/volume] in Ser um or PlasmaOrdered By: Obaydacuca Daromar on 09-13-2022 Calcium [Mass/Vol] 9.1 mg/dL 8.6-10.3 [facility] Carbon dioxide, total [Moles /volume] in Serum or PlasmaOrdered By: Obsruthidacuca Daromar on 09-13-2022 CO2 [Moles/Vol] 29.3 mmol/L 21.0-31.0 [facility] Chloride [Moles/volume] in S caitlyn or PlasmaOrdered By: Obsruthidacuca Daromar on 09-13-2022 Chloride [Moles/Vol] 96 mmol/L 98-107 [facility] Complete Blood Count Auto Di ffon 09-13-2022 Basophils (Bld) [#/Vol] 0.0 10*3/uL Normal 0.0-0.2 [facility] Comment on above: Result Comment: PERF ORMED BY: [facility] [address] [place] [address] PATHOLOGIST INSTRUMENT SPECIALIST EZRA MCCLAIN M.D. Performed By: #### G LULS #### Point of Care testing , Basophils/100 WBC (Bld) 0.2 % Normal . [facility] Comment on above: Performed By: #### G LULS #### Point of Care testing , Eosinophils (Bld) [#/Vol] 0.0 10*3/uL Normal 0.0-0.45 [facility] Comment on above: Performed By: #### G LULS #### Point of Care testing , Eosinophils/100 WBC (Bld) 0.0 % Normal . [facility] Comment on above: Performed By: #### Loly WIGGINSLS #### Point of Care testing , Erythrocyte distribution width (RBC) [Ratio] 18.2 % High 11.9-15.3 [facility] Comment on above: Performed By: #### Loly WIGGINSLS #### Point of Care testing , Hematocrit (Bld) [Volume fraction] 38.3 % Normal 34.0-46.4 [facility] Comment on above: Performed By: #### Loly PRUETT #### Point of Care testing , Hemoglobin (Bld) [Mass/Vol] 12.7 g/dL Normal 11.8-15.4 [facility] Comment on above: Performed By: #### Loly PRUETT #### Point of Care testing , Lymphocytes (Bld) [#/Vol] 0.5 10*3/uL Low 1.00-4.8 [facility] Comment on above: Performed By: #### Loly WIGGINSLS #### Point of Care testing , Lymphocytes/100 WBC (Bld) 6.4 % Normal . [facility] Comment on above: Performed By: #### Loly PRUETT #### Point of Care testing , MCH (RBC) [Entitic mass] 31.7 pg Normal 24.7-34.3 [facility] Comment on above: Performed By: #### Loly PRUETT #### Point of Care testing , MCV (RBC) [Entitic vol] 95.9 fL Normal 80-100 [facility] Comment on above: Performed By: #### Loly PRUETT #### Point of Care testing , Mean Corpuscular HGB Conc 33.1 g/dL Normal 32.0-35.0 [facility] Comment on above: Performed By: #### Loly WIGGINSLS #### Point of Care testing , Monocytes (Bld) [#/Vol] 0.3 10*3/uL Normal 0.0-0.8 [facility] Comment on above: Performed By: #### Loly PRUETT #### Point of Care testing , Monocytes/100 WBC (Bld) 3.8 % Normal . [facility] Comment on above: Performed By: #### Loly PRUETT #### Point of Care testing , Neutrophils (Bld) [#/Vol] 6.8 10*3/uL Normal 1.8-7.7 [facility] Comment on above: Performed By: #### Loly WIGGINSLS #### Point of Care testing , Neutrophils/100 WBC (Bld) 89.6 % Normal . [facility] Comment on above: Performed By: #### Loly WIGGINSLS #### Point of Care testing , NRBC% 0.0 /100{WBC} Normal 0-0.5 [facility] Comment on above: Performed By: #### Loly WIGGINSLS #### Point of Care testing , Platelet mean volume (Bld) [Entitic vol] 7.5 fL Normal 6.3-10.7 [facility] Comment on above: Performed By: #### Loly PRUETT #### Point of Care testing , Platelets (Bld) [#/Vol] 201 10*3/uL Normal 150-450 [facility] Comment on above: Performed By: #### Loly PRUETT #### Point of Care testing , RBC (Bld) [#/Vol] 4.00 10*6/uL Normal 3.60-5.00 [facility] Comment on above: Performed By: #### Loly PRUETT #### Point of Care testing , WBC (Bld) [#/Vol] 7.6 10*3/uL Normal 3.8-11.6 [facility] Comment on above: Performed By: #### Loly WIGGINSLS #### Point of Care testing , Comprehensive Metabolic Pane usman 09-13-2022 Albumin [Mass/Vol] 4.6 g/dL Normal 3.5-5.7 [facility] Comment on above: Performed By: #### Loly WIGGINSLS #### Point of Care testing , Albumin/Globulin [Mass ratio] 1.7 {ratio} Normal [facility] Comment on above: Performed By: #### Loly WIGGINSLS #### Point of Care testing , ALP [Catalytic activity/Vol] 103 U/L Normal 34-104 [facility] Comment on above: Performed By: #### G ROSALIELS #### Point of Care testing , ALT [Catalytic activity/Vol] 59 U/L High 7-52 [facility] Comment on above: Performed By: #### G ROSALIELS #### Point of Care testing , Anion gap [Moles/Vol] Not performed Normal 6.0-15.0 [facility] Comment on above: Performed By: #### G ROSALIELS #### Point of Care testing , AST [Catalytic activity/Vol] 80 U/L High 13-39 [facility] Comment on above: Performed By: #### G ROSALIELS #### Point of Care testing , Bilirubin [Mass/Vol] 0.4 mg/dL Normal 0.3-1.0 [facility] Comment on above: Performed By: #### G ROSALIELS #### Point of Care testing , Calcium [Mass/Vol] 9.1 mg/dL Normal 8.6-10.3 [facility] Comment on above: Performed By: #### G ROSALIELS #### Point of Care testing , Chloride [Moles/Vol] 96 mmol/L Low 98-107 [facility] Comment on above: Performed By: #### G ROSALIELS #### Point of Care testing , CO2 [Moles/Vol] 29.3 mmol/L Normal 21.0-31.0 [facility] Comment on above: Performed By: #### G ROSALIELS #### Point of Care testing , Creatinine [Mass/Vol] 0.85 mg/dL Normal 0.60-1.20 [facility] Comment on above: Performed By: #### G ROSALIELS #### Point of Care testing , Creatinine Clr Calc Pharmacy 104.67 Normal [facility] Comment on above: Result Comment: PERF ORMED BY: [facility] [address] [place] [address] PATHOLOGIST INSTRUMENT SPECIALIST EZRA MCCLAIN M.D. Performed By: #### G ROSALIELS #### Point of Care testing , GFR/1.73 sq M.predicted MDRD (S/P/Bld) [Vol rate/Area] mL/min/{1.73_m2} Normal [facility] Comment on above: Performed By: #### G FLYNN #### Point of Care testing , Globulin (S) [Mass/Vol] 2.7 g/dL Normal [facility] Comment on above: Performed By: #### G ROSALIELS #### Point of Care testing , Glucose [Mass/Vol] 284 mg/dL High 74-109 [facility] Comment on above: Result Comment: [facility] Glucose Reference Range is dependent on time and content of last meal. Glucose of more than 200 mg/dL in a nonstressed, ambulatory subject supports the diagnosis of Diabetes Mellitus. ADA recommended reference range Performed By: #### G ROSALIELS #### Point of Care testing , Potassium Normal 3.5-5.1 [facility] Comment on above: Result Comment: Spec imen hemolyzed, redraw requested Performed By: #### G ROSALIELS #### Point of Care testing , Protein [Mass/Vol] 7.3 g/dL Normal 6.4-8.9 [facility] Comment on above: Performed By: #### G FLYNN #### Point of Care testing , Sodium [Moles/Vol] 134 mmol/L Low 136-145 [facility] Comment on above: Performed By: #### G ROSALIELS #### Point of Care testing , Urea nitrogen [Mass/Vol] 37 mg/dL High 7-25 [facility] Comment on above: Performed By: #### G FLYNN #### Point of Care testing , Creatinine [Mass/volume] in Serum or PlasmaOrdered By: Marilyn Sun on 09-13-2022 Creatinine [Mass/Vol] 0.85 mg/dL 0.60-1.20 [facility] Eosinophils Auto (Bld) [#/Vo l]Ordered By: Marilyn Sun on 09-13-2022 Eosinophils (Bld) [#/Vol] 0.0 10*3/uL 0.0-0.45 [facility] Eosinophils/100 WBC Auto (Bl d)Ordered By: Marilyn Sun on 09-13-2022 Eosinophils/100 WBC (Bld) 0.0 % . [facility] Erythrocyte distribution wid th Auto (RBC) [Ratio]Ordered By: Obartur Robertoomar on 09-13-2022 Erythrocyte distribution width (RBC) [Ratio] 18.2 % 11.9-15.3 [facility] Globulin Calc (S) [Mass/Vol] Ordered By: Obsruthidacuca Robertoomar on 09-13-2022 Globulin (S) [Mass/Vol] 2.7 g/dL [facility] Glucose Poct Glucometerson 0 09-13-2022 Commemt1 Glu2: Cleaned Meter Normal [facility] Comment on above: Result Comment: PERF ORMED BY: [facility] [address] [place] [address] PATHOLOGIST INSTRUMENT SPECIALIST EZRA MCCLAIN M.D. Performed By: #### G LULS #### Point of Care testing , Glucose [Mass/Vol] 375 mg/dL Normal [facility] Comment on above: Result Comment: [facility] Glucose Reference Range is dependent on time and content of last meal. Glucose of more than 200 mg/dL in a nonstressed, ambulatory subject supports the diagnosis of Diabetes Mellitus. Performed By: #### G LULS #### Point of Care testing , Glucose [Mass/Vol] 360 mg/dL Normal [facility] Comment on above: Result Comment: [facility] Glucose Reference Range is dependent on time and content of last meal. Glucose of more than 200 mg/dL in a nonstressed, ambulatory subject supports the diagnosis of Diabetes Mellitus. PERFORMED BY: [facility] [address] [place] [address] PATHOLOGIST INSTRUMENT SPECIALIST EZRA MCCLAIN M.D. Performed By: #### C MP, CBC #### [address] Glucose [Mass/Vol] 348 mg/dL Normal [facility] Comment on above: Result Comment: [facility] Glucose Reference Range is dependent on time and content of last meal. Glucose of more than 200 mg/dL in a nonstressed, ambulatory subject supports the diagnosis of Diabetes Mellitus. PERFORMED BY: [facility] [address] [place] [id number] PATHOLOGIST INSTRUMENT SPECIALIST EZRA MCCLAIN M.D. Performed By: #### G FLYNN #### Point of Care testing , Commemt1 Glu2: Cleaned Meter Normal [facility] Comment on above: Result Comment: PERF ORMED BY: [facility] [address] [place] [address] PATHOLOGIST INSTRUMENT SPECIALIST EZRA MCCLAIN M.D. Performed By: #### G LULS #### Point of Care testing , Glucose [Mass/Vol] 261 mg/dL Normal [facility] Comment on above: Result Comment: [place] Glucose Reference Range is dependent on time and content of last meal. Glucose of more than 200 mg/dL in a nonstressed, ambulatory subject supports the diagnosis of Diabetes Mellitus. Performed By: #### G LULS #### Point of Care testing , Glucose [Mass/volume] in Ser um or PlasmaOrdered By: Marilyn Sun on 09-13-2022 Glucose [Mass/Vol] 284 mg/dL 74-109 [facility] Comment on above: ADA recommended refe rence rangeRandom Glucose Reference Range is dependent on time and content of last meal. Glucose of more than 200 mg/dL in a nonstressed, ambulatory subject supports the diagnosis of Diabetes Mellitus. Hematocrit Auto (Bld) [Volum e fraction]Ordered By: Marilyn Sun on 09-13-2022 Hematocrit (Bld) [Volume fraction] 38.3 % 34.0-46.4 [facility] Hemoglobin [Mass/volume] in BloodOrdered By: Marilyn Sun on 09-13-2022 Hemoglobin (Bld) [Mass/Vol] 12.7 g/dL 11.8-15.4 [facility] Laboratory - Chemistry and C hemistry - challengeOrdered By: Marilyn Sun on 09-13-2022 GFR/1.73 sq M.predicted MDRD (S/P/Bld) [Vol rate/Area] mL/min/{1.73_m2} [facility] Leukocytes [#/volume] correc jeffrey for nucleated erythrocytes in Blood by Automated counOrdered By: Marilyn Mejiaomar on 09-13-2022 WBC corrected for nucl RBC Auto (Bld) [#/Vol] 7.6 10*3/uL 3.8-11.6 [facility] Lymphocytes Auto (Bld) [#/Vo l]Ordered By: Obartur Mejiaomar on 09-13-2022 Lymphocytes (Bld) [#/Vol] 0.5 10*3/uL 1.00-4.8 [facility] Lymphocytes/100 WBC Auto (Bl d)Ordered By: Obartur Mejiaomar on 09-13-2022 Lymphocytes/100 WBC (Bld) 6.4 % . [facility] MCH Auto (RBC) [Entitic mass ]Ordered By: Marilyn Mejiaomar on 09-13-2022 MCH (RBC) [Entitic mass] 31.7 pg 24.7-34.3 [facility] MCHC Auto (RBC) [Mass/Vol]Or dered By: Obartur Mejiaomar on 09-13-2022 MCHC (RBC) [Mass/Vol] 33.1 g/dL 32.0-35.0 [facility] MCV Auto (RBC) [Entitic vol] Ordered By: Marilyn Mejiaomar on 09-13-2022 MCV (RBC) [Entitic vol] 95.9 fL 80-100 [facility] Monocytes Auto (Bld) [#/Vol] Ordered By: Marilyn Mejiaomar on 09-13-2022 Monocytes (Bld) [#/Vol] 0.3 10*3/uL 0.0-0.8 [facility] Monocytes/100 WBC Auto (Bld) Ordered By: Obsruthidacuca Mejiaomar on 09-13-2022 Monocytes/100 WBC (Bld) 3.8 % . [facility] Neutrophils Auto (Bld) [#/Vo l]Ordered By: Obartur Mejiaomar on 09-13-2022 Neutrophils (Bld) [#/Vol] 6.8 10*3/uL 1.8-7.7 [facility] Neutrophils/100 WBC Auto (Bl d)Ordered By: Marilyn Sun on 09-13-2022 Neutrophils/100 WBC (Bld) 89.6 % . [facility] No Panel InformationOrdered By: José Sanchez on 09-13-2022 Bedside Glucose Comment Glu2: cleaned meter [facility] No Panel InformationOrdered By: Marilyn Sun on 09-13-2022 Pharmacy Creatinine Clearance (Chem 104.67 [facility] Nucleated erythrocytes [Pres ence] in Blood by Automated countOrdered By: Marilyn Sun on 09-13-2022 Nucleated RBC Auto Ql (Bld) 0.0 /100{WBC} 0-0.5 [facility] Platelet mean volume Auto (B ld) [Entitic vol]Ordered By: Marilyn Sun on 09-13-2022 Platelet mean volume (Bld) [Entitic vol] 7.5 fL 6.3-10.7 [facility] Platelets Auto (Bld) [#/Vol] Ordered By: Marilyn Sun on 09-13-2022 Platelets (Bld) [#/Vol] 201 10*3/uL 150-450 [facility] Potassium [Moles/volume] in Serum or PlasmaOrdered By: Marilyn Sun on 09-13-2022 Potassium [Moles/Vol] 4.5 mmol/L 3.5-5.1 [facility] Protein [Mass/volume] in Ser um or PlasmaOrdered By: Marilyn Sun on 09-13-2022 Protein [Mass/Vol] 7.3 g/dL 6.4-8.9 [facility] RBC Auto (Bld) [#/Vol]Ordere d By: Marilyn Mejiaomar on 09-13-2022 RBC (Bld) [#/Vol] 4.00 10*6/uL 3.60-5.00 [facility] Redraw Potassiumon Potassium [Moles/Vol] 4.5 mmol/L Normal 3.5-5.1 [facility] Comment on above: Order Comment: FIRST SPECMEN HEMOLYZED Result Comment: PERF ORMED BY: [place] [address] PATHOLOGIST INSTRUMENT SPECIALIST EZRA MCCLAIN M.D. Performed By: #### G LUGI #### Point of Care testing , Serum or plasma albumin/glob ulin mass ratioOrdered By: Marilyn Mejiaomar on 09-13-2022 Albumin/Globulin [Mass ratio] 1.7 {ratio} [facility] Serum or plasma anion gap de terminationOrdered By: Obsruthidacuca Daromar on 09-13-2022 Anion gap [Moles/Vol] TNP [facility] Comment on above: Test not performed Sodium [Moles/volume] in Ser um or PlasmaOrdered By: Obsruthidacuca Daromar on 09-13-2022 Sodium [Moles/Vol] 134 mmol/L 136-145 [facility] Urea nitrogen [Mass/volume] in Serum or PlasmaOrdered By: Obsruthidacuca Daromar on 09-13-2022 Urea nitrogen [Mass/Vol] 37 mg/dL 7-25 [facility] WBC Auto (Bld) [#/Vol]Ordere d By: Obsruthidacuca Mejiaomar on 09-13-2022 WBC (Bld) [#/Vol] 7.6 10*3/uL 3.8-11.6 [facility] Complete Blood Count Auto Di ffon 09-12-2022 Basophils (Bld) [#/Vol] 0.0 10*3/uL Normal 0.0-0.2 [facility] Comment on above: Result Comment: PERF ORMED BY: [place] [address] PATHOLOGIST INSTRUMENT SPECIALIST EZRA MCCLAIN M.D. Performed By: #### H S TROP #### [facility] [address] [place] [address] [place] Basophils/100 WBC (Bld) 0.2 % Normal . [facility] Comment on above: Performed By: #### H S TROP #### [facility] [address] [place] [address] [place] Eosinophils (Bld) [#/Vol] 0.0 10*3/uL Normal 0.0-0.45 [facility] Comment on above: Performed By: #### H S TROP #### [address] Eosinophils/100 WBC (Bld) 0.0 % Normal . [facility] Comment on above: Performed By: #### H S TROP #### [address] Erythrocyte distribution width (RBC) [Ratio] 17.5 % High 11.9-15.3 [facility] Comment on above: Performed By: #### H S TROP #### [address] Hematocrit (Bld) [Volume fraction] 36.3 % Normal 34.0-46.4 [facility] Comment on above: Performed By: #### H S TROP #### [address] Hemoglobin (Bld) [Mass/Vol] 12.0 g/dL Normal 11.8-15.4 [facility] Comment on above: Performed By: #### H S TROP #### [address] Lymphocytes (Bld) [#/Vol] 0.3 10*3/uL Low 1.00-4.8 [facility] Comment on above: Performed By: #### H S TROP #### [address] Lymphocytes/100 WBC (Bld) 4.1 % Normal . [facility] Comment on above: Performed By: #### H S TROP #### [address] MCH (RBC) [Entitic mass] 31.7 pg Normal 24.7-34.3 [facility] Comment on above: Performed By: #### H S TROP #### [address] MCV (RBC) [Entitic vol] 95.9 fL Normal 80-100 [facility] Comment on above: Performed By: #### H S TROP #### [facility] [address] Mean Corpuscular HGB Conc 33.1 g/dL Normal 32.0-35.0 [facility] Comment on above: Performed By: #### H S TROP #### [facility] [address] [place] [address] [place] Monocytes (Bld) [#/Vol] 0.3 10*3/uL Normal 0.0-0.8 [facility] Comment on above: Performed By: #### H S TROP #### [place] [address] [place] Monocytes/100 WBC (Bld) 3.8 % Normal . [facility] Comment on above: Performed By: #### H S TROP #### [address] Neutrophils (Bld) [#/Vol] 6.3 10*3/uL Normal 1.8-7.7 [facility] Comment on above: Performed By: #### H S TROP #### [place] [address] [place] Neutrophils/100 WBC (Bld) 91.9 % Normal . [facility] Comment on above: Performed By: #### H S TROP #### [address] NRBC% 0.0 /100{WBC} Normal 0-0.5 [facility] Comment on above: Performed By: #### H S TROP #### [place] [address] [place] Platelet mean volume (Bld) [Entitic vol] 7.5 fL Normal 6.3-10.7 [facility] Comment on above: Performed By: #### H S TROP #### [place] [address] [place] Platelets (Bld) [#/Vol] 177 10*3/uL Normal 150-450 [facility] Comment on above: Performed By: #### H S TROP #### [facility] [address] [place] [address] RBC (Bld) [#/Vol] 3.79 10*6/uL Normal 3.60-5.00 [facility] Comment on above: Performed By: #### H S TROP #### [address] WBC (Bld) [#/Vol] 6.8 10*3/uL Normal 3.8-11.6 [facility] Comment on above: Performed By: #### H S TROP #### [address] Comprehensive Metabolic Pane usman 09-12-2022 Albumin [Mass/Vol] 4.1 g/dL Normal 3.5-5.7 [facility] Comment on above: Performed By: #### H S TROP #### [address] Albumin/Globulin [Mass ratio] 1.6 {ratio} Normal [facility] Comment on above: Performed By: #### H S TROP #### [address] ALP [Catalytic activity/Vol] 101 U/L Normal 34-104 [facility] Comment on above: Performed By: #### H S TROP #### [address] ALT [Catalytic activity/Vol] 45 U/L Normal 7-52 [facility] Comment on above: Performed By: #### H S TROP #### [address] Anion gap [Moles/Vol] 12.8 mmol/L Normal 6.0-15.0 [facility] Comment on above: Performed By: #### H S TROP #### [address] AST [Catalytic activity/Vol] 55 U/L High 13-39 [facility] Comment on above: Performed By: #### H S TROP #### [place] [address] [place] Bilirubin [Mass/Vol] 0.4 mg/dL Normal 0.3-1.0 [facility] Comment on above: Performed By: #### H S TROP #### [facility] [address] Calcium [Mass/Vol] 8.8 mg/dL Normal 8.6-10.3 [facility] Comment on above: Performed By: #### H S TROP #### [facility] [address] Chloride [Moles/Vol] 96 mmol/L Low 98-107 [facility] Comment on above: Performed By: #### H S TROP #### [address] CO2 [Moles/Vol] 28.8 mmol/L Normal 21.0-31.0 [facility] Comment on above: Performed By: #### H S TROP #### [facility] [address] [place] [address] Creatinine [Mass/Vol] 0.90 mg/dL Normal 0.60-1.20 [facility] Comment on above: Performed By: #### H S TROP #### [facility] [address] [place] [address] Creatinine Clr Calc Pharmacy 100.98 [facility] Comment on above: Result Comment: PERF ORMED BY: [place] [address] PATHOLOGIST INSTRUMENT SPECIALIST EZRA MCCLAIN M.D. Performed By: #### H S TROP #### [facility] [address] [place] [address] GFR/1.73 sq M.predicted MDRD (S/P/Bld) [Vol rate/Area] mL/min/{1.73_m2} [facility] Comment on above: Performed By: #### H S TROP #### [facility] [address] [place] [address] Globulin (S) [Mass/Vol] 2.5 g/dL [facility] Comment on above: Performed By: #### H S TROP #### [facility] [address] [place] [address] [place] Glucose [Mass/Vol] 289 mg/dL High 74-109 [facility] Comment on above: Result Comment: [place] om Glucose Reference Range is dependent on time and content of last meal. Glucose of more than 200 mg/dL in a nonstressed, ambulatory subject supports the diagnosis of Diabetes Mellitus. ADA recommended reference range Performed By: #### H S TROP #### [facility] [address] Potassium [Moles/Vol] 4.6 mmol/L Normal 3.5-5.1 [facility] Comment on above: Performed By: #### H S TROP #### [address] Protein [Mass/Vol] 6.6 g/dL Normal 6.4-8.9 [facility] Comment on above: Performed By: #### H S TROP #### [address] Sodium [Moles/Vol] 133 mmol/L Low 136-145 [facility] Comment on above: Performed By: #### H S TROP #### [address] Urea nitrogen [Mass/Vol] 29 mg/dL High 7-25 [facility] Comment on above: Performed By: #### H S TROP #### [place] [address] [place] Glucose Poct Glucometerson 0 09-12-2022 Commemt1 Glu2: Cleaned Meter Normal [facility] Comment on above: Result Comment: PERF ORMED BY: [place] [address] PATHOLOGIST INSTRUMENT SPECIALIST EZRA MCCLAIN M.D. Performed By: #### C MP, CBC #### [facility] [address] [place] [address] [place] Glucose [Mass/Vol] 203 mg/dL Normal [facility] Comment on above: Result Comment: [place] om Glucose Reference Range is dependent on time and content of last meal. Glucose of more than 200 mg/dL in a nonstressed, ambulatory subject supports the diagnosis of Diabetes Mellitus. Performed By: #### C MP, CBC #### [address] Commemt1 Glu2: Cleaned Meter [facility] Comment on above: Result Comment: PERF ORMED BY: [place] [address] PATHOLOGIST INSTRUMENT SPECIALIST EZRA MCCLAIN M.D. Performed By: #### G LULS #### Point of Care testing , Glucose [Mass/Vol] 331 mg/dL Normal [facility] Comment on above: Result Comment: [place] om Glucose Reference Range is dependent on time and content of last meal. Glucose of more than 200 mg/dL in a nonstressed, ambulatory subject supports the diagnosis of Diabetes Mellitus. Performed By: #### G LULS #### Point of Care testing , Commemt1 Glu2: Cleaned Meter [facility] Comment on above: Result Comment: PERF ORMED BY: [place] [address] PATHOLOGIST INSTRUMENT SPECIALIST EZRA MCCLAIN M.D. Performed By: #### C MP, CBC #### [address] Glucose [Mass/Vol] 282 mg/dL Normal [facility] Comment on above: Result Comment: [place] om Glucose Reference Range is dependent on time and content of last meal. Glucose of more than 200 mg/dL in a nonstressed, ambulatory subject supports the diagnosis of Diabetes Mellitus. Performed By: #### C MP, CBC #### [facility] [address] [place] [address] Commemt1 Glu2: Cleaned Meter [facility] Comment on above: Result Comment: PERF ORMED BY: [place] [address] PATHOLOGIST INSTRUMENT SPECIALIST EZRA MCCLAIN M.D. Performed By: #### C MP, CBC #### [address] Glucose [Mass/Vol] 219 mg/dL Normal [facility] Comment on above: Result Comment: [facility] Glucose Reference Range is dependent on time and content of last meal. Glucose of more than 200 mg/dL in a nonstressed, ambulatory subject supports the diagnosis of Diabetes Mellitus. Performed By: #### C MP, CBC #### [address] Complete Blood Count Auto Di ffon 09-11-2022 Basophils (Bld) [#/Vol] 0.1 10*3/uL Normal 0.0-0.2 [facility] Comment on above: Result Comment: PERF ORMED BY: [place] [address] PATHOLOGIST INSTRUMENT SPECIALIST EZRA MCCLAIN M.D. Performed By: #### C MP, CBC #### [address] Basophils/100 WBC (Bld) 1.1 % Normal . [facility] Comment on above: Performed By: #### C MP, CBC #### [address] Eosinophils (Bld) [#/Vol] 0.0 10*3/uL Normal 0.0-0.45 [facility] Comment on above: Performed By: #### C MP, CBC #### [address] Eosinophils/100 WBC (Bld) 0.0 % Normal . [facility] Comment on above: Performed By: #### C MP, CBC #### [address] Erythrocyte distribution width (RBC) [Ratio] 17.5 % High 11.9-15.3 [facility] Comment on above: Performed By: #### C MP, CBC #### [address] Hematocrit (Bld) [Volume fraction] 38.9 % Normal 34.0-46.4 [facility] Comment on above: Performed By: #### C MP, CBC #### [facility] [address] Hemoglobin (Bld) [Mass/Vol] 12.7 g/dL Normal 11.8-15.4 [facility] Comment on above: Performed By: #### C MP, CBC #### [facility] [address] Lymphocytes (Bld) [#/Vol] 0.3 10*3/uL Low 1.00-4.8 [facility] Comment on above: Performed By: #### C MP, CBC #### [facility] [address] Lymphocytes/100 WBC (Bld) 4.7 % Normal . [facility] Comment on above: Performed By: #### C MP, CBC #### [facility] [address] MCH (RBC) [Entitic mass] 31.7 pg Normal 24.7-34.3 [facility] Comment on above: Performed By: #### C MP, CBC #### [facility] [address] MCV (RBC) [Entitic vol] 96.7 fL Normal 80-100 [facility] Comment on above: Performed By: #### C MP, CBC #### [facility] [address] Mean Corpuscular HGB Conc 32.8 g/dL Normal 32.0-35.0 [facility] Comment on above: Performed By: #### C MP, CBC #### [facility] [address] [place] [address] [place] Monocytes (Bld) [#/Vol] 0.1 10*3/uL Normal 0.0-0.8 [facility] Comment on above: Performed By: #### C MP, CBC #### [facility] [address] [place] [address] [place] Monocytes/100 WBC (Bld) 0.9 % Normal . [facility] Comment on above: Performed By: #### C MP, CBC #### [facility] [address] [place] [address] [place] Neutrophils (Bld) [#/Vol] 6.0 10*3/uL Normal 1.8-7.7 [facility] Comment on above: Performed By: #### C MP, CBC #### [facility] [address] [place] [address] [place] Neutrophils/100 WBC (Bld) 93.3 % Normal . [facility] Comment on above: Performed By: #### C MP, CBC #### [facility] [address] NRBC% 0.2 /100{WBC} Normal 0-0.5 [facility] Comment on above: Performed By: #### C MP, CBC #### [facility] [address] Platelet mean volume (Bld) [Entitic vol] 7.5 fL Normal 6.3-10.7 [facility] Comment on above: Performed By: #### C MP, CBC #### [facility] [address] [place] [address] [place] Platelets (Bld) [#/Vol] 185 10*3/uL Normal 150-450 [facility] Comment on above: Performed By: #### C MP, CBC #### [facility] [address] [place] [address] [place] RBC (Bld) [#/Vol] 4.02 10*6/uL Normal 3.60-5.00 [facility] Comment on above: Performed By: #### C MP, CBC #### [facility] [address] [place] [address] [place] WBC (Bld) [#/Vol] 6.4 10*3/uL Normal 3.8-11.6 [facility] Comment on above: Performed By: #### C MP, CBC #### [facility] [address] Comprehensive Metabolic Pane usman 09-11-2022 Albumin [Mass/Vol] 4.5 g/dL Normal 3.5-5.7 [facility] Comment on above: Performed By: #### C MP, CBC #### [facility] [address] Albumin/Globulin [Mass ratio] 1.5 {ratio} Normal [facility] Comment on above: Performed By: #### C MP, CBC #### [facility] [address] ALP [Catalytic activity/Vol] 130 U/L High 34-104 [facility] Comment on above: Performed By: #### C MP, CBC #### [facility] [address] ALT [Catalytic activity/Vol] 59 U/L High 7-52 [facility] Comment on above: Performed By: #### C MP, CBC #### [facility] [address] Anion gap [Moles/Vol] Not performed Normal 6.0-15.0 [facility] Comment on above: Performed By: #### C MP, CBC #### [facility] [address] AST [Catalytic activity/Vol] 90 U/L High 13-39 [facility] Comment on above: Performed By: #### C MP, CBC #### [facility] [address] Bilirubin [Mass/Vol] 0.5 mg/dL Normal 0.3-1.0 [facility] Comment on above: Performed By: #### C MP, CBC #### [facility] [address] Calcium [Mass/Vol] 9.3 mg/dL Normal 8.6-10.3 [facility] Comment on above: Performed By: #### C MP, CBC #### [facility] [address] Chloride [Moles/Vol] 94 mmol/L Low 98-107 [facility] Comment on above: Performed By: #### C MP, CBC #### [facility] [address] CO2 [Moles/Vol] 28.7 mmol/L Normal 21.0-31.0 [facility] Comment on above: Performed By: #### C MP, CBC #### [facility] [address] Creatinine [Mass/Vol] 0.87 mg/dL Normal 0.60-1.20 [facility] Comment on above: Performed By: #### C MP, CBC #### [facility] [address] Creatinine Clr Calc Pharmacy 104.46 Normal [facility] Comment on above: Result Comment: PERF ORMED BY: [place] [address] PATHOLOGIST INSTRUMENT SPECIALIST EZRA MCCLAIN M.D. Performed By: #### C MP, CBC #### [address] GFR/1.73 sq M.predicted MDRD (S/P/Bld) [Vol rate/Area] mL/min/{1.73_m2} Normal [facility] Comment on above: Performed By: #### C MP, CBC #### [address] Globulin (S) [Mass/Vol] 3.0 g/dL Normal [facility] Comment on above: Performed By: #### C MP, CBC #### [address] Glucose [Mass/Vol] 222 mg/dL Significant change up 74-109 [facility] Comment on above: Result Comment: [place] Glucose Reference Range is dependent on time and content of last meal. Glucose of more than 200 mg/dL in a nonstressed, ambulatory subject supports the diagnosis of Diabetes Mellitus. ADA recommended reference range Performed By: #### C MP, CBC #### [address] Potassium Normal 3.5-5.1 [facility] Comment on above: Result Comment: Spec imen hemolyzed, redraw requested Performed By: #### C MP, CBC #### [facility] [address] Protein [Mass/Vol] 7.5 g/dL Normal 6.4-8.9 [facility] Comment on above: Performed By: #### C MP, CBC #### [facility] [address] Sodium [Moles/Vol] 135 mmol/L Low 136-145 [facility] Comment on above: Performed By: #### C MP, CBC #### [facility] [address] Urea nitrogen [Mass/Vol] 28 mg/dL High 7-25 [facility] Comment on above: Performed By: #### C MP, CBC #### [address] [facility] echo transthoracicon [facility] echo transthoracic [facility] Main [place] [address] [place] [address] Echocardiogram Signed Patient: Carmen Bledsoe MR#: [id number] 9 : 1960 Acct:[id number] Age/Sex: 61 / F ADM Date: 09/10/22 Loc: Room: [address] [place] [address] Type: ADM IN Attending Dr: Marilyn Sun [...] Signed By: Maikol Siddiqui MD 09/11/22 1155 [facility] Glucose Poct Glucometerson 0 09-11-2022 Commemt1 Glu2: Cleaned Meter [facility] Comment on above: Result Comment: PERF ORMED BY: [place] [address] PATHOLOGIST INSTRUMENT SPECIALIST EZRA MCCLAIN M.D. Performed By: #### C MP, CBC #### [facility] [address] Glucose [Mass/Vol] 236 mg/dL Normal [facility] Comment on above: Result Comment: [place] om Glucose Reference Range is dependent on time and content of last meal. Glucose of more than 200 mg/dL in a nonstressed, ambulatory subject supports the diagnosis of Diabetes Mellitus. Performed By: #### C MP, CBC #### [facility] [address] [place] [address] [place] Glucose [Mass/Vol] 289 mg/dL Normal [facility] Comment on above: Result Comment: [place] om Glucose Reference Range is dependent on time and content of last meal. Glucose of more than 200 mg/dL in a nonstressed, ambulatory subject supports the diagnosis of Diabetes Mellitus. PERFORMED BY: [facility] [address] [place] [address] PATHOLOGIST INSTRUMENT SPECIALIST EZRA MCCLAIN M.D. Performed By: #### H S TROP #### [place] [address] [place] Glucose [Mass/Vol] 297 mg/dL Normal [facility] Comment on above: Result Comment: [place] om Glucose Reference Range is dependent on time and content of last meal. Glucose of more than 200 mg/dL in a nonstressed, ambulatory subject supports the diagnosis of Diabetes Mellitus. PERFORMED BY: [place] [address] PATHOLOGIST INSTRUMENT SPECIALIST EZRA MCCLAIN M.D. Performed By: #### C MP, CBC #### [place] [address] [place] Glucose [Mass/Vol] 226 mg/dL Normal [facility] Comment on above: Result Comment: [place] om Glucose Reference Range is dependent on time and content of last meal. Glucose of more than 200 mg/dL in a nonstressed, ambulatory subject supports the diagnosis of Diabetes Mellitus. PERFORMED BY: [place] [address] PATHOLOGIST INSTRUMENT SPECIALIST EZRA MCCLAIN M.D. Performed By: #### G LULS #### Point of Care testing , Redraw Potassiumon 3 Potassium [Moles/Vol] 4.5 mmol/L Normal 3.5-5.1 [facility] Comment on above: Result Comment: PERF ORMED BY: [place] [address] PATHOLOGIST INSTRUMENT SPECIALIST EZRA MCCLAIN M.D. Performed By: #### H S TROP #### [place] [address] [place] Troponin I High Sensitivityo n 09-11-2022 Troponin I High Sensitivity 5.3 pg/mL Normal 0.0-15.0 [facility] Comment on above: Result Comment: PERF ORMED BY: [place] [address] PATHOLOGIST INSTRUMENT SPECIALIST EZRA MCCLAIN M.D. Performed By: #### C MP, CBC #### [facility] [address] A1C with Estimated Average G radhan 09-10-2022 Glucose [Mass/Vol] 128 mg/dL Normal [facility] Comment on above: Order Comment: Comme nt add on Result Comment: PERF ORMED BY: [place] [address] PATHOLOGIST INSTRUMENT SPECIALIST EZRA MCCLAIN M.D. Performed By: #### C MP, CBC #### [facility] [address] HbA1c (Bld) [Mass fraction] 6.1 % High 4.3-5.6 [facility] Comment on above: Order Comment: Comme nt add on Result Comment: Incr eased risk for diabetes: 5.7 - 6.4 diabetes: >6.4 glycemic control for adults with diabetes: <7.0 Performed By: #### C MP, CBC #### [facility] [address] [place] [address] Activated partial thrombopla stin time (aPTT) in platelet poor plasma by coagulation aOrdered By: Joo Ramos on 09-10-2022 aPTT Coag (PPP) [Time] 31.2 s 25.1-36.5 [facility] Alanine aminotransferase [En zymatic activity/volume] in Serum or PlasmaOrdered By: Joo Ramos on 09-10-2022 ALT [Catalytic activity/Vol] 50 U/L 7-52 [facility] Albumin [Mass/volume] in Ser um or Plasma by Bromocresol green (BCG) dye binding methoOrdered By: Joo Ramos on 09-10-2022 Albumin BCG dye [Mass/Vol] 4.4 g/dL 3.5-5.7 [facility] Alkaline phosphatase [Enzyma tic activity/volume] in Serum or PlasmaOrdered By: Joo Ramos on 09-10-2022 ALP [Catalytic activity/Vol] 121 U/L 34-104 [facility] Aspartate aminotransferase [ Enzymatic activity/volume] in Serum or PlasmaOrdered By: Joo Ramos on 09-10-2022 AST [Catalytic activity/Vol] 71 U/L 13-39 [facility] B-Type Natriuretic Peptideon 09-10-2022 Natriuretic peptide B (Bld) [Mass/Vol] 6.0 pg/mL Normal 5-100 [facility] Comment on above: Result Comment: PERF ORMED BY: [place] [address] PATHOLOGIST INSTRUMENT SPECIALIST EZRA MCCLAIN M.D. Performed By: #### C MP, CBC #### [facility] [address] Basic Metabolic Panelon 09-01 Anion gap [Moles/Vol] 13.7 mmol/L Normal 6.0-15.0 [facility] Comment on above: Performed By: #### C MP, CBC #### [facility] [address] Calcium [Mass/Vol] 9.6 mg/dL Normal 8.6-10.3 [facility] Comment on above: Performed By: #### C MP, CBC #### [facility] [address] [place] [address] [place] Chloride [Moles/Vol] 99 mmol/L Normal 98-107 [facility] Comment on above: Performed By: #### C MP, CBC #### [facility] [address] CO2 [Moles/Vol] 29.0 mmol/L Normal 21.0-31.0 [facility] Comment on above: Performed By: #### C MP, CBC #### [facility] [address] [place] [address] [place] Creatinine [Mass/Vol] 0.83 mg/dL Normal 0.60-1.20 [facility] Comment on above: Performed By: #### C MP, CBC #### [facility] [address] [place] [address] [place] Creatinine Clr Calc Pharmacy 109.50 Normal [facility] Comment on above: Result Comment: PERF ORMED BY: [facility] [address] [place] [address] PATHOLOGIST INSTRUMENT SPECIALIST EZRA MCCLAIN M.D. Performed By: #### C MP, CBC #### [place] [address] [place] GFR/1.73 sq M.predicted MDRD (S/P/Bld) [Vol rate/Area] mL/min/{1.73_m2} Normal [facility] Comment on above: Performed By: #### C MP, CBC #### [address] Glucose [Mass/Vol] 91 mg/dL Normal 74-109 [facility] Comment on above: Result Comment: [facility] Glucose Reference Range is dependent on time and content of last meal. Glucose of more than 200 mg/dL in a nonstressed, ambulatory subject supports the diagnosis of Diabetes Mellitus. ADA recommended reference range Performed By: #### C MP, CBC #### [address] Potassium [Moles/Vol] 4.7 mmol/L Normal 3.5-5.1 [facility] Comment on above: Performed By: #### C MP, CBC #### [address] Sodium [Moles/Vol] 137 mmol/L Normal 136-145 [facility] Comment on above: Performed By: #### C MP, CBC #### [address] Urea nitrogen [Mass/Vol] 24 mg/dL Normal 7-25 [facility] Comment on above: Performed By: #### C MP, CBC #### [place] [address] [place] Basophils Auto (Bld) [#/Vol] Ordered By: Joo Ramos on 09-10-2022 Basophils (Bld) [#/Vol] 0.1 10*3/uL 0.0-0.2 [facility] Basophils/100 WBC Auto (Bld) Ordered By: Joo Ramos on 09-10-2022 Basophils/100 WBC (Bld) 1.1 % . [facility] Bilirubin Test strip Ql (U)O rdered By: Joo Ramos on 09-10-2022 Bilirubin Ql (U) Negative Negative [facility] Bilirubin.direct [Mass/volum e] in Serum or PlasmaOrdered By: Joo Ramos on 09-10-2022 Bilirubin.direct [Mass/Vol] 0.10 mg/dL 0.03-0.18 [facility] Bilirubin.total [Mass/volume ] in Serum or PlasmaOrdered By: Joo Ramos on 09-10-2022 Bilirubin [Mass/Vol] 0.4 mg/dL 0.3-1.0 [facility] BioFire Not Detectedon 09-10 BioFire Not Detected Not detected Normal Not Detecte [facility] Comment on above: Result Comment: This is a duplicate RP2.1 COVID (PCR) result to be used for statistical tracking purpose only. PERFORMED BY: [place] [address] PATHOLOGIST INSTRUMENT SPECIALIST EZRA MCCLAIN M.D. Performed By: #### C MP, CBC #### [address] COVID-19 Detected/Not Detect edOrdered By: Marilyn Sun on 09-10-2022 SARS-CoV-2 (COVID-19) RNA TERESO+non-probe Ql (Nph) Not detected Not Detecte [facility] Comment on above: This is a duplicate RP2.1 COVID (PCR) result to be used for statistical tracking purpose only. Calcium [Mass/volume] in Ser um or PlasmaOrdered By: Joo Ramos on 09-10-2022 Calcium [Mass/Vol] 9.6 mg/dL 8.6-10.3 [facility] Carbon dioxide, total [Moles /volume] in Serum or PlasmaOrdered By: Joo Ramos on 09-10-2022 CO2 [Moles/Vol] 29.0 mmol/L 21.0-31.0 [facility] Chloride [Moles/volume] in S caitlyn or PlasmaOrdered By: Joo Ramos on 09-10-2022 Chloride [Moles/Vol] 99 mmol/L 98-107 [facility] Cholesterol [Mass/volume] in Serum or PlasmaOrdered By: Marilyn Sun on 09-10-2022 Cholesterol [Mass/Vol] 169 mg/dL 140-200 [facility] Comment on above: Chol less than 200 m g/dl low riskChol 201-239 mg/dl borderline riskChol 240 mg/dl and greater high risk Cholesterol in LDL Calc [Mas s/Vol]Ordered By: Marilyn Sun on 09-10-2022 Cholesterol in LDL [Mass/Vol] 62 mg/dL 0-100 [facility] Comment on above: LDL ATP III CLASSIFI CATIONLDL less than 100 mg/dL OptimalLDL 100-129 mg/dL Near or above optimalLDL 130-159 mg/dL Borderline highLDL 160-189 mg/dL HighLDL greater than 189 mg/dL Very high Cholesterol in VLDL Calc [Ma ss/Vol]Ordered By: Marilyn Sun on 09-10-2022 Cholesterol in VLDL [Mass/Vol] 34 mg/dL [facility] Color Auto (U)Ordered By: Tod Ramos on 09-10-2022 Color (U) Yellow Yellow [facility] Complete Blood Count Auto Di ffon 09-10-2022 Basophils (Bld) [#/Vol] 0.1 10*3/uL Normal 0.0-0.2 [facility] Comment on above: Result Comment: PERF ORMED BY: [place] [address] PATHOLOGIST INSTRUMENT SPECIALIST EZRA MCCLAIN M.D. Performed By: #### C MP, CBC #### [facility] [address] [place] [address] Basophils/100 WBC (Bld) 1.1 % Normal . [facility] Comment on above: Performed By: #### C MP, CBC #### [facility] [address] [place] [address] [place] Eosinophils (Bld) [#/Vol] 0.1 10*3/uL Normal 0.0-0.45 [facility] Comment on above: Performed By: #### C MP, CBC #### [facility] [address] Eosinophils/100 WBC (Bld) 1.6 % Normal . [facility] Comment on above: Performed By: #### C MP, CBC #### [address] Erythrocyte distribution width (RBC) [Ratio] 17.5 % High 11.9-15.3 [facility] Comment on above: Performed By: #### C MP, CBC #### [address] Hematocrit (Bld) [Volume fraction] 37.7 % Normal 34.0-46.4 [facility] Comment on above: Performed By: #### C MP, CBC #### [address] Hemoglobin (Bld) [Mass/Vol] 12.5 g/dL Normal 11.8-15.4 [facility] Comment on above: Performed By: #### C MP, CBC #### [address] Lymphocytes (Bld) [#/Vol] 1.1 10*3/uL Normal 1.00-4.8 [facility] Comment on above: Performed By: #### C MP, CBC #### [address] Lymphocytes/100 WBC (Bld) 21.5 % Normal . [facility] Comment on above: Performed By: #### C MP, CBC #### [address] MCH (RBC) [Entitic mass] 31.8 pg Normal 24.7-34.3 [facility] Comment on above: Performed By: #### C MP, CBC #### [address] MCV (RBC) [Entitic vol] 96.1 fL Normal 80-100 [facility] Comment on above: Performed By: #### C MP, CBC #### [address] Mean Corpuscular HGB Conc 33.1 g/dL Normal 32.0-35.0 [facility] Comment on above: Performed By: #### C MP, CBC #### [facility] [address] [place] [address] [place] Monocytes (Bld) [#/Vol] 0.3 10*3/uL Normal 0.0-0.8 [facility] Comment on above: Performed By: #### C MP, CBC #### [facility] [address] [place] [address] [place] Monocytes/100 WBC (Bld) 18.14 % Normal 0.00-20.00 [facility] Comment on above: Performed By: #### C MP, CBC #### [place] [address] [place] Monocytes/100 WBC (Bld) 5.1 % Normal . [facility] Comment on above: Performed By: #### C MP, CBC #### [facility] [address] [place] [address] [place] Neutrophils (Bld) [#/Vol] 3.7 10*3/uL Normal 1.8-7.7 [facility] Comment on above: Performed By: #### C MP, CBC #### [place] [address] [place] Neutrophils/100 WBC (Bld) 70.7 % Normal . [facility] Comment on above: Performed By: #### C MP, CBC #### [facility] [address] [place] [address] [place] NRBC% 0.3 /100{WBC} Normal 0-0.5 [facility] Comment on above: Performed By: #### C MP, CBC #### [place] [address] [place] Platelet mean volume (Bld) [Entitic vol] 7.2 fL Normal 6.3-10.7 [facility] Comment on above: Performed By: #### C MP, CBC #### [place] [address] [place] Platelets (Bld) [#/Vol] 180 10*3/uL Normal 150-450 [facility] Comment on above: Performed By: #### C MP, CBC #### [facility] [address] [place] [address] RBC (Bld) [#/Vol] 3.92 10*6/uL Normal 3.60-5.00 [facility] Comment on above: Performed By: #### C MP, CBC #### [facility] [address] [place] [address] WBC (Bld) [#/Vol] 5.2 10*3/uL Normal 3.8-11.6 [facility] Comment on above: Performed By: #### C MP, CBC #### [address] Creatine Kinaseon 09-10-2022 CK [Catalytic activity/Vol] 39 U/L Normal 30-223 [facility] Comment on above: Performed By: #### C MP, CBC #### [address] Creatine kinase [Enzymatic a ctivity/volume] in Serum or PlasmaOrdered By: Joo Ramos on 09-10-2022 CK [Catalytic activity/Vol] 39 U/L 30-223 [facility] Creatinine [Mass/volume] in Serum or PlasmaOrdered By: Joo Ramos on 09-10-2022 Creatinine [Mass/Vol] 0.83 mg/dL 0.60-1.20 [facility] ECG 12 lead ECGon 09-10-2022 ECG 12 lead ECG [facility] Main [place] [address] [place] [address] Electrocardiograph Report Signed Patient: Carmen Bledsoe MR#: [id number] 9 : 1960 Acct:[id number] Age/Sex: 61 / F ADM Date: 09/10/22 Loc: Room: [address] [place] [address] Type: ADM IN Attending Dr: Marilyn Sun [...] By Maikol Siddiqui MD 0 09/11/22 0653 [facility] ECG 12 lead ECG [facility] [place] [address] Electrocardiograph Report Signed Patient: Carmen Bledsoe MR#: [id number] 9 : 1960 Acct:[id number] Age/Sex: 61 / F ADM Date: 09/10/22 Loc: Room: [address] [place] [address] Type: ADM IN Attending Dr: Marilyn Sun [...] ECGs available Confirmed by Joo Ramos DO ([id number]) on 09/10/2022 6:56:24 PM Referred By: Electronically Signed By:Joo Ramos DO Transcribed By: MANUEL Signed By Joo Ramos DO 3 1856 [facility] Eosinophils Auto (Bld) [#/Vo l]Ordered By: Joo Ramos on 09-10-2022 Eosinophils (Bld) [#/Vol] 0.1 10*3/uL 0.0-0.45 [facility] Eosinophils/100 WBC Auto (Bl d)Ordered By: Joo Ramos on 09-10-2022 Eosinophils/100 WBC (Bld) 1.6 % . [facility] Erythrocyte distribution wid th Auto (RBC) [Ratio]Ordered By: Joo Ramos on 09-10-2022 Erythrocyte distribution width (RBC) [Ratio] 17.5 % 11.9-15.3 [facility] Globulin Calc (S) [Mass/Vol] Ordered By: Joo Ramos on 09-10-2022 Globulin (S) [Mass/Vol] 2.7 g/dL [facility] Glucose Poct Glucometerson 0 09-10-2022 Glucose [Mass/Vol] 188 mg/dL Normal [facility] Comment on above: Result Comment: [facility] Glucose Reference Range is dependent on time and content of last meal. Glucose of more than 200 mg/dL in a nonstressed, ambulatory subject supports the diagnosis of Diabetes Mellitus. PERFORMED BY: [facility] [address] [place] [address] PATHOLOGIST INSTRUMENT SPECIALIST EZRA MCCLAIN M.D. Performed By: #### G LULS #### Point of Care testing , Glucose [Mass/Vol] 118 mg/dL Normal [facility] Comment on above: Result Comment: [facility] Glucose Reference Range is dependent on time and content of last meal. Glucose of more than 200 mg/dL in a nonstressed, ambulatory subject supports the diagnosis of Diabetes Mellitus. PERFORMED BY: [facility] [address] [facility] [place] [address] PATHOLOGIST INSTRUMENT SPECIALIST EZRA MCCLAIN M.D. Performed By: #### G LULS #### Point of Care testing , Glucose [Mass/volume] in Ser um or PlasmaOrdered By: Joo Ramos on 09-10-2022 Glucose [Mass/Vol] 91 mg/dL 74-109 [facility] Comment on above: ADA recommended refe rence rangeRandom Glucose Reference Range is dependent on time and content of last meal. Glucose of more than 200 mg/dL in a nonstressed, ambulatory subject supports the diagnosis of Diabetes Mellitus. Glucose mean value [Mass/vol ume] in Blood Estimated from glycated hemoglobinOrdered By: Marilyn Sun on 09-10-2022 Average glucose Estimated from glycated hemoglobin (Bld) [Mass/Vol] 128 mg/dL [facility] Hematocrit Auto (Bld) [Volum e fraction]Ordered By: Joo Ramos on 09-10-2022 Hematocrit (Bld) [Volume fraction] 37.7 % 34.0-46.4 [facility] Hemoglobin A1c percentageOrd ered By: Marilyn Sun on 09-10-2022 HbA1c (Bld) [Mass fraction] 6.1 % 4.3-5.6 [facility] Comment on above: Increased risk for d iabetes: 5.7 - 6.4diabetes: >6.4glycemic control for adults with diabetes: <7.0 Hemoglobin [Mass/volume] in BloodOrdered By: Joo Ramos on 09-10-2022 Hemoglobin (Bld) [Mass/Vol] 12.5 g/dL 11.8-15.4 [facility] Hepatic Panelon 09-10-2022 Albumin [Mass/Vol] 4.4 g/dL Normal 3.5-5.7 [facility] Comment on above: Performed By: #### C MP, CBC #### [facility] [address] Albumin/Globulin [Mass ratio] 1.6 {ratio} Normal [facility] Comment on above: Performed By: #### C MP, CBC #### [facility] [address] [place] [address] [place] ALP [Catalytic activity/Vol] 121 U/L High 34-104 [facility] Comment on above: Performed By: #### C MP, CBC #### [facility] [address] [place] [address] [place] ALT [Catalytic activity/Vol] 50 U/L Normal 7-52 [facility] Comment on above: Performed By: #### C MP, CBC #### [facility] [address] AST [Catalytic activity/Vol] 71 U/L High 13-39 [facility] Comment on above: Performed By: #### C MP, CBC #### [facility] [address] Bilirubin [Mass/Vol] 0.4 mg/dL Normal 0.3-1.0 [facility] Comment on above: Performed By: #### C MP, CBC #### [facility] [address] Bilirubin,Indirect 0.3 mg/dL Normal [facility] Comment on above: Performed By: #### C MP, CBC #### [facility] [address] Bilirubin.indirect [Mass/Vol] 0.10 mg/dL Normal 0.03-0.18 [facility] Comment on above: Performed By: #### C MP, CBC #### [address] Globulin (S) [Mass/Vol] 2.7 g/dL Normal [facility] Comment on above: Performed By: #### C MP, CBC #### [address] Protein [Mass/Vol] 7.1 g/dL Normal 6.4-8.9 [facility] Comment on above: Performed By: #### C MP, CBC #### [address] Ketones Auto test strip (U) [Mass/Vol]Ordered By: Joo Ramos on 09-10-2022 Ketones (U) [Mass/Vol] Negative Negative [facility] Laboratory - Chemistry and C hemistry - challengeOrdered By: Joo Ramos on 09-10-2022 GFR/1.73 sq M.predicted MDRD (S/P/Bld) [Vol rate/Area] mL/min/{1.73_m2} [facility] Laboratory - CoagulationOrde red By: Joo Ramos on 09-10-2022 PT Coag (PPP) [Time] 11.8 s 9.0-12.9 [facility] Leukocytes [#/volume] correc jeffrey for nucleated erythrocytes in Blood by Automated counOrdered By: Joo Ramos on 09-10-2022 WBC corrected for nucl RBC Auto (Bld) [#/Vol] 5.2 10*3/uL 3.8-11.6 [facility] Lipid Panelon 09-10-2022 Cholesterol [Mass/Vol] 169 mg/dL Normal 140-200 [facility] Comment on above: Order Comment: Comme nt add on Result Comment: Chol less than 200 mg/dl low risk Chol 201-239 mg/dl borderline risk Chol 240 mg/dl and greater high risk Performed By: #### C MP, CBC #### [facility] [address] [place] [id number] [facility] Cholesterol in HDL [Mass/Vol] 73 mg/dL Normal 35-85 [facility] Comment on above: Order Comment: Comme nt add on Result Comment: HDL CHOL ATP-III CLASSIFICATION Cardiovascular Risk HDL > or equal to 60 mg/dL LOW HDL < 40 mg/dL HIGH Performed By: #### C MP, CBC #### [facility] [address] [place] [address] [facility] Cholesterol.total/Ch olesterol in HDL [Mass ratio] 2.3 {ratio} Normal <5.0 [facility] Comment on above: Order Comment: Comme nt add on Result Comment: PERF ORMED BY: [place] [address] PATHOLOGIST INSTRUMENT SPECIALIST EZRA MCCLAIN M.D. Performed By: #### C MP, CBC #### [facility] [address] [place] [address] [place] LDL Cholesterol,Calculat ed 62 mg/dL Normal 0-100 [facility] Comment on above: Order Comment: Comme nt add on Result Comment: LDL ATP III CLASSIFICATION LDL less than 100 mg/dL Optimal LDL 100-129 mg/dL Near or above optimal LDL 130-159 mg/dL Borderline high LDL 160-189 mg/dL High LDL greater than 189 mg/dL Very high Performed By: #### C MP, CBC #### [facility] [address] Triglyceride w/Reflex 172 mg/dL High 0-149 [facility] Comment on above: Order Comment: Comme nt add on Result Comment: TRIG ATP III CLASSIFICATION TRIG less than 150 mg/dL Normal TRIG 150-199 mg/dL Borderline high TRIG 200-500 mg/dL High TRIG greater than 500 mg/dL Very high Standard traceable to the Center for Disease Conrtrol and Prevention (CDC) test method. Performed By: #### C MP, CBC #### [facility] [address] VLDL CHOLESTEROL 34 mg/dL Normal [facility] Comment on above: Order Comment: Comme nt add on Performed By: #### C MP, CBC #### [facility] [address] Lymphocytes Auto (Bld) [#/Vo l]Ordered By: Joo Ramos on 09-10-2022 Lymphocytes (Bld) [#/Vol] 1.1 10*3/uL 1.00-4.8 [facility] Lymphocytes/100 WBC Auto (Bl d)Ordered By: Joo Ramos on 09-10-2022 Lymphocytes/100 WBC (Bld) 21.5 % . [facility] MCH Auto (RBC) [Entitic mass ]Ordered By: Joo Ramos on 09-10-2022 MCH (RBC) [Entitic mass] 31.8 pg 24.7-34.3 [facility] MCHC Auto (RBC) [Mass/Vol]Or dered By: Joo Ramos on 09-10-2022 MCHC (RBC) [Mass/Vol] 33.1 g/dL 32.0-35.0 [facility] MCV Auto (RBC) [Entitic vol] Ordered By: Joo Ramos on 09-10-2022 MCV (RBC) [Entitic vol] 96.1 fL 80-100 [facility] Monocyte distribution width [Entitic volume] in Blood by AutomatedOrdered By: Joo Ramos on 09-10-2022 Monocyte distribution width Auto (Bld) [Entitic vol] 18.14 % 0.00-20.00 [facility] Monocytes Auto (Bld) [#/Vol] Ordered By: Joo Ramos on 09-10-2022 Monocytes (Bld) [#/Vol] 0.3 10*3/uL 0.0-0.8 [facility] Monocytes/100 WBC Auto (Bld) Ordered By: Joo Ramos on 09-10-2022 Monocytes/100 WBC (Bld) 5.1 % . [facility] Natriuretic peptide B [Mass/ Vol]Ordered By: Joo Ramos on 09-10-2022 Natriuretic peptide B (Bld) [Mass/Vol] 6.0 pg/mL 5-100 [facility] Neutrophils Auto (Bld) [#/Vo l]Ordered By: Joo Ramos on 09-10-2022 Neutrophils (Bld) [#/Vol] 3.7 10*3/uL 1.8-7.7 [facility] Neutrophils/100 WBC Auto (Bl d)Ordered By: Joo Ramos on 09-10-2022 Neutrophils/100 WBC (Bld) 70.7 % . [facility] Nitrite Test strip Ql (U)Ord ered By: Joo Ramos on 09-10-2022 Nitrite Ql (U) Negative Negative [facility] No Panel InformationOrdered By: Joo Ramos on 09-10-2022 Pharmacy Creatinine Clearance (Chem 109.50 [facility] Nucleated erythrocytes [Pres ence] in Blood by Automated countOrdered By: Joo Ramos on 09-10-2022 Nucleated RBC Auto Ql (Bld) 0.3 /100{WBC} 0-0.5 [facility] Partial Thromboplastin Timeo n 09-10-2022 aPTT Coag (Bld) [Time] 31.2 s Normal 25.1-36.5 [facility] Comment on above: Result Comment: PERF ORMED BY: [place] [address] PATHOLOGIST INSTRUMENT SPECIALIST EZRA MCCLAIN M.D. Performed By: #### C MP, CBC #### [address] Platelet mean volume Auto (B ld) [Entitic vol]Ordered By: Joo Ramos on 09-10-2022 Platelet mean volume (Bld) [Entitic vol] 7.2 fL 6.3-10.7 [facility] Platelet poor plasma interna tional normalized ratio (INR) by coagulation assay (relatOrdered By: Joo Ramos on 09-10-2022 INR Coag (PPP) [Relative time] 1.0 {INR} [facility] Comment on above: INR Therapeutic Rang e [...] 09-10-2022 Platelets (Bld) [#/Vol] 180 10*3/uL 150-450 [facility] Potassium [Moles/volume] in Serum or PlasmaOrdered By: Joo Ramos on 09-10-2022 Potassium [Moles/Vol] 4.7 mmol/L 3.5-5.1 [facility] Protein Auto test strip (U) [Mass/Vol]Ordered By: Joo Ramos on 09-10-2022 Protein (U) [Mass/Vol] Negative Negative [facility] Protein [Mass/volume] in Ser um or PlasmaOrdered By: Joo Ramos on 09-10-2022 Protein [Mass/Vol] 7.1 g/dL 6.4-8.9 [facility] Prothrombin Time INRon 09-10 INR Coag (PPP) [Relative time] 1.0 {INR} Normal [facility] Comment on above: Result Comment: INR Therapeutic [...] #### C MP, CBC #### [facility] [address] [place] [id number] [facility] PT Coag (PPP) [Time] 11.8 s Normal 9.0-12.9 [facility] Comment on above: Performed By: #### C MP, CBC #### [facility] [address] [place] [address] RBC Auto (Bld) [#/Vol]Ordere d By: Joo Ramos on 09-10-2022 RBC (Bld) [#/Vol] 3.92 10*6/uL 3.60-5.00 [facility] Respiratory (Upper) Panel, P CRon 09-10-2022 [...] COVID-19 Detected/Not Detected Not detected PERFORMED BY: [place] [address] PATHOLOGIST INSTRUMENT SPECIALIST EZRA MCCLAIN M.D. [facility] Comment on above: Performed By: #### C MP, CBC #### [facility] [address] [place] [address] Respiratory pathogens DNA an d RNA panel - Nasopharynx by TERESO with non-probe detectionOrdered By: Marilyn Sun on 09-10-2022 Respiratory pathogens DNA and RNA panel TERESO+non-probe (Nph) [facility] Serum or plasma albumin/glob ulin mass ratioOrdered By: Joo Ramos on 09-10-2022 Albumin/Globulin [Mass ratio] 1.6 {ratio} [facility] Serum or plasma anion gap de terminationOrdered By: Joo Ramos on 09-10-2022 Anion gap [Moles/Vol] 13.7 mmol/L 6.0-15.0 [facility] Serum or plasma high density lipoprotein (HDL) cholesterol measurementOrdered By: Marilyn Sun on 09-10-2022 Cholesterol in HDL [Mass/Vol] 73 mg/dL 35-85 [facility] Comment on above: HDL CHOL ATP-III CLA SSIFICATION Cardiovascular RiskHDL > or equal to 60 mg/dL LOWHDL < 40 mg/dL HIGH Serum or plasma non-glucuron idated bilirubin measurement (mass/volume)Ordered By: Joo Ramos on 09-10-2022 Bilirubin.indirect [Mass/Vol] 0.3 mg/dL [facility] Serum or plasma total choles terol/high density lipoprotein (HDL) cholesterol mass ratOrdered By: Marilyn Sun on 09-10-2022 Cholesterol.total/Ch olesterol in HDL [Mass ratio] 2.3 {ratio} <5.0 [facility] Sodium [Moles/volume] in Ser um or PlasmaOrdered By: Joo Ramos on 09-10-2022 Sodium [Moles/Vol] 137 mmol/L 136-145 [facility] Specific gravity Auto test s trip (U) [Rel density]Ordered By: Joo Ramos on 09-10-2022 Specific gravity (U) [Rel density] 1.005 1.001-1.030 [facility] Triglyceride [Mass/volume] i n Serum or PlasmaOrdered By: Marilyn Sun on 09-10-2022 Triglyceride [Mass/Vol] 172 mg/dL 0-149 [facility] Comment on above: TRIG ATP III CLASSIF ICATIONTRIG less than 150 mg/dL NormalTRIG 150-199 mg/dL Borderline highTRIG 200-500 mg/dL High TRIG greater than 500 mg/dL Very highStandard traceable to the Center for Disease Conrtrol and Prevention (CDC) test method. Troponin I High Sensitivityo n 09-10-2022 Troponin I High Sensitivity 6.3 pg/mL Normal 0.0-15.0 [facility] Comment on above: Result Comment: PERF ORMED BY: [facility] [address] [place] [address] PATHOLOGIST INSTRUMENT SPECIALIST EZRA MCCLAIN M.D. Performed By: #### H S TROP #### [place] [address] [place] Troponin I High Sensitivity 6.6 pg/mL Normal 0.0-15.0 [facility] Comment on above: Result Comment: PERF ORMED BY: [place] [address] PATHOLOGIST INSTRUMENT SPECIALIST EZRA MCCLAIN M.D. Performed By: #### H S TROP #### [address] Troponin I High Sensitivity 6.3 pg/mL Normal 0.0-15.0 [facility] Comment on above: Result Comment: PERF ORMED BY: [place] [address] PATHOLOGIST INSTRUMENT SPECIALIST EZRA MCCLAIN M.D. Performed By: #### C MP, CBC #### [address] Troponin I.cardiac [Mass/vol ume] in Serum or Plasma by Detection limit <= 0.01 ng/Ordered By: Marilyn Sun on 09-10-2022 Troponin I.cardiac DL <= 0.01 ng/mL [Mass/Vol] 5.3 pg/mL 0.0-15.0 [facility] Troponin I.cardiac [Mass/vol ume] in Serum or Plasma by Detection limit <= 0.01 ng/Ordered By: Joo Ramos on 09-10-2022 Troponin I.cardiac DL <= 0.01 ng/mL [Mass/Vol] 6.3 pg/mL 0.0-15.0 [facility] Urea nitrogen [Mass/volume] in Serum or PlasmaOrdered By: Joo Ramos on 09-10-2022 Urea nitrogen [Mass/Vol] 24 mg/dL 01-25 [facility] Urinalysison 09-10-2022 Appearance (U) Clear Normal Clear [facility] Comment on above: Order Comment: Name Collection Type:: Clean-Voided Midstream Performed By: #### C MP, CBC #### [address] [place] [address] [place] Bilirubin,Urine Negative Normal Negative [facility] Comment on above: Order Comment: Name Collection Type:: Clean-Voided Midstream Performed By: #### C MP, CBC #### [place] [id number] [place] Color (U) Yellow Normal Yellow [facility] Comment on above: Order Comment: Name Collection Type:: Clean-Voided Midstream Performed By: #### C MP, CBC #### [place] [address] [place] Glucose Ql (U) Normal Normal Normal [facility] Comment on above: Order Comment: Name Collection Type:: Clean-Voided Midstream Performed By: #### C MP, CBC #### [place] [address] [place] Ketones Ql (U) Negative Normal Negative [facility] Comment on above: Order Comment: Name Collection Type:: Clean-Voided Midstream Performed By: #### C MP, CBC #### [place] [address] [place] Leukocyte esterase Test strip Ql (U) Negative Normal Negative [facility] Comment on above: Order Comment: Name Collection Type:: Clean-Voided Midstream Performed By: #### C MP, CBC #### [place] [address] [place] Nitrite,Urine Negative Normal Negative [facility] Comment on above: Order Comment: Name Collection Type:: Clean-Voided Midstream Performed By: #### C MP, CBC #### [facility] [address] [place] [address] [place] Occult Blood,Urine Negative Normal Negative [facility] Comment on above: Order Comment: Name Collection Type:: Clean-Voided Midstream Result Comment: PERF ORMED BY: [place] [address] PATHOLOGIST INSTRUMENT SPECIALIST EZRA MCCLAIN M.D. Performed By: #### C MP, CBC #### [facility] [address] [place] [address] [place] pH (U) 5.5 [pH] Normal 5.0-9.0 [facility] Comment on above: Order Comment: Name Collection Type:: Clean-Voided Midstream Performed By: #### C MP, CBC #### [facility] [address] [place] [address] [place] Protein,Urine Negative Normal Negative [facility] Comment on above: Order Comment: Name Collection Type:: Clean-Voided Midstream Performed By: #### C MP, CBC #### [facility] [address] Specificy [place],Urine 1.005 Normal 1.001-1.030 [facility] Comment on above: Order Comment: Name Collection Type:: Clean-Voided Midstream Performed By: #### C MP, CBC #### [address] Urobilinogen,Urine Normal Normal Normal [facility] Comment on above: Order Comment: Name Collection Type:: Clean-Voided Midstream Performed By: #### C MP, CBC #### [address] Urine clarity by refractomet ry automatedOrdered By: Joo Ramos on 09-10-2022 Clarity Refractometry automated (U) Clear Clear [facility] Urine glucose measurement by automated test strip (mass/volume)Ordered By: Joo Ramos on 09-10-2022 Glucose Auto test strip (U) [Mass/Vol] Normal mg/dL Normal [facility] Urine hemoglobin detection b y automated test stripOrdered By: Joo Ramos on 09-10-2022 Hemoglobin Auto test strip Ql (U) Negative Negative [facility] Urine leukocyte esterase det ection by automated test stripOrdered By: Joo Ramos on 09-10-2022 Leukocyte esterase Auto test strip Ql (U) Negative Negative [facility] Urobilinogen Auto test strip (U) [Mass/Vol]Ordered By: Joo Ramos on 09-10-2022 Urobilinogen (U) [Mass/Vol] Normal mg/dL Normal [facility] WBC Auto (Bld) [#/Vol]Ordere d By: Joo Ramos on 09-10-2022 WBC (Bld) [#/Vol] 5.2 10*3/uL 3.8-11.6 [facility] XR chest 2V*on 09-10-2022 XR chest 2V* [facility] Main [place] [address] [place] [id number] XRay Report Signed Patient: Carmen Bledsoe MR#: [id number] 9 : 1960 Acct:[id number] Age/Sex: 61 / F ADM Date: 09/10/22 [...] Vicente Jr., SandieOFranco09/10/2022 11:55 AM Dictation Location: [place] [address] Transcribed By: [facility] 09/10/22 1155 Dictated By: Jacques Vicente Jr, DO 09/10/22 1155 Signed By: 09/10/22 1155 Normal [facility] pH Auto test strip (U)Ordere d By: Joo Ramos on 09-10-2022 pH (U) 5.5 [pH] 5.0-9.0 [facility] CHEMISTRYOrdered By: SYSTEM SYSTEM on 09-06-2022 Anion [...] [Vol rate/Area] mL/min/1.73 m2 Normal >=59mL/min/1.73 m2 [facility] Chem S Glucose [Mass/Vol] 102 mg/dL Normal [...] g/dL Normal 3.3 - 5.0 gm/dL F [facility] Remisol Albumin/Globulin [Mass ratio] 1.2 {ratio} Normal [...] and upper abdomen normal. IMPRESSION: Negative chest. [facility]: Radiology Study observation (narrative) [facility] Phone: XR CHEST (2 VW)Ordered By: Chester Minor on 05-21-2021 [facility]: COVID-19on 03-17-2020 SARS-CoV-2, Rapid Not Detected Not Detected [place] Comment on above: Rapid NAAT: The [...] management decisions. Fact sheet for Healthcare Providers: https://www.fda.gov/media/543350/download Fact sheet for Patients: https://www.fda.gov/media/552057/download Methodology: Isothermal Nucleic Acid Amplification Source .THROAT [place], [place] Otheron 03-17-2020 SARS-CoV-2 [place] US PELVIS COMPLETEon 020 1. 8 cm intrauterine fibroid. 2. Likely vascular polyp in the cervix. [place] EXAM: US PELVIS COMPLETE HISTORY: N85.2. [...] ovary: 2.8 x 2.0 x 1.3 cm. [place] Dre, Mhpn Incoming Radiant Results From [facility] - 02/19/2020 4:19 PM EDT EXAM: US [...] 2. Likely vascular polyp in the cervix. [place] BUN & creatinineon 0 Creatinine [Mass/Vol] 0.81 mg/dL 0.5 - 0.9 mg/dL [place] GFR >60 >60 mL/min [place] GFR Non- >60 >60 mL/min [place] GFR/1.73 sq M predicted among non-blacks MDRD (S/P/Bld) [Vol rate/Area] [place] Comment on above: Average GFR for 50-5 9 years old: 93 mL/min/1.73sq m Chronic Kidney Disease: <60 mL/min/1.73sq m Kidney failure: <15 mL/min/1.73sq m eGFR calculated using average adult body mass. Additional eGFR calculator available at: http://www.[employer]/multiple_crcl_2012.htm GFR/1.73 sq M predicted among non-blacks MDRD (S/P/Bld) [Vol rate/Area] NOT REPORTED [place] Urea nitrogen [Mass/Vol] 15 mg/dL 6 - 20 mg/dL [place] ABDOMEN PELVIS W IV CONTR AST Additional Contrast? Oralon 02-07-2020 No acute process in the abdomen or pelvis. Enlarged, fatty liver. Prominent, bulky uterus, a nonspecific finding that may be related to underlying fibroids or adenomyosis. [place] EXAMINATION: CT ABDOMEN PELVIS W IV [...] Chronic degenerative changes in the thoracolumbar spine. [place] Dre, Mhpn Incoming Radiant Results From [facility] - 02/07/2020 3:09 PM EDT EXAMINATION: CT [...] be related to underlying fibroids or adenomyosis. [place] CBC Auto Differentialon 03-0 5-2020 Basophils (Bld) [#/Vol] 0.00 10*3/uL [place] Basophils/100 WBC (Bld) 0 % 0 - 2 % [place] Differential Type YES [place], [place] Eosinophils (Bld) [#/Vol] 0.10 10*3/uL [place] Eosinophils/100 WBC (Bld) 1 % 0 - 5 % [place] Erythrocyte distribution width (RBC) [Ratio] 15.7 % High 12.1 - 15.2 % [place] Hematocrit (Bld) [Volume fraction] 37.6 % 36 - 46 % [place] Hemoglobin (Bld) [Mass/Vol] 12.4 g/dL 12 - 16 g/dL [place] Interpretation and review of laboratory results Abnormal [place] Lymphocytes (Bld) [#/Vol] 1.40 10*3/uL [place] Lymphocytes/100 WBC (Bld) 20 % 15 - 40 % [place] MCH (RBC) [Entitic mass] 29.0 pg 26 - 34 pg [place] MCHC (RBC) [Mass/Vol] 33.0 g/dL 31 - 37 g/dL [place] MCV (RBC) [Entitic vol] 87.9 fL 80 - 100 fL [place] Monocytes (Bld) [#/Vol] 0.40 10*3/uL [place] Monocytes/100 WBC (Bld) 6 % 4 - 8 % [place] Platelet mean volume (Bld) [Entitic vol] NOT REPORTED 6 - 12 fL [place] Platelets (Bld) [#/Vol] NOT REPORTED [place] Platelets (Bld) [#/Vol] 268 10*3/uL [place] RBC (Bld) [#/Vol] 4.28 10*6/uL 4 - 5.2 m/uL [place] RBC morphology finding Nom (Bld) NOT REPORTED [place] Segmented neutrophils/100 WBC (Bld) 73 % 47 - 75 % [place] Segs Absolute 5.10 [place] WBC (Bld) [#/Vol] 7.1 10*3/uL [place] WBC (Bld) [#/Vol] NOT REPORTED per 100 WBC [place] WBC Morphology NOT REPORTED [place] Comprehensive Metabolic Pane usman 09-06-2019 Albumin [Mass/Vol] 4.5 g/dL 3.5 - 5.2 g/dL [place] Albumin/Globulin [Mass ratio] NOT REPORTED [place] ALP [Catalytic activity/Vol] 92 U/L 35 - 104 U/L [place] ALT [Catalytic activity/Vol] 28 U/L 5 - 33 U/L [place] Anion gap [Moles/Vol] 13 mmol/L 9 - 17 mmol/L [place] AST [Catalytic activity/Vol] 19 U/L <32 [place] Bilirubin Ql (U) 0.40 mg/dL 0.3 - 1.2 mg/dL [place] Bun/Cre Ratio 26 High [place] Calcium [Mass/Vol] 10.2 mg/dL 8.6 - 10.4 mg/dL [place] Chloride [Moles/Vol] 99 mmol/L 98 - 107 mmol/L [place] CO2 [Moles/Vol] 28 mmol/L 20 - 31 mmol/L [place] Creatinine [Mass/Vol] 0.86 mg/dL 0.5 - 0.9 mg/dL [place] GFR >60 >60 mL/min [place] GFR Non- >60 >60 mL/min [place] GFR/1.73 sq M predicted among non-blacks MDRD (S/P/Bld) [Vol rate/Area] NOT REPORTED [place] GFR/1.73 sq M predicted among non-blacks MDRD (S/P/Bld) [Vol rate/Area] [place] Comment on above: Average GFR for 50-5 9 years old: 93 mL/min/1.73sq m Chronic Kidney Disease: <60 mL/min/1.73sq m Kidney failure: <15 mL/min/1.73sq m eGFR calculated using average adult body mass. Additional eGFR calculator available at: http://www.[employer]/multiple_crcl_2011.htm Glucose [Mass/Vol] 121 mg/dL High 70 - 99 mg/dL [place] Potassium [Moles/Vol] 4.6 mmol/L 3.7 - 5.3 mmol/L [place] Protein [Mass/Vol] 7.7 g/dL 6.4 - 8.3 g/dL [place] Sodium [Moles/Vol] 140 mmol/L 135 - 144 mmol/L [place] Urea nitrogen [Mass/Vol] 22 mg/dL High 6 - 20 mg/dL [place] Hemoglobin A1Con 09-06-2019 Glucose [Mass/Vol] 128 mg/dL [place] Comment on above: The ADA and AACC rec ommend providing the estimated average glucose result to permit better patient understanding of their HBA1c result. HbA1c (Bld) [Mass fraction] 6.1 % High 4.8 - 5.9 % [place] Interpretation and review of laboratory results Abnormal [place] Lipid Panelon 09-06-2019 Cholesterol [Mass/Vol] 166 mg/dL <200 [place] Comment on above: Cholesterol Guidelines: <200 Desirable 200-240 Borderline >240 Undesirable Cholesterol in HDL [Mass/Vol] 39 mg/dL Low >40 [place] Comment on above: HDL Guidelines: <40 Undesirable 40-59 Borderline >59 Desirable Cholesterol in LDL [Mass/Vol] 71 mg/dL 0 - 130 mg/dL [place] Comment on above: LDL Guidelines: <100 Desirable 100-129 Near to/above Desirable 130-159 Borderline >159 Undesirable Direct (measured) LDL and calculated LDL are not interchangeable tests. Cholesterol in VLDL [Mass/Vol] NOT REPORTED High 1 - 30 mg/dL [place] Cholesterol.total/Ch olesterol in HDL [Mass ratio] 4.3 {ratio} <5 [place] Triglyceride [Mass/Vol] 280 mg/dL High <150 [place] Comment on above: Triglyceride Guidelines: <150 Desirable 150-199 Borderline 200-499 High >499 Very high Based on AHA Guidelines for fasting triglyceride, April 2012. Magnesiumon 09-06-2019 Magnesium [Mass/Vol] 1.9 mg/dL 1.6 - 2.6 mg/dL [place] Otheron 09-06-2019 Interpretation and review of laboratory results Abnormal [place] Immature granulocytes (Bld) [#/Vol] NOT REPORTED 0 % [place] Patient Fasting?on 0 Patient Fasting? yes [place] TSH with Reflexon 09-06-2019 TSH Qn 2.01 m[IU]/L [place] Vitamin D 25 Hydroxyon 09-05 Interpretation and review of laboratory results Abnormal [place] Vit D, 25-Hydroxy 29.5 ng/mL Low 30 - 100 ng/mL [place] Comment on above: Reference Range: Vitamin D status Range Deficiency <20 ng/mL Mild Deficiency 20-30 ng/mL Sufficiency 30-100 ng/mL Toxicity >100 ng/mL XR CHEST STANDARD (2 VW)on 0 09-06-2019 No evidence of acute disease in the chest or change from 02/23/2018. [place] CHEST, TWO VIEWS, 09/06/2019: CLINICAL HISTORY: [...] calcification and tortuosity of the thoracic aorta. [place], [place] Dre, Mhpn Incoming Radiant Results From [facility] - 09/06/2019 10:11 PM EST CHEST, TWO [...] in the chest or change from 02/23/2018. [place] Vital Signs Date Time Vital Sign Value Performing Clinician Faci lity 04-03-2025 09:54-0400 Body height 160.02 cm Myron WATERMAN Work Phone: [facility] 04-03-2025 09:54-0400 Body mass index (BMI) [Ratio] 62.8 kg/m2 Myron WATERMAN Work Phone: [facility] 04-03-2025 09:54-0400 Body weight 161.02 kg Myron WATERMAN Work Phone: [facility] 11-07-2024 09:58-0400 Body height 167.6 cm MALINA Dean MD Work Phone: [facility] 11-07-2024 09:58-0400 Body mass index (BMI) [Ratio] 54.72 kg/m2 MALINA Dean MD Work Phone: [facility] 11-07-2024 09:58-0400 Body weight 153.77 kg MALINA Dean MD Work Phone: [facility] 11-07-2024 09:58-0400 Diastolic blood pressure 82 mm[Hg] MALINA Dean MD Work Phone: [facility] 11-07-2024 09:58-0400 Heart rate 85 /min MALINA Dean MD Work Phone: [facility] 11-07-2024 09:58-0400 Respiratory rate 22 /min MALINA Dean MD Work Phone: [facility] 11-07-2024 09:58-0400 SaO2% (BldA) [Mass fraction] 97 % MALINA Dean MD Work Phone: [facility] 11-07-2024 09:58-0400 Systolic blood pressure 122 mm[Hg] MALINA Dean MD Work Phone: [facility] 07-18-2024 11:52-0500 Blood Pressure Location Myron Rust [facility] 07-18-2024 11:52-0500 Body temperature 97.52 [degF] Myron Yocasta [facility] 07-18-2024 11:52-0500 Diastolic blood pressure 82 mm[Hg] Myron Yocasta [facility] 07-18-2024 11:52-0500 Heart rate 78 /min Myron Yocasta [facility] 07-18-2024 11:52-0500 Respiratory rate 18 /min Myron Yocasta [facility] 07-18-2024 11:52-0500 SaO2% (BldA) [Mass fraction] 98 % Myron Yocasta [facility] 07-18-2024 11:52-0500 Systolic blood pressure 138 mm[Hg] Myron Yocasta [facility] 07-11-2024 11:15-0500 Blood Pressure Location Myron Yocasta [facility] 07-11-2024 11:15-0500 Body temperature 97.52 [degF] Myron Yocasta [facility] 07-11-2024 11:15-0500 Diastolic blood pressure 78 mm[Hg] Myron Yocasta [facility] 07-11-2024 11:15-0500 Heart rate 92 /min Myron Yocasta [facility] 07-11-2024 11:15-0500 Respiratory rate 18 /min Myron Yocasta [facility] 07-11-2024 11:15-0500 SaO2% (BldA) [Mass fraction] 99 % Myron Yocasta [facility] 07-11-2024 11:15-0500 Systolic blood pressure 118 mm[Hg] Myron Yocasta [facility] 06-05-2024 12:57-0500 Blood Pressure Location Rick Hernandez [facility] 06-05-2024 12:57-0500 Diastolic blood pressure 80 mm[Hg] Rick Hernandez [facility] 06-05-2024 12:57-0500 Heart rate 90 /min Rick Hernandez [facility] 06-05-2024 12:57-0500 Respiratory rate 16 /min Rick Hernandez [facility] 06-05-2024 12:57-0500 SaO2% (BldA) [Mass fraction] 96 % Rick Hernandez [facility] 06-05-2024 12:57-0500 Systolic blood pressure 126 mm[Hg] Rick Hernandez [facility] 02-22-2024 13:08-0400 Blood Pressure Location Myron Yocasta [facility] 02-22-2024 13:08-0400 Body temperature 97.88 [degF] Myron Yocasta [facility] 02-22-2024 13:08-0400 Diastolic blood pressure 68 mm[Hg] Myron Yocasta [facility] 02-22-2024 13:08-0400 Heart rate 63 /min Myron Yocasta [facility] 02-22-2024 13:08-0400 Respiratory rate 18 /min Myron Yocasta [facility] 02-22-2024 13:08-0400 SaO2% (BldA) [Mass fraction] 99 % Myorn Yocasta [facility] 02-22-2024 13:08-0400 Systolic blood pressure 118 mm[Hg] Myron Yocasta [facility] 12-23-2023 13:25-0400 Diastolic blood pressure 84 mm[Hg] Walker Phillip [facility] 12-23-2023 13:25-0400 Heart rate 78 /min Cardoso Sarmini [facility] 12-23-2023 13:25-0400 Mean blood pressure 111 mm[Hg] Cardoso Sarmini [facility] 12-23-2023 13:25-0400 Respiratory rate 24 /min Cardoso Sarmini [facility] 12-23-2023 13:25-0400 SaO2% (BldA) [Mass fraction] 98 % Cardoso Sarmini [facility] 12-23-2023 13:25-0400 Systolic blood pressure 166 mm[Hg] Cardoso Sarmini [facility] 12-23-2023 13:15-0400 Diastolic blood pressure 89 mm[Hg] Cardoso Sarmini [facility] 12-23-2023 13:15-0400 Heart rate 69 /min Cardoso Sarmini [facility] 12-23-2023 13:15-0400 Mean blood pressure 111 mm[Hg] Cardoso Sarmini [facility] 12-23-2023 13:15-0400 Respiratory rate 17 /min Cardoso Sarmini [facility] 12-23-2023 13:15-0400 SaO2% (BldA) [Mass fraction] 99 % Cardoso Sarmini [facility] 12-23-2023 13:15-0400 Systolic blood pressure 155 mm[Hg] Cardoso Sarmini [facility] 12-23-2023 13:10-0400 Diastolic blood pressure 95 mm[Hg] Cardoso Sarmini [facility] 12-23-2023 13:10-0400 Heart rate 85 /min Cardoso Sarmini [facility] 12-23-2023 13:10-0400 Mean blood pressure 110 mm[Hg] Cardoso Sarmini [facility] 12-23-2023 13:10-0400 Respiratory rate 15 /min Cardoso Sarmini [facility] 12-23-2023 13:10-0400 SaO2% (BldA) [Mass fraction] 99 % Cardoso Derekmini [facility] 12-23-2023 13:10-0400 Systolic blood pressure 141 mm[Hg] Cardoso Sarmini [facility] 12-23-2023 13:00-0400 Body temperature 97.7 [degF] Cardoso Sarmini [facility] 12-23-2023 10:45-0400 Blood Pressure Location Cardoso Derekmini [facility] 12-23-2023 10:45-0400 Body temperature 97.88 [degF] Cardoso Derekmini [facility] 12-06-2023 14:51-0400 Blood Pressure Location Alirio Adam [facility] 12-06-2023 14:51-0400 Diastolic blood pressure 80 mm[Hg] Alirio Ramirez [facility] 12-06-2023 14:51-0400 Heart rate 86 /min Alirio Ramirez [facility] 12-06-2023 14:51-0400 SaO2% (BldA) [Mass fraction] 94 % Alirio Adam [facility] 12-06-2023 14:51-0400 Systolic blood pressure 124 mm[Hg] Alirio Ramirez [facility] 11-25-2023 14:30-0400 Blood Pressure Location Myronross Rust [facility] 11-25-2023 14:30-0400 Body temperature 96.8 [degF] Myron Yocasta [facility] 11-25-2023 14:30-0400 Diastolic blood pressure 80 mm[Hg] Myron Yocasta [facility] 11-25-2023 14:30-0400 Heart rate 89 /min Myron Yocasta [facility] 11-25-2023 14:30-0400 Respiratory rate 22 /min Myron Yocasta [facility] 11-25-2023 14:30-0400 SaO2% (BldA) [Mass fraction] 98 % Myron Yocasta [facility] 11-25-2023 14:30-0400 Systolic blood pressure 138 mm[Hg] Myron Yocasta [facility] 11-02-2023 10:06-0400 Blood Pressure Location Cardoso Sarmini [facility] 11-02-2023 10:06-0400 Diastolic blood pressure 60 mm[Hg] Cardoso Sarmini [facility] 11-02-2023 10:06-0400 Heart rate 78 /min Cardoso Sarmini [facility] 11-02-2023 10:06-0400 Respiratory rate 18 /min Walker Reedmini [facility] 11-02-2023 10:06-0400 Systolic blood pressure 118 mm[Hg] Walker Reedmini [facility] 10-26-2023 13:12-0400 Blood Pressure Location Myron Yocasta [facility] 10-26-2023 13:12-0400 Diastolic blood pressure 78 mm[Hg] Myron Yocasta [facility] 10-26-2023 13:12-0400 Heart rate 77 /min Myron Yocasta [facility] 10-26-2023 13:12-0400 Respiratory rate 16 /min Myron Yocasta [facility] 10-26-2023 13:12-0400 SaO2% (BldA) [Mass fraction] 99 % Myron Yocasta [facility] 10-26-2023 13:12-0400 Systolic blood pressure 122 mm[Hg] Myron Yocasta [facility] 10-25-2023 14:56-0400 Blood Pressure Location Alirio Ramirez [facility] 10-25-2023 14:56-0400 Diastolic blood pressure 76 mm[Hg] Alirio Ramirez [facility] 10-25-2023 14:56-0400 Heart rate 96 /min Alirio Ramirez [facility] 10-25-2023 14:56-0400 SaO2% (BldA) [Mass fraction] 67 % Alirio Ramirez [facility] 10-25-2023 14:56-0400 Systolic blood pressure 128 mm[Hg] Alirio Ramirez [facility] 10-11-2023 17:33-0400 Diastolic blood pressure 90 mm[Hg] Myron Yocasta [facility] 10-11-2023 17:33-0400 Mean blood pressure 107 mm[Hg] Myron Yocasta [facility] 10-11-2023 17:33-0400 Systolic blood pressure 142 mm[Hg] Myron Yocasta [facility] 10-11-2023 14:21-0400 Blood Pressure Location Myron Yocasta [facility] 10-11-2023 14:21-0400 Body temperature 98.6 [degF] Myron Yocasta [facility] 10-11-2023 14:21-0400 Diastolic blood pressure 90 mm[Hg] Myron Yocasta [facility] 10-11-2023 14:21-0400 Heart rate 65 /min Myron Yocasta [facility] 10-11-2023 14:21-0400 Respiratory rate 20 /min Myron Yocasta [facility] 10-11-2023 14:21-0400 SaO2% (BldA) [Mass fraction] 95 % Myron Yocasta [facility] 10-11-2023 14:21-0400 Systolic blood pressure 144 mm[Hg] Myron Yocatsa [facility] 08-10-2023 14:19-0500 Blood Pressure Location Myronross Rebolledoant [facility] 08-10-2023 14:19-0500 Body temperature 97.88 [degF] Myron Yocasta [facility] 08-10-2023 14:19-0500 Diastolic blood pressure 70 mm[Hg] Myron Yocasta [facility] 08-10-2023 14:19-0500 Heart rate 90 /min Myron Yocasta [facility] 08-10-2023 14:19-0500 Respiratory rate 20 /min Myron Yocasta [facility] 08-10-2023 14:19-0500 SaO2% (BldA) [Mass fraction] 95 % Myronross Rebolledoant [facility] 08-10-2023 14:19-0500 Systolic blood pressure 124 mm[Hg] Myron Yocasta [facility] 05-09-2023 08:04-0500 Blood Pressure Location Ansley Carrero [facility] 05-09-2023 08:04-0500 Body temperature 98.24 [degF] Ansley Carrero [facility] 05-09-2023 08:04-0500 Diastolic blood pressure 74 mm[Hg] Ansley Carrero [facility] 05-09-2023 08:04-0500 Heart rate 77 /min Ansley Carrero [facility] 05-09-2023 08:04-0500 Respiratory rate 18 /min Ansley Howardzier [facility] 05-09-2023 08:04-0500 SaO2% (BldA) [Mass fraction] 96 % Ansley Howardzier [facility] 05-09-2023 08:04-0500 Systolic blood pressure 120 mm[Hg] Ansley Howardzier [facility] 04-26-2023 10:59-0400 Blood Pressure Location Myron Yocasta [facility] 04-26-2023 10:59-0400 Body temperature 98.6 [degF] Myron Yocasta [facility] 04-26-2023 10:59-0400 Diastolic blood pressure 70 mm[Hg] Myron Yocasta [facility] 04-26-2023 10:59-0400 Heart rate 78 /min Myron Yocasta [facility] 04-26-2023 10:59-0400 Respiratory rate 18 /min Myron Yocasta [facility] 04-26-2023 10:59-0400 SaO2% (BldA) [Mass fraction] 98 % Myron Yocasta [facility] 04-26-2023 10:59-0400 Systolic blood pressure 128 mm[Hg] Myron Yocasta [facility] 03-18-2023 11:51-0400 Blood Pressure Location Myron Yocasta [facility] 03-18-2023 11:51-0400 Body temperature 97.7 [degF] Myron Yocasta [facility] 03-18-2023 11:51-0400 Diastolic blood pressure 64 mm[Hg] Myron Rebolledoant [facility] 03-18-2023 11:51-0400 Heart rate 78 /min Myron Rebolledoant [facility] 03-18-2023 11:51-0400 Respiratory rate 16 /min Myron Rust [facility] 03-18-2023 11:51-0400 SaO2% (BldA) [Mass fraction] 94 % Myron Rust [facility] 03-18-2023 11:51-0400 Systolic blood pressure 122 mm[Hg] Myron Rust [facility] 10-15-2022 05:30-0400 Diastolic blood pressure 75 mm[Hg] Demetra Cruz MD Work Phone: [employer] 10-15-2022 05:30-0400 Heart rate 98 /min Demetra Cruz MD Work Phone: [employer] 10-15-2022 05:30-0400 Respiratory rate 21 /min Demetra Cruz MD Work Phone: [employer] 10-15-2022 05:30-0400 Systolic blood pressure 119 mm[Hg] Demetra Cruz MD Work Phone: [employer] 10-15-2022 05:15-0400 SaO2% (BldA) [Mass fraction] 89 % Demetra Cruz MD Work Phone: [employer] 10-14-2022 21:50-0400 Body height 170.2 cm Demetra Cruz MD Work Phone: [employer] 04-13-2023 21:50-0400 Body mass index (BMI) [Ratio] 51.22 kg/m2 Demetra Cruz MD [facility] 10-14-2022 21:50-0400 Body temperature 98.1 [degF] Demetra Cruz MD Work Phone: [facility] 10-14-2022 21:50-0400 Body weight 148.33 kg Demetra Cruz MD Work Phone: [facility] 10-13-2022 08:55-0400 Blood Pressure Location Carmenkeisha Marksa [facility] 10-13-2022 08:55-0400 Diastolic blood pressure 76 mm[Hg] Carmen Jerriarda [facility] 10-13-2022 08:55-0400 Heart rate 79 /min Carmen Wiarda [facility] 10-13-2022 08:55-0400 SaO2% (BldA) [Mass fraction] 93 % Carmen Wiarda [facility] 10-13-2022 08:55-0400 Systolic blood pressure 128 mm[Hg] Carmen Wiarda [facility] 09-29-2022 11:33-0400 Blood Pressure Location Carmen Guthriearda [facility] 09-29-2022 11:33-0400 Diastolic blood pressure 72 mm[Hg] Carmen Wiarda [facility] 09-29-2022 11:33-0400 Heart rate 90 /min Carmen Jerriarda [facility] 09-29-2022 11:33-0400 SaO2% (BldA) [Mass fraction] 93 % Carmen Jerriarda [facility] 09-29-2022 11:33-0400 Systolic blood pressure 128 mm[Hg] Carmen Haley [facility] 09-24-2022 14:40-0400 Blood Pressure Location Lupis [facility] 09-24-2022 14:40-0400 Body temperature 97.16 [degF] Lupis [facility] 09-24-2022 14:40-0400 Diastolic blood pressure 82 mm[Hg] Lupis [facility] 09-24-2022 14:40-0400 Heart rate 83 /min Lup[facility] 09-24-2022 14:40-0400 Respiratory rate 24 /min Lupis [facility] 09-24-2022 14:40-0400 SaO2% (BldA) [Mass fraction] 92 % Lup[facility] 09-24-2022 14:40-0400 Systolic blood pressure 106 mm[Hg] Lupis [facility] 09-22-2022 08:08-0400 Blood Pressure Location Carmen Haley [facility] 09-22-2022 08:08-0400 Diastolic blood pressure 78 mm[Hg] Carmen Haley [facility] 09-22-2022 08:08-0400 Heart rate 72 /min Carmen Marksa [facility] 09-22-2022 08:08-0400 SaO2% (BldA) [Mass fraction] 94 % Carmen Marksa [facility] 09-22-2022 08:08-0400 Systolic blood pressure 136 mm[Hg] Carmen Haley [facility] 09-14-2022 11:55-0400 Heart rate 79 /min DO Joo Rachel Work Phone: [facility] 09-14-2022 11:55-0400 Respiratory rate 20 /min DO Joo Rachel Work Phone: [facility] 09-14-2022 08:41-0400 SaO2% (BldA) [Mass fraction] 95 % DO Joo Rachel Work Phone: [facility] 09-14-2022 07:36-0400 Diastolic blood pressure 85 mm[Hg] DO Joo Rachel Work Phone: [facility] 09-14-2022 07:36-0400 Systolic blood pressure 134 mm[Hg] DO Joo Rachel Work Phone: [facility] 09-14-2022 05:21-0400 Body weight 153.9 kg DO Joo Rachel Work Phone: [facility] 09-14-2022 03:46-0400 Body temperature 98.1 [degF] DO Joo Rachel Work Phone: [facility] 09-13-2022 15:35-0400 Body height 160.02 cm DO Joo Rachel Work Phone: [facility] 09-11-2022 20:33-0500 Inhaled oxygen flow rate 2 L/min DO Joo Rachel Work Phone: [facility] 09-10-2022 14:03-0500 Diastolic blood pressure 57 mm[Hg] [facility] 09-10-2022 14:03-0500 Heart rate 86 /min [facility] 09-10-2022 14:03-0500 Inhaled oxygen flow rate 2 L/min [facility] 09-10-2022 14:03-0500 Respiratory rate 20 /min [facility] 09-10-2022 14:03-0500 SaO2% (BldA) [Mass fraction] 98 % [facility] 09-10-2022 14:03-0500 Systolic blood pressure 117 mm[Hg] [facility] 09-10-2022 11:11-0500 Body height 160.02 cm [facility] 09-10-2022 11:11-0500 Body temperature 97.6 [degF] [facility] 09-10-2022 11:11-0500 Body weight 159 kg [facility] 09-06-2022 11:23-0500 Blood Pressure Location [employer] [facility] 09-06-2022 11:23-0500 Body temperature 97.16 [degF] [facility] [facility] 09-06-2022 11:23-0500 Diastolic blood pressure 80 mm[Hg] [facility] [facility] 09-06-2022 11:23-0500 Heart rate 83 /min [facility] [facility] 09-06-2022 11:23-0500 Respiratory rate 28 /min [facility] [facility] 09-06-2022 11:23-0500 SaO2% (BldA) [Mass fraction] 94 % [facility] 09-06-2022 11:23-0500 Systolic blood pressure 138 mm[Hg] [facility] [facility] 08-20-2022 15:03-0500 Diastolic blood pressure 86 mm[Hg] [facility] [facility] 08-20-2022 15:03-0500 Mean blood pressure 114 mm[Hg] [facility] [employer] 08-20-2022 15:03-0500 Systolic blood pressure 170 mm[Hg] Lupis [facility] 08-20-2022 13:59-0500 Blood Pressure Location Lupis [facility] 08-20-2022 13:59-0500 Body temperature 96.98 [degF] [facility]up[facility] 08-20-2022 13:59-0500 Diastolic blood pressure 102 mm[Hg] [facility] 08-20-2022 13:59-0500 Heart rate 77 /min [facility] 08-20-2022 13:59-0500 Respiratory rate 28 /min [facility]up[facility] 08-20-2022 13:59-0500 SaO2% (BldA) [Mass fraction] 97 % [facility]up[facility] 08-20-2022 13:59-0500 Systolic blood pressure 178 mm[Hg] [facility]up[facility] 12-30-2021 11:01-0400 Blood Pressure Location Parish RUBIO [facility] [place] 12-30-2021 11:01-0400 Body temperature 98.42 [degF] Parish RUBIO [facility] 12-30-2021 11:01-0400 Diastolic blood pressure 90 mm[Hg] Parish RUBIO [facility] [place] 12-30-2021 11:01-0400 Heart rate 73 /min Parish RUBIO [facility] 12-30-2021 11:01-0400 SaO2% (BldA) [Mass fraction] 96 % Parish RUBIO [facility] 12-30-2021 11:01-0400 Systolic blood pressure 124 mm[Hg] Parish RUBIO [facility] [place] 07-09-2021 08:54-0500 Body height 167.6 cm [employer] Work Phone: [employer] 07-09-2021 08:54-0500 Body mass index (BMI) [Ratio] 55.17 kg/m2 [employer] Work Phone: [employer] 07-09-2021 08:54-0500 Body weight 155.04 kg [employer] Work Phone: [employer] 07-02-2021 09:46-0500 Body height 167.6 cm [employer] Work Phone: [employer] 07-02-2021 09:46-0500 Body mass index (BMI) [Ratio] 56.27 kg/m2 [employer] Work Phone: [employer] 07-02-2021 09:46-0500 Body weight 158.12 kg [employer] Work Phone: [employer] 03-17-2020 12:10-0400 BP Diastolic 84 mm[Hg] [facility]ill[facility]ana [facility] [place] 03-17-2020 12:10-0400 BP Systolic 133 mm[Hg] Glenn Mainorrejilillieileana [employer] [place] 03-17-2020 12:10-0400 Pulse (Heart Rate) 62 /min Glenn Malik [facility] 03-17-2020 12:10-0400 Pulse Oximetry 99 % Glenn Malik [facility] [place] , [place] 03-17-2020 12:10-0400 Respiratory Rate 18 /min Glenn Braxton [facility] 03-17-2020 11:39-0400 Body Temperature 98.4 [degF] [facility] [place] 03-17-2020 08:43-0400 BMI (Body Mass Index) 51.84 kg/m2 Glenn Malik [facility] [place], [place] 03-17-2020 08:43-0400 Body weight 150.14 kg Glenn Malik [facility] , [place] 03-17-2020 08:43-0400 Height 170.2 cm Glenn Malik [facility] , [place] 09-07-2019 13:09-0500 Pulse Oximetry 97 % [facility] Irais [facility] , [place] Encounters Encounter Date Encounter Type Care Provider Facility Start: 04-09-2025 End: 04-09-2025 [facility] Start: 04-09-2025 End: 04-09-2025 Patient encounter procedure Myron Rust [facility] [place] Start: 04-03-2025 End: 04-03-2025 ambulatory 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 Work 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: [facility] Work Phone: Start: 04-03-2025 End: 04-03-2025 Patient encounter procedure Glenn Perkins [facility] Work Phone: Start: 03-12-2025 End: 03-12-2025 ambulatory XXXX NONE Facility:[facility] Start: 03-05-2025 End: 03-05-2025 ambulatory Myron Rust Facility: [facility] Start: 03-05-2025 End: 03-05-2025 Patient encounter procedure Myron Rust [facility] [place] Start: 02-11-2025 End: 02-11-2025 ambulatory Calvin Palmer MD Facility: [facility] Start: 02-04-2025 End: 02-04-2025 ambulatory Myron Rust Facility:[facility] Start: 02-04-2025 End: 02-04-2025 Patient encounter procedure Myron Rust [facility] [place] Start: 01-29-2025 End: 01-29-2025 ambulatory XXXX NONE Facility:[facility] Start: 01-24-2025 End: 01-24-2025 Emergency department patient visit Oneal Newman Facility:[facility] Start: 01-21-2025 End: 01-21-2025 ambulatory Calvin Palmer MD Facility: [facility] Start: 01-07-2025 End: 01-07-2025 ambulatory Myron Rust Facility:[facility] Start: 01-07-2025 End: 01-07-2025 Patient encounter procedure Myron Rust [facility] Start: 01-02-2025 End: 01-02-2025 Lab Drop off Myron Rust [facility] Start: 01-02-2025 End: 01-02-2025 ambulatory Myron Rust Facility:[facility] Start: 01-02-2025 End: 01-02-2025 Patient encounter procedure Myron Rust [facility] [place] Start: 01-01-2025 End: 01-01-2025 ambulatory Rick Hernandez Facility:[facility] Start: 01-01-2025 End: 01-01-2025 Patient encounter procedure Rick Hernandez [facility] Start: 12-31-2024 End: 01-31-2025 ambulatory Myron L. Yocasta Facility:[facility]:[id number] Start: 12-27-2024 End: 12-29-2024 Evaluation and management of inpatient Abisai Kaur Facility:[facility] Start: 12-27-2024 Emergency department patient visit Whit Simms Facility:[facility] Start: 12-27-2024 End: 12-29-2024 Evaluation and management of inpatient Abisai Fontaineermoshe III [facility] Start: 12-19-2024 End: 12-19-2024 ambulatory Myron L. Yocasta Facility:[facility] Start: 12-19-2024 End: 12-19-2024 Patient encounter procedure Myron L. Yocasta [facility] Start: 12-19-2024 End: 12-19-2024 Lab Drop off Myron Rust [facility] Start: 12-19-2024 End: 12-19-2024 ambulatory Myron MachadoFranco Yocasta Facility: [facility] Start: 12-19-2024 End: 12-19-2024 Patient encounter procedure Myron Rust [facility] [place] Start: 11-27-2024 End: 11-27-2024 ambulatory Myron LFranco Yocasta Facility: [facility] Start: 11-27-2024 End: 11-27-2024 Patient encounter procedure Myron Joy Yocasta [facility] [place] Start: 11-07-2024 End: 11-07-2024 Office outpatient new 60 minutes S Dylon Dean MD Work Phone: [facility] Comment on above: Gastroesophageal ref lux disease, unspecified whether esophagitis present (Primary Dx); Morbid obesity with BMI of 50.0-59.9, adult; BRENDA (obstructive sleep apnea); Type 2 diabetes mellitus without complication, without long-term current use of insulin Start: 11-07-2024 ambulatory Coco Fan [facility] Start: 10-29-2024 End: 10-29-2024 ambulatory Calvin Palmer MD Facility: [facility] Start: 09-12-2024 End: 09-12-2024 Lab Drop off Myron Rust [facility] Start: 09-12-2024 End: 09-12-2024 ambulatory Myron Rust Facility: [facility] Start: 08-29-2024 End: 08-29-2024 ambulatory Myron Rust Facility: [facility] Start: 08-29-2024 End: 08-29-2024 Patient encounter procedure Myron Rust [facility] [place] Start: 07-23-2024 End: 07-23-2024 ambulatory Calvin Palmer MD Facility: [facility] Start: 07-18-2024 End: 07-18-2024 ambulatory Myron Rust Facility: [facility] Start: 07-18-2024 End: 07-18-2024 Patient encounter procedure Myron Rust [facility] [place] Start: 07-13-2024 End: 07-13-2024 Lab Drop off Myron Rust [facility] Start: 07-13-2024 End: 07-13-2024 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, WARDROBE CUSTODIAN-CHART COLLECTOR Myron Rust Facility:[facility] Start: 07-13-2024 End: 07-13-2024 Patient encounter procedure Myron Rust [facility] [place] Start: 07-11-2024 End: 07-11-2024 ambulatory Myron Rust Facility: [facility] Start: 07-11-2024 End: 07-11-2024 Patient encounter procedure Myron Rust [facility] [place] Start: 06-05-2024 End: 06-05-2024 ambulatory AISHA Hernandez Facility:[facility] Start: 06-05-2024 End: 06-05-2024 Patient encounter procedure Rick Hernandez [facility] Start: 05-21-2024 End: 05-21-2024 ambulatory Calvin Palmer MD Facility:[facility] Start: 02-22-2024 End: 02-22-2024 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, WARDROBE CUSTODIAN-CHART COLLECTOR Myron Rust Facility: [place] Start: 02-22-2024 End: 02-22-2024 Patient encounter procedure Myron Rust [facility] [place] Start: 02-10-2024 End: 09-01-2024 Pre-admission assessment Cardoso Talal Sarmini [facility] Start: 01-27-2024 End: 01-27-2024 ambulatory Cardoso Talal Sarmini [facility] Start: 01-27-2024 End: 01-27-2024 Patient encounter procedure Cardoso Talal Sarmini [facility] Start: 12-23-2023 End: 12-23-2023 ambulatory Cardoso Talal Sarmini Facility:[facility] Start: 12-23-2023 End: 12-23-2023 Patient encounter procedure Walker Phillip [facility] Start: 12-19-2023 End: 12-21-2023 ambulatory KAMALJIT J [facility] Start: 12-06-2023 End: 12-06-2023 ambulatory Alirio Ramirez Facility:[facility] Start: 12-06-2023 End: 12-06-2023 Patient encounter procedure Alirio Ramirez [facility] Start: 11-25-2023 End: 11-25-2023 ambulatory LUIS, WARDROBE CUSTODIAN-CHART COLLECTOR yMron Rust Facility:[facility] Start: 11-25-2023 End: 11-25-2023 Patient encounter procedure Myron Rust [facility] Start: 11-17-2023 End: 11-17-2023 [facility] Start: 11-10-2023 ambulatory LUIS, WARDROBE CUSTODIAN-IRVING Rust Facility:[facility] Start: 11-08-2023 End: 11-08-2023 ambulatory Alirio Ramirez Facility:[facility] Start: 11-08-2023 End: 11-08-2023 Patient encounter procedure Alirio Ramirez [facility] Start: 11-02-2023 End: 11-02-2023 ambulatory Walker Phillip [facility] Start: 11-02-2023 End: 11-02-2023 Patient encounter procedure Walker Phillip [facility] Start: 10-26-2023 End: 10-26-2023 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, WARDROBE CUSTODIAN-CHART COLLECTOR Myron Rust Facility:[facility] Start: 10-26-2023 End: 10-26-2023 Patient encounter procedure Myron Rust [facility] [place] Start: 10-25-2023 End: 10-25-2023 ambulatory XXXX NONE Facility:[facility] Start: 10-25-2023 End: 10-25-2023 Patient encounter procedure Alirio Ramirez [facility] Start: 10-11-2023 End: 10-11-2023 ambulatory LUIS, WARDROBE CUSTODIAN-CHART COLLECTOR Myron Rust Facility:[facility] Start: 10-11-2023 End: 10-11-2023 [facility] Start: 10-06-2023 End: 10-06-2023 Emergency department patient visit [facility] Start: 08-30-2023 End: 09-01-2023 ambulatory [facility] Start: 08-24-2023 End: 08-27-2023 ambulatory [facility] Start: 08-10-2023 End: 08-12-2023 ambulatory [facility] Start: 08-10-2023 End: 08-12-2023 Subsequent hospital visit by physician Krysten Additional Xray At [facility] Comment on above: Right hip pain Start: 08-10-2023 End: 08-10-2023 Patient encounter procedure Myron Rust [facility] [place] Start: 07-21-2023 End: 07-21-2023 Subsequent hospital visit by physician Arlene Dickens [facility] Start: 07-20-2023 End: 07-20-2023 Subsequent hospital visit by physician Monico Sheppard PTA [facility] Start: 07-14-2023 End: 07-14-2023 Subsequent hospital visit by physician Arlene Dickens [facility] Start: 07-11-2023 End: 07-11-2023 [facility] Start: 07-08-2023 End: 07-08-2023 Subsequent hospital visit by physician Arlene Dickens [facility] Start: 07-07-2023 End: 07-07-2023 [facility] Start: 07-06-2023 End: 07-06-2023 Subsequent hospital visit by physician Arlene Dickens [facility] Start: 07-06-2023 [facility] Start: 06-21-2023 End: 06-21-2023 [facility] Start: 05-10-2023 End: 06-14-2023 Pre-admission assessment Justyna Grijalva [facility] Start: 05-09-2023 End: 05-09-2023 Patient encounter procedure Ansley Carrero [facility] Start: 04-29-2023 End: 04-29-2023 Emergency department patient visit [facility] Start: 04-26-2023 End: 04-26-2023 Patient encounter procedure Myron Rust [facility] Start: 03-18-2023 End: 03-18-2023 Patient encounter procedure Myron Rust [facility] Start: 12-01-2022 End: 12-03-2022 [facility] Comment on above: Fatigue, unspecified type; Screening, lipid Start: 11-26-2022 End: 11-26-2022 [facility] Start: 10-19-[facility]22 ambulatory Facility:[id number] Start: 10-19-2022 End: 01-18-2023 Recurring Carmen Haley [facility] Start: 10-19-2022 End: 10-21-2022 Subsequent hospital visit by physician [facility] Additional Xray At [facility] Radiology Comment on above: Left hand weakness Weakness of both leg s Start: 10-14-2022 End: 10-15-2022 Emergency department patient visit Demetra Cruz MD Work Phone: [facility] ED Comment on above: Alcohol abuse (Prima ry Dx) Start: 10-13-2022 End: 10-13-2022 Subsequent hospital visit by physician Mulu Taylor CNP Work Phone: [facility] Start: 10-13-2022 End: 10-14-2022 Pre-admission assessment Carmen Haley [facility] Start: 10-06-2022 End: 10-06-2022 Lab Drop off Lupis SCHWARTZ [facility] Start: 10-06-2022 End: 10-06-2022 Patient encounter procedure Lupis SCHWARTZ [facility] Start: 09-29-2022 End: 09-29-2022 Lab Drop off Carmen Haley [facility] Start: 09-29-2022 End: 09-30-2022 Pre-admission assessment Carmen Haley [facility] Start: 09-27-2022 End: 09-27-2022 Lab Drop off Myron Joy Rust [facility] Start: 09-27-2022 End: 09-27-2022 Patient encounter procedure Myron Rust [facility] [place] Start: 09-24-2022 End: 09-24-2022 [facility] Start: 09-22-2022 End: 09-22-2022 Patient encounter procedure Carmen Haley [facility] Start: 09-13-2022 ambulatory Facility:U Start: 09-10-2022 End: 09-14-2022 Evaluation and management of inpatient Obaydah M Daromar Facility:[facility] Start: 09-10-2022 ambulatory Facility: [id number] Start: 09-10-2022 End: 09-14-2022 Evaluation and management of inpatient [facility] Work Phone: Start: 09-06-2022 End: 09-06-2022 Lab Drop off Lupis SCHWARTZ [facility] Start: 09-06-2022 End: 09-06-2022 [facility] Start: 08-27-2022 End: 08-27-2022 Subsequent hospital visit by physician Krysten Echo Room Irais Yarbrough [facility] ECHO Comment on above: Hypertension, unspec ified type; Bilateral leg edema Start: 08-20-2022 End: 08-20-2022 Lab Drop off Lupis SCHWARTZ [facility] Start: 08-20-2022 End: 08-20-2022 Patient encounter procedure Lupis SCHWARTZ [facility] Start: 12-30-2021 End: 12-30-2021 Patient encounter procedure Parish A JOANNE [facility] [place] Start: 07-13-2021 End: 07-13-2021 Subsequent hospital visit by physician Case Parish RD, LD Work Phone: [facility] Comment on above: Arrived Start: 07-09-2021 End: 07-09-2021 Subsequent hospital visit by physician [facility] Diabetes Education Work Phone: [facility] Start: 07-02-2021 End: 07-02-2021 Subsequent hospital visit by physician [facility] Work Phone: [facility] Start: 05-21-2021 End: 05-23-2021 Subsequent hospital visit by physician [facility] Additional Xray At [facility] Radiology Comment on above: SOB (shortness of br eath); Obstructive sleep apnea (adult) (pediatric); Moderate persistent asthma without complication Start: 05-21-2021 End: 05-23-2021 Subsequent hospital visit by physician [facility] Pulmonary Function Rm [facility] PFT Comment on above: SOB (shortness of br eath); Obstructive sleep apnea syndrome; Moderate persistent asthma without complication; Tobacco abuse Start: 03-17-2020 End: 03-17-2020 Subsequent hospital visit by physician Glenn Malik Work Phone: [facility] Start: 03-17-2020 End: 03-17-2020 Subsequent hospital visit by physician [facility] Covid19 Pat Screening Schedule [facility] PRE ADMIT Comment on above: Arrived Start: 02-19-2020 End: 02-21-2020 Subsequent hospital visit by physician Paul Ultrasound Room [facility] Ultrasound Comment on above: Hypertrophy of uteru s; Right lower quadrant pain Start: 02-07-2020 End: 02-09-2020 Subsequent hospital visit by physician Krysten Cat Scan Room [facility] CT Scan Comment on above: RLQ abdominal [...] unilateral with pelvis 2-3 views Myronross Rebolledoant WARDROBE CUSTODIAN - CHART COLLECTOR Work Phone: Start: 08-10-2023 Comprehensive metabo lic panel Myron Rebolledoant WARDROBE CUSTODIAN - CHART COLLECTOR Work Phone: Start: 08-10-2023 Lipid panel Myron Fair nt WARDROBE CUSTODIAN - CHART COLLECTOR Work Phone: Start: 08-10-2023 Urine albumin quantitative Myron Rust WARDROBE CUSTODIAN - CHART COLLECTOR Work Phone: Start: 12-01-2022 Dup-scan xtr veins [...] 10-13-2022 Creatine kinase total K althea Olveracortes WARDROBE CUSTODIAN - CHART COLLECTOR Work Phone: Start: 09-10-2022 Respiratory Panel (PCR) DO Joo Ramos Work Phone: Start: 09-10-2022 Plain chest X-ray Start: 05-21-2021 Radiologic exam ches t 2 views Mulu Prafullesleemanasar WARDROBE CUSTODIAN - CHART COLLECTOR Work Phone: Start: 03-17-2020 Nebulizer therapy Glenn [...] RSV VACCINE (1 - 1-dose 75+ series) [facility] Start: 04-10-2030 DTaP/Tdap/Td vaccine (3 - Td or Tdap) DTaP/Tdap/Td vaccine (3 - Td or Tdap) [facility] Start: 04-10-2030 Tetanus vaccination TETANUS [facility] Start: 03-17-2030 Screening for malignant neoplasm of colon [facility] Start: 11-16-2027 Pneumococcal 0-64 years Vaccine (2 of 2 - PPSV23) Pneumococcal 0-64 years Vaccine (2 of 2 - PPSV23) [facility] Start: 11-07-2024 End: 11-07-2025 B12/folate level B12 & FOLATE Lab Routine Gastroesophageal reflux disease, unspecified whether esophagitis present Morbid obesity with BMI of 50.0-59.9, adult BRENDA (obstructive sleep apnea) Type 2 diabetes mellitus without complication, without long-term current use of insulin Expected: 11/07/2024, Expires: 11/07/2025 [facility] Comment on above: Expected: 11/07/2024, Expires: Start: 11-07-2024 End: 11-07-2025 Basic metabolic 2000 panel - Serum or Plasma BASIC METABOLIC PANEL Lab Routine Gastroesophageal reflux disease, unspecified whether esophagitis present Morbid obesity with BMI of 50.0-59.9, adult BRENDA (obstructive sleep apnea) Type 2 diabetes mellitus without complication, without long-term current use of insulin Expected: 11/07/2024, Expires: 11/07/2025 [facility] Comment on above: Expected: 11/07/2024, Expires: Start: 11-07-2024 End: 11-07-2025 CBC,PLATELETS CBC,PLATELETS Lab Routine Gastroesophageal reflux disease, unspecified whether esophagitis present Morbid obesity with BMI of 50.0-59.9, adult BRENDA (obstructive sleep apnea) Type 2 diabetes mellitus without complication, without long-term current use of insulin Expected: 11/07/2024, Expires: 11/07/2025 [facility] Comment on above: Expected: 11/07/2024, Expires: Start: 11-07-2024 End: 11-07-2025 DIAGNOSTIC UPPER ENDOSCOPY DIAGNOSTIC UPPER ENDOSCOPY GI/Bronch Routine Gastroesophageal reflux disease, unspecified whether esophagitis present Expected: 11/07/2024, Expires: 11/07/2025 [facility] Comment on above: Expected: 11/07/2024, Expires: Start: 11-07-2024 End: 11-07-2025 Ferritin [Mass/volume] in Serum or Plasma FERRITIN Lab Routine Gastroesophageal reflux disease, unspecified whether esophagitis present Morbid obesity with BMI of 50.0-59.9, adult BRENDA (obstructive sleep apnea) Type 2 diabetes mellitus without complication, without long-term current use of insulin Expected: 11/07/2024, Expires: 11/07/2025 [facility] Comment on above: Expected: 11/07/2024, Expires: Start: 11-07-2024 End: 11-07-2025 Hemoglobin A1c/Hemoglobin.total in Blood HEMOGLOBIN A1C Lab Routine Gastroesophageal reflux disease, unspecified whether esophagitis present Morbid obesity with BMI of 50.0-59.9, adult BRENDA (obstructive sleep apnea) Type 2 diabetes mellitus without complication, without long-term current use of insulin Expected: 11/07/2024, Expires: 11/07/2025 [facility] Comment on above: Expected: 11/07/2024, Expires: Start: 11-07-2024 End: 11-07-2025 Hepatic function 2000 panel - Serum or Plasma HEPATIC FUNCTION PANEL Lab Routine Gastroesophageal reflux disease, unspecified whether esophagitis present Morbid obesity with BMI of 50.0-59.9, adult BRENDA (obstructive sleep apnea) Type 2 diabetes mellitus without complication, without long-term current use of insulin Expected: 11/07/2024, Expires: 11/07/2025 [facility] Comment on above: Expected: 11/07/2024, Expires: Start: 11-07-2024 End: 11-07-2025 IRON/IRON BINDING/TRANSFERRIN IRON/IRON BINDING/TRANSFERRIN Lab Routine Gastroesophageal reflux disease, unspecified whether esophagitis present Morbid obesity with BMI of 50.0-59.9, adult BRENDA (obstructive sleep apnea) Type 2 diabetes mellitus without complication, without long-term current use of insulin Expected: 11/07/2024, Expires: 11/07/2025 [facility] Comment on above: Expected: 11/07/2024, Expires: Start: 11-07-2024 End: 11-07-2025 LIPID PANEL W CALCULATED LDL LIPID PANEL W CALCULATED LDL Lab Routine Gastroesophageal reflux disease, unspecified whether esophagitis present Morbid obesity with BMI of 50.0-59.9, adult BRENDA (obstructive sleep apnea) Type 2 diabetes mellitus without complication, without long-term current use of insulin Expected: 11/07/2024, Expires: 11/07/2025 [facility] Comment on above: Expected: 11/07/2024, Expires: Start: 11-07-2024 End: 11-07-2025 Magnesium [Mass/volume] in Serum or Plasma MAGNESIUM Lab Routine Gastroesophageal reflux disease, unspecified whether esophagitis present Morbid obesity with BMI of 50.0-59.9, adult BRENDA (obstructive sleep apnea) Type 2 diabetes mellitus without complication, without long-term current use of insulin Expected: 11/07/2024, Expires: 11/07/2025 [facility] Comment on above: Expected: 11/07/2024, Expires: Start: 11-07-2024 End: 11-07-2025 PHOSPHATE, INORGANIC PHOSPHATE, INORGANIC Lab Routine Gastroesophageal reflux disease, unspecified whether esophagitis present Morbid obesity with BMI of 50.0-59.9, adult BRENDA (obstructive sleep apnea) Type 2 diabetes mellitus without complication, without long-term current use of insulin Expected: 11/07/2024, Expires: 11/07/2025 [facility] Comment on above: Expected: 11/07/2024, Expires: Start: 11-07-2024 End: 11-07-2025 PROTIME-INR PROTIME-INR Lab Routine Gastroesophageal reflux disease, unspecified whether esophagitis present Morbid obesity with BMI of 50.0-59.9, adult BRENDA (obstructive sleep apnea) Type 2 diabetes mellitus without complication, without long-term current use of insulin Expected: 11/07/2024, Expires: 11/07/2025 [facility] Comment on above: Expected: 11/07/2024, Expires: Start: 11-07-2024 End: 11-07-2025 PTH INTACT PTH INTACT Lab Routine Gastroesophageal reflux disease, unspecified whether esophagitis present Morbid obesity with BMI of 50.0-59.9, adult BRENDA (obstructive sleep apnea) Type 2 diabetes mellitus without complication, without long-term current use of insulin Expected: 11/07/2024, Expires: 11/07/2025 [facility] Comment on above: Expected: 11/07/2024, Expires: Start: 11-07-2024 End: 11-07-2025 TSH W/FT4 REFLEX TSH W/FT4 REFLEX Lab Routine Gastroesophageal reflux disease, unspecified whether esophagitis present Morbid obesity with BMI of 50.0-59.9, adult BRENDA (obstructive sleep apnea) Type 2 diabetes mellitus without complication, without long-term current use of insulin Expected: 11/07/2024, Expires: 11/07/2025 [facility] Comment on above: Expected: 11/07/2024, Expires: Start: 11-07-2024 End: 11-07-2025 VITAMIN D (25-HYDROXY,TOTAL) VITAMIN D (25-HYDROXY,TOTAL) Lab Routine Gastroesophageal reflux disease, unspecified whether esophagitis present Morbid obesity with BMI of 50.0-59.9, adult BRENDA (obstructive sleep apnea) Type 2 diabetes mellitus without complication, without long-term current use of insulin Expected: 11/07/2024, Expires: 11/07/2025 [facility] Comment on above: Expected: 11/07/2024, Expires: Start: 10-27-2024 DTaP/Tdap/Td vaccine (2 - Td) DTaP/Tdap/Td vaccine (2 - Td) [place] Start: 03-04-2024 COVID-19 VACCINE ( season) COVID-19 VACCINE ( season) [facility] Start: 07-21-2023 End: 07-21-2023 Patient encounter procedure 07/21/2023 10:30 AM EST Appointment [facility] [address] [place] [address] Arlene Dickens [facility] Comment on above: [facility] Start: 07-19-2023 End: 07-19-2023 Patient encounter procedure 07/19/2023 10:30 AM EST Appointment [facility] [address] [place] [address] Ana Blank, PT [facility] Comment on above: [facility] Start: 07-14-2023 End: 07-14-2023 Patient encounter procedure 07/14/2023 10:30 AM EST Appointment [facility] [address] [place] [address] Arlene Dickens [facility] Comment on above: [facility] Start: 07-11-2023 End: 07-11-2023 Patient encounter procedure 07/11/2023 10:30 AM EST Appointment [facility] [address] [place] [address] Ana Blank, PT [facility] Comment on above: [facility] Start: 12-15-2022 End: 12-15-2022 Patient encounter procedure 12/15/2022 Office Visit Gastroenterology Racheal Braden, WARDROBE CUSTODIAN - CHART COLLECTOR [address] [address] [facility] Start: 2022 Respiratory Syncytial Virus (RSV) or age 60 yrs+ (1 - 1-dose 60+ series) Respiratory Syncytial Virus (RSV) or age 60 yrs+ (1 - 1-dose 60+ series) [facility] Start: 10-26-2022 End: 10-26-2022 Patient encounter procedure 10/26/2022 Office Visit Cardiology Joselito Hsu MD [address] [place] [address] 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 Start: 09-14-2022 [facility] Start: 09-11-2022 Comprehensive metabolic 2000 panel - Serum or Plasma [facility] Start: 09-11-2022 [facility] Start: 09-10-2022 [facility] Start: 09-10-2022 [facility] Start: 09-10-2022 Referral to Catalogue Maker [facility] Start: 09-10-2022 End: 09-10-2022 [facility] Start: 09-10-2022 Hospital admission [facility] Start: 09-10-2022 [facility] Start: 09-08-2021 End: 09-08-2021 Patient encounter procedure 09/08/2021 Appointment Diabetes Services [facility] Diabetic Education Start: 07-13-2021 End: 07-13-2021 Patient encounter procedure 07/13/2021 Appointment IP Unit [address], LD [facility] Diet and Nutrition Start: 07-09-2021 End: 07-09-2021 Patient encounter procedure 07/09/2021 Appointment Diabetes Services [facility] Diabetic Education Start: 07-06-2021 End: 07-06-2021 Patient encounter procedure 07/06/2021 Appointment IP Unit [address], LD [facility] Diet and Nutrition Start: 04-10-2021 Pneumococcal 0-64 years Vaccine (2 - PCV) Pneumococcal 0-64 years Vaccine (2 - PCV) [facility] Start: 04-10-2021 Pneumococcal vaccination PNEUMOCOCCAL VACCINE SERIES (2 of 2 - PCV) [facility] Start: 04-07-2021 COVID-19 Vaccine (3 - Booster for Pfizer series) COVID-19 Vaccine (3 - Booster for Pfizer series) [facility] Start: 02-06-2021 Creatinine measurement Creatinine monitoring [facility] Start: 09-29-2020 Breast cancer screen Breast cancer screen [place], [place] Start: 09-29-2020 Screening for malignant neoplasm of breast Breast cancer screen [facility] Start: 09-05-2020 A1C test (Diabetic or Prediabetic) A1C test (Diabetic or Prediabetic) [place] Start: 09-05-2020 Creatinine monitoring Creatinine monitoring [place], [place] Start: 09-05-2020 HbA1c (Bld) [Mass fraction] A1C test (Diabetic or Prediabetic) [place] Start: 09-05-2020 Hemoglobin A1c measurement A1C test (Diabetic or Prediabetic) [facility] Start: 09-05-2020 Lipid panel [facility] Start: 09-05-2020 Lipid screen Lipid screen [place] Start: 09-05-2020 Potassium monitoring Potassium monitoring [facility] Start: 09-03-2020 Shingles Vaccine (2 of 3) Shingles Vaccine (2 of 3) [facility] Start: 09-03-2020 Shingles vaccine (3 of 3) Shingles vaccine (3 of 3) [facility] Start: 03-31-2020 End: 03-31-2020 Office Visit 03/31/2020 Office Visit General Surgery Glenn Malik MD [address] [facility] [address] [place] [address] [facility] Cryptographic Technician [facility] Start: 03-04-2020 Influenza vaccination Flu vaccine (#1) [place] Start: 02-28-2020 End: 02-28-2020 Office Visit 02/28/2020 Office Visit General Surgery Glenn Malik MD [address] [facility] [address] [place] [address] [facility] Cryptographic Technician [facility] Start: 09-30-2019 Screening for malignant neoplasm of breast MAMMOGRAM SCREENING DISCUSSION [facility] Start: 09-07-2019 End: 09-07-2019 Appointment 09/07/2019 Appointment Pulmonary Function Testing [facility] Start: 06-19-2019 Creatinine monitoring Creatinine monitoring [place], [place] Start: 06-19-2019 Potassium monitoring Potassium monitoring [place], [place] Start: 2012 Colon cancer screen colonoscopy Colon cancer screen colonoscopy [place], [place] Start: 2012 Screening for malignant neoplasm of colon Colon cancer screen colonoscopy [place], [place] Start: 2012 Shingles Vaccine (1 of 2) Shingles Vaccine (1 of 2) [place] Start: 11-16-2007 Screening for malignant neoplasm of colon [facility] Start: 2002 Lipid panel LIPID SCREENING [facility] Start: 1992 Screening for malignant neoplasm of cervix [facility] Start: 11-16-1983 Cervical cancer screen Cervical cancer screen [place], [place] Start: 11-16-1983 Screening for malignant neoplasm of cervix [facility] Start: 1980 Hepatitis C screening Hepatitis C screen [facility] Start: 1977 HIV screen HIV screen [place], [place] Start: 1977 HIV screening [facility] Start: 1974 Depression Screen Depression Screen [facility] Start: 1972 Lipid screen Lipid screen [place], [place] Start: 1962 Hepatitis C screen [facility] Start: [address] [facility] Touchbase Calculated LDL cholesterol level [facility] End: 03-17-2020 CEA CEA Lab Routine One Time for 1 Occurrences starting 03/17/2020 until 03/17/2020 [facility] Comment on above: One Time for 1 Occurrences starting 03/04 until 03/17/2020 CEA CEA Lab Routine 03/17/2020 12:00 PM EDT [facility] Cholesterol.total/Ch ol esterol in HDL [Mass Ratio] in Serum or Plasma [facility] End: 08-27-2022 Echocardiogram complete Echocardiogram complete Echocardiography Routine Hypertension, unspecified type Bilateral leg edema 1 Occurrences starting 08/27/2022 until 08/27/2022 [employer] Phone: Comment on above: 1 Occurrences starting 08/27/2022 until 08/27/2022 EKG 12 Lead EKG 12 Lead ECG Routine Syncope and collapse Pre-operative clearance Essential hypertension Hyperlipidemia, unspecified hyperlipidemia type Vitamin D deficiency 09/06/2019 11:05 AM EST [facility] EKG 12 Lead EKG 12 Lead ECG STAT 10/14/2022 9:44 PM EDT [employer] Phone: End: 09-07-2019 Full PFT Study With Bronchodilator Full PFT Study With Bronchodilator PFT Routine SOB (shortness of breath) 1 Occurrences starting 09/07/2019 until 09/07/2019 [facility] Comment on above: 1 Occurrences starting 09/07/2019 until 09/07/2019 End: 05-21-2021 Full PFT Study With Bronchodilator Full PFT Study With Bronchodilator PFT Routine SOB (shortness of breath) Obstructive sleep apnea syndrome Moderate persistent asthma without complication Tobacco abuse 1 Occurrences starting 05/21/2021 until 05/21/2021 [employer] Phone: Comment on above: 1 Occurrences starting 05/21/2021 until 05/21/2021 Glucose measurement estimated from glycated hemoglobin [facility] [employer]OR[employer] [facility] Comment on above: Release Upon Ordering for 1 Occurrences starting 03/17/2020 Hemoglobin A1c/Hemoglobin.total in Blood [facility] End: 08-10-2023 Hemoglobin A1c/Hemoglobin.total in Blood [employer] Work Phone: Comment on above: Once for 1 Occurrences starting 08/10/19 until 08/10/2023 Oxygen therapy [Minimum Data Set] Initiate Oxygen Therapy Protocol Respiratory Care Routine Daily until discontinued starting 03/17/2020 [facility] Comment on above: Daily until discontinued starting 2019 End: 10-14-2022 Oxygen therapy [Minimum Data Set] Initiate Oxygen Therapy Protocol Respiratory Care STAT One Time for 1 Occurrences starting 10/14/2022 until 10/14/2022 [employer] Work Phone: Comment on above: One Time for 1 Occurrences starting 10/02 until 10/14/2022 Patient Education Heart Failure, Adult (DC) [facility] Work Phone: End: 08-10-2023 Patient Fasting? [employer] [facility] Comment on above: Once for 1 Occurrences starting 08/10/19 until 08/10/2023 Patient referral [facility] Work Phone: Surgical Pathology Surgical Path ology Lab Routine Release Upon Ordering for 1 Occurrences starting 03/17/2020 [facility] Comment on above: Release Upon Ordering for 1 Occurrences starting 03/17/2020 End: 02-19-2020 US NON OB TRANSVAGINAL US NON OB TRANSVAGINAL Imaging Routine Hypertrophy of uterus Right lower quadrant pain 1 Occurrences starting 02/19/2020 until 02/19/2020 [facility] Comment on above: 1 Occurrences starting 02/19/2020 until 02/19/2020 US NON OB TRANSVAGINAL US NON OB TRANSVAGINAL Imaging Routine Hypertrophy of uterus Right lower quadrant pain 02/19/2020 2:36 PM EDT [facility] VLDL cholesterol measurement [facility] XR Lumbar spine Views [facility] Immunizations Immunization Date Immunization Notes Care Provider Fa cility 07-11-2024 influenza, seasonal, injectable, preservative free; Translations: [Fluzone TIV PF ] Myron Rust [facility] 03-18-2023 influenza, injectabl e, quadrivalent, preservative free Myron Rust [facility] 05-11-2022 influenza virus vaccine, unspecified formulation Lupis SCHWARTZ [facility] 05-11-2022 SARS-CoV-2 (COVID-19 ) [id number] Lupis SCHWARTZ [facility] 12-15-2021 COVID-19 mRNA, Comirnaty (Pfizer) [facility] 12-15-2021 SARS-CoV-2 mRNA (lwulvewiyns-ixub-ecnqh se) vaccine Lupis SCHWARTZ [facility] 06-12-2021 SARS-CoV-2 (COVID-19 ) mRNA BNT-162b2 vax Lupis SCHWARTZ [facility] 05-05-2021 influenza virus vaccine, unspecified formulation Lupis SCHWARTZ [facility] 10-06-2020 SARS-CoV-2 (COVID-19 ) mRNA BNT-162b2 CanDiagx Lupis [employer] [facility] 09-16-2020 SARS-CoV-2 (COVID-19 ) mRNA BNT-162b2 [employer] Lupis [employer] [facility] 07-09-2020 zoster vaccine, live Parish CALZADA [facility] 04-10-2020 influenza virus vaccine, unspecified formulation Parish RUBIO [facility] 04-10-2020 pneumococcal polysaccharide vaccine, 23 valent Parish RUBIO [facility] 04-10-2020 tetanus toxoid, unspecified formulation Parish RUBIO [facility] 04-10-2020 zoster vaccine, live Parish Machado YNCH [facility] 05-08-2019 influenza virus vaccine, unspecified formulation Parish RUBIO [facility] 04-24-2018 influenza virus vaccine, unspecified formulation Parish RUBIO [facility] 03-19-2018 influenza virus vaccine, unspecified formulation [facility] 12-16-2017 pneumococcal polysaccharide vaccine, 23 valent Lupis SCHWARTZ [facility] 10-27-2014 tetanus toxoid, redu karen diphtheria toxoid, and acellular pertussis vaccine, adsorbed Lupis SCHWARTZ [facility] Payers Date Payer Category Payer Medicaid (Managed Care) [facility] [id number] 2024 Medicaid [id number] 2023 Private Health Insurance 2022 Self-pay 2017 Private Health Insurance [facility] xxxxxxxxx 2017-Present [phone] [address] [place] [address] xxxxxxxxx [id number] 2017 Private Health Insurance [id number] 2017 Private Health Insurance [id number]. [id number] 1962 Unknown [id number] 2.16.840.1.792590.3.579.2. 356 1962 Unknown [id number] 2.16.840.1.960062.3.579.2. 356 1962 Unknown [id number] 2.16.840.1.705579.3.579.2. 173 1962 Unknown [id number] 2.16.840.1.330943.3.579.2. 174 1962 Unknown [id number] 2.16.840.1.120734.3.579.2. 174 1962 Unknown [id number] 2.16.840.1.483362.3.579.2. 174 1962 Unknown [id number] 2.16.840.1.910102.3.579.2. 174 1962 Unknown [id number] 2.16.840.1.858307.3.579.2. 174 1962 Unknown [id number] 2.16.840.1.080658.3.579.2. 174 1962 Unknown [id number] 2.16.840.1.927669.3.579.2. 174 1962 Unknown [id number] 2.16.840.1.674522.3.579.2. 174 1962 Unknown [id number] 2.16.840.1.652106.3.579.2. 174 1962 Unknown [id number] 2.16.840.1.323347.3.579.2. 174 1962 Unknown [id number] 2.16.840.1.689310.3.579.2. 1962 Unknown [id number] 2.16.840.1.840558.3.579.2. 1962 Unknown [id number] 2.16.840.1.408047.3.579.2. 1962 Unknown [id number] 2.16.840.1.719774.3.579.2. 1962 Unknown [id number] 2.16.840.1.833490.3.579.2 1962 Unknown [id number] 2.16.840.1.631676.3.579.2. 1962 Unknown [id number] 2.16.840.1.843139.3.579.2 1962 Unknown [id number] 2.16.840.1.945780.3.579.2 1962 Unknown [id number] 2.16.840.1.385087.3.579.2 1962 Unknown [id number] 2.16.840.1.188523.3.579.2 1962 Unknown [id number] 2.16.840.1.432162.3.579.2 1962 Unknown [id number] 2.16.840.1.354628.3.579.2 1962 Unknown [id number] 2.16.840.1.989315.3.579.2 1962 Unknown [id number] 2.16.840.1.308718.3.579.2 1962 Unknown [id number] 2.16.840.1.139752.3.579.2 1962 Unknown [id number] 2.16.840.1.570392.3.579. 1962 Unknown [id number] 2.16.840.1.348406.3.579.2 1962 Unknown [id number] 2.16.840.1.568226.3.579. 1962 Unknown [id number] 2.16.840.1.650177.3.579. 1962 Unknown [id number] 2.16.840.1.286894.3.579. 1962 Unknown [id number] 2.16.840.1.280686.3.579. 1962 Unknown [id number] 2.16.840.1.433262.3.579. 1962 Unknown [id number] 2.16.840.1.108308.3.579. 1962 Unknown [id number] 2.16.840.1.720279.3.579. 1962 Unknown [id number] 2.16.840.1.570177.3.579.2 1962 Unknown [id number] 2.16.840.1.797282.3.579. 1962 Unknown [id number] 2.16.840.1.735707.3.579. 1962 Unknown [id number] 2.16.840.1.258001.3.579. 1962 Unknown [id number] 2.16.840.1.214514.3.579.2. 1962 Unknown [id number] 2.16.840.1.878135.3.579.2. 1962 Unknown [id number] 2.16.840.1.661648.3.579.2. 1962 Unknown [id number] 2.16.840.1.596193.3.579.2. 1962 Unknown [id number] 2.16.840.1.716974.3.579.2. 1962 Unknown [id number] 2.16.840.1.722669.3.579.2 1962 Unknown [id number] 2.16.840.1.622665.3.579.2. 1962 Unknown [id number] 2.16.840.1.984169.3.579.2. 1962 Unknown [id number] 2.16.840.1.970494.3.579.2. 3 1962 Unknown [id number] 2.16.840.1.836380.3.579.2 1962 Unknown [id number] 2.16.840.1.815738.3.579.2. 1962 Unknown [id number] 2.16.840.1.355659.3.579.2. 1962 Unknown [id number] 2.16.840.1.596404.3.579.2. 1962 Unknown [id number] 2.16.840.1.867315.3.579.2. 1962 Unknown [id number] 1960 Unknown [id number] 1960 Unknown [id number] 196 1960 Unknown [id number] 727 1960 Unknown [id number] 727 1960 Unknown [id number] 727 1960 Unknown [id number] 727 1960 Unknown [id number] 727 Unknown [id number] 531 Social History Date Type Detail Facility Start: 09-06-2019 End: 09-10-2022 Tobacco smoking status NHIS Current every day smoker [place], [place] Start: 07-04-1979 History of tobacco use Cigarette Smo ker [place] Start: 09-06-2019 End: 11-07-2024 Cigarettes smoked current (pack per day) - Reported [place] Start: 09-06-2019 End: 11-07-2024 Alcohol intake Current drinker of alcohol (finding) [place] Start: 02-23-2018 Tobacco Comment 5 cigarettes/day [place], [place] Start: 02-23-2018 Alcohol Comment occas. Irais Thurman [place], [place] Start: 1960 Sex Assigned At Not on file [place] Start: 09-06-2019 End: 11-07-2024 Tobacco use and exposure Never used [place] Start: 10-04-2022 End: 10-14-2022 Exposure to SARS-CoV-2 (event) Not sure [place] Start: 12-30-2021 End: 04-09-2025 Tobacco smoking status Heavy tobacco smoker (finding) [facility] [place] Tobacco [facility] status [facility] [place] Start: 10-14-2022 End: 11-07-2024 Sex Assigned At Female Cecilio [facility] [place] Start: 09-10-2022 End: 09-10-2022 Tobacco smoking status NHIS Smoker (finding) [facility] Start: 1960 Sex Assigned At Female F [facility] Start: 10-15-2022 History SDOH Alcohol Frequency 2 [employer] Work Phone: Start: 10-15-2022 History SDOH Alcohol Std Drinks 5 [employer] Work Phone: Start: 10-15-2022 History SDOH Alcohol Binge 4 [employer] Work Phone: Start: 10-14-2022 Alcohol Comment patient had 2 bottles of rum today [employer] Work Phone: How often to you hav e a drink containing alcohol? Monthly or less [employer] How many standard drinks containing alcohol do you have on a typical day? 10 or more [employer] How often do you hav e 6 or more drinks on 1 occasion? Weekly [employer] Start: 11-07-2024 Alcohol Comment occasionally [employer] [facility] Start: 11-08-2016 End: 09-28-2024 Sex Female (finding) [employer] Sexual Orientation [facility] Procedure Code Equipment Code Equipment Origin al Text Equipment Identifier Dates Cement Smartghv W/ Gent 40gr Must Order 20ea [id number] Start: 03-15-2018 Cement Smartghv W/ Gent 40gr Must Order 20ea [id number] Start: 03-15-2018 Cement Smartghv W/ Gent 40gr Must Order 20ea [id number] Start: 04-26-2018 Impl Knee Patell a Asym [id number] Start: 04-26-2018 Lancets, See Instructions, 300 [...] check BS daily dx E11.9, [facility] #[id number], Supply, 163, cm, 12/30/21 11:09:00 EDT, Height/Length Dosing, 154, kg, 12/30/21 11:09:00 EDT, Weight Dosing Start: 04-13-2022 Test Strips, See Instructions, 100 EA, 3, Use to test BS daily dx E11.9, [facility] #[id number], Supply, 163, cm, 12/30/21 11:09:00 EDT, Height/Length Dosing, 154, kg, 12/30/21 11:09:00 EDT, Weight Dosing Start: 04-13-2022 Lancets, See Instructions, 100 EA, 3, Use to check BS daily dx E11.9, [facility] #[id number], Supply, 163, cm, 12/30/21 11:09:00 EDT, Height/Length Dosing, 154, kg, 12/30/21 11:09:00 EDT, Weight Dosing Start: 04-13-2022 Test Strips, See Instructions, 100 EA, 3, Use to test BS daily dx E11.9, [facility] #[id number], Supply, 163, cm, 12/30/21 11:09:00 EDT, Height/Length Dosing, 154, kg, 12/30/21 11:09:00 EDT, Weight Dosing Start: 04-13-2022 Lancets, See Instructions, 100 EA, 3, Use to check BS daily dx E11.9, [facility] #[id number], Supply, 163, cm, 12/30/21 11:09:00 EDT, Height/Length Dosing, 154, kg, 12/30/21 11:09:00 EDT, Weight Dosing Start: 04-13-2022 Test Strips, See Instructions, 100 EA, 3, Use to test BS daily dx E11.9, [facility] #[id number], Supply, 163, cm, 12/30/21 11:09:00 EDT, Height/Length Dosing, 154, kg, 12/30/21 11:09:00 EDT, Weight Dosing Start: 04-13-2022 Lancets, See Instructions, 100 EA, 3, Use to check BS daily dx E11.9, [facility] #[id number], Supply, 163, cm, 12/30/21 11:09:00 EDT, Height/Length Dosing, 154, kg, 12/30/21 11:09:00 EDT, Weight Dosing Start: 04-13-2022 Test Strips, See Instructions, 100 EA, 3, Use to test BS daily dx E11.9, [facility] #[id number], Supply, 163, cm, 12/30/21 11:09:00 EDT, Height/Length Dosing, 154, kg, 12/30/21 11:09:00 EDT, Weight Dosing Start: 04-13-2022 Lancets, See Instructions, 100 EA, 3, Use to check BS daily dx E11.9, [facility] #[id number], Supply, 163, cm, 12/30/21 11:09:00 EDT, Height/Length Dosing, 154, kg, 12/30/21 11:09:00 EDT, Weight Dosing Start: 04-13-2022 Test Strips, See Instructions, 100 EA, 3, Use to test BS daily dx E11.9, [facility] #[id number], Supply, 163, cm, 12/30/21 11:09:00 EDT, Height/Length Dosing, 154, kg, 12/30/21 11:09:00 EDT, Weight Dosing Start: 04-13-2022 Lancets, See Instructions, 100 EA, 3, Use to check BS daily dx E11.9, [facility] #[id number], Supply, 163, cm, 12/30/21 11:09:00 EDT, Height/Length Dosing, 154, kg, 12/30/21 11:09:00 EDT, Weight Dosing Start: 04-13-2022 Test Strips, See Instructions, 100 EA, 3, Use to test BS daily dx E11.9, [facility] #[id number], Supply, 163, cm, 12/30/21 11:09:00 EDT, Height/Length Dosing, 154, kg, 12/30/21 11:09:00 EDT, Weight Dosing Start: 04-13-2022 Lancets, See Instructions, 100 EA, 3, Use to check BS daily dx E11.9, [facility] #[id number], Supply, 163, cm, 12/30/21 11:09:00 EDT, Height/Length Dosing, 154, kg, 12/30/21 11:09:00 EDT, Weight Dosing Start: 04-13-2022 Test Strips, See Instructions, 100 EA, 3, Use to test BS daily dx E11.9, [facility] #[id number], Supply, 163, cm, 12/30/21 11:09:00 EDT, Height/Length Dosing, 154, kg, 12/30/21 11:09:00 EDT, Weight Dosing Start: 04-13-2022 Lancets, See Instructions, 100 EA, 3, Use to check BS daily dx E11.9, [facility] #[id number], Supply, 163, cm, 12/30/21 11:09:00 EDT, Height/Length Dosing, 154, kg, 12/30/21 11:09:00 EDT, Weight Dosing Start: 04-13-2022 Test Strips, See Instructions, 100 EA, 3, Use to test BS daily dx E11.9, [facility] #[id number], Supply, 163, cm, 12/30/21 11:09:00 EDT, Height/Length Dosing, 154, kg, 12/30/21 11:09:00 EDT, Weight Dosing Start: 04-13-2022 Lancets, See Instructions, 100 EA, 3, Use to check BS daily dx E11.9, [facility] #[id number], Supply, 163, cm, 12/30/21 11:09:00 EDT, Height/Length Dosing, 154, kg, 12/30/21 11:09:00 EDT, Weight Dosing Start: 04-13-2022 Test Strips, See Instructions, 100 EA, 3, Use to test BS daily dx E11.9, [facility] #[id number], Supply, 163, cm, 12/30/21 11:09:00 EDT, Height/Length Dosing, 154, kg, 12/30/21 11:09:00 EDT, Weight Dosing Start: 04-13-2022 Lancets, See Instructions, 100 EA, 3, Use to check BS daily dx E11.9, [facility] #[id number], Supply, 163, cm, 12/30/21 11:09:00 EDT, Height/Length Dosing, 154, kg, 12/30/21 11:09:00 EDT, Weight Dosing Start: 04-13-2022 Test Strips, See Instructions, 100 EA, 3, Use to test BS daily dx E11.9, [facility] #[id number], Supply, 163, cm, 12/30/21 11:09:00 EDT, Height/Length Dosing, 154, kg, 12/30/21 11:09:00 EDT, Weight Dosing Start: 04-13-2022 Lancets, See Instructions, 100 EA, 3, Use to check BS daily dx E11.9, [facility] #[id number], Supply, 163, cm, 12/30/21 11:09:00 EDT, Height/Length Dosing, 154, kg, 12/30/21 11:09:00 EDT, Weight Dosing Start: 04-13-2022 Test Strips, See Instructions, 100 EA, 3, Use to test BS daily dx E11.9, [facility] #[id number], Supply, 163, cm, 12/30/21 11:09:00 EDT, Height/Length Dosing, 154, kg, 12/30/21 11:09:00 EDT, Weight Dosing Start: 04-13-2022 Lancets, See Instructions, 100 EA, 3, Use to check BS daily dx E11.9, [facility] #[id number], Supply, 163, cm, 12/30/21 11:09:00 EDT, Height/Length Dosing, 154, kg, 12/30/21 11:09:00 EDT, Weight Dosing Start: 04-13-2022 Test Strips, See Instructions, 100 EA, 3, Use to test BS daily dx E11.9, [facility] #[id number], Supply, 163, cm, 12/30/21 11:09:00 EDT, Height/Length Dosing, 154, kg, 12/30/21 11:09:00 EDT, Weight Dosing Start: 04-13-2022 Lancets, See Instructions, 100 EA, 3, Use to check BS daily dx E11.9, [facility] #[id number], Supply, 163, cm, 12/30/21 11:09:00 EDT, Height/Length Dosing, 154, kg, 12/30/21 11:09:00 EDT, Weight Dosing Start: 04-13-2022 Test Strips, See Instructions, 100 EA, 3, Use to test BS daily dx E11.9, [facility] #[id number], Supply, 163, cm, 12/30/21 11:09:00 EDT, Height/Length Dosing, 154, kg, 12/30/21 11:09:00 EDT, Weight Dosing Start: 04-13-2022 Lancets, See Instructions, 100 EA, 3, Use to check BS daily dx E11.9, [facility] #[id number], Supply, 163, cm, 12/30/21 11:09:00 EDT, Height/Length Dosing, 154, kg, 12/30/21 11:09:00 EDT, Weight Dosing Start: 04-13-2022 Test Strips, See Instructions, 100 EA, 3, Use to test BS daily dx E11.9, [facility] #[id number], Supply, 163, cm, 12/30/21 11:09:00 EDT, Height/Length Dosing, 154, kg, 12/30/21 11:09:00 EDT, Weight Dosing Start: 04-13-2022 Lancets, See Instructions, 100 EA, 3, Use to check BS daily dx E11.9, [facility] #[id number], Supply, 163, cm, 12/30/21 11:09:00 EDT, Height/Length Dosing, 154, kg, 12/30/21 11:09:00 EDT, Weight Dosing Start: 04-13-2022 Test Strips, See Instructions, 100 EA, 3, Use to test BS daily, [facility] #[id number], Supply, 167.5, cm, 10/18/22 13:30:00 EDT, Height/Length Dosing, 147, kg, 10/18/22 13:30:00 EDT, Weight Dosing Start: 10-19-2022 Lancets, See Instructions, 100 EA, 3, Use to check BS daily dx E11.9, [facility] #[id number], Supply, 163, cm, 12/30/21 11:09:00 EDT, Height/Length Dosing, 154, kg, 12/30/21 11:09:00 EDT, Weight Dosing Start: 04-13-2022 Test Strips, See Instructions, 100 EA, 3, Use to test BS daily, [facility] #[id number], Supply, 167.5, cm, 10/18/22 13:30:00 EDT, Height/Length Dosing, 147, kg, 10/18/22 13:30:00 EDT, Weight Dosing Start: 10-19-2022 Lancets, See Instructions, 100 EA, 3, Use to check BS daily dx E11.9, [facility] #[id number], Supply, 163, cm, 12/30/21 11:09:00 EDT, Height/Length Dosing, 154, kg, 12/30/21 11:09:00 EDT, Weight Dosing Start: 04-13-2022 Test Strips, See Instructions, 100 EA, 3, Use to test BS daily, [facility] #[id number], Supply, 167.5, cm, 10/18/22 13:30:00 EDT, Height/Length Dosing, 147, kg, 10/18/22 13:30:00 EDT, Weight Dosing Start: 10-19-2022 Lancets, See Instructions, 100 EA, 3, Use to check BS daily dx E11.9, [facility] #[id number], Supply, 163, cm, 12/30/21 11:09:00 EDT, Height/Length Dosing, 154, kg, 12/30/21 11:09:00 EDT, Weight Dosing Start: 04-13-2022 Test Strips, See Instructions, 100 EA, 3, Use to test BS daily, [facility] #[id number], Supply, 167.5, cm, 10/18/22 13:30:00 EDT, Height/Length Dosing, 147, kg, 10/18/22 13:30:00 EDT, Weight Dosing Start: 10-19-2022 Lancets, See Instructions, 100 EA, 3, Use to check BS daily dx E11.9, [facility] #[id number], Supply, 163, cm, 12/30/21 11:09:00 EDT, Height/Length Dosing, 154, kg, 12/30/21 11:09:00 EDT, Weight Dosing Start: 04-13-2022 Test Strips, See Instructions, 100 EA, 3, Use to test BS daily, [facility] #[id number], Supply, 167.5, cm, 10/18/22 13:30:00 EDT, Height/Length Dosing, 147, kg, 10/18/22 13:30:00 EDT, Weight Dosing Start: 10-19-2022 Lancets, See Instructions, 100 EA, 3, Use to check BS daily dx E11.9, [facility] #[id number], Supply, 163, cm, 12/30/21 11:09:00 EDT, Height/Length Dosing, 154, kg, 12/30/21 11:09:00 EDT, Weight Dosing Start: 04-13-2022 Test Strips, See Instructions, 100 EA, 3, Use to test BS daily, [facility] #[id number], Supply, 167.5, cm, 10/18/22 13:30:00 EDT, Height/Length Dosing, 147, kg, 10/18/22 13:30:00 EDT, Weight Dosing Start: 10-19-2022 Lancets, See Instructions, 100 EA, 3, Use to check BS daily dx E11.9, [facility] #[id number], Supply, 163, cm, 12/30/21 11:09:00 EDT, Height/Length Dosing, 154, kg, 12/30/21 11:09:00 EDT, Weight Dosing Start: 04-13-2022 Test Strips, See Instructions, 100 EA, 3, Use to test BS daily, [facility] #[id number], Supply, 167.5, cm, 10/18/22 13:30:00 EDT, Height/Length Dosing, 147, kg, 10/18/22 13:30:00 EDT, Weight Dosing Start: 10-19-2022 Lancets, See Instructions, 100 EA, 3, Use to check BS daily dx E11.9, [facility] #[id number], Supply, 163, cm, 12/30/21 11:09:00 EDT, Height/Length Dosing, 154, kg, 12/30/21 11:09:00 EDT, Weight Dosing Start: 04-13-2022 Test Strips, See Instructions, 100 EA, 3, Use to test BS daily, [facility] #[id number], Supply, 167.5, cm, 10/18/22 13:30:00 EDT, Height/Length Dosing, 147, kg, 10/18/22 13:30:00 EDT, Weight Dosing Start: 10-19-2022 Lancets, See Instructions, 100 EA, 3, Use to check BS daily dx E11.9, [facility] #[id number], Supply, 163, cm, 12/30/21 11:09:00 EDT, Height/Length Dosing, 154, kg, 12/30/21 11:09:00 EDT, Weight Dosing Start: 04-13-2022 Test Strips, See Instructions, 100 EA, 3, Use to test BS daily, [facility] #[id number], Supply, 167.5, cm, 10/18/22 13:30:00 EDT, Height/Length Dosing, 147, kg, 10/18/22 13:30:00 EDT, Weight Dosing Start: 10-19-2022 Lancets, See Instructions, 100 EA, 3, Use to check BS daily dx E11.9, [facility] #[id number], Supply, 163, cm, 12/30/21 11:09:00 EDT, Height/Length Dosing, 154, kg, 12/30/21 11:09:00 EDT, Weight Dosing Start: 04-13-2022 Test Strips, See Instructions, 100 EA, 3, Use to test BS daily, [facility] #[id number], Supply, 167.5, cm, 10/18/22 13:30:00 EDT, Height/Length Dosing, 147, kg, 10/18/22 13:30:00 EDT, Weight Dosing Start: 10-19-2022 Lancets, See Instructions, 100 EA, 3, Use to check BS daily dx E11.9, [facility] #[id number], Supply, 163, cm, 12/30/21 11:09:00 EDT, Height/Length Dosing, 154, kg, 12/30/21 11:09:00 EDT, Weight Dosing Start: 04-13-2022 Test Strips, See Instructions, 100 EA, 3, Use to test BS daily, [facility] #[id number], Supply, 167.5, cm, 10/18/22 13:30:00 EDT, Height/Length Dosing, 147, kg, 10/18/22 13:30:00 EDT, Weight Dosing Start: 10-19-2022 Lancets, See Instructions, 100 EA, 3, Use to check BS daily dx E11.9, [facility] #[id number], Supply, 163, cm, 12/30/21 11:09:00 EDT, Height/Length Dosing, 154, kg, 12/30/21 11:09:00 EDT, Weight Dosing Start: 04-13-2022 Test Strips, See Instructions, 100 EA, 3, Use to test BS daily, [facility] #[id number], Supply, 167.5, cm, 10/18/22 13:30:00 EDT, Height/Length Dosing, 147, kg, 10/18/22 13:30:00 EDT, Weight Dosing Start: 10-19-2022 Lancets, See Instructions, 100 EA, 3, Use to check BS daily dx E11.9, [facility] #[id number], Supply, 163, cm, 12/30/21 11:09:00 EDT, Height/Length Dosing, 154, kg, 12/30/21 11:09:00 EDT, Weight Dosing Start: 04-13-2022 Test Strips, See Instructions, 100 EA, 3, Use to test BS daily, [facility] #[id number], Supply, 167.5, cm, 10/18/22 13:30:00 EDT, Height/Length Dosing, 147, kg, 10/18/22 13:30:00 EDT, Weight Dosing Start: 10-19-2022 Lancets, See Instructions, 100 EA, 3, Use to check BS daily dx E11.9, [facility] #[id number], Supply, 163, cm, 12/30/21 11:09:00 EDT, Height/Length Dosing, 154, kg, 12/30/21 11:09:00 EDT, Weight Dosing Start: 04-13-2022 Test Strips, See Instructions, 100 EA, 3, Use to test BS daily, [facility] #[id number], Supply, 167.5, cm, 10/18/22 13:30:00 EDT, Height/Length Dosing, 147, kg, 10/18/22 13:30:00 EDT, Weight Dosing Start: 10-19-2022 Unknown Unknown 12/23/23 Non Biological Unknown FDA Start: 12-23-2023 Lancets, See Instructions, 100 EA, 3, Use to check BS daily dx E11.9, [facility] #[id number], Supply, 163, cm, 12/30/21 11:09:00 EDT, Height/Length Dosing, 154, kg, 12/30/21 11:09:00 EDT, Weight Dosing Start: 04-13-2022 Test Strips, See Instructions, 100 EA, 3, Use to test BS daily, [facility] #[id number], Supply, 167.5, cm, 10/18/22 13:30:00 EDT, Height/Length Dosing, 147, kg, 10/18/22 13:30:00 EDT, Weight Dosing Start: 10-19-2022 Unknown Unknown 12/23/23 Non Biological Unknown FDA Start: 12-23-2023 Lancets, See Instructions, 100 EA, 3, Use to check BS daily dx E11.9, [facility] #[id number], Supply, 163, cm, 12/30/21 11:09:00 EDT, Height/Length Dosing, 154, kg, 12/30/21 11:09:00 EDT, Weight Dosing Start: 04-13-2022 Test Strips, See Instructions, 100 EA, 3, Use to test BS daily, [facility] #[id number], Supply, 167.5, cm, 10/18/22 13:30:00 EDT, Height/Length Dosing, 147, kg, 10/18/22 13:30:00 EDT, Weight Dosing Start: 10-19-2022 Unknown Unknown 12/23/23 Non Biological Unknown FDA Start: 12-23-2023 Lancets, See Instructions, 100 EA, 3, Use to check BS daily dx E11.9, [facility] #[id number], Supply, 163, cm, 12/30/21 11:09:00 EDT, Height/Length Dosing, 154, kg, 12/30/21 11:09:00 EDT, Weight Dosing Start: 04-13-2022 Test Strips, See Instructions, 100 EA, 3, Use to test BS daily, [facility] #[id number], Supply, 167.5, cm, 10/18/22 13:30:00 EDT, Height/Length Dosing, 147, kg, 10/18/22 13:30:00 EDT, Weight Dosing Start: 10-19-2022 Unknown Unknown 12/23/23 Non Biological Unknown FDA Start: 12-23-2023 Lancets, See Instructions, 100 EA, 3, Use to check BS daily dx E11.9, [facility] #[id number], Supply, 163, cm, 12/30/21 11:09:00 EDT, Height/Length Dosing, 154, kg, 12/30/21 11:09:00 EDT, Weight Dosing Start: 04-13-2022 Test Strips, See Instructions, 100 EA, 3, Use to test BS daily, [facility] #[id number], Supply, 167.5, cm, 10/18/22 13:30:00 EDT, Height/Length Dosing, 147, kg, 10/18/22 13:30:00 EDT, Weight Dosing Start: 10-19-2022 Unknown Unknown 12/23/23 Non Biological Unknown FDA Start: 12-23-2023 Lancets, See Instructions, 100 EA, 3, Use to check BS daily dx E11.9, [facility] #[id number], Supply, 163, cm, 12/30/21 11:09:00 EDT, Height/Length Dosing, 154, kg, 12/30/21 11:09:00 EDT, Weight Dosing Start: 04-13-2022 Test Strips, See Instructions, 100 EA, 3, Use to test BS daily, [facility] #[id number], Supply, 167.5, cm, 10/18/22 13:30:00 EDT, Height/Length Dosing, 147, kg, 10/18/22 13:30:00 EDT, Weight Dosing Start: 10-19-2022 Unknown Unknown 12/23/23 Non Biological Unknown FDA Start: 12-23-2023 Lancets, See Instructions, 100 EA, 3, Use to check BS daily dx E11.9, [facility] #[id number], Supply, 163, cm, 12/30/21 11:09:00 EDT, Height/Length Dosing, 154, kg, 12/30/21 11:09:00 EDT, Weight Dosing Start: 04-13-2022 Test Strips, See Instructions, 100 EA, 3, Use to test BS daily, [facility] #[id number], Supply, 167.5, cm, 10/18/22 13:30:00 EDT, Height/Length Dosing, 147, kg, 10/18/22 13:30:00 EDT, Weight Dosing Start: 10-19-2022 Unknown Unknown 12/23/23 Non Biological Unknown FDA Start: 12-23-2023 Lancets, See Instructions, 100 EA, 3, Use to check BS daily dx E11.9, [facility] #[id number], Supply, 163, cm, 12/30/21 11:09:00 EDT, Height/Length Dosing, 154, kg, 12/30/21 11:09:00 EDT, Weight Dosing Start: 04-13-2022 Test Strips, See Instructions, 100 EA, 3, Use to test BS daily, [facility] #[id number], Supply, 167.5, cm, 10/18/22 13:30:00 EDT, Height/Length Dosing, 147, kg, 10/18/22 13:30:00 EDT, Weight Dosing Start: 10-19-2022 Unknown Unknown 12/23/23 Non Biological Unknown FDA Start: 12-23-2023 Lancets, See Instructions, 100 EA, 3, Use to check BS daily dx E11.9, [facility] #[id number], Supply, 163, cm, 12/30/21 11:09:00 EDT, Height/Length Dosing, 154, kg, 12/30/21 11:09:00 EDT, Weight Dosing Start: 04-13-2022 Test Strips, See Instructions, 100 EA, 3, Use to test BS daily, [facility] #[id number], Supply, 167.5, cm, 10/18/22 13:30:00 EDT, Height/Length Dosing, 147, kg, 10/18/22 13:30:00 EDT, Weight Dosing Start: 10-19-2022 Unknown Unknown 12/23/23 Non Biological Unknown FDA Start: 12-23-2023 Lancets, See Instructions, 100 EA, 3, Use to check BS daily dx E11.9, [facility] #[id number], Supply, 163, cm, 12/30/21 11:09:00 EDT, Height/Length Dosing, 154, kg, 12/30/21 11:09:00 EDT, Weight Dosing Start: 04-13-2022 Test Strips, See Instructions, 100 EA, 3, Use to test BS daily, [facility] #[id number], Supply, 167.5, cm, 10/18/22 13:30:00 EDT, Height/Length Dosing, 147, kg, 10/18/22 13:30:00 EDT, Weight Dosing Start: 10-19-2022 Unknown Unknown 12/23/23 Non Biological Unknown FDA Start: 12-23-2023 Lancets, See Instructions, 100 EA, 3, Use to check BS daily dx E11.9, [facility] #[id number], Supply, 163, cm, 12/30/21 11:09:00 EDT, Height/Length Dosing, 154, kg, 12/30/21 11:09:00 EDT, Weight Dosing Start: 04-13-2022 Test Strips, See Instructions, 100 EA, 3, Use to test BS daily, [facility] #[id number], Supply, 167.5, cm, 10/18/22 13:30:00 EDT, Height/Length Dosing, 147, kg, 10/18/22 13:30:00 EDT, Weight Dosing Start: 10-19-2022 Unknown Unknown 12/23/23 Non Biological Unknown FDA Start: 12-23-2023 Lancets, See Instructions, 100 EA, 3, Use to check BS daily dx E11.9, [facility] #[id number], Supply, 163, cm, 12/30/21 11:09:00 EDT, Height/Length Dosing, 154, kg, 12/30/21 11:09:00 EDT, Weight Dosing Start: 04-13-2022 Test Strips, See Instructions, 100 EA, 3, Use to test BS daily, [facility] #[id number], Supply, 167.5, cm, 10/18/22 13:30:00 EDT, Height/Length Dosing, 147, kg, 10/18/22 13:30:00 EDT, Weight Dosing Start: 04-18-2023 Unknown Unknown 12/23/23 Non Biological Unknown FDA Start: 12-23-2023 Lancets, See Instructions, 100 EA, 3, Use to check BS daily dx E11.9, [facility] #[id number], Supply, 163, cm, 12/30/21 11:09:00 EDT, Height/Length Dosing, 154, kg, 12/30/21 11:09:00 EDT, Weight Dosing Start: 04-13-2022 Test Strips, See Instructions, 100 EA, 3, Use to test BS daily, [facility] #[id number], Supply, 167.5, cm, 10/18/22 13:30:00 EDT, Height/Length Dosing, 147, kg, 10/18/22 13:30:00 EDT, Weight Dosing Start: 10-19-2022 Unknown Unknown 12/23/23 Non Biological Unknown FDA Start: 12-23-2023 Lancets, See Instructions, 100 EA, 3, Use to check BS daily dx E11.9, [facility] #[id number], Supply, 163, cm, 12/30/21 11:09:00 EDT, Height/Length Dosing, 154, kg, 12/30/21 11:09:00 EDT, Weight Dosing Start: 04-13-2022 Test Strips, See Instructions, 100 EA, 3, Use to test BS daily, [facility] #[id number], Supply, 167.5, cm, 10/18/22 13:30:00 EDT, Height/Length Dosing, 147, kg, 10/18/22 13:30:00 EDT, Weight Dosing Start: 10-19-2022 Unknown Unknown 12/23/23 Non Biological Unknown FDA Start: 12-23-2023 Lancets, See Instructions, 100 EA, 3, Use to check BS daily dx E11.9, [facility] #[id number], Supply, 163, cm, 12/30/21 11:09:00 EDT, Height/Length Dosing, 154, kg, 12/30/21 11:09:00 EDT, Weight Dosing Start: 04-13-2022 Test Strips, See Instructions, 100 EA, 3, Use to test BS daily, [facility] #[id number], Supply, 167.5, cm, 10/18/22 13:30:00 EDT, Height/Length Dosing, 147, kg, 10/18/22 13:30:00 EDT, Weight Dosing Start: 10-19-2022 Unknown Unknown 12/23/23 Non Biological Unknown FDA Start: 12-23-2023 Lancets, See Instructions, 100 EA, 3, Use to check BS daily dx E11.9, [facility] #[id number], Supply, 163, cm, 12/30/21 11:09:00 EDT, Height/Length [...] check BS daily dx E11.9, [facility] #[id number], Supply, 163, cm, 12/30/21 11:09:00 EDT, Height/Length Dosing, 154, kg, 12/30/21 11:09:00 EDT, Weight Dosing Start: 04-13-2022 Test Strips, See Instructions, 100 EA, 3, Use to test BS daily, [facility] #[id number], Supply, 167.5, cm, 10/18/22 13:30:00 EDT, Height/Length Dosing, 147, kg, 10/18/22 13:30:00 EDT, Weight Dosing Start: 10-19-2022 Unknown Unknown 12/23/23 Non Biological Unknown FDA Start: 12-23-2023 Lancets, See Instructions, 100 EA, 3, Use to check BS daily dx E11.9, [facility] #[id number], Supply, 163, cm, 12/30/21 11:09:00 EDT, Height/Length Dosing, 154, kg, 12/30/21 11:09:00 EDT, Weight Dosing Start: 04-13-2022 Test Strips, See Instructions, 100 EA, 3, Use to test BS daily, [facility] #[id number], Supply, 167.5, cm, 10/18/22 13:30:00 EDT, Height/Length Dosing, 147, kg, 10/18/22 13:30:00 EDT, Weight Dosing Start: 10-19-2022 Unknown Unknown 12/23/23 Non Biological Unknown FDA Start: 12-23-2023 Lancets, See Instructions, 100 EA, 3, Use to check BS daily dx E11.9, [facility] #[id number], Supply, 163, cm, 12/30/21 11:09:00 EDT, Height/Length Dosing, 154, kg, 12/30/21 11:09:00 EDT, Weight Dosing Start: 04-13-2022 Test Strips, See Instructions, 100 EA, 3, Use to test BS daily, [facility] #[id number], Supply, 167.5, cm, 10/18/22 13:30:00 EDT, Height/Length Dosing, 147, kg, 10/18/22 13:30:00 EDT, Weight Dosing Start: 10-19-2022 Unknown Unknown 12/23/23 Non Biological Unknown FDA Start: 12-23-2023 Lancets, See Instructions, 100 EA, 3, Use to check BS daily dx E11.9, [facility] #[id number], Supply, 163, cm, 12/30/21 11:09:00 EDT, Height/Length Dosing, 154, kg, 12/30/21 11:09:00 EDT, Weight Dosing Start: 04-13-2022 Test Strips, See Instructions, 100 EA, 3, Use to test BS daily, [facility] #[id number], Supply, 167.5, cm, 10/18/22 13:30:00 EDT, Height/Length Dosing, 147, kg, 10/18/22 13:30:00 EDT, Weight Dosing Start: 10-19-2022 Unknown Unknown 12/23/23 Non Biological Unknown FDA Start: 12-23-2023 Lancets, See Instructions, 100 EA, 3, Use to check BS daily dx E11.9, [facility] #[id number], Supply, 163, cm, 12/30/21 11:09:00 EDT, Height/Length Dosing, 154, kg, 12/30/21 11:09:00 EDT, Weight Dosing Start: 04-13-2022 Test Strips, See Instructions, 100 EA, 3, Use to test BS daily, [facility] #[id number], Supply, 167.5, cm, 10/18/22 13:30:00 EDT, Height/Length Dosing, 147, kg, 10/18/22 13:30:00 EDT, Weight Dosing Start: 10-19-2022 Unknown Unknown 12/23/23 Non Biological Unknown FDA Start: 12-23-2023 Lancets, See Instructions, 100 EA, 3, Use to check BS daily dx E11.9, [facility] #[id number], Supply, 163, cm, 12/30/21 11:09:00 EDT, Height/Length Dosing, 154, kg, 12/30/21 11:09:00 EDT, Weight Dosing Start: 04-13-2022 Test Strips, See Instructions, 100 EA, 3, Use to test BS daily, [facility] #[id number], Supply, 167.5, cm, 10/18/22 13:30:00 EDT, Height/Length Dosing, 147, kg, 10/18/22 13:30:00 EDT, Weight Dosing Start: 10-19-2022 Unknown Unknown 12/23/23 Non Biological Unknown FDA Start: 12-23-2023 Lancets, See Instructions, 100 EA, 3, Use to check BS daily dx E11.9, [facility] #[id number], Supply, 163, cm, 12/30/21 11:09:00 EDT, Height/Length Dosing, 154, kg, 12/30/21 11:09:00 EDT, Weight Dosing Start: 04-13-2022 Test Strips, See Instructions, 100 EA, 3, Use to test BS daily, [facility] #[id number], Supply, 167.5, cm, 10/18/22 13:30:00 EDT, Height/Length Dosing, 147, kg, 10/18/22 13:30:00 EDT, Weight Dosing Start: 10-19-2022 Unknown Unknown 12/23/23 Non Biological Unknown FDA Start: 12-23-2023 Lancets, See Instructions, 100 EA, 3, Use to check BS daily dx E11.9, [facility] #[id number], Supply, 163, cm, 12/30/21 11:09:00 EDT, Height/Length Dosing, 154, kg, 12/30/21 11:09:00 EDT, Weight Dosing Start: 04-13-2022 Test Strips, See Instructions, 100 EA, 3, Use to test BS daily, [facility] #[id number], Supply, 167.5, cm, 10/18/22 13:30:00 EDT, Height/Length Dosing, 147, kg, 10/18/22 13:30:00 EDT, Weight Dosing Start: 10-19-2022 Goals Date Patient Goal Desired Activity /State Functional Status Date Assessment Result Facility 07-18-2024 Functional Status N/A [facility] 07-11-2024 Functional Status N/A [facility] 06-05-2024 Functional Status N/A [facility] 02-22-2024 Functional Status N/A [facility] 12-23-2023 Functional Status N/A [facility] 12-06-2023 Functional Status No [facility] 11-25-2023 Functional Status N/A [facility] 11-02-2023 Functional Status N/A [facility] 10-26-2023 Functional Status N/A [facility] 10-25-2023 Functional Status No [facility] 10-11-2023 Functional Status N/A [facility] 08-10-2023 Functional Status N/A [facility] 05-09-2023 Functional Status N/A [facility] 04-26-2023 Functional Status N/A [facility] 03-18-2023 Functional Status N/A [facility] 11-26-2022 Functional Status N/A [facility] 10-13-2022 Functional Status No [facility] 09-29-2022 Functional Status No [facility] 09-24-2022 Functional Status N/A [facility] 09-22-2022 Functional Status No [facility] 09-14-2022 Functional status Patient at Baseline [facility] Work Phone: 09-06-2022 Functional Status N/A [facility] 08-20-2022 Functional Status N/A [facility] 12-30-2021 Functional Status N/A [facility] Mental Status Date Assessment Result Facility 09-14-2022 Cognitive function Cognitive Sta tus Patient at Baseline [facility] Work Phone: Clinical Notes [...] condition. Follow these instructions at home: Take ciss-ufr-krvrwid and prescription medicines only as told by [...] and water are not available, use hand catshovel driver. Avoid contact with people who have cold [...] it is easier to cough up. Take gyvr-zrw-jrhfozg and prescription medicines only as told by [...] provider. Document Revised: 09/30/2022 Document Reviewed: 10/21/2021 [employer] Patient Education 2023 [employer]. 04/09/2025 06:41:02 Sleep Apnea Sleep Apnea Sleep [...] your health care provider. General instructions Take gptd-qcm-lpkudyi and prescription medicines only as told by [...] provider. Document Revised: 01/27/2022 Document Reviewed: 05/29/2021 [employer] Patient Education 2023 [employer]. 04/09/2025 06:41:00 Type 2 Diabetes Mellitus, Self-Care, [...] you how to adjust your dosage. Take vayn-woo-wddyjhc and prescription medicines only as told by [...] your health care provider once every year. [place] your teeth and gums two times a [...] meet with a certified diabetes care and career technical education instructor? Where can I find a support group for people with diabetes? Where to find more information For help and guidance and for more information about diabetes, please visit: Spanish Diabetes Association (ADA): www.diabetes.org Spanish Association of Diabetes Care and Education Specialists [...] provider. Document Revised: 11/18/2021 Document Reviewed: 11/18/2021 [employer] Patient Education 2023 [employer]. 04/09/2025 06:40:57 Asthma, Adult Asthma, Adult Asthma [...] breathing (shortness of breath). Excessive nighttime or roller hand coughing. Chest tightness. Tiredness (fatigue) with minimal [...] condition. Follow these instructions at home: Take idhw-ayj-yawhnwb and prescription medicines only as told by [...] provider. Document Revised: 04/07/2022 Document Reviewed: 03/29/2022 [employer] Patient Education 2023 [employer]. Follow Up Care 04/08/2025 08:18:43 With:Yocasta SMITH, WARDROBE CUSTODIAN-CHART COLLECTORMyron Address: [address] [place] [phone] When:Within 3 Month(s) Comments[facility] Patient Education ENT Sleep [...] health care provider. General instructions ??? Take ehln-xyi-hwwcump and prescription medicines only as told by [...] ? Trouble speak (more content not included)... [facility] 03-04-2025 Hospital Discharg e instructions Patient Education [...] breathing (shortness of breath). Excessive nighttime or roller hand coughing. Chest tightness. Tiredness (fatigue) with minimal [...] condition. Follow these instructions at home: Take qosz-wus-ifyryxc and prescription medicines only as told by [...] provider. Document Revised: 04/07/2022 Document Reviewed: 03/29/2022 [employer] Patient Education 2023 [employer]. 03/04/2025 12:44:27 Exercising to Lose Weight Exercising [...] your health care provider or diet and front end specialist (dietitian). This may include: ?Eating fewer [...] provider. Document Revised: 08/16/2021 Document Reviewed: 08/16/2021 [employer] Patient Education 2023 [employer] 03/04/2025 12:44:24 Type 2 Diabetes Mellitus, [...] you how to adjust your dosage. Take xdjh-kvt-boasgbd and prescription medicines only as told by [...] your health care provider once every year. [place] your teeth and gums two times a [...] meet with a certified diabetes care and career technical education instructor? Where can I find a support group for people with diabetes? Where to find more information For help and guidance and for more information about diabetes, please visit: Spanish Diabetes Association (ADA): www.diabetes.org Spanish Association of Diabetes Care and Education Specialists [...] provider. Document Revised: 11/18/2021 Document Reviewed: 11/18/2021 [employer] Patient Education 2023 [employer]. [facility] [place] 03-04-2025 Note Patient Education Endocrinology Type 2 [...] how to adjust your dosage. ??? Take mmpx-fjv-pnfiuda and prescription medicines only as told by [...] the week. ? (more content not included)... [facility] 02-04-2025 Hospital Discharg e instructions Patient Education [...] your health care provider or diet and front end specialist (dietitian). This may include: ?Eating fewer [...] provider. Document Revised: 08/16/2021 Document Reviewed: 08/16/2021 [employer] Patient Education 2023 [employer]. 02/04/2025 15:12:32 Type 2 Diabetes Mellitus, Self-Care, [...] you how to adjust your dosage. Take xstj-nri-uyeoezh and prescription medicines only as told by [...] your health care provider once every year. [place] your teeth and gums two times a [...] meet with a certified diabetes care and career technical education instructor? Where can I find a support group for people with diabetes? Where to find more information For help and guidance and for more information about diabetes, please visit: Spanish Diabetes Association (ADA): www.diabetes.org Spanish Association of Diabetes Care and Education Specialists [...] provider. Document Revised: 11/18/2021 Document Reviewed: 11/18/2021 [employer] Patient Education 2023 [employer]. 02/04/2025 15:12:29 Asthma, Adult Asthma, Adult Asthma [...] breathing (shortness of breath). Excessive nighttime or roller hand coughing. Chest tightness. Tiredness (fatigue) with minimal [...] condition. Follow these instructions at home: Take wbrn-ocy-xdezgpo and prescription medicines only as told by [...] provider. Document Revised: 04/07/2022 Document Reviewed: 03/29/2022 [employer] Patient Education 2023 [employer]. Follow Up Care 01/02/2025 14:24:55 With:Yocasta SMITH, WARDROBE CUSTODIAN-CHART COLLECTOR, Myron Hamilton Address: [address] [place] [phone] When:Within 1 Month(s) Comments:weight loss, initial 40 min [facility] [place] 02-04-2025 Note Patient Education Endocrinology Type 2 [...] how to adjust your dosage. ??? Take evuz-nov-xfzzkcu and prescription medicines only as told by [...] the week. ? (more content not included)... [facility] 01-24-2025 Note ED Patient Education Note Caregiving [...] and water are not available, use hand catshovel driver. ? Change your dressing as told by [...] scar, or cover it up. ??? Take uhxq-fzp-iicudst and prescription medicines only as told by [...] provider. Document Revised: 10/26/2021 Document Reviewed: 10/26/2021 [employer] Patient Education ? 2023 [employer] Fall Prevention in the Home, Adult [...] Keep items that you use often in fgvu-pb-ijask places. Lower t (more content not included)... [facility] 01-03-2025 Note Microbiology PROCEDURE: Blood Culture Charcoal [R1] SOURCE: Blood BODY SITE: Arm L COLLECTED DATE/TIME: 12/27/2024 10:54 EDT RECEIVED DATE/TIME: 12/27/2024 11:21 EDT START DATE/TIME: 12/27/2024 11:21 EDT FREE TEXT SOURCE: Mendez Spain, Whit Simms M.D., Whit Thurman FINAL REPORTS Final Report [] Verified Date/Time: 01/03/2025 12:00 EDT No growth at 7 days. Performing Locations R1: This [facility] performed at: [facility], [address] [place] [address], [facility] Comment on above: Performed By: #### 1 [id number] #### [facility] [address] [place] [address] 01-03-2025 Note Microbiology PROCEDURE: Blood Culture Charcoal [...] Locations R1: This [facility] performed at: [facility], [address] [place] [address], [address] [place] [address], [facility] Comment on above: Performed By: #### 1 [id number] #### [facility] [address] [place] [address] 01-02-2025 Hospital Discharg e instructions Patient Education [...] you how to adjust your dosage. Take vpmy-aoy-fqeayuj and prescription medicines only as told by [...] your health care provider once every year. [place] your teeth and gums two times a [...] meet with a certified diabetes care and career technical education instructor? Where can I find a support group for people with diabetes? Where to find more information For help and guidance and for more information about diabetes, please visit: [place] Diabetes Association (ADA): www.diabetes.org Spanish Association of Diabetes Care and Education Specialists [...] provider. Document Revised: 11/18/2021 Document Reviewed: 11/18/2021 [employer] Patient Education 2023 [employer]. 01/02/2025 06:50:38 Sleep Apnea Sleep Apnea Sleep [...] your health care provider. General instructions Take fhuh-hga-fwsyqai and prescription medicines only as told by [...] provider. Document Revised: 01/27/2022 Document Reviewed: 05/29/2021 [employer] Patient Education 2023 [employer]. 01/02/2025 06:50:35 Heart Failure, Self-Care Heart Failure, [...] when you have heart failure Medicines Take yxhs-qrk-kvnlwgy and prescription medicines only as told by [...] provider. Document Revised: 09/28/2022 Document Reviewed: 01/10/2021 [employer] Patient Education 2023 [employer] 01/02/2025 06:50:34 Health Risks of Smoking [...] Department of Health and Human Services: www.smokefree.gov Spanish Lung Association: www.freedomfromsmoking.org Spanish Heart Association: www.heart.org Where to find more [...] provider. Document Revised: 06/22/2022 Document Reviewed: 06/22/2022 [employer] Patient Education 2023 [employer]. Follow Up Care 12/19/2024 13:33:44 With:Yocasta SMITH, WARDROBE CUSTODIAN-CHART COLLECTOR, Myron Hamilton Address: [address] [place] [phone] When:Within 1 Month(s) [facility] [place] 01-02-2025 Note Patient Education Cardiovascular Heart Failure, [...] when you have heart failure Medicines Take ukno-bxe-kxxglhi and prescription medicines only as told by [...] ? Avoid alcohol. (more content not included)... [facility] 12-29-2024 Evaluation + Plan note Extrac jeffrey [...] When Contact Information Follow up with your senior ssis developer as Scheduled January 01 Additional Instructions: Myron Rust Within 7 to 10 days [address] [place] [address] [phone] [facility] (1) Additional Instructions: Call for followup appointment Cellulitis, Adult Fluid Restriction Heart Failure Action Plan Form - Daily Weight Record Extracted from: Title:APSO Note Author:Abisai Kaur III, DO Date:12/28/24 Patient is a 64-year-old fem nazanin with past medical history of tobacco abuse, HTN, HFpEF, GERD, history of alcohol abuse, HLD, asthma, BRENDA, morbid obesity (BMI 58.6), dnv-wxjuiro-igcujwrlv type 2 diabetes, marijuana use, COPD not on home oxygen, hypertension, history of volume overload especially with heavy alcohol use admitted to [facility] on 12/27/2024 for treatment of acute [...] made to ensure accuracy. However inadvertent computerized voucher examiner errors may be present. Extracted from: Title:Admission H & P Author:Law jt Kaur III, DO Date:12/27/24 Patient is a 64-year-old fem nazanin with past medical history of tobacco abuse, HTN, HFpEF, GERD, history of alcohol abuse, HLD, asthma, BRENDA, morbid obesity (BMI 58.6), fvh-merrzqo-pijoabmnt type 2 diabetes, marijuana use, COPD not on home oxygen, hypertension, history of volume overload especially with heavy alcohol use admitted to [facility] on 12/27/2024 for treatment of acute [...] Complete Initial Hospital Care/Day Moderate 55 Minutes [id number] Notify Provider Vital Signs Notify Provider Vital [...] made to ensure accuracy. However inadvertent computerized voucher examiner errors may be present. Addendum by Abisai [...] Date:01/01/2025 02:00:00 PM Scheduled Provider:Rick Hernandez PA-C [facility] [place] App[facility] Type:Cardiology Follow Up (FT) Appointment Date:01/02/2025 01:40:00 PM Scheduled Provider:Yocasta MSN, WARDROBE CUSTODIAN-IRVING, Myron Hamilton [facility]:FM Open Appointment Date:01/07/2025 12:30:00 PM Scheduled Provider: [facility] Type:PUL Pulmonary Function Test (FT) Future Scheduled Tests Laboratory* Microalbumin Level Urine 12/19/24 * Urine Microalbumin/Creatinine Ratio 12/19/24 [facility] 06-28-2025 Hospital Discharge instructions Patient Education [...] Follow these instructions at home: Medicines Take enpu-wjm-frkavem and prescription medicines only as told by [...] provider. Document Revised: 02/15/2023 Document Reviewed: 02/15/2023 [employer] Patient Education 2023 [employer] 12/29/2024 11:04:37 Fluid Restriction Fluid Restriction [...] provider. Document Revised: 04/07/2021 Document Reviewed: 04/07/2021 [employer] Patient Education 2023 [employer]. 12/29/2024 11:04:35 Heart Failure Action Plan Heart [...] symptoms. Follow these instructions at home: Take vlpv-kjv-letklhr and prescription medicines only as told by your health care provider. Weigh yourself daily. Your target weight is lb ( kg). ?Call your health care provider if you gain more than lb ( kg) in 24 hours, ormore than lb ( kg) in a week. ?Health care provider name: ?Health care provider phone number: Eat a heart-healthy diet. Work with a diet and front end specialist (dietitian) to create an eatingplan that is best for you. Keep all follow-up visits. This is important. Where to find more information Spanish Heart Association: Summary A heart failure action [...] Care 12/27/2024 10:32:55 With:Follow up with your senior ssis developer as Scheduled January 01 Address:Unknown When: Unknown With:Myron Rust Address: [address] [facility] [place] [address] [phone] [facility] (1) When:7 to 10 days Comments:Call for followup appointment [facility] 06-28-2025 NoteDischarge Summary Admission and Discharge [...] HLD, asthma, BRENDA, morbid obesity (BMI 58.6), lze-hfesgko-intriotnf type 2 diabetes, marijuana use, COPD not on home oxygen, hypertension, history of volume overload especially with heavy alcohol use admitted to [facility] on 12/27/2024 for treatment of right [...] 250 mg= 1 tab(s) (more content not included)...[facility]Result Comment: Electronically Signed By: Abisai Kaur III, DO.hardik\Date and Time Signed: 12/29/24 11:11 EDT 12-28-2024 NoteProgress Note-Physician Assessment/Plan Patient is a 64-year-old female with past medical history of tobacco abuse, HTN, HFpEF, GERD, history of alcohol abuse, HLD, asthma, BRENDA, morbid obesity (BMI 58.6), hkr-ikmbcsd-bvkhvzsrd type 2 diabetes, marijuana use, COPD not on home oxygen, hypertension, history of volume overload especially with heavy alcohol use admitted to [facility] on 12/27/2024 for treatment of acute [...] made to ensure accuracy. However inadvertent computerized voucher examiner errors may be present. Subjective Patient seen [...] Intake mL 125 4,209 (more content not included)...[facility]: Result Comment: Electronically Signed By: Abisai Kaur III, DO\.br\Date and Time Signed: 12/28/24 14:25 [id number] NoteHistory and Physical Basic Information Admit Date/Time:12/27/2024 13:58 Chief Complaint Shortness od breath, edema History of Present Illness Patient is a 64-year-old female with past medical history of tobacco abuse, HTN, HFpEF, GERD, history of alcohol abuse, HLD, asthma, BRENDA, morbid obesity (BMI 58.6), tvb-kfytvph-jntobejch type 2 diabetes, marijuana use, COPD not on home oxygen, hypertension, history of volume overload especially with heavy alcohol use who presents to [facility] ER on 12/27/2024 with chief complaint of [...] Lymph Auto: 12.1 % Low (12/27/24 10:54:00) [place] Auto: 5.3 % (12/27/24 10:54:00) Eos Auto: 1 % (12/27/24 10:54:00) Basophil Auto: 0.8 % (12/27/24 10:54:00) Neutro Absolute: 5.8 E9/L (12/27/24 10:54:00) Lymph Absolute: 0.9 E9/L Low (12/27/24 10:54:00) [place] Absolute: 0.4 E9/L (12/27/24 10:54:00) Eos Absolute: [...] 87 mg/dL (12/27/24 16:55:00) POC Device SN: [id number] (12/27/24 16:55:00) POC User ID: [id number] (12/27/24 16:55:00) POC Username: MIKEY CADET (12/27/24 16:55:00) Assessment/Plan Patient is a 64-year-old female with past medical history of tobacco abuse, HTN, HFpEF, GERD, history of alcohol abuse, HLD, asthma, BRENDA, morbid obesity (BMI 58.6), gao-olylefr-ikicromfz type 2 diabetes, marijuana use, COPD not on home oxygen, hypertension, history of volume overload especially with heavy alcohol use admitted to [facility] on 12/27/2024 for treatment of acute COPD exacerbation and acute heart failure exacerbation. 1. Acute on chronic heart failure (more content not included)...[facility]:Result Comment: Electronically Signed By: Abisai Kaur III, DO\.br\Date and Time Signed: 12/28/24 14:21 [id number] Note Echocardiology Procedure Exam Date/Time Accession # Ordering Echo Transthoracic 12/28/2024 10:03 EDT [id number] Abisai Kaur III, DO CPT code [id number] Reason for Exam (Echo Transthoracic Complete) Congestive Heart Failure Report [facility] [address] [place] [address] Adult Echocardiogram Report Name: CARMEN BLEDSOE Study Date: 12/28/2024 09:14 AM BP: 131/72 mmHg Patient Location: [address] [place] [address] HR: 73 : 1960 Gender: Female Height: 65.5 in Age: 64 yrs Ethnicity: [facility] Weight: 353 lb Reason For Study: Congestive Heart Failure BSA: 2.5 m2 History: HTN,Diabetes,BRENDA, Asthma, Smoker Alcohol abuse- remission Ordering Physician: Natasha^Surendra Performed By: Annabel Oconnell, [facility] Interpretation Summary The left ventricle is [...] Winter Coe MD Transcribed by: RUBEN Technologist: [facility]06-26-2025 Note History and Physical Basic Information Admit Date/Time:12/27/2024 13:58 Chief Complaint Shortness od breath, edema History of Present Illness Patient is a 64-year-old female with past medical history of tobacco abuse, HTN, HFpEF, GERD, history of alcohol abuse, HLD, asthma, BRENDA, morbid obesity (BMI 58.6), sis-bzpturo-qxpqtclon type 2 diabetes, marijuana use, COPD not on home oxygen, hypertension, history of volume overload especially with heavy alcohol use who presents to [facility] on 12/27/2024 with chief complaint of [...] Lymph Auto: 12.1 % Low (12/27/24 10:54:00) [place] Auto: 5.3 % (12/27/24 10:54:00) Eos Auto: 1 % (12/27/24 10:54:00) Basophil Auto: 0.8 % (12/27/24 10:54:00) Neutro Absolute: 5.8 E9/L (12/27/24 10:54:00) Lymph Absolute: 0.9 E9/L Low (12/27/24 10:54:00) [place] Absolute: 0.4 E9/L (12/27/24 10:54:00) Eos Absolute: [...] 87 mg/dL (12/27/24 16:55:00) POC Device SN: [id number] (12/27/24 16:55:00) POC User ID: [id number] (12/27/24 16:55:00) POC Username: MIKEY CADET (12/27/24 16:55:00) Assessment/Plan Patient is a 64-year-old female with past medical history of tobacco abuse, HTN, HFpEF, GERD, history of alcohol abuse, HLD, asthma, BRENDA, morbid obesity (BMI 58.6), buq-fgswonn-zixzdrfao type 2 diabetes, marijuana use, COPD not on home oxygen, hypertension, history of volume overload especially with heavy alcohol use admitted to [facility] on 12/27/2024 for treatment of acute COPD exacerbation and acute heart failure exacerbation. 1. Acute on chronic heart failure (more content not included)...[facility]:Result Comment: Electronically Signed By: Abisai Kaur III, DO.hardik\Date and Time Signed: 12/27/24 17:49 [id number] Hospital Discharge instructions Patient Education 12/19/2024 06:38:27 [...] treat it right away. Always have a 41-wcrzzljcz-rcthlx carbohydrate snack with you to treat low [...] you how to adjust your dosage. Take gglt-lwp-bxnnteg and prescription medicines only as told by [...] your health care provider once every year. [place] your teeth and gums two times a [...] meet with a certified diabetes care and career technical education instructor? Where can I find a support group for people with diabetes? Where to find more information For help and guidance and for more information about diabetes, please visit: [place] Diabetes Association (ADA): www.diabetes.org Spanish Association of Diabetes Care and Education Specialists [...] provider. Document Revised: 11/18/2021 Document Reviewed: 11/18/2021 [employer] Patient Education 2023 [employer]. 12/19/2024 06:38:26 Hypertension, Adult Hypertension, Adult High [...] follow-up visits. This is important. Medicines Take kjcw-veo-xqhvzgg and prescription medicines only as told by [...] provider. Document Revised: 04/27/2022 Document Reviewed: 04/27/2022 [employer] Patient Education 2023 [employer]. 12/19/2024 06:38:25 Heart Failure, Self-Care Heart Failure, [...] when you have heart failure Medicines Take ccnn-msb-qbnggss and prescription medicines only as told by [...] provider. Document Revised: 09/28/2022 Document Reviewed: 01/10/2021 [employer] Patient Education 2023 [employer]. Follow Up Care 09/12/2024 13:36:39 With:Yocasta SMITH, WARDROBE CUSTODIAN-CHART COLLECTOR, Myron Hamilton Address: [address] [place] [phone] When:Within 2 Week(s) Comments:chronic care [facility] [place] 06-18-2025 NotePatient Education Cardiovascular Hypertension, Adult High [...] one 12 oz bottle (more content not included)...[facility]05-27-2025 Hospital Discharge instructions Patient Education 11/27/2024 17:34:22 [...] to any changes in your symptoms. Take dvgq-oxj-lveouhd and prescription medicines only as told by [...] provider. Document Revised: 02/06/2022 Document Reviewed: 02/06/2022 [employer] Patient Education 2023 [employer]. 11/27/2024 17:34:19 Type 2 Diabetes Mellitus, [...] treat it right away. Always have a 56-mrgblbbqc-ugoapc carbohydrate snack with you to treat low [...] you how to adjust your dosage. Take xcjt-dzt-eiazpvk and prescription medicines only as told by [...] your health care provider once every year. [place] your teeth and gums two times a [...] meet with a certified diabetes care and career technical education instructor? Where can I find a support group for people with diabetes? Where to find more information For help and guidance and for more information about diabetes, please visit: Spanish Diabetes Association (ADA): www.diabetes.org Spanish Association of Diabetes Care and Education Specialists [...] provider. Document Revised: 11/18/2021 Document Reviewed: 11/18/2021 [employer] Patient Education 2023 [employer]. 11/26/2024 10:15:58 Peripheral Edema Peripheral Edema Peripheral [...] by your health care provider. Medicines Take yqjl-crl-tczdlqq and prescription medicines only as told by [...] provider. Document Revised: 02/22/2022 Document Reviewed: 02/22/2022 [employer] Patient Education 2023 [employer]. 11/26/2024 10:15:55 Health Risks of Smoking Health [...] Department of Health and Human Services: www.smokefree.gov Spanish Lung Association: www.freedomfromsmoking.org Spanish Heart Association: www.heart.org Where to find more [...] provider. Document Revised: 06/22/2022 Document Reviewed: 06/22/2022 [employer] Patient Education 2023 [employer]. Follow Up Care 11/12/2024 15:55:00 With:Yocasta SMITH, WARDROBE CUSTODIAN-CHART COLLECTOR, Myron Hamilton Address: [address] [place] [phone] When: only if needed [facility] [place] 05-27-2025 NotePatient Education Endocrinology [...] treat it right away. Always have a 59-sanyvhqtb-fmrhmb carbohydrate snack with you to treat low [...] how to adjust your dosage. ??? Take jpbu-fcn-dzsgxxq and prescription medicines only as told by [...] of the week. ? (more content not included)...[facility]05-07-2025 History of Present illness Narrative* Susu Moody - 11/07/2024 10:00 AM EDT BRENDA on CPAP machine * Coco Dean MD - 11/07/2024 10:00 AM EDT BARIATRIC SURGERY NEW PATIENT CONSULTATION HISTORY AND PHYSICAL Date: 11/07/2024 Time: 10:47 AM Name: Carmen Bledsoe PCP: Myron Rust Insurance: Payor: [facility] MEDICAID COMMUNITY PLAN / Plan: [facility] MEDICAID COMMUNITY PLAN / Product Type: *No [...] Health Provider for the 'psych eval - Health Informatics Advisor - Will obtain old medical records to [...] [facility] due to history of [facility] out was provided to [...] Minimally Invasive General [facility] NotePatient Education Health Risks of Smoking [...] of Health and Human Services: www.smokefree.gov ??? Spanish Lung Association: www.freedomfromsmoking.org ??? Spanish Heart Association: www.heart.org Where to find more [...] provider. Document Revised: 06/22/2022 Document Reviewed: 06/22/2022 [employer]ax Patient Education ? 2023 [employer] Cardiovascular Hypertension, Adult High blood pressure [...] in high bloodpressure. What (more content not included)...[facility]02-26-2025 Hospital Discharge instructions Patient Education 08/29/2024 08:03:27 [...] treat it right away. Always have a 95-whuflyjsz-vykhcd carbohydrate snack with you to treat low [...] you how to adjust your dosage. Take pvrc-wiq-rqiyyrh and prescription medicines only as told by [...] your health care provider once every year. [place] your teeth and gums two times a [...] meet with a certified diabetes care and career technical education instructor? Where can I find a support group for people with diabetes? Where to find more information For help and guidance and for more information about diabetes, please visit: [place] Diabetes Association (ADA): www.diabetes.org Spanish Association of Diabetes Care and Education Specialists [...] provider. Document Revised: 11/18/2021 Document Reviewed: 11/18/2021 [employer] Patient Education 2023 [employer]. 08/29/2024 08:03:26 Hypertension, Adult Hypertension, Adult High [...] follow-up visits. This is important. Medicines Take ydwh-fpo-syfuswh and prescription medicines only as told by [...] provider. Document Revised: 04/27/2022 Document Reviewed: 04/27/2022 [employer]ax Patient Education 2023 [employer] 08/29/2024 08:03:25 High Cholesterol High Cholesterol [...] ask your health careprovider. General instructions Take fkcy-dne-qvawynn and prescription medicines only as told by your health care provider. Keep all follow-up visits. This is important. Where to find more information Spanish Heart Association: www.heart.org National Heart, Lung, and Blood [place]: www.nhlbi.nih.gov Contact a health care provider if: [...] provider. Document Revised: 01/21/2023 Document Reviewed: 08/24/2021 [employer] Patient Education 2023 [employer]. Follow Up Care 02/22/2024 14:05:28 With:Yocasta SMITH, WARDROBE CUSTODIAN-Myron VILLATORO Address: [address] [place] [phone] When:Within 6 Month(s) Comments:chronic care [facility] [place] 02-26-2025 NotePatient Education Cardiovascular Hypertension, [...] one 12 oz bottle (more content not included)...[facility]01-15-2025 Hospital Discharge instructions Patient Education 07/18/2024 12:21:31 [...] for Disease Control and Prevention: cdc.gov National [place] on Alcohol Abuse and Alcoholism: niaaa.nih.gov Alcoholics [...] the National Suicide Prevention Lifeline at or 451. This is open 24 hours a day. Text the Crisis Text Line at 804818. Summary Alcohol misuse and dependence can have [...] provider. Document Revised: 08/25/2022 Document Reviewed: 08/25/2022 [employer]ax Patient Education 2023 [employer]. 07/18/2024 12:21:13 Type 2 Diabetes Mellitus, [...] treat it right away. Always have a 33-tupkyfimd-xwwbnp carbohydrate snack with you to treat low [...] you how to adjust your dosage. Take yfce-dqh-gxbzuuo and prescription medicines only as told by [...] your health care provider once every year. [place] your teeth and gums two times a [...] meet with a certified diabetes care and career technical education instructor? Where can I find a support group for people with diabetes? Where to find more information For help and guidance and for more information about diabetes, please visit: Spanish Diabetes Association (ADA): www.diabetes.org Spanish Association of Diabetes Care and Education Specialists [...] provider. Document Revised: 11/18/2021 Document Reviewed: 11/18/2021 [employer] Patient Education 2023 [employer]. Follow Up Care 07/11/2024 12:07:33 With:Yocasta SMITH, WARDROBE CUSTODIAN-CHART COLLECTOR, Myron Hamilton Address: [address] [place] [phone] When: only if needed Comments:keep next month appt [facility] [place] 01-15-2025 NotePatient Education Endocrinology [...] treat it right away. Always have a 14-ieuapwonp-jfzdwr carbohydrate snack with you to treat low [...] how to adjust your dosage. ??? Take exnp-ufk-kvkelbk and prescription medicines only as told by [...] of the week. ? (more content not included)...[facility]01-10-2025 NoteNurse Consultation Note Reason for Visit fasting [...] virus vaccine, inactivated 05/11/2022 Recorded SARS-CoV-2 (COVID-19) mRNAMUL.[id number] 05/11/2022 Recorded SARSCoV2 mRNA(zllpsykjn-wzeq-covayc) vac 12/15/2021 Recorded SARS-CoV-2 (COVID-19) mRNA BNT-162b2 [...] vaccine 12/16/2017 Recorded diphtheria/pertussis, acel/tetanus adult 10/27/2014 [facility] NotePatient Education Infectious Disease Diarrhea, Adult Diarrhea [...] oral rehydration solution (ORS). This is an xsrx-maz-nogbrrf medicine that helps returnyour body to its [...] drinks. ? Avoid alcohol. ??? Eat bland, whwm-um-wnlwpk foods in small amounts as you are able. These foods include bananas, applesauce, rice, lean meats, toast, and crackers. ??? Avoid spicy or fatty foods. Medicines ??? Take ssay-dtq-rnpwgzw and prescription medicines only as told by your health care provider. ??? If you were prescribed antibiotics, take them as told by your health care provider. Do not stopusing the antibiotic even if you start to feel better. General instructions ??? Wash your hands often using soap and water for at least 20 seconds. If soap and water are not available, use hand catshovel driver. Others in the household should wash their [...] provider. Document Revised: 12/07/2022 Document Reviewed: 12/07/2022 [employer] Patient Education ? 2023 [employer]. Mental and Behavioral Health Alcohol Misuse and [...] friends and family. ??? (more content not included)...[facility]01-02-2025 Hospital Discharge instructions Follow Up Care 07/05/2024 08:14:42 With:nurse visit Address: When:2 to 3 days Comments:fasting labs With:Yocasta SMITH, WARDROBE CUSTODIAN-CHART COLLECTOR, Myron Hamilton Address: [address] [place] [phone] When:Within 1 Week(s) Comments:chronic care [facility] [place] 08-21-2024 Hospital Discharge instructions [...] treat it right away. Always have a 05-zosmdrffk-vxamqv carbohydrate snack with you to treat low [...] you how to adjust your dosage. Take ovvp-hvd-rebngiv and prescription medicines only as told by [...] your health care provider once every year. [place] your teeth and gums two times a [...] meet with a certified diabetes care and career technical education instructor? Where can I find a support group for people with diabetes? Where to find more information For help and guidance and for more information about diabetes, please visit: Spanish Diabetes Association (ADA): www.diabetes.org Spanish Association of Diabetes Care and Education Specialists [...] provider. Document Revised: 11/18/2021 Document Reviewed: 11/18/2021 [employer] Patient Education 2022 [employer]. 02/22/2024 08:31:36 Mediterranean Diet Mediterranean Diet A [...] in common dishes like chili or lasagna. [place] with different cooking methods. Try roasting, broiling, [...] available, such as: ?Vegetable sticks with hummus. ?[place]ian yogurt. ?Fruit and nut trail mix. Eat [...] Quinoa. Meats and other proteins Beans. Almonds. [place] seeds. [place] nuts. Peanuts. Cod. [place]. Scallops. Shrimp. Tuna. Tilapia. Clams. Oysters. Eggs. Poultry without skin. Dairy Low-fat milk. Cheese. [place]ian yogurt. Fats and oils Extra-virgin olive oil. Avocado oil. Grapeseed oil. Beverages Water. Red wine. Herbal tea. Sweets and desserts [place]ian yogurt with honey. Baked apples. Poached pears. [place] mix. Seasonings and condiments Basil. Cilantro. Coriander. [...] Fruit canned in syrup. Vegetables Deep-fried potatoes (nigerien fries). Grains Prepackaged pasta or rice dishes. [...] provider. Document Revised: 07/25/2020 Document Reviewed: 05/22/2020 [employer] Patient Education 2022 [employer]. 02/22/2024 08:31:35 Hypertension, Adult Hypertension, Adult High [...] follow-up visits. This is important. Medicines Take ruat-urx-iligspg and prescription medicines only as told by [...] provider. Document Revised: 04/27/2022 Document Reviewed: 04/27/2022 [employer] Patient Education 2022 [employer]. 02/22/2024 08:31:33 Health Risks of Smoking Health [...] Department of Health and Human Services: www.smokefree.gov Spanish Lung Association: www.freedomfromsmoking.org Spanish Heart Association: www.heart.org Where to find more [...] provider. Document Revised: 06/22/2022 Document Reviewed: 06/22/2022 [employer] Patient Education 2022 [employer]. Follow Up Care 11/25/2023 14:56:18 With:Yocasta SMITH, WARDROBE CUSTODIAN-CHART COLLECTOR, Myron Joy Address: [address] [place] [phone] When:Within 6 Month(s) Comments:chronic care [facility] [place] 08-21-2024 NotePatient Education Cardiovascular [...] wine (148 mL), (more content not included)...[facility]06-24-2024 Note [id number] antonio [facility] 12-23-2023 Hospital Discharge instructions Patient Education [...] Care 11/02/2023 11:19:36 With:Marjan SAMPSON, Walker Pritchett, [facility], [facility] Address: [address] [place], [place] [address]di[facility], [address] [phone] When: Unknown Comments:Call Office in 2 weeks for results or follow-up Appt. [facility]06-21-2024 Evaluation + Plan noteExtracted from: Title:ANES Post-operative Note---General Author: Zaid Benz MD Date:12/23/23 Plan Transfer/Discharge: Transfer/Discharge Discharge when meets criteria ( To home ). Extracted from: Title:ANES Pre-operative Note 2022 Author:Zaid Rojas Date:12/23/23 Plan Spanish Society of Anesthesiologists (ASA) physical status classification: Class III. Anesthetic Preoperative Plan: Anesthesia General. Future Appointments Appointment Date:01/27/2024 10:00:00 AM Scheduled Provider:Walker Phillip MD Location:[facility] Follow Up Appointment Date:02/22/2024 01:20:00 PM Scheduled Provider:Yocasta SMITH, WARDROBE CUSTODIAN-Myron VILLATORO Location:[facility] [place] Appointment Type: Open Appointment Date:06/05/2024 01:00:00 PM Scheduled Provider:Alirio Ramirez MD [facility] [place] Appointment Type:Cardiology Follow Up (FT) Future Scheduled Tests Laboratory* Hep B Core Ab, Tot 11/02/23 * Dwcqz-3-Edwiwxhtzfp 11/02/23 * B-Type Natriuretic Peptide 10/25/23 * [...] Iron Level 11/02/23 * PT 11/02/23 [facility]05-23-2024 Hospital Discharge instructions Patient Education 11/24/2023 [...] asked to follow these instructions. Medicines Take bsuk-efe-seeatmj and prescription medicines only as told by your health care provider. Do not start taking any new medicine unless your health care provider has approved. These include lffd-vug-lhmyeja medicines, vitamins, herbs, and supplements. Some of [...] provider. Document Revised: 05/19/2022 Document Reviewed: 05/19/2022 [employer] Patient Education 2022 [employer]. 11/24/2023 19:09:12 Hepatomegaly Hepatomegaly Hepatomegaly is when [...] asked to follow these instructions. Medicines Take gcyu-bpl-vohdmsp and prescription medicines only as told by your health care provider. Do not start taking any new medicine unless your health care provider has approved. These include lkeb-wci-shvccba medicines, vitamins, herbs, and supplements. Some of [...] provider. Document Revised: 05/19/2022 Document Reviewed: 05/19/2022 [employer]ax Patient Education 2022 [employer]. 11/24/2023 19:09:07 Type 2 Diabetes Mellitus, Self-Care, [...] treat it right away. Always have a 69-nstqwqmge-haerep carbohydrate snack with you to treat low [...] you how to adjust your dosage. Take qhtr-nps-nvptluq and prescription medicines only as told by [...] your health care provider once every year. [place] your teeth and gums two times a [...] meet with a certified diabetes care and career technical education instructor? Where can I find a support group for people with diabetes? Where to find more information For help and guidance and for more information about diabetes, please visit: Spanish Diabetes Association (ADA): www.diabetes.org Spanish Association of Diabetes Care and Education Specialists [...] provider. Document Revised: 11/18/2021 Document Reviewed: 11/18/2021 [employer] Patient Education 2022 [employer]. 11/24/2023 19:09:06 Mediterranean Diet Mediterranean Diet A [...] fresh fruits and vegetables in-season from local [place] markets. Buy plain frozen fruits and vegetables. [...] in common dishes like chili or lasagna. [place] with different cooking methods. Try roasting, broiling, [...] available, such as: ?Vegetable sticks with hummus. ?[place]ian yogurt. ?Fruit and nut trail mix. Eat [...] Quinoa. Meats and other proteins Beans. Almonds. [place] seeds. [place] nuts. Peanuts. Cod. [place]. Scallops. Shrimp. Tuna. Tilapia. Clams. Oysters. Eggs. Poultry without skin. Dairy Low-fat milk. Cheese. [place]ian yogurt. Fats and oils Extra-virgin olive oil. Avocado oil. Grapeseed oil. Beverages Water. Red wine. Herbal tea. Sweets and desserts [place]ian yogurt with honey. Baked apples. Poached pears. [place] mix. Seasonings and condiments Basil. Cilantro. Coriander. [...] Fruit canned in syrup. Vegetables Deep-fried potatoes (nigerien fries). Grains Prepackaged pasta or rice dishes. [...] provider. Document Revised: 07/25/2020 Document Reviewed: 05/22/2020 [employer] Patient Education 2022 [employer]. Follow Up Care 10/26/2023 14:06:56 With:Yocasta MSN, WARDROBE CUSTODIAN-CHART COLLECTOR, Myron Hamilton Address: [address] [place] [phone] When:Within 3 Month(s) Comments:chronic care [facility] [place] 05-09-2024 NoteEchocardiology Procedure Exam Date/Time Accession # Ordering Echo Transthoracic 11/08/2023 15:28 EDT [id number] Adam SAMPSON, Alirio Hooper CPT code 60549 [id number] Reason for Exam (Echo Transthoracic Complete) I50.30;Other (please specify) Report [address] [address] Adult Echocardiogram Report Name: CARMEN BLEDSOE Study Date: 11/08/2023 02:50 PM BP: 128/85 mmHg Patient Location: [id number] [facility] HR: 66 : 1960 Gender: Female Height: 6 in Age: 62 yrs Ethnicity: [facility] Weight: 328 lb Reason For Study: [...] Signed by: Alirio Ramirez MD Transcribed by: [facility] Technologist: [facility]04-24-2024 Hospital Discharge instructions Patient Education [...] by your health care provider. Medicines Take iery-zqj-cadomaf and prescription medicines only as told by [...] provider. Document Revised: 02/22/2022 Document Reviewed: 02/22/2022 [employer] Patient Education 2022 [employer]. 10/26/2023 08:53:45 Heart Failure, Self-Care Heart Failure, [...] when you have heart failure Medicines Take omnn-kea-tynkbwi and prescription medicines only as told by [...] provider. Document Revised: 09/28/2022 Document Reviewed: 01/10/2021 [employer] Patient Education 2022 [employer]. 10/26/2023 08:53:36 DASH Eating Plan DASH Eating [...] Dairy Whole or 2% milk, cream, and eubh-qxx-mghx. Whole or full-fat cream cheese. Whole-fat or [...] more information National Heart, Lung, and Blood [place]: www.nhlbi.nih.gov Spanish Heart Association: www.heart.org Academy of Nutrition and [...] provider. Document Revised: 05/23/2020 Document Reviewed: 05/23/2020 [employer] Patient Education 2022 [employer]. Follow Up Care 10/11/2023 15:08:26 With:Yocasta SMITH, WARDROBE CUSTODIAN-IRVING, Myron Hamilton Address: [address] [place] [phone] When:Within 1 Month(s) [facility] 04-08-2024 Hospital Discharge instructions Patient Education 10/10/2023 [...] treat it right away. Always have a 96-ifleybifl-leuqpy carbohydrate snack with you to treat low [...] you how to adjust your dosage. Take grxo-dyp-yyxsquj and prescription medicines only as told by [...] your health care provider once every year. [place] your teeth and gums two times a [...] meet with a certified diabetes care and career technical education instructor? Where can I find a support group for people with diabetes? Where to find more information For help and guidance and for more information about diabetes, please visit: [place] Diabetes Association (ADA): www.diabetes.org Spanish Association of Diabetes Care and Education Specialists [...] provider. Document Revised: 11/18/2021 Document Reviewed: 11/18/2021 [employer] Patient Education 2022 [employer]. 10/10/2023 07:17:21 Heart Failure Exacerbation Heart Failure [...] Follow these instructions at home: Medicines Take hqmt-gds-xtvprxo and prescription medicines only as told by your health care provider. Do not stop taking your medicines or change the amount you take. If you are having problems or sideeffects from your medicines, talk to your health care provider. If you are having difficulty paying for your medicines, contact a social services designee or your clinic. There are many programs [...] provider. Document Revised: 09/28/2022 Document Reviewed: 01/10/2021 [employer] Patient Education 2022 [employer]. Follow Up Care 10/07/2023 10:35:27 With:Yocasta MSN, WARDROBE CUSTODIAN-CHART COLLECTOR, Myron Hamilton Address: [address] [place] [phone] When:Within 2 Week(s) [facility] + Plan note Diagnostic Tests Pending * CBC w/ Auto Diff 08/10/23 * Comprehensive Metabolic Panel 08/10/23 * HgbA1c 08/10/23 * Lipid Panel 08/10/23 * Microalbumin Level Urine 08/10/23 * D-Dimer 08/10/23 Future Scheduled Tests Laboratory* Vitamin D 25 Hydroxy 10/13/22 * Creatine Kinase 10/13/22 Radiology* US LE Venous Duplex Insufficiency Bilat 10/13/22 [facility] [place] 02-06-2024 Hospital Discharge instructions Patient [...] pray, or go to a place of sabianism. Do some deep breathing. To do this, [...] sugars, or salt (sodium). General instructions Take gsev-hsz-knrzvgn and prescription medicines only as told by [...] (ADAA): www.adaa.org Mental Health [place]: www.mentalhealthamerica.net National [place] on Mental Illness: www.param.org Contact a health [...] department or: Call your local emergency services (432 in the [place] Call a suicide crisis helpline, such as the National Suicide Prevention Lifeline at or 572 in the [place]. This is open 24 hours a day in the [place] Text the Crisis Text Line at 194299 (in the [place] Summary If you are [...] provider. Document Revised: 01/13/2022 Document Reviewed: 04/30/2020 [employer] Patient Education 2022 [employer]. 08/09/2023 20:20:14 Hypertension, Adult Hypertension, Adult High [...] follow-up visits. This is important. Medicines Take uzwu-rkm-dlnxdrc and prescription medicines only as told by [...] provider. Document Revised: 04/27/2022 Document Reviewed: 04/27/2022 [employer] Patient Education 2022 [employer]. 08/09/2023 20:20:10 Type 2 Diabetes Mellitus, Self-Care, [...] treat it right away. Always have a 90-acnvtpwof-yvltnt carbohydrate snack with you to treat low [...] you how to adjust your dosage. Take scjd-tyo-ojnrhhl and prescription medicines only as told by [...] your health care provider once every year. [place] your teeth and gums two times a [...] meet with a certified diabetes care and career technical education instructor? Where can I find a support group for people with diabetes? Where to find more information For help and guidance and for more information about diabetes, please visit: Spanish Diabetes Association (ADA): www.diabetes.org Spanish Association of Diabetes Care and Education Specialists [...] provider. Document Revised: 11/18/2021 Document Reviewed: 11/18/2021 Virax Patient Education 2022 [employer]. 08/09/2023 20:20:09 Health Risks of Smoking Health [...] Department of Health and Human Services: www.smokefree.gov Spanish Lung Association: www.freedomfromsmoking.org Spanish Heart Association: www.heart.org Where to find more [...] provider. Document Revised: 06/22/2022 Document Reviewed: 06/22/2022 Virax Patient Education 2022 [employer]. 08/09/2023 20:20:08 DASH Eating Plan DASH Eating [...] Dairy Whole or 2% milk, cream, and bwxr-knl-juhf. Whole or full-fat cream cheese. Whole-fat or [...] more information National Heart, Lung, and Blood [place]: www.nhlbi.nih.gov Spanish Heart Association: www.heart.org Academy of Nutrition and [...] provider. Document Revised: 05/23/2020 Document Reviewed: 05/23/2020 Virax Patient Education 2022 [employer]. Follow Up Care 11/26/2022 13:53:51 With:Yocasta SMITH, WARDROBE CUSTODIAN-CHART COLLECTOR, Myron Hamilton Address: [address] [place] [phone] When:Within 6 Month(s) Comments:chronic care [facility] [place] 01-18-2024 History of Present illness Narrative* Arlene Zuñiga - 07/21/2023 10:30 AM EST Occupational Therapy [facility] Date: 07/21/2023 Patient Name: Carmen Bledsoe : 1960 Pt Cancelled Appt due to left voice mail with no reason for cancel. Arlene Zuñiga Date: 07/21/2023 [facility] History of Present illness Narrative* Lisseth Luu - 07/20/2023 3:00 PM EST Physical Therapy [facility] Date: 07/20/2023 Patient Name: Carmen Bledsoe : 1960 Patient called to cancel Appt., did not state a reason for cancellation. Lisseth Luu Date: 07/20/2023 [facility] History of Present illness Narrative* Lisseth Luu - 07/14/2023 10:30 AM EST Physical Therapy [facility] Date: 07/14/2023 Patient Name: Carmen Bledsoe : 1960 Patient called to cancel, did not give a reason. She said she will be at her next scheduled appointment on 07/19/23. Lisseth Bell Date: 07/14/2023 [facility] History of Present illness Narrative* Arlene Zuñiga - 07/08/2023 1:30 PM EST Occupational Therapy [facility] Date: 07/08/2023 Patient Name: Carmen Bledsoe : 1960 Pt Cancelled Appt due to no reason for cancel. Arlene Zuñiga Date: 07/08/2023 [facility] History of Present illness Narrative* Negra, Fariba S - 07/06/2023 10:30 AM EST Physical Therapy [facility] Date: 07/06/2023 Patient Name: Carmen Bledsoe : 1960 Patient is not able to a make this appointment, she rescheduled for tomorrow. Fariba S Shock Date: 07/06/2023 documented in this [facility]11-07-2023 Hospital Discharge instructions Patient Education 05/09/2023 22:10:36 [...] back becomes more flexible: 1.Get into a sipyj-inc-wtksn position on a firm bed or the [...] provider. Document Revised: 12/15/2021 Document Reviewed: 09/02/2021 Virax Patient Education 2022 [employer]. Follow Up Care 05/06/2023 08:05:37 With:Ansley Carrero PA-C Address: [address] [place] [phone] When: only if needed Comments:Only if needed [facility] [place] 10-23-2023 Hospital Discharge instructions Patient Education 04/25/2023 [...] Follow these instructions at home: Medicines Take ektl-qcm-lsulwze and prescription medicines only as told by your health care provider. Ask your health care provider if the medicine prescribed to you: ?Requires you to avoid driving or using heavy machinery. ?Can cause constipation. You may need to take these actions to prevent or treat constipation: ?Drink enough fluid to keep your urine pale yellow. ?Take tsgb-pof-pdcgrgr or prescription medicines. ?Eat foods that are [...] provider. Document Revised: 07/09/2019 Document Reviewed: 07/09/2019 Virax Patient Education 2022 [employer]. 04/25/2023 19:33:56 Back Exercises Back Exercises The [...] back becomes more flexible: 1.Get into a udrtu-esu-dhskd position on a firm bed or the [...] provider. Document Revised: 12/15/2021 Document Reviewed: 09/02/2021 Virax Patient Education 2022 [employer]. Follow Up Care 04/21/2023 13:02:20 With:Yocasta SMITH, WARDROBE CUSTODIAN-CHART COLLECTOR, Myron Hamilton Address: [address] [place] [phone] When: only if needed [facility] [place] 09-14-2023 Hospital Discharge instructions [...] treat it right away. Always have a 68-mhiricfpf-nnbgnp carbohydrate snack with you to treat low [...] you how to adjust your dosage. Take helj-ytw-lvpruvo and prescription medicines only as told by [...] your health care provider once every year. [place] your teeth and gums two times a [...] meet with a certified diabetes care and career technical education instructor? Where can I find a support group for people with diabetes? Where to find more information For help and guidance and for more information about diabetes, please visit: Spanish Diabetes Association (ADA): www.diabetes.org Spanish Association of Diabetes Care and Education Specialists [...] provider. Document Revised: 11/18/2021 Document Reviewed: 11/18/2021 Virax Patient Education 2022 [employer]. 03/17/2023 14:42:58 DASH Eating Plan DASH Eating [...] Dairy Whole or 2% milk, cream, and zmfk-fqu-lkcg. Whole or full-fat cream cheese. Whole-fat or [...] more information National Heart, Lung, and Blood [place]: www.nhlbi.nih.gov Spanish Heart Association: www.heart.org Academy of Nutrition and [...] provider. Document Revised: 05/23/2020 Document Reviewed: 05/23/2020 Virax Patient Education 2022 [employer]. 03/17/2023 14:42:56 Insomnia Insomnia Insomnia is a [...] go back to bed. General instructions Take oqui-wdg-hfcjbrv and prescription medicines only as told by [...] the National Suicide Prevention Lifeline at or 222. This is open 24 hours a day. Text the Crisis Text Line at 117138. Summary Insomnia is a sleep disorder that [...] Document Reviewed: 05/31/2022 Elsevier Patient Education 2022 [employer]. Follow Up Care 03/15/2023 07:59:17 With:Yocasta SMITH, WARDROBE CUSTODIAN-IRVING, Myron Hamilton Address: [address] [place] [phone] When: only if needed Comments:keep may appt, fax sleep study to [facility] [place] 05-25-2023 Hospital [...] cheese. Low-sodium cottage cheese. Fats and oils Vickery, canola, soybean, flaxseed, avocado, or sunflower oil. Sweets and desserts Applesauce. Granola bars. Sugar-free pudding and gelatin. Frozen fruit bars. Seasoning and other foods Fresh and dried herbs. Lemon or round valley juice. Vinegar. Low-sodium ketchup. Salt- free marinades, saladdressings, sauces, and seasonings. The items listed above may not be a complete list of foods and beverages you can eat. Contact a dietitian for more information. Foods to avoid Fruits Fruits that are dried with sodium-containing preservatives. Vegetables Canned vegetables. Frozen vegetables with sauce or seasonings. Creamed vegetables. Yemeni fries. Onion rings. Pickled vegetables and sauerkraut. [...] Salted nuts and seeds. Dairy Whole milk, vyam-ciu-bsgf, and cream. Buttermilk. Processed cheese, cheese spreads, [...] provider. Document Revised: 02/02/2021 Document Reviewed: 02/02/2021 Virax Patient Education 2022 [employer] Inc. 11/25/2022 15:14:21 DASH Eating Plan DASH [...] Dairy Whole or 2% milk, cream, and vgfa-zxt-dhco. Whole or full-fat cream cheese. Whole-fat or [...] more information National Heart, Lung, and Blood [place]: www.nhlbi.nih.gov Spanish Heart Association: www.heart.org Academy of Nutrition and [...] provider. Document Revised: 05/23/2020 Document Reviewed: 05/23/2020 Virax Patient Education 2022 [employer]. Follow Up Care 11/10/2022 07:47:50 With:Yocasta SMITH, WARDROBE CUSTODIAN-IRVING, Myron Hamilton Address: [address] [place] [phone] When:Within 6 Month(s) Comments:chronic care [facility] [place] 04-12-2023 Hospital Discharge instructions [...] when you have heart failure Medicines Take msqa-ytc-ecbznuv and prescription medicines only as told by [...] 10/03/2019 Document Revised: 10/02/2019 Document Reviewed: 10/03/2019 Virax Patient Education 2020 [employer] Inc. 10/13/2022 08:14:26 Heart Failure Medicines Heart [...] 11/04/2017 Document Revised: 07/05/2018 Document Reviewed: 11/04/2017 Virax Patient Education 2020 [employer]. 10/13/2022 08:14:22 Heart Failure Eating Plan Heart [...] lifestyle and working with a diet and front end specialist (dietitian)to choose the right foods may [...] cheese. Low-sodium cottage cheese. Fats and oils Vickery, canola, soybean, flaxseed, or sunflower oil. Avocado. Sweets and desserts Apple sauce. Granola bars. Sugar-free pudding and gelatin. Frozen fruit bars. Seasoning and other foods Fresh and dried herbs. Lemon or round valley juice. Vinegar. Low-sodium ketchup. Salt- free marinades, [...] vegetables with sauce or seasonings. Creamed vegetables. Yemeni fries. Onion rings. Pickled vegetables and sauerkraut. [...] Salted nuts and seeds. Dairy Whole milk, ejjb-xvp-hvhi, and cream. Buttermilk. Processed cheese, cheese spreads, [...] 11/04/2017 Document Revised: 08/16/2019 Document Reviewed: 11/04/2017 Virax Patient Education 2020 [employer] Inc. 10/13/2022 08:14:21 Heart Failure and Exercise [...] 11/01/2017 Document Revised: 11/04/2017 Document Reviewed: 11/01/2017 Virax Patient Education 2020 [employer]. 10/13/2022 08:14:18 Form - Daily Weight [...] 09/01/2007 Document Revised: 06/19/2018 Document Reviewed: 06/19/2018 [employer] Patient Education 2020 [employer]. Follow Up Care 09/29/2022 12:46:37 With:Carmen Haley DO Address: When:Within 1 Month(s) [facility]03-29-2023 Hospital Discharge instructions Patient Education 09/29/2022 [...] require a prescription and some youcan purchase vrqx-cmt-bzllsig. Medicines may have nicotine in them to [...] for support and encouragement. Call telephone quitlines (7-488-YKKMNOW), reach out to support groups, or work [...] 06/14/2002 Document Revised: 09/07/2019 Document Reviewed: 09/08/2019 Virax Patient Education 2020 [employer]. 09/29/2022 12:38:01 Heart Failure Eating Plan Heart [...] lifestyle and working with a diet and front end specialist (dietitian)to choose the right foods may [...] cheese. Low-sodium cottage cheese. Fats and oils Vickery, canola, soybean, flaxseed, or sunflower oil. Avocado. Sweets and desserts Apple sauce. Granola bars. Sugar-free pudding and gelatin. Frozen fruit bars. Seasoning and other foods Fresh and dried herbs. Lemon or round valley juice. Vinegar. Low-sodium ketchup. Salt- free marinades, [...] vegetables with sauce or seasonings. Creamed vegetables. Yemeni fries. Onion rings. Pickled vegetables and sauerkraut. [...] Salted nuts and seeds. Dairy Whole milk, ioof-ina-orgg, and cream. Buttermilk. Processed cheese, cheese spreads, [...] 11/04/2017 Document Revised: 08/16/2019 Document Reviewed: 11/04/2017 Virax Patient Education 2020 [employer] Inc. 09/29/2022 12:37:57 Form - Daily Weight [...] 09/01/2007 Document Revised: 06/19/2018 Document Reviewed: 06/19/2018 Virax Patient Education 2019 [employer]. Follow Up Care 09/22/2022 10:08:32 With:Carmen Haley DO Address: When:Within 2 Week(s) [facility]03-24-2023 Hospital Discharge instructions Patient Education 09/24/2022 [...] 06/22/2004 Document Revised: 04/13/2019 Document Reviewed: 11/29/2016 Virax Patient Education 2020 Delivered Follow Up Care 09/13/2022 14:16:08 With:Yocasta SMITH, WARDROBE CUSTODIAN-CHART COLLECTOR, Myron Hamilton Address: [address] [place] [phone] When: Unknown Comments:see nurse for Dr Haley's lab Tuesday. Next primary care visit in November [facility] [place] 03-22-2023 Hospital Discharge instructions [...] 06/20/2006 Document Revised: 09/07/2019 Document Reviewed: 09/07/2019 Virax Patient Education 2020 [employer]. 09/22/2022 09:54:51 Heart Failure Medicines Heart Failure [...] 11/04/2017 Document Revised: 07/05/2018 Document Reviewed: 11/04/2017 Virax Patient Education 2020 [employer]. 09/22/2022 09:54:49 Heart Failure Eating Plan Heart [...] lifestyle and working with a diet and front end specialist (dietitian)to choose the right foods may [...] cheese. Low-sodium cottage cheese. Fats and oils Vickery, canola, soybean, flaxseed, or sunflower oil. Avocado. Sweets and desserts Apple sauce. Granola bars. Sugar-free pudding and gelatin. Frozen fruit bars. Seasoning and other foods Fresh and dried herbs. Lemon or round valley juice. Vinegar. Low-sodium ketchup. Salt- free marinades, [...] vegetables with sauce or seasonings. Creamed vegetables. Yemeni fries. Onion rings. Pickled vegetables and sauerkraut. [...] Salted nuts and seeds. Dairy Whole milk, nzhz-bhi-jzbr, and cream. Buttermilk. Processed cheese, cheese spreads, [...] 11/04/2017 Document Revised: 08/16/2019 Document Reviewed: 11/04/2017 Virax Patient Education 2020 [employer] Inc. 09/22/2022 09:54:44 Heart Failure Action Plan [...] symptoms. Follow these instructions at home: Take xfmi-udd-jolzbjr and prescription medicines only as told by your health care provider. Weigh yourself daily. Your target weight is lb ( kg). ?Call your health care provider if you gain more than lb ( kg) in a day, or more than lb ( kg) in one week. Eat a heart-healthy diet. Work with a diet and front end specialist (dietitian) to create an eatingplan that is best for you. Keep all follow-up visits as told by your health care provider. This is important. Where to find more information Spanish Heart Association: www.heart.org Summary Follow the action [...] 07/30/2017 Document Revised: 06/02/2018 Document Reviewed: 07/30/2017 Virax Patient Education 2020 [employer]. 09/22/2022 09:53:36 Pulmonary Edema Pulmonary Edema Pulmonary [...] Follow these instructions at home: Medicines Take feqr-ise-dsolbht and prescription medicines only as told by [...] infections or injury to the lungs. Take eaaa-dnt-xoatkaw and prescription medicines only as told by your health care provider. This information is not intended to replace advice given to you by your health care provider. Make sure you discuss any questions you have with your health care provider. Document Released: 09/10/2003 Document Revised: 06/02/2018 Document Reviewed: 08/31/2017 Virax Patient Education 2020 [employer]. 09/22/2022 09:53:16 Steps to Quit Smoking Steps [...] require a prescription and some youcan purchase ijzj-csr-woabrau. Medicines may have nicotine in them to [...] for support and encouragement. Call telephone quitlines (4-628-GJNE-NOW), reach out to support groups, or work [...] 06/14/2002 Document Revised: 09/07/2019 Document Reviewed: 09/08/2019 Virax Patient Education 2020 [employer] Inc. 09/22/2022 09:53:10 Health Risks of Smoking [...] these methods. Where to find more information Spanish Lung Association: www.lung.org Spanish Cancer Society: www.cancer.org Summary Smoking cigarettes is [...] 07/28/2005 Document Revised: 09/21/2018 Document Reviewed: 06/24/2017 Virax Patient Education 2020 [employer]. 09/22/2022 09:52:53 Cooking With Less Salt Cooking With Less Salt Cooking with less salt is one way to reduce the amount of sodium you get from food. Depending on your condition and overall health, your health care provider or diet and front end specialist (dietitian) may recommend that you reduce [...] foods. Use sodium-free baking soda when baking. [place], braise, or roast foods to add flavor [...] foods you can pair it with. Herbs [place] leaves Soups, meat and vegetable dishes, and spaghetti sauce. Basil Liberian dishes, soups, pasta, and fish dishes. Cilantro Meat, poultry, and vegetable dishes. [place] powder Marinades and Cameroonian dishes. Chives Salad dressings and potato dishes. Cumin Cameroonian dishes, couscous, and meat dishes. Dill Fish dishes, sauces, and salads. Fennel Meat and vegetable dishes, breads, and cookies. Garlic (do not use garlic salt) Liberian dishes, meat dishes, salad dressings, and sauces. Marjoram Soups, potato dishes, and meat dishes. Oregano Pizza and spaghetti sauce. Parsley Salads, soups, pasta, and meat dishes. Zakia Liberian dishes, salad dressings, soups, and red meats. [...] and low-sodium cheeses. Good cheese choices include North Korean, Mcdavid Kameron, and mozzarella. Always check the label [...] 06/20/2006 Document Revised: 06/02/2018 Document Reviewed: 06/28/2017 Virax Patient Education 2020 [employer]. 09/22/2022 09:52:44 BMI for Adults BMI for [...] height. This can be done either in [place] ([place] or metric measurements. Note that charts are available to help you find your BMI quickly and easily without having to do these calculations yourself. To calculate your BMI in [place]anese ([place] measurements, your health care provider will: [...] medical problems. BMI can be measured using Bhutanese measurements or metric measurements. To interpret your [...] 03/01/2005 Document Revised: 06/02/2018 Document Reviewed: 05/03/2018 Virax Patient Education 2020 [employer]. Follow Up Care 09/17/2022 09:26:53 With:Carmen Haley DO Address: When:09/29/2022 [facility]03-13-2023 Progress note Author José Sanchez [facility] September 13, 2022 9:31pm Note Date/Time September 13, 2022 9:3 1pm [facility] ENTER [address] [place] [address] Hospitalist Progress Note Signed Patient: Carmen Bledsoe MR#: [id number] : 1960 Acct:[id number] Age/Sex: 61 / F Adm Date: 3 Loc: Room: [address] [place] [address] Type: ADM IN Attending Dr: José Sanchez [...] <Electronically signed by José Sanchez MD> 09/13/222130 [facility] Work Phone: 1(813) 621-562703-12-2023 Progress note Author Marilyn Sun [facility] September 12, 2022 12:22pm Note Date/Time September 12, 2022 12: 13pm [facility] ENTER [address] [place] [address] Hospitalist Progress Note Signed Patient: Carmen Bledsoe MR#: [id number] : 1960 Acct:[id number] Age/Sex: 61 / F Adm Date: 3 Loc: 4P Room: [address] [place] [address] Type: ADM IN Attending Dr: Marilyn Sun [...] <Electronically signed by Marilyn Sun MD> 09/12/22 [facility] Work Phone: 1(682) 433-786603-11-2023 History and physical note Author Marilyn Sun [facility] September 11, 2022 11:38am Note Date/Time September 10, 2022 1:3 6pm [facility] ENTER [address] [place] [address] Hospitalist H&P Signed with Anastacio Patient: Carmen Bledsoe MR#: [id number] : 1960 Acct:[id number] Age/Sex: 61 / F Adm Date: 3 Loc: 4N Room: 2G5711-6 Type: ADM IN Attending Dr: Marilyn Sun [...] % (Auto) 21.5 % (.) 09/10/22 11:26 [place] % (Auto) 5.1 % (.) 09/10/22 11:26 Eos % (Auto) 1.6 % (.) 09/10/22 11:26 Baso % (Auto) 1.1 % (.) 09/10/22 11:26 Nucleat RBC Rel Count 0.3 /100 WBC (0-0.5) 09/10/22 11:26 Neut # (Auto) 3.7 x10E3/uL (1.8-7.7) 09/10/22 11:26 Lymph # (Auto) 1.1 x10E3/uL (1.00-4.8) 09/10/22 11:26 [place] # (Auto) 0.3 x10E3/uL (0.0-0.8) 09/10/22 11: [...] signed by Marilyn Sun MD> 09/10/22 1541 [facility] Work Phone: 1(883) 402-195803-11-2023 Progress note Author Marilyn Sun [facility] September 11, 2022 11:36am Note Date/Time September 11, 2022 11: 07am [facility] EN[facility] [address] [place] [address] Hospitalist Progress Note Signed Patient: Carmen Bledsoe MR#: [id number] : 1960 Acct:[id number] Age/Sex: 61 / F Adm Date: 3 Loc: N Room: [address] [place] [address] Type: ADM IN Attending Dr: Marilyn Sun [...] agreement with the plan. Will transfer to [facility] for now. Marilyn Escobedo MD Internal Medicine Hospitalist Attending Physician Documented By: Marilyn Sun MD 09/11/22 11 04 Signed By: <Electronically signed by Marilyn Sun MD> 09/11/22 7331 [facility] Work Phone: 1(680) 196-843503-06-2023 Hospital Discharge instructions Patient Education 09/06/2022 12:23:58 [...] hospital. Follow these instructions at home: Take kvyy-fru-oxuoqfp and prescription medicines only as told by [...] cantaloupe, kiwi, oranges, tomatoes, asparagus, and potatoes. ?[place] juice. ?Tomato juice. ?Red meats. ?Yogurt. Keep [...] 06/20/2006 Document Revised: 01/31/2019 Document Reviewed: 01/31/2019 Virax Patient Education 2020 [employer]. Follow Up Care 08/23/2022 15:13:00 With:Yocasta SMITH, WARDROBE CUSTODIAN-CHART COLLECTOR, Myron Hamilton Address: [address] [place] [phone] When: Unknown Comments:telephone result to maribel. See referrals [facility] [place] 02-09-2023 Hospital Discharge instructions Patient Education 08/12/2022 [...] plan? Your health care provider or certified master safe technician can help you make a plan for [...] stress. Your health care provider or certified master safe technician can help you make a plan for [...] 09/09/2004 Document Revised: 01/12/2018 Document Reviewed: 11/29/2016 Virax Patient Education 2020 [employer]. Follow Up Care 08/12/2022 10:06:58 With:Yocasta SMITH, WARDROBE CUSTODIAN-CHART COLLECTOR, Myron Hamilton Address: [address] [place] [phone] When: Unknown Comments:Echo order for [place]. Telephone result to patient [facility] [place] 06-29-2022 Hospital Discharge instructions [...] of hard liquor (1 oz). Medicines Take iuqc-oov-hzcgusa and prescription medicines only as told by [...] Centers for Disease Control and Prevention: www.cdc.gov/heartdisease Spanish Heart Association: www.heart.org ?Take a free online [...] 02/01/2005 Document Revised: 07/05/2018 Document Reviewed: 07/05/2018 Virax Patient Education [employer]. Follow Up Care 12/24/2021 08:31:22 With:Parish PATE Address: [address] [place], [place] [address] [address] When:Within 6 Month(s) [facility] [place] 01-10-2022 History of Present [...] BMR: 2209 calories Est. total calorie needs: ~9306-6518 Client overall goal for weight is for [...] pizza, or consume foods from community, including frisian food or fast foods. Has not been [...] the referral. Education session duration: 60 minutes; ([id number]). Reminder to ordering Physician/Provider: Diabetes and CKD (non-dialysis) patients may have 2 hours of MNT education in subsequent years. Hours can be spread over any number of visits. [facility] Phone: 1(305) 963-588401-06-2022 History of Present illness Narrative* Sarah Salmon [...] Carmen Bledsoe Referring Provider: DARLEEN Bernardo NP [facility] to learning: Considerations: []Language []Emotional []Health Literacy []Cognitive []Memory changes []Financial []Cultural []Amish []Vision []Hearing []Speech []Lack of desire []Literacy [...] the relationship of blood glucose levels to supervisor intermediates complications of diabetes.Identify preventative measures and standard [...] ) ADA website: Http://www.diabetes.org ( ) Http: //www.Vuze.Mango DSP/-russ/faq.htm ( ) Diabetes Forecast [place] you may get this information on the ADA web site. ( ) Diabetes Interview - [place] ( ) Diabetes Self Management (bi-monthly magazine) ( x ) Support group: [place] third Tuesday of the month at 9 am ( ) Health Journeys Image Paths (relaxation tapes for people with Diabetes) ( ) Your suggestions: Sarah Salmon RN [facility] Diabetes clinic educator 07/09/2021 10:17 AM documented in this [facility] Work Phone: 1(431) 561-980012-30-2021 History of Present illness Narrative* Sarah Salmon [...] Carmen Bledsoe Referring Provider: DARLEEN Bernardo NP [employer] to learning: Considerations: []Language []Emotional []Health Literacy []Cognitive []Memory changes []Financial []Cultural []Amish []Vision []Hearing []Speech []Lack of desire []Literacy [...] not started working on diet because of [place]. Given a one week food diary and [...] the relationship of blood glucose levels to supervisor intermediates complications of diabetes.Identify preventative measures and standard [...] ) ADA website: Http://www.diabetes.org ( ) Http: //www.Vuze.Mango DSP/-russ/faq.htm ( ) Diabetes Forecast [place] you may get this information on the ADA web site. ( ) Diabetes Interview - [place] ( ) Diabetes Self Management (bi-monthly magazine) ( x ) Support group: [place] tuesday of the month at 9 am ( ) Health Journeys Image Paths (relaxation tapes for people with Diabetes) ( ) Your suggestions: Sarah Salmon RN [facility] Diabetes clinic educator 07/02/2021 10:41 AM documented in this [facility] Work Phone: evaluation + Plan note Future Appointments Appointment Date:07/09/2022 11:00:00 AM Scheduled Provider:Parish PATE Location:[facility] Appointment Type: Open [facility] Evaluation + Plan [facility] Evaluation + Plan note Future Appointments Appointment Date:09/24/2022 02:40:00 PM Scheduled Provider:EFREN GRIFFINFPLupis Location:[facility] Appointment Type: ER/Hospital Follow Up Appointment Date:09/29/2022 11:30:00 AM Scheduled Provider:Carmen Haley DO [facility] Type:Cardiology Follow Up (FT) Future Scheduled Tests Laboratory* B-Type Natriuretic Peptide 09/22/22 * Basic Metabolic Panel 09/22/22 * Basic Metabolic Panel 09/22/22 Radiology* NM Myocardial Spect Rest/Stress 2 Day [facility]22 [facility] Future App[facility]ments Appointment Date:09/27/2022 10:40:00 AM Scheduled Provider: Location:[facility] Appointment Type: Nurse Visit Appointment Date:09/29/2022 11:30:00 AM Scheduled Provider:Carmen Haley DO [facility]oint[facility] Type:Cardiology Follow Up (FT) Appointment Date:11/26/2022 02:40:00 PM Scheduled Provider:Yocasta SMITH, WARDROBE CUSTODIAN-Myron VILLATORO Location:[facility] Appointment Type: Open Future Scheduled Tests Laboratory* B-Type Natriuretic Peptide 09/22/22 * Basic Metabolic Panel 09/22/22 * Basic Metabolic Panel 09/22/22 Radiology* NM Myocardial Spect Rest/Stress 2 Day 09/22/22 [facility] Evaluation + Plan note Future Appointments Appointment Date:09/29/2022 11:30:00 AM Scheduled Provider:Carmen Haley DO [facility]oint[facility] Type:Cardiology Follow Up (FT) Appointment Date:11/26/2022 02:40:00 PM Scheduled Provider:SRINIVAS Pereyra Tammy L. Location:[facility] Appointment Type: Open Future Scheduled Tests Laboratory* Basic Metabolic Panel 09/22/22 Radiology* NM Myocardial Spect Rest/Stress 2 Day 09/22/22 [facility] [place] Evaluation + Plan note Future Appointments Appointment Date:09/29/2022 11:30:00 AM Scheduled Provider:Carmen Haley DO [facility]oint[facility] Type:Cardiology Follow Up (FT) Appointment Date:11/26/2022 02:40:00 PM Scheduled Provider:SRINIVAS Pereyra Tammy L. Location:[facility] Appointment Type: Open Diagnostic Tests Pending * Basic Metabolic Panel 09/27/22 Future Scheduled Tests Laboratory* Basic Metabolic Panel 09/22/22 Radiology* NM Myocardial Spect Rest/Stress 2 Day 09/22/22 [facility] Future Appointments Appointment Date:10/13/2022 09:00:00 AM Scheduled Provider:Carmen Haley DO [facility]oint[facility] Type:Cardiology Follow Up (FT) Appointment Date:10/18/2022 01:40:00 PM Scheduled Provider:Lupis SCHWARTZ MD, FAAFP Location:[facility] Appointment Type: Open Appointment Date:11/26/2022 02:40:00 PM Scheduled Provider:SRINIVAS Pereyra Tammy L. Location:[facility] Appointment Type: Open Future Scheduled Tests Laboratory* Basic Metabolic Panel 09/22/22 Radiology* NM Myocardial Spect Rest/Stress 2 Day 09/22/22 [facility] Future Appointments Appointment Date:10/13/2022 09:00:00 AM Scheduled Provider:Carmen Haley DO [facility] Type:Cardiology Follow Up (FT) Appointment Date:10/18/2022 01:40:00 PM Scheduled Provider:Lupis SCHWARTZ MD, FAAFP Location:[facility] Appointment Type:FM Open Appointment Date:10/19/2022 02:00:00 PM [...] Scheduled Provider:SRINIVAS Pereyra Tammy L. [facility] Open Future Scheduled Tests Radiology* NM Myocardial Spect Rest/Stress 2 Day 10/19/22 [facility] [place] Evaluation + Plan note Future Appointments Appointment Date:10/18/2022 01:40:00 PM Scheduled Provider:Lupis SCHWARTZ MD, FAAFP Location:[facility] Appointment Type:FM Open Appointment Date:10/19/2022 02:00:00 PM Scheduled Provider: [facility] Type:CV EKG () Appointment Date:10/19/2022 02:30:00 PM Scheduled Provider: Location[facility] Appointment Type:NM Myocard Spect Multi Rest/Stress-Res Appointment Date:10/19/2022 03:30:00 PM Scheduled Provider: [facility] Appointment Type:NM Myocard Spect Multi Rest/Stress - R Appointment Date:10/20/2022 02:30:00 PM Scheduled Provider: [facility] Appointment Type:NM Myocard Spect MultiRest/Stress-Stre Appointment Date:10/20/2022 03:30:00 PM Scheduled Provider: [facility] Appointment Type:NM Myocard Spect Multi Rest/Stress - S Appointment Date:11/26/2022 02:40:00 PM Scheduled Provider:SRINIVSA Pereyra Tammy L. [facility]: Open Future Scheduled Tests Laboratory* Vitamin D 25 Hydroxy 10/13/22 * Creatine Kinase 10/13/22 Radiology* US LE Venous Duplex Insufficiency Bilat 10/13/22 * US PVR Lower EXT Complete Bilat 10/13/22 * NM Myocardial Spect Rest/Stress 2 Day 10/19/22 [facility] Future Appointments Appointment Date:05/30/2023 02:00:00 PM Scheduled Provider:SRINIVAS Pereyra Tammy L. Location:[facility] Appointment Type: Open Future Scheduled Tests Laboratory* Vitamin D 25 Hydroxy 10/13/22 * Creatine Kinase 10/13/22 Radiology* US LE Venous Duplex Insufficiency Bilat 10/13/22 [facility] Evaluation + Plan note Future Appointments Appointment Date:04/26/2023 10:00:00 AM Scheduled Provider:Alirio Ramirez MD [facility] [place] Appointment Type:Cardiology Follow Up (FT) Appointment Date:05/30/2023 02:00:00 PM Scheduled Provider:SRINIVAS Pereyra Tammy L. Location:[facility] Appointment Type: Open Future Scheduled Tests Laboratory* Vitamin D 25 Hydroxy 10/13/22 * Creatine Kinase 10/13/22 Radiology* US LE Venous Duplex Insufficiency Bilat 10/13/22 * US PVR Lower EXT Complete Bilat 01/11/23 [facility] Future Appointments Appointment Date:05/09/2023 01:00:00 PM Scheduled Provider: [facility] Appoint[facility] Type:US Duplex Procedures (FT) Appointment Date:05/30/2023 02:00:00 PM Scheduled Provider:SRINIVAS Pereyra Tammy L. Location:[facility] Appointment Type: Open Future Scheduled Tests Laboratory* Vitamin D 25 Hydroxy 10/13/22 * Creatine Kinase 10/13/22 Radiology* US PVR w/ Exercise 05/09/23 * US LE Venous Duplex Insufficiency Bilat 10/13/22 [facility] Evaluation + Plan note Future Appointments Appointment Date:07/25/2023 02:00:00 PM Scheduled Provider:SRINIVAS Pereyra Tammy L. Location:[facility] Appointment Type: Open Future Scheduled Tests Laboratory* Vitamin D 25 Hydroxy 10/13/22 * Creatine Kinase 10/13/22 Radiology* US LE Venous Duplex Insufficiency Bilat 10/13/22 [facility] Future Appointments Appointment Date:10/25/2023 03:00:00 PM Scheduled Provider:Alirio Ramirez MD [facility] Appoint[facility] Type:Cardiology Follow Up (FT) Appointment Date:10/26/2023 01:20:00 PM Scheduled Provider:SRINIVAS Pereyra Tammy L. Location:[facility] Appointment Type: Open Appointment Date:11/02/2023 10:30:00 AM Scheduled Provider:Walker Phillip MD Location:[facility] Future Scheduled Tests Laboratory* Vitamin D 25 Hydroxy 10/13/22 * Creatine Kinase 10/13/22 Radiology* US LE Venous Duplex Insufficiency Bilat 10/13/22 [facility] [place] Evaluation + Plan note Future Appointments Appointment Date:10/26/2023 01:20:00 PM Scheduled Provider:SRINIVAS Pereyra Tammy L. Location:[facility] Appointment Type: Open Appointment Date:11/02/2023 10:30:00 AM Scheduled Provider:Walker Phillip MD Location:[facility] Dig[facility]ive [facility] Appointment Type:BAD New Patient Appointment Date:11/10/2023 03:00:00 PM Scheduled Provider: Location:[facility] Appointment Type: Nurse Visit Appointment Date:12/06/2023 03:15:00 PM Scheduled Provider:Alirio Ramirez MD [facility]oint[facility] Type:Cardiology Follow Up (FT) Future Scheduled Tests Laboratory* B-Type Natriuretic Peptide 10/25/23 * Basic Metabolic Panel 10/25/23 Radiology* Echo Transthoracic Complete 10/25/23 [facility] Future Appointments Appointment Date:11/02/2023 10:30:00 AM Scheduled Provider:Walker Phillip MD Location:[facility] Appointment Type:BAD New Patient Appointment Date:11/08/2023 03:00:00 PM Scheduled Provider: Location:[facility] Appointment Type:CV Echo (FT) Appointment Date:11/10/2023 03:00:00 PM Scheduled Provider: Location:[facility] Appointment Type:FM Nurse Visit Appointment Date:11/25/2023 02:40:00 PM Scheduled Provider:SRINIVAS Pereyra Tammy L. Location:[facility] Appointment Type: Open Appointment Date:12/06/2023 03:15:00 PM Scheduled Provider:Alirio Ramirez MD [facility] Type:Cardiology Follow Up (FT) Future Scheduled Tests Laboratory* B-Type Natriuretic Peptide 10/25/23 * Basic Metabolic Panel 10/25/23 Radiology* Echo Transthoracic Complete 11/08/23 [facility] [place] Evaluation + Plan note Future Appointments Appointment Date:11/08/2023 03:00:00 PM Scheduled Provider: [facility] [place] Appointment Type:CV Echo (FT) Appointment Date:11/10/2023 03:00:00 PM Scheduled Provider: Location:[facility] Appointment Type:FM Nurse Visit Appointment Date:11/25/2023 02:40:00 PM Scheduled Provider:SRINIVAS Pereyra Tammy L. Location:[facility] Appointment Type: Open Appointment Date:12/06/2023 03:15:00 PM Scheduled Provider:Alirio Ramirez MD [facility] Appointment Type:Cardiology Follow Up (FT) Appointment Date:12/23/2023 10:30:00 AM Scheduled Provider: Location:[facility] Appointment Type:Surgery FT Appointment Date:12/23/2023 12:00:00 PM Scheduled Provider: Location:[facility] Appointment Type:Surgery FT Appointment Date:01/13/2024 10:45:00 AM Scheduled Provider:Walker Phillip MD Location:[facility] Appointment Type:[facility] Follow Up Future Scheduled Tests Laboratory* Hep B Core Ab, Tot 11/02/23 * Rurib-0-Hkezteacbka 11/02/23 * B-Type Natriuretic Peptide 10/25/23 * [...] Radiology* Echo Transthoracic Complete 11/08/23 [facility] Evaluation + Plan note Future Appointments Appointment Date:11/10/2023 03:00:00 PM Scheduled Provider: [facility]: Nurse Visit Appointment Date:11/25/2023 02:40:00 PM Scheduled Provider:Yocasta MSN, WARDROBE CUSTODIAN-CHART COLLECTOR, Myron Hamilton Location:[facility] Appointment Type:FM Open Appointment Date:12/06/2023 03:15:00 PM Scheduled Provider:Adam SAMPSON, Alirio Hooper [facility] [place] Appointment Type:Cardiology Follow Up (FT) Appointment Date:12/23/2023 10:30:00 AM Scheduled Provider: Location:[facility] Appointment Type:Surgery FT Appointment Date:12/23/2023 12:00:00 PM Scheduled Provider: Location:[facility] Appointment Type:Surgery FT Appointment Date:01/13/2024 10:45:00 AM Scheduled Provider:Walker Phillip MD Location:[facility] Future Scheduled Tests Laboratory* Hep B Core Ab, Tot 11/02/23 * Beoll-2-Evfbxyvmiug 11/02/23 * B-Type Natriuretic Peptide 10/25/23 * [...] Iron Level 11/02/23 * PT 11/02/23 [facility] App[facility]ments Appointment Date:12/06/2023 03:15:00 PM Scheduled Provider:Adam SAMPSON, Alirio Hooper [facility] [place] Appointment Type:Cardiology Follow Up (FT) Appointment Date:12/23/2023 10:30:00 AM Scheduled Provider: Location:[facility] Appointment Type:Surgery FT Appointment Date:12/23/2023 12:00:00 PM Scheduled Provider: Location:[facility] Appointment Type:Surgery FT Appointment Date:01/13/2024 10:45:00 AM Scheduled Provider:Walker Phillip MD Location:[facility] Appointment Type:BADH Follow Up Appointment Date:02/22/2024 01:20:00 PM Scheduled Provider:Yocasta MSN, WARDROBE CUSTODIAN-CHART COLLECTOR, Myron Hamilton Location:[facility] Appointment Type: Open Future Scheduled Tests Laboratory* Hep B Core Ab, Tot 11/02/23 * Pvfyk-5-Uzbepitqrsb 11/02/23 * B-Type Natriuretic Peptide 10/25/23 * [...] Level 11/02/23 * PT 11/02/23 [facility] [place] Evaluation + Plan note Future Appointments Appointment Date:12/23/2023 10:30:00 AM Scheduled Provider: Location:[facility] Appointment Type:Surgery FT Appointment Date:12/23/2023 12:00:00 PM Scheduled Provider: Location:[facility] Appointment Type:Surgery FT Appointment Date:01/13/2024 10:45:00 AM Scheduled Provider:Walker Phillip MD Location:[facility] Appointment Type:BADH Follow Up Appointment Date:02/22/2024 01:20:00 PM Scheduled Provider:Yocasta SMITH, Myron ESPINO Location:[facility] Appointment Type: Open Appointment Date:06/05/2024 01:00:00 PM Scheduled Provider:Alirio Ramirez MD [facility] [place] Appointment Type:Cardiology Follow Up (FT) Future Scheduled Tests Laboratory* Hep B Core Ab, Tot 11/02/23 * Uigwt-8-Dbjzkdvkyoh 11/02/23 * B-Type Natriuretic Peptide 10/25/23 * [...] Iron Level 11/02/23 * PT 11/02/23 [facility] Future App[facility]ments Appointment Date:02/22/2024 01:20:00 PM Scheduled Provider:Yocasta SMITH, Myron ESPINO [facility] Type:FM Open Appointment Date:06/05/2024 01:00:00 PM Scheduled Provider:Alirio Ramirez MD [facility] [place] Appointment Type:Cardiology Follow Up (FT) Future Scheduled Tests Laboratory* Hep B Core Ab, Tot 11/02/23 * Riyei-0-Fiofvaxskui 11/02/23 * B-Type Natriuretic Peptide 10/25/23 * [...] Level 11/02/23 * PT 11/02/23 [facility] Evaluation + Plan note Future Appointments Appointment Date:06/05/2024 01:00:00 PM Scheduled Provider:Adam SAMPSON, Alirio Hooper [facility] [place] Appointment Type:Cardiology Follow Up (FT) Appointment Date:08/29/2024 01:00:00 PM Scheduled Provider:Yocasta MSN, WARDROBE CUSTODIAN-CHART COLLECTOR, Myron Hamilton Location:[facility] [place] Appointment Type: Open Appointment Date:08/31/2024 11:00:00 AM Scheduled Provider: Location:[facility] Appointment Type:Surgery FT Future Scheduled Tests Laboratory* Hep B Core Ab, Tot 11/02/23 * Bsxqo-9-Zhlyuhrwihq 11/02/23 * B-Type Natriuretic Peptide 10/25/23 * [...] Level 11/02/23 * PT 11/02/23 [facility] [place] Evaluation + Plan note Future Appointments Appointment Date:08/29/2024 01:00:00 PM Scheduled Provider:SRINIVAS Pereyra Tammy L. Location:[facility] [place] Appointment Type:FM Open Appointment Date:08/31/2024 11:00:00 AM Scheduled Provider: Location:[facility] Appointment Type:Surgery FT Appointment Date:12/18/2024 11:00:00 AM Scheduled Provider:Rick Hernandez PA-C Location[facility] Appointment Type:Cardiology Follow Up (FT) Future Scheduled Tests Laboratory* Hep B Core Ab, Tot 11/02/23 * Jyhpx-1-Cktaovuyrnb 11/02/23 * B-Type Natriuretic Peptide 10/25/23 * [...] Iron Level 11/02/23 * PT 11/02/23 [facility] Evaluation + Plan note Future Appointments Appointment Date:07/13/2024 11:00:00 AM Scheduled Provider: Location:[facility] [place] Appointment Type:FM Nurse Visit Appointment Date:07/18/2024 12:00:00 PM Scheduled Provider:SRINIVAS Pereyra Tammy L. Location:[facility] [place] Appointment Type: Open Appointment Date:08/29/2024 01:00:00 PM Scheduled Provider:SRINIVAS Pereyra Tammy L. Location:[facility] [place] Appointment Type: Open Appointment Date:08/31/2024 11:00:00 AM Scheduled Provider: Location:[facility] Appointment Type:Surgery FT Appointment Date:12/18/2024 11:00:00 AM Scheduled Provider:Rick Hernandez PA-C Location:[facility] Appointment Type:Cardiology Follow Up (FT) Future Scheduled Tests Laboratory* Hep B Core Ab, Tot 11/02/23 * HgbA1c 07/11/24 * Ghnec-3-Aekhxyguexi 11/02/23 * B-Type Natriuretic Peptide 07/11/24 * [...] PT 11/02/23 * Vitamin B12 Level 07/11/24 [facility] [place] Evaluation + Plan note Future Appointments Appointment Date:07/18/2024 12:00:00 PM Scheduled Provider:Yocasta SMITH, Myron ESPINO Location:[facility] [place] Appointment Type: Open Appointment Date:08/29/2024 01:00:00 PM Scheduled Provider:SRINIVAS Pereyra Tammy L. Location:[facility] [place] Appointment Type: Open Appointment Date:08/31/2024 11:00:00 AM Scheduled Provider: Location:[facility] Appointment Type:Surgery FT Appointment Date:12/18/2024 11:00:00 AM Scheduled Provider:Rick Hernandez PA-C Location[facility] [place] Appointment Type:Cardiology Follow Up (FT) Future Scheduled Tests Laboratory* Hep B Core Ab, Tot 11/02/23 * Cgdbb-6-Scagbqhebtu 11/02/23 * B-Type Natriuretic Peptide 10/25/23 * [...] Level 11/02/23 * PT 11/02/23 [facility] [place] Evaluation + Plan note Future Appointments Appointment Date:07/18/2024 12:00:00 PM Scheduled Provider:Yocasta SMITH, DARLEEN-Myron VILLATORO Location:[facility] [place] Appointment Type: Open Appointment Date:08/29/2024 01:00:00 PM Scheduled Provider:Yocasta SMITH, Myron ESPINO [facility]: Open Appointment Date:08/31/2024 11:00:00 AM Scheduled Provider: Location:[facility] Appointment Type:Surgery FT Appointment Date:12/18/2024 11:00:00 AM Scheduled Provider:Rick Hernandez PA-C Location[facility] [place] Appointment Type:Cardiology Follow Up (FT) Diagnostic Tests Pending * HgbA1c 07/13/24 Future Scheduled Tests Laboratory* Hep B Core Ab, Tot 11/02/23 * Uxiet-0-Ogalaaejtrf 11/02/23 * B-Type Natriuretic Peptide 10/25/23 * [...] Iron Level 11/02/23 * PT 11/02/23 [facility] Evaluation + Plan note Future Appointments Appointment Date:08/31/2024 11:00:00 AM Scheduled Provider: Location:[facility] Appointment Type:Surgery FT Appointment Date:09/12/2024 01:00:00 PM Scheduled Provider:Yocasta SMITH, Myron ESPINO Location:[facility] Appointment Type: Open Appointment Date:12/18/2024 11:00:00 AM Scheduled Provider:Rick Hernandez PA-C [facility] Type:Cardiology Follow Up (FT) Future Scheduled Tests Laboratory* Hep B Core Ab, Tot 11/02/23 * Kzyvj-7-Okczfnbavvn 11/02/23 * B-Type Natriuretic Peptide 10/25/23 * [...] Level 11/02/23 * PT 11/02/23 [facility] [place] Evaluation + Plan note Future Appointments Appointment Date:09/12/2024 01:00:00 PM Scheduled Provider:Yocasta SMITH, Myron ESPINO Location:[facility] Appointment Type:FM Open Appointment Date:12/18/2024 11:00:00 AM Scheduled Provider:Rick Hernandez PA-C [facility] Type:Cardiology Follow Up (FT) Future Scheduled Tests Laboratory* Hep B Core Ab, Tot 11/02/23 * Tadee-2-Citydoxupyv 11/02/23 * B-Type Natriuretic Peptide 10/25/23 * [...] Iron Level 11/02/23 * PT 11/02/23 [facility] Evaluation + Plan note Future Appointments Appointment Date:12/18/2024 11:00:00 AM Scheduled Provider:Rick Hernandez PA-C [facility] [place] Appointment Type:Cardiology Follow Up (FT) Appointment Date:12/19/2024 12:40:00 PM Scheduled Provider:Yocasta MSN, WARDROBE CUSTODIAN-CHART COLLECTOR, Myron Hamilton Location:[facility] [place] Appointment Type: Open [facility] Scheduled Tests Laboratory* Hep B Core Ab, Tot 11/02/23 * Vginx-9-Wwyzvzsjeis 11/02/23 * B-Type Natriuretic Peptide 10/25/23 * [...] Iron Level 11/02/23 * PT 11/02/23 [facility] Evaluation + Plan note Future Appointments Appointment Date:12/19/2024 12:40:00 PM Scheduled Provider:SRINIVAS Pereyra Tammy L. Location:[facility] Appointment Type:FM Open Appointment Date:01/01/2025 02:00:00 PM Scheduled Provider:Rick Hernandez PA-C [facility] Type:Cardiology Follow Up (FT) [facility] evaluation + Plan note Future Appointments Appointment Date:01/01/2025 02:00:00 PM Scheduled Provider:Rick Hernandez PA-C [facility] App[facility] Type:Cardiology Follow Up (FT) Appointment Date:01/02/2025 01:40:00 PM Scheduled Provider:SRINIVAS Pereyra Tammy L. Location:[facility] Appointment Type: Open Future Scheduled Tests Laboratory* Microalbumin Level Urine 12/19/24 * Urine Microalbumin/Creatinine Ratio 12/19/24 [facility] evaluation + Plan note Future Appointments Appointment Date:01/02/2025 01:40:00 PM Scheduled Provider:SRINIVAS Pereyra Tammy L. Location:[facility] Appointment Type:FM Open Appointment Date:01/07/2025 12:30:00 PM Scheduled Provider: [facility] Type:PUL Pulmonary Function Test (FT) Future Scheduled Tests Laboratory* Microalbumin Level Urine 12/19/24 * Urine Microalbumin/Creatinine Ratio 12/19/24 * Basic Metabolic Panel 01/02/25 [facility] evaluation + Plan note Future Appointments Appointment Date:01/07/2025 12:30:00 PM Scheduled Provider: Location:FT.[facility] Appointment Type:PUL Pulmonary Function Test (FT) Appointment Date:01/29/2025 08:30:00 AM Scheduled Provider:Rick Hernandez PA-C [facility] Type:Cardiology Follow Up (FT) Appointment Date:02/04/2025 01:40:00 PM Scheduled Provider:SRINIVAS Pereyra Tammy L. Location:[facility] Appointment Type: Open Future Scheduled Tests Laboratory* Basic Metabolic Panel 01/02/25 [facility] evaluation + Plan note Future Appointments Appointment Date:01/29/2025 08:30:00 AM Scheduled Provider:Rick Hernandez PA-C [facility] Type:Cardiology Follow Up (FT) Appointment Date:02/04/2025 01:40:00 PM Scheduled Provider:SRINIVAS Pereyra Tammy L. Location:[facility] Appointment Type: Open Future Scheduled Tests Laboratory* Basic Metabolic Panel 01/02/25 [facility] evaluation + Plan note Future Appointments Appointment Date:03/05/2025 01:00:00 PM Scheduled Provider:SRINIVAS Pereyra Tammy L. Location:[facility] Appointment Type: Open Appointment Date:03/12/2025 01:15:00 PM Scheduled Provider:Rick Hernandez PA-C [facility] Type:Cardiology Follow Up (FT) Future Scheduled Tests Laboratory* Basic Metabolic Panel 01/02/25 [facility] evaluation + Plan note Future Appointments Appointment Date:03/12/2025 01:15:00 PM Scheduled Provider:Rick Hernandez PA-C [facility] Type:Cardiology Follow Up (FT) Future Scheduled Tests Laboratory* Basic Metabolic Panel 01/02/25 [facility] Evaluation + Plan note Future Appointments Appointment Date:05/21/2025 08:00:00 AM Scheduled Provider: [facility] Appoint[facility] Type:CV Echo Stress (FT) Appointment Date:06/04/2025 09:00:00 AM Scheduled Provider:Rick Hernandez PA-C [facility] Type:Cardiology Follow Up (FT) Future Scheduled Tests Laboratory* Basic Metabolic Panel 01/02/25 Radiology* EC Stress Echo Complete w/ Contrast 05/21/25 [facility] Evaluation note* Diagnosis SOB (shortness of breath) Shortness of breath Obstructive sleep apnea syndrome Obstructive sleep apnea (adult) (pediatric) Moderate persistent asthma without complication Unspecified asthma Tobacco abuse Tobacco use disorder documented in this encounter [employer] Phone: evalljtbra note* Diagnosis SOB (shortness of breath) Shortness of breath Obstructive sleep apnea (adult) (pediatric) Moderate persistent asthma without complication Unspecified asthma documented in this encounter [employer] [facility] Phone: evaluation note* Diagnosis Hypertension, unspecified type Bilateral leg edema Edema documented in this encounter [employer] Phone: evalxtsifd note* Diagnosis Onset Date Resolution Status Acute congestive heart failure acute Acute exacerbation of CHF (congestive heart failure) acute Acute respiratory failure with hypoxia acute Chest pain acute Shortness of breath [facility] Work Phone: Evaluation note* Diagnosis Onset Date Resolution Status Acute congestive heart failure acute Acute exacerbation of CHF (congestive heart failure) acute Acute respiratory failure with hypoxia acute Chest pain acute COPD with acute exacerbation acute Shortness of breath acute [facility] Work Phone: Evaluation note* Diagnosis Alcohol abuse- Primary Alcohol abuse, unspecified documented in this encounter [employer] Phone: evaldzedxv note* Diagnosis Left hand weakness Muscle weakness (generalized) documented in this encounter [employer] Phone: evalkhkvzp note* Diagnosis Weakness of both legs Other musculoskeletal symptoms referable to limbs documented in this encounter [employer] Phone: evalwqtgxg note* Diagnosis Fatigue, unspecified type Screening, lipid Screening for lipoid disorders documented in this encounter [employer] Phone: evalxafnmp note* Diagnosis Right hip pain Pain in joint, pelvic region and thigh documented in this encounter [employer] note* Diagnosis Gastroesophageal reflux disease, unspecified whether esophagitis present- Primary Morbid obesity with BMI of 50.0-59.9, adult BRENDA (obstructive sleep apnea) Obstructive sleep apnea (adult) (pediatric) Type 2 diabetes mellitus without complication, without long-term current use of insulin documented [facility] this encounter [facility]* Diagnosis Onset Date Resolution Status Admit Date Lumbar radiculopathy acute Octo 2024 9:52am [facility] Work Phone: Hospital course Narrative No data available for this section [facility] Hospital Discharge instructions No data available for this section [facility] Additional Instructions Continue use of CPAP as before.[facility] Work Phone: Hospital Discharge instructions* Attachments The following attachments cannot be sent through Care Everywhere. * Alcohol Intoxication: Acute (Bhutanese) [facility]: progress note No data available for this section [facility] [employer]iap[employer] for referral (narrative) Referred by: Parish PATE [facility] Rentzp for referral (narrative) Referred by: Lupis SCHWARTZ MD, FAAFP Referred by: Lupis SCHWARTZ MD, FAAFP [facility] Retawt for referral (narrative) , colonscopy, hx of polyps Referred by: Yocasta SMITH, WARDROBE CUSTODIAN-CHART COLLECTORMyron [facility] Rekpwb for referral (narrative) , X-ray tonight, failed PT Referred by: Yocasta SMITH, WARDROBE CUSTODIAN-CHART COLLECTORMyron [facility] Reajuf for referral (narrative)No reason for referral information availableMet[facility] Work Phone: Assessments Diagnosis Syncope and collapse [...] Documents on File Type Date Recorded Patient Dust Mixer Expl anation Advance Directives and Living Will Power of Packing Clerk Latest Code Status on File Code Status Date Activated Date Inactivated Comments Full Code 06/18/2018 1:23 PM 06/19/2018 8:22 PM Full Code 04/26/2018 5:22 PM 04/27/2018 1:14 PM Full Code 04/26/2018 11:04 AM 04/26/2018 5:16 PM Full Code 03/15/2018 1:38 PM 03/16/2018 3:51 PM Full Code 03/15/2018 8:18 AM 03/15/2018 1:38 PM Documents on File Type Date Recorded Patient Dust Mixer Expl anation Advance Directives and Living Will Power of Packing Clerk Latest Code Status on File Code Status Date Activated Date Inactivated Comments Full Code 06/18/2018 1:23 PM 06/19/2018 8:22 PM Full Code 04/26/2018 5:22 PM 04/27/2018 1:14 PM Full Code 04/26/2018 11:04 AM 04/26/2018 5:16 PM Full Code 03/15/2018 1:38 PM 03/16/2018 3:51 PM Full Code 03/15/2018 8:18 AM 03/15/2018 1:38 PM Documents on File Type Date Recorded Patient Dust Mixer Expl anation ACP-Advance Directive ACP-Power of Packing Clerk Latest Code Status on File Code Status Date Activated Date Inactivated Comments Full Code 03/17/2020 11:39 AM Full Code 03/17/2020 8:35 AM 03/17/2020 11:39 AM Full Code 06/18/2018 1:23 PM 06/19/2018 8:22 PM Documents on File Type Date Recorded Patient Dust Mixer Expl anation ACP-Advance Directive ACP-Power of Packing Clerk Latest Code Status on File Code Status [...] Procedures EKG 12 Lead Joselito Hsu MD [address] [place] [address] Status Reason Specialty Diagnoses / Procedures Referred By Contact Referred To Contact Not Required - Recondo Pulmonary Function Testing Diagnoses SOB (shortness of breath) Procedures Full PFT Study With Bronchodilator HC BEFORE / AFTER BRONCHODILATOR Joselito Hsu MD [address] [place] [address] [employer] [address] [place] [address] Status Reason Specialty Diagnoses / Procedures Referred By Contact Referred To Contact Pending Review Radiology Diagnoses Hypertrophy of uterus Right lower quadrant pain Procedures US NON OB TRANSVAGINAL Mulu Dean APRN - [place] [address] [place] [address] Status Reason Specialty Diagnoses / Procedures Referre d By Contact Referred To Contact Open Radiology Diagnoses Hypertrophy of uterus Right lower quadrant pain Procedures US PELVIS COMPLETE Mulu Dean APRN - CNP [facility] [place] [address] Status Reason Specialty Diagnoses / Procedures Referre d By Contact Referred To Contact Open Radiology Diagnoses RLQ abdominal pain Procedures CT ABDOMEN PELVIS W IV CONTRAST Additional Contrast? Oral Mulu Dean APRN - [address] [place] [address] Specialty Diagnoses / Procedures Referred By Joan dawson Referred To Contact Diagnoses SOB (shortness of breath) Obstructive sleep apnea syndrome Moderate persistent asthma without complication Tobacco abuse Procedures Full PFT Study With Bronchodilator Mulu Dean APRN - [place] [address] [place] [address] Referral ID Status Reason Start Date Expiration Date V isits Requested Visits Authorized [id number] Pending Review 05/15/2021 05/14/2022 1 1 Specialty Diagnoses / Procedures Referred By Joan dawson Referred To Contact Cardiology Diagnoses Hypertension, unspecified type Bilateral leg edema I10 (ICD-10-CM) - Hypertension, unspecified type Procedures Echocardiogram complete KS ECHO TTHRC R-T 2D W/WOM-MODE COMPL SPEC&COLR D 27115 - KS ECHO TTHRC R-T 2D W/WOM-MODE COMPL SPEC&COLR D Lupis Schwartz MD [address] [place] [address] Dr. [place], [place] 0 Referral ID Status Reason Start Date Expiration Date Visits Re quested Visits Authorized [id number] Closed 08/25/2022 08/20/2023 1 1 Discharge Instructions [...] one drug, even if it is an egdq-yng-olthatn medication, herb, or dietary supplement, be sure [...] / AFTER BRONCHODILATOR Joselito Hsu MD [address] [place] [address] [employer] [address] [place] [address] Status Reason Specialty Diagnoses / Procedures Referred By Contact Referred To Contact Pending Review Radiology Diagnoses Hypertrophy of uterus Right lower quadrant pain Procedures HC US PELVIS COMPLETE Mulu Dean APRN - CHART COLLECTOR [address] [place] [address] [facility] [address] [place] [address] Status Reason Specialty Diagnoses / Procedures Re ferred By Contact Referred To Contact Diagnoses Right lower quadrant abdominal pain Weight gain RIGHT LOWER ABDOMINAL PAIN, WEIGHT GAIN Procedures KS COLONOSCOPY FLX DX W/COLLJ SPEC WHEN PFRMD KS ESOPHAGOGASTRODUODENOSCOPY TRANSORAL DIAGNOSTIC COLONOSCOPY EGD ESOPHAGOGASTRODUODENOSCOPY Glenn Malik MD [address] [place] [address] [facility] Status Reason Specialty Diagnoses / Procedures Referre d By Contact Referred To Contact Closed Radiology Diagnoses Right lower quadrant pain Procedures CT ABDOMEN PELVIS W CONTRAST Mulu Dean APRN - CHART COLLECTOR [address] [place] [address] [place] [address] Specialty Diagnoses / Procedures Referred By Contmick t Referred To Contact Diagnoses SOB (shortness of breath) Obstructive sleep apnea syndrome Moderate persistent asthma without complication Tobacco abuse Procedures Full PFT Study With Bronchodilator Mulu Dean APRN - CNP [address] [place] [address] Referral ID Status Reason Start Date Expiration Date V isits Requested Visits Authorized [id number] Pending Review 05/15/2021 05/14/2022 1 1 Reason Comments Education Class Specialty Diagnoses / Procedures Referred By Contac t Referred To Contact Cardiology Diagnoses Hypertension, unspecified type Bilateral leg edema I10 (ICD-10-CM) - Hypertension, unspecified type Procedures Echocardiogram complete KS ECHO TTHRC R-T 2D W/WOM-MODE COMPL SPEC&COLR D 03978 - [place] ECHO TTHRC R-T 2D W/WOM-MODE COMPL SPEC&COLR D Lupis Schwartz MD [address] [place], [place] [address] Referral ID Status Reason Start Date Expiration Date Visits Re quested Visits Authorized [id number] Closed 08/25/2022 08/20/2023 1 1 Reason Comments Chest Pain Chest pain, SOB x1 d ay patient states this started after had 2 bottles of rum today Specialty Diagnoses / Procedures [facility] Referred To Contact Radiology Diagnoses Fatigue, unspecified type Screening, lipid Procedures VL DUP LOWER EXTREMITY VENOUS BILATERAL US DUP LOWER EXTREMITIES BILATERAL VENOUS Carmen Haley, DO [address] [place] [address] Referral ID Status Reason Start Date Expiration Date Visits Re quested Visits Authorized [id number] Open 11/17/2022 11/17/2023 1 1 Reason Comments New Patient Carmen is interested in bariatric surgery for weight loss and improvement of comorbid conditions. Specialty Diagnoses / Procedures [facility] Referred To Contact Multispecialty Diagnoses Morbid obesity with BMI of 50.0-59.9, adult BRENDA (obstructive sleep apnea) Type 2 diabetes mellitus with morbid obesity Benign hypertension [employer] [facility], Other [address] [place] [address] Phone: tel: Coco Dean MD [address] [place] [address] Phone: tel: Referral ID Status Reason Start Date Expiration Date V isits Requested Visits Authorized [id number] Pending Review 09/28/2024 10/23/2025 1 1 Care Teams (unrecognized sec tion and content) Personnel Name: Yocasta SMITH, WARDROBE CUSTODIAN-CHART COLLECTOR, Myron Hamilton Address: [address] [place] [address]- Telecom: Placement Specialist Relationship Specialty Start Date End Date Donnamiller, Mulu, WARDROBE CUSTODIAN - CHART COLLECTOR [address] [place] [address] PCP - General Family Medicine 02/17/17 Placement Specialist Relationship Specialty Start Date End Date Mulu Dean WARDROBE CUSTODIAN - CHART COLLECTOR [address] [place] [address] PCP - General Family Medicine 02/17/17 Placement Specialist Relationship Specialty Start Date End Date Mulu Dean WARDROBE CUSTODIAN - CHART COLLECTOR [address] [place] [address] PCP - General Family Medicine 02/17/17 Placement Specialist Relationship Specialty Start Date End Date Mulu Dean WARDROBE CUSTODIAN - CHART COLLECTOR [address] [place] [address] PCP - General Family Medicine 02/17/17 Placement Specialist Relationship Specialty Start Date End Date Mulu Dean WARDROBE CUSTODIAN - CHART COLLECTOR [address] [place] [address] PCP - General Family Medicine 02/17/17 Placement Specialist Relationship Specialty Start Date End Date Mulu Dean WARDROBE CUSTODIAN - CHART COLLECTOR [address] [place] [address] PCP - General Family Medicine 02/17/17 Placement Specialist Relationship Specialty Start Date End Date Mulu Dean, WARDROBE CUSTODIAN - CHART COLLECTOR [address] [place] [address] PCP - General Family Medicine 02/17/17 Team [...] Lupis Schwartz MD Primary Care Provider Active Placement Specialist Relationship Specialty Start Date End Date Mulu Dean, WARDROBE CUSTODIAN - CHART COLLECTOR [address] [place] [address] PCP - General Family Medicine 02/17/17 Placement Specialist Relationship Specialty Start Date End Date Mulu Dean, WARDROBE CUSTODIAN - CHART COLLECTOR [address] [place] [address] PCP - General Family Medicine 02/17/17 Placement Specialist Relationship Specialty Start Date End Date Mulu Dean, WARDROBE CUSTODIAN - CHART COLLECTOR [address] [place] [address] PCP - General Family Medicine 02/17/17 Placement Specialist Relationship Specialty Start Date End Date Mulu Dean, WARDROBE CUSTODIAN - CHART COLLECTOR PCP - General Family Medicine 02/17/17 Placement Specialist Relationship Specialty Start Date End Date Myron Rust WARDROBE CUSTODIAN - CHART COLLECTOR [address] [place] [address] PCP - General Nurse Practitioner Family 04/29/23 Placement Specialist Relationship Specialty Start Date End Date Myron Rust, WARDROBE CUSTODIAN - CHART COLLECTOR [address] [place] [address] PCP - General Nurse Practitioner Family 04/29/23 Placement Specialist Relationship Specialty Start Date End Date Myron Rust WARDROBE CUSTODIAN - CHART COLLECTOR [address] [place] [address] [address] PCP - General Nurse Practitioner Family 04/29/23 Placement Specialist Relationship Specialty Start Date End Date Myron Rust CNP [address] [phone] PCP - General Nurse Practitioner - Family [...] section and content) DATE CREATED AUTHOR 09/18/2022 [facility] DATE CREATED AUTHOR AUTHOR'S ORGANIZ ATION 02/10/2023 [facility] DATE CREATED AUTHOR AUTHOR'S ORGANIZ ATION 09/01/2023 [facility] DATE CREATED AUTHOR AUTHOR'S ORGANIZ ATION 12/23/2023 [facility] [place] [facility] DATE CREATED AUTHOR AUTHOR'S ORGANIZ ATION 07/18/2024 [facility] DATE CREATED AUTHOR AUTHOR'S ORGANIZ ATION 09/06/2024 [facility] DATE CREATED AUTHOR AUTHOR'S ORGANIZ ATION 09/15/2024 [facility] DATE CREATED AUTHOR AUTHOR'S ORGANIZ ATION 12/21/2024 [facility] DATE CREATED AUTHOR AUTHOR'S ORGANIZ ATION 12/23/2024 [facility] DATE CREATED AUTHOR AUTHOR'S ORGANIZ ATION 12/27/2024 [facility] DATE CREATED AUTHOR AUTHOR'S ORGANIZ ATION 12/28/2024 [facility] DATE CREATED AUTHOR AUTHOR'S ORGANIZ ATION 12/29/2024 [facility] DATE CREATED AUTHOR AUTHOR'S ORGANIZ ATION 12/30/2024 [facility] DATE CREATED AUTHOR AUTHOR'S ORGANIZ ATION 01/03/2025 [facility] DATE CREATED AUTHOR AUTHOR'S ORGANIZ ATION 01/04/2025 [facility] DATE CREATED AUTHOR AUTHOR'S ORGANIZ ATION 01/06/2025 [facility] DATE CREATED AUTHOR AUTHOR'S ORGANIZ ATION 01/13/2025 [facility] DATE CREATED AUTHOR AUTHOR'S ORGANIZ ATION 01/25/2025 [facility] DATE CREATED AUTHOR AUTHOR'S ORGANIZ ATION [facility] CREATED AUTHOR AUTHOR'S ORGANIZ ATION 02/06/2025 [facility] DATE CREATED AUTHOR AUTHOR'S ORGANIZ ATION 02/21/2025 [facility] DATE CREATED AUTHOR AUTHOR'S ORGANIZ ATION 04/10/2025 [facility] Scheduled Active and Recently Administ [...] BE BASED ON THE PRIMARY CLINICAL RECORDS. [facility]. provides no warranty or guarantee of the accuracy or completeness of information in this document.
[2025-04-22 10:53] VITALS: BP 154/79; PULSE 82; TEMP 36.6; O2SAT 93
[2025-04-22 11:31] VITALS: BP 167/90; BP 172/94; PULSE 79; PULSE 80; O2SAT 96
[2025-04-22] MEDS: IOHEXOL 240 MG/ML - 10 ML VIAL INJ (11:32)
[2025-04-22] MEDS: 0.9 % SODIUM CHLORIDE 10 ML SYRINGE - SALINE FLUSH INJ (11:32)
[2025-04-22] MEDS: BUPIVACAINE HCL 0.25% PF 25 MG/10 ML VIAL INJ (11:32)
[2025-04-22] MEDS: LIDOCAINE HCL 2% 400 MG/20 ML MDV 3 ML INJ (11:33)
[2025-04-22] MEDS: METHYLPREDNISOLONE ACETATE 80 MG/ML VIAL INJ (11:33)
--- NOTE | 2025-04-22 11:35 | W.PM.PROCNOT ---
Date of procedure: 04/22/25 Pre-op diagnosis: Pain due to lumbar stenosis with neurogenic claudication Post-op diagnosis: same as pre-op Procedure: Procedure: Bilateral L5-S1 transforaminal epidural steroid injection Medications: Bupivacaine 0.25% 2cc, lidocaine 2% 1cc, depomedrol 80mg The patient was seen and examined in the preoperative holding area.? Informed consent was obtained and placed on the chart.? Patient was brought to the medical procedure unit and placed in the prone position where a timeout was completed verifying the correct patient, procedure site, position, and planned special equipment using sterile aseptic technique.? Under direct fluoroscopic visualization a 25-gauge Quincke tipped spinal needle was advanced at level left L5-S1 to the designated neural foramen where contrast dye was injected to show adequate spread.? There was no evidence of vascular or adverse uptake.? Epidural spread was appreciated.? The above-mentioned injectate was then placed in a 1.5 mL aliquot preceded by negative aspiration.? The needle was removed. The same procedure, at the same level, was completed on the opposite side. ? Patient was taken to the postprocedural recovery area and monitored for an appropriate length of time before found suitable for discharge in the accompaniment of a responsible adult. Anesthesia: Local Surgeon: Calvin [place] Pathology: none sent Condition: stable Disposition: no change
== END 2025-04-22 11:39 | disposition home or self-care (01) ==
PROVIDERS: Visit Provider Anesthesiology
DX: M48.062 Spinal stenosis, lumbar region with neurogenic claudication (principal); M54.50 Low back pain, unspecified; E11.8 Type 2 diabetes mellitus with unspecified complications; Z79.85 Long-term (current) use of injectable non-insulin antidiabetic drugs
CPT/HCPCS: 36415; 64483; 82948; J0665; J1010; Q9966

== ENCOUNTER 2025-05-08 12:34 | Outpatient (OUT) | payer OTHER, SELFPAY ==
--- OUTSIDE RECORDS SUMMARY | 2025-05-08 12:36 | XMS_ITS | Clinical Summary ---
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 Plasma Arc Name Role Phone Unavailable Primary Care Provider Unavailabl e Social History Tobacco UseTypesPacks/DayYears UsedDateSmoking Tobacco: Never Assessed CommentsUnknownSex and Gender InformationValueDate RecordedSex Assigned at Not on fileLegal XtgHrbvls87/15/2023 8:15 PM EDTGender IdentityNot on fileSexual OrientationNot on file Last Filed Vital Signs Vital SignReadingTime TakenCommentsBlood Hecrxzht887/9411 12:00 PM EST Pulse--Temperature--Respiratory Rate--Oxygen Saturation--Inhaled Oxygen Concentration--Sdrmhy203 kg (295 lb 6.4 oz)06/01/2018 12:00 PM JRQMdjhoh138.4 cm (5' 5.5 )06/01/2018 12:00 PM ESTBody Mass Index48.41108/01/2017 12:00 PM EST Plan of Treatment Not on file Insurance * Guarantor: Carmen Casiano KAccount TypeRelation to PatientDate of BirthPhone Billing AddressPersonal/WhcksfKayx59/15/1961 [address] [place] [address]
--- OUTSIDE RECORDS SUMMARY | 2025-05-08 12:36 | XMS_ITS | Clinical Summary ---
Author Organization [facility] [place] Address [address] [place] [address] Phone Care Team Providers Care Transportation Escort Name Role Phone Unavailable Primary Care Provider Unavailabl e Social History Tobacco UseTypesPacks/DayYears UsedDateSmoking Tobacco: Never Assessed CommentsUnknownSex and Gender InformationValueDate RecordedSex Assigned at Not on fileLegal WtcOsnaqe56/13/2023 11:45 AM EDTGender IdentityNot on file Sexual OrientationNot on file Plan of Treatment Health MaintenanceDue DateLast DoneCommentsCT Lnprdicuqqxq72/15/1963Colonoscopy 1962Colorectal Cancer Fiipwjtqg57/15/1963FIT-DNA (Cologuard)1962FIT 1962HIV Simpzlsti52/15/1963Lipid Panel1962 3571Dpqbuihjpzvdt82/15/1963 Yearly Adult Sscfmodh00/15/1963MMR Vaccines (1 of 1 - Standard series)11/16/1963 Hepatitis C Ktkjeuldk63/15/1981Cervical Cancer Ithbrvsbe70/15/1984HPV/Cotest 11/16/1983Pap Smear11/16/1983DTaP/Tdap/Td Vaccines (1 - Tdap)1984Mammogram 2002Pneumococcal Vaccine (1 of 1 - PCV)2012Zoster Vaccines (1 of 2) 2012Influenza Vaccine (#1)5COVID-19 Vaccine (1 - season) 2025RSV High Risk: (Elderly (60+) or Population) (1 - 1-dose 75+ series)2037HIB VaccinesAged OutNo longer eligible based on patient's age to complete this topicHPV VaccinesAged OutNo longer eligible based on patient's age to complete this topicHepatitis A VaccinesAged OutNo longer eligible based on patient's age to complete this topicHepatitis B VaccinesAged OutNo longer eligible based on patient's age to complete this topicIPV VaccinesAged OutNo longer eligible based on patient's age to complete this topicMeningococcal VaccineAged OutNo longer eligible based on patient's age to complete this topic Rotavirus VaccinesAged OutNo longer eligible based on patient's age to complete this topic
--- OUTSIDE RECORDS SUMMARY | 2025-05-08 12:36 | XMS_ITS | Patient Health Record ---
Author Organization [facility] Address [address] [place] [address] Care Team Providers Care Firmware Test Engineer Name Role Phone Gio Menendez Unavailable [phone] Allergies No Known Allergies Reason For Referral No Information Medications Medication SIG (Take, Route, Frequency, Duration) Notes Start Date End Date Status spironolactone 25 mg for 90 Days ActiveARIPiprazole 2 mgfor 90 MkmuJsfetfssyduypeuxgd37/20/2024ctivegabapentin 300 mg1 cap(s) orally 1 pill once a day for 3 days, 1 pill twice a day for 3 days, 1 pill three times a day there after for 30 day(s)01/10/2024ctive TRAZODONE HCL 50 MGtake 1 tablet by mouth at bedtime for 30 DaysActivePotassium Chloride (Eqv-K-Tab) 20 mEqfor 30 DaysActivepantoprazole 40 mgtake 1 tablet by mouth once daily for 90 DaysActiveMedrol Dose Pack 4 mgas directed ORAL DIRECTED 11/21/20236180Njcvyanvbvmbcsb69/20/2024ctivefurosemide 40 mgfor 90 DaysActive lsvjvNQOA09/20/2024ctiveTrulicity Pen 1.5 mg/0.5 mLinject 1 and 1/2 milligram subcutaneously every week for 28 DaysActiveJardiance 10 mgfor 90 DaysActive FLUoxetine HCl 20 MGfor 90 DaysActive Social History Tobacco Use: Social History Observation Description Date Details (start date - stop date) Current Smoker NA - NA Smoking History Question Answer Notes Smoking Status Current Smoker Alcohol Screening Question Answer Notes Did you have a drink containging alcohol in the last year? Yes Obcosi1FpcrrtutguooldKuwdkjyo Problems Problem Type SNOMED Code ICD Code Onset Dates Problem Status W/U Status Risk Notes Problem 590290338395466 Right hip pain (M25.551) MighhhbatmfrzqwJyyjrly204461012Qopwzh radiculopathy (M54.16)Activeconfirmed [id number] in right hip (M25.551)ActiveconfirmedProblem 013306245426168Xocwtvpgahzp bursitis of right hip (M70.61)ActiveconfirmedProblem [id number] primary osteoarthritis, right hip (M16.11)Active confirmedProblemLumbar radiculopathy (219040122)Radiculopathy, lumbar region (M54.16)ActiveconfirmedProblemLumbosacral spondylosis with radiculopathy (513873277)Lumbosacral spondylosis with radiculopathy (M47.27)Activeconfirmed ProblemSpinal stenosis of lumbar region (50101234)Lumbosacral spinal stenosis (M48.07)VqumsmazhufgaruQfebner33296546TFP (degenerative disc disease), lumbosacral (M51.37)SsjvttuztpnsjlgYpqiafy15959381Wmehylweegpe lumbar disc (M51.36)Activeconfirmed Plan Of Treatment Pending Test Test Name Order Date MRI : Lumbosacral Spine W/O Contrast - 7 8 11/21/2023 DJM-Hip Injection with Inter ventional Radiology (Skin Injection: 1% Lidocaine without Epinephrine, Hip Injection: 2ml 0.2.5% Marcaine, 2ml 1% Lidocaine, 1ml Depomedrol 80mg/ml) 08/22/2023 Insurance Providers Payer Name Payer Address Payer Phone Subscriber Number Group Number Insured Name Patient Relationship to Insured Coverage Start Date Coverage End Date Medicaid [employer] [place] [address] [place] [id number] [phone] [id number] Troy BLEDSOE - patient is the insured Medical (General) History Medical History History ICD Code Asthma/COPD Type II diabetesDepressionAnxietySleep apneaCPAP Machine:Do you use the CPAP machine? Yes
--- OUTSIDE RECORDS SUMMARY | 2025-05-08 12:43 | XMS_ITS | CCD ---
Author Organization [facility] Inform ion [facility] Care Team Providers Care Affirmative Action Officer Name Role Phone Mulu Dean Primary Care Provider Mulu DEAN Primary Care Physician [phone] Paris Rust Primary Care Physician Jermaine HEEL COVER SOFTENER - DRAPERY HEMMER AUTOMATIC, Mulu Primary Care Pro vider NON STAFF Primary Care Provider Unavailabl e DO Joo Ramos Emergency Provider MD Marilyn Sun Admit Provider MD Marilyn Sun Attending Provider DO Joo Ramos Emergency Provider MD Marilyn Sun Admit Provider MD José Sanchez Attending Provider MD Lupis Schwartz Primary Care Provider [phone] Marilyn Sun Admitting Unavailable José Sanchez Attending Unavailable Lupis Schwartz Primary Care Unavailable Lupis SCHWARTZ Primary Care Physician [phone] Jermaine HEEL COVER SOFTENER - DRAPERY HEMMER AUTOMATIC, Mulu Primary Care Pro vider Nigel MOREJON - Paris VILLATORO Primary Care Provider PARIS RUST Referring Unavailable PARIS RUST Primary Care Unavailable Paris Rust Primary Care Physician KAMALJIT MENENDEZ Attending Unavailable KAMALJIT MENENDEZ Referring Unavailable NIGEL, PARIS Primary Care Unavailable ALIRIO RAMIREZ Referring Unavailab le NIGEL, PARIS Primary Care Unavailable MEGHAN, EDA Referring Unavailable NIGEL, PARIS Primary Care Unavailable KAMALJIT MENENDEZ Referring Unavailable NIGEL, PARIS Primary Care Unavailable NIGEL, PARIS Referring Unavailable NIGEL, PARIS Primary Care Unavailable NIGEL, PARIS Referring Unavailable NIGEL, PARIS Primary Care Unavailable NIGEL, PARIS Referring Unavailable NIGEL, PARIS Primary Care Unavailable MEGHAN, EDA Referring Unavailable NIGEL, PARIS Primary Care Unavailable MEGHAN, EDA Referring Unavailable NIGEL, PARIS Primary Care Unavailable NIGEL, PARIS Primary Care Unavailable LYNSEY, VESELIN Attending Unavailable LYNSEY, VESELIN Attending Unavailable NIGEL, PARIS Primary Care Unavailable MEGHAN, EDA Referring Unavailable NIGEL, PARIS Primary Care Unavailable Nigel, MSN, HEEL COVER SOFTENER-DRAPERY HEMMER AUTOMATIC Paris Hamilton Attending U jesika Rust, MSN, HEEL COVER SOFTENER-DRAPERY HEMMER AUTOMATIC Paris Hamilton Admitting U jesika CARBAJAL, XXXX Referring Unavailable Alirio Ramirez Attending Unavaila AISHA Enriquez Attending Unavailable NONE, XXXX Referring Unavailable Walker Phillip Talal Admitting Unavaila ble Walker Phillip Attending Unavaila Walker Wesley Referring Unavaila Alirio Brandon Consulting Unavaila Alirio Brandon Attending Unavaila Alirio Brandon Referring Unavaila Alirio Brandon Admitting Unavaila MD Alirio Brandon Consulting Unava ilAlirio Bird Consulting Unavaila ble Walker Phillip Tallorena Attending Unavaila ble Walker Phillipal Attending Unavaila caroline Rust, MSN, HEEL COVER SOFTENER-DRAPERY HEMMER AUTOMATIC Paris Hamilton Attending U jesika Rust, MSN, HEEL COVER SOFTENER-DRAPERY HEMMER AUTOMATIC Paris Hamilton Attending U jesika Rust, MSN, HEEL COVER SOFTENER-DRAPERY HEMMER AUTOMATIC Paris Hamilton Attending U navailshahab Rust, MSN, HEEL COVER SOFTENER-DRAPERY HEMMER AUTOMATIC Paris Hamilton Attending U jesika Rust, MSN, HEEL COVER SOFTENER-DRAPERY HEMMER AUTOMATIC Paris Hamilton Attending U Alirio Ennis Attending Unavaila ble NONE, XXXX Referring Unavailable Nigel Paris VILLATORO Primary Care Provider Nigel, Paris L. Attending Unavailable Nigel, Paris L. Attending Unavailable Nigel, Paris L. Attending Unavailable Nigel, Paris L. Admitting Unavailable Nigel, MSN, HEEL COVER SOFTENER-DRAPERY HEMMER AUTOMATIC Paris L. Admitting U navailable Nigel, MSN, HEEL COVER SOFTENER-DRAPERY HEMMER AUTOMATIC Paris L. Attending U navailable Hajdmomo, Astrit H Attending Unavailable Abisai Kaur Attending Unavailable Abisai Kaur Admitting Unavailable Othman, Mahmoud Consulting Unavailable Othman, Mahmoud Consulting Unavailable Othman, Mahmoud Consulting Unavailable Nigel, Paris L. Attending Unavailable Nigel, Paris L. Admitting Unavailable Nigel, Paris L. Attending Unavailable Nigel, Paris L. Attending Unavailable Nigel, Paris L. Attending Unavailable Nigel, Paris L. Attending Unavailable Rick Hernandez Attending Unavailable NONE, XXXX Referring Unavailable Nigel, Paris L. Attending Unavailable Nigel, Paris L. Admitting Unavailable Nigel, Paris L. Admitting Unavailable Nigel, Paris L. Attending Unavailable Nigel, Paris L. Admitting Unavailable Nigel, Paris L. Attending Unavailable Nigel, Paris L. Attending Unavailable Nigel, Paris L. Attending Unavailable Nigel, MSN, HEEL COVER SOFTENER-DRAPERY HEMMER AUTOMATIC Paris L. Admitting U navailable Nigel, MSN, HEEL COVER SOFTENER-DRAPERY HEMMER AUTOMATIC Paris L. Attending U navailable Nigel, Paris L. Admitting Unavailable Nigel, Paris L. Attending Unavailable Nigel, Paris L. Referring Unavailable Abisai Kaur. Attending Unavailable Abisai Kaur Admitting Unavailable Oneal Newman Attending Unavailable Coco DEAN Attending Unavailabl e AVITA OUTSIDE ORDER, OTHER Referring Unava ilable Nigel, Paris L. Admitting Unavailable Nigel, Paris L. Attending Unavailable Nigel, Paris LFranco Admitting Unavailable Nigel, Paris L. Attending Unavailable Glenn Perkins DO Attending Provider Nigel MANAGER OF RADIOLOGY-C Paris Jeannette Primary Care Provider NONE, XXXX Referring Unavailable Rick Hernandez Attending Unavailable NONE, XXXX Referring Unavailable Hernandez, Rick A Attending Unavailable Oneal Newman Attending Unavailable Paris Rust Attending Unavailable Paris Rust Attending Unavailable Giedraitis , Calvin Hunt Attending Unavailable Giedraitis , Calvin Hunt Attending Unavailable Giedraitis , Calvin Hunt Attending Unavailable Giedraitis , Calvin Hunt Attending Unavailable Giedraitis , Calvin Hunt Attending Unavailable Giedraitis , Calvin Hunt Attending Unavailable Allergies Allergy ClassificationReported Allergen(s)Allergy TypeDate of OnsetReaction(s) FacilityamLODIPine (1 source)amLODIPine; Translations: [amlodipine]Drug AllergyLeg [facility]. [facility] HospitalAngiotensin Converting Enzyme (DESMOND) Inhibitors (1 source)Lisinopril; Translations: [lisinopril]Drug AllergyPersistent cough (finding), Tongue swelling (finding)[facility] ([facility] source)metFORMIN; Translations: [metformin]Drug AllergyDiarrhea (finding) [facility] Doc (20 sources)amLODIPine; Translations: [amlodipine]Drug Ntmwgfy28-62-9904[facility] (20 sources)Lisinopril; Translations: [lisinopril]Drug AllergyPersistent cough (finding), Tongue swelling (finding)[facility] (20 sources)metFORMIN; Translations: [metformin]Drug Akodhcm90-85-4554Rjowltte (finding), [facility]arrheaGal[facility] (13 sources)No Known Medication Allergies; Translations: [No Known Medication Allergies]Propensity to adverse reactions (disorder)[facility] Repository Medications Current Medications MedicationDrug Class(es)DatesSig (Normalized)Sig (Original)0.25 MG, 0.5 MG Dose 3 ML semaglutide 0.68 MG/ML Pen Injector [Ozempic] (4 sources)Start: 03-87-9494fitkus 0.5 mg by subcutaneous injection every week Ozempic 2 mg/3 mL (0.25 mg or 0.5 mg dose) subcutaneous solution 0.5 mg, SubCutaneous, qWeek, # 2 EA, Refills(s) 0, Pharmacy: [facility] #[id number], 168, cm, 07/18/24 11:59:00 EST, Height/Length Dosing, 148.4, kg, 07/18/24 11:59:00 EST, Weight Dosing Start Date: 07/18/24 Status: OrderedAdvair HFA 115 mcg-21 mcg/inh inhalation aerosol with adapter (3 sources)Start: 69-54-0972sznv 2 puff(s) by inhalation twice dailyAdvair HFA 115 mcg-21 mcg/inh inhalation aerosol with adapter 2 puff(s), Inhalation, BID, 8 gm, Refill(s) 1, [facility] #16, 168, cm, 01/29/25 8:19:00 EDT, Height/Length Dosing, 159, kg, 01/24/25 8:55:00 EDT, Weight Dosing Start Date: 01/29/25 Status: Ordered Quantity: 8.0 Unit: g Repeatnumber: 2 Indications: Moderate persistent asthma, uncomplicated;albuterol 0.83 mg/ml inhalation solution (20 sources)beta2-Adrenergic AgonistStart: 51-02-9018zhjq 2.5 mg by inhalation every six hoursalbuterol 0.083% Inh Rochelle 3 mL 2.5 mg, 3 mL, NEB, q6hr Shortness of breath or wheezing, 100 EA, Refill(s) 1, [facility] #16, 168, cm, 04/09/25 11:43:00 EDT, Height/Length Dosing, 160.8, kg, 04/09/25 11:43:00 EDT, Weight Dosing Start Date: 04/09/25 Status: Ordered Quantity: 100.0 Unit: EA R epeat number: 2 Indications: Moderate persistent asthma, uncomplicated;Start: 33-12-1651iuxy 2.5 mg by inhalation every six hoursalbuterol 0.083% Inh Rochelle 3 mL 2.5 mg, 3 mL, Inhalation, q6hr Shortness of breath or wheezing, 100 EA, Refill(s) 1, [facility] #[id number], 168, cm, 10/11/23 14:32:00 EDT, Height/Length Dosing, 160.2, kg, 10/11/23 14:32:00 EDT, Weight Dosing Start Date: 10/11/23 Status: OrderedStart: 13-12-6154sxtfvvhoh (PROVENTIL) nebulizer solution 2.5 mg Start: 13-91-3069ygtczxbmq (PROVENTIL) nebulizer solution 2.5 mgStart: 94-12-2773nlezfsatd (PROVENTIL) nebulizer solution 2.5 mgtake 2 puff(s) by inhalation every four hours as needed for wheezingAlbuterol 108 (90 Base) MCG/ACT Aero Soln inhaler Inhale 2 puffs every 4 hours as needed for Wheezing. Activetake 2 puff(s) by inhalation every four hours as needed for wheezing albuterol sulfate HFA 108 (90 Base) MCG/ACT inhaler Inhale 2 puffs into the lungs every 4 hours as needed for Wheezing 0 ActiveAlbuterol (Eqv-Ventolin HFA) 90 mcg/inh inhalation aerosol (12 sources)Start: 45-70-9188yzpg 2 puff(s) by inhalation every six hours Albuterol (Eqv-Ventolin HFA) 90 mcg/inh inhalation aerosol 2 puff(s), Inhalation, q6hr Shortness ofbreath or wheezing, 6.7 gm, Refill(s) 1, [facility] #16, 168, cm, 04/09/25 11:43:00 EDT, Height/Length Dosing, 160.8, kg, 04/09/25 11:43:00 EDT, Weight Dosing Start Date: 04/09/25 Status: Ordered Quantity: 6.7 Unit: g Repeat number: 2 Indications: Chronic obstructive pulmonary disease with (acute) exacerbation;Start: 42-20-8388xfcy 2 puff(s) by inhalation every six hoursAlbuterol (Eqv-Ventolin HFA) 90 mcg/inh inhalation aerosol 2 puff(s), Inhalation, q6hr Shortness ofbreath or wheezing, 6.7 gm, Refill(s) 1, [facility] #16, 168, cm, 12/27/24 10:40:00 EDT, Height/Length Dosing, 165.6, kg, 12/27/24 10:40:00 EDT, Weight Dosing Start Date: 12/29/24 Status: Ordered Quantity: 6.7 Unit: g Repeat number: 2 Indications: Chronic obstructive pulmonary disease with (acute) exacerbation; Start: 46-98-7145tliv 2 puff(s) by inhalation every six hoursAlbuterol (Eqv- Ventolin HFA) 90 mcg/inh inhalation aerosol 2 puff(s), Inhalation, q6hr Shortness ofbreath or wheezing, 6.7 gm, Refill(s) 3, [facility] #[id number], 168, cm, 11/27/24 14:20:00 EDT, Height/Length Dosing, 159.8, kg, 11/27/24 14:20:00 EDT, Weight Dosing Start Date: 11/27/24 Status:Ordered Quantity: 6.7 Unit: g Repeat number: 4Alcohol wipes (20 sources)Start: 62-24-8496Pmsihjc wipes Alcohol wipes, See Instructions, 100 EA, 3, Use to check BS daily dx E11.9, [facility] #[id number], Supply, 163, cm, 12/30/21 11:09:00 EDT, Height/Length Dosing, 154, kg, 12/30/21 11:09:00 EDT, Weight Dosing Start Date: 04/13/22 Status: Ordered Quantity: 100.0 Unit: EA Repeat number: 4Start: 93-70-1163Odhnapq wipes Alcohol wipes, See Instructions, 100 EA, 3, Use to check BS daily dx E11.9, [facility] #[id number], Supply, 163, cm, 12/30/21 11:09:00 EDT, Height/Length Dosing, 154, kg, 12/30/21 11:09:00 EDT, Weight Dosing Start Date: 04/13/22 Status: OrderedStart: 36-16-5299Vhhurat wipes Alcohol wipes, See Instructions, 300 EA, 3, Use to check BS TID and PRN dx E11.9, [facility], Supply, 170, cm, 05/27/21 8:31:00 EST, Height/Length Dosing, 157.8, kg, 05/27/21 8:31:00 EST, Weight Dosing Start Date: 06/03/21 Status: Orderedamoxicillin 875 mg / clavulanate 125 mg oral tablet (1 source)Penicillin-class AntibacterialStart: 04-09-2025 End: 27-18-3979Bdjtifmhp 875 mg-125 mg Tab 1 tab(s), Oral, q12hr for 7 day(s), 14 tab(s), Refill(s) 0, [facility] #16, 168, cm, 04/09/25 11:43:00 EDT, Height/Length Dosing, 160.8, kg, 04/09/25 11:43:00 EDT, Weight Dosing Start Date: 04/09/25 Stop Date: 04/16/25 Status: Ordered Quantity: 14.0 Unit: tab(s) Repeat number: 1ARIPiprazole 5 mg oral tablet (20 sources)Atypical AntipsychoticStart: 23-79-6257itqp 1 tablet by mouth once dailyAbilify 5 mg Tab 5 mg = 1 tab(s), Oral, Daily, # 90 tab(s), Refills(s) 4, Pharmacy: [facility] #[id number], 167, cm, 02/22/24 13:09:00 EDT, Height/Length Dosing, 137, kg, 02/22/24 13:09:00 EDT, Weight Dosing Start Date: 05/07/24 Status: Ordered Quantity: 90.0 Unit: tab(s) Repeat number: 5Start: 77-14-6044penb 1 tablet by mouth once dailyAbilify 2 mg Tab 2 mg = 1 tab(s), Oral, Daily, # 90 tab(s), Refills(s) 3, Pharmacy: [facility] #[id number], 167.6, cm, 12/23/23 10:59:00 EDT, Height/Length Dosing, 136, kg, 12/23/23 10:59:00 EDT, Weight Dosing Start Date: 01/19/24 Status: OrderedARIPiprazole (ABILIFY PO) Abilify 0 Activeatorvastatin 80 mg oral tablet (20 sources)HMG-CoA Reductase Inhibitortake 1 tablet by mouth once daily atorvastatin 80 MG tablet Take 1 tablet by mouth Every night. Activeazithromycin 250 mg oral tablet (1 source)Macrolide AntimicrobialStart: 12-29-2024 End: 15-31-0709rsfs 1 tablet by mouth once dailyazithromycin 250 mg Tab 250 mg = 1 tab(s), Oral, Daily, X 3 day(s), # 3 tab(s), Refills(s) 0, Pharmacy: [facility] #16, 168, cm, 12/27/24 10:40:00 EDT, Height/Length Dosing, 165.6, kg, 12/27/24 10:40:00 EDT, Weight Dosing Start Date: 12/29/24 Stop Date: 01/01/25 Status: Ordered Quantity: 3.0 Unit: tab(s) Repeat number: 1 Indications: Chronic obstructive pulmonary disease with (acute) exacerbation;Blood Pressure Kit - XL Cuff (1 source)Start: 12-81-8995Pzjhl Pressure Kit - XL Cuff Blood Pressure Kit - XL Cuff, See Instructions, 1 EA, 0, Use at home daily, [facility] #16, Supply, 170, cm, 10/02/19 13:41:00 EDT, Height/Length Measured, 156, kg, 10/02/19 13:41:00 EDT, Weight Measured Start Date: 10/02/19 Status: Ocpxhlj30 hr buPROPion hydrochloride 150 mg extended release oral tablet (3 sources)AminoketoneStart: 44-54-2758yiid 1 tablet by mouth every twenty-four hoursbuPROPion 150 mg/24 hours XL Tab 150 mg = 1 tab(s), Oral, q24hr, # 30 tab(s), Refills(s) 0, Pharmacy: [facility] #16, 168, cm, 02/04/25 13:39:00 EDT, Height/Length Dosing, 155.1, kg, 02/04/25 13:39:00 EDT, Weight Dosing Start Date: 02/04/25 Status: Ordered Quantity: 30.0 Unit: tab(s) Repeat number: 1calcium chloride 0.0014 meq/ml / potassium chloride 0.004 meq/ml / sodium chloride 0.103 meq/ml / sodium lactate 0.028 meq/ml injectable solution (2 sources)Start: 03-17-2020 End: 62-52-9578zxxzfzay ringers infusioncelecoxib 200 mg oral capsule (3 sources)Nonsteroidal Anti-inflammatory DrugStart: 96-05-1407vzqv 1 capsule by mouth twice daily as needed for painCeleBREX 200 mg Cap 200 mg = 1 cap(s), Oral, BID, PRN as needed for pain, with food, # 60 cap(s), Refills(s) 0, Pharmacy: [facility] #[id number], 167, cm, 05/09/23 8:15:00 EST, Height/Length Dosing, 145.6, kg, 05/09/23 8:15:00 EST, Weight Dosing Start Date: 05/09/23 Status: Orderedcephalexin 500 mg oral capsule (4 sources)Cephalosporin AntibacterialStart: 12-29-2024 End: 79-64-7723zmpr 1 capsule by mouth four times dailycephalexin 500 mg Cap 500 mg = 1 cap(s), Oral, QID, X 8 day(s), # 32 cap(s), Refills(s) 0, Pharmacy: [facility] #16, 168, cm, 12/27/24 10:40:00 EDT, Height/Length Dosing, 165.6, kg, 12/27/24 10:40:00 EDT, Weight Dosing Start Date: 12/29/24 Stop Date: 01/06/25 Status: Ordered Quantity: 32.0Unit: cap(s) Repeat number: 1 Indications: Cellulitis of unspecified part of limb;cholecalciferol 0.125 mg oral capsule (7 sources)Vitamin DStart: 27-95-0600qnmk 1 capsule by mouth once daily at mealtimeD 5000 125 MCG (5000 UT) CAPS capsule take 1 capsule by mouth once daily with food 0 10/14/2022 Activedicyclomine hydrochloride 10 mg oral capsule (7 sources)AnticholinergicStart: 10-79-7217wqvq 2 capsules by mouth four times daily as needed for painBentyl 10 mg Cap 20 mg = 2 cap(s), Oral, QID, PRN Pain, # 21 cap(s), Refills(s) 0, Pharmacy: [facility] #[id number], 168, cm, 07/11/24 11:16:00 EST, Height/Length Dosing, 152.8, kg, 07/11/24 11:21:00 EST, Weight Dosing Start Date: 07/11/24 Status: OrderedDulaglutide (20 sources)GLP-1 Receptor AgonistStart: 74-90-6174Htnolorbvyw (Trulicity) 3 mg/0.5 mL pen injector Active MG SUBCUT April 03, 2025 12:00am Complies with drug therapyStart: 70-15-6125tcincp 3 mg by subcutaneous injection every week Trulicity Pen 3 mg/0.5 mL subcutaneous solution See Instructions, inject 3 (THREE) mg under the skin EVERY week, # 2 mL, Refills(s) 3, Pharmacy: [facility] #16, 168, cm, 03/12/25 13:02:00EDT, Height/Length Dosing, 154.2, kg, 03/12/25 13:02:00 EDT, Weight Dosing Start Date: 04/01/25 Status: Ordered Quantity: 2.0 Unit: mL Repeat number: 1Start: 74-26-9232ahxdsv 3 mg by subcutaneous injection every weekTrulicity Pen 3 mg/0.5 mL subcutaneous solution See Instructions, INJECT 3 (THREE) MG UNDER THE SKIN EVERY WEEK., # 2 mL, Refills(s) 0, Pharmacy: [facility] #16, 168, cm, 02/04/25 13:39:00 EDT, Height/Length Dosing, 155.1, kg, 02/04/25 13:39:00 EDT, Weight Dosing Start Date: 02/25/25 Status: Ordered Quantity: 2.0 Unit: mL Repeat number: 1Start: 68-77-0168whelix 3 mg by subcutaneous injection every weekTrulicity Pen 3 mg/0.5 mL subcutaneous solution See Instructions, ADMINISTER 3 MG UNDER THE SKIN EVERY WEEK, # 2 mL, Refills(s) 0, Pharmacy: [facility] #16, 168, cm, 01/29/25 8:19:00 EDT,Height/Length Dosing, 159, kg, 01/24/25 8:55:00 EDT, Weight Dosing Start Date: 01/29/25 Status: Ordered Quantity: 2.0 Unit: mL Repeat number: 1Start: 63-49-3712sxjpif 3 mg by subcutaneous injection every week Trulicity Pen 3 mg/0.5 mL subcutaneous solution See Instructions, ADMINISTER 3 MG UNDER THE SKIN EVERY WEEK, # 2 mL, Refills(s) 0, Pharmacy: [facility] #[id number], 168, cm, 11/27/24 14:20:00 EDT, Height/Length Dosing, 159.8, kg, 11/27/24 14:20:00 EDT, Weight Dosing Start Date: 12/17/24 Status:Ordered Quantity: 2.0 Unit: mL Repeat number: 1Start: 02-84-8955ckvdog 3 mg by subcutaneous injection every weekTrulicity Pen 3 mg/0.5 mL subcutaneous solution 3 mg, SubCutaneous, qWeek, # 2 mL, Refills(s) 2, Pharmacy: [facility] #[id number], 168, cm, 09/12/24 13:00:00 EDT, Height/Length Dosing, 154.1, kg, 09/12/24 13:00:00 EDT, Weight Dosing Start Date: 10/01/24 Status: Ordered Quantity: 2.0 Unit: mL Repeat number: 3 Indications: Type 2 diabetes mellitus with other specified complication;Start: 44-64-2938cvkvxl 3 mg by subcutaneous injection every weekTrulicity Pen 3 mg/0.5 mL subcutaneous solution 3 mg, SubCutaneous, qWeek, # 4 EA, Refills(s) 2, Pharmacy: [facility] #[id number], 167, cm, 02/22/24 13:09:00 EDT, Height/Length Dosing, 137, kg, 02/22/24 13:09:00 EDT, Weight Dosing Start Date: 02/22/24 Status: OrderedStart: 01-17-2024 Trulicity Pen 1.5 mg/0.5 mL subcutaneous solution See Instructions, inject 1 AND 1/2 milligrams subcutaneously weekly, # 2 mL, Refills(s) 0, Pharmacy: [facility] #[id number], 167.6, cm, 12/23/23 10:59:00 EDT, Height/Length Dosing, 136, kg, 12/23/23 10:59:00 EDT, Weight Dosing Start Date: 01/17/24 Status: OrderedStart: 40-95-8330ztyaya 1.5 mg by subcutaneous injection every weekTrulicity Pen 1.5 mg/0.5 mL subcutaneous solution 1.5 mg, SubCutaneous, qWeek, # 4 EA, Refills(s) 0, Pharmacy: [facility] #[id number], 168, cm, 12/06/23 14:55:00 EDT, Height/Length Dosing, 139, kg, 12/05/2413:55:00 EDT, Weight Dosing Start Date: 12/22/23 Status: OrderedStart: 75-31-4547lpkctv 1.5 mg by subcutaneous injection every week Trulicity Pen 1.5 mg/0.5 mL subcutaneous solution 1.5 mg, SubCutaneous, qWeek, # 4 EA, Refills(s) 0, Pharmacy: [facility] #[id number], 168, cm, 10/11/23 14:32:00 EDT, Height/Length Dosing, 160.2, kg, 10/11/23 14:32:00 EDT, Weight Dosing Start Date: 10/11/23 Status: OrderedStart: 40-98-0952Agicaielniq 0.75 MG/0.5ML SOPN Inject 0.75 mg into the skin 0 09/13/2022 Activeempagliflozin 10 mg oral tablet (20 sources)Sodium-Glucose Cotransporter 2 InhibitorStart: 82-50-5460ndwb 1 tablet by mouth once dailyEmpagliflozin (Jardiance) 10 mg tablet Active 10 MG PO Daily April 03, 2025 12:00am Complies with drug therapyStart: 67-20-6911sdib 1 tablet by mouth once dailyJardiance 10 mg oral tablet 10 mg, Oral, Daily, # 90 tab(s), Refills(s) 4, [id number], 168, cm, 09/12/24 13:00:00 EDT, Height/Length Dosing, 154.1, kg, 09/12/24 13:00:00 EDT, Weight Dosing Start Date: 10/26/24 Status: Ordered Quantity: 90.0 Unit: tab(s) Repeat number: 5FLUoxetine 20 mg oral capsule (20 sources)Serotonin Reuptake InhibitorStart: 02-17-5737nury 40 mg by mouth once dailyFluoxetine Active 40 MG PO Daily September 10, 2022 1:00amStart: 72-43-3740rxgf 2 capsules by mouth once dailyFLUoxetine 20 mg Cap 40 mg = 2 cap(s), Oral, Daily, # 180 cap(s), Refills(s) 4, Pharmacy: [facility] #16, 168, cm, 01/29/25 8:19:00 EDT, Height/Length Dosing, 159, kg, 01/24/25 8:55:00 EDT, Weight Dosing Start Date: 01/29/25 Status: Ordered Quantity: 180.0 Unit: cap(s) Repeat number: 5take 1 capsule by mouth once dailyFLUoxetine (PROZAC) 40 MG capsule Take 1 capsule by mouth nightly 0 Activefluticasone propionate 0.05 mg/actuat metered dose nasal spray (1 source)CorticosteroidStart: 19-10-1043Awzttnq 0.05 mg/inh Thonotosassa 2 spray(s), Nasal, Daily, 16 gram, Refill(s) 0, each nostril, [facility] #16, 168, cm, 04/09/25 11:43:00 EDT, Height/Length Dosing, 160.8, kg, 04/09/25 11:43:00 EDT, Weight Dosing Start Date: 04/09/25 Status: Ordered Quantity: 16.0 Unit: g Repeat number: 1fluticasone / salmeterol (20 sources)Corticosteroid, beta2-Adrenergic AgonistStart: 11-27-2024 End: 30-38-6242qlmj 1 puff(s) by inhalation twice dailyAdvair Diskus 250 mcg-50 mcg inhalation powder 1 puff(s), Inhalation, BID for 30 day(s), 60 blister(s), Refill(s) 0, [facility] #[id number], 168, cm, 11/27/24 14:20:00 EDT, Height/Length Dosing,159.8, kg, 11/27/24 14:20:00 EDT, Weight Dosing Start Date: 11/27/24 Stop Date: 12/27/24 Status: Ordered Quantity: 60.0 Unit: blister(s) Repeat number: 1Start: 99-00-1941Obktzegwdar-Salmeterol (ADVAIR DISKUS IN) See Instructions, Refill(s) 0 0 09/16/2022 ActiveStart: 19-90-0757Huwhtp Diskus 100 mcg-50 mcg inhalation powder See Instructions, Refill(s) 0 Start Date: 09/16/22 Status: OrderedStart: 92-61-3461Zsobr: 68-43-0472Yfysedljyow Propion-Salmeterol (Advair Diskus) 100-50 mcg/dose blister with device Active 1 INH INHALATION Twice daily 60 September 14, 2022 12:00amfurosemide 40 mg oral tablet (20 sources)Loop DiureticStart: 96-72-9428ngsn 1 tablet by mouth twice daily furosemide 40 mg Tab 40 mg = 1 tab(s), Oral, BID, # 60 tab(s), Refills(s) 2, Pharmacy: [facility] #16, 168, cm, 01/01/25 13:49:00 EDT, Height/Length Dosing, 161.7, kg, 01/01/25 13:49:00 EDT, Weight Dosing Start Date: 01/01/25 Status: Ordered Quantity: 60.0 Unit: tab(s) Repeat number: 3 Ind ications: Unspecified diastolic (congestive) heart failure; Localized edema; Start: 60-07-4666oivr 1 tablet by mouth twice dailyfurosemide 40 mg Tab 40 mg = 1 tab(s), Oral, BID, # 60 tab(s), Refills(s) 0, Pharmacy: [facility] #16, 168, cm, 12/27/24 10:40:00 EDT, Height/Length Dosing, 165.6, kg, 12/27/24 10:40:00 EDT, Weight Dosing Start Date: 12/29/24 Status: Ordered Quantity: 60.0 Unit: tab(s) Repeat number: 1 Indications: Localized edema; Acute on chronic diastolic (congestive) heart failure;Start: 09-82-6211towa 1 tablet by mouth once dailyfurosemide 40 mg Tab 40 mg = 1 tab(s), Oral, Daily, # 90 tab(s), Refills(s) 1, Pharmacy: [facility] #[id number], 168, cm, 06/05/24 13:03:00 EST, Height/Length Dosing, 145.9, kg, 06/05/24 13:03:00 EST, Weight Dosing Start Date: 06/05/24 Status: Ordered Quantity: 90.0 Unit: tab(s) Repeat number: 2 Indications: Localized edema;Start: 65-99-3427Zjlch 20 mg Tab 20 mg = 1 tab(s), Oral, As Directed, # 30 tab(s), Refills(s) 1, Pharmacy: [facility] #[id number], 167, cm, 09/29/22 11:37:00 EDT, Height/Length Dosing, 149.2, kg, 09/29/22 11:37:00 EDT, Weight Dosing Start Date: 09/29/22 Status: OrderedStart: 45-02-8038toib 1 tablet by mouth once dailyfurosemide 40 mg Tab 40 mg = 1 tab(s), Oral, Daily, # 90 tab(s), Refills(s) 1, Pharmacy: [facility] #[id number], 167.6, cm, 12/23/23 10:59:00 EDT, Height/Length Dosing, 136, kg, 12/23/23 10:59:00 EDT, Weight Dosing Start Date: 01/31/24 Status: OrderedStart: 86-45-8339hica 2 tablets by mouth once daily Lasix 20 mg Tab 40 mg = 2 tab(s), Oral, Daily, Take with potassium supplment., # 180 tab(s), Refills(s) 5, [facility]: [facility][id number], 163, cm, 08/20/22 14:05:00 EST, Height/Length Dosing, 155, kg, 08/20/22 14:05:00 EST, Weight Dosing Start Date: 08/20/22 Status: OrderedStart: 07-27-2021 End: 31-50-4037uakn 1 tablet by mouth once dailyFurosemide 20 mg Tablet Discontinued 20 MG PO Daily September 10, 2022 1:00am September 14, 2022 11:24am gabapentin 800 mg oral tablet (20 sources)Anti-epileptic AgentStart: 98-72-3736nfih 1 tablet by mouth three times dailyGabapentin 800 mg tablet Active 800 MG PO Three times daily April 03, 2025 12:00am Complies withdrug therapyStart: 81-91-4107eaaxboleov 300 mg Cap 300 mg = 1 cap(s), TID, Refills(s) 0 Start Date: 02/22/24 Status: Ordered Repeat number: 1glipiZIDE er 2.5 mg 24 hr extended release oral tablet (20 sources)SulfonylureaStart: 76-18-5540yqgv 1 tablet by mouth once daily glipiZIDE 2.5 mg ER Tab 2.5 mg = 1 tab(s), Oral, Daily, # 90 tab(s), Refills(s) 3, Pharmacy: [facility], 168, cm, 04/09/25 11:43:00 EDT, Height/Length Dosing, 160.8, kg, 04/09/25 11:43:00 EDT, Weight Dosing Start Date: 04/09/25 Status: Ordered Quantity: 90.0 Unit: tab(s) Repeat number: 4Start: 82-04-8316jybj 1 tablet by mouth once dailyglipiZIDE 2.5 mg ER Tab 2.5 mg = 1 tab(s), Oral, Daily, # 90 tab(s), Refills(s) 1, Pharmacy: [facility] #[id number], 168, cm, 11/27/24 14:20:00 EDT, Height/Length Dosing, 159.8, kg, 11/27/24 14:20:00 EDT, Weight Dosing Start Date: 11/27/24 Status: Ordered Quantity: 90.0 Unit: tab(s) Repeat number: 2Start: 14-97-3404kikc 1 tablet by mouth once dailyglipiZIDE 2.5 MG tablet XL Take 1 tablet by mouth daily. 12/20/2023 ActiveStart: 50-98-6158urwj 1 tablet by mouth once dailyglipiZIDE 2.5 mg ER Tab 2.5 mg = 1 tab(s), Oral, Daily, # 90 tab(s), Refills(s) 1, Pharmacy: [facility], 163, cm, 12/30/21 11:09:00 EDT, Height/Length Dosing, 154, kg, 12/30/21 11:09:00 EDT, Weight Dosing Start Date: 12/30/21 Status: OrderedGlucometer (20 sources)Start: 83-01-4300Gfzmvezmjw Glucometer, See Instructions, 1 EA, 0, Glucometer to test BS TID and PRN dx E11.9, [facility], Supply, 170, cm, 05/27/21 8:31:00 EST, Height/Length Dosing, 157.8, kg, 05/27/21 8:31:00 EST, Weight Dosing Start Date: 06/03/21 Status: Ordered Quantity: 1.0 Unit: EA Repeat number:1Start: 18-25-2360Vlnxzhzbdx Glucometer, See Instructions, 1 EA, 0, Glucometer to test BS TID and PRN dx E11.9, [facility], 170, cm, 05/27/21 8:31:00 EST, Height/Length Dosing, 157.8, kg, 05/27/21 8:31:00 EST, Weight Dosing Start Date: 06/03/21 Status: OrderedGlucose (1 source)Start: 73-27-9007Znguiao Kit Glucose Kit, See Instructions, 1 EA, 0, Glucose meter. Include autolet, matching test strips, lancets, & alcohol wipes, #300 or as allowed by insurance; Test TID and PRN. DX: E11.9, [facility] , [facility], 170, cm, 05/27/21 8:31:00 EST, Height... Start Date: 06/03/21 Status: OrderedhydroCHLOROthiazide 50 mg oral tablet (20 sources)Thiazide DiureticStart: 02-36-6552chof 1 tablet by mouth once daily hydrochlorothiazide 50 mg Tab 50 mg = 1 tab(s), Oral, Daily, # 90 tab(s), Refills(s) 1, [facility]acy: [facility] #[id number], 163, cm, 12/30/21 11:09:00 EDT, Height/Length Dosing, 154, kg, 12/30/21 11:09:00 EDT, Weight Dosing Start Date: 04/13/22 Status: OrderedStart: 16-64-9617vmel 1 tablet by mouth once daily hydrochlorothiazide 50 mg Tab 50 mg = 1 tab(s), Oral, Daily, # 30 tab(s), Refills(s) 5, Pharm[facility]: [facility] , 170, cm, 07/28/21 10:34:00 EST, Height/Length Dosing, 152, kg, 07/28/21 10:34:00 EST, Weight Dosing Start Date: 08/03/21 Status: Orderedtake 2 tablets by mouth once dailyhydroCHLOROthiazide (HYDRODIURIL) 25 MG tablet Take 2 tablets by mouth daily 0 Activetake 1 tablet by mouth once dailyhydroCHLOROthiazide (HYDRODIURIL) 25 MG tablet Take 25 mg by mouth daily 0 Activeicosapent ethyl 1000 mg oral capsule (1 source)Start: 80-94-8558Mnglwcl 1 g oral capsule 2 gram = 2 cap(s), Oral, BID, # 120 cap(s), Refills(s) 5, Pharmacy: [facility] [employer] [facility], 170, cm, 05/27/21 8:31:00 EST, Height/Length Dosing, 157.8, kg, 05/27/21 8:31:00 EST, Weight Dosing Start Date: 05/29/21 Status: Orderedloratadine 10 mg oral tablet (20 sources)Start: 73-89-9411fsmf 1 tablet by mouth once daily as needed loratadine 10 mg Tab 10 mg = 1 tab(s), Oral, Daily, PRN as needed for allergy symptoms, # 90 tab(s), Refills(s) 3, Pharmacy: [facility] #[id number], 163, cm, 12/30/21 11:09:00 EDT, Height/Length Dosing, 154, kg, 12/30/21 11:09:00 EDT, Weight Dosing Start Date: 04/13/22 Status: Orderedlosartan potassium 50 mg oral tablet (18 sources)Angiotensin 2 Receptor BlockerStart: 74-61-8322xufx 1 tablet by mouth once dailymeloxicam (7 sources)Nonsteroidal Anti-inflammatory DrugMELOXICAM PO Meloxicam 0 Active metFORMIN hydrochloride 500 mg oral tablet (18 sources)BiguanideStart: 88-98-2222dlui 1 tablet by mouth twice daily at mealtimemetformin 500 mg oral tablet 500 mg = 1 tab(s), Oral, BID, with meals, # 60 tab(s), Refills(s) 2, Pharmacy: [facility], 170, cm, 07/28/21 10:34:00 EST, Height/Length Dosing, 152, kg, 07/28/21 10:34:00 EST, Weight Dosing Start Date: 08/24/21 Status: OrderedmethylPREDNISolone 4 mg oral tablet (1 source)CorticosteroidStart: 04-09-2025 End: 87-30-5641Jorogq 4 mg Tab = 1 packet(s), Oral, As Directed, as directed on package labeling, X 6 day(s), # 21tab(s), Refills(s) 0, Pharmacy: [facility], 168, cm, 04/09/25 11:43:00 EDT, Height/Length Dosing, 160.8, kg, 04/09/25 11:43:00 EDT, Weight Dosing Start Date: 04/09/25 Stop Date: 04/15/25 Status: Ordered Quantity: 21.0 Unit: tab(s) Repeat number: 1montelukast 10 mg oral tablet (20 sources)Leukotriene Receptor AntagonistStart: 95-85-4177maut 1 tablet by mouth once daily in the eveningSingulair 10 mg Tab 10 mg = 1 tab(s), Oral, qPM, # 90 tab(s), Refills(s) 2, Pharmacy: [facility], 168, cm, 04/09/25 11:43:00 EDT, Height/Length Dosing, 160.8, kg, 04/09/25 11:43:00 EDT, Weight Dosing Start Date: 04/09/25 Status: Ordered Quantity: 90.0 Unit: tab(s) Repeat number: 3Start: 47-02-5166pvjh 1 tablet by mouth once daily in the eveningSingulair 10 mg Tab 10 mg = 1 tab(s), Oral, qPM, # 30 tab(s), Refills(s) 2, Pharmacy: [facility], 170, cm, 10/16/19 9:09:00 EDT, Height/Length Measured, 154.3, kg, 10/16/19 9:09:00 EDT, Weight Measured Start Date: 10/16/19 Status: Cgegjzd66 hr nicotine 0.875 mg/hr transdermal system (9 sources)Cholinergic Nicotinic AgonistStart: 01-02-2025 End: 15-51-2040ahajwhfy 21 mg/24 hr Transderm ER Film 1 patch(es), Topical, q24hr for 21 day(s), 21 patch(es), Refill(s) 0, wear only one patch at a time, for 24 hours only, [facility], 168, cm, 01/02/25 13:43:00 EDT, Height/Length Dosing, 159, kg, 01/02/25 13:43:00 EDT, Weight Dosing Start Date: 01/02/25 Stop Date: 01/23/25 Status: Ordered Quantity: 21.0 Unit: patch(es) Repeat number: 1Start: 09-22-2022 End: 97-16-9355zyecgzok 21 mg/24 hr Transderm ER Film 1 patch(es), Topical, Daily for 14 day(s), 14 EA, Refill(s) 0, [facility] #[id number], 167, cm, 09/22/22 8:24:00 EDT, Height/Length Dosing, 157.4, kg, 09/22/22 8:24:00EDT, Weight Dosing Start Date: 09/22/22 Stop Date: 10/06/22 Status: Orderednystatin 100 unt/mg topical powder (3 sources)Polyene AntifungalStart: 52-28-6749rlwbknua Top 100,000 units/g Pwdr 1 beto, Topical, BID, 15 gram, Refill(s) 1, [facility], 168, cm, 01/02/25 13:43:00 EDT, Height/Length Dosing, 159, kg, 01/02/25 13:43:00 EDT, Weight Dosing Start Date: 01/02/25 Status: Ordered Quantity: 15.0 Unit: g Repeat number: 2omeprazole 20 mg delayed release oral capsule (17 sources)Proton Pump Inhibitortake 1 capsule by mouth once dailyomeprazole (PRILOSEC) 20 MG delayed release capsule Take 1 capsule by mouth daily 0 Active pantoprazole 40 mg delayed release oral tablet (20 sources)Proton Pump InhibitorStart: 76-76-8675astf 1 tablet by mouth once dailyPantoprazole [address] Tab 40 mg = 1 tab(s), Oral, Daily, # 90 tab(s), Refills(s) 4, Pharmacy: [facility], 168, cm, 01/02/25 13:43:00 EDT, Height/Length Dosing, 159, kg, 01/02/25 13:43:00 EDT, Weight Dosing Start Date: 01/15/25 Status: Ordered Quantity: 90.0 Unit: tab(s) Repeat number: 5Start: 72-77-1626koca 1 tablet by mouth once dailyPantoprazole [address] Tab 40 mg = 1 tab(s), Oral, Daily, # 90 tab(s), Refills(s) 3, Pharmacy: [facility] #[id number], 167, cm, 02/22/24 13:09:00 EDT, Height/Length Dosing, 137, kg, 02/22/24 13:09:00 EDT, Weight Dosing Start Date: 05/07/24 Status: Ordered Quantity: 90.0 Unit: tab(s) Repeat number: 4rosuvastatin calcium 40 mg oral tablet (20 sources)HMG-CoA Reductase InhibitorStart: 76-56-8839bmyp 1 tablet by mouth once dailyCrestor 40 mg Tab 40 mg = 1 tab(s), Oral, Daily, # 90 tab(s), Refills(s) 3, Pharmacy: [facility], 168, cm, 04/09/25 11:43:00 EDT, Height/Length Dosing, 160.8, kg, 04/09/25 11:43:00 EDT, Weight Dosing Start Date: 04/09/25 Status: Ordered Quantity: 90.0 Unit: tab(s) Repeat number: 4 Ind ications: Mixed hyperlipidemia;Start: 50-21-4908uqbj 1 tablet by mouth once dailyCrestor 40 mg Tab 40 mg = 1 tab(s), Oral, Daily, # 90 tab(s), Refills(s) 3, Pharmacy: [facility] #[id number], 168, cm, 11/27/24 14:20:00 EDT, Height/Length Dosing, 159.8, kg, 11/27/24 14:20:00 EDT, Weight Dosing Start Date: 11/27/24 Status: Ordered Quantity: 90.0 Unit: tab(s) Repeat number: 4 In dications: Mixed hyperlipidemia;Start: 72-56-4269zysw 1 tablet by mouth once dailyCrestor 40 MG tablet Take 1 tablet by mouth daily. 06/05/2024 ActiveStart: 26-81-1123qcno 1 tablet by mouth once dailyCrestor 40 mg Tab 40 mg = 1 tab(s), Oral, Daily, # 90 tab(s), Refills(s) 3, [facility]: [facility] #[id number], 167, cm, 05/09/23 8:15:00 EST, Height/Length Dosing, 145.6, kg, 05/09/23 8:15:00 EST, Weight Dosing Start Date: 06/28/23 Status: OrderedStart: 78-61-0331uzsd 1 tablet by mouth once dailyCrestor 40 mg Tab 40 mg = 1 tab(s), Oral, Daily, # 30 tab(s), Refills(s) 5, Pharmacy: [facility] [place] [address], 163, cm, 12/30/21 11:09:00 EDT, Height/Length Dosing, 154, kg, 12/30/21 11:09:00 EDT, Weight Dosing Start Date: 12/30/21 Status: Orderedsacubitril 24 mg / valsartan 26 mg oral tablet (18 sources)Angiotensin 2 Receptor BlockerStart: 09-29-2022 End: 24-81-6923xtxk 1 tablet by mouth twice dailyENTRESTO 24-26 MG per tablet take 1 tablet by mouth twice a day (STOP LOSARTAN 50MG) 0 11/30/2022 Active0.25 mg, 0.5 mg dose 1.5 ml semaglutide 1.34 mg/ml pen injector (9 sources)Start: 55-39-6274Embmjqzwnow,0.25 or 0.5MG/DOS, 2 MG/1.5ML SOPN Inject 0.25 mg into the skin 0 09/06/2022 Active3 ml sodium chloride 9 mg/ml injection (2 sources)Start: 58-60-7467oondig chloride flush 0.9 % injection 10 mLStart: 51-94-9829kwvqso chloride flush 0.9 % injection 10 mLspironolactone 25 mg oral tablet (20 sources)Aldosterone AntagonistStart: 85-52-1341aiti 1 tablet by mouth once dailyspironolactone 25 mg Tab 25 mg = 1 tab(s), Oral, Daily, # 90 tab(s), Refills(s) 4, Pharmacy: [facility], 168, cm, 01/02/25 13:43:00 EDT, Height/Length Dosing, 159, kg, 01/02/25 13:43:00 EDT, Weight Dosing Start Date: 01/15/25 Status: Ordered Quantity: 90.0 Unit: tab(s) Repeat number:5 Indications: Essential (primary) hypertension;Start: 51-94-9558kfpo 1 tablet by mouth once dailyspironolactone 25 mg Tab 25 mg = 1 tab(s), Oral, Daily, # 90 tab(s), Refills(s) 1, Pharmacy: [facility] #[id number], 168, cm, 06/05/24 13:03:00 EST, Height/Length Dosing, 145.9, kg, 06/05/24 13:03:00 EST, Weight Dosing Start Date: 06/05/24 Status: Ordered Quantity: 90.0 Unit: tab(s) Repeat number: 2 Indications: Essential (primary) hypertension;Start: 12-14-2022 End: 67-52-6968dypq 1 tablet by mouth once dailyspironolactone 25 mg Tab 25 mg = 1 tab(s), Oral, Daily, X 90 day(s), # 90 tab(s), Refills(s) 1, [facility]: [facility] #[id number], 168, cm, 10/11/23 14:32:00 EDT, Height/Length Dosing, 160.2, kg, 10/11/23 14:32:00 EDT, Weight Dosing Start Date: 10/11/23 Stop Date: 04/08/24 Status: OrderedStart: 77-21-8082etlw 1 tablet by mouth twice dailyspironolactone 25 mg Tab 25 mg = 1 tab(s), Oral, BID, # 60 tab(s), Refills(s) 4, [facility]: [facility]#[id number], 163, cm, 09/06/22 11:28:00 EST, Height/Length Dosing, 154, kg, 09/06/22 11:28:00 EST, Weight Dosing Start Date: 09/20/22 Status: OrderedStart: 46-28-5554bmof 1 tablet by mouth twice dailyspironolactone 25 mg Tab 25 mg = 1 tab(s), Oral, BID, # 60 tab(s), Refills(s) 0, [facility]: [facility][id number], 163, cm, 08/20/22 14:05:00 EST, Height/Length Dosing, 155, kg, 08/20/22 14:05:00 EST, Weight Dosing Start Date: 08/23/22 Status: OrderedSymbicort 160/4.5 inhalation aerosol with adapter (5 sources)Start: 74-71-4459Tpelucgup 160/4.5 inhalation aerosol with adapter 2 puff(s), Inhalation, BID, 1 EA, Refill(s) 5, rinse mouth and throat after use, [facility] #[id number], 163, cm, 12/30/21 11:09:00 EDT, Height/Length Dosing, 154, kg, 12/30/21 11:09:00 EDT, Weight Dosing Start Date: 07/23/22 Status: OrderedStart: 58-97-3847mgss 2 puff(s) by inhalation twice dailySymbicort 160/4.5 inhalation aerosol with adapter 2 puff(s), Inhalation, BID, 1 EA, Refill(s) 5, rinse mouth and throat after use, [facility], 170, cm, 07/28/21 10:34:00 EST, Height/Length Dosing, 152, kg, 07/28/21 10:34:00 EST, Weight Dosing Start Date: 10/26/21 Status: Uzvkviq41 actuat tiotropium 0.38699 mg/actuat inhalation spray (20 sources)AnticholinergicStart: 25-16-7719caio 2 puff(s) by inhalation once dailySpiriva Respimat 1.25 mcg/inh inhalation aerosol 2 puff(s), Inhalation, Daily, 3 EA, Refill(s) 3, [facility], 163, cm, 12/30/21 11:09:00 EDT, Height/Length Dosing, 154, kg, 12/30/21 11:09:00 EDT, Weight Dosing Start Date: 12/30/21 Status: Orderedtiotropium (SPIRIVA RESPIMAT) 1.25 MCG/ACT AERS inhaler Inhale 2 puffs into the lungs daily 0 ActivetiZANidine 4 mg oral tablet (20 sources)Central alpha-2 Adrenergic AgonistStart: 18-40-6529lrhk 1 tablet by mouth every eight hours as needed for muscle spasmstiZANidine 4 mg Tab 4 mg = 1 tab(s), Oral, q8hr, PRN Spasm, # 30 tab(s), Refills(s) 0, Pharmacy: [facility] #[id number], 167, cm, 05/09/23 8:15:00 EST, Height/Length Dosing, 145.6, kg, 05/09/23 8:15:00 EST,Weight Dosing Start Date: 05/09/23 Status: OrderedStart: 04-26-2023 take 1 tablet by mouth every eight hours as needed for muscle spasmstiZANidine 4 mg Tab 4 mg = 1 tab(s), Oral, q8hr, PRN Spasm, # 20 tab(s), Refills(s) 0, Pharmacy: [facility] #[id number], 167, cm, 04/26/23 11:10:00 EDT, Height/Length Dosing, 141.8, kg, 04/26/23 11:10:00 EDT, Weight Dosing Start Date: 04/26/23 Status: OrderedtraMADol hydrochloride 50 mg oral tablet (4 sources)Opioid AgonistStart: 39-68-0428orif 1 tablet by mouth every six hours as needed for paintraMADOL 50 mg Tab 50 mg = 1 tab(s), Oral, q6hr, PRN for pain, # 28 tab(s), Refills(s) 0, Pharmacy:[facility] #[id number], 167.6, cm, 12/23/23 10:59:00 EDT, Height/Length Dosing, 136, kg, 12/23/23 10:59:00EDT, Weight Dosing Start Date: 01/09/24 Status: OrderedStart: 94-08-7117tmgx 1 tablet by mouth every six hours as needed for paintraMADOL 50 mg Tab 50 mg = 1 tab(s), Oral, q6hr, PRN for pain, # 28 tab(s), Refills(s) 0, Pharmacy:[facility] #[id number], 168, cm, 11/25/23 14:36:00 EDT, Height/Length Dosing, 141.8, kg, 11/25/23 14:36:00EDT, Weight Dosing Start Date: 11/25/23 Status: OrderedtraZODone hydrochloride 50 mg oral tablet (20 sources)Serotonin Reuptake InhibitorStart: 07-53-2212lcmg 1 tablet by mouth once daily at bedtimetraZODONE 50 mg Tab 50 mg = 1 tab(s), Oral, Once a day (at bedtime), # 30 tab(s), Refills(s) 0, [facility]: [facility] #[id number], 168, cm, 10/11/23 14:32:00 EDT, Height/Length Dosing, 160.2, kg, 10/11/23 14:32:00 EDT, Weight Dosing Start Date: 10/11/23 Status: OrderedStart: 41-77-5465rhyr 1 tablet by mouth once daily at bedtimetraZODONE 50 mg Tab 50 mg = 1 tab(s), Oral, Once a day (at bedtime), # 30 tab(s), Refills(s) 0, [facility]: [facility][id number], 167, cm, 08/10/23 14:24:00 EST, Height/Length Dosing, 151.4, kg, 08/10/23 14:24:00 EST, Weight Dosing Start Date: 08/10/23 Status: OrderedStart: 99-90-1879owyl 2 tablets by mouth once daily at bedtime as neededtraZODONE 150 mg Tab 300 mg = 2 tab(s), Oral, Once a day (at bedtime), PRN Insomnia, # 180 tab(s), Refills(s) 1, Pharmacy: [facility], 170, cm, 10/13/20 9:06:00 EDT, Height/Length Dosing,153.3, kg, 10/13/20 9:06:00 EDT, Weight Dosing Start Date: 10/20/20 Status: Orderedtake 1 tablet by mouth once daily as needed for sleeptraZODone (DESYREL) 150 MG tablet Take 1 tablet by mouth nightly as needed for Sleep 0 Activetake 2 tablets by mouth once dailytraZODone (DESYREL) 150 MG tablet Take 300 mg by mouth nightly 0 ActiveTrulicity 3 MG/0.5ML Solution Auto-injector (1 source)Start: 21-38-5414fjhdga 3 mg by subcutaneous injection every week Trulicity 3 MG/0.5ML Solution Auto-injector Inject 3 mg under the skin once a week. 10/26/2024 Activevarenicline 1 mg oral tablet (16 sources)Partial Cholinergic Nicotinic AgonistStart: 98-97-5544hjgz 1 tablet by mouth twice daily after mealtimevarenicline 1 mg oral tablet 1 mg = 1 tab(s), Oral, BID, after meals, # 60 tab(s), Refills(s) 4, Pharmacy: [facility] #[id number], 167.5, cm, 10/18/22 13:30:00 EDT, Height/Length Dosing, 147, kg, 10/18/22 13 :30:00 EDT, Weight Dosing Start Date: 10/18/22 Status: OrderedStart: 10-18-2022 take 1 tablet by mouth once daily, then take 1 tablet by mouth twice daily, then take 2 tablets by mouth twice dailyvarenicline 0.5 mg oral tablet See Instructions, 1 po daily x3 days then 1 po BID x4 days. Follow this with 1 mg BID prescription varenicline, # 11 tab(s), Refills(s) 0, Pharmacy: [facility] #[id number], 167.5, cm, 10/18/22 13:30:00 EDT, Height/Length Dosing, 147, kg, 10/18/22 13:30:00 EDT, Weight Dosing Start Date: 10/18/22 Status: Ordered Completed/Discontinued Medications MedicationDrug Class(es)DatesSig (Normalized)Sig (Original)Bariatric transfer bench shower chair w/back rest (3 sources)Start: 94-09-3253Iunqwufar transfer bench shower chair w/back rest Bariatric transfer bench shower chair w/back rest, See Instructions, 1 EA, 0, to be used in the shower, Supply Start Date: 01/28/25 Status: Ordered Quantity: 1.0 Unit: EA Repeat number: 1 Indications: Body mass index (BMI) 50.0-59.9, adult; Right heart failure, unspecified; Localized edema;60 actuat budesonide 0.08 mg/actuat / formoterol fumarate 0.0045 mg/actuat metered dose inhaler (20 sources)Corticosteroid, beta2-Adrenergic AgonistStart: 09-11-2019 End: 33-65-4725bhvd 2 puff(s) by inhalation twice dailybudesonide-formoterol (SYMBICORT) 80-4.5 MCG/ACT AERO Inhale 2 puffs into the lungs 2 times daily 1 Inhaler 3 09/11/2019 03/17/2020 Discontinued (LIST CLEANUP)take 2 puff(s) by inhalation twice dailybudesonide-formoterol (SYMBICORT) 160-4.5 MCG/ACT AERO Inhale 2 puffs into the lungs 2 times daily 0 Activefluconazole 150 mg oral tablet (3 sources)Azole AntifungalStart: 26-12-8759Kvgrgktv 150 mg Tab 150 mg = 1 tab(s), Oral, Once, one tablet now and repeat in 72 hours, # 2 tab(s), Refills(s) 0, Pharmacy: [facility], 168, cm, 01/02/25 13:43:00 EDT, Height/LengthDosing, 159, kg, 01/02/25 13:43:00 EDT, Weight Dosing Start Date: 01/02/25 Status: Ordered Quantity: 2.0 Unit: tab(s) Repeat number: 1iohexol (OMNIPAQUE 240) injection 20 mL (1 source)Start: 02-07-2020 End: 28-63-6581huvvetu (OMNIPAQUE 240) injection 20 mLiopamidol (ISOVUE-370) 76 % injection 75 mL (1 source)Start: 02-07-2020 End: 39-06-0709dnlrgqxlc (ISOVUE-370) 76 % injection 75 mLipratropium bromide 0.2 mg/ml inhalation solution (1 source)AnticholinergicStart: 10-14-2022 End: 30-90-6972tsxadiukajk (ATROVENT) 0.02 % nebulizer solution 0.5 mgNebulizer Machine (20 sources)Start: 43-11-1065Qhjytamne Machine Nebulizer Machine, See Instructions, 1 EA, 0, Nebulizer Machine, [facility] #[id number],Supply, 168, cm, 10/11/23 14:32:00 EDT, Height/Length Dosing, 160.2, kg, 10/11/23 14:32:00 EDT, Weight Dosing Start Date: 10/11/23 Status: Ordered Quantity: 1.0 Unit: EA Repeat number: 1 Indications: Moderate persistent asthma, uncomplicated;Start: 34-11-5077Vikmrizyh Machine Nebulizer Machine, See Instructions, 1 EA, 0, Nebulizer Machine, [facility] #[id number],Supply, 168, cm, 10/11/23 14:32:00 EDT, Height/Length Dosing, 160.2, kg, 10/11/23 14:32:00 EDT, Weight Dosing Start Date: 10/11/23 Status: OrderedStart: 53-57-1034Ebbpcgrvg Machine Nebulizer Machine, See Instructions, 1 EA, 0, Nebulizer Machine, [facility], Supply, 170, cm, 10/02/19 13:41:00 EDT, Height/Length Measured, 156, kg, 10/02/19 13:41:00 EDT, Weight Measured Start Date: 10/02/19 Status: Ordered Nebulizer Tubing and Mouthpiece Kit (20 sources)Start: 72-65-9473Skwaucsfr Tubing and Mouthpiece Kit Nebulizer Tubing and Mouthpiece Kit, See Instructions, 1 kit(s), 0, Nebulizer Tubing and Mouthpiece Kit, [facility] #[id number], Supply, 168, cm, 10/11/23 14:32:00 EDT, He ight/Length Dosing, 160.2, kg, 10/11/23 14:32:00 EDT, Weight Dosing Start Date: 10/11/23 Status: Ordered Quantity: 1.0 Unit: kit(s) Repeat number: 1 Indications: Moderate persistent asthma, uncomplicated;Start: 43-77-4573Diyhuyyus Tubing and Mouthpiece Kit Nebulizer Tubing and Mouthpiece Kit, See Instructions, 1 kit(s), 0, Nebulizer Tubing and Mouthpiece Kit, [facility] #[id number], Supply, 168, cm, 10/11/23 14:32:00 EDT, Height/Length Dosing, 160.2, kg, 10/11/23 14:32:00 EDT, Weight Dosing Start Date: 10/11/23 Status: OrderedStart: 44-24-9506Dnpmhfewc Tubing and Mouthpiece Kit Nebulizer Tubing and Mouthpiece Kit, See Instructions, 1 kit(s), 0, Nebulizer Tubing and Mouthpiece Kit, [facility]16, Supply, 170, cm, 10/02/19 13:41:00 EDT, Height/Length Measured, 156, kg, 10/02/19 13:41:00 EDT, Weight Measured Start Date: 10/02/19 Status: Ordered polyethylene glycol 3350 383170 mg / potassium chloride 2970 mg / sodium bicarbonate 6740 mg / sodium chloride 5860 mg / sodium sulfate 52212 mg powder for oral solution (1 source)Osmotic LaxativeStart: 03-17-2020 End: 54-89-5441ftwufnmfvvag glycol (GoLYTELY) solution 4,000 mLStart: 03-17-2020 End: 38-17-3993jwqnyudtbteq glycol (GoLYTELY) solution 4,000 mLpotassium chloride 20 meq extended release oral tablet (20 sources)Start: 72-29-4921qnsk 1 tablet by mouth once dailypotassium chloride 20 mEq ER Tab 20 mEq = 1 tab(s), Oral, Daily, Take with Lasix, # 90 tab(s), Refills(s) 4, Pharmacy: [email or web address], 168, cm, 01/29/25 8:19:00 EDT, Height/Length Dosing,159, kg, 01/24/25 8:55:00 EDT, Weight Dosing Start Date: 01/29/25 Status: Ordered Quantity: 90.0 Unit: tab(s) Repeat number: 5 Indications: Localized edema;Start: 25-66-4690xtsrvraaq chloride (KLOR-CON M) 20 MEQ extended release tabletStart: 06-15-2021 End: 05-23-4498ztum 1 tablet by mouth once dailypotassium chloride 20 mEq ER Tab 20 mEq = 1 tab(s), Oral, Daily, Take with Lasix, # 90 tab(s), Refills(s) 4, Pharmacy: [email or web address], 168, cm, 01/29/25 8:19:00 EDT, Height/Length Dosing,159, kg, 01/24/25 8:55:00 EDT, Weight Dosing Start Date: 01/29/25 Status: Ordered Quantity: 90.0 Unit: tab(s) Repeat number: 5 Indications: Localized edema;predniSONE 10 mg oral tablet (17 sources)Start: 44-66-7619empctnVEBV 10 mg Tab 10 mg = 1 tab(s), Oral, As Directed, 4 tabs for 2 days,3 tabs for 2 days,2 tabs for 2 days,1 tab for 2 days, # 20 tab(s), Refills(s) 0, Pharmacy: [email or web address], 168,cm, 12/27/24 10:40:00 EDT, Height/Length Dosing, 165.6, kg, 12/27/24 10:40:00 EDT, Weight Dosing Start Date: 12/29/24 Status: Ordered Quantity: 20.0 Unit: tab(s) Repeat number: 1 Indications: Chronic obstructive pulmonary disease with (acute) exacerbation;Start: 56-20-2435nvpotfWJZC 20 mg Tab 20 mg = 1 tab(s), Oral, As Directed, Take three tabs by mouth for one day, then two tabs for one day, then one tab for one day, # 6 tab(s), Refills(s) 0, Pharmacy: [id number], 167, cm, 04/26/23 11:10:00 EDT, Height/Length Dosing, 141.8, kg, 04/26/23 11:10:00 EDT, Weight Dosing Start Date: 04/26/23 Status: OrderedStart: 09-16-2022 predniSONE 10 mg Tab See Instructions, take 6 tabs daily x 3days, then 5 tabs daily x 3 days, then 4 tabs daily x 3 days, then 3 tabs daily x 3 days, then 2 tabs daily x 3 days, then 1 tabs daily x 3days., Refills(s) 0 Start Date: 09/16/22 Status: OrderedStart: 38-44-1676Jlntqzgq HFA 90 mcg/inh Aerosol (3 sources)Start: 04-36-5000nhvy 1 dose by inhalation four times dailyVentolin HFA 90 mcg/inh Aerosol 2 puff(s), Inhalation, QID Cough, 1 EA, Refill(s) 1, [facility] #[id number], 163, cm, 12/30/21 11:09:00 EDT, Height/Length Dosing, 154, kg, 06/29/22 11:09:00 EDT, Weight Dosing Start Date: 04/13/22 Status: OrderedStart: 71-63-1307jazx 2 puff(s) by inhalation four times dailyVentolin HFA 90 mcg/inh Aerosol 2 puff(s), Inhalation, QID Cough, 1 EA, Refill(s) 0, [facility], 170, cm, 09/22/20 10:15:00 EDT, Height/Length Dosing, 155.5, kg, 09/22/20 10:15:00 EDT, Weight Dosing Start Date: 09/23/20 Status: OrderedVentolin HFA 90 mcg/inh Aerosol-Adpt (20 sources)Start: 89-34-1611ervz 1 dose by inhalation every six hoursVentolin HFA 90 mcg/inh Aerosol-Adpt 2 puff(s), Inhalation, q6hr for wheezing, 1 EA, Refill(s) 1, [facility] #[id number], 167, cm, 09/29/22 11:37:00 EDT, Height/Length Dosing, 149.2, kg, 09/29/22 11:37:00 EDT, Weight Dosing Start Date: 10/01/22 Status: OrderedStart: 78-98-2445tkeb 2 puff(s) by inhalation every six hours for wheezingVentolin HFA 90 mcg/inh Aerosol-Adpt 2 puff(s), Inhalation, q6hr for wheezing, 18 gram, Refill(s) 1, [facility] #[id number], 163, cm, 12/30/21 11:09:00 EDT, Height/Length Dosing, 154, kg, 12/30/21 11:09:00 EDT, Weight Dosing Start Date: 07/23/22 Status: OrderedVitamin D3 5000 intl units oral capsule (20 sources)Start: 95-57-5851iksl 1 capsule by mouth once daily at mealtime Vitamin D3 5000 intl units oral capsule 5,000 International_Unit = 1 cap(s), Oral, Daily, with food, # 100 cap(s), Refills(s) 1, Pharmacy: [facility] #[id number], 170, cm, 10/13/22 9:06:00 EDT, Height/Length Dosing, 149.2, kg, 09/29/22 11:37:00 EDT, Weight Dosing Start Date: 10/14/22 Status: Ordered Problems Active Problems Problem ClassificationProblemDateDocumented DateEpisodic/ChronicAcute bronchitis (2 sources)Acute bronchitis; Translations: [Acute bronchitis, unspecified]Onset: 51-26-8380EawoatsrQiojnuwdthguys/social admission (1 source)Patient encounter status; Translations: [Persons encountering health services in other specified circumstances]Onset: 58-46-7527PdtmtiplWrzoptd- related disorders (20 sources)Alcohol abuse; Translations: [Alcohol abuse, uncomplicated]Onset: 01-25-8185ZxxtcpaNairqb (20 sources)Uncomplicated moderate persistent asthma; Translations: [Moderate persistent asthma, uncomplicated]Onset: 09-79-8383WxvreogYadynk neoplasm of uterus (20 sources)Uterine aiibuquca39-94-9730NcaeclszQtsoksf obstructive pulmonary disease and bronchiectasis (20 sources)Acute exacerbation of chronic obstructive airways disease; Translations: [Chronic obstructive pulmonary disease with (acute) exacerbation] Onset: 284560-03-2119TavohpdHkykvcj on above:Problem List clean-up per request of Phys. EHR CmteCongestive heart failure; nonhypertensive (20 sources)Right ventricular failure; Translations: [Right heart failure, unspecified]Onset: 45-60-6310EqagavqJlsbjkt on above:Problem List clean-up per request of Phys. EHR CmteDiabetes mellitus with complications (20 sources)Complication due to diabetes mellitus; Translations: [Type 2 diabetes mellitus with other specifiedcomplication]Onset: 73-58-6459Eavggob Diabetes mellitus without complication (14 sources)Type 2 diabetes mellitus; Translations: [Type 2 diabetes mellitus without complications]Onset: 748556-89-5412VcbwbneEkbmmpls mellitus without complication (1 source)Hyperglycemia; Translations: [Elevated blood sugar]EpisodicDisorders of lipid metabolism (20 sources)Hyperlipidemia; Translations: [Mixed hyperlipidemia]Onset: 142874-01-7495DrgxudfHnpbduggdj disorders (20 sources)Gastroesophageal reflux disease; Translations: [Gastroesophageal reflux disease without esophagitis]Onset: 237600-15-1434ShyuljqNoxflvwao hypertension (20 sources)Essential hypertension; Translations: [Essential (primary) hypertension]Onset: 15-89-2785ZpbcpplVutso and electrolyte disorders (20 sources)Hypokalemia; Translations: [Hypokalemia]Onset: 01-63-6062Vjigemhs Gastrointestinal hemorrhage (1 source)Cqyugsfotqsx13-79-8673RkwkrrasQyuggzkatsbpj and screening for infectious disease (2 sources)Vaccination given; Translations: [Encounter for immunization]Onset: 04-65-2723RjdwmmdpCnzoged and fatigue (1 source)Fatigue; Translations: [Other fatigue]EpisodicMiscellaneous mental health disorders (20 sources)Chronic insomnia; Translations: [Psychophysiologic insomnia]Onset: 275378-70-4715QskdcuiOwej disorders (20 sources)Severe major depression, single episode, without psychotic features; Translations: [Major depressive disorder, single episode, severe without psychotic features]Onset: 68-50-0240LkpvelgRojiojh (7 sources)Candidal paronychia ; Translations: [Candidiasis of skin and nail] Onset: 90-35-1053TzcjubjlKkavblbyajz chest pain (6 sources)Chest pain; Translations: [Chest pain, unspecified]59-34-4349Cjlfaqpl Comment on above:Problem List clean-up per request of Phys. EHR CmteNutritional deficiencies (20 sources)Vitamin D deficiency; Translations: [Decreased vitamin D]01-16-2019 ChronicOsteoarthritis (20 sources)Osteoarthritis; Translations: [Unspecified osteoarthritis, unspecified site]Onset: 561567-14-0956MooeoehVhxcgzmslnoqwm (9 sources)Osteoarthritis of left knee joint; Translations: [Degenerative arthritis of left knee]Onset: Other aftercare (4 sources)Long-term current use of drug therapy; Translations: [Other rat exterminator (current) drug therapy]Onset: 94-79-2726BbvhwzbfDsrwg and unspecified benign neoplasm (20 sources)Tubular adenoma of -16-5600RvjabdmyYziwx and unspecified benign neoplasm (14 sources)Polyp of colon; Translations: [Polyp of colon]Onset: 09-06-2022 EpisodicOther and unspecified benign neoplasm (20 sources)History of polyp of colon; Translations: [Personal history of colonic polyps]Onset: 86-68-7050ZrdjdlduIeojd connective tissue disease (20 sources)Artificial knee joint present; Translations: [Presence of left artificial knee joint]Onset: 894852-52-5866GvnfnlsFeubs connective tissue disease (1 source)History of total knee hwkpmwaxykcj60-85-9101QtfngmbXssyd connective tissue disease (1 source)Pain in left lower limb; Translations: [Pain in left leg]Onset: 58-93-6062EmdntomzOmnrm connective tissue disease (1 source)Pain in right lower limb; Translations: [Pain in right leg]Onset: 83-84-9361YosockdpDwyru connective tissue disease (20 sources)Weakness of left hand; Translations: [Other symptoms and signs involving the musculoskeletal system]EpisodicOther connective tissue disease (1 source)Paraparesis; Translations: [Other symptoms and signs involving the musculoskeletal system]EpisodicOther female genital disorders (1 source)Hypertrophy of uterus; Translations: [Hypertrophy of uterus]Episodic Other female genital disorders (1 source)Enlarged msokkh06-83-4345MspudfdlKjbnn gastrointestinal disorders (4 sources)Diarrhea; Translations: [Diarrhea, unspecified]Onset: 07-11-2024 EpisodicOther hereditary and degenerative nervous system conditions (20 sources)Restless mild60-94-7409IpctjhoDjqbk inflammatory condition of skin (20 sources)Granuloma qehpmyzn75-65-9411DcyjfpntTiglw liver diseases (20 sources)Steatosis of liver; Translations: [Fatty (change of) liver, not elsewhere classified]Onset: 839130-51-7490WdnbfrhPpolb liver diseases (20 sources)Elevated liver enzymes giwoz82-25-1005VowlnemoUabjs liver diseases (2 sources)Increased aspartate transaminase level; Translations: [Elevation of levels of liver transaminase levels]Onset: 29-03-7720MzkadicnIpzks liver diseases (20 sources)Large liver; Translations: [Hepatomegaly, not elsewhere classified] Onset: 92-06-9158WjzolnexQxttf lower respiratory disease (10 sources)Dyspnea; Translations: [Shortness of breath]Onset: 11-27-2024 EpisodicComment on above:Problem List clean-up per request of Phys. EHR Cmte Other lower respiratory disease (2 sources)Shortness of breath; Translations: [Shortness of breath]09-10-2022 EpisodicOther lower respiratory disease (1 source)Dyspnea, unspecified; Translations: [Dyspnea, unspecified]Onset: 96-63-1480LjcdgkrlOjndf lower respiratory disease (12 sources)Dyspnea on zherdzbs25-52-1822LrmsspqpCkhkb nervous system disorders (20 sources)Neurogenic tfhrumcnzvmc07-86-7912OsyhezkrUsssc non-traumatic joint disorders (4 sources)Pain in right hip joint; Translations: [Pain in right hip]Onset: 94-82-5563AmbwiwbnPxfqv non-traumatic joint disorders (20 sources)Hip sobz61-17-0371PmrwiqwvEfwbw non-traumatic joint disorders (3 sources)Pain in right hip; Translations: [Pain in right hip]Onset: 08-10-2023 EpisodicOther nutritional; endocrine; and metabolic disorders (20 sources)Morbid obesity; Translations: [Morbid (severe) obesity due to excess calories]Onset: 74-88-0446XqrtpocJbuxd nutritional; endocrine; and metabolic disorders (20 sources)Body mass index 40+ - severely obese; Translations: [Body mass index (BMI) 50.0-59.9, adult]Onset: 64-41-0854UxzfwnmWhbaa nutritional; endocrine; and metabolic disorders (18 sources)Severe tcqowip19-49-6223NnsvvchQvhbw nutritional; endocrine; and metabolic disorders (1 source)Obesity; Translations: [Other obesity due to excess calories]Chronic Other nutritional; endocrine; and metabolic disorders (2 sources)Morbid (severe) obesity due to excess calories; Translations: [Morbid (severe) obesity due to excess calories]Onset: 67-10-3667TqrqyskZlamr nutritional; endocrine; and metabolic disorders (2 sources)Body mass index (BMI) 50.0-59.9, adult; Translations: [Body mass index (BMI) 50.0-59.9, adult]Onset: 50-29-4825HixaywhJpjal screening for suspected conditions (not mental disorders or infectious disease) (12 sources)Screening for malignant neoplasm of colon done; Translations: [Encounter for screening for malignant neoplasm of colon]Onset: 11-26-2022 EpisodicOther skin disorders (20 sources)Multiple skin coip78-28-8034CnbgwrapRjmyx skin disorders (20 sources)Senile kkxfbqugsgpjsz00-90-1336XytzxzxiJnhvtypa codes; unclassified (20 sources)Obstructive sleep apnea syndrome; Translations: [Obstructive sleep apnea (adult) (pediatric)]Onset: 37-65-7674WvwejwsLemektvr codes; unclassified (2 sources)Obstructive sleep apnea (adult) (pediatric); Translations: [Obstructive sleep apnea (adult) (pediatric)]Onset: 89-17-0485OysycvjBxwzmxzn codes; unclassified (3 sources)Preoperative state; Translations: [Pre-operative clearance]Episodic Residual codes; unclassified (2 sources)Tobacco user; Translations: [Tobacco use]EpisodicResidual codes; unclassified (20 sources)Edema of lower frwpcihcm70-86-6242GbqtleisJrruwkes codes; unclassified (1 source)Family history of malignant neoplasm of yfnte92-09-6660Htpwhrwc Residual codes; unclassified (1 source)FH: Stomach xcwogp46-45-6001EcdkmyznBdgmtzoh codes; unclassified (12 sources)Localized edema; Translations: [Localized edema]Onset: 08-20-2022 EpisodicResidual codes; unclassified (1 source)Bilateral lower limb edema; Translations: [Localized edema]Episodic Residual codes; unclassified (9 sources)Current drinker; Translations: [Alcohol use, unspecified, uncomplicated]Onset: 86-05-4361IomvunmsCcbqkzmm codes; unclassified (1 source)Localized edema; Translations: [Localized edema]Onset: 08-24-2023 EpisodicRespiratory failure; insufficiency; arrest (adult) (5 sources)Acute respiratory failure; Translations: [Acute respiratory failure with hypoxia]82-24-8474QjgufkouKvytthp on above:Problem List clean-up per request of Phys. EHR CmteRespiratory failure; insufficiency; arrest (adult) (1 source)Respiratory failure; insufficiency; arrest (adult); Translations: [Acute respiratory failure with hypoxia]Onset: 86-75-5392Xvfe and subcutaneous tissue infections (2 sources)Cellulitis, unspecified; Translations: [Cellulitis]Onset: 12-27-2024 EpisodicSpondylosis; intervertebral disc disorders; other back problems (20 sources)Sciatica; Translations: [Sciatica, unspecified side]Onset: 23-38-0226CacwltwnDrrxijddn-related disorders (20 sources)Nicotine dependence; Translations: [Nicotine dependence, cigarettes, uncomplicated]Onset: 48-65-2791SsccffuSvkeoesxa-related disorders (20 sources)Marijuana user; Translations: [Cannabis misuse]Onset: 08-29-2024 23-11-5049SxxuhtdvLevisnyvxrdn (14 sources)Cancer cervix screening lmcepr48-42-2030Ekhmpilwguef (20 sources)Patient encounter zitqny74-48-6570Rphzfvqhvpjr (20 sources)Finding relating to alcohol drinking aldplfxt26-81-5109Juodgwowspvv (20 sources)Liver function test ngqyfajsy12-51-3027 Past or Other Problems Problem ClassificationProblemDateDocumented DateEpisodic/ChronicAbdominal pain (20 sources)Right lower quadrant pain; Translations: [Nonspecific abdominal pain]Onset: 102391-84-0976XzkbktknYgishovy of mouth; excluding dental (20 sources)Leukedema of tongue; Translations: [Other disturbances of oral epithelium, including tongue]Onset: 235697-79-2528JpktszolXhcjw upper respiratory disease (20 sources)Hoarse; Translations: [Dysphonia]Onset: 842090-55-2101Uvkqbzln Syncope (20 sources)Syncope and collapse; Translations: [Syncope and collapse]Onset: 947034-87-7639Lmqpqpbi Results Test NameValueInterpretationReference RangeFacilityAmbulatory Visit Summaryon 01-46-4357Tgoilftome Visit SummaryAmbulatory Visit Summary CARMEN BLEDSOE :1960 Visit Date:04/09/2025 Ambulatory Visit Instructions Your Diagnosis Moderate persistent asthma Morbid obesity with BMI of 50.0-59.9, adult, Morbid (severe) obesity due to excess calories BMI 50.0-59.9, adult, Body mass index [BMI] 50.0-59.9, adult Your Care Team Attending Physician - Nigel MSN, HEEL COVER SO[employer]ENER-[place] VILLATORO Primary Care Physician - Nigel MSN, HE[employer] C[employer]ILLATORO This Is Your Medications List albuterol (Albuterol (Eqv-Ventolin HFA) 90 mcg/inh inhalation aerosol) albuterol (albuterol 0.083% Inh Rochelle 3 mL) amoxicillin-clavulanate (Augmentin 875 mg-125 mg Tab) fluticasone nasal (Flonase 0.05 mg/inh [place]) glipiZIDE (glipiZIDE 2.5 mg ER Tab) methylPREDNISolone [...] oral tablet) fluoxetine (FLUoxetine 20 mg Cap) fluticasone-salmeterol (Advair HFA 115 mcg-21 mcg/inh inhalation aerosol with adapter) furosemide (furosemide 40 mg Tab) gabapentin (gabapentin 300 mg Cap) pantoprazole (Pantoprazole [address] Tab) potassium chloride (potassium chloride 20 mEq ER Tab) spironolactone (spironolactone 25 mg Tab) Procedures Performed Colonoscopic polypectomy (12/23/2023), Colonoscopy (03/17/2020), Eye/lens implant bilat, Knee replacement, L foot bunion/reconstruction. Discharge Vitals Heart Rate (Peripheral) 84 Respiratory Rate 16 Blood Pressure 126/88 Height 168 cm Height 66 in Weight 160.8 kg Weight 354.503 lb BMI 56.97 What to do next Scheduled Follow-Up Appointments Tuesday 8:00 AM EST With: Where: [facility] Tuesday 9:00 AM EST With: David LEONARD, Rick Gipson Where: Cardiology Clinic Doc You Need to Schedule the Following Appointments Follow Up with Nigel MSN, HEEL COVER SO[employer], [place] Hamilton When: In 3 months Comments: chronic care Where: [address] [place] [phone] Medications What How Much When Why Instructions New amoxicillin-clavulanate (Augmentin 875 mg-125 mg Tab) 1 Tablets By Mouth Every 12 hours Duration: 7 Days Pickup at [facility] #16 New fluticasone nasal (Flonase 0.05 mg/ inh [place]) 2 Sprays Nasal Inhalation Every day each nostrilPickup at [facility] New methylPREDNISolone (Medrol 4 mg Tab) 1 Packets By Mouth As Directed Duration: 6 Days as directed on package labeling Pickup at [facility]16 New montelukast (Singulair 10 mg Tab) 1 Tablets By Mouth Once a day (in the evening) Refills: 2 Pickup at [facility]16 Changed albuterol (Albuterol (Eqv-Ventolin HFA) 90 mcg/ inh inhalation aerosol) 2 Puffs Inhalation Every 6 hours as needed for Shortness of breath or wheezing COPD with acute exacerbation Pickup at [facility] #16 Changed albuterol (albuterol 0.083% Inh Rochelle 3 mL) 3 Milliliter Nebulized inhalation (aerosol) Every6 hours as needed for Shortness of breath or wheezing Moderate persistent asthma Pickup at [facility] #16 Unchanged glipiZIDE (glipiZIDE 2.5 mg ER Tab) 1 Tablets By Mouth Every day Pickup at [facility] #16 Unchanged rosuvastatin (Crestor 40 mg Tab) 1 Tablets By Mouth Every day Mixed hyperlipidemia Pickupat [facility] Unchanged aripiprazole (Abilify 5 mg Tab) [...] prescribing physician if questions or concerns Unchanged fluticasone-salmeterol (Advair HFA 115 mcg-21 mcg/ inh inhalation aerosol with adapter) 2Puffs Inhalation 2 times a day Moderate persistent asthma Contact prescribing physician if questions or concerns Unchanged furosemide (furosemide 40 mg Tab) 1 Tablets By Mouth 2 times a day Peripheral edema (HFpEF) heart failure with preserved ejection fraction Co (more content not included)...[facility] Medicine Office/Clinic Noteon 30-64-8436Oxodpk Medicine Office/Clinic NoteFalyman school for boys Medicine Office/Clinic Note Chief Complaint Patient presents [...] Then she develops this respiratory infection. Taking moqs-rhw-lgqnixh medication to help with the symptoms with no relief. Increased wheezing and difficulty breathing has been noticeable. The patient also has a history of morbid obesity with a BMI of 50.0-59.9. She is considering weightloss surgery as a potential intervention to alleviate [...] breath or wheezing, 100 EA, Refill(s) 1, [facility] #16, 168, cm, 04/09/25 11:43:00 EDT, Height/Length Dosing, 160.8, kg, 04/09/25 11:43:00EDT, Weight Dosing 3. Morbid obesity with BMI of 50.0-59.9, adult (E66.01: Morbid (severe) obesity due to excess calories) Calorie restriction along with routine aerobic exercises discussed in order to avoid hypertension, osteoarthritis, metabolic syndrome and/or worsening of chronic underlying disease states. Encouragedto limit sugary drinks, foods high in sodium, as well as alcohol. 4. BMI 50.0-59.9, adult (Z68.43: Body mass index [BMI] 50.0-59.9, adult) see #3 Orders: albuterol, 2 puff(s), Inhalation, q6hr Shortness of breath or wheezing, 6.7 gm, Refill(s) 1, [facility] #16, 168, cm, 04/09/25 11:43:00 EDT, Height/Length Dosing, 160.8, kg, 04/09/25 11:43:00 EDT, Weight Dosing amoxicillin-clavulanate, 1 tab(s), Oral, q12hr for 7 day(s), 14 tab(s), Refill(s) 0, [facility], 168, cm, 04/09/25 11:43:00 EDT, Height/Length Dosing, 160.8, kg, 04/09/25 11:43:00 EDT, Weight Dosing fluticasone nasal, 2 spray(s), Nasal, Daily, 16 gram, Refill(s) 0, [facility] nostril[facility] (more content not included)...[facility] SystemComment on above:Result Comment: Electronically Signed By: Nigel SMITH, HEEL COVER SO[employer], [place]\.br\Date and Time Signed: 04/09/25 12:15 EDTHeart and Vascular Office/Clinic Noteon 89-58-7989Lkwra and Vascular Office/Clinic Note [facility] Office/Clinic Note Chief Complaint 6 week F/U History of Present Illness Patient is a 64-year-old female with past medical history of hypertension, cigarette smoking, GERD,HFpEF, history of alcohol abuse, hyperlipidemia, asthma, BRENDA, [...] been successful for her. She reports that sheis not swelling much up at all right now and is tolerating the Lasix well. Patient has no further cellulitis or discoloration to her lower extremities since last visit. No pain to lower extremities at all either. Patient is still compliant with Jardiance and spironolactone as well for heart/swelling. Patient still does complain of shortness of breath. Patient reports that she still having about thesame shortness of breath that she 2 at last visit. She reports that pretty much any activity causesher to be short of breath. However, patient [...] 10/2022. Patient denies chest pain, heart palpitations, dizziness/lightheadedness. REVIEWED PRIOR NOTE FROM 01/29/2025 Patient comes [...] not followed up with PCP yet about furthermanagement of shortness of breath. She reports that shortness of breath is not much change at all since last visit. Patient denies chest pain, heart palpitations, dizziness/lightheadedness. Review of Systems PHQ Score Initial Depression [...] distribution. Overall, no jayme (more content not included)...[facility]Comment [facility]:Result Comment: Electronically Signed By: Rick Hernandez PA-C\elsie\Date and Time Signed: 03/12/25 13:37 EDT Ambulatory Visit Summaryon 18-42-3042Pffvahokhp Visit SummaryAmbulatory Visit Summary CARMEN BLEDSOE :1960 Visit Date:02/04/2025 Ambulatory Visit Instructions Your Diagnosis Moderate persistent asthma Type 2 diabetes mellitus with morbid obesity Morbid obesity with BMI of 50.0-59.9, adult, Morbid (severe) obesity due to excess calories BMI 50.0-59.9, adult, Body mass index [BMI] 50.0-59.9, adult Cigarette smoker Your Care Team Attending Physician - Nigel SMITH, HE[employer] [employer] Primary Care Physician - Nigel SMITH, HE[employer]OVER [employer] [employer]ILL[employer]O This Is Your Medications List buPROPion [...] oral tablet) fluoxetine (FLUoxetine 20 mg Cap) fluticasone-salmeterol (Advair HFA 115 mcg-21 mcg/inh inhalation aerosol [...] implant bilat, Knee replacement, L foot bunion/reconstruction. Discharge Vitals Heart Rate (Peripheral) 78 Respiratory Rate 18 Blood Pressure 132/76 Height 168 cm Height 66 in Weight 155.1 kg Weight 341.937 lb BMI 54.95 What to do next Scheduled Follow-Up Appointments Tuesday 1:00 PM EDT With: Nigel SMITH, HE[employer] COVER [employer] VILLATORO Where: [facility] [place] [address] [place] [address]- Tuesday 1:15 PM EDT With: Rick Hernandez PA-C Where: [facility] [place] You Need to Schedule the Following Appointments Follow Up with Nigel SMITH, DARLEEN-[place] VILLATORO When: In 1 month Comments: weight loss, initial 40 min Where: [address] [place] [phone] Medications What How Much When Why Instructions New buPROPion (buPROPion 150 mg/ 24 hours XL Tab) 1 Tablets By Mouth Every 24 hours Pickup at [facility]16 Unchanged albuterol (Albuterol (Eqv-Ventolin HFA) 90 [...] prescribing physician if questions or concerns Unchanged fluticasone-salmeterol (Advair HFA 115 mcg-21 mcg/ inh inhalation aerosol with adapter) 2Puffs Inhalation 2 times a day Moderate persistent asthma Contact prescribing physician if questions or concerns Unchanged furosemide (furosemide 40 mg Tab) 1 Tablets By Mouth 2 times a day Peripheral edema (HFpEF) heart failure with preserved ejection fraction Contact prescribing physician if questions or concerns Unchanged gabapentin (gabapentin 300 mg Cap) 1 Capsules 3 times a day Contact prescribing physicianif questions or concerns Unchanged glipiZIDE (glipiZIDE 2.5 mg ER Tab) 1 Tablets By Mouth Every day Contact prescribing physician if questions or concerns Unchanged Misc Prescription (Alcohol wipes) See instructions Use to check BS daily dx E11.9 Contactprescribing physician if questions or concerns Unchanged Misc Prescription (Bariatric transfer bench shower chair w/ back rest) See instructions Right heart failure, unspecified Bilateral leg edema BMI 50.0- 59.9, adult to be used in the shower [...] See instructions Moderate pe (more content not included)...[facility] Medicine Office/Clinic Noteon 36-59-8236Djsiyn Medicine Office/Clinic NoteFalyman school for boys Medicine Office/Clinic Note Chief Complaint The patient [...] asthma symptoms with Advair, although wheezing persists butdoes not become short of breath. The patient [...] has noticed an improvement in the symptoms. Breathinghas become easier without any shortness of breath. [...] and/or worsening of chronic underlying disease states. Encouragedto limit sugary drinks, foods high in sodium, [...] her to explore on the Internet and YouTubefor chair exercises to start initiating. Ordered: Most recent diastolic blood pressure <80 mm Hg 3078F Systolic BP 130-139 mm Hg (Most Recent) 3075F 5. Cigarette smoker (F17.210: Nicotine dependence, cigarettes, uncomplicated) (more content not included)...[facility] SystemComment on above: Result Comment: Electronically Signed By: Nigel SMITH, SRINIVAS, Paris Hamilton\.br\Date and Time Signed: 02/04/25 15:13 EDTAmbulatory Visit Summaryon [id number] Visit SummaryAmbulatory Visit Summary CARMEN BLEDSOE :1960 Visit Date:01/29/2025 Ambulatory Visit Instructions Your Diagnosis Heart failure with preserved ejection fraction Benign hypertension Mixed hyperlipidemia Your Care Team Attending Physician - Rick Hernandez PA-C Primary Care Physician - Nigel SMITH, Paris ESPINO Referring Physician - NONE, XXXX This [...] implant bilat, Knee replacement, L foot bunion/reconstruction. Discharge Vitals Heart Rate (Peripheral) 6 Respiratory Rate 20 Blood Pressure 140/80 Height 168 cm Height 66 in What to do next Scheduled Follow-Up Appointments Tuesday 1:40 PM EDT With: Nigel MSN, HEEL COVER SOFTENER-DRAPERY HEMMER [employer], Paris Hamilton Where: [facility] Medicine [place] [address] [place] [address]- Tuesday 1:15 PM EDT With: David LEONARD, Rick Gipson Where: Cardiology Clinic Doc Medications What How Much When Why Instructions Unchanged albuterol (Albuterol (Eqv-Ventolin HFA) 90 mcg/ inh inhalation aerosol) 2 Puffs Inhalation Every 6 hours as needed for Shortness of breath or wheezing COPD with acute exacerbation Unchanged aripiprazole (Abilify 5 mg Tab) 1 Tablets By Mouth Every day Unchanged azithromycin (azithromycin 250 mg Tab) 1 Packets By Mouth As Directed Duration: 5 Days asdirected on package labeling Unchanged dulaglutide (Trulicity Pen 3 mg/ 0.5 mL subcutaneous solution) See instructions ADMINISTER 3 MG UNDER THE SKIN EVERY WEEK Unchanged empagliflozin (Jardiance 10 mg oral tablet) 10 Milligram By Mouth Every day Unchanged fluconazole (Diflucan 150 mg Tab) 1 Tablets By Mouth Once one tablet now and repeat in 72hours Unchanged fluoxetine (FLUoxetine 20 mg Cap) 2 [...] heart failure, unspecified Bilateral leg edema BMI 50.0- 59.9, adult to be used in the shower [...] 100,000 units/ mL Oral Susp) 5 Milliliter Oral- Swish &Swallow 4 times a day Duration: 14 [...] mg Tab) 1 (more content not included)... [facility]/Clinic Noteon [id number] and Vascular Office/Clinic NoteHeart and Vascular Office/Clinic Note Chief Complaint 4 week F/U History of Present Illness Patient is a 64-year-old female with past medical history of hypertension, cigarette smoking, GERD,HFpEF, history of alcohol abuse, hyperlipidemia, asthma, BRENDA, [...] not followed up with PCP yet about furthermanagement of shortness of breath. She reports that shortness of breath is not much change at all since last visit. Patient denies chest pain, heart palpitations, dizziness/lightheadedness. REVIEWED PRIOR NOTE FROM 01/01/2025: Patient comes [...] increased to 40 mg twice daily upon discharge.Patient is also taking Jardiance, spironolactone to help [...] breathing has improved as well. She states thatshe still is having some shortness of breath, [...] test. Patient denies chest pain, heart palpitations, dizziness/lightheadedness. Review of Systems PHQ Score Initial Depression [...] preserved ejection fraction (I50.30: Unspecified diastolic (congestive) heartfailure) Patient has history of per (more content not included)...[facility] Health SystemComment on above:Result Comment: Electronically Signed By: David LEONARD, Rick Gipson\elsie\Date and Time Signed: 01/29/25 10:10 [facility]TPOhio[facility] [id number] [facility]al [facility] Case Information Case Priority: None Programs: -- Referral Source: Shipwright Helper Referral Reason: Care coordination Case Type: Transition Care Management Risk Score: -- Case Status: Enrolled (December 31, 2024) Date Assigned: December 31, 2024 Assigned By: Gracy Maxwell R.N. Date Enrolled: December 31, 2024 Assigned Primary Personnel: Gracy Maxwell R.N. Assigned Secondary Personnel: -- Case Physician: Nigel MSN, HEEL COVER SOFTENER-DRAPERY HEMMER [employer], Paris Hamilton Problems Ongoing Alcohol abuse, in remission [...] implant bilat, Knee replacement, L foot bunion/reconstruction. Home Medications Abilify 5 mg Tab, 5 [...] See Instructions nystatin 100,000 units/mL Oral Susp, 832262 unit(s)= 5 mL, Oral-Swish&Swallow, QID nystatin Top [...] average. 16.00 drinks/episode maximum. Started age 18 Years.Stopped age 61 Years. Previous treatment: Inpatient. Alcohol [...] and Assessments 12/31/24 09:55: (more content not included)...[facility] BNPon 79-48-1273Xlu Ctr BNPPassNormalWooster Community HospitalComment on above:Performed By: #### [id number] #### [facility] [address], [place] [address]Vramozswfhg peptide B (Bld) [Mass/Vol]20 pg/mLNormal5-80[facility] HospitalComment on above:Performed By: #### [id number] #### [facility] [address], [place] [address]CNK w/ Auto Diffon 71-92-8313Ppiindwr Absolute0.2 E9/LNormal 0.0-0.2Fisher [facility] HospitalComment on above:Performed By: #### [id number] #### [facility] [address], [place] [address]Ilgnygzxw/100 WBC (Bld)3.1 %High0.0-2.0[facility] HospitalComment on above:Performed By: #### [id number] #### [facility] [address], [place] [address]Btm Absolute0.1 E9/LNormal0.0-0.5FWilson Memorial Hospital Comment on above:Performed By: #### [id number] #### [facility] [address], [place] [address]Fnrmddzhstg/100 WBC (Bld)2.7 %Normal0.0-8.0[facility] HospitalComment on above:Performed By: #### [id number] #### [facility] [address], [place] [address]Phhcfpxdqfb distribution width (RBC) [Ratio]15.8 %High10.9-14.2 [facility] HospitalComment on above:Performed By: #### [id number] #### [facility] [address], [place] [address]Mmjukytaxr (Bld) [Volume fraction]38.3 %Myruoq88.0-46.0[facility] HospitalComment on above:Performed By: #### [id number] #### [facility] [address], [place] [address]Iprzjcstsy (Bld) [Mass/Vol]13.0 g/yHAdstba07.0-16.0[facility] HospitalComment on above:Performed By: #### [id number] #### [facility] [address], [place] [address]Jfrwu Absolute0.8 E9/LLow1.0-4.0[facility] Comment on above:Performed By: #### [id number] #### [facility] [address], [place] [address]Scnkqyunhac/100 WBC (Bld)15.4 %Ygpixe21.0-50.0[facility] HospitalComment on above:Performed By: #### [id number] #### [facility] [address], [place] [address]PCL (RBC) [Entitic mass]31.3 joVcolob21.0-34.0[facility] HospitalComment on above:Performed By: #### [id number] #### [facility] [address] [place] [address]NHDM (RBC) [Mass/Vol]33.9 g/gROtztjm81.4-36.0[facility] HospitalComment on above:Performed By: #### [id number] #### [facility] [address] [place] [address]XEL (RBC) [Entitic vol]92.2 xSAzomhr08.0-100.0[facility] HospitalComment on above:Performed By: #### [id number] #### [facility] [address] [place] [address]Rubt Absolute0.4 E9/LNormal0.2-1.0[facility] Comment on above:Performed By: #### [id number] #### [facility] [address] [place] [address]Wlzkfzhwp/100 WBC (Bld)7.3 %Normal4.0-14.0[facility] HospitalComment on above:Performed By: #### [id number] #### [facility] [address] [place] [address]Gmwaeu Absolute3.6 E9/LNormal2.0-7.5FWilson [facility] Hospital Comment on above:Performed By: #### [id number] #### [facility] [address] [place] [address]Qzgmri Auto71.5 %Yapbsr70.0-75.0[facility] Comment on above:Performed By: #### [id number] #### [facility] [address] [place] [address]Ycntthpk368.0 E9/KVxaimn005.0-500.0[facility] Comment on above:Performed By: #### [id number] #### [facility] [address] [place] [address]Rdragdev mean volume (Bld) [Entitic vol]7.2 fLNormal6.4-10.8 [facility] HospitalComment on above:Performed By: #### [id number] #### [facility] [address] [place] [address]GVE2.2 E12/LLow4.3-5.9[facility] HospitalComment on above:Performed By: #### [id number] #### [facility] [address] [place] [address]PGT9.0 E9/LNormal4.0-11.0[facility] HospitalComment on above:Performed By: #### [id number] #### [facility] [address] [place] [address]QPQen 35-09-5332Mhgzjut [Mass/Vol]4.3 g/dLNormal3.3-5.0[facility] HospitalComment on above:Performed By: #### [id number] #### [facility] [address] [place] [address]Mxflxhn/Globulin [Mass ratio]1.5 {ratio}Normal1.1-2.2FWilson Memorial HospitalComment on above:Performed By: #### [id number] #### [facility] [address] [place] [address]Tvv Phos61 Int._Unit/NDofunr05-44YcztpcWooster Community Hospital Comment on above:Performed By: #### [id number] #### [facility] [address] [place] [address]FNB49 Int._Unit/LNormal6-46[facility] HospitalComment on above:Performed By: #### [id number] #### [facility] [address], [place] [address]Ehumx gap [Moles/Vol]10 mmol/LNormal6-16[facility] HospitalComment on above:Performed By: #### [id number] #### [facility] [address] [place] [address]EQD93 Int._Unit/LNormal5-43[facility] HospitalComment on above:Performed By: #### [id number] #### [facility] [address], [place] [address]Khrw Total0.4 mg/dLNormal0.0-1.1FWilson [facility] Hospital Comment on above:Performed By: #### [id number] #### [facility] [address], [place] [address]RFR/Creat Ratio20 No XnnueYchaic37-41ArufdsWooster Community HospitalComment on above:Performed By: #### [id number] #### [facility] [address], [place] [address]Hcnjnxi [Mass/Vol]9.3 mg/dLNormal8.9-11.1FWilson Memorial HospitalComment on above:Performed By: #### [id number] #### [facility] [address], [place] [address]Uhnhqhuw [Moles/Vol]100 mmol/EZdn511-677LyqysjWooster Community HospitalComment on above:Performed By: #### [id number] #### [facility] [address], [place] [address]QF2 [Moles/Vol]33 mmol/NJxxx41-25MbvonuWooster Community Hospital Comment on above:Performed By: #### [id number] #### [facility] [address], [place] [address]Ttxafczgsq [Mass/Vol]0.8 mg/dLNormal0.5-1.3FWilson Memorial HospitalComment on above:Performed By: #### [id number] #### [facility] [address], [place] [address]Bntglcgu (S) [Mass/Vol]2.9 g/dLNormal1.4-4.0[facility] HospitalComment on above:Performed By: #### [id number] #### [facility] [address], [place] [address]Eaavafg [Mass/Vol]114 mg/fPDxowjg75-777ZzcyhbWooster Community HospitalComment on above:Performed By: #### [id number] #### [facility] [address], [place] [address]Rmmewnvqd [Moles/Vol]3.7 mmol/LNormal3.5-5.3FWilson Memorial HospitalComment on above:Performed By: #### [id number] #### [facility] [address], [place] [address]Gwpkevs [Mass/Vol]7.2 g/dLNormal6.0-7.8[facility] HospitalComment on above:Performed By: #### [id number] #### [facility] [address], [place] [address]Dfyife [Moles/Vol]139 mmol/QUbuits850-583VrqcnjWooster Community HospitalComment on above:Performed By: #### [id number] #### [facility] [address], [place] [address]Nhqa nitrogen [Mass/Vol]16 mg/dLNormal5-21[facility] HospitalComment on above:Performed By: #### [id number] #### [facility] [address] [place] [address]QJ Abdomen/Pelvis w/ Contraston 29-99-5134LW Abdomen/Pelvis w/ ContrastExam Date/Time: 01/24/2025 11:09 EDT Reason for Exam: [...] aneurysm or dissection. Mild calcified atherosclerotic plaquing. Mesentery/peritoneum/retroperitoneum: No ascites, organized fluid collection, inflammatory changes, [...] Byron Grider MD Transcribed by: KARSTEN Technologist: Chava [facility] CenterED Clinical Summaryon [id number] Clinical SummaryED Clinical Summary [place] [address] ED Clinical Summary Person Information Name: CARMEN BLEDSOE/[facility] Age: 64 Years : 1960 Sex: Female Language: Gabonese PCP: Nigel MSN, HEEL COVER SOFTENER-DRAPERY HEMMER [employer], Paris Hamilton Marital Status: Single Visit Id: Visit Reason: Hip pain-swelling; Ear laceration; Multiple falls; FALL - LT HIP PAIN, LAC ON LT EAR,NO THINNERS Speciality: Acuity: 3 Enc Type: Emergency [...] 01/24/2025 13:34:37 01/24/2025 13:34:37 01/24/2025 13:34:37 ADDRESS: [address] [place] [address] [place] [id number] [facility] DOC NOTES: MEDICAL INFORMATION: Prescriptions Given: New Medications [facility] [address], [address], [place] [id number], [phone] acetaminophen-hydrocodone (Bowman 325 mg-5 mg oral tablet) 1 Tablets [...] BS daily. Refills: 3. (more content not included)...NormalFisher [facility]ilango Medical CenterED Note-Physician on [id number] Note-PhysicianED Note-Physician Basic Information Time Seen: Lui Christiansen PA-C. 01/24/2025 08:52 Chief Complaint PT REPORTS 4 FALLS THIS PAST WEEK, STATES HAD BACK INJECTIONS FOR PAIN A WEEK AGO. STATES LAST FALLYESTERDAY AND HAS L HIP PAIN AND CUT [...] ear but did not hit her head, loseconsciousness and she is not on any blood [...] other associated symptoms no other prior treatments orcomplaints. Family: Reviewed and noncontributory Social: lives at [...] or rigidity noted. Neurological: A&O, normal equal childbirth educator strength, normal speech, normal coordination, normal motor, normal sensory. Psychiatric: Cooperative Procedure Wound closure with glue- 2 cm nongaping laceration noted to the superior aspect of the left auricleof the left ear. I thoroughly irrigated the wound with copious amounts of normal saline. The laceration was inspected for evidence of foreign body. Given the superficial component of the laceration closure with suture was not necessary. Skin glue was placed superficially over top of the superficiallaceration in order to help close the wound. [...] auricle of the ear. Wound was closed wi th skin glue (please see above procedure note). [...] the abdomen and p (more content not included)...Normal [facility] HospitalComment on above:Result Comment: Electronically Signed By: Lui Christiansen PA-C\.br\Date and Time Signed: 01/25/2516:12 EDT\.br\Electronically Co-Signed By: Oneal Newman DO\.br\Date and Time Co-Signed: 01/24/25 19:04 EDTED Patient Summaryon [id number] Patient SummaryED Patient Summary [place] [address] Patient Discharge Instructions Person Information Name: CARMEN BLEDSOE Age: 64 Years Arrival Date: 01/24/2025 08:46:49 Discharge Diagnosis: COPD exacerbation; Laceration of left ear; Left hip pain; Low back pain; Multiple falls; Oral thrush; Osteoarthritis of hip; Shortness of breath Primary Care Physician: Nigel MSN, HEEL COVER SOFTENER-DRAPERY HEMMER [employer], Paris Hamilton Provider Information Primary Provider: Advanced Battery Filler:Lui Christiansen PA-C The exam and treatment you received in the Emergency Department were for an urgent problem and are not intended as complete care. It is important that you follow up with a doctor, nurse practitioner,or physician???s store administrative assistant for ongoing care. If your symptoms become worse or you do not improve asexpected and you are unable to reach your usual health care provider, you should return to the Emergency Department. We are available 24 hours a day. CARMEN BLEDSOE has been given the following list of patient education materials, prescriptions and follow-up instructions: Follow-up Instructions: With: Address: When: [place] Rust [address] [place], [place] [id number] [phone] [employer] (1) In 3 days 01/27/2025 Comments: Please call primary care office for close outpatient follow-up regarding thrush, back and hip pain,COPD exacerbation. Take medication as prescribed. Return to ED if symptoms worsen or new symptoms arise. Please ambulate with assistance at home to prevent further falls. Return to ED if you have another fall. With: Address: When: [facility] [address] [place] [address] [phone] [employer] (1) In 3 days 01/27/2025 Comments: Please [...] opioids can be used to help relieve qlxqvmyc-ok-rjetlt pain and are often prescribed following a [...] up with your prima (more content not included)...NormalWooster Community HospitalPT & PTTon 28-26-6765MRM Coag (PPP) [Relative time]1.00 {INR} Invalid Interpretation [facility] HospitalComment on above:Result Comment: INR results are specifically intended to assess patients stabilized on long-term Anticoagulation therapy suggested INR???s ???Less Intensive Anticoagulation??? 2.0 ??? 3.0 Conventional Range 3.0 ??? 4.5Performed By: #### [id number] #### [facility] [address] [place], [place] [address]DR52.2 second(s)Normal9.4-12.5[facility] Comment on above:Result Comment: 15 days - 4 weeks 1 - [...] the same coagulation reagent and instrumentation as [facility]. Currently there are no coagulation studies available worldwide for children to 14 days, andno normal ranges.Performed By: #### [id number] #### [facility] [address], [place] [address]BCQ23.6 second(s)Qyeuir51.1-36.5FWilson Memorial Hospital Comment on above:Result Comment: Parameter 15 days - 4 weeks 1 - [...] the same coagulation reagent and instrumentation as [facility]. Currently there are no coagulation studies available worldwide for children to 14 days, andno normal ranges. Heparin therapeutic range (represented by Anti-Factor Xa activity of 0.2 - 0.4 U/mL) corresponds to PTT of 56.6 - 109.0 sec.Performed By: #### [id number] #### [facility] [address], [place] [address]Ijeornnk 0 Hr.on 41-72-0652Qxoewltf HS4.50 pg/mLLow10.10-27.10 [facility] HospitalComment on above:Result Comment: The 95% CI (Confidence Interval) PPV (Positive Predictive Value) for myocardial infarction in females is 38 pg/mL, in males 51 pg/mL. The results should be used in conjunction with clinical conditions of myocardial infarction. (Access High Sensitivity Troponin I Instructions For Use, [employer], February 2018)Performed By: #### [id number] #### [facility] [address] [place], [place] [address]Troponin 1 Hr.on 88-54-6726Rmykoddz HS3.90 pg/mLLow10.10-27.10 [facility] HospitalComment on above:Result Comment: The 95% CI (Confidence Interval) PPV (Positive Predictive Value) for myocardial infarction in females is 38 pg/mL, in males 51 pg/mL. The results should be used in conjunction with clinical conditions of myocardial infarction. (Access High Sensitivity Troponin I Instructions For Use, [employer], February 2018)Performed By: #### [id number] #### [facility] [address] [place], [place] [address]UA with Cult Rflxon 81-47-9906Grtft (U)ColorlessAbnormalYellow [facility] HospitalComment on above:Result Comment: Microscopic readings are only performed on those samples that meet specific criteria set forth by [facility].Performed By: #### [id number] #### [facility] [address], [place] [address]Wwidaos Ql (U)NegativeNormalNegativeWooster Community Hospital Comment on above:Performed By: #### [id number] #### [facility] [address], [place] [address]CK BloodNegativeNormalNegativeWooster Community Hospital Comment on above:Performed By: #### [id number] #### [facility] [address], [place] [address]IM ClarityClearNormalClearWooster Community HospitalComment on above:Performed By: #### [id number] #### [facility] [address], [place] [address]AY Glucose3+ mg/dLAbMercer County Community Hospital Comment on above:Performed By: #### [id number] #### [facility] [address], [place] [address]AO Leuk EstNegativeNormprNegAshtabula General Hospital Comment on above:Performed By: #### [id number] #### [facility] [address] [place] [address]XY NitriteNegativeNormalDiley Ridge Medical Center Comment on above:Performed By: #### [id number] #### [facility] [address], [place] [address]KG pH5.0Invalid Interpretation Code5.0-9.0[facility] HospitalComment on above:Performed By: #### [id number] #### [facility] [address] [place] [address]JL ProteinNegativeNoAdams County Regional Medical Center Comment on above:Performed By: #### [id number] #### [facility] [address] [place] [address]GX Spec Grav1.016Invalid Interpretation Code1.005-1.030[facility] HospitalComment on above:Performed By: #### [id number] #### [facility] [address], [place] [address]IH UrobilinogenNegativeNormalDiley Ridge Medical CenterComment on above:Performed By: #### [id number] #### [facility] [address], [place] [address]Mfqkrpowvdtp (U) [Mass/Vol]NegativeNormalNegAshtabula General HospitalComment on above:Performed By: #### [id number] #### [facility] [address], [place] [address]LI Spec DescClean CatchHolzer Health SystemComment on above:Performed By: #### [id number] #### [facility] [address] [place], [place] [address]BT Lower Extremity Venous Duplex Lefton 63-17-1946OC Lower Extremity Venous Duplex LeftExam Date/Time: 01/24/2025 13:05 EDT Reason for Exam: [...] Byron Grider MD Transcribed by: KARSTEN Technologist: CARYNHolzer Health SystemXR Chest Single Viewon [id number] Chest Single ViewExam Date/Time: 01/24/2025 09:47 EDT Reason for Exam: [...] Braxton Norris DO Transcribed by: KARSTEN Technologist: BaltaWooster Community HospitalXR Hip 2-3 Views Left + Pelvison [id number] Hip 2-3 Views Left + PelvisExam Date/Time: 01/24/2025 09:47 EDT Reason for Exam: [...] Braxton Norris DO Transcribed by: KARSTEN Technologist: DPRHolzer Health SystemeGFRon [id number] mL/min/1.73 y0Tgvwrc>=59W[facility] HospitalComment on above:Performed By: #### [id number] #### [facility] [address], [place] [address]Iblmykcgdqh 19-36-7387RdguaoszhVlnjgotvr From: Gracy Maxwell R.N. To: [facility] Glove Examiner; Gracy Maxwell R.N.; Sent: 01/21/2025 12:29:37 EDT Show up: 01/21/2025 12:29:00 EDT Subject: tcm #2 final Due Date/Time: 01/28/2025 12:29:00 EDT Reminder/RecallHolzer Health SystemPulmonary Function Studieson 05-05-4651Cztnmrduq Function StudiesPulmonary Function Studies PULMONARY FUNCTION TEST: 01/07/2025 REQUESTING PROVIDER: CARLO Atkinson REASON FOR TESTING: Moderate persistent asthma. Spirometry results are acceptable and reproducible. The FVC was 2.06 liters or 65% of predicted. FEV1 was 1.45 liters or 58% of predicted with a ratio of 71%. There was significant improvement in theFEV1 with the administration of bronchodilators of 15% from baseline. Lung volumes showed a total lung capacity of 84% of predicted, residual volume of 131% of predictedwith a ratio of 55%. Diffusion capacity for carbon monoxide was 88% of predicted and when adjusted to alveolar volume at120% of predicted. 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 There was a good response in the FEV1 to bronchodilator therapy. READ BY: Javier Hall M.D. ca Dictated: 01/12/2025 [id number] Transcribed: 01/15/2025 cc:SAMUEL AtkinsonBlanchard Valley Health System Bluffton HospitalComment on above: Result Comment: Electronically Signed By: Isabel SAMPSON, Javier Fernandes\.br\Date and Time Signed: 01/16/25 10:16 EDTAmbulatory Visit Summaryon [id number] Visit SummaryAmbulatory Visit Summary CARMEN BLEDSOE :1960 Visit Date:01/02/2025 Ambulatory Visit Instructions Your Diagnosis Heart failure with preserved ejection fraction Obstructive sleep apnea Type 2 diabetes mellitus with morbid obesity Cigarette smoker Morbid obesity with BMI of 50.0-59.9, adult, Morbid (severe) obesity due to excess calories Your Care Team Attending Physician - Nigel SMITH, Paris ESPINO Primary Care Physician - Nigel SMITH, Paris ESPINO This Is Your Medications List nicotine [...] implant bilat, Knee replacement, L foot bunion/reconstruction. Discharge Vitals Heart Rate (Peripheral) 78 Respiratory Rate 18 Blood Pressure 140/102 Height 168 cm Height 66 in Weight 159 kg Weight 350.535 lb BMI 56.34 What to do next Scheduled Follow-Up Appointments Tuesday 12:30 PM EDT With: Where: Cardiovascular Services Tuesday 1:40 PM EDT With: Nigel SMITH, Paris ESPINO Where: [facility] [address] [place] [address]- You Need to Schedule the Following Appointments Follow Up with Nigel SMITH, SRINIVAS, Paris Hamilton When: In 1 month Where: [address] [place] [phone] Medications What How Much When Why Instructions New nicotine (nicotine 21 mg/ 24 hr Transderm ER Film) 1 Patches Topical Every 24 hours Duration: 21 Days wear only one patch at a time, for 24 hours only Pickup at [facility] Unchanged albuterol (Albuterol (Eqv-Ventolin HFA) 90 [...] Capsules 3 times a day Contact prescribing physicianif questions or concerns Unchanged glipiZIDE (glipiZIDE 2.5 mg ER Tab) 1 Tablets By Mouth Every day Contact prescribing physician if questions or concerns Unchanged Misc Prescription (Alcohol wipes) See instructions Use to check BS daily dx E11.9 Contactprescribing physician if questions or concerns Unchanged Misc [...] mellitus with morbid obes (more content not included)...[facility] Health SystemCHEMISTRYOrdered By: Felicity Marin on 36-51-5340Qstrdnk DL <= 20 mg/L (U) [Mass/Vol]mg/dLNormal0.0 - 1.9 mg/dLRemisol ChemAlbumin/Creatinine DL <= 20 mg/L (U) [Mass ratio]NOT CALCULATEDInvalid Interpretation Code0.0 - 30.0 Remisol ChemComment on above:Interpretive Data: 30-300 mg/g Cr indicates an increased risk for diabetic nephropathy. >300 mg/g Cr is consistent with clinical nephropathy.U Ghgjwmclcw28.8 mg/dL Invalid Interpretation CodeRemisol ChemFamily Medicine Office/Clinic Noteon [id number] Medicine Office/Clinic NoteFamily Medicine Office/Clinic Note Chief Complaint Patient presents [...] of the following symptoms? Vision problems? Denies GI-Nausea/committing/bloating? Denies Lightheadedness? Denies Paresthesias, Ulcerations or sores? [...] (abnormal relaxation pattern). [1] List of Providers Assessment Technician: Rick Hernandez PA-C Catering Chef: Dr Phillip Orthopaedics: Dr Martinez LABS Cr/eGFR: [...] Appt. Date: 01/07/2025 12:30 PM Scheduled Provider: [facility] Phone: -- Fax: -- [...] further complications. She did follow-up with her excavation laborer yesterday and she is to follow-up with himin a month. The patient is also dealing with morbid obesity, with a BMI between 50.0 and 59.9. She has not beenengaging in regular exercise due to difficulty breathing and physical limitations. The patient is considering chair exercises as a potential form of physical activity. The patient has type 2 diabetes mellitus, which is complicated by her obesity. She is currently on Trulicity and is awaiting a sleep study to potentially switch to another medication. Her blood sugarlevels have been stable during hospital visits, but she does not monitor them regularly at home. The patient reports a yeast infection, likely secondary to antibiotic use, presenting as a rash along the panting line and under the arms. She has been prescribed Diflucan and a fungal powder for treatment. The patient also has a history of cellulitis, (more content not included)... NormalWooster Community HospitalComment on above:Result Comment: Electronically Signed By: Nigel SMITH, HEEL COVER SOFTENER-IRVING, Paris Hamilton\.br\Date and Time Signed: 01/02/25 15:41 EDTU MA/Cr Ratioon 48-91-2964Qmdfykql/Cr RatioNOT CALCULATEDInvalid Interpretation Code.0-30.0[facility] HospitalComment on above:Result Comment: 30-300 mg/g Cr indicates an increased risk for diabetic nephropathy. >300 mg/g Cr is consistent with clinical nephropathy.Performed By: #### [id number] #### [facility] [address], [place] [address]Q Mbyqwmcaft79.8 mg/dLInvalid Interpretation CodeWooster Community HospitalComment on above:Performed By: #### [id number] #### [facility] [address], [place] [address]D Microalb<0.8Jhdgtw9.0-1.9[facility] Community HospitalComment on above:Performed By: #### [id number] #### [facility] [address], [place] [address]Qvdma and Vascular Office/Clinic Noteon [id number] and Vascular Office/Clinic NoteHeart and Vascular Office/Clinic Note Chief Complaint 6 month follow up, HTN, Peripheral edema, HLD History of Present Illness Patient is a 64-year-old female with past medical history of hypertension, cigarette smoking, GERD,HFpEF, history of alcohol abuse, hyperlipidemia, asthma, BRENDA, [...] increased to 40 mg twice daily upon discharge.Patient is also taking Jardiance, spironolactone to help [...] breathing has improved as well. She states thatshe still is having some shortness of breath, [...] test. Patient denies chest pain, heart palpitations, dizziness/lightheadedness. REVIEWED PRIOR NOTE FROM 06/05/2024: Patient comes in for 6-month follow-up today. At last visit, patient saw Dr. Ramirez at which time she was continued on current medications. Patient reports that she has been doing well since last visit. Patient reports that she is diagnosed with congestive heart failure 1 time when she went to the ER and she was very full fluid. However,patient reports she is not sure if this [...] chest pain, shortness of breath, heart palpitations, dizziness/lightheadedness, and swelling in lower legs. Review of [...] led to swelling, but (more content not included)...Normal [facility] Community HospitalComment on above:Result Comment: Electronically Signed By: Rick Hernandez PA-C\.sonia\Date and Time Signed: 01/01/25 14:28 EDT Population [facility] [id number] [facility] Case Information Case Priority: None Programs: -- Referral Source: [employer] Helper Referral Reason: Care coordination Case Type: Transition Care Management Risk Score: -- Case Status: Enrolled (December 31, 2024) Date Assigned: December 31, 2024 Assigned By: Gracy Maxwell R.N. Date Enrolled: December 31, 2024 Assigned Primary Personnel: Gracy Maxwell R.N. Assigned Secondary Personnel: -- Case Physician: Nigel SMITH, HEEL COVER SOFTENER-DRAPERY HEMMER [employer], Paris Hamilton Problems Ongoing Alcohol abuse, in remission [...] implant bilat, Knee replacement, L foot bunion/reconstruction. Home Medications Abilify 5 mg Tab, 5 [...] average. 16.00 drinks/episode maximum. Started age 18 Years.Stopped age 61 Years. Previous treatment: Inpatient. Alcohol [...] enrollment Goals and Intervention (more content not included)...[facility] Health SystemCoding Queryon [id number] QueryCoding Query From: Anais Wood RN To: Abisai Kaur III, DO; [...] particular answer is desired or expected. Thank you!anais [phone] Opioid abuse in remission From: Abisai Kaur III, DO To: Nina RN, Anais Gipson; Sent: 12/30/2024 13:50:00 EDT Subject: RE: Coding Query Caller Name: CARMEN BLEDSOE; Caller Number: Cuca , M [facility] Health SystemBMPon [id number] gap [Moles/Vol]10 mmol/L Normal6-16[facility] Community HospitalComment on above:Performed By: #### [id number] #### [facility] [address], [place] [address]JAF/Creat Ratio30 No MjjahXbaq31-27XimgbhWooster Community Hospital Comment on above:Performed By: #### [id number] #### [facility] [address], [place] [address]Riguory [Mass/Vol]9.1 mg/dLNormal8.9-11.1Fisher [facility] Samaritan HospitalComment on above:Performed By: #### [id number] #### [facility] [address], [place] [address]Gydrceha [Moles/Vol]98 mmol/YKdo511-119QmogasWooster Community HospitalComment on above:Performed By: #### [id number] #### [facility] [address], [place] [address]JC6 [Moles/Vol]31 mmol/ITqzpqk01-63VggixuWooster Community Hospital Comment on above:Performed By: #### [id number] #### [facility] [address], [place] [address]Eexojmvcfi [Mass/Vol]0.7 mg/dLNormal0.5-1.3FWilson Memorial HospitalComment on above:Performed By: #### [id number] #### [facility] [address], [place] [address]Rkhbckk [Mass/Vol]185 mg/xCKgddro28-179BmvkgfWooster Community HospitalComment on above:Performed By: #### [id number] #### [facility] [address], [place] [address]Wmjzneiuo [Moles/Vol]4.2 mmol/LNormal3.5-5.3FWilson Memorial HospitalComment on above:Performed By: #### [id number] #### [facility] [address] [place] [address]Bqvpna [Moles/Vol]135 mmol/HCvmgai159-717CsdutqWooster Community HospitalComment on above:Performed By: #### [id number] #### [facility] [address] [place] [address]Gzpz nitrogen [Mass/Vol]21 mg/dLNormal5-21[facility] HospitalComment on above:Performed By: #### [id number] #### [facility] [address] [place] [address]KGH w/ Auto Diffon 72-74-2173Igabmkhz Absolute0.1 E9/LNormal 0.0-0.2FWilson Memorial HospitalComment on above:Performed By: #### [id number] #### [facility] [address] [place] [address]Wlisgdymj/100 WBC (Bld)0.6 %Normal0.0-2.0W[facility] Community HospitalComment on above:Performed By: #### [id number] #### [facility] [address] [place] [address]Fif Absolute0.0 E9/LNormal0.0-0.5FWilson Memorial Hospital Comment on above:Performed By: #### [id number] #### [facility] [address], [place] [address]Ldusoxdjovb/100 WBC (Bld)0.0 %Normal0.0-8.0[facility] HospitalComment on above:Performed By: #### [id number] #### [facility] [address], [place] [address]Flxyccbzfcm distribution width (RBC) [Ratio]15.6 %High10.9-14.2 [facility] HospitalComment on above:Performed By: #### [id number] #### [facility] [address], [place] [address]Gfhgyjecev (Bld) [Volume fraction]39.3 %Irmjki50.0-46.0[facility] HospitalComment on above:Performed By: #### [id number] #### [facility] [address] [place] [address]Funjqjuzud (Bld) [Mass/Vol]13.0 g/vSFvukfb28.0-16.0[facility] HospitalComment on above:Performed By: #### [id number] #### [facility] [address] [place] [address]Hnkxa Absolute0.6 E9/LLow1.0-4.0[facility] Comment on above:Performed By: #### [id number] #### [facility] [address], [place] [address]Cqgdzqmqewa/100 WBC (Bld)6.3 %Low14.0-50.0[facility] Community HospitalComment on above:Performed By: #### [id number] #### [facility] [address], [place] [address]OWY (RBC) [Entitic mass]30.4 faIgtdzs09.0-34.0[facility] HospitalComment on above:Performed By: #### [id number] #### [facility] [address], [place] [address]NLAD (RBC) [Mass/Vol]33.2 g/uGDboyra61.4-36.0[facility] HospitalComment on above:Performed By: #### [id number] #### [facility] [address], [place] [address]SYS (RBC) [Entitic vol]91.6 fDQputso53.0-100.0[facility] HospitalComment on above:Performed By: #### [id number] #### [facility] [address], [place] [address]Jdtm Absolute0.5 E9/LNormal0.2-1.0[facility] Comment on above:Performed By: #### [id number] #### [facility] [address], [place] [address]Ofebhvaru/100 WBC (Bld)5.0 %Normal4.0-14.0[facility] HospitalComment on above:Performed By: #### [id number] #### [facility] [address], [place] [address]Takkqo Absolute8.3 E9/LHigh2.0-7.5FWilson Memorial Hospital Comment on above:Performed By: #### [id number] #### [facility] [address], [place] [address]Iqukqu Auto88.1 %High36.0-75.0[facility] Comment on above:Performed By: #### [id number] #### [facility] [address], [place] [address]Mdhtmblr487.0 E9/MDodulk086.0-500.0[facility] Comment on above:Performed By: #### [id number] #### [facility] [address], [place] [address]Zixpclsf mean volume (Bld) [Entitic vol]7.3 fLNormal6.4-10.8 [facility] HospitalComment on above:Performed By: #### [id number] #### [facility] [address], [place] [address]AZX6.3 E12/LNormal4.3-5.9[facility] HospitalComment on above:Performed By: #### [id number] #### [facility] [address], [place] [address]AKB5.4 E9/LNormal4.0-11.0[facility] HospitalComment on above:Performed By: #### [id number] #### [facility] [address], [place] [address]DHGONIGEUMeyzzed By: Vandana Marinelli on 18-68-4696Enxqvmh [Mass/Vol]200 mg/gCBmgw57 - 99 mg/dLCORNERSTONE [facility] POC SubsectionComment on above:Result Comment: Notified RN/MDPOC UsernamLELE RosadoInvalid Interpretation Code [facility] POC SubsectionSodium [Moles/Vol]796230631 mmol/LInvalid Interpretation Code [facility] SubsectionSodium [Moles/Vol]352588701303 mmol/LInvalid Interpretation CodeCORNERSTONE [facility] SubsectionGlucose [Mass/Vol]166 mg/hYTefo95 - 99 mg/dLCORNERSTONE [facility]OC SubsectionComment on above:Result Comment: Notified RN/MDPOC UsernamEvans Chairez Interpretation CodeCOR[facility]ST[facility] SubsectionSodium [Moles/Vol]025203675 mmol/LInvalid Interpretation CodeCOR[facility]STONE [facility] SubsectionSodium [Moles/Vol] [id number] mmol/LInvalid Interpretation CodeCORNERSTONE [facility] POC SubsectionCHEMISTRY Ordered By: SYSTEM SYSTEM on 67-21-3209Vuaxf gap [Moles/Vol]10 mmol/LNormal6 - 16 mEq/LRemisol ChemCalcium [Mass/Vol]9.1 mg/dLNormal8.9 - 11.1 mg/dLRemisol ChemChloride [Moles/Vol]98 mmol/CAgj583 - 111 mmol/LRemisol ChemCO2 [Moles/Vol] 31 mmol/IMyhaih96 - 31 mmol/LRemisol ChemCreatinine [Mass/Vol]0.7 mg/dLNormal0.5 - 1.3 mg/dLRemisol ChemGFR/1.73 sq M.predicted MDRD (S/P/Bld) [Vol rate/Area]98 mL/min/1.73 g1Heeoza>=59mL/min/1.73 f1Kxufadg ChemGlucose [Mass/Vol]185 mg/dL Mpoqfh40 - 199 mg/dLRemisol ChemPotassium [Moles/Vol]4.2 mmol/LNormal3.5 - 5.3 mmol/LRemisol ChemSodium [Moles/Vol]135 mmol/OUavumy308 - 145 mmol/LRemisol Chem Urea nitrogen [Mass/Vol]21 mg/dLNormal5 - 21 mg/dLRemisol ChemUrea nitrogen/Creatinine [Mass ratio]30 mg/gvCnlf06 - 20Remisol ChemCapillary Glucose POCon 32-02-4034Ifqwwef [Mass/Vol]200 mg/wHQpjj25-26QsqadcWooster Community Hospital Comment on above:Result Comment: Notified RN/MDPerformed By: #### [id number] #### [facility] [address], [place] [address]Qteyolk [Mass/Vol]166 mg/pBQmts17-63NprhrwWooster Community Hospital Comment on above:Result Comment: Notified RN/MDPerformed By: #### [id number] #### [facility] [address], [place] [address]RHDXVQALSGVyzfene By: SYSTEM SYSTEM on 75-32-1728Gonbqxmih/100 WBC (Bld)0.6 %Normal0.0 - 2.0 %Remisol HemeBasophils/Leukocytes Auto (Bld) [Pure # fraction]0.1 E9/LNormal0.0 - 0.2 E9/LRemisol HemeEosinophils (Bld) [#/Vol]0.0 E9/LNormal0.0 - 0.5 E9/LRemisol HemeEosinophils/100 WBC (Bld)0.0 %Normal0.0 - 8.0 %Remisol HemeErythrocyte distribution width (RBC) [Ratio]15.6 %High10.9 - 14.2 %Remisol HemeHematocrit (Bld) [Volume fraction]39.3 %Amwvhg80.0 - 46.0 % Remisol HemeHemoglobin (Bld) [Mass/Vol]13.0 g/qCQujrzm23.0 - 16.0 gm/dLRemisol HemeLymphocytes (Bld) [#/Vol]0.6 E9/LLow1.0 - 4.0 E9/LRemisol Heme Lymphocytes/100 WBC (Bld)6.3 %Low14.0 - 50.0 %Remisol HemeMCH (RBC) [Entitic mass]30.4 pxSopgrx07.0 - 34.0 pgRemisol HemeMCHC (RBC) [Mass/Vol]33.2 g/dLNormal 31.4 - 36.0 gm/dLRemisol HemeMCV (RBC) [Entitic vol]91.6 lCLbyyiw80.0 - 100.0 fL Remisol HemeMonocytes (Bld) [#/Vol]0.5 E9/LNormal0.2 - 1.0 E9/LRemisol Heme Monocytes/100 WBC (Bld)5.0 %Normal4.0 - 14.0 %Remisol HemeNeutrophils (Bld) [#/Vol]8.3 E9/LHigh2.0 - 7.5 E9/LRemisol HemeNeutrophils/100 WBC (Bld)88.1 %High 36.0 - 75.0 %Remisol HemePlatelet mean volume (Bld) [Entitic vol]7.3 fLNormal6.4 - 10.8 fLRemisol HemePlatelets (Bld) [#/Vol]286.0 E9/RDmqgcu605.0 - 500.0 E9/L Remisol HemeRBC (Bld) [#/Vol]4.3 E12/LNormal4.3 - 5.9 E12/LRemisol HemeWBC corrected for nucl RBC Auto (Bld) [#/Vol]9.4 E9/LNormal4.0 - 11.0 E9/LRemisol HemeInpatient Patient Summaryon [id number] Patient SummaryInpatient Patient Summary LADICARMEN :1960 Visit Date:12/27/2024 Inpatient Discharge Instructions Your [...] implant bilat, Knee replacement, L foot bunion/reconstruction. Discharge Vitals Temperature (Oral) 36.7 ???C Heart Rate (Monitored) 64 Respiratory Rate 18 Blood Pressure 151/78 What to do next Instructions From Your Doctor Event Name Event Result Discharge Activity Ambulate as tolerated Discharge Diet(s) Regular Pending Diagnostic Test Results None Discharge Instructions Wear compression socks/stockings daily and off at night. Discuss inceased lasix dose with your excavation laborer. May discuss adding Entresto or Losartan as outpatient too to help with your heart failure.Return to ER if symptoms return or wrosen Previously Scheduled Follow-Up Appointments Tuesday 2:00 PM EDT With: David LEONARD, Rick Gipson Where: Cardiology Clinic Tuesday 1:40 PM EDT With: Nigel MSN, HEEL COVER SOFTENER-DRAPERY HEMMER [employer], Paris Hamilton Where: [facility] [place] [address] [facility] [place] [address]- Tuesday 12:30 PM EDT With: Where: Cardiovascular Services New Follow Up Appointments after Discharge Follow Up with Follow up with your excavation laborer as Scheduled January 01 When: Follow Up with Paris Rust When: Within 7 to 10 days Comments: Call for followup appointment Where: [address] [facility] [place] [address] [phone] Business (1) Medications What How Much When Why Instructions Next Dose New azithromycin (azithromycin 250 mg Tab) 1 Tablets By Mouth Every day COPD with acute exacerbation Duration: 3 Days Pickup at [facility] New predniSONE (predniSONE 10 mg Tab) 1 Tablets By Mouth As Directed COPD with acute exacerbation 4tabs for 2 days,3 tabs for 2 days,2 tabs for 2 days,1 tab for 2 days Pickup at [facility] Changed cephalexin (cephalexin 500 mg Cap) 1 Capsules By Mouth 4 times a day Cellulitis of leg Duration: 8 Days Pickup at [facility] Changed furosemide (furosemide 40 mg Tab) 1 Tablets By Mouth 2 times a day Peripheral edema Acute on chronic heart failure with preserved ejection fraction Pickup at [facility] Unchanged albuterol (Albuterol (Eqv-Ventolin HFA) 90 mcg/ inh inhalation aerosol) 2 Puffs Inhalation Every 6 hours as needed for Shortness of breath or wheezing COPD with acute exacerbation [facility] Unchanged aripiprazole (Abilify 5 mg [...] BS TID and P (more content not included)...NormalWooster Community HospitaleGFRon 28-33-4753tKNW97 mL/min/1.73 q0Iyazke>=59W[facility] HospitalComment on above:Performed By: #### [id number] #### [facility] [address] [place] [address]PRX w/ Auto Diffon 22-73-4287Dukqcjwc Absolute0.1 E9/LNormal 0.0-0.2Fisher [facility] HospitalComment on above:Performed By: #### [id number] #### [facility] [address] [place] [address]Qdqzsyumd/100 WBC (Bld)1.6 %Normal0.0-2.0[facility] HospitalComment on above:Performed By: #### [id number] #### [facility] [address] [place] [address]Dxa Absolute0.0 E9/LNormal0.0-0.5[facility] Comment on above:Performed By: #### [id number] #### [facility] [address] [place] [address]Yeyvnhigfqr/100 WBC (Bld)0.1 %Normal0.0-8.0[facility] HospitalComment on above:Performed By: #### [id number] #### [facility] [address] [place] [address]Iccwpqkwnvz distribution width (RBC) [Ratio]15.7 %High10.9-14.2 [facility] HospitalComment on above:Performed By: #### [id number] #### [facility] [address] [place] [address]Opfcpvznnv (Bld) [Volume fraction]40.0 %Ctdopd81.0-46.0[facility] HospitalComment on above:Performed By: #### [id number] #### [facility] [address], [place] [address]Zfgyaufgfk (Bld) [Mass/Vol]13.7 g/fLHvveop63.0-16.0[facility] HospitalComment on above:Performed By: #### [id number] #### [facility] [address] [place] [address]Bhuip Absolute0.4 E9/LLow1.0-4.0[facility] Comment on above:Performed By: #### [id number] #### [facility] [address] [place] [address]Clnpwxvqbkr/100 WBC (Bld)4.8 %Low14.0-50.0[facility] HospitalComment on above:Performed By: #### [id number] #### [facility] [address] [place] [address]UJN (RBC) [Entitic mass]31.4 vcAcqgta55.0-34.0[facility] HospitalComment on above:Performed By: #### [id number] #### [facility] [address] [place] [address]XOOR (RBC) [Mass/Vol]34.3 g/yJKmhwtb09.4-36.0[facility] HospitalComment on above:Performed By: #### [id number] #### [facility] [address] [place] [address]SUQ (RBC) [Entitic vol]91.7 mHGvxemv35.0-100.0[facility] HospitalComment on above:Performed By: #### [id number] #### [facility] [address] [place] [address]Wppj Absolute0.1 E9/LLow0.2-1.0[facility] Comment on above:Performed By: #### [id number] #### [facility] [address], [place] [address]Lioezxpvx/100 WBC (Bld)1.8 %Low4.0-14.0[facility] HospitalComment on above:Performed By: #### [id number] #### [facility] [address], [place] [address]Tutxzk Absolute7.4 E9/LNormal2.0-7.5FWilson Memorial Hospital Comment on above:Performed By: #### [id number] #### [facility] [address], [place] [address]Yfqwxe Auto91.7 %High36.0-75.0[facility] Comment on above:Performed By: #### [id number] #### [facility] [address], [place] [address]Dyjvmmun965.0 E9/MEjkhor560.0-500.0[facility] Comment on above:Performed By: #### [id number] #### [facility] [address] [place] [address]Kdltnjvc mean volume (Bld) [Entitic vol]7.4 fLNormal6.4-10.8 [facility] HospitalComment on above:Performed By: #### [id number] #### [facility] [address] [place] [address]NFL6.4 E12/LNormal4.3-5.9[facility] HospitalComment on above:Performed By: #### [id number] #### [facility] [address] [place] [address]COC3.1 E9/LNormal4.0-11.0[facility] HospitalComment on above:Performed By: #### [id number] #### [facility] [address] [place] [address]PLTVQSJWPYdwnnkt By: Vandana Marinelli on 68-78-5574Spxuzqx [Mass/Vol]217 mg/iOFocw86 - 99 mg/dLCORNERSTONE [facility] POC SubsectionComment on above:Result Comment: Notified RN/MDPOC UsernamEvans Chairez Interpretation Code [facility] POC SubsectionSodium [Moles/Vol][id number] mmol/LInvalid Interpretation CodeCOR[facility] SubsectionSodium [Moles/Vol][id number] mmol/LInvalid Interpretation [facility] POC SubsectionCHEMISTRYOrdered By: SYSTEM SYSTEM on 87-40-1956Hwkirqk [Mass/Vol]4.5 g/dLNormal3.3 - 5.0 gm/dLRemisol ChemAlbumin/Globulin [Mass ratio] 1.4 {ratio}Normal1.1 - 2.2Remisol ChemALP [Catalytic activity/Vol]62 [iU]/d Xoogow80 - 98 Int._Unit/LRemisol ChemALT No additional P-5'-P [Catalytic activity/Vol]24 [iU]/dNormal6 - 46 Int._Unit/LRemisol ChemAnion gap [Moles/Vol] 14 mmol/LNormal6 - 16 mEq/LRemisol ChemAST [Catalytic activity/Vol]20 [iU]/d Normal5 - 43 Int._Unit/LRemisol ChemBilirubin [Mass/Vol]0.4 mg/dLNormal0.0 - 1.1 mg/dLRemisol ChemCalcium [Mass/Vol]9.2 mg/dLNormal8.9 - 11.1 mg/dLRemisol Chem Chloride [Moles/Vol]97 mmol/IYys626 - 111 mmol/LRemisol ChemCO2 [Moles/Vol]28 mmol/SYcmyhi21 - 31 mmol/LRemisol ChemCreatinine [Mass/Vol]0.7 mg/dLNormal0.5 - 1.3 mg/dLRemisol ChemGFR/1.73 sq M.predicted MDRD (S/P/Bld) [Vol rate/Area]98 mL/min/1.73 p8Ysndfo>=59mL/min/1.73 b9Bliejvk ChemGlobulin (S) [Mass/Vol]3.3 g/dLNormal1.4 - 4.0 gm/dLRemisol ChemGlucose [Mass/Vol]157 mg/qWFjpsky14 - 199 mg/dLRemisol ChemPotassium [Moles/Vol]4.0 mmol/LNormal3.5 - 5.3 mmol/LRemisol ChemProtein [Mass/Vol]7.8 g/dLNormal6.0 - 7.8 gm/dLRemisol ChemSodium [Moles/Vol]135 mmol/IBuaqhx373 - 145 mmol/LRemisol ChemUrea nitrogen [Mass/Vol] 14 mg/dLNormal5 - 21 mg/dLRemisol ChemUrea nitrogen/Creatinine [Mass ratio]20 mg/xhAtqyun21 - 20Remisol ChemCMPon 24-26-5872Ewqgdiy [Mass/Vol]4.5 g/dLNormal 3.3-5.0[facility] HospitalComment on above:Performed By: #### [id number] #### [facility] [address], [place] [address]Zwlfvit/Globulin [Mass ratio]1.4 {ratio}Normal1.1-2.2FWilson Memorial HospitalComment on above:Performed By: #### [id number] #### [facility] [address], [place] [address]Ril Phos62 Int._Unit/EAkbvqu59-40WlrsfmWooster Community Hospital Comment on above:Performed By: #### [id number] #### [facility] [address], [place] [address]UNJ52 Int._Unit/LNormal6-46[facility] HospitalComment on above:Performed By: #### [id number] #### [facility] [address], [place] [address]Amfyc gap [Moles/Vol]14 mmol/LNormal6-16[facility] HospitalComment on above:Performed By: #### [id number] #### [facility] [address], [place] [address]RQM70 Int._Unit/LNormal5-43[facility] HospitalComment on above:Performed By: #### [id number] #### [facility] [address], [place] [address]Kfra Total0.4 mg/dLNormal0.0-1.1FWilson Memorial Hospital Comment on above:Performed By: #### [id number] #### [facility] [address], [place] [address]NEP/Creat Ratio20 No BcydlPxoczv43-61CyilwmWooster Community HospitalComment on above:Performed By: #### [id number] #### [facility] [address], [place] [address]Fouewoy [Mass/Vol]9.2 mg/dLNormal8.9-11.1FWilson Memorial HospitalComment on above:Performed By: #### [id number] #### [facility] [address], [place] [address]Pjpsttvl [Moles/Vol]97 mmol/VSdt376-545OdhredWooster Community HospitalComment on above:Performed By: #### [id number] #### [facility] [address], [place] [address]KI6 [Moles/Vol]28 mmol/SSrtjae89-55YefqmeWooster Community Hospital Comment on above:Performed By: #### [id number] #### [facility] [address], [place] [address]Earoloydig [Mass/Vol]0.7 mg/dLNormal0.5-1.3FWilson Memorial HospitalComment on above:Performed By: #### [id number] #### [facility] [address], [place] [address]Gadxublt (S) [Mass/Vol]3.3 g/dLNormal1.4-4.0[facility] HospitalComment on above:Performed By: #### [id number] #### [facility] [address], [place] [address]Lxiajhq [Mass/Vol]157 mg/kEBbhvaa21-496FzwcouWooster Community HospitalComment on above:Performed By: #### [id number] #### [facility] [address], [place] [address]Oivsneazk [Moles/Vol]4.0 mmol/LNormal3.5-5.3FWilson Memorial HospitalComment on above:Performed By: #### [id number] #### [facility] [address], [place] [address]Qdlsrtl [Mass/Vol]7.8 g/dLNormal6.0-7.8[facility] HospitalComment on above:Performed By: #### [id number] #### [facility] [address], [place] [address]Riivkv [Moles/Vol]135 mmol/IAnuveo867-205MbxqedWooster Community HospitalComment on above:Performed By: #### [id number] #### [facility] [address], [place] [address]Qlvy nitrogen [Mass/Vol]14 mg/dLNormal5-21[facility] HospitalComment on above:Performed By: #### [id number] #### [facility] [address], [place] [address]Ltewcyljj Glucose POCon 99-94-3322Qnhgfof [Mass/Vol]217 mg/dL Ehnw71-57ClcfozWooster Community HospitalComment on above:Result Comment: Notified RN/MDPerformed By: #### [id number] #### [facility] [address], [place] [address]Ezxrojh [Mass/Vol]193 mg/fTExbi91-22FrbkuxWooster Community Hospital Comment on above:Result Comment: Notified RN/MDPerformed By: #### [id number] #### [facility] [address], [place] [address]Srhepgt [Mass/Vol]162 mg/eLDsvy68-80OjhqgxWooster Community Hospital Comment on above:Result Comment: Notified RN/MDPerformed By: #### [id number] #### [facility] [address], [place] [address]Ehsbdia [Mass/Vol]154 mg/dMHreg94-31VdcjllWooster Community Hospital Comment on above:Result Comment: Notified RN/MDPerformed By: #### [id number] #### [facility] [address], [place] [address]Zdmhkb Queryon 07-98-2331Yvicnt QueryCoding Query From: Anais Wood RN To: Abisai Kaur III, DO; [...] particular answer is desired or expected. Thank you!anais 6396NoCleveland Clinic Avon HospitalHEMATOLOGYOrdered By: SYSTEM SYSTEM on 52-98-5259Sacraczvg/100 WBC (Bld) 1.6 %Normal0.0 - 2.0 %Remisol HemeBasophils/Leukocytes Auto (Bld) [Pure # fraction]0.1 E9/LNormal0.0 - 0.2 E9/LRemisol HemeEosinophils (Bld) [#/Vol]0.0 E9/LNormal0.0 - 0.5 E9/LRemisol HemeEosinophils/100 WBC (Bld)0.1 %Normal0.0 - 8.0 %Remisol HemeErythrocyte distribution width (RBC) [Ratio]15.7 %High10.9 - 14.2 %Remisol HemeHematocrit (Bld) [Volume fraction]40.0 %Relbag92.0 - 46.0 % Remisol HemeHemoglobin (Bld) [Mass/Vol]13.7 g/gUAktalp69.0 - 16.0 gm/dLRemisol HemeLymphocytes (Bld) [#/Vol]0.4 E9/LLow1.0 - 4.0 E9/LRemisol Heme Lymphocytes/100 WBC (Bld)4.8 %Low14.0 - 50.0 %Remisol HemeMCH (RBC) [Entitic mass]31.4 dbEonrso14.0 - 34.0 pgRemisol HemeMCHC (RBC) [Mass/Vol]34.3 g/dLNormal 31.4 - 36.0 gm/dLRemisol HemeMCV (RBC) [Entitic vol]91.7 yERshuei75.0 - 100.0 fL Remisol HemeMonocytes (Bld) [#/Vol]0.1 E9/LLow0.2 - 1.0 E9/LRemisol Heme Monocytes/100 WBC (Bld)1.8 %Low4.0 - 14.0 %Remisol HemeNeutrophils (Bld) [#/Vol] 7.4 E9/LNormal2.0 - 7.5 E9/LRemisol HemeNeutrophils/100 WBC (Bld)91.7 %High36.0 - 75.0 %Remisol HemePlatelet mean volume (Bld) [Entitic vol]7.4 fLNormal6.4 - 10.8 fLRemisol HemePlatelets (Bld) [#/Vol]274.0 E9/JEkbavg384.0 - 500.0 E9/L Remisol HemeRBC (Bld) [#/Vol]4.4 E12/LNormal4.3 - 5.9 E12/LRemisol HemeWBC corrected for nucl RBC Auto (Bld) [#/Vol]8.1 E9/LNormal4.0 - 11.0 E9/LRemisol HemeInterdisciplinary Note - Case Manageron 01-21-8201Yrgrououbuaohvzsb Note - Case ManagerInterdisciplinary Note - Mental Health Social Worker CRM to room 321 Patient is awake, alert and oriented. Patient is from home lives with her Brother. Patient neighboris [place] ride [place]. Patient PLOF is independent in self care. [...] huddle with hospitalists ECHO today Possible weekend [facility] HospitalComment on above:Result Comment: Electronically Signed By: Clara Gold\.br\Date and Time Signed: 12/28/24 12:02 EDTInterdisciplinary Note - Case ManagerInterdisciplinary Note - Mental Health Social Worker CRM to room 321 Patient is awake, alert and oriented. Patient is from home lives with her Brother. Patient neighboris her ride at [place]. Patient PLOF is independent in self care. [...] get updates at 10 AM huddle with hospitalistsHolzer Health SystemComment on above:Result Comment: Electronically Signed By: Clara Gold\.br\Date and Time Signed: 12/28/24 08:39 EDTUS Lower Extremity Venous Duplex Bilateralon [id number] Lower Extremity Venous Duplex BilateralExam Date/Time: 12/27/2024 18:23 EDT Reason for Exam: [...] Sathya Christianson MD Transcribed by: KARSTEN Technologist: TulioWooster Community HospitaleGFRon 55-64-6517iPQH29 mL/min/1.73 n9Aaoaxq>=59W[facility] Community HospitalComment on above:Performed By: #### [id number] #### [facility] [address], [place] [address]NWRlc 25-03-9020Uafrp gap [Moles/Vol]12 mmol/LNormal6-16[facility] HospitalComment on above:Performed By: #### [id number] #### [facility] [address], [place] [address]KIC/Creat Ratio18 No DgumcZqlgrc33-47AqbqsmWooster Community HospitalComment on above:Performed By: #### [id number] #### [facility] [address], [place] [address]Mnltbhq [Mass/Vol]8.9 mg/dLNormal8.9-11.1FWilson Memorial HospitalComment on above:Performed By: #### [id number] #### [facility] [address], [place] [address]Pbphhzlk [Moles/Vol]100 mmol/HQdw256-693RgvgpjWooster Community HospitalComment on above:Performed By: #### [id number] #### [facility] [address], [place] [address]RR3 [Moles/Vol]27 mmol/HMgujls28-97MexuubWooster Community Hospital Comment on above:Performed By: #### [id number] #### [facility] [address], [place] [address]Yggkkhihsa [Mass/Vol]0.8 mg/dLNormal0.5-1.3FWilson Memorial HospitalComment on above:Performed By: #### [id number] #### [facility] [address], [place] [address]Kavlwli [Mass/Vol]147 mg/vBYzvlyr29-728CtoqmvWooster Community HospitalComment on above:Performed By: #### [id number] #### [facility] [address], [place] [address]Gmwnzyzdc [Moles/Vol]3.9 mmol/LNormal3.5-5.3FWilson Memorial HospitalComment on above:Performed By: #### [id number] #### [facility] [address], [place] [address]Xqmgao [Moles/Vol]135 mmol/KXmkxar479-488TefbtbWooster Community HospitalComment on above:Performed By: #### [id number] #### [facility] [address], [place] [address]Milh nitrogen [Mass/Vol]14 mg/dLNormal5-21[facility] HospitalComment on above:Performed By: #### [id number] #### [facility] [address], [place] [address]PBHru 04-06-4405Dkp Ctr BNPPassNormalWooster Community HospitalComment on above:Performed By: #### [id number] #### [facility] [address] [place] [address]Kviurrthstn peptide B (Bld) [Mass/Vol]20 pg/mLNormal5-80[facility] HospitalComment on above:Performed By: #### [id number] #### [facility] [address] [place] [address]FIB w/ Auto Diffon 15-74-3917Kiapivcd Absolute0.1 E9/LNormal 0.0-0.2FWilson Memorial HospitalComment on above:Performed By: #### [id number] #### [facility] [address] [place] [address]Coaathuje/100 WBC (Bld)0.8 %Normal0.0-2.0[facility] Community HospitalComment on above:Performed By: #### [id number] #### [facility] [address] [place] [address]Hei Absolute0.1 E9/LNormal0.0-0.5FWilson Memorial Hospital Comment on above:Performed By: #### [id number] #### [facility] [address] [place] [address]Hthhiinxvga/100 WBC (Bld)1.0 %Normal0.0-8.0[facility] HospitalComment on above:Performed By: #### [id number] #### [facility] [address] [place] [address]Ggcqjrczndw distribution width (RBC) [Ratio]15.6 %High10.9-14.2 [facility] HospitalComment on above:Performed By: #### [id number] #### [facility] [address] [place] [address]Bncbutvqfg (Bld) [Volume fraction]37.2 %Uqnyti67.0-46.0[facility] HospitalComment on above:Performed By: #### [id number] #### [facility] [address] [place] [address]Tcvrcswnjj (Bld) [Mass/Vol]13.2 g/uLQojxea39.0-16.0[facility] HospitalComment on above:Performed By: #### [id number] #### [facility] [address] [place] [address]Mdrlf Absolute0.9 E9/LLow1.0-4.0[facility] Comment on above:Performed By: #### [id number] #### [facility] [address] [place] [address]Usevcpajlay/100 WBC (Bld)12.1 %Low14.0-50.0[facility] HospitalComment on above:Performed By: #### [id number] #### [facility] [address] [place] [address]FJQ (RBC) [Entitic mass]32.2 dyZqeqsw12.0-34.0[facility] HospitalComment on above:Performed By: #### [id number] #### [facility] [address] [place] [address]CVHI (RBC) [Mass/Vol]35.5 g/sGYjnlak10.4-36.0[facility] HospitalComment on above:Performed By: #### [id number] #### [facility] [address] [place] [address]FYT (RBC) [Entitic vol]90.8 uMEupuqm40.0-100.0[facility] HospitalComment on above:Performed By: #### [id number] #### [facility] [address] [place] [address]Xhcu Absolute0.4 E9/LNormal0.2-1.0[facility] Comment on above:Performed By: #### [id number] #### [facility] [address] [place] [address]Iqqufturc/100 WBC (Bld)5.3 %Normal4.0-14.0[facility] HospitalComment on above:Performed By: #### [id number] #### [facility] [address] [place] [address]Liozyv Absolute5.8 E9/LNormal2.0-7.5FWilson Memorial Hospital Comment on above:Performed By: #### [id number] #### [facility] [address] [place] [address]Uvevnj Auto80.8 %High36.0-75.0[facility] Comment on above:Performed By: #### [id number] #### [facility] [address] [place] [address]Dvkuaugu723.0 E9/QIxmshs415.0-500.0[facility] Comment on above:Performed By: #### [id number] #### [facility] [address] [place] [address]Hhaiekjf mean volume (Bld) [Entitic vol]7.2 fLNormal6.4-10.8 [facility] HospitalComment on above:Performed By: #### [id number] #### [facility] [address] [place] [address]KNG9.1 E12/LLow4.3-5.9[facility] HospitalComment on above:Performed By: #### [id number] #### [facility] [address] [place] [address]SMX4.2 E9/LNormal4.0-11.0[facility] HospitalComment on above:Performed By: #### [id number] #### [facility] [address] [place] [address]GFHOZZNBJOojbero By: SYSTEM SYSTEM on 06-25-1710Dunsrovk HS 27.70 pg/mLLaym20.10 - 27.10 pg/mLRemisol ChemComment on above:Interpretive Data: The 95% CI (Confidence Interval) PPV (Positive Predictive Value) for myocardial infarction in females is 38 pg/mL, in males 51 pg/mL. The results should be used in conjunction withclinical conditions of myocardial infarction. (Access High Sensitivity Troponin I Instructions For Use, [employer], February 2018)Troponin HS28.80 pg/bMUbub51.10 - 27.10 pg/mLRemisol ChemComment on above:Interpretive Data: The 95% CI (Confidence Interval) PPV (Positive Predictive Value) for myocardial infarction in females is 38 pg/mL, in males 51 pg/mL. The results should be used in conjunction withclinical conditions of myocardial infarction. (Access High Sensitivity Troponin I Instructions For Use, [employer], February 2018)Troponin HS28.80 pg/aBWeps66.10 - 27.10 pg/mLRemisol ChemComment on above:Interpretive Data: The 95% CI (Confidence Interval) PPV (Positive Predictive Value) for myocardial infarction in females is 38 pg/mL, in males 51 pg/mL. The results should be used in conjunction withclinical conditions of myocardial infarction. (openPeople High Sensitivity Troponin I Instructions For Use, [employer], February 2018)Albumin [Mass/Vol]4.3 g/dLNormal3.3 - 5.0 gm/dLRemisol Chem Albumin/Globulin [Mass ratio]1.4 {ratio}Normal1.1 - 2.2Remisol ChemALP [Catalytic activity/Vol]62 [iU]/hRncahd19 - 98 Int._Unit/LRemisol ChemALT No additional P-5'-P [Catalytic activity/Vol]23 [iU]/dNormal6 - 46 Int._Unit/L Remisol ChemAnion gap [Moles/Vol]12 mmol/LNormal6 - 16 mEq/LRemisol ChemAST [Catalytic activity/Vol]21 [iU]/dNormal5 - 43 Int._Unit/LRemisol ChemBilirubin [Mass/Vol]0.4 mg/dLNormal0.0 - 1.1 mg/dLRemisol ChemBilirubin.direct [Mass/Vol] 0.1 mg/dLNormal0.0 - 0.4 mg/dLRemisol ChemBilirubin.indirect [Mass or moles/Vol] 0.3 mg/dLNormal0.1 - 0.9 mg/dLRemisol ChemCalcium [Mass/Vol]8.9 mg/dLNormal8.9 - 11.1 mg/dLRemisol ChemChloride [Moles/Vol]100 mmol/XHfp399 - 111 mmol/LRemisol ChemCO2 [Moles/Vol]27 mmol/WOhnwix89 - 31 mmol/LRemisol ChemCreatinine [Mass/Vol]0.8 mg/dLNormal0.5 - 1.3 mg/dLRemisol ChemGFR/1.73 sq M.predicted MDRD (S/P/Bld) [Vol rate/Area]83 mL/min/1.73 c0Pmskyx>=59mL/min/1.73 y5Uejgjga Chem Globulin (S) [Mass/Vol]3.0 g/dLNormal1.4 - 4.0 gm/dLRemisol ChemGlucose [Mass/Vol]147 mg/uOAopljt21 - 199 mg/dLRemisol ChemLactate [Moles/Vol]1.2 mmol/L Normal0.5 - 2.2 mmol/LRemisol ChemPotassium [Moles/Vol]3.9 mmol/LNormal3.5 - 5.3 mmol/LRemisol ChemProcalcitonin0.08 ng/mLNormal0.00 - 0.50 ng/mLRemisol Chem Comment on above:Interpretive Data: <0.5 ng/mL Low risk of severe sepsis [...] to retest PCT within 6 to 24 hours.Protein [Mass/Vol]7.3 g/dLNormal6.0 - 7.8 gm/dL Remisol ChemSodium [Moles/Vol]135 mmol/YVdzdei421 - 145 mmol/LRemisol ChemTSH Qn 2.71 m[IU]/LNormal0.34 - 5.60 mcIU/mLRemisol ChemUrea nitrogen [Mass/Vol]14 mg/dLNormal5 - 21 mg/dLRemisol ChemUrea nitrogen/Creatinine [Mass ratio]18 mg/mg Wgjoep61 - 20Remisol ChemCHEMISTRYOrdered By: Liv John on 12-27-2024 Natriuretic peptide B (Bld) [Mass/Vol]20 pg/mLNormal5 - 80 pg/mLCORNERSTONE [facility] HemeManSS COAGULATIONOrdered By: Liv John on 69-47-0654zPWQ Coag (PPP) [Time]31.4 s Ajayaa42.1 - 36.5 second(s)[facility] Auto CoagComment on above:Interpretive Data: Parameter 15 days - 4 weeks 1 - [...] the same coagulation reagent and instrumentation as [facility]. Currently there are no coagulation studies available worldwide for children to 14 days, andno normal ranges. Heparin therapeutic range (represented by Anti-Factor Xa activity of 0.2 - 0.4 U/mL) corresponds to PTT of 56.6 - 109.0 sec.INR Coag (PPP) [Relative time]0.96 {INR}Invalid Interpretation CodeCORNERSTONE SPECIAL[facility] Auto CoagComment on above:Interpretive Data: INR results are specifically intended to assess patients stabilized on long-term Anticoagulation therapy suggested INR s Less Intensive Anticoagulation 2.0 3.0 Conventional Range 3.0 4.5PT Coag (PPP) [Time]10.7 sNormal9.4 - 12.5 second(s) [facility] Auto CoagComment on above:Interpretive Data: 15 days - 4 weeks 1 - [...] the same coagulation reagent and instrumentation as [facility]. Currently there are no coagulation studies available worldwide for children to 14 days, andno normal ranges.Capillary Glucose POCon 89-52-1152Monciau [Mass/Vol]157 mg/dLHigh 55-99[facility] HospitalComment on above:Result Comment: Notified RN/MD Performed By: #### [id number] #### [facility] [address] [place] [address]Qhqrkcx [Mass/Vol]87 mg/fNXkqdcn95-07KemeozWooster Community HospitalComment on above:Result Comment: Notified RN/MDPerformed By: #### [id number] #### [facility] [address] [place] [id number] Clinical Summaryon [id number] Clinical SummaryED Clinical Summary [address] [address] ED Clinical Summary Person Information Name: CARMEN BLEDSOE/[facility] Age: 64 Years : 1960 Sex: Female Language: Gabonese PCP: Nigel MSN, HEEL COVER SOFTENER[employer], [place] Marital Status: Single Visit Id: Visit Reason: Wheezing; Shortness of breath; Edema; cp, sob, swelled feet and legs Speciality: Acuity: 2 Enc Type: Inpatient Med Service: Medical Arrival: 12/27/2024 10:31:36 Discharge: LOS: 000 04:47 Checkin: 12/27/2024 10:31:36 Checkout: 12/27/2024 15:18:27 Dispo Type: Admitted as IP to this [facility] EVENTS: Event Name Event Status Request [...] 12/27/2024 14:13:03 [place] Request 12/27/2024 14:13:45 ADDRESS: [facility] [place] [id number] PHYS DOC NOTES: MEDICAL INFORMATION: Prescriptions Given: [...] Refills: 0. Misc Pr (more content not included)...NormalFisher Castle Rock Medical CenterED Note-Physicianon [id number] Note-PhysicianED Note-Physician Basic Information Time Seen: Mendez SpainWhit [...] week her shortness of breath has gotten worse.The patient states she gets short of breath with laying down flat. The patient states she sleeps yvonne recliner now because of the shortness of breath. The patient states she has been having swelling on her leg that is getting worse. She is seen her primary doctor who increased her Lasix to 40 mg twice a day. The patient states her primary doctor 3 days ago prescribed antibiotic for the cellulitisof her leg. The patient reports some dry [...] wheezes, respirations demonstrate accessory muscle use, breath soundsequal Gastrointestinal: soft, non distended, no tenderness, no [...] of Problems Differential Diagnosis: [] [facility] Data External documents reviewed: [] My [...] 12/27/24 12:52:00 EDT, STAT, (more content not included)...[facility] SystemComment on above:Result Comment: Electronically Signed By: Mendez Spain, Whit Thurman\.br\Date and Time Signed: 12/27/2512:59 EDTED Patient Education Noteon [id number] Patient Education NoteED Patient Education NoteNoOhioHealth [facility] Patient Summaryon [id number] Patient SummaryED Patient Summary [place] [id number] Patient Discharge Instructions Person Information Name: CARMEN BLEDSOE Age: 64 Years Arrival Date: 12/27/2024 10:31:36 Discharge Diagnosis: 1:Acute on chronic heart failure with preserved ejection fraction; 2:COPD withacute exacerbation; 3:Cellulitis of leg; 4:Elevated troponin; 5:Alcohol abuse, in remission; 6:Non-insulin dependent type 2 diabetes mellitus; 7:Morbid obesity with BMI of 50.0-59.9, adult; 8:Obstructive sleep apnea; 9:Severe major depression; 10:GERD (gastroesophageal reflux disease); Body mass index [BMI] 50.0-59.9, adult Primary Care Physician: Nigel SMITH, HEEL COVER SOFTENER-[employer], [place] Provider Information Primary Provider: Whit Simms M.D. Advanced Battery Filler:None The exam and treatment you received in the Emergency Department were for an urgent problem and are not intended as complete care. It is important that you follow up with a doctor, nurse practitioner,or physician???s store administrative assistant for ongoing care. If your symptoms become worse or you do not improve asexpected and you are unable to reach your [...] opioids can be used to help relieve zpyrqqtg-ci-ywxvnb pain and are often prescribed following a [...] and Drug Administration (www (more content not included)...[facility] SystemHEMATOLOGYOrdered By: SYSTEM SYSTEM on 99-00-1660Ismnvdsyd/100 WBC (Bld)0.8 %Normal0.0 - 2.0 %Remisol HemeBasophils/Leukocytes Auto (Bld) [Pure # fraction]0.1 E9/LNormal0.0 - 0.2 E9/LRemisol HemeEosinophils (Bld) [#/Vol]0.1 E9/LNormal0.0 - 0.5 E9/LRemisol HemeEosinophils/100 WBC (Bld)1.0 %Normal0.0 - 8.0 %Remisol HemeErythrocyte distribution width (RBC) [Ratio]15.6 %High10.9 - 14.2 %Remisol HemeHematocrit (Bld) [Volume fraction]37.2 %Lxlxmk45.0 - 46.0 %Remisol HemeHemoglobin (Bld) [Mass/Vol]13.2 g/bNEynwpp25.0 - 16.0 gm/dLRemisol HemeLymphocytes (Bld) [#/Vol] 0.9 E9/LLow1.0 - 4.0 E9/LRemisol HemeLymphocytes/100 WBC (Bld)12.1 %Low14.0 - 50.0 %Remisol HemeMCH (RBC) [Entitic mass]32.2 ocYehwuw23.0 - 34.0 pgRemisol HemeMCHC (RBC) [Mass/Vol]35.5 g/sEZelcwq61.4 - 36.0 gm/dLRemisol HemeMCV (RBC) [Entitic vol]90.8 iYHrvnfu13.0 - 100.0 fLRemisol HemeMonocytes (Bld) [#/Vol]0.4 E9/LNormal0.2 - 1.0 E9/LRemisol HemeMonocytes/100 WBC (Bld)5.3 %Normal4.0 - 14.0 %Remisol HemeNeutrophils (Bld) [#/Vol]5.8 E9/LNormal2.0 - 7.5 E9/LRemisol Heme Neutrophils/100 WBC (Bld)80.8 %High36.0 - 75.0 %Remisol HemePlatelet mean volume (Bld) [Entitic vol]7.2 fLNormal6.4 - 10.8 fLRemisol HemePlatelets (Bld) [#/Vol] 240.0 E9/DKtarje786.0 - 500.0 E9/LRemisol HemeRBC (Bld) [#/Vol]4.1 E12/LLow4.3 - 5.9 E12/LRemisol HemeWBC corrected for nucl RBC Auto (Bld) [#/Vol]7.2 E9/L Normal4.0 - 11.0 E9/LRemisol HemeHep Func Panelon 36-91-2829Xmtvuln [Mass/Vol] 4.3 g/dLNormal3.3-5.0[facility] HospitalComment on above:Performed By: #### [id number] #### [facility] [address], [place] [address]Lwyxrki/Globulin [Mass ratio]1.4 {ratio}Normal1.1-2.2FWilson Memorial HospitalComment on above:Performed By: #### [id number] #### [facility] [address], [place] [address]Yri Phos62 Int._Unit/YTnxeij94-66PoauuqWooster Community Hospital Comment on above:Performed By: #### [id number] #### [facility] [address], [place] [address]CWF22 Int._Unit/LNormal6-46[facility] HospitalComment on above:Performed By: #### [id number] #### [facility] [address], [place] [address]ISG39 Int._Unit/LNormal5-43[facility] HospitalComment on above:Performed By: #### [id number] #### [facility] [address], [place] [address]Omrf Direct0.1 mg/dLNormal0.0-0.4FWilson Memorial Hospital Comment on above:Performed By: #### [id number] #### [facility] [address], [place] [address]Etoh Indirect0.3 mg/dLNormal0.1-0.9[facility] Comment on above:Performed By: #### [id number] #### [facility] [address], [place] [address]Qoim Total0.4 mg/dLNormal0.0-1.1FWilson Memorial Hospital Comment on above:Performed By: #### [id number] #### [facility] [address], [place] [address]Rgspjnmr (S) [Mass/Vol]3.0 g/dLNormal1.4-4.0[facility] HospitalComment on above:Performed By: #### [id number] #### [facility] [address], [place] [address]Bhsbpya [Mass/Vol]7.3 g/dLNormal6.0-7.8[facility] HospitalComment on above:Performed By: #### [id number] #### [facility] [address], [place] [address]Ztpkcjhioznscpyal Note - Case Manageron 12-27-2024 Interdisciplinary Note - Case ManagerInterdisciplinary Note - Mental Health Social Worker CRM did chart review Patient was just admitted this afternoon CRM will round for DC needs on 12/28NormalWooster Community HospitalComment on above:Result Comment: Electronically Signed By: Clara Gold\.br\Date and Time Signed: 12/27/24 16:41 EDTLactic Acidon 31-88-4076Envheh Acid Lvl1.2 mmol/L Normal0.5-2.2FWilson Memorial HospitalComment on above:Performed By: #### [id number] #### [facility] [address], [place] [address]Hf Panel InformationOrdered By: ANGPROCESSSERVER MICROBIOLOGY on 83-77-9575Nvdmc Culture CharcoalNo growth at 2 days. Final to follow at 7 days.[facility] HospitalBlood Culture CharcoalNo growth at 2 days. Final to follow at 7 days.[facility] HospitalPT & PTTon 15-03-5604PAD Coag (PPP) [Relative time]0.96 {INR}Invalid Interpretation CodeWooster Community HospitalComment on above:Result Comment: INR results are specifically intended to assess patients stabilized on long-term Anticoagulation therapy suggested INR???s ???Less Intensive Anticoagulation??? 2.0 ??? 3.0 Conventional Range 3.0 ??? 4.5Performed By: #### [id number] #### [facility] [address], [place] [address]NC71.7 second(s)Normal9.4-12.5FWilson Memorial Hospital Comment on above:Result Comment: 15 days - 4 weeks 1 - [...] the same coagulation reagent and instrumentation as [facility]. Currently there are no coagulation studies available worldwide for children to 14 days, andno normal ranges.Performed By: #### [id number] #### [facility] [address], [place] [address]IDR39.4 second(s)Ldeogx63.1-36.5FWilson Memorial Hospital Comment on above:Result Comment: Parameter 15 days - 4 weeks 1 - [...] the same coagulation reagent and instrumentation as [facility]. Currently there are no coagulation studies available worldwide for children to 14 days, andno normal ranges. Heparin therapeutic range (represented by Anti-Factor Xa activity of 0.2 - 0.4 U/mL) corresponds to PTT of 56.6 - 109.0 sec.Performed By: #### [id number] #### [facility] [address], [place] [address]Msrjojmbkuvrcyl 80-46-3869Nfjmxntqmetjw.08 ng/mLNormal.00-.50 [facility] HospitalComment on above:Result Comment: <0.5 ng/mL Low risk of severe [...] to retest PCT within 6 to 24 hours.Performed By: #### [id number] #### [facility] [address] [place], [place] [address]Respiratory Panel by PCRon 29-05-1672NxpdojgrogRus detected NormalWooster Community HospitalComment on above:Result Comment: Testing was performed using nucleic acid amplification including Influenza A, Influenza A H1, Influenza A H3, Influenza B, RSV A, RSV B, Adenovirus, Human Metapneumovirus, Parainfluenza 1,2,3, and 4, Rhinovirus, Bordetella parapertussis/bronchiseptica, Bordetella holmesii, and Bordetella pertussis. Performed By: #### [id number] #### [facility] [address] [place] [address]. holmesiiNot detectedNormalWooster Community HospitalComment on above:Performed By: #### [id number] #### [facility] [address] [place] [address]. parapertussis/bronchisepticaNot detectedNormalNot Detected [facility] HospitalComment on above:Performed By: #### [id number] #### [facility] [address] [id number]. pertussisNot detectedNormalNot DetectedWooster Community HospitalComment on above:Performed By: #### [id number] #### [facility] [address] [place], [place] [id number] MetapneumovirusNot detectedNormalWooster Community HospitalComment on above:Result Comment: This test result should be correlated with clinical presentations and medical history by a healthcare provider to determine its clinical significance.Performed By: #### [id number] #### [facility] [address], [place] [address]Vjsqjdazc ANot detectedNormalFisher [facility] Samaritan HospitalComment on above:Performed By: #### [id number] #### [facility] [address], [place] [address]Bvznxqudk A (subtype H1)Not detectedNormalFisher [facility] Samaritan HospitalComment on above:Performed By: #### [id number] #### [facility] [address], [place] [address]Crnsjspcf A (subtype H3)Not detectedNormalFisher [facility] Samaritan HospitalComment on above:Performed By: #### [id number] #### [facility] [address], [place] [address]Fhsglwooq BNot detectedNormalFisher [facility] Samaritan HospitalComment on above:Performed By: #### [id number] #### [facility] [address], [place] [address]Kimqwhxrjahbw 1Not detectedNormalW[facility]oster Community Hospital Comment on above:Performed By: #### [id number] #### [facility] [address], [place] [address]Tbyvomzkcvsiq 2Not detectedNormalFormerly Memorial Hospital [facility] Countyer [facility] Comment on above:Performed By: #### [id number] #### [facility] [address], [place] [address]Ydxkgpwatsgos 3Not detectedNormalFormerly [facility] Hospital [facility] Countyer [facility] Comment on above:Performed By: #### [id number] #### [facility] [address], [place] [address]Byvssxyorqmvj 4Not detectedNormalFormerly [facility] Countyer [facility] Comment on above:Performed By: #### [id number] #### [facility] [address], [place] [address]Yqty Panel Intrl QCPassNormalFisher [facility]ilango Medical CenterComment on above:Performed By: #### [id number] #### [facility] [address] [place] [address]ApfxsfrbreJtd detectedNoCleveland Clinic Avon HospitalComment on above:Performed By: #### [id number] #### [facility] [address] [place] [address]ZNB ANot detectedNormVeterans Health AdministrationComment on above:Performed By: #### [id number] #### [facility] [address] [place] [address]YPG BNot detectedNormVeterans Health AdministrationComment on above:Performed By: #### [id number] #### [facility] [address] [place] [address]SBR With T4fr Reflexon 50-13-8075HFI Qn2.71 m[IU]/LNormal 0.34-5.60[facility] HospitalComment on above:Performed By: #### [id number] #### [facility] [address] [place] [address]Ikrapzcc 0 Hr.on 34-27-6623Flgucxhp HS32.40 pg/mLHigh 10.10-27.10W[facility] HospitalComment on above:Result Comment: The 95% CI (Confidence Interval) PPV (Positive Predictive Value) for myocardial infa rction in females is 38 pg/mL, in males 51 pg/mL. The results should be used in conjunction with clinical conditions of myocardial infarction. (Access High Sensitivity Troponin I Instructions For Use, [employer]митр[employer], February 2018)Performed By: #### [id number] #### [facility] [address] [place] [address]Hivolypc 1 Hr.on 39-59-7665Phracauv HS28.80 pg/mLHigh 10.10-27.10W[facility] HospitalComment on above:Order Comment: 1143Result Comment: The 95% CI (Confidence Interval) PPV (Positive Predictive Value) for myocardial infarction in females is 38 pg/mL, in males 51 pg/mL. The results should be used in conjunction with clinical conditions of myocardial infarction. (Access High Sensitivity Troponin I Instructions For Use, [employer], February 2018)Performed By: #### [id number] #### [facility] [address], [place] [address]Feknkjqu 3 Hr.on 01-03-5783Yragihxf HS28.80 pg/mLHigh 10.10-27.10[facility] HospitalComment on above:Result Comment: The 95% CI (Confidence Interval) PPV (Positive Predictive Value) for myocardial infa rction in females is 38 pg/mL, in males 51 pg/mL. The results should be used in conjunction with clinical conditions of myocardial infarction. (openPeople High Sensitivity Troponin I Instructions For Use, [employer], February 2018)Performed By: #### [id number] #### [facility] [address], [place] [address]Ppgnwwkc 6 Hr.on 89-97-1011Jecfqvqr HS27.70 pg/mLHigh 10.10-27.10[facility] HospitalComment on above:Result Comment: The 95% CI (Confidence Interval) PPV (Positive Predictive Value) for myocardial infa rction in females is 38 pg/mL, in males 51 pg/mL. The results should be used in conjunction with clinical conditions of myocardial infarction. (openPeople High Sensitivity Troponin I Instructions For Use, [employer], February 2018)Performed By: #### [id number] #### [facility] [address], [place] [address]IY Chest Single Viewon [id number] Chest Single ViewExam Date/Time: 12/27/2024 11:06 EDT Reason for Exam: Difficulty breathing Report IMPRESSION: No acute findings by portable radiography. EXAMINATION/TECHNIQUE: XR Chest Single View HISTORY: Difficulty breathing. [...] Sathya Christianson MD Transcribed by: KARSTEN Technologist: MAKormalWooster Community HospitaleGFRon 59-81-7810dXEB29 mL/min/1.73 j3Padbbe>=59[facility] Community HospitalComment on above:Performed By: #### [id number] #### [place] [facility] [address], [place] [address]Znofyowaer Visit Summaryon 38-69-0707Ttqkplnmqp Visit Summary Ambulatory Visit Summary CARMEN BLEDSOE :1960 Visit Date:12/19/2024 Ambulatory Visit Instructions Your Diagnosis Type 2 diabetes mellitus with morbid obesity Shortness of breath on exertion Benign hypertension Chronic insomnia Heart failure with preserved ejection fraction Obstructive sleep apnea History of alcohol abuse Morbid obesity with BMI of 50.0-59.9, adult BMI 50.0-59.9, adult Your Care Team Attending Physician - Nigel SMITH, HEEL COVER SOFTENER-[place] VILLATORO Primary Care Physician - Nigel SMITH, HEEL COVER SOFTENER-DRAPERY HEMMER AUTOMATICParis This Is Your Medications List Contact prescribing [...] oral tablet) fluoxetine (FLUoxetine 20 mg Cap) fluticasone-salmeterol (Advair Diskus 250 mcg-50 mcg inhalation powder) furosemide (furosemide 40 mg Tab) gabapentin (gabapentin 300 mg Cap) glipiZIDE (glipiZIDE 2.5 mg ER Tab) pantoprazole (Pantoprazole [address] Tab) potassium chloride (potassium chloride 20 mEq ER Tab) rosuvastatin (Crestor 40 mg Tab) spironolactone (spironolactone 25 mg Tab) Procedures Performed Colonoscopic polypectomy (12/23/2023), Colonoscopy (03/17/2020), Eye/lens implant bilat, Knee replacement, L foot bunion/reconstruction. Discharge Vitals Heart Rate (Peripheral) 72 Respiratory Rate 18 Blood Pressure 140/82 Height 168 cm Height 66 in Weight 164.3 kg Weight 362.219 lb BMI 58.21 What to do next Scheduled Follow-Up Appointments Tuesday 2:00 PM EDT With: Rick Hernandez PA-C Where: [facility] Tuesday 1:40 PM EDT With: Nigel SMITH, Paris ESPINO Where: [facility] [address] [id number]- You Need to Schedule the Following Appointments Follow Up with Nigel SMITH, SRINIVAS, Paris Hamilton When: In 2 weeks Comments: chronic care Where: [address] [place] [phone] You Need to Complete the Following Microalbumin Level Urine, Urine, Routine collect, 12/19/24, Order for future visit, Nurse collect, Type 2 diabetes mellitus with morbid obesity Shortness of breath on exertion Benign hypertension Chronic insomnia Heart failure with preserved ejection fraction Obstruc... Urine Microalbumin/Creatinine Ratio, Urine, Routine collect, 12/19/24, Order for [...] prescribing physician if questions or concerns Unchanged fluticasone-salmeterol (Advair Diskus 250 mcg-50 mcg inhalation powder) 1 Puffs Inhalation 2 times a day Duration: 30 Days Contact prescribing physician if questions or concerns Unchanged furosemide (furosemide 40 mg Tab) 1 Tablets By Mouth Every day Peripheral edema Contact prescribing physician if questions or concerns Unchanged gabapentin (gabapentin 300 mg Cap) 1 Capsules 3 times a day Contact prescribing physicianif questions or concerns Unchanged glipiZIDE (glipiZIDE 2.5 mg ER Tab) 1 Tablets By Mouth Every day Contact prescribing physician if questions or concerns Unchanged Misc Prescription (Alcohol wipes) See instructions Use to check BS daily dx E11.9 Contactprescribing physician if questions or concerns Unchanged Misc Prescription (Glucometer) See instructions Glucometer to test BS TID and PRN dx E11.9 Contact prescribing physician if questions or concerns Unchanged Misc Prescription (Lancets) See instructions Use to check BS daily dx E11.9 Contact prescribing physician if questions or concerns Unchanged Misc Prescription (Nebulizer Machine) See instru (more content not included)...[facility] Health SystemCHEMISTRYOrdered By: SYSTEM SYSTEM on 81-69-3734Iehzksv [Mass/Vol]4.4 g/dLNormal3.3 - 5.0 gm/dLRemisol Chem Albumin/Globulin [Mass ratio]1.5 {ratio}Normal1.1 - 2.2Remisol ChemALP [Catalytic activity/Vol]60 [iU]/pMmkokt18 - 98 Int._Unit/LRemisol ChemALT No additional P-5'-P [Catalytic activity/Vol]31 [iU]/dNormal6 - 46 Int._Unit/L Remisol ChemAnion gap [Moles/Vol]13 mmol/LNormal6 - 16 mEq/LRemisol ChemAST [Catalytic activity/Vol]29 [iU]/dNormal5 - 43 Int._Unit/LRemisol ChemBilirubin [Mass/Vol]0.4 mg/dLNormal0.0 - 1.1 mg/dLRemisol ChemCalcium [Mass/Vol]9.4 mg/dL Normal8.9 - 11.1 mg/dLRemisol ChemChloride [Moles/Vol]95 mmol/YAan228 - 111 mmol/LRemisol ChemCO2 [Moles/Vol]30 mmol/LWnqodn27 - 31 mmol/LRemisol Chem Creatinine [Mass/Vol]0.7 mg/dLNormal0.5 - 1.3 mg/dLRemisol ChemGFR/1.73 sq M.predicted MDRD (S/P/Bld) [Vol rate/Area]98 mL/min/1.73 l2Nayuci>=59mL/min/1.73 d7Inqoorp ChemGlobulin (S) [Mass/Vol]2.9 g/dLNormal1.4 - 4.0 gm/dLRemisol Chem Glucose [Mass/Vol]88 mg/mIHjnoul48 - 199 mg/dLRemisol ChemPotassium [Moles/Vol] 4.0 mmol/LNormal3.5 - 5.3 mmol/LRemisol ChemProtein [Mass/Vol]7.3 g/dLNormal6.0 - 7.8 gm/dLRemisol ChemSodium [Moles/Vol]134 mmol/RRgu073 - 145 mmol/LRemisol ChemUrea nitrogen [Mass/Vol]8 mg/dLNormal5 - 21 mg/dLRemisol ChemUrea nitrogen/Creatinine [Mass ratio]11 mg/ymBdmdmk94 - 20Remisol ChemCHEMISTRY Ordered By: Katya Preciado on 66-78-5649IvG2s (Bld) [Mass fraction]6.1 %High <=5.9%[facility] ChemAutoSSCMPon 53-69-7992Esxypvq [Mass/Vol]4.4 g/dLNormal3.3-5.0 [facility] HospitalComment on above:Performed By: #### [id number] #### [facility] [address], [place] [address]Quajqgx/Globulin [Mass ratio]1.5 {ratio}Normal1.1-2.2FWilson Memorial HospitalComment on above:Performed By: #### [id number] #### [facility] [address], [place] [address]Pup Phos60 Int._Unit/DFkstbq60-48ByuewyWooster Community Hospital Comment on above:Performed By: #### [id number] #### [place] [facility] [address], [place] [address]HHJ65 Int._Unit/LNormal6-46[facility] HospitalComment on above:Performed By: #### [id number] #### [place] [facility] [address], [place] [address]Vphaz gap [Moles/Vol]13 mmol/LNormal6-16[facility] HospitalComment on above:Performed By: #### [id number] #### [facility] [address], [place] [address]JZP66 Int._Unit/LNormal5-43[facility] HospitalComment on above:Performed By: #### [id number] #### [facility] [address], [place] [address]Oitr Total0.4 mg/dLNormal0.0-1.1FWilson Memorial Hospital Comment on above:Performed By: #### [id number] #### [facility] [address], [place] [address]UKE/Creat Ratio11 No ZlvemLdwxmz22-21TufspvWooster Community HospitalComment on above:Performed By: #### [id number] #### [facility] [address], [place] [address]Cdgajkq [Mass/Vol]9.4 mg/dLNormal8.9-11.1FWilson Memorial HospitalComment on above:Performed By: #### [id number] #### [facility] [address], [place] [address]Oynkaiij [Moles/Vol]95 mmol/HNho629-277XvohnsWooster Community HospitalComment on above:Performed By: #### [id number] #### [facility] [address], [place] [address]FZ4 [Moles/Vol]30 mmol/UFygxzg10-68HanynnWooster Community Hospital Comment on above:Performed By: #### [id number] #### [facility] [address], [place] [address]Wgenpccfve [Mass/Vol]0.7 mg/dLNormal0.5-1.3FWilson Memorial HospitalComment on above:Performed By: #### [id number] #### [facility] [address], [place] [address]Ioqtqnyk (S) [Mass/Vol]2.9 g/dLNormal1.4-4.0[facility] HospitalComment on above:Performed By: #### [id number] #### [facility] [address], [place] [address]Noyfcoi [Mass/Vol]88 mg/gULzvxmg64-644GmgwcrWooster Community HospitalComment on above:Performed By: #### [id number] #### [facility] [address] [place] [address]Vtbnpxdfy [Moles/Vol]4.0 mmol/LNormal3.5-5.3FWilson Memorial HospitalComment on above:Performed By: #### [id number] #### [facility] [address], [place] [address]Ppbagla [Mass/Vol]7.3 g/dLNormal6.0-7.8[facility] HospitalComment on above:Performed By: #### [id number] #### [facility] [address], [place] [address]Fxuspv [Moles/Vol]134 mmol/XNoh247-260GlvlsuWooster Community HospitalComment on above:Performed By: #### [id number] #### [facility] [address], [place] [address]Wkik nitrogen [Mass/Vol]8 mg/dLNormal5-21[facility] HospitalComment on above:Performed By: #### [id number] #### [facility] [address], [place] [address]Fkrtvr Medicine Office/Clinic Noteon 21-89-3665Uxykmr Medicine Office/Clinic NoteFamily Medicine Office/Clinic Note Chief Complaint Patient presents [...] cataract surgery Foot exam: 08/10/2023 done by Ladonna VILLATORO A1c: Hgb A1C %: 5.7 % [...] pressure. Impaired diastolic relaxation. List of Providers: Assessment Technician: Rick Hernandez PA-C Catering Chef: Dr Phillip Orthopaedics: Dr Martinez LABS Cr/eGFR: [...] High (07/13/24 11:18:00) Future Appointments [facility]. Date: 01/01/2025 2:00 PM Scheduled Provider: [place], [address] Phone: [phone] Fax: [phone] The patient is presenting with shortness of [...] sores and possibly loss of l (more contentnot included)...[facility] Health SystemComment on above:Result Comment: Electronically Signed By: Nigel MSN, HEEL COVER SOFTENER-DRAPERY HEMMER AUTOMATICParis\.br\Date and Time Signed: 12/19/24 16:05 YVRGmjV0xvs 51-62-4942NnO7u (Bld) [Mass fraction]6.1 %High<=5.9[facility] HospitalComment on above: Performed By: #### [id number] #### [place] [facility] [address], [place] [address]DY Chest 2 Viewson [id number] Chest 2 ViewsExam Date/Time: 12/19/2024 13:31 EDT Reason for Exam: Shortness of breath (SOB) Report IMPRESSION: NO RADIOGRAPHIC EVIDENCE OF ACTIVE DISEASE IN THE CHEST. CLINICAL INFORMATION: Shortness of breath (SOB) COMPARISON: None available. FINDINGS: Two views of the chest were obtained. Heart and mediastinum appear normal. The lungs appear clear. Visualized bony thorax and remainder of the chest appears unremarkable. Ordering Provider: Paris Rust FINAL REPORT Dictated: 12/19/2024 1:34 pm Mark Stevens MD Signed (Electronic Signature): 12/19/2024 1:34 pm Signed by: Mark Stevens MD Transcribed by: KARSTEN Technologist: TLZNBlanchard Valley Health System Bluffton HospitaleGFRon 46-11-6833bOZR88 mL/min/1.73 k3Psenaw>=59Fisher [facility] Samaritan HospitalComment on above:Performed By: #### [id number] #### [place] [facility] [address] [place], [place] [address]Opaddxkzfo Visit Summaryon 06-04-4192Siqdckcstt Visit Summary Ambulatory Visit Summary CARMEN BLEDSOE :1960 Visit Date:11/27/2024 Ambulatory Visit Instructions Your Diagnosis Type 2 diabetes mellitus with morbid obesity Bilateral leg edema Shortness of breath on exertion Alcohol problem drinking Cigarette smoker Morbid obesity, Morbid (severe) obesity due to excess calories BMI 50.0-59.9, adult Your Care Team Attending Physician - Nigel SMITH, [place] ESPINO Primary Care Physician - Nigel SMITH, [place] ESPINO This Is Your Medications List albuterol (Albuterol (Eqv-Ventolin HFA) 90 mcg/inh inhalation aerosol) fluticasone-salmeterol (Advair Diskus 250 mcg-50 mcg inhalation powder) [...] implant bilat, Knee replacement, L foot bunion/reconstruction. Discharge Vitals Heart Rate (Peripheral) 86 Respiratory Rate 18 Blood Pressure 122/88 Height 168 cm Height 66 in Weight 159.8 kg Weight 352.298 lb BMI 56.62 What to do next Scheduled Follow-Up Appointments Tuesday 12:40 PM EDT With: Nigel SMITH, Paris ESPINO Where: [facility] [address] [place] [address]- Tuesday 2:00 PM EDT With: Rick Hernandez PA-C Where: [facility] [place] You Need to Schedule the Following Appointments Follow Up with Nigel SMITH, Paris ESPINO When: Only if needed Where: [address] [place] [phone] Medications What How Much When Why Instructions New albuterol (Albuterol (Eqv-Ventolin HFA) 90 mcg/ inh inhalation aerosol) 2 Puffs Inhalation Every 6 hours as needed for Shortness of breath or wheezing Refills: 3 Pickup at [facility] #[id number] New fluticasone-salmeterol (Advair Diskus 250 mcg-50 mcg inhalation powder) 1 Puffs Inhalation 2 times a day Duration: 30 Days Pickup at [facility] #41097 Unchanged glipiZIDE (glipiZIDE 2.5 mg ER Tab) 1 Tablets By Mouth Every day [facility] Unchanged rosuvastatin (Crestor 40 mg Tab) 1 Tablets By Mouth Every day Mixed hyperlipidemia [id number] Unchanged aripiprazole (Abilify 5 mg Tab) 1 Tablets By Mouth Every day Contact prescribing physician if questions or concerns Unchanged dulaglutide (Trulicity Pen 3 mg/ 0.5 mL subcutaneous solution) 3 Milligram Subcutaneous Every week Type 2 diabetes mellitus with morbid obesity Contact prescribing physician if questions orconcerns Unchanged empagliflozin (Jardiance 10 mg oral tablet) [...] Capsules 3 times a day Contact prescribing physicianif questions or concerns Unchanged Misc Prescription (Alcohol wipes) See instructions Use to check BS daily dx E11.9 Contactprescribing physician if questions or concerns Unchanged Misc [...] Every day Contact prescr (more content not included)...[facility] Medicine Office/Clinic Noteon [id number] Medicine Office/Clinic NoteFami Medicine Office/Clinic Note Chief Complaint The patient presents for management of obesity-related complications and assessment of respiratory symptoms. HPI Staff C/O: Edema Onset: 2 weeks ago mainly at night Location: paula feet and lower legs Symptoms: increased SOB [...] to her obesity has prompted asthma management withalbuterol, though pulmonary function testing is pending, particularly vital for impending bariatricsurgery. Current inadequate insurance coverage creates hurdles in [...] medical options pending insurance approval for the [facility]. Preparation for potential bariatric intervention continues with [...] again. Will continue following up with the excavation laborer. Ordered: Current tobacco smoker 1034F Depression Screening [...] that time she is already seeing the culture room worker and they have ordered the PFT if [...] (F10.90: Alcohol u (more content not included)... [facility] SystemComment on above:Result Comment: Electronically Signed By: Nigel SMITH, Paris ESPINO\.br\Date and Time Signed: 11/27/24 17:35 EDTAmbulatory Visit Summaryon [id number] Visit SummaryAmbulatory Visit Summary CARMEN BLEDSOE :1960 Visit Date:09/12/2024 Ambulatory Visit Instructions Your Diagnosis Type 2 diabetes mellitus with morbid obesity Benign hypertension Heart failure with preserved ejection fraction Mixed hyperlipidemia Obstructive sleep apnea Bilateral leg edema Alcohol problem drinking Cigarette smoker Morbid obesity BMI 50.0-59.9, adult Medication management Your Care Team Attending Physician - Nigel SMITH, Paris ESPINO Primary Care Physician - Nigel SMITH, Paris ESPINO This Is Your Medications List Misc [...] mg Cap) fluoxetine (FLUoxetine 20 mg Cap) fluticasone-salmeterol (Advair Diskus 100 mcg-50 mcg inhalation powder) [...] implant bilat, Knee replacement, L foot bunion/reconstruction. Discharge Vitals Temperature (Temporal Artery) 36.6 ???C Heart Rate (Peripheral) 78 Respiratory Rate 20 Blood Pressure 136/84 Height 168 cm Height 66 in Weight 154.1 kg Weight 339.732 lb BMI 54.6 What to do next Scheduled Follow-Up Appointments Tuesday 11:00 AM EDT With: Rick Hernandez PA-C Where: [facility] [place] Tuesday 12:40 PM EDT With: Nigel SMITH, DARLEEN-Paris VILLATORO Where: [facility] [address] [place] [address]- You Need to Schedule the Following Appointments Follow Up with Nigel SMITH, Paris ESPINO When: In 3 months Comments: chronic care Where: [address] [place] [phone] Someone Will Contact You Regarding These Appointments [facility] [place], Surgery, [facility], 09/12/24 13:11:00 EDT, Morbid obesity BMI 50.0-59.9, adult Type 2 diabetes mellitus with morbid obesity Benign hypertension Obstructive sleep apnea Medications What How Much When Why Instructions Unchanged albuterol (albuterol 0.083% Inh Rochelle 3 mL) 3 Milliliter Inhalation Every 6 hours as neededfor Shortness of breath or wheezing Unchanged albuterol [...] 2 Capsules By Mouth Every day Unchanged fluticasone-salmeterol (Advair Diskus 100 mcg-50 mcg inhalation powder) [...] Mouth Once a day (in the evening) Moderatepersistent asthma Unchanged pantoprazole (Pantopr (more content not included)...[facility] SystemCHEMISTRYOrdered By: SYSTEM SYSTEM on [id number] [Mass/Vol] 4.3 g/dLNormal3.3 - 5.0 gm/dLRemisol ChemAlbumin/Globulin [Mass ratio]1.5 {ratio}Normal1.1 - 2.2Remisol ChemALP [Catalytic activity/Vol]54 [iU]/sNuppdy78 - 98 Int._Unit/LRemisol ChemALT No additional P-5'-P [Catalytic activity/Vol]18 [iU]/dNormal6 - 46 Int._Unit/LRemisol ChemAnion gap [Moles/Vol]11 mmol/LNormal6 - 16 mEq/LRemisol ChemAST [Catalytic activity/Vol]18 [iU]/dNormal5 - 43 Int._Unit/LRemisol ChemBilirubin [Mass/Vol]0.4 mg/dLNormal0.0 - 1.1 mg/dLRemisol ChemCalcium [Mass/Vol]9.1 mg/dLNormal8.9 - 11.1 mg/dLRemisol ChemChloride [Moles/Vol]98 mmol/QObc085 - 111 mmol/LRemisol ChemCO2 [Moles/Vol]27 mmol/L Oqzdjy74 - 31 mmol/LRemisol ChemCreatinine [Mass/Vol]0.7 mg/dLNormal0.5 - 1.3 mg/dLRemisol EgjtgIYI57 mL/min/1.73 q1Tuiaok>=59mL/min/1.73 u3Pkelvfl Chem Globulin (S) [Mass/Vol]2.8 g/dLNormal1.4 - 4.0 gm/dLRemisol ChemGlucose [Mass/Vol]95 mg/tMQgkfmn09 - 199 mg/dLRemisol ChemPotassium [Moles/Vol]4.0 mmol/LNormal3.5 - 5.3 mmol/LRemisol ChemProtein [Mass/Vol]7.1 g/dLNormal6.0 - 7.8 gm/dLRemisol ChemSodium [Moles/Vol]132 mmol/BBso016 - 145 mmol/LRemisol Chem Urea nitrogen [Mass/Vol]12 mg/dLNormal5 - 21 mg/dLRemisol ChemUrea nitrogen/Creatinine [Mass ratio]17 mg/mpFsptpu25 - 20Remisol ChemCMPon 85-52-1040Jwajkrd [Mass/Vol]4.3 g/dLNormal3.3-5.0[facility] Comment on above:Performed By: #### [id number] #### [facility] [address], [place] [address]Msmtkin/Globulin (S) [Mass conc ratio]1.8Dzjdfz4.1-2.2FWilson Memorial HospitalComment on above:Performed By: #### [id number] #### [facility] [address], [place] [address]DIY [Catalytic activity/Vol]54 Int._Unit/ZAwgkau89-72YcywdcWooster Community HospitalComment on above:Performed By: #### [id number] #### [facility] [address], [place] [address]KML No additional P-5'-P [Catalytic activity/Vol]18 Int._Unit/L Normal6-46[facility] HospitalComment on above:Performed By: #### [id number] #### [facility] [address], [place] [address]Ymiyt gap [Moles/Vol]11 mmol/LNormal6-16[facility] HospitalComment on above:Performed By: #### [id number] #### [facility] [address], [place] [address]CAX [Catalytic activity/Vol]18 Int._Unit/LNormal5-43[facility] HospitalComment on above:Performed By: #### [id number] #### [facility] [address], [place] [address]Fhmkfuvyj [Mass/Vol]0.4 mg/dLNormal0.0-1.1FWilson Memorial HospitalComment on above:Performed By: #### [id number] #### [facility] [address], [place] [address]Kfesvwa [Mass/Vol]9.1 mg/dLNormal8.9-11.1FWilson Memorial HospitalComment on above:Performed By: #### [id number] #### [facility] [address], [place] [address]Osennvbw [Moles/Vol]98 mmol/CRnn345-378JznmseWooster Community HospitalComment on above:Performed By: #### [id number] #### [facility] [address], [place] [address]QH0 [Moles/Vol]27 mmol/GFgufzl00-48HtymrdWooster Community Hospital Comment on above:Performed By: #### [id number] #### [facility] [address], [place] [address]Bmxgilkkmn [Mass/Vol]0.7 mg/dLNormal0.5-1.3FWilson Memorial HospitalComment on above:Performed By: #### [id number] #### [facility] [address], [place] [address]Fwvjkmoo (S) [Mass/Vol]2.8 g/dLNormal1.4-4.0[facility] HospitalComment on above:Performed By: #### [id number] #### [facility] [address], [place] [address]Pmjjyfk [Mass/Vol]95 mg/xEQsjorj82-654GfjagtWooster Community HospitalComment on above:Performed By: #### [id number] #### [facility] [address], [place] [address]Mliwlghfj [Moles/Vol]4.0 mmol/LNormal3.5-5.3FWilson Memorial HospitalComment on above:Performed By: #### [id number] #### [facility] [address], [place] [address]Tzozhnm [Mass/Vol]7.1 g/dLNormal6.0-7.8[facility] HospitalComment on above:Performed By: #### [id number] #### [facility] [address], [place] [address]Jnsudw [Moles/Vol]132 mmol/XDwo101-058SstnngWooster Community HospitalComment on above:Performed By: #### [id number] #### [facility] [address], [place] [address]Wkky nitrogen [Mass/Vol]12 mg/dLNormal5-21[facility] HospitalComment on above:Performed By: #### [id number] #### [facility] [address], [place] [address]Wooo nitrogen/Creatinine [Mass ratio]17 No LiyjuJgaipi62-25 [facility] HospitalComment on above:Performed By: #### [id number] #### [facility] [address], [place] [address]Kftmjc Medicine Office/Clinic Noteon [id number] Medicine Office/Clinic NoteFalyman school for boys Medicine Office/Clinic Note Chief Complaint Desire for [...] of the following symptoms? Vision problems? Denies GI-Nausea/committing/bloating? Denies Lightheadedness? Denies Paresthesias, Ulcerations or sores? [...] cataract surgery Foot exam: 08/10/2023 done by Ladonna VILLATORO A1c: Hgb A1C %: 5.7 % [...] pressure. Impaired diastolic relaxation. List of Providers: Assessment Technician: Rick Hernandez PA-C Catering Chef: Dr Phillip Orthopaedics: Dr Martinez LABS Cr/eGFR: [...] High (07/13/24 11:18:00) Future Appointments [facility] Doc Appt. Date: 12/18/2024 11:00 AM Scheduled Provider: Rick Hernandez PA-C [address] [place], [address] Phone: [phone] Fax: [phone] The patient is presenting with concerns surrounding [...] cigarettes and admits to the occasional use ofmarijuana which she acknowledges as contributing to weight gain. Other significant medical history includes Type 2 Diabetes Mellitus, complicated by her current obesity, and poorly managed obstructive sleep apnea due to noncompliance with CPAP. The patient understands the need for comprehensive cardiac clearance due to her history of heart failure with preserved ejection fraction and benign hypertension, as well as her mixed hyperlipidemia,prior to any potential bariatric surgery. Her last cardiac check-up, including stress testing in 2022 and echocardiograms last year, was conducted within the past year. She has reports of shortness of breath with prior diagnostic work-up findings under assessment. Colonoscopy evaluations have showncomplications with polyps, with follow-up procedures pending. Review of Systems PHQ Score Initial Depression Screen Score: 0 SCORE - Cardiovascular: Denies current leg edema; reports history of shortness of breath. - Respiratory: Denies regular use of CPAP machine despite BRENDA diagnosis. - Gastrointestinal: Reports previous colonoscopy with polyps; pending follow-up. - Hematologic/Lymphatic: Denies current e (more content not included)...Normal [facility] HospitalComment on above:Result Comment: Electronically Signed By: Nigel SMITH, HEEL COVER SOFTENER-IRVING, Paris Hamilton\.br\Date and Time Signed: 09/12/24 15:31 EDTeGFRon 61-01-4138mAPC74 mL/min/1.73 i5Keszpq>=59DemarSinai Hospital of BaltimoreComment on above:Performed By: #### [id number] #### [facility] [address], [place] [address]Tvmvuwmi Letteron [id number] LetterProvider Letter September 04, 2024 CARMEN LADI [address] [place] [address] : 1960 Dear Carmen, We have been trying to reach you with no success. Please call us at [phone] in regards to rescheduling your Colonoscopy. Thank you for your prompt attention to this matter. Sincerely, [facility] Cancer CenterAmbulatory Visit Summaryon [id number] Visit SummaryAmbulatory Visit Summary CARMEN BLEDSOE :1960 Visit Date:07/18/2024 Ambulatory Visit Instructions Your Diagnosis Type 2 diabetes mellitus with morbid obesity Alcohol problem drinking Bilateral leg edema Morbid obesity, Morbid (severe) obesity due to excess calories BMI 50.0-59.9, adult Your Care Team Attending Physician - Nigel SMITH, HEEL COVER SOFTENER-Paris VILLATORO Primary Care Physician - Nigel SMITH, HEEL COVER SOFTENER-Paris VILLATORO This Is Your Medications List semaglutide (Ozempic [...] oral tablet) fluoxetine (FLUoxetine 20 mg Cap) fluticasone-salmeterol (Advair Diskus 100 mcg-50 mcg inhalation powder) [...] implant bilat, Knee replacement, L foot bunion/reconstruction. Discharge Vitals Temperature (Temporal Artery) 36.4 ???C Heart Rate (Peripheral) 78 Respiratory Rate 18 Blood Pressure 138/82 Height 168 cm Height 66 in Weight 148.4 kg Weight 327.166 lb BMI 52.58 What to do next Scheduled Follow-Up Appointments Tuesday 1:00 PM EST With: Nigel SMITH, Paris ESPINO Where: [facility] [place] [address] [place] [address]- Tuesday 11:00 AM EST With: Where: [facility] Tuesday 11:00 AM EDT With: Rick Hernandez PA-C Where: [facility] [place] You Need to Schedule the Following Appointments Follow Up with Nigel SMITH, SRINIVAS, Paris Hamilton When: Only if needed Comments: keep next month appt Where: [address] [place] [phone] Medications What How Much When Why Instructions New semaglutide (Ozempic 2 mg/ 3 mL (0.25 mg or 0.5 mg dose) subcutaneous solution) 0.5 Milligram Subcutaneous Every week Type 2 diabetes mellitus with morbid obesity Pickup at [id number] Unchanged albuterol (albuterol 0.083% Inh Rochelle 3 mL) 3 Milliliter Inhalation Every 6 hours as neededfor Shortness of breath or wheezing Contact prescribing [...] prescribing physician if questions or concerns Unchanged fluticasone-salmeterol (Advair Diskus 100 mcg-50 mcg inhalation powder) See instructions Contact prescribing physician if questions or concerns Unchanged furosemide (furosemide 40 mg Tab) 1 Tablets By Mouth Every day Peripheral edema Contact prescribing physician if questions or concerns Unchanged gabapentin (gabapentin 300 mg Cap) 1 Capsules 3 times a day Contact prescribing physicianif questions or concerns Unchanged glipiZIDE (glipiZIDE 2.5 mg ER Tab) 1 Tablets By Mouth Every day Contact prescribing physician if questions or concerns Unchanged Misc Prescription (Alcohol wipes) See instructions Use to check BS daily dx E11.9 Contactprescribing physician if questions or concerns Unchanged Misc Prescription (Glucometer) See instructions Glucometer to test BS TID and PRN dx E11.9 Co (more content not included)...[facility] Medicine Office/Clinic Noteon 23-26-5149Ppeodl Medicine Office/Clinic NoteFalyman school for boys Medicine Office/Clinic Note Chief Complaint The patient presents for the management of Type 2 diabetes mellitus and obesity, with considerationfor altering diabetes medication. HPI Staff C/O: Diarrhea [...] level of 5.7%, suggestive of well-controlled diabetes, yetdev expresses interest in switching from Trulicity to [...] qWeek, # 2 EA, Refills(s) 0, Pharmacy: [id number], 168, cm, 07/18/24 11:59:00 EST, Height/Length Dosing, [...] and/or worsening of chronic underlying disease states. Encouragedto limit sugary drinks, foods high in sodium, [...] by editing. Follow-up With When Contact Information Nigel SMITH, DARLEEN-Paris VILLATORO Only if needed [address] [place] [phone] Additional Instructions: keep next month appt Patient [...] syndrome Right hip p (more content not included)...[facility] Comment on above:Result Comment: Electronically Signed By: Nigel SMITH, HEEL COVER SOFTENER-Paris VILLATORO\.br\Date and Time Signed: 07/18/24 12:22 TTYCfhM9szj 25-87-5857HeA3t (Bld) [Mass fraction]5.7 %Normal<=5.9[facility] HospitalComment on above:Performed By: #### [id number] #### [facility] [address] [place] [address]Rtedvyogkk Visit Summaryon 21-67-0740Uwupqpdqoa Visit Summary Ambulatory Visit Summary CARMEN BLEDSOE :1960 Visit Date:07/13/2024 Ambulatory Visit Instructions Your Care Team Attending Physician - SRINIVAS [...] oral tablet) fluoxetine (FLUoxetine 20 mg Cap) fluticasone-salmeterol (Advair Diskus 100 mcg-50 mcg inhalation powder) [...] implant bilat, Knee replacement, L foot bunion/reconstruction. What to do next Scheduled Follow-Up Appointments Tuesday 12:00 PM EST With: SRINIVAS Pereyra Tammy L. Where: [address] [address]- Tuesday 1:00 PM EST With: SRINIVAS Pereyra Tammy L. Where: [facility] [place] [address] [place] [address]- Tuesday 11:00 AM EST With: Where: [facility] Tuesday 11:00 AM EDT With: Rick Hernandez PA-C Where: [facility] [place] Medications What How Much When Why Instructions Unchanged albuterol (albuterol 0.083% Inh Rochelle 3 mL) 3 Milliliter Inhalation Every 6 hours as neededfor Shortness of breath or wheezing Unchanged albuterol [...] 2 Capsules By Mouth Every day Unchanged fluticasone-salmeterol (Advair Diskus 100 mcg-50 mcg inhalation powder) [...] Mouth Once a day (in the evening) Moderatepersistent asthma Unchanged pantoprazole (Pantoprazole [address] [...] problem that you are (more content not included)...[facility] SystemAmbulatory Visit SummaryAmbulatory Visit Summary CARMEN BLEDSOE :1960 Visit Date:10/18/2018 [...] Your Care Team Primary Care Physician - Nigel MSN, HEEL COVER SOFTENER-DRAPERY HEMMER AUTOMATIC, Paris Hamilton This Is Your Medications List Misc [...] oral tablet) fluoxetine (FLUoxetine 20 mg Cap) fluticasone-salmeterol (Advair Diskus 100 mcg-50 mcg inhalation powder) [...] implant bilat, Knee replacement, L foot bunion/reconstruction. What to do next Scheduled Follow-Up Appointments Tuesday 12:00 PM EST With: Nigel SMITH, DARLEEN-Paris VILLATORO Where: [address] [address]- Tuesday 1:00 PM EST With: Nigel SMITH, DARLEEN-Paris VILLATORO Where: [address] [id number]- Tuesday 11:00 AM EST With: Where: [facility] Tuesday 11:00 AM EDT With: Rick Hernandez PA-C Where: [facility] [place] You Need to Complete the Following Mfmap-7-Rnyefludpuk, Blood, Routine collect, 11/02/23, Order for future visit, Lab Collect, Elevated LFTs, Print Label By Order Location KIM w/Reflex if POS, Blood, Routine collect, 11/02/23, Order for future visit, Lab Collect, Elevated LFTs, Print Label By Order Location Antimitochondrial Antibody, Quantitative, Blood, Routine collect, 11/02/23, Order for future visit,Lab Collect, Elevated LFTs, Print Label By Order Location B-Type Natriuretic Peptide, Blood, Routine collect, 07/11/24, Order for future visit, Lab Collect, Benign hypertension Obstructive sleep apnea BMI 50.0- 59.9, adult Moderate persistent asthma Tubular adenoma of [...] future visit, Lab Collec (more content not included)...NormalW[facility]oster Community HospitalBNPon 21-51-1225Xbg Ctr BNPPassNormalWooster Community HospitalComment on above: Performed By: #### [id number] #### [facility] [address], [place] [address]Obvshrrngif peptide B (Bld) [Mass/Vol]39 pg/mLNormal5-80[facility] HospitalComment on above:Performed By: #### [id number] #### [facility] [address] [place] [address]BEF w/ Auto Diffon 81-98-6657Usjquimwi/100 WBC (Bld)0.7 %Normal 0.0-2.0[facility] HospitalComment on above:Performed By: #### [id number] #### [facility] [address] [place] [address]Gwxtnmnqd/Leukocytes Auto (Bld) [Pure # fraction]0.0 E9/LNormal 0.0-0.2FWilson Memorial HospitalComment on above:Performed By: #### [id number] #### [facility] [address] [place] [address]Gcjihmmkaes (Bld) [#/Vol]0.1 E9/LNormal0.0-0.5FWilson Memorial HospitalComment on above:Performed By: #### [id number] #### [facility] [address] [place] [address]Fjvzooeczor/100 WBC (Bld)1.1 %Normal0.0-8.0[facility] HospitalComment on above:Performed By: #### [id number] #### [facility] [address] [place] [address]Tdjgysmzgwg distribution width (RBC) [Ratio]15.5 %High10.9-14.2 [facility] HospitalComment on above:Performed By: #### [id number] #### [facility] [address] [place] [address]Ulftgydfki (Bld) [Volume fraction]41.1 %Yjsxej90.0-46.0[facility] HospitalComment on above:Performed By: #### [id number] #### [facility] [address] [place] [address]Szrhqdhawm (Bld) [Mass/Vol]14.2 g/vWWskpqe84.0-16.0[facility] HospitalComment on above:Performed By: #### [id number] #### [facility] [address] [place] [address]Inedinuxaiw (Bld) [#/Vol]1.2 E9/LNormal1.0-4.0[facility] HospitalComment on above:Performed By: #### [id number] #### [facility] [address] [place] [address]Ydyzxibdsfl/100 WBC (Bld)18.3 %Hfycgg75.0-50.0[facility] HospitalComment on above:Performed By: #### [id number] #### [facility] [address] [place] [address]CLD (RBC) [Entitic mass]32.3 tnIgvuot87.0-34.0[facility] HospitalComment on above:Performed By: #### [id number] #### [facility] [address] [place] [address]XLSX (RBC) [Mass/Vol]34.5 g/qWNjiibv16.4-36.0[facility] HospitalComment on above:Performed By: #### [id number] #### [facility] [address] [place] [address]KNY (RBC) [Entitic vol]93.7 xOJzwtbc32.0-100.0[facility] HospitalComment on above:Performed By: #### [id number] #### [facility] [address] [place] [address]Wukkxdltw (Bld) [#/Vol]0.4 E9/LNormal0.2-1.0[facility] HospitalComment on above:Performed By: #### [id number] #### [facility] [address] [place] [address]Kuurbfcienh (Bld) [#/Vol]4.8 E9/LNormal2.0-7.5FWilson Memorial HospitalComment on above:Performed By: #### [id number] #### [facility] [address] [place] [address]Myagokputek/100 WBC (Bld)74.5 %Vuqxbv27.0-75.0[facility] HospitalComment on above:Performed By: #### [id number] #### [facility] [address] [place] [address]Upxjnbyn mean volume (Bld) [Entitic vol]8.3 fLNormal6.4-10.8 [facility] HospitalComment on above:Performed By: #### [id number] #### [facility] [address] [place] [address]Pnqyehfdy (Bld) [#/Vol]239.0 E9/GLvcorc442.0-500.0[facility] HospitalComment on above:Performed By: #### [id number] #### [facility] [address] [place] [address]FFZ (Bld) [#/Vol]4.4 E12/LNormal4.3-5.9[facility] HospitalComment on above:Performed By: #### [id number] #### [facility] [address] [place] [address]DMW corrected for nucl RBC Auto (Bld) [#/Vol]6.5 E9/LNormal 4.0-11.0[facility] HospitalComment on above:Performed By: #### [id number] #### [facility] [address] [place] [address]DNQEUHRVZGzrptcz By: SYSTEM SYSTEM on 70-19-7466Tqhvsye [Mass/Vol]4.3 g/dLNormal3.3 - 5.0 gm/dLRemisol ChemAlbumin/Globulin [Mass ratio] 1.3 {ratio}Normal1.1 - 2.2Remisol ChemALP [Catalytic activity/Vol]66 [iU]/d Btbaky56 - 98 Int._Unit/LRemisol ChemALT No additional P-5'-P [Catalytic activity/Vol]23 [iU]/dNormal6 - 46 Int._Unit/LRemisol ChemAnion gap [Moles/Vol] 12 mmol/LNormal6 - 16 mEq/LRemisol ChemAST [Catalytic activity/Vol]18 [iU]/d Normal5 - 43 Int._Unit/LRemisol ChemBilirubin [Mass/Vol]0.5 mg/dLNormal0.0 - 1.1 mg/dLRemisol ChemCalcium [Mass/Vol]9.8 mg/dLNormal8.9 - 11.1 mg/dLRemisol Chem Chloride [Moles/Vol]100 mmol/AScy024 - 111 mmol/LRemisol ChemCholesterol [Mass/Vol]163 mg/mKAjyefp850 - 200 mg/dLRemisol ChemCholesterol in HDL [Mass/Vol]47 mg/dLInvalid Interpretation CodeRemisol ChemComment on above:Result Comment: '>= 60 LOW RISK' '<= 40 HIGH RISK'Cholesterol in LDL [Mass/Vol]97 mg/dLNormal<=129mg/dLRemisol ChemCholesterol in VLDL [Mass/Vol]42 mg/dLHigh7 - 40 mg/dLRemisol ChemCO2 [Moles/Vol]27 mmol/LBxvyxu41 - 31 mmol/LRemisol ChemCobalamin (Vitamin B12) [Mass/Vol]191 pg/uPStsvuv72 - 1500 pg/mLRemisol ChemCreatinine [Mass/Vol]0.7 mg/dLNormal0.5 - 1.3 mg/dLRemisol TjegkMWM56 mL/min/1.73 q6Ttwfen>=59mL/min/1.73 w8Tfshgfm ChemGlobulin (S) [Mass/Vol]3.2 g/dLNormal1.4 - 4.0 gm/dLRemisol Chem Glucose [Mass/Vol]88 mg/wZFeodgh29 - 199 mg/dLRemisol ChemPotassium [Moles/Vol] 4.3 mmol/LNormal3.5 - 5.3 mmol/LRemisol ChemProtein [Mass/Vol]7.5 g/dLNormal6.0 - 7.8 gm/dLRemisol ChemSodium [Moles/Vol]135 mmol/QXybaem506 - 145 mmol/LRemisol ChemTriglyceride [Mass/Vol]208 mg/dLHigh<=149mg/dLRemisol ChemUrea nitrogen [Mass/Vol]14 mg/dLNormal5 - 21 mg/dLRemisol ChemUrea nitrogen/Creatinine [Mass ratio]20 mg/mjXqxgkc56 - 20Remisol ChemCHEMISTRYOrdered By: Alfredo Africagustavo on 99-78-1713Ptyhgojqtur peptide B (Bld) [Mass/Vol]39 pg/mLNormal5 - 80 pg/mLCORNERSTONE [facility] [place] MarychuyPon 22-61-7752Pxqtqwl [Mass/Vol]4.3 g/dLNormal3.3-5.0[facility] HospitalComment on above:Performed By: #### [id number] #### [facility] [address], [place] [address]Rtsrqsf/Globulin (S) [Mass conc ratio]1.5Jalric8.1-2.2FWilson Memorial HospitalComment on above:Performed By: #### [id number] #### [facility] [address], [place] [address]REU [Catalytic activity/Vol]66 Int._Unit/VLaygyo75-01XljlbfWooster Community HospitalComment on above:Performed By: #### [id number] #### [facility] [address], [place] [address]XOZ No additional P-5'-P [Catalytic activity/Vol]23 Int._Unit/L Normal6-46[facility] HospitalComment on above:Performed By: #### [id number] #### [facility] [address], [place] [address]Bqkjx gap [Moles/Vol]12 mmol/LNormal6-16[facility] HospitalComment on above:Performed By: #### [id number] #### [facility] [address], [place] [address]TAH [Catalytic activity/Vol]18 Int._Unit/LNormal5-43[facility] HospitalComment on above:Performed By: #### [id number] #### [facility] [address], [place] [address]Qdgtplkgq [Mass/Vol]0.5 mg/dLNormal0.0-1.1FWilson Memorial HospitalComment on above:Performed By: #### [id number] #### [facility] [address], [place] [address]Qcffywt [Mass/Vol]9.8 mg/dLNormal8.9-11.1FWilson Memorial HospitalComment on above:Performed By: #### [id number] #### [facility] [address], [place] [address]Jdqbupcc [Moles/Vol]100 mmol/QPzg561-037EagjtfWooster Community HospitalComment on above:Performed By: #### [id number] #### [facility] [address], [place] [address]ZV2 [Moles/Vol]27 mmol/SCvkbkw14-58GzfxrmWooster Community Hospital Comment on above:Performed By: #### [id number] #### [facility] [address], [place] [address]Lsiisgmdko [Mass/Vol]0.7 mg/dLNormal0.5-1.3FWilson Memorial HospitalComment on above:Performed By: #### [id number] #### [facility] [address], [place] [address]Dssihyyi (S) [Mass/Vol]3.2 g/dLNormal1.4-4.0[facility] HospitalComment on above:Performed By: #### [id number] #### [facility] [address], [place] [address]Beidqvr [Mass/Vol]88 mg/tMCfzscn03-092JatgbuWooster Community HospitalComment on above:Performed By: #### [id number] #### [facility] [address], [place] [address]Tisubitqg [Moles/Vol]4.3 mmol/LNormal3.5-5.3FWilson Memorial HospitalComment on above:Performed By: #### [id number] #### [facility] [address], [place] [address]Slyyqft [Mass/Vol]7.5 g/dLNormal6.0-7.8[facility] Community HospitalComment on above:Performed By: #### [id number] #### [facility] [address], [place] [address]Cifmoc [Moles/Vol]135 mmol/UFqknga055-199DrcdruWooster Community HospitalComment on above:Performed By: #### [id number] #### [facility] [address], [place] [address]Ywyr nitrogen [Mass/Vol]14 mg/dLNormal5-21[facility] HospitalComment on above:Performed By: #### [id number] #### [facility] [address], [place] [address]Sfrq nitrogen/Creatinine [Mass ratio]20 No RtbbaSsvjqs22-30 [facility] HospitalComment on above:Performed By: #### [id number] #### [facility] [address], [place] [address]KGPLFAOJPANbezwwo By: SYSTEM SYSTEM on 51-18-3417Jvfosyigq/100 WBC (Bld)0.7 %Normal0.0 - 2.0 %Remisol HemeBasophils/Leukocytes Auto (Bld) [Pure # fraction]0.0 E9/LNormal0.0 - 0.2 E9/LRemisol HemeEosinophils (Bld) [#/Vol]0.1 E9/LNormal0.0 - 0.5 E9/LRemisol HemeEosinophils/100 WBC (Bld)1.1 %Normal0.0 - 8.0 %Remisol HemeErythrocyte distribution width (RBC) [Ratio]15.5 %High10.9 - 14.2 %Remisol HemeHematocrit (Bld) [Volume fraction]41.1 %Zvulfw91.0 - 46.0 % Remisol HemeHemoglobin (Bld) [Mass/Vol]14.2 g/uEMqpjuz05.0 - 16.0 gm/dLRemisol HemeLymphocytes (Bld) [#/Vol]1.2 E9/LNormal1.0 - 4.0 E9/LRemisol Heme Lymphocytes/100 WBC (Bld)18.3 %Zqzonu79.0 - 50.0 %Remisol HemeMCH (RBC) [Entitic mass]32.3 uoXidobb68.0 - 34.0 pgRemisol HemeMCHC (RBC) [Mass/Vol]34.5 g/dL Dcxjua15.4 - 36.0 gm/dLRemisol HemeMCV (RBC) [Entitic vol]93.7 rHDsqxed96.0 - 100.0 fLRemisol HemeMonocytes (Bld) [#/Vol]0.4 E9/LNormal0.2 - 1.0 E9/LRemisol HemeMonocytes/100 WBC (Bld)5.4 %Normal4.0 - 14.0 %Remisol HemeNeutrophils (Bld) [#/Vol]4.8 E9/LNormal2.0 - 7.5 E9/LRemisol HemeNeutrophils/100 WBC (Bld)74.5 % Mefpsi11.0 - 75.0 %Remisol HemePlatelet mean volume (Bld) [Entitic vol]8.3 fL Normal6.4 - 10.8 fLRemisol HemePlatelets (Bld) [#/Vol]239.0 E9/JAjsoou725.0 - 500.0 E9/LRemisol HemeRBC (Bld) [#/Vol]4.4 E12/LNormal4.3 - 5.9 E12/LRemisol HemeWBC corrected for nucl RBC Auto (Bld) [#/Vol]6.5 E9/LNormal4.0 - 11.0 E9/L Remisol HemeLipid Panelon 83-77-5143Mefqbapmjay [Mass/Vol]163 mg/pLFkklxe818-234 [facility] HospitalComment on above:Performed By: #### [id number] #### [facility] [address] [place] [address]Gjmqbeimenz in HDL [Mass/Vol]47 mg/dLInvalid Interpretation CodeWooster Community HospitalComment on above:Result Comment: '>= 60 LOW RISK' '<= 40 HIGH RISK'Performed By: #### [id number] #### [facility] [address], [place] [address]Dxgtbzjdlbx in LDL [Mass/Vol]97 mg/dLNormal<=129W[facility] Community HospitalComment on above:Performed By: #### [id number] #### [facility] [address], [place] [address]Wfxztbbjiux in VLDL [Mass/Vol]42 mg/dLHigh7-40[facility] Community HospitalComment on above:Performed By: #### [id number] #### [facility] [address], [place] [address]Twflmxjpjtzx [Mass/Vol]208 mg/dLHigh<=149W[facility] Community HospitalComment on above:Performed By: #### [id number] #### [facility] [address], [place] [address]Qvg B12on 03-29-2725Fkrxbqnum (Vitamin B12) [Mass/Vol]191 pg/mL Xeocwb05-0862GoddazWooster Community HospitalComment on above:Performed By: #### [id number] #### [facility] [address], [place] [address]iMLMiq 60-33-3725oMCO12 mL/min/1.73 t3Sjftuf>=59W[facility] Community HospitalComment on above:Performed By: #### [id number] #### [facility] [address], [place] [address]Pgdqxk Medicine Office/Clinic Noteon 33-88-2848Argthf Medicine Office/Clinic NoteFalyman school for boys Medicine Office/Clinic Note HPI Staff Stomach pain: [...] 1 that has been ill. She is notbeen out to diners to eat in quite a while. Denies any fever as well as fatigue. Also denies any use of antibiotics recently. She has noticed increased swelling with the legs. Upon asking if she started back up drinking, she states I would not like to and has admitted that she is drinking alcohol again. But did express thatshe is not drinking as much she did previously. Denies chest pain but is complaining of increased shortness of breath on exertion. She is due for all of her blood work. She does follow-up with AISHA Shook regularly for her cardiology. Review of Systems [...] Kao[employer], will send in for Bertha to helpwith the cramping. Did encouraged to follow-up with linter drier operator if no improvement. 2. Alcohol problem drinking (F10.90: Alcohol use, unspecified, uncomplicated) Admitted been drinking again. She was highly advised to cease drinking altogether any alcohol in the house should be removed. Labs have been placed she will get them done within the next day or 2. Wedid include a BNP as well as a vitamin B. Inform her that I will update Rick Hernandez PA-C. 3. Morbid (severe) obesity due to excess calories (E66.01: Morbid (severe) obesity due to excess calories) Calorie restriction along with routine aerobic exercises discussed in order to avoid hypertension, osteoarthritis, metabolic syndrome and/or worsening of chronic underlying disease states. Encouragedto limit sugary drinks, foods high in sodium, [...] to 3 days Additional Instructions: fasting labs Nigel SMITH, Paris ESPINO In [address] [place] [phone] Additional Instructions: chronic care Patient Education Alcohol [...] tags, multiple acquired Smoker (more content not included)...[facility] SystemComment on above: Result Comment: Electronically Signed By: Nigel SMITH, DARLEEN-Paris VILLATORO\.br\Date and Time Signed: 07/12/24 20:01 ESTAmbulatory Visit Summaryon 08-73-3332Zecwoszdep Visit SummaryAmbulatory Visit Summary CARMEN BLEDSOE :1960 Visit Date:07/11/2024 Ambulatory Visit Instructions Your Diagnosis Diarrhea Alcohol problem drinking Morbid (severe) obesity due to excess calories BMI 50.0-59.9, adult Immunization due Your Care Team Attending Physician - Nigel SMITH, HEEL COVER SOFTENER-Paris VILLATORO Primary Care Physician - Nigel SMITH, HEEL COVER SOFTENER-Paris VILLATORO This Is Your Medications List dicyclomine [...] oral tablet) fluoxetine (FLUoxetine 20 mg Cap) fluticasone-salmeterol (Advair Diskus 100 mcg-50 mcg inhalation powder) [...] implant bilat, Knee replacement, L foot bunion/reconstruction. Discharge Vitals Temperature (Temporal Artery) 36.4 ???C Heart Rate (Peripheral) 92 Respiratory Rate 18 Blood Pressure 118/78 Height 168 cm Height 66 in Weight 152.8 kg Weight 336.866 lb BMI 54.14 What to do next Scheduled Follow-Up Appointments Tuesday 11:00 AM EST With: Where: [facility] [address] [place] [address]- Tuesday 12:00 PM EST With: Nigel SMITH, DARLEEN-Paris VILLATORO Where: [facility] [address] [place] [address]- Tuesday 1:00 PM EST With: Nigel SMITH, DARLEEN-Paris VILLATORO Where: [facility] [address] [place] [address]- Tuesday 11:00 AM EST With: Where: [facility] Tuesday 11:00 AM EDT With: Rick Hernandez PA-C Where: [facility] [place] You Need to Schedule the Following Appointments Follow Up with nurse visit When: Within 2 to 3 days Comments: fasting labs Where: Follow Up with Nigel SMITH, DARLEEN-IRVING, Paris Hamilton When: In 1 week Comments: chronic care Where: [address] [place] [phone] You Need to Complete the Following B-Type Natriuretic Peptide, Blood, Routine collect, 07/11/24, Order for future visit, Lab Collect, Benign hypertension Obstructive sleep apnea BMI 50.0- 59.9, adult Moderate persistent asthma Tubular adenoma of [...] BMI 50.0-59.9, adult Moderate persistent asthma Tubular adenomaof colon Type 2 diabetes mellitus with morbid [...] day as needed for Pain Pickup at [facility] #[id number] Unchanged albuterol (albuterol 0.083% Inh Rochelle 3 mL) 3 Shanta (more content not included)...[facility] SystemAmbulatory Visit Summaryon 29-48-9374Tctcflbtdr Visit SummaryAmbulatory Visit Summary CARMEN BLEDSOE :1960 Visit Date:06/05/2024 Ambulatory Visit Instructions Your Diagnosis Benign hypertension Mixed hyperlipidemia Peripheral edema Your Care Team Attending Physician - David LEONARD, Rick Gipson Primary Care Physician - Nigel MSN, HEEL COVER SOFTENER-DRAPERY HEMMER AUTOMATIC, Paris Hamilton Referring Physician - NONE, XXXX This [...] oral tablet) fluoxetine (FLUoxetine 20 mg Cap) fluticasone-salmeterol (Advair Diskus 100 mcg-50 mcg inhalation powder) [...] implant bilat, Knee replacement, L foot bunion/reconstruction. Discharge Vitals Heart Rate (Peripheral) 90 Respiratory Rate 16 Blood Pressure 126/80 Height 168 cm Height 66 in Weight 145.9 kg Weight 321.654 lb BMI 51.69 What to do next Scheduled Follow-Up Appointments Tuesday 1:00 PM EST With: Nigel MSN, HEEL COVER SOFTENER-DRAPERY HEMMER AUTOMATIC, Paris Hamilton Where: [facility] [place] [address] [place] [address]- Tuesday 11:00 AM EST With: Where: [facility] Tuesday 11:00 AM EDT With: David LEONARD, Rick Gipson Where: [facility] Medications What How Much When Why Instructions Unchanged albuterol (albuterol 0.083% Inh Rochelle 3 mL) 3 Milliliter Inhalation Every 6 hours as neededfor Shortness of breath or wheezing Unchanged albuterol [...] 2 Capsules By Mouth Every day Unchanged fluticasone-salmeterol (Advair Diskus 100 mcg-50 mcg inhalation powder) [...] Mouth Once a day (in the evening) Moderatepersistent asthma Unchanged pantoprazole (Pantoprazole [address] [...] for. Alcohol problem drin (more content not included)...[facility] SystemHeart and Vascular Office/Clinic Noteon 45-46-6340Fkssb and Vascular Office/Clinic NoteHeart and Vascular Office/Clinic Note Chief Complaint 6 mo f/u hx of htn, hld History of Present Illness Patient is a 63-year-old female with past medical history of hypertension, cigarette smoking, GERD,HFpEF, history of alcohol abuse, hyperlipidemia, asthma, BRENDA, [...] ER and she was very full fluid. However,patient reports she is not sure if this [...] chest pain, shortness of breath, heart palpitations, dizziness/lightheadedness, and swelling in lower legs. Review of [...] Daily, # 90 tab(s), Refills(s) 1, Pharmacy: [facility] #[id number], 168, cm, 06/05/24 13:03:00 EST, Height/Length Dosing, 145.9, kg, 06/05/24 13:03:00 EST, Weight Dosing 2. Mixed hyperlipidemia (E78.2: Mixed hyperlipidemia) Patient is currently taking rosuvastatin 40 mg daily for HLD. Continue with current medication Ordered: rosuvastatin, 40 mg = 1 tab(s), Oral, Daily, # 90 tab(s), Refills(s) 3, Pharmacy: [facility] #[id number], 168, cm, 06/05/24 13:03:00 EST, Height/Length Dosing, 145.9, kg, 06/05/24 13:03:00 EST, Weight Dosing 3. Peripheral edema (R60.0: Localized edema) Patient has history of peripheral edema. She states she has not any issues here in quite some time.She does admit to drinking very heavily when she had more edema. She has been sober for 8 months now. Patient is still compliant with Lasix 40 mg daily, spironolactone 25 mg daily, potassium zapdqiad25 mEq daily. Since patient has been doing well and no swelling, suggest she continue with current medication. Patient most recent echo from 11/2023 showed normal EF. Ordered: furosemide, 40 mg = 1 tab(s), Oral, Daily, # 90 tab(s), Refills(s) 1, Pharmacy: [facility] #[id number], 168, cm, 06/05/24 13:03:00 EST, Height/Length Dosing, 145.9, kg, 06/05/24 13:03:00 EST, Weight Dosing potassium chloride, 20 mEq = 1 tab(s), Oral, Daily, Take with Lasix, # 90 tab(s), Refills(s) 1, Pharmacy: [facility] #[id number], 168, cm, 06/05/24 13:03:00 EST, Height/Length Dosing, 145.9, kg,06/05/24 13:03:00 EST, Weight Dosing Follow-up with me in 6 months or sooner if needed Portions of this record may have been created with voice recognition artificial intelligence software, specifically [employer], [employer] and or [employer]. Substitutions may have occurred due to the inherent limitations of voice recognition and artificial intelligence software. Follow-up No qualifying data available Problem List/Past Medical History Ongoing Alcohol problem drinking Benign hypertension Bilateral hip pain Bilateral leg edema BMI 45.0-49.9, adult (more content not included)...[facility] Health SystemComment on above: Result Comment: Electronically Signed By: David LEONARD, Rick Gipson\.br\Date and Time Signed: 06/05/24 13:24 [facility]STM[facility] Office/Clinic Noteon 91-50-7099Btemom Medicine Office/Clinic NoteFami Medicine Office/Clinic Note Chief Complaint 3 month [...] of the following symptoms? Vision problems? Denies GI-Nausea/committing/bloating? Denies Lightheadedness? Denies Paresthesias, Ulcerations or sores? [...] smear: 2019 DEXA: NA Labs: 08/10/2023 at [facility] Diabetes/ prediabetes: Eye exam: few years ago, had cataract surgery Foot exam: 08/10/2023 done by Ladonna VILLATORO A1c: Hgb A1C %: 6.3 % High (08/20/22 15:02:00) Smokers/ former smokers: Low dose lung CT: _ List of Providers: Assessment Technician: Dr Ramirez Catering Chef: Dr Phillip Orthopaedics: Dr Martinez LABS Cr/eGFR: [...] 4.6 mcg/mL (08/20/22 15:02:00) . Future Appointments [facility] Doc Appt. Date: 02/22/2024 1:20 PM Scheduled Provider: Paris Macias [address] [place], [address] Phone: [phone] Fax: [phone] [address], [place], [phone] Phone: -- Fax: -- [facility] [place] Appt. Date: 06/05/2024 1:00 PM Scheduled Provider: Adam SAMPSON, Alirio Hooper [address] [place] [address], [id number] Fax: [phone] [address] [place] [address], [address] Phone: -- Fax: -- [address] [place] [address], [address] Phone: -- Fax: -- [facility] Appt. Date: 08/31/2024 11:00 AM Scheduled Provider: LADY [address] [place], [phone] Fax: -- She reports feeling well with [...] is not willing for this. She was prescribedgabapentin by her back surgeon. Currently, she is not on tramadol. She recalls that tramadol was anyway not beneficial for her. She is experiencing heightened anxiety. She recalls feeling anxious due to fear of getting lost when she was travelling to a new place. She feels all tore up inside particularly about twice a week.Her current medications include Abilify 2 mg and [...] 50 pounds and currently weighs about 301 pounds.She reports no new liver issues. She occasionally checks her blood sugar at home. Her last HbA1c was 5.4% when checked at [facility]. She has discontinued her trazodone for sleep but continues to use a CPAP machine. She has already had a colonoscopy, and there is another scheduled in 3 months. Her last mammogram was (more content not included)...[facility] SystemComment on above:Result Comment: Electronically Signed By: SRINIVAS Pereyra Tammy L.\.br\Date and Time Signed: 02/23/24 15:15 EDT\.br\Electronically Co-Signed By: MEGHAN KRAUSE\.br\Date and Time Co-Signed: 02/22/24 16:47 EDTAmbulatory Visit Summaryon 79-12-3276Nmmqyqdgoc Visit Summary Ambulatory Visit Summary CARMEN BLEDSOE [...] oral tablet) fluoxetine (FLUoxetine 20 mg Cap) fluticasone-salmeterol (Advair Diskus 100 mcg-50 mcg inhalation powder) [...] implant bilat, Knee replacement, L foot bunion/reconstruction. Discharge Vitals Temperature (Temporal Artery) 36.6 ?C Heart Rate (Peripheral) 63 Respiratory Rate 18 Blood Pressure 118/68 Height 167 cm Height 66 in Weight 137 kg Weight 301.4 lb BMI 49.12 What to do next Scheduled Follow-Up Appointments Tuesday 1:00 PM EST With: Adam SAMPSON, Alirio Hooper Where: [facility] Tuesday 1:00 PM EST With: Nigel SMITH, Paris ESPINO Where: [address] [address]- Tuesday 11:00 AM EST With: Where: [facility] You Need to Schedule the Following Appointments Follow Up with Nigel SMITH, Paris ESPINO When: In 6 months Comments: chronic care Where: [address] [place] [phone] Medications What How Much When Why Instructions Changed aripiprazole (Abilify 5 mg Tab) 1 Tablets By Mouth Every day Changed dulaglutide (Trulicity Pen 3 mg/ 0.5 mL subcutaneous solution) 3 Milligram Subcutaneous Every week Type 2 diabetes mellitus with morbid obesity Pickup at [facility] #[id number] Unchanged albuterol (albuterol 0.083% Inh Rochelle 3 mL) 3 Milliliter Inhalation Every 6 hours as neededfor Shortness of breath or wheezing Contact prescribing [...] prescribing physician if questions or concerns Unchanged fluticasone-salmeterol (Advair Diskus 100 mcg-50 mcg inhalation powder) See instructions Contact prescribing physician if questions or concerns Unchanged furosemide (furosemide 40 mg Tab) 1 Tablets By Mouth Every day Contact prescribing physician if questions or concerns Unchanged gabapentin (gabapentin 300 mg Cap) 1 Capsules 3 times a day Contact prescribing physicianif questions or concerns Unchanged glipiZIDE (glipiZIDE 2.5 mg ER Tab) 1 Tablets By Mouth Every day Contact prescribing physician if questions or concerns Unchanged Misc Prescription (Alcohol wipes) See instructions Use to check BS daily dx E11.9 Contactprescribing physician if questions or concerns Unchanged Misc Prescription (Glucometer) See instructions Glucometer to test BS TID and PRN dx E11.9 Contact prescribing physician if questions or concerns Unchanged Misc Prescription (Lancets) See instructions Use to check BS daily dx E11.9 Contact prescribing physician if questions or concerns Unchanged Misc Prescription (more content not included)...[facility] SystemHeart and Vascular Office/Clinic Noteon 97-86-6625Rvgaa and Vascular Office/Clinic NoteHeart and Vascular Office/Clinic Note Chief Complaint 6 [...] not in heart failure. Given her overall well-being,a stress test is not deemed necessary at this time. Follow up. The patient is scheduled for a follow-up visit in 6 months. ATTESTATION: Documentation services were performed after patient or guardian consented to allow [employer] to record this visit. BUD interactive media specialist and provider reviewed before signing. BUD: Tyra Manatad/pasted by: Josse Nava Portions of this record may have been created with voice recognition artificial intelligence software, specifically [employer], [employer] and or [employer]. Substitutions may have occurred due to the [...] implant bilat, Knee replacement, L foot bunion/reconstruction. Medications Abilify 2 mg Tab, 2 mg= [...] 1 refills furosemide 4 (more content not included)...[facility] Comment on above:Result Comment: Electronically Signed By: Adam SAMPSON, Alirio Hooper\.br\Date and Time Signed: 01/28/24 09:35 EDT\.br\Electronically Co- Signed By: Josse Nava\.br\Date and Time Co-Signed: 12/06/23 16:45 EDT Consenton [id number]#[id number] [facility] SystemDischarge Instructionson 21-38-3062Kbxuosksr [id number]#1.00TIFFNormVeterans Health AdministrationMain OR Intraoperative Recordon [id number] OR Intraoperative RecordIntraOp Document Type FT Summary Primary Physician: Walker Phillip MD Finalized Date/Time: 12/26/23 11:06:58 Pt. Name: CARMEN BLEDSOE/Sex: 1960 Female Med Rec #: [id number] Physician: Walker Phillip MD Financial #: [id number] Pt. Type: O Room/Bed: / Admit/Disch: 12/23/23 [...] Lainez RN, Ray Graham Role Performed Anesthesiologist Electrical Continuity Inspector - Primary Staff - Other Manager [employer] Time In 12/23/23 12:15:00 12/23/23 12:15:00 12/23/23 12:15:00 Time Out 12/23/23 12:57:00 12/23/23 12:57:00 12/23/23 12:57:00 Procedure COLONOSCOPY(.) COLONOSCOPY(.) COLONOSCOPY(.) Comments Dr. Benz is supervising Last Modified By: Migel MURRAY, Felicia Lainez Felicia MURRAY RN, Kristin N 12/23/23 12:57:38 12/23/23 12:57:38 12/23/23 12:57:38 Entry [...] and tissue Entry 1 Skin Integrity Intact, [place], Warm, and Skin Abnormality No Dry Outcomes Met? Yes Last Modified By: Felicia Lainez RN 12/23/23 12:25:30 Post-Care Text: The patient is free from signs and symptoms of injury caused by extraneous objects Patient Positioning FT Pre-Care Text: Identifies physical alterations that require additional precautions for procedure-specific posit (more content not included)...NormalWooster Community HospitalConsent for Treatmenton [id number] for Treatment [id number]#1.00TIFFNormalWooster Community HospitalDischarge Instructionson 12-56-4450Pgrfmkgfs Instructions ALDICARMEN :1960 Visit Date:12/23/2023 Inpatient Discharge Instructions Your [...] oral tablet) fluoxetine (FLUoxetine 20 mg Cap) fluticasone-salmeterol (Advair Diskus 100 mcg-50 mcg inhalation powder) [...] implant bilat, Knee replacement, L foot bunion/reconstruction. Discharge Vitals Temperature (Temporal Artery) 36.6 ?C [...] EDT With: Marjan SAMPSON, Walker Pritchett Where: [facility] [address] [place] [address]- \.br\ Tuesday 1:00 PM EST \.br\ With:Adam SAMPSON, Alirio Hooper\.br\ Where: [facility]\.br\ New Follow Up Appointments after Discharge\.br\ Follow Up with Marjan SAMPSON, Walker Pritchett, GAS, MED When: \.br\ Comments:\.br\ Call Office in 2 weeks for results or follow-up Appt. \.br\ Where:\.br\ [address], [address]\.br\ [place] [address]-\.br\ [phone]\.br\ Medications\.br\ What How Much When WhyInstructions Next Dose\.br\ Unchanged albuterol (albuterol 0.083% Inh Rochelle 3 mL) 3 Milliliter Inhalation Every 6 hours as needed for Shortness of breath or wheezing\.br\ Unchanged albuterol (Ventolin HFA 90 mcg/ inh Aerosol- Adpt) 2 Puffs Inhalation Every 6 hours as [...] 2 Capsules By Mouth Every day\.br\ Unchanged fluticasone-salmeterol (Advair Diskus 100 mcg-50 mcg inhalation powder) See instructions\.br\ Unchanged furosemide (furosemide 40 mg Tab) 1 Tablets By Mouth Every day\.br\ Unchanged glipiZIDE (glipiZIDE 2.5 mg ER Tab)1 Tablets By Mouth Every day\.br\ Unchanged Misc [...] mg Tab) 1 Tablets By Mouth Once aday (in the evening) Moderate persistent asthma\.br\ Unchanged pantoprazole (Pantoprazole [address] Tab) 1 Tablets By Mouth Every day\.br\ Unchanged potassium chloride (potassium chloride 20 mEq ER Tab) 1 Tablets By Mouth Every day as needed for PRN Take with Lasix \.br\ Unchanged rosuvastatin (Crestor 40 mg Tab) 1 Tablets By Mouth Every day\.br\ Unchanged spironolactone (spironolactone 25 mg Tab)1 Tablets By Mouth Every day Duration: 90 Days\.br\ Unchanged tiotropium (Spiriva Respimat 1.25 mcg/ inh inhalation aerosol) 2 Puffs Inhalation Every day\.br\ Unchanged tizanidine (tiZANidine 4 mg Tab) 1 Tablets By Mouth Every 8 hours as needed for Spasm\.br\ Unchanged tramadol (traMADOL 50 mg Tab)1 Tablets By Mouth Every 6 hours as needed for for pain\.br\ Unchanged trazodone (traZODONE 50 mg Tab) 1 Tablets By Mouth Once a day (at bedtime)\.br\ Test Results\.br\ No qualifying data available.\.br\ Allergies\.br\ amLODIPine (Leg Edema)\.br\ lisinopril (Persistent cough, Tongue swelling)\.br\ metFORMIN (Diarrhea)\.br\ Problems\.br\ Ongoing - Any problem that you are currently receiving treatment for.\.br\ Alcohol problem drinking\.br\ Benign hypertension\.br\ Bilateral hip pain\.br\ Bilateral leg edema\.br\ BMI 50.0- 59.9, adult\.br\ Chronic insomnia\.br\ Cigarette smoker\.br\ Class 3 severe obesity due to excess calories with serious comorbidity in adult\.br\ Elevated LFTs\.br\ Elevated liver transaminase level\.br\ Encounter for medication management\.br\ Fatty liver\.br\ GA (granuloma annulare)\.br\ GERD (gastroesophageal reflux disease)\.br\ Heart failure with preserved ejection fraction\.br\ Hepatomegaly\.br\ History of alcohol abuse\.br\ History of colon polyps\.br\ Hypokalemia\.br\ Left hand weakness\.br\ Low vitamin D level\.br\ Marijuana user\.br\ Medication management\.br\ Mixed hyperlipidemia\.br\ Moderate persistent asthma\.br\ Neurogenic claudication\.br\ Obstructive sleep apnea\.br\ Restless leg syndrome\.br\ Right hip pain\.br\ Sciatica\.br\ Seborrheic keratoses\.br\ Severe major depression\.br\ Skin tags, multiple acquired\.br\ Smoker\.br\ Type 2 diabetes mellitus with morbid obesity\.br\ Uterine fibroid\.br\ Historical - Any problem that you are no longer receiving treatment for.\.br\ COPD exacerbation\.br\ Tubular adenoma of colon\.br\ Devices Implanted/Removed This Visit\.br\ Notice: You have devices implanted [...] While your treatment has been planned according tothe most current medical practices available, unavoidable complications [...] (your abdomen is swollen).\.br\ There is vomiting.\.br\ Youhave a temperature over 101.5 F.\.br\ There is [...] Signs\.br\ Chest discomfort: Most heart attacks involve discomfFisher Medstar Good Samaritan HospitalComment on above:Result Comment: Electronically Signed By: Serge MURRAY, Anais\.sonia\Date and Time Signed: 12/23/23 13:18EDTEndoscopic Procedure Report - Otheron [id number] Procedure Report - OtherPatient: CARMEN BLEDSOE Age: 63 years Sex: Female : 1960 Associated Diagnoses: None Author: Walker Phillip MD Pre-Procedure Procedure Date 12/23/2023 12:56:00 . Procedure Type: Colonoscopy with removal of tumor(s), polyp(s), or other lesion(s) by cold snare technique. Procedure provider Performed by Walker Phillip MD. Current history and physical Reviewed. Colonoscopy ([id number]) on 03/17/2020 at 59 Years. L foot bunion/reconstruction. Eye/lens implant bilat. Knee replacement ([id number]).. Past Medical History Resolved Tubular adenoma of colon (1060121154): Resolved. COPD exacerbation (329956038): Resolved.. Family History Liver cancer Father () Hypertension Sister Brother Mother () Stomach cancer Mother () . Procedure History Colonoscopy ([id number]) on 03/17/2020 at 59 Years. L foot bunion/reconstruction. Eye/lens implant bilat. Knee replacement ([id number]).. Colorectal neoplasm risk assessment High risk Previous [...] 90 tab(s), Refills(s) 3, Pharmacy: [facility] #[id number], 167, cm, 01/11/23 11:15:00 EDT, Height/Length Dosing, 138, kg, 01/11/23 11:15:00 EDT, Weight Dosing Alcohol wipes: Alcohol wipes, See Instructions, 100 EA, 3, Use to check BS daily dx E11.9, [facility] #76016, Supply, 163, cm, 12/30/21 11:09:00 EDT, Height/Length Dosing, 154, kg, 12/30/21 11:09:00 EDT, Weight Dosing Crestor 40 mg Tab: 40 mg = 1 tab(s), Oral, Daily, # 90 tab(s), Refills(s) 3, Pharmacy: [facility] #[id number], 167, cm, 05/09/23 8:15:00 EST, Height/Length Dosing, 145.6, kg, 05/09/23 8:15:00 EST, Weight Dosing FLUoxetine 20 mg Cap: 40 mg = 2 cap(s), Oral, Daily, # 180 cap(s), Refills(s) 1, Pharmacy: [facility]#[id number], 167, cm, 08/10/23 14:24:00 EST, Height/Length Dosing, 151.4, kg, 08/10/23 14:24:00 EST, Weight Dosing Glucometer: Glucometer, See Instructions, 1 EA, 0, Glucometer to test BS TID and PRN dx E11.9, [facility], Supply, 170, cm, 05/27/21 8:31:00 EST, Height/Length Dosing, 157.8, kg, 05/27/21 8:31:00 EST, Weight Dosing Jardiance 10 mg oral tablet: 10 mg, Oral, Daily, # 90 tab(s), Refills(s) 2, Pharmacy: [facility] #[id number], 167, cm, 08/10/23 14:24:00 EST, Height/Length Dosing, 151.4, kg, 08/10/23 14:24:00 EST, Weight Dosing Lancets: Lancets, See Instructions, 100 EA, 3, Use to check BS daily dx E11.9, [facility] #38117, Supply, 163, cm, 12/30/21 11:09:00 EDT, Height/Length Dosing, 154, kg, 12/30/21 11:09:00 EDT, Weight Dosing Nebulizer Machine: Nebulizer Machine, See Instructions, 1 EA, 0, Nebulizer Machine, [facility] #89209, Supply, 168, cm, 10/11/23 14:32:00 EDT, Height/Length Dosing, 160.2, kg, 10/11/23 14:32:00 EDT, Weight Dosing Nebulizer Tubing and Mouthpiece Kit: Nebulizer Tubing and Mouthpiece Kit, See Instructions, 1 kit(s), 0, Nebulizer Tubing and Mouthpiece Kit, [facility] #72980, Supply, 168, cm, 10/11/23 14:32:00 EDT, Height/Length Dosing, 160.2, kg, 10/11/23 14:32:00 EDT, Weight Dosing Pantoprazole [address] Tab: 40 mg = 1 tab(s), Oral, Daily, # 90 tab(s), Refills(s) 3, Pharmacy: [facility] #[id number], 167, cm, 01/11/23 11:15:00 EDT, Height/Length Dosing, 138, kg, 01/11/23 11:15:00 EDT, Weight Dosing Singulair 10 mg Tab: 10 mg = 1 tab(s), Oral, qPM, # 30 tab(s), Refills(s) 2, [address] [facility], 170, cm, 10/16/19 9:09:00 EDT, Height/Length Measured, 154.3, kg, 10/16/19 9:09:00 EDT, Weight Measured Spiriva Respimat 1.25 mcg/inh inhalation aerosol: 2 puff(s), Inhalation, Daily, 3 EA, Refill(s) 3, [facility], 163, cm, 12/30/21 11:09:00 EDT, Height/Length Dosing, 154, kg, 12/30/21 11:09:00 EDT, Weight Dosing Test Strips: Test Strips, See Instructions, 100 EA, 3, Use to test BS daily, [facility][id number], Supply, 167.5, cm, 10/18/22 13:30:00 EDT, Height/Length Dosing, 147, kg, 10/18/22 13:30:00 EDT, Weight Dosing Trulicity Pen 1.5 mg/0.5 mL subcutaneous solution: 1.5 mg, SubCutaneous, qWeek, # 4 EA, Refills(s) 0, Pharmacy: [facility][id number], 168, cm, 12/06/23 14:55:00 EDT, Height/Length Dosing, 139, kg, 12/06/23 14:55:00 EDT, Weight Dosing Ventolin HFA 90 mcg/inh Aerosol-Adpt: 2 (more content not included)...Normal [facility] HospitalComment on above:Result Comment: Electronically Signed By: Walker Phillip MD\.br\Date and Time Signed: 12/23/23 12:58 EDTMain OR PACU I Recordon [id number] OR PACU I RecordPACU Phase I Document Type FT Summary Primary Physician: Walker Phillip MD Finalized Date/Time: 12/23/23 13:44:10 Pt. Name: CARMEN BLEDSOE/Sex: 1960 Female Med Rec #: [id number] Physician: Walker Phillip MD Financial #: [id number] Pt. Type: O Room/Bed: / Admit/Disch: 12/23/23 [...] individualized perioperative plan of care The patient's rightto privacy is maintained The patient's value system, [...] with or improved from baseline levels established preoperativelyThe patient's cardiovascular status is consistent with or improved from baseline levels established preoperatively The patient's cardiovascular status is consistent with or improved from baseline levels established preoperatively The patient demonstrates and/or reports adequate pain control throughout the perioperative period The patient received appropriate medication(s), safely administered during the perioperativeperiod Acuity Level PACU I FT Entry 1 Start Time 12/23/23 13:00:00 Stop Time 12/23/23 13:30:00 Acuity Level Acuity Level I Last Modified By: Anais Valentine RN 12/23/23 13:44:08 Finalized By: Anais Valentine RN Document Signatures Signed By: Anais Valentine RN 12/23/23 13:44[facility] SystemMain [facility] Preoperative Recordon [id number] OR Preoperative RecordHolding Area Document Type FT Summary Primary Physician: Walker Phillip MD Finalized Date/Time: 12/23/23 10:57:22 Pt. Name: CARMEN BLEDSOE/Sex: 1960 Female Med Rec #: [id number] Physician: Walker Phillip MD Financial #: [id number] Pt. Type: O Room/Bed: / Admit/Disch: 12/23/23 [...] or her perioperative plan of care The patient'sright to privacy is maintained Surgery Checklist FT [...] Signatures Signed By: Jannet Adorno RN 12/23/23 10:57NoCleveland Clinic Avon HospitalMonitor Recordon [id number] Record [id number]#1.00TIFFHolzer Health SystemNursing Narrative Noteon [id number] Narrative NoteUnable to obtain accurate testing after attempt x2 RN d/t pt body habitus.[facility] SystemPatient Education - Texton [id number] Education - Text Colonoscopy Care After Surgery [...] is severe or gets worse throughout the day.[facility] SystemProgress Note-Physicianon 12-23-2023 Progress Note-PhysicianPatient: CARMEN BLEDSOE Age: 63 years Sex: Female : 1960 Associated Diagnoses: None Author: Zaid Benz MD Postoperative Information Postoperative disposition: Postoperative disposition: To PACU. Optimetrix number: Optimetrix number [id number]. Anesthetic utilized: General. Health Status Allergies: Allergic [...] Discharge when meets criteria ( To home ).[facility] SystemComment on above:Result Comment: Electronically Signed By: Zaid Benz MD\.br\Date and Time Signed: 12/23/23 14:27 EDTProgress Note-PhysicianPatient: CARMEN BLEDSOE Age: 63 years Sex: Female [...] Daily, # 90 tab(s), Refills(s) 3, Pharmacy: [facility][id number], 167, cm, 01/11/23 11:15:00 EDT, Height/Length Dosing, 138, kg, 01/11/23 11:15:00 EDT, Weight Dosing Alcohol wipes: Alcohol wipes, See Instructions, 100 EA, 3, Use to check BS daily dx E11.9, [facility] #01132, Supply, 163, cm, 12/30/21 11:09:00 EDT, Height/Length Dosing, 154, kg, 12/30/21 11:09:00 EDT, Weight Dosing Crestor 40 mg Tab: 40 mg = 1 tab(s), Oral, Daily, # 90 tab(s), Refills(s) 3, [facility], 167, cm, 05/09/23 8:15:00 EST, Height/Length Dosing, 145.6, kg, 05/09/23 8:15:00 EST, Weight Dosing FLUoxetine 20 mg Cap: 40 mg = 2 cap(s), Oral, Daily, # 180 cap(s), Refills(s) 1, [facility], 167, cm, 08/10/23 14:24:00 EST, Height/Length Dosing, 151.4, kg, 08/10/23 14:24:00 EST, Weight Dosing Glucometer: Glucometer, See Instructions, 1 EA, 0, Glucometer to test BS TID and PRN dx E11.9, [facility], Supply, 170, cm, 05/27/21 8:31:00 EST, Height/Length Dosing, 157.8, kg, 05/27/21 8:31:00 EST, Weight Dosing Jardiance 10 mg oral tablet: 10 mg, Oral, Daily, # 90 tab(s), Refills(s) 2, Pharmacy: [facility] #49908, 167, cm, 08/10/23 14:24:00 EST, Height/Length Dosing, 151.4, kg, 08/10/23 14:24:00 EST, Weight Dosing Lancets: Lancets, See Instructions, 100 EA, 3, Use to check BS daily dx E11.9, [facility] #44382, Supply, 163, cm, 12/30/21 11:09:00 EDT, Height/Length Dosing, 154, kg, 12/30/21 11:09:00 EDT, Weight Dosing Nebulizer Machine: Nebulizer Machine, See Instructions, 1 EA, 0, Nebulizer Machine, [facility] #02589, Supply, 168, cm, 10/11/23 14:32:00 EDT, Height/Length Dosing, 160.2, kg, 10/11/23 14:32:00 EDT, Weight Dosing Nebulizer Tubing and Mouthpiece Kit: Nebulizer Tubing and Mouthpiece Kit, See Instructions, 1 kit(s), 0, Nebulizer Tubing and Mouthpiece Kit, [facility] #47811, Supply, 168, cm, 10/11/23 14:32:00 EDT, Height/Length Dosing, 160.2, kg, 10/11/23 14:32:00 EDT, Weight Dosing Pantoprazole [address] Tab: 40 mg = 1 tab(s), Oral, Daily, # 90 tab(s), Refills(s) 3, Pharmacy: [facility] #49118, 167, cm, 01/11/23 11:15:00 EDT, Height/Length Dosing, 138, kg, 01/11/23 11:15:00 EDT, Weight Dosing Singulair 10 mg Tab: 10 mg = 1 tab(s), Oral, qPM, # 30 tab(s), Refills(s) 2, Pharmacy: [facility], 170, cm, 10/16/19 9:09:00 EDT, Height/Length Measured, 154.3, kg, 10/16/19 9:09:00 EDT, Weight Measured Spiriva Respimat 1.25 mcg/inh inhalation aerosol: 2 puff(s), Inhalation, Daily, 3 EA, Refill(s) 3, [facility], 163, cm, 12/30/21 11:09:00 EDT, Height/Length Dosing, 154, kg, 12/30/21 11:09:00 EDT, Weight Dosing Test Strips: Test Strips, See Instructions, 100 EA, 3, Use to test BS daily, [facility] #70928, Supply, 167.5, cm, 10/18/22 13:30:00 EDT, Height/Length Dosing, 147, kg, 10/18/22 13:30:00 EDT, Weight Dosing Trulicity Pen 1.5 mg/0.5 mL subcutaneous solution: 1.5 mg, SubCutaneous, qWeek, # 4 EA, Refills(s) 0, Pharmacy: [facility] #54036, 168, cm, 12/06/23 14:55:00 EDT, Height/Length Dosing, 139, kg, 12/06/23 14:55:00 EDT, Weight Dosing Ventolin HFA 90 mcg/inh Aerosol-Adpt: 2 puff(s), Inhalation, q6hr for wheezing, 1 EA, Refill(s) 1, [facility] #69609, 167, cm, 09/29/22 11:37:00 EDT, Height/Length Dosing, 149.2, kg, 09/29/22 11:37:00 EDT, Weight Dosing Vitamin D3 5000 intl units oral capsule: 5,000 International_Unit = 1 cap(s), Oral, Daily, with food, # 100 cap(s), Refills(s) 1, Pharmacy: [facility] #30195, 170, cm, 10/13/22 9:06:00 EDT, Height/Length Dosing, 149.2, kg, 09/29/22 11:37:00 EDT, Weight Dosing albuterol 0.083% Inh Rochelle 3 mL: 2.5 mg, 3 mL, Inhalation, q6hr Shortness of breath or wheezing, 100 EA, Refill(s) 1, [facility] #38760, 168, cm, 10/11/23 14:32: (more content not included)...[facility] SystemComment on above:Result Comment: Electronically Signed By: Demar SAMPSON, Zaid Hooper\.br\Date and Time Signed: 12/23/23 11:24 EDTRAD - MRI Reporton [id number] - MRI Report [id number]#1.00TIFFNormVeterans Health AdministrationMRI LUMBAR SPINE WO CONTRASTon [id number] LUMBAR SPINE WO CONTRAST HISTORY: Low back [...] Signed by: Dwayne Ruffin MD 12/22/23 Final resultNormalMerUpstate University HospitalInsurance Correspondenceon 12-13-2023 Insurance [id number] Magana [facility] HospitalPhysician Orderon [id number] Order [id number]#1.00Alvin [facility] HospitalAmbulatory Visit Summaryon [id number] Visit Summary CARMEN BLEDSOE :1960 Visit Date:12/06/2023 Ambulatory Visit Instructions Your Care Team Attending Physician - Adam SAMPSON, Alirio Hooper Primary Care Physician - Nigel MSN, HEEL COVER SOFTENER[employer], [place] Hamilton Referring Physician - NONE, XXXX This [...] oral tablet) fluoxetine (FLUoxetine 20 mg Cap) fluticasone-salmeterol (Advair Diskus 100 mcg-50 mcg inhalation powder) [...] implant bilat, Knee replacement, L foot bunion/reconstruction. Discharge Vitals Heart Rate (Peripheral) 86 Blood Pressure 124/80 Height 168 cm Height 66 in Weight 139.0 kg Weight 305.8 lb BMI 49.25 What to do next Scheduled Follow-Up Appointments Tuesday 10:30 AM EDT With: Where: [facility] Tuesday 12:00 PM EDT With: Where: [facility] Tuesday 10:45 AM EDT With: Marjan SAMPSON, Walker Pritchett Where: [facility] [address] [place] [address]- \.br\ Tuesday 1:00 PM EST \.br\ With:Adam SAMPSON, Alirio Hooper\.br\ Where: [facility]\.br\ Medications\.br\ What How Much When Why Instructions\.br\ Unchanged albuterol (albuterol 0.083% Inh Rochelle 3 [...] 2 Capsules By Mouth Every day\.br\ Unchanged fluticasone-salmeterol (Advair Diskus 100 mcg-50 mcg inhalation powder) See instructions\.br\ Unchanged furosemide(furosemide 40 mg Tab) 1 Tablets By Mouth [...] Machine \.br\ Unchanged Misc Prescription (Nebulizer Tubing andMouthpiece Kit) See instructions Moderate persistent asthma Nebulizer [...] Unchanged potassium chloride (potassium chloride 20 mEq ERTab) 1 Tablets By Mouth Every day as [...] receiving treatment for.\.br\ Alcohol problem drinking\.br\ Benign hypertension\.br\ Bilateral hip pain\.br\ Bilateral leg edema\.br\ BMI 50.0-59.9, adult\.br\ Chronic insomnia\.br\ Cigarette smoker\.br\ Class 3 severe obesity due to excess calories with serious comorbidity in adult\.br\ Elevated LFTs\.br\ Elevated liver transaminase level\.br\ Encounter for medication management\.br\ Fatty liver\.br\ GA (granuloma annulare)\.br\ GERD (gastroesophageal reflux disease)\.br\ Heart failure with preserved ejection fraction\.br\ Hepatomegaly\.br\ History of alcohol abuse\.br\ History of colon polyps\.br\ Hypokalemia\.br\ Left hand weakness\.br\ Low vitamin D level\.br\ Marijuana user\.br\ Medication management\.br\ Mixed hyperlipidemia\.br\ Moderate persistentasthma\.br\ Neurogenic claudication\.br\ Obstructive sleep apnea\.br\ Restless leg syndrome\.br\ Right hip pain\.br\ Sciatica\.br\ Seborrheic keratoses\.br\ Severe major depression\.br\ Skin tags, multiple acquired\.br\ Smoker\.br\ Type 2 diabetes mellitus with morbid obesity\.br\ Uterine fibroid\.br\ Historical - Any problem that you are no longer receiving treatment for.\.br\ COPD exacerbation\. br\ Tubular adenoma of colon\.br\ Patient Survey\.br\ You may receive a survey via text or e-mail asking about your office visit. Please share your experience with us by completing your survey. We appreciate your feedback and thank you for choosing us for your care.\.br\ \.br\[facility] Consent for Treatmenton [id number] for Treatment [id number] Community HospitalAmbulatory Visit Summaryon [id number] Visit Summary CARMEN BLEDSOE :1960 Visit Date:11/25/2023 Ambulatory Visit Instructions Your Diagnosis Benign hypertension Hepatomegaly Type 2 diabetes mellitus with morbid obesity Alcohol problem drinking Class 3 severe obesity due to excess calories with serious comorbidity in adult, Morbid (severe) obesity due to excess calories BMI 50.0-59.9, adult Your Care Team Attending Physician - Nigel MSN, HEEL COVER SOFTENER[employer], Paris Hamilton Primary Care Physician - Nigel MSN, HEEL COVER SOFTENER-Paris VILLATORO This Is Your Medications List tramadol [...] oral tablet) fluoxetine (FLUoxetine 20 mg Cap) fluticasone-salmeterol (Advair Diskus 100 mcg-50 mcg inhalation powder) [...] implant bilat, Knee replacement, L foot bunion/reconstruction. Discharge Vitals Temperature (Temporal Artery) 36 ?C Heart Rate (Peripheral) 89 Respiratory Rate 22 Blood Pressure 138/80 Height 168 cm Height 66 in Weight 141.8 kg Weight 311.96 lb BMI 50.24 What to do next Scheduled Follow-Up Appointments Tuesday 3:15 PM EDT With: Adam SAMPSON, Alirio Hooper Where: [facility] Tuesday 10:30 AM EDT With: Where: [facility] Tuesday 12:00 PM EDT With: Where: [facility] Tuesday 10:45 AM EDT With: Marjan SAMPSON, Walker Pritchett Where: [facility] [address] [place] [address]- \.br\ You Need to Schedule the Following Appointments\.br\ Follow Up with Nigel SMITH, HEEL COVER SOFTENER[employer], Paris Hamilton When: In 3 months\.br\ Comments:\.br\ chroniccare\.br\ Where:\.br\ [address]\ [place] [address]\.br\ Medications\.br\ What How Much When Why Instructions\.br\ Changed tramadol (traMADOL 50 mg Tab) 1 Tablets By Mouth Every 6 hours as needed for for pain [facility] at [facility]175\.br\ Unchanged albuterol (albuterol 0.083% InhSol 3 mL) 3 Milliliter Inhalation Every 6 [...] physician if questions or concerns \.br\ Unchanged fluticasone- salmeterol (Advair Diskus 100 mcg-50 mcg inhalation powder) See instructions Contactprescribing physician if questions or concerns \.br\ Unchanged furosemide (furosemide 40 mg Tab) 1 Tablets By Mouth Every day Contact prescribing physician if questions or concerns \.br\ Unchanged glipiZIDE (glipiZIDE 2.5 mg ER Tab) 1 Tablets By Mouth Every day Contact prescribing physician if questions or concerns \.br\ Unchanged Misc Prescription (Alcohol wipes) See instructions Use to check BSdaily dx E11.9 Contact prescribing physician if questions or concerns \.br\ Unchanged Misc Prescription (Glucometer) See instructions Glucometer to test BS TID and PRN dx E11.9 Contact prescribing physician if questions or concerns \.br\ Unchanged Misc Prescription (Lancets) See instructions Use tocheck BS daily dx E11.9 Contact prescribing physician if questions or concerns \.br\ Unchanged MiscPrescription (Nebulizer Machine) See instructions Moderate persistent asthma [...] evening) Moderate persistent asthma Contact prescribing physician ifquestions or concerns \.br\ Unchanged pantoprazole (Pantoprazole [address] Tab) 1 Tablets By Mouth Every day Contact prescribing physician if questions or concerns \.br\ Unchanged potassium chloride (potassium chloride 20 mEq ER Tab) 1 Tablets By Mouth Every day as needed for PRN Take with Lasix Contact prescribing physician if questions or concerns \.br\ Unchanged rosuvastatin (Crestor 40 mg Tab)1 Tablets By Mouth Every day Contact prescribing physician if questions or concerns \.br\ Unchangedspironolactone (spironolactone 25 mg Tab) 1 Tablets By [...] or concerns \.br\ Pharmacy Information\.br\ [id number]: [address] [place] [id number] [phone]\.br\ \.br\ What How Much When Comments\.br\ Stop [...] receiving treatment for.\.br\ Alcohol problem drinking\.br\ Benign hypertension\.br\ Bilateral leg edema\.br\ BMI 50.0-59.9, adult\.br\ Chronic insomnia\.br\ Cigarette smoker\.br\ Class 3 severe obesity due to excess calories with serious comorbidity in adult\.br\ Elevated LFTs\.br\ Elevated liver transaminase level\.br\ Encounter for medication management\.br\ Fatty liver\.br\ GA (granuloma annulare)\.br\ GERD (gastroesophageal reflux disease)\.br\ Heart failure with preserved ejection fraction\.br\ Hepatomegaly\.br\ History of alcohol abuse\.br\ History of colon polyps\.br\ Hypokalemia\.br\ Left hand weakness\.br\ Low vitamin D level\.br\ Marijuana user\.br\ Medication management\.br\ Mixed hyperlipidemia\.br\ Moderate persistent asthma\.br\ Neurogenic claudication\.br\ Obstructive sleep apnea\.br\ Restless leg syndrome\.br\ Right hip pain\.br\ Sciatica\.br\ Seborrheic keratos es\.br\ Severe major depression\.br\ Skin tags, multiple acquired\.br\ Smoker\.br\ Type 2 diabetes mellitus with morbid obesity\.br\ Uterine fibroid\.br\ Historical - Any problem that you are no longer receiving treatment for.\.br\ COPD exacerbation\.br\ Tubular adenoma of colon\.br\ Patient Survey\ .br\ You may receive a survey via text or e-mail asking about your office visit. Please share your experience with us by completing your survey. We appreciate your feedback and thank you for choosingus for your care.\.br\ Education Materials\.br\ Hepatomegaly\.br\ \.br\ Hepatomegalyis when a person's liver is larger than normal. Some health problems can cause the liver to get bigger. Some people may have an enlarged liver but do not know it.\.br\ What are the causes?\.br\ This condition may be caused by:\.br\ ? \.br\ Cirrhosis. This is long-term (chronic) liver damage that isoften caused by drinking too much alcohol. Cirrhosis is also caused by certain diseases, infection,and some medicines.\.br\ ? \.br\ Hepatitis. This is [...] likely to develop this condition if you: \.br\ ? \.br\ Drink too much alcohol.\.br\ ? \.br\ Have diabetes.\.br\ ? \.br\ Are obese.\.br\ ? \.br\ Are exposed to hepaFisher [facility] Office/Clinic Noteon 44-23-1298Stwgsv Medicine Office/Clinic NoteChief Complaint Here for 1 month follow up [...] of the following symptoms? Vision problems? No GI-Nausea/committing/bloating? No Lightheadedness? No Paresthesias, Ulcerations or sores? [...] this patient does _ have family history ofcolon cancer Breast cancer screening: _ ; this patient does _ have a family history of breast cancer Pap smear: _ DEXA: _ Labs: 08/10/2023 at [facility] Diabetes/ prediabetes: Eye exam: _ done by _ Foot exam: 08/10/2023 done by Ladonna VILLATORO A1c: Hgb A1C %: 6.3 % High (08/20/22 15:02:00) Smokers/ former smokers: Low dose lung CT: _ List of Providers: Assessment Technician: DR Ramirez Catering Chef: Dr Phillip Orthopaedics: Dr Martinez LABS Cr/eGFR: eGFR: >60 (08/05/2023) Creatinine: 0.6 mg/dL (08/10/2023) A1c: Hgb A1C %: 5.4% (08/10/2023) TSH: TSH: 4.64 mcIU/mL (08/20/22 15:02:00) Vit D: No qualifying data available. LDL: LDL Direct: 67 mg/dL (08/10/2023) Lipids: Chol: 206 mg/dL (08/10/2023) HDL: 95 mg/dL (08/10/2023) LDL Direct: 67 mg/dL (08/10/2023) Microalbumin: U Microalb: >12 mcg/mL (08/10/2023) Future Appointments [facility].Cardiology Clinic Doc Appt. Date: 12/06/2023 3:15 PM Scheduled Provider: Adam SAMPSON, Alirio Hooper [address] [place] [address], [address] Fax: [phone] [address] [place] [address], [address] Phone: -- Fax: -- [address] [place] [address], [address] Phone: -- Fax: -- [facility] Appt. Date: 12/23/2023 10:30 AM Scheduled Provider: ENDO 3 FT Phone: -- Fax: -- [facility] Appt. Date: 12/23/2023 12:00 PM Scheduled Provider: LADY 1 FT Phone: -- Fax: -- [facility] Appt. Date: 01/13/2024 10:45 AM Scheduled Provider: Marjan SAMPSON, Walker Pritchett [address] [place] [address], [address] [facility] [address] [place], [address] Phone: [phone] Fax: [phone] The patient has transitioned to using a [...] without difficulty but struggles slightly when ascending. However,she emphasized that she is not sedentary and does not spend much time sitting around at home. She remy s an appointment with Dr. Menendez, who subsequently [...] potatoes from her diet, as well as areduction in her sodium intake. The patient reports being sober for a period of 51 days and expresses commitment to maintaining sobriety long-term. She expresses fear of consuming alcohol due to past negative relapse experience (more content not included)...[facility]zer Health SystemComment on above:Result Comment: Electronically Signed By: Nigel SMITH, Paris ESPINO\.br\Date and Time Signed: 11/25/23 20:36 EDT\.br\Electronically Co-Signed By: Seven Ruelas\.br\Date and Time Co- Signed: 11/25/23 16:37 EDTPatient Educationon 74-35-9560Wgmngvb Education Hepatomegaly Hepatomegaly is when a person's [...] to follow these instructions. Medicines ? Take retk-lfx-nemkldn and prescription medicines only as told by your health care provider. ? Do not start taking any new medicine unless your health care provider has approved. These iygvarefsbw-dlm-qarljtp medicines, vitamins, herbs, and supplements. Some of [...] provider. Document Revised: 05/19/2022 Document Reviewed: 05/19/2022 [employer] Patient Education ? 2022 [employer]. Endocrinology Type 2 Diabetes Mellitus, Self-Care, [...] your blood glucose every (more content not included)...NormalWooster Community HospitalBasi Metabolic Profon 78-52-4665Jckjh gap [Moles/Vol]10 mmol/LNormal9-17[facility] HospitalComment on above:Performed By: #### BMP, BNP ####[facility] [address] [place], [place] [address]( [phone] Director: Yury Caba MDBUN/CRE Atnqh03Ikyosi1-50Gqiyj Willard HospitalComment on above:Performed By: #### BMP, BNP ####[facility] [address] [place], [place] [id number] Lab Director: KASH Joshialcium [Mass/Vol]9.2 mg/dLNormal8.6-10.4[facility]st HospitalComment on above:Performed By: #### BMP, BNP ####[facility] [address] [place] [address] Lab Director: KASH Joshihloride [Moles/Vol]99 mmol/UQrqlwa38-484EfbdeCleveland Clinic Hillcrest HospitalComment on above: Performed By: #### BMP, BNP ####[facility] [address] [place] [address] Lab Director: KASH JoshiO2 [Moles/Vol]24 mmol/KRlnotv71-13NjuijCleveland Clinic Hillcrest HospitalComment on above:Performed By: #### BMP, BNP ####[facility] [address] [place] [address]( [phone] Director: KASH Joshireatinine [Mass/Vol]0.7 mg/dLNormal 0.5-0.9[facility] HospitalComment on above:Performed By: #### BMP, BNP ####[facility] [address] [place] [phone] Director: Yury Caba MDGFR/1.73 sq M.predicted among non-blacks MDRD (S/P/Bld) [Vol rate/Area]mL/min/{1.73_m2}Normal>60[facility] Hill[facility] HospitalComdetroit receiving hospital on above:Result Comment: These results are not intended for [...] or following therapy that affects renal tubular secretion.Performed By: #### BMP, BNP ####[facility] [address] [place] [phone] Director: Yury Caba MDGlucose [Mass/Vol]107 mg/vZFbpd08-01RylwxUniversity Hospitals TriPoint Medical CenterComment on above:Performed By: #### BMP, BNP ####[facility] [address] [place] [id number] Lab Director: DEZ Joshiotassium [Moles/Vol]4.7 mmol/LNormal3.7-5.3MUniversity Hospitals TriPoint Medical CenterComment on above:Performed By: #### BMP, BNP ####[facility] [address] [place] [address] Lab Director: Yury Caba MDSodium [Moles/Vol]133 mmol/EFnc318-455WppeqCleveland Clinic Hillcrest HospitalComment on above:Performed By: #### BMP, BNP ####[facility] [address] [place] [address] Lab Director: Yury Caba MDUrea nitrogen [Mass/Vol]14 mg/dLNormal8-23[facility] HospitalComment on above: Performed By: #### BMP, BNP ####[facility] [address] [place] [address] Lab Director: Yury Caba MDBrain Natri. Peptideon 77-23-2153Gqckriixapo peptide B (Bld) [Mass/Vol]164 pg/mLNormal<300 [facility] HospitalComdetroit receiving hospital on above:Result Comment: An age-independent cutoff point of 300 pg/ml has a 98% negative predictive value excluding acute heart failure.Performed By: #### BMP, BNP ####[facility] [address] [place] [address] Lab Director: Yury Caba MDOutside Labson 03-68-2958Izogupy [facility] [id number]#1.00TIFFNoalWooster Community HospitalConsent for Treatmenton 70-36-6658Pqcbzgf for Treatment [id number]#1.00TIFFHolzer Health SystemConsent for Procedure/Surgeryon 90-90-9723Zszhnux for Procedure/Surgery [id number]#1.00TIFFHolzer Health SystemFL ARTHR/ASP/INJ MAJOR JT/BURSA RT WO USon 46-57-1968DQ ARTHR/ASP/INJ MAJOR JT/BURSA RT WO US Begin Addendum #1 FLUORO DOSE: 84. 497 mGy Reference air kerma (Ka,r) Interpreted by: Casa Minor Jr., MD Signed by: Casa Minor Jr., MD 11/04/23 Edited Result - [facility] ARTHROGRAM RIGHT HIP S AND I on 76-70-5290AO ARTHROGRAM RIGHT HIP S AND I Begin Addendum #1 FLUORO DOSE: 84. 497 mGy Reference air kerma (Ka,r) Interpreted by: Casa Minor Jr., MD Signed by: Casa Minor Jr., MD 11/04/23 Edited Result - [facility] CenterFL GUIDED NEEDLE PLACEMENTon 81-86-0534MN GUIDED NEEDLE PLACEMENT Begin Addendum #1 FLUORO DOSE: 84. 497 mGy Reference air kerma (Ka,r) Interpreted by: Casa Minor Jr., MD Signed by: Casa Minor Jr., MD 11/04/23 Edited Result - [facility] CenterAmbulatory Visit Summaryon 44-07-0028Qytrlfkeie Visit Summary CARMEN BLEDSOE :1960 Visit Date:11/02/2023 Ambulatory Visit Instructions Your Diagnosis Elevated LFTs Hepatomegaly History of alcohol abuse History of colon polyps Smoker Your Care Team Attending Physician - Marjan SAMPSON, Walker Pritchett Primary Care Physician - Nigel MSN, HEEL COVER SOFTENER-DRAPERY HEMMER [employer], [place] Hamilton This Is Your Medications List Contact [...] oral tablet) fluoxetine (FLUoxetine 20 mg Cap) fluticasone-salmeterol (Advair Diskus 100 mcg-50 mcg inhalation powder) [...] implant bilat, Knee replacement, L foot bunion/reconstruction. Discharge Vitals Heart Rate (Peripheral) 78 Respiratory Rate 18 Blood Pressure 118/60 Height 168 cm Height 66 in What to do next Scheduled Follow-Up Appointments Tuesday 3:00 PM EDT With: Where: FT.[facility] [place] 2023 3:00 PM EDT With: [facility]: [facility] WillardInvalid Interpretation [address] [place] [address]- \.br\ Tuesday 3:15 PM EDT \.br\ With:Adam SAMPSON, Alirio Hooper\.br\ Where: [facility] Cardiology Clinic Doc\.br\ Tuesday 10:30AM EDT \.br\ With:\.br\ Where: [facility]\.br\ Tuesday 12:00 PM EDT \.br\ With:\.br\ Where: [facility]\.br\ Tuesday 10:45 AM EDT \.br\ With: Marjan SAMPSON, Walker Pritchett\.br\ Where: [facility] HealthWooster Community HospitalGastroenterology Office/Clinic Noteon 23-07-6568Vewlawcsewkpdgrx Office/Clinic NoteChief Complaint elevated LFT's, hepatomegaly, hx ETOH abuse HPI Staff Patient is a 62 year old female who was referred by Nigel for elevated LFT's and hepatomegaly. Hx alcohol abuse, current smoker (cigarettes), marijuana user, hx of pain pill use (stopped at age 52). Father had liver cancer. Mother had stomach cancer. No fam. hx colon cancer. Denies blood thinner use. liver 08/24/23 @ [facility]: IMPRESSION: Hepatomegaly and hepatic steatosis. EGD/Colon 03/17/20 @ [facility]: POSTOPERATIVE DIAGNOSES: 1. Antral gastritis. 2. Pedunculated [...] POLYP BIOPSY: TUBULAR ADENOMA. CBC/CMP 08/10/23 @ [facility]: RBC: (L) 3.78 MCV (H) 102.6 Alk [...] Will get chronic liver disease panel Ordered: Slwvx-6-Hvgtinbuozc KIM w/Reflex if POS Antimitochondrial Antibody, Quantitative Colonoscopy (Hospital Procedure) Comprehensive Metabolic Panel Current tobacco smoker 1034F E&M of New Patient Moderate 45-59 Min 83150 EGD Endoscopy (Hospital Procedure) Ferritin Fibroscan (Hospital [...] E&M of New Patient Moderate 45-59 Min 28184 EGD Endoscopy (Hospital Procedure) 3. History of alcohol abuse (F10.11: Alcohol abuse, in remission) Ordered: Colonoscopy (Hospital Procedure) E&M of New Patient Moderate 45-59 Min 08944 EGD Endoscopy (Hospital Procedure) 4. History of colon polyps (Z86.010: Personal history of colonic polyps) Had multiple TA's 2020, repeat colonoscopy Ordered: Colonoscopy (Hospital Procedure) E&M of New Patient Moderate 45-59 Min 26890 EGD Endoscopy (Hospital Procedure) 5. Smoker (F17.200: Nicotine dependence, unspecified, uncomplicated) Consulted Ordered: Colonoscopy (Hospital Procedure) E&M of New Patient Moderate 45-59 Min 31881 EGD Endoscopy (Hospital Procedure) Follow-up No qualifying [...] implant bilat, Knee replacement, L foot bunion/reconstruction. Medications Abilify 2 mg Tab, 2 mg= 1 tab(s), Oral, Daily, 3 refills Advair Diskus 100 mcg-50 mcg inhalation powder, See Instructions albuterol 0.083% Inh Rochelle 3 mL, 2.5 mg= 3 mL, Inhalation, q6hr, PRN, 1 refills Alcohol wipes, See Instructions, 3 refills Crestor 40 mg Tab, 4 (more content not included)...Holzer Health SystemComment on above:Result Comment: Electronically Signed By: Marjan SAMPSON, Walker Pritchett\.br\Date and Time Signed: 11/02/23 11:03 EDTPhysician Orderon [id number] [id number]#1.00TIFF Holzer Health SystemFalyman school for boys Medicine Office/Clinic Noteon 10-27-2023 Family Medicine Office/Clinic NoteChief Complaint Pt presents for 2 week f/u Paula leg swelling. No concerns History of Present [...] this patient does _ have family history ofcolon cancer Breast cancer screening: _ ; this patient does _ have a family history of breast cancer Pap smear: years DEXA: NA Labs: 2022 Diabetes/ prediabetes: Eye exam: _ done by _ Foot exam: 08/10/2023 done by Ladonna VILLATORO A1c: Hgb A1C %: 6.3 % High (08/20/22 15:02:00) Smokers/ former smokers: Low dose lung CT: _ List of Providers: Assessment Technician: Dr Ramirez Gastrointestinal: Dr Phillip LABS Cr/eGFR: [...] Microalb: 4.6 mcg/mL (08/20/22 15:02:00) Future Appointments [facility] Appt. Date: 11/02/2023 10:30 AM Scheduled Provider: Marjan SAMPSON, Walker Pritchett [address] [facility], [facility] [address], [address] Phone: [phone] Fax: [phone] [facility] SERGEI Yarbrough Appt. Date: 11/10/2023 3:00 PM Scheduled Provider: SERGEI Yarbrough Nurse Phone: -- Fax: -- [facility] [place] Appt. Date: 12/06/2023 3:15 PM Scheduled Provider: Adam SAMPSON, Alirio Hooper [address] [place], [address] Fax: [phone] She admitted that she relapsed on her drinking and started drinking heavy on the rum after being sober. States after going to the ER and having a health scare of the heart failure and lower extremityedema and difficulty breathing she has since stopped. Still continues to smoke. States the edema inher legs have since improved. Still feels weak but declines physical therapy. Sisters questioning [facility] or even an AA meeting, patient declines. States she has gotten rid of all of her alcohol out of her house and she is not hiding any bottles anywhere. She is aware that her drinking is what is put her in the situation she is in now. Does have a appointment with the GI doctor up at [facility] for her hepatomegaly and elevated liver. She is due for her colonoscopy, and she is well aware that the GI doctor will probably have her do 1 andshe is okay with that. States what ever [...] preserved ejection fraction (I50.30: Unspecified diastolic (congestive) heartfailure) Does follow-up with Dr. Ramirez in the [place] office. Has been on her Lasix and spironolactone. At her last visit she informing that she was out of her spironolactone so she was just taking the Lasix. The ER doctor had her double up on the Lasix. I did send in for refill on this proctoscopyon the last visit. Overall the swelling has [...] to let the office (more content not included)...Holzer Health SystemComment on above:Result Comment: Electronically Signed By: SRINIVAS Pereyra Tammy L.\.br\Date and Time Signed: 10/27/23 08:09 EDT\.br\Electronically Co-Signed By: Safia Greenberg\.br\Date and Time Co-Signed: 10/26/23 16:02 EDTAmbulatory Visit Summaryon 15-75-9710Zmekudoouv Visit Summary CARMEN BLEDSOE :1960 Visit Date:10/26/2023 [...] oral tablet) fluoxetine (FLUoxetine 20 mg Cap) fluticasone-salmeterol (Advair Diskus 100 mcg-50 mcg inhalation powder) [...] implant bilat, Knee replacement, L foot bunion/reconstruction. Discharge Vitals Heart Rate (Peripheral) 77 Respiratory Rate 16 Blood Pressure 122/78 Height 168 cm Height 66 in Weight 148.3 kg Weight 326.26 lb BMI 52.54 What to do next Scheduled Follow-Up Appointments Tuesday 10:30 AM EDT With: Marjan SAMPSON, Walker Pritchett [facility] Interpretation Code [address] [place] [address]- \.br\ Tuesday 2:40 PM EDT \.br\ With:Nigel SMITH, HEEL COVER SOFTENER-DRAPERY HEMMER AUTOMATICParis\.br\ Where: [facility] HospitalInsurance Correspondenceon 82-36-1377Mixzjtyml Correspondence [id number]#1.00TIFFHolzer Health SystemPatient Educationon 08-76-1297Qpiywph EducationCardiovascular Heart Failure, Self-Care Heart failure is a [...] when you have heart failure Medicines Take kgbr-svs-ylivzkw and prescription medicines only as told by [...] needed to keep or improve your independence andquality of life. ? Participate in a cardiac [...] date with vaccines. Pneu (more content not included)...[facility]zer Health SystemAmbulatory Visit Summaryon 35-76-2395Izqksmreqy Visit Summary CARMEN BLEDSOE :1960 Visit Date:10/25/2023 Ambulatory Visit Instructions Your Diagnosis Benign hypertension Mixed hyperlipidemia Bilateral leg edema Your Care Team Attending Physician - Adam SAMPSON, Alirio Briggs. Primary Care Physician - Nigel MSN, DARLEEN-Paris VILLATORO Referring Physician - NONE, XXXX This Is [...] oral tablet) fluoxetine (FLUoxetine 20 mg Cap) fluticasone-salmeterol (Advair Diskus 100 mcg-50 mcg inhalation powder) [...] implant bilat, Knee replacement, L foot bunion/reconstruction. Discharge Vitals Heart Rate (Peripheral) 96 Blood Pressure 128/76 Height 168 cm Height 66 in Weight 148.9 kg Weight 327.58 lb BMI 52.76 What to do next Scheduled Follow-Up Appointments Tuesday 1:20 PM EDT With: Nigel SMITH, Paris ESPINO Where: [facility]ardInvalid Interpretation [address] [place] [address]- [phone]\.br\ 2023 3:00 PM EDT \.br\ With:\.br\ Where: [facility] Memorial HospitalConsent for Treatmenton 47-63-2712Btsjkcm for Treatment [id number]#1.00TIFFNormVeterans Health AdministrationHeart and Vascular Office/Clinic Noteon 96-16-5619Rrfkt and Vascular Office/Clinic NoteChief Complaint B/L EDEMA History of Present Illness 62-year-old female with history of bilateral lower extremity edema and diastolic heart failure as well as obesity, tobacco smoking, hypertension, hyperlipidemia. Negative stress test last year. Recently was having increased shortness of breath and lower extremity swelling went to [facility] and was told to take extra furosemide [...] implant bilat, Knee replacement, L foot bunion/reconstruction. Medications Abilify 2 mg Tab, 2 mg= [...] PRN, 1 refills Vi (more content not included)...[facility]zer Health SystemComment on above:Result Comment: Electronically Signed By: Adam SAMPSON, Alirio Hooper\.br\Date and Time Signed: 10/25/23 15:21 EDTAmbulatory Visit Summaryon 43-04-6310Tldnjqkrvc Visit Summary CARMEN BLEDSOE :1960 Visit Date:10/11/2023 Ambulatory Visit Instructions Your Diagnosis Heart failure with preserved ejection fraction Type 2 diabetes mellitus with morbid obesity Benign hypertension Class 3 severe obesity due to excess calories with serious comorbidity in adult BMI 50.0-59.9, adult Your Care Team Attending Physician - Nigel MSN, HEEL COVER SOFTENER-[place] VILLATORO Primary Care Physician - Nigel MSN, DARLEEN-Paris VILLATORO This Is Your Medications List Misc [...] oral tablet) fluoxetine (FLUoxetine 20 mg Cap) fluticasone-salmeterol (Advair Diskus 100 mcg-50 mcg inhalation powder) [...] implant bilat, Knee replacement, L foot bunion/reconstruction. Discharge Vitals Temperature (Oral) 37 ?C Heart Rate (Peripheral) 65 Respiratory Rate 20 Blood Pressure 144/90 Height 168 cm Height 66 in Weight 160.2 kg Weight 352.44 lb BMI 56.76 What to do next Scheduled Follow-Up Appointments Tuesday 3:00 PM EDT With: Adam SAMPSON, Alirio Hooper Where: Cardiology Clinic Tuesday 1:20 PM EDT With: Nigel MSN, HEEL COVER SOFTENER-DRAPERY HEMMER [employer], Paris Hamilton Where: [facility] Medicine [address] [address]- \.br\ You Need to Schedule the Following Appointments\.br\ Follow Up with Nigel SMITH, HEEL COVER SOFTENER-DRAPERY HEMMER [employer], Paris Hamilton When: In 2 weeks\.br\ Comments:\.br\ chronic care\.br\ Where:\.br\ [facility] Codingpeople\.br\ [place] [address]\.br\Medications\.br\ What How Much When Why Instructions\.br\ New albuterol (albuterol 0.083% Inh Rochelle 3mL) 3 Milliliter Inhalation Every 6 hours as needed for Shortness of breath or wheezing Refills: 1 Pickup at [facility] #[id number]\.br\ Changed dulaglutide (Trulicity Pen 1.5 mg/ 0.5 mL subcutaneous solution) 1.5 Milligram Subcutaneous Every week Pickup at [facility] #[id number]\.br\ Changed spironolactone (spironolactone 25 mg Tab) 1 Tablets By Mouth Every day Duration: 90 Days Pickup at [facility] #[id number]\.br\Unchanged Misc Prescription (Nebulizer Machine) See instructions Moderate persistent asthma Nebulizer Machine Pickup at [facility] #[id number]\.br\ Unchanged Misc Prescription (Nebulizer Tubing and Mouthpiece Kit) See instructions Moderate persistent asthma Nebulizer Tubing and Mouthpiece Kit Pickup at [facility] #[id number]\.br\ Unchanged trazodone (traZODONE 50 mg Tab) 1 Tablets By Mouth Once a day (at bedtime) Pickup at [facility] #[id number]\.br\ Unchanged albuterol (Ventolin HFA 90 mcg/ inh Aerosol-Adpt) 2 Puffs Inhalation Every 6 hours as needed for for wheezing Contact prescribing physician if questions orconcerns \.br\ Unchanged aripiprazole (Abilify 2 mg Tab) [...] physician if questions or concerns \.br\ Unchanged fluticasone-salmeterol (Advair Diskus 100 mcg-50 mcg inhalation powder) See instructions Contact prescribing physician if questions or concerns \.br\ Unchanged furosemide (furosemide 40 mg Tab) 1 Tablets By Mouth Every day Contact prescribing physician if questions or concerns \.br\ Unchanged glipiZIDE (glipiZIDE 2.5 mg ER Tab) 1 Tablets By Mouth Every day Contact prescribing physician ifquestions or concerns \.br\ Unchanged Misc Prescription (Alcohol [...] prescribing physician if questions or concerns \.br\ UnchangedMisc Prescription (Test Strips) See instructions Type 2 [...] day Contact prescribing physician if questions or concerns\.br\ Unchanged tizanidine (tiZANidine 4 mg Tab) 1 [...] or concerns \.br\ Pharmacy Information\.br\ [id number]: [address], [place] [id number] [phone]\.br\ \.br\ What How Much When Comments\.br\ Stop Taking celecoxib (CeleBREX 200 mg Cap) 1 Capsules By Mouth 2 times a day as needed for as needed for pain with food \.br\ Allergies\.br\ amLODIPine (Leg Edema)\.br\ lisinopril (Persistent cough, Tongue swelling)\.br\ metFORMIN (Diarrhea)\.br\ Problems\.br\ Ongoing - Any problem that you are currently receiving treatment for.\.br\ Alcohol problem drinking\.br\ Benign hypertension\.br\ Bilateral leg edema\.br\ BMI 50.0-59.9, adult\.br\ Chronic insomnia\.br\ Cigarette smoker\.br\ Class 3 severe obesity due to excess calories with serious comorbidity in adult\.br\ Elevated liver transaminase level\.br\ Encounter for medication management\.br\ Fatty liver\.br\ GA (granuloma annulare)\.br\ GERD (gastroes ophageal reflux disease)\.br\ Heart failure with preserved ejection fraction\.br\ Hypokalemia\.br\ Left hand weakness\.br\ Low vitamin D level\.br\ Medication management\.br\ Mixed hyperlipidemia\.br\ Moderate persistent asthma\.br\ Neurogenic claudication\.br\ Obstructive sleep apnea\.br\ Restless leg syndrome\.br\ Right hip pain\.br\ Sciatica\.br\ Seborrheic keratoses\.br\ Severe major depression\.br\ Skin tags, multiple acquired\.br\ Type 2 diabetes mellitus with morbid obesity\.br\ Uterine fibroid\.br\ Historical - Any problem that you are no longer receiving treatment for.\.br\ COPD exacerbation\.br\ Tubular adenoma of colon\.br\ Patient Survey\.br\ You may receive a survey via text ore-mail asking about your office visit. Please share your experience with us by completing your survey. We appreciate your feedback and thank you for choosing us for your care.\.br\ Education Materials\.br\ Type 2 Diabetes Mellitus, Self-Care, Adult\.br\ Caring for yourself after you have been diagno sed with type 2 diabetes (type 2 diabetes [...] personalized treatment goals for you. Generally, the [facility] Medicine Office/Clinic Noteon [id number] Medicine Office/Clinic NoteChief Complaint Pt presents for [facility] ER F/U 10/06/23 for difficulty breathing. Paula leg swelling HPI Staff ER followup: Hospital: [facility] Visit date:FGDL7T 10/06/23 Symptoms the patient presented with: difficulty breathing Symptom onset/injury onset: Testing Performed: New medications: New specialist involved Therapy ordered: Next appointment date: Current concerns: Pt C/O paula leg swelling. History of Present Illness a 62-year-old female presenting today for an ER visit due to difficulty breathing. She is accompanied by her sister. She was recently at [facility], ER for difficulty breathing. She was found to [...] days, she states that has helped with thebreathing as well as decreasing the edema. She [...] relief for her for only 2 weeks[address] that on the way she could have [...] a referral from me to gastrointestinal at [facility] for further evaluation of her hepatomegaly with elevated liver enzymes. Currently denies nausea/vomiting/diarrhea, states swelling continues in her lower extremity [...] preserved ejection fraction (I50.30: Unspecified diastolic (congestive) heartfailure) The patient was recently admitted to [facility] on 10/06/2023 due to respiratory distress, which led to a diagnosis of heart failure. She exhausted her spironolactone supply and was subsequently advised to double her Lasix dosage, with the final dose scheduled for today. We will send her a refill for her spironolactone. She has an appointment scheduled with her excavation laborer, Dr. Ramirez, later this month. Given her recent weight gain, it is evident that fluid accumulation results in a resurgence of her condition. She is also scheduled to consult with a linter drier operator for an enlarged liver. I am concerned [...] -Take medications as pres (more content not included)...[facility]zer Health SystemComment on above:Result Comment: Electronically Signed By: Nigel SMITH, HEEL COVER SOFTENER-DRAPERY HEMMER [employer]OMATIC, [place] Hamilton\.br\Date and Time Signed: 10/11/23 20:33 EDT\.br\Electronically Co-Signed By: Safia Greenberg\.br\Date and Time Co-Signed: 10/11/23 19:41 EDTPatient Educationon [id number] EducationCardiovascular Heart Failure Exacerbation Heart failure is a [...] these instructions at home: Medicines ? Take cyqw-htl-qeaczoh and prescription medicines only as told by your health care provider. ? Do not stop taking your medicines or change the amount you take. If you are having problems or side effects from your medicines, talk to your health care provider. ? If you are having difficulty paying for your medicines, contact a social services aide or your clinic. There are many programs [...] exercise, and daily tasks (more content not included)...Normal Magana [facility] CenterED Note-Physicianon [id number] Note-Physician [id number]#1.00TIFFNormalFisher Medstar Good Samaritan HospitalBasic Metabolic Profon 73-86-0943Jfowx gap [Moles/Vol]12 mmol/LNormal9-17 [facility] HospitalComment on above:Performed By: #### BNP, DIME, BMP, TROPI, CDP #### [facility] [address] [place] [address] Tip Fixer: KASH Joshialcium [Mass/Vol]9.0 mg/dLNormal8.6-10.4[facility] HospitalComment on above:Performed By: #### BNP, DIME, BMP, TROPI, CDP #### [facility] [address] [place] [address] Tip Fixer: KASH Joshihloride [Moles/Vol]100 mmol/SBaldni76-377WyiqaCleveland Clinic Hillcrest HospitalComment on above:Performed By: #### BNP, DIME, BMP, TROPI, CDP #### [facility] [address] [place] [address] Tip Fixer: Yury Caba MDCO2 [Moles/Vol]24 mmol/RQbewkc69-64YbcisCleveland Clinic Hillcrest HospitalComdetroit receiving hospital on above:Performed By: #### BNP, DIME, BMP, TROPI, CDP #### [facility] [address] [place] [address] Tip Fixer: KASH Joshireatinine [Mass/Vol]0.5 mg/dLNormal0.5-0.9[facility] HospitalComment on above:Performed By: #### BNP, DIME, BMP, TROPI, CDP #### [facility] [address] [place] [address] Tip Fixer: Yury Caba MDGFR/1.73 sq M.predicted among non-blacks MDRD (S/P/Bld) [Vol rate/Area]mL/min/{1.73_m2}Normal>60[facility] HospitalComment on above:Result Comment: These results are not intended for [...] or following therapy that affects renal tubular secretion.Performed By: #### BNP, DIME, BMP, TROPI, CDP #### [facility] [address] [place] [address] Tip Fixer: Yury Caba MDGlucose [Mass/Vol]122 mg/aXMmbv80-31MaekvUniversity Hospitals TriPoint Medical CenterComment on above:Performed By: #### BNP, DIME, BMP, TROPI, CDP #### [facility] [address] [place] [address] Tip Fixer: DEZ Joshiotassium [Moles/Vol]3.4 mmol/LLow3.7-5.3MUniversity Hospitals TriPoint Medical CenterComment on above:Performed By: #### BNP, DIME, BMP, TROPI, CDP #### [facility] [address] [place] [id number] Tip Fixer: SANDRA Joshiodium [Moles/Vol]136 mmol/JNaqlbc172-373VkrinCleveland Clinic Hillcrest HospitalComment on above:Performed By: #### BNP, DIME, BMP, TROPI, CDP #### [facility] [address] [place] [id number] Tip Fixer: Yury Caba MDUrea nitrogen [Mass/Vol]14 mg/dLNormal8-23MerUpstate University HospitalComment on above:Performed By: #### BNP, DIME, BMP, TROPI, CDP #### [facility] [address] [place] [address] Tip Fixer: Yury Caba MDBrain Natri. Peptideon 14-55-6109Tiqspmcohed peptide B (Bld) [Mass/Vol]3161 pg/mLHigh<300MerUpstate University HospitalComment on above:Result Comment: An age-independent cutoff point of 300 pg/ml has a 98% negative predictive value excluding acute heart failure.Performed By: #### BNP, DIME, BMP, TROPI, CDP #### [facility] [address] [place] [id number] Tip Fixer: KASH Joshi with Diffon [id number]. Basophil0.02 k/uL Normal0.00-0.20MerMansfield Hospital HospitalComment on above:Performed By: #### BNP, DIME, BMP, TROPI, CDP #### [facility] [address] [place] [address] Tip Fixer: Arian Joshi.Imm.Granulocyte0.02 k/uLNormal0.00-0.30MerUpstate University HospitalComment on above:Performed By: #### BNP, DIME, BMP, TROPI, CDP #### [facility] [address] [place] [address] Tip Fixer: Arian Joshi.Neutrophil (Seg)4.75 k/uLNormal2.5-7.0MerUpstate University HospitalComment on above:Performed By: #### BNP, DIME, BMP, TROPI, CDP #### [facility] [address] [place], [place] [id number] Tip Fixer: Yury Caba MDBasophils/100 WBC (Bld)0 %Normal0-2MUniversity Hospitals TriPoint Medical CenterComment on above:Performed By: #### BNP, DIME, BMP, TROPI, CDP #### [facility] [address] [place] [address] Tip Fixer: LENA Joshiosinophils (Bld) [#/Vol]0.03 10*3/uLNormal 0.00-0.40[facility] HospitalComment on above:Performed By: #### BNP, DIME, BMP, TROPI, CDP #### [facility] [address] [place] [address] Tip Fixer: LENA Joshiosinophils/100 WBC (Bld)1 %Normal0-5[facility] HospitalComment on above:Performed By: #### BNP, DIME, BMP, TROPI, CDP #### [facility] [address] [place] [address] Tip Fixer: Yury Caba MDErythrocyte distribution width (RBC) [Ratio]13.8 % Wnneik32.1-15.2MUniversity Hospitals TriPoint Medical CenterComment on above:Performed By: #### BNP, DIME, BMP, TROPI, CDP #### [facility] [address] [place] [address] Tip Fixer: Yury Caba MDHematocrit (Bld) [Volume fraction]36.4 %Normal 36.0-46.0[facility]enan Private Hospitalment on above:Performed By: #### BNP, DIME, BMP, TROPI, CDP #### [facility] [address] [place] [address] Tip Fixer: Yury Caba MDHemoglobin (Bld) [Mass/Vol]12.5 g/dLNormal 12.0-16.0[facility] HospitalComment on above:Performed By: #### BNP, DIME, BMP, TROPI, CDP #### [facility] [address] [place] [id number] Tip Fixer: Ailin Joshi granulocytes/100 WBC (Bld)0 %Normal0-5 [facility] on above:Performed By: #### BNP, DIME, BMP, TROPI, CDP #### [facility] [address] [place] [address] Tip Fixer: Penelope Joshimphocytes (Bld) [#/Vol]0.54 10*3/uLLow1.00-4.80 [facility] on above:Performed By: #### BNP, DIME, BMP, TROPI, CDP #### [facility] [address] [place] [address] Tip Fixer: Beatrice Joshihocytes/100 WBC (Bld)9 %Zqc74-45LigerCleveland Clinic Hillcrest HospitalComment on above:Performed By: #### BNP, DIME, BMP, TROPI, CDP #### [facility] [address] [place] [address] Tip Fixer: MARIAJOSE Joshi (RBC) [Entitic mass]34.1 ceUpmd66.0-34.0[facility] HospitalComment on above:Performed By: #### BNP, DIME, BMP, TROPI, CDP #### [facility] [address] [place] [address] Tip Fixer: MARIAJOSE JoshiC (RBC) [Mass/Vol]34.3 g/oUMkavwk53.0-37.0[facility] HospitalComment on above:Performed By: #### BNP, DIME, BMP, TROPI, CDP #### [facility] [address] [place] [id number] Tip Fixer: KATHIE JoshiCV (RBC) [Entitic vol]99.2 eZRscfzs41.0-100.0 [facility] HospitalComment on above:Performed By: #### BNP, DIME, BMP, TROPI, CDP #### [facility] [address] [place] [address] Tip Fixer: KATHIE Joshionocytes (Bld) [#/Vol]0.47 10*3/uLNormal0.00-1.00 [facility] HospitalComdetroit receiving hospital on above:Performed By: #### BNP, DIME, BMP, TROPI, CDP #### [facility] [address] [place] [address] Tip Fixer: KATHIE Joshionocytes/100 WBC (Bld)8 %Normal4-8[facility] HospitalComment on above:Performed By: #### BNP, DIME, BMP, TROPI, CDP #### [facility] [address] [place] [address] Tip Fixer: Veronika Joshi (Seg)82 %Rykq12-93ZvfulCleveland Clinic Hillcrest HospitalComment on above:Performed By: #### BNP, DIME, BMP, TROPI, CDP #### [facility] [address] [place] [address] Tip Fixer: Michael Joshi mean volume (Bld) [Entitic vol]9.0 fL Normal6.0-12.0[facility] HospitalComdetroit receiving hospital on above:Performed By: #### BNP, DIME, BMP, TROPI, CDP #### [facility] [address] [place] [address] Tip Fixer: James Joshi (Bld) [#/Vol]176 10*3/bGIlmhzg104-261 [facility] HospitalComdetroit receiving hospital on above:Performed By: #### BNP, DIME, BMP, TROPI, CDP #### [facility] [address] [place] [address] Tip Fixer: RHIANNON Joshi (d) [#/Vol]3.67 10*6/uLLow4.00-5.20[facility] HospitalComment on above:Performed By: #### BNP, DIME, BMP, TROPI, CDP #### [facility] [address] [place] [address] Tip Fixer: JAI Joshi ([facility]) [#/Vol]5.8 10*3/uLNormal3.5-11.0[facility] HospitalComment on above:Performed By: #### BNP, DIME, BMP, TROPI, CDP #### [facility] [address] [place] [address] Tip Fixer: CASSIE Joshi-Dimer Teston [id number]-Dimer Test0.68 ug/mL FEUHigh0.00-0.59[facility] HospitalComment on above:Result Comment: When combined with a low clinical [...] be more prevalent in patients with distal DVT.Performed By: #### BNP, DIME, BMP, TROPI, CDP #### [facility] [address] [place] [address] Tip Fixer: LURDES Joshi - MISCon 61-82-6775[facility] [id number] Medstar Good Samaritan HospitalTroponinon 75-42-9556Sxlovfqg, High Sens27 ng/LHigh0-14[facility] HospitalComment on above:Result Comment: High Sensitivity Troponin values cannot be compared with other Troponin methodologies.Performed By: #### BNP, DIME, BMP, TROPI, CDP #### [facility] [address] [place] [address] Tip Fixer: Yury Caba, MDXR CHEST (2 VW)on [id number] CHEST (2 VW)EXAM: XR CHEST (2 VW) HISTORY: Shortness of breath COMPARISON: None. IMPRESSION: FINDINGS/IMPRESSION: 1. Shallow breath with clear lungs. 2. Mild cardiomegaly. Interpreted by: Casa Minor Jr., MD Signed by: Casa Minor Jr., MD 10/06/23 Final resultNormalCleveland Clinic Lutheran Hospital LIVERon [id number] LIVER EXAMINATION: RIGHT UPPER QUADRANT ULTRASOUND 08/24/2023 [...] Signed by: Braulio Crawley DO 08/24/23 Final resultNoOhioHealthHemoglobin A1Con 76-09-3768Iqngkea [Mass/Vol]108 mg/dLNormAshtabula County Medical CenterComment on above:Result Comment: The ADA and AACC recommend providing the estimated average glucose result to permit better patient understanding of their HBA1c result.Performed By: #### GLYHGB, LIPR, URNMAB ####[facility] [address] [place] [address] Lab Director: Agusto Ferrell MD#### DYLAN NANE CP, ZFAST ####[facility] [address] [place], [place] [phone] Director: Yury Caba MDHbA1c (Bld) [Mass fraction]5.4 %Normal4.0-6.0 [facility] HospitalComment on above:Performed By: #### GLYHGB, LIPR, URNMAB ####[facility] [address] [place] [address] Lab Director: Agusto Ferrell MD#### DYLAN ANNE, CP, ZFAST ####[facility] [address] [place], [place] [address] Lab Director: Yury Caba MD Lipid Panelon [id number] [Mass/Vol]206 mg/dLHighNINF - 200 mg/dLBON J.W. RUBY MEMORIAL HOSPITALComment on above: Cholesterol Guidelines: <200 Desirable 200-240 Borderline >240 Undesirable Cholesterol in HDL [Mass/Vol]95 mg/dL40 - PINF mg/dLBON [facility] Comment on above: HDL Guidelines: <40 Undesirable 40-59 Borderline >59 Desirable Cholesterol in LDL [Mass/Vol]67 mg/dL0 - 130 mg/dLBON [facility] Comment on above: LDL Guidelines: <100 Desirable 100-129 Near to/above Desirable 130-159 Borderline >159 Undesirable Direct (measured) LDL and calculated LDL are not interchangeable tests. Cholesterol.total/Cholesterol in HDL [Mass ratio]2.2 {ratio}NINF - 5B[facility] J.[facility] MEMORIAL HOSPITALInterpretation and review of laboratory resultsAbnormRiverside Doctors' Hospital WilliamsburgTriglyceride [Mass/Vol]221 mg/dLHighNINF - 150 mg/dLBON [facility] on above: Triglyceride Guidelines: <150 Desirable 150-199 Borderline 200-499 High >499 Very high Based on AHA Guidelines for fasting triglyceride, April 2012. B[facility] RU[facility] MEMORIAL HOSPITALLipid Profileon 23-27-7008Qiehfmsoqlf [Mass/Vol]206 mg/dLHigh<200[facility] on above:Result Comment: Cholesterol Guidelines: <200 Desirable 200-240 Borderline >240 UndesirablePerformed By: #### GLYHGB, LIPR, URNMAB ####[facility] [address] [place] [address] Lab Director: Agusto Ferrell MD#### DYLAN ANNE, TAINA, ZFAST ####[facility] [address] [place] [address] Lab Director: Yury Caba MD Cholesterol in HDL [Mass/Vol]95 mg/dLNormal>40[facility] on above:Result Comment: HDL Guidelines: <40 Undesirable 40-59 Borderline >59 DesirablePerformed By: #### GLYHGB, LIPR, URNMAB ####[facility] [address] [place] [address] Lab Director: Agusto Ferrell MD#### DYLAN ANNE, CP, ZFAST ####[facility] [address] [place] [address] Lab Director: KASH Joshiholesterol in LDL [Mass/Vol]67 mg/dLNormal0-130[facility] on above:Result Comment: LDL Guidelines: <100 Desirable 100-129 Near to/above Desirable 130-159 Borderline >159 Undesirable Direct (measured) LDL and calculated LDL are not interchangeable tests.Performed By: #### GLYHGB, LIPR, URNMAB ####[facility] [address] [place] [address] Lab Director: Agusto Ferrell MD#### DYLAN ANNE, TAINA, ZFAST ####[facility] [address] [place] [phone] Director: Adan Joshi.total/Cholesterol in HDL [Mass ratio]2.2 {ratio}Normal<5MerUpstate University HospitalComment on above:Performed By: #### GLYHGB, LIPR, URNMAB ####[facility] [address] [place] [address] Lab Director: Agusto Ferrell MD#### DYLAN ANNE, TAINA, ZFAST ####[facility] [address] [place] [phone] Director: Yury Caba MDTriglyceride [Mass/Vol]221 mg/dLHigh<150[facility] HospitalComment on above:Result Comment: Triglyceride Guidelines: <150 Desirable 150-199 Borderline 200-499 High >499 Very high Based on AHA Guidelines for fasting triglyceride, April 2012.Performed By: #### GLYHGB, LIPR, URNMAB ####[facility] [address] [place] [address] Lab Director: Agusto Ferrell MD#### DYLAN ANNE CP, ZFAST ####[facility] [address] [place] [phone] Director: KATHIE Joshiicroalb.,Random Uron 60-25-1502Sbreiiyipx [Mass/Vol]45.3 mg/iPMnhndl74.0-217.0[facility] HospitalComment on above: Performed By: #### GLYHGB, LIPR, URNMAB ####[facility] [address] [place] [address] Lab Director: Agusto Ferrell MD#### DYLAN ANNE, TAINA, ZFAST ####[facility] [address] [place] [address] Lab Director: KATHIE Joshiicroalb/Creat RatioCan not be calculatedNormal<25MerUpstate University HospitalComment on above:Performed By: #### GLYHGB, LIPR, URNMAB ####[facility] [address] [place] [address] Lab Director: Agusto Ferrell MD#### DYLAN ANNE, CP, ZFAST ####[facility] [address] [place] [phone] Director: KATHIE Joshiicroalbumin conc.<12Normal<21MerUpstate University HospitalComment on above:Performed By: #### GLYHGB, LIPR, URNMAB ####[facility] [address] [place] [address] lab Director: Agusto Ferrell MD#### DYLAN ANNE, CP, ZFAST ####[facility] [address] [place], [place] [address] lab Director: Yury Caba MD Microalbumin, Uron 05-05-1346Rgdfven DL <= 20 mg/L (U) [Mass/Vol]mg/LNINF - 21 mg/LBON J.W. RUBY MEMORIAL HOSPITALAlbumin/Creatinine DL <= 20 mg/L (U) [Ratio]Can not be calculatedNINAVAL MEDICAL CENTER PORTSMOUTHCreatinine (U) [Mass/Vol]45.3 mg/dL28.0 - 217.0 mg/dLBON HANS P. PETERSON MEMORIAL HOSPITALXR HIP 2-3 VW W PELVIS RIGHTon [id number] HIP 2-3 VW W PELVIS RIGHTEXAM: XR HIP 2-3 VW W PELVIS RIGHT [...] Signed by: Zaid Romero MD 08/11/23 Final resultNoSelect Medical OhioHealth Rehabilitation Hospital - DublinXR Pelvis and Hip - right 2 Viewson 08-11-2023 Moderate degenerative joint space narrowing involves right hip without an acute osseous abnormality identified. [facility] CONSOLIDATEDEXAM: XR HIP 2-3 VW W PELVIS RIGHT [...] hip shows no fracture or stress injury. [facility] Zaid Pena MD - 08/11/2023 EXAM: XR HIP 2-3 [...] hip without an acute osseous abnormality identified. TheBlogTVXR Pelvis and Hip - right 2 ViewsOrdered By: Zaid Romero on [id number] [employer] Work Phone: CBC with Auto Differentialon [id number] (Bld) [#/Vol]0.03 10*3/uLBON Chapman InstrumentsBasophils/100 WBC (Bld)1 %0 - 2 %Kior [facility] CENTEREosinophils (Bld) [#/Vol]0.03 10*3/uLBON [facility] COMMUNITY HOSPITALPhosphagenics [facility] CENTEREosinophils/100 WBC (Bld)1 %0 - 5 %DIGNITY [facility]ALTH [facility] Chapman InstrumentsErythrocyte distribution width (RBC) [Ratio]14.6 %12.1 - 15.2 %[facility] Hematocrit (Bld) [Volume fraction]38.8 %36.0 - 46.0 %[facility] Hemoglobin (Bld) [Mass/Vol]12.8 g/dL12.0 - 16.0 g/dLBON [facility] Immature granulocytes (Bld) [#/Vol]0.01 10*3/uLBON J.W. RUBY MEMORIAL HOSPITALImmature granulocytes/100 WBC (Bld)0 %0 - 5 %WY[facility] COMMUNITY HOSPITALInterpretation and review of laboratory resultsAbnormalBON J.W. RUBY MEMORIAL HOSPITALLymphocytes/100 WBC (Bld)22 %15 - 40 %WYTHE COUNTY COMMUNITY HOSPITALLymphocytes/100 WBC (Bld)0.98 %LowBON MERCY [facility]FIELD HOSPITALH (RBC) [Entitic mass]33.9 pg26.0 - 34.0 pgBON [facility]FIELD HOSPITALHC (RBC) [Mass/Vol]33.0 g/dL31.0 - 37.0 g/dLBON [facility] FAIRFIELD HOSPITALV (RBC) [Entitic vol]102.6 wOCsoh85.0 - 100.0 fLWYTHE COUNTY COMMUNITY HOSPITAL Monocytes/100 WBC (Bld)8 %4 - 8 %WYTHE [facility] COMMUNITY HOSPITALMonocytes/100 WBC (Bld) 0.34 %WYTHE COUNTY COMMUNITY HOSPITALNeutrophils/100 WBC (Bld)68 %47 - 75 %WYTHE COUNTY COMMUNITY HOSPITALPlatelet mean volume (Bld) [Entitic vol]9.0 fL6.0 - 12.0 fLWYTHE COUNTY COMMUNITY HOSPITALPlatelets (Bld) [#/Vol]192 10*3/uLBON [facility]BY [facility]ITAL RBC (Bld) [#/Vol]3.78 10*6/uLLow4.00 - 5.20 m/uLWYTHE COUNTY COMMUNITY HOSPITAL Segmented neutrophils/100 WBC (Bld)2.99 %WYTHE COUNTY COMMUNITY HOSPITALWBC other (Bld) [#/Vol]4.4B[facility] HOSPITALCBC with Diffon [id number]. Basophil0.03 k/uLNormal0.00-0.20[facility] HospitalComment on above:Performed By: #### GLYHGB, LIPR, URNMAB ####[facility] [address] [place] [address] Lab Director: Agusto Ferrell MD#### DIME, CDP, CP, ZFAST ####[facility] [address] [place] [address] Lab Director: MDAbs. AdiImm.Granulocyte0.01 k/uL Normal0.00-0.30[facility] HospitalComment on above:Performed By: #### GLYHGB, LIPR, URNMAB ####[facility] [address] [place] [phone] Director: Agusto Ferrell MD#### DAYANA, CDP, CP, ZFAST ####[place] [address] Lab Director: Arian Joshi.Neutrophil (Seg)2.99 k/uLNormal2.5-7.0[facility] HospitalComment on above:Performed By: #### GLYHGB, LIPR, URNMAB ####[place] [address] Lab Director: Agusto Ferrell MD#### DAYANA, DYLAN, CP, ZFAST ####[facility] [address] [place] [address] Lab Director: Yury Caba MD Basophils/100 WBC (Bld)1 %Normal0-2MUniversity Hospitals TriPoint Medical CenterComment on above: Performed By: #### GLYHGB, LIPR, URNMAB ####[facility] [address] [place] [address] Lab Director: Agusto Ferrell MD#### DIME, CDP, CP, ZFAST ####[facility] [address] [place] [id number] Lab Director: Yury Caba MDEosinophils (Bld) [#/Vol]0.03 10*3/uLNormal0.00-0.40[facility] HospitalComment on above:Performed By: #### GLYHGB, LIPR, URNMAB ####[facility] [address] [place] [address] Lab Director: Agusto Ferrell MD#### DIME, CDP, CP, ZFAST ####[facility] [address] [place], [place] [address])[phone] Director: Yury Caba MDEosinophils/100 WBC (Bld)1 %Normal0-5[facility] HospitalComment on above:Performed By: #### GLYHGB, LIPR, URNMAB ####[address] [place] [address] Lab Director: Agusto Ferrell MD#### DIME, CDP, CP, ZFAST ####[facility] [address] [place], [place] [address])[phone] Director: Yury Caba MD Erythrocyte distribution width (RBC) [Ratio]14.6 %Cfhxle32.1-15.2MUniversity Hospitals TriPoint Medical CenterComment on above:Performed By: #### GLYHGB, LIPR, URNMAB ####[facility] [address] [place] [address] Lab Director: Agusto Ferrell MD#### DIME, CDP, CP, ZFAST ####[facility] Iyd[address] [place], [place] [address])[phone] Director: Yury Caba MD Hematocrit (Bld) [Volume fraction]38.8 %Niggkg52.0-46.0[facility] Comment on above:Performed By: #### GLYHGB, LIPR, URNMAB ####[facility] [address] [place] [address] Lab Director: Agusto Ferrell MD#### DIME, CDP, CP, ZFAST ####[facility] Jpy[address]3 [place] [address] Lab Director: Yury Caba MD Hemoglobin (Bld) [Mass/Vol]12.8 g/lLYnrywt81.0-16.0[facility] HospitalComment on above:Performed By: #### GLYHGB, LIPR, URNMAB ####[facility] [address]vgo[address] [place] [address] Lab Director: Agusto Ferrell MD#### DIME, CDP, CP, ZFAST ####[facility] Ryr[address]1 [place] [address] Lab Director: Yury Caba MDImmature granulocytes/100 WBC (Bld)0 %Normal0-5[facility] HospitalComment on above: Performed By: #### GLYHGB, LIPR, URNMAB ####[address] [place] [address] Lab Director: Agusto Ferrell MD#### DIME, CDP, CP, ZFAST ####[facility] Bin[address] [place] [address] Lab Director: Yury Caba MDLymphocytes (Bld) [#/Vol]0.98 10*3/uLLow1.00-4.80[facility] HospitalComment on above:Performed By: #### GLYHGB, LIPR, URNMAB ####[facility] X[address] [place] [address] Lab Director: Agusto Ferrell MD#### DIME, CDP, CP, ZFAST ####[facility] Cfk6930 [place], [place] [phone] Director: Yury Caba MDLymphocytes/100 WBC (Bld)22 %Yrqscn12-26VvysmCleveland Clinic Hillcrest HospitalComment on above:Performed By: #### GLYHGB, LIPR, URNMAB ####[facility] [address]you[address] [place] [address] Lab Director: Agusto Ferrell MD#### DAYANA, DYLAN, CP, ZFAST ####[facility] [address] [place] [address] Lab Director: Yury Caba MD MCH (RBC) [Entitic mass]33.9 xgXssrpt07.0-34.0[facility] HospitalComment on above:Performed By: #### GLYHGB, LIPR, URNMAB ####[address] [place] [address] Lab Director: Agusto Ferrell MD#### DAYANA, DYLAN, CP, ZFAST ####[facility] Nig[address] [place] [address] Lab Director: KATHIE JoshiCHC (RBC) [Mass/Vol]33.0 g/dL Dmjdir38.0-37.0[facility] HospitalComment on above:Performed By: #### GLYHGB, LIPR, URNMAB ####[facility] [address] [place] [phone] Director: Agusto Ferrell MD#### DIMDarlene, DYLAN, CP, ZFAST ####[facility] Pva[address] [place] [address] Lab Director: KATHIE JoshiCV (RBC) [Entitic vol]102.6 aXBrew83.0-100.0[facility] HospitalComment on above:Performed By: #### GLYHGB, LIPR, URNMAB ####[facility] [address] [place] [address] Lab Director: Agusto Ferrell MD#### DIME, CDP, CP, ZFAST ####[facility] Fyq[address]649 [place] [address] Lab Director: Yury Caba MD Monocytes (Bld) [#/Vol]0.34 10*3/uLNormal0.00-1.00[facility] HospitalComment on above:Performed By: #### GLYHGB, LIPR, URNMAB ####[facility] [address] [place] [address] Lab Director: Agusto Ferrell MD#### DIMDarlene, CDP, CP, ZFAST ####[facility] Cte[address] [place] [address] Lab Director: Yury Caba MDMonocytes/100 WBC (Bld)8 %Normal4-8[facility] HospitalComment on above:Performed By: #### GLYHGB, LIPR, URNMAB ####[facility] [address]si[address] [place] [address] Lab Director: Agusto Ferrell MD#### DAYANA, DYLAN, CP, ZFAST ####[facility] Efy[address] [place] [phone] Director: Yury Caba MDNeutrophil (Seg)68 %Mrhdxw28-25YgxckCleveland Clinic Hillcrest HospitalComment on above:Performed By: #### GLYHGB, LIPR, URNMAB ####[facility] Fcbonopmplor25[address] [place] [address] Lab Director: Agusto Ferrell MD#### DAYANA, DYLAN, CP, ZFAST ####[facility] Igs2757 [place] [address] Lab Director: DEZ Joshilatelet mean volume (Bld) [Entitic vol]9.0 fLNormal6.0-12.0[facility] Comment on above:Performed By: #### GLYHGB, LIPR, URNMAB ####[facility] [address] [place] [address] Lab Director: Agusto Ferrell MD#### DIME, CDP, CP, ZFAST ####[facility] Msg2130 [place] [address] Lab Director: Yury Caba MD Platelets (d) [#/Vol]192 10*3/oBFunzqj722-937TdxqlCleveland Clinic Hillcrest HospitalComment on above:Performed By: #### GLYHGB, LIPR, URNMAB ####[facility] [address] [place] [address] Lab Director: Agusto Ferrell MD#### DIME, CDP, CP, ZFAST ####[facility] Ohf[address]64 [place] [address] Lab Director: RHIANNON JoshiBC ([facility]) [#/Vol]3.78 10*6/uLLow 4.00-5.20[facility] HospitalComment on above:Performed By: #### GLYHGB, LIPR, URNMAB ####[facility] [address] [place] [address] Lab Director: Agusto Ferrell MD#### DIMDarlene, CDP, CP, ZFAST ####[facility] Egi[address] [place] [address] Lab Director: Yury Caba MDWBC (d) [#/Vol]4.4 10*3/uLNormal3.5-11.0[facility] Comment on above:Performed By: #### GLYHGB, LIPR, URNMAB ####[facility] Um[address]so[address]xyr[address] [place] [address] Lab Director: Agusto Ferrell MD#### DIME, CDP, CP, ZFAST ####[facility] Dbw[address] [place], [place] [address])[phone] Director: KASH Joshiomp Metabolic Profon 69-31-4975Hoohadm [Mass/Vol]4.3 g/dLNormal3.5-5.2Msumma health akron campusy [facility] Medical CenterComment on above:Performed By: #### GLYHGB, LIPR, URNMAB ####[facility] [address] [place] [address] Lab Director: Agusto Ferrell MD#### DAYANA, DYLAN, CP, ZFAST ####[facility] Ssj[address] [place], [place] [address])[phone] Director: Arcelia Joshi Ukyl964 U/YXmup31-376EpigaCleveland Clinic Hillcrest HospitalComment on above:Performed By: #### GLYHGB, LIPR, URNMAB ####[address] [place] [address] Lab Director: Agusto Ferrell MD#### DAYANA, DYLAN, CP, ZFAST ####[facility] Eqk[address] [place] [phone] Director: Yury Caba MDALT [Catalytic activity/Vol]84 U/LHigh5-33 [facility] HospitalComment on above:Performed By: #### GLYHGB, LIPR, URNMAB ####[address] [place] [address] Lab Director: Agusto Ferrell MD#### DAYANA, DYLAN, CP, ZFAST ####[facility] [address] [place] [address] Lab Director: Yury Caba MD Anion gap [Moles/Vol]13 mmol/LNormal9-17[facility] HospitalComment on above: Performed By: #### GLYHGB, LIPR, URNMAB ####[address] [place] [address] Lab Director: Agusto Ferrell MD#### DYLAN ANNE, CP, ZFAST ####[facility] Ake[address] [place] [address] Lab Director: Yury Caba MDAST [Catalytic activity/Vol]83 U/LHigh<32[facility] HospitalComment on above:Performed By: #### GLYHGB, LIPR, URNMAB ####[facility] [address]quc[address] [place] [phone] Director: Agusto Ferrell MD#### DYLAN ANNE, TAINA, ZFAST ####[facility] Ncs[address]002 [place] [address] Lab Director: Yury Caba MDBilirubin [Mass/Vol]0.4 mg/dLNormal0.3-1.2MUniversity Hospitals TriPoint Medical Center Comment on above:Performed By: #### GLYHGB, LIPR, URNMAB ####[facility] [address]ym[address] [place] [address] Lab Director: Agusto Ferrell MD#### DYLAN ANNE, CP, ZFAST ####[facility] Wcs[address]93 [place] [address] Lab Director: Yury Caba MDBUN/CRE Mmoyq61Nbchvw9-46Utneu Willard HospitalComment on above:Performed By: #### GLYHGB, LIPR, URNMAB ####[facility] [address] [place] [address] Lab Director: Agusto Ferrell MD#### DYLAN ANNE, CP, ZFAST ####[facility] Oco[address]16 [place] [phone] Director: KASH Joshialcium [Mass/Vol]9.3 mg/dLNormal8.6-10.4[facility] HospitalComment on above:Performed By: #### GLYHGB, LIPR, URNMAB ####[facility] Iq[address]xwsoy[address] [place] [address] Lab Director: Agusto Ferrell MD#### DIME, CDP, CP, ZFAST ####[facility] [address] [place] [address] Lab Director: Yury Caba MD Chloride [Moles/Vol]98 mmol/XPxkjes63-439QzsbnCleveland Clinic Hillcrest HospitalComment on above: Performed By: #### GLYHGB, LIPR, URNMAB ####[facility] [address]zb[address] [place] [address] Lab Director: Agusto Ferrell MD#### ADRIELE, CDP, CP, ZFAST ####[facility] Xju[address]34 [place] [address] Lab Director: KASH JoshiO2 [Moles/Vol]26 mmol/LNormal 20-31[facility] HospitalComment on above:Performed By: #### GLYHGB, LIPR, URNMAB ####[facility] [address] [place] [address] Lab Director: Agusto Ferrell MD#### DIME, CDP, CP, ZFAST ####[facility] [address] [place] [address] [phone] Lab Director: KASH Joshireatinine [Mass/Vol]0.6 mg/dLNormal0.5-0.9[facility] Comment on above:Performed By: #### GLYHGB, LIPR, URNMAB ####[facility] [address] [place] [address] Lab Director: Agusto Ferrell MD#### DIME, CDP, CP, ZFAST ####[facility] [address] [place] [phone] Lab Director: Yury Caba MDGFR/1.73 sq M.predicted among non-blacks MDRD (S/P/Bld) [Vol rate/Area]mL/min/{1.73_m2} Normal>60[facility] HospitalComment on above:Result Comment: These results are not intended for [...] or following therapy that affects renal tubular secretion.Performed By: #### GLYHGLima, LIPR, URNMAB ####[address] [address] Lab Director: Agusto Ferrell MD#### DYLAN ANNE CP, ZFAST ####[facility] Alg[address] [place], [place] [address])[phone] Director: Yury Caba MDGlucose [Mass/Vol]91 mg/vYEqifxt49-44WenlsUniversity Hospitals TriPoint Medical CenterComment on above:Performed By: #### GLYHGLima, LIPR, URNMAB ####[address] [address] Lab Director: Agusto Ferrell MD#### DYLAN ANNE, CP, ZFAST ####[facility] [address] [place], [place] 8560290 Lab Director: DEZ Joshiotassium [Moles/Vol]4.3 mmol/L Normal3.7-5.3MUniversity Hospitals TriPoint Medical CenterComment on above:Performed By: #### GLYHGB, LIPR, URNMAB ####[address] [phone] Director: Agusto Ferrell MD#### DYLAN ANNE, CP, ZFAST ####[facility] Bhi[address] [place] [address] Lab Director: DEZ Joshirotein [Mass/Vol]7.2 g/dLNormal6.4-8.3MUniversity Hospitals TriPoint Medical Center Comment on above:Performed By: #### GLYHGB, LIPR, URNMAB ####[facility] [address] [place] [address] Lab Director: Agusto Ferrell MD#### DIMDarlene, DYLAN, CP, ZFAST ####[facility] Aeu[address] [place], [place] 3120890 Lab Director: SANDRA Joshiodium [Moles/Vol]137 mmol/CPclecb700-684ScfflCleveland Clinic Hillcrest HospitalComment on above: Performed By: #### GLYHGB, LIPR, URNMAB ####[address] [place] [address] Lab Director: Agusto Ferrell MD#### DAYANA, DYLAN, CP, ZFAST ####[facility] Rqr3886 [place] [address] Lab Director: Yury Caba MDUrea nitrogen [Mass/Vol]10 mg/dL Normal8-23[facility] HospitalComment on above:Performed By: #### GLYHGB, LIPR, URNMAB ####[facility] [address] [place] [phone] Director: Agusto Ferrell MD#### DYLAN ANNE, CP, ZFAST ####[facility] [address]ib[address] [place] [address] Lab Director: KASH Joshiomprehensive Metabolic Panelon 02-84-0004Umcxqma [Mass/Vol]4.3 g/dL3.5 - 5.2 g/dLBON J.W. RUBY MEMORIAL HOSPITALALP [Catalytic activity/Vol]169 U/L High35 - 104 U/LBON [facility]ERY HEALTHALT [Catalytic activity/Vol]84 U/LHigh5 - 33 U/LBON SEC[facility]ER HOSPITALAnion gap [Moles/Vol]13 mmol/L9 - 17 mmol/LBON [facility] HEALTHAST [Catalytic activity/Vol]83 U/LHighNINF - 32 U/LBON [facility] HEALTHBilirubin [Mass/Vol]0.4 mg/dL0.3 - 1.2 mg/dLBON SECPOIN[facility] HEALTHCalcium [Mass/Vol]9.3 mg/dL8.6 - 10.4 mg/dLBON [facility] HEALTH Chloride [Moles/Vol]98 mmol/L98 - 107 mmol/LBON [facility]PO[facility] HEALTHCO2 [Moles/Vol]26 mmol/L20 - 31 mmol/LBON J.[facility]. RUBY MEMORIAL HOSPITALCreatinine [Mass/Vol] 0.6 mg/dL0.5 - 0.9 mg/dLBON J.W. RU[facility] MEMORIAL HOSPITALGFR/1.73 sq M.predicted MDRD (S/P/Bld) [Vol rate/Area]- PINFBON J.W. RUBY MEMORIAL HOSPITALComment on above: These results are not intended [...] therapy that affects renal tubular secretion. Glucose [Mass/Vol]91 mg/dL70 - 99 mg/dLBON J.W. RU[facility] MEMORIAL HOSPITALInterpretation and review of laboratory resultsAbnormalBON [facility] HEALTHPotassium [Moles/Vol]4.3 mmol/L3.7 - 5.3 mmol/LBON [facility] HEALTHProtein [Mass/Vol] 7.2 g/dL6.4 - 8.3 g/dLBON J.W. RUBY MEMORIAL HOSPITALSodium [Moles/Vol]137 mmol/L135 - 144 mmol/LBON [facility] HEALTHUrea nitrogen [Mass/Vol]10 mg/dL8 - 23 mg/dL W[facility] COMM[facility]ITY HOSPITALUrea nitrogen/Creatinine [Mass ratio]17 mg/mg9 - 20BON [facility]ORIAL HOSPITALBON SECOURS MERCY HEALTHD-Dimer Teston [id number]-Dimer Test0.51 ug/mL FEUNormal0.00-0.59[facility] on above:Result Comment: When combined with a low clinical [...] be more prevalent in patients with distal DVT.Performed By: #### GLYHGB, LIPR, URNMAB ####[employer] [address] [place] [address] Lab Director: Agusto Ferrell MD#### DYLAN ANNE, CP, ZFAST ####[facility] [address] [place] [address] Lab Director: Yury Caba MDD-Dimer, Quantitativeon 64-26-1718Ndgrcz D-dimer FEU (PPP) [Mass/Vol]0.51[facility] on above: When combined with a low [...] more prevalent in patients with distal DVT. [facility] HOSPITALPatient fasting?on 72-97-8583Xvmjcvc fasting?Patient RefusedNormalCleveland Clinic Hillcrest HospitalComment on above:Performed By: #### GLYHGB, LIPR, URNMAB ####[facility] [address] [place] [phone] Director: Agusto Ferrell MD#### DYLAN ANNE, CP, ZFAST ####[facility] Z[address] [place], [place] 8311890 Lab Director: JEANNA Joshi Pelvis and Hip - right 2 Viewson 51-89-1558Cqykpxfou Study observation (narrative)[facility] HOSPITALVL DUP LOWER EXTREMITY VENOUS BILATERALon 12-01-[address] [facility] CONSOLIDATEDEXAM: DUP LOWER EXTREMITY VENOUS BILATERAL REFLUX STUDY. HISTORY: Bilateral leg swelling and pain, 3 months. Fatigue, unspecified type. COMPARISON: None. TECHNIQUE: Compression and augmentation with velocity measurements of the superficial venous system both lower extremities. Evaluation of the deep venous system bilaterally for thrombus. FINDINGS: No reflux. No thrombus from the groin through the calf within the superficial or deep system bilaterally. [facility] Casa Ulloa Jr., MD - 12/01/2022 EXAM: VL DUP [...] superficial or deep system bilaterally. IMPRESSION: Negative. [employer] Phone: radiology Study observation (narrative)[employer] Phone: VL DUP LOWER EXTREMITY VENOUS BILATERALOrdered By: Casa Minor on [id number] [employer] Phone: XR CERVICAL SPINE (4-5 VIEWS)on 10-19-2022 FINDINGS/IMPRESSION: 1. Moderate disc space narrowing and anterior osteophyte formation from C4-C5 inferiorly. 2. Intervertebral foramina show minimal narrowing bilaterally due to facet and uncovertebral osteophytes. 3. No fracture. [facility] RIS CONSOLIDATEDEXAM: XR CERVICAL SPINE (4-5 VIEWS). HISTORY: Left hand weakness. COMPARISON: None. [facility] Casa Ulloa Jr., MD - 10/19/2022 EXAM: XR CERVICAL SPINE (4-5 VIEWS). HISTORY: Left hand weakness. COMPARISON: None. IMPRESSION: FINDINGS/IMPRESSION: 1. Moderate disc space narrowing and anterior osteophyte formation from C4-C5 inferiorly. 2. Intervertebral foramina show minimal narrowing bilaterally due to facet and uncovertebral osteophytes. 3. No fracture. [employer] Phone: radiology Study observation (narrative)[employer] Phone: XR CERVICAL SPINE (4-5 VIEWS)Ordered By: Casa Minor on [id number] [employer] Phone: XR LUMBAR SPINE (MIN 4 VIEWS)on 10-19-2022 FINDINGS/IMPRESSION: 1. Moderate to moderately severe diffuse disc space narrowing and osteophyte formation similar to previous. 2. Mild facet degenerative change L4-L5 and L5-S1. 3. No fracture or pars defects. 4. Slight convex right lumbar curve unchanged. [facility] CONSOLIDATEDEXAM: XR LUMBAR SPINE (MIN 4 VIEWS) HISTORY: Weakness of both legs COMPARISON: CT abdomen and pelvis 02/07/2020. [facility] Casa Ulloa Jr., MD - 10/19/2022 EXAM: XR LUMBAR SPINE (MIN 4 VIEWS) HISTORY: Weakness of both legs COMPARISON: CT abdomen and pelvis 02/07/2020. IMPRESSION: FINDINGS/IMPRESSION: 1. Moderate to moderately severe diffuse disc space narrowing and osteophyte formation similar to previous. 2. Mild facet degenerative change L4-L5 and L5-S1. 3. No fracture or pars defects. 4. Slight convex right lumbar curve unchanged. [facility] [employer] Work Phone: radiology Study observation (narrative)[facility] [employer] Work Phone: XR LUMBAR SPINE (MIN 4 VIEWS)Ordered By: Casa Minor on [id number] [employer] Work Phone: Glucose, Whole Bloodon 51-65-9041Ptgswno [Mass/Vol]127 mg/hGOocr53 - 99 mg/dLBON [facility] INPA SystemsInterpretation and review of laboratory resultsAbnormLewisGale Hospital AlleghanyPOCT glucoseOrdered By: Barrington Prescott on 94-68-2983Pqdcpuvqnugwvj and review of laboratory resultsNormSouthern [facility] Regional Medical Center INPA SystemsQC [place]?yBON [facility] [employer] [facility] INPA SystemsBrain Natriuretic Peptideon 17-47-3485Zuqjucurygo peptide B (Bld) [Mass/Vol]42 pg/mLNINF - 300 pg/mLWY[facility] COMM[facility]ITY [facility]OSPITAL Comment on above: An age-independent cutoff point of 300 pg/ml has a 98% negative predictive value excluding acute heart failure. CBC with Auto Differentialon 76-91-9167Ujlakvix Eos #0.10BON [facility]IAL HOSPITALAbsolute Lymph #1.60[facility] INPA SystemsAbsolute Berkshire #0.40BON [facility]ORIAL HOSPITALBasophils (Bld) [#/Vol]0.00 10*3/uLBON [facility]OR[facility] Basophils/100 WBC (Bld)1 %0 - 2 %[facility] HOSPITALDifferential TypeYESBON J.W. RUBY MEMORIAL HOSPITALEosinophils/100 WBC (Bld)2 %0 - 5 %[facility] Hematocrit (Bld) [Volume fraction]41.4 %36 - 46 %[facility] Hemoglobin (Bld) [Mass/Vol]13.5 g/dL12.0 - 16.0 g/dLBON [facility] Interpretation and review of laboratory resultsAbnormalBON [facility] Lymphocytes/100 WBC (Bld)24 %15 - 40 %[facility]ENTERH (RBC) [Entitic mass]30.8 pg26 - 34 pgBON MERCY HEALTH FAIRFIELD HOSPITALHC (RBC) [Mass/Vol]32.7 g/dL31 - 37 g/dLBON MERCY HEALTH FAIRFIELD HOSPITALV (RBC) [Entitic vol]94.3 fL80 - 100 fLBON J.W. RUBY MEMORIAL HOSPITALMonocytes/100 WBC (Bld)5 %4 - 8 %[facility] Platelet distribution width (Bld) [Ratio]16.4 %High12.1 - 15.2 %W[facility] HOSPITALPlatelets (Bld) [#/Vol]264 10*3/uLBON J.W. RUBY MEMORIAL HOSPITALRBC (Bld) [#/Vol]4.39 10*6/uL4.0 - 5.2 m/uLWYTHE COUNTY COMMUNITY HOSPITALSegmented neutrophils/100 WBC (Bld)68 %47 - 75 %WY[facility] COMMUNITY HOSPITALSegs Absolute4.70 W[facility] COMMUNITY HOSPITALWBC (Bld) [#/Vol]6.9 10*3/uLBON H[facility]IAL HOSPITALCMPon 69-67-5466Fecnsim [Mass/Vol]4.4 g/dL3.5 - 5.2 g/dLBON J.W. RUBY MEMORIAL HOSPITALALP [Catalytic activity/Vol]86 U/L35 - 104 U/LBON [facility]. [facility] MEMORIAL HOSPITALALT [Catalytic activity/Vol]33 U/L5 - 33 U/LBON [facility] Anion gap [Moles/Vol]14 mmol/L9 - 17 mmol/LBON [facility]OURS MERCY HEALTHAST [Catalytic activity/Vol]29 U/LNINF - 32 U/LBON [facility] HEALTHBilirubin [Mass/Vol]0.3 mg/dL0.3 - 1.2 mg/dLBON [facility] MERCY HEALTHCalcium [Mass/Vol]8.8 mg/dL8.6 - 10.4 mg/dLBON [facility] MERCY HEALTHChloride [Moles/Vol]96 mmol/LLow98 - 107 mmol/LBON [facility] MERCY HEALTHCO2 [Moles/Vol]23 mmol/L20 - 31 mmol/LBON [facility] HEALTHCreatinine [Mass/Vol]0.8 mg/dL0.50 - 0.90 mg/dLBON SECOURS CLINTON MEMORIAL HOSPITALY HEALTHGFR/1.73 sq M.predicted MDRD (S/P/Bld) [Vol rate/Area]- PINFBON J.W. RUBY MEMORIAL HOSPITALComment on above: These results are not intended [...] therapy that affects renal tubular secretion. Glucose [Mass/Vol]108 mg/hEPqwe11 - 99 mg/dLBON SECOURS Cytoguide HEALTHPotassium [Moles/Vol]3.9 mmol/L3.7 - 5.3 mmol/LBON SECOURS CLINTON MEMORIAL HOSPITALY HEALTHProtein [Mass/Vol] 7.4 g/dL6.4 - 8.3 g/dLBON SECOURS MERCY HEALTHSodium [Moles/Vol]133 mmol/FXza001 - 144 mmol/LBON [facility]OURS MERCY HEALTHUrea nitrogen [Mass/Vol]11 mg/dL6 - 20 mg/dLBON SECOURS MERCY HEALTHUrea nitrogen/Creatinine (Bld) [Mass ratio]149 - 20 [facility] HOSPITALAlfresco HEALTHEthanolon 76-64-1278Lsogjao [Mass/Vol]230 mg/dLHighNINF - 10 mg/dLBON SECOURS CLINTON MEMORIAL HOSPITALY HEALTHEthanol percent0.23 %[facility] HEALTH No Panel Informationon [id number] J.W. [facility]IAL HOSPITALInterpretation and review of laboratory resultsAbnormalWYTHE COUNTY COMMUNITY HOSPITALTroponinon 93-53-9462Jdrcgjuj I.cardiac DL <= 0.01 ng/mL [Mass/Vol]6 ng/L0 - 14 ng/LBON [facility] MEDICAL CENTERAlfresco [facility] on above:High Sensitivity Troponin values cannot be compared with other Troponin methodologies.XR CHEST PORTABLEon 10-14-2022 1. Mild cardiomegaly. 2. Mild bibasilar atelectasis. [facility] CONSOLIDATEDEXAM: XR CHEST PORTABLE HISTORY: Reason for exam:->sob COMPARISON: Portable chest from 06/18/2018. TECHNIQUE: Portable chest was done at 9:46 PM. FINDINGS: Trachea, mediastinum and diaphragm are unremarkable. Heart size is mildly prominent. Mild bibasilar atelectasis is noted. No effusion or nodule or thorax is noted. Bony elements are intact. [facility] Monroe De La Fuente, DO - 10/14/2022 EXAM: XR CHEST PORTABLE HISTORY: Reason for exam:->sob COMPARISON: Portable chest from 06/18/2018. TECHNIQUE: Portable chest was done at 9:46 PM. FINDINGS: Trachea, mediastinum and diaphragm are unremarkable. Heart size is mildly prominent. Mild bibasilar atelectasis is noted. No effusion or nodule or thorax is noted. Bony elements are intact. IMPRESSION: 1. Mild cardiomegaly. 2. Mild bibasilar atelectasis. [facility] [employer] Work Phone: radiology Study observation (narrative)[facility] Work Phone: XR CHEST PORTABLEOrdered By: Monroe Grant on 10-14-2022 [facility] Work Phone: CKon [id number] [Catalytic activity/Vol]39 U/L26 - 192 U/LBON [facility] CENTERAlfresco [facility] CHAPELtextmetixVitamin D 25 Hydroxyon [id number] D3 [Mass/Vol]19.9 ng/mLLow29.9 - PINF ng/mLBON COPPER QUEEN COMMUNITY HOSPITALMedopad [facility] HOSPITALAlfresco [facility]Comdet[facility] on above: Reference Range: Vitamin D status Range Deficiency <20 ng/mL Mild Deficiency 20-30 ng/mL Sufficiency 30-100 ng/mL Toxicity >100 ng/mL Interpretation and review of laboratory resultsAbnoPrairie Lakes Hospital & Care CenterCHEMISTRYOrdered By: SYSTEM SYSTEM on 35-79-6016Xxytj gap [Moles/Vol]11 mmol/LNormal6 - 16 mEq/LFTMC RemisolCalcium [Mass/Vol]9.2 mg/dLNormal8.9 - 11.1 mg/dLFT RemisolChloride [Moles/Vol]100 mmol/YXae243 - 111 mmol/LFTMC RemisolCO2 [Moles/Vol]28 mmol/DLcejcu61 - 31 mmol/LFTMC Remisol Creatinine [Mass/Vol]0.8 mg/dLNormal0.5 - 1.3 mg/dLFTMC RemisolGFR/1.73 sq M.predicted among blacks MDRD (S/P/Bld) [Vol rate/Area]mL/min/1.73 s1Nnpgod >=59mL/min/1.73 m2FT Chem SGFR/1.73 sq M.predicted among non-blacks MDRD (S/P/Bld) [Vol rate/Area]mL/min/1.73 f3Yyrzkx>=59mL/min/1.73 m2FT Chem S Glucose [Mass/Vol]180 mg/rNRjtkaq44 - 199 mg/dLFTMC RemisolMagnesium [Mass/Vol] 2.4 mg/dLNormal1.3 - 2.4 mg/dLFTMC RemisolPotassium [Moles/Vol]4.2 mmol/LNormal 3.5 - 5.3 mmol/LFTMC RemisolSodium [Moles/Vol]135 mmol/MHgvjlq794 - 145 mmol/L [facility] RemisolUrea nitrogen [Mass/Vol]12 mg/dLNormal5 - 21 mg/dLFTMC RemisolUrea nitrogen/Creatinine [Mass ratio]15 mg/rdGajgmj70 - 20FTMC RemisolCHEMISTRY Ordered By: SYSTEM SYSTEM on 22-49-7753Ywknuokci [Mass/Vol]2.8 mg/dLHigh1.3 - 2.4 mg/dLCORNERSTONE [facility] [place] RemisolGlucose Glucometer (BldC) [Mass/Vol]Ordered By: José Sanchez on 20-09-9565Orszkmb [Mass/Vol]248 mg/dLKettering Health Main Campus Comment on above:Random Glucose Reference Range is dependent on time and content of last meal. Glucose of more than 200 mg/dL in a nonstressed, ambulatory subject supports the diagnosis of Diabetes Mellitus.Glucose Poct Glucometerson 18-51-4626Dwylexj [Mass/Vol]248 mg/dLNoMemorial Health System [facility] Comment on above:Result Comment: Random Glucose Reference Range is dependent on time and content of last meal. Glucose of more than 200 mg/dL in a nonstressed, ambulatory subject supports the diagnosis of Diabetes Mellitus. PERFORMED BY: [facility] [address] [place] [address] PATHOLOGIST [employer]SEM[employer] EZRA MCCLAIN M.D.Performed By: #### GLULS #### Point of Care testing ,Glucose [Mass/Vol]253 mg/dLNoMemorial Health System Marietta Memorial HospitalComment on above:Result Comment: Random Glucose Reference Range is dependent on time and content of last meal. Glucose of more than 200 mg/dL in a nonstressed, ambulatory subject supports the diagnosis of Diabetes Mellitus. PERFORMED BY: [facility] [address] [place] [address] PATHOLOGIST [employer] ASSEM[employer] EZRA MCCLAIN M.D.Performed By: #### GLULS #### Point of Care testing ,Alanine aminotransferase [Enzymatic activity/volume] in Serum or PlasmaOrdered By: Marilyn Sun on 15-18-8280XPF [Catalytic activity/Vol]59 U/L7-52[facility] CampusAlbumin [Mass/volume] in Serum or Plasma by Bromocresol green (BCG) dye binding methoOrdered By: Marilyn Sun on 59-00-7641Ujxajyr BCG dye [Mass/Vol]4.6 g/dL3.5-5.7FThe Surgical Hospital at SouthwoodsAlkaline phosphatase [Enzymatic activity/volume] in Serum or PlasmaOrdered By: Marilyn Mejiaomar on 17-40-4684OOV [Catalytic activity/Vol]103 U/X48-555OclopihkzKettering Health Main CampusAspartate aminotransferase [Enzymatic activity/volume] in Serum or PlasmaOrdered By: Obaydah Daromar on 74-37-1838ZHT [Catalytic activity/Vol]80 U/W79-58KyeieeahlKettering Health Main CampusBasophils Auto (Bld) [#/Vol]Ordered By: Obaydah Daromar on 02-33-3090Pugkngxgz (Bld) [#/Vol]0.0 10*3/uL0.0-0.2FThe Surgical Hospital at SouthwoodsBasophils/100 WBC Auto (Bld)Ordered By: Obaydah Daromar on 16-88-4903Jqnjqinqn/100 WBC (Bld)0.2 %.[facility] Bilirubin.total [Mass/volume] in Serum or PlasmaOrdered By: Obaydah Daromar on 15-21-7203Xmbklwnav [Mass/Vol]0.4 mg/dL0.3-1.0[facility] Calcium [Mass/volume] in Serum or PlasmaOrdered By: Obaydah Daromar on 81-54-8167Gkfmhgd [Mass/Vol]9.1 mg/dL8.6-10.3FThe Surgical Hospital at Southwoods Carbon dioxide, total [Moles/volume] in Serum or PlasmaOrdered By: Obaydah Daromar on 44-72-7086CK1 [Moles/Vol]29.3 mmol/L21.0-31.0[facility] CampusChloride [Moles/volume] in Serum or PlasmaOrdered By: Obaydah Daromar on 39-44-2753Hmevvrjg [Moles/Vol]96 mmol/Y73-083VbuswnjliKettering Health Main CampusComplete Blood Count Auto Diffon 10-90-7538Ldvejjcyg (Bld) [#/Vol] 0.0 10*3/uLNormal0.0-0.2FThe Surgical Hospital at SouthwoodsComment on above:Result Comment: PERFORMED BY: [facility] [place] [address] PATHOLOGIST [employer]SEMBLER EZRA MCCLAIN M.D.Performed By: #### GLULS #### Point of Care testing ,Basophils/100 WBC (Bld)0.2 %Normal.[facility] CampusComment on above:Performed By: #### GLULS #### Point of Care testing ,Eosinophils (Bld) [#/Vol]0.0 10*3/uLNormal0.0-0.45[facility] CampusComment on above:Performed By: #### GLULS #### Point of Care testing ,Eosinophils/100 WBC (Bld)0.0 %Normal.[facility] CampusComment on above:Performed By: #### GLULS #### Point of Care testing ,Erythrocyte distribution width (RBC) [Ratio]18.2 %High11.9-15.3FThe Surgical Hospital at SouthwoodsComment on above:Performed By: #### GLULS #### Point of Care testing ,Hematocrit (Bld) [Volume fraction]38.3 %Tkncrn74.0-46.4FThe Surgical Hospital at SouthwoodsComment on above:Performed By: #### GLULS #### Point of Care testing ,Hemoglobin (Bld) [Mass/Vol]12.7 g/zFOtgapg40.8-15.4FThe Surgical Hospital at SouthwoodsComment on above:Performed By: #### GLULS #### Point of Care testing ,Lymphocytes (Bld) [#/Vol]0.5 10*3/uLLow1.00-4.8[facility] CampusComment on above:Performed By: #### GLULS #### Point of Care testing ,Lymphocytes/100 WBC (Bld)6.4 %Normal.[facility] CampusComment on above:Performed By: #### GLULS #### Point of Care testing ,MCH (RBC) [Entitic mass]31.7 xbZeocps19.7-34.3FThe Surgical Hospital at Southwoods Comment on above:Performed By: #### GLULS #### Point of Care testing ,MCV (RBC) [Entitic vol]95.9 nMNzsywp31-084Bfteoohku Regional Medical Center Comment on above:Performed By: #### GLULS #### Point of Care testing ,Mean Corpuscular HGB Conc33.1 g/hPKuzhsf70.0-35.0[facility] CampusComment on above:Performed By: #### GLULS #### Point of Care testing ,Monocytes (Bld) [#/Vol]0.3 10*3/uLNormal0.0-0.8[facility] CampusComment on above:Performed By: #### GLULS #### Point of Care testing ,Monocytes/100 WBC (Bld)3.8 %Normal.[facility] CampusComment on above:Performed By: #### GLULS #### Point of Care testing ,Neutrophils (Bld) [#/Vol]6.8 10*3/uLNormal1.8-7.7FThe Surgical Hospital at SouthwoodsComment on above:Performed By: #### GLULS #### Point of Care testing ,Neutrophils/100 WBC (Bld)89.6 %Normal.[facility] CampusComment on above:Performed By: #### GLULS #### Point of Care testing ,NRBC%0.0 /100{WBC}Normal0-0.5FThe Surgical Hospital at SouthwoodsComment on above: Performed By: #### GLULS #### Point of Care testing ,Platelet mean volume (Bld) [Entitic vol]7.5 fLNormal6.3-10.7FThe Surgical Hospital at SouthwoodsComment on above:Performed By: #### GLULS #### Point of Care testing ,Platelets (Bld) [#/Vol]201 10*3/dRDuqieg331-619IridobnezKettering Health Main CampusComment on above:Performed By: #### GLULS #### Point of Care testing ,RBC (Bld) [#/Vol]4.00 10*6/uLNormal3.60-5.00[facility] Comment on above:Performed By: #### GLULS #### Point of Care testing ,WBC (Bld) [#/Vol]7.6 10*3/uLNormal3.8-11.6FThe Surgical Hospital at Southwoods Comment on above:Performed By: #### GLULS #### Point of Care testing ,Comprehensive Metabolic Panelon 09-90-8639Beyhlnd [Mass/Vol]4.6 g/dLNormal 3.5-5.7FThe Surgical Hospital at SouthwoodsComment on above:Performed By: #### GLULS #### Point of Care testing ,Albumin/Globulin [Mass ratio]1.7 {ratio}NormalKet[facility] Health [facility] Campus Comment on above:Performed By: #### GLULS #### Point of Care testing ,ALP [Catalytic activity/Vol]103 U/SSxbuvw74-177DgmzmoqpkKettering Health Main CampusComment on above:Performed By: #### GLULS #### Point of Care testing ,ALT [Catalytic activity/Vol]59 U/LHigh7-52[facility] Comment on above:Performed By: #### GLULS #### Point of Care testing ,Anion gap [Moles/Vol]Not performedNormal6.0-15.0[facility] CampusComment on above:Performed By: #### GLULS #### Point of Care testing ,AST [Catalytic activity/Vol]80 U/CDlsi61-27OrwtcxhjcKettering Health Main Campus Comment on above:Performed By: #### GLULS #### Point of Care testing ,Bilirubin [Mass/Vol]0.4 mg/dLNormal0.3-1.0[facility] Comment on above:Performed By: #### GLULS #### Point of Care testing ,Calcium [Mass/Vol]9.1 mg/dLNormal8.6-10.3FThe Surgical Hospital at Southwoods Comment on above:Performed By: #### GLULS #### Point of Care testing ,Chloride [Moles/Vol]96 mmol/UGcy19-411CgmpoekqlKettering Health Main CampusComment on above:Performed By: #### GLULS #### Point of Care testing ,CO2 [Moles/Vol]29.3 mmol/NSnbiff00.0-31.0[facility] Comment on above:Performed By: #### GLULS #### Point of Care testing ,Creatinine [Mass/Vol]0.85 mg/dLNormal0.60-1.20[facility] Comment on above:Performed By: #### GLULS #### Point of Care testing ,Creatinine Clr Calc Aepjjsfc819.67NoMemorial Health System [facility] Comment on above:Result Comment: PERFORMED BY: [facility] [address] [place] [address] PATHOLOGIST [employer]SEM[employer]ER EZRA MCCLAIN M.D.Performed By: #### GLULS #### Point of Care testing ,GFR/1.73 sq M.predicted MDRD (S/P/Bld) [Vol rate/Area]mL/min/{1.73_m2}Normal [facility] CampusComment on above:Performed By: #### GLULS #### Point of Care testing ,Globulin (S) [Mass/Vol]2.7 g/dLAshtabula County Medical CenterComment on above:Performed By: #### GLULS #### Point of Care testing ,Glucose [Mass/Vol]284 mg/kDMovq51-598VamjsyjanKettering Health Main CampusComment on above:Result Comment: Random Glucose Reference Range is dependent on time and content of last meal. Glucose of more than 200 mg/dL in a nonstressed, ambulatory subject supports the diagnosis of Diabetes Mellitus. ADA recommended reference rangePerformed By: #### GLULS #### Point of Care testing ,PotassiumNormal3.5-5.1FThe Surgical Hospital at SouthwoodsComment on above:Result Comment: Specimen hemolyzed, redraw requestedPerformed By: #### GLULS #### Point of Care testing ,Protein [Mass/Vol]7.3 g/dLNoal6.4-8.9[facility] CampusComment on above:Performed By: #### GLULS #### Point of Care testing ,Sodium [Moles/Vol]134 mmol/TGjt834-762IctfuqazfKettering Health Main CampusComment on above:Performed By: #### GLULS #### Point of Care testing ,Urea nitrogen [Mass/Vol]37 mg/dLWeirton Medical Center7-25[facility] Comment on above:Performed By: #### GLULS #### Point of Care testing ,Creatinine [Mass/volume] in Serum or PlasmaOrdered By: Marilyn Sun on 90-81-7053Pnytsrlkue [Mass/Vol]0.85 mg/dL0.60-1.20[facility] CampusEosinophils Auto (Bld) [#/Vol]Ordered By: Obartur Mejiaomar on 09-13-2022 Eosinophils (Bld) [#/Vol]0.0 10*3/uL0.0-0.45[facility] Eosinophils/100 WBC Auto (Bld)Ordered By: Obartur Mejiaomar on 09-13-2022 Eosinophils/100 WBC (Bld)0.0 %.[facility] CampusErythrocyte distribution width Auto (RBC) [Ratio]Ordered By: Marilyn Mejiaomar on 09-13-2022 Erythrocyte distribution width (RBC) [Ratio]18.2 %11.9-15.3FThe Surgical Hospital at SouthwoodsGlobulin Calc (S) [Mass/Vol]Ordered By: Marilyn Sun on 32-78-2542Tuhrdldm (S) [Mass/Vol]2.7 g/dLKettering Health Main Campus Glucose Poct Glucometerson 56-87-9604Afyojcs7Qyp9: Cleaned MeterNoMemorial Health System Marietta Memorial HospitalComment on above:Result Comment: PERFORMED BY: [facility] [address] [place] [address] PATHOLOGIST [employer] ASSEMBLER EZRA MCCLAIN M.D.Performed By: #### GLULS #### Point of Care testing ,Glucose [Mass/Vol]375 mg/dLAshtabula County Medical CenterComment on above:Result Comment: Random Glucose Reference Range is dependent on time and content of last meal. Glucose of more than 200 mg/dL in a nonstressed, ambulatory subject supports the diagnosis of Diabetes Mellitus.Performed By: #### GLULS #### Point of Care testing ,Glucose [Mass/Vol]360 mg/dLAshtabula County Medical CenterComment on above:Result Comment: Random Glucose Reference Range is dependent on time and content of last meal. Glucose of more than 200 mg/dL in a nonstressed, ambulatory subject supports the diagnosis of Diabetes Mellitus. PERFORMED BY: [place] [address] PATHOLOGIST [employer]ANE ASSEMBLER EZRA MCCLAIN M.D.Performed By: #### CMP, CBC #### [place] [address] USAGlucose [Mass/Vol]348 mg/dLAshtabula County Medical CenterComment on above:Result Comment: Random Glucose Reference Range is dependent on time and content of last meal. Glucose of more than 200 mg/dL in a nonstressed, ambulatory subject supports the diagnosis of Diabetes Mellitus. PERFORMED BY: [place] [address] PATHOLOGIST CRANE ASSEMBLER EZRA MCCLAIN M.D.Performed By: #### GLULS #### Point of Care testing ,Qtdepsg7Nrn0: Cleaned MeterAshtabula County Medical CenterComment on above:Result Comment: PERFORMED BY: [place] [address] PATHOLOGIST [employer]ANE ASSEMBLER EZRA MCCLAIN M.D.Performed By: #### GLULS #### Point of Care testing ,Glucose [Mass/Vol]261 mg/dLAshtabula County Medical CenterComment on above:Result Comment: Random Glucose Reference Range is dependent on time and content of last meal. Glucose of more than 200 mg/dL in a nonstressed, ambulatory subject supports the diagnosis of Diabetes Mellitus.Performed By: #### GLULS #### Point of Care testing ,Glucose [Mass/volume] in Serum or PlasmaOrdered By: Marilyn Sun on 61-50-6700Pkafulp [Mass/Vol]284 mg/gM71-832Qwzmtkdbg[address] [place] [address] Comment on above:ADA recommended reference rangeRandom Glucose Reference Range is dependent on time and content of last meal. Glucose of more than 200 mg/dL in a nonstressed, ambulatory subject supports the diagnosisof Diabetes Mellitus. Hematocrit Auto (Bld) [Volume fraction]Ordered By: Marilyn Sun on 09-13-2022 Hematocrit (Bld) [Volume fraction]38.3 %34.0-46.4FThe Surgical Hospital at SouthwoodsHemoglobin [Mass/volume] in BloodOrdered By: Obsruthidacuca Mejiaomar on 09-13-2022 Hemoglobin (Bld) [Mass/Vol]12.7 g/dL11.8-15.4FThe Surgical Hospital at Southwoods Laboratory - Chemistry and Chemistry - challengeOrdered By: Marilyn Mejiaomar on 89-43-9203YLC/1.73 sq M.predicted MDRD (S/P/Bld) [Vol rate/Area]mL/min/{1.73_m2} [facility] CampusLeukocytes [#/volume] corrected for nucleated erythrocytes in Blood by Automated counOrdered By: Marilyn Mejiaomar on 09-13-2022 WBC corrected for nucl RBC Auto (Bld) [#/Vol]7.6 10*3/uL3.8-11.6FThe Surgical Hospital at SouthwoodsLymphocytes Auto (Bld) [#/Vol]Ordered By: Obartur Mejiaomar on 40-64-5779Vcpqvkhnzkh (Bld) [#/Vol]0.5 10*3/uL1.00-4.8[facility] CampusLymphocytes/100 WBC Auto (Bld)Ordered By: Obsruthidacuca Mejiaomar on 57-76-6888Yztqgpgvfmx/100 WBC (Bld)6.4 %.[facility] CampusMC Auto (RBC) [Entitic mass]Ordered By: Marilyn Mejiaomar on 74-37-2077CND (RBC) [Entitic mass]31.7 pg24.7-34.3FThe Surgical Hospital at SouthwoodsMCHC Auto (RBC) [Mass/Vol]Ordered By: Obsruthidacuca Mejiaomar on 10-42-4946PBSZ (RBC) [Mass/Vol]33.1 g/dL32.0-35.0[facility] CampusMCV Auto (RBC) [Entitic vol] Ordered By: Obartur Mejiaomar on 28-74-4924HEJ (RBC) [Entitic vol]95.9 bX10-024 [facility] CampusMonocytes Auto (Bld) [#/Vol]Ordered By: Obsruthidacuca Mejiaomar on 91-97-8305Csbkimzas (Bld) [#/Vol]0.3 10*3/uL0.0-0.8[facility] CampusMonocytes/100 WBC Auto (Bld)Ordered By: Obaydah Daromar on 68-37-8696Xkftqzohv/100 WBC (Bld)3.8 %.[facility] Neutrophils Auto (Bld) [#/Vol]Ordered By: Obsruthidah Daromar on 09-13-2022 Neutrophils (Bld) [#/Vol]6.8 10*3/uL1.8-7.7FThe Surgical Hospital at Southwoods Neutrophils/100 WBC Auto (Bld)Ordered By: Obsruthidah Daromar on 09-13-2022 Neutrophils/100 WBC (Bld)89.6 %.[facility] CampusNo Panel InformationOrdered By: José Sanchez on 12-81-1943Qetmvbi Glucose CommentGlu2: cleaned meterKettering Health Main CampusNo Panel InformationOrdered By: Obartur Mejiaomar on 52-15-9409Ugnlnqqj Creatinine Clearance (Ewot745.67[facility] CampusNucleated erythrocytes [Presence] in Blood by Automated countOrdered By: Obsruthidacuca Mejiaomar on 85-37-4626Sejobhwyn RBC Auto Ql (Bld)0.0 /100{WBC}0-0.5FThe Surgical Hospital at SouthwoodsPlatelet mean volume Auto (Bld) [Entitic vol]Ordered By: Obsruthidah Daromar on 97-62-1681Zaqcplqs mean volume (Bld) [Entitic vol]7.5 fL6.3-10.7FThe Surgical Hospital at SouthwoodsPlatelets Auto (Bld) [#/Vol]Ordered By: Obsruthidah Daromar on 79-54-9583Mkgfremhr (Bld) [#/Vol]201 10*3/lP778-503NmdgkjkqiKettering Health Main CampusPotassium [Moles/volume] in Serum or PlasmaOrdered By: Obsruthidah Robertoomar on 63-71-4084Npdzubosl [Moles/Vol]4.5 mmol/L3.5-5.1FThe Surgical Hospital at SouthwoodsProtein [Mass/volume] in Serum or PlasmaOrdered By: Marilyn Mejiaomar on 64-22-4240Rpmmfed [Mass/Vol]7.3 g/dL6.4-8.9 [facility] CampusRBC Auto (Bld) [#/Vol]Ordered By: Obartur Mejiaomar on 54-83-8689DZK (Bld) [#/Vol]4.00 10*6/uL3.60-5.00[facility] CampusRedraw Potassiumon 62-05-8185Zfqcvwjoq [Moles/Vol]4.5 mmol/LNormal 3.5-5.1FThe Surgical Hospital at SouthwoodsComment on above:Order Comment: FIRST SPECMEN HEMOLYZEDResult Comment: PERFORMED BY: [facility] [address] [place] [address] PATHOLOGIST [employer]ANE ASSEMBLER EZRA MCCLAIN M.D.Performed By: #### GLULS #### Point of Care testing ,Serum or plasma albumin/globulin mass ratioOrdered By: Marilyn Riosr on 78-14-8805Khvibet/Globulin [Mass ratio]1.7 {ratio}[facility] Healtherum or plasma anion gap determinationOrdered By: Marilyn Riosr on 47-57-2838Eblfk gap [Moles/Vol]TNPKettering Health Main CampusComment on above:Test not performedSodium [Moles/volume] in Serum or PlasmaOrdered By: Marilyn Mejiaomar on 28-93-8302Vqzeva [Moles/Vol]134 mmol/J831-047LyxrxonccKettering Health Main CampusUrea nitrogen [Mass/volume] in Serum or PlasmaOrdered By: Obartur Mejiaomar on 01-77-2147Jagi nitrogen [Mass/Vol]37 mg/dL7-25[facility] CampusWBC Auto (Bld) [#/Vol]Ordered By: Obartur Mejiaomar on 36-87-7394JWD (Bld) [#/Vol]7.6 10*3/uL3.8-11.6FThe Surgical Hospital at Southwoods Complete Blood Count Auto Diffon 05-92-4700Awovnhdme (Bld) [#/Vol]0.0 10*3/uL Normal0.0-0.2FThe Surgical Hospital at SouthwoodsComment on above:Result Comment: PERFORMED BY: [place] [address] PATHOLOGIST CRANE ASSEMBLER EZRA MCCLAIN M.D.Performed By: #### HS TROP #### [place] [address] USABasophils/100 WBC (Bld)0.2 %Normal.[facility] CampusComment on above:Performed By: #### HS TROP #### [place] [address] USAEosinophils (Bld) [#/Vol]0.0 10*3/uLNormal0.0-0.45 [facility] CampusComment on above:Performed By: #### HS TROP #### [place] [address] USAEosinophils/100 WBC (Bld)0.0 %Normal.[facility] CampusComment on above:Performed By: #### HS TROP #### [place] [address] USAErythrocyte distribution width (RBC) [Ratio]17.5 %High 11.9-15.3FThe Surgical Hospital at SouthwoodsComment on above:Performed By: #### HS TROP #### [place] [address] USAHematocrit (Bld) [Volume fraction]36.3 %Tztnug32.0-46.4 [facility] CampusComment on above:Performed By: #### HS TROP #### [place] [address] USAHemoglobin (Bld) [Mass/Vol]12.0 g/jZHznmpc27.8-15.4 [facility] CampusComment on above:Performed By: #### HS TROP #### [place] [address] USALymphocytes (Bld) [#/Vol]0.3 10*3/uLLow1.00-4.8[facility] CampusComment on above:Performed By: #### HS TROP #### [facility] [address] [place] [address] USALymphocytes/100 WBC (Bld)4.1 %Normal.[facility] CampusComment on above:Performed By: #### HS TROP #### [facility] [address] [place] [address] USAH (RBC) [Entitic mass]31.7 dnDlnktc86.7-34.3FThe Surgical Hospital at SouthwoodsComment on above:Performed By: #### HS TROP #### [facility] [address] [place] [address] USAMCV (RBC) [Entitic vol]95.9 dNScmeqp29-994GcgwunlucKettering Health Main CampusComment on above:Performed By: #### HS TROP #### [facility] [address] [place] [address] USAMean Corpuscular HGB Conc33.1 g/yCOouxbk08.0-35.0[facility] CampusComment on above:Performed By: #### HS TROP #### [facility] [address] [place] [address] USAMonocytes (Bld) [#/Vol]0.3 10*3/uLNormal0.0-0.8[facility] CampusComment on above:Performed By: #### HS TROP #### [facility] [address] [place] [address] USAMonocytes/100 WBC (Bld)3.8 %Normal.[facility] CampusComment on above:Performed By: #### HS TROP #### [facility] [address] [place] [address] USANeutrophils (Bld) [#/Vol]6.3 10*3/uLNormal1.8-7.7FThe Surgical Hospital at SouthwoodsComment on above:Performed By: #### HS TROP #### [facility] [address] [place] [address] USANeutrophils/100 WBC (Bld)91.9 %Normal.[facility] CampusComment on above:Performed By: #### HS TROP #### [facility] [address] [place] [address] USANRBC%0.0 /100{WBC}Normal0-0.5FThe Surgical Hospital at SouthwoodsComment on above:Performed By: #### HS TROP #### [place] [address] USAPlatelet mean volume (Bld) [Entitic vol]7.5 fLNormal 6.3-10.7FThe Surgical Hospital at SouthwoodsComment on above:Performed By: #### HS TROP #### [place] [address] USAPlatelets (Bld) [#/Vol]177 10*3/mERsxdld097-115AqftfdkrzKettering Health Main CampusComment on above:Performed By: #### HS TROP #### [place] [address] USARBC (Bld) [#/Vol]3.79 10*6/uLNormal3.60-5.00[facility] CampusComment on above:Performed By: #### HS TROP #### [place] [address] USAWBC (Bld) [#/Vol]6.8 10*3/uLNormal3.8-11.6FThe Surgical Hospital at SouthwoodsComment on above:Performed By: #### HS TROP #### [place] [address] USAComprehensive Metabolic Panelon 60-45-6858Asomewu [Mass/Vol]4.1 g/dLNormal3.5-5.7FThe Surgical Hospital at SouthwoodsComment on above:Performed By: #### HS TROP #### [place] [address] USAAlbumin/Globulin [Mass ratio]1.6 {ratio}NormalKettering Health Main CampusComment on above:Performed By: #### HS TROP #### [facility] [address] [place] [address] USAALP [Catalytic activity/Vol]101 U/DXepqiz38-998NctzkydteKettering Health Main CampusComment on above:Performed By: #### HS TROP #### [facility] [address] [place] [address] USAALT [Catalytic activity/Vol]45 U/LNormal7-52[facility] CampusComment on above:Performed By: #### HS TROP #### [facility] [address] [place] [address] USAAnion gap [Moles/Vol]12.8 mmol/LNormal6.0-15.0[facility] CampusComment on above:Performed By: #### HS TROP #### [facility] [address] [place] [address] USAAST [Catalytic activity/Vol]55 U/KVzpz18-59FwfncuicvKettering Health Main CampusComment on above:Performed By: #### HS TROP #### [facility] [address] [place] [address] USABilirubin [Mass/Vol]0.4 mg/dLNormal0.3-1.0[facility] CampusComment on above:Performed By: #### HS TROP #### [facility] [address] [place] [address] USACalcium [Mass/Vol]8.8 mg/dLNormal8.6-10.3FThe Surgical Hospital at SouthwoodsComment on above:Performed By: #### HS TROP #### [facility] [address] [place] [address] USAChloride [Moles/Vol]96 mmol/NVfk54-182TcbgepgqrKettering Health Main CampusComment on above:Performed By: #### HS TROP #### [facility] [address] [place] [address]22 USACO2 [Moles/Vol]28.8 mmol/XAofmjx18.0-31.0[facility] Main CampusComment on above:Performed By: #### HS TROP #### [facility] [address] [place] [address] USACreatinine [Mass/Vol]0.90 mg/dLNormal0.60-1.20K[facility]tering Health Main CampusComment on above:Performed By: #### HS TROP #### [facility] [address] [place] [address] USACreatinine Clr Calc Lxvabkyg131.98NoMemorial Health System Marietta Memorial HospitalComment on above:Result Comment: PERFORMED BY: [place] [address] PATHOLOGIST CRANE ASSEMBLER EZRA MCCLAIN M.D.Performed By: #### HS TROP #### [place] [address] USAGFR/1.73 sq M.predicted MDRD (S/P/Bld) [Vol rate/Area] mL/min/{1.73_m2}NormalKettering Health Main CampusComment on above: Performed By: #### HS TROP #### [place] [address] USAGlobulin (S) [Mass/Vol]2.5 g/dLNoMemorial Health System Marietta Memorial HospitalComment on above:Performed By: #### HS TROP #### [place] [address] USAGlucose [Mass/Vol]289 mg/aWLfhp37-605KbrgnusxvKettering Health Main CampusComment on above:Result Comment: Random Glucose Reference Range is dependent on time and content of last meal. Glucose of more than 200 mg/dL in a nonstressed, ambulatory subject supports the diagnosis of Diabetes Mellitus. ADA recommended reference rangePerformed By: #### HS TROP #### [place] [address] USAPotassium [Moles/Vol]4.6 mmol/LNormal3.5-5.1FThe Surgical Hospital at SouthwoodsComment on above:Performed By: #### HS TROP #### [place] [address] USAProtein [Mass/Vol]6.6 g/dLNormal6.4-8.9[facility] Main CampusComment on above:Performed By: #### HS TROP #### [facility] [address] [place] [address] USASodium [Moles/Vol]133 mmol/JZon590-009PvwaixdvkKettering Health Main CampusComment on above:Performed By: #### HS TROP #### [facility] [address] [place] [address] USAUrea nitrogen [Mass/Vol]29 mg/dLHigh7-25K[facility] Main CampusComment on above:Performed By: #### HS TROP #### [facility] [address] [place] [address] USAGlucose Poct Glucometerson 75-99-4644Rxnvzvm2Qdg3: Cleaned MeterAshtabula County Medical CenterComment on above:Result Comment: PERFORMED BY: [place] [address] PATHOLOGIST CRANE ASSEMBLER EZRA MCCLAIN M.D.Performed By: #### CMP, CBC #### [place] [address] USAGlucose [Mass/Vol]203 mg/dLAshtabula County Medical CenterComment on above:Result Comment: Random Glucose Reference Range is dependent on time and content of last meal. Glucose of more than 200 mg/dL in a nonstressed, ambulatory subject supports the diagnosis of Diabetes Mellitus.Performed By: #### CMP, CBC #### [place] [address] FFRWzibzny7Bsx5: Cleaned MeterAshtabula County Medical CenterComment on above:Result Comment: PERFORMED BY: [place] [address] PATHOLOGIST CRANE ASSEMBLER EZRA MCCLAIN M.D.Performed By: #### GLULS #### Point of Care testing ,Glucose [Mass/Vol]331 mg/dLAshtabula County Medical CenterComment on above:Result Comment: Random Glucose Reference Range is dependent on time and content of last meal. Glucose of more than 200 mg/dL in a nonstressed, ambulatory subject supports the diagnosis of Diabetes Mellitus.Performed By: #### GLULS #### Point of Care testing ,Bkmzhfn2Ycd8: Cleaned [facility]ultman HospitalComment on above:Result Comment: PERFORMED BY: [place] [address] PATHOLOGIST CRANE ASSEMBLER EZRA MCCLAIN M.D.Performed By: #### CMP, CBC #### [place] [address] USAGlucose [Mass/Vol]282 mg/dLAshtabula County Medical CenterComment on above:Result Comment: Random Glucose Reference Range is dependent on time and content of last meal. Glucose of more than 200 mg/dL in a nonstressed, ambulatory subject supports the diagnosis of Diabetes Mellitus.Performed By: #### CMP, CBC #### [place] [address] TAOLqmjvhp9Nsd9: Cleaned [facility]ultman HospitalComment on above:Result Comment: PERFORMED BY: [place] [address] PATHOLOGIST CRANE ASSEMBLER EZRA MCCLAIN M.D.Performed By: #### CMP, CBC #### [place] [address] USAGlucose [Mass/Vol]219 mg/dLAshtabula County Medical CenterComment on above:Result Comment: Random Glucose Reference Range is dependent on time and content of last meal. Glucose of more than 200 mg/dL in a nonstressed, ambulatory subject supports the diagnosis of Diabetes Mellitus.Performed By: #### CMP, CBC #### [place] [address] USAComplete Blood Count Auto Diffon 89-36-0127Wfcpwjxal (Bld) [#/Vol]0.1 10*3/uLNormal0.0-0.2FThe Surgical Hospital at SouthwoodsComment on above:Result Comment: PERFORMED BY: [place] [address] PATHOLOGIST CRANE ASSEMBLER EZRA MCCLAIN M.D.Performed By: #### CMP, CBC #### [facility] [address] [place] [id number] USABasophils/100 WBC (Bld)1.1 %Normal.[facility] Main CampusComment on above:Performed By: #### CMP, CBC #### [facility] [address] [place] [address] USAEosinophils (Bld) [#/Vol]0.0 10*3/uLNormal0.0-0.45 [facility] CampusComment on above:Performed By: #### CMP, CBC #### [facility] [address] [place] [address] USAEosinophils/100 WBC (Bld)0.0 %Normal.[facility] CampusComment on above:Performed By: #### CMP, CBC #### [place] [address] USAErythrocyte distribution width (RBC) [Ratio]17.5 %High 11.9-15.3FThe Surgical Hospital at SouthwoodsComment on above:Performed By: #### CMP, CBC #### [place] [address] USAHematocrit (Bld) [Volume fraction]38.9 %Blsffm99.0-46.4 [facility] CampusComment on above:Performed By: #### CMP, CBC #### [place] [address] USAHemoglobin (Bld) [Mass/Vol]12.7 g/mHMjaiff49.8-15.4 [facility] CampusComdetroit receiving hospital on above:Performed By: #### CMP, CBC #### [facility] [address] [place] [address] USALymphocytes (Bld) [#/Vol]0.3 10*3/uLLow1.00-4.8[facility] CampusComdetroit receiving hospital on above:Performed By: #### CMP, CBC #### [place] [phone] USALymphocytes/100 WBC (Bld)4.7 %Normal.[facility] Main CampusComment on above:Performed By: #### CMP, CBC #### [facility] [address] [place] [address] USAH (RBC) [Entitic mass]31.7 ugIfquwc06.7-34.3FThe Surgical Hospital at SouthwoodsComment on above:Performed By: #### CMP, CBC #### [place] [address] USAMCV (RBC) [Entitic vol]96.7 pBQstdds44-129UqxuufxoxKettering Health Main CampusComment on above:Performed By: #### CMP, CBC #### [place] [address] USAMean Corpuscular HGB Conc32.8 g/bOPsiafx02.0-35.0[facility] CampusComment on above:Performed By: #### CMP, CBC #### [place] [address] USAMonocytes (Bld) [#/Vol]0.1 10*3/uLNormal0.0-0.8[facility] CampusComment on above:Performed By: #### CMP, CBC #### [place] [address] USAMonocytes/100 WBC (Bld)0.9 %Normal.[facility] CampusComment on above:Performed By: #### CMP, CBC #### [place] [address] USANeutrophils (Bld) [#/Vol]6.0 10*3/uLNormal1.8-7.7FThe Surgical Hospital at SouthwoodsComment on above:Performed By: #### CMP, CBC #### [place] [address] USANeutrophils/100 WBC (Bld)93.3 %Normal.[facility] CampusComment on above:Performed By: #### CMP, CBC #### [place] [address] USANRBC%0.2 /100{WBC}Normal0-0.5FThe Surgical Hospital at SouthwoodsComment on above:Performed By: #### CMP, CBC #### [facility] [address] [place] [address] USAPlatelet mean volume (Bld) [Entitic vol]7.5 fLNormal 6.3-10.7FThe Surgical Hospital at SouthwoodsComment on above:Performed By: #### CMP, CBC #### [facility] [address] [place] [address] USAPlatelets (Bld) [#/Vol]185 10*3/wXCouemv347-492VtpgwflrbKettering Health Main CampusComment on above:Performed By: #### CMP, CBC #### [place] [address] USARBC (Bld) [#/Vol]4.02 10*6/uLNormal3.60-5.00K[facility] CampusComment on above:Performed By: #### CMP, CBC #### [place] [address] USAWBC (Bld) [#/Vol]6.4 10*3/uLNormal3.8-11.6FThe Surgical Hospital at SouthwoodsComment on above:Performed By: #### CMP, CBC #### [place] [address] USAComprehensive Metabolic Panelon 68-49-7771Qnpnklv [Mass/Vol]4.5 g/dLNormal3.5-5.7FThe Surgical Hospital at SouthwoodsComment on above:Performed By: #### CMP, CBC #### [facility] [address] [place] [address] USAAlbumin/Globulin [Mass ratio]1.5 {ratio}NormalKettering Health Main CampusComment on above:Performed By: #### CMP, CBC #### [facility] [address] [place] [address] USAALP [Catalytic activity/Vol]130 U/EVwpy97-396FzsfxwchzKettering Health Main CampusComment on above:Performed By: #### CMP, CBC #### [facility] [address] [place] [address] USAALT [Catalytic activity/Vol]59 U/LHigh7-52[facility] CampusComment on above:Performed By: #### CMP, CBC #### [facility] [address] [place] [address] USAAnion gap [Moles/Vol]Not performedNormal6.0-15.0[facility] CampusComment on above:Performed By: #### CMP, CBC #### [facility] [address] [place] [address] USAAST [Catalytic activity/Vol]90 U/IQldl60-60GcmnkypfrKettering Health Main CampusComment on above:Performed By: #### CMP, CBC #### [facility] [address] [place] [address] USABilirubin [Mass/Vol]0.5 mg/dLNormal0.3-1.0[facility] CampusComment on above:Performed By: #### CMP, CBC #### [facility] [address] [place] [address] USACalcium [Mass/Vol]9.3 mg/dLNormal8.6-10.3FThe Surgical Hospital at SouthwoodsComment on above:Performed By: #### CMP, CBC #### [facility] [address] [place] [address] USAChloride [Moles/Vol]94 mmol/POrr46-628TnjsdmkfyKettering Health Main CampusComment on above:Performed By: #### CMP, CBC #### [facility] [address] [place] [address] USACO2 [Moles/Vol]28.7 mmol/RPcjfln89.0-31.0[facility] CampusComment on above:Performed By: #### CMP, CBC #### [facility] [address] [place] [address] USACreatinine [Mass/Vol]0.87 mg/dLNormal0.60-1.20[facility] CampusComment on above:Performed By: #### CMP, CBC #### [facility] [address] [place] [address] USACreatinine Clr Calc Tuojillv702.46NoMemorial Health System Marietta Memorial HospitalComment on above:Result Comment: PERFORMED BY: [place] [address] PATHOLOGIST CRANE ASSEMBLER EZRA MCCLAIN M.D.Performed By: #### CMP, CBC #### [place] [address] USAGFR/1.73 sq M.predicted MDRD (S/P/Bld) [Vol rate/Area] mL/min/{1.73_m2}NormalKettering Health Main CampusComment on above: Performed By: #### CMP, CBC #### [place] [address] USAGlobulin (S) [Mass/Vol]3.0 g/dLNoMemorial Health System Marietta Memorial HospitalComment on above:Performed By: #### CMP, CBC #### [place] [address] USAGlucose [Mass/Vol]222 mg/dLSignificant change ol07-131 [facility] CampusComment on above:Result Comment: Random Glucose Reference Range is dependent on time and content of last meal. Glucose of more than 200 mg/dL in a nonstressed, ambulatory subject supports the diagnosis of Diabetes Mellitus. ADA recommended reference rangePerformed By: #### CMP, CBC #### [place] [address] USAPotassiumNormal3.5-5.1FThe Surgical Hospital at Southwoods Comment on above:Result Comment: Specimen hemolyzed, redraw requestedPerformed By: #### CMP, CBC #### [place] [address] USAProtein [Mass/Vol]7.5 g/dLNormal6.4-8.9[facility] CampusComment on above:Performed By: #### CMP, CBC #### [place] [address] USASodium [Moles/Vol]135 mmol/EGmv714-023OsbhuchqnKettering Health Main CampusComment on above:Performed By: #### CMP, CBC #### [facility] [address] [place] [address] USAUrea nitrogen [Mass/Vol]28 mg/dLWeirton Medical Center7-25K[facility] Main CampusComment on above:Performed By: #### CMP, CBC #### [facility] [address] [place] [id number] USAECH echo transthoracicon 06-65-4402TVB echo transthoracic [facility] [place] [address] [place] [address] Echocardiogram Signed Patient: Carmen Bledsoe MR#: [id number] 9 : 1960 Acct:[id number] Age/Sex: 61 / F ADM Date: 09/10/22 Loc: Room: [address] [place] [address] Type: ADM IN Attending Dr: Marilyn Sun [...] 0727 Signed By: Maikol Siddiqui MD 09/11/22 115[address]Ashtabula County Medical CenterGlucose Poct Glucometerson 62-74-9568Mebdaqe3Lek0: Cleaned MeterNormal [facility] CampusComment on above:Result Comment: PERFORMED BY: [place] [address] PATHOLOGIST CRANE ASSEMBLER EZRA MCCLAIN M.D.Performed By: #### CMP, CBC #### [place] [address] USAGlucose [Mass/Vol]236 mg/dLAshtabula County Medical CenterComment on above:Result Comment: Random Glucose Reference Range is dependent on time and content of last meal. Glucose of more than 200 mg/dL in a nonstressed, ambulatory subject supports the diagnosis of Diabetes Mellitus.Performed By: #### CMP, CBC #### [facility] [address] [place] [address] USAGlucose [Mass/Vol]289 mg/dLAshtabula County Medical CenterComment on above:Result Comment: Random Glucose Reference Range is dependent on time and content of last meal. Glucose of more than 200 mg/dL in a nonstressed, ambulatory subject supports the diagnosis of Diabetes Mellitus. PERFORMED BY: [place] [address] PATHOLOGIST CRANE ASSEMBLER EZRA MCCLAIN M.D.Performed By: #### HS TROP #### [facility] [address] [place] [address] USAGlucose [Mass/Vol]297 mg/dLAshtabula County Medical CenterComment on above:Result Comment: Random Glucose Reference Range is dependent on time and content of last meal. Glucose of more than 200 mg/dL in a nonstressed, ambulatory subject supports the diagnosis of Diabetes Mellitus. PERFORMED BY: [place] [address] PATHOLOGIST CRANE ASSEMBLER EZRA MCCLAIN M.D.Performed By: #### CMP, CBC #### [facility] [address] [place] [address] USAGlucose [Mass/Vol]226 mg/dLNoMemorial Health System Marietta Memorial HospitalComment on above:Result Comment: Random Glucose Reference Range is dependent on time and content of last meal. Glucose of more than 200 mg/dL in a nonstressed, ambulatory subject supports the diagnosis of Diabetes Mellitus. PERFORMED BY: [place] [address] PATHOLOGIST CRANE ASSEMBLER EZRA MCCLAIN M.D.Performed By: #### GLULS #### Point of Care testing ,Redraw Potassiumon 29-15-7847Mbmwvzhex [Moles/Vol]4.5 mmol/LNormal3.5-5.1 [facility] CampusComment on above:Result Comment: PERFORMED BY: [place] [address] PATHOLOGIST CRANE ASSEMBLER EZRA MCCLAIN M.D.Performed By: #### HS TROP #### [facility] [address] [place] [address] USATroponin I High Sensitivityon 13-19-9722Ienajdrz I High Sensitivity5.3 pg/mLNormal0.0-15.0[facility] CampusComment on above:Result Comment: PERFORMED BY: [place] [address] PATHOLOGIST CRANE ASSEMBLER EZRA MCCLAIN M.D.Performed By: #### CMP, CBC #### [facility] [address] [place] [address] USAA1C with Estimated Average Gluon 40-20-9018Dkiqljx [Mass/Vol]128 mg/dLNoMemorial Health System Marietta Memorial HospitalComment on above:Order Comment: Comment add onResult Comment: PERFORMED BY: [place] [address] PATHOLOGIST CRANE ASSEMBLER EZRA MCCLAIN M.D.Performed By: #### CMP, CBC #### [facility] [address] [place] [address] CTYUoS5k (Bld) [Mass fraction]6.1 %High4.3-5.6FThe Surgical Hospital at SouthwoodsComment on above:Order Comment: Comment add onResult Comment: Increased risk for diabetes: 5.7 - 6.4 diabetes: >6.4 glycemic control for adults with diabetes: <7.0Performed By: #### CMP, CBC #### [facility] [address] [place] [address] USAActivated partial thromboplastin time (aPTT) in platelet poor plasma by coagulation aOrdered By: Joo Ramos on 41-78-5568aOCF Coag (PPP) [Time]31.2 s25.1-36.5FThe Surgical Hospital at SouthwoodsAlanine aminotransferase [Enzymatic activity/volume] in Serum or PlasmaOrdered By: Joo Ramos on 38-26-1733YDY [Catalytic activity/Vol]50 U/L7-52[facility] Main CampusAlbumin [Mass/volume] in Serum or Plasma by Bromocresol green (BCG) dye binding methoOrdered By: Joo Ramos on 49-66-9117Qaohihu BCG dye [Mass/Vol]4.4 g/dL3.5-5.7FThe Surgical Hospital at SouthwoodsAlkaline phosphatase [Enzymatic activity/volume] in Serum or PlasmaOrdered By: Joo Ramos on 55-55-8722KRQ [Catalytic activity/Vol]121 U/J09-436OegfcyzagKettering Health Main CampusAspartate aminotransferase [Enzymatic activity/volume] in Serum or PlasmaOrdered By: Joo Ramos on 65-60-8262KXJ [Catalytic activity/Vol]71 U/O85-22LnktlzbdhKettering Health Main CampusB-Type Natriuretic Peptideon 73-54-0914Mgucfuyaxbq peptide B (Bld) [Mass/Vol]6.0 pg/mLNormal5-100[facility] CampusComment on above: Result Comment: PERFORMED BY: [facility] [address] [place] [address] PATHOLOGIST CRANE ASSEMBLER JIANLAN SUN M.D.Performed By: #### CMP, CBC #### [facility] [address] [place] [address] USABasic Metabolic Panelon 23-90-3066Qgggi gap [Moles/Vol] 13.7 mmol/LNormal6.0-15.0[facility] CampusComment on above: Performed By: #### CMP, CBC #### [facility] [address] [place] [address] USACalcium [Mass/Vol]9.6 mg/dLNormal8.6-10.3FThe Surgical Hospital at SouthwoodsComment on above:Performed By: #### CMP, CBC #### [facility] [address] [place] [address] USAChloride [Moles/Vol]99 mmol/HWptwsr48-248QvbpvjenvKettering Health Main CampusComment on above:Performed By: #### CMP, CBC #### [facility] [address] [place] [address] USACO2 [Moles/Vol]29.0 mmol/RAyjovz11.0-31.0[facility] CampusComment on above:Performed By: #### CMP, CBC #### [place] [address] USACreatinine [Mass/Vol]0.83 mg/dLNormal0.60-1.20[facility] CampusComment on above:Performed By: #### CMP, CBC #### [facility] [address] [place] [address] USACreatinine Clr Calc Jcmspeau180.50NormCleveland Clinic Mercy HospitalComment on above:Result Comment: PERFORMED BY: [place] [address] PATHOLOGIST CRANE ASSEMBLER EZRA MCCLAIN M.D.Performed By: #### CMP, CBC #### [place] [address] USAGFR/1.73 sq M.predicted MDRD (S/P/Bld) [Vol rate/Area] mL/min/{1.73_m2}NormalFirelands Regional Medical CenterComment on above: Performed By: #### CMP, CBC #### [facility] [address] [place] [id number] USAGlucose [Mass/Vol]91 mg/wRIvzfko11-259LufhvxmxvKettering Health Main CampusComment on above:Result Comment: Random Glucose Reference Range is dependent on time and content of last meal. Glucose of more than 200 mg/dL in a nonstressed, ambulatory subject supports the diagnosis of Diabetes Mellitus. ADA recommended reference rangePerformed By: #### CMP, CBC #### [facility] [address] [place] [address] USAPotassium [Moles/Vol]4.7 mmol/LNormal3.5-5.1FThe Surgical Hospital at SouthwoodsComment on above:Performed By: #### CMP, CBC #### [facility] [address] [place] [address] USASodium [Moles/Vol]137 mmol/VMgxcnu034-290MctqdlkzbKettering Health Main CampusComment on above:Performed By: #### CMP, CBC #### [facility] [address] [place] [address] USAUrea nitrogen [Mass/Vol]24 mg/dLNormal7-25[facility] CampusComment on above:Performed By: #### CMP, CBC #### [facility] [address] [place] [address] USABasophils Auto (Bld) [#/Vol]Ordered By: Joo Ramos on 12-94-9202Uktgmwgfd (Bld) [#/Vol]0.1 10*3/uL0.0-0.2FThe Surgical Hospital at SouthwoodsBasophils/100 WBC Auto (Bld)Ordered By: Joo Ramos on 09-10-2022 Basophils/100 WBC (Bld)1.1 %.[facility] Main CampusBilirubin Test strip Ql (U)Ordered By: Joo Ramos on 83-32-7646Bjycvpixr Ql (U)Negative NegativeKettering Health Main CampusBilirubin.direct [Mass/volume] in Serum or PlasmaOrdered By: Joo Ramos on 37-25-7982Dxkhpjqaq.direct [Mass/Vol]0.10 mg/dL0.03-0.18FThe Surgical Hospital at SouthwoodsBilirubin.total [Mass/volume] in Serum or PlasmaOrdered By: Joo Ramos on 07-49-3295Ubesaatev [Mass/Vol]0.4 mg/dL0.3-1.0[facility] CampusBioFire Not Detectedon 09-10-2022 BioFire Not DetectedNot detectedNormalNot DetectSelect Medical Specialty Hospital - Boardman, IncComment on above:Result Comment: This is a duplicate RP2.1 COVID (PCR) result to be used for statistical tracking purpose only. PERFORMED BY: [place] [address] PATHOLOGIST CRANE ASSEMBLER EZRA MCCLAIN M.D.Performed By: #### CMP, CBC #### [place] [address] USACOVID-19 Detected/Not DetectedOrdered By: Marilyn Sun on 96-70-6664NQAK-CoV-2 (COVID-19) RNA TERESO+non-probe Ql (Nph)Not detectedNot DetectSelect Medical Specialty Hospital - Boardman, IncComment on above:This is a duplicate RP2.1 COVID (PCR) result to be used for statistical tracking purpose only. Calcium [Mass/volume] in Serum or PlasmaOrdered By: Joo Ramos on 09-10-2022 Calcium [Mass/Vol]9.6 mg/dL8.6-10.3FThe Surgical Hospital at SouthwoodsCarbon dioxide, total [Moles/volume] in Serum or PlasmaOrdered By: Joo Ramos on 03-43-0299VW8 [Moles/Vol]29.0 mmol/L21.0-31.0[facility] Chloride [Moles/volume] in Serum or PlasmaOrdered By: Joo Ramos on 09-10-2022 Chloride [Moles/Vol]99 mmol/N99-509YmttwembpKettering Health Main CampusCholesterol [Mass/volume] in Serum or PlasmaOrdered By: Marilyn Sun on 09-10-2022 Cholesterol [Mass/Vol]169 mg/lL637-311EjtuvfkcyKettering Health Main CampusComment on above:Chol less than 200 mg/dl low riskChol 201-239 mg/dl borderline riskChol 240 mg/dl and greater high riskCholesterol in LDL Calc [Mass/Vol]Ordered By: Marilyn Sun on 59-16-0564Ufgmuathxeh in LDL [Mass/Vol]62 mg/dL0-100[facility] CampusComment on above:LDL ATP III CLASSIFICATIONLDL less than 100 mg/dL OptimalLDL 100-129 mg/dL Near or above nmisbkiXZV749-948 mg/dL Borderline highLDL 160-189 mg/dL HighLDL greater than 189 mg/dL Very high Cholesterol in VLDL Calc [Mass/Vol]Ordered By: Marilyn Sun on 09-10-2022 Cholesterol in VLDL [Mass/Vol]34 mg/dLKettering Health Main CampusColor Auto (U)Ordered By: Joo Ramos on 36-48-2212Rrbpo (U)YellowYellowKettering Health Main CampusComplete Blood Count Auto Diffon 66-41-6760Gnqdrlszm (Bld) [#/Vol]0.1 10*3/uLNormal0.0-0.2FThe Surgical Hospital at SouthwoodsComment on above:Result Comment: PERFORMED BY: [place] [address] PATHOLOGIST CRANE ASSEMBLER EZRA MCCLAIN M.D.Performed By: #### CMP, CBC #### [facility] [address] [place] [address] USABasophils/100 WBC (Bld)1.1 %Normal.[facility] CampusComment on above:Performed By: #### CMP, CBC #### [facility] [address] [place] [id number] USAEosinophils (Bld) [#/Vol]0.1 10*3/uLNormal0.0-0.45 [facility] CampusComment on above:Performed By: #### CMP, CBC #### [facility] [address] [place] [address] USAEosinophils/100 WBC (Bld)1.6 %Normal.[facility] CampusComment on above:Performed By: #### CMP, CBC #### [facility] [address] [place] [address] USAErythrocyte distribution width (RBC) [Ratio]17.5 %High 11.9-15.3FThe Surgical Hospital at SouthwoodsComment on above:Performed By: #### CMP, CBC #### [facility] [address] [place] [address] USAHematocrit (Bld) [Volume fraction]37.7 %Fjmnfz17.0-46.4 [facility] CampusComment on above:Performed By: #### CMP, CBC #### [facility] [address] [place] [address] USAHemoglobin (Bld) [Mass/Vol]12.5 g/yWMhdrxq29.8-15.4 [facility] CampusComdetroit receiving hospital on above:Performed By: #### CMP, CBC #### [place] [address] USALymphocytes (Bld) [#/Vol]1.1 10*3/uLNormal1.00-4.8 [facility] CampusComment on above:Performed By: #### CMP, CBC #### [place] [id number] USALymphocytes/100 WBC (Bld)21.5 %Normal.[facility] CampusComment on above:Performed By: #### CMP, CBC #### [place] [phone] USAMCH (RBC) [Entitic mass]31.8 vsAbuwgi43.7-34.3FThe Surgical Hospital at SouthwoodsComment on above:Performed By: #### CMP, CBC #### [facility] [address] [place] [id number] USAMCV (RBC) [Entitic vol]96.1 kWPihare06-082GraspyaxfKettering Health Main CampusComdetroit receiving hospital on above:Performed By: #### CMP, CBC #### [place] [phone] USAMean Corpuscular HGB Conc33.1 g/iNStplbm62.0-35.0[facility] CampusComment on above:Performed By: #### CMP, CBC #### [facility] [address] [place] [address] USAMonocytes (Bld) [#/Vol]0.3 10*3/uLNormal0.0-0.8[facility] CampusComment on above:Performed By: #### CMP, CBC #### [facility] [facility] [address] [place] [address] USAMonocytes/100 WBC (Bld)18.14 %Normal0.00-20.00[facility] CampusComdetroit receiving hospital on above:Performed By: #### CMP, CBC #### [facility] [address] [place] [address] USAMonocytes/100 WBC (Bld)5.1 %Normal.[facility] CampusComment on above:Performed By: #### CMP, CBC #### [facility] [address] [place] [address] USANeutrophils (Bld) [#/Vol]3.7 10*3/uLNormal1.8-7.7FThe Surgical Hospital at SouthwoodsComment on above:Performed By: #### CMP, CBC #### [facility] [address] [place] [address] USANeutrophils/100 WBC (Bld)70.7 %Normal.[facility] CampusComment on above:Performed By: #### CMP, CBC #### [facility] [address] [place] [address] USANRBC%0.3 /100{WBC}Normal0-0.5FThe Surgical Hospital at SouthwoodsComment on above:Performed By: #### CMP, CBC #### [facility] [address] [place] [address] USAPlatelet mean volume (Bld) [Entitic vol]7.2 fLNormal 6.3-10.7FThe Surgical Hospital at SouthwoodsComment on above:Performed By: #### CMP, CBC #### [facility] [address] [place] [address] USAPlatelets (Bld) [#/Vol]180 10*3/gTIfrlhe489-595ZyoueukjaKettering Health Main CampusComment on above:Performed By: #### CMP, CBC #### [facility] [address] [place] [address] USARBC (Bld) [#/Vol]3.92 10*6/uLNormal3.60-5.00[facility] CampusComment on above:Performed By: #### CMP, CBC #### [facility] [address] [place] [address] USAWBC (Bld) [#/Vol]5.2 10*3/uLNormal3.8-11.6FThe Surgical Hospital at SouthwoodsComment on above:Performed By: #### CMP, CBC #### [facility] [address] [place] [address] USACreatine Kinaseon 59-16-7427EF [Catalytic activity/Vol]39 U/DSmgsym35-610SnelkpjwoKettering Health Main CampusComment on above:Performed By: #### CMP, CBC #### [facility] [address] [place], [place] [address] USACreatine kinase [Enzymatic activity/volume] in Serum or PlasmaOrdered By: Joo Ramos on 60-92-5327FZ [Catalytic activity/Vol]39 U/L [facility] CampusCreatinine [Mass/volume] in Serum or PlasmaOrdered By: Joo Ramos on 76-67-0788Kngiivfypl [Mass/Vol]0.83 mg/dL 0.60-1.20[facility] Main CampusECG 12 lead ECGon 99-63-9775NFP [address] [place] [address] Electrocardiograph Report Signed Patient: Carmen Bledsoe MR#: [id number] 9 : 1960 Acct:[id number] Age/Sex: 61 / F ADM Date: 09/10/22 Loc: Room: [address] [place] [address] Type: ADM IN Attending Dr: Marilyn Sun [...] Electronically Signed By:MAIKOL SIDDIQUI MD Transcribed By: MANUEL Signed By Maikol Siddiqui MD 0 09/11/22 0653[facility] CenterEC [address] [place] [address] Electrocardiograph Report Signed Patient: Carmen Bledsoe MR#: [id number] 9 : 1960 Acct:[id number] Age/Sex: 61 / F ADM Date: 09/10/22 Loc: Room: [address] [place] [address] Type: ADM IN Attending Dr: Marilyn Sun [...] ECGs available Confirmed by Joo Ramos DO ([id number]) on 09/10/2022 6:56:24 PM Referred By: Electronically Signed By:Joo Ramos DO Transcribed By: MUS Signed By Joo Ramos DO [address] [place], [place] [address]Eosinophils Auto (Bld) [#/Vol] Ordered By: Joo Ramos on 46-71-7577Cxkybzqxnrb (Bld) [#/Vol]0.1 10*3/uL 0.0-0.45[facility] CampusEosinophils/100 WBC Auto (Bld)Ordered By: Joo Ramos on 14-48-8290Zrssucretgl/100 WBC (Bld)1.6 %.[facility] CampusErythrocyte distribution width Auto (RBC) [Ratio]Ordered By: Joo Ramos on 36-50-1446Qyryajezzey distribution width (RBC) [Ratio]17.5 %11.9-15.3 [facility] CampusGlobulin Calc (S) [Mass/Vol]Ordered By: Joo Ramos on 40-29-4024Yocltuor (S) [Mass/Vol]2.7 g/dLKettering Health Main CampusGlucose Poct Glucometerson 33-65-0172Xptmwrh [Mass/Vol]188 mg/dLNormal [facility] CampusComment on above:Result Comment: Random Glucose Reference Range is dependent on time and content of last meal. Glucose of more than 200 mg/dL in a nonstressed, ambulatory subject supports the diagnosis of Diabetes Mellitus. PERFORMED BY: [place] [id number] PATHOLOGIST CRANE ASSEMBLER EZRA MCCLAIN M.D.Performed By: #### GLULS #### Point of Care testing ,Glucose [Mass/Vol]118 mg/dLNoMemorial Health System Marietta Memorial HospitalComment on above:Result Comment: Random Glucose Reference Range is dependent on time and content of last meal. Glucose of more than 200 mg/dL in a nonstressed, ambulatory subject supports the diagnosis of Diabetes Mellitus. PERFORMED BY: [address] [address] PATHOLOGIST CRANE ASSEMBLER EZRA MCCLAIN M.D.Performed By: #### GLULS #### Point of Care testing ,Glucose [Mass/volume] in Serum or PlasmaOrdered By: Joo Ramos on 09-10-2022 Glucose [Mass/Vol]91 mg/hH37-834AmjgpcwgaKettering Health Main CampusComment on above:ADA recommended reference rangeRandom Glucose Reference Range is dependent on time and content of last meal. Glucose of more than 200 mg/dL in a nonstressed, ambulatory subject supports the diagnosisof Diabetes Mellitus. Glucose mean value [Mass/volume] in Blood Estimated from glycated hemoglobin Ordered By: Marilyn Sun on 19-14-3567Usbhphi glucose Estimated from glycated hemoglobin (Bld) [Mass/Vol]128 mg/dLKettering Health Main CampusHematocrit Auto (Bld) [Volume fraction]Ordered By: Joo Ramos on 60-26-2701Ywuaujimda (Bld) [Volume fraction]37.7 %34.0-46.4FThe Surgical Hospital at Southwoods Hemoglobin A1c percentageOrdered By: Marilyn Sun on 12-23-9118KuJ3u (Bld) [Mass fraction]6.1 %4.3-5.6FThe Surgical Hospital at SouthwoodsComment on above: Increased risk for diabetes: 5.7 - 6.4diabetes: >6.4glycemic control for adults with diabetes: <7.0Hemoglobin [Mass/volume] in BloodOrdered By: Joo Ramos on 36-36-4532Nphvyqahhj (Bld) [Mass/Vol]12.5 g/dL11.8-15.4FThe Surgical Hospital at SouthwoodsHepatic Panelon 17-50-8239Mlnwaav [Mass/Vol]4.4 g/dLNormal3.5-5.7 [facility] CampusComment on above:Performed By: #### CMP, CBC #### [facility] [address] [place] [address] USAAlbumin/Globulin [Mass ratio]1.6 {ratio}NormalKettering Health Main CampusComment on above:Performed By: #### CMP, CBC #### [facility] [address] [place] [address] USAALP [Catalytic activity/Vol]121 U/DSkqw39-550PovvsrokcKettering Health Main CampusComment on above:Performed By: #### CMP, CBC #### [facility] [address] [place] [address] USAALT [Catalytic activity/Vol]50 U/LNormal7-52[facility] CampusComment on above:Performed By: #### CMP, CBC #### [facility] [address] [place] [address] USAAST [Catalytic activity/Vol]71 U/NTivc25-05EavqdfforKettering Health Main CampusComment on above:Performed By: #### CMP, CBC #### [facility] [address] [place] [address] USABilirubin [Mass/Vol]0.4 mg/dLNormal0.3-1.0[facility] CampusComment on above:Performed By: #### CMP, CBC #### [facility] [address] [place] [address] USABilirubin,Indirect0.3 mg/dLNormalKettering Health Main CampusComment on above:Performed By: #### CMP, CBC #### [facility] [address] [place] [address] USABilirubin.indirect [Mass/Vol]0.10 mg/dLNormal0.03-0.18 [facility] CampusComment on above:Performed By: #### CMP, CBC #### [facility] [address] [place] [address] USAGlobulin (S) [Mass/Vol]2.7 g/dLNormalKettering Health Main CampusComment on above:Performed By: #### CMP, CBC #### [facility] [address] [place] [address] USAProtein [Mass/Vol]7.1 g/dLNormal6.4-8.9[facility] CampusComment on above:Performed By: #### CMP, CBC #### [facility] [address] [place] [address] USAKetones Auto test strip (U) [Mass/Vol]Ordered By: Joo Ramos on 16-71-4543Yfqorxw (U) [Mass/Vol]NegativeNegativeKettering Health Main CampusLaboratory - Chemistry and Chemistry - challengeOrdered By: Joo Ramos on 70-13-4156EPG/1.73 sq M.predicted MDRD (S/P/Bld) [Vol rate/Area] mL/min/{1.73_m2}[facility] CampusLaboratory - CoagulationOrdered By: Joo Ramos on 24-29-4402NI Coag (PPP) [Time]11.8 s9.0-12.9[facility] CampusLeukocytes [#/volume] corrected for nucleated erythrocytes in Blood by Automated counOrdered By: Joo Ramos on 92-88-3714GPZ corrected for nucl RBC Auto (Bld) [#/Vol]5.2 10*3/uL3.8-11.6FThe Surgical Hospital at SouthwoodsLipid Panelon 02-43-6485Osdsvsavhkd [Mass/Vol]169 mg/dLNormal 140-200[facility] CampusComment on above:Order Comment: Comment add onResult Comment: Chol less than 200 mg/dl low risk Chol 201-239 mg/dl borderline risk Chol 240 mg/dl and greater high riskPerformed By: #### CMP, CBC #### [facility] [address] [place] [address] USACholesterol in HDL [Mass/Vol]73 mg/tSTlhynd31-47TfyhyolrvKettering Health Main CampusComment on above:Order Comment: Comment add onResult Comment: HDL CHOL ATP-III CLASSIFICATION Cardiovascular Risk HDL > or equal to 60 mg/dL LOW HDL < 40 mg/dL HIGHPerformed By: #### CMP, CBC #### [facility] [address] [place] [address] USACholesterol.total/Cholesterol in HDL [Mass ratio]2.3 {ratio}Normal<5.0[facility] CampusComment on above:Order Comment: Comment add onResult Comment: PERFORMED BY: [facility] [address] [place] [address] PATHOLOGIST CRANE ASSEMBLER EZRA MCCLAIN M.D.Performed By: #### CMP, CBC #### [facility] [address] [place] [address] USALDL Cholesterol,Ubozlfmujw26 mg/dLNormal0-100[facility] CampusComment on above:Order Comment: Comment add onResult Comment: LDL ATP III CLASSIFICATION LDL less than 100 mg/dL Optimal LDL 100-129 mg/dL Near or above optimal LDL 130-159 mg/dL Borderline high LDL 160-189 mg/dL High LDL greater than 189 mg/dL Very highPerformed By: #### CMP, CBC #### [facility] [address] [place] [address] USATriglyceride w/Gplsef752 mg/dLHigh0-149[facility] CampusComment on above:Order Comment: Comment add onResult Comment: TRIG ATP III CLASSIFICATION TRIG less than 150 mg/dL Normal TRIG 150-199 mg/dL Borderline high TRIG 200-500 mg/dL High TRIG greater than 500 mg/dL Very high Standard traceable to the Center for Disease Conrtrol and Prevention (CDC) test method.Performed By: #### CMP, CBC #### [facility] [address] [place] [address] USAVLDL [address]72 mg/dLNormalKettering Health Main CampusComment on above:Order Comment: Comment add onPerformed By: #### CMP, CBC #### [facility] [address] [place] [address] USALymphocytes Auto (Bld) [#/Vol]Ordered By: Joo Ramos on 99-65-8555Bsfksilllzz (Bld) [#/Vol]1.1 10*3/uL1.00-4.8[facility] CampusLymphocytes/100 WBC Auto (Bld)Ordered By: Joo Ramos on 09-10-2022 Lymphocytes/100 WBC (Bld)21.5 %.[facility] Auto (RBC) [Entitic mass]Ordered By: Joo Ramos on 09-10-0291YBR (RBC) [Entitic mass]31.8 pg24.7-34.3FSelect Medical TriHealth Rehabilitation HospitalHC Auto (RBC) [Mass/Vol]Ordered By: Joo Ramos on 30-52-4648ARHX (RBC) [Mass/Vol]33.1 g/dL32.0-35.0[facility] CenterV Auto (RBC) [Entitic vol]Ordered By: Joo Ramos on 90-71-0085XWO (RBC) [Entitic vol]96.1 cQ60-937IikvmhgffKettering Health Main Campus Monocyte distribution width [Entitic volume] in Blood by AutomatedOrdered By: Joo Ramos on 06-14-3666Ccnvafha distribution width Auto (Bld) [Entitic vol] 18.14 %0.00-20.00[facility] CampusMonocytes Auto (Bld) [#/Vol] Ordered By: Joo Ramos on 76-14-2066Gecinsbxg (Bld) [#/Vol]0.3 10*3/uL0.0-0.8 [facility] CampusMonocytes/100 WBC Auto (Bld)Ordered By: Joo Ramos on 17-95-0517Mgtwseeyf/100 WBC (Bld)5.1 %.[facility] CampusNatriuretic peptide B [Mass/Vol]Ordered By: Joo Ramos on 09-10-2022 Natriuretic peptide B (Bld) [Mass/Vol]6.0 pg/mL5-100[facility] CampusNeutrophils Auto (Bld) [#/Vol]Ordered By: Joo Ramos on 09-10-2022 Neutrophils (Bld) [#/Vol]3.7 10*3/uL1.8-7.7FThe Surgical Hospital at Southwoods Neutrophils/100 WBC Auto (Bld)Ordered By: Joo Ramos on 09-10-2022 Neutrophils/100 WBC (Bld)70.7 %.[facility] CampusNitrite Test strip Ql (U)Ordered By: Joo Ramos on 93-95-5804Dlkcsnt Ql (U)NegativeNegative [facility] CampusNo Panel InformationOrdered By: Joo Ramos on 33-17-4233Lwdbwmrk Creatinine Clearance (Nitb522.50[facility] CampusNucleated erythrocytes [Presence] in Blood by Automated countOrdered By: Joo Ramos on 25-31-9615Fhorztftu RBC Auto Ql (Bld)0.3 /100{WBC}0-0.5FThe Surgical Hospital at SouthwoodsPartial Thromboplastin Timeon 27-47-4700oVEW Coag (Bld) [Time]31.2 gGvbmdr05.1-36.5FThe Surgical Hospital at SouthwoodsComment on above: Result Comment: PERFORMED BY: [facility] [address] [place] [address] PATHOLOGIST CRANE ASSEMBLER EZRA MCCLAIN M.D.Performed By: #### CMP, CBC #### [place] [address] USAPlatelet mean volume Auto (Bld) [Entitic vol]Ordered By: Joo Ramos on 65-82-5796Bdpjyctb mean volume (Bld) [Entitic vol]7.2 fL6.3-10.7 [facility] CampusPlatelet poor plasma international normalized ratio (INR) by coagulation assay (relatOrdered By: Joo Ramos on 93-75-4742KOR Coag (PPP) [Relative time]1.0 {INR}[facility] CampusComment on above:INR Therapeutic Range A) Pre- and Peroperative OAT started two weeks before surgery. NOT HIP SURGERY: 1.5 - 2.5 HIP SURGERY: 2 - 3B) Primary and secondary prevention of venous THROMBOSIS: 2 - 3C) Active venous thrombosis, pulmonary embolismand prevention of recurrent venous thrombosis: 2 - 3D) Preve ntion of arterial thromboembolismincluding patients with mechanical heart valves: 3 - 4.5Platelets Auto (Bld) [#/Vol]Ordered By: Joo Ramos on 09-10-2022 Platelets (Bld) [#/Vol]180 10*3/eZ891-543MlityuiquKettering Health Main Campus Potassium [Moles/volume] in Serum or PlasmaOrdered By: Joo Ramos on 09-10-2022 Potassium [Moles/Vol]4.7 mmol/L3.5-5.1FThe Surgical Hospital at SouthwoodsProtein Auto test strip (U) [Mass/Vol]Ordered By: Joo Ramos on 21-49-8461Auyewgn (U) [Mass/Vol]NegativeNegativeKettering Health Main CampusProtein [Mass/volume] in Serum or PlasmaOrdered By: Joo Ramos on 92-18-6410Nzudtoa [Mass/Vol]7.1 g/dL6.4-8.9[facility] CampusProthrombin Time INRon 30-13-1453YOU Coag (PPP) [Relative time]1.0 {INR}[facility] Comment on above:Result Comment: INR Therapeutic Range A) Pre- and [...] patients with mechanical heart valves: 3 - 4.5Performed By: #### CMP, CBC #### [address] [address] USAPT Coag (PPP) [Time]11.8 sNormal9.0-12.9[facility] CampusComment on above:Performed By: #### CMP, CBC #### [address] [address] USARBC Auto (Bld) [#/Vol]Ordered By: Joo Ramos on 45-67-3492QBX (Bld) [#/Vol]3.92 10*6/uL3.60-5.00[facility] CampusRespiratory (Upper) Panel, PCRon 18-06-5617Xkivrtbkwnb (Upper) Panel, PCR Adenovirus Not detected Bordetella [...] COVID-19 Detected/Not Detected Not detected PERFORMED BY: [place] [address] PATHOLOGIST CRANE ASSEMBLER EZRA MCCLAIN M.D.[facility] CenterComment on above: Performed By: #### CMP, CBC #### [facility] [address] [place], [place] [address] USARespiratory pathogens DNA and RNA panel - Nasopharynx by TERESO with non-probe detectionOrdered By: Marilyn Sun on 46-62-8191Tnaqryhsxqu pathogens DNA and RNA panel TERESO+non-probe (Nph)[facility] Healtherum or plasma albumin/globulin mass ratioOrdered By: Joo Ramos on 58-03-9933Cmhwwoe/Globulin [Mass ratio]1.6 {ratio}[facility] Healtherum or plasma anion gap determinationOrdered By: Joo Ramos on 98-08-4776Pghrl gap [Moles/Vol]13.7 mmol/L6.0-15.0[facility] Healtherum or plasma high density lipoprotein (HDL) cholesterol measurement Ordered By: Marilyn Sun on 15-47-9912Fzoiflybjeq in HDL [Mass/Vol]73 mg/dL 35-85[facility] CampusComment on above:HDL CHOL ATP-III CLASSIFICATION Cardiovascular RiskHDL > or equal to 60 mg/dL LOWHDL < 40 mg/dL HIGHSerum or plasma non-glucuronidated bilirubin measurement (mass/volume) Ordered By: Joo Ramos on 18-96-6195Kdcuvnlxq.indirect [Mass/Vol]0.3 mg/dL [facility] Healtherum or plasma total cholesterol/high density lipoprotein (HDL) cholesterol mass ratOrdered By: Marilyn Sun on 09-10-2022 Cholesterol.total/Cholesterol in HDL [Mass ratio]2.3 {ratio}<5.0Parkview Healthodium [Moles/volume] in Serum or PlasmaOrdered By: Joo Ramos on 57-93-2570Vziuue [Moles/Vol]137 mmol/X352-743NcgcxyxbgParkview Healthpecific gravity Auto test strip (U) [Rel density]Ordered By: Joo Ramos on 60-42-6669Wfgpnkeu gravity (U) [Rel density]1.0051.001-1.030 [facility] CampusTriglyceride [Mass/volume] in Serum or Plasma Ordered By: Marilyn Sun on 41-22-4059Ejmqomlpdohp [Mass/Vol]172 mg/dL0-149 [facility] CampusComment on above:TRIG ATP III CLASSIFICATIONTRIG less than 150 mg/dL NormalTRIG 150-199 mg/dL Borderline highTRIG 200-500 mg/dL High TRIG greater than 500 mg/dL Very highStandard traceable to the Center for Disease Conrtrol and Prevention (CDC) test method. Troponin I High Sensitivityon 24-89-9815Cjddzjhb I High Sensitivity6.3 pg/mL Normal0.0-15.0[facility] CampusComment on above:Result Comment: PERFORMED BY: [place] [address] PATHOLOGIST CRANE ASSEMBLER EZRA MCCLAIN M.D.Performed By: #### HS TROP #### [facility] [address] [place] [address] USATroponin I High Sensitivity6.6 pg/mLNormal0.0-15.0 [facility] CampusComment on above:Result Comment: PERFORMED BY: [place] [address] PATHOLOGIST CRANE ASSEMBLER EZRA MCCLAIN M.D.Performed By: #### HS TROP #### [place] [address] USATroponin I High Sensitivity6.3 pg/mLNormal0.0-15.0 [facility] CampusComment on above:Result Comment: PERFORMED BY: [place] [address] PATHOLOGIST CRANE ASSEMBLER EZRA MCCLAIN M.D.Performed By: #### CMP, CBC #### [facility] [address] [place], [place] [address] USATroponin I.cardiac [Mass/volume] in Serum or Plasma by Detection limit <= 0.01 ng/Ordered By: Marilyn Sun on 78-75-9196Rxscgusk I.cardiac DL <= 0.01 ng/mL [Mass/Vol]5.3 pg/mL0.0-15.0[facility] CampusTroponin I.cardiac [Mass/volume] in Serum or Plasma by Detection limit <= 0.01 ng/Ordered By: Joo Ramos on 93-47-5267Mxttwkje I.cardiac DL <= 0.01 ng/mL [Mass/Vol]6.3 pg/mL0.0-15.0[facility] CampusUrea nitrogen [Mass/volume] in Serum or PlasmaOrdered By: Joo Ramos on 47-73-0299Ehvy nitrogen [Mass/Vol]24 mg/dL7-25[facility] CampusUrinalysison 61-51-0676Emdfdrpfwi (U)ClearNormalClearKettering Health Main CampusComment on above:Order Comment: Name Collection Type:: Clean-Voided MidstreamPerformed By: #### CMP, CBC #### [facility] [address] [place], [place] [address] USABilirubin,UrineNegativeNormalNegativeKettering Health Main CampusComment on above:Order Comment: Name Collection Type:: Clean- Voided MidstreamPerformed By: #### CMP, CBC #### [facility] [address] [place], [place] [address] USAColor (U)YellowNormalYellowKettering Health Main CampusComment on above:Order Comment: Name Collection Type:: Clean-Voided MidstreamPerformed By: #### CMP, CBC #### [facility] [address] [place], [place] [address] USAGlucose Ql (U)NormalNormalNormCleveland Clinic Mercy HospitalComment on above:Order Comment: Name Collection Type:: Clean-Voided MidstreamPerformed By: #### CMP, CBC #### [facility] [address] [place] [address] USAKetones Ql (U)NegativeNormalNegativeKettering Health Main CampusComment on above:Order Comment: Name Collection Type:: Clean- Voided MidstreamPerformed By: #### CMP, CBC #### [facility] [address] [place], [place] [address] USALeukocyte esterase Test strip Ql (U)NegativeNormalNegWood County HospitalComment on above:Order Comment: Name Collection Type:: Clean-Voided MidstreamPerformed By: #### CMP, CBC #### [facility] [address] [place] [address] USANitrite,UrineNegativeNormalNegativeKettering Health Main CampusComment on above:Order Comment: Name Collection Type:: Clean- Voided MidstreamPerformed By: #### CMP, CBC #### [place] [id number] USAOccult Blood,UrineNegativeNormalNegRegency Hospital Cleveland EastComment on above:Order Comment: Name Collection Type:: Clean- Voided MidstreamResult Comment: PERFORMED BY: [place] [address] PATHOLOGIST CRANE ASSEMBLER EZRA MCCLAIN M.D.Performed By: #### CMP, CBC #### [place] [address] USApH (U)5.5 [pH]Normal5.0-9.0[facility] CampusComment on above:Order Comment: Name Collection Type:: Clean-Voided MidstreamPerformed By: #### CMP, CBC #### [place] [address] USAProtein,UrineNegativeNormalNegRegency Hospital Cleveland EastComment on above:Order Comment: Name Collection Type:: Clean- Voided MidstreamPerformed By: #### CMP, CBC #### [place] [address] USASpecificy Vill[place],Urine1.706Ygxcvx8.001-1.030[facility] CampusComment on above:Order Comment: Name Collection Type:: Clean-Voided MidstreamPerformed By: #### CMP, CBC #### [place] [address] USAUrobilinogen,UrineNormalNormalNormCleveland Clinic Mercy HospitalComment on above:Order Comment: Name Collection Type:: Clean- Voided MidstreamPerformed By: #### CMP, CBC #### [place] [address] USAUrine clarity by refractometry automatedOrdered By: Joo Ramos on 29-48-4259Rnedndi Refractometry automated (U)ClearCleMount Carmel Health SystemUrine glucose measurement by automated test strip (mass/volume)Ordered By: Joo Ramos on 16-26-1251Xcowrtc Auto test strip (U) [Mass/Vol]Normal mg/dLAshtabula County Medical CenterUrine hemoglobin detection by automated test stripOrdered By: Joo Ramos on 94-33-7755Qkbppnwurp Auto test strip Ql (U)NegativeNegRegency Hospital Cleveland EastUrine leukocyte esterase detection by automated test stripOrdered By: Joo Ramos on 19-16-0473Cswniqqtq esterase Auto test strip Ql (U)NegativeNegRegency Hospital Cleveland EastUrobilinogen Auto test strip (U) [Mass/Vol]Ordered By: Joo Ramos on 03-32-1936Nlaeyaodgpqu (U) [Mass/Vol]Normal mg/dLAshtabula County Medical CenterWBC Auto (Bld) [#/Vol]Ordered By: Joo Ramos on 98-30-4215CFQ (Bld) [#/Vol]5.2 10*3/uL3.8-11.6FThe Surgical Hospital at Southwoods XR chest 2V*on 85-15-1442VC chest 2V*[facility] [place] [address] XRay Report Signed Patient: Carmen Bledsoe MR#: [id number] 9 : 1960 Acct:[id number] Age/Sex: 61 / F ADM Date: 09/10/22 [...] Vicente Jr., D.O.09/10/2022 11:55 AM Dictation Location: RADIO-PC-12 Transcribed By: PWS 09/10/221154 Dictated By: Jacques Vicente Jr, DO 09/10/221154 Signed By: 09/10/221154NoMemorial Health System Marietta Memorial HospitalpH Auto test strip (U) Ordered By: Joo Ramos on 86-36-3745oL (U)5.5 [pH]5.0-9.0[facility] CampusCHEMISTRYOrdered By: SYSTEM SYSTEM on 08-41-5568Bhjtt gap [Moles/Vol]12 mmol/LNormal6 - 16 mEq/LFTMC RemisolCalcium [Mass/Vol]8.9 mg/dL Normal8.9 - 11.1 mg/dLFTMC RemisolChloride [Moles/Vol]96 mmol/ENkq317 - 111 mmol/LFTMC RemisolCO2 [Moles/Vol]29 mmol/QGkxjtx75 - 31 mmol/LFTMC Remisol Creatinine [Mass/Vol]0.9 mg/dLNormal0.5 - 1.3 mg/dLFTMC RemisolGFR/1.73 sq M.predicted among blacks MDRD (S/P/Bld) [Vol rate/Area]mL/min/1.73 l7Mlbmmd >=59mL/min/1.73 m2FT Chem SGFR/1.73 sq M.predicted among non-blacks MDRD (S/P/Bld) [Vol rate/Area]mL/min/1.73 q8Npcxhs>=59mL/min/1.73 m2FT Chem S Glucose [Mass/Vol]102 mg/fVIdbfbz71 - 199 mg/dLFTMC RemisolPotassium [Moles/Vol] 4.3 mmol/LNormal3.5 - 5.3 mmol/LFTMC RemisolSodium [Moles/Vol]133 mmol/HFir768 - 145 mmol/LFTMC RemisolUrea nitrogen [Mass/Vol]17 mg/dLNormal5 - 21 mg/dLFTMC RemisolUrea nitrogen/Creatinine [Mass ratio]19 mg/asAwkvac97 - 20FTMC Remisol CHEMISTRYOrdered By: SYSTEM SYSTEM on 82-94-0981Fnqlzha [Mass/Vol]4.1 g/dLNormal 3.3 - 5.0 gm/dLFTMC RemisolAlbumin/Globulin [Mass ratio]1.2 {ratio}Normal1.1 - 2.2FTMC RemisolALP [Catalytic activity/Vol]110 [iU]/dHigh21 - 98 Int._Unit/LFTMC RemisolALT No additional P-5'-P [Catalytic activity/Vol]55 [iU]/dHigh6 - 46 Int._Unit/LFTMC RemisolAnion gap [Moles/Vol]17 mmol/LHigh6 - 16 mEq/LFTMC RemisolAST [Catalytic activity/Vol]89 [iU]/dHigh5 - 43 Int._Unit/LFTMC Remisol Bilirubin [Mass/Vol]0.7 mg/dLNormal0.0 - 1.1 mg/dLFTMC RemisolCalcium [Mass/Vol] 8.7 mg/dLLow8.9 - 11.1 mg/dLFTMC RemisolChloride [Moles/Vol]89 mmol/RXtn241 - 111 mmol/LFTMC RemisolCholesterol [Mass/Vol]139 mg/iMYqkiyi282 - 200 mg/dLFTMC RemisolCholesterol in HDL [Mass/Vol]61 mg/dLInvalid Interpretation CodeFTMC RemisolCholesterol in LDL [Mass/Vol]61 mg/dLNormal<=129mg/dLFTMC Remisol Cholesterol in VLDL [Mass/Vol]28 mg/dLNormal7 - 40 mg/dLFTMC RemisolCO2 [Moles/Vol]29 mmol/YNgjoad29 - 31 mmol/LFTMC RemisolCreatinine [Mass/Vol]0.7 mg/dLNormal0.5 - 1.3 mg/dLFTMC RemisolGFR/1.73 sq M.predicted among blacks MDRD (S/P/Bld) [Vol rate/Area]mL/min/1.73 g7Satrpw>=59mL/min/1.73 m2FT[facility] Chem S GFR/1.73 sq M.predicted among non-blacks MDRD (S/P/Bld) [Vol rate/Area] mL/min/1.73 i6Yywnwe>=59mL/min/1.73 m2FTMC Chem SGlobulin (S) [Mass/Vol]3.5 g/dL Normal1.4 - 4.0 gm/dLFTMC RemisolGlucose [Mass/Vol]80 mg/iAVdbeih88 - 199 mg/dL [facility] RemisolPotassium [Moles/Vol]3.3 mmol/LLow3.5 - 5.3 mmol/LFTMC Remisol Protein [Mass/Vol]7.6 g/dLNormal6.0 - 7.8 gm/dLFTMC RemisolSodium [Moles/Vol]132 mmol/ZUlc639 - 145 mmol/LFTMC RemisolTriglyceride [Mass/Vol]139 mg/dLNormal <=149mg/dLFTMC RemisolTSH Qn4.64 m[IU]/LNormal0.34 - 5.60 mcIU/mLFTMC Remisol Urea nitrogen [Mass/Vol]16 mg/dLNormal5 - 21 mg/dLFTMC RemisolUrea nitrogen/Creatinine [Mass ratio]23 mg/yaSimg95 - 20FTMC RemisolCHEMISTRYOrdered By: Hilario Loes on 42-33-5154Qyiajau DL <= 20 mg/L (U) [Mass/Vol]4.6 microgram/mLNormal0.0 - 19.0 mcg/mLFTMC RemisolCHEMISTRYOrdered By: Alfredo Pisano on 28-50-6096NsM6p (Bld) [Mass fraction]6.3 %High<=5.9%[facility] ChemAutoSSHEMATOLOGYOrdered By: Arlene Andrade on 22-67-4161Tyhdlnzjlis distribution width (RBC) [Ratio]16.6 %High10.9 - 14.2 %[facility] HemeAutoSSHematocrit (Bld) [Volume fraction]42.3 %Shueut73.0 - 46.0 %[facility] HemeAutoSSHemoglobin (Bld) [Mass/Vol]13.7 g/dUGkihcg21.0 - 16.0 gm/dLFTMC HemeAutoSSMCH (RBC) [Entitic mass]30.6 qvQirijw89.0 - 34.0 pgFVETERANS AFF[facility]IRS [facility] [place] HemeAutoSSMCHC (RBC) [Mass/Vol]32.4 g/dL Vcfrjc60.4 - 36.0 gm/dLCORNERSTONE [facility] [place] HemeAutoSSMCV (RBC) [Entitic vol]94.5 xHKxiezn87.0 - 100.0 fLCORNERSTONE SPECIALTY [facility] [place] [place] HemeAutoSSPlatelet mean volume (Bld) [Entitic vol]7.7 fLNormal6.4 - 10.8 fLCORNERSTONE SPECIALTY [facility] [place] [place] HemeAutoSSPlatelets (Bld) [#/Vol]203.0 E9/WCtvbtz534.0 - 500.0 E9/L FT HemeAutoSSRBC (Bld) [#/Vol]4.5 E12/LNormal4.3 - 5.9 E12/LFTMC HemeAutoSSWBC corrected for nucl RBC Auto (Bld) [#/Vol]7.1 E9/LNormal4.0 - 11.0 E9/LFTMC HemeAutoSSXR CHEST (2 VW)on 55-06-9523Dohnyasv chest. MHPN RIS CONSOLIDATEDEXAM: XR CHEST (2 VW) HISTORY: R06.02 shortness of breath, obstructive sleep apnea. COMPARISON: Chest 09/06/2019 TECHNIQUE: 2 views chest FINDINGS: Heart size normal. Lungs clear. Bony thorax and upper abdomen normal. PN Casa Stanton Jr., MD - 05/21/2021 EXAM: XR CHEST (2 VW) HISTORY: R06.02 shortness of breath, obstructive sleep apnea. COMPARISON: Chest 09/06/2019 TECHNIQUE: 2 views chest FINDINGS: Heart size normal. Lungs clear. Bony thorax and upper abdomen normal. IMPRESSION: Negative chest. [employer] Phone: radiology Study observation (narrative)[employer] Phone: XR CHEST (2 VW)Ordered By: Casa Minor on 05-21-2021 [employer] Phone: [phone]-39kv [id number]-CoV-2, RapidNot DetectedNot [facility] Eastment on above: Rapid NAAT: The specimen is [...] management decisions. Fact sheet for Healthcare Providers: https://www.fda.gov/media/897253/download Fact sheet for Patients: https://www.fda.gov/media/130180/download Methodology: Isothermal Nucleic Acid Amplification Source.[facility], [facility] 00-40-3108VSDX-CoV-2MKarns City, KYUS PELVIS COMPLETEon 02-19-20201. 8 cm intrauterine fibroid. 2. Likely vascular polyp in the cervix.[facility], KYEXAM: US PELVIS COMPLETE HISTORY: N85.2. Enlarged uterus [...] cm. Right ovary: 3.1 x 2.1 x 1.4cm. Left ovary: 2.8 x 2.0 x 1.3 cm.[facility], KYEdi, pn Incoming Radiant Results From [employer] - 02/19/2020 4:19 PM EDT EXAM: US [...] 2. Likely vascular polyp in the cervix. [facility], SCBUN & creatinineon 91-27-5315Ehvzozjyae [Mass/Vol]0.81 mg/dL 0.5 - 0.9 mg/dLMercy Health Anderson Hospital, KYGFR >60>60 mL/minMercy Health Anderson Hospital, KYGFR Non->60>60 mL/minMercy Health Anderson Hospital, KYGFR/1.73 sq M predicted among non-blacks MDRD (S/P/Bld) [Vol rate/Area][place], KYComment on above:Average GFR for 50-59 years old: 93 mL/min/1.73sq m Chronic Kidney Disease: <60 mL/min/1.73sq m Kidney failure: <15 mL/min/1.73sq m eGFR calculated using average adult body mass. Additional eGFR calculator available at: http://www.[employer]/multiple_crcl_2012.htm GFR/1.73 sq M predicted among non-blacks MDRD (S/P/Bld) [Vol rate/Area]NOT REPORTEDMercy Health Anderson Hospital, SCUrea nitrogen [Mass/Vol]15 mg/dL6 - 20 mg/dLMercy Health Anderson Hospital, KYCT ABDOMEN PELVIS W IV CONTRAST Additional Contrast? Oralon 07-13-5548Uf acute process in the abdomen or pelvis. Enlarged, fatty liver. Prominent, bulky uterus, a nonspecific finding that may be related to underlying fibroids or adenomyosis.[place], KYEXAMINATION: CT ABDOMEN PELVIS W IV CONTRAST HISTORY: [...] without evidence of focal lesion or hydronephrosis. Nobowel wall thickening or dilation. The appendix is unremarkable. The urinary bladder appears unremarkable. The uterus is bulky and prominent in size. No adnexal mass. Atherosclerotic calcification ofthe normal caliber abdominal aorta and its branches. No lymphadenopathy, free fluid or free air. Chronic degenerative changes in the thoracolumbar spine.[facility] HospitalSylvan SourceLEE'S SUMMIT HOSPITAL, Tony, Pauly Incoming Radiant Results From [employer] - 02/07/2020 3:09 PM EDT EXAMINATION: CT [...] be related to underlying fibroids or adenomyosis. Oso TechnologiesLEE'S SUMMIT HOSPITAL, [facility] Auto Differentialon 66-68-9776Xcyesrzuh (Bld) [#/Vol] 0.00 10*3/uLOcean Gate, KYBasophils/100 WBC (Bld)0 %0 - 2 %[facility], KYDifferential TypeYESMAdena Fayette Medical Center, KYEosinophils (Bld) [#/Vol]0.10 10*3/[facility] [place], KYEosinophils/100 WBC (Bld)1 %0 - 5 %[facility], KYErythrocyte distribution width (RBC) [Ratio]15.7 %High12.1 - 15.2 %[facility], KYHematocrit (Bld) [Volume fraction]37.6 %36 - 46 %[facility], MERCYHemoglobin (Bld) [Mass/Vol]12.4 g/dL12 - 16 g/dLMercy Health Anderson Hospital, [place] Interpretation and review of laboratory resultsAbnormalMercy Health Anderson Hospital, [place] Lymphocytes (Bld) [#/Vol]1.40 10*3/[facility], MERCYLymphocytes/100 WBC (Bld)20 %15 - 40 %[facility], [facility] (RBC) [Entitic mass]29.0 pg26 - 34 pg [facility], SCMCHC (RBC) [Mass/Vol]33.0 g/dL31 - 37 g/dLMercy Health Anderson Hospital, SCMCV (RBC) [Entitic vol]87.9 fL80 - 100 fLMercy Health Anderson Hospital, KYMonocytes (Bld) [#/Vol]0.40 10*3/[facility], KYMonocytes/100 WBC (Bld)6 %4 - 8 %[facility], MERCYPlatelet mean volume (Bld) [Entitic vol]NOT REPORTED6 - 12 fLMercy Health Anderson Hospital, KYPlatelets (Bld) [#/Vol]NOT REPORTEDMercy Health [facility] Hospital, KYPlatelets (Bld) [#/Vol]268 10*3/[facility], KYRBC (Bld) [#/Vol]4.28 10*6/uL4 - 5.2 m/[facility]- [place], KYRBC morphology finding Nom (Bld)NOT REPORTEDMercy Health [facility] Hospital, SCSegmented neutrophils/100 WBC (Bld)73 %47 - 75 %[facility]- [place], KYSegs Absolute5.10[facility]- [place], KYWBC (Bld) [#/Vol]7.1 10*3/uLMerProvidence Sacred [facility] Medical Center- [place], KYWBC (Bld) [#/Vol]NOT REPORTEDper 100 WBCSumma Health [facility]- [place], KYWBC MorphologyNOT REPORTEDSum[facility] Health [facility]- [place], KYComprehensive Metabolic Panelon 99-14-1098Jloxemk [Mass/Vol]4.5 g/dL3.5 - 5.2 g/dLSumma Health [facility]- [place], [place] Albumin/Globulin [Mass ratio]NOT REPORTEDSumma Health [facility]- [place], KYALP [Catalytic activity/Vol]92 U/L35 - 104 U/LMclermont county hospital Health- [place], KYALT [Catalytic activity/Vol] 28 U/L5 - 33 U/LMclermont county hospital Health- [place], KYAnion gap [Moles/Vol]13 mmol/L9 - 17 mmol/L [facility]- [place], KYAST [Catalytic activity/Vol]19 U/L<32[facility]- [place], [place] Bilirubin Ql (U)0.40 mg/dL0.3 - 1.2 mg/dLSumma Health [facility]- [place], KYBun/Cre Dndgi53Ankb [facility]- [place], KYCalcium [Mass/Vol]10.2 mg/dL8.6 - 10.4 mg/dLSumma Health [facility]- [place], KYChloride [Moles/Vol]99 mmol/L98 - 107 mmol/LMSt. [facility]- [place], KYCO2 [Moles/Vol]28 mmol/L20 - 31 mmol/LMclermont county hospital Health- [place], KYCreatinine [Mass/Vol]0.86 mg/dL0.5 - 0.9 mg/dLSumma Health [facility]- [place], KYGFR >60>60 mL/minSumma Health [facility] Campus- [place], KYGFR Non->60>60 mL/minSumma Health Ak[facility] Campus- [place], KYGFR/1.73 sq M predicted among non-blacks MDRD (S/P/Bld) [Vol rate/Area]NOT REPORTEDSumma Health [facility]- [place], KYGFR/1.73 sq M predicted among non-blacks MDRD (S/P/Bld) [Vol rate/Area][facility], KYComment on above:Average GFR for 50-59 years old: 93 mL/min/1.73sq m Chronic Kidney Disease: <60 mL/min/1.73sq m Kidney failure: <15 mL/min/1.73sq m eGFR calculated using average adult body mass. Additional eGFR calculator available at: http://www.[employer]/multiple_crcl_2012.htm Glucose [Mass/Vol]121 mg/pTVhjn35 - 99 mg/dLMercy Health Anderson Hospital, SCPotassium [Moles/Vol]4.6 mmol/L3.7 - 5.3 mmol/LMAdena Fayette Medical Center, KYProtein [Mass/Vol]7.7 g/dL6.4 - 8.3 g/dLMercy Health [facility] Hospital, KYSodium [Moles/Vol]140 mmol/L135 - 144 mmol/[facility], SCUrea nitrogen [Mass/Vol]22 mg/dLHigh6 - 20 mg/dLMercy Health [facility] Hospital, SCHemoglobin A1Con 75-00-2382Mywzzys [Mass/Vol]128 mg/dLMercy Health Anderson Hospital, SCComment on above:The ADA and AACC recommend providing the estimated average glucose result to permit better patient understanding of their HBA1c result. HbA1c (Bld) [Mass fraction]6.1 %High4.8 - 5.9 %[place], [place] Interpretation and review of laboratory resultsAbnormalOcean [place], KYLipid Panelon 30-21-4883Fzfazqcjsne [Mass/Vol]166 mg/dL<200[place], KYComment on above: Cholesterol Guidelines: <200 Desirable 200-240 Borderline >240 Undesirable Cholesterol in HDL [Mass/Vol]39 mg/dLLow>40[place], KYComment on above: HDL Guidelines: <40 Undesirable 40-59 Borderline >59 Desirable Cholesterol in LDL [Mass/Vol]71 mg/dL0 - 130 mg/dLOcean [place], KYComment on above: LDL Guidelines: <100 Desirable 100-129 Near to/above Desirable 130-159 Borderline >159 Undesirable Direct (measured) LDL and calculated LDL are not interchangeable tests. Cholesterol in VLDL [Mass/Vol]NOT REPORTEDHigh1 - 30 mg/dLOcean [place], [place] Cholesterol.total/Cholesterol in HDL [Mass ratio]4.3 {ratio}<5[facility] [employer] AZMERCYTriglyceride [Mass/Vol]280 mg/dLHigh<150[facility] [employer] AZMERCYComment on above: Triglyceride Guidelines: <150 Desirable 150-199 Borderline 200-499 High >499 Very high Based on AHA Guidelines for fasting triglyceride, April 2012. Magnesiumon 59-37-4315Szxqgsttl [Mass/Vol]1.9 mg/dL1.6 - 2.6 mg/dLChildren'S Hospital For Rehabilitation Fortune[employer] AZMERCYOtheron 57-53-5395Sumensiihwweys and review of laboratory resultsAbnormal [facility] [employer] AZMERCYImmature granulocytes (Bld) [#/Vol]NOT REPORTED0 %[facility] [employer] AZMERCYPatient Fasting?on 72-73-2960Nxrxqtx Fasting?yesMercy Health Anderson HospitalMERCYTSH with Reflexon 31-68-0976STQ Qn2.01 m[IU]/LMercMiami Children's HospitalMERCYVitamin D 25 Hydroxyon 85-90-2468Oryxjkzdrybatl and review of laboratory resultsAbnormal [facility] [employer] AZMERCYVit D, 25-Hwepvxu78.5 ng/mLLow30 - 100 ng/mLMercy Health Anderson HospitalMERCYComment on above: Reference Range: Vitamin D status Range Deficiency <20 ng/mL Mild Deficiency 20-30 ng/mL Sufficiency 30-100 ng/mL Toxicity >100 ng/mL XR CHEST STANDARD (2 VW)on 70-42-1451Tj evidence of acute disease in the chest or change from 02/23/2018.[facility] GroovinAdsLEE'S [facility]MIT [facility] MERCYCHEST, TWO VIEWS, 09/06/2019: CLINICAL HISTORY: Shortness of breath for 2-3 months. TECHNIQUE: A PA view and two lateral views of the chest. COMPARISON: 02/23/2018. FINDINGS: Cardiac size is upper rangeof normal and unchanged. Pulmonary vascularity is normal. There is a small band of scar in the right mid-lower lung zone, unchanged. The lungs are otherwise clear. The costophrenic angles are sharp. There is mild chronic decrease in height of multiple consecutive mid and lower thoracic vertebral bod ies with mild-moderate changes of degenerative disc disease throughout this region of the thoracic spine, unchanged. There is mild atherosclerotic calcification and tortuosity of the thoracic aorta.[facility] [employer] AZLosi, Mhpn Incoming Radiant Results From [employer] - 09/06/2019 10:11 PM EST CHEST, TWO [...] in the chest or change from 02/23/2018. [facility], MERCY Vital Signs Date TimeVital SignValuePerforming NwfusovssMtcqoguk35-22-5002 09:54-0400Body qegzow598.02 cmTammy Nigel WATERMAN Work Phone: [phone]10-01-2025 09:54-0400 Body mass index (BMI) [Ratio]62.8 kg/j5Qvwvh Nigel WATERMAN Work Phone: [phone]10-01-2025 09:54-0400 Body riyzxl867.02 kgTammy Nigel CEJA-Royr Work Phone: [phone] [place], [place] 4631105-07-2025 09:58-0400 Body xtuajm640.6 cmNA Devora SAMPSON Work Phone: [facility]05-07-2025 09:58-0400Body mass index (BMI) [Ratio]54.72 kg/m2NA Devora SAMPSON Work Phone: [facility]05-07-2025 09:58-0400Body weight 153.77 kgNA Devora SAMPSON Work Phone: [facility]05-07-2025 09:58-0400Diastolic blood xelfutvv91 mm[Hg]NA Devora SAMPSON Work Phone: [phone] [place], [place] 4272905-07-2025 09:58-0400Heart rate85 /Zac Dean MD Work Phone: [phone] [place], [place] 4272905-07-2025 09:58-0400Respiratory rate22 /Zac Dean MD Work Phone: [phone] [place], [place] 7203905-07-2025 09:58-6224QvH5% (BldA) [Mass fraction]97 %MALINA Dean MD Work Phone: [phone]05-07-2025 09:58-0400Systolic blood mm[Hg]MALINA Daen MD Work Phone: [phone] [place], [place] 7203901-15-2025 11:52-0500Blood Pressure LocationTammy Nigel [phone]-Sbexs[address] [place] [address] 07-18-2024 11:52-0500Body surkgpuhkrw05.52 [degF]Paris Rebolledoant 145-9194Zpstcy-Kwaie[address] [place] [address] 07-18-2024 11:52-0500Diastolic blood qjelqwpz68 mm[Hg]Paris Nigel [phone]-Ptgxk[address] [place] [address] 07-18-2024 11:52-0500Heart rate78 /minTammy Nigel [phone]-Jjwfj[address] [place] [address] 07-18-2024 11:52-0500Respiratory rate18 /minTammy Nigel 105-4087Ygpvfa-Ewcez[address] [place] [address] 07-18-2024 11:52-0452OaX5% (BldA) [Mass fraction]98 %Paris Nigel 209-3654Dfcprl-Ftgaz[address] [place] [address] 07-18-2024 11:52-0500Systolic blood oazedkxa827 mm[Hg]Paris Nigel [phone]-Slyas[address] 07-11-2024 11:15-0500Blood Pressure LocationTammy Nigel 528-3397Zcvxlw-Qqhhu[address] [place] [address] 07-11-2024 11:15-0500Body bmfgvxhyasv42.52 [degF]Paris Rust 630-9012Vqlffr-Wshpt[address] [place] [address] 07-11-2024 11:15-0500Diastolic blood fbpfefje86 mm[Hg]Paris Ruts [phone]-Hieth[address] [place] [address] 07-11-2024 11:15-0500Heart rate92 /minTammy Nigel [phone]-Tanez[address] [place] [address] 07-11-2024 11:15-0500Respiratory rate18 /minTammy Nigel [phone]-Fvqkx[address] [place] [address] 07-11-2024 11:15-0313PqN5% (BldA) [Mass fraction]99 %Paris Rust [phone]-Yrmav[address] [place] [address] 07-11-2024 11:15-0500Systolic blood aysfzazf514 mm[Hg]Paris Rust 533-1994Fxeqag-Zdmrh[address] [place] [address] 06-05-2024 12:57-0500Blood Pressure LocationThniles David [facility]12-03-2024 12:57-0500 Diastolic blood mm[Hg]Rick Hernandez [facility]12-03-2024 12:57-0500Heart rate90 /minThomas David [facility]12-03-2024 12:57-0500 Respiratory rate16 /minThomas David [facility]12-03-2024 12:57-1041JqE8% (BldA) [Mass fraction]96 %Rick Hernandez [facility]12-03-2024 12:57-0500 Systolic blood efdjgaoz469 mm[Hg]Rick Hernandez [facility]08-21-2024 13:08-0400Blood Pressure LocationTammy Nigel [phone]-AjfqiJoint [facility] 02-22-2024 13:08-0400Body dbuxtnkupyq64.88 [degF]Paris Rebolledoant 208-1870Evwsfm-HkrrlJoint [facility] 02-22-2024 13:08-0400Diastolic blood yceyokeb31 mm[Hg]Paris Nigel [phone]-QkvifJoint [facility] 02-22-2024 13:08-0400Heart rate63 /minTammy Nigel [phone]-VpsxhJoint [facility] 02-22-2024 13:08-0400Respiratory rate18 /minTammy Nigel 342-5647Pbggdu-NjomaJoint [facility] 02-22-2024 13:08-8332UnM6% (BldA) [Mass fraction]99 %Paris Nigel [phone]-WfahyJoint [facility] 02-22-2024 13:08-0400Systolic blood cifzucxa971 mm[Hg]Paris Nigel 523-0811Ggetca-WqcmxJoint [facility] 12-23-2023 13:25-0400Diastolic blood qpplafby25 mm[Hg]Walker Reedmini [facility]06-21-2024 13:25-0400Heart rate78 /minMuhammad Sarmini [facility]06-21-2024 13:25-0400Mean blood bzzmuhij411 mm[Hg]Cardoso Sarmini [facility]06-21-2024 13:25-0400 Respiratory rate24 /minMuhammad Sarmini [facility]06-21-2024 13:25-2652TfK2% (BldA) [Mass fraction]98 %Cardoso Sarmini [address] [place], [place] 5066006-21-2024 13:25-0400 Systolic blood xobcsvhd302 mm[Hg]Cardoso Sarmini [address] [place], [place] 5066006-21-2024 13:15-0400 Diastolic blood vgqxpgfy81 mm[Hg]Cardoso Sarmini [address] [place], [place] 5066006-21-2024 13:15-0400Heart rate69 /minMuhammad Sarmini [address] [place], [place] 5066006-21-2024 13:15-0400Mean blood sgettacm741 mm[Hg]Cardoso Sarmini [facility]06-21-2024 13:15-0400 Respiratory rate17 /minMuhammad Sarmini [facility]06-21-2024 13:15-0172UuV8% (BldA) [Mass fraction]99 %Cardoso Sarmini [address] [place], [place] 5066006-21-2024 13:15-0400 Systolic blood fvegzmlt730 mm[Hg]Cardoso Sarmini [address] [place], [place] 5066006-21-2024 13:10-0400 Diastolic blood kkelmbsk89 mm[Hg]Cardoso Sarmini [address] [place], [place] 5066006-21-2024 13:10-0400Heart rate85 /minMuhammad Sarmini [facility]06-21-2024 13:10-0400Mean blood talrjpmu182 mm[Hg]Cardoso Sarmini [facility]06-21-2024 13:10-0400 Respiratory rate15 /minMuhammad Sarmini [facility]06-21-2024 13:10-2819GhR1% (BldA) [Mass fraction]99 %Cardoso Sarmini [facility]06-21-2024 13:10-0400 Systolic blood mm[Hg]Cardoso Sarmini [facility]06-21-2024 13:00-0400Body ezirmezfrmz49.7 [degF]Cardoso Sarmini [facility]06-21-2024 10:45-0400Blood Pressure LocationMuhammad Sarmini [facility]06-21-2024 10:45-0400Body ptfguuiokqf06.88 [degF]Cardoso Sarmini [facility]06-04-2024 14:51-0400Blood Pressure LocationRyan Adam [facility]06-04-2024 14:51-0400 Diastolic blood rxrhcioq15 mm[Hg]Alirio Ramirez [facility]06-04-2024 14:51-0400Heart rate86 /minRyan Christofferson [facility]06-04-2024 14:51-6667CcY9% (BldA) [Mass fraction]94 %Alirio aRmirez [facility]06-04-2024 14:51-0400 Systolic blood qhbjdbgi049 mm[Hg]Alirio Pugasilvana [facility]05-24-2024 14:30-0400Blood Pressure LocationTammandre Rust [phone]-HzvidJoint [facility] 11-25-2023 14:30-0400Body fbgcermlwti41.8 [degF]Paris Rust 006-6554Wljmru-LjcgcJoint [facility] 11-25-2023 14:30-0400Diastolic blood mm[Hg]Paris Rebolledoant [phone]-GmjthJoint [facility] 11-25-2023 14:30-0400Heart rate89 /minTammy Nigel 386-1985Ngcffz-CiadmJoint [facility] District [facility] Hospital 11-25-2023 14:30-0400Respiratory rate22 /minTammy Nigel [phone]-UvyksJoint [facility] District [facility] Hospital 11-25-2023 14:30-0238AaG7% (BldA) [Mass fraction]98 %Paris Rebolledoant 302-9988Djdkgy-MzlyuJoint [facility] District [facility] Hospital 11-25-2023 14:30-0400Systolic blood leoefcjj572 mm[Hg]Paris Rebolledoant [phone]-NedtjJoint [facility] District [facility] Hospital 11-02-2023 10:06-0400Blood Pressure LocationMuhammad Sarmini [phone]-SmaglS[facility]tering [facility]05-01-2024 10:06-0400Diastolic blood alcsnwrw66 mm[Hg]Cardoso Sarmini [phone]-HbnxpSheltering Arms Hospital05-01-2024 10:06-0400Heart rate78 /minMuhammad Sarmini [phone]-ClhdnSheltering Arms Hospital05-01-2024 10:06-0400Respiratory rate18 /minMujackd Derekmini 552-5315Tpiphj-KdwfwSheltering Arms Hospital05-01-2024 10:06-0400Systolic blood gorhozlc065 mm[Hg]Cardoso Derekmini [phone]-DjysfSheltering Arms Hospital04-24-2024 13:12-0400Blood Pressure LocationTammy Nigel [phone]-QxpgiJoint [facility] 10-26-2023 13:12-0400Diastolic blood yngrjbdm69 mm[Hg]Paris Nigel [phone]-Gjqtd[address] [place] [address] 10-26-2023 13:12-0400Heart rate77 /minTammy Nigel [phone]-Vlfih[address] [place] [address] 10-26-2023 13:12-0400Respiratory rate16 /minTammy Nigel [phone]-KuynvJoint Township District [facility] Hospital 10-26-2023 13:12-5828HxI2% (BldA) [Mass fraction]99 %Paris Nigel [phone]-Mcfvh[address] [place] [address] 10-26-2023 13:12-0400Systolic blood hhssuszp417 mm[Hg]Paris Nigel 519-9369Gvqsge-QhgijJoint [facility] 10-25-2023 14:56-0400Blood Pressure LocationRydaniele Ramirez [facility]04-23-2024 14:56-0400 Diastolic blood kzbkrbii52 mm[Hg]Alirio Ramirez [facility]04-23-2024 14:56-0400Heart rate96 /minAlirio Mosquedaerson [facility]04-23-2024 14:56-6722DzL5% (BldA) [Mass fraction]67 %Aliroi Adam [facility]04-23-2024 14:56-0400 Systolic blood llehnevd078 mm[Hg]Alirio Adam [facility]04-09-2024 17:33-0400 Diastolic blood yvbalson77 mm[Hg]Parisross Rebolledoant [phone]-Cptph[address] [place] [address] 10-11-2023 17:33-0400Mean blood yjqqumzl412 mm[Hg]Paris Nigel [phone]-Iurbj[address] [place] [address] 10-11-2023 17:33-0400Systolic blood jcrdyxtd165 mm[Hg]Paris Nigel [phone]-Uoeza[address] [place] [address] 10-11-2023 14:21-0400Blood Pressure LocationTammy Nigel [phone]-DncqfJoint [facility] 10-11-2023 14:21-0400Body gpngcpohjht31.6 [degF]Paris Nigel [phone]-EwahhJoint [facility] 10-11-2023 14:21-0400Diastolic blood jinicisv86 mm[Hg]Paris Nigel [phone]-PbjzbJoint [facility] 10-11-2023 14:21-0400Heart rate65 /minTammy Nigel [phone]-JvnrzJoint [facility] 10-11-2023 14:21-0400Respiratory rate20 /minTammy Nigel [phone]-RgzosJoint [facility] 10-11-2023 14:21-3486VwC1% (BldA) [Mass fraction]95 %Paris Nigel [phone]-Zoges[address] [place] [address] 10-11-2023 14:21-0400Systolic blood odmqwbpb020 mm[Hg]Paris Nigel [phone]-Wvbjw[address] [place] [address] 08-10-2023 14:19-0500Blood Pressure LocationTammandre Nigel 026-5667Dsfrnq-Iafny[address] [place] [address] 08-10-2023 14:19-0500Body wweobjsnaks88.88 [degF]Paris Nigel 654-6543Ieojew-Wfqil[address] [place] [address] 08-10-2023 14:19-0500Diastolic blood ktjamloj06 mm[Hg]Paris Nigel 598-1602Vwyngb-Goqbl[address] [place] [address] 08-10-2023 14:19-0500Heart rate90 /minTammy Nigel 045-9974Gvwmlg-Muygj[address] [place] [address] 08-10-2023 14:19-0500Respiratory rate20 /minTammy Nigel 426-6724Aieymw-Aenoe[address] [place] [address] 08-10-2023 14:19-9177YrK2% (BldA) [Mass fraction]95 %Paris Nigel 739-5416Gndqgf-Gtbdi[address] [place] [address] 08-10-2023 14:19-0500Systolic blood qgqkumtv370 mm[Hg]Paris Nigel 190-7815Bqrohg-Izlos[address] [place] [address] 05-09-2023 08:04-0500Blood Pressure LocationAnsley Carrero 801-8711Qcxken-Cnbbn[address] [place] [address] 05-09-2023 08:04-0500Body wxkmaozudhk03.24 [degF]Ansley Carrero 170-3617Awchkh-Mergz[address] [place] [address] 05-09-2023 08:04-0500Diastolic blood flcjidfp16 mm[Hg]Ansley Howardzier 590-1632Nqsplr-Pektf[address] [place] [address] 05-09-2023 08:04-0500Heart rate77 /minEjuanakeisha HowardCarrero 983-3511Syglpv-Ysjwd[address] [place] [address] 05-09-2023 08:04-0500Respiratory rate18 /minEgogo Carrero 335-5777Llhpog-Plrik[address] [place] [address] 05-09-2023 08:04-5147TlB0% (BldA) [Mass fraction]96 %Ansleykeisha HowardCarrero 653-7791Vjansy-Rgone[address] [place] [address] 05-09-2023 08:04-0500Systolic blood zzqidoxg442 mm[Hg]Ansleykeisha HowardCarrero 430-0630Gattpf-Xflot[address] [place] [address] 04-26-2023 10:59-0400Blood Pressure LocationTammy Nigel 530-7919Xsqfwe-Dxyyh[address] [place] [address] 04-26-2023 10:59-0400Body xwwbgiszmkz91.6 [degF]Paris Rebolledoant 756-4078Tsnqfj-Ginse[address] [place] [address] 04-26-2023 10:59-0400Diastolic blood frkluzfa41 mm[Hg]Paris Nigel 234-3078Errjkx-Zcbyh[address] [place] [address] 04-26-2023 10:59-0400Heart rate78 /minTammy Nigel 829-6793Rvhryv-Guezs[address] [place] [address] 04-26-2023 10:59-0400Respiratory rate18 /minTammy Nigel 715-8509Usfqrf-Xrjsj[address] [place] [address] 04-26-2023 10:59-7112QuG1% (BldA) [Mass fraction]98 %Paris Nigel 098-5698Pkkybg-Tzhjw[address] [place] [address] 04-26-2023 10:59-0400Systolic blood mm[Hg]Paris Rust 772-0988Lhnrzq-Omyfj[address] [place] [address] 03-18-2023 11:51-0400Blood Pressure LocationTammy Nigel 314-8975Lexfbc-Wngud[address] [place] [address] 03-18-2023 11:51-0400Body fygtvgbfkri48.7 [degF]Paris Rust 266-8381Odhqfi-Vzpdk[address] [place] [address] 03-18-2023 11:51-0400Diastolic blood nfkqkuzk88 mm[Hg]Paris Rust 353-9329Zhjxpx-Cwapn[address] [place] [address] 03-18-2023 11:51-0400Heart rate78 /minTammy Nigel 736-6591Omdhay-Svzrw[address] [place] [address] 03-18-2023 11:51-0400Respiratory rate16 /minTammy Nigel 601-4442Rcqefx-Xyzfu[address] [place] [address] 03-18-2023 11:51-5542AhN3% (BldA) [Mass fraction]94 %Paris Rust 315-2242Vguvtp-Almgw[address] [place] [address] 03-18-2023 11:51-0400Systolic blood xibhyhfc958 mm[Hg]Paris Rust 391-4539Quzxzj-Cpbkt[address] [place] [address] 10-15-2022 05:30-0400Diastolic blood qlquybhx43 mm[Hg]Demetra Cruz MD Work Phone: [employer] [facility]ITALFDHWMA42-71-1638 05:30-0400Heart rate98 /Benny Cruz MD Work Phone: [employer] [facility]ITALMJRETD86-45-3397 05:30-0400 Respiratory rate21 /minDemetra Cruz MD Work Phone: [employer] [facility]PITALBTCJII12-05-2026 05:30-0400Systolic blood pgbmlayx774 mm[Hg]Demetra Cruz MD Work Phone: [facility] HOSPITALMedopad [facility] HOSPITALWAPALM19-65-0024 05:15-2565PfU0% (BldA) [Mass fraction]89 %Demetra Cruz MD Work Phone: [facility]04-13-2023 21:50-0400Body ccgezb814.2 cmDemetra Cruz MD Work Phone: [facility]04-13-2023 21:50-0400Body mass index (BMI) [Ratio]51.22 kg/w2BykzhnDemetra Cruz MD Work Phone: [facility]04-13-2023 21:50-0400Body tfsmoqnalam24.1 [degF]Demetra Cruz MD Work Phone: [employer] [facility]04-13-2023 21:50-0400Body .33 kgDemetra Cruz MD Work Phone: [employer] [facility]04-12-2023 08:55-0400Blood Pressure LocationCarmen Haley [facility]04-12-2023 08:55-0400 Diastolic blood gnzeuypz11 mm[Hg]Carmen Haley [facility]04-12-2023 08:55-0400Heart rate79 /minCarmen Haley [facility]04-12-2023 08:55-7839HoE9% (BldA) [Mass fraction]93 %Carmen Haley [facility]04-12-2023 08:55-0400 Systolic blood idsexjfi555 mm[Hg]Carmen Haley [facility]03-29-2023 11:33-0400Blood Pressure LocationCarmen Haley [address] [place], [place] [address]03-29-2023 11:33-0400 Diastolic blood zqnmviys45 mm[Hg]Carmen Haley [facility]03-29-2023 11:33-0400Heart rate90 /minCarmen Haley [facility]03-29-2023 11:33-6774TtM2% (BldA) [Mass fraction]93 %Carmen Haley [facility]03-29-2023 11:33-0400 Systolic blood obdezjqk617 mm[Hg]Carmen Haley [address] [place], [place] 0408303-24-2023 14:40-0400Blood Pressure LocationLupsi Atmosferiq 543-1441Exxebj-Zhgor[address] [place] [address] 09-24-2022 14:40-0400Body kzzqpwrdyfc69.16 [degF]Lupis EFREN 401-0841Pyoick-Bfyet[address] [place] [address] 09-24-2022 14:40-0400Diastolic blood lljktosf94 mm[Hg]Lupis Atmosferiq 881-0195Ujgozx-Mquyl[address] [place] [address] 09-24-2022 14:40-0400Heart rate83 /Arden SCHWARTZ 179-3978Kqllqo-Zwesb[address] [place] [address] 09-24-2022 14:40-0400Respiratory rate24 /Arden SCHWARTZ 807-0135Asustf-Dphno[address] [place] [address] 09-24-2022 14:40-1778DyN6% (BldA) [Mass fraction]92 %Lupis Atmosferiq 405-1470Gmvrjp-Kzziv[address] [place] [address] 09-24-2022 14:40-0400Systolic blood ynwrkcwq306 mm[Hg]Lupis Atmosferiq 119-2299Nrfajw-Qvmts[address] [place] [address] 09-22-2022 08:08-0400Blood Pressure LocationCarmen Haley [facility]03-22-2023 08:08-0400 Diastolic blood tkxkklnu84 mm[Hg]Carmen Haley [facility]03-22-2023 08:08-0400Heart rate72 /minCarmen Haley [facility]03-22-2023 08:08-7058QcH8% (BldA) [Mass fraction]94 %Carmen Haley [facility]03-22-2023 08:08-0400 Systolic blood pvugiwsa522 mm[Hg]Carmen Haley [facility]03-14-2023 11:55-0400Heart rate79 /minDO Joo Rachel Work Phone: [facility]03-14-2023 11:55-0400 Respiratory rate20 /minDO Joo Rachel Work Phone: [facility]03-14-2023 08:41-0400 SaO2% (BldA) [Mass fraction]95 %DO Joo Rachel Work Phone: [facility]03-14-2023 07:36-0400 Diastolic blood mm[Hg]DO Joo Rachel Work Phone: [facility]03-14-2023 07:36-0400 Systolic blood thpduxlf113 mm[Hg]DO Joo Rachel Work Phone: [facility]03-14-2023 05:21-0400 Body jwhpom720.9 kgDO Joo Rachel Work Phone: [facility]03-14-2023 03:46-0400 Body jqdsyzgcbjc28.1 [degF]DO Joo Rachel Work Phone: [facility]03-13-2023 15:35-0400 Body wxvlun634.02 cmDO Joo Raoms Work Phone: [facility]03-11-2023 20:33-0500 Inhaled oxygen flow rate2 L/minDO Joo Ramos Work Phone: [facility]03-10-2023 14:03-0500 Diastolic blood mm[Hg][facility]03-10-2023 14:03-0500Heart rate86 /[facility]03-10-2023 14:03-0500Inhaled oxygen flow rate2 L/[facility] 09-10-2022 14:03-0500Respiratory rate20 /[facility] 09-10-2022 14:03-4401TpY1% (BldA) [Mass fraction]98 %[facility]03-10-2023 14:03-0500Systolic blood djzwyjdy813 mm[Hg][facility]03-10-2023 11:11-0500Body ztssri005.02 cmK[facility]03-10-2023 11:11-0500Body kaawutuwovg22.6 [degF][facility]03-10-2023 11:11-0500Body befvfy288 kgK[facility]03-06-2023 11:23-0500Blood Pressure LocationLupis SCHWARTZ 896-6402Lidbgc-JptgwJoint [facility] 09-06-2022 11:23-0500Body txeffmofbmi75.16 [degF]Lupis SCHWARTZ 491-6207Fcospt-UqmxbJoint [facility] 09-06-2022 11:23-0500Diastolic blood pwhrrhyn93 mm[Hg]Lupis SCHWARTZ 388-8488Kvodpz-KjpwkJoint [facility] 09-06-2022 11:23-0500Heart rate83 /Arden SCHWARTZ 422-0170Vswfca-BhpfgJoint [facility] 09-06-2022 11:23-0500Respiratory rate28 /minLupis EFREN 091-3684Lixvmz-Blxdu[address] [place] [address] 09-06-2022 11:23-4065ZzU8% (BldA) [Mass fraction]94 %Lupis Atmosferiq 616-3820Ayzifo-Fplpm[address] [place] [address] 09-06-2022 11:23-0500Systolic blood ibvltrwu850 mm[Hg]Lupis SCHWARTZ 362-5409Fjneae-Sxxsr[address] [place] [address] 08-20-2022 15:03-0500Diastolic blood eproduze09 mm[Hg]Lupis Atmosferiq 098-0809Wulgfs-Btnzd[address] [place] [address] 08-20-2022 15:03-0500Mean blood prisxnaz358 mm[Hg]Lupis Atmosferiq 620-8964Tjpxsb-Teebp[address] [place] [address] 08-20-2022 15:03-0500Systolic blood zsmpqlin262 mm[Hg]Lupis Atmosferiq 477-9162Ijscrr-Seivq[address] [place] [address] 08-20-2022 13:59-0500Blood Pressure LocationLupis Atmosferiq 451-3053Zjeysp-Tsivp[address] [place] [address] 08-20-2022 13:59-0500Body oqchtslwaut21.98 [degF]Lupis Atmosferiq 818-6646Zcigrz-Rgxvd[address] [place] [address] [place] 08-20-2022 13:59-0500Diastolic blood fpavkixf334 mm[Hg]Lupis Atmosferiq 258-3764Eyajgx-Bydsr[address] [place] [address] 08-20-2022 13:59-0500Heart rate77 /minLupis EFREN 515-0537Wztyzf-Rrdup[address] [place] [address] 08-20-2022 13:59-0500Respiratory rate28 /minLupis EFREN 434-1587Zmyaup-Wcqir[address] [place] [address] 08-20-2022 13:59-0229EdO0% (BldA) [Mass fraction]97 %Lupis EFREN 302-7730Vngqtt-BjkubJoint [facility] 08-20-2022 13:59-0500Systolic blood mm[Hg]Lupis EFREN 243-9251Vulcgp-IkhtrJoint [facility] 12-30-2021 11:01-0400Blood Pressure LocationParish RUBIO 802-8379Tbwiwp-NoqjvGal[facility] Hospital [place] 06-29-2022 11:01-0400Body abzdfrqowvz29.42 [degF]Parish RUBIO 640-6055Yfilvr-CedsvGalion Community Hospital Doc 06-29-2022 11:01-0400Diastolic blood mm[Hg] Parish RUBIO 280-2647Cgzwic-YkurfGalion Community Hospital [place] 06-29-2022 11:01-0400Heart rate73 /minSoniadaron RUBIO 443-9794Wcwvgt-ZzproCity Hospitalard 06-29-2022 11:01-1549OlL3% (BldA) [Mass fraction]96 % Parish RUBIO 780-8356Plphmy-VqjdwGalion Community Hospital [place] 06-29-2022 11:01-0400Systolic blood ygbtzpqz992 mm[Hg] Parish RUBIO 731-2641Qybhxk-TaaqaGalion Community Hospital Doc 01-06-2022 08:54-0500Body acmtee671.6 cmMwhz Education Work Phone: [facility] CampusHmfgdd36-66-9401 08:54-0500Body mass index (BMI) [Ratio]55.17 kg/m2Mwhz Education Work Phone: [facility] Srqtqw22-15-2862 08:54-0500Body crrjat125.04 kg Mwhz Education Work Phone: [facility] HospitalProlebrityBdhtgr32-01-8998 09:46-0500Body nxxyfk809.6 cm Mwh[employer] Work Phone: [facility] HospitalProlebrityKsfjrx07-01-7241 09:46-0500Body mass index (BMI) [Ratio]56.27 kg/m2Mwhz Education Work Phone: [facility] HospitalProlebrityZczajc88-34-9905 09:46-0500Body tolmpf066.12 kg Mwhz Education Work Phone: [facility] HospitalProlebrityIavgvb35-51-0853 12:10-0400BP Mfghwvwgd81 mm[Hg] [facility], NI29-66-3359 12:10-0400BP Manmvpwl676 mm[Hg][facility], HJ58-11-7464 12:10-0400Pulse (Heart Rate)62 /[facility], BT49-25-9948 12:10-0400Pulse Mssfcpjr25 %[facility], QB93-39-8223 12:10-0400Respiratory Rate18 /[facility], UB01-15-8588 11:39-0400Body Lmdukzsqrrs45.4 [degF][facility], BX92-32-0313 08:43-0400BMI (Body Mass Index)51.84 kg/m2[facility], TH36-06-8940 08:43-0400Body .14 kg [facility], DT79-58-0541 08:43-7553Rwggqe399.2 [facility], OD54-93-1370 13:09-0500Pulse Pasrisys40 %[facility] [place] Encounters Encounter DateEncounter TypeCare ProviderFacilityStart: 04-22-2025 End: 20-64-8530vamukdmualBfgjuak Vytautas Giedraitis MDFacility:PM [place] Start: 04-09-2025 End: 22-50-3738rqadyqsgstTvkkh L. BryantFacility:FM WillardStart: 04-09-2025 End: 79-69-9598Ujqsfhj encounter procedureTagregor Rust 095-5864Omiiei-IbzqlSamaritan Hospital [facility] Doc Start: 04-03-2025 End: 60-66-9128mgozizhzqkNysax L Bryant MANAGER OF RADIOLOGY-C Work Phone: [facility] Work Phone: Start: 04-03-2025 End: 18-12-4976Hbqzlmh encounter procedureEric N [facility] Work Phone: start: 03-12-2025 End: 19-23-2578snbvsdkodzKJCT NONEFacility:FTMCStart: 03-05-2025 End: 77-35-8250ameipqvywcXatnl L. BryantFacility:FM WillardStart: 03-05-2025 End: 94-93-5469Jpltlft encounter procedureTagregor Rust 722-7963Vdrrbb-LjhckOhiohealth Grady [facility] Medicine Doc Start: 02-11-2025 End: 25-43-1277pjmxwisrfnXnbzdih Vytautas Giedraitis MDFacility:PM [facility]i Start: 02-04-2025 End: 00-58-4610rntsqkyzpdHbakh L. BryantFacility:FM WillardStart: 02-04-2025 End: 74-59-9470Xtyjbpz encounter procedureTagregor Rust 643-5964Jxbqtj-DiyrgOhiohealth Grady Memorial Hospital Medicine Doc Start: 01-29-2025 End: 75-90-8083qowcenpdbpBPEE NONEFacility:FTMCStart: 01-24-2025 End: 00-81-4008Zuhtunshc department patient visitOneal Newman Facility:FTMCStart: 01-21-2025 End: 96-83-0388zirmjpkgfeZrkrmrdCalvin Palmer MDFacility:PM [facility]i Start: 01-07-2025 End: 33-09-1647cfiugnngyeYpjaj L. BryantFacility:FTMCStart: 01-07-2025 End: 18-95-9551Fomzbcp encounter procedureTagregor Rust [facility] Start: 01-02-2025 End: 06-65-8128Mep Drop offParis Rust [facility] Start: 01-02-2025 End: 24-97-0577yfiectnpipHdhtq L. BryantFacility: WillardStart: 01-02-2025 End: 32-65-7614Uoubtzs encounter procedureTagregor Rust 513-3001Yqfjms-AassdSamaritan Hospital Family Medicine Doc Start: 01-01-2025 End: 61-52-2069whhregxdplPrctiw A SteinFacility:FTMCStart: 01-01-2025 End: 19-12-0255Avrhrfw encounter procedureThomas Leonela Hernandez [facility] Start: 12-31-2024 End: 55-06-8072crdbrrffwmZkrnu L. BryantFacility:CD:[id number]: 12-27-2024 End: 02-68-0222Nsfjyqdlwd and management of inpatientLawrence Erich Kaur Facility:FTMCStart: 18-61-5970Rajigkdds department patient visitJldanae Remydonald Facility:FTMCStart: 12-27-2024 End: 58-00-8471Evnqtqtfnb and management of inpatientLawrence Erich Virkermoshe III [facility] Start: 12-19-2024 End: 14-58-6141vxicdhnrwzYnfyg L. BryantFacility:FTMCStart: 12-19-2024 End: 43-27-4766Futiuoy encounter procedureTagregor Rust [facility] Start: 12-19-2024 End: 78-45-5827Qmt Drop offTagregor Rust [facility] Start: 12-19-2024 End: 06-80-9100btqujbxxfpThtfc L. BryantFacility:FM WillardStart: 12-19-2024 End: 07-87-0663Iowrtst encounter procedureTagregor Rust 338-8177Tmivcs-TekanSamaritan Hospital Family Medicine Doc Start: 11-27-2024 End: 32-38-6750gwdtvkjwnfYtprd L. BryantFacility:FM WillardStart: 11-27-2024 End: 50-07-7345Tyxkrnp encounter procedureTagregor Rust [phone]-QvpncSamaritan Hospital Family Medicine Doc Start: 11-07-2024 End: 32-13-9516Yprhta outpatient new 60 minutesS Dylon Dean MD Work Phone: [facility] Bariatric ClinicComment on above: Gastroesophageal reflux disease, unspecified whether esophagitis present (Primary Dx); Morbid obesity with BMI of 50.0-59.9, adult; BRENDA (obstructive sleep apnea); Type 2 diabetes mellitus without complication, without long-term current use of insulinStart: 70-88-7310atrligfbihX DYLON DAENHob[facility] Start: 10-29-2024 End: 98-43-6300ejsidnacahYljenjd Vytautas Giedraitis MDFacility:PM Leni Start: 09-12-2024 End: 98-86-3678Yni Drop offTagregor Rust [facility] Start: 09-12-2024 End: 12-10-9613mlrvgtazfvWehzm L. BryantFacility:FM WillardStart: 08-29-2024 End: 31-07-2533llhhzdjjxxVpick L. BryantFacility:FM WillardStart: 08-29-2024 End: 40-21-9361Osaczne encounter procedureTagregor Rust 761-7212Tiadqj-BriyzGalion Community Hospital Doc Start: 07-23-2024 End: 87-76-5358srfqzfcrdeKjqtqbe Vytautas Giedraitis MDFacility:[facility] [place] Start: 07-18-2024 End: 20-78-5739citeelslbbJktcy L. BryantFacility:FM WillardStart: 07-18-2024 End: 45-21-3833Bbqyrpp encounter procedureTagregor Rust 905-4737Qvdtfj-BibxtSamaritan Hospital Family Medicine Doc Start: 07-13-2024 End: 34-98-0402Vcg Drop offTagregor Rust [facility] Start: 07-13-2024 End: 33-59-7229nyzoirrzjjELL, APRN-IRVING RustFacility:FTMCStart: 07-13-2024 End: 50-34-7734Ntuwsvt encounter procedureTagregor Rust 162-1987Queshy-BzrwiOhiohealth Grady Memorial Hospital Medicine Doc Start: 07-11-2024 End: 38-86-0849eyrrthplbbKcjzf L. BryantFacility: ardStart: 07-11-2024 End: 74-75-6519Fglwrir encounter procedureParis Rust 623-7959Ktbotp-NfwnvSamaritan Hospital Family Medicine [place] Start: 06-05-2024 End: 29-01-5945vovwjjiqvgCEArtem HernandezFacility:FTMCStart: 06-05-2024 End: 81-15-9246Tsechxu encounter procedureRick Hernandez [facility] Start: 05-21-2024 End: 04-80-2614kmbevinevfZjmfhpxRj Palmer MDFacility:[facility] [place] Start: 02-22-2024 End: 59-32-3246obwbvktukoKTY, HEEL COVER SOFTENER-DRAPERY HEMMER AUTOMATIC Paris RustFacility: ardStart: 02-22-2024 End: 97-13-8391Bdiwnji encounter procedureTagregor Rust 500-7438Bkkacc-NwdhtSamaritan Hospital Family Medicine Doc Start: 02-10-2024 End: 22-01-7779Edt-admission assessmentMuhammad Talal Sarmini [facility] Start: 01-27-2024 End: 88-80-1467bwlikejcfnTgmtxphr Talal SarminiFacility:[facility] DHStart: 01-27-2024 End: 38-03-0384Qiceutu encounter procedureMuhammad Talal Sarmini 153-2502Eadcqq-KtnarSamaritan Hospital [facility] Start: 12-23-2023 End: 28-46-7926whxtfntdtlQevqxgtt Talal SarminiFacility:FTMCStart: 12-23-2023 End: 68-88-3328Yfbvmij encounter procedureMuhammad Talal Sarmini [facility] Start: 12-19-2023 End: 99-70-6400riydhbuerlEQWCV J MATHEWSCleveland Clinic Hillcrest Hospitaltart: 12-06-2023 End: 28-09-2394ibjzyqeuhaBgvmBreanna RamirezFacility:FTMCStart: 12-06-2023 End: 17-74-9457Zedjrdm encounter Albino Ramirez [facility] Start: 11-25-2023 End: 52-99-4467tpivbvggdmAGW, HEEL COVER SOFTENER-DRAPERY HEMMER AUTOMATIC Paris RustFacility: ardStart: 11-25-2023 End: 86-60-8089Fqkvgtc encounter Tracey Rust 502-7215Tiepin-PulccGalion Community Hospital [place] Start: 11-17-2023 End: 80-74-2226jnzigdamhuKDBHBreanna LunaMansfield Hospital HospitalStart: 39-64-6322gkaoulmkcgERL, HEEL COVER SOFTENER-DRAPERY HEMMER AUTOMATIC Paris RustFacility: WillardStart: 11-08-2023 End: 64-71-7188riifdshawzYwrhBreanna RamirezFacility:[facility], PHOENIXtart: 11-08-2023 End: 10-26-5145Unbmhzr encounter Albino Ramirez [facility] Start: 11-02-2023 End: 46-86-6015kxmaskxqgyCuaxmkrp Talal SarminiFacility:[facility] Centertart: 11-02-2023 End: 67-21-8270Iuczskq encounter procedureMuhammad Talal Sarmini 708-5695Lgptop-GwjrjSamaritan Hospital Digestive Health Start: 10-26-2023 End: 50-22-1040krytsvuwiaPDPSRINIVSA FloydFacility: ardStart: 10-26-2023 End: 62-34-9080Owcpmfi encounter procedureParis Rust 258-8845Toxmag-RlzcpSamaritan Hospital Family Medicine Doc Start: 10-25-2023 End: 56-83-2054ekpealghgyIGDO NONEFacility:FTMCStart: 10-25-2023 End: 77-80-7395Ljdfsfe encounter Albino Ramirez [facility] Start: 10-11-2023 End: 47-65-7935npmddlrwbpUGTSRINIVAS FloydFacility: ardStart: 10-11-2023 End: 27-44-9490Aniaxgh encounter Tracey Rust 199-7174Nrecxf-WimpeSamaritan Hospital Family Medicine Doc Start: 10-06-2023 End: 75-61-9520Xgasnsliz department patient visitTAMMAndre Yarbrough HospitalStart: 08-30-2023 End: 20-53-0125llvendtsanXCEFSAZUL Yarbrough HospitalStart: 08-24-2023 End: 00-55-8684tdfltwpwebOATAU BRYANTMercy Tiffin HospitalStart: 08-10-2023 End: 76-57-7556nrveebpyzsUHIJZ BRYANTMercy Willard HospitalStart: 08-10-2023 End: 47-86-8899Aqauillvzw hospital visit by physicianMwh Additional Xray At Mw MWHZ LaboratoryComment on above:Right hip painStart: 08-10-2023 End: 42-00-7298Asibtvy encounter procedureTagregor Rust [phone]-MysgrJoint [facility] District [facility] Hospital Start: 07-21-2023 End: 64-63-0587Xzqsudiyfa hospital visit by Karen Shea Physical TherapyStart: 07-20-2023 End: 40-99-6435Ohidtafdsr hospital visit by Finesse YOUNG Physical TherapyStart: 07-14-2023 End: 02-88-9137Bekzrcswho hospital visit by Karen Shea Physical TherapyStart: 07-11-2023 End: 16-29-7036yjudlyjgpkTGMCKettering Health Miamisburgtart: 07-08-2023 End: 88-96-2717Suirhvzfsj hospital visit by Karen Shea Physical TherapyStart: 07-07-2023 End: 64-10-7418lxkcbtpfqwXOSIKettering Health Miamisburgtart: 07-06-2023 End: 88-38-4471Sxhzlfpucf hospital visit by Karen Shea Physical TherapyStart: 93-11-8187ulxcmabkluRRHTMansfield Hospital Start: 06-21-2023 End: 43-33-3097abilfflbmdCOKKKettering Health Miamisburgtart: 05-10-2023 End: 84-55-5592Xte-admission assessmentLele Grijalva [facility] Start: 05-09-2023 End: 85-75-9762Qwuqycz encounter procedureAnsley Carrero [phone]-HxljuJoint [facility] Start: 04-29-2023 End: 13-21-3994Btxqvutkx department patient visitVESChildren's Hospital for Rehabilitationtart: 04-26-2023 End: 18-53-1793Tyzngvq encounter procedureParis Rust [phone]-SogtzCity Hospitalard Start: 03-18-2023 End: 38-20-9574Vcjsxua encounter procedureTagregor Rust [phone]-ZqjvpJoint [facility] District [facility] Hospital Start: 12-01-2022 End: 21-29-1772Ieaeaavuzo hospital visit by physicianKrysten [facility] Vascular LabComment on above:Fatigue, unspecified type; Screening, lipidStart: 11-26-2022 End: 01-20-5857Cspvofi encounter procedureTagregor Rust [phone]-XpmuhJoint Township District Memorial Hospital Start: 44-90-4371csmvggrejaTeebvvdb:17325Khiow: 10-19-2022 End: 73-13-2174JptkzaujxPzbca P. Wiarda [facility] Start: 10-19-2022 End: 33-36-8253Btvyxxewnj hospital visit by physicianKrysten [facility] RadiologyComment on above:Left hand weaknessWeakness of both legsStart: 10-14-2022 End: 23-45-9764Mozomocqv department patient visitDemetra Cruz MD Work Phone: [phone] [place] [address] EDComment on above:Alcohol abuse (Primary Dx)Start: 10-13-2022 End: 24-42-4899Iuyfrqdpui hospital visit by Meir Taylor CNP Work Phone: [facility] LaboratoryStart: 10-13-2022 End: 30-00-4740Izb-admission Adilson Haley [facility] Start: 10-06-2022 End: 96-32-0247Cwd Drop Anamika SCHWARTZ [facility] Start: 10-06-2022 End: 05-38-6564Igtcrui encounter Gurdeep SCHWARTZ [phone]-QjhidOhiohealth [facility]ady [facility] Medicine Doc Start: 09-29-2022 End: 33-41-7028Mcj Drop offCarmen Haley [facility] Start: 09-29-2022 End: 02-07-1594Bnv-admission assessmentCarmen Haley [facility] Start: 09-27-2022 End: 05-21-8689Nqu Drop offParis Rust [facility] Start: 09-27-2022 End: 35-16-0053Oprzrtc encounter Tracey Rust [phone]-FixikOhiohealth Grady [facility] Hospital Medicine [place] Start: 09-24-2022 End: 28-84-1384Onsjuli encounter Gurdeep SCHWARTZ [phone]-SxyesOhiohealth Grady [facility] Hospital Medicine Doc Start: 09-22-2022 End: 93-61-7067Mzfifsm encounter Stefani Haley [facility] Start: 71-46-5484gkohmobyndDvqahzgb:[facility]ITALtart: 09-10-2022 End: 62-85-9142Bcznwduhtu and management of inpatientMease [facility] [facility]: 40-69-1636pzavrvpyuu Facility:[id number]: 09-10-2022 End: 27-67-9615Dwjmpymvzh and management of inpatientBet[facility]da [facility] Work Phone: Start: 09-06-2022 End: 79-18-1769Rft Drop offLupis SCHWARTZ [facility] Start: 09-06-2022 End: 74-29-6686Rjvtkbl encounter Gurdeep SCHWARTZ [phone]-XgxndSamaritan Hospital [facility] Doc Start: 08-27-2022 End: 97-10-5483Neszphumcl [facility] Room Irais Yarbrough MW ECHOComment on above:Hypertension, unspecified type; Bilateral leg edemaStart: 08-20-2022 End: 39-70-1302Pua Drop offLupis SCHWARTZ [facility] Start: 08-20-2022 End: 69-03-8090Hfaemoa encounter Gurdeep SCHWARTZ [phone]-PvowfOhiohealth Grady Memorial Hospital Medicine [place] Start: 12-30-2021 End: 44-55-9167Jqgopna encounter Rolando RUBIO [phone]-[facility]qcGal[facility] Doc Start: 07-13-2021 End: 21-04-2915Gullpkhnpe hospital visit by physicianCAITLYN Gardner RD Work Phone: mwhZ Diet and NutritionComment on above:ArrivedStart: 07-09-2021 End: 63-37-3484Dcoyaexhbj hospital visit by physicianBandar Diabetes Education Work Phone: mwhZ Diabetic EducationStart: 07-02-2021 End: 39-26-8311Tctjklmvdr hospital visit by physicianBandar Diabetes Education Work Phone: [facility] Diabetic EducationStart: 05-21-2021 End: 48-20-3927Rvedgexybi hospital visit by physicianKrysten Additional [facility] RadiologyComment on above:SOB (shortness of breath); Obstructive sleep apnea (adult) (pediatric); Moderate persistent asthma without complicationStart: 05-21-2021 End: 47-05-7407Ttbjqrwuhk hospital [facility] physicianL[facility] Pulmonary Function [facility] PFTComment on above:SOB (shortness of breath); Obstructive sleep apnea syndrome; Moderate persistent asthma without complication; Tobacco abuseStart: 03-17-2020 End: 09-04-4725Mpuvikvdgr hospital visit by Swapna Malik Work Phone: mZ EndoscopyStart: 03-17-2020 End: 00-03-8516Lpkmxhannh hospital visit by physicianadams Covid19 Pat Screening ScheduleSAMARITAN MEDICAL CENTER PRE ADMITComment on above:ArrivedStart: 02-19-2020 End: 92-98-3889Dtdjzbvvwu hospital visit by physicianadams [facility]tras[facility] UltrasoundComment on above:Hypertrophy of uterus; Right lower quadrant painStart: 02-07-2020 End: 46-87-0831Wtokjiyufs hospital visit by physicianadams Cat [facility] CT ScanComment on above:RLQ abdominal painStart: 09-07-2019 End: 28-27-2770Tzxhldzlvf hospital visit by physicianadams Pulmonary Function Rm MWH[facility] PFTComment on above:SOB (shortness of breath)Start: 09-06-2019 End: 97-67-3587Dnyctdjqbm hospital visit by physicianadams Dig Rad 1MWHZ LaboratoryComment on above:Syncope and collapse; Pre-operative clearance; Essential hypertension; Hyperlipidemia, unspecified hyperlipidemia type; Vitamin D deficiency; SOB (shortness of breath); Elevated blood sugarSyncope and collapse; Pre-operative clearance; Essential hypertension; Hyperlipidemia, unspecified hyperlipidemia type; Vitamin D deficiency Procedures DateProcedureProcedure DetailPerforming ClinicianStart: 91-60-0238Mlidatpilzyp polypectomyWalker Phillip Start: 32-51-6931Ithsn hip unilateral with pelvis 2-3 viewsTammy Nigel HEEL COVER SO[employer] - [employer] Work Phone: Start: 36-10-9743Xeadnbxcqtmyy metabolic panelTammy Nigel HEEL COVER SO[employer]ENER [employer] Work Phone: Start: 78-50-5988Nboad panelTammy Nigel HEEL COVER SO[employer]ENER - [employer] Work Phone: Start: 54-60-9767Hlovk albumin quantitativeTammy Nigel HEEL COVER SO[employer]ENER [employer] Work Phone: Start: 19-06-4680Kkf-scan xtr veins complete bilateral studyCarmen Haley DO Work Phone: Start: 10-19-2022 End: 52-22-4012Thzbx spine cervical 4 or 5 Felipe Schwartz MD Work Phone: Start: 16-03-7677Odkc bld gluc mntr dev cleared fda spec home useDemetra Cruz MD Work Phone: Start: 33-80-2643Yldn bld gluc mntr dev cleared fda spec home useDemetra Cruz MD Work Phone: Start: 11-69-8745Wvjmjwbepo exam chest single view Demetra Cruz MD Work Phone: Start: 68-01-3213Snryn of ethanolDemetra Cruz MD Work Phone: Start: 70-59-7817Urwmgpjlkcqfg metabolic panelDemetra Cruz MD Work Phone: Start: 84-92-3257Nkj routine ecg w/least 12 lds w/i&r Demetra Cruz MD Work Phone: Start: 84-35-7356Qjdvtaun kinase totalKaleigh Donnamiller HEEL COVER SO[employer]ENER [employer] Work Phone: Start: 84-23-0337Wwmmeivrnbb Panel (PCR)DO Joo Ramos Work Phone: Start: 01-50-8794Nmcsp chest X-rayStart: 05-21-2021 Radiologic exam chest 2 viewsMulu Dean HEEL COVER SO[employer]ENER [employer] Work Phone: Start: 92-20-1306Aagjijtum therapyEric P Mainorrejilillieileana Work Phone: Start: 56-07-6297OIGLR-19Luis E Jo Work Phone: Start: 51-12-1028AeacwslcxyfQwb WillardStart: 43-65-5057ZbxsttgzuuzLoerb EFREN Start: 31-75-8205Jz pelvic nonobstetric real-time image completeMulu Dean Work Phone: Start: 90-45-2218Fd abdomen & pelvis w/contrast materialMulu Dean Work Phone: Start: 94-35-4229Foofn of urea nitrogen quantitative [facility] Work Phone: Start: 24-50-2244TVSVMNGSV TX INTERMITTENTBilly Back Work Phone: start: 23-29-6178Avpitxppas exam chest 2 viewsGreg S [employer] Work Phone: Start: 58-71-101907 hydroxy includes fractions if performedGreg S [employer] Work Phone: Start: 58-66-8770Pottk of magnesiumGreg S [employer] Work Phone: Start: 22-33-5857Fwxgp of thyroid stimulating hormone tshGreg S [employer] Work Phone: Start: 06-08-9513Mqwub count complete auto&auto difrntl wbcGreg [employer] Work Phone: Start: 88-13-9325Evofmblxbmwxw metabolic panelGreg [employer] Work Phone: Start: 64-87-7837Cvehkfcaje glycosylated e1vDziw [employer] Work Phone: Start: 15-15-3317Vkwij panelJoselito Hsu Work Phone: Start: 83-07-3291LACGSMQ FASTING?Joselito Coco Hsu Work Phone: Arthroplasty of kneeCarmen Haley Eye/lens implant bilatParish RUBIO L foot bunion/reconstructionSoniadaron RUBIO Plan of Treatment DateCare ActivityDetailAuthorStart: 30-40-3334ERG VACCINE (1 - 1-dose 75+ series)RSV VACCINE (1 - 1-dose 75+ series)[facility] Hospitaltart: 04-10-2030 DTaP/Tdap/Td vaccine (3 - Td or Tdap)DTaP/Tdap/Td vaccine (3 - Td or Tdap)[facility] CampusStart: 66-55-8108Omvaxoa vaccinationTETANUSAOhioHealth Grove City Methodist Hospitaltart: 87-45-2697Uokdkzslz for malignant neoplasm of colonSumma Health Akron CampusStart: 11-16-2027 Pneumococcal 0-64 years Vaccine (2 of 2 - PPSV23)Pneumococcal 0-64 years Vaccine (2 of 2 - PPSV23)[facility] CampusStart: 11-07-2024 End: 03-82-8204I99/folate lhzuzS02 & FOLATE Lab Routine Gastroesophageal reflux disease, unspecified whether esophagitis present Morbid obesity with BMI of 50.0-59.9, adult BRENDA (obstructive sleep apnea) Type 2 diabetes mellitus without complication, without long-term current use of insulin Expected: 11/07/2024, Expires: 11/07/2025[facility] HospitalComment on above:Expected: 11/07/2024, Expires: 11/07/2025Start: 11-07-2024 End: 09-58-0541Kggpo metabolic 2000 panel - Serum or PlasmaBASIC METABOLIC PANEL Lab Routine Gastroesophageal reflux disease, unspecified whether esophagitis p resent Morbid obesity with BMI of 50.0-59.9, adult BRENDA (obstructive sleep apnea) Type 2 diabetes mellitus without complication, without long-term current use of insulin Expected: 11/07/2024, Expires:11/07/2025[facility] HospitalComment on above:Expected: 11/07/2024, Expires: 11/07/2025Start: 11-07-2024 End: 22-55-5794XLA,PLATELETSCBC,PLATELETS Lab Routine Gastroesophageal reflux disease, unspecified whether esophagitis present Morbid obesity with BMI of 50.0-59.9, adult BRENDA (obstructive sleep apnea) Type 2 diabetes mellitus without complication, without long-term current use of insulin Expected: 11/07/2024, Expires: 11/07/2025[facility] [place] [facility] HospitalComment on above:Expected: 11/07/2024, Expires: 11/07/2025Start: 11-07-2024 End: 82-54-8043NIMIMBEUIM UPPER ENDOSCOPYDIAGNOSTIC UPPER ENDOSCOPY GI/Bronch Routine Gastroesophageal reflux disease, unspecified whether esophagitis present Expected: 11/07/2024, Expires: 11/07/2025[facility] [place] [facility] HospitalComment on above: Expected: 11/07/2024, Expires: 11/07/2025Start: 11-07-2024 End: 90-91-5581Evebsyzm [Mass/volume] in Serum or PlasmaFERRITIN Lab Routine Gastroesophageal reflux disease, unspecified whether esophagitis present Morbid obesity with BMI of 50.0-59.9, adult BRENDA (obstructive sleep apnea) Type 2 diabetes mellitus without complication, without long-term current use of insulin Expected: 11/07/2024, Expires: 11/07/2025[facility] [place] [facility] HospitalComment on above: Expected: 11/07/2024, Expires: 11/07/2025Start: 11-07-2024 End: 62-79-0878Queujmrmaz A1c/Hemoglobin.total in BloodHEMOGLOBIN A1C Lab Routine Gastroesophageal reflux disease, unspecified whether esophagitis present Morbid obesity with BMI of 50.0-59.9, adult BRENDA (obstructive sleep apnea) Type 2 diabetes mellitus without complication, without long-term current use of insulin Expected: 11/07/2024, Expires: 11/07/2025[facility] [place] [facility] HospitalComment on above:Expected: 11/07/2024, Expires: 11/07/2025Start: 11-07-2024 End: 58-11-5765Qvjftrf function 2000 panel - Serum or PlasmaHEPATIC FUNCTION PANEL Lab Routine Gastroesophageal reflux disease, unspecified whether esophagitispresent Morbid obesity with BMI of 50.0-59.9, adult BRENDA (obstructive sleep apnea) Type 2 diabetes mellitus without complication, without long-term current use of insulin Expected: 11/07/2024, Expires: 11/07/2025[facility] [place] [facility] HospitalComment on above:Expected: 11/07/2024, Expires: 11/07/2025Start: 11-07-2024 End: 82-42-2766CGVJ/IRON BINDING/TRANSFERRINIRON/IRON BINDING/TRANSFERRIN Lab Routine Gastroesophageal reflux disease, unspecified whether esophagitis present Morbid obesity with BMI of 50.0-59.9, adult BRENDA (obstructive sleep apnea) Type 2 diabetes mellitus without complication, without long-term current use of insulin Expected: 11/07/2024, Expires: 11/07/2025[facility] [place] [facility] HospitalComment on above:Expected: 11/07/2024, Expires: 11/07/2025Start: 11-07-2024 End: 78-56-0671IMRDG PANEL W CALCULATED LDLLIPID PANEL W CALCULATED LDL Lab Routine Gastroesophageal reflux disease, unspecified whether esophagitis present Morbid obesity with BMI of 50.0-59.9, adult BRENDA (obstructive sleep apnea) Type 2 diabetes mellitus without complication, without long-term current use of insulin Expected: 11/07/2024, Expires: 11/07/2025[facility] [place] [facility] HospitalComment on above:Expected: 11/07/2024, Expires: 11/07/2025Start: 11-07-2024 End: 20-41-1409Pnzyqndrj [Mass/volume] in Serum or PlasmaMAGNESIUM Lab Routine Gastroesophageal reflux disease, unspecified whether esophagitis present Morbid obesity with BMI of 50.0-59.9, adult BRENDA (obstructive sleep apnea) Type 2 diabetes mellitus without complication, without long-term current use of insulin Expected: 11/07/2024, Expires: 11/07/2025[facility] [place] [facility] HospitalComment on above: Expected: 11/07/2024, Expires: 11/07/2025Start: 11-07-2024 End: 94-00-1180NZFUEJDRX, INORGANICPHOSPHATE, INORGANIC Lab Routine Gastroesophageal reflux disease, unspecified whether esophagitis present Morbid obesity with BMI of 50.0-59.9, adult BRENDA (obstructive sleep apnea) Type 2 diabetes mellitus without complication, without long-term current use of insulin Expected: 11/07/2024, Expires: 11/07/2025[facility] [place] [facility] HospitalComment on above: Expected: 11/07/2024, Expires: 11/07/2025Start: 11-07-2024 End: 11-31-8151OODUKPW-INRPROTIME-INR Lab Routine Gastroesophageal reflux disease, unspecified whether esophagitis present Morbid obesity with BMI of 50.0-59.9, adult BRENDA (obstructive sleep apnea) Type 2 diabetes mellitus without complication, without long-term current use of insulin Expected: 11/07/2024, Expires: 11/07/2025[facility] [place] [facility] HospitalComment on above:Expected: 11/07/2024, Expires: 11/07/2025Start: 11-07-2024 End: 70-10-6548HRQ INTACTPTH INTACT Lab Routine Gastroesophageal reflux disease, unspecified whether esophagitis present Morbid obesity with BMI of 50.0-59.9, adult BRENDA (obstructive sleep apnea) Type 2 diabetes mellitus without complication, without long-term current use of insulin Expected: 11/07/2024, Expires: 11/07/2025[facility] [place] [facility] HospitalComment on above:Expected: 11/07/2024, Expires: 11/07/2025Start: 11-07-2024 End: 49-28-8038JHA W/FT4 REFLEXTSH W/FT4 REFLEX Lab Routine Gastroesophageal reflux disease, unspecified whether esophagitis present Morbid obesity with BMI of 50.0-59.9, adult BRENDA (obstructive sleep apnea) Type 2 diabetes mellitus without complication, without long-term current use of insulin Expected: 11/07/2024, Expires: 11/07/2025[facility] [place] [facility] HospitalComment on above:Expected: 11/07/2024, Expires: 11/07/2025Start: 11-07-2024 End: 92-74-1604ULTEQBR D (25-HYDROXY,TOTAL)VITAMIN D (25-HYDROXY,TOTAL) Lab Routine Gastroesophageal reflux disease, unspecified whether esophagitis present Morbid obesity with BMI of 50.0-59.9, adult BRENDA (obstructive sleep apnea) Type 2 diabetes mellitus without complication, without long-term current use of insulin Expected: 11/07/2024, Expires: 11/07/2025[facility] [place] [facility] HospitalComment on above:Expected: 11/07/2024, Expires: 11/07/2025Start: 14-62-3445LVoN/Tdap/Td vaccine (2 - Td)DTaP/Tdap/Td vaccine (2 - Td)[place], [place]Start: 71-83-4469CIIXC-19 VACCINE ( season)COVID-19 VACCINE ()[facility] Hospitaltart: 07-21-2023 End: 44-36-5805Jydsqox encounter etgrjepyn66/18/2024 10:30 AM EST Appointment [facility] [address] [place] [address] Arlene Dickens UHC-Lumbar DDD-Eda GantzMANAT Physical TherapyComment on above:UHC- Lumbar DDD-Eda GantzStart: 07-19-2023 End: 01-66-7156Mmxbbrk encounter mjsdtmypr25/16/2024 10:30 AM EST Appointment [facility] [address] [place] [address] Ana Hester, PT UHC-Lumbar DDD-Eda GanJuan Physical TherapyComment on above:UHC-Lumbar DDD-Eda GantzStart: 07-14-2023 End: 95-00-0740Unguyyp encounter yfhailmlv67/11/2024 10:30 AM EST Appointment [facility] [address] [place] [address] Arlene Dickens UHC-Lumbar DDD-Eda GantzMANAT Physical TherapyComment on above:UHC- Lumbar DDD-Eda GantzStart: 07-11-2023 End: 74-09-5430Wlgvzcs encounter groraqhpt78/08/2024 10:30 AM EST Appointment [facility] [address] [place] [address] Ana Hester, PT UHC-Lumbar DDD-Eda GantzMWHZ Physical TherapyComment on above:[facility]-Lumbar DDD-Eda MeghanStart: 12-15-2022 End: 42-05-2772Usoavci encounter uhzovjsoq54/14/2023 Office Visit Gastroenterology Racheal Braden, HEEL [employer] [address] [address] [facility] GastroenterologyStart: 42-97-5204Frelhbvxdfi Syncytial Virus (RSV) or age 60 yrs+ (1 - 1-dose 60+ series)Respiratory Syncytial Virus (RSV) or age 60 yrs+ (1 - 1-dose 60+ series)[facility]ITALStart: 10-26-2022 End: 19-37-2939Qxwassy encounter efcyqmagl28/25/2023 Office Visit Cardiology Joselito Hsu MD [address] [place] [address] [facility] Cardiology SpecialistStart: 08-23-5447EahncumzrBethesda North Hospital CenterStart: 15-58-5210Zrggxrefjayai metabolic 2000 panel - Serum or PlasmaBethesda North Hospital CenterStart: 96-65-9443LcoplkdliBethesda North Hospital CenterStart: 71-84-1654ZurdqhhgtBethesda North Hospital CenterStart: 99-89-1885OqtnevtyqBethesda North Hospital CenterStart: 66-24-5447Yezcnmbr to Social ServicesBethesda North Hospital CenterStart: 09-10-2022 End: 20-89-9868HcmoodtlxBethesda North Hospital CenterStart: 63-71-2882Gzbvvyev admissionBethesda North Hospital CenterStart: 08-81-7372LpghohqyjBethesda North Hospital CenterStart: 09-08-2021 End: 26-40-5142Uefadkk encounter ebvvtchrj98/08/2022 [facility]ointment [facility] Diabetic EducationStart: 07-13-2021 End: 09-71-8444Kgbdagf encounter wzftwimrk61/10/2022 Appointment IP Unit Case Parish, RD, LD [facility] Diet and NutritionStart: 07-09-2021 End: 92-86-9643Bgefpqb encounter /06/2022 Appointment Diabetes ServicesMWHZ Diabetic EducationStart: 07-06-2021 End: 19-96-9074Rpdkutj encounter wnltpgnlo46/03/2022 Appointment IP Unit Case Parish, RD, LD [facility] Diet and NutritionStart: 04-10-2021 Pneumococcal 0-64 years Vaccine (2 - PCV)Pneumococcal 0-64 years Vaccine (2 - PCV)[facility]ITALStart: 56-54-7986Zmigiqqdjxgw vaccination PNEUMOCOCCAL VACCINE SERIES (2 of 2 - PCV)[facility] Hospitaltart: 04-07-2021 COVID-19 Vaccine (3 - Booster for Pfizer series)COVID-19 Vaccine (3 - Booster for Pfizer series)[facility] CampusStart: 98-86-9202Fchihjcgft measurementCreatinine monitoringSumma Health Akron CampusStart: 67-20-1385Nuqkuz cancer screenBreast cancer screen [facility] [place]Start: 78-14-3634Dfcgzxwiu for malignant neoplasm of breast Breast cancer screenSumma Health Akron CampusStart: 02-32-3631I0O test (Diabetic or Prediabetic)A1C test (Diabetic or Prediabetic)[facility] [place]Start: 69-36-2474Cjcucrnknz monitoringCreatinine [facility], [place]Start: 66-74-8068RcK5t (Bld) [Mass fraction]A1C test (Diabetic or Prediabetic)[facility] [place]Start: 03-86-2411Gbwbbsmhpn A1c qdqxdssersaH1N test (Diabetic or Prediabetic)[facility] CampusStart: 70-72-9845Uvmqy panelSumma Health Akron CampusStart: 23-87-6326Aqsuv screenLipid screenMercy Health Anderson Hospital, [place]Start: 02-27-3799Zgoeegdys monitoringPotassium monitoringSumma Health Akron CampusStart: 25-16-9443Bcwhguph Vaccine (2 of 3)Shingles Vaccine (2 of 3)[facility] CampusStart: 53-73-6402Yijpqwis vaccine (3 of 3)Shingles vaccine (3 of 3)[facility]ITALStart: 03-31-2020 End: 89-61-0147Eluysw Visit03/31/2020 Office Visit General Surgery Glenn Malik MD [address] [place], [place] [id number] [facility] Sociology Faculty Member - WillardStart: 77-99-0565Tubaobsoc vaccinationFlu vaccine (#1)[facility]art: 02-28-2020 End: 88-32-5378Ipqnfq Visit02/28/2020 Office Visit General Surgery Glenn Malik MD [address] [place] [address] [phone] [facility] Sociology Faculty Member - WillardStart: 65-69-9940Crnhmglof for malignant neoplasm of breastMAMMOGRAM SCREENING DISCUSSIONCleveland Clinic Euclid Hospitaltart: 09-07-2019 End: 25-51-2424Vkpdopkjolq68/06/2020 Appointment Pulmonary Function TestingMWHZ PFTStart: 53-18-2530Mqbuoyhckv monitoringCreatinine monitoringOcean [place], [place]Start: 39-60-2186Yaiolpvsr monitoringPotassium [place], [place] Start: 40-36-9120Axutu cancer screen colonoscopyColon cancer screen colonoscopy [facility] Hospitalart: 44-22-5042Uvhabjrau for malignant neoplasm of colon Colon cancer screen colonoscopyWyandot Memorial Hospitalart: 51-39-7004Vnntxshd Vaccine (1 of 2)Shingles Vaccine (1 of 2)[facility] Hospitalart: 11-16-2007 Screening for malignant neoplasm of colonB[facility]OURS [facility]: 76-30-0710Ourxa panelLIPID SCREENINGCleveland Clinic Euclid Hospitaltart: 1992 Screening for malignant neoplasm of cervixSumma Health Akron CampusStart: 24-34-0323Stditrqq cancer screenCervical cancer screenWyandot Memorial Hospitalart: 11-16-1983 Screening for malignant neoplasm of cervixSumma Health Akron CampusStart: 18-80-9503Zuzeqzgws C screeningHepatitis C screenBON SECOURS Memorial Hospital: 77-88-3176VHU screen HIV screenOcean Gate, KYStart: 27-89-3807PUE screeningMarietta Osteopathic Clinic: 21-66-0727Zwcvgbthah ScreenDepression ScreenSumma Health Akron CampusStart: 61-08-9598Abnrl screenLipid screenMercy Health Anderson Hospital, [place]Start: 72-09-9189Bdeigpntt C screen Hepatitis C screenMercy Health Anderson Hospital, [facility]: 96-96-1377Zfjrcgbgd C screening [facility] CampusCalculated LDL cholesterol levelKettering Health Main Campus End: 40-60-8495XMZRYX Lab Routine One Time for 1 Occurrences starting 03/17/2020 until 03/17/2020[facility] GroovinAdsLEE'S SUMMIT [facility], [place]Comment on above:One Time for 1 Occurrences starting 03/17/2020 until 03/17/2020CEACEA Lab Routine 03/17/2020 12:00 PM EDT [facility] HospitalQomuty, KYCholesterol.total/Cholesterol in HDL [Mass Ratio] in Serum or PlasmaKettering Health Main Campus End: 12-49-8600Zqakptdcecejts completeEchocardiogram complete Echocardiography Routine Hypertension, unspecified type Bilateral leg edema1 Occurrences starting 08/27/2022 until 3[employer] Work Phone: comment on above:1 Occurrences starting 08/27/2022 until 08/27/2022EKG 12 LeadEKG 12 Lead ECG Routine Syncope and collapse Pre- operative clearance Essential hypertension Hyperlipidemia, unspecified hyperlipidemia type Vitamin D deficiency 09/06/2019 11:05 AM [facility] GroovinAdsLEE'S SUMMIT [facility]OSPITAL, MERCYEKG 12 LeadEKG 12 Lead ECG STAT 10/14/2022 9:44 PM EDTBON [employer] Work Phone: End: 14-76-6960Mtvx PFT Study With BronchodilatorFull PFT Study With Bronchodilator PFT Routine SOB (shortness of breath) 1 Occurrences starting 12/2019 until 09/07/2019[facility] HospitalProlebrity VCNC, [place]Comment on above:1 Occurrences starting 09/07/2019 until 09/07/2019 End: 20-19-6700Zfql PFT Study With BronchodilatorFull PFT Study With Bronchodilator PFT Routine SOB (shortness of breath) Obstructive sleep apnea syn drome Moderate persistent asthma without complication Tobacco abuse 1 Occurrences starting 05/21/2021 until 05/21/2021[facility] HospitalUdacity Phone: comment on above:1 Occurrences starting 05/21/2021 until 05/21/2021Glucose measurement estimated from glycated hemoglobinKettering Health Main CampusH. PYLORI DETECTIONMercy Health Anderson HospitalMERCYComment on above: Release Upon Ordering for 1 Occurrences starting 03/17/2020Hemoglobin A1c/Hemoglobin.total in BloodKettering Health Main Campus End: 17-47-6061Letghdotir A1c/Hemoglobin.total in BloodBON [facility] Work Phone: comment on above:Once for 1 Occurrences starting 08/10/2023 until 08/10/2023Oxygen therapy [Minimum Data Set]Initiate Oxygen Therapy Protocol Respiratory Care Routine Daily until discontinued starting 03/17/2020[facility] HospitalMERCYComment on above:Daily until discontinued starting 03/17/2020 End: 12-55-6549Gewjsa therapy [Minimum Data Set]Initiate Oxygen Therapy Protocol Respiratory Care STAT One Time for 1 Occurrences starting 10/14/2022 until 3[facility] MEDICAL CENTERtextmetix Work Phone: Comment on above:One Time for 1 Occurrences starting 10/14/2022 until 3Patient EducationHeart Failure, Adult (DC)[facility] Work Phone: End: 85-09-9688Ymyhmsi Fasting?[facility] HOSPITALComment on above:Once for 1 Occurrences starting 08/10/2023 until 4Patient referralBethesda North Hospital Ctr Work Phone: Surgical PathologySurgical Pathology Lab Routine Release Upon Ordering for 1 Occurrences starting 03/17/2020[facility] HospitalMERCY Comment on above:Release Upon Ordering for 1 Occurrences starting 03/17/2020 End: 30-70-5050SS NON OB TRANSVAGINALUS NON OB TRANSVAGINAL Imaging Routine Hypertrophy of uterus Right lower quadrant pain 1 Occurrences starting 02/19/2020 until 02/19/2020[facility] HospitalMERCYComment on above:1 Occurrences starting 02/19/2020 until 02/19/2020US NON OB TRANSVAGINALUS NON OB TRANSVAGINAL Imaging Routine Hypertrophy of uterus Right lower quadrant pain 02/19/2020 2:36 PM [facility] [place], KYVLDL cholesterol measurementKettering Health Main CampusXR Lumbar spine [facility] Immunizations Immunization DateImmunizationNotesCare LccmybxkCzvucydk54-97-7101fuiyptlrr, seasonal, injectable, preservative free; Translations: [Fluzone TIV PF ][place] Rust [phone]-RhpcyJoint Township District [facility] 90-60-7937gnnhwikyg, injectable, quadrivalent, preservative freeTagregor Nigel 135-1534Xggauy-TirjiJoint Township District [facility] 94-52-1322wtcivurqw virus vaccine, unspecified formulationLupis SCHWARTZ 455-0264Pmiegk-Ehbis[address] [place] [address] 31-04-6692SFYK-CoV-2 (COVID-19) mRNAMUL.ORD!t74070Ouuxz BROWN [phone]-Blgld[address] [place] [address] 36-90-0401UXSQF-19 mRNA, Comirnaty (Pfizer)[facility] 45-87-4194MZSW-CoV-2 mRNA (czevdtcfwyw-tjye-hebehgx) vaccineLupis SCHWARTZ [phone]-Zjlsa[address] [place] [address] 74-64-0534UGAD-CoV-2 (COVID-19) mRNA BNT-162b2 [place]lem SCHWARTZ 135-8365Mgueyg-OmuttJoint Township District Memorial Hospital 18-55-2874tizcmczpw virus vaccine, unspecified formulationLupis SCHWARTZ 463-3250Gjbdtr-VjwllJoint [facility] District [facility] 34-15-2656IJDT-CoV-2 (COVID-19) mRNA BNT-162b2 Belem SCHWARTZ 529-2030Iykrgp-Cixpd[address] [place] [address] 98-66-1476UBXZ-CoV-2 (COVID-19) mRNA BNT-162b2 [place] SCHWARTZ 522-3574Afzkkn-Obiyw[address] [place] [address] Doc 87-95-9578fgnlxt vaccine, liveBrian RUBIO [phone]-AwduqGalion Community Hospital [place] 10839392-94-7619wnptsowpz virus vaccine, unspecified formulationBrian RUBIO 203-7981Dqxfgj-SofwpGalion Community Hospital Doc 10827842-35-1098wxwqlogedplx polysaccharide vaccine, 23 valentSoniaian RUBIO 620-9922Ibrwnh-LoardGalion Community Hospital Doc 10438370-40-1232ijyqcnm toxoid, unspecified formulationBrdaron RUBIO 311-8188Gsdjfa-KrxjmGalion Community Hospital [place] 10437422-04-6259arrnbx vaccine, liveSoniaian RUBIO 028-2493Ojigdp-JfqoqGalion Community Hospital [place] 1803019-09-8009yfbevpxfg virus vaccine, unspecified formulationParish RUBIO 272-0884Pxmlzl-SwawzGalion Community Hospital Doc 10310533-10-8259ejtizohai virus vaccine, unspecified formulationParish RUBIO 867-4890Xyjuth-IuypzGalion Community Hospital Doc 09926066-16-4452zqqfkltdw virus vaccine, unspecified formulationJefferson [facility]ington Hospital06-15-2018pneumococcal polysaccharide vaccine, 23 valentLupis BROWN 525-9150Sxmfbw-Ivmjg[address] [place] [address] Doc 83-29-4037ukpjouf toxoid, reduced diphtheria toxoid, and acellular pertussis vaccine, adsorbedVicki BROWN [phone]-Egoka[address] [place] [address] [place] Payers DatePayer CategoryPayerPolicy [id number] (Managed Care)[facility] MEDICAID COMMUNITY PLAN [id number] 2024Medicaid [id number] Health [id number] [id number]-[id number] Health InsuranceH[facility] [place]-Present [phone] [address] [place], [place] [address]jrkptpues [id number]02-07-7010 Private Health [id number] 1.2.840.742436.1.13.239.2.7.3.190672.315 11-35-0070Bnegcsn Health [id number] 1.2.840.272390.1.13.239.2.7.3.111[id number] 2.0.1.064458.3.57[id number] 2.0.1.851043.3.579.2.05812-15-3567Hfxlgsj83335108 2.0.1.694676.3.57[id number] 2.0.1.963469.3.57[id number] 2.840.1.309204.3.579.[id number] 2.16.840.1.452625.3.579.2.36423-95-7914Zawaeoe33292435 2.16.840.1.879860.3.579.2.73294-12-9574Dahllsx84595139 2.16.840.1.075958.3.579.2.91920-67-5131Htsxqda62941420 2.16.840.1.752119.3.579.2.51154-82-8750Oxcecwv75983402 2.16.840.1.045989.3.579.2.65194-38-3917Eigytoo33832722 2.16.840.1.293332.3.579.2.36662-43-7904Tsolcbb62447999 2..840.1.261501.3.579.2.51135-37-2499Icrsibr36985312 2.16.840.1.177603.3.579.2.41842-46-3799Gfryeai16068631 2.16.840.1.489168.3.579.2.77746-95-0342Nhnuhpl09057650 2.16.840.1.289986.3.579.2.49633-22-4221Iqwmzte85346458 2.16.840.1.876864.3.579.2.82934-92-1104Csmwzcj34196407 2.16.840.1.567233.3.579.2.35300-66-4198Ugknulq32617836 2.16.840.1.256518.3.579.2.86364-33-6663Ewdteim73505077 2.16.840.1.690310.3.579.2.17290-87-2039Yuhfopf09223454 2.16.840.1.805366.3.579.2.61087-45-4068Xbzpapf57757111 2.16.840.1.757373.3.579.2.09177-67-6315Itewogi57143052 2.16.840.1.554264.3.579.2.26372-17-5416Uawwvxt87128700 2.16.840.1.616228.3.579.2.22030-44-4031Ohstbhc50873415 2.16.840.1.277677.3.579.2.74260-40-4578Lwccvyr74456438 2.16.840.1.852082.3.579.2.44801-25-6706Mlwedvg82431046 2.16.840.1.667206.3.579.2.38302-39-3774Prqhuee28193249 2..840.1.046532.3.579.2.87633-10-3720Forcuvn55443240 2.16.840.1.996222.3.579.2.81959-95-1164Uandyzi89786804 2.16.840.1.689744.3.579.2.16567-26-8251Mdgifrr86837538 2.16.840.1.658945.3.579.2.68432-41-1867Vjneunj68534866 2.16.840.1.861829.3.579.2.78935-55-7378Tzvfzzx59251224 2.16.840.1.413215.3.579.2.07793-98-9266Qbqkjkk99434194 2.16.840.1.346933.3.579.2.95331-20-1419Cnypacj27448963 2.16.840.1.038415.3.579.2.65745-82-1646Ybdjolt16036595 2.16.840.1.172925.3.579.2.74772-13-4455Mdzkein26832208 2.16.840.1.569902.3.579.2.04866-01-6399Wwpoadv61151223 2.16.840.1.221566.3.579.2.92783-90-2828Wrbyxvc34029704 2.16.840.1.269357.3.579.2.79027-71-5101Ppweddn16174831 2.16.840.1.852332.3.579.2.06237-82-0531Qbwulxm94709138 2.16.840.1.680019.3.579.2.06030-61-0802Jmwhuol59613808 2.16.840.1.506230.3.579.2.19740-50-3852Yjdxnef02855801 2.16.840.1.751288.3.579.2.58479-31-6753Yuvybfu24020933 2.16.840.1.151763.3.579.2.93016-73-5886Xskyxiy01043735 2.16.840.1.303175.3.579.2.91334-57-1178Zlvlrkn52242096 2.16.840.1.872359.3.579.2.57317-75-2198Zzxalcb03823769 2.16.840.1.311574.3.579.2.20552-87-7924Fwzlnxc59629735 2.16.840.1.310008.3.579.2.45967-53-7756Efuntpa51928287 2.16.840.1.673850.3.579.2.45457-05-6833Yzxcmby85513426 2.16.840.1.503268.3.579.2.07391-07-3936Jjxcdtk33621010 2.16.840.1.977301.3.579.2.59082-54-2066Qkoaddd53291106 2.16.840.1.901216.3.579.2.69996-72-7351Fsmuzwt05874066 2.16.840.1.081720.3.579.2.31507-80-8909Zybomys73494547 2.16.840.1.245882.3.579.2.76387-47-6122Nfgnhup96163450 2.16.840.1.360489.3.579.2.69635-31-3507Rkoyhpt58808280 2.16.840.1.788519.3.579.2.68624-11-7810Fquvfev84876948 2.16.840.1.154676.3.579.2.61715-22-9661Bwyowsr05387425 2.16.840.1.864345.3.579.2.18878-15-3956Wiirqvi93900355 2.16.840.1.833679.3.579.2.36573-89-9018Hgjmznv131295453 2.16.840.1.349944.3.579.2.09264-40-0533Fypwaqi691281890 2.16.840.1.302008.3.579.2.85922-54-2951Vflijfy925546343 2.16.840.1.881337.3.579.2.47545-57-7969Powgwyb422663221 2.16.840.1.674840.3.579.2.56778-38-9044Heakbtd631180040 2.16.840.1.377345.3.579.2.73708-81-3275Qntlkwx793258141 2.16.840.1.262134.3.579.2.990Lvkpohd51877981 2.16.840.1.466342.3.579.2.531 Social History DateTypeDetailFacilityStart: 09-06-2019 End: 60-57-1232Qbtlsqr smoking status NHISCurrent every day smokerFirelands Regional Medical Center [facility]: 03-25-7369Pyaqjgs of tobacco useCigarette SmokerFirelands Regional Medical Center [facility]: 09-06-2019 End: 24-06-9224Heqkquaskv smoked current (pack per day) - ReportedFirelands Regional Medical Center South Campus: 09-06-2019 End: 12-21-7074Jjdbvze intakeCurrent drinker of alcohol (finding)[facility]: 96-41-8909Wrhgynf Comment5 cigarettes/dayFirelands Regional Medical Center [facility]: 43-32-5507Hxbcxhp Commentoccas.[facility]: 69-98-1318Bcn Assigned At BirthNot on fileFirelands Regional Medical Center [facility]: 09-06-2019 End: 05-12-4721Ryevfup use and exposureNever usedFirelands Regional Medical Center [facility]: 10-04-2022 End: 68-52-1448Eiilsbnu to SARS-CoV-2 (event)Not sureFirelands Regional Medical Center South Campus: 12-30-2021 End: 24-01-6912Mcsdayy smoking statusHeavy tobacco smoker (finding)[facility] Tobacco smoking statusNeverGalion Community Hospital [facility] Start: 10-14-2022 End: 95-09-6823Wbv Assigned At BirthFeSCCI Hospital [facility] Start: 09-10-2022 End: 41-51-7606Hqfmrvc smoking status NHISSmoker (finding)[facility]: 54-49-1798Mfp Assigned At BirthFeSt. Mary's [facility] [place] Campustart: 09-46-8624Wdnacmz SDOH Alcohol Aunshaotp4KVR [facility] Phone: start: 21-99-9234Zyjupsu SDOH Alcohol Std Yoeoco3JMX [employer] Phone: start: 42-05-3410Nghhkql SDOH Alcohol Vzokm2KNB [employer] Phone: start: 17-05-4173Srkxvcu Commentpatient had 2 bottles of rum todayBON [employer] Work Phone: How often to you have a drink containing alcohol? Monthly or lessDIGN[facility] [employer] InstrumentsHow many standard drinks containing alcohol do you have on a typical day?10 or moreDIGNITY HEALTH [facility] [employer] InstrumentsHow often do you have 6 or more drinks on 1 occasion?WeeklyDIGNITY [facility]ALTH [facility] Chapman InstrumentsStart: 85-78-3136Mgrguda CommentoccasionBullhead Community Hospital PhotoManiatart: 11-08-2016 End: 71-23-9218EdoIvwfij (finding)[facility] Doc Medical Equipment Procedure CodeEquipment CodeEquipment Original TextEquipment IdentifierDates Cement Smartghv W/ Gent 40gr Must Order [id number]: 01-43-7694Ycmzef Smartghv W/ Gent 40gr Must Order [id number]: 23-22-3723Xmmlyj Smartghv W/ Gent 40gr Must Order [id number]: 34-50-0376Dfky Knee Patella Asym X3 [id number]_impStart: 75-24-0316Wtzrqae, See Instructions, 300 EA, 3, Use to check BS TID and PRN dx E11.9, [facility] ,Supply, 170, cm, 05/27/21 8:31:00 EST, Height/Length Dosing, 157.8, kg, 05/27/21 8:31:00 EST, Weight DosingStart: 88-79-0655Uagi Strips, See Instructions, 300 EA, 3, Use to test BS TID and PRN dx E11.9, [facility], Supply, 170, cm, 05/27/21 8:31:00 EST, Height/Length Dosing, 157.8, kg, 05/27/21 8:31:00 EST, Weight DosingStart: 86-18-2028Hkepvbz, See Instructions, 100 EA, 3, Use to check BS daily dx E11.9, [facility]21924, Supply, 163,cm, 12/30/21 11:09:00 EDT, Height/Length Dosing, 154, kg, 12/30/21 11:09:00 EDT, Weight DosingStart: 84-83-0517Fdpk Strips, See Instructions, 100 EA, 3, Use to test BS daily dx E11.9, [facility] #39580, Supply, 163, cm, 12/30/21 11:09:00 EDT, Height/Length Dosing, 154, kg, 12/30/21 11:09:00 EDT, Weight DosingStart: 12-80-3475Ejzvofc, See Instructions, 100 EA, 3, Use to check BS daily dx E11.9, [facility] #71171, Supply, 163,cm, 12/30/21 11:09:00 EDT, Height/Length Dosing, 154, kg, 12/30/21 11:09:00 EDT, Weight DosingStart: 11-30-9958Ooyh Strips, See Instructions, 100 EA, 3, Use to test BS daily dx E11.9, [facility] #39629, Supply, 163, cm, 12/30/21 11:09:00 EDT, Height/Length Dosing, 154, kg, 12/30/21 11:09:00 EDT, Weight DosingStart: 78-33-9118Hsmqeju, See Instructions, 100 EA, 3, Use to check BS daily dx E11.9, [facility] #37586, Supply, 163,cm, 12/30/21 11:09:00 EDT, Height/Length Dosing, 154, kg, 12/30/21 11:09:00 EDT, Weight DosingStart: 67-48-5668Ypxs Strips, See Instructions, 100 EA, 3, Use to test BS daily dx E11.9, [facility] #38237, Supply, 163, cm, 12/30/21 11:09:00 EDT, Height/Length Dosing, 154, kg, 12/30/21 11:09:00 EDT, Weight DosingStart: 54-47-3221Urgflja, See Instructions, 100 EA, 3, Use to check BS daily dx E11.9, [facility] #46026, Supply, 163,cm, 12/30/21 11:09:00 EDT, Height/Length Dosing, 154, kg, 12/30/21 11:09:00 EDT, Weight DosingStart: 02-13-1993Thvn Strips, See Instructions, 100 EA, 3, Use to test BS daily dx E11.9, [facility] #36877, Supply, 163, cm, 12/30/21 11:09:00 EDT, Height/Length Dosing, 154, kg, 12/30/21 11:09:00 EDT, Weight DosingStart: 11-11-9194Koiwgtz, See Instructions, 100 EA, 3, Use to check BS daily dx E11.9, [facility] #34543, Supply, 163,cm, 12/30/21 11:09:00 EDT, Height/Length Dosing, 154, kg, 12/30/21 11:09:00 EDT, Weight DosingStart: 90-04-2498Ucio Strips, See Instructions, 100 EA, 3, Use to test BS daily dx E11.9, [facility] #05921, Supply, 163, cm, 12/30/21 11:09:00 EDT, Height/Length Dosing, 154, kg, 12/30/21 11:09:00 EDT, Weight DosingStart: 61-20-7026Nnaceqw, See Instructions, 100 EA, 3, Use to check BS daily dx E11.9, [facility] #65658, Supply, 163,cm, 12/30/21 11:09:00 EDT, Height/Length Dosing, 154, kg, 12/30/21 11:09:00 EDT, Weight DosingStart: 74-36-1034Torf Strips, See Instructions, 100 EA, 3, Use to test BS daily dx E11.9, [facility] #67239, Supply, 163, cm, 12/30/21 11:09:00 EDT, Height/Length Dosing, 154, kg, 12/30/21 11:09:00 EDT, Weight DosingStart: 80-22-3500Wyukeqh, See Instructions, 100 EA, 3, Use to check BS daily dx E11.9, [facility]14010, Supply, 163,cm, 12/30/21 11:09:00 EDT, Height/Length Dosing, 154, kg, 12/30/21 11:09:00 EDT, Weight DosingStart: 81-24-7677Wusd Strips, See Instructions, 100 EA, 3, Use to test BS daily dx E11.9, [facility] #94402, Supply, 163, cm, 12/30/21 11:09:00 EDT, Height/Length Dosing, 154, kg, 12/30/21 11:09:00 EDT, Weight DosingStart: 14-17-6439Eaqtitl, See Instructions, 100 EA, 3, Use to check BS daily dx E11.9, [facility]94201, Supply, 163,cm, 12/30/21 11:09:00 EDT, Height/Length Dosing, 154, kg, 12/30/21 11:09:00 EDT, Weight DosingStart: 57-35-7479Lsbs Strips, See Instructions, 100 EA, 3, Use to test BS daily dx E11.9, [facility] #94758, Supply, 163, cm, 12/30/21 11:09:00 EDT, Height/Length Dosing, 154, kg, 12/30/21 11:09:00 EDT, Weight DosingStart: 19-63-5545Mjzupjy, See Instructions, 100 EA, 3, Use to check BS daily dx E11.9, [facility] #60852, Supply, 163,cm, 12/30/21 11:09:00 EDT, Height/Length Dosing, 154, kg, 12/30/21 11:09:00 EDT, Weight DosingStart: 80-20-9556Rnrl Strips, See Instructions, 100 EA, 3, Use to test BS daily dx E11.9, [facility]88000, Supply, 163, cm, 12/30/21 11:09:00 EDT, Height/Length Dosing, 154, kg, 12/30/21 11:09:00 EDT, Weight DosingStart: 39-43-1752Qncdgwd, See Instructions, 100 EA, 3, Use to check BS daily dx E11.9, [facility]40476, Supply, 163,cm, 12/30/21 11:09:00 EDT, Height/Length Dosing, 154, kg, 12/30/21 11:09:00 EDT, Weight DosingStart: 50-45-8786Ioyi Strips, See Instructions, 100 EA, 3, Use to test BS daily dx E11.9, [facility] #81083, Supply, 163, cm, 12/30/21 11:09:00 EDT, Height/Length Dosing, 154, kg, 12/30/21 11:09:00 EDT, Weight DosingStart: 98-97-1305Keojaxw, See Instructions, 100 EA, 3, Use to check BS daily dx E11.9, [facility] #29198, Supply, 163,cm, 12/30/21 11:09:00 EDT, Height/Length Dosing, 154, kg, 12/30/21 11:09:00 EDT, Weight DosingStart: 50-38-2407Sana Strips, See Instructions, 100 EA, 3, Use to test BS daily dx E11.9, [facility] #40606, Supply, 163, cm, 12/30/21 11:09:00 EDT, Height/Length Dosing, 154, kg, 12/30/21 11:09:00 EDT, Weight DosingStart: 35-99-6102Cyxoapr, See Instructions, 100 EA, 3, Use to check BS daily dx E11.9, [facility] #14973, Supply, 163,cm, 12/30/21 11:09:00 EDT, Height/Length Dosing, 154, kg, 12/30/21 11:09:00 EDT, Weight DosingStart: 27-08-0053Cofn Strips, See Instructions, 100 EA, 3, Use to test BS daily dx E11.9, [facility] #68663, Supply, 163, cm, 12/30/21 11:09:00 EDT, Height/Length Dosing, 154, kg, 12/30/21 11:09:00 EDT, Weight DosingStart: 53-89-2364Ttfkkmc, See Instructions, 100 EA, 3, Use to check BS daily dx E11.9, [facility] #71521, Supply, 163,cm, 12/30/21 11:09:00 EDT, Height/Length Dosing, 154, kg, 12/30/21 11:09:00 EDT, Weight DosingStart: 51-48-8732Ypzr Strips, See Instructions, 100 EA, 3, Use to test BS daily dx E11.9, [facility] #23124, Supply, 163, cm, 12/30/21 11:09:00 EDT, Height/Length Dosing, 154, kg, 12/30/21 11:09:00 EDT, Weight DosingStart: 52-01-2493Lzpqiem, See Instructions, 100 EA, 3, Use to check BS daily dx E11.9, [facility] #63352, Supply, 163,cm, 12/30/21 11:09:00 EDT, Height/Length Dosing, 154, kg, 12/30/21 11:09:00 EDT, Weight DosingStart: 19-80-0469Bmjm Strips, See Instructions, 100 EA, 3, Use to test BS daily dx E11.9, [facility] #68654, Supply, 163, cm, 12/30/21 11:09:00 EDT, Height/Length Dosing, 154, kg, 12/30/21 11:09:00 EDT, Weight DosingStart: 13-85-1285Jqyidyu, See Instructions, 100 EA, 3, Use to check BS daily dx E11.9, [facility] #37010, Supply, 163,cm, 12/30/21 11:09:00 EDT, Height/Length Dosing, 154, kg, 12/30/21 11:09:00 EDT, Weight DosingStart: 54-72-9388Ehmp Strips, See Instructions, 100 EA, 3, Use to test BS daily, [facility] #69571, Supply, 167.5, cm,10/18/22 13:30:00 EDT, Height/Length Dosing, 147, kg, 10/18/22 13:30:00 EDT, Weight DosingStart: 66-70-7447Ncrtuyl, See Instructions, 100 EA, 3, Use to check BS daily dx E11.9, [facility] #48565, Supply, 163,cm, 12/30/21 11:09:00 EDT, Height/Length Dosing, 154, kg, 12/30/21 11:09:00 EDT, Weight DosingStart: 07-03-6292Cnwr Strips, See Instructions, 100 EA, 3, Use to test BS daily, [facility] #53073, Supply, 167.5, cm,10/18/22 13:30:00 EDT, Height/Length Dosing, 147, kg, 10/18/22 13:30:00 EDT, Weight DosingStart: 78-89-3769Wvowizi, See Instructions, 100 EA, 3, Use to check BS daily dx E11.9, [facility] #82891, Supply, 163,cm, 12/30/21 11:09:00 EDT, Height/Length Dosing, 154, kg, 12/30/21 11:09:00 EDT, Weight DosingStart: 69-22-4007Zhik Strips, See Instructions, 100 EA, 3, Use to test BS daily, [facility] #03467, Supply, 167.5, cm,10/18/22 13:30:00 EDT, Height/Length Dosing, 147, kg, 10/18/22 13:30:00 EDT, Weight DosingStart: 41-44-0131Laftjpn, See Instructions, 100 EA, 3, Use to check BS daily dx E11.9, [facility] #66365, Supply, 163,cm, 12/30/21 11:09:00 EDT, Height/Length Dosing, 154, kg, 12/30/21 11:09:00 EDT, Weight DosingStart: 14-80-5867Mjff Strips, See Instructions, 100 EA, 3, Use to test BS daily, [facility] #96111, Supply, 167.5, cm,10/18/22 13:30:00 EDT, Height/Length Dosing, 147, kg, 10/18/22 13:30:00 EDT, Weight DosingStart: 33-97-7951Smwtxkt, See Instructions, 100 EA, 3, Use to check BS daily dx E11.9, [facility] #60427, Supply, 163,cm, 12/30/21 11:09:00 EDT, Height/Length Dosing, 154, kg, 12/30/21 11:09:00 EDT, Weight DosingStart: 71-83-7392Ynsi Strips, See Instructions, 100 EA, 3, Use to test BS daily, [facility] #60101, Supply, 167.5, cm,10/18/22 13:30:00 EDT, Height/Length Dosing, 147, kg, 10/18/22 13:30:00 EDT, Weight DosingStart: 28-17-5247Zuatrgc, See Instructions, 100 EA, 3, Use to check BS daily dx E11.9, [facility] #59940, Supply, 163,cm, 12/30/21 11:09:00 EDT, Height/Length Dosing, 154, kg, 12/30/21 11:09:00 EDT, Weight DosingStart: 92-84-4333Edaw Strips, See Instructions, 100 EA, 3, Use to test BS daily, [facility] #68679, Supply, 167.5, cm,10/18/22 13:30:00 EDT, Height/Length Dosing, 147, kg, 10/18/22 13:30:00 EDT, Weight DosingStart: 96-96-2221Dstlakz, See Instructions, 100 EA, 3, Use to check BS daily dx E11.9, [facility] #79730, Supply, 163,cm, 12/30/21 11:09:00 EDT, Height/Length Dosing, 154, kg, 12/30/21 11:09:00 EDT, Weight DosingStart: 67-83-5843Uukj Strips, See Instructions, 100 EA, 3, Use to test BS daily, [facility] #36463, Supply, 167.5, cm,10/18/22 13:30:00 EDT, Height/Length Dosing, 147, kg, 10/18/22 13:30:00 EDT, Weight DosingStart: 42-68-0520Rnykxkd, See Instructions, 100 EA, 3, Use to check BS daily dx E11.9, [facility] #85820, Supply, 163,cm, 12/30/21 11:09:00 EDT, Height/Length Dosing, 154, kg, 12/30/21 11:09:00 EDT, Weight DosingStart: 63-45-3410Savp Strips, See Instructions, 100 EA, 3, Use to test BS daily, [facility] #[id number], Supply, 167.5, cm,10/18/22 13:30:00 EDT, Height/Length Dosing, 147, kg, 10/18/22 13:30:00 EDT, Weight DosingStart: 50-66-0375Vqdgsaf, See Instructions, 100 EA, 3, Use to check BS daily dx E11.9, [facility] #[id number], Supply, 163,cm, 12/30/21 11:09:00 EDT, Height/Length Dosing, 154, kg, 12/30/21 11:09:00 EDT, Weight DosingStart: 59-53-9821Ojhh Strips, See Instructions, 100 EA, 3, Use to test BS daily, [facility] #[id number], Supply, 167.5, cm,10/18/22 13:30:00 EDT, Height/Length Dosing, 147, kg, 10/18/22 13:30:00 EDT, Weight DosingStart: 22-00-5680Weaifjt, See Instructions, 100 EA, 3, Use to check BS daily dx E11.9, [facility] #[id number], Supply, 163,cm, 12/30/21 11:09:00 EDT, Height/Length Dosing, 154, kg, 12/30/21 11:09:00 EDT, Weight DosingStart: 96-67-9264Ibpe Strips, See Instructions, 100 EA, 3, Use to test BS daily, [facility] #[id number], Supply, 167.5, cm,10/18/22 13:30:00 EDT, Height/Length Dosing, 147, kg, 10/18/22 13:30:00 EDT, Weight DosingStart: 93-00-1825Rzaizzw, See Instructions, 100 EA, 3, Use to check BS daily dx E11.9, [facility] #[id number], Supply, 163,cm, 12/30/21 11:09:00 EDT, Height/Length Dosing, 154, kg, 12/30/21 11:09:00 EDT, Weight DosingStart: 76-55-9736Ydyi Strips, See Instructions, 100 EA, 3, Use to test BS daily, [facility] #[id number], Supply, 167.5, cm,10/18/22 13:30:00 EDT, Height/Length Dosing, 147, kg, 10/18/22 13:30:00 EDT, Weight DosingStart: 69-69-2721Nmovvwe, See Instructions, 100 EA, 3, Use to check BS daily dx E11.9, [facility] #[id number], Supply, 163,cm, 12/30/21 11:09:00 EDT, Height/Length Dosing, 154, kg, 12/30/21 11:09:00 EDT, Weight DosingStart: 43-28-3047Rodm Strips, See Instructions, 100 EA, 3, Use to test BS daily, [facility] #[id number], Supply, 167.5, cm,10/18/22 13:30:00 EDT, Height/Length Dosing, 147, kg, 10/18/22 13:30:00 EDT, Weight DosingStart: 71-11-1351Exdfesf, See Instructions, 100 EA, 3, Use to check BS daily dx E11.9, [facility] #[id number], Supply, 163,cm, 12/30/21 11:09:00 EDT, Height/Length Dosing, 154, kg, 12/30/21 11:09:00 EDT, Weight DosingStart: 12-88-8949Kroy Strips, See Instructions, 100 EA, 3, Use to test BS daily, [facility] #[id number], Supply, 167.5, cm,10/18/22 13:30:00 EDT, Height/Length Dosing, 147, kg, 10/18/22 13:30:00 EDT, Weight DosingStart: 09-66-8394Fttpgem, See Instructions, 100 EA, 3, Use to check BS daily dx E11.9, [facility] #[id number], Supply, 163,cm, 12/30/21 11:09:00 EDT, Height/Length Dosing, 154, kg, 12/30/21 11:09:00 EDT, Weight DosingStart: 31-93-8632Pjtr Strips, See Instructions, 100 EA, 3, Use to test BS daily, [facility] #[id number], Supply, 167.5, cm,10/18/22 13:30:00 EDT, Height/Length Dosing, 147, kg, 10/18/22 13:30:00 EDT, Weight DosingStart: 06-02-8626Lovfwcv Unknown 12/23/23 Non Biological UnknownFDAStart: 49-53-3734Jgqomqm, See Instructions, 100 EA, 3, Use to check BS daily dx E11.9, [facility] #[id number], Supply, 163,cm, 12/30/21 11:09:00 EDT, Height/Length Dosing, 154, kg, 12/30/21 11:09:00 EDT, Weight DosingStart: 61-40-9380Xmrd Strips, See Instructions, 100 EA, 3, Use to test BS daily, [facility] #[id number], Supply, 167.5, cm,10/18/22 13:30:00 EDT, Height/Length Dosing, 147, kg, 10/18/22 13:30:00 EDT, Weight DosingStart: 90-70-4413Gfewlfw Unknown 12/23/23 Non Biological UnknownFDAStart: 94-23-3322Tlxjpox, See Instructions, 100 EA, 3, Use to check BS daily dx E11.9, [facility] #[id number], Supply, 163,cm, 12/30/21 11:09:00 EDT, Height/Length Dosing, 154, kg, 12/30/21 11:09:00 EDT, Weight DosingStart: 57-38-5840Rywa Strips, See Instructions, 100 EA, 3, Use to test BS daily, [facility] #[id number], Supply, 167.5, cm,10/18/22 13:30:00 EDT, Height/Length Dosing, 147, kg, 10/18/22 13:30:00 EDT, Weight DosingStart: 03-43-9691Lmfuwci Unknown 12/23/23 Non Biological UnknownFDAStart: 67-34-0027Brfnaso, See Instructions, 100 EA, 3, Use to check BS daily dx E11.9, [facility] #[id number], Supply, 163,cm, 12/30/21 11:09:00 EDT, Height/Length Dosing, 154, kg, 12/30/21 11:09:00 EDT, Weight DosingStart: 48-52-5335Oeph Strips, See Instructions, 100 EA, 3, Use to test BS daily, [facility] #[id number], Supply, 167.5, cm,10/18/22 13:30:00 EDT, Height/Length Dosing, 147, kg, 10/18/22 13:30:00 EDT, Weight DosingStart: 60-04-3853Tbifptl Unknown 12/23/23 Non Biological UnknownFDA Start: 18-64-4288Emlzfqo, See Instructions, 100 EA, 3, Use to check BS daily dx E11.9, [facility] #[id number], Supply, 163,cm, 12/30/21 11:09:00 EDT, Height/Length Dosing, 154, kg, 12/30/21 11:09:00 EDT, Weight DosingStart: 46-77-3828Okor Strips, See Instructions, 100 EA, 3, Use to test BS daily, [facility] #[id number], Supply, 167.5, cm,10/18/22 13:30:00 EDT, Height/Length Dosing, 147, kg, 10/18/22 13:30:00 EDT, Weight DosingStart: 48-52-0297Ffnmuwp Unknown 12/23/23 Non Biological UnknownFDAStart: 77-05-6710Smvifnm, See Instructions, 100 EA, 3, Use to check BS daily dx E11.9, [facility] #[id number], Supply, 163,cm, 12/30/21 11:09:00 EDT, Height/Length Dosing, 154, kg, 12/30/21 11:09:00 EDT, Weight DosingStart: 59-02-6504Jycz Strips, See Instructions, 100 EA, 3, Use to test BS daily, [facility] #[id number], Supply, 167.5, cm,10/18/22 13:30:00 EDT, Height/Length Dosing, 147, kg, 10/18/22 13:30:00 EDT, Weight DosingStart: 06-01-8733Ehqwqub Unknown 12/23/23 Non Biological UnknownFDAStart: 21-61-5137Ccaujcb, See Instructions, 100 EA, 3, Use to check BS daily dx E11.9, [facility] #[id number], Supply, 163,cm, 12/30/21 11:09:00 EDT, Height/Length Dosing, 154, kg, 12/30/21 11:09:00 EDT, Weight DosingStart: 23-63-1164Uwqi Strips, See Instructions, 100 EA, 3, Use to test BS daily, [facility] #[id number], Supply, 167.5, cm,10/18/22 13:30:00 EDT, Height/Length Dosing, 147, kg, 10/18/22 13:30:00 EDT, Weight DosingStart: 05-03-9760Nuxoxhe Unknown 12/23/23 Non Biological UnknownFDAStart: 35-20-4874Althxny, See Instructions, 100 EA, 3, Use to check BS daily dx E11.9, [facility] #[id number], Supply, 163,cm, 12/30/21 11:09:00 EDT, Height/Length Dosing, 154, kg, 12/30/21 11:09:00 EDT, Weight DosingStart: 47-08-5320Kogn Strips, See Instructions, 100 EA, 3, Use to test BS daily, [facility] #[id number], Supply, 167.5, cm,10/18/22 13:30:00 EDT, Height/Length Dosing, 147, kg, 10/18/22 13:30:00 EDT, Weight DosingStart: 78-45-9670Ggzswfp Unknown 12/23/23 Non Biological UnknownFDAStart: 83-09-1689Llstcbz, See Instructions, 100 EA, 3, Use to check BS daily dx E11.9, [facility] #[id number], Supply, 163,cm, 12/30/21 11:09:00 EDT, Height/Length Dosing, 154, kg, 12/30/21 11:09:00 EDT, Weight DosingStart: 46-24-7246Zybs Strips, See Instructions, 100 EA, 3, Use to test BS daily, [facility] #[id number], Supply, 167.5, cm,10/18/22 13:30:00 EDT, Height/Length Dosing, 147, kg, 10/18/22 13:30:00 EDT, Weight DosingStart: 30-31-5851Jnutwkl Unknown 12/23/23 Non Biological UnknownFDA Start: 80-93-4205Tfchzvf, See Instructions, 100 EA, 3, Use to check BS daily dx E11.9, [facility] #[id number], Supply, 163,cm, 12/30/21 11:09:00 EDT, Height/Length Dosing, 154, kg, 12/30/21 11:09:00 EDT, Weight DosingStart: 63-34-3148Wpjl Strips, See Instructions, 100 EA, 3, Use to test BS daily, [facility] #[id number], Supply, 167.5, cm,10/18/22 13:30:00 EDT, Height/Length Dosing, 147, kg, 10/18/22 13:30:00 EDT, Weight DosingStart: 98-87-9295Zfiomih Unknown 12/23/23 Non Biological UnknownFDAStart: 86-44-3939Waqxvof, See Instructions, 100 EA, 3, Use to check BS daily dx E11.9, [facility] #[id number], Supply, 163,cm, 12/30/21 11:09:00 EDT, Height/Length Dosing, 154, kg, 12/30/21 11:09:00 EDT, Weight DosingStart: 92-71-2380Sefn Strips, See Instructions, 100 EA, 3, Use to test BS daily, [facility] #[id number], Supply, 167.5, cm,10/18/22 13:30:00 EDT, Height/Length Dosing, 147, kg, 10/18/22 13:30:00 EDT, Weight DosingStart: 05-79-6008Jekqlsr Unknown 12/23/23 Non Biological UnknownFDAStart: 48-99-2118Qeuyzco, See Instructions, 100 EA, 3, Use to check BS daily dx E11.9, [facility] #[id number], Supply, 163,cm, 12/30/21 11:09:00 EDT, Height/Length Dosing, 154, kg, 12/30/21 11:09:00 EDT, Weight DosingStart: 74-64-6893Dcah Strips, See Instructions, 100 EA, 3, Use to test BS daily, [facility] #[id number], Supply, 167.5, cm,10/18/22 13:30:00 EDT, Height/Length Dosing, 147, kg, 10/18/22 13:30:00 EDT, Weight DosingStart: 73-87-1823Wfpdmoh Unknown 12/23/23 Non Biological UnknownFDAStart: 74-20-0752Neiggpp, See Instructions, 100 EA, 3, Use to check BS daily dx E11.9, [facility] #[id number], Supply, 163,cm, 12/30/21 11:09:00 EDT, Height/Length Dosing, 154, kg, 12/30/21 11:09:00 EDT, Weight DosingStart: 40-40-6039Nqlp Strips, See Instructions, 100 EA, 3, Use to test BS daily, [facility] #[id number], Supply, 167.5, cm,10/18/22 13:30:00 EDT, Height/Length Dosing, 147, kg, 10/18/22 13:30:00 EDT, Weight DosingStart: 65-53-9546Eyrhmfi Unknown 12/23/23 Non Biological UnknownFDAStart: 53-73-4241Wfaikcc, See Instructions, 100 EA, 3, Use to check BS daily dx E11.9, [facility] #[id number], Supply, 163,cm, 12/30/21 11:09:00 EDT, Height/Length Dosing, 154, kg, 12/30/21 11:09:00 EDT, Weight DosingStart: 39-07-0377Xmox Strips, See Instructions, 100 EA, 3, Use to test BS daily, [facility] #[id number], Supply, 167.5, cm,10/18/22 13:30:00 EDT, Height/Length Dosing, 147, kg, 10/18/22 13:30:00 EDT, Weight DosingStart: 61-93-1357Lwzmmgw Unknown 12/23/23 Non Biological UnknownFDA Start: 47-90-8875Ljuwuip, See Instructions, 100 EA, 3, Use to check BS daily dx E11.9, [facility] #[id number], Supply, 163,cm, 12/30/21 11:09:00 EDT, Height/Length Dosing, 154, kg, 12/30/21 11:09:00 EDT, Weight DosingStart: 96-53-1179Wuoq Strips, See Instructions, 100 EA, 3, Use to test BS daily, [facility] #[id number], Supply, 167.5, cm,10/18/22 13:30:00 EDT, Height/Length Dosing, 147, kg, 10/18/22 13:30:00 EDT, Weight DosingStart: 36-48-1088Rpiwsxo Unknown 12/23/23 Non Biological UnknownFDAStart: 18-59-3670Hkjlyjt, See Instructions, 100 EA, 3, Use to check BS daily dx E11.9, [facility] #[id number], Supply, 163,cm, 12/30/21 11:09:00 EDT, Height/Length Dosing, 154, kg, 12/30/21 11:09:00 EDT, Weight DosingStart: 08-86-5904Zmee Strips, See Instructions, 100 EA, 3, Use to test BS daily, [facility] #[id number], Supply, 167.5, cm,10/18/22 13:30:00 EDT, Height/Length Dosing, 147, kg, 10/18/22 13:30:00 EDT, Weight DosingStart: 36-35-8421Pbvzfhm Unknown 12/23/23 Non Biological UnknownFDAStart: 79-69-0811Foplzzx, See Instructions, 100 EA, 3, Use to check BS daily dx E11.9, [facility] #[id number], Supply, 163,cm, 12/30/21 11:09:00 EDT, Height/Length Dosing, 154, kg, 12/30/21 11:09:00 EDT, Weight DosingStart: 15-13-3036Yneu Strips, See Instructions, 100 EA, 3, Use to test BS daily, [facility] #[id number], Supply, 167.5, cm,10/18/22 13:30:00 EDT, Height/Length Dosing, 147, kg, 10/18/22 13:30:00 EDT, Weight DosingStart: 28-73-0598Sfuciud Unknown 12/23/23 Non Biological UnknownFDAStart: 27-37-9582Naxqnjd, See Instructions, 100 EA, 3, Use to check BS daily dx E11.9, [facility] #[id number], Supply, 163,cm, 12/30/21 11:09:00 EDT, Height/Length Dosing, 154, kg, 12/30/21 11:09:00 EDT, Weight DosingStart: 03-69-9817Pguf Strips, See Instructions, 100 EA, 3, Use to test BS daily, [facility] #[id number], Supply, 167.5, cm,10/18/22 13:30:00 EDT, Height/Length Dosing, 147, kg, 10/18/22 13:30:00 EDT, Weight DosingStart: 94-34-0611Zlmaiqg Unknown 12/23/23 Non Biological UnknownFDAStart: 81-05-5935Axcaxxx, See Instructions, 100 EA, 3, Use to check BS daily dx E11.9, [facility] #[id number], Supply, 163,cm, 12/30/21 11:09:00 EDT, Height/Length Dosing, 154, kg, 12/30/21 11:09:00 EDT, Weight DosingStart: 89-23-9131Ffhi Strips, See Instructions, 100 EA, 3, Use to test BS daily, [facility] #[id number], Supply, 167.5, cm,10/18/22 13:30:00 EDT, Height/Length Dosing, 147, kg, 10/18/22 13:30:00 EDT, Weight DosingStart: 68-41-0854Ddrcitl Unknown 12/23/23 Non Biological UnknownFDA Start: 83-12-5489Jwwlbjw, See Instructions, 100 EA, 3, Use to check BS daily dx E11.9, [facility] #[id number], Supply, 163,cm, 12/30/21 11:09:00 EDT, Height/Length Dosing, 154, kg, 12/30/21 11:09:00 EDT, Weight DosingStart: 34-11-9438Krwn Strips, See Instructions, 100 EA, 3, Use to test BS daily, [facility] #[id number], Supply, 167.5, cm,10/18/22 13:30:00 EDT, Height/Length Dosing, 147, kg, 10/18/22 13:30:00 EDT, Weight DosingStart: 16-07-5077Gsbwjfs Unknown 12/23/23 Non Biological UnknownFDAStart: 23-35-4462Uavdhrc, See Instructions, 100 EA, 3, Use to check BS daily dx E11.9, [facility] #[id number], Supply, 163,cm, 12/30/21 11:09:00 EDT, Height/Length Dosing, 154, kg, 12/30/21 11:09:00 EDT, Weight DosingStart: 69-29-2674Mpto Strips, See Instructions, 100 EA, 3, Use to test BS daily, [facility] #[id number], Supply, 167.5, cm,10/18/22 13:30:00 EDT, Height/Length Dosing, 147, kg, 10/18/22 13:30:00 EDT, Weight DosingStart: 12-67-8260Vqyyyot Unknown 12/23/23 Non Biological UnknownFDAStart: 66-46-3246Ewwcgim, See Instructions, 100 EA, 3, Use to check BS daily dx E11.9, [facility] #[id number], Supply, 163,cm, 12/30/21 11:09:00 EDT, Height/Length Dosing, 154, kg, 12/30/21 11:09:00 EDT, Weight DosingStart: 98-58-1822Mosp Strips, See Instructions, 100 EA, 3, Use to test BS daily, [facility] #[id number], Supply, 167.5, cm,10/18/22 13:30:00 EDT, Height/Length Dosing, 147, kg, 10/18/22 13:30:00 EDT, Weight DosingStart: 06-15-3259Bscijlu Unknown 12/23/23 Non Biological UnknownFDAStart: 41-37-4228Svkuntl, See Instructions, 100 EA, 3, Use to check BS daily dx E11.9, [facility] #83578, Supply, 163,cm, 12/30/21 11:09:00 EDT, Height/Length Dosing, 154, kg, 12/30/21 11:09:00 EDT, Weight DosingStart: 66-17-1486Tfdc Strips, See Instructions, 100 EA, 3, Use to test BS daily, [facility] #[id number], Supply, 167.5, cm,10/18/22 13:30:00 EDT, Height/Length Dosing, 147, kg, 10/18/22 13:30:00 EDT, Weight DosingStart: 78-13-5431Csyuamc Unknown 12/23/23 Non Biological UnknownFDAStart: 38-48-4353Ecmbmtg, See Instructions, 100 EA, 3, Use to check BS daily dx E11.9, [facility] #[id number], Supply, 163,cm, 12/30/21 11:09:00 EDT, Height/Length Dosing, 154, kg, 12/30/21 11:09:00 EDT, Weight DosingStart: 28-09-4431Atzj Strips, See Instructions, 100 EA, 3, Use to test BS daily, [facility] #[id number], Supply, 167.5, cm,10/18/22 13:30:00 EDT, Height/Length Dosing, 147, kg, 10/18/22 13:30:00 EDT, Weight DosingStart: 10-19-2022 Goals DatePatient GoalDesired Activity/State Functional Status NomfKmtyrnzgbcNflrtwCutpepdl28-02-1717Biocmpgzxv StatusN/[facility] Exkgqzb65-73-2970Maeknfalci StatusN/[facility] Uapdgsp18-84-4974Nmbmmorqve StatusN/[facility]08-21-2024Functional StatusN/[facility] Jucezkn83-27-5308Zprgzlslof StatusN/[facility] 81-03-4320Vyzurxltlv StatusUC Health05-24-2024Functional StatusN/[facility] Dwlaudk32-53-6713Oqpqexyhju StatusN/[facility] Pyrfxu42-72-9363Fstkhgalwv Status N/[facility] Vxcusas30-72-8626Eszkejhqnq StatusUC Health04-09-2024Functional StatusN/[facility] Dnifyaa48-84-6749Uwnvinxyrl StatusN/[facility] Rcrgwwy88-77-4632Iueomukrge StatusN/[facility] Plbrohg42-07-5113Wstvyatzuo StatusN/[facility] Zkrfujc41-79-5038Wtsoqwkzjy StatusN/[facility] Isoxlmz53-42-5721Sqlucedvxg StatusN/[facility] Snteygm21-73-4408Qinchvccaw StatusNoPar[facility]03-29-2023Functional StatusUC Health 73-00-8608Hxuoiyqcyp StatusN/[facility] Higlzsk53-99-9476Syexhpvrwy StatusUC Health03-14-2023 Functional status[facility] at [facility] Work Phone: [phone]eo StatusN/[facility] Txwaout54-66-3158Sddqzpmpmc StatusN/[facility] Mokuwyo48-71-0912Yxzedvloos StatusN/[facility] [place] Mental Status CivdWdnsiofrbvHulalzEbroytij48-08-5365Vffshzsjs functionCognitive Status [facility] Work Phone: Clinical Notes 07-02-2021 to 04-09-2025 Note Date & QdmvUxhiCteepxnw49-67-4269 Hospital Discharge instructions Patient Education 04/09/2025 12:14:37 Acute Bronchitis, [...] cough may last longer. Allergies, asthma, and exposureto smoke may make the condition worse. What [...] water to the air to help you breathebetter. Taking a medicine that thins mucus and clears congestion (expectorant). Taking a medicine that prevents or stops coughing (cough suppressant). It is not common to take an antibiotic medicine for this condition. Follow these instructions at home: Take yhww-nzu-wfwxfsz and prescription medicines only as told by [...] need help quitting, ask your health careprovider. Get plenty of rest. Return to your [...] and water are not available, use hand principal examiner. Avoid contact with people who have cold [...] airways (bronchi) that come off the windpipe (trachea)in the lungs. The swelling causes the airways to get smaller and make more mucus than normal. Drinking more fluids can help thin your mucus so it is easier to cough up. Take agvs-jnp-fmfhuyc and prescription medicines only as told by your health care provider. Do not use any products that contain nicotine or tobacco. These products include cigarettes, chewing tobacco, and vaping devices, such as e-cigarettes. If you need help quitting, ask your health careprovider. Contact a health care provider if your symptoms do not improve after 2 weeks. This information is not intended to replace advice given to you by your health care provider. Make sure you discuss any questions you have with your health care provider. Document Revised: 09/30/2022 Document Reviewed: 10/21/2021 [employer] Patient Education 2023 [employer] 04/09/2025 06:41:02 Sleep Apnea Sleep Apnea Sleep [...] if you are female, or erectile dysfunction ifyou are male. How is this diagnosed? This [...] breathing and to ease symptoms during sleep. Itmay involve managing health issues that can affect [...] device blows air through a mask when youbreathe out (exhale). ?A nasal expiratory positive airway [...] ask your health careprovider. General instructions Take vlwm-tqp-lmvdgsd and prescription medicines only as told by [...] provider. Document Revised: 01/27/2022 Document Reviewed: 05/29/2021 [employer] Patient Education 2023 [employer]. 04/09/2025 06:41:00 Type 2 Diabetes Mellitus, Self-Care, [...] treat it right away. Always have a 38-ybgmggvvn-hvrxxw carbohydrate snack with you to treat low [...] you how to adjust your dosage. Take jcrz-owt-nkthhqw and prescription medicines only as told by [...] your health care provider once every year. Lena your teeth and gums two times a [...] meet with a certified diabetes care and academy education director? Where can I find a support group for people with diabetes? Where to find more information For help and guidance and for more information about diabetes, please visit: [place] [employer] (ADA): www.diabetes.org [employer] Care and Education Specialists [...] provider. Document Revised: 11/18/2021 Document Reviewed: 11/18/2021 [employer] Patient Education 2023 [employer]. 04/09/2025 06:40:57 Asthma, Adult Asthma, Adult Asthma is a long-term (chronic) condition that causes recurrent episodes in which the lower airwaysin the lungs become tight and narrow. The narrowing is caused by inflammation and tightening of thesmooth muscle around the lower airways. Asthma episodes, [...] or hours later and can vary by person.Common signs and symptoms include: Wheezing. Trouble breathing (shortness of breath). Excessive nighttime or wet milling wheel operator coughing. Chest tightness. Tiredness (fatigue) with [...] condition. Follow these instructions at home: Take sbti-icp-mkicanp and prescription medicines only as told by [...] provider. Document Revised: 04/07/2022 Document Reviewed: 03/29/2022 [employer] Patient Education 2023 [employer] Follow Up Care 04/08/2025 08:18:43 With:Nigel MSN, HEEL COVER SOFTENER[employer], [place] Address: [address] [place] [phone] When:Within 3 Month(s) Comments:chronic care [facility] Doc 10-07-2025 NotePatient Education ENT Sleep Apnea Sleep apnea is [...] breathing and to ease symptoms during sleep. Itmay involve managing health issues that can affect [...] device blows air through a mask when youbreathe in (inhale) and breathe out (exhale). ??? [...] health care provider. General instructions ??? Take hjhq-hqx-xdoskxz and prescription medicines only as told by [...] during sleep is uncomfortable or does not seemto be working. ??? Your symptoms do not improve. ??? Your symptoms get worse. Get help right away if: ??? You develop: ? Chest pain. ? Shortness of breath. ? Discomfort in your back, arms, or stomach. ??? You have: ? Trouble speak (more content not included)...[facility] 03-04-2025 Hospital Discharge instructions Patient Education 03/04/2025 12:44:29 Asthma, Adult Asthma, Adult Asthma is a long-term (chronic) condition that causes recurrent episodes in which the lower airwaysin the lungs become tight and narrow. The narrowing is caused by inflammation and tightening of thesmooth muscle around the lower airways. Asthma episodes, [...] or hours later and can vary by person.Common signs and symptoms include: Wheezing. Trouble breathing (shortness of breath). Excessive nighttime or wet milling wheel operator coughing. Chest tightness. Tiredness (fatigue) with [...] condition. Follow these instructions at home: Take khyf-jfq-aqyanco and prescription medicines only as told by [...] provider. Document Revised: 04/07/2022 Document Reviewed: 03/29/2022 [employer] Patient Education 2023 [employer]. 03/04/2025 12:44:27 Exercising to Lose Weight Exercising to Lose Weight Getting regular exercise is important for everyone. It is especially important if you are overweight. Being overweight increases your risk of heart disease, stroke, diabetes, high blood pressure, andseveral types of cancer. Exercising, and reducing the [...] of moderate-intensity exercise a week to maintain theirbody weight. Vigorous-intensity exercise Vigorous-intensity exercise is any [...] you need and what types of activities aresafe for you. Nutrition Make changes to your diet as told by your health care provider or diet and nutrition worker (dietitian). This may include: ?Eating fewer calories. ?Eating more protein. ?Eating less unhealthy fats. ?Eating a diet that includes fresh fruits and vegetables, whole grains, low-fat dairy products, andlean protein. ?Avoiding foods with added fat, salt, [...] provider. Document Revised: 08/16/2021 Document Reviewed: 08/16/2021 [employer] Patient Education 2023 [employer]. 03/04/2025 12:44:24 Type 2 Diabetes Mellitus, [...] treat it right away. Always have a 32-perufdsez-igohpb carbohydrate snack with you to treat low [...] you how to adjust your dosage. Take uzuh-mgu-trkcjwe and prescription medicines only as told by [...] your health care provider once every year. Lena your teeth and gums two times a [...] meet with a certified diabetes care and academy education director? Where can I find a support group for people with diabetes? Where to find more information For help and guidance and for more information about diabetes, please visit: [place] [employer] (ADA): www.diabetes.org [employer] Care and Education Specialists [...] provider. Document Revised: 11/18/2021 Document Reviewed: 11/18/2021 [employer] Patient Education 2023 [employer]. [facility] [place] 09-01-2025 NotePatient Education Endocrinology Type 2 Diabetes Mellitus, [...] treat it right away. Always have a 31-zknlmzxpx-sacbyo carbohydrate snack with you to treat low [...] how to adjust your dosage. ??? Take zkbw-qro-niqozxu and prescription medicines only as told by [...] of the week. ? (more content not included)...[facility]08-04-2025 Hospital Discharge instructions Patient Education 02/04/2025 15:12:35 Exercising to Lose Weight Exercising to Lose Weight Getting regular exercise is important for everyone. It is especially important if you are overweight. Being overweight increases your risk of heart disease, stroke, diabetes, high blood pressure, andseveral types of cancer. Exercising, and reducing the [...] of moderate-intensity exercise a week to maintain theirbody weight. Vigorous-intensity exercise Vigorous-intensity exercise is any [...] you need and what types of activities aresafe for you. Nutrition Make changes to your diet as told by your health care provider or diet and nutrition worker (dietitian). This may include: ?Eating fewer calories. ?Eating more protein. ?Eating less unhealthy fats. ?Eating a diet that includes fresh fruits and vegetables, whole grains, low-fat dairy products, andlean protein. ?Avoiding foods with added fat, salt, [...] provider. Document Revised: 08/16/2021 Document Reviewed: 08/16/2021 [employer] Patient Education 2023 [employer]. 02/04/2025 15:12:32 Type 2 Diabetes Mellitus, [...] treat it right away. Always have a 13-ipgwwjedz-nvewzw carbohydrate snack with you to treat low [...] you how to adjust your dosage. Take cypq-hnx-owlquhq and prescription medicines only as told by [...] your health care provider once every year. Lena your teeth and gums two times a [...] meet with a certified diabetes care and academy education director? Where can I find a support group for people with diabetes? Where to find more information For help and guidance and for more information about diabetes, please visit: [place] [employer] (ADA): www.diabetes.org [employer] Care and Education Specialists [...] provider. Document Revised: 11/18/2021 Document Reviewed: 11/18/2021 [employer] Patient Education 2023 [employer]. 02/04/2025 15:12:29 Asthma, Adult Asthma, Adult Asthma is a long-term (chronic) condition that causes recurrent episodes in which the lower airwaysin the lungs become tight and narrow. The narrowing is caused by inflammation and tightening of thesmooth muscle around the lower airways. Asthma episodes, [...] or hours later and can vary by person.Common signs and symptoms include: Wheezing. Trouble breathing (shortness of breath). Excessive nighttime or wet milling wheel operator coughing. Chest tightness. Tiredness (fatigue) with [...] condition. Follow these instructions at home: Take laig-jhu-dakudjg and prescription medicines only as told by [...] provider. Document Revised: 04/07/2022 Document Reviewed: 03/29/2022 [employer] Patient Education 2023 [employer] Follow Up Care 01/02/2025 14:24:55 With:Nigel SMITH, HEEL COVER SOFTENER-[place] VILLATORO Address: [address] [place] [phone] When:Within 1 Month(s) Comments:weight loss, initial 40 min [facility] 08-04-2025 NotePatient Education Endocrinology Type 2 Diabetes Mellitus, [...] treat it right away. Always have a 12-yuhbfkuna-qjrzov carbohydrate snack with you to treat low [...] how to adjust your dosage. ??? Take yudb-ezq-caoeqow and prescription medicines only as told by [...] of the week. ? (more content not included)...[facility]07-24-2025 NoteED Patient Education Note Caregiving Tissue Adhesive Wound Care Some cuts, wounds, lacerations, and incisions can be repaired by using tissue adhesive, also calledskin glue. It holds the skin together so healing can happen faster. It forms a strong venegas on the skin in about 1 minute, and it reaches its full strength in about 2?3 minutes. The adhesive goes awayon its own while the wound is healing. It is important to take good care of your wound while it heal s. Follow these instructions at home: Wound care ??? If a bandage (dressing) has been applied, keep it clean and dry. ??? Follow instructions from your health care provider about how often to change the dressing. Makesure you: ? Wash your hands with soap and water for at least 20 seconds before and after you change your dressing. If soap and water are not available, use hand principal examiner. ? Change your dressing as told by [...] scar, or cover it up. ??? Take nkyp-gmp-qxvszxd and prescription medicines only as told by [...] healing. It is important to take good careof your wound at home while it heals. [...] provider. Document Revised: 10/26/2021 Document Reviewed: 10/26/2021 [employer] Patient Education ? 2023 [employer]. Fall Prevention in the Home, Adult Falls [...] Keep items that you use often in thuk-qk-egiah places. Lower t (more content not included)...[facility]07-03-2025 NoteMicrobiology PROCEDURE: Blood Culture Charcoal [R1] SOURCE: Blood BODY SITE: Arm L COLLECTED DATE/TIME: 12/27/2024 10:54 EDT RECEIVED DATE/TIME: 12/27/2024 11:21 EDT START DATE/TIME: 12/27/2024 11:21 EDT FREE TEXT SOURCE: Mendez Spain, Whit Simms M.D., Whit Thurman FINAL REPORTS Final Report [] Verified Date/Time: 01/03/2025 12:00 EDT No growth at 7 days. Performing Locations R1: This test was performed at: [facility], [address] [place] [address], [id number] , , DtshwoWooster Community HospitalComment on above:Performed By: #### [id number] #### [facility] [address] [place] [address] [phone] NoteMicrobiology PROCEDURE: Blood Culture Charcoal [R1] SOURCE: Blood BODY SITE: Arm R COLLECTED DATE/TIME: 12/27/2024 10:56 EDT RECEIVED DATE/TIME: 12/27/2024 11:21 EDT START DATE/TIME: 12/27/2024 11:21 EDT FREE TEXT SOURCE: IV Start Mendez Spain, Astrit H Mendez Spain, Whit H FINAL REPORTS Final Report [] Verified Date/Time: 01/03/2025 12:00 EDT No growth at 7 days. Performing Locations R1: This test was performed at: [facility], [address] [place] [address], [address] [place] [address], RhwpqgWooster [facility] HospitalComment on above:Performed By: #### [id number] #### [facility] [address] [place] [address] [id number] Hospital Discharge instructions Patient Education 01/02/2025 06:50:40 Type 2 [...] treat it right away. Always have a 32-qumlfkryi-yialib carbohydrate snack with you to treat low [...] you how to adjust your dosage. Take xvjq-osx-lltzrba and prescription medicines only as told by [...] your health care provider once every year. Lena your teeth and gums two times a [...] meet with a certified diabetes care and academy education director? Where can I find a support group for people with diabetes? Where to find more information For help and guidance and for more information about diabetes, please visit: [place] Diabetes Association (ADA): www.diabetes.org [employer] Association of Diabetes Care and Education Specialists [...] provider. Document Revised: 11/18/2021 Document Reviewed: 11/18/2021 [employer] Patient Education 2023 [employer] 01/02/2025 06:50:38 Sleep Apnea Sleep Apnea Sleep [...] if you are female, or erectile dysfunction ifyou are male. How is this diagnosed? This [...] breathing and to ease symptoms during sleep. Itmay involve managing health issues that can affect [...] device blows air through a mask when youbreathe out (exhale). ?A nasal expiratory positive airway [...] ask your health careprovider. General instructions Take qzxj-nuu-whjnlcu and prescription medicines only as told by [...] provider. Document Revised: 01/27/2022 Document Reviewed: 05/29/2021 [employer] Patient Education 2023 [employer]. 01/02/2025 06:50:35 Heart Failure, Self-Care Heart [...] when you have heart failure Medicines Take zjbx-wjh-bbcndwl and prescription medicines only as told by [...] provider. Document Revised: 09/28/2022 Document Reviewed: 01/10/2021 [employer] Patient Education 2023 [employer]. 01/02/2025 06:50:34 Health Risks of Smoking [...] Department of Health and Human Services: www.smokefree.gov [employer] Lung Association: www.freedomfromsmoking.org [employer] Heart Association: www.heart.org Where to find more [...] provider. Document Revised: 06/22/2022 Document Reviewed: 06/22/2022 [employer] Patient Education 2023 [employer]. Follow Up Care 12/19/2024 13:33:44 With:Nigel SMITH, HEEL COVER SOFTENER-DRAPERY HEMMER AUTOMATIC, Paris Hamilton Address: [address] [place] [phone] When:Within 1 Month(s) [facility] [place] 07-02-2025 NotePatient Education Cardiovascular Heart Failure, Self-Care Heart failure [...] when you have heart failure Medicines Take rtpa-lyk-fdzfeuh and prescription medicines only as told by [...] your health care provider. Fluid restriction may reducesymptoms of heart failure. Alcohol use ??? Do [...] too much fluid is building up in yourbody. ? Weigh yourself every morning after you [...] outside. ? Avoid alcohol. (more content not included)...[facility] 12-29-2024 Evaluation + Plan noteExtracted from:Title:Discharge NoteAuthor: Abisai Kaur III, DODate:12/29/24 Discharge To, Anticipated II - Home with [...] When Contact Information Follow up with your excavation laborer as Scheduled January 01 Additional Instructions: Paris Rust Within 7 to 10 days [address] [place] [address] [phone] Business (1) Additional Instructions: Call for followup appointment Cellulitis, Adult Fluid Restriction Heart Failure Action Plan Form - Daily Weight Record Extracted from:Title:APSO NoteAuthor:Abisai Kaur III, DODate:12/28/24 Patient is a 64-year-old fem nazanin with past medical history of tobacco abuse, HTN, HFpEF, GERD, history of alcohol abuse, HLD, asthma, BRENDA, morbid obesity (BMI 58.6), jwi-gvxzswr-njejyocrv type 2 diabetes, marijuana use, COPD not on home oxygen, hypertension, history of volume overload especially with heavy alcohol use admitted to [facility] on 12/27/2024 for treatment of [...] made to ensure accuracy. However inadvertent computerized hotel breakfast attendant errors may be present. Extracted from:Title:Admission H & PAuthor:Abisai Kaur III, DODate: 12/27/24 Patient is a 64-year-old fem nazanin with past medical history of tobacco abuse, HTN, HFpEF, GERD, history of alcohol abuse, HLD, asthma, BRENDA, morbid obesity (BMI 58.6), dbi-pumewqf-feqgmfeiy type 2 diabetes, marijuana use, COPD not on home oxygen, hypertension, history of volume overload especially with heavy alcohol use admitted to [facility] on 12/27/2024 for treatment of acute COPD [...] BID for 30 day(s), Stop date 01/26/25 20:59:00EDT, Routine, Start date 12/27/24 21:00:00 EDT, 12/27/24 [...] Complete Initial Hospital Care/Day Moderate 55 Minutes [id number] Notify Provider Vital Signs Notify Provider Vital [...] made to ensure accuracy. However inadvertent computerized hotel breakfast attendant errors may be present. Addendum by Abisai [...] equal & normal bilaterally, speech normal Extracted from:Title:ED NoteAuthor:Mendez Spain, Whit HDate:12/27/24 1. Acute exacerbation of con gestive heart [...] Provider:Rick Hernandez PA-C [facility] Appointment Type:Cardiology Follow Up (FT) Appointment Date:01/02/2025 01:40:00 PM Scheduled Provider:Nigel SMITH, Paris ESPINO Location:[facility] Doc Appointment Type:FM Open Appointment Date:01/07/2025 12:30:00 PM Scheduled Provider: [facility] Appointment Type:PUL Pulmonary Function Test (FT) Future Scheduled Tests Laboratory* Microalbumin Level Urine 12/19/24 * Urine Microalbumin/Creatinine Ratio 12/19/24 [facility] 06-28-2025 Hospital Discharge instructions Patient Education [...] Follow these instructions at home: Medicines Take oesi-rvi-hdmatsp and prescription medicines only as told by [...] provider. Document Revised: 02/15/2023 Document Reviewed: 02/15/2023 [employer] Patient Education 2023 [employer]. 12/29/2024 11:04:37 Fluid Restriction Fluid Restriction [...] provider. Document Revised: 04/07/2021 Document Reviewed: 04/07/2021 [employer] Patient Education 2023 [employer]. 12/29/2024 11:04:35 Heart Failure Action Plan [...] symptoms. Follow these instructions at home: Take vnfu-cjh-hoainbc and prescription medicines only as told by [...] diet. Work with a diet and nutrition worker (dietitian) to create an eatingplan that is best for you. Keep all follow-up visits. This is important. Where to find more information [employer] Heart Association: Summary A heart failure action [...] provider. Document Revised: 09/28/2022 Document Reviewed: 02/02/2021 [employer] Patient Education 2023 [employer] 12/29/2024 11:04:33 Form - Daily Weight [...] provider. Document Revised: 02/23/2022 Document Reviewed: 02/23/2022 [employer] Patient Education 2023 [employer]. Follow Up Care 12/27/2024 10:32:55 With:Follow up with your excavation laborer as Scheduled January 01 Address:Unknown When: Unknown With:Paris Rebolledoant Address: [address] [place] [phone] [facility] (1) When:7 to 10 days Comments:Call for followup appointment [facility] 06-28-2025 NoteDischarge Summary Admission and Discharge [...] HLD, asthma, BRENDA, morbid obesity (BMI 58.6), fax-hsqyphy-kzhvgogqx type 2 diabetes, marijuana use, COPD not on home oxygen, hypertension, history of volume overload especially with heavy alcohol use admitted to [facility] on 12/27/2024 for treatment of [...] 250 mg= 1 tab(s) (more content not included)...[facility] HospitalComment on above:Result Comment: Electronically Signed By: Abisai Kaur III, DO.br\Date and Time Signed: 12/29/24 11:11 EDT 12-28-2024 NoteProgress Note-Physician Assessment/Plan Patient is a 64-year-old female with past medical history of tobacco abuse, HTN, HFpEF, GERD, history of alcohol abuse, HLD, asthma, BRENDA, morbid obesity (BMI 58.6), ezz-jsmxtvl-vefkzfwlu type 2 diabetes, marijuana use, COPD not on home oxygen, hypertension, history of volume overload especially with heavy alcohol use admitted to [facility] on 12/27/2024 for treatment of [...] made to ensure accuracy. However inadvertent computerized hotel breakfast attendant errors may be present. Subjective Patient seen [...] Intake mL 125 4,209 (more content not included)...[facility] HospitalComment on above: Result Comment: Electronically Signed By: Abisai Kaur III, DO\Date and Time Signed: 12/28/24 14:25 [id number] NoteHistory and Physical Basic Information Admit Date/Time:12/27/2024 13:58 Chief Complaint Shortness od breath, edema History of Present Illness Patient is a 64-year-old female with past medical history of tobacco abuse, HTN, HFpEF, GERD, history of alcohol abuse, HLD, asthma, BRENDA, morbid obesity (BMI 58.6), dlt-kgttsfw-xzpsdwmck type 2 diabetes, marijuana use, COPD not on home oxygen, hypertension, history of volume overload especially with heavy alcohol use who presents to [facility], ER on 12/27/2024 with chief complaint of [...] Lymph Auto: 12.1 % Low (12/27/24 10:54:00) Ber[place] Auto: 5.3 % (12/27/24 10:54:00) Eos Auto: 1 % (12/27/24 10:54:00) Basophil Auto: 0.8 % (12/27/24 10:54:00) Neutro Absolute: 5.8 E9/L (12/27/24 10:54:00) Lymph Absolute: 0.9 E9/L Low (12/27/24 10:54:00) [place] Absolute: 0.4 E9/L (12/27/24 10:54:00) Eos Absolute: [...] 87 mg/dL (12/27/24 16:55:00) POC Device SN: [id number] (12/27/24 16:55:00) POC User ID: [id number] (12/27/24 16:55:00) POC Username: MIKEY CADET (12/27/24 16:55:00) Assessment/Plan Patient is a 64-year-old female with past medical history of tobacco abuse, HTN, HFpEF, GERD, history of alcohol abuse, HLD, asthma, BRENDA, morbid obesity (BMI 58.6), jnh-iawixud-yhgfqsnpx type 2 diabetes, marijuana use, COPD not on home oxygen, hypertension, history of volume overload especially with heavy alcohol use admitted to [facility] on 12/27/2024 for treatment of acute COPD exacerbation and acute heart failure exacerbation. 1. Acute on chronic heart failure (more content not included)...[facility] HospitalComment on above:Result Comment: Electronically Signed By: Abisai Kaur III, DO\.br\Date and Time Signed: 12/28/24 14:21 [id number] Note Echocardiology Procedure Exam Date/Time Accession # Ordering Echo Transthoracic 12/28/2024 10:03 EDT [id number] Abisai Kaur III, DO CPT code [id number] Reason for Exam (Echo Transthoracic Complete) Congestive Heart Failure Report [facility] [address] [place] [address] Adult Echocardiogram Report Name: CARMEN BLEDSOE Study Date: 12/28/2024 09:14 AM BP: 131/72 mmHg Patient Location: S321 01 HR: 73 : 1960 Gender: Female Height: 65.5 in Age: 64 yrs Ethnicity: [facility] Weight: 353 lb Reason For Study: Congestive Heart Failure BSA: 2.5 m2 History: HTN,Diabetes,BRENDA, Asthma, Smoker Alcohol abuse- remission Ordering Physician: Deb^Erich Performed By: Annabel Oconnell RDCS Interpretation Summary The left ventricle is normal [...] Winter Coe MD Transcribed by: RUBEN Technologist: [facility]06-26-2025 Note History and Physical Basic Information Admit Date/Time:12/27/2024 13:58 Chief Complaint Shortness od breath, edema History of Present Illness Patient is a 64-year-old female with past medical history of tobacco abuse, HTN, HFpEF, GERD, history of alcohol abuse, HLD, asthma, BRENDA, morbid obesity (BMI 58.6), myw-uwktfat-qwrrrjhdk type 2 diabetes, marijuana use, COPD not on home oxygen, hypertension, history of volume overload especially with heavy alcohol use who presents [facility] on 12/27[facility]2024 with chief complaint of [...] Lymph Auto: 12.1 % Low (12/27/24 10:54:00) [place] Auto: 5.3 % (12/27/24 10:54:00) Eos Auto: 1 % (12/27/24 10:54:00) Basophil Auto: 0.8 % (12/27/24 10:54:00) Neutro Absolute: 5.8 E9/L (12/27/24 10:54:00) Lymph Absolute: 0.9 E9/L Low (12/27/24 10:54:00) [place] Absolute: 0.4 E9/L (12/27/24 10:54:00) Eos Absolute: [...] 87 mg/dL (12/27/24 16:55:00) POC Device SN: [id number] (12/27/24 16:55:00) POC User ID: [id number] (12/27/24 16:55:00) POC Username: MIKEY CADET (12/27/24 16:55:00) Assessment/Plan Patient is a 64-year-old female with past medical history of tobacco abuse, HTN, HFpEF, GERD, history of alcohol abuse, HLD, asthma, BRENDA, morbid obesity (BMI 58.6), xou-uzvzdnu-wfqmzqedu type 2 diabetes, marijuana use, COPD not on home oxygen, hypertension, history of volume overload especially with heavy alcohol use admitted to [facility] on 12/27/2024 for treatment of acute COPD exacerbation and acute heart failure exacerbation. 1. Acute on chronic heart failure (more content not included)...[facility] HospitalComment on above:Result Comment: Electronically Signed By: Abisai Kaur III, DO.br\Date and Time Signed: 12/27/24 17:49 [id number] Hospital Discharge instructions Patient Education 12/19/2024 06:38:27 [...] treat it right away. Always have a 96-bewdevzdp-vcddnk carbohydrate snack with you to treat low [...] you how to adjust your dosage. Take nhma-ebf-knegxmb and prescription medicines only as told by [...] your health care provider once every year. Lena your teeth and gums two times a [...] meet with a certified diabetes care and academy education director? Where can I find a support group for people with diabetes? Where to find more information For help and guidance and for more information about diabetes, please visit: [place] Diabetes Association (ADA): www.diabetes.org [employer] Association of Diabetes Care and Education Specialists [...] provider. Document Revised: 11/18/2021 Document Reviewed: 11/18/2021 [employer] Patient Education 2023 [employer]. 12/19/2024 06:38:26 Hypertension, Adult Hypertension, Adult [...] follow-up visits. This is important. Medicines Take pkfj-ymg-udrmtpz and prescription medicines only as told by [...] provider. Document Revised: 04/27/2022 Document Reviewed: 04/27/2022 [employer] Patient Education 2023 [employer]. 12/19/2024 06:38:25 Heart Failure, Self-Care Heart [...] when you have heart failure Medicines Take qrzj-zem-fxfhchq and prescription medicines only as told by [...] provider. Document Revised: 09/28/2022 Document Reviewed: 01/10/2021 [employer] Patient Education 2023 [employer]. Follow Up Care 09/12/2024 13:36:39 With:Nigel SMITH, HEEL COVER SOFTENER-Paris VILLATORO Address: [address] [place] [phone] When:Within 2 Week(s) Comments:chronic care [facility] Doc 06-18-2025 NotePatient Education Cardiovascular Hypertension, Adult High [...] one 12 oz bottle (more content not included)...[facility] Hospital Discharge instructions Patient Education [...] to any changes in your symptoms. Take ziyw-gpi-bvnofgy and prescription medicines only as told by [...] provider. Document Revised: 02/06/2022 Document Reviewed: 02/06/2022 [employer] Patient Education 2023 [employer]. 11/27/2024 17:34:19 Type 2 Diabetes Mellitus, [...] treat it right away. Always have a 79-fhuqxuefc-yhalol carbohydrate snack with you to treat low [...] you how to adjust your dosage. Take icfp-qzk-gwgivog and prescription medicines only as told by [...] your health care provider once every year. Lena your teeth and gums two times a [...] meet with a certified diabetes care and academy education director? Where can I find a support group for people with diabetes? Where to find more information For help and guidance and for more information about diabetes, please visit: [place] Diabetes Association (ADA): www.diabetes.org [employer] Association of Diabetes Care and Education Specialists [...] provider. Document Revised: 11/18/2021 Document Reviewed: 11/18/2021 [employer] Patient Education 2023 [employer]. 11/26/2024 10:15:58 Peripheral Edema Peripheral Edema [...] by your health care provider. Medicines Take iqsb-xxl-nhzfbmr and prescription medicines only as told by [...] provider. Document Revised: 02/22/2022 Document Reviewed: 02/22/2022 [employer] Patient Education 2023 [employer]. 11/26/2024 10:15:55 Health Risks of Smoking Health [...] Department of Health and Human Services: www.smokefree.gov [employer] Lung Association: www.freedomfromsmoking.org [employer] Heart Association: www.heart.org Where to find more [...] provider. Document Revised: 06/22/2022 Document Reviewed: 06/22/2022 [employer] Patient Education 2023 [employer]. Follow Up Care 11/12/2024 15:55:00 With:Nigel SMITH, HEEL COVER SOFTENER-DRAPERY HEMMER AUTOMATICParis Address: [address] [place] [phone] When: only if needed [facility] Medicine Doc 05-27-2025 NotePatient Education Endocrinology Type 2 Diabetes [...] treat it right away. Always have a 06-qfmwwuklm-wvvjst carbohydrate snack with you to treat low [...] how to adjust your dosage. ??? Take bwtf-gvw-civyaol and prescription medicines only as told by [...] of the week. ? (more content not included)...[facility]05-07-[facility] History of Present illness Narrative* Susu Moody - 11/07/2024 10:00 AM EDT BRENDA on CPAP machine * Coco Dean MD - 11/07/2024 10:00 AM EDT BARIATRIC SURGERY NEW PATIENT CONSULTATION HISTORY AND PHYSICAL Date: 11/07/2024 Time: 10:47 AM Name: Carmen Bledsoe PCP: Paris Rust Insurance: Payor: [facility] MEDICAID COMMUNITY PLAN / Plan: [facility] MEDICAID COMMUNITY PLAN / Product Type: [...] Health Provider for the 'psych eval - Neonatal Nurse Practitioner - Will obtain old medical records to [...] Minimally Invasive General Surgery documented in this [facility]03-12-2025 NotePatient Education Health Risks of Smoking Smoking [...] children increases the risk of: ??? Sudden syndrome (SIDS). ??? Infections in the nose, [...] of Health and Human Services: www.smokefree.gov ??? [employer] Lung Association: www.freedomfromsmoking.org ??? [place] Heart Association: www.heart.org Where to find more [...] Reviewed: 06/22/2022 Elsevier Patient Education ? 2023 [employer] Cardiovascular Hypertension, Adult High blood pressure [...] in high bloodpressure. What (more content not included)...[facility] Hospital Discharge instructions Patient Education [...] treat it right away. Always have a 95-zkankgbkw-vpewmc carbohydrate snack with you to treat low [...] you how to adjust your dosage. Take trkv-kfz-kmbiwrq and prescription medicines only as told by [...] your health care provider once every year. Lena your teeth and gums two times a [...] meet with a certified diabetes care and academy education director? Where can I find a support group for people with diabetes? Where to find more information For help and guidance and for more information about diabetes, please visit: [employer] Diabetes Association (ADA): www.diabetes.org [employer] Association of Diabetes Care and Education Specialists [...] provider. Document Revised: 11/18/2021 Document Reviewed: 11/18/2021 [employer] Patient Education 2023 [employer]. 08/29/2024 08:03:26 Hypertension, Adult Hypertension, Adult [...] follow-up visits. This is important. Medicines Take uooa-axd-bxizyii and prescription medicines only as told by [...] provider. Document Revised: 04/27/2022 Document Reviewed: 04/27/2022 [employer] Patient Education 2023 [employer]. 08/29/2024 08:03:25 High Cholesterol High Cholesterol [...] ask your health careprovider. General instructions Take bwdm-vjc-stgjahc and prescription medicines only as told by your health care provider. Keep all follow-up visits. This is important. Where to find more information [employer] Heart Association: www.heart.org National Heart, Lung, and Blood [place]: www.nhlbi.nih.gov Contact a health care provider if: [...] provider. Document Revised: 01/21/2023 Document Reviewed: 08/24/2021 [employer] Patient Education 2023 [employer]. Follow Up Care 02/22/2024 14:05:28 With:Nigel SMITH, HEEL COVER SOFTENER-IRVING, Paris Hamilton Address: [address] [place] [phone] When:Within 6 Month(s) Comments:chronic care [facility] [place] 02-26-2025 NotePatient Education Cardiovascular Hypertension, Adult High [...] one 12 oz bottle (more content not included)...[facility]01[facility] Hospital Discharge instructions Patient Education [...] for Disease Control and Prevention: cdc.gov National [place] on Alcohol Abuse and Alcoholism: niaaa.nih.gov Alcoholics [...] the National Suicide Prevention Lifeline at or 870. This is open 24 hours a day. Text the Crisis Text Line at 090779. Summary Alcohol misuse and dependence can have [...] provider. Document Revised: 08/25/2022 Document Reviewed: 08/25/2022 [employer] Patient Education 2023 [employer]. 07/18/2024 12:21:13 Type 2 Diabetes Mellitus, [...] treat it right away. Always have a 23-oukdaohns-kuysob carbohydrate snack with you to treat low [...] you how to adjust your dosage. Take ihht-gxv-viqtnzr and prescription medicines only as told by [...] your health care provider once every year. Lena your teeth and gums two times a [...] meet with a certified diabetes care and academy education director? Where can I find a support group for people with diabetes? Where to find more information For help and guidance and for more information about diabetes, please visit: [employer] Diabetes Association (ADA): www.diabetes.org [employer] Association of Diabetes Care and Education Specialists [...] provider. Document Revised: 11/18/2021 Document Reviewed: 11/18/2021 [employer] Patient Education 2023 [employer]. Follow Up Care 07/11/2024 12:07:33 With:Nigel SMITH, HEEL COVER SOFTENER-DRAPERY HEMMER AUTOMATIC, Paris Hamilton Address: [address] [place] [phone] When: only if needed Comments:keep next month appt [facility] Doc 01-15-2025 NotePatient Education Endocrinology Type 2 Diabetes [...] treat it right away. Always have a 89-uvqmwpbax-dnuije carbohydrate snack with you to treat low [...] how to adjust your dosage. ??? Take fkvy-qqu-fqrinxj and prescription medicines only as told by [...] of the week. ? (more content not included)...[facility]01-10-2025 NoteNurse Consultation Note Reason for [...] virus vaccine, inactivated 05/11/2022 Recorded SARS-CoV-2 (COVID-19) [id number] 05/11/2022 Recorded SARSCoV2 mRNA(mekmrjyel-sszu-eiuaps) vac 12/15/2021 Recorded SARS-CoV-2 (COVID-19) mRNA BNT-162b2 [...] vaccine 12/16/2017 Recorded diphtheria/pertussis, acel/tetanus adult 10/27/2014 [facility]ed[facility] NotePatient Education Infectious Disease Diarrhea, [...] oral rehydration solution (ORS). This is an uwhc-gsc-ifhhoqo medicine that helps returnyour body to its [...] drinks. ? Avoid alcohol. ??? Eat bland, aqnp-jn-yvnbwl foods in small amounts as you are able. These foods include bananas, applesauce, rice, lean meats, toast, and crackers. ??? Avoid spicy or fatty foods. Medicines ??? Take xjri-ezh-uzfdzgy and prescription medicines only as told by your health care provider. ??? If you were prescribed antibiotics, take them as told by your health care provider. Do not stopusing the antibiotic even if you start to feel better. General instructions ??? Wash your hands often using soap and water for at least 20 seconds. If soap and water are not available, use hand principal examiner. Others in the household should wash their [...] provider. Document Revised: 12/07/2022 Document Reviewed: 12/07/2022 Bagels [employer] Bean Patient Education ? 2023 [employer]. Mental and Behavioral Health Alcohol Misuse [...] friends and family. ??? (more content not included)...[facility]01-02-2025 Hospital Discharge instructions Follow Up Care 07/05/2024 08:14:42 With:nurse visit Address: When:2 to 3 days Comments:fasting labs With:Nigel SMITH, HEEL COVER SOFTENER-DRAPERY HEMMER [employer]OM[employer], [place] Hamilton Address: [address] [place] [phone] When:Within 1 Week(s) Comments:chronic care [facility] Doc 08-21-2024 Hospital Discharge instructions Patient Education 02/22/2024 [...] treat it right away. Always have a 96-uqntuwpmy-gwggyx carbohydrate snack with you to treat low [...] you how to adjust your dosage. Take ohxt-ehb-ysmvopf and prescription medicines only as told by [...] your health care provider once every year. Lena your teeth and gums two times a [...] meet with a certified diabetes care and academy education director? Where can I find a support group for people with diabetes? Where to find more information For help and guidance and for more information about diabetes, please visit: [place] Diabetes Association (ADA): www.diabetes.org [employer] Association of Diabetes Care and Education Specialists [...] provider. Document Revised: 11/18/2021 Document Reviewed: 11/18/2021 Bagels and Bean Patient Education 2022 [employer]. 02/22/2024 08:31:36 Mediterranean Diet Mediterranean Diet [...] fresh fruits and vegetables in-season from local [employer] markets. Buy plain frozen fruits and vegetables. [...] in common dishes like chili or lasagna. [place] with different cooking methods. Try roasting, broiling, [...] available, such as: ?Vegetable sticks with hummus. ?Chinese yogurt. ?Fruit and nut trail mix. Eat [...] Quinoa. Meats and other proteins Beans. Almonds. [place] seeds. [place] nuts. Peanuts. Cod. [place]. Scallops. Shrimp. Tuna. Tilapia. Clams. Oysters. Eggs. Poultry without skin. Dairy Low-fat milk. Cheese. Chinese yogurt. Fats and oils Extra-virgin olive oil. Avocado oil. Grapeseed oil. Beverages Water. Red wine. Herbal tea. Sweets and desserts Chinese yogurt with honey. Baked apples. Poached pears. [place] mix. Seasonings and condiments Basil. Cilantro. Coriander. [...] Fruit canned in syrup. Vegetables Deep-fried potatoes (dominican fries). Grains Prepackaged pasta or rice dishes. [...] provider. Document Revised: 07/25/2020 Document Reviewed: 05/22/2020 Bag[employer] Bean Patient Education 2022 [employer]. 02/22/2024 08:31:35 Hypertension, Adult Hypertension, Adult [...] follow-up visits. This is important. Medicines Take hhff-ugt-aznislp and prescription medicines only as told by [...] provider. Document Revised: 04/27/2022 Document Reviewed: 04/27/2022 [employer] Bean Patient Education 2022 [employer]. 02/22/2024 08:31:33 Health Risks of Smoking [...] Department of Health and Human Services: www.smokefree.gov Georg[place] Lung Association: www.freedomfromsmoking.org Georg[place] Heart Association: www.heart.org Where to find more [...] provider. Document Revised: 06/22/2022 Document Reviewed: 06/22/2022 Bagels and Bean Patient Education 2022 [employer]. Follow Up Care 11/25/2023 14:56:18 With:Nigel SMITH, HEEL COVER SOFTENER-IRVING, [place] Hamilton Address: [address] [place] [phone] When:Within 6 Month(s) Comments:chronic care [facility] Medicine Doc 08-21-2024 NotePatient Education Cardiovascular Hypertension, Adult High [...] not included)...[place] [facility]06-24-2024 Note [id number] [facility] 12-23-2023 Hospital Discharge instructions Patient Education 12/23/2023 13:17:05 Colonoscopy, Care After Surgery Salam (CUSTOM) Colonoscopy Care After Surgery Please read the instructions outlined below and refer to this sheet in the next few weeks. These discharge instructions provide you with general information on caring for yourself after you leave thehospital. Your doctor may also give you specific [...] Care 11/02/2023 11:19:36 With:Marjan SAMPSON, KAMALJIT Rosa, [facility] Address: [address] [place] [address], [address] [phone] When: Unknown Comments:Call Office in 2 weeks for results or follow-up Appt. [facility]06-21-2024 Evaluation + Plan noteExtracted from: Title:ANES Post-operative Note---GeneralAuthor:Zaid Benz MDDate:12/23/23 Plan Transfer/Discharge: Transfer/Discharge Discharge when meets criteria ( To home ). Extracted from:Title:ANES Pre-operative Note uthor:Zaid Benz MDDate: 12/23/23 Plan [place] Society of Anesthesiologists (ASA) physical status classification: Class III. Anesthetic Preoperative Plan: Anesthesia General. Future Appointments Appointment Date:01/27/2024 10:00:00 AM Scheduled Provider:Walker Phillip MD [place] Appointment Type:BADH Follow Up Appointment Date:02/22/2024 01:20:00 PM Scheduled Provider:Nigel SMITH, HEEL COVER SOFTENER-DRAPERY HEMMER [employer], [place] Hamilton Location:[facility] Doc Appointment Type:FM Open Appointment Date:06/05/2024 01:00:00 PM Scheduled Provider:Alirio Ramirez MD [facility] [place] App[facility] Type:Cardiology Follow Up (FT) Future Scheduled Tests Laboratory* Hep B Core Ab, Tot 11/02/23 * Limmz-5-Iczejhmphot 11/02/23 * B-Type Natriuretic Peptide 10/25/23 * [...] * Iron Level 11/02/23 * PT 11/02/23 [facility]05-23-2024 Hospital Discharge instructions Patient Education 11/24/2023 [...] asked to follow these instructions. Medicines Take mwtm-syd-nqxqaop and prescription medicines only as told by your health care provider. Do not start taking any new medicine unless your health care provider has approved. These include gisx-bkc-djmfyuw medicines, vitamins, herbs, and supplements. Some of [...] provider. Document Revised: 05/19/2022 Document Reviewed: 05/19/2022 [employer] Bean Patient Education 2022 [employer]. 11/24/2023 19:09:12 Hepatomegaly Hepatomegaly Hepatomegaly is [...] asked to follow these instructions. Medicines Take drfr-zvk-qrcbzzc and prescription medicines only as told by your health care provider. Do not start taking any new medicine unless your health care provider has approved. These include gluu-vax-gxdbkoo medicines, vitamins, herbs, and supplements. Some of [...] provider. Document Revised: 05/19/2022 Document Reviewed: 05/19/2022 [employer] Bean Patient Education 2022 [employer]. 11/24/2023 19:09:07 Type 2 Diabetes Mellitus, [...] treat it right away. Always have a 07-rfgxvxcrh-gjmbyf carbohydrate snack with you to treat low [...] you how to adjust your dosage. Take yrzn-vxo-slhixap and prescription medicines only as told by [...] your health care provider once every year. Lena your teeth and gums two times a [...] meet with a certified diabetes care and academy education director? Where can I find a support group for people with diabetes? Where to find more information For help and guidance and for more information about diabetes, please visit: [place] Diabetes Association (ADA): www.diabetes.org Georg[employer] Association of Diabetes Care and Education Specialists [...] provider. Document Revised: 11/18/2021 Document Reviewed: 11/18/2021 [employer] Bean Patient Education 2022 [employer]. 11/24/2023 19:09:06 Mediterranean Diet Mediterranean Diet [...] in common dishes like chili or lasagna. [place] with different cooking methods. Try roasting, broiling, [...] available, such as: ?Vegetable sticks with hummus. ?Chinese yogurt. ?Fruit and nut trail mix. Eat [...] Quinoa. Meats and other proteins Beans. Almonds. [place] seeds. [place] nuts. Peanuts. Cod. [place]. Scallops. Shrimp. Tuna. Tilapia. Clams. Oysters. Eggs. Poultry without skin. Dairy Low-fat milk. Cheese. Chinese yogurt. Fats and oils Extra-virgin olive oil. Avocado oil. Grapeseed oil. Beverages Water. Red wine. Herbal tea. Sweets and desserts Chinese yogurt with honey. Baked apples. Poached pears. [place] mix. Seasonings and condiments Basil. Cilantro. Coriander. [...] Fruit canned in syrup. Vegetables Deep-fried potatoes (dominican fries). Grains Prepackaged pasta or rice dishes. [...] provider. Document Revised: 07/25/2020 Document Reviewed: 05/22/2020 [employer] Bean Patient Education 2022 [employer]. Follow Up Care 10/26/2023 14:06:56 With:Nigel SMITH, HEEL COVER SOFTENER-DRAPERY HEMMER [employer], [place] Hamilton Address: [address] [place] [phone] When:Within 3 Month(s) Comments:chronic care [facility] [place] 05-09-2024 NoteEchocardiology Procedure Exam Date/Time Accession # Ordering Echo Transthoracic 11/08/2023 15:28 EDT [id number] Adam SAMPSON, Alirio Hooper CPT code 30859 [id number] Reason for Exam (Echo Transthoracic Complete) I50.30;Other (please specify) Report [place] [id number] Adult Echocardiogram Report Name: CARMEN BLEDSOE Study Date: 11/08/2023 02:50 PM BP: 128/85 mmHg Patient Location: CD:[id number] [facility] HR: 66 : 1960 Gender: Female Height: 6 in Age: 62 yrs Ethnicity: [facility] Weight: 328 lb Reason For [...] Report Med Peak E' Jairon: 7.7 cm/sec FLVAIA(I,D): 5.8 cm2 E/E' Med: 9.0 FLAVIA(V,D): 5.1 cm2 SV(LVOT): 142.7 ml AV VR: 0.64 FLAVIA(VTI)/BSA_phl: 13.4 FINAL REPORT Dictated: 11/08/2023 2:50 pm Alirio Ramirez MD Signed (Electronic Signature): 11/10/2023 10:36 am Signed by: Alirio Ramirez MD Transcribed by: [facility] Technologist: [facility]04-24-2024 Hospital Discharge instructions Patient Education 10/26/2023 [...] by your health care provider. Medicines Take ghdi-wws-ehusrai and prescription medicines only as told by [...] provider. Document Revised: 02/22/2022 Document Reviewed: 02/22/2022 [employer] Bean Patient Education 2022 [employer]. 10/26/2023 08:53:45 Heart Failure, Self-Care Heart [...] when you have heart failure Medicines Take hbdi-dws-wlapfpr and prescription medicines only as told by [...] provider. Document Revised: 09/28/2022 Document Reviewed: 01/10/2021 [employer] Bean Patient Education 2022 [employer]. 10/26/2023 08:53:36 DASH Eating Plan DASH [...] Dairy Whole or 2% milk, cream, and kvzn-fjc-mqbn. Whole or full-fat cream cheese. Whole-fat or [...] more information National Heart, Lung, and Blood [place]: www.nhlbi.nih.gov [place] Heart Association: www.heart.org Academy of Nutrition and [...] provider. Document Revised: 05/23/2020 Document Reviewed: 05/23/2020 [employer] Patient Education 2022 [employer]. Follow Up Care 10/11/2023 15:08:26 With:Nigel SMITH, HEEL COVER SOFTENER-DRAPERY HEMMER [employer], [place] Hamilton Address: [address] [place] [phone] When:Within 1 Month(s) [facility] [place] 04-08-2024 Hospital Discharge instructions Patient Education 10/10/2023 [...] treat it right away. Always have a 08-pwhlrbmoy-eoxpad carbohydrate snack with you to treat low [...] you how to adjust your dosage. Take fdbs-lco-ogsdtyj and prescription medicines only as told by [...] your health care provider once every year. Lena your teeth and gums two times a [...] meet with a certified diabetes care and academy education director? Where can I find a support group for people with diabetes? Where to find more information For help and guidance and for more information about diabetes, please visit: [place] Diabetes Association (ADA): www.diabetes.org [employer] Association of Diabetes Care and Education Specialists [...] provider. Document Revised: 11/18/2021 Document Reviewed: 11/18/2021 [employer] Bean Patient Education 2022 [employer]. 10/10/2023 07:17:21 Heart Failure Exacerbation Heart [...] Follow these instructions at home: Medicines Take brxx-duw-dpsyqlk and prescription medicines only as told by your health care provider. Do not stop taking your medicines or change the amount you take. If you are having problems or sideeffects from your medicines, talk to your health care provider. If you are having difficulty paying for your medicines, contact a social services aide or your clinic. There are many programs [...] provider. Document Revised: 09/28/2022 Document Reviewed: 01/10/2021 [employer] Bean Patient Education 2022 [employer]. Follow Up Care 10/07/2023 10:35:27 With:Nigel SMITH, HEEL COVER SOFTENER-DRAPERY HEMMER AUTOMAT[employer], [place] Hamilton Address: [address] [place] [phone] When:Within 2 Week(s) Comments:chronic care [facility] Doc 02-07-2024 Evaluation + Plan note Diagnostic Tests Pending * CBC w/ Auto Diff 08/10/23 * Comprehensive Metabolic Panel 08/10/23 * HgbA1c 08/10/23 * Lipid Panel 08/10/23 * Microalbumin Level Urine 08/10/23 * D-Dimer 08/10/23 Future Scheduled Tests Laboratory* Vitamin D 25 Hydroxy 10/13/22 * Creatine Kinase 10/13/22 Radiology* US LE Venous Duplex Insufficiency Bilat 10/13/22 [facility] [place] 02-06-2024 Hospital Discharge instructions Patient Education 08/09/2023 [...] pray, or go to a place of taoist. Do some deep breathing. To do this, [...] sugars, or salt (sodium). General instructions Take sinv-tlx-tbsrriq and prescription medicines only as told by [...] (ADAA): www.adaa.org Mental Health [place]: www.mentalhealthamerica.net National [place] on Mental Illness: www.param.org Contact a health [...] department or: Call your local emergency services (262 in the [place] Call a suicide crisis helpline, such as the National Suicide Prevention Lifeline at or 954 in the [place]. This is open 24 hours a day in the [place] Text the Crisis Text Line at 281837 (in the [place] Summary If you are [...] provider. Document Revised: 01/13/2022 Document Reviewed: 04/30/2020 Bag[employer] and Bean Patient Education 2022 [employer]. 08/09/2023 20:20:14 Hypertension, Adult Hypertension, Adult [...] follow-up visits. This is important. Medicines Take sask-yya-sirftrp and prescription medicines only as told by [...] provider. Document Revised: 04/27/2022 Document Reviewed: 04/27/2022 Bagels and Bean Patient Education 2022 [employer] 08/09/2023 20:20:10 Type 2 Diabetes Mellitus, Self-Care, [...] treat it right away. Always have a 03-itsszlnsj-dlgcep carbohydrate snack with you to treat low [...] you how to adjust your dosage. Take sgna-qyv-xwovcoi and prescription medicines only as told by [...] your health care provider once every year. Lena your teeth and gums two times a [...] meet with a certified diabetes care and academy education director? Where can I find a support group for people with diabetes? Where to find more information For help and guidance and for more information about diabetes, please visit: [place] Diabetes Association (ADA): www.diabetes.org [place] Association of Diabetes Care and Education Specialists [...] provider. Document Revised: 11/18/2021 Document Reviewed: 11/18/2021 [employer] Bean Patient Education 2022 [employer]. 08/09/2023 20:20:09 Health Risks of Smoking [...] Department of Health and Human Services: www.smokefree.gov [employer] Lung Association: www.freedomfromsmoking.org Georg[place] Heart Association: www.heart.org Where to find more [...] provider. Document Revised: 06/22/2022 Document Reviewed: 06/22/2022 Bagels and Bean Patient Education 2022 [employer]. 08/09/2023 20:20:08 DASH Eating Plan DASH [...] Dairy Whole or 2% milk, cream, and mxmf-yna-unsu. Whole or full-fat cream cheese. Whole-fat or [...] more information National Heart, Lung, and Blood [place]: www.nhlbi.nih.gov [place] Heart Association: www.heart.org Academy of Nutrition and [...] provider. Document Revised: 05/23/2020 Document Reviewed: 05/23/2020 [employer] Bean Patient Education 2022 [employer]. Follow Up Care 11/26/2022 13:53:51 With:Nigel SMITH, HEEL COVER SOFTENER-DRAPERY HEMMER AUTOMATICParis Address: [address] [place] [phone] When:Within 6 Month(s) Comments:chronic care [facility] 01-18-2024 History of Present illness Narrative* Arlene Zuñiga - 07/21/2023 10:30 AM EST Occupational Therapy [facility] Date: 07/21/2023 Patient Name: Carmen Bledsoe : 1960 Pt Cancelled Appt due to left voice mail with no reason for cancel. Arlene Zuñiga Date: 07/21/2023 [facility] History of Present illness Narrative* Lisseth Luu - 07/20/2023 3:00 PM EST Physical Therapy [facility] Date: 07/20/2023 Patient Name: Carmen Bledsoe DOB: 1960 Patient called to cancel Appt., did not state a reason for cancellation. Lisseth Luu Date: 07/20/2023 [facility] History of Present illness Narrative* Lisseth Luu - 07/14/2023 10:30 AM EST Physical Therapy [facility] Date: 07/14/2023 Patient Name: Carmen Bledsoe DOB: 1960 Patient called to cancel, did not give a reason. She said she will be at her next scheduled appointment on 07/19/23. Lisseth Luu Date: 07/14/2023 [facility] History of Present illness Narrative* Arlene Zuñiga - 07/08/2023 1:30 PM EST Occupational Therapy [facility] Date: 07/08/2023 Patient Name: Caremn Bledsoe DOB: 1960 Pt Cancelled Appt due to no reason for cancel. Arlene Zuñiga Date: 07/08/2023 [facility] History of Present illness Narrative* Negra, Fariba Sepulveda - 07/06/2023 10:30 AM EST Physical Therapy [facility] Date: 07/06/2023 Patient Name: Carmen Bledsoe : 1960 Patient is not able to a make this appointment, she rescheduled for tomorrow. Fariba Sepulveda Shock Date: 07/06/2023 [facility] Hospital Discharge instructions Patient Education 05/09/2023 [...] back becomes more flexible: 1.Get into a qrasr-tox-spbqg position on a firm bed or the [...] provider. Document Revised: 12/15/2021 Document Reviewed: 09/02/2021 [employer] Bean Patient Education 2022 [employer] Follow Up Care 05/06/2023 08:05:37 With:Ansley Carrero PA-C Address: [address] [place] [address] [place] [phone] When: only if needed Comments:Only if needed [facility] Doc 10-23-2023 Hospital Discharge instructions Patient Education 04/25/2023 [...] Follow these instructions at home: Medicines Take cfgy-hwl-syrkvze and prescription medicines only as told by your health care provider. Ask your health care provider if the medicine prescribed to you: ?Requires you to avoid driving or using heavy machinery. ?Can cause constipation. You may need to take these actions to prevent or treat constipation: ?Drink enough fluid to keep your urine pale yellow. ?Take nuxl-mpq-bhfrqhn or prescription medicines. ?Eat foods that are [...] provider. Document Revised: 07/09/2019 Document Reviewed: 07/09/2019 [employer] Bean Patient Education 2022 [employer] 04/25/2023 19:33:56 Back Exercises Back Exercises The [...] back becomes more flexible: 1.Get into a grrzq-ekh-ohktt position on a firm bed or the [...] provider. Document Revised: 12/15/2021 Document Reviewed: 09/02/2021 [employer] Bean Patient Education 2022 [employer]. Follow Up Care 04/21/2023 13:02:20 With:Nigel SMITH, HEEL COVER SOFTENER-DRAPERY HEMMER AUT[employer], [place] Hamilton Address: [address] [place] [phone] When: only if needed [facility] [place] 09-14-2023 Hospital Discharge instructions Patient Education 03/17/2023 [...] treat it right away. Always have a 70-dleboqfzf-hjgnmg carbohydrate snack with you to treat low [...] you how to adjust your dosage. Take dbif-bfc-nuqgudg and prescription medicines only as told by [...] your health care provider once every year. Lena your teeth and gums two times a [...] meet with a certified diabetes care and academy education director? Where can I find a support group for people with diabetes? Where to find more information For help and guidance and for more information about diabetes, please visit: [place] Diabetes Association (ADA): www.diabetes.org [place] Association of Diabetes Care and Education Specialists [...] provider. Document Revised: 11/18/2021 Document Reviewed: 11/18/2021 [employer] Patient Education 2022 [employer]. 03/17/2023 14:42:58 DASH Eating Plan DASH [...] Dairy Whole or 2% milk, cream, and yyvq-zhd-mazb. Whole or full-fat cream cheese. Whole-fat or [...] more information National Heart, Lung, and Blood [place]: www.nhlbi.nih.gov [employer] Heart Association: www.heart.org Academy of Nutrition and [...] provider. Document Revised: 05/23/2020 Document Reviewed: 05/23/2020 [employer] Patient Education 2022 [employer]. 03/17/2023 14:42:56 Insomnia Insomnia Insomnia is [...] go back to bed. General instructions Take zorq-phq-kihwrmu and prescription medicines only as told by [...] the National Suicide Prevention Lifeline at or 242. This is open 24 hours a day. Text the Crisis Text Line at 034614. Summary Insomnia is a sleep disorder that [...] provider. Document Revised: 05/31/2022 Document Reviewed: 05/31/2022 [employer] Patient Education 2022 [employer]. Follow Up Care 03/15/2023 07:59:17 With:Nigel SMITH, HEEL COVER SOFTENER-DRAPERY HEMMER [employer], [place] Hamilton Address: [address] [place] [phone] When: only if needed Comments:keep may appt, fax sleep study to [facility] [place] 05-25-2023 Hospital Discharge instructions Patient Education 11/25/2022 [...] cheese. Low-sodium cottage cheese. Fats and oils [place], canola, soybean, flaxseed, avocado, or sunflower oil. Sweets and desserts Applesauce. Granola bars. Sugar-free pudding and gelatin. Frozen fruit bars. Seasoning and other foods Fresh and dried herbs. Lemon or ho-chunk juice. Vinegar. Low-sodium ketchup. Salt- free marinades, saladdressings, sauces, and seasonings. The items listed above may not be a complete list of foods and beverages you can eat. Contact a dietitian for more information. Foods to avoid Fruits Fruits that are dried with sodium-containing preservatives. Vegetables Canned vegetables. Frozen vegetables with sauce or seasonings. Creamed vegetables. Filipino fries. Onion rings. Pickled vegetables and sauerkraut. [...] Salted nuts and seeds. Dairy Whole milk, kxpe-ipd-avek, and cream. Buttermilk. Processed cheese, cheese spreads, [...] and bouillon cubes. Horseradish, ketchup, and mustard. Carney Hospitaltershire sauce. Teriyaki sauce, soy sauce (including [...] provider. Document Revised: 02/02/2021 Document Reviewed: 02/02/2021 [employer] Patient Education 2022 [employer]. 11/25/2022 15:14:21 DASH Eating Plan DASH [...] Dairy Whole or 2% milk, cream, and wlqc-xjv-sedo. Whole or full-fat cream cheese. Whole-fat or [...] more information National Heart, Lung, and Blood [place]: www.nhlbi.nih.gov [employer] Heart Association: www.heart.org Academy of Nutrition and [...] provider. Document Revised: 05/23/2020 Document Reviewed: 05/23/2020 [employer] Patient Education 2022 [employer]. Follow Up Care 11/10/2022 07:47:50 With:Nigel SMITH, HEEL COVER SOFTENER-[place] VILLATORO Address: [address] [place] [phone] When:Within 6 Month(s) Comments:chronic care [facility] Doc 04-12-2023 Hospital Discharge instructions Patient Education 10/13/2022 [...] when you have heart failure Medicines Take xiso-zkc-erfnoec and prescription medicines only as told by [...] 10/03/2019 Document Revised: 10/02/2019 Document Reviewed: 10/03/2019 Bagels and Bean Patient Education 2020 [employer]. 10/13/2022 08:14:26 Heart Failure Medicines Heart [...] 11/04/2017 Document Revised: 07/05/2018 Document Reviewed: 11/04/2017 [employer] Patient Education 2020 [employer]. 10/13/2022 08:14:22 Heart Failure Eating Plan [...] and working with a diet and nutrition worker (dietitian)to choose the right foods may help [...] cheese. Low-sodium cottage cheese. Fats and oils [place], canola, soybean, flaxseed, or sunflower oil. Avocado. Sweets and desserts Apple sauce. Granola bars. Sugar-free pudding and gelatin. Frozen fruit bars. Seasoning and other foods Fresh and dried herbs. Lemon or ho-chunk juice. Vinegar. Low-sodium ketchup. Salt- free marinades, [...] vegetables with sauce or seasonings. Creamed vegetables. Filipino fries. Onion rings. Pickled vegetables and sauerkraut. [...] Salted nuts and seeds. Dairy Whole milk, emku-bmd-hhfe, and cream. Buttermilk. Processed cheese, cheese spreads, [...] 11/04/2017 Document Revised: 08/16/2019 Document Reviewed: 11/04/2017 [employer] Patient Education 2020 [employer] 10/13/2022 08:14:21 Heart Failure and Exercise [...] 11/01/2017 Document Revised: 11/04/2017 Document Reviewed: 11/01/2017 [employer] Patient Education 2020 [employer] 10/13/2022 08:14:18 Form - Daily Weight [...] With:Carmen Haley DO Address: When:Within 1 Month(s) [facility]03-29-2023 Hospital Discharge instructions Patient Education 09/29/2022 [...] require a prescription and some youcan purchase imnt-loa-eafxgxz. Medicines may have nicotine in them to [...] 06/14/2002 Document Revised: 09/07/2019 Document Reviewed: 09/08/2019 [employer] Patient Education 2020 [employer]. 09/29/2022 12:38:01 Heart Failure Eating Plan [...] and working with a diet and nutrition worker (dietitian)to choose the right foods may help [...] cheese. Low-sodium cottage cheese. Fats and oils [place], canola, soybean, flaxseed, or sunflower oil. Avocado. Sweets and desserts Apple sauce. Granola bars. Sugar-free pudding and gelatin. Frozen fruit bars. Seasoning and other foods Fresh and dried herbs. Lemon or ho-chunk juice. Vinegar. Low-sodium ketchup. Salt- free marinades, [...] vegetables with sauce or seasonings. Creamed vegetables. Filipino fries. Onion rings. Pickled vegetables and sauerkraut. [...] Salted nuts and seeds. Dairy Whole milk, kjue-ulf-hqhk, and cream. Buttermilk. Processed cheese, cheese spreads, [...] Horseradish, ketchup, and mustard. [facility] sauce. Teriyaki sauce, soy sauce (including reduced [...] 11/04/2017 Document Revised: 08/16/2019 Document Reviewed: 11/04/2017 [employer] Patient Education 2020 [employer] 09/29/2022 12:37:57 Form - Daily Weight [...] With:Carmen Haley DO Address: When:Within 2 Week(s) [facility]03-24-2023 Hospital Discharge instructions Patient Education 09/24/2022 [...] 06/22/2004 Document Revised: 04/13/2019 Document Reviewed: 11/29/2016 [employer] Patient Education 2020 [employer]. Follow Up Care 09/13/2022 14:16:08 With:Nigel SMITH, HEEL COVER SO[employer], Paris Hamilton Address: [address] [place] [phone] When: Unknown Comments:see nurse for Dr Haley's lab Tuesday. Next primary care visit in November [facility] [place] 03-22-2023 Hospital Discharge instructions Patient Education 09/22/2022 [...] 06/20/2006 Document Revised: 09/07/2019 Document Reviewed: 09/07/2019 [employer] Patient Education 2020 [employer]. 09/22/2022 09:54:51 Heart Failure Medicines Heart [...] 11/04/2017 Document Revised: 07/05/2018 Document Reviewed: 11/04/2017 [employer] Bean Patient Education 2020 [employer]. 09/22/2022 09:54:49 Heart Failure Eating Plan [...] and working with a diet and nutrition worker (dietitian)to choose the right foods may help [...] cheese. Low-sodium cottage cheese. Fats and oils [place], canola, soybean, flaxseed, or sunflower oil. Avocado. Sweets and desserts Apple sauce. Granola bars. Sugar-free pudding and gelatin. Frozen fruit bars. Seasoning and other foods Fresh and dried herbs. Lemon or ho-chunk juice. Vinegar. Low-sodium ketchup. Salt- free marinades, [...] vegetables with sauce or seasonings. Creamed vegetables. Filipino fries. Onion rings. Pickled vegetables and sauerkraut. [...] Salted nuts and seeds. Dairy Whole milk, lxjo-spt-sxdb, and cream. Buttermilk. Processed cheese, cheese spreads, [...] 11/04/2017 Document Revised: 08/16/2019 Document Reviewed: 11/04/2017 [employer] Patient Education 2019 [employer]. 09/22/2022 09:54:44 Heart Failure Action Plan [...] symptoms. Follow these instructions at home: Take adoq-tyh-oygswdg and prescription medicines only as told by your health care provider. Weigh yourself daily. Your target weight is lb ( kg). ?Call your health care provider if you gain more than lb ( kg) in a day, or more than lb ( kg) in one week. Eat a heart-healthy diet. Work with a diet and nutrition worker (dietitian) to create an eatingplan that is best for you. Keep all follow-up visits as told by your health care provider. This is important. Where to find more information [employer]: www.heart.org Summary Follow the action [...] 07/30/2017 Document Revised: 06/02/2018 Document Reviewed: 07/30/2017 [employer] Bean Patient Education 2020 [employer]. 09/22/2022 09:53:36 Pulmonary Edema Pulmonary Edema Pulmonary [...] Follow these instructions at home: Medicines Take gdnl-nrn-vuhbdbw and prescription medicines only as told by [...] infections or injury to the lungs. Take sznl-kyc-fsmkxnp and prescription medicines only as told by your health care provider. This information is not intended to replace advice given to you by your health care provider. Make sure you discuss any questions you have with your health care provider. Document Released: 09/10/2003 Document Revised: 06/02/2018 Document Reviewed: 08/31/2017 [employer] Patient Education 2020 [employer]. 09/22/2022 09:53:16 Steps to Quit Smoking [...] require a prescription and some youcan purchase riwq-aih-tecygvs. Medicines may have nicotine in them to [...] 06/14/2002 Document Revised: 09/07/2019 Document Reviewed: 09/08/2019 [employer] Bean Patient Education 2019 [employer]. 09/22/2022 09:53:10 Health Risks of Smoking [...] these methods. Where to find more information [employer]: www.lung.org [employer]: www.cancer.org Summary Smoking cigarettes is [...] 07/28/2005 Document Revised: 09/21/2018 Document Reviewed: 06/24/2017 Bag[employer] and Bean Patient Education 2020 [employer]. 09/22/2022 09:52:53 Cooking With Less Salt Cooking With Less Salt Cooking with less salt is one way to reduce the amount of sodium you get from food. Depending on your condition and overall health, your health care provider or diet and nutrition worker (dietitian) may recommend that you reduce your [...] foods. Use sodium-free baking soda when baking. [place], braise, or roast foods to add flavor [...] foods you can pair it with. Herbs [place] leaves Soups, meat and vegetable dishes, and spaghetti sauce. Basil Taiwanese dishes, soups, pasta, and fish dishes. Cilantro Meat, poultry, and vegetable dishes. [place] powder Marinades and Ghanaian dishes. Chives Salad dressings and potato dishes. Cumin Ghanaian dishes, couscous, and meat dishes. Dill Fish dishes, sauces, and salads. Fennel Meat and vegetable dishes, breads, and cookies. Garlic (do not use garlic salt) Taiwanese dishes, meat dishes, salad dressings, and sauces. Marjoram Soups, potato dishes, and meat dishes. Oregano Pizza and spaghetti sauce. Parsley Salads, soups, pasta, and meat dishes. Zakia Taiwanese dishes, salad dressings, soups, and red meats. [...] and low-sodium cheeses. Good cheese choices include [place], [place] K[place], and mozzarella. Always check the label [...] 06/20/2006 Document Revised: 06/02/2018 Document Reviewed: 06/28/2017 [employer] Patient Education 2020 [employer]. 09/22/2022 09:52:44 BMI for Adults BMI [...] height. This can be done either in [place]e (U.S[place] or metric measurements. Note that charts are available to help you find your BMI quickly and easily without having to do these calculations yourself. To calculate your BMI in [place]e ([place] measurements, your health care provider will: [...] medical problems. BMI can be measured using Gabonese measurements or metric measurements. To interpret your [...] 03/01/2005 Document Revised: 06/02/2018 Document Reviewed: 05/03/2018 [employer] Bean Patient Education 2020 [employer]. Follow Up Care 09/17/2022 09:26:53 With:Carmen Haley DO Address: When:09/29/2022 [facility]03-13-2023 Progress note Author José [facility] September 13, 2022 9:31pmNote Date/TimeMarch 2022 9:[place] [address] Hospitalist Progress Note Signed Patient: Carmen Bledsoe MR#: [id number] : 1960 Acct:[id number] Age/Sex: 61 / F Adm Date: 3 Loc: 4P Room: [address] [place] [address] Type: ADM IN Attending Dr: José Sanchez MD Copies to: ~ Date of Service: 09/13/2022 Subjective Subjective Narrative: Patient seen and examined. Per RN patient required Ativan couple hours ago based on CIWA scale. Sheappears anxious but denies any other withdrawal symptoms. [...] <Electronically signed by José Sanchez MD> 09/13/222130 [facility] Work Phone: 1(172) 790-628603-12-2023 Progress note Author Marilyn Sun [facility] September 12, 2022 12:22pmNote Date/TimeMarch 2022 12:13[place] [address] Hospitalist Progress Note Signed Patient: Carmen Bledsoe MR#: [id number] : 1960 Acct:[id number] Age/Sex: 61 / F Adm Date: 3 Loc: Room: [address] [place] [address] Type: ADM IN Attending Dr: Marilyn Sun [...] able to answer questions andstates that she isfeeling better. 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 Low threshold for ICU if showing any signs of DTs. Marilyn Escobedo MD Internal Medicine Hospitalist Attending Physician Documented By: Marilyn Sun MD 09/12/22 12 11 Signed By: <Electronically signed by Marilyn Sun MD> 09/12/22 1222 [facility] Work Phone: 1(782) 181-124503-11-2023 History and physical note Author Marilyn Sun [facility] September 11, 2022 11:38amNote Date/TimeMarch 2022 1:36pm[place] [address] Hospitalist H&P Signed with Addenda Patient: Carmen Bledsoe MR#: [id number] : 1960 Acct:[id number] Age/Sex: 61 / F Adm Date: 3 Loc: 4N Room: [address] [place] [address] Type: ADM IN Attending Dr: Marilyn Sun [...] Addendum Documented By: Marilyn Sun MD 09/10/22 1532 Addendum Signed By: <Electronically signed by Marilyn Sun MD> 09/10/22 0709 HPI DATE OF EXAMINATION: 09/10/22 CHIEF COMPLAINT: [...] few days with yellow sputum. Denies any feveror chills. She does report history of COPD, had PFT and was told she has COPD. she admits smoking 1/2 pack daily for many years. Patient also has BRENDA and uses by CPAP at night. In the ER, patient wasfound with significant lower extremities swelling as well as shortness of breath with desaturation upon minimal exertion. She was placed on oxygen supplements with improvement in saturation. Decisionwas made to admit for further evaluation and [...] 11:26 RDW 17.5 % (11.9-15.3) H 09/10/22 11: Plt Count 180 x10E3/uL (150-450) 09/10/22 11: MPV 7.2 fl (6.3-10.7) 09/10/22 11:26 Neut % (Auto) 70.7 % (.) 09/10/22 11: Lymph % (Auto) 21.5 % (.) 09/10/22 11:26 [place] % (Auto) 5.1 % (.) 09/10/22 11:26 Eos % (Auto) 1.6 % (.) 09/10/22 11: Baso % (Auto) 1.1 % (.) 09/10/22 11: Nucleat RBC Rel Count 0.3 /100 WBC (0-0.5) 09/10/22 11: Neut # (Auto) 3.7 x10E3/uL (1.8-7.7) 09/10/22 11: Lymph # (Auto) 1.1 x10E3/uL (1.00-4.8) 09/10/22 11:26 [place] # (Auto) 0.3 x10E3/uL (0.0-0.8) 09/10/22 11: Eos # (Auto) 0.1 x10E3/uL (0.0-0.45) 09/10/22 11: Baso # (Auto) 0.1 x10E3/uL (0.0-0.2) 09/10/22 11: Monocyte Dist Width 18.14 % (0.00-20.00) 09/10/22 11: PT 11.8 Seconds (9.0-12.9) 09/10/22 11: INR 1.0 09/10/22 11: APTT 31.2 Seconds (25.1-36.5) 09/10/22 11:26 PHA Creatinine Clear 109.50 09/10/22 11:26 Sodium 137 mmol/L (136-145) 09/10/22 11: Potassium 4.7 mmol/L (3.5-5.1) 09/10/22 11: Chloride 99 mmol/L (98-107) 09/10/22 11: Carbon Dioxide 29.0 mmol/L (21.0-31.0) 09/10/22 11:26 [...] bedside. All questions answered. In agreement with the[facility] health plan -Based on my assessment and evaluation [...] <Electronically signed by Marilyn Sun MD> 09/10/22 1542 [facility] Work Phone: 1(996) 434-150403-11-2023 Progress note Author Marilyn Sun [facility] September 11, 2022 11:36amNote Date/TimeMarch 2022 11:07[place] [address] Hospitalist Progress Note Signed Patient: Carmen Bledsoe MR#: [id number] : 1960 Acct:[id number] Age/Sex: 61 / F Adm Date: 3 Loc: 4N Room: 7Y1174-6 Type: ADM IN Attending Dr: Marilyn Sun [...] Capsule PO 03/10/23 08:59 50 mg TID BRISIEDA Administration Dextrose 0 gm 09/10/22 13:38 Dextrose [...] agreement with the plan. Will transfer to [facility] for now. Marilyn Escobedo MD Internal Medicine Hospitalist Attending Physician Documented By: Marilyn Sun MD 09/11/22 11 04 Signed By: <Electronically signed by Marilyn Sun MD> 09/11/22 9663 [facility] Work Phone: 1(268) 946-180803-06-2023 Hospital Discharge instructions Patient Education 09/06/2022 12:23:58 [...] hospital. Follow these instructions at home: Take hwbp-vdd-dbufkou and prescription medicines only as told by [...] cantaloupe, kiwi, oranges, tomatoes, asparagus, and potatoes. ?[place] juice. ?Tomato juice. ?Red meats. ?Yogurt. Keep [...] 06/20/2006 Document Revised: 01/31/2019 Document Reviewed: 01/31/2019 [employer] Patient Education 2020 [employer]. Follow Up Care 08/23/2022 15:13:00 With:Nigel SMITH, HEEL COVER SO[employer]ENER[employer], [place] Jeannette. Address: [address] [place] [phone] When: Unknown Comments:telephone result to maribel. See referrals [facility] Doc 02-09-2023 Hospital Discharge instructions Patient Education 08/12/2022 [...] plan? Your health care provider or certified professional midwife can help you make a plan for [...] stress. Your health care provider or certified professional midwife can help you make a plan for [...] 09/09/2004 Document Revised: 01/12/2018 Document Reviewed: 11/29/2016 [employer] Patient Education 2020 [employer]. Follow Up Care 08/12/2022 10:06:58 With:Nigle SMITH, HEEL COVER SO[employer], Paris Hamilton Address: [address] [place] [phone] When: Unknown Comments:Echo order for Doc. Telephone result to patient [facility] Doc 06-29-2022 Hospital Discharge instructions Patient Education 12/30/2021 [...] of hard liquor (1 oz). Medicines Take egom-fak-wwcydtf and prescription medicines only as told by [...] Centers for Disease Control and Prevention: www.cdc.gov/heartdisease [employer]: www.heart.org ?Take a free online [...] 02/01/2005 Document Revised: 07/05/2018 Document Reviewed: 07/05/2018 [employer] Patient Education 2020 [employer]. Follow Up Care 12/24/2021 08:31:22 With:Parish PATE Address: [address] [place], [place] [id number]- When:Within 6 Month(s) [facility] [place] 01-10-2022 History of Present illness Narrative* Case [...] BMR: 2209 calories Est. total calorie needs: ~0156-7829 Client overall goal for weight is for [...] pizza, or consume foods from community, including wolof food or fast foods. Has not been [...] the referral. Education session duration: 60 minutes; ([id number]). Reminder to ordering Physician/Provider: Diabetes and CKD (non-dialysis) patients may have 2 hours of MNT education in subsequent years. Hours can be spread over any number of visits. [facility] Phone: 1(280) 625-222301-06-2022 History of Present illness Narrative* Sarah Salmon [...] Carmen Bledsoe Referring Provider: DARLEEN Bernardo NP [place] to learning: Considerations: []Language []Emotional []Health Literacy []Cognitive []Memory changes []Financial []Cultural []Rastafari []Vision []Hearing []Speech []Lack of desire []Literacy [...] not started working on diet because of [place]. Given a one week food diary and [...] the relationship of blood glucose levels to skilled nursing complications of diabetes.Identify preventative measures and standard [...] ) ADA website: Http://www.diabetes.org ( ) Http: //www.Quikey.eWise/-russ/faq.htm ( ) Diabetes Forecast [place] you may get this information on the ADA web site. ( ) Diabetes Interview - [place] ( ) Diabetes Self Management (bi-monthly magazine) ( x ) Support group: Doc tuesday of the month at 9 am ( ) Health Journeys Image Paths (relaxation tapes for people with Diabetes) ( ) Your suggestions: Sarah Salmon RN [facility] Diabetes clinic educator 07/09/2021 10:17 AM documented in this [facility] [employer] Work Phone: 1(205) 327-660312-30-2021 History of Present illness Narrative* Sarah Salmon [...] Carmen Bledsoe Referring Provider: DARLEEN Bernardo NP [place] to learning: Considerations: []Language []Emotional []Health Literacy []Cognitive []Memory changes []Financial []Cultural []Rastafari []Vision []Hearing []Speech []Lack of desire []Literacy [...] the relationship of blood glucose levels to skilled nursing complications of diabetes.Identify preventative measures and standard [...] ) ADA website: Http://www.diabetes.org ( ) Http: //www.Quikey.eWise/-russ/faq.htm ( ) Diabetes Forecast [place] you may get this information on the ADA web site. ( ) Diabetes Interview - [place] ( ) Diabetes Self Management (bi-monthly magazine) ( x ) Support group: Doc third Tuesday of the month at 9 am ( ) Health Journeys Image Paths (relaxation tapes for people with Diabetes) ( ) Your suggestions: Sarah Salmon RN [facility] Diabetes clinic educator 07/02/2021 10:41 AM documented in this [facility] Work Phone: evaluation + Plan note Future Appointments Appointment Date:07/09/2022 11:00:00 AM Scheduled Provider:Parish PATE Location:[facility] Appointment Type:[facility] Doc Evaluation + Plan [facility] Medicine Doc Evaluation + Plan note Future Appointments Appointment Date:09/24/2022 02:40:00 PM Scheduled Provider:Lupis SCHWARTZ MD, FAAFP Location:[facility] Appointment Type: ER/Hospital Follow Up Appointment Date:09/29/2022 11:30:00 AM Scheduled Provider:Carmen Haley DO [facility] [place] Appoint[facility] Type:Cardiology Follow Up (FT) Future Scheduled Tests Laboratory* B-Type Natriuretic Peptide 09/22/22 * Basic Metabolic Panel 09/22/22 * Basic Metabolic Panel 09/22/22 Radiology* NM Myocardial Spect Rest/Stress 2 Day [facility] Future App[facility]ments Appointment Date:09/27/2022 10:40:00 AM Scheduled Provider: [facility] Appointment Type: Nurse Visit Appointment Date:09/29/2022 11:30:00 AM Scheduled Provider:Carmen Haley DO Location:[facility] Appointment Type:Cardiology Follow Up (FT) Appointment Date:11/26/2022 02:40:00 PM Scheduled Provider:SRINIVAS Pereyra Tammy L. Location:[facility] Appointment Type: Open Future Scheduled Tests Laboratory* B-Type Natriuretic Peptide 09/22/22 * Basic Metabolic Panel 09/22/22 * Basic Metabolic Panel 09/22/22 Radiology* NM Myocardial Spect Rest/Stress 2 Day 09/22/22 [facility] Evaluation + Plan note Future Appointments Appointment Date:09/29/2022 11:30:00 AM Scheduled Provider:Carmen Haley DO [facility] Appointment Type:Cardiology Follow Up (FT) Appointment Date:11/26/2022 02:40:00 PM Scheduled Provider:SRINIVAS Pereyra Tammy L. Location:[facility] Appointment Type: Open Future Scheduled Tests Laboratory* Basic Metabolic Panel 09/22/22 Radiology* NM Myocardial Spect Rest/Stress 2 Day 09/22/22 [facility] Evaluation + Plan note Future Appointments Appointment Date:09/29/2022 11:30:00 AM Scheduled Provider:Carmen Haley DO [facility] Appointment Type:Cardiology Follow Up (FT) Appointment Date:11/26/2022 02:40:00 PM Scheduled Provider:SRINIVAS Pereyra Tammy L. Location:[facility] Appointment Type: Open Diagnostic Tests Pending * Basic Metabolic Panel 09/27/22 Future Scheduled Tests Laboratory* Basic Metabolic Panel 09/22/22 Radiology* NM Myocardial Spect Rest/Stress 2 Day 09[facility]22/22 [facility] App[facility]ments Appointment Date:10/13/2022 09:00:00 AM Scheduled Provider:Carmen Haley DO [facility] Appointment Type:Cardiology Follow Up (FT) Appointment Date:10/18/2022 01:40:00 PM Scheduled Provider:Lupis SCHWARTZ MD, FAAFP Location:[facility] Appointment Type:FM Open Appointment Date:11/26/2022 02:40:00 PM Scheduled Provider:SRINIVAS Pereyra Tammy L. Location:[facility] Appointment Type: Open Future Scheduled Tests Laboratory* Basic Metabolic Panel 09/22/22 Radiology* NM Myocardial Spect Rest/Stress 2 Day 09/22/22 [facility] Future App[facility]ments Appointment Date:10/13/2022 09:00:00 AM Scheduled Provider:Carmen Haley DO [facility] [place] Appointment Type:Cardiology Follow Up () Appointment Date:10/18/2022 01:40:00 PM Scheduled Provider:Lupis SCHWARTZ MD, FAAFP Location:[facility] Appointment Type:FM Open Appointment Date:10/19/2022 02:00:00 PM Scheduled Provider: [facility] Type:CV EKG () Appointment Date:10/19/2022 02:30:00 PM Scheduled Provider: [facility] App[facility] Type:NM Myocard Spect Multi Rest/Stress-Res Appointment Date:10/19/2022 03:30:00 PM Scheduled Provider: [facility] Appointment Type:NM Myocard Spect Multi Rest/Stress - R Appointment Date:10/20/2022 02:30:00 PM Scheduled Provider: [facility] Appointment Type:NM Myocard Spect MultiRest/Stress-Stre Appointment Date:10/20/2022 03:30:00 PM Scheduled Provider: [facility] Appointment Type:NM Myocard Spect Multi Rest/Stress - S Appointment Date:11/26/2022 02:40:00 PM Scheduled Provider:SRINIVAS Pereyra Tammy L. Location:[facility] Appointment Type: Open Future Scheduled Tests Radiology* NM Myocardial Spect Rest/Stress 2 Day 10/19/22 [facility] [place] Evaluation + Plan note Future Appointments Appointment Date:10/18/2022 01:40:00 PM Scheduled Provider:Lupis SCHWARTZ MD, FAAFP Location:[facility] Appointment Type:FM Open Appointment Date:10/19/2022 02:00:00 PM Scheduled Provider: [facility] Type:CV EKG (FT) Appointment Date:10/19/2022 [...] 02:40:00 PM Scheduled Provider:SRINIVAS Pereyra Tammy L. Location:[facility] Appointment Type: Open Future Scheduled Tests Laboratory* Vitamin D 25 Hydroxy 10/13/22 * Creatine Kinase 10/13/22 Radiology* US LE Venous Duplex Insufficiency Bilat 10/13/22 * US PVR Lower EXT Complete Bilat 10/13/22 * NM Myocardial Spect Rest/Stress 2 Day 10[facility]19/22 [facility] Future Appointments Appointment Date:05/30/2023 02:00:00 PM Scheduled Provider:SRINIVAS Pereyra Tammy L. Location:[facility] Appointment Type: Open Future Scheduled Tests Laboratory* Vitamin D 25 Hydroxy 10/13/22 * Creatine Kinase 10/13/22 Radiology* US LE Venous Duplex Insufficiency Bilat 10/13/22 [facility] [place] Evaluation + Plan note Future Appointments Appointment Date:04/26/2023 10:00:00 AM Scheduled Provider:Alirio Ramirez MD [facility] [place] Appointment Type:Cardiology Follow Up (FT) Appointment Date:05/30/2023 02:00:00 PM Scheduled Provider:SRINIVAS Pereyra Tammy L. Location:[facility] Appointment Type:FM Open Future Scheduled Tests Laboratory* Vitamin D 25 Hydroxy 10/13/22 * Creatine Kinase 10/13/22 Radiology* US LE Venous Duplex Insufficiency Bilat 10/13/22 * US PVR Lower EXT Complete Bilat [facility]11/23 [facility] Future App[facility]ments Appointment Date:05/09/2023 01:00:00 PM Scheduled Provider: [facility] Appoint[facility] Type:US Duplex Procedures (FT) Appointment Date:05/30/2023 02:00:00 PM Scheduled Provider:SRINIVAS Pereyra Tammy L. Location:[facility] Appointment Type: Open Future Scheduled Tests Laboratory* Vitamin D 25 Hydroxy 10/13/22 * Creatine Kinase 10/13/22 Radiology* US PVR w/ Exercise 05/09/23 * US LE Venous Duplex Insufficiency Bilat 10/13/22 [facility] Evaluation + Plan note Future Appointments Appointment Date:07/25/2023 02:00:00 PM Scheduled Provider:SRINIVAS Pereyra Tammy L. Location:[facility] Appointment Type: Open Future Scheduled Tests Laboratory* Vitamin D 25 Hydroxy 10/13/22 * Creatine Kinase 10/13/22 Radiology* US LE Venous Duplex Insufficiency Bilat 10/13/22 [facility] Future Appointments Appointment Date:10/25/2023 03:00:00 PM Scheduled Provider:Alirio Ramirez MD [facility] [place] Appointment Type:Cardiology Follow Up (FT) Appointment Date:10/26/2023 01:20:00 PM Scheduled Provider:SRINIVAS Pereyra Tammy L. Location:[facility] Appointment Type: Open Appointment Date:11/02/2023 10:30:00 AM Scheduled Provider:Walker Phillip MD Location[facility] Appointment Type:BAD New Patient Future Scheduled Tests Laboratory* Vitamin D 25 Hydroxy 10/13/22 * Creatine Kinase 10/13/22 Radiology* US LE Venous Duplex Insufficiency Bilat 10/13/22 [facility] Evaluation + Plan note Future Appointments Appointment Date:10/26/2023 01:20:00 PM Scheduled Provider:SRINIVAS Pereyra Tammy L. Location:[facility] Appointment Type: Open Appointment Date:11/02/2023 10:30:00 AM Scheduled Provider:Walker Phillip MD Location:[facility] Appointment Type:[facility] New Patient Appointment Date:11/10/2023 03:00:00 PM Scheduled Provider: Location:[facility] Appointment Type: Nurse Visit Appointment Date:12/06/2023 03:15:00 PM Scheduled Provider:Alirio Ramirez MD [facility] Appointment Type:Cardiology Follow Up (FT) Future Scheduled Tests Laboratory* B-Type Natriuretic Peptide 10/25/23 * Basic Metabolic Panel 10/25/23 Radiology* Echo Transthoracic Complete 10/25/23 [facility] Future Appointments Appointment Date:11/02/2023 10:30:00 AM Scheduled Provider:Walker Phillip MD Location:[facility] Appointment Type:[facility] New Patient Appointment Date:11/08/2023 03:00:00 PM Scheduled Provider: Location:[facility] Appointment Type:CV Echo (FT) Appointment Date:11/10/2023 03:00:00 PM Scheduled Provider: Location:[facility] Appointment Type: Nurse Visit Appointment Date:11/25/2023 02:40:00 PM Scheduled Provider:SRINIVAS Pereyra Tammy L. Location:[facility] Appointment Type: Open Appointment Date:12/06/2023 03:15:00 PM Scheduled Provider:Alirio Ramirez MD [facility] Appointment Type:Cardiology Follow Up (FT) Future Scheduled Tests Laboratory* B-Type Natriuretic Peptide 10/25/23 * Basic Metabolic Panel 10/25/23 Radiology* Echo Transthoracic Complete 11/08/23 [facility] [place] Evaluation + Plan note Future Appointments Appointment Date:11/08/2023 03:00:00 PM Scheduled Provider: [facility] Appointment Type:CV Echo (FT) Appointment Date:11/10/2023 03:00:00 PM Scheduled Provider: Location:[facility] Appointment Type:FM Nurse Visit Appointment Date:11/25/2023 02:40:00 PM Scheduled Provider:SRINIVAS Pereyra Tammy L. Location:[facility] Appointment Type:FM Open Appointment Date:12/06/2023 03:15:00 PM Scheduled Provider:Alirio Ramirez MD [facility] [place] Appointment Type:Cardiology Follow Up (FT) Appointment Date:12/23/2023 10:30:00 AM Scheduled Provider: Location:[facility] Appointment Type:Surgery FT Appointment Date:12/23/2023 12:00:00 PM Scheduled Provider: Location:[facility] Appointment Type:Surgery FT Appointment Date:01/13/2024 10:45:00 AM Scheduled Provider:Walker Phillip MD Location:[facility] Appointment Type:[facility] Follow Up Future Scheduled Tests Laboratory* Hep B Core Ab, Tot 11/02/23 * Lkvai-8-Nezfqgytlsk 11/02/23 * B-Type Natriuretic Peptide 10/25/23 * [...] PT 11/02/23 Radiology* Echo Transthoracic Complete 11/08/23 [facility] Evaluation + Plan note Future Appointments Appointment Date:11/10/2023 03:00:00 PM Scheduled Provider: Location:[facility] [place] Appointment Type:FM Nurse Visit Appointment Date:11/25/2023 02:40:00 PM Scheduled Provider:Nigel SMITH, [place] ESPINO Location:[facility] Appointment Type:FM Open Appointment Date:12/06/2023 03:15:00 PM Scheduled Provider:Alirio Ramirez MD [facility] Type:Cardiology Follow Up (FT) Appointment Date:12/23/2023 10:30:00 AM Scheduled Provider: Location:[facility] Appointment Type:Surgery FT Appointment Date:12/23/2023 12:00:00 PM Scheduled Provider: Location:[facility] Appointment Type:Surgery FT Appointment Date:01/13/2024 10:45:00 AM Scheduled Provider:Walker Phillip MD Location:[facility] Appointment Type:[facility] Follow Up Future Scheduled Tests Laboratory* Hep B Core Ab, Tot 11/02/23 * Jqtrq-1-Xswnhutukhr 11/02/23 * B-Type Natriuretic Peptide 10/25/23 * [...] * Iron Level 11/02/23 * PT 11/02/23 [facility] Future Appointments Appointment Date:12/06/2023 03:15:00 PM Scheduled Provider:Alirio Ramirez MD [facility] Type:Cardiology Follow Up (FT) Appointment Date:12/23/2023 10:30:00 AM Scheduled Provider: Location:[facility] Appointment Type:Surgery FT Appointment Date:12/23/2023 12:00:00 PM Scheduled Provider: Location:[facility] Appointment Type:Surgery FT Appointment Date:01/13/2024 10:45:00 AM Scheduled Provider:Walker Phillip MD Location:[facility] Appointment Type:BADH Follow Up Appointment Date:02/22/2024 01:20:00 PM Scheduled Provider:SRINIVAS Pereyra Tammy L. Location:[facility] Appointment Type: Open Future Scheduled Tests Laboratory* Hep B Core Ab, Tot 11/02/23 * Daytf-1-Rkiztsfgcje 11/02/23 * B-Type Natriuretic Peptide 10/25/23 * [...] * Iron Level 11/02/23 * PT 11/02/23 [facility] Evaluation + Plan note Future Appointments Appointment Date:12/23/2023 10:30:00 AM Scheduled Provider: Location:[facility] Appointment Type:Surgery FT Appointment Date:12/23/2023 12:00:00 PM Scheduled Provider: Location:[facility] Appointment Type:Surgery FT Appointment Date:01/13/2024 10:45:00 AM Scheduled Provider:Walker Phillip MD Location:[facility] Appointment Type:BADH Follow Up Appointment Date:02/22/2024 01:20:00 PM Scheduled Provider:Nigel SMITH, [place] ESPINO Location:[facility] Appointment Type: Open Appointment Date:06/05/2024 01:00:00 PM Scheduled Provider:Alirio Ramirez MD [facility] [place] Appointment Type:Cardiology Follow Up (FT) Future Scheduled Tests Laboratory* Hep B Core Ab, Tot 11/02/23 * Kffkv-8-Yfrxnkvejqn 11/02/23 * B-Type Natriuretic Peptide 10/25/23 * [...] * Iron Level 11/02/23 * PT 11/02/23 [facility] Future Appointments Appointment Date:02/22/2024 01:20:00 PM Scheduled Provider:Nigel SMITH, HEEL COVER SOFTENER-[place] VILLATORO Location:[facility] Appointment Type: Open Appointment Date:06/05/2024 01:00:00 PM Scheduled Provider:Alirio Ramirez MD [facility] Appointment Type:Cardiology Follow Up (FT) Future Scheduled Tests Laboratory* Hep B Core Ab, Tot 11/02/23 * Wvcpe-7-Pxwnpmdyljp 11/02/23 * B-Type Natriuretic Peptide 10/25/23 * [...] * Iron Level 11/02/23 * PT 11/02/23 [facility] Evaluation + Plan note Future Appointments Appointment Date:06/05/2024 01:00:00 PM Scheduled Provider:Alirio Ramirez MD Location:.Cardiology [facility] Appointment Type:Cardiology Follow Up (FT) Appointment Date:08/29/2024 01:00:00 PM Scheduled Provider:Nigel SMITH, [place] ESPINO Location:[facility] Appointment Type: Open Appointment Date:08/31/2024 11:00:00 AM Scheduled Provider: Location:[facility] Appointment Type:Surgery FT Future Scheduled Tests Laboratory* Hep B Core Ab, Tot 11/02/23 * Rvxzd-0-Wvvchsnttdg 11/02/23 * B-Type Natriuretic Peptide 10/25/23 * [...] * Iron Level 11/02/23 * PT 11/02/23 [facility] Doc Evaluation + Plan note Future Appointments Appointment Date:08/29/2024 01:00:00 PM Scheduled Provider:Nigel MSN, DARLEEN-IRVING, [place] Location:[facility] Appointment Type: Open Appointment Date:08/31/2024 11:00:00 AM Scheduled Provider: Location:[facility] Appointment Type:Surgery FT Appointment Date:12/18/2024 11:00:00 AM Scheduled Provider:Rick Hernandez PA-C [facility] [place] Appointment Type:Cardiology Follow Up (FT) Future Scheduled Tests Laboratory* Hep B Core Ab, Tot 11/02/23 * Iycch-0-Uxsqsimancl 11/02/23 * B-Type Natriuretic Peptide 10/25/23 * [...] * Iron Level 11/02/23 * PT 11/02/23 [facility] Evaluation + Plan note Future Appointments Appointment Date:07/13/2024 11:00:00 AM Scheduled Provider: Location:[facility] Appointment Type: Nurse Visit Appointment Date:07/18/2024 12:00:00 PM Scheduled Provider:Nigel SMITH, [place] ESPINO Location:[facility] Appointment Type: Open Appointment Date:08/29/2024 01:00:00 PM Scheduled Provider:SRINIVAS Pereyra Tammy L. Location:[facility] Appointment Type:FM Open Appointment Date:08/31/2024 11:00:00 AM Scheduled Provider: Location:[facility] Appointment Type:Surgery FT Appointment Date:12/18/2024 11:00:00 AM Scheduled Provider:Rick Hernandez PA-C Location[facility] [place] Appointment Type:Cardiology Follow Up (FT) Future Scheduled Tests Laboratory* Hep B Core Ab, Tot 11/02/23 * HgbA1c 07/11/24 * Zpgzu-0-Yotijioebbj 11/02/23 * B-Type Natriuretic Peptide 07/11/24 * [...] 11/02/23 * Vitamin B12 Level 07/11/24 [facility] Medicine Doc Evaluation + Plan note Future Appointments Appointment Date:07/18/2024 12:00:00 PM Scheduled Provider:SRINIVAS Pereyra Tammy L. Location:[facility] Appointment Type: Open Appointment Date:08/29/2024 01:00:00 PM Scheduled Provider:SRINIVAS Pereyra Tammy L. Location:[facility] Appointment Type: Open Appointment Date:08/31/2024 11:00:00 AM Scheduled Provider: Location:[facility] Appointment Type:Surgery FT Appointment Date:12/18/2024 11:00:00 AM Scheduled Provider:Rick Hernandez PA-C [facility] [place] Appointment Type:Cardiology Follow Up (FT) Future Scheduled Tests Laboratory* Hep B Core Ab, Tot 11/02/23 * Xqixm-6-Teijiedyuml 11/02/23 * B-Type Natriuretic Peptide 10/25/23 * [...] Iron Level 11/02/23 * PT 11/02/23 [facility] Medicine Doc Evaluation + Plan note Future Appointments Appointment Date:07/18/2024 12:00:00 PM Scheduled Provider:SRINIVAS Pereyra Tammy L. Location:[facility] Appointment Type: Open Appointment Date:08/29/2024 01:00:00 PM Scheduled Provider:SRINIVAS Pereyra Tammy L. Location:[facility] Appointment Type: Open Appointment Date:08/31/2024 11:00:00 AM Scheduled Provider: Location:[facility] Appointment Type:Surgery FT Appointment Date:12/18/2024 11:00:00 AM Scheduled Provider:Rick Hernandez PA-C [facility] Appointment Type:Cardiology Follow Up (FT) Diagnostic Tests Pending * HgbA1c 07/13/24 Future Scheduled Tests Laboratory* Hep B Core Ab, Tot 11/02/23 * Gwite-4-Hdytesvmiyj 11/02/23 * B-Type Natriuretic Peptide 10/25/23 * [...] * Iron Level 11/02/23 * PT 11/02/23 [facility] Evaluation + Plan note Future Appointments Appointment Date:08/31/2024 11:00:00 AM Scheduled Provider: Location:[facility] Appointment Type:Surgery FT Appointment Date:09/12/2024 01:00:00 PM Scheduled Provider:Nigel SMITH, HEEL COVER [employer]-[place] VILLATORO Location:[facility] Appointment Type: Open Appointment Date:12/18/2024 11:00:00 AM Scheduled Provider:Rick Hernandez PA-C [facility] Appointment Type:Cardiology Follow Up (FT) Future Scheduled Tests Laboratory* Hep B Core Ab, Tot 11/02/23 * Dvkaq-9-Igvegfivpaq 11/02/23 * B-Type Natriuretic Peptide 10/25/23 * [...] * Iron Level 11/02/23 * PT 11/02/23 [facility] Doc Evaluation + Plan note Future Appointments Appointment Date:09/12/2024 01:00:00 PM Scheduled Provider:Nigel MSN, HEEL COVER SOFTENER-[employer], [place] Location:[facility] Appointment Type: Open Appointment Date:12/18/2024 11:00:00 AM Scheduled Provider:Rick Hernandez PA-C [facility] [place] Appointment Type:Cardiology Follow Up (FT) Future Scheduled Tests Laboratory* Hep B Core Ab, Tot 11/02/23 * Qeakj-1-Noimbzokdis 11/02/23 * B-Type Natriuretic Peptide 10/25/23 * [...] * Iron Level 11/02/23 * PT 11/02/23 [facility] Evaluation + Plan note Future Appointments Appointment Date:12/18/2024 11:00:00 AM Scheduled Provider:Rick Hernandez PA-C [facility] Appointment Type:Cardiology Follow Up (FT) Appointment Date:12/19/2024 12:40:00 PM Scheduled Provider:Nigel SMITHSRINIVAS Tammy L. Location:[facility] Appointment Type: Open Future Scheduled Tests Laboratory* Hep B Core Ab, Tot 11/02/23 * Texut-0-Hyzqthfhoxr 11/02/23 * B-Type Natriuretic Peptide 10/25/23 * [...] * Iron Level 11/02/23 * PT 11/02/23 [facility] Evaluation + Plan note Future Appointments Appointment Date:12/19/2024 12:40:00 PM Scheduled Provider:SRINIVAS Pereyra Tammy L. Location:[facility] Appointment Type: Open Appointment Date:01/01/2025 02:00:00 PM Scheduled Provider:Rick Hernandez PA-C [facility] Appointment Type:Cardiology Follow Up (FT) [facility] Evaluation + Plan note Future Appointments Appointment Date:01/01/2025 02:00:00 PM Scheduled Provider:Rick Hernandez PA-C [facility] Appointment Type:Cardiology Follow Up (FT) Appointment Date:01/02/2025 01:40:00 PM Scheduled Provider:SRINIVAS Pereyra Tammy L. Location:[facility] Appointment Type: Open Future Scheduled Tests Laboratory* Microalbumin Level Urine 12/19/24 * Urine Microalbumin/Creatinine Ratio 12/19/24 [facility] Evaluation + Plan note Future Appointments Appointment Date:01/02/2025 01:40:00 PM Scheduled Provider:SRINIVAS Pereyra Tammy L. Location:[facility] Appointment Type: Open Appointment Date:01/07/2025 12:30:00 PM Scheduled Provider: [facility] Appoint[facility] Type:PUL Pulmonary Function Test (FT) Future Scheduled Tests Laboratory* Microalbumin Level Urine 12/19/24 * Urine Microalbumin/Creatinine Ratio 12/19/24 * Basic Metabolic Panel 01/02/25 [facility] evaluation + Plan note Future Appointments Appointment Date:01/07/2025 12:30:00 PM Scheduled Provider: [facility] Appoint[facility] Type:PUL Pulmonary Function Test (FT) Appointment Date:01/29/2025 08:30:00 AM Scheduled Provider:Rick Hernandez PA-C [facility] Appointment Type:Cardiology Follow Up (FT) Appointment Date:02/04/2025 01:40:00 PM Scheduled Provider:SRINIVAS Pereyra Tammy L. Location:[facility] Appointment Type: Open Future Scheduled Tests Laboratory* Basic Metabolic Panel 01/02/25 [facility] Evaluation + Plan note Future Appointments Appointment Date:01/29/2025 08:30:00 AM Scheduled Provider:Rick Hernandez PA-C [facility] Appointment Type:Cardiology Follow Up (FT) Appointment Date:02/04/2025 01:40:00 PM Scheduled Provider:SRINIVAS Pereyra Tammy L. Location:[facility] Appointment Type: Open Future Scheduled Tests Laboratory* Basic Metabolic Panel 01/02/25 [facility] evaluation + Plan note Future Appointments Appointment Date:03/05/2025 01:00:00 PM Scheduled Provider:SRINIVAS Pereyra Tammy L. Location:[facility] Appointment Type: Open Appointment Date:03/12/2025 01:15:00 PM Scheduled Provider:Rick Hernandez PA-C [facility] Appointment Type:Cardiology Follow Up (FT) Future Scheduled Tests Laboratory* Basic Metabolic Panel 01/02/25 [facility] [place] Evaluation + Plan note Future Appointments Appointment Date:03/12/2025 01:15:00 PM Scheduled Provider:Rick Hernandez PA-C Location:[facility] [place] Appointment Type:Cardiology Follow Up (FT) Future Scheduled Tests Laboratory* Basic Metabolic Panel 01/02/25 [facility] [place] Evaluation + Plan note Future Appointments Appointment Date:05/21/2025 08:00:00 AM Scheduled Provider: Location:FT.[facility]ARDIO Appointment Type:CV Echo Stress (FT) Appointment Date:06/04/2025 09:00:00 AM Scheduled Provider:Rick Hernandez PA-C Location:[facility] [place] Appointment Type:Cardiology Follow Up (FT) Future Scheduled Tests Laboratory* Basic Metabolic Panel 01/02/25 Radiology* EC Stress Echo Complete w/ Contrast 05/21/25 [facility] evaluation note* Diagnosis SOB (shortness of breath) Shortness of breath Obstructive sleep apnea syndrome Obstructive sleep apnea (adult) (pediatric) Moderate persistent asthma without complication Unspecified asthma Tobacco abuse Tobacco use disorder documented in this encounter [employer] Phone: evaluation note* Diagnosis SOB (shortness of breath) Shortness of breath Obstructive sleep apnea (adult) (pediatric) Moderate persistent asthma without complication Unspecified asthma documented in this encounter [employer] Phone: [email or web address] note* Diagnosis Hypertension, unspecified type Bilateral leg edema Edema documented in this encounter [facility] [employer] Work Phone: [email or web address] note* Diagnosis Onset Date Resolution Status Acute congestive heart failure acuteAcute exacerbation of CHF (congestive heart failure)acuteAcute respiratory failure with hypoxiaacuteChest painacuteShortness of breathacute [facility] Work Phone: evaluation note* Diagnosis Onset Date Resolution Status Acute congestive heart failure acuteAcute exacerbation of CHF (congestive heart failure)acuteAcute respiratory failure with hypoxiaacuteChest painacuteCOPD with acute exacerbationacute Shortness of breathacute [facility] Work Phone: Evaluation note* Diagnosis Alcohol abuse- Primary Alcohol abuse, unspecified documented in this encounter [facility] [employer] Work Phone: evaluation note* Diagnosis Left hand weakness Muscle weakness (generalized) documented in this encounter [facility] [employer] Phone: evaluation note* Diagnosis Weakness of both legs Other musculoskeletal symptoms referable to limbs documented in this encounter [facility] [employer] Phone: evaluation note* Diagnosis Fatigue, unspecified type Screening, lipid Screening for lipoid disorders documented in this encounter [facility] [employer] Phone: evaluation note* Diagnosis Right hip pain Pain in joint, pelvic region and thigh documented in this encounter [facility] [employer] note* Diagnosis Gastroesophageal reflux disease, unspecified whether esophagitis present- Primary Morbid obesity with BMI of 50.0-59.9, adult BRENDA (obstructive sleep apnea) Obstructive sleep apnea (adult) (pediatric) Type 2 diabetes mellitus without complication, without long-term current use of insulin [facility] Diagnosis Onset Date Resolution Status Admit Date Lumbar radiculopathy acuteOctober 2024 9:52am [facility] Work Phone: Hospital course Narrative No data available for this section [facility] Hospital Discharge instructions No data available for this section [facility] Additional Instructions Continue use of CPAP as before.[facility] Work Phone: Hospital Discharge instructions* Attachments The following attachments cannot be sent through Care Everywhere. * Alcohol Intoxication: Acute (Gabonese) [facility] Work Phone: progress note No data available for this section [facility] Reotjp for referral (narrative) Referred by: Parish PATE [facility] Reason for referral (narrative) Referred by: Lupis SCHWARTZ MD, FAAFP Referred by: Lupis SCHWARTZ MD, FAAFP [facility] [place] reason for referral (narrative) , colonscopy, hx of polyps Referred by: Nigel SMITH, HEEL COVER SOFTENER-[employer], [place] [facility] Doc reason for referral (narrative) , X-ray tonight, failed PT Referred by: Nigel SMITH, HEEL COVER SOFTENER-[employer], [place] [facility] Doc reason for referral (narrative)No reason for referral information availableKindred Hospital Lima Work Phone: Assessments Diagnosis Syncope and collapse [...] No Advanced Directives Records FoundDocuments on File TypeDate RecordedPatient RepresentativeExplanationAdvance Directives and Living WillPower of AttorneyCode StatusDate ActivatedDate InactivatedCommentsFull Code 06/18/2018 1:23 PM06/19/2018 8:22 PMFull Code04/26/2018 5:22 04/27/2018 1:14 PMFull Code04/26/2018 11:04 AM04/26/2018 5:16 PMFull Code03/15/2018 1:38 PM 03/16/2018 3:51 PMFull Code03/15/2018 8:18 AM03/15/2018 1:38 PMTypeDate Recorded Patient RepresentativeExplanationAdvance Directives and Living WillPower of AttorneyCode StatusDate ActivatedDate InactivatedCommentsFull Code06/18/2018 1:23 PM06/19/2018 8:22 PMFull Code04/26/2018 5:22 PM10 1:14 PMFull Code 04/26/2018 11:04 AM04/26/2018 5:16 PMFull Code03/15/2018 1:38 PM03/16/2018 3:51 PM Full Code03/15/2018 8:18 AM03/15/2018 1:38 PMTypeDate RecordedPatient RepresentativeExplanationACP-Advance DirectiveACP-Power of AttorneyCode Status Date ActivatedDate InactivatedCommentsFull Code03/17/2020 11:39 AMFull Code 03/17/2020 8:35 AM03/17/2020 11:39 AMFull Code06/18/2018 1:23 PM06/19/2018 8:22 PM TypeDate RecordedPatient RepresentativeExplanationACP-Advance DirectiveACP-Power of AttorneyCode StatusDate ActivatedDate InactivatedCommentsFull Code03/17/2020 11:39 AM03/17/2020 3:44 PMFull Code03/17/2020 8:35 AM03/17/2020 11:39 AMFull Code 06/18/2018 1:23 PM06/19/2018 8:22 PMCode StatusDate ActivatedDate Inactivated CommentsFull Code03/17/2020 11:39 AM03/17/2020 3:44 PM Advance Directive Response Recorded Date/ Time Advance Directives No September 10 2 023 12:11pm Advance Directive Response Recorded Date/ Time Advance Directives No September 10 023 1:11pm Code StatusDate ActivatedDate InactivatedCommentsFull Code03/17/2020 11:39 AM 03/17/2020 3:44 PMCode StatusDate ActivatedDate InactivatedCommentsFull Code 03/17/2020 8:35 AM03/17/2020 11:39 AMFull Code06/18/2018 1:23 PM06/19/2018 8:22 PM Full Code04/26/2018 5:22 PM10 1:14 PMFull Code04/26/2018 11:04 AM 04/26/2018 5:16 PMCode StatusDate ActivatedDate InactivatedCommentsFull Code 03/17/2020 11:39 AM03/17/2020 3:44 PMCode StatusDate ActivatedDate Inactivated CommentsFull Code03/17/2020 8:35 AM03/17/2020 11:39 AMFull Code06/18/2018 1:23 PM 06/19/2018 8:22 PMFull Code04/26/2018 5:22 04/27/2018 1:14 PMFull Code 04/26/2018 11:04 AM04/26/2018 5:16 PM Reason for Referral StatusReasonSpecialtyDiagnoses / ProceduresReferred By ContactReferred To ContactOpenCardiology Diagnoses Syncope and collapse Pre-operative clearance Essential hypertension Hyperlipidemia, unspecified hyperlipidemia type Vitamin D deficiency Procedures EKG 12 Lead Joselito Hsu MD [address] [place] [address] StatusReasonSpecialtyDiagnoses / ProceduresReferred By ContactReferred To ContactNot Required - RecondoPulmonary Function Testing Diagnoses SOB (shortness of breath) Procedures Full PFT Study With Bronchodilator HC BEFORE / AFTER BRONCHODILATOR Joselito Hsu MD [address] [place] [address] [facility] [address] [place] [address] StatusReasonSpecialtyDiagnoses / ProceduresReferred By ContactReferred To ContactPending ReviewRadiology Diagnoses Hypertrophy of uterus Right lower quadrant pain Procedures US NON OB TRANSVAGINAL Mulu Dean APRN - [employer] [address] [place] [address] StatusReasonSpecialtyDiagnoses / ProceduresReferred By ContactReferred To ContactOpenRadiology Diagnoses Hypertrophy of uterus Right lower quadrant pain Procedures US PELVIS COMPLETE Mulu Dean HEEL COVER SOFTENER - [employer] [address] [place] [address] StatusReasonSpecialtyDiagnoses / ProceduresReferred By ContactReferred To ContactOpenRadiology Diagnoses RLQ abdominal pain Procedures CT ABDOMEN PELVIS W IV CONTRAST Additional Contrast? Oral Mulu Dean APRN - CNP [address] [place] [address] SpecialtyDiagnoses / ProceduresReferred By ContactReferred To Contact Diagnoses SOB (shortness of breath) Obstructive sleep apnea syndrome Moderate persistent asthma without complication Tobacco abuse Procedures Full PFT Study With Bronchodilator Mulu Dean APRN - CNP [address] [place] [address] Referral IDStatusNinaasonAguada DateExpiration DateVisits RequestedVisits [id number] [id number] / ProceduresReferred By ContactReferred To ContactCardiology Diagnoses Hypertension, unspecified type Bilateral leg edema I10 (ICD-10-CM) - Hypertension, unspecified type Procedures Echocardiogram complete SD ECHO TTHRC R-T 2D W/WOM-MODE COMPL SPEC&COLR D 98907 - SD ECHO TTHRC R-T 2D W/WOM-MODE COMPL SPEC&COLR D Lupis Schwartz MD [address] [place] [address] Referral IDStatusNinaCommunity Hospital DateExpiration DateVisits RequestedVisits [id number]/22/20232/ Discharge Instructions * Instructions* Echo Paiz RN [...] one drug, even if it is an nnex-grj-bufnnnx medication, herb, or dietary supplement, be sure [...] for Visit (unrecogniz ed section and content) StatusReasonSpecialtyDiagnoses / ProceduresReferred By ContactReferred To ContactNot Required - RecondoPulmonary Function Testing Diagnoses SOB (shortness of breath) Procedures Full PFT Study With Bronchodilator HC BEFORE / AFTER BRONCHODILATOR Joselito Hsu MD [address] [place] [address] [employer] [address] [place] [address] StatusReasonSpecialtyDiagnoses / ProceduresReferred By ContactReferred To ContactPending ReviewRadiology Diagnoses Hypertrophy of uterus Right lower quadrant pain Procedures HC US PELVIS COMPLETE Mulu Dean APRN - [employer] [address] [place] [address] [facility] Ul[facility]ound [address] [place] [address] StatusReasonSpecialtyDiagnoses / ProceduresReferred By ContactReferred To Contact Diagnoses Right lower quadrant abdominal pain Weight gain RIGHT LOWER ABDOMINAL PAIN, WEIGHT GAIN Procedures SD COLONOSCOPY FLX DX W/COLLJ SPEC WHEN PFRMD SD ESOPHAGOGASTRODUODENOSCOPY TRANSORAL DIAGNOSTIC COLONOSCOPY EGD ESOPHAGOGASTRODUODENOSCOPY Glenn Malik MD [address] [facility] [address] [place] [address] [facility] StatusReasonSpecialtyDiagnoses / ProceduresReferred By ContactReferred To ContactClosedRadiology Diagnoses Right lower quadrant pain Procedures CT ABDOMEN PELVIS W CONTRAST Mulu Dean APRN - [employer] [address] [place] [address] [place] [phone] SpecialtyDiagnoses / ProceduresReferred By ContactReferred To Contact Diagnoses SOB (shortness of breath) Obstructive sleep apnea syndrome Moderate persistent asthma without complication Tobacco abuse Procedures Full PFT Study With Bronchodilator Mulu Dean, HEEL COVER SOFTENER - [employer] [address] [place] [address] Referral IDStatusReasonStart DateExpiration DateVisits RequestedVisits [id number] [id number] ClassSpecialtyDiagnoses / ProceduresReferred By ContactReferred To Contact Cardiology Diagnoses Hypertension, unspecified type Bilateral leg edema I10 (ICD-10-CM) - Hypertension, unspecified type Procedures Echocardiogram complete SD ECHO TTHRC R-T 2D W/WOM-MODE COMPL SPEC&COLR D 31622 - SD ECHO TTHRC R-T 2D W/WOM-MODE COMPL SPEC&COLR D Lupis Schwartz MD [address] [place] [address] Referral IDStatusReasonStart DateExpiration DateVisits RequestedVisits [id number]/22/20232/17/[id number] PainChest pain, SOB x1 day patient states this started after had 2 bottles of rum today SpecialtyDiagnoses / ProceduresReferred By ContactReferred To ContactRadiology Diagnoses Fatigue, unspecified type Screening, lipid Procedures VL DUP LOWER EXTREMITY VENOUS BILATERAL US DUP LOWER EXTREMITIES BILATERAL VENOUS Carmen Haley, DO [address] [place] [address] Referral IDStatusReasonAguada DateExpiration DateVisits RequestedVisits [id number] Maureen is interested in bariatric surgery for weight loss and improvement of comorbid conditions.SpecialtyDiagnoses / ProceduresReferred By ContactReferred To Contact Multispecialty Diagnoses Morbid obesity with BMI of 50.0-59.9, adult BRENDA (obstructive sleep apnea) Type 2 diabetes mellitus with morbid obesity Benign hypertension [employer] [facility] [address] [place] [address] Phone: tel: Coco Dean MD [address] [place] [address] Phone: tel: Referral IDStatusReasonAguada DateExpiration DateVisits RequestedVisits [id number] Review/ Care Teams (unrecognized sec tion and content) Team MemberRelationshipSpecialtyStart DateEnd Date Mulu Dean APRN - [employer] [address] [place] [address] PCP - [facility] Medicine02/17/17Team MemberRelationshipSpecialtyStart DateEnd Date Mulu Dean APRN - [employer] [address] [place] [address] [facility]/17/17Team MemberRelationshipSpecialtyStart DateEnd Date Mulu Dean APRN - [employer] [address] [place] [address] [facility]02/17/17Team MemberRelationshipSpecialtyStart DateEnd Date Mulu Dean, HEEL COVER SOFTENER - [facility] [address] [place] [address] PCP - [facility] Medicine02/17/17Team MemberRelationshipSpecialtyStart DateEnd Date Mulu Dean, HEEL COVER SOFTENER - [facility] [address] [place] [address] PCP - [facility]02/17/17Team MemberRelationshipSpecialtyStart DateEnd Date Mulu Dean, HEEL COVER SOFTENER - [employer] [address] [place] [address] PCP - [facility]02/17/17Team MemberRelationshipSpecialtyStart DateEnd Date [facility] kolb, HEEL COVER SOFTENER - [employer] [address] [place] [address] PCP - [facility]02/17/17 Team Status: Active Member Role Status Dates NON STAFF Primary Care Provider Active Team Status: Active Member Role Status Dates NON STAFF Primary Care Provider Active Joo Ramos , DOEmergency ProviderActiveObaydwerner Riosr , MDAdmit Provider, Attending ProviderActive Team Status: Active Member Role Status Dates Lupis Schwartz MD Primary Care Provider Active Team Status: Inactive Member Role Status Dates Joo Ramos DO Emergency Provider Active Obaydacuca Mejiaomar , MDAdmit ProviderActiveAnoop Daniel , MDAttending Provider ActiveDEZ [facility] Care ProviderActiveTeam MemberRelationship SpecialtyStart DateEnd Date Mulu Dean, HEEL COVER SOFTENER - [employer] [address] [place] [address] PCP - [facility] Medicine02/17/17Team MemberRelationshipSpecialtyStart DateEnd Date Mulu Dean HEEL COVER SOFTENER - [employer] [address] [place] [id number] PCP - GeneralFamily Medicine02/17/17Team MemberRelationshipSpecialtyStart DateEnd Date Mulu Dean HEEL COVER SOFTENER - [employer] [address] [place] [phone] [facility] - [facility]02/17/17Team MemberRelationshipSpecialtyStart DateEnd Date Mulu Dean APRN - [place] [facility]/17/17Te MemberRelationshipSpecialtyStart DateEnd Date Paris Rust APRN - [employer] [address] [place] [address] PCP - GeneralNurse Practitioner Dkciko43/27/23Team MemberRelationshipSpecialty Start DateEnd Date Paris Rust APRN - [employer] [address] [place] [address] PCP - GeneralNurse Practitioner Zfrtal87/27/23Team MemberRelationshipSpecialty Start DateEnd Date Paris Rust APRN - [employer] [address] [place], [place] [id number] PCP - GeneralNurse Practitioner Ukxeko45/27/23Team MemberRelationshipSpecialty Start DateEnd Date Paris Rust DR[employer] [address] [place] [phone] PCP - GeneralNurse Practitioner - Family11/07/24 Team Status: Active Member Role Status Dates Paris L Nigel , MANAGER OF RADIOLOGY-C Primary Care Provider Active Team Status: Inactive Member Role Status Dates Glenn Perkins DO Attending Provider Active S tart: April 03, 2025 End: April 03, 2025Paris Rust NP-[facility] Care ProviderActiveStart: April 03, 2025 End: April 03, 2025 Goals (unrecognized section and content) Goals may be documented in a n alternate section INFORMATION SOURCE (unrecogn ized section and content) DATE CREATED AUTHOR 09/18/2022 [facility] DATE CREATED AUTHOR AUTHOR'S ORGANIZ ATION 02/10/2023 [facility] (formerly [facility]3] DATE CREATED AUTHOR AUTHOR'S ORGANIZ ATION 09/01/2023 [facility] DATE CREATED AUTHOR AUTHOR'S ORGANIZ ATION 12/23/2023 [facility] DATE CREATED AUTHOR AUTHOR'S ORGANIZ ATION 07/18/2024 [facility] DATE CREATED AUTHOR AUTHOR'S ORGANIZ ATION 09/06/2024 [facility] DATE CREATED AUTHOR AUTHOR'S ORGANIZ ATION 09/15/2024 [facility] DATE CREATED AUTHOR AUTHOR'S ORGANIZ ATION 12/21/2024 [facility] DATE CREATED AUTHOR AUTHOR'S ORGANIZ ATION 12/23/2024 [facility] DATE CREATED AUTHOR AUTHOR'S ORGANIZ ATION 12/27/2024 [facility] DATE CREATED AUTHOR AUTHOR'S ORGANIZ ATION 12/28/2024 [facility] DATE CREATED AUTHOR AUTHOR'S ORGANIZ ATION 12/29/2024 [facility] DATE CREATED AUTHOR AUTHOR'S ORGANIZ ATION 12/30/2024 [facility] DATE CREATED AUTHOR AUTHOR'S ORGANIZ ATION 01/03/2025 [facility] DATE CREATED AUTHOR AUTHOR'S ORGANIZ ATION 01/04/2025 [facility] DATE CREATED AUTHOR AUTHOR'S ORGANIZ ATION 01/06/2025 [facility] DATE CREATED AUTHOR AUTHOR'S ORGANIZ ATION 01/13/2025 [facility] DATE CREATED AUTHOR AUTHOR'S ORGANIZ ATION 01/25/2025 [facility] DATE CREATED AUTHOR AUTHOR'S ORGANIZ ATION 01/31/2025 [facility] DATE CREATED AUTHOR AUTHOR'S ORGANIZ ATION 02/06/2025 [facility] DATE CREATED AUTHOR AUTHOR'S ORGANIZ ATION 04/10/2025 [facility] DATE CREATED AUTHOR AUTHOR'S ORGANIZ ATION 04/27/2025 [facility] Scheduled Active and Recently Administ ered Medications (unrecognized section and content) Medication Order// ipratropium (ATROVENT) 0.02 % nebulizer solution 0.5 mg (COMPLETED) 0.5 mg, Nebulization, ONCE, 1 dose, On Mery 10/14/22 at 2200, Initiate RT Bronchodilator Protocol: No * 2202 (Given - Provider: Onelia Avalos RCP) [...] BE BASED ON THE PRIMARY CLINICAL RECORDS. [employer] [facility]. provides no warranty or guarantee of the accuracy or completeness of information in this document.
--- NOTE | 2025-05-08 12:54 | PM.CN ---
Consult Note: HPI Data of Consult Patient: known to practice within the last 3 years Consult date: 05/08/25 Requesting Physician: Eda Christianson NP Primary Care Provider: Non-Staff Physician, MD Consult Narrative Reason for consult: f/u Narrative: Carmen Casiano a 64 year old female presents for evaluation and management of chronic low back pain. hx of lumbar stenosis, lumbar ddd, and lumbar spondylosis per prior lumbar MRI and xray. pt has failed to benefit from > 6 weeks of PT and provider guided HEP, heat, ice, tylenol, and ibuprofen. pain today 10/10 in right posterior hip and upper thigh pain increased with standing, walking, activity. utilizing flexeril 10mg tid prn, meloxicam 7.5mg bid prn, and gabapentin 800mg TID without side effects, no significant improvement. pt interested in further working up for scs trial/implant however needs to lose weight first. cc:: CC: Eda Christianson NP Review of Systems ROS Musculoskeletal Reports: back pain and joint pain PFSH PFSH Medical History Rheumatoid arthritis ?M06.9 - Rheumatoid arthritis, unspecified (ICD-10) Diabetes ?E11.9 - Type 2 diabetes mellitus without complications (ICD-10) Sleep apnea ?G47.30 - Sleep apnea, unspecified (ICD-10) Asthma ?J45.909 - Unspecified asthma, uncomplicated (ICD-10) CHF (congestive heart failure) ?I50.9 - Heart failure, unspecified (ICD-10) Surgical History History of cataract extraction ?Z98.49 - Cataract extraction status, unspecified eye (ICD-10) History of foot surgery ?Z98.890 - Other specified postprocedural states (ICD-10) History of knee replacement ?Z96.659 - Presence of unspecified artificial knee joint (ICD-10) Meds Home Medications and Allergies Home Medications ?Medication ?Instructions ?Recorded ?Confirmed ?Type aripiprazole 2 mg tablet (Abilify) 2 mg PO DAILY 05/18/23 04/22/25 History empagliflozin 10 mg tablet 10 mg PO DAILY 05/18/23 04/22/25 History (Jardiance) fluoxetine 20 mg capsule 40 mg PO DAILY 05/18/23 04/22/25 History furosemide 40 mg tablet 40 mg PO DAILY 05/18/23 04/22/25 History glipizide 2.5 mg tablet 2.5 mg PO DAILY 05/18/23 04/22/25 History pantoprazole 40 mg tablet,delayed 40 mg PO DAILY 05/18/23 04/22/25 History release potassium chloride 20 mEq 20 meq PO DAILY 05/18/23 04/22/25 History tablet,extended release(part/cryst) (Klor-Con M) rosuvastatin 40 mg tablet 40 mg PO DAILY 05/18/23 04/22/25 History sacubitril 24 mg-valsartan 26 mg 1 tab PO BID 05/18/23 04/22/25 History tablet (Entresto) spironolactone 25 mg tablet 25 mg PO DAILY 05/18/23 04/22/25 History dulaglutide 1.5 mg/0.5 mL 1.5 mg subcut QWEEK 01/26/24 04/22/25 History subcutaneous pen injector (Trulicity) meloxicam 7.5 mg tablet 7.5 mg PO BID 10/17/24 04/22/25 History cyclobenzaprine 10 mg tablet 10 mg PO TID PRN muscle spasm #90 04/11/25 04/22/25 Rx tabs gabapentin 800 mg tablet 800 mg PO TID #90 tabs 04/11/25 04/22/25 Rx Allergies Allergy/AdvReac Type Severity Reaction Status Date / Time No Known Drug Allergies Allergy Verified 04/22/25 10:56 Exam Constitutional Documenting provider has reviewed patient's vital signs: yes Common normals: no apparent distress, oriented x3 and alert General appearance: cooperative Nutritional appearance: obese [facility] Common normals: normocephalic, hearing grossly normal bilaterally and moist oral mucous membranes Head and scalp: normocephalic Eye Common normals: PERRL Pupil: PERRL Neck & C-Spine Common normals: full ROM General: normal visual inspection Chest Common normals: inspection of chest normal Respiratory Common normals: normal respiratory effort, no retractions and no use of accessory muscles Back & Pelvis Lumbar spine/lower back: ROM limited and pain with ROM; straight leg raise negative right Sacroiliac joints: SI joint(s) abnormal Other: strength 5/5 in BLE right sij positive aliyah(patricks), gaenslens, thigh thrust, compression test sensation intact BLE no evidence of radicular pain at this time, significant improvement post bilateral L5-S1 TFESI Neuro Common normals: oriented x3 Sensorium/orientation: alert Psych Common normals: mental status grossly normal, thought process normal, cooperative, affect normal, speech normal and activity/motor behavior normal Speech: normal speech Thought process: normal thought process Assessment and Plan Assessment and Plan (1) Sacroiliitis: Assessment and Plan: pt notes prior bilateral SIJ injection provided at least 50% improvement in right SIJ pain and functional ability for at least 3 months, this pain is increasing post bilateral L5-S1 TFESI The patient has had over 3 months of moderate to severe low back and SIJ pain with functional impairment and inadequate response to conservative care including NSAIDS (unless there are contraindication such as concurrent blood thinners), multiple oral or topical pain medications, and home exercise program/physical therapy.? Patient has completed >6 weeks of guided home exercise program and/or formal physical therapy program without relief of their symptoms.? I have reviewed the imaging of the lumbar spine and no red flags were identified.? The imaging reveals radiographic findings consistent with lumbar ddd, stenosis, spondylosis The Oswestry Disability Index was completed, and the patient scored a 58%.? (2) Lumbar stenosis with neurogenic claudication: Assessment and Plan: 10--25 bilateral L5-S1 TFESI at least 50% improvement in NC (3) Myalgia: (4) Lumbar spondylosis: (5) Morbid obesity with BMI of 50.0-59.9, adult: Assessment and Plan: patient advised to f/u with PCP to discuss weight loss medications vs consultation to weight loss clinic or bariatrics team Plan repeat right SIJ injection under fluoroscopy increase gabapentin 1200mg TID, risks vs benefits reviewed f/u 2 weeks after injection
== END 2025-05-08 12:35 | disposition home or self-care (01) ==
LOC: PM 12:34
PROVIDERS: Visit Provider Nurse Practitioner
DX: M46.1 Sacroiliitis, not elsewhere classified (principal); M48.062 Spinal stenosis, lumbar region with neurogenic claudication; M79.18 Myalgia, other site; M47.816 Spondylosis without myelopathy or radiculopathy, lumbar region; E66.01 Morbid (severe) obesity due to excess calories; Z68.43 Body mass index [BMI] 50.0-59.9, adult
CPT/HCPCS: G0463

== ENCOUNTER 2025-05-13 08:14 | Day surgery (SDC) | payer OTHER, SELFPAY ==
--- OUTSIDE RECORDS SUMMARY | 2025-05-13 08:18 | XMS_ITS | Clinical Summary ---
Author Organization [facility] Address [address] [facility] [place] [address] Care Team Providers Care Business Broker Name Role Phone Unavailable Primary Care Provider Unavailabl e Social History Tobacco UseTypesPacks/DayYears UsedDateSmoking Tobacco: Never Assessed CommentsUnknownSex and Gender InformationValueDate RecordedSex Assigned at Not on fileLegal DqjEzznwc81/15/2023 8:15 PM EDTGender IdentityNot on fileSexual OrientationNot on file Last Filed Vital Signs Vital SignReadingTime TakenCommentsBlood Apvxdiza597/9411 12:00 PM EST Pulse--Temperature--Respiratory Rate--Oxygen Saturation--Inhaled Oxygen Concentration--Xvpasx088 kg (295 lb 6.4 oz)06/01/2018 12:00 PM ASINhcicu790.4 cm (5' 5.5 )06/01/2018 12:00 PM ESTBody Mass Index48.41108/01/2017 12:00 PM EST Plan of Treatment Not on file Insurance * Guarantor: Carmen Casiano KAccount TypeRelation to PatientDate of BirthPhone Billing AddressPersonal/AkbyntOnde48/15/1961 [address] [place] [address]
--- OUTSIDE RECORDS SUMMARY | 2025-05-13 08:18 | XMS_ITS | Clinical Summary ---
Author Organization [facility] Address [address] [place] [address] Phone Care Team Providers Care Fly Winder Name Role Phone Unavailable Primary Care Provider Unavailabl e Social History Tobacco UseTypesPacks/DayYears UsedDateSmoking Tobacco: Never Assessed CommentsUnknownSex and Gender InformationValueDate RecordedSex Assigned at Not on fileLegal VfjOaccst23/13/2023 11:45 AM EDTGender IdentityNot on file Sexual OrientationNot on file Plan of Treatment Health MaintenanceDue DateLast DoneCommentsCT Jekwysajsxvd01/15/1963Colonoscopy 1962Colorectal Cancer Uatxvurpv26/15/1963FIT-DNA (Cologuard)1962FIT 1962HIV Ahqgpvplz59/15/1963Lipid Panel1962 4657Tbzoyekerjvmc88/15/1963 Yearly Adult Mdgjazsu24/15/1963MMR Vaccines (1 of 1 - Standard series)11/16/1963 Hepatitis C Gzouqfvki57/15/1981Cervical Cancer Quqstuxmb1984HPV/Cotest 11/16/1983Pap Smear11/16/1983DTaP/Tdap/Td Vaccines (1 - Tdap)1984Mammogram 2002Pneumococcal [...]
--- OUTSIDE RECORDS SUMMARY | 2025-05-13 08:18 | XMS_ITS | Patient Health Record ---
Author Organization [facility] Address [address] [place] [address] Care Team Providers Care Disk Sharpener Name Role Phone Gio Menendez Unavailable [phone] Allergies No Known Allergies Reason For Referral No Information Medications Medication SIG (Take, Route, Frequency, Duration) Notes Start Date End Date Status spironolactone 25 mg for 90 Days ActiveARIPiprazole 2 mgfor 90 OxtiLyzggwhdhbahixousj33/20/2024ctivegabapentin 300 mg1 cap(s) orally 1 pill once [...] Dose Pack 4 mgas directed ORAL DIRECTED 11/21/20235164Xeddxvpdcaputuh26/20/2024ctivefurosemide 40 mgfor 90 DaysActive mdqpjGQRL73/20/2024ctiveTrulicity Pen 1.5 mg/0.5 mLinject 1 and 1/2 [...] containging alcohol in the last year? Yes Vtrwtw7TpbpqhszfeolngVygumjmd Problems Problem Type SNOMED Code ICD Code Onset Dates Problem Status W/U Status Risk Notes Problem 941253635161495 Right hip pain (M25.551) SljrtcxfueedbkaVvhlzgb874561060Csibtk radiculopathy (M54.16)Activeconfirmed [id number] in right hip (M25.551)ActiveconfirmedProblem 092502976440221Rtetaddyagfd bursitis of right hip (M70.61)ActiveconfirmedProblem 486014870002421Nuvxshkcnl primary osteoarthritis, right hip (M16.11)Active confirmedProblemLumbar radiculopathy (118837558)Radiculopathy, lumbar region (M54.16)ActiveconfirmedProblemLumbosacral spondylosis with radiculopathy (544148625)Lumbosacral spondylosis with radiculopathy (M47.27)Activeconfirmed ProblemSpinal stenosis of lumbar region (97605054)Lumbosacral spinal stenosis (M48.07)HhdyksqypjqbruzCrusfqg93781425MEU (degenerative disc disease), lumbosacral (M51.37)UhxcbubkobwhqgzEpwpgqb21000121Mwqbegqpluwx lumbar disc (M51.36)Activeconfirmed Plan Of Treatment Pending [...] Date Medicaid [employer] [place] [address] [place] [id number] [phone] [id number] Troy BLEDSOE - patient is the insured Medical (General) History Medical History History ICD Code Asthma/COPD Type II diabetesDepressionAnxietySleep apneaCPAP Machine:Do you use the CPAP machine? Yes
--- OUTSIDE RECORDS SUMMARY | 2025-05-13 08:18 | XMS_ITS | Clinical Summary ---
Author Organization [facility] Address [address] [place] [address] Care Team Providers Care Poiser Name Role Phone Paris Manning IRVING Primary Care Provider [phone] Allergies Active AllergyReactionsCriticalityNoted ChulIcgblvymVbvwvjbkpcEbis02/07/2025 Other Reaction(s): Leg Edema IpsiyzsiwSsswmfxr52/07/2025 Medications MedicationSigDispense QuantityRefillsLast FilledStart DateEnd DateStatus Albuterol 108 (90 Base) MCG/ACT Aero Soln inhaler Inhale 2 puffs every 4 hours as needed for Wheezing.Active Aripiprazole 5 MG tablet Take 1 tablet by mouth daily.Active atorvastatin 80 MG tablet Take 1 tablet by mouth Every night.Active Trulicity 3 MG/0.5ML Solution Auto-injector Inject 3 mg under the skin once a week.10/26/2024tive Jardiance 10 MG tablet Take 1 tablet by mouth daily.Active FLUoxetine 20 MG capsule Take 2 capsules by mouth daily.Active furOSEmide 40 MG tablet Take 1 tablet by mouth daily.06/05/2024ctive Gabapentin 300 MG capsule Take 1 capsule by mouth 3 times daily.Active glipiZIDE 2.5 MG tablet XL Take 1 tablet by mouth daily.12/20/2023ctive Pantoprazole [address] tablet DR Take 1 tablet by mouth daily.05/07/2024ctive Potassium Chloride ER 20 MEQ Tab CR tablet take 1 tablet by mouth once daily WITH LASIXActive Crestor 40 MG tablet Take 1 tablet by mouth daily.06/05/2024ctive Spironolactone 25 MG tablet Take 1 tablet by mouth daily.Active Active Problems ProblemNoted DateDiagnosed DateMorbid obesity with body mass index of 50 or tisbhk9711/07/2024 Social History Tobacco UseTypesPacks/DayYears UsedDateSmoking Tobacco: Every DayCigarettes0.5 45.9Started: 07/04/1979mokeless Tobacco: Never Tobacco Cessation:Ready to Q uit: Yes; Counseling Given: No Alcohol UseStandard Drinks/WeekCommentsYes0 (1 standard drink = 0.6 oz pure alcohol)occasionallyCommentsNoSex and Gender InformationValueDate RecordedSex Assigned at BirthNot on fileLegal AqoQbkall11/28/2025 1:05 PM EDT Gender IdentityNot on fileSexual OrientationNot on file Last Filed Vital Signs Vital SignReadingTime TakenCommentsBlood Lxbyvklr092/8211/07/2024 9:58 AM EDT Bhvrt114611/07/2024 9:58 AM EDTTemperature--Respiratory Bcpd605611/07/2024 9:58 AM EDTOxygen Bqtntzgejp94%11/07/2024 9:58 AM EDTInhaled Oxygen Concentration-- Ixptyh124.8 kg (339 lb)11/07/2024 9:58 AM BJPZdfjbk429.6 cm (5' 6 )11/07/2024 9:58 AM EDTBody Mass Index54.72011/07/2024 9:58 AM EDT Plan of Treatment Health MaintenanceDue DateLast DoneCommentsHEPATITIS C VIRUS UISQTZNQO09/15/1963 VVHVUMQIH27/15/1963HIV SCREENING YQCZTXWCAJ18/15/1978CERVICAL CANCER SCREENING QOGNBDHIBF93/15/1984LIPID QKYVRYXJB87/15/2003COLORECTAL CANCER SCREENING OKJJXKTXPM41/15/2008LUNG CANCER WEHERTCNW55/15/2013RSV VACCINE (1 - Risk 50-74 years 1-dose series)2012MAMMOGRAM SCREENING SFAKGMHOCF87/29/2020 09/29/2018, 06/30/2017PNEUMOCOCCAL VACCINE SERIES (2 of 2 - PCV)04/10/2021 04/10/2020, 12/16/2017COVID-19 VACCINE ( season)5107/31/2022, 05/11/2022, 12/15/2021, Additional history existsINFLUENZA VACCINE (#1) 5007/11/2024, 03/18/2023, 05/11/2022, Additional history existsTETANUS , 10/27/2014TDAP (ADULT)Qvxgfrkii27/08/2020, 10/27/2014 ZOSTER (SHINGLES) HFIGFRAAdzjpsxeb49/06/2021, 07/09/2020, 04/10/2020, Additional history existsHEP B VACCINEAged OutNo longer eligible based on patient's age to complete this topic Insurance Care Teams Team MemberRelationshipSpecialtyStart DateEnd Date Paris Manning, COMPLIANCE NURSE [address] [place] [address] PCP - GeneralNurse Practitioner - [facility]11/07/24
[2025-05-13 08:23] VITALS: BP 161/85; PULSE 79; TEMP 36.7; O2SAT 94
--- OUTSIDE RECORDS SUMMARY | 2025-05-13 08:23 | XMS_ITS | CCD ---
Author Organization [facility] Inform ion [facility] Care Team Providers Care Clinical Pharmacologist Name Role Phone Mulu Dean Primary Care Provider [phone] Mulu DEAN Primary Care Physician [phone] Paris Rust Primary Care Physician Jermaine SHIPPING AND RECEIVING WEIGHER - SHOE COVERER, Mulu Primary Care Pro vider NON STAFF Primary Care Provider Unavailabl e DO Joo Ramos Emergency Provider MD Marilyn Sun Admit Provider MD Marilyn Sun Attending Provider DO Joo Ramos Emergency Provider [phone] MD Marilyn Sun Admit Provider MD José Sanchez Attending Provider [phone] MD Lupis Schwartz Primary Care Provider Marilyn Sun Admitting Unavailable José Sanchez Attending Unavailable Lupis Schwartz Primary Care Unavailable Lupis SCHWARTZ Primary Care Physician Jermaine SHIPPING AND RECEIVING WEIGHER - SHOE COVERER, Mulu Primary Care Pro vider Nigel MOREJON - Paris VILLATORO Primary Care Provider PARIS RUST Referring Unavailable PARIS RUST Primary Care Unavailable Paris Rust Primary Care Physician KAMALJIT MENENDEZ Attending Unavailable KAMALJIT MENENDEZ Referring Unavailable NIGEL, PARIS Primary Care Unavailable ALIRIO RAMIREZ Referring Unavailab le NIGEL, PARIS Primary Care Unavailable MGEHAN, EDA Referring Unavailable NIGEL, PARIS Primary Care [...] NIGEL, PARIS Primary Care Unavailable Nigel, MSN, SHIPPING AND RECEIVING WEIGHER-SHOE COVERER Paris Hamilton Attending U jesika Rust, MSN, SHIPPING AND RECEIVING WEIGHER-SHOE COVERER Paris Hamilton Admitting U jesika CARBAJAL, XXXX [...] Walker Phillipal Attending Unavaila caroline Rust, MSN, SHIPPING AND RECEIVING WEIGHER-SHOE COVERER Paris Hamilton Attending U jesika Rust, MSN, SHIPPING AND RECEIVING WEIGHER-SHOE COVERER Paris Hamilton Attending U jesika Rust, MSN, SHIPPING AND RECEIVING WEIGHER-SHOE COVERER Paris Hamilton Attending U navailshahab Rust, MSN, SHIPPING AND RECEIVING WEIGHER-SHOE COVERER Paris Hamilton Attending U jesika Rust, MSN, SHIPPING AND RECEIVING WEIGHER-SHOE COVERER Paris Hamilton Attending U Alirio Ennis Attending Unavaila ble NONE, XXXX Referring Unavailable Nigel Paris VILLATORO Primary Care Provider Nigel, Paris L. Attending Unavailable Nigel, Paris L. Attending Unavailable Nigel, Paris L. Attending Unavailable Nigel, Paris L. Admitting Unavailable Nigel, MSN, SHIPPING AND RECEIVING WEIGHER-SHOE COVERER Paris L. Admitting U navailable Nigel, MSN, SHIPPING AND RECEIVING WEIGHER-SHOE COVERER Paris L. Attending U navailable Hajdmomo, Astrit [...] Nigel, Paris L. Attending Unavailable Nigel, MSN, SHIPPING AND RECEIVING WEIGHER-SHOE COVERER Paris L. Admitting U navailable Nigel, MSN, SHIPPING AND RECEIVING WEIGHER-SHOE COVERER Paris L. Attending U navailable Nigel, Paris [...] Unavailable Glenn Perkins DO Attending Provider Nigel ACCELERATOR SYSTEMS DIRECTOR-C Paris Jeannette Primary Care Provider [phone] NONE, XXXX Referring Unavailable Rick Hernandez Attending [...] OnsetReaction(s) FacilityamLODIPine (1 source)amLODIPine; Translations: [amlodipine]Drug AllergyLeg [facility] HospitalAngiotensin Converting Enzyme (DESMOND) Inhibitors (1 source)Lisinopril; Translations: [lisinopril]Drug AllergyPersistent cough (finding), Tongue swelling (finding)[facility] ([facility] source)metFORMIN; Translations: [metformin]Drug AllergyDiarrhea (finding) [facility] (20 sources)amLODIPine; Translations: [amlodipine]Drug Touxfdu65-11-7383Qfo[facility] (20 sources)Lisinopril; Translations: [lisinopril]Drug AllergyPersistent cough (finding), Tongue swelling (finding)[facility] (20 sources)metFORMIN; Translations: [metformin]Drug Vhjjitl20-88-4744Qjtniyuf (finding), [facility]arrheaK[facility] (13 sources)No Known Medication Allergies; Translations: [No Known Medication Allergies]Propensity to adverse reactions (disorder)[facility] Repository Medications Current Medications MedicationDrug Class(es)DatesSig (Normalized)Sig (Original)0.25 MG, 0.5 MG Dose 3 ML semaglutide 0.68 MG/ML Pen Injector [Ozempic] (4 sources)Start: 35-87-8457rndlzz 0.5 mg by subcutaneous injection every week Ozempic 2 mg/3 mL (0.25 mg or 0.5 mg dose) subcutaneous solution 0.5 mg, SubCutaneous, qWeek, # 2 EA, Refills(s) 0, Pharmacy: [facility] #[id number], 168, cm, 07/18/24 11:59:00 EST, Height/Length Dosing, 148.4, kg, 07/18/24 11:59:00 EST, Weight Dosing Start Date: 07/18/24 Status: OrderedAdvair HFA 115 mcg-21 mcg/inh inhalation aerosol with adapter (3 sources)Start: 44-82-5882hyhr 2 puff(s) by inhalation twice dailyAdvair HFA 115 mcg-21 mcg/inh inhalation aerosol with adapter 2 puff(s), Inhalation, BID, 8 gm, Refill(s) 1, [facility], 168, cm, 01/29/25 8:19:00 EDT, Height/Length Dosing, 159, kg, 01/24/25 8:55:00 EDT, Weight Dosing Start Date: 01/29/25 Status: Ordered Quantity: 8.0 Unit: g Repeatnumber: 2 Indications: Moderate persistent asthma, uncomplicated;albuterol 0.83 mg/ml inhalation solution (20 sources)beta2-Adrenergic AgonistStart: 38-52-7921caqd 2.5 mg by inhalation every six hoursalbuterol 0.083% Inh [place] 3 mL 2.5 mg, 3 mL, NEB, q6hr Shortness of breath or wheezing, 100 EA, Refill(s) 1, [facility], 168, cm, 04/09/25 11:43:00 EDT, Height/Length Dosing, 160.8, kg, 04/09/25 11:43:00 EDT, Weight Dosing Start Date: 04/09/25 Status: Ordered Quantity: 100.0 Unit: EA R epeat number: 2 Indications: Moderate persistent asthma, uncomplicated;Start: 89-96-8283evwq 2.5 mg by inhalation every six hoursalbuterol 0.083% Inh [place] 3 mL 2.5 mg, 3 mL, Inhalation, q6hr Shortness of breath or wheezing, 100 EA, Refill(s) 1, [facility] #[id number], 168, cm, 10/11/23 14:32:00 EDT, Height/Length Dosing, 160.2, kg, 10/11/23 14:32:00 EDT, Weight Dosing Start Date: 10/11/23 Status: OrderedStart: 82-82-6173jidvcdtjn (PROVENTIL) nebulizer solution 2.5 mg Start: 77-58-2682uyxshrmnn (PROVENTIL) nebulizer solution 2.5 mgStart: 65-58-8431jejmgfvfe (PROVENTIL) nebulizer solution 2.5 mgtake 2 puff(s) [...] HFA) 90 mcg/inh inhalation aerosol (12 sources)Start: 97-00-6117fnhq 2 puff(s) by inhalation every six hours Albuterol (Eqv-Ventolin HFA) 90 mcg/inh inhalation aerosol 2 puff(s), Inhalation, q6hr Shortness ofbreath or wheezing, 6.7 gm, Refill(s) 1, [facility], 168, cm, 04/09/25 11:43:00 EDT, Height/Length Dosing, 160.8, kg, 04/09/25 11:43:00 EDT, Weight Dosing Start Date: 04/09/25 Status: Ordered Quantity: 6.7 Unit: g Repeat number: 2 Indications: Chronic obstructive pulmonary disease with (acute) exacerbation;Start: 63-26-6629rgxh 2 puff(s) by inhalation every six hoursAlbuterol (Eqv-Ventolin HFA) 90 mcg/inh inhalation aerosol 2 puff(s), Inhalation, q6hr Shortness ofbreath or wheezing, 6.7 gm, Refill(s) 1, [facility] #16, 168, cm, 12/27/24 10:40:00 EDT, Height/Length Dosing, 165.6, kg, 12/27/24 10:40:00 EDT, Weight Dosing Start Date: 12/29/24 Status: Ordered Quantity: 6.7 Unit: g Repeat number: 2 Indications: Chronic obstructive pulmonary disease with (acute) exacerbation; Start: 90-75-4169sqvr 2 puff(s) by inhalation every six hoursAlbuterol (Eqv- Ventolin HFA) 90 mcg/inh inhalation aerosol 2 puff(s), Inhalation, q6hr Shortness ofbreath or wheezing, 6.7 gm, Refill(s) 3, [facility] #[id number], 168, cm, 11/27/24 14:20:00 EDT, Height/Length Dosing, 159.8, kg, 11/27/24 14:20:00 EDT, Weight Dosing Start Date: 11/27/24 Status:Ordered Quantity: 6.7 Unit: g Repeat number: 4Alcohol wipes (20 sources)Start: 62-53-6557Qvgamze wipes Alcohol wipes, See Instructions, 100 EA, 3, Use to check BS daily dx E11.9, [facility] #[id number], Supply, 163, cm, 12/30/21 11:09:00 EDT, Height/Length Dosing, 154, kg, 12/30/21 11:09:00 EDT, Weight Dosing Start Date: 04/13/22 Status: Ordered Quantity: 100.0 Unit: EA Repeat number: 4Start: 59-52-9641Btouddr wipes Alcohol wipes, See Instructions, 100 EA, 3, Use to check BS daily dx E11.9, [facility] #[id number], Supply, 163, cm, 12/30/21 11:09:00 EDT, Height/Length Dosing, 154, kg, 12/30/21 11:09:00 EDT, Weight Dosing Start Date: 04/13/22 Status: OrderedStart: 63-39-2306Amxynrl wipes Alcohol wipes, See Instructions, 300 EA, 3, Use to check BS TID and PRN dx E11.9, [facility], Supply, 170, cm, 05/27/21 8:31:00 EST, Height/Length Dosing, 157.8, kg, 05/27/21 8:31:00 EST, Weight Dosing Start Date: 06/03/21 Status: Orderedamoxicillin 875 mg / clavulanate 125 mg oral tablet (1 source)Penicillin-class AntibacterialStart: 04-09-2025 End: 10-98-9786Bgbfillye 875 mg-125 mg Tab 1 tab(s), Oral, q12hr for 7 day(s), 14 tab(s), Refill(s) 0, [facility], 168, cm, 04/09/25 11:43:00 EDT, Height/Length Dosing, 160.8, kg, 04/09/25 11:43:00 EDT, Weight Dosing Start Date: 04/09/25 Stop Date: 04/16/25 Status: Ordered Quantity: 14.0 Unit: tab(s) Repeat number: 1ARIPiprazole 5 mg oral tablet (20 sources)Atypical AntipsychoticStart: 65-25-3517ashr 1 tablet by mouth once dailyAbilify 5 mg Tab 5 mg = 1 tab(s), Oral, Daily, # 90 tab(s), Refills(s) 4, Pharmacy: [facility] #[id number], 167, cm, 02/22/24 13:09:00 EDT, Height/Length Dosing, 137, kg, 02/22/24 13:09:00 EDT, Weight Dosing Start Date: 05/07/24 Status: Ordered Quantity: 90.0 Unit: tab(s) Repeat number: 5Start: 64-01-0981tzgq 1 tablet by mouth once dailyAbilify 2 mg Tab 2 mg = 1 tab(s), Oral, Daily, # 90 tab(s), Refills(s) 3, Pharmacy: [facility] #[id number], 167.6, cm, 12/23/23 10:59:00 EDT, Height/Length Dosing, 136, kg, 12/23/23 10:59:00 EDT, Weight Dosing Start Date: 01/19/24 Status: OrderedARIPiprazole (ABILIFY PO) Abilify 0 Activeatorvastatin 80 mg oral tablet (20 sources)HMG-CoA Reductase Inhibitortake 1 tablet by mouth once daily atorvastatin 80 MG tablet Take 1 tablet by mouth Every night. Activeazithromycin 250 mg oral tablet (1 source)Macrolide AntimicrobialStart: 12-29-2024 End: 25-90-2625jqsw 1 tablet by mouth once dailyazithromycin 250 mg Tab 250 mg = 1 tab(s), Oral, Daily, X 3 day(s), # 3 tab(s), Refills(s) 0, Pharmacy: [facility], 168, cm, 12/27/24 10:40:00 EDT, Height/Length Dosing, 165.6, kg, 12/27/24 10:40:00 EDT, Weight Dosing Start Date: 12/29/24 Stop Date: 01/01/25 Status: Ordered Quantity: 3.0 Unit: tab(s) Repeat number: 1 Indications: Chronic obstructive pulmonary disease with (acute) exacerbation;Blood Pressure Kit - XL Cuff (1 source)Start: 15-80-4050Kzpnj Pressure Kit - XL Cuff Blood Pressure Kit - XL Cuff, See Instructions, 1 EA, 0, Use at home daily, [facility], Supply, 170, cm, 10/02/19 13:41:00 EDT, Height/Length Measured, 156, kg, 10/02/19 13:41:00 EDT, Weight Measured Start Date: 10/02/19 Status: Dthnyzm58 hr buPROPion hydrochloride 150 mg extended release oral tablet (3 sources)AminoketoneStart: 14-55-0242xcdb 1 tablet by mouth every twenty-four hoursbuPROPion 150 mg/24 hours XL Tab 150 mg = 1 tab(s), Oral, q24hr, # 30 tab(s), Refills(s) 0, Pharmacy: [facility]16, 168, cm, 02/04/25 13:39:00 EDT, Height/Length Dosing, 155.1, kg, 02/04/25 13:39:00 EDT, Weight Dosing Start Date: 02/04/25 Status: Ordered Quantity: 30.0 Unit: tab(s) Repeat number: 1calcium chloride 0.0014 meq/ml / potassium chloride 0.004 meq/ml / sodium chloride 0.103 meq/ml / sodium lactate 0.028 meq/ml injectable solution (2 sources)Start: 03-17-2020 End: 97-91-5163opxnjgav ringers infusioncelecoxib 200 mg oral capsule (3 sources)Nonsteroidal Anti-inflammatory DrugStart: 06-12-4377zbqw 1 capsule by mouth twice daily as needed for painCeleBREX 200 mg Cap 200 mg = 1 cap(s), Oral, BID, PRN as needed for pain, with food, # 60 cap(s), Refills(s) 0, Pharmacy: [facility] #[id number], 167, cm, 05/09/23 8:15:00 EST, Height/Length Dosing, 145.6, kg, 05/09/23 8:15:00 EST, Weight Dosing Start Date: 05/09/23 Status: Orderedcephalexin 500 mg oral capsule (4 sources)Cephalosporin AntibacterialStart: 12-29-2024 End: 36-06-6269ciwm 1 capsule by mouth four times dailycephalexin 500 mg Cap 500 mg = 1 cap(s), Oral, QID, X 8 day(s), # 32 cap(s), Refills(s) 0, Pharmacy: [facility]16, 168, cm, 12/27/24 10:40:00 EDT, Height/Length Dosing, 165.6, kg, 12/27/24 10:40:00 EDT, Weight Dosing Start Date: 12/29/24 Stop Date: 01/06/25 Status: Ordered Quantity: 32.0Unit: cap(s) Repeat number: 1 Indications: Cellulitis of unspecified part of limb;cholecalciferol 0.125 mg oral capsule (7 sources)Vitamin DStart: 74-72-0141rkkv 1 capsule by mouth once daily at mealtimeD 5000 125 MCG (5000 UT) CAPS capsule take 1 capsule by mouth once daily with food 0 10/14/2022 Activedicyclomine hydrochloride 10 mg oral capsule (7 sources)AnticholinergicStart: 37-71-7800sywf 2 capsules by mouth four times daily as needed for painBentyl 10 mg Cap 20 mg = 2 cap(s), Oral, QID, PRN Pain, # 21 cap(s), Refills(s) 0, Pharmacy: [facility] #[id number], 168, cm, 07/11/24 11:16:00 EST, Height/Length Dosing, 152.8, kg, 07/11/24 11:21:00 EST, Weight Dosing Start Date: 07/11/24 Status: OrderedDulaglutide (20 sources)GLP-1 Receptor AgonistStart: 73-77-8991Qtizerpybup (Trulicity) 3 mg/0.5 mL pen injector Active MG SUBCUT April 03, 2025 12:00am Complies with drug therapyStart: 76-75-8964ssaujh 3 mg by subcutaneous injection every week Trulicity Pen 3 mg/0.5 mL subcutaneous solution See Instructions, inject 3 (THREE) mg under the skin EVERY week, # 2 mL, Refills(s) 3, Pharmacy: [facility]16, 168, cm, 03/12/25 13:02:00EDT, Height/Length Dosing, 154.2, kg, 03/12/25 13:02:00 EDT, Weight Dosing Start Date: 04/01/25 Status: Ordered Quantity: 2.0 Unit: mL Repeat number: 1Start: 87-05-2967eierno 3 mg by subcutaneous injection every weekTrulicity Pen 3 mg/0.5 mL subcutaneous solution See Instructions, INJECT 3 (THREE) MG UNDER THE SKIN EVERY WEEK., # 2 mL, Refills(s) 0, Pharmacy: [facility] #16, 168, cm, 02/04/25 13:39:00 EDT, Height/Length Dosing, 155.1, kg, 02/04/25 13:39:00 EDT, Weight Dosing Start Date: 02/25/25 Status: Ordered Quantity: 2.0 Unit: mL Repeat number: 1Start: 96-99-0113swqgsd 3 mg by subcutaneous injection every weekTrulicity Pen 3 mg/0.5 mL subcutaneous solution See Instructions, ADMINISTER 3 MG UNDER THE SKIN EVERY WEEK, # 2 mL, Refills(s) 0, Pharmacy: [facility] #16, 168, cm, 01/29/25 8:19:00 EDT,Height/Length Dosing, 159, kg, 01/24/25 8:55:00 EDT, Weight Dosing Start Date: 01/29/25 Status: Ordered Quantity: 2.0 Unit: mL Repeat number: 1Start: 40-99-7460uhpmvs 3 mg by subcutaneous injection every week Trulicity Pen 3 mg/0.5 mL subcutaneous solution See Instructions, ADMINISTER 3 MG UNDER THE SKIN EVERY WEEK, # 2 mL, Refills(s) 0, Pharmacy: [facility] #[id number], 168, cm, 11/27/24 14:20:00 EDT, Height/Length Dosing, 159.8, kg, 11/27/24 14:20:00 EDT, Weight Dosing Start Date: 12/17/24 Status:Ordered Quantity: 2.0 Unit: mL Repeat number: 1Start: 17-12-9734ufluvw 3 mg by subcutaneous injection every weekTrulicity Pen 3 mg/0.5 mL subcutaneous solution 3 mg, SubCutaneous, qWeek, # 2 mL, Refills(s) 2, Pharmacy: [facility] #[id number], 168, cm, 09/12/24 13:00:00 EDT, Height/Length Dosing, 154.1, kg, 09/12/24 13:00:00 EDT, Weight Dosing Start Date: 10/01/24 Status: Ordered Quantity: 2.0 Unit: mL Repeat number: 3 Indications: Type 2 diabetes mellitus with other specified complication;Start: 48-38-1236pgklaf 3 mg by subcutaneous injection every weekTrulicity Pen 3 mg/0.5 mL subcutaneous solution 3 mg, SubCutaneous, qWeek, # 4 EA, Refills(s) 2, Pharmacy: [facility] #[id number], 167, cm, 02/22/24 13:09:00 EDT, Height/Length Dosing, 137, kg, 02/22/24 13:09:00 EDT, Weight Dosing Start Date: 02/22/24 Status: OrderedStart: 01-17-2024 Trulicity Pen 1.5 mg/0.5 mL subcutaneous solution See Instructions, inject 1 AND 1/2 milligrams subcutaneously weekly, # 2 mL, Refills(s) 0, Pharmacy: [facility] #[id number], 167.6, cm, 12/23/23 10:59:00 EDT, Height/Length Dosing, 136, kg, 12/23/23 10:59:00 EDT, Weight Dosing Start Date: 01/17/24 Status: OrderedStart: 67-50-9415wpjleg 1.5 mg by subcutaneous injection every weekTrulicity Pen 1.5 mg/0.5 mL subcutaneous solution 1.5 mg, SubCutaneous, qWeek, # 4 EA, Refills(s) 0, [facility]acy: [facility] #[id number], 168, cm, 12/06/23 14:55:00 EDT, Height/Length Dosing, 139, kg, 12/05/2413:55:00 EDT, Weight Dosing Start Date: 12/22/23 Status: OrderedStart: 36-93-8891seedvg 1.5 mg by subcutaneous injection every week Trulicity Pen 1.5 mg/0.5 mL subcutaneous solution 1.5 mg, SubCutaneous, qWeek, # 4 EA, Refills(s) 0, [facility]acy: [facility] #[id number], 168, cm, 10/11/23 14:32:00 EDT, Height/Length Dosing, 160.2, kg, 10/11/23 14:32:00 EDT, Weight Dosing Start Date: 10/11/23 Status: OrderedStart: 49-22-6637Oxcjshvsche 0.75 MG/0.5ML SOPN Inject 0.75 mg into the skin 0 09/13/2022 Activeempagliflozin 10 mg oral tablet (20 sources)Sodium-Glucose Cotransporter 2 InhibitorStart: 42-09-4394bncd 1 tablet by mouth once dailyEmpagliflozin (Jardiance) 10 mg tablet Active 10 MG PO Daily April 03, 2025 12:00am Complies with drug therapyStart: 20-51-7941awvq 1 tablet by mouth once dailyJardiance 10 mg oral tablet 10 mg, Oral, Daily, # 90 tab(s), Refills(s) 4, Pharm[facility]: [facility] #[id number], 168, cm, 09/12/24 13:00:00 EDT, Height/Length Dosing, 154.1, kg, 09/12/24 13:00:00 EDT, Weight Dosing Start Date: 10/26/24 Status: Ordered Quantity: 90.0 Unit: tab(s) Repeat number: 5FLUoxetine 20 mg oral capsule (20 sources)Serotonin Reuptake InhibitorStart: 73-22-4706vush 40 mg by mouth once dailyFluoxetine Active 40 MG PO Daily September 10, 2022 1:00amStart: 67-43-1771sgxi 2 capsules by mouth once dailyFLUoxetine 20 mg Cap 40 mg = 2 cap(s), Oral, Daily, # 180 cap(s), Refills(s) 4, Pharmacy: [facility] #16, 168, cm, 01/29/25 8:19:00 EDT, Height/Length Dosing, 159, kg, 01/24/25 8:55:00 EDT, Weight Dosing Start Date: 01/29/25 Status: Ordered Quantity: 180.0 Unit: cap(s) Repeat number: 5take 1 capsule by mouth once dailyFLUoxetine (PROZAC) 40 MG capsule Take 1 capsule by mouth nightly 0 Activefluticasone propionate 0.05 mg/actuat metered dose nasal spray (1 source)CorticosteroidStart: 54-90-7443Oszilcx 0.05 mg/inh [place] 2 spray(s), Nasal, Daily, 16 gram, Refill(s) 0, each nostril, [facility] #16, 168, cm, 04/09/25 11:43:00 EDT, Height/Length Dosing, 160.8, kg, 04/09/25 11:43:00 EDT, Weight Dosing Start Date: 04/09/25 Status: Ordered Quantity: 16.0 Unit: g Repeat number: 1fluticasone / salmeterol (20 sources)Corticosteroid, beta2-Adrenergic AgonistStart: 11-27-2024 End: 66-90-6526cwdl 1 puff(s) by inhalation twice dailyAdvair Diskus 250 mcg-50 mcg inhalation powder 1 puff(s), Inhalation, BID for 30 day(s), 60 blister(s), Refill(s) 0, [facility] #[id number], 168, cm, 11/27/24 14:20:00 EDT, Height/Length Dosing,159.8, kg, 11/27/24 14:20:00 EDT, Weight Dosing Start Date: 11/27/24 Stop Date: 12/27/24 Status: Ordered Quantity: 60.0 Unit: blister(s) Repeat number: 1Start: 31-73-5790Xncuqoyjola-Salmeterol (ADVAIR DISKUS IN) See Instructions, Refill(s) 0 0 09/16/2022 ActiveStart: 22-37-3215Rhavbx Diskus 100 mcg-50 mcg inhalation powder See Instructions, Refill(s) 0 Start Date: 09/16/22 Status: OrderedStart: 61-82-8188Karuc: 73-10-7737Derkxcnrpry Propion-Salmeterol (Advair Diskus) 100-50 mcg/dose blister with device Active 1 INH INHALATION Twice daily 60 September 14, 2022 12:00amfurosemide 40 mg oral tablet (20 sources)Loop DiureticStart: 49-88-5893thic 1 tablet by mouth twice daily furosemide 40 mg Tab 40 mg = 1 tab(s), Oral, BID, # 60 tab(s), Refills(s) 2, Pharmacy: [facility] #16, 168, cm, 01/01/25 13:49:00 EDT, Height/Length Dosing, 161.7, kg, 01/01/25 13:49:00 EDT, Weight Dosing Start Date: 01/01/25 Status: Ordered Quantity: 60.0 Unit: tab(s) Repeat number: 3 Ind ications: Unspecified diastolic (congestive) heart failure; Localized edema; Start: 98-22-1144jfku 1 tablet by mouth twice dailyfurosemide 40 mg Tab 40 mg = 1 tab(s), Oral, BID, # 60 tab(s), Refills(s) 0, Pharmacy: [facility] #16, 168, cm, 12/27/24 10:40:00 EDT, Height/Length Dosing, 165.6, kg, 12/27/24 10:40:00 EDT, Weight Dosing Start Date: 12/29/24 Status: Ordered Quantity: 60.0 Unit: tab(s) Repeat number: 1 Indications: Localized edema; Acute on chronic diastolic (congestive) heart failure;Start: 30-29-1848qopt 1 tablet by mouth once dailyfurosemide 40 mg Tab 40 mg = 1 tab(s), Oral, Daily, # 90 tab(s), Refills(s) 1, Pharmacy: [facility] #[id number], 168, cm, 06/05/24 13:03:00 EST, Height/Length Dosing, 145.9, kg, 06/05/24 13:03:00 EST, Weight Dosing Start Date: 06/05/24 Status: Ordered Quantity: 90.0 Unit: tab(s) Repeat number: 2 Indications: Localized edema;Start: 95-88-1059Ineez 20 mg Tab 20 mg = 1 tab(s), Oral, As Directed, # 30 tab(s), Refills(s) 1, [facility]acy: [facility] #[id number], 167, cm, 09/29/22 11:37:00 EDT, Height/Length Dosing, 149.2, kg, 09/29/22 11:37:00 EDT, Weight Dosing Start Date: 09/29/22 Status: OrderedStart: 78-82-5913rvip 1 tablet by mouth once dailyfurosemide 40 mg Tab 40 mg = 1 tab(s), Oral, Daily, # 90 tab(s), Refills(s) 1, Pharmacy: [facility] #[id number], 167.6, cm, 12/23/23 10:59:00 EDT, Height/Length Dosing, 136, kg, 12/23/23 10:59:00 EDT, Weight Dosing Start Date: 01/31/24 Status: OrderedStart: 69-28-7966jemn 2 tablets by mouth once daily Lasix 20 mg Tab 40 mg = 2 tab(s), Oral, Daily, Take with potassium supplment., # 180 tab(s), Refills(s) 5, Pharmacy: [facility] #[id number], 163, cm, 08/20/22 14:05:00 EST, Height/Length Dosing, 155, kg, 08/20/22 14:05:00 EST, Weight Dosing Start Date: 08/20/22 Status: OrderedStart: 07-27-2021 End: 52-47-0459xktd 1 tablet by mouth once dailyFurosemide 20 mg Tablet Discontinued 20 MG PO Daily September 10, 2022 1:00am September 14, 2022 11:24am gabapentin 800 mg oral tablet (20 sources)Anti-epileptic AgentStart: 64-18-5132bdmt 1 tablet by mouth three times dailyGabapentin 800 mg tablet Active 800 MG PO Three times daily April 03, 2025 12:00am Complies withdrug therapyStart: 22-91-2076bljgepgbvj 300 mg Cap 300 mg = 1 cap(s), TID, Refills(s) 0 Start Date: 02/22/24 Status: Ordered Repeat number: 1glipiZIDE er 2.5 mg 24 hr extended release oral tablet (20 sources)SulfonylureaStart: 83-79-9112ozmi 1 tablet by mouth once daily glipiZIDE 2.5 mg ER Tab 2.5 mg = 1 tab(s), Oral, Daily, # 90 tab(s), Refills(s) 3, Pharmacy: [facility] #16, 168, cm, 04/09/25 11:43:00 EDT, Height/Length Dosing, 160.8, kg, 04/09/25 11:43:00 EDT, Weight Dosing Start Date: 04/09/25 Status: Ordered Quantity: 90.0 Unit: tab(s) Repeat number: 4Start: 11-48-3460htqw 1 tablet by mouth once dailyglipiZIDE 2.5 mg ER Tab 2.5 mg = 1 tab(s), Oral, Daily, # 90 tab(s), Refills(s) 1, Pharmacy: [facility] #[id number], 168, cm, 11/27/24 14:20:00 EDT, Height/Length Dosing, 159.8, kg, 11/27/24 14:20:00 EDT, Weight Dosing Start Date: 11/27/24 Status: Ordered Quantity: 90.0 Unit: tab(s) Repeat number: 2Start: 54-30-7866rqbc 1 tablet by mouth once dailyglipiZIDE 2.5 MG tablet XL Take 1 tablet by mouth daily. 12/20/2023 ActiveStart: 87-90-8659nnue 1 tablet by mouth once dailyglipiZIDE 2.5 mg ER Tab 2.5 mg = 1 tab(s), Oral, Daily, # 90 tab(s), Refills(s) 1, Pharmacy: [facility], 163, cm, 12/30/21 11:09:00 EDT, Height/Length Dosing, 154, kg, 12/30/21 11:09:00 EDT, Weight Dosing Start Date: 12/30/21 Status: OrderedGlucometer (20 sources)Start: 78-53-6555Qikbtexubf Glucometer, See Instructions, 1 EA, 0, Glucometer to test BS TID and PRN dx E11.9, [facility], Supply, 170, cm, 05/27/21 8:31:00 EST, Height/Length Dosing, 157.8, kg, 05/27/21 8:31:00 EST, Weight Dosing Start Date: 06/03/21 Status: Ordered Quantity: 1.0 Unit: EA Repeat number:1Start: [id number] Glucometer, See Instructions, 1 EA, 0, Glucometer to test BS TID and PRN dx E11.9, [facility]AN[facility] RAYA-Erica ARRIAGA, Supply, 170, cm, 05/27/21 8:31:00 EST, Height/Length Dosing, 157.8, kg, 05/27/21 8:31:00 EST, Weight Dosing Start Date: 06/03/21 Status: OrderedGlucose (1 source)Start: [id number] Kit Glucose Kit, See Instructions, 1 EA, 0, Glucose meter. Include autolet, matching test strips, lancets, & alcohol wipes, #300 or as allowed by insurance; Test TID and PRN. DX: E11.9, AMANDA RAYA-Erica Colon WALLACE , Supply, 170, cm, 05/27/21 8:31:00 EST, Height... Start Date: 06/03/21 Status: OrderedhydroCHLOROthiazide 50 mg oral tablet (20 sources)Thiazide DiureticStart: 71-98-2594dqmr 1 tablet by mouth once daily hydrochlorothiazide 50 mg Tab 50 mg = 1 tab(s), Oral, Daily, # 90 tab(s), Refills(s) 1, [facility]: [id number], 163, cm, 12/30/21 11:09:00 EDT, Height/Length Dosing, 154, kg, 12/30/21 11:09:00 EDT, Weight Dosing Start Date: 04/13/22 Status: OrderedStart: 60-26-7879yinp 1 tablet by mouth once daily hydrochlorothiazide 50 mg Tab 50 mg = 1 tab(s), Oral, Daily, # 30 tab(s), Refills(s) 5, Pharmacy: [facility] [employer] [facility] , 170, cm, 07/28/21 10:34:00 EST, Height/Length Dosing, 152, kg, 07/28/21 10:34:00 EST, Weight Dosing Start Date: 08/03/21 Status: Orderedtake 2 tablets by mouth once dailyhydroCHLOROthiazide (HYDRODIURIL) 25 MG tablet Take 2 tablets by mouth daily 0 Activetake 1 tablet by mouth once dailyhydroCHLOROthiazide (HYDRODIURIL) 25 MG tablet Take 25 mg by mouth daily 0 Activeicosapent ethyl 1000 mg oral capsule (1 source)Start: 98-27-4874Jtdiayp 1 g oral capsule 2 gram = 2 cap(s), Oral, BID, # 120 cap(s), Refills(s) 5, Pharmacy: [facility], 170, cm, 05/27/21 8:31:00 EST, Height/Length Dosing, 157.8, kg, 05/27/21 8:31:00 EST, Weight Dosing Start Date: 05/29/21 Status: Orderedloratadine 10 mg oral tablet (20 sources)Start: 98-45-6997vtns 1 tablet by mouth once daily as needed loratadine 10 mg Tab 10 mg = 1 tab(s), Oral, Daily, PRN as needed for allergy symptoms, # 90 tab(s), Refills(s) 3, Pharmacy: [facility] #[id number], 163, cm, 12/30/21 11:09:00 EDT, Height/Length Dosing, 154, kg, 12/30/21 11:09:00 EDT, Weight Dosing Start Date: 04/13/22 Status: Orderedlosartan potassium 50 mg oral tablet (18 sources)Angiotensin 2 Receptor BlockerStart: 54-82-7339dmzn 1 tablet by mouth once dailymeloxicam (7 sources)Nonsteroidal Anti-inflammatory DrugMELOXICAM PO Meloxicam 0 Active metFORMIN hydrochloride 500 mg oral tablet (18 sources)BiguanideStart: 47-97-2137jywh 1 tablet by mouth twice daily at mealtimemetformin 500 mg oral tablet 500 mg = 1 tab(s), Oral, BID, with meals, # 60 tab(s), Refills(s) 2, Pharmacy: [facility], 170, cm, 07/28/21 10:34:00 EST, Height/Length Dosing, 152, kg, 07/28/21 10:34:00 EST, Weight Dosing Start Date: 08/24/21 Status: OrderedmethylPREDNISolone 4 mg oral tablet (1 source)CorticosteroidStart: 04-09-2025 End: 78-47-3368Rbhtou 4 mg Tab = 1 packet(s), Oral, As Directed, as directed on package labeling, X 6 day(s), # 21tab(s), Refills(s) 0, [facility]acy: [facility], 168, cm, 04/09/25 11:43:00 EDT, Height/Length Dosing, 160.8, kg, 04/09/25 11:43:00 EDT, Weight Dosing Start Date: 04/09/25 Stop Date: 04/15/25 Status: Ordered Quantity: 21.0 Unit: tab(s) Repeat number: 1montelukast 10 mg oral tablet (20 sources)Leukotriene Receptor AntagonistStart: 29-10-3015jyyx 1 tablet by mouth once daily in the eveningSingulair 10 mg Tab 10 mg = 1 tab(s), Oral, qPM, # 90 tab(s), Refills(s) 2, Pharmacy: [facility], 168, cm, 04/09/25 11:43:00 EDT, Height/Length Dosing, 160.8, kg, 04/09/25 11:43:00 EDT, Weight Dosing Start Date: 04/09/25 Status: Ordered Quantity: 90.0 Unit: tab(s) Repeat number: 3Start: 95-96-6281kboy 1 tablet by mouth once daily in the eveningSingulair 10 mg Tab 10 mg = 1 tab(s), Oral, qPM, # 30 tab(s), Refills(s) 2, Pharmacy: [facility], 170, cm, 10/16/19 9:09:00 EDT, Height/Length Measured, 154.3, kg, 10/16/19 9:09:00 EDT, Weight Measured Start Date: 10/16/19 Status: Fcpgjng20 hr nicotine 0.875 mg/hr transdermal system (9 sources)Cholinergic Nicotinic AgonistStart: 01-02-2025 End: 34-13-6283nyjrcrno 21 mg/24 hr Transderm ER Film 1 patch(es), Topical, q24hr for 21 day(s), 21 patch(es), Refill(s) 0, wear only one patch at a time, for 24 hours only, [facility], 168, cm, 01/02/25 13:43:00 EDT, Height/Length Dosing, 159, kg, 01/02/25 13:43:00 EDT, Weight Dosing Start Date: 01/02/25 Stop Date: 01/23/25 Status: Ordered Quantity: 21.0 Unit: patch(es) Repeat number: 1Start: 09-22-2022 End: 56-44-5173hiajjnyv 21 mg/24 hr Transderm ER Film 1 patch(es), Topical, Daily for 14 day(s), 14 EA, Refill(s) 0, [facility] #[id number], 167, cm, 09/22/22 8:24:00 EDT, Height/Length Dosing, 157.4, kg, 09/22/22 8:24:00EDT, Weight Dosing Start Date: 09/22/22 Stop Date: 10/06/22 Status: Orderednystatin 100 unt/mg topical powder (3 sources)Polyene AntifungalStart: 89-38-1915smrclwus Top 100,000 units/g Pwdr 1 beto, Topical, BID, 15 gram, Refill(s) 1, [facility], 168, cm, 01/02/25 13:43:00 EDT, Height/Length Dosing, [...] release oral tablet (20 sources)Proton Pump InhibitorStart: 08-65-4548ykrz 1 tablet by mouth once dailyPantoprazole [address] Tab 40 mg = 1 tab(s), Oral, Daily, # 90 tab(s), Refills(s) 4, Pharmacy: [facility], 168, cm, 01/02/25 13:43:00 EDT, Height/Length Dosing, 159, kg, 01/02/25 13:43:00 EDT, Weight Dosing Start Date: 01/15/25 Status: Ordered Quantity: 90.0 Unit: tab(s) Repeat number: 5Start: 68-38-9098loqs 1 tablet by mouth once dailyPantoprazole [address] Tab 40 mg = 1 tab(s), Oral, Daily, # 90 tab(s), Refills(s) 3, Pharmacy: [facility] #[id number], 167, cm, 02/22/24 13:09:00 EDT, Height/Length Dosing, 137, kg, 02/22/24 13:09:00 EDT, Weight Dosing Start Date: 05/07/24 Status: Ordered Quantity: 90.0 Unit: tab(s) Repeat number: 4rosuvastatin calcium 40 mg oral tablet (20 sources)HMG-CoA Reductase InhibitorStart: 91-03-8707kicu 1 tablet by mouth once dailyCrestor 40 mg Tab 40 mg = 1 tab(s), Oral, Daily, # 90 tab(s), Refills(s) 3, Pharmacy: [facility], 168, cm, 04/09/25 11:43:00 EDT, Height/Length Dosing, 160.8, kg, 04/09/25 11:43:00 EDT, Weight Dosing Start Date: 04/09/25 Status: Ordered Quantity: 90.0 Unit: tab(s) Repeat number: 4 Ind ications: Mixed hyperlipidemia;Start: 24-61-0677zhcw 1 tablet by mouth once dailyCrestor 40 mg Tab 40 mg = 1 tab(s), Oral, Daily, # 90 tab(s), Refills(s) 3, Pharmacy: [facility] #[id number], 168, cm, 11/27/24 14:20:00 EDT, Height/Length Dosing, 159.8, kg, 11/27/24 14:20:00 EDT, Weight Dosing Start Date: 11/27/24 Status: Ordered Quantity: 90.0 Unit: tab(s) Repeat number: 4 In dications: Mixed hyperlipidemia;Start: 47-85-9825qqhx 1 tablet by mouth once dailyCrestor 40 MG tablet Take 1 tablet by mouth daily. 06/05/2024 ActiveStart: 26-92-7589adsy 1 tablet by mouth once dailyCrestor 40 mg Tab 40 mg = 1 tab(s), Oral, Daily, # 90 tab(s), Refills(s) 3, [facility]: [facility] #[id number], 167, cm, 05/09/23 8:15:00 EST, Height/Length Dosing, 145.6, kg, 05/09/23 8:15:00 EST, Weight Dosing Start Date: 06/28/23 Status: OrderedStart: 30-86-3343nqbt 1 tablet by mouth once dailyCrestor 40 mg Tab 40 mg = 1 tab(s), Oral, Daily, # 30 tab(s), Refills(s) 5, Pharmacy: [facility] [place] [address], 163, cm, 12/30/21 11:09:00 EDT, Height/Length Dosing, 154, kg, 12/30/21 11:09:00 EDT, Weight Dosing Start Date: 12/30/21 Status: Orderedsacubitril 24 mg / valsartan 26 mg oral tablet (18 sources)Angiotensin 2 Receptor BlockerStart: 09-29-2022 End: 14-46-4248ayhr 1 tablet by mouth twice dailyENTRESTO 24-26 MG per tablet take 1 tablet by mouth twice a day (STOP LOSARTAN 50MG) 0 11/30/2022 Active0.25 mg, 0.5 mg dose 1.5 ml semaglutide 1.34 mg/ml pen injector (9 sources)Start: 85-27-4926Brjkfzopjjk,0.25 or 0.5MG/DOS, 2 MG/1.5ML SOPN Inject 0.25 mg into the skin 0 09/06/2022 Active3 ml sodium chloride 9 mg/ml injection (2 sources)Start: 85-05-6682dhihuw chloride flush 0.9 % injection 10 mLStart: 03-46-3782ddztvk chloride flush 0.9 % injection 10 mLspironolactone 25 mg oral tablet (20 sources)Aldosterone AntagonistStart: 48-07-7651ekqo 1 tablet by mouth once dailyspironolactone 25 mg Tab 25 mg = 1 tab(s), Oral, Daily, # 90 tab(s), Refills(s) 4, Pharmacy: [facility], 168, cm, 01/02/25 13:43:00 EDT, Height/Length Dosing, 159, kg, 01/02/25 13:43:00 EDT, Weight Dosing Start Date: 01/15/25 Status: Ordered Quantity: 90.0 Unit: tab(s) Repeat number:5 Indications: Essential (primary) hypertension;Start: 55-84-2140gxsy 1 tablet by mouth once dailyspironolactone 25 mg Tab 25 mg = 1 tab(s), Oral, Daily, # 90 tab(s), Refills(s) 1, Pharmacy: [facility] #[id number], 168, cm, 06/05/24 13:03:00 EST, Height/Length Dosing, 145.9, kg, 06/05/24 13:03:00 EST, Weight Dosing Start Date: 06/05/24 Status: Ordered Quantity: 90.0 Unit: tab(s) Repeat number: 2 Indications: Essential (primary) hypertension;Start: 12-14-2022 End: 14-21-2612fpmb 1 tablet by mouth once dailyspironolactone 25 mg Tab 25 mg = 1 tab(s), Oral, Daily, X 90 day(s), # 90 tab(s), Refills(s) 1, [facility]acy: [facility] #[id number], 168, cm, 10/11/23 14:32:00 EDT, Height/Length Dosing, 160.2, kg, 10/11/23 14:32:00 EDT, Weight Dosing Start Date: 10/11/23 Stop Date: 04/08/24 Status: OrderedStart: 75-15-5629coux 1 tablet by mouth twice dailyspironolactone 25 mg Tab 25 mg = 1 tab(s), Oral, BID, # 60 tab(s), Refills(s) 4, Pharmacy: [facility]#[id number], 163, cm, 09/06/22 11:28:00 EST, Height/Length Dosing, 154, kg, 09/06/22 11:28:00 EST, Weight Dosing Start Date: 09/20/22 Status: OrderedStart: 78-51-1335rnfg 1 tablet by mouth twice dailyspironolactone 25 mg Tab 25 mg = 1 tab(s), Oral, BID, # 60 tab(s), Refills(s) 0, [id number], 163, cm, 08/20/22 14:05:00 EST, Height/Length Dosing, 155, kg, 08/20/22 14:05:00 EST, Weight Dosing Start Date: 08/23/22 Status: OrderedSymbicort 160/4.5 inhalation aerosol with adapter (5 sources)Start: 85-02-9758Pzrofiuhd 160/4.5 inhalation aerosol with adapter 2 puff(s), Inhalation, BID, 1 EA, Refill(s) 5, rinse mouth and throat after use, [facility] #[id number], 163, cm, 12/30/21 11:09:00 EDT, Height/Length Dosing, 154, kg, 12/30/21 11:09:00 EDT, Weight Dosing Start Date: 07/23/22 Status: OrderedStart: 72-07-6237lfvy 2 puff(s) by inhalation twice dailySymbicort 160/4.5 inhalation aerosol with adapter 2 puff(s), Inhalation, BID, 1 EA, Refill(s) 5, rinse mouth and throat after use, [facility], 170, cm, 07/28/21 10:34:00 EST, Height/Length Dosing, 152, kg, 07/28/21 10:34:00 EST, Weight Dosing Start Date: 10/26/21 Status: Bizryem02 actuat tiotropium 0.49171 mg/actuat inhalation spray (20 sources)AnticholinergicStart: 27-33-5804xndb 2 puff(s) by inhalation once dailySpiriva Respimat [...] oral tablet (20 sources)Central alpha-2 Adrenergic AgonistStart: 08-66-6744yjgg 1 tablet by mouth every eight hours as needed for muscle spasmstiZANidine 4 mg Tab 4 mg = 1 tab(s), Oral, q8hr, PRN Spasm, # 30 tab(s), Refills(s) 0, [id number], 167, cm, 05/09/23 8:15:00 EST, Height/Length Dosing, 145.6, kg, 05/09/23 8:15:00 EST,Weight Dosing Start Date: 05/09/23 Status: OrderedStart: 04-26-2023 take 1 tablet by mouth every eight hours as needed for muscle spasmstiZANidine 4 mg Tab 4 mg = 1 tab(s), Oral, q8hr, PRN Spasm, # 20 tab(s), Refills(s) 0, [facility][id number], 167, cm, 04/26/23 11:10:00 EDT, Height/Length Dosing, 141.8, kg, 04/26/23 11:10:00 EDT, Weight Dosing Start Date: 04/26/23 Status: OrderedtraMADol hydrochloride 50 mg oral tablet (4 sources)Opioid AgonistStart: 23-69-6624ryyd 1 tablet by mouth every six hours as needed for paintraMADOL 50 mg Tab 50 mg = 1 tab(s), Oral, q6hr, PRN for pain, # 28 tab(s), Refills(s) 0, [id number], 167.6, cm, 12/23/23 10:59:00 EDT, Height/Length Dosing, 136, kg, 12/23/23 10:59:00EDT, Weight Dosing Start Date: 01/09/24 Status: OrderedStart: 37-21-6511lpia 1 tablet by mouth every six hours as needed for paintraMADOL 50 mg Tab 50 mg = 1 tab(s), Oral, q6hr, PRN for pain, # 28 tab(s), Refills(s) 0, [id number], 168, cm, 11/25/23 14:36:00 EDT, Height/Length Dosing, 141.8, kg, 11/25/23 14:36:00EDT, Weight Dosing Start Date: 11/25/23 Status: OrderedtraZODone hydrochloride 50 mg oral tablet (20 sources)Serotonin Reuptake InhibitorStart: 68-64-5259ixod 1 tablet by mouth once daily at bedtimetraZODONE 50 mg Tab 50 mg = 1 tab(s), Oral, Once a day (at bedtime), # 30 tab(s), Refills(s) 0, [id number], 168, cm, 10/11/23 14:32:00 EDT, Height/Length Dosing, 160.2, kg, 10/11/23 14:32:00 EDT, Weight Dosing Start Date: 10/11/23 Status: OrderedStart: 59-86-3717khkn 1 tablet by mouth once daily at bedtimetraZODONE 50 mg Tab 50 mg = 1 tab(s), Oral, Once a day (at bedtime), # 30 tab(s), Refills(s) 0, [id number], 167, cm, 08/10/23 14:24:00 EST, Height/Length Dosing, 151.4, kg, 08/10/23 14:24:00 EST, Weight Dosing Start Date: 08/10/23 Status: OrderedStart: 09-51-2015qlbp 2 tablets by mouth once daily at bedtime as neededtraZODONE 150 mg Tab 300 mg = 2 tab(s), Oral, Once a day (at bedtime), PRN Insomnia, # 180 tab(s), Refills(s) 1, [facility]: [facility], 170, cm, 10/13/20 9:06:00 EDT, Height/Length Dosing,153.3, [...] ActiveTrulicity 3 MG/0.5ML Solution Auto-injector (1 source)Start: 93-06-3851lkjmej 3 mg by subcutaneous injection every week Trulicity 3 MG/0.5ML Solution Auto-injector Inject 3 mg under the skin once a week. 10/26/2024 Activevarenicline 1 mg oral tablet (16 sources)Partial Cholinergic Nicotinic AgonistStart: 92-70-5173taxt 1 tablet by mouth twice daily after mealtimevarenicline 1 mg oral tablet 1 mg = 1 tab(s), Oral, BID, after meals, # 60 tab(s), Refills(s) 4, [id number], 167.5, cm, 10/18/22 13:30:00 EDT, Height/Length Dosing, [...] varenicline, # 11 tab(s), Refills(s) 0, Pharmacy: [facility] #[id number], 167.5, cm, 10/18/22 13:30:00 EDT, Height/Length Dosing, 147, kg, 10/18/22 13:30:00 EDT, Weight Dosing Start Date: 10/18/22 Status: Ordered Completed/Discontinued Medications MedicationDrug Class(es)DatesSig (Normalized)Sig (Original)Bariatric transfer bench shower chair w/back rest (3 sources)Start: 93-20-6726Pbywxtwhh transfer bench shower chair w/back rest Bariatric [...] inhaler (20 sources)Corticosteroid, beta2-Adrenergic AgonistStart: 09-11-2019 End: 41-41-8319nnrj 2 puff(s) by inhalation twice dailybudesonide-formoterol (SYMBICORT) 80-4.5 MCG/ACT AERO Inhale 2 puffs into the lungs 2 times daily 1 Inhaler 3 09/11/2019 03/17/2020 Discontinued (LIST CLEANUP)take 2 puff(s) by inhalation twice dailybudesonide-formoterol (SYMBICORT) 160-4.5 MCG/ACT AERO Inhale 2 puffs into the lungs 2 times daily 0 Activefluconazole 150 mg oral tablet (3 sources)Azole AntifungalStart: 02-30-1606Bfvltvii 150 mg Tab 150 mg = 1 tab(s), Oral, Once, one tablet now and repeat in 72 hours, # 2 tab(s), Refills(s) 0, Pharmacy: [facility], 168, cm, 01/02/25 13:43:00 EDT, Height/LengthDosing, 159, kg, 01/02/25 13:43:00 EDT, Weight Dosing Start Date: 01/02/25 Status: Ordered Quantity: 2.0 Unit: tab(s) Repeat number: 1iohexol (OMNIPAQUE 240) injection 20 mL (1 source)Start: 02-07-2020 End: 34-48-6853hmdddjb (OMNIPAQUE 240) injection 20 mLiopamidol (ISOVUE-370) 76 % injection 75 mL (1 source)Start: 02-07-2020 End: 55-84-8218quxwzfdnr (ISOVUE-370) 76 % injection 75 mLipratropium bromide 0.2 mg/ml inhalation solution (1 source)AnticholinergicStart: 10-14-2022 End: 37-25-9171bpzwvjrfyog (ATROVENT) 0.02 % nebulizer solution 0.5 mgNebulizer Machine (20 sources)Start: 36-06-5234Kemjfpdrg Machine Nebulizer Machine, See Instructions, 1 EA, 0, Nebulizer Machine, [facility] #[id number],Supply, 168, cm, 10/11/23 14:32:00 EDT, Height/Length Dosing, 160.2, kg, 10/11/23 14:32:00 EDT, Weight Dosing Start Date: 10/11/23 Status: Ordered Quantity: 1.0 Unit: EA Repeat number: 1 Indications: Moderate persistent asthma, uncomplicated;Start: 90-00-1930Xklrhmllt Machine Nebulizer Machine, See Instructions, 1 EA, 0, Nebulizer Machine, [facility] #[id number],Supply, 168, cm, 10/11/23 14:32:00 EDT, Height/Length Dosing, 160.2, kg, 10/11/23 14:32:00 EDT, Weight Dosing Start Date: 10/11/23 Status: OrderedStart: 75-64-4100Tvmeeogpa Machine Nebulizer Machine, See Instructions, 1 EA, 0, Nebulizer Machine, [facility], Supply, 170, cm, 10/02/19 13:41:00 EDT, Height/Length Measured, 156, kg, 10/02/19 13:41:00 EDT, Weight Measured Start Date: 10/02/19 Status: Ordered Nebulizer Tubing and Mouthpiece Kit (20 sources)Start: 70-35-8956Dwwkscleu Tubing and Mouthpiece Kit Nebulizer Tubing and Mouthpiece Kit, See Instructions, 1 kit(s), 0, Nebulizer Tubing and Mouthpiece Kit, [facility] #[id number], Supply, 168, cm, 10/11/23 14:32:00 EDT, He ight/Length Dosing, 160.2, kg, 10/11/23 14:32:00 EDT, Weight Dosing Start Date: 10/11/23 Status: Ordered Quantity: 1.0 Unit: kit(s) Repeat number: 1 Indications: Moderate persistent asthma, uncomplicated;Start: 17-63-2893Ckiapoiap Tubing and Mouthpiece Kit Nebulizer Tubing and Mouthpiece Kit, See Instructions, 1 kit(s), 0, Nebulizer Tubing and Mouthpiece Kit, [facility] #[id number], Supply, 168, cm, 10/11/23 14:32:00 EDT, Height/Length Dosing, 160.2, kg, 10/11/23 14:32:00 EDT, Weight Dosing Start Date: 10/11/23 Status: OrderedStart: 21-16-8949Oujzepmrr Tubing and Mouthpiece Kit Nebulizer Tubing and Mouthpiece Kit, See Instructions, 1 kit(s), 0, Nebulizer Tubing and Mouthpiece Kit, [facility], Supply, 170, cm, 10/02/19 13:41:00 EDT, Height/Length Measured, 156, kg, 10/02/19 13:41:00 EDT, Weight Measured Start Date: 10/02/19 Status: Ordered polyethylene glycol 3350 151389 mg / potassium chloride 2970 mg / sodium bicarbonate 6740 mg / sodium chloride 5860 mg / sodium sulfate 40765 mg powder for oral solution (1 source)Osmotic LaxativeStart: 03-17-2020 End: 04-51-2603ruagxouutwhr glycol (GoLYTELY) solution 4,000 mLStart: 03-17-2020 End: 45-86-8626xxvpocfqtofi glycol (GoLYTELY) solution 4,000 mLpotassium chloride 20 meq extended release oral tablet (20 sources)Start: 54-30-4238yqpq 1 tablet by mouth once dailypotassium chloride 20 mEq ER Tab 20 mEq = 1 tab(s), Oral, Daily, Take with Lasix, # 90 tab(s), Refills(s) 4, Pharmacy: [facility], 168, cm, 01/29/25 8:19:00 EDT, Height/Length Dosing,159, kg, 01/24/25 8:55:00 EDT, Weight Dosing Start Date: 01/29/25 Status: Ordered Quantity: 90.0 Unit: tab(s) Repeat number: 5 Indications: Localized edema;Start: 29-04-8325ufqcqkgwb chloride (KLOR-CON M) 20 MEQ extended release tabletStart: 06-15-2021 End: 32-18-3262gbls 1 tablet by mouth once dailypotassium chloride 20 mEq ER Tab 20 mEq = 1 tab(s), Oral, Daily, Take with Lasix, # 90 tab(s), Refills(s) 4, Pharmacy: [facility], 168, cm, 01/29/25 8:19:00 EDT, Height/Length Dosing,159, kg, 01/24/25 8:55:00 EDT, Weight Dosing Start Date: 01/29/25 Status: Ordered Quantity: 90.0 Unit: tab(s) Repeat number: 5 Indications: Localized edema;predniSONE 10 mg oral tablet (17 sources)Start: 73-77-4727inzkwdNFMH 10 mg Tab 10 mg = 1 tab(s), Oral, As Directed, 4 tabs for 2 days,3 tabs for 2 days,2 tabs for 2 days,1 tab for 2 days, # 20 tab(s), Refills(s) 0, Pharmacy: [facility], 168,cm, 12/27/24 10:40:00 EDT, Height/Length Dosing, 165.6, kg, 12/27/24 10:40:00 EDT, Weight Dosing Start Date: 12/29/24 Status: Ordered Quantity: 20.0 Unit: tab(s) Repeat number: 1 Indications: Chronic obstructive pulmonary disease with (acute) exacerbation;Start: 18-26-8403xcoppbXLFG 20 mg Tab 20 mg = 1 tab(s), Oral, As Directed, Take three tabs by mouth for one day, then two tabs for one day, then one tab for one day, # 6 tab(s), Refills(s) 0, [id number], 167, cm, 04/26/23 11:10:00 EDT, Height/Length Dosing, [...] Refills(s) 0 Start Date: 09/16/22 Status: OrderedStart: 27-92-0073Kdwfxsed HFA 90 mcg/inh Aerosol (3 sources)Start: 19-97-4364qpmu 1 dose by inhalation four times dailyVentolin HFA 90 mcg/inh Aerosol 2 puff(s), Inhalation, QID Cough, 1 EA, Refill(s) 1, [facility] #[id number], 163, cm, 12/30/21 11:09:00 EDT, Height/Length Dosing, 154, kg, 06/29/22 11:09:00 EDT, Weight Dosing Start Date: 04/13/22 Status: OrderedStart: 44-84-9638rnxx 2 puff(s) by inhalation four times dailyVentolin HFA 90 mcg/inh Aerosol 2 puff(s), Inhalation, QID Cough, 1 EA, Refill(s) 0, [facility], 170, cm, 09/22/20 10:15:00 EDT, Height/Length Dosing, 155.5, kg, 09/22/20 10:15:00 EDT, Weight Dosing Start Date: 09/23/20 Status: OrderedVentolin HFA 90 mcg/inh Aerosol-Adpt (20 sources)Start: 38-39-7685edfb 1 dose by inhalation every six hoursVentolin HFA 90 mcg/inh Aerosol-Adpt 2 puff(s), Inhalation, q6hr for wheezing, 1 EA, Refill(s) 1, [facility] #[id number], 167, cm, 09/29/22 11:37:00 EDT, Height/Length Dosing, 149.2, kg, 09/29/22 11:37:00 EDT, Weight Dosing Start Date: 10/01/22 Status: OrderedStart: 71-75-1792qymp 2 puff(s) by inhalation every six hours for wheezingVentolin HFA 90 mcg/inh Aerosol-Adpt 2 puff(s), Inhalation, q6hr for wheezing, 18 gram, Refill(s) 1, [facility] #[id number], 163, cm, 12/30/21 11:09:00 EDT, Height/Length Dosing, 154, kg, 12/30/21 11:09:00 EDT, Weight Dosing Start Date: 07/23/22 Status: OrderedVitamin D3 5000 intl units oral capsule (20 sources)Start: 47-23-4246qqub 1 capsule by mouth once daily at mealtime Vitamin D3 5000 intl units oral capsule 5,000 International_Unit = 1 cap(s), Oral, Daily, with food, # 100 cap(s), Refills(s) 1, Pharmacy: [facility] #[id number], 170, cm, 10/13/22 9:06:00 EDT, Height/Length Dosing, 149.2, kg, 09/29/22 11:37:00 EDT, Weight Dosing Start Date: 10/14/22 Status: Ordered Problems Active Problems Problem ClassificationProblemDateDocumented DateEpisodic/ChronicAcute bronchitis (2 sources)Acute bronchitis; Translations: [Acute bronchitis, unspecified]Onset: 12-74-7220VttjsxniOcbyfswvouuikr/social admission (1 source)Patient encounter status; Translations: [Persons encountering health services in other specified circumstances]Onset: 79-76-4550HnwckfcsRebhayf- related disorders (20 sources)Alcohol abuse; Translations: [Alcohol abuse, uncomplicated]Onset: 46-92-5329FwjglsnDoaiqz (20 sources)Uncomplicated moderate persistent asthma; Translations: [Moderate persistent asthma, uncomplicated]Onset: 47-77-9788MgdkuijOhuuoj neoplasm of uterus (20 sources)Uterine aocwoakvm90-64-6078XfkjaugdRbceraq obstructive pulmonary disease and bronchiectasis (20 sources)Acute exacerbation of chronic obstructive airways disease; Translations: [Chronic obstructive pulmonary disease with (acute) exacerbation] Onset: [id number] on above:Problem List clean-up per request of Phys. EHR CmteCongestive heart failure; nonhypertensive (20 sources)Right ventricular failure; Translations: [Right heart failure, unspecified]Onset: 79-48-4859ZbbhufeUkewrmk on above:Problem List clean-up per request of Phys. EHR CmteDiabetes mellitus with complications (20 sources)Complication due to diabetes mellitus; Translations: [Type 2 diabetes mellitus with other specifiedcomplication]Onset: 93-37-9600Aewkbab Diabetes mellitus without complication (14 sources)Type 2 diabetes mellitus; Translations: [Type 2 diabetes mellitus without complications]Onset: [id number] mellitus without complication (1 source)Hyperglycemia; Translations: [Elevated blood sugar]EpisodicDisorders of lipid metabolism (20 sources)Hyperlipidemia; Translations: [Mixed hyperlipidemia]Onset: [id number] disorders (20 sources)Gastroesophageal reflux disease; Translations: [Gastroesophageal reflux disease without esophagitis]Onset: [id number]yilmi hypertension (20 sources)Essential hypertension; Translations: [Essential (primary) hypertension]Onset: 10-00-2778WyxluedJxfhb and electrolyte disorders (20 sources)Hypokalemia; Translations: [Hypokalemia]Onset: 99-97-9130Eucchpbr Gastrointestinal hemorrhage (1 source)Qtxljlpkrhwn63-64-9194QxlypezsHzwzguntrufny and screening for infectious disease (2 sources)Vaccination given; Translations: [Encounter for immunization]Onset: 34-70-7309LjvmgmudFhciohm and fatigue (1 source)Fatigue; Translations: [Other fatigue]EpisodicMiscellaneous mental health disorders (20 sources)Chronic insomnia; Translations: [Psychophysiologic insomnia]Onset: 879261-09-5372XgufqacLszt disorders (20 sources)Severe major depression, single episode, without psychotic features; Translations: [Major depressive disorder, single episode, severe without psychotic features]Onset: 59-14-5959VgjpdojUgxvlah (7 sources)Candidal paronychia ; Translations: [Candidiasis of skin and nail] Onset: 92-81-9976ShixtfetVefeewfpqvf chest pain (6 sources)Chest pain; Translations: [Chest pain, unspecified]52-00-4820Rxgcygep Comment on above:Problem List clean-up per request of Phys. EHR CmteNutritional deficiencies (20 sources)Vitamin D deficiency; Translations: [Decreased vitamin D]01-16-2019 ChronicOsteoarthritis (20 sources)Osteoarthritis; Translations: [Unspecified osteoarthritis, unspecified site]Onset: 553615-55-6434NxqiywdCalqwecjrlnflz (9 sources)Osteoarthritis of left knee joint; Translations: [Degenerative arthritis of left knee]Onset: Other aftercare (4 sources)Long-term current use of drug therapy; Translations: [Other penitentiary (current) drug therapy]Onset: 56-38-5272JukamxrkDhyho and unspecified benign neoplasm (20 sources)Tubular adenoma of hywtx48-63-0272OinrfqzuYvskm and unspecified benign neoplasm (14 sources)Polyp of colon; Translations: [Polyp of colon]Onset: 09-06-2022 EpisodicOther and unspecified benign neoplasm (20 sources)History of polyp of colon; Translations: [Personal history of colonic polyps]Onset: 75-61-4998BpssefrwVqlzy connective tissue disease (20 sources)Artificial knee joint present; Translations: [Presence of left artificial knee joint]Onset: 565142-27-5610AbkxmocBtfin connective tissue disease (1 source)History of total knee ggminwerazmz25-75-1174KyvxemzVgebc connective tissue disease (1 source)Pain in left lower limb; Translations: [Pain in left leg]Onset: 31-69-2937UyjetlvlXmofw connective tissue disease (1 source)Pain in right lower limb; Translations: [Pain in right leg]Onset: 40-42-8218FmjsooylYhtqa connective tissue disease (20 sources)Weakness of left hand; Translations: [Other symptoms and signs involving the musculoskeletal system]EpisodicOther connective tissue disease (1 source)Paraparesis; Translations: [Other symptoms and signs involving the musculoskeletal system]EpisodicOther female genital disorders (1 source)Hypertrophy of uterus; Translations: [Hypertrophy of uterus]Episodic Other female genital disorders (1 source)Enlarged nhihfx57-96-9731KrwsdsjiCmldj gastrointestinal disorders (4 sources)Diarrhea; Translations: [Diarrhea, unspecified]Onset: 07-11-2024 EpisodicOther hereditary and degenerative nervous system conditions (20 sources)Restless gkdt40-30-3494TfoflwoSasfe inflammatory condition of skin (20 sources)Granuloma jlenrzdx27-62-1623YwlbyiunSmdox liver diseases (20 sources)Steatosis of liver; Translations: [Fatty (change of) liver, not elsewhere classified]Onset: 784549-55-6803XchmsgoUvojs liver diseases (20 sources)Elevated liver enzymes awoxm30-87-9466EdshznnbSvjcs liver diseases (2 sources)Increased aspartate transaminase level; Translations: [Elevation of levels of liver transaminase levels]Onset: 33-04-8144HvhvzqpqFpzji liver diseases (20 sources)Large liver; Translations: [Hepatomegaly, not elsewhere classified] Onset: 95-63-7310GnbilxarOsepl lower respiratory disease (10 sources)Dyspnea; Translations: [Shortness of breath]Onset: 11-27-2024 EpisodicComment on above:Problem List clean-up per request of Phys. EHR Cmte Other lower respiratory disease (2 sources)Shortness of breath; Translations: [Shortness of breath]09-10-2022 EpisodicOther lower respiratory disease (1 source)Dyspnea, unspecified; Translations: [Dyspnea, unspecified]Onset: 46-27-4205LbiczgxiKyiit lower respiratory disease (12 sources)Dyspnea on ecmukmyi71-08-0624HivwzmyrMhkbe nervous system disorders (20 sources)Neurogenic mgcsxadqyohm37-72-1653SysprguxYyeto non-traumatic joint disorders (4 sources)Pain in right hip joint; Translations: [Pain in right hip]Onset: 33-73-6859NjbfazylDxuoc non-traumatic joint disorders (20 sources)Hip ohnu00-03-5036YupbdwjxNlmfz non-traumatic joint disorders (3 sources)Pain in right hip; Translations: [Pain in right hip]Onset: 08-10-2023 EpisodicOther nutritional; endocrine; and metabolic disorders (20 sources)Morbid obesity; Translations: [Morbid (severe) obesity due to excess calories]Onset: 98-02-8285VhirvhjOegck nutritional; endocrine; and metabolic disorders (20 sources)Body mass index 40+ - severely obese; Translations: [Body mass index (BMI) 50.0-59.9, adult]Onset: 65-86-1880AzpsskoLfywm nutritional; endocrine; and metabolic disorders (18 sources)Severe -05-6603DmpvfjqTdamn nutritional; endocrine; and metabolic disorders (1 source)Obesity; Translations: [Other obesity due to excess calories]Chronic Other nutritional; endocrine; and metabolic disorders (2 sources)Morbid (severe) obesity due to excess calories; Translations: [Morbid (severe) obesity due to excess calories]Onset: 36-53-5925PlfrxnqJjcyd nutritional; endocrine; and metabolic disorders (2 sources)Body mass index (BMI) 50.0-59.9, adult; Translations: [Body mass index (BMI) 50.0-59.9, adult]Onset: 07-06-2470IdbepcrGfoch screening for suspected conditions (not mental disorders or infectious disease) (12 sources)Screening for malignant neoplasm of colon done; Translations: [Encounter for screening for malignant neoplasm of colon]Onset: 11-26-2022 EpisodicOther skin disorders (20 sources)Multiple skin ggjn14-62-8015QplralxfMgddc skin disorders (20 sources)Senile ixmvjhxztsmcor47-07-9625MdatawljIzzvwkvr codes; unclassified (20 sources)Obstructive sleep apnea syndrome; Translations: [Obstructive sleep apnea (adult) (pediatric)]Onset: 09-28-1872LbwowohTofvexlz codes; unclassified (2 sources)Obstructive sleep apnea (adult) (pediatric); Translations: [Obstructive sleep apnea (adult) (pediatric)]Onset: 50-02-1007RkagsolDwpzoqxw codes; unclassified (3 sources)Preoperative state; Translations: [Pre-operative clearance]Episodic Residual codes; unclassified (2 sources)Tobacco user; Translations: [Tobacco use]EpisodicResidual codes; unclassified (20 sources)Edema of lower mkfvebhak92-87-8261OlkgcvvtVvxmprad codes; unclassified (1 source)Family history of malignant neoplasm of -58-6054Shscqutc Residual codes; unclassified (1 source)FH: Stomach kyzqhu09-64-9270YowcishuTzsektkx codes; unclassified (12 sources)Localized edema; Translations: [Localized edema]Onset: 08-20-2022 EpisodicResidual codes; unclassified (1 source)Bilateral lower limb edema; Translations: [Localized edema]Episodic Residual codes; unclassified (9 sources)Current drinker; Translations: [Alcohol use, unspecified, uncomplicated]Onset: 58-17-2953SqoohvlhIlqxzohr codes; unclassified (1 source)Localized edema; Translations: [Localized edema]Onset: 08-24-2023 EpisodicRespiratory failure; insufficiency; arrest (adult) (5 sources)Acute respiratory failure; Translations: [Acute respiratory failure with hypoxia]28-07-6108AbahudmdMknijmf on above:Problem List clean-up per request of Phys. EHR CmteRespiratory failure; insufficiency; arrest (adult) (1 source)Respiratory failure; insufficiency; arrest (adult); Translations: [Acute respiratory failure with hypoxia]Onset: 39-89-1545Fvva and subcutaneous tissue infections (2 sources)Cellulitis, unspecified; Translations: [Cellulitis]Onset: 12-27-2024 EpisodicSpondylosis; intervertebral disc disorders; other back problems (20 sources)Sciatica; Translations: [Sciatica, unspecified side]Onset: 16-40-2739WfzzqescQeuboxyrk-related disorders (20 sources)Nicotine dependence; Translations: [Nicotine dependence, cigarettes, uncomplicated]Onset: 48-11-9157CyifjrwVfkfcbrvk-related disorders (20 sources)Marijuana user; Translations: [Cannabis misuse]Onset: 08-29-2024 85-86-7667NaumajttDwnaywffbfzx (14 sources)Cancer cervix screening -60-7625Ifknsameyhyh (20 sources)Patient encounter -96-5176Bjflbdzvtsjr (20 sources)Finding relating to alcohol drinking vfotzoqg93-10-5820Wqreenxlfwcq (20 sources)Liver function test xucpvcgxa12-48-1151 Past or Other Problems Problem ClassificationProblemDateDocumented DateEpisodic/ChronicAbdominal pain (20 sources)Right lower quadrant pain; Translations: [Nonspecific abdominal pain]Onset: 105584-89-8732EfsqqgfpQmqynylm of mouth; excluding dental (20 sources)Leukedema of tongue; Translations: [Other disturbances of oral epithelium, including tongue]Onset: 272461-02-5872XlievoczGtemy upper respiratory disease (20 sources)Hoarse; Translations: [Dysphonia]Onset: 573997-79-0926Niijafsu Syncope (20 sources)Syncope and collapse; Translations: [Syncope and collapse]Onset: 001663-68-6477Absamzfg Results Test NameValueInterpretationReference RangeFacilityAmbulatory Visit Summaryon 99-44-2051Mbflzmkuyl Visit SummaryAmbulatory Visit Summary CARMEN BLEDSOE :1960 Visit Date:04/09/2025 Ambulatory Visit Instructions Your Diagnosis Moderate persistent asthma Morbid obesity with BMI of 50.0-59.9, adult, Morbid (severe) obesity due to excess calories BMI 50.0-59.9, adult, Body mass index [BMI] 50.0-59.9, adult Your Care Team Attending Physician - Nigel MSN, SHIPPING AND RECEIVING WEIGHER-Paris VILLATORO Primary Care Physician - Nigel MSN, SHIPPING AND RECEIVING WEIGHER-Paris VILLATORO This Is Your Medications List albuterol (Albuterol (Eqv-Ventolin HFA) 90 mcg/inh inhalation aerosol) albuterol (albuterol 0.083% Inh [place]helle 3 mL) amoxicillin-clavulanate (Augmentin 875 mg-125 mg Tab) fluticasone nasal (Flonase 0.05 mg/inh [place]) glipiZIDE (glipiZIDE 2.5 mg ER Tab) methylPREDNISolone [...] Following Appointments Follow Up with Nigel MSN, SHIPPING AND RECEIVING WEIGHER-SHOE COVERER, Paris Hamilton When: In 3 months Comments: chronic care Where: [address] [place] [phone] Medications What How Much When Why Instructions New amoxicillin-clavulanate (Augmentin 875 mg-125 mg Tab) 1 Tablets By Mouth Every 12 hours Duration: 7 Days Pickup at [facility] New fluticasone nasal (Flonase 0.05 mg/ inh [place]) 2 Sprays Nasal Inhalation Every day each nostrilPickup at [facility] New methylPREDNISolone (Medrol 4 mg Tab) 1 Packets By Mouth As Directed Duration: 6 Days as directed on package labeling Pickup at [facility]16 New montelukast (Singulair 10 mg Tab) 1 Tablets By Mouth Once a day (in the evening) Refills: 2 Pickup at [facility]16 Changed albuterol (Albuterol (Eqv-Ventolin HFA) 90 mcg/ inh inhalation aerosol) 2 Puffs Inhalation Every 6 hours as needed for Shortness of breath or wheezing COPD with acute exacerbation Pickup at [facility]16 Changed albuterol (albuterol 0.083% Inh [place] 3 mL) 3 Milliliter Nebulized inhalation (aerosol) Every6 hours as needed for Shortness of breath or wheezing Moderate persistent asthma Pickup at [facility] Unchanged glipiZIDE (glipiZIDE 2.5 mg ER Tab) 1 Tablets By Mouth Every day Pickup at [facility] Unchanged rosuvastatin (Crestor 40 mg Tab) 1 Tablets By Mouth Every day Mixed hyperlipidemia Pickupat [facility]16 Unchanged aripiprazole (Abilify 5 mg [...] preserved ejection fraction Co (more content not included)...[facility] Medicine Office/Clinic Noteon 97-79-4583Wkoeaf Medicine Office/Clinic NoteFaspaulding rehabilitation hospital Medicine Office/Clinic Note Chief Complaint Patient presents [...] Then she develops this respiratory infection. Taking ovth-lab-mxcylwt medication to help with the symptoms with [...] breath or wheezing, 100 EA, Refill(s) 1, [facility], 168, cm, 04/09/25 11:43:00 EDT, Height/Length [...] breath or wheezing, 6.7 gm, Refill(s) 1, [facility], 168, cm, 04/09/25 11:43:00 EDT, Height/Length Dosing, 160.8, kg, 04/09/25 11:43:00 EDT, Weight Dosing amoxicillin-clavulanate, 1 tab(s), Oral, q12hr for 7 day(s), 14 tab(s), Refill(s) 0, [facility], 168, cm, 04/09/25 11:43:00 EDT, Height/Length Dosing, 160.8, kg, 04/09/25 11:43:00 EDT, Weight Dosing fluticasone nasal, 2 spray(s), Nasal, Daily, 16 gram, Refill(s) 0, [facility] nostril[facility] (more content not included)...[facility] HospitalComment on above:Result Comment: Electronically Signed By: Nigel SMITH, SHIPPING AND RECEIVING WEIGHER-SHOE COVERER, Paris Hamilton\.br\Date and Time Signed: 04/09/25 12:15 EDTHeart and Vascular Office/Clinic Noteon 86-74-1452Wqalt and Vascular Office/Clinic Note Heart and Vascular [...] Overall, no jayme (more content not included)...[facility] CenterComment on above:Result Comment: Electronically Signed By: Rick Hernandez PA-C\elsie\Date and Time Signed: 03/12/25 13:37 EDT Ambulatory Visit Summaryon [id number] Visit SummaryAmbulatory Visit Summary CARMEN BLEDSOE :1960 Visit Date:02/04/2025 Ambulatory Visit Instructions Your Diagnosis Moderate persistent asthma Type 2 diabetes mellitus with morbid obesity Morbid obesity with BMI of 50.0-59.9, adult, Morbid (severe) obesity due to excess calories BMI 50.0-59.9, adult, Body mass index [BMI] 50.0-59.9, adult Cigarette smoker Your Care Team Attending Physician - Nigel SMITH, SHIPPING AND RECEIVING WEIGHER-Paris VILLATORO Primary Care Physician - Nigel SMITH, SHIPPING AND RECEIVING WEIGHER-Paris VILLATORO This Is Your Medications List buPROPion [...] Tuesday 1:00 PM EDT With: Nigel SMITH, SHIPPING AND RECEIVING WEIGHER-Paris VILLATORO Where: [facility] [place] [address] [place] [address]- Tuesday 1:15 PM EDT With: Rick Hernandez PA-C Where: [facility] You Need to Schedule the Following Appointments Follow Up with Nigel SMITH, DARLEEN-Paris VILLATORO When: In 1 month Comments: weight loss, initial 40 min Where: [address] [place] [phone] Medications What How Much When Why Instructions New buPROPion (buPROPion 150 mg/ 24 hours XL Tab) 1 Tablets By Mouth Every 24 hours Pickup at [facility]16 Unchanged albuterol (Albuterol (Eqv-Ventolin HFA) 90 [...] See instructions Moderate pe (more content not included)...[facility] Medicine Office/Clinic Noteon 03-92-5462Kneqzp Medicine Office/Clinic NoteFaspaulding rehabilitation hospital Medicine Office/Clinic Note Chief Complaint The patient [...] Nicotine dependence, cigarettes, uncomplicated) (more content not included)...[facility] HospitalComment on above: Result Comment: Electronically Signed By: Nigel SMITH, SRINIVAS, Paris Hamilton\.br\Date and Time Signed: 02/04/25 15:13 EDTAmbulatory Visit Summaryon 02-09-1514Tbocigbtmv Visit SummaryAmbulatory Visit Summary CARMEN BLEDSOE :1960 [...] Tuesday 1:40 PM EDT With: Nigel MSN, SHIPPING AND RECEIVING WEIGHER-SHOE COVERER, Paris Hamilton Where: [facility] [place] [address] [place] [address]- Tuesday 1:15 PM EDT With: David LEONARD, Rick Gipson Where: [facility] Medications What How Much When Why Instructions [...] mg Tab) 1 (more content not included)... [facility] HospitalHeart [facility]ascular Office/Clinic Noteon 47-45-5422Waplb and Vascular Office/Clinic NoteHeart and Vascular Office/Clinic [...] has history of per (more content not included)...[facility] HospitalComment on above:Result Comment: Electronically Signed By: David LEONARD, Rick Gipson\elsie\Date and Time Signed: 01/29/25 10:10 EDTPDetw[facility] [id number] Hospital Case Information Case Priority: None Programs: -- 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 Date Enrolled: December 31, 2024 Assigned Primary Personnel: Gracy Maxwell R.N. Assigned Secondary Personnel: -- Case Physician: Nigel MSN, SHIPPING AND RECEIVING WEIGHER-SHOE COVERER, Paris Hamilton Problems Ongoing Alcohol abuse, in [...] See Instructions nystatin 100,000 units/mL Oral Susp, 159644 unit(s)= 5 mL, Oral-Swish&Swallow, QID nystatin Top [...] and Assessments 12/31/24 09:55: (more content not included)...[facility] BNPon 19-33-8540Exl Ctr BNPPassNormalMain Campus Medical CenterComment on above:Performed By: #### [id number] #### [facility] [address], [place] [address]Kqnclobbagz peptide B (Bld) [Mass/Vol]20 pg/mLNormal5-80[facility] CenterComment on above:Performed By: #### [id number] #### [facility] [address], [place] [address]GLE w/ Auto Diffon 40-46-9460Drztwcvl Absolute0.2 E9/LNormal 0.0-0.2[facility] CenterComment on above:Performed By: #### [id number] #### [facility] [address], [place] [address]Znsizwswl/100 WBC (Bld)3.1 %High0.0-2.0[facility] CenterComment on above:Performed By: #### [id number] #### [facility] [address], [place] [address]Csw Absolute0.1 E9/LNormal0.0-0.5FWilson Memorial Hospital Comment on above:Performed By: #### [id number] #### [facility] [address], [place] [address]Xsvvrugrfqe/100 WBC (Bld)2.7 %Normal0.0-8.0[facility] CenterComment on above:Performed By: #### [id number] #### [facility] [address], [place] [address]Udbevufygye distribution width (RBC) [Ratio]15.8 %High10.9-14.2 [facility] CenterComment on above:Performed By: #### [id number] #### [facility] [address], [place] [address]Bkwdccbaph (Bld) [Volume fraction]38.3 %Qmasze77.0-46.0[facility] CenterComment on above:Performed By: #### [id number] #### [facility] [address], [place] [address]Mweeuatnrs (Bld) [Mass/Vol]13.0 g/iWBttmzs56.0-16.0[facility] CenterComment on above:Performed By: #### [id number] #### [facility] [address], [place] [address]Tqxos Absolute0.8 E9/LLow1.0-4.0[facility] Comment on above:Performed By: #### [id number] #### [facility] [address], [place] [address]Aepffcjyhln/100 WBC (Bld)15.4 %Hejzfv23.0-50.0[facility] CenterComment on above:Performed By: #### [id number] #### [facility] [address], [place] [address]CPS (RBC) [Entitic mass]31.3 wrAzigvm46.0-34.0[facility] CenterComment on above:Performed By: #### [id number] #### [facility] [address] [place] [address]BIYJ (RBC) [Mass/Vol]33.9 g/aJUzzrrz47.4-36.0[facility] CenterComment on above:Performed By: #### [id number] #### [facility] [address] [place] [address]ZTX (RBC) [Entitic vol]92.2 qQMufghk79.0-100.0[facility] CenterComment on above:Performed By: #### [id number] #### [facility] [address] [place] [address]Psbb Absolute0.4 E9/LNormal0.2-1.0[facility] Comment on above:Performed By: #### [id number] #### [facility] [address] [place] [address]Rwsgeondn/100 WBC (Bld)7.3 %Normal4.0-14.0[facility] CenterComment on above:Performed By: #### [id number] #### [facility] [address] [place] [address]Icstjy Absolute3.6 E9/LNormal2.0-7.5FWilson Memorial Hospital Comment on above:Performed By: #### [id number] #### [facility] [address] [place] [address]Gbuogn Auto71.5 %Pbnqxw22.0-75.0[facility] Comment on above:Performed By: #### [id number] #### [facility] [address] [place] [address]Bvozfmyk775.0 E9/MFlnyhy096.0-500.0[facility] Comment on above:Performed By: #### [id number] #### [facility] [address] [place] [address]Lqolacsr mean volume (Bld) [Entitic vol]7.2 fLNormal6.4-10.8 [facility] CenterComment on above:Performed By: #### [id number] #### [facility] [address] [place] [address]RYI5.2 E12/LLow4.3-5.9[facility] CenterComment on above:Performed By: #### [id number] #### [facility] [address] [place] [address]MSD2.0 E9/LNormal4.0-11.0[facility] CenterComment on above:Performed By: #### [id number] #### [facility] [address] [place] [address]NUDrn 32-22-1762Xqmcpwu [Mass/Vol]4.3 g/dLNormal3.3-5.0[facility] CenterComment on above:Performed By: #### [id number] #### [facility] [address] [place] [address]Qplwkjy/Globulin [Mass ratio]1.5 {ratio}Normal1.1-2.2FWilson Memorial HospitalComment on above:Performed By: #### [id number] #### [facility] [address] [place] [address]Cxs Phos61 Int._Unit/RFopmam83-65KkwfgoMain Campus Medical Center Comment on above:Performed By: #### [id number] #### [facility] [address] [place] [address]YKG29 Int._Unit/LNormal6-46[facility] CenterComment on above:Performed By: #### [id number] #### [facility] [address], [place] [address]Naowg gap [Moles/Vol]10 mmol/LNormal6-16[facility] CenterComment on above:Performed By: #### [id number] #### [facility] [address] [place] [address]DPO85 Int._Unit/LNormal5-43[facility] CenterComment on above:Performed By: #### [id number] #### [facility] [address], [place] [address]Sagg Total0.4 mg/dLNormal0.0-1.1FWilson Memorial Hospital Comment on above:Performed By: #### [id number] #### [facility] [address], [place] [address]ZKD/Creat Ratio20 No ZbowiChdoev22-69YzximnMain Campus Medical CenterComment on above:Performed By: #### [id number] #### [facility] [address], [place] [address]Bbasdfh [Mass/Vol]9.3 mg/dLNormal8.9-11.1FWilson Memorial HospitalComment on above:Performed By: #### [id number] #### [facility] [address], [place] [address]Gplyxtam [Moles/Vol]100 mmol/PRvk059-728XadhuyMain Campus Medical CenterComment on above:Performed By: #### [id number] #### [facility] [address], [place] [address]ZA6 [Moles/Vol]33 mmol/ORxuv42-36SofbqnMain Campus Medical Center Comment on above:Performed By: #### [id number] #### [facility] [address], [place] [address]Covbjznous [Mass/Vol]0.8 mg/dLNormal0.5-1.3FWilson Memorial HospitalComment on above:Performed By: #### [id number] #### [facility] [address], [place] [address]Uucbnjwa (S) [Mass/Vol]2.9 g/dLNormal1.4-4.0[facility] CenterComment on above:Performed By: #### [id number] #### [facility] [address], [place] [address]Ildrdft [Mass/Vol]114 mg/jNZywnue57-340TmjrliMain Campus Medical CenterComment on above:Performed By: #### [id number] #### [facility] [address], [place] [address]Loomkcxsv [Moles/Vol]3.7 mmol/LNormal3.5-5.3FWilson Memorial HospitalComment on above:Performed By: #### [id number] #### [facility] [address], [place] [address]Fmtjukh [Mass/Vol]7.2 g/dLNormal6.0-7.8[facility] CenterComment on above:Performed By: #### [id number] #### [facility] [address], [place] [address]Ycnfmm [Moles/Vol]139 mmol/JKqmjxh461-058LlmyhxMain Campus Medical CenterComment on above:Performed By: #### [id number] #### [facility] [address], [place] [address]Gjyw nitrogen [Mass/Vol]16 mg/dLNormal5-21[facility] CenterComment on above:Performed By: #### [id number] #### [facility] [address] [place] [address]NT Abdomen/Pelvis w/ Contraston 64-16-5670ED Abdomen/Pelvis w/ ContrastExam Date/Time: 01/24/2025 11:09 EDT [...] Grider MD Transcribed by: KARSTEN Technologist: Chava [facility] CenterED Clinical Summaryon [id number] Clinical SummaryED Clinical Summary [place] [address] ED Clinical Summary Person Information Name: CARMEN BLEDSOE/BannerBrennan Age: 64 Years : 1960 Sex: Female Language: Cook Islander PCP: Nigel MSN, SHIPPING AND RECEIVING WEIGHER-SHOE COVERER, [place] Hamilton Marital Status: Single Visit Id: [...] 01/24/2025 13:34:37 01/24/2025 13:34:37 01/24/2025 13:34:37 ADDRESS: [address] [place] [address] DOC [place] [id number] [facility] DOC NOTES: MEDICAL INFORMATION: Prescriptions Given: New Medications [facility], [address], [place] [id number], [phone] acetaminophen-hydrocodone ([place] 325 mg-5 mg oral tablet) 1 Tablets [...] not included)...NormalFisher [facility]ilango Medical CenterED Note-Physician on 52-20-2510ZU Note-PhysicianED Note-Physician Basic Information Time Seen: Lui [...] or rigidity noted. Neurological: A&O, normal equal fryer operator strength, normal speech, normal coordination, normal motor, [...] abdomen and p (more content not included)...Normal [facility] CenterComment on above:Result Comment: Electronically Signed By: Lui Christiansen PA-C\.br\Date and Time Signed: 01/25/2516:12 EDT\.br\Electronically Co-Signed By: Oneal Newman DO\.br\Date and Time Co-Signed: 01/24/25 19:04 EDTED Patient Summaryon 79-91-8468GR Patient SummaryED Patient Summary [place] [address] Patient Discharge Instructions Person Information Name: CARMEN BLEDSOE Age: 64 Years Arrival Date: 01/24/2025 08:46:49 Discharge Diagnosis: COPD exacerbation; Laceration of left ear; Left hip pain; Low back pain; Multiple falls; Oral thrush; Osteoarthritis of hip; Shortness of breath Primary Care Physician: Nigel MSN, SHIPPING AND RECEIVING WEIGHER-SHOE COVERER, Paris Hamilton Provider Information Primary Provider: Advanced Supervisor Fertilizer Processing:Lui Christiansen PA-C The exam and treatment you received in the Emergency Department were for an urgent problem and are not intended as complete care. It is important that you follow up with a doctor, nurse practitioner,or physician???s manufacturing assistant for ongoing care. If your symptoms [...] When: Paris Rust [address] [place], [place] [id number] [phone] [employer] (1) In 3 days 01/27/2025 Comments: Please call primary care office for close outpatient follow-up regarding thrush, back and hip pain,COPD exacerbation. Take medication as prescribed. Return to ED if symptoms worsen or new symptoms arise. Please ambulate with assistance at home to prevent further falls. Return to ED if you have another fall. With: Address: When: [facility] [address] [place] [phone] [employer] (1) In 3 days 01/27/2025 Comments: Please [...] opioids can be used to help relieve yydztgkb-lu-cqwvuz pain and are often prescribed following a [...] up with your prima (more content not included)...NormalMain Campus Medical CenterPT & PTTon 53-36-9956OJY Coag (PPP) [Relative time]1.00 {INR} Invalid Interpretation [facility] HospitalComment on above:Result Comment: INR results are specifically intended to assess patients stabilized on long-term Anticoagulation therapy suggested INR???s ???Less Intensive Anticoagulation??? 2.0 ??? 3.0 Conventional Range 3.0 ??? 4.5Performed By: #### [id number] #### [facility] [address] [place], [place] [address]LQ45.2 second(s)Normal9.4-12.5[facility] Comment on above:Result Comment: 15 days - [...] the same coagulation reagent and instrumentation as [facility]. Currently there are no coagulation studies available worldwide for children to 14 days, andno normal ranges.Performed By: #### [id number] #### [facility] [address] [place], [place] [address]IVW39.6 second(s)Boapzb37.1-36.5FWilson Memorial Hospital Comment on above:Result Comment: Parameter [...] the same coagulation reagent and instrumentation as [facility]. Currently there are no coagulation studies available worldwide for children to 14 days, andno normal ranges. Heparin therapeutic range (represented by Anti-Factor Xa activity of 0.2 - 0.4 U/mL) corresponds to PTT of 56.6 - 109.0 sec.Performed By: #### [id number] #### [facility] [address], [place] [address]Fmpbnudm 0 Hr.on 32-04-0409Pvzutbej HS4.50 pg/mLLow10.10-27.10 [facility] CenterComment on above:Result Comment: The 95% CI (Confidence Interval) PPV (Positive Predictive Value) for myocardial infarction in females is 38 pg/mL, in males 51 pg/mL. The results should be used in conjunction with clinical conditions of myocardial infarction. (Access High Sensitivity Troponin I Instructions For Use, [employer] aka [employer], February 2018)Performed By: #### [id number] #### [facility] [address] [place], [place] [address]Troponin 1 Hr.on 63-90-4408Opjojeuz HS3.90 pg/mLLow10.10-27.10 [facility] CenterComment on above:Result Comment: The 95% CI (Confidence Interval) PPV (Positive Predictive Value) for myocardial infarction in females is 38 pg/mL, in males 51 pg/mL. The results should be used in conjunction with clinical conditions of myocardial infarction. (Access High Sensitivity Troponin I Instructions For Use, [employer] aka [employer], February 2018)Performed By: #### [id number] #### [facility] [address] [place], [place] [address]UA with Cult Rflxon 31-04-2839Ygvle (U)ColorlessAbnormalYellow [facility] Medical CenterComment on above:Result Comment: Microscopic readings are only performed on those samples that meet specific criteria set forth by [facility].Performed By: #### [id number] #### [facility] [address], [place] [address]Bxmbxzw Ql (U)NegativeNormalNegativeMain Campus Medical Center Comment on above:Performed By: #### [id number] #### [facility] [address], [place] [address]FV BloodNegativeNormalNegativeMain Campus Medical Center Comment on above:Performed By: #### [id number] #### [facility] [address], [place] [address]ZV ClarityClearNormalClearMain Campus Medical CenterComment on above:Performed By: #### [id number] #### [facility] [address], [place] [address]CK Glucose3+ mg/dLAbTriHealth Comment on above:Performed By: #### [id number] #### [facility] [address], [place] [address]NK Leuk EstNegativeNormiaNegSelect Medical [facility] Comment on above:Performed By: #### [id number] #### [facility] [address] [place] [address]SX NitriteNegativeNormalSt. Rita's Hospital Comment on above:Performed By: #### [id number] #### [facility] [address], [place] [address]MM pH5.0Invalid Interpretation Code5.0-9.0[facility] Medical CenterComment on above:Performed By: #### [id number] #### [facility] [address] [place] [address]LN ProteinNegativeNoMetroHealth [facility] Medical Center Comment on above:Performed By: #### [id number] #### [facility] [address] [place] [address]BF Spec Grav1.016Invalid Interpretation Code1.005-1.030[facility] Medical CenterComment on above:Performed By: #### [id number] #### [facility] [address], [place] [address]EV UrobilinogenNegativeNormalSt. Rita's HospitalComment on above:Performed By: #### [id number] #### [facility] [address], [place] [address]Lfpytfyxuecf (U) [Mass/Vol]NegativeNormalNegSelect Medical Ohio[facility] Rehabilitation Hospital - DublinComment on above:Performed By: #### [id number] #### [facility] [address], [place] [address]IV Spec DescClean CatchTriHealth Bethesda Butler HospitalComment on above:Performed By: #### [id number] #### [facility] [address] [place], [place] [address]WA Lower Extremity Venous Duplex Lefton 42-50-1775DB Lower Extremity Venous Duplex LeftExam Date/Time: 01/24/2025 [...] Byron Grider MD Transcribed by: KARSTEN Technologist: CARYNTriHealth Bethesda Butler HospitalXR Chest Single Viewon 63-86-9462OA Chest Single ViewExam Date/Time: 01/24/2025 09:47 EDT [...] Braxton Norris DO Transcribed by: KARSTEN Technologist: BaltaMain Campus Medical CenterXR Hip 2-3 Views Left + Pelvison 43-35-1305GJ Hip 2-3 Views Left + PelvisExam Date/Time: [...] Braxton Norris DO Transcribed by: KARSTEN Technologist: DPRTriHealth Bethesda Butler HospitaleGFRon 54-23-0114yBFX90 mL/min/1.73 h1Qfcozd>=59[facility] Medical CenterComment on above:Performed By: #### [id number] #### [facility] [address], [place] [address]Paapjninzky 85-80-2883NzsvytjekFrsjwucfb From: Gracy Maxwell R.N. To: [facility] Sports Reporter; Gracy Maxwell R.N.; Sent: 01/21/2025 12:29:37 EDT Show up: 01/21/2025 12:29:00 EDT Subject: tcm #2 final Due Date/Time: 01/28/2025 12:29:00 EDT Reminder/RecallTriHealth Bethesda Butler HospitalPulmonary Function Studieson 33-36-5306Mcfzaralv Function StudiesPulmonary Function Studies PULMONARY FUNCTION TEST: [...] BY: Javier Hall M.D. ca Dictated: 01/12/2025 [id number] Transcribed: 01/15/2025 cc:SAMUEL AtkinsonTriHealth McCullough-Hyde Memorial HospitalComment on above: Result Comment: Electronically Signed By: Isabel SAMPSON, Javier Fernandes\.br\Date and Time Signed: 01/16/25 10:16 EDTAmbulatory Visit Summaryon 97-27-2558Vhoypcoacy Visit SummaryAmbulatory Visit Summary CARMEN BLEDSOE :1960 [...] EDT With: Nigel SMITH, Paris ESPINO Where: [place] [address] [place] [address]- You Need to Schedule the Following Appointments Follow Up with Nigel SMITH, SRINIVAS, Paris Hamilton When: In 1 month Where: [address] [place] [phone] Medications What How Much When Why Instructions New nicotine (nicotine 21 mg/ 24 hr Transderm ER Film) 1 Patches Topical Every 24 hours Duration: 21 Days wear only one patch at a time, for 24 hours only Pickup at [facility] Unchanged albuterol (Albuterol (Eqv-Ventolin HFA) 90 [...] mellitus with morbid obes (more content not included)...TriHealth Bethesda Butler HospitalCHEMISTRYOrdered By: Felicity Marin on 02-43-6090Ymiihnw DL <= 20 mg/L (U) [Mass/Vol]mg/dLNormal0.0 - 1.9 mg/dLRemisol ChemAlbumin/Creatinine DL <= 20 mg/L (U) [Mass ratio]NOT CALCULATEDInvalid Interpretation Code0.0 - 30.0 Remisol ChemComment on above:Interpretive Data: 30-300 mg/g Cr indicates an increased risk for diabetic nephropathy. >300 mg/g Cr is consistent with clinical nephropathy.U Bftfyozmec50.8 mg/dL Invalid Interpretation CodeRemisol ChemFamily Medicine Office/Clinic Noteon 69-55-6509Fxdjlp Medicine Office/Clinic NoteFamily Medicine Office/Clinic Note Chief [...] (abnormal relaxation pattern). [1] List of Providers Supervisor [employer]le: Rick Hernandez PA-C Visual Effects Editor: Dr Phillip Orthopaedics: Dr Martinez LABS Cr/eGFR: [...] Appt. Date: 01/07/2025 12:30 PM Scheduled Provider: [facility] Pulmonary Function Lab Phone: -- Fax: -- [...] further complications. She did follow-up with her forestry technician yesterday and she is to follow-up with [...] history of cellulitis, (more content not included)... NormalMain Campus Medical CenterComment on above:Result Comment: Electronically Signed By: Nigel SMITH, SHIPPING AND RECEIVING WEIGHER-IRVING, Paris Hamilton\.br\Date and Time Signed: 01/02/25 15:41 EDTU MA/Cr Ratioon 15-30-9686Nvfjptzs/Cr RatioNOT CALCULATEDInvalid Interpretation Code.0-30.0[facility] Medical CenterComment on above:Result Comment: 30-300 mg/g Cr indicates an increased risk for diabetic nephropathy. >300 mg/g Cr is consistent with clinical nephropathy.Performed By: #### [id number] #### [facility] [address], [place] [address] Gjqpgalckn90.8 mg/dLInvalid Interpretation CodeMain Campus Medical CenterComment on above:Performed By: #### [id number] #### [facility] [address], [place] [address]Y Microalb<0.2Nrzznu3.0-1.9[facility] Medical CenterComment on above:Performed By: #### [id number] #### [facility] [address], [place] [address]Apklf and Vascular Office/Clinic Noteon 33-89-0804Hncro and Vascular Office/Clinic NoteHeart and Vascular Office/Clinic [...] to swelling, but (more content not included)...Normal [facility] Medical CenterComment on above:Result Comment: Electronically Signed By: Rick Hernandez PA-C\.sonia\Date and Time Signed: 01/01/25 14:28 EDT Population [facility] 94-81-3106Qmbtophzon [facility] Case Information Case Priority: None Programs: -- 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 Date Enrolled: December 31, 2024 Assigned Primary Personnel: Gracy Maxwell R.N. Assigned Secondary Personnel: -- Case Physician: Nigel SMITH, SHIPPING AND RECEIVING WEIGHER-SHOE COVERER, Paris Hamilton Problems Ongoing Alcohol abuse, in [...] enrollment Goals and Intervention (more content not included)...[facility]hes[facility] Butler HospitalCoding Queryon 45-74-7125Tswoai QueryCoding Query From: Anais Wood RN To: [...] CARMEN BLEDSOE; Caller Number: Cuca , M [facility]hes[facility] Butler HospitalBMPon 48-61-5359Xiely gap [Moles/Vol]10 mmol/L Normal6-16[facility] Campus Medical CenterComment on above:Performed By: #### [id number] #### [facility] [address], [place] [address]WVR/Creat Ratio30 No NlxrvUnwo34-05NmlaxoMain Campus Medical Center Comment on above:Performed By: #### [id number] #### [facility] [address], [place] [address]Pqctalk [Mass/Vol]9.1 mg/dLNormal8.9-11.1[facility] CenterComment on above:Performed By: #### [id number] #### [facility] [address], [place] [address]Yimwwbtp [Moles/Vol]98 mmol/VFwo651-096EgbwucMain Campus Medical CenterComment on above:Performed By: #### [id number] #### [facility] [address], [place] [address]BY6 [Moles/Vol]31 mmol/GCzhlyn60-43KocmbmMain Campus Medical Center Comment on above:Performed By: #### [id number] #### [facility] [address], [place] [address]Dmfcxnrbaj [Mass/Vol]0.7 mg/dLNormal0.5-1.3FWilson Memorial HospitalComment on above:Performed By: #### [id number] #### [facility] [address], [place] [address]Kouwbwj [Mass/Vol]185 mg/eGUnfrzs04-483IippilMain Campus Medical CenterComment on above:Performed By: #### [id number] #### [facility] [address], [place] [address]Qyvfkjrda [Moles/Vol]4.2 mmol/LNormal3.5-5.3FWilson Memorial HospitalComment on above:Performed By: #### [id number] #### [facility] [address] [place] [address]Acxrcp [Moles/Vol]135 mmol/NProhmx017-291FmdhyzMain Campus Medical CenterComment on above:Performed By: #### [id number] #### [facility] [address] [place] [address]Qnci nitrogen [Mass/Vol]21 mg/dLNormal5-21[facility] Medical CenterComment on above:Performed By: #### [id number] #### [facility] [address] [place] [address]PUB w/ Auto Diffon 64-15-3947Khrhaexc Absolute0.1 E9/LNormal 0.0-0.2FWilson Memorial HospitalComment on above:Performed By: #### [id number] #### [facility] [address] [place] [address]Ojrzzldmx/100 WBC (Bld)0.6 %Normal0.0-2.0[facility] Campus Medical CenterComment on above:Performed By: #### [id number] #### [facility] [address] [place] [address]Wdu Absolute0.0 E9/LNormal0.0-0.5FWilson Memorial Hospital Comment on above:Performed By: #### [id number] #### [facility] [address], [place] [address]Xtilriogrfu/100 WBC (Bld)0.0 %Normal0.0-8.0[facility] Campus Medical CenterComment on above:Performed By: #### [id number] #### [facility] [address], [place] [address]Tvspzaccjka distribution width (RBC) [Ratio]15.6 %High10.9-14.2 [facility] Campus Medical CenterComment on above:Performed By: #### [id number] #### [facility] [address], [place] [address]Qcpvfbogci (Bld) [Volume fraction]39.3 %Sqlwgv42.0-46.0[facility] Medical CenterComment on above:Performed By: #### [id number] #### [facility] [address] [place] [address]Vtrrraosmk (Bld) [Mass/Vol]13.0 g/pMCionga14.0-16.0[facility] Medical CenterComment on above:Performed By: #### [id number] #### [facility] [address] [place] [address]Phrdq Absolute0.6 E9/LLow1.0-4.0[facility] Comment on above:Performed By: #### [id number] #### [facility] [address], [place] [address]Dpbldawpubb/100 WBC (Bld)6.3 %Low14.0-50.0[facility] Campus Medical CenterComment on above:Performed By: #### [id number] #### [facility] [address], [place] [address]AWL (RBC) [Entitic mass]30.4 ivRodwad87.0-34.0[facility] Campus Medical CenterComment on above:Performed By: #### [id number] #### [facility] [address], [place] [address]HEGT (RBC) [Mass/Vol]33.2 g/kNNezhlh04.4-36.0[facility] Medical CenterComment on above:Performed By: #### [id number] #### [facility] [address], [place] [address]NJW (RBC) [Entitic vol]91.6 wDBhbqsr74.0-100.0[facility] Medical CenterComment on above:Performed By: #### [id number] #### [facility] [address], [place] [address]Pygl Absolute0.5 E9/LNormal0.2-1.0[facility] Comment on above:Performed By: #### [id number] #### [facility] [address], [place] [address]Ewozzetzg/100 WBC (Bld)5.0 %Normal4.0-14.0[facility] Medical CenterComment on above:Performed By: #### [id number] #### [facility] [address], [place] [address]Ybemhb Absolute8.3 E9/LHigh2.0-7.5FWilson Memorial Hospital Comment on above:Performed By: #### [id number] #### [facility] [address], [place] [address]Casssw Auto88.1 %High36.0-75.0[facility] Comment on above:Performed By: #### [id number] #### [facility] [address], [place] [address]Ohkissht610.0 E9/MPhhgce473.0-500.0[facility] Comment on above:Performed By: #### [id number] #### [facility] [address], [place] [address]Nmaliccz mean volume (Bld) [Entitic vol]7.3 fLNormal6.4-10.8 [facility] Medical CenterComment on above:Performed By: #### [id number] #### [facility] [address], [place] [address]XAT2.3 E12/LNormal4.3-5.9[facility] Medical CenterComment on above:Performed By: #### [id number] #### [facility] [address], [place] [address]BVE0.4 E9/LNormal4.0-11.0[facility] Medical CenterComment on above:Performed By: #### [id number] #### [facility] [address], [place] [address]EJASQTWUBNdghxnh By: Vandana Marinelli on 50-59-3317Pbwinfx [Mass/Vol]200 mg/mFVjmo07 - 99 mg/dLSOUTH[facility] POC SubsectionComment on above:Result Comment: Notified RN/MDPOC UsernamLELE RosadoInvalid Interpretation Code [facility] POC SubsectionSodium [Moles/Vol]504692825 mmol/LInvalid Interpretation Code [facility] POC SubsectionSodium [Moles/Vol]849721540903 mmol/LInvalid Interpretation CodeSOUTHWESTERN [facility] POC SubsectionGlucose [Mass/Vol]166 mg/nDRyqy26 - 99 mg/dLSOUTHWESTERN MEDICAL [facility] POC SubsectionComment on above:Result Comment: Notified RN/MDPOC UsernamEvans Chairez Interpretation CodeSOUTHWESTERN [facility] POC SubsectionSodium [Moles/Vol]335953360 mmol/LInvalid Interpretation CodeSOUTHWESTERN [facility] POC SubsectionSodium [Moles/Vol] 842244663647 mmol/LInvalid Interpretation CodeSOUTHWESTERN [facility] POC SubsectionCHEMISTRY Ordered By: SYSTEM SYSTEM on 79-86-3827Cciub gap [Moles/Vol]10 mmol/LNormal6 - 16 mEq/LRemisol ChemCalcium [Mass/Vol]9.1 mg/dLNormal8.9 - 11.1 mg/dLRemisol ChemChloride [Moles/Vol]98 mmol/NZqf575 - 111 mmol/LRemisol ChemCO2 [Moles/Vol] 31 mmol/JMjmzke02 - 31 mmol/LRemisol ChemCreatinine [Mass/Vol]0.7 mg/dLNormal0.5 - 1.3 mg/dLRemisol ChemGFR/1.73 sq M.predicted MDRD (S/P/Bld) [Vol rate/Area]98 mL/min/1.73 s7Ooqjnt>=59mL/min/1.73 l6Jllajma ChemGlucose [Mass/Vol]185 mg/dL Nbtdqo53 - 199 mg/dLRemisol ChemPotassium [Moles/Vol]4.2 mmol/LNormal3.5 - 5.3 mmol/LRemisol ChemSodium [Moles/Vol]135 mmol/ILwdruz864 - 145 mmol/LRemisol Chem Urea nitrogen [Mass/Vol]21 mg/dLNormal5 - 21 mg/dLRemisol ChemUrea nitrogen/Creatinine [Mass ratio]30 mg/fjMcrx93 - 20Remisol ChemCapillary Glucose POCon 83-05-7861Pknoipq [Mass/Vol]200 mg/rRPtet30-24VbvzjeMain Campus Medical Center Comment on above:Result Comment: Notified RN/MDPerformed By: #### [id number] #### [facility] [address], [place] [address]Sngxxhf [Mass/Vol]166 mg/hLBcmu27-44ZtjefiMain Campus Medical Center Comment on above:Result Comment: Notified RN/MDPerformed By: #### [id number] #### [facility] [address], [place] [address]GYCPJFCWRXHxiuxqk By: SYSTEM SYSTEM on 64-37-4811Iukuglqfe/100 WBC (Bld)0.6 %Normal0.0 - 2.0 %Remisol HemeBasophils/Leukocytes Auto (Bld) [Pure # fraction]0.1 E9/LNormal0.0 - 0.2 E9/LRemisol HemeEosinophils (Bld) [#/Vol]0.0 E9/LNormal0.0 - 0.5 E9/LRemisol HemeEosinophils/100 WBC (Bld)0.0 %Normal0.0 - 8.0 %Remisol HemeErythrocyte distribution width (RBC) [Ratio]15.6 %High10.9 - 14.2 %Remisol HemeHematocrit (Bld) [Volume fraction]39.3 %Yynaow14.0 - 46.0 % Remisol HemeHemoglobin (Bld) [Mass/Vol]13.0 g/qKRxcnuw32.0 - 16.0 gm/dLRemisol HemeLymphocytes (Bld) [#/Vol]0.6 E9/LLow1.0 - 4.0 E9/LRemisol Heme Lymphocytes/100 WBC (Bld)6.3 %Low14.0 - 50.0 %Remisol HemeMCH (RBC) [Entitic mass]30.4 hyZqsifz06.0 - 34.0 pgRemisol HemeMCHC (RBC) [Mass/Vol]33.2 g/dLNormal 31.4 - 36.0 gm/dLRemisol HemeMCV (RBC) [Entitic vol]91.6 hXTaekne56.0 - 100.0 fL Remisol HemeMonocytes (Bld) [#/Vol]0.5 E9/LNormal0.2 - 1.0 E9/LRemisol Heme Monocytes/100 WBC (Bld)5.0 %Normal4.0 - 14.0 %Remisol HemeNeutrophils (Bld) [#/Vol]8.3 E9/LHigh2.0 - 7.5 E9/LRemisol HemeNeutrophils/100 WBC (Bld)88.1 %High 36.0 - 75.0 %Remisol HemePlatelet mean volume (Bld) [Entitic vol]7.3 fLNormal6.4 - 10.8 fLRemisol HemePlatelets (Bld) [#/Vol]286.0 E9/LWqzdcb898.0 - 500.0 E9/L Remisol HemeRBC (Bld) [#/Vol]4.3 E12/LNormal4.3 - 5.9 E12/LRemisol HemeWBC corrected for nucl RBC Auto (Bld) [#/Vol]9.4 E9/LNormal4.0 - 11.0 E9/LRemisol HemeInpatient Patient Summaryon 79-70-3100Jsitdyuly Patient SummaryInpatient Patient Summary LADICARMEN :1960 Visit [...] night. Discuss inceased lasix dose with your forestry technician. May discuss adding Entresto or Losartan as outpatient too to help with your heart failure.Return to ER if symptoms return or wrosen Previously Scheduled Follow-Up Appointments Tuesday 2:00 PM EDT With: David LEONARD, Rick Gipson Where: Cardiology Clinic Tuesday 1:40 PM EDT With: Nigel MSN, SHIPPING AND RECEIVING WEIGHER-SHOE COVERER, Paris Hamilton Where: [facility] [place] [address] [facility] [place] [address] Tuesday 12:30 PM EDT With: Where: Cardiovascular Services New Follow Up Appointments after Discharge Follow Up with Follow up with your forestry technician as Scheduled January 01 When: Follow Up with Paris Rust When: Within 7 to 10 days Comments: Call for followup appointment Where: [address] [facility] [place] [address] [phone] Business (1) Medications What How Much When Why Instructions Next Dose New azithromycin (azithromycin 250 mg Tab) 1 Tablets By Mouth Every day COPD with acute exacerbation Duration: 3 Days Pickup at [facility] New predniSONE (predniSONE 10 mg Tab) 1 Tablets By Mouth As Directed COPD with acute exacerbation 4tabs for 2 days,3 tabs for 2 days,2 tabs for 2 days,1 tab for 2 days Pickup at [facility] Changed cephalexin (cephalexin 500 mg Cap) 1 Capsules By Mouth 4 times a day Cellulitis of leg Duration: 8 Days Pickup at [facility] Changed furosemide (furosemide 40 mg Tab) 1 Tablets By Mouth 2 times a day Peripheral edema Acute on chronic heart failure with preserved ejection fraction Pickup at [employer] #16 Unchanged albuterol (Albuterol (Eqv-Ventolin HFA) 90 mcg/ inh inhalation aerosol) 2 Puffs Inhalation Every 6 hours as needed for Shortness of breath or wheezing COPD with acute exacerbation [facility] Unchanged aripiprazole (Abilify 5 mg [...] BS TID and P (more content not included)...NormalMain Campus Medical CentereGFRon 91-16-4663nDKS84 mL/min/1.73 z1Dsalcv>=59[facility] Medical CenterComment on above:Performed By: #### [id number] #### [facility] [address] [place] [address] 86059MAO w/ Auto Diffon 17-52-3416Bvvlodrn Absolute0.1 E9/LNormal 0.0-0.2[facility] CenterComment on above:Performed By: #### [id number] #### [facility] [address] [place] [address] 30937Akfsyrvnp/100 WBC (Bld)1.6 %Normal0.0-2.0[facility] Medical CenterComment on above:Performed By: #### [id number] #### [facility] [address] [place] [address] 25033Vio Absolute0.0 E9/LNormal0.0-0.5[facility] Comment on above:Performed By: #### [id number] #### [facility] [address] [place] [address] 20392Lzdbtuxpcqf/100 WBC (Bld)0.1 %Normal0.0-8.0[facility] Medical CenterComment on above:Performed By: #### [id number] #### [facility] [address] [place] [address] 76309Vrqlivghpgc distribution width (RBC) [Ratio]15.7 %High10.9-14.2 [facility] CenterComment on above:Performed By: #### [id number] #### [facility] [address] [place] [address] 61363Vbeojdqrbd (Bld) [Volume fraction]40.0 %Jxkzra85.0-46.0[facility] Medical CenterComment on above:Performed By: #### [id number] #### [facility] [address], [place] [address]Twviwiopaw (Bld) [Mass/Vol]13.7 g/gFWakaon82.0-16.0[facility] CenterComment on above:Performed By: #### [id number] #### [facility] [address] [place] [address] 29857Irrio Absolute0.4 E9/LLow1.0-4.0[facility] Comment on above:Performed By: #### [id number] #### [facility] [address] [place] [address] 62382Revjrphwfnj/100 WBC (Bld)4.8 %Low14.0-50.0[facility] CenterComment on above:Performed By: #### [id number] #### [facility] [address] [place] [address] 84108XBT (RBC) [Entitic mass]31.4 tqTvrsxa83.0-34.0[facility] CenterComment on above:Performed By: #### [id number] #### [facility] [address] [place] [address] 73814GQSZ (RBC) [Mass/Vol]34.3 g/zYRqvora40.4-36.0[facility] CenterComment on above:Performed By: #### [id number] #### [facility] [address] [place] [address] 04381WJI (RBC) [Entitic vol]91.7 jOUbfcvx94.0-100.0[facility] CenterComment on above:Performed By: #### [id number] #### [facility] [address] [place] [address] 13378Nqmy Absolute0.1 E9/LLow0.2-1.0[facility] Comment on above:Performed By: #### [id number] #### [facility] [address], [place] [address]Mfaixjuzq/100 WBC (Bld)1.8 %Low4.0-14.0[facility] CenterComment on above:Performed By: #### [id number] #### [facility] [address], [place] [address]Gucvki Absolute7.4 E9/LNormal2.0-7.5FWilson [facility] Comment on above:Performed By: #### [id number] #### [facility] [address], [place] [address]Uifvhi Auto91.7 %High36.0-75.0[facility] Comment on above:Performed By: #### [id number] #### [facility] [address], [place] [address]Plommyls932.0 E9/NKfyulv792.0-500.0[facility] Comment on above:Performed By: #### [id number] #### [facility] [address] [place] [address] 77746Fxvidjhh mean volume (Bld) [Entitic vol]7.4 fLNormal6.4-10.8 [facility] CenterComment on above:Performed By: #### [id number] #### [facility] [address] [place] [address] 70059CIX7.4 E12/LNormal4.3-5.9[facility] CenterComment on above:Performed By: #### [id number] #### [facility] [address] [place] [address] 29953SDU1.1 E9/LNormal4.0-11.0[facility] CenterComment on above:Performed By: #### [id number] #### [facility] [address] [place] [address] 55301DAJQYTVOVShwwkau By: Vandana Marinelli on 25-42-0533Rrevxmd [Mass/Vol]217 mg/uLDobz07 - 99 mg/dLSOUTHWESTERN [facility] POC SubsectionComment on above:Result Comment: Notified RN/MDPOC UsernamEvans Chairez Interpretation Code [facility] POC SubsectionSodium [Moles/Vol]473634213211 mmol/LInvalid Interpretation CodeSOUTHWESTERN [facility]ICAL [facility] POC SubsectionSodium [Moles/Vol]292025322 mmol/LInvalid Interpretation [facility] POC SubsectionCHEMISTRYOrdered By: SYSTEM SYSTEM on 25-00-8255Sxmfxdl [Mass/Vol]4.5 g/dLNormal3.3 - 5.0 gm/dLRemisol ChemAlbumin/Globulin [Mass ratio] 1.4 {ratio}Normal1.1 - 2.2Remisol ChemALP [Catalytic activity/Vol]62 [iU]/d Xzaabf26 - 98 Int._Unit/LRemisol ChemALT No additional P-5'-P [Catalytic activity/Vol]24 [iU]/dNormal6 - 46 Int._Unit/LRemisol ChemAnion gap [Moles/Vol] 14 mmol/LNormal6 - 16 mEq/LRemisol ChemAST [Catalytic activity/Vol]20 [iU]/d Normal5 - 43 Int._Unit/LRemisol ChemBilirubin [Mass/Vol]0.4 mg/dLNormal0.0 - 1.1 mg/dLRemisol ChemCalcium [Mass/Vol]9.2 mg/dLNormal8.9 - 11.1 mg/dLRemisol Chem Chloride [Moles/Vol]97 mmol/CZoc643 - 111 mmol/LRemisol ChemCO2 [Moles/Vol]28 mmol/SNbqvyi02 - 31 mmol/LRemisol ChemCreatinine [Mass/Vol]0.7 mg/dLNormal0.5 - 1.3 mg/dLRemisol ChemGFR/1.73 sq M.predicted MDRD (S/P/Bld) [Vol rate/Area]98 mL/min/1.73 y9Slvxuq>=59mL/min/1.73 e1Omeecgb ChemGlobulin (S) [Mass/Vol]3.3 g/dLNormal1.4 - 4.0 gm/dLRemisol ChemGlucose [Mass/Vol]157 mg/jEHrpaah85 - 199 mg/dLRemisol ChemPotassium [Moles/Vol]4.0 mmol/LNormal3.5 - 5.3 mmol/LRemisol ChemProtein [Mass/Vol]7.8 g/dLNormal6.0 - 7.8 gm/dLRemisol ChemSodium [Moles/Vol]135 mmol/CBliddl450 - 145 mmol/LRemisol ChemUrea nitrogen [Mass/Vol] 14 mg/dLNormal5 - 21 mg/dLRemisol ChemUrea nitrogen/Creatinine [Mass ratio]20 mg/xhMsgtua99 - 20Remisol ChemCMPon 89-92-4793Mtdghsr [Mass/Vol]4.5 g/dLNormal 3.3-5.0[facility] CenterComment on above:Performed By: #### [id number] #### [facility] [address], [place] [address]Cxzzrfu/Globulin [Mass ratio]1.4 {ratio}Normal1.1-2.2FWilson Memorial HospitalComment on above:Performed By: #### [id number] #### [facility] [address], [place] [address]Csq Phos62 Int._Unit/QGycmkx26-91GgomrcMain Campus Medical Center Comment on above:Performed By: #### [id number] #### [facility] [address], [place] [address]EEJ97 Int._Unit/LNormal6-46[facility] CenterComment on above:Performed By: #### [id number] #### [facility] [address], [place] [address]Jegnx gap [Moles/Vol]14 mmol/LNormal6-16[facility] CenterComment on above:Performed By: #### [id number] #### [facility] [address], [place] [address]FWG44 Int._Unit/LNormal5-43[facility] CenterComment on above:Performed By: #### [id number] #### [facility] [address], [place] [address]Slup Total0.4 mg/dLNormal0.0-1.1FWilson Memorial Hospital Comment on above:Performed By: #### [id number] #### [facility] [address], [place] [address]MTA/Creat Ratio20 No KhakxGogkeh49-30DndzfwMain Campus Medical CenterComment on above:Performed By: #### [id number] #### [facility] [address], [place] [address]Blgjctw [Mass/Vol]9.2 mg/dLNormal8.9-11.1FWilson Memorial HospitalComment on above:Performed By: #### [id number] #### [facility] [address], [place] [address]Agkgviju [Moles/Vol]97 mmol/PEzj782-060FfefdyMain Campus Medical CenterComment on above:Performed By: #### [id number] #### [facility] [address], [place] [address]LR6 [Moles/Vol]28 mmol/IMrnxtv89-09QspjcsMain Campus Medical Center Comment on above:Performed By: #### [id number] #### [facility] [address], [place] [address]Prcwpcjzts [Mass/Vol]0.7 mg/dLNormal0.5-1.3FWilson Memorial HospitalComment on above:Performed By: #### [id number] #### [facility] [address], [place] [address]Hxapqxaz (S) [Mass/Vol]3.3 g/dLNormal1.4-4.0[facility] CenterComment on above:Performed By: #### [id number] #### [facility] [address], [place] [address]Xsevfig [Mass/Vol]157 mg/xLVrdanj17-693FfgufuMain Campus Medical CenterComment on above:Performed By: #### [id number] #### [facility] [address], [place] [address]Qcxnxyylt [Moles/Vol]4.0 mmol/LNormal3.5-5.3FWilson Memorial HospitalComment on above:Performed By: #### [id number] #### [facility] [address], [place] [address]Kvfrzts [Mass/Vol]7.8 g/dLNormal6.0-7.8[facility] CenterComment on above:Performed By: #### [id number] #### [facility] [address], [place] [address]Yhvxdk [Moles/Vol]135 mmol/HDuvtit156-133VfqlndMain Campus Medical CenterComment on above:Performed By: #### [id number] #### [facility] [address], [place] [address]Dqel nitrogen [Mass/Vol]14 mg/dLNormal5-21[facility] CenterComment on above:Performed By: #### [id number] #### [facility] [address], [place] [address]Tvsayukhb Glucose POCon 56-48-0682Gfdbwrf [Mass/Vol]217 mg/dL Kgxq67-77ShdnytMain Campus Medical CenterComment on above:Result Comment: Notified RN/MDPerformed By: #### [id number] #### [facility] [address], [place] [address]Xpjwsoc [Mass/Vol]193 mg/aTAyox44-48HevbozMain Campus Medical Center Comment on above:Result Comment: Notified RN/MDPerformed By: #### [id number] #### [facility] [address], [place] [address]Swrdyuf [Mass/Vol]162 mg/zFZisk91-62RmolkeMain Campus Medical Center Comment on above:Result Comment: Notified RN/MDPerformed By: #### [id number] #### [facility] [address], [place] [address]Jmzygse [Mass/Vol]154 mg/eEDslq80-23WkyxwjMain Campus Medical Center Comment on above:Result Comment: Notified RN/MDPerformed By: #### [id number] #### [facility] [address], [place] [address]Mgcwmw Queryon 61-37-0158Vkjzkv QueryCoding Query From: Anais Wood RN To: [...] answer is desired or expected. Thank you!anais [id number] Osteopathic HospitalHEMATOLOGYOrdered By: SYSTEM SYSTEM on 36-95-4091Ngrddivfr/100 WBC (Bld) 1.6 %Normal0.0 - 2.0 %Remisol HemeBasophils/Leukocytes Auto (Bld) [Pure # fraction]0.1 E9/LNormal0.0 - 0.2 E9/LRemisol HemeEosinophils (Bld) [#/Vol]0.0 E9/LNormal0.0 - 0.5 E9/LRemisol HemeEosinophils/100 WBC (Bld)0.1 %Normal0.0 - 8.0 %Remisol HemeErythrocyte distribution width (RBC) [Ratio]15.7 %High10.9 - 14.2 %Remisol HemeHematocrit (Bld) [Volume fraction]40.0 %Ybgzap34.0 - 46.0 % Remisol HemeHemoglobin (Bld) [Mass/Vol]13.7 g/jUKaqptt86.0 - 16.0 gm/dLRemisol HemeLymphocytes (Bld) [#/Vol]0.4 E9/LLow1.0 - 4.0 E9/LRemisol Heme Lymphocytes/100 WBC (Bld)4.8 %Low14.0 - 50.0 %Remisol HemeMCH (RBC) [Entitic mass]31.4 gyAoxugt38.0 - 34.0 pgRemisol HemeMCHC (RBC) [Mass/Vol]34.3 g/dLNormal 31.4 - 36.0 gm/dLRemisol HemeMCV (RBC) [Entitic vol]91.7 cDDnwlvu16.0 - 100.0 fL Remisol HemeMonocytes (Bld) [#/Vol]0.1 E9/LLow0.2 - 1.0 E9/LRemisol Heme Monocytes/100 WBC (Bld)1.8 %Low4.0 - 14.0 %Remisol HemeNeutrophils (Bld) [#/Vol] 7.4 E9/LNormal2.0 - 7.5 E9/LRemisol HemeNeutrophils/100 WBC (Bld)91.7 %High36.0 - 75.0 %Remisol HemePlatelet mean volume (Bld) [Entitic vol]7.4 fLNormal6.4 - 10.8 fLRemisol HemePlatelets (Bld) [#/Vol]274.0 E9/KUuulwx468.0 - 500.0 E9/L Remisol HemeRBC (Bld) [#/Vol]4.4 E12/LNormal4.3 - 5.9 E12/LRemisol HemeWBC corrected for nucl RBC Auto (Bld) [#/Vol]8.1 E9/LNormal4.0 - 11.0 E9/LRemisol HemeInterdisciplinary Note - Case Manageron 71-32-7440Wgagpmkreijuwwmbh Note - Case ManagerInterdisciplinary Note - Blow [employer] to room 321 Patient is awake, alert and oriented. Patient is from home lives with her Brother. Patient neighboris her ride at [place]. Patient PLOF is independent in self care. [...] huddle with hospitalists ECHO today Possible weekend [facility] HospitalComment on above:Result Comment: Electronically Signed By: Clara Gold\.br\Date and Time Signed: 12/28/24 12:02 EDTInterdisciplinary Note - Case ManagerInterdisciplinary Note - Blow [employer] to room 321 Patient is awake, alert and oriented. Patient is from home lives with her Brother. Patient neighboris her ride at [place]. Patient PLOF is independent in self care. [...] get updates at 10 AM huddle with hospitalistsTriHealth Bethesda Butler HospitalComment on above:Result Comment: Electronically Signed By: Clara Gold\.br\Date and Time Signed: 12/28/24 08:39 EDTUS Lower Extremity Venous Duplex Bilateralon 49-96-2634LC Lower Extremity Venous Duplex BilateralExam Date/Time: 12/27/2024 [...] FINAL REPORT Dictated: 12/28/2024 10:18 am Sathya Christianosn MD Signed (Electronic Signature): 12/28/2024 10:18 am Signed by: Sathya Christianson MD Transcribed by: KARSTEN Technologist: TulioMain Campus Medical CentereGFRon 59-66-4945lWFU39 mL/min/1.73 h0Jehylo>=59[facility] CenterComment on above:Performed By: #### [id number] #### [facility] [address], [place] [address]DAJfm 64-86-5122Dgdqy gap [Moles/Vol]12 mmol/LNormal6-16[facility] CenterComment on above:Performed By: #### [id number] #### [facility] [address], [place] [address]HXQ/Creat Ratio18 No QkipaNouoch75-69CcuqekMain Campus Medical CenterComment on above:Performed By: #### [id number] #### [facility] [address], [place] [address]Qsksuiw [Mass/Vol]8.9 mg/dLNormal8.9-11.1FWilson Memorial HospitalComment on above:Performed By: #### [id number] #### [facility] [address], [place] [address]Zhngbivl [Moles/Vol]100 mmol/OJzm901-037QjqqurMain Campus Medical CenterComment on above:Performed By: #### [id number] #### [facility] [address], [place] [address]RK3 [Moles/Vol]27 mmol/UBvqjnz43-81VyzuboMain Campus Medical Center Comment on above:Performed By: #### [id number] #### [facility] [address], [place] [address]Rgifrwutho [Mass/Vol]0.8 mg/dLNormal0.5-1.3FWilson Memorial HospitalComment on above:Performed By: #### [id number] #### [facility] [address], [place] [address]Dpuxwln [Mass/Vol]147 mg/hWBdowfk85-437InrseqMain Campus Medical CenterComment on above:Performed By: #### [id number] #### [facility] [address], [place] [address]Peytkceai [Moles/Vol]3.9 mmol/LNormal3.5-5.3FWilson Memorial HospitalComment on above:Performed By: #### [id number] #### [facility] [address], [place] [address]Mxzjhn [Moles/Vol]135 mmol/GYasgaf429-074XfczyqMain Campus Medical CenterComment on above:Performed By: #### [id number] #### [facility] [address], [place] [address]Zccq nitrogen [Mass/Vol]14 mg/dLNormal5-21[facility] Medical CenterComment on above:Performed By: #### [id number] #### [facility] [address], [place] [address]AQRfl 50-65-3984Udv Ctr BNPPassNormalMain Campus Medical CenterComment on above:Performed By: #### [id number] #### [facility] [address] [place] [address]Wjkceqdpxiy peptide B (Bld) [Mass/Vol]20 pg/mLNormal5-80[facility] CenterComment on above:Performed By: #### [id number] #### [facility] [address] [place] [address]GAT w/ Auto Diffon 61-01-1276Tfocitjn Absolute0.1 E9/LNormal 0.0-0.2FWilson Memorial HospitalComment on above:Performed By: #### [id number] #### [facility] [address] [place] [address]Lfomzhwfq/100 WBC (Bld)0.8 %Normal0.0-2.0[facility] CenterComment on above:Performed By: #### [id number] #### [facility] [address] [place] [address] 18693Rso Absolute0.1 E9/LNormal0.0-0.5FWilson Memorial Hospital Comment on above:Performed By: #### [id number] #### [facility] [address] [place] [address] 457[address]Fmybqhqmfsk/100 WBC (Bld)1.0 %Normal0.0-8.0[facility] CenterComment on above:Performed By: #### [id number] #### [facility] [address] [place] [address] 475[address]Pdvcofrhjcr distribution width (RBC) [Ratio]15.6 %High10.9-14.2 [facility] CenterComment on above:Performed By: #### [id number] #### [facility] [address] [place] [address] 094[address]Nbnnojbdcm (Bld) [Volume fraction]37.2 %Nvlott39.0-46.0[facility] CenterComment on above:Performed By: #### [id number] #### [facility] [address] [place] [address] 17[address]Cuixaqeixg (Bld) [Mass/Vol]13.2 g/tRWdjjxr78.0-16.0[facility] CenterComment on above:Performed By: #### [id number] #### [facility] [address] [place] [address] 47478Sqkvi Absolute0.9 E9/LLow1.0-4.0[facility] Comment on above:Performed By: #### [id number] #### [facility] [address] [place] [address] 14891Lrnelmnaain/100 WBC (Bld)12.1 %Low14.0-50.0[facility] CenterComment on above:Performed By: #### [id number] #### [facility] [address] [place] [address] 35096QVN (RBC) [Entitic mass]32.2 kySvvvuw55.0-34.0[facility] CenterComment on above:Performed By: #### [id number] #### [facility] [address] [place] [address] 00461PBHY (RBC) [Mass/Vol]35.5 g/zKAprpta12.4-36.0[facility] CenterComment on above:Performed By: #### [id number] #### [facility] [address] [place] [address] 56666XXF (RBC) [Entitic vol]90.8 lABdvahk97.0-100.0[facility] CenterComment on above:Performed By: #### [id number] #### [facility] [address] [place] [address]85[address]Ickh Absolute0.4 E9/LNormal0.2-1.0[facility] Comment on above:Performed By: #### [id number] #### [facility] [address] [place] [address] 21507Dpxkyzxhe/100 WBC (Bld)5.3 %Normal4.0-14.0[facility] CenterComment on above:Performed By: #### [id number] #### [facility] [address] [place] [address] 20485Bxcjni Absolute5.8 E9/LNormal2.0-7.5FWilson Memorial Hospital Comment on above:Performed By: #### [id number] #### [facility] [address] [place] [address] 46[address]Zttajc Auto80.8 %High36.0-75.0[facility] Comment on above:Performed By: #### [id number] #### [facility] [address] [place] [address]Kaukbqun912.0 E9/TPrnmxc672.0-500.0[facility] Comment on above:Performed By: #### [id number] #### [facility] [address] [place] [address]Irepqats mean volume (Bld) [Entitic vol]7.2 fLNormal6.4-10.8 [facility] CenterComment on above:Performed By: #### [id number] #### [facility] [address] [place] [address] 06013LVF1.1 E12/LLow4.3-5.9[facility] Medical CenterComment on above:Performed By: #### [id number] #### [facility] [address] [place] [address] 07394UVA0.2 E9/LNormal4.0-11.0[facility] CenterComment on above:Performed By: #### [id number] #### [facility] [address] [place] [address] 18472XTTBODWCROxaskwv By: SYSTEM SYSTEM on 40-18-1599Mniwttlx HS 27.70 pg/fPLlwm48.10 - 27.10 pg/mLRemisol ChemComment on above:Interpretive Data: The 95% CI (Confidence Interval) PPV (Positive Predictive Value) for myocardial infarction in females is 38 pg/mL, in males 51 pg/mL. The results should be used in conjunction withclinical conditions of myocardial infarction. (Access High Sensitivity Troponin I Instructions For Use, [employer], February 2018)Troponin HS28.80 pg/rYHojq07.10 - 27.10 pg/mLRemisol ChemComment on above:Interpretive Data: The 95% CI (Confidence Interval) PPV (Positive Predictive Value) for myocardial infarction in females is 38 pg/mL, in males 51 pg/mL. The results should be used in conjunction withclinical conditions of myocardial infarction. (Access High Sensitivity Troponin I Instructions For Use, [employer], February 2018)Troponin HS28.80 pg/kCHxmy09.10 - 27.10 pg/mLRemisol ChemComment on above:Interpretive Data: The 95% CI (Confidence Interval) PPV (Positive Predictive Value) for myocardial infarction in females is 38 pg/mL, in males 51 pg/mL. The results should be used in conjunction withclinical conditions of myocardial infarction. (Workspace High Sensitivity Troponin I Instructions For Use, [employer], February 2018)Albumin [Mass/Vol]4.3 g/dLNormal3.3 - 5.0 gm/dLRemisol Chem Albumin/Globulin [Mass ratio]1.4 {ratio}Normal1.1 - 2.2Remisol ChemALP [Catalytic activity/Vol]62 [iU]/nWowwlm08 - 98 Int._Unit/LRemisol ChemALT No additional P-5'-P [Catalytic activity/Vol]23 [iU]/dNormal6 - 46 Int._Unit/L Remisol ChemAnion gap [Moles/Vol]12 mmol/LNormal6 - 16 mEq/LRemisol ChemAST [Catalytic activity/Vol]21 [iU]/dNormal5 - 43 Int._Unit/LRemisol ChemBilirubin [Mass/Vol]0.4 mg/dLNormal0.0 - 1.1 mg/dLRemisol ChemBilirubin.direct [Mass/Vol] 0.1 mg/dLNormal0.0 - 0.4 mg/dLRemisol ChemBilirubin.indirect [Mass or moles/Vol] 0.3 mg/dLNormal0.1 - 0.9 mg/dLRemisol ChemCalcium [Mass/Vol]8.9 mg/dLNormal8.9 - 11.1 mg/dLRemisol ChemChloride [Moles/Vol]100 mmol/KRzk591 - 111 mmol/LRemisol ChemCO2 [Moles/Vol]27 mmol/MXsipam97 - 31 mmol/LRemisol ChemCreatinine [Mass/Vol]0.8 mg/dLNormal0.5 - 1.3 mg/dLRemisol ChemGFR/1.73 sq M.predicted MDRD (S/P/Bld) [Vol rate/Area]83 mL/min/1.73 s0Jbycby>=59mL/min/1.73 o3Fsscrfm Chem Globulin (S) [Mass/Vol]3.0 g/dLNormal1.4 - 4.0 gm/dLRemisol ChemGlucose [Mass/Vol]147 mg/kGXykzdz27 - 199 mg/dLRemisol ChemLactate [Moles/Vol]1.2 mmol/L Normal0.5 [...] g/dLNormal6.0 - 7.8 gm/dL Remisol ChemSodium [Moles/Vol]135 mmol/NFgfqxn618 - 145 mmol/LRemisol ChemTSH Qn 2.71 m[IU]/LNormal0.34 - 5.60 mcIU/mLRemisol ChemUrea nitrogen [Mass/Vol]14 mg/dLNormal5 - 21 mg/dLRemisol ChemUrea nitrogen/Creatinine [Mass ratio]18 mg/mg Vqyeeb18 - 20Remisol ChemCHEMISTRYOrdered By: Liv John on 12-27-2024 Natriuretic peptide B (Bld) [Mass/Vol]20 pg/mLNormal5 - 80 pg/mLSOUTHWESTERN [facility] HemeManSS COAGULATIONOrdered By: Liv John on 15-44-0978lYPW Coag (PPP) [Time]31.4 s Zdwnpv52.1 - 36.5 second(s)[facility] Auto CoagComment on above:Interpretive Data: Parameter 15 [...] the same coagulation reagent and instrumentation as [facility]. Currently there are no coagulation studies available worldwide for children to 14 days, andno normal ranges. Heparin therapeutic range (represented by Anti-Factor Xa activity of 0.2 - 0.4 U/mL) corresponds to PTT of 56.6 - 109.0 sec.INR Coag (PPP) [Relative time]0.96 {INR}Invalid Interpretation CodeSOUTHWESTERN MEDICAL [facility] Auto CoagComment on above:Interpretive Data: INR results are specifically intended to assess patients stabilized on long-term Anticoagulation therapy suggested INR s Less Intensive Anticoagulation 2.0 3.0 Conventional Range 3.0 4.5PT Coag (PPP) [Time]10.7 sNormal9.4 - 12.5 second(s) [facility] Auto CoagComment on above:Interpretive Data: 15 days [...] the same coagulation reagent and instrumentation as [facility]. Currently there are no coagulation studies available worldwide for children to 14 days, andno normal ranges.Capillary Glucose POCon 18-52-6948Pyggwmk [Mass/Vol]157 mg/dLHigh 55-99Main Campus Medical CenterComment on above:Result Comment: Notified RN/MD Performed By: #### [id number] #### [facility] [address] [place] [address]Xlijmdb [Mass/Vol]87 mg/kNRpliwo15-70PwwnndMain Campus Medical CenterComment on above:Result Comment: Notified RN/MDPerformed By: #### [id number] #### [facility] [address] [place] [id number] Clinical Summaryon [id number] Clinical SummaryED Clinical Summary [address] [address] ED Clinical Summary Person Information Name: CARMEN BLEDSOE/[facility] Age: 64 Years : 1960 Sex: Female Language: Cook Islander PCP: Nigel MSN, SHIPPING AND RECEIVING WEIGHER-IRVING, [place] Hamilton Marital Status: Single Visit Id: Visit Reason: Wheezing; Shortness of breath; Edema; cp, sob, swelled feet and legs Speciality: Acuity: 2 Enc Type: Inpatient Med Service: Medical Arrival: 12/27/2024 10:31:36 Discharge: LOS: 000 04:47 Checkin: 12/27/2024 10:31:36 Checkout: 12/27/2024 15:18:27 Dispo Type: Admitted as IP to this [facility] EVENTS: Event Name Event Status Request [...] 12/27/2024 14:13:03 [place] Request 12/27/2024 14:13:45 ADDRESS: [facility] [place] [id number] PHYS DOC NOTES: MEDICAL INFORMATION: Prescriptions Given: [...] 0. Misc Pr (more content not included)...NormalFisher Everett Medical CenterED Note-Physicianon 21-55-7607OW Note-PhysicianED Note-Physician Basic Information Time Seen: Mendez [...] and Complexity of Problems Differential Diagnosis: [] [facility] Data External documents reviewed: [] My EKG [...] 12/27/24 12:52:00 EDT, STAT, (more content not included)...[facility] HospitalComment on above:Result Comment: Electronically Signed By: Mendez Spain, Whit Thurman\.br\Date and Time Signed: 12/27/2512:59 EDTED Patient Education Noteon [id number] Patient Education NoteED [facility] NoteNoGrant [facility] Patient Summaryon [id number] Patient SummaryED Patient Summary [place] [id number] Patient Discharge Instructions Person Information Name: CARMEN [...] 50.0-59.9, adult Primary Care Physician: Nigel SMITH, SHIPPING AND RECEIVING WEIGHER-SHOE COVERER, [place] Hamilton Provider Information Primary Provider: Whit Simms M.D. Advanced Supervisor Fertilizer Processing:None The exam and treatment you received in the Emergency Department were for an urgent problem and are not intended as complete care. It is important that you follow up with a doctor, nurse practitioner,or physician???s manufacturing assistant for ongoing care. If your symptoms [...] opioids can be used to help relieve upocqblb-uc-sfndgo pain and are often prescribed following a [...] and Drug Administration (www (more content not included)...[facility] HospitalHEMATOLOGYOrdered By: SYSTEM SYSTEM on 76-90-4763Uonobcvxe/100 WBC (Bld)0.8 %Normal0.0 - 2.0 %Remisol HemeBasophils/Leukocytes Auto (Bld) [Pure # fraction]0.1 E9/LNormal0.0 - 0.2 E9/LRemisol HemeEosinophils (Bld) [#/Vol]0.1 E9/LNormal0.0 - 0.5 E9/LRemisol HemeEosinophils/100 WBC (Bld)1.0 %Normal0.0 - 8.0 %Remisol HemeErythrocyte distribution width (RBC) [Ratio]15.6 %High10.9 - 14.2 %Remisol HemeHematocrit (Bld) [Volume fraction]37.2 %Azxeyw31.0 - 46.0 %Remisol HemeHemoglobin (Bld) [Mass/Vol]13.2 g/zBHkrkgn90.0 - 16.0 gm/dLRemisol HemeLymphocytes (Bld) [#/Vol] 0.9 E9/LLow1.0 - 4.0 E9/LRemisol HemeLymphocytes/100 WBC (Bld)12.1 %Low14.0 - 50.0 %Remisol HemeMCH (RBC) [Entitic mass]32.2 wpSljgam11.0 - 34.0 pgRemisol HemeMCHC (RBC) [Mass/Vol]35.5 g/kGKovfld05.4 - 36.0 gm/dLRemisol HemeMCV (RBC) [Entitic vol]90.8 cVSuzkdz07.0 - 100.0 fLRemisol HemeMonocytes (Bld) [#/Vol]0.4 E9/LNormal0.2 - 1.0 E9/LRemisol HemeMonocytes/100 WBC (Bld)5.3 %Normal4.0 - 14.0 %Remisol HemeNeutrophils (Bld) [#/Vol]5.8 E9/LNormal2.0 - 7.5 E9/LRemisol Heme Neutrophils/100 WBC (Bld)80.8 %High36.0 - 75.0 %Remisol HemePlatelet mean volume (Bld) [Entitic vol]7.2 fLNormal6.4 - 10.8 fLRemisol HemePlatelets (Bld) [#/Vol] 240.0 E9/YWikbff788.0 - 500.0 E9/LRemisol HemeRBC (Bld) [#/Vol]4.1 E12/LLow4.3 - 5.9 E12/LRemisol HemeWBC corrected for nucl RBC Auto (Bld) [#/Vol]7.2 E9/L Normal4.0 - 11.0 E9/LRemisol HemeHep Func Panelon 87-55-2554Nljelox [Mass/Vol] 4.3 g/dLNormal3.3-5.0Main Campus Medical CenterComment on above:Performed By: #### [id number] #### [facility] [address] [place], [place] [address]Clgpiow/Globulin [Mass ratio]1.4 {ratio}Normal1.1-2.2FWilson Memorial HospitalComment on above:Performed By: #### [id number] #### [facility] [address] [place], [place] [address]Jpa Phos62 Int._Unit/JRttagl55-99IycvwgMain Campus Medical Center Comment on above:Performed By: #### [id number] #### [facility] [address] [place], [place] [address]CYI18 Int._Unit/LNormal6-46Main Campus Medical CenterComment on above:Performed By: #### [id number] #### [facility] [address] [place], [place] [address]MVC42 Int._Unit/LNormal5-43Main Campus Medical CenterComment on above:Performed By: #### [id number] #### [facility] [address], [place] [address]Zcwb Direct0.1 mg/dLNormal0.0-0.4FWilson Memorial Hospital Comment on above:Performed By: #### [id number] #### [facility] [address] [place], [place] [address]Nolg Indirect0.3 mg/dLNormal0.1-0.9[facility] Comment on above:Performed By: #### [id number] #### [facility] [address] [place], [place] [address]Mbcm Total0.4 mg/dLNormal0.0-1.1FWilson Memorial Hospital Comment on above:Performed By: #### [id number] #### [facility] [address] [place], [place] [address]Lycoavde (S) [Mass/Vol]3.0 g/dLNormal1.4-4.0Main Campus Medical CenterComment on above:Performed By: #### [id number] #### [facility] [address], [place] [address]Swwccxm [Mass/Vol]7.3 g/dLNormal6.0-7.8[facility] Campus Medical CenterComment on above:Performed By: #### [id number] #### [facility] [address], [place] [address]Knalkrgparzkmqcfo Note - Case Manageron 12-27-2024 Interdisciplinary Note - Case ManagerInterdisciplinary Note - Blow Torch Burner CRM did chart review Patient was just admitted this afternoon CRM will round for DC needs on 12/28NormalMain Campus Medical CenterComment on above:Result Comment: Electronically Signed By: Clara Gold\.br\Date and Time Signed: 12/27/24 16:41 EDTLactic Acidon 81-98-3855Rfacfx Acid Lvl1.2 mmol/L Normal0.5-2.2FWilson Memorial HospitalComment on above:Performed By: #### [id number] #### [facility] [address] [place], [place] [address]Mu Panel InformationOrdered By: ANGPROCESSSERVER MICROBIOLOGY on 65-07-8205Tkpwh Culture CharcoalNo growth at 2 days. Final to follow at 7 days.[facility] HospitalBlood Culture CharcoalNo growth at 2 days. Final to follow at 7 days.[facility] HospitalPT & PTTon 25-81-0022WSX Coag (PPP) [Relative time]0.96 {INR}Invalid Interpretation CodeMain Campus Medical CenterComment on above:Result Comment: INR results are specifically intended to assess patients stabilized on long-term Anticoagulation therapy suggested INR???s ???Less Intensive Anticoagulation??? 2.0 ??? 3.0 Conventional Range 3.0 ??? 4.5Performed By: #### [id number] #### [facility] [address], [place] [address]CE21.7 second(s)Normal9.4-12.5FWilson Memorial Hospital Comment on above:Result Comment: [...] the same coagulation reagent and instrumentation as [facility]. Currently there are no coagulation studies available worldwide for children to 14 days, andno normal ranges.Performed By: #### [id number] #### [facility] [address], [place] [address]DYX97.4 second(s)Vjfiqk76.1-36.5FWilson Memorial Hospital Comment on above:Result Comment: Parameter [...] the same coagulation reagent and instrumentation as [facility]. Currently there are no coagulation studies available worldwide for children to 14 days, andno normal ranges. Heparin therapeutic range (represented by Anti-Factor Xa activity of 0.2 - 0.4 U/mL) corresponds to PTT of 56.6 - 109.0 sec.Performed By: #### [id number] #### [facility] [address], [place] [address]Eugkjbtculstlbr 16-75-5910Jtrqtfkghqcki.08 ng/mLNormal.00-.50 [facility] Campus Medical CenterComment on above:Result Comment: <0.5 ng/mL Low risk [...] within 6 to 24 hours.Performed By: #### [id number] #### [facility] [address] [place], [place] [address]Respiratory Panel by PCRon 96-98-6252CdstxgfbepDzm detected NormalMain Campus Medical CenterComment on above:Result Comment: Testing was performed using nucleic acid amplification including Influenza A, Influenza A H1, Influenza A H3, Influenza B, RSV A, RSV B, Adenovirus, Human Metapneumovirus, Parainfluenza 1,2,3, and 4, Rhinovirus, Bordetella parapertussis/bronchiseptica, Bordetella holmesii, and Bordetella pertussis. Performed By: #### [id number] #### [facility] [address] [place] [address]. holmesiiNot detectedNormalMain Campus Medical CenterComment on above:Performed By: #### [id number] #### [facility] [address] [place] [address]. parapertussis/bronchisepticaNot detectedNormalNot Detected [facility] Campus Medical CenterComment on above:Performed By: #### [id number] #### [facility] [address] [id number]. pertussisNot detectedNormalNot DetectedMain Campus Medical CenterComment on above:Performed By: #### [id number] #### [facility] [address] [place], [place] [address]Human MetapneumovirusNot detectedNormalMain Campus Medical CenterComment on above:Result Comment: This test result should be correlated with clinical presentations and medical history by a healthcare provider to determine its clinical significance.Performed By: #### [id number] #### [facility] [address], [place] [address]Vvgwptbsp ANot detectedNormalFisher Western Maryland Hospital CenterComment on above:Performed By: #### [id number] #### [facility] [address] [place], [place] [address]Zmxarczxi A (subtype H1)Not detectedNormalFisher Western Maryland Hospital CenterComment on above:Performed By: #### [id number] #### [facility] [address] [place], [place] [address]Wxrtsfcak A (subtype H3)Not detectedNormalFisher Western Maryland Hospital CenterComment on above:Performed By: #### [id number] #### [facility] [address] [place], [place] [address]Pomprnknn BNot detectedNormalFisher Western Maryland Hospital CenterComment on above:Performed By: #### [id number] #### [facility] [address] [place], [place] [address]Pwztuwqdgjkbt 1Not detectedNormalMain Campus Medical Center Comment on above:Performed By: #### [id number] #### [facility] [address], [place] [address]Wnclynsrwuunq 2Not detectedNormalNovant Health Thomasville Medical Centerer [facility] Comment on above:Performed By: #### [id number] #### [facility] [address], [place] [address]Spuqermoylviw 3Not detectedNormalNovant Health Thomasville Medical Centerer [facility] Comment on above:Performed By: #### [id number] #### [facility] [address] [place], [place] [address]Voxqmwohbqbph 4Not detectedNormalNovant Health Thomasville Medical Centerer [facility] Comment on above:Performed By: #### [id number] #### [facility] [address] [place], [place] [address]Iizi Panel Intrl QCPassNormalFisher Everett Medical CenterComment on above:Performed By: #### [id number] #### [facility] [address] [place] [address]DlqobjfnbmBaz detectedNoDayton Osteopathic HospitalComment on above:Performed By: #### [id number] #### [facility] [address] [place] [address]SHA ANot detectedNormWestern Reserve HospitalComment on above:Performed By: #### [id number] #### [facility] [address] [place] [address]SNQ BNot detectedNormWestern Reserve HospitalComment on above:Performed By: #### [id number] #### [facility] [address] [place] [address]GZP With T4fr Reflexon 30-24-0444VTR Qn2.71 m[IU]/LNormal 0.34-5.60[facility] Campus Medical CenterComment on above:Performed By: #### [id number] #### [facility] [address] [place] [address]Qfdgavdq 0 Hr.on 29-52-2107Zpntolyh HS32.40 pg/mLHigh 10.10-27.10Main Campus Medical CenterComment on above:Result Comment: The 95% CI (Confidence Interval) PPV (Positive Predictive Value) for myocardial infa rction in females is 38 pg/mL, in males 51 pg/mL. The results should be used in conjunction with clinical conditions of myocardial infarction. (Access High Sensitivity Troponin I Instructions For Use, [employer] [place], February 2018)Performed By: #### [id number] #### [facility] [address] [place] [address]Pgduaxpa 1 Hr.on 65-42-1138Hilvwsrk HS28.80 pg/mLHigh 10.10-27.10Main Campus Medical CenterComment on above:Order Comment: 1143Result Comment: The 95% CI (Confidence Interval) PPV (Positive Predictive Value) for myocardial infarction in females is 38 pg/mL, in males 51 pg/mL. The results should be used in conjunction with clinical conditions of myocardial infarction. (Access High Sensitivity Troponin I Instructions For Use, Voov[employer] aka [employer], February 2018)Performed By: #### [id number] #### [facility] [address], [place] [address]Funztxxs 3 Hr.on 06-96-5971Wmluxwdo HS28.80 pg/mLHigh 10.10-27.10[facility] Campus Medical CenterComment on above:Result Comment: The 95% CI (Confidence Interval) PPV (Positive Predictive Value) for myocardial infa rction in females is 38 pg/mL, in males 51 pg/mL. The results should be used in conjunction with clinical conditions of myocardial infarction. (Workspace High Sensitivity Troponin I Instructions For Use, [employer] aka [employer], February 2018)Performed By: #### [id number] #### [facility] [address], [place] [address]Dzuufvmz 6 Hr.on 35-91-5148Hajydgpp HS27.70 pg/mLHigh 10.10-27.10[facility] Campus Medical CenterComment on above:Result Comment: The 95% CI (Confidence Interval) PPV (Positive Predictive Value) for myocardial infa rction in females is 38 pg/mL, in males 51 pg/mL. The results should be used in conjunction with clinical conditions of myocardial infarction. (Workspace High Sensitivity Troponin I Instructions For Use, [employer] aka [employer], February 2018)Performed By: #### [id number] #### [facility] [address], [place] [address]LA Chest Single Viewon 91-06-6079TB Chest Single ViewExam Date/Time: 12/27/2024 11:06 EDT [...] Sathya Christianson MD Transcribed by: KARSTEN Technologist: MAKormalMain Campus Medical CentereGFRon 00-91-3707yKIB70 mL/min/1.73 u0Cdzilb>=59Main Campus Medical CenterComment on above:Performed By: #### [id number] #### [facility] [address], [place] [address]Mxfktjqjlf Visit Summaryon 70-93-3122Fbmiatrsia Visit Summary Ambulatory Visit Summary CARMEN BLEDSOE :1960 Visit Date:12/19/2024 Ambulatory Visit Instructions Your Diagnosis Type 2 diabetes mellitus with morbid obesity Shortness of breath on exertion Benign hypertension Chronic insomnia Heart failure with preserved ejection fraction Obstructive sleep apnea History of alcohol abuse Morbid obesity with BMI of 50.0-59.9, adult BMI 50.0-59.9, adult Your Care Team Attending Physician - Nigel SMITH, SHIPPING AND RECEIVING WEIGHER-Paris VILLATORO Primary Care Physician - Nigel SMITH, SHIPPING AND RECEIVING WEIGHER-SHOE COVERERParis This Is Your Medications List Contact prescribing [...] With: Rick Hernandez PA-C Where: [facility] Tuesday 1:40 PM EDT With: Nigel SMITH, [place] ESPINO Where: [facility] [address] [id number]- You Need to Schedule the Following Appointments Follow Up with Nigel SMITH, SRINIVAS, [place] Hamilton When: In 2 weeks Comments: chronic care Where: [address] [place] [phone] You Need to Complete the Following Microalbumin [...] (Nebulizer Machine) See instru (more content not included)...[facility] HospitalCHEMISTRYOrdered By: SYSTEM SYSTEM on 85-41-2617Hmxcjvp [Mass/Vol]4.4 g/dLNormal3.3 - 5.0 gm/dLRemisol Chem Albumin/Globulin [Mass ratio]1.5 {ratio}Normal1.1 - 2.2Remisol ChemALP [Catalytic activity/Vol]60 [iU]/iNjypzj94 - 98 Int._Unit/LRemisol ChemALT No additional P-5'-P [Catalytic activity/Vol]31 [iU]/dNormal6 - 46 Int._Unit/L Remisol ChemAnion gap [Moles/Vol]13 mmol/LNormal6 - 16 mEq/LRemisol ChemAST [Catalytic activity/Vol]29 [iU]/dNormal5 - 43 Int._Unit/LRemisol ChemBilirubin [Mass/Vol]0.4 mg/dLNormal0.0 - 1.1 mg/dLRemisol ChemCalcium [Mass/Vol]9.4 mg/dL Normal8.9 - 11.1 mg/dLRemisol ChemChloride [Moles/Vol]95 mmol/XFnj076 - 111 mmol/LRemisol ChemCO2 [Moles/Vol]30 mmol/HRwljpe79 - 31 mmol/LRemisol Chem Creatinine [Mass/Vol]0.7 mg/dLNormal0.5 - 1.3 mg/dLRemisol ChemGFR/1.73 sq M.predicted MDRD (S/P/Bld) [Vol rate/Area]98 mL/min/1.73 k8Jotboh>=59mL/min/1.73 v1Zoukwgr ChemGlobulin (S) [Mass/Vol]2.9 g/dLNormal1.4 - 4.0 gm/dLRemisol Chem Glucose [Mass/Vol]88 mg/pGJvruyq53 - 199 mg/dLRemisol ChemPotassium [Moles/Vol] 4.0 mmol/LNormal3.5 - 5.3 mmol/LRemisol ChemProtein [Mass/Vol]7.3 g/dLNormal6.0 - 7.8 gm/dLRemisol ChemSodium [Moles/Vol]134 mmol/JBvz169 - 145 mmol/LRemisol ChemUrea nitrogen [Mass/Vol]8 mg/dLNormal5 - 21 mg/dLRemisol ChemUrea nitrogen/Creatinine [Mass ratio]11 mg/bbTqjmmb27 - 20Remisol ChemCHEMISTRY Ordered By: Katya Preciado on 57-54-7290EzN6r (Bld) [Mass fraction]6.1 %High <=5.9%[facility] ChemAutoSSCMPon 02-70-2952Alwvllt [Mass/Vol]4.4 g/dLNormal3.3-5.0 [facility] Medical CenterComment on above:Performed By: #### [id number] #### [facility] [address], [place] [address]Xrkpjwo/Globulin [Mass ratio]1.5 {ratio}Normal1.1-2.2FWilson Memorial HospitalComment on above:Performed By: #### [id number] #### [facility] [address] [place], [place] [address]Mhx Phos60 Int._Unit/OZbenst88-51LehyaxMain Campus Medical Center Comment on above:Performed By: #### [id number] #### [facility] [address], [place] [address]ARP07 Int._Unit/LNormal6-46[facility] Medical CenterComment on above:Performed By: #### [id number] #### [facility] [address] [place], [place] [address]Zwjgd gap [Moles/Vol]13 mmol/LNormal6-16[facility] Medical CenterComment on above:Performed By: #### [id number] #### [facility] [address] [place], [place] [address]SMH04 Int._Unit/LNormal5-43[facility] Medical CenterComment on above:Performed By: #### [id number] #### [facility] [address] [place], [place] [address]Vaqn Total0.4 mg/dLNormal0.0-1.1FWilson Memorial Hospital Comment on above:Performed By: #### [id number] #### [facility] [address] [place], [place] [address]DKI/Creat Ratio11 No VermwSnmayf37-57BqwplcMain Campus Medical CenterComment on above:Performed By: #### [id number] #### [facility] [address] [place], [place] [address]Vtdhyei [Mass/Vol]9.4 mg/dLNormal8.9-11.1FWilson Memorial HospitalComment on above:Performed By: #### [id number] #### [facility] [address], [place] [address]Egakuczg [Moles/Vol]95 mmol/BXzz122-614EoedepMain Campus Medical CenterComment on above:Performed By: #### [id number] #### [facility] [address], [place] [address]BE8 [Moles/Vol]30 mmol/PPqxssk59-08FtfmujMain Campus Medical Center Comment on above:Performed By: #### [id number] #### [facility] [address], [place] [address]Tyfrqlzqfu [Mass/Vol]0.7 mg/dLNormal0.5-1.3FWilson Memorial HospitalComment on above:Performed By: #### [id number] #### [facility] [address] [place], [place] [address]Xeweerqm (S) [Mass/Vol]2.9 g/dLNormal1.4-4.0[facility] Medical CenterComment on above:Performed By: #### [id number] #### [facility] [address], [place] [address]Mqkprqd [Mass/Vol]88 mg/eWFtvuuk18-489LkwrnbMain Campus Medical CenterComment on above:Performed By: #### [id number] #### [facility] [address] [place] [address]Fplyidptu [Moles/Vol]4.0 mmol/LNormal3.5-5.3FWilson Memorial HospitalComment on above:Performed By: #### [id number] #### [facility] [address], [place] [address]Lxcbdro [Mass/Vol]7.3 g/dLNormal6.0-7.8[facility] Medical CenterComment on above:Performed By: #### [id number] #### [facility] [address], [place] [address]Uqnzbb [Moles/Vol]134 mmol/NLgq735-259TagmopMain Campus Medical CenterComment on above:Performed By: #### [id number] #### [facility] [address], [place] [address]Pftz nitrogen [Mass/Vol]8 mg/dLNormal5-21[facility] Medical CenterComment on above:Performed By: #### [id number] #### [facility] [address], [place] [address]Ezxafp Medicine Office/Clinic Noteon 38-58-5392Mbtrma Medicine Office/Clinic NoteFamily Medicine Office/Clinic Note Chief [...] pressure. Impaired diastolic relaxation. List of Providers: Supervisor Tile [employer]ottle: Rick Hernandez PA-C Visual Effects Editor: Dr Phillip Orthopaedics: Dr Martinez LABS Cr/eGFR: [...] 2:00 PM Scheduled Provider: Rick [place], [address] Phone: [phone] Fax: [phone] The patient is presenting with shortness of [...] and possibly loss of l (more contentnot included)...[facility] HospitalComment on above:Result Comment: Electronically Signed By: Nigel MSN, SHIPPING AND RECEIVING WEIGHER-SHOE COVERERParis\.br\Date and Time Signed: 12/19/24 16:05 ZLIXtyC4vzc 70-20-3072JeJ8x (Bld) [Mass fraction]6.1 %High<=5.9[facility] Medical CenterComment on above: Performed By: #### [id number] #### [facility] [address], [place] [address]QN Chest 2 Viewson 79-45-1039IL Chest 2 ViewsExam Date/Time: 12/19/2024 13:31 EDT [...] Mark Stevens MD Transcribed by: KARSTEN Technologist: TLZNTriHealth McCullough-Hyde Memorial HospitaleGFRon 03-92-9519lALV39 mL/min/1.73 f2Wdacss>=59[facility] CenterComment on above:Performed By: #### [id number] #### [facility] [address] [place], [place] [address]Gyqbaucnyr Visit Summaryon 43-47-2841Acynlcucff Visit Summary Ambulatory Visit Summary CARMEN BLEDSOE [...] EDT With: Nigel SMITH, [place] ESPINO Where: [facility] [address] [place] [address]- Tuesday 2:00 PM EDT With: Rick Hernandez PA-C Where: [facility] You Need to Schedule the Following Appointments Follow Up with Nigel SMITH, [place] ESPINO When: Only if needed Where: [address] [place] [phone] Medications What How Much When Why Instructions New albuterol (Albuterol (Eqv-Ventolin HFA) 90 mcg/ inh inhalation aerosol) 2 Puffs Inhalation Every 6 hours as needed for Shortness of breath or wheezing Refills: 3 Pickup at [facility] #[id number] New fluticasone-salmeterol (Advair Diskus 250 mcg-50 mcg inhalation powder) 1 Puffs Inhalation 2 times a day Duration: 30 Days Pickup at [facility] #[id number] Unchanged glipiZIDE (glipiZIDE 2.5 mg ER Tab) 1 Tablets By Mouth Every day [id number] Unchanged rosuvastatin (Crestor 40 mg Tab) 1 Tablets By Mouth Every day Mixed hyperlipidemia [facility]10336 Unchanged aripiprazole (Abilify 5 mg Tab) 1 [...] Every day Contact prescr (more content not included)...[facility] Family Medicine Office/Clinic Noteon [id number] Medicine Office/Clinic NoteFami Medicine Office/Clinic Note Chief [...] medical options pending insurance approval for the [facility]. Preparation for potential bariatric intervention continues [...] again. Will continue following up with the forestry technician. Ordered: Current tobacco smoker 1034F Depression Screening [...] that time she is already seeing the grinding machine operator and they have ordered the PFT if [...] (F10.90: Alcohol u (more content not included)... [facility] HospitalComment on above:Result Comment: Electronically Signed By: Nigel SMITH, Paris ESPINO\.br\Date and Time Signed: 11/27/24 17:35 EDTAmbulatory Visit Summaryon [id number] Visit SummaryAmbulatory Visit Summary CARMEN BLEDSOE :1960 [...] With: Rick Hernandez PA-C Where: [facility] Tuesday 12:40 PM EDT With: Nigel SMITH, DARLEEN-Paris VILLATORO Where: [facility] [address] [place] [address]- You Need to Schedule the Following Appointments Follow Up with Nigel SMITH, Paris ESPINO When: In 3 months Comments: chronic care Where: [address] [place] [phone] Someone Will Contact You Regarding These Appointments [facility] External Ambulatory Referral, Surgery, [facility] Bariatric surgery, [...] asthma Unchanged pantoprazole (Pantopr (more content not included)...[facility] HospitalCHEMISTRYOrdered By: SYSTEM SYSTEM on 39-68-0943Oareqfy [Mass/Vol] 4.3 g/dLNormal3.3 - 5.0 gm/dLRemisol ChemAlbumin/Globulin [Mass ratio]1.5 {ratio}Normal1.1 - 2.2Remisol ChemALP [Catalytic activity/Vol]54 [iU]/hLrgohi44 - 98 Int._Unit/LRemisol ChemALT No additional P-5'-P [Catalytic activity/Vol]18 [iU]/dNormal6 - 46 Int._Unit/LRemisol ChemAnion gap [Moles/Vol]11 mmol/LNormal6 - 16 mEq/LRemisol ChemAST [Catalytic activity/Vol]18 [iU]/dNormal5 - 43 Int._Unit/LRemisol ChemBilirubin [Mass/Vol]0.4 mg/dLNormal0.0 - 1.1 mg/dLRemisol ChemCalcium [Mass/Vol]9.1 mg/dLNormal8.9 - 11.1 mg/dLRemisol ChemChloride [Moles/Vol]98 mmol/CFgy009 - 111 mmol/LRemisol ChemCO2 [Moles/Vol]27 mmol/L Bjrnzj14 - 31 mmol/LRemisol ChemCreatinine [Mass/Vol]0.7 mg/dLNormal0.5 - 1.3 mg/dLRemisol KalvkFGL56 mL/min/1.73 f8Cymdxx>=59mL/min/1.73 n9Emjecyn Chem Globulin (S) [Mass/Vol]2.8 g/dLNormal1.4 - 4.0 gm/dLRemisol ChemGlucose [Mass/Vol]95 mg/zVObtrzm58 - 199 mg/dLRemisol ChemPotassium [Moles/Vol]4.0 mmol/LNormal3.5 - 5.3 mmol/LRemisol ChemProtein [Mass/Vol]7.1 g/dLNormal6.0 - 7.8 gm/dLRemisol ChemSodium [Moles/Vol]132 mmol/TLhy174 - 145 mmol/LRemisol Chem Urea nitrogen [Mass/Vol]12 mg/dLNormal5 - 21 mg/dLRemisol ChemUrea nitrogen/Creatinine [Mass ratio]17 mg/bzKfwxtu65 - 20Remisol ChemCMPon 32-40-9405Nlnkjaq [Mass/Vol]4.3 g/dLNormal3.3-5.0[facility] Comment on above:Performed By: #### [id number] #### [facility] [address], [place] [address]Zvqlvpj/Globulin (S) [Mass conc ratio]1.2Jacddq7.1-2.2FWilson Memorial HospitalComment on above:Performed By: #### [id number] #### [facility] [address], [place] [address]QSU [Catalytic activity/Vol]54 Int._Unit/EQnqdlh66-75GumdatMain Campus Medical CenterComment on above:Performed By: #### [id number] #### [facility] [address], [place] [address]BIX No additional P-5'-P [Catalytic activity/Vol]18 Int._Unit/L Normal6-46[facility] Medical CenterComment on above:Performed By: #### [id number] #### [facility] [address], [place] [address]Krozy gap [Moles/Vol]11 mmol/LNormal6-16[facility] Medical CenterComment on above:Performed By: #### [id number] #### [facility] [address], [place] [address]CYC [Catalytic activity/Vol]18 Int._Unit/LNormal5-43[facility] Medical CenterComment on above:Performed By: #### [id number] #### [facility] [address], [place] [address]Siiybrgzh [Mass/Vol]0.4 mg/dLNormal0.0-1.1FWilson Memorial HospitalComment on above:Performed By: #### [id number] #### [facility] [address], [place] [address]Ukbsibs [Mass/Vol]9.1 mg/dLNormal8.9-11.1FWilson Memorial HospitalComment on above:Performed By: #### [id number] #### [facility] [address], [place] [address]Jijgcniq [Moles/Vol]98 mmol/VWab276-780WlxzgvMain Campus Medical CenterComment on above:Performed By: #### [id number] #### [facility] [address], [place] [address]MW2 [Moles/Vol]27 mmol/HQfhqhw77-16CqnmxnMain Campus Medical Center Comment on above:Performed By: #### [id number] #### [facility] [address], [place] [address]Botheipzzd [Mass/Vol]0.7 mg/dLNormal0.5-1.3FWilson Memorial HospitalComment on above:Performed By: #### [id number] #### [facility] [address], [place] [address]Gccxsdfk (S) [Mass/Vol]2.8 g/dLNormal1.4-4.0[facility] CenterComment on above:Performed By: #### [id number] #### [facility] [address], [place] [address]Bgwvgvn [Mass/Vol]95 mg/nLOboliu26-527LgsgphMain Campus Medical CenterComment on above:Performed By: #### [id number] #### [facility] [address], [place] [address]Otyfmmtcw [Moles/Vol]4.0 mmol/LNormal3.5-5.3FWilson Memorial HospitalComment on above:Performed By: #### [id number] #### [facility] [address], [place] [address]Rfarnpd [Mass/Vol]7.1 g/dLNormal6.0-7.8[facility] CenterComment on above:Performed By: #### [id number] #### [facility] [address], [place] [address]Hzijny [Moles/Vol]132 mmol/JMgl537-124CdjbhmMain Campus Medical CenterComment on above:Performed By: #### [id number] #### [facility] [address], [place] [address]Umsu nitrogen [Mass/Vol]12 mg/dLNormal5-21[facility] CenterComment on above:Performed By: #### [id number] #### [facility] [address], [place] [address]Zoxc nitrogen/Creatinine [Mass ratio]17 No ZbpvqJnpjeb63-76 [facility] CenterComment on above:Performed By: #### [id number] #### [facility] [address], [place] [address]Ehqcnl Medicine Office/Clinic Noteon 83-77-7687Phsxau Medicine Office/Clinic NoteFaspaulding rehabilitation hospital Medicine Office/Clinic Note Chief Complaint Desire for [...] pressure. Impaired diastolic relaxation. List of Providers: Supervisor [employer]: Rick Hernandez PA-C Visual Effects Editor: Dr Phillip Orthopaedics: Dr Martinez LABS Cr/eGFR: [...] AM Scheduled Provider: Rick Hernandez PA-C [address] [place], [address] Phone: [phone] Fax: [phone] The patient is presenting with concerns surrounding [...] Denies current e (more content not included)...Normal [facility] CenterComment on above:Result Comment: Electronically Signed By: Nigel SMITH, SHIPPING AND RECEIVING WEIGHER-IRVING, Paris Hamilton\.br\Date and Time Signed: 09/12/24 15:31 EDTeGFRon 16-98-4675zAMY09 mL/min/1.73 s7Cnqssb>=59DemarGrace Medical CenterComment on above:Performed By: #### [id number] #### [facility] [address], [place] [address]Pluochmy Letteron 17-96-5524Dvgqpfei LetterProvider Letter September 04, 2024 CARMEN LADI [address] [place] [address] : 1960 Dear Carmen, We have been trying to reach you with no success. Please call us at [phone] in regards to rescheduling your Colonoscopy. Thank you for your prompt attention to this matter. Sincerely, [facility]Ambulatory Visit Summaryon 52-68-5214Fmjnrwmtim Visit SummaryAmbulatory Visit Summary CARMEN BLEDSOE :1960 Visit Date:07/18/2024 Ambulatory Visit Instructions Your Diagnosis Type 2 diabetes mellitus with morbid obesity Alcohol problem drinking Bilateral leg edema Morbid obesity, Morbid (severe) obesity due to excess calories BMI 50.0-59.9, adult Your Care Team Attending Physician - Nigel SMITH, SHIPPING AND RECEIVING WEIGHER-Paris VILLATORO Primary Care Physician - Nigel SMITH, SHIPPING AND RECEIVING WEIGHER-Paris VILLATORO This Is Your Medications List semaglutide [...] Follow-Up Appointments Tuesday 1:00 PM EST With: Niegl SMITH, Paris ESPINO Where: [facility] [address] [place] [address]- Tuesday 11:00 AM EST With: Where: [facility] Tuesday 11:00 AM EDT With: Rick Hernandez PA-C Where: [facility] You Need to Schedule the Following Appointments Follow Up with Nigel SMITH, SRINIVAS, Paris Hamilton When: Only if needed Comments: keep next month appt Where: [address] [place] [phone] Medications What How Much When Why Instructions New semaglutide (Ozempic 2 mg/ 3 mL (0.25 mg or 0.5 mg dose) subcutaneous solution) 0.5 Milligram Subcutaneous Every week Type 2 diabetes mellitus with morbid obesity Pickup at [employer] #09997 Unchanged albuterol (albuterol 0.083% Inh Rochelle 3 [...] PRN dx E11.9 Co (more content not included)...[facility] Medicine Office/Clinic Noteon 55-48-3016Sirxbf Medicine Office/Clinic NoteFaspaulding rehabilitation hospital Medicine Office/Clinic Note Chief Complaint The patient [...] qWeek, # 2 EA, Refills(s) 0, Pharmacy: [facility] #[id number], 168, cm, 07/18/24 11:59:00 EST, Height/Length Dosing, [...] Nigel SMITH, DARLEEN-Paris VILLATORO Only if needed [address] [place] [phone] Additional Instructions: keep next month appt Patient [...] syndrome Right hip p (more content not included)...[facility] Comment on above:Result Comment: Electronically Signed By: Nigel SMITH, SHIPPING AND RECEIVING WEIGHER-Paris VILLATORO\.br\Date and Time Signed: 07/18/24 12:22 BPDXhfX3sop 04-26-5225IhN5h (Bld) [Mass fraction]5.7 %Normal<=5.9[facility] CenterComment on above:Performed By: #### [id number] #### [facility] [address] [place] [address]Hxvcjzkibv Visit Summaryon 72-89-8856Bimslghdpo Visit Summary Ambulatory Visit Summary CARMEN BLEDSOE [...] EST With: SRINIVAS Pereyra Tammy L. Where: [address] [address]- Tuesday 1:00 PM EST With: SRINIVAS Pereyra Tammy L. Where: [facility] [address] [place] [address]- Tuesday 11:00 AM EST With: Where: [facility] Tuesday 11:00 AM EDT With: Rick Hernandez PA-C Where: [facility] Medications What How Much When Why Instructions [...] problem that you are (more content not included)...[facility] HospitalAmbulatory Visit SummaryAmbulatory Visit Summary CARMEN BLEDSOE :1960 [...] Team Primary Care Physician - Nigel MSN, SHIPPING AND RECEIVING WEIGHER-SHOE COVERER, Paris Hamilton This Is Your Medications List [...] EST With: Nigel SMITH, DARLEEN-Paris VILLATORO Where: [address] [address]- Tuesday 1:00 PM EST With: Nigel SMITH, DARLEEN-Paris VILLATORO Where: [address] [phone]- Tuesday 11:00 AM EST With: Where: [facility] Tuesday 11:00 AM EDT With: Rick Hernandez PA-C Where: [facility] You Need to Complete the Following Agymb-8-Hqubofkhzpn, Blood, Routine collect, 11/02/23, Order for future [...] future visit, Lab Collec (more content not included)...NormalMain Campus Medical CenterBNPon 60-36-7901Pnv Ctr BNPPassNormalMain Campus Medical CenterComment on above: Performed By: #### [id number] #### [facility] [address], [place] [address]Xvemcpxjbnr peptide B (Bld) [Mass/Vol]39 pg/mLNormal5-80[facility] CenterComment on above:Performed By: #### [id number] #### [facility] [address] [place] [address]YFZ w/ Auto Diffon 60-02-0438Waxyiodrv/100 WBC (Bld)0.7 %Normal 0.0-2.0[facility] CenterComment on above:Performed By: #### [id number] #### [facility] [address] [place] [address]Nkwpsgvvr/Leukocytes Auto (Bld) [Pure # fraction]0.0 E9/LNormal 0.0-0.2FWilson Memorial HospitalComment on above:Performed By: #### [id number] #### [facility] [address] [place] [address]Ympvgsvqizb (Bld) [#/Vol]0.1 E9/LNormal0.0-0.5FWilson Memorial HospitalComment on above:Performed By: #### [id number] #### [facility] [address] [place] [address]Elloyuosayy/100 WBC (Bld)1.1 %Normal0.0-8.0[facility] CenterComment on above:Performed By: #### [id number] #### [facility] [address] [place] [address]Dvgdbcrnmdp distribution width (RBC) [Ratio]15.5 %High10.9-14.2 [facility] CenterComment on above:Performed By: #### [id number] #### [facility] [address] [place] [address]Smscrummts (Bld) [Volume fraction]41.1 %Ypcanq89.0-46.0[facility] CenterComment on above:Performed By: #### [id number] #### [facility] [address] [place] [address]Twtimayive (Bld) [Mass/Vol]14.2 g/lGCuvgww54.0-16.0[facility] CenterComment on above:Performed By: #### [id number] #### [facility] [address] [place] [address]Gxuisrxdtkl (Bld) [#/Vol]1.2 E9/LNormal1.0-4.0[facility] CenterComment on above:Performed By: #### [id number] #### [facility] [address] [place] [address]Jatohzafrcu/100 WBC (Bld)18.3 %Fkwxce45.0-50.0[facility] CenterComment on above:Performed By: #### [id number] #### [facility] [address] [place] [address]EJP (RBC) [Entitic mass]32.3 tlEwblvu12.0-34.0[facility] CenterComment on above:Performed By: #### [id number] #### [facility] [address] [place] [address]BJDK (RBC) [Mass/Vol]34.5 g/lFZaiapp92.4-36.0[facility] CenterComment on above:Performed By: #### [id number] #### [facility] [address] [place] [address]BRQ (RBC) [Entitic vol]93.7 dUItvrjv85.0-100.0[facility] CenterComment on above:Performed By: #### [id number] #### [facility] [address] [place] [address]Dwhdwmaeh (Bld) [#/Vol]0.4 E9/LNormal0.2-1.0[facility] CenterComment on above:Performed By: #### [id number] #### [facility] [address] [place] [address]Dtxmlldctkv (Bld) [#/Vol]4.8 E9/LNormal2.0-7.5FWilson Memorial HospitalComment on above:Performed By: #### [id number] #### [facility] [address] [place] [address]Vbshmsrqcyg/100 WBC (Bld)74.5 %Kuypqo41.0-75.0[facility] CenterComment on above:Performed By: #### [id number] #### [facility] [address] [place] [address]Kpohakfp mean volume (Bld) [Entitic vol]8.3 fLNormal6.4-10.8 [facility] CenterComment on above:Performed By: #### [id number] #### [facility] [address] [place] [address]Uaryfgxap (Bld) [#/Vol]239.0 E9/FAlypmo428.0-500.0[facility] CenterComment on above:Performed By: #### [id number] #### [facility] [address] [place] [address]AXX (Bld) [#/Vol]4.4 E12/LNormal4.3-5.9[facility] CenterComment on above:Performed By: #### [id number] #### [facility] [address] [place] [address]XQA corrected for nucl RBC Auto (Bld) [#/Vol]6.5 E9/LNormal 4.0-11.0[facility] CenterComment on above:Performed By: #### [id number] #### [facility] [address] [place] [address]VEZCZHJTYWotnvgw By: SYSTEM SYSTEM on 89-82-1189Lhxjmpo [Mass/Vol]4.3 g/dLNormal3.3 - 5.0 gm/dLRemisol ChemAlbumin/Globulin [Mass ratio] 1.3 {ratio}Normal1.1 - 2.2Remisol ChemALP [Catalytic activity/Vol]66 [iU]/d Ocbmvo62 - 98 Int._Unit/LRemisol ChemALT No additional P-5'-P [Catalytic activity/Vol]23 [iU]/dNormal6 - 46 Int._Unit/LRemisol ChemAnion gap [Moles/Vol] 12 mmol/LNormal6 - 16 mEq/LRemisol ChemAST [Catalytic activity/Vol]18 [iU]/d Normal5 - 43 Int._Unit/LRemisol ChemBilirubin [Mass/Vol]0.5 mg/dLNormal0.0 - 1.1 mg/dLRemisol ChemCalcium [Mass/Vol]9.8 mg/dLNormal8.9 - 11.1 mg/dLRemisol Chem Chloride [Moles/Vol]100 mmol/CAwe181 - 111 mmol/LRemisol ChemCholesterol [Mass/Vol]163 mg/bVZkwpui982 - 200 mg/dLRemisol ChemCholesterol in HDL [Mass/Vol]47 mg/dLInvalid Interpretation CodeRemisol ChemComment on above:Result Comment: '>= 60 LOW RISK' '<= 40 HIGH RISK'Cholesterol in LDL [Mass/Vol]97 mg/dLNormal<=129mg/dLRemisol ChemCholesterol in VLDL [Mass/Vol]42 mg/dLHigh7 - 40 mg/dLRemisol ChemCO2 [Moles/Vol]27 mmol/SBxmvul38 - 31 mmol/LRemisol ChemCobalamin (Vitamin B12) [Mass/Vol]191 pg/lNUodzem06 - 1500 pg/mLRemisol ChemCreatinine [Mass/Vol]0.7 mg/dLNormal0.5 - 1.3 mg/dLRemisol MwnqiKWB96 mL/min/1.73 o9Gozbak>=59mL/min/1.73 v9Xioqzzw ChemGlobulin (S) [Mass/Vol]3.2 g/dLNormal1.4 - 4.0 gm/dLRemisol Chem Glucose [Mass/Vol]88 mg/eDWafskc93 - 199 mg/dLRemisol ChemPotassium [Moles/Vol] 4.3 mmol/LNormal3.5 - 5.3 mmol/LRemisol ChemProtein [Mass/Vol]7.5 g/dLNormal6.0 - 7.8 gm/dLRemisol ChemSodium [Moles/Vol]135 mmol/FTbxbbm875 - 145 mmol/LRemisol ChemTriglyceride [Mass/Vol]208 mg/dLHigh<=149mg/dLRemisol ChemUrea nitrogen [Mass/Vol]14 mg/dLNormal5 - 21 mg/dLRemisol ChemUrea nitrogen/Creatinine [Mass ratio]20 mg/zvZmxxom90 - 20Remisol ChemCHEMISTRYOrdered By: Alfredo Africagustavo on 55-07-1612Cvhfwikjejk peptide B (Bld) [Mass/Vol]39 pg/mLNormal5 - 80 pg/mLSOUTHWESTERN MEDICAL [facility] MarychuyPon 50-26-3253Ljtppae [Mass/Vol]4.3 g/dLNormal3.3-5.0[facility] CenterComment on above:Performed By: #### [id number] #### [facility] [address], [place] [address]Nomuzuf/Globulin (S) [Mass conc ratio]1.3Enhayw4.1-2.2FWilson Memorial HospitalComment on above:Performed By: #### [id number] #### [facility] [address], [place] [address]MKR [Catalytic activity/Vol]66 Int._Unit/BXqghqp88-86OgtdzgMain Campus Medical CenterComment on above:Performed By: #### [id number] #### [facility] [address], [place] [address]UHX No additional P-5'-P [Catalytic activity/Vol]23 Int._Unit/L Normal6-46[facility] Medical CenterComment on above:Performed By: #### [id number] #### [facility] [address], [place] [address]Lojwc gap [Moles/Vol]12 mmol/LNormal6-16[facility] Medical CenterComment on above:Performed By: #### [id number] #### [facility] [address], [place] [address]UDA [Catalytic activity/Vol]18 Int._Unit/LNormal5-43[facility] Medical CenterComment on above:Performed By: #### [id number] #### [facility] [address], [place] [address]Typglamdd [Mass/Vol]0.5 mg/dLNormal0.0-1.1FWilson Memorial HospitalComment on above:Performed By: #### [id number] #### [facility] [address], [place] [address]Nlbokdi [Mass/Vol]9.8 mg/dLNormal8.9-11.1FWilson Memorial HospitalComment on above:Performed By: #### [id number] #### [facility] [address], [place] [address]Himbeloy [Moles/Vol]100 mmol/BFdr592-436GlbcqgMain Campus Medical CenterComment on above:Performed By: #### [id number] #### [facility] [address], [place] [address]GR0 [Moles/Vol]27 mmol/ISywaqm13-07LaiqlnMain Campus Medical Center Comment on above:Performed By: #### [id number] #### [facility] [address], [place] [address]Ozxtsrnina [Mass/Vol]0.7 mg/dLNormal0.5-1.3FWilson Memorial HospitalComment on above:Performed By: #### [id number] #### [facility] [address], [place] [address]Baqxkdes (S) [Mass/Vol]3.2 g/dLNormal1.4-4.0[facility] CenterComment on above:Performed By: #### [id number] #### [facility] [address], [place] [address]Rgssdkg [Mass/Vol]88 mg/vXVvzobt99-460AxgmyoMain Campus Medical CenterComment on above:Performed By: #### [id number] #### [facility] [address], [place] [address]Mtukgyagq [Moles/Vol]4.3 mmol/LNormal3.5-5.3FWilson Memorial HospitalComment on above:Performed By: #### [id number] #### [facility] [address], [place] [address]Xjukeec [Mass/Vol]7.5 g/dLNormal6.0-7.8[facility] CenterComment on above:Performed By: #### [id number] #### [facility] [address], [place] [address]Wnviua [Moles/Vol]135 mmol/YEirtmb235-207ClvyetMain Campus Medical CenterComment on above:Performed By: #### [id number] #### [facility] [address], [place] [address]Kksi nitrogen [Mass/Vol]14 mg/dLNormal5-21[facility] CenterComment on above:Performed By: #### [id number] #### [facility] [address], [place] [address]Pzxj nitrogen/Creatinine [Mass ratio]20 No QezqtLfbzhz22-68 [facility] CenterComment on above:Performed By: #### [id number] #### [facility] [address], [place] [address]BBNYTKKMRQNvrnbbs By: SYSTEM SYSTEM on 67-98-7591Fzfrymeno/100 WBC (Bld)0.7 %Normal0.0 - 2.0 %Remisol HemeBasophils/Leukocytes Auto (Bld) [Pure # fraction]0.0 E9/LNormal0.0 - 0.2 E9/LRemisol HemeEosinophils (Bld) [#/Vol]0.1 E9/LNormal0.0 - 0.5 E9/LRemisol HemeEosinophils/100 WBC (Bld)1.1 %Normal0.0 - 8.0 %Remisol HemeErythrocyte distribution width (RBC) [Ratio]15.5 %High10.9 - 14.2 %Remisol HemeHematocrit (Bld) [Volume fraction]41.1 %Uafypf59.0 - 46.0 % Remisol HemeHemoglobin (Bld) [Mass/Vol]14.2 g/mJBrkrdt10.0 - 16.0 gm/dLRemisol HemeLymphocytes (Bld) [#/Vol]1.2 E9/LNormal1.0 - 4.0 E9/LRemisol Heme Lymphocytes/100 WBC (Bld)18.3 %Mrhrqd34.0 - 50.0 %Remisol HemeMCH (RBC) [Entitic mass]32.3 msSztgrt96.0 - 34.0 pgRemisol HemeMCHC (RBC) [Mass/Vol]34.5 g/dL Gnbyvw19.4 - 36.0 gm/dLRemisol HemeMCV (RBC) [Entitic vol]93.7 rGTfqaqf89.0 - 100.0 fLRemisol HemeMonocytes (Bld) [#/Vol]0.4 E9/LNormal0.2 - 1.0 E9/LRemisol HemeMonocytes/100 WBC (Bld)5.4 %Normal4.0 - 14.0 %Remisol HemeNeutrophils (Bld) [#/Vol]4.8 E9/LNormal2.0 - 7.5 E9/LRemisol HemeNeutrophils/100 WBC (Bld)74.5 % Zneril30.0 - 75.0 %Remisol HemePlatelet mean volume (Bld) [Entitic vol]8.3 fL Normal6.4 - 10.8 fLRemisol HemePlatelets (Bld) [#/Vol]239.0 E9/HIgnsgm891.0 - 500.0 E9/LRemisol HemeRBC (Bld) [#/Vol]4.4 E12/LNormal4.3 - 5.9 E12/LRemisol HemeWBC corrected for nucl RBC Auto (Bld) [#/Vol]6.5 E9/LNormal4.0 - 11.0 E9/L Remisol HemeLipid Panelon 26-61-9118Ttionicwffq [Mass/Vol]163 mg/zPPmnlgw122-603 [facility] CenterComment on above:Performed By: #### [id number] #### [facility] [address] [place] [address]Pgxlgidibhf in HDL [Mass/Vol]47 mg/dLInvalid Interpretation CodeMain Campus Medical CenterComment on above:Result Comment: '>= 60 LOW RISK' '<= 40 HIGH RISK'Performed By: #### [id number] #### [facility] [address], [place] [address]Xppvntwetqh in LDL [Mass/Vol]97 mg/dLNormal<=129[facility] Medical CenterComment on above:Performed By: #### [id number] #### [facility] [address], [place] [address]Dgqpmilbzro in VLDL [Mass/Vol]42 mg/dLHigh7-40[facility] Medical CenterComment on above:Performed By: #### [id number] #### [facility] [address], [place] [address]Uppvxrhhxfau [Mass/Vol]208 mg/dLHigh<=149[facility] Medical CenterComment on above:Performed By: #### [id number] #### [facility] [address], [place] [address]Yte B12on 77-80-1840Jhjmqirup (Vitamin B12) [Mass/Vol]191 pg/mL Ningke15-9405TzsqknMain Campus Medical CenterComment on above:Performed By: #### [id number] #### [facility] [address], [place] [address]iTRBik 32-42-7440gGTT94 mL/min/1.73 m8Fqepls>=59Main Campus Medical CenterComment on above:Performed By: #### [id number] #### [facility] [address], [place] [address]Yqpduh Medicine Office/Clinic Noteon 82-79-5199Mxuvxk Medicine Office/Clinic NoteFaspaulding rehabilitation hospital Medicine Office/Clinic Note HPI Staff Stomach pain: [...] the cramping. Did encouraged to follow-up with washroom operator if no improvement. 2. Alcohol problem [...] Nigel SMITH, Paris ESPINO In [address] [place] [phone] Additional Instructions: chronic care Patient Education Alcohol [...] tags, multiple acquired Smoker (more content not included)...[facility] HospitalComment on above: Result Comment: Electronically Signed By: Nigel SMITH, DARLEEN-Paris VILLATORO\.br\Date and Time Signed: 07/12/24 20:01 ESTAmbulatory Visit Summaryon [id number] Visit SummaryAmbulatory Visit Summary CARMEN BLEDSOE :1960 Visit Date:07/11/2024 Ambulatory Visit Instructions Your Diagnosis Diarrhea Alcohol problem drinking Morbid (severe) obesity due to excess calories BMI 50.0-59.9, adult Immunization due Your Care Team Attending Physician - Nigel SMITH, SHIPPING AND RECEIVING WEIGHER-Paris VILLATORO Primary Care Physician - Nigel SMITH, SHIPPING AND RECEIVING WEIGHER-Paris VILLATORO This Is Your Medications List dicyclomine [...] Appointments Tuesday 11:00 AM EST With: Where: [facility] [address] [place] [address]- Tuesday 12:00 PM EST With: Nigel SMITH, DARLEEN-Paris VILLATORO Where: [facility] [address] [place] [address]- Tuesday 1:00 PM EST With: Nigel SMITH, DARLEEN-Paris VILLATORO Where: [facility] [address] [place] [address]- Tuesday 11:00 AM EST With: Where: [facility] Tuesday 11:00 AM EDT With: Rick Hernandez PA-C Where: [facility] You Need to Schedule the Following Appointments Follow Up with nurse visit When: Within 2 to 3 days Comments: fasting labs Where: Follow Up with Nigel SMITH, DARLEEN-IRVING, Paris Hamilton When: In 1 week Comments: chronic care Where: [address] [place] [phone] You Need to Complete the Following B-Type [...] day as needed for Pain Pickup at [facility] #[id number] Unchanged albuterol (albuterol 0.083% Inh Rochelle 3 mL) 3 Shanta (more content not included)...[facility] HospitalAmbulatory Visit Summaryon 96-24-0108Ojpabgfkez Visit SummaryAmbulatory Visit Summary CARMEN BLEDSOE :1960 Visit Date:06/05/2024 Ambulatory Visit Instructions Your Diagnosis Benign hypertension Mixed hyperlipidemia Peripheral edema Your Care Team Attending Physician - David LEONARD, Rick Gipson Primary Care Physician - Nigel MSN, SHIPPING AND RECEIVING WEIGHER-SHOE COVERER, Paris Hamilton Referring Physician - NONE, XXXX [...] Tuesday 1:00 PM EST With: Nigel MSN, SHIPPING AND RECEIVING WEIGHER-SHOE COVERER, Paris Hamilton Where: [facility] [address] [place] [address]- Tuesday 11:00 AM EST With: Where: [facility] Tuesday 11:00 AM EDT With: David LEONARD, Rick Gipson Where: [facility] Medications What How Much When Why Instructions [...] for. Alcohol problem drin (more content not included)...[facility] HospitalHeart and Vascular Office/Clinic Noteon 66-48-5477Gcbop and Vascular Office/Clinic NoteHeart and Vascular Office/Clinic [...] Daily, # 90 tab(s), Refills(s) 1, Pharmacy: [facility] #[id number], 168, cm, 06/05/24 13:03:00 EST, Height/Length Dosing, 145.9, kg, 06/05/24 13:03:00 EST, Weight Dosing 2. Mixed hyperlipidemia (E78.2: Mixed hyperlipidemia) Patient is currently taking rosuvastatin 40 mg daily for HLD. Continue with current medication Ordered: rosuvastatin, 40 mg = 1 tab(s), Oral, Daily, # 90 tab(s), Refills(s) 3, Pharmacy: [facility] #[id number], 168, cm, 06/05/24 13:03:00 EST, Height/Length Dosing, [...] mg daily, spironolactone 25 mg daily, potassium odcmfcux82 mEq daily. Since patient has been doing well and no swelling, suggest she continue with current medication. Patient most recent echo from 11/2023 showed normal EF. Ordered: furosemide, 40 mg = 1 tab(s), Oral, Daily, # 90 tab(s), Refills(s) 1, Pharmacy: [facility] #[id number], 168, cm, 06/05/24 13:03:00 EST, Height/Length Dosing, 145.9, kg, 06/05/24 13:03:00 EST, Weight Dosing potassium chloride, 20 mEq = 1 tab(s), Oral, Daily, Take with Lasix, # 90 tab(s), Refills(s) 1, Pharmacy: [facility] #[id number], 168, cm, 06/05/24 13:03:00 EST, Height/Length Dosing, 145.9, kg,06/05/24 13:03:00 EST, Weight Dosing Follow-up with me in 6 months or sooner if needed Portions of this record may have been created with voice recognition artificial intelligence software, specifically [employer], [employer] and or [employer]. Substitutions may have occurred due to the inherent limitations of voice recognition and artificial intelligence software. Follow-up No qualifying data available Problem List/Past Medical History Ongoing Alcohol problem drinking Benign hypertension Bilateral hip pain Bilateral leg edema BMI 45.0-49.9, adult (more content not included)...[facility] HospitalComment on above: Result Comment: Electronically Signed By: David LEONARD, Rick Gipson\.br\Date and Time Signed: 06/05/24 13:24 ESTSym[facility] Office/Clinic Noteon [id number] Medicine Office/Clinic NoteFami Medicine Office/Clinic Note Chief [...] following symptoms? Chest Pain? no Palpitations? no CARMOAN/SOB? no Headache? no Peripheral Edema? no Light [...] 2019 DEXA: NA Labs: 08/10/2023 at [facility] Diabetes/ prediabetes: Eye exam: few years ago, had cataract surgery Foot exam: 08/10/2023 done by Ladonna VILLATORO A1c: Hgb A1C %: 6.3 % High (08/20/22 15:02:00) Smokers/ former smokers: Low dose lung CT: _ List of Providers: Supervisor [place]: Dr Ramirez Visual Effects Editor: Dr Phillip Orthopaedics: Dr Martinez LABS Cr/eGFR: [...] mcg/mL (08/20/22 15:02:00) . Future Appointments [facility] Doc Appt. Date: 02/22/2024 1:20 PM Scheduled Provider: Paris Macias [address] [place], [address] Phone: [phone] Fax: [phone] [address], [place], [phone] Phone: -- Fax: -- [facility] Appt. Date: 06/05/2024 1:00 PM Scheduled Provider: Adam SAMPSON, Alirio Hooper [address] [place] [address], [address] Fax: [phone] [address] [place] [address], [address] Phone: -- Fax: -- [address] [place] [address], [address] Phone: -- Fax: -- [facility] Appt. Date: 08/31/2024 11:00 AM Scheduled Provider: LADY [address] [place], [phone] Fax: -- She reports feeling well with [...] last HbA1c was 5.4% when checked at [facility]. She has discontinued her trazodone for sleep but continues to use a CPAP machine. She has already had a colonoscopy, and there is another scheduled in 3 months. Her last mammogram was (more content not included)...[facility] HospitalComment on above:Result Comment: Electronically Signed By: SRINIVAS Pereyra Tammy L.\.br\Date and Time Signed: 02/23/24 15:15 EDT\.br\Electronically Co-Signed By: MEGHAN KRAUSE\.br\Date and Time Co-Signed: 02/22/24 16:47 EDTAmbulatory Visit Summaryon 24-09-4170Cmpptmtnzu Visit Summary Ambulatory Visit Summary CARMEN BLEDSOE [...] Adam SAMPSON, Alirio Hooper Where: [facility] Tuesday 1:00 PM EST With: Nigel SMITH, Paris ESPINO Where: [address] [address]- Tuesday 11:00 AM EST With: Where: [facility] You Need to Schedule the Following Appointments Follow Up with Nigel SMITH, Paris ESPINO When: In 6 months Comments: chronic care Where: [address] [place] [phone] Medications What How Much When Why Instructions Changed aripiprazole (Abilify 5 mg Tab) 1 Tablets By Mouth Every day Changed dulaglutide (Trulicity Pen 3 mg/ 0.5 mL subcutaneous solution) 3 Milligram Subcutaneous Every week Type 2 diabetes mellitus with morbid obesity Pickup at [facility] #[id number] Unchanged albuterol (albuterol 0.083% Inh Rochelle 3 [...] concerns Unchanged Misc Prescription (more content not included)...[facility] HospitalHeart and Vascular Office/Clinic Noteon 57-95-7436Eyxal and Vascular Office/Clinic NoteHeart and Vascular Office/Clinic [...] after patient or guardian consented to allow [employer] to record this visit. BUD aviation technical systems specialist and provider reviewed before signing. BUD: Tyra Manatad/pasted by: Josse Nava Portions of this record may have been created with voice recognition artificial intelligence software, specifically [employer], [employer] and or [employer]. Substitutions may have occurred due to the [...] 1 refills furosemide 4 (more content not included)...[facility] Comment on above:Result Comment: Electronically Signed By: Adam SAMPSON, Alirio Hooper\.br\Date and Time Signed: 01/28/24 09:35 EDT\.br\Electronically Co- Signed By: Josse Nava\.br\Date and Time Co-Signed: 12/06/23 16:45 EDT Consenton [id number] [facility] HospitalDischarge Instructionson [id number] [id number]#1.00TIFFNormWestern Reserve HospitalMain OR Intraoperative Recordon [id number] OR Intraoperative RecordIntraOp Document Type FT Summary Primary Physician: Walker Phillip MD Finalized Date/Time: 12/26/23 11:06:58 Pt. Name: CARMEN BLEDSOE/Sex: 1960 Female Med Rec #: [id number] Physician: Walker Phillip MD Financial #: [id number] Pt. Type: O Room/Bed: / Admit/Disch: 12/23/23 [...] Lainez RN, Ray Graham Role Performed Anesthesiologist Drum Reel Cutter - Primary Staff - Other Senior Water Resources Engineer Time In 12/23/23 12:15:00 12/23/23 12:15:00 12/23/23 [...] and tissue Entry 1 Skin Integrity Intact, [place], Warm, and Skin Abnormality No Dry Outcomes Met? Yes Last Modified By: Felicia Lainez RN 12/23/23 12:25:30 Post-Care Text: The patient is free from signs and symptoms of injury caused by extraneous objects Patient Positioning FT Pre-Care Text: Identifies physical alterations that require additional precautions for procedure-specific posit (more content not included)...NormalMain Campus Medical CenterConsent for Treatmenton 74-80-5732Ckyvcna for Treatment [id number]#1.00TIFFNormalMain Campus Medical CenterDischarge Instructionson 93-89-8672Sgzdhqfis Instructions LADICARMEN :1960 Visit Date:12/23/2023 Inpatient Discharge [...] EDT With: Marjan SAMPSON, Walker Pritchett Where: [facility] [address] [place] [address]- \.br\ Tuesday 1:00 PM EST \.br\ With:Adam SAMPSON, Alirio Hooper\.br\ Where: [facility]\.br\ New Follow Up Appointments after Discharge\.br\ Follow Up with Marjan SAMPSON, Walker Pritchett, GAS, MED When: \.br\ Comments:\.br\ Call Office in 2 weeks for results or follow-up Appt. \.br\ Where:\.br\ [address], [address] [place] [address]\.br\ [place] [address]-\.br\ [phone]\.br\ Medications\.br\ What How Much When WhyInstructions Next [...] Chest discomfort: Most heart attacks involve discomfFisher [facility] Maryland Hospital CenterComment on above:Result Comment: Electronically Signed By: Serge MURRAY, Anais\.sonia\Date and Time Signed: 12/23/23 13:18EDTEndoscopic Procedure Report - Otheron 65-06-5058Mgplxkvxvp Procedure Report - OtherPatient: CARMEN BLEDSOE Age: 63 years Sex: Female : 1960 Associated Diagnoses: None Author: Walker Phillip MD Pre-Procedure Procedure Date 12/23/2023 12:56:00 . Procedure Type: Colonoscopy with removal of tumor(s), polyp(s), or other lesion(s) by cold snare technique. Procedure provider Performed by Walker Phillip MD. Current history and physical Reviewed. Colonoscopy ([id number]) on 03/17/2020 at 59 Years. L foot bunion/reconstruction. Eye/lens implant bilat. Knee replacement ([id number]).. Past Medical History Resolved Tubular adenoma of colon ([id number]): Resolved. COPD exacerbation (913082106): Resolved.. Family History Liver cancer Father () Hypertension Sister Brother Mother () Stomach cancer Mother () . Procedure History Colonoscopy ([id number]) on 03/17/2020 at 59 Years. L foot bunion/reconstruction. Eye/lens implant bilat. Knee replacement ([id number]).. Colorectal neoplasm risk assessment High risk Previous [...] 90 tab(s), Refills(s) 3, Pharmacy: [facility] #[id number], 167, cm, 01/11/23 11:15:00 EDT, Height/Length Dosing, 138, kg, 01/11/23 11:15:00 EDT, Weight Dosing Alcohol wipes: Alcohol wipes, See Instructions, 100 EA, 3, Use to check BS daily dx E11.9, [facility] #37701, Supply, 163, cm, 12/30/21 11:09:00 EDT, Height/Length Dosing, 154, kg, 12/30/21 11:09:00 EDT, Weight Dosing Crestor 40 mg Tab: 40 mg = 1 tab(s), Oral, Daily, # 90 tab(s), Refills(s) 3, Pharmacy: [facility] #[id number], 167, cm, 05/09/23 8:15:00 EST, Height/Length Dosing, 145.6, kg, 05/09/23 8:15:00 EST, Weight Dosing FLUoxetine 20 mg Cap: 40 mg = 2 cap(s), Oral, Daily, # 180 cap(s), Refills(s) 1, Pharmacy: [facility]#29336, 167, cm, 08/10/23 14:24:00 EST, Height/Length Dosing, 151.4, kg, 08/10/23 14:24:00 EST, Weight Dosing Glucometer: Glucometer, See Instructions, 1 EA, 0, Glucometer to test BS TID and PRN dx E11.9, [facility], Supply, 170, cm, 05/27/21 8:31:00 EST, Height/Length Dosing, 157.8, kg, 05/27/21 8:31:00 EST, Weight Dosing Jardiance 10 mg oral tablet: 10 mg, Oral, Daily, # 90 tab(s), Refills(s) 2, Pharmacy: [facility] #[id number], 167, cm, 08/10/23 14:24:00 EST, Height/Length Dosing, 151.4, kg, 08/10/23 14:24:00 EST, Weight Dosing Lancets: Lancets, See Instructions, 100 EA, 3, Use to check BS daily dx E11.9, [facility] #56966, Supply, 163, cm, 12/30/21 11:09:00 EDT, Height/Length Dosing, 154, kg, 12/30/21 11:09:00 EDT, Weight Dosing Nebulizer Machine: Nebulizer Machine, See Instructions, 1 EA, 0, Nebulizer Machine, [facility] #43322, Supply, 168, cm, 10/11/23 14:32:00 EDT, Height/Length Dosing, 160.2, kg, 10/11/23 14:32:00 EDT, Weight Dosing Nebulizer Tubing and Mouthpiece Kit: Nebulizer Tubing and Mouthpiece Kit, See Instructions, 1 kit(s), 0, Nebulizer Tubing and Mouthpiece Kit, [facility] #62138, Supply, 168, cm, 10/11/23 14:32:00 EDT, Height/Length Dosing, 160.2, kg, 10/11/23 14:32:00 EDT, Weight Dosing Pantoprazole [address] Tab: 40 mg = 1 tab(s), Oral, Daily, # 90 tab(s), Refills(s) 3, Pharmacy: [facility] #[id number], 167, cm, 01/11/23 11:15:00 EDT, Height/Length Dosing, 138, kg, 01/11/23 11:15:00 EDT, Weight Dosing Singulair 10 mg Tab: 10 mg = 1 tab(s), Oral, qPM, # 30 tab(s), Refills(s) 2, [address] [facility], 170, cm, 10/16/19 9:09:00 EDT, Height/Length Measured, 154.3, kg, 10/16/19 9:09:00 EDT, Weight Measured Spiriva Respimat 1.25 mcg/inh inhalation aerosol: 2 puff(s), Inhalation, Daily, 3 EA, Refill(s) 3, [facility], 163, cm, 12/30/21 11:09:00 EDT, Height/Length Dosing, 154, kg, 12/30/21 11:09:00 EDT, Weight Dosing Test Strips: Test Strips, See Instructions, 100 EA, 3, Use to test BS daily, [facility]00807, Supply, 167.5, cm, 10/18/22 13:30:00 EDT, Height/Length Dosing, 147, kg, 10/18/22 13:30:00 EDT, Weight Dosing Trulicity Pen 1.5 mg/0.5 mL subcutaneous solution: 1.5 mg, SubCutaneous, qWeek, # 4 EA, Refills(s) 0, [facility] #[id number], 168, cm, 12/06/23 14:55:00 EDT, Height/Length Dosing, 139, kg, 12/06/23 14:55:00 EDT, Weight Dosing Ventolin HFA 90 mcg/inh Aerosol-Adpt: 2 (more content not included)...Normal [facility] Campus Medical CenterComment on above:Result Comment: Electronically Signed By: Walker Phillip MD\.br\Date and Time Signed: 12/23/23 12:58 EDTMain OR PACU I Recordon 10-15-4894Wlum OR PACU I RecordPACU Phase I Document Type FT Summary Primary Physician: Walker Phillip MD Finalized Date/Time: 12/23/23 13:44:10 Pt. Name: CARMEN BLEDSOE/Sex: 1960 Female Med Rec #: [id number] Physician: Walker Phillip MD Financial #: [id number] Pt. Type: O Room/Bed: / Admit/Disch: 12/23/23 [...] Signatures Signed By: Anais Valentine RN 12/23/23 13:44[facility] HospitalMain OR Preoperative Recordon [id number] OR Preoperative RecordHolding Area Document Type FT Summary Primary Physician: Walker Phillip MD Finalized Date/Time: 12/23/23 10:57:22 Pt. Name: CARMEN BLEDSOE/Sex: 1960 Female Med Rec #: [id number] Physician: Walker Phillip MD Financial #: [id number] Pt. Type: O Room/Bed: / Admit/Disch: 12/23/23 [...] Signatures Signed By: Jannet Adorno RN 12/23/23 10:57NoDayton Osteopathic HospitalMonitor Recordon [id number] Record [id number] Bethesda Butler HospitalNursing Narrative Noteon 90-27-5925Kiepgtx Narrative NoteUnable to obtain accurate testing after attempt x2 RN d/t pt body habitus.[facility] HospitalPatient Education - Texton 94-97-6105Watqcoq Education - Text Colonoscopy Care After Surgery [...] is severe or gets worse throughout the day.[facility] HospitalProgress Note-Physicianon 12-23-2023 Progress Note-PhysicianPatient: CARMEN BLEDSOE Age: 63 years Sex: Female : 1960 Associated Diagnoses: None Author: Zaid Benz MD Postoperative Information Postoperative disposition: Postoperative disposition: To PACU. Optimetrix number: Optimetrix number [id number]. Anesthetic utilized: General. Health Status Allergies: Allergic [...] Discharge when meets criteria ( To home ).[facility] HospitalComment on above:Result Comment: Electronically Signed By: Zaid [...] Daily, # 90 tab(s), Refills(s) 3, [facility]: [facility][id number], 167, cm, 01/11/23 11:15:00 EDT, Height/Length Dosing, 138, kg, 01/11/23 11:15:00 EDT, Weight Dosing Alcohol wipes: Alcohol wipes, See Instructions, 100 EA, 3, Use to check BS daily dx E11.9, [facility] #17155, Supply, 163, cm, 12/30/21 11:09:00 EDT, Height/Length Dosing, 154, kg, 12/30/21 11:09:00 EDT, Weight Dosing Crestor 40 mg Tab: 40 mg = 1 tab(s), Oral, Daily, # 90 tab(s), Refills(s) 3, [facility]028[facility], 167, cm, 05/09/23 8:15:00 EST, Height/Length Dosing, 145.6, kg, 05/09/23 8:15:00 EST, Weight Dosing FLUoxetine 20 mg Cap: 40 mg = 2 cap(s), Oral, Daily, # 180 cap(s), Refills(s) 1, [facility]15907, 167, cm, 08/10/23 14:24:00 EST, Height/Length Dosing, 151.4, kg, 08/10/23 14:24:00 EST, Weight Dosing Glucometer: Glucometer, See Instructions, 1 EA, 0, Glucometer to test BS TID and PRN dx E11.9, [facility], Supply, 170, cm, 05/27/21 8:31:00 EST, Height/Length Dosing, 157.8, kg, 05/27/21 8:31:00 EST, Weight Dosing Jardiance 10 mg oral tablet: 10 mg, Oral, Daily, # 90 tab(s), Refills(s) 2, Pharmacy: [facility] #83833, 167, cm, 08/10/23 14:24:00 EST, Height/Length Dosing, 151.4, kg, 08/10/23 14:24:00 EST, Weight Dosing Lancets: Lancets, See Instructions, 100 EA, 3, Use to check BS daily dx E11.9, [facility] #05830, Supply, 163, cm, 12/30/21 11:09:00 EDT, Height/Length Dosing, 154, kg, 12/30/21 11:09:00 EDT, Weight Dosing Nebulizer Machine: Nebulizer Machine, See Instructions, 1 EA, 0, Nebulizer Machine, [facility] #70721, Supply, 168, cm, 10/11/23 14:32:00 EDT, Height/Length Dosing, 160.2, kg, 10/11/23 14:32:00 EDT, Weight Dosing Nebulizer Tubing and Mouthpiece Kit: Nebulizer Tubing and Mouthpiece Kit, See Instructions, 1 kit(s), 0, Nebulizer Tubing and Mouthpiece Kit, [facility] #73748, Supply, 168, cm, 10/11/23 14:32:00 EDT, Height/Length Dosing, 160.2, kg, 10/11/23 14:32:00 EDT, Weight Dosing Pantoprazole [address] Tab: 40 mg = 1 tab(s), Oral, Daily, # 90 tab(s), Refills(s) 3, Pharmacy: [facility] #15221, 167, cm, 01/11/23 11:15:00 EDT, Height/Length Dosing, 138, kg, 01/11/23 11:15:00 EDT, Weight Dosing Singulair 10 mg Tab: 10 mg = 1 tab(s), Oral, qPM, # 30 tab(s), Refills(s) 2, Pharmacy: [facility], 170, cm, 10/16/19 9:09:00 EDT, Height/Length Measured, 154.3, kg, 10/16/19 9:09:00 EDT, Weight Measured Spiriva Respimat 1.25 mcg/inh inhalation aerosol: 2 puff(s), Inhalation, Daily, 3 EA, Refill(s) 3, [facility], 163, cm, 12/30/21 11:09:00 EDT, Height/Length Dosing, 154, kg, 12/30/21 11:09:00 EDT, Weight Dosing Test Strips: Test Strips, See Instructions, 100 EA, 3, Use to test BS daily, [facility] #03984, Supply, 167.5, cm, 10/18/22 13:30:00 EDT, Height/Length Dosing, 147, kg, 10/18/22 13:30:00 EDT, Weight Dosing Trulicity Pen 1.5 mg/0.5 mL subcutaneous solution: 1.5 mg, SubCutaneous, qWeek, # 4 EA, Refills(s) 0, Pharmacy: [facility] #47857, 168, cm, 12/06/23 14:55:00 EDT, Height/Length Dosing, 139, kg, 12/06/23 14:55:00 EDT, Weight Dosing Ventolin HFA 90 mcg/inh Aerosol-Adpt: 2 puff(s), Inhalation, q6hr for wheezing, 1 EA, Refill(s) 1, [facility] #95101, 167, cm, 09/29/22 11:37:00 EDT, Height/Length Dosing, 149.2, kg, 09/29/22 11:37:00 EDT, Weight Dosing Vitamin D3 5000 intl units oral capsule: 5,000 International_Unit = 1 cap(s), Oral, Daily, with food, # 100 cap(s), Refills(s) 1, Pharmacy: [facility] #32281, 170, cm, 10/13/22 9:06:00 EDT, Height/Length Dosing, 149.2, kg, 09/29/22 11:37:00 EDT, Weight Dosing albuterol 0.083% Inh Rochelle 3 mL: 2.5 mg, 3 mL, Inhalation, q6hr Shortness of breath or wheezing, 100 EA, Refill(s) 1, [facility] #70624, 168, cm, 10/11/23 14:32: (more content not included)...[facility] HospitalComment on above:Result Comment: Electronically Signed By: Demar SAMPSON, Zaid Hooper\.br\Date and Time Signed: 12/23/23 11:24 EDTRAD - MRI Reporton [id number] - MRI Report [id number]#1.00TIFFNormWestern Reserve HospitalMRI LUMBAR SPINE WO CONTRASTon 09-18-2000XKG LUMBAR SPINE WO CONTRAST HISTORY: Low back [...] Signed by: Dwayne Ruffin MD 12/22/23 Final resultNormalMerEllis HospitalInsurance Correspondenceon 12-13-2023 Insurance [id number] Magana [facility] CenterPhysician Orderon [id number] Order [id number]#1.00Alvin [facility] Hospital CenterAmbulatory Visit Summaryon [id number] Visit Summary CARMEN BLEDSOE :1960 Visit Date:12/06/2023 Ambulatory Visit Instructions Your Care Team Attending Physician - Adam SAMPSON, Alirio Hooper Primary Care Physician - Nigel MSN, SHIPPING AND RECEIVING WEIGHER-SHOE COVERER, Paris Hamilton Referring Physician - NONE, XXXX [...] Appointments Tuesday 10:30 AM EDT With: Where: [facility] Tuesday 12:00 PM EDT With: Where: [facility] Tuesday 10:45 AM EDT With: Marjan SAMPSON, Walker Pritchett Where: [facility] [address] [place] [address]- \.br\ Tuesday 1:00 PM EST \.br\ With:Adam SAMPSON, Alirio Hooper\.br\ Where: [facility]\.br\ Medications\.br\ What How Much When Why Instructions\.br\ [...] you for choosing us for your care.\.br\ \.br\[facility] Consent for Treatmenton [id number] for Treatment [id number] Campus Medical CenterAmbulatory Visit Summaryon 99-27-0072Sltodxredx Visit Summary CARMEN BLEDSOE :1960 Visit Date:11/25/2023 Ambulatory Visit Instructions Your Diagnosis Benign hypertension Hepatomegaly Type 2 diabetes mellitus with morbid obesity Alcohol problem drinking Class 3 severe obesity due to excess calories with serious comorbidity in adult, Morbid (severe) obesity due to excess calories BMI 50.0-59.9, adult Your Care Team Attending Physician - Nigel MSN, SHIPPING AND RECEIVING WEIGHER-SHOE COVERER, Paris Hamilton Primary Care Physician - Nigel MSN, SHIPPING AND RECEIVING WEIGHER-Paris VILLATORO This Is Your Medications List tramadol [...] SAMPSON, Alirio Hooper Where: [facility] Tuesday 10:30 AM EDT With: Where: [facility] Tuesday 12:00 PM EDT With: Where: [facility] Tuesday 10:45 AM EDT With: Marjan SAMPSON, Walker Pritchett Where: [facility] Digestive [address] [place] [address]- \.br\ You Need to Schedule the Following Appointments\.br\ Follow Up with Nigel SMITH, SHIPPING AND RECEIVING WEIGHER-SHOE COVERER, Paris Hamilton When: In 3 months\.br\ Comments:\.br\ chroniccare\.br\ Where:\.br\ [address]\.br\ [place] [address]\.br\ Medications\.br\ What How Much When Why Instructions\.br\ Changed tramadol (traMADOL 50 mg Tab) 1 Tablets By Mouth Every 6 hours as needed for for pain [id number]\.br\ Unchanged albuterol (albuterol 0.083% InhSol 3 mL) [...] or concerns \.br\ Pharmacy Information\.br\ [id number]: [address] [id number] [phone]\.br\ \.br\ What How Much When Comments\.br\ Stop [...] obese.\.br\ ? \.br\ Are exposed to [facility]Fisher [facility] Medicine Office/Clinic Noteon 29-80-3417Rrxtks Medicine Office/Clinic NoteChief Complaint Here for 1 [...] _ DEXA: _ Labs: 08/10/2023 at [facility] Diabetes/ prediabetes: Eye exam: _ done by _ Foot exam: 08/10/2023 done by Ladonna VILLATORO A1c: Hgb A1C %: 6.3 % High (08/20/22 15:02:00) Smokers/ former smokers: Low dose lung CT: _ List of Providers: Supervisor Tile And Mottle: DR aRmirez Visual Effects Editor: Dr Phillip Orthopaedics: Dr Martinez LABS Cr/eGFR: eGFR: >60 (08/05/2023) Creatinine: 0.6 mg/dL (08/10/2023) A1c: Hgb A1C %: 5.4% (08/10/2023) TSH: TSH: 4.64 mcIU/mL (08/20/22 15:02:00) Vit D: No qualifying data available. LDL: LDL Direct: 67 mg/dL (08/10/2023) Lipids: Chol: 206 mg/dL (08/10/2023) HDL: 95 mg/dL (08/10/2023) LDL Direct: 67 mg/dL (08/10/2023) Microalbumin: U Microalb: >12 mcg/mL (08/10/2023) Future Appointments [facility] Appt. Date: 12/06/2023 3:15 PM Scheduled Provider: Adam SAMPSON, Alirio Hooper [address] [place] [address], [address] Fax: [phone] [address] [place] [address], [address] Phone: -- Fax: -- [address] [place] [address], [address] Phone: -- Fax: -- [facility] Appt. Date: 12/23/2023 10:30 AM Scheduled Provider: ENDO 3 FT Phone: -- Fax: -- [facility] Appt. Date: 12/23/2023 12:00 PM Scheduled Provider: LADY 1 FT Phone: -- Fax: -- [facility] Digestive Health Appt. Date: 01/13/2024 10:45 AM Scheduled Provider: Marjan SAMPSON, Walker Pritchett [address] [place] [address], [address] [facility] [address] [place], [address] Phone: [phone] Fax: [phone] The patient has transitioned to using a [...] past negative relapse experience (more content not included)...[facility] Bethesda Butler HospitalComment on above:Result Comment: Electronically Signed By: Nigel SMITH, Paris ESPINO\.br\Date and Time Signed: 11/25/23 20:36 EDT\.br\Electronically Co-Signed By: Seven Ruelas\.br\Date and Time Co- Signed: 11/25/23 16:37 EDTPatient Educationon 28-20-5164Qnfcdyn Education Hepatomegaly Hepatomegaly is when a person's [...] to follow these instructions. Medicines ? Take gwka-gqt-otwafem and prescription medicines only as told by your health care provider. ? Do not start taking any new medicine unless your health care provider has approved. These pbdhyrzhbfs-hpz-tnabfjd medicines, vitamins, herbs, and supplements. Some of [...] provider. Document Revised: 05/19/2022 Document Reviewed: 05/19/2022 [employer] college internation S.L. Patient Education ? 2022 [employer]. Endocrinology Type 2 Diabetes Mellitus, Self-Care, Adult [...] your blood glucose every (more content not included)...NormalMain Campus Medical CenterBasi Metabolic Profon 29-18-6440Xaeqp gap [Moles/Vol]10 mmol/LNormal9-17[facility] Behavioral HospitalComment on above:Performed By: #### BMP, BNP ####[facility] [address] [place], [place] [address]( [phone] Director: Yury Caba MDBUN/CRE Zpmhi84Ibbrxj3-96Pldlo Willard HospitalComment on above:Performed By: #### BMP, BNP ####[facility] [address] [place], [place] [address] Lab Director: KASH Joshialcium [Mass/Vol]9.2 mg/dLNormal8.6-10.4[facility] Behavioral HospitalComment on above:Performed By: #### BMP, BNP ####[facility] [address] [place] [address] Lab Director: KASH Joshihloride [Moles/Vol]99 mmol/ALkysbg80-142NhaoxGeorgetown Behavioral HospitalComment on above: Performed By: #### BMP, BNP ####[facility] [address] [place] [id number] Lab Director: KASH JoshiO2 [Moles/Vol]24 mmol/VPimskm96-06BekwtGeorgetown Behavioral HospitalComment on above:Performed By: #### BMP, BNP ####[facility] [address] [place] [address]( [phone] Director: KASH Joshireatinine [Mass/Vol]0.7 mg/dLNormal 0.5-0.9[facility] HospitalComment on above:Performed By: #### BMP, BNP ####[facility] [address] [place] [phone] Director: Yury Caba MDGFR/1.73 sq M.predicted among non-blacks MDRD (S/P/Bld) [Vol rate/Area]mL/min/{1.73_m2}Normal>60[facility] Behavioral HospitalComcorewell health gerber hospital on above:Result Comment: These results are [...] renal tubular secretion.Performed By: #### BMP, BNP ####[facility] [address] [place] [phone] Director: Yury Caba MDGlucose [Mass/Vol]107 mg/kUBbsr18-54YfsohFisher-Titus Medical CenterComment on above:Performed By: #### BMP, BNP ####[facility] [address] [place] [address] Lab Director: DEZ Joshiotassium [Moles/Vol]4.7 mmol/LNormal3.7-5.3MFisher-Titus Medical CenterComment on above:Performed By: #### BMP, BNP ####[facility] [address] [place] [address] Lab Director: Yury Caba MDSodium [Moles/Vol]133 mmol/RNdx483-149KrciqGeorgetown Behavioral HospitalComment on above:Performed By: #### BMP, BNP ####[facility] [address] [place] [address] Lab Director: Yury Caba MDUrea nitrogen [Mass/Vol]14 mg/dLNormal8-23[facility] Behavioral HospitalComment on above: Performed By: #### BMP, BNP ####[facility] [address] [place] [address] Lab Director: Yury Caba MDBrain Natri. Peptideon 35-25-4664Dlrjtzdvtuy peptide B (Bld) [Mass/Vol]164 pg/mLNormal<300 Ge[facility] Behavioral HospitalComcorewell health gerber hospital on above:Result Comment: An age-independent cutoff point of 300 pg/ml has a 98% negative predictive value excluding acute heart failure.Performed By: #### BMP, BNP ####[facility] [address] [place] [address] Lab Director: Yury Caba MDOutside Labson 60-31-4027Btrzkoe Labs [id number]#1.00TIFFNoalMain Campus Medical CenterConsent for Treatmenton 77-54-8130Owrsjik for Treatment [id number]#1.00TIFFTriHealth Bethesda Butler HospitalConsent for Procedure/Surgeryon 66-41-1036Lcmfyen for Procedure/Surgery [id number]#1.00TIFFTriHealth Bethesda Butler HospitalFL ARTHR/ASP/INJ MAJOR JT/BURSA RT WO USon 53-31-5525HA ARTHR/ASP/INJ MAJOR JT/BURSA RT WO US Begin Addendum #1 FLUORO DOSE: 84. 497 mGy Reference air kerma (Ka,r) Interpreted by: Casa Minor Jr., MD Signed by: Casa Minor Jr., MD 11/04/23 Edited Result - [facility] ARTHROGRAM RIGHT HIP S AND I on 03-24-7619UX ARTHROGRAM RIGHT HIP S AND I Begin Addendum #1 FLUORO DOSE: 84. 497 mGy Reference air kerma (Ka,r) Interpreted by: Casa Minor Jr., MD Signed by: Casa Minor Jr., MD 11/04/23 Edited Result - [facility] HospitalFL GUIDED NEEDLE PLACEMENTon 02-63-8957JE GUIDED NEEDLE PLACEMENT Begin Addendum #1 FLUORO DOSE: 84. 497 mGy Reference air kerma (Ka,r) Interpreted by: Casa Minor Jr., MD Signed by: Casa Minor Jr., MD 11/04/23 Edited Result - [facility] HospitalAmbulatory Visit Summaryon 87-48-1375Ukhkkgwpfv Visit Summary CARMEN BLEDSOE :1960 Visit Date:11/02/2023 Ambulatory Visit Instructions Your Diagnosis Elevated LFTs Hepatomegaly History of alcohol abuse History of colon polyps Smoker Your Care Team Attending Physician - Marjan SAMPSON, Walker Pritchett Primary Care Physician - Nigel MSN, SHIPPING AND RECEIVING WEIGHER-SHOE COVERER, Paris Hamilton This Is Your Medications List [...] Tuesday 3:00 PM EDT With: Where: FT.CARDIO Doc 2023 3:00 PM EDT With: Where: [facility] Family Medicine WillardInvalid Interpretation [address] [place] [address]- \.br\ Tuesday 3:15 PM EDT \.br\ With:Adam SAMPSON, Alirio Hooper\.br\ Where: [facility] Doc\.br\ Tuesday 10:30AM EDT \.br\ With:\.br\ Where: [facility]\.br\ Tuesday 12:00 PM EDT \.br\ With:\.br\ Where: [facility]\.br\ Tuesday 10:45 AM EDT \.br\ With: Marjan SAMPSON, Walker Pritchett\.br\ Where: [facility] Digestive HealthMain Campus Medical CenterGastroenterology Office/Clinic Noteon 70-15-2909Mtzxdznmchxjgatn Office/Clinic NoteChief Complaint elevated LFT's, hepatomegaly, hx [...] Denies blood thinner use. liver 08/24/23 @ [facility]: IMPRESSION: Hepatomegaly and hepatic steatosis. EGD/Colon 03/17/20 @ [facility]: POSTOPERATIVE DIAGNOSES: 1. Antral gastritis. 2. [...] BIOPSY: TUBULAR ADENOMA. CBC/CMP 08/10/23 @ [facility]: RBC: (L) 3.78 MCV (H) 102.6 [...] Will get chronic liver disease panel Ordered: Cxtgk-2-Sojhwgpdheb KIM w/Reflex if POS Antimitochondrial Antibody, Quantitative Colonoscopy (Hospital Procedure) Comprehensive Metabolic Panel Current tobacco smoker 1034F E&M of New Patient Moderate 45-59 Min 53286 EGD Endoscopy (Hospital Procedure) Ferritin Fibroscan (Hospital [...] E&M of New Patient Moderate 45-59 Min 30240 EGD Endoscopy (Hospital Procedure) 3. 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 History of colon polyps (Z86.010: Personal history of colonic polyps) Had multiple TA's 2020, repeat colonoscopy Ordered: Colonoscopy (Hospital Procedure) E&M of New Patient Moderate 45-59 Min 92021 EGD Endoscopy (Hospital Procedure) 5. Smoker (F17.200: Nicotine dependence, unspecified, uncomplicated) Consulted Ordered: Colonoscopy (Hospital Procedure) E&M of New Patient Moderate 45-59 Min 70799 EGD Endoscopy (Hospital Procedure) Follow-up No qualifying [...] 40 mg Tab, 4 (more content not included)...[facility] Butler HospitalComment on above:Result Comment: Electronically Signed By: Marjan SAMPSON, Walker Pritchett\.br\Date and Time Signed: 11/02/23 11:03 EDTPhysician Orderon 90-77-6649Uvmjltzzu [id number]#1.00TIFF [facility] Butler HospitalFaspaulding rehabilitation hospital Medicine Office/Clinic Noteon 10-27-2023 Family Medicine Office/Clinic [...] dose lung CT: _ List of Providers: Supervisor Tile And Mottle: Dr Ramirez Gastrointestinal: Dr Phillip LABS Cr/eGFR: [...] Microalb: 4.6 mcg/mL (08/20/22 15:02:00) Future Appointments [facility] Digestive Health Appt. Date: 11/02/2023 10:30 AM Scheduled Provider: Marjan SAMPSON, Walker Pritchett [address] [facility], [facility] [address], [address] Phone: [phone] Fax: [phone] [facility] SERGEI Yarbrough Appt. Date: 11/10/2023 3:00 PM Scheduled Provider: SERGEI Yarbrough Nurse Phone: -- Fax: -- [facility] Appt. Date: 12/06/2023 3:15 PM Scheduled Provider: Adam SAMPSON, Alirio Hooper [address] [place], [address] Fax: [phone] She admitted that she relapsed on her [...] weak but declines physical therapy. Sisters questioning [facility] rehab or even an AA meeting, patient declines. States she has gotten rid of all of her alcohol out of her house and she is not hiding any bottles anywhere. She is aware that her drinking is what is put her in the situation she is in now. Does have a appointment with the GI doctor up at [facility] for her hepatomegaly and elevated liver. She [...] Does follow-up with Dr. Ramirez in the Doc office. Has been on her Lasix and [...] to let the office (more content not included)...[facility]hes[facility] Butler HospitalComment on above:Result Comment: Electronically Signed By: SRINIVAS Pereyra Tammy L.\.br\Date and Time Signed: 10/27/23 08:09 EDT\.br\Electronically Co-Signed By: Safia Greenberg\.br\Date and Time Co-Signed: 10/26/23 16:02 EDTAmbulatory Visit Summaryon 64-16-9384Fqjiprzidq Visit Summary CARMEN BLEDSOE :1960 Visit Date:10/26/2023 [...] EDT With: Marjan SAMPSON, Walker Pritchett Where: [facility] Digestive HealthInvalid Interpretation Code [address] [place] [address]- \.br\ Tuesday 2:40 PM EDT \.br\ With:Nigel SMITH, SHIPPING AND RECEIVING WEIGHER-SHOE COVERERParis\.br\ Where: [facility] NorthInsurance Correspondenceon 34-03-3918Weotlwmub Correspondence [id number]#1.00TIFFTriHealth Bethesda Butler HospitalPatient Educationon 63-31-9718Mzsvcfh EducationCardiovascular Heart Failure, Self-Care Heart failure is [...] when you have heart failure Medicines Take igjf-ity-fbaepjh and prescription medicines only as told by [...] date with vaccines. Pneu (more content not included)...[facility] Butler HospitalAmbulatory Visit Summaryon 82-50-7471Ullzvuqwhh Visit Summary CARMEN BLEDSOE :1960 Visit Date:10/25/2023 [...] EDT With: Nigel SMITH, Paris ESPINO Where: [facility] WillardInvalid Interpretation [address] [place] [address] [phone]\.br\ 2023 3:00 PM EDT \.br\ With:\.br\ Where: [facility] NorthConsent for Treatmenton 18-52-9850Ihjhvku for Treatment [id number]#1.00TIFFNormWestern Reserve HospitalHeart and Vascular Office/Clinic Noteon 96-97-1574Hwhna and Vascular Office/Clinic NoteChief Complaint B/L EDEMA History of Present Illness 62-year-old female with history of bilateral lower extremity edema and diastolic heart failure as well as obesity, tobacco smoking, hypertension, hyperlipidemia. Negative stress test last year. Recently was having increased shortness of breath and lower extremity swelling went to [facility] and was told to take extra [...] PRN, 1 refills Vi (more content not included)...[facility] Butler HospitalComment on above:Result Comment: Electronically Signed By: Adam SAMPSON, Alirio Hooper\.br\Date and Time Signed: 10/25/23 15:21 EDTAmbulatory Visit Summaryon 30-61-7620Djjvmmetxb Visit Summary CARMEN BLEDSOE :1960 Visit Date:10/11/2023 Ambulatory Visit Instructions Your Diagnosis Heart failure with preserved ejection fraction Type 2 diabetes mellitus with morbid obesity Benign hypertension Class 3 severe obesity due to excess calories with serious comorbidity in adult BMI 50.0-59.9, adult Your Care Team Attending Physician - Nigel MSN, SHIPPING AND RECEIVING WEIGHER-Paris VILLATORO Primary Care Physician - Nigel MSN, [...] Tuesday 1:20 PM EDT With: Nigel MSN, SHIPPING AND RECEIVING WEIGHER-SHOE COVERER, Paris Hamilton Where: [facility] Medicine [address] [address]- \.br\ You Need to Schedule the Following Appointments\.br\ Follow Up with Nigel SMITH, SHIPPING AND RECEIVING WEIGHER-SHOE COVERER, Paris Hamilton When: In 2 weeks\.br\ Comments:\.br\ chronic care\.br\ Where:\.br\ [facility] [employer]\.br\ [place] [address]\.br\Medications\.br\ What How Much When Why Instructions\.br\ New albuterol (albuterol 0.083% Inh Rochelle 3mL) 3 Milliliter Inhalation Every 6 hours as needed for Shortness of breath or wheezing Refills: 1 Pickup at [facility] #05016\.br\ Changed dulaglutide (Trulicity Pen 1.5 mg/ 0.5 mL subcutaneous solution) 1.5 Milligram Subcutaneous Every week Pickup at [facility] #52586\.br\ Changed spironolactone (spironolactone 25 mg Tab) 1 Tablets By Mouth Every day Duration: 90 Days Pickup at [facility] #45778\.br\Unchanged Misc Prescription (Nebulizer Machine) See instructions Moderate persistent asthma Nebulizer Machine Pickup at [facility] #58979\.br\ Unchanged Misc Prescription (Nebulizer Tubing and Mouthpiece Kit) See instructions Moderate persistent asthma Nebulizer Tubing and Mouthpiece Kit Pickup at [facility] #80540\.br\ Unchanged trazodone (traZODONE 50 mg Tab) 1 Tablets By Mouth Once a day (at bedtime) Pickup at [facility] #81583\.br\ Unchanged albuterol (Ventolin HFA 90 mcg/ inh [...] or concerns \.br\ Pharmacy Information\.br\ [facility] #[id number]: [address] [place], [place] [id number] [phone]\.br\ \.br\ What How Much When Comments\.br\ Stop [...] personalized treatment goals for you. Generally, the [facility] Medicine Office/Clinic Noteon 43-98-3655Suixqb Medicine Office/Clinic NoteChief Complaint Pt presents for [facility] ER F/U 10/06/23 for difficulty breathing. Paula leg swelling HPI Staff ER followup: Hospital: [facility] Visit date:FGDL7T 10/06/23 Symptoms the patient presented with: difficulty breathing Symptom onset/injury onset: Testing Performed: New medications: New specialist involved Therapy ordered: Next appointment date: Current concerns: Pt C/O paula leg swelling. History of Present Illness a 62-year-old female presenting today for an ER visit due to difficulty breathing. She is accompanied by her sister. She was recently at [facility], ER for difficulty breathing. She was [...] a referral from me to gastrointestinal at [facility] for further evaluation of her hepatomegaly [...] heartfailure) The patient was recently admitted to [facility] on 10/06/2023 due to respiratory distress, which led to a diagnosis of heart failure. She exhausted her spironolactone supply and was subsequently advised to double her Lasix dosage, with the final dose scheduled for today. We will send her a refill for her spironolactone. She has an appointment scheduled with her forestry technician, Dr. Ramirez, later this month. Given her recent weight gain, it is evident that fluid accumulation results in a resurgence of her condition. She is also scheduled to consult with a washroom operator for an enlarged liver. I am [...] -Take medications as pres (more content not included)...[facility] Butler HospitalComment on above:Result Comment: Electronically Signed By: Nigel SMITH, SHIPPING AND RECEIVING WEIGHER-SHOE COVERER, Paris Hamilton\.br\Date and Time Signed: 10/11/23 20:33 EDT\.br\Electronically Co-Signed By: Safia Greenberg\.br\Date and Time Co-Signed: 10/11/23 19:41 EDTPatient Educationon 09-53-9087Sprdvum EducationCardiovascular Heart Failure Exacerbation Heart failure is [...] these instructions at home: Medicines ? Take qyef-ggr-ecqolgu and prescription medicines only as told by [...] daily tasks (more content not included)...Normal [facility]ana [facility] CenterED Note-Physicianon 38-97-4025HW Note-Physician [id number]#1.00TIFFNormalFisher Western Maryland Hospital CenterBasic Metabolic Profon 79-31-0590Zauzq gap [Moles/Vol]12 mmol/LNormal9-17 [facility] HospitalComment on above:Performed By: #### BNP, DIME, BMP, TROPI, CDP #### [facility] [address] [place] [address] Fishing Rod Mechanic: KASH Joshialcium [Mass/Vol]9.0 mg/dLNormal8.6-10.4[facility] Behavioral HospitalComment on above:Performed By: #### BNP, DIME, BMP, TROPI, CDP #### [facility] [address] [place] [address] Fishing Rod Mechanic: KASH Joshihloride [Moles/Vol]100 mmol/TSxdkim12-195MapelGeorgetown Behavioral HospitalComment on above:Performed By: #### BNP, DIME, BMP, TROPI, CDP #### [facility] [address] [place] [address] Fishing Rod Mechanic: Yury Caba MDCO2 [Moles/Vol]24 mmol/DFntuvq66-51MwitbGeorgetown Behavioral HospitalComcorewell health gerber hospital on above:Performed By: #### BNP, DIME, BMP, TROPI, CDP #### [facility] [address] [place] [address] Fishing Rod Mechanic: KASH Joshireatinine [Mass/Vol]0.5 mg/dLNormal0.5-0.9Mercy Doc HospitalComment on above:Performed By: #### BNP, DIME, BMP, TROPI, CDP #### [facility] [address] [place] [address] Fishing Rod Mechanic: Yury Caba MDGFR/1.73 sq M.predicted among non-blacks MDRD (S/P/Bld) [Vol rate/Area]mL/min/{1.73_m2}Normal>60[facility] HospitalComment on above:Result Comment: These results are [...] #### BNP, DIME, BMP, TROPI, CDP #### [facility] [address] [place] [address] Fishing Rod Mechanic: Yury Caba MDGlucose [Mass/Vol]122 mg/bUTsqa64-11MhldzFisher-Titus Medical CenterComment on above:Performed By: #### BNP, DIME, BMP, TROPI, CDP #### [facility] [address] [place] [address] Fishing Rod Mechanic: DEZ Joshiotassium [Moles/Vol]3.4 mmol/LLow3.7-5.3MFisher-Titus Medical CenterComment on above:Performed By: #### BNP, DIME, BMP, TROPI, CDP #### [facility] [address] [place] [id number] Fishing Rod Mechanic: SANDRA Joshiodium [Moles/Vol]136 mmol/CJmmcsn192-132PmzjmGeorgetown Behavioral HospitalComment on above:Performed By: #### BNP, DIME, BMP, TROPI, CDP #### [facility] [address] [place] [id number] Fishing Rod Mechanic: Yury Caba MDUrea nitrogen [Mass/Vol]14 mg/dLNormal8-23MerEllis HospitalComment on above:Performed By: #### BNP, DIME, BMP, TROPI, CDP #### [facility] [address] [place] [address] Fishing Rod Mechanic: Yury Caba MDBrain Natri. Peptideon 37-61-8750Ueesrowhpum peptide B (Bld) [Mass/Vol]3161 pg/mLHigh<300MerEllis HospitalComment on above:Result Comment: An age-independent cutoff point of 300 pg/ml has a 98% negative predictive value excluding acute heart failure.Performed By: #### BNP, DIME, BMP, TROPI, CDP #### [facility] [address] [place] [id number] Fishing Rod Mechanic: KASH Joshi with Diffon 14-57-7440Hhv. Basophil0.02 k/uL Normal0.00-0.20MerClinton Memorial Hospital HospitalComment on above:Performed By: #### BNP, DIME, BMP, TROPI, CDP #### [facility] [address] [place] [address] Fishing Rod Mechanic: Arian Joshi.Imm.Granulocyte0.02 k/uLNormal0.00-0.30MerEllis HospitalComment on above:Performed By: #### BNP, DIME, BMP, TROPI, CDP #### [facility] [address] [place] [address] Fishing Rod Mechanic: Arian Joshi.Neutrophil (Seg)4.75 k/uLNormal2.5-7.0MerEllis HospitalComment on above:Performed By: #### BNP, DIME, BMP, TROPI, CDP #### [facility] [address] [place], [place] [id number] Fishing Rod Mechanic: Yury Caba MDBasophils/100 WBC (Bld)0 %Normal0-2MFisher-Titus Medical CenterComment on above:Performed By: #### BNP, DIME, BMP, TROPI, CDP #### [facility] [address] [place] [address] Fishing Rod Mechanic: LENA Joshiosinophils (Bld) [#/Vol]0.03 10*3/uLNormal 0.00-0.40[facility] HospitalComment on above:Performed By: #### BNP, DIME, BMP, TROPI, CDP #### [facility] [address] [place] [address] Fishing Rod Mechanic: LENA Joshiosinophils/100 WBC (Bld)1 %Normal0-5[facility] Behavioral HospitalComment on above:Performed By: #### BNP, DIME, BMP, TROPI, CDP #### [facility] [address] [place] [address] Fishing Rod Mechanic: Yury Caba MDErythrocyte distribution width (RBC) [Ratio]13.8 % Ijvyzm78.1-15.2MFisher-Titus Medical CenterComment on above:Performed By: #### BNP, DIME, BMP, TROPI, CDP #### [facility] [address] [place] [address] Fishing Rod Mechanic: Yury Caba MDHematocrit (Bld) [Volume fraction]36.4 %Normal 36.0-46.0Tri[facility]hes[facility] Butler Hospitalment on above:Performed By: #### BNP, DIME, BMP, TROPI, CDP #### [facility] [address] [place] [address] Fishing Rod Mechanic: Yury Caba MDHemoglobin (Bld) [Mass/Vol]12.5 g/dLNormal 12.0-16.0Georgetown Behavioral HospitalComment on above:Performed By: #### BNP, DIME, BMP, TROPI, CDP #### [facility] [address] [id number] Fishing Rod Mechanic: Ailin Joshi granulocytes/100 WBC (Bld)0 %Normal0-5 [facility] on above:Performed By: #### BNP, DIME, BMP, TROPI, CDP #### [facility] [address] [place] [address] Fishing Rod Mechanic: Penelope Joshimphocytes (Bld) [#/Vol]0.54 10*3/uLLow1.00-4.80 [facility] on above:Performed By: #### BNP, DIME, BMP, TROPI, CDP #### [facility] [address] [place] [address] Fishing Rod Mechanic: Beatrice Joshihocytes/100 WBC (Bld)9 %Jhv32-15UrgbeGeorgetown Behavioral HospitalComment on above:Performed By: #### BNP, DIME, BMP, TROPI, CDP #### [facility] [address] [place] [address] Fishing Rod Mechanic: MARIAJOSE Joshi (RBC) [Entitic mass]34.1 dyDwzu07.0-34.0[facility]al HospitalComment on above:Performed By: #### BNP, DIME, BMP, TROPI, CDP #### [facility] [address] [place] [address] Fishing Rod Mechanic: MARIAJOSE JoshiC (RBC) [Mass/Vol]34.3 g/jJImrile31.0-37.0[facility]al HospitalComment on above:Performed By: #### BNP, DIME, BMP, TROPI, CDP #### [facility] [address] [phone] Fishing Rod Mechanic: KATHIE JoshiCV (RBC) [Entitic vol]99.2 hFBjqnvf67.0-100.0 [facility] HospitalComment on above:Performed By: #### BNP, DIME, BMP, TROPI, CDP #### [facility] [address] [place] [address] Fishing Rod Mechanic: KATHIE Joshionocytes (Bld) [#/Vol]0.47 10*3/uLNormal0.00-1.00 [facility] HospitalComcorewell health gerber hospital on above:Performed By: #### BNP, DIME, BMP, TROPI, CDP #### [facility] [address] [place] [address] Fishing Rod Mechanic: KATHIE Joshionocytes/100 WBC (Bld)8 %Normal4-8Ge[facility] Behavioral HospitalComment on above:Performed By: #### BNP, DIME, BMP, TROPI, CDP #### [facility] [address] [place] [address] Fishing Rod Mechanic: Veronika Joshi (Seg)82 %Rraq21-06JulifGeorgetown Behavioral HospitalComment on above:Performed By: #### BNP, DIME, BMP, TROPI, CDP #### [facility] [address] [place] [address] Fishing Rod Mechanic: Michael Joshi mean volume (Bld) [Entitic vol]9.0 fL Normal6.0-12.0[facility] HospitalComcorewell health gerber hospital on above:Performed By: #### BNP, DIME, BMP, TROPI, CDP #### [facility] [address] [place] [address] Fishing Rod Mechanic: James Joshi (Bld) [#/Vol]176 10*3/uHKgwzsf402-911 [facility] HospitalComcorewell health gerber hospital on above:Performed By: #### BNP, DIME, BMP, TROPI, CDP #### [facility] [address] [place] [address] Fishing Rod Mechanic: RHIANNON Joshi (d) [#/Vol]3.67 10*6/uLLow4.00-5.20[facility]al HospitalComment on above:Performed By: #### BNP, DIME, BMP, TROPI, CDP #### [facility] [address] [place] [address] Fishing Rod Mechanic: JAI Joshi ([facility]) [#/Vol]5.8 10*3/uLNormal3.5-11.0[facility] Behavioral HospitalComment on above:Performed By: #### BNP, DIME, BMP, TROPI, CDP #### [facility] [address] [place] [address] Fishing Rod Mechanic: CASSIE Joshi-Dimer Teston [id number]-Dimer Test0.68 ug/mL FEUHigh0.00-0.59Ge[facility] Behavioral HospitalComment on above:Result Comment: When combined with [...] #### BNP, DIME, BMP, TROPI, CDP #### [facility] [address] [place] [address] Fishing Rod Mechanic: LURDES Joshi - MISCon [id number] [facility] [id number]#1.00TIFFNormalFisher Western Maryland Hospital CenterTroponinon 45-21-8828Dedebuyn, High Sens27 ng/LHigh0-14Ge[facility] Behavioral HospitalComment on above:Result Comment: High Sensitivity Troponin values cannot be compared with other Troponin methodologies.Performed By: #### BNP, DIME, BMP, TROPI, CDP #### [facility] [address] [place] [address] Fishing Rod Mechanic: Yury Caba, MDXR CHEST (2 VW)on 49-97-6096HR CHEST (2 VW)EXAM: XR CHEST (2 VW) HISTORY: Shortness of breath COMPARISON: None. IMPRESSION: FINDINGS/IMPRESSION: 1. Shallow breath with clear lungs. 2. Mild cardiomegaly. Interpreted by: Casa Minor Jr., MD Signed by: Casa Minor Jr., MD 10/06/23 Final resultNormalSelect Medical Specialty Hospital - [facility], Inc LIVERon [id number] LIVER EXAMINATION: RIGHT UPPER QUADRANT ULTRASOUND 08/24/2023 [...] Signed by: Braulio Crawley DO 08/24/23 Final resultNoGrant HospitalHemoglobin A1Con [id number] [Mass/Vol]108 mg/dLNormMain Campus Medical CenterComment on above:Result Comment: The ADA and AACC recommend providing the estimated average glucose result to permit better patient understanding of their HBA1c result.Performed By: #### GLYHGB, LIPR, URNMAB ####[facility] [address] [place] [address] Lab Director: Agusto Ferrell MD#### DYLAN ANNE CP, ZFAST ####[facility] Jit[address] [place], [place] [phone] Director: Yury Caba MDHbA1c (Bld) [Mass fraction]5.4 %Normal4.0-6.0 [facility] Behavioral HospitalComment on above:Performed By: #### GLYHGB, LIPR, URNMAB ####[facility] W[address]oymhmyargt14[address] [place] [address] Lab Director: Agusto Ferrell MD#### DYLAN ANNE, CP, ZFAST ####[facility] [address] [place], [place] 4067890 Lab Director: Yury Caba MD Lipid Panelon 38-20-1936Xczpiialwql [Mass/Vol]206 mg/dLHighNINF - 200 mg/dLBON [facility] YOU[facility]STOWN HOSPITALComment on above: Cholesterol Guidelines: <200 Desirable 200-240 Borderline >240 Undesirable Cholesterol in HDL [Mass/Vol]95 mg/dL40 - PINF mg/dLBON [facility] Comment on above: HDL Guidelines: <40 Undesirable 40-59 Borderline >59 Desirable Cholesterol in LDL [Mass/Vol]67 mg/dL0 - 130 mg/dLBON [facility] Comment on above: LDL Guidelines: <100 Desirable 100-129 Near to/above Desirable 130-159 Borderline >159 Undesirable Direct (measured) LDL and calculated LDL are not interchangeable tests. Cholesterol.total/Cholesterol in HDL [Mass ratio]2.2 {ratio}NINF - 5BON [facility] HOSPITALInterpretation and review of laboratory resultsAbnormSentara Virginia Beach General HospitalTriglyceride [Mass/Vol]221 mg/dLHighNINF - 150 mg/dLBON [facility] on above: Triglyceride Guidelines: <150 Desirable 150-199 Borderline 200-499 High >499 Very high Based on AHA Guidelines for fasting triglyceride, April 2012. [facility] YOUNGSTOWN HOSPITALLipid Profileon 21-70-1632Yqpcwhlxtsp [Mass/Vol]206 mg/dLHigh<200[facility] on above:Result Comment: Cholesterol Guidelines: <200 Desirable 200-240 Borderline >240 UndesirablePerformed By: #### GLYHGB, LIPR, URNMAB ####[facility] [address] [place] [address] Lab Director: Agusto Ferrell MD#### DYLAN ANNE, TAINA, ZFAST ####[facility] [address]08 [place] [address] Lab Director: Yury Caba MD Cholesterol in HDL [Mass/Vol]95 mg/dLNormal>40[facility] on above:Result Comment: HDL Guidelines: <40 Undesirable 40-59 Borderline >59 DesirablePerformed By: #### GLYHGB, LIPR, URNMAB ####[facility] [address]ktiaun[address] [place] [address] Lab Director: Agusto Ferrell MD#### DYLAN ANNE, CP, ZFAST ####[facility] Qqx2200 [place] [address] Lab Director: KASH Joshiholesterol in LDL [Mass/Vol]67 mg/dLNormal0-130[facility] on above:Result Comment: LDL Guidelines: <100 Desirable 100-129 Near to/above Desirable 130-159 Borderline >159 Undesirable Direct (measured) LDL and calculated LDL are not interchangeable tests.Performed By: #### GLYHGB, LIPR, URNMAB ####[facility] [address]ub[address] [place] [address] Lab Director: Agusto Ferrell MD#### DYLAN ANNE, TAINA, ZFAST ####[facility] Ncc4545 [place] [phone] Director: Adan Joshi.total/Cholesterol in HDL [Mass ratio]2.2 {ratio}Normal<5MerEllis HospitalComment on above:Performed By: #### GLYHGB, LIPR, URNMAB ####[facility] [address]cjey[address] [place] [address] Lab Director: Agusto Ferrell MD#### DYLAN ANNE, TAINA, ZFAST ####[facility] [address] [phone] Director: Yury Caba MDTriglyceride [Mass/Vol]221 mg/dLHigh<150Georgetown Behavioral HospitalComment on above:Result Comment: Triglyceride Guidelines: <150 Desirable 150-199 Borderline 200-499 High >499 Very high Based on AHA Guidelines for fasting triglyceride, April 2012.Performed By: #### GLYHGB, LIPR, URNMAB ####[facility] [address]jfh[address] [place] [address] Lab Director: Agusto Ferrell MD#### DYLAN ANNE CP, ZFAST ####[facility] Psm[address]362 [place] [phone] Director: KATHIE Joshiicroalb.,Random Uron 60-05-6078Priqxslwex [Mass/Vol]45.3 mg/hPZjyaaa81.0-217.0[facility] Behavioral HospitalComment on above: Performed By: #### GLYHGB, LIPR, URNMAB ####[facility] [address]jcclvle[address] [place] [address] Lab Director: Agusto Ferrell MD#### DYLAN ANNE, TAINA, ZFAST ####[facility] Oiq9624 [place] [address] Lab Director: KATHIE Joshiicroalb/Creat RatioCan not be calculatedNormal<25MerEllis HospitalComment on above:Performed By: #### GLYHGB, LIPR, URNMAB ####[facility] Ivamxwjnobdf1917 [place] [address] Lab Director: Agusto Ferrell MD#### DYLAN ANNE, CP, ZFAST ####[facility] Yvp0722 [place] [phone] Director: KATHIE Joshiicroalbumin conc.<12Normal<21MerEllis HospitalComment on above:Performed By: #### GLYHGB, LIPR, URNMAB ####[facility] [address]vkaihwuti3970 [place] [address] lab Director: Agusto Ferrell MD#### DYLAN ANNE, CP, ZFAST ####[facility] Nrz0510 [place], [place] 2954190 lab Director: Yury Caba MD Microalbumin, Uron 78-00-4188Mtdrvin DL <= 20 mg/L (U) [Mass/Vol]mg/LNINF - 21 mg/LBON [facility] HOSPITALAlbumin/Creatinine DL <= 20 mg/L (U) [Ratio]Can not be calculatedNIINOVA ALEXANDRIA HOSPITALCreatinine (U) [Mass/Vol]45.3 mg/dL28.0 - 217.0 mg/dLBON INDIAN HEALTH SERVICE HOSPITALXR HIP 2-3 VW W PELVIS RIGHTon 56-28-6840WP HIP 2-3 VW W PELVIS RIGHTEXAM: XR [...] Signed by: Zaid Romero MD 08/11/23 Final resultNoGreene Memorial HospitalXR Pelvis and Hip - right 2 Viewson 08-11-2023 Moderate degenerative joint space narrowing involves right hip without an acute osseous abnormality identified. [facility] CONSOLIDATEDEXAM: XR HIP 2-3 VW W PELVIS [...] hip shows no fracture or stress injury. [facility] Zaid Pena MD - 08/11/2023 EXAM: XR [...] hip without an acute osseous abnormality identified. [employer]XR Pelvis and Hip - right 2 ViewsOrdered By: Zaid Romero on 03-22-7232BQI [employer] Work Phone: CBC with Auto Differentialon [id number] (Bld) [#/Vol]0.03 10*3/uLBON SirenServBasophils/100 WBC (Bld)1 %0 - 2 %[employer]fire [facility] HOSPITALEosinophils (Bld) [#/Vol]0.03 10*3/uLBON [facility] TUCSONSaborstudio [facility] HOSPITALEosinophils/100 WBC (Bld)1 %0 - 5 %[facility] SirenServErythrocyte distribution width (RBC) [Ratio]14.6 %12.1 - 15.2 %[facility] Hematocrit (Bld) [Volume fraction]38.8 %36.0 - 46.0 %[facility] Hemoglobin (Bld) [Mass/Vol]12.8 g/dL12.0 - 16.0 g/dLBON [facility] Immature granulocytes (Bld) [#/Vol]0.01 10*3/uLBON [facility] HOSPITALImmature granulocytes/100 WBC (Bld)0 %0 - 5 %[facility] HOSPITALInterpretation and review of laboratory resultsAbnormalBON [facility]NGST[facility] HOSPITALLymphocytes/100 WBC (Bld)22 %15 - 40 %[facility]' HOSPITALLymphocytes/100 WBC (Bld)0.98 %LowBON [facility] HOSPITALH (RBC) [Entitic mass]33.9 pg26.0 - 34.0 pgBON [facility] HOSPITALHC (RBC) [Mass/Vol]33.0 g/dL31.0 - 37.0 g/dLBON [facility] HOSPITALV (RBC) [Entitic vol]102.6 fJBrhe97.0 - 100.0 fLRETREAT DOCTORS' HOSPITAL Monocytes/100 WBC (Bld)8 %4 - 8 %[facility] HOSPITALMonocytes/100 WBC (Bld) 0.34 %[facility]' HOSPITALNeutrophils/100 WBC (Bld)68 %47 - 75 %[facility]CTORS' HOSPITALPlatelet mean volume (Bld) [Entitic vol]9.0 fL6.0 - 12.0 fLRETREAT DOCTORS' HOSPITALPlatelets (Bld) [#/Vol]192 10*3/uLBON [facility] RBC (Bld) [#/Vol]3.78 10*6/uLLow4.00 - 5.20 m/uLRETREAT DOCTORS' HOSPITAL Segmented neutrophils/100 WBC (Bld)2.99 %[facility] DOCTORS' HOSPITALWBC other (Bld) [#/Vol]4.4B[facility] HOSPITALCBC with Diffon [id number]. Basophil0.03 k/uLNormal0.00-0.20Ge[facility] Behavioral HospitalComment on above:Performed By: #### GLYHGB, LIPR, URNMAB ####[facility] Xxtkkfa[address]gp2502 [place] [address] Lab Director: Agusto Ferrell MD#### DIME, CDP, CP, ZFAST ####[facility] Auk[address] [place] [address] Lab Director: MDAbs. AdiImm.Granulocyte0.01 k/uL Normal0.00-0.30[facility] Behavioral HospitalComment on above:Performed By: #### GLYHGB, LIPR, URNMAB ####[facility] [address] [place] [phone] Director: Agusto Ferrell MD#### DAYANA, CDP, CP, ZFAST ####[place] [address] Lab Director: Arian Joshi.Neutrophil (Seg)2.99 k/uLNormal2.5-7.0[facility] Behavioral HospitalComment on above:Performed By: #### GLYHGB, LIPR, URNMAB ####[place] [address] Lab Director: Agusto Ferrell MD#### DAYANA, DYLAN, CP, ZFAST ####[facility] Gif[address] [place] [address] Lab Director: Yury Caba MD Basophils/100 WBC (Bld)1 %Normal0-2MFisher-Titus Medical CenterComment on above: Performed By: #### GLYHGB, LIPR, URNMAB ####[facility] [address] [place] [address] Lab Director: Agusto Ferrell MD#### DIME, CDP, CP, ZFAST ####[facility] [address] [phone] Lab Director: Yury Caba MDEosinophils (Bld) [#/Vol]0.03 10*3/uLNormal0.00-0.40[facility] HospitalComment on above:Performed By: #### GLYHGB, LIPR, URNMAB ####[facility] Qfcoskodgigo9620 [place] [address] Lab Director: Agusto Ferrell MD#### DIME, CDP, CP, ZFAST ####[facility] Gzz[address]67 [place], [place] [address])[phone] Director: Yury Caba MDEosinophils/100 WBC (Bld)1 %Normal0-5[facility]al HospitalComment on above:Performed By: #### GLYHGB, LIPR, URNMAB ####[address] [place] [address] Lab Director: Agusto Ferrell MD#### DIME, CDP, CP, ZFAST ####[facility] [address] [place], [place] [address])[phone] Director: Yury Caba MD Erythrocyte distribution width (RBC) [Ratio]14.6 %Jbzidf35.1-15.2MFisher-Titus Medical CenterComment on above:Performed By: #### GLYHGB, LIPR, URNMAB ####[facility] [address]ksv[address]jixc[address]64 [place] [address] Lab Director: Agusto Ferrell MD#### DIME, CDP, CP, ZFAST ####[facility] [address] [place], [place] [address])[phone] Director: Yury Caba MD Hematocrit (Bld) [Volume fraction]38.8 %Hqmqdt59.0-46.0[facility] Comment on above:Performed By: #### GLYHGB, LIPR, URNMAB ####[facility] [address]yp[address] [place] [address] Lab Director: Agusto Ferrell MD#### DIME, CDP, CP, ZFAST ####[facility] Fcl6412 [place] [address] Lab Director: Yury Caba MD Hemoglobin (Bld) [Mass/Vol]12.8 g/dYQkblnf03.0-16.0[facility] HospitalComment on above:Performed By: #### GLYHGB, LIPR, URNMAB ####[facility] [address]aj[address]fcztc[address] [place] [address] Lab Director: Agusto Ferrell MD#### DIME, CDP, CP, ZFAST ####[facility] Mqe6101 [place] [address] Lab Director: Yury Caba MDImmature granulocytes/100 WBC (Bld)0 %Normal0-5[facility]al HospitalComment on above: Performed By: #### GLYHGB, LIPR, URNMAB ####[address] [place] [address] Lab Director: Agusto Ferrell MD#### DIME, CDP, CP, ZFAST ####[facility] Zrw8574 [place] [address] Lab Director: Yury Caba MDLymphocytes (Bld) [#/Vol]0.98 10*3/uLLow1.00-4.80[facility] HospitalComment on above:Performed By: #### GLYHGB, LIPR, URNMAB ####[facility] [address] [place] [address] Lab Director: Agusto Ferrell MD#### DIME, CDP, CP, ZFAST ####[facility] Ujz[address]13 [place], [place] [phone] Director: Yury Caba MDLymphocytes/100 WBC (Bld)22 %Rjqihd92-42SeahzGeorgetown Behavioral HospitalComment on above:Performed By: #### GLYHGB, LIPR, URNMAB ####[facility] R[address]ocpvbidli[address]476 [place] [address] Lab Director: Agusto Ferrell MD#### DAYANA, DYLAN, CP, ZFAST ####[facility] [address] [place] [address] Lab Director: Yury Caba MD MCH (RBC) [Entitic mass]33.9 xpTuwzfc33.0-34.0[facility] HospitalComment on above:Performed By: #### GLYHGB, LIPR, URNMAB ####[address] [place] [address] Lab Director: Agusto Ferrell MD#### DAYANA, DYLAN, CP, ZFAST ####[facility] [address] [place] [address] Lab Director: KATHIE JoshiCHC (RBC) [Mass/Vol]33.0 g/dL Escqrb54.0-37.0[facility] HospitalComment on above:Performed By: #### GLYHGB, LIPR, URNMAB ####[facility] [address] [place] [phone] Director: Agusto Ferrell MD#### DIMDarlene, DYLAN, CP, ZFAST ####[facility] Bcp[address]686 [place] [address] Lab Director: KATHIE JoshiCV (RBC) [Entitic vol]102.6 fVOkve64.0-100.0[facility] HospitalComment on above:Performed By: #### GLYHGB, LIPR, URNMAB ####[facility] [address]av[address]htzu[address] [place] [address] Lab Director: Agusto Ferrell MD#### DIME, CDP, CP, ZFAST ####[facility] Rlb4459 [place] [address] Lab Director: Yury Caba MD Monocytes (Bld) [#/Vol]0.34 10*3/uLNormal0.00-1.00[facility] HospitalComment on above:Performed By: #### GLYHGB, LIPR, URNMAB ####[facility] [address] [place] [address] Lab Director: Agusto Ferrell MD#### DIMDarlene, CDP, CP, ZFAST ####[facility] [address]yi[address]18 [place] [address] Lab Director: Yury Caba MDMonocytes/100 WBC (Bld)8 %Normal4-8[facility] HospitalComment on above:Performed By: #### GLYHGB, LIPR, URNMAB ####[facility] R[address] [place] [address] Lab Director: Agusto Ferrell MD#### DAYANA, DYLAN, CP, ZFAST ####[facility] [address]27 [place] [phone] Director: Yury Caba MDNeutrophil (Seg)68 %Eoertw38-21YbdrdGeorgetown Behavioral HospitalComment on above:Performed By: #### GLYHGB, LIPR, URNMAB ####[facility] [address]ys[address] [place] [address] Lab Director: Agusto Ferrell MD#### DAYANA, DYLAN, CP, ZFAST ####[facility] Ezk[address]662 [place] [address] Lab Director: DEZ Joshilatelet mean volume (Bld) [Entitic vol]9.0 fLNormal6.0-12.0[facility] Comment on above:Performed By: #### GLYHGB, LIPR, URNMAB ####[facility] [address]uzys[address] [place] [address] Lab Director: Agusto Ferrell MD#### DIME, CDP, CP, ZFAST ####[facility] Zeu[address]25 [place] [address] Lab Director: Yury Caba MD Platelets (d) [#/Vol]192 10*3/lSGhohxg447-074LvealGeorgetown Behavioral HospitalComment on above:Performed By: #### GLYHGB, LIPR, URNMAB ####[facility] Krzueufrwtzw5475 [place] [address] Lab Director: Agusto Ferrell MD#### DIME, CDP, CP, ZFAST ####[facility] Nuh[address]286 [place] [address] Lab Director: RHIANNON JoshiBC ([facility]) [#/Vol]3.78 10*6/uLLow 4.00-5.20[facility] HospitalComment on above:Performed By: #### GLYHGB, LIPR, URNMAB ####[facility] Uorxybcoyjyl3683 [place] [address] Lab Director: Agusto Ferrell MD#### DIMDarlene, CDP, CP, ZFAST ####[facility] [address]ux[address]370 [place] [address] Lab Director: Yury Caba MDWBC (d) [#/Vol]4.4 10*3/uLNormal3.5-11.0[facility] Comment on above:Performed By: #### GLYHGB, LIPR, URNMAB ####[facility] [address]rdwpjbhs4605 [place] [address] Lab Director: Agusto Ferrell MD#### DIME, CDP, CP, ZFAST ####[facility] Jkr6098 [place], [place] [address])[phone] Director: KASH Joshiomp Metabolic Profon 07-43-0409Lvbockg [Mass/Vol]4.3 g/dLNormal3.5-5.2Mmercy health urbana hospitaly [facility] Health SystemComment on above:Performed By: #### GLYHGB, LIPR, URNMAB ####[facility] [address]ykhiakmaopu[address] [place] [address] Lab Director: Agusto Ferrell MD#### DAYANA, DYLAN, CP, ZFAST ####[facility] Ehu[address] [place], [place] [address])[phone] Director: Arcelia Joshi Beah940 U/MEqos20-153FumwuGeorgetown Behavioral HospitalComment on above:Performed By: #### GLYHGB, LIPR, URNMAB ####[address] [place] [address] Lab Director: Agusto Ferrell MD#### DAYANA, DYLAN, CP, ZFAST ####[facility] Vhb2436 [place] [phone] Director: Yury Caba MDALT [Catalytic activity/Vol]84 U/LHigh5-33 [facility] HospitalComment on above:Performed By: #### GLYHGB, LIPR, URNMAB ####[address] [place] [address] Lab Director: Agusto Ferrell MD#### DAYANA, DYLAN, CP, ZFAST ####[facility] [address] [place] [address] Lab Director: Yury Caba MD Anion gap [Moles/Vol]13 mmol/LNormal9-17[facility] HospitalComment on above: Performed By: #### GLYHGB, LIPR, URNMAB ####[address] [place] [address] Lab Director: Agusto Ferrell MD#### DYLAN ANNE, CP, ZFAST ####[facility] Ojt[address]91 [place] [address] Lab Director: Yury Caba MDAST [Catalytic activity/Vol]83 U/LHigh<32[facility] HospitalComment on above:Performed By: #### GLYHGB, LIPR, URNMAB ####[facility] Jtxdktptucpo9474 [place] [phone] Director: Agusto Ferrell MD#### DYLAN ANNE, TAINA, ZFAST ####[facility] Cos[address] [place] [address] Lab Director: Yury Caba MDBilirubin [Mass/Vol]0.4 mg/dLNormal0.3-1.2MFisher-[facility] Comment on above:Performed By: #### GLYHGB, LIPR, URNMAB ####[facility] Ywqky[address]vwenbx5263 [place] [address] Lab Director: Agusto Ferrell MD#### DYLAN ANNE, CP, ZFAST ####[facility] Rnv2411 [place] [address] Lab Director: Yury Caba MDBUN/CRE Jopjf36Yxpdom4-23Gmzul Willard HospitalComment on above:Performed By: #### GLYHGB, LIPR, URNMAB ####[facility] [address]rw[address]gfzhe[address]282 [place] [address] Lab Director: Agusto Ferrell MD#### DYLAN ANNE, CP, ZFAST ####[facility] [address] [place] [phone] Director: KASH Joshialcium [Mass/Vol]9.3 mg/dLNormal8.6-10.4[facility] HospitalComment on above:Performed By: #### GLYHGB, LIPR, URNMAB ####[facility] Tvpxxezrw[address]tt8691 [place] [address] Lab Director: Agusto Ferrell MD#### DIME, CDP, CP, ZFAST ####[facility] [address] [place] [address] Lab Director: Yury Caba MD Chloride [Moles/Vol]98 mmol/HJotzcu78-205PsmiwGeorgetown Behavioral HospitalComment on above: Performed By: #### GLYHGB, LIPR, URNMAB ####[facility] [address] [place] [address] Lab Director: Agusto Ferrell MD#### ADRIELE, CDP, CP, ZFAST ####[facility] [id number] [place] [address] Lab Director: KASH JoshiO2 [Moles/Vol]26 mmol/LNormal 20-31Ge[facility] Behavioral HospitalComment on above:Performed By: #### GLYHGB, LIPR, URNMAB ####[facility] [address] [place] [address] Lab Director: Agusto Ferrell MD#### DIME, CDP, CP, ZFAST ####[facility] [id number] [place] [id number] Lab Director: KASH Joshireatinine [Mass/Vol]0.6 mg/dLNormal0.5-0.9[facility] Comment on above:Performed By: #### GLYHGB, LIPR, URNMAB ####[facility] [address] [place] [address] Lab Director: Agusto Ferrell MD#### DIME, CDP, CP, ZFAST ####[facility] [address] [id number] Lab Director: Yury Caba MDGFR/1.73 sq M.predicted among non-blacks MDRD (S/P/Bld) [Vol rate/Area]mL/min/{1.73_m2} Normal>60[facility] HospitalComment on above:Result Comment: These results are [...] tubular secretion.Performed By: #### GLYHGLima, LIPR, URNMAB ####[address] [address] Lab Director: Agusto Ferrell MD#### DYLAN ANNE CP, ZFAST ####[facility] [address] [place], [place] [address])[phone] Director: Yury Caba MDGlucose [Mass/Vol]91 mg/hDCxlaqz45-58CiiqwFisher-Titus Medical CenterComment on above:Performed By: #### GLYHGLima, LIPR, URNMAB ####[address] [address] Lab Director: Agusto Ferrell MD#### DYLAN ANNE, CP, ZFAST ####[facility] [address] [place], [place] [id number] Lab Director: DEZ Joshiotassium [Moles/Vol]4.3 mmol/L Normal3.7-5.3MFisher-Titus Medical CenterComment on above:Performed By: #### GLYHGB, LIPR, URNMAB ####[address] [phone] Director: Agusto Ferrell MD#### DYLAN ANNE, CP, ZFAST ####[facility] [address] [place] [address] Lab Director: DEZ Joshirotein [Mass/Vol]7.2 g/dLNormal6.4-8.3MFisher-Titus Medical Center Comment on above:Performed By: #### GLYHGB, LIPR, URNMAB ####[facility] [address] [place] [address] Lab Director: Agusto Ferrell MD#### DIMDarlene, DYLAN, CP, ZFAST ####[facility] [address] [place], [place] [phone] Lab Director: SANDRA Joshiodium [Moles/Vol]137 mmol/QPufgyc813-855BxpiuGeorgetown Behavioral HospitalComment on above: Performed By: #### GLYHGB, LIPR, URNMAB ####[address] [place] [address] Lab Director: Agusto Ferrell MD#### DAYANA, DYLAN, CP, ZFAST ####[facility] [address] [place] [address] Lab Director: Yury Caba MDUrea nitrogen [Mass/Vol]10 mg/dL Normal8-23[facility] HospitalComment on above:Performed By: #### GLYHGB, LIPR, URNMAB ####[facility] [address] [place] [phone] Director: Agusto Ferrell MD#### DYLAN ANNE, CP, ZFAST ####[facility] [address] [place] [address] Lab Director: KASH Joshiomprehensive Metabolic Panelon 90-84-1933Nfzoxhb [Mass/Vol]4.3 g/dL3.5 - 5.2 g/dLBON MER[facility] HOSPITALALP [Catalytic activity/Vol]169 U/L High35 - 104 U/LBON [facility] HEALTHALT [Catalytic activity/Vol]84 U/LHigh5 - 33 U/LBON [facility] HOSPITALAnion gap [Moles/Vol]13 mmol/L9 - 17 mmol/LBON [facility] HEALTHAST [Catalytic activity/Vol]83 U/LHighNINF - 32 U/LBON [facility] HEALTHBilirubin [Mass/Vol]0.4 mg/dL0.3 - 1.2 mg/dLBON [facility] HEALTHCalcium [Mass/Vol]9.3 mg/dL8.6 - 10.4 mg/dLBON [facility] Chloride [Moles/Vol]98 mmol/L98 - 107 mmol/LBON [facility] HEALTHCO2 [Moles/Vol]26 mmol/L20 - 31 mmol/LBON [facility] HOSPITALCreatinine [Mass/Vol] 0.6 mg/dL0.5 - 0.9 mg/dLBON [facility] HOSPITALGFR/1.73 sq M.predicted MDRD (S/P/Bld) [Vol rate/Area]- PINFBON MERCY [facility] ST. [facility] HOSPITALComment on above: These results are not [...] secretion. Glucose [Mass/Vol]91 mg/dL70 - 99 mg/dLBON [facility] HOSPITALInterpretation and review of laboratory resultsAbnormalBON [facility] HEALTHPotassium [Moles/Vol]4.3 mmol/L3.7 - 5.3 mmol/LBON [facility] HEALTHProtein [Mass/Vol] 7.2 g/dL6.4 - 8.3 g/dLBON [facility] HOSPITALSodium [Moles/Vol]137 mmol/L135 - 144 mmol/LBON [facility] HEALTHUrea nitrogen [Mass/Vol]10 mg/dL8 - 23 mg/dL [facility] HOSPITALUrea nitrogen/Creatinine [Mass ratio]17 mg/mg9 - 20BON [facility] HOSPITALBON SECOURS MERCY HEALTHD-Dimer Teston 09-32-0802Q-Dimer Test0.51 ug/mL FEUNormal0.00-0.59[facility] on above:Result Comment: When combined with [...] distal DVT.Performed By: #### GLYHGB, LIPR, URNMAB ####[employer] [address] [place] [address] Lab Director: Agusto Ferrell MD#### DYLAN ANNE, CP, ZFAST ####[facility] [address] [place] [address] Lab Director: Yury Caba MDD-Dimer, Quantitativeon 22-20-5636Tezimo D-dimer FEU (PPP) [Mass/Vol]0.51[facility] on above: When combined with a [...] more prevalent in patients with distal DVT. [facility]ITALPatient fasting?on 95-93-7632Woiboce fasting?Patient RefusedNormalGeorgetown Behavioral HospitalComment on above:Performed By: #### GLYHGB, LIPR, URNMAB ####[facility] [address] [place] [phone] Director: Agusto Ferrell MD#### DYLAN ANNE, CP, ZFAST ####[facility] [address] [place], [place] [phone] Lab Director: JEANNA Joshi Pelvis and Hip - right 2 Viewson 13-98-4373Mvlbcfprh Study observation (narrative)[facility]OSPITALVL DUP LOWER EXTREMITY VENOUS BILATERALon 12-01-2022 Negative. [facility] CONSOLIDATEDEXAM: DUP LOWER EXTREMITY VENOUS BILATERAL REFLUX STUDY. HISTORY: Bilateral leg swelling and pain, 3 months. Fatigue, unspecified type. COMPARISON: None. TECHNIQUE: Compression and augmentation with velocity measurements of the superficial venous system both lower extremities. Evaluation of the deep venous system bilaterally for thrombus. FINDINGS: No reflux. No thrombus from the groin through the calf within the superficial or deep system bilaterally. [facility] Casa Ulloa Jr., MD - 12/01/2022 EXAM: [...] superficial or deep system bilaterally. IMPRESSION: Negative. [employer] Phone: radiology Study observation (narrative)[employer] Phone: VL DUP LOWER EXTREMITY VENOUS BILATERALOrdered By: Casa Minor on 46-76-4111[employer] Phone: XR CERVICAL SPINE (4-5 VIEWS)on 10-19-2022 FINDINGS/IMPRESSION: 1. Moderate disc space narrowing and anterior osteophyte formation from C4-C5 inferiorly. 2. Intervertebral foramina show minimal narrowing bilaterally due to facet and uncovertebral osteophytes. 3. No fracture. [facility] RIS CONSOLIDATEDEXAM: XR CERVICAL SPINE (4-5 VIEWS). HISTORY: Left hand weakness. COMPARISON: None. [facility] Casa Ulloa Jr., MD - 10/19/2022 EXAM: XR CERVICAL SPINE (4-5 VIEWS). HISTORY: Left hand weakness. COMPARISON: None. IMPRESSION: FINDINGS/IMPRESSION: 1. Moderate disc space narrowing and anterior osteophyte formation from C4-C5 inferiorly. 2. Intervertebral foramina show minimal narrowing bilaterally due to facet and uncovertebral osteophytes. 3. No fracture. [employer] Phone: radiology Study observation (narrative)[employer] Phone: XR CERVICAL SPINE (4-5 VIEWS)Ordered By: Casa Minor on 76-65-3017DAB [employer] Phone: XR LUMBAR SPINE (MIN 4 VIEWS)on 10-19-2022 FINDINGS/IMPRESSION: 1. Moderate to moderately severe diffuse disc space narrowing and osteophyte formation similar to previous. 2. Mild facet degenerative change L4-L5 and L5-S1. 3. No fracture or pars defects. 4. Slight convex right lumbar curve unchanged. [facility] CONSOLIDATEDEXAM: XR LUMBAR SPINE (MIN 4 VIEWS) HISTORY: Weakness of both legs COMPARISON: CT abdomen and pelvis 02/07/2020. [facility] Casa Ulloa Jr., MD - 10/19/2022 EXAM: XR LUMBAR SPINE (MIN 4 VIEWS) HISTORY: Weakness of both legs COMPARISON: CT abdomen and pelvis 02/07/2020. IMPRESSION: FINDINGS/IMPRESSION: 1. Moderate to moderately severe diffuse disc space narrowing and osteophyte formation similar to previous. 2. Mild facet degenerative change L4-L5 and L5-S1. 3. No fracture or pars defects. 4. Slight convex right lumbar curve unchanged. [facility] [employer] Work Phone: radiology Study observation (narrative)[facility] [employer] Work Phone: XR LUMBAR SPINE (MIN 4 VIEWS)Ordered By: Casa Minor on 18-65-1683OZN [facility] [employer] Work Phone: Glucose, Whole Bloodon 58-68-0129Bbvaffu [Mass/Vol]127 mg/rAUdlo52 - 99 mg/dLBON [facility] [employer])Interpretation and review of laboratory resultsAbnormRiverside Doctors' Hospital WilliamsburgPOCT glucoseOrdered By: Barrington Prescott on 37-97-3761Blumfgewnvzges and review of laboratory resultsNormCentra Health [employer] ([employer])QC OK?yBON [facility] [employer]) [facility] [employer])Brain Natriuretic Peptideon 20-07-9221Rrpunvlyfwh peptide B (Bld) [Mass/Vol]42 pg/mLNINF - 300 pg/mLRET[facility] Comment on above: An age-independent cutoff point of 300 pg/ml has a 98% negative predictive value excluding acute heart failure. CBC with Auto Differentialon 19-09-5012Lgzbhvfn Eos #0.10BON [facility] HOSPITALAbsolute Lymph #1.60BON [facility] [employer])Absolute Beltrami #0.40BON [facility] HOSPITALBasophils (Bld) [#/Vol]0.00 10*3/uLBON [facility] Basophils/100 WBC (Bld)1 %0 - 2 %[facility]OS[facility]ITALDifferential TypeYESBON [facility] ST[facility] HOSPITALEosinophils/100 WBC (Bld)2 %0 - 5 %[facility] Hematocrit (Bld) [Volume fraction]41.4 %36 - 46 %[facility] Hemoglobin (Bld) [Mass/Vol]13.5 g/dL12.0 - 16.0 g/dLBON [facility] Interpretation and review of laboratory resultsAbnormalBON [facility] Lymphocytes/100 WBC (Bld)24 %15 - 40 %[facility] HOSPITALH (RBC) [Entitic mass]30.8 pg26 - 34 pgBON [facility]OSPITALHC (RBC) [Mass/Vol]32.7 g/dL31 - 37 g/dLBON [facility] HOSPITALV (RBC) [Entitic vol]94.3 fL80 - [address] [facility] HOSPITALMonocytes/100 WBC (Bld)5 %4 - 8 %[facility] Platelet distribution width (Bld) [Ratio]16.4 %High12.1 - 15.2 %[facility] HOSPITALPlatelets (Bld) [#/Vol]264 10*3/uLBON [facility] HOSPITALRBC (Bld) [#/Vol]4.39 10*6/uL4.0 - 5.2 m/uLRETREAT DOCTORS' HOSPITALSegmented neutrophils/100 WBC (Bld)68 %47 - 75 %[facility]' HOSPITALSegs Absolute4.70 [facility]CTORS' HOSPITALWBC (Bld) [#/Vol]6.9 10*3/uLBON [facility] HOSPITALCMPon 71-97-9248Irvzgvf [Mass/Vol]4.4 g/dL3.5 - 5.2 g/dLBON [facility] YOU[facility] HOSPITALALP [Catalytic activity/Vol]86 U/L35 - 104 U/LBON [facility]OSPITALALT [Catalytic activity/Vol]33 U/L5 - 33 U/LBON [facility] Anion gap [Moles/Vol]14 mmol/L9 - 17 mmol/LBON [facility] HEALTHAST [Catalytic activity/Vol]29 U/LNINF - 32 U/LBON [facility] HEALTHBilirubin [Mass/Vol]0.3 mg/dL0.3 - 1.2 mg/dLBON [facility] HEALTHCalcium [Mass/Vol]8.8 mg/dL8.6 - 10.4 mg/dLBON [facility] HEALTHChloride [Moles/Vol]96 mmol/LLow98 - 107 mmol/LBON [facility] HEALTHCO2 [Moles/Vol]23 mmol/L20 - 31 mmol/LBON [facility] HEALTHCreatinine [Mass/Vol]0.8 mg/dL0.50 - 0.90 mg/dLBON SECOURS COREY HOSPITALY HEALTHGFR/1.73 sq M.predicted MDRD (S/P/Bld) [Vol rate/Area]- PINFBON MER[facility] ST. [facility] YOUNG[facility]OWN HOSPITALComment on above: These results are not [...] that affects renal tubular secretion. Glucose [Mass/Vol]108 mg/mEBfqm84 - 99 mg/dLBON SEC[facility]RS [facility] HEALTHPotassium [Moles/Vol]3.9 mmol/L3.7 - 5.3 mmol/LBON SEC[facility] COREY HOSPITALY HEALTHProtein [Mass/Vol] 7.4 g/dL6.4 - 8.3 g/dLBON [facility] MERCY HEALTHSodium [Moles/Vol]133 mmol/VKqx183 - 144 mmol/LBON [facility] HEALTHUrea nitrogen [Mass/Vol]11 mg/dL6 - 20 mg/dLBON [facility] MERCY HEALTHUrea nitrogen/Creatinine (Bld) [Mass ratio]149 - 20 B[facility]OREY HOSPITALProgression Labs HEALTHEthanolon 85-40-8594Zdnprzv [Mass/Vol]230 mg/dLHighNINF - 10 mg/dLBON SECOURS COREY HOSPITALY HEALTHEthanol percent0.23 %BON [facility] HEALTH No Panel Informationon 44-99-8701EYN [facility] HOSPITALInterpretation and review of laboratory resultsAbnormalRETREAT DOCTORS' HOSPITALTroponinon 17-33-3119Kyxdvwua I.cardiac DL <= 0.01 ng/mL [Mass/Vol]6 ng/L0 - 14 ng/LBON [facility] TEHACHAPIProgression Labs [facility] on above:High Sensitivity Troponin values cannot be compared with other Troponin methodologies.XR CHEST PORTABLEon 10-14-2022 1. Mild cardiomegaly. 2. Mild bibasilar atelectasis. [facility] CONSOLIDATEDEXAM: XR CHEST PORTABLE HISTORY: Reason for exam:->sob COMPARISON: Portable chest from 06/18/2018. TECHNIQUE: Portable chest was done at 9:46 PM. FINDINGS: Trachea, mediastinum and diaphragm are unremarkable. Heart size is mildly prominent. Mild bibasilar atelectasis is noted. No effusion or nodule or thorax is noted. Bony elements are intact. [facility] Monroe De La Fuente, DO - 10/14/2022 [...] 1. Mild cardiomegaly. 2. Mild bibasilar atelectasis. [facility] [employer] Work Phone: radiology Study observation (narrative)[facility] Work Phone: XR CHEST PORTABLEOrdered By: Monroe Grant on 10-14-2022 [facility] Work Phone: CKon 08-10-1331FD [Catalytic activity/Vol]39 U/L26 - 192 U/LBON [facility] TEHACHAPIProgression Labs [facility] SYSTEMTouchIN2 TechnologiesVitamin D 25 Hydroxyon 81-98-106498238683-hdhzaggwiziqdr D3 [Mass/Vol]19.9 ng/mLLow29.9 - PINF ng/mLBON [facility]RA TUCSONOnarbor [facility] HOSPITALProgression Labs [facility] HOSPITALComcorewell health gerber hospital on above: Reference Range: Vitamin D status Range Deficiency <20 ng/mL Mild Deficiency 20-30 ng/mL Sufficiency 30-100 ng/mL Toxicity >100 ng/mL Interpretation and review of laboratory resultsAbnoCoteau des Prairies HospitalCHEMISTRYOrdered By: SYSTEM SYSTEM on 23-44-1054Yjemp gap [Moles/Vol]11 mmol/LNormal6 - 16 mEq/LFTMC RemisolCalcium [Mass/Vol]9.2 mg/dLNormal8.9 - 11.1 mg/dLFT RemisolChloride [Moles/Vol]100 mmol/VDme282 - 111 mmol/LFTMC RemisolCO2 [Moles/Vol]28 mmol/BQfitjc15 - 31 mmol/LFTMC Remisol Creatinine [Mass/Vol]0.8 mg/dLNormal0.5 - 1.3 mg/dLFTMC RemisolGFR/1.73 sq M.predicted among blacks MDRD (S/P/Bld) [Vol rate/Area]mL/min/1.73 w5Ejwfpa >=59mL/min/1.73 m2FT Chem SGFR/1.73 sq M.predicted among non-blacks MDRD (S/P/Bld) [Vol rate/Area]mL/min/1.73 k9Agzmdw>=59mL/min/1.73 m2FT Chem S Glucose [Mass/Vol]180 mg/iVZygyzn97 - 199 mg/dLFTMC RemisolMagnesium [Mass/Vol] 2.4 mg/dLNormal1.3 - 2.4 mg/dLFTMC RemisolPotassium [Moles/Vol]4.2 mmol/LNormal 3.5 - 5.3 mmol/LFTMC RemisolSodium [Moles/Vol]135 mmol/LXfadol338 - 145 mmol/L [facility] RemisolUrea nitrogen [Mass/Vol]12 mg/dLNormal5 - 21 mg/dLFTMC RemisolUrea nitrogen/Creatinine [Mass ratio]15 mg/irTqjqpv95 - 20FTMC RemisolCHEMISTRY Ordered By: SYSTEM SYSTEM on 02-25-5039Bjqrmrcod [Mass/Vol]2.8 mg/dLHigh1.3 - 2.4 mg/dLSOUTHWESTERN MEDICAL [facility] – [facility] RemisolGlucose Glucometer (BldC) [Mass/Vol]Ordered By: José Sanchez on 25-78-1970Uvxslus [Mass/Vol]248 mg/dLKettering Health Preble Comment on above:Random Glucose Reference Range is dependent on time and content of last meal. Glucose of more than 200 mg/dL in a nonstressed, ambulatory subject supports the diagnosis of Diabetes Mellitus.Glucose Poct Glucometerson 31-25-1624Ogbhncv [Mass/Vol]248 mg/dLNoToledo Hospital Comment on above:Result Comment: Random Glucose Reference Range is dependent on time and content of last meal. Glucose of more than 200 mg/dL in a nonstressed, ambulatory subject supports the diagnosis of Diabetes Mellitus. PERFORMED BY: [facility] [address] [place] [address] PATHOLOGIST INTERACTIVE ACCOUNT MANAGER EZRA MCCLAIN M.D.Performed By: #### GLULS #### Point of Care testing ,Glucose [Mass/Vol]253 mg/dLNoToledo HospitalComment on above:Result Comment: Random Glucose Reference Range is dependent on time and content of last meal. Glucose of more than 200 mg/dL in a nonstressed, ambulatory subject supports the diagnosis of Diabetes Mellitus. PERFORMED BY: [facility] [address] [place] [address] PATHOLOGIST INTERACTIVE ACCOUNT MANAGER EZRA MCCLAIN M.D.Performed By: #### GLULS #### Point of Care testing ,Alanine aminotransferase [Enzymatic activity/volume] in Serum or PlasmaOrdered By: Marilyn Sun on 66-39-5465ZRJ [Catalytic activity/Vol]59 U/L7-52[facility] Health PrebleAlbumin [Mass/volume] in Serum or Plasma by Bromocresol green (BCG) dye binding methoOrdered By: Marilyn Sun on 52-38-6420Roognmj BCG dye [Mass/Vol]4.6 g/dL3.5-5.7FMartin Memorial HospitalAlkaline phosphatase [Enzymatic activity/volume] in Serum or PlasmaOrdered By: Marilyn Mejiaomar on 65-26-3660XHS [Catalytic activity/Vol]103 U/I73-724SpvtyxezzKettering Health PrebleAspartate aminotransferase [Enzymatic activity/volume] in Serum or PlasmaOrdered By: Obaydah Daromar on 42-91-2764HYM [Catalytic activity/Vol]80 U/M51-45GceyqkwwbKettering Health PrebleBasophils Auto (Bld) [#/Vol]Ordered By: Obaydah Daromar on 02-61-6709Anlnhngzc (Bld) [#/Vol]0.0 10*3/uL0.0-0.2FMartin Memorial HospitalBasophils/100 WBC Auto (Bld)Ordered By: Obaydah Daromar on 70-87-6062Fhwnouwvh/100 WBC (Bld)0.2 %.[facility] Bilirubin.total [Mass/volume] in Serum or PlasmaOrdered By: Obaydah Daromar on 93-98-3880Wzipfzvel [Mass/Vol]0.4 mg/dL0.3-1.0[facility] Calcium [Mass/volume] in Serum or PlasmaOrdered By: Obaydah Daromar on 35-65-9062Fmuepnw [Mass/Vol]9.1 mg/dL8.6-10.3FMartin Memorial Hospital Carbon dioxide, total [Moles/volume] in Serum or PlasmaOrdered By: Obaydah Daromar on 96-24-7055OL2 [Moles/Vol]29.3 mmol/L21.0-31.0[facility] PrebleChloride [Moles/volume] in Serum or PlasmaOrdered By: Obaydah Daromar on 64-75-4072Zgmonxpr [Moles/Vol]96 mmol/Y44-810YyiqzqrxwKettering Health PrebleComplete Blood Count Auto Diffon 73-75-6117Iddgtwvif (Bld) [#/Vol] 0.0 10*3/uLNormal0.0-0.2FMartin Memorial HospitalComment on above:Result Comment: PERFORMED BY: [facility] [place] [address] PATHOLOGIST INTERACTIVE ACCOUNT MANAGER EZRA MCCLAIN M.D.Performed By: #### GLULS #### Point of Care testing ,Basophils/100 WBC (Bld)0.2 %Normal.[facility] PrebleComment on above:Performed By: #### GLULS #### Point of Care testing ,Eosinophils (Bld) [#/Vol]0.0 10*3/uLNormal0.0-0.45K[facility] Health PrebleComment on above:Performed By: #### GLULS #### Point of Care testing ,Eosinophils/100 WBC (Bld)0.0 %Normal.[facility] PrebleComment on above:Performed By: #### GLULS #### Point of Care testing ,Erythrocyte distribution width (RBC) [Ratio]18.2 %High11.9-15.3FMartin Memorial HospitalComment on above:Performed By: #### GLULS #### Point of Care testing ,Hematocrit (Bld) [Volume fraction]38.3 %Ujuwla42.0-46.4FMartin Memorial HospitalComment on above:Performed By: #### GLULS #### Point of Care testing ,Hemoglobin (Bld) [Mass/Vol]12.7 g/yYBukzvz73.8-15.4FMartin Memorial HospitalComment on above:Performed By: #### GLULS #### Point of Care testing ,Lymphocytes (Bld) [#/Vol]0.5 10*3/uLLow1.00-4.8[facility] PrebleComment on above:Performed By: #### GLULS #### Point of Care testing ,Lymphocytes/100 WBC (Bld)6.4 %Normal.[facility] PrebleComment on above:Performed By: #### GLULS #### Point of Care testing ,MCH (RBC) [Entitic mass]31.7 jcRpbqkt11.7-34.3FMartin Memorial Hospital Comment on above:Performed By: #### GLULS #### Point of Care testing ,MCV (RBC) [Entitic vol]95.9 fFSgztnt63-265Dcwlnatzg [facility] Comment on above:Performed By: #### GLULS #### Point of Care testing ,Mean Corpuscular HGB Conc33.1 g/nLHuainp71.0-35.0[facility] PrebleComment on above:Performed By: #### GLULS #### Point of Care testing ,Monocytes (Bld) [#/Vol]0.3 10*3/uLNormal0.0-0.8[facility] PrebleComment on above:Performed By: #### GLULS #### Point of Care testing ,Monocytes/100 WBC (Bld)3.8 %Normal.[facility] PrebleComment on above:Performed By: #### GLULS #### Point of Care testing ,Neutrophils (Bld) [#/Vol]6.8 10*3/uLNormal1.8-7.7FMartin Memorial HospitalComment on above:Performed By: #### GLULS #### Point of Care testing ,Neutrophils/100 WBC (Bld)89.6 %Normal.[facility] PrebleComment on above:Performed By: #### GLULS #### Point of Care testing ,NRBC%0.0 /100{WBC}Normal0-0.5FMartin Memorial HospitalComment on above: Performed By: #### GLULS #### Point of Care testing ,Platelet mean volume (Bld) [Entitic vol]7.5 fLNormal6.3-10.7FMartin Memorial HospitalComment on above:Performed By: #### GLULS #### Point of Care testing ,Platelets (Bld) [#/Vol]201 10*3/kADelqpe035-349GbigyyxxhKettering Health PrebleComment on above:Performed By: #### GLULS #### Point of Care testing ,RBC (Bld) [#/Vol]4.00 10*6/uLNormal3.60-5.00[facility] Comment on above:Performed By: #### GLULS #### Point of Care testing ,WBC (Bld) [#/Vol]7.6 10*3/uLNormal3.8-11.6FMartin Memorial Hospital Comment on above:Performed By: #### GLULS #### Point of Care testing ,Comprehensive Metabolic Panelon 14-19-5474Jvznbxg [Mass/Vol]4.6 g/dLNormal 3.5-5.7FMartin Memorial HospitalComment on above:Performed By: #### GLULS #### Point of Care testing ,Albumin/Globulin [Mass ratio]1.7 {ratio}NormalKettering Health Preble Comment on above:Performed By: #### GLULS #### Point of Care testing ,ALP [Catalytic activity/Vol]103 U/QOanqoo34-908DkekftoovKettering Health PrebleComment on above:Performed By: #### GLULS #### Point of Care testing ,ALT [Catalytic activity/Vol]59 U/LHigh7-52[facility] Comment on above:Performed By: #### GLULS #### Point of Care testing ,Anion gap [Moles/Vol]Not performedNormal6.0-15.0[facility] PrebleComment on above:Performed By: #### GLULS #### Point of Care testing ,AST [Catalytic activity/Vol]80 U/VBgwl21-21BpyvdvqefKettering Health Preble Comment on above:Performed By: #### GLULS #### Point of Care testing ,Bilirubin [Mass/Vol]0.4 mg/dLNormal0.3-1.0[facility] Comment on above:Performed By: #### GLULS #### Point of Care testing ,Calcium [Mass/Vol]9.1 mg/dLNormal8.6-10.3FMartin Memorial Hospital Comment on above:Performed By: #### GLULS #### Point of Care testing ,Chloride [Moles/Vol]96 mmol/QKgh72-164KqcxidnxeKettering Health PrebleComment on above:Performed By: #### GLULS #### Point of Care testing ,CO2 [Moles/Vol]29.3 mmol/JDgvkzz72.0-31.0[facility] Comment on above:Performed By: #### GLULS #### Point of Care testing ,Creatinine [Mass/Vol]0.85 mg/dLNormal0.60-1.20[facility] Comment on above:Performed By: #### GLULS #### Point of Care testing ,Creatinine Clr Calc Emmztdds820.67NoTol[facility] Comment on above:Result Comment: PERFORMED BY: [facility] [address] [place] [address] PATHOLOGIST INTERACTIVE ACCOUNT MANAGER EZRA MCCLAIN M.D.Performed By: #### GLULS #### Point of Care testing ,GFR/1.73 sq M.predicted MDRD (S/P/Bld) [Vol rate/Area]mL/min/{1.73_m2}Normal [facility]:Performed By: #### GLULS #### Point of Care testing ,Globulin (S) [Mass/Vol]2.7 g/dLMagruder Memorial HospitalComment on above:Performed By: #### GLULS #### Point of Care testing ,Glucose [Mass/Vol]284 mg/lFSvzh74-359UtntndbflKettering Health PrebleComment on above:Result Comment: Random Glucose Reference Range is dependent on time and content of last meal. Glucose of more than 200 mg/dL in a nonstressed, ambulatory subject supports the diagnosis of Diabetes Mellitus. ADA recommended reference rangePerformed By: #### GLULS #### Point of Care testing ,PotassiumNormal3.5-5.1FMartin Memorial HospitalComment on above:Result Comment: Specimen hemolyzed, redraw requestedPerformed By: #### GLULS #### Point of Care testing ,Protein [Mass/Vol]7.3 g/dLNoal6.4-8.9K[facility]tering Health PrebleComment on above:Performed By: #### GLULS #### Point of Care testing ,Sodium [Moles/Vol]134 mmol/DFpk703-618RnuhuscwkKettering Health PrebleComment on above:Performed By: #### GLULS #### Point of Care testing ,Urea nitrogen [Mass/Vol]37 mg/dLSt. Joseph'S Hospital7-25[facility] Comment on above:Performed By: #### GLULS #### Point of Care testing ,Creatinine [Mass/volume] in Serum or PlasmaOrdered By: Marilyn Sun on 86-01-2427Cfwhboseus [Mass/Vol]0.85 mg/dL0.60-1.20[facility] PrebleEosinophils Auto (Bld) [#/Vol]Ordered By: Obartur Mejiaomar on 09-13-2022 Eosinophils (Bld) [#/Vol]0.0 10*3/uL0.0-0.45[facility] Eosinophils/100 WBC Auto (Bld)Ordered By: Obartur Mejiaomar on 09-13-2022 Eosinophils/100 WBC (Bld)0.0 %.[facility] PrebleErythrocyte distribution width Auto (RBC) [Ratio]Ordered By: Marilyn Mejiaomar on 09-13-2022 Erythrocyte distribution width (RBC) [Ratio]18.2 %11.9-15.3FMartin Memorial HospitalGlobulin Calc (S) [Mass/Vol]Ordered By: Marilyn Sun on 63-01-5649Oqieftoz (S) [Mass/Vol]2.7 g/dLKettering Health Preble Glucose Poct Glucometerson 36-30-6569Wtcgpxi1Gph8: Cleaned MeterNoToledo HospitalComment on above:Result Comment: PERFORMED BY: [facility] [address] [place] [address] PATHOLOGIST INTERACTIVE ACCOUNT MANAGER EZRA MCCLAIN M.D.Performed By: #### GLULS #### Point of Care testing ,Glucose [Mass/Vol]375 mg/dLMagruder Memorial HospitalComment on above:Result Comment: Random Glucose Reference Range is dependent on time and content of last meal. Glucose of more than 200 mg/dL in a nonstressed, ambulatory subject supports the diagnosis of Diabetes Mellitus.Performed By: #### GLULS #### Point of Care testing ,Glucose [Mass/Vol]360 mg/dLMagruder Memorial HospitalComment on above:Result Comment: Random Glucose Reference Range is dependent on time and content of last meal. Glucose of more than 200 mg/dL in a nonstressed, ambulatory subject supports the diagnosis of Diabetes Mellitus. PERFORMED BY: [place] [address] PATHOLOGIST INTERACTIVE ACCOUNT MANAGER EZRA MCCLAIN M.D.Performed By: #### CMP, CBC #### [place] [address] USAGlucose [Mass/Vol]348 mg/dLMagruder Memorial HospitalComment on above:Result Comment: Random Glucose Reference Range is dependent on time and content of last meal. Glucose of more than 200 mg/dL in a nonstressed, ambulatory subject supports the diagnosis of Diabetes Mellitus. PERFORMED BY: [place] [address] PATHOLOGIST INTERACTIVE ACCOUNT MANAGER EZRA MCCLAIN M.D.Performed By: #### GLULS #### Point of Care testing ,Mylqqpz3Zsl5: Cleaned MeterMagruder Memorial HospitalComment on above:Result Comment: PERFORMED BY: [place] [address] PATHOLOGIST INTERACTIVE ACCOUNT MANAGER EZRA MCCLAIN M.D.Performed By: #### GLULS #### Point of Care testing ,Glucose [Mass/Vol]261 mg/dLMagruder Memorial HospitalComment on above:Result Comment: Random Glucose Reference Range is dependent on time and content of last meal. Glucose of more than 200 mg/dL in a nonstressed, ambulatory subject supports the diagnosis of Diabetes Mellitus.Performed By: #### GLULS #### Point of Care testing ,Glucose [Mass/volume] in Serum or PlasmaOrdered By: Marilyn Sun on 33-72-3321Mcmxloj [Mass/Vol]284 mg/oC17-033Qnwagnqkt[address] [place] [address] Comment on above:ADA recommended reference rangeRandom Glucose Reference Range is dependent on time and content of last meal. Glucose of more than 200 mg/dL in a nonstressed, ambulatory subject supports the diagnosisof Diabetes Mellitus. Hematocrit Auto (Bld) [Volume fraction]Ordered By: Marilyn Sun on 09-13-2022 Hematocrit (Bld) [Volume fraction]38.3 %34.0-46.4FMartin Memorial HospitalHemoglobin [Mass/volume] in BloodOrdered By: Obsruthidacuca Mejiaomar on 09-13-2022 Hemoglobin (Bld) [Mass/Vol]12.7 g/dL11.8-15.4FMartin Memorial Hospital Laboratory - Chemistry and Chemistry - challengeOrdered By: Marilyn Mejiaomar on 94-83-6062SRK/1.73 sq M.predicted MDRD (S/P/Bld) [Vol rate/Area]mL/min/{1.73_m2} [facility] PrebleLeukocytes [#/volume] corrected for nucleated erythrocytes in Blood by Automated counOrdered By: Marilyn Mejiaomar on 09-13-2022 WBC corrected for nucl RBC Auto (Bld) [#/Vol]7.6 10*3/uL3.8-11.6FMartin Memorial HospitalLymphocytes Auto (Bld) [#/Vol]Ordered By: Obartur Mejiaomar on 82-98-5929Gzmpacfjsbx (Bld) [#/Vol]0.5 10*3/uL1.00-4.8[facility] PrebleLymphocytes/100 WBC Auto (Bld)Ordered By: Obsruthidacuca Mejiaomar on 94-91-2074Gssrzfadbrf/100 WBC (Bld)6.4 %.[facility] PrebleMC Auto (RBC) [Entitic mass]Ordered By: Marilyn Mejiaomar on 32-40-2510NSZ (RBC) [Entitic mass]31.7 pg24.7-34.3FMartin Memorial HospitalMCHC Auto (RBC) [Mass/Vol]Ordered By: Obsruthidacuca Mejiaomar on 35-13-8266SKJV (RBC) [Mass/Vol]33.1 g/dL32.0-35.0[facility] PrebleMCV Auto (RBC) [Entitic vol] Ordered By: Obartur Mejiaomar on 36-92-3532LZO (RBC) [Entitic vol]95.9 mC80-288 [facility] PrebleMonocytes Auto (Bld) [#/Vol]Ordered By: Obsruthidacuca Mejiaomar on 26-06-4517Zwuhjwnto (Bld) [#/Vol]0.3 10*3/uL0.0-0.8[facility] PrebleMonocytes/100 WBC Auto (Bld)Ordered By: Obaydah Daromar on 61-96-5393Xusyslwkw/100 WBC (Bld)3.8 %.[facility] Neutrophils Auto (Bld) [#/Vol]Ordered By: Obsruthidah Daromar on 09-13-2022 Neutrophils (Bld) [#/Vol]6.8 10*3/uL1.8-7.7FMartin Memorial Hospital Neutrophils/100 WBC Auto (Bld)Ordered By: Obsruthidah Daromar on 09-13-2022 Neutrophils/100 WBC (Bld)89.6 %.[facility] PrebleNo Panel InformationOrdered By: José Sanchez on 52-59-5116Zbvsvfj Glucose CommentGlu2: cleaned meterKettering Health PrebleNo Panel InformationOrdered By: Obartur Mejiaomar on 34-63-3303Aoekrbkg Creatinine Clearance (Ttmj500.67[facility] PrebleNucleated erythrocytes [Presence] in Blood by Automated countOrdered By: Obsruthidacuca Mejiaomar on 42-74-4109Azenpykzb RBC Auto Ql (Bld)0.0 /100{WBC}0-0.5FMartin Memorial HospitalPlatelet mean volume Auto (Bld) [Entitic vol]Ordered By: Obsruthidah Daromar on 71-10-4890Fiosxdkm mean volume (Bld) [Entitic vol]7.5 fL6.3-10.7FMartin Memorial HospitalPlatelets Auto (Bld) [#/Vol]Ordered By: Obsruthidah Daromar on 11-80-2562Mvhusiriv (Bld) [#/Vol]201 10*3/cZ880-880WrxtiwbluKettering Health PreblePotassium [Moles/volume] in Serum or PlasmaOrdered By: Obsruthidah Robertoomar on 59-40-0373Sidigkcnp [Moles/Vol]4.5 mmol/L3.5-5.1FMartin Memorial HospitalProtein [Mass/volume] in Serum or PlasmaOrdered By: Marilyn Mejiaomar on 75-67-6232Zqngrfk [Mass/Vol]7.3 g/dL6.4-8.9 [facility] PrebleRBC Auto (Bld) [#/Vol]Ordered By: Obartur Mejiaomar on 68-89-1995RTY (Bld) [#/Vol]4.00 10*6/uL3.60-5.00[facility] PrebleRedraw Potassiumon 54-79-0906Bwizcailj [Moles/Vol]4.5 mmol/LNormal 3.5-5.1FMartin Memorial HospitalComment on above:Order Comment: FIRST SPECMEN HEMOLYZEDResult Comment: PERFORMED BY: [facility] [address] [place] [address] PATHOLOGIST INTERACTIVE ACCOUNT MANAGER EZRA MCCLAIN M.D.Performed By: #### GLULS #### Point of Care testing ,Serum or plasma albumin/globulin mass ratioOrdered By: Marilyn Riosr on 79-70-7762Urftmdu/Globulin [Mass ratio]1.7 {ratio}Flower Hospitalerum or plasma anion gap determinationOrdered By: Marilyn Riosr on 33-80-7547Ybmkl gap [Moles/Vol]TNPKettering Health PrebleComment on above:Test not performedSodium [Moles/volume] in Serum or PlasmaOrdered By: Marilyn Mejiaomar on 68-74-9629Jnzgai [Moles/Vol]134 mmol/P986-294MxdqebnjjKettering Health PrebleUrea nitrogen [Mass/volume] in Serum or PlasmaOrdered By: Obartur Mejiaomar on 95-35-9658Wrou nitrogen [Mass/Vol]37 mg/dL7-25[facility] Health PrebleWBC Auto (Bld) [#/Vol]Ordered By: Obartur Mejiaomar on 98-96-7524HSR (Bld) [#/Vol]7.6 10*3/uL3.8-11.6FMartin Memorial Hospital Complete Blood Count Auto Diffon 98-68-4999Qbwcxqqqx (Bld) [#/Vol]0.0 10*3/uL Normal0.0-0.2FMartin Memorial HospitalComment on above:Result Comment: PERFORMED BY: [place] [address] PATHOLOGIST INTERACTIVE ACCOUNT MANAGER EZRA MCCLAIN M.D.Performed By: #### HS TROP #### [place] [address] USABasophils/100 WBC (Bld)0.2 %Normal.[facility] Health PrebleComment on above:Performed By: #### HS TROP #### [place] [address] USAEosinophils (Bld) [#/Vol]0.0 10*3/uLNormal0.0-0.45 [facility] PrebleComment on above:Performed By: #### HS TROP #### [place] [address] USAEosinophils/100 WBC (Bld)0.0 %Normal.[facility] PrebleComment on above:Performed By: #### HS TROP #### [place] [address] USAErythrocyte distribution width (RBC) [Ratio]17.5 %High 11.9-15.3FMartin Memorial HospitalComment on above:Performed By: #### HS TROP #### [place] [address] USAHematocrit (Bld) [Volume fraction]36.3 %Lxpyes56.0-46.4 [facility] PrebleComment on above:Performed By: #### HS TROP #### [place] [address] USAHemoglobin (Bld) [Mass/Vol]12.0 g/uCLrwlfp28.8-15.4 [facility] PrebleComment on above:Performed By: #### HS TROP #### [place] [address] USALymphocytes (Bld) [#/Vol]0.3 10*3/uLLow1.00-4.8[facility] PrebleComment on above:Performed By: #### HS TROP #### [facility] [address] [place] [address] USALymphocytes/100 WBC (Bld)4.1 %Normal.[facility] PrebleComment on above:Performed By: #### HS TROP #### [facility] [address] [place] [address] USAH (RBC) [Entitic mass]31.7 kqMvmdau18.7-34.3FMartin Memorial HospitalComment on above:Performed By: #### HS TROP #### [facility] [address] [place] [address] USAMCV (RBC) [Entitic vol]95.9 eWEskyrw76-728IuqumzpzbKettering Health PrebleComment on above:Performed By: #### HS TROP #### [facility] [address] [place] [address] USAMean Corpuscular HGB Conc33.1 g/zSXwbrvf57.0-35.0[facility] PrebleComment on above:Performed By: #### HS TROP #### [facility] [address] [place] [address] USAMonocytes (Bld) [#/Vol]0.3 10*3/uLNormal0.0-0.8[facility] PrebleComment on above:Performed By: #### HS TROP #### [facility] [address] [place] [address] USAMonocytes/100 WBC (Bld)3.8 %Normal.[facility] PrebleComment on above:Performed By: #### HS TROP #### [facility] [address] [place] [address] USANeutrophils (Bld) [#/Vol]6.3 10*3/uLNormal1.8-7.7FMartin Memorial HospitalComment on above:Performed By: #### HS TROP #### [facility] [address] [place] [address] USANeutrophils/100 WBC (Bld)91.9 %Normal.[facility] PrebleComment on above:Performed By: #### HS TROP #### [facility] [address] [place] [address] USANRBC%0.0 /100{WBC}Normal0-0.5FMartin Memorial HospitalComment on above:Performed By: #### HS TROP #### [place] [address] USAPlatelet mean volume (Bld) [Entitic vol]7.5 fLNormal 6.3-10.7FMartin Memorial HospitalComment on above:Performed By: #### HS TROP #### [place] [address] USAPlatelets (Bld) [#/Vol]177 10*3/iPFttepv338-881NjzbljqlkKettering Health PrebleComment on above:Performed By: #### HS TROP #### [place] [address] USARBC (Bld) [#/Vol]3.79 10*6/uLNormal3.60-5.00[facility] PrebleComment on above:Performed By: #### HS TROP #### [place] [address] USAWBC (Bld) [#/Vol]6.8 10*3/uLNormal3.8-11.6FMartin Memorial HospitalComment on above:Performed By: #### HS TROP #### [place] [address] USAComprehensive Metabolic Panelon 02-70-1465Gguebkz [Mass/Vol]4.1 g/dLNormal3.5-5.7FMartin Memorial HospitalComment on above:Performed By: #### HS TROP #### [place] [address] USAAlbumin/Globulin [Mass ratio]1.6 {ratio}NormalKettering Health PrebleComment on above:Performed By: #### HS TROP #### [facility] [address] [place] [address] USAALP [Catalytic activity/Vol]101 U/ZWuensu56-812XaofugpmiKettering Health PrebleComment on above:Performed By: #### HS TROP #### [facility] [address] [place] [address] USAALT [Catalytic activity/Vol]45 U/LNormal7-52[facility] Health PrebleComment on above:Performed By: #### HS TROP #### [facility] [address] [place] [address] USAAnion gap [Moles/Vol]12.8 mmol/LNormal6.0-15.0[facility] PrebleComment on above:Performed By: #### HS TROP #### [facility] [address] [place] [address] USAAST [Catalytic activity/Vol]55 U/LMyka71-61WqfegekiuKettering Health PrebleComment on above:Performed By: #### HS TROP #### [facility] [address] [place] [address] USABilirubin [Mass/Vol]0.4 mg/dLNormal0.3-1.0[facility] PrebleComment on above:Performed By: #### HS TROP #### [facility] [address] [place] [address] USACalcium [Mass/Vol]8.8 mg/dLNormal8.6-10.3FMartin Memorial HospitalComment on above:Performed By: #### HS TROP #### [facility] [address] [place] [address] USAChloride [Moles/Vol]96 mmol/ZWuq09-915VdkgufnxkKettering Health PrebleComment on above:Performed By: #### HS TROP #### [facility] [address] [place] [address] USACO2 [Moles/Vol]28.8 mmol/ANofruv16.0-31.0[facility] PrebleComment on above:Performed By: #### HS TROP #### [facility] [address] [place] [address] USACreatinine [Mass/Vol]0.90 mg/dLNormal0.60-1.20[facility] PrebleComment on above:Performed By: #### HS TROP #### [facility] [address] [place] [address] USACreatinine Clr Calc Jsrxyavn746.98NoToledo HospitalComment on above:Result Comment: PERFORMED BY: [place] [address] PATHOLOGIST INTERACTIVE ACCOUNT MANAGER EZRA MCCLAIN M.D.Performed By: #### HS TROP #### [place] [address] USAGFR/1.73 sq M.predicted MDRD (S/P/Bld) [Vol rate/Area] mL/min/{1.73_m2}NormalKettering Health PrebleComment on above: Performed By: #### HS TROP #### [place] [address] USAGlobulin (S) [Mass/Vol]2.5 g/dLNoToledo HospitalComment on above:Performed By: #### HS TROP #### [place] [address] USAGlucose [Mass/Vol]289 mg/pRBoyt32-520RxpygzilrKettering Health PrebleComment on above:Result Comment: Random Glucose Reference Range is dependent on time and content of last meal. Glucose of more than 200 mg/dL in a nonstressed, ambulatory subject supports the diagnosis of Diabetes Mellitus. ADA recommended reference rangePerformed By: #### HS TROP #### [place] [address] USAPotassium [Moles/Vol]4.6 mmol/LNormal3.5-5.1FMartin Memorial HospitalComment on above:Performed By: #### HS TROP #### [place] [address] USAProtein [Mass/Vol]6.6 g/dLNormal6.4-8.9[facility] PrebleComment on above:Performed By: #### HS TROP #### [facility] [address] [place] [address] USASodium [Moles/Vol]133 mmol/YUqz262-284KsvymhpnvKettering Health PrebleComment on above:Performed By: #### HS TROP #### [facility] [address] [place] [address] USAUrea nitrogen [Mass/Vol]29 mg/dLHigh7-25[facility] PrebleComment on above:Performed By: #### HS TROP #### [facility] [address] [place] [address] USAGlucose Poct Glucometerson 04-52-8805Bmylciw5Vop7: Cleaned MeterMagruder Memorial HospitalComment on above:Result Comment: PERFORMED BY: [place] [address] PATHOLOGIST INTERACTIVE ACCOUNT MANAGER EZRA MCCLAIN M.D.Performed By: #### CMP, CBC #### [place] [address] USAGlucose [Mass/Vol]203 mg/dLMagruder Memorial HospitalComment on above:Result Comment: Random Glucose Reference Range is dependent on time and content of last meal. Glucose of more than 200 mg/dL in a nonstressed, ambulatory subject supports the diagnosis of Diabetes Mellitus.Performed By: #### CMP, CBC #### [place] [address] TCFDmzarvr0Yex6: Cleaned MeterMagruder Memorial HospitalComment on above:Result Comment: PERFORMED BY: [place] [address] PATHOLOGIST INTERACTIVE ACCOUNT MANAGER EZRA MCCLAIN M.D.Performed By: #### GLULS #### Point of Care testing ,Glucose [Mass/Vol]331 mg/dLMagruder Memorial HospitalComment on above:Result Comment: Random Glucose Reference Range is dependent on time and content of last meal. Glucose of more than 200 mg/dL in a nonstressed, ambulatory subject supports the diagnosis of Diabetes Mellitus.Performed By: #### GLULS #### Point of Care testing ,Mxfzqes3Arf9: Cleaned [facility]ina HospitalComment on above:Result Comment: PERFORMED BY: [place] [address] PATHOLOGIST INTERACTIVE ACCOUNT MANAGER EZRA MCCLAIN M.D.Performed By: #### CMP, CBC #### [place] [address] USAGlucose [Mass/Vol]282 mg/dLMagruder Memorial HospitalComment on above:Result Comment: Random Glucose Reference Range is dependent on time and content of last meal. Glucose of more than 200 mg/dL in a nonstressed, ambulatory subject supports the diagnosis of Diabetes Mellitus.Performed By: #### CMP, CBC #### [place] [address] YGUAlddjuz0Tsl8: Cleaned [facility] HospitalComment on above:Result Comment: PERFORMED BY: [place] [address] PATHOLOGIST INTERACTIVE ACCOUNT MANAGER EZRA MCCLAIN M.D.Performed By: #### CMP, CBC #### [place] [address] USAGlucose [Mass/Vol]219 mg/dLMagruder Memorial HospitalComment on above:Result Comment: Random Glucose Reference Range is dependent on time and content of last meal. Glucose of more than 200 mg/dL in a nonstressed, ambulatory subject supports the diagnosis of Diabetes Mellitus.Performed By: #### CMP, CBC #### [place] [address] USAComplete Blood Count Auto Diffon 79-51-7006Nbevsldpn (Bld) [#/Vol]0.1 10*3/uLNormal0.0-0.2FMartin Memorial HospitalComment on above:Result Comment: PERFORMED BY: [place] [address] PATHOLOGIST INTERACTIVE ACCOUNT MANAGER EZRA MCCLAIN M.D.Performed By: #### CMP, CBC #### [facility] [address] [place] [id number] USABasophils/100 WBC (Bld)1.1 %Normal.[facility] Health PrebleComment on above:Performed By: #### CMP, CBC #### [facility] [address] [place] [address] USAEosinophils (Bld) [#/Vol]0.0 10*3/uLNormal0.0-0.45 [facility] PrebleComment on above:Performed By: #### CMP, CBC #### [facility] [address] [place] [address] USAEosinophils/100 WBC (Bld)0.0 %Normal.[facility] PrebleComment on above:Performed By: #### CMP, CBC #### [place] [address] USAErythrocyte distribution width (RBC) [Ratio]17.5 %High 11.9-15.3FMartin Memorial HospitalComment on above:Performed By: #### CMP, CBC #### [place] [address] USAHematocrit (Bld) [Volume fraction]38.9 %Twxfvh72.0-46.4 [facility] PrebleComment on above:Performed By: #### CMP, CBC #### [place] [address] USAHemoglobin (Bld) [Mass/Vol]12.7 g/hCRcidoc15.8-15.4 [facility] PrebleComcorewell health gerber hospital on above:Performed By: #### CMP, CBC #### [facility] [address] [place] [address] USALymphocytes (Bld) [#/Vol]0.3 10*3/uLLow1.00-4.8[facility] PrebleComcorewell health gerber hospital on above:Performed By: #### CMP, CBC #### [place] [id number] USALymphocytes/100 WBC (Bld)4.7 %Normal.[facility] Health PrebleComment on above:Performed By: #### CMP, CBC #### [facility] [address] [place] [address] USAH (RBC) [Entitic mass]31.7 ehQkluwc14.7-34.3FMartin Memorial HospitalComment on above:Performed By: #### CMP, CBC #### [place] [address] USAMCV (RBC) [Entitic vol]96.7 yAJjqrui40-959PdokpssxmKettering Health PrebleComment on above:Performed By: #### CMP, CBC #### [place] [address] USAMean Corpuscular HGB Conc32.8 g/gIJbxari35.0-35.0[facility] PrebleComment on above:Performed By: #### CMP, CBC #### [place] [address] USAMonocytes (Bld) [#/Vol]0.1 10*3/uLNormal0.0-0.8[facility] PrebleComment on above:Performed By: #### CMP, CBC #### [place] [address] USAMonocytes/100 WBC (Bld)0.9 %Normal.[facility] Health PrebleComment on above:Performed By: #### CMP, CBC #### [place] [address] USANeutrophils (Bld) [#/Vol]6.0 10*3/uLNormal1.8-7.7FMartin Memorial HospitalComment on above:Performed By: #### CMP, CBC #### [place] [address] USANeutrophils/100 WBC (Bld)93.3 %Normal.[facility] PrebleComment on above:Performed By: #### CMP, CBC #### [place] [address] USANRBC%0.2 /100{WBC}Normal0-0.5FMartin Memorial HospitalComment on above:Performed By: #### CMP, CBC #### [facility] [address] [place] [address] USAPlatelet mean volume (Bld) [Entitic vol]7.5 fLNormal 6.3-10.7FMartin Memorial HospitalComment on above:Performed By: #### CMP, CBC #### [facility] [address] [place] [address] USAPlatelets (Bld) [#/Vol]185 10*3/kWIagcrp029-237WzeuwffwiKettering Health PrebleComment on above:Performed By: #### CMP, CBC #### [place] [address] USARBC (Bld) [#/Vol]4.02 10*6/uLNormal3.60-5.00[facility] PrebleComment on above:Performed By: #### CMP, CBC #### [place] [address] USAWBC (Bld) [#/Vol]6.4 10*3/uLNormal3.8-11.6FMartin Memorial HospitalComment on above:Performed By: #### CMP, CBC #### [place] [address] USAComprehensive Metabolic Panelon 91-87-3283Gvbzsbi [Mass/Vol]4.5 g/dLNormal3.5-5.7FMartin Memorial HospitalComment on above:Performed By: #### CMP, CBC #### [facility] [address] [place] [address] USAAlbumin/Globulin [Mass ratio]1.5 {ratio}NormalKettering Health PrebleComment on above:Performed By: #### CMP, CBC #### [facility] [address] [place] [address] USAALP [Catalytic activity/Vol]130 U/WXard41-885LsksjhbzoKettering Health PrebleComment on above:Performed By: #### CMP, CBC #### [facility] [address] [place] [address] USAALT [Catalytic activity/Vol]59 U/LHigh7-52[facility] PrebleComment on above:Performed By: #### CMP, CBC #### [facility] [address] [place] [address] USAAnion gap [Moles/Vol]Not performedNormal6.0-15.0[facility] PrebleComment on above:Performed By: #### CMP, CBC #### [facility] [address] [place] [address] USAAST [Catalytic activity/Vol]90 U/YVkjy99-79VhrenwxgsKettering Health PrebleComment on above:Performed By: #### CMP, CBC #### [facility] [address] [place] [address] USABilirubin [Mass/Vol]0.5 mg/dLNormal0.3-1.0[facility] PrebleComment on above:Performed By: #### CMP, CBC #### [facility] [address] [place] [address] USACalcium [Mass/Vol]9.3 mg/dLNormal8.6-10.3FMartin Memorial HospitalComment on above:Performed By: #### CMP, CBC #### [facility] [address] [place] [address] USAChloride [Moles/Vol]94 mmol/JEyu52-050UevdflhptKettering Health PrebleComment on above:Performed By: #### CMP, CBC #### [facility] [address] [place] [address] USACO2 [Moles/Vol]28.7 mmol/MAhnhvz14.0-31.0[facility] PrebleComment on above:Performed By: #### CMP, CBC #### [facility] [address] [place] [address] USACreatinine [Mass/Vol]0.87 mg/dLNormal0.60-1.20[facility] PrebleComment on above:Performed By: #### CMP, CBC #### [facility] [address] [place] [address] USACreatinine Clr Calc Makaqjew417.46NoToledo HospitalComment on above:Result Comment: PERFORMED BY: [place] [address] PATHOLOGIST INTERACTIVE ACCOUNT MANAGER EZRA MCCLAIN M.D.Performed By: #### CMP, CBC #### [place] [address] USAGFR/1.73 sq M.predicted MDRD (S/P/Bld) [Vol rate/Area] mL/min/{1.73_m2}NormalKettering Health PrebleComment on above: Performed By: #### CMP, CBC #### [place] [address] USAGlobulin (S) [Mass/Vol]3.0 g/dLNoToledo HospitalComment on above:Performed By: #### CMP, CBC #### [place] [address] USAGlucose [Mass/Vol]222 mg/dLSignificant change xb53-628 [facility] PrebleComment on above:Result Comment: Random Glucose Reference Range is dependent on time and content of last meal. Glucose of more than 200 mg/dL in a nonstressed, ambulatory subject supports the diagnosis of Diabetes Mellitus. ADA recommended reference rangePerformed By: #### CMP, CBC #### [place] [address] USAPotassiumNormal3.5-5.1FMartin Memorial Hospital Comment on above:Result Comment: Specimen hemolyzed, redraw requestedPerformed By: #### CMP, CBC #### [place] [address] USAProtein [Mass/Vol]7.5 g/dLNormal6.4-8.9[facility] PrebleComment on above:Performed By: #### CMP, CBC #### [place] [address] USASodium [Moles/Vol]135 mmol/AGtx463-405EpxdqxsqdKettering Health PrebleComment on above:Performed By: #### CMP, CBC #### [facility] [address] [place] [address] USAUrea nitrogen [Mass/Vol]28 mg/dLSt. [facility]7-25K[facility]tering Health PrebleComment on above:Performed By: #### CMP, CBC #### [facility] [address] [id number] USAECH echo transthoracicon 67-54-2419NKT echo transthoracic [facility] Main [place] [address] [place] [address] Echocardiogram Signed Patient: Carmen Bledsoe MR#: [id number] 9 : 1960 Acct:[id number] Age/Sex: 61 / F ADM Date: 09/10/22 Loc: Room: [address] [place] [address] Type: ADM IN Attending Dr: Marilyn Sun [...] 0727 Signed By: Maikol Siddiqui MD 09/11/22 1155Mag[facility]uder Memorial HospitalGlucose Poct Glucometerson 48-73-4318Xrwpavs9Ffz4: Cleaned MeterNormal [facility] PrebleComment on above:Result Comment: PERFORMED BY: [place] [address] PATHOLOGIST INTERACTIVE ACCOUNT MANAGER EZRA MCCLAIN M.D.Performed By: #### CMP, CBC #### [place] [address] USAGlucose [Mass/Vol]236 mg/dLMagruder Memorial HospitalComment on above:Result Comment: Random Glucose Reference Range is dependent on time and content of last meal. Glucose of more than 200 mg/dL in a nonstressed, ambulatory subject supports the diagnosis of Diabetes Mellitus.Performed By: #### CMP, CBC #### [facility] [address] [place] [address] USAGlucose [Mass/Vol]289 mg/dLMagruder Memorial HospitalComment on above:Result Comment: Random Glucose Reference Range is dependent on time and content of last meal. Glucose of more than 200 mg/dL in a nonstressed, ambulatory subject supports the diagnosis of Diabetes Mellitus. PERFORMED BY: [place] [address] PATHOLOGIST INTERACTIVE ACCOUNT MANAGER EZRA MCCLAIN M.D.Performed By: #### HS TROP #### [facility] [address] [place] [address] USAGlucose [Mass/Vol]297 mg/dLMagruder Memorial HospitalComment on above:Result Comment: Random Glucose Reference Range is dependent on time and content of last meal. Glucose of more than 200 mg/dL in a nonstressed, ambulatory subject supports the diagnosis of Diabetes Mellitus. PERFORMED BY: [place] [address] PATHOLOGIST INTERACTIVE ACCOUNT MANAGER EZRA MCCLAIN M.D.Performed By: #### CMP, CBC #### [facility] [address] [place] [address] USAGlucose [Mass/Vol]226 mg/dLNoToledo HospitalComment on above:Result Comment: Random Glucose Reference Range is dependent on time and content of last meal. Glucose of more than 200 mg/dL in a nonstressed, ambulatory subject supports the diagnosis of Diabetes Mellitus. PERFORMED BY: [place] [address] PATHOLOGIST INTERACTIVE ACCOUNT MANAGER EZRA MCCLAIN M.D.Performed By: #### GLULS #### Point of Care testing ,Redraw Potassiumon 29-03-0723Ifwvcewas [Moles/Vol]4.5 mmol/LNormal3.5-5.1 [facility] PrebleComment on above:Result Comment: PERFORMED BY: [place] [address] PATHOLOGIST INTERACTIVE ACCOUNT MANAGER EZRA MCCLAIN M.D.Performed By: #### HS TROP #### [facility] [address] [place] [address] USATroponin I High Sensitivityon 43-14-3586Svxuzklj I High Sensitivity5.3 pg/mLNormal0.0-15.0[facility] PrebleComment on above:Result Comment: PERFORMED BY: [place] [address] PATHOLOGIST INTERACTIVE ACCOUNT MANAGER EZRA MCCLAIN M.D.Performed By: #### CMP, CBC #### [facility] [address] [place] [address] USAA1C with Estimated Average Gluon 88-14-6145Nhsetab [Mass/Vol]128 mg/dLNoToledo HospitalComment on above:Order Comment: Comment add onResult Comment: PERFORMED BY: [place] [address] PATHOLOGIST INTERACTIVE ACCOUNT MANAGER EZRA MCCLAIN M.D.Performed By: #### CMP, CBC #### [facility] [address] [place] [address] EBSDoM3y (Bld) [Mass fraction]6.1 %High4.3-5.6FMartin Memorial HospitalComment on above:Order Comment: Comment add onResult Comment: Increased risk for diabetes: 5.7 - 6.4 diabetes: >6.4 glycemic control for adults with diabetes: <7.0Performed By: #### CMP, CBC #### [facility] [address] [place] [address] USAActivated partial thromboplastin time (aPTT) in platelet poor plasma by coagulation aOrdered By: Joo Ramos on 58-14-1066bBYO Coag (PPP) [Time]31.2 s25.1-36.5FMartin Memorial HospitalAlanine aminotransferase [Enzymatic activity/volume] in Serum or PlasmaOrdered By: Joo Ramos on 00-61-7360JOT [Catalytic activity/Vol]50 U/L7-52K[facility] Health PrebleAlbumin [Mass/volume] in Serum or Plasma by Bromocresol green (BCG) dye binding methoOrdered By: Joo Ramos on 95-45-4315Tdgmlla BCG dye [Mass/Vol]4.4 g/dL3.5-5.7FMartin Memorial HospitalAlkaline phosphatase [Enzymatic activity/volume] in Serum or PlasmaOrdered By: Joo Ramos on 33-28-8615GHO [Catalytic activity/Vol]121 U/V54-310BbirqxsduKettering Health PrebleAspartate aminotransferase [Enzymatic activity/volume] in Serum or PlasmaOrdered By: Joo Ramos on 48-01-4655IDK [Catalytic activity/Vol]71 U/J51-11TmxxpqorkKettering Health PrebleB-Type Natriuretic Peptideon 71-71-6618Iipgkiceqoc peptide B (Bld) [Mass/Vol]6.0 pg/mLNormal5-100[facility] PrebleComment on above: Result Comment: PERFORMED BY: [facility] [address] [place] [address] PATHOLOGIST INTERACTIVE ACCOUNT MANAGER JIANLAN SUN M.D.Performed By: #### CMP, CBC #### [facility] [address] [place] [address] USABasic Metabolic Panelon 27-83-5119Gvscl gap [Moles/Vol] 13.7 mmol/LNormal6.0-15.0[facility] Health PrebleComment on above: Performed By: #### CMP, CBC #### [facility] [address] [place] [address] USACalcium [Mass/Vol]9.6 mg/dLNormal8.6-10.3FMartin Memorial HospitalComment on above:Performed By: #### CMP, CBC #### [facility] [address] [place] [address] USAChloride [Moles/Vol]99 mmol/DAybqyg00-321HoqxelwduKettering Health PrebleComment on above:Performed By: #### CMP, CBC #### [facility] [address] [place] [address] USACO2 [Moles/Vol]29.0 mmol/MAsbppg11.0-31.0[facility] Health PrebleComment on above:Performed By: #### CMP, CBC #### [place] [address] USACreatinine [Mass/Vol]0.83 mg/dLNormal0.60-1.20[facility] Health PrebleComment on above:Performed By: #### CMP, CBC #### [facility] [address] [place] [address] USACreatinine Clr Calc Fuhpnlrr218.50NormOhioHealth Arthur G.H. Bing, MD, Cancer CenterComment on above:Result Comment: PERFORMED BY: [place] [address] PATHOLOGIST INTERACTIVE ACCOUNT MANAGER EZRA MCCLAIN M.D.Performed By: #### CMP, CBC #### [place] [address] USAGFR/1.73 sq M.predicted MDRD (S/P/Bld) [Vol rate/Area] mL/min/{1.73_m2}NormalFirelands Regional Medical CenterComment on above: Performed By: #### CMP, CBC #### [facility] [address] [id number] USAGlucose [Mass/Vol]91 mg/aMFsshhx68-729RpboguwsvKettering Health PrebleComment on above:Result Comment: Random Glucose Reference Range is dependent on time and content of last meal. Glucose of more than 200 mg/dL in a nonstressed, ambulatory subject supports the diagnosis of Diabetes Mellitus. ADA recommended reference rangePerformed By: #### CMP, CBC #### [facility] [address] [place] [address] USAPotassium [Moles/Vol]4.7 mmol/LNormal3.5-5.1FMartin Memorial HospitalComment on above:Performed By: #### CMP, CBC #### [facility] [address] [place] [address] USASodium [Moles/Vol]137 mmol/SHqtvvp762-613LkzstipnwKettering Health PrebleComment on above:Performed By: #### CMP, CBC #### [facility] [address] [place] [address] USAUrea nitrogen [Mass/Vol]24 mg/dLNormal7-25K[facility] Health PrebleComment on above:Performed By: #### CMP, CBC #### [facility] [address] [place] [address] USABasophils Auto (Bld) [#/Vol]Ordered By: Joo Ramos on 20-50-2400Raadprmbq (Bld) [#/Vol]0.1 10*3/uL0.0-0.2FMartin Memorial HospitalBasophils/100 WBC Auto (Bld)Ordered By: Joo Ramos on 09-10-2022 Basophils/100 WBC (Bld)1.1 %.[facility] Health PrebleBilirubin Test strip Ql (U)Ordered By: Joo Ramos on 38-61-0635Ljggvmmaf Ql (U)Negative NegativeKettering Health PrebleBilirubin.direct [Mass/volume] in Serum or PlasmaOrdered By: Joo Ramos on 08-88-7760Ohqonchpm.direct [Mass/Vol]0.10 mg/dL0.03-0.18FMartin Memorial HospitalBilirubin.total [Mass/volume] in Serum or PlasmaOrdered By: Joo Ramos on 85-87-6338Vhkgdfmkn [Mass/Vol]0.4 mg/dL0.3-1.0[facility] PrebleBioFire Not Detectedon 09-10-2022 BioFire Not DetectedNot detectedNormalNot DetectElyria Memorial HospitalComment on above:Result Comment: This is a duplicate RP2.1 COVID (PCR) result to be used for statistical tracking purpose only. PERFORMED BY: [place] [address] PATHOLOGIST INTERACTIVE ACCOUNT MANAGER EZRA MCCLAIN M.D.Performed By: #### CMP, CBC #### [place] [address] USACOVID-19 Detected/Not DetectedOrdered By: Marilyn Sun on 82-98-6742OUHU-CoV-2 (COVID-19) RNA TERESO+non-probe Ql (Nph)Not detectedNot DetectElyria Memorial HospitalComment on above:This is a duplicate RP2.1 COVID (PCR) result to be used for statistical tracking purpose only. Calcium [Mass/volume] in Serum or PlasmaOrdered By: Joo Ramos on 09-10-2022 Calcium [Mass/Vol]9.6 mg/dL8.6-10.3FMartin Memorial HospitalCarbon dioxide, total [Moles/volume] in Serum or PlasmaOrdered By: Joo Ramos on 00-27-1228FT9 [Moles/Vol]29.0 mmol/L21.0-31.0[facility] Chloride [Moles/volume] in Serum or PlasmaOrdered By: Joo Ramos on 09-10-2022 Chloride [Moles/Vol]99 mmol/S93-653MqmjemsbnKettering Health PrebleCholesterol [Mass/volume] in Serum or PlasmaOrdered By: Marilyn Sun on 09-10-2022 Cholesterol [Mass/Vol]169 mg/hC178-269GqtrwxdhrKettering Health PrebleComment on above:Chol less than 200 mg/dl low riskChol 201-239 mg/dl borderline riskChol 240 mg/dl and greater high riskCholesterol in LDL Calc [Mass/Vol]Ordered By: Marilyn Sun on 52-01-9193Thsxdmlsqzy in LDL [Mass/Vol]62 mg/dL0-100[facility] PrebleComment on above:LDL ATP III CLASSIFICATIONLDL less than 100 mg/dL OptimalLDL 100-129 mg/dL Near or above vtzdscsGNG952-519 mg/dL Borderline highLDL 160-189 mg/dL HighLDL greater than 189 mg/dL Very high Cholesterol in VLDL Calc [Mass/Vol]Ordered By: Marilyn Sun on 09-10-2022 Cholesterol in VLDL [Mass/Vol]34 mg/dLKettering Health PrebleColor Auto (U)Ordered By: Joo Ramos on 98-69-8244Zumhz (U)YellowYellowKettering Health PrebleComplete Blood Count Auto Diffon 81-75-0362Kvoscozdm (Bld) [#/Vol]0.1 10*3/uLNormal0.0-0.2FMartin Memorial HospitalComment on above:Result Comment: PERFORMED BY: [place] [address] PATHOLOGIST INTERACTIVE ACCOUNT MANAGER EZRA MCCLAIN M.D.Performed By: #### CMP, CBC #### [facility] [address] [place] [address] USABasophils/100 WBC (Bld)1.1 %Normal.[facility] PrebleComment on above:Performed By: #### CMP, CBC #### [facility] [address] [id number] USAEosinophils (Bld) [#/Vol]0.1 10*3/uLNormal0.0-0.45 [facility] PrebleComment on above:Performed By: #### CMP, CBC #### [facility] [address] [place] [address] USAEosinophils/100 WBC (Bld)1.6 %Normal.[facility] Health PrebleComment on above:Performed By: #### CMP, CBC #### [facility] [address] [place] [address] USAErythrocyte distribution width (RBC) [Ratio]17.5 %High 11.9-15.3FMartin Memorial HospitalComment on above:Performed By: #### CMP, CBC #### [facility] [address] [place] [address] USAHematocrit (Bld) [Volume fraction]37.7 %Ozurkc55.0-46.4 [facility] PrebleComment on above:Performed By: #### CMP, CBC #### [facility] [address] [place] [address] USAHemoglobin (Bld) [Mass/Vol]12.5 g/xQJfonbo23.8-15.4 [facility] PrebleComcorewell health gerber hospital on above:Performed By: #### CMP, CBC #### [place] [address] USALymphocytes (Bld) [#/Vol]1.1 10*3/uLNormal1.00-4.8 [facility] PrebleComment on above:Performed By: #### CMP, CBC #### [place] [id number] USALymphocytes/100 WBC (Bld)21.5 %Normal.[facility] PrebleComment on above:Performed By: #### CMP, CBC #### [place] [id number] USAMCH (RBC) [Entitic mass]31.8 jlMyqbey34.7-34.3FMartin Memorial HospitalComment on above:Performed By: #### CMP, CBC #### [facility] [address] [id number] USAMCV (RBC) [Entitic vol]96.1 kTYhgvdk77-160QoihfcwkmKettering Health PrebleComcorewell health gerber hospital on above:Performed By: #### CMP, CBC #### [place] [id number] USAMean Corpuscular HGB Conc33.1 g/xKSrcexh69.0-35.0[facility] PrebleComment on above:Performed By: #### CMP, CBC #### [facility] [address] [place] [address] USAMonocytes (Bld) [#/Vol]0.3 10*3/uLNormal0.0-0.8[facility] PrebleComment on above:Performed By: #### CMP, CBC #### [facility] [address] [place] [address] USAMonocytes/100 WBC (Bld)18.14 %Normal0.00-20.00[facility] Health PrebleComcorewell health gerber hospital on above:Performed By: #### CMP, CBC #### [facility] [address] [place] [address] USAMonocytes/100 WBC (Bld)5.1 %Normal.[facility] Health PrebleComment on above:Performed By: #### CMP, CBC #### [facility] [address] [place] [address] USANeutrophils (Bld) [#/Vol]3.7 10*3/uLNormal1.8-7.7FMartin Memorial HospitalComment on above:Performed By: #### CMP, CBC #### [facility] [address] [place] [address] USANeutrophils/100 WBC (Bld)70.7 %Normal.[facility] Health PrebleComment on above:Performed By: #### CMP, CBC #### [facility] [address] [place] [address] USANRBC%0.3 /100{WBC}Normal0-0.5FMartin Memorial HospitalComment on above:Performed By: #### CMP, CBC #### [facility] [address] [place] [address] USAPlatelet mean volume (Bld) [Entitic vol]7.2 fLNormal 6.3-10.7FMartin Memorial HospitalComment on above:Performed By: #### CMP, CBC #### [facility] [address] [place] [address] USAPlatelets (Bld) [#/Vol]180 10*3/sPExrdpg287-322VsxvffhxvKettering Health PrebleComment on above:Performed By: #### CMP, CBC #### [facility] [address] [place] [address] USARBC (Bld) [#/Vol]3.92 10*6/uLNormal3.60-5.00[facility] PrebleComment on above:Performed By: #### CMP, CBC #### [facility] [address] [place] [address] USAWBC (Bld) [#/Vol]5.2 10*3/uLNormal3.8-11.6FMartin Memorial HospitalComment on above:Performed By: #### CMP, CBC #### [facility] [address] [place] [address] USACreatine Kinaseon 31-56-3061HX [Catalytic activity/Vol]39 U/NAvprtm11-840MhrjnzemcKettering Health PrebleComment on above:Performed By: #### CMP, CBC #### [facility] [address] [place], [place] [address] USACreatine kinase [Enzymatic activity/volume] in Serum or PlasmaOrdered By: Joo Ramos on 23-36-3143AT [Catalytic activity/Vol]39 U/L [facility] PrebleCreatinine [Mass/volume] in Serum or PlasmaOrdered By: Joo Ramos on 43-14-3602Viahtucoik [Mass/Vol]0.83 mg/dL 0.60-1.20[facility] PrebleECG 12 lead ECGon 25-18-4499WMC 12 lead [facility] [address] Electrocardiograph Report Signed Patient: Carmen Bledsoe MR#: [id number] 9 : 1960 Acct:[id number] Age/Sex: 61 / F ADM Date: 09/10/22 Loc: Room: [address] [place] [address] Type: ADM IN Attending Dr: Marilyn Sun [...] Signed By Maikol Siddiqui MD 0 09/11/22 0653[facility] HospitalEC 12 lead [facility]GAKR[facility] [address] Electrocardiograph Report Signed Patient: Carmen Bledsoe MR#: [id number] 9 : 1960 Acct:[id number] Age/Sex: 61 / F ADM Date: 09/10/22 Loc: Room: [address] [place] [address] Type: ADM IN Attending Dr: Marilyn Sun [...] ECGs available Confirmed by Joo Ramos DO ([id number]) on 09/10/2022 6:56:24 PM Referred By: Electronically Signed By:Joo Ramos DO Transcribed By: MUS Signed By Joo Ramos DO [address] [place], [place] [address]Eosinophils Auto (Bld) [#/Vol] Ordered By: Joo Ramos on 46-83-3222Yyhhwjzzron (Bld) [#/Vol]0.1 10*3/uL 0.0-0.45[facility] Health PrebleEosinophils/100 WBC Auto (Bld)Ordered By: Joo Ramos on 42-59-6626Izeiizqncnk/100 WBC (Bld)1.6 %.[facility] Health PrebleErythrocyte distribution width Auto (RBC) [Ratio]Ordered By: Joo Ramos on 42-54-3450Xukwzamxngt distribution width (RBC) [Ratio]17.5 %11.9-15.3 [facility] Health PrebleGlobulin Calc (S) [Mass/Vol]Ordered By: Joo Ramos on 58-68-0858Hwlcpgsc (S) [Mass/Vol]2.7 g/dLKettering Health PrebleGlucose Poct Glucometerson 52-32-8364Hpmitdx [Mass/Vol]188 mg/dLNormal [facility] PrebleComment on above:Result Comment: Random Glucose Reference Range is dependent on time and content of last meal. Glucose of more than 200 mg/dL in a nonstressed, ambulatory subject supports the diagnosis of Diabetes Mellitus. PERFORMED BY: [place] [id number] PATHOLOGIST INTERACTIVE ACCOUNT MANAGER EZRA MCCLAIN M.D.Performed By: #### GLULS #### Point of Care testing ,Glucose [Mass/Vol]118 mg/dLNoToledo HospitalComment on above:Result Comment: Random Glucose Reference Range is dependent on time and content of last meal. Glucose of more than 200 mg/dL in a nonstressed, ambulatory subject supports the diagnosis of Diabetes Mellitus. PERFORMED BY: [address] [address] PATHOLOGIST INTERACTIVE ACCOUNT MANAGER EZRA MCCLAIN M.D.Performed By: #### GLULS #### Point of Care testing ,Glucose [Mass/volume] in Serum or PlasmaOrdered By: Joo Ramos on 09-10-2022 Glucose [Mass/Vol]91 mg/sZ34-070PqhjgrbpkKettering Health PrebleComment on above:ADA recommended reference rangeRandom Glucose Reference Range is dependent on time and content of last meal. Glucose of more than 200 mg/dL in a nonstressed, ambulatory subject supports the diagnosisof Diabetes Mellitus. Glucose mean value [Mass/volume] in Blood Estimated from glycated hemoglobin Ordered By: Marilyn Sun on 75-50-2412Alorbfb glucose Estimated from glycated hemoglobin (Bld) [Mass/Vol]128 mg/dLKettering Health PrebleHematocrit Auto (Bld) [Volume fraction]Ordered By: Joo Ramos on 10-67-2520Cnieewhdxz (Bld) [Volume fraction]37.7 %34.0-46.4FMartin Memorial Hospital Hemoglobin A1c percentageOrdered By: Marilyn Sun on 00-69-0213GlV5n (Bld) [Mass fraction]6.1 %4.3-5.6FMartin Memorial HospitalComment on above: Increased risk for diabetes: 5.7 - 6.4diabetes: >6.4glycemic control for adults with diabetes: <7.0Hemoglobin [Mass/volume] in BloodOrdered By: Joo Ramos on 08-04-8428Qjqcyjejzi (Bld) [Mass/Vol]12.5 g/dL11.8-15.4FMartin Memorial HospitalHepatic Panelon 67-45-1314Fukrjzn [Mass/Vol]4.4 g/dLNormal3.5-5.7 [facility] PrebleComment on above:Performed By: #### CMP, CBC #### [facility] [address] [place] [address] USAAlbumin/Globulin [Mass ratio]1.6 {ratio}NormalKettering Health PrebleComment on above:Performed By: #### CMP, CBC #### [facility] [address] [place] [address] USAALP [Catalytic activity/Vol]121 U/SYeqd14-562IzboabynkKettering Health PrebleComment on above:Performed By: #### CMP, CBC #### [facility] [address] [place] [address] USAALT [Catalytic activity/Vol]50 U/LNormal7-52[facility] PrebleComment on above:Performed By: #### CMP, CBC #### [facility] [address] [place] [address] USAAST [Catalytic activity/Vol]71 U/QPyrk81-80MuotrhkulKettering Health PrebleComment on above:Performed By: #### CMP, CBC #### [facility] [address] [place] [address] USABilirubin [Mass/Vol]0.4 mg/dLNormal0.3-1.0[facility] PrebleComment on above:Performed By: #### CMP, CBC #### [facility] [address] [place] [address] USABilirubin,Indirect0.3 mg/dLNormalKettering Health PrebleComment on above:Performed By: #### CMP, CBC #### [facility] [address] [place] [address] USABilirubin.indirect [Mass/Vol]0.10 mg/dLNormal0.03-0.18 [facility] PrebleComment on above:Performed By: #### CMP, CBC #### [facility] [address] [place] [address] USAGlobulin (S) [Mass/Vol]2.7 g/dLNormalKettering Health PrebleComment on above:Performed By: #### CMP, CBC #### [facility] [address] [place] [address] USAProtein [Mass/Vol]7.1 g/dLNormal6.4-8.9[facility] PrebleComment on above:Performed By: #### CMP, CBC #### [facility] [address] [place] [address] USAKetones Auto test strip (U) [Mass/Vol]Ordered By: Joo Ramos on 49-26-6966Dgtpuju (U) [Mass/Vol]NegativeNegativeKettering Health PrebleLaboratory - Chemistry and Chemistry - challengeOrdered By: Joo Ramos on 24-94-7051MXW/1.73 sq M.predicted MDRD (S/P/Bld) [Vol rate/Area] mL/min/{1.73_m2}[facility] PrebleLaboratory - CoagulationOrdered By: Joo Ramos on 46-77-4534OD Coag (PPP) [Time]11.8 s9.0-12.9[facility] Health PrebleLeukocytes [#/volume] corrected for nucleated erythrocytes in Blood by Automated counOrdered By: Joo Ramos on 58-51-0464HUE corrected for nucl RBC Auto (Bld) [#/Vol]5.2 10*3/uL3.8-11.6FMartin Memorial HospitalLipid Panelon 51-12-8478Nwjjrcwytbi [Mass/Vol]169 mg/dLNormal 140-200K[facility] PrebleComment on above:Order Comment: Comment add onResult Comment: Chol less than 200 mg/dl low risk Chol 201-239 mg/dl borderline risk Chol 240 mg/dl and greater high riskPerformed By: #### CMP, CBC #### [facility] [address] [place] [address] USACholesterol in HDL [Mass/Vol]73 mg/oQMnbchy06-18EeubjvjtyKettering Health PrebleComment on above:Order Comment: Comment add onResult Comment: HDL CHOL ATP-III CLASSIFICATION Cardiovascular Risk HDL > or equal to 60 mg/dL LOW HDL < 40 mg/dL HIGHPerformed By: #### CMP, CBC #### [facility] [address] [place] [address] USACholesterol.total/Cholesterol in HDL [Mass ratio]2.3 {ratio}Normal<5.0[facility] PrebleComment on above:Order Comment: Comment add onResult Comment: PERFORMED BY: [facility] [address] [place] [address] PATHOLOGIST INTERACTIVE ACCOUNT MANAGER EZRA MCCLAIN M.D.Performed By: #### CMP, CBC #### [facility] [address] [place] [address] USALDL Cholesterol,Leglnlpbfr24 mg/dLNormal0-100[facility] PrebleComment on above:Order Comment: Comment add onResult Comment: LDL ATP III CLASSIFICATION LDL less than 100 mg/dL Optimal LDL 100-129 mg/dL Near or above optimal LDL 130-159 mg/dL Borderline high LDL 160-189 mg/dL High LDL greater than 189 mg/dL Very highPerformed By: #### CMP, CBC #### [facility] [address] [place] [address] USATriglyceride w/Koelnc858 mg/dLHigh0-149[facility] PrebleComment on above:Order Comment: Comment add onResult Comment: TRIG ATP III CLASSIFICATION TRIG less than 150 mg/dL Normal TRIG 150-199 mg/dL Borderline high TRIG 200-500 mg/dL High TRIG greater than 500 mg/dL Very high Standard traceable to the Center for Disease Conrtrol and Prevention (CDC) test method.Performed By: #### CMP, CBC #### [facility] [address] [place] [address] USAVLDL HBLQVCKKGDI25 mg/dLNormalKettering Health PrebleComment on above:Order Comment: Comment add onPerformed By: #### CMP, CBC #### [facility] [address] [place] [address] USALymphocytes Auto (Bld) [#/Vol]Ordered By: Joo Ramos on 96-17-4168Dvupwupmntn (Bld) [#/Vol]1.1 10*3/uL1.00-4.8K[facility] Health PrebleLymphocytes/100 WBC Auto (Bld)Ordered By: Joo Ramos on 09-10-2022 Lymphocytes/100 WBC (Bld)21.5 %.[facility] Auto (RBC) [Entitic mass]Ordered By: Joo Ramos on 46-07-7763IWL (RBC) [Entitic mass]31.8 pg24.7-34.3FMetroHealth Main Campus Medical CenterHC Auto (RBC) [Mass/Vol]Ordered By: Joo Ramos on 23-68-1819FJJR (RBC) [Mass/Vol]33.1 g/dL32.0-35.0[facility] HospitalV Auto (RBC) [Entitic vol]Ordered By: Joo Ramos on 97-63-7505IGP (RBC) [Entitic vol]96.1 oV24-841SeoihdrlfKettering Health Preble Monocyte distribution width [Entitic volume] in Blood by AutomatedOrdered By: Joo Ramos on 75-81-6257Gvdzqhui distribution width Auto (Bld) [Entitic vol] 18.14 %0.00-20.00[facility] Health PrebleMonocytes Auto (Bld) [#/Vol] Ordered By: Joo Ramos on 09-94-8086Cadcpcojy (Bld) [#/Vol]0.3 10*3/uL0.0-0.8 [facility] PrebleMonocytes/100 WBC Auto (Bld)Ordered By: Joo Ramos on 66-23-7114Vqdruilln/100 WBC (Bld)5.1 %.[facility] PrebleNatriuretic peptide B [Mass/Vol]Ordered By: Joo Ramos on 09-10-2022 Natriuretic peptide B (Bld) [Mass/Vol]6.0 pg/mL5-100[facility] PrebleNeutrophils Auto (Bld) [#/Vol]Ordered By: Joo Ramos on 09-10-2022 Neutrophils (Bld) [#/Vol]3.7 10*3/uL1.8-7.7FMartin Memorial Hospital Neutrophils/100 WBC Auto (Bld)Ordered By: Joo Ramos on 09-10-2022 Neutrophils/100 WBC (Bld)70.7 %.[facility] PrebleNitrite Test strip Ql (U)Ordered By: Joo Ramos on 14-32-2950Lnknlnp Ql (U)NegativeNegative [facility] PrebleNo Panel InformationOrdered By: Joo Ramos on 01-42-6108Ntrvkage Creatinine Clearance (Vvwv621.50[facility] PrebleNucleated erythrocytes [Presence] in Blood by Automated countOrdered By: Joo Ramos on 20-65-4798Etajogaml RBC Auto Ql (Bld)0.3 /100{WBC}0-0.5FMartin Memorial HospitalPartial Thromboplastin Timeon 20-52-6284oTCP Coag (Bld) [Time]31.2 vYstfbm30.1-36.5FMartin Memorial HospitalComment on above: Result Comment: PERFORMED BY: [facility] [address] [place] [address] PATHOLOGIST INTERACTIVE ACCOUNT MANAGER EZRA MCCLAIN M.D.Performed By: #### CMP, CBC #### [place] [address] USAPlatelet mean volume Auto (Bld) [Entitic vol]Ordered By: Joo Ramos on 38-63-3728Cgzpymzq mean volume (Bld) [Entitic vol]7.2 fL6.3-10.7 [facility] PreblePlatelet poor plasma international normalized ratio (INR) by coagulation assay (relatOrdered By: Joo Ramos on 16-33-5309PYV Coag (PPP) [Relative time]1.0 {INR}[facility] PrebleComment on above:INR Therapeutic Range A) Pre- and [...] Joo Ramos on 09-10-2022 Platelets (Bld) [#/Vol]180 10*3/sE526-102SgztzfgaeKettering Health Preble Potassium [Moles/volume] in Serum or PlasmaOrdered By: Joo Ramos on 09-10-2022 Potassium [Moles/Vol]4.7 mmol/L3.5-5.1FMartin Memorial HospitalProtein Auto test strip (U) [Mass/Vol]Ordered By: Joo Ramos on 26-26-9109Edmirid (U) [Mass/Vol]NegativeNegativeKettering Health PrebleProtein [Mass/volume] in Serum or PlasmaOrdered By: Joo Ramos on 63-58-4835Peqljcq [Mass/Vol]7.1 g/dL6.4-8.9[facility] PrebleProthrombin Time INRon 54-06-1468QHF Coag (PPP) [Relative time]1.0 {INR}[facility] Comment on above:Result Comment: INR Therapeutic Range [...] - 4.5Performed By: #### CMP, CBC #### [address] [address] USAPT Coag (PPP) [Time]11.8 sNormal9.0-12.9[facility] PrebleComment on above:Performed By: #### CMP, CBC #### [address] [address] USARBC Auto (Bld) [#/Vol]Ordered By: Joo Ramos on 34-01-8874KER (Bld) [#/Vol]3.92 10*6/uL3.60-5.00[facility] PrebleRespiratory (Upper) Panel, PCRon 05-66-9297Ejqnbivhdkk (Upper) Panel, PCR Adenovirus Not detected Bordetella [...] COVID-19 Detected/Not Detected Not detected PERFORMED BY: [place] [address] PATHOLOGIST INTERACTIVE ACCOUNT MANAGER EZRA MCCLAIN M.D.Mag[facility]uder [facility] HospitalComment on above: Performed By: #### CMP, CBC #### [facility] [address] [place], [place] [address] USARespiratory pathogens DNA and RNA panel - Nasopharynx by TERESO with non-probe detectionOrdered By: Marilyn Sun on 87-97-8986Dhwqwzsusqb pathogens DNA and RNA panel TERESO+non-probe (Nph)Flower Hospitalerum or plasma albumin/globulin mass ratioOrdered By: Joo Ramos on 01-65-2594Qqjgvfk/Globulin [Mass ratio]1.6 {ratio}Flower Hospitalerum or plasma anion gap determinationOrdered By: Joo Ramos on 89-75-4163Mwlth gap [Moles/Vol]13.7 mmol/L6.0-15.0Flower Hospitalerum or plasma high density lipoprotein (HDL) cholesterol measurement Ordered By: Marilyn Sun on 01-56-8071Maoitxrqidt in HDL [Mass/Vol]73 mg/dL 35-85[facility] PrebleComment on above:HDL CHOL ATP-III CLASSIFICATION Cardiovascular RiskHDL > or equal to 60 mg/dL LOWHDL < 40 mg/dL HIGHSerum or plasma non-glucuronidated bilirubin measurement (mass/volume) Ordered By: Joo Ramos on 14-47-1396Njnmyyaqz.indirect [Mass/Vol]0.3 mg/dL Flower Hospitalerum or plasma total cholesterol/high density lipoprotein (HDL) cholesterol mass ratOrdered By: Marilyn Sun on 09-10-2022 Cholesterol.total/Cholesterol in HDL [Mass ratio]2.3 {ratio}<5.0Flower Hospitalodium [Moles/volume] in Serum or PlasmaOrdered By: Joo Ramos on 94-61-6143Lewixe [Moles/Vol]137 mmol/H752-956GkolhozyqFlower Hospitalpecific gravity Auto test strip (U) [Rel density]Ordered By: Joo Ramos on 67-86-2110Dlnckjqn gravity (U) [Rel density]1.0051.001-1.030 [facility] PrebleTriglyceride [Mass/volume] in Serum or Plasma Ordered By: Marilyn Sun on 49-30-9832Jtyxztrqblgg [Mass/Vol]172 mg/dL0-149 [facility] PrebleComment on above:TRIG ATP III CLASSIFICATIONTRIG less than 150 mg/dL NormalTRIG 150-199 mg/dL Borderline highTRIG 200-500 mg/dL High TRIG greater than 500 mg/dL Very highStandard traceable to the Center for Disease Conrtrol and Prevention (CDC) test method. Troponin I High Sensitivityon 93-50-4594Ogmzajxg I High Sensitivity6.3 pg/mL Normal0.0-15.0[facility] PrebleComment on above:Result Comment: PERFORMED BY: [place] [address] PATHOLOGIST INTERACTIVE ACCOUNT MANAGER EZRA MCCLAIN M.D.Performed By: #### HS TROP #### [facility] [address] [place] [address] USATroponin I High Sensitivity6.6 pg/mLNormal0.0-15.0 [facility] PrebleComment on above:Result Comment: PERFORMED BY: [place] [address] PATHOLOGIST INTERACTIVE ACCOUNT MANAGER EZRA MCCLAIN M.D.Performed By: #### HS TROP #### [place] [address] USATroponin I High Sensitivity6.3 pg/mLNormal0.0-15.0 [facility] PrebleComment on above:Result Comment: PERFORMED BY: [place] [address] PATHOLOGIST INTERACTIVE ACCOUNT MANAGER EZRA MCCLAIN M.D.Performed By: #### CMP, CBC #### [facility] [address] [place], [place] [address] USATroponin I.cardiac [Mass/volume] in Serum or Plasma by Detection limit <= 0.01 ng/Ordered By: Marilyn Sun on 21-63-3632Enqtyunv I.cardiac DL <= 0.01 ng/mL [Mass/Vol]5.3 pg/mL0.0-15.0[facility] PrebleTroponin I.cardiac [Mass/volume] in Serum or Plasma by Detection limit <= 0.01 ng/Ordered By: Joo Ramos on 28-31-0930Qmcombxd I.cardiac DL <= 0.01 ng/mL [Mass/Vol]6.3 pg/mL0.0-15.0[facility] PrebleUrea nitrogen [Mass/volume] in Serum or PlasmaOrdered By: Joo Ramos on 15-76-8280Hqko nitrogen [Mass/Vol]24 mg/dL7-25[facility] PrebleUrinalysison 21-64-0551Htldmtxyht (U)ClearNormalClearKettering Health PrebleComment on above:Order Comment: Name Collection Type:: Clean-Voided MidstreamPerformed By: #### CMP, CBC #### [facility] [address] [place], [place] [address] USABilirubin,UrineNegativeNormalNegativeKettering Health PrebleComment on above:Order Comment: Name Collection Type:: Clean- Voided MidstreamPerformed By: #### CMP, CBC #### [facility] [address] [place], [place] [address] USAColor (U)YellowNormalYellowKettering Health PrebleComment on above:Order Comment: Name Collection Type:: Clean-Voided MidstreamPerformed By: #### CMP, CBC #### [facility] [address] [place], [place] [address] USAGlucose Ql (U)NormalNormalNormOhioHealth Arthur G.H. Bing, MD, Cancer CenterComment on above:Order Comment: Name Collection Type:: Clean-Voided MidstreamPerformed By: #### CMP, CBC #### [facility] [address] [place] [address] USAKetones Ql (U)NegativeNormalNegativeKettering Health PrebleComment on above:Order Comment: Name Collection Type:: Clean- Voided MidstreamPerformed By: #### CMP, CBC #### [facility] [address] [place], [place] [address] USALeukocyte esterase Test strip Ql (U)NegativeNormalNegBluffton HospitalComment on above:Order Comment: Name Collection Type:: Clean-Voided MidstreamPerformed By: #### CMP, CBC #### [facility] [address] [place] [address] USANitrite,UrineNegativeNormalNegativeKettering Health PrebleComment on above:Order Comment: Name Collection Type:: Clean- Voided MidstreamPerformed By: #### CMP, CBC #### [place] [id number] USAOccult Blood,UrineNegativeNormalNegWadsworth-Rittman HospitalComment on above:Order Comment: Name Collection Type:: Clean- Voided MidstreamResult Comment: PERFORMED BY: [place] [address] PATHOLOGIST INTERACTIVE ACCOUNT MANAGER EZRA MCCLAIN M.D.Performed By: #### CMP, CBC #### [place] [address] USApH (U)5.5 [pH]Normal5.0-9.0[facility] PrebleComment on above:Order Comment: Name Collection Type:: Clean-Voided MidstreamPerformed By: #### CMP, CBC #### [place] [address] USAProtein,UrineNegativeNormalNegWadsworth-Rittman HospitalComment on above:Order Comment: Name Collection Type:: Clean- Voided MidstreamPerformed By: #### CMP, CBC #### [place] [address] USASpecificy [place],Urine1.835Xzhrzx4.001-1.030[facility] Health PrebleComment on above:Order Comment: Name Collection Type:: Clean-Voided MidstreamPerformed By: #### CMP, CBC #### [place] [address] USAUrobilinogen,UrineNormalNormalNormOhioHealth Arthur G.H. Bing, MD, Cancer CenterComment on above:Order Comment: Name Collection Type:: Clean- Voided MidstreamPerformed By: #### CMP, CBC #### [place] [address] USAUrine clarity by refractometry automatedOrdered By: Joo Ramos on 61-87-5175Ggchpzq Refractometry automated (U)ClearCleHenry County HospitalUrine glucose measurement by automated test strip (mass/volume)Ordered By: Joo Ramos on 02-57-8824Whoxmmb Auto test strip (U) [Mass/Vol]Normal mg/dLMagruder Memorial HospitalUrine hemoglobin detection by automated test stripOrdered By: Joo Ramos on 57-29-6997Zgunkhcmuf Auto test strip Ql (U)NegativeNegWadsworth-Rittman HospitalUrine leukocyte esterase detection by automated test stripOrdered By: Joo Ramos on 06-73-8590Szbidujrq esterase Auto test strip Ql (U)NegativeNegWadsworth-Rittman HospitalUrobilinogen Auto test strip (U) [Mass/Vol]Ordered By: Joo Ramos on 93-40-9693Aoydzpaqjfbg (U) [Mass/Vol]Normal mg/dLMagruder Memorial HospitalWBC Auto (Bld) [#/Vol]Ordered By: Joo Ramos on 30-92-5937GRJ (Bld) [#/Vol]5.2 10*3/uL3.8-11.6FMartin Memorial Hospital XR chest 2V*on 96-32-4873ZH chest 2V*[facility] [address] XRay Report Signed Patient: Carmen Bledsoe MR#: [id number] 9 : 1960 Acct:[id number] Age/Sex: 61 / F ADM Date: 09/10/22 [...] Jacques Vicente Jr, DO 09/10/221154 Signed By: 09/10/221154NoToledo HospitalpH Auto test strip (U) Ordered By: Joo Ramos on 50-71-7157yY (U)5.5 [pH]5.0-9.0[facility] PrebleCHEMISTRYOrdered By: SYSTEM SYSTEM on 88-63-4990Fkyjh gap [Moles/Vol]12 mmol/LNormal6 - 16 mEq/LFTMC RemisolCalcium [Mass/Vol]8.9 mg/dL Normal8.9 - 11.1 mg/dLFTMC RemisolChloride [Moles/Vol]96 mmol/QHic246 - 111 mmol/LFTMC RemisolCO2 [Moles/Vol]29 mmol/XYknsne43 - 31 mmol/LFTMC Remisol Creatinine [Mass/Vol]0.9 mg/dLNormal0.5 - 1.3 mg/dLFTMC RemisolGFR/1.73 sq M.predicted among blacks MDRD (S/P/Bld) [Vol rate/Area]mL/min/1.73 c8Mdddcq >=59mL/min/1.73 m2FT Chem SGFR/1.73 sq M.predicted among non-blacks MDRD (S/P/Bld) [Vol rate/Area]mL/min/1.73 d7Dquqii>=59mL/min/1.73 m2FT Chem S Glucose [Mass/Vol]102 mg/qBXwhsuj36 - 199 mg/dLFTMC RemisolPotassium [Moles/Vol] 4.3 mmol/LNormal3.5 - 5.3 mmol/LFTMC RemisolSodium [Moles/Vol]133 mmol/MWxy604 - 145 mmol/LFTMC RemisolUrea nitrogen [Mass/Vol]17 mg/dLNormal5 - 21 mg/dLFTMC RemisolUrea nitrogen/Creatinine [Mass ratio]19 mg/sbYucskn28 - 20FTMC Remisol CHEMISTRYOrdered By: SYSTEM SYSTEM on 60-60-6568Brsemmx [Mass/Vol]4.1 g/dLNormal 3.3 - 5.0 gm/dLFTMC RemisolAlbumin/Globulin [Mass ratio]1.2 {ratio}Normal1.1 - 2.2FTMC RemisolALP [Catalytic activity/Vol]110 [iU]/dHigh21 - 98 Int._Unit/LFTMC RemisolALT No additional P-5'-P [Catalytic activity/Vol]55 [iU]/dHigh6 - 46 Int._Unit/LFTMC RemisolAnion gap [Moles/Vol]17 mmol/LHigh6 - 16 mEq/LFTMC RemisolAST [Catalytic activity/Vol]89 [iU]/dHigh5 - 43 Int._Unit/LFTMC Remisol Bilirubin [Mass/Vol]0.7 mg/dLNormal0.0 - 1.1 mg/dLFTMC RemisolCalcium [Mass/Vol] 8.7 mg/dLLow8.9 - 11.1 mg/dLFTMC RemisolChloride [Moles/Vol]89 mmol/DOml972 - 111 mmol/LFTMC RemisolCholesterol [Mass/Vol]139 mg/sFFsigvm344 - 200 mg/dLFTMC RemisolCholesterol in HDL [Mass/Vol]61 mg/dLInvalid Interpretation CodeFTMC RemisolCholesterol in LDL [Mass/Vol]61 mg/dLNormal<=129mg/dLFTMC Remisol Cholesterol in VLDL [Mass/Vol]28 mg/dLNormal7 - 40 mg/dLFTMC RemisolCO2 [Moles/Vol]29 mmol/BXcvayt38 - 31 mmol/LFTMC RemisolCreatinine [Mass/Vol]0.7 mg/dLNormal0.5 - 1.3 mg/dLFTMC RemisolGFR/1.73 sq M.predicted among blacks MDRD (S/P/Bld) [Vol rate/Area]mL/min/1.73 c7Rgcrpp>=59mL/min/1.73 m2FTMC Chem S GFR/1.73 sq M.predicted among non-blacks MDRD (S/P/Bld) [Vol rate/Area] mL/min/1.73 p8Okbqkg>=59mL/min/1.73 m2FTMC Chem SGlobulin (S) [Mass/Vol]3.5 g/dL Normal1.4 - 4.0 gm/dLFTMC RemisolGlucose [Mass/Vol]80 mg/oPIfxqbw64 - 199 mg/dL [facility] RemisolPotassium [Moles/Vol]3.3 mmol/LLow3.5 - 5.3 mmol/LFTMC Remisol Protein [Mass/Vol]7.6 g/dLNormal6.0 - 7.8 gm/dLFTMC RemisolSodium [Moles/Vol]132 mmol/LEbl300 - 145 mmol/LFTMC RemisolTriglyceride [Mass/Vol]139 mg/dLNormal <=149mg/dLFTMC RemisolTSH Qn4.64 m[IU]/LNormal0.34 - 5.60 mcIU/mLFTMC Remisol Urea nitrogen [Mass/Vol]16 mg/dLNormal5 - 21 mg/dLFTMC RemisolUrea nitrogen/Creatinine [Mass ratio]23 mg/jzTuvi25 - 20FTMC RemisolCHEMISTRYOrdered By: Hilario Leos on 88-09-5569Uoydcig DL <= 20 mg/L (U) [Mass/Vol]4.6 microgram/mLNormal0.0 - 19.0 mcg/mLFTMC RemisolCHEMISTRYOrdered By: Alfredo Pisano on 57-26-0390UlA4k (Bld) [Mass fraction]6.3 %High<=5.9%[facility] ChemAutoSSHEMATOLOGYOrdered By: Arlene Andrade on 55-94-4171Vysdvdrfsbt distribution width (RBC) [Ratio]16.6 %High10.9 - 14.2 %[facility] HemeAutoSSHematocrit (Bld) [Volume fraction]42.3 %Kowwzl64.0 - 46.0 %[facility] HemeAutoSSHemoglobin (Bld) [Mass/Vol]13.7 g/gRXzuobx67.0 - 16.0 gm/dLFTMC HemeAutoSSMCH (RBC) [Entitic mass]30.6 seHxsaqz81.0 - 34.0 pgFPARKSIDE PSYCHIATRIC [facility] HemeAutoSSMCHC (RBC) [Mass/Vol]32.4 g/dL Klndsl93.4 - 36.0 gm/dLSOUTHWESTERN MEDICAL [facility] HemeAutoSSMCV (RBC) [Entitic vol]94.5 cOEzsddo87.0 - 100.0 fLSOUTHWESTERN MEDICAL CENTER – [facility] HemeAutoSSPlatelet mean volume (Bld) [Entitic vol]7.7 fLNormal6.4 - 10.8 fLSOUTHWESTERN MEDICAL CENTER [facility] HemeAutoSSPlatelets (Bld) [#/Vol]203.0 E9/QAjuyic562.0 - 500.0 E9/L FT HemeAutoSSRBC (Bld) [#/Vol]4.5 E12/LNormal4.3 - 5.9 E12/LFTMC HemeAutoSSWBC corrected for nucl RBC Auto (Bld) [#/Vol]7.1 E9/LNormal4.0 - 11.0 E9/LFTMC HemeAutoSSXR CHEST (2 VW)on 58-24-9328Ckjrapqx chest. MHPN RIS CONSOLIDATEDEXAM: XR CHEST (2 [...] and upper abdomen normal. IMPRESSION: Negative chest. [email or web address] Phone: radiology Study observation (narrative)[email or web address] Phone: XR CHEST (2 VW)Ordered By: Casa Minor on 05-21-2021 [email or web address] Phone: [phone]-21lh 32-23-3161NNPC-CoV-2, RapidNot DetectedNot Cleveland Clinic Mentor Hospitalment on above: Rapid NAAT: The specimen is [...] management decisions. Fact sheet for Healthcare Providers: https://www.fda.gov/media/586365/download Fact sheet for Patients: https://www.fda.gov/media/563116/download Methodology: Isothermal Nucleic Acid Amplification Source.[facility], [facility] 91-37-5234XEYQ-CoV-2MGeorgetown, KYUS PELVIS COMPLETEon 02-19-20201. 8 cm intrauterine fibroid. 2. Likely vascular polyp in the cervix.[facility], KYEXAM: US PELVIS COMPLETE HISTORY: N85.2. Enlarged [...] Left ovary: 2.8 x 2.0 x 1.3 cm.[facility], KYEdi, pn Incoming Radiant Results From [email or web address] - 02/19/2020 4:19 PM EDT EXAM: US [...] 2. Likely vascular polyp in the cervix. [facility], ARBUN & creatinineon 34-51-6377Ywbbfnkwor [Mass/Vol]0.81 mg/dL 0.5 - 0.9 mg/dLRegency Hospital [place] [facility], KYGFR >60>60 mL/minRegency Hospital [facility], KYGFR Non->60>60 mL/minRegency Hospital [facility], KYGFR/1.73 sq M predicted among non-blacks MDRD (S/P/Bld) [Vol rate/Area][place], KYComment on above:Average GFR for 50-59 years old: 93 mL/min/1.73sq m Chronic Kidney Disease: <60 mL/min/1.73sq m Kidney failure: <15 mL/min/1.73sq m eGFR calculated using average adult body mass. Additional eGFR calculator available at: http://www.Smeet/multiple_crcl_2012.htm GFR/1.73 sq M predicted among non-blacks MDRD (S/P/Bld) [Vol rate/Area]NOT REPORTEDRegency Hospital [facility], ARUrea nitrogen [Mass/Vol]15 mg/dL6 - 20 mg/dLRegency Hospital [facility], KYCT ABDOMEN PELVIS W IV CONTRAST Additional Contrast? Oralon 85-81-7891Bn acute process in the abdomen or pelvis. Enlarged, fatty liver. Prominent, bulky uterus, a nonspecific finding that may be related to underlying fibroids or adenomyosis.[place], KYEXAMINATION: CT ABDOMEN PELVIS W IV CONTRAST [...] air. Chronic degenerative changes in the thoracolumbar spine.[facility] Community HospitalFanLibUNIVERSITY HEALTH TRUMAN MEDICAL [facility]ENTER, Tony, Pauly Incoming Radiant Results From [email or web address] - 02/07/2020 3:09 PM EDT EXAMINATION: CT [...] be related to underlying fibroids or adenomyosis. TomfooleryUNIVERSITY HEALTH TRUM[facility], [facility] Auto Differentialon 74-93-9024Tingoonel (Bld) [#/Vol] 0.00 10*3/uLHorton, KYBasophils/100 WBC (Bld)0 %0 - 2 %[facility], KYDifferential TypeYESMBarnesville Hospital, KYEosinophils (Bld) [#/Vol]0.10 10*3/[facility] [place], KYEosinophils/100 WBC (Bld)1 %0 - 5 %[facility], KYErythrocyte distribution width (RBC) [Ratio]15.7 %High12.1 - 15.2 %[facility], KYHematocrit (Bld) [Volume fraction]37.6 %36 - 46 %[facility], MERCYHemoglobin (Bld) [Mass/Vol]12.4 g/dL12 - 16 g/dLRegency Hospital [facility], [place] Interpretation and review of laboratory resultsAbnormalRegency Hospital [place] [facility], [place] Lymphocytes (Bld) [#/Vol]1.40 10*3/[facility], MERCYLymphocytes/100 WBC (Bld)20 %15 - 40 %[facility], [facility]ERH (RBC) [Entitic mass]29.0 pg26 - 34 pg [facility], ARMCHC (RBC) [Mass/Vol]33.0 g/dL31 - 37 g/dLRegency Hospital [facility], ARMCV (RBC) [Entitic vol]87.9 fL80 - 100 fLRegency Hospital [facility], KYMonocytes (Bld) [#/Vol]0.40 10*3/[facility], KYMonocytes/100 WBC (Bld)6 %4 - 8 %[facility], MERCYPlatelet mean volume (Bld) [Entitic vol]NOT REPORTED6 - 12 fLRegency Hospital [facility], KYPlatelets (Bld) [#/Vol]NOT REPORTEDReg[facility] Hospital [facility], KYPlatelets (Bld) [#/Vol]268 10*3/[facility], KYRBC (Bld) [#/Vol]4.28 10*6/uL4 - 5.2 m/[facility]- [place], KYRBC morphology finding Nom (Bld)NOT REPORTEDReg[facility], ARSegmented neutrophils/100 WBC (Bld)73 %47 - 75 %[facility]- [place], KYSegs Absolute5.10[facility]- [place], KYWBC (Bld) [#/Vol]7.1 10*3/uLMerForks Community Hospital- [place], KYWBC (Bld) [#/Vol]NOT REPORTEDper 100 WBCLutheran Hospital- [place], KYWBC MorphologyNOT REPORTEDLutheran Hospital- [place], KYComprehensive Metabolic Panelon 94-52-7299Qlzamnk [Mass/Vol]4.5 g/dL3.5 - 5.2 g/dLLutheran Hospital- [place], [place] Albumin/Globulin [Mass ratio]NOT REPORTEDLutheran Hospital- [place], KYALP [Catalytic activity/Vol]92 U/L35 - 104 U/LMfort hamilton hospital Health- [place], KYALT [Catalytic activity/Vol] 28 U/L5 - 33 U/LMfort hamilton hospital Health- [place], KYAnion gap [Moles/Vol]13 mmol/L9 - 17 mmol/L [facility]- [place], KYAST [Catalytic activity/Vol]19 U/L<32[facility]- [place], [place] Bilirubin Ql (U)0.40 mg/dL0.3 - 1.2 mg/dLLutheran Hospital- [place], KYBun/Cre Icgqc02Atuv [facility]- [place], KYCalcium [Mass/Vol]10.2 mg/dL8.6 - 10.4 mg/dLLutheran Hospital- [place], KYChloride [Moles/Vol]99 mmol/L98 - 107 mmol/LMMercy Health [facility]- [place], KYCO2 [Moles/Vol]28 mmol/L20 - 31 mmol/LMfort hamilton hospital Health- [place], KYCreatinine [Mass/Vol]0.86 mg/dL0.5 - 0.9 mg/dLLutheran Hospital- [place], KYGFR >60>60 mL/minLutheran Hospital- [place], KYGFR Non->60>60 mL/minLutheran Hospital- [place], KYGFR/1.73 sq M predicted among non-blacks MDRD (S/P/Bld) [Vol rate/Area]NOT REPORTEDLutheran Hospital- [place], KYGFR/1.73 sq M predicted among non-blacks MDRD (S/P/Bld) [Vol rate/Area][facility], KYComment on above:Average GFR for 50-59 years old: 93 mL/min/1.73sq m Chronic Kidney Disease: <60 mL/min/1.73sq m Kidney failure: <15 mL/min/1.73sq m eGFR calculated using average adult body mass. Additional eGFR calculator available at: http://www.Smeet/multiple_crcl_2012.htm Glucose [Mass/Vol]121 mg/sHQpbd58 - 99 mg/dLRegency Hospital [facility], ARPotassium [Moles/Vol]4.6 mmol/L3.7 - 5.3 mmol/LMBarnesville Hospital, KYProtein [Mass/Vol]7.7 g/dL6.4 - 8.3 g/dLReg[facility], KYSodium [Moles/Vol]140 mmol/L135 - 144 mmol/[facility], ARUrea nitrogen [Mass/Vol]22 mg/dLHigh6 - 20 mg/dLRegency Hospital [facility], ARHemoglobin A1Con 43-82-4510Vackmtu [Mass/Vol]128 mg/dLRegency Hospital [facility], ARComment on above:The ADA and AACC recommend providing the estimated average glucose result to permit better patient understanding of their HBA1c result. HbA1c (Bld) [Mass fraction]6.1 %High4.8 - 5.9 %[place], [place] Interpretation and review of laboratory resultsAbnormalHorton, KYLipid Panelon 06-05-9395Ytonetxewbe [Mass/Vol]166 mg/dL<200[place], KYComment on above: Cholesterol Guidelines: <200 Desirable 200-240 Borderline >240 Undesirable Cholesterol in HDL [Mass/Vol]39 mg/dLLow>40[place], KYComment on above: HDL Guidelines: <40 Undesirable 40-59 Borderline >59 Desirable Cholesterol in LDL [Mass/Vol]71 mg/dL0 - 130 mg/dLH[place], KYComment on above: LDL Guidelines: <100 Desirable 100-129 Near to/above Desirable 130-159 Borderline >159 Undesirable Direct (measured) LDL and calculated LDL are not interchangeable tests. Cholesterol in VLDL [Mass/Vol]NOT REPORTEDHigh1 - 30 mg/dLH[place], [place] Cholesterol.total/Cholesterol in HDL [Mass ratio]4.3 {ratio}<5[facility] OnBeep RIMERCYTriglyceride [Mass/Vol]280 mg/dLHigh<150[facility] OnBeep RIMERCYComment on above: Triglyceride Guidelines: <150 Desirable 150-199 Borderline 200-499 High >499 Very high Based on AHA Guidelines for fasting triglyceride, April 2012. Magnesiumon 13-66-0149Xpwhdgsey [Mass/Vol]1.9 mg/dL1.6 - 2.6 mg/dLOhiohealth Shelby Hospital OnBeep RIMERCYOtheron 67-02-2722Uwkouvlvmrchsz and review of laboratory resultsAbnormal [facility] OnBeep RIMERCYImmature granulocytes (Bld) [#/Vol]NOT REPORTED0 %[facility] OnBeep RIMERCYPatient Fasting?on 76-50-9862Wjwiqwj Fasting?yesReg[facility] Hospital [facility] WestMERCYTSH with Reflexon 33-48-2498QGV Qn2.01 m[IU]/LMercBayCare Alliant HospitalMERCYVitamin D 25 Hydroxyon 89-74-9454Hupyfmrdunrqbj and review of laboratory resultsAbnormal [facility] OnBeep RIMERCYVit D, 25-Njrhnkp63.5 ng/mLLow30 - 100 ng/mLRegency Hospital Cleveland WestMERCYComment on above: Reference Range: Vitamin D status Range Deficiency <20 ng/mL Mild Deficiency 20-30 ng/mL Sufficiency 30-100 ng/mL Toxicity >100 ng/mL XR CHEST STANDARD (2 VW)on 54-21-5838Km evidence of acute disease in the chest or change from 02/23/2018.[facility] COINPLUSUNIVERSITY HEALTH TRUM[facility]ENTER MERCYCHEST, TWO VIEWS, 09/06/2019: CLINICAL HISTORY: Shortness [...] atherosclerotic calcification and tortuosity of the thoracic aorta.[facility] OnBeep RILosi, Mhpn Incoming Radiant Results From [email or web address] - 09/06/2019 10:11 PM EST CHEST, TWO [...] in the chest or change from 02/23/2018. [facility], MERCY Vital Signs Date TimeVital SignValuePerforming [id number] 09:54-0400Body fifpmq011.02 cmTammy Nigel WATERMAN Work Phone: [phone]10-01-2025 09:54-0400 Body mass index (BMI) [Ratio]62.8 kg/k6Dgstd Nigel WATERMAN Work Phone: [phone]10-01-2025 09:54-0400 Body fzgeuo188.02 kgTammy Nigel CEJA-Rory Work Phone: [phone] [place], [place] [address]3705-07-2025 09:58-0400 Body ncfaas505.6 cmNA Devora SAMPSON Work Phone: [facility]05-07-2025 09:58-0400Body mass index (BMI) [Ratio]54.72 kg/m2NA Devora SAMPSON Work Phone: [facility]05-07-2025 09:58-0400Body weight 153.77 kgNA Devora SAMPSON Work Phone: [facility]05-07-2025 09:58-0400Diastolic blood oaiaioef29 mm[Hg]NA Devora SAMPSON Work Phone: [phone] [place], [place] 1347805-07-2025 09:58-0400Heart rate85 /Zac Dean MD Work Phone: [phone])[phone] [place], [place] 1347805-07-2025 09:58-0400Respiratory rate22 /Zac Dean MD Work Phone: [phone] [place], [place] 2567205-07-2025 09:58-1919VsX5% (BldA) [Mass fraction]97 %MALINA Dean MD Work Phone: [phone])[phone]05-07-2025 09:58-0400Systolic blood lqyryacf245 mm[Hg]MALINA Dean MD Work Phone: [phone] [place], [place] 2567201-15-2025 11:52-0500Blood Pressure LocationTammy Nigel 333-4330Zlmqsy-Dimbu[address] [place] [address] 07-18-2024 11:52-0500Body tgzqngdngru38.52 [degF]Paris Rebolledoant 823-0034Vfpyhg-Kcnil[address] [place] [address] 07-18-2024 11:52-0500Diastolic blood mm[Hg]Paris Nigel 521-4917Tkkoqw-Rqsce[address] [place] [address] 07-18-2024 11:52-0500Heart rate78 /minTammy Nigel 438-7841Ynzxzi-Mofag[address] [place] [address] 07-18-2024 11:52-0500Respiratory rate18 /minTammy Nigel 908-4292Ggltqd-Xbbuq[address] [place] [address] 07-18-2024 11:52-8573HqZ3% (BldA) [Mass fraction]98 %Paris Nigel 087-9152Tibibn-Zuyqd[address] [place] [address] 07-18-2024 11:52-0500Systolic blood mkkhaehh969 mm[Hg]Paris Nigel 202-3536Obmzjo-Igujb[address] 07-11-2024 11:15-0500Blood Pressure LocationTammy Nigel 677-2695Zcxucl-Wmvik[address] [place] [address] 07-11-2024 11:15-0500Body cfnzhwrrnys53.52 [degF]Paris Rust 844-4070Hwtdwh-Mjjvf[address] [place] [address] 07-11-2024 11:15-0500Diastolic blood nrymmjss79 mm[Hg]Paris Rust 569-3113Vlxlgq-Elsmx[address] [place] [address] 07-11-2024 11:15-0500Heart rate92 /minTammy Nigel 224-3706Nxkgqx-Jjkxl[address] [place] [address] 07-11-2024 11:15-0500Respiratory rate18 /minTammy Nigel 328-2031Hbxdai-Sjicr[address] [place] [address] 07-11-2024 11:15-4391CeC6% (BldA) [Mass fraction]99 %Paris Rust 780-6967Wlnpny-Qoqac[address] [place] [address] 07-11-2024 11:15-0500Systolic blood esifmsqv625 mm[Hg]Paris Rust 310-3225Gjgkpi-Zgdhq[address] [place] [address] 06-05-2024 12:57-0500Blood Pressure LocationThniles [facility]12-03-2024 12:57-0500 Diastolic blood ezqggmxo26 mm[Hg]Rick Hernandez [facility]12-03-2024 12:57-0500Heart rate90 /minThomas David [facility]12-03-2024 12:57-0500 Respiratory rate16 /minThomas David [facility]12-03-2024 12:57-4566CcG1% (BldA) [Mass fraction]96 %Rick Hernandez [facility]12-03-2024 12:57-0500 Systolic blood mm[Hg]Rick Hernandez [facility]08-21-2024 13:08-0400Blood Pressure LocationTammy Nigel 969-1624Mbygaf-RxszvTr[facility] 02-22-2024 13:08-0400Body sjmjakuqjrq18.88 [degF]Paris Rebolledoant 582-7138Hftepp-PtzhtTrumbull Memorial Hospital 02-22-2024 13:08-0400Diastolic blood siwhgbkn99 mm[Hg]Paris Nigel 350-9115Hinjzj-GizfoTrumbull Memorial Hospital 02-22-2024 13:08-0400Heart rate63 /minTammy Nigel 102-4315Yhumzh-EuzsxTrumbull Memorial Hospital 02-22-2024 13:08-0400Respiratory rate18 /minTammy Nigel 940-7940Ntepoe-TzaayTrumbull Memorial Hospital 02-22-2024 13:08-4861VyO1% (BldA) [Mass fraction]99 %Paris Nigel 521-7998Rprlkj-LvppvTrumbull Memorial Hospital 02-22-2024 13:08-0400Systolic blood velfukbi137 mm[Hg]Paris Nigel 180-1394Odygwj-TkndiTrumbull Memorial Hospital 12-23-2023 13:25-0400Diastolic blood dunopupw79 mm[Hg]Walker Reedmini [facility]06-21-2024 13:25-0400Heart rate78 /minMuhammad Sarmini [facility]06-21-2024 13:25-0400Mean blood yqlxanin957 mm[Hg]Cardoso Sarmini [facility]06-21-2024 13:25-0400 Respiratory rate24 /minMuhammad Sarmini [facility]06-21-2024 13:25-5668YwC7% (BldA) [Mass fraction]98 %Cardoso Sarmini [address] [place], [place] 4303006-21-2024 13:25-0400 Systolic blood vaoewzvk099 mm[Hg]Cardoso Sarmini [address] [place], [place] 4303006-21-2024 13:15-0400 Diastolic blood rjocyosv21 mm[Hg]Cardoso Sarmini [address] [place], [place] 4303006-21-2024 13:15-0400Heart rate69 /minMuhammad Sarmini [address] [place], [place] 4303006-21-2024 13:15-0400Mean blood tvalqhpy624 mm[Hg]Cardoso Sarmini [facility]06-21-2024 13:15-0400 Respiratory rate17 /minMuhammad Sarmini [facility]06-21-2024 13:15-6924MyN9% (BldA) [Mass fraction]99 %Cardoso Sarmini [address] [place], [place] 4303006-21-2024 13:15-0400 Systolic blood aoqqevqw854 mm[Hg]Cardoso Sarmini [address] [place], [place] 4303006-21-2024 13:10-0400 Diastolic blood yljveell88 mm[Hg]Cardoso Sarmini [address] [place], [place] 4303006-21-2024 13:10-0400Heart rate85 /minMuhammad Sarmini [facility]06-21-2024 13:10-0400Mean blood waqrncug341 mm[Hg]Cardoso Sarmini [facility]06-21-2024 13:10-0400 Respiratory rate15 /minMuhammad Sarmini [facility]06-21-2024 13:10-3541ZcC8% (BldA) [Mass fraction]99 %Cardoso Sarmini [facility]06-21-2024 13:10-0400 Systolic blood hzocssvi209 mm[Hg]Cardoso Sarmini [facility]06-21-2024 13:00-0400Body nguuzxucpkg00.7 [degF]Cardoso Sarmini [facility]06-21-2024 10:45-0400Blood Pressure LocationMuhammad Sarmini [facility]06-21-2024 10:45-0400Body jvyxktsmptr40.88 [degF]Cardoso Sarmini [facility]06-04-2024 14:51-0400Blood Pressure LocationRyan Adam [facility]06-04-2024 14:51-0400 Diastolic blood vujxtlub42 mm[Hg]Alirio Ramirez [facility]06-04-2024 14:51-0400Heart rate86 /minRyan Christofferson [facility]06-04-2024 14:51-8209QvV9% (BldA) [Mass fraction]94 %Alirio Ramirez [facility]06-04-2024 14:51-0400 Systolic blood swtqfxod893 mm[Hg]Alirio Pugasilvana [facility]05-24-2024 14:30-0400Blood Pressure LocationTammandre Rust 625-3207Zwwaih-RksbtTrumbull Memorial Hospital 11-25-2023 14:30-0400Body ozzxmcwrodq17.8 [degF]Paris Rust 824-3012Czuvxj-WudscTrumbull Memorial Hospital 11-25-2023 14:30-0400Diastolic blood cafronvr14 mm[Hg]Paris Rebolledoant 962-5531Bqwuwp-IccubTrumbull Memorial Hospital 11-25-2023 14:30-0400Heart rate89 /minTammy Nigel 161-0349Beoyvw-HdpvbTrumbull Memorial Hospital 11-25-2023 14:30-0400Respiratory rate22 /minTammy Nigel 710-2534Zqfrpz-OimjuTrumbull Memorial Hospital 11-25-2023 14:30-7465EfT8% (BldA) [Mass fraction]98 %Paris Rebolledoant 998-1779Zcgzhk-UriipTrumbull Memorial Hospital 11-25-2023 14:30-0400Systolic blood ujcceqwq644 mm[Hg]Paris Rebolledoant 863-8418Knuauj-ScowlTrumbull Memorial Hospital 11-02-2023 10:06-0400Blood Pressure LocationMuhammad Sarmini 860-0220Mjraff-MnqxxF[facility]05-01-2024 10:06-0400Diastolic blood mm[Hg]Cardoso Sarmini 500-7159Srquaf-UjswjFlower Hospital05-01-2024 10:06-0400Heart rate78 /minMuhammad Sarmini 286-7106Ocxvnu-ZyzihFlower Hospital05-01-2024 10:06-0400Respiratory rate18 /minMujackd Derekmini 816-6399Vlnyve-WmbmqFlower Hospital05-01-2024 10:06-0400Systolic blood mm[Hg]Cardoso Derekmini 047-2776Yutllv-GghosFlower Hospital04-24-2024 13:12-0400Blood Pressure LocationTammy Nigel 754-1944Expmgq-EibjtTrumbull Memorial Hospital 10-26-2023 13:12-0400Diastolic blood mm[Hg]Paris Nigel 411-1657Riaekf-Pvlme[address] [place] [address] 10-26-2023 13:12-0400Heart rate77 /minTammy Nigel 320-1352Kgyfba-Ylepq[address] [place] [address] 10-26-2023 13:12-0400Respiratory rate16 /minTammy Nigel 519-0708Oygpwe-ZmpdfTrumbull Memorial Hospital 10-26-2023 13:12-6001SsF5% (BldA) [Mass fraction]99 %Paris Nigel 374-9166Cqjmvf-Anhmc[address] [place] [address] 10-26-2023 13:12-0400Systolic blood eciuhfqi447 mm[Hg]Paris Nigel 827-3300Igxeus-GbnvqTrumbull Memorial Hospital 10-25-2023 14:56-0400Blood Pressure LocationRydaniele Ramirez [facility]04-23-2024 14:56-0400 Diastolic blood fxphtdiq64 mm[Hg]Alirio Ramirez [facility]04-23-2024 14:56-0400Heart rate96 /minAlirio Mosquedaerson [facility]04-23-2024 14:56-3996QnW8% (BldA) [Mass fraction]67 %Alirio Adam [facility]04-23-2024 14:56-0400 Systolic blood mdfddrep492 mm[Hg]Alirio Adam [facility]04-09-2024 17:33-0400 Diastolic blood hofbmuxi28 mm[Hg]Parisross Rebolledoant 963-1275Motlkc-Qdfub[address] [place] [address] 10-11-2023 17:33-0400Mean blood kdxvweja842 mm[Hg]Paris Nigel 127-2812Ublrxp-Yafmc[address] [place] [address] 10-11-2023 17:33-0400Systolic blood urrrotoj494 mm[Hg]Paris Nigel 289-1104Qurexe-Invzr[address] [place] [address] 10-11-2023 14:21-0400Blood Pressure LocationTammy Nigel 510-8927Hbjtqh-HblinTrumbull Memorial Hospital 10-11-2023 14:21-0400Body mlnsdxetjck71.6 [degF]Paris Nigel 478-4555Jzoaut-MltqaTrumbull Memorial Hospital 10-11-2023 14:21-0400Diastolic blood qjodhbbk69 mm[Hg]Paris Nigel 541-0986Hpgaut-XandtTrumbull Memorial Hospital 10-11-2023 14:21-0400Heart rate65 /minTammy Nigel 891-3510Ktcltt-RozhuTrumbull Memorial Hospital 10-11-2023 14:21-0400Respiratory rate20 /minTammy Nigel 871-6814Tktkcx-YqjvxTrumbull Memorial Hospital 10-11-2023 14:21-2226HkO2% (BldA) [Mass fraction]95 %Paris Nigel 188-4274Jcsrwn-Hgjms[address] [place] [address] 10-11-2023 14:21-0400Systolic blood mm[Hg]Paris Nigel 146-1615Raxmfu-Vkqyy[address] [place] [address] 08-10-2023 14:19-0500Blood Pressure LocationTammandre Nigel 508-4369Fetsgu-Ynfag[address] [place] [address] 08-10-2023 14:19-0500Body hgedntcnfxw08.88 [degF]Paris Nigel 071-3792Zgmzrl-Tmqdo[address] [place] [address] 08-10-2023 14:19-0500Diastolic blood fprvpoew59 mm[Hg]Paris Nigel 388-2681Lgqtop-Gctna[address] [place] [address] 08-10-2023 14:19-0500Heart rate90 /minTammy Nigel 597-4799Goriyr-Biydl[address] [place] [address] 08-10-2023 14:19-0500Respiratory rate20 /minTammy Nigel 920-7907Sedljj-Aisbk[address] [place] [address] 08-10-2023 14:19-8827YnT8% (BldA) [Mass fraction]95 %Paris Nigel 833-3412Gagbeo-Jlkfr[address] [place] [address] 08-10-2023 14:19-0500Systolic blood dimhfrqc805 mm[Hg]Paris Nigel 430-0637Nwrgql-Rcdtm[address] [place] [address] 05-09-2023 08:04-0500Blood Pressure LocationAnsley Carrero 032-0303Fnpziu-Mxbdq[address] [place] [address] 05-09-2023 08:04-0500Body mcnusbcnqii62.24 [degF]Ansley Carrero 516-2969Sfuixp-Vkpqc[address] [place] [address] 05-09-2023 08:04-0500Diastolic blood fgifnvnw95 mm[Hg]Ansley Howardzier 198-9266Bxspew-Jvwps[address] [place] [address] 05-09-2023 08:04-0500Heart rate77 /minEjuanakeisha HowardCarrero 497-2947Zzcwpu-Tazez[address] [place] [address] 05-09-2023 08:04-0500Respiratory rate18 /minEgogo Carrero 842-1536Yvsqjf-Alvcn[address] [place] [address] 05-09-2023 08:04-0277RhM8% (BldA) [Mass fraction]96 %Ansleykeisha HowardCarrero 850-1027Fehuuj-Zedon[address] [place] [address] 05-09-2023 08:04-0500Systolic blood ezhtzzgk270 mm[Hg]Ansleykeisha HowardCarrero 771-0378Tpdokk-Cvzjq[address] [place] [address] 04-26-2023 10:59-0400Blood Pressure LocationTammy Nigel 745-4540Pzebrw-Wuvmc[address] [place] [address] 04-26-2023 10:59-0400Body rsmamdkdtoh80.6 [degF]Paris Rebolledoant 952-7875Bntqmp-Gcuek[address] [place] [address] 04-26-2023 10:59-0400Diastolic blood iztjnzai50 mm[Hg]Paris Nigel 455-8217Pwlbyr-Ivrje[address] [place] [address] 04-26-2023 10:59-0400Heart rate78 /minTammy Nigel 828-5914Vzmewy-Iljoe[address] [place] [address] 04-26-2023 10:59-0400Respiratory rate18 /minTammy Nigel 264-4183Abdrwh-Ulvhn[address] [place] [address] 04-26-2023 10:59-9849PrE8% (BldA) [Mass fraction]98 %Paris Nigel 105-9570Ieuaio-Ofnph[address] [place] [address] 04-26-2023 10:59-0400Systolic blood jwkcvinn238 mm[Hg]Paris Rust 938-7463Vsuqhf-Gzgzw[address] [place] [address] 03-18-2023 11:51-0400Blood Pressure LocationTammy Nigel 851-6683Auzclq-Ezhki[address] [place] [address] 03-18-2023 11:51-0400Body naweomqmsdc90.7 [degF]Paris Rust 086-0446Ewigaz-Uolub[address] [place] [address] 03-18-2023 11:51-0400Diastolic blood otyihnlc99 mm[Hg]Paris Rust 175-7629Vhjzha-Jtnvh[address] [place] [address] 03-18-2023 11:51-0400Heart rate78 /minTammy Nigel 134-4270Laiwqc-Kmjxn[address] [place] [address] 03-18-2023 11:51-0400Respiratory rate16 /minTammy Nigel 096-6345Dzjadl-Wbkrx[address] [place] [address] 03-18-2023 11:51-2409MqJ4% (BldA) [Mass fraction]94 %Paris Rust 262-3611Zxdais-Atkqn[address] [place] [address] 03-18-2023 11:51-0400Systolic blood oasxgiou458 mm[Hg]Paris Rust 379-2355Ecbdwj-Xdjfs[address] [place] [address] 10-15-2022 05:30-0400Diastolic blood hnnmwsyd84 mm[Hg]Demetra Cruz MD Work Phone: [facility] [employer] [phone] 05:30-0400Heart rate98 /Benny Cruz MD Work Phone: [employer] [phone] 05:30-0400 Respiratory rate21 /minDemetra Cruz MD Work Phone: [employer] [facility]ITALNMBRAX38-01-4578 05:30-0400Systolic blood zymktbcq928 mm[Hg]Demetra Cruz MD Work Phone: [facility]ITALAHVPAK11-61-5341 05:15-5951MgC3% (BldA) [Mass fraction]89 %Demetar Cruz MD Work Phone: [facility]04-13-2023 21:50-0400Body boxmup122.2 cmDemetra Cruz MD Work Phone: [facility]04-13-2023 21:50-0400Body mass index (BMI) [Ratio]51.22 kg/c3NadybpDemetra Cruz MD Work Phone: [employer] [facility]04-13-2023 21:50-0400Body swukzyozess44.1 [degF]Demetra Cruz MD Work Phone: [employer] [facility]04-13-2023 21:50-0400Body thjmyl270.33 kgDemetra Cruz MD Work Phone: [employer] [facility]04-12-2023 08:55-0400Blood Pressure LocationCarmen Haley [facility]04-12-2023 08:55-0400 Diastolic blood xjmprbom23 mm[Hg]Carmen Haley [facility]04-12-2023 08:55-0400Heart rate79 /minCarmen Haley [facility]04-12-2023 08:55-1307AdI6% (BldA) [Mass fraction]93 %Carmen Haley [facility]04-12-2023 08:55-0400 Systolic blood yvioifak499 mm[Hg]Carmen Haley [facility]03-29-2023 11:33-0400Blood Pressure LocationCarmen Haley [address] [place], [place] 4483003-29-2023 11:33-0400 Diastolic blood ctajqopx71 mm[Hg]Carmen Haley [facility]03-29-2023 11:33-0400Heart rate90 /minCarmen Haley [facility]03-29-2023 11:33-2439PrV3% (BldA) [Mass fraction]93 %Carmen Haley [facility]03-29-2023 11:33-0400 Systolic blood hrqxhifc335 mm[Hg]Carmen Haley [address] [place], [place] 3903903-24-2023 14:40-0400Blood Pressure LocationLupis [employer] 664-9070Phgifa-Hzvot[address] [place] [address] 09-24-2022 14:40-0400Body gpnylihmwbm25.16 [degF]Lupis EFREN 101-9039Erscle-Qlbuw[address] [place] [address] 09-24-2022 14:40-0400Diastolic blood gvgnxiwo21 mm[Hg][employer] 605-8107Qhovko-Mfwdr[address] [place] [address] 09-24-2022 14:40-0400Heart rate83 /Arden SCHWARTZ 002-3812Kipaju-Zllod[address] [place] [address] 09-24-2022 14:40-0400Respiratory rate24 /Arden SCHWARTZ 581-0925Gfwdvc-Ynofe[address] [place] [address] 09-24-2022 14:40-6609TwO9% (BldA) [Mass fraction]92 %[employer] 998-2556Wfzmqo-Vutte[address] [place] [address] 09-24-2022 14:40-0400Systolic blood mblzmxie785 mm[Hg][employer] 234-8022Hwuoiz-Xaopk[address] [place] [address] 09-22-2022 08:08-0400Blood Pressure LocationCarmen Haley [facility]03-22-2023 08:08-0400 Diastolic blood motzuebi02 mm[Hg]Carmen Haley [facility]03-22-2023 08:08-0400Heart rate72 /minCarmen Haley [facility]03-22-2023 08:08-6204OoM3% (BldA) [Mass fraction]94 %Carmen Haley [facility]03-22-2023 08:08-0400 Systolic blood qzdsicqd540 mm[Hg]Carmen Haley [facility]03-14-2023 11:55-0400Heart rate79 /minDO Joo Rachel Work Phone: [facility]03-14-2023 11:55-0400 Respiratory rate20 /minDO Joo Rachel Work Phone: [facility]03-14-2023 08:41-0400 SaO2% (BldA) [Mass fraction]95 %DO Joo Rachel Work Phone: [facility]03-14-2023 07:36-0400 Diastolic blood mm[Hg]DO Joo Rachel Work Phone: [facility]03-14-2023 07:36-0400 Systolic blood mm[Hg]DO Joo Rachel Work Phone: [facility]03-14-2023 05:21-0400 Body .9 kgDO Joo Rachel Work Phone: [facility]03-14-2023 03:46-0400 Body idieolcgdkx63.1 [degF]DO Joo Rachel Work Phone: [facility]03-13-2023 15:35-0400 Body rgiecd843.02 cmDO Joo Ramos Work Phone: [facility]03-11-2023 20:33-0500 Inhaled oxygen flow rate2 L/minDO Joo Ramos Work Phone: [facility]03-10-2023 14:03-0500 Diastolic blood kcqkvnyi24 mm[Hg][facility]03-10-2023 14:03-0500Heart rate86 /[facility]03-10-2023 14:03-0500Inhaled oxygen flow rate2 L/[facility] 09-10-2022 14:03-0500Respiratory rate20 /[facility] 09-10-2022 14:03-8967GvQ3% (BldA) [Mass fraction]98 %[facility]03-10-2023 14:03-0500Systolic blood zqzggamd392 mm[Hg][facility]03-10-2023 11:11-0500Body .02 cmK[facility]03-10-2023 11:11-0500Body sncflmhyvtd80.6 [degF][facility]03-10-2023 11:11-0500Body nmagam658 kgKettering Health [facility]03-06-2023 11:23-0500Blood Pressure LocationLupis SCHWARTZ 601-4721Rdjegc-IhymvTrumbull Memorial Hospital 09-06-2022 11:23-0500Body jzaaxxyyepy04.16 [degF]Lupis SCHWARTZ 517-2383Myxfbs-GvlisTrumbull Memorial Hospital 09-06-2022 11:23-0500Diastolic blood dxhpmhri39 mm[Hg]Lupis SCHWARTZ 713-2675Bgfpno-ObjfhTrumbull Memorial Hospital 09-06-2022 11:23-0500Heart rate83 /Arden SCHWARTZ 662-1942Ndpici-GwbfvTrumbull Memorial Hospital 09-06-2022 11:23-0500Respiratory rate28 /minLupis EFREN 139-2748Aktsun-Lrwtr[address] [place] [address] 09-06-2022 11:23-3125EcA2% (BldA) [Mass fraction]94 %[employer] 047-3868Cyhpko-Ztztp[address] [place] [address] 09-06-2022 11:23-0500Systolic blood zllwnidg776 mm[Hg]Lupis SCHWARTZ 526-6796Tmryxm-Nruky[address] [place] [address] 08-20-2022 15:03-0500Diastolic blood tbroxoxy12 mm[Hg][employer] 151-6948Nrlkze-Yhzwp[address] [place] [address] 08-20-2022 15:03-0500Mean blood cwpigmjc845 mm[Hg][employer] 175-8120Sfivbg-Clfcz[address] [place] [address] 08-20-2022 15:03-0500Systolic blood fbnnbpmo744 mm[Hg][employer] 481-3929Ckskdd-Hdeij[address] [place] [address] 08-20-2022 13:59-0500Blood Pressure LocationLupis I[facility], [employer] 830-2314Cwudrb-Terqu[address] [place] [address] 08-20-2022 13:59-0500Body gaybqtfoacm91.98 [degF][employer] 714-3857Fmzwss-Qednh[address] [place] [address] Doc 08-20-2022 13:59-0500Diastolic blood ojgzirmr600 mm[Hg][employer] 444-7578Xetuzo-Wwrvc[address] [place] [address] 08-20-2022 13:59-0500Heart rate77 /minLupis EFREN 513-6918Uuhxcu-Lvyvj[address] [place] [address] 08-20-2022 13:59-0500Respiratory rate28 /minLupis EFREN 259-2335Yeljgd-Nhvap[address] [place] [address] 08-20-2022 13:59-9393VtE6% (BldA) [Mass fraction]97 %Lupis EFREN 716-5492Vfjrwx-AqzrxTrumbull Memorial Hospital 08-20-2022 13:59-0500Systolic blood ztmljqeq462 mm[Hg]Lupis EFREN 617-4916Udubjg-KtfyhTrumbull Memorial Hospital 12-30-2021 11:01-0400Blood Pressure LocationParish RUBIO 256-4801Zrglyo-InlebK[facility] 06-29-2022 11:01-0400Body oodmevkgbxl39.42 [degF]Parish RUBIO 965-0980Qdbddv-RppraKettering Health [facility] 06-29-2022 11:01-0400Diastolic blood oyqhjnge61 mm[Hg] Parish RUBIO 923-9602Sapsct-IhaopK[facility]tering [facility] 06-29-2022 11:01-0400Heart rate73 /minSoniadaron RUBIO 587-4031Btxxdt-XsxgqAultman Hospitalard 06-29-2022 11:01-4198CwU3% (BldA) [Mass fraction]96 % Parish RUBIO 001-7486Vvtumu-FbagpKettering [facility] 06-29-2022 11:01-0400Systolic blood mowyfvkt986 mm[Hg] Parish RUBIO 182-4148Emhxth-VhckoKettering Health [facility] 01-06-2022 08:54-0500Body xbenmj197.6 cmMwhz Education Work Phone: [facility] [phone] 08:54-0500Body mass index (BMI) [Ratio]55.17 kg/m2[employer] Work Phone: [facility] Rottsd15-83-7227 08:54-0500Body xarbmy080.04 kg [employer] Work Phone: [facility]Flodesign SonicsUzikks05-20-9685 09:46-0500Body iuvcju563.6 cm [employer] Work Phone: [facility] HospitalFlodes[facility] SonicsOrkobp09-34-1861 09:46-0500Body mass index (BMI) [Ratio]56.27 kg/m2[employer] Work Phone: [facility] SonicsAsqoyg66-40-8400 09:46-0500Body fitcmk929.12 kg [employer] Work Phone: [facility] SonicsJgzuil67-16-3439 12:10-0400BP Yxhdleltj53 mm[Hg] [facility], XB46-83-5785 12:10-0400BP Biggzgbw627 mm[Hg][facility], DU22-47-2883 12:10-0400Pulse (Heart Rate)62 /[facility], KL71-04-7005 12:10-0400Pulse Tjzsgxzy58 %[facility], BV42-04-8269 12:10-0400Respiratory Rate18 /[facility], [place]07-34-1262 11:39-0400Body Xltvweeelyz07.4 [degF][facility], SB75-66-6710 08:43-0400BMI (Body Mass Index)51.84 kg/m2[facility], TY76-69-6412 08:43-0400Body ppiqhp241.14 kg [facility], QE59-82-9690 08:43-1258Dkoiwx408.2 [facility], [place]53-72-8623 13:09-0500Pulse Resqnqtw89 %[facility], [place] Encounters Encounter DateEncounter TypeCare ProviderFacilityStart: 04-22-2025 End: 13-23-0741wlqqdgpycwHpxrfdy Vytautas Giedraitis MDFacility:[facility] [place] Start: 04-09-2025 End: 94-13-7262bswiedryecYcgbq L. 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 BryantFacility:FM WillardStart: 03-05-2025 End: 24-81-7338Myxadmk encounter procedureTagregor Rust [phone]-DbelaOhio State [facility] [place] Start: 02-11-2025 End: 68-42-5446vhlojcmrwhAyrghsw Vytautas Giedraitis MDFacility:[facility] [place] Start: 02-04-2025 End: 94-06-1676pjhdcddmfrYxbqe L. BryantFacility:FM [place]ardStart: 02-04-2025 End: 46-66-9792Mmbaenz encounter procedureTagregor Rust [phone]-UtxfdOhio State Harding Hospital Medicine Doc Start: 01-29-2025 End: 26-80-9195irotvizngtAJAY NONEFacility:FTMCStart: 01-24-2025 End: 79-82-1794Kznfmuixu department patient visitOneal Newman Facility:[facility]MCStart: 01-21-2025 End: 91-21-1469maxyecfzxkYrmobbzCalvin Palmer MDFacility:PM [place] Start: 01-07-2025 End: 05-66-0741qflrbvqeooDwooi L. BryantFacility:FTMCStart: 01-07-2025 End: 13-81-1755Okxqemm encounter procedureTagregor Rust [facility] Start: 01-02-2025 End: 29-04-1524Tqc Drop offParis Rust [facility] Start: 01-02-2025 End: 43-17-1879pqkgghvydwFptvo L. BryantFacility: WillardStart: 01-02-2025 End: 17-42-3126Luyicjn encounter procedureTagregor Rust [phone]-XbiguMercy Health Anderson Hospital Family Medicine Doc Start: 01-01-2025 End: 52-75-1100ybqhtyfqyxVtpqns A SteinFacility:FTMCStart: 01-01-2025 End: 56-79-6711Voxcwat encounter procedureThomas Leonela Hernandez [facility] Start: 12-31-2024 End: 64-96-8574gjixrkptmqGxuwx L. BryantFacility:CD:[id number]: 12-27-2024 End: 09-79-1755Cgkvqudtvz and management of inpatientLawrence Erich Kaur Facility:FTMCStart: 06-28-1644Pzpzrkkez department patient visitJldanae Remydonald Facility:FTMCStart: 12-27-2024 End: 05-82-3984Dmevrnfazr and management of inpatientLawrence Erich Virkermoshe III [facility] Start: 12-19-2024 End: 88-91-2537alrtfxjftxWxikh L. BryantFacility:FTMCStart: 12-19-2024 End: 05-14-7565Etpmemy encounter procedureTagregor Rust [facility] Start: 12-19-2024 End: 06-28-3178Pki Drop offTagregor Rust [facility] Start: 12-19-2024 End: 53-71-8297xrexxjkqltSnxkz L. BryantFacility:FM WillardStart: 12-19-2024 End: 38-69-3103Bkwvhyj encounter procedureTagregor Rust [phone]-YuklaMercy Health Anderson Hospital Family Medicine Doc Start: 11-27-2024 End: 50-29-3550ikkmjjbuixUlihu L. BryantFacility:FM WillardStart: 11-27-2024 End: 57-41-9950Wbupoyp encounter procedureTagregor Rust [phone]-KravpMercy Health Anderson Hospital [facility] [place] Start: 11-07-2024 End: 66-02-7250Qjvfop outpatient new 60 minutesS Dylon Dean MD Work Phone: [facility] Bariat[facility] ClinicComment on above: Gastroesophageal reflux disease, unspecified whether esophagitis present (Primary Dx); Morbid obesity with BMI of 50.0-59.9, adult; BRENDA (obstructive sleep apnea); Type 2 diabetes mellitus without complication, without long-term current use of insulinStart: 15-09-6696yxxmugzttpK D[facility]ANLyons [facility] Start: 10-29-2024 End: 56-38-2730cautbycsqtJuppvhb Vytautas Giedraitis MDFacility:PM Leni Start: 09-12-2024 End: 71-49-1446Cvj Drop offTagregor Rust [facility] Start: 09-12-2024 End: 90-51-8077qmxcdpampdHxfdd L. BryantFacility:FM WillardStart: 08-29-2024 End: 46-27-0477bjlfcbtkfaXwwdn L. BryantFacility:FM WillardStart: 08-29-2024 End: 23-48-5919Fnaftcs encounter procedureTagregor Rust [phone]-XghkvKettering Health [facility] [place] Start: 07-23-2024 End: 84-36-9769wvsdwmkgfqBfndrsc Vytautas Giedraitis MDFacility:PM Leni Start: 07-18-2024 End: 81-67-3968tpzcxhcwzrTsrqg L. BryantFacility:FM WillardStart: 07-18-2024 End: 70-71-4967Xnpzvdu encounter procedureTagregor Rust [phone]-BbhdlMercy Health Anderson Hospital [facility] [place] Start: 07-13-2024 End: 27-39-1339Ste Drop offTagregor Rust [facility] Start: 07-13-2024 End: 17-10-6857jdjgrkjrzrVXC, APRN-IRVING RustFacility:FTMCStart: 07-13-2024 End: 18-51-0318Ilcgcxc encounter procedureTagregor Rust [phone]-QwsyvOhio State Harding Hospital Medicine Doc Start: 07-11-2024 End: 81-58-5119eaambrmqptJybmd L. BryantFacility: ardStart: 07-11-2024 End: 06-98-7994Rdqjgvz encounter procedureParis Rust [phone]-NhdezMercy Health Anderson Hospital Family Medicine Doc Start: 06-05-2024 End: 83-50-0485jigtprfyykBHArtem HernandezFacility:FTMCStart: 06-05-2024 End: 79-23-7474Toyjuit encounter procedureRick Hernandez [facility] Start: 05-21-2024 End: 60-74-6433jbomghciciLnqkqvoRj Palmer MDFacility:PM [place] Start: 02-22-2024 End: 47-51-3448npolayzhskOWU, SHIPPING AND RECEIVING WEIGHER-SHOE COVERER Paris RustFacility: ardStart: 02-22-2024 End: 89-48-9466Faeqhdd encounter procedureTagregor Rust [phone]-WlbbgMercy Health Anderson Hospital [facility] [place] Start: 02-10-2024 End: 19-95-8291Afj-admission assessmentMuhammad Talal Sarmini [facility] Start: 01-27-2024 End: 88-10-5027rykeptusqdOqquwifg Talal SarminiFacility:[facility] DHStart: 01-27-2024 End: 01-98-6284Onvcjnn encounter procedureMuhammad Talal Sarmini [phone]-KakryMercy Health Anderson Hospital Digestive Health Start: 12-23-2023 End: 90-54-2954djtanavjwqLrgpxbmb Talal SarminiFacility:FTMCStart: 12-23-2023 End: 10-38-1157Drfaegv encounter procedureMuhammad Talal Sarmini [facility] Start: 12-19-2023 End: 56-62-4921qyodejjhjlWFBFB J MATHEWSCleveland Clinic Avon Hospitaltart: 12-06-2023 End: 17-43-8669dpqgtqulovPrsgBreanna RamirezFacility:FTMCStart: 12-06-2023 End: 79-58-4779Hmocwbo encounter Albino Ramirez [facility] Start: 11-25-2023 End: 87-89-2732uqcgatxngeEUI, SHIPPING AND RECEIVING WEIGHER-SHOE COVERER Paris RustFacility: ardStart: 11-25-2023 End: 66-09-9858Yrxxkhk encounter Tracey Rust [phone]-BxbtzKettering Health [facility] [place] Start: 11-17-2023 End: 30-83-9532kqitumvrsaLPZHBreanna LunaClinton Memorial Hospital HospitalStart: 45-85-2714mzuheeahscEAJ, SHIPPING AND RECEIVING WEIGHER-SHOE COVERER Paris RustFacility: WillardStart: 11-08-2023 End: 68-94-5664mzexlcfpksSjxzBreanna RamirezFacility:[facility]ITALtart: 11-08-2023 End: 17-09-1102Ycqgykt encounter Albino Ramirez [facility] Start: 11-02-2023 End: 34-53-8818kshtxodweiZjytkrnd Talal SarminiFacility:[facility] Centertart: 11-02-2023 End: 00-94-0356Smsrapb encounter procedureMuhammad Talal Sarmini [phone]-QlzibMercy Health Anderson Hospital Digestive [facility] Start: 10-26-2023 End: 23-69-3215rfkxebffxxNOPSRINIVAS FloydFacility: ardStart: 10-26-2023 End: 34-25-4268Ctyyblb encounter procedureParis Rust [phone]-RaursMercy Health Anderson Hospital [facility] [place] Start: 10-25-2023 End: 58-19-9435yngpgoavoiQNMN NONEFacility:FTMCStart: 10-25-2023 End: 93-67-3318Lsumrcu encounter Albino Ramirez [facility] Start: 10-11-2023 End: 29-82-1774jvxrmgsflgNWBSRINIVAS FloydFacility: ardStart: 10-11-2023 End: 71-79-4120Uglnwtk encounter Tracey Rust [phone]-YwxnyMercy Health Anderson Hospital Family Medicine Doc Start: 10-06-2023 End: 86-64-1105Ntwhuojlh department patient visitTAMMAndre Yarbrough HospitalStart: 08-30-2023 End: 85-35-3520mmnyyxrlnnRFTOEAZUL Yarbrough HospitalStart: 08-24-2023 End: 59-44-7214dvuzkoocwsQWMRW BRYANTMercy Tiffin HospitalStart: 08-10-2023 End: 15-82-7595lyyzcpmxjpWTAJV BRYANTMercy Willard HospitalStart: 08-10-2023 End: 35-28-0467Drujthnnph hospital visit by physicianMwh Additional Xray At Mw [facility] LaboratoryComment on above:Right hip painStart: 08-10-2023 End: 60-22-9377Tajrvyu encounter procedureTagregor Rust [phone]-QhfdrTrumbull Memorial Hospital Start: 07-21-2023 End: 01-71-9461Ekbfgmzqkx hospital visit by Karen Shea Physical TherapyStart: 07-20-2023 End: 19-66-6710Yxgqkgecdv hospital visit by Finesse YOUNG Physical TherapyStart: 07-14-2023 End: 56-71-6404Fwenycasbj hospital visit by Karen Shea Physical TherapyStart: 07-11-2023 End: 58-60-8473halnvyymteBUQYOhioHealth Marion General Hospitaltart: 07-08-2023 End: 09-74-4017Ouqkrduoct hospital visit by Karen Shea Physical TherapyStart: 07-07-2023 End: 53-83-7394curbrkowewSMOTOhioHealth Marion General Hospitaltart: 07-06-2023 End: 25-66-4977Wdxtuxkxwe hospital visit by Karen Shea Physical TherapyStart: 02-38-1862nwdnsvmzdyGYBJBarberton Citizens Hospital Start: 06-21-2023 End: 03-11-7604iqbdahzmysENRROhioHealth Marion General Hospitaltart: 05-10-2023 End: 80-37-8843Xmp-admission assessmentLele Grijalva [facility] Start: 05-09-2023 End: 11-22-2147Sdgmuwc encounter procedureAnsley Carrero [phone]-LffmkTrumbull Memorial Hospital Start: 04-29-2023 End: 53-78-8318Vfmoogomn department patient visitVESPremier Health Atrium Medical Centertart: 04-26-2023 End: 17-01-5531Eylqvsk encounter procedureParis Rust [phone]-GagnjAultman Hospitalard Start: 03-18-2023 End: 54-23-9955Gjbhjpd encounter procedureTagregor Rust [phone]-MmulmTrumbull Memorial Hospital Start: 12-01-2022 End: 74-11-2222Sqcwassgqa hospital visit by physicianKrysten [facility] Vascular LabComment on above:Fatigue, unspecified type; Screening, lipidStart: 11-26-2022 End: 28-89-6521Echzawh encounter procedureTagregor Rust [phone]-AreijTrumbull Memorial Hospital Start: 18-84-9373puwjvpnpdwVqrdknwp:33992Idbqf: 10-19-2022 End: 63-19-0727QnuznpurhYxjqm P. Wiarda [facility] Start: 10-19-2022 End: 92-79-8399Aedvyftypd hospital visit by physicianKrysten Additional [facility] At [facility] RadiologyComment on above:Left hand weaknessWeakness of both legsStart: 10-14-2022 End: 72-27-2126Mhoibaqho department patient visitDemetra Cruz MD Work Phone: [phone] [place] [address] EDComment on above:Alcohol abuse (Primary Dx)Start: 10-13-2022 End: 79-66-4252Rrpmuihdnz hospital visit by Meir Taylor CNP Work Phone: [facility] LaboratoryStart: 10-13-2022 End: 91-81-6948Wub-admission Adilson Haley [facility] Start: 10-06-2022 End: 27-72-5095Ftc Drop Anamika SCHWARTZ [facility] Start: 10-06-2022 End: 23-26-7561Tohwkfg encounter Gurdeep SCHWARTZ [phone]-PkrviOhio State Harding Hospital Medicine Doc Start: 09-29-2022 End: 86-67-3427Pzp Drop offCarmen Haley [facility] Start: 09-29-2022 End: 75-05-6744Vqk-admission assessmentCarmen Haley [facility] Start: 09-27-2022 End: 59-13-4747Exr Drop offParis Rust [facility] Start: 09-27-2022 End: 21-00-9213Uhcaveg encounter Tracey Rust [phone]-PjspeOhio State Harding Hospital Medicine Doc Start: 09-24-2022 End: 80-93-6783Utctihm encounter Gurdeep SCHWARTZ [phone]-LcvuwOhio State Harding Hospital Medicine [place] Start: 09-22-2022 End: 80-16-2894Mdigmza encounter Stefani Haley [facility] Start: 23-85-5643zcqworxcfwTdqhhagw:[facility]ITALtart: 09-10-2022 End: 33-51-5227Trqzkgppof and management of inpatientNch Healthcare System - [facility] Naples Facility:[facility]tart: 44-79-7669xbrznezwvs Facility:9090Start: 09-10-2022 End: 93-27-5704Iblnapjhtr and management of inpatientLake [facility] Work Phone: Start: 09-06-2022 End: 36-19-7339Dly Drop offLupis SCHWARTZ [facility] Start: 09-06-2022 End: 63-89-0994Mkdtonp encounter Gurdeep SCHWARTZ [phone]-OpnegMercy Health [facility] Hospital Family Medicine Doc Start: 08-27-2022 End: 83-46-7996Icorwrklen hospital visit by physicianDannemora [facility] Echo Room Irais Yarbrough MW ECHOComment on above:Hypertension, unspecified type; Bilateral leg edemaStart: 08-20-2022 End: 61-17-4433Bwy Drop offLupis SCHWARTZ [facility] Start: 08-20-2022 End: 31-57-9443Yzulhcb encounter Gurdeep SCHWARTZ [phone]-RsqglOhio State Harding Hospital Medicine Doc Start: 12-30-2021 End: 10-86-0367Mujmyei encounter Rolando RUBIO [phone]-MsxwwKettering Health Springfield Doc Start: 07-13-2021 End: 48-24-1384Wgdezitesd hospital visit by physicianCAITLYN Gardner RD Work Phone: mwhZ Diet and NutritionComment on above:ArrivedStart: 07-09-2021 End: 36-21-1356Rsttuvghzv hospital visit by physicianBandar Diabetes Education Work Phone: mwhZ Diabetic EducationStart: 07-02-2021 End: 06-16-1911Bgztrisywd hospital visit by physicianBandar Diabetes Education Work Phone: [facility]Z Diabetic EducationStart: 05-21-2021 End: 06-61-1209Mdhcvfathm hospital visit by physicianKrysten Additional Xray At [facility] RadiologyComment on above:SOB (shortness of breath); Obstructive sleep apnea (adult) (pediatric); Moderate persistent asthma without complicationStart: 05-21-2021 End: 65-28-1257Wsldmmnknk hospital visit by physicianDannemora [facility] Pulmonary Function [facility] PFTComment on above:SOB (shortness of breath); Obstructive sleep apnea syndrome; Moderate persistent asthma without complication; Tobacco abuseStart: 03-17-2020 End: 66-50-0406Qdaecxchak hospital visit by Swapna Malik Work Phone: mZ EndoscopyStart: 03-17-2020 End: 88-50-8469Uutrzezflz hospital visit by physicianadams Covid19 Pat Screening ScheduleUNITY HOSPITAL PRE ADMITComment on above:ArrivedStart: 02-19-2020 End: 93-01-0398Sfqotmygbp hospital visit by physicianadams Ultrasound Room [facility] UltrasoundComment on above:Hypertrophy of uterus; Right lower quadrant painStart: 02-07-2020 End: 34-06-5384Aijzkxxhfw hospital visit by physicianadams Cat Scan [facility] CT ScanComment on above:RLQ abdominal painStart: 09-07-2019 End: 86-09-0019Qlcaaiabpo hospital visit by physicianadams Pulmonary Function Rm [facility] PFTComment on above:SOB (shortness of breath)Start: 09-06-2019 End: 39-21-7400Zolnwmieij hospital visit by physicianadams Dig Rad 1MWHZ LaboratoryComment on above:Syncope and collapse; Pre-operative clearance; Essential hypertension; Hyperlipidemia, unspecified hyperlipidemia type; Vitamin D deficiency; SOB (shortness of breath); Elevated blood sugarSyncope and collapse; Pre-operative clearance; Essential hypertension; Hyperlipidemia, unspecified hyperlipidemia type; Vitamin D deficiency Procedures DateProcedureProcedure DetailPerforming ClinicianStart: 52-94-2221Hvztozrpdyox polypectomyWalker Phillip Start: 73-42-8970Hnnte hip unilateral with pelvis 2-3 viewsTammy Nigel SHIPPING AND RECEIVING WEIGHER - SHOE COVERER Work Phone: Start: 17-00-2855Yibwcstdcfmvd metabolic panelTammy Nigel SHIPPING AND RECEIVING WEIGHER - SHOE COVERER Work Phone: Start: 41-52-6226Zcxar panelTammy Nigel SHIPPING AND RECEIVING WEIGHER - SHOE COVERER Work Phone: Start: 49-95-9508Ephcl albumin quantitativeTammy Nigel SHIPPING AND RECEIVING WEIGHER - SHOE COVERER Work Phone: Start: 81-77-7832Pro-scan xtr veins complete bilateral studyCarmen Haley DO Work Phone: Start: 10-19-2022 End: 30-79-8361Qmlfb spine cervical 4 or 5 Felipe Schwartz MD Work Phone: Start: 70-76-7237Uftu bld gluc mntr dev cleared fda spec home useDemetra Cruz MD Work Phone: Start: 80-67-3919Qqjm bld gluc mntr dev cleared fda spec home useDemetra Cruz MD Work Phone: Start: 10-77-1397Ayrzvviwbe exam chest single view Demetra Cruz MD Work Phone: Start: 14-73-7968Ldsxb of ethanolDemetra Cruz MD Work Phone: Start: 01-32-7130Rignvatqteevg metabolic panelDemetra Cruz MD Work Phone: Start: 57-41-1767Mka routine ecg w/least 12 lds w/i&r Demetra Cruz MD Work Phone: Start: 91-65-6522Nwbsbbbf kinase totalKaleigh Donnamiller SHIPPING AND RECEIVING WEIGHER - SHOE COVERER Work Phone: Start: 08-60-3910Oipwlbswrva Panel (PCR)DO Joo Ramos Work Phone: Start: 22-03-6602Gloiq chest X-rayStart: 05-21-2021 Radiologic exam chest 2 viewsMulu Dean SHIPPING AND RECEIVING WEIGHER - SHOE COVERER Work Phone: Start: 19-44-8780Nlxbzkmca therapyEric P Mainorrejilillieileana Work Phone: Start: 12-71-9490ENGDK-19Luis E Jo Work Phone: Start: 48-52-4936VndtoubjgieNyz WillardStart: 93-16-2523CfbnefealgoHomrh EFREN Start: 77-52-6289Vb pelvic nonobstetric real-time image completeMulu Dean Work Phone: Start: 21-66-4412Pl abdomen & pelvis w/contrast materialMulu Dean Work Phone: Start: 48-50-7324Wiuvw of urea nitrogen quantitative [facility] Work Phone: Start: 11-45-8189ITQHOAYFE TX INTERMITTENTBilly Back Work Phone: start: 07-22-5665Dhfqjeigdq exam chest 2 viewsGreg S [employer] Work Phone: Start: 35-81-216464 hydroxy includes fractions if performedGreg S [employer] Work Phone: Start: 65-12-9207Wvvte of magnesiumGreg S [employer] Work Phone: Start: 44-55-6272Actaw of thyroid stimulating hormone tshGreg S [employer] Work Phone: Start: 16-47-0791Amgva count complete auto&auto difrntl wbcGreg [employer] Work Phone: Start: 40-60-0771Wupaupohkeqhl metabolic panelGreg [employer] Work Phone: Start: 76-95-3961Ndociuxfqq glycosylated i4xNejn [employer] Work Phone: Start: 72-68-8011Uqznz panelJoselito Hsu Work Phone: Start: 05-90-8190MIIBHLC FASTING?Joselito Coco Hsu Work Phone: Arthroplasty of kneeCarmen Haley Eye/lens implant bilatParish RUBIO L foot bunion/reconstructionSoniadaron RUBIO Plan of Treatment DateCare ActivityDetailAuthorStart: 85-97-5441ZOO VACCINE (1 - 1-dose 75+ series)RSV VACCINE (1 - 1-dose 75+ series)[facility] Hospitaltart: 04-10-2030 DTaP/Tdap/Td vaccine (3 - Td or Tdap)DTaP/Tdap/Td vaccine (3 - Td or Tdap)[facility] HospitalStart: 58-86-2760Hkigobl vaccinationTETANUSAFayette County Memorial Hospitaltart: 66-82-5693Xjyzcsebh for malignant neoplasm of colonLutheran HospitalStart: 11-16-2027 Pneumococcal 0-64 years Vaccine (2 of 2 - PPSV23)Pneumococcal 0-64 years Vaccine (2 of 2 - PPSV23)[facility] HospitalStart: 11-07-2024 End: 65-22-3643D00/folate viensL45 & FOLATE Lab Routine Gastroesophageal reflux disease, unspecified whether esophagitis present Morbid obesity with BMI of 50.0-59.9, adult BRENDA (obstructive sleep apnea) Type 2 diabetes mellitus without complication, without long-term current use of insulin Expected: 11/07/2024, Expires: 11/07/2025[facility] City HospitalComment on above:Expected: 11/07/2024, Expires: 11/07/2025Start: 11-07-2024 End: 03-49-9891Argvz metabolic 2000 panel - Serum or PlasmaBASIC METABOLIC PANEL Lab Routine Gastroesophageal reflux disease, unspecified whether esophagitis p resent Morbid obesity with BMI of 50.0-59.9, adult BRENDA (obstructive sleep apnea) Type 2 diabetes mellitus without complication, without long-term current use of insulin Expected: 11/07/2024, Expires:11/07/2025[facility] City HospitalComment on above:Expected: 11/07/2024, Expires: 11/07/2025Start: 11-07-2024 End: 30-50-8914ZXV,PLATELETSCBC,PLATELETS Lab Routine Gastroesophageal reflux disease, unspecified whether esophagitis present Morbid obesity with BMI of 50.0-59.9, adult BRENDA (obstructive sleep apnea) Type 2 diabetes mellitus without complication, without long-term current use of insulin Expected: 11/07/2024, Expires: 11/07/2025[facility] City HospitalComment on above:Expected: 11/07/2024, Expires: 11/07/2025Start: 11-07-2024 End: 22-79-5540LHNAQQDBSX UPPER ENDOSCOPYDIAGNOSTIC UPPER ENDOSCOPY GI/Bronch Routine Gastroesophageal reflux disease, unspecified whether esophagitis present Expected: 11/07/2024, Expires: 11/07/2025[facility] City HospitalComment on above: Expected: 11/07/2024, Expires: 11/07/2025Start: 11-07-2024 End: 61-00-0993Xwribcjd [Mass/volume] in Serum or PlasmaFERRITIN Lab Routine Gastroesophageal reflux disease, unspecified whether esophagitis present Morbid obesity with BMI of 50.0-59.9, adult BRENDA (obstructive sleep apnea) Type 2 diabetes mellitus without complication, without long-term current use of insulin Expected: 11/07/2024, Expires: 11/07/2025[facility] HospitalComment on above: Expected: 11/07/2024, Expires: 11/07/2025Start: 11-07-2024 End: 90-71-1733Enjqkssjuj A1c/Hemoglobin.total in BloodHEMOGLOBIN A1C Lab Routine Gastroesophageal reflux disease, unspecified whether esophagitis present Morbid obesity with BMI of 50.0-59.9, adult BRENDA (obstructive sleep apnea) Type 2 diabetes mellitus without complication, without long-term current use of insulin Expected: 11/07/2024, Expires: 11/07/2025[facility] City HospitalComment on above:Expected: 11/07/2024, Expires: 11/07/2025Start: 11-07-2024 End: 52-21-5822Yrfziwc function 2000 panel - Serum or PlasmaHEPATIC FUNCTION PANEL Lab Routine Gastroesophageal reflux disease, unspecified whether esophagitispresent Morbid obesity with BMI of 50.0-59.9, adult BRENDA (obstructive sleep apnea) Type 2 diabetes mellitus without complication, without long-term current use of insulin Expected: 11/07/2024, Expires: 11/07/2025[facility] City HospitalComment on above:Expected: 11/07/2024, Expires: 11/07/2025Start: 11-07-2024 End: 84-42-2028EKRU/IRON BINDING/TRANSFERRINIRON/IRON BINDING/TRANSFERRIN Lab Routine Gastroesophageal reflux disease, unspecified whether esophagitis present Morbid obesity with BMI of 50.0-59.9, adult BRENDA (obstructive sleep apnea) Type 2 diabetes mellitus without complication, without long-term current use of insulin Expected: 11/07/2024, Expires: 11/07/2025[facility] HospitalComment on above:Expected: 11/07/2024, Expires: 11/07/2025Start: 11-07-2024 End: 88-39-0022CULCR PANEL W CALCULATED LDLLIPID PANEL W CALCULATED LDL Lab Routine Gastroesophageal reflux disease, unspecified whether esophagitis present Morbid obesity with BMI of 50.0-59.9, adult BRENDA (obstructive sleep apnea) Type 2 diabetes mellitus without complication, without long-term current use of insulin Expected: 11/07/2024, Expires: 11/07/2025[facility] HospitalComment on above:Expected: 11/07/2024, Expires: 11/07/2025Start: 11-07-2024 End: 99-30-1426Njuksoopd [Mass/volume] in Serum or PlasmaMAGNESIUM Lab Routine Gastroesophageal reflux disease, unspecified whether esophagitis present Morbid obesity with BMI of 50.0-59.9, adult BRENDA (obstructive sleep apnea) Type 2 diabetes mellitus without complication, without long-term current use of insulin Expected: 11/07/2024, Expires: 11/07/2025[facility] HospitalComment on above: Expected: 11/07/2024, Expires: 11/07/2025Start: 11-07-2024 End: 88-39-7787FXEROTUGU, INORGANICPHOSPHATE, INORGANIC Lab Routine Gastroesophageal reflux disease, unspecified whether esophagitis present Morbid obesity with BMI of 50.0-59.9, adult BRENDA (obstructive sleep apnea) Type 2 diabetes mellitus without complication, without long-term current use of insulin Expected: 11/07/2024, Expires: 11/07/2025[facility] City HospitalComment on above: Expected: 11/07/2024, Expires: 11/07/2025Start: 11-07-2024 End: 31-17-2393OGHGRJB-INRPROTIME-INR Lab Routine Gastroesophageal reflux disease, unspecified whether esophagitis present Morbid obesity with BMI of 50.0-59.9, adult BRENDA (obstructive sleep apnea) Type 2 diabetes mellitus without complication, without long-term current use of insulin Expected: 11/07/2024, Expires: 11/07/2025[facility] HospitalComment on above:Expected: 11/07/2024, Expires: 11/07/2025Start: 11-07-2024 End: 72-51-4558GPW INTACTPTH INTACT Lab Routine Gastroesophageal reflux disease, unspecified whether esophagitis present Morbid obesity with BMI of 50.0-59.9, adult BRENDA (obstructive sleep apnea) Type 2 diabetes mellitus without complication, without long-term current use of insulin Expected: 11/07/2024, Expires: 11/07/2025[facility] HospitalComment on above:Expected: 11/07/2024, Expires: 11/07/2025Start: 11-07-2024 End: 70-88-8585GPY W/FT4 REFLEXTSH W/FT4 REFLEX Lab Routine Gastroesophageal reflux disease, unspecified whether esophagitis present Morbid obesity with BMI of 50.0-59.9, adult BRENDA (obstructive sleep apnea) Type 2 diabetes mellitus without complication, without long-term current use of insulin Expected: 11/07/2024, Expires: 11/07/2025[facility] HospitalComment on above:Expected: 11/07/2024, Expires: 11/07/2025Start: 11-07-2024 End: 12-34-1498ACPMOAM D (25-HYDROXY,TOTAL)VITAMIN D (25-HYDROXY,TOTAL) Lab Routine Gastroesophageal reflux disease, unspecified whether esophagitis present Morbid obesity with BMI of 50.0-59.9, adult BRENDA (obstructive sleep apnea) Type 2 diabetes mellitus without complication, without long-term current use of insulin Expected: 11/07/2024, Expires: 11/07/2025[facility] City HospitalComment on above:Expected: 11/07/2024, Expires: 11/07/2025Start: 72-08-4940WPjV/Tdap/Td vaccine (2 - Td)DTaP/Tdap/Td vaccine (2 - Td)[place], [place]Start: 68-38-3180BSMHJ-19 VACCINE ( season)COVID-19 VACCINE ()[facility] Hospitaltart: 07-21-2023 End: 19-19-9932Mzbxkth encounter yhgdjfjfx30/18/2024 10:30 AM EST Appointment [facility] [address] [facility] [place] [address] Arlene Dickens UHC-Lumbar DDD-Eda GantzMANAT Physical TherapyComment on above:UHC- Lumbar DDD-Eda GantzStart: 07-19-2023 End: 62-45-9427Kczspok encounter kazjnrrme94/16/2024 10:30 AM EST Appointment [facility] [address] [place] [address] Ana Hester, PT [employer]HC-Lumbar DDD-Eda GanJuan Physical TherapyComment on above:UHC-Lumbar DDD-Eda GantzStart: 07-14-2023 End: 86-48-2353Auggqoo encounter raezzznvx18/11/2024 10:30 AM EST Appointment [facility] [address] [place] [address] Arlene Dickens UHC-Lumbar DDD-Eda GantzMANAT Physical TherapyComment on above:UHC- Lumbar DDD-Eda GantzStart: 07-11-2023 End: 37-13-5648Fohpbgg encounter qutmgrpaj01/08/2024 10:30 AM EST Appointment [facility] [address] [facility] [place] [address] Ana Hester, PT UHC-Lumbar DDD-Eda GantzMWHZ Physical TherapyComment on above:[facility]um[facility] DDD-Eda MeghanStart: 12-15-2022 End: 44-97-9172Tertlcu encounter fjvcexnxm07/14/2023 Office Visit Gastroenterology Racheal Braden, SHIPPING AND RECEIVING WEIGHER - SHOE COVERER [address] [address] [facility] GastroenterologyStart: 81-91-1031Efyybfxelir Syncytial Virus (RSV) or age 60 yrs+ (1 - 1-dose 60+ series)Respiratory Syncytial Virus (RSV) or age 60 yrs+ (1 - 1-dose 60+ series)[facility] VER[facility]ARA [facility]ITALStart: 10-26-2022 End: 95-93-5251Hajwgsb encounter cynywmdup81/25/2023 Office Visit Cardiology Joselito Hsu MD [address] [place] [address] [facility] Cardiology SpecialistStart: 48-58-8631PzrwsnkyoLake County Memorial Hospital - West CenterStart: 36-09-7519Ewetuqnvptpgn metabolic 2000 panel - Serum or PlasmaLake County Memorial Hospital - West CenterStart: 20-75-8181JnnvwkndpLake County Memorial Hospital - West CenterStart: 98-57-9872YdbkpeozcLake County Memorial Hospital - West CenterStart: 14-21-6051BprabhbbwLake County Memorial Hospital - West CenterStart: 99-89-7752Uijvekqx to Social ServicesLake County Memorial Hospital - West CenterStart: 09-10-2022 End: 87-09-2848YrrcrifytLake County Memorial Hospital - West CenterStart: 77-39-9684Crpoipvj admissionLake County Memorial Hospital - West CenterStart: 00-31-5753InzhrcbakLake County Memorial Hospital - West CenterStart: 09-08-2021 End: 40-22-3434Afaellm encounter wintererp91/08/2022 Appointment Diabetes ServicesMMATTEAWAN [facility] Diabetic EducationStart: 07-13-2021 End: 61-46-6754Pvofbrx encounter feckvvjvm43/10/2022 Appointment IP Unit Case Parish, RD, LD [facility] Diet and NutritionStart: 07-09-2021 End: 81-06-9419Yvvmgdx encounter upgzrzurt61/06/2022 Appointment Diabetes ServicesMWHZ Diabetic EducationStart: 07-06-2021 End: 20-31-9094Wxqzesy encounter xhccrszwo01/03/2022 Appointment IP Unit Case Parish, RD, LD [facility] Diet and NutritionStart: 04-10-2021 Pneumococcal 0-64 years Vaccine (2 - PCV)Pneumococcal 0-64 years Vaccine (2 - PCV)[facility]Start: 20-18-9169Bfborsnkulkr vaccination PNEUMOCOCCAL VACCINE SERIES (2 of 2 - PCV)[facility]tart: 04-07-2021 COVID-19 Vaccine (3 - Booster for Pfizer series)COVID-19 Vaccine (3 - Booster for Pfizer series)[facility] HospitalStart: 02-91-7645Qsprvyawhl measurementCreatinine monitoringLutheran HospitalStart: 43-40-4199Qqvwvb cancer screenBreast cancer screen [facility] [place]Start: 80-68-8073Qybksvuvv for malignant neoplasm of breast Breast cancer screenLutheran HospitalStart: 14-34-2980E3L test (Diabetic or Prediabetic)A1C test (Diabetic or Prediabetic)[facility] [place]Start: 74-60-2786Etbyxuatxd monitoringCreatinine [facility], [place]Start: 45-26-1196ZfC6m (Bld) [Mass fraction]A1C test (Diabetic or Prediabetic)[facility] KYStart: 78-43-5291Drupdwtkxs A1c lcxsisalhjsU0L test (Diabetic or Prediabetic)[facility] HospitalStart: 95-22-6553Ncilp panelLutheran HospitalStart: 06-90-9212Ueqrq screenLipid screenRegency Hospital Cleveland West, KYStart: 44-58-4513Klodzgpqn monitoringPotassium monitoringLutheran HospitalStart: 04-83-1348Jkvskfzh Vaccine (2 of 3)Shingles Vaccine (2 of 3)[facility] HospitalStart: 45-53-0562Qjjpcaev vaccine (3 of 3)Shingles vaccine (3 of 3)[facility]ITALStart: 03-31-2020 End: 20-40-7189Visams Visit03/31/2020 Office Visit General Surgery Glenn Malik MD [address] [place], [place] [id number] [facility] Cloth [facility]yer - WillardStart: 91-96-1342Sbdqhxbjp vaccinationFlu vaccine (#1)[facility]art: 02-28-2020 End: 92-67-9621Rzekmc Visit02/28/2020 Office Visit General Surgery Glenn Malik MD [address] [place] [address] [phone] [facility] Cloth [facility] - WillardStart: 42-59-6926Csicbgcgf for malignant neoplasm of breastMAMMOGRAM SCREENING DISCUSSIONBrown Memorial Hospitaltart: 09-07-2019 End: 41-46-1606Yvaoygzjzye99/06/2020 Appointment Pulmonary Function TestingMWHZ PFTStart: 74-84-5597Gokdinyioz monitoringCreatinine monitoringHorton, KYStart: 73-76-8214Hvsusvhpz monitoringPotassium [place] Start: 40-46-8233Xcwcv cancer screen colonoscopyColon cancer screen colonoscopy [facility]: 45-05-3948Elpwphapp for malignant neoplasm of colon Colon cancer screen colonoscopySelect Medical Specialty Hospital - Cincinnatiart: 59-47-6870Hzefkmcc Vaccine (1 of 2)Shingles Vaccine (1 of 2)[facility]art: 11-16-2007 Screening for malignant neoplasm of colonB[facility]: 10-00-9382Acurt panelLIPID SCREENINGBrown Memorial Hospitaltart: 1992 Screening for malignant neoplasm of cervixLutheran HospitalStart: 20-52-8007Xwclasrv cancer screenCervical cancer screenSelect Medical Specialty Hospital - Cincinnatiart: 11-16-1983 Screening for malignant neoplasm of cervixLutheran HospitalStart: 98-32-1444Kxtwskiyi C screeningHepatitis C screenBON SECOURS [facility]: 70-57-7315QKR screen HIV screenHorton, KYStart: 07-28-0765RSW screeningParkview Health [facility]: 97-89-6758Psawqarree ScreenDepression ScreenLutheran HospitalStart: 85-34-4752Qupyr screenLipid screenRegency Hospital Cleveland West, [place]Start: 61-27-3565Vtcxjvune C screen Hepatitis C screenRegency Hospital [facility], [facility]: 59-27-9839Qurfwkpwc C screening Luther[facility] HospitalCalculated LDL cholesterol levelKettering Health Preble End: 17-66-8728VKZWNM Lab Routine One Time for 1 Occurrences starting 03/17/2020 until 03/17/2020[facility]UN[facility], KYComment on above:One Time for 1 Occurrences starting 03/17/2020 until 03/17/2020CEACEA Lab Routine 03/17/2020 12:00 PM EDT [facility]Electronic [place], KYCholesterol.total/Cholesterol in HDL [Mass Ratio] in Serum or PlasmaKettering Health Preble End: 16-06-9810Xtvnyrvejmsvgq completeEchocardiogram complete Echocardiography Routine Hypertension, unspecified type Bilateral leg edema1 Occurrences starting 08/27/2022 until 3BON [employer] Work Phone: comment on above:1 Occurrences starting 08/27/2022 until 08/27/2022EKG 12 LeadEKG 12 Lead ECG Routine Syncope and collapse Pre- operative clearance Essential hypertension Hyperlipidemia, unspecified hyperlipidemia type Vitamin D deficiency 09/06/2019 11:05 AM [facility]UN[facility], MERCYEKG 12 LeadEKG 12 Lead ECG STAT 10/14/2022 9:44 PM EDTBON [employer] Work Phone: End: 17-30-3365Tzag PFT Study With BronchodilatorFull PFT Study With Bronchodilator PFT Routine SOB (shortness of breath) 1 Occurrences starting 12/2019 until 09/07/2019[facility] HospitalFlodesign [facility], [place]Comment on above:1 Occurrences starting 09/07/2019 until 09/07/2019 End: 94-00-2249Guiq PFT Study With BronchodilatorFull PFT Study With Bronchodilator PFT Routine SOB (shortness of breath) Obstructive sleep apnea syn drome Moderate persistent asthma without complication Tobacco abuse 1 Occurrences starting 05/21/2021 until 05/21/2021Flower HospitalBlekko Phone: comment on above:1 Occurrences starting 05/21/2021 until 05/21/2021Glucose measurement estimated from glycated hemoglobinKettering Health PrebleH. PYLORI DETECTIONRegency Hospital Cleveland WestMERCYComment on above: Release Upon Ordering for 1 Occurrences starting 03/17/2020Hemoglobin A1c/Hemoglobin.total in BloodKettering Health Preble End: 25-16-1610Ygipnwoclk A1c/Hemoglobin.total in BloodBON [facility] Work Phone: comment on above:Once for 1 Occurrences starting 08/10/2023 until 08/10/2023Oxygen therapy [Minimum Data Set]Initiate Oxygen Therapy Protocol Respiratory Care Routine Daily until discontinued starting 03/17/2020[facility] WestMERCYComment on above:Daily until discontinued starting 03/17/2020 End: 88-96-1163Afypta therapy [Minimum Data Set]Initiate Oxygen Therapy Protocol Respiratory Care STAT One Time for 1 Occurrences starting 10/14/2022 until 3[facility]ouch[facility] Work Phone: Comment on above:One Time for 1 Occurrences starting 10/14/2022 until 3Patient EducationHeart Failure, Adult (DC)[facility] Work Phone: End: 46-31-9553Znmfgbm Fasting?BON [facility]OWN HOSPITALComment on above:Once for 1 Occurrences starting 08/10/2023 until 4Patient referralLake County [facility] Hospital [facility] Work Phone: Surgical PathologySurgical Pathology Lab Routine Release Upon Ordering for 1 Occurrences starting 03/17/2020[facility] WestMERCY Comment on above:Release Upon Ordering for 1 Occurrences starting 03/17/2020 End: 64-74-0496OF NON OB TRANSVAGINALUS NON OB TRANSVAGINAL Imaging Routine Hypertrophy of uterus Right lower quadrant pain 1 Occurrences starting 02/19/2020 until 02/19/2020[facility] WestMERCYComment on above:1 Occurrences starting 02/19/2020 until 02/19/2020US NON OB TRANSVAGINALUS NON OB TRANSVAGINAL Imaging Routine Hypertrophy of uterus Right lower quadrant pain 02/19/2020 2:36 PM [facility] [place], KYVLDL cholesterol measurementKettering Health PrebleXR Lumbar spine [facility] Immunizations Immunization DateImmunizationNotesCare KcqkktkaPertvbgz58-23-8174fnlonftng, seasonal, injectable, preservative free; Translations: [Fluzone TIV PF ]Parisross Rust 573-7416Tmptgn-DbvgnTrumbull Memorial Hospital 70-66-2301dgdjoirvo, injectable, quadrivalent, preservative freeTagregor Nigel 294-3196Ggtecc-KpiklTrumbull Memorial Hospital 04-21-4613zuxblavoj virus vaccine, unspecified formulationLupis SCHWARTZ 028-3323Ygklcr-Pzvjt[address] [place] [address] 62-06-6914HFRP-CoV-2 (COVID-19) mRNAMUL.ORD!z99159Fnrfn BROWN 281-6478Ffpdfl-Byufg[address] [place] [address] 72-70-0446XASHB-19 mRNA, Comirnaty (Pfizer)[facility] 43-81-6370VOGY-CoV-2 mRNA (xxjouflaikp-xggl-mqqapdu) vaccineLupis SCHWARTZ 105-2458Nimgsl-Tsxfp[address] [place] [address] 35-03-9225YJWO-CoV-2 (COVID-19) mRNA BNT-162b2 [place] SCHWARTZ 427-7394Kwazzj-BpxbqTrumbull Memorial Hospital 52-41-9734acphotupk virus vaccine, unspecified formulationLupis SCHWARTZ 868-8136Jmiqwd-GzvceTrumbull Memorial Hospital 69-52-7003BOKL-CoV-2 (COVID-19) mRNA BNT-162b2 [place] SCHWARTZ 102-1108Txgljh-Gndah[address] [place] [address] 06-86-5302HKJL-CoV-2 (COVID-19) mRNA BNT-162b2 [place] SCHWARTZ 487-6885Hqaqri-Mmsrd[address] [place] [address] Doc 59-44-4224tocajc vaccine, liveBrian RUBIO 967-5430Ztymxw-MmzifK[facility]tering [facility] 10028140-15-0381cykqqalgp virus vaccine, unspecified formulationBrian RUBIO 651-3816Ulvbco-LiuebKettering Health [facility] 10552711-66-5949jpnzsbbolmpx polysaccharide vaccine, 23 valentSoniaian RUBIO 176-2208Pdtoif-DmtuzK[facility] 10771947-90-5184qfedyhq toxoid, unspecified formulationBrdaron RUBIO 073-8572Txwoqg-AojawK[facility]tering [facility] 10935019-79-1218cvyipo vaccine, liveSoniaian RUBIO 497-9062Drwmgr-NmwmcKettering Health Springfield Doc 1188472-04-1767tlppnbynp virus vaccine, unspecified formulationParish RUBIO 696-0734Bcbahl-CfyjbKettering Health Springfield Doc 10331036-00-6628hquktagpb virus vaccine, unspecified formulationParish RUBIO 090-9328Dyjghk-QfcdnK[facility]tering [facility] 09022208-47-3000hamfrlrjg virus vaccine, unspecified formulationExcela [facility]more[facility] Hospital06-15-2018pneumococcal polysaccharide vaccine, 23 valentLupis BROWN 614-2750Vxaesr-Bgmnb[address] [place] [address] Doc 61-34-4461lsnhimb toxoid, reduced diphtheria toxoid, and acellular pertussis vaccine, adsorbedVicki BROWN 417-5662Kopeqi-Fihry[address] [place] [address] [place] Payers DatePayer CategoryPayerPolicy [id number] (Managed Care)[facility] MEDICA[facility] COMMUNITY PLAN [id number] 2024Medicaid [id number] Health Npfsjvqvs06-49-6786 Mhqj-hbn71-68cny15-60-6117Djolinl Health InsuranceMARY [facility] xxxxxxxxx 2017-Present [phone] [address] [place], [place] [address]semlegsex [id number] Private Health [id number] 1.2.840.788509.1.13.239.2.7.3.436462.315 29-85-7576Zxqtzri Health [id number] 1.2.840.631164.1.13.239.2.7.3.366[id number] 2.0.1.993553.3.57[id number] 2.0.1.593583.3.579.2.66821-83-4254Cwnmydq87752502 2.0.1.621645.3.579.2.72[id number] 2.0.1.202292.3.579.2.49620-81-3174Znyehcf87561808 2.840.1.015312.3.579.2.59930-85-7054Wdjmstz24056024 2.16.840.1.781147.3.579.2.78500-65-3235Ayvteso19509655 2.16.840.1.510603.3.579.2.76064-99-7961Cvvzmvq29347623 2.16.840.1.479146.3.579.2.12959-46-8515Vdgqswg69084999 2.16.840.1.272088.3.579.2.96179-48-0680Mdusmfl53942803 2.16.840.1.461557.3.579.2.64285-35-5778Gikljuw13664962 2.16.840.1.748689.3.579.2.90970-79-5036Tdgmzxl09733681 2..840.1.296160.3.579.2.58781-16-1668Hqwmxtw45812743 2.16.840.1.806827.3.579.2.73161-54-2086Ovxczad13205493 2.16.840.1.556055.3.579.2.03852-39-6516Ecicpmc40546785 2.16.840.1.686411.3.579.2.04787-72-3030Lfavzxl56341317 2.16.840.1.477928.3.579.2.20167-07-0940Tssfksg25451384 2.16.840.1.315461.3.579.2.40039-84-6448Dfdbdld82158310 2.16.840.1.994905.3.579.2.45713-70-4048Yoqymdr13775632 2.16.840.1.861048.3.579.2.71913-77-5531Ugduebg81452644 2.16.840.1.699845.3.579.2.46894-06-7368Hjzkzge01749250 2.16.840.1.386809.3.579.2.51519-17-6457Owiviio72685026 2.16.840.1.520511.3.579.2.35213-41-6751Tmkatct03611940 2.16.840.1.291927.3.579.2.87432-77-7314Motrfex48164896 2.16.840.1.733455.3.579.2.20699-85-6975Byudbzr13849354 2.16.840.1.171999.3.579.2.25188-47-3203Xbmbvzi39449609 2.16.840.1.264763.3.579.2.98962-34-7006Vbogauu47864337 2..840.1.578952.3.579.2.75792-78-8641Iznbiru12932887 2.16.840.1.225266.3.579.2.78605-83-1227Msihhwm07365492 2.16.840.1.349889.3.579.2.34980-45-3506Oekandp99415535 2.16.840.1.297848.3.579.2.97534-29-3855Pojtxxb15148573 2.16.840.1.499907.3.579.2.94600-46-2278Kgopgyy46465675 2.16.840.1.859094.3.579.2.64277-34-2590Snsabsu42498302 2.16.840.1.885102.3.579.2.95046-87-6601Tzghjbt74203711 2.16.840.1.654785.3.579.2.60208-66-4045Vywsqyy22370505 2.16.840.1.030244.3.579.2.80804-44-4992Bmarqcm50990118 2.16.840.1.393613.3.579.2.64824-29-7463Uqlouif40260156 2.16.840.1.231157.3.579.2.85613-93-4142Umsjoft20548143 2.16.840.1.628780.3.579.2.18329-29-2641Byvaxgj05024443 2.16.840.1.156712.3.579.2.03917-68-3378Ngjxzgi70557882 2.16.840.1.952234.3.579.2.88283-48-6870Hgpwmfa56285109 2.16.840.1.466377.3.579.2.34851-61-2958Pghyjqn12482559 2.16.840.1.008288.3.579.2.53092-46-7989Opwyvec71922332 2.16.840.1.351837.3.579.2.32517-36-2094Kpxylep51406807 2.16.840.1.090666.3.579.2.58670-47-2855Nnkraok72146166 2.16.840.1.152802.3.579.2.79965-03-7603Kwidlgu41200841 2.16.840.1.067604.3.579.2.63339-75-2668Vnbrszl01734005 2.16.840.1.087038.3.579.2.26886-77-9536Cmrwisc59670694 2.16.840.1.149961.3.579.2.65370-25-2279Bmyieff30259497 2.16.840.1.458082.3.579.2.29959-58-3332Woyyyya55448646 2.16.840.1.551083.3.579.2.44120-21-7177Yhihoff96601494 2.16.840.1.972280.3.579.2.04921-40-7653Esfpfin14099662 2.16.840.1.627836.3.579.2.50579-55-4642Vuytprl73949508 2.16.840.1.419017.3.579.2.64055-87-9324Agoxfvd53281021 2.16.840.1.772788.3.579.2.21449-26-0276Sgcaswl05416174 2.16.840.1.727068.3.579.2.82190-84-0971Hfkbaan48030759 2.16.840.1.296559.3.579.2.33589-02-0801Rtgcema26761794 2.16.840.1.496443.3.579.2.49136-22-6304Qnbrnuc78028254 2.16.840.1.166840.3.579.2.05284-56-8750Jzqwmnf031413423 2.16.840.1.764637.3.579.2.54023-91-4252Irylmnj613746178 2.16.840.1.925332.3.579.2.24690-85-3048Kbmuzhp586162900 2.16.840.1.537889.3.579.2.29470-59-8569Grfogue721779255 2.16.840.1.361335.3.579.2.98308-83-7493Njgsbxu796573097 2.16.840.1.922409.3.579.2.33816-78-7770Ylyerya142272298 2.16.840.1.035624.3.579.2.968Bmbqcbi67576330 2.16.840.1.563392.3.579.2.531 Social History DateTypeDetailFacilityStart: 09-06-2019 End: 99-74-5827Fbnvbyd smoking status NHISCurrent every day smokerDayton Osteopathic Hospital: 08-38-1327Vzldvwe of tobacco useCigarette SmokerDayton Osteopathic Hospital: 09-06-2019 End: 05-62-9990Hfdpxunjap smoked current (pack per day) - ReportedDayton Osteopathic Hospital: 09-06-2019 End: 65-22-6888Lmpjobj intakeCurrent drinker of alcohol (finding)[facility]: 38-09-5259Bbblyad Comment5 cigarettes/dayDayton Osteopathic Hospital: 52-59-7847Bihuwvz Commentoccas.[facility]: 03-11-0580Xvw Assigned At BirthNot on fileDayton Osteopathic Hospital: 09-06-2019 End: 58-94-9472Ezbaqyp use and exposureNever usedDayton Osteopathic Hospital: 10-04-2022 End: 36-60-5514Klctvibn to SARS-CoV-2 (event)Not sureDayton Osteopathic Hospital: 12-30-2021 End: 74-57-7819Tpmkgae smoking statusHeavy tobacco smoker (finding)[facility] [employer] Tobacco smoking statusNeverKettering Health Springfield [employer] Start: 10-14-2022 End: 68-24-8170Wct Assigned At BirthFeUniversity Hospitals Sam[facility] [employer] Start: 09-10-2022 End: 59-28-8725Etefbqf smoking status NHISSmoker (finding)[facility]: 14-43-8259Zai Assigned At BirthFeOhioHealth Dublin Methodist Hospitaltart: 18-91-6247Xcakady SDOH Alcohol Cgbfdeixv4GZA SECOURS [facility] Phone: start: 01-93-1387Djoieud SDOH Alcohol Std Ajsxuz3LOP [employer] Work Phone: start: 98-07-8993Rrazdqm SDOH Alcohol Rfead6MVB [employer] Work Phone: start: 79-01-7464Iumxdxg Commentpatient had 2 bottles of rum todayBON [employer] Work Phone: How often to you have a drink containing alcohol? Monthly or lessSOUTHEAST ARIZONA [facility] SirenServHow many standard drinks containing alcohol do you have on a typical day?10 or moreSOUTHEAST ARIZONA MEDICAL CENTER SirenServHow often do you have 6 or more drinks on 1 occasion?WeeklySOUTHEAST ARIZONA MEDICAL [facility] SirenServStart: 50-61-0840Xwrjskr CommentoccasionHopi Health Care Center Terra Motorstart: 11-08-2016 End: 64-08-6403HotHekzlv (finding)[facility] Procedure CodeEquipment CodeEquipment Original TextEquipment IdentifierDates Cement Smartghv W/ Gent 40gr Must Order [id number]: 89-40-5493Hxbaxp Smartghv W/ Gent 40gr Must Order [id number]: 42-90-7391Wfntxd Smartghv W/ Gent 40gr Must Order [id number]: 19-53-7830Tqoq Knee Patella Asym X3 [id number]_impStart: 77-64-2961Mnykqgi, See Instructions, 300 EA, 3, Use to check BS TID and PRN dx E11.9, [facility] ,Supply, 170, cm, 05/27/21 8:31:00 EST, Height/Length Dosing, 157.8, kg, 05/27/21 8:31:00 EST, Weight DosingStart: 60-33-2680Poaw Strips, See Instructions, 300 EA, 3, Use to test BS TID and PRN dx E11.9, [facility], Supply, 170, cm, 05/27/21 8:31:00 EST, Height/Length Dosing, 157.8, kg, 05/27/21 8:31:00 EST, Weight DosingStart: 12-83-7325Acsxtua, See Instructions, 100 EA, 3, Use to check BS daily dx E11.9, [facility], Supply, 163,cm, 12/30/21 11:09:00 EDT, Height/Length Dosing, 154, kg, 12/30/21 11:09:00 EDT, Weight DosingStart: 35-77-7731Rqlc Strips, See Instructions, 100 EA, 3, Use to test BS daily dx E11.9, [id number], Supply, 163, cm, 12/30/21 11:09:00 EDT, Height/Length Dosing, 154, kg, 12/30/21 11:09:00 EDT, Weight DosingStart: 82-67-9993Rthltjw, See Instructions, 100 EA, 3, Use to check BS daily dx E11.9, [facility], Supply, 163,cm, 12/30/21 11:09:00 EDT, Height/Length Dosing, 154, kg, 12/30/21 11:09:00 EDT, Weight DosingStart: 50-06-5039Plgp Strips, See Instructions, 100 EA, 3, Use to test BS daily dx E11.9, [facility]08927, Supply, 163, cm, 12/30/21 11:09:00 EDT, Height/Length Dosing, 154, kg, 12/30/21 11:09:00 EDT, Weight DosingStart: 70-26-2060Aqcohnw, See Instructions, 100 EA, 3, Use to check BS daily dx E11.9, [facility]07119, Supply, 163,cm, 12/30/21 11:09:00 EDT, Height/Length Dosing, 154, kg, 12/30/21 11:09:00 EDT, Weight DosingStart: 66-61-9825Uotn Strips, See Instructions, 100 EA, 3, Use to test BS daily dx E11.9, [facility]50766, Supply, 163, cm, 12/30/21 11:09:00 EDT, Height/Length Dosing, 154, kg, 12/30/21 11:09:00 EDT, Weight DosingStart: 38-69-0562Ogydumo, See Instructions, 100 EA, 3, Use to check BS daily dx E11.9, [facility]56158, Supply, 163,cm, 12/30/21 11:09:00 EDT, Height/Length Dosing, 154, kg, 12/30/21 11:09:00 EDT, Weight DosingStart: 57-97-9360Ejge Strips, See Instructions, 100 EA, 3, Use to test BS daily dx E11.9, [facility]92591, Supply, 163, cm, 12/30/21 11:09:00 EDT, Height/Length Dosing, 154, kg, 12/30/21 11:09:00 EDT, Weight DosingStart: 11-50-0049Fbxpued, See Instructions, 100 EA, 3, Use to check BS daily dx E11.9, [facility]26709, Supply, 163,cm, 12/30/21 11:09:00 EDT, Height/Length Dosing, 154, kg, 12/30/21 11:09:00 EDT, Weight DosingStart: 76-30-2636Ibiz Strips, See Instructions, 100 EA, 3, Use to test BS daily dx E11.9, [facility]06502, Supply, 163, cm, 12/30/21 11:09:00 EDT, Height/Length Dosing, 154, kg, 12/30/21 11:09:00 EDT, Weight DosingStart: 26-57-6332Gwyfpeh, See Instructions, 100 EA, 3, Use to check BS daily dx E11.9, [facility]90101, Supply, 163,cm, 12/30/21 11:09:00 EDT, Height/Length Dosing, 154, kg, 12/30/21 11:09:00 EDT, Weight DosingStart: 44-89-5867Qeqm Strips, See Instructions, 100 EA, 3, Use to test BS daily dx E11.9, [facility]74367, Supply, 163, cm, 12/30/21 11:09:00 EDT, Height/Length Dosing, 154, kg, 12/30/21 11:09:00 EDT, Weight DosingStart: 45-87-3844Mwkuhly, See Instructions, 100 EA, 3, Use to check BS daily dx E11.9, [facility] #[id number], Supply, 163,cm, 12/30/21 11:09:00 EDT, Height/Length Dosing, 154, kg, 12/30/21 11:09:00 EDT, Weight DosingStart: 08-09-9309Idvi Strips, See Instructions, 100 EA, 3, Use to test BS daily dx E11.9, [facility] #[id number], Supply, 163, cm, 12/30/21 11:09:00 EDT, Height/Length Dosing, 154, kg, 12/30/21 11:09:00 EDT, Weight DosingStart: 59-34-8728Uffgtso, See Instructions, 100 EA, 3, Use to check BS daily dx E11.9, [facility] #[id number], Supply, 163,cm, 12/30/21 11:09:00 EDT, Height/Length Dosing, 154, kg, 12/30/21 11:09:00 EDT, Weight DosingStart: 81-05-3114Ckgn Strips, See Instructions, 100 EA, 3, Use to test BS daily dx E11.9, [facility] #[id number], Supply, 163, cm, 12/30/21 11:09:00 EDT, Height/Length Dosing, 154, kg, 12/30/21 11:09:00 EDT, Weight DosingStart: 61-65-4834Gbvonkj, See Instructions, 100 EA, 3, Use to check BS daily dx E11.9, [facility] #[id number], Supply, 163,cm, 12/30/21 11:09:00 EDT, Height/Length Dosing, 154, kg, 12/30/21 11:09:00 EDT, Weight DosingStart: 75-39-8978Qdix Strips, See Instructions, 100 EA, 3, Use to test BS daily dx E11.9, [facility] #[id number], Supply, 163, cm, 12/30/21 11:09:00 EDT, Height/Length Dosing, 154, kg, 12/30/21 11:09:00 EDT, Weight DosingStart: 13-38-0144Dfonsww, See Instructions, 100 EA, 3, Use to check BS daily dx E11.9, [facility] #[id number], Supply, 163,cm, 12/30/21 11:09:00 EDT, Height/Length Dosing, 154, kg, 12/30/21 11:09:00 EDT, Weight DosingStart: 85-33-8229Nlma Strips, See Instructions, 100 EA, 3, Use to test BS daily dx E11.9, [facility] #[id number], Supply, 163, cm, 12/30/21 11:09:00 EDT, Height/Length Dosing, 154, kg, 12/30/21 11:09:00 EDT, Weight DosingStart: 92-60-1176Hhnaqqh, See Instructions, 100 EA, 3, Use to check BS daily dx E11.9, [facility] #[id number], Supply, 163,cm, 12/30/21 11:09:00 EDT, Height/Length Dosing, 154, kg, 12/30/21 11:09:00 EDT, Weight DosingStart: 68-55-0762Duzu Strips, See Instructions, 100 EA, 3, Use to test BS daily dx E11.9, [facility] #[id number], Supply, 163, cm, 12/30/21 11:09:00 EDT, Height/Length Dosing, 154, kg, 12/30/21 11:09:00 EDT, Weight DosingStart: 87-49-5995Rnwkggb, See Instructions, 100 EA, 3, Use to check BS daily dx E11.9, [facility] #[id number], Supply, 163,cm, 12/30/21 11:09:00 EDT, Height/Length Dosing, 154, kg, 12/30/21 11:09:00 EDT, Weight DosingStart: 35-04-3766Kxnr Strips, See Instructions, 100 EA, 3, Use to test BS daily dx E11.9, [facility] #[id number], Supply, 163, cm, 12/30/21 11:09:00 EDT, Height/Length Dosing, 154, kg, 12/30/21 11:09:00 EDT, Weight DosingStart: 79-75-5050Jhtaxhh, See Instructions, 100 EA, 3, Use to check BS daily dx E11.9, [facility] #[id number], Supply, 163,cm, 12/30/21 11:09:00 EDT, Height/Length Dosing, 154, kg, 12/30/21 11:09:00 EDT, Weight DosingStart: 12-00-9008Lepe Strips, See Instructions, 100 EA, 3, Use to test BS daily dx E11.9, [facility][id number], Supply, 163, cm, 12/30/21 11:09:00 EDT, Height/Length Dosing, 154, kg, 12/30/21 11:09:00 EDT, Weight DosingStart: 44-79-3271Jyqjozs, See Instructions, 100 EA, 3, Use to check BS daily dx E11.9, [facility] #[id number], Supply, 163,cm, 12/30/21 11:09:00 EDT, Height/Length Dosing, 154, kg, 12/30/21 11:09:00 EDT, Weight DosingStart: 12-54-1822Fioi Strips, See Instructions, 100 EA, 3, Use to test BS daily dx E11.9, [facility] #[id number], Supply, 163, cm, 12/30/21 11:09:00 EDT, Height/Length Dosing, 154, kg, 12/30/21 11:09:00 EDT, Weight DosingStart: 84-08-6782Fvxrkae, See Instructions, 100 EA, 3, Use to check BS daily dx E11.9, [facility] #[id number], Supply, 163,cm, 12/30/21 11:09:00 EDT, Height/Length Dosing, 154, kg, 12/30/21 11:09:00 EDT, Weight DosingStart: 08-51-7537Htra Strips, See Instructions, 100 EA, 3, Use to test BS daily, [facility] #[id number], Supply, 167.5, cm,10/18/22 13:30:00 EDT, Height/Length Dosing, 147, kg, 10/18/22 13:30:00 EDT, Weight DosingStart: 66-24-9597Sjrizig, See Instructions, 100 EA, 3, Use to check BS daily dx E11.9, [facility] #[id number], Supply, 163,cm, 12/30/21 11:09:00 EDT, Height/Length Dosing, 154, kg, 12/30/21 11:09:00 EDT, Weight DosingStart: 72-03-1238Ehrc Strips, See Instructions, 100 EA, 3, Use to test BS daily, [facility] #63502, Supply, 167.5, cm,10/18/22 13:30:00 EDT, Height/Length Dosing, 147, kg, 10/18/22 13:30:00 EDT, Weight DosingStart: 94-58-0427Hzjoqdj, See Instructions, 100 EA, 3, Use to check BS daily dx E11.9, [facility] #[id number], Supply, 163,cm, 12/30/21 11:09:00 EDT, Height/Length Dosing, 154, kg, 12/30/21 11:09:00 EDT, Weight DosingStart: 38-77-2507Hvdf Strips, See Instructions, 100 EA, 3, Use to test BS daily, [facility] #51573, Supply, 167.5, cm,10/18/22 13:30:00 EDT, Height/Length Dosing, 147, kg, 10/18/22 13:30:00 EDT, Weight DosingStart: 17-44-6825Mxsmahl, See Instructions, 100 EA, 3, Use to check BS daily dx E11.9, [facility] #[id number], Supply, 163,cm, 12/30/21 11:09:00 EDT, Height/Length Dosing, 154, kg, 12/30/21 11:09:00 EDT, Weight DosingStart: 07-96-5940Vjhl Strips, See Instructions, 100 EA, 3, Use to test BS daily, [facility] #[id number], Supply, 167.5, cm,10/18/22 13:30:00 EDT, Height/Length Dosing, 147, kg, 10/18/22 13:30:00 EDT, Weight DosingStart: 14-93-8633Adwdomr, See Instructions, 100 EA, 3, Use to check BS daily dx E11.9, [facility] #64904, Supply, 163,cm, 12/30/21 11:09:00 EDT, Height/Length Dosing, 154, kg, 12/30/21 11:09:00 EDT, Weight DosingStart: 10-18-3584Bxmn Strips, See Instructions, 100 EA, 3, Use to test BS daily, [facility] #[id number], Supply, 167.5, cm,10/18/22 13:30:00 EDT, Height/Length Dosing, 147, kg, 10/18/22 13:30:00 EDT, Weight DosingStart: 64-37-0482Rxinbgm, See Instructions, 100 EA, 3, Use to check BS daily dx E11.9, [facility] #03511, Supply, 163,cm, 12/30/21 11:09:00 EDT, Height/Length Dosing, 154, kg, 12/30/21 11:09:00 EDT, Weight DosingStart: 84-24-5976Ztqr Strips, See Instructions, 100 EA, 3, Use to test BS daily, [facility] #[id number], Supply, 167.5, cm,10/18/22 13:30:00 EDT, Height/Length Dosing, 147, kg, 10/18/22 13:30:00 EDT, Weight DosingStart: 06-33-8137Reukkxh, See Instructions, 100 EA, 3, Use to check BS daily dx E11.9, [facility] #05260, Supply, 163,cm, 12/30/21 11:09:00 EDT, Height/Length Dosing, 154, kg, 12/30/21 11:09:00 EDT, Weight DosingStart: 80-74-0676Uigj Strips, See Instructions, 100 EA, 3, Use to test BS daily, [facility] #44629, Supply, 167.5, cm,10/18/22 13:30:00 EDT, Height/Length Dosing, 147, kg, 10/18/22 13:30:00 EDT, Weight DosingStart: 71-45-3802Jupkpyn, See Instructions, 100 EA, 3, Use to check BS daily dx E11.9, [facility] #65914, Supply, 163,cm, 12/30/21 11:09:00 EDT, Height/Length Dosing, 154, kg, 12/30/21 11:09:00 EDT, Weight DosingStart: 92-03-3612Lyqj Strips, See Instructions, 100 EA, 3, Use to test BS daily, [facility] #48573, Supply, 167.5, cm,10/18/22 13:30:00 EDT, Height/Length Dosing, 147, kg, 10/18/22 13:30:00 EDT, Weight DosingStart: 67-77-7179Geijkay, See Instructions, 100 EA, 3, Use to check BS daily dx E11.9, [facility] #[id number], Supply, 163,cm, 12/30/21 11:09:00 EDT, Height/Length Dosing, 154, kg, 12/30/21 11:09:00 EDT, Weight DosingStart: 31-97-9573Leoc Strips, See Instructions, 100 EA, 3, Use to test BS daily, [facility] #[id number], Supply, 167.5, cm,10/18/22 13:30:00 EDT, Height/Length Dosing, 147, kg, 10/18/22 13:30:00 EDT, Weight DosingStart: 30-41-7656Asjzsfl, See Instructions, 100 EA, 3, Use to check BS daily dx E11.9, [facility] #[id number], Supply, 163,cm, 12/30/21 11:09:00 EDT, Height/Length Dosing, 154, kg, 12/30/21 11:09:00 EDT, Weight DosingStart: 78-37-1775Udqz Strips, See Instructions, 100 EA, 3, Use to test BS daily, [facility] #88299, Supply, 167.5, cm,10/18/22 13:30:00 EDT, Height/Length Dosing, 147, kg, 10/18/22 13:30:00 EDT, Weight DosingStart: 97-16-8728Aovfmtd, See Instructions, 100 EA, 3, Use to check BS daily dx E11.9, [facility] #54759, Supply, 163,cm, 12/30/21 11:09:00 EDT, Height/Length Dosing, 154, kg, 12/30/21 11:09:00 EDT, Weight DosingStart: 08-81-8245Pzel Strips, See Instructions, 100 EA, 3, Use to test BS daily, [facility] #39140, Supply, 167.5, cm,10/18/22 13:30:00 EDT, Height/Length Dosing, 147, kg, 10/18/22 13:30:00 EDT, Weight DosingStart: 61-49-8431Fpjmoxr, See Instructions, 100 EA, 3, Use to check BS daily dx E11.9, [facility] #28185, Supply, 163,cm, 12/30/21 11:09:00 EDT, Height/Length Dosing, 154, kg, 12/30/21 11:09:00 EDT, Weight DosingStart: 13-01-0998Oekm Strips, See Instructions, 100 EA, 3, Use to test BS daily, [facility] #[id number], Supply, 167.5, cm,10/18/22 13:30:00 EDT, Height/Length Dosing, 147, kg, 10/18/22 13:30:00 EDT, Weight DosingStart: 37-58-2778Avdotck, See Instructions, 100 EA, 3, Use to check BS daily dx E11.9, [facility] #63143, Supply, 163,cm, 12/30/21 11:09:00 EDT, Height/Length Dosing, 154, kg, 12/30/21 11:09:00 EDT, Weight DosingStart: 21-98-9022Cgxh Strips, See Instructions, 100 EA, 3, Use to test BS daily, [facility] #92952, Supply, 167.5, cm,10/18/22 13:30:00 EDT, Height/Length Dosing, 147, kg, 10/18/22 13:30:00 EDT, Weight DosingStart: 96-96-6213Ppapluv, See Instructions, 100 EA, 3, Use to check BS daily dx E11.9, [facility] #07286, Supply, 163,cm, 12/30/21 11:09:00 EDT, Height/Length Dosing, 154, kg, 12/30/21 11:09:00 EDT, Weight DosingStart: 73-96-9984Bsbj Strips, See Instructions, 100 EA, 3, Use to test BS daily, [facility] #33526, Supply, 167.5, cm,10/18/22 13:30:00 EDT, Height/Length Dosing, 147, kg, 10/18/22 13:30:00 EDT, Weight DosingStart: 32-37-4674Enxsnyy Unknown 12/23/23 Non Biological UnknownFDAStart: 08-65-6423Uhjhhmf, See Instructions, 100 EA, 3, Use to check BS daily dx E11.9, [facility] #73547, Supply, 163,cm, 12/30/21 11:09:00 EDT, Height/Length Dosing, 154, kg, 12/30/21 11:09:00 EDT, Weight DosingStart: 35-52-6127Hcnq Strips, See Instructions, 100 EA, 3, Use to test BS daily, [facility] #75284, Supply, 167.5, cm,10/18/22 13:30:00 EDT, Height/Length Dosing, 147, kg, 10/18/22 13:30:00 EDT, Weight DosingStart: 77-67-4898Ydwvinl Unknown 12/23/23 Non Biological UnknownFDAStart: 29-72-8027Ltwuwgd, See Instructions, 100 EA, 3, Use to check BS daily dx E11.9, [facility] #77817, Supply, 163,cm, 12/30/21 11:09:00 EDT, Height/Length Dosing, 154, kg, 12/30/21 11:09:00 EDT, Weight DosingStart: 98-81-6820Amcd Strips, See Instructions, 100 EA, 3, Use to test BS daily, [facility] #28705, Supply, 167.5, cm,10/18/22 13:30:00 EDT, Height/Length Dosing, 147, kg, 10/18/22 13:30:00 EDT, Weight DosingStart: 85-99-7211Rpjlhlp Unknown 12/23/23 Non Biological UnknownFDAStart: 46-07-6406Aevflmm, See Instructions, 100 EA, 3, Use to check BS daily dx E11.9, [facility] #53113, Supply, 163,cm, 12/30/21 11:09:00 EDT, Height/Length Dosing, 154, kg, 12/30/21 11:09:00 EDT, Weight DosingStart: 14-81-8403Lzyi Strips, See Instructions, 100 EA, 3, Use to test BS daily, [facility] #66562, Supply, 167.5, cm,10/18/22 13:30:00 EDT, Height/Length Dosing, 147, kg, 10/18/22 13:30:00 EDT, Weight DosingStart: 58-20-3784Ghizute Unknown 12/23/23 Non Biological UnknownFDA Start: 66-42-4438Qberhjw, See Instructions, 100 EA, 3, Use to check BS daily dx E11.9, [facility] #33127, Supply, 163,cm, 12/30/21 11:09:00 EDT, Height/Length Dosing, 154, kg, 12/30/21 11:09:00 EDT, Weight DosingStart: 70-92-3105Xvop Strips, See Instructions, 100 EA, 3, Use to test BS daily, [facility] #51878, Supply, 167.5, cm,10/18/22 13:30:00 EDT, Height/Length Dosing, 147, kg, 10/18/22 13:30:00 EDT, Weight DosingStart: 37-57-3547Lrvqirv Unknown 12/23/23 Non Biological UnknownFDAStart: 77-30-8741Zimvcwi, See Instructions, 100 EA, 3, Use to check BS daily dx E11.9, [facility] #38966, Supply, 163,cm, 12/30/21 11:09:00 EDT, Height/Length Dosing, 154, kg, 12/30/21 11:09:00 EDT, Weight DosingStart: 71-38-3739Sbcm Strips, See Instructions, 100 EA, 3, Use to test BS daily, [facility] #67722, Supply, 167.5, cm,10/18/22 13:30:00 EDT, Height/Length Dosing, 147, kg, 10/18/22 13:30:00 EDT, Weight DosingStart: 11-60-5928Etfetxj Unknown 12/23/23 Non Biological UnknownFDAStart: 82-60-0301Cxadnrl, See Instructions, 100 EA, 3, Use to check BS daily dx E11.9, [facility] #[id number], Supply, 163,cm, 12/30/21 11:09:00 EDT, Height/Length Dosing, 154, kg, 12/30/21 11:09:00 EDT, Weight DosingStart: 42-10-5861Ejfo Strips, See Instructions, 100 EA, 3, Use to test BS daily, [facility] #26023, Supply, 167.5, cm,10/18/22 13:30:00 EDT, Height/Length Dosing, 147, kg, 10/18/22 13:30:00 EDT, Weight DosingStart: 78-81-0396Nwviakk Unknown 12/23/23 Non Biological UnknownFDAStart: 64-36-5722Onlaqgk, See Instructions, 100 EA, 3, Use to check BS daily dx E11.9, [facility] #84393, Supply, 163,cm, 12/30/21 11:09:00 EDT, Height/Length Dosing, 154, kg, 12/30/21 11:09:00 EDT, Weight DosingStart: 99-28-4458Irgg Strips, See Instructions, 100 EA, 3, Use to test BS daily, [facility] #45144, Supply, 167.5, cm,10/18/22 13:30:00 EDT, Height/Length Dosing, 147, kg, 10/18/22 13:30:00 EDT, Weight DosingStart: 63-72-2352Ljgkosl Unknown 12/23/23 Non Biological UnknownFDAStart: 89-17-8223Qlxhdov, See Instructions, 100 EA, 3, Use to check BS daily dx E11.9, [facility] #76426, Supply, 163,cm, 12/30/21 11:09:00 EDT, Height/Length Dosing, 154, kg, 12/30/21 11:09:00 EDT, Weight DosingStart: 46-55-1257Aiex Strips, See Instructions, 100 EA, 3, Use to test BS daily, [facility] #62613, Supply, 167.5, cm,10/18/22 13:30:00 EDT, Height/Length Dosing, 147, kg, 10/18/22 13:30:00 EDT, Weight DosingStart: 89-98-5615Hpwmaii Unknown 12/23/23 Non Biological UnknownFDA Start: 85-79-2919Glyqndl, See Instructions, 100 EA, 3, Use to check BS daily dx E11.9, [facility] #19554, Supply, 163,cm, 12/30/21 11:09:00 EDT, Height/Length Dosing, 154, kg, 12/30/21 11:09:00 EDT, Weight DosingStart: 93-78-4457Cgcm Strips, See Instructions, 100 EA, 3, Use to test BS daily, [facility] #51493, Supply, 167.5, cm,10/18/22 13:30:00 EDT, Height/Length Dosing, 147, kg, 10/18/22 13:30:00 EDT, Weight DosingStart: 69-20-8299Smhsmxc Unknown 12/23/23 Non Biological UnknownFDAStart: 54-43-6797Ifcwilp, See Instructions, 100 EA, 3, Use to check BS daily dx E11.9, [facility] #85339, Supply, 163,cm, 12/30/21 11:09:00 EDT, Height/Length Dosing, 154, kg, 12/30/21 11:09:00 EDT, Weight DosingStart: 83-35-5792Fvzw Strips, See Instructions, 100 EA, 3, Use to test BS daily, [facility] #56537, Supply, 167.5, cm,10/18/22 13:30:00 EDT, Height/Length Dosing, 147, kg, 10/18/22 13:30:00 EDT, Weight DosingStart: 54-25-6092Uylkgfq Unknown 12/23/23 Non Biological UnknownFDAStart: 48-43-7611Ewgyexx, See Instructions, 100 EA, 3, Use to check BS daily dx E11.9, [facility] #68365, Supply, 163,cm, 12/30/21 11:09:00 EDT, Height/Length Dosing, 154, kg, 12/30/21 11:09:00 EDT, Weight DosingStart: 51-88-5595Niqf Strips, See Instructions, 100 EA, 3, Use to test BS daily, [facility] #22401, Supply, 167.5, cm,10/18/22 13:30:00 EDT, Height/Length Dosing, 147, kg, 10/18/22 13:30:00 EDT, Weight DosingStart: 75-44-1819Fviqful Unknown 12/23/23 Non Biological UnknownFDAStart: 10-07-3416Tgizxop, See Instructions, 100 EA, 3, Use to check BS daily dx E11.9, [facility] #16764, Supply, 163,cm, 12/30/21 11:09:00 EDT, Height/Length Dosing, 154, kg, 12/30/21 11:09:00 EDT, Weight DosingStart: 49-05-0189Vxgy Strips, See Instructions, 100 EA, 3, Use to test BS daily, [facility] #52402, Supply, 167.5, cm,10/18/22 13:30:00 EDT, Height/Length Dosing, 147, kg, 10/18/22 13:30:00 EDT, Weight DosingStart: 00-25-7888Hkkftik Unknown 12/23/23 Non Biological UnknownFDAStart: 66-13-6695Anorguq, See Instructions, 100 EA, 3, Use to check BS daily dx E11.9, [facility] #42258, Supply, 163,cm, 12/30/21 11:09:00 EDT, Height/Length Dosing, 154, kg, 12/30/21 11:09:00 EDT, Weight DosingStart: 13-06-6290Pjkt Strips, See Instructions, 100 EA, 3, Use to test BS daily, [facility] #40054, Supply, 167.5, cm,10/18/22 13:30:00 EDT, Height/Length Dosing, 147, kg, 10/18/22 13:30:00 EDT, Weight DosingStart: 30-12-5737Ikazlxk Unknown 12/23/23 Non Biological UnknownFDA Start: 02-77-7963Fmpjhcy, See Instructions, 100 EA, 3, Use to check BS daily dx E11.9, [facility] #01473, Supply, 163,cm, 12/30/21 11:09:00 EDT, Height/Length Dosing, 154, kg, 12/30/21 11:09:00 EDT, Weight DosingStart: 71-89-8726Kipj Strips, See Instructions, 100 EA, 3, Use to test BS daily, [facility] #35675, Supply, 167.5, cm,10/18/22 13:30:00 EDT, Height/Length Dosing, 147, kg, 10/18/22 13:30:00 EDT, Weight DosingStart: 18-16-9956Vckityz Unknown 12/23/23 Non Biological UnknownFDAStart: 14-65-7038Ehrrofe, See Instructions, 100 EA, 3, Use to check BS daily dx E11.9, [facility] #41675, Supply, 163,cm, 12/30/21 11:09:00 EDT, Height/Length Dosing, 154, kg, 12/30/21 11:09:00 EDT, Weight DosingStart: 31-64-3013Hahr Strips, See Instructions, 100 EA, 3, Use to test BS daily, [facility] #71349, Supply, 167.5, cm,10/18/22 13:30:00 EDT, Height/Length Dosing, 147, kg, 10/18/22 13:30:00 EDT, Weight DosingStart: 96-90-6683Knszrao Unknown 12/23/23 Non Biological UnknownFDAStart: 60-09-9834Hsdfutl, See Instructions, 100 EA, 3, Use to check BS daily dx E11.9, [facility] #22535, Supply, 163,cm, 12/30/21 11:09:00 EDT, Height/Length Dosing, 154, kg, 12/30/21 11:09:00 EDT, Weight DosingStart: 08-82-8409Tamx Strips, See Instructions, 100 EA, 3, Use to test BS daily, [facility] #57170, Supply, 167.5, cm,10/18/22 13:30:00 EDT, Height/Length Dosing, 147, kg, 10/18/22 13:30:00 EDT, Weight DosingStart: 94-48-9146Cxbbmyi Unknown 12/23/23 Non Biological UnknownFDAStart: 25-14-9638Mfcnrzx, See Instructions, 100 EA, 3, Use to check BS daily dx E11.9, [facility] #20103, Supply, 163,cm, 12/30/21 11:09:00 EDT, Height/Length Dosing, 154, kg, 12/30/21 11:09:00 EDT, Weight DosingStart: 25-03-1220Crmp Strips, See Instructions, 100 EA, 3, Use to test BS daily, [facility] #24810, Supply, 167.5, cm,10/18/22 13:30:00 EDT, Height/Length Dosing, 147, kg, 10/18/22 13:30:00 EDT, Weight DosingStart: 57-26-3431Igkopov Unknown 12/23/23 Non Biological UnknownFDAStart: 19-82-3940Dxcbcgr, See Instructions, 100 EA, 3, Use to check BS daily dx E11.9, [facility] #28840, Supply, 163,cm, 12/30/21 11:09:00 EDT, Height/Length Dosing, 154, kg, 12/30/21 11:09:00 EDT, Weight DosingStart: 39-00-0820Xfnc Strips, See Instructions, 100 EA, 3, Use to test BS daily, [facility] #79811, Supply, 167.5, cm,10/18/22 13:30:00 EDT, Height/Length Dosing, 147, kg, 10/18/22 13:30:00 EDT, Weight DosingStart: 40-62-1187Tmdqbza Unknown 12/23/23 Non Biological UnknownFDA Start: 63-28-5891Clhuadc, See Instructions, 100 EA, 3, Use to check BS daily dx E11.9, [facility] #24493, Supply, 163,cm, 12/30/21 11:09:00 EDT, Height/Length Dosing, 154, kg, 12/30/21 11:09:00 EDT, Weight DosingStart: 20-37-5367Cqkb Strips, See Instructions, 100 EA, 3, Use to test BS daily, [facility] #24544, Supply, 167.5, cm,10/18/22 13:30:00 EDT, Height/Length Dosing, 147, kg, 10/18/22 13:30:00 EDT, Weight DosingStart: 76-43-5092Mwfhsql Unknown 12/23/23 Non Biological UnknownFDAStart: 09-78-8245Cadguyy, See Instructions, 100 EA, 3, Use to check BS daily dx E11.9, [facility] #94051, Supply, 163,cm, 12/30/21 11:09:00 EDT, Height/Length Dosing, 154, kg, 12/30/21 11:09:00 EDT, Weight DosingStart: 25-40-4355Ntlp Strips, See Instructions, 100 EA, 3, Use to test BS daily, [facility] #27611, Supply, 167.5, cm,10/18/22 13:30:00 EDT, Height/Length Dosing, 147, kg, 10/18/22 13:30:00 EDT, Weight DosingStart: 60-62-2049Cmrtsbw Unknown 12/23/23 Non Biological UnknownFDAStart: 73-25-6296Addunxw, See Instructions, 100 EA, 3, Use to check BS daily dx E11.9, [facility] #42170, Supply, 163,cm, 12/30/21 11:09:00 EDT, Height/Length Dosing, 154, kg, 12/30/21 11:09:00 EDT, Weight DosingStart: 34-08-4442Kfvn Strips, See Instructions, 100 EA, 3, Use to test BS daily, [facility] #59586, Supply, 167.5, cm,10/18/22 13:30:00 EDT, Height/Length Dosing, 147, kg, 10/18/22 13:30:00 EDT, Weight DosingStart: 49-75-6912Tczupmf Unknown 12/23/23 Non Biological UnknownFDAStart: 60-75-1730Acexorp, See Instructions, 100 EA, 3, Use to check BS daily dx E11.9, [facility] #46840, Supply, 163,cm, 12/30/21 11:09:00 EDT, Height/Length Dosing, 154, kg, 12/30/21 11:09:00 EDT, Weight DosingStart: 46-79-4595Uiin Strips, See Instructions, 100 EA, 3, Use to test BS daily, [facility] #02502, Supply, 167.5, cm,10/18/22 13:30:00 EDT, Height/Length Dosing, 147, kg, 10/18/22 13:30:00 EDT, Weight DosingStart: 68-43-4148Vjtbubl Unknown 12/23/23 Non Biological UnknownFDAStart: 29-43-1153Wbwmllo, See Instructions, 100 EA, 3, Use to check BS daily dx E11.9, [facility] #26850, Supply, 163,cm, 12/30/21 11:09:00 EDT, Height/Length Dosing, 154, kg, 12/30/21 11:09:00 EDT, Weight DosingStart: 59-64-2329Wnqt Strips, See Instructions, 100 EA, 3, Use to test BS daily, [facility] #06106, Supply, 167.5, cm,10/18/22 13:30:00 EDT, Height/Length Dosing, 147, kg, 10/18/22 13:30:00 EDT, Weight DosingStart: 10-19-2022 Goals DatePatient GoalDesired Activity/State Functional Status XuhpRmjvriuqhpMzwyjoCppudfyl98-79-2626Zhielfjkwt StatusN/[facility] Ofmfrhh76-29-1372Hyaczddrcc StatusN/[facility] Dayywni80-99-3880Jwppqopmlu StatusN/[facility]08-21-2024Functional StatusN/[facility] Hmwtjjy36-34-3384Xkhhqukbvo StatusN/[facility] 25-81-8815Biktpxvvwl [facility]al StatusN/[facility] Uuhglhq78-38-3925Cxkfojosln StatusN/[facility] Digestive Nyewxb55-10-7365Fcsoqcrbaj Status N/[facility] Dcjpoxq28-36-5946Zojdlglynb [facility]2024Functional StatusN/[facility] Eplkyyn84-11-1801Rwpgzvpkkg StatusN/[facility] Qfkcffz93-43-6421Uepkvlicuo StatusN/[facility] Ghyhjcd48-55-5738Ywhlxabnjd StatusN/[facility] Jwfpshp91-40-1432Udzxytjyjr StatusN/[facility] Mxgxujg98-23-7393Keicldfnle StatusN/[facility] Ozantgw79-06-6691Dxgicqtido [facility]No[facility]29-2023[facility] 97-61-8070Gemvirxycq StatusN/[facility] Ifvugpv52-78-7754Ivkglybrnt StatusSt. [facility]03-14-2023 Functional statusPatient at [facility] Work Phone: [phone]ck StatusN/[facility] Vciwflt60-31-8383Ncqgftshfq StatusN/[facility] Xfyypqq36-27-0719Opxapxkemt StatusN/[facility] Mental Status VmxgVixdkzspcmApuioqZzgyeivz02-03-8316Usqgdaddy functionCognitive Status [facility] Work Phone: Clinical Notes 07-02-2021 to 04-09-2025 Note Date & OwthVmkpWllmzgou76-13-1024 Hospital Discharge instructions Patient Education 04/09/2025 12:14:37 [...] condition. Follow these instructions at home: Take tkls-lbm-duinfgn and prescription medicines only as told by [...] and water are not available, use hand slot floorperson. Avoid contact with people who have cold [...] it is easier to cough up. Take yxxw-alz-ukyrgte and prescription medicines only as told by [...] provider. Document Revised: 09/30/2022 Document Reviewed: 10/21/2021 [employer] Patient Education 2023 [employer] 04/09/2025 06:41:02 Sleep Apnea Sleep Apnea [...] ask your health careprovider. General instructions Take enxp-xwm-pzvxcfg and prescription medicines only as told by [...] provider. Document Revised: 01/27/2022 Document Reviewed: 05/29/2021 [employer] Patient Education 2023 [employer]. 04/09/2025 06:41:00 Type 2 Diabetes Mellitus, Self-Care, [...] treat it right away. Always have a 99-biziiojtv-xjmxga carbohydrate snack with you to treat low [...] you how to adjust your dosage. Take flbs-zqa-wbmhual and prescription medicines only as told by [...] your health care provider once every year. [place] your teeth and gums two times a [...] for more information about diabetes, please visit: [place] [employer] (ADA): www.diabetes.org [place] [employer] and Education Specialists [...] provider. Document Revised: 11/18/2021 Document Reviewed: 11/18/2021 [employer] Patient Education 2023 [employer]. 04/09/2025 06:40:57 Asthma, Adult Asthma, Adult Asthma [...] breathing (shortness of breath). Excessive nighttime or construction project engineer coughing. Chest tightness. Tiredness (fatigue) with minimal [...] condition. Follow these instructions at home: Take ijrj-hsc-isqhplf and prescription medicines only as told by [...] provider. Document Revised: 04/07/2022 Document Reviewed: 03/29/2022 [employer] Patient Education 2023 [employer] Follow Up Care 04/08/2025 08:18:43 With:Nigel MSN, SHIPPING AND RECEIVING WEIGHER-SHOE COVERER, [place] Address: [address] [place] [id number] When:Within 3 Month(s) Comments:chronic care [facility] Doc 10-07-2025 NotePatient Education [...] health care provider. General instructions ??? Take lsvn-edy-zbgyfot and prescription medicines only as told by [...] have: ? Trouble speak (more content not included)...[facility] 03-04-2025 Hospital Discharge instructions Patient Education 03/04/2025 [...] breathing (shortness of breath). Excessive nighttime or construction project engineer coughing. Chest tightness. Tiredness (fatigue) with minimal [...] condition. Follow these instructions at home: Take pcha-ajv-rfwmowf and prescription medicines only as told by [...] provider. Document Revised: 04/07/2022 Document Reviewed: 03/29/2022 [employer] Patient Education 2023 [employer]. 03/04/2025 12:44:27 Exercising to Lose Weight Exercising [...] your health care provider or diet and astronaut mission specialist (dietitian). This may include: ?Eating fewer [...] provider. Document Revised: 08/16/2021 Document Reviewed: 08/16/2021 [employer] Patient Education 2023 [employer]. 03/04/2025 12:44:24 Type 2 Diabetes Mellitus, Self-Care, [...] treat it right away. Always have a 93-gvivydzqy-hrzdes carbohydrate snack with you to treat low [...] you how to adjust your dosage. Take hlhe-uru-lnbvzzw and prescription medicines only as told by [...] your health care provider once every year. [place] your teeth and gums two times a [...] for more information about diabetes, please visit: [place] [employer] (ADA): www.diabetes.org [place] [employer] Care and Education Specialists [...] provider. Document Revised: 11/18/2021 Document Reviewed: 11/18/2021 [employer] Patient Education 2023 [employer]. [facility] [place] 09-01-2025 NotePatient Education Endocrinology Type 2 Diabetes [...] treat it right away. Always have a 17-twhdsrnpg-zjvjgl carbohydrate snack with you to treat low [...] how to adjust your dosage. ??? Take gqui-bcm-qdkdpov and prescription medicines only as told by [...] of the week. ? (more content not included)...[facility]08-04-2025 Hospital Discharge instructions Patient Education 02/04/2025 15:12:35 [...] your health care provider or diet and astronaut mission specialist (dietitian). This may include: ?Eating fewer [...] provider. Document Revised: 08/16/2021 Document Reviewed: 08/16/2021 [employer] Patient Education 2023 [employer]. 02/04/2025 15:12:32 Type 2 Diabetes Mellitus, Self-Care, [...] treat it right away. Always have a 02-ydkwfekfc-putyke carbohydrate snack with you to treat low [...] you how to adjust your dosage. Take igns-ild-bhnamws and prescription medicines only as told by [...] your health care provider once every year. [place] your teeth and gums two times a [...] for more information about diabetes, please visit: [place] Diabetes Association (ADA): www.diabetes.org [place] Association of Diabetes Care and Education Specialists [...] provider. Document Revised: 11/18/2021 Document Reviewed: 11/18/2021 [employer] intern[employer] Patient Education 2023 [employer]. 02/04/2025 15:12:29 Asthma, Adult Asthma, Adult Asthma [...] breathing (shortness of breath). Excessive nighttime or construction project engineer coughing. Chest tightness. Tiredness (fatigue) with minimal [...] condition. Follow these instructions at home: Take dutf-ecu-ewadqdo and prescription medicines only as told by [...] provider. Document Revised: 04/07/2022 Document Reviewed: 03/29/2022 [employer] Patient Education 2023 [employer] Follow Up Care 01/02/2025 14:24:55 With:Nigel SMITH, SHIPPING AND RECEIVING WEIGHER-Paris VILLATORO Address: [address] [place] [phone] When:Within 1 Month(s) Comments:weight loss, initial 40 min [facility] 08-04-2025 NotePatient Education Endocrinology Type [...] treat it right away. Always have a 80-sgesweghn-wlynup carbohydrate snack with you to treat low [...] how to adjust your dosage. ??? Take pzmz-ila-hqosnam and prescription medicines only as told by [...] of the week. ? (more content not included)...[facility]07-24-2025 NoteED Patient Education Note Caregiving Tissue Adhesive [...] and water are not available, use hand slot floorperson. ? Change your dressing as told by [...] scar, or cover it up. ??? Take aoui-oub-mhxwhoa and prescription medicines only as told by [...] provider. Document Revised: 10/26/2021 Document Reviewed: 10/26/2021 [employer] intern[employer]. Patient Education ? 2023 [employer]. Fall Prevention in the Home, Adult Falls [...] Keep items that you use often in flaf-tc-nzrcx places. Lower t (more content not included)...[facility]07-03-2025 NoteMicrobiology PROCEDURE: Blood Culture Charcoal [R1] SOURCE: Blood BODY SITE: Arm L COLLECTED DATE/TIME: 12/27/2024 10:54 EDT RECEIVED DATE/TIME: 12/27/2024 11:21 EDT START DATE/TIME: 12/27/2024 11:21 EDT FREE TEXT SOURCE: Mendez Spain, Whit Simms M.D., Whit Thurman FINAL REPORTS Final Report [] Verified Date/Time: 01/03/2025 12:00 EDT No growth at 7 days. Performing Locations R1: This test was performed at: [facility], [address] [place] [address], [phone] , HgurhtMain Campus Medical CenterComment on above:Performed By: #### [id number] #### [facility] [address] [place] [address] [phone] NoteMicrobiology PROCEDURE: Blood Culture Charcoal [R1] SOURCE: [...] This test was performed at: [facility], [address] [place] [address], [address] [place] [address], YjtguvMain Campus Medical CenterComment on above:Performed By: #### [id number] #### [facility] [address] [place] [address] [phone] Hospital Discharge instructions Patient Education 01/02/2025 06:50:40 [...] treat it right away. Always have a 18-irflgmcuk-irhkns carbohydrate snack with you to treat low [...] you how to adjust your dosage. Take hjta-vpb-znkzxut and prescription medicines only as told by [...] your health care provider once every year. [place] your teeth and gums two times a [...] for more information about diabetes, please visit: [place] Diabetes Association (ADA): www.diabetes.org [place] Association of Diabetes Care and Education Specialists [...] provider. Document Revised: 11/18/2021 Document Reviewed: 11/18/2021 [employer] Patient Education 2023 [employer] 01/02/2025 06:50:38 Sleep Apnea Sleep Apnea [...] ask your health careprovider. General instructions Take hmjn-bxb-pdmsdpy and prescription medicines only as told by [...] provider. Document Revised: 01/27/2022 Document Reviewed: 05/29/2021 [employer] Patient Education 2023 [employer]. 01/02/2025 06:50:35 Heart Failure, Self-Care Heart Failure, [...] when you have heart failure Medicines Take eows-rjm-zzkyovi and prescription medicines only as told by [...] provider. Document Revised: 09/28/2022 Document Reviewed: 01/10/2021 [employer] intern[employer] Patient Education 2023 [employer]. 01/02/2025 06:50:34 Health Risks of Smoking Health [...] Department of Health and Human Services: www.smokefree.gov [place] Lung Association: www.freedomfromsmoking.org [place] Heart Association: www.heart.org Where to find more [...] provider. Document Revised: 06/22/2022 Document Reviewed: 06/22/2022 [employer] Patient Education 2023 [employer]. Follow Up Care 12/19/2024 13:33:44 With:Nigel SMITH, SHIPPING AND RECEIVING WEIGHER-SHOE COVERER, Paris Hamilton Address: [address] [place] [phone] When:Within 1 Month(s) [facility] [place] 07-02-2025 NotePatient Education Cardiovascular Heart Failure, Self-Care [...] when you have heart failure Medicines Take nppn-xkd-pvnxfzg and prescription medicines only as told by [...] outside. ? Avoid alcohol. (more content not included)...[facility] 12-29-2024 Evaluation + Plan noteExtracted from:Title:Discharge NoteAuthor: [...] When Contact Information Follow up with your forestry technician as Scheduled January 01 Additional Instructions: Paris Rust Within 7 to 10 days [address] [place] [address] [phone] Business (1) Additional Instructions: Call for followup appointment Cellulitis, Adult Fluid Restriction Heart Failure Action Plan Form - Daily Weight Record Extracted from:Title:APSO NoteAuthor:Abisai Kaur III, DODate:12/28/24 Patient is a 64-year-old fem nazanin with past medical history of tobacco abuse, HTN, HFpEF, GERD, history of alcohol abuse, HLD, asthma, BRENDA, morbid obesity (BMI 58.6), vwi-syxmajf-gdynkdqmq type 2 diabetes, marijuana use, COPD not on home oxygen, hypertension, history of volume overload especially with heavy alcohol use admitted to [facility] on 12/27/2024 for treatment of acute [...] made to ensure accuracy. However inadvertent computerized car cleaner errors may be present. Extracted from:Title:Admission H & PAuthor:Abisai Kaur III, DODate: 12/27/24 Patient is a 64-year-old fem nazanin with past medical history of tobacco abuse, HTN, HFpEF, GERD, history of alcohol abuse, HLD, asthma, BRENDA, morbid obesity (BMI 58.6), omx-oktpjnu-wnrekacwx type 2 diabetes, marijuana use, COPD not [...] Complete Initial Hospital Care/Day Moderate 55 Minutes [id number] Notify Provider Vital Signs Notify Provider Vital [...] made to ensure accuracy. However inadvertent computerized car cleaner errors may be present. Addendum by Abisai [...] Provider:Rick Hernandez PA-C [facility] Appointment Type:Cardiology Follow Up (FT) Appointment Date:01/02/2025 01:40:00 PM Scheduled Provider:Nigel SMITH, Paris ESPINO Location:[facility] Doc Appointment Type:FM Open Appointment Date:01/07/2025 12:30:00 PM Scheduled Provider: [facility] Appoint[facility] Type:PUL Pulmonary Function Test (FT) Future Scheduled Tests Laboratory* Microalbumin Level Urine 12/19/24 * Urine Microalbumin/Creatinine Ratio 12/19/24 [facility] 06-28-2025 Hospital Discharge instructions Patient [...] Follow these instructions at home: Medicines Take afvx-kcz-vizhylo and prescription medicines only as told by [...] provider. Document Revised: 02/15/2023 Document Reviewed: 02/15/2023 [employer] intern[employer] Patient Education 2023 [employer]. 12/29/2024 11:04:37 Fluid Restriction Fluid Restriction Fluid [...] provider. Document Revised: 04/07/2021 Document Reviewed: 04/07/2021 [employer] Patient Education 2023 [employer]. 12/29/2024 11:04:35 Heart Failure Action Plan Heart [...] symptoms. Follow these instructions at home: Take ztli-epj-oxgrghy and prescription medicines only as told by your health care provider. Weigh yourself daily. Your target weight is lb ( kg). ?Call your health care provider if you gain more than lb ( kg) in 24 hours, ormore than lb ( kg) in a week. ?Health care provider name: ?Health care provider phone number: Eat a heart-healthy diet. Work with a diet and astronaut mission specialist (dietitian) to create an eatingplan that is best for you. Keep all follow-up visits. This is important. Where to find more information [place] Heart Association: Summary A heart failure action [...] provider. Document Revised: 09/28/2022 Document Reviewed: 02/02/2021 [employer] Patient Education 2023 [employer] 12/29/2024 11:04:33 Form - Daily Weight [...] provider. Document Revised: 02/23/2022 Document Reviewed: 02/23/2022 [employer] Patient Education 2023 [employer]. Follow Up Care 12/27/2024 10:32:55 With:Follow up with your forestry technician as Scheduled January 01 Address:Unknown When: Unknown With:Paris Rebolledoant Address: [address] [place] [phone] [facility] (1) When:7 to 10 days Comments:Call for followup appointment [facility] 06-28-2025 NoteDischarge Summary Admission and [...] HLD, asthma, BRENDA, morbid obesity (BMI 58.6), hci-mmwjtjf-tsxujaejw type 2 diabetes, marijuana use, COPD not on home oxygen, hypertension, history of volume overload especially with heavy alcohol use admitted to [facility] on 12/27/2024 for treatment of right [...] 250 mg= 1 tab(s) (more content not included)...[facility]:Result Comment: Electronically Signed By: Abisai Kaur III, DO.br\Date and Time Signed: 12/29/24 11:11 EDT 12-28-2024 NoteProgress Note-Physician Assessment/Plan Patient is a 64-year-old female with past medical history of tobacco abuse, HTN, HFpEF, GERD, history of alcohol abuse, HLD, asthma, BRENDA, morbid obesity (BMI 58.6), kit-hvfqpnx-sktnjswfx type 2 diabetes, marijuana use, COPD not on home oxygen, hypertension, history of volume overload especially with heavy alcohol use admitted to [facility] on 12/27/2024 for treatment of acute [...] made to ensure accuracy. However inadvertent computerized car cleaner errors may be present. Subjective Patient seen [...] Intake mL 125 4,209 (more content not included)...[facility] Center[facility]: Result Comment: Electronically Signed By: Abisai Kaur III, DO\Date and Time Signed: 12/28/24 14:25 [id number] NoteHistory and Physical Basic Information Admit Date/Time:12/27/2024 13:58 Chief Complaint Shortness od breath, edema History of Present Illness Patient is a 64-year-old female with past medical history of tobacco abuse, HTN, HFpEF, GERD, history of alcohol abuse, HLD, asthma, BRENDA, morbid obesity (BMI 58.6), kmy-problru-kndghpyfj type 2 diabetes, marijuana use, COPD not on home oxygen, hypertension, history of volume overload especially with heavy alcohol use who presents to [facility], ER on 12/27/2024 with chief complaint of [...] Lymph Auto: 12.1 % Low (12/27/24 10:54:00) Beltrami Auto: 5.3 % (12/27/24 10:54:00) Eos Auto: 1 % (12/27/24 10:54:00) Basophil Auto: 0.8 % (12/27/24 10:54:00) Neutro Absolute: 5.8 E9/L (12/27/24 10:54:00) Lymph Absolute: 0.9 E9/L Low (12/27/24 10:54:00) Beltrami Absolute: 0.4 E9/L (12/27/24 10:54:00) Eos Absolute: [...] 87 mg/dL (12/27/24 16:55:00) POC Device SN: [id number] (12/27/24 16:55:00) POC User ID: [id number] (12/27/24 16:55:00) POC Username: MIKEY CADET (12/27/24 16:55:00) Assessment/Plan Patient is a 64-year-old female with past medical history of tobacco abuse, HTN, HFpEF, GERD, history of alcohol abuse, HLD, asthma, BRENDA, morbid obesity (BMI 58.6), bni-omxugsi-ottmkwwhx type 2 diabetes, marijuana use, COPD not on home oxygen, hypertension, history of volume overload especially with heavy alcohol use admitted to [facility] on 12/27/2024 for treatment of acute COPD exacerbation and acute heart failure exacerbation. 1. Acute on chronic heart failure (more content not included)...[facility]:Result Comment: Electronically Signed By: Abisai Kaur III, DO\.br\Date and Time Signed: 12/28/24 14:21 [id number] Note Echocardiology Procedure Exam Date/Time Accession # Ordering Echo Transthoracic 12/28/2024 10:03 EDT [id number] Abisai Kaur III, DO CPT code [id number] Reason for Exam (Echo Transthoracic Complete) Congestive Heart Failure Report [facility] [address] [place] [address] Adult Echocardiogram Report Name: CARMEN BLEDSOE Study Date: 12/28/2024 09:14 AM BP: 131/72 mmHg Patient Location: S321 01 HR: 73 : 1960 Gender: Female Height: 65.5 in Age: 64 yrs Ethnicity: [facility] Weight: 353 lb Reason For Study: Congestive [...] HLD, asthma, BRENDA, morbid obesity (BMI 58.6), lhk-rdoctwt-izdeuzjzq type 2 diabetes, marijuana use, COPD not on home oxygen, hypertension, history of volume overload especially with heavy alcohol use who presents to [facility] on 12/27/2024 with chief complaint of [...] Lymph Auto: 12.1 % Low (12/27/24 10:54:00) [place]ami Auto: 5.3 % (12/27/24 10:54:00) Eos Auto: 1 % (12/27/24 10:54:00) Basophil Auto: 0.8 % (12/27/24 10:54:00) Neutro Absolute: 5.8 E9/L (12/27/24 10:54:00) Lymph Absolute: 0.9 E9/L Low (12/27/24 10:54:00) [place]ami Absolute: 0.4 E9/L (12/27/24 10:54:00) Eos Absolute: [...] 87 mg/dL (12/27/24 16:55:00) POC Device SN: [id number] (12/27/24 16:55:00) POC User ID: [id number] (12/27/24 16:55:00) POC Username: MIKEY CADET (12/27/24 16:55:00) Assessment/Plan Patient is a 64-year-old female with past medical history of tobacco abuse, HTN, HFpEF, GERD, history of alcohol abuse, HLD, asthma, BRENDA, morbid obesity (BMI 58.6), vsz-izbhpji-mubhucltj type 2 diabetes, marijuana use, COPD not on home oxygen, hypertension, history of volume overload especially with heavy alcohol use admitted to [facility] on 12/27/2024 for treatment of acute COPD exacerbation and acute heart failure exacerbation. 1. Acute on chronic heart failure (more content not included)...[facility]:Result Comment: Electronically Signed By: Abisai Kaur III, DO.br\Date and Time Signed: 12/27/24 17:49 [id number] Hospital Discharge instructions Patient Education 12/19/2024 06:38:27 [...] treat it right away. Always have a 60-mxscjtajp-itfxqy carbohydrate snack with you to treat low [...] you how to adjust your dosage. Take ahrn-rbu-bzjnzlx and prescription medicines only as told by [...] your health care provider once every year. [place] your teeth and gums two times a [...] for more information about diabetes, please visit: [place] Diabetes Association (ADA): www.diabetes.org [place] Association of Diabetes Care and Education Specialists [...] provider. Document Revised: 11/18/2021 Document Reviewed: 11/18/2021 [employer] intern[employer] Patient Education 2023 [employer]. 12/19/2024 06:38:26 Hypertension, Adult Hypertension, Adult High [...] follow-up visits. This is important. Medicines Take qgjg-oig-vhtxasm and prescription medicines only as told by [...] provider. Document Revised: 04/27/2022 Document Reviewed: 04/27/2022 [employer] intern[employer] Patient Education 2023 [employer]. 12/19/2024 06:38:25 Heart Failure, Self-Care Heart Failure, [...] when you have heart failure Medicines Take yjtw-rnc-sxnqbpv and prescription medicines only as told by [...] provider. Document Revised: 09/28/2022 Document Reviewed: 01/10/2021 [employer] Patient Education 2023 [employer]. Follow Up Care 09/12/2024 13:36:39 With:Nigel SMITH, SHIPPING AND RECEIVING WEIGHER-Paris VILLATORO Address: [address] [place] [phone] When:Within 2 Week(s) Comments:chronic care [facility] Doc 06-18-2025 NotePatient Education [...] one 12 oz bottle (more content not included)...[facility]05-27-2025 Hospital Discharge instructions Patient Education [...] to any changes in your symptoms. Take bnes-hah-byxjncm and prescription medicines only as told by [...] provider. Document Revised: 02/06/2022 Document Reviewed: 02/06/2022 [employer] Patient Education 2023 [employer]. 11/27/2024 17:34:19 Type 2 Diabetes Mellitus, Self-Care, [...] treat it right away. Always have a 72-iqvsiejvu-rxfdwh carbohydrate snack with you to treat low [...] you how to adjust your dosage. Take ljss-cie-kcygfvj and prescription medicines only as told by [...] your health care provider once every year. [place] your teeth and gums two times a [...] for more information about diabetes, please visit: [place] Diabetes Association (ADA): www.diabetes.org [place] Association of Diabetes Care and Education Specialists [...] provider. Document Revised: 11/18/2021 Document Reviewed: 11/18/2021 [employer] Patient Education 2023 [employer]. 11/26/2024 10:15:58 Peripheral Edema Peripheral Edema Peripheral [...] by your health care provider. Medicines Take lrfw-twp-enwwymt and prescription medicines only as told by [...] provider. Document Revised: 02/22/2022 Document Reviewed: 02/22/2022 [employer] Patient Education 2023 [employer]. 11/26/2024 10:15:55 Health Risks of Smoking Health [...] Department of Health and Human Services: www.smokefree.gov [place] Lung Association: www.freedomfromsmoking.org [place] Heart Association: www.heart.org Where to find more [...] provider. Document Revised: 06/22/2022 Document Reviewed: 06/22/2022 [employer] Patient Education 2023 [employer]. Follow Up Care 11/12/2024 15:55:00 With:Nigel SMITH, SHIPPING AND RECEIVING WEIGHER-SHOE COVERERParis Address: [address] [place] [phone] When: only if needed [facility] Medicine Doc 05-27-2025 NotePatient Education Endocrinology [...] treat it right away. Always have a 49-rgfxtgttk-bkmkqg carbohydrate snack with you to treat low [...] how to adjust your dosage. ??? Take vwhj-pyp-cdzckea and prescription medicines only as told by [...] of the week. ? (more content not included)...[facility]05-07[facility] History of Present illness Narrative* Susu Moody - 11/07/2024 10:00 AM EDT BRENDA on CPAP machine * Coco Dean MD - 11/07/2024 10:00 AM EDT BARIATRIC SURGERY NEW PATIENT CONSULTATION HISTORY AND PHYSICAL Date: 11/07/2024 Time: 10:47 AM Name: Carmen Bledsoe PCP: Paris Rust Insurance: Payor: [facility] MEDICAID COMMUNITY PLAN / Plan: [facility] MEDICAID COMMUNITY PLAN / Product Type: *No [...] Health Provider for the 'psych eval - Loop 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 - Will obtain old medical records to [...] Minimally Invasive General Surgery documented in this [facility]03-12-2025 NotePatient Education Health Risks of [...] of Health and Human Services: www.smokefree.gov ??? [place] Lung Association: www.freedomfromsmoking.org ??? [place] Heart Association: www.heart.org Where to find more [...] Reviewed: 06/22/2022 [employer] Patient Education ? 2023 [employer] intern[employer] Cardiovascular Hypertension, Adult High blood pressure [...] in high bloodpressure. What (more content not included)...[facility]02-[facility] Hospital Discharge instructions Patient Education [...] treat it right away. Always have a 12-efiouygqr-zmghuj carbohydrate snack with you to treat low [...] you how to adjust your dosage. Take nzys-mjm-avsxfza and prescription medicines only as told by [...] your health care provider once every year. [place] your teeth and gums two times a [...] for more information about diabetes, please visit: [place] Diabetes Association (ADA): www.diabetes.org [place] Association of Diabetes Care and Education Specialists [...] provider. Document Revised: 11/18/2021 Document Reviewed: 11/18/2021 [employer] intern[employer] Patient Education 2023 [employer]. 08/29/2024 08:03:26 Hypertension, Adult Hypertension, Adult High [...] follow-up visits. This is important. Medicines Take zsxf-uss-jzdbgkg and prescription medicines only as told by [...] provider. Document Revised: 04/27/2022 Document Reviewed: 04/27/2022 [employer] Patient Education 2023 [employer]. 08/29/2024 08:03:25 High Cholesterol High Cholesterol High [...] ask your health careprovider. General instructions Take rxnx-xhx-txyhwds and prescription medicines only as told by your health care provider. Keep all follow-up visits. This is important. Where to find more information [place] Heart Association: www.heart.org National Heart, Lung, and Blood [place]: www.nhlbi.nih.gov Contact a health care provider if: [...] provider. Document Revised: 01/21/2023 Document Reviewed: 08/24/2021 [employer] intern[employer]. Patient Education 2023 [employer]. Follow Up Care 02/22/2024 14:05:28 With:Nigel SMITH, SHIPPING AND RECEIVING WEIGHER-IRVING, Paris Hamilton Address: [address] [place] [phone] When:Within 6 Month(s) Comments:chronic care [facility] [place] 02-26-2025 NotePatient Education Cardiovascular Hypertension, Adult High [...] one 12 oz bottle (more content not included)...[facility]01-15-2025 Hospital Discharge instructions Patient Education [...] for Disease Control and Prevention: cdc.gov National [place] on Alcohol Abuse and Alcoholism: niaaa.nih.gov Alcoholics [...] the National Suicide Prevention Lifeline at or 821. This is open 24 hours a day. Text the Crisis Text Line at 224879. Summary Alcohol misuse and dependence can have [...] provider. Document Revised: 08/25/2022 Document Reviewed: 08/25/2022 [employer] Patient Education 2023 [employer]. 07/18/2024 12:21:13 Type 2 Diabetes Mellitus, Self-Care, [...] treat it right away. Always have a 09-ywjgrqadf-mvqaxm carbohydrate snack with you to treat low [...] you how to adjust your dosage. Take loxx-hnn-pqwvmcp and prescription medicines only as told by [...] your health care provider once every year. [place] your teeth and gums two times a [...] for more information about diabetes, please visit: [place] Diabetes Association (ADA): www.diabetes.org [place] Association of Diabetes Care and Education Specialists [...] provider. Document Revised: 11/18/2021 Document Reviewed: 11/18/2021 [employer] Patient Education 2023 [employer]. Follow Up Care 07/11/2024 12:07:33 With:Nigel SMITH, SHIPPING AND RECEIVING WEIGHER-SHOE COVERER, Paris Hamilton Address: [address] [place] [phone] When: only if needed Comments:keep next month appt [facility] Doc 01-15-2025 NotePatient Education [...] treat it right away. Always have a 96-hzyknnhzm-buohcv carbohydrate snack with you to treat low [...] how to adjust your dosage. ??? Take cqfx-ata-oaifngt and prescription medicines only as told by [...] of the week. ? (more content not included)...[facility]01[facility] NoteNurse Consultation Note Reason for [...] virus vaccine, inactivated 05/11/2022 Recorded SARS-CoV-2 (COVID-19) [id number] 05/11/2022 Recorded SARSCoV2 mRNA(eggaujfji-oyip-iwlmqv) vac 12/15/2021 Recorded SARS-CoV-2 (COVID-19) mRNA BNT-162b2 [...] vaccine 12/16/2017 Recorded diphtheria/pertussis, acel/tetanus adult 10/27/2014 [facility] NotePatient Education Infectious Disease Diarrhea, [...] oral rehydration solution (ORS). This is an doiw-wia-lyiybfv medicine that helps returnyour body to its [...] drinks. ? Avoid alcohol. ??? Eat bland, ydxu-ll-jndhdo foods in small amounts as you are able. These foods include bananas, applesauce, rice, lean meats, toast, and crackers. ??? Avoid spicy or fatty foods. Medicines ??? Take tvgw-qie-ozhcwxf and prescription medicines only as told by your health care provider. ??? If you were prescribed antibiotics, take them as told by your health care provider. Do not stopusing the antibiotic even if you start to feel better. General instructions ??? Wash your hands often using soap and water for at least 20 seconds. If soap and water are not available, use hand slot floorperson. Others in the household should wash their [...] provider. Document Revised: 12/07/2022 Document Reviewed: 12/07/2022 Internet college internation [employer]. Patient Education ? 2023 [employer]. Mental and Behavioral Health Alcohol Misuse and [...] friends and family. ??? (more content not included)...[facility] Hospital Discharge instructions Follow Up Care 07/05/2024 08:14:42 With:nurse visit Address: When:2 to 3 days Comments:fasting labs With:Nigel SMITH, SHIPPING AND RECEIVING WEIGHER-SHOE COVERER, Paris Hamilton Address: [address] [place] [phone] When:Within 1 Week(s) Comments:chronic care [facility] Doc 08-21-2024 Hospital Discharge [...] treat it right away. Always have a 71-xyerrgmxc-zjmzqa carbohydrate snack with you to treat low [...] you how to adjust your dosage. Take ucez-fbf-ppozprd and prescription medicines only as told by [...] your health care provider once every year. [place] your teeth and gums two times a [...] for more information about diabetes, please visit: [place] Diabetes Association (ADA): www.diabetes.org [place] Association of Diabetes Care and Education Specialists [...] provider. Document Revised: 11/18/2021 Document Reviewed: 11/18/2021 Internet college internation [employer]. Patient Education 2022 [employer]. 02/22/2024 08:31:36 Mediterranean Diet Mediterranean Diet A [...] fresh fruits and vegetables in-season from local [employer] markets. Buy plain frozen fruits and vegetables. [...] in common dishes like chili or lasagna. [place] with different cooking methods. Try roasting, broiling, [...] available, such as: ?Vegetable sticks with hummus. ?Senegalese yogurt. ?Fruit and nut trail mix. Eat [...] Quinoa. Meats and other proteins Beans. Almonds. [place] seeds. Chase nuts. Peanuts. Cod. [place]. Scallops. Shrimp. Tuna. Tilapia. Clams. Oysters. Eggs. Poultry without skin. Dairy Low-fat milk. Cheese. Senegalese yogurt. Fats and oils Extra-virgin olive oil. Avocado oil. Grapeseed oil. Beverages Water. Red wine. Herbal tea. Sweets and desserts Senegalese yogurt with honey. Baked apples. Poached pears. [place] mix. Seasonings and condiments Basil. Cilantro. Coriander. [...] Fruit canned in syrup. Vegetables Deep-fried potatoes (citizen of guinea[place]biss[place] fries). Grains Prepackaged pasta or rice dishes. [...] provider. Document Revised: 07/25/2020 Document Reviewed: 05/22/2020 Internet college internation [employer]. Patient Education 2022 [employer]. 02/22/2024 08:31:35 Hypertension, Adult Hypertension, Adult High [...] follow-up visits. This is important. Medicines Take ygtb-xkl-vrhggum and prescription medicines only as told by [...] provider. Document Revised: 04/27/2022 Document Reviewed: 04/27/2022 Internet college internation [employer]. Patient Education 2022 [employer]. 02/22/2024 08:31:33 Health Risks of Smoking Health [...] Department of Health and Human Services: www.smokefree.gov [place] Lung Association: www.freedomfromsmoking.org [place] Heart Association: www.heart.org Where to find more [...] provider. Document Revised: 06/22/2022 Document Reviewed: 06/22/2022 Internet college internation [employer]. Patient Education 2022 [employer]. Follow Up Care 11/25/2023 14:56:18 With:Nigel SMITH, SHIPPING AND RECEIVING WEIGHER-IRVING, Paris Hamilton Address: [address] [place] [phone] When:Within 6 Month(s) Comments:chronic care [facility] [place] 08-21-2024 NotePatient Education Cardiovascular Hypertension, Adult High [...] wine (148 mL), (more content not included)...[facility]06-24-2024 Note [id number] [facility] 12-23-2023 Hospital Discharge instructions Patient Education [...] Care 11/02/2023 11:19:36 With:Marjan SAMPSON, KAMALJIT Rosa, [facility] Address: [address] [place] [address], [address] [phone] When: Unknown Comments:Call Office in 2 weeks for results or follow-up Appt. [facility]06-21-2024 Evaluation + Plan noteExtracted from: Title:ANES Post-operative Note---GeneralAuthor:Zaid Benz MDDate:12/23/23 Plan Transfer/Discharge: Transfer/Discharge Discharge when meets criteria ( To home ). Extracted from:Title:ANES Pre-operative Note uthor:Zaid Benz MDDate: 12/23/23 Plan [place] Society of Anesthesiologists (ASA) physical status classification: Class III. Anesthetic Preoperative Plan: Anesthesia General. Future Appointments Appointment Date:01/27/2024 10:00:00 AM Scheduled Provider:Walker Phillip MD Location:[facility] Digestive Health Appointment Type:BADH Follow Up Appointment Date:02/22/2024 01:20:00 PM Scheduled Provider:Nigel SMITH, SHIPPING AND RECEIVING WEIGHER-SHOE COVERER, Paris Hamilton Location:[facility] Doc Appointment Type:FM Open Appointment Date:06/05/2024 01:00:00 PM Scheduled Provider:Alirio Ramirez MD [facility] [place] Appointment Type:Cardiology Follow Up (FT) Future Scheduled Tests Laboratory* Hep B Core Ab, Tot 11/02/23 * Ddvfs-3-Xiegghqsebt 11/02/23 * B-Type Natriuretic Peptide 10/25/23 * [...] * Iron Level 11/02/23 * PT 11/02/23 [facility]05-23-2024 Hospital Discharge instructions Patient Education [...] asked to follow these instructions. Medicines Take kmfh-iwv-kyqevma and prescription medicines only as told by your health care provider. Do not start taking any new medicine unless your health care provider has approved. These include nkfk-soh-lhymqjm medicines, vitamins, herbs, and supplements. Some of [...] provider. Document Revised: 05/19/2022 Document Reviewed: 05/19/2022 Internet college internation [employer]. Patient Education 2022 [employer]. 11/24/2023 19:09:12 Hepatomegaly Hepatomegaly Hepatomegaly is when [...] asked to follow these instructions. Medicines Take fxhp-drs-ichlibn and prescription medicines only as told by your health care provider. Do not start taking any new medicine unless your health care provider has approved. These include zpkh-yay-dlhprrg medicines, vitamins, herbs, and supplements. Some of [...] provider. Document Revised: 05/19/2022 Document Reviewed: 05/19/2022 Internet college intern[employer]. Patient Education 2022 [employer]. 11/24/2023 19:09:07 Type 2 Diabetes Mellitus, Self-Care, [...] treat it right away. Always have a 93-bejxnyfdj-hxejkm carbohydrate snack with you to treat low [...] you how to adjust your dosage. Take wfoo-dng-mquukgy and prescription medicines only as told by [...] your health care provider once every year. [place] your teeth and gums two times a [...] for more information about diabetes, please visit: [place] Diabetes Association (ADA): www.diabetes.org [place] Association of Diabetes Care and Education Specialists [...] provider. Document Revised: 11/18/2021 Document Reviewed: 11/18/2021 Internet college internation [employer]. Patient Education 2022 [employer]. 11/24/2023 19:09:06 Mediterranean Diet Mediterranean Diet A [...] in common dishes like chili or lasagna. [place] with different cooking methods. Try roasting, broiling, [...] available, such as: ?Vegetable sticks with hummus. ?Senegalese yogurt. ?Fruit and nut trail mix. Eat [...] Quinoa. Meats and other proteins Beans. Almonds. [place] seeds. [place] nuts. Peanuts. Cod. [place]. Scallops. Shrimp. Tuna. Tilapia. Clams. Oysters. Eggs. Poultry without skin. Dairy Low-fat milk. Cheese. Senegalese yogurt. Fats and oils Extra-virgin olive oil. Avocado oil. Grapeseed oil. Beverages Water. Red wine. Herbal tea. Sweets and desserts Senegalese yogurt with honey. Baked apples. Poached pears. [place] mix. Seasonings and condiments Basil. Cilantro. Coriander. [...] Fruit canned in syrup. Vegetables Deep-fried potatoes (citizen of guinea-bissau fries). Grains Prepackaged pasta or rice dishes. [...] provider. Document Revised: 07/25/2020 Document Reviewed: 05/22/2020 Internet college internation [employer]. Patient Education 2022 [employer]. Follow Up Care 10/26/2023 14:06:56 With:Nigel SMITH, SHIPPING AND RECEIVING WEIGHER-SHOE COVERER, Paris Hamilton Address: [address] [place] [phone] When:Within 3 Month(s) Comments:chronic care [facility] [place] 05-09-2024 NoteEchocardiology Procedure Exam Date/Time Accession # Ordering Echo Transthoracic 11/08/2023 15:28 EDT [id number] Adam SAMPSON, Alirio Hooper CPT code 57862 [id number] Reason for Exam (Echo Transthoracic Complete) I50.30;Other (please specify) Report [place] [id number] Adult Echocardiogram Report Name: CARMEN BLEDSOE Study Date: 11/08/2023 02:50 PM BP: 128/85 mmHg Patient Location: [id number] [facility] HR: 66 : 1960 Gender: Female Height: 6 in Age: 62 yrs Ethnicity: [facility] Weight: 328 lb Reason For Study: CHF [...] Alirio Ramirez MD Transcribed by: [facility] Technologist: [facility]04-24-2024 Hospital Discharge instructions Patient Education 10/26/2023 08:53:49 [...] by your health care provider. Medicines Take bhzr-cew-isvjngx and prescription medicines only as told by [...] provider. Document Revised: 02/22/2022 Document Reviewed: 02/22/2022 Internet college intern[employer]. Patient Education 2022 [employer]. 10/26/2023 08:53:45 Heart Failure, Self-Care Heart Failure, [...] when you have heart failure Medicines Take opmt-azx-zvbuskx and prescription medicines only as told by [...] provider. Document Revised: 09/28/2022 Document Reviewed: 01/10/2021 Internet college internation [employer]. Patient Education 2022 [employer]. 10/26/2023 08:53:36 DASH Eating Plan DASH Eating [...] Dairy Whole or 2% milk, cream, and zkxh-mvn-ilph. Whole or full-fat cream cheese. Whole-fat or [...] more information National Heart, Lung, and Blood [place]: www.nhlbi.nih.gov [place] Heart Association: www.heart.org Academy of Nutrition and [...] provider. Document Revised: 05/23/2020 Document Reviewed: 05/23/2020 Internet college internation [employer]. Patient Education 2022 [employer]. Follow Up Care 10/11/2023 15:08:26 With:Nigel SMITH, SHIPPING AND RECEIVING WEIGHER-SHOE COVERER, Paris Hamilton Address: [address] [place] [phone] When:Within 1 Month(s) [facility] [place] 04-08-2024 Hospital Discharge instructions Patient Education 10/10/2023 [...] treat it right away. Always have a 87-xlridtxfb-iyqtfa carbohydrate snack with you to treat low [...] you how to adjust your dosage. Take jxex-rjt-iitzhja and prescription medicines only as told by [...] your health care provider once every year. [place] your teeth and gums two times a [...] for more information about diabetes, please visit: [place] Diabetes Association (ADA): www.diabetes.org [place] Association of Diabetes Care and Education Specialists [...] provider. Document Revised: 11/18/2021 Document Reviewed: 11/18/2021 Internet college intern[employer]. Patient Education 2022 [employer]. 10/10/2023 07:17:21 Heart Failure Exacerbation Heart Failure [...] Follow these instructions at home: Medicines Take xyfn-tyf-bvobndr and prescription medicines only as told by [...] provider. Document Revised: 09/28/2022 Document Reviewed: 01/10/2021 Internet college intern[employer]. Patient Education 2022 [employer]. Follow Up Care 10/07/2023 10:35:27 With:Nigel SMITH, SHIPPING AND RECEIVING WEIGHER-SHOE COVERER, Paris Hamilton Address: [address] [place] [phone] When:Within 2 Week(s) Comments:chronic care [facility] Doc 02-07-2024 Evaluation + Plan note Diagnostic Tests Pending * CBC w/ Auto Diff 08/10/23 * Comprehensive Metabolic Panel 08/10/23 * HgbA1c 08/10/23 * Lipid Panel 08/10/23 * Microalbumin Level Urine 08/10/23 * D-Dimer 08/10/23 Future Scheduled Tests Laboratory* Vitamin D 25 Hydroxy 10/13/22 * Creatine Kinase 10/13/22 Radiology* US LE Venous Duplex Insufficiency Bilat 10/13/22 [facility] [place] 02-06-2024 Hospital Discharge instructions Patient Education 08/09/2023 [...] pray, or go to a place of christianity. Do some deep breathing. To do this, [...] sugars, or salt (sodium). General instructions Take pwgz-xsk-ywoktbo and prescription medicines only as told by [...] (ADAA): www.adaa.org Mental Health [place]: www.mentalhealthamerica.net National [place] on Mental Illness: www.param.org Contact a health [...] department or: Call your local emergency services (194 in the [place] Call a suicide crisis helpline, such as the National Suicide Prevention Lifeline at or 067 in the [place] This is open 24 hours a day in the [place] Text the Crisis Text Line at 457736 (in the [place] Summary If you are [...] provider. Document Revised: 01/13/2022 Document Reviewed: 04/30/2020 [employer] college intern[employer]. Patient Education 2022 [employer]. 08/09/2023 20:20:14 Hypertension, Adult Hypertension, Adult High [...] follow-up visits. This is important. Medicines Take mtcr-dxm-kyqvttw and prescription medicines only as told by [...] provider. Document Revised: 04/27/2022 Document Reviewed: 04/27/2022 [employer]. Patient Education 2022 [employer] 08/09/2023 20:20:10 Type 2 Diabetes Mellitus, [...] treat it right away. Always have a 83-hipxxyozv-udthyz carbohydrate snack with you to treat low [...] you how to adjust your dosage. Take gmox-abt-skbzbju and prescription medicines only as told by [...] your health care provider once every year. [place] your teeth and gums two times a [...] for more information about diabetes, please visit: [place] Diabetes Association (ADA): www.diabetes.org [place] Association of Diabetes Care and Education Specialists [...] provider. Document Revised: 11/18/2021 Document Reviewed: 11/18/2021 Internet college intern[employer]. Patient Education 2022 [employer]. 08/09/2023 20:20:09 Health Risks of Smoking Health [...] Department of Health and Human Services: www.smokefree.gov [place] Lung Association: www.freedomfromsmoking.org [place] Heart Association: www.heart.org Where to find more [...] provider. Document Revised: 06/22/2022 Document Reviewed: 06/22/2022 [employer] college intern[employer]. Patient Education 2022 [employer]. 08/09/2023 20:20:08 DASH Eating Plan DASH Eating [...] Dairy Whole or 2% milk, cream, and sxep-cvf-zkzd. Whole or full-fat cream cheese. Whole-fat or [...] more information National Heart, Lung, and Blood [place]: www.nhlbi.nih.gov [place] Heart Association: www.heart.org Academy of Nutrition and [...] provider. Document Revised: 05/23/2020 Document Reviewed: 05/23/2020 [employer] college intern[employer]. Patient Education 2022 [employer]. Follow Up Care 11/26/2022 13:53:51 With:Nigel SMITH, SHIPPING AND RECEIVING WEIGHER-SHOE COVERERParis Address: [address] [place] [phone] When:Within 6 Month(s) Comments:chronic care [facility] 01-18-2024 History of Present illness Narrative* Arlene Zuñiga - 07/21/2023 10:30 AM EST Occupational Therapy [facility] Date: 07/21/2023 Patient Name: Carmen Bledsoe : 1960 Pt Cancelled Appt due to left voice mail with no reason for cancel. Arlene Zuñiga Date: 07/21/2023 [facility] History of Present illness Narrative* Lisseth Luu - 07/20/2023 3:00 PM EST Physical Therapy [facility] Date: 07/20/2023 Patient Name: Carmen Bledsoe DOB: 1960 Patient called to cancel Appt., did not state a reason for cancellation. Lisseth Luu Date: 07/20/2023 documented [facility] History of Present illness Narrative* Lisseth Luu - 07/14/2023 10:30 AM EST Physical Therapy [facility] Date: 07/14/2023 Patient Name: Carmen Bledsoe DOB: 1960 Patient called to cancel, did not give a reason. She said she will be at her next scheduled appointment on 07/19/23. Lisseth Luu Date: 07/14/2023 documented [facility] History of Present illness Narrative* Arlene Zuñiga - 07/08/2023 1:30 PM EST Occupational Therapy [facility] Date: 07/08/2023 Patient Name: Carmen Bledsoe DOB: 1960 Pt Cancelled Appt due to no reason for cancel. Arlene Zuñiga Date: 07/08/2023 documented in [facility]RET[facility] History of Present illness Narrative* Negra, Fariba Sepulveda - 07/06/2023 10:30 AM EST Physical Therapy [facility] Date: 07/06/2023 Patient Name: Carmen Bledsoe : 1960 Patient is not able to a make this appointment, she rescheduled for tomorrow. Fariba Sepulveda Shock Date: 07/06/2023 documented in this encounterRET[facility] Hospital Discharge instructions Patient Education 05/09/2023 [...] back becomes more flexible: 1.Get into a czggk-eom-grqvf position on a firm bed or the [...] provider. Document Revised: 12/15/2021 Document Reviewed: 09/02/2021 [employer] Patient Education 2022 [employer] Follow Up Care 05/06/2023 08:05:37 With:Ansley Carrero PA-C Address: [address] [place] [address] [place] [phone] When: only if needed Comments:Only if needed [facility] Doc 10-23-2023 Hospital Discharge [...] Follow these instructions at home: Medicines Take lknz-rda-drcgcdr and prescription medicines only as told by your health care provider. Ask your health care provider if the medicine prescribed to you: ?Requires you to avoid driving or using heavy machinery. ?Can cause constipation. You may need to take these actions to prevent or treat constipation: ?Drink enough fluid to keep your urine pale yellow. ?Take stid-gqk-tdudomh or prescription medicines. ?Eat foods that are [...] provider. Document Revised: 07/09/2019 Document Reviewed: 07/09/2019 [employer] Patient Education 2022 [employer] 04/25/2023 19:33:56 Back Exercises Back Exercises [...] back becomes more flexible: 1.Get into a vwklt-nhs-gazam position on a firm bed or the [...] provider. Document Revised: 12/15/2021 Document Reviewed: 09/02/2021 [employer] Patient Education 2022 [employer]. Follow Up Care 04/21/2023 13:02:20 With:Nigel SMITH, SHIPPING AND RECEIVING WEIGHER-SHOE COVERER, Paris Hamilton Address: [address] [place] [phone] When: only if needed [facility] Doc 09-14-2023 Hospital Discharge instructions Patient Education 03/17/2023 [...] treat it right away. Always have a 95-oihlwzrjy-pwtybx carbohydrate snack with you to treat low [...] you how to adjust your dosage. Take taey-lnw-fbpeplt and prescription medicines only as told by [...] your health care provider once every year. [place] your teeth and gums two times a [...] for more information about diabetes, please visit: [place] Diabetes Association (ADA): www.diabetes.org [place] Association of Diabetes Care and Education Specialists [...] provider. Document Revised: 11/18/2021 Document Reviewed: 11/18/2021 [employer] Patient Education 2022 [employer]. 03/17/2023 14:42:58 DASH Eating Plan DASH Eating [...] Dairy Whole or 2% milk, cream, and opmm-rhc-ymzg. Whole or full-fat cream cheese. Whole-fat or [...] more information National Heart, Lung, and Blood [place]: www.nhlbi.nih.gov [place] Heart Association: www.heart.org Academy of Nutrition and [...] provider. Document Revised: 05/23/2020 Document Reviewed: 05/23/2020 [employer] Patient Education 2022 [employer]. 03/17/2023 14:42:56 Insomnia Insomnia Insomnia is a [...] go back to bed. General instructions Take qiyf-hdn-achobbq and prescription medicines only as told by [...] the National Suicide Prevention Lifeline at or 187. This is open 24 hours a day. Text the Crisis Text Line at 602419. Summary Insomnia is a sleep disorder that [...] provider. Document Revised: 05/31/2022 Document Reviewed: 05/31/2022 [employer] Patient Education 2022 [employer]. Follow Up Care 03/15/2023 07:59:17 With:Nigel SMITH, SHIPPING AND RECEIVING WEIGHER-SHOE COVERER, Paris Hamilton Address: [address] [place] [phone] When: only if needed Comments:keep may appt, fax sleep study to [facility] [place] 05-25-2023 Hospital Discharge instructions Patient Education 11/25/2022 [...] cheese. Low-sodium cottage cheese. Fats and oils Cardinal, canola, soybean, flaxseed, avocado, or sunflower oil. Sweets and desserts Applesauce. Granola bars. Sugar-free pudding and gelatin. Frozen fruit bars. Seasoning and other foods Fresh and dried herbs. Lemon or federated indians of [place] juice. Vinegar. Low-sodium ketchup. Salt- free marinades, saladdressings, sauces, and seasonings. The items listed above may not be a complete list of foods and beverages you can eat. Contact a dietitian for more information. Foods to avoid Fruits Fruits that are dried with sodium-containing preservatives. Vegetables Canned vegetables. Frozen vegetables with sauce or seasonings. Creamed vegetables. Singaporean fries. Onion rings. Pickled vegetables and sauerkraut. [...] Salted nuts and seeds. Dairy Whole milk, stnh-fxy-jish, and cream. Buttermilk. Processed cheese, cheese spreads, [...] and bouillon cubes. Horseradish, ketchup, and mustard. Fuller Hospitaltershire sauce. Teriyaki sauce, soy sauce (including [...] provider. Document Revised: 02/02/2021 Document Reviewed: 02/02/2021 [employer] Patient Education 2022 [employer]. 11/25/2022 15:14:21 DASH Eating Plan DASH Eating [...] Dairy Whole or 2% milk, cream, and pezw-xhb-fmrl. Whole or full-fat cream cheese. Whole-fat or [...] more information National Heart, Lung, and Blood [place]: www.nhlbi.nih.gov [place] Heart Association: www.heart.org Academy of Nutrition and [...] provider. Document Revised: 05/23/2020 Document Reviewed: 05/23/2020 [employer] Patient Education 2022 [employer]. Follow Up Care 11/10/2022 07:47:50 With:Nigel SMITH, SHIPPING AND RECEIVING WEIGHER-Paris VILLATORO Address: [address] [place] [phone] When:Within 6 Month(s) Comments:chronic care [facility] Doc 04-12-2023 Hospital Discharge [...] when you have heart failure Medicines Take nzeg-rjx-hnzkbnq and prescription medicines only as told by [...] 10/03/2019 Document Revised: 10/02/2019 Document Reviewed: 10/03/2019 [employer] Patient Education 2020 [employer]. 10/13/2022 08:14:26 Heart Failure Medicines Heart Failure [...] 11/04/2017 Document Revised: 07/05/2018 Document Reviewed: 11/04/2017 [employer]. Patient Education 2020 [employer]. 10/13/2022 08:14:22 Heart Failure Eating Plan Heart [...] lifestyle and working with a diet and astronaut mission specialist (dietitian)to choose the right foods may [...] cheese. Low-sodium cottage cheese. Fats and oils Cardinal, canola, soybean, flaxseed, or sunflower oil. Avocado. Sweets and desserts Apple sauce. Granola bars. Sugar-free pudding and gelatin. Frozen fruit bars. Seasoning and other foods Fresh and dried herbs. Lemon or federated indians of graton juice. Vinegar. Low-sodium ketchup. Salt- free marinades, [...] vegetables with sauce or seasonings. Creamed vegetables. Singaporean fries. Onion rings. Pickled vegetables and sauerkraut. [...] Salted nuts and seeds. Dairy Whole milk, hzrr-hvh-tkow, and cream. Buttermilk. Processed cheese, cheese spreads, [...] 11/04/2017 Document Revised: 08/16/2019 Document Reviewed: 11/04/2017 [employer] Patient Education 2020 [employer] 10/13/2022 08:14:21 Heart Failure and Exercise [...] 11/01/2017 Document Revised: 11/04/2017 Document Reviewed: 11/01/2017 [employer] Patient Education 2020 [employer] 10/13/2022 08:14:18 Form - Daily Weight [...] With:Carmen Haley DO Address: When:Within 1 Month(s) [facility]03-29-2023 Hospital Discharge instructions Patient Education [...] require a prescription and some youcan purchase ztcw-cju-ugsvdvi. Medicines may have nicotine in them to [...] 06/14/2002 Document Revised: 09/07/2019 Document Reviewed: 09/08/2019 [employer] Patient Education 2020 [employer]. 09/29/2022 12:38:01 Heart Failure Eating Plan Heart [...] lifestyle and working with a diet and astronaut mission specialist (dietitian)to choose the right foods may [...] cheese. Low-sodium cottage cheese. Fats and oils Cardinal, canola, soybean, flaxseed, or sunflower oil. Avocado. Sweets and desserts Apple sauce. Granola bars. Sugar-free pudding and gelatin. Frozen fruit bars. Seasoning and other foods Fresh and dried herbs. Lemon or federated indians of graton juice. Vinegar. Low-sodium ketchup. Salt- free marinades, [...] vegetables with sauce or seasonings. Creamed vegetables. Singaporean fries. Onion rings. Pickled vegetables and sauerkraut. [...] Salted nuts and seeds. Dairy Whole milk, cynq-cie-wiuq, and cream. Buttermilk. Processed cheese, cheese spreads, [...] and bouillon cubes. Horseradish, ketchup, and mustard. [facility] Hospital[facility] sauce. Teriyaki sauce, soy sauce (including [...] 11/04/2017 Document Revised: 08/16/2019 Document Reviewed: 11/04/2017 [employer] Patient Education 2020 [employer] 09/29/2022 12:37:57 Form - Daily Weight [...] With:Carmen Haley DO Address: When:Within 2 Week(s) [facility]03-24-2023 Hospital Discharge instructions Patient Education [...] 06/22/2004 Document Revised: 04/13/2019 Document Reviewed: 11/29/2016 [employer] Patient Education 2020 [employer]. Follow Up Care 09/13/2022 14:16:08 With:Nigel SMITH, SHIPPING AND RECEIVING WEIGHER-SHOE COVERER, [place] Haimlton Address: [address] [place] [phone] When: Unknown Comments:see nurse for Dr Haley's lab Tuesday. Next primary care visit in November [facility] [place] 03-22-2023 Hospital Discharge instructions Patient Education 09/22/2022 [...] 06/20/2006 Document Revised: 09/07/2019 Document Reviewed: 09/07/2019 [employer] Patient Education 2020 [employer]. 09/22/2022 09:54:51 Heart Failure Medicines Heart Failure [...] 11/04/2017 Document Revised: 07/05/2018 Document Reviewed: 11/04/2017 [employer] Patient Education 2020 [employer]. 09/22/2022 09:54:49 Heart Failure Eating Plan Heart [...] lifestyle and working with a diet and astronaut mission specialist (dietitian)to choose the right foods may [...] cheese. Low-sodium cottage cheese. Fats and oils Cardinal, canola, soybean, flaxseed, or sunflower oil. Avocado. Sweets and desserts Apple sauce. Granola bars. Sugar-free pudding and gelatin. Frozen fruit bars. Seasoning and other foods Fresh and dried herbs. Lemon or federated indians of graton juice. Vinegar. Low-sodium ketchup. Salt- free marinades, [...] vegetables with sauce or seasonings. Creamed vegetables. Singaporean fries. Onion rings. Pickled vegetables and sauerkraut. [...] Salted nuts and seeds. Dairy Whole milk, pkpy-tep-fbcp, and cream. Buttermilk. Processed cheese, cheese spreads, [...] 11/04/2017 Document Revised: 08/16/2019 Document Reviewed: 11/04/2017 [employer] Patient Education 2019 [employer]. 09/22/2022 09:54:44 Heart Failure Action Plan Heart [...] symptoms. Follow these instructions at home: Take qfhj-eqf-unlxqil and prescription medicines only as told by your health care provider. Weigh yourself daily. Your target weight is lb ( kg). ?Call your health care provider if you gain more than lb ( kg) in a day, or more than lb ( kg) in one week. Eat a heart-healthy diet. Work with a diet and astronaut mission specialist (dietitian) to create an eatingplan that is best for you. Keep all follow-up visits as told by your health care provider. This is important. Where to find more information [place] [employer]: www.heart.org Summary Follow the action [...] 07/30/2017 Document Revised: 06/02/2018 Document Reviewed: 07/30/2017 [employer] Patient Education 2020 [employer]. 09/22/2022 09:53:36 Pulmonary Edema Pulmonary Edema Pulmonary [...] Follow these instructions at home: Medicines Take lgon-wdj-rnvanbn and prescription medicines only as told by [...] infections or injury to the lungs. Take ruqj-kuw-jctkwgs and prescription medicines only as told by your health care provider. This information is not intended to replace advice given to you by your health care provider. Make sure you discuss any questions you have with your health care provider. Document Released: 09/10/2003 Document Revised: 06/02/2018 Document Reviewed: 08/31/2017 [employer] Patient Education 2020 [employer]. 09/22/2022 09:53:16 Steps to Quit Smoking Steps [...] require a prescription and some youcan purchase azun-pmp-einbehj. Medicines may have nicotine in them to [...] 06/14/2002 Document Revised: 09/07/2019 Document Reviewed: 09/08/2019 [employer] Patient Education 2019 [employer]. 09/22/2022 09:53:10 Health Risks of Smoking Health [...] these methods. Where to find more information [place] [employer]: www.lung.org [employer]: www.cancer.org Summary Smoking cigarettes is [...] 07/28/2005 Document Revised: 09/21/2018 Document Reviewed: 06/24/2017 [employer] Patient Education 2020 [employer]. 09/22/2022 09:52:53 Cooking With Less Salt Cooking With Less Salt Cooking with less salt is one way to reduce the amount of sodium you get from food. Depending on your condition and overall health, your health care provider or diet and astronaut mission specialist (dietitian) may recommend that you reduce [...] foods. Use sodium-free baking soda when baking. Kahite, braise, or roast foods to add flavor [...] foods you can pair it with. Herbs [place] leaves Soups, meat and vegetable dishes, and spaghetti sauce. Basil Mongolian dishes, soups, pasta, and fish dishes. Cilantro Meat, poultry, and vegetable dishes. [place] powder Marinades and Moroccan dishes. Chives Salad dressings and potato dishes. Cumin Moroccan dishes, couscous, and meat dishes. Dill Fish dishes, sauces, and salads. Fennel Meat and vegetable dishes, breads, and cookies. Garlic (do not use garlic salt) Mongolian dishes, meat dishes, salad dressings, and sauces. Marjoram Soups, potato dishes, and meat dishes. Oregano Pizza and spaghetti sauce. Parsley Salads, soups, pasta, and meat dishes. Zakia Mongolian dishes, salad dressings, soups, and red meats. [...] and low-sodium cheeses. Good cheese choices include Portuguese, [place] K[place]on, and mozzarella. Always check the label [...] 06/20/2006 Document Revised: 06/02/2018 Document Reviewed: 06/28/2017 [employer] Patient Education 2020 [employer]. 09/22/2022 09:52:44 BMI for Adults BMI for [...] height. This can be done either in [place] Islander ([place] or metric measurements. Note that charts are available to help you find your BMI quickly and easily without having to do these calculations yourself. To calculate your BMI in [place]er [place] measurements, your health care provider will: [...] medical problems. BMI can be measured using Cook Islander measurements or metric measurements. To interpret your [...] 03/01/2005 Document Revised: 06/02/2018 Document Reviewed: 05/03/2018 [employer] Patient Education 2020 [employer]. Follow Up Care 09/17/2022 09:26:53 With:Carmen Haley DO Address: When:09/29/2022 [facility]03-13-2023 Progress note Author José [facility] September 13, 2022 9:31pmNote Date/TimeMarch 2022 9:31[place] [address] Hospitalist Progress Note Signed Patient: Carmen Bledsoe MR#: [id number] : 1960 Acct:[id number] Age/Sex: 61 / F Adm Date: 3 Loc: 4P Room: [address] [place] [address] Type: ADM IN Attending Dr: José Sanchez [...] <Electronically signed by José Sanchez MD> 09/13/222130 [facility] Work Phone: 1(301) 534-271403-12-2023 Progress note Author Marilyn Sun [facility] September 12, 2022 12:22pmNote Date/TimeMarch 2022 12:13[place] [address] Hospitalist Progress Note Signed Patient: Carmen Bledsoe MR#: [id number] : 1960 Acct:[id number] Age/Sex: 61 / F Adm Date: 3 Loc: Room: [address] [place] [address] Type: ADM IN Attending Dr: Marilyn Sun [...] signed by Marilyn Sun MD> 09/12/22 1222 [facility] Work Phone: 1(914) 137-289103-11-2023 History and physical note Author Marilyn Sun [facility] September 11, 2022 11:38amNote Date/TimeMarch 2022 1:36pmMunger[place] [address] Hospitalist H&P Signed with Addenda Patient: Carmen Bledsoe MR#: [id number] : 1960 Acct:[id number] Age/Sex: 61 / F Adm Date: 3 Loc: 4N Room: [address] [place] [address] Type: ADM IN Attending Dr: Marilyn Sun [...] Addendum Documented By: Marilyn Sun MD 09/10/22 8486 Addendum Signed By: <Electronically signed by Marilyn Sun MD> 09/10/22 0119 HPI DATE OF EXAMINATION: 09/10/22 CHIEF COMPLAINT: [...] % (Auto) 21.5 % (.) 09/10/22 11:26 [place] % (Auto) 5.1 % (.) 09/10/22 11:26 Eos % (Auto) 1.6 % (.) 09/10/22 11: Baso % (Auto) 1.1 % (.) 09/10/22 11: Nucleat RBC Rel Count 0.3 /100 WBC (0-0.5) 09/10/22 11: Neut # (Auto) 3.7 x10E3/uL (1.8-7.7) 09/10/22 11: Lymph # (Auto) 1.1 x10E3/uL (1.00-4.8) 09/10/22 11:26 [place] # (Auto) 0.3 x10E3/uL (0.0-0.8) 09/10/22 11: [...] bedside. All questions answered. In agreement with [facility] -Based on my assessment and [...] <Electronically signed by Marilyn Sun MD> 09/10/22 1549 [facility] Work Phone: 1(565) 111-593603-11-2023 Progress note Author Marilyn Sun [facility] September 11, 2022 11:36amNote Date/TimeMarch 2022 11:07[place] [address] Hospitalist Progress Note Signed Patient: Carmen Bledsoe MR#: [id number] : 1960 Acct:[id number] Age/Sex: 61 / F Adm Date: 3 Loc: 4N Room: 0L8897-0 Type: ADM IN Attending Dr: Marilyn Sun [...] agreement with the plan. Will transfer to [facility] for now. Marilyn Escobedo MD Internal Medicine Hospitalist Attending Physician Documented By: Marilyn Sun MD 09/11/22 11 04 Signed By: <Electronically signed by Marilyn Sun MD> 09/11/22 8598 [facility] Work Phone: 1(829) 266-158603-06-2023 Hospital Discharge instructions Patient Education 09/06/2022 12:23:58 [...] hospital. Follow these instructions at home: Take nvjn-uyt-xinrodt and prescription medicines only as told by [...] cantaloupe, kiwi, oranges, tomatoes, asparagus, and potatoes. ?Rains juice. ?Tomato juice. ?Red meats. ?Yogurt. Keep [...] 06/20/2006 Document Revised: 01/31/2019 Document Reviewed: 01/31/2019 [employer] Patient Education 2020 [employer]. Follow Up Care 08/23/2022 15:13:00 With:Nigel SMITH, SHIPPING AND RECEIVING WEIGHER-SHOE COVERER, [place] Jeannette. Address: [address] [place] [phone] When: Unknown Comments:telephone result to maribel. See referrals [facility] Doc 02-09-2023 Hospital Discharge [...] plan? Your health care provider or certified indoor environmentalist can help you make a plan for [...] stress. Your health care provider or certified indoor environmentalist can help you make a plan for [...] 09/09/2004 Document Revised: 01/12/2018 Document Reviewed: 11/29/2016 [employer] Patient Education 2020 [employer]. Follow Up Care 08/12/2022 10:06:58 With:Nigel SMITH, SHIPPING AND RECEIVING WEIGHER-SHOE COVERER, [place] Hamilton Address: [address] [place] [phone] When: Unknown Comments:Echo order for Doc. Telephone result to patient [facility] Doc 06-29-2022 Hospital Discharge [...] of hard liquor (1 oz). Medicines Take uklg-dye-pfwxoer and prescription medicines only as told by [...] Centers for Disease Control and Prevention: www.cdc.gov/heartdisease [place] Heart Association: www.heart.org ?Take a free online [...] 02/01/2005 Document Revised: 07/05/2018 Document Reviewed: 07/05/2018 [employer] Patient Education 2020 [employer]. Follow Up Care 12/24/2021 08:31:22 With:Parish PATE Address: [address] [place], [place] [id number]- When:Within 6 Month(s) [facility] Doc 01-10-2022 History of Present illness Narrative* Case [...] BMR: 2209 calories Est. total calorie needs: ~3467-0041 Client overall goal for weight is for [...] pizza, or consume foods from community, including kenyan food or fast foods. Has not been [...] the referral. Education session duration: 60 minutes; (5055-1970). Reminder to ordering Physician/Provider: Diabetes and CKD (non-dialysis) patients may have 2 hours of MNT education in subsequent years. Hours can be spread over any number of visits. documented in this [email or web address] Phone: 1(384) 409-612801-06-2022 History of Present illness Narrative* Sarah Salmon [...] Carmen Bledsoe Referring Provider: DARLEEN Bernardo NP [place] to learning: Considerations: []Language []Emotional []Health Literacy []Cognitive []Memory changes []Financial []Cultural []Holiness []Vision []Hearing []Speech []Lack of desire []Literacy [...] the relationship of blood glucose levels to roller engraver complications of diabetes.Identify preventative measures and standard [...] ) ADA website: Http://www.diabetes.org ( ) Http: //www.[employer]ist[employer]russ/faq.htm ( ) Diabetes Forecast [place] you may get this information on the ADA web site. ( ) Diabetes Interview - [place] ( ) Diabetes Self Management (bi-monthly magazine) ( x ) Support group: Doc tuesday of the month at 9 am ( ) Health Journeys Image Paths (relaxation tapes for people with Diabetes) ( ) Your suggestions: Sarah Salmon RN [facility] Diabetes clinic educator 07/09/2021 10:17 AM documented in this [facility] Work Phone: 1(215) 485-730012-30-2021 History of Present illness Narrative* Sarah Salmon [...] Carmen Bledsoe Referring Provider: DARLEEN Bernardo NP [place] to learning: Considerations: []Language []Emotional []Health Literacy []Cognitive []Memory changes []Financial []Cultural []Holiness []Vision []Hearing []Speech []Lack of desire []Literacy [...] the relationship of blood glucose levels to roller engraver complications of diabetes.Identify preventative measures and standard [...] ) ADA website: Http://www.diabetes.org ( ) Http: //www.[employer]Mist[employer]russ/faq.htm ( ) Diabetes Forecast [place] you may get this information on the ADA web site. ( ) Diabetes Interview - [place] ( ) Diabetes Self Management (bi-monthly magazine) ( x ) Support group: Doc third Tuesday of the month at 9 am ( ) Health Journeys Image Paths (relaxation tapes for people with Diabetes) ( ) Your suggestions: Sarah Salmon RN [facility] Diabetes clinic educator 07/02/2021 10:41 AM documented in this [facility] Work Phone: evaluation + Plan note Future Appointments Appointment Date:07/09/2022 11:00:00 AM Scheduled Provider:Parish PATE Location:[facility] Appointment Type:[facility] Medicine Doc Evaluation + Plan [facility] Medicine Doc Evaluation + Plan note Future Appointments Appointment Date:09/24/2022 02:40:00 PM Scheduled Provider:Lupis SCHWARTZ MD, FAAFP Location:[facility] Appointment Type: ER/Hospital Follow Up Appointment Date:09/29/2022 11:30:00 AM Scheduled Provider:Carmen Haley DO [facility] [place] Appointment Type:Cardiology Follow Up (FT) Future Scheduled Tests Laboratory* B-Type Natriuretic Peptide 09/22/22 * Basic Metabolic Panel 09/22/22 * Basic Metabolic Panel 09/22/22 Radiology* NM Myocardial Spect Rest/Stress 2 Day 09[facility]22/22 [facility] Future Appointments Appointment Date:09/27/2022 10:40:00 AM Scheduled Provider: Location:[facility] Appointment Type: Nurse Visit Appointment Date:09/29/2022 11:30:00 AM Scheduled Provider:Carmen Haley DO Location:[facility] Appointment Type:Cardiology Follow Up (FT) Appointment Date:11/26/2022 02:40:00 PM Scheduled Provider:SRINIVAS Pereyra Tammy L. Location:[facility] Appointment Type: Open Future Scheduled Tests Laboratory* B-Type Natriuretic Peptide 09/22/22 * Basic Metabolic Panel 09/22/22 * Basic Metabolic Panel 09/22/22 Radiology* NM Myocardial Spect Rest/Stress 2 Day 09/22/22 [facility] Evaluation + Plan note Future Appointments Appointment Date:09/29/2022 11:30:00 AM Scheduled Provider:Carmen Haley DO [facility] Appointment Type:Cardiology Follow Up (FT) Appointment Date:11/26/2022 02:40:00 PM Scheduled Provider:SRINIVAS Pereyra Tammy L. Location:[facility] Appointment Type: Open Future Scheduled Tests Laboratory* Basic Metabolic Panel 09/22/22 Radiology* NM Myocardial Spect Rest/Stress 2 Day 09/22/22 [facility] Evaluation + Plan note Future Appointments Appointment Date:09/29/2022 11:30:00 AM Scheduled Provider:Carmen Haley DO [facility] Appointment Type:Cardiology Follow Up (FT) Appointment Date:11/26/2022 02:40:00 PM Scheduled Provider:SRINIVAS Pereyra Tammy L. Location:[facility] Appointment Type: Open Diagnostic Tests Pending * Basic Metabolic Panel 09/27/22 Future Scheduled Tests Laboratory* Basic Metabolic Panel 09/22/22 Radiology* NM Myocardial Spect Rest/Stress 2 Day 09/22/22 [facility] App[facility]ments Appointment Date:10/13/2022 09:00:00 AM Scheduled Provider:Carmen Haley DO [facility] Appointment Type:Cardiology Follow Up (FT) Appointment Date:10/18/2022 01:40:00 PM Scheduled Provider:Lupis SCHWARTZ MD, FAAFP Location:[facility] Appointment Type:FM Open Appointment Date:11/26/2022 02:40:00 PM Scheduled Provider:SRINIVAS Pereyra Tammy L. Location:[facility] Appointment Type: Open Future Scheduled Tests Laboratory* Basic Metabolic Panel 09/22/22 Radiology* NM Myocardial Spect Rest/Stress 2 Day 09/22/22 [facility] Future Appointments Appointment Date:10/13/2022 09:00:00 AM Scheduled Provider:Carmen Haley DO [facility] [place] Appointment Type:Cardiology Follow Up () Appointment Date:10/18/2022 01:40:00 PM Scheduled Provider:Lupis SCHWARTZ MD, FAAFP Location:[facility] Appointment Type:FM Open Appointment Date:10/19/2022 02:00:00 PM Scheduled Provider: [facility] Type:CV EKG () Appointment Date:10/19/2022 02:30:00 PM Scheduled Provider: [facility] App[facility] Type:NM Myocard Spect Multi Rest/Stress-Res Appointment Date:10/19/2022 03:30:00 PM Scheduled Provider: [facility] Appoint[facility] Type:NM Myocard Spect Multi Rest/Stress - R Appointment Date:10/20/2022 02:30:00 PM Scheduled Provider: [facility] Appointment Type:NM Myocard Spect MultiRest/Stress-Stre Appointment Date:10/20/2022 03:30:00 PM Scheduled Provider: [facility] Appointment Type:NM Myocard Spect Multi Rest/Stress - S Appointment Date:11/26/2022 02:40:00 PM Scheduled Provider:SRINIVAS Pereyra Tammy L. Location:[facility] Appointment Type: Open Future Scheduled Tests Radiology* NM Myocardial Spect Rest/Stress 2 Day 10/19/22 [facility] Doc Evaluation + Plan note Future Appointments Appointment Date:10/18/2022 01:40:00 PM Scheduled Provider:Lupis SCHWARTZ MD, FAAFP Location:[facility] Appointment Type:FM Open Appointment Date:10/19/2022 02:00:00 PM Scheduled Provider: [facility] Type:CV EKG (FT) Appointment Date:10/19/2022 02:30:00 PM Scheduled Provider: [facility] Appointment Type:NM Myocard Spect Multi Rest/Stress-Res Appointment Date:10/19/2022 03:30:00 PM Scheduled Provider: Location[facility] Appointment Type:NM Myocard Spect Multi Rest/Stress - R Appointment Date:10/20/2022 02:30:00 PM Scheduled Provider: [facility] Appoint[facility] Type:NM Myocard Spect MultiRest/Stress-Stre Appointment Date:10/20/2022 03:30:00 PM Scheduled Provider: [facility] Appoint[facility] Type:NM Myocard Spect Multi Rest/Stress - S Appointment Date:11/26/2022 02:40:00 PM Scheduled Provider:SRINIVAS Pereyra Tammy L. Location:[facility] Appointment Type: Open Future Scheduled Tests Laboratory* Vitamin D 25 Hydroxy 10/13/22 * Creatine Kinase 10/13/22 Radiology* US LE Venous Duplex Insufficiency Bilat 10/13/22 * US PVR Lower EXT Complete Bilat 10/13/22 * NM Myocardial Spect Rest/Stress 2 Day 10/19/22 [facility] Future Appointments Appointment Date:05/30/2023 02:00:00 PM Scheduled Provider:SRINIVAS Pereyra Tammy L. Location:[facility] Appointment Type: Open Future Scheduled Tests Laboratory* Vitamin D 25 Hydroxy 10/13/22 * Creatine Kinase 10/13/22 Radiology* US LE Venous Duplex Insufficiency Bilat 10/13/22 [facility] Doc Evaluation + Plan note Future Appointments Appointment Date:04/26/2023 10:00:00 AM Scheduled Provider:Alirio Ramirez MD [facility] [place] Appointment Type:Cardiology Follow Up (FT) Appointment Date:05/30/2023 02:00:00 PM Scheduled Provider:SRINIVAS Pereyra Tammy L. Location:[facility] Appointment Type:FM Open Future Scheduled Tests Laboratory* Vitamin D 25 Hydroxy 10/13/22 * Creatine Kinase 10/13/22 Radiology* US LE Venous Duplex Insufficiency Bilat 10/13/22 * US PVR Lower EXT Complete Bilat 01/11/23 [facility] Future Appointments Appointment Date:05/09/2023 01:00:00 PM Scheduled Provider: [facility] Appoint[facility] Type:US Duplex Procedures (FT) Appointment Date:05/30/2023 02:00:00 PM Scheduled Provider:SRNIIVAS Pereyra Tammy L. Location:[facility] Appointment Type: Open Future Scheduled Tests Laboratory* Vitamin D 25 Hydroxy 10/13/22 * Creatine Kinase 10/13/22 Radiology* US PVR w/ Exercise 05/09/23 * US LE Venous Duplex Insufficiency Bilat 10/13/22 [facility] Evaluation + Plan note Future Appointments Appointment Date:07/25/2023 02:00:00 PM Scheduled Provider:SRINIVAS Pereyra Tammy L. Location:[facility] Appointment Type: Open Future Scheduled Tests Laboratory* Vitamin D 25 Hydroxy 10/13/22 * Creatine Kinase 10/13/22 Radiology* US LE Venous Duplex Insufficiency Bilat 10/13/22 [facility] Future App[facility]ments Appointment Date:10/25/2023 03:00:00 PM Scheduled Provider:Alirio Ramirez MD [facility] [place] Appointment Type:Cardiology Follow Up (FT) Appointment Date:10/26/2023 01:20:00 PM Scheduled Provider:SRINIVAS Pereyra Tammy L. Location:[facility] Appointment Type: Open Appointment Date:11/02/2023 10:30:00 AM Scheduled Provider:Walker Phillip MD Location:[facility] Appointment Type:BAD New Patient Future Scheduled Tests Laboratory* Vitamin D 25 Hydroxy 10/13/22 * Creatine Kinase 10/13/22 Radiology* US LE Venous Duplex Insufficiency Bilat 10/13/22 [facility] Evaluation + Plan note Future Appointments Appointment Date:10/26/2023 01:20:00 PM Scheduled Provider:SRINIVAS Pereyra Tammy L. Location:[facility] Appointment Type: Open Appointment Date:11/02/2023 10:30:00 AM Scheduled Provider:Walker Phillip MD Location:[facility] Appointment Type:[facility] New Patient Appointment Date:11/10/2023 03:00:00 PM Scheduled Provider: Location:[facility] Appointment Type: Nurse Visit Appointment Date:12/06/2023 03:15:00 PM Scheduled Provider:Alirio Ramirez MD [facility] Appointment Type:Cardiology Follow Up (FT) Future Scheduled Tests Laboratory* B-Type Natriuretic Peptide 10/25/23 * Basic Metabolic Panel 10/25/23 Radiology* Echo Transthoracic Complete 10/25/23 [facility] Future Appointments Appointment Date:11/02/2023 10:30:00 AM Scheduled Provider:Walker Phillip MD Location:[facility] Appointment Type:[facility] New Patient Appointment Date:11/08/2023 03:00:00 PM Scheduled Provider: Location:[facility] Appointment Type:CV Echo (FT) Appointment Date:11/10/2023 03:00:00 PM Scheduled Provider: Location:[facility] Appointment Type: Nurse Visit Appointment Date:11/25/2023 02:40:00 PM Scheduled Provider:SRINIVAS Pereyra Tammy L. Location:[facility] Appointment Type: Open Appointment Date:12/06/2023 03:15:00 PM Scheduled Provider:Alirio Ramirez MD [facility] Appointment Type:Cardiology Follow Up (FT) Future Scheduled Tests Laboratory* B-Type Natriuretic Peptide 10/25/23 * Basic Metabolic Panel 10/25/23 Radiology* Echo Transthoracic Complete 11/08/23 [facility] [place] Evaluation + Plan note Future Appointments Appointment Date:11/08/2023 03:00:00 PM Scheduled Provider: [facility] Appointment Type:CV Echo (FT) Appointment Date:11/10/2023 03:00:00 PM Scheduled Provider: Location:[facility] Appointment Type:FM Nurse Visit Appointment Date:11/25/2023 02:40:00 PM Scheduled Provider:SRINIVAS Pereyra Tammy L. Location:[facility] Appointment Type:FM Open Appointment Date:12/06/2023 03:15:00 PM Scheduled Provider:Alirio Ramirez MD [facility] [place] Appointment Type:Cardiology Follow Up (FT) Appointment Date:12/23/2023 10:30:00 AM Scheduled Provider: Location:[facility] Appointment Type:Surgery FT Appointment Date:12/23/2023 12:00:00 PM Scheduled Provider: Location:[facility] Appointment Type:Surgery FT Appointment Date:01/13/2024 10:45:00 AM Scheduled Provider:Walker Phillip MD Location:[facility] Appointment Type:[facility] Follow Up Future Scheduled Tests Laboratory* Hep B Core Ab, Tot 11/02/23 * Usijz-0-Jfuaarcmbpj 11/02/23 * B-Type Natriuretic Peptide 10/25/23 * [...] PT 11/02/23 Radiology* Echo Transthoracic Complete 11/08/23 [facility] Evaluation + Plan note Future Appointments Appointment Date:11/10/2023 03:00:00 PM Scheduled Provider: Location:[facility] [place] Appointment Type:FM Nurse Visit Appointment Date:11/25/2023 02:40:00 PM Scheduled Provider:Nigel SMITH, [place] ESPINO Location:[facility] Appointment Type:FM Open Appointment Date:12/06/2023 03:15:00 PM Scheduled Provider:Alirio Ramirez MD [facility] Type:Cardiology Follow Up (FT) Appointment Date:12/23/2023 10:30:00 AM Scheduled Provider: Location:[facility] Appointment Type:Surgery FT Appointment Date:12/23/2023 12:00:00 PM Scheduled Provider: Location:[facility] Appointment Type:Surgery FT Appointment Date:01/13/2024 10:45:00 AM Scheduled Provider:Walker Phillip MD Location:[facility] Appointment Type:[facility] Follow Up Future Scheduled Tests Laboratory* Hep B Core Ab, Tot 11/02/23 * Wqakt-1-Lzoiubdlshf 11/02/23 * B-Type Natriuretic Peptide 10/25/23 * [...] * Iron Level 11/02/23 * PT 11/02/23 [facility] Future Appointments Appointment Date:12/06/2023 03:15:00 PM Scheduled Provider:Alirio Ramirez MD [facility] Type:Cardiology Follow Up (FT) Appointment Date:12/23/2023 10:30:00 AM Scheduled Provider: Location:[facility] Appointment Type:Surgery FT Appointment Date:12/23/2023 12:00:00 PM Scheduled Provider: Location:[facility] Appointment Type:Surgery FT Appointment Date:01/13/2024 10:45:00 AM Scheduled Provider:Walker Phillip MD Location:[facility] Appointment Type:BADH Follow Up Appointment Date:02/22/2024 01:20:00 PM Scheduled Provider:SRINIVAS Pereyra Tammy L. Location:[facility] Appointment Type: Open Future Scheduled Tests Laboratory* Hep B Core Ab, Tot 11/02/23 * Lxvgd-3-Kzyfxcxmsih 11/02/23 * B-Type Natriuretic Peptide 10/25/23 * [...] * Iron Level 11/02/23 * PT 11/02/23 [facility] Doc Evaluation + Plan note Future Appointments Appointment Date:12/23/2023 10:30:00 AM Scheduled Provider: Location:[facility] Appointment Type:Surgery FT Appointment Date:12/23/2023 12:00:00 PM Scheduled Provider: Location:[facility] Appointment Type:Surgery FT Appointment Date:01/13/2024 10:45:00 AM Scheduled Provider:Walker Phillip MD Location:[facility] Appointment Type:BADH Follow Up Appointment Date:02/22/2024 01:20:00 PM Scheduled Provider:Nigel SIMTH, [place] ESPINO Location:[facility] Appointment Type: Open Appointment Date:06/05/2024 01:00:00 PM Scheduled Provider:Alirio Ramirez MD [facility] [place] Appointment Type:Cardiology Follow Up (FT) Future Scheduled Tests Laboratory* Hep B Core Ab, Tot 11/02/23 * Rqojh-4-Cepumwdddec 11/02/23 * B-Type Natriuretic Peptide 10/25/23 * [...] * Iron Level 11/02/23 * PT 11/02/23 [facility] Future Appointments Appointment Date:02/22/2024 01:20:00 PM Scheduled Provider:Nigel SMITH, [employer]IPPING [employer] RECEIVING WEIGHER-[place] VILLATORO Location:[facility] Appointment Type: Open Appointment Date:06/05/2024 01:00:00 PM Scheduled Provider:Alirio aRmirez MD [facility] Appointment Type:Cardiology Follow Up (FT) Future Scheduled Tests Laboratory* Hep B Core Ab, Tot 11/02/23 * Vpjhs-5-Zbhaudyurdu 11/02/23 * B-Type Natriuretic Peptide 10/25/23 * [...] * Iron Level 11/02/23 * PT 11/02/23 [facility] Evaluation + Plan note Future Appointments Appointment Date:06/05/2024 01:00:00 PM Scheduled Provider:Alirio Ramirez MD Location:.[facility] Appointment Type:Cardiology Follow Up (FT) Appointment Date:08/29/2024 01:00:00 PM Scheduled Provider:Nigel SMITH, [place] ESPINO Location:[facility] Appointment Type: Open Appointment Date:08/31/2024 11:00:00 AM Scheduled Provider: Location:[facility] Appointment Type:Surgery FT Future Scheduled Tests Laboratory* Hep B Core Ab, Tot 11/02/23 * Xndfw-5-Ppftflwdvrd 11/02/23 * B-Type Natriuretic Peptide 10/25/23 * [...] * Iron Level 11/02/23 * PT 11/02/23 [facility] [place] Evaluation + Plan note Future Appointments Appointment Date:08/29/2024 01:00:00 PM Scheduled Provider:Nigel MSN, DARLEEN-IRVING, [place] Location:[facility] Appointment Type: Open Appointment Date:08/31/2024 11:00:00 AM Scheduled Provider: Location:[facility] Appointment Type:Surgery FT Appointment Date:12/18/2024 11:00:00 AM Scheduled Provider:Rick Hernandez PA-C [facility] [place] Appointment Type:Cardiology Follow Up (FT) Future Scheduled Tests Laboratory* Hep B Core Ab, Tot 11/02/23 * Ozufy-6-Jeiriieolti 11/02/23 * B-Type Natriuretic Peptide 10/25/23 * [...] * Iron Level 11/02/23 * PT 11/02/23 [facility] Evaluation + Plan note Future Appointments Appointment Date:07/13/2024 11:00:00 AM Scheduled Provider: Location:[facility] Appointment Type: Nurse Visit Appointment Date:07/18/2024 12:00:00 PM Scheduled Provider:Nigel SMITH, [place] ESPINO Location:[facility] Appointment Type: Open Appointment Date:08/29/2024 01:00:00 PM Scheduled Provider:SRINIVAS Pereyra Tammy L. Location:[facility] Appointment Type:FM Open Appointment Date:08/31/2024 11:00:00 AM Scheduled Provider: Location:[facility] Appointment Type:Surgery FT Appointment Date:12/18/2024 11:00:00 AM Scheduled Provider:Rick Hernandez PA-C Location[facility] [place] Appointment Type:Cardiology Follow Up (FT) Future Scheduled Tests Laboratory* Hep B Core Ab, Tot 11/02/23 * HgbA1c 07/11/24 * Qksqh-9-Efakdlcdfkv 11/02/23 * B-Type Natriuretic Peptide 07/11/24 * [...] PT 11/02/23 * Vitamin B12 Level 07/11/24 [facility] Medicine Doc Evaluation + Plan note Future Appointments Appointment Date:07/18/2024 12:00:00 PM Scheduled Provider:SRINIVAS Pereyra Tammy L. Location:[facility] Appointment Type: Open Appointment Date:08/29/2024 01:00:00 PM Scheduled Provider:SRINIVAS Pereyra Tammy L. Location:[facility] Appointment Type: Open Appointment Date:08/31/2024 11:00:00 AM Scheduled Provider: Location:[facility] Appointment Type:Surgery FT Appointment Date:12/18/2024 11:00:00 AM Scheduled Provider:Rick Hernandez PA-C [facility] [place] Appointment Type:Cardiology Follow Up (FT) Future Scheduled Tests Laboratory* Hep B Core Ab, Tot 11/02/23 * Dyczt-1-Iirkzifcoin 11/02/23 * B-Type Natriuretic Peptide 10/25/23 * [...] * Iron Level 11/02/23 * PT 11/02/23 [facility] Medicine Doc Evaluation + Plan note Future Appointments Appointment Date:07/18/2024 12:00:00 PM Scheduled Provider:SRINIVAS Pereyra Tammy L. Location:[facility] Appointment Type: Open Appointment Date:08/29/2024 01:00:00 PM Scheduled Provider:SRINIVAS Pereyra Tammy L. Location:[facility] Appointment Type: Open Appointment Date:08/31/2024 11:00:00 AM Scheduled Provider: Location:[facility] Appointment Type:Surgery FT Appointment Date:12/18/2024 11:00:00 AM Scheduled Provider:Rick Hernandez PA-C [facility] Appointment Type:Cardiology Follow Up (FT) Diagnostic Tests Pending * HgbA1c 07/13/24 Future Scheduled Tests Laboratory* Hep B Core Ab, Tot 11/02/23 * Smtfu-8-Oupioiomosb 11/02/23 * B-Type Natriuretic Peptide 10/25/23 * [...] * Iron Level 11/02/23 * PT 11/02/23 [facility] Evaluation + Plan note Future Appointments Appointment Date:08/31/2024 11:00:00 AM Scheduled Provider: Location:[facility] Appointment Type:Surgery FT Appointment Date:09/12/2024 01:00:00 PM Scheduled Provider:Nigel SMITH, [employer]PING [employer] RECEIVING WEIGHER-[place] VILLATORO Location:[facility] Appointment Type: Open Appointment Date:12/18/2024 11:00:00 AM Scheduled Provider:Rick Hernandez PA-C [facility] Appointment Type:Cardiology Follow Up (FT) Future Scheduled Tests Laboratory* Hep B Core Ab, Tot 11/02/23 * Diomp-5-Xpldsmavwhz 11/02/23 * B-Type Natriuretic Peptide 10/25/23 * [...] * Iron Level 11/02/23 * PT 11/02/23 [facility] Doc Evaluation + Plan note Future Appointments Appointment Date:09/12/2024 01:00:00 PM Scheduled Provider:Nigel MSN, [employer]PING [employer] RECEIVING WEIGHER-SHOE COVERER, [place] Location:[facility] Appointment Type: Open Appointment Date:12/18/2024 11:00:00 AM Scheduled Provider:Rick Hernandez PA-C [facility] [place] Appointment Type:Cardiology Follow Up (FT) Future Scheduled Tests Laboratory* Hep B Core Ab, Tot 11/02/23 * Mansj-2-Qffogcpajbp 11/02/23 * B-Type Natriuretic Peptide 10/25/23 * [...] * Iron Level 11/02/23 * PT 11/02/23 [facility] Evaluation + Plan note Future Appointments Appointment Date:12/18/2024 11:00:00 AM Scheduled Provider:Rick Hernandez PA-C [facility] Appointment Type:Cardiology Follow Up (FT) Appointment Date:12/19/2024 12:40:00 PM Scheduled Provider:Nigel SMITHSRINIVAS Tammy L. Location:[facility] Appointment Type: Open Future Scheduled Tests Laboratory* Hep B Core Ab, Tot 11/02/23 * Cvhej-0-Vpqzlqcpnjm 11/02/23 * B-Type Natriuretic Peptide 10/25/23 * [...] * Iron Level 11/02/23 * PT 11/02/23 [facility] Evaluation + Plan note Future Appointments Appointment Date:12/19/2024 12:40:00 PM Scheduled Provider:SRINIVAS Pereyra Tammy L. Location:[facility] Appointment Type: Open Appointment Date:01/01/2025 02:00:00 PM Scheduled Provider:Rick Hernandez PA-C [facility] Appointment Type:Cardiology Follow Up (FT) [facility] Evaluation + Plan note Future Appointments Appointment Date:01/01/2025 02:00:00 PM Scheduled Provider:Rick Hernandez PA-C [facility] Appointment Type:Cardiology Follow Up (FT) Appointment Date:01/02/2025 01:40:00 PM Scheduled Provider:SRINIVAS Pereyra Tammy L. Location:[facility] Appointment Type: Open Future Scheduled Tests Laboratory* Microalbumin Level Urine 12/19/24 * Urine Microalbumin/Creatinine Ratio 12/19/24 [facility] Evaluation + Plan note Future Appointments Appointment Date:01/02/2025 01:40:00 PM Scheduled Provider:SRINIVAS Pereyra Tammy L. Location:[facility] Appointment Type: Open Appointment Date:01/07/2025 12:30:00 PM Scheduled Provider: [facility] Type:PUL Pulmonary Function Test (FT) Future Scheduled Tests Laboratory* Microalbumin Level Urine 12/19/24 * Urine Microalbumin/Creatinine Ratio 12/19/24 * Basic Metabolic Panel 01/02/25 [facility] evaluation + Plan note Future Appointments Appointment Date:01/07/2025 12:30:00 PM Scheduled Provider: [facility] Appoint[facility] Type:PUL Pulmonary Function Test (FT) Appointment Date:01/29/2025 08:30:00 AM Scheduled Provider:Rick Hernandez PA-C [facility] Appointment Type:Cardiology Follow Up (FT) Appointment Date:02/04/2025 01:40:00 PM Scheduled Provider:SRINIVAS Pereyra Tammy L. Location:[facility] Appointment Type: Open Future Scheduled Tests Laboratory* Basic Metabolic Panel 01/02/25 [facility] Evaluation + Plan note Future Appointments Appointment Date:01/29/2025 08:30:00 AM Scheduled Provider:Rick Hernandez PA-C [facility] Appointment Type:Cardiology Follow Up (FT) Appointment Date:02/04/2025 01:40:00 PM Scheduled Provider:SRINIVAS Pereyra Tammy L. Location:[facility] Appointment Type: Open Future Scheduled Tests Laboratory* Basic Metabolic Panel 01/02/25 [facility] evaluation + Plan note Future Appointments Appointment Date:03/05/2025 01:00:00 PM Scheduled Provider:SRINIVAS Pereyra Tammy L. Location:[facility] Appointment Type: Open Appointment Date:03/12/2025 01:15:00 PM Scheduled Provider:Rick Hernandez PA-C [facility] Appointment Type:Cardiology Follow Up (FT) Future Scheduled Tests Laboratory* Basic Metabolic Panel 01/02/25 [facility] [place] Evaluation + Plan note Future Appointments Appointment Date:03/12/2025 01:15:00 PM Scheduled Provider:Rick Hernandez PA-C Location:[facility] [place] Appointment Type:Cardiology Follow Up (FT) Future Scheduled Tests Laboratory* Basic Metabolic Panel 01/02/25 [facility] [place] Evaluation + Plan note Future Appointments Appointment Date:05/21/2025 08:00:00 AM Scheduled Provider: Location:FT.[facility] Appointment Type:CV Echo Stress (FT) Appointment Date:06/04/2025 09:00:00 AM Scheduled Provider:Rick Hernandez PA-C Location:[facility] [place] Appointment Type:Cardiology Follow Up (FT) Future Scheduled Tests Laboratory* Basic Metabolic Panel 01/02/25 Radiology* EC Stress Echo Complete w/ Contrast 05/21/25 [facility] evaluation note* Diagnosis SOB (shortness of breath) Shortness of breath Obstructive sleep apnea syndrome Obstructive sleep apnea (adult) (pediatric) Moderate persistent asthma without complication Unspecified asthma Tobacco abuse Tobacco use disorder documented in this encounter [email or web address] Phone: evaluation note* Diagnosis SOB (shortness of breath) Shortness of breath Obstructive sleep apnea (adult) (pediatric) Moderate persistent asthma without complication Unspecified asthma documented in this encounter [email or web address] Phone: [email or web address] note* Diagnosis Hypertension, unspecified type Bilateral leg edema Edema documented in this encounter [facility] [employer] Work Phone: [email or web address] note* Diagnosis Onset Date Resolution Status Acute congestive heart failure acuteAcute exacerbation of CHF (congestive heart failure)acuteAcute respiratory failure with hypoxiaacuteChest painacuteShortness of breathacute [facility] Work Phone: evaluation note* Diagnosis Onset Date Resolution Status Acute congestive heart failure acuteAcute exacerbation of CHF (congestive heart failure)acuteAcute respiratory failure with hypoxiaacuteChest painacuteCOPD with acute exacerbationacute Shortness of breathacute [facility] Work Phone: Evaluation note* Diagnosis Alcohol abuse- Primary Alcohol abuse, unspecified documented in this encounter [facility] [employer] Work Phone: evaluation note* Diagnosis Left hand weakness Muscle weakness (generalized) documented in this encounter [facility] [employer] Phone: evaluation note* Diagnosis Weakness of both legs Other musculoskeletal symptoms referable to limbs documented in this encounter [facility] [employer] Phone: evaluation note* Diagnosis Fatigue, unspecified type Screening, lipid Screening for lipoid disorders documented in this encounter [facility] [employer] Phone: evaluation note* Diagnosis Right hip pain Pain in joint, pelvic region and thigh documented in this encounter [facility] [employer] note* Diagnosis Gastroesophageal reflux disease, unspecified whether esophagitis present- Primary Morbid obesity with BMI of 50.0-59.9, adult BRENDA (obstructive sleep apnea) Obstructive sleep apnea (adult) (pediatric) Type 2 diabetes mellitus without complication, without long-term current use of insulin [facility] Diagnosis Onset Date Resolution Status Admit Date Lumbar radiculopathy acuteOctober 2024 9:52am [facility] Work Phone: Hospital course Narrative No data available for this section [facility] Hospital Discharge instructions No data available for this section [facility] Additional Instructions Continue use of CPAP as before.[facility] Work Phone: Hospital Discharge instructions* Attachments The following attachments cannot be sent through Care Everywhere. * Alcohol Intoxication: Acute ([place] Islander) documented in [facility]ITAL[facility] Work Phone: progress note No data available for this section [facility] Reilen for referral (narrative) Referred by: Parish PATE [facility] Reason for referral (narrative) Referred by: Lupis SCHWARTZ MD, FAAFP Referred by: Lupis SCHWARTZ MD, FAAFP [facility] [place] reason for referral (narrative) , colonscopy, hx of polyps Referred by: Nigel SMITH, SHIPPING AND RECEIVING WEIGHER-SHOE COVERER, [place] [facility] reason for referral (narrative) , X-ray tonight, failed PT Referred by: Nigel SMITH, SHIPPING AND RECEIVING WEIGHER-SHOE COVERER, [place] [facility] Doc reason for referral (narrative)No reason for referral information availableFostoria City Hospital Work Phone: Assessments Diagnosis Syncope and [...] Procedures EKG 12 Lead Joselito Hsu MD [address] [place] [address] StatusReasonSpecialtyDiagnoses / ProceduresReferred By ContactReferred To ContactNot Required - RecondoPulmonary Function Testing Diagnoses SOB (shortness of breath) Procedures Full PFT Study With Bronchodilator HC BEFORE / AFTER BRONCHODILATOR Joselito Hsu MD [address] [place] [address] [employer] [address] [place] [address] StatusReasonSpecialtyDiagnoses / ProceduresReferred By ContactReferred To ContactPending ReviewRadiology Diagnoses Hypertrophy of uterus Right lower quadrant pain Procedures US NON OB TRANSVAGINAL Mulu Dean APRN - SHOE COVERER [address] [place] [address] StatusReasonSpecialtyDiagnoses / ProceduresReferred By ContactReferred To ContactOpenRadiology Diagnoses Hypertrophy of uterus Right lower quadrant pain Procedures US PELVIS COMPLETE Mulu Dean SHIPPING AND RECEIVING WEIGHER - SHOE COVERER [address] [place] [address] StatusReasonSpecialtyDiagnoses / ProceduresReferred By ContactReferred To ContactOpenRadiology Diagnoses RLQ abdominal pain Procedures CT ABDOMEN PELVIS W IV CONTRAST Additional Contrast? Oral Mulu Dean APRN - CNP [address] [place] [address] SpecialtyDiagnoses / ProceduresReferred By ContactReferred To Contact Diagnoses SOB (shortness of breath) Obstructive sleep apnea syndrome Moderate persistent asthma without complication Tobacco abuse Procedures Full PFT Study With Bronchodilator Mulu Dean APRN - CNP [address] [place] [address] Referral IDStatusNinaasonEden DateExpiration DateVisits RequestedVisits [id number] [id number] / ProceduresReferred By ContactReferred To ContactCardiology Diagnoses Hypertension, unspecified type Bilateral leg edema I10 (ICD-10-CM) - Hypertension, unspecified type Procedures Echocardiogram complete VT ECHO TTHRC R-T 2D W/WOM-MODE COMPL SPEC&COLR D 08365 - VT ECHO TTHRC R-T 2D W/WOM-MODE COMPL SPEC&COLR D Lupis Schwartz MD [address] [place] [address] Referral IDStatus[facility]St[facility] DateExpiration DateVisits RequestedVisits [id number]/ Discharge Instructions * Instructions* Echo Paiz RN [...] one drug, even if it is an rrlf-urv-hsqehta medication, herb, or dietary supplement, be sure [...] / AFTER BRONCHODILATOR Joselito Hsu MD [address] [place] [address] [facility] [address] [place] [address] StatusReasonSpecialtyDiagnoses / ProceduresReferred By ContactReferred To ContactPending ReviewRadiology Diagnoses Hypertrophy of uterus Right lower quadrant pain Procedures HC US PELVIS COMPLETE Mulu Dean APRN - SHOE COVERER [address] [place] [address] [facility] [address] [place] [address] StatusReasonSpecialtyDiagnoses / ProceduresReferred By ContactReferred To Contact Diagnoses Right lower quadrant abdominal pain Weight gain RIGHT LOWER ABDOMINAL PAIN, WEIGHT GAIN Procedures VT COLONOSCOPY FLX DX W/COLLJ SPEC WHEN PFRMD VT ESOPHAGOGASTRODUODENOSCOPY TRANSORAL DIAGNOSTIC COLONOSCOPY EGD ESOPHAGOGASTRODUODENOSCOPY Glenn Malik MD [address] [facility] [address] [place] [address] [facility] StatusReasonSpecialtyDiagnoses / ProceduresReferred By ContactReferred To ContactClosedRadiology Diagnoses Right lower quadrant pain Procedures CT ABDOMEN PELVIS W CONTRAST Mulu Dean APRN - SHOE COVERER [address] [place] [address] Scan [address] [place] [id number] SpecialtyDiagnoses / ProceduresReferred By ContactReferred To Contact Diagnoses SOB (shortness of breath) Obstructive sleep apnea syndrome Moderate persistent asthma without complication Tobacco abuse Procedures Full PFT Study With Bronchodilator Mulu Dean, SHIPPING AND RECEIVING WEIGHER - SHOE COVERER [address] [place] [address] Referral IDStatusReasonStart DateExpiration DateVisits RequestedVisits [id number] [id number] ClassSpecialtyDiagnoses / ProceduresReferred By ContactReferred To Contact Cardiology Diagnoses Hypertension, unspecified type Bilateral leg edema I10 (ICD-10-CM) - Hypertension, unspecified type Procedures Echocardiogram complete VT ECHO TTHRC R-T 2D W/WOM-MODE COMPL SPEC&COLR D 77883 - VT ECHO TTHRC R-T 2D W/WOM-MODE COMPL SPEC&COLR D Lupis Schwartz MD [address] [place] [address] Referral IDStatusReasonStart DateExpiration DateVisits RequestedVisits [id number] PainChest pain, SOB x1 day patient states this started after had 2 bottles of rum today SpecialtyDiagnoses / ProceduresReferred By ContactReferred To ContactRadiology Diagnoses Fatigue, unspecified type Screening, lipid Procedures VL DUP LOWER EXTREMITY VENOUS BILATERAL US DUP LOWER EXTREMITIES BILATERAL VENOUS Carmen Haley, DO [address] [place] [address] Referral IDStatusReasonEden DateExpiration DateVisits RequestedVisits [id number] Maureen is interested in bariatric surgery for weight loss and improvement of comorbid conditions.SpecialtyDiagnoses / ProceduresReferred By ContactReferred To Contact Multispecialty Diagnoses Morbid obesity with BMI of 50.0-59.9, adult BRENDA (obstructive sleep apnea) Type 2 diabetes mellitus with morbid obesity Benign hypertension [facility] [address] [place] [address] Phone: tel: Coco Dean MD [address] [place] [address] Phone: tel: Referral IDStatusReasonEden DateExpiration DateVisits RequestedVisits [id number] Review/ Care Teams (unrecognized sec tion and content) Team MemberRelationshipSpecialtyStart DateEnd Date Mulu Dean APRN - SHOE COVERER [address] [place] [address] PCP - [facility] Medicine02/17/17Team MemberRelationshipSpecialtyStart DateEnd Date Mulu Dean APRN - SHOE COVERER [address] [place] [address] [facility]/17/17Team MemberRelationshipSpecialtyStart DateEnd Date Mulu Dean APRN - SHOE COVERER [address] [place] [address] [facility]/17/17Team MemberRelationshipSpecialtyStart DateEnd Date Mulu Dean, SHIPPING AND RECEIVING WEIGHER - [facility] [address] [place] [address] PCP - [facility] Medicine02/17/17Team MemberRelationshipSpecialtyStart DateEnd Date Mulu Dean, SHIPPING AND RECEIVING WEIGHER - [facility] [address] [place] [address] PCP - [facility]02/17/17Team MemberRelationshipSpecialtyStart DateEnd Date Mulu Dean, SHIPPING AND RECEIVING WEIGHER - SHOE COVERER [address] [place] [address] PCP - [facility]02/17/17Team MemberRelationshipSpecialtyStart DateEnd Date [facility], SHIPPING AND RECEIVING WEIGHER - SHOE COVERER [address] [place] [address] PCP - [facility]02/17/17 Team Status: Active Member Role [...] MDAdmit ProviderActiveAnoop Daniel , MDAttending Provider ActiveDEZ [facility] Care ProviderActiveTeam MemberRelationship SpecialtyStart DateEnd Date Mulu Dean, SHIPPING AND RECEIVING WEIGHER - SHOE COVERER [address] [place] [address] PCP - [facility] Medicine02/17/17Team MemberRelationshipSpecialtyStart DateEnd Date Mulu Dean SHIPPING AND RECEIVING WEIGHER - SHOE COVERER [address] [place] [id number] PCP - GeneralFamily Medicine02/17/17Team MemberRelationshipSpecialtyStart DateEnd Date Mulu Dean SHIPPING AND RECEIVING WEIGHER - SHOE COVERER [address] [place] [phone] [facility] - [facility]02/17/17Team MemberRelationshipSpecialtyStart DateEnd Date Mulu Dean APRN - SHOE COVERER [facility] - [facility]/17/17Te MemberRelationshipSpecialtyStart DateEnd Date Paris Rust APRN - SHOE COVERER [address] [place] [address] PCP - GeneralNurse Practitioner Dercwq23/27/23Team MemberRelationshipSpecialty Start DateEnd Date Paris Rust APRN - SHOE COVERER [address] [place] [address] PCP - GeneralNurse Practitioner Ksozoj72/27/23Team MemberRelationshipSpecialty Start DateEnd Date Paris Rust APRN - SHOE COVERER [address] [place], [place] [phone] PCP - GeneralNurse Practitioner Stlbbm29/27/23Team MemberRelationshipSpecialty Start DateEnd Date Paris Rust SHOE COVERER [address] [place] [phone] PCP - GeneralNurse Practitioner - Family11/07/24 Team Status: Active Member Role Status Dates Paris L Nigel , ACCELERATOR SYSTEMS DIRECTOR-C Primary Care Provider Active Team Status: Inactive Member Role Status Dates Glenn Perkins DO Attending Provider Active S tart: April 03, 2025 End: April 03, 2025Paris Rust NP-[facility] Care ProviderActiveStart: April 03, 2025 End: April 03, 2025 Goals (unrecognized section and content) Goals may be documented in a n alternate section INFORMATION SOURCE (unrecogn ized section and content) DATE CREATED AUTHOR 09/18/2022 [facility] DATE CREATED AUTHOR AUTHOR'S ORGANIZ ATION 02/10/2023 [facility] DATE CREATED AUTHOR AUTHOR'S ORGANIZ ATION 09/01/2023 [facility] DATE CREATED AUTHOR AUTHOR'S ORGANIZ ATION 12/23/2023 [facility] DATE CREATED AUTHOR AUTHOR'S ORGANIZ ATION 07/18/2024 [facility] DATE CREATED AUTHOR AUTHOR'S ORGANIZ ATION 09/06/2024 [facility] DATE CREATED AUTHOR AUTHOR'S ORGANIZ ATION 09/15/2024 [facility] DATE CREATED AUTHOR AUTHOR'S ORGANIZ ATION 12/21/2024 [facility] DATE CREATED AUTHOR AUTHOR'S ORGANIZ ATION 12/23/2024 [facility] DATE CREATED AUTHOR AUTHOR'S ORGANIZ ATION 12/27/2024 [facility] DATE CREATED AUTHOR AUTHOR'S ORGANIZ ATION 12/28/2024 [facility] DATE CREATED AUTHOR AUTHOR'S ORGANIZ ATION 12/29/2024 [facility] DATE CREATED AUTHOR AUTHOR'S ORGANIZ ATION 12/30/2024 [facility] DATE CREATED AUTHOR AUTHOR'S ORGANIZ ATION 01/03/2025 [facility] DATE CREATED AUTHOR AUTHOR'S ORGANIZ ATION 01/04/2025 [facility] DATE CREATED AUTHOR AUTHOR'S ORGANIZ ATION 01/06/2025 [facility] DATE CREATED AUTHOR AUTHOR'S ORGANIZ ATION 01/13/2025 [facility] DATE CREATED AUTHOR AUTHOR'S ORGANIZ ATION 01/25/2025 [facility] DATE CREATED AUTHOR AUTHOR'S ORGANIZ ATION 01/31/2025 [facility] DATE CREATED AUTHOR AUTHOR'S ORGANIZ ATION 02/06/2025 [facility] DATE CREATED AUTHOR AUTHOR'S ORGANIZ ATION 04/10/2025 [facility] DATE CREATED AUTHOR AUTHOR'S ORGANIZ ATION 04/27/2025 [facility] Scheduled Active and Recently Administ ered Medications [...] BE BASED ON THE PRIMARY CLINICAL RECORDS. [employer] [facility]. provides no warranty or guarantee of the accuracy or completeness of information in this document.
[2025-05-13 08:59] VITALS: PULSE 74; O2SAT 97
[2025-05-13 09:00] VITALS: BP 154/79; PULSE 79; O2SAT 96
[2025-05-13] MEDS: LIDOCAINE HCL 2% 400 MG/20 ML MDV INJ (09:01)
[2025-05-13] MEDS: METHYLPREDNISOLONE ACETATE 40 MG/ML VIAL INJ (09:02)
[2025-05-13] MEDS: IOHEXOL 240 MG/ML - 10 ML VIAL INJ (09:02)
[2025-05-13] MEDS: BUPIVACAINE HCL 0.25% PF 25 MG/10 ML VIAL 2 ML INJ (09:02)
[2025-05-13 09:03] VITALS: BP 147/84
--- NOTE | 2025-05-13 09:07 | W.PM.PROCNOT ---
Date of procedure: 05/13/25 Pre-op diagnosis: Pain due to right sacroiliitis Post-op diagnosis: same as pre-op Procedure: Procedure: Right sacroiliac joint injection Medications: Bupivacaine 0.25% 3cc, depomedrol 40mg After informed consent was obtained, the patient was brought to the medical procedure unit and placed in the prone position, when a timeout was completed verifying correct patient, procedure, site, positioning, implant, and/or special equipment.? The skin overlying the area was prepped and draped in standard sterile fashion using alcohol.? A 25-gauge needle was inserted towards the right sacroiliac joint under direct fluoroscopic imaging.? Needle tip was advanced until the joint was encountered.? We instilled a total of 2 mL of solution.? Postoperatively needles were removed.? The patient tolerated the procedure well without complication.? The patient reported reduction in pain symptoms postoperatively. Anesthesia: Local Surgeon: Calvin Palmer Pathology: none sent Condition: stable Disposition: no change
== END 2025-05-13 09:06 | disposition home or self-care (01) ==
PROVIDERS: Visit Provider Anesthesiology
DX: M46.1 Sacroiliitis, not elsewhere classified (principal); E11.8 Type 2 diabetes mellitus with unspecified complications; Z79.85 Long-term (current) use of injectable non-insulin antidiabetic drugs; Z79.84 Long term (current) use of oral hypoglycemic drugs
CPT/HCPCS: 27096; 36415; 82948; J0665; J1010; Q9966

== ENCOUNTER 2025-05-22 10:29 | Outpatient (OUT) | payer OTHER, SELFPAY ==
--- OUTSIDE RECORDS SUMMARY | 2025-05-15 23:59 | XMS_ITS | Continuity of Care Document ---
Author Organization [facility] Address [address] [place] [address] Care Team Providers Care Medical Office Scheduler Name Role Phone Paris Manning Primary Care Physician Encounter FT_AMBFIN [id number] Date(s): 05/15/25 - 05/15/25 [facility] [address] [place] [address]- Encounter Diagnosis Type 2 diabetes mellitus with morbid obesity(Discharge Diagnosis) - 05/14/25 Alcohol abuse, in remission(Discharge Diagnosis) - 05/14/25 Marijuana user(Discharge Diagnosis) - 05/14/25 Encounter for weight management(Discharge Diagnosis) - 05/14/25 Heart failure with preserved ejection fraction(Discharge Diagnosis) - 05/14/25 Obstructive sleep apnea(Discharge Diagnosis) - 05/14/25 Morbid obesity with BMI of 50.0-59.9, adult(Discharge Diagnosis) - 05/14/25 BMI 50.0-59.9, adult(Discharge Diagnosis) - 05/14/25 Discharge Disposition: Home (Routine DC) Attending Physician: Nigel MSN, MEDICAL WRITER-WATER RESOURCE SPECIALISTParis Encounter Type: Clinic Allergies, Adverse Reactions, Alerts SubstanceCriticalitySeverityReactionReaction SeverityStatuslisinoprilHigh criticalitySeverePersistent cough Tongue swelling ActiveamLODIPineHigh criticalitySevereLeg EdemaActivemetFORMINDiarrheaActive Treatment Plan Future Appointments Appointment Date:05/21/2025 08:00:00 AM Scheduled Provider: [facility] Appointment Type:CV Echo Stress (FT) Appointment Date:06/04/2025 09:00:00 AM Scheduled Provider:Rick Hernandez PA-C [facility] [place] [facility] Type:Cardiology Follow Up () Appointment Date:06/12/2025 12:40:00 PM Scheduled Provider:Nigel MSN, MEDICAL WRITER-Paris VILLATORO Location:[facility] Appointment Type: Open [facility] Scheduled Tests Laboratory* Basic Metabolic Panel 01/02/25 Radiology* EC Stress Echo Complete w/ Contrast 05/21/25 Immunizations Given and Recorded VaccineDateStatusRefusal Reasoninfluenza virus vaccine, inactivated07/11/24Given influenza virus vaccine, inactivated03/18/23Giveninfluenza virus vaccine, ufsfxrjvzcs55/8/22Recordedinfluenza virus vaccine, nvpuvbhxpwg12/2/21Recorded influenza virus vaccine, vvsxyaqsmet26/8/Recordedinfluenza virus vaccine, jkfthciisdi13//Recordedinfluenza virus vaccine, hjtewrfsofx60/22/Recorded influenza virus vaccine, inactivated//25BgxtxqnxRZVD-UiO-6 (COVID-19) mRNAMUL.ORD![id number]/02/2292RcskaxtdOXAKEoS8 mRNA(brqmcfeya-kyxl-bvqbgh) vac6/ ZrxghnibFNDE-SqO-7 (COVID-19) mRNA BNT-162b2 vax12/10/25DzawbsgoQQUR-OeJ-5 (COVID-19) mRNA BNT-162b2 vax4/5/63GbxvyrjwQHXX-SsV-9 (COVID-19) mRNA BNT-162b2 vax3/16/Recordedzoster vaccine live1/6/Recordedzoster vaccine live/02/20 Recordedpneumococcal 23-valent tayjjpu15/8/20Recordedpneumococcal 23-valent vaccine12/16/17Recordedtetanus dfjicg39/8/20Recordeddiphtheria/pertussis, acel/tetanus adult10/27/14Recorded Medications Abilify 5 mg Tab 5 mg = 1 tab(s), Oral, Daily, # 90 tab(s), Refills(s) 4, Pharmacy: [facility] #[id number], 167, cm, 02/22/24 13:09:00 EDT, Height/Length Dosing, 137, kg, 02/22/24 13:09:00 EDT, Weight Dosing Start Date: 05/07/24 Status: Ordered Medication Dispense Status: Completed Quantity: 90.0 Unit: tab(s) Total Allowed Fills: 5 Fills Dispensed: 0 Advair HFA 115 mcg-21 mcg/inh inhalation aerosol with adapter 2 puff(s), Inhalation, BID, 8 gm, Refill(s) 1, [facility], 168, cm, 01/29/25 8:19:00 EDT, Height/Length Dosing, 159, kg, 01/24/25 8:55:00 EDT, Weight Dosing Start Date: 01/29/25 Status: Ordered Medication Dispense Status: Completed Quantity: 8.0 Unit: g Total Allowed Fills: 2 Fills Dispensed: 0 Indications: Moderate persistent asthma, uncomplicated; Albuterol (Eqv-Ventolin HFA) 90 mcg/inh inhalation aerosol 2 puff(s), Inhalation, q6hr Shortness of breath or wheezing, 6.7 gm, Refill(s) 1, [facility], 168, cm, 04/09/25 11:43:00 EDT, Height/Length Dosing, 160.8, kg, 04/09/25 11:43:00 EDT, Weight Dosing Start Date: 04/09/25 Status: Ordered Medication Dispense Status: Completed Quantity: 6.7 Unit: g Total Allowed Fills: 2 Fills Dispensed: 0 Indications: Chronic obstructive pulmonary disease with (acute) exacerbation; albuterol 0.083% Inh [place] 3 mL 2.5 mg, 3 mL, NEB, q6hr Shortness of breath or wheezing, 100 EA, Refill(s) 1, [facility], 168, cm, 04/09/25 11:43:00 EDT, Height/Length Dosing, 160.8, kg, 04/09/25 11:43:00 EDT, Weight Dosing Start Date: 04/09/25 Status: Ordered Medication Dispense Status: Completed Quantity: 100.0 Unit: EA Total Allowed Fills: 2 Fills Dispensed: 0 Indications: Moderate persistent asthma, uncomplicated; Alcohol wipes Alcohol wipes, See Instructions, 100 EA, 3, Use to check BS daily dx E11.9, [id number], Supply, 163, cm, 12/30/21 11:09:00 EDT, Height/Length Dosing, 154, kg, 12/30/21 11:09:00 EDT, Weight Dosing Start Date: 04/13/22 Status: Ordered Medication Dispense Status: Completed Quantity: 100.0 Unit: EA Total Allowed Fills: 4 Fills Dispensed: 0 Bariatric transfer bench shower chair w/back rest Bariatric transfer bench shower chair w/back rest, See Instructions, 1 EA, 0, to be used in the shower, Supply Start Date: 01/28/25 Status: Ordered Medication Dispense Status: Completed Quantity: 1.0 Unit: EA Total Allowed Fills: 1 Fills Dispensed: 0 Indications: Body mass index (BMI) 50.0-59.9, adult; Right heart failure, unspecified; Localized edema; buPROPion 150 mg/24 hours XL Tab 150 mg = 1 tab(s), Oral, q24hr, # 30 tab(s), Refills(s) 0, Pharmacy: [facility], 168, cm, 02/04/25 13:39:00 EDT, Height/Length Dosing, 155.1, kg, 02/04/25 13:39:00 EDT, Weight Dosing Start Date: 02/04/25 Status: Ordered Medication Dispense Status: Completed Quantity: 30.0 Unit: tab(s) Total Allowed Fills: 1 Fills Dispensed: 0 Crestor 40 mg Tab 40 mg = 1 tab(s), Oral, Daily, # 90 tab(s), Refills(s) 3, Pharmacy: [facility], 168, cm, 04/09/25 11:43:00 EDT, Height/Length Dosing, 160.8, kg, 04/09/25 11:43:00 EDT, Weight Dosing Start Date: 04/09/25 Status: Ordered Medication Dispense Status: Completed Quantity: 90.0 Unit: tab(s) Total Allowed Fills: 4 Fills Dispensed: 0 Indications: Mixed hyperlipidemia; Flonase 0.05 mg/inh [place] 2 spray(s), Nasal, Daily, 16 gram, Refill(s) 0, each nostril, [facility], 168, cm, 04/09/25 11:43:00 EDT, Height/Length Dosing, 160.8, kg, 04/09/25 11:43:00 EDT, Weight Dosing Start Date: 04/09/25 Status: Ordered Medication Dispense Status: Completed Quantity: 16.0 Unit: g Total Allowed Fills: 1 Fills Dispensed: 0 FLUoxetine 20 mg Cap 40 mg = 2 cap(s), Oral, Daily, # 180 cap(s), Refills(s) 4, Pharmacy: [facility], 168, cm, 01/29/25 8:19:00 EDT, Height/Length Dosing, 159, kg, 01/24/25 8:55:00 EDT, Weight Dosing Start Date: 01/29/25 Status: Ordered Medication Dispense Status: Completed Quantity: 180.0 Unit: cap(s) Total Allowed Fills: 5 Fills Dispensed: 0 furosemide 40 mg Tab 40 mg = 1 tab(s), Oral, BID, # 60 tab(s), Refills(s) 2, Pharmacy: [facility], 168, cm, 01/01/25 13:49:00 EDT, Height/Length Dosing, 161.7, kg, 01/01/25 13:49:00 EDT, Weight Dosing Start Date: 01/01/25 Status: Ordered Medication Dispense Status: Completed Quantity: 60.0 Unit: tab(s) Total Allowed Fills: 3 Fills Dispensed: 0 Indications: Unspecified diastolic (congestive) heart failure; Localized edema; gabapentin 300 mg Cap 300 mg = 1 cap(s), TID, Refills(s) 0 Start Date: 02/22/24 Status: Ordered Medication Dispense Status: Completed Total Allowed Fills: 1 Fills Dispensed: 0 glipiZIDE 2.5 mg ER Tab 2.5 mg = 1 tab(s), Oral, Daily, # 90 tab(s), Refills(s) 3, Pharmacy: [facility], 168, cm, 04/09/25 11:43:00 EDT, Height/Length Dosing, 160.8, kg, 04/09/25 11:43:00 EDT, Weight Dosing Start Date: 04/09/25 Status: Ordered Medication Dispense Status: Completed Quantity: 90.0 Unit: tab(s) Total Allowed Fills: 4 Fills Dispensed: 0 Glucometer Glucometer, See Instructions, 1 EA, 0, Glucometer to test BS TID and PRN dx E11.9, [facility], Supply, 170, cm, 05/27/21 8:31:00 EST, Height/Length Dosing, 157.8, kg, 05/27/21 8:31:00 EST, Weight Dosing Start Date: 06/03/21 Status: Ordered Medication Dispense Status: Completed Quantity: 1.0 Unit: EA Total Allowed Fills: 1 Fills Dispensed: 0 Jardiance 10 mg oral tablet 10 mg, Oral, Daily, # 90 tab(s), Refills(s) 4, Pharmacy: [facility], 168, cm, 01/29/25 8:19:00 EDT, Height/Length Dosing, 159, kg, 01/24/25 8:55:00 EDT, Weight Dosing Start Date: 01/29/25 Status: Ordered Medication Dispense Status: Completed Quantity: 90.0 Unit: tab(s) Total Allowed Fills: 5 Fills Dispensed: 0 Lancets Lancets, See Instructions, 100 EA, 3, Use to check BS daily dx E11.9, [facility] #[id number], Supply, 163,cm, 12/30/21 11:09:00 EDT, Height/Length Dosing, 154, kg, 12/30/21 11:09:00 EDT, Weight Dosing Start Date: 04/13/22 Status: Ordered Medication Dispense Status: Completed Quantity: 100.0 Unit: EA Total Allowed Fills: 4 Fills Dispensed: 0 Nebulizer Machine Nebulizer Machine, See Instructions, 1 EA, 0, Nebulizer Machine, [facility] #[id number], Supply, 168, cm, 10/11/23 14:32:00 EDT, Height/Length Dosing, 160.2, kg, 10/11/23 14:32:00 EDT, Weight Dosing Start Date: 10/11/23 Status: Ordered Medication Dispense Status: Completed Quantity: 1.0 Unit: EA Total Allowed Fills: 1 Fills Dispensed: 0 Indications: Moderate persistent asthma, uncomplicated; Nebulizer Tubing and Mouthpiece Kit Nebulizer Tubing and Mouthpiece Kit, See Instructions, 1 kit(s), 0, Nebulizer Tubing and MouthpieceKit, [facility] #[id number], Supply, 168, cm, 10/11/23 14:32:00 EDT, Height/Length Dosing, 160.2, kg, 10/11/23 14:32:00 EDT, Weight Dosing Start Date: 10/11/23 Status: Ordered Medication Dispense Status: Completed Quantity: 1.0 Unit: kit(s) Total Allowed Fills: 1 Fills Dispensed: 0 Indications: Moderate persistent asthma, uncomplicated; Pantoprazole [address] Tab 40 mg = 1 tab(s), Oral, Daily, # 90 tab(s), Refills(s) 4, Pharmacy: [facility], 168, cm, 01/02/25 13:43:00 EDT, Height/Length Dosing, 159, kg, 01/02/25 13:43:00 EDT, Weight Dosing Start Date: 01/15/25 Status: Ordered Medication Dispense Status: Completed Quantity: 90.0 Unit: tab(s) Total Allowed Fills: 5 Fills Dispensed: 0 potassium chloride 20 mEq ER Tab 20 mEq = 1 tab(s), Oral, Daily, Take with Lasix, # 90 tab(s), Refills(s) 4, Pharmacy: [facility], 168, cm, 01/29/25 8:19:00 EDT, Height/Length Dosing, 159, kg, 01/24/25 8:55:00 EDT, Weight Dosing Start Date: 01/29/25 Status: Ordered Medication Dispense Status: Completed Quantity: 90.0 Unit: tab(s) Total Allowed Fills: 5 Fills Dispensed: 0 Indications: Localized edema; Singulair 10 mg Tab 10 mg = 1 tab(s), Oral, qPM, # 90 tab(s), Refills(s) 2, Pharmacy: [facility], 168, cm, 04/09/25 11:43:00 EDT, Height/Length Dosing, 160.8, kg, 04/09/25 11:43:00 EDT, Weight Dosing Start Date: 04/09/25 Status: Ordered Medication Dispense Status: Completed Quantity: 90.0 Unit: tab(s) Total Allowed Fills: 3 Fills Dispensed: 0 spironolactone 25 mg Tab 25 mg = 1 tab(s), Oral, Daily, # 90 tab(s), Refills(s) 4, Pharmacy: [facility], 168, cm, 01/02/25 13:43:00 EDT, Height/Length Dosing, 159, kg, 01/02/25 13:43:00 EDT, Weight Dosing Start Date: 01/15/25 Status: Ordered Medication Dispense Status: Completed Quantity: 90.0 Unit: tab(s) Total Allowed Fills: 5 Fills Dispensed: 0 Indications: Essential (primary) hypertension; Test Strips Test Strips, See Instructions, 100 EA, 3, Use to test BS daily, [id number], Supply, 167.5, cm,10/18/22 13:30:00 EDT, Height/Length Dosing, 147, kg, 10/18/22 13:30:00 EDT, Weight Dosing Start Date: 10/19/22 Status: Ordered Medication Dispense Status: Completed Quantity: 100.0 Unit: EA Total Allowed Fills: 4 Fills Dispensed: 0 Indications: Type 2 diabetes mellitus with other specified complication; Trulicity Pen 3 mg/0.5 mL subcutaneous solution See Instructions, inject 3 (THREE) mg under the skin EVERY week, # 2 mL, Refills(s) 3, Pharmacy: [facility], 168, cm, 03/12/25 13:02:00 EDT, Height/Length Dosing, 154.2, kg, 03/12/25 13:02:00 EDT, Weight Dosing Start Date: 04/01/25 Status: Ordered Medication Dispense Status: Completed Quantity: 2.0 Unit: mL Total Allowed Fills: 1 Fills Dispensed: 0 Problem List ConditionConfirmationCourseEffective DatesStatusHealth StatusInformantCOPD exacerbationConfirmedResolvedBenign hypertensionConfirmedActiveBMI 50.0-59.9, adultConfirmedActiveCandidiasis of skinConfirmedActiveChronic insomniaConfirmed ActiveCigarette smokerConfirmedActiveLow vitamin D levelConfirmedActiveShortness of breath on exertionConfirmedActiveBilateral leg edemaConfirmedActiveElevated liver transaminase levelConfirmedActiveAlcohol problem drinkingConfirmedActive GERD (gastroesophageal reflux disease)ConfirmedActiveGA (granuloma annulare) ConfirmedActiveHeart failure with preserved ejection fractionConfirmedActive Right hip painConfirmedActiveBilateral hip painConfirmedActiveHistory of alcohol abuseConfirmedActiveHistory of colon polypsConfirmedActiveHypokalemiaConfirmed ActiveHepatomegalyConfirmedActiveElevated LFTsConfirmedActiveMarijuana user ConfirmedActiveMixed hyperlipidemiaConfirmedActiveSkin tags, multiple acquired ConfirmedActiveNeurogenic claudicationConfirmedActiveAlcohol abuse, in remission ConfirmedActiveObstructive sleep apneaConfirmedActiveEncounter for weight managementConfirmedActiveRestless leg syndromeConfirmedActiveSciaticaConfirmed ActiveSeborrheic keratosesConfirmedActiveSevere major depressionConfirmedActive SmokerConfirmedActiveFatty liverConfirmedActiveTubular adenoma of colonConfirmed ResolvedNon-insulin dependent type 2 diabetes mellitusConfirmedActiveType 2 diabetes mellitus with morbid obesityConfirmedActiveUterine fibroidConfirmed ActiveLeft hand weaknessConfirmedActive Procedures ProcedureDateRelated DiagnosisBody SiteStatusColonoscopic polypectomy12/23/23 CompletedColonoscopy03/17/20CompletedEye/lens implant bilatCompletedKnee replacementCompletedL foot bunion/reconstructionCompleted Social History Social History TypeResponseSmoking Pcehrf99 or more cigarettes (1/2 pack or more)/day in last 30 days;Never; Type: Cigarettes; Previous treatment: None; Ready to change: Yes; Concerns about tobacco use in household: No; Smoking Cessation Yes; Tobacco use per day: 1; Number of years: 43; Total pack years: 1 5; Started at age: 18.0; entered on: 11/12/25Birth SexFemaleSex RepresentationFemale (finding) Implantable Device List ProcedureProviderProcedure DateDevice TypeSiteUnknownUnknown12/23/23Non BiologicalUnknownDevice IdentifierSerial NumberLot or Batch NumberManufacturing DateExpiration DateDistinct Identification CodeMRI SafetyImplantable Status Assigning AuthorityUnknownUnknownUnknownUnknownUnknownUnknownUnknownActive Unknown Hospital Discharge Instructions Patient Education 05/14/2025 09:28:43 Sleep Apnea Sleep Apnea Sleep apnea is [...] your airway while you sleep, such as: ??? An oral appliance. This is a custom-made mouthpiece that shifts your lower jaw forward. ??? A continuous positive airway pressure (CPAP) device. This device blows air through a mask when you breathe out (exhale). ??? A nasal expiratory positive airway pressure (EPAP) device. This device has valves that you put into each nostril. ??? A bi-level positive airway pressure (BIPAP) device. [...] health care provider. General instructions ??? Take rvbk-sgv-szbxwkw and prescription medicines only as told by [...] help right away if: ??? You develop: ??? Chest pain. ??? Shortness of breath. ??? Discomfort in your back, arms, or stomach. ??? You have: ??? Trouble speaking. ??? Weakness on one side of your body. ??? Drooping in your face. These symptoms may represent a serious problem that is an emergency. Do not wait to see if the symptoms will go away. Get medical help right away. Call your local emergency services (911 in the [place] Do not drive yourself to the hospital. Summary ??? Sleep apnea is a condition in which breathing pauses or becomes shallow during sleep. ??? The most common cause is a collapsed or blocked airway. ??? The goal of treatment is to restore normal breathing and to ease symptoms during sleep. This information is not intended to replace advice given to you by your health care provider. Make sure you discuss any questions you have with your health care provider. Document Revised: 01/27/2022 Document Reviewed: 05/29/2021 [employer] Patient Education ?? 2023 [employer] 05/14/2025 09:28:41 Type 2 Diabetes Mellitus, Self-Care, Adult Type [...] to maintain the following blood glucose levels: ??? Before meals: 80???130 mg/dL (4.4???7.2 mmol/L). ??? After meals: below 180 mg/dL (10 mmol/L). ??? A1C level: less than 7%. How to [...] treat it right away. Always have a 01-tvasnxdsa-ruotsb carbohydrate snack with you to treat low [...] how to adjust your dosage. ??? Take ipmt-vsk-wojkfjk and prescription medicines only as told by [...] your health care provider. This may include: ??? Stretching and doing strength exercises, such as yoga or weight lifting, two or more times a week. ??? Doing 150 minutes or more of moderate-intensity or vigorous-intensity exercise each week. This could be brisk walking, biking, or water aerobics. ??? Spread out your activity over 3 or more days of the week. ??? Do not go more than 2 days in a row without doing some kind of physical activity. ??? When you start a new exercise or activity, work with your health care provider to adjust your insulin, medicines, or food intake as needed. Lifestyle ??? Do not use any products that contain nicotine or tobacco. These products include cigarettes, chewing tobacco, and vaping devices, such as e-cigarettes. If you need help quitting, ask your health care provider. ??? If you drink alcohol and your health care provider says that it is safe for you: ??? Limit how much you have to: ??? 0???1 drink a day for women who are not . ??? 0???2 drinks a day for men. ??? Know how much alcohol is in your drink. In the [place] one drink equals one 12 oz bottle of beer (355 mL), one 5 oz glass of wine (148 mL), or one 1?? oz glass of hard liquor (44 mL). ??? Learn to manage stress. If you need help with this, ask your health care provider. Take care of your body ??? Keep your immunizations up to date. In addition to getting vaccinations as told by your health care provider, it is recommended that you get vaccinated against the following illnesses: ??? The flu (influenza). Get a flu shot every year. ??? Pneumonia. ??? Hepatitis B. ??? Schedule an eye exam soon after your diagnosis, and then one time every year after that. ??? Check your skin and feet every day for cuts, bruises, redness, blisters, or sores. Schedule a foot exam with your health care provider once every year. ??? [place] your teeth and gums two times a day, and floss one or more times a day. Visit your dentist one or more times every 6 months. ??? Maintain a healthy weight. General instructions ??? Share your diabetes management plan with people in your workplace, school, and household. ??? Carry a medical alert card or wear medical alert jewelry. ??? Keep all follow-up visits. This is important. Questions to ask your health care provider ??? Should I meet with a certified diabetes care and preschool special education teacher? Where can I find a support group for people with diabetes? Where to find more information For help and guidance and for more information about diabetes, please visit: ??? [place] [employer] (ADA): www.diabetes.org ??? [place] [employer] Diabetes Care and Education Specialists (ADCES): www.diabeteseducator.org ??? International Diabetes Federation (IDF): www.idf.org Summary ??? Caring for yourself after you have been diagnosed with type 2 diabetes (type 2 diabetes mellitus) means keeping your blood sugar (glucose) under control with a balance of nutrition, exercise, lifestyle changes, and medicine. ??? Check your blood glucose every day, as often as told by your health care provider. ??? Having diabetes can put you at risk for other long-term (chronic) conditions, such as heart disease and kidney disease. Your health care provider may prescribe medicines to help prevent complications from diabetes. ??? Share your diabetes management plan with people in your workplace, school, and household. ??? Keep all follow-up visits. This is important. This information is not intended to replace advice given to you by your health care provider. Make sure you discuss any questions you have with your health care provider. Document Revised: 11/18/2021 Document Reviewed: 11/18/2021 [employer] Patient Education ?? 2023 [employer]. 05/14/2025 09:28:39 Heart Failure, Self-Care Heart Failure, Self-Care Heart [...] when you have heart failure Medicines Take zxqq-nxb-pnmgfka and prescription medicines only as told by [...] eating plan that is right for you. ??? Limit salt (sodium) if told by your health care provider. Sodium restriction may reduce symptoms of heart failure. Ask a dietitian to recommend heart-healthy seasonings. ??? Use healthy cooking methods instead of frying. Healthy methods include roasting, grilling, broiling, baking, poaching, steaming, and stir-frying. ??? Choose foods that contain no trans fat [...] use ??? Do not drink alcohol if: ??? Your health care provider tells you not to drink. ??? Your heart was damaged by alcohol, or you have severe heart failure. ??? You are , may be , or are planning to become . ??? If you drink alcohol: ??? Limit how much you have to: ??? 0???1 drink a day for women. ??? 0???2 drinks a day for men. ??? Know how much alcohol is in your drink. In the [place] one drink equals one 12 oz bottle of beer (355 mL), one 5 oz glass of wine (148 mL), or one 1?? oz glass of hard liquor (44 mL). Lifestyle ??? Do not use any products that contain nicotine or tobacco. These products include cigarettes, chewing tobacco, and vaping devices, such as e-cigarettes. If you need help quitting, ask your health care provider. ??? Do not use nicotine gum or patches before talking to your health care provider. ??? Do not use illegal drugs. ??? Work with your health care provider to safely reach the right body weight. ??? Do physical activity if told by your health care provider. Talk to your health care provider before you begin an exercise if: ??? You are an older adult. ??? You have severe heart failure. ??? Learn [...] much fluid is building up in yourbody. ??? Weigh yourself every morning after you urinate and before you eat breakfast. ??? Wear the same amount of clothing each time you weigh yourself. ??? Record your daily weight. Provide your health care provider with your weight record. ??? Monitor and record your pulse and blood pressure as told by your health care provider. Dealing with extreme temperatures ??? If the weather is extremely hot: ??? Avoid vigorous physical activity. ??? Use air conditioning or fans, or find a cooler location. ??? Avoid caffeine and alcohol. ??? Wear loose-fitting, lightweight, and light-colored clothing. ??? If the weather is extremely cold: ??? Avoid vigorous activity. ??? Layer your clothes. ??? Wear mittens or gloves, a hat, and a face covering when you go outside. ??? Avoid alcohol. Follow these instructions at home: ??? Stay up to date with vaccines. Pneumococcal and flu (influenza) vaccines are especially important in preventing infections of the airways. ??? Keep all follow-up visits. This is important. Contact a health care provider if you: ??? Gain 2???3 lb (1???1.4 kg) in 24 hours or 5 lb (2.3 kg) in a week. ??? Have increasing shortness of breath. ??? Are unable to participate in your usual physical activities. ??? Get tired easily. ??? Cough more than normal, especially with physical activity. ??? Lose your appetite or feel nauseous. ??? Have any swelling or more swelling in areas such as your hands, feet, ankles, or abdomen. ??? Are unable to sleep because it is hard to breathe. ??? Feel like your heart is beating quickly (palpitations). ??? Become dizzy or light-headed when you stand up. ??? Have feelings of depression or sadness. Get help right away if you: ??? Have trouble breathing. ??? Notice, or your family notices, a change in your awareness, such as having trouble staying awake or concentrating. ??? Have pain or discomfort in your chest. ??? Have an episode of fainting (syncope). These symptoms may represent a serious problem that is an emergency. Do not wait to see if the symptoms will go away. Get medical help right away. Call your local emergency services (911 in the [place] Do not drive yourself to the hospital. Summary ??? Heart failure is a serious condition. To care for yourself, you may be asked to change your diet, take certain medicines, and make other lifestyle changes. ??? Take your medicines every day. Do not stop taking them unless your health care provider tells you to do so. ??? Limit salt and eat heart-healthy foods, such as fresh or frozen fruits and vegetables, fish, lean meats, legumes, fat-free or low-fat dairy products, and whole-grain or high-fiber foods. ??? Ask your health care provider if you have any alcohol restrictions. You may have to stop drinking alcohol if you have severe heart failure. ??? Contact your health care provider if you [...] provider. Document Revised: 09/28/2022 Document Reviewed: 01/10/2021 [employer] Patient Education ?? 2023 [employer] 05/14/2025 09:28:37 Exercising to Lose Weight Exercising to Lose [...] the more calories you burn. Exercise also: ??? Improves mood. ??? Reduces stress and tension. ??? Improves your overall fitness, flexibility, and endurance. ??? Increases bone strength. Moderate-intensity exercise Moderate-intensity exercise is any activity that gets you moving enough to burn at least three times more energy (calories) than if you were sitting. Examples of moderate exercise include: ??? Walking a mile in 15 minutes. ??? Doing light yard work. ??? Biking at an easy pace. Most people [...] a conversation. Examples of vigorous exercise include: ??? Running. ??? Playing a team sport, such as football, basketball, and soccer. ??? Jumping rope. Most people should get at least 75 minutes a week of vigorous exercise to maintain their body weight. What actions can I take to lose weight? The amount of exercise you need to lose weight depends on: ??? Your age. ??? The type of exercise. ??? Any health conditions you have. ??? Your overall physical ability. Talk to your health care provider about how much exercise you need and what types of activities aresafe for you. Nutrition ??? Make changes to your diet as told by your health care provider or diet and nutrition teacher(dietitian). This may include: ??? Eating fewer calories. ??? Eating more protein. ??? Eating less unhealthy fats. ??? Eating a diet that includes fresh fruits and vegetables, whole grains, low- fat dairy products, and lean protein. ??? Avoiding foods with added fat, salt, and sugar. ??? Drink plenty of water while you exercise to prevent dehydration or heat stroke. Activity ??? Choose an activity that you enjoy and set realistic goals. Your health care provider can help you make an exercise plan that works for you. ??? Exercise at a moderate or vigorous intensity most days of the week. ??? The intensity of exercise may vary from person to person. You can tell how intense a workout isfor you by paying attention to your breathing and heartbeat. Most people will notice their breathing and heartbeat get faster with more intense exercise. ??? Do resistance training twice each week, such as: ??? Push-ups. ??? Sit-ups. ??? Lifting weights. ??? Using resistance bands. ??? Getting short amounts of exercise can be just as helpful as long, structured periods of exercise. If you have trouble finding time to exercise, try doing these things as part of your daily routine: ??? Get up, stretch, and walk around every 30 minutes throughout the day. ??? Go for a walk during your lunch break. ??? Park your car farther away from your destination. ??? If you take public transportation, get off one stop early and walk the rest of the way. ??? Make phone calls while standing up and walking around. ??? Take the stairs instead of elevators or escalators. ??? Wear comfortable clothes and shoes with good support. ??? Do not exercise so much that you hurt yourself, feel dizzy, or get very short of breath. Where to find more information ??? [place] Department of Health and Human Services: www.hhs.gov ??? Centers for Disease Control and Prevention: www.cdc.gov Contact a health care provider: ??? Before starting a new exercise program. ??? If you have questions or concerns about your weight. ??? If you have a medical problem that keeps you from exercising. Get help right away if: ??? You have any of the following while exercising: ??? Injury. ??? Dizziness. ??? Difficulty breathing or shortness of breath that does not go away when you stop exercising. ??? Chest pain. ??? Rapid heartbeat. These symptoms may represent a serious problem that is an emergency. Do not wait to see if the symptoms will go away. Get medical help right away. Call your local emergency services (911 in the [place] Do not drive yourself to the hospital. Summary ??? Getting regular exercise is especially important if you are overweight. ??? Being overweight increases your risk of heart disease, stroke, diabetes, high blood pressure, and several types of cancer. ??? Losing weight happens when you burn more calories than you eat. ??? Reducing the amount of calories you eat, and getting regular moderate or vigorous exercise eachweek, helps you lose weight. This information is not intended to replace advice given to you by your health care provider. Make sure you discuss any questions you have with your health care provider. Document Revised: 08/16/2021 Document Reviewed: 08/16/2021 [employer] Patient Education ?? 2023 [employer] Follow Up Care 05/13/2025 12:30:32 With:SRINIVAS Pereyra Tammy L. Address: [address] [place] [id number] When:Within 1 Month(s) Comments:weight loss Reason for Referral Referred ByEffective DateStatusIndicationReasonReferred by: WANDA Pereyra CNP, Tammy L.[id number]:45:20.000-05:00ActiveUnspecified diastolic (congestive) heart failure Type 2 diabetes mellitus with other specified complication Persons encountering health services in other specified circumstances Body mass index [BMI] 50.0-59.9, adult Patient Care team information Care Team Personnel Name: SRINIVAS Pereyra Tammy L. Position: FT Ambulatory - Primary Care - CESAR Member Role: Primary Care Physician Address: [address] [place] [address] Telecom: Name: Nataliia Gatica Position: [employer]: Claims Followup Rep (Torin) Member Role: [employer]: Claims Followup Rep (Safety Companion) Name: Gracy Maxwell R.N. Position: FT [employer] - Self Assign Member Role: Pharmacy Intern Care Team Related Persons Name: MARY KATE BLEDSOE Name: CONCEPCION GOMEZ Insurance Providers Guarantor name: TIFFANIE LADI Health Plan Information #: 1 Payer: [facility] Payer Identifier: [id number] Member Number: [id number] Group Number: [id number] Subscriber Identifier: [id number] Relationship to Subscriber: self Coverage Type: MEDICAID Coverage Verification Date: 25 Telecom: [phone] Address: [facility] [phone]
--- OUTSIDE RECORDS SUMMARY | 2025-05-22 10:33 | XMS_ITS | Clinical Summary ---
Author Organization [facility] Address [address] [place] [address] Phone Care Team Providers Care Steward/Stewardess Third Class Name Role Phone Unavailable Primary Care Provider Unavailabl e Social History Tobacco UseTypesPacks/DayYears UsedDateSmoking Tobacco: Never Assessed CommentsUnknownSex and Gender InformationValueDate RecordedSex Assigned at Not on fileLegal ApxFdxraq12/13/2023 11:45 AM EDTGender IdentityNot on file Sexual OrientationNot on file Plan of Treatment Health MaintenanceDue DateLast DoneCommentsCT Hcgetrnhzwxg23/15/1963Colonoscopy 1962Colorectal Cancer Diaaapykf03/15/1963FIT-DNA (Cologuard)1962FIT 1962HIV Uacsizerw12/15/1963Lipid Panel1962 1929Nomnscaudxhyz41/15/1963 Yearly Adult Rzqfsxnw85/15/1963MMR Vaccines (1 of 1 - Standard series)11/16/1963 Hepatitis C Aihdwtwer00/15/1981Cervical Cancer Hbdglheiq98/15/1984HPV/Cotest 11/16/1983Pap Smear11/16/1983DTaP/Tdap/Td Vaccines (1 - Tdap)1984Mammogram 2002Pneumococcal [...]
--- OUTSIDE RECORDS SUMMARY | 2025-05-22 10:34 | XMS_ITS | Clinical Summary ---
Author Organization [facility] Address [address] [facility] [place] [address] Care Team Providers Care Cardiothoracic Icu Rn Name Role Phone Unavailable Primary Care Provider Unavailabl e Social History Tobacco UseTypesPacks/DayYears UsedDateSmoking Tobacco: Never Assessed CommentsUnknownSex and Gender InformationValueDate RecordedSex Assigned at Not on fileLegal ZhbTtnmgl74/15/2023 8:15 PM EDTGender IdentityNot on fileSexual OrientationNot on file Last Filed Vital Signs Vital SignReadingTime TakenCommentsBlood Qfeyxkrw298/9411 12:00 PM EST Pulse--Temperature--Respiratory Rate--Oxygen Saturation--Inhaled Oxygen Concentration--Rzucrb772 kg (295 lb 6.4 oz)06/01/2018 12:00 PM ERFNfoqwd644.4 cm (5' 5.5 )06/01/2018 12:00 PM ESTBody Mass Index48.41108/01/2017 12:00 PM EST Plan of Treatment Not on file Insurance * Guarantor: Carmen Casiano KAccount TypeRelation to PatientDate of BirthPhone Billing AddressPersonal/MrcjdiYytz18/15/1961 [address] [place] [address]
--- OUTSIDE RECORDS SUMMARY | 2025-05-22 10:34 | XMS_ITS | Clinical Summary ---
Author Organization [facility] Address [address] [place] [address] Care Team Providers Care Volunteer Services Specialist Name Role Phone Paris Manning IRVING Primary Care Provider [phone] Allergies Active AllergyReactionsCriticalityNoted NuxgVaujduuaKmrcbgzuwaIxwo92/07/2025 Other Reaction(s): Leg Edema ZcspjtoxiXcsqklbu73/07/2025 Medications MedicationSigDispense QuantityRefillsLast FilledStart DateEnd DateStatus Albuterol [...] with body mass index of 50 or tcwqut2311/07/2024 Social History Tobacco UseTypesPacks/DayYears UsedDateSmoking Tobacco: Every DayCigarettes0.5 45.9Started: 07/04/1979mokeless Tobacco: Never Tobacco Cessation:Ready to Q uit: Yes; Counseling Given: No Alcohol UseStandard Drinks/WeekCommentsYes0 (1 standard drink = 0.6 oz pure alcohol)occasionallyCommentsNoSex and Gender InformationValueDate RecordedSex Assigned at BirthNot on fileLegal PoxMerlrg04/28/2025 1:05 PM EDT Gender IdentityNot on fileSexual OrientationNot on file Last Filed Vital Signs Vital SignReadingTime TakenCommentsBlood Icprtdsz946/8211/07/2024 9:58 AM EDT Wqvew679811/07/2024 9:58 AM EDTTemperature--Respiratory Ulcf010911/07/2024 9:58 AM EDTOxygen Sswftukwdq29%11/07/2024 9:58 AM EDTInhaled Oxygen Concentration-- Npvsra828.8 kg (339 lb)11/07/2024 9:58 AM EBWZhmddr013.6 cm (5' 6 )11/07/2024 9:58 AM EDTBody Mass Index54.72011/07/2024 9:58 AM EDT Plan of Treatment Health MaintenanceDue DateLast DoneCommentsHEPATITIS C VIRUS AETWMBHMP27/15/1963 CLKBJFVDN80/15/1963HIV SCREENING LBTUGRORIA68/15/1978CERVICAL CANCER SCREENING LPVOJGEXOU70/15/1984LIPID RBSUGVCWD61/15/2003COLORECTAL CANCER SCREENING JUMVGSUJNU32/15/2008LUNG CANCER CWIDMXXER34/15/2013RSV VACCINE (1 - Risk 50-74 years 1-dose series)2012MAMMOGRAM SCREENING MNINLRNIPT96/29/2020 09/29/2018, 06/30/2017PNEUMOCOCCAL VACCINE SERIES (2 of 2 - PCV)04/10/2021 04/10/2020, 12/16/2017COVID-19 VACCINE ( season)5107/31/2022, 05/11/2022, 12/15/2021, Additional history existsINFLUENZA VACCINE (#1) 5007/11/2024, 03/18/2023, 05/11/2022, Additional history existsTETANUS , 10/27/2014TDAP (ADULT)Xgsdxqjkm43/08/2020, 10/27/2014 ZOSTER (SHINGLES) ZBACMMLSxtkpnqve21/06/2021, 07/09/2020, 04/10/2020, Additional history existsHEP B VACCINEAged OutNo longer eligible based on patient's age to complete this topic Insurance Care Teams Team MemberRelationshipSpecialtyStart DateEnd Date Paris Manning, [employer] [address] [place] [address] PCP - GeneralNurse Practitioner - [facility]11/07/24
--- OUTSIDE RECORDS SUMMARY | 2025-05-22 10:36 | XMS_ITS | Patient Health Record ---
Author Organization [facility] Address [address] [place] [address] Care Team Providers Care Make Up Editor Name Role Phone Gio Menendez Unavailable [phone] Allergies No Known Allergies Reason For Referral No Information Medications Medication SIG (Take, Route, Frequency, Duration) Notes Start Date End Date Status spironolactone 25 mg ; Duration: 90 Days ActiveARIPiprazole 2 mg; Duration: 90 RnazJzhjzfqndyeqpmlgpg13/20/2024ctive gabapentin 300 mg1 cap(s) orally 1 pill once a day for 3 days, 1 pill twice a day for 3 days, 1 pill three times a day there after; Duration: 30 day(s) 01/10/2024ctiveTRAZODONE HCL 50 MGtake 1 tablet by mouth at bedtime; Duration: 30 DaysActivePotassium Chloride (Eqv-K-Tab) 20 mEq; Duration: 30 DaysActive pantoprazole 40 mgtake 1 tablet by mouth once daily; Duration: 90 DaysActive Medrol Dose Pack 4 mgas directed ORAL HVSRFXLZ39/20/2024ctivealbuterol 11/21/2023ctivefurosemide 40 mg; Duration: 90 SxzkUfofaupjcqnJVQA60/20/2024 ActiveTrulicity Pen 1.5 mg/0.5 mLinject 1 and 1/2 milligram subcutaneously every week; Duration: 28 DaysActiveJardiance 10 mg; Duration: 90 DaysActiveFLUoxetine HCl 20 MG; Duration: 90 DaysActive Social History Tobacco Use: Social History Observation Description Date Details (start date - stop date) Current Smoker NA - NA Smoking History Question Answer Notes Smoking Status Current Smoker Alcohol Screening Question Answer Notes Did you have a drink containging alcohol in the last year? Yes Drneve2UaqhbyimmcikqyRlotypvp Problems Problem Type SNOMED Code ICD Code Onset Dates Problem Status W/U Status Risk Notes Problem Localized, primary o steoarthritis of the pelvic region and thigh (446060082) Unilateral primary osteoarthritis, right hip (M16.11) ActiveconfirmedProblemLumbar radiculopathy (585655813)Radiculopathy, lumbar region (M54.16)ActiveconfirmedProblemLumbosacral spondylosis with radiculopathy (935035532)Lumbosacral spondylosis with radiculopathy (M47.27)Activeconfirmed ProblemSpinal stenosis of lumbar region (63537404)Lumbosacral spinal stenosis (M48.07)ActiveconfirmedProblemDegeneration of lumbosacral intervertebral disc (04336982)DDD (degenerative disc disease), lumbosacral (M51.37)Activeconfirmed ProblemTrochanteric bursitis of right hip (274767832311556)Trochanteric bursitis of right hip (M70.61)ActiveconfirmedProblemArthralgia of the pelvic region and thigh (497579697)Pain in right hip (M25.551)ActiveconfirmedProblemLumbar radiculopathy (129507391)Lumbar radiculopathy (M54.16)ActiveconfirmedProblem Arthralgia of the pelvic region and thigh (717770297)Right hip pain (M25.551) ActiveconfirmedProblemDegeneration of lumbar intervertebral disc (46724434) Degenerative lumbar disc (M51.36)Activeconfirmed Plan Of Treatment Pending [...] End Date Medicaid [employer] [place] [address] [place] [id number] ARRIAGA - patient is the insured Medical (General) History Medical History History ICD Code Asthma/COPD Type II diabetesDepressionAnxietySleep apneaCPAP Machine:Do you use the CPAP machine? Yes
--- OUTSIDE RECORDS SUMMARY | 2025-05-22 10:36 | XMS_ITS | Clinical Summary ---
Author Organization [facility] Address [address], [address] [place] [address] Care Team Providers Care Shift Mechanic Name Role Phone Nigel Paris DARLEEN - BUS ASSISTANT Primary Care Provider + Allergies No known active allergies Medications MedicationSigDispense QuantityRefillsLast FilledStart DateEnd DateStatus ARIPiprazole (ABILIFY) 2 MG tablet Take 1 tablet by mouth nightlyActive atorvastatin (LIPITOR) 80 MG tablet Take 1 tablet by mouth nightlyActive FLUoxetine (PROZAC) 40 MG capsule Take 1 capsule by mouth nightlyActive albuterol sulfate HFA 108 (90 Base) MCG/ACT inhaler Inhale 2 puffs into the lungs every 4 hours as needed for WheezingActive pantoprazole (PROTONIX) 40 MG tablet Indications:Gastroesophageal reflux disease, esophagitis presence not specified Take 1 tablet by mouth daily 30 tablet Active hydroCHLOROthiazide (HYDRODIURIL) 25 MG tablet Take 2 tablets by mouth dailyActive metFORMIN (GLUCOPHAGE) 500 MG tablet Take 1 tablet by mouth 2 times daily (with meals)Active furosemide (LASIX) 20 MG tablet Take 2 tablets by mouth daily as neededActive loratadine (CLARITIN) 10 MG tablet Take 1 tablet by mouth dailyActive omeprazole (PRILOSEC) 20 MG delayed release capsule Take 1 capsule by mouth dailyActive montelukast (SINGULAIR) 10 MG tablet Take 1 tablet by mouth nightlyActive traZODone (DESYREL) 150 MG tablet Take 1 tablet by mouth nightly as needed for SleepActive tiotropium (SPIRIVA RESPIMAT) 1.25 MCG/ACT AERS inhaler Inhale 2 puffs into the lungs dailyActive budesonide-formoterol (SYMBICORT) 160-4.5 MCG/ACT AERO Inhale 2 puffs into the lungs 2 times dailyActive D 5000 125 MCG (5000 UT) CAPS capsule take 1 capsule by mouth once daily with food10/14/2022ctive Dulaglutide 0.75 MG/0.5ML SOPN Inject 0.75 mg into the skin09/13/2022ctive empagliflozin (JARDIANCE) 10 MG tablet Take by mouth09/22/2022ctive glipiZIDE (GLUCOTROL XL) 2.5 MG extended release tablet Take 1 tablet by mouth daily10/08/2022ctive losartan (COZAAR) 50 MG tablet Take by mouth08/20/2022ctive potassium chloride (KLOR-CON M) 20 MEQ extended release tablet 12/12/2022ctive ENTRESTO 24-26 MG per tablet take 1 tablet by mouth twice a day (STOP LOSARTAN 50MG)11/30/2022ctive Semaglutide,0.25 or 0.5MG/DOS, 2 MG/1.5ML SOPN Inject 0.25 mg into the skin09/06/2022ctive spironolactone (ALDACTONE) 25 MG tablet 12/14/2022ctive MELOXICAM PO MeloxicamActive ARIPiprazole (ABILIFY PO) AbilifyActive Fluticasone-Salmeterol (ADVAIR DISKUS IN) See Instructions, Refill(s) ctive Active Problems ProblemNoted DateDiagnosed DateLeukedema of ealfxf9710/08/20209430Sbzlzi36/07/2021 Pain, abdominal, smnfusgfnsc02/14/2020Syncope and uglqraoa79/16/2018Degenerative arthritis of left knee03/16/2018Presence of left artificial knee joint03/16/2018 DJD (degenerative joint disease)03/15/2018 Immunizations ImmunizationAdministration DatesNext DueInfluenza Virus Hcaxrss4203/19/2018 Family History RelationNameStatusCommentsBrother 1AliveBrother 2AliveBrother 3AliveFather DeceasedMaternal GrandfatherDeceasedMaternal GrandmotherDeceasedMotherDeceased Paternal GrandfatherDeceasedPaternal GrandmotherDeceasedSisterAlive Social History Tobacco UseTypesPacks/DayYears UsedDateSmoking Tobacco: Every DayCigarettes Smokeless Tobacco: Never Tobacco Cessation:Ready to Q uit: Not Asked; Counseling Given: Not Answered Alcohol UseStandard Drinks/WeekCommentsYes0 (1 standard drink = 0.6 oz pure alcohol)patient had 2 bottles of rum todayAUDIT-CAnswerDate RecordedQ1: How often do you have a drink containing alcohol?4 or more times a week10/06/2023Q2: How many drinks containing alcohol do you have on a typical day when you are drinking?1 or Q3: How often do you have six or more drinks on one occasion?Never10/06/2023Interpersonal Safety Domain Source: IP Abuse Screening AnswerDate RecordedHow often does anyone, including family and friends, physically hurt you?Not on file04/29/2023How often does anyone, including family and friends, scream or curse at you?Not on file04/29/2023How often does anyone, including family and friends, insult or talk down to you?Not on file04/29/2023 How often does anyone, including family and friends, threaten you with harm?Not on file04/29/2023Read-Only, Retired: Physical AeyeoKelynv35/27/2023Read-Only, Retired: Verbal MfmyvEffntt08/27/2023Read-Only, Retired: Emotional abuseDenies 04/29/2023Financial abuseNot on file04/29/2023Sexual abuseNot on file04/29/2023 CommentsNoSex and Gender InformationValueDate RecordedSex Assigned at BirthNot on fileLegal GapCrrxmn67/17/2017 11:43 AM EDTGender IdentityNot on file Sexual OrientationNot on file Last Filed Vital Signs Vital SignReadingTime TakenCommentsBlood Ltddunkr174/7304 10:01 AM EDT Rybmh354910/06/2023 10:27 AM BSYMsuxupqbayg28.8 ??C (98.2 ??F)10/06/2023 9:12 AM EDTRespiratory Lbzc076310/06/2023 10:27 AM EDTOxygen Nlxxuwabma70%10/06/2023 10:27 AM EDTInhaled Oxygen Concentration--Lqlicf067.9 kg (357 lb)10/06/2023 9:10 AM ZIAIfekku345.6 cm (5' 6 )10/06/2023 9:10 AM EDTBody Mass Index57.62010/06/2023 9:10 AM EDT Plan of Treatment Health MaintenanceDue DateLast DoneCommentsDepression Aqgwlc7611/15/1974HIV screen 1977Hepatitis C poukcu7711/15/1980Pap smear11/16/1983Cervical cancer screen 1992HPV (without or with Pap)1992FIT/FOBT: Average risk11/16/2007 Fecal-DNA (Cologuard): Average risk11/16/2007Sigmoidoscopy/CT colonography 11/16/2007Shingles vaccine (3 of 3)/12/2020, 07/09/2020, 04/10/2020, Additional history existsBreast cancer iewmla64/, 06/30/2017 Pneumococcal 50+ years Vaccine (2 of 2 - PCV), 12/16/2017 Respiratory Syncytial Virus (RSV) or age 60 yrs+ (1 - Risk 60-74 years 1-dose series)11/15/20222958Kfryaj26/07/164978/01/2024, 09/06/2019Flu vaccine (#1) /, 05/11/2022, 05/05/2021, Additional history existsCOVID-19 Vaccine ( season)/, 05/11/2022, 12/15/2021, Additional history bbahcnTzqkddwhuir20Colorectal Cancer Screen 03/17/2030DTaP/Tdap/Td vaccine (3 - Td or Tdap), 10/27/2014 Pneumococcal 0-49 years SbwxtwzHjanwzttggao17/08/2020, 12/16/2017A1C test (Diabetic or Prediabetic)Uowserbyrlkj19/07/2024, 09/06/2019Diabetes screen Zftefpylivvo38/07/2024, 09/06/2019Hepatitis A vaccineAged OutNo longer eligible based on patient's age to complete this topicHepatitis B vaccineAged OutNo longer eligible based on patient's age to complete this topicHib vaccineAged Out No longer eligible based on patient's age to complete this topicMeningococcal (ACWY) vaccineAged OutNo longer eligible based on patient's age to complete this topicMeningococcal B vaccineAged OutNo longer eligible based on patient's age to complete this topicPolio vaccineAged OutNo longer eligible based on patient's age to complete this topic Medical Devices ImplantedTypeAreaManufacturerDevice IdentifierShelf Expiration DateModel / Serial / LotCement Smartghv W/ Gent 40gr Must Order 20ea Implanted:Qty: 1 on 03/15/2018 [facility]: KneeJNJ: [employer]-PMM04/02/[id number] / / [id number] Smartghv W/ Gent 40gr Must Order 20ea Implanted:Qty: 1 on 03/15/2018 [facility]: KneeJNJ: [employer]-PMM01/31/[id number] / / [id number] Smartghv W/ Gent 40gr Must Order 20ea Implanted:Qty: 2 on 04/26/2018 by [facility]ementRight: KneeJNJ: [employer]-PMM08/03/[id number] / / [id number] Knee Patella Asym X3 [id number] Implanted:Qty: 1 on 04/26/2018 [facility]: KneeSTRYKER: ORTHOPAEDICS-PMM02/26/[id number] / / [id number] Procedures Procedure NamePriorityDate/TimeAssociated DiagnosisCommentsLIPID PANELRoutine 08/10/2023 3:41 PM EST HEMOGLOBIN N4QRdbxkxo39/07/2024 3:41 PM EST WANG DIGITAL SCREEN W OR WO CAD VENNZWQOOPdirszb35/29/2019 10:49 AM EDT Breast cancer screening from Last 3 Months or Most Recently Relevant to Health Maintenance Results * Hemoglobin A1C (08/10/2023 3:41 PM EST)ComponentValueRef RangeTest Method Analysis TimePerformed AtPathologist SignatureHemoglobin A1C5.44.0 - 6.0 % 08/10/2023 3:41 PM ESTMERCY LABORATORIESEstimated Avg Dstjmtm356gh/dL 08/10/2023 3:41 PM ESTMERCY LABORATORIESComment: The ADA and AACC recommend providing the estimated average glucose result to permit better patient understanding of their HBA1c result. Specimen (Source)Anatomical Location / LateralityCollection Method / Volume Collection TimeReceived Time08/10/2023 3:41 PM EST08/10/2023 3:42 PM EST Narrative Authorizing ProviderResult TypeResult StatusTammandre Manning DRAW FRAME OPERATOR - CNPCHEMISTRY ORDERABLESFinal ResultPerforming OrganizationAddressCity/State/ZIP CodePhone Number [facility] [address] [place] [address], [facility] [phone] [facility] [address] [id number], [facility] [phone] * (ABNORMAL) Lipid Panel (08/10/2023 3:41 PM EST)ComponentValueRef RangeTest MethodAnalysis TimePerformed AtPathologist RqeopdqonBsdevdraocf280(H)<200 mg/dL08/10/2023 3:41 PM ESTMERCY LABORATORIESComment: Cholesterol Guidelines: <200 Desirable 200-240 ??Borderline >240 Undesirable HDL95>40 mg/dL08/10/2023 3:41 PM ESTMERCY LABORATORIESComment: HDL Guidelines: <40 Undesirable 40-59 ?Borderline >59 Desirable LDL Uhfljwqfwah022 - 130 mg/dL08/10/2023 3:41 PM ESTMERCY LABORATORIESComment: LDL Guidelines: <100 Desirable 100-129 ?? Near to/above Desirable 130-159 ?? Borderline >159 Undesirable Direct (measured) LDL and calculated LDL are not interchangeable tests. Chol/HDL Ratio2.2<502 3:41 PM ESTMERCY LABORATORIESComment:Triglycerides 221(H)<150 mg/dL08/10/2023 3:41 PM ESTMERCY LABORATORIESComment: Triglyceride Guidelines: <150 Desirable 150-199 ??Borderline 200-499 ??High >499 Very high Based on AHA Guidelines for fasting triglyceride, April 2012. Specimen (Source)Anatomical Location / LateralityCollection Method / Volume Collection TimeReceived Time08/10/2023 3:41 PM EST08/10/2023 3:42 PM EST Narrative Authorizing ProviderResult TypeResult StatusTammy Nigel DRAW FRAME OPERATOR - CNPCHEMISTRY ORDERABLESFinal ResultPerforming OrganizationAddressCity/State/ZIP CodePhone Number [facility] [address] [place] [address], [facility] [phone] [facility] [address] [place] [address], [facility] [phone] * WANG DIGITAL SCREEN W OR WO CAD BILATERAL (09/29/2018 10:49 AM EDT)Anatomical RegionLateralityModalityBreastBilateralMammographySpecimen (Source)Anatomical Location / LateralityCollection Method / VolumeCollection TimeReceived Time 09/29/2018 10:50 AM EDT Impressions 10/03/2018 9:21 AM EDT [...] be sent to the patient regarding theresults. Authorizing ProviderResult TypeResult StatusMulu Dean DARLEEN - CNPIMG MAMMOGRAPHY ORDERABLESFinal Result from Last 3 Months or Most Recently Relevant to Health Maintenance Insurance Advance Directives * Full Code (Latest Code Status on File) Date ActivatedDate InactivatedComments03/17/2020 11:39 AM03/17/2020 3:44 PM * Full Code Date ActivatedDate InactivatedComments03/17/2020 8:35 AM03/17/2020 11:39 AM * Full Code Date ActivatedDate YwnadioueqiOknleyti41/16/2018 1:23 PM06/19/2018 8:22 PM * Full Code Date ActivatedDate GhcchxspzidScexbhrb78/24/2018 5:22 04/27/2018 1:14 PM * Full Code Date ActivatedDate YexfujonigzNmhzagol17/24/2018 11:04 AM04/26/2018 5:16 PM Care Teams Team MemberRelationshipSpecialtyStart DateEnd Date Paris Manning APRN - [place] [address] [facility] [place] [address] PCP - GeneralNurse Practitioner, Jotupf46/27/23
--- OUTSIDE RECORDS SUMMARY | 2025-05-22 10:37 | XMS_ITS | CCD ---
Author Organization [facility] Inform ion [facility] Care Team Providers Care Realtime Reporter Name Role Phone Mulu Dean Primary Care Provider [phone] Mulu DEAN Primary Care Physician [phone] Paris Rust Primary Care Physician [phone] Jermaine RIVERAN - PHOTO OFFSET PRINTER, Mulu Primary Care Pro vider NON STAFF Primary Care Provider Unavailabl e DO Joo Ramos Emergency Provider MD Marilyn Sun Admit Provider [phone] MD Marilyn uSn Attending Provider DO Joo Ramos Emergency Provider MD Marilyn Sun Admit Provider [phone] MD José Sanchez Attending Provider MD Lupis Schwartz Primary Care Provider [phone] Marilyn Sun Admitting Unavailable José Sanchez Attending Unavailable Lupis Schwartz Primary Care Unavailable Lupis SCHWARTZ Primary Care Physician Jermaine CAP SIZER - PHOTO OFFSET PRINTER, Mulu Primary Care Pro vider Nigel MOREJON - Paris VILLATORO Primary Care Provider PARIS RUST Referring Unavailable PARIS RUST Primary Care Unavailable Paris Rust Primary Care Physician KAMALJIT MENENDEZ Attending Unavailable KAMALJIT MENENDEZ Referring Unavailable NIGEL, PARIS Primary Care Unavailable ALIRIO RAMIREZ Referring Unavailab le NIGEL, PARIS Primary Care Unavailable NATHANIEL, EDA Referring Unavailable NIGEL, PARIS Primary Care Unavailable KAMALJIT MENENDEZ Referring Unavailable NIGEL, PARIS Primary Care Unavailable NIGEL, PARIS Referring Unavailable NIGEL, PARIS Primary Care Unavailable NIGEL, PARIS Referring Unavailable NIGEL, PARIS Primary Care Unavailable NIGEL, PARIS Referring Unavailable NIGEL, PARIS Primary Care Unavailable NATHANIEL, EDA Referring Unavailable NIGEL, PARIS Primary Care Unavailable NATHANIEL, EDA Referring Unavailable NIGEL, PARIS Primary Care Unavailable NIGEL, PARIS Primary Care Unavailable LYNSEY, VESELIN Attending Unavailable LYNSEY, VESELIN Attending Unavailable NIGEL, PARIS Primary Care Unavailable NATHANIEL, EDA Referring Unavailable NIGEL, PARIS Primary Care Unavailable Nigel, MSN, CAP SIZER-PHOTO OFFSET PRINTER Paris Hamilton Attending U jesika Rust, MSN, CAP SIZER-PHOTO OFFSET PRINTER Paris Hamilton Admitting U jesika CARBAJAL, XXXX [...] Walker Phillipal Attending Unavaila caroline Rust, MSN, CAP SIZER-PHOTO OFFSET PRINTER Paris Hamilton Attending U jesika Rust, MSN, CAP SIZER-PHOTO OFFSET PRINTER Paris Hamilton Attending U jesika Rust, MSN, CAP SIZER-PHOTO OFFSET PRINTER Paris Hamilton Attending U navailshahab Rust, MSN, CAP SIZER-PHOTO OFFSET PRINTER Paris Hamilton Attending U jesika Rust, MSN, CAP SIZER-PHOTO OFFSET PRINTER Paris Hamilton Attending U Alirio Ennis Attending Unavaila ble NONE, XXXX Referring Unavailable Nigel Paris VILLATORO Primary Care Provider Nigel, Paris L. Attending Unavailable Nigel, Paris L. Attending Unavailable Nigel, Paris L. Attending Unavailable Nigel, Paris L. Admitting Unavailable Nigel, MSN, CAP SIZER-PHOTO OFFSET PRINTER Paris L. Admitting U navailable Nigel, MSN, CAP SIZER-PHOTO OFFSET PRINTER Paris L. Attending U navailable Surjitjdmomo, Astrit H Attending Unavailable Abisai Kaur Attending [...] Nigel, Paris L. Attending Unavailable Nigel, MSN, CAP SIZER-PHOTO OFFSET PRINTER Paris L. Admitting U navailable Nigel, MSN, CAP SIZER-PHOTO OFFSET PRINTER Paris L. Attending U navailable Nigel, Paris [...] Attending Unavailable Glenn Perkins DO Attending Provider [phone] Nigel ELECTRICAL CAD DESIGNER-C, Paris L Primary Care Provider Spencer SAMPSON, Calvin Hunt Attending Unavailable Gimarleyitis , Calvin Hunt Attending Unavailable Giedraitis , Calvin Hunt Attending Unavailable Giedraitis , Calvin Hunt Attending Unavailable Gieditis , Andkelli Hunt Attending Unavailable Giedraitis , Andkelli Hunt Attending Unavailable Oneal Newman Attending Unavailable Paris Rust Attending Unavailable Paris Rust Attending Unavailable Paris Rust Attending Unavailable AISHA Hernandez Attending Unavailable NONE, XXXX Referring Unavailable AISHA Hernandez Attending Unavailable NONE, XXXX Referring Unavailable Allergies Allergy ClassificationReported Allergen(s)Allergy TypeDate of OnsetReaction(s) FacilityamLODIPine (1 source)amLODIPine; Translations: [amlodipine]Drug AllergyLeg [facility] HospitalAngiotensin Converting Enzyme (DESMOND) Inhibitors (1 source)Lisinopril; Translations: [lisinopril]Drug AllergyPersistent cough (finding), Tongue swelling (finding)[facility] (1 source)metFORMIN; Translations: [metformin]Drug AllergyDiarrhea (finding) [facility] (20 sources)amLODIPine; Translations: [amlodipine]Drug Dbylbzu91-86-2670[facility] (20 sources)Lisinopril; Translations: [lisinopril]Drug AllergyPersistent cough (finding), Tongue swelling (finding)[facility] (20 sources)metFORMIN; Translations: [metformin]Drug Jgqfmrt46-60-3091Lcxpkxcc (finding), [facility]arrhea[facility] (13 sources)No Known Medication Allergies; Translations: [No Known Medication Allergies]Propensity to adverse reactions (disorder)[facility] Medications Current Medications MedicationDrug Class(es)DatesSig (Normalized)Sig (Original)0.25 MG, 0.5 MG Dose 3 ML semaglutide 0.68 MG/ML Pen Injector [Ozempic] (4 sources)Start: 09-35-3377iqzdcf 0.5 mg by subcutaneous injection every week Ozempic 2 mg/3 mL (0.25 mg or 0.5 mg dose) subcutaneous solution 0.5 mg, SubCutaneous, qWeek, # 2 EA, Refills(s) 0, Pharmacy: [id number], 168, cm, 07/18/24 11:59:00 EST, Height/Length Dosing, 148.4, kg, 07/18/24 11:59:00 EST, Weight Dosing Start Date: 07/18/24 Status: OrderedAdvair HFA 115 mcg-21 mcg/inh inhalation aerosol with adapter (3 sources)Start: 65-96-6891lbsw 2 puff(s) by inhalation twice dailyAdvair HFA 115 mcg-21 mcg/inh inhalation aerosol with adapter 2 puff(s), Inhalation, BID, 8 gm, Refill(s) 1, [facility] #16, 168, cm, 01/29/25 8:19:00 EDT, Height/Length Dosing, 159, kg, 01/24/25 8:55:00 EDT, Weight Dosing Start Date: 01/29/25 Status: Ordered Quantity: 8.0 Unit: g Repeatnumber: 2 Indications: Moderate persistent asthma, uncomplicated;albuterol 0.83 mg/ml inhalation solution (20 sources)beta2-Adrenergic AgonistStart: 03-42-9370qbep 2.5 mg by inhalation every six hoursalbuterol 0.083% Inh Rochelle 3 mL 2.5 mg, 3 mL, NEB, q6hr Shortness of breath or wheezing, 100 EA, Refill(s) 1, [facility] #16, 168, cm, 04/09/25 11:43:00 EDT, Height/Length Dosing, 160.8, kg, 04/09/25 11:43:00 EDT, Weight Dosing Start Date: 04/09/25 Status: Ordered Quantity: 100.0 Unit: EA R epeat number: 2 Indications: Moderate persistent asthma, uncomplicated;Start: 60-41-2193qkhv 2.5 mg by inhalation every six hoursalbuterol 0.083% Inh Rochelle 3 mL 2.5 mg, 3 mL, Inhalation, q6hr Shortness of breath or wheezing, 100 EA, Refill(s) 1, [facility] #[id number], 168, cm, 10/11/23 14:32:00 EDT, Height/Length Dosing, 160.2, kg, 10/11/23 14:32:00 EDT, Weight Dosing Start Date: 10/11/23 Status: OrderedStart: 74-24-5437ubrqidtez (PROVENTIL) nebulizer solution 2.5 mg Start: 47-42-1715vajpjexdm (PROVENTIL) nebulizer solution 2.5 mgStart: 57-41-4342yydgilzmm (PROVENTIL) nebulizer solution 2.5 mgtake 2 puff(s) [...] HFA) 90 mcg/inh inhalation aerosol (12 sources)Start: 38-83-0424afiz 2 puff(s) by inhalation every six hours Albuterol (Eqv-Ventolin HFA) 90 mcg/inh inhalation aerosol 2 puff(s), Inhalation, q6hr Shortness ofbreath or wheezing, 6.7 gm, Refill(s) 1, [facility] #16, 168, cm, 04/09/25 11:43:00 EDT, Height/Length Dosing, 160.8, kg, 04/09/25 11:43:00 EDT, Weight Dosing Start Date: 04/09/25 Status: Ordered Quantity: 6.7 Unit: g Repeat number: 2 Indications: Chronic obstructive pulmonary disease with (acute) exacerbation;Start: 05-68-2402lajn 2 puff(s) by inhalation every six hoursAlbuterol (Eqv-Ventolin HFA) 90 mcg/inh inhalation aerosol 2 puff(s), Inhalation, q6hr Shortness ofbreath or wheezing, 6.7 gm, Refill(s) 1, [facility] #16, 168, cm, 12/27/24 10:40:00 EDT, Height/Length Dosing, 165.6, kg, 12/27/24 10:40:00 EDT, Weight Dosing Start Date: 12/29/24 Status: Ordered Quantity: 6.7 Unit: g Repeat number: 2 Indications: Chronic obstructive pulmonary disease with (acute) exacerbation; Start: 00-67-7134lzod 2 puff(s) by inhalation every six hoursAlbuterol (Eqv- Ventolin HFA) 90 mcg/inh inhalation aerosol 2 puff(s), Inhalation, q6hr Shortness ofbreath or wheezing, 6.7 gm, Refill(s) 3, [facility] #[id number], 168, cm, 11/27/24 14:20:00 EDT, Height/Length Dosing, 159.8, kg, 11/27/24 14:20:00 EDT, Weight Dosing Start Date: 11/27/24 Status:Ordered Quantity: 6.7 Unit: g Repeat number: 4Alcohol wipes (20 sources)Start: 98-43-6745Hudgdhu wipes Alcohol wipes, See Instructions, 100 EA, 3, Use to check BS daily dx E11.9, [facility] #[id number], Supply, 163, cm, 12/30/21 11:09:00 EDT, Height/Length Dosing, 154, kg, 12/30/21 11:09:00 EDT, Weight Dosing Start Date: 04/13/22 Status: Ordered Quantity: 100.0 Unit: EA Repeat number: 4Start: 47-76-4280Djcficv wipes Alcohol wipes, See Instructions, 100 EA, 3, Use to check BS daily dx E11.9, [facility] #[id number], Supply, 163, cm, 12/30/21 11:09:00 EDT, Height/Length Dosing, 154, kg, 12/30/21 11:09:00 EDT, Weight Dosing Start Date: 04/13/22 Status: OrderedStart: 94-22-8175Wmjpyas wipes Alcohol wipes, See Instructions, 300 EA, 3, Use to check BS TID and PRN dx E11.9, [facility], Supply, 170, cm, 05/27/21 8:31:00 EST, Height/Length Dosing, 157.8, kg, 05/27/21 8:31:00 EST, Weight Dosing Start Date: 06/03/21 Status: Orderedamoxicillin 875 mg / clavulanate 125 mg oral tablet (1 source)Penicillin-class AntibacterialStart: 04-09-2025 End: 25-35-9018Uylezgslm 875 mg-125 mg Tab 1 tab(s), Oral, q12hr for 7 day(s), 14 tab(s), Refill(s) 0, [facility] #16, 168, cm, 04/09/25 11:43:00 EDT, Height/Length Dosing, 160.8, kg, 04/09/25 11:43:00 EDT, Weight Dosing Start Date: 04/09/25 Stop Date: 04/16/25 Status: Ordered Quantity: 14.0 Unit: tab(s) Repeat number: 1ARIPiprazole 5 mg oral tablet (20 sources)Atypical AntipsychoticStart: 50-68-4640gitv 1 tablet by mouth once dailyAbilify 5 mg Tab 5 mg = 1 tab(s), Oral, Daily, # 90 tab(s), Refills(s) 4, Pharmacy: [facility] #[id number], 167, cm, 02/22/24 13:09:00 EDT, Height/Length Dosing, 137, kg, 02/22/24 13:09:00 EDT, Weight Dosing Start Date: 05/07/24 Status: Ordered Quantity: 90.0 Unit: tab(s) Repeat number: 5Start: 11-99-7822rblx 1 tablet by mouth once dailyAbilify 2 mg Tab 2 mg = 1 tab(s), Oral, Daily, # 90 tab(s), Refills(s) 3, Pharmacy: [facility] #[id number], 167.6, cm, 12/23/23 10:59:00 EDT, Height/Length Dosing, 136, kg, 12/23/23 10:59:00 EDT, Weight Dosing Start Date: 01/19/24 Status: OrderedARIPiprazole (ABILIFY PO) Abilify 0 Activeatorvastatin 80 mg oral tablet (20 sources)HMG-CoA Reductase Inhibitortake 1 tablet by mouth once daily atorvastatin 80 MG tablet Take 1 tablet by mouth Every night. Activeazithromycin 250 mg oral tablet (1 source)Macrolide AntimicrobialStart: 12-29-2024 End: 17-20-9526zdxz 1 tablet by mouth once dailyazithromycin 250 mg Tab 250 mg = 1 tab(s), Oral, Daily, X 3 day(s), # 3 tab(s), Refills(s) 0, Pharmacy: [facility] #16, 168, cm, 12/27/24 10:40:00 EDT, Height/Length Dosing, 165.6, kg, 12/27/24 10:40:00 EDT, Weight Dosing Start Date: 12/29/24 Stop Date: 01/01/25 Status: Ordered Quantity: 3.0 Unit: tab(s) Repeat number: 1 Indications: Chronic obstructive pulmonary disease with (acute) exacerbation;Blood Pressure Kit - XL Cuff (1 source)Start: 78-63-3088Mracq Pressure Kit - XL Cuff Blood Pressure Kit - XL Cuff, See Instructions, 1 EA, 0, Use at home daily, [facility]16, Supply, 170, cm, 10/02/19 13:41:00 EDT, Height/Length Measured, 156, kg, 10/02/19 13:41:00 EDT, Weight Measured Start Date: 10/02/19 Status: Ybmlvjj99 hr buPROPion hydrochloride 150 mg extended release oral tablet (3 sources)AminoketoneStart: 15-18-5824oxgb 1 tablet by mouth every twenty-four hoursbuPROPion 150 mg/24 hours XL Tab 150 mg = 1 tab(s), Oral, q24hr, # 30 tab(s), Refills(s) 0, Pharmacy: [facility] #16, 168, cm, 02/04/25 13:39:00 EDT, Height/Length Dosing, 155.1, kg, 02/04/25 13:39:00 EDT, Weight Dosing Start Date: 02/04/25 Status: Ordered Quantity: 30.0 Unit: tab(s) Repeat number: 1calcium chloride 0.0014 meq/ml / potassium chloride 0.004 meq/ml / sodium chloride 0.103 meq/ml / sodium lactate 0.028 meq/ml injectable solution (2 sources)Start: 03-17-2020 End: 97-60-6904jpvdxiyf ringers infusioncelecoxib 200 mg oral capsule (3 sources)Nonsteroidal Anti-inflammatory DrugStart: 33-31-4758kszh 1 capsule by mouth twice daily as needed for painCeleBREX 200 mg Cap 200 mg = 1 cap(s), Oral, BID, PRN as needed for pain, with food, # 60 cap(s), Refills(s) 0, Pharmacy: [facility] #[id number], 167, cm, 05/09/23 8:15:00 EST, Height/Length Dosing, 145.6, kg, 05/09/23 8:15:00 EST, Weight Dosing Start Date: 05/09/23 Status: Orderedcephalexin 500 mg oral capsule (4 sources)Cephalosporin AntibacterialStart: 12-29-2024 End: 35-89-2253wvqf 1 capsule by mouth four times dailycephalexin 500 mg Cap 500 mg = 1 cap(s), Oral, QID, X 8 day(s), # 32 cap(s), Refills(s) 0, Pharmacy: [facility] #16, 168, cm, 12/27/24 10:40:00 EDT, Height/Length Dosing, 165.6, kg, 12/27/24 10:40:00 EDT, Weight Dosing Start Date: 12/29/24 Stop Date: 01/06/25 Status: Ordered Quantity: 32.0Unit: cap(s) Repeat number: 1 Indications: Cellulitis of unspecified part of limb;cholecalciferol 0.125 mg oral capsule (7 sources)Vitamin DStart: 39-42-2633fwxt 1 capsule by mouth once daily at mealtimeD 5000 125 MCG (5000 UT) CAPS capsule take 1 capsule by mouth once daily with food 0 10/14/2022 Activedicyclomine hydrochloride 10 mg oral capsule (7 sources)AnticholinergicStart: 02-61-8695aqrp 2 capsules by mouth four times daily as needed for painBentyl 10 mg Cap 20 mg = 2 cap(s), Oral, QID, PRN Pain, # 21 cap(s), Refills(s) 0, Pharmacy: [facility] #[id number], 168, cm, 07/11/24 11:16:00 EST, Height/Length Dosing, 152.8, kg, 07/11/24 11:21:00 EST, Weight Dosing Start Date: 07/11/24 Status: OrderedDulaglutide (20 sources)GLP-1 Receptor AgonistStart: 93-62-8549Pqyhsopfzuj (Trulicity) 3 mg/0.5 mL pen injector Active MG SUBCUT April 03, 2025 12:00am Complies with drug therapyStart: 65-45-3456xwadbk 3 mg by subcutaneous injection every week Trulicity Pen 3 mg/0.5 mL subcutaneous solution See Instructions, inject 3 (THREE) mg under the skin EVERY week, # 2 mL, Refills(s) 3, Pharmacy: [facility] #16, 168, cm, 03/12/25 13:02:00EDT, Height/Length Dosing, 154.2, kg, 03/12/25 13:02:00 EDT, Weight Dosing Start Date: 04/01/25 Status: Ordered Quantity: 2.0 Unit: mL Repeat number: 1Start: 81-73-7107vxxfes 3 mg by subcutaneous injection every weekTrulicity Pen 3 mg/0.5 mL subcutaneous solution See Instructions, INJECT 3 (THREE) MG UNDER THE SKIN EVERY WEEK., # 2 mL, Refills(s) 0, Pharmacy: [facility] #16, 168, cm, 02/04/25 13:39:00 EDT, Height/Length Dosing, 155.1, kg, 02/04/25 13:39:00 EDT, Weight Dosing Start Date: 02/25/25 Status: Ordered Quantity: 2.0 Unit: mL Repeat number: 1Start: 45-67-7762omwjxn 3 mg by subcutaneous injection every weekTrulicity Pen 3 mg/0.5 mL subcutaneous solution See Instructions, ADMINISTER 3 MG UNDER THE SKIN EVERY WEEK, # 2 mL, Refills(s) 0, Pharmacy: [facility] #16, 168, cm, 01/29/25 8:19:00 EDT,Height/Length Dosing, 159, kg, 01/24/25 8:55:00 EDT, Weight Dosing Start Date: 01/29/25 Status: Ordered Quantity: 2.0 Unit: mL Repeat number: 1Start: 68-52-7324gsksts 3 mg by subcutaneous injection every week Trulicity Pen 3 mg/0.5 mL subcutaneous solution See Instructions, ADMINISTER 3 MG UNDER THE SKIN EVERY WEEK, # 2 mL, Refills(s) 0, Pharmacy: [facility] #[id number], 168, cm, 11/27/24 14:20:00 EDT, Height/Length Dosing, 159.8, kg, 11/27/24 14:20:00 EDT, Weight Dosing Start Date: 12/17/24 Status:Ordered Quantity: 2.0 Unit: mL Repeat number: 1Start: 83-68-0507pezoew 3 mg by subcutaneous injection every weekTrulicity Pen 3 mg/0.5 mL subcutaneous solution 3 mg, SubCutaneous, qWeek, # 2 mL, Refills(s) 2, Pharmacy: [facility] #[id number], 168, cm, 09/12/24 13:00:00 EDT, Height/Length Dosing, 154.1, kg, 09/12/24 13:00:00 EDT, Weight Dosing Start Date: 10/01/24 Status: Ordered Quantity: 2.0 Unit: mL Repeat number: 3 Indications: Type 2 diabetes mellitus with other specified complication;Start: 03-65-2186labebe 3 mg by subcutaneous injection every weekTrulicity Pen 3 mg/0.5 mL subcutaneous solution 3 mg, SubCutaneous, qWeek, # 4 EA, Refills(s) 2, Pharmacy: [facility] #[id number], 167, cm, 02/22/24 13:09:00 EDT, Height/Length Dosing, 137, kg, 02/22/24 13:09:00 EDT, Weight Dosing Start Date: 02/22/24 Status: OrderedStart: 01-17-2024 Trulicity Pen 1.5 mg/0.5 mL subcutaneous solution See Instructions, inject 1 AND 1/2 milligrams subcutaneously weekly, # 2 mL, Refills(s) 0, Pharmacy: [facility][id number], 167.6, cm, 12/23/23 10:59:00 EDT, Height/Length Dosing, 136, kg, 12/23/23 10:59:00 EDT, Weight Dosing Start Date: 01/17/24 Status: OrderedStart: 70-71-7825bvlvuq 1.5 mg by subcutaneous injection every weekTrulicity Pen 1.5 mg/0.5 mL subcutaneous solution 1.5 mg, SubCutaneous, qWeek, # 4 EA, Refills(s) 0, Pharmacy: [id number], 168, cm, 12/06/23 14:55:00 EDT, Height/Length Dosing, 139, kg, 12/05/2413:55:00 EDT, Weight Dosing Start Date: 12/22/23 Status: OrderedStart: 94-95-0125csgfcx 1.5 mg by subcutaneous injection every week Trulicity Pen 1.5 mg/0.5 mL subcutaneous solution 1.5 mg, SubCutaneous, qWeek, # 4 EA, Refills(s) 0, Pharmacy: [facility][id number], 168, cm, 10/11/23 14:32:00 EDT, Height/Length Dosing, 160.2, kg, 10/11/23 14:32:00 EDT, Weight Dosing Start Date: 10/11/23 Status: OrderedStart: 16-39-5392Uquinlcswtz 0.75 MG/0.5ML SOPN Inject 0.75 mg into the skin 0 09/13/2022 Activeempagliflozin 10 mg oral tablet (20 sources)Sodium-Glucose Cotransporter 2 InhibitorStart: 56-54-9651ayti 1 tablet by mouth once dailyEmpagliflozin (Jardiance) 10 mg tablet Active 10 MG PO Daily April 03, 2025 12:00am Complies with drug therapyStart: 30-98-1471mojk 1 tablet by mouth once dailyJardiance 10 mg oral tablet 10 mg, Oral, Daily, # 90 tab(s), Refills(s) 4, [id number], 168, cm, 09/12/24 13:00:00 EDT, Height/Length Dosing, 154.1, kg, 09/12/24 13:00:00 EDT, Weight Dosing Start Date: 10/26/24 Status: Ordered Quantity: 90.0 Unit: tab(s) Repeat number: 5FLUoxetine 20 mg oral capsule (20 sources)Serotonin Reuptake InhibitorStart: 35-29-9590vjhk 40 mg by mouth once dailyFluoxetine Active 40 MG PO Daily September 10, 2022 1:00amStart: 37-45-9441lync 2 capsules by mouth once dailyFLUoxetine 20 mg Cap 40 mg = 2 cap(s), Oral, Daily, # 180 cap(s), Refills(s) 4, Pharmacy: [facility] #16, 168, cm, 01/29/25 8:19:00 EDT, Height/Length Dosing, 159, kg, 01/24/25 8:55:00 EDT, Weight Dosing Start Date: 01/29/25 Status: Ordered Quantity: 180.0 Unit: cap(s) Repeat number: 5take 1 capsule by mouth once dailyFLUoxetine (PROZAC) 40 MG capsule Take 1 capsule by mouth nightly 0 Activefluticasone propionate 0.05 mg/actuat metered dose nasal spray (1 source)CorticosteroidStart: 37-75-8689Xysnxfc 0.05 mg/inh Gruver 2 spray(s), Nasal, Daily, 16 gram, Refill(s) 0, each nostril, [facility] #16, 168, cm, 04/09/25 11:43:00 EDT, Height/Length Dosing, 160.8, kg, 04/09/25 11:43:00 EDT, Weight Dosing Start Date: 04/09/25 Status: Ordered Quantity: 16.0 Unit: g Repeat number: 1fluticasone / salmeterol (20 sources)Corticosteroid, beta2-Adrenergic AgonistStart: 11-27-2024 End: 10-46-1351lxti 1 puff(s) by inhalation twice dailyAdvair Diskus 250 mcg-50 mcg inhalation powder 1 puff(s), Inhalation, BID for 30 day(s), 60 blister(s), Refill(s) 0, [facility] #[id number], 168, cm, 11/27/24 14:20:00 EDT, Height/Length Dosing,159.8, kg, 11/27/24 14:20:00 EDT, Weight Dosing Start Date: 11/27/24 Stop Date: 12/27/24 Status: Ordered Quantity: 60.0 Unit: blister(s) Repeat number: 1Start: 04-60-7446Efzrjruyyel-Salmeterol (ADVAIR DISKUS IN) See Instructions, Refill(s) 0 0 09/16/2022 ActiveStart: 16-18-7943Gtgdwf Diskus 100 mcg-50 mcg inhalation powder See Instructions, Refill(s) 0 Start Date: 09/16/22 Status: OrderedStart: 45-68-6802Meije: 83-19-4591Nqovrbuzinz Propion-Salmeterol (Advair Diskus) 100-50 mcg/dose blister with device Active 1 INH INHALATION Twice daily 60 September 14, 2022 12:00amfurosemide 40 mg oral tablet (20 sources)Loop DiureticStart: 02-38-1359hxbt 1 tablet by mouth twice daily furosemide 40 mg Tab 40 mg = 1 tab(s), Oral, BID, # 60 tab(s), Refills(s) 2, Pharmacy: [facility] #16, 168, cm, 01/01/25 13:49:00 EDT, Height/Length Dosing, 161.7, kg, 01/01/25 13:49:00 EDT, Weight Dosing Start Date: 01/01/25 Status: Ordered Quantity: 60.0 Unit: tab(s) Repeat number: 3 Ind ications: Unspecified diastolic (congestive) heart failure; Localized edema; Start: 99-01-5365klri 1 tablet by mouth twice dailyfurosemide 40 mg Tab 40 mg = 1 tab(s), Oral, BID, # 60 tab(s), Refills(s) 0, Pharmacy: [facility] #16, 168, cm, 12/27/24 10:40:00 EDT, Height/Length Dosing, 165.6, kg, 12/27/24 10:40:00 EDT, Weight Dosing Start Date: 12/29/24 Status: Ordered Quantity: 60.0 Unit: tab(s) Repeat number: 1 Indications: Localized edema; Acute on chronic diastolic (congestive) heart failure;Start: 42-86-8954srzm 1 tablet by mouth once dailyfurosemide 40 mg Tab 40 mg = 1 tab(s), Oral, Daily, # 90 tab(s), Refills(s) 1, Pharmacy: [facility] #[id number], 168, cm, 06/05/24 13:03:00 EST, Height/Length Dosing, 145.9, kg, 06/05/24 13:03:00 EST, Weight Dosing Start Date: 06/05/24 Status: Ordered Quantity: 90.0 Unit: tab(s) Repeat number: 2 Indications: Localized edema;Start: 74-32-6661Nzfqe 20 mg Tab 20 mg = 1 tab(s), Oral, As Directed, # 30 tab(s), Refills(s) 1, Pharmacy: [facility] #[id number], 167, cm, 09/29/22 11:37:00 EDT, Height/Length Dosing, 149.2, kg, 09/29/22 11:37:00 EDT, Weight Dosing Start Date: 09/29/22 Status: OrderedStart: 80-74-3825khfx 1 tablet by mouth once dailyfurosemide 40 mg Tab 40 mg = 1 tab(s), Oral, Daily, # 90 tab(s), Refills(s) 1, Pharmacy: [facility][id number], 167.6, cm, 12/23/23 10:59:00 EDT, Height/Length Dosing, 136, kg, 12/23/23 10:59:00 EDT, Weight Dosing Start Date: 01/31/24 Status: OrderedStart: 87-59-7105fqgc 2 tablets by mouth once daily Lasix 20 mg Tab 40 mg = 2 tab(s), Oral, Daily, Take with potassium supplment., # 180 tab(s), Refills(s) 5, Pharmacy: [id number], 163, cm, 08/20/22 14:05:00 EST, Height/Length Dosing, 155, kg, 08/20/22 14:05:00 EST, Weight Dosing Start Date: 08/20/22 Status: OrderedStart: 07-27-2021 End: 58-46-3676fkph 1 tablet by mouth once dailyFurosemide 20 mg Tablet Discontinued 20 MG PO Daily September 10, 2022 1:00am September 14, 2022 11:24am gabapentin 800 mg oral tablet (20 sources)Anti-epileptic AgentStart: 69-01-0376rijb 1 tablet by mouth three times dailyGabapentin 800 mg tablet Active 800 MG PO Three times daily April 03, 2025 12:00am Complies withdrug therapyStart: 96-32-8056emfxnysame 300 mg Cap 300 mg = 1 cap(s), TID, Refills(s) 0 Start Date: 02/22/24 Status: Ordered Repeat number: 1glipiZIDE er 2.5 mg 24 hr extended release oral tablet (20 sources)SulfonylureaStart: 75-71-9141buaz 1 tablet by mouth once daily glipiZIDE 2.5 mg ER Tab 2.5 mg = 1 tab(s), Oral, Daily, # 90 tab(s), Refills(s) 3, Pharmacy: [facility] #16, 168, cm, 04/09/25 11:43:00 EDT, Height/Length Dosing, 160.8, kg, 04/09/25 11:43:00 EDT, Weight Dosing Start Date: 04/09/25 Status: Ordered Quantity: 90.0 Unit: tab(s) Repeat number: 4Start: 27-96-7266bvdi 1 tablet by mouth once dailyglipiZIDE 2.5 mg ER Tab 2.5 mg = 1 tab(s), Oral, Daily, # 90 tab(s), Refills(s) 1, Pharmacy: [facility] #[id number], 168, cm, 11/27/24 14:20:00 EDT, Height/Length Dosing, 159.8, kg, 11/27/24 14:20:00 EDT, Weight Dosing Start Date: 11/27/24 Status: Ordered Quantity: 90.0 Unit: tab(s) Repeat number: 2Start: 19-72-3161tlyr 1 tablet by mouth once dailyglipiZIDE 2.5 MG tablet XL Take 1 tablet by mouth daily. 12/20/2023 ActiveStart: 26-52-5361tthb 1 tablet by mouth once dailyglipiZIDE 2.5 mg ER Tab 2.5 mg = 1 tab(s), Oral, Daily, # 90 tab(s), Refills(s) 1, [facility]: [facility], 163, cm, 12/30/21 11:09:00 EDT, Height/Length Dosing, 154, kg, 12/30/21 11:09:00 EDT, Weight Dosing Start Date: 12/30/21 Status: OrderedGlucometer (20 sources)Start: 83-81-1624Lfaspzfwkx Glucometer, See Instructions, 1 EA, 0, Glucometer to test BS TID and PRN dx E11.9, [facility], Supply, 170, cm, 05/27/21 8:31:00 EST, Height/Length Dosing, 157.8, kg, 05/27/21 8:31:00 EST, Weight Dosing Start Date: 06/03/21 Status: Ordered Quantity: 1.0 Unit: EA Repeat number:1Start: 77-60-4499Syknpuaojg Glucometer, See Instructions, 1 EA, 0, Glucometer to test BS TID and PRN dx E11.9, [facility], Supply, 170, cm, 05/27/21 8:31:00 EST, Height/Length Dosing, 157.8, kg, 05/27/21 8:31:00 EST, Weight Dosing Start Date: 06/03/21 Status: OrderedGlucose (1 source)Start: 25-64-3405Heqvchf Kit Glucose Kit, See Instructions, 1 EA, 0, Glucose meter. Include autolet, matching test strips, lancets, & alcohol wipes, #300 or as allowed by insurance; Test TID and PRN. DX: E11.9, [facility] , Supply, 170, cm, 05/27/21 8:31:00 EST, Height... Start Date: 06/03/21 Status: OrderedhydroCHLOROthiazide 50 mg oral tablet (20 sources)Thiazide DiureticStart: 12-02-2432rvbo 1 tablet by mouth once daily hydrochlorothiazide 50 mg Tab 50 mg = 1 tab(s), Oral, Daily, # 90 tab(s), Refills(s) 1, [facility]: [facility][id number], 163, cm, 12/30/21 11:09:00 EDT, Height/Length Dosing, 154, kg, 12/30/21 11:09:00 EDT, Weight Dosing Start Date: 04/13/22 Status: OrderedStart: 29-59-3049smok 1 tablet by mouth once daily hydrochlorothiazide 50 mg Tab 50 mg = 1 tab(s), Oral, Daily, # 30 tab(s), Refills(s) 5, [facility]acy: [facility] [address], 170, cm, 07/28/21 10:34:00 EST, Height/Length Dosing, 152, kg, 07/28/21 10:34:00 EST, Weight Dosing Start Date: 08/03/21 Status: Orderedtake 2 tablets by mouth once dailyhydroCHLOROthiazide (HYDRODIURIL) 25 MG tablet Take 2 tablets by mouth daily 0 Activetake 1 tablet by mouth once dailyhydroCHLOROthiazide (HYDRODIURIL) 25 MG tablet Take 25 mg by mouth daily 0 Activeicosapent ethyl 1000 mg oral capsule (1 source)Start: 01-77-7880Vyvnjkb 1 g oral capsule 2 gram = 2 cap(s), Oral, BID, # 120 cap(s), Refills(s) 5, Pharmacy: [facility], 170, cm, 05/27/21 8:31:00 EST, Height/Length Dosing, 157.8, kg, 05/27/21 8:31:00 EST, Weight Dosing Start Date: 05/29/21 Status: Orderedloratadine 10 mg oral tablet (20 sources)Start: 92-00-1164tekl 1 tablet by mouth once daily as needed loratadine 10 mg Tab 10 mg = 1 tab(s), Oral, Daily, PRN as needed for allergy symptoms, # 90 tab(s), Refills(s) 3, [id number], 163, cm, 12/30/21 11:09:00 EDT, Height/Length Dosing, 154, kg, 12/30/21 11:09:00 EDT, Weight Dosing Start Date: 04/13/22 Status: Orderedlosartan potassium 50 mg oral tablet (18 sources)Angiotensin 2 Receptor BlockerStart: 91-97-2215ioun 1 tablet by mouth once dailymeloxicam (7 sources)Nonsteroidal Anti-inflammatory DrugMELOXICAM PO Meloxicam 0 Active metFORMIN hydrochloride 500 mg oral tablet (18 sources)BiguanideStart: 02-47-8611sdlu 1 tablet by mouth twice daily at mealtimemetformin 500 mg oral tablet 500 mg = 1 tab(s), Oral, BID, with meals, # 60 tab(s), Refills(s) 2, [facility], 170, cm, 07/28/21 10:34:00 EST, Height/Length Dosing, 152, kg, 07/28/21 10:34:00 EST, Weight Dosing Start Date: 08/24/21 Status: OrderedmethylPREDNISolone 4 mg oral tablet (1 source)CorticosteroidStart: 04-09-2025 End: 50-70-3479Ldztxr 4 mg Tab = 1 packet(s), Oral, As Directed, as directed on package labeling, X 6 day(s), # 21tab(s), Refills(s) 0, Pharmacy: [facility], 168, cm, 04/09/25 11:43:00 EDT, Height/Length Dosing, 160.8, kg, 04/09/25 11:43:00 EDT, Weight Dosing Start Date: 04/09/25 Stop Date: 04/15/25 Status: Ordered Quantity: 21.0 Unit: tab(s) Repeat number: 1montelukast 10 mg oral tablet (20 sources)Leukotriene Receptor AntagonistStart: 59-88-1923dxxn 1 tablet by mouth once daily in the eveningSingulair 10 mg Tab 10 mg = 1 tab(s), Oral, qPM, # 90 tab(s), Refills(s) 2, Pharmacy: [facility], 168, cm, 04/09/25 11:43:00 EDT, Height/Length Dosing, 160.8, kg, 04/09/25 11:43:00 EDT, Weight Dosing Start Date: 04/09/25 Status: Ordered Quantity: 90.0 Unit: tab(s) Repeat number: 3Start: 01-13-9617eoqg 1 tablet by mouth once daily in the eveningSingulair 10 mg Tab 10 mg = 1 tab(s), Oral, qPM, # 30 tab(s), Refills(s) 2, Pharmacy: [address], 170, cm, 10/16/19 9:09:00 EDT, Height/Length Measured, 154.3, kg, 10/16/19 9:09:00 EDT, Weight Measured Start Date: 10/16/19 Status: Meacywk10 hr nicotine 0.875 mg/hr transdermal system (9 sources)Cholinergic Nicotinic AgonistStart: 01-02-2025 End: 63-72-6553oyqgyavk 21 mg/24 hr Transderm ER Film 1 patch(es), Topical, q24hr for 21 day(s), 21 patch(es), Refill(s) 0, wear only one patch at a time, for 24 hours only, [facility], 168, cm, 01/02/25 13:43:00 EDT, Height/Length Dosing, 159, kg, 01/02/25 13:43:00 EDT, Weight Dosing Start Date: 01/02/25 Stop Date: 01/23/25 Status: Ordered Quantity: 21.0 Unit: patch(es) Repeat number: 1Start: 09-22-2022 End: 63-41-3162tnkyfrcs 21 mg/24 hr Transderm ER Film 1 patch(es), Topical, Daily for 14 day(s), 14 EA, Refill(s) 0, [facility] #[id number], 167, cm, 09/22/22 8:24:00 EDT, Height/Length Dosing, 157.4, kg, 09/22/22 8:24:00EDT, Weight Dosing Start Date: 09/22/22 Stop Date: 10/06/22 Status: Orderednystatin 100 unt/mg topical powder (3 sources)Polyene AntifungalStart: 08-53-7986ysvtzyui Top 100,000 units/g Pwdr 1 beto, Topical, BID, 15 gram, Refill(s) 1, [facility], 168, cm, 01/02/25 13:43:00 EDT, Height/Length Dosing, [...] release oral tablet (20 sources)Proton Pump InhibitorStart: 77-34-8325abmn 1 tablet by mouth once dailyPantoprazole [address] Tab 40 mg = 1 tab(s), Oral, Daily, # 90 tab(s), Refills(s) 4, Pharmacy: [facility], 168, cm, 01/02/25 13:43:00 EDT, Height/Length Dosing, 159, kg, 01/02/25 13:43:00 EDT, Weight Dosing Start Date: 01/15/25 Status: Ordered Quantity: 90.0 Unit: tab(s) Repeat number: 5Start: 48-44-7434hulg 1 tablet by mouth once dailyPantoprazole [address] Tab 40 mg = 1 tab(s), Oral, Daily, # 90 tab(s), Refills(s) 3, [facility]: [facility] #[id number], 167, cm, 02/22/24 13:09:00 EDT, Height/Length Dosing, 137, kg, 02/22/24 13:09:00 EDT, Weight Dosing Start Date: 05/07/24 Status: Ordered Quantity: 90.0 Unit: tab(s) Repeat number: 4rosuvastatin calcium 40 mg oral tablet (20 sources)HMG-CoA Reductase InhibitorStart: 04-69-2124mflj 1 tablet by mouth once dailyCrestor 40 mg Tab 40 mg = 1 tab(s), Oral, Daily, # 90 tab(s), Refills(s) 3, Pharmacy: [facility], 168, cm, 04/09/25 11:43:00 EDT, Height/Length Dosing, 160.8, kg, 04/09/25 11:43:00 EDT, Weight Dosing Start Date: 04/09/25 Status: Ordered Quantity: 90.0 Unit: tab(s) Repeat number: 4 Ind ications: Mixed hyperlipidemia;Start: 60-56-7543qosb 1 tablet by mouth once dailyCrestor 40 mg Tab 40 mg = 1 tab(s), Oral, Daily, # 90 tab(s), Refills(s) 3, Pharmacy: [facility] #[id number], 168, cm, 11/27/24 14:20:00 EDT, Height/Length Dosing, 159.8, kg, 11/27/24 14:20:00 EDT, Weight Dosing Start Date: 11/27/24 Status: Ordered Quantity: 90.0 Unit: tab(s) Repeat number: 4 In dications: Mixed hyperlipidemia;Start: 58-84-7822veqi 1 tablet by mouth once dailyCrestor 40 MG tablet Take 1 tablet by mouth daily. 06/05/2024 ActiveStart: 02-38-1633sesz 1 tablet by mouth once dailyCrestor 40 mg Tab 40 mg = 1 tab(s), Oral, Daily, # 90 tab(s), Refills(s) 3, [id number], 167, cm, 05/09/23 8:15:00 EST, Height/Length Dosing, 145.6, kg, 05/09/23 8:15:00 EST, Weight Dosing Start Date: 06/28/23 Status: OrderedStart: 55-65-5590bxsd 1 tablet by mouth once dailyCrestor 40 mg Tab 40 mg = 1 tab(s), Oral, Daily, # 30 tab(s), Refills(s) 5, [facility]: [facility], 163, cm, 12/30/21 11:09:00 EDT, Height/Length Dosing, 154, kg, 12/30/21 11:09:00 EDT, Weight Dosing Start Date: 12/30/21 Status: Orderedsacubitril 24 mg / valsartan 26 mg oral tablet (18 sources)Angiotensin 2 Receptor BlockerStart: 09-29-2022 End: 21-45-0628cxyc 1 tablet by mouth twice dailyENTRESTO 24-26 MG per tablet take 1 tablet by mouth twice a day (STOP LOSARTAN 50MG) 0 11/30/2022 Active0.25 mg, 0.5 mg dose 1.5 ml semaglutide 1.34 mg/ml pen injector (9 sources)Start: 89-94-1347Vxjnfhxekvv,0.25 or 0.5MG/DOS, 2 MG/1.5ML SOPN Inject 0.25 mg into the skin 0 09/06/2022 Active3 ml sodium chloride 9 mg/ml injection (2 sources)Start: 28-09-4760hqribr chloride flush 0.9 % injection 10 mLStart: 39-93-5114vwgiyp chloride flush 0.9 % injection 10 mLspironolactone 25 mg oral tablet (20 sources)Aldosterone AntagonistStart: 84-80-9604apei 1 tablet by mouth once dailyspironolactone 25 mg Tab 25 mg = 1 tab(s), Oral, Daily, # 90 tab(s), Refills(s) 4, Pharmacy: [facility]16, 168, cm, 01/02/25 13:43:00 EDT, Height/Length Dosing, 159, kg, 01/02/25 13:43:00 EDT, Weight Dosing Start Date: 01/15/25 Status: Ordered Quantity: 90.0 Unit: tab(s) Repeat number:5 Indications: Essential (primary) hypertension;Start: 96-66-6602kxvo 1 tablet by mouth once dailyspironolactone 25 mg Tab 25 mg = 1 tab(s), Oral, Daily, # 90 tab(s), Refills(s) 1, Pharmacy: [facility] #[id number], 168, cm, 06/05/24 13:03:00 EST, Height/Length Dosing, 145.9, kg, 06/05/24 13:03:00 EST, Weight Dosing Start Date: 06/05/24 Status: Ordered Quantity: 90.0 Unit: tab(s) Repeat number: 2 Indications: Essential (primary) hypertension;Start: 12-14-2022 End: 80-59-5138pwky 1 tablet by mouth once dailyspironolactone 25 mg Tab 25 mg = 1 tab(s), Oral, Daily, X 90 day(s), # 90 tab(s), Refills(s) 1, [facility]acy: [facility] #[id number], 168, cm, 10/11/23 14:32:00 EDT, Height/Length Dosing, 160.2, kg, 10/11/23 14:32:00 EDT, Weight Dosing Start Date: 10/11/23 Stop Date: 04/08/24 Status: OrderedStart: 40-78-8057eepz 1 tablet by mouth twice dailyspironolactone 25 mg Tab 25 mg = 1 tab(s), Oral, BID, # 60 tab(s), Refills(s) 4, [facility]: [facility][id number], 163, cm, 09/06/22 11:28:00 EST, Height/Length Dosing, 154, kg, 09/06/22 11:28:00 EST, Weight Dosing Start Date: 09/20/22 Status: OrderedStart: 45-96-3100yfmy 1 tablet by mouth twice dailyspironolactone 25 mg Tab 25 mg = 1 tab(s), Oral, BID, # 60 tab(s), Refills(s) 0, [facility]: [id number], 163, cm, 08/20/22 14:05:00 EST, Height/Length Dosing, 155, kg, 08/20/22 14:05:00 EST, Weight Dosing Start Date: 08/23/22 Status: OrderedSymbicort 160/4.5 inhalation aerosol with adapter (5 sources)Start: 36-71-1623Cfuvyqbgw 160/4.5 inhalation aerosol with adapter 2 puff(s), Inhalation, BID, 1 EA, Refill(s) 5, rinse mouth and throat after use, [facility][id number], 163, cm, 12/30/21 11:09:00 EDT, Height/Length Dosing, 154, kg, 12/30/21 11:09:00 EDT, Weight Dosing Start Date: 07/23/22 Status: OrderedStart: 23-40-3925onec 2 puff(s) by inhalation twice dailySymbicort 160/4.5 inhalation aerosol with adapter 2 puff(s), Inhalation, BID, 1 EA, Refill(s) 5, rinse mouth and throat after use, [facility], 170, cm, 07/28/21 10:34:00 EST, Height/Length Dosing, 152, kg, 07/28/21 10:34:00 EST, Weight Dosing Start Date: 10/26/21 Status: Xskjizm86 actuat tiotropium 0.56181 mg/actuat inhalation spray (20 sources)AnticholinergicStart: 54-91-1242idig 2 puff(s) by inhalation once dailySpiriva Respimat [...] oral tablet (20 sources)Central alpha-2 Adrenergic AgonistStart: 85-71-0567gfvz 1 tablet by mouth every eight hours as needed for muscle spasmstiZANidine 4 mg Tab 4 mg = 1 tab(s), Oral, q8hr, PRN Spasm, # 30 tab(s), Refills(s) 0, Pharmacy: [facility] #[id number], 167, cm, 05/09/23 8:15:00 EST, Height/Length Dosing, 145.6, kg, 05/09/23 8:15:00 EST,Weight Dosing Start Date: 05/09/23 Status: OrderedStart: 04-26-2023 take 1 tablet by mouth every eight hours as needed for muscle spasmstiZANidine 4 mg Tab 4 mg = 1 tab(s), Oral, q8hr, PRN Spasm, # 20 tab(s), Refills(s) 0, [facility]: [id number], 167, cm, 04/26/23 11:10:00 EDT, Height/Length Dosing, 141.8, kg, 04/26/23 11:10:00 EDT, Weight Dosing Start Date: 04/26/23 Status: OrderedtraMADol hydrochloride 50 mg oral tablet (4 sources)Opioid AgonistStart: 82-80-1926qoeb 1 tablet by mouth every six hours as needed for paintraMADOL 50 mg Tab 50 mg = 1 tab(s), Oral, q6hr, PRN for pain, # 28 tab(s), Refills(s) 0, [facility] #[id number], 167.6, cm, 12/23/23 10:59:00 EDT, Height/Length Dosing, 136, kg, 12/23/23 10:59:00EDT, Weight Dosing Start Date: 01/09/24 Status: OrderedStart: 71-09-9975yukt 1 tablet by mouth every six hours as needed for paintraMADOL 50 mg Tab 50 mg = 1 tab(s), Oral, q6hr, PRN for pain, # 28 tab(s), Refills(s) 0, [facility] #[id number], 168, cm, 11/25/23 14:36:00 EDT, Height/Length Dosing, 141.8, kg, 11/25/23 14:36:00EDT, Weight Dosing Start Date: 11/25/23 Status: OrderedtraZODone hydrochloride 50 mg oral tablet (20 sources)Serotonin Reuptake InhibitorStart: 08-68-5228ljif 1 tablet by mouth once daily at bedtimetraZODONE 50 mg Tab 50 mg = 1 tab(s), Oral, Once a day (at bedtime), # 30 tab(s), Refills(s) 0, Pharmacy: [facility] #[id number], 168, cm, 10/11/23 14:32:00 EDT, Height/Length Dosing, 160.2, kg, 10/11/23 14:32:00 EDT, Weight Dosing Start Date: 10/11/23 Status: OrderedStart: 59-18-4041sunh 1 tablet by mouth once daily at bedtimetraZODONE 50 mg Tab 50 mg = 1 tab(s), Oral, Once a day (at bedtime), # 30 tab(s), Refills(s) 0, Pharmacy: [facility] #[id number], 167, cm, 08/10/23 14:24:00 EST, Height/Length Dosing, 151.4, kg, 08/10/23 14:24:00 EST, Weight Dosing Start Date: 08/10/23 Status: OrderedStart: 01-42-0065kzpw 2 tablets by mouth once daily at bedtime as neededtraZODONE 150 mg Tab 300 mg = 2 tab(s), Oral, Once a day (at bedtime), PRN Insomnia, # 180 tab(s), Refills(s) 1, Pharmacy: [facility], 170, cm, 10/13/20 9:06:00 EDT, Height/Length Dosing,153.3, [...] ActiveTrulicity 3 MG/0.5ML Solution Auto-injector (1 source)Start: 73-08-5339ybtzwd 3 mg by subcutaneous injection every week Trulicity 3 MG/0.5ML Solution Auto-injector Inject 3 mg under the skin once a week. 10/26/2024 Activevarenicline 1 mg oral tablet (16 sources)Partial Cholinergic Nicotinic AgonistStart: 88-44-3500qnzh 1 tablet by mouth twice daily after mealtimevarenicline 1 mg oral tablet 1 mg = 1 tab(s), Oral, BID, after meals, # 60 tab(s), Refills(s) 4, Pharmacy: [facility] #[id number], 167.5, cm, 10/18/22 13:30:00 EDT, Height/Length Dosing, [...] varenicline, # 11 tab(s), Refills(s) 0, Pharmacy: [facility] #[id number], 167.5, cm, 10/18/22 13:30:00 EDT, Height/Length Dosing, 147, kg, 10/18/22 13:30:00 EDT, Weight Dosing Start Date: 10/18/22 Status: Ordered Completed/Discontinued Medications MedicationDrug Class(es)DatesSig (Normalized)Sig (Original)Bariatric transfer bench shower chair w/back rest (3 sources)Start: 64-52-4853Ajmdwacbb transfer bench shower chair w/back rest Bariatric [...] inhaler (20 sources)Corticosteroid, beta2-Adrenergic AgonistStart: 09-11-2019 End: 01-10-3226trwc 2 puff(s) by inhalation twice dailybudesonide-formoterol (SYMBICORT) 80-4.5 MCG/ACT AERO Inhale 2 puffs into the lungs 2 times daily 1 Inhaler 3 09/11/2019 03/17/2020 Discontinued (LIST CLEANUP)take 2 puff(s) by inhalation twice dailybudesonide-formoterol (SYMBICORT) 160-4.5 MCG/ACT AERO Inhale 2 puffs into the lungs 2 times daily 0 Activefluconazole 150 mg oral tablet (3 sources)Azole AntifungalStart: 81-04-7152Hzatwihc 150 mg Tab 150 mg = 1 tab(s), Oral, Once, one tablet now and repeat in 72 hours, # 2 tab(s), Refills(s) 0, Pharmacy: [facility]16, 168, cm, 01/02/25 13:43:00 EDT, Height/LengthDosing, 159, kg, 01/02/25 13:43:00 EDT, Weight Dosing Start Date: 01/02/25 Status: Ordered Quantity: 2.0 Unit: tab(s) Repeat number: 1iohexol (OMNIPAQUE 240) injection 20 mL (1 source)Start: 02-07-2020 End: 21-07-5073zvmgwsu (OMNIPAQUE 240) injection 20 mLiopamidol (ISOVUE-370) 76 % injection 75 mL (1 source)Start: 02-07-2020 End: 41-18-9326oiwtzaasf (ISOVUE-370) 76 % injection 75 mLipratropium bromide 0.2 mg/ml inhalation solution (1 source)AnticholinergicStart: 10-14-2022 End: 45-36-9892tvoqwanglff (ATROVENT) 0.02 % nebulizer solution 0.5 mgNebulizer Machine (20 sources)Start: 48-71-5474Tacyzbehm Machine Nebulizer Machine, See Instructions, 1 EA, 0, Nebulizer Machine, [facility] #[id number],Supply, 168, cm, 10/11/23 14:32:00 EDT, Height/Length Dosing, 160.2, kg, 10/11/23 14:32:00 EDT, Weight Dosing Start Date: 10/11/23 Status: Ordered Quantity: 1.0 Unit: EA Repeat number: 1 Indications: Moderate persistent asthma, uncomplicated;Start: 37-96-8423Tlrtstdkh Machine Nebulizer Machine, See Instructions, 1 EA, 0, Nebulizer Machine, [facility] #[id number],Supply, 168, cm, 10/11/23 14:32:00 EDT, Height/Length Dosing, 160.2, kg, 10/11/23 14:32:00 EDT, Weight Dosing Start Date: 10/11/23 Status: OrderedStart: 84-79-9973Uepnihevq Machine Nebulizer Machine, See Instructions, 1 EA, 0, Nebulizer Machine, [facility], Supply, 170, cm, 10/02/19 13:41:00 EDT, Height/Length Measured, 156, kg, 10/02/19 13:41:00 EDT, Weight Measured Start Date: 10/02/19 Status: Ordered Nebulizer Tubing and Mouthpiece Kit (20 sources)Start: 31-66-3736Hjzdsekyz Tubing and Mouthpiece Kit Nebulizer Tubing and Mouthpiece Kit, See Instructions, 1 kit(s), 0, Nebulizer Tubing and Mouthpiece Kit, [facility] #[id number], Supply, 168, cm, 10/11/23 14:32:00 EDT, He ight/Length Dosing, 160.2, kg, 10/11/23 14:32:00 EDT, Weight Dosing Start Date: 10/11/23 Status: Ordered Quantity: 1.0 Unit: kit(s) Repeat number: 1 Indications: Moderate persistent asthma, uncomplicated;Start: 70-92-5546Yqbbdcwzw Tubing and Mouthpiece Kit Nebulizer Tubing and Mouthpiece Kit, See Instructions, 1 kit(s), 0, Nebulizer Tubing and Mouthpiece Kit, [facility] #[id number], Supply, 168, cm, 10/11/23 14:32:00 EDT, Height/Length Dosing, 160.2, kg, 10/11/23 14:32:00 EDT, Weight Dosing Start Date: 10/11/23 Status: OrderedStart: 30-92-6809Pxfypnfdz Tubing and Mouthpiece Kit Nebulizer Tubing and Mouthpiece Kit, See Instructions, 1 kit(s), 0, Nebulizer Tubing and Mouthpiece Kit, [facility] #16, Supply, 170, cm, 10/02/19 13:41:00 EDT, Height/Length Measured, 156, kg, 10/02/19 13:41:00 EDT, Weight Measured Start Date: 10/02/19 Status: Ordered polyethylene glycol 3350 138200 mg / potassium chloride 2970 mg / sodium bicarbonate 6740 mg / sodium chloride 5860 mg / sodium sulfate 35466 mg powder for oral solution (1 source)Osmotic LaxativeStart: 03-17-2020 End: 77-74-1893otvwrsguxanf glycol (GoLYTELY) solution 4,000 mLStart: 03-17-2020 End: 68-56-2631sfwpymmxqcst glycol (GoLYTELY) solution 4,000 mLpotassium chloride 20 meq extended release oral tablet (20 sources)Start: 39-05-6969uaii 1 tablet by mouth once dailypotassium chloride 20 mEq ER Tab 20 mEq = 1 tab(s), Oral, Daily, Take with Lasix, # 90 tab(s), Refills(s) 4, Pharmacy: [facility] #16, 168, cm, 01/29/25 8:19:00 EDT, Height/Length Dosing,159, kg, 01/24/25 8:55:00 EDT, Weight Dosing Start Date: 01/29/25 Status: Ordered Quantity: 90.0 Unit: tab(s) Repeat number: 5 Indications: Localized edema;Start: 96-05-5064qktwiwgqp chloride (KLOR-CON M) 20 MEQ extended release tabletStart: 06-15-2021 End: 08-44-0993zcce 1 tablet by mouth once dailypotassium chloride 20 mEq ER Tab 20 mEq = 1 tab(s), Oral, Daily, Take with Lasix, # 90 tab(s), Refills(s) 4, Pharmacy: [facility] #16, 168, cm, 01/29/25 8:19:00 EDT, Height/Length Dosing,159, kg, 01/24/25 8:55:00 EDT, Weight Dosing Start Date: 01/29/25 Status: Ordered Quantity: 90.0 Unit: tab(s) Repeat number: 5 Indications: Localized edema;predniSONE 10 mg oral tablet (17 sources)Start: 55-03-7480lsggzaEYCR 10 mg Tab 10 mg = 1 tab(s), Oral, As Directed, 4 tabs for 2 days,3 tabs for 2 days,2 tabs for 2 days,1 tab for 2 days, # 20 tab(s), Refills(s) 0, Pharmacy: [facility] #16, 168,cm, 12/27/24 10:40:00 EDT, Height/Length Dosing, 165.6, kg, 12/27/24 10:40:00 EDT, Weight Dosing Start Date: 12/29/24 Status: Ordered Quantity: 20.0 Unit: tab(s) Repeat number: 1 Indications: Chronic obstructive pulmonary disease with (acute) exacerbation;Start: 41-94-3650islvmfQISH 20 mg Tab 20 mg = 1 tab(s), Oral, As Directed, Take three tabs by mouth for one day, then two tabs for one day, then one tab for one day, # 6 tab(s), Refills(s) 0, Pharmacy: [facility] #[id number], 167, cm, 04/26/23 11:10:00 EDT, Height/Length Dosing, [...] Refills(s) 0 Start Date: 09/16/22 Status: OrderedStart: 69-64-5525Yraczhjj HFA 90 mcg/inh Aerosol (3 sources)Start: 78-31-9908dtzu 1 dose by inhalation four times dailyVentolin HFA 90 mcg/inh Aerosol 2 puff(s), Inhalation, QID Cough, 1 EA, Refill(s) 1, [facility] #[id number], 163, cm, 12/30/21 11:09:00 EDT, Height/Length Dosing, 154, kg, 12/30/21 11:09:00 EDT, Weight Dosing Start Date: 04/13/22 Status: OrderedStart: 94-33-7374daeu 2 puff(s) by inhalation four times dailyVentolin HFA 90 mcg/inh Aerosol 2 puff(s), Inhalation, QID Cough, 1 EA, Refill(s) 0, [facility], 170, cm, 09/22/20 10:15:00 EDT, Height/Length Dosing, 155.5, kg, 09/22/20 10:15:00 EDT, Weight Dosing Start Date: 09/23/20 Status: OrderedVentolin HFA 90 mcg/inh Aerosol-Adpt (20 sources)Start: 91-22-7918riox 1 dose by inhalation every six hoursVentolin HFA 90 mcg/inh Aerosol-Adpt 2 puff(s), Inhalation, q6hr for wheezing, 1 EA, Refill(s) 1, [facility] #[id number], 167, cm, 09/29/22 11:37:00 EDT, Height/Length Dosing, 149.2, kg, 09/29/22 11:37:00 EDT, Weight Dosing Start Date: 10/01/22 Status: OrderedStart: 69-81-0055lgwq 2 puff(s) by inhalation every six hours for wheezingVentolin HFA 90 mcg/inh Aerosol-Adpt 2 puff(s), Inhalation, q6hr for wheezing, 18 gram, Refill(s) 1, [facility] #[id number], 163, cm, 12/30/21 11:09:00 EDT, Height/Length Dosing, 154, kg, 12/30/21 11:09:00 EDT, Weight Dosing Start Date: 07/23/22 Status: OrderedVitamin D3 5000 intl units oral capsule (20 sources)Start: 58-71-4817soqs 1 capsule by mouth once daily at mealtime Vitamin D3 5000 intl units oral capsule 5,000 International_Unit = 1 cap(s), Oral, Daily, with food, # 100 cap(s), Refills(s) 1, Pharmacy: [facility] #[id number], 170, cm, 10/13/22 9:06:00 EDT, Height/Length Dosing, 149.2, kg, 09/29/22 11:37:00 EDT, Weight Dosing Start Date: 10/14/22 Status: Ordered Problems Active Problems Problem ClassificationProblemDateDocumented DateEpisodic/ChronicAcute bronchitis (2 sources)Acute bronchitis; Translations: [Acute bronchitis, unspecified]Onset: 71-18-4121IikmonljUjojuxljvgppln/social admission (1 source)Patient encounter status; Translations: [Persons encountering health services in other specified circumstances]Onset: 17-66-4148WnpyhwbjOqljtbx- related disorders (20 sources)Alcohol abuse; Translations: [Alcohol abuse, uncomplicated]Onset: 08-09-4796WxtkxtpJoyrma (20 sources)Uncomplicated moderate persistent asthma; Translations: [Moderate persistent asthma, uncomplicated]Onset: 05-97-9768EmqjztwLgrgqi neoplasm of uterus (20 sources)Uterine sfuxgjbjy30-51-4540LsmdhbpxZolpusa obstructive pulmonary disease and bronchiectasis (20 sources)Acute exacerbation of chronic obstructive airways disease; Translations: [Chronic obstructive pulmonary disease with (acute) exacerbation] Onset: [id number] on above:Problem List clean-up per request of Phys. EHR CmteCongestive heart failure; nonhypertensive (20 sources)Right ventricular failure; Translations: [Right heart failure, unspecified]Onset: 51-06-8660CglhtmqMqypwmm on above:Problem List clean-up per request of Phys. EHR CmteDiabetes mellitus with complications (20 sources)Complication due to diabetes mellitus; Translations: [Type 2 diabetes mellitus with other specifiedcomplication]Onset: 43-49-0129Sryfbxs Diabetes mellitus without complication (14 sources)Type 2 diabetes mellitus; Translations: [Type 2 diabetes mellitus without complications]Onset: [id number] mellitus without complication (1 source)Hyperglycemia; Translations: [Elevated blood sugar]EpisodicDisorders of lipid metabolism (20 sources)Hyperlipidemia; Translations: [Mixed hyperlipidemia]Onset: 913130-39-7599WthodvgKjvphefeni disorders (20 sources)Gastroesophageal reflux disease; Translations: [Gastroesophageal reflux disease without esophagitis]Onset: 118373-75-3739SrpkxdsEuunrhuvk hypertension (20 sources)Essential hypertension; Translations: [Essential (primary) hypertension]Onset: 41-10-2693FucgvusZsqqh and electrolyte disorders (20 sources)Hypokalemia; Translations: [Hypokalemia]Onset: 15-36-9560Hpwpocxz Gastrointestinal hemorrhage (1 source)Kpeqvxlxrtif34-35-1589DwzwljusShgliuxhytmgz and screening for infectious disease (2 sources)Vaccination given; Translations: [Encounter for immunization]Onset: 57-60-0461EmjkndllClxggjq and fatigue (1 source)Fatigue; Translations: [Other fatigue]EpisodicMiscellaneous mental health disorders (20 sources)Chronic insomnia; Translations: [Psychophysiologic insomnia]Onset: 488485-93-6572FehttncUshc disorders (20 sources)Severe major depression, single episode, without psychotic features; Translations: [Major depressive disorder, single episode, severe without psychotic features]Onset: 96-55-5223RpvtcmaKhxsqac (7 sources)Candidal paronychia ; Translations: [Candidiasis of skin and nail] Onset: 99-79-1916MmgdmqptTicbdwwaeqm chest pain (6 sources)Chest pain; Translations: [Chest pain, unspecified]72-84-3714Ztwtlplf Comment on above:Problem List clean-up per request of Phys. EHR CmteNutritional deficiencies (20 sources)Vitamin D deficiency; Translations: [Decreased vitamin D]01-16-2019 ChronicOsteoarthritis (20 sources)Osteoarthritis; Translations: [Unspecified osteoarthritis, unspecified site]Onset: 453444-59-2266OejferlFjvcadbwpgzlbi (9 sources)Osteoarthritis of left knee joint; Translations: [Degenerative arthritis of left knee]Onset: Other aftercare (4 sources)Long-term current use of drug therapy; Translations: [Other joint terminal attack controller (current) drug therapy]Onset: 70-14-3372HmxqxqyvWbkue and unspecified benign neoplasm (20 sources)Tubular adenoma of heqzq25-06-8310ArwirftbJncai and unspecified benign neoplasm (14 sources)Polyp of colon; Translations: [Polyp of colon]Onset: 09-06-2022 EpisodicOther and unspecified benign neoplasm (20 sources)History of polyp of colon; Translations: [Personal history of colonic polyps]Onset: 68-19-2284FefhzegjRmawp connective tissue disease (20 sources)Artificial knee joint present; Translations: [Presence of left artificial knee joint]Onset: 652166-28-1001XstaqdwConmh connective tissue disease (1 source)History of total knee rwlldcvqiklz81-45-4744TydrujsDjtzh connective tissue disease (1 source)Pain in left lower limb; Translations: [Pain in left leg]Onset: 53-27-7275FrshmdxyRmqwz connective tissue disease (1 source)Pain in right lower limb; Translations: [Pain in right leg]Onset: 83-47-1742FmqtvkahGizfh connective tissue disease (20 sources)Weakness of left hand; Translations: [Other symptoms and signs involving the musculoskeletal system]EpisodicOther connective tissue disease (1 source)Paraparesis; Translations: [Other symptoms and signs involving the musculoskeletal system]EpisodicOther female genital disorders (1 source)Hypertrophy of uterus; Translations: [Hypertrophy of uterus]Episodic Other female genital disorders (1 source)Enlarged xsyyxz60-35-8823GvzarwgaJjbet gastrointestinal disorders (4 sources)Diarrhea; Translations: [Diarrhea, unspecified]Onset: 07-11-2024 EpisodicOther hereditary and degenerative nervous system conditions (20 sources)Restless pwnf94-28-7069IhrryfpAybmp inflammatory condition of skin (20 sources)Granuloma gjwqmeub65-95-9457QcqfekezUtqev liver diseases (20 sources)Steatosis of liver; Translations: [Fatty (change of) liver, not elsewhere classified]Onset: 981247-24-9264XciadlvPwcyg liver diseases (20 sources)Elevated liver enzymes -30-7940XhjbqdcqJbcrb liver diseases (2 sources)Increased aspartate transaminase level; Translations: [Elevation of levels of liver transaminase levels]Onset: 05-23-1120FivrkudkCfeql liver diseases (20 sources)Large liver; Translations: [Hepatomegaly, not elsewhere classified] Onset: 90-79-6702TpnvmhfrYkeaf lower respiratory disease (10 sources)Dyspnea; Translations: [Shortness of breath]Onset: 11-27-2024 EpisodicComment on above:Problem List clean-up per request of Phys. CHAYA Singh Other lower respiratory disease (2 sources)Shortness of breath; Translations: [Shortness of breath]09-10-2022 EpisodicOther lower respiratory disease (1 source)Dyspnea, unspecified; Translations: [Dyspnea, unspecified]Onset: 81-10-6237WhttiaagKufla lower respiratory disease (12 sources)Dyspnea on -22-3381BidyexdpIystw nervous system disorders (20 sources)Neurogenic jieqaqrdclby35-23-1480PzhxpoipZcgfc non-traumatic joint disorders (4 sources)Pain in right hip joint; Translations: [Pain in right hip]Onset: 81-79-4848LtksdbayPjxkb non-traumatic joint disorders (20 sources)Hip csdm70-73-9588KqjrfixeYbpnt non-traumatic joint disorders (3 sources)Pain in right hip; Translations: [Pain in right hip]Onset: 08-10-2023 EpisodicOther nutritional; endocrine; and metabolic disorders (20 sources)Morbid obesity; Translations: [Morbid (severe) obesity due to excess calories]Onset: 43-48-7498CsvthxpJcokl nutritional; endocrine; and metabolic disorders (20 sources)Body mass index 40+ - severely obese; Translations: [Body mass index (BMI) 50.0-59.9, adult]Onset: 43-94-4960PftcdfgGwxle nutritional; endocrine; and metabolic disorders (18 sources)Severe oobymbj75-64-4788YqobitwXvvti nutritional; endocrine; and metabolic disorders (1 source)Obesity; Translations: [Other obesity due to excess calories]Chronic Other nutritional; endocrine; and metabolic disorders (2 sources)Morbid (severe) obesity due to excess calories; Translations: [Morbid (severe) obesity due to excess calories]Onset: 11-50-2167YcxitaiVqgyi nutritional; endocrine; and metabolic disorders (2 sources)Body mass index (BMI) 50.0-59.9, adult; Translations: [Body mass index (BMI) 50.0-59.9, adult]Onset: 25-21-9070WfedqsvCmcyb screening for suspected conditions (not mental disorders or infectious disease) (12 sources)Screening for malignant neoplasm of colon done; Translations: [Encounter for screening for malignant neoplasm of colon]Onset: 11-26-2022 EpisodicOther skin disorders (20 sources)Multiple skin mgki88-16-2742QfokefxvBnnba skin disorders (20 sources)Senile jexoltqjylkkkx19-75-3986RsapfziyZdtprjyn codes; unclassified (20 sources)Obstructive sleep apnea syndrome; Translations: [Obstructive sleep apnea (adult) (pediatric)]Onset: 58-42-2742OqsdltyYzsiqyif codes; unclassified (2 sources)Obstructive sleep apnea (adult) (pediatric); Translations: [Obstructive sleep apnea (adult) (pediatric)]Onset: 58-42-2603BxbspveQpgdbfpi codes; unclassified (3 sources)Preoperative state; Translations: [Pre-operative clearance]Episodic Residual codes; unclassified (2 sources)Tobacco user; Translations: [Tobacco use]EpisodicResidual codes; unclassified (20 sources)Edema of lower fswuxycmm53-66-6968LghhfbucUhwchzyv codes; unclassified (1 source)Family history of malignant neoplasm of uhndp23-73-2014Kvxmveyo Residual codes; unclassified (1 source)FH: Stomach bsyqml66-31-3171YaozynmtSpfwogkc codes; unclassified (12 sources)Localized edema; Translations: [Localized edema]Onset: 08-20-2022 EpisodicResidual codes; unclassified (1 source)Bilateral lower limb edema; Translations: [Localized edema]Episodic Residual codes; unclassified (9 sources)Current drinker; Translations: [Alcohol use, unspecified, uncomplicated]Onset: 96-02-1291DcgjvupaKeztyzdo codes; unclassified (1 source)Localized edema; Translations: [Localized edema]Onset: 08-24-2023 EpisodicRespiratory failure; insufficiency; arrest (adult) (5 sources)Acute respiratory failure; Translations: [Acute respiratory failure with hypoxia]83-60-2374AclbztruBtjucao on above:Problem List clean-up per request of Phys. EHR CmteRespiratory failure; insufficiency; arrest (adult) (1 source)Respiratory failure; insufficiency; arrest (adult); Translations: [Acute respiratory failure with hypoxia]Onset: 11-40-7479Hqho and subcutaneous tissue infections (2 sources)Cellulitis, unspecified; Translations: [Cellulitis]Onset: 12-27-2024 EpisodicSpondylosis; intervertebral disc disorders; other back problems (20 sources)Sciatica; Translations: [Sciatica, unspecified side]Onset: 05-16-7263GakcnxmcWifyoxmzn-related disorders (20 sources)Nicotine dependence; Translations: [Nicotine dependence, cigarettes, uncomplicated]Onset: 77-61-1611CglmxlaBceseombz-related disorders (20 sources)Marijuana user; Translations: [Cannabis misuse]Onset: 08-29-2024 65-15-9701NvxxozkhDpziwzggcjmj (14 sources)Cancer cervix screening qybylz19-39-5603Poqjirtrufoz (20 sources)Patient encounter -77-3621Gwvvgotjpgvt (20 sources)Finding relating to alcohol drinking fdmmhlmu75-09-8514Bktkzuwpbnex (20 sources)Liver function test uzgarhabb86-83-3384 Past or Other Problems Problem ClassificationProblemDateDocumented DateEpisodic/ChronicAbdominal pain (20 sources)Right lower quadrant pain; Translations: [Nonspecific abdominal pain]Onset: 794612-66-8185HgtrlmifDhlqlnzd of mouth; excluding dental (20 sources)Leukedema of tongue; Translations: [Other disturbances of oral epithelium, including tongue]Onset: 433874-39-9312SwgqjyfyEqemk upper respiratory disease (20 sources)Hoarse; Translations: [Dysphonia]Onset: 021778-81-8714Sdsmdrha Syncope (20 sources)Syncope and collapse; Translations: [Syncope and collapse]Onset: 509133-05-2573Iqfnkxpb Results Test NameValueInterpretationReference RangeFacilityAmbulatory Visit Summaryon 26-63-6681Ygagpjjmrl Visit SummaryAmbulatory Visit Summary CARMEN BLEDSOE :1960 Visit Date:04/09/2025 Ambulatory Visit Instructions Your Diagnosis Moderate persistent asthma Morbid obesity with BMI of 50.0-59.9, adult, Morbid (severe) obesity due to excess calories BMI 50.0-59.9, adult, Body mass index [BMI] 50.0-59.9, adult Your Care Team Attending Physician - Nigel MSN, CAP SIZER-[place] VILLATORO Primary Care Physician - Nigel MSN, CAP SIZER-[place] VILLATORO This Is Your Medications List albuterol (Albuterol (Eqv-Ventolin HFA) 90 mcg/inh inhalation aerosol) albuterol (albuterol 0.083% Inh Rochelle 3 mL) amoxicillin-clavulanate (Augmentin 875 mg-125 mg Tab) fluticasone nasal (Flonase 0.05 mg/inh Gruver) glipiZIDE (glipiZIDE 2.5 mg ER Tab) methylPREDNISolone [...] Services Tuesday 9:00 AM EST With: David ELONARD, Rick Gipson Where: [facility] [place] You Need to Schedule the Following Appointments Follow Up with Nigel SMITH, Paris ESPINO When: In 3 months Comments: chronic care Where: [address] [place] [phone] Medications What How Much When Why Instructions New amoxicillin-clavulanate (Augmentin 875 mg-125 mg Tab) 1 Tablets By Mouth Every 12 hours Duration: 7 Days Pickup at [facility] #[facility] New fluticasone nasal (Flonase 0.05 mg/ inh Gruver) 2 Sprays Nasal Inhalation Every day each nostrilPickup at [facility] New methylPREDNISolone (Medrol 4 mg Tab) 1 Packets By Mouth As Directed Duration: 6 Days as directed on package labeling Pickup at [facility] New montelukast (Singulair 10 mg Tab) 1 Tablets By Mouth Once a day (in the evening) Refills: [address] [facility] Changed albuterol (Albuterol (Eqv-Ventolin HFA) 90 mcg/ inh inhalation aerosol) 2 Puffs Inhalation Every 6 hours as needed for Shortness of breath or wheezing COPD with acute exacerbation Pickup at [facility] Changed albuterol (albuterol 0.083% Inh Rochelle 3 mL) 3 Milliliter Nebulized inhalation (aerosol) Every6 hours as needed for Shortness of breath or wheezing Moderate persistent asthma Pickup at [facility]16 Unchanged glipiZIDE (glipiZIDE 2.5 mg ER Tab) 1 Tablets By Mouth Every day Pickup at [facility] Unchanged rosuvastatin (Crestor 40 mg Tab) 1 Tablets By Mouth Every day Mixed hyperlipidemia Pickupat [facility] Unchanged aripiprazole (Abilify 5 mg [...] preserved ejection fraction Co (more content not included)...[facility] Medicine Office/Clinic Noteon 02-88-2699Eizuhp Medicine Office/Clinic NoteFapaul [facility]. [facility]/Clinic Note Chief Complaint Patient presents [...] Then she develops this respiratory infection. Taking lgdv-wyf-emhfabg medication to help with the symptoms with [...] breath or wheezing, 100 EA, Refill(s) 1, [facility] #[facility], 168, cm, 04/09/25 11:43:00 EDT, Height/Length [...] breath or wheezing, 6.7 gm, Refill(s) 1, [facility], 168, cm, 04/09/25 11:43:00 EDT, Height/Length Dosing, 160.8, kg, 04/09/25 11:43:00 EDT, Weight Dosing amoxicillin-clavulanate, 1 tab(s), Oral, q12hr for 7 day(s), 14 tab(s), Refill(s) 0, [facility], 168, cm, 04/09/25 11:43:00 EDT, Height/Length Dosing, 160.8, kg, 04/09/25 11:43:00 EDT, Weight Dosing fluticasone nasal, 2 spray(s), Nasal, Daily, 16 gram, Refill(s) 0, [facility] nostril[facility] (more content not included)...[facility] HospitalComment on above:Result Comment: Electronically Signed By: Nigel SMITH, CAP SIZER-PHOTO OFFSET PRINTER, [place] Hamilton\.br\Date and Time Signed: 04/09/25 12:15 EDTHeart and Vascular Office/Clinic Noteon 44-92-1442Lmwps and Vascular Office/Clinic Note Heart and Vascular [...] Overall, no jayme (more content not included)...Normal [facility] HospitalComment on above:Result Comment: Electronically Signed By: David LEONARD, Rick Gipson\elsie\Date and Time Signed: 03/12/25 13:37 EDT Ambulatory Visit Summaryon 25-23-1895Pzvtjazkzy Visit SummaryAmbulatory Visit Summary CARMEN BLEDSOE :1960 Visit Date:02/04/2025 Ambulatory Visit Instructions Your Diagnosis Moderate persistent asthma Type 2 diabetes mellitus with morbid obesity Morbid obesity with BMI of 50.0-59.9, adult, Morbid (severe) obesity due to excess calories BMI 50.0-59.9, adult, Body mass index [BMI] 50.0-59.9, adult Cigarette smoker Your Care Team Attending Physician - Nigel MSN, CAP SIZER-PHOTO OFFSET PRINTERParis Primary Care Physician - Nigel SMITH, CAP SIZER-PHOTO OFFSET PRINTERParis This Is Your Medications List buPROPion (buPROPion [...] Tuesday 1:00 PM EDT With: Nigel SMITH, DARLEEN-Paris VILLATORO Where: [facility] [place] [address] [place] [address]- Tuesday 1:15 PM EDT With: Rick Hernandez PA-C Where: [facility] [place] You Need to Schedule the Following Appointments Follow Up with Nigel SMITH, SRINIVAS, Paris Hamilton When: In 1 month Comments: weight loss, initial 40 min Where: [address] [place] [phone] Medications What How Much When Why Instructions New buPROPion (buPROPion 150 mg/ 24 hours XL Tab) 1 Tablets By Mouth Every 24 hours Pickup at [facility]16 Unchanged albuterol (Albuterol (Eqv-Ventolin HFA) 90 [...] See instructions Moderate pe (more content not included)...[facility] Medicine Office/Clinic Noteon 18-33-8613Lfsisr Medicine Office/Clinic NoteFapaul a. [facility] Medicine Office/Clinic Note Chief Complaint The patient [...] Nicotine dependence, cigarettes, uncomplicated) (more content not included)...[facility] HospitalComment on above: Result Comment: Electronically Signed By: Nigel SMITH, SRINIVAS, Paris Hamilton\.br\Date and Time Signed: 02/04/25 15:13 EDTAmbulatory Visit Summaryon 40-81-1059Lcqazepdmz Visit SummaryAmbulatory Visit Summary CARMEN BLEDSOE :1960 [...] Tuesday 1:40 PM EDT With: Nigel MSN, CAP SIZER-PHOTO OFFSET PRINTER, Paris Hamilton Where: [facility] [address] [place] [address]- Tuesday 1:15 PM EDT With: David LEONARD, Rick Gipson Where: [facility] [place] Medications What How Much When Why Instructions [...] mg Tab) 1 (more content not included)... [facility] Office/Clinic Noteon 66-89-8488Axmkn and Vascular Office/Clinic NoteHeart and Vascular Office/Clinic [...] has history of per (more content not included)...[facility] HospitalComment on above:Result Comment: Electronically Signed By: David LEONARD, Rick Gipson\elsie\Date and Time Signed: 01/29/25 10:10 [facility] 34-29-8872QarkhhybnnNew [facility] Case Information Case Priority: None Programs: -- Referral Source: Finishing Manager Referral Reason: Care coordination Case Type: Transition Care Management Risk Score: -- Case Status: Enrolled (December 31, 2024) Date Assigned: December 31, 2024 Assigned By: Gracy Maxwell R.N. Date Enrolled: December 31, 2024 Assigned Primary Personnel: Gracy Maxwell R.N. Assigned Secondary Personnel: -- Case Physician: Nigel MSN, CAP SIZER-PHOTO OFFSET PRINTER, [place] Hamilton Problems Ongoing Alcohol abuse, in [...] See Instructions nystatin 100,000 units/mL Oral Susp, 352813 unit(s)= 5 mL, Oral-Swish&Swallow, QID nystatin Top [...] and Assessments 12/31/24 09:55: (more content not included)...[facility] BNPon 76-75-5636Vbb Ctr BNPPassNormalHolzer HospitalComment on above:Performed By: #### [id number] #### [facility] [address] [place], [place] [address]Bpsrkecxdvb peptide B (Bld) [Mass/Vol]20 pg/mLNormal5-80Holzer HospitalComment on above:Performed By: #### [id number] #### [facility] [address] [place], [place] [address]QDJ w/ Auto Diffon 61-79-2112Zubmpchp Absolute0.2 E9/LNormal 0.0-0.2[facility] Agnes HospitalComment on above:Performed By: #### [id number] #### [facility] [address] [place], [place] [address]Nmidfeinf/100 WBC (Bld)3.1 %High0.0-2.0Holzer HospitalComment on above:Performed By: #### [id number] #### [facility] [address] [place], [place] [address]Fxp Absolute0.1 E9/LNormal0.0-0.5FParkwood Hospital Comment on above:Performed By: #### [id number] #### [facility] [address] [place], [place] [address]Yqmtmwqhtbw/100 WBC (Bld)2.7 %Normal0.0-8.0Hol[facility] HospitalComment on above:Performed By: #### [id number] #### [facility] [address] [place] [address]Hwvvzylkvnp distribution width (RBC) [Ratio]15.8 %High10.9-14.2 [facility] HospitalComment on above:Performed By: #### [id number] #### [facility] [address] [place] [address]Mkutiqrutq (Bld) [Volume fraction]38.3 %Qjtygc58.0-46.0Hol[facility] HospitalComment on above:Performed By: #### [id number] #### [facility] [address] [place] [address]Sqnetfnpjl (Bld) [Mass/Vol]13.0 g/dPGrthcp89.0-16.0Holzer HospitalComment on above:Performed By: #### [id number] #### [facility] [address] [place] [address]Rojne Absolute0.8 E9/LLow1.0-4.0[facility] Comment on above:Performed By: #### [id number] #### [facility] [address] [place] [address]Qovgnuqyyrg/100 WBC (Bld)15.4 %Pxdzjm46.0-50.0Holzer HospitalComment on above:Performed By: #### [id number] #### [facility] [address] [place] [address]MGP (RBC) [Entitic mass]31.3 gdSighra29.0-34.0Hol[facility] HospitalComment on above:Performed By: #### [id number] #### [facility] [address] [place] [address] 11021BBPB (RBC) [Mass/Vol]33.9 g/vAIjgyoy19.4-36.0Hol[facility] HospitalComment on above:Performed By: #### [id number] #### [facility] [address] [place] [address]JMT (RBC) [Entitic vol]92.2 yJYssqyl03.0-100.0Hol[facility] HospitalComment on above:Performed By: #### [id number] #### [facility] [address] [place] [address]Fkug Absolute0.4 E9/LNormal0.2-1.0[facility] Comment on above:Performed By: #### [id number] #### [facility] [address] [place] [address]Febjetahk/100 WBC (Bld)7.3 %Normal4.0-14.0Holzer HospitalComment on above:Performed By: #### [id number] #### [facility] [address] [place] [address] 98[address]Idqdvt Absolute3.6 E9/LNormal2.0-7.5FParkwood Hospital Comment on above:Performed By: #### [id number] #### [facility] [address] [place] [address]Zonpxy Auto71.5 %Eqdtou30.0-75.0[facility] Comment on above:Performed By: #### [id number] #### [facility] [address] [place] [address] 596[address]Pcjdsfhd394.0 E9/IWlbixm922.0-500.0[facility] Comment on above:Performed By: #### [id number] #### [facility] [address] [place], [place] [address]Gumlxalw mean volume (Bld) [Entitic vol]7.2 fLNormal6.4-10.8 [facility] HospitalComment on above:Performed By: #### [id number] #### [facility] [address] [place], [place] [address]CCQ8.2 E12/LLow4.3-5.9Hol[facility] HospitalComment on above:Performed By: #### [id number] #### [facility] [address] [place], [place] [address]LCN3.0 E9/LNormal4.0-11.0[facility]zer HospitalComment on above:Performed By: #### [id number] #### [facility] [address] [place] [address]JWVma 31-17-1475Ruhedfa [Mass/Vol]4.3 g/dLNormal3.3-5.0[facility] HospitalComment on above:Performed By: #### [id number] #### [facility] [address] [place] [address]Besqctl/Globulin [Mass ratio]1.5 {ratio}Normal1.1-2.2FParkwood HospitalComment on above:Performed By: #### [id number] #### [facility] [address] [place] [address]Ivy Phos61 Int._Unit/MUleurd83-85VxqlepHolzer Hospital Comment on above:Performed By: #### [id number] #### [facility] [address] [place], [place] [address]TJQ18 Int._Unit/LNormal6-46Hol[facility] HospitalComment on above:Performed By: #### [id number] #### [facility] [address] [place], [place] [address]Mepmb gap [Moles/Vol]10 mmol/LNormal6-16Holzer HospitalComment on above:Performed By: #### [id number] #### [facility] [address] [place], [place] [address]BBT27 Int._Unit/LNormal5-43[facility] HospitalComment on above:Performed By: #### [id number] #### [facility] [address] [place], [place] [address]Nigu Total0.4 mg/dLNormal0.0-1.1FParkwood Hospital Comment on above:Performed By: #### [id number] #### [facility] [address] [place], [place] [address]VTU/Creat Ratio20 No WkicrTrirzi09-93ZgrbfgHolzer HospitalComment on above:Performed By: #### [id number] #### [facility] [address] [place], [place] [address]Gdhftel [Mass/Vol]9.3 mg/dLNormal8.9-11.1FParkwood HospitalComment on above:Performed By: #### [id number] #### [facility] [address] [place], [place] [address]Pjsyegcr [Moles/Vol]100 mmol/WSua975-678VlzblzHolzer HospitalComment on above:Performed By: #### [id number] #### [facility] [address] [place], [place] [address]PK7 [Moles/Vol]33 mmol/ZWwfz31-36JqlpkmHolzer Hospital Comment on above:Performed By: #### [id number] #### [facility] [address] [place], [place] [address]Mzztkgrlqf [Mass/Vol]0.8 mg/dLNormal0.5-1.3FParkwood HospitalComment on above:Performed By: #### [id number] #### [facility] [address] [place], [place] [address]Afqteaai (S) [Mass/Vol]2.9 g/dLNormal1.4-4.0Holzer HospitalComment on above:Performed By: #### [id number] #### [facility] [address] [place], [place] [address]Kyhmuto [Mass/Vol]114 mg/cKGvfmjm06-397UmojlnHolzer HospitalComment on above:Performed By: #### [id number] #### [facility] [address] [place], [place] [address]Xukpullfi [Moles/Vol]3.7 mmol/LNormal3.5-5.3FParkwood HospitalComment on above:Performed By: #### [id number] #### [facility] [address] [place], [place] [address]Ehprczf [Mass/Vol]7.2 g/dLNormal6.0-7.8Holzer HospitalComment on above:Performed By: #### [id number] #### [facility] [address] [place], [place] [address]Rpxdqg [Moles/Vol]139 mmol/KKxrivg829-222WyrwboHolzer HospitalComment on above:Performed By: #### [id number] #### [facility] [address] [place], [place] [address]Xnrv nitrogen [Mass/Vol]16 mg/dLNormal5-21Holzer HospitalComment on above:Performed By: #### [id number] #### [facility] [address] [place], [place] [address]RD Abdomen/Pelvis w/ Contraston 53-12-1819CG Abdomen/Pelvis w/ ContrastExam Date/Time: 01/24/2025 11:09 EDT [...] Grider MD Transcribed by: KARSTEN Technologist: Ch[facility] CenterED Clinical Summaryon [id number] Clinical SummaryED Clinical Summary [place] [id number] ED Clinical Summary Person Information Name: CARMEN BLEDSOE[place] Age: 64 Years : 1960 Sex: Female Language: [place] Islander PCP: Nigel SMITH, CAP SIZER-PHOTO OFFSET PRINTERParis Marital Status: Single Visit Id: Visit Reason: [...] 01/24/2025 13:34:37 01/24/2025 13:34:37 01/24/2025 13:34:37 ADDRESS: [address] [place] [address] DOC PR [id number] PHYS DOC NOTES: MEDICAL INFORMATION: Prescriptions Given: New Medications [employer] [facility], [address], [place] [id number], [phone] acetaminophen-hydrocodone ([place] 325 mg-5 mg oral tablet) 1 Tablets [...] daily. Refills: 3. (more content not included)...NormalFisher Guánica Medical CenterED Note-Physician on 33-29-6007DT Note-PhysicianED Note-Physician Basic Information Time Seen: Lui [...] or rigidity noted. Neurological: A&O, normal equal meteorologist liaison strength, normal speech, normal coordination, normal motor, [...] abdomen and p (more content not included)...Normal [facility] HospitalComment on above:Result Comment: Electronically Signed By: Lui Christiansen PA-C\.br\Date and Time Signed: 01/25/2516:12 EDT\.br\Electronically Co-Signed By: Oneal Newman DO\.br\Date and Time Co-Signed: 01/24/25 19:04 EDTED Patient Summaryon [id number] Patient SummaryED Patient Summary [place] [address] Patient Discharge Instructions Person Information Name: CARMEN BLEDSOE Age: 64 Years Arrival Date: 01/24/2025 08:46:49 Discharge Diagnosis: COPD exacerbation; Laceration of left ear; Left hip pain; Low back pain; Multiple falls; Oral thrush; Osteoarthritis of hip; Shortness of breath Primary Care Physician: Nigel MSN, CAP SIZER-IRVING, Paris Hamilton Provider Information Primary Provider: [employer] Coordinator:Lui Christiansen PA-C The exam and treatment you received in the Emergency Department were for an urgent problem and are not intended as complete care. It is important that you follow up with a doctor, nurse practitioner,or physician???s orthopaedic physician assistant for ongoing care. If your [...] Follow-up Instructions: With: Address: When: Paris Rust [address] [facility], [place], [place] [phone] [employer] (1) In 3 days 01/27/2025 Comments: Please call primary care office for close outpatient follow-up regarding thrush, back and hip pain,COPD exacerbation. Take medication as prescribed. Return to ED if symptoms worsen or new symptoms arise. Please ambulate with assistance at home to prevent further falls. Return to ED if you have another fall. With: Address: When: [facility] [address] [place] [address] [phone] [employer] () In 3 days 01/27/2025 Comments: Please [...] opioids can be used to help relieve bqpdsisc-wt-urtsft pain and are often prescribed following a [...] up with your prima (more content not included)...NormalHolzer HospitalPT & PTTon 15-87-1097MVG Coag (PPP) [Relative time]1.00 {INR} Invalid Interpretation [facility] WestComment on above:Result Comment: INR results are specifically intended to assess patients stabilized on long-term Anticoagulation therapy suggested INR???s ???Less Intensive Anticoagulation??? 2.0 ??? 3.0 Conventional Range 3.0 ??? 4.5Performed By: #### [id number] #### [facility] [address] [place], [place] [address]HS38.2 second(s)Normal9.4-12.5[facility] Comment on above:Result Comment: 15 days [...] the same coagulation reagent and instrumentation as [facility]. Currently there are no coagulation studies available worldwide for children to 14 days, andno normal ranges.Performed By: #### [id number] #### [facility] [address] [place], [place] [address]KBD49.6 second(s)Eujsxk34.1-36.5[facility] Comment on above:Result Comment: Parameter 15 [...] the same coagulation reagent and instrumentation as [facility]. Currently there are no coagulation studies available worldwide for children to 14 days, andno normal ranges. Heparin therapeutic range (represented by Anti-Factor Xa activity of 0.2 - 0.4 U/mL) corresponds to PTT of 56.6 - 109.0 sec.Performed By: #### [id number] #### [facility] [address], [place] [address]Cjvmvndv 0 Hr.on 68-88-3938Hkmqojdo HS4.50 pg/mLLow10.10-27.10 [facility] HospitalComment on above:Result Comment: The 95% CI (Confidence Interval) PPV (Positive Predictive Value) for myocardial infarction in females is 38 pg/mL, in males 51 pg/mL. The results should be used in conjunction with clinical conditions of myocardial infarction. (Access High Sensitivity Troponin I Instructions For Use, [employer], February 2018)Performed By: #### [id number] #### [facility] [address] [place], [place] [address]Xqeyfiam 1 Hr.on 64-22-4839Sxtfphjb HS3.90 pg/mLLow10.10-27.10 [facility] HospitalComment on above:Result Comment: The 95% CI (Confidence Interval) PPV (Positive Predictive Value) for myocardial infarction in females is 38 pg/mL, in males 51 pg/mL. The results should be used in conjunction with clinical conditions of myocardial infarction. (Access High Sensitivity Troponin I Instructions For Use, [employer], February 2018)Performed By: #### [id number] #### [facility] [address] [place], [place] [address]CN with Cult Rflxon 84-22-8229Alvcb (U)ColorlessAbnormalYellow [facility] HospitalComment on above:Result Comment: Microscopic readings are only performed on those samples that meet specific criteria set forth by [facility].Performed By: #### [id number] #### [facility] [address] [place], [place] [address]Gpfdllj Ql (U)NegativeNormalNegativeHolzer Hospital Comment on above:Performed By: #### [id number] #### [facility] [address] [place], [place] [address]DH BloodNegativeNormalNegativeHolzer Hospital Comment on above:Performed By: #### [id number] #### [facility] [address] [place], [place] [address]UJ ClarityClearNormalClearHolzer HospitalComment on above:Performed By: #### [id number] #### [facility] [address] [place], [place] [address]KQ Glucose3+ mg/dLAbnoOhioHealth Van Wert Hospital Comment on above:Performed By: #### [id number] #### [facility] [address] [place] [address], [place] [address]CR Leuk EstNegativeNormnjNegOhio State Harding Hospital Comment on above:Performed By: #### [id number] #### [facility] [address] [place] [address], [place] [address]HC NitriteNegativeNormalNegOhio State Harding Hospital Comment on above:Performed By: #### [id number] #### [facility] [address] [place], [place] [address]HK pH5.0Invalid Interpretation Code5.0-9.0Hol[facility] HospitalComment on above:Performed By: #### [id number] #### [facility] [address] [place], [place] [address]JZ ProteinNegativeNoatrium health wake forest baptist davie medical centerNegOhio State Harding Hospital Comment on above:Performed By: #### [id number] #### [facility] [address] [place], [place] [address]EP Spec Grav1.016Invalid Interpretation Code1.005-1.030Holzer HospitalComment on above:Performed By: #### [id number] #### [facility] [address] [place] [address], [place] [address]NC UrobilinogenNegativeNormalShelby Memorial HospitalComment on above:Performed By: #### [id number] #### [facility] [address] [place] [address], [place] [address]Ywxdzkqfkpkg (U) [Mass/Vol]NegativeNormalNegOhio State Harding HospitalComment on above:Performed By: #### [id number] #### [facility] [address] [place], [place] [address]GQ Spec DescClean CatchNoLicking Memorial HospitalComment on above:Performed By: #### [id number] #### [facility] [address] [place], [place] [address]HX Lower Extremity Venous Duplex Lefton 08-61-2946DZ Lower Extremity Venous Duplex LeftExam Date/Time: 01/24/2025 [...] Grider MD Transcribed by: KARSTEN Technologist: Marcos RUBINUnc Health Appalachiancarl St. Agnes HospitalXR Chest Single Viewon 82-52-7309ZI Chest Single ViewExam Date/Time: 01/24/2025 09:47 EDT [...] Braxton Norris DO Transcribed by: KARSTEN Technologist: ChristianoLicking Memorial HospitalXR Hip 2-3 Views Left + Pelvison 25-83-9352HB Hip 2-3 Views Left + PelvisExam Date/Time: [...] Braxton Norris DO Transcribed by: KARSTEN Technologist: NICHOLASProMedica Toledo HospitaleGFRon 30-58-6253oLSH43 mL/min/1.73 o5Ozidgq>=59Holzer HospitalComment on above:Performed By: #### [id number] #### [facility] [address] [place], [place] [address]Eszreyhaqrh 08-90-6149QysiyrwgdMtrelcknk From: Gracy Maxwlel R.N. To: [facility] Hotel Supplies Salesperson; Gracy Maxwell R.N.; Sent: 01/21/2025 12:29:37 EDT Show up: 01/21/2025 12:29:00 EDT Subject: tcm #2 final Due Date/Time: 01/28/2025 12:29:00 EDT Reminder/RecallProMedica Toledo HospitalPulmonary Function Studieson 13-20-9216Jvedtfhif Function StudiesPulmonary Function Studies PULMONARY FUNCTION TEST: [...] BY: Javier Hall M.D. ca Dictated: 01/12/2025 [id number] Transcribed: 01/15/2025 cc:[place] Rust [facility] County HospitalComment on above: Result Comment: Electronically Signed By: Isabel SAMPSON, Javier Fernandes\.br\Date and Time Signed: 01/16/25 10:16 EDTAmbulatory Visit Summaryon 82-33-6766Vnxfvvrnrq Visit SummaryAmbulatory Visit Summary CARMEN BLEDSOE :1960 Visit Date:01/02/2025 Ambulatory Visit Instructions Your Diagnosis Heart failure with preserved ejection fraction Obstructive sleep apnea Type 2 diabetes mellitus with morbid obesity Cigarette smoker Morbid obesity with BMI of 50.0-59.9, adult, Morbid (severe) obesity due to excess calories Your Care Team Attending Physician - Nigel SMITH, DARLEEN-Paris VILLATORO Primary Care Physician - Nigel SMITH, CAP SIZER-Paris VILLATORO This Is Your Medications List nicotine (nicotine [...] Tuesday 1:40 PM EDT With: Nigel SMITH, DARLEEN-IRVING, [place] Hamilton Where: [place] [address] [place] [address]- You Need to Schedule the Following Appointments Follow Up with Nigel SMITH, SRINIVAS, [place] Hamilton When: In 1 month Where: [address] [place] [phone] Medications What How Much When Why Instructions New nicotine (nicotine 21 mg/ 24 hr Transderm ER Film) 1 Patches Topical Every 24 hours Duration: 21 Days wear only one patch at a time, for 24 hours only Pickup at [facility] Unchanged albuterol (Albuterol (Eqv-Ventolin HFA) 90 [...] mellitus with morbid obes (more content not included)...ProMedica Toledo HospitalCHEMISTRYOrdered By: Felicity Marin on 21-16-3764Brentkj DL <= 20 mg/L (U) [Mass/Vol]mg/dLNormal0.0 - 1.9 mg/dLRemisol ChemAlbumin/Creatinine DL <= 20 mg/L (U) [Mass ratio]NOT CALCULATEDInvalid Interpretation Code0.0 - 30.0 Remisol ChemComment on above:Interpretive Data: 30-300 mg/g Cr indicates an increased risk for diabetic nephropathy. >300 mg/g Cr is consistent with clinical nephropathy.U Kkipumjddl49.8 mg/dL Invalid Interpretation CodeRemisol ChemFamily Medicine Office/Clinic Noteon 37-50-1021Yibulm Medicine Office/Clinic NoteFamily Medicine Office/Clinic Note Chief [...] (abnormal relaxation pattern). [1] List of Providers Clerical Adviser: Rick Hernandez PA-C Salesperson Corsets: Dr Phillip Orthopaedics: Dr Martinez LABS Cr/eGFR: [...] Appt. Date: 01/07/2025 12:30 PM Scheduled Provider: [facility] Pulmonary Function Lab Phone: -- Fax: -- [...] further complications. She did follow-up with her network engineer administrator yesterday and she is to follow-up with [...] history of cellulitis, (more content not included)... NormalHolzer HospitalComment on above:Result Comment: Electronically Signed By: Nigel SMITH, CAP SIZER-PHOTO OFFSET PRINTER, [place] Hamilton\.br\Date and Time Signed: 01/02/25 15:41 EDTU MA/Cr Ratioon 54-29-5446Ucavazhs/Cr RatioNOT CALCULATEDInvalid Interpretation Code.0-30.0Holzer HospitalComment on above:Result Comment: 30-300 mg/g Cr indicates an increased risk for diabetic nephropathy. >300 mg/g Cr is consistent with clinical nephropathy.Performed By: #### [id number] #### [facility] [address] [place], [place] [address]M Ocfzwoozvv95.8 mg/dLInvalid Interpretation CodeHolzer HospitalComment on above:Performed By: #### [id number] #### [facility] [address] [place], [place] [address]A Microalb<0.2Eemfgq3.0-1.9Holzer HospitalComment on above:Performed By: #### [id number] #### [facility] [address] [place], [place] [address]Wwsre and Vascular Office/Clinic Noteon 62-54-6529Xgldi and Vascular Office/Clinic NoteHeart and Vascular Office/Clinic [...] to swelling, but (more content not included)...Normal [facility] HospitalComment on above:Result Comment: Electronically Signed By: Rick Hernandez PA-C\Date and Time Signed: 01/01/25 14:28 EDT [facility] 25-61-2788KzxaavqziqEllwood Medical Center Case Information Case Priority: None Programs: -- Referral Source: Finishing Manager Referral Reason: Care coordination Case Type: Transition Care Management Risk Score: -- Case Status: Enrolled (December 31, 2024) Date Assigned: December 31, 2024 Assigned By: Gracy Maxwell R.N. Date Enrolled: December 31, 2024 Assigned Primary Personnel: Gracy Maxwell R.N. Assigned Secondary Personnel: -- Case Physician: Nigel SMITH, CAP SIZER-PHOTO OFFSET PRINTER, [place] Hamilton Problems Ongoing Alcohol abuse, in [...] enrollment Goals and Intervention (more content not included)...ProMedica Toledo HospitalCoding Queryon [id number] QueryCoding Query From: Anais Wood RN To: [...] CARMEN BLEDSOE; Caller Number: Cuca , M ProMedica Toledo HospitalBMPon 82-76-1542Ceslu gap [Moles/Vol]10 mmol/L Normal6-16Holzer HospitalComment on above:Performed By: #### [id number] #### [facility] [address] [place], [place] [address]KZZ/Creat Ratio30 No LxsgiKgdv65-08BlewxpHolzer Hospital Comment on above:Performed By: #### [id number] #### [facility] [address] [place], [place] [address]Xejvujb [Mass/Vol]9.1 mg/dLNormal8.9-11.1[facility] HospitalComment on above:Performed By: #### [id number] #### [facility] [address] [place], [place] [address]Jrbfbakg [Moles/Vol]98 mmol/NWvd259-147TlopghHolzer HospitalComment on above:Performed By: #### [id number] #### [facility] [address] [place], [place] [address]AT5 [Moles/Vol]31 mmol/QJsurbn38-07OgrhwmHolzer Hospital Comment on above:Performed By: #### [id number] #### [facility] [address] [place], [place] [address]Mkabddrbni [Mass/Vol]0.7 mg/dLNormal0.5-1.3FParkwood HospitalComment on above:Performed By: #### [id number] #### [facility] [address] [place], [place] [address]Glgoixn [Mass/Vol]185 mg/rLOgdaym22-742YgofwyHolzer HospitalComment on above:Performed By: #### [id number] #### [facility] [address] [place], [place] [address]Oqtgxihwe [Moles/Vol]4.2 mmol/LNormal3.5-5.3FParkwood HospitalComment on above:Performed By: #### [id number] #### [facility] [address] [place] [address]Yuwtqd [Moles/Vol]135 mmol/KJspdpl427-120EbeucmHolzer HospitalComment on above:Performed By: #### [id number] #### [facility] [address] [place] [address]Orke nitrogen [Mass/Vol]21 mg/dLNormal5-21Holzer HospitalComment on above:Performed By: #### [id number] #### [facility] [address] [place] [address]BCF w/ Auto Diffon 76-72-8823Nwdwrxqg Absolute0.1 E9/LNormal 0.0-0.2FParkwood HospitalComment on above:Performed By: #### [id number] #### [facility] [address] [place] [address]Xhayriucj/100 WBC (Bld)0.6 %Normal0.0-2.0Holzer HospitalComment on above:Performed By: #### [id number] #### [facility] [address] [place] [address]Tkk Absolute0.0 E9/LNormal0.0-0.5FParkwood Hospital Comment on above:Performed By: #### [id number] #### [facility] [address] [place], [place] [address]Vbvekxdpbwx/100 WBC (Bld)0.0 %Normal0.0-8.0Holzer HospitalComment on above:Performed By: #### [id number] #### [facility] [address] [place] [address]Zkwkuiniydj distribution width (RBC) [Ratio]15.6 %High10.9-14.2 Holzer HospitalComment on above:Performed By: #### [id number] #### [facility] [address] [place] [address]Otnyaesfjt (Bld) [Volume fraction]39.3 %Xfqlun40.0-46.0Holzer HospitalComment on above:Performed By: #### [id number] #### [facility] [address] [place] [address]Pktfttjhfa (Bld) [Mass/Vol]13.0 g/hQTydyaa28.0-16.0Holzer HospitalComment on above:Performed By: #### [id number] #### [facility] [address] [place] [address]Vbwyz Absolute0.6 E9/LLow1.0-4.0[facility] Comment on above:Performed By: #### [id number] #### [facility] [address] [place], [place] [address]Eoaphlsmqtl/100 WBC (Bld)6.3 %Low14.0-50.0Holzer HospitalComment on above:Performed By: #### [id number] #### [facility] [address] [place], [place] [address]YDM (RBC) [Entitic mass]30.4 glLnbfpl28.0-34.0Holzer HospitalComment on above:Performed By: #### [id number] #### [facility] [address] [place] [address]KEUY (RBC) [Mass/Vol]33.2 g/fJUxcsuj18.4-36.0[facility]zer HospitalComment on above:Performed By: #### [id number] #### [facility] [address] [place] [address]IOG (RBC) [Entitic vol]91.6 yOFxmmqa80.0-100.0Holzer HospitalComment on above:Performed By: #### [id number] #### [facility] [address] [place], [place] [address]Wclb Absolute0.5 E9/LNormal0.2-1.0[facility] Comment on above:Performed By: #### [id number] #### [facility] [address] [place] [address]Xokleubwl/100 WBC (Bld)5.0 %Normal4.0-14.0Holzer HospitalComment on above:Performed By: #### [id number] #### [facility] [address] [place], [place] [address]Xnmqmt Absolute8.3 E9/LHigh2.0-7.5FParkwood Hospital Comment on above:Performed By: #### [id number] #### [facility] [address] [place], [place] [address]Qrtndj Auto88.1 %High36.0-75.0[facility] Comment on above:Performed By: #### [id number] #### [facility] [address] [place], [place] [address]Jxxsrqes109.0 E9/LLptccd704.0-500.0[facility] Comment on above:Performed By: #### [id number] #### [facility] [address] [place], [place] [address]Kcuacolb mean volume (Bld) [Entitic vol]7.3 fLNormal6.4-10.8 Holzer HospitalComment on above:Performed By: #### [id number] #### [facility] [address] [place], [place] [address]IOW8.3 E12/LNormal4.3-5.9Holzer HospitalComment on above:Performed By: #### [id number] #### [facility] [address] [place], [place] [address]KEV3.4 E9/LNormal4.0-11.0Holzer HospitalComment on above:Performed By: #### [id number] #### [facility] [address] [place], [place] [address]SROVFAXKCMwnxtvt By: Lab ROPUser on 42-68-5689Jpqvkfs [Mass/Vol]200 mg/pWWdan18 - 99 mg/dLNORTHEAST[facility] POC SubsectionComment on above:Result Comment: Notified RN/MDPOC UsernamLELE RosadoInyolyid Interpretation Code [facility] POC SubsectionSodium [Moles/Vol]227659688 mmol/LInvalid Interpretation Code [facility] POC SubsectionSodium [Moles/Vol]043280829961 mmol/LInvalid Interpretation CodeNORTHEASTERN [facility]ALTH SYSTEM [facility] POC SubsectionGlucose [Mass/Vol]166 mg/yQQqqp56 - 99 mg/dLNORTHEASTERN [facility]ALTH [facility] POC SubsectionComment on above:Result Comment: Notified RN/MDPOC UsernamEvans Chairez Interpretation CodeNORTHEASTERN [facility] POC SubsectionSodium [Moles/Vol]936760016 mmol/LInvalid Interpretation CodeNORTHEASTERN [facility]ALTH SYSTEM [facility] POC SubsectionSodium [Moles/Vol] 829204658785 mmol/LInvalid Interpretation CodeNORTHEASTERN [facility]ALTH SYSTEM [facility] POC SubsectionCHEMISTRY Ordered By: SYSTEM SYSTEM on 41-32-1734Ryfep gap [Moles/Vol]10 mmol/LNormal6 - 16 mEq/LRemisol ChemCalcium [Mass/Vol]9.1 mg/dLNormal8.9 - 11.1 mg/dLRemisol ChemChloride [Moles/Vol]98 mmol/PZsr649 - 111 mmol/LRemisol ChemCO2 [Moles/Vol] 31 mmol/KXgiirr99 - 31 mmol/LRemisol ChemCreatinine [Mass/Vol]0.7 mg/dLNormal0.5 - 1.3 mg/dLRemisol ChemGFR/1.73 sq M.predicted MDRD (S/P/Bld) [Vol rate/Area]98 mL/min/1.73 q1Evakqg>=59mL/min/1.73 n5Pnvaymo ChemGlucose [Mass/Vol]185 mg/dL Khqlpb28 - 199 mg/dLRemisol ChemPotassium [Moles/Vol]4.2 mmol/LNormal3.5 - 5.3 mmol/LRemisol ChemSodium [Moles/Vol]135 mmol/LEcfaxk198 - 145 mmol/LRemisol Chem Urea nitrogen [Mass/Vol]21 mg/dLNormal5 - 21 mg/dLRemisol ChemUrea nitrogen/Creatinine [Mass ratio]30 mg/ucNklh51 - 20Remisol ChemCapillary Glucose POCon 98-50-2553Zalxfzd [Mass/Vol]200 mg/wIDzsk14-07LszkdtHolzer Hospital Comment on above:Result Comment: Notified RN/MDPerformed By: #### [id number] #### [facility] [address] [place], [place] [address]Ldddowp [Mass/Vol]166 mg/oXTohj04-19JkjbsoHolzer Hospital Comment on above:Result Comment: Notified RN/MDPerformed By: #### [id number] #### [facility] [address] [place], [place] [address]GYZOQMJXOARdqregw By: SYSTEM SYSTEM on 30-46-3290Qtqlknqow/100 WBC (Bld)0.6 %Normal0.0 - 2.0 %Remisol HemeBasophils/Leukocytes Auto (Bld) [Pure # fraction]0.1 E9/LNormal0.0 - 0.2 E9/LRemisol HemeEosinophils (Bld) [#/Vol]0.0 E9/LNormal0.0 - 0.5 E9/LRemisol HemeEosinophils/100 WBC (Bld)0.0 %Normal0.0 - 8.0 %Remisol HemeErythrocyte distribution width (RBC) [Ratio]15.6 %High10.9 - 14.2 %Remisol HemeHematocrit (Bld) [Volume fraction]39.3 %Qxpgxd35.0 - 46.0 % Remisol HemeHemoglobin (Bld) [Mass/Vol]13.0 g/kEFupdrr83.0 - 16.0 gm/dLRemisol HemeLymphocytes (Bld) [#/Vol]0.6 E9/LLow1.0 - 4.0 E9/LRemisol Heme Lymphocytes/100 WBC (Bld)6.3 %Low14.0 - 50.0 %Remisol HemeMCH (RBC) [Entitic mass]30.4 xeYqkygw56.0 - 34.0 pgRemisol HemeMCHC (RBC) [Mass/Vol]33.2 g/dLNormal 31.4 - 36.0 gm/dLRemisol HemeMCV (RBC) [Entitic vol]91.6 aPRpdcms37.0 - 100.0 fL Remisol HemeMonocytes (Bld) [#/Vol]0.5 E9/LNormal0.2 - 1.0 E9/LRemisol Heme Monocytes/100 WBC (Bld)5.0 %Normal4.0 - 14.0 %Remisol HemeNeutrophils (Bld) [#/Vol]8.3 E9/LHigh2.0 - 7.5 E9/LRemisol HemeNeutrophils/100 WBC (Bld)88.1 %High 36.0 - 75.0 %Remisol HemePlatelet mean volume (Bld) [Entitic vol]7.3 fLNormal6.4 - 10.8 fLRemisol HemePlatelets (Bld) [#/Vol]286.0 E9/ASraogk469.0 - 500.0 E9/L Remisol HemeRBC (Bld) [#/Vol]4.3 E12/LNormal4.3 - 5.9 E12/LRemisol HemeWBC corrected for nucl RBC Auto (Bld) [#/Vol]9.4 E9/LNormal4.0 - 11.0 E9/LRemisol HemeInpatient Patient Summaryon 49-09-6507Tpvvxlpiu Patient SummaryInpatient Patient Summary CARMEN BLEDSOE :1960 Visit Date:12/27/2024 [...] night. Discuss inceased lasix dose with your network engineer administrator. May discuss adding Entresto or Losartan as outpatient too to help with your heart failure.Return to ER if symptoms return or wrosen Previously Scheduled Follow-Up Appointments Tuesday 2:00 PM EDT With: Rick Hernandez PA-C Where: [facility] Tuesday 1:40 PM EDT With: Nigel MSN, CAP SIZER-PHOTO OFFSET PRINTER, [place] Hamilton Where: [facility] [place] [address] [place] [address] Tuesday 12:30 PM EDT With: Where: [facility] New Follow Up Appointments after Discharge Follow Up with Follow up with your network engineer administrator as Scheduled January 01 When: Follow Up with Paris Rust When: Within 7 to 10 days Comments: Call for followup appointment Where: [address] [place] [address] [phone] Business (1) Medications What How Much When Why Instructions Next Dose New azithromycin (azithromycin 250 mg Tab) 1 Tablets By Mouth Every day COPD with acute exacerbation Duration: 3 Days Pickup at [facility] New predniSONE (predniSONE 10 mg Tab) 1 Tablets By Mouth As Directed COPD with acute exacerbation 4tabs for 2 days,3 tabs for 2 days,2 tabs for 2 days,1 tab for 2 days Pickup at [facility] Changed cephalexin (cephalexin 500 mg Cap) 1 Capsules By Mouth 4 times a day Cellulitis of leg Duration: 8 Days Pickup at [facility] Changed furosemide (furosemide 40 mg Tab) 1 Tablets By Mouth 2 times a day Peripheral edema Acute on chronic heart failure with preserved ejection fraction Pickup at [facility] Unchanged albuterol (Albuterol (Eqv-Ventolin HFA) 90 mcg/ inh inhalation aerosol) 2 Puffs Inhalation Every 6 hours as needed for Shortness of breath or wheezing COPD with acute exacerbation [email or web address] Unchanged aripiprazole (Abilify 5 mg [...] BS TID and P (more content not included)...NormalHolzer HospitaleGFRon 07-69-2310lWCN48 mL/min/1.73 i4Grjotz>=59Holzer HospitalComment on above:Performed By: #### [id number] #### [facility] [facility] [address] [place], [place] [address]MIC w/ Auto Diffon 22-82-6881Rgvvfdkt Absolute0.1 E9/LNormal 0.0-0.2[facility] Agnes HospitalComment on above:Performed By: #### [id number] #### [facility] [address] [place] [address] 38810Qasygqbzi/100 WBC (Bld)1.6 %Normal0.0-2.0Hol[facility] HospitalComment on above:Performed By: #### [id number] #### [facility] [address] [place] [address] 88198Svb Absolute0.0 E9/LNormal0.0-0.5[facility] Comment on above:Performed By: #### [id number] #### [facility] [address] [place] [address] 19471Iamirzfzsav/100 WBC (Bld)0.1 %Normal0.0-8.0[facility] HospitalComment on above:Performed By: #### [id number] #### [facility] [address] [place], [place] [address]Svqgbjmzhde distribution width (RBC) [Ratio]15.7 %High10.9-14.2 [facility] HospitalComment on above:Performed By: #### [id number] #### [facility] [address] [place] [address] 13112Cghomurnpf (Bld) [Volume fraction]40.0 %Xgaliv99.0-46.0[facility] HospitalComment on above:Performed By: #### [id number] #### [facility] [address] [place] [address] 63596Hymqgnqsva (Bld) [Mass/Vol]13.7 g/eFBkjubl27.0-16.0[facility] HospitalComment on above:Performed By: #### [id number] #### [facility] [address] [place] [address] 67146Wrros Absolute0.4 E9/LLow1.0-4.0[facility] Comment on above:Performed By: #### [id number] #### [facility] [address] [place] [address] 72296Sclqvnxufzo/100 WBC (Bld)4.8 %Low14.0-50.0[facility] HospitalComment on above:Performed By: #### [id number] #### [facility] [address] [place] [address] 00354DGD (RBC) [Entitic mass]31.4 ppGvsqbs78.0-34.0[facility] HospitalComment on above:Performed By: #### [id number] #### [facility] [address] [place] [address] 67412LSDQ (RBC) [Mass/Vol]34.3 g/rSQfwdag87.4-36.0[facility] HospitalComment on above:Performed By: #### [id number] #### [facility] [address] [place] [address] 00036ECC (RBC) [Entitic vol]91.7 xWShizxv10.0-100.0[facility] HospitalComment on above:Performed By: #### [id number] #### [facility] [address] [place] [address] 33455Xnxd Absolute0.1 E9/LLow0.2-1.0[facility] Comment on above:Performed By: #### [id number] #### [facility] [address] [place] [address] 32095Eozerdcrj/100 WBC (Bld)1.8 %Low4.0-14.0[facility] HospitalComment on above:Performed By: #### [id number] #### [facility] [address], [place] [address]Mkiogq Absolute7.4 E9/LNormal2.0-7.5FParkwood Hospital Comment on above:Performed By: #### [id number] #### [facility] [address] [place] [address], [place] [address]Fxmzhq Auto91.7 %High36.0-75.0[facility] Comment on above:Performed By: #### [id number] #### [facility] [address] [place] [address] 33058Sskrfkrc190.0 E9/IFpnbbc207.0-500.0[facility] Comment on above:Performed By: #### [id number] #### [facility] [address] [place] [address] 76674Edpgiplo mean volume (Bld) [Entitic vol]7.4 fLNormal6.4-10.8 [facility] HospitalComment on above:Performed By: #### [id number] #### [facility] [address] [place] [address] 21104GTK8.4 E12/LNormal4.3-5.9[facility] HospitalComment on above:Performed By: #### [id number] #### [facility] [address] [place] [address] 88782WHO5.1 E9/LNormal4.0-11.0[facility] HospitalComment on above:Performed By: #### [id number] #### [facility] [address] [place] [address] 66241THZRLCYFTCwnsses By: Vandana Marinelli on 39-18-9141Qoxyepr [Mass/Vol]217 mg/lTVgwy96 - 99 mg/dLNORTHEASTERN [facility] POC SubsectionComment on above:Result Comment: Notified RN/TAMMY UsernameLEIBACHER, KACYInvalid Interpretation Code [facility] POC SubsectionSodium [Moles/Vol]434243573837 mmol/LInvalid Interpretation CodeNORTHEASTERN [facility] POC SubsectionSodium [Moles/Vol][id number] mmol/LInvalid Interpretation CodeNORTHEASTERN [facility] POC SubsectionCHEMISTRYOrdered By: SYSTEM SYSTEM on 86-58-4441Qkxscns [Mass/Vol]4.5 g/dLNormal3.3 - 5.0 gm/dLRemisol ChemAlbumin/Globulin [Mass ratio] 1.4 {ratio}Normal1.1 - 2.2Remisol ChemALP [Catalytic activity/Vol]62 [iU]/d Pzoeai15 - 98 Int._Unit/LRemisol ChemALT No additional P-5'-P [Catalytic activity/Vol]24 [iU]/dNormal6 - 46 Int._Unit/LRemisol ChemAnion gap [Moles/Vol] 14 mmol/LNormal6 - 16 mEq/LRemisol ChemAST [Catalytic activity/Vol]20 [iU]/d Normal5 - 43 Int._Unit/LRemisol ChemBilirubin [Mass/Vol]0.4 mg/dLNormal0.0 - 1.1 mg/dLRemisol ChemCalcium [Mass/Vol]9.2 mg/dLNormal8.9 - 11.1 mg/dLRemisol Chem Chloride [Moles/Vol]97 mmol/FYly552 - 111 mmol/LRemisol ChemCO2 [Moles/Vol]28 mmol/AAyakjk51 - 31 mmol/LRemisol ChemCreatinine [Mass/Vol]0.7 mg/dLNormal0.5 - 1.3 mg/dLRemisol ChemGFR/1.73 sq M.predicted MDRD (S/P/Bld) [Vol rate/Area]98 mL/min/1.73 h3Daxlfo>=59mL/min/1.73 r4Aaakbhf ChemGlobulin (S) [Mass/Vol]3.3 g/dLNormal1.4 - 4.0 gm/dLRemisol ChemGlucose [Mass/Vol]157 mg/lREsyqiv58 - 199 mg/dLRemisol ChemPotassium [Moles/Vol]4.0 mmol/LNormal3.5 - 5.3 mmol/LRemisol ChemProtein [Mass/Vol]7.8 g/dLNormal6.0 - 7.8 gm/dLRemisol ChemSodium [Moles/Vol]135 mmol/TGgmlfi954 - 145 mmol/LRemisol ChemUrea nitrogen [Mass/Vol] 14 mg/dLNormal5 - 21 mg/dLRemisol ChemUrea nitrogen/Creatinine [Mass ratio]20 mg/reVpkkan48 - 20Remisol ChemCMPon 32-38-8612Tdvzhtl [Mass/Vol]4.5 g/dLNormal 3.3-5.0[facility] HospitalComment on above:Performed By: #### [id number] #### [facility] [address] [place], [place] [address]Vxjdqcn/Globulin [Mass ratio]1.4 {ratio}Normal1.1-2.2FParkwood HospitalComment on above:Performed By: #### [id number] #### [facility] [address] [place], [place] [address]Mio Phos62 Int._Unit/MMjnfbr62-09GnnkzcHolzer Hospital Comment on above:Performed By: #### [id number] #### [facility] [address] [place] [address], [place] [address]NFU61 Int._Unit/LNormal6-46[facility] HospitalComment on above:Performed By: #### [id number] #### [facility] [address] [place], [place] [address]Qxrqx gap [Moles/Vol]14 mmol/LNormal6-16[facility] HospitalComment on above:Performed By: #### [id number] #### [facility] [address] [place] [address], [place] [address]BSN61 Int._Unit/LNormal5-43[facility] HospitalComment on above:Performed By: #### [id number] #### [facility] [address] [place], [place] [address]Lpyx Total0.4 mg/dLNormal0.0-1.1FParkwood Hospital Comment on above:Performed By: #### [id number] #### [facility] [address] [place], [place] [address]EMS/Creat Ratio20 No BveibAuvzik65-74AdfkahHolzer HospitalComment on above:Performed By: #### [id number] #### [facility] [address] [place] [address], [place] [address]Fyujykb [Mass/Vol]9.2 mg/dLNormal8.9-11.1FParkwood HospitalComment on above:Performed By: #### [id number] #### [facility] [address] [place], [place] [address]Xasxhkht [Moles/Vol]97 mmol/MDir817-111BuqekbHolzer HospitalComment on above:Performed By: #### [id number] #### [facility] [address] [place], [place] [address]RS9 [Moles/Vol]28 mmol/VYwzjre00-34EsrixhHolzer Hospital Comment on above:Performed By: #### [id number] #### [facility] [address] [place], [place] [address]Udvwuizzmd [Mass/Vol]0.7 mg/dLNormal0.5-1.3FParkwood HospitalComment on above:Performed By: #### [id number] #### [facility] [address] [place] [address], [place] [address]Dtnpsgqt (S) [Mass/Vol]3.3 g/dLNormal1.4-4.0[facility] HospitalComment on above:Performed By: #### [id number] #### [facility] [address] [place], [place] [address]Leonkpr [Mass/Vol]157 mg/cWLnsevd89-283QuircnHolzer HospitalComment on above:Performed By: #### [id number] #### [facility] [address], [place] [address]Evhbxmynw [Moles/Vol]4.0 mmol/LNormal3.5-5.3FParkwood HospitalComment on above:Performed By: #### [id number] #### [facility] [address] [place] [address], [place] [address]Rzrolkc [Mass/Vol]7.8 g/dLNormal6.0-7.8[facility] HospitalComment on above:Performed By: #### [id number] #### [facility] [address] [place] [address], [place] [address]Xpoilg [Moles/Vol]135 mmol/UUcsyju976-254LmayhzHolzer HospitalComment on above:Performed By: #### [id number] #### [facility] [address] [place] [address], [place] [address]Ehdz nitrogen [Mass/Vol]14 mg/dLNormal5-21[facility] HospitalComment on above:Performed By: #### [id number] #### [facility] [address] [place] [address], [place] [address]Dbaszhkvr Glucose POCon 19-12-8053Gxhvdsr [Mass/Vol]217 mg/dL Wnca82-07QhasltHolzer HospitalComment on above:Result Comment: Notified RN/MDPerformed By: #### [id number] #### [facility] [address] [place] [address], [place] [address]Rdveqqq [Mass/Vol]193 mg/zLSjqk02-40FyrrnzHolzer Hospital Comment on above:Result Comment: Notified RN/MDPerformed By: #### [id number] #### [facility] [address] [place] [address], [place] [address]Gayrorg [Mass/Vol]162 mg/cMTcnu72-37QceuvvHolzer Hospital Comment on above:Result Comment: Notified RN/MDPerformed By: #### [id number] #### [facility] [address] [place] [address], [place] [address]Yvpebbj [Mass/Vol]154 mg/oVVvqx05-58ByhggjHolzer Hospital Comment on above:Result Comment: Notified RN/MDPerformed By: #### [id number] #### [facility] [address] [place], [place] [address]Htwxsn Queryon 07-13-3655Iflrur QueryCoding Query From: Anais Wood RN To: Abisai Kuar III, DO; [...] answer is desired or expected. Thank you!anais 6396NoalHolzer HospitalHEMATOLOGYOrdered By: SYSTEM SYSTEM on 27-47-8539Haowwwdza/100 WBC (Bld) 1.6 %Normal0.0 - 2.0 %Remisol HemeBasophils/Leukocytes Auto (Bld) [Pure # fraction]0.1 E9/LNormal0.0 - 0.2 E9/LRemisol HemeEosinophils (Bld) [#/Vol]0.0 E9/LNormal0.0 - 0.5 E9/LRemisol HemeEosinophils/100 WBC (Bld)0.1 %Normal0.0 - 8.0 %Remisol HemeErythrocyte distribution width (RBC) [Ratio]15.7 %High10.9 - 14.2 %Remisol HemeHematocrit (Bld) [Volume fraction]40.0 %Clhruc47.0 - 46.0 % Remisol HemeHemoglobin (Bld) [Mass/Vol]13.7 g/dKWpqlnx30.0 - 16.0 gm/dLRemisol HemeLymphocytes (Bld) [#/Vol]0.4 E9/LLow1.0 - 4.0 E9/LRemisol Heme Lymphocytes/100 WBC (Bld)4.8 %Low14.0 - 50.0 %Remisol HemeMCH (RBC) [Entitic mass]31.4 vzArpjls40.0 - 34.0 pgRemisol HemeMCHC (RBC) [Mass/Vol]34.3 g/dLNormal 31.4 - 36.0 gm/dLRemisol HemeMCV (RBC) [Entitic vol]91.7 gHBiiagj39.0 - 100.0 fL Remisol HemeMonocytes (Bld) [#/Vol]0.1 E9/LLow0.2 - 1.0 E9/LRemisol Heme Monocytes/100 WBC (Bld)1.8 %Low4.0 - 14.0 %Remisol HemeNeutrophils (Bld) [#/Vol] 7.4 E9/LNormal2.0 - 7.5 E9/LRemisol HemeNeutrophils/100 WBC (Bld)91.7 %High36.0 - 75.0 %Remisol HemePlatelet mean volume (Bld) [Entitic vol]7.4 fLNormal6.4 - 10.8 fLRemisol HemePlatelets (Bld) [#/Vol]274.0 E9/THvjzzn012.0 - 500.0 E9/L Remisol HemeRBC (Bld) [#/Vol]4.4 E12/LNormal4.3 - 5.9 E12/LRemisol HemeWBC corrected for nucl RBC Auto (Bld) [#/Vol]8.1 E9/LNormal4.0 - 11.0 E9/LRemisol HemeInterdisciplinary Note - Case Manageron 99-12-6241Nhtnntqaerkalqksh Note - Case ManagerInterdisciplinary Note - Sensor Technician CRM to room 321 Patient is awake, alert and oriented. Patient is from home lives with her Brother. [place] neighboris [place] ride [place]. Patient PLOF is independent in self care. [...] huddle with hospitalists ECHO today Possible weekend [facility] HospitalComment on above:Result Comment: Electronically Signed By: Clara Gold\.br\Date and Time Signed: 12/28/24 12:02 EDTInterdisciplinary Note - Case ManagerInterdisciplinary Note - Sensor Technician CRM to room 321 Patient is awake, alert and oriented. Patient is from home lives with her Brother. Patient neighboris her ride at [place]. Patient PLOF is independent in self care. [...] get updates at 10 AM huddle with hospitalistsProMedica Toledo HospitalComment on above:Result Comment: Electronically Signed By: Clara Gold\.br\Date and Time Signed: 12/28/24 08:39 EDTUS Lower Extremity Venous Duplex Bilateralon 64-23-5140FX Lower Extremity Venous Duplex BilateralExam Date/Time: 12/27/2024 [...] Sathya Christianson MD Transcribed by: KARSTEN Technologist: SRBNormalHolzer HospitaleGFRon 95-08-8920hIHW07 mL/min/1.73 f2Knyveo>=59Holzer HospitalComment on above:Performed By: #### [id number] #### [facility] [address] [place], [place] [address]NRVtc 21-64-0781Vnsui gap [Moles/Vol]12 mmol/LNormal6-16[facility] HospitalComment on above:Performed By: #### [id number] #### [facility] [address] [place] [address], [place] [address]YQH/Creat Ratio18 No VxhquGbumdx28-28HaqpsiHolzer HospitalComment on above:Performed By: #### [id number] #### [facility] [address] [place] [address], [place] [address]Kngvgkm [Mass/Vol]8.9 mg/dLNormal8.9-11.1FParkwood HospitalComment on above:Performed By: #### [id number] #### [facility] [address] [place] [address], [place] [address]Hsvojxaz [Moles/Vol]100 mmol/CEkf694-780LhkjtkHolzer HospitalComment on above:Performed By: #### [id number] #### [facility] [address] [place], [place] [address]YF3 [Moles/Vol]27 mmol/YAmqlbq84-28YgxibaHolzer Hospital Comment on above:Performed By: #### [id number] #### [facility] [address] [place] [address], [place] [address]Gfzejztxvn [Mass/Vol]0.8 mg/dLNormal0.5-1.3FParkwood HospitalComment on above:Performed By: #### [id number] #### [facility] [address], [place] [address]Tpezzvi [Mass/Vol]147 mg/sNZxfdvc14-428IqarqcHolzer HospitalComment on above:Performed By: #### [id number] #### [facility] [address] [place] [address], [place] [address]Lmdaxngnj [Moles/Vol]3.9 mmol/LNormal3.5-5.3FParkwood HospitalComment on above:Performed By: #### [id number] #### [facility] [address] [place] [address], [place] [address]Tzlacu [Moles/Vol]135 mmol/FReneot534-794QyuemwHolzer HospitalComment on above:Performed By: #### [id number] #### [facility] [address] [place], [place] [address]Ouoi nitrogen [Mass/Vol]14 mg/dLNormal5-21Hol[facility] HospitalComment on above:Performed By: #### [id number] #### [facility] [address] [place] [address], [place] [address]RUMde 48-75-3443Lyx Ctr BNPPassNormalHolzer HospitalComment on above:Performed By: #### [id number] #### [facility] [address], [place] [address]Dnaexjiinfl peptide B (Bld) [Mass/Vol]20 pg/mLNormal5-80[facility] HospitalComment on above:Performed By: #### [id number] #### [facility] [address] [place] [address], [place] [address]LAK w/ Auto Diffon 47-45-0187Xbldaixn Absolute0.1 E9/LNormal 0.0-0.2FParkwood HospitalComment on above:Performed By: #### [id number] #### [facility] [address] [place] [address]Vuscafpvd/100 WBC (Bld)0.8 %Normal0.0-2.0Hol[facility] HospitalComment on above:Performed By: #### [id number] #### [facility] [address] [place] [address] 55[address]Mcq Absolute0.1 E9/LNormal0.0-0.5FParkwood Hospital Comment on above:Performed By: #### [id number] #### [facility] [address] [place] [address]Btpqkrniuxb/100 WBC (Bld)1.0 %Normal0.0-8.0[facility] HospitalComment on above:Performed By: #### [id number] #### [facility] [address] [place], [place] [address]Ueptktmlerk distribution width (RBC) [Ratio]15.6 %High10.9-14.2 [facility] HospitalComment on above:Performed By: #### [id number] #### [facility] [address] [place] [address], [place] [address]Iudnuzkrvy (Bld) [Volume fraction]37.2 %Fyczdj53.0-46.0[facility] HospitalComment on above:Performed By: #### [id number] #### [facility] [address] [place] [address]Jcusmtzvps (Bld) [Mass/Vol]13.2 g/dKNpxwdg68.0-16.0[facility] HospitalComment on above:Performed By: #### [id number] #### [facility] [address] [place] [address] 228[address]Uftay Absolute0.9 E9/LLow1.0-4.0[facility] Comment on above:Performed By: #### [id number] #### [facility] [address] [place] [address]Jngwxljsfid/100 WBC (Bld)12.1 %Low14.0-50.0[facility] HospitalComment on above:Performed By: #### [id number] #### [facility] [address] [place] [address]29[address]CXA (RBC) [Entitic mass]32.2 diEmvntx68.0-34.0[facility] HospitalComment on above:Performed By: #### [id number] #### [facility] [address] [place] [address] 00348IKWF (RBC) [Mass/Vol]35.5 g/wZAcsxci00.4-36.0[facility] HospitalComment on above:Performed By: #### [id number] #### [facility] [address] [place] [address] 28522UCT (RBC) [Entitic vol]90.8 tSOknzul33.0-100.0[facility] HospitalComment on above:Performed By: #### [id number] #### [facility] [address] [place] [address]Xsxh Absolute0.4 E9/LNormal0.2-1.0[facility] Comment on above:Performed By: #### [id number] #### [facility] [address] [place] [address], [place] [address]Ulddvkkcb/100 WBC (Bld)5.3 %Normal4.0-14.0[facility] HospitalComment on above:Performed By: #### [id number] #### [facility] [address] [place] [address], [place] [address]Uhhxvp Absolute5.8 E9/LNormal2.0-7.5FParkwood Hospital Comment on above:Performed By: #### [id number] #### [facility] [address] [place] [address], [place] [address]Qncorf Auto80.8 %High36.0-75.0[facility] Comment on above:Performed By: #### [id number] #### [facility] [address] [place] [address]Pshimyhf216.0 E9/DSdabsr266.0-500.0[facility] Comment on above:Performed By: #### [id number] #### [facility] [address] [place] [address]Mfbrlgyv mean volume (Bld) [Entitic vol]7.2 fLNormal6.4-10.8 [facility] HospitalComment on above:Performed By: #### [id number] #### [facility] [address] [place] [address]11[address]OKC6.1 E12/LLow4.3-5.9[facility] HospitalComment on above:Performed By: #### [id number] #### [facility] [address] [place] [address]GKX1.2 E9/LNormal4.0-11.0[facility] HospitalComment on above:Performed By: #### [id number] #### [facility] [address] [place] [address]JWMHQTDRLHepomwc By: SYSTEM SYSTEM on 66-63-1286Tsloublk HS 27.70 pg/sBHznu33.10 - 27.10 pg/mLRemisol ChemComment on above:Interpretive Data: The 95% CI (Confidence Interval) PPV (Positive Predictive Value) for myocardial infarction in females is 38 pg/mL, in males 51 pg/mL. The results should be used in conjunction withclinical conditions of myocardial infarction. (Access High Sensitivity Troponin I Instructions For Use, [employer], February 2018)Troponin HS28.80 pg/eTBzkb18.10 - 27.10 pg/mLRemisol ChemComment on above:Interpretive Data: The 95% CI (Confidence Interval) PPV (Positive Predictive Value) for myocardial infarction in females is 38 pg/mL, in males 51 pg/mL. The results should be used in conjunction withclinical conditions of myocardial infarction. (Access High Sensitivity Troponin I Instructions For Use, [employer], February 2018)Troponin HS28.80 pg/mQWqeh76.10 - 27.10 pg/mLRemisol ChemComment on above:Interpretive Data: The 95% CI (Confidence Interval) PPV (Positive Predictive Value) for myocardial infarction in females is 38 pg/mL, in males 51 pg/mL. The results should be used in conjunction withclinical conditions of myocardial infarction. ([employer] High Sensitivity Troponin I Instructions For Use, [employer], February 2018)Albumin [Mass/Vol]4.3 g/dLNormal3.3 - 5.0 gm/dLRemisol Chem Albumin/Globulin [Mass ratio]1.4 {ratio}Normal1.1 - 2.2Remisol ChemALP [Catalytic activity/Vol]62 [iU]/fGarttk42 - 98 Int._Unit/LRemisol ChemALT No additional P-5'-P [Catalytic activity/Vol]23 [iU]/dNormal6 - 46 Int._Unit/L Remisol ChemAnion gap [Moles/Vol]12 mmol/LNormal6 - 16 mEq/LRemisol ChemAST [Catalytic activity/Vol]21 [iU]/dNormal5 - 43 Int._Unit/LRemisol ChemBilirubin [Mass/Vol]0.4 mg/dLNormal0.0 - 1.1 mg/dLRemisol ChemBilirubin.direct [Mass/Vol] 0.1 mg/dLNormal0.0 - 0.4 mg/dLRemisol ChemBilirubin.indirect [Mass or moles/Vol] 0.3 mg/dLNormal0.1 - 0.9 mg/dLRemisol ChemCalcium [Mass/Vol]8.9 mg/dLNormal8.9 - 11.1 mg/dLRemisol ChemChloride [Moles/Vol]100 mmol/WWes637 - 111 mmol/LRemisol ChemCO2 [Moles/Vol]27 mmol/INerkdg66 - 31 mmol/LRemisol ChemCreatinine [Mass/Vol]0.8 mg/dLNormal0.5 - 1.3 mg/dLRemisol ChemGFR/1.73 sq M.predicted MDRD (S/P/Bld) [Vol rate/Area]83 mL/min/1.73 v2Pniuaw>=59mL/min/1.73 c1Pvpgswh Chem Globulin (S) [Mass/Vol]3.0 g/dLNormal1.4 - 4.0 gm/dLRemisol ChemGlucose [Mass/Vol]147 mg/xNQbhtzu25 - 199 mg/dLRemisol ChemLactate [Moles/Vol]1.2 mmol/L Normal0.5 [...] g/dLNormal6.0 - 7.8 gm/dL Remisol ChemSodium [Moles/Vol]135 mmol/CSkqjxa577 - 145 mmol/LRemisol ChemTSH Qn 2.71 m[IU]/LNormal0.34 - 5.60 mcIU/mLRemisol ChemUrea nitrogen [Mass/Vol]14 mg/dLNormal5 - 21 mg/dLRemisol ChemUrea nitrogen/Creatinine [Mass ratio]18 mg/mg Jokjrc22 - 20Remisol ChemCHEMISTRYOrdered By: Liv John on 12-27-2024 Natriuretic peptide B (Bld) [Mass/Vol]20 pg/mLNormal5 - 80 pg/mLNORTHE[facility] HemeManSS COAGULATIONOrdered By: Liv John on 94-93-4693tLFU Coag (PPP) [Time]31.4 s Wfqazq25.1 - 36.5 second(s)[facility] Auto CoagComment on above:Interpretive Data: Parameter 15 [...] the same coagulation reagent and instrumentation as [facility]. Currently there are no coagulation studies available worldwide for children to 14 days, andno normal ranges. Heparin therapeutic range (represented by Anti-Factor Xa activity of 0.2 - 0.4 U/mL) corresponds to PTT of 56.6 - 109.0 sec.INR Coag (PPP) [Relative time]0.96 {INR}Invalid Interpretation CodeNORTHEASTERN HEALTH SYSTEM – [facility] Auto CoagComment on above:Interpretive Data: INR results are specifically intended to assess patients stabilized on long-term Anticoagulation therapy suggested INR s Less Intensive Anticoagulation 2.0 3.0 Conventional Range 3.0 4.5PT Coag (PPP) [Time]10.7 sNormal9.4 - 12.5 second(s) [facility] Auto CoagComment on above:Interpretive Data: 15 days [...] the same coagulation reagent and instrumentation as [facility]. Currently there are no coagulation studies available worldwide for children to 14 days, andno normal ranges.Capillary Glucose POCon 37-63-9150Mapmwqk [Mass/Vol]157 mg/dLHigh 55-99Hol[facility] HospitalComment on above:Result Comment: Notified RN/MD Performed By: #### [id number] #### [facility] [address] [place] [address]Aimvzmy [Mass/Vol]87 mg/iXAqwnnd67-63IcmngaHolzer HospitalComment on above:Result Comment: Notified RN/MDPerformed By: #### [id number] #### [facility] [address] [place] [address]ZN Clinical Summaryon [id number] Clinical SummaryED Clinical Summary [address] [address] ED Clinical Summary Person Information Name: CARMEN BLEDSOE/[facility] Age: 64 Years : 1960 Sex: Female Language: [place] PCP: Nigel MSN, CAP SIZER-[employer] OFFSET PRINTER, [place] Marital Status: Single Visit Id: Visit Reason: Wheezing; Shortness of breath; Edema; cp, sob, swelled feet and legs Speciality: Acuity: 2 Enc Type: Inpatient Med Service: Medical Arrival: 12/27/2024 10:31:36 Discharge: LOS: 000 04:47 Checkin: 12/27/2024 10:31:36 Checkout: 12/27/2024 15:18:27 Dispo Type: Admitted as IP to this Hosp EVENTS: Event Name Event Status Request Date/Time [...] 14:13:03 [place] Request 12/27/2024 14:13:45 ADDRESS: [facility] [place] [phone] PHYS DOC NOTES: MEDICAL INFORMATION: Prescriptions Given: [...] 0. Misc Pr (more content not included)...NormalFisher [facility] Medical CenterED Note-Physicianon 09-21-0705RL Note-PhysicianED Note-Physician Basic Information Time Seen: Mendez [...] and Complexity of Problems Differential Diagnosis: [] [facility] Data External documents reviewed: [] My [...] 12/27/24 12:52:00 EDT, STAT, (more content not included)...[facility] HospitalComment on above:Result Comment: Electronically Signed By: Mendez Spain, Whit H\.br\Date and Time Signed: 12/27/2512:59 EDTED Patient Education Noteon [id number] Patient Education NoteED Patient Education NoteNoMer[facility] Patient Summaryon [id number] Patient SummaryED Patient Summary [place] [address] Patient Discharge Instructions Person Information Name: CARMEN [...] [BMI] 50.0-59.9, adult Primary Care Physician: Nigel MSN, CAP SIZ[employer] OFFSET PRINTER, [place] Provider Information Primary Provider: Whit Simms M.D. [employer] Coordinator:None The exam and treatment you received in the Emergency Department were for an urgent problem and are not intended as complete care. It is important that you follow up with a doctor, nurse practitioner,or physician???s orthopaedic physician assistant for ongoing care. If your [...] opioids can be used to help relieve ciddbjzo-bs-touotk pain and are often prescribed following a [...] and Drug Administration (www (more content not included)...[facility] HospitalHEMATOLOGYOrdered By: SYSTEM SYSTEM on 46-19-9044Ceccdkzrc/100 WBC (Bld)0.8 %Normal0.0 - 2.0 %Remisol HemeBasophils/Leukocytes Auto (Bld) [Pure # fraction]0.1 E9/LNormal0.0 - 0.2 E9/LRemisol HemeEosinophils (Bld) [#/Vol]0.1 E9/LNormal0.0 - 0.5 E9/LRemisol HemeEosinophils/100 WBC (Bld)1.0 %Normal0.0 - 8.0 %Remisol HemeErythrocyte distribution width (RBC) [Ratio]15.6 %High10.9 - 14.2 %Remisol HemeHematocrit (Bld) [Volume fraction]37.2 %Qnezxk28.0 - 46.0 %Remisol HemeHemoglobin (Bld) [Mass/Vol]13.2 g/hAXifxtv53.0 - 16.0 gm/dLRemisol HemeLymphocytes (Bld) [#/Vol] 0.9 E9/LLow1.0 - 4.0 E9/LRemisol HemeLymphocytes/100 WBC (Bld)12.1 %Low14.0 - 50.0 %Remisol HemeMCH (RBC) [Entitic mass]32.2 cdBjjwue24.0 - 34.0 pgRemisol HemeMCHC (RBC) [Mass/Vol]35.5 g/cAHrqmki07.4 - 36.0 gm/dLRemisol HemeMCV (RBC) [Entitic vol]90.8 gLCgawcz42.0 - 100.0 fLRemisol HemeMonocytes (Bld) [#/Vol]0.4 E9/LNormal0.2 - 1.0 E9/LRemisol HemeMonocytes/100 WBC (Bld)5.3 %Normal4.0 - 14.0 %Remisol HemeNeutrophils (Bld) [#/Vol]5.8 E9/LNormal2.0 - 7.5 E9/LRemisol Heme Neutrophils/100 WBC (Bld)80.8 %High36.0 - 75.0 %Remisol HemePlatelet mean volume (Bld) [Entitic vol]7.2 fLNormal6.4 - 10.8 fLRemisol HemePlatelets (Bld) [#/Vol] 240.0 E9/KGwdciy494.0 - 500.0 E9/LRemisol HemeRBC (Bld) [#/Vol]4.1 E12/LLow4.3 - 5.9 E12/LRemisol HemeWBC corrected for nucl RBC Auto (Bld) [#/Vol]7.2 E9/L Normal4.0 - 11.0 E9/LRemisol HemeHep Func Panelon 12-61-2086Zertccf [Mass/Vol] 4.3 g/dLNormal3.3-5.0Holzer HospitalComment on above:Performed By: #### [id number] #### [facility] [address] [place], [place] [address]Uhyxuyv/Globulin [Mass ratio]1.4 {ratio}Normal1.1-2.2FParkwood HospitalComment on above:Performed By: #### [id number] #### [facility] [address] [place], [place] [address]Hxv Phos62 Int._Unit/ZZnfhob30-17UshuugHolzer Hospital Comment on above:Performed By: #### [id number] #### [facility] [address] [place], [place] [address]XEP47 Int._Unit/LNormal6-46Holzer HospitalComment on above:Performed By: #### [id number] #### [facility] [address] [place], [place] [address]PPN52 Int._Unit/LNormal5-43Holzer HospitalComment on above:Performed By: #### [id number] #### [facility] [address] [place], [place] [address]Pyns Direct0.1 mg/dLNormal0.0-0.4FParkwood Hospital Comment on above:Performed By: #### [id number] #### [facility] [address] [place], [place] [address]Gvtf Indirect0.3 mg/dLNormal0.1-0.9[facility] Comment on above:Performed By: #### [id number] #### [facility] [address] [place], [place] [address]Tkjx Total0.4 mg/dLNormal0.0-1.1FParkwood Hospital Comment on above:Performed By: #### [id number] #### [facility] [address] [place], [place] [address]Kijagiyo (S) [Mass/Vol]3.0 g/dLNormal1.4-4.0Holzer HospitalComment on above:Performed By: #### [id number] #### [facility] [address] [place], [place] [address]Esyvnir [Mass/Vol]7.3 g/dLNormal6.0-7.8Holzer HospitalComment on above:Performed By: #### [id number] #### [facility] [address] [place], [place] [address]Hahxhppwvvzdpumlo Note - Case Manageron 12-27-2024 Interdisciplinary Note - Case ManagerInterdisciplinary Note - Sensor Technician CRM did chart review Patient was just admitted this afternoon CRM will round for DC needs on 12/28NormalHolzer HospitalComment on above:Result Comment: Electronically Signed By: Clara Gold\.br\Date and Time Signed: 12/27/24 16:41 EDTLactic Acidon 76-62-1657Sppjji Acid Lvl1.2 mmol/L Normal0.5-2.2FParkwood HospitalComment on above:Performed By: #### [id number] #### [facility] [address] [place], [place] [address]Zv Panel InformationOrdered By: ANGPROCESSSERVER MICROBIOLOGY on 76-05-0338Qsiyb Culture CharcoalNo growth at 2 days. Final to follow at 7 days.[facility] HospitalBlood Culture CharcoalNo growth at 2 days. Final to follow at 7 days.[facility] HospitalPT & PTTon 62-63-6431ZQF Coag (PPP) [Relative time]0.96 {INR}Invalid Interpretation CodeHolzer HospitalComment on above:Result Comment: INR results are specifically intended to assess patients stabilized on long-term Anticoagulation therapy suggested INR???s ???Less Intensive Anticoagulation??? 2.0 ??? 3.0 Conventional Range 3.0 ??? 4.5Performed By: #### [id number] #### [facility] [address] [place], [place] [address]KK91.7 second(s)Normal9.4-12.5FParkwood Hospital Comment on above:Result Comment: 15 days [...] the same coagulation reagent and instrumentation as [facility]. Currently there are no coagulation studies available worldwide for children to 14 days, andno normal ranges.Performed By: #### [id number] #### [facility] [address] [employer] [place], [place] [address]ZFV78.4 second(s)Oqagwp91.1-36.5FParkwood Hospital Comment on above:Result Comment: Parameter 15 [...] the same coagulation reagent and instrumentation as [facility]. Currently there are no coagulation studies available worldwide for children to 14 days, andno normal ranges. Heparin therapeutic range (represented by Anti-Factor Xa activity of 0.2 - 0.4 U/mL) corresponds to PTT of 56.6 - 109.0 sec.Performed By: #### [id number] #### [facility] [address], [place] [address]Ebaqqcsyznikvrp 56-53-6268Ggukcacaaaxub.08 ng/mLNormal.00-.50 Holzer HospitalComment on above:Result Comment: <0.5 ng/mL Low [...] within 6 to 24 hours.Performed By: #### [id number] #### [facility] [address] [place], [place] [address]Respiratory Panel by PCRon 89-77-7838YzpmqmpikhNwq detected NormalHolzer HospitalComment on above:Result Comment: Testing was performed using nucleic acid amplification including Influenza A, Influenza A H1, Influenza A H3, Influenza B, RSV A, RSV B, Adenovirus, Human Metapneumovirus, Parainfluenza 1,2,3, and 4, Rhinovirus, Bordetella parapertussis/bronchiseptica, Bordetella holmesii, and Bordetella pertussis. Performed By: #### [id number] #### [facility] [address] [place] [address]. holmesiiNot detectedNormalHolzer HospitalComment on above:Performed By: #### [id number] #### [facility] [address] [place] [address]. parapertussis/bronchisepticaNot detectedNormalNot Detected Holzer HospitalComment on above:Performed By: #### [id number] #### [facility] [address] [place] [address]. pertussisNot detectedNormalNot DetectedHolzer HospitalComment on above:Performed By: #### [id number] #### [facility] [address] [place], [place] [address]Human MetapneumovirusNot detectedNormalHolzer HospitalComment on above:Result Comment: This test result should be correlated with clinical presentations and medical history by a healthcare provider to determine its clinical significance.Performed By: #### [id number] #### [facility] [address] [place], [place] [address]Wxbpgsjkg ANot detectedNormalUnc Health Appalachianer St. Agnes HospitalComment on above:Performed By: #### [id number] #### [facility] [address] [place], [place] [address]Qrwprlukn A (subtype H1)Not detectedNormalUnc Health Appalachianer St. Agnes HospitalComment on above:Performed By: #### [id number] #### [facility] [address] [place], [place] [address]Hpnkplcav A (subtype H3)Not detectedNormalUnc Health Appalachianer St. Agnes HospitalComment on above:Performed By: #### [id number] #### [facility] [address] [place], [place] [address]Ckdkqctvb BNot detectedNormalUnc Health Appalachianer St. Agnes HospitalComment on above:Performed By: #### [id number] #### [facility] [address] [place], [place] [address]Miuscaxfmyrlq 1Not detectedNormalHolzer Hospital Comment on above:Performed By: #### [id number] #### [facility] [address] [place], [place] [address]Ghrycyhjrrzav 2Not detectedNormalHolzer Hospital Comment on above:Performed By: #### [id number] #### [facility] [address] [place], [place] [address]Gfwskgzwwgtgn 3Not detectedNormalHolzer Hospital Comment on above:Performed By: #### [id number] #### [facility] [address] [place], [place] [address]Vqlbfqnkxjpdq 4Not detectedNormalHolzer Hospital Comment on above:Performed By: #### [id number] #### [facility] [address] [place], [place] [address]Pivw Panel Intrl QCPassNormAvita Health SystemComment on above:Performed By: #### [id number] #### [facility] [address] [place], [place] [address]BpvmwrktkcUbq detectedNormAvita Health SystemComment on above:Performed By: #### [id number] #### [facility] [address] [place] [address]GNM ANot detectedNormAvita Health SystemComment on above:Performed By: #### [id number] #### [facility] [address] [place] [address]PWO BNot detectedProMedica Toledo HospitalComment on above:Performed By: #### [id number] #### [facility] [address] [place] [address]SLK With T4fr Reflexon 98-67-8384TPW Qn2.71 m[IU]/LNormal 0.34-5.60Holzer HospitalComment on above:Performed By: #### [id number] #### [facility] [address] [place] [address]Netldytj 0 Hr.on 83-93-7541Jmzwrqmy HS32.40 pg/mLHigh 10.10-27.10Holzer HospitalComment on above:Result Comment: The 95% CI (Confidence Interval) PPV (Positive Predictive Value) for myocardial infa rction in females is 38 pg/mL, in males 51 pg/mL. The results should be used in conjunction with clinical conditions of myocardial infarction. ([employer] High Sensitivity Troponin I Instructions For Use, [employer] [place], February 2018)Performed By: #### [id number] #### [facility] [address] [place] [address]Fzgrixwk 1 Hr.on 94-00-2254Nqnxdsfr HS28.80 pg/mLHigh 10.10-27.10Holzer HospitalComment on above:Order Comment: 1143Result Comment: The 95% CI (Confidence Interval) PPV (Positive Predictive Value) for myocardial infarction in females is 38 pg/mL, in males 51 pg/mL. The results should be used in conjunction with clinical conditions of myocardial infarction. (Access High Sensitivity Troponin I Instructions For Use, [employer], February 2018)Performed By: #### [id number] #### [facility] [address] [place], [place] [address]Rrhbrwpj 3 Hr.on 66-42-2205Ddgsadhe HS28.80 pg/mLHigh 10.10-27.10Holzer HospitalComment on above:Result Comment: The 95% CI (Confidence Interval) PPV (Positive Predictive Value) for myocardial infa rction in females is 38 pg/mL, in males 51 pg/mL. The results should be used in conjunction with clinical conditions of myocardial infarction. ([employer] High Sensitivity Troponin I Instructions For Use, [employer], February 2018)Performed By: #### [id number] #### [facility] [address] [place], [place] [address]Rsofdzyh 6 Hr.on 13-99-8154Gypknpid HS27.70 pg/mLHigh 10.10-27.10Holzer HospitalComment on above:Result Comment: The 95% CI (Confidence Interval) PPV (Positive Predictive Value) for myocardial infa rction in females is 38 pg/mL, in males 51 pg/mL. The results should be used in conjunction with clinical conditions of myocardial infarction. ([employer] High Sensitivity Troponin I Instructions For Use, [employer], February 2018)Performed By: #### [id number] #### [facility] [address] [place], [place] [address]YL Chest Single Viewon 38-70-0534QX Chest Single ViewExam Date/Time: 12/27/2024 11:06 EDT [...] Sathya Christianson MD Transcribed by: KARSTEN Technologist: CCNormalHolzer HospitaleGFRon 20-48-8649iENW38 mL/min/1.73 i0Bfflck>=59Holzer HospitalComment on above:Performed By: #### [id number] #### [facility] [address] [place], [place] [address]Oooznxikmm Visit Summaryon 89-18-7805Ajrmxcwumz Visit Summary Ambulatory Visit Summary CARMEN BLEDSOE :1960 Visit Date:12/19/2024 Ambulatory Visit Instructions Your Diagnosis Type 2 diabetes mellitus with morbid obesity Shortness of breath on exertion Benign hypertension Chronic insomnia Heart failure with preserved ejection fraction Obstructive sleep apnea History of alcohol abuse Morbid obesity with BMI of 50.0-59.9, adult BMI 50.0-59.9, adult Your Care Team Attending Physician - Nigel SMITH, DARLEEN-[place] VILLATORO Primary Care Physician - Nigel SMITH, DARLEEN-[place] VILLATORO This Is Your Medications List Contact [...] With: Rick Hernandez PA-C Where: [facility] Tuesday 1:40 PM EDT With: Nigel SMITH, [place] ESPINO Where: [place] [address] [phone]- You Need to Schedule the Following Appointments Follow Up with Nigel SMITH, SRINIVAS, Paris Hamilton When: In 2 weeks Comments: chronic care Where: [address] [place] [phone] You Need to Complete the Following Microalbumin [...] (Nebulizer Machine) See instru (more content not included)...[facility] HospitalCHEMISTRYOrdered By: SYSTEM SYSTEM on 96-24-8975Wuxpqul [Mass/Vol]4.4 g/dLNormal3.3 - 5.0 gm/dLRemisol Chem Albumin/Globulin [Mass ratio]1.5 {ratio}Normal1.1 - 2.2Remisol ChemALP [Catalytic activity/Vol]60 [iU]/aAehpwt64 - 98 Int._Unit/LRemisol ChemALT No additional P-5'-P [Catalytic activity/Vol]31 [iU]/dNormal6 - 46 Int._Unit/L Remisol ChemAnion gap [Moles/Vol]13 mmol/LNormal6 - 16 mEq/LRemisol ChemAST [Catalytic activity/Vol]29 [iU]/dNormal5 - 43 Int._Unit/LRemisol ChemBilirubin [Mass/Vol]0.4 mg/dLNormal0.0 - 1.1 mg/dLRemisol ChemCalcium [Mass/Vol]9.4 mg/dL Normal8.9 - 11.1 mg/dLRemisol ChemChloride [Moles/Vol]95 mmol/QIyw771 - 111 mmol/LRemisol ChemCO2 [Moles/Vol]30 mmol/QRztxbi70 - 31 mmol/LRemisol Chem Creatinine [Mass/Vol]0.7 mg/dLNormal0.5 - 1.3 mg/dLRemisol ChemGFR/1.73 sq M.predicted MDRD (S/P/Bld) [Vol rate/Area]98 mL/min/1.73 a3Xkhimj>=59mL/min/1.73 c8Hkmteyz ChemGlobulin (S) [Mass/Vol]2.9 g/dLNormal1.4 - 4.0 gm/dLRemisol Chem Glucose [Mass/Vol]88 mg/pXXvgrrp54 - 199 mg/dLRemisol ChemPotassium [Moles/Vol] 4.0 mmol/LNormal3.5 - 5.3 mmol/LRemisol ChemProtein [Mass/Vol]7.3 g/dLNormal6.0 - 7.8 gm/dLRemisol ChemSodium [Moles/Vol]134 mmol/CHet913 - 145 mmol/LRemisol ChemUrea nitrogen [Mass/Vol]8 mg/dLNormal5 - 21 mg/dLRemisol ChemUrea nitrogen/Creatinine [Mass ratio]11 mg/viJbzvlc64 - 20Remisol ChemCHEMISTRY Ordered By: Katya Preciado on 13-83-4412BqJ0y (Bld) [Mass fraction]6.1 %High <=5.9%[facility] ChemAutoSSCMPon 96-89-2873Xuxrvsj [Mass/Vol]4.4 g/dLNormal3.3-5.0 Hol[facility] HospitalComment on above:Performed By: #### [id number] #### [facility] [address] [place], [place] [address]Intqqxz/Globulin [Mass ratio]1.5 {ratio}Normal1.1-2.2FParkwood HospitalComment on above:Performed By: #### [id number] #### [facility] [address] [place], [place] [address]Eww Phos60 Int._Unit/TAsajgx99-15OcciotHolzer Hospital Comment on above:Performed By: #### [id number] #### [facility] [address] [place], [place] [address]XAR91 Int._Unit/LNormal6-46Holzer HospitalComment on above:Performed By: #### [id number] #### [facility] [address] [place], [place] [address]Cxjqx gap [Moles/Vol]13 mmol/LNormal6-16Holzer HospitalComment on above:Performed By: #### [id number] #### [facility] [address] [place], [place] [address]ITT35 Int._Unit/LNormal5-43Holzer HospitalComment on above:Performed By: #### [id number] #### [facility] [address] [place], [place] [address]Bugs Total0.4 mg/dLNormal0.0-1.1FParkwood Hospital Comment on above:Performed By: #### [id number] #### [facility] [address] [place], [place] [address]OJB/Creat Ratio11 No SpyqoNzejje41-28LcavxzHolzer HospitalComment on above:Performed By: #### [id number] #### [facility] [address] [place], [place] [address]Qgmyaug [Mass/Vol]9.4 mg/dLNormal8.9-11.1FParkwood HospitalComment on above:Performed By: #### [id number] #### [facility] [address] [place], [place] [address]Jyologsh [Moles/Vol]95 mmol/TCsx209-344ZccmukHolzer HospitalComment on above:Performed By: #### [id number] #### [facility] [address] [place], [place] [address]UI4 [Moles/Vol]30 mmol/RKpjcxt42-98AevoqqHolzer Hospital Comment on above:Performed By: #### [id number] #### [facility] [address] [place], [place] [address]Ngwhnisasa [Mass/Vol]0.7 mg/dLNormal0.5-1.3FParkwood HospitalComment on above:Performed By: #### [id number] #### [facility] [address] [place], [place] [address]Exivdtpg (S) [Mass/Vol]2.9 g/dLNormal1.4-4.0Holzer HospitalComment on above:Performed By: #### [id number] #### [facility] [address] [place], [place] [address]Qapzuya [Mass/Vol]88 mg/tABxlsap96-687EexnyxHolzer HospitalComment on above:Performed By: #### [id number] #### [facility] [address] [place], [place] [address]Bboalvhxh [Moles/Vol]4.0 mmol/LNormal3.5-5.3FParkwood HospitalComment on above:Performed By: #### [id number] #### [facility] [address] [place], [place] [address]Jssivjz [Mass/Vol]7.3 g/dLNormal6.0-7.8Holzer HospitalComment on above:Performed By: #### [id number] #### [facility] [address] [place], [place] [address]Xvpcfp [Moles/Vol]134 mmol/JRcd071-039PrfidoHolzer HospitalComment on above:Performed By: #### [id number] #### [facility] [address] [place], [place] [address]Uisw nitrogen [Mass/Vol]8 mg/dLNormal5-21Holzer HospitalComment on above:Performed By: #### [id number] #### [facility] [address] [place], [place] [address]Foaphw Medicine Office/Clinic Noteon 21-93-8626Xodyxa Medicine Office/Clinic NoteFapaul a. [facility] Medicine Office/Clinic Note Chief Complaint Patient presents [...] pressure. Impaired diastolic relaxation. List of Providers: Clerical Adviser: Rick Hernandez PA-C Salesperson Corsets: Dr Phillip Orthopaedics: Dr Martinez LABS Cr/eGFR: [...] 01/01/2025 2:00 PM Scheduled [place]: [place], [address] Phone: [phone] Fax: [phone] The patient is presenting with shortness of [...] and possibly loss of l (more contentnot included)...[facility] HospitalComment on above:Result Comment: Electronically Signed By: Nigel MSN, CAP SIZER-PHOTO OFFSET PRINTERParis\.br\Date and Time Signed: 12/19/24 16:05 KFKEmiM8rhu 57-03-2901QuF0c (Bld) [Mass fraction]6.1 %High<=5.9Holzer HospitalComment on above: Performed By: #### [id number] #### [facility] [address] [place] [address]GZ Chest 2 Viewson 23-30-9282VU Chest 2 ViewsExam Date/Time: 12/19/2024 13:31 EDT [...] Mark Stevens MD Transcribed by: KARSTEN Technologist: RAMSEYGalion HospitaleGFRon 57-81-6509vIXD37 mL/min/1.[address] u[address]kdvg>=[address] Agnes HospitalComment on above:Performed By: #### [id number] #### [facility] [address] [place], [place] [address]Rqsqzrnyyt Visit Summaryon 27-88-0042Hnbiwgyaev Visit Summary Ambulatory Visit Summary CARMEN BLEDSOE :1960 Visit Date:11/27/2024 Ambulatory Visit Instructions Your Diagnosis Type 2 diabetes mellitus with morbid obesity Bilateral leg edema Shortness of breath on exertion Alcohol problem drinking Cigarette smoker Morbid obesity, Morbid (severe) obesity due to excess calories BMI 50.0-59.9, adult Your Care Team Attending Physician - Nigel SMITH, DARLEEN-[place] VILLATORO Primary Care Physician - Nigel SMITH, DARLEEN-[place] VILLATORO This Is Your Medications List albuterol [...] EDT With: Nigel SMITH, DARLEEN-[place] VILLATORO Where: [facility] [place] [address] [place] [address]- Tuesday 2:00 PM EDT With: Rick Hernandez PA-C Where: [facility] You Need to Schedule the Following Appointments Follow Up with Nigel SMITH, [place] ESPINO When: Only if needed Where: [address] [place] [phone] Medications What How Much When Why Instructions New albuterol (Albuterol (Eqv-Ventolin HFA) 90 mcg/ inh inhalation aerosol) 2 Puffs Inhalation Every 6 hours as needed for Shortness of breath or wheezing Refills: 3 Pickup at [facility] #86990 New fluticasone-salmeterol (Advair Diskus 250 mcg-50 mcg inhalation powder) 1 Puffs Inhalation 2 times a day Duration: 30 Days Pickup at [facility] #39548 Unchanged glipiZIDE (glipiZIDE 2.5 mg ER Tab) 1 Tablets By Mouth Every day [facility] Unchanged rosuvastatin (Crestor 40 mg Tab) 1 Tablets By Mouth Every day Mixed hyperlipidemia Pickupat [facility] #34686 Unchanged aripiprazole (Abilify 5 mg Tab) 1 [...] Every day Contact prescr (more content not included)...[facility] Office/Clinic Noteon 97-30-0247Lytdsn Medicine Office/Clinic NoteFami Medicine Office/Clinic Note Chief [...] medical options pending insurance approval for the [facility]. Preparation for potential bariatric intervention continues [...] again. Will continue following up with the network engineer administrator. Ordered: Current tobacco smoker 1034F Depression Screening [...] that time she is already seeing the open claims representative and they have ordered the PFT if [...] (F10.90: Alcohol u (more content not included)... [facility] HospitalComment on above:Result Comment: Electronically Signed By: Nigel SMITH, [place] ESPINO\.br\Date and Time Signed: 11/27/24 17:35 EDTAmbulatory Visit Summaryon 73-31-5379Bhasafdmgm Visit SummaryAmbulatory Visit Summary CARMEN BLEDSOE :1960 [...] With: Rick Hernandez PA-C Where: [facility] Tuesday 12:40 PM EDT With: Nigel SMITH, [place] ESPINO Where: [facility] [place] [address] [place] [address]- You Need to Schedule the Following Appointments Follow Up with Nigel SMITH, [place] ESPINO When: In 3 months Comments: chronic care Where: [address] [place] [phone] Someone Will Contact You Regarding These Appointments [facility] External Ambulatory Referral, Surgery, Kevan Bariatric surgery, [...] asthma Unchanged pantoprazole (Pantopr (more content not included)...[facility] HospitalCHEMISTRYOrdered By: SYSTEM SYSTEM on 23-13-8972Thcnmdm [Mass/Vol] 4.3 g/dLNormal3.3 - 5.0 gm/dLRemisol ChemAlbumin/Globulin [Mass ratio]1.5 {ratio}Normal1.1 - 2.2Remisol ChemALP [Catalytic activity/Vol]54 [iU]/lOowrha57 - 98 Int._Unit/LRemisol ChemALT No additional P-5'-P [Catalytic activity/Vol]18 [iU]/dNormal6 - 46 Int._Unit/LRemisol ChemAnion gap [Moles/Vol]11 mmol/LNormal6 - 16 mEq/LRemisol ChemAST [Catalytic activity/Vol]18 [iU]/dNormal5 - 43 Int._Unit/LRemisol ChemBilirubin [Mass/Vol]0.4 mg/dLNormal0.0 - 1.1 mg/dLRemisol ChemCalcium [Mass/Vol]9.1 mg/dLNormal8.9 - 11.1 mg/dLRemisol ChemChloride [Moles/Vol]98 mmol/IWzq908 - 111 mmol/LRemisol ChemCO2 [Moles/Vol]27 mmol/L Zmtdqc45 - 31 mmol/LRemisol ChemCreatinine [Mass/Vol]0.7 mg/dLNormal0.5 - 1.3 mg/dLRemisol CuiqqGMC13 mL/min/1.73 b0Ohgnhv>=59mL/min/1.73 i2Ifhnmod Chem Globulin (S) [Mass/Vol]2.8 g/dLNormal1.4 - 4.0 gm/dLRemisol ChemGlucose [Mass/Vol]95 mg/jWAosawe94 - 199 mg/dLRemisol ChemPotassium [Moles/Vol]4.0 mmol/LNormal3.5 - 5.3 mmol/LRemisol ChemProtein [Mass/Vol]7.1 g/dLNormal6.0 - 7.8 gm/dLRemisol ChemSodium [Moles/Vol]132 mmol/CTus138 - 145 mmol/LRemisol Chem Urea nitrogen [Mass/Vol]12 mg/dLNormal5 - 21 mg/dLRemisol ChemUrea nitrogen/Creatinine [Mass ratio]17 mg/xsPitkrc25 - 20Remisol ChemCMPon 33-66-8874Eisqmgb [Mass/Vol]4.3 g/dLNormal3.3-5.0[facility] Comment on above:Performed By: #### [id number] #### [facility] [address] [place], [place] [address]Ejelwhd/Globulin (S) [Mass conc ratio]1.0Zmcgxy9.1-2.2FParkwood HospitalComment on above:Performed By: #### [id number] #### [facility] [address] [place], [place] [address]ZNR [Catalytic activity/Vol]54 Int._Unit/DAxcnwv65-58GofernHolzer HospitalComment on above:Performed By: #### [id number] #### [facility] [address] [place], [place] [address]JQM No additional P-5'-P [Catalytic activity/Vol]18 Int._Unit/L Normal6-46Holzer HospitalComment on above:Performed By: #### [id number] #### [facility] [address] [place], [place] [address]Ivtgq gap [Moles/Vol]11 mmol/LNormal6-16Holzer HospitalComment on above:Performed By: #### [id number] #### [facility] [address] [place], [place] [address]HIM [Catalytic activity/Vol]18 Int._Unit/LNormal5-43Holzer HospitalComment on above:Performed By: #### [id number] #### [facility] [address] [place], [place] [address]Sjnleuljz [Mass/Vol]0.4 mg/dLNormal0.0-1.1FParkwood HospitalComment on above:Performed By: #### [id number] #### [facility] [address] [place], [place] [address]Rwuulwz [Mass/Vol]9.1 mg/dLNormal8.9-11.1FParkwood HospitalComment on above:Performed By: #### [id number] #### [facility] [address] [place], [place] [address]Crejurzt [Moles/Vol]98 mmol/YCqo836-947CywxxzHolzer HospitalComment on above:Performed By: #### [id number] #### [facility] [address] [place] [address], [place] [address]ML5 [Moles/Vol]27 mmol/SXauzno33-95NgxlydHolzer Hospital Comment on above:Performed By: #### [id number] #### [facility] [address] [place], [place] [address]Llcvupugmu [Mass/Vol]0.7 mg/dLNormal0.5-1.3FParkwood HospitalComment on above:Performed By: #### [id number] #### [facility] [address] [place], [place] [address]Xzdktyop (S) [Mass/Vol]2.8 g/dLNormal1.4-4.0Holzer HospitalComment on above:Performed By: #### [id number] #### [facility] [address] [place] [address], [place] [address]Gpyqoep [Mass/Vol]95 mg/lASnpwtm28-203NhmukcHolzer HospitalComment on above:Performed By: #### [id number] #### [facility] [address] [place], [place] [address]Hlpskbwbp [Moles/Vol]4.0 mmol/LNormal3.5-5.3FParkwood HospitalComment on above:Performed By: #### [id number] #### [facility] [address] [place], [place] [address]Pnhtmuy [Mass/Vol]7.1 g/dLNormal6.0-7.8Holzer HospitalComment on above:Performed By: #### [id number] #### [facility] [address] [place], [place] [address]Nmnxrw [Moles/Vol]132 mmol/QStb272-667WrhcfmHolzer HospitalComment on above:Performed By: #### [id number] #### [facility] [address] [place] [address]Gktm nitrogen [Mass/Vol]12 mg/dLNormal5-21Holzer HospitalComment on above:Performed By: #### [id number] #### [facility] [address] [place] [address]Vgov nitrogen/Creatinine [Mass ratio]17 No StgccPszwjg34-49 [facility] HospitalComment on above:Performed By: #### [id number] #### [facility] [address] [place] [address]Lvocro Medicine Office/Clinic Noteon 02-44-1302Uenoxy Medicine Office/Clinic NoteFapaul a. [facility] Medicine Office/Clinic Note Chief Complaint Desire for gastric sleeve surgery and management of associated health issues. [facility] Staff Patient is here for follow up [...] pressure. Impaired diastolic relaxation. List of Providers: Clerical Adviser: Rick Hernandez PA-C Salesperson Corsets: Dr Phillip Orthopaedics: Dr Martinez LABS Cr/eGFR: [...] AM Scheduled Provider: Rick Hernandez PA-C [address] [place], [address] Phone: [phone] Fax: [phone] The patient is presenting with concerns surrounding [...] Denies current e (more content not included)...Normal [facility] HospitalComment on above:Result Comment: Electronically Signed By: Nigel SMITH, CAP SIZER-IRVING, [place] Hamilton\.sonia\Date and Time Signed: 09/12/24 15:31 EDTeGFRon 51-56-0244kCLQ44 mL/min/1.73 d5Lvijrh>=59DeamrWestern Maryland Hospital CenterComment on above:Performed By: #### [id number] #### [facility] [address] [place], [place] [address]Pujanoma Letteron 39-78-8245Kzixrnjb LetterProvider Letter September 04, 2024 CARMEN BLEDSOE [address] [facility] [place] [address] : 1960 Dear Carmen, We have been trying to reach you with no success. Please call us at [phone] in regards to rescheduling your Colonoscopy. Thank you for your prompt attention to this matter. Sincerely, [facility] CenterAmbulatory Visit Summaryon 00-84-9375Fgezxlibzh Visit SummaryAmbulatory Visit Summary CARMEN BLEDSOE :1960 Visit Date:07/18/2024 Ambulatory Visit Instructions Your Diagnosis Type 2 diabetes mellitus with morbid obesity Alcohol problem drinking Bilateral leg edema Morbid obesity, Morbid (severe) obesity due to excess calories BMI 50.0-59.9, adult Your Care Team Attending Physician - Nigel MSN, CAP SIZER-PHOTO OFFSET PRINTERParis Primary Care Physician - Nigel MSN, CAP SIZER-PHOTO OFFSET PRINTERParis This Is Your Medications List semaglutide (Ozempic [...] EST With: Nigel SMITH, Paris ESPINO Where: [facility] [place] [address] [place] [address]- Tuesday 11:00 AM EST With: Where: [facility] Tuesday 11:00 AM EDT With: Rick Hernandez PA-C Where: [facility] [place] You Need to Schedule the Following Appointments Follow Up with Nigel SMITH, Paris ESPINO When: Only if needed Comments: keep next month appt Where: [address] [place] [phone] Medications What How Much When Why Instructions New semaglutide (Ozempic 2 mg/ 3 mL (0.25 mg or 0.5 mg dose) subcutaneous solution) 0.5 Milligram Subcutaneous Every week Type 2 diabetes mellitus with morbid obesity Pickup at [facility]772 Unchanged albuterol (albuterol 0.083% Inh Rochelle 3 [...] PRN dx E11.9 Co (more content not included)...[facility] Medicine Office/Clinic Noteon 40-22-8390Ulspbv Medicine Office/Clinic NoteFapaul a. [facility] Medicine Office/Clinic Note Chief Complaint The patient [...] qWeek, # 2 EA, Refills(s) 0, [id number], 168, cm, 07/18/24 11:59:00 EST, Height/Length Dosing, [...] Nigel SMITH, DARLEEN-Paris VILLATORO Only if needed [address] [place] [phone] Additional Instructions: keep next month appt Patient [...] syndrome Right hip p (more content not included)...[facility] Comment on above:Result Comment: Electronically Signed By: Nigel SMITH, CAP SIZER-Paris VILLATORO\.br\Date and Time Signed: 07/18/24 12:22 JUJBnkS1pzy 88-17-5867RuW7f (Bld) [Mass fraction]5.7 %Normal<=5.9Holzer HospitalComment on above:Performed By: #### [id number] #### [facility] [address] [place] [address]Yzgxvbrpwk Visit Summaryon 77-01-3008Byqkyuviur Visit Summary Ambulatory Visit Summary CARMEN BLEDSOE :1960 Visit Date:07/13/2024 Ambulatory Visit Instructions Your Care Team Attending Physician - Nigel [...] Tuesday 12:00 PM EST With: Nigel SMITH, Paris ESPINO Where: [address] [address] Tuesday 1:00 PM EST With: Nigel MSN, CAP SIZER-PHOTO OFFSET PRINTER, Paris Hamilton Where: [facility] [place] [address] [place] [address]- Tuesday 11:00 AM EST With: Where: [facility] Tuesday 11:00 AM EDT With: David LEONARD, Rick Gipson Where: [facility] [place] Medications What How Much When Why Instructions [...] problem that you are (more content not included)...[facility] HospitalAmbulatory Visit SummaryAmbulatory Visit Summary CARMEN BLEDSOE [...] Team Primary Care Physician - Nigel MSN, CAP SIZER-PHOTO OFFSET PRINTER, Paris Hamilton This Is Your Medications List [...] EST With: Nigel SMITH, DARLEEN-Paris VILLATORO Where: [facility] [address] [place] [address]- Tuesday 1:00 PM EST With: Nigel SMITH, CAP SIZER-[place] VILLATORO Where: [facility] [address] [place] [address]- Tuesday 11:00 AM EST With: Where: [facility] Tuesday 11:00 AM EDT With: Rick Hernandez PA-C Where: [facility] [place] You Need to Complete the Following Wzmct-0-Wjkejwllopg, Blood, Routine collect, 11/02/23, Order for future [...] future visit, Lab Collec (more content not included)...NormalHolzer HospitalBNPon 32-13-9020Yep Ctr BNPPassNormalHolzer HospitalComment on above: Performed By: #### [id number] #### [facility] [address] [place], [place] [address]Aolyqftmyvd peptide B (Bld) [Mass/Vol]39 pg/mLNormal5-80Holzer HospitalComment on above:Performed By: #### [id number] #### [facility] [address] [place] [address]BVR w/ Auto Diffon 61-77-1543Bqeifzavx/100 WBC (Bld)0.7 %Normal 0.0-2.0Holzer HospitalComment on above:Performed By: #### [id number] #### [facility] [address] [place] [address]Wwogoovev/Leukocytes Auto (Bld) [Pure # fraction]0.0 E9/LNormal 0.0-0.2FParkwood HospitalComment on above:Performed By: #### [id number] #### [facility] [address] [place] [address]Sudzpsphuxh (Bld) [#/Vol]0.1 E9/LNormal0.0-0.5FParkwood HospitalComment on above:Performed By: #### [id number] #### [facility] [address] [place] [address]Ijjvibupydg/100 WBC (Bld)1.1 %Normal0.0-8.0Hol[facility] HospitalComment on above:Performed By: #### [id number] #### [facility] [address] [place] [address]Nradudpjwqx distribution width (RBC) [Ratio]15.5 %High10.9-14.2 [facility] HospitalComment on above:Performed By: #### [id number] #### [facility] [address] [place] [address]Qcrpqidhpz (Bld) [Volume fraction]41.1 %Cslkzt80.0-46.0Hol[facility] HospitalComment on above:Performed By: #### [id number] #### [facility] [address] [place] [address]Hjacnelsfe (Bld) [Mass/Vol]14.2 g/cGWbojle46.0-16.0Hol[facility] HospitalComment on above:Performed By: #### [id number] #### [facility] [address] [place] [address]Evrfzaghgwl (Bld) [#/Vol]1.2 E9/LNormal1.0-4.0Holzer HospitalComment on above:Performed By: #### [id number] #### [facility] [address] [place] [address]Wwtxwrjspzs/100 WBC (Bld)18.3 %Mpylte22.0-50.0Holzer HospitalComment on above:Performed By: #### [id number] #### [facility] [address] [place] [address]RFP (RBC) [Entitic mass]32.3 ugVguhjy46.0-34.0Hol[facility] HospitalComment on above:Performed By: #### [id number] #### [facility] [address] [place] [address]YTGA (RBC) [Mass/Vol]34.5 g/qDYlfgcv73.4-36.0Holzer HospitalComment on above:Performed By: #### [id number] #### [facility] [address] [place] [address]WPU (RBC) [Entitic vol]93.7 yGXvhzwt17.0-100.0Holzer HospitalComment on above:Performed By: #### [id number] #### [facility] [address] [place] [address]Pjawueizw (Bld) [#/Vol]0.4 E9/LNormal0.2-1.0Holzer HospitalComment on above:Performed By: #### [id number] #### [facility] [address] [place] [address]Ithvjwicoor (Bld) [#/Vol]4.8 E9/LNormal2.0-7.5FParkwood HospitalComment on above:Performed By: #### [id number] #### [facility] [address] [place] [address]Auupcvlbied/100 WBC (Bld)74.5 %Atuoqr37.0-75.0Holzer HospitalComment on above:Performed By: #### [id number] #### [facility] [address] [place] [address]Ejxpiazs mean volume (Bld) [Entitic vol]8.3 fLNormal6.4-10.8 Holzer HospitalComment on above:Performed By: #### [id number] #### [facility] [address] [place] [address]Kebewjlmz (Bld) [#/Vol]239.0 E9/TSlgslf462.0-500.0Holzer HospitalComment on above:Performed By: #### [id number] #### [facility] [address] [place] [address]ZHA (Bld) [#/Vol]4.4 E12/LNormal4.3-5.9Holzer HospitalComment on above:Performed By: #### [id number] #### [facility] [address] [place] [address]LWT corrected for nucl RBC Auto (Bld) [#/Vol]6.5 E9/LNormal 4.0-11.0Holzer HospitalComment on above:Performed By: #### [id number] #### [facility] [address] [place] [address]IFASVWKGOWhpttua By: SYSTEM SYSTEM on 85-20-7894Xpmtwkb [Mass/Vol]4.3 g/dLNormal3.3 - 5.0 gm/dLRemisol ChemAlbumin/Globulin [Mass ratio] 1.3 {ratio}Normal1.1 - 2.2Remisol ChemALP [Catalytic activity/Vol]66 [iU]/d Boddty95 - 98 Int._Unit/LRemisol ChemALT No additional P-5'-P [Catalytic activity/Vol]23 [iU]/dNormal6 - 46 Int._Unit/LRemisol ChemAnion gap [Moles/Vol] 12 mmol/LNormal6 - 16 mEq/LRemisol ChemAST [Catalytic activity/Vol]18 [iU]/d Normal5 - 43 Int._Unit/LRemisol ChemBilirubin [Mass/Vol]0.5 mg/dLNormal0.0 - 1.1 mg/dLRemisol ChemCalcium [Mass/Vol]9.8 mg/dLNormal8.9 - 11.1 mg/dLRemisol Chem Chloride [Moles/Vol]100 mmol/EDjw321 - 111 mmol/LRemisol ChemCholesterol [Mass/Vol]163 mg/hTNopece618 - 200 mg/dLRemisol ChemCholesterol in HDL [Mass/Vol]47 mg/dLInvalid Interpretation CodeRemisol ChemComment on above:Result Comment: '>= 60 LOW RISK' '<= 40 HIGH RISK'Cholesterol in LDL [Mass/Vol]97 mg/dLNormal<=129mg/dLRemisol ChemCholesterol in VLDL [Mass/Vol]42 mg/dLHigh7 - 40 mg/dLRemisol ChemCO2 [Moles/Vol]27 mmol/FGvubet50 - 31 mmol/LRemisol ChemCobalamin (Vitamin B12) [Mass/Vol]191 pg/kPIpmklc48 - 1500 pg/mLRemisol ChemCreatinine [Mass/Vol]0.7 mg/dLNormal0.5 - 1.3 mg/dLRemisol DauylKRK79 mL/min/1.73 k9Biydou>=59mL/min/1.73 m5Cdctnbg ChemGlobulin (S) [Mass/Vol]3.2 g/dLNormal1.4 - 4.0 gm/dLRemisol Chem Glucose [Mass/Vol]88 mg/eKXxalki36 - 199 mg/dLRemisol ChemPotassium [Moles/Vol] 4.3 mmol/LNormal3.5 - 5.3 mmol/LRemisol ChemProtein [Mass/Vol]7.5 g/dLNormal6.0 - 7.8 gm/dLRemisol ChemSodium [Moles/Vol]135 mmol/XVpnpvq921 - 145 mmol/LRemisol ChemTriglyceride [Mass/Vol]208 mg/dLHigh<=149mg/dLRemisol ChemUrea nitrogen [Mass/Vol]14 mg/dLNormal5 - 21 mg/dLRemisol ChemUrea nitrogen/Creatinine [Mass ratio]20 mg/cjPcwzde43 - 20Remisol ChemCHEMISTRYOrdered By: Alfredo Pisano on 58-42-2345Qwhqwoxpmwg peptide B (Bld) [Mass/Vol]39 pg/mLNormal5 - 80 pg/mLNORTHEASTERN HEALTH SYSTEM – [facility] HemeWaltonSSPon 15-35-0936Ckanfpr [Mass/Vol]4.3 g/dLNormal3.3-5.0Holzer HospitalComment on above:Performed By: #### [id number] #### [facility] [address] [place], [place] [address]Ardufqa/Globulin (S) [Mass conc ratio]1.7Cyjnpi6.1-2.2FParkwood HospitalComment on above:Performed By: #### [id number] #### [facility] [address] [place], [place] [address]ITC [Catalytic activity/Vol]66 Int._Unit/FGyzrxm89-60UmhfidHolzer HospitalComment on above:Performed By: #### [id number] #### [facility] [address] [place], [place] [address]XHW No additional P-5'-P [Catalytic activity/Vol]23 Int._Unit/L Normal6-46Holzer HospitalComment on above:Performed By: #### [id number] #### [facility] [address] [place], [place] [address]Gwvsa gap [Moles/Vol]12 mmol/LNormal6-16Holzer HospitalComment on above:Performed By: #### [id number] #### [facility] [address], [place] [address]LNU [Catalytic activity/Vol]18 Int._Unit/LNormal5-43Holzer HospitalComment on above:Performed By: #### [id number] #### [facility] [address] [place] [address], [place] [address]Jzcogkjkg [Mass/Vol]0.5 mg/dLNormal0.0-1.1FParkwood HospitalComment on above:Performed By: #### [id number] #### [facility] [address] [place] [address], [place] [address]Gchjvkr [Mass/Vol]9.8 mg/dLNormal8.9-11.1FParkwood HospitalComment on above:Performed By: #### [id number] #### [facility] [address] [place] [address], [place] [address]Khqoasyw [Moles/Vol]100 mmol/KHjj492-514JxmjgsHolzer HospitalComment on above:Performed By: #### [id number] #### [facility] [address] [place], [place] [address]XD4 [Moles/Vol]27 mmol/VSewsdl26-79HryxaoHolzer Hospital Comment on above:Performed By: #### [id number] #### [facility] [address] [place] [address]Wxbfqbfxuf [Mass/Vol]0.7 mg/dLNormal0.5-1.3FParkwood HospitalComment on above:Performed By: #### [id number] #### [facility] [address] [place], [place] [address]Uhttnkvh (S) [Mass/Vol]3.2 g/dLNormal1.4-4.0Holzer HospitalComment on above:Performed By: #### [id number] #### [facility] [address] [place] [address], [place] [address]Uwijjyj [Mass/Vol]88 mg/hCVsdfda95-734VpbdfgHolzer HospitalComment on above:Performed By: #### [id number] #### [facility] [address], [place] [address]Nkatooren [Moles/Vol]4.3 mmol/LNormal3.5-5.3FParkwood HospitalComment on above:Performed By: #### [id number] #### [facility] [address] [place] [address], [place] [address]Qpegbis [Mass/Vol]7.5 g/dLNormal6.0-7.8Holzer HospitalComment on above:Performed By: #### [id number] #### [facility] [address] [place] [address], [place] [address]Nhhxiw [Moles/Vol]135 mmol/DFlupyx911-556HkuypwHolzer HospitalComment on above:Performed By: #### [id number] #### [facility] [address] [place] [address]Pxtd nitrogen [Mass/Vol]14 mg/dLNormal5-21Holzer HospitalComment on above:Performed By: #### [id number] #### [facility] [address] [place] [address]Sagz nitrogen/Creatinine [Mass ratio]20 No XmwwlQlvtxj86-62 Holzer HospitalComment on above:Performed By: #### [id number] #### [facility] [address] [place] [address]IMSZKYPISFXimteft By: SYSTEM SYSTEM on 92-64-5288Wbeflxsyc/100 WBC (Bld)0.7 %Normal0.0 - 2.0 %Remisol HemeBasophils/Leukocytes Auto (Bld) [Pure # fraction]0.0 E9/LNormal0.0 - 0.2 E9/LRemisol HemeEosinophils (Bld) [#/Vol]0.1 E9/LNormal0.0 - 0.5 E9/LRemisol HemeEosinophils/100 WBC (Bld)1.1 %Normal0.0 - 8.0 %Remisol HemeErythrocyte distribution width (RBC) [Ratio]15.5 %High10.9 - 14.2 %Remisol HemeHematocrit (Bld) [Volume fraction]41.1 %Qkfrht23.0 - 46.0 % Remisol HemeHemoglobin (Bld) [Mass/Vol]14.2 g/kYAlpkfo18.0 - 16.0 gm/dLRemisol HemeLymphocytes (Bld) [#/Vol]1.2 E9/LNormal1.0 - 4.0 E9/LRemisol Heme Lymphocytes/100 WBC (Bld)18.3 %Uyxmar12.0 - 50.0 %Remisol HemeMCH (RBC) [Entitic mass]32.3 qwTisrqz44.0 - 34.0 pgRemisol HemeMCHC (RBC) [Mass/Vol]34.5 g/dL Hptkpk97.4 - 36.0 gm/dLRemisol HemeMCV (RBC) [Entitic vol]93.7 dDPgncet58.0 - 100.0 fLRemisol HemeMonocytes (Bld) [#/Vol]0.4 E9/LNormal0.2 - 1.0 E9/LRemisol HemeMonocytes/100 WBC (Bld)5.4 %Normal4.0 - 14.0 %Remisol HemeNeutrophils (Bld) [#/Vol]4.8 E9/LNormal2.0 - 7.5 E9/LRemisol HemeNeutrophils/100 WBC (Bld)74.5 % Cljjeo69.0 - 75.0 %Remisol HemePlatelet mean volume (Bld) [Entitic vol]8.3 fL Normal6.4 - 10.8 fLRemisol HemePlatelets (Bld) [#/Vol]239.0 E9/AEhdyci930.0 - 500.0 E9/LRemisol HemeRBC (Bld) [#/Vol]4.4 E12/LNormal4.3 - 5.9 E12/LRemisol HemeWBC corrected for nucl RBC Auto (Bld) [#/Vol]6.5 E9/LNormal4.0 - 11.0 E9/L Remisol HemeLipid Panelon 02-91-2923Bvnnbpuzirz [Mass/Vol]163 mg/tTDbilnt723-538 Holzer HospitalComment on above:Performed By: #### [id number] #### [facility] [address] [place] [address]Hqvsndktyrp in HDL [Mass/Vol]47 mg/dLInvalid Interpretation CodeHolzer HospitalComment on above:Result Comment: '>= 60 LOW RISK' '<= 40 HIGH RISK'Performed By: #### [id number] #### [facility] [address] [place], [place] [address]Tebhhvlwizc in LDL [Mass/Vol]97 mg/dLNormal<=129Holzer HospitalComment on above:Performed By: #### [id number] #### [facility] [address], [place] [address]Hcdtqjujdvn in VLDL [Mass/Vol]42 mg/dLHigh7-40Holzer HospitalComment on above:Performed By: #### [id number] #### [facility] [address], [place] [address]Khmpegategfy [Mass/Vol]208 mg/dLHigh<=149Holzer HospitalComment on above:Performed By: #### [id number] #### [facility] [address] [place], [place] [address]Qfg B12on 18-63-1264Dmrjxsrih (Vitamin B12) [Mass/Vol]191 pg/mL Uvdhjm92-9126RrtpijHolzer HospitalComment on above:Performed By: #### [id number] #### [facility] [address] [place] [address], [place] [address]kWMDej 61-81-0181gHXX57 mL/min/1.73 i4Rdezkz>=59Holzer HospitalComment on above:Performed By: #### [id number] #### [facility] [address] [place], [place] [address]Ziflwg Medicine Office/Clinic Noteon 49-13-0534Akfpjw Medicine Office/Clinic NoteFapaul a. [facility] Medicine Office/Clinic Note HPI Staff Stomach pain: [...] the cramping. Did encouraged to follow-up with greenhouse staff if no improvement. 2. Alcohol problem drinking [...] days Additional Instructions: fasting labs Nigel SMITH, CAP SIZER-[place] VILLATORO In [address] [place] [phone] Additional Instructions: chronic care Patient Education Alcohol [...] tags, multiple acquired Smoker (more content not included)...[facility] HospitalComment on above: Result Comment: Electronically Signed By: SRINIVAS Pereyra Tammy L.\.br\Date and Time Signed: 07/12/24 20:01 ESTAmbulatory Visit Summaryon 24-09-5385Ebbndfufgy Visit SummaryAmbulatory Visit Summary CARMEN BLEDSOE :1960 [...] Appointments Tuesday 11:00 AM EST With: Where: [facility] [address] [place] [address]- Tuesday 12:00 PM EST With: Nigel SMITH, CAP SIZER-PHOTO OFFSET PRINTERParis Where: [facility] [address] [place] [address]- Tuesday 1:00 PM EST With: Nigel SMITH, CAP SIZER-PHOTO OFFSET PRINTERParis Where: [facility] [address] [place] [address]- Tuesday 11:00 AM EST With: Where: [facility] Tuesday 11:00 AM EDT With: David LEONARD, Rick Gipson Where: [facility] [place] You Need to Schedule the Following Appointments Follow Up with nurse visit When: Within 2 to 3 days Comments: fasting labs Where: Follow Up with Nigel SMITH, CAP SIZER-PHOTO OFFSET PRINTERParis When: In 1 week Comments: chronic care Where: [address] [place] [phone] You Need to Complete the Following B-Type [...] day as needed for Pain Pickup at [facility] #52994 Unchanged albuterol (albuterol 0.083% Inh Rochelle 3 mL) 3 Shanta (more content not included)...[facility] HospitalAmbulatory Visit Summaryon 39-60-7092Hobvpztviq Visit SummaryAmbulatory Visit Summary CARMEN BLEDSOE :1960 Visit Date:06/05/2024 Ambulatory Visit Instructions Your Diagnosis Benign hypertension Mixed hyperlipidemia Peripheral edema Your Care Team Attending Physician - David LEONARD, Rick Gipson Primary Care Physician - Nigel MSN, CAP SIZER-PHOTO OFFSET PRINTER, [place] Hamilton Referring Physician - NONE, XXXX [...] Tuesday 1:00 PM EST With: Nigel MSN, CAP SIZER-PHOTO OFFSET PRINTER, [place] Hamilton Where: [facility] [place] [address] [place] [address]- Tuesday 11:00 AM EST With: Where: [facility] Tuesday 11:00 AM EDT With: David LEONARD, Rick Gipson Where: [facility] [place] Medications What How Much When Why Instructions [...] for. Alcohol problem drin (more content not included)...[facility] HospitalHeart and Vascular Office/Clinic Noteon 26-15-6701Zjorl and Vascular Office/Clinic NoteHeart and Vascular Office/Clinic [...] Daily, # 90 tab(s), Refills(s) 1, Pharmacy: [facility] #[id number], 168, cm, 06/05/24 13:03:00 EST, Height/Length Dosing, 145.9, kg, 06/05/24 13:03:00 EST, Weight Dosing 2. Mixed hyperlipidemia (E78.2: Mixed hyperlipidemia) Patient is currently taking rosuvastatin 40 mg daily for HLD. Continue with current medication Ordered: rosuvastatin, 40 mg = 1 tab(s), Oral, Daily, # 90 tab(s), Refills(s) 3, Pharmacy: [facility] #[id number], 168, cm, 06/05/24 13:03:00 EST, Height/Length Dosing, [...] mg daily, spironolactone 25 mg daily, potassium aiagzqti77 mEq daily. Since patient has been doing well and no swelling, suggest she continue with current medication. Patient most recent echo from 11/2023 showed normal EF. Ordered: furosemide, 40 mg = 1 tab(s), Oral, Daily, # 90 tab(s), Refills(s) 1, Pharmacy: [facility] #[id number], 168, cm, 06/05/24 13:03:00 EST, Height/Length Dosing, 145.9, kg, 06/05/24 13:03:00 EST, Weight Dosing potassium chloride, 20 mEq = 1 tab(s), Oral, Daily, Take with Lasix, # 90 tab(s), Refills(s) 1, Pharmacy: [facility] #[id number], 168, cm, 06/05/24 13:03:00 EST, Height/Length Dosing, 145.9, kg,06/05/24 13:03:00 EST, Weight Dosing Follow-up with me in 6 months or sooner if needed Portions of this record may have been created with voice recognition artificial intelligence software, specifically [employer], [employer] and or [employer]. Substitutions may have occurred due to the inherent limitations of voice recognition and artificial intelligence software. Follow-up No qualifying data available Problem List/Past Medical History Ongoing Alcohol problem drinking Benign hypertension Bilateral hip pain Bilateral leg edema BMI 45.0-49.9, adult (more content not included)...[facility]edo HospitalComment on above: Result Comment: Electronically Signed By: David LEONARD, Rick Gipson\.br\Date and Time Signed: 06/05/24 13:24 [facility] Medicine Office/Clinic Noteon 23-82-8194Yczrqc Medicine Office/Clinic NoteFapaul a. [facility] Medicine Office/Clinic Note Chief Complaint 3 month [...] dose lung CT: _ List of Providers: Clerical Adviser: Dr Ramirez Salesperson Corsets: Dr Phillip Orthopaedics: Dr Martinez LABS Cr/eGFR: [...] 4.6 mcg/mL (08/20/22 15:02:00) . Future Appointments [facility] Doc Appt. Date: 02/22/2024 1:20 PM Scheduled Provider: Paris Macias [address] [place], [address] Phone: [phone] Fax: [phone] [address] [place], [place], [id number] Phone: -- Fax: -- [facility] Doc Appt. Date: 06/05/2024 1:00 PM Scheduled Provider: Alirio Ramirez MD [address] [place], [address] Fax: [phone] [address] [place] [address], [address] Phone: -- Fax: -- [address] [place] [address], [address] Phone: -- Fax: -- [facility] Appt. Date: 08/31/2024 11:00 AM Scheduled Provider: ENDO 1 FT [address] [place], [address] Fax: -- She reports feeling well with [...] last HbA1c was 5.4% when checked at [facility]. She has discontinued her trazodone for sleep but continues to use a CPAP machine. She has already had a colonoscopy, and there is another scheduled in 3 months. Her last mammogram was (more content not included)...[facility] Toledo HospitalComment on above:Result Comment: Electronically Signed By: SRINIVAS Pereyra Tammy L.\.br\Date and Time Signed: 02/23/24 15:15 EDT\.br\Electronically Co-Signed By: MEGHAN KRAUSE\.br\Date and Time Co-Signed: 02/22/24 16:47 EDTAmbulatory Visit Summaryon 31-40-9788Ohidinpcld Visit Summary Ambulatory Visit Summary CARMEN BLEDSOE [...] Adam SAMPSON, Alirio Hooper Where: [facility] Tuesday 1:00 PM EST With: Nigel SMITH, DARLEEN-Paris VILLATORO Where: [address] [address]- Tuesday 11:00 AM EST With: Where: [facility] You Need to Schedule the Following Appointments Follow Up with Nigel SMITH, DARLEEN-Paris VILLATORO When: In 6 months Comments: chronic care Where: [address] [place] [phone] Medications What How Much When Why Instructions Changed aripiprazole (Abilify 5 mg Tab) 1 Tablets By Mouth Every day Changed dulaglutide (Trulicity Pen 3 mg/ 0.5 mL subcutaneous solution) 3 Milligram Subcutaneous Every week Type 2 diabetes mellitus with morbid obesity Pickup at [facility] #15232 Unchanged albuterol (albuterol 0.083% Inh Rochelle 3 [...] concerns Unchanged Misc Prescription (more content not included)...[facility] HospitalHeart and Vascular Office/Clinic Noteon 72-93-1204Fuhjt and Vascular Office/Clinic NoteHeart and Vascular Office/Clinic [...] after patient or guardian consented to allow Dragon Ambient eXperience to record this visit. BUD marine habitat resource specialist and provider reviewed before signing. BUD: Tyra Manatad/pasted by: Josse Nava Portions of this record may have been created with voice recognition artificial intelligence software, specifically [employer], [employer] and or CO[employer]ON Experience. Substitutions may have occurred due to [...] 1 refills furosemide 4 (more content not included)...[facility] Comment on above:Result Comment: Electronically Signed By: Adam SAMPSON, Alirio Hooper\.br\Date and Time Signed: 01/28/24 09:35 EDT\.br\Electronically Co- Signed By: Josse Nava\.br\Date and Time Co-Signed: 12/06/23 16:45 EDT Consenton [id number]#1.00TIFF NormalHolzer HospitalDischarge Instructionson 31-01-8986Pwczugxcz [id number]#1.00TIFFNormalHolzer HospitalMain OR Intraoperative Recordon 03-43-7843Iywn OR Intraoperative RecordIntraOp Document Type FT Summary Primary Physician: Walker Phillip MD Finalized Date/Time: 12/26/23 11:06:58 Pt. Name: CARMEN BLEDSOE/Sex: 1960 Female Med Rec #: [id number] Physician: Walker Phillip MD Financial #: [id number] Pt. Type: O Room/Bed: / Admit/Disch: 12/23/23 [...] Lainez RN, Ray Graham Role Performed Anesthesiologist Ux Architect - Primary Staff - Other Strategic Sourcing Specialist Time In 12/23/23 12:15:00 12/23/23 12:15:00 12/23/23 [...] and tissue Entry 1 Skin Integrity Intact, [place], Warm, and Skin Abnormality No Dry Outcomes Met? Yes Last Modified By: Felicia Lainez RN 12/23/23 12:25:30 Post-Care Text: The patient is free from signs and symptoms of injury caused by extraneous objects Patient Positioning FT Pre-Care Text: Identifies physical alterations that require additional precautions for procedure-specific posit (more content not included)...NormalHolzer HospitalConsent for Treatmenton 45-23-0784Dydtvxi for Treatment [id number]#1.00TIFFNormalHolzer HospitalDischarge Instructionson 85-71-4325Uiiudkozy Instructions CARMEN BLEDSOE :1960 Visit Date:12/23/2023 Inpatient [...] EDT With: Marjan SAMPSON, Walker Pritchett Where: [facility] [address] [place] [address] \.br\ Tuesday 1:00 PM EST \.br\ With:Adam SAMPSON, Alirio Hooper\.br\ Where: [facility]\.br\ New Follow Up Appointments after Discharge\.br\ Follow Up with Marjan SAMPSON, Walker Pritchett, GAS, MED When: \.br\ Comments:\.br\ Call Office in 2 weeks for results or follow-up Appt. \.br\ Where:\.br\ [address]\.br\ [place] [address]-\.br\ [id number]\.br\ Medications\.br\ What How Much When WhyInstructions Next [...] Chest discomfort: Most heart attacks involve discomfFisher Guánica Medical CenterComment on above:Result Comment: Electronically Signed By: Serge MURRAY, Anais\.sonia\Date and Time Signed: 12/23/23 13:18EDTEndoscopic Procedure Report - Otheron 94-54-7182Yumsptbytv Procedure Report - OtherPatient: CARMEN BLEDSOE Age: 63 years Sex: Female : 1960 Associated Diagnoses: None Author: Walker Phillip MD Pre-Procedure Procedure Date 12/23/2023 12:56:00 . Procedure Type: Colonoscopy with removal of tumor(s), polyp(s), or other lesion(s) by cold snare technique. Procedure provider Performed by Walker Phillip MD. Current history and physical Reviewed. Colonoscopy ([id number]) on 03/17/2020 at 59 Years. L foot bunion/reconstruction. Eye/lens implant bilat. Knee replacement ([id number]).. Past Medical History Resolved Tubular adenoma of colon (5208344536): Resolved. COPD exacerbation (072922153): Resolved.. Family History Liver cancer Father () Hypertension Sister Brother Mother () Stomach cancer Mother () . Procedure History Colonoscopy ([id number]) on 03/17/2020 at 59 Years. L foot bunion/reconstruction. Eye/lens implant bilat. Knee replacement (699327285).. Colorectal neoplasm risk assessment High risk Previous [...] 90 tab(s), Refills(s) 3, Pharmacy: [facility] #[id number], 167, cm, 01/11/23 11:15:00 EDT, Height/Length Dosing, 138, kg, 01/11/23 11:15:00 EDT, Weight Dosing Alcohol wipes: Alcohol wipes, See Instructions, 100 EA, 3, Use to check BS daily dx E11.9, [facility] #99189, Supply, 163, cm, 12/30/21 11:09:00 EDT, Height/Length Dosing, 154, kg, 12/30/21 11:09:00 EDT, Weight Dosing Crestor 40 mg Tab: 40 mg = 1 tab(s), Oral, Daily, # 90 tab(s), Refills(s) 3, Pharmacy: [facility] #[id number], 167, cm, 05/09/23 8:15:00 EST, Height/Length Dosing, 145.6, kg, 05/09/23 8:15:00 EST, Weight Dosing FLUoxetine 20 mg Cap: 40 mg = 2 cap(s), Oral, Daily, # 180 cap(s), Refills(s) 1, Pharmacy: [facility]#33541, 167, cm, 08/10/23 14:24:00 EST, Height/Length Dosing, [...] 90 tab(s), Refills(s) 2, Pharmacy: [facility] #14028, 167, cm, 08/10/23 14:24:00 EST, Height/Length Dosing, 151.4, kg, 08/10/23 14:24:00 EST, Weight Dosing Lancets: Lancets, See Instructions, 100 EA, 3, Use to check BS daily dx E11.9, [facility] #85860, Supply, 163, cm, 12/30/21 11:09:00 EDT, Height/Length Dosing, 154, kg, 12/30/21 11:09:00 EDT, Weight Dosing Nebulizer Machine: Nebulizer Machine, See Instructions, 1 EA, 0, Nebulizer Machine, [facility] #16880, Supply, 168, cm, 10/11/23 14:32:00 EDT, Height/Length Dosing, 160.2, kg, 10/11/23 14:32:00 EDT, Weight Dosing Nebulizer Tubing and Mouthpiece Kit: Nebulizer Tubing and Mouthpiece Kit, See Instructions, 1 kit(s), 0, Nebulizer Tubing and Mouthpiece Kit, [facility] #76294, Supply, 168, cm, 10/11/23 14:32:00 EDT, Height/Length Dosing, 160.2, kg, 10/11/23 14:32:00 EDT, Weight Dosing Pantoprazole [address] Tab: 40 mg = 1 tab(s), Oral, Daily, # 90 tab(s), Refills(s) 3, Pharmacy: [facility] #31453, 167, cm, 01/11/23 11:15:00 EDT, Height/Length Dosing, 138, kg, 01/11/23 11:15:00 EDT, Weight Dosing Singulair 10 mg Tab: 10 mg = 1 tab(s), Oral, qPM, # 30 tab(s), Refills(s) 2, Pharmacy: [facility], 170, cm, 10/16/19 9:09:00 EDT, Height/Length [...] Use to test BS daily, [facility] #57189, Supply, 167.5, cm, 10/18/22 13:30:00 EDT, Height/Length Dosing, 147, kg, 10/18/22 13:30:00 EDT, Weight Dosing Trulicity Pen 1.5 mg/0.5 mL subcutaneous solution: 1.5 mg, SubCutaneous, qWeek, # 4 EA, Refills(s) 0, Pharmacy: [facility] #59450, 168, cm, 12/06/23 14:55:00 EDT, Height/Length Dosing, 139, kg, 12/06/23 14:55:00 EDT, Weight Dosing Ventolin HFA 90 mcg/inh Aerosol-Adpt: 2 (more content not included)...Normal Holzer HospitalComment on above:Result Comment: Electronically Signed By: Walker Phillip MD\.br\Date and Time Signed: 12/23/23 12:58 EDTMain OR PACU I Recordon 76-02-9144Nqrd OR PACU I RecordPACU Phase I Document Type FT Summary Primary Physician: Walker Phillip MD Finalized Date/Time: 12/23/23 13:44:10 Pt. Name: CARMEN BLEDSOE/Sex: 1960 Female Med Rec #: [id number] Physician: Walker Phillip MD Financial #: [id number] Pt. Type: O Room/Bed: / Admit/Disch: 12/23/23 [...] Signatures Signed By: Anais Valentine RN 12/23/23 13:44NoLicking Memorial HospitalMain OR Preoperative Recordon 23-57-8422Tlqx OR Preoperative RecordHolding Area Document Type FT Summary Primary Physician: Walker Phillip MD Finalized Date/Time: 12/23/23 10:57:22 Pt. Name: CARMEN BLEDSOE French/Sex: 1960 Female Med Rec #: [id number] Physician: Walker Phillip MD Financial #: [id number] Pt. Type: O Room/Bed: / Admit/Disch: 12/23/23 [...] Signatures Signed By: Jannet Adorno RN 12/23/23 10:57NoLicking Memorial HospitalMonitor Recordon 55-75-2103Lyhlpwg Record [id number]#1.00TIFFProMedica Toledo HospitalNursing Narrative Noteon 59-91-0441Sdqezuv Narrative NoteUnable to obtain accurate testing after attempt x2 RN d/t pt body habitus.[facility] HospitalPatient Education - Texton 35-66-9531Ukdjihq Education - Text Colonoscopy Care After Surgery [...] is severe or gets worse throughout the day.[facility] HospitalProgress Note-Physicianon 12-23-2023 Progress Note-PhysicianPatient: CARMEN BLEDSOE Age: 63 years Sex: Female : 1960 Associated Diagnoses: None Author: Zaid Benz MD Postoperative Information Postoperative disposition: Postoperative disposition: To PACU. Optimetrix number: Optimetrix number [id number]. Anesthetic utilized: General. Health Status Allergies: Allergic [...] Discharge when meets criteria ( To home ).Pro[facility] Toledo HospitalComment on above:Result Comment: Electronically Signed By: [...] Daily, # 90 tab(s), Refills(s) 3, Pharmacy: [facility] #[id number], 167, cm, 01/11/23 11:15:00 EDT, Height/Length Dosing, 138, kg, 01/11/23 11:15:00 EDT, Weight Dosing Alcohol wipes: Alcohol wipes, See Instructions, 100 EA, 3, Use to check BS daily dx E11.9, [facility] #45548, Supply, 163, cm, 12/30/21 11:09:00 EDT, Height/Length Dosing, 154, kg, 12/30/21 11:09:00 EDT, Weight Dosing Crestor 40 mg Tab: 40 mg = 1 tab(s), Oral, Daily, # 90 tab(s), Refills(s) 3, Pharmacy: [facility] #33454, 167, cm, 05/09/23 8:15:00 EST, Height/Length Dosing, 145.6, kg, 05/09/23 8:15:00 EST, Weight Dosing FLUoxetine 20 mg Cap: 40 mg = 2 cap(s), Oral, Daily, # 180 cap(s), Refills(s) 1, Pharmacy: [facility][id number], 167, cm, 08/10/23 14:24:00 EST, Height/Length Dosing, [...] 90 tab(s), Refills(s) 2, Pharmacy: [facility] #67714, 167, cm, 08/10/23 14:24:00 EST, Height/Length Dosing, 151.4, kg, 08/10/23 14:24:00 EST, Weight Dosing Lancets: Lancets, See Instructions, 100 EA, 3, Use to check BS daily dx E11.9, [facility] #02278, Supply, 163, cm, 12/30/21 11:09:00 EDT, Height/Length Dosing, 154, kg, 12/30/21 11:09:00 EDT, Weight Dosing Nebulizer Machine: Nebulizer Machine, See Instructions, 1 EA, 0, Nebulizer Machine, [facility] #04427, Supply, 168, cm, 10/11/23 14:32:00 EDT, Height/Length Dosing, 160.2, kg, 10/11/23 14:32:00 EDT, Weight Dosing Nebulizer Tubing and Mouthpiece Kit: Nebulizer Tubing and Mouthpiece Kit, See Instructions, 1 kit(s), 0, Nebulizer Tubing and Mouthpiece Kit, [facility] #34826, Supply, 168, cm, 10/11/23 14:32:00 EDT, Height/Length Dosing, 160.2, kg, 10/11/23 14:32:00 EDT, Weight Dosing Pantoprazole [address] Tab: 40 mg = 1 tab(s), Oral, Daily, # 90 tab(s), Refills(s) 3, Pharmacy: [facility] #11861, 167, cm, 01/11/23 11:15:00 EDT, Height/Length Dosing, 138, kg, 01/11/23 11:15:00 EDT, Weight Dosing Singulair 10 mg Tab: 10 mg = 1 tab(s), Oral, qPM, # 30 tab(s), Refills(s) 2, Pharmacy: [facility], 170, cm, 10/16/19 9:09:00 EDT, Height/Length [...] Use to test BS daily, [facility] #78276, Supply, 167.5, cm, 10/18/22 13:30:00 EDT, Height/Length Dosing, 147, kg, 10/18/22 13:30:00 EDT, Weight Dosing Trulicity Pen 1.5 mg/0.5 mL subcutaneous solution: 1.5 mg, SubCutaneous, qWeek, # 4 EA, Refills(s) 0, Pharmacy: [facility] #88443, 168, cm, 12/06/23 14:55:00 EDT, Height/Length Dosing, 139, kg, 12/06/23 14:55:00 EDT, Weight Dosing Ventolin HFA 90 mcg/inh Aerosol-Adpt: 2 puff(s), Inhalation, q6hr for wheezing, 1 EA, Refill(s) 1, [facility] #77569, 167, cm, 09/29/22 11:37:00 EDT, Height/Length Dosing, 149.2, kg, 09/29/22 11:37:00 EDT, Weight Dosing Vitamin D3 5000 intl units oral capsule: 5,000 International_Unit = 1 cap(s), Oral, Daily, with food, # 100 cap(s), Refills(s) 1, Pharmacy: [facility] #52214, 170, cm, 10/13/22 9:06:00 EDT, Height/Length Dosing, 149.2, kg, 09/29/22 11:37:00 EDT, Weight Dosing albuterol 0.083% Inh Rochelle 3 mL: 2.5 mg, 3 mL, Inhalation, q6hr Shortness of breath or wheezing, 100 EA, Refill(s) 1, [facility] #01787, 168, cm, 10/11/23 14:32: (more content not included)...[facility] Toledo HospitalComment on above:Result Comment: Electronically Signed By: Demar SAMPSON, Zaid Hooper\.br\Date and Time Signed: 12/23/23 11:24 EDTRAD - MRI Reporton [id number] - MRI Report [id number]#1.00TIFFNormAvita Health SystemMRI LUMBAR SPINE WO CONTRASTon 77-69-8557TKB LUMBAR SPINE WO CONTRAST HISTORY: Low back [...] Signed by: Dwayne Ruffin MD 12/22/23 Final resultNormalMerDoctors HospitalInsurance Correspondenceon 12-13-2023 Insurance [id number]#1.00TIFFNovirgie Mag[address] Agnes HospitalPhysician Orderon [id number] Order [id number]#1.00TIFFNoPat St. Agnes HospitalAmbulatory Visit Summaryon 09-84-5360Jfbbaitoyp Visit Summary CARMEN BLEDSOE :1960 Visit Date:12/06/2023 Ambulatory Visit Instructions Your Care Team Attending Physician - Adam SAMPSON, Alirio Briggs. Primary Care Physician - Nigel MSN, CAP SIZER-PHOTO OFFSET PRINTER, [place] Referring Physician - NONE, XXXX [...] Appointments Tuesday 10:30 AM EDT With: Where: [facility] Tuesday 12:00 PM EDT With: Where: [facility] Tuesday 10:45 AM EDT With: Marjan SAMPSON, Walker Pritchett Where: [address] [address]- \.br\ Tuesday 1:00 PM EST \.br\ With:Adam SAMPSON, Alirio Hooper\.br\ Where: [facility]\.br\ Medications\.br\ What How Much When Why Instructions\.br\ [...] you for choosing us for your care.\.br\ \.br\[facility] Consent for Treatmenton 68-82-8228Wwmgewo for Treatment [id number]#1.00TIFFNormalFishWestern Maryland Hospital CenterAmbulatory Visit Summaryon 07-84-8693Utfiepmajt Visit Summary CARMEN BLEDSOE :1960 Visit Date:11/25/2023 Ambulatory Visit Instructions Your Diagnosis Benign hypertension Hepatomegaly Type 2 diabetes mellitus with morbid obesity Alcohol problem drinking Class 3 severe obesity due to excess calories with serious comorbidity in adult, Morbid (severe) obesity due to excess calories BMI 50.0-59.9, adult Your Care Team Attending Physician - Nigel MSN, CAP SIZER-Paris VILLATORO Primary Care Physician - Nigel SMITH, CAP SIZER-Paris VILLATORO This Is Your Medications List tramadol [...] SAMPSON, Alirio Hooper Where: [facility] Tuesday 10:30 AM EDT With: Where: [facility] Tuesday 12:00 PM EDT With: Where: [facility] Tuesday 10:45 AM EDT With: Marjan SAMPSON, Walker Pritchett Where: [facility] [address] [place] [address]- \.br\ You Need to Schedule the Following Appointments\.br\ Follow Up with Nigel SMITH, CAP SIZER-PHOTO OFFSET PRINTER, [place] When: In 3 months\.br\ Comments:\.br\ chroniccare\.br\ Where:\.br\ [address]\.br\ [place] [address]\.br\ Medications\.br\ What How Much When Why Instructions\.br\ Changed tramadol (traMADOL 50 mg Tab) 1 Tablets By Mouth Every 6 hours as needed for for pain Pickup at [facility] #05479\.br\ Unchanged albuterol (albuterol 0.083% InhSol 3 mL) [...] or concerns \.br\ Pharmacy Information\.br\ [facility] #13607: [address] [place], [place] [phone]\.br\ \.br\ What How Much When Comments\.br\ Stop [...] Are exposed to hepaFisher [facility] Medicine Office/Clinic Noteon 23-15-4217Dsyjtb Medicine Office/Clinic NoteChief Complaint Here for 1 [...] dose lung CT: _ List of Providers: Clerical Adviser: DR Ramirez Salesperson Corsets: Dr Phillip Orthopaedics: Dr Martinez LABS Cr/eGFR: [...] PM Scheduled Provider: Adam SAMPSON, Alirio Hooper [address] [place] [address], [address] Fax: [phone] [address] [place] [address], [address] Phone: -- Fax: -- [address] [place] [address], [address] Phone: -- Fax: -- [facility] Appt. Date: 12/23/2023 10:30 AM Scheduled Provider: ENDO 3 FT Phone: -- Fax: -- [facility] Appt. Date: 12/23/2023 12:00 PM Scheduled Provider: ENDO 1 FT Phone: -- Fax: -- [facility] Appt. Date: 01/13/2024 10:45 AM Scheduled Provider: Marjan SAMPSON, Walker Pritchett [address] [place] [address], [address], [address] Phone: [phone] Fax: [phone] The patient has transitioned to using a [...] past negative relapse experience (more content not included)...[facility]edo HospitalComment on above:Result Comment: Electronically Signed By: Nigel SMITH, DARLEEN-Paris VILLATORO\.br\Date and Time Signed: 11/25/23 20:36 EDT\.br\Electronically Co-Signed By: Seven Ruelas\.br\Date and Time Co- Signed: 11/25/23 16:37 EDTPatient Educationon 58-48-4033Xvozmmi Education Hepatomegaly Hepatomegaly is when a person's [...] to follow these instructions. Medicines ? Take ieko-nyl-annsixs and prescription medicines only as told by your health care provider. ? Do not start taking any new medicine unless your health care provider has approved. These gvrzqsxzcfi-nrv-gtxrtug medicines, vitamins, herbs, and supplements. Some of [...] provider. Document Revised: 05/19/2022 Document Reviewed: 05/19/2022 ElseActuris Patient Education ? 2022 [employer]AR. Endocrinology Type 2 Diabetes Mellitus, Self-Care, Adult [...] your blood glucose every (more content not included)...NormalHolzer HospitalBasi Metabolic Profon 68-57-2507Xcpra gap [Moles/Vol]10 mmol/LNormal9-17[facility], IncComment on above:Performed By: #### BMP, BNP ####[facility] [address] [place], [place] [address]( [phone] Director: Yury Caba MDBUN/CRE Jptbi25Mpfsav3-02Bwdbi Willard HospitalComment on above:Performed By: #### BMP, BNP ####[facility] [address] [place], [place] [id number] Lab Director: KASH Joshialcium [Mass/Vol]9.2 mg/dLNormal8.6-10.4[facility], IncComment on above:Performed By: #### BMP, BNP ####[facility] [address] [place] [address] Lab Director: KASH Joshihloride [Moles/Vol]99 mmol/NXbtkuc09-041AqqgnSelect Medical Specialty Hospital - Boardman, IncComment on above: Performed By: #### BMP, BNP ####[facility] [address] [place] [address] Lab Director: KASH JoshiO2 [Moles/Vol]24 mmol/ACuhmqb63-89VyligSelect Medical Specialty Hospital - [facility], IncComment on above:Performed By: #### BMP, BNP ####[facility] [address] [place] [address]( [phone] Director: KASH Joshireatinine [Mass/Vol]0.7 mg/dLNormal 0.5-0.9[facility], IncComment on above:Performed By: #### BMP, BNP ####[facility] [address] [place] [phone] Director: Yury Caba MDGFR/1.73 sq M.predicted among non-blacks MDRD (S/P/Bld) [Vol rate/Area]mL/min/{1.73_m2}Normal>60[facility], IncComment on above:Result Comment: These results are not [...] renal tubular secretion.Performed By: #### BMP, BNP ####[facility] [address] [place] [phone] Director: Yury Caba MDGlucose [Mass/Vol]107 mg/cZVufu64-23FuxvdWilson HealthComment on above:Performed By: #### BMP, BNP ####[facility] [address] [place] [address] Lab Director: DEZ Joshiotassium [Moles/Vol]4.7 mmol/LNormal3.7-5.3MWilson HealthComment on above:Performed By: #### BMP, BNP ####[facility] [address] [place] [address] Lab Director: SANDRA Joshiodium [Moles/Vol]133 mmol/MAbc841-026FcquxSelect Medical Specialty Hospital - Board[facility], IncComment on above:Performed By: #### BMP, BNP ####[facility] [address] [place] [address] Lab Director: Yury Caba MDUrea nitrogen [Mass/Vol]14 mg/dLNormal8-23[facility], IncComment on above: Performed By: #### BMP, BNP ####[facility] [address] [place] [address] Lab Director: Yury Caba MDBrain Natri. Peptideon 47-85-3242Sixjzfdhexx peptide B (Bld) [Mass/Vol]164 pg/mLNormal<300 [facility], IncComment on above:Result Comment: An age-independent cutoff point of 300 pg/ml has a 98% negative predictive value excluding acute heart failure.Performed By: #### BMP, BNP ####[facility] [address] [place] [address] Lab Director: Yury Caba MDOutside Labson 20-61-5152Ohzpzaw Labs [id number]#1.00TIFFNoLicking Memorial HospitalConsent for Treatmenton 37-47-5983Gdrtcsy for Treatment [id number]#1.00TIFMercer County Community HospitalConsent for Procedure/Surgeryon 18-01-7183Xqydgby for Procedure/Surgery [id number]#1.00TIFMercer County Community HospitalFL ARTHR/ASP/INJ MAJOR JT/BURSA RT WO USon 23-39-6115KR ARTHR/ASP/INJ MAJOR JT/BURSA RT WO US Begin Addendum #1 FLUORO DOSE: 84. 497 mGy Reference air kerma (Ka,r) Interpreted by: Casa Minor Jr., MD Signed by: Casa Minor Jr., MD 11/04/23 Edited Result - [facility] ARTHROGRAM RIGHT HIP S AND I on 63-94-8259HC ARTHROGRAM RIGHT HIP S AND I Begin Addendum #1 FLUORO DOSE: 84. 497 mGy Reference air kerma (Ka,r) Interpreted by: Casa Minor Jr., MD Signed by: Casa Minor Jr., MD 11/04/23 Edited Result - [facility] GUIDED NEEDLE PLACEMENTon 09-52-1595ZE GUIDED NEEDLE PLACEMENT Begin Addendum #1 FLUORO DOSE: 84. 497 mGy Reference air kerma (Ka,r) Interpreted by: Casa Minor Jr., MD Signed by: Casa Minor Jr., MD 11/04/23 Edited Result - [facility] CampusAmbulatory Visit Summaryon 54-85-3006Dilfinkfzx Visit Summary CARMEN BLEDSOE :1960 Visit Date:11/02/2023 Ambulatory Visit Instructions Your Diagnosis Elevated LFTs Hepatomegaly History of alcohol abuse History of colon polyps Smoker Your Care Team Attending Physician - Marjan SAMPSON, Walker Pritchett Primary Care Physician - Nigel MSN, CAP SIZER-PHOTO OFFSET PRINTER, [place] This Is Your Medications List [...] Doc 2023 3:00 PM EDT With: Where: [facility] WillardInvalid Interpretation [address] [place] [address]- \.br\ Tuesday 3:15 PM EDT \.br\ With:Adam SAMPSON, Alirio Hooper\.br\ Where: [facility]\.br\ Tuesday 10:30AM EDT \.br\ With:\.br\ Where: [facility]\.br\ Tuesday 12:00 PM EDT \.br\ With:\.br\ Where: [facility]\.br\ Tuesday 10:45 AM EDT \.br\ With: Marjan SAMPSON, Walker Pritchett\.br\ Where: [facility] HealthHolzer HospitalGastroenterology Office/Clinic Noteon 50-86-4989Pftnaficwghhqoej Office/Clinic NoteChief Complaint elevated LFT's, hepatomegaly, hx [...] Denies blood thinner use. [facility] IM[facility]ION: Hepatomegaly and hepatic steatosis. EGD/Colon 03/17/20 @ [facility]: POSTOPERATIVE DIAGNOSES: 1. Antral gastritis. 2. [...] Will get chronic liver disease panel Ordered: Dbnkh-6-Ewstzdffzvg KIM w/Reflex if POS Antimitochondrial Antibody, Quantitative Colonoscopy (Hospital Procedure) Comprehensive Metabolic Panel Current tobacco smoker 1034F E&M of New Patient Moderate 45-59 Min 62802 EGD Endoscopy (Hospital Procedure) Ferritin Fibroscan (Hospital [...] E&M of New Patient Moderate 45-59 Min 63373 EGD Endoscopy (Hospital Procedure) 3. 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 History of colon polyps (Z86.010: Personal history of colonic polyps) Had multiple TA's 2020, repeat colonoscopy Ordered: Colonoscopy (Hospital Procedure) E&M of New Patient Moderate 45-59 Min 94555 EGD Endoscopy (Hospital Procedure) 5. Smoker (F17.200: Nicotine dependence, unspecified, uncomplicated) Consulted Ordered: Colonoscopy (Hospital Procedure) E&M of New Patient Moderate 45-59 Min 24888 EGD Endoscopy (Hospital Procedure) Follow-up No qualifying [...] 40 mg Tab, 4 (more content not included)...[facility] HospitalComment on above:Result Comment: Electronically Signed By: Marjan SAMPSON, Walker Pritchett\.br\Date and Time Signed: 11/02/23 11:03 EDTPhysician Orderon 75-62-6836Qkxqhtclv [id number]#1.00TIFF [facility] HospitalFapaul [facility] Medicine Office/Clinic Noteon 10-27-2023 Family Medicine Office/Clinic [...] by _ Foot exam: 08/10/2023 done by [employer]ryant PHOTO OFFSET PRINTER A1c: Hgb A1C %: 6.3 % High (08/20/22 15:02:00) Smokers/ former smokers: Low dose lung CT: _ List of Providers: Clerical Adviser: Dr Ramirez Gastrointestinal: Dr Phillip LABS Cr/eGFR: [...] Microalb: 4.6 mcg/mL (08/20/22 15:02:00) Future Appointments [facility] Digestive Health Appt. Date: 11/02/2023 10:30 AM Scheduled Provider: Marjan SAMPSON, Walker Pritchett [address] [facility], [address], [address] Phone: [phone] Fax: [phone] [facility] Doc Appt. Date: 11/10/2023 3:00 PM Scheduled Provider: SERGEI Yarbrough Nurse Phone: -- Fax: -- FT.Cardiology Clinic Doc Appt. Date: 12/06/2023 3:15 PM Scheduled Provider: Adam SAMPSON, Alirio Hooper [address] [place], [address] Fax: [phone] She admitted that she relapsed on her [...] weak but declines physical therapy. Sisters questioning [facility] re[facility] or even an AA meeting, patient declines. States she has gotten rid of all of her alcohol out of her house and she is not hiding any bottles anywhere. She is aware that her drinking is what is put her in the situation she is in now. Does have a appointment with the GI doctor up at [facility] for her hepatomegaly and elevated liver. She [...] to let the office (more content not included)...[facility] Toledo HospitalComment on above:Result Comment: Electronically Signed By: SRINIVAS Pereyra Tammy L.\.br\Date and Time Signed: 10/27/23 08:09 EDT\.br\Electronically Co-Signed By: Safia Greenberg\.br\Date and Time Co-Signed: 10/26/23 16:02 EDTAmbulatory Visit Summaryon 24-58-9736Fdeiyqnazy Visit Summary CARMEN BLEDSOE :1960 Visit Date:10/26/2023 [...] EDT With: Marjan SAMPSON, Walker Pritchett Where: [facility] Digestive HealthInvalid Interpretation Code [address] [place] [address]- \.br\ Tuesday 2:40 PM EDT \.br\ With:Nigel SMITH, CAP SIZER-PHOTO OFFSET PRINTERParis\.br\ Where: [facility] [place] HealthInsurance Correspondenceon 69-39-9948Jcflefuzk Correspondence [id number]#1.00TIFFProMedica Toledo HospitalPatient Educationon 20-90-6162Czmqqsh EducationCardiovascular Heart Failure, Self-Care Heart failure is [...] when you have heart failure Medicines Take gike-glo-barnpcv and prescription medicines only as told by [...] date with vaccines. Pneu (more content not included)...[facility]edo HospitalAmbulatory Visit Summaryon 51-28-8031Yciimwmnbl Visit Summary CARMEN BLEDSOE :1960 Visit Date:10/25/2023 Ambulatory Visit Instructions Your Diagnosis Benign hypertension Mixed hyperlipidemia Bilateral leg edema Your Care Team Attending Physician - Adam SAMPSON, Alirio Briggs. Primary Care Physician - Nigel MSN, DARLEEN-IRVING, Paris Hamilton Referring Physician - NONE, XXXX [...] Tuesday 1:20 PM EDT With: Nigel SMITH, DARLEEN-Paris VILLATORO Where: [facility] Family Medicine WillardInvalid Interpretation [address] [facility] [place] [address] [place] [address]- [phone]\.br\ 2023 3:00 PM EDT \.br\ With:\.br\ Where: [facility] HillConsent for Treatmenton 77-62-6931Dqvftle for Treatment [id number]#1.00TIFFNormAvita Health SystemHeart and Vascular Office/Clinic Noteon 40-97-0868Zcguh and Vascular Office/Clinic NoteChief Complaint B/L EDEMA History of Present Illness 62-year-old female with history of bilateral lower extremity edema and diastolic heart failure as well as obesity, tobacco smoking, hypertension, hyperlipidemia. Negative stress test last year. Recently was having increased shortness of breath and lower extremity swelling went to [facility], and was told to take extra furosemide [...] PRN, 1 refills Vi (more content not included)...[facility] Toledo HospitalComment on above:Result Comment: Electronically Signed By: Adam SAMPSON, Alirio Hooper\.br\Date and Time Signed: 10/25/23 15:21 EDTAmbulatory Visit Summaryon 97-70-6726Rkpgrclnbe Visit Summary CARMEN BLEDSOE :1960 Visit Date:10/11/2023 Ambulatory Visit Instructions Your Diagnosis Heart failure with preserved ejection fraction Type 2 diabetes mellitus with morbid obesity Benign hypertension Class 3 severe obesity due to excess calories with serious comorbidity in adult BMI 50.0-59.9, adult Your Care Team Attending Physician - Nigel MSN, CAP SIZER-Paris VILLATORO Primary Care Physician - Nigel MSN, CAP SIZER-PHOTO OFFSET PRINTERParis This Is Your Medications List Misc Prescription [...] Adam SAMPSON, Alirio Hooper Where: [facility] [place] Tuesday 1:20 PM EDT With: Nigel SMITH, CAP SIZERParis AYALA Where: [facility] Family Medicine [address] [address]- \.br\ You Need to Schedule the Following Appointments\.br\ Follow Up with Nigel SMITH, Paris ESPINO When: In 2 weeks\.br\ Comments:\.br\ chronic care\.br\ Where:\.br\ [facility] [address]\.br\ [place] [address]\.br\Medications\.br\ What How Much When Why Instructions\.br\ New albuterol (albuterol 0.083% Inh Rochelle 3mL) 3 Milliliter Inhalation Every 6 hours as needed for Shortness of breath or wheezing Refills: 1 Pickup at [facility] #36442\.br\ Changed dulaglutide (Trulicity Pen 1.5 mg/ 0.5 mL subcutaneous solution) 1.5 Milligram Subcutaneous Every week Pickup at [facility] #13391\.br\ Changed spironolactone (spironolactone 25 mg Tab) 1 Tablets By Mouth Every day Duration: 90 Days Pickup at [facility] #60031\.br\Unchanged Misc Prescription (Nebulizer Machine) See instructions Moderate persistent asthma Nebulizer Machine Pickup at [facility] #58008\.br\ Unchanged Misc Prescription (Nebulizer Tubing and Mouthpiece Kit) See instructions Moderate persistent asthma Nebulizer Tubing and Mouthpiece Kit Pickup at [facility] #82152\.br\ Unchanged trazodone (traZODONE 50 mg Tab) 1 Tablets By Mouth Once a day (at bedtime) Pickup at [facility] #48037\.br\ Unchanged albuterol (Ventolin HFA 90 mcg/ inh [...] or concerns \.br\ Pharmacy Information\.br\ [facility]: [address], [place] [id number] [phone]\.br\ \.br\ What How Much When Comments\.br\ Stop [...] personalized treatment goals for you. Generally, the [facility] CampusFapaul [facility] Medicine Office/Clinic Noteon 04-99-7924Cdqbtn Medicine Office/Clinic NoteChief Complaint Pt [facility] [...] by her sister. She was recently at [facility] for difficulty breathing. She was [...] a referral from me to gastrointestinal at [facility] for further evaluation of her hepatomegaly [...] heartfailure) The patient was recently admitted to [facility] on 10/06/2023 due to respiratory distress, which led to a diagnosis of heart failure. She exhausted her spironolactone supply and was subsequently advised to double her Lasix dosage, with the final dose scheduled for today. We will send her a refill for her spironolactone. She has an appointment scheduled with her network engineer administrator, Dr. Ramirez, later this month. Given her recent weight gain, it is evident that fluid accumulation results in a resurgence of her condition. She is also scheduled to consult with a greenhouse staff for an enlarged liver. I am concerned [...] -Take medications as pres (more content not included)...[facility] Toledo HospitalComment on above:Result Comment: Electronically Signed By: Nigel SMITH, CAP SIZER-PHOTO OFFSET PRINTER, Paris Joy\.br\Date and Time Signed: 10/11/23 20:33 EDT\.br\Electronically Co-Signed By: Safia Greenberg\.br\Date and Time Co-Signed: 10/11/23 19:41 EDTPatient Educationon 89-59-4811Rrsioje EducationCardiovascular Heart Failure Exacerbation Heart failure is [...] these instructions at home: Medicines ? Take pzcb-nhg-kzynzbv and prescription medicines only as told by your health care provider. ? Do not stop taking your medicines or change the amount you take. If you are having problems or side effects from your medicines, talk to your health care provider. ? If you are having difficulty paying for your medicines, contact a medical social consultant or your clinic. There are many programs [...] daily tasks (more content not included)...Normal [facility] CenterED Note-Physicianon 83-88-9491KA Note-Physician [id number]#1.00TIFFNormalFisher St. Agnes HospitalBasic Metabolic Profon 97-42-6768Cmewh gap [Moles/Vol]12 mmol/LNormal9-17 [facility], IncComment on above:Performed By: #### BNP, DIME, BMP, TROPI, CDP #### [facility] [address] [place] [address] [place]: KASH Joshialcium [Mass/Vol]9.0 mg/dLNormal8.6-10.4[facility], IncComment on above:Performed By: #### BNP, DIME, BMP, TROPI, CDP #### [facility] [address] [place] [address] [place]: KASH Joshihloride [Moles/Vol]100 mmol/OJojroe55-577RjrniSelect Medical Specialty Hospital - [facility], IncComment on above:Performed By: #### BNP, DIME, BMP, TROPI, CDP #### [facility] [address] [place] [address] [place]: KASH JoshiO2 [Moles/Vol]24 mmol/UDkwqeo52-36VepooSelect Medical Specialty Hospital [facility], IncComforest health medical center on above:Performed By: #### BNP, DIME, BMP, TROPI, CDP #### [facility] [address] [place] [address] [place]: KASH Joshireatinine [Mass/Vol]0.5 mg/dLNormal0.5-0.9[facility], IncComment on above:Performed By: #### BNP, DIME, BMP, TROPI, CDP #### [facility] [address] [place] [address] [place]: Yury Caba MDGFR/1.73 sq M.predicted among non-blacks MDRD (S/P/Bld) [Vol rate/Area]mL/min/{1.73_m2}Normal>60[facility], IncComment on above:Result Comment: These results are not [...] #### BNP, DIME, BMP, TROPI, CDP #### [facility] [address] [place] [address] [place]: Yury Caba MDGlucose [Mass/Vol]122 mg/jLDdcu35-78FfgiyWilson HealthComment on above:Performed By: #### BNP, DIME, BMP, TROPI, CDP #### [facility] [address] [place] [address] [place]: DEZ Joshiotassium [Moles/Vol]3.4 mmol/LLow3.7-5.3MWilson HealthComment on above:Performed By: #### BNP, DIME, BMP, TROPI, CDP #### [facility] [address] [place] [address] [place]: SANDRA Joshiodium [Moles/Vol]136 mmol/BGmwniq798-751KvkkySelect Medical Specialty Hospital - [facility], IncComment on above:Performed By: #### BNP, DIME, BMP, TROPI, CDP #### [facility] [address] [place], [place] [address] [place]: Yury Caba MDUrea nitrogen [Mass/Vol]14 mg/dLNormal8-23[facility], IncComment on above:Performed By: #### BNP, DIME, BMP, TROPI, CDP #### [facility] [address] [place] [id number] [place]: Yury Caba MDBrain Natri. Peptideon 20-36-1455Ffwtywnutys peptide B (Bld) [Mass/Vol]3161 pg/mLHigh<300MerDoctors HospitalComment on above:Result Comment: An age-independent cutoff point of 300 pg/ml has a 98% negative predictive value excluding acute heart failure.Performed By: #### BNP, DIME, BMP, TROPI, CDP #### [facility] [address] [place] [address] [place]: Yury Caba [facility] with Diffon 04-28-7987Pfx. Basophil0.02 k/uL Normal0.00-0.20MerDoctors HospitalComment on above:Performed By: #### BNP, DIME, BMP, TROPI, CDP #### [facility] [address] [place] [address] [place]: Arian Joshi.Imm.Granulocyte0.02 k/uLNormal0.00-0.30MerDoctors HospitalComment on above:Performed By: #### BNP, DIME, BMP, TROPI, CDP #### [facility] [address] [place] [address] [place]: Arian Joshi.Neutrophil (Seg)4.75 k/uLNormal2.5-7.0MerDoctors HospitalComment on above:Performed By: #### BNP, DIME, BMP, TROPI, CDP #### [facility] [address] [place] [id number] [place]: Yury Caba MDBasophils/100 WBC (Bld)0 %Normal0-2MWilson HealthComment on above:Performed By: #### BNP, DIME, BMP, TROPI, CDP #### [facility] [address] [place], [place] [phone] [place]: LENA Joshiosinophils (Bld) [#/Vol]0.03 10*3/uLNormal 0.00-0.40[facility], IncComment on above:Performed By: #### BNP, DIME, BMP, TROPI, CDP #### [facility] [address] [place] [id number] [place]: LENA Joshiosinophils/100 WBC (Bld)1 %Normal0-5[facility], IncComment on above:Performed By: #### BNP, DIME, BMP, TROPI, CDP #### [facility] [address] [place] [id number] [place]: Yury Caba MDErythrocyte distribution width (RBC) [Ratio]13.8 % Htakex46.1-15.2MWilson HealthComment on above:Performed By: #### BNP, DIME, BMP, TROPI, CDP #### [facility] [address] [place] [phone] [place]: Yury Caba MDHematocrit (Bld) [Volume fraction]36.4 %Normal 36.0-46.0[facility], IncComment on above:Performed By: #### BNP, DIME, BMP, TROPI, CDP #### [facility] [address] [place] [phone] [place]: Yury Caba MDHemoglobin (Bld) [Mass/Vol]12.5 g/dLNormal 12.0-16.0[facility], IncComment on above:Performed By: #### BNP, DIME, BMP, TROPI, CDP #### [facility] [address] [place] [address] [place]: Cristin Joshiture granulocytes/100 WBC (Bld)0 %Normal0-5 [facility] Medical Centerment on above:Performed By: #### BNP, DIME, BMP, TROPI, CDP #### [facility] [address] [place] [phone] [place]: Penelope Joshimphocytes (Bld) [#/Vol]0.54 10*3/uLLow1.00-4.80 [facility] on above:Performed By: #### BNP, DIME, BMP, TROPI, CDP #### [facility] [address] [place] [address] [place]: Beatrice Joshihocytes/100 WBC (Bld)9 %Osk24-18QatqvSelect Medical Specialty Hospital - Board[facility], IncComment on above:Performed By: #### BNP, DIME, BMP, TROPI, CDP #### [facility] [address] [place] [phone] [place]: MARIAJOSE Joshi (RBC) [Entitic mass]34.1 vkNmqr51.0-34.0[facility], IncComment on above:Performed By: #### BNP, DIME, BMP, TROPI, CDP #### [facility] [address] [place] [phone] [place]: MARIAJOSE JoshiC (RBC) [Mass/Vol]34.3 g/gAKoimeg15.0-37.0[facility], IncComment on above:Performed By: #### BNP, DIME, BMP, TROPI, CDP #### [facility] [address] [place] [address] [place]: KATHIE JoshiCV (RBC) [Entitic vol]99.2 pOYaqbby79.0-100.0 [facility], IncComment on above:Performed By: #### BNP, DIME, BMP, TROPI, CDP #### [facility] [address] [place] [address] [place]: KATHIE Joshionocytes (Bld) [#/Vol]0.47 10*3/uLNormal0.00-1.00 [facility], IncComforest health medical center on above:Performed By: #### BNP, DIME, BMP, TROPI, CDP #### [facility] [address] [place] [address] [place]: KATHIE Joshionocytes/100 WBC (Bld)8 %Normal4-8[facility], IncComment on above:Performed By: #### BNP, DIME, BMP, TROPI, CDP #### [facility] [address] [place] [address] [place]: Veronika Joshi (Seg)82 %Ygxr15-21QgpwfSelect Medical Specialty Hospital - Boardman, IncComment on above:Performed By: #### BNP, DIME, BMP, TROPI, CDP #### [facility] [address] [place] [address] [place]: Michael Joshi mean volume (Bld) [Entitic vol]9.0 fL Normal6.0-12.0[facility], IncComment on above:Performed By: #### BNP, DIME, BMP, TROPI, CDP #### [facility] [address] [place] [address] [place]: James Joshi (Bld) [#/Vol]176 10*3/nGGnyawt373-999 [facility], IncComment on above:Performed By: #### BNP, DIME, BMP, TROPI, CDP #### [facility] [address] [place] [address] [place]: RHIANNON Joshi (d) [#/Vol]3.67 10*6/uLLow4.00-5.20[facility], IncComment on above:Performed By: #### BNP, DIME, BMP, TROPI, CDP #### [facility] [address] [place] [address] [place]: JAI Joshi ([facility]) [#/Vol]5.8 10*3/uLNormal3.5-11.0[facility], IncComment on above:Performed By: #### BNP, DIME, BMP, TROPI, CDP #### [facility] [address] [place] [address] [place]: CASSIE Joshi-Dimer Teston [id number]-Dimer Test0.68 ug/mL FEUHigh0.00-0.59[facility], IncComment on above:Result Comment: When combined with a [...] #### BNP, DIME, BMP, TROPI, CDP #### [facility] [address] [place] [address] [place]: RHIANNON JoshiAD - MISCon 69-98-6277BYC - MISC [id number]#[id number] St. Agnes HospitalTroponinon 62-18-5053Mfidxwif, High Sens27 ng/LHigh0-14[facility], IncComment on above:Result Comment: High Sensitivity Troponin values cannot be compared with other Troponin methodologies.Performed By: #### BNP, DIME, BMP, TROPI, CDP #### [facility] [address] [place] [address] [place]: Yury Caba, MDXR CHEST (2 VW)on 10-00-5286HR CHEST (2 VW)EXAM: XR CHEST (2 VW) HISTORY: Shortness of breath COMPARISON: None. IMPRESSION: FINDINGS/IMPRESSION: 1. Shallow breath with clear lungs. 2. Mild cardiomegaly. Interpreted by: Casa Minor Jr., MD Signed by: Casa Minor Jr., MD 10/06/23 Final resultNoFlower Hospital LIVERon 63-37-4077MH LIVER EXAMINATION: RIGHT UPPER QUADRANT ULTRASOUND 08/24/2023 [...] Signed by: Braulio Crawley DO 08/24/23 Final resultNoWilson Memorial Hospitaloglobin A1Con 64-76-2571Hmipyii [Mass/Vol]108 mg/dLNoOur Lady of Mercy Hospital - AndersonComment on above:Result Comment: The ADA and AACC recommend providing the estimated average glucose result to permit better patient understanding of their HBA1c result.Performed By: #### GLYHGB, LIPR, URNMAB ####[facility] [address] [place] [address] Lab Director: Agusto Ferrell MD#### DYLAN ANNE, CP, ZFAST ####[facility] [address] [place], [place] [phone] Director: Yury Caba MDHbA1c (Bld) [Mass fraction]5.4 %Normal4.0-6.0 [facility], IncComment on above:Performed By: #### GLYHGB, LIPR, URNMAB ####[facility] [address] [place] [address] Lab Director: Agusto Ferrell MD#### DYLAN ANNE, CP, ZFAST ####[facility] [address] [place] [address] Lab Director: Yury Caba MD Lipid Panelon 59-31-0580Bkhqwzjvxvc [Mass/Vol]206 mg/dLHighNINF - 200 mg/dLBON SHELBY MEMORIAL HOSPITALComment on above: Cholesterol Guidelines: <200 Desirable 200-240 Borderline >240 Undesirable Cholesterol in HDL [Mass/Vol]95 mg/dL40 - PINF mg/dLB[facility] Comment on above: HDL Guidelines: <40 Undesirable 40-59 Borderline >59 Desirable Cholesterol in LDL [Mass/Vol]67 mg/dL0 - 130 mg/dLB[facility] Comment on above: LDL Guidelines: <100 Desirable 100-129 Near to/above Desirable 130-159 Borderline >159 Undesirable Direct (measured) LDL and calculated LDL are not interchangeable tests. Cholesterol.total/Cholesterol in HDL [Mass ratio]2.2 {ratio}NINF - 5B[facility] MEMORIAL HOSPITALInterpretation and review of laboratory resultsAbnormalBON SHELBY MEMORIAL HOSPITALTriglyceride [Mass/Vol]221 mg/dLHighNINF - 150 mg/dLBON [facility] on above: Triglyceride Guidelines: <150 Desirable 150-199 Borderline 200-499 High >499 Very high Based on AHA Guidelines for fasting triglyceride, April 2012. [facility]ORIAL HOSPITALLipid Profileon 94-54-0247Vhwjzrzxwcj [Mass/Vol]206 mg/dLHigh<200[facility] on above:Result Comment: Cholesterol Guidelines: <200 Desirable 200-240 Borderline >240 UndesirablePerformed By: #### GLYHGB, LIPR, URNMAB ####[facility] [address] [place] [address] Lab Director: Agusto Ferrell MD#### DYLAN ANNE, TAINA, ZFAST ####[facility] [address] [place] [address] Lab Director: Yury Caba MD Cholesterol in HDL [Mass/Vol]95 mg/dLNormal>40[facility] on above:Result Comment: HDL Guidelines: <40 Undesirable 40-59 Borderline >59 DesirablePerformed By: #### GLYHGB, LIPR, URNMAB ####[facility] [address] [place] [address] Lab Director: Agusto Ferrell MD#### DYLAN ANNE, CP, ZFAST ####[facility] [address] [place] [address] Lab Director: KASH Joshiholesterol in LDL [Mass/Vol]67 mg/dLNormal0-130[facility] on above:Result Comment: LDL Guidelines: <100 Desirable 100-129 Near to/above Desirable 130-159 Borderline >159 Undesirable Direct (measured) LDL and calculated LDL are not interchangeable tests.Performed By: #### GLYHGB, LIPR, URNMAB ####[facility] [address] [place] [address] Lab Director: Agusto Ferrell MD#### DYLAN ANNE, TAINA, ZFAST ####[facility] [address] [place] [phone] Director: Adan Joshi.total/Cholesterol in HDL [Mass ratio]2.2 {ratio}Normal<5MerDoctors HospitalComment on above:Performed By: #### GLYHGB, LIPR, URNMAB ####[facility] [address] [place] [address] Lab Director: Agusto Ferrell MD#### DYLAN ANNE CP, ZFAST ####[facility] [address] [place] [phone] Director: Yury Caba MDTriglyceride [Mass/Vol]221 mg/dLHigh<150MerDoctors HospitalComment on above:Result Comment: Triglyceride Guidelines: <150 Desirable 150-199 Borderline 200-499 High >499 Very high Based on AHA Guidelines for fasting triglyceride, April 2012.Performed By: #### GLYHGB, LIPR, URNMAB ####[facility] [address] [place] [address] Lab Director: Agusto Ferrell MD#### DYLAN ANNE, TAINA, ZFAST ####[facility] [address] [place] [phone] Director: KATHIE Joshiicroallima.,Random Uron 49-98-0035Vhjytnsiib [Mass/Vol]45.3 mg/zXVtwefu67.0-217.0[facility], IncComment on above: Performed By: #### GLYHGB, LIPR, URNMAB ####[facility] [address]ibgrgjtvmlh[address] [place] [address] Lab Director: Agusto Ferrell MD#### DYLAN ANNE, CP, ZFAST ####[facility] Pez[address] [place], [place] [phone] Lab Director: KATHIE Joshiicroalb/Creat RatioCan not be calculatedNormal<25MerDoctors HospitalComment on above:Performed By: #### GLYHGB, LIPR, URNMAB ####[facility] M[address]wswnh[address] [place] [address] Lab Director: Agusto Ferrell MD#### DYLAN ANNE, CP, ZFAST ####[facility] Aly[address] [place] [phone] Director: KATHIE Joshiicroalbumin conc.<12Normal<21[facility], IncComment on above:Performed By: #### GLYHGB, LIPR, URNMAB ####[facility] [address]othhawil[address] [place] [address] Lab Director: Agusto Ferrell MD#### DYLAN ANNE, CP, ZFAST ####[facility] Ovh[address] [place] [address] lab Director: Yury Caba MD Microalbumin, Uron [id number] DL <= 20 mg/L (U) [Mass/Vol]mg/LNINF - 21 mg/LBON [facility]LBY MEMORIAL HOSPITALAlbumin/Creatinine DL <= 20 mg/L (U) [Ratio]Can not be calculatedNIBON SECOURS ST. MARY'S HOSPITALCreatinine (U) [Mass/Vol]45.3 mg/dL28.0 - 217.0 mg/dLBON LEWIS AND CLARK SPECIALTY HOSPITALXR HIP 2-3 VW W PELVIS RIGHTon [id number] HIP 2-3 VW W PELVIS RIGHTEXAM: XR [...] Signed by: Zaid Romero MD 08/11/23 Final resultNoOur Lady of Mercy Hospital - AndersonXR Pelvis and Hip - right 2 Viewson 08-11-2023 Moderate degenerative joint space narrowing involves right hip without an acute osseous abnormality identified. [facility] CONSOLIDATEDEXAM: XR HIP 2-3 VW W [...] hip shows no fracture or stress injury. [facility] Zaid Pena MD - 08/11/2023 EXAM: [...] hip without an acute osseous abnormality identified. [facility] LXSN [facility]FAIRHILLXR Pelvis and Hip - right 2 ViewsOrdered By: Zaid Romero on [id number] SAGE MEMORIAL HOSPITALHemosphere Work Phone: cbc with Auto Differentialon [id number] (Bld) [#/Vol]0.03 10*3/uLBON SAGE MEMORIAL [email or web address] [facility]-FAIRHILLBasophils/100 WBC (Bld)1 %0 - 2 %[facility] AFF[facility]IRS MEDICAL [email or web address] [facility]-FAIRHILLEosinophils (Bld) [#/Vol]0.03 10*3/uLBON SAGE MEMORIAL [email or web address] [facility]-FAIRHILLEosinophils/100 WBC (Bld)1 %0 - 5 %[facility] LXSN [facility]-FAIRHILLErythrocyte distribution width (RBC) [Ratio]14.6 %12.1 - 15.2 %[facility] Hematocrit (Bld) [Volume fraction]38.8 %36.0 - 46.0 %[facility] Hemoglobin (Bld) [Mass/Vol]12.8 g/dL12.0 - 16.0 g/dLBON [facility] Immature granulocytes (Bld) [#/Vol]0.01 10*3/uLBON SHELBY MEMORIAL HOSPITALImmature granulocytes/100 WBC (Bld)0 %0 - 5 %[facility] CENTERInterpretation and review of laboratory resultsAbnormalBON SHELBY MEMORIAL HOSPITALLymphocytes/100 WBC (Bld)22 %15 - 40 %[facility] MEDICAL CENTERLymphocytes/100 WBC (Bld)0.98 %LowBON [facility] NORTHH (RBC) [Entitic mass]33.9 pg26.0 - 34.0 pgBON [facility] NORTHHC (RBC) [Mass/Vol]33.0 g/dL31.0 - 37.0 g/dLBON [facility]OS[facility] NORTHV (RBC) [Entitic vol]102.6 uHNvse06.0 - 100.0 fLCHESAPEAKE REGIONAL MEDICAL [facility]ENTER Monocytes/100 WBC (Bld)8 %4 - 8 %[facility] CENTERMonocytes/100 WBC (Bld) 0.34 %[facility] MEDICAL CENTERNeutrophils/100 WBC (Bld)68 %47 - 75 %[facility] MEDICAL CENTERPlatelet mean volume (Bld) [Entitic vol]9.0 fL6.0 - 12.0 fLCHESAPEAKE REGIONAL MEDICAL CENTERPlatelets (Bld) [#/Vol]192 10*3/uLBON [facility]OS[facility]ITAL RBC (Bld) [#/Vol]3.78 10*6/uLLow4.00 - 5.20 m/uLCHESAPEAKE REGIONAL MEDICAL CENTER Segmented neutrophils/100 WBC (Bld)2.99 %[facility] MEDICAL CENTERWBC other (Bld) [#/Vol]4.4B[facility] HOSPITALCBC with Diffon [id number]. Basophil0.03 k/uLNormal0.00-0.20[facility], IncComment on above:Performed By: #### GLYHGB, LIPR, URNMAB ####[facility] [address]tc[address] [place] [address] Lab Director: Agusto Ferrell MD#### DIMDarlene, CDP, CP, ZFAST ####[facility] T[address] [place] [address] Lab Director: Arian Joshi.Imm.Granulocyte0.01 k/uL Normal0.00-0.30[facility], IncComment on above:Performed By: #### GLYHGB, LIPR, URNMAB ####[place] [phone] Director: Agusto Ferrell MD#### DAYANA, DYLAN, CP, ZFAST ####[place] [address] Lab Director: Arian Joshi.Neutrophil (Seg)2.99 k/uLNormal2.5-7.0[facility], IncComment on above:Performed By: #### GLYHGLima, LIPR, URNMAB ####[place] [address] Lab Director: Agusto Ferrell MD#### DAYANA, CDP, CP, ZFAST ####[facility] [address] [place] [address] Lab Director: Yury Caba MD Basophils/100 WBC (Bld)1 %Normal0-2MWilson HealthComment on above: Performed By: #### GLYHGB, LIPR, URNMAB ####[facility] [address] [place] [address] Lab Director: Agusto Ferrell MD#### DIME, CDP, CP, ZFAST ####[facility] Dxd[address] [place], [place] [address])[phone] Director: Yury Caba MDEosinophils (Bld) [#/Vol]0.03 10*3/uLNormal0.00-0.40[facility], IncComment on above:Performed By: #### GLYHGB, LIPR, URNMAB ####[facility] [address]we[address] [place] [address] Lab Director: Agusto Ferrell MD#### DIME, CDP, CP, ZFAST ####[facility] Pcc[address] [place], [place] [address])[phone] Director: Yury Caba MDEosinophils/100 WBC (Bld)1 %Normal0-5[facility], IncComment on above:Performed By: #### GLYHGB, LIPR, URNMAB ####[place], [place] [address])[phone] Director: Agusto Ferrell MD#### DIMDarlene, DYLAN, CP, ZFAST ####[facility] [address] [place], [place] [address])[phone] Director: Yury Caba MD Erythrocyte distribution width (RBC) [Ratio]14.6 %Krnqbt67.1-15.2MWilson HealthComment on above:Performed By: #### GLYHGB, LIPR, URNMAB ####[address] [place], [place] [address])[phone] Director: Agusto Ferrell MD#### DIME, CDP, CP, ZFAST ####[facility] [address]vb[address] [place] [address] Lab Director: Yury Caba MD Hematocrit (Bld) [Volume fraction]38.8 %Euunoq40.0-46.0[facility] Inc Comment on above:Performed By: #### GLYHGB, LIPR, URNMAB ####[facility] [address]rkid[address] [place] [address] Lab Director: Agusto Ferrell MD#### DIME, CDP, CP, ZFAST ####[facility] [address] [place] [address] Lab Director: Yury Caba MD Hemoglobin (Bld) [Mass/Vol]12.8 g/zDZqwqxw59.0-16.0[facility], IncComment on above:Performed By: #### GLYHGB, LIPR, URNMAB ####[facility] V[address]ijuq[address] [place] [address] Lab Director: Agusto Ferrell MD#### DIME, CDP, CP, ZFAST ####[facility] S[address] [place], [place] [address])[phone] Director: Yury Caba MDImmature granulocytes/100 WBC (Bld)0 %Normal0-5[facility], IncComment on above: Performed By: #### GLYHGB, LIPR, URNMAB ####[facility] [address]jlzu[address] [place] [address] Lab Director: Agusto Ferrell MD#### DIME, CDP, CP, ZFAST ####[facility] Yae[address] [place] [address] Lab Director: Yury Caba MDLymphocytes (Bld) [#/Vol]0.98 10*3/uLLow1.00-4.80[facility] on above:Performed By: #### GLYHGB, LIPR, URNMAB ####[facility] [address]fu[address] [place] [address] Lab Director: Agusto Ferrell MD#### DIME, CDP, CP, ZFAST ####[facility] S[address] [place], [place] [phone] Director: Yury Caba MDLymphocytes/100 WBC (Bld)22 %Qnrroo52-78AvkmkSelect Medical Specialty Hospital - Board[facility], IncComment on above:Performed By: #### GLYHGB, LIPR, URNMAB ####[facility] [address] [place] [address] Lab Director: Agusto Ferrell MD#### DIME, CDP, CP, ZFAST ####[facility] [address] [place], [place] [address] Lab Director: Yury Caba MD MCH (RBC) [Entitic mass]33.9 rgUgiwpt58.0-34.0[facility], IncComment on above:Performed By: #### GLYHGB, LIPR, URNMAB ####[address] [place] [address] Lab Director: Agusto Ferrell MD#### DIME, CDP, CP, ZFAST ####[facility] Ziq[address] [place] [address] Lab Director: MARIAJOSE JoshiC (RBC) [Mass/Vol]33.0 g/dL Xjbjlt00.0-37.0[facility], IncComment on above:Performed By: #### GLYHGB, LIPR, URNMAB ####[facility] [address]wl[address] [place], [place] [phone] Director: Agusto Ferrell MD#### DIME, CDP, CP, ZFAST ####[facility] [address]hx[address] [place] [address] Lab Director: KATHIE JoshiCV (RBC) [Entitic vol]102.6 pWGidw71.0-100.0[facility], IncComment on above:Performed By: #### GLYHGB, LIPR, URNMAB ####[facility] [address]md[address] [place] [address] Lab Director: Agusto Ferrell MD#### DIME, CDP, CP, ZFAST ####[facility] Msr[address] [place] [address] Lab Director: Yury Caba MD Monocytes (Bld) [#/Vol]0.34 10*3/uLNormal0.00-1.00[facility], IncComment on above:Performed By: #### GLYHGB, LIPR, URNMAB ####[facility] [address]unxch[address] [place] [address] Lab Director: Agusto Ferrell MD#### DIME, CDP, CP, ZFAST ####[facility] Mtd[address] [place] [address] Lab Director: Yury Caba MDMonocytes/100 WBC (Bld)8 %Normal4-8[facility], IncComment on above:Performed By: #### GLYHGB, LIPR, URNMAB ####[facility] U[address] [place] [address] Lab Director: Agusto Ferrell MD#### DIMDarlene, CDP, CP, ZFAST ####[facility] [address]kf[address] [place] [phone] Director: Yury Caba MDNeutrophil (Seg)68 %Jrcldh30-05LtscoSelect Medical Specialty Hospital - Boardman, IncComment on above:Performed By: #### GLYHGB, LIPR, URNMAB ####[facility] [address]prvl[address] [place] [address] Lab Director: Agusto Ferrell MD#### DIME, CDP, CP, ZFAST ####[facility] Uhz[address] [place] [address] Lab Director: DEZ Joshilatelet mean volume (Bld) [Entitic vol]9.0 fLNormal6.0-12.0[facility] Comment on above:Performed By: #### GLYHGB, LIPR, URNMAB ####[facility] Yt[address]brovhf[address] [place] [address] Lab Director: Agusto Ferrell MD#### DIME, CDP, CP, ZFAST ####[facility] Jil[address] [place] [address] Lab Director: Yury Caba MD Platelets (Bld) [#/Vol]192 10*3/pDUzcrcj114-717WlzonSelect Medical Specialty Hospital - Board[facility], IncComment on above:Performed By: #### GLYHGB, LIPR, URNMAB ####[facility] R[address]jcwtr[address]mcx[address] [place], [place] [phone] Director: Agusto Ferrell MD#### DIME, CDP, CP, ZFAST ####[facility] Fir[address] [place], [place] [address])[phone] Director: RHIANNON JoshiBC (Bld) [#/Vol]3.78 10*6/uLLow 4.00-5.20[facility], IncComment on above:Performed By: #### GLYHGB, LIPR, URNMAB ####[facility] [address]fr[address] [place] [address] Lab Director: Agusto Ferrell MD#### DIME, CDP, CP, ZFAST ####[facility] Xyb[address] [place] [address] Lab Director: Yury Caba MDWBC (Bld) [#/Vol]4.4 10*3/uLNormal3.5-11.0[facility] Comment on above:Performed By: #### GLYHGB, LIPR, URNMAB ####[facility] [address]bl[address]kr[address] [place] [address] Lab Director: Agusto Ferrell MD#### DIME, CDP, CP, ZFAST ####[facility] Jho[address] [place] [address] Lab Director: KASH Joshisalt lake regional medical center Metabolic Profon 53-20-1628Ogggftl [Mass/Vol]4.3 g/dLNormal3.5-5.2MWilson HealthComment on above:Performed By: #### GLYHGB, LIPR, URNMAB ####[facility] [place], [place] [phone] Director: Agusto Ferrell MD#### DYLAN ANNE CP, ZFAST ####[facility] Fkm[address] [place], [place] [address])[phone] Director: Arcelia Joshi Lucq994 U/LYufk68-197OytccSelect Medical Specialty Hospital - Board[facility], IncComment on above:Performed By: #### GLYHGB, LIPR, URNMAB ####[address] [place] [address] Lab Director: Agusto Ferrell MD#### DYLAN ANNE CP, ZFAST ####[facility] F[address] [place] [phone] Director: Yury Caba MDALT [Catalytic activity/Vol]84 U/LHigh5-33 [facility], IncComment on above:Performed By: #### GLYHGB, LIPR, URNMAB ####[facility] [address]viksx[address]17 [place] [address] Lab Director: Agusto Ferrell MD#### DYLAN ANNE CP, ZFAST ####[facility] [address] [place] [address] Lab Director: Yury Caba MD Anion gap [Moles/Vol]13 mmol/LNormal9-17[facility], IncComment on above: Performed By: #### GLYHGB, LIPR, URNMAB ####[facility] [address]wt[address]ub[address] [place] [address] Lab Director: Agusto Ferrell MD#### DIMDarlene, CDP, CP, ZFAST ####[facility] Qnb[address]47 [place] [address] Lab Director: Yury Caba MDAST [Catalytic activity/Vol]83 U/LHigh<32[facility], IncComment on above:Performed By: #### GLYHGB, LIPR, URNMAB ####[facility] [address]ql[address] [place] [phone] Director: Agusto Ferrell MD#### DAYANA, DYLAN, CP, ZFAST ####[facility] Oax[address] [place] [address] Lab Director: Yury Caba MDBilirubin [Mass/Vol]0.4 mg/dLNormal0.3-1.2MWilson Health Comment on above:Performed By: #### GLYHGB, LIPR, URNMAB ####[facility] [place] [address] Lab Director: Agusto Ferrell MD#### DIMDarlene, CDP, CP, ZFAST ####[facility] Mbx[address]94 [place] [address] Lab Director: Yury Caba MDBUN/CRE Wzqqd97Zxiqsh1-05Ozddk Willard HospitalComment on above:Performed By: #### GLYHGB, LIPR, URNMAB ####[facility] [address]ith[address]yncmi[address] [place] [address] Lab Director: Agusto Ferrell MD#### DIME, CDP, CP, ZFAST ####[facility] Tps[address] [place] [phone] Director: KASH Joshialcium [Mass/Vol]9.3 mg/dLNormal8.6-10.4[facility], IncComment on above:Performed By: #### GLYHGB, LIPR, URNMAB ####[facility] [address]qu[address]jmbyx4097 [place] [address] Lab Director: Agusto Ferrell MD#### DAYANA, DYLAN, CP, ZFAST ####[facility] [address] [place] 366[address] Lab Director: Yury Caba MD Chloride [Moles/Vol]98 mmol/YMbbcoe22-010WiygqSelect Medical Specialty Hospital - Board[facility], IncComment on above: Performed By: #### GLYHGB, LIPR, URNMAB ####[facility] [address]wg[address] [place] [address] Lab Director: Agusto Ferrell MD#### DAYANA, DYLAN, CP, ZFAST ####[facility] [address] [place] [address] Lab Director: KASH JoshiO2 [Moles/Vol]26 mmol/LNormal 20-31[facility], IncComment on above:Performed By: #### GLYHGB, LIPR, URNMAB ####[facility] [address]xl[address]408 [place] [address] Lab Director: Agusto Ferrell MD#### DYLAN ANNE, CP, ZFAST ####[facility] [address] [place] 366[address] Lab Director: KASH Joshireatinine [Mass/Vol]0.6 mg/dLNormal0.5-0.9[facility] on above:Performed By: #### GLYHGB, LIPR, URNMAB ####[facility] [address]yrv[address] [place] [address] Lab Director: Agusto Ferrell MD#### DYLAN ANNE, CP, ZFAST ####[facility] Dgk[address] [place], [place] 97785[address] Lab Director: Yury Caba MDGFR/1.73 sq M.predicted among non-blacks MDRD (S/P/Bld) [Vol rate/Area]mL/min/{1.73_m2} Normal>60MerDoctors HospitalComment on above:Result Comment: These results are [...] that affects renal tubular secretion.Performed By: #### GLYHGLima LIPR, URNMAB ####[address] [address] Lab Director: Agusto Ferrell MD#### DYLAN ANNE CP, ZFAST ####[facility] Zli[address] [place], [place] 4331590 Lab Director: Yury Caba MDGlucose [Mass/Vol]91 mg/lGRfxdem74-28FgjduWilson HealthComment on above:Performed By: #### GLYHGLima, LIPR, URNMAB ####[facility] [address] [place] [address] Lab Director: Agusto Ferrell MD#### DYLAN ANNE CP, ZFAST ####[facility] Npg[address] [place], [place] 9365890 Lab Director: DEZ Joshiotassium [Moles/Vol]4.3 mmol/L Normal3.7-5.3MWilson HealthComment on above:Performed By: #### GLYHGB, LIPR, URNMAB ####[address] [phone] Director: Agusto Ferrell MD#### DYLAN ANNE, CP, ZFAST ####[facility] B[address] [place], [place] [address])[phone] Director: DEZ Joshirotein [Mass/Vol]7.2 g/dLNormal6.4-8.3MWilson Health Comment on above:Performed By: #### GLYHGB, LIPR, URNMAB ####[address] [place] [address] Lab Director: Agusto Ferrell MD#### DYLAN ANNE, CP, ZFAST ####[facility] [address] [place] [address] Lab Director: SANDRA Joshiodium [Moles/Vol]137 mmol/MEphprh961-928RirecSelect Medical Specialty Hospital - Boardman, IncComment on above: Performed By: #### GLYHGB, LIPR, URNMAB ####[address] [place] [address] Lab Director: Agusto Ferrell MD#### DYLAN ANNE, CP, ZFAST ####[facility] [address] [place] 36626[address] Lab Director: Yury Caba MDUrea nitrogen [Mass/Vol]10 mg/dL Normal8-23[facility], IncComment on above:Performed By: #### GLYHGB, LIPR, URNMAB ####[facility] [address] [place] [phone] Director: Agusto Ferrell MD#### DYLAN ANNE, CP, ZFAST ####[facility] [address] [place] [phone] Lab Director: KASH Joshiomprehensive Metabolic Panelon 86-51-8531Daqzbkq [Mass/Vol]4.3 g/dL3.5 - 5.2 g/dLBON SECOURS MERCY HEALTHALP [Catalytic activity/Vol]169 U/L High35 - 104 U/LBON SECOURS [facility] HEALTHALT [Catalytic activity/Vol]84 U/LHigh5 - 33 U/LBON SECOURS [facility]OR HOSPITALAnion gap [Moles/Vol]13 mmol/L9 - 17 mmol/LBON SECW[facility] HEALTHAST [Catalytic activity/Vol]83 U/LHighNINF - 32 U/LBON SECOURS [facility] HEALTHBilirubin [Mass/Vol]0.4 mg/dL0.3 - 1.2 mg/dLBON SECWILLIS-KNIGHTON B[facility]SI[facility] HEALTHCalcium [Mass/Vol]9.3 mg/dL8.6 - 10.4 mg/dLBON [facility]. [facility] HEALTH Chloride [Moles/Vol]98 mmol/L98 - 107 mmol/LBON SECWILLIS-[facility] B[facility] HEALTHCO2 [Moles/Vol]26 mmol/L20 - 31 mmol/LBON [facility] HEALTHCreatinine [Mass/Vol] 0.6 mg/dL0.5 - 0.9 mg/dLBON SHELBY MEMORIAL HOSPITALGFR/1.73 sq M.predicted MDRD (S/P/Bld) [Vol rate/Area]- PINFBON SHELBY MEMORIAL HOSPITALComment on above: These results are [...] secretion. Glucose [Mass/Vol]91 mg/dL70 - 99 mg/dLBON SHELBY MEMORIAL HOSPITALInterpretation and review of laboratory resultsAbnormalBON SEC[facility] HEALTHPotassium [Moles/Vol]4.3 mmol/L3.7 - 5.3 mmol/LBON [facility] HEALTHProtein [Mass/Vol] 7.2 g/dL6.4 - 8.3 g/dLBON ST. [facility] HEALTHSodium [Moles/Vol]137 mmol/L135 - 144 mmol/LBON [facility] [facility] HEALTHUrea nitrogen [Mass/Vol]10 mg/dL8 - 23 mg/dL BON SHELBY MEMORIAL HOSPITALUrea nitrogen/Creatinine [Mass ratio]17 mg/mg9 - 20[facility] CENTERD-Dimer Teston [id number]-Dimer Test0.51 ug/mL FEUNormal0.00-0.59[facility] on above:Result Comment: When combined with [...] distal DVT.Performed By: #### GLYHGB, LIPR, URNMAB ####[facility] [address]hp[address] [place], [place] 7855[address] Lab Director: Agusto Ferrell MD#### DAYANA, DYLAN, CP, ZFAST ####[facility] [address] [place] [address] Lab Director: CASSIE Joshi-Dimer, Quantitativeon 71-59-0317Brfawx D-dimer FEU (PPP) [Mass/Vol]0.51[facility] on above: When combined with a low [...] more prevalent in patients with distal DVT. [facility] CENTERPatient fasting?on 10-10-4804Dbbcvmz fasting?Patient RefusedNoOur Lady of Mercy Hospital - AndersonComment on above:Performed By: #### GLYHGB, LIPR, URNMAB ####[facility] [address] [place] [phone] Director: Agusto Ferrell MD#### DYLAN ANNE, CP, ZFAST ####[facility] [address] [place], [place] 7017[address] Lab Director: JEANNA Joshi Pelvis and Hip - right 2 Viewson 10-32-7066Vlttbtzyk Study observation (narrative)[facility] MEDICAL CENTERVL DUP LOWER EXTREMITY VENOUS BILATERALon 12-01-2022 Negative. [facility] CONSOLIDATEDEXAM: VL DUP LOWER EXTREMITY VENOUS BILATERAL REFLUX STUDY. HISTORY: Bilateral leg swelling and pain, 3 months. Fatigue, unspecified type. COMPARISON: None. TECHNIQUE: Compression and augmentation with velocity measurements of the superficial venous system both lower extremities. Evaluation of the deep venous system bilaterally for thrombus. FINDINGS: No reflux. No thrombus from the groin through the calf within the superficial or deep system bilaterally. [facility] Casa Ulloa Jr., MD - 12/01/2022 [...] superficial or deep system bilaterally. IMPRESSION: Negative. [employer] Phone: radiology Study observation (narrative)[employer] Phone: VL DUP LOWER EXTREMITY VENOUS BILATERALOrdered By: Casa Minor on [id number] Interactive Phone: XR CERVICAL SPINE (4-5 VIEWS)on 10-19-2022 FINDINGS/IMPRESSION: 1. Moderate disc space narrowing and anterior osteophyte formation from C4-C5 inferiorly. 2. Intervertebral foramina show minimal narrowing bilaterally due to facet and uncovertebral osteophytes. 3. No fracture. [facility] RIS CONSOLIDATEDEXAM: XR CERVICAL SPINE (4-5 VIEWS). HISTORY: Left hand weakness. COMPARISON: None. [facility] Casa Ulloa Jr., MD - 10/19/2022 EXAM: XR CERVICAL SPINE (4-5 VIEWS). HISTORY: Left hand weakness. COMPARISON: None. IMPRESSION: FINDINGS/IMPRESSION: 1. Moderate disc space narrowing and anterior osteophyte formation from C4-C5 inferiorly. 2. Intervertebral foramina show minimal narrowing bilaterally due to facet and uncovertebral osteophytes. 3. No fracture. [employer] Phone: radiology Study observation (narrative)[employer] Phone: XR CERVICAL SPINE (4-5 VIEWS)Ordered By: Casa Minor on [id number] Interactive Phone: XR LUMBAR SPINE (MIN 4 VIEWS)on 10-19-2022 FINDINGS/IMPRESSION: 1. Moderate to moderately severe diffuse disc space narrowing and osteophyte formation similar to previous. 2. Mild facet degenerative change L4-L5 and L5-S1. 3. No fracture or pars defects. 4. Slight convex right lumbar curve unchanged. [facility] CONSOLIDATEDEXAM: XR LUMBAR SPINE (MIN 4 VIEWS) HISTORY: Weakness of both legs COMPARISON: CT abdomen and pelvis 02/07/2020. [facility] Casa Ulloa Jr., MD - 10/19/2022 [...] Slight convex right lumbar curve unchanged. [facility] [employer] Work Phone: radiology Study observation (narrative)[facility] [employer] Work Phone: XR LUMBAR SPINE (MIN 4 VIEWS)Ordered By: Casa Minor on [id number] [facility] [employer] Work Phone: Glucose, Whole Bloodon [id number] [Mass/Vol]127 mg/eQQpzz03 - 99 mg/dL[address] [facility] FloqqInterpretation and review of laboratory resultsAbnormPage Memorial Hospital FloqqPOCT glucoseOrdered By: Barrington Prescott on 99-49-5229Ukupbqsudrfpoy and review of laboratory resultsNormCentra [facility] FloqqQC [place]?y[facility] Floqq [facility] FloqqBrain Natriuretic Peptideon 05-77-8551Ueovamnqgdm peptide B (Bld) [Mass/Vol]42 pg/mLNINF - 300 pg/mLDOM[facility] Floqq Comment on above: An age-independent cutoff point of 300 pg/ml has a 98% negative predictive value excluding acute heart failure. CBC with Auto Differentialon 79-07-3427Yyhvhbgj Eos #0.10[facility] FloqqAbsolute Lymph #1.60[facility] FloqqAbsolute Hawkins #0.40[facility]PITALBasophils (Bld) [#/Vol]0.00 10*3/uLBON [facility] Basophils/100 WBC (Bld)1 %0 - 2 %[facility] CENTERDifferential TypeYESBON SHELBY MEMORIAL HOSPITALEosinophils/100 WBC (Bld)2 %0 - 5 %[facility] Hematocrit (Bld) [Volume fraction]41.4 %36 - 46 %[facility] Hemoglobin (Bld) [Mass/Vol]13.5 g/dL12.0 - 16.0 g/dLB[facility] Interpretation and review of laboratory resultsAbnormalB[facility] Lymphocytes/100 WBC (Bld)24 %15 - 40 %[facility] CENTERH (RBC) [Entitic mass]30.8 pg26 - 34 pgBON [facility] NORTHHC (RBC) [Mass/Vol]32.7 g/dL31 - 37 g/dLBON SHELBY MEMORIAL HOSPITALMCV (RBC) [Entitic vol]94.3 fL80 - 100 fLBON SHELBY MEMORIAL HOSPITALMonocytes/100 WBC (Bld)5 %4 - 8 %[facility] Platelet distribution width (Bld) [Ratio]16.4 %High12.1 - 15.2 %[facility] CENTERPlatelets (Bld) [#/Vol]264 10*3/uLBON SHELBY MEMORIAL HOSPITALRBC (Bld) [#/Vol]4.39 10*6/uL4.0 - 5.2 m/uLCHESAPEAKE REGIONAL MEDICAL CENTERSegmented neutrophils/100 WBC (Bld)68 %47 - 75 %[facility]ENTERSegs Absolute4.70 [facility] CENTERWBC (Bld) [#/Vol]6.9 10*3/uLBON [facility]TY HOSPITALCMPon 60-34-1191Cltommg [Mass/Vol]4.4 g/dL3.5 - 5.2 g/dLBON SHELBY MEMORIAL HOSPITALALP [Catalytic activity/Vol]86 U/L35 - 104 U/LBON [facility]OSPITALALT [Catalytic activity/Vol]33 U/L5 - 33 U/LB[facility] Anion gap [Moles/Vol]14 mmol/L9 - 17 mmol/LBON [facility] HEALTHAST [Catalytic activity/Vol]29 U/LNINF - 32 U/LB[facility] HEALTHBilirubin [Mass/Vol]0.3 mg/dL0.3 - 1.2 mg/dLBON [facility] MERCY HEALTHCalcium [Mass/Vol]8.8 mg/dL8.6 - 10.4 mg/dLBON [facility] MERCY HEALTHChloride [Moles/Vol]96 mmol/LLow98 - 107 mmol/LBON [facility] MERCY HEALTHCO2 [Moles/Vol]23 mmol/L20 - 31 mmol/LBON [facility] HEALTHCreatinine [Mass/Vol]0.8 mg/dL0.50 - 0.90 mg/dLB[facility] MERCY HEALTHGFR/1.73 sq M.predicted MDRD (S/P/Bld) [Vol rate/Area]- PINFBON SECCLEVELAND CLINIC AVON HOSPITALComment on above: These results are not [...] that affects renal tubular secretion. Glucose [Mass/Vol]108 mg/vXHlnn83 - 99 mg/dLBON [facility]OU[facility] MERCY HEALTHPotassium [Moles/Vol]3.9 mmol/L3.7 - 5.3 mmol/LBON [facility]RS MERCY HEALTHProtein [Mass/Vol] 7.4 g/dL6.4 - 8.3 g/dLBON [facility]RS MERCY HEALTHSodium [Moles/Vol]133 mmol/LRfg956 - 144 mmol/LBON [facility]RS MERCY HEALTHUrea nitrogen [Mass/Vol]11 mg/dL6 - 20 mg/dLBON SECOURS MERCY HEALTHUrea nitrogen/Creatinine (Bld) [Mass ratio]149 - 20 [facility] MuseStormY HEALTHEthanolon 12-51-9709Vyoidbr [Mass/Vol]230 mg/dLHighNINF - 10 mg/dLBON SECOURS MERCY HEALTHEthanol percent0.23 %[facility] MEDICAL CENTERHemosphere No Panel Informationon 25-71-0380YMJ [facility] HOSPITALOrbotixInterpretation and review of laboratory resultsAbnormalINOVA HEALTH SYSTEM WooopTroponinon 35-37-4122Szjpnvbm I.cardiac DL <= 0.01 ng/mL [Mass/Vol]6 ng/L0 - 14 ng/LBON [facility] MEM[facility]IAL HOSPITALHemosphereComment on above:High Sensitivity Troponin values cannot be compared with other Troponin methodologies.XR CHEST PORTABLEon 10-14-2022 1. Mild cardiomegaly. 2. Mild bibasilar atelectasis. [facility] CONSOLIDATEDEXAM: XR CHEST PORTABLE HISTORY: Reason for exam:->sob COMPARISON: Portable chest from 06/18/2018. TECHNIQUE: Portable chest was done at 9:46 PM. FINDINGS: Trachea, mediastinum and diaphragm are unremarkable. Heart size is mildly prominent. Mild bibasilar atelectasis is noted. No effusion or nodule or thorax is noted. Bony elements are intact. [facility] Monroe De La Fuente, DO - [...] 1. Mild cardiomegaly. 2. Mild bibasilar atelectasis. [facility] [employer] Work Phone: radiology Study observation (narrative)[facility] [employer] Work Phone: XR CHEST PORTABLEOrdered By: Monroe Grant on 10-14-2022 [facility] [employer] Work Phone: CKon [phone] [Catalytic activity/Vol]39 U/L26 - 192 U/LBON [facility]IAL HOSPITALHemosphereEDWARD P. BOLAND DEPARTMENT OF VETERANS AFFAIRS MEDICAL CENTERHemosphereVitamin D 25 Hydroxyon 96-18-120092031541-hfqhkgpwmakloz D3 [Mass/Vol]19.9 ng/mLLow29.9 - PINF ng/mLBON SHELBY MEMORIAL HOSPITALComment on above: Reference Range: Vitamin D status Range Deficiency <20 ng/mL Mild Deficiency 20-30 ng/mL Sufficiency 30-100 ng/mL Toxicity >100 ng/mL Interpretation and review of laboratory resultsAbnormalBON MOBRIDGE REGIONAL HOSPITALCHEMISTRYOrdered By: SYSTEM SYSTEM on 03-92-3139Faalm gap [Moles/Vol]11 mmol/LNormal6 - 16 mEq/LFTMC RemisolCalcium [Mass/Vol]9.2 mg/dLNormal8.9 - 11.1 mg/dLFTMC RemisolChloride [Moles/Vol]100 mmol/YCkr974 - 111 mmol/LFTMC RemisolCO2 [Moles/Vol]28 mmol/OHoxrot87 - 31 mmol/LFTMC Remisol Creatinine [Mass/Vol]0.8 mg/dLNormal0.5 - 1.3 mg/dLFTMC RemisolGFR/1.73 sq M.predicted among blacks MDRD (S/P/Bld) [Vol rate/Area]mL/min/1.73 s0Gnkmhq >=59mL/min/1.73 m2FT Chem SGFR/1.73 sq M.predicted among non-blacks MDRD (S/P/Bld) [Vol rate/Area]mL/min/1.73 i8Wbaeab>=59mL/min/1.73 m2FT Chem S Glucose [Mass/Vol]180 mg/wEIxijea72 - 199 mg/dLFTMC RemisolMagnesium [Mass/Vol] 2.4 mg/dLNormal1.3 - 2.4 mg/dLFTMC RemisolPotassium [Moles/Vol]4.2 mmol/LNormal 3.5 - 5.3 mmol/LFTMC RemisolSodium [Moles/Vol]135 mmol/HNwfdip474 - 145 mmol/L [facility] RemisolUrea nitrogen [Mass/Vol]12 mg/dLNormal5 - 21 mg/dLFTMC RemisolUrea nitrogen/Creatinine [Mass ratio]15 mg/jmYodhnb16 - 20FTMC RemisolCHEMISTRY Ordered By: SYSTEM SYSTEM on 00-09-5508Rugwnvlzg [Mass/Vol]2.8 mg/dLHigh1.3 - 2.4 mg/dLNORTHEASTERN [facility] SYSTEM [facility] RemisolGlucose Glucometer (BldC) [Mass/Vol]Ordered By: José Sanchez on 20-35-6068Ylojopk [Mass/Vol]248 mg/dLBarney Children'S Medical Center Comment on above:Random Glucose Reference Range is dependent on time and content of last meal. Glucose of more than 200 mg/dL in a nonstressed, ambulatory subject supports the diagnosis of Diabetes Mellitus.Glucose Poct Glucometerson 65-15-7253Krxacwm [Mass/Vol]248 mg/dLNoOhioHealth [facility] Comment on above:Result Comment: Random Glucose Reference Range is dependent on time and content of last meal. Glucose of more than 200 mg/dL in a nonstressed, ambulatory subject supports the diagnosis of Diabetes Mellitus. PERFORMED BY: [facility] [address] [place] [address] PATHOLOGIST DATA STEWARD EZRA MCCLAIN M.D.Performed By: #### GLULS #### Point of Care testing ,Glucose [Mass/Vol]253 mg/dLNoOhioHealth Arthur G.H. Bing, MD, Cancer CenterComment on above:Result Comment: Random Glucose Reference Range is dependent on time and content of last meal. Glucose of more than 200 mg/dL in a nonstressed, ambulatory subject supports the diagnosis of Diabetes Mellitus. PERFORMED BY: [facility] [address] [address] PATHOLOGIST DATA STEWARD EZRA MCCLAIN M.D.Performed By: #### GLULS #### Point of Care testing ,Alanine aminotransferase [Enzymatic activity/volume] in Serum or PlasmaOrdered By: Marilyn Sun on 17-04-5078OKW [Catalytic activity/Vol]59 U/L7-52[facility] Medical CenterAlbumin [Mass/volume] in Serum or Plasma by Bromocresol green (BCG) dye binding methoOrdered By: Marilyn Sun on 53-35-6242Gjvisur BCG dye [Mass/Vol]4.6 g/dL3.5-5.7FMarion HospitalAlkaline phosphatase [Enzymatic activity/volume] in Serum or PlasmaOrdered By: Obayda Daromar on 66-08-1781ZSF [Catalytic activity/Vol]103 U/B38-750DryzmcjooBarney Children'S Medical CenterAspartate aminotransferase [Enzymatic activity/volume] in Serum or PlasmaOrdered By: Obaydah Daromar on 08-81-2297PQE [Catalytic activity/Vol]80 U/L67-60RjddfxrqhBarney Children'S Medical CenterBasophils Auto (Bld) [#/Vol]Ordered By: Obaydah Daromar on 02-63-8397Riricfzea (Bld) [#/Vol]0.0 10*3/uL0.0-0.2FMarion HospitalBasophils/100 WBC Auto (Bld)Ordered By: Obayda Daromar on 70-29-1082Qbxohuroc/100 WBC (Bld)0.2 %.[facility] Bilirubin.total [Mass/volume] in Serum or PlasmaOrdered By: Obaydah Daromar on 98-43-4898Zrqslxauc [Mass/Vol]0.4 mg/dL0.3-1.0[facility] Calcium [Mass/volume] in Serum or PlasmaOrdered By: Obayda Daromar on 91-34-9533Hkvqzna [Mass/Vol]9.1 mg/dL8.6-10.3FMarion Hospital Carbon dioxide, total [Moles/volume] in Serum or PlasmaOrdered By: Obsruthida Daromar on 63-57-5638HA8 [Moles/Vol]29.3 mmol/L21.0-31.0[facility] Medical CenterChloride [Moles/volume] in Serum or PlasmaOrdered By: Obayda Daromar on 09-43-0185Msxqbjar [Moles/Vol]96 mmol/F93-218CgwubonocBarney Children'S Medical CenterComplete Blood Count Auto Diffon 06-70-6191Kmcbrqjww (Bld) [#/Vol] 0.0 10*3/uLNormal0.0-0.2FMarion HospitalComment on above:Result Comment: PERFORMED BY: [facility] [place] [address] PATHOLOGIST DATA STEWARD EZRA MCCLAIN M.D.Performed By: #### GLULS #### Point of Care testing ,Basophils/100 WBC (Bld)0.2 %Normal.[facility]S Medical CenterComment on above:Performed By: #### GLULS #### Point of Care testing ,Eosinophils (Bld) [#/Vol]0.0 10*3/uLNormal0.0-0.45[facility] Medical CenterComment on above:Performed By: #### GLULS #### Point of Care testing ,Eosinophils/100 WBC (Bld)0.0 %Normal.[facility] Medical CenterComment on above:Performed By: #### GLULS #### Point of Care testing ,Erythrocyte distribution width (RBC) [Ratio]18.2 %High11.9-15.3FMarion HospitalComment on above:Performed By: #### GLULS #### Point of Care testing ,Hematocrit (Bld) [Volume fraction]38.3 %Jmiplp58.0-46.4FMarion HospitalComment on above:Performed By: #### GLULS #### Point of Care testing ,Hemoglobin (Bld) [Mass/Vol]12.7 g/gKKqezgb42.8-15.4FMarion HospitalComment on above:Performed By: #### GLULS #### Point of Care testing ,Lymphocytes (Bld) [#/Vol]0.5 10*3/uLLow1.00-4.8[facility]S Medical CenterComment on above:Performed By: #### GLULS #### Point of Care testing ,Lymphocytes/100 WBC (Bld)6.4 %Normal.[facility]S Medical CenterComment on above:Performed By: #### GLULS #### Point of Care testing ,MCH (RBC) [Entitic mass]31.7 yvGfhgpx79.7-34.3FMarion Hospital Comment on above:Performed By: #### GLULS #### Point of Care testing ,MCV (RBC) [Entitic vol]95.9 qMQuxpqx27-026YjkibcrlxBarney Children'S Medical Center Comment on above:Performed By: #### GLULS #### Point of Care testing ,Mean Corpuscular HGB Conc33.1 g/tKExyrli92.0-35.0[facility] Medical CenterComment on above:Performed By: #### GLULS #### Point of Care testing ,Monocytes (Bld) [#/Vol]0.3 10*3/uLNormal0.0-0.8[facility] Medical CenterComment on above:Performed By: #### GLULS #### Point of Care testing ,Monocytes/100 WBC (Bld)3.8 %Normal.[facility] Medical CenterComment on above:Performed By: #### GLULS #### Point of Care testing ,Neutrophils (Bld) [#/Vol]6.8 10*3/uLNormal1.8-7.7FMarion HospitalComment on above:Performed By: #### GLULS #### Point of Care testing ,Neutrophils/100 WBC (Bld)89.6 %Normal.[facility] Medical CenterComment on above:Performed By: #### GLULS #### Point of Care testing ,NRBC%0.0 /100{WBC}Normal0-0.5FMarion HospitalComment on above: Performed By: #### GLULS #### Point of Care testing ,Platelet mean volume (Bld) [Entitic vol]7.5 fLNormal6.3-10.7FMarion HospitalComment on above:Performed By: #### GLULS #### Point of Care testing ,Platelets (Bld) [#/Vol]201 10*3/qTAxybpy168-196YktgmrkmeBarney Children'S Medical CenterComment on above:Performed By: #### GLULS #### Point of Care testing ,RBC (Bld) [#/Vol]4.00 10*6/uLNormal3.60-5.00[facility] Comment on above:Performed By: #### GLULS #### Point of Care testing ,WBC (Bld) [#/Vol]7.6 10*3/uLNormal3.8-11.6FMarion Hospital Comment on above:Performed By: #### GLULS #### Point of Care testing ,Comprehensive Metabolic Panelon 99-55-2418Ebczstf [Mass/Vol]4.6 g/dLNormal 3.5-5.7FMarion HospitalComment on above:Performed By: #### GLULS #### Point of Care testing ,Albumin/Globulin [Mass ratio]1.7 {ratio}NormalBarney Children'S Medical Center Comment on above:Performed By: #### GLULS #### Point of Care testing ,ALP [Catalytic activity/Vol]103 U/YQlvfqz62-420OakxmudonBarney Children'S Medical CenterComment on above:Performed By: #### GLULS #### Point of Care testing ,ALT [Catalytic activity/Vol]59 U/igh7-52[facility] Comment on above:Performed By: #### GLULS #### Point of Care testing ,Anion gap [Moles/Vol]Not performedNormal6.0-15.0[facility] Medical CenterComment on above:Performed By: #### GLULS #### Point of Care testing ,AST [Catalytic activity/Vol]80 U/YTlop96-42FkxrcfsziBarney Children'S Medical Center Comment on above:Performed By: #### GLULS #### Point of Care testing ,Bilirubin [Mass/Vol]0.4 mg/dLNormal0.3-1.0[facility] Comment on above:Performed By: #### GLULS #### Point of Care testing ,Calcium [Mass/Vol]9.1 mg/dLNormal8.6-10.3FMarion Hospital Comment on above:Performed By: #### GLULS #### Point of Care testing ,Chloride [Moles/Vol]96 mmol/KQaf09-301RxlzvlupkBarney Children'S Medical CenterComment on above:Performed By: #### GLULS #### Point of Care testing ,CO2 [Moles/Vol]29.3 mmol/VRdkdjj72.0-31.0[facility] Comment on above:Performed By: #### GLULS #### Point of Care testing ,Creatinine [Mass/Vol]0.85 mg/dLNormal0.60-1.20[facility] Comment on above:Performed By: #### GLULS #### Point of Care testing ,Creatinine Clr Calc Ywpbdkkb751.67NoOhioHealth [facility] Comment on above:Result Comment: PERFORMED BY: [facility] [address] [place] [address] PATHOLOGIST DATA STEWARD EZRA MCCLAIN M.D.Performed By: #### GLULS #### Point of Care testing ,GFR/1.73 sq M.predicted MDRD (S/P/Bld) [Vol rate/Area]mL/min/{1.73_m2}Normal [facility] Medical CenterComment on above:Performed By: #### GLULS #### Point of Care testing ,Globulin (S) [Mass/Vol]2.7 g/dLNoOhioHealth Arthur G.H. Bing, MD, Cancer CenterComment on above:Performed By: #### GLULS #### Point of Care testing ,Glucose [Mass/Vol]284 mg/xGGdia08-454QodwgblmmBarney Children'S Medical CenterComment on above:Result Comment: Random Glucose Reference Range is dependent on time and content of last meal. Glucose of more than 200 mg/dL in a nonstressed, ambulatory subject supports the diagnosis of Diabetes Mellitus. ADA recommended reference rangePerformed By: #### GLULS #### Point of Care testing ,PotassiumNormal3.5-5.1FMarion HospitalComment on above:Result Comment: Specimen hemolyzed, redraw requestedPerformed By: #### GLULS #### Point of Care testing ,Protein [Mass/Vol]7.3 g/dLChristian Hospitalal6.4-8.9[facility] Medical CenterComment on above:Performed By: #### GLULS #### Point of Care testing ,Sodium [Moles/Vol]134 mmol/BYdk333-881LoxdhqofsBarney Children'S Medical CenterComment on above:Performed By: #### GLULS #### Point of Care testing ,Urea nitrogen [Mass/Vol]37 mg/dLHigh7-25[facility] Comment on above:Performed By: #### GLULS #### Point of Care testing ,Creatinine [Mass/volume] in Serum or PlasmaOrdered By: Marilyn Sun on 06-49-8731Fmodflsnnn [Mass/Vol]0.85 mg/dL0.60-1.20[facility]S Medical CenterEosinophils Auto (Bld) [#/Vol]Ordered By: Obartur Mejiaomar on 09-13-2022 Eosinophils (Bld) [#/Vol]0.0 10*3/uL0.0-0.45[facility] Eosinophils/100 WBC Auto (Bld)Ordered By: Obartur Mejiaomar on 09-13-2022 Eosinophils/100 WBC (Bld)0.0 %.[facility]'S Medical CenterErythrocyte distribution width Auto (RBC) [Ratio]Ordered By: Marilyn Riosr on 09-13-2022 Erythrocyte distribution width (RBC) [Ratio]18.2 %11.9-15.3FMarion HospitalGlobulin Calc (S) [Mass/Vol]Ordered By: Marilyn Sun on 12-21-3436Wtngrcwt (S) [Mass/Vol]2.7 g/dLBarney Children'S Medical Center Glucose Poct Glucometerson 77-47-2672Iyadqgj0Kls9: Cleaned MeterNoOhioHealth Arthur G.H. Bing, MD, Cancer CenterComment on above:Result Comment: PERFORMED BY: [facility] [address] [place] [address] PATHOLOGIST DATA STEWARD EZRA MCCLAIN M.D.Performed By: #### GLULS #### Point of Care testing ,Glucose [Mass/Vol]375 mg/dLThe Christ HospitalComment on above:Result Comment: Random Glucose Reference Range is dependent on time and content of last meal. Glucose of more than 200 mg/dL in a nonstressed, ambulatory subject supports the diagnosis of Diabetes Mellitus.Performed By: #### GLULS #### Point of Care testing ,Glucose [Mass/Vol]360 mg/dLThe Christ HospitalComment on above:Result Comment: Random Glucose Reference Range is dependent on time and content of last meal. Glucose of more than 200 mg/dL in a nonstressed, ambulatory subject supports the diagnosis of Diabetes Mellitus. PERFORMED BY: [place] [address] PATHOLOGIST DATA STEWARD EZRA MCCLAIN M.D.Performed By: #### CMP, CBC #### [place] [address] USAGlucose [Mass/Vol]348 mg/dLThe Christ HospitalComment on above:Result Comment: Random Glucose Reference Range is dependent on time and content of last meal. Glucose of more than 200 mg/dL in a nonstressed, ambulatory subject supports the diagnosis of Diabetes Mellitus. PERFORMED BY: [place] [address] PATHOLOGIST DATA STEWARD EZRA MCCLAIN M.D.Performed By: #### GLULS #### Point of Care testing ,Pujzrtd1Coa5: Cleaned MeterNoOhioHealth Arthur G.H. Bing, MD, Cancer CenterComment on above:Result Comment: PERFORMED BY: [place] [address] PATHOLOGIST DATA STEWARD EZRA MCCLAIN M.D.Performed By: #### GLULS #### Point of Care testing ,Glucose [Mass/Vol]261 mg/dLThe Christ HospitalComment on above:Result Comment: Random Glucose Reference Range is dependent on time and content of last meal. Glucose of more than 200 mg/dL in a nonstressed, ambulatory subject supports the diagnosis of Diabetes Mellitus.Performed By: #### GLULS #### Point of Care testing ,Glucose [Mass/volume] in Serum or PlasmaOrdered By: Marilyn Sun on 91-45-5416Nescqgl [Mass/Vol]284 mg/hW00-944Sdizgdwbf[address] [place] [address] Comment on above:ADA recommended reference rangeRandom Glucose Reference Range is dependent on time and content of last meal. Glucose of more than 200 mg/dL in a nonstressed, ambulatory subject supports the diagnosisof Diabetes Mellitus. Hematocrit Auto (Bld) [Volume fraction]Ordered By: Marilyn Mejiaomar on 09-13-2022 Hematocrit (Bld) [Volume fraction]38.3 %34.0-46.4FMarion HospitalHemoglobin [Mass/volume] in BloodOrdered By: Obsruthidacuca Mejiaomar on 09-13-2022 Hemoglobin (Bld) [Mass/Vol]12.7 g/dL11.8-15.4FMarion Hospital Laboratory - Chemistry and Chemistry - challengeOrdered By: Marilyn Mejiaomar on 46-85-9273HII/1.73 sq M.predicted MDRD (S/P/Bld) [Vol rate/Area]mL/min/{1.73_m2} [facility]S Medical CenterLeukocytes [#/volume] corrected for nucleated erythrocytes in Blood by Automated counOrdered By: Marilyn Mejiaomar on 09-13-2022 WBC corrected for nucl RBC Auto (Bld) [#/Vol]7.6 10*3/uL3.8-11.6FMarion HospitalLymphocytes Auto (Bld) [#/Vol]Ordered By: Obartur Mejiaomar on 74-23-3027Ubsrtxniuko (Bld) [#/Vol]0.5 10*3/uL1.00-4.8[facility]S Medical CenterLymphocytes/100 WBC Auto (Bld)Ordered By: Obsruthidacuca Mejiaomar on 20-77-4347Oiuyclzfrzj/100 WBC (Bld)6.4 %.[facility]S Medical CenterMCH Auto (RBC) [Entitic mass]Ordered By: Obsruthidacuca Mejiaomar on 78-10-7838DXR (RBC) [Entitic mass]31.7 pg24.7-34.3FMarion HospitalMCHC Auto (RBC) [Mass/Vol]Ordered By: Obsruthidacuca Mejiaomar on 36-47-1386ULEF (RBC) [Mass/Vol]33.1 g/dL32.0-35.0[facility] Medical CenterMCV Auto (RBC) [Entitic vol] Ordered By: Obsruthidah Daromar on 94-84-2635QLU (RBC) [Entitic vol]95.9 nH26-671 [facility] Medical CenterMonocytes Auto (Bld) [#/Vol]Ordered By: Obsruthidacuca Mejiaomar on 55-65-1991Gtaauaspv (Bld) [#/Vol]0.3 10*3/uL0.0-0.8[facility] Medical CenterMonocytes/100 WBC Auto (Bld)Ordered By: Obsruthidah Robertoomar on 44-36-7937Rvvchdvbp/100 WBC (Bld)3.8 %.[facility] Neutrophils Auto (Bld) [#/Vol]Ordered By: Obsruthidacuca Mejiaomar on 09-13-2022 Neutrophils (Bld) [#/Vol]6.8 10*3/uL1.8-7.7FMarion Hospital Neutrophils/100 WBC Auto (Bld)Ordered By: Obsruthidacuca Mejiaomar on 09-13-2022 Neutrophils/100 WBC (Bld)89.6 %.[facility] Medical CenterNo Panel InformationOrdered By: José Sanchez on 26-69-8226Ecmjgkh Glucose CommentGlu2: cleaned meterBarney Children'S Medical CenterNo Panel InformationOrdered By: Marilyn Mejiaomar on 26-74-2634Dfutzipb Creatinine Clearance (Xnbt574.67[facility]'S Medical CenterNucleated erythrocytes [Presence] in Blood by Automated countOrdered By: Marilyn Mejiaomar on 86-14-7254Vgrvnidue RBC Auto Ql (Bld)0.0 /100{WBC}0-0.5FMarion HospitalPlatelet mean volume Auto (Bld) [Entitic vol]Ordered By: Obsruthidacuca Mejiaomar on 24-65-3128Ktpqewuw mean volume (Bld) [Entitic vol]7.5 fL6.3-10.7FMarion HospitalPlatelets Auto (Bld) [#/Vol]Ordered By: Obsruthidacuca Mejiaomar on 80-29-4248Ajtvqwmho (Bld) [#/Vol]201 10*3/uR597-991WkxetnwdmBarney Children'S Medical CenterPotassium [Moles/volume] in Serum or PlasmaOrdered By: Obsruthideborah Daromar on 19-27-6403Retudidto [Moles/Vol]4.5 mmol/L3.5-5.1FMarion HospitalProtein [Mass/volume] in Serum or PlasmaOrdered By: Obsruthidah Daromar on 69-70-4499Plciafw [Mass/Vol]7.3 g/dL6.4-8.9 [facility]S Medical CenterRBC Auto (Bld) [#/Vol]Ordered By: Obaydah Daromar on 34-68-8914XPK (Bld) [#/Vol]4.00 10*6/uL3.60-5.00[facility]S Medical CenterRedraw Potassiumon 67-23-6378Mxwfjbxau [Moles/Vol]4.5 mmol/LNormal 3.5-5.1FMarion HospitalComment on above:Order Comment: FIRST SPECMEN HEMOLYZEDResult Comment: PERFORMED BY: [facility] [address] [place] [address] PATHOLOGIST DATA STEWARD EZRA MCCLAIN M.D.Performed By: #### GLULS #### Point of Care testing ,Serum or plasma albumin/globulin mass ratioOrdered By: Marliyn Mejiaomar on 24-94-6111Aeerjks/Globulin [Mass ratio]1.7 {ratio}[facility] Hospitalerum or plasma anion gap determinationOrdered By: Marilyn Mejiaomar on 15-61-1689Tgkhv gap [Moles/Vol]TNPBarney Children'S Medical CenterComment on above:Test not performedSodium [Moles/volume] in Serum or PlasmaOrdered By: Obsruthidacuca Daromar on 17-80-5035Fdkfnp [Moles/Vol]134 mmol/S577-865AijbnlgvjBarney Children'S Medical CenterUrea nitrogen [Mass/volume] in Serum or PlasmaOrdered By: Obaydah Daromar on 62-00-5681Ayqe nitrogen [Mass/Vol]37 mg/dL7-25Bar[facility] Children'S Medical CenterWBC Auto (Bld) [#/Vol]Ordered By: Obsruthidacuca Daromar on 97-13-5625GLU (Bld) [#/Vol]7.6 10*3/uL3.8-11.6FMarion Hospital Complete Blood Count Auto Diffon 10-62-0258Jocmgbqeo (Bld) [#/Vol]0.0 10*3/uL Normal0.0-0.2FMarion HospitalComment on above:Result Comment: PERFORMED BY: [place] [address] PATHOLOGIST DATA STEWARD EZRA MCCLAIN M.D.Performed By: #### HS TROP #### [facility] [address] [place] [address] USABasophils/100 WBC (Bld)0.2 %Normal.[facility] Children'S Medical CenterComment on above:Performed By: #### HS TROP #### [facility] [address] [place] [address] USAEosinophils (Bld) [#/Vol]0.0 10*3/uLNormal0.0-0.45 [facility]S Medical CenterComment on above:Performed By: #### HS TROP #### [place] [address] USAEosinophils/100 WBC (Bld)0.0 %Normal.[facility] Children'S Medical CenterComment on above:Performed By: #### HS TROP #### [facility] [address] [place] [address] USAErythrocyte distribution width (RBC) [Ratio]17.5 %High 11.9-15.3FMarion HospitalComment on above:Performed By: #### HS TROP #### [facility] [address] [place] [address] USAHematocrit (Bld) [Volume fraction]36.3 %Cjqyjb79.0-46.4 [facility]S Medical CenterComment on above:Performed By: #### HS TROP #### [place] [id number] USAHemoglobin (Bld) [Mass/Vol]12.0 g/xZXyqagp83.8-15.4 [facility]S Medical CenterComment on above:Performed By: #### HS TROP #### [facility] [address] [place] [address] USALymphocytes (Bld) [#/Vol]0.3 10*3/uLLow1.00-4.8[facility]'S Medical CenterComment on above:Performed By: #### HS TROP #### [facility] [address] [place] [address] USALymphocytes/100 WBC (Bld)4.1 %Normal.[facility]'S Medical CenterComment on above:Performed By: #### HS TROP #### [place] [address] USAMCH (RBC) [Entitic mass]31.7 ycAzhjcq97.7-34.3FMarion HospitalComment on above:Performed By: #### HS TROP #### [place] [address] USAMCV (RBC) [Entitic vol]95.9 tIZdhukg61-958OcffccltgBarney Children'S Medical CenterComment on above:Performed By: #### HS TROP #### [place] [address] USAMean Corpuscular HGB Conc33.1 g/mECledqu64.0-35.0[facility]S Medical CenterComment on above:Performed By: #### HS TROP #### [place] [address] USAMonocytes (Bld) [#/Vol]0.3 10*3/uLNormal0.0-0.8[facility]S Medical CenterComment on above:Performed By: #### HS TROP #### [place] [id number] USAMonocytes/100 WBC (Bld)3.8 %Normal.[facility]'S Medical CenterComment on above:Performed By: #### HS TROP #### [place] [address] USANeutrophils (Bld) [#/Vol]6.3 10*3/uLNormal1.8-7.7Fire[facility] Regional Medical CenterComment on above:Performed By: #### HS TROP #### [facility] [address] [place] [address] USANeutrophils/100 WBC (Bld)91.9 %Normal.[facility]'S Medical CenterComment on above:Performed By: #### HS TROP #### [facility] [address] [place] [address] USANRBC%0.0 /100{WBC}Normal0-0.5FMarion HospitalComment on above:Performed By: #### HS TROP #### [place] [address] USAPlatelet mean volume (Bld) [Entitic vol]7.5 fLNormal 6.3-10.7FMarion HospitalComment on above:Performed By: #### HS TROP #### [place] [address] USAPlatelets (Bld) [#/Vol]177 10*3/uMBhcjou294-207HsadocltxBarney Children'S Medical CenterComment on above:Performed By: #### HS TROP #### [place] [address] USARBC (Bld) [#/Vol]3.79 10*6/uLNormal3.60-5.00[facility]S Medical CenterComment on above:Performed By: #### HS TROP #### [place] [address] USAWBC (Bld) [#/Vol]6.8 10*3/uLNormal3.8-11.6FMarion HospitalComment on above:Performed By: #### HS TROP #### [place] [address] USAComprehensive Metabolic Panelon 08-33-7694Nwhvdfg [Mass/Vol]4.1 g/dLNormal3.5-5.7FMarion HospitalComment on above:Performed By: #### HS TROP #### [place] [address] USAAlbumin/Globulin [Mass ratio]1.6 {ratio}NormalBarney Children'S Medical CenterComment on above:Performed By: #### HS TROP #### [facility] [address] [place] [address] USAALP [Catalytic activity/Vol]101 U/CNnjawj14-562GogfrvxfjBarney Children'S Medical CenterComment on above:Performed By: #### HS TROP #### [facility] [address] [place] [address] USAALT [Catalytic activity/Vol]45 U/LNormal7-52[facility]S Medical CenterComment on above:Performed By: #### HS TROP #### [facility] [address] [place] [address] USAAnion gap [Moles/Vol]12.8 mmol/LNormal6.0-15.0[facility]S Medical CenterComment on above:Performed By: #### HS TROP #### [facility] [address] [place] [address] USAAST [Catalytic activity/Vol]55 U/NWamo10-00GtiavotsoBarney Children'S Medical CenterComment on above:Performed By: #### HS TROP #### [facility] [address] [place] [address] USABilirubin [Mass/Vol]0.4 mg/dLNormal0.3-1.0[facility]S Medical CenterComment on above:Performed By: #### HS TROP #### [facility] [address] [place] [address] USACalcium [Mass/Vol]8.8 mg/dLNormal8.6-10.3FMarion HospitalComment on above:Performed By: #### HS TROP #### [facility] [address] [place] [address] USAChloride [Moles/Vol]96 mmol/UYlg64-162WcqyzumxcBarney Children'S Medical CenterComment on above:Performed By: #### HS TROP #### [facility] [address] [place] [address] USACO2 [Moles/Vol]28.8 mmol/VMpdgqb31.0-31.0[facility]S Medical CenterComment on above:Performed By: #### HS TROP #### [facility] [address] [place] [address] USACreatinine [Mass/Vol]0.90 mg/dLNormal0.60-1.20[facility]S Medical CenterComment on above:Performed By: #### HS TROP #### [facility] [address] [place] [address] USACreatinine Clr Calc Pmsbnjcz732.98NoOhioHealth Arthur G.H. Bing, MD, Cancer CenterComment on above:Result Comment: PERFORMED BY: [facility] [address] [place] [address] PATHOLOGIST DATA STEWARD EZRA MCCLAIN M.D.Performed By: #### HS TROP #### [place] [address] USAGFR/1.73 sq M.predicted MDRD (S/P/Bld) [Vol rate/Area] mL/min/{1.73_m2}The Christ HospitalComment on above: Performed By: #### HS TROP #### [facility] [address] [place] [address] USAGlobulin (S) [Mass/Vol]2.5 g/dLNoOhioHealth Arthur G.H. Bing, MD, Cancer CenterComment on above:Performed By: #### HS TROP #### [place] [address] USAGlucose [Mass/Vol]289 mg/sJCdop65-428XewjqdwcnBarney Children'S Medical CenterComment on above:Result Comment: Random Glucose Reference Range is dependent on time and content of last meal. Glucose of more than 200 mg/dL in a nonstressed, ambulatory subject supports the diagnosis of Diabetes Mellitus. ADA recommended reference rangePerformed By: #### HS TROP #### [facility] [address] [place] [address] USAPotassium [Moles/Vol]4.6 mmol/LNormal3.5-5.1FMarion HospitalComment on above:Performed By: #### HS TROP #### [facility] [address] [place] [address] USAProtein [Mass/Vol]6.6 g/dLNormal6.4-8.9[facility]S Medical CenterComment on above:Performed By: #### HS TROP #### [facility] [address] [place] [address] USASodium [Moles/Vol]133 mmol/QIzh002-311CsltnjnvtBarney Children'S Medical CenterComment on above:Performed By: #### HS TROP #### [facility] [address] [place] [address] USAUrea nitrogen [Mass/Vol]29 mg/dLHigh7-25Bar[facility]'S Medical CenterComment on above:Performed By: #### HS TROP #### [place] [address] USAGlucose Poct Glucometerson 79-49-2573Izmonwn7Sse0: Cleaned MeterThe Christ HospitalComment on above:Result Comment: PERFORMED BY: [place] [address] PATHOLOGIST DATA STEWARD EZRA MCCLAIN M.D.Performed By: #### CMP, CBC #### [place] [address] USAGlucose [Mass/Vol]203 mg/dLThe Christ HospitalComment on above:Result Comment: Random Glucose Reference Range is dependent on time and content of last meal. Glucose of more than 200 mg/dL in a nonstressed, ambulatory subject supports the diagnosis of Diabetes Mellitus.Performed By: #### CMP, CBC #### [place] [address] CWPWvcfjtb5Ial8: Cleaned MeterThe Christ HospitalComment on above:Result Comment: PERFORMED BY: [place] [address] PATHOLOGIST DATA STEWARD EZRA MCCLAIN M.D.Performed By: #### GLULS #### Point of Care testing ,Glucose [Mass/Vol]331 mg/dLThe Christ HospitalComment on above:Result Comment: Random Glucose Reference Range is dependent on time and content of last meal. Glucose of more than 200 mg/dL in a nonstressed, ambulatory subject supports the diagnosis of Diabetes Mellitus.Performed By: #### GLULS #### Point of Care testing ,Ryvhjmp4Xqt1: Cleaned [facility] Akron GeneralComment on above:Result Comment: PERFORMED BY: [place] [address] PATHOLOGIST DATA STEWARD EZRA MCCLAIN M.D.Performed By: #### CMP, CBC #### [place] [address] USAGlucose [Mass/Vol]282 mg/dLThe Christ HospitalComment on above:Result Comment: Random Glucose Reference Range is dependent on time and content of last meal. Glucose of more than 200 mg/dL in a nonstressed, ambulatory subject supports the diagnosis of Diabetes Mellitus.Performed By: #### CMP, CBC #### [place] [address] LFRKiigmnr4Nmd7: Cleaned [facility] Ak[facility] GeneralComment on above:Result Comment: PERFORMED BY: [place] [address] PATHOLOGIST DATA STEWARD EZRA MCCLAIN M.D.Performed By: #### CMP, CBC #### [place] [address] USAGlucose [Mass/Vol]219 mg/dLThe Christ HospitalComment on above:Result Comment: Random Glucose Reference Range is dependent on time and content of last meal. Glucose of more than 200 mg/dL in a nonstressed, ambulatory subject supports the diagnosis of Diabetes Mellitus.Performed By: #### CMP, CBC #### [place] [address] USAComplete Blood Count Auto Diffon 02-47-6160Dqahvhazj (Bld) [#/Vol]0.1 10*3/uLNormal0.0-0.2FMarion HospitalComment on above:Result Comment: PERFORMED BY: [place] [phone] PATHOLOGIST DATA STEWARD EZRA MCCLAIN M.D.Performed By: #### CMP, CBC #### [place] [address] USABasophils/100 WBC (Bld)1.1 %Normal.[facility]'S Medical CenterComment on above:Performed By: #### CMP, CBC #### [place] [address] USAEosinophils (Bld) [#/Vol]0.0 10*3/uLNormal0.0-0.45 [facility] Medical CenterComment on above:Performed By: #### CMP, CBC #### [place] [address] USAEosinophils/100 WBC (Bld)0.0 %Normal.[facility]'S Medical CenterComment on above:Performed By: #### CMP, CBC #### [place] [address] USAErythrocyte distribution width (RBC) [Ratio]17.5 %High 11.9-15.3FMarion HospitalComment on above:Performed By: #### CMP, CBC #### [place] [address] USAHematocrit (Bld) [Volume fraction]38.9 %Bgwvfn03.0-46.4 [facility] Medical CenterComment on above:Performed By: #### CMP, CBC #### [place] [address] USAHemoglobin (Bld) [Mass/Vol]12.7 g/hIZgyqgd61.8-15.4 [facility] Medical CenterComment on above:Performed By: #### CMP, CBC #### [place] [address] USALymphocytes (Bld) [#/Vol]0.3 10*3/uLLow1.00-4.8[facility]S Medical CenterComment on above:Performed By: #### CMP, CBC #### [address] [place] [address] USALymphocytes/100 WBC (Bld)4.7 %Normal.[facility]S Medical CenterComment on above:Performed By: #### CMP, CBC #### [facility] [address] [place] [address] USAH (RBC) [Entitic mass]31.7 stMuhqhf59.7-34.3FMarion HospitalComment on above:Performed By: #### CMP, CBC #### [facility] [address] [place] [address] USAV (RBC) [Entitic vol]96.7 cRSrrufm16-152XbtyqwqpdBarney Children'S Medical CenterComment on above:Performed By: #### CMP, CBC #### [place] [address] USAMean Corpuscular HGB Conc32.8 g/lNMzqhno43.0-35.0[facility]S Medical CenterComment on above:Performed By: #### CMP, CBC #### [place] [address] USAMonocytes (Bld) [#/Vol]0.1 10*3/uLNormal0.0-0.8[facility]S Medical CenterComment on above:Performed By: #### CMP, CBC #### [place] [address] USAMonocytes/100 WBC (Bld)0.9 %Normal.[facility]'S Medical CenterComment on above:Performed By: #### CMP, CBC #### [place] [address] USANeutrophils (Bld) [#/Vol]6.0 10*3/uLNormal1.8-7.7FMarion HospitalComment on above:Performed By: #### CMP, CBC #### [place] [address] USANeutrophils/100 WBC (Bld)93.3 %Normal.[facility]S Medical CenterComment on above:Performed By: #### CMP, CBC #### [facility] [address] [place] [address] USANRBC%0.2 /100{WBC}Normal0-0.5FMarion HospitalComment on above:Performed By: #### CMP, CBC #### [facility] [address] [place] [address] USAPlatelet mean volume (Bld) [Entitic vol]7.5 fLNormal 6.3-10.7FMarion HospitalComment on above:Performed By: #### CMP, CBC #### [facility] [address] [place] [address] USAPlatelets (Bld) [#/Vol]185 10*3/bECzqzmn715-832IjwcyvtnyBarney Children'S Medical CenterComment on above:Performed By: #### CMP, CBC #### [place] [address] USARBC (Bld) [#/Vol]4.02 10*6/uLNormal3.60-5.00[facility]S Medical CenterComment on above:Performed By: #### CMP, CBC #### [facility] [address] [place] [address] USAWBC (Bld) [#/Vol]6.4 10*3/uLNormal3.8-11.6FMarion HospitalComment on above:Performed By: #### CMP, CBC #### [place] [address] USAComprehensive Metabolic Panelon 01-26-0342Jyzcmia [Mass/Vol]4.5 g/dLNormal3.5-5.7FMarion HospitalComment on above:Performed By: #### CMP, CBC #### [facility] [address] [place] [address] USAAlbumin/Globulin [Mass ratio]1.5 {ratio}NormalBarney Children'S Medical CenterComment on above:Performed By: #### CMP, CBC #### [place] [address] USAALP [Catalytic activity/Vol]130 U/VExeh30-631PukochbqmBarney Children'S Medical CenterComment on above:Performed By: #### CMP, CBC #### [facility] [address] [place] [address] USAALT [Catalytic activity/Vol]59 U/LHigh7-52[facility]S Medical CenterComment on above:Performed By: #### CMP, CBC #### [facility] [address] [place] [address] USAAnion gap [Moles/Vol]Not performedNormal6.0-15.0[facility]S Medical CenterComment on above:Performed By: #### CMP, CBC #### [facility] [address] [place] [address] USAAST [Catalytic activity/Vol]90 U/HWvsx40-88JgbwbthakBarney Children'S Medical CenterComment on above:Performed By: #### CMP, CBC #### [facility] [address] [place] [address] USABilirubin [Mass/Vol]0.5 mg/dLNormal0.3-1.0[facility]S Medical CenterComment on above:Performed By: #### CMP, CBC #### [facility] [address] [place] [address] USACalcium [Mass/Vol]9.3 mg/dLNormal8.6-10.3FMarion HospitalComment on above:Performed By: #### CMP, CBC #### [facility] [address] [place] [address] USAChloride [Moles/Vol]94 mmol/NYrw56-843JonphivndBarney Children'S Medical CenterComment on above:Performed By: #### CMP, CBC #### [facility] [address] [place] [address] USACO2 [Moles/Vol]28.7 mmol/HWyahkk04.0-31.0[facility]S Medical CenterComment on above:Performed By: #### CMP, CBC #### [facility] [address] [place] [address] USACreatinine [Mass/Vol]0.87 mg/dLNormal0.60-1.20[facility]S Medical CenterComment on above:Performed By: #### CMP, CBC #### [facility] [address] [place] [address] USACreatinine Clr Calc Hoqodhah073.46NoOhioHealth Arthur G.H. Bing, MD, Cancer CenterComment on above:Result Comment: PERFORMED BY: [facility] [address] [place] [address] PATHOLOGIST DATA STEWARD EZRA MCCLAIN M.D.Performed By: #### CMP, CBC #### [facility] [address] [place] [address] USAGFR/1.73 sq M.predicted MDRD (S/P/Bld) [Vol rate/Area] mL/min/{1.73_m2}NormalBarney Children'S Medical CenterComment on above: Performed By: #### CMP, CBC #### [facility] [address] [place] [address] USAGlobulin (S) [Mass/Vol]3.0 g/dLNoOhioHealth Arthur G.H. Bing, MD, Cancer CenterComment on above:Performed By: #### CMP, CBC #### [facility] [address] [place] [address] USAGlucose [Mass/Vol]222 mg/dLSignificant change vf08-107 [facility]S Medical CenterComment on above:Result Comment: Random Glucose Reference Range is dependent on time and content of last meal. Glucose of more than 200 mg/dL in a nonstressed, ambulatory subject supports the diagnosis of Diabetes Mellitus. ADA recommended reference rangePerformed By: #### CMP, CBC #### [facility] [address] [place] [address] USAPotassiumNormal3.5-5.1FMarion Hospital Comment on above:Result Comment: Specimen hemolyzed, redraw requestedPerformed By: #### CMP, CBC #### [facility] [address] [place] [address] USAProtein [Mass/Vol]7.5 g/dLNormal6.4-8.9[facility]S Medical CenterComment on above:Performed By: #### CMP, CBC #### [facility] [address] [place] [address] USASodium [Moles/Vol]135 mmol/MAla632-213MrcjtgxrgBarney Children'S Medical CenterComment on above:Performed By: #### CMP, CBC #### [facility] [address] [place] [address] USAUrea nitrogen [Mass/Vol]28 mg/dLHigh7-25Bar[facility]'S Medical CenterComment on above:Performed By: #### CMP, CBC #### [facility] [address] [place] [id number] USAECH echo transthoracicon 18-39-8289WCY echo transthoracic [facility] [address] [place] [address] Echocardiogram Signed Patient: Carmen Bledsoe MR#: [id number] 9 : 1960 Acct:[id number] Age/Sex: 61 / F ADM Date: 09/10/22 Loc: Room: [address] [place] [address] Type: ADM IN Attending Dr: Marilyn Sun [...] 0727 Signed By: Maikol Siddiqui MD 09/11/22 1155NoOhioHealth Arthur G.H. Bing, MD, Cancer CenterGlucose Poct Glucometerson 15-28-9428Bbfwfha4Ley4: Cleaned MeterNormal [facility]S Medical CenterComment on above:Result Comment: PERFORMED BY: [place] [address] PATHOLOGIST DATA STEWARD EZRA MCCLAIN M.D.Performed By: #### CMP, CBC #### [place] [address] USAGlucose [Mass/Vol]236 mg/dLThe Christ HospitalComment on above:Result Comment: Random Glucose Reference Range is dependent on time and content of last meal. Glucose of more than 200 mg/dL in a nonstressed, ambulatory subject supports the diagnosis of Diabetes Mellitus.Performed By: #### CMP, CBC #### [facility] [address] [place] [address] USAGlucose [Mass/Vol]289 mg/dLThe Christ HospitalComment on above:Result Comment: Random Glucose Reference Range is dependent on time and content of last meal. Glucose of more than 200 mg/dL in a nonstressed, ambulatory subject supports the diagnosis of Diabetes Mellitus. PERFORMED BY: [place] [address] PATHOLOGIST DATA STEWARD EZRA MCCLAIN M.D.Performed By: #### HS TROP #### [facility] [address] [place] [address] USAGlucose [Mass/Vol]297 mg/dLThe Christ HospitalComment on above:Result Comment: Random Glucose Reference Range is dependent on time and content of last meal. Glucose of more than 200 mg/dL in a nonstressed, ambulatory subject supports the diagnosis of Diabetes Mellitus. PERFORMED BY: [place] [address] PATHOLOGIST DATA STEWARD EZRA MCCLAIN M.D.Performed By: #### CMP, CBC #### [facility] [address] [place] [address] USAGlucose [Mass/Vol]226 mg/dLNoOhioHealth Arthur G.H. Bing, MD, Cancer CenterComment on above:Result Comment: Random Glucose Reference Range is dependent on time and content of last meal. Glucose of more than 200 mg/dL in a nonstressed, ambulatory subject supports the diagnosis of Diabetes Mellitus. PERFORMED BY: [place] [address] PATHOLOGIST DATA STEWARD EZRA MCCLAIN M.D.Performed By: #### GLULS #### Point of Care testing ,Redraw Potassiumon 15-57-0011Xsingrabe [Moles/Vol]4.5 mmol/LNormal3.5-5.1 [facility]S Medical CenterComment on above:Result Comment: PERFORMED BY: [place] [address] PATHOLOGIST DATA STEWARD EZRA MCCLAIN M.D.Performed By: #### HS TROP #### [facility] [address] [place] [address] USATroponin I High Sensitivityon 83-27-9079Pjxcetgq I High Sensitivity5.3 pg/mLNormal0.0-15.0[facility]S Medical CenterComment on above:Result Comment: PERFORMED BY: [place] [address] PATHOLOGIST DATA STEWARD EZRA MCCLAIN M.D.Performed By: #### CMP, CBC #### [facility] [address] [place] [address] USAA1C with Estimated Average Gluon 17-25-0981Czbmhex [Mass/Vol]128 mg/dLNoOhioHealth Arthur G.H. Bing, MD, Cancer CenterComment on above:Order Comment: Comment add onResult Comment: PERFORMED BY: [place] [address] PATHOLOGIST DATA STEWARD EZRA MCCLAIN M.D.Performed By: #### CMP, CBC #### [facility] [address] [place] [address] VBNXaT3o (Bld) [Mass fraction]6.1 %High4.3-5.6FMarion HospitalComment on above:Order Comment: Comment add onResult Comment: Increased risk for diabetes: 5.7 - 6.4 diabetes: >6.4 glycemic control for adults with diabetes: <7.0Performed By: #### CMP, CBC #### [facility] [address] [place] [address] USAActivated partial thromboplastin time (aPTT) in platelet poor plasma by coagulation aOrdered By: Joo Ramos on 21-94-8714nJUO Coag (PPP) [Time]31.2 s25.1-36.5FMarion HospitalAlanine aminotransferase [Enzymatic activity/volume] in Serum or PlasmaOrdered By: Joo Ramos on 14-82-3488IZK [Catalytic activity/Vol]50 U/L7-52[facility]'S Medical CenterAlbumin [Mass/volume] in Serum or Plasma by Bromocresol green (BCG) dye binding methoOrdered By: Joo Ramos on 23-34-8136Yxckkdo BCG dye [Mass/Vol]4.4 g/dL3.5-5.7FMarion HospitalAlkaline phosphatase [Enzymatic activity/volume] in Serum or PlasmaOrdered By: Joo Ramos on 65-35-9198OPD [Catalytic activity/Vol]121 U/X34-871OyhakkhibBarney Children'S Medical CenterAspartate aminotransferase [Enzymatic activity/volume] in Serum or PlasmaOrdered By: Joo Ramos on 93-82-1680ITF [Catalytic activity/Vol]71 U/C88-49GjvfsgcqpBarney Children'S Medical CenterB-Type Natriuretic Peptideon 76-23-6281Angdrbewfar peptide B (Bld) [Mass/Vol]6.0 pg/mLNormal5-100[facility]S Medical CenterComment on above: Result Comment: PERFORMED BY: [facility] [address] [place] [address] PATHOLOGIST DATA STEWARD EZRA MCCLAIN M.D.Performed By: #### CMP, CBC #### [facility] [address] [place] [address] USABasic Metabolic Panelon 74-56-3113Cjudk gap [Moles/Vol] 13.7 mmol/LNormal6.0-15.0[facility]'S Medical CenterComment on above: Performed By: #### CMP, CBC #### [facility] [address] [place] [address] USACalcium [Mass/Vol]9.6 mg/dLNormal8.6-10.3FMarion HospitalComment on above:Performed By: #### CMP, CBC #### [place] [address] USAChloride [Moles/Vol]99 mmol/WApceiq80-297MsoraevykBarney Children'S Medical CenterComment on above:Performed By: #### CMP, CBC #### [place] [address] USACO2 [Moles/Vol]29.0 mmol/LBkejxr86.0-31.0Bar[facility]'S Medical CenterComment on above:Performed By: #### CMP, CBC #### [place] [address] USACreatinine [Mass/Vol]0.83 mg/dLNormal0.60-1.20[facility]S Medical CenterComment on above:Performed By: #### CMP, CBC #### [place] [address] USACreatinine Clr Calc Qipypnoi944.50NormalBarney Children'S Medical CenterComment on above:Result Comment: PERFORMED BY: [place] [address] PATHOLOGIST DATA STEWARD EZRA MCCLAIN M.D.Performed By: #### CMP, CBC #### [place] [address] USAGFR/1.73 sq M.predicted MDRD (S/P/Bld) [Vol rate/Area] mL/min/{1.73_m2}NormalBarney Children'S Medical CenterComment on above: Performed By: #### CMP, CBC #### [facility] [address] [place] [address] USAGlucose [Mass/Vol]91 mg/nNBkotlf67-835RoxubdrltBarney Children'S Medical CenterComment on above:Result Comment: Random Glucose Reference Range is dependent on time and content of last meal. Glucose of more than 200 mg/dL in a nonstressed, ambulatory subject supports the diagnosis of Diabetes Mellitus. ADA recommended reference rangePerformed By: #### CMP, CBC #### [facility] [address] [place] [address] USAPotassium [Moles/Vol]4.7 mmol/LNormal3.5-5.1FMarion HospitalComment on above:Performed By: #### CMP, CBC #### [facility] [address] [place] [address] USASodium [Moles/Vol]137 mmol/FCtahtb744-056GekaxbpajBarney Children'S Medical CenterComment on above:Performed By: #### CMP, CBC #### [facility] [address] [place] [address] USAUrea nitrogen [Mass/Vol]24 mg/dLNormal7-25Bar[facility] Children'S Medical CenterComment on above:Performed By: #### CMP, CBC #### [facility] [address] [place] [address] USABasophils Auto (Bld) [#/Vol]Ordered By: Joo Ramos on 68-01-2516Xvvavvnvr (Bld) [#/Vol]0.1 10*3/uL0.0-0.2FMarion HospitalBasophils/100 WBC Auto (Bld)Ordered By: Joo Ramos on 09-10-2022 Basophils/100 WBC (Bld)1.1 %.Bar[facility] Children'S Medical CenterBilirubin Test strip Ql (U)Ordered By: Joo Ramos on 56-72-5349Gnepnncck Ql (U)Negative NegativeBarney Children'S Medical CenterBilirubin.direct [Mass/volume] in Serum or PlasmaOrdered By: Joo Ramos on 59-07-6833Lcckojdff.direct [Mass/Vol]0.10 mg/dL0.03-0.18FMarion HospitalBilirubin.total [Mass/volume] in Serum or PlasmaOrdered By: Joo Ramos on 31-03-7510Qgskaooou [Mass/Vol]0.4 mg/dL0.3-1.0[facility]S Medical CenterBioFire Not Detectedon 09-10-2022 BioFire Not DetectedNot detectedNormalNot DetectVeterans Health AdministrationComment on above:Result Comment: This is a duplicate RP2.1 COVID (PCR) result to be used for statistical tracking purpose only. PERFORMED BY: [place] [address] PATHOLOGIST DATA STEWARD EZRA MCCLAIN M.D.Performed By: #### CMP, CBC #### [place] [address] USACOVID-19 Detected/Not DetectedOrdered By: Marilyn Sun on 07-81-5281BEMZ-CoV-2 (COVID-19) RNA TERESO+non-probe Ql (Nph)Not detectedNot DetectVeterans Health AdministrationComment on above:This is a duplicate RP2.1 COVID (PCR) result to be used for statistical tracking purpose only. Calcium [Mass/volume] in Serum or PlasmaOrdered By: Joo Ramos on 09-10-2022 Calcium [Mass/Vol]9.6 mg/dL8.6-10.3FMarion HospitalCarbon dioxide, total [Moles/volume] in Serum or PlasmaOrdered By: oJo Ramos on 94-44-3542PR6 [Moles/Vol]29.0 mmol/L21.0-31.0[facility] Chloride [Moles/volume] in Serum or PlasmaOrdered By: Joo Ramos on 09-10-2022 Chloride [Moles/Vol]99 mmol/M68-413CsvqxpoyiBarney Children'S Medical CenterCholesterol [Mass/volume] in Serum or PlasmaOrdered By: Marilyn Sun on 09-10-2022 Cholesterol [Mass/Vol]169 mg/jZ803-843DkasubcdhBarney Children'S Medical CenterComment on above:Chol less than 200 mg/dl low riskChol 201-239 mg/dl borderline riskChol 240 mg/dl and greater high riskCholesterol in LDL Calc [Mass/Vol]Ordered By: Marilyn Sun on 39-61-4462Tkwnxvhmqzh in LDL [Mass/Vol]62 mg/dL0-100[facility]S Medical CenterComment on above:LDL ATP III CLASSIFICATIONLDL less than 100 mg/dL OptimalLDL 100-129 mg/dL Near or above axxbyhaIZU166-772 mg/dL Borderline highLDL 160-189 mg/dL HighLDL greater than 189 mg/dL Very high Cholesterol in VLDL Calc [Mass/Vol]Ordered By: Marilyn Sun on 09-10-2022 Cholesterol in VLDL [Mass/Vol]34 mg/dLBarney Children'S Medical CenterColor Auto (U)Ordered By: Joo Ramos on 60-98-7415Canna (U)YellowYellowBarney Children'S Medical CenterComplete Blood Count Auto Diffon 33-27-6781Wxjxkwzsc (Bld) [#/Vol]0.1 10*3/uLNormal0.0-0.2FMarion HospitalComment on above:Result Comment: PERFORMED BY: [place] [address] PATHOLOGIST DATA STEWARD EZRA MCCLAIN M.D.Performed By: #### CMP, CBC #### [facility] [address] [place] [address] USABasophils/100 WBC (Bld)1.1 %Normal.[facility]'S Medical CenterComment on above:Performed By: #### CMP, CBC #### [facility] [address] [place] [address] USAEosinophils (Bld) [#/Vol]0.1 10*3/uLNormal0.0-0.45 [facility]S Medical CenterComment on above:Performed By: #### CMP, CBC #### [facility] [address] [place] [address] USAEosinophils/100 WBC (Bld)1.6 %Normal.[facility]'S Medical CenterComment on above:Performed By: #### CMP, CBC #### [facility] [address] [place] [address] USAErythrocyte distribution width (RBC) [Ratio]17.5 %High 11.9-15.3FMarion HospitalComment on above:Performed By: #### CMP, CBC #### [place] [address] USAHematocrit (Bld) [Volume fraction]37.7 %Bfxeuc16.0-46.4 [facility]S Medical CenterComment on above:Performed By: #### CMP, CBC #### [place] [address] USAHemoglobin (Bld) [Mass/Vol]12.5 g/bHIpvuat37.8-15.4 [facility] Medical CenterComment on above:Performed By: #### CMP, CBC #### [place] [address] USALymphocytes (Bld) [#/Vol]1.1 10*3/uLNormal1.00-4.8 [facility] Medical CenterComment on above:Performed By: #### CMP, CBC #### [place] [address] USALymphocytes/100 WBC (Bld)21.5 %Normal.[facility]S Medical CenterComment on above:Performed By: #### CMP, CBC #### [place] [address] USAMCH (RBC) [Entitic mass]31.8 rqPczpco73.7-34.3FMarion HospitalComment on above:Performed By: #### CMP, CBC #### [place] [address] USAMCV (RBC) [Entitic vol]96.1 kZKnjmnb24-500VqtqiucmlBarney Children'S Medical CenterComment on above:Performed By: #### CMP, CBC #### [place] [address] USAMean Corpuscular HGB Conc33.1 g/rFZzvmuf31.0-35.0[facility]S Medical CenterComment on above:Performed By: #### CMP, CBC #### [facility] [address] [place] [address] USAMonocytes (Bld) [#/Vol]0.3 10*3/uLNormal0.0-0.8[facility] Medical CenterComment on above:Performed By: #### CMP, CBC #### [place] [address] USAMonocytes/100 WBC (Bld)18.14 %Normal0.00-20.00[facility]S Medical CenterComment on above:Performed By: #### CMP, CBC #### [place] [address] USAMonocytes/100 WBC (Bld)5.1 %Normal.[facility]S Medical CenterComment on above:Performed By: #### CMP, CBC #### [place] [address] USANeutrophils (Bld) [#/Vol]3.7 10*3/uLNormal1.8-7.7FMarion HospitalComment on above:Performed By: #### CMP, CBC #### [place] [address] USANeutrophils/100 WBC (Bld)70.7 %Normal.[facility]S Medical CenterComment on above:Performed By: #### CMP, CBC #### [place] [address] USANRBC%0.3 /100{WBC}Normal0-0.5FMarion HospitalComment on above:Performed By: #### CMP, CBC #### [facility] [address] [place] [address] USAPlatelet mean volume (Bld) [Entitic vol]7.2 fLNormal 6.3-10.7FMarion HospitalComment on above:Performed By: #### CMP, CBC #### [place] [address] USAPlatelets (Bld) [#/Vol]180 10*3/hRMkmeav562-922NksowoplsBarney Children'S Medical CenterComment on above:Performed By: #### CMP, CBC #### [facility] [address] [place] [address] USARBC (Bld) [#/Vol]3.92 10*6/uLNormal3.60-5.00[facility]S Medical CenterComment on above:Performed By: #### CMP, CBC #### [facility] [address] [place] [address] USAWBC (Bld) [#/Vol]5.2 10*3/uLNormal3.8-11.6FMarion HospitalComment on above:Performed By: #### CMP, CBC #### [facility] [address] [place], [place] [address] USACreatine Kinaseon 57-78-5791BN [Catalytic activity/Vol]39 U/SJnlhfl19-117HiwduvgpmBarney Children'S Medical CenterComment on above:Performed By: #### CMP, CBC #### [facility] [address] [place], [place] [address] USACreatine kinase [Enzymatic activity/volume] in Serum or PlasmaOrdered By: Joo Ramos on 14-76-4833SA [Catalytic activity/Vol]39 U/L 30-[facility]S Medical CenterCreatinine [Mass/volume] in Serum or PlasmaOrdered By: Joo Ramos on 34-41-4464Kibccqnrwg [Mass/Vol]0.83 mg/dL 0.60-1.20[facility]S Medical CenterECG 12 lead ECGon 79-19-9433CTH 12 lead ECGPROMEDICA [facility] [address] [place], [place] [address] Electrocardiograph Report Signed Patient: Carmen Bledsoe MR#: [id number] 9 : 1960 Acct:[id number] Age/Sex: 61 / F ADM Date: 09/10/22 Loc: Room: [address] [place] [address] Type: ADM IN Attending Dr: Marilyn Sun [...] Signed By Maikol Siddiqui MD 0 09/11/22 0653The [facility] HospitalEC 12 lead [facility] [place] [address] Electrocardiograph Report Signed Patient: Carmen Bledsoe MR#: [id number] 9 : 1960 Acct:[id number] Age/Sex: 61 / F ADM Date: 09/10/22 Loc: Room: [address] [place] [address] Type: ADM IN Attending Dr: Marilyn Sun [...] ECGs available Confirmed by Joo Ramos DO ([id number]) on 09/10/2022 6:56:24 PM Referred By: Electronically Signed By:Joo Ramos DO Transcribed By: MUS Signed By Joo Ramos DO 09/10/2 3 1856NormSelect Medical Cleveland Clinic Rehabilitation Hospital, AvonEosinophils Auto (Bld) [#/Vol] Ordered By: Joo Ramos on 19-88-5045Jljksxizxtw (Bld) [#/Vol]0.1 10*3/uL 0.0-0.45[facility]S Medical CenterEosinophils/100 WBC Auto (Bld)Ordered By: Joo Ramos on 71-41-1999Zdqnuzdjhek/100 WBC (Bld)1.6 %.[facility]S Medical CenterErythrocyte distribution width Auto (RBC) [Ratio]Ordered By: Joo Ramos on 23-92-1399Wqhifwnvhfy distribution width (RBC) [Ratio]17.5 %11.9-15.3 [facility]S Medical CenterGlobulin Calc (S) [Mass/Vol]Ordered By: Joo Ramos on 70-59-8439Dlgsjnsi (S) [Mass/Vol]2.7 g/dLBarney Children'S Medical CenterGlucose Poct Glucometerson 76-73-4809Ceyadwi [Mass/Vol]188 mg/dLNoal [facility] Medical CenterComment on above:Result Comment: Random Glucose Reference Range is dependent on time and content of last meal. Glucose of more than 200 mg/dL in a nonstressed, ambulatory subject supports the diagnosis of Diabetes Mellitus. PERFORMED BY: [place] [id number] PATHOLOGIST DATA STEWARD EZRA MCCLAIN M.D.Performed By: #### GLULS #### Point of Care testing ,Glucose [Mass/Vol]118 mg/dLNoOhioHealth Arthur G.H. Bing, MD, Cancer CenterComment on above:Result Comment: Random Glucose Reference Range is dependent on time and content of last meal. Glucose of more than 200 mg/dL in a nonstressed, ambulatory subject supports the diagnosis of Diabetes Mellitus. PERFORMED BY: [place] [id number] PATHOLOGIST DATA STEWARD EZRA MCCLAIN M.D.Performed By: #### GLULS #### Point of Care testing ,Glucose [Mass/volume] in Serum or PlasmaOrdered By: Joo Ramos on 09-10-2022 Glucose [Mass/Vol]91 mg/sR86-180FyxegnkckBarney Children'S Medical CenterComment on above:ADA recommended reference rangeRandom Glucose Reference Range is dependent on time and content of last meal. Glucose of more than 200 mg/dL in a nonstressed, ambulatory subject supports the diagnosisof Diabetes Mellitus. Glucose mean value [Mass/volume] in Blood Estimated from glycated hemoglobin Ordered By: Marilyn Sun on 78-59-9259Urnbthg glucose Estimated from glycated hemoglobin (Bld) [Mass/Vol]128 mg/dLBarney Children'S Medical CenterHematocrit Auto (Bld) [Volume fraction]Ordered By: Joo Ramos on 07-27-9728Mvzefocizc (Bld) [Volume fraction]37.7 %34.0-46.4FMarion Hospital Hemoglobin A1c percentageOrdered By: Marilyn Sun on 35-54-4103JyD2v (Bld) [Mass fraction]6.1 %4.3-5.6FMarion HospitalComment on above: Increased risk for diabetes: 5.7 - 6.4diabetes: >6.4glycemic control for adults with diabetes: <7.0Hemoglobin [Mass/volume] in BloodOrdered By: Joo Ramos on 01-28-9618Uopcamgwmi (Bld) [Mass/Vol]12.5 g/dL11.8-15.4FMarion HospitalHepatic Panelon 70-26-8280Kearmkj [Mass/Vol]4.4 g/dLNormal3.5-5.7 [facility] Medical CenterComment on above:Performed By: #### CMP, CBC #### [facility] [address] [place] [address] USAAlbumin/Globulin [Mass ratio]1.6 {ratio}NormalBarney Children'S Medical CenterComment on above:Performed By: #### CMP, CBC #### [facility] [address] [place] [address] USAALP [Catalytic activity/Vol]121 U/SSotk82-106VyuomhsegBarney Children'S Medical CenterComment on above:Performed By: #### CMP, CBC #### [facility] [address] [place] [address] USAALT [Catalytic activity/Vol]50 U/LNormal7-52[facility]S Medical CenterComment on above:Performed By: #### CMP, CBC #### [facility] [address] [place] [address] USAAST [Catalytic activity/Vol]71 U/UHyds99-78GieuyworcBarney Children'S Medical CenterComment on above:Performed By: #### CMP, CBC #### [facility] [address] [place] [address] USABilirubin [Mass/Vol]0.4 mg/dLNormal0.3-1.0[facility]S Medical CenterComment on above:Performed By: #### CMP, CBC #### [place] [address] USABilirubin,Indirect0.3 mg/dLNormalBarney Children'S Medical CenterComment on above:Performed By: #### CMP, CBC #### [place] [address] USABilirubin.indirect [Mass/Vol]0.10 mg/dLNormal0.03-0.18 [facility]S Medical CenterComment on above:Performed By: #### CMP, CBC #### [place] [address] USAGlobulin (S) [Mass/Vol]2.7 g/dLNormalBarney Children'S Medical CenterComment on above:Performed By: #### CMP, CBC #### [place] [address] USAProtein [Mass/Vol]7.1 g/dLNormal6.4-8.9[facility] Medical CenterComment on above:Performed By: #### CMP, CBC #### [place] [address] USAKetones Auto test strip (U) [Mass/Vol]Ordered By: Joo Ramos on 77-08-5996Pzeycxh (U) [Mass/Vol]NegativeNegativeBarney Children'S Medical CenterLaboratory - Chemistry and Chemistry - challengeOrdered By: Joo Ramos on 04-74-1640OOQ/1.73 sq M.predicted MDRD (S/P/Bld) [Vol rate/Area] mL/min/{1.73_m2}[facility] CenterLaboratory - CoagulationOrdered By: Joo Ramos on 78-10-7828LO Coag (PPP) [Time]11.8 s9.0-12.9[facility]S Medical CenterLeukocytes [#/volume] corrected for nucleated erythrocytes in Blood by Automated counOrdered By: Joo Ramos on 79-62-2517RFQ corrected for nucl RBC Auto (Bld) [#/Vol]5.2 10*3/uL3.8-11.6FMarion HospitalLipid Panelon 83-60-8172Kquobxshdvs [Mass/Vol]169 mg/dLNormal 140-200[facility]S Medical CenterComment on above:Order Comment: Comment add onResult Comment: Chol less than 200 mg/dl low risk Chol 201-239 mg/dl borderline risk Chol 240 mg/dl and greater high riskPerformed By: #### CMP, CBC #### [facility] [address] [place] [address] USACholesterol in HDL [Mass/Vol]73 mg/oPJlblzd94-28DeqxfmubiBarney Children'S Medical CenterComment on above:Order Comment: Comment add onResult Comment: HDL CHOL ATP-III CLASSIFICATION Cardiovascular Risk HDL > or equal to 60 mg/dL LOW HDL < 40 mg/dL HIGHPerformed By: #### CMP, CBC #### [facility] [address] [place] [address] USACholesterol.total/Cholesterol in HDL [Mass ratio]2.3 {ratio}Normal<5.0[facility]S Medical CenterComment on above:Order Comment: Comment add onResult Comment: PERFORMED BY: [facility] [address] [place] [address] PATHOLOGIST DATA STEWARD EZRA MCCLAIN M.D.Performed By: #### CMP, CBC #### [facility] [address] [place] [address] USALDL Cholesterol,Bcuadbgbcz40 mg/dLNormal0-100[facility]S Medical CenterComment on above:Order Comment: Comment add onResult Comment: LDL ATP III CLASSIFICATION LDL less than 100 mg/dL Optimal LDL 100-129 mg/dL Near or above optimal LDL 130-159 mg/dL Borderline high LDL 160-189 mg/dL High LDL greater than 189 mg/dL Very highPerformed By: #### CMP, CBC #### [facility] [address] [place] [address] USATriglyceride w/Cgxpdu991 mg/dLHigh0-149[facility]S Medical CenterComment on above:Order Comment: Comment add onResult Comment: TRIG ATP III CLASSIFICATION TRIG less than 150 mg/dL Normal TRIG 150-199 mg/dL Borderline high TRIG 200-500 mg/dL High TRIG greater than 500 mg/dL Very high Standard traceable to the Center for Disease Conrtrol and Prevention (CDC) test method.Performed By: #### CMP, CBC #### [facility] [address] [place] [address] USAVLDL OOZXZOCAFRK01 mg/dLNormalBarney Children'S Medical CenterComment on above:Order Comment: Comment add onPerformed By: #### CMP, CBC #### [facility] [address] [place] [address] USALymphocytes Auto (Bld) [#/Vol]Ordered By: Joo Ramos on 30-51-1931Jteycgzbhvt (Bld) [#/Vol]1.1 10*3/uL1.00-4.8[facility]S Medical CenterLymphocytes/100 WBC Auto (Bld)Ordered By: Joo Ramos on 09-10-2022 Lymphocytes/100 WBC (Bld)21.5 %.[facility] Auto (RBC) [Entitic mass]Ordered By: Joo Ramos on 16-96-5865HIY (RBC) [Entitic mass]31.8 pg24.7-34.3FAdena Pike Medical Center Auto (RBC) [Mass/Vol]Ordered By: Joo Ramos on 10-95-0634PXUT (RBC) [Mass/Vol]33.1 g/dL32.0-35.0[facility] CenterMCV Auto (RBC) [Entitic vol]Ordered By: Joo Ramos on 51-86-5613CEZ (RBC) [Entitic vol]96.1 aG60-921JnwcwniqaBarney Children'S Medical Center Monocyte distribution width [Entitic volume] in Blood by AutomatedOrdered By: Joo Ramos on 80-73-9259Xkvjybil distribution width Auto (Bld) [Entitic vol] 18.14 %0.00-20.00[facility] Medical CenterMonocytes Auto (Bld) [#/Vol] Ordered By: Joo Ramos on 42-54-0020Qrbmatbuk (Bld) [#/Vol]0.3 10*3/uL0.0-0.8 [facility] CenterMonocytes/100 WBC Auto (Bld)Ordered By: Joo Ramos on 90-07-5626Qottzpkzh/100 WBC (Bld)5.1 %.[facility]S Medical CenterNatriuretic peptide B [Mass/Vol]Ordered By: Joo Ramos on 09-10-2022 Natriuretic peptide B (Bld) [Mass/Vol]6.0 pg/mL5-100[facility]S Medical CenterNeutrophils Auto (Bld) [#/Vol]Ordered By: Joo Ramos on 09-10-2022 Neutrophils (Bld) [#/Vol]3.7 10*3/uL1.8-7.7FMarion Hospital Neutrophils/100 WBC Auto (Bld)Ordered By: Joo Ramos on 09-10-2022 Neutrophils/100 WBC (Bld)70.7 %.[facility]S Medical CenterNitrite Test strip Ql (U)Ordered By: Joo Ramos on 67-97-0403Nwhxklj Ql (U)NegativeNegative [facility] CenterNo Panel InformationOrdered By: Joo Ramos on 13-23-5642Gprnqcbo Creatinine Clearance (Wijz861.50[facility]S Medical CenterNucleated erythrocytes [Presence] in Blood by Automated countOrdered By: Joo Ramos on 86-49-3582Agqunmpus RBC Auto Ql (Bld)0.3 /100{WBC}0-0.5FMarion HospitalPartial Thromboplastin Timeon 44-19-0615xTDU Coag (Bld) [Time]31.2 iUtewkz79.1-36.5FMarion HospitalComment on above: Result Comment: PERFORMED BY: [place] [address] PATHOLOGIST DATA STEWARD EZRA MCCLAIN M.D.Performed By: #### CMP, CBC #### [place] [address] USAPlatelet mean volume Auto (Bld) [Entitic vol]Ordered By: Joo Ramos on 05-98-7334Cwiaxyno mean volume (Bld) [Entitic vol]7.2 fL6.3-10.7 [facility]S Medical CenterPlatelet poor plasma international normalized ratio (INR) by coagulation assay (relatOrdered By: Joo Ramos on 01-77-0149EXM Coag (PPP) [Relative time]1.0 {INR}[facility]S Medical CenterComment on above:INR Therapeutic Range A) Pre- and [...] Joo Ramos on 09-10-2022 Platelets (Bld) [#/Vol]180 10*3/sA333-877NzszdrulbBarney Children'S Medical Center Potassium [Moles/volume] in Serum or PlasmaOrdered By: Joo Ramos on 09-10-2022 Potassium [Moles/Vol]4.7 mmol/L3.5-5.1FMarion HospitalProtein Auto test strip (U) [Mass/Vol]Ordered By: Joo Ramos on 11-81-1678Mdalplc (U) [Mass/Vol]NegativeNegativeBarney Children'S Medical CenterProtein [Mass/volume] in Serum or PlasmaOrdered By: Joo Ramos on 02-19-8949Cuvkatx [Mass/Vol]7.1 g/dL6.4-8.9[facility] Medical CenterProthrombin Time INRon 79-56-4529LER Coag (PPP) [Relative time]1.0 {INR}[facility] Comment on above:Result Comment: INR Therapeutic [...] - 4.5Performed By: #### CMP, CBC #### [place] [address] USAPT Coag (PPP) [Time]11.8 sNormal9.0-12.9[facility]S Medical CenterComment on above:Performed By: #### CMP, CBC #### [place] [address] USARBC Auto (Bld) [#/Vol]Ordered By: Joo Ramos on 75-32-1474KVC (Bld) [#/Vol]3.92 10*6/uL3.60-5.00[facility] Medical CenterRespiratory (Upper) Panel, PCRon 86-71-5658Zqxtjybetmh (Upper) Panel, PCR Adenovirus Not detected Bordetella [...] COVID-19 Detected/Not Detected Not detected PERFORMED BY: [place] [address] PATHOLOGIST DATA STEWARD EZRA MCCLAIN M.D.[facility] HospitalComment on above: Performed By: #### CMP, CBC #### [address] [place] [address] [facility]ARE CENTERRespiratory pathogens DNA and RNA panel - Nasopharynx by TERESO with non-probe detectionOrdered By: Marilyn Sun on 01-52-2420Xeynllawarr pathogens DNA and RNA panel TERESO+non-probe (Nph)[facility] Hospitalerum or plasma albumin/globulin mass ratioOrdered By: Joo Ramos on 99-77-8652Gszcdtk/Globulin [Mass ratio]1.6 {ratio}[facility] Hospitalerum or plasma anion gap determinationOrdered By: Joo Ramos on 32-55-9499Beavh gap [Moles/Vol]13.7 mmol/L6.0-15.0[facility] Hospitalerum or plasma high density lipoprotein (HDL) cholesterol measurement Ordered By: Marilyn Sun on 21-31-5890Epihzwwolty in HDL [Mass/Vol]73 mg/dL 35-85[facility]S Medical CenterComment on above:HDL CHOL ATP-III CLASSIFICATION Cardiovascular RiskHDL > or equal to 60 mg/dL LOWHDL < 40 mg/dL HIGHSerum or plasma non-glucuronidated bilirubin measurement (mass/volume) Ordered By: Joo Ramos on 65-07-8029Qadabkegy.indirect [Mass/Vol]0.3 mg/dL [facility] Hospitalerum or plasma total cholesterol/high density lipoprotein (HDL) cholesterol mass ratOrdered By: Marilyn Sun on 09-10-2022 Cholesterol.total/Cholesterol in HDL [Mass ratio]2.3 {ratio}<5.0[facility] Hospitalodium [Moles/volume] in Serum or PlasmaOrdered By: Joo Ramos on 02-64-7046Vleqhx [Moles/Vol]137 mmol/F762-797TrohedsueKnox Community Hospitalpecific gravity Auto test strip (U) [Rel density]Ordered By: Joo Ramos on 19-67-7844Zxuyrvwg gravity (U) [Rel density]1.0051.001-1.030 [facility]S Medical CenterTriglyceride [Mass/volume] in Serum or Plasma Ordered By: Marilyn Sun on 83-68-8326Zjnrpbhpzezb [Mass/Vol]172 mg/dL0-149 [facility] CenterComment on above:TRIG ATP III CLASSIFICATIONTRIG less than 150 mg/dL NormalTRIG 150-199 mg/dL Borderline highTRIG 200-500 mg/dL High TRIG greater than 500 mg/dL Very highStandard traceable to the Center for Disease Conrtrol and Prevention (CDC) test method. Troponin I High Sensitivityon 90-11-7556Ggcswdsb I High Sensitivity6.3 pg/mL Normal0.0-15.0[facility] Medical CenterComment on above:Result Comment: PERFORMED BY: [place] [address] PATHOLOGIST DATA STEWARD EZRA MCCLAIN M.D.Performed By: #### HS TROP #### [facility] [address] [place] [address] USATroponin I High Sensitivity6.6 pg/mLNormal0.0-15.0 [facility] Medical CenterComment on above:Result Comment: PERFORMED BY: [place] [address] PATHOLOGIST DATA STEWARD EZRA MCCLAIN M.D.Performed By: #### HS TROP #### [facility] [address] [place] [address] USATroponin I High Sensitivity6.3 pg/mLNormal0.0-15.0 [facility] Medical CenterComment on above:Result Comment: PERFORMED BY: [place] [address] PATHOLOGIST DATA STEWARD EZRA MCCLAIN M.D.Performed By: #### CMP, CBC #### [facility] [address] [place], [place] [address] USATroponin I.cardiac [Mass/volume] in Serum or Plasma by Detection limit <= 0.01 ng/Ordered By: Marilyn Sun on 07-74-3324Amtvdahp I.cardiac DL <= 0.01 ng/mL [Mass/Vol]5.3 pg/mL0.0-15.0[facility]S Medical CenterTroponin I.cardiac [Mass/volume] in Serum or Plasma by Detection limit <= 0.01 ng/Ordered By: Joo Ramos on 95-28-4909Xrykgrfd I.cardiac DL <= 0.01 ng/mL [Mass/Vol]6.3 pg/mL0.0-15.0[facility] Medical CenterUrea nitrogen [Mass/volume] in Serum or PlasmaOrdered By: Joo Ramos on 14-34-6522Prfm nitrogen [Mass/Vol]24 mg/dL7-25[facility]S Medical CenterUrinalysison 25-31-7259Cvxtkcwgrv (U)ClearNormalClearBarney Children'S Medical CenterComment on above:Order Comment: Name Collection Type:: Clean-Voided MidstreamPerformed By: #### CMP, CBC #### [facility] [address] [place] [address] USABilirubin,UrineNegativeNormalNegativeBarney Children'S Medical CenterComment on above:Order Comment: Name Collection Type:: Clean- Voided MidstreamPerformed By: #### CMP, CBC #### [facility] [address] [place] [address] USAColor (U)YellowNormalYellowBarney Children'S Medical CenterComment on above:Order Comment: Name Collection Type:: Clean-Voided MidstreamPerformed By: #### CMP, CBC #### [facility] [address] [place], [place] [address] USAGlucose Ql (U)NormalNormalNormSelect Medical Cleveland Clinic Rehabilitation Hospital, AvonComment on above:Order Comment: Name Collection Type:: Clean-Voided MidstreamPerformed By: #### CMP, CBC #### [facility] [address] [place] [id number] USAKetones Ql (U)NegativeNormalNegativeBarney Children'S Medical CenterComment on above:Order Comment: Name Collection Type:: Clean- Voided MidstreamPerformed By: #### CMP, CBC #### [facility] [address] [place], [place] [address] USALeukocyte esterase Test strip Ql (U)NegativeNormalNegative [facility] Medical CenterComment on above:Order Comment: Name Collection Type:: Clean-Voided MidstreamPerformed By: #### CMP, CBC #### [place] [address] USANitrite,UrineNegativeNormalNegGlenbeigh HospitalComment on above:Order Comment: Name Collection Type:: Clean- Voided MidstreamPerformed By: #### CMP, CBC #### [place] [address] USAOccult Blood,UrineNegativeNormalNegGlenbeigh HospitalComment on above:Order Comment: Name Collection Type:: Clean- Voided MidstreamResult Comment: PERFORMED BY: [place] [address] PATHOLOGIST DATA STEWARD EZRA MCCLAIN M.D.Performed By: #### CMP, CBC #### [place] [address] USApH (U)5.5 [pH]Normal5.0-9.0[facility] Medical CenterComment on above:Order Comment: Name Collection Type:: Clean-Voided MidstreamPerformed By: #### CMP, CBC #### [place] [address] USAProtein,UrineNegativeNormalNegGlenbeigh HospitalComment on above:Order Comment: Name Collection Type:: Clean- Voided MidstreamPerformed By: #### CMP, CBC #### [place] [address] USASpecificy Memphis,Urine1.243Vgphoq5.001-1.030[facility]S Medical CenterComment on above:Order Comment: Name Collection Type:: Clean-Voided MidstreamPerformed By: #### CMP, CBC #### [place] [address] USAUrobilinogen,UrineNormalNormalNormSelect Medical [facility] Rehabilitation Hospital, AvonComment on above:Order Comment: Name Collection Type:: Clean- Voided MidstreamPerformed By: #### CMP, CBC #### [place] [address] USAUrine clarity by refractometry automatedOrdered By: Joo Ramos on 35-44-0694Dudiokj Refractometry automated (U)ClearClearFMarion HospitalUrine glucose measurement by automated test strip (mass/volume)Ordered By: Joo Ramos on 91-92-0897Afphjhj Auto test strip (U) [Mass/Vol]Normal mg/dLThe Christ HospitalUrine hemoglobin detection by automated test stripOrdered By: Joo Ramos on 51-47-0840Hpcmgwzjjh Auto test strip Ql (U)NegativeNegGlenbeigh HospitalUrine leukocyte esterase detection by automated test stripOrdered By: Joo Ramos on 45-69-8553Awaxgktsp esterase Auto test strip Ql (U)NegativeNegGlenbeigh HospitalUrobilinogen Auto test strip (U) [Mass/Vol]Ordered By: Joo Ramos on 57-09-8099Vazmegbsvhuu (U) [Mass/Vol]Normal mg/dLThe Christ HospitalWBC Auto (Bld) [#/Vol]Ordered By: Joo Ramos on 33-41-3606AQD (Bld) [#/Vol]5.2 10*3/uL3.8-11.6FMarion Hospital XR chest 2V*on 28-99-3829YX chest 2V*[facility] [place] [address] XRay Report Signed Patient: Carmen Bledsoe MR#: [id number] 9 : 1960 Acct:[id number] Age/Sex: 61 / F ADM Date: 09/10/22 [...] Vicente Jr., D.O.09/10/2022 11:55 AM Dictation Location: [facility]--12 Transcribed By: HASMUKH 09/10/22 115 Dictated By: Jacques Vicente Jr, DO 09/10/22 115 Signed By: 09/10/22 115NoOhioHealth Arthur G.H. Bing, MD, Cancer CenterpH Auto test strip (U) Ordered By: Joo Ramos on 10-14-1286jX (U)5.5 [pH]5.0-9.0Bar[facility]'S Medical CenterCHEMISTRYOrdered By: SYSTEM SYSTEM on 54-76-2123Hatfx gap [Moles/Vol]12 mmol/LNormal6 - 16 mEq/LFTMC RemisolCalcium [Mass/Vol]8.9 mg/dL Normal8.9 - 11.1 mg/dLFTMC RemisolChloride [Moles/Vol]96 mmol/FCrl930 - 111 mmol/LFTMC RemisolCO2 [Moles/Vol]29 mmol/QHwcwls10 - 31 mmol/LFTMC Remisol Creatinine [Mass/Vol]0.9 mg/dLNormal0.5 - 1.3 mg/dLFTMC RemisolGFR/1.73 sq M.predicted among blacks MDRD (S/P/Bld) [Vol rate/Area]mL/min/1.73 d2Hlndoy >=59mL/min/1.73 m2FT Chem SGFR/1.73 sq M.predicted among non-blacks MDRD (S/P/Bld) [Vol rate/Area]mL/min/1.73 v0Jvkfqs>=59mL/min/1.73 m2[facility] Chem S Glucose [Mass/Vol]102 mg/gTVwpcac79 - 199 mg/dLFTMC RemisolPotassium [Moles/Vol] 4.3 mmol/LNormal3.5 - 5.3 mmol/LFTMC RemisolSodium [Moles/Vol]133 mmol/BXxd269 - 145 mmol/LFTMC RemisolUrea nitrogen [Mass/Vol]17 mg/dLNormal5 - 21 mg/dLFTMC RemisolUrea nitrogen/Creatinine [Mass ratio]19 mg/yeRvnjxo90 - 20FTMC Remisol CHEMISTRYOrdered By: SYSTEM SYSTEM on 59-10-9446Lzqofhb [Mass/Vol]4.1 g/dLNormal 3.3 - 5.0 gm/dLFTMC RemisolAlbumin/Globulin [Mass ratio]1.2 {ratio}Normal1.1 - 2.2FTMC RemisolALP [Catalytic activity/Vol]110 [iU]/dHigh21 - 98 Int._Unit/LFTMC RemisolALT No additional P-5'-P [Catalytic activity/Vol]55 [iU]/dHigh6 - 46 Int._Unit/LFTMC RemisolAnion gap [Moles/Vol]17 mmol/LHigh6 - 16 mEq/LFTMC RemisolAST [Catalytic activity/Vol]89 [iU]/dHigh5 - 43 Int._Unit/LFTMC Remisol Bilirubin [Mass/Vol]0.7 mg/dLNormal0.0 - 1.1 mg/dLFTMC RemisolCalcium [Mass/Vol] 8.7 mg/dLLow8.9 - 11.1 mg/dLFT RemisolChloride [Moles/Vol]89 mmol/NKtn683 - 111 mmol/LFTMC RemisolCholesterol [Mass/Vol]139 mg/wYUyvbfg367 - 200 mg/dLFTMC RemisolCholesterol in HDL [Mass/Vol]61 mg/dLInvalid Interpretation CodeFTMC RemisolCholesterol in LDL [Mass/Vol]61 mg/dLNormal<=129mg/dLFTMC Remisol Cholesterol in VLDL [Mass/Vol]28 mg/dLNormal7 - 40 mg/dLFT RemisolCO2 [Moles/Vol]29 mmol/OQxetej19 - 31 mmol/LFTMC RemisolCreatinine [Mass/Vol]0.7 mg/dLNormal0.5 - 1.3 mg/dLFTMC RemisolGFR/1.73 sq M.predicted among blacks MDRD (S/P/Bld) [Vol rate/Area]mL/min/1.73 p5Jchoaq>=59mL/min/1.73 m2FT Chem S GFR/1.73 sq M.predicted among non-blacks MDRD (S/P/Bld) [Vol rate/Area] mL/min/1.73 l3Hnfcvf>=59mL/min/1.73 m2FTMC Chem SGlobulin (S) [Mass/Vol]3.5 g/dL Normal1.4 - 4.0 gm/dLFTMC RemisolGlucose [Mass/Vol]80 mg/lKSweosq67 - 199 mg/dL FT[facility] RemisolPotassium [Moles/Vol]3.3 mmol/LLow3.5 - 5.3 mmol/LFTMC Remisol Protein [Mass/Vol]7.6 g/dLNormal6.0 - 7.8 gm/dLFTMC RemisolSodium [Moles/Vol]132 mmol/XBfn947 - 145 mmol/LFTMC RemisolTriglyceride [Mass/Vol]139 mg/dLNormal <=149mg/dLFTMC RemisolTSH Qn4.64 m[IU]/LNormal0.34 - 5.60 mcIU/mLFTMC Remisol Urea nitrogen [Mass/Vol]16 mg/dLNormal5 - 21 mg/dLFTMC RemisolUrea nitrogen/Creatinine [Mass ratio]23 mg/ciWpio16 - 20FTMC RemisolCHEMISTRYOrdered By: Hilario Leos on 91-50-6335Uxxdmre DL <= 20 mg/L (U) [Mass/Vol]4.6 microgram/mLNormal0.0 - 19.0 mcg/mLFTMC RemisolCHEMISTRYOrdered By: Alfredo Pisano on 48-88-7800YgA0r (Bld) [Mass fraction]6.3 %High<=5.9%FT[facility] ChemAutoSSHEMATOLOGYOrdered By: Arlene Andrade on 06-42-8102Kkncjsmtqlm distribution width (RBC) [Ratio]16.6 %High10.9 - 14.2 %[facility] HemeAutoSSHematocrit (Bld) [Volume fraction]42.3 %Ntazeo43.0 - 46.0 %[facility] HemeAutoSSHemoglobin (Bld) [Mass/Vol]13.7 g/xRKjurkp50.0 - 16.0 gm/dLFTMC HemeAutoSSMCH (RBC) [Entitic mass]30.6 kxHbjoll38.0 - 34.0 pgFMCBRIDE ORTHOPEDIC [facility] [place] HemeAutoSSMCHC (RBC) [Mass/Vol]32.4 g/dL Csdoas75.4 - 36.0 gm/dLNORTHEAST[facility] HemeAutoSSMCV (RBC) [Entitic vol]94.5 rGLgymgn30.0 - 100.0 fLNORTHEASTERN HEALTH SYSTEM – [facility] HemeAutoSSPlatelet mean volume (Bld) [Entitic vol]7.7 fLNormal6.4 - 10.8 fLNORTHEASTERN HEALTH SYSTEM – [facility] HemeAutoSSPlatelets (Bld) [#/Vol]203.0 E9/FKyfkru328.0 - 500.0 E9/L [facility] HemeAutoSSRBC (Bld) [#/Vol]4.5 E12/LNormal4.3 - 5.9 E12/LFTMC HemeAutoSSWBC corrected for nucl RBC Auto (Bld) [#/Vol]7.1 E9/LNormal4.0 - 11.0 E9/LFTMC HemeAutoSSXR CHEST (2 VW)on 87-73-5514Dsnjrnts chest. PN RIS CONSOLIDATEDEXAM: XR CHEST (2 VW) HISTORY: R06.02 shortness of breath, obstructive sleep apnea. COMPARISON: Chest 09/06/2019 TECHNIQUE: 2 views chest FINDINGS: Heart size normal. Lungs clear. Bony thorax and upper abdomen normal. [facility] Casa Ulloa Jr., MD - 05/21/2021 EXAM: XR CHEST (2 VW) HISTORY: R06.02 shortness of breath, obstructive sleep apnea. COMPARISON: Chest 09/06/2019 TECHNIQUE: 2 views chest FINDINGS: Heart size normal. Lungs clear. Bony thorax and upper abdomen normal. IMPRESSION: Negative chest. [employer] (TMG) Phone: radiology Study observation (narrative)[employer] (TMG) Phone: XR CHEST (2 VW)Ordered By: Casa Minor on 05-21-2021 [employer] (TMG) Phone: [phone]-08ot 65-42-9442ETNZ-CoV-2, RapidNot DetectedNot [facility] [place] [facility], NDComment on above: Rapid NAAT: The specimen is [...] management decisions. Fact sheet for Healthcare Providers: https://www.fda.gov/media/537979/download Fact sheet for Patients: https://www.fda.gov/media/428233/download Methodology: Isothermal Nucleic Acid Amplification Source.[place], KYOtheron 06-76-6529OROG-CoV-2MTurrell, KYUS PELVIS COMPLETEon . 8 cm intrauterine fibroid. 2. Likely vascular polyp in the cervix.[facility], NDEXAM: US PELVIS COMPLETE HISTORY: N85.2. Enlarged uterus [...] Left ovary: 2.8 x 2.0 x 1.3 cm.[facility], Pauly Jimenez Incoming Radiant Results From [facility]/Carma - 02/19/2020 4:19 PM EDT EXAM: US [...] 2. Likely vascular polyp in the cervix. [facility], NDBUN & creatinineon 70-84-5681Aslfsfnphc [Mass/Vol]0.81 mg/dL 0.5 - 0.9 mg/dLTuscarawas Hospital, NDGFR >60>60 mL/minTuscarawas Hospital, KYGFR Non->60>60 mL/minTuscarawas Hospital, NDGFR/1.73 sq M predicted among non-blacks MDRD (S/P/Bld) [Vol rate/Area][place], KYComment on above:Average GFR for 50-59 years old: 93 mL/min/1.73sq m Chronic Kidney Disease: <60 mL/min/1.73sq m Kidney failure: <15 mL/min/1.73sq m eGFR calculated using average adult body mass. Additional eGFR calculator available at: http://www.Patsnap/multiple_crcl_2012.htm GFR/1.73 sq M predicted among non-blacks MDRD (S/P/Bld) [Vol rate/Area]NOT REPORTEDTuscarawas Hospital, NDUrea nitrogen [Mass/Vol]15 mg/dL6 - 20 mg/dLTuscarawas Hospital, NDCT ABDOMEN PELVIS W IV CONTRAST Additional Contrast? Oralon 86-49-2799Yx acute process in the abdomen or pelvis. Enlarged, fatty liver. Prominent, bulky uterus, a nonspecific finding that may be related to underlying fibroids or adenomyosis.[place], KYEXAMINATION: CT ABDOMEN PELVIS W IV CONTRAST [...] air. Chronic degenerative changes in the thoracolumbar spine.[facility]as HospitalTony Mhpn Incoming Radiant Results From [facility] - 02/07/2020 3:09 PM EDT EXAMINATION: CT [...] be related to underlying fibroids or adenomyosis. [facility] Auto Differentialon 83-61-6218Fzujggeng (Bld) [#/Vol] 0.00 10*3/uLMercy Health- [place], KYBasophils/100 WBC (Bld)0 %0 - 2 %[facility], NDDifferential TypeYESMCleveland Clinic Union Hospital, KYEosinophils (Bld) [#/Vol]0.10 10*3/[facility], KYEosinophils/100 WBC (Bld)1 %0 - 5 %[facility], NDErythrocyte distribution width (RBC) [Ratio]15.7 %High12.1 - 15.2 %[facility], KYHematocrit (Bld) [Volume fraction]37.6 %36 - 46 %[facility], MERCYHemoglobin (Bld) [Mass/Vol]12.4 g/dL12 - 16 g/dLTuscarawas Hospital, [place] Interpretation and review of laboratory resultsAbnormalTuscarawas Hospital, [place] Lymphocytes (Bld) [#/Vol]1.40 10*3/[facility], MERCYLymphocytes/100 WBC (Bld)20 %15 - 40 %[facility], NDMCH (RBC) [Entitic mass]29.0 pg26 - 34 pg [facility], NDMCHC (RBC) [Mass/Vol]33.0 g/dL31 - 37 g/dLTuscarawas Hospital, KYMCV (RBC) [Entitic vol]87.9 fL80 - 100 fLTuscarawas Hospital, KYMonocytes (Bld) [#/Vol]0.40 10*3/[facility], KYMonocytes/100 WBC (Bld)6 %4 - 8 %[facility], MERCYPlatelet mean volume (Bld) [Entitic vol]NOT REPORTED6 - 12 fLTuscarawas Hospital, KYPlatelets (Bld) [#/Vol]NOT REPORTEDTuscarawas Hospital, KYPlatelets (Bld) [#/Vol]268 10*3/[facility], KYRBC (Bld) [#/Vol]4.28 10*6/uL4 - 5.2 m/[facility] [place], KYRBC morphology finding Nom (Bld)NOT REPORTEDTuscarawas Hospital, KYSegmented neutrophils/100 WBC (Bld)73 %47 - 75 %[facility]- [place], KYSegs Absolute5.10[facility]- [place], KYWBC (Bld) [#/Vol]7.1 10*3/uLMer Health- [place], KYWBC (Bld) [#/Vol]NOT REPORTEDper 100 WBCHarrison Community [facility]- [place], KYWBC MorphologyNOT REPORTEDMer Health- [place], KYComprehensive Metabolic Panelon 11-96-1210Roobpqm [Mass/Vol]4.5 g/dL3.5 - 5.2 g/dLH[facility]- [place], [place] Albumin/Globulin [Mass ratio]NOT REPORTEDH[facility]- [place], KYALP [Catalytic activity/Vol]92 U/L35 - 104 U/LMthe metrohealth systemy [facility]- [place], KYALT [Catalytic activity/Vol] 28 U/L5 - 33 U/LMercy Health- [place], KYAnion gap [Moles/Vol]13 mmol/L9 - 17 mmol/L [facility]- [place], KYAST [Catalytic activity/Vol]19 U/L<32[facility]- [place], [place] Bilirubin Ql (U)0.40 mg/dL0.3 - 1.2 mg/dLHarrison [facility]- [place], KYBun/Cre Txtgn38Tacb [facility]- [place], KYCalcium [Mass/Vol]10.2 mg/dL8.6 - 10.4 mg/dLH[facility]- [place], KYChloride [Moles/Vol]99 mmol/L98 - 107 mmol/LMthe metrohealth systemy [facility]- [place], KYCO2 [Moles/Vol]28 mmol/L20 - 31 mmol/LMercy Health- [place], KYCreatinine [Mass/Vol]0.86 mg/dL0.5 - 0.9 mg/dLH[facility]- [place], KYGFR >60>60 mL/minMercy Health- [place], KYGFR Non->60>60 mL/minMercy Health- [place], KYGFR/1.73 sq M predicted among non-blacks MDRD (S/P/Bld) [Vol rate/Area]NOT REPORTEDHarrison Community Hospital [facility]- [place], KYGFR/1.73 sq M predicted among non-blacks MDRD (S/P/Bld) [Vol rate/Area][place], KYComment on above:Average GFR for 50-59 years old: 93 mL/min/1.73sq m Chronic Kidney Disease: <60 mL/min/1.73sq m Kidney failure: <15 mL/min/1.73sq m eGFR calculated using average adult body mass. Additional eGFR calculator available at: http://www.Patsnap/multiple_crcl_2012.htm Glucose [Mass/Vol]121 mg/mPMndh96 - 99 mg/dLTuscarawas Hospital, NDPotassium [Moles/Vol]4.6 mmol/L3.7 - 5.3 mmol/LMCleveland Clinic Union Hospital, KYProtein [Mass/Vol]7.7 g/dL6.4 - 8.3 g/dLTuscarawas Hospital, KYSodium [Moles/Vol]140 mmol/L135 - 144 mmol/[facility], KYUrea nitrogen [Mass/Vol]22 mg/dLHigh6 - 20 mg/dLTuscarawas Hospital, NDHemoglobin A1Con 01-09-1271Bmrotfy [Mass/Vol]128 mg/dLTuscarawas Hospital, NDComment on above:The ADA and AACC recommend providing the estimated average glucose result to permit better patient understanding of their HBA1c result. HbA1c (Bld) [Mass fraction]6.1 %High4.8 - 5.9 %[place], [place] Interpretation and review of laboratory resultsAbnormalMechanicsville, KYLipid Panelon 08-09-2819Khauohmganf [Mass/Vol]166 mg/dL<200[place], KYComment on above: Cholesterol Guidelines: <200 Desirable 200-240 Borderline >240 Undesirable Cholesterol in HDL [Mass/Vol]39 mg/dLLow>40[place], KYComment on above: HDL Guidelines: <40 Undesirable 40-59 Borderline >59 Desirable Cholesterol in LDL [Mass/Vol]71 mg/dL0 - 130 mg/dLMechanicsville, KYComment on above: LDL Guidelines: <100 Desirable 100-129 Near to/above Desirable 130-159 Borderline >159 Undesirable Direct (measured) LDL and calculated LDL are not interchangeable tests. Cholesterol in VLDL [Mass/Vol]NOT REPORTEDHigh1 - 30 mg/dLKettering Health Hamilton MERCY Cholesterol.total/Cholesterol in HDL [Mass ratio]4.3 {ratio}<5T[facility]awas HospitalMERCYTriglyceride [Mass/Vol]280 mg/dLHigh<150T[facility]carawas HospitalMERCYComment on above: Triglyceride Guidelines: <150 Desirable 150-199 Borderline 200-499 High >499 Very high Based on AHA Guidelines for fasting triglyceride, April 2012. Magnesiumon 19-83-4918Nqfqqjink [Mass/Vol]1.9 mg/dL1.6 - 2.6 mg/dLTuscarawas HospitalMERCYOtheron 38-41-0493Fnrjrryrchpsuc and review of laboratory resultsAbnormal [facility] HospitalMERCYImmature granulocytes (Bld) [#/Vol]NOT REPORTED0 %[facility] HospitalMERCYPatient Fasting?on 71-01-9825Jkrtyit Fasting?yesTuscarawas HospitalMERCYTSH with Reflexon 94-51-3415NNX Qn2.01 m[IU]/LMercHCA Florida Largo HospitalMERCYVitamin D 25 Hydroxyon 72-20-8994Jziwjpqnipgdju and review of laboratory resultsAbnormal [facility] HospitalMERCYVit D, 25-Lctshdy63.5 ng/mLLow30 - 100 ng/mLTuscarawas HospitalMERCYComment on above: Reference Range: Vitamin D status Range Deficiency <20 ng/mL Mild Deficiency 20-30 ng/mL Sufficiency 30-100 ng/mL Toxicity >100 ng/mL XR CHEST STANDARD (2 VW)on 41-65-0708Dw evidence of acute disease in the chest or change from 02/23/2018.[facility]awas HospitalMERCYCHEST, TWO VIEWS, 09/06/2019: CLINICAL HISTORY: Shortness of [...] atherosclerotic calcification and tortuosity of the thoracic aorta.[facility], Tony, Pauly Incoming Radiant Results From [facility]/[employer] - 09/06/2019 10:11 PM EST CHEST, TWO [...] in the chest or change from 02/23/2018. [facility], MERCY Vital Signs Date TimeVital SignValuePerforming ZqkgkqqtxCpkhukid80-23-9040 09:54-0400Body gxhenq200.02 cmTalberto WATERMAN Work Phone: [phone]10-01-2025 09:54-0400 Body mass index (BMI) [Ratio]62.8 kg/a1Tuumqgregor WATERMAN Work Phone: [phone]10-01-2025 09:54-0400 Body mkvtak946.02 kgTammy Nigel CEJA-Rory Work Phone: [phone]05-07-2025 09:58-0400 Body ijeafs159.6 cmMALINA Dean MD Work Phone: [facility]05-07-2025 09:58-0400Body mass index (BMI) [Ratio]54.72 kg/m2MALINA Dean MD Work Phone: [facility]05-07-2025 09:58-0400Body weight 153.77 kgMALINA Dean MD Work Phone: [facility]05-07-2025 09:58-0400Diastolic blood qxthinvw72 mm[Hg]MALINA Dean MD Work Phone: [phone] [place], [place] 4101705-07-2025 09:58-0400Heart rate85 /ZacMALINA Dean MD Work Phone: [phone] [place], [place] 4101705-07-2025 09:58-0400Respiratory rate22 /Zac Dean MD Work Phone: [phone] [place], [place] 9586405-07-2025 09:58-7056PpN6% (BldA) [Mass fraction]97 %MALINA Dean MD Work Phone: [phone]05-07-2025 09:58-0400Systolic blood taspbftr191 mm[Hg]MALINA Dean MD Work Phone: [phone]01-15-2025 11:52-0500Blood Pressure LocationTammy Nigel [phone]-Bwpxr[address] [place] [address] 07-18-2024 11:52-0500Body zvivhnrkgtr19.52 [degF]Paris Nigel 248-3729Pnyifn-Fvljv[address] [place] [address] 07-18-2024 11:52-0500Diastolic blood cntgpsor56 mm[Hg]Paris Nigel [phone]-Rqyzm[address] [place] [address] 07-18-2024 11:52-0500Heart rate78 /minTammy Nigel [phone]-Dkymd[address] [place] [address] 07-18-2024 11:52-0500Respiratory rate18 /minTammy Nigel [phone]-Kmcse[address] [place] [address] 07-18-2024 11:52-9200WsY7% (BldA) [Mass fraction]98 %Paris Nigel [phone]-Czczx[address] [place] [address] 07-18-2024 11:52-0500Systolic blood mm[Hg]Paris Nigel [phone]-JjprtMagruder Memorial Hospital 07-11-2024 11:15-0500Blood Pressure LocationTamarthay Nigel [phone]-QfpfkMagruder Memorial Hospital 07-11-2024 11:15-0500Body ikoyqlfprao79.52 [degF]Paris Rust [phone]-Natpr[address] [place] [address] 07-11-2024 11:15-0500Diastolic blood putxqqwe99 mm[Hg]Paris Rust [phone]-Wvurm[address] [place] [address] 07-11-2024 11:15-0500Heart rate92 /minTamarthay Nigel [phone]-Inpwk[address] [place] [address] 07-11-2024 11:15-0500Respiratory rate18 /minTammy Nigel 315-1351Fdqjre-Laetw[address] [place] [address] 07-11-2024 11:15-9445FlU8% (BldA) [Mass fraction]99 %Paris Rust 133-0915Bzrcdq-Xwlgu[address] [place] [address] 07-11-2024 11:15-0500Systolic blood mm[Hg]Paris Rust [phone]-Bedlf[address] [place] [address] 06-05-2024 12:57-0500Blood Pressure LocationThniles Hernandez [facility]12-03-2024 12:57-0500 Diastolic blood ndmvpjyn65 mm[Hg]Rick Hernandez [facility]12-03-2024 12:57-0500Heart rate90 /minThomas David [facility]12-03-2024 12:57-0500 Respiratory rate16 /minThomas David [facility]12-03-2024 12:57-4539YsX9% (BldA) [Mass fraction]96 %Rick Hernandez [facility]12-03-2024 12:57-0500 Systolic blood zffvtmdo753 mm[Hg]Rick Hernandez [facility]08-21-2024 13:08-0400Blood Pressure LocationTammy Nigel 189-0007Zmzumm-TextxMagruder [facility] Hospital 02-22-2024 13:08-0400Body hgeaijxtmjw38.88 [degF]Paris Nigel [phone]-UyyrkMagruder Memorial Hospital 02-22-2024 13:08-0400Diastolic blood lmxjxgjy08 mm[Hg]Paris Nigel 630-1563Gtelea-TvgczMagruder Memorial Hospital 02-22-2024 13:08-0400Heart rate63 /minTammy Nigel [phone]-EvimqMagruder Memorial Hospital 02-22-2024 13:08-0400Respiratory rate18 /minTammy Nigel [phone]-PbtfjMagruder Memorial Hospital 02-22-2024 13:08-0436XuF3% (BldA) [Mass fraction]99 %Paris Nigel [phone]-QcsafMagruder Memorial Hospital 02-22-2024 13:08-0400Systolic blood mm[Hg]Paris Nigel [phone]-UvsebMagruder Memorial Hospital 12-23-2023 13:25-0400Diastolic blood sikabawt84 mm[Hg]Cardoso Sarmini [facility]06-21-2024 13:25-0400Heart rate78 /minMuhammad Sarmini [facility]06-21-2024 13:25-0400Mean blood gjvkicyd174 mm[Hg]Cardoso Sarmini [address] [place], [place] 8901906-21-2024 13:25-0400 Respiratory rate24 /minMuhammad Sarmini [facility]06-21-2024 13:25-6425JkP0% (BldA) [Mass fraction]98 %Cardoso Sarmini [address] [place], [place] 8901906-21-2024 13:25-0400 Systolic blood gfhcuxwg786 mm[Hg]Cardoso Sarmini [address] [place], [place] 8901906-21-2024 13:15-0400 Diastolic blood fufqwigo13 mm[Hg]Cardoso Sarmini [address] [place], [place] 8901906-21-2024 13:15-0400Heart rate69 /minMuhammad Sarmini [address] [place], [place] 8901906-21-2024 13:15-0400Mean blood wyuhmaua041 mm[Hg]Cardoso Sarmini [address] [place], [place] 8901906-21-2024 13:15-0400 Respiratory rate17 /minMuhammad Sarmini [address] [place], [place] 8901906-21-2024 13:15-6905CbW3% (BldA) [Mass fraction]99 %Cardoso Sarmini [address] [place], [place] 8901906-21-2024 13:15-0400 Systolic blood rasyndrr880 mm[Hg]Cardoso Sarmini [address] [place], [place] 8901906-21-2024 13:10-0400 Diastolic blood ycuqkvuh72 mm[Hg]Cardoso Sarmini [address] [place], [place] 8901906-21-2024 13:10-0400Heart rate85 /minMuhammad Sarmini [facility]06-21-2024 13:10-0400Mean blood rjzuryag087 mm[Hg]Cardoso Sarmini [facility]06-21-2024 13:10-0400 Respiratory rate15 /minMuhammad Sarmini [address] [place], [place] 8901906-21-2024 13:10-2564NnG8% (BldA) [Mass fraction]99 %Cardoso Sarmini [address] [place], [place] 8901906-21-2024 13:10-0400 Systolic blood pipfqswy742 mm[Hg]Cardoso Sarmini [address] [place], [place] 4081006-21-2024 13:00-0400Body ryihrrjixpg81.7 [degF]Cardoso Sarmini [facility]06-21-2024 10:45-0400Blood Pressure LocationMuhammad Sarmini [facility]06-21-2024 10:45-0400Body mmgehjlppcf77.88 [degF]Cardoso Sarmini [facility]06-04-2024 14:51-0400Blood Pressure LocationAlcidesdaniele Pugasilvana [facility]06-04-2024 14:51-0400 Diastolic blood coqgxgtm27 mm[Hg]Alirio Ramirez [facility]06-04-2024 14:51-0400Heart rate86 /minAlcidesan Adam [facility]06-04-2024 14:51-9639GnN5% (BldA) [Mass fraction]94 %Alirio Adam [facility]06-04-2024 14:51-0400 Systolic blood flnawnxo789 mm[Hg]Alirio Adam [facility]05-24-2024 14:30-0400Blood Pressure LocationTammandre Rust [phone]-IwggsMagruder Memorial Hospital 11-25-2023 14:30-0400Body .8 [degF]Paris Rust [phone]-AhjybMagruder Memorial Hospital 11-25-2023 14:30-0400Diastolic blood gubmgjag41 mm[Hg]Paris Rebolledoant 602-5750Vwceed-QfzpeMagruder Memorial Hospital 11-25-2023 14:30-0400Heart rate89 /minTammy Nigel [phone]-OwstoMagruder Memorial Hospital 11-25-2023 14:30-0400Respiratory rate22 /minTammy Nigel [phone]-IecotMagruder Memorial Hospital 11-25-2023 14:30-6758ZnB2% (BldA) [Mass fraction]98 %Paris Rust [phone]-ZgswpMagruder Memorial Hospital 11-25-2023 14:30-0400Systolic blood mm[Hg]Paris Nigel [phone]-KqimoMagruder Memorial Hospital 11-02-2023 10:06-0400Blood Pressure LocationMuhammad Sarmini [phone]-OvufkWright[facility]05-01-2024 10:06-0400Diastolic blood mm[Hg]Cardoso Sarmini [phone]-AddmbWright-[facility]05-01-2024 10:06-0400Heart rate78 /minMuhammad Sarmini [phone]-YvyblWright-[facility]05-01-2024 10:06-0400Respiratory rate18 /minMuhammad Sarmini [phone]-QzlkbWright-[facility]05-01-2024 10:06-0400Systolic blood dhlzbcno150 mm[Hg]Cardoso Sarmini [phone]-FmllrWright-[facility]04-24-2024 13:12-0400Blood Pressure LocationTammy Nigel [phone]-XfcemMagruder Memorial Hospital 10-26-2023 13:12-0400Diastolic blood xlqjsytz59 mm[Hg]Paris Nigel [phone]-Gswmp[address] [place] [address] 10-26-2023 13:12-0400Heart rate77 /minTammy Nigel [phone]-YuwtyMagruder Memorial Hospital 10-26-2023 13:12-0400Respiratory rate16 /minTammy Nigel [phone]-PwfjmMagruder Memorial Hospital 10-26-2023 13:12-3954DkK0% (BldA) [Mass fraction]99 %Paris Nigel [phone]-QuekxMagruder Memorial Hospital 10-26-2023 13:12-0400Systolic blood mm[Hg]Paris Nigel [phone]-HyvlcMagruder [facility] Hospital 10-25-2023 14:56-0400Blood Pressure Carlos Ramirez [facility]04-23-2024 14:56-0400 Diastolic blood bfauiawl25 mm[Hg]Alirio Ramirez [facility]04-23-2024 14:56-0400Heart rate96 /Nataly Ramirez [facility]04-23-2024 14:56-4544SrN5% (BldA) [Mass fraction]67 %Alirio Adam [facility]04-23-2024 14:56-0400 Systolic blood lfivtary764 mm[Hg]Alirio Ramirez [facility]04-09-2024 17:33-0400 Diastolic blood ftuqlydq45 mm[Hg]Paris Rust [phone]-Sbfbz[address] [place] [address] 10-11-2023 17:33-0400Mean blood paqghuzt605 mm[Hg]Paris Rust [phone]-Sbyky[address] [place] [address] 10-11-2023 17:33-0400Systolic blood mm[Hg]Paris Rebolledoant [phone]-Gdrdn[address] [place] [address] 10-11-2023 14:21-0400Blood Pressure LocationTammy Nigel [phone]-Srkqa[address] [place] [address] 10-11-2023 14:21-0400Body qfotnrhwxme73.6 [degF]Paris Rebolledoant 402-0768Gaeker-Xlosb[address] [place] [address] 10-11-2023 14:21-0400Diastolic blood zivpcroo11 mm[Hg]Paris Rebolledoant 463-7741Buzmjy-Vzaxn[address] [place] [address] 10-11-2023 14:21-0400Heart rate65 /minTammy Nigel 865-8292Zjkfqk-Hrdiy[address] [place] [address] 10-11-2023 14:21-0400Respiratory rate20 /minTammy Nigel 085-8668Twszsi-Pnkir[address] [place] [address] 10-11-2023 14:21-6644TwB3% (BldA) [Mass fraction]95 %Paris Nigel 366-8184Rzlszd-Adpal[address] [place] [address] 10-11-2023 14:21-0400Systolic blood mm[Hg]Paris Nigel 674-3740Mbasxo-Fssyy[address] [place] [address] 08-10-2023 14:19-0500Blood Pressure LocationTammy Nigel 139-4082Sfwgut-Shbwj[address] [place] [address] 08-10-2023 14:19-0500Body jtoduzdjfbz40.88 [degF]Paris Nigel 299-2497Avjeos-Ltvyd[address] [place] [address] 08-10-2023 14:19-0500Diastolic blood cmwnamgu91 mm[Hg]Paris Nigel 849-5660Danjzz-Xtifi[address] [place] [address] 08-10-2023 14:19-0500Heart rate90 /minTammy Nigel 898-7483Lkkzby-Nwswf[address] [place] [address] 08-10-2023 14:19-0500Respiratory rate20 /minTammy Nigel 870-1097Coruzf-Paixg[address] [place] [address] Doc 08-10-2023 14:19-6848DaW1% (BldA) [Mass fraction]95 %Paris Nigel 061-6712Ocwzva-Bummn[address] [place] [address] 08-10-2023 14:19-0500Systolic blood mm[Hg]Paris Nigel 333-3027Dpitke-Injxx[address] [place] [address] 05-09-2023 08:04-0500Blood Pressure Renu Carrero 282-0380Pcomoj-Pxqjm[address] [place] [address] 05-09-2023 08:04-0500Body hziiycnqstg39.24 [degF]Ansley Carrero 256-2658Qnwulg-Crbun[address] [place] [address] 05-09-2023 08:04-0500Diastolic blood cvoambqb08 mm[Hg]Ansleykeisha HowardCarrero 918-6032Qqcwqw-Kiqkz[address] [place] [address] 05-09-2023 08:04-0500Heart rate77 /minEgogo Howardzier 053-5912Rjtrrn-Nsdyv[address] [place] [address] 05-09-2023 08:04-0500Respiratory rate18 /minEgogo Carrero 320-6856Oiidfe-Cctza[address] [place] [address] 05-09-2023 08:04-1968CpN8% (BldA) [Mass fraction]96 %Ansley Magan 186-3970Ddowed-Sfhdm[address] [place] [address] 05-09-2023 08:04-0500Systolic blood gmhtuudh070 mm[Hg]Ansley Carrero 741-1794Qdspos-Bwidf[address] [place] [address] 04-26-2023 10:59-0400Blood Pressure LocationTammy Nigel 015-7326Cblydc-Jjaon[address] [place] [address] 04-26-2023 10:59-0400Body clzjykhhhgt88.6 [degF]Paris Rebolledoant 619-4726Obkvkt-Ftocx[address] [place] [address] 04-26-2023 10:59-0400Diastolic blood ninruehj48 mm[Hg]Paris Nigel 868-8626Mtwmrd-Rclyn[address] [place] [address] 04-26-2023 10:59-0400Heart rate78 /minTammy Nigel 730-9852Svqqcr-Brfpi[address] [place] [address] 04-26-2023 10:59-0400Respiratory rate18 /minTammy Nigel 410-2378Ivlqau-Uwjgy[address] [place] [address] 04-26-2023 10:59-4138HlN0% (BldA) [Mass fraction]98 %Paris Nigel 052-1458Liorha-VehggMag[facility]uder [facility] 04-26-2023 10:59-0400Systolic blood uypctinj448 mm[Hg]Paris Rust 508-6123Akunrt-Krevu[address] [place] [address] 03-18-2023 11:51-0400Blood Pressure LocationTammy Nigel 441-3538Fzmxkc-Pyvxb[address] [place] [address] 03-18-2023 11:51-0400Body lqydusowchj84.7 [degF]Paris Rust 297-8931Pcswqv-Cnyrt[address] [place] [address] 03-18-2023 11:51-0400Diastolic blood jlehoplp62 mm[Hg]Paris Nigel 917-7219Rxoiuf-Vemgg[address] [place] [address] 03-18-2023 11:51-0400Heart rate78 /minTammy Nigel 745-2810Odrmow-Skupz[address] [place] [address] 03-18-2023 11:51-0400Respiratory rate16 /minTammy Nigel 859-1953Pejdrv-Hohhk[address] [place] [address] 03-18-2023 11:51-2633IvT9% (BldA) [Mass fraction]94 %Paris Rust 017-6343Qkjdlf-Qgmwd[address] [place] [address] 03-18-2023 11:51-0400Systolic blood lljvvbad035 mm[Hg]Paris Rebolledoant 577-5020Cgbfep-Zjcja[address] [place] [address] 10-15-2022 05:30-0400Diastolic blood mm[Hg]Demetra Cruz MD Work Phone: [facility]OS[facility]ITALUWRGZX24-77-2709 05:30-0400Heart rate98 /Benny Cruz MD Work Phone: [facility]OS[facility]ITALCOZYNU71-73-4474 05:30-0400 Respiratory rate21 /minDemetra Cruz MD Work Phone: [employer] [facility]ITALXVVSYR48-15-3920 05:30-0400Systolic blood yoiidlof193 mm[Hg]Demetra Cruz MD Work Phone: [employer] [facility]OSPITALMFJAGO37-17-0714 05:15-9667VkH4% (BldA) [Mass fraction]89 %Demetra Cruz MD Work Phone: [employer] [facility] HOSPITALYDTBIX07-88-1588 21:50-0400Body vtagyj712.2 cmDemetra Cruz MD Work Phone: [employer] [facility] HOSPITALBSOSDA91-34-4822 21:50-0400Body mass index (BMI) [Ratio]51.22 kg/z6WnklawDemetra Cruz MD Work Phone: bon [facility]ITALOpenAir [facility]ITALUNXNOZ54-36-1928 21:50-0400Body ucjjqlqnowi03.1 [degF]Demetra Cruz MD Work Phone: [employer] [facility]ITALJMRYYH14-54-1571 21:50-0400Body wrktej204.33 kgDemetra Cruz MD Work Phone: bon [facility]ITALOpenAir [facility] HOSPITALUJBHUG73-91-2590 08:55-0400Blood Pressure LocationCarmen Haley [facility]04-12-2023 08:55-0400 Diastolic blood wmxvuvft65 mm[Hg]Carmen Haley [facility]04-12-2023 08:55-0400Heart rate79 /minCarmen Haley [facility]04-12-2023 08:55-9686ApA8% (BldA) [Mass fraction]93 %Carmen Haley [facility]04-12-2023 08:55-0400 Systolic blood wonsuutc390 mm[Hg]Carmen Haley [facility]03-29-2023 11:33-0400Blood Pressure LocationCarmen Haley [facility]03-29-2023 11:33-0400 Diastolic blood xocxstiq23 mm[Hg]Carmen Haley [facility]03-29-2023 11:33-0400Heart rate90 /minCarmen Haley [facility]03-29-2023 11:33-8452CqD1% (BldA) [Mass fraction]93 %Carmen Haley [facility]03-29-2023 11:33-0400 Systolic blood tauqxrhc860 mm[Hg]Carmen Haley [facility]03-24-2023 14:40-0400Blood Pressure LocationLupis LangoLab 236-6351Eosapn-Nadbz[address] [place] [address] 09-24-2022 14:40-0400Body lkxsnlrfayx81.16 [degF]Lupis [facility] 658-9703Bszsdf-Coitk[address] [place] [address] 09-24-2022 14:40-0400Diastolic blood pnftbaet18 mm[Hg]Lupis SCHWARTZ 381-2238Oixkou-Qvtdg[address] [place] [address] 09-24-2022 14:40-0400Heart rate83 /minLupis SCHWARTZ 847-4989Wvfpyn-Zuhjy[address] [place] [address] 09-24-2022 14:40-0400Respiratory rate24 /minLupis SCHWARTZ 642-4247Oznvyp-Zyhpa[address] [place] [address] 09-24-2022 14:40-4522EhK0% (BldA) [Mass fraction]92 %Lupis [facility] 300-0192Agnuzp-Svvha[address] [place] [address] 09-24-2022 14:40-0400Systolic blood sejhlame846 mm[Hg]Lupis [facility] 470-5505Uyuauk-Qunov[address] [place], [place] [address]ard 09-22-2022 08:08-0400Blood Pressure LocationCarmen Haley [facility]03-22-2023 08:08-0400 Diastolic blood luertwzg55 mm[Hg]Carmen Haley [facility]03-22-2023 08:08-0400Heart rate72 /minCarmen Haley [facility]03-22-2023 08:08-6837JtC9% (BldA) [Mass fraction]94 %Carmen Haley [facility]03-22-2023 08:08-0400 Systolic blood hklghzki201 mm[Hg]Carmen Haley [facility]03-14-2023 11:55-0400Heart rate79 /minDO Joo Rachel Work Phone: [facility]03-14-2023 11:55-0400 Respiratory rate20 /minDO Joo Rachel Work Phone: [facility]03-14-2023 08:41-0400 SaO2% (BldA) [Mass fraction]95 %DO Joo Rachel Work Phone: [facility]03-14-2023 07:36-0400 Diastolic blood ixwmgfyi09 mm[Hg]DO Joo Rachel Work Phone: [facility]03-14-2023 07:36-0400 Systolic blood msgyaxte484 mm[Hg]DO Joo Rachel Work Phone: [facility]03-14-2023 05:21-0400 Body .9 kgDO Joo Rachel Work Phone: [facility]03-14-2023 03:46-0400 Body tqcbrratsov51.1 [degF]DO Joo Rachel Work Phone: [facility]03-13-2023 15:35-0400 Body ntgmec087.02 cmDO Joo Ramos Work Phone: [facility]03-11-2023 20:33-0500 Inhaled oxygen flow rate2 L/minDO Joo Ramos Work Phone: [facility]03-10-2023 14:03-0500 Diastolic blood otkzmuek26 mm[Hg][facility]03-10-2023 14:03-0500Heart rate86 /[facility]03-10-2023 14:03-0500Inhaled oxygen flow rate2 L/[facility] 09-10-2022 14:03-0500Respiratory rate20 /[facility] 09-10-2022 14:03-0792ZhB4% (BldA) [Mass fraction]98 %[facility]03-10-2023 14:03-0500Systolic blood tvfqexxb043 mm[Hg][facility]03-10-2023 11:11-0500Body .02 cmBar[facility]03-10-2023 11:11-0500Body kbzntqguclt10.6 [degF][facility]03-10-2023 11:11-0500Body knybms181 kgBarney [facility]03-06-2023 11:23-0500Blood Pressure LocationLupis SCHWARTZ 377-9002Sfetmz-QgbxuMagruder [facility] Hospital 09-06-2022 11:23-0500Body wgejwrztoor65.16 [degF]Lupis SCHWARTZ 368-8257Tilffk-LhqzfMagruder Memorial Hospital 09-06-2022 11:23-0500Diastolic blood phiuzlks55 mm[Hg]Lupis SCHWARTZ 912-8764Vkrlyx-OurpzMagruder Memorial Hospital 09-06-2022 11:23-0500Heart rate83 /Arden SCHWARTZ 496-4261Duacbi-Wygje[address] [place] [address] 09-06-2022 11:23-0500Respiratory rate28 /minLupis EFREN 587-4437Qbvoix-Dqhrt[address] [place] [address] 09-06-2022 11:23-8495LcU1% (BldA) [Mass fraction]94 %[facility] 230-8633Xyivgf-Tazto[address] [place] [address] 09-06-2022 11:23-0500Systolic blood ybszdbgy121 mm[Hg][facility] 574-4465Xkkqvg-Iqblp[address] [place] [address] 08-20-2022 15:03-0500Diastolic blood mm[Hg][facility] 817-0307Defesf-Mhyqt[address] [place] [address] 08-20-2022 15:03-0500Mean blood maxmqtnx910 mm[Hg][facility] 659-6741Shjciy-Bkeez[address] [place] [address] Doc 08-20-2022 15:03-0500Systolic blood sdqbeuac991 mm[Hg][facility] 177-3873Bcuwvd-Wadzn[address] [place] [address] Doc 08-20-2022 13:59-0500Blood Pressure LocationLupis [facility] 966-5683Spgabf-Fbbto[address] [place] [address] 08-20-2022 13:59-0500Body esxhenanuch08.98 [degF][facility] 812-7795Dciylj-Fzovq[address] [place] [address] Doc 08-20-2022 13:59-0500Diastolic blood cordclkk370 mm[Hg][facility] 882-7276Dlnczi-Gllie[address] [place] [address] 08-20-2022 13:59-0500Heart rate77 /minLupis [facility] 786-7852Shrwhd-Skiob[address] [place] [address] 08-20-2022 13:59-0500Respiratory rate28 /Arden [facility] 559-4554Gafakn-Vgbot[address] [place] [address] 08-20-2022 13:59-8014WlQ0% (BldA) [Mass fraction]97 %Lupis EFREN 197-7173Krbqsg-YthxpMagruder Memorial Hospital 08-20-2022 13:59-0500Systolic blood wadcnmnq614 mm[Hg]Lupis SCHWARTZ 173-3175Ajpfwz-QbczlMagruder Memorial Hospital 12-30-2021 11:01-0400Blood Pressure LocationParish RUBIO 831-4201Oxqfed-CakhdBlanchard [facility]ard 06-29-2022 11:01-0400Body frwbxouthgc03.42 [degF]Parish RUBIO 019-5206Qfbrhy-GvsqjBlanchard Valley [facility] Hospitalard 06-29-2022 11:01-0400Diastolic blood nblajbqz01 mm[Hg] Parish RUBIO 903-4664Eqptng-AskuuBlanchard Valley Health System [facility] Hospitalard 06-29-2022 11:01-0400Heart rate73 /minSoniadaron RUBIO 594-1693Bxksnm-JcgkzOhiohealth [facility] Doc 06-29-2022 11:01-9860VbO1% (BldA) [Mass fraction]96 % Parish RUBIO 063-8187Emgyzr-OxrmlOhiohealth [facility] [place] 06-29-2022 11:01-0400Systolic blood hdbsmyid450 mm[Hg] Parish RUBIO 432-3873Khgewm-SjoojOhiohealth [facility] [place] 01-06-2022 08:54-0500Body fuytjo489.6 cmMwhz Education Work Phone: [facility] HamiltonVzkofr38-71-8715 08:54-0500Body mass index (BMI) [Ratio]55.17 kg/m2Mwhz Education Work Phone: [facility] HospitalBlue Wheel TechnologiesJfkqmo97-01-7476 08:54-0500Body nqyckf334.04 kg [employer] Work Phone: [facility] HospitalBlue Wheel TechnologiesLeyiiq08-55-6336 09:46-0500Body oyuzyv110.6 cm [employer] Work Phone: [facility] HospitalBlue Wheel TechnologiesAkrsgf61-51-9324 09:46-0500Body mass index (BMI) [Ratio]56.27 kg/m2Mwhz Education Work Phone: [facility] HospitalBlue Wheel TechnologiesTcuxsi80-84-7538 09:46-0500Body illgsj594.12 kg [employer] Work Phone: [facility] HospitalBlue Wheel TechnologiesOukkau04-20-0488 12:10-0400BP Qjixxykvv67 mm[Hg] [facility], DV85-59-1768 12:10-0400BP Bmauwlkq674 mm[Hg][facility], PH75-11-3674 12:10-0400Pulse (Heart Rate)62 /[facility], TI43-84-7501 12:10-0400Pulse Zgrppzdf35 %[facility], DF99-52-9857 12:10-0400Respiratory Rate18 /[facility], UG22-00-4327 11:39-0400Body Xqryrrizusx54.4 [degF][facility], QQ03-79-3031 08:43-0400BMI (Body Mass Index)51.84 kg/m2[facility], CX17-55-7466 08:43-0400Body ksiyfk055.14 kg [facility], TH57-07-7676 08:43-1264Edzkhu446.2 [facility], GU88-18-3968 13:09-0500Pulse Evafrtwf56 %[facility] [place] Encounters Encounter DateEncounter TypeCare ProviderFacilityStart: 00-38-6522ffqtyeeibtventura RustFacility: WillardStart: 04-22-2025 End: 75-48-7771cbdwwlsxemFjajvad Vytautas Giedraitis MDFacility:PM Leni Start: 04-09-2025 End: 89-80-0736ceakyqbfehQlpca L. BryantFacility: WillardStart: 04-09-2025 End: 27-34-4256Tdaqwkx encounter procedureTagregor Rust 047-7205Kiphrq-NjrjgHarrison Community Hospital [facility] [place] Start: 04-03-2025 End: 42-54-3032srllmwlvfuRvhbm L Bryant NP-C Work Phone: [facility] Work Phone: Start: 04-03-2025 End: 73-39-5821Muxeffh encounter procedureEric N [facility] Work Phone: start: 03-12-2025 End: 21-95-5734feofagqcnkQZ-C Thomas A SteinFacility:FTMCStart: 03-05-2025 End: 73-93-3728kdwilcezzpGygng L. BryantFacility: ardStart: 03-05-2025 End: 32-56-5939Zbjvnbq encounter procedureParis Rust 393-2898Bbdvkw-SjkcxHarrison Community Hospital [facility] [place] Start: 02-11-2025 End: 74-70-5947tdpmuavlapUtdfwus Vytautas Giedraitis MDFacility:PM Nellis Start: 02-04-2025 End: 65-57-5793jdarwztgfdWlwji L. BryantFacility: WillardStart: 02-04-2025 End: 57-87-5128Eqwgxiz encounter procedureTagregor Rust 611-5150Rmociw-BsvtdProvidence Hospital Medicine [place] Start: 01-29-2025 End: 77-53-9380cqczxiaavxQHJessica HernandezFacility:FTMCStart: 01-24-2025 End: 31-28-2797Sobnmknxd department patient visitMakamron Newman Facility:FTMCStart: 01-21-2025 End: 64-43-1808rxnbtvwndiSwyoobx Gilbert Palmer MDFacility:PM Nellis Start: 01-07-2025 End: 12-96-3071wfegrkdycgJrpuv L. BryantFacility:FTMCStart: 01-07-2025 End: 45-62-0069Nsywnka encounter procedureTagregor Rust [facility] Start: 01-02-2025 End: 25-71-0631Ypd Drop offParis Rust [facility] Start: 01-02-2025 End: 15-01-8149kxioaoqldgUdhut L. BryantFacility: WillardStart: 01-02-2025 End: 87-82-2994Ojwpvgj encounter procedureTagregor Rust 502-3621Nnvayb-HisunMagruder Memorial Hospital Start: 01-01-2025 End: 09-14-3185uaxtbomhheTwipkd A SteinFacility:FTMCStart: 01-01-2025 End: 79-42-1591Xpphruh encounter procedureRick Hernandez [facility] Start: 12-31-2024 End: 56-37-9790ozotvjnjteLafyr L. BryantFacility:CD:[id number]: 12-27-2024 End: 41-40-8379Mvksjlspdr and management of inpatientLaconstantino Kaur Facility:FTMCStart: 29-91-2563Jmyzkpcga department patient visitWhit Simms Facility:FTMCStart: 12-27-2024 End: 64-94-9510Mdfaubhnvs and management of inpatientLaconstantino Kaur III [facility] Start: 12-19-2024 End: 35-83-8535xxkictqdxxInqos L. BryantFacility:FTMCStart: 12-19-2024 End: 83-54-6832Kjbwhft encounter procedureTagregor Rust [facility] Start: 12-19-2024 End: 86-39-8988Jxt Drop offParis Rust [facility] Start: 12-19-2024 End: 38-67-0132uylmmnkiezHzasb L. BryantFacility:FM WillardStart: 12-19-2024 End: 37-98-1966Muuqwbf encounter procedureTamarthay Joy Rust 042-0950Wzmwtr-RqgodHarrison Community Hospital [facility] [place] Start: 11-27-2024 End: 55-03-3732usmtkdwfozOxpnm L. BryantFacility: WillardStart: 11-27-2024 End: 95-63-0921Nxrysks encounter procedureTagregor Rust 762-2024Pcdnzq-FlvlzHarrison Community Hospital Family Medicine Doc Start: 11-07-2024 End: 98-97-8761Hgyacv outpatient new 60 minutesS Dylon Dean MD Work Phone: [facility] Bariatric ClinicComment on above: Gastroesophageal reflux disease, unspecified whether esophagitis present (Primary Dx); Morbid obesity with BMI of 50.0-59.9, adult; BRENDA (obstructive sleep apnea); Type 2 diabetes mellitus without complication, without long-term current use of insulinStart: 78-48-1921kojyztszxpD DYLON Fan [facility] Start: 10-29-2024 End: 23-17-6395ullfdbkwijBwmzfhr Vytautas Giedraitis MDFacility:PM Nell[place] Start: 09-12-2024 End: 39-16-1118Let Drop offParis Rust [facility] Start: 09-12-2024 End: 91-29-9214qfipspvmhaNpsnl L. BryantFacility:FM WillardStart: 08-29-2024 End: 77-47-4562ureefjevgnPlkav L. BryantFacility:FM WillardStart: 08-29-2024 End: 63-40-0680Orogcdv encounter procedureParis Rust [phone]-GtzfsProvidence Hospital Medicine Doc Start: 07-23-2024 End: 77-69-9538ubbsebfudyGebuiku Vytautas Giedraitis MDFacility:PM Leni Start: 07-18-2024 End: 01-81-8414vxdkiperjeSsrqo L. BryantFacility: WillardStart: 07-18-2024 End: 19-55-7446Tcxvkkz encounter procedureParis Rust [phone]-BhloxProvidence Hospital Medicine Doc Start: 07-13-2024 End: 27-78-8321Sle Drop offParis Rust [facility] Start: 07-13-2024 End: 45-24-3798ngqjzdvpfbMYZ, CAP SIZER-PHOTO OFFSET PRINTER Paris RustFacility:FTMCStart: 07-13-2024 End: 84-34-2039Ereizbo encounter procedureTammandre L. Nigel [phone]-UwmgeHarrison Community Hospital [facility] [place] Start: 07-11-2024 End: 89-18-9780utswjgtjyuExbjd L. BryantFacility: WillardStart: 07-11-2024 End: 31-60-6746Jtorgjh encounter procedureTagregor Rust 619-2422Zcmomz-VqeimHarrison Community Hospital Family Medicine Doc Start: 06-05-2024 End: 15-96-4863snwihikgpaYJ-C Thomas A SteinFacility:FTMCStart: 06-05-2024 End: 16-87-5735Ctqhvhp encounter procedureRick Hernandez [facility] Start: 05-21-2024 End: 33-35-3899mnnhwsunaoDzplgkjRj Palmer MDFacility:PM Leni Start: 02-22-2024 End: 35-70-8117mcsewuseriGPP, CAP SIZER-IRVING RustFacility: tart: 02-22-2024 End: 70-30-2704Vamwcmi encounter procedureTagregor Rust 452-1560Wetzzw-UzhiqHarrison Community Hospital Family [facility] Doc Start: 02-10-2024 End: 88-66-3678Hjz-admission assessmentMuhammad Talal Sarmini [facility] Start: 01-27-2024 End: 08-40-2613ednxebkqlqSsmhwxbg Talal SarminiFacility:[facility] DHStart: 01-27-2024 End: 17-83-0492Epyafql encounter procedureMuhammad Talal Sarmini [phone]-KoehiHarrison Community Hospital [facility] Start: 12-23-2023 End: 50-29-8281rplgpivcfnIgsqcmed Talal SarminiFacility:FTMCStart: 12-23-2023 End: 64-04-4374Gahksne encounter procedureMuhammad Talal Sarmini [facility] Start: 12-19-2023 End: 48-22-3345yxslbzuszpEUGHVNate Alanis [place] HospitalStart: 12-06-2023 End: 93-28-6932jzujbeyyrqAhcuBreanna RamirezFacility:FTMCStart: 12-06-2023 End: 30-48-7168Fvarxqu encounter Albino Ramirez [facility] Start: 11-25-2023 End: 79-52-3319fhtegbovydZRI, CAP SIZER-IRVING RustFacility: ardStart: 11-25-2023 End: 63-34-1399Pesrdgh encounter Tracey Rust 350-2093Xtjkyv-HimlxHarrison Community Hospital [facility] [place] Start: 11-17-2023 End: 56-39-0673mkwxnavsqpHMHMLoli Patel [place] HospitalStart: 13-53-5390ogxrttghblAGK, CAP SIZER-IRVING RustFacility: WillardStart: 11-08-2023 End: 38-79-1652vcscpepwbgOeqdLoli RamirezFacility:FTKAISER PERMANENTE MEDICAL CENTERtart: 11-08-2023 End: 19-73-0745Pkpvyjw encounter Albino Ramirez [facility] Start: 11-02-2023 End: 95-39-5995qdbafgtegiJxlnvcvz Talal SarminiFacility:[facility] Hospitalus DHStart: 11-02-2023 End: 76-02-5465Dndipha encounter procedureMuanoop Phillip [phone]-WihheHarrison Community Hospital [facility] Start: 10-26-2023 End: 06-88-3093suhbpihfosLQG, APRN-IRVING RustFacility: WillardStart: 10-26-2023 End: 24-01-7581Tilfdqf encounter procedureTagregor Rust [phone]-VfvouHarrison Community Hospital [facility] [place] Start: 10-25-2023 End: 71-08-5918hosehdlqonEXJM NONEFacility:FTMCStart: 10-25-2023 End: 07-81-4036Kzmnecl encounter Albino Ramirez [facility] Start: 10-11-2023 End: 75-15-6013psfrwvsgubUQF, APRN-IRVING RustFacility: WillardStart: 10-11-2023 End: 38-15-8126Kookjti encounter procedureTagregor Rust [phone]-CfkadHarrison Community Hospital [facility] [place] Start: 10-06-2023 End: 70-95-5202Vodxtpgrm department patient visitTAMMY [facility] HospitalStart: 08-30-2023 End: 14-60-0433iyljxbfsrlKTQVEAravind Yarbrough HospitalStart: 08-24-2023 End: 73-23-4610hntczgiyauOKSHL BRYANTMercy Tiffin HospitalStart: 08-10-2023 End: 98-38-8099kbvmoejsgnJFJYX BRYANTMercy Willard HospitalStart: 08-10-2023 End: 77-62-1249Vcwqjlwkbv hospital visit by physicianMwh Additional Xray At Mw MWHZ LaboratoryComment on above:Right hip painStart: 08-10-2023 End: 80-58-1393Uoiixdx encounter procedureParis Rust [phone]-GzyjzBlanchard [facility] Start: 07-21-2023 End: 37-32-3829Eucxdfbxll hospital visit by Karen Shea Physical TherapyStart: 07-20-2023 End: 19-62-5115Ypgungtqdo hospital visit by Finesse YOUNG Physical TherapyStart: 07-14-2023 End: 51-94-1142Ewaaqvxsqb hospital visit by Karen Shea Physical TherapyStart: 07-11-2023 End: 27-65-1832mdougkbdrfDTWASelect Medical Specialty Hospital [facility] Cincinnatitart: 07-08-2023 End: 17-52-2601Xoahsgecpw hospital visit by Karen Shea Physical TherapyStart: 07-07-2023 End: 74-69-3586sbswaivmmzOIAZSelect Medical Specialty Hospital [facility]atitart: 07-06-2023 End: 89-06-6266Wvfjfpqzkt hospital visit by Karen Shea Physical TherapyStart: 96-70-7420nbkpopkjrlFCZGMercy Health West Hospital Start: 06-21-2023 End: 54-13-9358zkjtvvbnnvMLYXSelect [facility]itart: 05-10-2023 End: 23-73-4779Pjh-admission assessmentLele Grijalva [facility] Start: 05-09-2023 End: 79-30-5441Tgjqzbc encounter Roland Carrero [phone]-XhyjtMagruder Memorial Hospital Start: 04-29-2023 End: 81-00-9556Qvayjqjke department patient visitVESELIN [facility] Hospitaltart: 04-26-2023 End: 04-99-5439Oeqndma encounter procedureTagregor Rust [phone]-BtzntMagruder Memorial Hospital Start: 03-18-2023 End: 28-43-2204Hhnezmc encounter procedureTagregor Rust [phone]-EdoxkMagruder Memorial Hospital Start: 12-01-2022 End: 83-05-9691Zhdsfcbhtr hospital visit by physicianMet[facility] Vascular LabComment on above:Fatigue, unspecified type; Screening, lipidStart: 11-26-2022 End: 30-51-4700Iuyyish encounter procedureTagregor Rust [phone]-UqixeMagruder Memorial Hospital Start: 76-31-2643pmtzmbbuwoMqyqmrtx:45471Hqupv: 10-19-2022 End: 26-03-6361HcysdpxlyZopmd P. Wiarda [facility] Start: 10-19-2022 End: 34-60-1481Xirzarxwbn hospital [facility]Mon[facility] RadiologyComment on above:Left hand weaknessWeakness of both legsStart: 10-14-2022 End: 90-87-7979Tiyibykdb department patient visitDemetra Cruz MD Work Phone: [facility] - [employer] EDComment on above:Alcohol abuse (Primary Dx)Start: 10-13-2022 End: 57-97-0744Kutdmeseeq hospital visit by Meir Taylor CNP Work Phone: mWHZ LaboratoryStart: 10-13-2022 End: 44-03-4777Aov-admission assessmentCarmen Haley [facility] Start: 10-06-2022 End: 63-04-5067Bbc Drop offLupis SCHWARTZ [facility] Start: 10-06-2022 End: 06-59-5111Zqszyfe encounter Gurdeep SCHWARTZ [phone]-GopaaH[facility] [place] Start: 09-29-2022 End: 87-72-7750Wal Drop offCarmen Haley [facility] Start: 09-29-2022 End: 68-15-1216Iae-admission Adilson Haley [facility] Start: 09-27-2022 End: 56-28-7349Hlz Drop offParis Rust [facility] Start: 09-27-2022 End: 28-18-2668Ekfhwpp encounter Tracey Rust [phone]-TjysmH[facility] [place] Start: 09-24-2022 End: 08-38-6660Trowrhr encounter Gurdeep SCHWARTZ [phone]-NsfemHarrison [facility] [place] Start: 09-22-2022 End: 75-26-6511Djzcuek encounter Stefani Haley [facility] Start: 89-26-7376wlijcibtegXrpnqful:CStart: 09-10-2022 End: 67-07-9485Ceveozqgrn and management of inpatientObaandi eMjiaomar [facility]: 13-24-5051ktotgwrzli Facility:[id number]: 09-10-2022 End: 75-05-0340Fjrjssntfg and management of inpatientK[facility] Work Phone: Start: 09-06-2022 End: 02-17-2580Ggt Drop offLupis SCHWARTZ [facility] Start: 09-06-2022 End: 91-71-5280Kdfanwm encounter Gurdeep SCHWARTZ [phone]-QcceeOhiohealth Grove [facility] Doc Start: 08-27-2022 End: 04-25-9353Fbiaceytca hospital visit by Stevo Echo Room Devandre AcevedoDoc [facility] ECHOComment on above:Hypertension, unspecified type; Bilateral leg edemaStart: 08-20-2022 End: 23-69-6326Stt Drop offLupis SCHWARTZ [facility] Start: 08-20-2022 End: 20-68-7726Bgjwweu encounter Gurdeep SCHWARTZ [phone]-GsyisBlanchard Valley Health [facility] Start: 12-30-2021 End: 66-80-4777Auwdqzl encounter Rolando RUBIO [phone]-VathlBlanchard Valley Health System [facility] Hospitalard Start: 07-13-2021 End: 08-18-4994Rzarlowouc hospital visit by CAITLYN Buchanan RD Work Phone: mwhz Diet and NutritionComment on above:ArrivedStart: 07-09-2021 End: 81-36-9197Ufkgliehgj hospital visit by Gabriela Diabetes Education Work Phone: mWHZ Diabetic EducationStart: 07-02-2021 End: 81-23-2545Pnproykqky hospital visit by physicianBandar Diabetes Education Work Phone: mWHZ Diabetic EducationStart: 05-21-2021 End: 26-00-6351Titvwbqapp hospital visit by physicianKrysten [facility] RadiologyComment on above:SOB (shortness of breath); Obstructive sleep apnea (adult) (pediatric); Moderate persistent asthma without complicationStart: 05-21-2021 End: 30-74-3925Uzfsgtygvt [facility] Pulmonary Function Rm MWHZ PFTComment on above:SOB (shortness of breath); Obstructive sleep apnea syndrome; Moderate persistent asthma without complication; Tobacco abuseStart: 03-17-2020 End: 23-46-3873Csglediiyg hospital visit by Swapna Malik Work Phone: mZ EndoscopyStart: 03-17-2020 End: 80-96-8640Cccigrtxxp hospital visit by adams Covid19 Pat Screening ScheduleMMEDISYS HEALTH NETWORK PRE ADMITComment on above:ArrivedStart: 02-19-2020 End: 06-51-2214Aicobzuvle hospital visit by physicianadams Ultras[facility] UltrasoundComment on above:Hypertrophy of uterus; Right lower quadrant painStart: 02-07-2020 End: 71-90-9594Wucmzqvnba hospital visit by physicianadams Cat [facility] CT ScanComment on above:RLQ abdominal painStart: 09-07-2019 End: 91-66-9953Wicdjssqsz hospital visit by physicianadams Pulmonary Function Rm MWHZ PFTComment on above:SOB (shortness of breath)Start: 09-06-2019 End: 30-16-1888Audjbexrow hospital visit by physicianadams [facility] 1MWHZ LaboratoryComment on above:Syncope and collapse; Pre-operative clearance; Essential hypertension; Hyperlipidemia, unspecified hyperlipidemia type; Vitamin D deficiency; SOB (shortness of breath); Elevated blood sugarSyncope and collapse; Pre-operative clearance; Essential hypertension; Hyperlipidemia, unspecified hyperlipidemia type; Vitamin D deficiency Procedures DateProcedureProcedure DetailPerforming ClinicianStart: 91-40-7665Pvgzqyixhmhx polypectomyMuhammavanesa Marjan Start: 85-85-3148Sftlw hip unilateral with pelvis 2-3 viewsTammy Nigel [employer] - PHOTO OFFSET PRINTER Work Phone: Start: 22-17-5771Gbmcyoxybnkhg metabolic panelTammy Nigel [employer] - PH[employer] OFFSET PRINTER Work Phone: Start: 75-48-5192Hubjn panelTammy Nigel [employer] - PHOTO OFFSET PRINTER Work Phone: Start: 15-81-6414Hwzjw albumin quantitativeTammy Nigel [employer] - PHOTO OFFSET PRINTER Work Phone: Start: 71-46-1781Uii-scan xtr veins complete bilateral studyCarmen Haley DO Work Phone: Start: 10-19-2022 End: 96-59-3381Ohdae spine cervical 4 or 5 Felipe Schwartz MD Work Phone: Start: 79-17-5446Zhwr bld gluc mntr dev cleared fda spec home useDemetra Cruz MD Work Phone: Start: 99-83-3401Sett bld gluc mntr dev cleared fda spec home useDemetra Cruz MD Work Phone: Start: 45-92-9718Lygxrjmsws exam chest single view Demetra Cruz MD Work Phone: Start: 13-39-1871Yfnbw of ethanolDemetra Cruz MD Work Phone: Start: 98-02-0149Bovzowvdhmiqe metabolic panelDemetra Cruz MD Work Phone: Start: 89-87-1986Zst routine ecg w/least 12 lds w/i&r Demetra Cruz MD Work Phone: Start: 16-99-8043Onobrgox kinase totalMulu Dean [employer] SI[employer] - PHOTO OFFSET PRINTER Work Phone: Start: 87-76-7897Xdehkznahss Panel (PCR)DO Joo Ramos Work Phone: Start: 21-79-1439Bwygu chest X-rayStart: 05-21-2021 Radiologic exam chest 2 viewsMulu Dean [employer] SI[employer]ER - PHOTO OFFSET PRINTER Work Phone: Start: 75-80-0112Oxxcxqubp therapyEric P Helena Work Phone: Start: 71-63-4396ERIJJ-19Luis E Jo Work Phone: Start: 49-42-2232DdaxjntlpttYlq WillardStart: 81-75-5145NhyxnquaypzTkoos BROWN Start: 97-26-6289Ko pelvic nonobstetric real-time image completeMulu Dean Work Phone: Start: 90-60-0734Da abdomen & pelvis w/contrast materialMulu Dean Work Phone: Start: 16-81-7578Sytnv of urea nitrogen quantitative Casadiaz Minor Work Phone: Start: 15-95-7613TUAQCMYKD TX INTERMITTENTBilly Back Work Phone: start: 78-71-5082Hrgbdjiylj exam chest 2 viewsGreg S Vigesaa Work Phone: Start: 87-35-069858 hydroxy includes fractions if performedGreg S Vigesaa Work Phone: Start: 83-92-3624Wusxh of magnesiumGreg S Vigesaa Work Phone: Start: 26-13-0942Nhdad of thyroid stimulating hormone tshGreg S Vigesaa Work Phone: Start: 50-48-3125Uycwx count complete auto&auto difrntl wbcGreg S Vigesaa Work Phone: Start: 79-11-7900Wzbhuqajpymaa metabolic panelGreg S Vigesaa Work Phone: Start: 84-39-8383Ilshapeceq glycosylated n4zIxro S [employer] Work Phone: Start: 66-86-5951Gczzi panelGreg S [employer] Work Phone: Start: 13-46-0965RFWRFMC FASTING?Joselito S [employer] Work Phone: Arthroplasty of kneeKaren Sudha Eye/lens implant bilatParish RUBIO L foot bunion/reconstructionParish RUBIO Plan of Treatment DateCare ActivityDetailAuthorStart: 14-16-3958BYE VACCINE (1 - 1-dose 75+ series)RSV VACCINE (1 - 1-dose 75+ series)[facility] [employer] [facility]tart: 04-10-2030 DTaP/Tdap/Td vaccine (3 - Td or Tdap)DTaP/Tdap/Td vaccine (3 - Td or Tdap)[facility] HamiltonStart: 40-25-1629Mlpcusj vaccinationTETANUSAfillmore community medical center [employer] [facility] Hospitaltart: 50-44-4360Detefawib for malignant neoplasm of colonKettering Health HamiltonStart: 11-16-2027 Pneumococcal 0-64 years Vaccine (2 of 2 - PPSV23)Pneumococcal 0-64 years Vaccine (2 of 2 - PPSV23)[facility] HamiltonStart: 11-07-2024 End: 39-44-8815U71/folate tuubwR36 & FOLATE Lab Routine Gastroesophageal reflux disease, unspecified whether esophagitis present Morbid obesity with BMI of 50.0-59.9, adult BRENDA (obstructive sleep apnea) Type 2 diabetes mellitus without complication, without long-term current use of insulin Expected: 11/07/2024, Expires: 11/07/2025[facility] [employer] [facility]-Ann ArborComment on above:Expected: 11/07/2024, Expires: 11/07/2025Start: 11-07-2024 End: 02-99-3141Bzslt metabolic 2000 panel - Serum or PlasmaBASIC METABOLIC PANEL Lab Routine Gastroesophageal reflux disease, unspecified whether esophagitis p resent Morbid obesity with BMI of 50.0-59.9, adult BRENDA (obstructive sleep apnea) Type 2 diabetes mellitus without complication, without long-term current use of insulin Expected: 11/07/2024, Expires:11/07/2025[facility] HospitalComment on above:Expected: 11/07/2024, Expires: 11/07/2025Start: 11-07-2024 End: 64-98-6936CVW,PLATELETSCBC,PLATELETS Lab Routine Gastroesophageal reflux disease, unspecified whether esophagitis present Morbid obesity with BMI of 50.0-59.9, adult BRENDA (obstructive sleep apnea) Type 2 diabetes mellitus without complication, without long-term current use of insulin Expected: 11/07/2024, Expires: 11/07/2025[facility] HospitalComment on above:Expected: 11/07/2024, Expires: 11/07/2025Start: 11-07-2024 End: 13-30-3664TIEJUUYLVL UPPER ENDOSCOPYDIAGNOSTIC UPPER ENDOSCOPY GI/Bronch Routine Gastroesophageal reflux disease, unspecified whether esophagitis present Expected: 11/07/2024, Expires: 11/07/2025[facility] HospitalComment on above: Expected: 11/07/2024, Expires: 11/07/2025Start: 11-07-2024 End: 10-78-7117Ibkxjlva [Mass/volume] in Serum or PlasmaFERRITIN Lab Routine Gastroesophageal reflux disease, unspecified whether esophagitis present Morbid obesity with BMI of 50.0-59.9, adult BRENDA (obstructive sleep apnea) Type 2 diabetes mellitus without complication, without long-term current use of insulin Expected: 11/07/2024, Expires: 11/07/2025[facility] HospitalComment on above: Expected: 11/07/2024, Expires: 11/07/2025Start: 11-07-2024 End: 77-06-9327Egrklmwbqe A1c/Hemoglobin.total in BloodHEMOGLOBIN A1C Lab Routine Gastroesophageal reflux disease, unspecified whether esophagitis present Morbid obesity with BMI of 50.0-59.9, adult BRENDA (obstructive sleep apnea) Type 2 diabetes mellitus without complication, without long-term current use of insulin Expected: 11/07/2024, Expires: 11/07/2025[facility] HospitalComment on above:Expected: 11/07/2024, Expires: 11/07/2025Start: 11-07-2024 End: 76-33-0635Jluzqrz function 2000 panel - Serum or PlasmaHEPATIC FUNCTION PANEL Lab Routine Gastroesophageal reflux disease, unspecified whether esophagitispresent Morbid obesity with BMI of 50.0-59.9, adult BRENDA (obstructive sleep apnea) Type 2 diabetes mellitus without complication, without long-term current use of insulin Expected: 11/07/2024, Expires: 11/07/2025[facility] HospitalComment on above:Expected: 11/07/2024, Expires: 11/07/2025Start: 11-07-2024 End: 91-65-6072HVJA/IRON BINDING/TRANSFERRINIRON/IRON BINDING/TRANSFERRIN Lab Routine Gastroesophageal reflux disease, unspecified whether esophagitis present Morbid obesity with BMI of 50.0-59.9, adult BRENDA (obstructive sleep apnea) Type 2 diabetes mellitus without complication, without long-term current use of insulin Expected: 11/07/2024, Expires: 11/07/2025[facility] HospitalComment on above:Expected: 11/07/2024, Expires: 11/07/2025Start: 11-07-2024 End: 56-22-9275DEHUM PANEL W CALCULATED LDLLIPID PANEL W CALCULATED LDL Lab Routine Gastroesophageal reflux disease, unspecified whether esophagitis present Morbid obesity with BMI of 50.0-59.9, adult BRENDA (obstructive sleep apnea) Type 2 diabetes mellitus without complication, without long-term current use of insulin Expected: 11/07/2024, Expires: 11/07/2025[facility] HospitalComment on above:Expected: 11/07/2024, Expires: 11/07/2025Start: 11-07-2024 End: 43-38-0629Estfogxti [Mass/volume] in Serum or PlasmaMAGNESIUM Lab Routine Gastroesophageal reflux disease, unspecified whether esophagitis present Morbid obesity with BMI of 50.0-59.9, adult BRENDA (obstructive sleep apnea) Type 2 diabetes mellitus without complication, without long-term current use of insulin Expected: 11/07/2024, Expires: 11/07/2025[facility] HospitalComment on above: Expected: 11/07/2024, Expires: 11/07/2025Start: 11-07-2024 End: 40-89-7844IZAQZURDX, INORGANICPHOSPHATE, INORGANIC Lab Routine Gastroesophageal reflux disease, unspecified whether esophagitis present Morbid obesity with BMI of 50.0-59.9, adult BRENDA (obstructive sleep apnea) Type 2 diabetes mellitus without complication, without long-term current use of insulin Expected: 11/07/2024, Expires: 11/07/2025[facility] HospitalComment on above: Expected: 11/07/2024, Expires: 11/07/2025Start: 11-07-2024 End: 36-19-4282HZTSJCT-INRPROTIME-INR Lab Routine Gastroesophageal reflux disease, unspecified whether esophagitis present Morbid obesity with BMI of 50.0-59.9, adult RBENDA (obstructive sleep apnea) Type 2 diabetes mellitus without complication, without long-term current use of insulin Expected: 11/07/2024, Expires: 11/07/2025[facility] HospitalComment on above:Expected: 11/07/2024, Expires: 11/07/2025Start: 11-07-2024 End: 74-35-8745ZAN INTACTPTH INTACT Lab Routine Gastroesophageal reflux disease, unspecified whether esophagitis present Morbid obesity with BMI of 50.0-59.9, adult BRENDA (obstructive sleep apnea) Type 2 diabetes mellitus without complication, without long-term current use of insulin Expected: 11/07/2024, Expires: 11/07/2025[facility] HospitalComment on above:Expected: 11/07/2024, Expires: 11/07/2025Start: 11-07-2024 End: 47-15-0364SVH W/FT4 REFLEXTSH W/FT4 REFLEX Lab Routine Gastroesophageal reflux disease, unspecified whether esophagitis present Morbid obesity with BMI of 50.0-59.9, adult BRENDA (obstructive sleep apnea) Type 2 diabetes mellitus without complication, without long-term current use of insulin Expected: 11/07/2024, Expires: 11/07/2025[facility] HospitalComment on above:Expected: 11/07/2024, Expires: 11/07/2025Start: 11-07-2024 End: 42-80-6600PMIWLSQ D (25-HYDROXY,TOTAL)VITAMIN D (25-HYDROXY,TOTAL) Lab Routine Gastroesophageal reflux disease, unspecified whether esophagitis present Morbid obesity with BMI of 50.0-59.9, adult BRENDA (obstructive sleep apnea) Type 2 diabetes mellitus without complication, without long-term current use of insulin Expected: 11/07/2024, Expires: 11/07/2025[facility] HospitalComment on above:Expected: 11/07/2024, Expires: 11/07/2025Start: 98-06-1460HOfQ/Tdap/Td vaccine (2 - Td)DTaP/Tdap/Td vaccine (2 - Td)[place], [place]: 14-80-4606JEBZU-19 VACCINE ()COVID-19 VACCINE ()[facility]: 07-21-2023 End: 43-70-0700Zbaqpph encounter iyndmnyxh45/18/2024 10:30 AM EST Appointment [facility] [address] [place] [address] Arlene Dickens [facility]-Lumbar DDD-Eda GanmelissaMANAT Physical TherapyComment on above:C- Lumbar DDD-Eda GantzStart: 07-19-2023 End: 18-68-6013Thfcgib encounter ogngafpub78/16/2024 10:30 AM EST Appointment [facility] [address] [place] [address] Ana Hester, PT C-Lumbar DDD-Eda GantzMANAT Physical TherapyComment on above:UHC-Lumbar DDD-Eda GantzStart: 07-14-2023 End: 52-14-7125Qxflrpu encounter eqjhtoatm47/11/2024 10:30 AM EST Appointment [facility] [address] [place] [address] Arlene Dickens [facility]-Lumbar DDD-Eda GantzMWHYamini Physical TherapyComment on above:C- Lumbar DDD-Eda GantzStart: 07-11-2023 End: 34-57-4882Rcpqhpd encounter /08/2024 10:30 AM EST Appointment [facility] Physical Therapy [address] [place] [address] Ana Hester, PT [facility]-Lumbar DDD-Eda Bryson Physical TherapyComment on above:UHC-[place]umbar DDD-Eda ChristiansonStart: 12-15-2022 End: 78-86-8791Igzkfhw encounter ovdyzmutw00/14/2023 Office Visit Gastroenterology Racheal Braden, CAP SIZER - PHOTO OFFSET PRINTER [address] [id number] [facility] GastroenterologyStart: 35-12-6145Mpiwxdvujmu Syncytial Virus (RSV) or age 60 yrs+ (1 - 1-dose 60+ series)Respiratory Syncytial Virus (RSV) or age 60 yrs+ (1 - 1-dose 60+ series)[facility]ITALStart: 10-26-2022 End: 40-98-2890Bgfgwra encounter kqvorgccf03/25/2023 Office Visit Cardiology Joselito Hsu MD [address] [place] [address] [facility] Cardiology SpecialistStart: 89-25-0236LedckeyssKnox Community Hospital CenterStart: 69-02-7532Iwkfnetspdbto metabolic 2000 panel - Serum or PlasmaKnox Community Hospital CenterStart: 03-18-1564JhkbwphknKnox Community Hospital CenterStart: 52-78-9565MivhhtvmuKnox Community Hospital CenterStart: 60-98-9122PrwjzhaalKnox Community Hospital CenterStart: 77-12-0787Leuwhwig to Social ServicesKnox Community Hospital CenterStart: 09-10-2022 End: 29-30-1439CiskghxfkKnox Community Hospital CenterStart: 76-79-4346Pahtlcrh admissionKnox Community Hospital CenterStart: 83-41-9976NfpsqmvkwKnox Community Hospital CenterStart: 09-08-2021 End: 37-45-5232Jzxixyn encounter aziyamcus93/08/2022 Appointment [facility] Diabetic EducationStart: 07-13-2021 End: 03-08-5298Rmwfdoh encounter mydjtbwcy29/10/2022 Appointment IP Unit Case Parish, RD, LD [facility] Diet and NutritionStart: 07-09-2021 End: 57-49-7317Xnhcqqy encounter mkdgvsvuo97/06/2022 Appointment Diabetes ServicesMWHZ Diabetic EducationStart: 07-06-2021 End: 31-53-4939Bcfdebg encounter nzrubnyox85/03/2022 Appointment IP Unit Case Parish, RD, LD [facility] Diet and NutritionStart: 04-10-2021 Pneumococcal 0-64 years Vaccine (2 - PCV)Pneumococcal 0-64 years Vaccine (2 - PCV)[facility] VER[facility]ARA [facility]ITALStart: 67-46-7800Nyyvawifvjem vaccination PNEUMOCOCCAL VACCINE SERIES (2 of 2 - PCV)[facility]: 04-07-2021 COVID-19 Vaccine (3 - Booster for Pfizer series)COVID-19 Vaccine (3 - Booster for Pfizer series)[facility]Start: 52-70-2383Nzyxyvvfka measurementCreatinine monitoringKettering Health HamiltonStart: 88-87-5969Ifpndl cancer screenBreast cancer screen [facility], [place]Start: 09-87-0055Iwbxbqunn for malignant neoplasm of breast Breast cancer screenKettering Health HamiltonStart: 84-26-5962V6S test (Diabetic or Prediabetic)A1C test (Diabetic or Prediabetic)[facility], [place]Start: 77-94-9490Xagulzilpv monitoringCreatinine [facility], [place]Start: 72-78-2762BlW6w (Bld) [Mass fraction]A1C test (Diabetic or Prediabetic)[facility], [place]Start: 78-42-8129Plcicytpdd A1c laohjvdurmgW9R test (Diabetic or Prediabetic)[facility] HamiltonStart: 33-57-2182Bjdfr panelKettering Health HamiltonStart: 82-98-0642Awcjv screenLipid screenTuscarawas Hospital, [place]Start: 16-55-0188Kbypvylmj monitoringPotassium monitoringKettering Health HamiltonStart: 36-03-5545Xfophsvn Vaccine (2 of 3)Shingles Vaccine (2 of 3)[facility] HamiltonStart: 34-35-7399Cfalxmno vaccine (3 of 3)Shingles vaccine (3 of 3)[facility]ITALStart: 03-31-2020 End: 11-38-8654Wpukac Visit03/31/2020 Office Visit General Surgery Glenn Malik MD [address] [place] [address] [facility] Photofinishing Laboratory Worker - WillardStart: 15-04-3370Sxyhfwngy vaccinationFlu vaccine (#1)[place], [place]Start: 02-28-2020 End: 00-97-5322Bihtdd Visit02/28/2020 Office Visit General Surgery Glenn Malik MD [address] [place] [address] [facility] Photofinishing Laboratory Worker - WillardStart: 46-30-2256Tiadizmto for malignant neoplasm of breastMAMMOGRAM SCREENING DISCUSSIONRiverside Methodist Hospitaltart: 09-07-2019 End: 88-07-8194Qrsxjflczkb16/06/2020 Appointment Pulmonary Function TestingMWHZ PFTStart: 78-20-4748Jtrhgwnieu monitoringCreatinine monitoringMechanicsville, [place]Start: 68-51-5731Pezdaeuit monitoringPotassium [place], [place] Start: 35-94-8094Lwoia cancer screen colonoscopyColon cancer screen colonoscopy [place], [place]Start: 89-79-9257Vpvsalkzj for malignant neoplasm of colon Colon cancer screen colonoscopyMechanicsville, [place]Start: 19-37-5573Ysejossq Vaccine (1 of 2)Shingles Vaccine (1 of 2)[place], [place]Start: 11-16-2007 Screening for malignant neoplasm of colonBON [facility]: 41-62-3367Mwncl panelLIPID SCREENINGRiverside Methodist Hospitaltart: 1992 Screening for malignant neoplasm of cervixKettering Health HamiltonStart: 25-36-7258Wmrrrewm cancer screenCervical cancer screenSouthwest General Health Centerart: 11-16-1983 Screening for malignant neoplasm of cervixKettering Health HamiltonStart: 93-79-8268Bxtcaotei C screeningHepatitis C screenBON [facility]: 36-64-3400JDG screen HIV screenT[facility], [facility]: 71-84-1631QRK screeningCleveland Clinic: 65-12-8387Fkcseetksz ScreenDepression ScreenCleveland Clinic: 13-43-2890Oadhh screenLipid screenTuscarawas Hospital, [facility]: 33-51-6130Dkbjnqhec C screen Hepatitis C screenTuscarawas Hospital, [facility]: 39-42-4917Cmybcmmps C screening [facility] HamiltonCalculated LDL cholesterol levelBarney Children'S Medical Center End: 52-40-2187XXSSHS Lab Routine One Time for 1 Occurrences starting 03/17/2020 until 03/17/2020[facility], MERCYComment on above:One Time for 1 Occurrences starting 03/17/2020 until 03/17/2020CEACEA Lab Routine 03/17/2020 12:00 PM EDT [facility], KYCholesterol.total/Cholesterol in HDL [Mass Ratio] in Serum or PlasmaBarney Children'S Medical Center End: 32-76-3303Pplxrnbnzbtufe completeEchocardiogram complete Echocardiography Routine Hypertension, unspecified type Bilateral leg edema1 Occurrences starting 08/27/2022 until 3BON [employer] Work Phone: comment on above:1 Occurrences starting 08/27/2022 until 08/27/2022EKG 12 LeadEKG 12 Lead ECG Routine Syncope and collapse Pre- operative clearance Essential hypertension Hyperlipidemia, unspecified hyperlipidemia type Vitamin D deficiency 09/06/2019 11:05 AM [facility], MERCYEKLoly 12 LeadEKG 12 Lead ECG STAT 10/14/2022 9:44 PM EDTBON [facility] [employer] Work Phone: End: 89-12-5738Vymf PFT Study With BronchodilatorFull PFT Study With Bronchodilator PFT Routine SOB (shortness of breath) 1 Occurrences starting 12/2019 until 09/07/2019[facility], MERCYComment on above:1 Occurrences starting 09/07/2019 until 09/07/2019 End: 91-98-4115Mjjh PFT Study With BronchodilatorFull PFT Study With Bronchodilator PFT Routine SOB (shortness of breath) Obstructive sleep apnea syn drome Moderate persistent asthma without complication Tobacco abuse 1 Occurrences starting 05/21/2021 until 05/21/2021[facility] Work Phone: comment on above:1 Occurrences starting 05/21/2021 until 05/21/2021Glucose measurement estimated from glycated hemoglobinBarney Children'S Medical CenterH. PYLORI DETECTIONTuscarawas Hospital, [place]Comment on above: Release Upon Ordering for 1 Occurrences starting 03/17/2020Hemoglobin A1c/Hemoglobin.total in [facility] End: 15-22-1627Jxumiypqqt A1c/Hemoglobin.total in BloodBON SAGE MEMORIAL HOSPITALHemosphere Work Phone: comment on above:Once for 1 Occurrences starting 08/10/2023 until 08/10/2023Oxygen therapy [Minimum Data Set]Initiate Oxygen Therapy Protocol Respiratory Care Routine Daily until discontinued starting 03/17/2020[facility] HospitalMERCYComment on above:Daily until discontinued starting 03/17/2020 End: 17-66-0653Veqmdz therapy [Minimum Data Set]Initiate Oxygen Therapy Protocol Respiratory Care STAT One Time for 1 Occurrences starting 10/14/2022 until 3BON [employer] Work Phone: Comment on above:One Time for 1 Occurrences starting 10/14/2022 until 3Patient EducationHeart Failure, Adult (DC)[facility] Work Phone: End: 73-12-8259Usqisie Fasting?BON [employer]CoComment on above:Once for 1 Occurrences starting 08/10/2023 until 4Patient [facility] Work Phone: Surgical PathologySurgical Pathology Lab Routine Release Upon Ordering for 1 Occurrences starting 03/17/2020[facility] [place] Comment on above:Release Upon Ordering for 1 Occurrences starting 03/17/2020 End: 61-64-3260PY NON OB TRANSVAGINALUS NON OB TRANSVAGINAL Imaging Routine Hypertrophy of uterus Right lower quadrant pain 1 Occurrences starting 02/19/2020 [facility]2020[facility] [place]1 Occurrences starting 02/19/2020 until 02/19/2020US NON OB TRANSVAGINALUS NON OB TRANSVAGINAL Imaging Routine Hypertrophy of uterus Right lower quadrant pain 02/19/2020 2:36 PM [facility]- [place], [place] cholesterol measurementBarney Children'S Medical CenterXR Lumbar spine ViewsBarney Children'S Medical Center Immunizations Immunization DateImmunizationNotesCare OjqzmtsuGgnaegvi33-89-5178zznmijkei, seasonal, injectable, preservative free; Translations: [Fluzone TIV PF ]Paris Rust 184-1916Gkskvw-HkmcwMagruder Memorial Hospital 47-07-5362jvsemdlym, injectable, quadrivalent, preservative freeTagregor Rust 712-7235Tnjhrb-RijifMagruder Memorial Hospital 60-45-9919cqidgitku virus vaccine, unspecified formulationLupis SCHWARTZ 591-6010Iybqva-Llyas[address] [place] [address] 71-82-3745HZUS-CoV-2 (COVID-19) mRNAMUL.ORD!r40274Sibrs BROWN 241-9321Fkwntq-Dasmq[address] [place] [address] 55-46-3781CPILZ-19 mRNA, Comirnaty (Pfizer)[facility] 31-37-7611EMOE-CoV-2 mRNA (dyzxanbnohb-tfoc-aebadeg) vaccineLupis SCHWARTZ 504-0652Ajrgzk-DcykkMagruder Memorial Hospital 87-13-9026MWTJ-CoV-2 (COVID-19) mRNA BNT-162b2 Belem SCHWARTZ 738-7157Xfqbzj-OcsknMagruder Memorial Hospital 87-39-0619ovrqsvnuo virus vaccine, unspecified formulationLupis SCHWARTZ 897-7175Qortft-IzskgMagruder Memorial Hospital 72-21-2646WKYT-CoV-2 (COVID-19) mRNA BNT-162b2 Belem SCHWARTZ 746-4664Hrgads-Tlkhe[address] [place] [address] 53-41-7861TCEU-CoV-2 (COVID-19) mRNA BNT-162b2 vaJ Carlos EFREN 114-7882Eopqhp-Wwsvn[address] [place] [address] 75-35-2392xdvhkd vaccine, liveParish RUBIO 968-8862Mpqfvk-Oxaay[address] [place] [address] Doc 10262177-70-4928ssvrqmxrw virus vaccine, unspecified formulationBrian RUBIO 977-2796Gaewhy-Vcrkb[address] [place] [address] [place] 10591739-93-3193zbqbmymosesk polysaccharide vaccine, 23 valentParish RUBIO 018-9201Eogmcj-Jixds[address] [place] [address] [place] 10-975565-08-8313fvchuel toxoid, unspecified formulationParihs RUBIO 346-2081Wiovyo-Dzaop[address] [place] [address] [place] 10-961284-32-9607zkzrdv vaccine, liveSoniaian RUBIO 351-1643Cwxptz-Lvusi[address] [place] [address] [place] 11533301-05-1879krkefrsgc virus vaccine, unspecified formulationParish RUBIO 153-1060Wbzykr-Goktg[address] [place] [address] [place] 10532362-34-7137ugdjpjdhc virus vaccine, unspecified formulationSoniaian RUBIO 928-9698Fbmlma-BcimbOhiohealth Grove [facility] Doc 09628803-71-0258quwdwrjwc virus vaccine, unspecified formulationGe[facility]06-15-2018pneumococcal polysaccharide vaccine, 23 Manuel EFREN 463-4745Fqlckm-Emgcf[address] [place] [address] 12-51-6438zzrzjkt toxoid, reduced diphtheria toxoid, and acellular pertussis vaccine, adsorbedVicmello SCHWARTZ [phone]-FxzvmHarrison [facility] Doc Payers DatePayer CategoryPayerPolicy [id number] (Managed Care)[employer] MEDICAID COMMUNITY PLAN [id number] 2024Medicaid [id number] Health [id number] Qgow-[id number]wb Health [place] [place] [phone] [address] [place], [place] [address]kfjwzjymm [id number].3.237043.04187-49-6331 Private Health [id number] 1.2.840.830867.1.13.239.2.7.3.858881.315 90-99-5029Jkjhzjk Health [id number] 1.2.840.216914.1.13.239.2.7.3.747[id number] 2.0.1.638231.3.579.[id number] 2.0.1.249028.3.579.[id number] 2.0.1.581526.3.579.2.[id number] 2.16.840.1.939807.3.579.2.21085-80-4316Kqmpgcc05356038 2.16.840.1.314816.3.579.2.58993-99-3947Lncgdej46043030 2.16.840.1.648029.3.579.2.48882-47-1250Lpceqau69271391 2.16.840.1.307240.3.579.2.35928-38-5050Mvxlciw33057161 2.16.840.1.069897.3.579.2.78054-39-8814Trshdya78306320 2.16.840.1.531399.3.579.2.27382-64-8026Gbyspzi48002486 2.16.840.1.234752.3.579.2.36335-09-1303Yocdpok98823063 2.16.840.1.286723.3.579.2.35837-06-4030Dxmrjrm04149297 2.16.840.1.629615.3.579.2.67730-96-0465Nrldqpx84715604 2.16.840.1.828084.3.579.2.69606-47-8877Qfwhogz05961218 2.16.840.1.858457.3.579.2.51714-97-3412Buaehbf70658536 2.16.840.1.379103.3.579.2.06415-49-4424Orpdadf98685844 2.16.840.1.623009.3.579.2.66391-76-0998Kwnjxhu97885578 2.16.840.1.750147.3.579.2.32799-73-0449Fpzafsv70818149 2.16.840.1.671019.3.579.2.37664-76-3591Rckyvcu09985606 2.16.840.1.107614.3.579.2.83115-92-2861Lmjdaco23865938 2.16.840.1.693895.3.579.2.16806-62-3017Dcigbqm25882507 2.16.840.1.058460.3.579.2.84033-69-3226Nbhafwm73784926 2.16.840.1.475809.3.579.2.59505-97-4263Hsojomk55067866 2.16.840.1.246452.3.579.2.33370-49-4726Nqlotxw87024538 2.16.840.1.943741.3.579.2.41131-32-6290Higeyxw28695426 2.16.840.1.512994.3.579.2.61684-45-0212Mhaooqe38089517 2.16.840.1.474625.3.579.2.06480-40-6058Winxvzo40375789 2.16.840.1.762835.3.579.2.96367-21-9451Dnwgyxt37391351 2.16.840.1.229615.3.579.2.07360-98-6781Owvwsfg58376708 2.16.840.1.782448.3.579.2.19441-94-2628Dhhwsza98150291 2.16.840.1.836709.3.579.2.07339-38-7107Ddfgrsq43979639 2.16.840.1.655770.3.579.2.89196-59-2871Vhdznzw60979210 2.16.840.1.514731.3.579.2.94135-93-2013Myvlbym92983528 2.16.840.1.904670.3.579.2.29174-09-2565Iamtaoo90025567 2.16.840.1.370669.3.579.2.15559-60-2081Mcvfeqv27306880 2.16.840.1.684583.3.579.2.08064-33-2409Ropgpkt68250334 2.16.840.1.249117.3.579.2.20747-56-2473Icxwsoq98589969 2.16.840.1.759786.3.579.2.62927-37-3418Dwggdku89425115 2.16.840.1.964688.3.579.2.67496-94-3600Fppwkva02394034 2.16.840.1.294213.3.579.2.55573-38-1577Ovozhxi35947079 2.16.840.1.499988.3.579.2.64922-48-0234Ypgtmnc98028830 2.16.840.1.529730.3.579.2.46383-45-9060Linpkae76853099 2.16.840.1.161613.3.579.2.45485-30-7288Qzohzaa71483463 2.16.840.1.110450.3.579.2.97200-13-5198Nmybhyp68959497 2.16.840.1.624367.3.579.2.36538-47-5097Ujexbfr49291908 2.16.840.1.407803.3.579.2.64930-35-5142Cpgwzct90565750 2.16.840.1.676833.3.579.2.87300-90-7351Poatzqx04222863 2.16.840.1.921099.3.579.2.59000-67-4776Umrxgqw89678302 2.16.840.1.614367.3.579.2.07857-46-7110Frrpozz51570297 2.16.840.1.693976.3.579.2.24335-13-5096Viufnbc01018331 2.16.840.1.043018.3.579.2.53455-48-3415Jfyzojs43214222 2.16.840.1.657216.3.579.2.77317-50-1646Fweaieh77740289 2.16.840.1.116452.3.579.2.17685-99-1747Sfutajb65111535 2.16.840.1.469302.3.579.2.74591-79-7766Cupjqqw886928501 2.16.840.1.890357.3.579.2.61361-38-7339Yvpfhag306175498 2.16.840.1.111505.3.579.2.22394-04-5574Xznnmpj853871056 2.16.840.1.529624.3.579.2.45392-73-9037Tnwwuwb738633338 2.16.840.1.269264.3.579.2.27713-34-8379Umjduzg483608619 2.16.840.1.785756.3.579.2.18416-95-9578Gsyprdr440340478 2.16.840.1.231473.3.579.2.73047-50-3931Ikenhqe93188115 2.16.840.1.959767.3.579.2.59003-21-8658Jnopphf39495232 2.16.840.1.831121.3.579.2.71441-18-4969Ixnycic74885920 2.16.840.1.560985.3.579.2.12698-88-4943Jwuaomb00881450 2.16.840.1.203863.3.579.2.87720-06-6631Jnwltqr08679821 2..840.1.060020.3.579.2.06190-19-9675Jmdlpwa30053765 2.16.840.1.388780.3.579.2.225Zwmdtqf16685042 2.16.840.1.016660.3.579.2.531 Social History DateTypeDetailFacilityStart: 09-06-2019 End: 35-04-9813Frmewlt smoking status NHISCurrent every day smokerSum[facility]: 92-77-3856Kkholbf of tobacco useCigarette SmokerSumma Health [facility]: 09-06-2019 End: 59-70-2442Atemrbxkpx smoked current (pack per day) - ReportedSumma Health [facility] Campus: 09-06-2019 End: 50-09-0349Hkmleqi intakeCurrent drinker of alcohol (finding)[facility]: 92-95-9537Ulbkkzu Comment5 cigarettes/daySumma Health [facility] Campus: 97-69-4733Qylrekr Commentoccas.[facility]: 58-95-6913Xeu Assigned At BirthNot on fileSumma Health [facility] Campus: 09-06-2019 End: 83-93-6135Hfpnvhu use and exposureNever usedSumma Health [facility] Campus: 10-04-2022 End: 16-49-6065Bbsxrloa to SARS-CoV-2 (event)Not sureSumma Health [facility] Campus: 12-30-2021 End: 36-72-9959Oqdffex smoking statusHeavy tobacco smoker (finding)[facility] Tobacco smoking statusNeverOhiohealth [facility] Start: 10-14-2022 End: 77-08-0655Duh Assigned At BirthF[facility]alMemorial [facility] Start: 09-10-2022 End: 04-74-2914Ilkaydj smoking status NHISSmoker (finding)[facility] 14-52-7480[facility]: 66-56-1143Wgtvymo SDOH Alcohol Aiwrisfjh0ABP [employer] Work Phone: start: 14-39-0025Bcwaxge SDOH Alcohol Std Nbondn4XDF [employer] Work Phone: start: 28-88-8422Muvlvmz SDOH Alcohol Hdbfb7ZVT [employer] Work Phone: start: 73-04-7681Ujtwfal Commentpatient had 2 bottles of rum todayBON [employer] Work Phone: How often to you have a drink containing alcohol? Monthly or lessBON FlowCoHow many standard drinks containing alcohol do you have on a typical day?10 or moreBON FlowCoHow often do you have 6 or more drinks on 1 occasion?WeeklyBON FlowCoStart: 86-03-5072Uqhjcgo CommentoccasionAbrazo [facility] Hospital Infertart: 11-08-2016 End: 46-27-8011QutDolvmm (finding)[facility] [employer] [facility] [place] [facility] Procedure CodeEquipment CodeEquipment Original TextEquipment IdentifierDates Cement Smartghv W/ Gent 40gr Must Order [id number]: 88-21-9176Afldoa Smartghv W/ Gent 40gr Must Order [id number]_impStart: 06-03-9817Ubyjkh Smartghv W/ Gent 40gr Must Order [id number]: 95-93-0764Xwby Knee Patella Asym X3 [id number]_impStart: 25-80-0832Aayvnyp, See Instructions, 300 EA, 3, Use to check BS TID and PRN dx E11.9, [facility],Supply, 170, cm, 11/24/21 8:31:00 EST, Height/Length Dosing, 157.8, kg, 05/27/21 8:31:00 EST, Weight DosingStart: 66-25-9471Hvcr Strips, See Instructions, 300 EA, 3, Use to test BS TID and PRN dx E11.9, [facility], Supply, 170, cm, 05/27/21 8:31:00 EST, Height/Length Dosing, 157.8, kg, 05/27/21 8:31:00 EST, Weight DosingStart: 07-27-2182Cgwbwvx, See Instructions, 100 EA, 3, Use to check BS daily dx E11.9, [facility] #[id number], Supply, 163,cm, 12/30/21 11:09:00 EDT, Height/Length Dosing, 154, kg, 12/30/21 11:09:00 EDT, Weight DosingStart: 52-22-4934Nkin Strips, See Instructions, 100 EA, 3, Use to test BS daily dx E11.9, [facility] #[id number], Supply, 163, cm, 12/30/21 11:09:00 EDT, Height/Length Dosing, 154, kg, 12/30/21 11:09:00 EDT, Weight DosingStart: 29-86-2615Epxymqa, See Instructions, 100 EA, 3, Use to check BS daily dx E11.9, [facility] #86078, Supply, 163,cm, 12/30/21 11:09:00 EDT, Height/Length Dosing, 154, kg, 12/30/21 11:09:00 EDT, Weight DosingStart: 25-95-7391Oeav Strips, See Instructions, 100 EA, 3, Use to test BS daily dx E11.9, [facility] #51760, Supply, 163, cm, 12/30/21 11:09:00 EDT, Height/Length Dosing, 154, kg, 12/30/21 11:09:00 EDT, Weight DosingStart: 95-76-3115Losgvtx, See Instructions, 100 EA, 3, Use to check BS daily dx E11.9, [facility] #70489, Supply, 163,cm, 12/30/21 11:09:00 EDT, Height/Length Dosing, 154, kg, 12/30/21 11:09:00 EDT, Weight DosingStart: 31-10-9313Gfxm Strips, See Instructions, 100 EA, 3, Use to test BS daily dx E11.9, [facility] #64009, Supply, 163, cm, 12/30/21 11:09:00 EDT, Height/Length Dosing, 154, kg, 12/30/21 11:09:00 EDT, Weight DosingStart: 98-63-0292Kjcjssn, See Instructions, 100 EA, 3, Use to check BS daily dx E11.9, [facility] #18594, Supply, 163,cm, 12/30/21 11:09:00 EDT, Height/Length Dosing, 154, kg, 12/30/21 11:09:00 EDT, Weight DosingStart: 49-39-1669Pgrx Strips, See Instructions, 100 EA, 3, Use to test BS daily dx E11.9, [facility] #76380, Supply, 163, cm, 12/30/21 11:09:00 EDT, Height/Length Dosing, 154, kg, 12/30/21 11:09:00 EDT, Weight DosingStart: 96-38-9160Ovoqfii, See Instructions, 100 EA, 3, Use to check BS daily dx E11.9, [facility] #01111, Supply, 163,cm, 12/30/21 11:09:00 EDT, Height/Length Dosing, 154, kg, 12/30/21 11:09:00 EDT, Weight DosingStart: 96-59-7135Ofqz Strips, See Instructions, 100 EA, 3, Use to test BS daily dx E11.9, [facility] #28833, Supply, 163, cm, 12/30/21 11:09:00 EDT, Height/Length Dosing, 154, kg, 12/30/21 11:09:00 EDT, Weight DosingStart: 75-48-6231Xakzodu, See Instructions, 100 EA, 3, Use to check BS daily dx E11.9, [facility] #61759, Supply, 163,cm, 12/30/21 11:09:00 EDT, Height/Length Dosing, 154, kg, 12/30/21 11:09:00 EDT, Weight DosingStart: 84-55-4348Weuf Strips, See Instructions, 100 EA, 3, Use to test BS daily dx E11.9, [facility] #79155, Supply, 163, cm, 12/30/21 11:09:00 EDT, Height/Length Dosing, 154, kg, 12/30/21 11:09:00 EDT, Weight DosingStart: 00-33-1822Eegmffp, See Instructions, 100 EA, 3, Use to check BS daily dx E11.9, [facility] #91872, Supply, 163,cm, 12/30/21 11:09:00 EDT, Height/Length Dosing, 154, kg, 12/30/21 11:09:00 EDT, Weight DosingStart: 23-19-1332Bdng Strips, See Instructions, 100 EA, 3, Use to test BS daily dx E11.9, [facility] #88801, Supply, 163, cm, 12/30/21 11:09:00 EDT, Height/Length Dosing, 154, kg, 12/30/21 11:09:00 EDT, Weight DosingStart: 91-87-5248Nxjvelk, See Instructions, 100 EA, 3, Use to check BS daily dx E11.9, [facility] #39259, Supply, 163,cm, 12/30/21 11:09:00 EDT, Height/Length Dosing, 154, kg, 12/30/21 11:09:00 EDT, Weight DosingStart: 39-23-6711Krbx Strips, See Instructions, 100 EA, 3, Use to test BS daily dx E11.9, [facility] #87915, Supply, 163, cm, 12/30/21 11:09:00 EDT, Height/Length Dosing, 154, kg, 12/30/21 11:09:00 EDT, Weight DosingStart: 19-57-0201Hufsnfz, See Instructions, 100 EA, 3, Use to check BS daily dx E11.9, [facility] #91621, Supply, 163,cm, 12/30/21 11:09:00 EDT, Height/Length Dosing, 154, kg, 12/30/21 11:09:00 EDT, Weight DosingStart: 95-25-5976Tcvd Strips, See Instructions, 100 EA, 3, Use to test BS daily dx E11.9, [facility] #01388, Supply, 163, cm, 12/30/21 11:09:00 EDT, Height/Length Dosing, 154, kg, 12/30/21 11:09:00 EDT, Weight DosingStart: 64-72-1683Vjefnpb, See Instructions, 100 EA, 3, Use to check BS daily dx E11.9, [facility] #08811, Supply, 163,cm, 12/30/21 11:09:00 EDT, Height/Length Dosing, 154, kg, 12/30/21 11:09:00 EDT, Weight DosingStart: 31-27-0062Dwuw Strips, See Instructions, 100 EA, 3, Use to test BS daily dx E11.9, [facility] #83202, Supply, 163, cm, 12/30/21 11:09:00 EDT, Height/Length Dosing, 154, kg, 12/30/21 11:09:00 EDT, Weight DosingStart: 87-91-8323Voxadvr, See Instructions, 100 EA, 3, Use to check BS daily dx E11.9, [facility] #53738, Supply, 163,cm, 12/30/21 11:09:00 EDT, Height/Length Dosing, 154, kg, 12/30/21 11:09:00 EDT, Weight DosingStart: 12-27-5696Kbhz Strips, See Instructions, 100 EA, 3, Use to test BS daily dx E11.9, [facility] #17453, Supply, 163, cm, 12/30/21 11:09:00 EDT, Height/Length Dosing, 154, kg, 12/30/21 11:09:00 EDT, Weight DosingStart: 25-74-8289Kcmzvzz, See Instructions, 100 EA, 3, Use to check BS daily dx E11.9, [facility] #70731, Supply, 163,cm, 12/30/21 11:09:00 EDT, Height/Length Dosing, 154, kg, 12/30/21 11:09:00 EDT, Weight DosingStart: 51-04-8744Utaw Strips, See Instructions, 100 EA, 3, Use to test BS daily dx E11.9, [facility] #73704, Supply, 163, cm, 12/30/21 11:09:00 EDT, Height/Length Dosing, 154, kg, 12/30/21 11:09:00 EDT, Weight DosingStart: 61-55-8860Uilejjy, See Instructions, 100 EA, 3, Use to check BS daily dx E11.9, [facility] #42669, Supply, 163,cm, 12/30/21 11:09:00 EDT, Height/Length Dosing, 154, kg, 12/30/21 11:09:00 EDT, Weight DosingStart: 64-95-1386Oxhc Strips, See Instructions, 100 EA, 3, Use to test BS daily dx E11.9, [facility] #02099, Supply, 163, cm, 12/30/21 11:09:00 EDT, Height/Length Dosing, 154, kg, 12/30/21 11:09:00 EDT, Weight DosingStart: 27-90-2160Shxndri, See Instructions, 100 EA, 3, Use to check BS daily dx E11.9, [facility] #72876, Supply, 163,cm, 12/30/21 11:09:00 EDT, Height/Length Dosing, 154, kg, 12/30/21 11:09:00 EDT, Weight DosingStart: 09-57-7320Gnzp Strips, See Instructions, 100 EA, 3, Use to test BS daily dx E11.9, [facility] #03108, Supply, 163, cm, 12/30/21 11:09:00 EDT, Height/Length Dosing, 154, kg, 12/30/21 11:09:00 EDT, Weight DosingStart: 98-31-7264Lrytiee, See Instructions, 100 EA, 3, Use to check BS daily dx E11.9, [facility] #54627, Supply, 163,cm, 12/30/21 11:09:00 EDT, Height/Length Dosing, 154, kg, 12/30/21 11:09:00 EDT, Weight DosingStart: 37-11-6313Gpue Strips, See Instructions, 100 EA, 3, Use to test BS daily, [facility] #26733, Supply, 167.5, cm,10/18/22 13:30:00 EDT, Height/Length Dosing, 147, kg, 10/18/22 13:30:00 EDT, Weight DosingStart: 05-57-9642Xyygmyc, See Instructions, 100 EA, 3, Use to check BS daily dx E11.9, [facility] #06433, Supply, 163,cm, 12/30/21 11:09:00 EDT, Height/Length Dosing, 154, kg, 12/30/21 11:09:00 EDT, Weight DosingStart: 04-26-9078Xdcx Strips, See Instructions, 100 EA, 3, Use to test BS daily, [facility] #83648, Supply, 167.5, cm,10/18/22 13:30:00 EDT, Height/Length Dosing, 147, kg, 10/18/22 13:30:00 EDT, Weight DosingStart: 84-62-7383Mfiyuyb, See Instructions, 100 EA, 3, Use to check BS daily dx E11.9, [facility] #76543, Supply, 163,cm, 12/30/21 11:09:00 EDT, Height/Length Dosing, 154, kg, 12/30/21 11:09:00 EDT, Weight DosingStart: 09-05-5468Pdgg Strips, See Instructions, 100 EA, 3, Use to test BS daily, [facility] #64084, Supply, 167.5, cm,10/18/22 13:30:00 EDT, Height/Length Dosing, 147, kg, 10/18/22 13:30:00 EDT, Weight DosingStart: 69-88-5860Pnrbqsu, See Instructions, 100 EA, 3, Use to check BS daily dx E11.9, [facility] #57140, Supply, 163,cm, 12/30/21 11:09:00 EDT, Height/Length Dosing, 154, kg, 12/30/21 11:09:00 EDT, Weight DosingStart: 79-58-4854Ciwt Strips, See Instructions, 100 EA, 3, Use to test BS daily, [facility] #52489, Supply, 167.5, cm,10/18/22 13:30:00 EDT, Height/Length Dosing, 147, kg, 10/18/22 13:30:00 EDT, Weight DosingStart: 13-51-3854Ctvqhxn, See Instructions, 100 EA, 3, Use to check BS daily dx E11.9, [facility] #54751, Supply, 163,cm, 12/30/21 11:09:00 EDT, Height/Length Dosing, 154, kg, 12/30/21 11:09:00 EDT, Weight DosingStart: 25-75-6591Dbqe Strips, See Instructions, 100 EA, 3, Use to test BS daily, [facility] #92700, Supply, 167.5, cm,10/18/22 13:30:00 EDT, Height/Length Dosing, 147, kg, 10/18/22 13:30:00 EDT, Weight DosingStart: 11-44-6948Vgyuwoq, See Instructions, 100 EA, 3, Use to check BS daily dx E11.9, [facility] #81628, Supply, 163,cm, 12/30/21 11:09:00 EDT, Height/Length Dosing, 154, kg, 12/30/21 11:09:00 EDT, Weight DosingStart: 45-62-1815Qipk Strips, See Instructions, 100 EA, 3, Use to test BS daily, [facility] #39945, Supply, 167.5, cm,10/18/22 13:30:00 EDT, Height/Length Dosing, 147, kg, 10/18/22 13:30:00 EDT, Weight DosingStart: 37-00-6184Yophnus, See Instructions, 100 EA, 3, Use to check BS daily dx E11.9, [facility] #[id number], Supply, 163,cm, 12/30/21 11:09:00 EDT, Height/Length Dosing, 154, kg, 12/30/21 11:09:00 EDT, Weight DosingStart: 80-22-6160Fydb Strips, See Instructions, 100 EA, 3, Use to test BS daily, [facility] #[id number], Supply, 167.5, cm,10/18/22 13:30:00 EDT, Height/Length Dosing, 147, kg, 10/18/22 13:30:00 EDT, Weight DosingStart: 86-06-5211Vxkikqf, See Instructions, 100 EA, 3, Use to check BS daily dx E11.9, [facility] #[id number], Supply, 163,cm, 12/30/21 11:09:00 EDT, Height/Length Dosing, 154, kg, 12/30/21 11:09:00 EDT, Weight DosingStart: 75-78-3819Bhyb Strips, See Instructions, 100 EA, 3, Use to test BS daily, [facility] #[id number], Supply, 167.5, cm,10/18/22 13:30:00 EDT, Height/Length Dosing, 147, kg, 10/18/22 13:30:00 EDT, Weight DosingStart: 26-15-6199Fxdyhvz, See Instructions, 100 EA, 3, Use to check BS daily dx E11.9, [facility] #[id number], Supply, 163,cm, 12/30/21 11:09:00 EDT, Height/Length Dosing, 154, kg, 12/30/21 11:09:00 EDT, Weight DosingStart: 62-43-9866Jzxj Strips, See Instructions, 100 EA, 3, Use to test BS daily, [facility] #[id number], Supply, 167.5, cm,10/18/22 13:30:00 EDT, Height/Length Dosing, 147, kg, 10/18/22 13:30:00 EDT, Weight DosingStart: 76-44-5183Qabvtkm, See Instructions, 100 EA, 3, Use to check BS daily dx E11.9, [facility] #[id number], Supply, 163,cm, 12/30/21 11:09:00 EDT, Height/Length Dosing, 154, kg, 12/30/21 11:09:00 EDT, Weight DosingStart: 26-23-5628Totw Strips, See Instructions, 100 EA, 3, Use to test BS daily, [facility] #[id number], Supply, 167.5, cm,10/18/22 13:30:00 EDT, Height/Length Dosing, 147, kg, 10/18/22 13:30:00 EDT, Weight DosingStart: 68-36-2294Mgmjnzf, See Instructions, 100 EA, 3, Use to check BS daily dx E11.9, [facility] #[id number], Supply, 163,cm, 12/30/21 11:09:00 EDT, Height/Length Dosing, 154, kg, 12/30/21 11:09:00 EDT, Weight DosingStart: 98-15-2836Pwal Strips, See Instructions, 100 EA, 3, Use to test BS daily, [facility] #[id number], Supply, 167.5, cm,10/18/22 13:30:00 EDT, Height/Length Dosing, 147, kg, 10/18/22 13:30:00 EDT, Weight DosingStart: 22-83-4319Afayjnq, See Instructions, 100 EA, 3, Use to check BS daily dx E11.9, [facility] #[id number], Supply, 163,cm, 12/30/21 11:09:00 EDT, Height/Length Dosing, 154, kg, 12/30/21 11:09:00 EDT, Weight DosingStart: 31-76-7864Qkrq Strips, See Instructions, 100 EA, 3, Use to test BS daily, [facility] #[id number], Supply, 167.5, cm,10/18/22 13:30:00 EDT, Height/Length Dosing, 147, kg, 10/18/22 13:30:00 EDT, Weight DosingStart: 54-04-6064Jjgmnwx, See Instructions, 100 EA, 3, Use to check BS daily dx E11.9, [facility] #[id number], Supply, 163,cm, 12/30/21 11:09:00 EDT, Height/Length Dosing, 154, kg, 12/30/21 11:09:00 EDT, Weight DosingStart: 69-36-0656Ukhk Strips, See Instructions, 100 EA, 3, Use to test BS daily, [facility] #[id number], Supply, 167.5, cm,10/18/22 13:30:00 EDT, Height/Length Dosing, 147, kg, 10/18/22 13:30:00 EDT, Weight DosingStart: 10-43-5535Vweckcl, See Instructions, 100 EA, 3, Use to check BS daily dx E11.9, [facility] #[id number], Supply, 163,cm, 12/30/21 11:09:00 EDT, Height/Length Dosing, 154, kg, 12/30/21 11:09:00 EDT, Weight DosingStart: 42-29-8138Jpxz Strips, See Instructions, 100 EA, 3, Use to test BS daily, [facility] #[id number], Supply, 167.5, cm,10/18/22 13:30:00 EDT, Height/Length Dosing, 147, kg, 10/18/22 13:30:00 EDT, Weight DosingStart: 81-26-0433Xgbivac Unknown 12/23/23 Non Biological UnknownFDAStart: 21-86-7470Ydgresw, See Instructions, 100 EA, 3, Use to check BS daily dx E11.9, [facility] #[id number], Supply, 163,cm, 12/30/21 11:09:00 EDT, Height/Length Dosing, 154, kg, 12/30/21 11:09:00 EDT, Weight DosingStart: 81-87-6625Ffzm Strips, See Instructions, 100 EA, 3, Use to test BS daily, [facility] #[id number], Supply, 167.5, cm,10/18/22 13:30:00 EDT, Height/Length Dosing, 147, kg, 10/18/22 13:30:00 EDT, Weight DosingStart: 02-27-9289Gnogufv Unknown 12/23/23 Non Biological UnknownFDAStart: 05-71-4159Pafeyin, See Instructions, 100 EA, 3, Use to check BS daily dx E11.9, [facility] #[id number], Supply, 163,cm, 12/30/21 11:09:00 EDT, Height/Length Dosing, 154, kg, 12/30/21 11:09:00 EDT, Weight DosingStart: 21-34-9345Lfgx Strips, See Instructions, 100 EA, 3, Use to test BS daily, [facility] #[id number], Supply, 167.5, cm,10/18/22 13:30:00 EDT, Height/Length Dosing, 147, kg, 10/18/22 13:30:00 EDT, Weight DosingStart: 94-23-3010Ebtxuvr Unknown 12/23/23 Non Biological UnknownFDAStart: 30-50-5590Tjbpajz, See Instructions, 100 EA, 3, Use to check BS daily dx E11.9, [facility] #[id number], Supply, 163,cm, 12/30/21 11:09:00 EDT, Height/Length Dosing, 154, kg, 12/30/21 11:09:00 EDT, Weight DosingStart: 13-46-7200Xhyc Strips, See Instructions, 100 EA, 3, Use to test BS daily, [facility] #[id number], Supply, 167.5, cm,10/18/22 13:30:00 EDT, Height/Length Dosing, 147, kg, 10/18/22 13:30:00 EDT, Weight DosingStart: 80-87-5614Dnborfw Unknown 12/23/23 Non Biological UnknownFDA Start: 49-79-7283Aacwtcc, See Instructions, 100 EA, 3, Use to check BS daily dx E11.9, [facility] #[id number], Supply, 163,cm, 12/30/21 11:09:00 EDT, Height/Length Dosing, 154, kg, 12/30/21 11:09:00 EDT, Weight DosingStart: 48-96-4944Oafw Strips, See Instructions, 100 EA, 3, Use to test BS daily, [facility] #[id number], Supply, 167.5, cm,10/18/22 13:30:00 EDT, Height/Length Dosing, 147, kg, 10/18/22 13:30:00 EDT, Weight DosingStart: 17-85-8407Kytphhv Unknown 12/23/23 Non Biological UnknownFDAStart: 63-56-1682Smtaeto, See Instructions, 100 EA, 3, Use to check BS daily dx E11.9, [facility][id number], Supply, 163,cm, 12/30/21 11:09:00 EDT, Height/Length Dosing, 154, kg, 12/30/21 11:09:00 EDT, Weight DosingStart: 75-30-7480Sxww Strips, See Instructions, 100 EA, 3, Use to test BS daily, [facility] #[id number], Supply, 167.5, cm,10/18/22 13:30:00 EDT, Height/Length Dosing, 147, kg, 10/18/22 13:30:00 EDT, Weight DosingStart: 21-21-3829Cwxucri Unknown 12/23/23 Non Biological UnknownFDAStart: 62-13-4680Qqnhddk, See Instructions, 100 EA, 3, Use to check BS daily dx E11.9, [facility] #[id number], Supply, 163,cm, 12/30/21 11:09:00 EDT, Height/Length Dosing, 154, kg, 12/30/21 11:09:00 EDT, Weight DosingStart: 49-02-9867Nbrq Strips, See Instructions, 100 EA, 3, Use to test BS daily, [facility] #[id number], Supply, 167.5, cm,10/18/22 13:30:00 EDT, Height/Length Dosing, 147, kg, 10/18/22 13:30:00 EDT, Weight DosingStart: 20-30-2289Awhebvi Unknown 12/23/23 Non Biological UnknownFDAStart: 93-18-9550Peoecug, See Instructions, 100 EA, 3, Use to check BS daily dx E11.9, [facility] #[id number], Supply, 163,cm, 12/30/21 11:09:00 EDT, Height/Length Dosing, 154, kg, 12/30/21 11:09:00 EDT, Weight DosingStart: 68-38-6769Acoa Strips, See Instructions, 100 EA, 3, Use to test BS daily, [facility] #[id number], Supply, 167.5, cm,10/18/22 13:30:00 EDT, Height/Length Dosing, 147, kg, 10/18/22 13:30:00 EDT, Weight DosingStart: 28-76-1059Yeqxuhd Unknown 12/23/23 Non Biological UnknownFDAStart: 27-74-9208Qurjmjy, See Instructions, 100 EA, 3, Use to check BS daily dx E11.9, [facility] #[id number], Supply, 163,cm, 12/30/21 11:09:00 EDT, Height/Length Dosing, 154, kg, 12/30/21 11:09:00 EDT, Weight DosingStart: 78-52-7716Bmrr Strips, See Instructions, 100 EA, 3, Use to test BS daily, [facility] #[id number], Supply, 167.5, cm,10/18/22 13:30:00 EDT, Height/Length Dosing, 147, kg, 10/18/22 13:30:00 EDT, Weight DosingStart: 25-30-3504Ybtwooh Unknown 12/23/23 Non Biological UnknownFDA Start: 98-97-8047Motyewu, See Instructions, 100 EA, 3, Use to check BS daily dx E11.9, [facility] #[id number], Supply, 163,cm, 12/30/21 11:09:00 EDT, Height/Length Dosing, 154, kg, 12/30/21 11:09:00 EDT, Weight DosingStart: 51-99-9943Httm Strips, See Instructions, 100 EA, 3, Use to test BS daily, [facility] #[id number], Supply, 167.5, cm,10/18/22 13:30:00 EDT, Height/Length Dosing, 147, kg, 10/18/22 13:30:00 EDT, Weight DosingStart: 17-18-7056Ealppnh Unknown 12/23/23 Non Biological UnknownFDAStart: 50-07-8615Nlaefsk, See Instructions, 100 EA, 3, Use to check BS daily dx E11.9, [facility] #[id number], Supply, 163,cm, 12/30/21 11:09:00 EDT, Height/Length Dosing, 154, kg, 12/30/21 11:09:00 EDT, Weight DosingStart: 48-94-2762Omjq Strips, See Instructions, 100 EA, 3, Use to test BS daily, [facility] #[id number], Supply, 167.5, cm,10/18/22 13:30:00 EDT, Height/Length Dosing, 147, kg, 10/18/22 13:30:00 EDT, Weight DosingStart: 43-08-2568Bpasekz Unknown 12/23/23 Non Biological UnknownFDAStart: 36-45-3169Gilzhbd, See Instructions, 100 EA, 3, Use to check BS daily dx E11.9, [facility] #[id number], Supply, 163,cm, 12/30/21 11:09:00 EDT, Height/Length Dosing, 154, kg, 12/30/21 11:09:00 EDT, Weight DosingStart: 00-13-2407Pycy Strips, See Instructions, 100 EA, 3, Use to test BS daily, [facility] #51517, Supply, 167.5, cm,10/18/22 13:30:00 EDT, Height/Length Dosing, 147, kg, 10/18/22 13:30:00 EDT, Weight DosingStart: 75-38-5075Zkfpeev Unknown 12/23/23 Non Biological UnknownFDAStart: 73-86-3437Mwrvcvl, See Instructions, 100 EA, 3, Use to check BS daily dx E11.9, [facility] #[id number], Supply, 163,cm, 12/30/21 11:09:00 EDT, Height/Length Dosing, 154, kg, 12/30/21 11:09:00 EDT, Weight DosingStart: 93-40-0652Gals Strips, See Instructions, 100 EA, 3, Use to test BS daily, [facility] #25117, Supply, 167.5, cm,10/18/22 13:30:00 EDT, Height/Length Dosing, 147, kg, 10/18/22 13:30:00 EDT, Weight DosingStart: 21-36-8613Uzabecg Unknown 12/23/23 Non Biological UnknownFDAStart: 27-04-6492Ounlqux, See Instructions, 100 EA, 3, Use to check BS daily dx E11.9, [facility] #72952, Supply, 163,cm, 12/30/21 11:09:00 EDT, Height/Length Dosing, 154, kg, 12/30/21 11:09:00 EDT, Weight DosingStart: 03-83-5052Pbzm Strips, See Instructions, 100 EA, 3, Use to test BS daily, [facility] #89063, Supply, 167.5, cm,10/18/22 13:30:00 EDT, Height/Length Dosing, 147, kg, 10/18/22 13:30:00 EDT, Weight DosingStart: 06-69-2529Xbcltmw Unknown 12/23/23 Non Biological UnknownFDA Start: 28-33-8556Ufxnwcd, See Instructions, 100 EA, 3, Use to check BS daily dx E11.9, [facility] #86776, Supply, 163,cm, 12/30/21 11:09:00 EDT, Height/Length Dosing, 154, kg, 12/30/21 11:09:00 EDT, Weight DosingStart: 86-47-7088Hcrz Strips, See Instructions, 100 EA, 3, Use to test BS daily, [facility] #[id number], Supply, 167.5, cm,10/18/22 13:30:00 EDT, Height/Length Dosing, 147, kg, 10/18/22 13:30:00 EDT, Weight DosingStart: 43-48-4443Oaqpxqf Unknown 12/23/23 Non Biological UnknownFDAStart: 33-27-3053Ylkndwj, See Instructions, 100 EA, 3, Use to check BS daily dx E11.9, [facility] #[id number], Supply, 163,cm, 12/30/21 11:09:00 EDT, Height/Length Dosing, 154, kg, 12/30/21 11:09:00 EDT, Weight DosingStart: 10-19-1705Mhcu Strips, See Instructions, 100 EA, 3, Use to test BS daily, [facility] #[id number], Supply, 167.5, cm,10/18/22 13:30:00 EDT, Height/Length Dosing, 147, kg, 10/18/22 13:30:00 EDT, Weight DosingStart: 22-27-1935Ijiohoq Unknown 12/23/23 Non Biological UnknownFDAStart: 41-75-7557Tvxdgra, See Instructions, 100 EA, 3, Use to check BS daily dx E11.9, [facility] #01318, Supply, 163,cm, 12/30/21 11:09:00 EDT, Height/Length Dosing, 154, kg, 12/30/21 11:09:00 EDT, Weight DosingStart: 50-24-0244Icvl Strips, See Instructions, 100 EA, 3, Use to test BS daily, [facility] #05588, Supply, 167.5, cm,10/18/22 13:30:00 EDT, Height/Length Dosing, 147, kg, 10/18/22 13:30:00 EDT, Weight DosingStart: 80-83-9023Qyctaud Unknown 12/23/23 Non Biological UnknownFDAStart: 51-48-4107Tyfypix, See Instructions, 100 EA, 3, Use to check BS daily dx E11.9, [facility] #10781, Supply, 163,cm, 12/30/21 11:09:00 EDT, Height/Length Dosing, 154, kg, 12/30/21 11:09:00 EDT, Weight DosingStart: 56-60-2021Qfey Strips, See Instructions, 100 EA, 3, Use to test BS daily, [facility] #35801, Supply, 167.5, cm,10/18/22 13:30:00 EDT, Height/Length Dosing, 147, kg, 10/18/22 13:30:00 EDT, Weight DosingStart: 72-20-9824Rlfswaf Unknown 12/23/23 Non Biological UnknownFDAStart: 72-95-8238Cwjtodb, See Instructions, 100 EA, 3, Use to check BS daily dx E11.9, [facility] #[id number], Supply, 163,cm, 12/30/21 11:09:00 EDT, Height/Length Dosing, 154, kg, 12/30/21 11:09:00 EDT, Weight DosingStart: 95-18-5019Kspv Strips, See Instructions, 100 EA, 3, Use to test BS daily, [facility] #76405, Supply, 167.5, cm,10/18/22 13:30:00 EDT, Height/Length Dosing, 147, kg, 10/18/22 13:30:00 EDT, Weight DosingStart: 56-42-8343Asqbjwb Unknown 12/23/23 Non Biological UnknownFDA Start: 12-48-2770Zcrruzv, See Instructions, 100 EA, 3, Use to check BS daily dx E11.9, [facility] #66332, Supply, 163,cm, 12/30/21 11:09:00 EDT, Height/Length Dosing, 154, kg, 12/30/21 11:09:00 EDT, Weight DosingStart: 91-05-9289Jkce Strips, See Instructions, 100 EA, 3, Use to test BS daily, [facility] #95086, Supply, 167.5, cm,10/18/22 13:30:00 EDT, Height/Length Dosing, 147, kg, 10/18/22 13:30:00 EDT, Weight DosingStart: 61-20-8624Pltcjqo Unknown 12/23/23 Non Biological UnknownFDAStart: 33-80-5812Chlwmmc, See Instructions, 100 EA, 3, Use to check BS daily dx E11.9, [facility] #58509, Supply, 163,cm, 12/30/21 11:09:00 EDT, Height/Length Dosing, 154, kg, 12/30/21 11:09:00 EDT, Weight DosingStart: 20-86-8945Vvza Strips, See Instructions, 100 EA, 3, Use to test BS daily, [facility] #12713, Supply, 167.5, cm,10/18/22 13:30:00 EDT, Height/Length Dosing, 147, kg, 10/18/22 13:30:00 EDT, Weight DosingStart: 06-31-6177Hxrlchm Unknown 12/23/23 Non Biological UnknownFDAStart: 59-76-4174Stwnwdc, See Instructions, 100 EA, 3, Use to check BS daily dx E11.9, [facility] #12503, Supply, 163,cm, 12/30/21 11:09:00 EDT, Height/Length Dosing, 154, kg, 12/30/21 11:09:00 EDT, Weight DosingStart: 16-95-4445Qvqn Strips, See Instructions, 100 EA, 3, Use to test BS daily, [facility] #86288, Supply, 167.5, cm,10/18/22 13:30:00 EDT, Height/Length Dosing, 147, kg, 10/18/22 13:30:00 EDT, Weight DosingStart: 66-30-7484Gaarsjb Unknown 12/23/23 Non Biological UnknownFDAStart: 29-03-0197Fnuvcvg, See Instructions, 100 EA, 3, Use to check BS daily dx E11.9, [facility] #03112, Supply, 163,cm, 12/30/21 11:09:00 EDT, Height/Length Dosing, 154, kg, 12/30/21 11:09:00 EDT, Weight DosingStart: 21-05-1722Uaxs Strips, See Instructions, 100 EA, 3, Use to test BS daily, [facility] #81587, Supply, 167.5, cm,10/18/22 13:30:00 EDT, Height/Length Dosing, 147, kg, 10/18/22 13:30:00 EDT, Weight DosingStart: 47-18-0018Lhzpmof Unknown 12/23/23 Non Biological UnknownFDAStart: 65-79-2184Pqgpbuv, See Instructions, 100 EA, 3, Use to check BS daily dx E11.9, [facility] #47595, Supply, 163,cm, 12/30/21 11:09:00 EDT, Height/Length Dosing, 154, kg, 12/30/21 11:09:00 EDT, Weight DosingStart: 13-75-3484Hwac Strips, See Instructions, 100 EA, 3, Use to test BS daily, [facility] #57228, Supply, 167.5, cm,10/18/22 13:30:00 EDT, Height/Length Dosing, 147, kg, 10/18/22 13:30:00 EDT, Weight DosingStart: 10-19-2022 Goals DatePatient GoalDesired Activity/State Functional Status MhukAaxlgnzrvyZtysfiJmlypcsf96-14-0707Gmjlvwrgjz StatusN/[facility] Iqfdjwd49-29-0122Gyilslunwl StatusN/[facility] Mqfjhmn08-13-0070Qqhqkurrfo StatusN/[facility]08-21-2024Functional StatusN/[facility] Ebivhnw30-92-9080Kxtishflow StatusN/[facility] 25-58-1990Oievaztftg StatusNo[facility]05-24-2024Functional StatusN/[facility] Fayfyci70-67-2864Nlzgzjnsww StatusN/[facility] Digestive Vfjurn41-05-1036Rycwoudqgf Status N/[facility] Myblauw75-61-5028Mkqiyiwurt StatusNo[facility]04-09-2024Functional StatusN/[facility] Shtmmak41-83-5029Rslancayyi StatusN/[facility] Gbwqlys95-04-7777Ieuacnttrg StatusN/[facility] Aafmnwy53-85-4886Fgranpbxag StatusN/[facility] Hrytetx95-01-9588Mobuyxqyig StatusN/[facility] Sctybhl63-25-7684Brdkxallse StatusN/[facility] Zfcndyf37-34-1975Hqaqcbostt StatusNo[facility]03-29-2023Functional Status[facility] 53-99-1327Ieejqpbxsj StatusN/[facility] Tjiilpy45-91-7628Rpiypwkewi StatusReg[facility]03-14-2023 Functional statusPatient at BaselineK[facility] Work Phone: [phone]qb StatusN/[facility] Qegzzsl18-38-7213Sxguvsogwl StatusN/[facility] Pjhgoho00-28-0496Bnqtthtznk StatusN/[facility] Mental Status JahhArpsixdpfrZzusctKmugzjzh72-74-5249Rcxepbdkz functionCognitive Status [facility] Work Phone: Clinical Notes 07-02-2021 to 05-14-2025 Note Date & EtkhJrjbRqfkbtnf11-56-0702 NotePatient Education Cardiovascular Heart Failure, Self-Care Heart [...] when you have heart failure Medicines Take hakf-umd-rairbto and prescription medicines only as told by [...] outside. ? Avoid alcohol. (more content not included)...[facility] 04-09-2025 Hospital Discharge instructions Patient Education 04/09/2025 12:14:37 [...] condition. Follow these instructions at home: Take eent-cex-lyhpvnk and prescription medicines only as told by [...] and water are not available, use hand certified flex endoscope reprocessor. Avoid contact with people who have cold [...] it is easier to cough up. Take zwdo-ega-eoovdli and prescription medicines only as told by [...] provider. Document Revised: 09/30/2022 Document Reviewed: 10/21/2021 [employer] Patient Education 2023 [employer]. 04/09/2025 06:41:02 Sleep Apnea Sleep Apnea Sleep [...] ask your health careprovider. General instructions Take vdol-spb-fbmnfce and prescription medicines only as told by [...] provider. Document Revised: 01/27/2022 Document Reviewed: 05/29/2021 [employer] Patient Education 2023 [employer]. 04/09/2025 06:41:00 Type 2 Diabetes Mellitus, Self-Care, [...] treat it right away. Always have a 24-zygcndnzc-etukip carbohydrate snack with you to treat low [...] you how to adjust your dosage. Take prwb-dup-flvnbos and prescription medicines only as told by [...] your health care provider once every year. [place] your teeth and gums two times a [...] meet with a certified diabetes care and elementary education teacher? Where can I find a support group for people with diabetes? Where to find more information For help and guidance and for more information about diabetes, please visit: [place] [employer] (ADA): www.diabetes.org [place] [employer] Care and Education Specialists [...] provider. Document Revised: 11/18/2021 Document Reviewed: 11/18/2021 [employer] Patient Education 2023 [employer]. 04/09/2025 06:40:57 Asthma, Adult Asthma, Adult Asthma [...] breathing (shortness of breath). Excessive nighttime or cadence specialists coughing. Chest tightness. Tiredness (fatigue) with minimal [...] condition. Follow these instructions at home: Take oldm-bvv-bkrjsps and prescription medicines only as told by [...] provider. Document Revised: 04/07/2022 Document Reviewed: 03/29/2022 [employer] Patient Education 2023 [employer]. Follow Up Care 04/08/2025 08:18:43 With:Nigel SMITH, CAP SIZER-PHOTO OFFSET PRINTER, [place] Hamilton Address: [address] [place] [phone] When:Within 3 Month(s) Comments:chronic care [facility] Doc 10-07-2025 NotePatient Education [...] health care provider. General instructions ??? Take xzqr-yve-fmhmyjg and prescription medicines only as told by [...] have: ? Trouble speak (more content not included)...[facility] 03-04-2025 Hospital Discharge instructions Patient Education [...] breathing (shortness of breath). Excessive nighttime or cadence specialists coughing. Chest tightness. Tiredness (fatigue) with minimal [...] condition. Follow these instructions at home: Take gube-rgl-qzqitsb and prescription medicines only as told by [...] provider. Document Revised: 04/07/2022 Document Reviewed: 03/29/2022 [employer] Patient Education 2023 [employer] 03/04/2025 12:44:27 Exercising to Lose Weight Exercising [...] your health care provider or diet and multi media specialist (dietitian). This may include: ?Eating fewer [...] provider. Document Revised: 08/16/2021 Document Reviewed: 08/16/2021 [employer] Patient Education 2023 [employer]. 03/04/2025 12:44:24 Type 2 Diabetes Mellitus, Self-Care, [...] treat it right away. Always have a 14-sglrpwqyl-lctgve carbohydrate snack with you to treat low [...] you how to adjust your dosage. Take mjlw-hsl-sofavjt and prescription medicines only as told by [...] your health care provider once every year. [place] your teeth and gums two times a [...] meet with a certified diabetes care and elementary education teacher? Where can I find a support group for people with diabetes? Where to find more information For help and guidance and for more information about diabetes, please visit: [place] [employer] (ADA): www.diabetes.org [place] [employer] Care and Education Specialists [...] provider. Document Revised: 11/18/2021 Document Reviewed: 11/18/2021 [employer] Patient Education 2023 [employer]. [facility] Doc 09-01-2025 NotePatient Education Endocrinology Type 2 Diabetes [...] treat it right away. Always have a 79-vopwzkjqz-csxaoa carbohydrate snack with you to treat low [...] how to adjust your dosage. ??? Take noth-tsh-wjcwmrg and prescription medicines only as told by [...] of the week. ? (more content not included)...[facility]08-04-2025 Hospital Discharge instructions Patient Education 02/04/2025 [...] your health care provider or diet and multi media specialist (dietitian). This may include: ?Eating fewer [...] provider. Document Revised: 08/16/2021 Document Reviewed: 08/16/2021 [employer] Patient Education 2023 [employer]. 02/04/2025 15:12:32 Type 2 Diabetes Mellitus, Self-Care, [...] treat it right away. Always have a 28-cxrozfuqp-wcjfjy carbohydrate snack with you to treat low [...] you how to adjust your dosage. Take larn-neh-hucwegd and prescription medicines only as told by [...] your health care provider once every year. [place] your teeth and gums two times a [...] meet with a certified diabetes care and elementary education teacher? Where can I find a support group for people with diabetes? Where to find more information For help and guidance and for more information about diabetes, please visit: [place] [employer] (ADA): www.diabetes.org [place] [employer] Care and Education Specialists [...] provider. Document Revised: 11/18/2021 Document Reviewed: 11/18/2021 [employer] Patient Education 2023 [employer]. 02/04/2025 15:12:29 Asthma, Adult Asthma, Adult Asthma [...] breathing (shortness of breath). Excessive nighttime or cadence specialists coughing. Chest tightness. Tiredness (fatigue) with minimal [...] condition. Follow these instructions at home: Take yaqd-lst-ouqngbu and prescription medicines only as told by [...] provider. Document Revised: 04/07/2022 Document Reviewed: 03/29/2022 [employer] Patient Education 2023 [employer]. Follow Up Care 01/02/2025 14:24:55 With:Nigel MSN, CAP SIZER-PHOTO OFFSET PRINTER, Paris Hamilton Address: [address] [place] [phone] When:Within 1 Month(s) Comments:weight loss, initial 40 min [facility] [place] 08-04-2025 NotePatient Education Endocrinology Type 2 Diabetes [...] treat it right away. Always have a 58-ueqafnlpz-pwjlac carbohydrate snack with you to treat low [...] how to adjust your dosage. ??? Take trhb-nau-jwzvtur and prescription medicines only as told by [...] of the week. ? (more content not included)...[facility]07-24-2025 NoteED Patient Education Note Caregiving Tissue [...] and water are not available, use hand certified flex endoscope reprocessor. ? Change your dressing as told by [...] scar, or cover it up. ??? Take etsm-ftz-lpyhdub and prescription medicines only as told by [...] provider. Document Revised: 10/26/2021 Document Reviewed: 10/26/2021 [employer] Patient Education ? 2023 [employer] Fall Prevention in the Home, Adult [...] Keep items that you use often in ebed-ed-jsrha places. Lower t (more content not included)...[facility]07-03-2025 NoteMicrobiology PROCEDURE: Blood Culture Charcoal [R1] SOURCE: Blood BODY SITE: Arm L COLLECTED DATE/TIME: 12/27/2024 10:54 EDT RECEIVED DATE/TIME: 12/27/2024 11:21 EDT START DATE/TIME: 12/27/2024 11:21 EDT FREE TEXT SOURCE: Mendez Spain, Whit Simms M.D., Whit Thurman FINAL REPORTS Final Report [] Verified Date/Time: 01/03/2025 12:00 EDT No growth at 7 days. Performing Locations R1: [facility] at[facility], [address] [place] [id number] [place] [address], [id number] Woods StreetComment on above:Performed By: #### [id number] #### [facility] [address] [place] [address] [id number] NoteMicrobiology PROCEDURE: Blood Culture Charcoal [R1] SOURCE: Blood BODY SITE: Arm R COLLECTED DATE/TIME: 12/27/2024 10:56 EDT RECEIVED DATE/TIME: 12/27/2024 11:21 EDT START DATE/TIME: 12/27/2024 11:21 EDT FREE TEXT SOURCE: IV Martine Simms M.D., Whit Simms M.D., Whit Thurman FINAL REPORTS Final Report [] Verified Date/Time: 01/03/2025 12:00 EDT No growth at 7 days. Performing Locations R1: This test was performed at: [email or web address], [address] [place] [id number] [place] [address], [address] [place], [place] [address]Comment on above:Performed By: #### [id number] #### [facility] [address] [place] [address] [phone] Hospital Discharge instructions Patient Education 01/02/2025 06:50:40 [...] treat it right away. Always have a 17-jboklzafb-tenqhk carbohydrate snack with you to treat low [...] you how to adjust your dosage. Take ehql-oqw-hsiukkt and prescription medicines only as told by [...] your health care provider once every year. [place] your teeth and gums two times a [...] meet with a certified diabetes care and elementary education teacher? Where can I find a support group for people with diabetes? Where to find more information For help and guidance and for more information about diabetes, please visit: [place] [employer] (ADA): www.diabetes.org [place] [employer] Diabetes Care and Education Specialists [...] provider. Document Revised: 11/18/2021 Document Reviewed: 11/18/2021 [employer] Patient Education 2023 [employer]. 01/02/2025 06:50:38 Sleep Apnea Sleep Apnea Sleep [...] ask your health careprovider. General instructions Take ocsr-wsb-reocfvo and prescription medicines only as told by [...] provider. Document Revised: 01/27/2022 Document Reviewed: 05/29/2021 [employer] Patient Education 2023 [employer]. 01/02/2025 06:50:35 Heart Failure, Self-Care Heart Failure, [...] when you have heart failure Medicines Take ximp-rur-ttcpwbf and prescription medicines only as told by [...] provider. Document Revised: 09/28/2022 Document Reviewed: 01/10/2021 [employer] Patient Education 2023 [employer]. 01/02/2025 06:50:34 Health Risks of Smoking Health [...] Department of Health and Human Services: www.smokefree.gov [place] [employer]: www.freedomfromsmoking.org [place] [employer]: www.heart.org Where to find more [...] provider. Document Revised: 06/22/2022 Document Reviewed: 06/22/2022 [employer] Patient Education 2023 [employer]. Follow Up Care 12/19/2024 13:33:44 With:Nigel SMITH, CAP SIZER-PHOTO OFFSET PRINTER, Paris Joy Address: [address] [place] [phone] When:Within 1 Month(s) [facility] 07-02-2025 NotePatient Education Cardiovascular Heart Failure, Self-Care [...] when you have heart failure Medicines Take mifb-tzc-mtktgbi and prescription medicines only as told by [...] outside. ? Avoid alcohol. (more content not included)...[facility] 12-29-2024 Evaluation + Plan noteExtracted from:Title:Discharge [...] When Contact Information Follow up with your network engineer administrator as Scheduled January 01 Additional Instructions: Paris Rust Within 7 to 10 days [address] [place] [phone] [facility] (1) Additional Instructions: Call for followup appointment Cellulitis, Adult Fluid Restriction Heart Failure Action Plan Form - Daily Weight Record Extracted from:Title:APSO NoteAuthor:Abisai Kaur III, DODate:12/28/24 Patient is a 64-year-old fem nazanin with past medical history of tobacco abuse, HTN, HFpEF, GERD, history of alcohol abuse, HLD, asthma, BRENDA, morbid obesity (BMI 58.6), odm-rjuplef-fngczcgbg type 2 diabetes, marijuana use, COPD not on home oxygen, hypertension, history of volume overload especially with heavy alcohol use admitted to [facility] on 12/27/2024 for treatment of acute [...] made to ensure accuracy. However inadvertent computerized insurance counsel errors may be present. Extracted from:Title:Admission H & PAuthor:Natasha MARCO Abisai HERNÁNDEZFrancoDate: 12/27/24 Patient is a 64-year-old fem nazanin with past medical history of tobacco abuse, HTN, HFpEF, GERD, history of alcohol abuse, HLD, asthma, BRENDA, morbid obesity (BMI 58.6), qlv-fpuuqbv-mswpbfxcp type 2 diabetes, marijuana use, COPD not on home oxygen, hypertension, history of volume overload especially with heavy alcohol use admitted to [facility] on 12/27/2024 for treatment of acute [...] Complete Initial Hospital Care/Day Moderate 55 Minutes [id number] Notify Provider Vital Signs Notify Provider Vital [...] made to ensure accuracy. However inadvertent computerized insurance counsel errors may be present. Addendum by Abisai [...] 02:00:00 PM Scheduled Provider:Rick Hernandez PA-C [facility] [place] [facility] Type:Cardiology Follow Up (FT) Appointment Date:01/02/2025 01:40:00 PM Scheduled Provider:Nigel SMITH, CAP SIZER-IRVING, Paris Hamilton Location:[facility] Doc Appointment Type: Open Appointment Date:01/07/2025 12:30:00 PM Scheduled Provider: Location:.CARDIO Appointment Type:PUL Pulmonary Function Test (FT) Future Scheduled Tests Laboratory* Microalbumin Level Urine 12/19/24 * Urine Microalbumin/Creatinine Ratio 12/19/24 [facility] 06-28-2025 Hospital Discharge instructions Patient Education [...] Follow these instructions at home: Medicines Take wftz-wyt-rzguutg and prescription medicines only as told by [...] provider. Document Revised: 02/15/2023 Document Reviewed: 02/15/2023 [employer] Patient Education 2023 MacuCLEAR. 12/29/2024 11:04:37 Fluid Restriction Fluid Restriction Fluid [...] provider. Document Revised: 04/07/2021 Document Reviewed: 04/07/2021 [employer] Patient Education 2023 MacuCLEAR. 12/29/2024 11:04:35 Heart Failure Action Plan Heart [...] symptoms. Follow these instructions at home: Take mkjg-vwb-fnqsruu and prescription medicines only as told by your health care provider. Weigh yourself daily. Your target weight is lb ( kg). ?Call your health care provider if you gain more than lb ( kg) in 24 hours, ormore than lb ( kg) in a week. ?Health care provider name: ?Health care provider phone number: Eat a heart-healthy diet. Work with a diet and multi media specialist (dietitian) to create an eatingplan that is best for you. Keep all follow-up visits. This is important. Where to find more information [place] [employer] Association: Summary A heart failure action [...] provider. Document Revised: 09/28/2022 Document Reviewed: 02/02/2021 [employer] Patient Education 2023 [employer] 12/29/2024 11:04:33 Form - Daily Weight [...] provider. Document Revised: 02/23/2022 Document Reviewed: 02/23/2022 [employer] Patient Education 2023 [employer]. Follow Up Care 12/27/2024 10:32:55 With:Follow up with your network engineer administrator as Scheduled January 01 Address:Unknown When: Unknown With:Paris Rust Address: [address] [place] [address] [place] [address] [phone] Business (1) When:7 to 10 days Comments:Call for followup appointment [facility] 06-28-2025 NoteDischarge Summary Admission and Discharge [...] HLD, asthma, BRENDA, morbid obesity (BMI 58.6), wsv-fkhrqcm-bibsvstsj type 2 diabetes, marijuana use, COPD not on home oxygen, hypertension, history of volume overload especially with heavy alcohol use admitted to [facility] on 12/27/2024 for treatment of right [...] 250 mg= 1 tab(s) (more content not included)...[facility]:Result Comment: Electronically Signed By: Abisai Kaur III, DO\Date and Time Signed: 12/29/24 11:11 EDT 12-28-2024 NoteProgress Note-Physician Assessment/Plan Patient is a 64-year-old female with past medical history of tobacco abuse, HTN, HFpEF, GERD, history of alcohol abuse, HLD, asthma, BRENDA, morbid obesity (BMI 58.6), zwq-vxfllcx-kptovejhi type 2 diabetes, marijuana use, COPD not on home oxygen, hypertension, history of volume overload especially with heavy alcohol use admitted to [facility] on 12/27/2024 for treatment of acute [...] made to ensure accuracy. However inadvertent computerized insurance counsel errors may be present. Subjective Patient seen [...] Intake mL 125 4,209 (more content not included)...[facility] on above: Result Comment: Electronically Signed By: Abisai Kaur III, DO\.br\Date and Time Signed: 12/28/24 14:25 [id number] NoteHistory and Physical Basic Information Admit Date/Time:12/27/2024 13:58 Chief Complaint Shortness od breath, edema History of Present Illness Patient is a 64-year-old female with past medical history of tobacco abuse, HTN, HFpEF, GERD, history of alcohol abuse, HLD, asthma, BRENDA, morbid obesity (BMI 58.6), kwr-ogiqeea-bonhdysdn type 2 diabetes, marijuana use, COPD not on home oxygen, hypertension, history of volume overload especially with heavy alcohol use who presents to [facility] on 12/27/2024 with chief complaint of [...] Lymph Auto: 12.1 % Low (12/27/24 10:54:00) Hawkins Auto: 5.3 % (12/27/24 10:54:00) Eos Auto: 1 % (12/27/24 10:54:00) Basophil Auto: 0.8 % (12/27/24 10:54:00) Neutro Absolute: 5.8 E9/L (12/27/24 10:54:00) Lymph Absolute: 0.9 E9/L Low (12/27/24 10:54:00) Hawkins Absolute: 0.4 E9/L (12/27/24 10:54:00) Eos Absolute: [...] 87 mg/dL (12/27/24 16:55:00) POC Device SN: [id number] (12/27/24 16:55:00) POC User ID: [id number] (12/27/24 16:55:00) POC Username: MIKEY CADET (12/27/24 16:55:00) Assessment/Plan Patient is a 64-year-old female with past medical history of tobacco abuse, HTN, HFpEF, GERD, history of alcohol abuse, HLD, asthma, BRENDA, morbid obesity (BMI 58.6), ael-xxwykkn-uswtfnuen type 2 diabetes, marijuana use, COPD not on home oxygen, hypertension, history of volume overload especially with heavy alcohol use admitted to [facility] on 12/27/2024 for treatment of acute COPD exacerbation and acute heart failure exacerbation. 1. Acute on chronic heart failure (more content not included)...[facility] HospitalComment on above:Result Comment: Electronically Signed By: Abisai Kaur III, DO.br\Date and Time Signed: 12/28/24 14:21 [id number] Note Echocardiology Procedure Exam Date/Time Accession # Ordering Echo Transthoracic 12/28/2024 10:03 EDT [id number] Abisai Kaur III, DO CPT code [id number] Reason for Exam (Echo Transthoracic Complete) Congestive Heart Failure Report [facility] [address] [place] [address] Adult Echocardiogram Report Name: CARMEN BLEDSOE Study Date: 12/28/2024 09:14 AM BP: 131/72 mmHg [facility] HR: 73 : 1960 Gender: Female Height: 65.5 in Age: 64 yrs Ethnicity: [facility] Weight: 353 lb Reason For Study: Congestive Heart Failure BSA: 2.5 m2 History: HTN,Diabetes,BRENDA, Asthma, Smoker Alcohol abuse- remission Ordering Physician: Natasha^Abisai^Erich Performed By: Annabel Oconnell, ELENA Interpretation Summary The left ventricle is normal [...] Winter Coe MD Transcribed by: RUBEN Technologist: [facility] Note History and Physical Basic Information Admit Date/Time:12/27/2024 13:58 Chief Complaint Shortness od breath, edema History of Present Illness Patient is a 64-year-old female with past medical history of tobacco abuse, HTN, HFpEF, GERD, history of alcohol abuse, HLD, asthma, BRENDA, morbid obesity (BMI 58.6), cpe-tbbmboy-rmybqcxux type 2 diabetes, marijuana use, COPD not on home oxygen, hypertension, history of volume overload especially with heavy alcohol use who presents to [facility] on 12/27/2024 with chief complaint of [...] Lymph Auto: 12.1 % Low (12/27/24 10:54:00) Hawkins Auto: 5.3 % (12/27/24 10:54:00) Eos Auto: 1 % (12/27/24 10:54:00) Basophil Auto: 0.8 % (12/27/24 10:54:00) Neutro Absolute: 5.8 E9/L (12/27/24 10:54:00) Lymph Absolute: 0.9 E9/L Low (12/27/24 10:54:00) Hawkins Absolute: 0.4 E9/L (12/27/24 10:54:00) Eos Absolute: [...] 87 mg/dL (12/27/24 16:55:00) POC Device SN: [id number] (12/27/24 16:55:00) POC User ID: [id number] (12/27/24 16:55:00) POC Username: MIKEY CADET (12/27/24 16:55:00) Assessment/Plan Patient is a 64-year-old female with past medical history of tobacco abuse, HTN, HFpEF, GERD, history of alcohol abuse, HLD, asthma, BRENDA, morbid obesity (BMI 58.6), hab-xzfuzmx-frpltdkez type 2 diabetes, marijuana use, COPD not on home oxygen, hypertension, history of volume overload especially with heavy alcohol use admitted to [facility] on 12/27/2024 for treatment of acute COPD exacerbation and acute heart failure exacerbation. 1. Acute on chronic heart failure (more content not included)...[facility] HospitalComment on above:Result Comment: Electronically Signed By: Abisai Kaur III, DO\.br\Date and Time Signed: 12/27/24 17:49 [id number] Hospital Discharge instructions Patient Education 12/19/2024 06:38:27 [...] treat it right away. Always have a 02-myryhbdse-zzlevq carbohydrate snack with you to treat low [...] you how to adjust your dosage. Take muzs-kwj-eagshxn and prescription medicines only as told by [...] your health care provider once every year. [place] your teeth and gums two times a [...] meet with a certified diabetes care and elementary education teacher? Where can I find a support group for people with diabetes? Where to find more information For help and guidance and for more information about diabetes, please visit: [place] Diabetes Association (ADA): www.diabetes.org [place] Association of Diabetes Care and Education Specialists [...] provider. Document Revised: 11/18/2021 Document Reviewed: 11/18/2021 [employer] Patient Education 2023 Macu[employer]AR. 12/19/2024 06:38:26 Hypertension, Adult Hypertension, Adult High [...] follow-up visits. This is important. Medicines Take sakb-stx-ipmqhah and prescription medicines only as told by [...] provider. Document Revised: 04/27/2022 Document Reviewed: 04/27/2022 [employer] Patient Education 2023 [employer]uCLEAR. 12/19/2024 06:38:25 Heart Failure, Self-Care Heart Failure, [...] when you have heart failure Medicines Take lncf-daz-bgvwksn and prescription medicines only as told by [...] provider. Document Revised: 09/28/2022 Document Reviewed: 01/10/2021 [employer] Patient Education 2023 [employer]uCLEAR. Follow Up Care 09/12/2024 13:36:39 With:Nigel SMITH, CAP SIZER-IRVING, Paris Hamilton Address: [address] [place] [phone] When:Within 2 Week(s) Comments:chronic care [facility] Doc 06-18-2025 NotePatient Education [...] one 12 oz bottle (more content not included)...[facility] Discharge instructions Patient Education 11/27/2024 [...] to any changes in your symptoms. Take rtzf-wgv-vjsrvuj and prescription medicines only as told by [...] provider. Document Revised: 02/06/2022 Document Reviewed: 02/06/2022 [employer] Patient Education 2023 [employer]uCLEAR. 11/27/2024 17:34:19 Type 2 Diabetes Mellitus, Self-Care, [...] treat it right away. Always have a 87-hbpdxcykt-wcqbxm carbohydrate snack with you to treat low [...] you how to adjust your dosage. Take bxhr-qpq-upvufru and prescription medicines only as told by [...] your health care provider once every year. [place] your teeth and gums two times a [...] meet with a certified diabetes care and elementary education teacher? Where can I find a support group for people with diabetes? Where to find more information For help and guidance and for more information about diabetes, please visit: [place] Diabetes Association (ADA): www.diabetes.org [place] Association of Diabetes Care and Education Specialists [...] provider. Document Revised: 11/18/2021 Document Reviewed: 11/18/2021 [employer] Patient Education 2023 MacuCLEAR. 11/26/2024 10:15:58 Peripheral Edema Peripheral Edema Peripheral [...] by your health care provider. Medicines Take opkp-sgf-hzcvghq and prescription medicines only as told by [...] provider. Document Revised: 02/22/2022 Document Reviewed: 02/22/2022 [employer] Patient Education 2023 MacuCLEAR. 11/26/2024 10:15:55 Health Risks of Smoking Health [...] Department of Health and Human Services: www.smokefree.gov [place] Lung Association: www.freedomfromsmoking.org [place] Heart Association: www.heart.org Where to find more [...] provider. Document Revised: 06/22/2022 Document Reviewed: 06/22/2022 Else[employer] Patient Education 2023 [employer]AR. Follow Up Care 11/12/2024 15:55:00 With:Nigel SMITH, CAP SIZER-PHOTO OFFSET PRINTER, Paris Hamilton Address: [address] [place] [phone] When: only if needed [facility] Doc 05-27-2025 NotePatient Education Endocrinology Type [...] treat it right away. Always have a 60-ujltqdjts-umbhmw carbohydrate snack with you to treat low [...] how to adjust your dosage. ??? Take xpys-gol-boztywb and prescription medicines only as told by [...] of the week. ? (more content not included)...[facility] History of Present illness Narrative* Susu Moody - 11/07/2024 10:00 AM EDT BRENDA on CPAP machine * Coco Dean MD - 11/07/2024 10:00 AM EDT BARIATRIC SURGERY NEW PATIENT CONSULTATION HISTORY AND PHYSICAL Date: 11/07/2024 Time: 10:47 AM Name: Carmen Bledsoe PCP: Paris Rust Insurance: Payor: [facility] MEDICAID COMMUNITY PLAN / Plan: [facility] MEDICAID COMMUNITY PLAN / Product Type: *No [...] Health Provider for the 'psych eval - Commercial Decorator - Will obtain old medical records to [...] Minimally Invasive General Surgery [facility] NotePatient Education Health Risks of Smoking [...] of Health and Human Services: www.smokefree.gov ??? [place] Lung Association: www.freedomfromsmoking.org ??? [place] Heart Association: www.heart.org Where to find more [...] provider. Document Revised: 06/22/2022 Document Reviewed: 06/22/2022 [employer] Patient Education ? 2023 [employer] Inc[employer] Cardiovascular Hypertension, Adult High blood pressure [...] in high bloodpressure. What (more content not included)...[facility] Hospital Discharge instructions Patient Education 08/29/2024 [...] treat it right away. Always have a 33-scpbynssp-kygmlp carbohydrate snack with you to treat low [...] you how to adjust your dosage. Take kxrm-mdl-tluvgzu and prescription medicines only as told by [...] your health care provider once every year. [place] your teeth and gums two times a [...] meet with a certified diabetes care and elementary education teacher? Where can I find a support group for people with diabetes? Where to find more information For help and guidance and for more information about diabetes, please visit: [place] Diabetes Association (ADA): www.diabetes.org [place] Association of Diabetes Care and Education Specialists [...] provider. Document Revised: 11/18/2021 Document Reviewed: 11/18/2021 [employer] Patient Education 2023 MacuCLEAR. 08/29/2024 08:03:26 Hypertension, Adult Hypertension, Adult High [...] follow-up visits. This is important. Medicines Take uijn-fom-btespxm and prescription medicines only as told by [...] provider. Document Revised: 04/27/2022 Document Reviewed: 04/27/2022 [employer] Patient Education 2023 MacuCLEAR. 08/29/2024 08:03:25 High Cholesterol High Cholesterol High [...] ask your health careprovider. General instructions Take vkvx-rvn-kwzgbyu and prescription medicines only as told by your health care provider. Keep all follow-up visits. This is important. Where to find more information [place] Heart Association: www.heart.org National Heart, Lung, and Blood [place]: www.nhlbi.nih.gov Contact a health care provider if: [...] provider. Document Revised: 01/21/2023 Document Reviewed: 08/24/2021 [employer] Patient Education 2023 MacuCLEAR. Follow Up Care 02/22/2024 14:05:28 With:Nigel SMITH, CAP SIZER-PHOTO OFFSET PRINTER, Paris Hamilton Address: [address] [place] [phone] When:Within 6 Month(s) Comments:chronic care [facility] Doc 02-26-2025 NotePatient Education Cardiovascular Hypertension, Adult High [...] one 12 oz bottle (more content not included)...[facility] Hospital Discharge instructions Patient Education 07/18/2024 [...] to find support Your health care provider. [facility]: smartre[facility]ent[facility] centery.org Local treatment centers or chemical dependency counselors. Local AA groups in your community: aa.org Where to find more information Centers for Disease Control and Prevention: cdc.gov National [place] on Alcohol Abuse and Alcoholism: niaaa.nih.gov Alcoholics [...] the National Suicide Prevention Lifeline at or 078. This is open 24 hours a day. Text the Crisis Text Line at 251582. Summary Alcohol misuse and dependence can have [...] provider. Document Revised: 08/25/2022 Document Reviewed: 08/25/2022 [employer] Patient Education 2023 MacuCLEAR. 07/18/2024 12:21:13 Type 2 Diabetes Mellitus, Self-Care, [...] treat it right away. Always have a 12-ylogkazhw-nvyikl carbohydrate snack with you to treat low [...] you how to adjust your dosage. Take ycro-fbf-munmgdy and prescription medicines only as told by [...] your health care provider once every year. [place] your teeth and gums two times a [...] meet with a certified diabetes care and elementary education teacher? Where can I find a support group for people with diabetes? Where to find more information For help and guidance and for more information about diabetes, please visit: [place] Diabetes Association (ADA): www.diabetes.org [place] Association of Diabetes Care and Education Specialists [...] provider. Document Revised: 11/18/2021 Document Reviewed: 11/18/2021 Elsevier Patient Education 2023 MacuCLEAR. Follow Up Care 07/11/2024 12:07:33 With:Nigel SMITH, CAP SIZER-PHOTO OFFSET PRINTER, Paris Hamilton Address: [address] [place] [phone] When: only if needed Comments:keep next month appt [facility] Doc 01-15-2025 NotePatient Education [...] treat it right away. Always have a 83-ywcmiseib-xghmdz carbohydrate snack with you to treat low [...] how to adjust your dosage. ??? Take kmob-uzq-rrweava and prescription medicines only as told by [...] of the week. ? (more content not included)...[facility] NoteNurse Consultation Note Reason for Visit [...] virus vaccine, inactivated 05/11/2022 Recorded SARS-CoV-2 (COVID-19) mRNAMUL.[id number] 05/11/2022 Recorded SARSCoV2 mRNA(zthwtapan-xjrf-tjcfop) vac 12/15/2021 Recorded SARS-CoV-2 (COVID-19) mRNA BNT-162b2 [...] vaccine 12/16/2017 Recorded diphtheria/pertussis, acel/tetanus adult 10/27/2014 RecordedHolzer [facility]01-09-2025 NotePatient Education Infectious Disease Diarrhea, Adult [...] oral rehydration solution (ORS). This is an ugyp-qaa-jvxslbf medicine that helps returnyour body to its [...] drinks. ? Avoid alcohol. ??? Eat bland, qqsw-mz-uwrksq foods in small amounts as you are able. These foods include bananas, applesauce, rice, lean meats, toast, and crackers. ??? Avoid spicy or fatty foods. Medicines ??? Take btgq-uar-obfehxj and prescription medicines only as told by your health care provider. ??? If you were prescribed antibiotics, take them as told by your health care provider. Do not stopusing the antibiotic even if you start to feel better. General instructions ??? Wash your hands often using soap and water for at least 20 seconds. If soap and water are not available, use hand certified flex endoscope reprocessor. Others in the household should wash their [...] provider. Document Revised: 12/07/2022 Document Reviewed: 12/07/2022 ElseActuris Patient Education ? 2023 [employer] Inc. Mental and Behavioral Health Alcohol Misuse and [...] friends and family. ??? (more content not included)...[facility] Hospital Discharge instructions Follow Up Care 07/05/2024 08:14:42 With:nurse visit Address: When:2 to 3 days Comments:fasting labs With:Nigel SMITH, CAP SIZER-Paris VILLATORO Address: [address] [place] [phone] When:Within 1 Week(s) Comments:chronic care [facility] [place] 08-21-2024 Hospital Discharge instructions Patient Education 02/22/2024 [...] treat it right away. Always have a 43-oadafzuyy-meevfo carbohydrate snack with you to treat low [...] you how to adjust your dosage. Take jaxm-dci-uvqdcgw and prescription medicines only as told by [...] your health care provider once every year. [place] your teeth and gums two times a [...] meet with a certified diabetes care and elementary education teacher? Where can I find a support group for people with diabetes? Where to find more information For help and guidance and for more information about diabetes, please visit: [place] Diabetes Association (ADA): www.diabetes.org [place] Association of Diabetes Care and Education Specialists [...] provider. Document Revised: 11/18/2021 Document Reviewed: 11/18/2021 [employer] Patient Education 2022 MacuCLEAR. 02/22/2024 08:31:36 Mediterranean Diet Mediterranean Diet A [...] in common dishes like chili or lasagna. [place] with different cooking methods. Try roasting, broiling, [...] available, such as: ?Vegetable sticks with hummus. ?Fijian yogurt. ?Fruit and nut trail mix. Eat [...] Quinoa. Meats and other proteins Beans. Almonds. [place] seeds. [place] nuts. Peanuts. Cod. [place]. Scallops. Shrimp. Tuna. Tilapia. Clams. Oysters. Eggs. Poultry without skin. Dairy Low-fat milk. Cheese. Fijian yogurt. Fats and oils Extra-virgin olive oil. Avocado oil. Grapeseed oil. Beverages Water. Red wine. Herbal tea. Sweets and desserts Fijian yogurt with honey. Baked apples. Poached pears. [place] mix. Seasonings and condiments Basil. Cilantro. Coriander. [...] Fruit canned in syrup. Vegetables Deep-fried potatoes (bermudian fries). Grains Prepackaged pasta or rice dishes. [...] provider. Document Revised: 07/25/2020 Document Reviewed: 05/22/2020 [employer] Patient Education 2022 [employer]AR. 02/22/2024 08:31:35 Hypertension, Adult Hypertension, Adult High [...] follow-up visits. This is important. Medicines Take mtaj-akj-fppklla and prescription medicines only as told by [...] provider. Document Revised: 04/27/2022 Document Reviewed: 04/27/2022 [employer] Patient Education 2022 [employer]AR. 02/22/2024 08:31:33 Health Risks of Smoking Health [...] Department of Health and Human Services: www.smokefree.gov [place] Lung Association: www.freedomfromsmoking.org [place] Heart Association: www.heart.org Where to find more [...] 06/22/2022 Document Reviewed: 06/22/2022 Elsevier Patient Education 2022 MacuCLEAR. Follow Up Care 11/25/2023 14:56:18 With:Nigel SMITH, CAP SIZER-Paris VILLATORO Address: [address] [place] [phone] When:Within 6 Month(s) Comments:chronic care [facility] Doc 08-21-2024 NotePatient Education Cardiovascular Hypertension, Adult [...] wine (148 mL), (more content not included)...[facility]06-24-2024 Note [id number] 12-23-2023 Hospital Discharge instructions Patient Education 12/23/2023 13:17:05 Colonoscopy, Care After Surgery Salam (CUSTOM) Colonoscopy Care After Surgery Please read the instructions outlined below and refer to this sheet in the next few weeks. These discharge instructions provide you with general information on caring for yourself [facility] Your doctor may also give you [...] Care 11/02/2023 11:19:36 With:Marjan SAMPSON, Walker Pritchett, [facility], [facility] Address: [address], [address] [phone] When: Unknown Comments:Call Office in 2 weeks for results or follow-up Appt. [facility]06-21-2024 Evaluation + Plan noteExtracted from: Title:ANES Post-operative Note---GeneralAuthor:Zaid Benz MDDate:12/23/23 Plan Transfer/Discharge: Transfer/Discharge Discharge when meets criteria ( To home ). Extracted from:Title:ANES Pre-operative Note uthor:Zaid Benz MDDate: 12/23/23 Plan [place] Society of Anesthesiologists (ASA) physical status classification: Class III. Anesthetic Preoperative Plan: Anesthesia General. Future Appointments Appointment Date:01/27/2024 10:00:00 AM Scheduled Provider:Walker Phillip MD Location:[facility] Digestive Health Appointment Type:BAD Follow Up Appointment Date:02/22/2024 01:20:00 PM Scheduled Provider:Nigel MSN, CAP SIZER-PHOTO OFFSET PRINTER[place] Location:[facility] Appointment Type:FM Open Appointment Date:06/05/2024 01:00:00 PM Scheduled Provider:Alirio Ramirez MD [facility] [place] [facility] Type:Cardiology Follow Up (FT) Future Scheduled Tests Laboratory* Hep B Core Ab, Tot 11/02/23 * Vpxzv-8-Obfzutcjgbk 11/02/23 * B-Type Natriuretic Peptide 10/25/23 * [...] Level 11/02/23 * PT 11/02/23 [facility]05-23-2024 Hospital Discharge instructions Patient Education 11/24/2023 [...] asked to follow these instructions. Medicines Take fjha-bxa-hfhtpyw and prescription medicines only as told by your health care provider. Do not start taking any new medicine unless your health care provider has approved. These include erme-vks-motswbz medicines, vitamins, herbs, and supplements. Some of [...] provider. Document Revised: 05/19/2022 Document Reviewed: 05/19/2022 [employer] Patient Education 2022 [employer]. 11/24/2023 19:09:12 Hepatomegaly Hepatomegaly Hepatomegaly is when [...] asked to follow these instructions. Medicines Take imnv-psq-cnbaanw and prescription medicines only as told by your health care provider. Do not start taking any new medicine unless your health care provider has approved. These include pgcx-mlc-jxzpifv medicines, vitamins, herbs, and supplements. Some of [...] provider. Document Revised: 05/19/2022 Document Reviewed: 05/19/2022 [employer] Patient Education 2022 [employer]. 11/24/2023 19:09:07 Type 2 Diabetes Mellitus, Self-Care, [...] treat it right away. Always have a 42-izfxwxrfz-auvihl carbohydrate snack with you to treat low [...] you how to adjust your dosage. Take hcqv-enb-henrton and prescription medicines only as told by [...] your health care provider once every year. [place] your teeth and gums two times a [...] meet with a certified diabetes care and elementary education teacher? Where can I find a support group for people with diabetes? Where to find more information For help and guidance and for more information about diabetes, please visit: [place] Diabetes Association (ADA): www.diabetes.org [place] Association of Diabetes Care and Education Specialists [...] provider. Document Revised: 11/18/2021 Document Reviewed: 11/18/2021 [employer] Patient Education 2022 [employer]. 11/24/2023 19:09:06 Mediterranean Diet Mediterranean Diet A [...] in common dishes like chili or lasagna. [place] with different cooking methods. Try roasting, broiling, [...] available, such as: ?Vegetable sticks with hummus. ?Fijian yogurt. ?Fruit and nut trail mix. Eat [...] Quinoa. Meats and other proteins Beans. Almonds. [place] seeds. [place] nuts. Peanuts. Cod. [place]. Scallops. Shrimp. Tuna. Tilapia. Clams. Oysters. Eggs. Poultry without skin. Dairy Low-fat milk. Cheese. Fijian yogurt. Fats and oils Extra-virgin olive oil. Avocado oil. Grapeseed oil. Beverages Water. Red wine. Herbal tea. Sweets and desserts Fijian yogurt with honey. Baked apples. Poached pears. [place] mix. Seasonings and condiments Basil. Cilantro. Coriander. [...] Fruit canned in syrup. Vegetables Deep-fried potatoes (bermudian fries). Grains Prepackaged pasta or rice dishes. [...] provider. Document Revised: 07/25/2020 Document Reviewed: 05/22/2020 [employer] Patient Education 2022 [employer] Follow Up Care 10/26/2023 14:06:56 With:Nigel SMITH, DARLEEN-[place] VILLATORO Address: [address] [place] [phone] When:Within 3 Month(s) Comments:chronic care [facility] [place] 05-09-2024 NoteEchocardiology Procedure Exam Date/Time Accession # Ordering Echo Transthoracic 11/08/2023 15:28 EDT [id number] Adam SAMPSON, Alirio Hooper CPT code [id number] Reason for Exam (Echo Transthoracic Complete) I50.30;Other (please specify) Report [facility] [address] [id number] Adult Echocardiogram Report Name: CARMEN BLEDSOE Study Date: 11/08/2023 02:50 PM BP: 128/85 mmHg Patient Location: CD:[id number] [facility] HR: 66 : 1960 Gender: Female Height: 6 in Age: 62 yrs Ethnicity: T Weight: 328 lb Reason For Study: CHF BSA: 0.43 m2 History: High Cholesterol,HTN,Smoker-Yes,Morbid obesity Ordering Physician: Adam^Alirio^DFranco Referring Physician: Alirio Ramirez Performed By: Philomena [...] Signed by: Alirio Ramirez MD Transcribed by: [facility] Technologist: [facility]04-24-2024 Hospital Discharge instructions Patient Education [...] by your health care provider. Medicines Take hjad-cya-egxvvaq and prescription medicines only as told by [...] provider. Document Revised: 02/22/2022 Document Reviewed: 02/22/2022 [employer] Patient Education 2022 [employer]. 10/26/2023 08:53:45 Heart Failure, Self-Care Heart Failure, [...] when you have heart failure Medicines Take fzgu-nnx-raqlgrz and prescription medicines only as told by [...] provider. Document Revised: 09/28/2022 Document Reviewed: 01/10/2021 [employer] Patient Education 2022 [employer]AR. 10/26/2023 08:53:36 DASH Eating Plan DASH Eating [...] Dairy Whole or 2% milk, cream, and vjbb-aur-sfcs. Whole or full-fat cream cheese. Whole-fat or [...] more information National Heart, Lung, and Blood [place]: www.nhlbi.nih.gov [place] Heart Association: www.heart.org Academy of Nutrition and [...] provider. Document Revised: 05/23/2020 Document Reviewed: 05/23/2020 [employer] Patient Education 2022 [employer]AR. Follow Up Care 10/11/2023 15:08:26 With:Nigel SMITH, CAP SIZER-[place] VILLATORO Address: [address] [place] [phone] When:Within 1 Month(s) [facility] [place] 04-08-2024 Hospital Discharge instructions Patient Education 10/10/2023 [...] treat it right away. Always have a 60-ggjyfpkcm-ajyeni carbohydrate snack with you to treat low [...] you how to adjust your dosage. Take xile-iqf-vzenwnq and prescription medicines only as told by [...] your health care provider once every year. [place] your teeth and gums two times a [...] meet with a certified diabetes care and elementary education teacher? Where can I find a support group for people with diabetes? Where to find more information For help and guidance and for more information about diabetes, please visit: [place] Diabetes Association (ADA): www.diabetes.org [place] Association of Diabetes Care and Education Specialists [...] provider. Document Revised: 11/18/2021 Document Reviewed: 11/18/2021 [employer] Patient Education 2022 [employer]AR. 10/10/2023 07:17:21 Heart Failure Exacerbation Heart Failure [...] Follow these instructions at home: Medicines Take lpuk-itc-tdqrmgj and prescription medicines only as told by your health care provider. Do not stop taking your medicines or change the amount you take. If you are having problems or sideeffects from your medicines, talk to your health care provider. If you are having difficulty paying for your medicines, contact a medical social consultant or your clinic. There are many programs [...] provider. Document Revised: 09/28/2022 Document Reviewed: 01/10/2021 [employer] Patient Education 2022 [employer]. Follow Up Care 10/07/2023 10:35:27 With:Nigel MSN, CAP SIZER-PHOTO OFFSET PRINTER, [place] Address: [address] [place] [phone] When:Within 2 Week(s) Comments:[facility] + Plan note Diagnostic Tests Pending * CBC w/ Auto Diff 08/10/23 * Comprehensive Metabolic Panel 08/10/23 * HgbA1c 08/10/23 * Lipid Panel 08/10/23 * Microalbumin Level Urine 08/10/23 * D-Dimer 08/10/23 Future Scheduled Tests Laboratory* Vitamin D 25 Hydroxy 10/13/22 * Creatine Kinase 10/13/22 Radiology* US LE Venous Duplex Insufficiency Bilat 10/13/22 [facility] Hospital Discharge instructions Patient Education 08/09/2023 [...] pray, or go to a place of holiness. Do some deep breathing. To do this, [...] sugars, or salt (sodium). General instructions Take xyyx-yco-svjxuvt and prescription medicines only as told by [...] (ADAA): www.adaa.org Mental Health [place]: www.mentalhealthamerica.net National [place] on Mental Illness: www.param.org Contact a health [...] department or: Call your local emergency services (888 in the [place] Call a suicide crisis helpline, such as the National Suicide Prevention Lifeline at or 428 in the [place]. This is open 24 hours a day in the [place] Text the Crisis Text Line at 890553 (in the [place] Summary If you are [...] provider. Document Revised: 01/13/2022 Document Reviewed: 04/30/2020 [employer] Patient Education 2022 Mac[employer]AR. 08/09/2023 20:20:14 Hypertension, Adult Hypertension, Adult High [...] follow-up visits. This is important. Medicines Take yktm-lde-poovlxf and prescription medicines only as told by [...] provider. Document Revised: 04/27/2022 Document Reviewed: 04/27/2022 [employer] Patient Education 2022 [employer]AR. 08/09/2023 20:20:10 Type 2 Diabetes Mellitus, Self-Care, [...] treat it right away. Always have a 04-wnzdskeir-ikoiau carbohydrate snack with you to treat low [...] you how to adjust your dosage. Take ugrb-ovl-ekkszwc and prescription medicines only as told by [...] your health care provider once every year. [place] your teeth and gums two times a [...] meet with a certified diabetes care and elementary education teacher? Where can I find a support group for people with diabetes? Where to find more information For help and guidance and for more information about diabetes, please visit: [place] Diabetes Association (ADA): www.diabetes.org [place] Association of Diabetes Care and Education Specialists [...] provider. Document Revised: 11/18/2021 Document Reviewed: 11/18/2021 [employer] Patient Education 2022 [employer]. 08/09/2023 20:20:09 Health Risks of Smoking Health [...] Department of Health and Human Services: www.smokefree.gov [place] Lung Association: www.freedomfromsmoking.org [place] Heart Association: www.heart.org Where to find more [...] 06/22/2022 Document Reviewed: 06/22/2022 Elsevier Patient Education 2022 MacuCLEAR. 08/09/2023 20:20:08 DASH Eating Plan DASH Eating [...] Dairy Whole or 2% milk, cream, and bodl-bme-cvjx. Whole or full-fat cream cheese. Whole-fat or [...] more information National Heart, Lung, and Blood [place]: www.nhlbi.nih.gov [place] Heart Association: www.heart.org Academy of Nutrition and [...] provider. Document Revised: 05/23/2020 Document Reviewed: 05/23/2020 [employer] Patient Education 2022 [employer]. Follow Up Care 11/26/2022 13:53:51 With:Nigel SMITH, CAP SIZER-PHOTO OFFSET PRINTER, [place]. Address: [address] [place] [phone] When:Within 6 Month(s) Comments:chronic care [facility] Doc 01-18-2024 History of Present illness Narrative* Arlene Zuñiga - 07/21/2023 10:30 AM EST Occupational Therapy [facility] Date: 07/21/2023 Patient Name: Carmen Bledsoe DOB: 1960 Pt Cancelled Appt due to left voice mail with no reason for cancel. Arlene Zuñiga Date: 07/21/2023 [facility] History of Present illness Narrative* Lisseth Luu - 07/20/2023 3:00 PM EST Physical Therapy [facility] Date: 07/20/2023 Patient Name: Carmen Bledsoe DOB: 1960 Patient called to cancel Appt., did not state a reason for cancellation. Lisseth Luu Date: 07/20/2023 [facility] History of Present illness Narrative* Lisseth Luu - 07/14/2023 10:30 AM EST Physical Therapy [facility] Date: 07/14/2023 Patient Name: Carmen Bledsoe DOB: 1960 Patient called to cancel, did not give a reason. She said she will be at her next scheduled appointment on 07/19/23. Lisseth Bell Date: 07/14/2023 [facility] History of Present illness Narrative* Arlene Zuñiga - 07/08/2023 1:30 PM EST Occupational Therapy [facility] Date: 07/08/2023 Patient Name: Carmen Bledsoe : 1960 Pt Cancelled Appt due to no reason for cancel. Arlene Zuñiga Date: 07/08/2023 [facility] History of Present illness Narrative* Negra, Fariba S - 07/06/2023 10:30 AM EST Physical Therapy [facility] Date: 07/06/2023 Patient Name: Carmen Bledsoe : 1960 Patient is not able to a make this appointment, she rescheduled for tomorrow. Fariba S Shock Date: 07/06/2023 [facility] Hospital Discharge instructions Patient Education 05/09/2023 22:10:36 [...] back becomes more flexible: 1.Get into a ckkps-dnf-bdjsu position on a firm bed or the [...] provider. Document Revised: 12/15/2021 Document Reviewed: 09/02/2021 [employer] Patient Education 2022 [employer]. Follow Up Care 05/06/2023 08:05:37 With:Ansley Carrero PA-C Address: [address] [place] [phone] When: only if needed Comments:Only if needed [facility] Doc 10-23-2023 Hospital Discharge [...] Follow these instructions at home: Medicines Take wkxy-qae-fypogwq and prescription medicines only as told by your health care provider. Ask your health care provider if the medicine prescribed to you: ?Requires you to avoid driving or using heavy machinery. ?Can cause constipation. You may need to take these actions to prevent or treat constipation: ?Drink enough fluid to keep your urine pale yellow. ?Take vhwd-aue-lnzrypb or prescription medicines. ?Eat foods that are [...] provider. Document Revised: 07/09/2019 Document Reviewed: 07/09/2019 [employer] Patient Education 2022 Mac[employer]AR. 04/25/2023 19:33:56 Back Exercises Back Exercises The [...] back becomes more flexible: 1.Get into a uzgah-uld-khrqg position on a firm bed or the [...] provider. Document Revised: 12/15/2021 Document Reviewed: 09/02/2021 [employer] Patient Education 2022 [employer] Follow Up Care 04/21/2023 13:02:20 With:Nigel SMITH, CAP SIZER-IRVING, [place] Address: [address] [place] [phone] When: only if needed [facility] 09-14-2023 Hospital Discharge instructions Patient Education 03/17/2023 [...] treat it right away. Always have a 48-lmnowubgw-epdkwp carbohydrate snack with you to treat low [...] you how to adjust your dosage. Take csdl-tqc-kzuhdqf and prescription medicines only as told by [...] your health care provider once every year. [place] your teeth and gums two times a [...] meet with a certified diabetes care and elementary education teacher? Where can I find a support group for people with diabetes? Where to find more information For help and guidance and for more information about diabetes, please visit: [place] Diabetes Association (ADA): www.diabetes.org [place] Association of Diabetes Care and Education Specialists [...] provider. Document Revised: 11/18/2021 Document Reviewed: 11/18/2021 [employer] Patient Education 2022 [employer]. 03/17/2023 14:42:58 DASH Eating Plan DASH Eating [...] Dairy Whole or 2% milk, cream, and hahx-hgx-swhj. Whole or full-fat cream cheese. Whole-fat or sweetened yogurt. Full-fat cheese. Nondairy creamers. Whipped toppings. Processed cheese and cheese spreads. Fats and oils Butter. Stick margarine. Lard. Shortening. Ghee. [place] fat. Tropical oils, such as coconut, palm kernel, or palm oil. Seasonings and condiments Onion salt, garlic salt, seasoned salt, table salt, and sea salt. [facility] Hospitaltershire sauce. Tartar sauce. Barbecue sauce. Teriyaki sauce. [...] more information National Heart, Lung, and Blood [place]: www.nhlbi.nih.gov [place] Heart Association: www.heart.org Academy of Nutrition and [...] provider. Document Revised: 05/23/2020 Document Reviewed: 05/23/2020 [employer] Patient Education 2022 Mac[employer]CLEAR. 03/17/2023 14:42:56 Insomnia Insomnia Insomnia is a [...] go back to bed. General instructions Take ghma-nga-oytwfug and prescription medicines only as told by [...] the National Suicide Prevention Lifeline at or 373. This is open 24 hours a day. Text the Crisis Text Line at 949251. Summary Insomnia is a sleep disorder that [...] provider. Document Revised: 05/31/2022 Document Reviewed: 05/31/2022 [employer] Patient Education 2022 [employer] Follow Up Care 03/15/2023 07:59:17 With:Nigel SMITH, CAP SIZER-PHOTO OFFSET PRINTER, [place] Address: [address] [place] [phone] When: only if needed Comments:keep may appt, fax sleep study to Doc [facility] Doc 05-25-2023 Hospital Discharge instructions Patient Education 11/25/2022 [...] cheese. Low-sodium cottage cheese. Fats and oils [place], canola, soybean, flaxseed, avocado, or sunflower oil. Sweets and desserts Applesauce. Granola bars. Sugar-free pudding and gelatin. Frozen fruit bars. Seasoning and other foods Fresh and dried herbs. Lemon or igiugig juice. Vinegar. Low-sodium ketchup. Salt- free marinades, saladdressings, sauces, and seasonings. The items listed above may not be a complete list of foods and beverages you can eat. Contact a dietitian for more information. Foods to avoid Fruits Fruits that are dried with sodium-containing preservatives. Vegetables Canned vegetables. Frozen vegetables with sauce or seasonings. Creamed vegetables. [place] fries. Onion rings. Pickled vegetables and sauerkraut. [...] Salted nuts and seeds. Dairy Whole milk, opkl-yue-ifah, and cream. Buttermilk. Processed cheese, cheese spreads, [...] provider. Document Revised: 02/02/2021 Document Reviewed: 02/02/2021 [employer] Patient Education 2022 [employer]AR. 11/25/2022 15:14:21 DASH Eating Plan DASH Eating [...] Dairy Whole or 2% milk, cream, and pehh-bhq-teaw. Whole or full-fat cream cheese. Whole-fat or sweetened yogurt. Full-fat cheese. Nondairy creamers. Whipped toppings. Processed cheese and cheese spreads. Fats and oils Butter. Stick margarine. Lard. Shortening. Ghee. [place] fat. Tropical oils, such as coconut, palm kernel, or palm oil. Seasonings and condiments Onion salt, garlic salt, seasoned salt, table salt, and sea salt. [facility] Hospitaltershire sauce. Tartar sauce. Barbecue sauce. Teriyaki sauce. [...] more information National Heart, Lung, and Blood [place]: www.nhlbi.nih.gov [place] Heart Association: www.heart.org Academy of Nutrition and [...] provider. Document Revised: 05/23/2020 Document Reviewed: 05/23/2020 [employer] Patient Education 2022 [employer]. Follow Up Care 11/10/2022 07:47:50 With:Nigel SMITH, CAP SIZER-IRVING, [place] Address: [address] [place] [phone] When:Within 6 Month(s) Comments:chronic care [facility] Doc 04-12-2023 Hospital Discharge [...] when you have heart failure Medicines Take hbxb-xas-uyqokyw and prescription medicines only as told by [...] 10/03/2019 Document Revised: 10/02/2019 Document Reviewed: 10/03/2019 [employer] Patient Education 2020 [employer] Inc. 10/13/2022 08:14:26 Heart Failure Medicines Heart [...] 11/04/2017 Document Revised: 07/05/2018 Document Reviewed: 11/04/2017 [employer] Patient Education 2020 [employer]. 10/13/2022 08:14:22 Heart Failure Eating Plan Heart [...] lifestyle and working with a diet and multi media specialist (dietitian)to choose the right foods may [...] cheese. Low-sodium cottage cheese. Fats and oils [place], canola, soybean, flaxseed, or sunflower oil. Avocado. Sweets and desserts Apple sauce. Granola bars. Sugar-free pudding and gelatin. Frozen fruit bars. Seasoning and other foods Fresh and dried herbs. Lemon or igiugig juice. Vinegar. Low-sodium ketchup. Salt- free marinades, [...] vegetables with sauce or seasonings. Creamed vegetables. [place] fries. Onion rings. Pickled vegetables and sauerkraut. [...] Salted nuts and seeds. Dairy Whole milk, gunk-vvl-biam, and cream. Buttermilk. Processed cheese, cheese spreads, [...] and bouillon cubes. Horseradish, ketchup, and mustard. [facility] Hospitaltershire sauce. Teriyaki sauce, soy sauce (including [...] 11/04/2017 Document Revised: 08/16/2019 Document Reviewed: 11/04/2017 [employer] Patient Education 2020 Mac[employer]AR. 10/13/2022 08:14:21 Heart Failure and Exercise Heart [...] 11/01/2017 Document Revised: 11/04/2017 Document Reviewed: 11/01/2017 [employer] Patient Education 2020 [employer] 10/13/2022 08:14:18 Form - Daily Weight [...] 09/01/2007 Document Revised: 06/19/2018 Document Reviewed: 06/19/2018 [employer] Patient Education 2020 [employer]. Follow Up Care 09/29/2022 12:46:37 With:Carmen Haley DO Address: When:Within 1 Month(s) [facility]03-29-2023 Hospital Discharge instructions Patient Education 09/29/2022 [...] require a prescription and some youcan purchase pkbh-oal-ioimfep. Medicines may have nicotine in them to [...] for support and encouragement. Call telephone quitlines (9-862-WCYF-NOW), reach out to support groups, or work [...] 06/14/2002 Document Revised: 09/07/2019 Document Reviewed: 09/08/2019 [employer] Patient Education 2020 [employer]. 09/29/2022 12:38:01 Heart Failure Eating Plan Heart [...] lifestyle and working with a diet and multi media specialist (dietitian)to choose the right foods may [...] cheese. Low-sodium cottage cheese. Fats and oils [place], canola, soybean, flaxseed, or sunflower oil. Avocado. Sweets and desserts Apple sauce. Granola bars. Sugar-free pudding and gelatin. Frozen fruit bars. Seasoning and other foods Fresh and dried herbs. Lemon or igiugig juice. Vinegar. Low-sodium ketchup. Salt- free marinades, [...] vegetables with sauce or seasonings. Creamed vegetables. [place] fries. Onion rings. Pickled vegetables and sauerkraut. [...] Salted nuts and seeds. Dairy Whole milk, mhlh-hpf-czak, and cream. Buttermilk. Processed cheese, cheese spreads, [...] 11/04/2017 Document Revised: 08/16/2019 Document Reviewed: 11/04/2017 [employer] Patient Education 2020 [employer]. 09/29/2022 12:37:57 Form - Daily Weight Record [...] Date: Weight: Date: Weight: Date: Weight: Date: ____ Weight: This information is not intended to replace advice given to you by your health care provider. Make sure you discuss any questions you have with your health care provider. Document Released: 09/01/2007 Document Revised: 06/19/2018 Document Reviewed: 06/19/2018 [employer] Patient Education 2019 [employer]. Follow Up Care 09/22/2022 10:08:32 With:Carmen Haley DO Address: When:Within 2 Week(s) [facility]03-24-2023 Hospital Discharge instructions Patient Education 09/24/2022 [...] 06/22/2004 Document Revised: 04/13/2019 Document Reviewed: 11/29/2016 [employer] Patient Education 2019 [employer]. Follow Up Care 09/13/2022 14:16:08 With:Nigel SMITH, CAP SIZER-IRVING, [place] Address: [address] [place] [phone] When: Unknown Comments:see nurse for Dr Haley's lab Tuesday. Next primary care visit in November [facility] Doc 03-22-2023 Hospital Discharge instructions Patient Education 09/22/2022 [...] 06/20/2006 Document Revised: 09/07/2019 Document Reviewed: 09/07/2019 [employer] Patient Education 2020 [employer]. 09/22/2022 09:54:51 Heart Failure Medicines Heart Failure [...] 11/04/2017 Document Revised: 07/05/2018 Document Reviewed: 11/04/2017 [employer] Patient Education 2020 [employer]. 09/22/2022 09:54:49 Heart Failure Eating Plan Heart [...] lifestyle and working with a diet and multi media specialist (dietitian)to choose the right foods may [...] cheese. Low-sodium cottage cheese. Fats and oils [place], canola, soybean, flaxseed, or sunflower oil. Avocado. Sweets and desserts Apple sauce. Granola bars. Sugar-free pudding and gelatin. Frozen fruit bars. Seasoning and other foods Fresh and dried herbs. Lemon or igiugig juice. Vinegar. Low-sodium ketchup. Salt- free marinades, [...] vegetables with sauce or seasonings. Creamed vegetables. North Korean fries. Onion rings. Pickled vegetables and sauerkraut. [...] Salted nuts and seeds. Dairy Whole milk, mwht-srx-xlds, and cream. Buttermilk. Processed cheese, cheese spreads, [...] 11/04/2017 Document Revised: 08/16/2019 Document Reviewed: 11/04/2017 [employer] Patient Education 2020 Macu[employer]AR. 09/22/2022 09:54:44 Heart Failure Action Plan Heart [...] symptoms. Follow these instructions at home: Take wykm-mbp-lldsvqk and prescription medicines only as told by your health care provider. Weigh yourself daily. Your target weight is lb ( kg). ?Call your health care provider if you gain more than lb ( kg) in a day, or more than lb ( kg) in one week. Eat a heart-healthy diet. Work with a diet and multi media specialist (dietitian) to create an eatingplan that is best for you. Keep all follow-up visits as told by your health care provider. This is important. Where to find more information [place] [employer]: www.heart.org Summary Follow the action [...] 07/30/2017 Document Revised: 06/02/2018 Document Reviewed: 07/30/2017 [employer] Patient Education 2020 MacuCLEAR. 09/22/2022 09:53:36 Pulmonary Edema Pulmonary Edema Pulmonary [...] Follow these instructions at home: Medicines Take xedm-rkc-jcgqzxo and prescription medicines only as told by [...] infections or injury to the lungs. Take orgm-sjp-bbtpvsl and prescription medicines only as told by your health care provider. This information is not intended to replace advice given to you by your health care provider. Make sure you discuss any questions you have with your health care provider. Document Released: 09/10/2003 Document Revised: 06/02/2018 Document Reviewed: 08/31/2017 [employer] Patient Education 2020 MacuCLEAR. 09/22/2022 09:53:16 Steps to Quit Smoking Steps [...] require a prescription and some youcan purchase vmnh-lzq-mjimrwp. Medicines may have nicotine in them to [...] for support and encouragement. Call telephone quitlines (7-590-XTEH-NOW), reach out to support groups, or work [...] 06/14/2002 Document Revised: 09/07/2019 Document Reviewed: 09/08/2019 [employer] Patient Education 2020 MacuCLEAR. 09/22/2022 09:53:10 Health Risks of Smoking Health [...] these methods. Where to find more information [place] [employer]: www.lung.org [place] [employer]: www.cancer.org Summary Smoking cigarettes is [...] 07/28/2005 Document Revised: 09/21/2018 Document Reviewed: 06/24/2017 [employer] Patient Education 2020 MacuCLEAR. 09/22/2022 09:52:53 Cooking With Less Salt Cooking With Less Salt Cooking with less salt is one way to reduce the amount of sodium you get from food. Depending on your condition and overall health, your health care provider or diet and multi media specialist (dietitian) may recommend that you reduce [...] foods. Use sodium-free baking soda when baking. Goss, braise, or roast foods to add flavor [...] foods you can pair it with. Herbs [place] leaves Soups, meat and vegetable dishes, and spaghetti sauce. Basil Wolof dishes, soups, pasta, and fish dishes. Cilantro Meat, poultry, and vegetable dishes. [place] powder Marinades and Israeli dishes. Chives Salad dressings and potato dishes. Cumin Israeli dishes, couscous, and meat dishes. Dill Fish dishes, sauces, and salads. Fennel Meat and vegetable dishes, breads, and cookies. Garlic (do not use garlic salt) Wolof dishes, meat dishes, salad dressings, and sauces. Marjoram Soups, potato dishes, and meat dishes. Oregano Pizza and spaghetti sauce. Parsley Salads, soups, pasta, and meat dishes. Zakia Wolof dishes, salad dressings, soups, and red meats. [...] Vegetable dishes, fish and poultry dishes, and stir-hogdes dishes. Kristy Vegetables dishes, fish dishes, and [...] and low-sodium cheeses. Good cheese choices include Czech, [place] Kameron, and mozzarella. Always check the label [...] 06/20/2006 Document Revised: 06/02/2018 Document Reviewed: 06/28/2017 [employer] Patient Education 2020 MacuCLEAR. 09/22/2022 09:52:44 BMI for Adults BMI for [...] height. This can be done either in [place] ([place] or metric measurements. Note that charts are available to help you find your BMI quickly and easily without having to do these calculations yourself. To calculate your BMI in [place] measurements, your health care provider [...] medical problems. BMI can be measured using [place] measurements or metric measurements. To interpret [...] 03/01/2005 Document Revised: 06/02/2018 Document Reviewed: 05/03/2018 [employer] Patient Education [employer] [place] Follow Up Care 09/17/2022 09:26:53 With:Carmen Haley DO Address: When:09/29/2022 [facility]03-13-2023 Progress note Author José Sanchez [facility] September 13, 2022 9:31pmNote Date/TimeMarch 2022 9:[place] [address] Hospitalist Progress Note Signed Patient: Carmen Bledsoe MR#: [id number] : 1960 Acct:[id number] Age/Sex: 61 / F Adm Date: 3 Loc: Room: [address] [place] [address] Type: ADM IN Attending Dr: José Sanchez [...] <Electronically signed by José Sanchez MD> 09/13/222130 [facility] Work Phone: 1(632) 661-908303-12-2023 Progress note Author Marilyn Sun [facility] September 12, 2022 12:22pmNote Date/TimeMarch 2022 12:13[place] [address] Hospitalist Progress Note Signed Patient: Carmen Bledsoe MR#: [id number] : 1960 Acct:[id number] Age/Sex: 61 / F Adm Date: 3 Loc: 4 Room: [address] [place] [address] Type: ADM IN Attending Dr: Marilyn Sun [...] signed by Marilyn Sun MD> 09/12/22 1222 [facility] Work Phone: 1(355) 407-279703-11-2023 History and physical note Author Marilyn Sun [facility] September 11, 2022 11:38amNote Date/TimeMarch 2022 1:36pmSoso[place] [address] Hospitalist H&P Signed with Addenda Patient: Carmen Bledsoe MR#: [id number] : 1960 Acct:[id number] Age/Sex: 61 / F Adm Date: 3 Loc: 4N Room: [address] [place] [address] Type: ADM IN Attending Dr: Marilyn uSn MD Copies to: NON STAFF Marilyn Sun [...] Values Corrected WBC 5.2 X10E3/uL (3.8-11.6) 09/10/22 11: Uncorrected WBC Count 5.2 x10E3/uL (3.8-11.6) 09/10/22 11: RBC 3.92 X10E6/uL (3.60-5.00) 09/10/22 11: Hgb 12.5 g/dL (11.8-15.4) 09/10/22 11: Hct 37.7 % (34.0-46.4) 09/10/22 11: MCV 96.1 fl (80-100) 09/10/22 11: MCH 31.8 pg (24.7-34.3) 09/10/22 11: MCHC 33.1 g/dL (32.0-35.0) 09/10/22 11: RDW 17.5 % (11.9-15.3) H 09/10/22 11: Plt Count 180 x10E3/uL (150-450) 09/10/22 11: MPV 7.2 fl (6.3-10.7) 09/10/22 11: Neut % (Auto) 70.7 % (.) 09/10/22 11: Lymph % (Auto) 21.5 % (.) 09/10/22 11: Hawkins % (Auto) 5.1 % (.) 09/10/22 11: Eos % (Auto) 1.6 % (.) 09/10/22 11: Baso % (Auto) 1.1 % (.) 09/10/22 11: Nucleat RBC Rel Count 0.3 /100 WBC (0-0.5) 09/10/22 11: Neut # (Auto) 3.7 x10E3/uL (1.8-7.7) 09/10/22 11: Lymph # (Auto) 1.1 x10E3/uL (1.00-4.8) 09/10/22 11: Hawkins # (Auto) 0.3 x10E3/uL (0.0-0.8) 09/10/22 11: Eos # (Auto) 0.1 x10E3/uL (0.0-0.45) 09/10/22 11:26 Baso # (Auto) 0.1 x10E3/uL (0.0-0.2) 09/10/22 11:26 Monocyte Dist Width 18.14 % (0.00-20.00) 09/10/22 11:26 PT 11.8 Seconds (9.0-12.9) 09/10/22 11:26 INR 1.0 09/10/22 11:26 APTT 31.2 Seconds (25.1-36.5) 09/10/22 11:26 PHA [...] signed by Marilyn Sun MD> 09/10/22 1541 [facility] Work Phone: 1(762) [phone] Progress note Author Marilyn Sun [facility] September 11, 2022 11:36amNote Date/TimeMar2022 11:07[place] [address] Hospitalist Progress Note Signed Patient: Carmen Bledsoe MR#: [id number] : 1960 Acct:[id number] Age/Sex: 61 / F Adm Date: 3 Loc: 4N Room: [address] [place] [address] Type: ADM IN Attending Dr: Marilyn Sun [...] agreement with the plan. Will transfer to [facility] for now. Marilyn Escobedo MD Internal Medicine Hospitalist Attending Physician Documented By: Marilyn Sun MD 09/11/22 11 04 Signed By: <Electronically signed by Marilyn Sun MD> 09/11/22 7458 [facility] Work Phone: 1(359) 611-700303-06-2023 Hospital Discharge instructions Patient Education 09/06/2022 12:23:58 [...] hospital. Follow these instructions at home: Take swtz-khr-srzcdhr and prescription medicines only as told by [...] cantaloupe, kiwi, oranges, tomatoes, asparagus, and potatoes. ?[place] juice. ?Tomato juice. ?Red meats. ?Yogurt. Keep [...] 06/20/2006 Document Revised: 01/31/2019 Document Reviewed: 01/31/2019 [employer] Patient Education 2020 MacuCLEAR. Follow Up Care 08/23/2022 15:13:00 With:Nigel SMITH, CAP SIZER-PHOTO OFFSET PRINTER, Paris Hamilton Address: [address] [place] [phone] When: Unknown Comments:telephone result to maribel. See referrals [facility] Medicine Doc 02-09-2023 Hospital Discharge [...] plan? Your health care provider or certified nurses aide can help you make a plan for [...] stress. Your health care provider or certified nurses aide can help you make a plan for [...] 09/09/2004 Document Revised: 01/12/2018 Document Reviewed: 11/29/2016 [employer] Patient Education 2020 MacuCLEAR. Follow Up Care 08/12/2022 10:06:58 With:Nigel SMITH, CAP SIZER-Paris VILLATORO Address: [address] [place] [phone] When: Unknown Comments:Echo order for Doc. Telephone result to patient [facility] Doc 06-29-2022 Hospital Discharge [...] of hard liquor (1 oz). Medicines Take pqxq-qix-evtrnqz and prescription medicines only as told by [...] Centers for Disease Control and Prevention: www.cdc.gov/heartdisease [place] Heart Association: www.heart.org ?Take a free online [...] 02/01/2005 Document Revised: 07/05/2018 Document Reviewed: 07/05/2018 [employer] Patient Education 2020 MacuCLEAR. Follow Up Care 12/24/2021 08:31:22 With:Parish PATE Address: [address] [place], [place] [id number]- When:Within 6 Month(s) [facility] Doc 01-10-2022 History of [...] BMR: 2209 calories Est. total calorie needs: ~0474-3933 Client overall goal for weight is for [...] pizza, or consume foods from community, including trinidadian food or fast foods. Has not been [...] the referral. Education session duration: 60 minutes; ([id number]). Reminder to ordering Physician/Provider: Diabetes and CKD (non-dialysis) patients may have 2 hours of MNT education in subsequent years. Hours can be spread over any number of visits. documented in this [facility] Phone: 1(217) 816-986301-06-2022 History of Present illness Narrative* Sarah Salmon [...] Carmen Bledsoe Referring Provider: DARLEEN Bernardo NP [place] to learning: Considerations: []Language []Emotional []Health Literacy []Cognitive []Memory changes []Financial []Cultural []Restorationist []Vision []Hearing []Speech []Lack of desire []Literacy [...] the relationship of blood glucose levels to long-term complications of diabetes.Identify preventative measures and standard [...] ) ADA website: Http://www.diabetes.org ( ) Http: //www.MICMALI.com/-russ/faq.htm ( ) Diabetes Forecast [place] you may get this information on the ADA web site. ( ) Diabetes Interview - [place] ( ) Diabetes Self Management (bi-monthly magazine) ( x ) Support group: Doc tuesday of the month at 9 am ( ) Health Journeys Image Paths (relaxation tapes for people with Diabetes) ( ) Your suggestions: Sarah Salmon RN [facility] Diabetes clinic educator 07/09/2021 10:17 AM documented in this [facility] Work Phone: 1(420) 104-303712-30-2021 History of Present illness Narrative* Sarah Salmon [...] States I haven't been trying because of [place]. She continues to eats 2 main meals [...] Carmen Bledsoe Referring Provider: DARLEEN Bernardo NP [place] to learning: Considerations: []Language []Emotional []Health Literacy []Cognitive []Memory changes []Financial []Cultural []Restorationist []Vision []Hearing []Speech []Lack of desire []Literacy [...] the relationship of blood glucose levels to long-term complications of diabetes.Identify preventative measures and standard [...] ) ADA website: Http://www.diabetes.org ( ) Http: //www.Miradia/-russ/faq.htm ( ) Diabetes Forecast [place] you may get this information on the ADA web site. ( ) Diabetes Interview - [place] ( ) Diabetes Self Management (bi-monthly magazine) ( x ) Support group: Doc third Tuesday of the month at 9 am ( ) Health Journeys Image Paths (relaxation tapes for people with Diabetes) ( ) Your suggestions: Sarah Salmon RN [facility] 07/02/2021 10:41 AM documented in this [facility] Work Phone: evaluation + Plan note Future Appointments Appointment Date:07/09/2022 11:00:00 AM Scheduled Provider:Parish PATE Location:[facility] Doc Appointment Type:[facility] Doc [facility] Plan note Future Appointments Appointment Date:09/24/2022 02:40:00 PM Scheduled Provider:Lupis SCHWARTZ MD, FAAFP Location:[facility] Appointment Type: ER/Hospital Follow Up Appointment Date:09/29/2022 11:30:00 AM Scheduled Provider:Carmen Haley DO [facility] Type:Cardiology Follow Up (FT) Future Scheduled Tests Laboratory* B-Type Natriuretic Peptide 09/22/22 * Basic Metabolic Panel 09/22/22 * Basic Metabolic Panel 09/22/22 Radiology* NM Myocardial Spect Rest/Stress 2 Day 09[facility]22/[facility] Future Appointments Appointment Date:09/27/2022 10:40:00 AM Scheduled Provider: Location:[facility] Appointment Type: Nurse Visit Appointment Date:09/29/2022 11:30:00 AM Scheduled Provider:Carmen Haley DO [facility] Appointment Type:Cardiology Follow Up (FT) Appointment Date:11/26/2022 02:40:00 PM Scheduled Provider:SRINIVAS Pereyra Tammy L. Location:[facility] Appointment Type: Open Future Scheduled Tests Laboratory* B-Type Natriuretic Peptide 09/22/22 * Basic Metabolic Panel 09/22/22 * Basic Metabolic Panel 09/22/22 Radiology* NM Myocardial Spect Rest/Stress 2 Day 09/22/22 [facility] Evaluation + Plan note Future Appointments Appointment Date:09/29/2022 11:30:00 AM Scheduled Provider:Carmen Haley DO Location:[facility] Appointment Type:Cardiology Follow Up (FT) Appointment Date:11/26/2022 02:40:00 PM Scheduled Provider:SRINIVAS Pereyra Tammy L. Location:[facility] Appointment Type: Open Future Scheduled Tests Laboratory* Basic Metabolic Panel 09/22/22 Radiology* NM Myocardial Spect Rest/Stress 2 Day 09/22/22 [facility] Evaluation + Plan note Future Appointments Appointment Date:09/29/2022 11:30:00 AM Scheduled Provider:Carmen Haley DO [facility] Appointment Type:Cardiology Follow Up (FT) Appointment Date:11/26/2022 02:40:00 PM Scheduled Provider:Nigel SMITH, Paris ESPINO Location:[facility] Appointment Type:FM Open Diagnostic Tests Pending * Basic Metabolic Panel 09/27/22 Future Scheduled Tests Laboratory* Basic Metabolic Panel 09/22/22 Radiology* NM Myocardial Spect Rest/Stress 2 Day 09/22/22 [facility] Future Appointments Appointment Date:10/13/2022 09:00:00 AM Scheduled Provider:Carmen Haley DO [facility] Appointment Type:Cardiology Follow Up (FT) Appointment Date:10/18/2022 01:40:00 PM Scheduled Provider:Lupis SCHWARTZ MD, FAAFP Location:[facility] Appointment Type:FM Open Appointment Date:11/26/2022 02:40:00 PM Scheduled Provider:Nigel SMITH, Paris ESPINO Location:[facility] Appointment Type: Open Future Scheduled Tests Laboratory* Basic Metabolic Panel 09/22/22 Radiology* NM Myocardial Spect Rest/Stress 2 Day 09/22/22 [facility] Future Appointments Appointment Date:10/13/2022 09:00:00 AM Scheduled Provider:Carmen Haley DO [facility] Appointment Type:Cardiology Follow Up (FT) Appointment Date:10/18/2022 01:40:00 PM Scheduled Provider:Lupis SCHWARTZ MD, FAAFP Location:[facility] Appointment Type:FM Open Appointment Date:10/19/2022 02:00:00 PM Scheduled Provider: [facility] Appoint[facility] Type:CV EKG (FT) Appointment Date:10/19/2022 02:30:00 PM Scheduled Provider: Location[facility] Appointment Type:NM Myocard Spect Multi Rest/Stress-Res Appointment Date:10/19/2022 03:30:00 PM Scheduled Provider: [facility] Appointment Type:NM Myocard Spect Multi Rest/Stress - R Appointment Date:10/20/2022 02:30:00 PM Scheduled Provider: Location[facility] Appointment Type:NM Myocard Spect MultiRest/Stress-Stre Appointment Date:10/20/2022 03:30:00 PM Scheduled Provider: Location[facility] Appointment Type:NM Myocard Spect Multi Rest/Stress - S Appointment Date:11/26/2022 02:40:00 PM Scheduled Provider:SRINIVAS Pereyra Tammy L. Location:[facility] Appointment Type: Open Future Scheduled Tests Radiology* NM Myocardial Spect Rest/Stress 2 Day 10/19/22 [facility] [place] Evaluation + Plan note Future Appointments Appointment Date:10/18/2022 01:40:00 PM Scheduled Provider:Lupis SCHWARTZ MD, FAAFP Location:[facility] Appointment Type:FM Open Appointment Date:10/19/2022 02:00:00 PM Scheduled Provider: [facility] Type:CV EKG () Appointment Date:10/19/2022 02:30:00 PM Scheduled Provider: [facility] Appointment Type:NM Myocard Spect Multi Rest/Stress-Res Appointment Date:10/19/2022 03:30:00 PM Scheduled Provider: [facility] Appointment Type:NM Myocard Spect Multi Rest/Stress - R Appointment Date:10/20/2022 02:30:00 PM Scheduled Provider: Location[facility] Appointment Type:NM Myocard Spect MultiRest/Stress-Stre Appointment Date:10/20/2022 03:30:00 PM Scheduled Provider: [facility] Appointment Type:NM Myocard Spect Multi Rest/Stress - S Appointment Date:11/26/2022 02:40:00 PM Scheduled Provider:SRINIVAS Pereyra Tammy L. Location:[facility] Appointment Type: Open Future Scheduled Tests Laboratory* Vitamin D 25 Hydroxy 10/13/22 * Creatine Kinase 10/13/22 Radiology* US LE Venous Duplex Insufficiency Bilat 10/13/22 * US PVR Lower EXT Complete Bilat 10/13/22 * NM Myocardial Spect Rest/Stress 2 Day 10/19/22 [facility] Future Appointments Appointment Date:05/30/2023 02:00:00 PM Scheduled Provider:SRINIVAS Pereyra Tammy L. Location:[facility] Appointment Type: Open Future Scheduled Tests Laboratory* Vitamin D 25 Hydroxy 10/13/22 * Creatine Kinase 10/13/22 Radiology* US LE Venous Duplex Insufficiency Bilat 10/13/22 [facility] Evaluation + Plan note Future Appointments Appointment Date:04/26/2023 10:00:00 AM Scheduled Provider:Alirio Ramirez MD [facility] [place] Appointment Type:Cardiology Follow Up (FT) Appointment Date:05/30/2023 02:00:00 PM Scheduled Provider:SRINIVAS Pereyra Tammy L. Location:[facility] Appointment Type: Open Future Scheduled Tests Laboratory* Vitamin D 25 Hydroxy 10/13/22 * Creatine Kinase 10/13/22 Radiology* US LE Venous Duplex Insufficiency Bilat 10/13/22 * US PVR Lower EXT Complete Bilat 01/11/23 [facility] Future Appointments Appointment Date:05/09/2023 01:00:00 PM Scheduled Provider: [facility] Appointment Type:US Duplex Procedures (FT) Appointment Date:05/30/2023 02:00:00 PM Scheduled Provider:SRINIVAS Pereyra Tammy L. Location:[facility] Appointment Type: Open Future Scheduled Tests Laboratory* Vitamin D 25 Hydroxy 10/13/22 * Creatine Kinase 10/13/22 Radiology* US PVR w/ Exercise 05/09/23 * US LE Venous Duplex Insufficiency Bilat 10/13/22 [facility] Evaluation + Plan note Future Appointments Appointment Date:07/25/2023 02:00:00 PM Scheduled Provider:SRINIVAS Pereyra Tammy L. Location:[facility] Appointment Type: Open Future Scheduled Tests Laboratory* Vitamin D 25 Hydroxy 10/13/22 * Creatine Kinase 10/13/22 Radiology* US LE Venous Duplex Insufficiency Bilat 10/13/22 [facility] Future Appointments Appointment Date:10/25/2023 03:00:00 PM Scheduled Provider:Alirio Ramirez MD [facility] Appointment Type:Cardiology Follow Up (FT) Appointment Date:10/26/2023 01:20:00 PM Scheduled Provider:SRINIVAS Pereyra Tammy L. [facility] Type:FM Open Appointment Date:11/02/2023 10:30:00 AM Scheduled Provider:Walker Phillip MD Location:[facility] Appointment Type:[facility] New Patient Future Scheduled Tests Laboratory* Vitamin D 25 Hydroxy 10/13/22 * Creatine Kinase 10/13/22 Radiology* US LE Venous Duplex Insufficiency Bilat 10/13/22 [facility] [place] Evaluation + Plan note Future Appointments Appointment Date:10/26/2023 01:20:00 PM Scheduled Provider:SRINIVAS Pereyra Tammy L. Location:[facility] Appointment Type: Open Appointment Date:11/02/2023 10:30:00 AM Scheduled Provider:Walker Phillip MD Location:[facility] Appointment Type:[facility] New Patient Appointment Date:11/10/2023 03:00:00 PM Scheduled Provider: [facility] Type:FM Nurse Visit Appointment Date:12/06/2023 03:15:00 PM Scheduled Provider:Alirio Ramirez MD [facility] Appointment Type:Cardiology Follow Up (FT) Future Scheduled Tests Laboratory* B-Type Natriuretic Peptide 10/25/23 * Basic Metabolic Panel 10/25/23 Radiology* Echo Transthoracic Complete 10/25/23 [facility] Future Appointments Appointment Date:11/02/2023 10:30:00 AM Scheduled Provider:Walker Phillip MD Location:[facility] Appointment Type:[facility] New Patient Appointment Date:11/08/2023 03:00:00 PM Scheduled Provider: [facility] [place] Appointment Type:CV Echo (FT) Appointment Date:11/10/2023 03:00:00 PM Scheduled Provider: Location:[facility] Appointment Type:FM Nurse Visit Appointment Date:11/25/2023 02:40:00 PM Scheduled Provider:SRINIVAS Pereyra Tammy L. Location:[facility] Appointment Type:FM Open Appointment Date:12/06/2023 03:15:00 PM Scheduled Provider:Alirio Ramirez MD [facility] Appointment Type:Cardiology Follow Up (FT) Future Scheduled Tests Laboratory* B-Type Natriuretic Peptide 10/25/23 * Basic Metabolic Panel 10/25/23 Radiology* Echo Transthoracic Complete 11/08/23 [facility] [place] Evaluation + Plan note Future Appointments Appointment Date:11/08/2023 03:00:00 PM Scheduled Provider: [facility] [place] Appointment Type:CV Echo (FT) Appointment Date:11/10/2023 03:00:00 PM Scheduled Provider: Location:[facility] Appointment Type:FM Nurse Visit Appointment Date:11/25/2023 02:40:00 PM Scheduled Provider:SRINIVAS Pereyra Tammy L. Location:[facility] Appointment Type: Open Appointment Date:12/06/2023 03:15:00 PM Scheduled Provider:Alirio Ramirez MD [facility] Appointment Type:Cardiology Follow Up (FT) Appointment Date:12/23/2023 10:30:00 AM Scheduled Provider: Location:[facility] Appointment Type:Surgery FT Appointment Date:12/23/2023 12:00:00 PM Scheduled Provider: Location:[facility] Appointment Type:Surgery FT Appointment Date:01/13/2024 10:45:00 AM Scheduled Provider:Walker Phillip MD Location:[facility] Appointment Type:BADH Follow Up Future Scheduled Tests Laboratory* Hep B Core Ab, Tot 11/02/23 * Taoua-9-Rftjlsghmyz 11/02/23 * B-Type Natriuretic Peptide 10/25/23 * [...] PT 11/02/23 Radiology* Echo Transthoracic Complete 11/08/23 [facility] Evaluation + Plan note Future Appointments Appointment Date:11/10/2023 03:00:00 PM Scheduled Provider: Location:[facility] Appointment Type: Nurse Visit Appointment Date:11/25/2023 02:40:00 PM Scheduled Provider:Nigel MSN, CAP SIZER-PHOTO OFFSET PRINTER, [place] Location:[facility] Appointment Type:FM Open Appointment Date:12/06/2023 03:15:00 PM Scheduled Provider:Adam SAMPSON, Alirio Hooper [facility] [place] Appointment Type:Cardiology Follow Up (FT) Appointment Date:12/23/2023 10:30:00 AM Scheduled Provider: Location:[facility] Appointment Type:Surgery FT Appointment Date:12/23/2023 12:00:00 PM Scheduled Provider: Location:[facility] Appointment Type:Surgery FT Appointment Date:01/13/2024 10:45:00 AM Scheduled Provider:Walker Phillip MD Location:[facility] Appointment Type:[facility] Follow Up Future Scheduled Tests Laboratory* Hep B Core Ab, Tot 11/02/23 * Shjvr-6-Rsfmhvijjvc 11/02/23 * B-Type Natriuretic Peptide 10/25/23 * [...] Level 11/02/23 * [facility] App[facility]ments Appointment Date:12/06/2023 03:15:00 PM Scheduled Provider:Adam SAMPSON, Alirio Hooper [facility] [place] Appointment Type:Cardiology Follow Up (FT) Appointment Date:12/23/2023 10:30:00 AM Scheduled Provider: Location:[facility] Appointment Type:Surgery FT Appointment Date:12/23/2023 12:00:00 PM Scheduled Provider: Location:[facility] Appointment Type:Surgery FT Appointment Date:01/13/2024 10:45:00 AM Scheduled Provider:Walker Phillip MD Location:[facility] Appointment Type:BADH Follow Up Appointment Date:02/22/2024 01:20:00 PM Scheduled Provider:Nigel SMITH, CAP SIZER-PHOTO OFFSET PRINTER, [place] Location:[facility] Appointment Type: Open [facility] Scheduled Tests Laboratory* Hep B Core Ab, Tot 11/02/23 * Jnkfw-7-Amupgsezaok 11/02/23 * B-Type Natriuretic Peptide 10/25/23 * [...] * Iron Level 11/02/23 * PT 11/02/23 [facility] Doc Evaluation + Plan note Future Appointments Appointment Date:12/23/2023 10:30:00 AM Scheduled Provider: Location:[facility] Appointment Type:Surgery FT Appointment Date:12/23/2023 12:00:00 PM Scheduled Provider: Location:[facility] Appointment Type:Surgery FT Appointment Date:01/13/2024 10:45:00 AM Scheduled Provider:Walker Phillip MD Location:[facility] Appointment Type:BADH Follow Up Appointment Date:02/22/2024 01:20:00 PM Scheduled Provider:Nigel SMITH, [place] ESPINO Location:[facility] Appointment Type: Open Appointment Date:06/05/2024 01:00:00 PM Scheduled Provider:Alirio Ramirez MD [facility] Appointment Type:Cardiology Follow Up (FT) Future Scheduled Tests Laboratory* Hep B Core Ab, Tot 11/02/23 * Ndypg-1-Zhpiktwknhn 11/02/23 * B-Type Natriuretic Peptide 10/25/23 * [...] Level 11/02/23 * PT [facility]02/23 [facility] Future Appointments Appointment Date:02/22/2024 01:20:00 PM Scheduled Provider:Nigel SMITH, SRINIVAS, [place] Location:[facility] Appointment Type: Open Appointment Date:06/05/2024 01:00:00 PM Scheduled Provider:Alirio Ramirez MD [facility] Appointment Type:Cardiology Follow Up (FT) Future Scheduled Tests Laboratory* Hep B Core Ab, Tot 11/02/23 * Eyytt-2-Vvwrsanpnge 11/02/23 * B-Type Natriuretic Peptide 10/25/23 * [...] * Iron Level 11/02/23 * PT 11/02/23 [facility] Evaluation + Plan note Future Appointments Appointment Date:06/05/2024 01:00:00 PM Scheduled Provider:Adam SAMPSON, Alirio Hooper [facility] [place] Appointment Type:Cardiology Follow Up (FT) Appointment Date:08/29/2024 01:00:00 PM Scheduled Provider:Nigel SMITH, CAP SIZER-PHOTO OFFSET PRINTER, [place] Location:[facility] Doc Appointment Type: Open Appointment Date:08/31/2024 11:00:00 AM Scheduled Provider: Location:[facility] Appointment Type:Surgery FT Future Scheduled Tests Laboratory* Hep B Core Ab, Tot 11/02/23 * Gwxwi-0-Duyduvvrobv 11/02/23 * B-Type Natriuretic Peptide 10/25/23 * [...] * Iron Level 11/02/23 * PT 11/02/23 [facility] [place] Evaluation + Plan note Future Appointments Appointment Date:08/29/2024 01:00:00 PM Scheduled Provider:Nigel SMITH, CAP SIZER-IRVING, [place] [facility] App[facility] Type: Open Appointment Date:08/31/2024 11:00:00 AM Scheduled Provider: Location:[facility] Appointment Type:Surgery FT Appointment Date:12/18/2024 11:00:00 AM Scheduled Provider:Rick Hernandez PA-C [facility] Appointment Type:Cardiology Follow Up (FT) Future Scheduled Tests Laboratory* Hep B Core Ab, Tot 11/02/23 * Utyvm-9-Vlicldhpbto 11/02/23 * B-Type Natriuretic Peptide 10/25/23 * [...] Level 11/02/23 * PT 11/02/23 [facility] Evaluation + Plan note Future Appointments Appointment Date:07/13/2024 11:00:00 AM Scheduled Provider: [facility] Appoint[facility] Type: Nurse Visit Appointment Date:07/18/2024 12:00:00 PM Scheduled Provider:SRINIVAS Pereyra Tammy L. [facility] Appoint[facility] Type: Open Appointment Date:08/29/2024 01:00:00 PM Scheduled Provider:SRINIVAS Pereyra Tammy L. Location:[facility] Appointment Type: Open Appointment Date:08/31/2024 11:00:00 AM Scheduled Provider: Location:[facility] Appointment Type:Surgery FT Appointment Date:12/18/2024 11:00:00 AM Scheduled Provider:Rick Hernandez PA-C [facility] Appointment Type:Cardiology Follow Up (FT) Future Scheduled Tests Laboratory* Hep B Core Ab, Tot 11/02/23 * HgbA1c 07/11/24 * Tdtur-5-Fzoqhsqbmdz 11/02/23 * B-Type Natriuretic Peptide 07/11/24 * [...] PT 11/02/23 * Vitamin B12 Level 07/11/24 [facility] [place] Evaluation + Plan note Future Appointments Appointment Date:07/18/2024 12:00:00 PM Scheduled Provider:Nigel SMITH, CAP SIZER-PHOTO OFFSET PRINTER, [place] Location:[facility] Appointment Type: Open Appointment Date:08/29/2024 01:00:00 PM Scheduled Provider:Nigel SMITH, CAP SIZER-PHOTO OFFSET PRINTER, [place] [facility] Appointment Type: Open Appointment Date:08/31/2024 11:00:00 AM Scheduled Provider: Location:[facility] Appointment Type:Surgery FT Appointment Date:12/18/2024 11:00:00 AM Scheduled Provider:Rick Hernandez PA-C [facility] [place] Appointment Type:Cardiology Follow Up (FT) Future Scheduled Tests Laboratory* Hep B Core Ab, Tot 11/02/23 * Ppihf-8-Oznbglfdjhw 11/02/23 * B-Type Natriuretic Peptide 10/25/23 * [...] * Iron Level 11/02/23 * PT 11/02/23 [facility] Doc Evaluation + Plan note Future Appointments Appointment Date:07/18/2024 12:00:00 PM Scheduled Provider:Nigel SMITH, [place] ESPINO Location:[facility] Appointment Type: Open Appointment Date:08/29/2024 01:00:00 PM Scheduled Provider:SRINIVAS Pereyra Tammy L. Location:[facility] Appointment Type: Open Appointment Date:08/31/2024 11:00:00 AM Scheduled Provider: Location:[facility] Appointment Type:Surgery FT Appointment Date:12/18/2024 11:00:00 AM Scheduled Provider:Rick Hernandez PA-C Location[facility] [place] Appointment Type:Cardiology Follow Up (FT) Diagnostic Tests Pending * HgbA1c 07/13/24 Future Scheduled Tests Laboratory* Hep B Core Ab, Tot 11/02/23 * Olbov-8-Pnukrrzaegl 11/02/23 * B-Type Natriuretic Peptide 10/25/23 * [...] Level 11/02/23 * PT 11/02/23 [facility] Evaluation + Plan note Future Appointments Appointment Date:08/31/2024 11:00:00 AM Scheduled Provider: Location:[facility] Appointment Type:Surgery FT Appointment Date:09/12/2024 01:00:00 PM Scheduled Provider:Nigel SMITH, [place] ESPINO Location:[facility] Appointment Type: Open Appointment Date:12/18/2024 11:00:00 AM Scheduled Provider:Rick Hernandez PA-C [facility] Appointment Type:Cardiology Follow Up (FT) Future Scheduled Tests Laboratory* Hep B Core Ab, Tot 11/02/23 * Eekkz-2-Wqfholpshqx 11/02/23 * B-Type Natriuretic Peptide 10/25/23 * [...] * Iron Level 11/02/23 * PT 11/02/23 [facility] [place] Evaluation + Plan note Future Appointments Appointment Date:09/12/2024 01:00:00 PM Scheduled Provider:Nigel SMITH, [place] ESPINO Location:[facility] Appointment Type: Open Appointment Date:12/18/2024 11:00:00 AM Scheduled Provider:Rick Hernandez PA-C [facility] Appointment Type:Cardiology Follow Up (FT) Future Scheduled Tests Laboratory* Hep B Core Ab, Tot 11/02/23 * Cpvhp-1-Xixirqjvhpu 11/02/23 * B-Type Natriuretic Peptide 10/25/23 * [...] Level 11/02/23 * PT 11/02/23 [facility] Evaluation + Plan note Future Appointments Appointment Date:12/18/2024 11:00:00 AM Scheduled Provider:Rick Hernandez PA-C [facility] Appointment Type:Cardiology Follow Up (FT) Appointment Date:12/19/2024 12:40:00 PM Scheduled Provider:Nigel SMITH, DARLEEN-[place] VILLATORO Location:[facility] Appointment Type: Open Future Scheduled Tests Laboratory* Hep B Core Ab, Tot 11/02/23 * Vowen-8-Bhfnfhlqltx 11/02/23 * B-Type Natriuretic Peptide 10/25/23 * [...] Level 11/02/23 * PT 11/02/23 [facility] evaluation + Plan note Future Appointments Appointment Date:12/19/2024 12:40:00 PM Scheduled Provider:Nigel SMITH, DARLEEN-[place] VILLATORO Location:[facility] Appointment Type: Open Appointment Date:01/01/2025 02:00:00 PM Scheduled Provider:Rick Hernandez PA-C [facility] Appointment Type:Cardiology Follow Up (FT) [facility] evaluation + Plan note Future Appointments Appointment Date:01/01/2025 02:00:00 PM Scheduled Provider:Rick Hernandez PA-C [facility] Appointment Type:Cardiology Follow Up (FT) Appointment Date:01/02/2025 01:40:00 PM Scheduled Provider:SRINIVAS Pereyra Tammy L. Location:[facility] Appointment Type:FM Open Future Scheduled Tests Laboratory* Microalbumin Level Urine 12/19/24 * Urine Microalbumin/Creatinine Ratio 12/19/24 [facility] evaluation + Plan note Future Appointments Appointment Date:01/02/2025 01:40:00 PM Scheduled Provider:SRINIVAS Pereyra Tammy L. Location:[facility] Appointment Type:FM Open Appointment Date:01/07/2025 12:30:00 PM Scheduled Provider: [facility]oint[facility] Type:PUL Pulmonary Function Test (FT) Future Scheduled Tests Laboratory* Microalbumin Level Urine 12/19/24 * Urine Microalbumin/Creatinine Ratio 12/19/24 * Basic Metabolic Panel 01/02/25 [facility] evalulnawt + Plan note Future Appointments Appointment Date:01/07/2025 12:30:00 PM Scheduled Provider: [facility] Appoint[facility] Type:PUL Pulmonary Function Test (FT) Appointment Date:01/29/2025 08:30:00 AM Scheduled Provider:Rick Hernandez PA-C [facility] Appointment Type:Cardiology Follow Up (FT) Appointment Date:02/04/2025 01:40:00 PM Scheduled Provider:SRINIVAS Pereyra Tammy L. Location:[facility] Appointment Type: Open Future Scheduled Tests Laboratory* Basic Metabolic Panel 01/02/25 [facility] evaluation + Plan note Future Appointments Appointment Date:01/29/2025 08:30:00 AM Scheduled Provider:Rick Hernandez PA-C [facility] Appointment Type:Cardiology Follow Up (FT) Appointment Date:02/04/2025 01:40:00 PM Scheduled Provider:SRINIVAS Pereyra Tammy L. [facility] Appoint[facility] Type: Open Future Scheduled Tests Laboratory* Basic Metabolic Panel 01/02/25 [facility] evaluation + Plan note Future Appointments Appointment Date:03/05/2025 01:00:00 PM Scheduled Provider:SRINIVAS Pereyra Tammy L. [facility] Appointment Type:FM Open Appointment Date:03/12/2025 01:15:00 PM Scheduled Provider:Rick Hernandez PA-C Location:[facility] Appointment Type:Cardiology Follow Up (FT) Future Scheduled Tests Laboratory* Basic Metabolic Panel 01/02/25 [facility] evaluation + Plan note Future Appointments Appointment Date:03/12/2025 01:15:00 PM Scheduled Provider:Rick Hernandez PA-C [facility] Appointment Type:Cardiology Follow Up (FT) Future Scheduled Tests Laboratory* Basic Metabolic Panel 01/02/25 [facility] evaluation + Plan note Future Appointments Appointment Date:05/21/2025 08:00:00 AM Scheduled Provider: [facility] Appoint[facility] Type:CV Echo Stress (FT) Appointment Date:06/04/2025 09:00:00 AM Scheduled Provider:Rick Hernandez PA-C [facility] Appointment Type:Cardiology Follow Up (FT) Future Scheduled Tests Laboratory* Basic Metabolic Panel 01/02/25 Radiology* EC Stress Echo Complete w/ Contrast 05/21/25 [facility] evaluation note* Diagnosis SOB (shortness of breath) Shortness of breath Obstructive sleep apnea syndrome Obstructive sleep apnea (adult) (pediatric) Moderate persistent asthma without complication Unspecified asthma Tobacco abuse Tobacco use disorder documented in this encounter [employer] Work Phone: evaluation note* Diagnosis SOB (shortness of breath) Shortness of breath Obstructive sleep apnea (adult) (pediatric) Moderate persistent asthma without complication Unspecified asthma documented in this encounter [employer] Work Phone: evaluation note* Diagnosis Hypertension, unspecified type Bilateral leg edema Edema documented in this encounter [employer] Phone: evaluation note* Diagnosis Onset Date Resolution Status Acute congestive heart failure acuteAcute exacerbation of CHF (congestive heart failure)acuteAcute respiratory failure with hypoxiaacuteChest painacuteShortness of breathacute [facility] Work Phone: Evaluation note* Diagnosis Onset Date Resolution Status Acute congestive heart failure acuteAcute exacerbation of CHF (congestive heart failure)acuteAcute respiratory failure with hypoxiaacuteChest painacuteCOPD with acute exacerbationacute Shortness of breathacute [facility] Work Phone: Evaluation note* Diagnosis Alcohol abuse- Primary Alcohol abuse, unspecified documented in this encounter [employer] Work Phone: evaluation note* Diagnosis Left hand weakness Muscle weakness (generalized) documented in this encounter [employer] Phone: evaluation note* Diagnosis Weakness of both legs Other musculoskeletal symptoms referable to limbs documented in this encounter [employer] Work Phone: evaluation note* Diagnosis Fatigue, unspecified type Screening, lipid Screening for lipoid disorders documented in this encounter [facility] [employer] Phone: evaluation note* Diagnosis Right hip pain Pain in joint, pelvic region and thigh documented in this encounter [facility] [employer] note* Diagnosis Gastroesophageal reflux disease, unspecified whether esophagitis present- Primary Morbid obesity with BMI of 50.0-59.9, adult BRENDA (obstructive sleep apnea) Obstructive sleep apnea (adult) (pediatric) Type 2 diabetes mellitus without complication, without long-term current use of insulin [facility] Diagnosis Onset Date Resolution Status Admit Date Lumbar radiculopathy acuteOctober 2024 9:52am [facility] Work Phone: Hospital course Narrative No data available for this section [facility] Medicine Doc Hospital Discharge instructions No data available for this section [facility] Additional Instructions Continue use of CPAP as before.[facility] Work Phone: Hospital Discharge instructions* Attachments The following attachments cannot be sent through Care Everywhere. * Alcohol Intoxication: Acute ([place]) [facility]: progress note No data available for this section [facility] Doc reason for referral (narrative) Referred by: Parish PATE [facility] reason for referral (narrative) Referred by: Lupis SCHWARTZ MD, FAAFP Referred by: Lupis SCHWARTZ MD, FAAFP [facility] Reqekb for referral (narrative) , colonscopy, hx of polyps Referred by: Nigel SMITH, CAP SIZER-PHOTO OFFSET PRINTERParis [facility] reason for referral (narrative) , X-ray tonight, failed PT Referred by: Nigel SMITH, CAP SIZER-PHOTO OFFSET PRINTERParis. [facility] reason for referral (narrative)No reason for referral information availableSelect [facility] Work Phone: Assessments Diagnosis Syncope and [...] 06/18/2018 1:23 PM06/19/2018 8:22 PMFull Code04/26/2018 5:22 PM10 1:14 PMFull Code04/26/2018 11:04 AM04/26/2018 5:16 PMFull [...] Time Advance Directives No September 10, 023 12:11pm Advance Directive Response Recorded Date/ [...] 1:23 PM 06/19/2018 8:22 PMFull Code04/26/2018 5:22 PM10 1:14 PMFull Code 04/26/2018 11:04 AM04/26/2018 5:16 PM Reason for Referral StatusReasonSpecialtyDiagnoses / ProceduresReferred By ContactReferred To ContactOpenCardiology Diagnoses Syncope and collapse Pre-operative clearance Essential hypertension Hyperlipidemia, unspecified hyperlipidemia type Vitamin D deficiency Procedures EKG 12 Lead Joselito Hsu MD [address] [place] [address] StatusReasonSpecialtyDiagnoses / ProceduresReferred By ContactReferred To ContactNot Required - RecondoPulmonary Function Testing Diagnoses SOB (shortness of breath) Procedures Full PFT Study With Bronchodilator HC BEFORE / AFTER BRONCHODILATOR Joselito Hsu MD [address] [place] [address] [facility] [address] [place] [id number] StatusReasonSpecialtyDiagnoses / ProceduresReferred By ContactReferred To ContactPending ReviewRadiology Diagnoses Hypertrophy of uterus Right lower quadrant pain Procedures US NON OB TRANSVAGINAL Mulu Dean APRN [facility] [address] [place] [address] StatusReasonSpecialtyDiagnoses / ProceduresReferred By ContactReferred To ContactOpenRadiology Diagnoses Hypertrophy of uterus Right lower quadrant pain Procedures US PELVIS COMPLETE Mulu Dean APRN [facility] [address] [place] [phone] StatusReasonSpecialtyDiagnoses / ProceduresReferred By ContactReferred To ContactOpenRadiology Diagnoses RLQ abdominal pain Procedures CT ABDOMEN PELVIS W IV CONTRAST Additional Contrast? Oral Mulu Dean APRN [facility] [address] [place] [address] SpecialtyDiagnoses / ProceduresReferred By ContactReferred To Contact Diagnoses SOB (shortness of breath) Obstructive sleep apnea syndrome Moderate persistent asthma without complication Tobacco abuse Procedures Full PFT Study With Bronchodilator Mulu Dean APRN [facility] [address] [place] [address] Referral IDStatusReasonStart DateExpiration DateVisits RequestedVisits [id number] / ProceduresReferred By ContactReferred To ContactCardiology Diagnoses Hypertension, unspecified type Bilateral leg edema I10 (ICD-10-CM) - Hypertension, unspecified type Procedures Echocardiogram complete NC ECHO TTHRC R-T 2D W/WOM-MODE COMPL SPEC&COLR D [id number] - NC ECHO TTHRC R-T 2D W/WOM-MODE COMPL SPEC&COLR D Lupis Schwartz MD [address] [place] [address] Referral AngelikatusReFred DateExpiration DateVisits RequestedVisits [id number] Discharge Instructions * Instructions* Echo Paiz, RN - 03/17/2020 Discharge Instructions for Colonoscopy [...] one drug, even if it is an twhp-ntx-btpbvvz medication, herb, or dietary supplement, be sure [...] / AFTER BRONCHODILATOR Joselito Hsu MD [address] [place] [address] [facility] [address] [place] [address] StatusReasonSpecialtyDiagnoses / ProceduresReferred By ContactReferred To ContactPending ReviewRadiology Diagnoses Hypertrophy of uterus Right lower quadrant pain Procedures HC US PELVIS COMPLETE Mulu Dean APRN [facility] [address] [place] [address] [facility] [address] [place] [address] StatusReasonSpecialtyDiagnoses / ProceduresReferred By ContactReferred To Contact Diagnoses Right lower quadrant abdominal pain Weight gain RIGHT LOWER ABDOMINAL PAIN, WEIGHT GAIN Procedures NC COLONOSCOPY FLX DX W/COLLJ SPEC WHEN PFRMD NC ESOPHAGOGASTRODUODENOSCOPY TRANSORAL DIAGNOSTIC COLONOSCOPY EGD ESOPHAGOGASTRODUODENOSCOPY Glenn Malik MD [address] [facility] [address] [place] [address] [facility] StatusReasonSpecialtyDiagnoses / ProceduresReferred By ContactReferred To ContactClosedRadiology Diagnoses Right lower quadrant pain Procedures CT ABDOMEN PELVIS W CONTRAST Mulu Dean APRN [facility] [address] [place] [address] [place] [address] SpecialtyDiagnoses / ProceduresReferred By ContactReferred To Contact Diagnoses SOB (shortness of breath) Obstructive sleep apnea syndrome Moderate persistent asthma without complication Tobacco abuse Procedures Full PFT Study With Bronchodilator Mulu Dean APRN - [facility] [address] [place] [address] Referral IDStatusReasonStart DateExpiration DateVisits RequestedVisits [id number] ClassSpecialtyDiagnoses / ProceduresReferred By ContactReferred To Contact Cardiology Diagnoses Hypertension, unspecified type Bilateral leg edema I10 (ICD-10-CM) - Hypertension, unspecified type Procedures Echocardiogram complete NC ECHO TTHRC R-T 2D W/WOM-MODE COMPL SPEC&COLR D 80831 - [place] ECHO TTHRC R-T 2D W/WOM-MODE COMPL SPEC&COLR D Lupis Schwartz MD [address] [place] [address] Referral IDStatusReasonModesto DateExpiration DateVisits RequestedVisits [id number]/[id number] PainChest pain, SOB x1 day patient states this started after had 2 bottles of rum today SpecialtyDiagnoses / ProceduresReferred By ContactReferred To ContactRadiology Diagnoses Fatigue, unspecified type Screening, lipid Procedures VL DUP LOWER EXTREMITY VENOUS BILATERAL US DUP LOWER EXTREMITIES BILATERAL VENOUS Carmen Haley, [address] [place] [address] Referral IDStatNinaS[facility] DateExpiration DateVisits RequestedVisits [id number] Maureen is interested in bariatric surgery for weight loss and improvement of comorbid conditions.SpecialtyDiagnoses / ProceduresReferred By ContactReferred To Contact Multispecialty Diagnoses Morbid obesity with BMI of 50.0-59.9, adult BRENDA (obstructive sleep apnea) Type 2 diabetes mellitus with morbid obesity Benign hypertension [facility], Other [address] [place] [address] Phone: tel: Coco Dean MD [address] [place] [address] Phone: tel: Referral IDStatusNinaasonModesto DateExpiration DateVisits RequestedVisits [id number] Review/[id number] Care Teams (unrecognized sec tion and content) Team MemberRelationshipSpecialtyStart DateEnd Date Mulu Dean APRN - [employer] [address] [place] [address] PCP - Generalmi Medicine02/17/17Team MemberRelationshipSpecialtyStart DateEnd Date Mulu Dean APRN - [employer] [address] [place] [address] P[address] - [facility] Medicine02/17/17Team MemberRelationshipSpecialtyStart DateEnd Date Mulu Dean APRN - [employer] [address] [place] [address] PCP - [facility]02/17/17Team MemberRelationshipSpecialtyStart DateEnd Date Mulu Dean APRN - [employer] [address] [place] [address] [facility]/17/17Team MemberRelationshipSpecialtyStart DateEnd Date Mulu Dean APRN - [employer] [address] [place] [address] PCP - Generalmi Medicine02/17/17Team MemberRelationshipSpecialtyStart DateEnd Date Mulu Dean APRN - [employer] [address] [place] [address] [facility]02/17/17Team MemberRelationshipSpecialtyStart DateEnd Date Mulu Dean APRN - [employer] [address] [place] [address] [facility] - [facility]/17/17 Team Status: Active Member Role Status Dates NON STAFF Primary Care Provider Active Team Status: Active Member Role Status Dates NON STAFF Primary Care Provider Active Joo Ramos , DOEmergency ProviderActiveObaydah Mita Mejiaomar , MDAdmit Provider, Attending ProviderActive Team Status: Active Member Role Status Dates Lupis Schwartz MD Primary Care Provider Active Team Status: Inactive Member Role Status Dates Joo Ramos , DO Emergency Provider Active Obaydacuca M Daromar , MDAdmit ProviderActiveAnoop Daniel , MDAttending Provider ActiveJudy Yoder Care ProviderActiveTeam MemberRelationship SpecialtyStart DateEnd Date Mulu Dean CAP SIZER - [employer] [address] [place] [address] PCP - GeneralFamily Medicine02/17/17Team MemberRelationshipSpecialtyStart DateEnd Date Mulu Dean CAP SIZER - [employer] [address] [place] [id number] PCP - GeneralFamily Medicine02/17/17Team MemberRelationshipSpecialtyStart DateEnd Date Mulu Dean CAP SIZER - [employer] [address] [place] [address] PCP - GeneralFamily Medicine02/17/17Team MemberRelationshipSpecialtyStart DateEnd Date Mulu Dean APRN - [employer]INTER PCP - GeneralFamily Medicine02/17/17Team MemberRelationshipSpecialtyStart DateEnd Date Paris Rust CAP SIZER - PH[employer] [address] [place] [address] PCP - GeneralNurse Practitioner Jgxtiq51/27/23Team MemberRelationshipSpecialty Start DateEnd Date Paris Rust CAP SIZER - [employer] [address] [place] [id number] PCP - GeneralNurse Practitioner Wvxijh57/27/23Team MemberRelationshipSpecialty Start DateEnd Date Paris Rust APRN - [employer] [address] [place] [address] PCP - GeneralNurse Practitioner Rihhxb81/27/23Team MemberRelationshipSpecialty Start DateEnd Date Paris Rust CNP [address] [place] [address] PCP - GeneralNurse Practitioner - [facility]11/07/24 Team Status: Active Member Role Status Dates Paris Rust NP-C Primary Care Provider Active Team Status: Inactive Member Role Status Dates Glenn Perkins DO Attending Provider Active S tart: April 03, 2025 End: April 03, 2025Tagregor Rust NP-CPrimary Care ProviderActiveStart: April 03, 2025 End: April 03, 2025 Goals (unrecognized section and content) Goals may be documented in a n alternate section INFORMATION SOURCE (unrecogn ized section and content) DATE CREATED AUTHOR 09/18/2022 [facility] DATE CREATED AUTHOR AUTHOR'S ORGANIZ ATION 02/10/2023 [facility] DATE CREATED AUTHOR AUTHOR'S ORGANIZ ATION 09/01/2023 [facility] DATE CREATED AUTHOR AUTHOR'S ORGANIZ ATION 12/23/2023 [facility] DATE CREATED AUTHOR AUTHOR'S ORGANIZ ATION 07/18/2024 [facility] DATE CREATED AUTHOR AUTHOR'S ORGANIZ ATION 09/06/2024 [facility] DATE CREATED AUTHOR AUTHOR'S ORGANIZ ATION 09/15/2024 [facility] DATE CREATED AUTHOR AUTHOR'S ORGANIZ ATION 12/21/2024 [facility] DATE CREATED AUTHOR AUTHOR'S ORGANIZ ATION 12/23/2024 [facility] DATE CREATED AUTHOR AUTHOR'S ORGANIZ ATION 12/27/2024 [facility] DATE CREATED AUTHOR AUTHOR'S ORGANIZ ATION 12/28/2024 [facility] DATE CREATED AUTHOR AUTHOR'S ORGANIZ ATION 12/29/2024 [facility] DATE CREATED AUTHOR AUTHOR'S ORGANIZ ATION 12/30/2024 [facility] DATE CREATED AUTHOR AUTHOR'S ORGANIZ ATION 01/03/2025 [facility] DATE CREATED AUTHOR AUTHOR'S ORGANIZ ATION 01/04/2025 [facility] DATE CREATED AUTHOR AUTHOR'S ORGANIZ ATION 01/06/2025 [facility] DATE CREATED AUTHOR AUTHOR'S ORGANIZ ATION 01/13/2025 [facility] DATE CREATED AUTHOR AUTHOR'S ORGANIZ ATION 01/25/2025 [facility] DATE CREATED AUTHOR AUTHOR'S ORGANIZ ATION 01/31/2025 [facility] DATE CREATED AUTHOR AUTHOR'S ORGANIZ ATION 02/06/2025 [facility] DATE CREATED AUTHOR AUTHOR'S ORGANIZ ATION 04/27/2025 [facility] DATE CREATED AUTHOR AUTHOR'S ORGANIZ ATION 05/14/2025 [facility] Scheduled Active and Recently Administ ered Medications (unrecognized section and content) Medication Order10/13//// ipratropium (ATROVENT) 0.02 % nebulizer solution 0.5 [...] BE BASED ON THE PRIMARY CLINICAL RECORDS. [facility]. provides no warranty or guarantee of the accuracy or completeness of information in this document.
--- NOTE | 2025-05-22 11:12 | PM.CN ---
Consult Note: HPI Data of Consult Patient: known to practice within the last 3 years Consult date: 05/22/25 Requesting Physician: Eda Christianson NP Primary Care Provider: Non-Staff Physician, Consult Narrative Reason for consult: f/u Narrative: Carmen Casiano a 64 year old female presents for evaluation and management of chronic low back pain. hx of lumbar stenosis, lumbar ddd, and lumbar spondylosis per prior lumbar MRI and xray. pt has failed to benefit from > 6 weeks of PT and provider guided HEP, heat, ice, tylenol, and ibuprofen. pain today 10/10 in right low back and RLE. pain increased with standing, walking, activity. utilizing flexeril 10mg tid prn, meloxicam 7.5mg bid prn, and gabapentin 1200mg TID without side effects, no significant improvement. pt interested in further working up for scs trial/implant however needs to lose weight first. since last visit she underwent a right sij injection with no relief while anesthetized or ongoing. cc:: CC: Eda Christianson NP Review of Systems ROS Musculoskeletal Reports: back pain and extremity pain PFSH PFSH Medical History Rheumatoid arthritis ?M06.9 - Rheumatoid arthritis, unspecified (ICD-10) Diabetes ?E11.9 - Type 2 diabetes mellitus without complications (ICD-10) Sleep apnea ?G47.30 - Sleep apnea, unspecified (ICD-10) Asthma ?J45.909 - Unspecified asthma, uncomplicated (ICD-10) CHF (congestive heart failure) ?I50.9 - Heart failure, unspecified (ICD-10) Surgical History History of cataract extraction ?Z98.49 - Cataract extraction status, unspecified eye (ICD-10) History of foot surgery ?Z98.890 - Other specified postprocedural states (ICD-10) History of knee replacement ?Z96.659 - Presence of unspecified artificial knee joint (ICD-10) Meds Home Medications and Allergies Home Medications ?Medication ?Instructions ?Recorded ?Confirmed ?Type aripiprazole 2 mg tablet (Abilify) 2 mg PO DAILY 05/18/23 05/13/25 History empagliflozin 10 mg tablet 10 mg PO DAILY 05/18/23 05/13/25 History (Jardiance) fluoxetine 20 mg capsule 40 mg PO DAILY 05/18/23 05/13/25 History furosemide 40 mg tablet 40 mg PO DAILY 05/18/23 05/13/25 History glipizide 2.5 mg tablet 2.5 mg PO DAILY 05/18/23 05/13/25 History pantoprazole 40 mg tablet,delayed 40 mg PO DAILY 05/18/23 05/13/25 History release potassium chloride 20 mEq 20 meq PO DAILY 05/18/23 05/13/25 History tablet,extended release(part/cryst) (Klor-Con M) rosuvastatin 40 mg tablet 40 mg PO DAILY 05/18/23 05/13/25 History sacubitril 24 mg-valsartan 26 mg 1 tab PO BID 05/18/23 05/13/25 History tablet (Entresto) spironolactone 25 mg tablet 25 mg PO DAILY 05/18/23 05/13/25 History dulaglutide 1.5 mg/0.5 mL 1.5 mg subcut QWEEK 01/26/24 05/13/25 History subcutaneous pen injector (Trulicity) meloxicam 7.5 mg tablet 7.5 mg PO BID 10/17/24 05/13/25 History cyclobenzaprine 10 mg tablet 10 mg PO TID PRN muscle spasm #90 04/11/25 05/13/25 Rx tabs gabapentin 800 mg tablet 800 mg PO TID #90 tabs 04/11/25 04/22/25 Rx cyclobenzaprine 10 mg tablet 10 mg PO TID PRN muscle spasm #90 05/08/25 Rx tabs gabapentin 600 mg tablet 1,200 mg (2 x 600 mg) PO TID #180 05/08/25 05/13/25 Rx tabs meloxicam 7.5 mg tablet 7.5 mg PO BID PRN pain #60 tabs 05/08/25 Rx Allergies Allergy/AdvReac Type Severity Reaction Status Date / Time No Known Drug Allergies Allergy Verified 05/13/25 08:24 Exam Constitutional Documenting provider has reviewed patient's vital signs: yes Common normals: no apparent distress, oriented x3 and alert General appearance: cooperative Nutritional appearance: obese HENMT Common normals: normocephalic, hearing grossly normal bilaterally and moist oral mucous membranes Head and scalp: normocephalic Eye Common normals: PERRL Pupil: PERRL Neck & C-Spine Common normals: full ROM General: normal visual inspection Chest Common normals: inspection of chest normal Respiratory Common normals: normal respiratory effort, no retractions and no use of accessory muscles Back & Pelvis Lumbar spine/lower back: ROM limited, pain with ROM and straight leg raise positive right Other: strength 5/5 in BLE right sij negative aliyah(patricks), gaenslens, thigh thrust, compression test radiculopathy noted to right L5/S1 Neuro Common normals: oriented x3 Sensorium/orientation: alert Psych Common normals: mental status grossly normal, thought process normal, cooperative, affect normal, speech normal and activity/motor behavior normal Speech: normal speech Thought process: normal thought process Results Additional Findings Additional findings: If on a controlled substance or opioids, I have checked an [place] report on this patient and there are no aberrancies noted in the prescribing history.??If on a controlled substance or opioid a drug screen was completed and reviewed within the last year, and if there has not been a drug screen completed we ordered one today to monitor higher risk, state monitored pain medication use. As part of providing excellent, safe, comprehensive care, the following was completed at our patient's visit: 1. A medication reconciliation and review to ensure accurate knowledge of current/active medications, including asking our patients to inform us about any xloe-aft-nplfqxk medications or herbal remedies/nutritional supplements/alternative remedies. 2. A review to specifically ensure our patients have had annual screening for screening for depression, screening for tobacco use, and screening for unhealthy alcohol use. For concerning screenings had a discussion with the patient, provided patient education, and recommended follow-up with primary care provider when appropriate. If patient noted with a risk of falling, they received education on strength, gait, and balance training to prevent future risk of falling. Portions of this note may have been carried over from the previous visit and updated as appropriate. Please note this office utilizes paper charting in addition to the electronic medical record. A list of current medications, vitals, and PMH is available there as the clinical staff outside of myself do not have access to [employer] charting during the clinic day operations. As part of providing quality comprehensive care the current medications, vitals, and PMH were reviewed in the paper chart. Assessment and Plan Assessment and Plan (1) Sacroiliitis: (2) Lumbar stenosis with neurogenic claudication: (3) Lumbar spondylosis: (4) Myalgia: (5) Marijuana use: Assessment and Plan: last utilized around 1 week ago, patient agreeable to complete cessation Plan The patient has had over 3 months of moderate to severe low back and RLE pain with functional impairment and inadequate response to conservative care including NSAIDS (unless there are contraindication such as concurrent blood thinners), multiple oral or topical pain medications, and home exercise program/physical therapy.? Patient has completed >6 weeks of guided home exercise program and/or formal physical therapy program without relief of their symptoms.? The Oswestry Disability Index was completed, and the patient scored a 62%.? at this time decrease gabapentin 800mg tid, goal to wean off of. can trial zonegran or lyrica dc flexeril, start robaxin 500-1000mg tid prn pain/spasms defer tramadol trial due to thc use, pt agreeable to stopping continue weight loss efforts f/u 1 month to evaluate response to medication changes
== END 2025-05-22 10:30 | disposition home or self-care (01) ==
LOC: PM 10:29
PROVIDERS: Visit Provider Nurse Practitioner
DX: M46.1 Sacroiliitis, not elsewhere classified (principal); M48.062 Spinal stenosis, lumbar region with neurogenic claudication; M47.816 Spondylosis without myelopathy or radiculopathy, lumbar region; M79.10 Myalgia, unspecified site
CPT/HCPCS: G0463

== ENCOUNTER 2025-06-20 10:44 | Outpatient (OUT) | payer OTHER, SELFPAY ==
--- OUTSIDE RECORDS SUMMARY | 2025-06-20 10:46 | XMS_ITS | Clinical Summary ---
Author Organization [facility] Address [address] [place] [address] Phone Care Team Providers Care Rn Ed Name Role Phone Unavailable Primary Care Provider Unavailabl e Social History Tobacco UseTypesPacks/DayYears UsedDateSmoking Tobacco: Never Assessed CommentsUnknownSex and Gender InformationValueDate RecordedSex Assigned at Not on fileLegal QxdKljtjr00/13/2023 11:45 AM EDTGender IdentityNot on file Sexual OrientationNot on file Plan of Treatment Health MaintenanceDue DateLast DoneCommentsCT Vgxkxtibkjlu29/15/1963Colonoscopy 1962Colorectal Cancer Pcwbarmtt39/15/1963FIT-DNA (Cologuard)1962FIT 1962HIV Awyjegzgf90/15/1963Lipid Panel1962 4097Rgjwhartudgjk48/15/1963 Yearly Adult Pvzdlpnt50/15/1963MMR Vaccines (1 of 1 - Standard series)11/16/1963 Hepatitis C Ihyiqhjiu61/15/1981Cervical Cancer Ifyfakioz28/15/1984HPV/Cotest 11/16/1983Pap Smear11/16/1983DTaP/Tdap/Td Vaccines (1 - Tdap)1984Mammogram 2002Pneumococcal [...]
--- OUTSIDE RECORDS SUMMARY | 2025-06-20 10:46 | XMS_ITS | Clinical Summary ---
Author Organization [facility] Address [address] [place] [address] Care Team Providers Care Food Production Worker Name Role Phone Unavailable Primary Care Provider Unavailabl e Social History Tobacco UseTypesPacks/DayYears UsedDateSmoking Tobacco: Never Assessed CommentsUnknownSex and Gender InformationValueDate RecordedSex Assigned at Not on fileLegal RbfNsjksz61/15/2023 8:15 PM EDTGender IdentityNot on fileSexual OrientationNot on file Last Filed Vital Signs Vital SignReadingTime TakenCommentsBlood Aqsdhlma916/9411 12:00 PM EST Pulse--Temperature--Respiratory Rate--Oxygen Saturation--Inhaled Oxygen Concentration--Fvjsle897 kg (295 lb 6.4 oz)06/01/2018 12:00 PM ENTLuqjda740.4 cm (5' 5.5 )06/01/2018 12:00 PM ESTBody Mass Index48.41108/01/2017 12:00 PM EST Plan of Treatment Not on file Insurance * Guarantor: Carmen Casiano KAccount TypeRelation to PatientDate of BirthPhone Billing AddressPersonal/BpzqqqEcma55/15/1961 [address] [place] [address]
--- OUTSIDE RECORDS SUMMARY | 2025-06-20 10:48 | XMS_ITS | Clinical Summary ---
Author Organization [facility] Address [address], [address] [place] [address] Care Team Providers Care Supervisor [employer] Name Role Phone Nigel Paris DARLEEN - GROUP HOME MANAGER Primary Care Provider + Allergies No known [...] ctive Active Problems ProblemNoted DateDiagnosed DateLeukedema of qspags0410/08/20207594Njvfrz86/07/2021 Pain, abdominal, lmlckjgebgl66/14/2020Syncope and /16/2018Degenerative arthritis of left knee03/16/2018Presence of left artificial knee joint03/16/2018 DJD (degenerative joint disease)03/15/2018 Immunizations ImmunizationAdministration DatesNext DueInfluenza Virus Jtiznzs6503/19/2018 Family History RelationNameStatusCommentsBrother 1AliveBrother 2AliveBrother 3AliveFather DeceasedMaternal [...] you with harm?Not on file04/29/2023Read-Only, Retired: Physical TuueaTgtfzu96/27/2023Read-Only, Retired: Verbal PcmwkZgnuus49/27/2023Read-Only, Retired: Emotional abuseDenies 04/29/2023Financial abuseNot on file04/29/2023Sexual abuseNot on file04/29/2023 CommentsNoSex and Gender InformationValueDate RecordedSex Assigned at BirthNot on fileLegal MsgUtpnke81/17/2017 11:43 AM EDTGender IdentityNot on file Sexual OrientationNot on file Last Filed Vital Signs Vital SignReadingTime TakenCommentsBlood Bvshtjxr508/7304 10:01 AM EDT Ghoja676410/06/2023 10:27 AM LXQJfppylgaavf72.8 ??C (98.2 ??F)10/06/2023 9:12 AM EDTRespiratory Tflw738810/06/2023 10:27 AM EDTOxygen Xqbtcgwvci39%10/06/2023 10:27 AM EDTInhaled Oxygen Concentration--Qcgwdi792.9 kg (357 lb)10/06/2023 9:10 AM AFINkfbsi733.6 cm (5' 6 )10/06/2023 9:10 AM EDTBody Mass Index57.62010/06/2023 9:10 AM EDT Plan of Treatment Health MaintenanceDue DateLast DoneCommentsDepression Nrnrkq0111/15/1974HIV screen 1977Hepatitis C vgbwhq8011/15/1980Pap smear11/16/1983Cervical cancer screen 1992HPV (without or with Pap)1992FIT/FOBT: Average risk11/16/2007 Fecal-DNA (Cologuard): Average risk11/16/2007Sigmoidoscopy/CT colonography 11/16/2007Shingles vaccine (3 of 3)/12/2020, 07/09/2020, 04/10/2020, Additional history existsBreast cancer /, 06/30/2017 Pneumococcal 50+ years Vaccine (2 of 2 - PCV), 12/16/2017 Respiratory Syncytial Virus (RSV) or age 60 yrs+ (1 - Risk 60-74 years 1-dose series)11/15/20220927Eibkpp39/07/699537/01/2024, 09/06/2019Flu vaccine (#1) /, 05/11/2022, 05/05/2021, Additional history existsCOVID-19 Vaccine ( season)/, 05/11/2022, 12/15/2021, Additional history oeoyvhYoholkmijqx03Colorectal Cancer Screen 03/17/2030DTaP/Tdap/Td vaccine (3 - Td or Tdap), 10/27/2014 Pneumococcal 0-49 years YepcbbnQtucatodpwfs64/08/2020, 12/16/2017A1C test (Diabetic or Prediabetic)Hrgqooqeeysy45/07/2024, 09/06/2019Diabetes screen Rrjartokxzwa29/07/2024, 09/06/2019Hepatitis A vaccineAged OutNo longer eligible based [...] on 03/15/2018 [facility]: KneeJNJ: [employer]-PMM04/02/[id number] / / [id number] Smartghv W/ Gent 40gr Must Order 20ea Implanted:Qty: 1 on 03/15/2018 by [facility]ementLeft: KneeJNJ: [employer]-PMM01/31/[id number] / / [id number] Smartghv W/ Gent 40gr Must Order 20ea Implanted:Qty: 2 on 04/26/2018 by [facility]ementRight: KneeJNJ: [employer]-PMM08/03/[id number] / / [id number] Knee Patella Asym X3 [id number] Implanted:Qty: 1 on 04/26/2018 by [facility]neeRight: KneeSTRYKER: ORTHOPAEDICS-PMM02/26/[id number] / / [id number] Procedures Procedure NamePriorityDate/TimeAssociated DiagnosisCommentsLIPID PANELRoutine 08/10/2023 3:41 PM EST HEMOGLOBIN V9VSakzquu20/07/2024 3:41 PM EST WANG DIGITAL SCREEN W OR WO CAD GUYULEPMAVkiualk74/29/2019 10:49 AM EDT Breast cancer screening from Last 3 Months or Most Recently Relevant to Health Maintenance Results * Hemoglobin A1C (08/10/2023 3:41 PM EST)ComponentValueRef RangeTest Method Analysis TimePerformed AtPathologist SignatureHemoglobin A1C5.44.0 - 6.0 % 08/10/2023 3:41 PM ESTMERCY LABORATORIESEstimated Avg Azsugwx092ck/dL 08/10/2023 3:41 PM ESTMERCY LABORATORIESComment: The ADA and AACC recommend providing the estimated average glucose result to permit better patient understanding of their HBA1c result. Specimen (Source)Anatomical Location / LateralityCollection Method / Volume Collection TimeReceived Time08/10/2023 3:41 PM EST08/10/2023 3:42 PM EST Narrative Authorizing ProviderResult TypeResult StatusTammandre Manning STORE ADMINISTRATIVE ASSISTANT - CNPCHEMISTRY ORDERABLESFinal ResultPerforming OrganizationAddressCity/State/ZIP CodePhone Number [facility] [address] [place] [address], [facility] [phone] [facility] [address] [id number], [facility] [phone] * (ABNORMAL) Lipid Panel (08/10/2023 3:41 PM EST)ComponentValueRef RangeTest MethodAnalysis TimePerformed AtPathologist DqyqhgrxsKxrbrpwmmcf130(H)<200 mg/dL08/10/2023 3:41 PM ESTMERCY LABORATORIESComment: Cholesterol Guidelines: <200 Desirable 200-240 ??Borderline >240 Undesirable HDL95>40 mg/dL08/10/2023 3:41 PM ESTMERCY LABORATORIESComment: HDL Guidelines: <40 Undesirable 40-59 ?Borderline >59 Desirable LDL Yvvipzvteiz125 - 130 mg/dL08/10/2023 3:41 PM ESTMERCY LABORATORIESComment: [...] EST Narrative Authorizing ProviderResult TypeResult StatusTammy Nigel STORE ADMINISTRATIVE ASSISTANT - CNPCHEMISTRY ORDERABLESFinal ResultPerforming OrganizationAddressCity/State/ZIP CodePhone Number [facility] [address] [address], [facility] [phone] [facility] [employer] [address] [place] [address], [facility] [phone] * WANG DIGITAL SCREEN W OR WO [...] 11:39 AM * Full Code Date ActivatedDate RljswrpybhiLccvjnrd87/16/2018 1:23 PM06/19/2018 8:22 PM * Full Code Date ActivatedDate RvrxlclutxkKatseeqi00/24/2018 5:22 04/27/2018 1:14 PM * Full Code Date ActivatedDate YuvfslnsvspXaqvltxk55/24/2018 11:04 AM04/26/2018 5:16 PM Care Teams Team MemberRelationshipSpecialtyStart DateEnd Date Paris Manning APRN - [place] [address] [place] [address] PCP - GeneralNurse Practitioner, Hcsphq04/27/23
--- NOTE | 2025-06-20 11:09 | PM.CN ---
Consult Note: HPI Data of Consult Patient: known to practice within the last 3 years Consult date: 06/20/25 Requesting Physician: Eda Christianson NP Primary Care Provider: Non-Staff Physician, MD Consult Narrative Reason for consult: low back and RLE pain Narrative: Carmen Casiano a 64 year old female presents for evaluation and management of chronic low back pain. hx of lumbar stenosis, lumbar ddd, and lumbar spondylosis per prior lumbar MRI and xray. pt has failed to benefit from > 6 weeks of PT and provider guided HEP, heat, ice, tylenol, and ibuprofen. pain today 9/10 in right low back and RLE. pain increased with standing, walking, activity. no longer utilizing robaxin, failed flexeril, unsure if shes taking mobic, stopped gabapenitn since last visit with increased pain. pt interested in further working up for scs trial/implant however needs to lose weight first. cc:: CC: Eda Christianson NP Review of Systems ROS Musculoskeletal Reports: back pain and extremity pain PFSH PFSH Medical History Rheumatoid arthritis ?M06.9 - Rheumatoid arthritis, unspecified (ICD-10) Diabetes ?E11.9 - Type 2 diabetes mellitus without complications (ICD-10) Sleep apnea ?G47.30 - Sleep apnea, unspecified (ICD-10) Asthma ?J45.909 - Unspecified asthma, uncomplicated (ICD-10) CHF (congestive heart failure) ?I50.9 - Heart failure, unspecified (ICD-10) Surgical History History of cataract extraction ?Z98.49 - Cataract extraction status, unspecified eye (ICD-10) History of foot surgery ?Z98.890 - Other specified postprocedural states (ICD-10) History of knee replacement ?Z96.659 - Presence of unspecified artificial knee joint (ICD-10) Meds Home Medications and Allergies Home Medications ?Medication ?Instructions ?Recorded ?Confirmed ?Type aripiprazole 2 mg tablet (Abilify) 2 mg PO DAILY 05/18/23 05/13/25 History empagliflozin 10 mg tablet 10 mg PO DAILY 05/18/23 05/13/25 History (Jardiance) fluoxetine 20 mg capsule 40 mg PO DAILY 05/18/23 05/13/25 History furosemide 40 mg tablet 40 mg PO DAILY 05/18/23 05/13/25 History glipizide 2.5 mg tablet 2.5 mg PO DAILY 05/18/23 05/13/25 History pantoprazole 40 mg tablet,delayed 40 mg PO DAILY 05/18/23 05/13/25 History release potassium chloride 20 mEq 20 meq PO DAILY 05/18/23 05/13/25 History tablet,extended release(part/cryst) (Klor-Con M) rosuvastatin 40 mg tablet 40 mg PO DAILY 05/18/23 05/13/25 History sacubitril 24 mg-valsartan 26 mg 1 tab PO BID 05/18/23 05/13/25 History tablet (Entresto) spironolactone 25 mg tablet 25 mg PO DAILY 05/18/23 05/13/25 History dulaglutide 1.5 mg/0.5 mL 1.5 mg subcut QWEEK 01/26/24 05/13/25 History subcutaneous pen injector (Trulicity) meloxicam 7.5 mg tablet 7.5 mg PO BID 10/17/24 05/13/25 History gabapentin 800 mg tablet 800 mg PO TID #90 tabs 04/11/25 04/22/25 Rx gabapentin 600 mg tablet 1,200 mg (2 x 600 mg) PO TID #180 05/08/25 05/13/25 Rx tabs meloxicam 7.5 mg tablet 7.5 mg PO BID PRN pain #60 tabs 05/08/25 Rx methocarbamol 500 mg tablet See Rx Instructions .Route 05/22/25 Rx .COMPLEX #180 tabs Allergies Allergy/AdvReac Type Severity Reaction Status Date / Time No Known Drug Allergies Allergy Verified 05/13/25 08:24 Exam Constitutional Documenting provider has reviewed patient's vital signs: yes Common normals: no apparent distress, oriented x3 and alert General appearance: cooperative Nutritional appearance: obese HENMT Common normals: normocephalic, hearing grossly normal bilaterally and moist oral mucous membranes Head and scalp: normocephalic Eye Common normals: PERRL Pupil: PERRL Neck & C-Spine Common normals: full ROM General: normal visual inspection Chest Common normals: inspection of chest normal Respiratory Common normals: normal respiratory effort, no retractions and no use of accessory muscles Back & Pelvis Lumbar spine/lower back: ROM limited, pain with ROM and straight leg raise positive right Other: strength 5/5 in BLE radiculopathy noted to right L5/S1 Neuro Common normals: oriented x3 Sensorium/orientation: alert Psych Common normals: mental status grossly normal, thought process normal, cooperative, affect normal, speech normal and activity/motor behavior normal Speech: normal speech Thought process: normal thought process Results Additional Findings Additional findings: If on a controlled substance or opioids, I have checked an [place] report on this patient and there are no aberrancies noted in the prescribing history.??If on a controlled substance or opioid a drug screen was completed and reviewed within the last year, and if there has not been a drug screen completed we ordered one today to monitor higher risk, state monitored pain medication use. As part of providing excellent, safe, comprehensive care, the following was completed at our patient's visit: 1. A medication reconciliation and review to ensure accurate knowledge of current/active medications, including asking our patients to inform us about any [id number] medications or herbal remedies/nutritional supplements/alternative remedies. 2. A review to specifically ensure our patients have had annual screening for screening for depression, screening for tobacco use, and screening for unhealthy alcohol use. For concerning screenings had a discussion with the patient, provided patient education, and recommended follow-up with primary care provider when appropriate. If patient noted with a risk of falling, they received education on strength, gait, and balance training to prevent future risk of falling. Portions of this note may have been carried over from the previous visit and updated as appropriate. Please note this office utilizes paper charting in addition to the electronic medical record. A list of current medications, vitals, and PMH is available there as the clinical staff outside of myself do not have access to [facility] charting during the clinic day operations. As part of providing quality comprehensive care the current medications, vitals, and PMH were reviewed in the paper chart. Assessment and Plan Assessment and Plan (1) Lumbar stenosis with neurogenic claudication: (2) Lumbar spondylosis: (3) Myalgia: (4) Marijuana use: Assessment and Plan: last utilized around 1 week ago, patient agreeable to complete cessation Plan The patient has had over 3 months of moderate to severe low back and RLE pain with functional impairment and inadequate response to conservative care including NSAIDS (unless there are contraindication such as concurrent blood thinners), multiple oral or topical pain medications, and home exercise program/physical therapy.? Patient has completed >6 weeks of guided home exercise program and/or formal physical therapy program without relief of their symptoms.? The Oswestry Disability Index was completed, and the patient scored a 58%.? start zonegran 50mg BID, risks vs benefits reviewed continue f/u with NS, may benefit from referral to [facility] due to severe pain and poor quality of life due to pain. unfortunately not a surgical candidate locally due to high BMI continue weight loss efforts f/u 1 month to evaluate response to medication changes
== END 2025-06-20 10:45 | disposition home or self-care (01) ==
LOC: PM 10:44
PROVIDERS: Visit Provider Nurse Practitioner
DX: M48.062 Spinal stenosis, lumbar region with neurogenic claudication (principal); M47.816 Spondylosis without myelopathy or radiculopathy, lumbar region; M79.18 Myalgia, other site; F12.90 Cannabis use, unspecified, uncomplicated
CPT/HCPCS: G0463